=== PATIENT | male | born 1950 | race Caucasian/White ===

== ENCOUNTER 2023-04-21 08:12 | Outpatient (OUT) | payer MEDICARE, SELFPAY ==
--- NOTE | 2023-04-21 09:10 | CA_ITS ---
Patient Name: NIMCO LARA MR#: [id number] : 1950 Exam Date: 04/21/2023 Ordering Doctor: DR ANUJA DENTON M.D. ECHOCARDIOGRAM REPORT PROCEDURE: CA ECHO DOPPLER COMPLETE INDICATIONS: ASHD COMPARISON: None. DESCRIPTION: COMPLETE ECHOCARDIOGRAM Real-time transthoracic echocardiography with 2D, M-mode, spectral and color flow Doppler performed. QUALITY: Technical quality was adequate. LEFT VENTRICLE: Normal chamber size. Moderate left ventricular hypertrophy. LV EF: Global left ventricular systolic function is normal. Visual estimation of left ventricular ejection fraction is 55%. DIASTOLIC: Grade I diastolic dysfunction. ATRIAL SEPTUM: Inadequately seen. LEFT ATRIUM: Normal chamber size. RIGHT ATRIUM: Normal chamber size. RIGHT VENTRICLE: Mild dilatation. Normal right ventricular systolic function. TRICUSPID VALVE: Normal mobility and thickness. No stenosis with trivial regurgitation. Unable to assess right-sided pressures due to lack of measurable tricuspid regurgitation. MITRAL VALVE: Normal mobility and thickness. No evidence of mitral valve stenosis. Mild mitral annular calcification. Trivial mitral regurgitation. AORTIC VALVE: Normal trileaflet appearance. No visible sclerosis. Normal leaflet mobility. No evidence of aortic valve stenosis. No aortic regurgitation. AORTIC ROOT: Normal diameter and appearance. PULMONIC VALVE: Normal thickness and mobility. No stenosis. Trivial regurgitation. PERICARDIUM: Anterior free space; trivial effusion versus fat pad. IVC: Mild dilatation. Measuring 2.2cm. Collapses with inspiration. CONCLUSION: 1. Global left ventricular systolic function is normal; visually estimated ejection fraction is 55 to 60% 2. Moderately increased left ventricular wall thickness 3. The right ventricle is mildly dilated with normal systolic function 4. Grade 1, mild diastolic dysfunction 5. No significant valvular abnormalities 6. Anterior free space; trivial effusion versus fat pad Adult Echocardiography Procedure Report Left Ventricle LVEDD (3.7 - 5.6 cm): 4.32 cm LVESD (2.2 - 4.0 cm): 3.38 cm LVIVS thickness (0.6 - 1.2 cm): 1.46 cm, 1.50 cm LVPW thickness (0.5 - 1.0 cm): 1.54 cm e': 0.06 m/s E - e': 12.91 LVOT Max Gradient: 2.49 mm[Hg] LVOT Area (cm2): 0.79 m/s Peak Velocity (LVOT): 0.79 m/s Mean Velocity (LVOT): 0.51 m/s LVOT Diameter 2.31 cm Left Ventricular Ejection Fraction: 57.33 % Left Atrium LA Volume Index (2D A2C): 36.98 ml/m2 Left Atrium Systolic Dimension: 3.61 cm Mitral Valve MV E to A Ratio: 0.80 Mitral Valve A-Wave Peak Velocity: 1.05 m/s Mitral Valve E-Wave Peak Velocity: 0.84 m/s Right Ventricle RV Internal Diastolic Dimension: 4.29 cm Aorta AO Root Diam: 3.57 cm Ascending Ao Diam: 3.26 cm Aortic Valve AoV Area (Peak Bradford): 2.71 cm2, 2.71 cm2 AoV Area (VTI): 3.30 cm2, 3.30 cm2 Peak Velocity(Antegrade Flow): 1.22 m/s Peak Gradient(Antegrade Flow): 5.93 mm[Hg] Mean Velocity(Antegrade Flow): 0.74 m/s Mean Gradient(Antegrade Flow): 2.63 mm[Hg] Velocity Time Integral: 21.42 cm Tricuspid Valve Peak Velocity (Regurgitant Flow): 1.57 m/s, 1.70 m/s Pulmonic Valve Mean Gradient: 2.09 mm[Hg], 1.80 mm[Hg] Mean Velocity: 0.66 m/s, 0.61 m/s Peak Velocity: 1.03 m/s Peak Gradient: 4.49 mm[Hg], 3.96 mm[Hg] Right Atrium Right Atrium Systolic Pressure: 72.73 ml, 72.73 ml Dictated by: Nicola Diego M.D. on 04/22/2023 at 14:29 Approved by: Nicola Diego M.D. on 04/22/2023 at 14:34
== END 2023-04-21 08:13 | disposition home or self-care (01) ==
LOC: CARD 08:12
PROVIDERS: PCP Internal Medicine Interventional Cardiology; Visit Provider Internal Medicine Interventional Cardiology
DX: I25.10 Atherosclerotic heart disease of native coronary artery without angina pectoris (principal)
CPT/HCPCS: 93306

== ENCOUNTER 2023-06-30 10:07 | Outpatient (OUT) | payer MEDICARE, SELFPAY ==
--- NOTE | 2023-06-30 | XR_ITS ---
The [address] [address] Patient Name: NIMCO LARA MRN: [id number] date: 1950 Sex: M Assigned Patient Location: Current Patient Location: Accession/Order Number: [id number] Exam Date: 06/30/2023 10:08 Report Date: 06/30/2023 10:23 At the request of: ARNOLD PEOPLES Procedure: XR foot RT min 3V PROCEDURE: XR foot RT min 3V COMPARISON: 03/22/2022 HISTORY: RIGHT FOOT PAIN FINDINGS: BONES:No acute fracture or dislocation. No new focal lytic or sclerotic changes. 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 Moderate to severe degenerative changes with joint space narrowing and marginal osteophyte formation. Mild articulation of the first metatarsal-phalangeal joint. Moderate enthesopathic spurring of the calcaneus. SOFT TISSUES:Plantar forefoot soft tissue swelling EFFUSION:None visible. OTHER: Negative. XR/XR foot RT min 3V IMPRESSION: No plain film evidence of osteomyelitis Electronically authenticated by: AVANI HOOK Date: 06/30/2023 10:23
--- OUTSIDE RECORDS SUMMARY | 2023-06-30 10:11 | XMS_ITS | CCD ---
Author Name Unknown Address [address] [facility] [address] [place] [address] Organization [facility] Care Team Providers Care Apprentice Plant Attendant Name Role Phone PHYSICIAN, DEFAULT Unavailable Unavailable PHYSICIAN, DEFAULT Unavailable Unavailable Diego Bartlett Primary Care Provider Jordan Duncan Primary Care Provider Jordan Duncan MD Primary Care Provider JORDAN DUNCAN Primary Care Physician [phone] Jordan Duncan MD Primary Care Provider [phone] JORDAN DUNCAN Primary Care Physician Unavail able Jordan Duncan MD Primary Care Provider ENEDINA HARGROVE Attending Unavailable HEMEENOC ., DR ALATORRE Primary Care Unavailable ENEDINA HARGROVE Admitting Unavailable ENEDINA HARGROVE Admitting Unavailable ENEDINA HARGRVOE Attending Unavailable HEMEENOC ., DR ALATORRE Primary Care Unavailable ENEDINA HARGROVE Admitting Unavailable ENEDINA HARGROVE Attending Unavailable HEMEENOC ., DR ALATORRE Primary Care Unavailable ORA, DR BRODY Ordoñez Consulting Unavailable ENEDINA HARGROVE Consulting Unavailable ENEDINA HARGROVE Admitting Unavailable ENEDINA HARGROVE Attending Unavailable HEMEYER ., DR ALATORRE Primary Care Unavailable ARNOLD PEOPLES Attending Unavailable ARNOLD PEOPLES Admitting Unavailable HEMEYER ., DR ALATORRE Primary Care Unavailable HEMEENOC ., DR ALATORRE Primary Care Unavailable ENEDINA HARGROVE Attending Unavailable ENEDINA HARGROVE Admitting Unavailable ARNOLD PEOPLES Admitting Unavailable ARNOLD PEOPLES Attending Unavailable HEMEYER ., DR ALATORRE Primary Care Unavailable KERI ., DR OBANDO Consulting Unavailable STEVENSON ., DR OBANDO Attending Unavailable STEVENSON ., DR OBANDO Admitting Unavailable HEMEYER ., DR ALATORRE Primary Care Unavailable LINNEA IICHANI Consulting Unavailable FILMATEO OWENS Consulting Unavailable HEMEYER ., DR ALATORRE Primary Care Unavailable HEMEYER ., DR ALATORRE Consulting Unavailable HEMEYER ., DR ALATORRE Attending Unavailable HEMEYER ., DR ALATORRE Admitting Unavailable STEVENSON ., DR OBANDO Consulting Unavailable STEVENSON ., DR OBANDO Attending Unavailable HEMEYER ., DR ALATORRE Primary Care Unavailable STEVENSON ., DR OBANDO Admitting Unavailable DARRIUS BOLTON Consulting Unavailable BEENA, ENEDINA Schultz Attending Unavailable HIGHLSULAIMAN, ENEDINA Schultz Admitting Unavailable HEMEYER ., DR ALATORRE Primary Care Unavailable HIGHLANDER, ENEDINA Schultz Attending Unavailable HIGHLSULAIMAN, ENEDINA Schultz Admitting Unavailable HEMEYER ., DR ALATORRE Primary Care Unavailable ANUJA DENTON Attending Unavailable JUAN LIU Referring Unavailable HEMEYER, JORDAN Brown Primary Care Unavailable HEMEYER, JORDAN Brown Primary Care Unavailable WILLI SANCHEZ Referring Unavailable HEMEYER, JORDAN Brown Attending Unavailable HEMEYER, JORDAN Brown Attending Unavailable STEVENSON, Hudson R Attending Unavailable STEVENSON, Hudson R Attending Unavailable STEVENSON, Hudson R Attending Unavailable STEVENSON, Hudson R Attending Unavailable STEVENSON, Hudson R Attending Unavailable STEVENSON, Hudson R Attending Unavailable STEVENSON, Hudson R Attending Unavailable STEVENSON, Hudson R Attending Unavailable STEVENSON, Hudson R Attending Unavailable STEVENSON, Hudson R Attending Unavailable STEVENSON, Hudson R Attending Unavailable HEMEYER, JORDAN J Attending Unavailable STEVENSON, Hudson R Attending Unavailable STEVENSON, Hudson R Attending Unavailable STEVENSON, Hudson R Attending Unavailable Allergies Allergy Classification Reported Allergen(s) Allergy Type Date of Onset Reaction(s) Facility (4 sources) Clindamycin/Linc omycin Propensity to adverse reactions to drug 8 Diarrhea [place], [place] (2 sources) Clindamycin Drug Allergy 2 [facility] (3 sources) glipiZIDE; 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: [GLIPIZIDE] Drug Allergy 2 Diarrhea [facility] Work Phone: (3 sources) metFORMIN; 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: [METFORMIN] Drug Allergy 2 Diarrhea [facility] Work Phone: (3 sources) Pravastatin; 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: [PRAVASTATIN] Drug Allergy 2 [facility] Work Phone: (3 sources) rosuvastatin; 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: [ROSUVASTATIN] Drug Allergy 2 [employer] Phone: (2 sources) Clindamycin; 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: [CLINDAMYCIN] Drug Allergy [address] [facility] Repository (1 source) glipiZIDE Drug Allergy [address] [facility] (1 source) metFORMIN Drug Allergy [address] [facility] (1 source) ezetimibe; 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: [EZETIMIBE] Drug Allergy 2 [facility] Repository Medications Current Medications Medication Drug Class(es) Dates Sig (Normalized) Sig (Original) aspirin 81 mg oral tablet (20 sources) Platelet Aggregation Inhibitor, Nonsteroidal Anti-inflammatory Drug Start: 01-01-2019 take 1 mg by mouth once daily aspirin 81 mg oral tablet mg tab(s), Oral, Daily, Refills(s) 0 Start Date: 01/01/19 Status: Ordered B Complex Vitamins (VITAMIN B COMPLEX PO) (6 sources) B Complex Vitamins (VITAMIN B COMPLEX PO) Take by mouth daily 0 Active B Complex Vitami ns (VITAMIN B COMPLEX PO) Take by mouth. 0 Active Simbrinza (20 sources) Carbonic Anhydrase Inhibitor, alpha-Adrenergic Agonist Start: 01-01-2019 take 1 drop(s) into the eye(s) twice daily Simbrinza drop(s), Eye-Both, BID, Refill(s) 0 Start Date: 01/01/19 Status: Ordered brinzolamide-latia monidine 1-0.2 % SUSP Apply to eye 3 times daily 0 Active cholecalciferol 0.05 mg oral tablet (6 sources) Vitamin D Cholecalciferol (VITAMIN D3) 50 MCG (2000 UT) TABS Take by mouth daily 0 Active Cholecalciferol (VITAMIN D3) 3000 UNITS TABS Take by mouth daily 0 Active Cholecalciferol (VITAMIN D3) 3000 UNITS TABS Take by mouth. 0 Active cyclobenzaprine hydrochloride 10 mg oral tablet (1 source) Muscle Relaxant Start: 06-20-2023 take 1 tablet by mouth three times daily as needed for muscle spasms cyclobenzaprine 10 mg Tab 10 mg = 1 tab(s), Oral, TID, PRN for spasm, # 30 tab(s), Refills(s) 0 Start Date: 06/20/23 Status: Ordered diclofenac sodium 75 mg delayed release oral tablet (1 source) Nonsteroidal Anti-inflammatory Drug Start: 06-20-2023 diclofenac sodium 75 mg Oral EC Tab Refills(s) 0 Start Date: 06/20/23 Status: Ordered empagliflozin 25 mg oral tablet (20 sources) Sodium-Glucose Cotransporter 2 Inhibitor Start: 08-17-2018 take 1 mg by mouth once daily in the morning Jardiance 25 mg oral tablet mg tab(s), Oral, qAM, Refills(s) 0 Start Date: 01/01/19 Status: Ordered glipiZIDE 10 mg oral tablet (20 sources) Sulfonylurea Start: 01-01-2019 take 10 mg by mouth once daily glipiZIDE 10 mg, Oral, Daily, Refills(s) 0 Start Date: 01/01/19 Status: Ordered latanoprost 0.05 mg/ml ophthalmic solution (20 sources) Prostaglandin Analog Start: 02-25-2020 latanoprost Opth 0.005% Richelle Refill(s) 0 Start Date: 02/25/20 Status: Ordered Start: 07-27-2018 take 1 drop(s) into the eye(s) once daily in the evening latanoprost (XALATAN) 0.005 % ophthalmic solution INSTILL 1 DROP INTO AFFECTED EYE(S) BY OPHTHALMIC ROUTE ONCE DAILY IN THE EVENING 2 07/27/2018 Active latanoprost Opth 0.005% Richelle (3 sources) Start: 02-25-2020 latanoprost Op th 0.005% Richelle Refill(s) 0 Start Date: 02/25/20 Status: Ordered losartan potassium 50 mg oral tablet (20 sources) Angiotensin 2 Receptor Justice Start: 09-29-2021 take 1 tablet by mouth once daily losartan (COZAAR) 50 MG tablet TAKE 1 TABLET BY MOUTH EVERY DAY FOR 90 DAYS 0 09/29/2021 Active Start: 02-25-2020 losartan 100 m g Tab Refills(s) 0 Start Date: 02/25/20 Status: Ordered take 2 tablets by mo uth once daily losartan (COZAAR) 25 MG tablet Take 50 mg by mouth daily 0 Active Metoprolol (7 sources) beta-Adrenergic Justice Start: 06-20-2023 METOPR OLOL TARTRATE 100 MG TAB METOPROLOL TARTRATE 100 MG TAB Start Date: 06/20/23 Status: Ordered take 2 tablets by mo [facility] twice daily in the evening metoprolol (TOPROL-XL) 25 MG XL tablet T tanya 2 tablets by mouth 2 times daily 100mg in the am, 50mg in the pm 0 Active Multiple Vitamin (MULTIVITAMIN ADULT PO) (1 source) Multiple Vitamin (MULTIVITAMIN ADULT PO) Take by mouth 0 Active netarsudil 0.2 mg/ml ophthalmic solution (2 sources) Rho Kinase Inhibitor Start: 07-21-19 take 1 drop(s) into the eye(s) once daily RHOPRESSA 0.02 % SOLN PLACE 1 DROP INTO LEFT EYE EVERYDAY 0 07/21/2021 Active niacin 500 mg oral tablet (2 sources) Nicotinic Acid take 1 tablet by mouth twice daily niacin 500 MG tablet Take 500 mg by mouth 2 times daily 0 Active 24 hr oxybutynin chloride 5 mg extended release oral tablet (20 sources) Cholinergic Muscarinic Antagonist Start: 05-26-20 take 1 tablet by mouth once daily oxybutynin 5 mg ER Tab 5 mg = 1 tab(s), Oral, Daily, # 90 tab(s), Refills(s) 3, Pharmacy: [facility]/pharmacy #[id number], 198, cm, 11/05/22 10:14:00 EDT, Height/Length Dosing, 150, kg, 11/05/22 10:14:00 EDT, Weight Dosing Start Date: 05/26/23 Status: Ordered Start: 09-08-2017 take 1 tablet by [facility] once daily oxybutynin 5 mg ER Tab 5 mg = 1 tab(s), Oral, Daily, # 90 tab(s), Refills(s) 3, Pharmacy: [facility]/pharmacy #[id number], 198, cm, 06/18/22 9:10:00 EST, Height/Length Dosing, 164, kg, 06/18/22 9:10:00 EST, Weight Dosing Start Date: 06/21/22 Status: Ordered pioglitazone 45 mg oral tablet (20 sources) Peroxisome Proliferator Receptor alpha Agonist, Peroxisome Proliferator Receptor gamma Agonist, Thiazolidinedione Start: 02-25-2020 pioglitazone 45 mg Tab Refills(s) 0 Start Date: 02/25/20 Status: Ordered take 1 tablet by mouth once jovana y pioglitazone (ACTOS) 30 MG tablet Take 1 tablet by mouth daily 0 Active pravastatin sodium 40 mg oral tablet (20 sources) HMG-CoA Reductase Inhibitor Start: 02-25-2020 pravastatin 40 mg Ta b Refills(s) 0 Start Date: 02/25/20 Status: Ordered take 2 tablets by mouth once pablo ly pravastatin (PRAVACHOL) 20 MG tablet Take 40 mg by mouth daily. 0 Active tamsulosin hydrochloride 0.4 mg oral capsule (10 sources) alpha-Adrenergic Justice Start: 05-26-2023 take 1 capsule by mouth once daily tamsulosin 0.4 mg Cap 0.4 mg = 1 cap(s), Oral, Daily, # 90 cap(s), Refills(s) 3, Pharmacy: [facility]/pharmacy #[id number], 198, cm, 11/05/22 10:14:00 EDT, Height/Length Dosing, 150, kg, 11/05/22 10:14:00 EDT, Weight Dosing Start Date: 05/26/23 Status: Ordered Start: 06-18-2022 take 1 capsule by [facility] once daily tamsulosin 0.4 mg Cap 0.4 mg = 1 cap(s), Oral, Daily, # 90 cap(s), Refills(s) 3, Pharmacy: [facility]/pharmacy #[id number], 198, cm, 06/18/22 9:10:00 EST, Height/Length Dosing, 164, kg, 06/18/22 9:10:00 EST, Weight Dosing Start Date: 06/18/22 Status: Ordered 1 ml testosterone cypionate 200 mg/ml injection (6 sources) Androgen Start: 07-12-2017 testosterone c ypionate (DEPOTESTOTERONE CYPIONATE) 200 MG/ML injection Inject 1 mL into the muscle. Once a month 4 07/12/2017 Active testosterone cypionate 200 mg/mL IM Richelle (9 sources) Start: 06-20-2023 testosterone c ypionate 200 mg/mL IM Richelle 450 mg, IntraMuscular, q4wk, # 10 mL, Refills(s) 1, Pharmacy: [facility]/pharmacy #[id number], 198, cm, 06/20/23 11:05:00 EST, Height/Length Dosing, 149, kg, 06/20/23 11:05:00 EST, Weight Dosing Start Date: 06/20/23 Status: Ordered Start: 05-09-2023 testosterone c ypionate 200 mg/mL IM Richelle 400 mg, IntraMuscular, q4wk, # 10 mL, Refills(s) 1, Pharmacy: [facility]/pharmacy #[id number], 198, cm, 11/05/22 10:14:00 EDT, Height/Length Dosing, 150, kg, 11/05/22 10:14:00 EDT, Weight Dosing Start Date: 05/09/23 Status: Ordered Start: 02-08-2023 testosterone c ypionate 200 mg/mL IM Richelle 400 mg, IntraMuscular, q4wk, # 10 mL, Refills(s) 2, Pharmacy: [facility]/pharmacy #[id number], 198, cm, 11/05/22 10:14:00 EDT, Height/Length Dosing, 150, kg, 11/05/22 10:14:00 EDT, Weight Dosing Start Date: 02/08/23 Status: Ordered Start: 08-27-2022 testosterone c ypionate 200 mg/mL IM Richelle 400 mg, IntraMuscular, q4wk, # 10 mL, Refills(s) 2, Pharmacy: [facility]/pharmacy #[id number], 198, cm, 06/18/22 9:10:00 EST, Height/Length Dosing, 164, kg, 06/18/22 9:10:00 EST, Weight Dosing Start Date: 08/27/22 Status: Ordered testosterone cypionate 200 mg/mL intramuscular solution (17 sources) Start: 02-01-2022 testosterone c ypionate 200 mg/mL intramuscular solution 400 mg = 2 mL, IntraMuscular, q4wk, 400mg once a month, # 10 mL, Refills(s) 3, Pharmacy: [facility]/pharmacy #[id number], 198, cm, 02/01/22 9:53:00 EDT, Height/Length Dosing, 166, kg, 02/01/22 9:53:00 EDT, Weight Dosing Start Date: 02/01/22 Status: Ordered Start: 11-23-2021 testosterone c ypionate 200 mg/mL intramuscular solution 350 mg, IntraMuscular, q4wk, # 10 mL, Refills(s) 1, Pharmacy: [facility]/pharmacy #[id number], 198, cm, 08/03/21 14:37:00 EST, Height/Length Dosing, 166, kg, 08/03/21 14:37:00 EST, Weight Dosing Start Date: 11/23/21 Status: Ordered Start: 08-03-2021 testosterone c ypionate 200 mg/mL intramuscular solution 350 mg, IntraMuscular, q4wk, # 10 mL, Refills(s) 1, Pharmacy: [facility]/pharmacy #[id number], 198, cm, 08/03/21 14:37:00 EST, Height/Length Dosing, 166, kg, 08/03/21 14:37:00 EST, Weight Dosing Start Date: 08/03/21 Status: Ordered timolol 0.005 mg/mg ophthalmic gel (6 sources) beta-Adrenergic Justice Start: 05-23-2014 apply 1 drop(s) into the eye(s) once daily timolol (TIMOPTIC-XE) 0.5 % ophthalmic gel-forming Place 1 drop into both eyes daily 3 05/23/2014 Active Completed/Discontinued Medications Medication Drug Class(es) Dates Sig (Normalized) Sig (Original) Fish Oils (1 source) End: 01-12-2019 FISH OIL by Does not apply route daily 0 01/12/2019 Discontinued (Therapy completed) Problems Active Problems Problem Classification Problem Date Documented Da te Episodic/Chronic Acquired foot deformities (1 source) Hallux rigidus, right foot; 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: [HALLUX RIGIDUS RIGHT FOOT] Onset: 05-03-2022 Chronic Acquired foot deformities (1 source) Other hammer toe(s) (acquired), left foot; 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: [OTHER HAMMER TOES ACQUIRED LT FOOT] Onset: 05-03-2022 Chronic Acute myocardial infarction (20 sources) Myocardial infarction 02-19-2019 Chronic Cancer of colon (20 sources) History of malignant neoplasm of colon; 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: [Personal history of other malignant neoplasm of large intestine] Onset: 10-12-2022 02-19-2019 Episodic Cancer of rectum and anus (6 sources) Malignant tumor of anus; 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: [Malignant neoplasm of anus, unspecified] Onset: 03-15-2012 08-04-2016 Chronic Chronic ulcer of skin (4 sources) Non-pressure chronic ulcer of other part of right foot with fat layer exposed; 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: [Non-pressure chronic ulcer of left heel and midfoot limited to breakdown of skin] Onset: 01-13-2022 Chronic Coronary atherosclerosis and other heart disease (20 sources) Coronary arteriosclerosis; 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: [Atherosclerotic heart disease of habematolel coronary artery without angina pectoris] Onset: 03-02-2022 02-19-2019 Chronic Coronary atherosclerosis and other heart disease (6 sources) History of placement of stent for coronary artery disease; 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: [Presence of coronary angioplasty implant and graft] Onset: 05-13-2014 05-13-2014 Episodic Diabetes mellitus with complications (12 sources) Diabetic peripheral neuropathy; 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: [Type 2 diabetes mellitus with diabetic polyneuropathy] Onset: 08-04-2016 08-04-2016 Chronic Diabetes mellitus without complication (20 sources) Type 2 diabetes mellitus; 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: [Type 2 diabetes mellitus with other diabetic neurological complication] Onset: 08-04-2016 08-04-2016 Chronic Disorders of lipid metabolism (14 sources) Hyperlipidemia; 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: [Hyperlipidemia, unspecified] Onset: 05-13-2014 05-13-2014 Chronic Essential hypertension (20 sources) Hypertensive disorder; 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: [Essential (primary) hypertension] Onset: 05-13-2014 08-04-2016 Chronic Genitourinary symptoms and ill-defined conditions (20 sources) Increased frequency of urination; 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: [Nocturia] Onset: 02-01-2022 01-01-2019 Episodic Glaucoma (20 sources) Open-angle glaucoma 02-19-2019 Chronic Hyperplasia of prostate (20 sources) Benign prostatic hypertrophy with outflow obstruction; 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: [Benign prostatic hyperplasia with lower urinary tract symptoms] Onset: 02-01-2022 09-08-2020 Chronic Infective arthritis and osteomyelitis (except that caused by tuberculosis or sexually transmitted disease) (7 sources) Acute osteomyelitis of metatarsal; 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: [Other acute osteomyelitis, right ankle and foot] Onset: 08-05-2016 08-05-2016 Chronic 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 (1 source) oil heaterman (current) use of anticoagulants; 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: [SUPERINTENDENT PRESSURE CURRNT USE ANTICOAGULANTS] Onset: 10-12-2022 Episodic 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 (1 source) snf (current) use of aspirin; 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: [HALF-WAY CURRENT USE OF ASPIRIN] Onset: 10-12-2022 Episodic 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 (1 source) oil heaterman (current) use of oral hypoglycemic drugs; 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: [SUPERINTENDENT PRESSURE USE ORAL HYPOGLYCEMIC DX] Onset: 10-12-2022 Episodic 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 (1 source) Other fci (current) drug therapy; 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: [OTH HALF-WAY CURRENT DRUG THERAPY] Onset: 09-20-2022 Episodic Other circulatory disease (1 source) Other specified peripheral vascular diseases; 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: [OTH SPEC PERIPHERAL VASC DISEASES] Onset: 05-03-2022 Chronic Other connective tissue disease (1 source) Presence of artificial knee joint, bilateral; 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: [PRESENCE ARTIFICIAL KNEE JNT BILAT] Onset: 10-12-2022 Chronic Other endocrine disorders (11 sources) Disorder of pituitary gland; 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: [Disorder of pituitary gland, unspecified] Onset: 08-31-2021 Chronic Other endocrine disorders (20 sources) Hypogonadism 01-01-2019 Chronic Other endocrine disorders (20 sources) Male hypogonadism 01-01-2019 Chronic Other endocrine disorders (5 sources) Testicular hypofunction; 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: [Testicular hypofunction] Onset: 12-21-2021 Chronic Other endocrine disorders (1 source) Testicular hypofunction; 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: [TESTICULAR HYPOFUNCTION] Onset: 10-12-2022 Chronic Other gastrointestinal disorders (20 sources) H/O: liver disease 11-05-2019 Episodic Other hematologic conditions (11 sources) Erythrocytosis; 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] Onset: 04-05-2014 04-05-2014 Episodic Other male genital disorders (20 sources) Impotence 01-01-2019 Chronic Other male genital disorders (15 sources) Phimosis; 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: [Phimosis] Onset: 05-17-2022 Episodic Other male genital disorders (5 sources) Phimosis; 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: [PHIMOSIS] Onset: 09-20-2022 Episodic Other nutritional; endocrine; and metabolic disorders (6 sources) Morbid obesity; 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: [Morbid (severe) obesity due to excess calories] Onset: 08-05-2016 08-05-2016 Chronic Other screening for suspected conditions (not mental disorders or infectious disease) (13 sources) Patient encounter status; 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: [Encounter for screening for malignant neoplasm of colon] Onset: 02-12-2014 Resolved: 04-03-2018 04-03-2018 Episodic Residual codes; unclassified (6 sources) Obstructive sleep apnea syndrome; 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: [Obstructive sleep apnea (adult) (pediatric)] Onset: 10-01-2015 08-04-2016 Chronic Residual codes; unclassified (20 sources) Sleep apnea 02-19-2019 Chronic Residual codes; unclassified (1 source) Sleep apnea, unspecified; 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: [SLEEP APNEA UNSPECIFIED] Onset: 10-12-2022 Chronic Residual codes; unclassified (2 sources) Obstructive sleep apnea (adult) (pediatric); 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: [Obstructive sleep apnea (adult) (pediatric)] Onset: 04-08-2023 Chronic Residual codes; unclassified (20 sources) H/O: anticoagulant therapy 01-01-2019 Episodic Residual codes; unclassified (1 source) Family history of malignant neoplasm of digestive organs; 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: [FAM HX MALIG NEOPLASM DIGESTIV ORGN] Onset: 09-20-2022 Episodic Superficial injury; contusion (6 sources) Blister (nonthermal), left foot, initial encounter; 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: [Blister (nonthermal), right foot, sequela] Onset: 05-03-2022 Episodic Unclassified (3 sources) History of cardiac catheterization; 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: [S/P cardiac cath] Onset: 05-13-2014 05-13-2014 Unclassified (3 sources) CONTACT W/AND (SUSP) EXPOS COVID-19; 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: [CONTACT W/AND (SUSP) EXPOS COVID-19] Onset: 01-19-2022 Past or Other Problems Problem Classification Problem Date Documented Date Episodic/Chronic Acquired foot deformities (2 sources) Flat foot [pes planus] (acquired), unspecified foot; 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: [Other acquired deformities of left foot] Onset: 05-03-2022 Episodic Mycoses (5 sources) Tinea unguium; 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: [TINEA UNGUIUM] Onset: 04-15-2022 Episodic Other connective tissue disease (1 source) Pain in left foot; 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: [PAIN IN LEFT FOOT] Onset: 05-25-2022 Episodic Other connective tissue disease (1 source) Plantar fascial fibromatosis; 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: [PLANTAR FASCIAL FIBROMATOSIS] Onset: 04-15-2022 Episodic Other connective tissue disease (4 sources) Pain in right foot; 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: [PAIN IN RIGHT FOOT] Onset: 03-22-2022 Episodic Other hematologic conditions (1 source) Secondary polycythemia; 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] Onset: 04-05-2014 Episodic Other lower respiratory disease (1 source) Other specified respiratory disorders; 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: [OTHER SPEC RESPIRATORY DISORDERS] Onset: 01-19-2022 Episodic Other skin disorders (1 source) Nail dystrophy; 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: [NAIL DYSTROPHY] Onset: 05-25-2022 Episodic Other skin disorders (5 sources) Corns and callosities; 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: [CORNS AND CALLOSITIES] Onset: 05-03-2022 Episodic Residual codes; unclassified (3 sources) History of cardiac catheterization; 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: [Other specified postprocedural states] Onset: 05-13-2014 05-13-2014 Episodic Residual codes; unclassified (1 source) Pain, unspecified; 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: [PAIN UNSPECIFIED] Onset: 01-19-2022 Episodic Skin and subcutaneous tissue infections (6 sources) Cellulitis and abscess of toe; 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: [Cellulitis of right toe] Onset: 08-04-2016 08-05-2016 Episodic Unclassified (3 sources) Patient encounter status; 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: [Screening for colorectal cancer] Onset: 02-12-2014 Resolved: 04-03-2018 04-03-2018 Unclassified (1 source) CONTACT W/AND (SUSP) EXPOS COVID-19; 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: [CONTACT W/AND (SUSP) EXPOS COVID-19] Onset: 01-18-2022 Results Test Name Value Interpretation Reference Range Facil ity Lab Reportson 05-31-2023 Lab Reports [id number] [facility] CBC W/AUTO DIFFon 04-26-2023 ABS NEUTROPHILS 3.94 K/uL Normal 1.50-7.50 [facility] Basophils (Bld) [#/Vol] 0.03 10*3/uL Normal 0.00-0.20 [facility] Basophils/100 WBC (Bld) 0.5 % Normal [facility] Eosinophils (Bld) [#/Vol] 0.30 10*3/uL Normal 0.00-0.50 [facility] Eosinophils/100 WBC (Bld) 5.1 % Normal [facility] Erythrocyte distribution width (RBC) [Ratio] 12.7 % Normal 11.5-15.0 [facility] Hematocrit (Bld) [Volume fraction] 49.6 % Normal 40.0-51.0 [facility] Hemoglobin (Bld) [Mass/Vol] 17.4 g/dL High 13.5-17.0 [facility] Lymphocytes (Bld) [#/Vol] 1.06 10*3/uL Normal 1.00-4.00 [facility] Lymphocytes/100 WBC (Bld) 17.9 % Normal [facility] MCH (RBC) [Entitic mass] 33.7 pg High 25.0-33.0 [facility] MCHC (RBC) [Mass/Vol] 35.1 g/dL Normal 31.0-36.0 [facility] MCV (RBC) [Entitic vol] 95.9 fL Normal 80.0-99.0 [facility] Monocytes (Bld) [#/Vol] 0.57 10*3/uL Normal 0.20-1.00 [facility] Monocytes/100 WBC (Bld) 9.6 % Normal [facility] Neutrophils/100 WBC (Bld) 66.6 % Normal [facility] Platelet mean volume (Bld) [Entitic vol] 12.7 fL Normal 9.3-13.0 [facility] Comment on above: Result Comment: [facility] [address] [place] [address] CLIA No. [id number] CAP Accreditation No. [id number] Gyroscopic Instrument Mechanic: Shaunna Dee M.D. Platelets (Bld) [#/Vol] 125 10*3/uL Low 130-400 [facility] RBC (Bld) [#/Vol] 5.17 10*6/uL Normal 4.50-6.10 [facility] WBC (Bld) [#/Vol] 5.9 10*3/uL Normal 3.5-11.0 [facility] COMPREHENSIVE METABOLIC PANE L WITH GFRon 04-26-2023 Albumin [Mass/Vol] 4.8 g/dL Normal 3.5-5.2 [facility] ALK PHOS 74 U/L Normal 40-125 [facility] ALT [Catalytic activity/Vol] 23 U/L Normal 5-50 [facility] Anion gap [Moles/Vol] 11.0 mmol/L Normal 7.0-16.0 [facility] AST-SGOT 25 U/L Normal 9-50 [facility] Bilirubin.direct [Mass/Vol] 0.7 mg/dL Normal <=1.2 [facility] Calcium [Mass/Vol] 9.4 mg/dL Normal 8.5-10.5 [facility] Chloride [Moles/Vol] 102 mmol/L Normal 95-107 [facility] CO2 [Moles/Vol] 25 mmol/L Normal 19-31 [facility] Creatinine [Mass/Vol] 0.80 mg/dL Normal 0.80-1.40 [facility] GFR/1.73 sq M.predicted among non-blacks MDRD (S/P/Bld) [Vol rate/Area] 95 mL/min/{1.73_m2} Normal >60 [facility] Glucose [Mass/Vol] 148 mg/dL High 70-99 [facility] Potassium [Moles/Vol] 4.4 mmol/L Normal 3.5-5.4 [facility] Protein [Mass/Vol] 7.0 g/dL Normal 6.1-8.3 [facility] Sodium [Moles/Vol] 138 mmol/L Normal 133-146 [facility] Urea nitrogen [Mass/Vol] 16 mg/dL Normal 8-23 [facility] Office Visiton 04-08-2023 Follow-up visit [id number] Juan Miguel Jennings 1950 M Date Provider Department Center 04/08/2023 AbhayANUJA DENTON [facility] Family History Problem Relation Age of Onset Heart disease Mother Heart disease Father Family Status - Relation Status Age at Mother Father Level of Service:82931 PA OFFICE/OUTPATIENT ESTABLISHED MOD MDM 30-39 MIN Normal [facility] Medication Consenton 023 Medication Consent [id number] [facility] Ambulatory Visit Summaryon 1 Ambulatory Visit Summary JUAN MIGUEL JENNINGS :1950 Visit Date:04/04/2023 Ambulatory Visit Instructions Your Diagnosis Hypogonadism Your Care Team Attending Physician - KERI NOLASCO, Hudson Ordoñez Primary Care Physician - DAKOTA NOLASCO, JORDAN Brown This Is Your Medications List aspirin (aspirin 81 mg oral tablet) brimonidine-brinzolam gail ophthalmic (Simbrinza) empagliflozin (Jardiance 25 mg oral tablet) glipiZIDE latanoprost ophthalmic (latanoprost Opth 0.005% Richelle) losartan (losartan 100 mg Tab) oxybutynin (oxybutynin 5 mg ER Tab) pioglitazone (pioglitazone 45 mg Tab) pravastatin (pravastatin 40 mg Tab) tamsulosin (tamsulosin 0.4 mg Cap) testosterone (testosterone cypionate 200 mg/mL IM Richelle) Procedures Performed Circumcision (09/30/2022), foot surgery (05/23/2019), BACK SURGERY, RECTAL CANCER SURGERY, RIGHT VEIN REMOVED FROM LEG, Stent placement. What to do next Scheduled Follow-Up Appointments Tuesday 8:45 AM EST With: Where: [facility] Normal [address] [place] [address] [place] [address]- \.br\ Medications\.br\ What How Much When Instructions\.br\ Unchanged aspirin (aspirin 81 mg oral tablet) By Mouth Every day\.br\ Unchanged brimonidine-brinzola mide ophthalmic (Simbrinza) Both eyes 2 times a day\.br\ Unchanged empagliflozin (Jardiance 25 mg oral tablet) By Mouth Once a day (in the morning)\.br\ Unchanged glipiZIDE 10 Milligram By Mouth Every day\.br\ Unchanged latanoprost ophthalmic (latanoprost Opth 0.005% Richelle)\.br\ Unchanged losartan (losartan 100 mg Tab)\.br\ Unchanged oxybutynin (oxybutynin 5 mg ER Tab) 1 Tablets By Mouth Every day\.br\ Unchanged pioglitazone (pioglitazone 45 mg Tab)\.br\ Unchanged pravastatin (pravastatin 40 mg Tab)\.br\ Unchanged tamsulosin (tamsulosin 0.4 mg Cap) 1 Capsules By Mouth Every day\.br\ Unchanged testosterone (testosterone cypionate 200 mg/ mL IM Richelle) 400 Milligram Intramuscular Every 4 weeks\.br\ Medications and Immunizations Administered\.br\ Given\.br\ Depo-Testosterone 200 mg/mL intramuscular solution, 400 mg, IntraMuscular. 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 Please share your experience with us by completing your survey. We appreciate your feedback and thank you for choosing us for your care.\.br\ \.br\ [facility] Ambulatory Visit Summaryon 1 Ambulatory Visit Summary JANE JUAN MIGUEL Brown :1950 Visit Date:03/07/2023 Ambulatory Visit Instructions Your Diagnosis Hypogonadism Your Care Team Attending Physician - KERI NOLASCO, Hudson Ordoñez Primary Care Physician - DAKOTA NOLASCO, JORDAN Brown This Is Your Medications List aspirin (aspirin 81 mg oral tablet) brimonidine-brinzolam gail ophthalmic (Simbrinza) empagliflozin (Jardiance 25 mg oral tablet) glipiZIDE latanoprost ophthalmic (latanoprost Opth 0.005% Richelle) losartan (losartan 100 mg Tab) oxybutynin (oxybutynin 5 mg ER Tab) pioglitazone (pioglitazone 45 mg Tab) pravastatin (pravastatin 40 mg Tab) tamsulosin (tamsulosin 0.4 mg Cap) testosterone (testosterone cypionate 200 mg/mL IM Richelle) Procedures Performed Circumcision (09/30/2022), foot surgery (05/23/2019), BACK SURGERY, RECTAL CANCER SURGERY, RIGHT VEIN REMOVED FROM LEG, Stent placement. What to do next Scheduled Follow-Up Appointments Tuesday 8:45 AM EDT With: Where: [facility] Invalid Interpretation Code [address] [place] [address] [place] [address]- \.br\ Tuesday 9:45 AM EST \.br\ With: Hudson STEVENSON MD\.br\ Where: [facility] Ambulatory Visit Summaryon 0 02-08-2023 Ambulatory Visit Summary JANE JUAN MIGUEL Brown :1950 Visit Date:02/08/2023 Ambulatory Visit Instructions Your Diagnosis Hypogonadism Your Care Team Attending Physician - JORDAN DUNCAN MD Primary Care Physician - JORDAN DUNCAN MD This Is Your Medications List aspirin (aspirin 81 mg oral tablet) brimonidine-brinzolam gail ophthalmic (Simbrinza) empagliflozin (Jardiance 25 mg oral tablet) glipiZIDE latanoprost ophthalmic (latanoprost Opth 0.005% Richelle) losartan (losartan 100 mg Tab) oxybutynin (oxybutynin 5 mg ER Tab) pioglitazone (pioglitazone 45 mg Tab) pravastatin (pravastatin 40 mg Tab) tamsulosin (tamsulosin 0.4 mg Cap) testosterone (testosterone cypionate 200 mg/mL IM Richelle) Procedures Performed Circumcision (09/30/2022), foot surgery (05/23/2019), BACK SURGERY, RECTAL CANCER SURGERY, RIGHT VEIN REMOVED FROM LEG, Stent placement. What to do next Scheduled Follow-Up Appointments Tuesday 8:45 AM EDT With: Where: [facility] Invalid Interpretation Code [address] [place] [address] [place] [address]- \.br\ Tuesday 8:45 AM EST \.br\ With:\.br\ Where: [facility] Ambulatory Visit Summaryon 0 01-03-2023 Ambulatory Visit Summary JUAN MIGUEL JENNINGS :1950 Visit Date:01/03/2023 Ambulatory Visit Instructions Your Diagnosis Hypogonadism Your Care Team Attending Physician - Hudson STEVENSON MD Primary Care Physician - JORDAN DUNCAN MD This Is Your Medications List aspirin (aspirin 81 mg oral tablet) brimonidine-brinzolam gail ophthalmic (Simbrinza) empagliflozin (Jardiance 25 mg oral tablet) glipiZIDE latanoprost ophthalmic (latanoprost Opth 0.005% Richelle) losartan (losartan 100 mg Tab) oxybutynin (oxybutynin 5 mg ER Tab) pioglitazone (pioglitazone 45 mg Tab) pravastatin (pravastatin 40 mg Tab) tamsulosin (tamsulosin 0.4 mg Cap) testosterone (testosterone cypionate 200 mg/mL IM Richelle) Procedures Performed Circumcision (09/30/2022), foot surgery (05/23/2019), BACK SURGERY, RECTAL CANCER SURGERY, RIGHT VEIN REMOVED FROM LEG, Stent placement. What to do next Scheduled Follow-Up Appointments Tuesday 8:45 AM EDT Where: [facility] Lab Reportson 11-08-2022 Lab Reports [id number] .00CD:127 [facility] Ambulatory Visit Summaryon 0 11-05-2022 Ambulatory Visit Summary JUAN MIGUEL JENNINGS :1950 Visit Date:11/05/2022 Ambulatory Visit Instructions Your Diagnosis Elevated PSA BPH with urinary obstruction Hypogonadism Phimosis Urinary urgency Tests Performed Urnls Dip Stick Auto w/o Microscopy POC 32272 Your Care Team Attending Physician - KERI NOLASCO, Hudson Ordoñez Primary Care Physician - DAKOTA NOLASCO, JORDAN Brown This Is Your Medications List oxybutynin (oxybutynin 5 mg ER Tab) tamsulosin (tamsulosin 0.4 mg Cap) testosterone (testosterone cypionate 200 mg/mL IM Richelle) Contact prescribing physician if questions or concerns aspirin (aspirin 81 mg oral tablet) brimonidine-brinzolam gail ophthalmic (Simbrinza) empagliflozin (Jardiance 25 mg oral tablet) glipiZIDE latanoprost ophthalmic (latanoprost Opth 0.005% Richelle) losartan (losartan 100 mg Tab) pioglitazone (pioglitazone 45 mg Tab) pravastatin (pravastatin 40 mg Tab) Procedures Performed Circumcision (09/30/2022), foot surgery (05/23/2019), BACK SURGERY, RECTAL CANCER SURGERY, RIGHT VEIN REMOVED FROM LEG, Stent placement. Discharge Vitals Heart Rate (Peripheral) 68 Respiratory Rate 16 Blood Pressure 130/78 Height 198 cm Height 78 in Weight 150 kg Weight 330 lb BMI 38.26 What to do next Scheduled Follow-Up Appointments Tuesday 9:15 AM EDT Where: [facility] Normal [facility] Patient Educationon 11-06-19 Patient Education Urology Benign Prostatic Hyperplasia Benign prostatic hyperplasia (BPH) is an enlarged prostate gland that is caused by the normal aging process. The prostate may get bigger as a man gets older. The condition is not caused by cancer. The prostate is a walnut-sized gland that is involved in the production of semen. It is located in front of the rectum and below the bladder. The bladder stores urine. The urethra carries stored urine out of the body. An enlarged prostate can press on the urethra. This can make it harder to pass urine. The buildup of urine in the bladder can cause infection. Back pressure and infection may progress to bladder damage and kidney (renal) failure. What are the causes? This condition is part of the normal aging process. However, not all men develop problems from this condition. If the prostate enlarges away from the urethra, urine flow will not be blocked. If it enlarges toward the urethra and compresses it, there will be problems passing urine. What increases the risk? This condition is more likely to develop in men older than 50 years. What are the signs or symptoms? Symptoms of this condition include: ? Getting up often during the night to urinate. ? Needing to urinate frequently during the day. ? Difficulty starting urine flow. ? Decrease in size and strength of your urine stream. ? Leaking (dribbling) after urinating. ? Inability to pass urine. This needs immediate treatment. ? Inability to completely empty your bladder. ? Pain when you pass urine. This is more common if there is also an infection. ? Urinary tract infection (UTI). How is this diagnosed? This condition is diagnosed based on your medical history, a physical exam, and your symptoms. Tests will also be done, such as: ? A post-void bladder scan. This measures any amount of urine that may remain in your bladder after you finish urinating. ? A digital rectal exam. In a rectal exam, your health care provider checks your prostate by putting a lubricated, gloved finger into your rectum to feel the back of your prostate gland. This exam detects the size of your gland and any abnormal lumps or growths. ? An exam of your urine (urinalysis). ? A prostate specific antigen (PSA) screening. This is a blood test used to screen for prostate cancer. ? An ultrasound. This test uses sound waves to electronically produce a picture of your prostate gland. Your health care provider may refer you to a specialist in kidney and prostate diseases (urologist). How is this treated? Once symptoms begin, your health care provider will monitor your condition (active surveillance or watchful waiting). Treatment for this condition will depend on the severity of your condition. Treatment may include: ? Observation and yearly exams. This may be the only treatment needed if your condition and symptoms are mild. ? Medicines to relieve your symptoms, including: ? Medicines to shrink the prostate. ? Medicines to relax the muscle of the prostate. ? Surgery in severe cases. Surgery may include: ? Prostatectomy. In this procedure, the prostate tissue is removed completely through an open incision or with a laparoscope or robotics. ? Transurethral resection of the prostate (TURP). In this procedure, a tool is inserted through the opening at the tip of the penis (urethra). It is used to cut away tissue of the inner core of the prostate. The pieces are removed through the same opening of the penis. This removes the blockage. ? Transurethral incision (TUIP). In this procedure, small cuts are made in the prostate. This lessens the prostate's pressure on the urethra. ? Transurethral microwave thermotherapy (TUMT). This procedure uses microwaves to create heat. The heat destroys and removes a small amount of prostate tissue. ? Transurethral needle ablation (TUNA). This procedure uses radio frequencies to destroy and remove a small amount of prostate tissue. ? Interstitial laser coagulation (ILC). This procedure uses a laser to destroy and remove a small amount of prostate tissue. ? Transurethral electrovaporization (TUVP). This procedure uses electrodes to destroy and remove a small amount of prostate tissue. ? Prostatic urethral lift. This procedure inserts an implant to push the lobes of the prostate away from the urethra. Follow these instructions at home: ? Take [id number] and prescription medicines only as told by your health care provider. ? Monitor your symptoms for any changes. Contact your health care provider with any changes. ? Avoid drinking large amounts of liquid before going to bed or out in public. ? Avoid or reduce how much caffeine or alcohol you drink. ? Give yourself time when you urinate. ? Keep all follow-up visits. This is important. Contact a health care provider if: ? You have unexplained back pain. ? Your symptoms do not get better with treatment. ? You develop side effects from the medicine (more content not included)... Normal [facility] Screenson 11-05-2022 Screens [id number]:[address] [facility] Urology Office/Clinic Noteon 11-05-2022 Urology Office/Clinic Note Chief Complaint 6m Testosterone & PSA HPI Staff 6m Testosterone/PSA Pt is also S/P Circumcision done 09/30/22. DX: BPH, Hypogonadism, Phimosis, Urgency *Oxybutynin 5mg QD & Tamsulosin 0.4mg QD therapy. As well as pt gets Testosterone 400mg IM Injections q4wks. PSA done 10/20/22- 0.44 Testosterone 321 (250-927) CMP & CBC done 10/28/22 IPSS 4 Stronger stream since procedure. Not as often. No more straining. Denies pain/burning and blood in urine. Believes injections are helping with energy. No urinary concerns at this time. History of Present Illness Tests reviewed: reviewed UA, PSA, testosterone, path. I have reviewed the previous health record information and history for this patient from Dr. Stevenson. I have reviewed and verified the staff HPI to be accurate for this encounter. There have been no associated fever, chills, flank pain, or blood in the urine. Denies any urinary infections since last encounter. Review of Systems PHQ Score Initial Depression Screen Score: 0 ROS - Provider Constitutional: denies weight loss, denies hot flashes. Eyes: denies eye problems. Gastrointestinal: denies nausea, denies vomiting. Cardiovascular: denies chest pain or angina. Integumentary: no dryness Musculoskeletal: denies musculoskeletal symptoms. ENMT: denies otolaryngeal symptoms. Respiratory: no shortness of breath. Heme/Lymph: denies easy bleeding tendency, denies easy bruising tendency. Psychiatric: no confusion, no anxiety. Genitourinary: See HPI. Physical Exam Vitals & Measurements HR: 68(Peripheral) RR: 16 BP: 130/78 HT: 78 in HT: 198 cm WT: 150 kg WT: 330 lb BMI: 38.26 General Appearance: alert, no distress, well nourished, well developed male. Genitourinary: normal scrotum, normal testes, normal urethra, normal epididymis, normal vas deferens/spermatic cord. Flank Pain: none. Bladder: nonpalpable. Assessment/Plan 1. Elevated PSA (R97.20: Elevated prostate specific antigen [PSA]) PSA: 01/11/22 - 0.22 05/05/22 - 0.11 10/20/22 - 0.44 Although PSA remains overall low for pt's age, it did quadruple within 6 mos interval. Will cont to monitor. -6 mos PSA. 2. BPH with urinary obstruction (N40.1: Benign prostatic hyperplasia with lower urinary tract symptoms) UA today negative for blood and infection. IPSS 4. Taking Tamsulosin 0.4 mg QD. No urinary complaints. 3. Hypogonadism (E23.7: Disorder of pituitary gland, unspecified) Testosterone: 01/11/22 - 144 05/05/22 - 323 10/20/22 - 321. 10/28/22 - HGB 17.7. HCT 50.2. Receiving Testosterone 400 mg IM Injections q4wks. Feels improvement in energy with injections. T level on low normal range. Pt satisfied with sx control with this level. Will maintain current dosage. States he has been unable to donate blood due to hx of Hep B though recent blood work has been neg. Follow up 6 mos T level or sooner if needed. Pt understands and agrees with plan. -Cont nurse visit q4wks for T IM 400 mg. 4. Phimosis (N47.1: Phimosis) S/P Circumcision 09/30/22 - Path showed balanitis xerotica obliterans, foreskin. Stronger stream since procedure. Not as often. No more straining. Educated pt on strong link of phimosis and diabetes. PE: healing well. looks good. 5. Urinary urgency (R39.15: Urgency of urination) Taking Oxybutynin 5 mg QD. Follow-up With When Contact Information Hudson STEVENSON MD, URL [facility] [address], [place] [address]- Additional Instructions: 6 mos PSA, T level Patient Education Benign Prostatic Hyperplasia I, Bertha Winter, personally scribed for Dr. Stevenson on 11/05/2022 10:54:14. . Documentation recorded by the scribe, Bertha Winter, accurately reflects the services(s) I performed and decisions made by me. Authenticated by Dr. Stevenson on 11/05/2022 10:55:38. 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 Medications aspirin 81 mg oral tablet, Oral, Daily glipiZIDE, 10 mg, Oral, Daily Jardiance 25 mg oral tablet, Oral, qAM latanoprost Opth 0.005% Richelle losartan 100 mg Tab oxybutynin 5 mg ER Tab, 5 mg= 1 tab(s), Oral, Daily, 3 refills pioglitazone 45 mg Tab pravastatin 40 mg Tab Simbrinza, Eye-Both, BID tamsulosin 0.4 mg Cap, 0.4 mg= 1 cap(s), Oral, Daily, 3 refills testosterone cypionate 200 mg/mL IM Richelle, 400 mg, IntraMuscular, q4wk, 2 refills Allergies No Known Allergies Social (more content not included)... Normal [facility] Comment on above: Result Comment: Electronically Signed By : Hudson STEVENSON MD\.br\Date and Time Signed: 11/05/22 10:55 EDT\.br\Electronically Co-Signed By: Bertha Winter\.br\Date and Time Co-Signed: 11/05/22 10:54 EDT CBC W/AUTO DIFFon 10-29-2022 ABS NEUTROPHILS 4.64 K/uL Normal 1.50-7.50 [facility] Basophils (Bld) [#/Vol] 0.04 10*3/uL Normal 0.00-0.20 [facility] Basophils/100 WBC (Bld) 0.6 % Normal [facility] Eosinophils (Bld) [#/Vol] 0.33 10*3/uL Normal 0.00-0.50 [facility] Eosinophils/100 WBC (Bld) 4.8 % Normal [facility] Erythrocyte distribution width (RBC) [Ratio] 13.6 % Normal 11.5-15.0 [facility] Hematocrit (Bld) [Volume fraction] 50.2 % Normal 40.0-51.0 [facility] Hemoglobin (Bld) [Mass/Vol] 17.7 g/dL High 13.5-17.0 [facility] Lymphocytes (Bld) [#/Vol] 0.97 10*3/uL Low 1.00-4.00 [facility] Lymphocytes/100 WBC (Bld) 14.1 % Normal [facility] MCH (RBC) [Entitic mass] 33.6 pg High 25.0-33.0 [facility] MCHC (RBC) [Mass/Vol] 35.3 g/dL Normal 31.0-36.0 [facility] MCV (RBC) [Entitic vol] 95.3 fL Normal 80.0-99.0 [facility] Monocytes (Bld) [#/Vol] 0.88 10*3/uL Normal 0.20-1.00 [facility] Monocytes/100 WBC (Bld) 12.8 % Normal [facility] Neutrophils/100 WBC (Bld) 67.4 % Normal [facility] Platelet mean volume (Bld) [Entitic vol] 12.7 fL Normal 9.3-13.0 [facility] Comment on above: Result Comment: [facility] [employer] [address] [place] [address] CLIA No. [id number] CAP Accreditation No. [id number] Gyroscopic Instrument Mechanic: Shaunna Dee M.D. Platelets (Bld) [#/Vol] 105 10*3/uL Low 130-400 [facility] RBC (Bld) [#/Vol] 5.27 10*6/uL Normal 4.50-6.10 [facility] WBC (Bld) [#/Vol] 6.9 10*3/uL Normal 3.5-11.0 [facility] COMPREHENSIVE METABOLIC PANE L WITH GFRon 10-29-2022 Albumin [Mass/Vol] 4.5 g/dL Normal 3.5-5.2 [facility] ALK PHOS 95 U/L Normal 40-125 [facility] ALT [Catalytic activity/Vol] 25 U/L Normal 5-50 [facility] Anion gap [Moles/Vol] 9.0 mmol/L Normal 7.0-16.0 [facility] AST-SGOT 26 U/L Normal 9-50 [facility] Bilirubin.direct [Mass/Vol] 0.6 mg/dL Normal <=1.2 [facility] Calcium [Mass/Vol] 9.4 mg/dL Normal 8.5-10.5 [facility] Chloride [Moles/Vol] 107 mmol/L Normal 95-107 [facility] CO2 [Moles/Vol] 24 mmol/L Normal 19-31 [facility] Creatinine [Mass/Vol] 0.74 mg/dL Low 0.80-1.40 [facility] GFR/1.73 sq M.predicted among non-blacks MDRD (S/P/Bld) [Vol rate/Area] 97 mL/min/{1.73_m2} Normal >60 [facility] Glucose [Mass/Vol] 110 mg/dL High 70-99 [facility] Potassium [Moles/Vol] 4.6 mmol/L Normal 3.5-5.4 [facility] Protein [Mass/Vol] 7.1 g/dL Normal 6.1-8.3 [facility] Sodium [Moles/Vol] 140 mmol/L Normal 133-146 [facility] Urea nitrogen [Mass/Vol] 16 mg/dL Normal 8-23 [facility] Lab Reportson 10-21-2022 Lab Reports [id number] .00CD:[address] [facility] Ambulatory Visit Summaryon 0 10-05-2022 Ambulatory Visit Summary JUAN MIGUEL JENNINGS :1950 Visit Date:10/05/2022 Ambulatory Visit Instructions Your Care Team Attending Physician - KERI NOLASCO, Hudson Ordoñez Primary Care Physician - DAKOTA NOLASCO, JORDAN Brown This Is Your Medications List aspirin (aspirin 81 mg oral tablet) brimonidine-brinzolam gail ophthalmic (Simbrinza) empagliflozin (Jardiance 25 mg oral tablet) glipiZIDE latanoprost ophthalmic (latanoprost Opth 0.005% Richelle) losartan (losartan 100 mg Tab) oxybutynin (oxybutynin 5 mg ER Tab) pioglitazone (pioglitazone 45 mg Tab) pravastatin (pravastatin 40 mg Tab) tamsulosin (tamsulosin 0.4 mg Cap) testosterone (testosterone cypionate 200 mg/mL IM Richelle) testosterone (testosterone cypionate 200 mg/mL intramuscular solution) Procedures Performed foot surgery (05/23/2019), BACK SURGERY, RECTAL CANCER SURGERY, RIGHT VEIN REMOVED FROM LEG, Stent placement. What to do next Scheduled Follow-Up Appointments Tuesday 9:45 AM EDT With: KERI NOLASCO, Hudson Ordoñez Where: [facility] Pathology Noteon 10-05-2022 Pathology Note [id number] .00CD:127 [facility] Operative Reporton Operative Report [id number] .00CD:127 [facility] Consultation Noteon 10-01-19 Consultation Note [id number] .00CD:[address] [facility] POINT OF CARE GLUCOSEon 09-05 Glucose [Mass/Vol] 112 mg/dL Critically high 74-[address] [facility] Comment on above: Performed By: #### POCGLUC #### [facility] [address] [address] [address] Patria Sanders Formson 09-28-2022 Forms [id number] .00CD:[address] [facility] Formson 09-27-2022 Forms [id number] .00CD:[address] [facility] Formson 09-21-2022 Forms [id number] .00CD:[address] [facility] ECG 12-Leadon 09-20-2022 ECG 12-Lead [id number] .00CD:[address] [facility] Lab Reportson 09-20-2022 Lab Reports [id number] .00CD:[address] [facility] RAD - MISCon 09-20-2022 RAD - MISC [id number] .00CD:[address] [facility] CBC AUTO DIFFon 09-15-2022 BASO # 0.0 103/ul Normal 0.0-0.1 [facility] Comment on above: Performed By: #### CBC #### [facility] [address] [place] [address] Dr. Patria Sanders Basophils/100 WBC (Bld) 0.5 % Normal 0.2-2.0 [facility] Comment on above: Performed By: #### CBC #### [facility] [address] [place] [address] Dr. Patria Sanders EO # 0.3 103/ul Normal 0.0-0.[address] [facility] Comment on above: Performed By: #### CBC #### [facility] [address] [address] [address] Patria Sanders Eosinophils/100 WBC (Bld) 3.2 % Normal 0.9-7.[address] [facility] Comment on above: Performed By: #### CBC #### [facility] [address] [place] [address] Dr. Patria Sanders Erythrocyte distribution width (RBC) [Ratio] 14.5 % Normal 11.0-15.0 [facility] Comment on above: Performed By: #### CBC #### [facility] [address] [address] [address] Patria Sanders Hematocrit (Bld) [Volume fraction] 49.0 % Normal 42.0-54.0 [facility] Comment on above: Performed By: #### CBC #### [facility] [address] [address] [address] Patria Sanders Hemoglobin (Bld) [Mass/Vol] 16.7 g/dL Normal 14.0-18.0 [facility] Comment on above: Performed By: #### CBC #### [facility] [address] [place] [address] Dr. Patria Sanders IG # 0.03 10e3/ul Normal 0.00-0.03 [facility] Comment on above: Performed By: #### CBC #### [facility] [address] [place] [address] Dr. Patria Sanders IG % 0.4 % Normal 0.0-0.5 [facility] Comment on above: Performed By: #### CBC #### [facility] [address] [place] [address] Dr. Patria Sanders LYMPH # 1.1 103/ul Critically low 1.2-3.[address] [facility] Comment on above: Performed By: #### CBC #### [facility] [address] [place] [address] Dr. Patria Sanders Lymphocytes/100 WBC (Bld) 14.5 % Critically low 20.5-60.0 [facility] Comment on above: Performed By: #### CBC #### [facility] [address] [place] [address] Dr. Patria Sanders MANUAL DIFF REQ NO Normal [facility] Comment on above: Performed By: #### CBC #### [facility] [address] [place] [address] Dr. Patria Sanders MCH (RBC) [Entitic mass] 32.6 pg Normal 25.9-34.0 [facility] Comment on above: Performed By: #### CBC #### [facility] [address] [place] [address] Dr. Patria Sanders MCHC (RBC) [Mass/Vol] 34.1 g/dL Normal 29.9-35.[address] [facility] Comment on above: Performed By: #### CBC #### [facility] [address] [place] [address] Dr. Patria Sanders MCV (RBC) [Entitic vol] 95.5 fL Critically high 80.0-94.0 [facility] Comment on above: Performed By: #### CBC #### [facility] [address] [place] [address] Dr. Patria Sanders MONO # 0.8 103/ul Normal 0.3-0.[address] [facility] Comment on above: Performed By: #### CBC #### [facility] [address] [place] [address] Dr. Patria Sanders Monocytes/100 WBC (Bld) 9.6 % Normal 1.7-12.0 [facility] Comment on above: Performed By: #### CBC #### [facility] [address] [place] [address] Dr. Patria Sanders NEUT # 5.6 103/ul Normal 1.4-6.[address] [facility] Comment on above: Performed By: #### CBC #### [facility] [address] [place] [address] Dr. Patria Sanders Neutrophils/100 WBC (Bld) 71.8 % Normal 43.0-75.[address] [facility] Comment on above: Performed By: #### CBC #### [facility] [address] [address] [address] Patria Sanders Platelet mean volume (Bld) [Entitic vol] 11.6 fL Normal 9.5-13.[address] [facility] Comment on above: Performed By: #### CBC #### [facility] [address] [place] [address] Dr. Patria Sanders PLT 154 103/ul Normal 150-[address] [facility] Comment on above: Performed By: #### CBC #### [facility] [address] [place] [address] Dr. Patria Sanders RBC 5.13 106/ul Normal 4.70-6.10 [facility] Comment on above: Performed By: #### CBC #### [facility] [address] [place] [address] Dr. Patria Sanders WBC 7.8 103/ul Normal 4.0-11.0 [facility] Comment on above: Performed By: #### CBC #### [facility] [address] [place] [address] Dr. Patria Sanders PROF CHEM 8 (BAS METB)on Anion gap [Moles/Vol] 11.4 mmol/L Normal [facility] Comment on above: Performed By: #### BMP #### [facility] [address] [place] [address] Dr. Patria Sanders Calcium [Mass/Vol] 9.1 mg/dL Normal 8.5-10.1 [facility] Comment on above: Performed By: #### BMP #### [facility] [address] [place] [address] Dr. Patria Sanders Chloride [Moles/Vol] 104 mmol/L Normal 98-107 [facility] Comment on above: Performed By: #### BMP #### [facility] [address] [place] [address] Dr. Patria Sanders CO2 [Moles/Vol] 28.7 mmol/L Normal 21.0-32.0 [facility] Comment on above: Performed By: #### BMP #### [facility] [address] [place] [address] Dr. Patria Sanders Creatinine [Mass/Vol] 0.80 mg/dL Normal 0.70-1.[address] [facility] Comment on above: Performed By: #### BMP #### [facility] [address] [place] [address] Dr. Patria Sanders EGFR-AF GEORGIAN >60 Normal >=60 [facility] Comment on above: Performed By: #### BMP #### [facility] [address] [place] [address] Dr. Patria Sanders EGFR-NON AF GEORGIAN >60 Normal >=[address] [facility] Comment on above: Performed By: #### BMP #### [facility] [address] [address] [address] Patria Sanders Glucose [Mass/Vol] 101 mg/dL Normal 74-[address] [facility] Comment on above: Performed By: #### BMP #### [facility] [address] [address] [address] Patria Sanders Potassium [Moles/Vol] 4.1 mmol/L Normal 3.5-5.1 [facility] Comment on above: Performed By: #### BMP #### [facility] [address] [address] [address] Patria Sanders Sodium [Moles/Vol] 140 mmol/L Normal 136-145 [facility] Comment on above: Performed By: #### BMP #### [facility] [address] [place] [address] Dr. Patria Sanders Urea nitrogen [Mass/Vol] 11.0 mg/dL Normal 7.0-18.0 [facility] Comment on above: Performed By: #### BMP #### [facility] [address] [place] [address] Dr. Patria Sanders Urea nitrogen/Creatin ine [Mass ratio] 13.8 mg/mg Normal [facility] Comment on above: Performed By: #### BMP #### [facility] [address] [place] [address] Dr. Patria Sanders PROTIMEon 09-15-2022 INR Coag (PPP) [Relative time] 1.02 {INR} Normal [facility] Comment on above: Performed By: #### PTT, PT #### [facility] [address] [place] [address] Dr. Patria Sanders INR GUIDELINES SEE BELOW Normal [facility] Comment on above: Result Comment: DESIRED INR: 2.0 - 3.0 C ONDITIONS NOT LISTED BELOW 2.5 - 3.5 FOR PROSTHETIC HEART VALVE REPLACEMENT 2.5 - 3.5 RECURRENT THROMBOSIS Performed By: #### P TT, PT #### [facility] [address] [place] [address] Dr. Patria Sanders PT Coag (PPP) [Time] 10.8 s Normal 9.0-11.6 [facility] Comment on above: Performed By: #### PTT, PT #### [facility] [address] [place], [place] [address] Dr. Patria Sanders PTTon 09-15-2022 aPTT Coag (Bld) [Time] 32.0 s Normal 22.3-36.2 [facility] Comment on above: Performed By: #### PTT, PT #### [facility] [address] [place], [place] [address] Dr. Patria Sanders Ambulatory Visit Summaryon 0 09-06-2022 Ambulatory Visit Summary JUAN MIGUEL JENNINGS :1950 Visit Date:09/06/2022 Ambulatory Visit Instructions Your Diagnosis Hypogonadism Your Care Team Attending Physician - KERI NOLASCO, Hudson Ordoñez Primary Care Physician - DAKOTA NOLASCO, JORDAN Brown This Is Your Medications List aspirin (aspirin 81 mg oral tablet) brimonidine-brinzolam gail ophthalmic (Simbrinza) empagliflozin (Jardiance 25 mg oral tablet) glipiZIDE latanoprost ophthalmic (latanoprost Opth 0.005% Richelle) losartan (losartan 100 mg Tab) oxybutynin (oxybutynin 5 mg ER Tab) pioglitazone (pioglitazone 45 mg Tab) pravastatin (pravastatin 40 mg Tab) tamsulosin (tamsulosin 0.4 mg Cap) testosterone (testosterone cypionate 200 mg/mL IM Richelle) testosterone (testosterone cypionate 200 mg/mL intramuscular solution) Procedures Performed foot surgery (05/23/2019), BACK SURGERY, RECTAL CANCER SURGERY, RIGHT VEIN REMOVED FROM LEG, Stent placement. What to do next Scheduled Follow-Up Appointments Tuesday 9:00 AM EDT With: Where: [facility] Invalid Interpretation Code [address] [place] [address] [place] [address]- \.br\ Tuesday 9:45 AM EDT \.br\ With: KERI NOLASCO, Hudson Ordoñez\.br\ Where: [facility] Consent for Procedure/Surger yon 09-06-2022 Consent for Procedure/Surger y [id number]#1 .00CD:127 [facility] Ambulatory Visit Summaryon 0 06-18-2022 Ambulatory Visit Summary JUAN MIGUEL JENNINGS :1950 Visit Date:06/18/2022 Ambulatory Visit Instructions Your Diagnosis BPH with urinary obstruction Hypogonadism Phimosis Urinary urgency Tests Performed Urnls Dip Stick Auto w/o Microscopy POC [address]4635 Your Care Team Attending Physician - KERI NOLASCO, Hudson Ordoñez Primary Care Physician - DAKOTA NOLASCO, JORDAN Brown This Is Your Medications List oxybutynin (oxybutynin 5 mg ER Tab) tamsulosin (tamsulosin 0.4 mg Cap) testosterone (testosterone cypionate 200 mg/mL intramuscular solution) Contact prescribing physician if questions or concerns aspirin (aspirin 81 mg oral tablet) brimonidine-brinzolam gail ophthalmic (Simbrinza) empagliflozin (Jardiance 25 mg oral tablet) glipiZIDE latanoprost ophthalmic (latanoprost Opth 0.005% Richelle) losartan (losartan 100 mg Tab) pioglitazone (pioglitazone 45 mg Tab) pravastatin (pravastatin 40 mg Tab) Procedures Performed foot surgery (05/23/2019), BACK SURGERY, RECTAL CANCER SURGERY, RIGHT VEIN REMOVED FROM LEG, Stent placement. Discharge Vitals Heart Rate (Peripheral) 80 Respiratory Rate 16 Blood Pressure 132/82 Height 198 cm Height 78 in Weight 164 kg Weight 360.8 lb BMI 41.83 What to do next Scheduled Follow-Up Appointments Tuesday 9:00 AM EDT With: Where: [facility] [address] [place] [address]- \.br\ You Need to Schedule the Following Appointments\.br\ Follow Up with KERI NOLASCO, Hudson Ordoñez, URL When: \.br\ Where:\.br\ Formerly named [facility]\.br\ [place] [address]-\.br\ Medications\.br\ What How Much When Instructions\.br\ New tamsulosin (tamsulosin 0.4 mg Cap) 1 Capsules By Mouth Every day Refills: 3 Pickup at [facility]/pharmacy #[id number]\.br\ Unchanged oxybutynin (oxybutynin 5 mg ER Tab) 1 Tablets By Mouth Every day\.br\ Unchanged testosterone (testosterone cypionate 200 mg/ mL intramuscular solution) 2 Milliliter Intramuscular Every 4 weeks 400mg once a month \.br\ Unchanged aspirin (aspirin 81 mg oral tablet) By Mouth Every day Contact prescribing physician if questions or concerns \.br\ Unchanged brimonidine-brinzola mide ophthalmic (Simbrinza) Both eyes 2 times a day Contact prescribing physician if questions or concerns \.br\ Unchanged empagliflozin (Jardiance 25 mg oral tablet) By Mouth Once a day (in the morning) Contact prescribing physician if questions or concerns \.br\ Unchanged glipiZIDE 10 Milligram By Mouth Every day Contact prescribing physician if questions or concerns \.br\ Unchanged latanoprost ophthalmic (latanoprost Opth 0.005% Richelle) Contact prescribing physician if questions or concerns \.br\ Unchanged losartan (losartan 100 mg Tab) Contact prescribing physician if questions or concerns \.br\ Unchanged pioglitazone (pioglitazone 45 mg Tab) Contact prescribing physician if questions or concerns \.br\ Unchanged pravastatin (pravastatin 40 mg Tab) Contact prescribing physician if questions or concerns \.br\ Pharmacy Information\.br\ [facility]/pharmacy #[id number]: [address] [place] [address], [place] [phone]\.br\ Test Results\.br\ Urnls Dip Stick Auto w/o Microscopy POC 52511 (06/18/2022)\.br\ Bilirubin Urine Dipstick - 1+ Small\.br\ Blood Urine Dipstick - Negative\.br\ Glucose Urine Dipstick - Negative\.br\ Ketones Urine Dipstick - Trace - 5 mg/dl\.br\ Leukocytes Urine Dipstick - Negative\.br\ Nitrite Urine Dipstick - Negative\.br\ Protein Urine Dipstick - 2+ (100 mg/dl)\.br\ Specific Viola Urine Dipstick - >=1.030\.br\ Urine Appearance Urine Dipstick - Clear\.br\ Urine Color Urine Dipstick - Yellow\.br\ Urobilinogen Urine Dipstick - Normal 0.2-1 EU/dl\.br\ pH Urine Dipstick - 6\.br\ Allergies\.br\ No Known Allergies\.br\ Problems\.br\ Ongoing - Any problem that you are currently receiving treatment for.\.br\ BPH with urinary obstruction\.br\ Coronary artery disease\.br\ Diabetes\.br\ History of colon cancer\.br\ 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 The prostate is a walnut-sized gland that is involved in the production of semen. It is located in front of the rectum and below the bladder. The bladder stores urine and the urethra is the tube that carries the urine out of the body. The prostate may get bigger as a man gets older.\.br\ An enlarged prostate can press on the urethra. This can make it harder to pass urine. The build-up of urine in the bladder can cause infection. Back pressure and infection may progress to bladder damage and kidney (renal) failure.\.br\ What are the causes?\.br\ This condition is part of a normal aging process. However, not all men develop problems from this condition. If the prostate enlarges away from the urethra, urine flow will not be blocked. If it enlarges toward the urethra and compresses it, there will be problems passing urine.\.br\ What increases the risk?\.br\ This condition is more likely to develop in men over the age of 50 years.\.br\ What are the signs or symptoms?\.br\ Symptoms of this condition include:\.br\ ? \.br\ Getting up often during the night to urinate.\.br\ ? \.br\ Needing to urinate frequently during the day.\.br\ ? \.br\ Difficulty starting urine flow.\.br\ ? \.br\ Decrease in size and strength of your urine stream.\.br\ ? \.br\ Leaking (dribbling) after urinating.\.br\ ? \.br\ Inability to pass urine. This needs immediate treatment.\.br\ ? \.br\ Inability to completely empty your bladder.\.br\ ? \.br\ Pain when you pass urine. This is more common if there is also an infection.\.br\ ? \.br\ Urinary tract infection (UTI).\.br\ How is this diagnosed?\.br\ This condition is diagnosed based on your medical history, a physical exam, and your symptoms. Tests will also be done, such as:\.br\ ? \.br\ A post-void bladder scan. This measures any amount of urine that may remain in your bladder after you finish urinating.\.br\ ? \.br\ A digital rectal exam. In a rectal exam, your health care provider checks your prostate by putting a lubricated, gloved finger into your rectum to feel the back of your prostate gland. This exam detects the size of your gland and any abnormal lumps or growths.\.br\ ? \.br\ An exam of your urine (urinalysis).\.br\ ? \.br\ A prostate specific antigen (PSA) screening. This is a blood test used to screen for prostate cancer.\.br\ ? \.br\ An ultrasound. This test uses sound waves to electronically produce a picture of your prostate gland.\.br\ Your health care provider may refer you to a specialist in kidney and prostate diseases (urologist).\.br\ How is this treated?\.br\ Once symptoms begin, your health care provider will monitor your condition (active surveillance or watchful waiting). Treatment for this condition will depend on the severity of your condition. Treatment may include:\.br\ ? \.br\ Observation and yearly exams. This may be the only treatment needed if your condition and symptoms are mild.\.br\ ? \.br\ Medicines to relieve your symptoms, including:\.br\ ? \.br\ Medicines to shrink the prostate.\.br\ ? \.br\ Medicines to relax the muscle of the prostate.\.br\ ? \.br\ Surgery in severe cases. Surgery may include:\.br\ ? \.br\ Prostatectomy. In this procedure, the prostate tissue is removed completely through an open incision or with a laparoscope or robotics.\.br\ ? \.br\ Transurethral resection of the prostate (TURP). In this procedure, a tool is inserted through the opening at the tip of the penis (urethra). It is used to cut away tissue of the inner core of the prostate. The pieces are removed through the same opening of the penis. This removes the blockage.\.br\ ? \.br\ Transurethral incision (TUIP). In this procedure, small cuts are made in the prostate. This lessens the prostate's pressure on the urethra.\.br\ ? \.br\ Transurethral microwave thermotherapy (TUMT). This procedure uses microwaves to create heat. The heat destroys and removes a small amount of prostate tissue.\.br\ ? \.br\ Transurethral needle ablation (TUNA). This procedure uses radio frequencies to destroy and remove a small amount of prostate tissue.\.br\ ? \.br\ Interstitial laser coagulation (ILC). This procedure uses a laser to destroy and remove a small amount of prostate tissue.\.br\ ? \.br\ Transurethral electrovaporization (TUVP). This proce [facility] Patient Educationon 06-18-19 Patient Education Urology Benign Prostatic Hyperplasia Benign prostatic hyperplasia (BPH) is an enlarged prostate gland that is caused by the normal aging process and not by cancer. The prostate is a walnut-sized gland that is involved in the production of semen. It is located in front of the rectum and below the bladder. The bladder stores urine and the urethra is the tube that carries the urine out of the body. The prostate may get bigger as a man gets older. An enlarged prostate can press on the urethra. This can make it harder to pass urine. The build-up of urine in the bladder can cause infection. Back pressure and infection may progress to bladder damage and kidney (renal) failure. What are the causes? This condition is part of a normal aging process. However, not all men develop problems from this condition. If the prostate enlarges away from the urethra, urine flow will not be blocked. If it enlarges toward the urethra and compresses it, there will be problems passing urine. What increases the risk? This condition is more likely to develop in men over the age of 50 years. What are the signs or symptoms? Symptoms of this condition include: ? Getting up often during the night to urinate. ? Needing to urinate frequently during the day. ? Difficulty starting urine flow. ? Decrease in size and strength of your urine stream. ? Leaking (dribbling) after urinating. ? Inability to pass urine. This needs immediate treatment. ? Inability to completely empty your bladder. ? Pain when you pass urine. This is more common if there is also an infection. ? Urinary tract infection (UTI). How is this diagnosed? This condition is diagnosed based on your medical history, a physical exam, and your symptoms. Tests will also be done, such as: ? A post-void bladder scan. This measures any amount of urine that may remain in your bladder after you finish urinating. ? A digital rectal exam. In a rectal exam, your health care provider checks your prostate by putting a lubricated, gloved finger into your rectum to feel the back of your prostate gland. This exam detects the size of your gland and any abnormal lumps or growths. ? An exam of your urine (urinalysis). ? A prostate specific antigen (PSA) screening. This is a blood test used to screen for prostate cancer. ? An ultrasound. This test uses sound waves to electronically produce a picture of your prostate gland. Your health care provider may refer you to a specialist in kidney and prostate diseases (urologist). How is this treated? Once symptoms begin, your health care provider will monitor your condition (active surveillance or watchful waiting). Treatment for this condition will depend on the severity of your condition. Treatment may include: ? Observation and yearly exams. This may be the only treatment needed if your condition and symptoms are mild. ? Medicines to relieve your symptoms, including: ? Medicines to shrink the prostate. ? Medicines to relax the muscle of the prostate. ? Surgery in severe cases. Surgery may include: ? Prostatectomy. In this procedure, the prostate tissue is removed completely through an open incision or with a laparoscope or robotics. ? Transurethral resection of the prostate (TURP). In this procedure, a tool is inserted through the opening at the tip of the penis (urethra). It is used to cut away tissue of the inner core of the prostate. The pieces are removed through the same opening of the penis. This removes the blockage. ? Transurethral incision (TUIP). In this procedure, small cuts are made in the prostate. This lessens the prostate's pressure on the urethra. ? Transurethral microwave thermotherapy (TUMT). This procedure uses microwaves to create heat. The heat destroys and removes a small amount of prostate tissue. ? Transurethral needle ablation (TUNA). This procedure uses radio frequencies to destroy and remove a small amount of prostate tissue. ? Interstitial laser coagulation (ILC). This procedure uses a laser to destroy and remove a small amount of prostate tissue. ? Transurethral electrovaporization (TUVP). This procedure uses electrodes to destroy and remove a small amount of prostate tissue. ? Prostatic urethral lift. This procedure inserts an implant to push the lobes of the prostate away from the urethra. Follow these instructions at home: ? Take [id number] and prescription medicines only as told by your health care provider. ? Monitor your symptoms for any changes. Contact your health care provider with any changes. ? Avoid drinking large amounts of liquid before going to bed or out in public. ? Avoid or reduce how much caffeine or alcohol you drink. ? Give yourself time when you urinate. ? Keep all follow-up visits as told by your health care provider. This is important. Contact a health care provider if: ? You have unexplained back pain. ? Your symptoms do not get better with treatment. ? You d (more content not included)... Normal [facility] Urology Office/Clinic Noteon 06-18-2022 Urology Office/Clinic Note Chief Complaint nocturia and frequency HPI Staff Pt has started having to get up at night to void recently and he was able to sleep through the night before with his CPAP. He has also noticed that first thing in the morning he will void and then he has to do it again in 15 minutes but after that throughout the day he voids every couple of hours. Previous dx of hypogonadism, BPH with urinary obstruction, phimosis and urgency. Pt takes Oxybutynin ER 5mg qd. Dysuria: no Incomplete bladder emptying: no Hematuria: no Frequency: no Urgency: no Nocturia: 1x Stream: states that it is good Leaking: no Post void dripping: yes Wearing pads/ Depends: no Urge incontinence: no Stress incontinence: no Incontinence without Sensory Awareness: no Abdominal pain: no Flank pain: no Sexual complaints: no History of Present Illness Tests reviewed: reviewed UA. I have reviewed the previous health record information and history for this patient from Dr. Stevenson. I have reviewed and verified the staff HPI to be accurate for this encounter. There have been no associated fever, chills, flank pain, or blood in the urine. Denies any urinary infections since last encounter. Review of Systems PHQ Score Initial Depression Screen Score: 0 ROS - Provider Constitutional: denies weight loss, denies hot flashes. Eyes: denies eye problems. Gastrointestinal: denies nausea, denies vomiting. Cardiovascular: denies chest pain or angina. Integumentary: no dryness Musculoskeletal: denies musculoskeletal symptoms. ENMT: denies otolaryngeal symptoms. Respiratory: no shortness of breath. Heme/Lymph: denies easy bleeding tendency, denies easy bruising tendency. Psychiatric: no confusion, no anxiety. Genitourinary: denies dysuria, denies hematuria, denies discharge, denies urinary frequency, denies urinary hesitancy, denies nocturia, denies incontinence, denies genital sores, denies decreased libido, and denies erectile dysfunction. Physical Exam Vitals & Measurements HR: 80(Peripheral) RR: 16 BP: 132/82 HT: 78 in HT: 198 cm WT: 164 kg WT: 360.8 lb BMI: 41.83 General Appearance: alert, no distress, well nourished, well developed male. Genitourinary: normal scrotum, normal testes, normal urethra, normal epididymis, normal vas deferens/spermatic cord. Flank Pain: none. Bladder: nonpalpable. Assessment/Plan 1. BPH with urinary obstruction (N40.1: Benign prostatic hyperplasia with lower urinary tract symptoms) Current PSA 0.1 drawn 05/05/22. Previously 0.22 done 01/11/22. UA today negative for blood and infection. Experiencing fair stream, shares he recently started getting up during the night to void. Reports his main complaint is urgency and incomplete emptying in a.m.. Patient not currently taking any prostate medications. Will start Flomax 0.4mg daily, advised to take in the morning at first. Discussed the medication side effects, and the patient will monitor closely for these, as well as for symptom improvement. If severe side effects occur, the medication should be stopped and the office notified. Follow up as scheduled, 11/15/22 w/ PSA and testosterone level. All questions/concerns were discussed. Pt. to call the office if heencounters any issues prior. Pt. acknowledges understanding. 2. Hypogonadism (E23.7: Disorder of pituitary gland, unspecified) Current testosterone 323 drawn 05/05/22. Prior level 144 done 01/11/22. Testosterone in good range. Pt to continue with Testosterone 400mg 2mL q4wks. Last injection was 06/14/22. Will continue to monitor levels. 3. Phimosis (N47.1: Phimosis) Pt was c/o torn foreskin with erection at prior visit. Physical exam done 05/17/22 confirms. Discussed possible surgical intervention: dorsal slit. unable to do circumcision due to foreskin anatomy. Discussed relation to diabetes. Pt will continue to monitor. 4. Urinary urgency (R39.15: Urgency of urination) Pt continues taking Oxybutynin 5mg ER QD. Denies any leakage associated with urge. Pt. reports he experiences urgency mainly in the morning. Follow-up With When Contact Information KERI NOLASCO, Hudson Ordoñez, [address] [place] [address]- Additional Instructions: As scheduled w PSA & testosterone Patient Education Benign Prostatic Hyperplasia I, Jeannie Faustin, personally scribed for Dr. Stevenson on 06/18/2022 09:21:58. . Documentation recorded by the scribe, Jeannie Faustin, accurately reflects the services(s) I performed and decisions made by me. Authenticated by Dr. Stevenson on 06/18/2022 09:28:06. Problem List/Past Medical History Ongoing BPH with urinary obstruction Coronary artery disease Diabetes History of colon cancer Hx of fci use of blood thinners Hypertension Hypogonadism Hypogonadism male Male impotence Myocardial infarction Nocturia Open-angle glaucoma Phimosis Sleep apnea Urinary frequen (more content not included)... Normal [facility] Comment on above: Result Comment: Electronically Signed By : Hudson STEVENSON MD\.br\Date and Time Signed: 06/18/22 09:28 EST\.br\Electronically Co-Signed By: Jeannie Faustin\.br\Date and Time Co-Signed: 06/18/22 09:22 EST Ambulatory Visit Summaryon 0 06-14-2022 Ambulatory Visit Summary JUAN MIGUEL JENNINGS :1950 Visit Date:06/14/2022 Ambulatory Visit Instructions Your Diagnosis Hypogonadism Your Care Team Attending Physician - Hudson STEVENSON MD Primary Care Physician - DAKOTA NOLASCO, JORDAN Brown This Is Your Medications List aspirin (aspirin 81 mg oral tablet) brimonidine-brinzolam gail ophthalmic (Simbrinza) empagliflozin (Jardiance 25 mg oral tablet) glipiZIDE latanoprost ophthalmic (latanoprost Opth 0.005% Richelle) losartan (losartan 100 mg Tab) oxybutynin (oxybutynin 5 mg ER Tab) pioglitazone (pioglitazone 45 mg Tab) pravastatin (pravastatin 40 mg Tab) testosterone (testosterone cypionate 200 mg/mL intramuscular solution) Procedures Performed foot surgery (05/23/2019), BACK SURGERY, RECTAL CANCER SURGERY, RIGHT VEIN REMOVED FROM LEG, Stent placement. What to do next Scheduled Follow-Up Appointments Tuesday 8:45 AM EST With: Hudson STEVENSON MD Where: [facility] Invalid Interpretation Code [address] [place] [address] [place] [address]- \.br\ Tuesday 8:45 AM EDT \.br\ With: Hudson STEVNESON MD\.br\ Where: [facility] Covid-19 PCR (CVDTBH)on 01-04 SARS-CoV-2 (COVID-19) RNA NANCY+probe Ql (Unsp spec) Not detected Normal NOT DETECTED [facility] Comment on above: Result Comment: This test is not yet oscar roved or cleared by the [place] FDA. When there are no FDA-approved or cleared tests available, and other criteria are met, FDA can make tests available under an emergency access mechanism called an Emergency Use Authorization (EUA). The EUA for this test is supported by the [place] of Health and Human Service's (HHS's) declaration that circumstances exist to justify the emergency use of in vitro diagnostics for the detection and/or diagnosis of the virus that causes COVID-19. This EUA will remain in effect (meaning this test can be used) for the duration of the COVID-19 declaration justifying emergency of IVDs, unless it is terminated or revoked by FDA (after which the test may no longer be used). When diagnostic testing is negative, the possibility of a false negative should be considered in the context of a patient's recent exposures and the presence of clinical signs and symptoms consistent with SARS-CoV-2. Performed By: #### [facility] #### [facility] [address] [place], [place] [address] Dr. Patria Sanders Hemoglobin A1Con 09-24-2021 EAG 128.37 Normal [facility] Comment on above: Performed By: #### A1C #### [facility] [address] [place], [place] [id number] HbA1c (Bld) [Mass fraction] 6.1 % High 4.0-6.0 [facility] Comment on above: Performed By: #### A1C #### [facility] [address] [place], [place] [id number] Testosteroneon 05-11-2021 TESTOS 314.70 ng/dL Normal 193.00-740.00 [facility] Comment on above: Performed By: #### TEST #### [facility] [address] [place], [place] [id number] XR femur BIon 05-06-2021 XR femur BI [facility] [place] [address] XRay Report Signed Patient: Juan Miguel Jennings MR#: [id number] 25 : 1950 Acct:[id number] Age/Sex: 71 / M ADM Date: 05/06/21 Loc: ICXD Room: Type: [facility] Attending Dr: Maxwell Staley PA-C Ordering Provider: Maxwell Staley PA-C Date of Service: 05/06/21 XR/XR chest 2V*: Z01.818 ([id number]) XR/XR femur BI: Z01.818 ([id number]) XR/XR tibia/fibula BI: . Copies to: Maxwell Staley PA-C CLINICAL DATA: Preoperative clearance and planning for left knee replacement. PA AND LATERAL CHEST: COMPARISON: None There is slight hyperinflation. There are some interstitial changes as well as potential scarring and/or atelectasis. There are no priors to assess chronicity. There is no focal parenchymal consolidation, effusion or pneumothorax. The cardiac, hilar and mediastinal silhouettes are within normal limits. Degenerative changes are present at the spine. XR/XR chest 2V* IMPRESSION: SUSPECTED OBSTRUCTIVE LUNG DISEASE. MILD BILATERAL PARENCHYMAL CHANGES, UNCERTAIN CHRONICITY WITHOUT PRIORS. BILATERAL FEMUR - 1 view COMPARISON: None Standing AP view of the femurs were obtained. The greater trochanter on the left was not included. There is a right knee prosthesis. The hardware appears intact and in appropriate position. There are no acute fracture or dislocation. The hip joint spaces are symmetric. There is no prominent hypertrophy at the hips. There is narrowing of the medial tibiofemoral compartment on the left. There is minor marginal spurring and suspected subtle chondrocalcinosis at the menisci. There is atherosclerotic plaque involving vessels at the medial thighs. IMPRESSION: POSTOPERATIVE CHANGES OF THE RIGHT KNEE. DEGENERATIVE CHANGE AT THE LEFT KNEE. NO ACUTE FINDINGS. BILATERAL TIB-FIB - 1 view COMPARISON: None AP standing view of the tibia and fibula were obtained. Patient has a right knee replacement. There is degenerative change at the left knee, as discussed above. No acute fracture or dislocation is identified. The soft tissues are within normal limits. IMPRESSION: NO ACUTE FINDINGS. Impression dictated by: Rosanne Echeverria M.D.05/06/2021 3:12 PM Dictation Location: [place] [address] Transcribed By: [facility] 05/06/21 1512 Dictated By: Rosanne Echeverria MD 05/06/21 1506 Signed By: 05/06/21 1512 [facility] Progress Noteon 10-12-2017 HIM IP Note OR Teletype Operator [facility] Vital Signs Date Time Vital Sign Value Performing Clinician Facility 06-20-2023 10:33-0500 Blood Pressure Location Hudsonpeter STEVENSON [facility] 06-20-2023 10:33-0500 Diastolic blood pressure 86 mm[Hg] Hudson STEVENSON [facility] 06-20-2023 10:33-0500 Heart rate 70 /min Hudson STEVENSON [facility] 06-20-2023 10:33-0500 Respiratory rate 16 /min Hudson STEVENSON [facility] 06-20-2023 10:33-0500 Systolic blood pressure 139 mm[Hg] Hudson STEVENSON [facility] 11-05-2022 10:12-0400 Blood Pressure Location Hudsonpeter STEVENSON [facility] 11-05-2022 10:12-0400 Diastolic blood pressure 78 mm[Hg] Hudson STEVENSON [facility] 11-05-2022 10:12-0400 Heart rate 68 /min Hudsonpeter STEVENSON [facility] 11-05-2022 10:12-0400 Respiratory rate 16 /min Hudsonpeter STEVENSON [facility] 11-05-2022 10:12-0400 Systolic blood pressure 130 mm[Hg] Hudson STEVENSON [facility] 11-03-2022 14:34-0400 Body temperature 97.5 [degF] Mthz Schedule [facility] 11-03-2022 14:34-0400 Diastolic blood pressure 77 mm[Hg] Mthz Schedule [facility] 11-03-2022 14:34-0400 Heart rate 72 /min [facility] 11-03-2022 14:34-0400 Respiratory rate 18 /min Mthz Schedule [facility] 11-03-2022 14:34-0400 Systolic blood pressure 140 mm[Hg] Mthz Schedule [facility] 06-18-2022 08:55-0500 Blood Pressure Location Hudson STEVENSON [facility] 06-18-2022 08:55-0500 Diastolic blood pressure 82 mm[Hg] Hudsonpeter STEVENSON [facility] 06-18-2022 08:55-0500 Heart rate 80 /min Hudsonpeter STEVENSON [facility] 06-18-2022 08:55-0500 Respiratory rate 16 /min Hudson STEVENSON [facility] 06-18-2022 08:55-0500 Systolic blood pressure 132 mm[Hg] Hudsonpeter STEVENSON [facility] 05-17-2022 09:43-0500 Blood Pressure Location Hudson STEVENSON [facility] 05-17-2022 09:43-0500 Diastolic blood pressure 92 mm[Hg] Hudson STEVENSON [facility] 05-17-2022 09:43-0500 Heart rate 63 /min Hudson STEVENSON [facility] 05-17-2022 09:43-0500 Systolic blood pressure 143 mm[Hg] Hudson STEVENSON [facility] 02-01-2022 09:48-0400 Blood Pressure Location Hudson STEVENSON [facility] 02-01-2022 09:48-0400 Diastolic blood pressure 66 mm[Hg] Hudson STEVENSON [facility] 02-01-2022 09:48-0400 Heart rate 84 /min Hudson STEVENSON [facility] 02-01-2022 09:48-0400 Respiratory rate 16 /min Hudson STEVENSON [facility] 02-01-2022 09:48-0400 Systolic blood pressure 98 mm[Hg] Hudson STEVENSON [facility] 01-28-2022 13:48-0400 Diastolic blood pressure 76 mm[Hg] Mth[facility] Lab Schedule [facility] 01-28-2022 13:48-0400 Heart rate 56 /min [facility] Lab Schedule [facility] 01-28-2022 13:48-0400 Respiratory rate 18 /min [facility] Lab Schedule [facility] 01-28-2022 13:48-0400 Systolic blood pressure 135 mm[Hg] M[facility]z Lab Schedule [facility] 01-28-2022 13:25-0400 Body temperature 97.39 [degF] [facility] Lab Schedule [facility] 10-22-2020 12:25-0400 Body temperature 97.81 [degF] Mthz Schedule [employer] Work Phone: 10-22-2020 12:25-0400 Heart rate 67 /min Mth[facility] Schedule [employer] Work Phone: 07-27-2019 08:03-0500 Body Temperature 96.3 [degF] [facility] Schedule [facility] 07-27-2019 08:03-0500 BP Diastolic 80 mm[Hg] Mthz Schedule [facility] [place] , [place] 07-27-2019 08:03-0500 BP Systolic 129 mm[Hg] Mthz Schedule [facility] [place] , [place] 07-27-2019 08:03-0500 Pulse (Heart Rate) 63 /min Mth[facility] Schedule [facility] [place], [place] 07-27-2019 08:03-0500 Respiratory Rate 20 /min [facility] Schedule [facility] [place] 03-13-2019 08:02-0400 Body Temperature 96.69 [degF] [facility] Schedule [facility] [place] 03-13-2019 08:02-0400 BP Diastolic 83 mm[Hg] Mthz Schedule [facility] [place] , [place] 03-13-2019 08:02-0400 BP Systolic 162 mm[Hg] Mthz Schedule [facility] , [place] 03-13-2019 08:02-0400 Pulse (Heart Rate) 74 /min [facility] [place] 03-13-2019 08:02-0400 Respiratory Rate 20 /min [facility] Schedule [facility] [place] 01-12-2019 08:03-0400 Body Temperature 96.91 [degF] [facility]th[facility] Schedule [facility] [place] 01-12-2019 08:03-0400 BP Diastolic 87 mm[Hg] Mthz Schedule [facility] [place] , [place] 01-12-2019 08:03-0400 BP Systolic 152 mm[Hg] Mth[facility] Schedule [facility] [place] 01-12-2019 08:03-0400 Pulse (Heart Rate) 63 /min [facility] Schedule [facility] [place] 01-12-2019 08:03-0400 Respiratory Rate 20 /[facility] [employer] [place] , [place] Encounters Encounter Date Encounter Type Care Provider Facility Start: 06-20-2023 ambulatory Hudson Nicki ty:[facility] Start: 06-20-2023 End: 06-20-2023 Patient encounter procedure Hudson STEVENSON [facility] Start: 05-17-2023 End: 05-17-2023 ambulatory JORDAN DUNCAN Not Available Start: 05-12-2023 End: 05-13-2023 ambulatory JORDAN DUNCAN [facility] Start: 05-09-2023 End: 05-10-2023 ambulatory Hudson STEVENSON Facility:[facility] [place] Start: 05-09-2023 End: 05-09-2023 Patient encounter procedure Hudson STEVENSON [facility] Start: 04-19-2023 End: 04-19-2023 ambulatory JORDAN DUNCAN Not Available Start: 04-08-2023 End: 04-08-2023 ambulatory [facility] Start: 04-04-2023 End: 04-05-2023 ambulatory Hudson STEVENSON Facility:[facility] [place] Start: 04-04-2023 End: 04-04-2023 Patient encounter procedure Hudson STEVENSON [facility] Start: 03-07-2023 End: 03-08-2023 ambulatory Hudson STEVENSON Facility:[facility] [place] Start: 02-08-2023 End: 02-09-2023 ambulatory JORDAN DUNCAN Facility:[facility] [place] Start: 02-08-2023 End: 02-08-2023 Patient encounter [facility] Start: 01-31-2023 ambulatory Hudson STEVENSON Facili ty:[facility] [place] Start: 01-03-2023 End: 01-04-2023 ambulatory Hudson STEVENSON Facility:[facility] Start: 01-03-2023 End: 01-03-2023 Patient encounter procedure Hudson STEVENSON [facility] Start: 12-03-2022 End: 12-04-2022 ambulatory Hudson STEVENSON Facility:[facility] [place] Start: 12-03-2022 End: 12-03-2022 Patient encounter procedure Hudson STEVENSON [facility] Start: 11-05-2022 End: 11-06-2022 ambulatory Hudson STEVENSON Facility:[facility] [place] Start: 11-05-2022 End: 11-05-2022 Patient encounter procedure Hudson STEVENSON [facility] Start: 11-03-2022 End: 11-04-2022 ambulatory JUAN BOLIVARKADE [facility] Start: 11-03-2022 End: 11-03-2022 Subsequent hospital visit by physician [facility] On[facility] Room 7 Schedule [facility] MED ONC Comment on above: Polycythemia (Primar y Dx) Start: 10-29-2022 ambulatory Hudson STEVENSON Facili ty:[facility] Start: 10-25-2022 End: 10-26-2022 ambulatory ARNOLD PEOPLES Facility:[facility] Start: 10-05-2022 End: 10-06-[address] JORDAN DUNCAN . Facility:[facility] Start: 10-05-2022 End: 10-06-2022 ambulatory Hudson STEVENSON Facility:[facility] [place] Start: 10-05-2022 End: 10-05-2022 Patient encounter procedure Hudson STEVENSON [facility] Start: 09-30-2022 End: 10-01-[address] HUDSON STEVENSON . Facility:[facility] Start: 09-27-2022 End: 09-28-2022 ambulatory ARNOLD PEOPLES Facility:[facility] Start: 09-20-2022 End: 09-21-2022 ambulatory ENEDINA HARGROVE Facility:[facility] Start: 09-20-2022 Encounter for preprocedural cardiovascular examination DR HUDSON STEVENSON . [facility] Start: 09-20-2022 Encounter for preprocedural laboratory examination DR HUDSON STEVENSON . [facility] Start: 09-20-2022 Encounter for preprocedural respiratory examination DR HUDSON STEVENSON . [facility] Start: 09-15-2022 End: 09-16-[address] HUDSON STEVENSON . Facility:[facility] Start: 09-15-2022 End: 09-16-2022 Encounter for preprocedural laboratory examination DR HUDSON STEVENSON . Facility:[facility] Start: 09-06-2022 End: 09-07-2022 ambulatory Hudson STEVENSON Facility:[facility] [place] Start: 09-06-2022 End: 09-06-2022 Patient encounter procedure Hudson STEVENSON [facility] Start: 06-18-2022 End: 06-19-2022 ambulatory Hudson STEVENSON Facility:[facility] [place] Start: 06-18-2022 End: 06-18-2022 Patient encounter procedure Hudson STEVENSON [facility] Start: 06-14-2022 End: 06-15-2022 ambulatory Hudson STEVENSON Facility:[facility] Start: 05-20-2022 End: 05-21-2022 ambulatory ENEDINA Schultz [facility] Facility:[facility] Start: 05-17-2022 End: 05-17-2022 Patient encounter procedure Hudson [facility]EVENSON [facility] Start: 04-21-2022 End: 04-22-2022 ambulatory ENEDINA Schultz [facility] Facility:[facility] Start: 04-21-2022 End: 04-21-2022 Patient encounter procedure [facility] Schaefer [facility] Start: 04-09-2022 End: 04-10-2022 ambulatory ENEDINA Schultz [facility] Facility:[facility] Start: 03-31-2022 End: 03-31-2022 Patient encounter procedure Mandy Schaefer [facility] [place] Start: 03-22-2022 End: 03-23-2022 ambulatory [facility] Facility:[facility] Start: 03-03-2022 End: 03-03-2022 Patient encounter procedure Mandy Schaefer [facility] [place] [employer] Start: 02-01-2022 End: 02-01-2022 Patient encounter procedure Hudson STEVENSON [facility] Start: 01-28-2022 End: 01-28-2022 Subsequent hospital visit by physician [facility] On[facility] Lab Schedule [facility] MED [facility] Comment on above: Polycythemia (Primar y Dx) Start: 01-18-2022 End: 01-18-[address] JORDAN DUNCAN . Facility: Start: 01-06-2022 End: 01-07-2022 ambulatory [facility] Facility:[facility] Start: 12-21-2021 End: 12-21-2021 Patient encounter procedure Hudson STEVENSON [facility] [employer] Start: 11-23-2021 End: 11-23-2021 Patient encounter procedure Hudson STEVENSON [facility] [place] [employer] Start: 10-26-2021 End: 10-26-2021 Patient encounter procedure Hudson STEVENSON [facility] [place] Start: 09-28-2021 End: 09-28-2021 Patient encounter procedure Hudson STEVENSON [facility] [facility] [employer] Start: 08-31-2021 End: 08-31-2021 Patient encounter procedure Hudson STEVENSON [facility] Start: 10-22-2020 End: 10-22-2020 Subsequent hospital visit by physician [facility] Med Onc Room 9 Schedule [facility] Comment on above: Polycythemia (Primar y Dx) Start: 07-27-2019 End: 07-27-2019 Subsequent hospital visit by physician [facility] Med Onc Room 9 Schedule [facility] MED ONC Comment on above: Polycythemia (Primar y Dx) Start: 03-13-2019 End: 03-13-2019 Subsequent hospital visit by physician [facility] Med Onc Room 9 Schedule [facility] MED ONC Comment on above: Polycythemia (Primar y Dx) Start: 01-12-2019 End: 01-12-2019 Subsequent hospital visit by physician [facility] Med Onc Room 9 Schedule [facility] Start: 02-16-2018 End: 02-17-2018 Patient encounter DEFAULT PHYSICIAN Facility:[facility] Procedures Date Procedure Procedure Detail Performing Clinician Start: 09-30-2022 Circumcision Hudson JENSEN Start: 05-23-2019 foot surgery Hudson JENSEN Start: 05-13-2014 History of placement of stent for coronary artery disease S/P JORY - LCX & RCA ([id number]. kabour) [facility] Schedule BACK SURGERY Hudson STEVENSON Placement of stent Hudson OSEGUERA RECTAL CANCER SURGERY Agustin STEVENSON RIGHT VEIN REMOVED F ROM LEG Hudson STEVENSON Plan of Treatment Date Care Activity Detail Author Start: 10-29-2023 GFR test (Diabetes, CKD 3-4, OR last GFR 15-59) GFR test (Diabetes, CKD 3-4, OR last GFR 15-59) [facility] Start: 10-26-2023 End: 10-26-2023 Patient encounter procedure 10/26/2023 Office Visit Oncology Juan Liu MD [address] [place] [address] [facility] Part [facility] Start: 10-20-2022 End: 10-20-2022 Patient encounter procedure 10/20/2022 Office Visit Oncology Juan Liu MD [address] [facility] [place] [address] [facility] Part [facility] Start: 09-24-2022 Hemoglobin A1c measurement A1C test (Diabetic or Prediabetic) [facility] Start: 02-04-2022 Influenza vaccination Flu vaccine (#1) [facility] Start: 11-11-2021 Urine screening for protein Diabetic microalbuminuria test [facility] Start: 10-21-2021 End: 10-21-2021 Patient encounter procedure 10/21/2021 Office Visit Oncology Juan Liu MD [address] [place] [address] [facility] Part [facility] Start: 10-16-2021 COVID-19 Vaccine (4 - Booster for Pfizer series) COVID-19 Vaccine (4 - Booster for Pfizer series) [facility] Start: 10-14-2021 Lipid panel Lipids [facility] Start: 10-24-2019 End: 10-24-2019 Office Visit [facility] Start: 07-31-2019 End: 07-31-2019 Appointment 07/31/2019 Appointment Infusion Therapy [facility] Start: 04-30-2019 End: 04-30-2019 Appointment 04/30/2019 Appointment Infusion Therapy [facility] Start: 02-04-2019 Influenza vaccination Flu vaccine (#1) [place] Start: 11-26-2018 Annual Wellness Visit (AWV) Annual Wellness Visit (AWV) [facility] Start: 08-17-2017 Creatinine measurement Creatinine monitoring [facility] [employer] Work Phone: Start: 08-17-2017 Creatinine monitoring Creatinine monitoring [place], [place] Start: 08-17-2017 Potassium monitoring Potassium monitoring [place], [place] Start: 08-04-2017 A1C test (Diabetic or Prediabetic) A1C test (Diabetic or Prediabetic) [place] Start: 08-04-2017 Hemoglobin A1c measurement A1C test (Diabetic or Prediabetic) [facility] Start: 02-10-2017 Abdominal aortic aneurysm screening AAA screen [facility] Start: 02-10-2017 Pneumococcal 65+ years Vaccine (1 of 2 - PCV13) Pneumococcal 65+ years Vaccine (1 of 2 - PCV13) [place] Start: 01-29-2017 Shingles Vaccine (2 of 3) Shingles Vaccine (2 of 3) [facility] Start: 02-10-2015 Annual Wellness Visit (AWV) Annual Wellness Visit (AWV) [place] Start: 02-10-2002 Colon cancer screen colonoscopy Colon cancer screen colonoscopy [place] Start: 02-10-2002 Screening for malignant neoplasm of colon Colon cancer screen colonoscopy [facility] Work Phone: Start: 02-10-2002 Shingles Vaccine (1 of 2) Shingles Vaccine (1 of 2) [place], [place] Start: 02-10-1997 Screening for malignant neoplasm of colon [facility] Start: 02-10-1971 DTaP/Tdap/Td vaccine (1 - Tdap) DTaP/Tdap/Td vaccine (1 - Tdap) [facility] Start: 02-10-1971 Hepatitis B vaccine (1 of 3 - Risk 3-dose series) Hepatitis B vaccine (1 of 3 - Risk 3-dose series) [place] Start: 02-10-1970 Diabetic microalbuminuria test Diabetic microalbuminuria test [place] Start: 02-10-1970 Diabetic retinal exam Diabetic retinal exam [facility] Start: 02-10-1970 Glaucoma screening Diabetic retinal exam [facility] Start: 02-10-1970 Hepatitis C screening Hepatitis C screen [facility] Start: 02-10-1970 Urine screening for protein Diabetic Alb to Cr ratio (uACR) test [facility] Start: 1964 Depression Screen Depression Screen [facility] Start: 02-10-1963 DTaP/Tdap/Td vaccine (1 - Tdap) DTaP/Tdap/Td vaccine (1 - Tdap) [place] Start: 02-10-1962 [object Object] Diabetic foot exam [place] Start: 02-10-1962 Diabetic foot examination Diabetic foot exam [facility] [employer] Start: 02-10-1962 Diabetic retinal exam Diabetic retinal exam [place], [place] Start: 02-10-1962 Lipid panel [facility] Start: 02-10-1962 Lipid screen Lipid screen [place], [place] Start: 1952 Annual Wellness Visit (AWV) Annual Wellness Visit (AWV) [facility] Start: 1952 Hepatitis C screen Hepatitis C screen [place], [place] Start: 1952 Hepatitis C screening Hepatitis C screen [facility] Work Phone: Immunizations Immunization Date Immunization Notes Care Provider Shania durham 04-16-2022 influenza virus vacc ine, unspecified formulation Hudson STEVENSON [facility] 03-23-2022 SARS-CoV-2 (COVID-19 ) [id number] Hudson KERI [facility] 06-18-2021 SARS-CoV-2 (COVID-19 ) mRNA BNT-162b2 vax Hudson KERI [facility] 05-06-2021 influenza virus vacc ine, unspecified formulation Hudson STEVENSON [facility] 05-06-2021 SARS-CoV-2 (COVID-19 ) Ad26 vaccine, recombinant Hudson STEVENSON [facility] 08-28-2020 SARS-CoV-2 (COVID-19 ) mRNA BNT-162b2 vax Hudson KERI [facility] 08-08-2020 SARS-CoV-2 (COVID-19 ) mRNA BNT-162b2 vax Hudson STEVENSON [facility] Comment on above: Result Comment: 2022: [id number] 08-04-2020 SARS-CoV-2 (COVID-19 ) Ad26 vaccine, recombinant Hudson STEVENSON [facility] 03-22-2020 influenza virus vacc ine, unspecified formulation Hudson STEVENSON [facility] 03-06-2019 pneumococcal conjuga te vaccine, 13 valent Hudson STEVENSON [facility] 03-05-2019 influenza virus vacc ine, unspecified formulation Hudson STEVENSON [facility] 03-05-2019 pneumococcal polysaccharide vaccine, 23 valent Hudson STEVENSON [facility] 03-03-2018 influenza virus vacc ine, unspecified formulation Hudson STEVENSON [facility] 03-03-2018 pneumococcal conjuga te vaccine, 13 valent Hudson STEVENSON [facility] 04-06-2017 influenza virus vacc ine, unspecified formulation uHdson STEVENSON [facility] 12-04-2016 pneumococcal polysaccharide vaccine, 23 valent Hudson STEVENSON [facility] 12-04-2016 zoster vaccine, live Hudson STEVENSON [facility] 03-06-2016 Influenza Vaccine, unspecified formulation Mthz Schedule [facility] 03-06-2016 influenza, unspecifi ed formulation Hudson STEVENSON [facility] 01-23-2016 influenza virus vacc ine, unspecified formulation Hudson STEVENSON [facility] 06-06-2015 pneumococcal polysaccharide vaccine, 23 valent Hudson STEVENSON [facility] 03-23-2014 influenza virus vacc ine, unspecified formulation Hudson STEVENSON [facility] 04-06-2013 influenza virus vacc ine, unspecified formulation Hudson STEVENSON [facility] 04-06-2013 zoster vaccine, live Hudson STEVENSON [facility] Payers Date Payer Category Payer Medicare [id number] 1957 Medicare [id number] 1959 Private Health Insurance [facility] [id number] 1952 Unknown [id number] 2.16.84 0.1.824092.3.579.2.593 1952 Unknown [id number] 2.16.84 0.1.333540.3.579.2.593 1952 Unknown [id number] 2.16.84 0.1.718136.3.579.2.593 1952 Unknown [id number] 2.16.84 0.1.208513.3.579.2.593 1952 Unknown [id number] 2.16.84 0.1.863082.3.579.2.593 1952 Unknown [id number] 2.16.84 0.1.286352.3.579.2.593 1952 Unknown [id number] 2.16.84 0.1.005600.3.579.2.593 1952 Unknown [id number] 2.16.84 0.1.004915.3.579.2.593 1952 Unknown [id number] 2.16.84 0.1.321634.3.579.2.593 1952 Unknown [id number] 2.16.84 0.1.621467.3.579.2.593 1952 Unknown [id number] 2.16.84 0.1.171353.3.579.2.593 1952 Unknown [id number] 2.16.84 0.1.256884.3.579.2.593 1952 Unknown [id number] 2.16.8 40.1.434165.3.579.2.173 1952 Unknown [id number] 2.16.8 40.1.308212.3.579.2.173 1952 Unknown [id number] 2.16.840 .1.813799.3.579.2.1259 1952 Unknown [id number] 2.16.840. 1.725215.3.579.2.1259 1952 Unknown [id number] 2.16.8 40.1.570442.3.579.2.727 1952 Unknown [id number] 2.16.8 40.1.956320.3.579.2.727 1952 Unknown [id number] 2.16.8 40.1.337265.3.579.2.727 1952 Unknown [id number] 2.16.8 40.1.417046.3.579.2.727 1952 Unknown [id number] 2.16.8 40.1.980067.3.579.2.727 1952 Unknown [id number] 2.16.8 40.1.984726.3.579.2.727 1952 Unknown [id number] 2.16.8 40.1.719748.3.579.2.727 1952 Unknown [id number] 2.16.8 40.1.168115.3.579.2.727 1952 Unknown [id number] 2.16.8 40.1.672766.3.579.2.727 1952 Unknown [id number] 2.16.8 40.1.992614.3.579.2.727 1952 Unknown [id number] 2.16.8 40.1.859747.3.579.2.727 1952 Unknown [id number] 2.16.8 40.1.784724.3.579.2.727 1952 Unknown [id number] 2.16.8 40.1.861754.3.579.2.727 1952 Unknown [id number] 2.16.8 40.1.926226.3.579.2.727 1952 Unknown [id number] 2.16.8 40.1.061318.3.579.2.727 Medicare [id number] Unknown Social History Date Type Detail Facility Start: 10-18-2018 End: 11-05-2022 Tobacco smoking status NHIS Former smoker [place], [place] End: 08-31-1999 History of tobacco use Current [place]oker [place] Start: 01-23-2014 End: 10-18-2018 Cigarettes smoked current (pack per day) - Reported [place] Start: 10-18-2018 Alcohol intake No [place], [place] Start: 01-23-2014 Tobacco Comment quit smoking in 1999 [place], [place] Start: 1950 Sex Assigned At Not on file [place] Start: 10-18-2018 End: 10-21-2021 Alcohol intake Current non-drinker of alcohol (finding) [place] Start: 01-23-2014 End: 10-22-2020 Tobacco use and exposure Never used [facility] Start: 01-18-2022 End: 01-28-2022 Exposure to SARS-CoV-2 (event) Not sure [facility] End: 08-31-1999 History of tobacco use Cigarette Smoker [facility] Work Phone: Functional Status Date Assessment Result Facility 06-20-2023 Functional Status N/A [facility] 11-05-2022 Functional Status N/A [facility] 06-18-2022 Functional Status N/A [facility] 05-17-2022 Functional Status N/A [facility] 02-01-2022 Functional Status N/A [facility] Clinical Notes 10-22-2020 to 06-20-2023 Torie Lopez RN - 11/03/2022 2:30 PM EDTTorie Lopez RN - 10/22/2020 11:30 AM EDT Note Date & Type Note Facility 06-20-2023 Hospital Discharge instructions Patient Education 06/20/2023 11:15:38 Hypogonadism, Male Hypogonadism, Male Male hypogonadism is a condition of having a level of testosterone that is lower than normal. Testosterone is a chemical, or hormone, that is made mainly in the testicles. In boys, testosterone is responsible for the development of male characteristics during puberty. These include: Making the penis bigger. Growing and building the muscles. Growing facial hair. Deepening the voice. In adult men, testosterone is responsible for maintaining: An interest in sex and the ability to have sex. Muscle mass. Sperm production. Red blood cell production. Bone strength. Testosterone also gives men energy and a sense of well-being. Testosterone normally decreases as men age and the testicles make less testosterone. Testosterone levels can vary from man to man. Not all men will have signs and symptoms of low testosterone. Weight, alcohol use, medicines, and certain medical conditions can affect a man's testosterone level. What are the causes? This condition is caused by: A natural decrease in testosterone that occurs as a man grows older. This is the main cause of this condition. Use of medicines, such as antidepressants, steroids, and opioids. Diseases and conditions that affect the testicles or the making of testosterone. These include: ?Injury or damage to the testicles from trauma, cancer, cancer treatment, or infection. ?Diabetes. ?Sleep apnea. ?Genetic conditions that men are born with. ?Disease of the pituitary gland. This gland is in the brain. It produces hormones. ?Obesity. ?Metabolic syndrome. This is a group of diseases that affect blood pressure, blood sugar, cholesterol, and belly fat. ?HIV or AIDS. ?Alcohol abuse. ?Kidney failure. ?Other long-term or chronic diseases. What are the signs or symptoms? Common symptoms of this condition include: Loss of interest in sex (low sex drive). Inability to have or maintain an erection (erectile dysfunction). Feeling tired (fatigue). Mood changes, like irritability or depression. Loss of muscle and body hair. Infertility. Large breasts. Weight gain (obesity). How is this diagnosed? Your health care provider can diagnose hypogonadism based on: Your signs and symptoms. A physical exam to check your testosterone levels. This includes blood tests. Testosterone levels can change throughout the day. Levels are highest in the morning. You may need to have repeat blood tests before getting a diagnosis of hypogonadism. Depending on your medical history and test results, your health care provider may also do other tests to find the cause of low testosterone. How is this treated? This condition is treated with testosterone replacement therapy. Testosterone can be given by: Injection or through pellets inserted under the skin. Gels or patches placed on the skin or in the mouth. Testosterone therapy is not for everyone. It has risks and side effects. Your health care provider will consider your medical history, your risk for prostate cancer, your age, and your symptoms before putting you on testosterone replacement therapy. Follow these instructions at home: Take [id number] and prescription medicines only as told by your health care provider. Eat foods that are high in fiber, such as beans, whole grains, and fresh fruits and vegetables. Limit foods that are high in fat and processed sugars, such as fried or sweet foods. If you drink alcohol: ?Limit how much you have to 0 2 drinks a day. ?Know how much alcohol is in your drink. In the [place] one drink equals one 12 oz bottle of beer (355 mL), one 5 oz glass of wine (148 mL), or one 1 oz glass of hard liquor (44 mL). Return to your normal activities as told by your health care provider. Ask your health care provider what activities are safe for you. Keep all follow-up visits. This is important. Contact a health care provider if: You have any of the signs or symptoms of low testosterone. You have any side effects from testosterone therapy. Summary Male hypogonadism is a condition of having a level of testosterone that is lower than normal. The natural drop in testosterone production that occurs with age is the most common cause of this condition. Low testosterone can also be caused by many diseases and conditions that affect the testicles and the making of testosterone. This condition is treated with testosterone replacement therapy. There are risks and side effects of testosterone therapy. Your health care provider will consider your age, medical history, symptoms, and risks for prostate cancer before putting you on testosterone therapy. This information is not intended to replace advice given to you by your health care provider. Make sure you discuss any questions you have with your health care provider. Document Revised: 01/22/2021 Document Reviewed: 01/22/2021 [employer] Patient Education 2022 Android App Review Source. Follow Up Care 02/08/2023 12:23:35 With:KERI NOLASCO, Hudson Ordoñez, URL Address: [facility] [address] , [place] [phone] When: Unknown Comments:6 mos w/ PSA and T level (pt to also get PSA now) [facility] 04-08-2023 Note [facility] Subjective Juan Miguel Jennings is a 73 y.o. year old male patient being seen for 1 year follow up CAD, hypertension, and hyperlipidemia. He denies chest pain and SOB. Still able to cut wood and load it into his truck without problems. Has not had lipid panel drawn in almost a year. Patient Active Problem List Diagnosis Coronary arteriosclerosis History of myocardial infarction Hyperlipidemia Hypertensive disorder Type 2 diabetes mellitus (CMS/HCC) Acquired hammer deformity of great toe Acquired hammer toes of both feet Acute osteomyelitis of metatarsal bone of right foot (CMS/HCC) Adverse reaction to statin medication Anal cancer (CMS/HCC) Amputation of foot (CMS/HCC) Atherosclerosis of coronary artery without angina pectoris BPH with urinary obstruction Cellulitis and abscess of toe of right foot Chronic constipation Chronic kidney disease, stage 2 (mild) Diabetic peripheral neuropathy (CMS/HCC) Dependence on other enabling machines and devices Decreased testosterone level Chronic pain Diabetic renal disease (CMS/HCC) Difficulty walking Elevated PSA Drug-induced myopathy Fatty liver Former smoker History of colon cancer Testicular hypofunction Hx of fci use of blood thinners Internal derangement of left knee Non-pressure chronic ulcer of other part of unspecified foot with unspecified severity (CMS/HCC) Nocturia Morbid obesity (CMS/HCC) Microalbuminuria Old myocardial infarction Phimosis Glaucoma Status post total left knee replacement Obstructive sleep apnea syndrome S/P drug eluting coronary stent placement S/P cardiac cath 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 I initially saw him in February 2018 as a new patient to establish cardiology care. He used to be a patient of Dr Alicia Santillan. He is a 73 yo man with prior history of CAD, s/p IA and stenting procedures in the past. He had cataract surgery in February 2020 with no issues. He has sleep apnea and has a CPAP machine. He had ulcers in his feet that are now healed. ABIs 03/04/2020 showed normal arterial evaluation of the bilateral lower extremities without hemodynamic impairment at rest. He has history of rectal cancer s/p surgery and chemotherapy and radiation. His blood pressure has been controlled. He has no chest pain. He has no dyspnea on exertion. He has no palpitations. He has no leg swelling. He has no claudication. He is reasonably active with no symptoms. His main issue is neuropathy and balance issues. I had him in the past on pravastatin. This was then shifted to rosuvastatin and he did not tolerate either. He does not do well with statins. At visit of February 2021 I started him on ezetimibe and he could not tolerate that either. Review of Systems Constitutional: Positive for malaise/fatigue. Musculoskeletal: Positive for arthritis, back pain and joint pain. Neurological: Positive for loss of balance. Objective Visit Vitals BP 136/85 (BP Location: Left arm, Patient Position: Sitting) Pulse 67 Ht 1.981 m (6' 6 ) Wt (!) 158 kg (348 lb) SpO2 95% BMI 40.22 kg/m??? Smoking Status Every Day BSA 2.95 m??? Physical Exam Constitutional: Appearance: He is well-developed. He is obese. He is not ill-appearing. HENT: Head: Normocephalic and atraumatic. Nose: Nose normal. Eyes: General: No scleral icterus. Pupils: Pupils are equal, round, and reactive to light. Neck: Thyroid: No thyromegaly. Vascular: No JVD. Cardiovascular: Rate and Rhythm: Normal rate and regular rhythm. Pulses: Radial pulses are 2+ on the right side and 2+ on the left side. Heart sounds: Normal heart sounds. No murmur heard. No friction rub. No gallop. Pulmonary: Effort: Pulmonary effort is normal. No respiratory distress. Breath sounds: Normal breath sounds. No wheezing or rales. Chest: Chest wall: No tenderness. Abdominal: General: Bowel sounds are normal. There is no distension. Palpations: Abdomen is soft. Tenderness: There is no abdominal tenderness. Musculoskeletal: General: No swelling. Cervical back: Neck supple. Skin: General: Skin is warm and dry. Neurological: General: No focal deficit present. Mental Status: He is alert and oriented to person, place, and time. Psychiatric: Mood and Affect: Mood normal. Behavior: Behavior is cooperative. Judgment: Judgment normal. Allergies Allergies Allergen Reactions Clindamycin Glipizide Other Metformin Other Pravastatin Other Rosuvastatin (more content not included)... [facility] 11-05-2022 Hospital Discharge instructions Patient Education 11/05/2022 10:46:57 Benign Prostatic Hyperplasia Benign Prostatic Hyperplasia Benign prostatic hyperplasia (BPH) is an enlarged prostate gland that is caused by the normal aging process. The prostate may get bigger as a man gets older. The condition is not caused by cancer. The prostate is a walnut-sized gland that is involved in the production of semen. It is located in front of the rectum and below the bladder. The bladder stores urine. The urethra carries stored urine out of the body. An enlarged prostate can press on the urethra. This can make it harder to pass urine. The buildup of urine in the bladder can cause infection. Back pressure and infection may progress to bladder damage and kidney (renal) failure. What are the causes? This condition is part of the normal aging process. However, not all men develop problems from this condition. If the prostate enlarges away from the urethra, urine flow will not be blocked. If it enlarges toward the urethra and compresses it, there will be problems passing urine. What increases the risk? This condition is more likely to develop in men older than 50 years. What are the signs or symptoms? Symptoms of this condition include: Getting up often during the night to urinate. Needing to urinate frequently during the day. Difficulty starting urine flow. Decrease in size and strength of your urine stream. Leaking (dribbling) after urinating. Inability to pass urine. This needs immediate treatment. Inability to completely empty your bladder. Pain when you pass urine. This is more common if there is also an infection. Urinary tract infection (UTI). How is this diagnosed? This condition is diagnosed based on your medical history, a physical exam, and your symptoms. Tests will also be done, such as: A post-void bladder scan. This measures any amount of urine that may remain in your bladder after you finish urinating. A digital rectal exam. In a rectal exam, your health care provider checks your prostate by putting a lubricated, gloved finger into your rectum to feel the back of your prostate gland. This exam detects the size of your gland and any abnormal lumps or growths. An exam of your urine (urinalysis). A prostate specific antigen (PSA) screening. This is a blood test used to screen for prostate cancer. An ultrasound. This test uses sound waves to electronically produce a picture of your prostate gland. Your health care provider may refer you to a specialist in kidney and prostate diseases (urologist). How is this treated? Once symptoms begin, your health care provider will monitor your condition (active surveillance or watchful waiting). Treatment for this condition will depend on the severity of your condition. Treatment may include: Observation and yearly exams. This may be the only treatment needed if your condition and symptoms are mild. Medicines to relieve your symptoms, including: ?Medicines to shrink the prostate. ?Medicines to relax the muscle of the prostate. Surgery in severe cases. Surgery may include: ?Prostatectomy. In this procedure, the prostate tissue is removed completely through an open incision or with a laparoscope or robotics. ?Transurethral resection of the prostate (TURP). In this procedure, a tool is inserted through the opening at the tip of the penis (urethra). It is used to cut away tissue of the inner core of the prostate. The pieces are removed through the same opening of the penis. This removes the blockage. ?Transurethral incision (TUIP). In this procedure, small cuts are made in the prostate. This lessens the prostate's pressure on the urethra. ?Transurethral microwave thermotherapy (TUMT). This procedure uses microwaves to create heat. The heat destroys and removes a small amount of prostate tissue. ?Transurethral needle ablation (TUNA). This procedure uses radio frequencies to destroy and remove a small amount of prostate tissue. ?Interstitial laser coagulation (ILC). This procedure uses a laser to destroy and remove a small amount of prostate tissue. ?Transurethral electrovaporization (TUVP). This procedure uses electrodes to destroy and remove a small amount of prostate tissue. ?Prostatic urethral lift. This procedure inserts an implant to push the lobes of the prostate away from the urethra. Follow these instructions at home: Take ytdp-dob-umjccuw and prescription medicines only as told by your health care provider. Monitor your symptoms for any changes. Contact your health care provider with any changes. Avoid drinking large amounts of liquid before going to bed or out in public. Avoid or reduce how much caffeine or alcohol you drink. Give yourself time when you urinate. Keep all follow-up visits. This is important. Contact a health care provider if: You have unexplained back pain. Your symptoms do not get better with treatment. You develop side effects from the medicine you are taking. Your urine becomes very dark or has a bad smell. Your lower abdomen becomes distended and you have trouble passing urine. Get help right away if: You have a fever or chills. You suddenly cannot urinate. You feel light-headed or very dizzy, or you faint. There are large amounts of blood or clots in your urine. Your urinary problems become hard to manage. You develop moderate to severe low back or flank pain. The flank is the side of your body between the ribs and the hip. These symptoms may be an emergency. Get help right away. Call 911. Do not wait to see if the symptoms will go away. Do not drive yourself to the hospital. Summary Benign prostatic hyperplasia (BPH) is an enlarged prostate that is caused by the normal aging process. It is not caused by cancer. An enlarged prostate can press on the urethra. This can make it hard to pass urine. This condition is more likely to develop in men older than 50 years. Get help right away if you suddenly cannot urinate. This information is not intended to replace advice given to you by your health care provider. Make sure you discuss any questions you have with your health care provider. Document Revised: 12/09/2021 Document Reviewed: 12/09/2021 [employer] Patient Education 2022 Android App Review Source. Follow Up Care 05/17/2022 10:46:35 With:KERI NOLASCO, Hudson Ordoñez, URL Address: [facility] [address] , [place] [address]- When: Unknown [facility] 11-03-2022 History of Present illness Narrative Patient arrives ambulating for phlebotomy. Alert and oriented.No complaints 1444 # 16 gauge needle inserted in to left antecubital per drawing kit. Brisk blood return. Tolerated well. Drinking water. 1449 500 ml blood obtained and discarded. Pressure dressing applied. Continues to drink. 1450 BP 133/73 pulse 76 1500 BP 138/75 pulse 70 No complaints. Continues to drink water Patient waiting to see for visit documented in this encounter [facility] Phone: 09-15-2022 Note EXAM: XR CHEST 2 V HISTORY: Pre-surgery evaluation COMPARISON: None. TECHNIQUE: PA and lateral views of the chest. FINDINGS: The cardiomediastinal silhouette is normal. No focal consolidation is identified. There is no pneumothorax. No pleural effusion is noted. The osseous structures are intact. IMPRESSION: No acute cardiopulmonary process. Electronically authenticated by: DARRIUS BOLTON Date: 2022-09-15 12:26 [facility] 06-18-2022 Hospital Discharge instructions Patient Education 06/18/2022 09:17:57 Benign Prostatic Hyperplasia Benign Prostatic Hyperplasia Benign prostatic hyperplasia (BPH) is an enlarged prostate gland that is caused by the normal aging process and not by cancer. The prostate is a walnut-sized gland that is involved in the production of semen. It is located in front of the rectum and below the bladder. The bladder stores urine and the urethra is the tube that carries the urine out of the body. The prostate may get bigger as a man gets older. An enlarged prostate can press on the urethra. This can make it harder to pass urine. The build-up of urine in the bladder can cause infection. Back pressure and infection may progress to bladder damage and kidney (renal) failure. What are the causes? This condition is part of a normal aging process. However, not all men develop problems from this condition. If the prostate enlarges away from the urethra, urine flow will not be blocked. If it enlarges toward the urethra and compresses it, there will be problems passing urine. What increases the risk? This condition is more likely to develop in men over the age of 50 years. What are the signs or symptoms? Symptoms of this condition include: Getting up often during the night to urinate. Needing to urinate frequently during the day. Difficulty starting urine flow. Decrease in size and strength of your urine stream. Leaking (dribbling) after urinating. Inability to pass urine. This needs immediate treatment. Inability to completely empty your bladder. Pain when you pass urine. This is more common if there is also an infection. Urinary tract infection (UTI). How is this diagnosed? This condition is diagnosed based on your medical history, a physical exam, and your symptoms. Tests will also be done, such as: A post-void bladder scan. This measures any amount of urine that may remain in your bladder after you finish urinating. A digital rectal exam. In a rectal exam, your health care provider checks your prostate by putting a lubricated, gloved finger into your rectum to feel the back of your prostate gland. This exam detects the size of your gland and any abnormal lumps or growths. An exam of your urine (urinalysis). A prostate specific antigen (PSA) screening. This is a blood test used to screen for prostate cancer. An ultrasound. This test uses sound waves to electronically produce a picture of your prostate gland. Your health care provider may refer you to a specialist in kidney and prostate diseases (urologist). How is this treated? Once symptoms begin, your health care provider will monitor your condition (active surveillance or watchful waiting). Treatment for this condition will depend on the severity of your condition. Treatment may include: Observation and yearly exams. This may be the only treatment needed if your condition and symptoms are mild. Medicines to relieve your symptoms, including: ?Medicines to shrink the prostate. ?Medicines to relax the muscle of the prostate. Surgery in severe cases. Surgery may include: ?Prostatectomy. In this procedure, the prostate tissue is removed completely through an open incision or with a laparoscope or robotics. ?Transurethral resection of the prostate (TURP). In this procedure, a tool is inserted through the opening at the tip of the penis (urethra). It is used to cut away tissue of the inner core of the prostate. The pieces are removed through the same opening of the penis. This removes the blockage. ?Transurethral incision (TUIP). In this procedure, small cuts are made in the prostate. This lessens the prostate's pressure on the urethra. ?Transurethral microwave thermotherapy (TUMT). This procedure uses microwaves to create heat. The heat destroys and removes a small amount of prostate tissue. ?Transurethral needle ablation (TUNA). This procedure uses radio frequencies to destroy and remove a small amount of prostate tissue. ?Interstitial laser coagulation (ILC). This procedure uses a laser to destroy and remove a small amount of prostate tissue. ?Transurethral electrovaporization (TUVP). This procedure uses electrodes to destroy and remove a small amount of prostate tissue. ?Prostatic urethral lift. This procedure inserts an implant to push the lobes of the prostate away from the urethra. Follow these instructions at home: Take lsxj-xfo-glrjvxv and prescription medicines only as told by your health care provider. Monitor your symptoms for any changes. Contact your health care provider with any changes. Avoid drinking large amounts of liquid before going to bed or out in public. Avoid or reduce how much caffeine or alcohol you drink. Give yourself time when you urinate. Keep all follow-up visits as told by your health care provider. This is important. Contact a health care provider if: You have unexplained back pain. Your symptoms do not get better with treatment. You develop side effects from the medicine you are taking. Your urine becomes very dark or has a bad smell. Your lower abdomen becomes distended and you have trouble passing your urine. Get help right away if: You have a fever or chills. You suddenly cannot urinate. You feel lightheaded, or very dizzy, or you faint. There are large amounts of blood or clots in the urine. Your urinary problems become hard to manage. You develop moderate to severe low back or flank pain. The flank is the side of your body between the ribs and the hip. These symptoms may represent a serious problem that is an emergency. Do not wait to see if the symptoms will go away. Get medical help right away. Call your local emergency services (911 in the [place] Do not drive yourself to the hospital. Summary Benign prostatic hyperplasia (BPH) is an enlarged prostate that is caused by the normal aging process and not by cancer. An enlarged prostate can press on the urethra. This can make it hard to pass urine. This condition is part of a normal aging process and is more likely to develop in men over the age of 50 years. Get help right away if you suddenly cannot urinate. This information is not intended to replace advice given to you by your health care provider. Make sure you discuss any questions you have with your health care provider. Document Released: 05/23/2006 Document Revised: 04/17/2019 Document Reviewed: 06/27/2017 [employer] Patient Education 2020 Android App Review Source. Follow Up Care 06/14/2022 09:33:13 With:KERI NOLASCO, Hudson Ordoñez, URL Address: [address] [place], [place] [id number]- When: Unknown [facility] 05-17-2022 Hospital Discharge instructions Patient Education 05/17/2022 08:18:44 Benign Prostatic Hyperplasia Benign Prostatic Hyperplasia Benign prostatic hyperplasia (BPH) is an enlarged prostate gland that is caused by the normal aging process and not by cancer. The prostate is a walnut-sized gland that is involved in the production of semen. It is located in front of the rectum and below the bladder. The bladder stores urine and the urethra is the tube that carries the urine out of the body. The prostate may get bigger as a man gets older. An enlarged prostate can press on the urethra. This can make it harder to pass urine. The build-up of urine in the bladder can cause infection. Back pressure and infection may progress to bladder damage and kidney (renal) failure. What are the causes? This condition is part of a normal aging process. However, not all men develop problems from this condition. If the prostate enlarges away from the urethra, urine flow will not be blocked. If it enlarges toward the urethra and compresses it, there will be problems passing urine. What increases the risk? This condition is more likely to develop in men over the age of 50 years. What are the signs or symptoms? Symptoms of this condition include: Getting up often during the night to urinate. Needing to urinate frequently during the day. Difficulty starting urine flow. Decrease in size and strength of your urine stream. Leaking (dribbling) after urinating. Inability to pass urine. This needs immediate treatment. Inability to completely empty your bladder. Pain when you pass urine. This is more common if there is also an infection. Urinary tract infection (UTI). How is this diagnosed? This condition is diagnosed based on your medical history, a physical exam, and your symptoms. Tests will also be done, such as: A post-void bladder scan. This measures any amount of urine that may remain in your bladder after you finish urinating. A digital rectal exam. In a rectal exam, your health care provider checks your prostate by putting a lubricated, gloved finger into your rectum to feel the back of your prostate gland. This exam detects the size of your gland and any abnormal lumps or growths. An exam of your urine (urinalysis). A prostate specific antigen (PSA) screening. This is a blood test used to screen for prostate cancer. An ultrasound. This test uses sound waves to electronically produce a picture of your prostate gland. Your health care provider may refer you to a specialist in kidney and prostate diseases (urologist). How is this treated? Once symptoms begin, your health care provider will monitor your condition (active surveillance or watchful waiting). Treatment for this condition will depend on the severity of your condition. Treatment may include: Observation and yearly exams. This may be the only treatment needed if your condition and symptoms are mild. Medicines to relieve your symptoms, including: ?Medicines to shrink the prostate. ?Medicines to relax the muscle of the prostate. Surgery in severe cases. Surgery may include: ?Prostatectomy. In this procedure, the prostate tissue is removed completely through an open incision or with a laparoscope or robotics. ?Transurethral resection of the prostate (TURP). In this procedure, a tool is inserted through the opening at the tip of the penis (urethra). It is used to cut away tissue of the inner core of the prostate. The pieces are removed through the same opening of the penis. This removes the blockage. ?Transurethral incision (TUIP). In this procedure, small cuts are made in the prostate. This lessens the prostate's pressure on the urethra. ?Transurethral microwave thermotherapy (TUMT). This procedure uses microwaves to create heat. The heat destroys and removes a small amount of prostate tissue. ?Transurethral needle ablation (TUNA). This procedure uses radio frequencies to destroy and remove a small amount of prostate tissue. ?Interstitial laser coagulation (ILC). This procedure uses a laser to destroy and remove a small amount of prostate tissue. ?Transurethral electrovaporization (TUVP). This procedure uses electrodes to destroy and remove a small amount of prostate tissue. ?Prostatic urethral lift. This procedure inserts an implant to push the lobes of the prostate away from the urethra. Follow these instructions at home: Take egym-zyh-lybusbz and prescription medicines only as told by your health care provider. Monitor your symptoms for any changes. Contact your health care provider with any changes. Avoid drinking large amounts of liquid before going to bed or out in public. Avoid or reduce how much caffeine or alcohol you drink. Give yourself time when you urinate. Keep all follow-up visits as told by your health care provider. This is important. Contact a health care provider if: You have unexplained back pain. Your symptoms do not get better with treatment. You develop side effects from the medicine you are taking. Your urine becomes very dark or has a bad smell. Your lower abdomen becomes distended and you have trouble passing your urine. Get help right away if: You have a fever or chills. You suddenly cannot urinate. You feel lightheaded, or very dizzy, or you faint. There are large amounts of blood or clots in the urine. Your urinary problems become hard to manage. You develop moderate to severe low back or flank pain. The flank is the side of your body between the ribs and the hip. These symptoms may represent a serious problem that is an emergency. Do not wait to see if the symptoms will go away. Get medical help right away. Call your local emergency services (911 in the [place] Do not drive yourself to the hospital. Summary Benign prostatic hyperplasia (BPH) is an enlarged prostate that is caused by the normal aging process and not by cancer. An enlarged prostate can press on the urethra. This can make it hard to pass urine. This condition is part of a normal aging process and is more likely to develop in men over the age of 50 years. Get help right away if you suddenly cannot urinate. This information is not intended to replace advice given to you by your health care provider. Make sure you discuss any questions you have with your health care provider. Document Released: 05/23/2006 Document Revised: 04/17/2019 Document Reviewed: 06/27/2017 [employer] Patient Education 2020 Android App Review Source. 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 Moderate-marked degenerative changes of the first metatarsophalangeal joint. Multifocal moderate degenerative joint disease. No fracture or appreciable bone lesion. SOFT TISSUES:No visible soft tissue swelling. EFFUSION:None visible. OTHER: Negative. IMPRESSION: 1. No appreciable soft tissue wound or radiopaque foreign body. 2. No findings to suggest osteomyelitis. 3. Stable chronic changes. Electronically authenticated by: BRODY PAYAN Date: 2022-03-23 06:26 [facility] 02-01-2022 Hospital Discharge instructions Patient Education 02/01/2022 10:35:19 Benign Prostatic Hyperplasia Benign Prostatic Hyperplasia Benign prostatic hyperplasia (BPH) is an enlarged prostate gland that is caused by the normal aging process and not by cancer. The prostate is a walnut-sized gland that is involved in the production of semen. It is located in front of the rectum and below the bladder. The bladder stores urine and the urethra is the tube that carries the urine out of the body. The prostate may get bigger as a man gets older. An enlarged prostate can press on the urethra. This can make it harder to pass urine. The build-up of urine in the bladder can cause infection. Back pressure and infection may progress to bladder damage and kidney (renal) failure. What are the causes? This condition is part of a normal aging process. However, not all men develop problems from this condition. If the prostate enlarges away from the urethra, urine flow will not be blocked. If it enlarges toward the urethra and compresses it, there will be problems passing urine. What increases the risk? This condition is more likely to develop in men over the age of 50 years. What are the signs or symptoms? Symptoms of this condition include: Getting up often during the night to urinate. Needing to urinate frequently during the day. Difficulty starting urine flow. Decrease in size and strength of your urine stream. Leaking (dribbling) after urinating. Inability to pass urine. This needs immediate treatment. Inability to completely empty your bladder. Pain when you pass urine. This is more common if there is also an infection. Urinary tract infection (UTI). How is this diagnosed? This condition is diagnosed based on your medical history, a physical exam, and your symptoms. Tests will also be done, such as: A post-void bladder scan. This measures any amount of urine that may remain in your bladder after you finish urinating. A digital rectal exam. In a rectal exam, your health care provider checks your prostate by putting a lubricated, gloved finger into your rectum to feel the back of your prostate gland. This exam detects the size of your gland and any abnormal lumps or growths. An exam of your urine (urinalysis). A prostate specific antigen (PSA) screening. This is a blood test used to screen for prostate cancer. An ultrasound. This test uses sound waves to electronically produce a picture of your prostate gland. Your health care provider may refer you to a specialist in kidney and prostate diseases (urologist). How is this treated? Once symptoms begin, your health care provider will monitor your condition (active surveillance or watchful waiting). Treatment for this condition will depend on the severity of your condition. Treatment may include: Observation and yearly exams. This may be the only treatment needed if your condition and symptoms are mild. Medicines to relieve your symptoms, including: ?Medicines to shrink the prostate. ?Medicines to relax the muscle of the prostate. Surgery in severe cases. Surgery may include: ?Prostatectomy. In this procedure, the prostate tissue is removed completely through an open incision or with a laparoscope or robotics. ?Transurethral resection of the prostate (TURP). In this procedure, a tool is inserted through the opening at the tip of the penis (urethra). It is used to cut away tissue of the inner core of the prostate. The pieces are removed through the same opening of the penis. This removes the blockage. ?Transurethral incision (TUIP). In this procedure, small cuts are made in the prostate. This lessens the prostate's pressure on the urethra. ?Transurethral microwave thermotherapy (TUMT). This procedure uses microwaves to create heat. The heat destroys and removes a small amount of prostate tissue. ?Transurethral needle ablation (TUNA). This procedure uses radio frequencies to destroy and remove a small amount of prostate tissue. ?Interstitial laser coagulation (ILC). This procedure uses a laser to destroy and remove a small amount of prostate tissue. ?Transurethral electrovaporization (TUVP). This procedure uses electrodes to destroy and remove a small amount of prostate tissue. ?Prostatic urethral lift. This procedure inserts an implant to push the lobes of the prostate away from the urethra. Follow these instructions at home: Take oobg-tie-knduozb and prescription medicines only as told by your health care provider. Monitor your symptoms for any changes. Contact your health care provider with any changes. Avoid drinking large amounts of liquid before going to bed or out in public. Avoid or reduce how much caffeine or alcohol you drink. Give yourself time when you urinate. Keep all follow-up visits as told by your health care provider. This is important. Contact a health care provider if: You have unexplained back pain. Your symptoms do not get better with treatment. You develop side effects from the medicine you are taking. Your urine becomes very dark or has a bad smell. Your lower abdomen becomes distended and you have trouble passing your urine. Get help right away if: You have a fever or chills. You suddenly cannot urinate. You feel lightheaded, or very dizzy, or you faint. There are large amounts of blood or clots in the urine. Your urinary problems become hard to manage. You develop moderate to severe low back or flank pain. The flank is the side of your body between the ribs and the hip. These symptoms may represent a serious problem that is an emergency. Do not wait to see if the symptoms will go away. Get medical help right away. Call your local emergency services (911 in the [place] Do not drive yourself to the hospital. Summary Benign prostatic hyperplasia (BPH) is an enlarged prostate that is caused by the normal aging process and not by cancer. An enlarged prostate can press on the urethra. This can make it hard to pass urine. This condition is part of a normal aging process and is more likely to develop in men over the age of 50 years. Get help right away if you suddenly cannot urinate. This information is not intended to replace advice given to you by your health care provider. Make sure you discuss any questions you have with your health care provider. Document Released: 05/23/2006 Document Revised: 04/17/2019 Document Reviewed: 06/27/2017 [employer] Patient Education 2019 Android App Review Source. Follow Up Care 08/03/2021 15:20:11 With:KERI NOLASCO, Hudson Ordoñez, URL Address: [address] [place] [id number]- When: Unknown [facility] 10-22-2020 History of Present illness Narrative 1225 Patient arrives ambulating from Dr marie for phlebotomy. No complaints at this time. 1229 16 gauge needle inserted into left antecubital without problems. Good blood return. Patient tolerated well. 1235 500 ml blood obtained. Needle removed and dressing applied. Patient drinking water. 1237 BP 124/64 pulse 71 No complaints. 1245 BP 129/83 pulse 66 Continues to drink water without complaints 1248 BP 138/83 pulse 73 1250 Patient left ambulating without complaints [facility]: Evaluation + Plan note Future Appointments Appointment Date:09/28/2021 09:00:00 AM Scheduled Provider: Location:[facility] Appointment Type:URO Nurse Visit Appointment Date:02/01/2022 09:45:00 AM Scheduled Provider:Hudson STEVENSON MD Location:[facility] Appointment Type:URO Office Visit [facility] Evaluation + Plan note Future Appointments Appointment Date:10/26/2021 09:00:00 AM Scheduled Provider: Location:[facility] Appointment Type:URO Nurse Visit Appointment Date:02/01/2022 09:45:00 AM Scheduled Provider:Hudson STEVENSON MD Location:[facility] Appointment Type:URO Office Visit [facility] [employer] Evaluation + Plan note Future Appointments Appointment Date:11/23/2021 09:00:00 AM Scheduled Provider: Location:[facility] Appointment Type:URO Nurse Visit Appointment Date:02/01/2022 09:45:00 AM Scheduled Provider:Hudson STEVENSON MD Location:[facility] Appointment Type:URO Office Visit [facility] Evaluation + Plan note Future Appointments Appointment Date:12/21/2021 09:00:00 AM Scheduled Provider: [facility] Appointment Type:URO Nurse Visit Appointment Date:02/01/2022 09:45:00 AM Scheduled Provider:[facility] ST[facility]SON [facility] Office Visit [facility] [employer] Evaluation + Plan note Future Appointments Appointment Date:02/01/2022 09:45:00 AM Scheduled Provider:Hudson STEVENSON MD Location:[facility] Appointment Type:URO Office Visit Diagnostic Tests PendingTestosterone Level Total 12/21/21 [facility] Evaluation + Plan note Future Appointments Appointment Date:03/01/2022 09:30:00 AM Scheduled Provider: Location:[facility] Appointment Type:URO Nurse Visit Diagnostic Tests PendingTestosterone Level Total 04/06/22PSA Total 03/06/22 [facility] Evaluation + Plan note Future Appointments Appointment Date:03/31/2022 08:15:00 AM Scheduled Provider: Location:[facility] Appointment Type:URO Nurse Visit [facility] Evaluation + Plan note Future Appointments Appointment Date:04/21/2022 09:15:00 AM Scheduled Provider: Location:[facility] Appointment Type:URO Nurse Visit [facility] Evaluation + Plan note Future Appointments Appointment Date:05/19/2022 08:00:00 AM Scheduled Provider:Mandy Schaefer MD Location:[facility] Appointment Type:URO Office Visit Diagnostic Tests PendingPSA Total 04/16/22Testosterone Level Total 04/16/22 [facility] [employer] Evaluation + Plan note Future Appointments Appointment Date:06/14/2022 09:00:00 AM Scheduled Provider: Location:[facility] Appointment Type:URO Nurse Visit Appointment Date:11/15/2022 08:45:00 AM Scheduled Provider:Hudson STEVENSON MD Location:[facility] Appointment Type:URO Office Visit Diagnostic Tests PendingPSA Total 05/17/22Testosterone Level Total 05/17/22 [facility] Evaluation + Plan note Future Appointments Appointment Date:09/06/2022 09:00:00 AM Scheduled Provider: Location:[facility] Appointment Type:URO Nurse Visit Appointment Date:11/15/2022 08:45:00 AM Scheduled Provider:Hudson STEVENSON MD Location:[facility] Appointment Type:URO Office Visit [facility] Evaluation + Plan note Future Appointments Appointment Date:10/05/2022 09:00:00 AM Scheduled Provider: Location:[facility] Appointment Type:URO Nurse Visit Appointment Date:10/29/2022 08:45:00 AM Scheduled Provider:Hudson STEVENSON MD Location:[facility] Appointment Type:URO Office Visit Appointment Date:11/05/2022 09:45:00 AM Scheduled Provider:Hudson STEVENSON MD Location:[facility] Appointment Type:URO Office Visit [facility] Evaluation + Plan note Future Appointments Appointment Date:11/05/2022 09:45:00 AM Scheduled Provider:Hudson STEVENSON MD Location:[facility] Appointment Type:URO Office Visit [facility] Evaluation + Plan note Future Appointments Appointment Date:12/03/2022 09:15:00 AM Scheduled Provider: Location:[facility] Appointment Type:URO Nurse Visit Diagnostic Tests PendingTestosterone Level Total 11/05/22PSA Total 11/05/22 [facility] Evaluation + Plan note Future Appointments Appointment Date:01/03/2023 08:15:00 AM Scheduled Provider: Location:[facility] Appointment Type:URO Nurse Visit [facility] Evaluation + Plan note Future Appointments Appointment Date:01/31/2023 08:45:00 AM Scheduled Provider: Location:[facility] Appointment Type:URO Nurse Visit [facility] Evaluation + Plan note Future Appointments Appointment Date:03/07/2023 08:45:00 AM Scheduled [facility] Type[facility] Nurse Visit Appointment Date:04/04/2023 08:45:00 AM Scheduled Provider[facility] Type:URO Nurse Visit Appointment Date:05/02/2023 08:45:00 AM Scheduled Provider[facility] Type:URO Nurse Visit Appointment Date:05/27/2023 09:45:00 AM Scheduled Provider:Hudson STEVENSON MD Location:[facility] Appointment Type:URO Office Visit [facility] Evaluation + Plan note Future Appointments Appointment Date:05/02/2023 08:45:00 AM Scheduled Provider: Location:[facility] Appointment Type:URO Nurse Visit Appointment Date:06/20/2023 10:30:00 AM Scheduled Provider:Hudson STEVENSON MD Location:[facility] Appointment Type:URO Office Visit [facility] Evaluation + Plan note Future Appointments Appointment Date:06/20/2023 10:30:00 AM Scheduled Provider:Hudson STEVENSON MD Location:[facility] Appointment Type:URO Office Visit Diagnostic Tests PendingTestosterone Level Total 05/09/23 [facility] Evaluation + Plan note Future Appointments Appointment Date:07/18/2023 09:30:00 AM Scheduled Provider: Location:[facility] Appointment Type:URO Nurse Visit Diagnostic Tests PendingPSA Total 06/20/23Testosterone Level Total 06/20/23 [facility] Evaluation note Diagnosis Polycythemia- Primary Polycythemia vera documented in this encounter [employer] Phone: evaluation note* Diagnosis Polycythemia- Primary Polycythemia vera documented in this encounter [employer] Phone: Hospital course Narrative No data available for this section [facility] Hospital Discharge instructions No data available for this section [facility] progress note No data available for this section [facility] Summary Purpose Family History No Family History Records FoundNo Family History Records FoundNo Family History Records FoundNo Family History Records FoundNo Family History Records Found No data available for this section No Family History Records FoundNo Family History Records Found No data available for this section No Family History Records FoundNo Family History Records FoundNo Family History Records Found No data available for this section Advance Directives Documents on File Type Date Recorded Patient Broadcast Correspondent Expl anation Advance Directives and Livin g Will Advance Directives and Livin g Will 08/31/2013 9:46 AM Power of Child Development Instructor Power of Child Development Instructor 08/31/2013 9:46 AM Latest Code Status on File Code Status Date Activated Date Inactivated Comments Full Code 08/06/2016 9:06 AM 08/09/2016 5:53 PM Full Code 08/04/2016 9:28 PM 08/06/2016 9:06 AM Full Code 05/15/2015 12:42 PM 05/19/2015 6:52 PM Full Code 05/12/2015 11:22 AM 05/15/2015 12:42 PM Full Code 05/13/2014 2:36 PM 05/13/2014 9:20 PM Documents on File Type Date Recorded Patient Broadcast Correspondent Expl anation ACP-Advance Directive ACP-Power of Child Development Instructor ACP-Advance Directive 08/31/2013 9:46 AM ACP-Power of Child Development Instructor 08/31/2013 9:46 AM Documents on File Type Date Recorded Patient Broadcast Correspondent Expl anation ACP-Advance Directive 08/31/2013 9:46 AM ACP-Power of Child Development Instructor 08/31/2013 9:46 AM Latest Code Status on File Code Status Date Activated Date Inactivated Comments Full Code 08/06/2016 9:06 AM 08/09/2016 5:53 PM Code Status History Code Status Date Activated Date Inactivated Comments Full Code 08/04/2016 9:28 PM 08/06/2016 9:06 AM Full Code 05/15/2015 12:42 PM 05/19/2015 6:52 PM Full Code 05/12/2015 11:22 AM 05/15/2015 12:42 PM Full Code 05/13/2014 2:36 PM 05/13/2014 9:20 PM History of Present Illness * Luh Hoffman RN - 03/13/2019 8:24 AM EDT 0800 Pt arrived for scheduled Phlebotomy. 0811 Right arm accessed in antecubital with 16G closed bag system with immediate return of blood. Pt instructed to alert nurse if feeling any dizziness or lightheadedness. Pt states he always tolerates these. 0817 500ml of blood collected. Pt tolerated procedure well. Instructed pt to start drinking water for recovery. Pt denies feeling any dizziness or lightheadedness. Pt talking and visiting with staff. 0819 pt cont to visit with staff, denies feeling any dizziness BP 131/80 P 64 0824 pt cont to deny any dizziness or lightheadedness BP 132/80 P63 0829 Pt cont to deny any problems, resp easy and pt talking with staff. BP 130/84 P 62. 0834 Pt denies any dizziness or lightheadedness. Resp easy. BP 137/82 P80. Pt drank 2 glasses of water and sending pt with bottle of water. Instructed pt to drink plenty of water today and if feelingany lightheaded or dizzy feelings to rest. Pt verbalized understanding and denies any questions. documented in this encounter* Alison Sorenson RN - 07/27/2019 8:00 AM EST 08:09 Patient here for scheduled phlebotomy, # 16 gauge needle to closed system initiated into right antecubital with brisk blood returned. 08:17 Phlebotomy completed 500 ml obtained, needle removed and site covered with dressing and secured with coban, tolerated well . 08:20 135/73-70, drinking water. 08:25 123/76-67 , drinking second cup of water, continues to do well. 08:30 137/89-67 , doing well and ready for discharge, instructed to force fluids today and rest. documented in this encounter* Sidra Bustamante RN - 01/12/2019 8:16 AM EDT 0816 Phlebotomy started using a 16 gauge phlebotomy kit to right anticub. Patient tolerated well. Brisk blood return noted, patient denies dizziness/lightheadedness. 0820 Blood continues to drain. Patient denies dizziness/lightheadedness. Patient drank 120ml water. 0824 Phlebotomy complete with 500ml bag full. Patient denies dizziness/lightheadedness. 0825 BP 143/91 HR 70. Patient denies dizziness/lightheadedness. 0830 BP 157/93 HR 67. Patient denies dizziness/lightheadedness. 0835 BP 142/90 HR 73. Patient denies dizziness/lightheadedness.Patient drank 120ml water. 0840 BP 145/87 HR 66. Patient denies dizziness/lightheadedness. 0845 Patient standing and denies dizziness/lightheadedness. Instructed to rest today and increase fluids. documented in this encounter Assessments Diagnosis Polycythemia- Primary Polycythemia vera Diagnosis Polycythemia- Primary Polycythemia vera Additional Source Comments (unrecognized sect ion and content) No Status Records FoundNo Status Records FoundNo Status Records FoundNo Status Records FoundNo Status Records FoundNo Status Records FoundNo Status Records FoundNo Status Records FoundNo Status Records FoundNo Status Records Found INFORMATION SOURCE (unrecogn ized section and content) DATE CREATED AUTHOR 11/24/2017 [facility] DATE CREATED AUTHOR AUTHOR'S ORGANIZ ATION 03/15/2018 [facility] DATE CREATED AUTHOR AUTHOR'S ORGANIZ ATION 07/01/2021 [facility] DATE CREATED AUTHOR AUTHOR'S ORGANIZ ATION 09/26/2021 [facility] DATE CREATED AUTHOR AUTHOR'S ORGANIZ ATION 11/13/2022 [facility] DATE CREATED AUTHOR AUTHOR'S ORGANIZ ATION 04/09/2023 [facility] DATE CREATED AUTHOR AUTHOR'S ORGANIZ ATION 04/28/2023 [facility] DATE CREATED AUTHOR AUTHOR'S ORGANIZ ATION 05/14/2023 [facility] DATE CREATED AUTHOR AUTHOR'S ORGANIZ ATION 05/19/2023 [facility] EPIC DATE CREATED AUTHOR AUTHOR'S ORGANIZ ATION 06/02/2023 Jonathan Mchugh [facility] Care Team (unrecognized sect ion and content) Personnel Name: JORDAN DUNCAN MD Address: Address: [address] [address] [employer] Relationship Specialty Start Date End Date Jordan Duncan MD PCP - General 07/25/19 FOR RECORDS PERTAINING TO PATIENTS WHO ARE OR HAVE BEEN ENROLLED IN A CHEMICAL DEPENDENCY/SUBSTANCEABUSE PROGRAM, SOME INFORMATION MAY BE OMITTED. This clinical summary was aggregated from multiple sources. Caution should be exercised in using it in the provision of clinical care. This summary normalizes information from multiple sources, and as a consequence, information in this document may materially change the coding, format and clinical context of patient data. In addition, data may be omitted in some cases. CLINICAL DECISIONS SHOULD BE BASED ON THE PRIMARY CLINICAL RECORDS. [employer] provides no warranty or guarantee of the accuracy or completeness of information in this document.
== END 2023-06-30 10:08 | disposition home or self-care (01) ==
LOC: WC 10:07
PROVIDERS: PCP Internal Medicine Interventional Cardiology; Visit Provider Physician Assistant
DX: M79.671 Pain in right foot (principal); E11.621 Type 2 diabetes mellitus with foot ulcer; L97.412 Non-pressure chronic ulcer of right heel and midfoot with fat layer exposed
CPT/HCPCS: 11043; 73630; G0463

== ENCOUNTER 2023-07-15 10:27 | Outpatient (OUT) | payer MEDICARE, SELFPAY ==
--- OUTSIDE RECORDS SUMMARY | 2023-07-15 10:49 | XMS_ITS | CCD ---
Author Name Unknown Address [address] [facility] [address] [place] [address] Organization [facility] Care Team Providers Care Director Of Regional Sales Name Role Phone PHYSICIAN, DEFAULT Unavailable Unavailable PHYSICIAN, DEFAULT Unavailable Unavailable Diego Bartlett Primary Care Provider Jordan Duncan Primary Care Provider [phone] Jordan Duncan MD Primary Care Provider JORDAN DUNCAN Primary Care Physician [phone] Jordan Duncan MD Primary Care Provider JORDAN DUNCAN Primary Care Physician Unavail able Jordan Duncan MD Primary Care Provider ENEDINA HARGROVE Attending Unavailable HEMEENOC ., DR ALATORRE Primary Care Unavailable ENEDINA HARGROVE Admitting Unavailable ENEDINA HARGROVE Admitting Unavailable ENEDINA HARGROVE [...] Primary Care Unavailable HEMEYER ., DR ALATORRE Primary Care Unavailable ENEDINA [...] to adverse reactions to drug 8 Diarrhea [place], [place] (2 sources) Clindamycin Drug Allergy 2 [facility] (3 sources) glipiZIDE; 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: [GLIPIZIDE] Drug Allergy 2 Diarrhea [facility] Work Phone: (3 sources) metFORMIN; 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: [METFORMIN] Drug Allergy 2 Diarrhea [facility] Work Phone: (3 sources) Pravastatin; 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: [PRAVASTATIN] Drug Allergy 2 [facility] Work Phone: (3 sources) rosuvastatin; 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: [ROSUVASTATIN] Drug Allergy 2 [employer] Phone: (2 sources) Clindamycin; 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: [CLINDAMYCIN] Drug Allergy 7 [facility] Repository (1 source) glipiZIDE Drug Allergy 7 [facility] Repository (1 source) metFORMIN Drug Allergy 7 [facility] Rep[facility] (1 source) ezetimibe; 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: [EZETIMIBE] Drug Allergy 2 [facility] Repository Medications Current Medications Medication Drug [...] Status: Ordered take 2 tablets by mo [facility] twice daily in the evening [...] Daily, # 90 tab(s), Refills(s) 3, Pharmacy: [facility]/pharmacy #[id number], 198, cm, 11/05/22 10:14:00 EDT, Height/Length Dosing, 150, kg, 11/05/22 10:14:00 EDT, Weight Dosing Start Date: 05/26/23 Status: Ordered Start: 09-08-2017 take 1 tablet by [facility] once daily oxybutynin 5 mg ER Tab 5 mg = 1 tab(s), Oral, Daily, # 90 tab(s), Refills(s) 3, Pharmacy: [facility]/pharmacy #[id number], 198, cm, 06/18/22 9:10:00 EST, Height/Length [...] Daily, # 90 cap(s), Refills(s) 3, Pharmacy: [facility]/pharmacy #[id number], 198, cm, 11/05/22 10:14:00 EDT, Height/Length Dosing, 150, kg, 11/05/22 10:14:00 EDT, Weight Dosing Start Date: 05/26/23 Status: Ordered Start: 06-18-2022 take 1 capsule by [facility] once daily tamsulosin 0.4 mg Cap 0.4 mg = 1 cap(s), Oral, Daily, # 90 cap(s), Refills(s) 3, Pharmacy: [facility]/pharmacy #[id number], 198, cm, 06/18/22 9:10:00 EST, Height/Length [...] q4wk, # 10 mL, Refills(s) 1, Pharmacy: [facility]/pharmacy #[id number], 198, cm, 06/20/23 11:05:00 EST, Height/Length Dosing, 149, kg, 06/20/23 11:05:00 EST, Weight Dosing Start Date: 06/20/23 Status: Ordered Start: 05-09-2023 testosterone c ypionate 200 mg/mL IM Richelle 400 mg, IntraMuscular, q4wk, # 10 mL, Refills(s) 1, Pharmacy: [facility]/pharmacy #[id number], 198, cm, 11/05/22 10:14:00 EDT, Height/Length Dosing, 150, kg, 11/05/22 10:14:00 EDT, Weight Dosing Start Date: 05/09/23 Status: Ordered Start: 02-08-2023 testosterone c ypionate 200 mg/mL IM Richelle 400 mg, IntraMuscular, q4wk, # 10 mL, Refills(s) 2, Pharmacy: [facility]/pharmacy #[id number], 198, cm, 11/05/22 10:14:00 EDT, Height/Length Dosing, 150, kg, 11/05/22 10:14:00 EDT, Weight Dosing Start Date: 02/08/23 Status: Ordered Start: 08-27-2022 testosterone c ypionate 200 mg/mL IM Richelle 400 mg, IntraMuscular, q4wk, # 10 mL, Refills(s) 2, Pharmacy: [facility]/pharmacy #[id number], 198, cm, 06/18/22 9:10:00 EST, Height/Length Dosing, 164, kg, 06/18/22 9:10:00 EST, Weight Dosing Start Date: 08/27/22 Status: Ordered testosterone cypionate 200 mg/mL intramuscular solution (17 sources) Start: 02-01-2022 testosterone c ypionate 200 mg/mL intramuscular solution 400 mg = 2 mL, IntraMuscular, q4wk, 400mg once a month, # 10 mL, Refills(s) 3, Pharmacy: [facility]/pharmacy #[id number], 198, cm, 02/01/22 9:53:00 EDT, Height/Length Dosing, 166, kg, 02/01/22 9:53:00 EDT, Weight Dosing Start Date: 02/01/22 Status: Ordered Start: 11-23-2021 testosterone c ypionate 200 mg/mL intramuscular solution 350 mg, IntraMuscular, q4wk, # 10 mL, Refills(s) 1, Pharmacy: [facility]/pharmacy #[id number], 198, cm, 08/03/21 14:37:00 EST, Height/Length Dosing, 166, kg, 08/03/21 14:37:00 EST, Weight Dosing Start Date: 11/23/21 Status: Ordered Start: 08-03-2021 testosterone c ypionate 200 mg/mL intramuscular solution 350 mg, IntraMuscular, q4wk, # 10 mL, Refills(s) 1, Pharmacy: [facility]/pharmacy #[id number], 198, cm, 08/03/21 14:37:00 EST, Height/Length [...] Coronary arteriosclerosis; 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: [Atherosclerotic heart disease of [place] coronary artery without angina pectoris] Onset: 03-02-2022 [...] 08-05-2016 08-05-2016 Chronic 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; 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: [IT OPERATIONS SPECIALIST CURRNT USE ANTICOAGULANTS] Onset: 10-12-2022 Episodic 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 (1 source) residential (current) use of aspirin; 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: [SNF CURRENT USE OF ASPIRIN] Onset: 10-12-2022 Episodic 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 [address] [place] [address] CLIA No. [id number] CAP Accreditation No. [id number] Clinical Research Tech: Shaunna Dee M.D. Platelets (Bld) [#/Vol] 125 [...] Laboratories Inc Office Visiton 04-08-2023 Follow-up visit [id number] Juan Miguel Jennings 1950 M Date Provider Department Center 04/08/2023 AbhayANUJA DENTON [facility] Family History Problem Relation Age of Onset Heart disease Mother Heart disease Father Family Status - Relation Status Age at Mother Father Level of Service:43331 UT OFFICE/OUTPATIENT ESTABLISHED MOD MDM 30-39 MIN Normal [facility] Medication Consenton 023 Medication Consent [id number] .[id number] Normal [facility] Ambulatory Visit Summaryon 1 Ambulatory Visit [...] AM EST With: Where: [facility] Normal [address] [place] [address] [place] [address]- \.br\ Medications\.br\ What How Much When Instructions\.br\ [...] PSA\.br\ History of colon cancer\.br\ Hx of oysterman use of blood thinners\.br\ Hyperlipidemia\.br\ Hypertension\.br\ Hypogonadism\.br\ [...] for choosing us for your care.\.br\ \.br\ [facility] Ambulatory Visit Summaryon 1 Ambulatory Visit [...] AM EDT With: Where: [facility] Invalid Interpretation Code [address] [place] [address] [place] [address]- \.br\ Tuesday 9:45 AM EST \.br\ With: Hudson STEVENSON MD\.br\ Where: [facility] Ambulatory Visit Summaryon 0 02-08-2023 Ambulatory Visit [...] AM EDT With: Where: [facility] Invalid Interpretation Code [address] [place] [address] [place] [address]- \.br\ Tuesday 8:45 AM EST \.br\ With:\.br\ Where: [facility] Ambulatory Visit Summaryon 0 01-03-2023 Ambulatory Visit [...] 8:45 AM EDT Where: [facility] Lab Reportson 11-08-2022 Lab Reports [id number] .00CD:127 [facility] Ambulatory Visit Summaryon 0 11-05-2022 Ambulatory Visit Summary JUAN MIGUEL JENNINGS :1950 Visit Date:11/05/2022 Ambulatory Visit Instructions Your Diagnosis Elevated PSA BPH with urinary obstruction Hypogonadism Phimosis Urinary urgency Tests Performed Urnls Dip Stick Auto w/o Microscopy POC 06422 Your Care Team Attending Physician - KERI [...] 9:15 AM EDT Where: [facility] Normal [facility] Patient Educationon 11-06-19 Patient Education Urology [...] Follow these instructions at home: ? Take qhvd-bmr-zwihinj and prescription medicines only as told by [...] the medicine (more content not included)... Normal [facility] Screenson 11-05-2022 Screens [id number]# 1.00CD:127 Normal [facility] Urology Office/Clinic Noteon 11-05-2022 Urology Office/Clinic [...] Urology [address], [place] [address]- Additional Instructions: 6 mos PSA, T level [...] PSA History of colon cancer Hx of oysterman use of blood thinners Hyperlipidemia Hypertension Hypogonadism [...] Allergies Social (more content not included)... Normal [facility] Comment on above: Result Comment: Electronically [...] Inc Comment on above: Result Comment: Pathology [employer]. [address] [place] [address] CLIA No. [id number] CAP Accreditation No. [id number] Clinical Research Tech: Shaunna Dee M.D. Platelets (Bld) [#/Vol] 105 10*3/uL Low 130-400 [facility] [employer] RBC (Bld) [#/Vol] 5.27 10*6/uL Normal [...] Laboratories Inc Lab Reportson 10-21-2022 Lab Reports [id number] .00CD:127 Normal [facility] Ambulatory Visit Summaryon 0 10-05-2022 Ambulatory [...] NOLASCO, Hudson Ordoñez Where: [facility] Pathology Noteon 10-05-2022 Pathology Note [id number] .00CD:127 [facility] Operative Reporton Operative Report [id number] .00CD:127 [facility] Consultation Noteon 10-01-19 Consultation Note [id number] .00CD:127 Normal [facility] POINT OF CARE GLUCOSEon 09-05 Glucose [Mass/Vol] 112 mg/dL Critically high 74-106 [facility] Comment on above: Performed By: #### POCGLUC #### [facility] [address] [address] [address] Patria Sanders Formson 09-28-2022 Forms [id number] .00CD:127 Normal [facility] Formson 09-27-2022 Forms [id number] .00CD:127 Normal [facility] Formson 09-21-2022 Forms [id number] .00CD:127 Normal [facility] ECG 12-Leadon 09-20-2022 ECG 12-Lead [id number] .00CD:127 Normal [facility] Lab Reportson 09-20-2022 Lab Reports [id number] .00CD:127 Normal [facility] RAD - MISCon 09-20-2022 RAD - MISC [id number] .00CD:127 Normal [facility] CBC AUTO DIFFon 09-15-2022 BASO # 0.0 103/ul Normal 0.0-0.1 [facility] Comment on above: Performed By: #### CBC #### [facility] [address] [place] [address] Dr. Patria Sanders Basophils/100 WBC (Bld) 0.5 % Normal 0.2-2.0 [facility] Comment on above: Performed By: #### CBC #### [facility] [address] [place] [address] Dr. Patria Sanders EO # 0.3 103/ul Normal 0.0-0.7 [facility] Comment on above: Performed By: #### CBC #### [facility] [address] [address] [address] Patria Sanders Eosinophils/100 WBC (Bld) 3.2 % Normal 0.9-7.0 [facility] Comment on above: Performed By: #### CBC #### [facility] [address] [place] [address] Dr. Patria Sanders Erythrocyte distribution width (RBC) [Ratio] 14.5 % Normal 11.0-15.0 [facility] Comment on above: Performed By: #### CBC #### [facility] [address] [address] [address] Patria Sanders Hematocrit (Bld) [Volume fraction] 49.0 % Normal 42.0-54.0 [facility] Comment on above: Performed By: #### CBC #### [facility] [address] [address] [address] Patria Sanders Hemoglobin (Bld) [Mass/Vol] 16.7 g/dL Normal 14.0-18.0 [facility] Comment on above: Performed By: #### CBC #### [facility] [address] [place] [address] Dr. Patria Sanders IG # 0.03 10e3/ul Normal 0.00-0.03 [facility] Comment on above: Performed By: #### CBC #### [facility] [address] [place] [address] Dr. Patria Sanders IG % 0.4 % Normal 0.0-0.5 [facility] Comment on above: Performed By: #### CBC #### [facility] [address] [place] [address] Dr. Patria Sanders LYMPH # 1.1 103/ul Critically low 1.2-3.8 [facility] Comment on above: Performed By: #### CBC #### [facility] [address] [place] [address] Dr. Patria Sanders Lymphocytes/100 WBC (Bld) 14.5 % Critically low 20.5-60.0 [facility] Comment on above: Performed By: #### CBC #### [facility] [address] [place] [address] Dr. Patria Sanders MANUAL DIFF REQ NO Normal [facility] Comment on above: Performed By: #### CBC #### [facility] [address] [place] [address] Dr. Patria Sanders MCH (RBC) [Entitic mass] 32.6 pg Normal 25.9-34.0 [facility] Comment on above: Performed By: #### CBC #### [facility] [address] [place] [address] Dr. Patrai Sanders MCHC (RBC) [Mass/Vol] 34.1 g/dL Normal 29.9-35.2 [facility] Comment on above: Performed By: #### CBC #### [facility] [address] [place] [address] Dr. Patria Sanders MCV (RBC) [Entitic vol] 95.5 fL Critically high 80.0-94.0 [facility] Comment on above: Performed By: #### CBC #### [facility] [address] [place] [address] Dr. Patria Sanders MONO # 0.8 103/ul Normal 0.3-0.8 [facility] Comment on above: Performed By: #### CBC #### [facility] [address] [place] [address] Dr. Patria Sanders Monocytes/100 WBC (Bld) 9.6 % Normal 1.7-12.0 [facility] Comment on above: Performed By: #### CBC #### [facility] [address] [place] [address] Dr. Patria Sanders NEUT # 5.6 103/ul Normal 1.4-6.5 [facility] Comment on above: Performed By: #### CBC #### [facility] [address] [place] [address] Dr. Patria Sanders Neutrophils/100 WBC (Bld) 71.8 % Normal 43.0-75.0 [facility] Comment on above: Performed By: #### CBC #### [facility] [address] [address] [address] Patria Sanders Platelet mean volume (Bld) [Entitic vol] 11.6 fL Normal 9.5-13.5 [facility] Comment on above: Performed By: #### CBC #### [facility] [address] [place] [address] Dr. Patria Sanders PLT 154 103/ul Normal 150-450 [facility] Comment on above: Performed By: #### CBC #### [facility] [address] [place] [address] Dr. Patria Sanders RBC 5.13 106/ul Normal 4.70-6.10 [facility] Comment on above: Performed By: #### CBC #### [facility] [address] [place] [address] Dr. Patira Sanders WBC 7.8 103/ul Normal 4.0-11.0 [facility] Comment on above: Performed By: #### CBC #### [facility] [address] [place] [address] Dr. Patria Sanders PROF CHEM 8 (BAS METB)on Anion gap [Moles/Vol] 11.4 mmol/L Normal [facility] Comment on above: Performed By: #### BMP #### [facility] [address] [place] [address] Dr. Patria Sanders Calcium [Mass/Vol] 9.1 mg/dL Normal 8.5-10.1 [facility] Comment on above: Performed By: #### BMP #### [facility] [address] [place] [address] Dr. Patria Sanders Chloride [Moles/Vol] 104 mmol/L Normal 98-107 [facility] Comment on above: Performed By: #### BMP #### [facility] [address] [place] [address] Dr. Patria Sanders CO2 [Moles/Vol] 28.7 mmol/L Normal 21.0-32.0 [facility] Comment on above: Performed By: #### BMP #### [facility] [address] [place] [address] Dr. Patria Sanders Creatinine [Mass/Vol] 0.80 mg/dL Normal 0.70-1.30 [facility] Comment on above: Performed By: #### BMP #### [facility] [address] [place] [address] Dr. Patria Sanders EGFR-AF CYPRIOT >60 Normal >=60 [facility] Comment on above: Performed By: #### BMP #### [facility] [address] [place] [address] Dr. Patria Sanders EGFR-NON AF CYPRIOT >60 Normal >=60 [facility] Comment on above: Performed By: #### BMP #### [facility] [address] [address] [address] Patria Sanders Glucose [Mass/Vol] 101 mg/dL Normal 74-106 [facility] Comment on above: Performed By: #### BMP #### [facility] [address] [address] [address] Patria Sanders Potassium [Moles/Vol] 4.1 mmol/L Normal 3.5-5.1 [facility] Comment on above: Performed By: #### BMP #### [facility] [address] [address] [address] Patria Sanders Sodium [Moles/Vol] 140 mmol/L Normal 136-145 [facility] Comment on above: Performed By: #### BMP #### [facility] [address] [place] [address] Dr. Patria Sanders Urea nitrogen [Mass/Vol] 11.0 mg/dL Normal 7.0-18.0 [facility] Comment on above: Performed By: #### BMP #### [facility] [address] [place] [address] Dr. Patria Sanders Urea nitrogen/Creatin ine [Mass ratio] 13.8 mg/mg Normal [facility] Comment on above: Performed By: #### BMP #### [facility] [address] [place] [address] Dr. Patria Sanders PROTIMEon 09-15-2022 INR Coag (PPP) [Relative time] 1.02 {INR} Normal [facility] Comment on above: Performed By: #### PTT, PT #### [facility] [address] [place] [address] Dr. Patria Sanders INR GUIDELINES SEE BELOW Normal [facility] Comment on above: Result Comment: DESIRED INR: 2.0 - 3.0 C ONDITIONS NOT LISTED BELOW 2.5 - 3.5 FOR PROSTHETIC HEART VALVE REPLACEMENT 2.5 - 3.5 RECURRENT THROMBOSIS Performed By: #### P TT, PT #### [facility] [address] [place] [address] Dr. Ptaria Sanders PT Coag (PPP) [Time] 10.8 s Normal 9.0-11.6 [facility] Comment on above: Performed By: #### PTT, PT #### [facility] [address] [place], [place] [address] Dr. Patria Sanders PTTon 09-15-2022 aPTT Coag (Bld) [Time] 32.0 s Normal 22.3-36.2 [facility] Comment on above: Performed By: #### PTT, PT #### [facility] [address] [place], [place] [address] Dr. Patria Sanders Ambulatory Visit Summaryon 0 [...] AM EDT With: Where: [facility] Invalid Interpretation Code [address] [place] [address] [place] [address]- \.br\ Tuesday 9:45 AM EDT \.br\ With: KERI NOLASCO, Hudson Ordoñez\.br\ Where: [facility] Consent for Procedure/Surger yon 09-06-2022 Consent for Procedure/Surger y [id number] .00CD:127 [facility] Ambulatory Visit Summaryon 0 06-18-2022 Ambulatory Visit Summary JUAN MIGUEL JENNINGS :1950 Visit Date:06/18/2022 Ambulatory Visit Instructions Your Diagnosis BPH with urinary obstruction Hypogonadism Phimosis Urinary urgency Tests Performed Urnls Dip Stick Auto w/o Microscopy POC 72633 Your Care Team Attending Physician - KERI [...] AM EDT With: Where: [facility] [address] [place] [address]- \.br\ You Need to Schedule the Following Appointments\.br\ Follow Up with KERI NOLASCO, Hudson Ordoñez, URL When: \.br\ Where:\.br\ [facility]\.br\ [place] [address]-\.br\ Medications\.br\ What How Much When Instructions\.br\ New tamsulosin (tamsulosin 0.4 mg Cap) 1 Capsules By Mouth Every day Refills: 3 Pickup at [facility]/pharmacy #[id number]\.br\ Unchanged oxybutynin (oxybutynin 5 mg ER [...] if questions or concerns \.br\ Pharmacy Information\.br\ [facility]/pharmacy #[id number]: [address], [place] [phone]\.br\ Test Results\.br\ Urnls Dip Stick Auto w/o Microscopy POC 46981 (06/18/2022)\.br\ Bilirubin Urine Dipstick - 1+ Small\.br\ Blood Urine Dipstick - Negative\.br\ Glucose Urine Dipstick - Negative\.br\ Ketones Urine Dipstick - Trace - 5 mg/dl\.br\ Leukocytes Urine Dipstick - Negative\.br\ Nitrite Urine Dipstick - Negative\.br\ Protein Urine Dipstick - 2+ (100 mg/dl)\.br\ Specific [place] Urine Dipstick - >=1.030\.br\ Urine Appearance Urine Dipstick - Clear\.br\ Urine Color Urine Dipstick - Yellow\.br\ Urobilinogen Urine Dipstick - Normal 0.2-1 EU/dl\.br\ pH Urine Dipstick - 6\.br\ Allergies\.br\ No Known Allergies\.br\ Problems\.br\ Ongoing - Any problem that you are currently receiving treatment for.\.br\ BPH with urinary obstruction\.br\ Coronary artery disease\.br\ Diabetes\.br\ History of colon cancer\.br\ Hx of oysterman use of blood thinners\.br\ Hypertension\.br\ Hypogonadism\.br\ Hypogonadism [...] ? \.br\ Transurethral electrovaporization (TUVP). This proce [facility] Patient Educationon 06-18-19 Patient Education Urology [...] Follow these instructions at home: ? Take aluh-apk-krysdrd and prescription medicines only as told by [...] You d (more content not included)... Normal [facility] Urology Office/Clinic Noteon 06-18-2022 Urology Office/Clinic [...] Information KERI NOLASCO, Hudson Ordoñez, URL [address] [place] [address]- Additional Instructions: As scheduled w PSA & [...] Urinary frequen (more content not included)... Normal [facility] Comment on above: Result Comment: Electronically [...] Hudson STEVENSON MD Where: [facility] Invalid Interpretation Code [address] [place] [address] [place] [address]- \.br\ Tuesday 8:45 AM EDT \.br\ With: Hudson STEVENSON MD\.br\ Where: [facility] Covid-19 PCR (CVDTBH)on 01-04 SARS-CoV-2 (COVID-19) RNA NANCY+probe Ql (Unsp spec) Not detected Normal NOT DETECTED [facility] Comment on above: Result Comment: This test is not yet oscar roved or cleared by the [place] FDA. When there are no FDA-approved or cleared tests available, and other criteria are met, FDA can make tests available under an emergency access mechanism called an Emergency Use Authorization (EUA). The EUA for this test is supported by the [place] of Health and Human Service's (HHS's) declaration [...] consistent with SARS-CoV-2. Performed By: #### [facility] #### [facility] [address] [place], [place] [address] Dr. Patria Sanders Hemoglobin A1Con 09-24-2021 EAG 128.37 Normal [facility] Comment on above: Performed By: #### A1C #### [facility] [address], [place] [id number] HbA1c (Bld) [Mass fraction] 6.1 % High 4.0-6.0 [facility] Comment on above: Performed By: #### A1C #### [facility] [address], [place] [id number] Testosteroneon 05-11-2021 TESTOS 314.70 ng/dL Normal 193.00-740.00 [facility] Comment on above: Performed By: #### TEST #### [facility] [address], [place] [id number] XR femur BIon 05-06-2021 XR femur BI [facility] [place] [address] XRay Report Signed Patient: Juan Miguel Jennings MR#: [id number] 25 : 1950 Acct:[id number] Age/Sex: 71 / M ADM Date: 05/06/21 Loc: ICXD Room: Type: [facility] Attending Dr: Maxwell Staley PA-C Ordering Provider: Maxwell Staley PA-C Date of Service: 05/06/21 XR/XR chest 2V*: Z01.818 ([id number]) XR/XR femur BI: Z01.818 ([id number]) XR/XR tibia/fibula BI: . 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 [facility] Vital Signs Date Time Vital Sign Value Performing Clinician Facility 06-20-2023 10:33-0500 Blood Pressure Location Hudsonpeter STEVENSON [facility] 06-20-2023 10:33-0500 Diastolic blood pressure 86 mm[Hg] Hudson STEVENSON [facility] 06-20-2023 10:33-0500 Heart rate 70 /min Hudson STEVENSON [facility] 06-20-2023 10:33-0500 Respiratory rate 16 /min Hudson STEVENSON [facility] 06-20-2023 10:33-0500 Systolic blood pressure 139 mm[Hg] Hudson STEVENSON [facility] 11-05-2022 10:12-0400 Blood Pressure Location Hudsonpeter STEVENSON [facility] 11-05-2022 10:12-0400 Diastolic blood pressure 78 mm[Hg] Hudson STEVENSON [facility] 11-05-2022 10:12-0400 Heart rate 68 /min Hudsonpeter STEVENSON [facility] 11-05-2022 10:12-0400 Respiratory rate 16 /min Hudsonpeter STEVENSON [facility] 11-05-2022 10:12-0400 Systolic blood pressure 130 mm[Hg] Hudson STEVENSON [facility] 11-03-2022 14:34-0400 Body temperature 97.5 [degF] [facility]th[facility] Schedule [facility] 11-03-2022 14:34-0400 Diastolic blood pressure 77 mm[Hg] [facility] Schedule [facility] 11-03-2022 14:34-0400 Heart rate 72 /min [facility] Schedule [facility] 11-03-2022 14:34-0400 Respiratory rate 18 /min [facility] Schedule [facility] 11-03-2022 14:34-0400 Systolic blood pressure 140 mm[Hg] Mthz Schedule [facility] 06-18-2022 08:55-0500 Blood Pressure Location Hudson STEVENSON [facility] 06-18-2022 08:55-0500 Diastolic blood pressure 82 mm[Hg] Hudsonpeter STEVENSON [facility] 06-18-2022 08:55-0500 Heart rate 80 /min Hudsonpeter STEVENSON [facility] 06-18-2022 08:55-0500 Respiratory rate 16 /min Hudson STEVENSON [facility] 06-18-2022 08:55-0500 Systolic blood pressure 132 mm[Hg] Hudsonpeter STEVENSON [facility] 05-17-2022 09:43-0500 Blood Pressure Location Hudson STEVENSON [facility] 05-17-2022 09:43-0500 Diastolic blood pressure 92 mm[Hg] Hudson STEVENSON [facility] 05-17-2022 09:43-0500 Heart rate 63 /min Hudson STEVENSON [facility] 05-17-2022 09:43-0500 Systolic blood pressure 143 mm[Hg] Hudson STEVENSON [facility] 02-01-2022 09:48-0400 Blood Pressure Location Hudson STEVENSON [facility] 02-01-2022 09:48-0400 Diastolic blood pressure 66 mm[Hg] Hudson STEVENSON [facility] 02-01-2022 09:48-0400 Heart rate 84 /min Hudson STEVENSON [facility] 02-01-2022 09:48-0400 Respiratory rate 16 /min Hudson STEVENSON [facility] 02-01-2022 09:48-0400 Systolic blood pressure 98 mm[Hg] Hudson STEVENSON [facility] 01-28-2022 13:48-0400 Diastolic blood pressure 76 mm[Hg] [facility] Schedule [facility] [employer] 01-28-2022 13:48-0400 Heart rate 56 /min [facility] Schedule [facility] [employer] 01-28-2022 13:48-0400 Respiratory rate 18 /min [facility] Schedule [facility] [employer] 01-28-2022 13:48-0400 Systolic blood pressure 135 mm[Hg] [facility] Schedule [facility] [employer] 01-28-2022 13:25-0400 Body temperature 97.39 [degF] [facility] Schedule [facility] [employer] 10-22-2020 12:25-0400 Body temperature 97.81 [degF] Mthz Schedule [employer] Work Phone: 10-22-2020 12:25-0400 Heart rate 67 /min Mth[facility] Schedule [employer] Work Phone: 07-27-2019 08:03-0500 Body Temperature 96.3 [degF] [facility] Schedule [facility] [employer] [place] 07-27-2019 08:03-0500 BP Diastolic 80 mm[Hg] Mthz Schedule [employer] [place] , [place] 07-27-2019 08:03-0500 BP Systolic 129 mm[Hg] Mth[facility] Schedule [facility] [place] , [place] 07-27-2019 08:03-0500 Pulse (Heart Rate) 63 /min [facility] Schedule [facility] [place] [place] 07-27-2019 08:03-0500 Respiratory Rate 20 /min [facility] Schedule [facility] [place] 03-13-2019 08:02-0400 Body Temperature 96.69 [degF] [facility] Schedule [facility] [place] 03-13-2019 08:02-0400 BP Diastolic 83 mm[Hg] [facility]th[facility] Schedule [facility] [place] , [place] 03-13-2019 08:02-0400 BP Systolic 162 mm[Hg] Mthz Schedule [facility] , [place] 03-13-2019 08:02-0400 Pulse (Heart Rate) 74 /min [facility] [place] 03-13-2019 08:02-0400 Respiratory Rate 20 /min [facility] Schedule [facility] [place] 01-12-2019 08:03-0400 Body Temperature 96.91 [degF] [facility] [place] 01-12-2019 08:03-0400 BP Diastolic 87 mm[Hg] Mth[facility] Schedule [facility] [place] , [place] 01-12-2019 08:03-0400 BP Systolic 152 mm[Hg] [facility] [place] 01-12-2019 08:03-0400 Pulse (Heart Rate) 63 /min [facility] [place] 01-12-2019 08:03-0400 Respiratory Rate 20 /[facility] [employer] [place] , [place] Encounters Encounter Date Encounter Type Care Provider Facility Start: 06-20-2023 ambulatory Hudson Nicki ty:[facility] Start: 06-20-2023 End: 06-20-2023 Patient encounter procedure Hudson STEVENSON [facility] Start: 05-17-2023 End: 05-17-2023 ambulatory JORDAN DUNCAN Not Available Start: 05-12-2023 End: 05-13-[address] [facility] Start: 05-09-2023 End: 05-10-2023 ambulatory Hudson STEVENSON Facility:[facility] Start: 05-09-2023 End: 05-09-2023 Patient encounter procedure Hudson STEVENSON [facility] Start: 04-19-2023 End: 04-19-2023 ambulatory JORDAN DUNCAN Not Available Start: 04-08-2023 End: 04-08-2023 ambulatory [facility] Start: 04-04-2023 End: 04-05-2023 ambulatory Hudson STEVENSON Facility:[facility] Start: 04-04-2023 End: 04-04-2023 Patient encounter procedure Hudson STEVENSON [facility] Start: 03-07-2023 End: 03-08-2023 ambulatory Hudson STEVENSON Facility:[facility] Start: 02-08-2023 End: 02-09-2023 ambulatory JORDAN DUNCAN Facility:[facility] Start: 02-08-2023 End: 02-08-2023 Patient encounter procedure [facility] DUNCAN [facility] Start: 01-31-2023 ambulatory Hudson STEVENSON Facili ty:[facility] Start: 01-03-2023 End: 01-04-2023 ambulatory Hudson STEVENSON Facility:[facility] Start: 01-03-2023 End: 01-03-2023 Patient encounter procedure Hudson STEVENSON [facility] Start: 12-03-2022 End: 12-04-2022 ambulatory Hudson STEVENSON Facility:[facility] Start: 12-03-2022 End: 12-03-2022 Patient encounter procedure Hudson STEVENSON [facility] Start: 11-05-2022 End: 11-06-2022 ambulatory Hudson STEVENSON Facility:[facility] Start: 11-05-2022 End: 11-05-2022 Patient encounter procedure Hudson STEVENSON [facility] Start: 11-03-2022 End: 11-04-2022 ambulatory JUAN BOLIVARKADE [facility] Start: 11-03-2022 End: 11-03-2022 Subsequent hospital visit by physician Linus Med Onc Room 7 Schedule [facility] Comment on above: Polycythemia (Primar y Dx) Start: 10-29-2022 ambulatory Hudson STEVENSON Facili ty:[facility] Start: 10-25-2022 End: 10-26-2022 ambulatory ARNOLD PEOPLES Facility:[facility] Start: 10-05-2022 End: 10-06-[address] JORDAN DUNCAN . Facility:[facility] Start: 10-05-2022 End: 10-06-2022 ambulatory Hudson STEVENSON Facility:[facility] Start: 10-05-2022 End: 10-05-2022 Patient encounter procedure Hudson STEVENSON [facility] Start: 09-30-2022 End: 10-01-[address] HUDSON STEVENSON . Facility:[facility] Start: 09-27-2022 End: 09-28-2022 ambulatory ARNOLD PEOPLES Facility:[facility] Start: 09-20-2022 End: 09-21-2022 ambulatory ENEDINA HARGROVE Facility:[facility] Start: 09-20-2022 Encounter for preprocedural cardiovascular examination DR HUDSON STEVENSON . [facility] Start: 09-20-2022 Encounter for preprocedural laboratory examination DR HUDSON STEVENSON . [facility] Start: 09-20-2022 Encounter for preprocedural respiratory examination DR HUDSON STEVENSON . [facility] Start: 09-15-2022 End: 09-16-[address] HUDSON STEVENSON . Facility:[facility] Start: 09-15-2022 End: 09-16-2022 Encounter for preprocedural laboratory examination DR HUDSON STEVENSON . Facility:[facility] Start: 09-06-2022 End: 09-07-2022 ambulatory Hudson STEVENSON Facility:[facility] Start: 09-06-2022 End: 09-06-2022 Patient encounter procedure Hudson STEVENSON [facility] Start: 06-18-2022 End: 06-19-2022 ambulatory Hudson STEVENSON Facility:[facility] Start: 06-18-2022 End: 06-18-2022 Patient encounter procedure Hudson STEVENSON [facility] Start: 06-14-2022 End: 06-15-2022 ambulatory Hudson STEVENSON Facility:[facility] Start: 05-20-2022 End: 05-21-2022 ambulatory ENEDINA Schultz [facility] Facility:[facility]1 Start: 05-17-2022 End: 05-17-2022 Patient encounter procedure Hudson [facility]EVENSON [facility] Start: 04-21-2022 End: 04-22-2022 ambulatory ENEDINA Schultz [facility] Facility:[facility]1 Start: 04-21-2022 End: 04-21-2022 Patient encounter procedure Mandy Schaefer [facility] Start: 04-09-2022 End: 04-10-2022 ambulatory ENEDINA Schultz [facility] Facility:H1 Start: 03-31-2022 End: 03-31-2022 Patient encounter procedure Mandy Schaefer [facility] Start: 03-22-2022 End: 03-23-2022 ambulatory [facility] Facility:H1 Start: 03-03-2022 End: 03-03-2022 Patient encounter procedure Mandy Schaefer [facility] [employer] Start: 02-01-2022 End: 02-01-2022 Patient encounter procedure Hudson STEVENSON [facility] Start: 01-28-2022 End: 01-28-2022 Subsequent hospital visit by physician Lin[facility] Med Onc Lab Schedule [facility] Comment on above: Polycythemia (Primar y Dx) Start: 01-18-2022 End: 01-18-[address] JORDAN DUNCAN . Facility: Start: 01-06-2022 End: 01-07-2022 ambulatory [facility] Facility:H1 Start: 12-21-2021 End: 12-21-2021 Patient encounter procedure Hudson STEVENSON [facility] [employer] Start: 11-23-2021 End: 11-23-2021 Patient encounter procedure Hudson STEVENSON [facility] [employer] Start: 10-26-2021 End: 10-26-2021 Patient encounter procedure Hudson STEVENSON [facility] Start: 09-28-2021 End: 09-28-2021 Patient encounter procedure Hudson STEVENSON [facility] [employer] Start: 08-31-2021 End: 08-31-2021 Patient encounter procedure Hudson STEVENSON [facility] Start: 10-22-2020 End: 10-22-2020 Subsequent hospital visit by physician [facility] Med Onc Room 9 Schedule [facility] Comment on above: Polycythemia (Primar y Dx) Start: 07-27-2019 End: 07-27-2019 Subsequent hospital visit by physician [facility] Med Onc Room 9 Schedule [facility] Comment on above: Polycythemia (Primar y Dx) Start: 03-13-2019 End: 03-13-2019 Subsequent hospital visit by physician [facility] Med Onc Room 9 Schedule [facility] Comment on above: Polycythemia (Primar y Dx) Start: 01-12-2019 End: 01-12-2019 Subsequent hospital visit by physician [facility] Med Onc Room 9 [facility] Start: 02-16-2018 End: 02-17-2018 Patient encounter DEFAULT PHYSICIAN Facility:[facility] Procedures Date Procedure Procedure Detail Performing Clinician Start: 09-30-2022 Circumcision Hudson JENSEN Start: 05-23-2019 foot surgery Hudson JENSEN Start: 05-13-2014 History of placement of stent for coronary artery disease S/P JORY - LCX & RCA ([id number]. kabour) [facility] Schedule BACK SURGERY Hudson STEVENSON Placement of stent Hudson OSEGUERA RECTAL CANCER SURGERY Agustin STEVENSON RIGHT VEIN REMOVED F ROM LEG Hudson STEVENSON Plan of Treatment Date Care Activity Detail Author Start: 10-29-2023 GFR test (Diabetes, CKD 3-4, OR last GFR 15-59) GFR test (Diabetes, CKD 3-4, OR last GFR 15-59) [facility] Start: 10-26-2023 End: 10-26-2023 Patient encounter procedure 10/26/2023 Office Visit Oncology Juan Liu MD [address] [place] [address] [facility] Start: 10-20-2022 End: 10-20-2022 Patient encounter procedure 10/20/2022 Office Visit Oncology Juan Liu [facility] [address] [facility] [place] [address] [facility] Start: 09-24-2022 Hemoglobin A1c measurement A1C test (Diabetic or Prediabetic) [facility] Start: 02-04-2022 Influenza vaccination Flu vaccine (#1) [facility] Start: 11-11-2021 Urine screening for protein Diabetic microalbuminuria test [facility] Start: 10-21-2021 End: 10-21-2021 Patient encounter procedure 10/21/2021 Office Visit Oncology Juan Liu MD [address] [facility] [place] [address] [facility] Start: 10-16-2021 COVID-19 Vaccine (4 - Booster for Pfizer series) COVID-19 Vaccine (4 - Booster for Pfizer series) [facility] Start: 10-14-2021 Lipid panel Lipids [facility] Start: 10-24-2019 End: 10-24-[address] [facility] Start: 07-31-2019 End: 07-31-2019 Appointment 07/31/2019 Appointment Infusion Therapy [facility] Start: 04-30-2019 End: 04-30-2019 Appointment 04/30/2019 Appointment Infusion Therapy [facility] Start: 02-04-2019 Influenza vaccination Flu vaccine (#1) [place], [place] Start: 11-26-2018 Annual Wellness Visit (AWV) Annual Wellness Visit (AWV) [facility] Start: 08-17-2017 Creatinine measurement Creatinine monitoring [facility] [employer] Work Phone: Start: 08-17-2017 Creatinine monitoring Creatinine monitoring [place], [place] Start: 08-17-2017 Potassium monitoring Potassium monitoring [place], [place] Start: 08-04-2017 A1C test (Diabetic or Prediabetic) A1C test (Diabetic or Prediabetic) [place], [place] Start: 08-04-2017 Hemoglobin A1c measurement A1C test (Diabetic or Prediabetic) [facility] Start: 02-10-2017 Abdominal aortic aneurysm screening AAA screen [facility] Start: 02-10-2017 Pneumococcal 65+ years Vaccine (1 of 2 - PCV13) Pneumococcal 65+ years Vaccine (1 of 2 - PCV13) [place], [place] Start: 01-29-2017 Shingles Vaccine (2 of 3) Shingles Vaccine (2 of 3) [facility] Start: 02-10-2015 Annual Wellness Visit (AWV) Annual Wellness Visit (AWV) [place], [place] Start: 02-10-2002 Colon cancer screen colonoscopy Colon cancer screen colonoscopy [place], [place] Start: 02-10-2002 Screening for malignant neoplasm of colon Colon cancer screen colonoscopy [facility] Work Phone: Start: 02-10-2002 Shingles Vaccine (1 of 2) Shingles Vaccine (1 of 2) [place], [place] Start: 02-10-1997 Screening for malignant neoplasm of colon [facility] Start: 02-10-1971 DTaP/Tdap/Td vaccine (1 - Tdap) DTaP/Tdap/Td vaccine (1 - Tdap) [facility] Start: 02-10-1971 Hepatitis B vaccine (1 of 3 - Risk 3-dose series) Hepatitis B vaccine (1 of 3 - Risk 3-dose series) [place] Start: 02-10-1970 Diabetic microalbuminuria test Diabetic microalbuminuria test [place] Start: 02-10-1970 Diabetic retinal exam Diabetic retinal exam [facility] Start: 02-10-1970 Glaucoma screening Diabetic retinal exam [facility] Start: 02-10-1970 Hepatitis C screening Hepatitis C screen [facility] Start: 02-10-1970 Urine screening for protein Diabetic Alb to Cr ratio (uACR) test [facility] Start: 1964 Depression Screen Depression Screen [facility] Start: 02-10-1963 DTaP/Tdap/Td vaccine (1 - Tdap) DTaP/Tdap/Td vaccine (1 - Tdap) [place] Start: 02-10-1962 [object Object] Diabetic foot exam [place], [place] Start: 02-10-1962 Diabetic foot examination Diabetic foot exam [facility] [employer] Start: 02-10-1962 Diabetic retinal exam Diabetic retinal exam [place], [place] Start: 02-10-1962 Lipid panel [facility] Start: 02-10-1962 Lipid screen Lipid screen [place], [place] Start: 1950 Annual Wellness Visit (AWV) Annual Wellness Visit (AWV) [facility] Start: 1950 Hepatitis C screen Hepatitis C screen [place], [place] Start: 1950 Hepatitis C screening Hepatitis C screen [facility] Work Phone: Immunizations Immunization Date Immunization Notes Care Provider Shania durham 04-16-2022 influenza virus vacc ine, unspecified formulation Hudson STEVENSON [facility] 03-23-2022 SARS-CoV-2 (COVID-19 ) [id number] Hudson KERI [facility] 06-18-2021 SARS-CoV-2 (COVID-19 ) mRNA BNT-162b2 vax Hudson KERI [facility] 05-06-2021 influenza virus vacc ine, unspecified formulation Hudson STEVENSON [facility] 05-06-2021 SARS-CoV-2 (COVID-19 ) Ad26 vaccine, recombinant Hudson STEVENSON [facility] 08-28-2020 SARS-CoV-2 (COVID-19 ) mRNA BNT-162b2 vax Hudson KERI [facility] 08-08-2020 SARS-CoV-2 (COVID-19 ) mRNA BNT-162b2 vax Hudson STEVENSON [facility] Comment on above: Result Comment: 2022: [id number] 08-04-2020 SARS-CoV-2 (COVID-19 ) Ad26 vaccine, recombinant Hudson STEVENSON [facility] 03-22-2020 influenza virus vacc ine, unspecified formulation Hudson STEVENSON [facility] 03-06-2019 pneumococcal conjuga te vaccine, 13 valent Hudson STEVENSON [facility] 03-05-2019 influenza virus vacc ine, unspecified formulation Hudson STEVENSON [facility] 03-05-2019 pneumococcal polysaccharide vaccine, 23 valent Hudson STEVENSON [facility] 03-03-2018 influenza virus vacc ine, unspecified formulation Hudson STEVENSON [facility] 03-03-2018 pneumococcal conjuga te vaccine, 13 valent Hudson STEVENSON [facility] 04-06-2017 influenza virus vacc ine, unspecified formulation Hudson STEVENSON [facility] 12-04-2016 pneumococcal polysaccharide vaccine, 23 valent Hudson STEVENSON [facility] 12-04-2016 zoster vaccine, live Hudson STEVENSON [facility] 03-06-2016 Influenza Vaccine, unspecified formulation Mthz Schedule [facility] 03-06-2016 influenza, unspecifi ed formulation Hudson STEVENSON [facility] 01-23-2016 influenza virus vacc ine, unspecified formulation Hudson STEVENSON [facility] 06-06-2015 pneumococcal polysaccharide vaccine, 23 valent Hudson STEVENSON [facility] 03-23-2014 influenza virus vacc ine, unspecified formulation Hudson STEVENSON [facility] 04-06-2013 influenza virus vacc ine, unspecified formulation Hudson STEVENSON [facility] 04-06-2013 zoster vaccine, live [facility] of [facility] Payers Date Payer Category Payer Medicare xxxxxxxxxxx [id number] 1957 Medicare [id number] 1959 Private Health Insurance [employer] [facility] [id number] 1952 Unknown [id number] 2.16.84 0.1.845019.3.579.2.593 1952 Unknown [id number] 2.16.84 0.1.432579.3.579.2.593 1952 Unknown [id number] 2.16.84 0.1.173091.3.579.2.593 1952 Unknown [id number] 2.16.84 0.1.577533.3.579.2.593 1952 Unknown [id number] 2.16.84 0.1.054474.3.579.2.593 1952 Unknown [id number] 2.16.84 0.1.880196.3.579.2.593 1952 Unknown [id number] 2.16.84 0.1.869333.3.579.2.593 1952 Unknown [id number] 2.16.84 0.1.059960.3.579.2.593 1952 Unknown [id number] 2.16.84 0.1.270287.3.579.2.593 1952 Unknown [id number] 2.16.84 0.1.089590.3.579.2.593 1952 Unknown [id number] 2.16.84 0.1.053353.3.579.2.593 1952 Unknown [id number] 2.16.84 0.1.932399.3.579.2.593 1952 Unknown [id number] 2.16.8 40.1.053356.3.579.2.173 1952 Unknown [id number] 2.16.8 40.1.707468.3.579.2.173 1952 Unknown [id number] 2.16.840 .1.848872.3.579.2.1259 1952 Unknown [id number] 2.16.840. 1.792996.3.579.2.1259 1952 Unknown [id number] 2.16.8 40.1.350113.3.579.2.727 1952 Unknown [id number] 2.16.8 40.1.342861.3.579.2.727 1952 Unknown [id number] 2.16.8 40.1.867051.3.579.2.727 1952 Unknown [id number] 2.16.8 40.1.089808.3.579.2.727 1952 Unknown [id number] 2.16.8 40.1.446109.3.579.2.727 1952 Unknown [id number] 2.16.8 40.1.603318.3.579.2.727 1952 Unknown [id number] 2.16.8 40.1.718783.3.579.2.727 1952 Unknown [id number] 2.16.8 40.1.842585.3.579.2.727 1952 Unknown [id number] 2.16.8 40.1.137431.3.579.2.727 1952 Unknown [id number] 2.16.8 40.1.930488.3.579.2.727 1952 Unknown [id number] 2.16.8 40.1.105968.3.579.2.727 1952 Unknown [id number] 2.16.8 40.1.598450.3.579.2.727 1952 Unknown [id number] 2.16.8 40.1.530417.3.579.2.727 1952 Unknown [id number] 2.16.8 40.1.652355.3.579.2.727 1952 Unknown [id number] 2.16.8 40.1.230433.3.579.2.727 Medicare [id number] Unknown Social History Date Type Detail Facility Start: 10-18-2018 End: 11-05-2022 Tobacco smoking status NHIS Former smoker [place] End: 08-31-1999 History of tobacco use Current smoker [place] Start: 01-23-2014 End: 10-18-2018 Cigarettes smoked current (pack per day) - Reported [place] Start: 10-18-2018 Alcohol intake No [place], [place] Start: 01-23-2014 Tobacco Comment quit smoking in 1999 [place] Start: 1950 Sex Assigned At Not on file [place] Start: 10-18-2018 End: 10-21-2021 Alcohol intake Current non-drinker of alcohol (finding) [place] Start: 01-23-2014 End: 10-22-2020 Tobacco use and exposure Never used [facility] Start: 01-18-2022 End: 01-28-2022 Exposure to SARS-CoV-2 (event) Not sure [facility] End: 08-31-1999 History of tobacco use Cigarette Smoker KITTY QUIR[facility]Z [facility] Work Phone: Functional Status Date Assessment Result Facility 06-20-2023 Functional Status N/A [facility] 11-05-2022 Functional Status N/A [facility] 06-18-2022 Functional Status N/A [facility] 05-17-2022 Functional Status N/A [facility] 02-01-2022 Functional Status N/A [facility] Clinical Notes 10-22-2020 to 06-20-2023 Torie Lopez [...] therapy. Follow these instructions at home: Take uauv-uny-hywnwsv and prescription medicines only as told by [...] provider. Document Revised: 01/22/2021 Document Reviewed: 01/22/2021 [employer] Patient Education 2022 [employer]. Follow Up Care 02/08/2023 12:23:35 With:KERI NOLASCO, Hudson Ordoñez, URL Address: [facility] [address] , [place] [address] [phone] When: Unknown Comments:6 mos w/ PSA and T level (pt to also get PSA now) [facility] 04-08-2023 Note [facility] Subjective Juan Miguel Jennings is a [...] man with prior history of CAD, s/p CA and stenting procedures in the past. He [...] Pravastatin Other Rosuvastatin (more content not included)... [facility] 11-05-2022 Hospital Discharge instructions Patient Education [...] urethra. Follow these instructions at home: Take ofvl-khc-ewogxtg and prescription medicines only as told by [...] provider. Document Revised: 12/09/2021 Document Reviewed: 12/09/2021 [employer] Patient Education 2022 [employer]. Follow Up Care 05/17/2022 10:46:35 With:KERI NOLASCO, Hudson Ordoñez, URL Address: [facility] [address] , [place] [address]- When: Unknown [facility] 11-03-2022 History of Present illness Narrative Patient [...] for visit documented in this encounter [facility] [facility] Work Phone: 09-15-2022 Note EXAM: XR CHEST 2 V HISTORY: Pre-surgery evaluation COMPARISON: None. TECHNIQUE: PA and lateral views of the chest. FINDINGS: The cardiomediastinal silhouette is normal. No focal consolidation is identified. There is no pneumothorax. No pleural effusion is noted. The osseous structures are intact. IMPRESSION: No acute cardiopulmonary process. Electronically authenticated by: DARRIUS BOLTON Date: 2022-09-15 12:26 [facility] 06-18-2022 Hospital Discharge instructions Patient Education 06/18/2022 [...] urethra. Follow these instructions at home: Take bkmz-lgn-qcvradt and prescription medicines only as told by [...] 05/23/2006 Document Revised: 04/17/2019 Document Reviewed: 06/27/2017 [employer] Patient Education 2020 [employer]. Follow Up Care 06/14/2022 09:33:13 With:KERI NOLASCO, Hudson Ordoñez, URL Address: [address] [place], [place] [phone]- When: Unknown [facility] 05-17-2022 Hospital Discharge instructions Patient Education 05/17/2022 [...] urethra. Follow these instructions at home: Take tbib-jpi-sxcjbqw and prescription medicines only as told by [...] 05/23/2006 Document Revised: 04/17/2019 Document Reviewed: 06/27/2017 [employer] Patient Education 2020 [employer]. Follow Up Care 04/21/2022 09:42:50 With:KERI NOLASCO, Hudson Ordoñez, URL Address: [facility] [address] , [place] [address]- When: Unknown [facility] 03-23-2022 Note PROCEDURE: XR FOOT R T [...] authenticated by: BRODY PAYAN Date: 2022-03-23 06:26 [facility] 02-01-2022 Hospital Discharge instructions Patient Education 02/01/2022 [...] urethra. Follow these instructions at home: Take jngg-vkc-txgqtrb and prescription medicines only as told by [...] 05/23/2006 Document Revised: 04/17/2019 Document Reviewed: 06/27/2017 [employer] Patient Education 2019 [employer]. Follow Up Care 08/03/2021 15:20:11 With:KERI NOLASCO, Hudson Ordoñez, URL Address: [address] [place] [address]- When: Unknown [facility] 10-22-2020 History of Present illness Narrative 1225 [...] ambulating without complaints [facility] Evaluation + Plan note Future Appointments Appointment Date:09/28/2021 09:00:00 AM Scheduled Provider: Location:[facility] Appointment Type:URO Nurse Visit Appointment Date:02/01/2022 09:45:00 AM Scheduled Provider:Hudson STEVENSON MD Location:[facility] Appointment Type:URO Office Visit [facility] Evaluation + Plan note Future Appointments Appointment Date:10/26/2021 09:00:00 AM Scheduled Provider: Location:[facility] Appointment Type:URO Nurse Visit Appointment Date:02/01/2022 09:45:00 AM Scheduled Provider:Hudson STEVENSON MD Location:[facility] Appointment Type:URO Office Visit [facility] [employer] Evaluation + Plan note Future Appointments Appointment Date:11/23/2021 09:00:00 AM Scheduled Provider: Location:[facility] Appointment Type:URO Nurse Visit Appointment Date:02/01/2022 09:45:00 AM Scheduled Provider:Hudson STEVENSON MD Location:[facility] Appointment Type:URO Office Visit [facility] Evaluation + Plan note Future Appointments Appointment Date:12/21/2021 09:00:00 AM Scheduled [facility] Type[facility] Nurse Visit Appointment Date:02/01/2022 09:45:00 AM Scheduled Provider:[facility] STEVENSON [facility] Type[facility] Office Visit [facility] [employer] Evaluation + Plan note Future Appointments Appointment Date:02/01/2022 09:45:00 AM Scheduled Provider:Hudson STEVENSON MD Location:[facility] Appointment Type:URO Office Visit Diagnostic Tests PendingTestosterone Level Total 12/21/21 [facility] Evaluation + Plan note Future Appointments Appointment Date:03/01/2022 09:30:00 AM Scheduled Provider: Location:[facility] Appointment Type:URO Nurse Visit Diagnostic Tests PendingTestosterone Level Total 04/06/22PSA Total 03/06/22 [facility] Evaluation + Plan note Future Appointments Appointment Date:03/31/2022 08:15:00 AM Scheduled Provider: Location:[facility] Appointment Type:URO Nurse Visit [facility] Evaluation + Plan note Future Appointments Appointment Date:04/21/2022 09:15:00 AM Scheduled Provider: Location:[facility] Appointment Type:URO Nurse Visit [facility] Evaluation + Plan note Future Appointments Appointment Date:05/19/2022 08:00:00 AM Scheduled Provider:Mandy Schaefer MD Location:[facility] Appointment Type:URO Office Visit Diagnostic Tests PendingPSA Total 04/16/22Testosterone Level Total 04/16/22 [facility] [employer] Evaluation + Plan note Future Appointments Appointment Date:06/14/2022 09:00:00 AM Scheduled Provider: Location:[facility] Appointment Type:URO Nurse Visit Appointment Date:11/15/2022 08:45:00 AM Scheduled Provider:Hudson STEVENSON MD [facility] Type:[facility] Office Visit Diagnostic Tests PendingPSA Total 05/17/22Testosterone Level Total 05/17/22 [facility] Evaluation + Plan note Future Appointments Appointment Date:09/06/2022 09:00:00 AM Scheduled Provider: Location:[facility] Appointment Type:URO Nurse Visit Appointment Date:11/15/2022 08:45:00 AM Scheduled Provider:Hudson STEVENSON MD Location:[facility] Appointment Type:URO Office Visit [facility] Evaluation + Plan note Future Appointments Appointment Date:10/05/2022 09:00:00 AM Scheduled Provider: Location:[facility] Appointment Type:URO Nurse Visit Appointment Date:10/29/2022 08:45:00 AM Scheduled Provider:Hudson STEVENSON MD Location:[facility] Appointment Type:URO Office Visit Appointment Date:11/05/2022 09:45:00 AM Scheduled Provider:Hudson STEVENSON MD Location:[facility] Appointment Type:URO Office Visit [facility] Evaluation + Plan note Future Appointments Appointment Date:11/05/2022 09:45:00 AM Scheduled Provider:Hudson STEVENSON MD Location:[facility] Appointment Type:URO Office Visit [facility] Evaluation + Plan note Future Appointments Appointment Date:12/03/2022 09:15:00 AM Scheduled Provider: Location:[facility] Appointment Type:URO Nurse Visit Diagnostic Tests PendingTestosterone Level Total 11/05/22PSA Total 11/05/22 [facility] Evaluation + Plan note Future Appointments Appointment Date:01/03/2023 08:15:00 AM Scheduled Provider: Location:[facility] Appointment Type:URO Nurse Visit [facility] Evaluation + Plan note Future Appointments Appointment Date:01/31/2023 08:45:00 AM Scheduled Provider: Location:[facility] Appointment Type:URO Nurse Visit [facility] Evaluation + Plan note Future Appointments Appointment Date:03/07/2023 08:45:00 AM Scheduled Provider[facility] Type:[facility] Nurse Visit Appointment Date:04/04/2023 08:45:00 AM Scheduled Provider: [facility] Type:[facility]O Nurse Visit Appointment Date:05/02/2023 08:45:00 AM Scheduled Provider: [facility] Type:[facility]O Nurse Visit Appointment Date:05/27/2023 09:45:00 AM Scheduled Provider:Hudson STEVENSON MD [facility] Type[facility] Office Visit [facility] Evaluation + Plan note Future Appointments Appointment Date:05/02/2023 08:45:00 AM Scheduled Provider: Location:[facility] Appointment Type:URO Nurse Visit Appointment Date:06/20/2023 10:30:00 AM Scheduled Provider:Hudson STEVENSON MD [facility] Type:[facility]O Office Visit [facility] Evaluation + Plan note Future Appointments Appointment Date:06/20/2023 10:30:00 AM Scheduled Provider:Hudson STEVENSON MD Location:[facility] Appointment Type:URO Office Visit Diagnostic Tests PendingTestosterone Level Total 05/09/23 [facility] Evaluation + Plan note Future Appointments Appointment Date:07/18/2023 09:30:00 AM Scheduled Provider: Location:[facility] Appointment Type:URO Nurse Visit Diagnostic Tests PendingPSA Total 06/20/23Testosterone Level Total 06/20/23 [facility] Evaluation note Diagnosis Polycythemia- Primary Polycythemia vera documented in this encounter [employer] Phone: evaluation note* Diagnosis Polycythemia- Primary Polycythemia vera documented in this encounter KITTY QUIROZ [employer] Phone: Hospital course Narrative No data available for this section [facility] Hospital Discharge instructions No data available for this section [facility] progress note No data available for this section [facility] Summary Purpose Family History No Family History [...] Documents on File Type Date Recorded Patient Press Maintainer Expl anation Advance Directives and Livin g Will Advance Directives and Livin g Will 08/31/2013 9:46 AM Power of Critical Care Registered Nurse Power of Critical Care Registered Nurse 08/31/2013 9:46 AM Latest Code Status on File Code Status Date Activated Date Inactivated Comments Full Code 08/06/2016 9:06 AM 08/09/2016 5:53 PM Full Code 08/04/2016 9:28 PM 08/06/2016 9:06 AM Full Code 05/15/2015 12:42 PM 05/19/2015 6:52 PM Full Code 05/12/2015 11:22 AM 05/15/2015 12:42 PM Full Code 05/13/2014 2:36 PM 05/13/2014 9:20 PM Documents on File Type Date Recorded Patient Press Maintainer Expl anation ACP-Advance Directive ACP-Power of Critical Care Registered Nurse ACP-Advance Directive 08/31/2013 9:46 AM ACP-Power of Critical Care Registered Nurse 08/31/2013 9:46 AM Documents on File Type Date Recorded Patient Press Maintainer Expl anation ACP-Advance Directive 08/31/2013 9:46 AM ACP-Power of Critical Care Registered Nurse 08/31/2013 9:46 AM Latest Code Status on [...] section and content) DATE CREATED AUTHOR 11/24/2017 [facility] DATE CREATED AUTHOR AUTHOR'S ORGANIZ ATION 03/15/2018 [facility] DATE CREATED AUTHOR AUTHOR'S ORGANIZ ATION 07/01/2021 [facility] DATE CREATED AUTHOR AUTHOR'S ORGANIZ ATION 09/26/2021 [facility] dical Specialist DATE CREATED AUTHOR AUTHOR'S ORGANIZ ATION 11/13/2022 [facility] DATE CREATED AUTHOR AUTHOR'S ORGANIZ ATION 04/09/2023 [facility] DATE CREATED AUTHOR AUTHOR'S ORGANIZ ATION 04/28/2023 [facility] DATE CREATED AUTHOR AUTHOR'S ORGANIZ ATION 05/14/2023 [facility] DATE CREATED AUTHOR AUTHOR'S ORGANIZ ATION 05/19/2023 [facility] d[facility] Specialists EPIC DATE CREATED AUTHOR AUTHOR'S ORGANIZ ATION 06/02/20[address] Jonathan Mchugh [facility] Care Team (unrecognized sect ion and content) Personnel Name: JORDAN DUNCAN MD Address: Address: [address] [place] [address] Director Of Regional Sales Relationship Specialty Start Date End Date Jordan [...] BE BASED ON THE PRIMARY CLINICAL RECORDS. [employer] provides no warranty or guarantee of the accuracy or completeness of information in this document.
== END 2023-07-15 10:28 | disposition home or self-care (01) ==
LOC: WC 10:27
PROVIDERS: PCP Internal Medicine Interventional Cardiology; Visit Provider Podiatrist Foot & Ankle Surgery
DX: E11.621 Type 2 diabetes mellitus with foot ulcer (principal); L97.412 Non-pressure chronic ulcer of right heel and midfoot with fat layer exposed; L84 Corns and callosities
CPT/HCPCS: 11055

== ENCOUNTER 2023-09-16 11:45 | Outpatient (OUT) | payer MEDICARE, SELFPAY | END 2023-09-16 11:46 | disposition home or self-care (01) | LOC: WC 11:45 | PROVIDERS: PCP Internal Medicine Interventional Cardiology; Visit Provider Podiatrist Foot & Ankle Surgery | DX: E11.621 Type 2 diabetes mellitus with foot ulcer (principal); L97.422 Non-pressure chronic ulcer of left heel and midfoot with fat layer exposed | CPT/HCPCS: 11042; G0463 ==

== ENCOUNTER 2023-09-30 09:16 | Outpatient (OUT) | payer MEDICARE, SELFPAY ==
--- OUTSIDE RECORDS SUMMARY | 2023-09-30 09:28 | XMS_ITS | CCD ---
Author Organization [facility] Care Team Providers Care Store Team Member Name Role Phone PHYSICIAN, DEFAULT Unavailable Unavailable PHYSICIAN, DEFAULT Unavailable Unavailable Diego Bartlett Primary Care Provider [phone] Jordan Duncan Primary Care Provider Jordan Duncan MD Primary Care Provider JORDAN DUNCAN Primary Care Physician [phone] Jordan Duncan MD Primary Care Provider JORDAN DUNCAN Primary Care Physician Unavail able Jordan Duncan MD Primary Care Provider ENEDINA BOSS Attending Unavailable HEMEYER ., DR ALATORRE Primary Care Unavailable ENEDINA BOSS Admitting Unavailable ENEDINA BOSS Admitting Unavailable ENEDINA BOSS Attending Unavailable HEMEYER ., DR ALATORRE Primary Care Unavailable ENEDINA BOSS Admitting Unavailable ENEDINA BOSS Attending Unavailable HEMEYER ., DR ALATORRE Primary Care Unavailable ORA, DR BRODY Ordoñez Consulting Unavailable ENEDINA BOSS Consulting Unavailable ENEDINA BOSS Admitting Unavailable ENEDINA BOSS Attending Unavailable HEMEYER ., DR ALATORRE Primary Care Unavailable ARNOLD PEOPLES Attending Unavailable ARNOLD PEOPLES Admitting Unavailable HEMEYER ., DR ALATORRE Primary Care Unavailable HEMEENOC ., DR ALATORRE Primary Care Unavailable ENEDINA BOSS Attending Unavailable ENEDINA BOSS Admitting Unavailable ARNOLD PEOPLES Admitting Unavailable ARNOLD PEOPLES Attending Unavailable HEMEYER ., DR ALATORRE Primary Care Unavailable KERI ., DR OBANDO Consulting Unavailable STEVENSON ., DR OBANDO Attending Unavailable STEVENSON ., DR OBANDO Admitting Unavailable HEMEYER ., DR ALATORRE Primary Care Unavailable CHANI YARBROUGH II Consulting Unavailable MATEO VILLALOBOS Consulting Unavailable HEMEYER ., DR ALATORRE Primary Care Unavailable HEMEYER ., DR ALATORRE Consulting Unavailable HEMEYER ., DR ALATORRE Attending Unavailable HEMEYER ., DR ALATORRE Admitting Unavailable STEVENSON ., DR OBANDO Consulting Unavailable STEVENSON ., DR OBANDO Attending Unavailable HEMEYER ., DR ALATORRE Primary Care Unavailable STEVENSON ., DR OBANDO Admitting Unavailable DARRIUS BOLTON Consulting Unavailable ENEDINA BOSS Attending Unavailable ENEDINA BOSS Admitting Unavailable HEMEYER ., DR ALATORRE Primary Care Unavailable ENEDINA BOSS Attending Unavailable ENEDINA BOSS Admitting Unavailable HEMEYER ., DR ALATORRE Primary Care Unavailable ANUJA DENTON Attending Unavailable NEWTON LIU Referring Unavailable DAKOTA, JORDAN Brown Primary Care Unavailable HEMEYER, JORDAN Brown Primary Care Unavailable WILLI SANCHEZ Referring Unavailable Hemeyer Jordan NOLASCO Primary Care Provider Mitch Mello MD Unavailable Jr. Anuja Henson DO Unavailable Alexandria DALAL, Brody Xiao Unavailable STEVENSON, Topher R Attending Unavailable STEVENSON, Topher R Attending Unavailable STEVENSON, Topher R Attending Unavailable STEVENSON, Topher R Attending Unavailable STEVENSON, Topher R Attending Unavailable STEVENSON, Topher R Attending Unavailable STEVENSON, Topher R Attending Unavailable STEVENSON, Topher R Attending Unavailable STEVENSON, Topher R Attending Unavailable STEVENSON, Topher R Attending Unavailable STEVENSON, Topher R Attending Unavailable STEVENSON, Topher R Attending Unavailable STEVENSON, Topher R Attending Unavailable HEMEYER, JORDAN Brown Attending Unavailable STEVENSON, Topher R Attending Unavailable STEVENSON, Topher R Attending Unavailable RUSHER, BRODY Xiao Attending Unavailable RUSHER, BRODY Xiao Attending Unavailable HEMEYER, JORDAN Brown Attending Unavailable HEMEYER, JORDAN Brown Attending Unavailable Allergies Allergy Classification Reported Allergen(s) Allergy Type Date of Onset Reaction(s) Facility (4 sources) Clindamycin/Linc omycin Propensity to adverse reactions to drug 8 Diarrhea [place], [place] (2 sources) Clindamycin Drug Allergy 2 [facility] (3 sources) glipiZIDE; 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: [GLIPIZIDE] Drug Allergy 2 Diarrhea [facility] [facility]: (5 sources) metFORMIN; 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: [METFORMIN] Drug Allergy 2 Diarrhea, Unknown [facility] Phone: (5 sources) Pravastatin; 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: [PRAVASTATIN] Drug Allergy 2 Unknown [employer] Phone: (3 sources) rosuvastatin; 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: [ROSUVASTATIN] Drug Allergy 2 [employer] [facility]: (2 sources) Clindamycin; 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: [CLINDAMYCIN] Drug Allergy 7 [facility] (1 source) glipiZIDE Drug Allergy 7 [facility] (1 source) metFORMIN Drug Allergy 7 [facility] (3 sources) ezetimibe; 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: [EZETIMIBE] Drug Allergy 2 Unknown [facility] Rep[facility] (2 sources) Clindamycin Drug Allergy 2 Diarrhea [facility] (2 sources) glipiZIDE Drug Allergy 2 Diarrhea, Unknown [facility] (2 sources) Rosuvastatin calcium Allergy to substance 1 Unknown [facility] Medications Current Medications Medication Drug Class(es) Dates Sig (Normalized) Sig (Original) aspirin 81 mg delayed release oral tablet (20 sources) Platelet Aggregation Inhibitor, Nonsteroidal Anti-inflammatory Drug Start: 04-19-2023 take 1 tablet by mouth in the morning aspirin 81 MG EC tablet Indications: Arteriosclerosis of coronary artery (CMS/HCC) Take 1 tablet (81 mg) by mouth in the morning. 0 04/19/2023 Active Start: 01-01-2019 take 1 mg by mouth once daily aspirin 81 mg oral tablet mg tab(s), Oral, Daily, Refills(s) 0 Start Date: 01/01/19 Status: Ordered B Complex Vitamins (VITAMIN B COMPLEX PO) (8 sources) take 1 tablet by piper th in the morning B Complex Vitamins (VITAMIN B COMPLEX PO) Take 1 tablet by mouth in the morning. 0 Active B Complex Vitami ns (VITAMIN B COMPLEX PO) Take by mouth daily 0 Active B Complex Vitami ns (VITAMIN B COMPLEX PO) Take by mouth. 0 Active Simbrinza (20 sources) Carbonic Anhydrase Inhibitor, alpha-Adrenergic Agonist Start: 01-01-2019 take 1 drop(s) into the eye(s) twice daily Simbrinza drop(s), Eye-Both, BID, Refill(s) 0 Start Date: 01/01/19 Status: Ordered Simbrinza 1-0.2 % suspension every 8 (eight) hours. 0 Active brinzolamide-latia monidine 1-0.2 % SUSP Apply to eye 3 times daily 0 Active cholecalciferol 0.05 mg oral tablet (8 sources) Vitamin D cholecalciferol (Vitamin D-3) 50 MCG (1999 UT) tablet Take by mouth. 0 Active Cholecalciferol (VITAMIN D3) 50 MCG (2000 UT) TABS Take by mouth daily 0 Active Cholecalciferol (VITAMIN D3) 3000 UNITS TABS Take by mouth daily 0 Active Cholecalciferol (VITAMIN D3) 3000 UNITS TABS Take by mouth. 0 Active cyclobenzaprine hydrochloride 10 mg oral tablet (6 sources) Muscle Relaxant Start: 04-19-2023 take 1 tablet by mouth three times daily as needed for muscle spasms cyclobenzaprine 10 mg Tab 10 mg = 1 tab(s), Oral, TID, PRN for spasm, # 30 tab(s), Refills(s) 0 Start Date: 06/20/23 Status: Ordered diclofenac sodium 75 mg delayed release oral tablet (6 sources) Nonsteroidal Anti-inflammatory Drug Start: 05-17-2023 End: 08-15-2023 diclofenac sodium 75 mg Oral EC Tab [...] 07-27-2018 take 1 drop(s) into the eye(s) at bedtime latanoprost (Xalatan) 0.005 % ophthalmic solution INSTILL 1 DROP INTO BOTH EYES AT BEDTIME Ophthalmic for 90 Days 0 07/27/2018 Active Start: 07-27-2018 take 1 drop(s) into the [...] (20 sources) Angiotensin 2 Receptor Justice Start: 04-19-2023 End: 10-16-2023 take 1 tablet by mouth in the morning losartan (Cozaar) 50 MG tablet Indications: Essential hypertension (CMS/HCC) Take 1 tablet (50 mg) by mouth in the morning. 90 tablet 1 04/19/2023 10/16/2023 Active Start: 09-29-2021 take 1 tablet by piper th once daily losartan (COZAAR) 50 MG tablet TAKE 1 TABLET BY MOUTH EVERY DAY FOR 90 DAYS 0 09/29/2021 Active Start: 02-25-2020 losartan 100 m g Tab Refills(s) 0 Start Date: 02/25/20 Status: Ordered take 2 tablets by mo uth once daily losartan (COZAAR) 25 MG tablet Take 50 mg by mouth daily 0 Active Metoprolol (12 sources) beta-Adrenergic Justice Start: 06-20-2023 METOPR OLOL TARTRATE 100 MG TAB METOPROLOL TARTRATE 100 MG TAB Start Date: 06/20/23 Status: Ordered Start: 04-20-2023 End: 10-17-2023 take 1.5 tablets by mouth every twenty-four hours in the morning metoprolol succinate XL (Toprol XL) 100 MG 24 hr tablet Indications: Atherosclerosis of torres martinez coronary artery of torres martinez heart without angina pectoris (CMS/HCC) Take 1.5 tablets (150 mg) by mouth in the morning. Do not crush or chew.. 135 tablet 1 04/20/2023 10/17/2023 Active take 2 tablets by mo uth twice daily in the evening metoprolol (TOPROL-XL) 25 MG XL tablet Take 2 tablets by mouth 2 times daily 100mg in the am, 50mg in the pm 0 Active Multiple Vitamin (MULTIVITAMIN ADULT PO) (1 source) Multiple Vitamin (MULTIVITAMIN ADULT PO) Take by mouth 0 Active Multiple Vitamin (multivitamin) capsule (2 sources) take 1 capsule by mouth in the morning Multiple Vitamin (multivitamin) capsule Take 1 capsule by mouth in the morning. 0 Active netarsudil 0.2 mg/ml ophthalmic solution (4 sources) Rho Kinase Inhibitor Start: 07-21-19 take 1 drop(s) into the eye(s) once daily Rhopressa 0.02 % solution INSTILL 1 DROP INTO LEFT EYE EVERY NIGHT Ophthalmic for 30 0 07/21/2021 Active niacin 500 mg oral tablet (4 sources) Nicotinic Acid Start: 04-19-20 23 End: 04-18-20 24 take 2 tablets by mouth in the evening niacin 500 MG tablet Indications: Mixed hyperlipidemia (CMS/HCC) Take 2 tablets (1,000 mg) by mouth in the evening. 180 tablet 0 04/19/2023 04/18/2024 Active take 1 tablet by mouth twice pablo ly niacin 500 MG tablet Take 500 mg by mouth 2 times daily 0 Active 24 hr oxybutynin chloride 5 mg extended release oral tablet (20 sources) Cholinergic Muscarinic Antagonist Start: 09-08-2017 take 1 tablet by mouth once daily oxybutynin 5 mg ER Tab 5 mg = 1 tab(s), Oral, Daily, # 90 tab(s), Refills(s) 3, Pharmacy: [facility]/pharmacy #[id number], 198, cm, 11/05/22 10:14:00 EDT, Height/Length Dosing, 150, kg, 11/05/22 10:14:00 EDT, Weight Dosing Start Date: 05/26/23 Status: Ordered pioglitazone 30 mg oral tablet (20 sources) Peroxisome Proliferator Receptor alpha Agonist, Peroxisome Proliferator Receptor gamma Agonist, Thiazolidinedione Start: 04-19-2023 End: 10-16-2023 take 1 tablet by mouth in the morning pioglitazone (Actos) 30 MG tablet Indications: Type 2 diabetes mellitus with diabetic polyneuropathy, without long-term current use of insulin (CMS/HCC) Take 1 tablet (30 mg) by mouth in the morning. 90 tablet 1 04/19/2023 10/16/2023 Active Start: 02-25-2020 pioglitazone 4 5 mg Tab Refills(s) 0 Start Date: 02/25/20 Status: [facility] pioglitazone (ACTOS) 30 MG tablet Take 1 [...] Active tamsulosin hydrochloride 0.4 mg oral capsule (15 sources) alpha-Adrenergic Justice Start: 05-26-2023 take 1 capsule by mouth once daily tamsulosin 0.4 mg Cap 0.4 mg = 1 cap(s), Oral, Daily, # 90 cap(s), Refills(s) 3, Pharmacy: [facility]/pharmacy #[id number], 198, patti, 11/05/22 10:14:00 EDT, Height/Length Dosing, 150, kg, 11/05/22 10:14:00 EDT, Weight Dosing Start Date: 05/26/23 Status: Ordered Start: 06-18-2022 take 1 capsule by [facility] once daily tamsulosin 0.4 mg Cap 0.4 mg = 1 cap(s), Oral, Daily, # 90 cap(s), Refills(s) 3, Pharmacy: [facility]/pharmacy #[id number], 198, cm, 06/18/22 9:10:00 EST, Height/Length Dosing, 164, kg, 06/18/22 9:10:00 EST, Weight Dosing Start Date: 06/18/22 Status: Ordered take 1 capsule by [facility] every twenty-four hours at bedtime tamsulosin (Flomax) 0.4 MG 24 hr capsule Take 0.4 mg by mouth at bedtime 0 Active 1 ml testosterone cypionate 200 mg/ml injection (8 sources) Androgen Start: 07-12-2017 testosterone c ypionate (DEPOTESTOTERONE CYPIONATE) 200 MG/ML injection Inject 1 mL into the muscle. Once a month 4 07/12/2017 Active testosterone cypionate 200 mg/mL IM Richelle (12 sources) Start: 06-20-2023 testosterone c ypionate 200 mg/mL IM Richelle 450 mg, IntraMuscular, q4wk, # 10 mL, Refills(s) 1, Pharmacy: [facility]/pharmacy #[id number], 198, cm, 06/20/23 11:05:00 EST, Height/Length Dosing, 149, kg, 06/20/23 11:05:00 EST, Weight Dosing Start Date: 06/20/23 Status: Ordered Start: 05-09-2023 testosterone c ypionate 200 mg/mL IM Richelle 400 mg, IntraMuscular, q4wk, # 10 mL, Refills(s) 1, Pharmacy: [facility]/pharmacy #[id number], 198, cm, 11/05/22 10:14:00 EDT, Height/Length Dosing, 150, kg, 11/05/22 10:14:00 EDT, Weight Dosing Start Date: 05/09/23 Status: Ordered Start: 02-08-2023 testosterone c ypionate 200 mg/mL IM Richelle 400 mg, IntraMuscular, q4wk, # 10 mL, Refills(s) 2, Pharmacy: [facility]/pharmacy #[id number], 198, cm, 11/05/22 10:14:00 EDT, Height/Length Dosing, 150, kg, 11/05/22 10:14:00 EDT, Weight Dosing Start Date: 02/08/23 Status: Ordered Start: 08-27-2022 testosterone c ypionate 200 mg/mL IM Richelle 400 mg, IntraMuscular, q4wk, # 10 mL, Refills(s) 2, Pharmacy: [facility]/pharmacy #[id number], 198, cm, 06/18/22 9:10:00 EST, Height/Length Dosing, 164, kg, 06/18/22 9:10:00 EST, Weight Dosing Start Date: 08/27/22 Status: Ordered testosterone cypionate 200 mg/mL intramuscular solution (17 sources) Start: 02-01-2022 testosterone c ypionate 200 mg/mL intramuscular solution 400 mg = 2 mL, IntraMuscular, q4wk, 400mg once a month, # 10 mL, Refills(s) 3, [id number], 198, cm, 02/01/22 9:53:00 EDT, Height/Length Dosing, 166, kg, 02/01/22 9:53:00 EDT, Weight Dosing Start Date: 02/01/22 Status: Ordered Start: 11-23-2021 testosterone c ypionate 200 mg/mL intramuscular solution 350 mg, IntraMuscular, q4wk, # 10 mL, Refills(s) 1, Pharmacy: [facility]/pharmacy #[id number], 198, cm, 08/03/21 14:37:00 EST, Height/Length Dosing, 166, kg, 08/03/21 14:37:00 EST, Weight Dosing Start Date: 11/23/21 Status: Ordered Start: 08-03-2021 testosterone c ypionate 200 mg/mL intramuscular solution 350 mg, IntraMuscular, q4wk, # 10 mL, Refills(s) 1, [id number], 198, cm, 08/03/21 14:37:00 EST, Height/Length Dosing, 166, kg, 08/03/21 14:37:00 EST, Weight Dosing Start Date: 08/03/21 Status: Ordered timolol 0.005 mg/mg ophthalmic gel (8 sources) beta-Adrenergic Justice Start: 05-23-2014 apply 1 drop(s) into the eye(s) once daily timolol (TIMOPTIC-XE) 0.5 % ophthalmic gel-forming Place 1 drop into both eyes daily 3 05/23/2014 Active take 1 drop(s) into the eye(s) at bedtime timolol (Timoptic) 0.25 % ophthalmic solution Administer 1 drop into both eyes at bedtime 0 Active Completed/Discontinued Medications Medication Drug Class(es) Dates Sig (Normalized) Sig (Original) Fish Oils (1 source) End: 01-12-2019 FISH OIL by Does not apply route daily 0 01/12/2019 Discontinued (Therapy completed) Problems Active Problems Problem Classification Problem Date Documented Da te Episodic/Chronic Acquired foot deformities (5 sources) Hallux rigidus, right foot; 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: [Acquired hallux malleus] Onset: 05-03-2022 01-11-2023 Chronic Acquired foot deformities (1 source) Other [...] anus, unspecified] Onset: 03-15-2012 08-04-2016 Chronic Chronic kidney disease (2 sources) Chronic kidney disease stage 2; 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: [Chronic kidney disease, stage 2 (mild)] Onset: 11-15-2019 01-11-2023 Chronic Coronary atherosclerosis and other heart disease (20 sources) Coronary arteriosclerosis; 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: [Atherosclerotic heart disease of torres martinez coronary artery without angina pectoris] Onset: 04-08-2017 Resolved: 01-13-2023 02-19-2019 Chronic Coronary atherosclerosis and other heart disease (6 sources) History of placement of stent for coronary artery disease; 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: [Presence of coronary angioplasty implant and graft] Onset: 05-13-2014 05-13-2014 Episodic Diabetes mellitus with complications (20 sources) Diabetic peripheral neuropathy; 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: [Type 2 diabetes mellitus with diabetic polyneuropathy] Onset: 08-04-2016 Resolved: 05-17-2023 08-04-2016 Chronic Diabetes mellitus without complication (20 sources) Type 2 diabetes mellitus; 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: [Type 2 diabetes mellitus with other diabetic neurological complication] Onset: 08-04-2016 Resolved: 05-17-2023 08-04-2016 Chronic Disorders of lipid metabolism (19 sources) Hyperlipidemia; 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: [Hyperlipidemia, unspecified] Onset: 05-13-2014 05-13-2014 Chronic Essential hypertension (20 sources) Hypertensive disorder; 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: [Essential (primary) hypertension] Onset: 05-13-2014 08-04-2016 Chronic Genitourinary symptoms and ill-defined conditions (20 sources) Increased frequency of urination; 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: [Nocturia] Onset: 11-15-2019 Resolved: 05-17-2023 01-01-2019 Episodic Glaucoma (20 sources) Open-angle glaucoma; 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: [Unspecified open-angle glaucoma, stage unspecified] Onset: 01-11-2023 Resolved: 01-13-2023 02-19-2019 Chronic Hyperplasia of prostate (20 sources) Benign prostatic hypertrophy with outflow obstruction; 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: [Benign prostatic hyperplasia with lower urinary tract symptoms] Onset: 02-01-2022 09-08-2020 Chronic Mycoses (6 sources) Tinea unguium; 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: [Onychomycosis due to dermatophyte ] Onset: 04-15-2022 Episodic Open wounds of extremities (4 sources) Amputated foot; 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: [Complete traumatic amputation of unspecified foot, level unspecified, initial encounter] Onset: 09-18-2020 01-11-2023 Chronic Osteoarthritis (4 sources) Osteoarthritis of knee; 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: [Osteoarthritis of knee, unspecified] Onset: 02-25-2021 Resolved: 01-13-2023 01-11-2023 Chronic 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 (1 source) 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) use of anticoagulants; 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: [LONGTERM CURRNT USE ANTICOAGULANTS] Onset: 10-12-2022 Episodic 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 (1 source) longterm (current) use of aspirin; 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: [ROAD PACKER OPERATOR CURRENT USE OF ASPIRIN] Onset: 10-12-2022 Episodic 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 (1 source) longterm (current) use of oral hypoglycemic drugs; 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: [ROAD PACKER OPERATOR USE ORAL HYPOGLYCEMIC DX] Onset: 10-12-2022 Episodic 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 (1 source) Other extermination supervisor (current) drug therapy; 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: [OTH ROAD PACKER OPERATOR CURRENT DRUG THERAPY] Onset: 09-20-2022 Episodic Other circulatory disease (1 source) Other specified peripheral vascular diseases; 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: [OTH SPEC PERIPHERAL VASC DISEASES] Onset: 05-03-2022 Chronic Other connective tissue disease (1 source) Presence of artificial knee joint, bilateral; 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: [PRESENCE ARTIFICIAL KNEE JNT BILAT] Onset: 10-12-2022 Chronic Other connective tissue disease (2 sources) Artificial knee joint present; 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: [Presence of artificial knee joint, bilateral] Onset: 05-25-2021 05-17-2023 Chronic Other endocrine disorders (14 sources) Disorder of pituitary gland; 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: [Disorder of pituitary gland, unspecified] Onset: 08-31-2021 Chronic Other endocrine disorders (20 sources) Hypogonadism 01-01-2019 Chronic Other endocrine disorders (20 sources) Male hypogonadism; 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: [Testicular hypofunction] Onset: 01-11-2023 01-01-2019 Chronic Other endocrine disorders (5 sources) Testicular hypofunction; 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: [Testicular hypofunction] Onset: 12-21-2021 Chronic Other endocrine disorders (1 source) Testicular hypofunction; 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: [TESTICULAR HYPOFUNCTION] Onset: 10-12-2022 Chronic Other gastrointestinal disorders (20 sources) H/O: liver disease 11-05-2019 Episodic Other liver diseases (2 sources) Steatosis of liver; 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: [Fatty (change of) liver, not elsewhere classified] Onset: 04-08-2017 01-11-2023 Chronic Other male genital disorders (20 sources) Impotence 01-01-2019 Chronic Other male genital disorders (20 sources) Phimosis; 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: [Phimosis] Onset: 05-17-2022 Resolved: 01-13-2023 Episodic Other male genital disorders (5 sources) Phimosis; 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: [PHIMOSIS] Onset: 09-20-2022 Episodic Other nervous system disorders (2 sources) Difficulty walking; 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: [Difficulty in walking, not elsewhere classified] Onset: 05-26-2021 01-11-2023 Chronic Other nervous system disorders (4 sources) Chronic pain; 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: [Other chronic pain] Onset: 12-25-2020 Resolved: 01-13-2023 01-13-2023 Chronic Other nutritional; endocrine; and metabolic disorders (8 sources) Morbid obesity; 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: [Morbid (severe) obesity due to excess calories] Onset: 08-05-2016 08-05-2016 Chronic Other screening for suspected conditions (not mental disorders or infectious disease) (20 sources) Patient encounter status; 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: [Encounter for screening for malignant neoplasm of colon] Onset: 02-12-2014 Resolved: 04-03-2018 04-03-2018 Episodic Other skin disorders (1 source) Dystrophia unguium; 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: [Nail dystrophy] 07-19-2023 Episodic Other skin disorders (1 source) Acquired keratoderma; 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: [Acquired keratosis [keratoderma] palmaris et plantaris] 07-19-2023 Episodic Residual codes; unclassified (8 sources) Obstructive sleep apnea syndrome; 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: [Obstructive sleep apnea (adult) (pediatric)] Onset: 10-01-2015 08-04-2016 Chronic Residual codes; unclassified (20 sources) Sleep apnea 02-19-2019 Chronic Residual codes; unclassified (1 source) Sleep apnea, unspecified; 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: [SLEEP APNEA UNSPECIFIED] Onset: 10-12-2022 Chronic Residual codes; unclassified (2 sources) Obstructive sleep apnea (adult) (pediatric); 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: [Obstructive sleep apnea (adult) (pediatric)] Onset: 04-08-2023 Chronic Residual codes; unclassified (2 sources) Dependence on enabling machine or device; 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: [Dependence on other enabling machines and devices] Onset: 03-04-2021 01-11-2023 Chronic Residual codes; unclassified (20 sources) H/O: anticoagulant therapy; 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: [Personal history of other drug therapy] Onset: 01-11-2023 01-01-2019 Episodic Residual codes; unclassified (1 source) [...] [Other acquired deformities of left foot] Onset: 05-03-20 Episodic Chronic ulcer of skin (6 sources) Non-pressure chronic ulcer of other part of right foot with fat layer exposed; 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: [Non-pressure chronic ulcer of left heel and midfoot limited to breakdown of skin] Onset: 01-14-20 Resolved : 01-14-2001-13-2023 Chronic E Codes: Adverse effects of medical drugs (2 sources) HMG COA reductase inhibitor adverse reaction; 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: [Adverse effect of antihyperlipidemic and antiarteriosclerotic drugs, initial encounter] Onset: 09-11-19 21 01-11-2023 Episodic Infective arthritis and osteomyelitis (except that caused by tuberculosis or sexually transmitted disease) (9 sources) Acute osteomyelitis of metatarsal; 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: [Other acute osteomyelitis, right ankle and foot] Onset: 08-06-19 Resolved : 01-14-2008-05-2016 Chronic Joint disorders and dislocations; trauma-related (2 sources) Derangement of left knee; 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: [Unspecified internal derangement of left knee] Onset: 01-24-20 Resolved : 01-14-2001-13-2023 Chronic Mood disorders (2 sources) Mood disorders Onset: 05-17-2005-17-2023 Other connective tissue disease (2 sources) History of total knee arthroplasty; 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: [Presence of left artificial knee joint] Onset: 06-03-20 Resolved : 05-17-20 23 05-17-2023 Chronic Other connective tissue disease (1 source) Pain in left foot; 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: [PAIN IN LEFT FOOT] Onset: 05-25-20 Episodic Other connective tissue disease (1 source) Plantar fascial fibromatosis; 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: [PLANTAR FASCIAL FIBROMATOSIS] Onset: 04-15-20 Episodic Other connective tissue disease (4 sources) Pain in right foot; 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: [PAIN IN RIGHT FOOT] Onset: 03-22-20 Episodic Other endocrine disorders (2 sources) Hypotestosteronism; 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: [Endocrine disorder, unspecified] Onset: 04-08-20 17 01-11-2023 Episodic Other gastrointestinal disorders (2 sources) Chronic constipation; 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: [Other constipation] Onset: 01-12-20 23 01-11-2023 Episodic Other hematologic conditions (13 sources) Erythrocytosis; 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] Onset: 04-05-20 14 04-05-2014 Episodic Other hematologic conditions (1 source) Secondary polycythemia; 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] Onset: 04-05-20 14 Episodic Other lower respiratory disease (1 source) Other specified respiratory disorders; 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: [OTHER SPEC RESPIRATORY DISORDERS] Onset: 01-20-20 Episodic Other nervous system disorders (2 sources) Drug-induced myopathy; 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: [Drug-induced myopathy] Onset: 11-01-19 21 01-11-2023 Episodic Other skin disorders (1 source) Nail dystrophy; 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: [NAIL DYSTROPHY] Onset: 05-25-20 Episodic Other skin disorders (5 sources) Corns and callosities; 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: [CORNS AND CALLOSITIES] Onset: 05-03-20 Episodic Other skin disorders (2 sources) Foot callus; 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: [Corns and callosities] Onset: 09-24-19 21 01-11-2023 Episodic Residual codes; unclassified (5 sources) History of cardiac catheterization; 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: [Other specified postprocedural states] Onset: 05-13-20 Resolved : 01-14-2005-13-2014 Episodic Residual codes; unclassified (1 source) Pain, unspecified; 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: [PAIN UNSPECIFIED] Onset: 01-20-20 Episodic Screening and history of mental health and substance abuse codes (2 sources) Ex-smoker; 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: [Personal history of nicotine dependence] Onset: 07-13-19 18 01-11-2023 Episodic Skin and subcutaneous tissue infections (8 sources) Cellulitis and abscess of toe; 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: [Cellulitis of right toe] Onset: 08-05-19 Resolved : 01-14-2008-05-2016 Episodic Unclassified (3 sources) Patient encounter status; 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: [Screening for colorectal cancer] Onset: 02-13-20 14 Resolved : 04-03-20 18 04-03-2018 Unclassified (1 source) CONTACT W/AND (SUSP) EXPOS COVID-19; 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: [CONTACT W/AND (SUSP) EXPOS COVID-19] Onset: 01-19-20 Results Test Name Value Interpretation Reference Range Facil ity Ambulatory Visit Summaryon 0 09-09-2023 Ambulatory Visit Summary JUAN MIGUEL JENNINGS :1950 Visit Date:09/09/2023 Ambulatory Visit Instructions Your Diagnosis Hypogonadism Your Care Team Attending Physician - KERI NOLASCO, Topher Ordoñez Primary Care Physician - DAKOTA NOLASCO, JORDAN Brown This Is Your Medications List Misc Prescription (METOPROLOL TARTRATE 100 MG TAB) aspirin (aspirin 81 mg oral tablet) brimonidine-brinzolami de ophthalmic (Simbrinza) cyclobenzaprine (cyclobenzaprine 10 mg Tab) diclofenac (diclofenac sodium 75 mg Oral EC Tab) empagliflozin (Jardiance 25 mg oral tablet) glipiZIDE latanoprost ophthalmic (latanoprost Opth 0.005% Richelle) losartan (losartan 100 mg Tab) oxybutynin (oxybutynin 5 mg ER Tab) pioglitazone (pioglitazone 45 mg Tab) tamsulosin (tamsulosin 0.4 mg Cap) testosterone (testosterone cypionate 200 mg/mL IM Richelle) Procedures Performed Circumcision (09/30/2022), foot surgery (05/23/2019), BACK SURGERY, RECTAL CANCER SURGERY, RIGHT VEIN REMOVED FROM LEG, Stent placement. What to do next Scheduled Follow-Up Appointments Tuesday. 2023 8:30 AM EDT Where: [facility] Lab Reportson 07-15-2023 Lab Reports [id number]#[id number] [facility] Lab Reports [id number]#1.0 0TIFF [facility] Ambulatory Visit Summaryon 0 06-20-2023 Ambulatory Visit Summary JUAN MIGUEL JENNINGS :1950 Visit Date:06/20/2023 Ambulatory Visit Instructions Your Diagnosis Hypogonadism male Elevated PSA BPH with urinary obstruction Phimosis Urinary urgency Tests Performed Urnls Dip Stick Auto w/o Microscopy POC 81925 Your Care Team Attending Physician - KERI NOLASCO, Topher Ordoñez Primary Care Physician - DAKOTA NOLASCO, JORDAN Brown This Is Your Medications List oxybutynin (oxybutynin 5 mg ER Tab) tamsulosin (tamsulosin 0.4 mg Cap) testosterone (testosterone cypionate 200 mg/mL IM Richelle) Contact prescribing physician if questions or concerns Misc Prescription (METOPROLOL TARTRATE 100 MG TAB) aspirin (aspirin 81 mg oral tablet) brimonidine-brinzolami de ophthalmic (Simbrinza) cyclobenzaprine (cyclobenzaprine 10 mg Tab) diclofenac (diclofenac sodium 75 mg Oral EC Tab) empagliflozin (Jardiance 25 mg oral tablet) glipiZIDE latanoprost ophthalmic (latanoprost Opth 0.005% Richelle) losartan (losartan 100 mg Tab) pioglitazone (pioglitazone 45 mg Tab) Procedures Performed Circumcision (09/30/2022), foot surgery (05/23/2019), BACK SURGERY, RECTAL CANCER SURGERY, RIGHT VEIN REMOVED FROM LEG, Stent placement. Discharge Vitals Heart Rate (Peripheral) 70 Respiratory Rate 16 Blood Pressure 139/86 Height 198 cm Height 78 in Weight 149 kg Weight 327.8 lb BMI 38.01 What to do next Scheduled Follow-Up Appointments Tuesday 9:30 AM EST Where: [facility] Patient Educationon 06-20-19 24 Patient Education Urology Hypogonadism, Male Male hypogonadism is a condition of having a level of testosterone that is lower than normal. Testosterone is a chemical, or hormone, that is made mainly in the testicles. In boys, testosterone is responsible for the development of male characteristics during puberty. These include: ? Making the penis bigger. ? Growing and building the muscles. ? Growing facial hair. ? Deepening the voice. In adult men, testosterone is responsible for maintaining: ? An interest in sex and the ability to have sex. ? Muscle mass. ? Sperm production. ? Red blood cell production. ? Bone strength. Testosterone also gives men energy [...] the causes? This condition is caused by: ? A natural decrease in testosterone that occurs as a man grows older. This is the main cause of this condition. ? Use of medicines, such as antidepressants, steroids, and opioids. ? Diseases and conditions that affect the testicles or the making of testosterone. These include: ? Injury or damage to the testicles from trauma, cancer, cancer treatment, or infection. ? Diabetes. ? Sleep apnea. ? Genetic conditions that men are born with. ? Disease of the pituitary gland. This gland is in the brain. It produces hormones. ? Obesity. ? Metabolic syndrome. This is a group of diseases that affect blood pressure, blood sugar, cholesterol, and belly fat. ? HIV or AIDS. ? Alcohol abuse. ? Kidney failure. ? Other long-term or chronic diseases. What are the signs or symptoms? Common symptoms of this condition include: ? Loss of interest in sex (low sex drive). ? Inability to have or maintain an erection (erectile dysfunction). ? Feeling tired (fatigue). ? Mood changes, like irritability or depression. ? Loss of muscle and body hair. ? Infertility. ? Large breasts. ? Weight gain (obesity). How is this diagnosed? Your health care provider can diagnose hypogonadism based on: ? Your signs and symptoms. ? A physical exam to check your testosterone [...] replacement therapy. Testosterone can be given by: ? Injection or through pellets inserted under the skin. ? Gels or patches placed on the skin or in the mouth. Testosterone therapy is not for everyone. It has risks and side effects. Your health care provider will consider your medical history, your risk for prostate cancer, your age, and your symptoms before putting you on testosterone replacement therapy. Follow these instructions at home: ? Take jzwj-fuo-wwacbxd and prescription medicines only as told by your health care provider. ? Eat foods that are high in fiber, such as beans, whole grains, and fresh fruits and vegetables. Limit foods that are high in fat and processed sugars, such as fried or sweet foods. ? If you drink alcohol: ? Limit how much you have to 0?2 drinks a day. ? Know how much alcohol is in your drink. In the [place] one drink equals one 12 oz bottle of beer (355 mL), one 5 oz glass of wine (148 mL), or one 1? oz glass of hard liquor (44 mL). ? Return to your normal activities as told by your health care provider. Ask your health care provider what activities are safe for you. ? Keep all follow-up visits. This is important. Contact a health care provider if: ? You have any of the signs or symptoms of low testosterone. ? You have any side effects from testosterone therapy. Summary ? Male hypogonadism is a condition of having a level of testosterone that is lower than normal. ? The natural drop in testosterone production that occurs with age is the most common cause of this condition. ? Low testosterone can also be caused by many diseases and conditions that affect the testicles and the making of testosterone. ? This condition is treated with testosterone replacement therapy. ? There are risks and side effects of [...] health care provider. Document Revised: 01/22/2021 Document (more content not included)... Normal [facility] Urology Office/Clinic Noteon 06-20-2023 Urology Office/Clinic Note Chief Complaint elevated PSA and hypogonadism HPI Staff 73 yo male here for 6 month f/u with Testosterone and PSA. Previous Dx: elevated PSA, BPH with obstruction, hypogonadism, phimosis, urgency. No recent PSAs on [facility]. Most recent PSA 10/20/22 - 0.44. S/p circumcision 09/30/22. Taking Tamsulosin 0.4mg qd and Oxybutynin 5mg qd. Receiving Testosterone 400mg IM inj q4wks. Testosterone level 05/23/23 - 278. Dysuria: no Incomplete bladder emptying: no Hematuria: no Frequency: every couple of hours Urgency: no Nocturia: 1x Stream: good steady Leaking: no Post void dripping:no Wearing pads/ Depends: no Urge incontinence: no Stress incontinence: no Incontinence without Sensory Awareness: no Abdominal pain: no Flank pain: no Sexual complaints: no History of Present Illness Tests reviewed: reviewed UA, T level I have reviewed the previous health record information and history for this patient from Dr. Stevenson. I have reviewed and verified the staff HPI to be accurate for this encounter. Review of Systems PHQ Score Initial Depression Screen Score: 0 SCORE ROS - Provider Constitutional: denies weight loss, [...] HPI. Physical Exam Vitals & Measurements HR: 70(Peripheral) RR: 16 BP: 139/86 HT: 78 in HT: 198 cm WT: 149 kg WT: 327.8 lb BMI: 38.01 General Appearance: alert, no distress, well nourished, well developed male. Genitourinary: normal scrotum, normal testes, normal urethra, normal epididymis, normal vas deferens/spermatic cord. Flank Pain: none. Bladder: nonpalpable. Prostate: normal prostate, estimated weight 30 gms, no hard nodule observed. Assessment/Plan 1. Hypogonadism male (E29.1: Testicular hypofunction) Testosterone Levels: 01/11/22 - 144 05/05/22 - 323 10/20/22 - 321 10/28/22 - HGB 17.7. HCT 50.2. 05/23/23 - 278 (ref range 250 - 827) Receiving Testosterone 400mg IM inj q4wks. Discussed T level. Has decreased from prior. Discussed increasing Testosterone dosage to stabilize T levels into normal range. Pt to get Testosterone 450mg inj today. -Increase Testosterone from 400mg to 450mg IM inj q4wks. -T level in 6 mos 2. Elevated PSA (R97.20: Elevated prostate specific antigen [PSA]) PSA: 01/11/22 - 0.22 05/05/22 - 0.11 10/20/22 - 0.44 SHEREEN: 30gms, benign Pt was to get PSA done at time of T level but the lab states they were not given PSA order. Pt to get PSA done now given prior elevation. -PSA now and in 6 mos 3. BPH with urinary obstruction (N40.1: Benign prostatic hyperplasia with lower urinary tract symptoms) Taking Tamsulosin 0.4mg qd. UA today negative for blood and infection. Good stream. States he gets up 1x/night to void, was not getting up at all before. Feels this is related to his sleep apnea. Denies any bothersome urinary habits. 4. 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 5. Urinary urgency (R39.15: Urgency of urination) Taking Oxybutynin 5mg qd. Works well. Denies SEs. Follow-up With When Contact Information Topher STEVENSON MD, URL [facility] [address], [place] [address] [phone] Additional Instructions: 6 mos w/ PSA and T level (pt to also get PSA now) Patient Education Hypogonadism, Male I, Erica Marin, personally scribed for Dr. Stevenson on 06/20/2023 11:26:15. . Documentation recorded by the scribe, Erica Marin, accurately reflects the services(s) I performed and decisions made by me. Authenticated by Dr. Stevenson on 06/20/2023 11:28:12. 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 Medications aspirin 81 mg oral tablet, Oral, Daily cyclobenzaprine 10 mg Tab, 10 mg= 1 tab(s), Oral, TID, PRN diclofenac sodium 75 mg Oral EC Tab glipiZIDE, 10 mg, Oral, Daily Jardiance 25 mg oral tablet, Oral, qAM latanoprost Opth 0.005% Richelle losartan 100 mg Tab METOPROLOL TARTRATE 100 MG TAB, 0 oxybutynin 5 mg ER Tab, 5 mg= 1 tab(s (more content not included)... Normal [facility] Comment on above: Result Comment: Elec tronically Signed By: Topher STEVENSON MD\.br\Date and Time Signed: 06/20/23 11:28 EST\.br\Electronically Co-Signed By: Erica Marin\.br\Date and Time Co-Signed: 06/20/23 11:26 EST Lab Report[facility] 05-31-2023 Lab Reports [id number]#1.0 0TIFF Normal [facility] CBC W/AUTO DIFFon 04-26-2023 ABS NEUTROPHILS [...] Inc Comment on above: Result Comment: Pathology [facility] [address] [place] [address] CLIA No. [id number] CAP Accreditation No. [id number] History Card Clerk: Shaunna Dee M.D. Platelets (Bld) [#/Vol] 125 10*3/uL Low 130-400 [facility] RBC (Bld) [#/Vol] 5.17 10*6/uL Normal 4.50-6.10 [facility] WBC (Bld) [#/Vol] 5.9 10*3/uL Normal 3.5-11.0 [facility] COMPREHENSIVE METABOLIC PANE L WITH [...] [facility] Office Visiton 04-08-2023 Follow-up visit [id number] Juan Miguel Jennings 1950 M Date Provider Department Center 04/08/2023 AllisonISAIASALTAGRACIAANUJA [facility] Family History Problem Relation Age of Onset Heart disease Mother Heart disease Father Family Status - Relation Status Age at Mother Father Level of Service:43014 IA OFFICE/OUTPATIENT ESTABLISHED MOD MDM 30-39 MIN Normal [facility] Medication Consenton 023 Medication Consent [id number]#1.0 0TIFF Normal [facility] Ambulatory Visit Summaryon 1 Ambulatory Visit Summary JUAN MIGUEL JENNINGS :1950 Visit Date:04/04/2023 Ambulatory Visit Instructions Your Diagnosis Hypogonadism Your Care Team Attending Physician - KERI NOLASCO, Topher Ordoñez Primary Care Physician - DAKOTA NOLASCO, JORDAN Brown This Is Your Medications List aspirin (aspirin 81 mg oral tablet) brimonidine-brinzolami de ophthalmic (Simbrinza) empagliflozin (Jardiance 25 mg oral [...] AM EST With: Where: [facility] Normal [address] [facility] [place] [address]- \.br\ Medications\.br \ What How Much When Instructions\.b r\ Unchanged aspirin (aspirin 81 mg oral tablet) By Mouth Every day\.br\ Unchanged brimonidine-latia nzolamide ophthalmic (Simbrinza) Both eyes 2 times a [...] Intramuscular Every 4 weeks\.br\ Medications and Immunizations Administered\.b r\ Given\.br\ Depo-Testostero ne 200 mg/mL intramuscular solution, 400 mg, IntraMuscular. 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 Ambulatory Visit Summaryon 1 Ambulatory Visit Summary JUAN MIGUEL JENNINGS :1950 Visit Date:03/07/2023 Ambulatory Visit Instructions Your Diagnosis Hypogonadism Your Care Team Attending Physician - Topher STEVENSON MD Primary Care Physician - JORDAN DUNCAN MD This Is Your Medications List aspirin (aspirin 81 mg oral tablet) brimonidine-brinzolami de ophthalmic (Simbrinza) empagliflozin (Jardiance 25 mg oral [...] AM EDT With: Where: [facility] Invalid Interpretation Code [address] [place] [address]- \.br\ Tuesday 9:45 AM EST \.br\ With: Topher STEVENSON MD\.br\ Where: [facility] Ambulatory Visit Summaryon 0 02-08-2023 Ambulatory Visit Summary JUAN MIGUEL JENNINGS :1950 Visit Date:02/08/2023 Ambulatory Visit Instructions Your Diagnosis Hypogonadism Your Care Team Attending Physician - JORDAN DUNCAN MD Primary Care Physician - JORDAN DUNCAN MD This Is Your Medications List aspirin (aspirin 81 mg oral tablet) brimonidine-brinzolami de ophthalmic (Simbrinza) empagliflozin (Jardiance 25 mg oral [...] AM EDT With: Where: [facility] Invalid Interpretation Code [address] [place] [address]- \.br\ Tuesday 8:45 AM EST \.br\ With:\.br\ Where: [facility] Ambulatory Visit Summaryon 0 01-03-2023 Ambulatory Visit Summary JUAN MIGUEL JENNINGS :1950 Visit Date:01/03/2023 Ambulatory Visit Instructions Your Diagnosis Hypogonadism Your Care Team Attending Physician - KERI NOLASCO, Topher Ordoñez Primary Care Physician - DAKOTA NOLASCO, JORDAN Brown This Is Your Medications List aspirin (aspirin 81 mg oral tablet) brimonidine-brinzolami de ophthalmic (Simbrinza) empagliflozin (Jardiance 25 mg oral [...] Tuesday 8:45 AM EDT Where: [facility] Normal [facility] Lab Reportson 11-08-2022 Lab Reports [id number]#1.0 0CD:127 [facility] Ambulatory Visit Summaryon 0 11-05-2022 Ambulatory Visit Summary JUAN MIGUEL JENNINGS :1950 Visit Date:11/05/2022 Ambulatory Visit Instructions Your Diagnosis Elevated PSA BPH with urinary obstruction Hypogonadism Phimosis Urinary urgency Tests Performed Urnls Dip Stick Auto w/o Microscopy POC 15969 Your Care Team Attending Physician - KERI NOLASCO, Topher Ordoñez Primary Care Physician - DAKOTA NOLASCO, JORDAN Brown This Is Your Medications List oxybutynin (oxybutynin 5 mg ER Tab) tamsulosin (tamsulosin 0.4 mg Cap) testosterone (testosterone cypionate 200 mg/mL IM Richelle) Contact prescribing physician if questions or concerns aspirin (aspirin 81 mg oral tablet) brimonidine-brinzolami de ophthalmic (Simbrinza) empagliflozin (Jardiance 25 mg oral [...] 9:15 AM EDT Where: [facility] Patient Educationon 11-06-19 23 Patient Education Urology Benign Prostatic Hyperplasia Benign [...] Follow these instructions at home: ? Take pyjb-bxe-yuhxkhk and prescription medicines only as told by [...] the medicine (more content not included)... Normal [facility] Screenson 11-05-2022 Screens [id number]. 00CD:127 Normal [facility] Urology Office/Clinic Noteon 11-05-2022 Urology Office/Clinic [...] mg QD. 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 Normal [facility] Comment on above: Result Comment: Elec tronically Signed By: KERI NOLASCO, Topher Ordoñez\.br\Date and Time Signed: 11/05/22 10:55 EDT\.br\Electronically Co-Signed [...] Inc Comment on above: Result Comment: [facility] [address] [place] [address] CLIA No. [id number] CAP Accreditation No. [id number] History Card Clerk: Shaunna Dee M.D. Platelets (Bld) [#/Vol] 105 10*3/uL Low 130-400 [facility] RBC (Bld) [#/Vol] 5.27 10*6/uL Normal 4.50-6.10 [facility] WBC (Bld) [#/Vol] 6.9 10*3/uL Normal 3.5-11.0 [facility] COMPREHENSIVE METABOLIC PANE L WITH [...] [facility] Lab Reportson 10-21-2022 Lab Reports [id number]#1.0 0CD:127 Normal [facility] Ambulatory Visit Summaryon 0 10-05-2022 Ambulatory Visit Summary JUAN MIGUEL JENNINGS Stephanie :1950 Visit Date:10/05/2022 Ambulatory Visit Instructions Your Care Team Attending Physician - KERI NOLASCO, Topher Ordoñez Primary Care Physician - DAKOTA NOLASCO, JORDAN Brown This Is Your Medications List aspirin (aspirin 81 mg oral tablet) brimonidine-brinzolami de ophthalmic (Simbrinza) empagliflozin (Jardiance 25 mg oral [...] Tuesday 9:45 AM EDT With: KERI NOLASCO, Topher Ordoñez Where: [facility] Pathology Noteon 10-05-2022 Pathology Note [id number] 0CD:127 [facility] Operative Reporton Operative Report [id number] 0CD:127 Normal [facility] Consultation Noteon 10-01-19 23 Consultation Note [id number] 0CD:127 [facility] POINT OF CARE GLUCOSEon 09-05 Glucose [Mass/Vol] 112 mg/dL Critically high 74-106 [facility] Comment on above: Performed By: #### P OCGLUC #### [facility] [address] [place] [address] Dr. Patria Sanders Formson 09-28-2022 Forms [id number]#1.0 0CD:127 Normal [facility] Formson 09-27-2022 Forms [id number]#1.0 0CD:127 [facility] Formson 09-21-2022 Forms [id number]#1.0 0CD:127 Normal [facility] ECG 12-Leadon 09-20-2022 ECG 12-Lead [id number]#1.0 0CD:127 [facility] Lab Reportson 09-20-2022 Lab Reports [id number]#1.0 0CD:127 [facility] RAD - MISCon 09-20-2022 RAD - MISC [id number]#1.0 0CD:127 [facility] CBC AUTO DIFFon 09-15-2022 BASO # 0.0 103/ul Normal 0.0-0.1 [facility] Comment on above: Performed By: #### C BC #### [facility] [address] [place] [address] Dr. Patria Sanders Basophils/100 WBC (Bld) 0.5 % Normal 0.2-2.0 [facility] Comment on above: Performed By: #### C BC #### [facility] [address] [place] [address] Dr. Patria Sanders EO # 0.3 103/ul Normal 0.0-0.7 [facility] Comment on above: Performed By: #### C BC #### [facility] [address] [place] [address] Dr. Patria Sanders Eosinophils/100 WBC (Bld) 3.2 % Normal 0.9-7.0 [facility] Comment on above: Performed By: #### C BC #### [facility] [address] [place] [address] Dr. Patria Sanders Erythrocyte distribution width (RBC) [Ratio] 14.5 % Normal 11.0-15.0 [facility] Comment on above: Performed By: #### C BC #### [facility] [address] [place] [address] Dr. Patria Sanders Hematocrit (Bld) [Volume fraction] 49.0 % Normal 42.0-54.0 [facility] Comment on above: Performed By: #### C BC #### [facility] [address] [place] [address] Dr. Patria Sanders Hemoglobin (Bld) [Mass/Vol] 16.7 g/dL Normal 14.0-18.0 [facility] Comment on above: Performed By: #### C BC #### [facility] [facility] [address] [place] [address] Dr. Patria Sanders IG # 0.03 10e3/ul Normal 0.00-0.03 [facility] Comment on above: Performed By: #### C BC #### [facility] [address] [place] [address] Dr. Patria Sanders IG % 0.4 % Normal 0.0-0.5 [facility] Comment on above: Performed By: #### C BC #### [facility] [address] [place] [address] Dr. Patria Sanders LYMPH # 1.1 103/ul Critically low 1.2-3.8 [facility] Comment on above: Performed By: #### C BC #### [facility] [address] [place] [address] Dr. Patria Sanders Lymphocytes/100 WBC (Bld) 14.5 % Critically low 20.5-60.0 [facility] Comment on above: Performed By: #### C BC #### [facility] [address] [place] [address] Dr. Patria Sanders MANUAL DIFF REQ NO Normal [facility] Comment on above: Performed By: #### C BC #### [facility] [address] [place] [address] Dr. Patria Sanders MCH (RBC) [Entitic mass] 32.6 pg Normal 25.9-34.0 [facility] Comment on above: Performed By: #### C BC #### [facility] [address] [place] [address] Dr. Patria Sanders MCHC (RBC) [Mass/Vol] 34.1 g/dL Normal 29.9-35.2 [facility] Comment on above: Performed By: #### C BC #### [facility] [address] [place] [address] Dr. Patria Sanders MCV (RBC) [Entitic vol] 95.5 fL Critically high 80.0-94.0 [facility] Comment on above: Performed By: #### C BC #### [facility] [address] [place] [address] Dr. Patria Sanders MONO # 0.8 103/ul Normal 0.3-0.8 [facility] Comment on above: Performed By: #### C BC #### [facility] [address] [place] [address] Dr. Patria Sanders Monocytes/100 WBC (Bld) 9.6 % Normal 1.7-12.0 [facility] Comment on above: Performed By: #### C BC #### [facility] [address] [place] [address] Dr. Patria Sanders NEUT # 5.6 103/ul Normal 1.4-6.5 [facility] Comment on above: Performed By: #### C BC #### [facility] [address] [place] [address] Dr. Patria Sanders Neutrophils/100 WBC (Bld) 71.8 % Normal 43.0-75.0 [facility] Comment on above: Performed By: #### C BC #### [facility] [address] [place] [address] Dr. Patria Sanders Platelet mean volume (Bld) [Entitic vol] 11.6 fL Normal 9.5-13.5 [facility] Comment on above: Performed By: #### C BC #### [facility] [address] [place] [address] Dr. Patria Sanders PLT 154 103/ul Normal 150-450 [facility] Comment on above: Performed By: #### C BC #### [facility] [address] [place] [address] Dr. Patria Sanders RBC 5.13 106/ul Normal 4.70-6.10 [facility] Comment on above: Performed By: #### C BC #### [facility] [address] [place] [address] Dr. Patria Sanders WBC 7.8 103/ul Normal 4.0-11.0 [facility] Comment on above: Performed By: #### C BC #### [facility] [address] [place] [address] Dr. Patria Sanders PROF CHEM 8 (BAS METB)on Anion gap [Moles/Vol] 11.4 mmol/L Normal [facility] Comment on above: Performed By: #### B MP #### [facility] [address] [place] [address] Dr. Patria Sanders Calcium [Mass/Vol] 9.1 mg/dL Normal 8.5-10.1 [facility] Comment on above: Performed By: #### B MP #### [facility] [address] [address] [address] Patria Sanders Chloride [Moles/Vol] 104 mmol/L Normal 98-107 [facility] Comment on above: Performed By: #### B MP #### [facility] [address] [address] [address] Patria Sanders CO2 [Moles/Vol] 28.7 mmol/L Normal 21.0-32.[address] [facility] Comment on above: Performed By: #### B MP #### [facility] [address] [address] [address] Patria Sanders Creatinine [Mass/Vol] 0.80 mg/dL Normal 0.70-1.30 [facility] Comment on above: Performed By: #### B MP #### [facility] [address] [place] [address] Dr. Patria Sanders EGFR-AF SIERRA LEONEAN >60 Normal >=[address] [facility] Comment on above: Performed By: #### B MP #### [facility] [address] [address] [address] Patria Sanders EGFR-NON AF SIERRA LEONEAN >60 Normal >=60 [facility] Comment on above: Performed By: #### B MP #### [facility] [address] [place] [address] Dr. Patria Sanders Glucose [Mass/Vol] 101 mg/dL Normal 74-106 [facility] Comment on above: Performed By: #### B MP #### [facility] [address] [address] [address] Patria Sanders Potassium [Moles/Vol] 4.1 mmol/L Normal 3.5-5.1 [facility] Comment on above: Performed By: #### B MP #### [facility] [address] [address] [address] Patria Sanders Sodium [Moles/Vol] 140 mmol/L Normal 136-145 [facility] Comment on above: Performed By: #### B MP #### [facility] [address] [place] [address] Dr. Patria Sanders Urea nitrogen [Mass/Vol] 11.0 mg/dL Normal 7.0-18.0 [facility] Comment on above: Performed By: #### B MP #### [facility] [address] [place] [address] Dr. Patria Sanders Urea nitrogen/Creatini ne [Mass ratio] 13.8 mg/mg Normal [facility] Comment on above: Performed By: #### B MP #### [facility] [address] [place] [address] Dr. Patria Sanders PROTIMEon 09-15-2022 INR Coag (PPP) [Relative time] 1.02 {INR} Normal [facility] Comment on above: Performed By: #### P TT, PT #### [facility] [address] [place] [address] Dr. Patria Sanders INR GUIDELINES SEE BELOW Normal [facility] Comment on above: Result Comment: SANTO RED INR: 2.0 - 3.0 CONDITIONS NOT LISTED BELOW 2.5 - 3.5 FOR PROSTHETIC HEART VALVE REPLACEMENT 2.5 - 3.5 RECURRENT THROMBOSIS Performed By: #### P TT, PT #### [facility] [address] [place] [address] Dr. Patria Sanders PT Coag (PPP) [Time] 10.8 s Normal 9.0-11.6 [facility] Comment on above: Performed By: #### P TT, PT #### [facility] [address] [place] [address] Dr. Patria Sanders PTTon 09-15-2022 aPTT Coag (Bld) [Time] 32.0 s Normal 22.3-36.2 [facility] Comment on above: Performed By: #### P TT, PT #### [facility] [address] [place] [address] Dr. Patria Sanders Covid-19 PCR (CVDTB)on 01-04 SARS-CoV-2 (COVID-19) RNA NANCY+probe Ql (Unsp spec) Not detected Normal NOT DETECTED [facility] Comment on above: Result Comment: This test is not yet approved or cleared by the [place] FDA. When there are no FDA-approved or cleared tests available, and other criteria are met, FDA can make tests available under an emergency access mechanism called an Emergency Use Authorization (EUA). The EUA for this test is supported by the [employer] Coordination Specialist of Health and Human Service's (HHS's) declaration [...] consistent with SARS-CoV-2. Performed By: #### [facility] #### [facility] [address] [place], [place] [address] Dr. Patria Sanders Hemoglobin A1Con 09-24-2021 EAG 128.37 Normal [facility] Comment on above: Performed By: #### A 1C #### [facility] [address], [place] [id number] HbA1c (Bld) [Mass fraction] 6.1 % High 4.0-6.0 [facility] Comment on above: Performed By: #### A 1C #### [facility] [address], [place] [id number] Testosteroneon 05-11-2021 TESTOS 314.70 ng/dL Normal 193.00-740.00 [facility] Comment on above: Performed By: #### T EST #### [facility] [address], [place] [id number] XR femur BIon 05-06-2021 XR femur BI [facility] [place] [address] [place] [address] XRay Report Signed Patient: Juan Miguel Jennings MR#: [id number] 25 : 1950 Acct:[id number] Age/Sex: 71 / M ADM Date: 05/06/21 Loc: ICXD Room: Type: [facility] Attending Dr: Maxwell Staley PA-C Ordering Provider: Maxwell Staley PA-C Date of Service: 05/06/21 XR/XR chest 2V*: Z01.818 ([id number]) XR/XR femur BI: Z01.818 ([id number]) XR/XR tibia/fibula BI: . Copies to: Maxwell [...] Rosanne Echeverria M.D.05/06/2021 3:12 PM Dictation Location: [place] [address] Transcribed By: [facility] 05/06/21 1519 Dictated By: Rosanne Echeverria MD 05/06/21 1506 Signed By: 05/06/[address] 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 Normal [facility] Vital Signs Date Time Vital Sign Value Performing Clinician Facility 07-19-2023 10:37-0500 Body height 198.1 cm Brody Alexandria DPM Work Phone: [facility] 07-19-2023 10:37-0500 Body mass index (BMI) [Ratio] 39.87 kg/m2 Brody Alexandria DPM Work Phone: [facility] 07-19-2023 10:37-0500 Body weight 156.49 kg Brody Alexandria DPM Work Phone: [facility] 06-20-2023 10:33-0500 Blood Pressure Location Topher STEVENSON [facility] 06-20-2023 10:33-0500 Diastolic blood pressure 86 mm[Hg] Topher STEVENSON [facility] 06-20-2023 10:33-0500 Heart rate 70 /min Topherpeter STEVENSON [facility] 06-20-2023 10:33-0500 Respiratory rate 16 /min Topher STEVENSON [facility] 06-20-2023 10:33-0500 Systolic blood pressure 139 mm[Hg] Topher STEVENSON [facility] 11-05-2022 10:12-0400 Blood Pressure Location Topher STEVENSON [facility] 11-05-2022 10:12-0400 Diastolic blood pressure 78 mm[Hg] Topher STEVENSON [facility] 11-05-2022 10:12-0400 Heart rate 68 /min Topherpeter STEVENSON [facility] 11-05-2022 10:12-0400 Respiratory rate 16 /min Topher STEVENSON [facility] 11-05-2022 10:12-0400 Systolic blood pressure 130 mm[Hg] Topher STEVENSON [facility] 11-03-2022 14:34-0400 Body temperature 97.5 [degF] [facility] Schedule [facility] 11-03-2022 14:34-0400 Diastolic blood pressure 77 mm[Hg] [facility] Schedule [facility] 11-03-2022 14:34-0400 Heart rate 72 /min [facility] 11-03-2022 14:34-0400 Respiratory rate 18 /min [facility] Schedule [facility] 11-03-2022 14:34-0400 Systolic blood pressure 140 mm[Hg] [facility] 06-18-2022 08:55-0500 Blood Pressure Location Topher STEVENSON [facility] 06-18-2022 08:55-0500 Diastolic blood pressure 82 mm[Hg] Topher STEVENSON [facility] 06-18-2022 08:55-0500 Heart rate 80 /min Topher STEVENSON [facility] 06-18-2022 08:55-0500 Respiratory rate 16 /min Topher STEVENSON [facility] 06-18-2022 08:55-0500 Systolic blood pressure 132 mm[Hg] Topher STEVENSON [facility] 05-17-2022 09:43-0500 Blood Pressure Location Topher STEVENSON [facility] 05-17-2022 09:43-0500 Diastolic blood pressure 92 mm[Hg] Topher STEVENSON [facility] 05-17-2022 09:43-0500 Heart rate 63 /min Topher STEVENSON [facility] 05-17-2022 09:43-0500 Systolic blood pressure 143 mm[Hg] Topher STEVENSON [facility] 02-01-2022 09:48-0400 Blood Pressure Location Topher STEVENSON [facility] 02-01-2022 09:48-0400 Diastolic blood pressure 66 mm[Hg] Topher STEVENSON [facility] 02-01-2022 09:48-0400 Heart rate 84 /min Topher STEVENSON [facility] 02-01-2022 09:48-0400 Respiratory rate 16 /min Topher STEVENSON [facility] 02-01-2022 09:48-0400 Systolic blood pressure 98 mm[Hg] Topher STEVENSON [facility] 01-28-2022 13:48-0400 Diastolic blood pressure 76 mm[Hg] [facility] Lab Schedule [facility] 01-28-2022 13:48-0400 Heart rate 56 /min [facility] 01-28-2022 13:48-0400 Respiratory rate 18 /min [facility] 01-28-2022 13:48-0400 Systolic blood pressure 135 mm[Hg] [facility] Schedule [facility] 01-28-2022 13:25-0400 Body temperature 97.39 [degF] [facility] Lab Schedule [facility] [employer] 10-22-2020 12:25-0400 Body temperature 97.81 [degF] Mth[facility] Schedule [facility] [employer] Work Phone: 10-22-2020 12:25-0400 Heart rate 67 /min [email or web address] 07-27-2019 08:03-0500 Body Temperature 96.3 [degF] [facility]th[facility] Schedule [employer] 07-27-2019 08:03-0500 BP Diastolic 80 mm[Hg] [facility] [place] 07-27-2019 08:03-0500 BP Systolic 129 mm[Hg] [facility] [place] [facility] [place] 07-27-2019 08:03-0500 Pulse (Heart Rate) 63 /min [facility] [place] [place] 07-27-2019 08:03-0500 Respiratory Rate 20 /min [facility] [employer] [place] 03-13-2019 08:02-0400 Body Temperature 96.69 [degF] [facility] Schedule [employer] [facility] [employer] 03-13-2019 08:02-0400 BP Diastolic 83 mm[Hg] [facility] [place] [facility] [place] 03-13-2019 08:02-0400 BP Systolic 162 mm[Hg] [facility] [place] [facility] [place] 03-13-2019 08:02-0400 Pulse (Heart Rate) 74 /min [facility] [place] [place] 03-13-2019 08:02-0400 Respiratory Rate 20 /min [facility] Schedule [employer] [facility] [employer] 01-12-2019 08:03-0400 Body Temperature 96.91 [degF] [facility] Schedule [employer] [facility] [employer] 01-12-2019 08:03-0400 BP Diastolic 87 mm[Hg] [facility] Schedule [employer] [place] , [place] 01-12-2019 08:03-0400 BP Systolic 152 mm[Hg] [facility] Schedule [employer] [place] , [place] 01-12-2019 08:03-0400 Pulse (Heart Rate) 63 /min [facility] Schedule [facility] [place], [place] 01-12-2019 08:03-0400 Respiratory Rate 20 /min [facility] Schedule [facility] [place] Encounters Encounter Date Encounter Type Care Provider Facility Start: 10-07-2023 ambulatory Topher Nicki ty:[facility] Start: 09-27-2023 End: 09-27-2023 ambulatory BRODY IBRAHIM Not Available Start: 09-09-2023 End: 09-10-2023 ambulatory Topher Smita KERI Facility:[facility] Start: 09-09-2023 End: 09-09-2023 Patient encounter procedure Topher STEVENSON [facility] Start: 08-15-2023 End: 08-16-2023 ambulatory Topher Smita KERI Facility:[facility] Start: 08-15-2023 End: 08-15-2023 Patient encounter procedure Topher STEVENSON [facility] Start: 07-19-2023 Bamboo flowsheet Brody Youngh er DPM Work Phone: [facility] Start: 07-19-2023 Bamboo flowsheet Brody Tyler er DPM Work Phone: [facility] Start: 07-19-2023 End: 07-19-2023 ambulatory BRODY IBRAHIM Not Available Start: 07-19-2023 End: 07-19-2023 Patient encounter procedure Brody Ibrahim DPM Work Phone: [facility] Comment on above: Dermatophytosis of n ail (Primary Dx); Dystrophic nail; Diabetic polyneuropathy associated with type 2 diabetes mellitus (CMS/HCC); Nontraumatic amputation of foot, right (CMS/HCC); Nontraumatic amputation of foot, left (CMS/HCC); Acquired keratoderma Start: 07-18-2023 End: 07-19-2023 ambulatory Topher STEVENSON Facility:[facility] Start: 07-18-2023 End: 07-18-2023 Patient encounter procedure Topher R KERI [facility] Start: 06-20-2023 End: 06-21-2023 ambulatory Topher STEVENSON Facility:[facility] Start: 06-20-2023 End: 06-20-2023 Patient encounter procedure Topher Smita STEVENSON [facility] Start: 05-17-2023 End: 05-17-2023 ambulatory JORDAN DUNCAN Not Available Start: 05-12-2023 End: 05-13-[address] [facility] Start: 05-09-2023 End: 05-10-2023 ambulatory Topher STEVENSON Facility:[employer] Start: 05-09-2023 End: 05-09-2023 Patient encounter procedure Topher R KERI [facility] Start: 04-19-2023 End: 04-19-2023 ambulatory JORDAN DUNCAN Not Available Start: 04-08-2023 End: 04-08-2023 ambulatory [facility] Start: 04-04-2023 End: 04-05-2023 ambulatory Topher STEVENSON Facility:[facility] Start: 04-04-2023 End: 04-04-2023 Patient encounter procedure Topher R KERI [facility] Start: 03-07-2023 End: 03-08-2023 ambulatory Topher STEVENSON Facility:[facility] Start: 02-08-2023 End: 02-09-2023 ambulatory JORDAN DUNCAN Facility:[facility] Start: 02-08-2023 End: 02-08-2023 Patient encounter procedure JORDAN DUNCAN [facility] [employer] Start: 01-31-2023 ambulatory Topher Duff ty:[facility] Start: 01-03-2023 End: 01-04-2023 ambulatory Topher STEVENSON Facility:[facility] Start: 01-03-2023 End: 01-03-2023 Patient encounter procedure Topher STEVENSON [facility] Start: 12-03-2022 End: 12-04-2022 ambulatory Topher STEVENSON Facility:[facility] Start: 12-03-2022 End: 12-03-2022 Patient encounter procedure Topher STEVENSON [facility] Start: 11-05-2022 End: 11-06-2022 ambulatory Topher STEVENSON Facility:[employer] [facility] Start: 11-05-2022 End: 11-05-2022 Patient encounter procedure [facility] Start: 11-03-2022 End: 11-04-2022 ambulatory [facility] Start: 11-03-2022 End: 11-03-2022 Subsequent [facility] Schedule [facility] Comment on above: Polycythemia (Primar y Dx) Start: 10-29-2022 ambulatory Topher Duff ty:[facility] Start: 10-25-2022 End: 10-26-2022 ambulatory ARNOLD PEOPLES Facility:[facility] Start: 10-05-2022 End: 10-06-[address] JORDAN DUNCAN . Facility:[facility] Start: 10-05-2022 End: 10-06-2022 ambulatory Topher STEVENSON Facility:[facility] Start: 10-05-2022 End: 10-05-2022 Patient encounter procedure Topher STEVENSON [facility] Start: 09-30-2022 End: 10-01-[address] TOPHER STEVENSON . Facility:[facility] Start: 09-27-2022 End: 09-28-2022 ambulatory ARNOLD PEOPLES Facility:[facility] Start: 09-20-2022 End: 09-21-2022 ambulatory [facility] Facility:[facility] Start: 09-20-2022 Encounter for preprocedural cardiovascular examination DR TOPHER STEVENSON . [facility] Start: 09-20-2022 Encounter for preprocedural laboratory examination DR TOPHER STEVENSON . [facility] Start: 09-20-2022 Encounter for preprocedural respiratory examination DR TOPHER STEVENSON . [facility] Start: 09-15-2022 End: 09-16-[address] TOPHER STEVENSON . Facility:[facility] Start: 09-15-2022 End: 09-16-2022 Encounter for preprocedural laboratory examination DR TOPHER STEVENSON . Facility:[facility] Start: 09-06-2022 End: 09-06-2022 Patient encounter procedure Topher STEVENSON [facility] Start: 06-18-2022 End: 06-18-2022 Patient encounter procedure Topher STEVENSON [facility] Start: 05-20-2022 End: 05-21-2022 ambulatory [facility] Facility:[facility] Start: 05-17-2022 End: 05-17-2022 Patient encounter procedure Topher STEVENSON [facility] Start: 04-21-2022 End: 04-22-2022 ambulatory [facility] Facility:[facility] Start: 04-21-2022 End: 04-21-2022 Patient encounter procedure Mandy Schaefer [facility] Start: 04-09-2022 End: 04-10-2022 ambulatory [facility] Facility:[facility] Start: 03-31-2022 End: 03-31-2022 Patient encounter procedure Mandy MBinta Silvano [facility] [employer] Start: 03-22-2022 End: 03-23-2022 ambulatory [facility] Facility:[facility] Start: 03-03-2022 End: 03-03-2022 Patient encounter procedure Mandy MBinta Silvano [facility] [employer] Start: 02-01-2022 End: 02-01-2022 Patient encounter procedure Topher STEVENSON [facility] [employer] Start: 01-28-2022 End: 01-28-2022 Subsequent [facility] Comment on above: Polycythemia (Primar y Dx) Start: 01-18-2022 End: 01-18-[address] JORDAN DUNCAN . Facility:[facility] Start: 01-06-2022 End: 01-07-2022 ambulatory [facility] Facility:[facility] Start: 12-21-2021 End: 12-21-2021 Patient encounter procedure [facility] Start[facility] 11-23-2021 End: 11-23-2021 Patient encounter procedure Topher STEVEN[facility] [facility] Start: 10-26-2021 End: 10-26-2021 Patient encounter procedure Topher STEVENSON [facility] Start: 09-28-2021 End: 09-28-2021 Patient encounter procedure Topher STEVENSON [facility] Start: 08-31-2021 End: 08-31-2021 Patient encounter procedure Topher Ordoñez KERI [facility] Start: 10-22-2020 End: 10-22-2020 Subsequent hospital visit by physician [facility] Med Onc Room 9 Schedule [facility] Comment on above: Polycythemia (Primar y Dx) Start: 07-27-2019 End: 07-27-2019 Subsequent hospital visit by physician [facility] Med Onc Room 9 Schedule [facility] Comment on above: Polycythemia (Primar y Dx) Start: 03-13-2019 End: 03-13-2019 Subsequent hospital visit by physician [facility] Med Onc Room 9 Schedule [facility] Comment on above: Polycythemia (Primar y Dx) Start: 01-12-2019 End: 01-12-2019 Subsequent hospital visit by physician [facility] Med Onc Room 9 Schedule [facility] Start: 02-16-2018 End: 02-17-2018 Patient encounter DEFAULT PHYSICIAN Facility:[facility] Procedures Date Procedure Procedure Detail Performing Clinician Start: 09-30-2022 Circumcision Topher JENSEN Start: 12-17-2020 Colonoscopy Brody pelayo DPM Work Phone: Start: 05-23-2019 foot surgery Topher JENSEN Start: 05-13-2014 History of placement of stent for coronary artery disease S/P JORY - LCX & RCA ([id number]. kabour) [facility] Schedule BACK SURGERY Topher STEVENSON Placement of stent Topher OSEGUERA RECTAL CANCER SURGERY Agustin STEVENSON RIGHT VEIN REMOVED F ROM LEG Topher STEVENSON Plan of Treatment Date Care Activity Detail Author Start: 12-17-2030 Screening for malignant neoplasm of colon [facility] Start: 05-17-2024 Medicare Annual Wellness (AWV) Medicare Annual Wellness (AWV) [facility] Start: 11-26-2023 Glaucoma screening Diabetes: Retinopathy Screening [facility] Start: 10-29-2023 GFR test (Diabetes, CKD 3-4, OR last GFR 15-59) GFR test (Diabetes, CKD 3-4, OR last GFR 15-59) [facility] Start: 10-26-2023 End: 10-26-2023 Patient encounter procedure 10/26/2023 Office Visit Oncology Newton Liu MD [address] [place], [place] [id number] [facility] Start: 10-12-2023 End: 10-12-2023 Patient encounter procedure 10/12/2023 9:30 AM EDT Office Visit [facility] [address] [place] [address] Jordan Duncan MD [address] [place] [address] (Fax) [facility] Start: 09-27-2023 End: 09-27-2023 Patient encounter procedure 09/27/2023 11:00 AM EDT Procedure Visit [facility] [address] [place] [id number] Brody Ibrahim DPArin [address] [place] [address] [facility] Start: 07-14-2023 Hemoglobin A1c measurement Diabetes: Hemoglobin A1C GIOVANNI [facility] Start: 10-20-2022 End: 10-20-2022 Patient encounter procedure 10/20/2022 Office Visit Oncology Newton Liu MD [address] [place], [place] [id number] [facility] Start: 09-24-2022 Hemoglobin A1c measurement A1C test (Diabetic or Prediabetic) [facility] Start: 02-04-2022 Influenza vaccination Flu vaccine (#1) [facility] Start: 11-11-2021 Urine screening for protein Diabetic microalbuminuria test [facility] Start: 10-21-2021 End: 10-21-2021 Patient encounter procedure 10/21/2021 Office Visit Oncology Newton Liu MD [address] [place] [address] [facility] Start: 10-16-2021 COVID-19 Vaccine (4 - Booster for Pfizer series) COVID-19 Vaccine (4 - Booster for Pfizer series) [facility] Start: 10-14-2021 Lipid panel Lipids [facility] Start: 10-24-2019 End: 10-24-2019 Office Visit [place] [facility] Start: 07-31-2019 End: 07-31-2019 Appointment 07/31/[address] [facility] Start: 04-30-2019 End: 04-30-2019 Appointment 04/30/2019 Appointment Infusion Therapy [facility] Start: 02-04-2019 Influenza vaccination Flu vaccine (#1) [place], [place] Start: 11-26-2018 Annual Wellness Visit (AWV) Annual Wellness Visit (AWV) [facility] Start: 08-17-2017 Creatinine measurement Creatinine monitoring [facility] [employer] Work Phone: Start: 08-17-2017 Creatinine monitoring Creatinine monitoring [place], [place] Start: 08-17-2017 Potassium monitoring Potassium monitoring [place] Start: 08-04-2017 A1C test (Diabetic or Prediabetic) A1C test (Diabetic or Prediabetic) [place] Start: 08-04-2017 Hemoglobin A1c measurement A1C test (Diabetic or Prediabetic) [facility] Start: 02-10-2017 Abdominal aortic aneurysm screening AAA screen [facility] Start: 02-10-2017 Pneumococcal 65+ years Vaccine (1 of 2 - PCV13) Pneumococcal 65+ years Vaccine (1 of 2 - PCV13) [place] Start: 01-29-2017 Shingles Vaccine (2 of 3) Shingles Vaccine (2 of 3) [facility] Start: 02-10-2015 Annual Wellness Visit (AWV) Annual Wellness Visit (AWV) [place] Start: 02-10-2002 Colon cancer screen colonoscopy Colon cancer screen colonoscopy [place] Start: 02-10-2002 Screening for malignant neoplasm of colon Colon cancer screen colonoscopy [facility] Work Phone: Start: 02-10-2002 Shingles Vaccine (1 of 2) Shingles Vaccine (1 of 2) [place], [place] Start: 02-10-1997 Screening for malignant neoplasm of colon [facility] Start: 02-10-1971 DTaP/Tdap/Td vaccine (1 - Tdap) DTaP/Tdap/Td vaccine (1 - Tdap) [facility] Start: 02-10-1971 Hepatitis B vaccine (1 of 3 - Risk 3-dose series) Hepatitis B vaccine (1 of 3 - Risk 3-dose series) [place] Start: 02-10-1970 Diabetic microalbuminuria test Diabetic microalbuminuria test [place] Start: 02-10-1970 Diabetic retinal exam Diabetic retinal exam [facility] Start: 02-10-1970 Glaucoma screening Diabetic retinal exam [facility] Start: 02-10-1970 Hepatitis C screening Hepatitis C screen [facility] Start: 02-10-1970 Urine screening for protein Diabetic Alb to Cr ratio (uACR) test [facility] Start: 1964 Depression Screen Depression Screen [facility] Start: 02-10-1963 DTaP/Tdap/Td vaccine (1 - Tdap) DTaP/Tdap/Td vaccine (1 - Tdap) [place] Start: 02-10-1962 [object Object] Diabetic foot exam [place] Start: 02-10-1962 Diabetic foot examination Diabetic foot exam [facility] Start: 02-10-1962 Diabetic retinal exam Diabetic retinal exam [place] Start: 02-10-1962 Lipid panel [facility] Start: 02-10-1962 Lipid screen [facility] Start: 1950 Annual Wellness Visit (AWV) Annual Wellness Visit (AWV) [facility] Start: 1950 Hepatitis C screen [facility]atitis C screen [facility] Start: 1950 Hepatitis C screening Hepatitis C screen [facility] Work Phone: Start: 1950 Screening for malignant neoplasm of colon [facility] Immunizations Immunization Date Immunization Notes Care Provider Fa jillianty 02-28-2023 Influenza, Seasonal, Quadrivalent, Adjuvanted Brody Ibrahim DPM Work Phone: [facility] 04-16-2022 influenza virus vacc ine, unspecified formulation Topher STEVENSON [facility] 04-16-2022 Influenza, Seasonal, Quadrivalent, Adjuvanted Brody Ibrahim DPM Work Phone: [facility] 03-23-2022 Moderna Bivalent Simmons ster Vaccination Brody Ibrahim DPM Work Phone: [facility] 03-23-2022 Moderna SARS-CoV-2 50mcg/0.5mL Booster Brody Ibrahim DPM Work Phone: [facility] 03-23-[address] 12 Years And Older Brody Ibrahim DPM Work Phone: [facility] 03-23-2022 SARS-CoV-2 (COVID-19 ) [id number] Topher STEVENSON [facility] 06-18-2021 SARS-CoV-2 (COVID-19 ) mRNA BNT-162b2 vax Topher STEVENSON [facility] 05-06-2021 influenza virus vacc ine, unspecified formulation Topher STEVENOSN [facility] 12-01-2021 Influenza, Seasonal, Quadrivalent, Adjuvanted Brody Ibrahim DPM Work Phone: [facility] 05-06-2021 SARS-CoV-2 (COVID-19 ) Ad26 vaccine, recombinant Topher STEVENSON [facility] 08-28-2020 SARS-CoV-2 (COVID-19 ) mRNA BNT-162b2 vax Topher STEVENSON [facility] 08-28-2020 SARS-CoV-2, Unspecified Garry garrick Ibrahim DPM Work Phone: [facility] 08-27-2020 Pfizer Purple Cap SARS-CoV-2 Vaccination Brody Ibrahim DPM Work Phone: [facility] 08-08-2020 SARS-CoV-2 (COVID-19 ) mRNA BNT-162g4 vax Topher STEVENSON [facility] Comment on above: Result Comment: 2022: [id number] 08-08-2020 SARS-CoV-2, Unspecified Garry garrick Ibrahim DPM Work Phone: [facility] 08-07-2020 Pfizer Purple Cap SARS-CoV-2 Vaccination Brody Ibrahim DPM Work Phone: [facility] 08-04-2020 SARS-CoV-2 (COVID-19 ) Ad26 vaccine, recombinant Topher STEVENSON [facility] 03-22-2020 influenza virus vacc ine, unspecified formulation Topher STEVENSON [facility] 03-22-2020 Influenza, Seasonal, Quadrivalent, Adjuvanted Brody Ibrahim DPM Work Phone: [facility] 03-06-2019 pneumococcal conjuga te vaccine, 13 valent Topher STEVENSON [facility] 03-05-2019 influenza virus vacc ine, unspecified formulation Topher STEVENSON [facility] 03-05-2019 influenza, high dose seasonal, preservative-free Brody Rusher DPM Work Phone: [facility] 03-05-2019 pneumococcal polysaccharide vaccine, 23 valent Topher STEVENSON [facility] 03-04-2019 Influenza, High-dose Seasonal, Quadrivalent, Preservative Free Brody Rusher DPM Work Phone: [facility] 03-04-2019 pneumococcal polysaccharide vaccine, 23 valent Brody Rusher DPM Work Phone: [facility] 03-03-2018 influenza virus vacc ine, unspecified formulation Topher STEVENSON [facility] 03-03-2018 influenza, high dose seasonal, preservative-free Brody Rusher DPM Work Phone: [facility] 03-03-2018 pneumococcal conjuga te vaccine, 13 valent Topher STEVENSON [facility] 03-03-2018 pneumococcal polysaccharide vaccine, 23 valent Brody Rusher DPM Work Phone: [facility] 03-02-2018 pneumococcal conjuga te vaccine, 13 valent Brody Rusher DPM Work Phone: [facility]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 08/04/2016 9:28 PM 08/06/2016 9:06 AM Full Code 05/15/2015 12:42 PM 05/19/2015 6:52 PM Full Code 05/12/2015 11:22 AM 05/15/2015 12:42 PM Full Code 05/13/2014 2:36 PM 05/13/2014 9:20 PM Documents on File Type Date Recorded Patient Associate Media Planner Expl anation ACP-Advance Directive ACP-Power of Class B Truck Driver ACP-Advance Directive 08/31/2013 9:46 AM ACP-Power of Class B Truck Driver 08/31/2013 9:46 AM Documents on File Type Date Recorded Patient Associate Media Planner Expl anation ACP-Advance Directive 08/31/2013 9:46 AM ACP-Power of Class B Truck Driver 08/31/2013 9:46 AM Latest Code Status on [...] Documents on File Type Date Recorded Patient Associate Media Planner Expl anation Advance Directives and Living Will 11/20/2019 2018-05-09 Living Wi ll Advance Directives and Living Will 11/20/2019 2018-05-09 Power Of Class B Truck Driver History of Present Illness * Luh Hoffman, RN - 03/13/2019 8:24 AM EDT 0800 [...] section and content) DATE CREATED AUTHOR 11/24/2017 [facility] DATE CREATED AUTHOR AUTHOR'S ORGANIZ ATION 03/15/2018 [facility] DATE CREATED AUTHOR AUTHOR'S ORGANIZ ATION 07/01/2021 [facility] DATE CREATED AUTHOR AUTHOR'S ORGANIZ ATION 09/26/2021 [facility] dical Specialist DATE CREATED AUTHOR AUTHOR'S ORGANIZ ATION 11/13/2022 [facility] DATE CREATED AUTHOR AUTHOR'S ORGANIZ ATION 04/09/2023 [facility] DATE CREATED AUTHOR AUTHOR'S ORGANIZ ATION 04/28/2023 [facility] DATE CREATED AUTHOR AUTHOR'S ORGANIZ ATION 05/14/2023 [facility] DATE CREATED AUTHOR AUTHOR'S ORGANIZ ATION 09/09/2023 [facility] DATE CREATED AUTHOR AUTHOR'S ORGANIZ ATION 09/28/2023 [facility] dical Specialists EPIC Care Team (unrecognized sect ion and content) Store Team Member Relationship Specialty Start Date End Date Jordan Duncan MD PCP - General 07/25/19 Store Team Member Relationship Specialty Start Date End Date Jordan Duncan MD [address] [place] [address] PCP - General Family Medicine 10/25/22 Mitch Mello MD [address] [place] [address] Referring Physician Cardiology 05/17/23 Jr. Anuja Henson DO [address] [address] Referring Physician Orthopaedic Surgery 05/17/23 Brody Ibrahim DPM [address] [place] [address] Referring Physician Podiatry 05/17/23 Store Team Member Relationship Specialty Start Date End Date Jordan Duncan MD [address] [place] [address] PCP - General Family Medicine 10/25/22 Mitch Mello MD [address] [place], [place] [id number] Referring Physician Cardiology 05/17/23 Jr. Anuja Henson DO [address] [address] Referring Physician Orthopaedic Surgery 05/17/23 Brody Ibrahim DPM [address] [facility] [place] [address] Referring Physician Podiatry 05/17/23 Reason for Visit (unrecogniz ed section and content) Reason Comments Nail care Juan Miguel Jennings is a 73 y.o. male who presents for Nail care and discuss inserts. Pt relates recently saw Dr Boss right foot ulcer, which has improved. Dr. Ruiz 05/17/2023 BS 121 A1C 6.0(04/2023)/ SS14 FOR RECORDS PERTAINING TO PATIENTS WHO ARE [...] BE BASED ON THE PRIMARY CLINICAL RECORDS. [employer] [facility]. provides no warranty or guarantee of the accuracy or completeness of information in this document.
== END 2023-09-30 09:17 | disposition home or self-care (01) ==
LOC: WC 09:17
PROVIDERS: PCP Internal Medicine Interventional Cardiology; Visit Provider Podiatrist Foot & Ankle Surgery
DX: E11.621 Type 2 diabetes mellitus with foot ulcer (principal); L97.422 Non-pressure chronic ulcer of left heel and midfoot with fat layer exposed
CPT/HCPCS: G0463

== ENCOUNTER 2023-11-21 07:35 | Outpatient (OUT) | payer MEDICARE, SELFPAY ==
--- OUTSIDE RECORDS SUMMARY | 2023-11-21 07:39 | XMS_ITS | CCD ---
Author Organization [facility] Care Team Providers Care Ware Carrier Name Role Phone PHYSICIAN, DEFAULT Unavailable Unavailable PHYSICIAN, DEFAULT Unavailable Unavailable Diego Bartlett Primary Care Provider Jordan Duncan Primary Care Provider [phone] Jordan Duncan MD Primary Care Provider [phone] JORDAN DUNCAN Primary Care Physician Jordan Duncan MD Primary Care Provider [phone] JORDAN DUNCAN Primary Care Physician Unavail able Jordan Duncan MD Primary Care Provider ENEDINA BOSS Attending Unavailable HEMEENOC ., DR ALATORRE Primary Care Unavailable ENEDINA BOSS Admitting Unavailable ENEDINA BOSS Admitting Unavailable ENEDINA BOSS Attending Unavailable HEMEYER ., DR ALATORRE Primary Care Unavailable ENEDINA BOSS Admitting Unavailable ENEDINA BOSS Attending Unavailable HEMEYER ., DR ALATORRE Primary Care Unavailable ORA, DR ALBERTO Ordoñez Consulting Unavailable ENEDINA BOSS Consulting Unavailable [...] HEMEYER ., DR ALATORRE Primary Care Unavailable GRAHAM ., DR OBANDO Consulting Unavailable STEVENSON ., DR OBANDO Attending Unavailable STEVENSON ., DR OBANDO Admitting Unavailable HEMEYER ., DR ALATORRE Primary Care Unavailable LINNEA IICHANI Consulting Unavailable MATEO VILLALOBOS Consulting Unavailable HEMEYER [...] Primary Care Unavailable ANUJA DENTON Attending Unavailable Hemeyer , Jordan Brown Primary Care Provider Mitch eMllo MD Unavailable [phone] Jr. Anuja Henson DO Unavailable Alberto Ibrahim DPM Unavailable [phone] ALBERTO IBRAHIM Attending Unavailable ALBERTO IBRAHIM Attending Unavailable HEMEYER, EDANGUS Brown Attending Unavailable HEMEYER, EDANGUS J Attending Unavailable HEMEYER, JORDAN J Attending Unavailable HEMEYER, EDANGUS J Attending Unavailable STEVENSON, Hudson R Attending [...] Unavailable STEVENSON, Hudson R Attending Unavailable HEMEYER, EDANGUS J Attending Unavailable STEVENSON, Hudson R Attending Unavailable AL-BRIAN, ADNAN R Referring Unavailable HEMEYER, EDWARD J Primary Care Unavailable AL-BRIAN, ADNAN R Referring Unavailable HEMEYER, EDWARD J Primary Care Unavailable Allergies Allergy Classification Reported Allergen(s) Allergy Type Date of Onset Reaction(s) Facility (4 sources) Clindamycin/Linc omycin Propensity to adverse reactions to drug 8 [place] (2 sources) Clindamycin Drug Allergy 2 [facility] (3 sources) glipiZIDE; 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: [GLIPIZIDE] Drug Allergy 2 Diarrhea [facility] Phone: (5 sources) metFORMIN; 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: [METFORMIN] Drug Allergy 2 Diarrhea, Unknown [facility] Phone: (5 sources) Pravastatin; 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: [PRAVASTATIN] Drug Allergy 2 Unknown [facility] Phone: (3 sources) rosuvastatin; 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: [ROSUVASTATIN] Drug Allergy 2 [facility] Phone: (2 sources) Clindamycin; 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: [CLINDAMYCIN] Drug Allergy 7 [facility] (1 source) glipiZIDE Drug Allergy 7 [facility] (1 source) metFORMIN Drug Allergy 7 [facility] (3 sources) ezetimibe; 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: [EZETIMIBE] Drug Allergy 2 Unknown [facility] Repository (2 sources) Clindamycin Drug Allergy 2 Diarrhea [facility] (2 sources) glipiZIDE Drug Allergy 2 Diarrhea, Unknown [facility] (2 sources) Rosuvastatin calcium Allergy to substance 1 Unknown [facility] Healthcare Medications Current Medications Medication Drug [...] 0 Active Cholecalciferol (VITAMIN D3) 50 MCG (1999 UT) TABS Take by mouth daily 0 Active Cholecalciferol (VITAMIN D3) 3000 UNITS TABS Take by mouth daily 0 Active Cholecalciferol (VITAMIN D3) 3000 UNITS TABS Take by mouth. 0 Active cyclobenzaprine hydrochloride 10 mg oral tablet (8 sources) Muscle Relaxant Start: 04-19-2023 take 1 tablet by mouth three times daily as needed for muscle spasms cyclobenzaprine 10 mg Tab 10 mg = 1 tab(s), Oral, TID, PRN for spasm, # 30 tab(s), Refills(s) 0 Start Date: 06/20/23 Status: Ordered diclofenac sodium 75 mg delayed release oral tablet (8 sources) Nonsteroidal Anti-inflammatory Drug Start: 05-17-2023 End: [...] mg by mouth daily 0 Active Metoprolol (14 sources) beta-Adrenergic Justice Start: 06-20-2023 METOPR OLOL TARTRATE 100 MG TAB METOPROLOL TARTRATE 100 MG TAB Start Date: 06/20/23 Status: Ordered Start: 04-20-2023 End: 10-17-2023 take 1.5 tablets by mouth every twenty-four hours in the morning metoprolol succinate XL (Toprol XL) 100 MG 24 hr tablet Indications: Atherosclerosis of [place] coronary artery of [place] heart without angina pectoris (CMS/HCC) Take 1.5 [...] 02/25/20 Status: Ordered take [facility] once daily pioglitazone (ACTOS) 30 MG tablet [...] Active tamsulosin hydrochloride 0.4 mg oral capsule (17 sources) alpha-Adrenergic Justice Start: 05-26-2023 take 1 capsule by mouth once daily tamsulosin 0.4 mg Cap 0.4 mg = 1 cap(s), Oral, Daily, # 90 cap(s), Refills(s) 3, Pharmacy: [facility]/pharmacy #[id number], 198, cm, 11/05/22 10:14:00 EDT, Height/Length Dosing, 150, kg, 11/05/22 10:14:00 EDT, Weight Dosing Start Date: 05/26/23 Status: Ordered Start: 06-18-2022 take 1 capsule by [facility] once daily tamsulosin 0.4 mg Cap 0.4 mg = 1 cap(s), Oral, Daily, # 90 cap(s), Refills(s) 3, Pharmacy: [facility]/pharmacy #[id number], 198, cm, 06/18/22 9:10:00 EST, Height/Length Dosing, 164, kg, 06/18/22 9:10:00 EST, Weight Dosing Start Date: 06/18/22 Status: Ordered take 1 capsule by [facility] every twenty-four hours at bedtime tamsulosin (Flomax) 0.4 MG 24 hr capsule Take 0.4 mg by mouth at bedtime 0 Active 1 ml testosterone cypionate 200 mg/ml injection (8 sources) Androgen Start: 07-12-2017 testosterone c ypionate (DEPOTESTOTERONE CYPIONATE) 200 MG/ML injection Inject 1 mL into the muscle. Once a month 4 07/12/2017 Active testosterone cypionate 200 mg/mL IM Richelle (14 sources) Start: 06-20-2023 testosterone c ypionate 200 [...] month, # 10 mL, Refills(s) 3, Pharmacy: [facility]/pharmacy #[id number], 198, cm, 02/01/22 9:53:00 EDT, Height/Length [...] q4wk, # 10 mL, Refills(s) 1, [id number], cm, 08/03/21 14:37:00 EST, Height/Length [...] Coronary arteriosclerosis; 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: [Atherosclerotic heart disease of [place] coronary artery without angina pectoris] Onset: 04-08-2017 [...] 05-17-2023 08-04-2016 Chronic Disorders of lipid metabolism (20 sources) Hyperlipidemia; 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: [Hyperlipidemia, unspecified] Onset: 05-13-2014 [...] 01-13-2023 01-11-2023 Chronic 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 (1 source) 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; 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: [CURB SETTER CURRNT USE ANTICOAGULANTS] Onset: 10-12-2022 Episodic 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 (1 source) assisted (current) use of aspirin; 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: [ALF CURRENT USE OF ASPIRIN] Onset: 10-12-2022 Episodic 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 (1 source) assisted (current) use of oral hypoglycemic drugs; 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: [CURB SETTER USE ORAL HYPOGLYCEMIC DX] Onset: 10-12-2022 Episodic 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 (1 source) Other 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) drug therapy; 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: [OTH ALF CURRENT DRUG THERAPY] Onset: 09-20-2022 Episodic Other [...] Onset: 05-25-2021 05-17-2023 Chronic Other endocrine disorders (15 sources) Disorder of pituitary gland; 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: [Disorder of pituitary gland, unspecified] Onset: 08-31-2021 Chronic Other endocrine disorders (20 sources) Hypogonadism 01-01-2019 Chronic Other endocrine disorders (20 sources) Male hypogonadism; 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: [Testicular hypofunction] Onset: 01-11-2023 01-01-2019 Chronic Other endocrine disorders (6 sources) Testicular hypofunction; 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: [Testicular hypofunction] Onset: [...] breakdown of skin] Onset: 01-14-20 Resolved : 01-14-20 23 01-13-2023 Chronic E Codes: Adverse effects of medical drugs (2 sources) HMG COA reductase inhibitor adverse reaction; 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: [Adverse effect of antihyperlipidemic and antiarteriosclerotic drugs, initial encounter] Onset: 09-11-1901-11-2023 Episodic Infective arthritis and osteomyelitis (except that [...] Interpretation Reference Range Facil ity [facility] 11-09-2023 Lab Reports [id number] #1.00TIFF Normal [facility] CBC W/AUTO DIFFon 10-25-2023 ABS IMMATURE GRAN 0.02 Normal [facility] ABS NEUTROPHILS 4.57 K/uL Normal 1.50-7.50 [facility] Basophils (Bld) [#/Vol] 0.04 10*3/uL Normal 0.00-0.20 [facility] Basophils/100 WBC (Bld) 0.6 % Normal [facility] Eosinophils (Bld) [#/Vol] 0.42 10*3/uL Normal 0.00-0.50 [facility] Eosinophils/100 WBC (Bld) 5.8 % Normal [facility] Erythrocyte distribution width (RBC) [Ratio] 13.1 % Normal 11.5-15.0 [facility] Hematocrit (Bld) [Volume fraction] 51.0 % Normal 40.0-51.0 [facility] Hemoglobin (Bld) [Mass/Vol] 17.5 g/dL High 13.5-17.0 [facility] IMMATURE GRAN 0.3 % Normal [facility] Lymphocytes (Bld) [#/Vol] 1.26 10*3/uL Normal 1.00-4.00 [facility] Lymphocytes/100 WBC (Bld) 17.4 % Normal [facility] MCH (RBC) [Entitic mass] 33.1 pg High 25.0-33.0 [facility] MCHC (RBC) [Mass/Vol] 34.3 g/dL Normal 31.0-36.0 [facility] MCV (RBC) [Entitic vol] 96.6 fL Normal 80.0-99.0 [facility] Monocytes (Bld) [#/Vol] 0.93 10*3/uL Normal 0.20-1.00 [facility] Monocytes/100 WBC (Bld) 12.8 % Normal [facility] Neutrophils/100 WBC (Bld) 63.1 % Normal [facility] Platelet mean volume (Bld) [Entitic vol] 13.0 fL Normal 9.3-13.0 [facility] Comment on above: Result Comment: [facility] [address] [place] [address] CLIA No. [id number] CAP Accreditation No. [id number] Branch Associate: Shaunna Dee M.D. Platelets (Bld) [#/Vol] 141 10*3/uL Normal 130-400 [facility] RBC (Bld) [#/Vol] 5.28 10*6/uL Normal 4.50-6.10 [facility] WBC (Bld) [#/Vol] 7.2 10*3/uL Normal 3.5-11.0 [facility] COMPREHENSIVE METABOLIC PANE L WITH GFRon 10-25-2023 Albumin [Mass/Vol] 4.4 g/dL Normal 3.5-5.2 [facility] ALK PHOS 87 U/L Normal 40-125 [facility] ALT [Catalytic activity/Vol] 30 U/L Normal 5-50 [facility] Anion gap [Moles/Vol] 12.0 mmol/L Normal 7.0-16.0 [facility] AST-SGOT 27 U/L Normal 9-50 [facility] Bilirubin.direct [Mass/Vol] 0.6 mg/dL Normal <=1.2 [facility] Calcium [Mass/Vol] 9.6 mg/dL Normal 8.5-10.5 [facility] Chloride [Moles/Vol] 100 mmol/L Normal 95-107 [facility] CO2 [Moles/Vol] 27 mmol/L Normal 19-31 [facility] Creatinine [Mass/Vol] 0.91 mg/dL Normal 0.80-1.40 [facility] GFR/1.73 sq M.predicted among non-blacks MDRD (S/P/Bld) [Vol rate/Area] 90 mL/min/{1.73_m2} Normal >60 [facility] Glucose [Mass/Vol] 136 mg/dL High 70-99 [facility] Potassium [Moles/Vol] 4.1 mmol/L Normal 3.5-5.4 [facility] Protein [Mass/Vol] 7.2 g/dL Normal 6.1-8.3 [facility] Sodium [Moles/Vol] 139 mmol/L Normal 133-146 [facility] Urea nitrogen [Mass/Vol] 13 mg/dL Normal 8-23 [facility] Ambulatory Visit Summaryon 0 10-07-2023 Ambulatory Visit Summary JUAN MIGUEL JENNINGS :1950 Visit Date:10/07/2023 Ambulatory Visit Instructions Your Diagnosis Hypogonadism male Your Care Team Attending Physician - GRAHAM NOLASCO, Hudson Ordoñez Primary Care Physician - DAKOTA NOLASCO, JORDAN Brown This Is Your Medications List Misc Prescription (METOPROLOL TARTRATE 100 MG TAB) aspirin (aspirin 81 mg oral tablet) brimonidine-brinzola mide ophthalmic (Simbrinza) cyclobenzaprine (cyclobenzaprine 10 mg Tab) [...] Scheduled Follow-Up Appointments Tuesday 9:00 AM EDT Where: [facility] Ambulatory Visit Summaryon 0 09-09-2023 Ambulatory Visit Summary JUAN MIGUEL JENNINGS :1950 Visit Date:09/09/2023 Ambulatory Visit Instructions Your Diagnosis Hypogonadism Your Care Team Attending Physician - GRAHAM NOLASCO, Hudson Ordoñez Primary Care Physician - DAKOTA NOLASCO, JORDAN Brown This Is Your Medications List [facility] Prescription (METOPROLOL TARTRATE 100 MG TAB) aspirin (aspirin 81 mg oral tablet) brimonidine-brinzola mide ophthalmic (Simbrinza) cyclobenzaprine (cyclobenzaprine 10 mg Tab) [...] to do next Scheduled Follow-Up Appointments Tuesday 8:30 AM EDT Where: [facility] 07-15-2023 Lab Reports [id number] #1.00TIFF Normal [facility] 06-28-2023 Lab Reports [id number] #1.00TIFF Normal [facility] Ambulatory Visit Summaryon 0 06-20-2023 Ambulatory Visit Summary JUAN MIGUEL JENNINGS :1950 Visit Date:06/20/2023 Ambulatory Visit Instructions Your Diagnosis Hypogonadism male Elevated PSA BPH with urinary obstruction Phimosis Urinary urgency Tests Performed Urnls Dip Stick Auto w/o Microscopy POC 30074 Your Care Team Attending Physician - GRAHAM NOLASCO, Hudson Ordoñez Primary Care Physician - DAKOTA NOLASCO, JORDAN Brown This Is Your Medications List oxybutynin (oxybutynin 5 mg ER Tab) tamsulosin (tamsulosin 0.4 mg Cap) testosterone (testosterone cypionate 200 mg/mL IM Richelle) Contact prescribing physician if questions or concerns Misc Prescription (METOPROLOL TARTRATE 100 MG TAB) aspirin (aspirin 81 mg oral tablet) brimonidine-brinzola mide ophthalmic (Simbrinza) cyclobenzaprine (cyclobenzaprine 10 mg Tab) [...] 9:30 AM EST Where: [facility] Patient Educationon 06-20-19 24 Patient Education Urology [...] Follow these instructions at home: ? Take mutt-nsf-ghuefyp and prescription medicines only as told by [...] 01/22/2021 Document (more content not included)... Normal [facility] Urology Office/Clinic Noteon 06-20-2023 Urology Office/Clinic Note [...] Denies SEs. 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 Normal [facility] Comment on above: Result Comment: Elec tronically Signed By: Hudson STEVENSON MD\.br\Date and Time Signed: 06/20/23 11:28 EST\.br\Electronically Co-Signed By: Erica Marin\.br\Date and Time Co-Signed: 06/20/23 11:26 EST [facility] 05-31-2023 Lab Reports [id number] #1.00TIFF Normal [facility] CBC W/AUTO DIFFon 04-26-2023 ABS NEUTROPHILS 3.94 [...] Inc Comment on above: Result Comment: [facility] [address] [place] [address] CLIA No. [id number] CAP Accreditation No. [id number] Branch Associate: Shaunna Dee M.D. Platelets (Bld) [#/Vol] 125 [...] [facility] Office Visiton 04-08-2023 Follow-up visit [id number] Juan Miguel Jennings 1950 M Date Provider Department Center 04/08/2023 ANUJA ARMSTRONG [facility] Family History Problem Relation Age of Onset Heart disease Mother Heart disease Father Family Status - Relation Status Age at Mother Father Level of Service:08614 [place] OFFICE/OUTPATIENT ESTABLISHED MOD MDM 30-39 MIN Normal [facility] Medication Consenton 023 Medication Consent [id number] #1.00TIFF Normal [facility] Ambulatory Visit Summaryon 1 Ambulatory Visit Summary JUAN MIGUEL JENNINGS :1950 Visit Date:04/04/2023 Ambulatory Visit Instructions Your Diagnosis Hypogonadism Your Care Team Attending Physician - GRAHAM NOLASCO, Hudson Ordoñez Primary Care Physician - DAKOTA NOLASCO, JORDAN Brown This Is Your Medications List aspirin (aspirin 81 mg oral tablet) brimonidine-brinzola mide ophthalmic (Simbrinza) empagliflozin (Jardiance 25 mg oral [...] AM EST With: Where: [facility] Normal [address] [place] [address]- \.br\ Medications\.br\ What How Much When Instructions\.br \ Unchanged aspirin (aspirin 81 mg oral tablet) By Mouth Every day\.br\ Unchanged brimonidine-brin zolamide ophthalmic (Simbrinza) Both eyes 2 times a [...] Intramuscular Every 4 weeks\.br\ Medications and Immunizations Administered\.br \ Given\.br\ Depo-Testosteron e 200 mg/mL intramuscular solution, 400 mg, IntraMuscular. For: Hypogonadism\.br \ Allergies\.br\ No Known Allergies\.br\ Problems\.br\ Ongoing - Any problem that you are currently receiving treatment for.\.br\ BPH with urinary obstruction\.br\ Coronary artery disease\.br\ Diabetes\.br\ Elevated PSA\.br\ History of colon cancer\.br\ Hx of detention use of blood thinners\.br\ Hyperlipidemia\. 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\.br\ Myocardial infarction\.br\ Nocturia\.br\ [...] for choosing us for your care.\.br\ \.br\ [facility] Ambulatory Visit Summaryon 1 Ambulatory Visit Summary JUAN MIGUEL JENNINGS :1950 Visit Date:03/07/2023 Ambulatory Visit Instructions Your Diagnosis Hypogonadism Your Care Team Attending Physician - GRAHAM NOLASCO, Hudson Ordoñez Primary Care Physician - DAKOTA NOLASCO, JORDAN Brown This Is Your Medications List aspirin (aspirin 81 mg oral tablet) brimonidine-brinzola mide ophthalmic (Simbrinza) empagliflozin (Jardiance 25 mg oral [...] AM EDT With: Where: [facility] Invalid Interpretation Code [address] [place] [address]- \.br\ Tuesday 9:45 AM EST \.br\ With: GRAHAM NOLASCO, Hudson Ordoñez\.br\ Where: [facility] Ambulatory Visit Summaryon 0 02-08-2023 Ambulatory Visit Summary JUAN MIGUEL JENNINGS :1950 Visit Date:02/08/2023 Ambulatory Visit Instructions Your Diagnosis Hypogonadism Your Care Team Attending Physician - DAKOTA NOLASCO, JORDAN Brown Primary Care Physician - DAKOTA NOLASCO, JORDAN Brown This Is Your Medications List aspirin (aspirin 81 mg oral tablet) brimonidine-brinzola mide ophthalmic (Simbrinza) empagliflozin (Jardiance 25 mg oral [...] 8:45 AM EDT With: Where: [facility] Invalid Interpretation Code [address] [place] [address]- \.br\ Tuesday 8:45 AM EST \.br\ With:\.br\ Where: [facility] Ambulatory Visit Summaryon 0 01-03-2023 Ambulatory Visit Summary JUAN MIGUEL JENNINGS :1950 Visit Date:01/03/2023 Ambulatory Visit Instructions Your Diagnosis Hypogonadism Your Care Team Attending Physician - GRAHAM NOLASCO, Hudson Ordoñez Primary Care Physician - DAKOTA NOLASCO, JORDAN Brown This Is Your Medications List aspirin (aspirin 81 mg oral tablet) brimonidine-brinzola mide ophthalmic (Simbrinza) empagliflozin (Jardiance 25 mg oral [...] 8:45 AM EDT Where: [facility] CBC W/AUTO DIFFon 10-29-2022 ABS NEUTROPHILS 4.64 [...] on above: Result Comment: [facility] [address] [place] [address] CLIA No. [id number] CAP Accreditation No. [id number] Branch Associate: Shaunna Dee M.D. Platelets (Bld) [#/Vol] 105 [...] 16 mg/dL Normal 8-23 [facility] POINT OF CARE GLUCOSEon 09-05 Glucose [Mass/Vol] 112 mg/dL Critically high 74-106 [facility] Comment on above: Performed By: #### P OCGLUC #### [facility] [address] [place] [address] Dr. Patria Sanders Formson 09-21-2022 Forms [id number] #1.00CD:127 Normal [facility] CBC AUTO DIFFon 09-15-2022 BASO # 0.0 103/ul Normal 0.0-0.1 [facility] Comment on above: Performed By: #### C BC #### [facility] [address] [place] [address] Dr. Patria Sanders Basophils/100 WBC (Bld) 0.5 % Normal 0.2-2.0 [facility] Comment on above: Performed By: #### C BC #### [facility] [address] [place] [address] Dr. Patria Sanders EO # 0.3 103/ul Normal 0.0-0.7 [facility] Comment on above: Performed By: #### C BC #### [facility] [address] [place] [address] Dr. Patria Sanders Eosinophils/100 WBC (Bld) 3.2 % Normal 0.9-7.0 [facility] Comment on above: Performed By: #### C BC #### [facility] [address] [place] [address] Dr. Patria Sanders Erythrocyte distribution width (RBC) [Ratio] 14.5 % Normal 11.0-15.0 [facility] Comment on above: Performed By: #### C BC #### [facility] [address] [place] [address] Dr. Patria Sanders Hematocrit (Bld) [Volume fraction] 49.0 % Normal 42.0-54.0 [facility] Comment on above: Performed By: #### C BC #### [facility] [address] [place] [address] Dr. Patria Sanders Hemoglobin (Bld) [Mass/Vol] 16.7 g/dL Normal 14.0-18.0 [facility] Comment on above: Performed By: #### C BC #### [facility] [address] [place] [address] Dr. Patria Sanders IG # 0.03 10e3/ul Normal 0.00-0.03 [facility] Comment on above: Performed By: #### C BC #### [facility] [address] [place] [address] Dr. Patria Sanders IG % 0.4 % Normal 0.0-0.5 [facility] Comment on above: Performed By: #### C BC #### [facility] [address] [place] [address] Dr. Patria Sanders LYMPH # 1.1 103/ul Critically low 1.2-3.8 [facility] Comment on above: Performed By: #### C BC #### [facility] [address] [place] [address] Dr. Patria Sanders Lymphocytes/100 WBC (Bld) 14.5 % Critically low 20.5-60.0 [facility] Comment on above: Performed By: #### C BC #### [facility] [address] [place] [address] Dr. Patria Sanders MANUAL DIFF REQ NO Normal [facility] Comment on above: Performed By: #### C BC #### [facility] [address] [place] [address] Dr. Patria Sanders MCH (RBC) [Entitic mass] 32.6 pg Normal 25.9-34.0 [facility] Comment on above: Performed By: #### C BC #### [facility] [address] [place] [address] Dr. Patria Sanders MCHC (RBC) [Mass/Vol] 34.1 g/dL Normal 29.9-35.2 [facility] Comment on above: Performed By: #### C BC #### [facility] [address] [place] [address] Dr. Patria Sanders MCV (RBC) [Entitic vol] 95.5 fL Critically high 80.0-94.0 [facility] Comment on above: Performed By: #### C BC #### [facility] [address] [place] [address] Dr. Patria Sanders MONO # 0.8 103/ul Normal 0.3-0.8 [facility] Comment on above: Performed By: #### C BC #### [facility] [place] [facility] [address] [place] [address] Dr. Patria Sanders Monocytes/100 WBC (Bld) 9.6 % Normal 1.7-12.0 [facility] Comment on above: Performed By: #### C BC #### [facility] [place] [facility] [address] [place] [address] Dr. Patria Sanders NEUT # 5.6 103/ul Normal 1.4-6.5 [facility] [place] Comment on above: Performed By: #### C BC #### [facility] [place] [facility] [address] [place] [address] Dr. Patria Sanders Neutrophils/100 WBC (Bld) 71.8 % Normal 43.0-75.0 [facility] [place] Comment on above: Performed By: #### C BC #### [facility] [place] [facility] [address] [place] [address] Dr. Patria Sanders Platelet mean volume (Bld) [Entitic vol] 11.6 fL Normal 9.5-13.5 [facility] [place] Comment on above: Performed By: #### C BC #### [facility] [place] [facility] [address] [address] [address] Patria Sanders PLT 154 103/ul Normal 150-450 [facility] [place] Comment on above: Performed By: #### C BC #### [facility] [place] [facility] [address] [place] [address] Dr. Patria Sanders RBC 5.13 106/ul Normal 4.70-6.10 [facility] [place] Comment on above: Performed By: #### C BC #### [facility] [place] [facility] [address] [address] [address] Patria Sanders WBC 7.8 103/ul Normal 4.0-11.0 [facility] [place] Comment on above: Performed By: #### C BC #### [facility] [place] [facility] [address] [place] [address] Dr. Patria Sanders PROF CHEM 8 (BAS METB)on Anion gap [Moles/Vol] 11.4 mmol/L Normal [facility] Comment on above: Performed By: #### B MP #### [facility] [place] [facility] [address] [place] [address] Dr. Patria Sanders Calcium [Mass/Vol] 9.1 mg/dL Normal 8.5-10.1 [facility] [place] Comment on above: Performed By: #### B MP #### [facility] [place] [facility] [address] [place] [address] Dr. Patria Sanders Chloride [Moles/Vol] 104 mmol/L Normal 98-107 [facility] Comment on above: Performed By: #### B MP #### [facility] [place] [facility] [address] [place] [address] Dr. Patria Sanders CO2 [Moles/Vol] 28.7 mmol/L Normal 21.0-32.0 [facility] Comment on above: Performed By: #### B MP #### [facility] [address] [place] [address] Dr. Patria Sanders Creatinine [Mass/Vol] 0.80 mg/dL Normal 0.70-1.30 [facility] Comment on above: Performed By: #### B MP #### [facility] [place] [facility] [address] [address] [address] Patria Sanders EGFR-AF TRINIDADIAN >60 Normal >=60 [facility] Comment on above: Performed By: #### B MP #### [facility] [place] [facility] [address] [place] [address] Dr. Patria Sanders EGFR-NON AF TRINIDADIAN >60 Normal >=60 [facility] Comment on above: Performed By: #### B MP #### [facility] [place] [facility] [address] [address] [address] Patria Sanders Glucose [Mass/Vol] 101 mg/dL Normal 74-106 [facility] Comment on above: Performed By: #### B MP #### [facility] [place] [facility] [address] [place] [address] Dr. Patria Sanders Potassium [Moles/Vol] 4.1 mmol/L Normal 3.5-5.1 [facility] Comment on above: Performed By: #### B MP #### [facility] [address] [place] [address] Dr. Patria Sanders Sodium [Moles/Vol] 140 mmol/L Normal 136-145 [facility] Comment on above: Performed By: #### B MP #### [facility] [place] [facility] [address] [place] [address] Dr. Patria Sanders Urea nitrogen [Mass/Vol] 11.0 mg/dL Normal 7.0-18.0 [facility] Comment on above: Performed By: #### B MP #### [facility] [address] [place] [address] Dr. Patria Sanders Urea nitrogen/Creatini ne [Mass ratio] 13.8 mg/mg Normal [facility] Comment on above: Performed By: #### B MP #### [facility] [address] [place] [address] Dr. Patria Sanders PROTIMEon 09-15-2022 INR Coag (PPP) [Relative time] 1.02 {INR} Normal [facility] Comment on above: Performed By: #### P TT, PT #### [facility] [address] [place] [address] Dr. Patria Sanders INR GUIDELINES SEE BELOW Normal [facility] Comment on above: Result Comment: SANTO RED INR: 2.0 - 3.0 CONDITIONS NOT LISTED BELOW 2.5 - 3.5 FOR PROSTHETIC HEART VALVE REPLACEMENT 2.5 - 3.5 RECURRENT THROMBOSIS Performed By: #### P TT, PT #### [facility] [address] [address] [address] Patria Sanders PT Coag (PPP) [Time] 10.8 s Normal 9.0-11.6 [facility] Comment on above: Performed By: #### P TT, PT #### [facility] [place] [facility] [address] [address] [address] Patria Sanders PTTon 09-15-2022 aPTT Coag (Bld) [Time] 32.0 s Normal 22.3-36.2 [facility] Comment on above: Performed By: #### P TT, PT #### [facility] [place] [facility] [address] [address] [address] Patria Sanders Covid-19 PCR (CVDTB)on 01-04 SARS-CoV-2 (COVID-19) RNA NANCY+probe Ql (Unsp spec) Not detected Normal NOT DETECTED The [facility] Comment on above: Result Comment: This test is not yet approved or cleared by the [place] FDA. When there are no FDA-approved or cleared tests available, and other criteria are met, FDA can make tests available under an emergency access mechanism called an Emergency Use Authorization (EUA). The EUA for this test is supported by the Utility Bagger of Health and Human Service's (HHS's) declaration [...] consistent with SARS-CoV-2. Performed By: #### C VDTBH #### [facility] [place] [facility] [address] [place], [place] [address] Dr. Patria Sanders Hemoglobin A1Con 09-24-2021 EAG 128.37 Normal [facility] Comment on above: Performed By: #### A 1C #### [facility] [address], [place] [id number] HbA1c (Bld) [Mass fraction] 6.1 % High 4.0-6.0 [facility] Comment on above: Performed By: #### A 1C #### [facility] [address], [place] [id number] Testosteroneon 05-11-2021 TESTOS 314.70 ng/dL Normal 193.00-740.00 [facility] Comment on above: Performed By: #### T EST #### [facility] [address], [place] [id number] XR femur BIon 05-06-2021 XR femur BI [facility] Main [place] [address] [place] [address] XRay Report Signed Patient: Juan Miguel Jennings MR#: [id number] 25 : 1950 Acct:[id number] Age/Sex: 71 / M ADM Date: 05/06/21 Loc: ICXD Room: Type: [facility] Attending Dr: Maxwell Staley PA-C Ordering Provider: Maxwell Staley PA-C Date of Service: 05/06/21 XR/XR chest 2V*: Z01.818 ([id number]) XR/XR femur BI: Z01.818 ([id number]) XR/XR tibia/fibula BI: . 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 [facility] Vital Signs Date Time Vital Sign Value Performing Clinician Facility 07-19-2023 10:37-0500 Body height 198.1 cm Alberto Ibrahim DPM Work Phone: [facility] 07-19-2023 10:37-0500 Body mass index (BMI) [Ratio] 39.87 kg/m2 Alberto Ibrahim DPM Work Phone: [facility] 07-19-2023 10:37-0500 Body weight 156.49 kg Alberto Ibrahim DPM Work Phone: [facility] 06-20-2023 10:33-0500 Blood Pressure Location Hudson STEVENSON [facility] 06-20-2023 10:33-0500 Diastolic blood pressure 86 mm[Hg] Hudson STEVENSON [facility] 06-20-2023 10:33-0500 Heart rate 70 /min Hudson STEVENSON [facility] 06-20-2023 10:33-0500 Respiratory rate 16 /min Hudson STEVENSON [facility] 06-20-2023 10:33-0500 Systolic blood pressure 139 mm[Hg] Hudson STEVENSON [facility] 11-05-2022 10:12-0400 Blood Pressure Location Hudsonpeter STEVENSON [facility] 11-05-2022 10:12-0400 Diastolic blood pressure 78 mm[Hg] Hudson STEVENSON [facility] 11-05-2022 10:12-0400 Heart rate 68 /min Hudson STEVENSON [facility] 11-05-2022 10:12-0400 Respiratory rate 16 /min Hudsonpeter STEVENSON [facility] 11-05-2022 10:12-0400 Systolic blood pressure 130 mm[Hg] Hudson STEVENSON [facility] 11-03-2022 14:34-0400 Body temperature 97.5 [degF] [facility] 11-03-2022 14:34-0400 Diastolic blood pressure 77 mm[Hg] [facility] 11-03-2022 14:34-0400 Heart rate 72 /min [facility] 11-03-2022 14:34-0400 Respiratory rate 18 /min [facility] Schedule [facility] 11-03-2022 14:34-0400 Systolic blood pressure 140 mm[Hg] [facility] Schedule [facility] 06-18-2022 08:55-0500 Blood Pressure Location Hudson STEVENSON [facility] 06-18-2022 08:55-0500 Diastolic blood pressure 82 mm[Hg] Hudson STEVENSON [facility] 06-18-2022 08:55-0500 Heart rate 80 /min Hudson STEVENSON [facility] 06-18-2022 08:55-0500 Respiratory rate 16 /min Hudson STEVENSON [facility] 06-18-2022 08:55-0500 Systolic blood pressure 132 mm[Hg] Hudson STEVENSON [facility] 05-17-2022 09:43-0500 Blood Pressure Location Hudson STEVENSON [facility] 05-17-2022 09:43-0500 Diastolic blood pressure 92 mm[Hg] Hudson STEVENSON [facility] 05-17-2022 09:43-0500 Heart rate 63 /min Hudson STEVENSON [facility] 05-17-2022 09:43-0500 Systolic blood pressure 143 mm[Hg] Hudson STEVENSON [facility] 02-01-2022 09:48-0400 Blood Pressure Location Hudson STEVENSON [facility] 02-01-2022 09:48-0400 Diastolic blood pressure 66 mm[Hg] Hudson STEVENSON [facility] 02-01-2022 09:48-0400 Heart rate 84 /min Hudson STEVENSON [facility] 02-01-2022 09:48-0400 Respiratory rate 16 /min Hudson STEVENSON [facility] 02-01-2022 09:48-0400 Systolic blood pressure 98 mm[Hg] Hudson STEVEN[facility] 01-28-2022 13:48-0400 Diastolic blood pressure 76 mm[Hg] [facility] Schedule [facility] [employer] 01-28-2022 13:48-0400 Heart rate 56 /min [facility] [employer] 01-28-2022 13:48-0400 Respiratory rate 18 /min [facility] [employer] 01-28-2022 13:48-0400 Systolic blood pressure 135 mm[Hg] [facility] [employer] 01-28-2022 13:25-0400 Body temperature 97.39 [degF] [facility] [employer] 10-22-2020 12:25-0400 Body temperature 97.81 [degF] [facility] Schedule [facility] [employer] Work Phone: 10-22-2020 12:25-0400 Heart rate 67 /min [facility] Schedule [facility] [employer] Work Phone: 07-27-2019 08:03-0500 Body Temperature 96.3 [degF] [facility] [place] [place] 07-27-2019 08:03-0500 BP Diastolic 80 mm[Hg] [facility] [place] [place] , [place] 07-27-2019 08:03-0500 BP Systolic 129 mm[Hg] [facility] [place] [place] [facility] [place] 07-27-2019 08:03-0500 Pulse (Heart Rate) 63 /min [facility] Schedule [place] [place] 07-27-2019 08:03-0500 Respiratory Rate 20 /min [facility] [place] 03-13-2019 08:02-0400 Body Temperature 96.69 [degF] [facility] [place] 03-13-2019 08:02-0400 BP Diastolic 83 mm[Hg] [facility] [place] 03-13-2019 08:02-0400 BP Systolic 162 mm[Hg] [facility] Schedule [facility] , [place] 03-13-2019 08:02-0400 Pulse (Heart Rate) 74 /min [facility] [place] 03-13-2019 08:02-0400 Respiratory Rate 20 /min [facility] [place] [facility] [place] 01-12-2019 08:03-0400 Body Temperature 96.91 [degF] [facility] Schedule [facility] [place] 01-12-2019 08:03-0400 BP Diastolic 87 mm[Hg] [facility] Schedule [facility] , [place] 01-12-2019 08:03-0400 BP Systolic 152 mm[Hg] [facility] Schedule [facility] [place] 01-12-2019 08:03-0400 Pulse (Heart Rate) 63 /min [facility] Schedule [facility], [place] 01-12-2019 08:03-0400 Respiratory Rate 20 /min [facility] Schedule [facility] [place] Encounters Encounter Date Encounter Type Care Provider Facility Start: 12-05-2023 ambulatory Hudson STEVENSON [facility] Start: 11-09-2023 End: 11-09-20[facility] Start: 11-07-2023 End: 11-07-2023 ambulatory Hudson STEVENSON Facility:[facility] Start: 11-07-2023 End: 11-07-2023 Patient encounter procedure Hudson STEVENSON [facility] Start: 10-27-2023 End: 10-27-2023 ambulatory JORDAN DUNCAN Not Available Start: 10-12-2023 End: 10-12-2023 ambulatory JORDAN DUNCAN Not Available Start: 10-07-2023 End: 10-07-2023 ambulatory Hudsonpeter STEVENSON Facility:[facility] Start: 10-07-2023 End: 10-07-2023 Patient encounter procedure Hudson STEVENSON [facility] Start: 09-27-2023 End: 09-27-2023 ambulatory ALBERTO IBRAHIM Not Available Start: 09-09-2023 End: 09-09-2023 ambulatory Hudson STEVENSON Facility:[facility] Start: 09-09-2023 End: 09-09-2023 Patient encounter procedure Hudson STEVENSON [facility] Start: 08-15-2023 End: 08-15-2023 ambulatory Hudson STEVENSON Facility:[facility] Start: 08-15-2023 End: 08-15-2023 Patient encounter procedure Hudson STEVENSON [facility] Start: 07-19-2023 Bamboo flowsheet Alberto Tyler er DPM Work Phone: [facility] Start: 07-19-2023 Bamboo flowsheet Alberto Tyler er DPM Work Phone: [facility] Start: 07-19-2023 End: 07-19-2023 ambulatory ALBERTO IBRAHIM Not Available Start: 07-19-2023 End: 07-19-2023 Patient encounter procedure Alberto Ibrahim DPM Work Phone: [facility] Comment on above: Dermatophytosis of n ail (Primary Dx); Dystrophic nail; Diabetic polyneuropathy associated with type 2 diabetes mellitus (CMS/HCC); Nontraumatic amputation of foot, right (CMS/HCC); Nontraumatic amputation of foot, left (CMS/HCC); Acquired keratoderma Start: 07-18-2023 End: 07-18-2023 ambulatory Hudson R STEVENSON Facility:[facility] Start: 07-18-2023 End: 07-18-2023 Patient encounter procedure Hudson STEVENSON [facility] Start: 06-20-2023 End: 06-20-2023 ambulatory Hudson Smita GRAHAM Facility:[facility] Start: 06-20-2023 End: 06-20-2023 Patient encounter procedure Hudson R STEVENSON [facility] Start: 05-17-2023 End: 05-17-2023 ambulatory JORDAN DUNCAN Not Available Start: 05-12-2023 End: 05-12-2023 ambulatory [facility] Start: 05-09-2023 End: 05-09-2023 ambulatory Hudson Smita STEVENSON Facility:[facility] Start: 05-09-2023 End: 05-09-2023 Patient encounter procedure Hudson Ordoñez STEVENSON [facility] Start: 04-19-2023 End: 04-19-2023 ambulatory JORDAN DUNCAN Not Available Start: 04-08-2023 End: 04-08-2023 ambulatory [facility] Start: 04-04-2023 End: 04-04-2023 ambulatory Hudson R STEVENSON Facility:[facility] Start: 04-04-2023 End: 04-04-2023 Patient encounter procedure Hudson R STEVENSON [facility] Start: 03-07-2023 End: 03-07-2023 ambulatory Hudson STEVENSON Facility:[facility] Start: 02-08-2023 End: 02-08-2023 ambulatory JORDAN DUNCAN Facility:[facility] Start: 02-08-2023 End: 02-08-2023 Patient encounter procedure JORDAN DUNCAN [facility] Start: 01-31-2023 ambulatory Hudson Duff ty: Start: 01-03-2023 End: 01-03-2023 ambulatory Hudson STEVENSON Facility: [facility] Start: 01-03-2023 End: 01-03-2023 Patient encounter procedure [facility] Start: 12-03-2022 End: 12-03-2022 ambulatory Hudson STEVENSON Facility: [facility] Start: 12-03-2022 End: 12-03-2022 Patient encounter procedure Hudson STEVENSON [facility] Start: 11-05-2022 End: 11-05-2022 Patient encounter procedure Hudson STEVENSON [facility] [employer] Start: 11-03-2022 End: 11-03-2022 [facility] Comment on above: Polycythemia (Primar y Dx) Start: 10-25-2022 End: 10-26-2022 ambulatory ARNOLD PEOPLES Facility:[facility] Start: 10-05-2022 End: 10-06-[address] JORDAN DUNCAN . Facility:[facility] Start: 10-05-2022 End: 10-05-2022 Patient encounter procedure Hudson STEVENSON [facility] Start: 09-30-2022 End: 09-30-[address] HUDSON STEVENSON . Facility:[facility] Start: 09-27-2022 End: 09-28-2022 ambulatory ARNOLD PEOPLES Facility:[facility] Start: 09-20-2022 End: 09-21-2022 ambulatory [facility] Facility:[facility] Start: 09-20-2022 Encounter for preprocedural cardiovascular examination DR HUDSON STEVENSON . [facility] Start: 09-20-2022 Encounter for preprocedural laboratory examination DR HUDSON STEVENSON . [facility] Start: 09-20-2022 Encounter for preprocedural respiratory examination DR HUDSON STEVENSON . [facility] Start: 09-15-2022 End: 09-16-[address] HUDSON STEVENSON . Facility:[facility] Start: 09-15-2022 End: 09-16-2022 Encounter for preprocedural laboratory examination DR HUDSON STEVENSON . Facility:[facility] Start: 09-06-2022 End: 09-06-2022 Patient encounter procedure Hudson STEVENSON [facility] Start: 06-18-2022 End: 06-18-2022 Patient encounter procedure Hudson STEVENSON [facility] Start: 05-20-2022 End: 05-21-2022 ambulatory [facility] Facility:[facility] Start: 05-17-2022 End: 05-17-2022 Patient encounter procedure Hudson STEVENSON [facility] Start: 04-21-2022 End: 04-22-2022 ambulatory [facility] Facility:[facility] Start: 04-21-2022 End: 04-21-2022 Patient encounter procedure Mandy Schaefer [facility] Start: 04-09-2022 End: 04-10-2022 ambulatory [facility] Facility:[facility] Start: 03-31-2022 End: 03-31-2022 Patient encounter procedure [facility] [employer] Start: 03-22-2022 End: 03-23-2022 ambulatory [facility] Facility: Start: 03-03-2022 End: 03-03-2022 Patient encounter procedure Mandy Schaefer [facility] [employer] Start: 02-01-2022 End: 02-01-2022 Patient encounter procedure Hudson STEVENSON [facility] [employer] Start: 01-28-2022 End: 01-28-2022 Subsequent hospital visit by physician [facility] Comment on above: Polycythemia (Primar y Dx) Start: 01-18-2022 End: 01-18-[address] JORDAN DUNCAN . Facility: Start: 01-06-2022 End: 01-07-2022 ambulatory [facility] Facility: Start: 12-21-2021 End: 12-21-2021 Patient encounter procedure [facility] [employer] Start: 11-23-2021 End: 11-23-2021 Patient encounter procedure Hudson STEVENSON [facility] Start: 10-26-2021 End: 10-26-2021 Patient encounter procedure Hudson STEVENSON [facility] [employer] Start: 09-28-2021 End: 09-28-2021 Patient encounter procedure Hudson STEVENSON [facility] [employer] Start: 08-31-2021 End: 08-31-2021 Patient encounter procedure [facility] Start: 10-22-2020 End: 10-22-2020 Subsequent hospital visit by physician [facility] Med Onc Room 9 Schedule [facility] Comment on above: Polycythemia (Primar y Dx) Start: 07-27-2019 End: 07-27-2019 Subsequent hospital visit by physician [facility] Med [facility] Comment on above: Polycythemia (Primar y Dx) Start: 03-13-2019 End: 03-13-2019 Subsequent hospital visit by physician [facility] Med Onc Room 9 Schedule [facility] Comment on above: Polycythemia (Primar y Dx) Start: 01-12-2019 End: 01-12-2019 Subsequent hospital visit by physician [facility] Med Onc Room 9 [facility] Start: 02-16-2018 End: 02-17-2018 Patient encounter DEFAULT PHYSICIAN Facility:[facility] Procedures Date Procedure Procedure Detail Performing Clinician Start: 09-30-2022 Circumcision Hudson JENSEN Start: 12-17-2020 Colonoscopy Alberto pelayo DPM Work Phone: Start: 05-23-2019 foot surgery Hudson JENSEN Start: 05-13-2014 History of placement of stent for coronary artery disease S/P JORY - LCX & RCA ([id number]. kabour) [facility] Schedule BACK SURGERY Hudson STEVENSON Placement of stent Hudson OSEGUERA RECTAL CANCER SURGERY Agustin STEVENSON RIGHT VEIN REMOVED F ROM LEG Hudson STEVENSON Plan of Treatment Date Care Activity Detail Author Start: 12-17-2030 Screening for malignant neoplasm of colon [facility] Start: 05-17-2024 Medicare Annual Wellness (AWV) Medicare Annual Wellness (AWV) [facility] Start: 11-26-2023 Glaucoma screening Diabetes: Retinopathy Screening [facility] Start: 10-29-2023 GFR test (Diabetes, CKD 3-4, OR last GFR 15-59) GFR test (Diabetes, CKD 3-4, OR last GFR 15-59) [facility] Start: 10-26-2023 End: 10-26-2023 Patient encounter procedure 10/26/2023 Office Visit Oncology Newton Stevenson MD [address] [place] [address] [facility] Start: 10-12-2023 End: 10-12-2023 Patient encounter procedure 10/12/2023 9:30 AM EDT Office Visit [facility] [address] [place] [address] Jordan Duncan MD [address] [place] [address] (Fax) [facility] Start: 09-27-2023 End: 09-27-2023 Patient encounter procedure 09/27/2023 11:00 AM EDT Procedure Visit [facility] [address] [place] [id number] Alberto Ibrahim DPM [address] [facility] [place] [address] [facility] Start: 07-14-2023 Hemoglobin A1c measurement Diabetes: Hemoglobin A1C [facility] Start: 10-20-2022 End: 10-20-2022 Patient encounter procedure 10/20/2022 Office Visit Oncology Newton Stevenson MD [address] [place], [place] [id number] [facility] Start: 09-24-2022 Hemoglobin A1c measurement A1C test (Diabetic or Prediabetic) [facility] Start: 02-04-2022 Influenza vaccination Flu vaccine (#1) [facility] Start: 11-11-2021 Urine screening for protein Diabetic microalbuminuria test [facility] Start: 10-21-2021 End: 10-21-2021 Patient encounter procedure 10/21/2021 Office Visit Oncology Newton Stevenson MD [address] [place] [address] [facility] Start: 10-16-2021 COVID-19 Vaccine (4 - Booster for Pfizer series) COVID-19 Vaccine (4 - Booster for Pfizer series) [facility] Start: 10-14-2021 Lipid panel Lipids [facility] Start: 10-24-2019 End: 10-24-2019 Office Visit Alexsander [facility] Start: 07-31-2019 End: 07-31-2019 Appointment 07/31/2019 Appointment Infusion Therapy [facility] Start: 04-30-2019 End: 04-30-2019 Appointment 04/30/2019 Appointment Infusion Therapy [facility] Start: 02-04-2019 Influenza vaccination Flu vaccine (#1) [place] Start: 11-26-2018 Annual Wellness Visit (AWV) Annual Wellness Visit (AWV) [facility] Start: 08-17-2017 Creatinine measurement Creatinine monitoring [facility] [employer] Work Phone: Start: 08-17-2017 Creatinine monitoring Creatinine monitoring [place], [place] Start: 08-17-2017 Potassium monitoring Potassium monitoring [place] Start: 08-04-2017 A1C test (Diabetic or Prediabetic) A1C test (Diabetic or Prediabetic) [place] Start: 08-04-2017 Hemoglobin A1c measurement A1C test (Diabetic or Prediabetic) [facility] [employer] [facility] Start: 02-10-2017 Abdominal aortic aneurysm screening AAA screen [facility] Start: 02-10-2017 Pneumococcal 65+ years Vaccine (1 of 2 - PCV13) Pneumococcal 65+ years Vaccine (1 of 2 - PCV13) [place] Start: 01-29-2017 Shingles Vaccine (2 of 3) Shingles Vaccine (2 of 3) [facility] Start: 02-10-2015 Annual Wellness Visit (AWV) Annual Wellness Visit (AWV) [place] Start: 02-10-2002 Colon cancer screen colonoscopy Colon cancer screen colonoscopy [place] Start: 02-10-2002 Screening for malignant neoplasm of colon Colon cancer screen colonoscopy [facility] Work Phone: Start: 02-10-2002 Shingles Vaccine (1 of 2) Shingles Vaccine (1 of 2) [place], [place] Start: 02-10-1997 Screening for malignant neoplasm of colon [facility] Start: 02-10-1971 DTaP/Tdap/Td vaccine (1 - Tdap) DTaP/Tdap/Td vaccine (1 - Tdap) [facility] Start: 02-10-1971 Hepatitis B vaccine (1 of 3 - Risk 3-dose series) Hepatitis B vaccine (1 of 3 - Risk 3-dose series) [place] Start: 02-10-1970 Diabetic microalbuminuria test Diabetic microalbuminuria test [place] Start: 02-10-1970 Diabetic retinal exam Diabetic retinal exam [facility] Start: 02-10-1970 Glaucoma screening Diabetic retinal exam [facility] Start: 02-10-1970 Hepatitis C screening Hepatitis C screen [facility] Start: 02-10-1970 Urine screening for protein Diabetic Alb to Cr ratio (uACR) test [facility] Start: 1964 Depression Screen Depression Screen [facility] Start: 02-10-1963 DTaP/Tdap/Td vaccine (1 - Tdap) DTaP/Tdap/Td vaccine (1 - Tdap) [place] Start: 02-10-1962 [object Object] Diabetic foot exam [place] Start: 02-10-1962 Diabetic foot examination Diabetic foot exam [facility] Start: 02-10-1962 Diabetic retinal exam Diabetic retinal exam [place], [place] Start: 02-10-1962 Lipid panel [facility] Start: 02-10-1962 Lipid screen Lipid screen [place] Start: 1950 Annual Wellness Visit (AWV) Annual Wellness Visit (AWV) [facility] Start: 1950 Hepatitis C screen Hepatitis C screen [place], [place] Start: 1950 Hepatitis C screening Hepatitis C screen [facility] Work Phone: Start: 1950 Screening for malignant neoplasm of colon [facility] Immunizations Immunization Date Immunization Notes Care Provider Shania durham 02-28-2023 Influenza, Seasonal, Quadrivalent, Adjuvanted Alberto Ibrahim DPM Work Phone: [facility] 04-16-2022 influenza virus vacc ine, unspecified formulation Hudson STEVENSON [facility] 04-16-2022 Influenza, Seasonal, Quadrivalent, Adjuvanted Alberto Ibrahim DPM Work Phone: [facility] 03-23-2022 Moderna Bivalent Simmons ster Vaccination Alberto Ibrahim DPM Work Phone: [facility] 03-23-2022 Moderna SARS-CoV-2 50mcg/0.5mL Booster Alberto Ibrahim DPM Work Phone: [facility] 03-23-[address] 12 Years And Older Alberto Ibrahim DPM Work Phone: [facility] 03-23-2022 SARS-CoV-2 (COVID-19 ) [id number] Hudson STEVENSON [facility] 06-18-2021 SARS-CoV-2 (COVID-19 ) mRNA BNT-162b2 vax Hudson STEVENSON [facility] 05-06-2021 influenza virus vacc ine, unspecified formulation Hudson STEVENSON [facility] 05-06-2021 Influenza, Seasonal, Quadrivalent, Adjuvanted Alberto Ibrahim DPM Work Phone: [facility] 05-06-2021 SARS-CoV-2 (COVID-19 ) Ad26 vaccine, recombinant Hudson STEVENSON [facility] 08-28-2020 SARS-CoV-2 (COVID-19 ) mRNA BNT-162q0 vax Hudson STEVENSON [facility] 08-28-2020 SARS-CoV-2, Unspecified Garry Ibrahim DPM Work Phone: [facility] 08-27-2020 Pfizer Purple Cap SARS-CoV-2 Vaccination Alberto Ibrahim DPM Work Phone: [facility] 08-08-2020 SARS-CoV-2 (COVID-19 ) mRNA BNT-162b2 vax Hudson STEVENSON [facility] Comment on above: Result Comment: 2022: [id number] 08-08-2020 SARS-CoV-2, Unspecified Garry Ibrahim DPM Work Phone: [facility] 08-07-2020 Pfizer Purple Cap SARS-CoV-2 Vaccination Alberto Ibrahim DPM Work Phone: [facility] 08-04-2020 SARS-CoV-2 (COVID-19 ) Ad26 vaccine, recombinant Hudson STEVENSON [facility] 03-22-2020 influenza virus vacc ine, unspecified formulation Hudson STEVENSON [facility] 03-22-2020 Influenza, Seasonal, Quadrivalent, Adjuvanted Alberto Ibrahim DPM Work Phone: [facility] 03-06-2019 pneumococcal conjuga te vaccine, 13 valent Hudson STEVENSON [facility] 03-05-2019 influenza virus vacc ine, unspecified formulation Hudson STEVENSON [facility] 03-05-2019 influenza, high dose seasonal, preservative-free Alberto Rusher DPM Work Phone: [facility] 03-05-2019 pneumococcal polysaccharide vaccine, 23 valent Hudson STEVENSON [facility] 03-04-2019 Influenza, High-dose Seasonal, Quadrivalent, Preservative Free Alberto Rusher DPM Work Phone: [facility] 03-04-2019 pneumococcal polysaccharide vaccine, 23 valent Alberto Rusher DPM Work Phone: [facility] 03-03-2018 influenza virus vacc ine, unspecified formulation Hudson STEVENSON [facility] 03-03-2018 influenza, high dose seasonal, preservative-free Alberto Rusher DPM Work Phone: [facility] 03-03-2018 pneumococcal conjuga te vaccine, 13 valent Hudson STEVENSON [facility] 03-03-2018 pneumococcal polysaccharide vaccine, 23 valent Alberto Rusher DPM Work Phone: [facility] 03-02-2018 pneumococcal conjuga te vaccine, 13 valent Alberto Rusher DPM Work Phone: [facility] 04-06-2017 influenza virus vacc ine, unspecified formulation Hudson STEVENSON [facility] 04-06-2017 influenza, injectabl e, quadrivalent, preservative free Alberto Rusher DPM Work Phone: [facility] 12-04-2016 pneumococcal polysaccharide vaccine, 23 valent Hudson STEVENSON [facility] 12-04-2016 zoster vaccine, live Hudson STEVENSON [facility] 03-06-2016 Influenza Vaccine, unspecified formulation Mthz Schedule [facility] 03-06-2016 influenza virus vacc ine, unspecified formulation Alberto Ibrahim DPM Work Phone: [facility] 03-06-2016 Influenza, High-dose Seasonal, Quadrivalent, Preservative Free Alberto Alexandria DPM Work Phone: [facility] 03-06-2016 influenza, unspecifi ed formulation Hudson STEVENSON [facility] 01-23-2016 influenza virus vacc ine, unspecified formulation Hudsonpeter STEVENSON [facility] 01-23-2016 influenza, injectabl e, quadrivalent, preservative free Albertogarrick Ibrahim DPM Work Phone: [facility] 06-06-2015 pneumococcal polysaccharide vaccine, 23 valent Hudson STEVENSON [facility] 03-23-2014 influenza virus vacc ine, unspecified formulation Hudsonpeter STEVENSON [facility] 03-23-2014 influenza, seasonal, injectable Alberto Rusher DPM Work Phone: [facility] 04-06-2013 influenza virus vacc ine, unspecified formulation Hudson STEVENSON [facility] 04-06-2013 influenza, seasonal, injectable Alberto Rusher DPM Work Phone: [facility] 04-06-2013 zoster vaccine, live Hudson STEVENSON [facility] 04-05-2013 zoster vaccine, live Alberto Rusher DPM Work Phone: [facility] 04-21-2009 novel influenza-H1N1 -09, preservative-free, injectable Alberto Rusher DPM Work Phone: [facility] Payers Date Payer Category Payer Unknown 2017 Medicare MEDICARE MEDICAR E PART B [id number] 2017-[place] [address] Medicare [id number] 2017 Medicare xxxxxxxxxxx [id number] 1959 Medicare [id number] [id number]. [id number] 1959 Private Health Insurance [id number] 1.2.840.516474.1.13.239.2. 7.3.756306.315 1952 Unknown [id number] 2.16.840.1.425536.3.579.2. 593 1952 Unknown [id number] 2.16.840.1.104782.3.579.2. 593 1952 Unknown [id number] 2.16.840.1.015645.3.579.2. 593 1952 Unknown [id number] 2.16.840.1.198639.3.579.2. 593 1952 Unknown [id number] 2.16.840.1.982545.3.579.2. 593 1952 Unknown [id number] 2.16.840.1.631125.3.579.2. 593 1952 Unknown [id number] 2.16.840.1.304848.3.579.2. 593 1952 Unknown [id number] 2.16.840.1.466302.3.579.2. 593 1952 Unknown [id number] 2.16.840.1.852356.3.579.2. 593 1952 Unknown [id number] 2.16.840.1.019030.3.579.2. 593 1952 Unknown [id number] 2.16.840.1.165054.3.579.2. 593 1952 Unknown [id number] 2.16.840.1.872742.3.579.2. 593 1952 Unknown [id number] 2.16.840.1.907982.3.579.2. 1259 1952 Unknown [id number] 2.16.840.1.721330.3.579.2. 1259 1952 Unknown [id number] 2.16.840.1.125915.3.579.2. 125 1952 Unknown [id number] 2.16.840.1.158179.3.579.2. 1259 1952 Unknown [id number] 2.16.840.1.205627.3.579.2. 1259 1952 Unknown [id number] 2.16.840.1.601696.3.579.2. 1259 1952 Unknown [id number] 2.16.840.1.502325.3.579.2. 72 1952 Unknown [id number] 2.16.840.1.572006.3.579.2. 72 1952 Unknown [id number] 2.16.840.1.799515.3.579.2. 72 1952 Unknown [id number] 2.16.840.1.613176.3.579.2. 72 1952 Unknown [id number] 2.16.840.1.236625.3.579.2. 72 1952 Unknown [id number] 2.16.840.1.505828.3.579.2. 72 1952 Unknown [id number] 2.16.840.1.648147.3.579.2. 72 1952 Unknown [id number] 2.16.840.1.941597.3.579.2. 727 1952 Unknown [id number] 2.16.840.1.337406.3.579.2. 727 1952 Unknown [id number] 2.16.840.1.028592.3.579.2. 727 1952 Unknown [id number] 2.16.840.1.756505.3.579.2. 727 1952 Unknown [id number] 2.16.840.1.722037.3.579.2. 727 1952 Unknown [id number] 2.16.840.1.409196.3.579.2. 727 1952 Unknown [id number] 2.16.840.1.068590.3.579.2. 727 1952 Unknown [id number] 2.16.840.1.390510.3.579.2. 173 1952 Unknown [id number] 2.16.840.1.898265.3.579.2. 173 Medicare [id number] Social History Date Type Detail Facility Start: 10-18-2018 End: 11-05-2022 Tobacco smoking status NHIS Former smoker [place] End: 06-06-2012 History of tobacco use Current [place] Start: 10-18-2018 End: 05-17-2023 Cigarettes smoked current (pack per day) - Reported [facility] Start: 10-18-2018 End: 05-17-2023 Alcohol intake No [place] Start: 01-23-2014 Tobacco Comment quit smoking in 1999 [place], [place] Start: 1950 Sex Assigned At Not on file M [place], [place] Start: 10-18-2018 End: 10-21-2021 Alcohol intake Current non-drinker of alcohol (finding) [place] Start: 10-22-2020 End: 04-19-2023 Tobacco use and exposure Never used [facility] Start: 01-18-2022 End: 01-28-2022 Exposure to SARS-CoV-2 (event) Not sure [facility] End: 06-06-2012 History of tobacco use Cigarette Smoker [employer] Work Phone: Start: 05-17-2023 End: 07-19-2023 Alcohol [...] 06-20-2023 Functional Status N/A [facility] 11-05-2022 Functional Status N/A [facility] 06-18-2022 Functional Status N/A [facility] 05-17-2022 Functional Status N/A [facility] 02-01-2022 Functional Status N/A [facility] Clinical Notes 10-22-2020 to 07-19-2023 Alberto Ibrahim DPM - 07/19/2023 10:30 AM ESTPatient InstructionsTorie Lopez RN - 11/03/2022 2:30 PM EDTTorie [...] effectively healed following treatment at [facility] wound Center. Currently relates no bleeding or [...] , Rfl: cholecalciferol (Vitamin D-3) 50 MCG (2000 UT) tablet, Take by mouth., Disp: , Rfl: [...] History: Procedure Laterality Date BACK SURGERY 2010 Bio[facility] molina CATARACT EXTRACTION Left 2019 [facility] OTHER SURGICAL HISTORY 03/2017 lesions on bottom of both feet, [place] OTHER SURGICAL HISTORY 4 stents Geraldo Stafford - 1997 OTHER SURGICAL HISTORY rectal cancer; surgery, chemo TX and radiation TX. OTHER SURGICAL HISTORY 09/30/2022 Dorsal Slit, Graham, RADHA TOTAL KNEE ARTHROPLASTY Right 2014 Alexsander Brennan TOTAL KNEE ARTHROPLASTY Left 05/25/[address] HENSON Family History Family History Problem Relation Name Age of Onset Heart disease Mother Diabetes Mother Heart disease Father Diabetes Brother Colon cancer Brother Objective Physical Exam General assessment. Alert and oriented. Pleasant disposition. Presents wearing current Dr. Gruber therapeutic footwear with custom orthoses. Vascular: Pedal pulses 1/4. CFT remains brisk on digits. Unremarkable for [...] with wound right foot; effectively managed at [facility] wound care center. Care plan: conservative and [...] or corrected. Thank you for your understanding. Alberto Ibrahim DPM documented in this encounter [facility] 07-19-2023 Instructions Alberto Ibrahim DPM - 07/19/2023 10:30 AM EST As noted documented in this encounter [facility] 06-20-2023 Hospital Discharge instructions Patient Education 06/20/2023 [...] therapy. Follow these instructions at home: Take yhgj-xoc-hqyccgy and prescription medicines only as told by [...] provider. Document Revised: 01/22/2021 Document Reviewed: 01/22/2021 [employer] Patient Education 2022 Dailyevent. Follow Up Care 02/08/2023 12:23:35 With:GRAHAM NOLASCO, Hudson Ordoñez, URL Address: [facility] [address], [place] [phone] When: Unknown Comments:6 mos w/ PSA and T level (pt to also get PSA now) [facility] 04-08-2023 Note [facility] Subjective Juan Miguel Jennings is a [...] of colon cancer Testicular hypofunction Hx of detention use of blood thinners Internal derangement of [...] man with prior history of CAD, s/p RI and stenting procedures in the past. He [...] Pravastatin Other Rosuvastatin (more content not included)... [facility] 11-05-2022 Hospital Discharge instructions Patient Education [...] urethra. Follow these instructions at home: Take hsqk-fdv-suihwvo and prescription medicines only as told by [...] provider. Document Revised: 12/09/2021 Document Reviewed: 12/09/2021 Elsevier Patient Education 2022 Dailyevent. Follow Up Care 05/17/2022 10:46:35 With:GRAHAM NOLASCO, Hudson Ordoñez, URL Address: [facility] [address] [place] [address]- When: Unknown [facility] 11-03-2022 History of Present illness Narrative Patient [...] see for visit documented in this encounter [facility] Work Phone: 09-15-2022 Note EXAM: XR CHEST 2 V HISTORY: Pre-surgery evaluation COMPARISON: None. TECHNIQUE: PA and lateral views of the chest. FINDINGS: The cardiomediastinal silhouette is normal. No focal consolidation is identified. There is no pneumothorax. No pleural effusion is noted. The osseous structures are intact. IMPRESSION: No acute cardiopulmonary process. Electronically authenticated by: DARRIUS BOLTON Date: 2022-09-15 12:26 [facility] 06-18-2022 Hospital Discharge instructions Patient Education [...] urethra. Follow these instructions at home: Take fihx-xil-iwnekcj and prescription medicines only as told by [...] 05/23/2006 Document Revised: 04/17/2019 Document Reviewed: 06/27/2017 [employer] Patient Education 2020 Dailyevent. Follow Up Care 06/14/2022 09:33:13 With:GRAHAM NOLASCO, Hudson Ordoñez, URL Address: [address] [place], [place] [id number]- When: Unknown [facility] 05-17-2022 Hospital Discharge instructions Patient Education 05/17/2022 [...] urethra. Follow these instructions at home: Take mcmd-rng-wgotbrx and prescription medicines only as told by [...] 05/23/2006 Document Revised: 04/17/2019 Document Reviewed: 06/27/2017 [employer] Patient Education 2020 Dailyevent. Follow Up Care 04/21/2022 09:42:50 With:GRAHAM NOLASCO, Hudson Ordoñez, URL Address: [facility] [address], [place] [address]- When: Unknown [facility] 03-23-2022 Note PROCEDURE: XR FOOT R T [...] 3. Stable chronic changes. Electronically authenticated by: ALBERTO PAYAN Date: 2022-03-23 06:26 [facility] 02-01-2022 Hospital Discharge instructions Patient Education [...] urethra. Follow these instructions at home: Take ukce-yne-lvxvzom and prescription medicines only as told by [...] 05/23/2006 Document Revised: 04/17/2019 Document Reviewed: 06/27/2017 [employer] Patient Education 2020 Dailyevent. Follow Up Care 08/03/2021 15:20:11 With:GRAHAM NOLASCO, Hudson Ordoñez, URL Address: [address] [place] [address]- When: Unknown [facility] 10-22-2020 History of Present illness Narrative 1225 Patient arrives ambulating from [facility] for phlebotomy. No complaints at this time. [...] ambulating without complaints [facility]: Evaluation + Plan note Future Appointments Appointment Date:09/28/2021 09:00:00 AM Scheduled Provider: Location:[facility] Appointment Type:URO Nurse Visit Appointment Date:02/01/2022 09:45:00 AM Scheduled Provider:Hudson STEVENSON MD Location:[facility] Appointment Type:URO Office Visit [facility] Evaluation + Plan note Future Appointments Appointment Date:10/26/2021 09:00:00 AM Scheduled Provider: Location:[facility] [place] Appointment Type:URO Nurse Visit Appointment Date:02/01/2022 09:45:00 AM Scheduled Provider:Hudson STEVENSON MD [facility] Type:URO Office Visit [facility] Evaluation + Plan note Future Appointments Appointment Date:11/23/2021 09:00:00 AM Scheduled Provider: [facility] Appoint[facility] Type:URO Nurse Visit Appointment Date:02/01/2022 09:45:00 AM Scheduled Provider:Hudson STEVENSON MD [facility] Appoint[facility] Type:URO Office Visit [facility] Evaluation + Plan note Future Appointments Appointment Date:12/21/2021 09:00:00 AM Scheduled Provider: Location:[facility] [place] Appointment Type:URO Nurse Visit Appointment Date:02/01/2022 09:45:00 AM Scheduled Provider:Hudson STEVENSON MD [facility] App[facility] Type:URO Office Visit [facility] Evaluation + Plan note Future Appointments Appointment Date:02/01/2022 09:45:00 AM Scheduled Provider:Hudson STEVENSON MD Location:[facility] [place] Appointment Type:URO Office Visit Diagnostic Tests PendingTestosterone Level Total 12/21/21 [facility] Evaluation + Plan note Future Appointments Appointment Date:03/01/2022 09:30:00 AM Scheduled Provider: Location:[facility] Appointment Type:URO Nurse Visit Diagnostic Tests PendingTestosterone Level Total 04/06/22PSA Total 03/06/22 [facility] Evaluation + Plan note Future Appointments Appointment Date:03/31/2022 08:15:00 AM Scheduled Provider[facility] Type[facility] Nurse Visit [facility] Evaluation + Plan note Future Appointments Appointment Date:04/21/2022 09:15:00 AM Scheduled Provider: Location:[facility] Appointment Type:URO Nurse Visit [facility] Evaluation + Plan note Future Appointments Appointment Date:05/19/2022 08:00:00 AM Scheduled Provider:Mandy Schaefer MD Location:[facility] Appointment Type:URO Office Visit Diagnostic Tests PendingPSA Total 04/16/22Testosterone Level Total 04/16/22 [facility] Evaluation + Plan note Future Appointments Appointment Date:06/14/2022 09:00:00 AM Scheduled Provider: Location:[facility] Appointment Type:URO Nurse Visit Appointment Date:11/15/2022 08:45:00 AM Scheduled Provider:Hudson STEVENSON MD Location:[facility] Appointment Type:URO Office Visit Diagnostic Tests PendingPSA Total 05/17/22Testosterone Level Total 05/17/22 [facility] Evaluation + Plan note Future Appointments Appointment Date:09/06/2022 09:00:00 AM Scheduled Provider: Location:[facility] Appointment Type:URO Nurse Visit Appointment Date:11/15/2022 08:45:00 AM Scheduled Provider:Hudson STEVENSON MD [facility] Type:[facility]O Office Visit [facility] Evaluation + Plan note Future Appointments Appointment Date:10/05/2022 09:00:00 AM Scheduled Provider: [facility] Type:URO Nurse Visit Appointment Date:10/29/2022 08:45:00 AM Scheduled Provider:Hudson STEVENSON MD [facility] Appointment Type:URO Office Visit Appointment Date:11/05/2022 09:45:00 AM Scheduled Provider:Hudson STEVENSON MD [facility] Appointment Type:URO Office Visit [facility] [employer] Evaluation + Plan note Future Appointments Appointment Date:11/05/2022 09:45:00 AM Scheduled Provider:Hudson STEVENSON MD Location:[facility] Appointment Type:URO Office Visit [facility] [employer] Evaluation + Plan note Future Appointments Appointment Date:12/03/2022 09:15:00 AM Scheduled Provider: Location:[facility] Appointment Type:URO Nurse Visit Diagnostic Tests PendingTestosterone Level Total 11/05/22PSA Total 11/05/[address] [facility] Evaluation + Plan note Future Appointments Appointment Date:01/03/2023 08:15:00 AM Scheduled Provider: Location:[facility] Appointment Type:URO Nurse Visit [facility] [employer] Evaluation + Plan note Future Appointments Appointment Date:01/31/2023 08:45:00 AM Scheduled Provider: [facility] Type:URO Nurse Visit [facility] Evaluation + Plan note Future Appointments Appointment Date:03/07/2023 08:45:00 AM Scheduled Provider: Location:[facility] Appointment Type:URO Nurse Visit Appointment Date:04/04/2023 08:45:00 AM Scheduled Provider: Location:[facility] Appointment Type:URO Nurse Visit Appointment Date:05/02/2023 08:45:00 AM Scheduled Provider: Location:[facility] Appointment Type:URO Nurse Visit Appointment Date:05/27/2023 09:45:00 AM Scheduled Provider:Hudson STEVENSON MD Location:[facility] Appointment Type:URO Office Visit [facility] Evaluation + Plan note Future Appointments Appointment Date:05/02/2023 08:45:00 AM Scheduled Provider: Location:[facility] Appointment Type:URO Nurse Visit Appointment Date:06/20/2023 10:30:00 AM Scheduled Provider:Hudson STEVENSON MD Location:[facility] Appointment Type:URO Office Visit [facility] Evaluation + Plan note Future Appointments Appointment Date:06/20/2023 10:30:00 AM Scheduled Provider:Hudson STEVENSON MD Location:[facility] Appointment Type:URO Office Visit Diagnostic Tests PendingTestosterone Level Total 05/09/23 [facility] Evaluation + Plan note Future Appointments Appointment Date:07/18/2023 09:30:00 AM Scheduled Provider: Location:[facility] Appointment Type:URO Nurse Visit Diagnostic Tests PendingPSA Total 06/20/23Testosterone Level Total 06/20/23 [facility] Evaluation + Plan note Future Appointments Appointment Date:08/15/2023 10:00:00 AM Scheduled Provider: Location:[facility] Appointment Type:URO Nurse Visit [facility] Evaluation + Plan note Future Appointments Appointment Date:09/09/2023 08:30:00 AM Scheduled Provider: Location:[facility] Appointment Type:URO Nurse Visit [facility] Evaluation + Plan note Future Appointments Appointment Date:10/07/2023 08:30:00 AM Scheduled Provider: Location:[facility] Appointment Type:URO Nurse Visit [facility] Evaluation + Plan note Future Appointments Appointment Date:11/07/2023 09:00:00 AM Scheduled Provider: Location:[facility] Appointment Type:URO Nurse Visit [facility] Evaluation + Plan note Future Appointments Appointment Date:12/05/2023 10:45:00 AM Scheduled Provider:Hudson STEVENSON MD Location:[facility] Appointment Type:URO Office Visit [facility] [employer] Evaluation note Diagnosis Polycythemia- Primary Polycythemia vera documented in this encounter [employer] Phone: evaluation note* Diagnosis Polycythemia- Primary Polycythemia vera documented in this encounter KITTY ZUÑIGAAUGUST [employer] Phone: [email or web address] note* Diagnosis Dermatophytosis of nail- Primary Dystrophic nail Other specified disease of nail Diabetic polyneuropathy associated with type 2 diabetes mellitus (CMS/HCC) Nontraumatic amputation of foot, right (CMS/HCC) Nontraumatic amputation of foot, left (CMS/HCC) Acquired keratoderma [facility] N[facility]ative No data available for this section [facility] [employer] Hospital Discharge instructions No data available for this section [facility] [employer] progress note No data available for this section [facility] [employer] Summary Purpose Family History No Family History [...] FoundDocuments on File Type Date Recorded Patient Interventional Radiology Tech Expl anation Advance Directives and Livin g Will Advance Directives and Livin g Will 08/31/2013 9:46 AM Power of General Utility Maintenance Repairer Power of General Utility Maintenance Repairer 08/31/2013 9:46 AM Latest Code Status on File Code Status Date Activated Date Inactivated Comments Full Code 08/06/2016 9:06 AM 08/09/2016 5:53 PM Full Code 08/04/2016 9:28 PM 08/06/2016 9:06 AM Full Code 05/15/2015 12:42 PM 05/19/2015 6:52 PM Full Code 05/12/2015 11:22 AM 05/15/2015 12:42 PM Full Code 05/13/2014 2:36 PM 05/13/2014 9:20 PM Documents on File Type Date Recorded Patient Interventional Radiology Tech Expl anation ACP-Advance Directive ACP-Power of General Utility Maintenance Repairer ACP-Advance Directive 08/31/2013 9:46 AM ACP-Power of General Utility Maintenance Repairer 08/31/2013 9:46 AM Documents on File Type Date Recorded Patient Interventional Radiology Tech Expl anation ACP-Advance Directive 08/31/2013 9:46 AM ACP-Power of General Utility Maintenance Repairer 08/31/2013 9:46 AM Latest Code Status on [...] Documents on File Type Date Recorded Patient Interventional Radiology Tech Expl anation Advance Directives and Living Will 11/20/2019 2018-05-09 Living Wi ll Advance Directives and Living Will 11/20/2019 2018-05-09 Power Of General Utility Maintenance Repairer History of Present Illness * Luh Hoffman [...] section and content) DATE CREATED AUTHOR 11/24/2017 [facility] DATE CREATED AUTHOR AUTHOR'S ORGANIZ ATION 03/15/2018 [facility] DATE CREATED AUTHOR AUTHOR'S ORGANIZ ATION 07/01/2021 [facility] DATE CREATED AUTHOR AUTHOR'S ORGANIZ ATION 09/26/2021 [facility] Specialist DATE CREATED AUTHOR AUTHOR'S ORGANIZ ATION 11/13/2022 [facility] DATE CREATED AUTHOR AUTHOR'S ORGANIZ ATION 04/09/2023 [facility] DATE CREATED AUTHOR AUTHOR'S ORGANIZ ATION 10/28/2023 [facility] DATE CREATED AUTHOR AUTHOR'S ORGANIZ ATION 10/29/2023 [facility] EPIC DATE CREATED AUTHOR AUTHOR'S ORGANIZ ATION 11/10/2023 [facility] DATE CREATED AUTHOR AUTHOR'S ORGANIZ ATION 11/10/2023 [facility] pital Care Team (unrecognized sect ion and content) Ware Carrier Relationship Specialty Start Date End Date Jordan Duncan MD PCP - General 07/25/19 [employer] Relationship Specialty Start Date End Date Jordan Duncan MD [address] [place] [address] PCP - General Family Medicine 10/25/22 Mitch Mello MD [address] [place] [address] Referring Physician Cardiology 05/17/23 Jr. Anuja Henson DO [address] [facility] [address] [place] [address] Referring Physician Orthopaedic Surgery 05/17/23 Alberto Ibrahim DPM [address] [address] Referring Physician Podiatry 05/17/23 [employer] Relationship Specialty Start Date End Date Jordan Duncan MD [address] [place] [address] PCP - General Family Medicine 10/25/22 Mitch Mello MD [address] [place] [address] Referring Physician Cardiology 05/17/23 Jr. Anuja Henson DO [address] [facility] [address] [place] [address] Referring Physician Orthopaedic Surgery 05/17/23 Alberto Ibrahim DPM [address] [address] Referring Physician Podiatry 05/17/23 Reason for Visit [...] BE BASED ON THE PRIMARY CLINICAL RECORDS. [email or web address] [facility]. provides no warranty or guarantee of the accuracy or completeness of information in this document.
[2023-11-22 05:07] LABS: Testosterone 412 ng/dL (264-916)
== END 2023-11-21 07:36 | disposition home or self-care (01) ==
LOC: LAB 07:37
PROVIDERS: PCP Family Medicine; Visit Provider Urology
DX: E29.1 Testicular hypofunction (principal); R39.15 Urgency of urination
CPT/HCPCS: 36415; 84403

== ENCOUNTER 2024-03-02 09:56 | Outpatient (OUT) | payer MEDICARE, SELFPAY ==
--- OUTSIDE RECORDS SUMMARY | 2024-03-02 10:09 | XMS_ITS | CCD ---
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 Name Role Phone PHYSICIAN, DEFAULT Unavailable Unavailable PHYSICIAN, DEFAULT Unavailable Unavailable Diego Bartlett Primary Care Provider [phone] Jordan Duncan Primary Care Provider Jordan Duncan MD Primary Care Provider [phone] JORDAN DUNCAN Primary Care Physician [phone] Jordan Duncan MD Primary Care Provider JORDAN DUNCAN Primary Care Physician Unavail able Jordan Duncan MD Primary Care Provider [phone] ENEDINA BOSS Attending Unavailable HEMEYER ., DR [...] Primary Care Unavailable STEVENSON ., DR OBANDO Consulting Unavailable [...] ., DR OBANDO Admitting Unavailable DARRIUS BOLTON Unavailable BEENA, PETER Marion Attending Unavailable HIGHLANDER, PETER D Admitting Unavailable HEMEYER ., DR ALATORRE Primary Care Unavailable ENEDINA BOSS Attending Unavailable BEENA PETER Marion Admitting Unavailable HEMEYER ., DR ALATORRE Primary Care Unavailable ANUJA DENTON Attending Unavailable Hemeyer Jordan NOLASCO Primary Care Provider Mitch Mello MD Unavailable Jr. Anuja Henson DO Unavailable Alexandria DALAL, Alberto Xiao Unavailable [phone] WILLI SANCHEZ Referring Unavailable HEMEYER, JORDAN Brown Primary Care Unavailable WILLI SANCHEZ Referring Unavailable HEMEYER, EDANGUS Brown Primary Care Unavailable RUSHER, ALBERTO Xiao Attending Unavailable RUSHER, ALBERTO Xiao Attending Unavailable HEMEYER, JORDAN Brown Attending Unavailable HEMEYER, JORDAN Brown Attending Unavailable RUSHER, ALBERTO Xiao Attending Unavailable RUSHER, ALBERTO Xiao Attending Unavailable HEMEYER, JORDAN Brown Attending [...] Attending Unavailable STEVENSON, Hudson R Attending Unavailable Orzech, Fernanda X Attending Unavailable STEVENSON, Hudson R Attending Unavailable STEVENSON, Hudson R Attending Unavailable STEVENSON, Hudson R Attending Unavailable STEVENSON, Hudson R Attending Unavailable Allergies Allergy Classification Reported Allergen(s) Allergy Type Date of Onset Reaction(s) Facility (4 sources) Clindamycin/Linc omycin Propensity to adverse reactions to drug 8 [place], [place] (2 sources) Clindamycin Drug Allergy 2 [facility] (3 sources) glipiZIDE; 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: [GLIPIZIDE] Drug Allergy 2 Diarrhea [employer] Work Phone: (5 sources) metFORMIN; 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: [METFORMIN] Drug Allergy 2 Diarrhea, Unknown [employer] Work Phone: (5 sources) Pravastatin; 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: [PRAVASTATIN] Drug Allergy 2 Unknown [employer] Work Phone: (3 sources) rosuvastatin; 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: [ROSUVASTATIN] Drug Allergy 2 [employer] Work Phone: (2 sources) Clindamycin; 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: [CLINDAMYCIN] Drug Allergy 7 [facility] (1 source) glipiZIDE Drug Allergy 7 [facility] (1 source) metFORMIN Drug Allergy 7 [facility] (3 sources) ezetimibe; 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: [EZETIMIBE] Drug Allergy 2 Unknown [facility] (2 sources) Clindamycin Drug Allergy 2 Diarrhea [facility] (2 sources) glipiZIDE Drug Allergy 2 Diarrhea, Unknown [facility] (2 sources) Rosuvastatin calcium Allergy to substance 1 Unknown [facility] Medications Current Medications Medication Drug Class(es) [...] Vitamin D cholecalciferol (Vitamin D-3) 50 MCG (2000 UT) tablet Take by mouth. 0 Active Cholecalciferol (VITAMIN D3) 50 MCG (2000 UT) TABS Take by mouth daily 0 Active Cholecalciferol (VITAMIN D3) 3000 UNITS TABS Take by mouth daily 0 Active Cholecalciferol (VITAMIN D3) 3000 UNITS TABS Take by mouth. 0 Active cyclobenzaprine hydrochloride 10 mg oral tablet (12 sources) Muscle Relaxant Start: 04-19-2023 take 1 tablet by mouth three times daily as needed for muscle spasms cyclobenzaprine 10 mg Tab 10 mg = 1 tab(s), Oral, TID, PRN for spasm, # 30 tab(s), Refills(s) 0 Start Date: 06/20/23 Status: Ordered diclofenac sodium 75 mg delayed release oral tablet (12 sources) Nonsteroidal Anti-inflammatory Drug Start: 05-17-2023 End: [...] mg by mouth daily 0 Active Metoprolol (18 sources) beta-Adrenergic Justice Start: 06-20-2023 METOPR OLOL TARTRATE 100 MG TAB METOPROLOL TARTRATE 100 MG TAB Start Date: 06/20/23 Status: Ordered Start: 04-20-2023 End: 10-17-2023 take 1.5 tablets by mouth every twenty-four hours in the morning metoprolol succinate XL (Toprol XL) 100 MG 24 hr tablet Indications: Atherosclerosis of [place] coronary artery of [place] heart without angina pectoris (CMS/HCC) Take 1.5 [...] Daily, # 90 tab(s), Refills(s) 3, Pharmacy: [facility]/pharmacy #[id number], 198, cm, 11/05/22 10:14:00 EDT, [...] 02/25/20 Status: Ordered take 1 tablet by piper once daily pioglitazone (ACTOS) 30 MG tablet Take 1 tablet by mouth daily 0 Active pravastatin sodium 40 mg oral tablet (20 sources) HMG-CoA Reductase Inhibitor Start: 02-25-2020 pravastatin 40 mg Ta b Refills(s) 0 Start Date: 02/25/20 Status: Ordered take 2 tablets by mouth once pablo ly pravastatin (PRAVACHOL) 20 MG tablet Take 40 mg by mouth daily. 0 Active sucralfate 1000 mg oral tablet (4 sources) Aluminum Complex Start: 12-05-2023 sucralfate 1 g Tab Refills(s) 0 Start Date: 12/05/23 Status: Ordered tamsulosin hydrochloride 0.4 mg oral capsule (20 sources) alpha-Adrenergic Justice Start: 01-11-2024 take 1 capsule by mouth twice daily tamsulosin 0.4 mg Cap 0.4 mg = 1 cap(s), Oral, BID, # 180 cap(s), Refills(s) 3, Pharmacy: [facility]/pharmacy #[id number], 198, cm, 12/05/23 10:49:00 EDT, Height/Length Dosing, 150.3, kg, 12/05/23 10:49:00 EDT, Weight Dosing Start Date: 01/11/24 Status: Ordered Start: 05-26-2023 take 1 capsule by mo [facility] once daily tamsulosin 0.4 mg Cap 0.4 mg = 1 cap(s), Oral, Daily, # 90 cap(s), Refills(s) 3, Pharmacy: [facility]/pharmacy #[id number], 198, cm, 11/05/22 10:14:00 EDT, Height/Length Dosing, 150, kg, 11/05/22 10:14:00 EDT, Weight Dosing Start Date: 05/26/23 Status: Ordered Start: 06-18-2022 take 1 capsule by [facility] once daily tamsulosin 0.4 mg Cap 0.4 mg = 1 cap(s), Oral, Daily, # 90 cap(s), Refills(s) 3, Pharmacy: [facility]/pharmacy #[id number], 198, cm, 06/18/22 9:10:00 EST, Height/Length Dosing, 164, kg, 06/18/22 9:10:00 EST, Weight Dosing Start Date: 06/18/22 Status: Ordered take 1 capsule by [facility] every twenty-four hours at bedtime tamsulosin (Flomax) 0.4 MG 24 hr capsule Take 0.4 mg by mouth at bedtime 0 Active 1 ml testosterone cypionate 200 mg/ml injection (8 sources) Androgen Start: 07-12-2017 testosterone c ypionate (DEPOTESTOTERONE CYPIONATE) 200 MG/ML injection Inject 1 mL into the muscle. Once a month 4 07/12/2017 Active testosterone cypionate 200 mg/mL IM Richelle (18 sources) Start: 01-03-2024 testosterone c ypionate 200 mg/mL IM Richelle 400 mg, IntraMuscular, q4wk, # 10 mL, Refills(s) 1, Pharmacy: [facility]/pharmacy #[id number], 198, cm, 12/05/23 10:49:00 EDT, Height/Length Dosing, 150.3, kg, 12/05/23 10:49:00 EDT, Weight Dosing Start Date: 01/03/24 Status: Ordered Start: 06-20-2023 testosterone c ypionate 200 mg/mL IM Richelle 450 mg, IntraMuscular, q4wk, # 10 mL, Refills(s) 1, Pharmacy: [facility]/pharmacy #[id number], 198, cm, 06/20/23 11:05:00 EST, Height/Length Dosing, 149, kg, 06/20/23 11:05:00 EST, Weight Dosing Start Date: 06/20/23 Status: Ordered Start: 05-09-2023 testosterone c ypionate 200 mg/mL IM Richelle 400 mg, IntraMuscular, q4wk, # 10 mL, Refills(s) 1, [id number], cm, 11/05/22 10:14:00 EDT, Height/Length Dosing, 150, kg, 11/05/22 10:14:00 EDT, Weight Dosing Start Date: 05/09/23 Status: Ordered Start: 02-08-2023 testosterone c ypionate 200 mg/mL IM Richelle 400 mg, IntraMuscular, q4wk, # 10 mL, Refills(s) 2, [id number], cm, 11/05/22 10:14:00 EDT, Height/Length Dosing, 150, kg, 11/05/22 10:14:00 EDT, Weight Dosing Start Date: 02/08/23 Status: Ordered Start: 08-27-2022 testosterone c ypionate 200 mg/mL IM Richelle 400 mg, IntraMuscular, q4wk, # 10 mL, Refills(s) 2, [id number], cm, 06/18/22 9:10:00 EST, Height/Length Dosing, 164, kg, 06/18/22 9:10:00 EST, Weight Dosing Start Date: 08/27/22 Status: Ordered testosterone cypionate 200 mg/mL intramuscular solution (17 sources) Start: 02-01-2022 testosterone c ypionate 200 mg/mL intramuscular solution 400 mg = 2 mL, IntraMuscular, q4wk, 400mg once a month, # 10 mL, Refills(s) 3, [id number] 198, cm, 02/01/22 9:53:00 EDT, Height/Length Dosing, 166, kg, 02/01/22 9:53:00 EDT, Weight Dosing Start Date: 02/01/22 Status: Ordered Start: 11-23-2021 testosterone c ypionate 200 mg/mL intramuscular solution 350 mg, IntraMuscular, q4wk, # 10 mL, Refills(s) 1, Pharmacy: [facility]/pharmacy #[id number], 198, cm, 08/03/21 14:37:00 EST, Height/Length Dosing, 166, kg, 08/03/21 14:37:00 EST, Weight Dosing Start Date: 11/23/21 Status: Ordered Start: 08-03-2021 testosterone c ypionate 200 mg/mL intramuscular solution 350 mg, IntraMuscular, q4wk, # 10 mL, Refills(s) 1, Pharmacy: [facility]/pharmacy #[id number], 198, cm, 08/03/21 14:37:00 EST, [...] Coronary arteriosclerosis; 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: [Atherosclerotic heart disease of [place] coronary artery without angina pectoris] Onset: 04-08-2017 [...] 01-13-2023 01-11-2023 Chronic 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 (1 source) roasterman (current) use of anticoagulants; 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: [HYDROELECTRIC COMPONENT MACHINIST CURRNT USE ANTICOAGULANTS] Onset: 10-12-2022 Episodic 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 (1 source) long-term (current) use of aspirin; 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: [HYDROELECTRIC COMPONENT MACHINIST CURRENT USE OF ASPIRIN] Onset: 10-12-2022 Episodic 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 (1 source) long-term (current) use of oral hypoglycemic drugs; 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: [HYDROELECTRIC COMPONENT MACHINIST USE ORAL HYPOGLYCEMIC DX] Onset: 10-12-2022 Episodic 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 (1 source) Other intermediate designer (current) drug therapy; 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: [OTH HYDROELECTRIC COMPONENT MACHINIST CURRENT DRUG THERAPY] Onset: 09-20-2022 Episodic Other [...] Onset: 05-25-2021 05-17-2023 Chronic Other endocrine disorders (18 sources) Disorder of pituitary gland; 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: [Disorder of pituitary gland, unspecified] Onset: 08-31-2021 Chronic Other endocrine disorders (20 sources) Hypogonadism 01-01-2019 Chronic Other endocrine disorders (20 sources) Male hypogonadism; 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: [Testicular hypofunction] Onset: 01-11-2023 01-01-2019 Chronic Other endocrine disorders (7 sources) Testicular hypofunction; 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: [Testicular hypofunction] Onset: [...] of left knee] Onset: 01-24-20 Resolved : 01-14-20 23 01-13-2023 Chronic Mood disorders (2 sources) Mood disorders Onset: 05-17-20 23 05-17-2023 Other connective tissue disease (2 sources) History of total knee arthroplasty; 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: [Presence of left artificial knee joint] Onset: 06-03-20 Resolved : 05-17-2005-17-2023 Chronic Other connective tissue disease (1 source) [...] 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: [Cellulitis of right toe] Onset: 08-05-19 17 Resolved : 01-14-20 23 08-05-2016 Episodic Unclassified (3 sources) Patient encounter status; 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: [Screening for colorectal cancer] Onset: 02-13-20 14 Resolved : 04-03-20 18 04-03-2018 Unclassified (1 source) CONTACT W/AND (SUSP) EXPOS COVID-19; 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: [CONTACT W/AND (SUSP) EXPOS COVID-19] Onset: 01-19-20 Results Test Name Value Interpretation Reference Range Facil ity CBC W/AUTO DIFFon 02-22-2024 ABS IMMATURE GRAN 0.02 Normal [facility] ABS NEUTROPHILS 4.23 K/uL Normal 1.50-7.50 [facility] Basophils (Bld) [#/Vol] 0.05 10*3/uL Normal 0.00-0.20 [facility] Basophils/100 WBC (Bld) 0.7 % Normal [facility] Eosinophils (Bld) [#/Vol] 0.39 10*3/uL Normal 0.00-0.50 [facility] Eosinophils/100 WBC (Bld) 5.8 % Normal [facility] Erythrocyte distribution width (RBC) [Ratio] 13.8 % Normal 11.5-15.0 [facility] Hematocrit (Bld) [Volume fraction] 54.3 % High 40.0-51.0 [facility] Hemoglobin (Bld) [Mass/Vol] 17.8 g/dL High 13.5-17.0 [facility] IMMATURE GRAN 0.3 % Normal [facility] Lymphocytes (Bld) [#/Vol] 1.27 10*3/uL Normal 1.00-4.00 [facility] Lymphocytes/100 WBC (Bld) 18.9 % Normal [facility] MCH (RBC) [Entitic mass] 32.0 pg Normal 25.0-33.0 [facility] MCHC (RBC) [Mass/Vol] 32.8 g/dL Normal 31.0-36.0 [facility] MCV (RBC) [Entitic vol] 97.7 fL Normal 80.0-99.0 [facility] Monocytes (Bld) [#/Vol] 0.77 10*3/uL Normal 0.20-1.00 [facility] Monocytes/100 WBC (Bld) 11.4 % Normal [facility] Neutrophils/100 WBC (Bld) 62.9 % Normal [facility] Platelet mean volume (Bld) [Entitic vol] 12.8 fL Normal 9.3-13.0 [facility] Comment on above: Result Comment: [facility] [address] [place] [address] CLIA No. [id number] CAP Accreditation No. [id number] Lens Matcher: Shaunna Dee M.D. Platelets (Bld) [#/Vol] 128 10*3/uL Low 130-400 [facility] RBC (Bld) [#/Vol] 5.56 10*6/uL Normal 4.50-6.10 [facility] WBC (Bld) [#/Vol] 6.7 10*3/uL Normal 3.5-11.0 [facility] COMPREHENSIVE METABOLIC PANE L WITH GFRon 02-22-2024 Albumin [Mass/Vol] 4.8 g/dL Normal 3.5-5.2 [facility] ALK PHOS 82 U/L Normal 40-125 [facility] ALT [Catalytic activity/Vol] 26 U/L Normal 5-50 [facility] Anion gap [Moles/Vol] 10.0 mmol/L Normal 7.0-16.0 [facility] AST-SGOT 28 U/L Normal 9-50 [facility] Bilirubin.direct [Mass/Vol] 0.6 mg/dL Normal <=1.2 [facility] Calcium [Mass/Vol] 9.5 mg/dL Normal 8.5-10.5 [facility] Chloride [Moles/Vol] 104 mmol/L Normal 95-107 [facility] CO2 [Moles/Vol] 23 mmol/L Normal 19-31 [facility] Creatinine [Mass/Vol] 0.89 mg/dL Normal 0.80-1.40 [facility] GFR/1.73 sq M.predicted among non-blacks MDRD (S/P/Bld) [Vol rate/Area] 91 mL/min/{1.73_m2} Normal >60 [facility] Glucose [Mass/Vol] 138 mg/dL High 70-99 [facility] Potassium [Moles/Vol] 4.5 mmol/L Normal 3.5-5.4 [facility] Protein [Mass/Vol] 7.6 g/dL Normal 6.1-8.3 [facility] Sodium [Moles/Vol] 137 mmol/L Normal 133-146 [facility] Urea nitrogen [Mass/Vol] 18 mg/dL Normal 8-23 [facility] Ambulatory Visit Summaryon 0 01-03-2024 Ambulatory Visit Summary Ambulatory Visit Summary JUAN MIGUEL JENNINGS :1950 Visit Date:01/03/2024 Ambulatory Visit Instructions Your Diagnosis Hypogonadism Your Care Team Attending Physician - KERI NOLASCO, Hudson Ordoñez Primary Care Physician - DAKOTA NOLASCO, JORDAN Brown This Is Your Medications List [facility] Prescription (METOPROLOL TARTRATE 100 MG TAB) aspirin (aspirin 81 mg oral tablet) brimonidine-brinzola mide ophthalmic (Simbrinza) cyclobenzaprine (cyclobenzaprine 10 mg Tab) diclofenac (diclofenac sodium 75 mg Oral EC Tab) empagliflozin (Jardiance 25 mg oral tablet) glipiZIDE latanoprost ophthalmic (latanoprost Opth 0.005% Richelle) losartan (losartan 100 mg Tab) oxybutynin (oxybutynin 5 mg ER Tab) pioglitazone (pioglitazone 45 mg Tab) sucralfate (sucralfate 1 g Tab) tamsulosin (tamsulosin 0.4 mg Cap) testosterone (testosterone cypionate 200 mg/mL IM Richelle) Procedures Performed Circumcision (09/30/2022), foot surgery (05/23/2019), BACK SURGERY, RECTAL CANCER SURGERY, RIGHT VEIN REMOVED FROM LEG, Stent placement. What to do next Scheduled Follow-Up Appointments Tuesday 9:30 AM EDT Where: [facility] [address] [place] [address]- Medications What How Much When Instructions Unchanged aspirin (aspirin 81 mg oral tablet) By Mouth Every day Unchanged brimonidine-brinzola mide ophthalmic (Simbrinza) Both eyes 2 times a day Unchanged cyclobenzaprine (cyclobenzaprine 10 mg Tab) 1 Tablets By Mouth 3 times a day as needed for for spasm Unchanged diclofenac (diclofenac sodium 75 mg Oral EC Tab) Unchanged empagliflozin (Jardiance 25 mg oral tablet) By Mouth Once a day (in the morning) Unchanged glipiZIDE 10 Milligram By Mouth Every day Unchanged latanoprost ophthalmic (latanoprost Opth 0.005% Richelle) Unchanged losartan (losartan 100 mg Tab) Unchanged Misc Prescription (METOPROLOL TARTRATE 100 MG TAB) 0 Unchanged oxybutynin (oxybutynin 5 mg ER Tab) 1 Tablets By Mouth Every day Unchanged pioglitazone (pioglitazone 45 mg Tab) Unchanged sucralfate (sucralfate 1 g Tab) Unchanged tamsulosin (tamsulosin 0.4 mg Cap) 1 Capsules By Mouth Every day Unchanged testosterone (testosterone cypionate 200 mg/ mL IM Richelle) 450 Milligram Intramuscular Every 4 weeks Medications and Immunizations Administered Given Depo-Testosterone 200 mg/mL intramuscular solution, 400 mg, IntraMuscular. For: Hypogonadism Allergies No Known Allergies Problems Ongoing - Any problem that you are currently receiving treatment for. 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 Hx of hepatitis Patient Survey You may receive a survey via text or e-mail asking about your office visit. Please share your experience with us by completing your survey. We appreciate your feedback and thank you for choosing us for your care. Normal [facility] Urology Office/Clinic Noteon 12-05-2023 Urology Office/Clinic Note Urology Office/Clinic Note Chief Complaint hypogonadism and elevated PSA HPI Staff 6 month f/u with PSA and testosterone level. Dx: hypogonadism, elevated PSA, BPH with urinary obstruction, phimosis and urinary urgency PSA 06/21/23 - 0.08 Testosterone level 11/21/23 - 412 Dysuria: no Incomplete bladder emptying: feels he may not be emptying Hematuria: no Frequency: every 2 hours drinks a lot of water Urgency: no Nocturia: 1x Stream: good steady no straining Leaking: no Post void dripping: no Wearing pads/ Depends: no Urge incontinence: no Stress incontinence: no Incontinence without Sensory Awareness: no Abdominal pain: no Flank pain: no Sexual complaints: no History of Present Illness Tests reviewed: reviewed UA, T level, PSA, Hgb I have reviewed the previous health record [...] See HPI. Physical Exam Vitals & Measurements T: 37 ?C(Temporal Artery) HR: 69(Peripheral) RR: 16 BP: 136/86 HT: 78 in HT: 198 cm WT: 150.3 kg WT: 330.66 lb BMI: 38.34 General Appearance: alert, no distress, well nourished, well developed male. Assessment/Plan 1. Hypogonadism (E23.7: Disorder of pituitary gland, unspecified) Testosterone Levels: 01/11/22 - 144 05/05/22 - 323 10/20/22 - 321 10/28/22 - HGB 17.7. HCT 50.2. 05/23/23 - 278 (ref range 250 - 827) 11/21/23 - 412 (ref range 264 - 916) Hgb 10/25/23 - 17.5. Advised pt level is high. States he had blood work done more recently and believes level is lower. Recommended pt to check this level regularly as TRT contributes to elevated level. Increased Testosterone from 400mg to 450mg IM inj q4wks at prior OV. Last injection given 11/07/23 at 450mg. T level has increased from prior and is higher than necessary. Discussed decreasing Testosterone dosage to stabilize T levels. Pt to get Testosterone 400mg inj today. -Decrease Testosterone from 450mg to 400mg IM inj q4wks. -T level in 6 mos -Repeat Hgb in 2 mos 2. Elevated PSA (R97.20: Elevated prostate specific antigen [PSA]) PSA: 01/11/22 - 0.22 05/05/22 - 0.11 10/20/22 - 0.44 06/20/23 - 0.08 SHEREEN 06/20/23: 30gms, benign Hx of rectal cancer, tx'd w/ chemo and radiation in 2006. PSA has decreased from prior. Advised pt level is extremely, likely secondary to radiation. No indication for further intervention. Will continue to monitor. 3. BPH with urinary obstruction (N40.1: Benign prostatic hyperplasia with lower urinary tract symptoms) UA today negative for blood and infection. Taking Tamsulosin 0.4mg qd. Getting up q3-4hrs during the night, wears c-pap. Attributes sx to recovering from recent head cold. Does not always feel he empties. Discussed increasing dosage of Tamsulosin to bid. Possible SEs discussed. Pt wishes to proceed. -Increase Tamsulosin 0.4mg qd to bid. New rx sent. 4. Urinary urgency (R39.15: Urgency of urination) Taking Oxybutynin 5mg qd. Works well. No accidents. Cont wo changes. 5. 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 Follow-up With When Contact Information KERI NOLASCO, Hudson Ordoñez, URL [facility] [address] [place] [address] [phone] Additional Instructions: 6 mos w/ T level and Hgb Patient Education Hypogonadism, Male I, Erica Marin, personally scribed for Dr. Stevenson on 12/05/2023 11:40:12. . Documentation recorded by the scribeErica, accurately reflects the services(s) I performed and decisions made by me. Authenticated by Dr. Stevenson on 12/05/2023 11:41:54. Problem List/Past Medical History Ongoing BPH with urinary obstruction Coronary artery disease Diabetes Elevated PSA History of colon cancer Hx of residential use of blood thinners Hyperlipidemia Hypertension Hypogonadism [...] Tab, 10 mg= 1 tab(s), Oral, TID, (more content not included)... Normal [facility] Comment on above: Result Comment: Elec tronically Signed By: KERI NOLASCO, Hudson Ordoñez\.br\Date and Time Signed: 12/05/23 11:42 EDT\.br\Electronically Co-Signed By: Erica Marin\.br\Date and Time Co-Signed: 12/05/23 11:40 EDT [facility] 11-22-2023 [facility] [id number] #1.00TIFF Normal [facility] 11-09-2023 [facility] [id number] #1.00TIFF Normal [facility] CBC W/AUTO DIFFon 10-25-2023 ABS IMMATURE GRAN [...] on above: Result Comment: [facility] [address] [place] [address] CLIA No. [id number] CAP Accreditation No. [id number] Lens Matcher: Shaunna Dee M.D. Platelets (Bld) [#/Vol] 141 [...] Visit Summaryon 0 10-07-2023 Ambulatory Visit Summary MILAGROSSAURABHJUAN MIGUEL MARTINEZ :1950 Visit Date:10/07/2023 Ambulatory Visit Instructions Your Diagnosis Hypogonadism male Your Care Team Attending Physician - KERI [...] 9:00 AM EDT Where: [facility] Ambulatory Visit Summaryon 0 09-09-2023 Ambulatory Visit [...] 8:30 AM EDT Where: [facility] 07-15-2023 [facility] [id number] [facility]2023 [facility] [id number] #1.00TIFF [facility] Ambulatory Visit Summaryon 0 06-20-2023 Ambulatory Visit Summary JUAN MIGUEL JENNINGS :1950 Visit Date:06/20/2023 Ambulatory Visit Instructions Your Diagnosis Hypogonadism male Elevated PSA BPH with urinary obstruction Phimosis Urinary urgency Tests Performed Urnls Dip Stick Auto w/o Microscopy POC [id number] Your Care Team Attending Physician - KERI [...] 9:30 AM EST Where: [facility] Patient Educationon 06-20-19 24 Patient Education [...] Follow these instructions at home: ? Take [id number] and prescription medicines only as told by [...] 01/22/2021 Document (more content not included)... Normal [facility] Urology Office/Clinic Noteon 06-20-2023 Urology Office/Clinic [...] Denies SEs. Follow-up With When Contact Information KERI NOLASCO, Hudson Ordoñez, URL [facility] [address] [place] [address]- [phone] Additional Instructions: 6 mos w/ PSA and [...] PSA History of colon cancer Hx of residential use of blood thinners Hyperlipidemia Hypertension Hypogonadism [...] 1 tab(s (more content not included)... Normal [facility] Comment on above: Result Comment: Elec tronically Signed By: Hudson STEVENSON MD\.br\Date and Time Signed: 06/20/23 11:28 EST\.br\Electronically Co-Signed By: Erica Marin\.br\Date and Time Co-Signed: 06/20/23 11:26 EST Lab Reportson 05-31-2023 Lab Reports [id number] #1.00TIFF Normal [facility] CBC W/AUTO DIFFon 04-26-2023 ABS NEUTROPHILS [...] on above: Result Comment: [facility] [address] [place] [address] CLIA No. [id number] CAP Accreditation No. [id number] Lens Matcher: Shaunna Dee M.D. Platelets (Bld) [#/Vol] 125 [...] [facility] Office Visiton 04-08-2023 Follow-up visit [id number] Juan Miguel Jennings 1950 M Date Provider Department Center 04/08/2023 AbhayANUJA DENTON [facility] Family History Problem Relation Age of Onset Heart disease Mother Heart disease Father Family Status - Relation Status Age at Mother Father Level of Service:35249 [place] OFFICE/OUTPATIENT ESTABLISHED MOD MDM 30-39 MIN Normal [facility] Medication Consenton 023 Medication Consent [id number] #1.00TIFF Normal [facility] Ambulatory Visit Summaryon 1 Ambulatory Visit [...] AM EST With: Where: [facility] [place] Normal [address] [place] [address] [place] [address]- \.br\ Medications\.br\ What How Much When Instructions\.br [...] PSA\.br\ History of colon cancer\.br\ Hx of intermediate designer use of blood thinners\.br\ Hyperlipidemia\. br\ Hypertension\.br [...] for choosing us for your care.\.br\ \.br\ [facility] Ambulatory Visit Summaryon 1 Ambulatory Visit [...] AM EDT With: Where: [facility] Invalid Interpretation Code [address] [place] [address] [place] [address]- \.br\ Tuesday 9:45 AM EST \.br\ With: KERI NOLASCO, Hudson Ordoñez\.br\ Where: [facility] POINT OF CARE GLUCOSEon 04-2 Glucose [Mass/Vol] 112 mg/dL Critically high 74-106 [facility] Comment on above: Performed By: #### P OCGLUC #### [facility] [address] [place] [address] Dr. Patria Sanders CBC AUTO DIFFon 09-15-2022 BASO # 0.0 103/ul Normal 0.0-0.1 [facility] Comment on above: Performed By: #### C BC #### [facility] [address] [place] [address] Dr. Patria Sanders Basophils/100 WBC (Bld) 0.5 % Normal 0.2-2.0 [facility] Comment on above: Performed By: #### C BC #### [facility] [address] [place] [address] Dr. Patria Sanders EO # 0.3 103/ul Normal 0.0-0.7 [facility] Comment on above: Performed By: #### C BC #### [facility] [address] [place] [address] Dr. Patria Sanders Eosinophils/100 WBC (Bld) 3.2 % Normal 0.9-7.0 [facility] Comment on above: Performed By: #### C BC #### [facility] [address] [place] [address] Dr. Patria Sanders Erythrocyte distribution width (RBC) [Ratio] 14.5 % Normal 11.0-15.0 [facility] Comment on above: Performed By: #### C BC #### [facility] [address] [place] [address] Dr. Patria Sanders Hematocrit (Bld) [Volume fraction] 49.0 % Normal 42.0-54.0 [facility] Comment on above: Performed By: #### C BC #### [facility] [address] [place] [address] Dr. Patria Sanders Hemoglobin (Bld) [Mass/Vol] 16.7 g/dL Normal 14.0-18.0 [facility] Comment on above: Performed By: #### C BC #### [facility] [address] [place] [address] Dr. Patria Sanders IG # 0.03 10e3/ul Normal 0.00-0.03 [facility] Comment on above: Performed By: #### C BC #### [facility] [address] [place] [address] Dr. Patria Sanders IG % 0.4 % Normal 0.0-0.5 [facility] Comment on above: Performed By: #### C BC #### [facility] [address] [place] [address] Dr. Patria Sanders LYMPH # 1.1 103/ul Critically low 1.2-3.8 [facility] Comment on above: Performed By: #### C BC #### [facility] [address] [place] [address] Dr. Patria Sanders Lymphocytes/100 WBC (Bld) 14.5 % Critically low 20.5-60.0 [facility] Comment on above: Performed By: #### C BC #### [facility] [address] [place] [address] Dr. Patria Sanders MANUAL DIFF REQ NO Normal [facility] Comment on above: Performed By: #### C BC #### [facility] [address] [place] [address] Dr. Patria Sanders MCH (RBC) [Entitic mass] 32.6 pg Normal 25.9-34.0 [facility] Comment on above: Performed By: #### C BC #### [facility] [address] [place] [address] Dr. Patria Sanders MCHC (RBC) [Mass/Vol] 34.1 g/dL Normal 29.9-35.2 [facility] Comment on above: Performed By: #### C BC #### [facility] [address] [place] [address] Dr. Patria Sanders MCV (RBC) [Entitic vol] 95.5 fL Critically high 80.0-94.0 [facility] Comment on above: Performed By: #### C BC #### [facility] [address] [place] [address] Dr. Patria Sanders MONO # 0.8 103/ul Normal 0.3-0.8 [facility] Comment on above: Performed By: #### C BC #### [facility] [address] [place] [address] Dr. Patria Sanders Monocytes/100 WBC (Bld) 9.6 % Normal 1.7-12.0 [facility] Comment on above: Performed By: #### C BC #### [facility] [address] [place] [address] Dr. Patria Sanders NEUT # 5.6 103/ul Normal 1.4-6.5 [facility] Comment on above: Performed By: #### C BC #### [facility] [address] [place] [address] Dr. Patria Sanders Neutrophils/100 WBC (Bld) 71.8 % Normal 43.0-75.0 [facility] Comment on above: Performed By: #### C BC #### [facility] [address] [place] [address] Dr. Patria Sanders Platelet mean volume (Bld) [Entitic vol] 11.6 fL Normal 9.5-13.5 [facility] Comment on above: Performed By: #### C BC #### [facility] [address] [place] [address] Dr. Patria Sanders PLT 154 103/ul Normal 150-450 [facility] Comment on above: Performed By: #### C BC #### [facility] [address] [place] [address] Dr. Patria Sanders RBC 5.13 106/ul Normal 4.70-6.10 [facility] Comment on above: Performed By: #### C BC #### [facility] [address] [place] [address] Dr. Patria Sanders WBC 7.8 103/ul Normal 4.0-11.0 [facility] Comment on above: Performed By: #### C BC #### [facility] [address] [place] [address] Dr. Patria Sanders PROF CHEM 8 (BAS METB)on Anion gap [Moles/Vol] 11.4 mmol/L Normal [facility] Comment on above: Performed By: #### B MP #### [facility] [address] [place] [address] Dr. Patria Sanders Calcium [Mass/Vol] 9.1 mg/dL Normal 8.5-10.1 [facility] Comment on above: Performed By: #### B MP #### [facility] [address] [place] [address] Dr. Patria Sanders Chloride [Moles/Vol] 104 mmol/L Normal 98-107 [facility] Comment on above: Performed By: #### B MP #### [facility] [address] [place] [address] Dr. Patria Sanders CO2 [Moles/Vol] 28.7 mmol/L Normal 21.0-32.0 [facility] Comment on above: Performed By: #### B MP #### [facility] [address] [place] [address] Dr. Patria Sanders Creatinine [Mass/Vol] 0.80 mg/dL Normal 0.70-1.30 [facility] Comment on above: Performed By: #### B MP #### [facility] [address] [place] [address] Dr. Patria Sanders EGFR-AF BAHAMIAN >60 Normal >=60 [facility] Comment on above: Performed By: #### B MP #### [facility] [address] [place] [address] Dr. Patria Sanders EGFR-NON AF BAHAMIAN >60 Normal >=60 [facility] Comment on above: Performed By: #### B MP #### [facility] [address] [place] [address] Dr. Patria Sanders Glucose [Mass/Vol] 101 mg/dL Normal 74-106 [facility] Comment on above: Performed By: #### B MP #### [facility] [address] [place] [address] Dr. Patria Sanders Potassium [Moles/Vol] 4.1 mmol/L Normal 3.5-5.1 [facility] Comment on above: Performed By: #### B MP #### [facility] [address] [place] [address] Dr. Patria Sanders Sodium [Moles/Vol] 140 mmol/L Normal 136-145 [facility] Comment on above: Performed By: #### B MP #### [facility] [address] [place] [address] Dr. Patria Sanders Urea nitrogen [Mass/Vol] 11.0 mg/dL Normal 7.0-18.0 [facility] Comment on above: Performed By: #### B MP #### [facility] [address] [place] [address] Dr. Patria Sanders Urea nitrogen/Creatini ne [Mass ratio] 13.8 mg/mg Normal [facility] Comment on above: Performed By: #### B MP #### [facility] [address] [place] [address] Dr. Patria Sanders PROTIMEon 09-15-2022 INR Coag (PPP) [Relative time] 1.02 {INR} Normal [facility] Comment on above: Performed By: #### P TT, PT #### [facility] [address] [place] [address] Dr. Patria Sanders INR GUIDELINES SEE BELOW Normal [facility] Comment on above: Result Comment: SANTO RED INR: 2.0 - 3.0 CONDITIONS NOT LISTED BELOW 2.5 - 3.5 FOR PROSTHETIC HEART VALVE REPLACEMENT 2.5 - 3.5 RECURRENT THROMBOSIS Performed By: #### P TT, PT #### [facility] [address] [place] [address] Dr. Patria Sanders PT Coag (PPP) [Time] 10.8 s Normal 9.0-11.6 [facility] Comment on above: Performed By: #### P TT, PT #### [facility] [address] [place] [address] Dr. Patria Sanders PTTon 09-15-2022 aPTT Coag (Bld) [Time] 32.0 s Normal 22.3-36.2 [facility] Comment on above: Performed By: #### P TT, PT #### [facility] [address] [place] [address] Dr. Patria Sanders [facility] 01-04 SARS-CoV-2 (COVID-19) RNA NANCY+probe Ql (Unsp spec) Not detected Normal NOT DETECTED [facility] Comment on above: Result Comment: This test is not yet approved or cleared by the [place] FDA. When there are no FDA-approved or cleared tests available, and other criteria are met, FDA can make tests available under an emergency access mechanism called an Emergency Use Authorization (EUA). The EUA for this test is supported by the [place] of Health and Human Service's (HHS's) declaration [...] consistent with SARS-CoV-2. Performed By: #### [facility] #### [facility] [address] [address] [address] Patria Sanders Hemoglobin A1Con 09-24-2021 EAG 128.37 Normal [facility] Comment on above: Performed By: #### A 1C #### [facility] [address] [place], [place] [id number] HbA1c (Bld) [Mass fraction] 6.1 % High 4.0-6.0 [facility] Comment on above: Performed By: #### A 1C #### [facility] [address] [place], [place] [id number] Testosteroneon 05-11-2021 TESTOS 314.70 ng/dL Normal 193.00-740.00 [facility] Comment on above: Performed By: #### T EST #### [facility] [address] [place], [place] [id number] XR femur BIon 05-06-2021 XR femur BI [facility] [place] [address] [place] [id number] XRay Report Signed Patient: Juan Miguel Jennings MR#: [id number] 25 : 1950 Acct:[id number] Age/Sex: 71 / M ADM Date: 05/06/21 Loc: ICXD Room: Type: [facility] Attending Dr: Maxwell Staley PA-C Ordering Provider: Maxwell Staley PA-C Date of Service: 05/06/21 XR/XR chest 2V*: Z01.818 ([id number]) XR/XR femur BI: Z01.818 ([id number]) XR/XR tibia/fibula BI: . 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 12-05-2023 10:38-0400 Body temperature 98.6 [degF] Hudsno STEVENSON [facility] 12-05-2023 10:38-0400 Diastolic blood pressure 86 mm[Hg] Hudosn STEVENSON [facility] 12-05-2023 10:38-0400 Heart rate 69 /min Hudson STEVENSON [facility] 12-05-2023 10:38-0400 Respiratory rate 16 /min Hudson STEVENSON [facility] 12-05-2023 10:38-0400 Systolic blood pressure 136 mm[Hg] Hudson STEVENSON [facility] 07-19-2023 10:37-0500 Body height 198.1 cm Alberto Ibrahim DPM Work Phone: [facility] 07-19-2023 10:37-0500 Body mass index (BMI) [Ratio] 39.87 kg/m2 Alberto Ibrahim DPM Work Phone: [facility] 07-19-2023 10:37-0500 Body weight 156.49 kg Alberto Ibrahim DPM Work Phone: [facility] 06-20-2023 10:33-0500 Blood Pressure Location Hudson STEVENSON [facility] 06-20-2023 10:33-0500 Diastolic blood pressure 86 mm[Hg] Hudson STEVENSON [facility] 06-20-2023 10:33-0500 Heart rate 70 /min Hudson STEVENSON [facility] 06-20-2023 10:33-0500 Respiratory rate 16 /min Hudson STEVENSON [facility] 06-20-2023 10:33-0500 Systolic blood pressure 139 mm[Hg] Hudson STEVENSON [facility] 11-05-2022 10:12-0400 Blood Pressure Location Hudsonpeter STEVENSON [facility] 11-05-2022 10:12-0400 Diastolic blood pressure 78 mm[Hg] Hudson STEVENSON [facility] 11-05-2022 10:12-0400 Heart rate 68 /min Hudosnpeter STEVENSON [facility] 11-05-2022 10:12-0400 Respiratory rate 16 /min Hudsonpeter STEVENSON [facility] 11-05-2022 10:12-0400 Systolic blood pressure 130 mm[Hg] Hudson STEVENSON [facility] 11-03-2022 14:34-0400 Body temperature 97.5 [degF] Mth[facility] Schedule [facility] 11-03-2022 14:34-0400 Diastolic blood pressure 77 mm[Hg] [facility] Schedule [facility] 11-03-2022 14:34-0400 Heart rate 72 /min [facility] 11-03-2022 14:34-0400 Respiratory rate 18 /min [facility] Schedule [facility] 11-03-2022 14:34-0400 Systolic blood pressure 140 mm[Hg] [facility] Schedule [facility] 06-18-2022 08:55-0500 Blood Pressure Location Hudson STEVENSON [facility] 06-18-2022 08:55-0500 Diastolic blood pressure 82 mm[Hg] Hudson STEVENSON [facility] 06-18-2022 08:55-0500 Heart rate 80 /min Hudson STEVENSON [facility] 06-18-2022 08:55-0500 Respiratory rate 16 /min Hudson STEVENSON [facility] 06-18-2022 08:55-0500 Systolic blood pressure 132 mm[Hg] Hudson STEVENSON [facility] 05-17-2022 09:43-0500 Blood Pressure Location Hudson STEVENSON [facility] 05-17-2022 09:43-0500 Diastolic blood pressure 92 mm[Hg] Hudson STEVENSON [facility] 05-17-2022 09:43-0500 Heart rate 63 /min Hudson STEVENSON [facility] 05-17-2022 09:43-0500 Systolic blood pressure 143 mm[Hg] Hudson STEVENSON [facility] 02-01-2022 09:48-0400 Blood Pressure Location Hudson STEVENSON [facility] 02-01-2022 09:48-0400 Diastolic blood pressure 66 mm[Hg] Hudson STEVENSON [facility] 02-01-2022 09:48-0400 Heart rate 84 /min Hudson STEVENSON [facility] 02-01-2022 09:48-0400 Respiratory rate 16 /min Hudson STEVENSON [facility] 02-01-2022 09:48-0400 Systolic blood pressure 98 mm[Hg] Hudson STEVENSON [facility] 01-28-2022 13:48-0400 Diastolic blood pressure 76 mm[Hg] [facility] 01-28-2022 13:48-0400 Heart rate 56 /min [facility] 01-28-2022 13:48-0400 Respiratory rate 18 /min [facility] 01-28-2022 13:48-0400 Systolic blood pressure 135 mm[Hg] [facility] [employer] 01-28-2022 13:25-0400 Body temperature 97.39 [degF] [facility] [employer] 10-22-2020 12:25-0400 Body temperature 97.81 [degF] [facility] Schedule [facility] Work Phone: 10-22-2020 12:25-0400 Heart rate 67 /min [facility] Schedule [facility] Work Phone: 07-27-2019 08:03-0500 Body Temperature 96.3 [degF] [facility] Schedule [facility] [place] 07-27-2019 08:03-0500 BP Diastolic 80 mm[Hg] [facility] Schedule [employer] [place] , [place] 07-27-2019 08:03-0500 BP Systolic 129 mm[Hg] [facility] [employer] [facility] [place] , [place] 07-27-2019 08:03-0500 Pulse (Heart Rate) 63 /min [facility] Schedule [employer] [place], [place] 07-27-2019 08:03-0500 Respiratory Rate 20 /min [facility] [place] 03-13-2019 08:02-0400 Body Temperature 96.69 [degF] [facility] Schedule [facility] [place], [place] 03-13-2019 08:02-0400 BP Diastolic 83 mm[Hg] [facility] Schedule [facility] [place] , [place] 03-13-2019 08:02-0400 BP Systolic 162 mm[Hg] [facility] [place] 03-13-2019 08:02-0400 Pulse (Heart Rate) 74 /min [facility], [place] 03-13-2019 08:02-0400 Respiratory Rate 20 /min [facility] [place], [place] 01-12-2019 08:03-0400 Body Temperature 96.91 [degF] [facility] [place] 01-12-2019 08:03-0400 BP Diastolic 87 mm[Hg] [facility] , [place] 01-12-2019 08:03-0400 BP Systolic 152 mm[Hg] [facility] Schedule [facility] [place] , [place] 01-12-2019 08:03-0400 Pulse (Heart Rate) 63 /min [facility] [place] 01-12-2019 08:03-0400 Respiratory Rate 20 /min [facility] Schedule [facility]- [place] , [place] Encounters Encounter Date Encounter Type Care Provider Facility Start: 05-21-2024 ambulatory Hudson Nicki ty:[facility] [place] Start: 04-23-2024 ambulatory Hudson STEVENSON Facili ty:[facility] Start: 03-27-2024 ambulatory Hudson STEVENSON Facili ty:[facility] Start: 02-27-2024 End: 02-27-2024 ambulatory Hudson STEVENSON Facility:[facility] [place] Start: 02-27-2024 End: 02-27-2024 Patient encounter procedure Hudson STEVENSON [facility] [place] Start: 01-31-2024 End: 01-31-2024 ambulatory Fernanda Solomon Facility:[facility] [place] Start: 01-31-2024 End: 01-31-2024 Patient encounter procedure [facility]anda [facility] Start: 01-10-2024 End: 01-10-2024 ambulatory ALBERTO IBRAHIM Not Available Start: 01-03-2024 End: 01-03-2024 ambulatory Hudson STEVENSON Facility:[facility] [place] Start: 12-06-2023 End: 12-06-2023 ambulatory ALBERTO IBRAHIM Not Available Start: 12-05-2023 End: 12-05-2023 ambulatory Hudson STEVENSON Facility:[facility] [place] Start: 12-05-2023 End: 12-05-2023 Patient encounter procedure Hudson STEVENSON [facility] Start: 11-09-2023 End: 11-09-2023 ambulatory [facility] Start: 11-07-2023 End: 11-07-2023 ambulatory Hudson STEVENSON Facility:[facility] [place] Start: 11-07-2023 End: 11-07-2023 Patient encounter procedure Hudson STEVENSON [facility] Start: 10-27-2023 End: 10-27-2023 ambulatory JORDAN DUNCAN Not Available Start: 10-12-2023 End: 10-12-2023 ambulatory JORDAN DUNCAN Not Available Start: 10-07-2023 End: 10-07-2023 ambulatory Hudson STEVENSON Facility:[facility] [place] Start: 10-07-2023 End: 10-07-2023 Patient encounter procedure Hudson STEVENSON [facility] Start: 09-27-2023 End: 09-27-2023 ambulatory ALBERTO IBRAHIM Not Available Start: 09-09-2023 End: 09-09-2023 ambulatory Hudson STEVENSON Facility:[facility] [place] Start: 09-09-2023 End: 09-09-2023 Patient encounter procedure Hudson STEVENSON [facility] Start: 08-15-2023 End: 08-15-2023 ambulatory Hudson STEVENSON Facility:[facility] [place] Start: 08-15-2023 End: 08-15-2023 Patient encounter procedure Hudson STEVENSON [facility] [place] Start: 07-19-2023 [employer] Alberto Tyler er DPM Work Phone: [facility] Start: 07-19-2023 [employer]amboo flowsheet Alberto Tyler er DPM Work Phone: [facility] Start: 07-19-2023 End: 07-19-2023 ambulatory ALBERTO IBRAHIM Not Available Start: 07-19-2023 End: 07-19-2023 Patient encounter procedure Alberto Ibrahim DPM Work Phone: [facility] Comment on above: Dermatophytosis of n ail (Primary Dx); Dystrophic nail; Diabetic polyneuropathy associated with type 2 diabetes mellitus (CMS/HCC); Nontraumatic amputation of foot, 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); Nontraumatic amputation of foot, left ([facility]/HCC); Acquired keratoderma Start: 07-18-2023 End: 07-18-2023 ambulatory Hudson STEVENSON Facility:[facility] [place] Start: 07-18-2023 End: 07-18-2023 Patient encounter procedure Hudson STEVENSON [facility] Start: 06-20-2023 End: 06-20-2023 ambulatory Hudson STEVENSON Facility:[facility] [place] Start: 06-20-2023 End: 06-20-2023 Patient encounter procedure Hudson STEVENSON [facility] [place] Start: 05-17-2023 End: 05-17-2023 ambulatory JORDAN DUNCAN Not Available Start: 05-12-2023 End: 05-12-2023 ambulatory WILLI Smita [facility] Start: 05-09-2023 End: 05-09-2023 ambulatory Hudson STEVENSON Facility:[facility] [place] Start: 05-09-2023 End: 05-09-2023 Patient encounter procedure Hudson STEVENSON [facility] Start: 04-19-2023 End: 04-19-2023 ambulatory JORDAN DUNCAN Not Available Start: 04-08-2023 End: 04-08-2023 ambulatory [place] [facility] Start: 04-04-2023 End: 04-04-2023 ambulatory Hudson STEVENSON Facility:[facility] [place] Start: 04-04-2023 End: 04-04-2023 Patient encounter procedure Hudson STEVENSON [facility] Start: 03-07-2023 End: 03-07-2023 ambulatory Hudson STEVENSON Facility:[facility] [place] Start: 02-08-2023 End: 02-08-2023 Patient encounter procedure JORDAN DUNCAN [facility] Start: 01-03-2023 End: 01-03-2023 Patient encounter procedure Hudson STEVENSON [facility] Start: 12-03-2022 End: 12-03-2022 Patient encounter procedure Hudson STEVENSON [facility] Start: 11-05-2022 End: 11-05-2022 Patient encounter procedure Hudson STEVENSON [facility] Start: 11-03-2022 End: 11-03-2022 Subsequent [facility] [address] [facility] Comment on above: Polycythemia (Primar y Dx) Start: 10-25-2022 End: 10-26-2022 ambulatory ARNOLD PEOPLES Facility:[facility] Start: 10-05-2022 End: 10-06-[address] JORDAN DUNCAN . Facility:[facility] Start: 10-05-2022 End: 10-05-2022 Patient encounter procedure Hudson STEVENSON [facility] Start: 09-30-2022 End: 09-30-[address] HUDSON STEVENSON . Facility:[facility] Start: 09-27-2022 End: 09-28-2022 ambulatory ARNOLD PEOPLES Facility:[facility] Start: 09-20-2022 End: 09-21-2022 ambulatory ENEDINA BOSS Facility:[facility] Start: 09-20-2022 Encounter for preprocedural cardiovascular examination DR HUDSON STEVENSON . [facility] Start: 09-20-2022 Encounter for preprocedural laboratory examination DR HUDSON STEVENSON . [facility] Start: 09-20-2022 Encounter for preprocedural respiratory examination DR HUDSON STEVENSON . [facility] Start: 09-15-2022 End: 09-16-[address] HUDSON STEVENSON . Facility:[facility] Start: 09-15-2022 End: 09-16-2022 Encounter for preprocedural laboratory examination DR HUDSON STEVENSON . Facility:[facility] Start: 09-06-2022 End: 09-06-2022 Patient encounter procedure Hudson STEVENSON [facility] Start: 06-18-2022 End: 06-18-2022 Patient encounter procedure Hudson STEVENSON [facility] [employer] Start: 05-20-2022 End: 05-21-2022 ambulatory [facility] Facility:[facility] Start: 05-17-2022 End: 05-17-2022 Patient encounter procedure Hudson STEVENSON [facility] Start: 04-21-2022 End: 04-22-2022 ambulatory [facility] Facility:[facility] Start: 04-21-2022 End: 04-21-2022 Patient encounter procedure Mandy Schaefer [facility] [employer] Start: 04-09-2022 End: 04-10-2022 ambulatory [facility] Facility:[facility] Start: 03-31-2022 End: 03-31-2022 Patient encounter procedure Mandy Schaefer [facility] [employer] Start: 03-22-2022 End: 03-23-2022 ambulatory [facility] Facility:[facility] Start: 03-03-2022 End: 03-03-2022 Patient encounter procedure Mandy Schaefer [facility] Start: 02-01-2022 End: 02-01-2022 Patient encounter procedure Hudson STEVENSON [facility] Start: 01-28-2022 End: 01-28-2022 Subsequent [facility] Comment on above: Polycythemia (Primar y Dx) Start: 01-18-2022 End: 01-18-[address] JORDAN DUNCAN . Facility:[facility] Start: 01-06-2022 End: 01-07-2022 ambulatory ENEDINA BOSS Facility:[facility] Start: 12-21-2021 End: 12-21-2021 Patient encounter procedure Hudson STEVENSON [facility] Start: 11-23-2021 End: 11-23-2021 Patient encounter procedure Hudson STEVENSON [facility] Start: 10-26-2021 End: 10-26-2021 Patient encounter procedure Hudson STEVENSON [facility] Start: 09-28-2021 End: 09-28-2021 Patient encounter procedure Hudson STEVENSON [facility] Start: 08-31-2021 End: 08-31-2021 Patient encounter procedure Hudson STEVENSON [facility] Start: 10-22-2020 End: 10-22-2020 Subsequent hospital visit by physician [facility] Med Onc Room 9 Schedule [facility] Comment on above: Polycythemia (Primar y Dx) Start: 07-27-2019 End: 07-27-2019 Subsequent hospital visit by physician [facility] Room 9 Schedule [facility] Comment on above: Polycythemia (Primar y Dx) Start: 03-13-2019 End: 03-13-2019 Subsequent hospital visit by physician [facility] Room 9 Schedule [facility] Comment on above: Polycythemia (Primar y Dx) Start: 01-12-2019 End: 01-12-2019 Subsequent hospital visit by physician Katiz Med Onc Room 9 Schedule [facility] Start: 02-16-2018 End: 02-17-2018 Patient encounter DEFAULT PHYSICIAN Facility:[facility] Procedures Date Procedure Procedure Detail Performing Clinician Start: 09-30-2022 Circumcision Hudson JENSEN Start: 12-17-2020 Colonoscopy Alberto Hector DPM Work Phone: Start: 05-23-2019 foot surgery Hudson JENSEN Start: 05-13-2014 History of placement of stent for coronary artery disease S/P JORY - LCX & RCA ([id number]. kabour) [facility] Schedule BACK SURGERY Hudson STEVENSON Placement of stent Hudson OSEUGERA RECTAL CANCER SURGERY Agustin STEVENSON RIGHT VEIN REMOVED F ROM LEG Hudson STEVENSON Plan of Treatment Date Care Activity Detail Author Start: 12-17-2030 Screening for malignant neoplasm of colon [facility] Start: 05-17-2024 Medicare Annual Wellness (AWV) Medicare Annual Wellness (AWV) [facility] Start: 11-26-2023 Glaucoma screening Diabetes: Retinopathy Screening [facility] Start: 10-29-2023 GFR test (Diabetes, CKD 3-4, OR last GFR 15-59) GFR test (Diabetes, CKD 3-4, OR last GFR 15-59) [facility] Start: 10-26-2023 End: 10-26-2023 Patient encounter procedure 10/26/2023 Office Visit Oncology Newton Stevenson MD [address] [place] [address] [facility] Start: 10-12-2023 End: 10-12-2023 Patient encounter procedure 10/12/2023 9:30 AM EDT Office Visit [facility] [address] [place] [address] Jordan Duncan MD [address] [place] [address] (Fax) [facility] Start: 09-27-2023 End: 09-27-2023 Patient encounter procedure 09/27/2023 11:00 AM EDT [facility] [address] [place] [id number] Alberto Ibrahim DPM [address] [place] [address] [facility] Start: 07-14-2023 Hemoglobin A1c measurement Diabetes: Hemoglobin A1C [facility] Start: 10-20-2022 End: 10-20-2022 Patient encounter procedure 10/20/2022 Office Visit Oncology Newton Stevenson MD [address] [place], [place] [id number] [facility] Start: 09-24-2022 Hemoglobin A1c measurement A1C test (Diabetic or Prediabetic) [facility] Start: 02-04-2022 Influenza vaccination Flu vaccine (#1) [facility] Start: 11-11-2021 Urine screening for protein Diabetic microalbuminuria test [facility] Start: 10-21-2021 End: 10-21-2021 Patient encounter procedure 10/21/2021 Office Visit Oncology Newton Stevenson MD [address] [place], [place] [id number] [facility] Start: 10-16-2021 COVID-19 Vaccine (4 - Booster for Pfizer series) COVID-19 Vaccine (4 - Booster for Pfizer series) [facility] Start: 10-14-2021 Lipid panel Lipids [facility] Start: 10-24-2019 End: 10-24-2019 Office Visit [place] [facility] Start: 07-31-2019 End: 07-31-2019 Appointment 07/31/2019 Appointment Infusion Therapy [facility] Start: 04-30-2019 End: 04-30-2019 Appointment 04/30/[address] [facility] Start: 02-04-2019 Influenza vaccination Flu vaccine (#1) [facility] [place] Start: 11-26-2018 Annual Wellness Visit (AWV) Annual Wellness Visit (AWV) [facility] Start: 08-17-2017 Creatinine measurement Creatinine monitoring [facility]House Phone: Start: 08-17-2017 Creatinine monitoring Creatinine monitoring [place] Start: 08-17-2017 Potassium monitoring Potassium monitoring [place], [place] Start: 08-04-2017 A1C test (Diabetic or Prediabetic) A1C test (Diabetic or Prediabetic) [place] Start: 08-04-2017 Hemoglobin A1c measurement A1C test (Diabetic or Prediabetic) [facility] Start: 02-10-2017 Abdominal aortic aneurysm screening AAA screen [facility] Start: 02-10-2017 Pneumococcal 65+ years Vaccine (1 of 2 - PCV13) Pneumococcal 65+ years Vaccine (1 of 2 - PCV13) [place] Start: 01-29-2017 Shingles Vaccine (2 of 3) Shingles Vaccine (2 of 3) [facility] Start: 02-10-2015 Annual Wellness Visit (AWV) Annual Wellness Visit (AWV) [place] Start: 02-10-2002 Colon cancer screen colonoscopy Colon cancer screen colonoscopy [place] Start: 02-10-2002 Screening for malignant neoplasm of colon Colon cancer screen colonoscopy [facility] Phone: Start: 02-10-2002 Shingles Vaccine (1 of 2) Shingles Vaccine (1 of 2) [place], [place] Start: 02-10-1997 Screening for malignant neoplasm of colon [facility] Start: 02-10-1971 DTaP/Tdap/Td vaccine (1 - Tdap) DTaP/Tdap/Td vaccine (1 - Tdap) [facility] Start: 02-10-1971 Hepatitis B vaccine (1 of 3 - Risk 3-dose series) Hepatitis B vaccine (1 of 3 - Risk 3-dose series) [place] Start: 02-10-1970 Diabetic microalbuminuria test Diabetic microalbuminuria test [place] Start: 02-10-1970 Diabetic retinal exam Diabetic retinal exam [facility] Start: 02-10-1970 Glaucoma screening Diabetic retinal exam [facility] Start: 02-10-1970 Hepatitis C screening Hepatitis C screen [facility] Start: 02-10-1970 Urine screening for protein Diabetic Alb to Cr ratio (uACR) test [facility] Start: 1964 Depression Screen Depression Screen [facility] Start: 02-10-1963 DTaP/Tdap/Td vaccine (1 - Tdap) DTaP/Tdap/Td vaccine (1 - Tdap) [place] Start: 02-10-1962 [object Object] Diabetic foot exam [place] Start: 02-10-1962 Diabetic foot examination Diabetic foot exam [facility] Start: 02-10-1962 Diabetic retinal exam Diabetic retinal exam [place] Start: 02-10-1962 Lipid panel [facility] Start: 02-10-1962 Lipid screen Lipid screen [place] Start: 1952 Annual Wellness Visit (AWV) Annual Wellness Visit (AWV) [facility] Start: 1950 Hepatitis C screen Hepatitis C screen [place], [place] Start: 1952 Hepatitis C screening Hepatitis C screen [facility] Work Phone: Start: 1950 Screening for malignant neoplasm of colon [facility] Immunizations Immunization Date Immunization Notes Care Provider Shania durham 02-28-2023 influenza virus vacc ine, unspecified formulation Hudson STEVENSON [facility] 02-28-2023 Influenza, Seasonal, Quadrivalent, Adjuvanted Alberto Ibrahim DPM Work Phone: [facility] 04-16-2022 influenza virus vacc ine, unspecified formulation Hudson STEVENSON [facility] 04-16-2022 Influenza, Seasonal, Quadrivalent, Adjuvanted Alberto Ibrahim DPM Work Phone: [facility] 03-23-2022 Moderna Bivalent Simmons ster Vaccination Alberto Ibrahim DPM Work Phone: [facility] 03-23-2022 Moderna SARS-CoV-2 50mcg/0.5mL Booster Alberto Ibrahim DPM Work Phone: [facility] 03-23-[address] 12 Years And Older Alberto Ibrahim DPM Work Phone: [facility] 03-23-2022 SARS-CoV-2 (COVID-19 ) [id number] Hudson STEVENSON [facility] 06-18-2021 SARS-CoV-2 (COVID-19 ) mRNA BNT-162b2 vax Hudson STEVENSON [facility] 05-06-2021 influenza virus vacc ine, unspecified formulation Hudson STEVENSON [facility] 05-06-2021 Influenza, Seasonal, Quadrivalent, Adjuvanted Alberto Ibrahim DPM Work Phone: [facility] 05-06-2021 SARS-CoV-2 (COVID-19 ) Ad26 vaccine, recombinant Hudson STEVENSON [facility] 08-28-2020 SARS-CoV-2 (COVID-19 ) mRNA BNT-162b2 vax Hudson STEVENSON [facility] 08-28-2020 SARS-CoV-2, Unspecified Garry Ibrahim DPM Work Phone: [facility] 08-27-2020 Pfizer Purple Cap SARS-CoV-2 Vaccination Alberto Ibrahim DPM Work Phone: [facility] 08-08-2020 SARS-CoV-2 (COVID-19 ) mRNA BNT-162b2 vax Hudson STEVENSON [facility] Comment on above: Result Comment: 2022: [id number] 08-08-2020 SARS-CoV-2, Unspecified Garry Ibrahim DPM Work Phone: [facility] 08-07-2020 Pfizer Purple Cap SARS-CoV-2 Vaccination Alberto Ibrahim DPM Work Phone: [facility] 08-04-2020 SARS-CoV-2 (COVID-19 ) Ad26 vaccine, recombinant Hudson STEVENSON [facility] 03-22-2020 influenza virus vacc ine, unspecified formulation Hudson STEVENSON [facility] 03-22-2020 Influenza, Seasonal, Quadrivalent, Adjuvanted Alberto Ibrahim DPM Work Phone: [facility] 03-06-2019 pneumococcal conjuga te vaccine, 13 valent Hudson STEVENSON [facility] 03-05-2019 influenza virus vacc ine, unspecified formulation Hudson STEVENSON [facility] 03-05-2019 influenza, high dose seasonal, preservative-free Alberto Ibrahim DPM Work Phone: [facility] 03-05-2019 pneumococcal polysaccharide vaccine, 23 valent Hudson STEVENSON [facility] 03-04-2019 Influenza, High-dose Seasonal, Quadrivalent, Preservative Free Alberto Ibrahim DPM Work Phone: [facility] 03-04-2019 pneumococcal polysaccharide vaccine, 23 valent Alberto Ibrahim DPM Work Phone: [facility] 03-03-2018 influenza virus vacc ine, unspecified formulation Hudson STEVENSON [facility] 03-03-2018 influenza, high dose seasonal, preservative-free Alberto Ibrahim DPM Work Phone: [facility] 03-03-2018 pneumococcal conjuga te vaccine, 13 valent Hudson STEVENSON [facility] 03-03-2018 pneumococcal polysaccharide vaccine, 23 valent Albertogarrick Ibrahim DPM Work Phone: [facility] 03-02-2018 pneumococcal conjuga te vaccine, 13 valent Alberto Rusher DPM Work Phone: [facility] 04-06-2017 influenza virus vacc ine, unspecified formulation Hudson STEVENSON [facility] 04-06-2017 influenza, injectabl e, quadrivalent, preservative free Alberto Alexandria DPM Work Phone: [facility] 12-04-2016 pneumococcal polysaccharide vaccine, 23 valent Hudson STEVENSON [facility] 12-04-2016 zoster vaccine, live Hudson STEVENSON [facility] 03-06-2016 Influenza Vaccine, unspecified formulation [facility] Schedule [facility] 03-06-2016 influenza virus vacc ine, unspecified formulation Alberto Ibrahim DPM Work Phone: [facility] 03-06-2016 Influenza, High-dose Seasonal, Quadrivalent, Preservative Free Alberto Ibrahim DPM Work Phone: [facility] 03-06-2016 influenza, unspecifi ed formulation Hudson STEVENSON [facility] 01-23-2016 influenza virus vacc ine, unspecified formulation Hudson STEVENSON [facility] 01-23-2016 influenza, injectabl e, quadrivalent, preservative free Alberto Rusher DPM Work Phone: [facility] 06-06-2015 pneumococcal polysaccharide vaccine, 23 valent Hudson STEVENSON [facility] 03-23-2014 influenza virus vacc ine, unspecified formulation Hudson STEVENSON [facility] 03-23-2014 influenza, seasonal, injectable Alberto Alexandria DPM Work Phone: [facility] 04-06-2013 influenza virus vacc ine, unspecified formulation Hudson STEVENSON [facility] 04-06-2013 influenza, seasonal, injectable Alberto Rusher DPM Work Phone: [facility] 04-06-2013 zoster vaccine, live Hudson STEVENSON [facility] 04-05-2013 zoster vaccine, live Alberto Rusher DPM Work Phone: [facility] 04-21-2009 novel influenza-H1N1 -09, preservative-free, injectable Alberto Rusher DPM Work Phone: [facility] Payers Date Payer Category Payer Unknown 2017 Medicare MEDICARE MEDICAR E PART B [id number] 2017-Present [address] [address] [place] [address] Medicare [id number] 2017 Medicare xxxxxxxxxxx [id number] 1959 Medicare [id number] [id number]. [id number] 1959 Private Health Insurance [id number] 1.2.840.359955.1.13.239.2. 7.3.328983.315 1952 Unknown [id number] 2.16.840.1.243992.3.579.2. 593 1952 Unknown [id number] 2.16.840.1.345292.3.579.2. 593 1952 Unknown [id number] 2.16.840.1.454926.3.579.2. 593 1952 Unknown [id number] 2.16.840.1.420511.3.579.2. 593 1952 Unknown [id number] 2.16.840.1.552356.3.579.2. 593 1952 Unknown [id number] 2.16.840.1.015571.3.579.2. 593 1952 Unknown [id number] 2.16.840.1.975504.3.579.2. 593 1952 Unknown [id number] 2.16.840.1.432927.3.579.2. 593 1952 Unknown [id number] 2.16.840.1.532086.3.579.2. 593 1952 Unknown [id number] 2.16.840.1.732065.3.579.2. 593 1952 Unknown [id number] 2.16.840.1.379417.3.579.2. 593 1952 Unknown [id number] 2.16.840.1.495797.3.579.2. 593 1952 Unknown [id number] 2.16.840.1.480230.3.579.2. 173 1952 Unknown [id number] 2.16.840.1.602319.3.579.2. 173 1952 Unknown [id number] 2.16.840.1.864117.3.579.2. 1259 1952 Unknown [id number] 2.16.840.1.718809.3.579.2. 9 1952 Unknown [id number] 2.16.840.1.543492.3.579.2. 1258 1952 Unknown [id number] 2.16.840.1.590855.3.579.2. 1258 1952 Unknown [id number] 2.16.840.1.971157.3.579.2. 1258 1952 Unknown [id number] 2.16.840.1.413410.3.579.2. 1258 1952 Unknown [id number] 2.16.840.1.029015.3.579.2. 1258 1952 Unknown [id number] 2.16.840.1.832485.3.579.2. 1258 1952 Unknown [id number] 2.16.840.1.125554.3.579.2. 1952 Unknown [id number] 2.16.840.1.431681.3.579.2. 1952 Unknown [id number] 2.16.840.1.658582.3.579.2. 1952 Unknown [id number] 2.16.840.1.091419.3.579.2. 1952 Unknown [id number] 2.16.840.1.682985.3.579.2. 1952 Unknown [id number] 2.16.840.1.827773.3.579.2. 1952 Unknown [id number] 2.16.840.1.210497.3.579.2. 1952 Unknown [id number] 2.16.840.1.941373.3.579.2. 1952 Unknown [id number] 2.16.840.1.922562.3.579.2. 727 1952 Unknown [id number] 2.16.840.1.673421.3.579.2. 727 1952 Unknown [id number] 2.16.840.1.680640.3.579.2. 727 1952 Unknown [id number] 2.16.840.1.769963.3.579.2. 727 1952 Unknown [id number] 2.16.840.1.862941.3.579.2. 727 1952 Unknown [id number] 2.16.840.1.189434.3.579.2. 727 1952 Unknown [id number] 2.16.840.1.078620.3.579.2. 727 1952 Unknown [id number] 2.16.840.1.091871.3.579.2. 727 1952 Unknown [id number] 2.16.840.1.326072.3.579.2. 727 Medicare [id number] Social History Date Type Detail Facility Start: 10-18-2018 End: 12-05-2023 Tobacco smoking status NHIS Former smoker [place] End: 06-06-2012 History of tobacco use Current [place] Start: 10-18-2018 End: 05-17-2023 Cigarettes smoked current (pack per day) - Reported [facility] Start: 10-18-2018 End: 05-17-2023 Alcohol intake No [place] Start: 01-23-2014 Tobacco Comment quit smoking in 1999 [place] Start: 1950 Sex Assigned At Not on file [place] Start: 10-18-2018 End: 10-21-2021 Alcohol intake Current non-drinker of alcohol (finding) [place] Start: 10-22-2020 End: 04-19-2023 Tobacco use and exposure Never used [facility] Start: 01-18-2022 End: 01-28-2022 Exposure to SARS-CoV-2 (event) Not sure [employer] End: 06-06-2012 History of tobacco use Cigarette Smoker KITTY QUIROZ [employer] Work Phone: Start: 05-17-2023 End: 07-19-2023 Alcohol [...] Healthcare Functional Status Date Assessment Result Facility 12-05-2023 Functional Status N/A [facility] 06-20-2023 Functional Status N/A [facility] 11-05-2022 Functional Status N/A [facility] 06-18-2022 Functional Status N/A [facility] 05-17-2022 Functional Status N/A [facility] 02-01-2022 Functional Status N/A [facility] Clinical Notes 10-22-2020 to 12-05-2023 Alberto Ibrahim DPM - 07/19/2023 10:30 AM ESTPatient InstructionsTorie Lopez RN - 11/03/2022 2:30 PM EDTJoTorie biswas RN - 10/22/2020 11:30 AM EDT Note Date & Type Note Facility 12-05-2023 Hospital Discharge instructions Patient Education 12/05/2023 11:29:39 Hypogonadism, Male Hypogonadism, Male Male hypogonadism is [...] therapy. Follow these instructions at home: Take [id number]-hlo-hovpqwd and prescription medicines only as told by [...] provider. Document Revised: 01/22/2021 Document Reviewed: 01/22/2021 [employer] Patient Education 2022 [employer]. Follow Up Care 12/05/2023 07:35:26 With:KERI NOLASCO, Hudson Ordoñez, URL Address: [facility] [address] , [place] [address] [phone] When: Unknown [facility] 12-05-2023 Note Patient Education Urology Hypogonadism, Male Male hypogonadism [...] Follow these instructions at home: ? Take wtrz-mcp-folkkzl and prescription medicines only as told by [...] with your health care provider. Document Revised: (more content not included)... [facility] 11-07-2023 Hospital Discharge instructions Follow Up Care 11/07/2023 08:41:09 With:KERI NOLASCO, Hudson Ordoñez, URL Address: [facility] [address] [place] [address] [phone] When: Unknown [facility] 07-19-2023 History of Present illness Narrative Images [...] May 2023; effectively healed following treatment at [facility]. Currently relates no bleeding or [...] History: Procedure Laterality Date BACK SURGERY 2010 Geraldo Raza CATARACT EXTRACTION Left 2019 [facility] OTHER SURGICAL HISTORY 03/2017 lesions on bottom of both feet, [place] OTHER SURGICAL HISTORY 4 stents Geraldo [place] - 1997 OTHER SURGICAL HISTORY rectal cancer; surgery, chemo [place] and radiation [place]. OTHER SURGICAL HISTORY 09/30/2022 Dorsal Slit, RADHA Stevenson TOTAL KNEE ARTHROPLASTY Right 2014 Alexsander Brennan TOTAL KNEE ARTHROPLASTY Left 05/25/[address] HENSON Family History Family History Problem Relation Name Age of Onset Heart disease Mother Diabetes Mother Heart disease Father Diabetes Brother Colon cancer Brother Objective Physical Exam General assessment. Alert and oriented. Pleasant disposition. Presents wearing current DrBinta Gruber therapeutic footwear with custom orthoses. Vascular: [...] with wound right foot; effectively managed at [facility] wound care center. Care plan: conservative and [...] Alberto Ibrahim DPM documented in this encounter [facility] 07-19-2023 Instructions Alberto Ibrahim DPM - 07/19/2023 10:30 AM EST As noted documented in this encounter [facility] 06-20-2023 Hospital Discharge instructions Patient Education 06/20/2023 [...] therapy. Follow these instructions at home: Take yvmo-kbl-zwhcyhc and prescription medicines only as told by [...] provider. Document Revised: 01/22/2021 Document Reviewed: 01/22/2021 [employer] Patient Education 2022 [employer]. Follow Up Care 02/08/2023 12:23:35 With:KERI NOLASCO, Hudson Ordoñez, URL Address: [facility] [address] , [place] [address]- [phone] When: Unknown Comments:6 mos w/ PSA and T level (pt to also get PSA now) [facility] 04-08-2023 Note [place] [facility] Subjective Juan Miguel Jennings is a [...] of colon cancer Testicular hypofunction Hx of residential use of blood thinners Internal derangement of [...] man with prior history of CAD, s/p TN and stenting procedures in the past. He [...] Pravastatin Other Rosuvastatin (more content not included)... [facility] 11-05-2022 Hospital Discharge instructions Patient Education [...] urethra. Follow these instructions at home: Take tepe-akx-dxgnype and prescription medicines only as told by [...] provider. Document Revised: 12/09/2021 Document Reviewed: 12/09/2021 [employer] Patient Education 2022 [employer]. Follow Up Care 05/17/2022 10:46:35 With:KERI NOLASCO, Hudson Ordoñez, URL Address: [facility] [address] , [place] [address]- When: Unknown [facility] 11-03-2022 History of Present illness [...] for visit documented in this encounter [facility] Work Phone: 09-15-2022 Note EXAM: XR CHEST 2 V HISTORY: Pre-surgery evaluation COMPARISON: None. TECHNIQUE: PA and lateral views of the chest. FINDINGS: The cardiomediastinal silhouette is normal. No focal consolidation is identified. There is no pneumothorax. No pleural effusion is noted. The osseous structures are intact. IMPRESSION: No acute cardiopulmonary process. Electronically authenticated by: DARRIUS BOLTON Date: 2022-09-15 12:26 [facility] 06-18-2022 Hospital Discharge instructions Patient Education 06/18/2022 [...] urethra. Follow these instructions at home: Take kexk-lga-jgtsybr and prescription medicines only as told by [...] 05/23/2006 Document Revised: 04/17/2019 Document Reviewed: 06/27/2017 [employer] Patient Education 2019 [employer]. Follow Up Care 06/14/2022 09:33:13 With:KERI NOLASCO, Hudson Ordoñez, URL Address: [address] [place], [place] [id number]- When: Unknown [facility] 05-17-2022 Hospital Discharge instructions Patient [...] urethra. Follow these instructions at home: Take joqc-hnu-mibfitv and prescription medicines only as told by [...] 05/23/2006 Document Revised: 04/17/2019 Document Reviewed: 06/27/2017 [employer] Patient Education [employer]. Follow Up Care 04/21/2022 09:42:50 With:KERI NOLASCO, Hudson Ordoñez, URL Address: [facility] [address] , [place] [address]- When: Unknown [facility] 03-23-2022 Note PROCEDURE: XR FOOT [...] authenticated by: ALBERTO PAYAN Date: 2022-03-23 06:26 [facility] 02-01-2022 Hospital Discharge instructions Patient Education 02/01/2022 [...] urethra. Follow these instructions at home: Take trmd-dzj-vkyduel and prescription medicines only as told by [...] 05/23/2006 Document Revised: 04/17/2019 Document Reviewed: 06/27/2017 [employer] Patient Education 2020 [employer]. Follow Up Care 08/03/2021 15:20:11 With:KERI NOLASCO, Hudson Ordoñez, URL Address: [address] [place] [address]- When: Unknown [facility] 10-22-2020 History of Present illness [...] this encounter [facility]House Phone: Evaluation + Plan note Future Appointments Appointment Date:09/28/2021 09:00:00 AM Scheduled Provider[facility] Type:[facility]O Nurse Visit Appointment Date:02/01/2022 09:45:00 AM Scheduled Provider:Hudson STEVENSON MD [facility] App[facility] Type:URO Office Visit [facility] Evaluation + Plan note Future Appointments Appointment Date:10/26/2021 09:00:00 AM Scheduled Provider: [facility] Appoint[facility] Type:URO Nurse Visit Appointment Date:02/01/2022 09:45:00 AM Scheduled Provider:Hudson STEVENSON MD Location:[facility] Appointment Type:URO Office Visit [facility] Evaluation + Plan note Future Appointments Appointment Date:11/23/2021 09:00:00 AM Scheduled Provider: [facility] Appoint[facility] Type:URO Nurse Visit Appointment Date:02/01/2022 09:45:00 AM Scheduled Provider:Hudson STEVENSON MD [facility] Office Visit [facility] Evaluation + Plan note Future Appointments Appointment Date:12/21/2021 09:00:00 AM Scheduled Provider: [facility] Appoint[facility] Type:URO Nurse Visit Appointment Date:02/01/2022 09:45:00 AM Scheduled Provider:Hudson STEVENSON MD [facility] App[facility] Type:URO Office Visit [facility] Evaluation + Plan note Future Appointments Appointment Date:02/01/2022 09:45:00 AM Scheduled Provider:Hudson STEVENSON MD [facility] Appointment Type:URO Office Visit Diagnostic Tests PendingTestosterone Level Total 12/21/21 [facility] Evaluation + Plan note Future Appointments Appointment Date:03/01/2022 09:30:00 AM Scheduled Provider: Location:[facility] Appointment Type:URO Nurse Visit Diagnostic Tests PendingTestosterone Level Total 04/06/22PSA Total 03/06/22 [facility] Evaluation + Plan note Future Appointments Appointment Date:03/31/2022 08:15:00 AM Scheduled Provider: Location:[facility] Appointment Type:URO Nurse Visit [facility] Evaluation + Plan note Future Appointments Appointment Date:04/21/2022 09:15:00 AM Scheduled Provider: Location:[facility] Appointment Type:URO Nurse Visit [facility] Evaluation + Plan note Future Appointments Appointment Date:05/19/2022 08:00:00 AM Scheduled Provider:Mandy Schaefer MD Location:[facility] Appointment Type:URO Office Visit Diagnostic Tests PendingPSA Total 04/16/22Testosterone Level Total 04/16/22 [facility] Evaluation + Plan note Future Appointments Appointment Date:06/14/2022 09:00:00 AM Scheduled Provider: Location:[facility] Appointment Type:URO Nurse Visit Appointment Date:11/15/2022 08:45:00 AM Scheduled Provider:Hudson STEVENSON MD [facility] Type[facility] Office Visit Diagnostic Tests PendingPSA Total 05/17/22Testosterone Level Total 05/17/22 [facility] Evaluation + Plan note Future Appointments Appointment Date:09/06/2022 09:00:00 AM Scheduled Provider: Location:[facility] Appointment Type:URO Nurse Visit Appointment Date:11/15/2022 08:45:00 AM Scheduled Provider:Hudson STEVENSON MD Location:[facility] Appointment Type:URO Office Visit [facility] Evaluation + Plan note Future Appointments Appointment Date:10/05/2022 09:00:00 AM Scheduled Provider: [facility] App[facility] Type:URO Nurse Visit Appointment Date:10/29/2022 08:45:00 AM Scheduled Provider:Hudson STEVENSON MD [facility] App[facility] Type:URO Office Visit Appointment Date:11/05/2022 09:45:00 AM Scheduled Provider:Hudson STEVENSON MD Location:[facility] Appointment Type:URO Office Visit [facility] Evaluation + Plan note Future Appointments Appointment Date:11/05/2022 09:45:00 AM Scheduled Provider:Hudson STEVENSON MD [facility] Type:[facility]O Office Visit [facility] Evaluation + Plan note Future Appointments Appointment Date:12/03/2022 09:15:00 AM Scheduled Provider: Location:[facility] Appointment Type:URO Nurse Visit Diagnostic Tests PendingTestosterone Level Total 11/05/22PSA Total 11/05/22 [facility] Evaluation + Plan note Future Appointments Appointment Date:01/03/2023 08:15:00 AM Scheduled Provider: Location:[facility] Appointment Type:URO Nurse Visit [facility] Evaluation + Plan note Future Appointments Appointment Date:01/31/2023 08:45:00 AM Scheduled Provider: Location:[facility] Appointment Type:URO Nurse Visit [facility] Evaluation + Plan note Future Appointments Appointment Date:03/07/2023 08:45:00 AM Scheduled Provider: [facility] Type:[facility]O Nurse Visit Appointment Date:04/04/2023 08:45:00 AM Scheduled Provider: Location:[facility] Appointment Type:URO Nurse Visit Appointment Date:05/02/2023 08:45:00 AM Scheduled Provider: Location:[facility] Appointment Type:URO Nurse Visit Appointment Date:05/27/2023 09:45:00 AM Scheduled Provider:Hudson STEVENSON MD Location:[facility] Appointment Type:URO Office Visit [facility] Evaluation + Plan note Future Appointments Appointment Date:05/02/2023 08:45:00 AM Scheduled Provider: Location:[facility] Appointment Type:URO Nurse Visit Appointment Date:06/20/2023 10:30:00 AM Scheduled Provider:Hudson STEVENSON MD Location:[facility] Appointment Type:URO Office Visit [facility] Evaluation + Plan note Future Appointments Appointment Date:06/20/2023 10:30:00 AM Scheduled Provider:Hudson STEVENSON MD Location:[facility] Appointment Type:URO Office Visit Diagnostic Tests PendingTestosterone Level Total 05/09/23 [facility] Evaluation + Plan note Future Appointments Appointment Date:07/18/2023 09:30:00 AM Scheduled Provider: Location:[facility] Appointment Type:URO Nurse Visit Diagnostic Tests PendingPSA Total 06/20/23Testosterone Level Total 06/20/23 [facility] Evaluation + Plan note Future Appointments Appointment Date:08/15/2023 10:00:00 AM Scheduled Provider: Location:[facility] Appointment Type:URO Nurse Visit [facility] Evaluation + Plan note Future Appointments Appointment Date:09/09/2023 08:30:00 AM Scheduled Provider: Location:[facility] Appointment Type:URO Nurse Visit [facility] Evaluation + Plan note Future Appointments Appointment Date:10/07/2023 08:30:00 AM Scheduled Provider: Location:[facility] Appointment Type:URO Nurse Visit [facility] Evaluation + Plan note Future Appointments Appointment Date:11/07/2023 09:00:00 AM Scheduled Provider: Location:[facility] Appointment Type:URO Nurse Visit [facility] Evaluation + Plan note Future Appointments Appointment Date:12/05/2023 10:45:00 AM Scheduled Provider:Hudson STEVENSON MD Location:[facility] Appointment Type:URO Office Visit [facility] Evaluation + Plan note Future Appointments Appointment Date:01/02/2024 09:00:00 AM Scheduled Provider: Location:[facility] Appointment Type:URO Nurse Visit Diagnostic Tests PendingTestosterone Level Total 12/05/23emoglobin 12/05/23 [facility] Evaluation + Plan note Future Appointments Appointment Date:01/02/2024 09:00:00 AM Scheduled Provider: Location:[facility] Appointment Type:URO Nurse Visit [facility] Evaluation + Plan note Future Appointments Appointment Date:02/27/2024 09:00:00 AM Scheduled Provider: Location:[facility] Appointment Type:URO Nurse Visit [facility] Evaluation + Plan note Future Appointments Appointment Date:03/27/2024 09:00:00 AM Scheduled Provider: [facility] Type:[facility]O Nurse Visit Appointment Date:04/23/2024 09:30:00 AM Scheduled Provider: [facility] Type:URO Nurse Visit Appointment Date:05/21/2024 10:45:00 AM Scheduled Provider:Hudson STEVENSON MD Location:[facility] Appointment Type:URO Office Visit [facility] Evaluation note Diagnosis Polycythemia- Primary Polycythemia vera documented in this encounter [employer] Phone: evaluation note* Diagnosis Polycythemia- Primary Polycythemia vera documented in this encounter KITTY QUIROZ [employer] Phone: evaluation note* Diagnosis Dermatophytosis of nail- Primary Dystrophic nail Other specified disease of nail Diabetic polyneuropathy associated with type 2 diabetes mellitus (CMS/HCC) Nontraumatic amputation of foot, right (CMS/HCC) Nontraumatic amputation of foot, left (CMS/HCC) Acquired keratoderma [facility] Narrative No data available for this section [facility] [employer] Hospital Discharge instructions No data available for this section [facility] [employer] App progress note No data available for this section [facility] [employer] Summary Purpose Family History No Family History [...] this section No Family History Records Found Advance Directives No Advanced Directives Records FoundDocuments on File Type Date Recorded Patient Environmental Specialist Expl anation Advance Directives and Livin g Will Advance Directives and Livin g Will 08/31/2013 9:46 AM Power of Electric Shipyard Operator Power of Electric Shipyard Operator 08/31/2013 9:46 AM Latest Code Status on File Code Status Date Activated Date Inactivated Comments Full Code 08/06/2016 9:06 AM 08/09/2016 5:53 PM Full Code 08/04/2016 9:28 PM 08/06/2016 9:06 AM Full Code 05/15/2015 12:42 PM 05/19/2015 6:52 PM Full Code 05/12/2015 11:22 AM 05/15/2015 12:42 PM Full Code 05/13/2014 2:36 PM 05/13/2014 9:20 PM Documents on File Type Date Recorded Patient Environmental Specialist Expl anation ACP-Advance Directive ACP-Power of Electric Shipyard Operator ACP-Advance Directive 08/31/2013 9:46 AM ACP-Power of Electric Shipyard Operator 08/31/2013 9:46 AM Documents on File Type Date Recorded Patient Environmental Specialist Expl anation ACP-Advance Directive 08/31/2013 9:46 AM ACP-Power of Electric Shipyard Operator 08/31/2013 9:46 AM Latest Code Status on [...] Documents on File Type Date Recorded Patient Environmental Specialist Expl anation Advance Directives and Living Will 11/20/2019 2018-05-09 Living Wi ll Advance Directives and Living Will 11/20/2019 2018-05-09 Power Of Electric Shipyard Operator History of Present Illness * Luh Hoffman [...] section and content) DATE CREATED AUTHOR 11/24/2017 [facility] DATE CREATED AUTHOR AUTHOR'S ORGANIZ ATION 03/15/2018 [facility] DATE CREATED AUTHOR AUTHOR'S ORGANIZ ATION 07/01/2021 [facility] DATE CREATED AUTHOR AUTHOR'S ORGANIZ ATION 09/26/2021 [facility] dical Specialist DATE CREATED AUTHOR AUTHOR'S ORGANIZ ATION 11/13/2022 [facility] DATE CREATED AUTHOR AUTHOR'S ORGANIZ ATION 04/09/2023 [facility] DATE CREATED AUTHOR AUTHOR'S ORGANIZ ATION 11/10/2023 [facility] DATE CREATED AUTHOR AUTHOR'S ORGANIZ ATION 01/12/2024 [facility] dical Specialists EPIC DATE CREATED AUTHOR AUTHOR'S ORGANIZ ATION 02/25/2024 [facility] DATE CREATED AUTHOR AUTHOR'S ORGANIZ ATION 03/01/2024 [facility] Care Team (unrecognized sect ion and content) Auto Tune Up Mechanic Relationship Specialty Start Date End Date Jordan Duncan MD PCP - General 07/25/19 [employer] Up Mechanic Relationship Specialty Start Date End Date Jordan Duncan MD [address] [place] [address] PCP - General Family Medicine 10/25/22 Mitch Mello MD [address] [place] [address] Referring Physician Cardiology 05/17/23 Jr. Anuja Henson DO [address] [facility] [address] [place] [address] Referring Physician Orthopaedic Surgery 05/17/23 Alberto Ibrahim DPM [address] [place], [place] [phone] Referring Physician Podiatry 05/17/23 Auto Tune Up Mechanic Relationship Specialty Start Date End Date Jordan Duncan MD [address] [place] [address] PCP - General Family Medicine 10/25/22 Mitch Mello MD [address] [place] [address] Referring Physician Cardiology 05/17/23 Jr. Anuja Henson DO [address] [facility] [address] [place] [address] Referring Physician Orthopaedic Surgery 05/17/23 Alberto Ibrahim DPM [address] [place], [place] [id number] Referring Physician Podiatry 05/17/23 Reason for Visit [...] BE BASED ON THE PRIMARY CLINICAL RECORDS. [facility] [employer] [facility]. provides no warranty or guarantee of the accuracy or completeness of information in this document.
== END 2024-03-02 09:57 | disposition home or self-care (01) ==
LOC: WC 09:56
PROVIDERS: PCP Family Medicine; Visit Provider Podiatrist Foot & Ankle Surgery
DX: L84 Corns and callosities (principal); E11.40 Type 2 diabetes mellitus with diabetic neuropathy, unspecified
CPT/HCPCS: G0463

== ENCOUNTER 2024-04-17 14:51 | Outpatient (OUT) | payer MEDICARE, SELFPAY | END 2024-04-17 14:52 | disposition home or self-care (01) | LOC: WC 14:52 | PROVIDERS: PCP Family Medicine; Visit Provider Physician Assistant | DX: E11.621 Type 2 diabetes mellitus with foot ulcer (principal); L97.411 Non-pressure chronic ulcer of right heel and midfoot limited to breakdown of skin; L84 Corns and callosities; E11.40 Type 2 diabetes mellitus with diabetic neuropathy, unspecified | CPT/HCPCS: 11042 ==

== ENCOUNTER 2024-05-01 09:58 | Outpatient (OUT) | payer MEDICARE, SELFPAY ==
--- OUTSIDE RECORDS SUMMARY | 2024-05-01 10:12 | XMS_ITS | CCD ---
Author Organization [facility] Care Team Providers Care Pastoral Assistant Name Role Phone PHYSICIAN, DEFAULT Unavailable Unavailable PHYSICIAN, DEFAULT Unavailable Unavailable Diego Bartlett Primary Care Provider [phone] Jordan Duncan Primary Care Provider Jordan Duncan MD Primary Care Provider JORDAN DUNCAN Primary Care Physician [phone] Jordan Duncan MD Primary Care Provider [phone] JORDAN DUNCAN Primary Care Physician Unavail able [...] ARNOLD PEOPLES Attending Unavailable HEMEYER ., DR LAATORRE Primary Care Unavailable STEVENSON ., DR OBANDO [...] DR OBANDO Admitting Unavailable DARRIUS BOLTON Unavailable HIGHLANDER, PETER Marion Attending Unavailable HIGHLANDER, PETER D Admitting Unavailable HEMEYER ., DR ALATORRE Primary Care Unavailable BEENA, ENEDINA Schultz Attending Unavailable HIGHLSULAIMAN, PETER D Admitting Unavailable HEMEYER ., DR ALATORRE Primary Care Unavailable ANUJA DENTON Attending Unavailable Hemeyer Jordan NOLASCO Primary Care Provider Mitch Mello MD Unavailable [phone] Jr. Anuja Henson DO Unavailable Brody Ibrahim DPM Unavailable [phone] WILLI SANCHEZ Referring Unavailable HEMEYER, JORDAN Brown Primary Care Unavailable WILLI SANCHEZ Referring Unavailable HEMEYER, JORDAN Brown Primary Care Unavailable Hemeyer Jordan NOLASCO Unavailable Jordan Duncan MD Primary Care Provider [phone] Jordan Duncan MD Unavailable [phone] EVANGELIST, BRODY Xiao Attending Unavailable RUSHER, BRODY Xiao Attending Unavailable HEMEYER, JORDAN Brown Attending Unavailable HEMEYER, JORDAN Brown Attending Unavailable RUSHER, BRODY Xiao Attending Unavailable RUSHER, BRODY Xiao Attending Unavailable HEMEYER, JORDAN Brown Attending Unavailable RUSHER, BRODY A Attending Unavailable HEMEYER, JORDAN Brown Attending Unavailable RUSHER, BRODY A Attending Unavailable RUSHER, BRODY A Attending Unavailable STEVENSON, Topher R Attending Unavailable STEVENSON, Topher R Attending Unavailable STEVENSON, Topher R Attending Unavailable STEVENSON, Topher R Attending Unavailable STEVENSON, Topher R Attending Unavailable STEVENSON, Topher R Attending Unavailable STEVENSON, Topher R Attending Unavailable STEVENSON, Topher R Attending Unavailable Orzech, Fernanda X Attending Unavailable STEVENSON, Topher R Attending Unavailable STEVENSON, Topher R Attending Unavailable STEVENSON, Topher R Attending Unavailable STEVENSON, Topher R Attending Unavailable STEVENSON, Topher R Attending Unavailable STEVENSON, Topher R Attending Unavailable STEVENSON, Topher R Attending Unavailable Allergies Allergy Classification Reported Allergen(s) Allergy Type Date of Onset Reaction(s) Facility (4 sources) Clindamycin/Linc omycin Propensity to adverse reactions to drug 8 Diarrhea [place], [place] (2 sources) Clindamycin Drug Allergy 2 [facility] (3 sources) glipiZIDE; 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: [GLIPIZIDE] Drug Allergy 2 Diarrhea [facility] [employer] Work Phone: (18 sources) metFORMIN; 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: [METFORMIN] Drug Allergy 2 Diarrhea, Unknown [facility] [employer] Work Phone: (18 sources) Pravastatin; 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: [PRAVASTATIN] Drug Allergy 2 Unknown [employer] Work Phone: (3 sources) rosuvastatin; 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: [ROSUVASTATIN] Drug Allergy 2 [employer] [employer] Work Phone: (2 sources) Clindamycin; 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: [CLINDAMYCIN] Drug Allergy 7 [facility] (1 source) glipiZIDE Drug Allergy 7 [facility] (1 source) metFORMIN Drug Allergy 7 [facility] (16 sources) ezetimibe; 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: [EZETIMIBE] Drug Allergy 2 Unknown [facility] (15 sources) Clindamycin Drug Allergy 2 Diarrhea [facility] (15 sources) glipiZIDE Drug Allergy 2 Diarrhea, Unknown [facility] (15 sources) Rosuvastatin calcium Allergy to substance 1 Unknown [facility] Medications Current Medications Medication Drug Class(es) Dates Sig (Normalized) Sig (Original) aspirin 81 mg delayed release oral tablet (20 sources) Platelet Aggregation Inhibitor, Nonsteroidal Anti-inflammatory Drug Start: 04-19-2023 take 1 tablet by mouth in the morning aspirin 81 MG EC tablet Indications: Arteriosclerosis of coronary artery (CMS/HCC) Take 1 tablet (81 mg) by mouth in the morning. 04/19/2023 Active Start: 01-01-2019 take 1 mg by mouth once daily aspirin 81 mg oral tablet mg tab(s), Oral, Daily, Refills(s) 0 Start Date: 01/01/19 Status: Ordered B Complex Vitamins (VITAMIN B COMPLEX PO) (20 sources) take 1 tablet by piper th in the morning B Complex Vitamins (VITAMIN B COMPLEX PO) Take 1 tablet by mouth in the morning. Active take 1 tablet by mouth in the mo rning B Complex Vitamins (VITAMIN B COMPLEX PO) [...] 1-0.2 % suspension every 8 (eight) hours. Active brinzolamide-latia monidine 1-0.2 % SUSP Apply to eye 3 times daily 0 Active cholecalciferol 0.05 mg oral tablet (20 sources) Vitamin D cholecalciferol (Vitamin D-3) 50 MCG (2000 UT) tablet Take by mouth. Active Cholecalciferol (VITAMIN D3) 50 MCG (2000 UT) TABS Take by mouth daily 0 Active Cholecalciferol (VITAMIN D3) 3000 UNITS TABS Take by mouth daily 0 Active Cholecalciferol (VITAMIN D3) 3000 UNITS TABS Take by mouth. 0 Active cyclobenzaprine hydrochloride 10 mg oral tablet (20 sources) Muscle Relaxant Start: 04-19-2023 take 1 tablet by mouth three times daily as needed for muscle spasms cyclobenzaprine (Flexeril) 10 MG tablet Indications: Lumbar paraspinal muscle spasm Take 1 tablet (10 mg) by mouth 3 (three) times a day as needed for muscle spasms. 90 tablet 04/19/2023 Active diclofenac sodium 75 mg delayed release oral tablet (14 sources) Nonsteroidal Anti-inflammatory Drug Start: 05-17-2023 End: 08-15-2023 diclofenac sodium 75 mg Oral EC Tab Refills(s) 0 Start Date: 06/20/23 Status: Ordered empagliflozin 25 mg oral tablet (20 sources) Sodium-Glucose Cotransporter 2 Inhibitor Start: 08-17-2018 take 1 mg by mouth once daily in the morning Jardiance 25 mg oral tablet mg tab(s), Oral, qAM, Refills(s) 0 Start Date: 01/01/19 Status: Ordered famotidine 20 mg oral tablet (13 sources) Histamine-2 Receptor Antagonist Start: 12-13-2023 take 1 tablet by mouth in the morning famotidine (Pepcid) 20 MG tablet Indications: Dyspepsia Take 1 tablet (20 mg) by mouth in the morning and 1 tablet (20 mg) before bedtime. 180 tablet 12/13/2023 Active glipiZIDE 10 mg oral tablet (20 sources) [...] EYES AT BEDTIME Ophthalmic for 90 Days 07/27/2018 Active Start: 07-27-2018 take 1 drop(s) [...] Angiotensin 2 Receptor Justice Start: 04-19-2023 End: 09-23-2024 take 1 tablet by mouth once daily losartan (Cozaar) 50 MG tablet Indications: Essential hypertension (CMS/HCC) Take 1 tablet (50 mg) by mouth Daily 90 tablet 1 03/27/2024 09/23/2024 Active Start: 09-29-2021 take 1 tablet by piper once daily losartan (COZAAR) 50 MG tablet TAKE 1 TABLET BY MOUTH EVERY DAY FOR 90 DAYS 0 09/29/2021 Active Start: 02-25-2020 losartan 100 m g Tab Refills(s) 0 Start Date: 02/25/20 Status: Ordered take 2 tablets by mo [facility] once daily losartan (COZAAR) 25 MG tablet Take 50 mg by mouth daily 0 Active metoprolol tartrate 100 mg oral tablet (20 sources) beta-Adrenergic Justice Start: 10-12-2023 End: 09-23-2024 metoprolol tartrate (Lopressor) 100 MG tablet Indications: Essential hypertension (CMS/HCC) Take 1 tablet (100 mg) by mouth See administration instructions 1 tablet in AM. 0.5 tablet in PM 135 tablet 1 03/27/2024 09/23/2024 Active Start: 06-20-2023 METOPROLOL TAR TRATE 100 MG TAB METOPROLOL TARTRATE 100 MG TAB Start Date: 06/20/23 Status: Ordered Start: 04-20-2023 End: 10-17-2023 take 1.5 tablets by mouth every twenty-four hours in the morning metoprolol succinate XL (Toprol XL) 100 MG 24 hr tablet Indications: Atherosclerosis of [place] coronary artery of [place] heart without angina pectoris (CMS/HCC) Take 1.5 tablets (150 mg) by mouth in the morning. Do not crush or chew.. 135 tablet 1 04/20/2023 10/17/2023 Active take 2 tablets by mo [facility] twice daily in the evening metoprolol (TOPROL-XL) 25 MG XL tablet Take 2 tablets by mouth 2 times daily 100mg in the am, 50mg in the pm 0 Active Multiple Vitamin (MULTIVITAMIN ADULT PO) (1 source) Multiple Vitamin (MULTIVITAMIN ADULT PO) Take by mouth 0 Active Multiple Vitamin (multivitamin) capsule (15 sources) take 1 capsule by mo [facility] in the morning Multiple Vitamin (multivitamin) capsule Take 1 capsule by mouth in the morning. Active take 1 capsule by mouth in the m orning Multiple Vitamin (multivitamin) capsule Take 1 capsule by mouth in the morning. 0 Active niacin 500 mg oral tablet (14 sources) Nicotinic Acid Start: 04-19-2023 End: 04-18-2024 take 2 tablets by mouth in the evening niacin 500 MG tablet Indications: Mixed hyperlipidemia (CMS/HCC) Take 2 tablets (1,000 mg) by mouth in the evening. 180 tablet 04/19/2023 04/18/2024 Active take 1 tablet by mouth twice pablo ly niacin 500 MG tablet Take 500 mg by mouth 2 times daily 0 Active 24 hr oxybutynin chloride 5 mg extended release oral tablet (20 sources) Cholinergic Muscarinic Antagonist Start: 09-08-2017 take 1 tablet by mouth once daily oxybutynin XL (Ditropan-XL) 5 MG 24 hr tablet oxybutynin chloride ER 5 mg tablet,extended release 24 hr TAKE 1 TABLET BY MOUTH EVERY DAY 09/08/2017 Active pioglitazone 30 mg oral tablet (20 sources) Peroxisome Proliferator Receptor alpha Agonist, Peroxisome Proliferator Receptor gamma Agonist, Thiazolidinedione Start: 04-19-2023 End: 09-23-2024 take 1 tablet by mouth in the morning pioglitazone (Actos) 30 MG tablet Indications: Type 2 diabetes mellitus with diabetic polyneuropathy, without long-term current use of insulin (CMS/HCC) Take 1 tablet (30 mg) by mouth in the morning. 90 tablet 1 03/27/2024 09/23/2024 Active Start: 02-25-2020 pioglitazone 4 5 mg Tab Refills(s) 0 Start Date: 02/25/20 Status: Ordered take 1 tablet by piper th once daily pioglitazone (ACTOS) 30 MG tablet [...] 0 Active sucralfate 1000 mg oral tablet (12 sources) Aluminum Complex Start: 12-05-2023 sucralfate 1 g Tab Refills(s) 0 Start Date: 12/05/23 Status: Ordered Start: 10-12-2023 End: 03-27-2024 sucralfate (Carafate) 1 g ta blet Indications: RUQ pain Dissolve 1 tablet in 2 oz water. Take 30 minutes before meals 3 times daily and at bedtime 120 tablet 10/12/2023 03/27/2024 Discontinued (Therapy completed) tamsulosin hydrochloride 0.4 mg oral capsule (20 sources) alpha-Adrenergic Justice Start: 01-11-2024 take 1 capsule by mouth twice daily tamsulosin 0.4 mg Cap 0.4 mg = 1 cap(s), Oral, BID, # 180 cap(s), Refills(s) 3, Pharmacy: [id number], 198, cm, 12/05/23 10:49:00 EDT, Height/Length Dosing, 150.3, kg, 12/05/23 10:49:00 EDT, Weight Dosing Start Date: 01/11/24 Status: Ordered Start: 05-26-2023 take 1 capsule by [facility] once daily tamsulosin 0.4 mg Cap 0.4 mg = 1 cap(s), Oral, Daily, # 90 cap(s), Refills(s) 3, Pharmacy: [facility] [place] #[id number], 198, cm, 11/05/22 10:14:00 EDT, Height/Length Dosing, 150, kg, 11/05/22 10:14:00 EDT, Weight Dosing Start Date: 05/26/23 Status: Ordered Start: 06-18-2022 take 1 capsule by [facility] once daily tamsulosin 0.4 mg Cap 0.4 mg = 1 cap(s), Oral, Daily, # 90 cap(s), Refills(s) 3, Pharmacy: [facility] [place]/[facility]acy #[id number], 198, cm, 06/18/22 9:10:00 EST, Height/Length Dosing, 164, kg, 06/18/22 9:10:00 EST, Weight Dosing Start Date: 06/18/22 Status: Ordered take 1 capsule by [facility] every twenty-four hours in the morning tamsulosin (Flomax) 0.4 MG 24 hr capsule Take 0.4 mg by mouth in the morning and 0.4 mg in the evening. Take after meals. Active 1 ml testosterone cypionate 200 mg/ml injection (20 sources) Androgen Start: 07-12-2017 testosterone c ypionate (DEPOTESTOTERONE CYPIONATE) 200 MG/ML injection Inject 1 mL into the muscle. Once a month 4 07/12/2017 Active testosterone cypionate 200 mg/mL IM Richelle (20 sources) Start: 03-27-2024 testosterone c ypionate 200 mg/mL IM [place] 400 mg, IntraMuscular, q4wk, # 10 mL, Refills(s) 1, Pharmacy: [facility] [place]/[facility][id number], 198, cm, 12/05/23 10:49:00 EDT, Height/Length Dosing, 150.3, kg, 12/05/23 10:49:00 EDT, Weight Dosing Start Date: 03/27/24 Status: Ordered Start: 01-03-2024 testosterone c ypionate 200 mg/mL IM Richelle 400 mg, IntraMuscular, q4wk, # 10 mL, Refills(s) 1, Pharmacy: [facility] [place]/[id number], 198, cm, 12/05/23 10:49:00 EDT, Height/Length Dosing, 150.3, kg, 12/05/23 10:49:00 EDT, Weight Dosing Start Date: 01/03/24 Status: Ordered Start: 06-20-2023 testosterone c ypionate 200 mg/mL IM Richelle 450 mg, IntraMuscular, q4wk, # 10 mL, Refills(s) 1, Pharmacy: [facility] [place]/[facility]acy #[id number], 198, cm, 06/20/23 11:05:00 EST, Height/Length Dosing, 149, kg, 06/20/23 11:05:00 EST, Weight Dosing Start Date: 06/20/23 Status: Ordered Start: 05-09-2023 testosterone c ypionate 200 mg/mL IM Richelle 400 mg, IntraMuscular, q4wk, # 10 mL, Refills(s) 1, Pharmacy: [facility] [place]/[id number], 198, cm, 11/05/22 10:14:00 EDT, Height/Length Dosing, 150, kg, 11/05/22 10:14:00 EDT, Weight Dosing Start Date: 05/09/23 Status: Ordered Start: 02-08-2023 testosterone c ypionate 200 mg/mL IM Richelle 400 mg, IntraMuscular, q4wk, # 10 mL, Refills(s) 2, Pharmacy: [facility] [place]/[facility] #[id number], 198, cm, 11/05/22 10:14:00 EDT, Height/Length Dosing, 150, kg, 11/05/22 10:14:00 EDT, Weight Dosing Start Date: 02/08/23 Status: Ordered Start: 08-27-2022 testosterone c ypionate 200 mg/mL IM Richelle 400 mg, IntraMuscular, q4wk, # 10 mL, Refills(s) 2, Pharmacy: [facility] [place]/[facility]acy #[id number], 198, cm, 06/18/22 9:10:00 EST, Height/Length Dosing, 164, kg, 06/18/22 9:10:00 EST, Weight Dosing Start Date: 08/27/22 Status: Ordered testosterone cypionate 200 mg/mL intramuscular solution (17 sources) Start: 02-01-2022 testosterone c ypionate 200 mg/mL intramuscular solution 400 mg = 2 mL, IntraMuscular, q4wk, 400mg once a month, # 10 mL, Refills(s) 3, Pharmacy: [facility] [place]/pharmacy #[id number], 198, cm, 02/01/22 9:53:00 EDT, Height/Length Dosing, 166, kg, 02/01/22 9:53:00 EDT, Weight Dosing Start Date: 02/01/22 Status: Ordered Start: 11-23-2021 testosterone c ypionate 200 mg/mL intramuscular solution 350 mg, IntraMuscular, q4wk, # 10 mL, Refills(s) 1, Pharmacy: [facility] [place]/[facility] #[id number], 198, cm, 08/03/21 14:37:00 EST, Height/Length Dosing, 166, kg, 08/03/21 14:37:00 EST, Weight Dosing Start Date: 11/23/21 Status: Ordered Start: 08-03-2021 testosterone c ypionate 200 mg/mL intramuscular solution 350 mg, IntraMuscular, q4wk, # 10 mL, Refills(s) 1, Pharmacy: [facility] [place]/[facility] #[id number], 198, cm, 08/03/21 14:37:00 EST, Height/Length Dosing, 166, kg, 08/03/21 14:37:00 EST, Weight Dosing Start Date: 08/03/21 Status: Ordered timolol 0.005 mg/mg ophthalmic gel (20 sources) beta-Adrenergic Justice Start: 05-23-2014 apply 1 drop(s) into the eye(s) once daily timolol (TIMOPTIC-XE) 0.5 % ophthalmic gel-forming Place 1 drop into both eyes daily 3 05/23/2014 Active take 1 drop(s) into the eye(s) at bedtime timolol (Timoptic) 0.25 % ophthalmic solution Administer 1 drop into both eyes at bedtime Active Completed/Discontinued Medications Medication Drug Class(es) Dates Sig (Normalized) Sig (Original) Fish Oils (1 source) End: 01-12-2019 FISH OIL by Does not apply route daily 0 01/12/2019 Discontinued (Therapy completed) netarsudil 0.2 mg/ml ophthalmic solution (10 sources) Rho Kinase Inhibitor Start: 07-21-2021 End: 03-27-2024 take 1 drop(s) into the eye(s) once daily Rhopressa 0.02 % solution INSTILL 1 DROP INTO LEFT EYE EVERY NIGHT Ophthalmic for 30 07/21/2021 03/27/2024 Discontinued (Therapy completed) Problems Active Problems Problem Classification Problem Date Documented Da te Episodic/Chronic Acquired foot deformities (20 sources) Hallux rigidus, right foot; 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: [Acquired hallux malleus] Onset: 05-03-2022 Resolved: 03-28-2024 01-11-2023 Chronic Acquired foot deformities (3 sources) Other hammer toe(s) (acquired), left foot; 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: [Acquired hallux malleus of left great toe] Onset: 05-03-2022 03-28-2024 Chronic Acute myocardial infarction (20 sources) Myocardial infarction 02-19-2019 Chronic Cancer of rectum and anus (6 sources) Malignant tumor of anus; 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: [Malignant neoplasm of anus, unspecified] Onset: 03-15-2012 08-04-2016 Chronic Chronic kidney disease (15 sources) Chronic kidney disease stage 2; 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: [Chronic kidney disease, stage 2 (mild)] Onset: 11-15-2019 Resolved: 10-14-2023 01-11-2023 Chronic Coronary atherosclerosis and other heart disease (20 sources) Coronary arteriosclerosis; 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: [Atherosclerotic heart disease of [place] coronary artery without angina pectoris] Onset: 04-08-2017 [...] other diabetic neurological complication] Onset: 08-04-2016 Resolved: 10-14-2023 08-04-2016 Chronic Disorders of lipid metabolism (20 sources) Hyperlipidemia; 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: [Hyperlipidemia, unspecified] Onset: 05-13-2014 05-13-2014 Chronic Essential hypertension (20 sources) Hypertensive disorder; 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: [Essential (primary) hypertension] Onset: 05-13-2014 08-04-2016 Chronic Glaucoma (20 sources) Open-angle glaucoma; 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: [Unspecified open-angle glaucoma, stage unspecified] Onset: 01-11-2023 Resolved: 01-13-2023 02-19-2019 Chronic Hyperplasia of prostate (20 sources) Benign prostatic hypertrophy with outflow obstruction; 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: [Benign prostatic hyperplasia with lower urinary tract symptoms] Onset: 02-01-2022 09-08-2020 Chronic Mycoses (6 sources) Tinea unguium; 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: [Onychomycosis due to dermatophyte ] Onset: 04-15-2022 Episodic Open wounds of extremities (20 sources) Amputated foot; 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: [Complete traumatic amputation of unspecified foot, level unspecified, initial encounter] Onset: 09-11-2020 01-11-2023 Chronic Osteoarthritis (20 sources) Osteoarthritis of knee; 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: [Osteoarthritis of knee, unspecified] Onset: 02-25-2021 Resolved: 01-13-2023 01-11-2023 Chronic 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 (1 source) assisted (current) use of anticoagulants; 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: [MANAGER HVAC CURRNT USE ANTICOAGULANTS] Onset: 10-12-2022 Episodic 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 (1 source) assisted (current) use of aspirin; 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: [DETENTION CURRENT USE OF ASPIRIN] Onset: 10-12-2022 Episodic 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 (1 source) long term acute care registered nurse (current) use of oral hypoglycemic drugs; 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: [DETENTION USE ORAL HYPOGLYCEMIC DX] Onset: 10-12-2022 Episodic 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 (1 source) Other longwall shearer operator (current) drug therapy; 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: [OTH MANAGER HVAC CURRENT DRUG THERAPY] Onset: 09-20-2022 Episodic Other circulatory disease (1 source) Other specified peripheral vascular diseases; 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: [OTH SPEC PERIPHERAL VASC DISEASES] Onset: 05-03-2022 Chronic Other connective tissue disease (1 source) Presence of artificial knee joint, bilateral; 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: [PRESENCE ARTIFICIAL KNEE JNT BILAT] Onset: 10-12-2022 Chronic Other connective tissue disease (15 sources) Artificial knee joint present; 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: [Presence of artificial knee joint, bilateral] Onset: 05-25-2021 05-17-2023 Chronic Other diseases of veins and lymphatics (2 sources) Disorder of vein of lower extremity; 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: [Venous insufficiency (chronic) (peripheral)] 03-28-2024 Episodic Other endocrine disorders (19 sources) Disorder of pituitary gland; 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: [Disorder of pituitary gland, unspecified] Onset: 08-31-2021 Chronic Other endocrine disorders (20 sources) Hypogonadism 01-01-2019 Chronic Other endocrine disorders (20 sources) Male hypogonadism; 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: [Testicular hypofunction] Onset: 01-11-2023 01-01-2019 Chronic Other endocrine disorders (8 sources) Testicular hypofunction; 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: [Testicular hypofunction] Onset: 12-21-2021 Chronic Other endocrine disorders (1 source) Testicular hypofunction; 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: [TESTICULAR HYPOFUNCTION] Onset: 10-12-2022 Chronic Other gastrointestinal disorders (20 sources) H/O: liver disease 11-05-2019 Episodic Other liver diseases (15 sources) Steatosis of liver; 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: [Fatty (change of) liver, not elsewhere classified] Onset: 04-08-2017 01-11-2023 Chronic Other male genital disorders (20 sources) Impotence 01-01-2019 Chronic Other male genital disorders (5 sources) Phimosis; 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: [PHIMOSIS] Onset: 09-20-2022 Episodic Other nervous system disorders (20 sources) Chronic pain; Translations: [Other chronic pain] Onset: 12-25-2020 Resolved: 01-13-2023 01-13-2023 Chronic Other nutritional; endocrine; and metabolic disorders (20 sources) Morbid obesity; Translations: [Morbid (severe) obesity due to excess calories] Onset: 08-05-2016 08-05-2016 Chronic Other skin disorders (1 source) Dystrophia unguium; Translations: [Nail dystrophy] 07-19-2023 Episodic Other skin disorders (3 sources) Acquired keratoderma; Translations: [Acquired keratosis [keratoderma] palmaris et plantaris] 07-19-2023 Episodic Residual codes; unclassified (20 sources) Obstructive sleep apnea syndrome; Translations: [Obstructive sleep apnea (adult) (pediatric)] Onset: 10-01-2015 08-04-2016 Chronic Residual codes; unclassified (20 sources) Sleep apnea 02-19-2019 Chronic Residual codes; unclassified (1 source) Sleep apnea, unspecified; Translations: [SLEEP APNEA UNSPECIFIED] Onset: 10-12-2022 Chronic Residual codes; unclassified (2 sources) Obstructive sleep apnea (adult) (pediatric); Translations: [Obstructive sleep apnea (adult) (pediatric)] Onset: 04-08-2023 Chronic Residual codes; unclassified (15 sources) Dependence on enabling machine or device; Translations: [Dependence on other enabling machines and devices] Onset: 03-04-2021 01-11-2023 Chronic Residual codes; unclassified (1 source) Family history [...] deformities of left foot] Onset: 05-03-20 Episodic Cancer of colon (20 sources) History of malignant neoplasm of colon; Translations: [Personal history of other malignant neoplasm of large intestine] Onset: 10-13-1902-19-2019 Episodic Chronic ulcer of skin (19 sources) Non-pressure chronic ulcer of other part of right foot with fat layer exposed; Translations: [Non-pressure chronic ulcer of left heel and midfoot limited to breakdown of skin] Onset: 01-14-20 Resolved : 01-14-2001-13-2023 Chronic E Codes: Adverse effects of medical drugs (17 sources) HMG COA reductase inhibitor adverse reaction; Translations: [Adverse effect of antihyperlipidemic and antiarteriosclerotic drugs, initial encounter] Onset: 09-11-1901-11-2023 Episodic Genitourinary symptoms and ill-defined conditions (20 sources) Increased frequency of urination; Translations: [Nocturia] Onset: 11-15-19 Resolved : 10-10-1901-01-2019 Episodic Infective arthritis and osteomyelitis (except that caused by tuberculosis or sexually transmitted disease) (20 sources) Acute osteomyelitis of metatarsal; Translations: [Other acute osteomyelitis, right ankle and foot] Onset: 08-06-19 Resolved : 01-14-2008-05-2016 Chronic Joint disorders and dislocations; trauma-related (15 sources) Derangement of left knee; Translations: [Unspecified internal derangement of left knee] Onset: 01-24-20 Resolved : 01-14-2001-13-2023 Chronic Mood disorders (15 sources) Mood disorders Onset: 05-17-2005-17-2023 Other connective tissue disease (15 sources) History of total knee arthroplasty; Translations: [...] FOOT] Onset: 03-22-20 Episodic Other endocrine disorders (15 sources) Hypotestosteronism; Translations: [Endocrine disorder, unspecified] Onset: 04-08-2001-11-2023 Episodic Other gastrointestinal disorders (15 sources) Chronic constipation; Translations: [Other constipation] Onset: 01-12-2026 01-08-2023 Episodic Other hematologic conditions (20 sources) Erythrocytosis; 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] Onset: 04-05-20 14 04-05-2014 Episodic Other hematologic conditions (1 source) Secondary polycythemia; 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] Onset: 04-05-20 14 Episodic Other lower respiratory disease (1 source) Other specified respiratory disorders; Translations: [OTHER SPEC RESPIRATORY DISORDERS] Onset: 01-20-20 Episodic Other male genital disorders (20 sources) Phimosis; Translations: [Phimosis] Onset: 05-17-20 Resolved : 01-14-20 Episodic Other nervous system disorders (15 sources) Difficulty walking; Translations: [Difficulty in walking, not elsewhere classified] Onset: 05-26-20 Resolved : 10-10-19 24 01-11-2023 Chronic Other nervous system disorders (15 sources) Drug-induced myopathy; Translations: [Drug-induced myopathy] Onset: 11-01-19 21 01-11-2023 Episodic Other screening for suspected conditions (not mental disorders or infectious disease) (20 sources) Patient encounter status; Translations: [Encounter for screening for malignant neoplasm of colon] Onset: 02-13-20 Resolved : 04-03-20 18 04-03-2018 Episodic Other skin disorders (1 source) Nail dystrophy; Translations: [NAIL DYSTROPHY] Onset: 05-25-20 Episodic Other skin disorders (5 sources) Corns and callosities; Translations: [CORNS AND CALLOSITIES] Onset: 05-03-20 Episodic Other skin disorders (17 sources) Foot callus; Translations: [Corns and callosities] Onset: 09-24-19 21 01-11-2023 Episodic Residual codes; unclassified (18 sources) History of cardiac catheterization; Translations: [Other specified postprocedural states] Onset: 05-13-20 Resolved : 01-14-20 23 05-13-2014 Episodic Residual codes; unclassified (20 sources) H/O: anticoagulant therapy; Translations: [Personal history of other drug therapy] Onset: 01-12-20 23 01-01-2019 Episodic Residual codes; unclassified (1 source) Pain, unspecified; Translations: [PAIN UNSPECIFIED] Onset: 01-20-20 Episodic Screening and history of mental health and substance abuse codes (17 sources) Ex-smoker; Translations: [Personal history of nicotine dependence] Onset: 07-13-19 18 01-11-2023 Episodic Skin and subcutaneous tissue infections (20 sources) Cellulitis and abscess of toe; Translations: [Cellulitis of right toe] Onset: 08-05-19 17 Resolved : 01-14-20 23 08-05-2016 Episodic Unclassified (3 sources) Patient encounter status; Translations: [Screening for colorectal cancer] Onset: 02-13-20 14 Resolved : 04-03-20 18 04-03-2018 Unclassified (1 source) CONTACT W/AND (SUSP) EXPOS COVID-19; Translations: [CONTACT W/AND (SUSP) EXPOS COVID-19] Onset: 01-19-20 Results Test Name Value Interpretation Reference Range Facility Ambulatory Visit Summaryon 1 06-23-2023 Ambulatory Visit Summary Ambulatory Visit Summary JUAN MIGUEL JENNINGS :1950 Visit Date:04/23/2024 Ambulatory Visit Instructions Your Diagnosis Hypogonadism Your Care Team Attending Physician - KERI NOLASCO, Topher Ordoñez Primary Care Physician - DAKOTA NOLASCO, JORDAN Brown This Is Your Medications List [facility] Prescription (METOPROLOL TARTRATE 100 MG TAB) aspirin (aspirin 81 mg oral tablet) brimonidine-brinzolam gail ophthalmic (Simbrinza) cyclobenzaprine (cyclobenzaprine 10 mg Tab) [...] next Scheduled Follow-Up Appointments Tuesday 9:00 AM EST With: Where: [facility] [address] [address]- Tuesday 10:45 AM EST With: KERI NOLASCO, Topher Ordoñez Where: [facility] [address] [address]- Medications What How Much When Instructions Unchanged aspirin (aspirin 81 mg oral tablet) By Mouth Every day Unchanged brimonidine-brinzolam gail ophthalmic (Simbrinza) Both eyes 2 times a [...] 0.4 mg Cap) 1 Capsules By Mouth 2 times a day Unchanged testosterone (testosterone cypionate 200 mg/ mL IM Richelle) 400 Milligram Intramuscular Every 4 weeks Medications and Immunizations Administered Given Depo-Testosterone 200 mg/mL intramuscular solution, 400 mg, IntraMuscular. For: Hypogonadism Allergies No Known Allergies Problems Ongoing - Any problem that you are currently receiving treatment for. BPH with urinary obstruction Coronary artery disease Diabetes Elevated PSA History of colon cancer Hx of jail use of blood thinners Hyperlipidemia Hypertension Hypogonadism [...] for choosing us for your care. Normal [facility] Ambulatory Visit Summaryon 1 Ambulatory Visit Summary Ambulatory Visit Summary JUAN MIGUEL JENNINGS :1950 Visit Date:03/27/2024 Ambulatory Visit Instructions Your Diagnosis Hypogonadism male Your Care Team Attending Physician - Topher STEVENSON MD Primary Care Physician - DAKOTA NOLASCO, JORDAN Brown This Is Your Medications List Misc Prescription (METOPROLOL TARTRATE 100 MG TAB) aspirin (aspirin 81 mg oral tablet) brimonidine-brinzolam gail ophthalmic (Simbrinza) cyclobenzaprine (cyclobenzaprine 10 mg Tab) [...] Scheduled Follow-Up Appointments Tuesday 9:30 AM EST With: Where: [facility] [address] [id number]- Tuesday 10:45 AM EST With: Topher STEVENSON MD Where: [facility] [address] [address]- Medications What How Much When Instructions Unchanged aspirin (aspirin 81 mg oral tablet) By Mouth Every day Unchanged brimonidine-brinzolam gail ophthalmic (Simbrinza) Both eyes 2 times a [...] 0.4 mg Cap) 1 Capsules By Mouth 2 times a day Unchanged testosterone (testosterone cypionate 200 mg/ mL IM Richelle) 400 Milligram Intramuscular Every 4 weeks Medications and Immunizations Administered Given Depo-Testosterone 200 mg/mL intramuscular solution, 400 mg, IntraMuscular. For: Hypogonadism male Allergies No Known Allergies Problems Ongoing - Any problem that you are currently receiving treatment for. 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 Normal [facility] CBC W/AUTO DIFFon 02-22-2024 ABS IMMATURE GRAN [...] on above: Result Comment: [facility] [address] [place] [address] CLIA No. [id number] CAP Accreditation No. [id number] Medical Appliance Maker: Shaunna Dee M.D. Platelets (Bld) [#/Vol] 128 10*3/uL Low 130-400 [facility] RBC (Bld) [#/Vol] 5.56 10*6/uL Normal 4.50-6.10 [facility] WBC (Bld) [#/Vol] 6.7 10*3/uL Normal 3.5-11.0 [facility] COMPREHENSIVE METABOLIC PANE L WITH GFRon 02-22-2024 Albumin [Mass/Vol] 4.8 g/dL Normal 3.5-5.2 [facility] ALK PHOS 82 U/L Normal 40-125 [facility] ALT [Catalytic activity/Vol] 26 U/L Normal 5-50 [facility] Anion gap [Moles/Vol] 10.0 mmol/L Normal 7.0-16.0 [facility] AST-SGOT 28 U/L Normal 9-50 [facility] Bilirubin.direct [Mass/Vol] 0.6 mg/dL Normal <=1.2 [facility] Calcium [Mass/Vol] 9.5 mg/dL Normal 8.5-10.5 [facility] Chloride [Moles/Vol] 104 mmol/L Normal 95-107 [facility] CO2 [Moles/Vol] 23 mmol/L Normal 19-31 [facility] Creatinine [Mass/Vol] 0.89 mg/dL Normal 0.80-1.40 [facility] GFR/1.73 sq M.predicted among non-blacks MDRD (S/P/Bld) [Vol rate/Area] 91 mL/min/{1.73_m2} Normal >60 [facility] Glucose [Mass/Vol] 138 mg/dL High 70-99 [facility] Potassium [Moles/Vol] 4.5 mmol/L Normal 3.5-5.4 [facility] Protein [Mass/Vol] 7.6 g/dL Normal 6.1-8.3 [facility] Sodium [Moles/Vol] 137 mmol/L Normal 133-146 [facility] Urea nitrogen [Mass/Vol] 18 mg/dL [...] TAB) aspirin (aspirin 81 mg oral tablet) brimonidine-brinzolam gail ophthalmic (Simbrinza) cyclobenzaprine (cyclobenzaprine 10 mg Tab) [...] 9:30 AM EDT Where: [place] [address]- Medications What How Much When Instructions Unchanged aspirin (aspirin 81 mg oral tablet) By Mouth Every day Unchanged brimonidine-brinzolam gail ophthalmic (Simbrinza) Both eyes 2 times a [...] PSA History of colon cancer Hx of jail use of blood thinners Hyperlipidemia Hypertension Hypogonadism [...] you for choosing us for your care. Armando Castillo [facility]rology Office/Clinic Noteon 12-05-2023 Urology Office/Clinic Note [...] Topher Ordoñez, URL [facility] [address] , [place] [address]- [phone] Additional Instructions: 6 mos w/ T level and Hgb Patient Education Hypogonadism, Male I, Erica Marin, personally scribed for Dr. Stevenson on 12/05/2023 11:40:12. . Documentation recorded by the scribe, Erica Marin, accurately reflects the services(s) I performed and decisions made by me. Authenticated by Dr. Stevenson on 12/05/2023 11:41:54. 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 Normal [facility] Comment on above: Result Comment: Elec tronically Signed By: Topher STEVENSON MD\.br\Date and Time Signed: 12/05/23 11:42 EDT\.br\Electronically Co-Signed By: Erica Marinbr\Date and Time Co-Signed: 12/05/23 11:40 EDT [facility] 11-22-2023 Lab Reports [id number] .00TIFF Normal [facility] 11-09-2023 Lab Reports [id number] .00TIFF Normal [facility] CBC W/AUTO DIFFon 10-25-2023 ABS IMMATURE [...] on above: Result Comment: [facility] [address] [address] CLIA No. [id number] CAP Accreditation No. [id number] Medical Appliance Maker: Shaunna Dee M.D. Platelets (Bld) [#/Vol] 141 10*3/uL Normal 130-400 [facility] RBC (Bld) [#/Vol] 5.28 10*6/uL Normal 4.50-6.10 [facility] WBC (Bld) [#/Vol] 7.2 10*3/uL Normal 3.5-11.0 [facility] COMPREHENSIVE METABOLIC PANE L WITH GFRon 10-25-2023 Albumin [Mass/Vol] 4.4 g/dL Normal 3.5-5.2 [facility] ALK PHOS 87 U/L Normal 40-125 [facility] ALT [Catalytic activity/Vol] 30 U/L Normal 5-50 [facility] Anion gap [Moles/Vol] 12.0 mmol/L Normal 7.0-16.0 [facility] AST-SGOT 27 U/L Normal 9-50 [facility] Bilirubin.direct [Mass/Vol] 0.6 mg/dL Normal <=1.2 [facility] Calcium [Mass/Vol] 9.6 mg/dL Normal 8.5-10.5 [facility] Chloride [Moles/Vol] 100 mmol/L Normal 95-107 [facility] CO2 [Moles/Vol] 27 mmol/L Normal 19-31 [facility] Creatinine [Mass/Vol] 0.91 mg/dL Normal 0.80-1.40 [facility] GFR/1.73 sq M.predicted among non-blacks MDRD (S/P/Bld) [Vol rate/Area] 90 mL/min/{1.73_m2} Normal >60 [facility] Glucose [Mass/Vol] 136 mg/dL High 70-99 [facility] Potassium [Moles/Vol] 4.1 mmol/L Normal 3.5-5.4 [facility] Protein [Mass/Vol] 7.2 g/dL Normal 6.1-8.3 [facility] Sodium [Moles/Vol] 139 mmol/L Normal 133-146 [facility] Urea nitrogen [Mass/Vol] 13 mg/dL [...] TAB) aspirin (aspirin 81 mg oral tablet) brimonidine-brinzolam gail ophthalmic (Simbrinza) cyclobenzaprine (cyclobenzaprine 10 mg Tab) [...] Tuesday 9:00 AM EDT Where: [facility] Ambulatory Visit Summaryon 0 09-09-2023 Ambulatory Visit Summary JUAN MIGUEL JENNINGS :1950 Visit Date:09/09/2023 Ambulatory Visit Instructions Your Diagnosis Hypogonadism Your Care Team Attending Physician - KERI NOLASCO, Topher Ordoñez Primary Care Physician - DAKOTA NOLASCO, JORDAN Brown This Is Your Medications List [facility] Prescription (METOPROLOL TARTRATE 100 MG TAB) aspirin (aspirin 81 mg oral tablet) brimonidine-brinzolam gail ophthalmic (Simbrinza) cyclobenzaprine (cyclobenzaprine 10 mg Tab) [...] Tuesday 8:30 AM EDT Where: [facility] 07-15-2023 Lab Reports [id number] .00TIFF [facility] 06-28-2023 Lab Reports [id number] .00TIFF Normal [facility] Ambulatory Visit Summaryon 0 06-20-2023 Ambulatory Visit Summary JUAN MIGUEL JENNINGS :1950 Visit Date:06/20/2023 Ambulatory Visit Instructions Your Diagnosis Hypogonadism male Elevated PSA BPH with urinary obstruction Phimosis Urinary urgency Tests Performed Urnls Dip Stick Auto w/o Microscopy POC 59[address] Your Care Team Attending Physician - KERI NOLASCO, Topher Ordoñez Primary Care Physician - DAKOTA NOLASCO, JORDAN Brown This Is Your Medications List oxybutynin (oxybutynin 5 mg ER Tab) tamsulosin (tamsulosin 0.4 mg Cap) testosterone (testosterone cypionate 200 mg/mL IM Richelle) Contact prescribing physician if questions or concerns Misc Prescription (METOPROLOL TARTRATE 100 MG TAB) aspirin (aspirin 81 mg oral tablet) brimonidine-brinzolam gail ophthalmic (Simbrinza) cyclobenzaprine (cyclobenzaprine 10 mg Tab) [...] 9:30 AM EST Where: [facility] Patient Educationon 06-20-19 24 Patient Education [...] Follow these instructions at home: ? Take veby-jqg-qyrbkiv and prescription medicines only as told by [...] 01/22/2021 Document (more content not included)... 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 Normal [facility] Comment on above: Result Comment: Elec tronically Signed By: Topher STEVENSON MD\.br\Date and Time Signed: 06/20/23 11:28 EST\.br\Electronically Co-Signed By: Erica Marin\.br\Date and Time Co-Signed: 06/20/23 11:26 EST [facility] 05-31-2023 Lab Reports [id number] .00TIFF Normal [facility] CBC W/AUTO DIFFon 04-26-2023 ABS NEUTROPHILS [...] Inc Comment on above: Result Comment: [facility] [address] [place] [address] CLIA No. [id number] CAP Accreditation No. [id number] Medical Appliance Maker: Shaunna Dee M.D. Platelets (Bld) [#/Vol] 125 10*3/uL Low 130-400 [facility] RBC (Bld) [#/Vol] 5.17 10*6/uL Normal 4.50-6.10 [facility] WBC (Bld) [#/Vol] 5.9 10*3/uL Normal 3.5-11.0 [facility] COMPREHENSIVE METABOLIC PANE L WITH GFRon 04-26-2023 Albumin [Mass/Vol] 4.8 g/dL Normal 3.5-5.2 [facility] ALK PHOS 74 U/L Normal 40-125 [facility] ALT [Catalytic activity/Vol] 23 U/L Normal 5-50 [facility] Anion gap [Moles/Vol] 11.0 mmol/L Normal 7.0-16.0 [facility] AST-SGOT 25 U/L Normal 9-50 [facility] Bilirubin.direct [Mass/Vol] 0.7 mg/dL Normal <=1.2 [facility] Calcium [Mass/Vol] 9.4 mg/dL Normal 8.5-10.5 [facility] Chloride [Moles/Vol] 102 mmol/L Normal 95-107 [facility] CO2 [Moles/Vol] 25 mmol/L Normal 19-31 [facility] Creatinine [Mass/Vol] 0.80 mg/dL Normal 0.80-1.40 [facility] GFR/1.73 sq M.predicted among non-blacks MDRD (S/P/Bld) [Vol rate/Area] 95 mL/min/{1.73_m2} Normal >60 [facility] Glucose [Mass/Vol] 148 mg/dL High 70-99 [facility] Potassium [Moles/Vol] 4.4 mmol/L Normal 3.5-5.4 [facility] Protein [Mass/Vol] 7.0 g/dL Normal 6.1-8.3 [facility] Sodium [Moles/Vol] 138 mmol/L Normal 133-146 [facility] Urea nitrogen [Mass/Vol] 16 mg/dL Normal 8-23 [facility] Office Visiton 04-08-2023 Follow-up visit [id number] Juan Miguel Jennings 1950 M Date Provider Department Center 04/08/2023 ANUJA ARMSTRONG [facility] Family History Problem Relation Age of Onset Heart disease Mother Heart disease Father Family Status - Relation Status Age at Mother Father Level of Service:[address] [place] OFFICE/OUTPATIENT ESTABLISHED MOD MDM 30-39 MIN Normal [facility] POINT OF CARE GLUCOSEon - Glucose [Mass/Vol] 112 mg/dL Critically high 74-106 T he [facility] Comment on above: Performed By: #### P OCGLUC #### [facility] [address] [address] [address] Patria Sanders CBC AUTO DIFFon 09-15-2022 BASO # 0.0 103/ul Normal 0.0-0.1 [facility] Comment on above: Performed By: #### C BC #### [facility] [address] [address] [address] Patria Sanders Basophils/100 WBC (Bld) 0.5 % Normal 0.2-2.0 The [facility] Comment on above: Performed By: #### C BC #### [facility] [address] [address] [address] Patria Sanders EO # 0.3 103/ul Normal 0.0-0.7 [facility] Comment on above: Performed By: #### C BC #### [facility] [address] [place] [address] Dr. Patria Sanders Eosinophils/100 WBC (Bld) 3.2 % Normal 0.9-7.0 [facility] Comment on above: Performed By: #### C BC #### [facility] [address] [place] [address] Dr. Patria Sanders Erythrocyte distribution width (RBC) [Ratio] 14.5 % Normal 11.0-15.0 [facility] Comment on above: Performed By: #### C BC #### [facility] [address] [place] [address] Dr. Patria Sanders Hematocrit (Bld) [Volume fraction] 49.0 % Normal 42.0-54.0 [facility] Comment on above: Performed By: #### C BC #### [facility] [address] [place] [address] Dr. Patria Sanders Hemoglobin (Bld) [Mass/Vol] 16.7 g/dL Normal 14.0-18.0 [facility] Comment on above: Performed By: #### C BC #### [facility] [address] [place] [address] Dr. Patria Sanders IG # 0.03 10e3/ul Normal 0.00-0.03 [facility] Comment on above: Performed By: #### C BC #### [facility] [address] [place] [address] Dr. Patria Sanders IG % 0.4 % Normal 0.0-0.5 [facility] Comment on above: Performed By: #### C BC #### [facility] [address] [place] [address] Dr. Patria Sanders LYMPH # 1.1 103/ul Critically low 1.2-3.8 [facility] Comment on above: Performed By: #### C BC #### [facility] [address] [place] [address] Dr. Patria Sanders Lymphocytes/100 WBC (Bld) 14.5 % Critically low 20.5-60.0 [facility] Comment on above: Performed By: #### C BC #### [facility] [address] [place] [address] Dr. Patria Sanders MANUAL DIFF REQ NO Normal [facility] Comment on above: Performed By: #### C BC #### [facility] [address] [place] [address] Dr. Patria Sanders MCH (RBC) [Entitic mass] 32.6 pg Normal 25.9-34.0 [facility] Comment on above: Performed By: #### C BC #### [facility] [address] [place] [address] Dr. Patria Sanders MCHC (RBC) [Mass/Vol] 34.1 g/dL Normal 29.9-35.2 [facility] Comment on above: Performed By: #### C BC #### [facility] [address] [place] [address] Dr. Patria Sanders MCV (RBC) [Entitic vol] 95.5 fL Critically high 80.0-94.0 [facility] Comment on above: Performed By: #### C BC #### [facility] [address] [place] [address] Dr. Patria Sanders MONO # 0.8 103/ul Normal 0.3-0.8 The [facility] Comment on above: Performed By: #### C BC #### [facility] [address] [place] [address] Dr. Patria Sanders Monocytes/100 WBC (Bld) 9.6 % Normal 1.7-12.0 [facility] Comment on above: Performed By: #### C BC #### [facility] [address] [place] [address] Dr. Patria Sanders NEUT # 5.6 103/ul Normal 1.4-6.5 [facility] Comment on above: Performed By: #### C BC #### [facility] [address] [place] [address] Dr. Patria Sanders Neutrophils/100 WBC (Bld) 71.8 % Normal 43.0-75.0 [facility] Comment on above: Performed By: #### C BC #### [facility] [address] [place] [address] Dr. Patria Sanders Platelet mean volume (Bld) [Entitic vol] 11.6 fL Normal 9.5-13.5 [facility] Comment on above: Performed By: #### C BC #### [facility] [address] [place] [address] Dr. Patria Sanders PLT 154 103/ul Normal 150-450 [facility] Comment on above: Performed By: #### C BC #### [facility] [address] [place] [address] Dr. Patria Sanders RBC 5.13 106/ul Normal 4.70-6.10 [facility] Comment on above: Performed By: #### C BC #### [facility] [address] [place] [address] Dr. Patria Sanders WBC 7.8 103/ul Normal 4.0-11.0 [facility] Comment on above: Performed By: #### C BC #### [facility] [address] [place] [address] Dr. Patria Sanders PROF CHEM 8 (BAS METB)on Anion gap [Moles/Vol] 11.4 mmol/L Normal [facility] Comment on above: Performed By: #### B MP #### [facility] [address] [place] [address] Dr. Patria Sanders Calcium [Mass/Vol] 9.1 mg/dL Normal 8.5-10.1 [facility] Comment on above: Performed By: #### B MP #### [facility] [address] [place] [address] Dr. Patria Sanders Chloride [Moles/Vol] 104 mmol/L Normal 98-107 [facility] Comment on above: Performed By: #### B MP #### [facility] [address] [address] [address] Patria Sanders CO2 [Moles/Vol] 28.7 mmol/L Normal 21.0-32.0 [facility] Comment on above: Performed By: #### B MP #### [facility] [address] [address] [address] Patria Sanders Creatinine [Mass/Vol] 0.80 mg/dL Normal 0.70-1.30 [facility] Comment on above: Performed By: #### B MP #### [facility] [address] [place] [address] Dr. Patria Sanders EGFR-AF SWAZI >60 Normal >=[address] [facility] Comment on above: Performed By: #### B MP #### [facility] [address] [place] [address] Dr. Patria Sanders EGFR-NON AF SWAZI >60 Normal >=60 [facility] Comment on above: Performed By: #### B MP #### [facility] [address] [address] [address] Patria Sanders Glucose [Mass/Vol] 101 mg/dL Normal 74-106 [facility] Comment on above: Performed By: #### B MP #### [facility] [address] [address] [address] Patria Sanders Potassium [Moles/Vol] 4.1 mmol/L Normal 3.5-5.1 [facility] Comment on above: Performed By: #### B MP #### [facility] [address] [address] [address] Patria Sanders Sodium [Moles/Vol] 140 mmol/L Normal 136-145 [facility] Comment on above: Performed By: #### B MP #### [facility] [address] [place] [id number] Dr. Patria Sanders Urea nitrogen [Mass/Vol] 11.0 mg/dL Normal 7.0-18.0 [facility] Comment on above: Performed By: #### B MP #### [facility] [address] [place] [address] Dr. Patria Sanders Urea nitrogen/Creatinine [Mass ratio] 13.8 mg/mg Normal [facility] Comment on above: Performed By: #### B MP #### [facility] [address] [place] [address] Dr. Patria Sanders PROTIMEon 09-15-2022 INR Coag (PPP) [Relative time] 1.02 {INR} Normal [facility] Comment on above: Performed By: #### P TT, PT #### [facility] [address] [place] [address] Dr. Patria Sanders INR GUIDELINES SEE BELOW Normal [facility] Comment on above: Result Comment: SANTO RED INR: 2.0 - 3.0 CONDITIONS NOT LISTED BELOW 2.5 - 3.5 FOR PROSTHETIC HEART VALVE REPLACEMENT 2.5 - 3.5 RECURRENT THROMBOSIS Performed By: #### P TT, PT #### [facility] [address] [place] [address] Dr. Patria Sanders PT Coag (PPP) [Time] 10.8 s Normal 9.0-11.6 [facility] Comment on above: Performed By: #### P TT, PT #### [facility] [address] [place] [address] Dr. Patria Sanders PTTon 09-15-2022 aPTT Coag (Bld) [Time] 32.0 s Normal 22.3-36.2 [facility] Comment on above: Performed By: #### P TT, PT #### [facility] [address] [place] [address] Dr. Patria Sanders Covid-19 PCR (CVDTB)on 01-04 SARS-CoV-2 (COVID-19) RNA NANCY+probe Ql (Unsp spec) Not detected Normal NOT DETECTED [facility] Comment on above: Result Comment: This test is not yet approved or cleared by the [place] FDA. When there are no FDA-approved or cleared tests available, and other criteria are met, FDA can make tests available under an emergency access mechanism called an Emergency Use Authorization (EUA). The EUA for this test is supported by the Electronic Assembler of Health and Human Service's (HHS's) declaration [...] consistent with SARS-CoV-2. Performed By: #### [facility] #### [facility] [address] [place], [place] [address] Dr. Patria Sanders Hemoglobin A1Con 09-24-2021 EAG 128.37 Normal [facility] Comment on above: Performed By: #### A 1C #### [facility] [address] [place], [place] [id number] HbA1c (Bld) [Mass fraction] 6.1 % High 4.0-6.0 [facility] Comment on above: Performed By: #### A 1C #### [facility] [address] [place], [place] [id number] Testosteroneon 05-11-2021 TESTOS 314.70 ng/dL Normal 193.00-740.00 [facility] Comment on above: Performed By: #### T EST #### [facility] [address] [place], [place] [id number] XR femur BIon 05-06-2021 XR femur BI [facility] [place] [address] [place] [address] XRay Report Signed Patient: Juan Miguel Jennings MR#: [id number] 25 : 1950 Acct:[id number] Age/Sex: 71 / M ADM Date: 05/06/21 Loc: ICXD Room: Type: [facility] Attending Dr: Maxwell Staley PA-C Ordering Provider: Maxwell Staley PA-C Date of Service: 05/06/21 XR/XR chest 2V*: Z01.818 ([id number]) XR/XR femur BI: Z01.818 ([id number]) XR/XR tibia/fibula BI: . Copies to: Maxwell [...] Rosanne Echeverria M.D.05/06/2021 3:12 PM Dictation Location: [place] [address] Transcribed By: [facility] 05/06/21 1512 Dictated By: Rosanne Echeverria MD 05/06/21 1506 Signed By: 05/06/21 1512 [facility] Progress Noteon 10-12-2017 HIM IP Note OR Cadastral Engineer [facility] Vital Signs Date Time Vital Sign Value Performing Clinician Facility 04-23-2024 10:41-0500 Body height 198.1 cm Brody Ibrahim DPM Work Phone: [facility] 04-23-2024 10:41-0500 Body mass index (BMI) [Ratio] 40.45 kg/m2 Brody Ibrahim DPM Work Phone: [facility] 04-23-2024 10:41-0500 Body weight 158.76 kg Brody Ibrahim DPM Work Phone: [facility] 03-29-2024 12:49-0400 Body height 198.1 cm Brody Ibrahim DPM Work Phone: [facility] 03-29-2024 12:49-0400 Body mass index (BMI) [Ratio] 40.45 kg/m2 Brody Ibrahim DPM Work Phone: [facility] 03-29-2024 12:49-0400 Body weight 158.76 kg Brody Ibrahim DPM Work Phone: [facility] 03-27-2024 14:00-0400 Body height 198.1 cm Jordan Duncan MD Work Phone: [facility] 03-27-2024 14:00-0400 Body mass index (BMI) [Ratio] 40.45 kg/m2 Jordan Duncan MD Work Phone: [facility] 03-27-2024 14:00-0400 Body weight 158.76 kg Jordan Duncan MD Work Phone: [facility] 03-27-2024 14:00-0400 Diastolic blood pressure 76 mm[Hg] Jordan Duncan MD Work Phone: [facility] 03-27-2024 14:00-0400 Heart rate 71 /min Jordan uDncan MD Work Phone: [facility] 03-27-2024 14:00-0400 SaO2% (BldA) [Mass fraction] 97 % Jordan Duncan MD Work Phone: [facility] 03-27-2024 14:00-0400 Systolic blood pressure 128 mm[Hg] Jordan Duncan MD Work Phone: [facility] 03-13-2024 09:41-0400 Body height 198.1 cm Brody Ibrahim DPM Work Phone: [facility] 03-13-2024 09:41-0400 Body mass index (BMI) [Ratio] 40.45 kg/m2 Brody GUTIÉRREZM Work Phone: [facility] 03-13-2024 09:41-0400 Body weight 158.76 kg Brody GUTIÉRREZM Work Phone: [facility] 12-05-2023 10:38-0400 Blood Pressure Location Topherpeter STEVENSON [facility] [place] 12-05-2023 10:38-0400 Body temperature 98.6 [degF] Topherpeter STEVENSON [facility] [place] 12-05-2023 10:38-0400 Diastolic blood pressure 86 mm[Hg] Topher STEVENSON [facility] [place] 12-05-2023 10:38-0400 Heart rate 69 /min Topher STEVENSON [facility] [place] 12-05-2023 10:38-0400 Respiratory rate 16 /min Topher STEVENSON [facility] [place] 12-05-2023 10:38-0400 Systolic blood pressure 136 mm[Hg] Topher STEVENSON [facility] [place] 07-19-2023 10:37-0500 Body height 198.1 cm Brody GUTIÉRREZM Work Phone: [facility] 07-19-2023 10:37-0500 Body mass index (BMI) [Ratio] 39.87 kg/m2 Brody GUTIÉRREZM Work Phone: [facility] 07-19-2023 10:37-0500 Body weight 156.49 kg Brody Ibrahim DPM Work Phone: [facility] 06-20-2023 10:33-0500 Blood Pressure Location Topher STEVENSON [facility] [place] 06-20-2023 10:33-0500 Diastolic blood pressure 86 mm[Hg] Topher STEVENSON [facility] [place] 06-20-2023 10:33-0500 Heart rate 70 /min Topher STEVENSON [facility] [place] 06-20-2023 10:33-0500 Respiratory rate 16 /min Topher STEVENSON [facility] [place] 06-20-2023 10:33-0500 Systolic blood pressure 139 mm[Hg] Topher STEVENSON [facility] [place] 11-05-2022 10:12-0400 Blood Pressure Location Topher STEVENSON [facility] [place] 11-05-2022 10:12-0400 Diastolic blood pressure 78 mm[Hg] Topher STEVENSON [facility] [place] 11-05-2022 10:12-0400 Heart rate 68 /min Topher STEVENSON [facility] [place] 11-05-2022 10:12-0400 Respiratory rate 16 /min Topher STEVENSON [facility] [place] 11-05-2022 10:12-0400 Systolic blood pressure 130 mm[Hg] Topher STEVENSON [facility] [place] 11-03-2022 14:34-0400 Body temperature 97.5 [degF] [facility] Schedule [facility] 11-03-2022 14:34-0400 Diastolic blood pressure 77 mm[Hg] [facility] Schedule [facility] 11-03-2022 14:34-0400 Heart rate 72 /min [facility] 11-03-2022 14:34-0400 Respiratory rate 18 /min [facility] Schedule [facility] 11-03-2022 14:34-0400 Systolic blood pressure 140 mm[Hg] Mth[facility] Schedule [facility] 06-18-2022 08:55-0500 Blood Pressure Location Topherpeter STEVENSON [facility] [place] 06-18-2022 08:55-0500 Diastolic blood pressure 82 mm[Hg] Topher STEVENSON [facility] [place] 06-18-2022 08:55-0500 Heart rate 80 /min Topher STEVENSON [facility] [place] 06-18-2022 08:55-0500 Respiratory rate 16 /min Topher STEVENSON [facility] [place] 06-18-2022 08:55-0500 Systolic blood pressure 132 mm[Hg] Topher STEVENSON [facility] [place] 05-17-2022 09:43-0500 Blood Pressure Location Topher STEVENSON [facility] [place] 05-17-2022 09:43-0500 Diastolic blood pressure 92 mm[Hg] Topher STEVENSON [facility] [place] 05-17-2022 09:43-0500 Heart rate 63 /min Topher STEVENSON [facility] [place] 05-17-2022 09:43-0500 Systolic blood pressure 143 mm[Hg] Topher STEVENSON [facility] [place] 02-01-2022 09:48-0400 Blood Pressure Location Topher STEVENSON [facility] [place] 02-01-2022 09:48-0400 Diastolic blood pressure 66 mm[Hg] Topher STEVENSON [facility] [place] 02-01-2022 09:48-0400 Heart rate 84 /min Topher STEVENSON [facility] [place] 02-01-2022 09:48-0400 Respiratory rate 16 /min Topher STEVENSON [facility] [place] 02-01-2022 09:48-0400 Systolic blood pressure 98 mm[Hg] Topher STEVENSON [facility] [place] 01-28-2022 13:48-0400 Diastolic blood pressure 76 mm[Hg] [facility] 01-28-2022 13:48-0400 Heart rate 56 /min [facility] Lab Schedule [facility] 01-28-2022 13:48-0400 Respiratory rate 18 /min [facility] Lab Schedule [facility] 01-28-2022 13:48-0400 Systolic blood pressure 135 mm[Hg] [facility] Lab Schedule [facility] 01-28-2022 13:25-0400 Body temperature 97.39 [degF] [facility] Lab Schedule [facility] 10-22-2020 12:25-0400 Body temperature 97.81 [degF] [facility] Schedule [employer] Work Phone: 10-22-2020 12:25-0400 Heart rate 67 /min [facility] Schedule [employer] Work Phone: 07-27-2019 08:03-0500 Body Temperature 96.3 [degF] [facility] [place] 07-27-2019 08:03-0500 BP Diastolic 80 mm[Hg] [facility] Schedule [facility] [place] 07-27-2019 08:03-0500 BP Systolic 129 mm[Hg] [facility] Schedule [facility] [place] 07-27-2019 08:03-0500 Pulse (Heart Rate) 63 /min [facility] Schedule [facility] 07-27-2019 08:03-0500 Respiratory Rate 20 /min [facility] [place] 03-13-2019 08:02-0400 Body Temperature 96.69 [degF] [facility] [place] 03-13-2019 08:02-0400 BP Diastolic 83 mm[Hg] [facility] Schedule [facility] [place] 03-13-2019 08:02-0400 BP Systolic 162 mm[Hg] [facility] Schedule [facility] [place] 03-13-2019 08:02-0400 Pulse (Heart Rate) 74 /min [facility] Schedule [facility] 03-13-2019 08:02-0400 Respiratory Rate 20 /min [facility] Schedule [facility] [place] 01-12-2019 08:03-0400 Body Temperature 96.91 [degF] [facility] Schedule [facility] [place] 01-12-2019 08:03-0400 BP Diastolic 87 mm[Hg] [facility] Schedule [facility] , [place] 01-12-2019 08:03-0400 BP Systolic 152 mm[Hg] [facility]th[facility] Schedule [place], [place] 01-12-2019 08:03-0400 Pulse (Heart Rate) 63 /min [facility] Schedule [facility] 01-12-2019 08:03-0400 Respiratory Rate 20 /min [facility] [place] Encounters Encounter Date Encounter Type Care Provider Facility Start: 05-21-2024 ambulatory Topher Duff ty:DEBBIE Siegel Start: 05-08-2024 ambulatory Topher Duff ty:DEBBIE Siegel Start: 04-23-2024 End: 04-23-2024 Navneeto flowstony Ibrahim DPArin Work Phone: [facility] Start: 04-23-2024 End: 04-23-2024 Bamboo flowsheet Brody Ibrahim DPM Work Phone: [facility] Start: 04-23-2024 End: 04-23-2024 ambulatory BRODY IBRAHIM Not Available Start: 04-23-2024 End: 04-23-2024 Patient encounter procedure Topher Ordoñez KERI [facility] [place] Comment on above: Diabetic polyneuropa thy associated with type 2 diabetes mellitus (CMS/HCC) (Primary Dx); Nontraumatic amputation of foot, left (CMS/HCC); Nontraumatic amputation of foot, right (CMS/HCC) Start: 04-09-2024 End: 04-09-2024 Telephone encounter Brody Ibrahim DPM Work Phone: [facility] Comment on above: Advice Only (orthoti cs) Start: 03-29-2024 End: 03-29-2024 Bamboo flowsheet Brody Ibrahim DPM Work Phone: [facility] Start: 03-29-2024 End: 03-29-2024 Bamboo flowsheet Brody Ibrahim DPM Work Phone: [facility] Start: 03-29-2024 End: 03-29-2024 Postop follow up visit related to original px Brody Ibrahim DPM Work Phone: [facility] Comment on above: Diabetic polyneuropa thy associated with type 2 diabetes mellitus (CMS/HCC) (Primary Dx); Nontraumatic amputation of foot, left (CMS/HCC); Nontraumatic amputation of foot, right (CMS/HCC) Start: 03-29-2024 End: 03-29-2024 ambulatory BRODY IBRAHIM Not Available Start: 03-27-2024 End: 03-27-2024 Bamboo flowsheet Jordan Duncan MD Work Phone: [facility] Start: 03-27-2024 End: 03-27-2024 Bamboo flowsheet Jordan Duncan MD Work Phone: [facility] Start: 03-27-2024 End: 03-27-2024 Office outpatient visit 25 minutes Jordan Duncan MD Work Phone: [facility] Comment on above: Type 2 diabetes amelie itus with diabetic polyneuropathy, without long-term current use of insulin (CMS/HCC) (Primary Dx); Acquired hallux malleus of left foot; Acquired hammer toes of both feet; Foot callus; 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); Partial nontraumatic amputation of foot, left (CMS/HCC); Venous stasis dermatitis of both lower extremities; Type 2 diabetes mellitus with diabetic microalbuminuria, without long-term current use of insulin (CMS/HCC); Microalbuminuria; Essential hypertension (CMS/HCC); Mixed hyperlipidemia ([facility]); Adverse reaction to statin medication; Former smoker; Morbid obesity ([facility]/HCC) Start: 03-27-2024 End: 03-27-2024 ambulatory JORDAN DUNCAN Not Available Start: 03-27-2024 End: 03-27-2024 ambulatory Topher STEVENSON Facility:[facility] Start: 03-27-2024 End: 03-27-2024 Patient encounter procedure Topher STEVENSON [facility] [place] Start: 03-13-2024 End: 03-13-2024 Bamboo flowsheet Brody Ibrahim DPM Work Phone: [facility] Start: 03-13-2024 End: 03-13-2024 Bamboo flowsheet Brody Ibrahim DPM Work Phone: [facility] Start: 03-13-2024 End: 03-13-2024 Patient encounter procedure Brody Ibrahim DPM Work Phone: [facility] Comment on above: Acquired keratoderma (Primary Dx); Diabetic polyneuropathy associated with type 2 diabetes mellitus (CMS/HCC); Nontraumatic amputation of foot, left (CMS/HCC); Nontraumatic amputation of foot, right (CMS/HCC) Start: 03-13-2024 End: 03-13-2024 ambulatory BRODY A RUSHER Not Available Start: 02-27-2024 End: 02-27-2024 ambulatory Topher STEVENSON Facility:[facility] Start: 02-27-2024 End: 02-27-2024 Patient encounter procedure [facility]EN[facility] Start: 01-31-2024 End: 01-31-2024 ambulatory Fernanda X Orzech Facility:[facility] Start: 01-31-2024 End: 01-31-2024 Patient encounter procedure Fernanda X Orzech [facility] Start: 01-10-2024 End: 01-10-2024 ambulatory BRODY A EVANGELIST Not Available Start: 01-03-2024 End: 01-03-2024 ambulatory Topher STEVENSON Facility:[facility] Start: 12-06-2023 End: 12-06-2023 ambulatory BRODY A EVANGELIST Not Available Start: 12-05-2023 End: 12-05-2023 ambulatory Topher STEVENSON Facility:[facility] Start: 12-05-2023 End: 12-05-2023 Patient encounter procedure Topher STEVENSON [facility] Start: 11-09-2023 End: 11-09-2023 ambulatory [facility] Smit[facility] Start: 11-07-2023 End: 11-07-2023 ambulatory Topher STEVENSON Facility:[facility] Start: 11-07-2023 End: 11-07-2023 Patient encounter procedure Topher STEVENSON [facility] Start: 10-27-2023 End: 10-27-2023 ambulatory JORDAN DUNCAN Not Available Start: 10-12-2023 End: 10-12-2023 ambulatory JORDAN DUNCAN Not Available Start: 10-07-2023 End: 10-07-2023 ambulatory Topher R KERI Facility: [facility] Start: 10-07-2023 End: 10-07-2023 Patient encounter procedure [facility] R [facility]ERI [facility] Start: 09-27-2023 End: 09-27-2023 ambulatory BRODY IBRAHIM Not Available Start: 09-09-2023 End: 09-09-2023 ambulatory Topher Smita KERI Facility: [facility] Start: 09-09-2023 End: 09-09-2023 Patient encounter procedure Topher R KERI [facility] Start: 08-15-2023 End: 08-15-2023 ambulatory Topher R KERI Facility: [facility] Start: 08-15-2023 End: 08-15-2023 Patient encounter procedure Topher STEVENSON [facility] Start: 07-19-2023 Bamboo flowsheet Brody Tyler er DPM Work Phone: [facility] Start: 07-19-2023 Bamboo flowsheet Brody Tyler er DPM Work Phone: [facility] Start: 07-19-2023 End: 07-19-2023 ambulatory BRODY IBRAHIM Not Available Start: 07-19-2023 End: 07-19-2023 Patient encounter procedure Brody Ibrahim DPM Work Phone: [facility] Comment on above: Dermatophytosis of n ail (Primary Dx); Dystrophic nail; Diabetic polyneuropathy associated with type 2 diabetes mellitus (CMS/HCC); Nontraumatic amputation of foot, right (CMS/HCC); Nontraumatic amputation of foot, left (CMS/HCC); Acquired keratoderma Start: 07-18-2023 End: 07-18-2023 ambulatory Topher STEVENSON Facility:[facility] Start: 07-18-2023 End: 07-18-2023 Patient encounter procedure Topher STEVENSON [facility] [place] Start: 06-20-2023 End: 06-20-2023 ambulatory Topher STEVENSON Facility:[facility] Start: 06-20-2023 End: 06-20-2023 Patient encounter procedure Topher STEVENSON [facility] [place] Start: 05-17-2023 End: 05-17-2023 ambulatory JORDAN DUNCAN Not Available Start: 05-12-2023 End: 05-12-2023 ambulatory [facility] Start: 05-09-2023 End: 05-09-2023 ambulatory Topher STEVENSON Facility:[facility] Start: 05-09-2023 End: 05-09-2023 Patient encounter procedure Topher STEVENSON [facility] [place] Start: 04-08-2023 End: 04-08-2023 ambulatory [facility] Start: 04-04-2023 End: 04-04-2023 Patient encounter procedure Topher STEVENSON [facility] [place] Start: 02-08-2023 End: 02-08-2023 Patient encounter procedure JORDAN DUNCAN [facility] [place] Start: 01-03-2023 End: 01-03-2023 Patient encounter procedure Topher STEVENSON [facility] [place] Start: 12-03-2022 End: 12-03-2022 Patient encounter procedure Topher STEVENSON [facility] [place] Start: 11-05-2022 End: 11-05-2022 Patient encounter procedure Topher STEVENSON [facility] [place] Start: 11-03-2022 End: 11-03-2022 Subsequent hospital visit by physician [facility] Room 7 Schedule [facility] Comment on above: Polycythemia (Primar y Dx) Start: 10-25-2022 End: 10-26-2022 ambulatory ARNOLD PEOPLES Facility:[facility] Start: 10-05-2022 End: 10-06-[address] JORDAN DUNCAN . Facility:[facility] Start: 10-05-2022 End: 10-05-2022 Patient encounter procedure Topher STEVENSON [facility] [place] Start: 09-30-2022 End: 09-30-[address] TOPHER STEVENSON . Facility:[facility] Start: 09-27-2022 End: 09-28-2022 ambulatory ARNOLD PEOPLES Facility:[facility] Start: 09-20-2022 End: 09-21-2022 ambulatory ENEDINA BOSS Facility:[facility] Start: 09-20-2022 Encounter for preprocedural cardiovascular examination DR TOPHER TSEVENSON . [facility] Start: 09-20-2022 Encounter for preprocedural laboratory examination DR TOPHER STEVENSON . [facility] Start: 09-20-2022 Encounter for preprocedural respiratory examination DR TOPHER STEVENSON . [facility] Start: 09-15-2022 End: 09-16-[address] TOPHER STEVENSON . Facility:[facility] Start: 09-15-2022 End: 09-16-2022 Encounter for preprocedural laboratory examination DR TOPHER STEVENSON . Facility:[facility] Start: 09-06-2022 End: 09-06-2022 Patient encounter procedure Topher STEVENSON [facility] [place] Start: 06-18-2022 End: 06-18-2022 Patient encounter procedure Topher STEVENSON [facility] [place] Start: 05-20-2022 End: 05-21-2022 ambulatory [facility] Facility:[facility] Start: 05-17-2022 End: 05-17-2022 Patient encounter procedure Topher STEVENSON [facility] [place] Start: 04-21-2022 End: 04-22-2022 ambulatory [facility] Facility:[facility] Start: 04-21-2022 End: 04-21-2022 Patient encounter procedure Mandy Schaefer [facility] [place] [facility] Start: 04-09-2022 End: 04-10-2022 [facility] Facility:[facility] Start: 03-31-2022 End: 03-31-2022 Patient encounter procedure Mandy Schaefer [facility] [place] [facility] Start: 03-22-2022 End: 03-23-2022 ambulatory [facility] Facility:[facility] Start: 03-03-2022 End: 03-03-2022 Patient encounter procedure Mandy Schaefer [facility] [place] Start: 02-01-2022 End: 02-01-2022 Patient encounter procedure Topher STEVENSON [facility] Start: 01-28-2022 End: 01-28-2022 Subsequent hospital visit by physician [facility] Comment on above: Polycythemia (Primar y Dx) Start: 01-18-2022 End: 01-18-[address] JORDAN DUNCAN . Facility:[facility] Start: 01-06-2022 End: 01-07-2022 ambulatory ENEDINA Schultz [facility] Facility:[facility] Start: 12-21-2021 End: 12-21-2021 Patient encounter procedure Topher STEVENSON [facility] Start: 11-23-2021 End: 11-23-2021 Patient encounter procedure Topher STEVENSON [facility] Start: 10-26-2021 End: 10-26-2021 Patient encounter procedure Topher STEVENSON [facility] Start: 09-28-2021 End: 09-28-2021 Patient encounter procedure Topher STEVENSON [facility] Start: 08-31-2021 End: 08-31-2021 Patient encounter procedure Topher STEVENSON [facility] Start: 10-22-2020 End: 10-22-2020 Subsequent hospital visit by physician [facility] Comment on above: Polycythemia (Primar y Dx) Start: 07-27-2019 End: 07-27-2019 Subsequent hospital visit by physician [facility] On[facility] Room 9 Schedule [facility] Comment on above: Polycythemia (Primar y Dx) Start: 03-13-2019 End: 03-13-2019 Subsequent hospital visit by physician [facility] Med Onc Room 9 Schedule [facility] Comment on above: Polycythemia (Primar y Dx) Start: 01-12-2019 End: 01-12-2019 Subsequent hospital visit by physician [facility] Med Onc Room 9 Schedule [facility] Start: 02-16-2018 End: 02-17-2018 Patient encounter DEFAULT PHYSICIAN Facility:[facility] Procedures Date Procedure Procedure Detail Performing Clinician Start: 09-30-2022 Circumcision Topher JENSEN Start: 12-17-2020 Colonoscopy Brody pelayo DPM Work Phone: Start: 05-23-2019 foot surgery Topherpeter JENSEN Start: 05-13-2014 History of placement of stent for coronary artery disease S/P JORY - LCX & RCA ([id number]. kabour) [facility] Schedule BACK SURGERY Topher STEVENSON Placement of stent Topher OSEGUERA RECTAL CANCER SURGERY Agustin STEVENSON RIGHT VEIN REMOVED F ROM LEG Topher STEVENSON Plan of Treatment Date Care Activity Detail Author Start: 12-17-2030 Screening for malignant neoplasm of colon [facility] Start: 09-29-2025 Glaucoma screening Diabetes: Retinopathy Screening [facility] Start: 10-04-2024 Urine screening for protein Diabetes: Urine Protein Screening [facility] Start: 09-18-2024 End: 09-18-2024 Patient encounter procedure [facility] CI FM 100 Start: 08-25-2024 End: 03-27-2025 Comprehensive metabolic 2000 panel - Serum or Plasma Comprehensive metabolic panel Lab Routine Type 2 diabetes mellitus with diabetic polyneuropathy, without long-term current use of insulin (CMS/HCC) Essential hypertension (CMS/HCC) Expected: 08/25/2024, Expires: 03/27/2025 [facility] Work Phone: Comment on above: Expected: 08/25/2024, Expires: Start: 08-25-2024 End: 03-27-2025 Hemoglobin A1c/Hemoglobin.total in Blood Hemoglobin A1c Lab Routine Type 2 diabetes mellitus with diabetic polyneuropathy, without long-term current use of insulin ([facility]) Expected: 08/25/2024, Expires: 03/27/2025 [facility] Comment on above: Expected: 08/25/2024, Expires: Start: 08-25-2024 End: 03-27-2025 Lipid 1996 panel - Serum or Plasma Lipid panel Lab Routine Mixed hyperlipidemia ([facility]) Expected: 08/25/2024, Expires: 03/27/2025 [facility] Healthcare Comment on above: Expected: 08/25/2024, Expires: Start: 06-21-2024 Hemoglobin A1c measurement Diabetes: Hemoglobin A1C [facility] Start: 05-17-2024 Medicare Annual Wellness (AWV) Medicare Annual Wellness (AWV) [facility] Healthcare Start: 05-15-2024 End: 05-15-2024 Patient encounter procedure 05/15/2024 10:15 AM EST Office Visit [facility] [address] [place] [address] Brody Ibrahim DPM [address] [facility] [place] [address] [facility] Start: 04-23-2024 End: 04-23-2024 Patient encounter procedure 04/23/2024 11:00 AM EST Office Visit [facility] [address] [place] [address] Brody Ibrahim DPM [address] [place] [address] [facility] Start: 04-09-2024 End: 04-09-2024 Patient encounter procedure 04/09/2024 9:30 AM EST Office Visit [facility] [address] [place] [address] Jordan Duncan MD [address] [place] [address] (Fax) [facility] 100 Start: 03-29-2024 End: 03-29-2024 Patient encounter procedure 03/29/2024 1:00 PM EDT Office Visit [facility] [address] [place] [phone] Brody Ibrahim DPM [address] [place] [address] Arrived [facility] Comment on above: Arrived Start: 03-27-2024 End: 03-27-2024 Patient encounter procedure 03/27/2024 2:00 PM EDT Office Visit [facility] [address] [address] Jordan Duncan MD [address] [place] [address] (Fax) Type 2 diabetes mellitus with diabetic polyneuropathy, without long-term current use of insulin (CMS/HCC); Essential hypertension (CMS/HCC); Microalbuminuria; Diabetic foot (CMS/HCC); Mixed hyperlipidemia (CMS/HCC); Adverse reaction to statin medication; Former smoker; Morbid obesity (CMS/HCC) [facility] 100 Comment on above: Type 2 diabetes mellitus with diabetic p olyneuropathy, without long-term current use of insulin (CMS/HCC); Essential hypertension (CMS/HCC); Microalbuminuria; Diabetic foot (CMS/HCC); Mixed hyperlipidemia (CMS/HCC); Adverse reaction to statin medication; Former smoker; Morbid obesity (CMS/HCC) Start: 03-13-2024 End: 03-13-2024 Patient encounter procedure 03/13/2024 9:45 AM EDT Office Visit [facility] [address] [place] [phone] Brody Ibrahim DPM [address] [place] [address] Arrived [facility] Comment on above: Arrived Start: 02-05-2024 Influenza vaccination Influenza Vaccine (#1) [facility] Start: 01-05-2024 Hemoglobin A1c measurement Diabetes: Hemoglobin A1C [facility] Start: 11-26-2023 Glaucoma screening Diabetes: Retinopathy Screening [facility] Start: 10-29-2023 GFR test (Diabetes, CKD 3-4, OR last GFR 15-59) GFR test (Diabetes, CKD 3-4, OR last GFR 15-59) [facility] Start: 10-26-2023 End: 10-26-2023 Patient encounter procedure 10/26/2023 Office Visit Oncology Newton Stevenson MD [address] [place], [place] [id number] [facility] Start: 10-12-2023 End: 10-12-2023 Patient encounter procedure 10/12/2023 9:30 AM EDT Office Visit [facility] [address] [place] [address] Jordan Duncan MD [address] [place] [address] [facility] Start: 09-27-2023 End: 09-27-2023 Patient encounter procedure 09/27/2023 11:00 AM EDT Procedure Visit [facility] [address] [place] [phone] Brody Ibrahim DPM [address] [facility] [place] [address] [facility] Start: 07-14-2023 Hemoglobin A1c measurement Diabetes: Hemoglobin A1C [facility] Start: 10-20-2022 End: 10-20-2022 Patient encounter procedure 10/20/2022 Office Visit Oncology Newton Stevenson MD [address] [place], [place] [phone] [facility] Start: 09-24-2022 Hemoglobin A1c measurement A1C test (Diabetic or Prediabetic) [facility] Start: 02-04-2022 Influenza vaccination Flu vaccine (#1) [facility] Start: 11-11-2021 Urine screening for protein Diabetic microalbuminuria test [facility] Start: 10-21-2021 End: 10-21-2021 Patient encounter procedure 10/21/2021 Office Visit Oncology Newton Stevenson MD [address] [place] [address] [facility] Start: 10-16-2021 COVID-19 Vaccine (4 - Booster for Pfizer series) COVID-19 Vaccine (4 - Booster for Pfizer series) [facility] Start: 10-14-2021 Lipid panel Lipids [facility] Start: 10-24-2019 End: 10-24-2019 Office Visit [facility] Start: 07-31-2019 End: 07-31-2019 Appointment 07/31/2019 [facility]ointment [facility] Start: 04-30-2019 End: 04-30-2019 Appointment 04/30/2019 Appointment Infusion Therapy [facility] Start: 02-04-2019 Influenza vaccination Flu vaccine (#1) [place], [place] Start: 11-26-2018 Annual Wellness Visit (AWV) Annual Wellness Visit (AWV) [facility] Start: 08-17-2017 Creatinine measurement Creatinine monitoring [facility] Work Phone: Start: 08-17-2017 Creatinine monitoring Creatinine monitoring [place], [place] Start: 08-17-2017 Potassium monitoring Potassium monitoring [place], [place] Start: 08-04-2017 A1C test (Diabetic or Prediabetic) A1C test (Diabetic or Prediabetic) [place] Start: 08-04-2017 Hemoglobin A1c measurement A1C test (Diabetic or Prediabetic) [facility] Start: 02-10-2017 Abdominal aortic aneurysm screening AAA screen [facility] Start: 02-10-2017 Pneumococcal 65+ years Vaccine (1 of 2 - PCV13) Pneumococcal 65+ years Vaccine (1 of 2 - PCV13) [place] Start: 01-29-2017 Shingles Vaccine (2 of 3) Shingles Vaccine (2 of 3) [facility] Start: 02-10-2015 Annual Wellness Visit (AWV) Annual Wellness Visit (AWV) [place] Start: 02-10-2002 Colon cancer screen colonoscopy Colon cancer screen colonoscopy [place], [place] Start: 02-10-2002 Screening for malignant neoplasm of colon Colon cancer screen colonoscopy [facility] Work Phone: Start: 02-10-2002 Shingles Vaccine (1 of 2) Shingles Vaccine (1 of 2) [place], [place] Start: 02-10-1997 Screening for malignant neoplasm of colon [facility] Start: 02-10-1971 DTaP/Tdap/Td vaccine (1 - Tdap) DTaP/Tdap/Td vaccine (1 - Tdap) [facility] Start: 02-10-1971 Hepatitis B vaccine (1 of 3 - Risk 3-dose series) Hepatitis B vaccine (1 of 3 - Risk 3-dose series) [place] Start: 02-10-1970 Diabetic microalbuminuria test Diabetic microalbuminuria test [place] Start: 02-10-1970 Diabetic retinal exam Diabetic retinal exam [facility] Start: 02-10-1970 Glaucoma screening Diabetic retinal exam [facility] Start: 02-10-1970 Hepatitis C screening Hepatitis C screen [facility] Start: 02-10-1970 Urine screening for protein Diabetic Alb to Cr ratio (uACR) test [facility] Start: 1964 Depression Screen Depression Screen [facility] Start: 02-10-1963 DTaP/Tdap/Td vaccine (1 - Tdap) DTaP/Tdap/Td vaccine (1 - Tdap) [place] Start: 02-10-1962 [object Object] Diabetic foot exam [place] Start: 02-10-1962 Diabetic foot examination Diabetic foot exam [facility] Start: 02-10-1962 Diabetic retinal exam Diabetic retinal exam [place] Start: 02-10-1962 Lipid panel [facility] Start: 02-10-1962 Lipid screen [facility] screen [facility] Start: 1950 Annual Wellness Visit (AWV) Annual Wellness Visit (AWV) KITTY QUIROZ [facility] Start: 1950 Hepatitis C screen Hepatitis C screen [place], [place] Start: 1950 Hepatitis C screening Hepatitis C screen [facility] Work Phone: Start: 1950 Screening for malignant neoplasm of colon [facility] Immunizations Immunization Date Immunization Notes Care Provider Fa jillian 03-28-2024 influenza, seasonal, injectable Brody Ibrahim DPM Work Phone: [facility] 03-28-2024 Seasonal trivalent influenza vaccine, adjuvanted, preservative free Brody Ibrahim DPM Work Phone: [facility] 02-28-2023 influenza virus vacc ine, unspecified formulation Topher STEVENSON [facility] 02-28-2023 Influenza, Seasonal, Quadrivalent, Adjuvanted Brody Ibrahim DPM Work Phone: [facility] 04-16-2022 influenza virus vacc ine, unspecified formulation Topher STEVENSON [facility] 04-16-2022 Influenza, Seasonal, Quadrivalent, Adjuvanted Brody Ibrahim DPM Work Phone: [facility] 03-23-2022 Moderna Bivalent Simmons ster Vaccination Brody Ibrahim DPM Work Phone: [facility] 03-23-2022 Moderna SARS-CoV-2 50mcg/0.5mL Booster Brody Ibrahim DPM Work Phone: [facility] 03-23-[address] 12 Years And Older Brody Ibrahim DPM Work Phone: [facility] 03-23-2022 SARS-CoV-2 (COVID-19 ) [id number] Topher STEVENSON [facility] 06-18-2021 SARS-CoV-2 (COVID-19 ) mRNA BNT-162b2 vax Topher STEVENSON [facility] 05-06-2021 influenza virus vacc ine, unspecified formulation Topher STEVENSON [facility] 05-06-2021 Influenza, Seasonal, Quadrivalent, Adjuvanted Brody Ibrahim DPM Work Phone: [facility] 05-06-2021 SARS-CoV-2 (COVID-19 ) Ad26 vaccine, recombinant Topher STEVENSON [facility] 08-28-2020 SARS-CoV-2 (COVID-19 ) mRNA BNT-162b2 vax Topher STEVENSON [facility] 08-28-2020 SARS-CoV-2, Unspecified Garry Ibrahim DPM Work Phone: [facility] 08-27-2020 Pfizer Purple Cap SARS-CoV-2 Vaccination Brody Ibrahim DPM Work Phone: [facility] 08-08-2020 SARS-CoV-2 (COVID-19 ) mRNA BNT-162b2 vax Topher STEVENSON [facility] Comment on above: Result Comment: 2022: [id number] 08-08-2020 SARS-CoV-2, Unspecified Garry Ibrahim DPM Work Phone: [facility] 08-07-2020 Pfizer Purple Cap SARS-CoV-2 Vaccination Brody Ibrahim DPM Work Phone: [facility] 08-04-2020 SARS-CoV-2 (COVID-19 ) Ad26 vaccine, recombinant Topher STEVENSON [facility] 03-22-2020 influenza virus vacc ine, unspecified formulation Topher STEVENSON [facility] 03-22-2020 Influenza, Seasonal, Quadrivalent, Adjuvanted Brody Rusher DPM Work Phone: [facility] 03-06-2019 pneumococcal conjuga te vaccine, 13 valent Topher STEVENSON [facility] 03-05-2019 influenza virus vacc ine, unspecified formulation Topherpeter STEVENSON [facility] 03-05-2019 influenza, high dose seasonal, preservative-free Brody Rusher DPM Work Phone: [facility] 03-05-2019 pneumococcal polysaccharide vaccine, 23 valent Topher STEVENSON [facility] 03-04-2019 Influenza, High-dose Seasonal, Quadrivalent, Preservative Free Brody Rusher DPM Work Phone: [facility] 03-04-2019 pneumococcal polysaccharide vaccine, 23 valent Brody Rusher DPM Work Phone: [facility] 03-03-2018 influenza virus vacc ine, unspecified formulation Topherpeter STEVENSON [facility] 03-03-2018 influenza, high dose seasonal, preservative-free Brody Rusher DPM Work Phone: [facility] 03-03-2018 pneumococcal conjuga te vaccine, 13 valent Topher STEVENSON [facility] 03-03-2018 pneumococcal polysaccharide vaccine, 23 valent Brody Rusher DPM Work Phone: [facility] 03-02-2018 pneumococcal conjuga te vaccine, 13 valent Brody Rusher DPM Work Phone: [facility] 04-06-2017 influenza virus vacc ine, unspecified formulation Topher STEVENSON [facility] 04-06-2017 influenza, injectabl e, quadrivalent, preservative free Brody Ibrahim DPM Work Phone: [facility] 12-04-2016 pneumococcal polysaccharide vaccine, 23 valent Topher STEVENSON [facility] 12-04-2016 zoster vaccine, live Topher STEVENSON [facility] 03-06-2016 Influenza Vaccine, unspecified formulation [facility] 03-06-2016 influenza virus vacc ine, H5N1, A/[place]/ (national stockpile) Brody Ibrahim DPM Work Phone: [facility] 03-06-2016 influenza virus vacc ine, unspecified formulation Brody Ibrahim DPM Work Phone: [facility] 03-06-2016 Influenza, High-dose Seasonal, Quadrivalent, Preservative Free Brody Ibrahim DPM Work Phone: [facility] 03-06-2016 influenza, unspecifi ed formulation Topher STEVENSON [facility] 01-23-2016 influenza virus vacc ine, unspecified formulation Topher STEVENSON [facility] 01-23-2016 influenza, injectabl e, quadrivalent, preservative free Brody Ibrahim DPM Work Phone: [facility] 06-06-2015 pneumococcal polysaccharide vaccine, 23 valent Topher STEVENSON [facility] 03-23-2014 influenza virus vacc ine, unspecified formulation Topher STEVENSON [facility] 03-23-2014 influenza, seasonal, injectable Brody Ibrahim DPM Work Phone: [facility] 04-06-2013 influenza virus vacc ine, unspecified formulation Topher STEVENSON [facility] 04-06-2013 influenza, seasonal, injectable Brody Ibrahim DPM Work Phone: [facility] 04-06-2013 zoster vaccine, live Topher STEVENSON [facility] 04-05-2013 zoster vaccine, live Brody Ibrahim DPM Work Phone: [facility] 04-21-2009 novel influenza-H1N1 -09, preservative-free, injectable Brody Ibrahim DPM Work Phone: [facility] Payers Date Payer Category Payer Private Health Insurance BHARTI lopez [id number] 2022 Unknown 2017 Medicare [id number] 2017 Medicare xxxxxxxxxxx [id number] 1959 Medicare [id number] .[id number] 1959 Private Health Insurance [facility] [id number] [id number] .[id number] 1952 Unknown [id number] 2.16.840.1.684642.3.579.2 .593 1952 Unknown [id number] 2.16.840.1.560925.3.579.2 .593 1952 Unknown [id number] 2.16.840.1.611740.3.579.2 .593 1952 Unknown [id number] 2.16.840.1.057010.3.579.2 .593 1952 Unknown [id number] 2.16.840.1.425946.3.579.2 .593 1952 Unknown [id number] 2.16.840.1.714847.3.579.2 .593 1952 Unknown [id number] 2.16.840.1.834271.3.579.2 .593 1952 Unknown [id number] 2.16.840.1.733108.3.579.2 .593 1952 Unknown [id number] 2.16.840.1.306810.3.579.2 .593 1952 Unknown [id number] 2.16.840.1.019353.3.579.2 .593 1952 Unknown [id number] 2.16.840.1.333074.3.579.2 .593 1952 Unknown [id number] 2.16.840.1.213001.3.579.2 .593 1952 Unknown [id number] 2.16.840.1.519301.3.579.2 .173 1952 Unknown [id number] 2.16.840.1.742302.3.579.2 .173 1952 Unknown [id number] 2.16.840.1.018913.3.579.2 .125 1952 Unknown [id number] 2.16.840.1.259518.3.579.2 .1258 1952 Unknown [id number] 2.16.840.1.764208.3.579.2 .1258 1952 Unknown [id number] 2.16.840.1.674530.3.579.2 .1258 1952 Unknown [id number] 2.16.840.1.748251.3.579.2 .1258 1952 Unknown [id number] 2.16.840.1.763844.3.579.2 .1258 1952 Unknown [id number] 2.16.840.1.586682.3.579.2 .1258 1952 Unknown [id number] 2.16.840.1.901569.3.579.2 .1258 1952 Unknown [id number] 2.16.840.1.149800.3.579.2 .1258 1952 Unknown [id number] 2.16.840.1.948973.3.579.2 .1258 1952 Unknown [id number] 2.16.840.1.396903.3.579.2 .1258 1952 Unknown [id number] 2.16.840.1.914993.3.579.2 .1952 Unknown [id number] 2.16.840.1.469419.3.579.2 .1952 Unknown [id number] 2.16.840.1.505696.3.579.2 .1952 Unknown [id number] 2.16.840.1.858155.3.579.2 .1952 Unknown [id number] 2.16.840.1.450016.3.579.2 .1952 Unknown [id number] 2.16.840.1.177528.3.579.2 .727 1952 Unknown [id number] 2.16.840.1.561781.3.579.2 .727 1952 Unknown [id number] 2.16.840.1.360677.3.579.2 .72 1952 Unknown [id number] 2.16.840.1.895033.3.579.2 .72 1952 Unknown [id number] 2.16.840.1.772017.3.579.2 .72 1952 Unknown [id number] 2.16.840.1.230178.3.579.2 .727 1952 Unknown [id number] 2.16.840.1.281587.3.579.2 .1952 Unknown [id number] 2.16.840.1.788577.3.579.2 .727 1952 Unknown [id number] 2.16.840.1.497612.3.579.2 .72 1952 Unknown [id number] 2.16.840.1.660866.3.579.2 .727 1952 Unknown [id number] 2.16.840.1.783022.3.579.2 .72 Medicare [id number] Social History Date Type Detail Facility Start: 10-18-2018 End: 12-06-2023 Tobacco smoking status NHIS Former sm[place] End: 06-06-2012 History of tobacco use Current sm[place] Start: 10-18-2018 End: 05-17-2023 Cigarettes smoked current (pack per day) - Reported [facility] Start: 10-18-2018 End: 05-17-2023 Alcohol intake No [place] Start: 01-23-2014 Tobacco Comment quit smoking in 1999 [place] Start: 1950 Sex Assigned At Not on file M [place] Start: 10-18-2018 End: 10-21-2021 Alcohol intake Current non-drinker of alcohol (finding) [place] Start: 10-22-2020 End: 12-06-2023 Tobacco use and exposure Never used [employer] Start: 01-18-2022 End: 01-28-2022 Exposure to SARS-CoV-2 (event) Not sure [facility] End: 06-06-2012 History of tobacco use Cigarette Smoker KITTY QUIROZ [facility] Work Phone: Start: 05-17-2023 End: 04-23-2024 Alcohol intake Current drinker of alcohol (finding) [...] 12-05-2023 Functional Status N/A [facility] 06-20-2023 Functional Status N/A [facility] 11-05-2022 Functional Status N/A [facility] 06-18-2022 Functional Status N/A [facility] 05-17-2022 Functional Status N/A [facility] 02-01-2022 Functional Status N/A [facility] Clinical Notes 10-22-2020 to 04-23-2024 Brody Ibrahim DPM - 04/23/2024 11:00 AM ESTPatient InstructionsTelephone Encounter - Chata Polanco - 04/09/2024 3:53 PM ESTTelephone Encounter - Chata Polanco - 04/09/2024 3:53 PM EST Note Date & Type Note Facility 04-23-2024 History of Present illness Narrative Images from the original note were not included. Subjective Patient ID: Juan Miguel Jennings is a 74 y.o. 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 male who presents for Foot Callouses. PCP: Dr. Duncan LV 03/27/24, A1C: 6.4 (10/04), BS: 132 SS: 14. ). HPI Presents for fitting therapeutic footwear and multi-laminate, multi-density custom accommodative orthoses. Relates no specific concerns or complaints. Risk factors: Type II diabetes. Diabetic peripheral neuropathy. Polypharmacy. Aspirin therapy. 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 Toenail deformity. Digital and/or shoe trauma and related complications. Review of Systems Musculoskeletal: Positive for arthralgias, [...] muscle spasms., Disp: 90 tablet, Rfl: 0 famotidine (Pepcid) 20 MG tablet, Take 1 tablet (20 mg) by mouth in the morning and 1 tablet (20 mg) before bedtime., Disp: 180 tablet, Rfl: 0 latanoprost (Xalatan) 0.005 % ophthalmic solution, INSTILL 1 DROP INTO BOTH EYES AT BEDTIME Ophthalmic for 90 Days, Disp: , Rfl: losartan (Cozaar) 50 MG tablet, Take 1 tablet (50 mg) by mouth Daily, Disp: 90 tablet, Rfl: 1 metoprolol tartrate (Lopressor) 100 MG tablet, Take 1 tablet (100 mg) by mouth See administration instructions 1 tablet in AM. 0.5 tablet in PM, Disp: 135 tablet, Rfl: 1 Multiple Vitamin (multivitamin) capsule, Take 1 capsule by mouth in the morning., Disp: , Rfl: oxybutynin XL (Ditropan-XL) 5 MG 24 hr tablet, oxybutynin chloride ER 5 mg tablet,extended release 24 hr TAKE 1 TABLET BY MOUTH EVERY DAY, Disp: , Rfl: pioglitazone (Actos) 30 MG tablet, Take 1 tablet (30 mg) by mouth in the morning., Disp: 90 tablet, Rfl: 1 Simbrinza 1-0.2 % suspension, every 8 (eight) hours., Disp: , Rfl: tamsulosin (Flomax) 0.4 MG 24 hr capsule, Take 0.4 mg by mouth in the morning and 0.4 mg in the evening. Take after meals., Disp: , Rfl: testosterone cypionate (Depo-Testosterone) 200 [...] 2010 Geraldo Raza CATARACT EXTRACTION Left 2019 Dem OTHER SURGICAL HISTORY 03/2017 lesions on bottom of both feet, [facility] [place] OTHER SURGICAL HISTORY 4 stents Geraldo Stafford - 1997 OTHER SURGICAL HISTORY rectal cancer; surgery, chemo [place] and radiation [place]. OTHER SURGICAL HISTORY 09/30/2022 Dorsal Slit, Keri, RADHA TOTAL KNEE ARTHROPLASTY Right 2014 Alexsander Brennan TOTAL KNEE ARTHROPLASTY Left 05/25/[address] HENSON Family History Family History Problem Relation Name Age of Onset Heart disease Mother Diabetes Mother Heart disease Father Diabetes Brother Colon cancer Brother Objective Physical Exam General assessment. Alert and oriented. Pleasant disposition. Presents wearing current [employer] therapeutic footwear with custom orthoses. Vascular: DP 1/4 bilateral. PT 1/4 bilateral. CFT brisk all digits. Gradient temperature: Warm-cool bilateral.. Unremarkable for ankle swelling. Neurologic: Tactile and light touch sensation is compromised and absent over the digital and forefoot areas. Vibratory sensation: Absent at the MTP joints Unable to localize 5.07 monofilament all points plantarly. Orthopedic: Status post partial fifth ray resection bilateral. Multiple digital contractures; non-reducible 2nd digit and MTP joint contracture left foot. Stance assessment: Symmetrical, cavus foot type Dermatologic: Toenail deformity: All remaining digits: Toenail dystrophy and clinical mycosis. Unremarkable for eczema or dermatitis. Web space areas are clean, dry, non-inflamed. Lesion pattern: Raised IPK lesions sub-4th metatarsal condyle bilateral; non-inflamed. The site is non-tender, non-fluctuant, without drainage. Ulceration: Focused exam left foot: Noble stage I appearing wound; located sub 2nd metatarsal condyle; non-inflamed, non-fluctuant, without drainage. Slightly raised keratotic and dried eschar tissue. Assessment/Plan There are no diagnoses linked to this encounter. Chronic, stable onychodystrophy/mycosis multiple digits. Diabetic peripheral neuropathy (Q9). 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 Stable hyperkeratotic lesions bilateral forefoot. Indications for therapeutic footwear and multi-laminate, multi-density custom accommodative orthoses: As noted above: Longstanding diabetic peripheral neuropathy with loss of protective sensation and status post partial 5th ray amputations bilateral. Accommodate forefoot and digital deformities. Offloading of forefoot and digital structures; dispersion of peak plantar pressures; reducing potential for skin breakdown, subsequent neuropathic ulceration and any related complications. Accommodate swelling as needed. Allow patient to maintain current ADLs and physical activity; reducing risk profile. Therapeutic footwear and custom molded accommodative orthoses x 3 pair are noted to be in good quality and therapeutic condition, with no defects noted. Patient is able to effectively place each shoe without difficulty. The shoes appear to fit well in length and width, with sufficient space through the forefoot and toe box areas. These are identical to previous therapeutic footwear. Patient is able to ambulate without difficulty, noting no perceived pressure points, ill-fit or heel slippage. All instructions are reviewed sufficient to his understanding; emphasis on daily inspection for any sign of skin irritation, blister formation, heel slippage etc.; wearing of the shoes inside only until certain that return is not necessary. Further modification of custom orthoses will be necessary; for specific inappropriate placement of offloading pockets. Goals, objectives and rationale reviewed. Appropriate documentation reviewed, signed, witnessed and dated. Procedure: This note was created with the assistance of a speech recognition program. While intending to generate a timely document that accurately reflects the content of the visit, no guarantee can be provided that every grammatical or spelling mistake has been or will be identified or corrected. Thank you for your understanding. Brody Ibrahim DPM documented in this encounter [facility] 04-23-2024 Instructions Brody Ibrahim DPM - 04/23/2024 11:00 AM EST Instructions as noted documented in this encounter [facility] 04-09-2024 Telephone encounter Note Custom orthotics arrived senthil Gruber [facility] 04-09-2024 Miscellaneous Notes Custom orthotics arrived senthil Gruber documented in this encounter [facility] 03-29-2024 History of Present illness Narrative Images from the original note were not included. Subjective Patient ID: Juan Miguel Jennings is a 74 y.o. male who presents for Shoe Measure (Juan Miguel Jennings is a 74 y.o. male who presents for Foot Callouses. PCP: Dr. Dakota YARBROUGH 10/27/23, A1C: 6.3 (10/04), BS: 132 SS: 14). HPI Presents for appropriate measurements and impressions to proceed with new therapeutic footwear and custom fabricated accommodative orthoses; education and counseling relative to appropriate sizing and footwear selection. Offers no specific concerns or complaints. Risk factors: Type II diabetes. Diabetic peripheral neuropathy. Polypharmacy. Aspirin therapy. 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 Toenail deformity. Digital and/or shoe trauma and related complications. Review of Systems Musculoskeletal: Positive for arthralgias, back pain and gait problem. Neurological: Positive for numbness. Medications Current Outpatient Medications: aspirin 81 MG EC tablet, Take 1 tablet (81 mg) by mouth in the morning., Disp: , Rfl: B Complex Vitamins (VITAMIN B COMPLEX PO), Take 1 tablet by mouth in the morning., Disp: , Rfl: cholecalciferol (Vitamin D-3) 50 MCG (1999 UT) tablet, Take by mouth., Disp: , Rfl: cyclobenzaprine (Flexeril) 10 MG tablet, Take 1 tablet (10 mg) by mouth 3 (three) times a day as needed for muscle spasms., Disp: 90 tablet, Rfl: 0 famotidine (Pepcid) 20 MG tablet, Take 1 tablet (20 mg) by mouth in the morning and 1 tablet (20 mg) before bedtime., Disp: 180 tablet, Rfl: 0 latanoprost (Xalatan) 0.005 % ophthalmic solution, INSTILL 1 DROP INTO BOTH EYES AT BEDTIME Ophthalmic for 90 Days, Disp: , Rfl: losartan (Cozaar) 50 MG tablet, Take 1 tablet (50 mg) by mouth Daily, Disp: 90 tablet, Rfl: 1 metoprolol tartrate (Lopressor) 100 MG tablet, Take 1 tablet (100 mg) by mouth See administration instructions 1 tablet in AM. 0.5 tablet in PM, Disp: 135 tablet, Rfl: 1 Multiple Vitamin (multivitamin) capsule, Take 1 capsule by mouth in the morning., Disp: , Rfl: niacin 500 MG tablet, Take 2 tablets (1,000 mg) by mouth in the evening. (Patient taking differently: Take 500 mg by mouth in the evening), Disp: 180 tablet, Rfl: oxybutynin XL (Ditropan-XL) 5 MG 24 hr tablet, oxybutynin chloride ER 5 mg tablet,extended release 24 hr TAKE 1 TABLET BY MOUTH EVERY DAY, Disp: , Rfl: pioglitazone (Actos) 30 MG tablet, Take 1 tablet (30 mg) by mouth in the morning., Disp: 90 tablet, Rfl: 1 Simbrinza 1-0.2 % suspension, every 8 (eight) hours., Disp: , Rfl: tamsulosin (Flomax) 0.4 MG 24 hr capsule, Take 0.4 mg by mouth in the morning and 0.4 mg in the evening. Take after meals., Disp: , Rfl: testosterone cypionate (Depo-Testosterone) 200 [...] Gruber therapeutic footwear with custom orthoses. Vascular: DP 1/4 bilateral. PT 1/4 bilateral. CFT brisk all digits. Gradient temperature: Warm-cool bilateral.. Unremarkable for ankle swelling. Neurologic: Tactile and light touch sensation is compromised and absent over the digital and forefoot areas. Vibratory sensation: Absent at the MTP joints Unable to localize 5.07 monofilament all points plantarly. Orthopedic: Status post partial fifth ray resection bilateral. Multiple digital contractures; non-reducible 2nd digit and MTP joint contracture left foot. Stance assessment: Symmetrical, cavus foot type Dermatologic: Toenail deformity: All remaining digits: Toenail dystrophy and clinical mycosis. Unremarkable for eczema or dermatitis. Web space areas are clean, dry, non-inflamed. Lesion pattern: Raised IPK lesions sub-4th metatarsal condyle bilateral; non-inflamed. The site is non-tender, non-fluctuant, without drainage. Ulceration: Focused exam left foot: Noble stage I appearing wound; located sub 2nd metatarsal condyle; non-inflamed, non-fluctuant, without drainage. Slightly raised keratotic and dried eschar tissue. Assessment/Plan There are no diagnoses linked to this encounter. Chronic, stable onychodystrophy/mycosis multiple digits. Diabetic peripheral neuropathy (Q9). 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 Stable hyperkeratotic lesions bilateral forefoot. Indications for therapeutic footwear and multi-laminate, multi-density custom accommodative orthoses: As noted above: Longstanding diabetic peripheral neuropathy with loss of protective sensation and status post partial 5th ray amputations bilateral. Accommodate forefoot and digital deformities. Offloading of forefoot and digital structures; dispersion of peak plantar pressures; reducing potential for skin breakdown, subsequent neuropathic ulceration and any related complications. Accommodate swelling as needed. Allow patient to maintain current ADLs and physical activity; reducing risk profile. Measurements obtained in the weight-bearing position utilizing [employer] device. Foam impressions obtained simulated weight-bearing. Patient education and counseling relative to appropriate sizing and footwear selection. Patient will proceed with same model as before. Procedure: This note was created with the assistance of a speech recognition program. While intending to generate a timely document that accurately reflects the content of the visit, no guarantee can be provided that every grammatical or spelling mistake has been or will be identified or corrected. Thank you for your understanding. Brody Ibrahim DPM documented in this encounter [facility] 03-29-2024 Instructions Brody Ibrahim DPM - 03/29/2024 1:00 PM EDT As noted documented in this encounter [facility] 03-27-2024 History of Present illness Narrative Images from the original note were not included. Patient ID: Juan Miguel Jennings is a 74 y.o. male who presents for: Hypertension Patient is here for follow-up of elevated blood pressure. He is exercising and is adherent to a low-salt diet. Blood pressure is well controlled at home. Cardiac symptoms: none. Patient denies chest pain, dyspnea, irregular heart beat, lower extremity edema, and palpitations. Cardiovascular risk factors: advanced age (older than 55 for men, 65 for women), diabetes mellitus, dyslipidemia, hypertension, male gender, microalbuminuria, and obesity (BMI >= 30 kg/m2). Use of agents associated with hypertension: steroids. History of target organ damage: none. Hyperlipidemia Pt who presents for follow-up of dyslipidemia. A repeat fasting lipid profile was not done. The patient does not use medications that may worsen dyslipidemias (corticosteroids, progestins, anabolic steroids, diuretics, beta-blockers, amiodarone, cyclosporine, olanzapine). Exercise: daily. Diabetes Mellitus Patient presents for follow up of diabetes. Current symptoms include: paresthesia of the feet and polyuria. Symptoms have stabilized. Patient denies increased appetite, polydipsia, and visual disturbances. Evaluation to date has included: hemoglobin A1C. Home sugars: BGs are running consistent with Hgb A1C. Also this is a [id number] visit for consideration for diabetic shoes. Patient has utilized diabetic shoes previously and notices improvement. Review of Systems Constitutional: Negative for chills and fever. Respiratory: Negative for cough, shortness of breath and wheezing. Cardiovascular: Negative for chest pain and palpitations. Gastrointestinal: Negative for abdominal pain. Genitourinary: Negative for frequency and urgency. Objective The patient is pleasant and in no acute distress The patient does not appear to have a gross neurologic deficit. The patient has good eye contact and clear speech Bilateral lower legs demonstrate a violaceous hue from about the mid calf down that is improved with elevation in blanches. He has some pes planus. He has significant calluses mostly over the forefoot and metatarsal area and a little bit on the heel and great toe. There is trace edema. Currently there are no skin breakdowns, but there is some superficial mild scarring from previous ulcerations. Visit Vitals BP 128/76 Pulse 71 Ht 6' 6 Wt 350 lb SpO2 97% BMI 40.45 kg/m Smoking Status Former BSA 2.96 m Component Ref Range & Units 6 d ago (03/21/24) 5 mo ago (10/05/23) 11 mo ago (04/13/23) 1 yr ago (10/21/22) 1 yr ago (10/21/22) 2 yr ago (03/22/22) 6 yr ago (06/15/17) Hemoglobin A1C <5.7 % of total Hgb 6.4 High 6.3 High CM 6.0 High CM 5.5 CM 5.5 R 5.9 High R, CM 6.5 Allergies Allergen Reactions Clindamycin Diarrhea Other reaction(s): nausea diarrhea Ezetimibe Unknown Other Reaction(s): abdominal pain Glipizide Diarrhea and Unknown Other Reaction(s): diarrhea Metformin Diarrhea and Unknown Other Reaction(s): diarrhea Pravastatin Unknown Other Reaction(s): Other Other reaction(s): abdominal pain Rosuvastatin Unknown Other Reaction(s): abdominal pain Other reaction(s): abdominal pain Current Outpatient Medications on File Prior to Visit Medication Sig Dispense Refill aspirin 81 MG EC tablet Take 1 tablet (81 mg) by mouth in the morning. B Complex Vitamins (VITAMIN B COMPLEX PO) Take 1 tablet by mouth in the morning. cholecalciferol (Vitamin D-3) 50 MCG (2000 UT) tablet Take by mouth. cyclobenzaprine (Flexeril) 10 MG tablet Take 1 tablet (10 mg) by mouth 3 (three) times a day as needed for muscle spasms. 90 tablet 0 famotidine (Pepcid) 20 MG tablet Take 1 tablet (20 mg) by mouth in the morning and 1 tablet (20 mg) before bedtime. 180 tablet 0 latanoprost (Xalatan) 0.005 % ophthalmic solution INSTILL 1 DROP INTO BOTH EYES AT BEDTIME Ophthalmic for 90 Days losartan (Cozaar) 50 MG tablet Take 1 tablet (50 mg) by mouth Daily 90 tablet 1 metoprolol tartrate (Lopressor) 100 MG tablet Take 1 tablet (100 mg) by mouth See administration instructions 1 tablet in AM. 0.5 tablet in PM 135 tablet 1 Multiple Vitamin (multivitamin) capsule Take 1 capsule by mouth in the morning. niacin 500 MG tablet Take 2 tablets (1,000 mg) by mouth in the evening. (Patient taking differently: Take 500 mg by mouth in the evening) 180 tablet oxybutynin XL (Ditropan-XL) 5 MG 24 hr tablet oxybutynin chloride ER 5 mg tablet,extended release 24 hr TAKE 1 TABLET BY MOUTH EVERY DAY pioglitazone (Actos) 30 MG tablet Take 1 tablet (30 mg) by mouth in the morning. 90 tablet 1 Simbrinza 1-0.2 % suspension every 8 (eight) hours. tamsulosin (Flomax) 0.4 MG 24 hr capsule Take 0.4 mg by mouth in the morning and 0.4 mg in the evening. Take after meals. testosterone cypionate (Depo-Testosterone) 200 MG/ML injection Inject 200 mg into the shoulder, thigh, or buttocks every 28 (twenty-eight) days. timolol (Timoptic) 0.25 % ophthalmic solution Administer 1 drop into both eyes at bedtime [DISCONTINUED] Rhopressa 0.02 % solution INSTILL 1 DROP INTO LEFT EYE EVERY NIGHT Ophthalmic for 30 [DISCONTINUED] sucralfate (Carafate) 1 g tablet Dissolve 1 tablet in 2 oz water. Take 30 minutes before meals 3 times daily and at bedtime 120 tablet 0 No current facility-administered medications on file prior to visit. 1. Type 2 diabetes mellitus with diabetic polyneuropathy, without long-term current use of insulin ([facility]) (Primary) Chronic problem, stable, to goal. Patient has multiple podiatric issues. The forms from Podiatry were reviewed. Patient's feet were examined. I concur with the forms from Podiatry. Diabetic shoes are medically indicated. I certify that I had a [id number] encounter with this patient at todays office visit. Due to this medical condition the patient requires DME. I certify that based on my findings The DME ordered is medically necessary for this patient. This has been discussed with the patient and/or their signs and displays sales representative and mutually agreed upon. See the scanned documents - pioglitazone (Actos) 30 MG tablet; Take 1 tablet (30 mg) by mouth in the morning. Dispense: 90 tablet; Refill: 1 - Comprehensive metabolic panel; Future - Hemoglobin A1c; Future - Comprehensive metabolic panel - Hemoglobin A1c 2. Acquired hallux malleus of left foot Comorbid condition currently being managed by Podiatry 3. Acquired hammer toes of both feet Comorbid condition currently being managed by Podiatry 4. Foot callus Comorbid condition currently being managed by Podiatry 5. 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) Comorbid condition currently being managed by Podiatry 6. Partial nontraumatic amputation of foot, left (CMS/HCC) Comorbid condition currently being managed by Podiatry 7. Venous stasis dermatitis of both lower extremities Chronic problem, stable. Does not appear to be progressing significantly. Discussed the importance of keeping the area moisturized. 8. Type 2 diabetes mellitus with diabetic microalbuminuria, without long-term current use of insulin ([facility]) Chronic problem, stable, to goal. 9. Microalbuminuria Chronic problem, defining an aspect the nephropathy, with significant risk, uncertain progression requiring longitudinal monitoring, and moderate decision making. Microalbuminuria describes a moderate increase in the level of urine albumin. Normally, the kidneys filter albumin, so if the kidney leaks small amounts of albumin into the urine then it is a indicator of chronic kidney disease. Microalbuminuria is an independent indicator of increased cardiovascular risk among individuals and therefore can be used for risk stratification for cardiovascular disease. 10. Essential hypertension ([facility]) In prescribing a renewal to their current medication, consideration of the following encompasses moderate decision making; the current prescriptions and supplements, the current allergies and medication intolerances, current medical conditions, and potential drug interactions. Any changes to risks, benefits, and reason for renewing their current medication due to the above were discussed. The patient was given a chance to ask questions today and all questions were answered. The patient is to contact us if any other questions arise or if any problems occur. (Utilizing the original guidelines or the 2020 office/outpatient code guidelines for selecting the level of E/M service, In both sets of guidelines, prescription drug management appears in the moderate medical decision making (MDM) row. Neither the original guidelines nor the new guidelines state that a new prescription or change is needed in order to credit prescription drug management) - losartan (Cozaar) 50 MG tablet; Take 1 tablet (50 mg) by mouth Daily Dispense: 90 tablet; Refill: 1 - metoprolol tartrate (Lopressor) 100 MG tablet; Take 1 tablet (100 mg) by mouth See administration instructions 1 tablet in AM. 0.5 tablet in PM Dispense: 135 tablet; Refill: 1 - Comprehensive metabolic panel; Future - Comprehensive metabolic panel 11. Mixed hyperlipidemia ([facility]) - Lipid panel; Future - Lipid panel 12. Adverse reaction to statin medication Diagnosis for exclusion for HEDIS measures for both diabetes with statin and mixed dyslipidemia with statin. 13. Former smoker Continue nonsmoking 14. Morbid obesity ([facility]) Continue lifestyle changes as able documented in this encounter [facility] 03-13-2024 History of Present illness Narrative Images from the original note were not included. Subjective Patient ID: Juan Miguel Jennings is a 74 y.o. male who presents for FUV (Juan Miguel Jennings is a 73 y.o. male who presents for Foot Callouses. PCP: Dr. Dakota YARBROUGH 10/27/23, A1C: 6.3 (10/04), BS: 132 SS: 14). HPI Presents for care of thick calluses involving both feet. Denies bleeding or drainage. Denies redness or swelling. Relates essentially no discomfort, acknowledging peripheral neuropathy. Reports good compliance with therapeutic footwear and accommodative orthoses; well satisfied. Risk factors: Type II diabetes. Diabetic peripheral neuropathy. Polypharmacy. Aspirin therapy. Status post partial fifth ray amputation bilateral. Toenail deformity. Digital and/or shoe trauma and related complications. Review of Systems Musculoskeletal: Positive for arthralgias, back pain and gait problem. Neurological: Positive for numbness. Medications Current Outpatient Medications: aspirin 81 MG EC tablet, Take 1 tablet (81 mg) by mouth in the morning., Disp: , Rfl: B Complex Vitamins (VITAMIN B COMPLEX PO), Take 1 tablet by mouth in the morning., Disp: , Rfl: cholecalciferol (Vitamin D-3) 50 MCG (1999 UT) tablet, Take by mouth., Disp: , Rfl: cyclobenzaprine (Flexeril) 10 MG tablet, Take 1 tablet (10 mg) by mouth 3 (three) times a day as needed for muscle spasms., Disp: 90 tablet, Rfl: 0 famotidine (Pepcid) 20 MG tablet, Take 1 tablet (20 mg) by mouth in the morning and 1 tablet (20 mg) before bedtime., Disp: 180 tablet, Rfl: 0 latanoprost (Xalatan) 0.005 % ophthalmic solution, INSTILL 1 DROP INTO BOTH EYES AT BEDTIME Ophthalmic for 90 Days, Disp: , Rfl: losartan (Cozaar) 50 MG tablet, Take 1 tablet (50 mg) by mouth Daily, Disp: 90 tablet, Rfl: 1 metoprolol tartrate (Lopressor) 100 MG tablet, Take 1 tablet (100 mg) by mouth See administration instructions 1 tablet in AM. 0.5 tablet in PM, Disp: 135 tablet, Rfl: 1 Multiple Vitamin [...] every 8 (eight) hours., Disp: , Rfl: sucralfate (Carafate) 1 g tablet, Dissolve 1 tablet in 2 oz water. Take 30 minutes before meals 3 times daily and at bedtime, Disp: 120 tablet, Rfl: 0 tamsulosin (Flomax) 0.4 MG 24 hr capsule, [...] Gruber therapeutic footwear with custom orthoses. Vascular: DP 1/4 bilateral. PT 1/4 bilateral. CFT brisk all digits. Gradient temperature: Warm-cool bilateral.. Unremarkable for ankle swelling. Neurologic: Tactile and light touch sensation is compromised and absent over the digital and forefoot areas. Vibratory sensation: Absent at the MTP joints Unable to localize 5.07 monofilament all points plantarly. Orthopedic: Status post partial fifth ray resection bilateral. Multiple digital contractures; non-reducible 2nd digit and MTP joint contracture left foot. Stance assessment: Symmetrical, cavus foot type Dermatologic: Toenail deformity: All remaining digits: Toenail dystrophy and clinical mycosis. Unremarkable for eczema or dermatitis. Web space areas are clean, dry, non-inflamed. Lesion pattern: Raised IPK lesions sub-4th metatarsal condyle bilateral; non-inflamed. The site is non-tender, non-fluctuant, without drainage. Ulceration: Focused exam left foot: Noble stage I appearing wound; located sub 2nd metatarsal condyle; non-inflamed, non-fluctuant, without drainage. Slightly raised keratotic and dried eschar tissue. Assessment/Plan There are no diagnoses linked to this encounter. Chronic, stable onychodystrophy/mycosis multiple digits. Diabetic peripheral neuropathy (Q9). 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 Stable hyperkeratotic lesions bilateral forefoot. Care plan: conservative and palliative care measures are understood and indicated. Diabetic education and assessment relative to the high risk condition. Encourage compliance with therapeutic footwear and accommodative orthoses. Discourage any unshod walking or weight-bearing activity. Pumice stone as needed. Encourage emollient therapy daily. Pre-determination: Therapeutic footwear and custom accommodative orthoses. Procedure: Aseptic technique: #15 scalpel: Sharp debridement of hyperkeratotic lesions; reducing direct and indirect pressure; reducing potential [...] Brody Ibrahim DPM documented in this encounter [facility] 03-13-2024 Instructions Brody Ibrahim DPM - 03/13/2024 9:45 AM EDT As noted documented in this encounter [facility] 12-05-2023 Hospital Discharge instructions Patient Education 12/05/2023 [...] therapy. Follow these instructions at home: Take [id number] and prescription medicines only as told by [...] provider. Document Revised: 01/22/2021 Document Reviewed: 01/22/2021 [employer] Patient Education 2022 [employer]. Follow Up Care 12/05/2023 07:35:26 With:KERI NOLASCO, Topher Ordoñez, URL Address: [facility] [address], [place] [id number]- [phone] When: Unknown [facility] 12-05-2023 Note Patient Education Urology Hypogonadism, Male [...] Follow these instructions at home: ? Take [id number] and prescription medicines only as told by [...] provider. Document Revised: (more content not included)... [facility] [facility] 11-07-2023 Hospital Discharge instructions Follow Up Care 11/07/2023 08:41:09 With:KERI NOLASCO, Topher Ordoñez, URL Address: [facility] [address] , [place] [phone] When: Unknown [facility] 07-19-2023 History of Present illness Narrative Images [...] May 2023; effectively healed following treatment at [facility] wound Center. Currently relates no bleeding [...] feet, highlander OTHER SURGICAL HISTORY 4 stents KaGeraldo barajas - 1997 OTHER SURGICAL HISTORY rectal cancer; [...] and oriented. Pleasant disposition. Presents wearing current Comfort therapeutic footwear with custom orthoses. Vascular: Pedal [...] with wound right foot; effectively managed at [facility] wound care center. Care plan: conservative [...] Brody Ibrahim DPM documented in this encounter [facility] 07-19-2023 Instructions Brody Ibrahim DPM - 07/19/2023 10:30 AM EST As noted documented in this encounter [facility] 06-20-2023 Hospital Discharge instructions Patient Education 06/20/2023 [...] therapy. Follow these instructions at home: Take eziv-lag-kjumwyw and prescription medicines only as told by [...] provider. Document Revised: 01/22/2021 Document Reviewed: 01/22/2021 [employer] Patient Education 2022 [employer]. Follow Up Care 02/08/2023 12:23:35 With:KERI NOLASCO, Topher Ordoñez, URL Address: [facility] [address] , [place] [phone] When: Unknown Comments:6 mos w/ PSA and T level (pt to also get PSA now) [facility] [place] 04-08-2023 Note [place] Cardiology - [facility] Abilio Jennings is a 73 y.o. year old [...] of colon cancer Testicular hypofunction Hx of jail use of blood thinners Internal derangement of [...] man with prior history of CAD, s/p PA and stenting procedures in the past. He [...] not included)... [facility] 11-05-2022 Hospital Discharge instructions Patient Education 11/05/2022 [...] urethra. Follow these instructions at home: Take bpzp-cff-twrkykq and prescription medicines only as told by [...] provider. Document Revised: 12/09/2021 Document Reviewed: 12/09/2021 [employer] Patient Education 2022 [employer]. Follow Up Care 05/17/2022 10:46:35 With:KERI NOLASCO, Topher Ordoñez, URL Address: [facility] [address] , [place] [address]- When: Unknown [facility]22 History of Present illness Narrative Patient [...] see for visit documented in this encounter KITTY QUIROZ [employer] Work Phone: 09-15-2022 Note EXAM: XR CHEST 2 V HISTORY: Pre-surgery evaluation COMPARISON: None. TECHNIQUE: PA and lateral views of the chest. FINDINGS: The cardiomediastinal silhouette is normal. No focal consolidation is identified. There is no pneumothorax. No pleural effusion is noted. The osseous structures are intact. IMPRESSION: No acute cardiopulmonary process. Electronically authenticated by: DARRIUS BOLTON Date: 2022-09-15 12:26 [facility] 06-18-2022 Hospital Discharge instructions Patient Education 06/18/2022 [...] urethra. Follow these instructions at home: Take srny-rgq-abaacaa and prescription medicines only as told by [...] 05/23/2006 Document Revised: 04/17/2019 Document Reviewed: 06/27/2017 Else[employer]ANOSOL Patient Education 2020 [employer] Follow Up Care 06/14/2022 09:33:13 With:KERI NOLASCO, Topher Ordoñez, URL Address: [address] [place], [place] [phone]- When: Unknown [facility] 05-17-2022 Hospital Discharge instructions Patient Education 05/17/2022 [...] urethra. Follow these instructions at home: Take vmka-axj-heljrmr and prescription medicines only as told by [...] 05/23/2006 Document Revised: 04/17/2019 Document Reviewed: 06/27/2017 [employer] Patient Education 2020 [employer]. Follow Up Care 04/21/2022 09:42:50 With:KERI NOLASCO, Topher Ordoñez, URL Address: [facility] [address] , [place] [address]- When: Unknown [facility] [place] 03-23-2022 Note PROCEDURE: XR FOOT R T [...] authenticated by: BRODY PAYAN Date: 2022-03-23 06:26 [facility] 02-01-2022 Hospital Discharge instructions Patient Education 02/01/2022 [...] urethra. Follow these instructions at home: Take brqa-djb-slsthqe and prescription medicines only as told by [...] 05/23/2006 Document Revised: 04/17/2019 Document Reviewed: 06/27/2017 [employer] Patient Education 2020 [employer] Follow Up Care 08/03/2021 15:20:11 With:KERI NOLASCO, Topher Ordoñez, URL Address: [address] [place] [address]- When: Unknown [facility] [place] [facility] Blood 10-22-2020 History of Present illness Narrative 1225 [...] ambulating without complaints documented in this encounter [facility] Work Phone: Evaluation + Plan note Future Appointments Appointment Date:09/28/2021 09:00:00 AM Scheduled Provider: Location:[facility] Appointment Type:URO Nurse Visit Appointment Date:02/01/2022 09:45:00 AM Scheduled Provider:Topher STEVENSON MD Location:[facility] Appointment Type:URO Office Visit [facility] General Blood Evaluation + Plan note Future Appointments Appointment Date:10/26/2021 09:00:00 AM Scheduled Provider: Location:[facility] Appointment Type:URO Nurse Visit Appointment Date:02/01/2022 09:45:00 AM Scheduled Provider:Topher STEVENSON MD Location:[facility] Appointment Type:URO Office Visit [facility] Evaluation + Plan note Future Appointments Appointment Date:11/23/2021 09:00:00 AM Scheduled Provider: Location:[facility] Appointment Type:URO Nurse Visit Appointment Date:02/01/2022 09:45:00 AM Scheduled Provider:Topher STEVENSON MD Location:[facility] Appointment Type:URO Office Visit [facility] Blood Evaluation + Plan note Future Appointments Appointment Date:12/21/2021 09:00:00 AM Scheduled Provider: Location:[facility] Appointment Type:URO Nurse Visit Appointment Date:02/01/2022 09:45:00 AM Scheduled Provider:Topher STEVENSON MD [facility] Type[facility]O Office Visit [facility] [place] Evaluation + Plan note Future Appointments Appointment Date:02/01/2022 09:45:00 AM Scheduled Provider:Topher STEVENSON MD Location:[facility] Appointment Type:URO Office Visit Diagnostic Tests PendingTestosterone Level Total 12/21/21 [facility] [place] Evaluation + Plan note Future Appointments Appointment Date:03/01/2022 09:30:00 AM Scheduled Provider: Location:[facility] Appointment Type:URO Nurse Visit Diagnostic Tests PendingTestosterone Level Total 04/06/22PSA Total 03/06/22 [facility] Evaluation + Plan note Future Appointments Appointment Date:03/31/2022 08:15:00 AM Scheduled Provider: Location:[facility] Appointment Type:URO Nurse Visit [facility] Evaluation + Plan note Future Appointments Appointment Date:04/21/2022 09:15:00 AM Scheduled Provider: Location:[facility] Appointment Type:URO Nurse Visit [facility] Evaluation + Plan note Future Appointments Appointment Date:05/19/2022 08:00:00 AM Scheduled Provider:Mandy Schaefer MD Location:[facility] Appointment Type:URO Office Visit Diagnostic Tests PendingPSA Total 04/16/22Testosterone Level Total 04/16/22 [facility] Evaluation + Plan note Future Appointments Appointment Date:06/14/2022 09:00:00 AM Scheduled Provider: Location:[facility] Appointment Type:URO Nurse Visit Appointment Date:11/15/2022 08:45:00 AM Scheduled Provider:Topher STEVENSON MD [facility] App[facility] Type:URO Office Visit Diagnostic Tests PendingPSA Total 05/17/22Testosterone Level Total 05/17/22 [facility] Evaluation + Plan note Future Appointments Appointment Date:09/06/2022 09:00:00 AM Scheduled Provider: Location:[facility] Appointment Type:URO Nurse Visit Appointment Date:11/15/2022 08:45:00 AM Scheduled Provider:Topher STEVENSON MD Location:[facility] Appointment Type:URO Office Visit [facility] Evaluation + Plan note Future Appointments Appointment Date:10/05/2022 09:00:00 AM Scheduled Provider: Location:[facility] Appointment Type:URO Nurse Visit Appointment Date:10/29/2022 08:45:00 AM Scheduled Provider:Topher STEVENSON MD Location:[facility] Appointment Type:URO Office Visit Appointment Date:11/05/2022 09:45:00 AM Scheduled Provider:Topher STEVENSON MD [facility] Appointment Type:URO Office Visit [facility] Evaluation + Plan note Future Appointments Appointment Date:11/05/2022 09:45:00 AM Scheduled Provider:Topher STEVENSON MD Location:[facility] Appointment Type:URO Office Visit [facility] Evaluation + Plan note Future Appointments Appointment Date:12/03/2022 09:15:00 AM Scheduled Provider: [facility] Appointment Type:URO Nurse Visit Diagnostic Tests PendingTestosterone Level Total 11/05/22PSA Total 11/05/22 [facility] Evaluation + Plan note Future Appointments Appointment Date:01/03/2023 08:15:00 AM Scheduled Provider: Location:[facility] Appointment Type:URO Nurse Visit [facility] Evaluation + Plan note Future Appointments Appointment Date:01/31/2023 08:45:00 AM Scheduled Provider: Location:[facility] Appointment Type:URO Nurse Visit [facility] Evaluation + Plan note Future Appointments Appointment Date:03/07/2023 08:45:00 AM Scheduled Provider: Location:[facility] Appointment Type:URO Nurse Visit Appointment Date:04/04/2023 08:45:00 AM Scheduled Provider: Location:[facility] Appointment Type:URO Nurse Visit Appointment Date:05/02/2023 08:45:00 AM Scheduled Provider: Location:[facility] Appointment Type:URO Nurse Visit Appointment Date:05/27/2023 09:45:00 AM Scheduled Provider:Topher STEVENSON MD [facility] Type:[facility]O Office Visit [facility] Evaluation + Plan note Future Appointments Appointment Date:05/02/2023 08:45:00 AM Scheduled Provider: Location:[facility] Appointment Type:URO Nurse Visit Appointment Date:06/20/2023 10:30:00 AM Scheduled Provider:Topher STEVENSON MD [facility] Type:URO Office Visit [facility] Evaluation + Plan note Future Appointments Appointment Date:06/20/2023 10:30:00 AM Scheduled Provider:Topher STEVENSON MD Location:[facility] Appointment Type:URO Office Visit Diagnostic Tests PendingTestosterone Level Total 05/09/23 [facility] Evaluation + Plan note Future Appointments Appointment Date:07/18/2023 09:30:00 AM Scheduled Provider: Location:[facility] Appointment Type:URO Nurse Visit Diagnostic Tests PendingPSA Total 06/20/23Testosterone Level Total 06/20/23 [facility] Evaluation + Plan note Future Appointments Appointment Date:08/15/2023 10:00:00 AM Scheduled Provider: Location:[facility] Appointment Type:URO Nurse Visit [facility] Evaluation + Plan note Future Appointments Appointment Date:09/09/2023 08:30:00 AM Scheduled Provider: Location:[facility] Appointment Type:URO Nurse Visit [facility] Evaluation + Plan note Future Appointments Appointment Date:10/07/2023 08:30:00 AM Scheduled Provider: Location:[facility] Appointment Type:URO Nurse Visit [facility] Evaluation + Plan note Future Appointments Appointment Date:11/07/2023 09:00:00 AM Scheduled Provider: Location:[facility] Appointment Type:URO Nurse Visit [facility] Evaluation + Plan note Future Appointments Appointment Date:12/05/2023 10:45:00 AM Scheduled Provider:Topher STEVENSON MD Location[facility] Appointment Type:URO Office Visit [facility] Evaluation + Plan note Future Appointments Appointment Date:01/02/2024 09:00:00 AM Scheduled Provider: Location:[facility] Appointment Type:URO Nurse Visit Diagnostic Tests PendingTestosterone Level Total 12/05/23emoglobin 12/05/23 [facility] Evaluation + Plan note Future Appointments Appointment Date:01/02/2024 09:00:00 AM Scheduled Provider: Location:[facility] Appointment Type:URO Nurse Visit [facility] Evaluation + Plan note Future Appointments Appointment Date:02/27/2024 09:00:00 AM Scheduled Provider: Location:[facility] Appointment Type:URO Nurse Visit [facility] Evaluation + Plan note Future Appointments Appointment Date:03/27/2024 09:00:00 AM Scheduled Provider: Location[facility] Appointment Type:URO Nurse Visit Appointment Date:04/23/2024 09:30:00 AM Scheduled Provider: [facility] App[facility] Type:URO Nurse Visit Appointment Date:05/21/2024 10:45:00 AM Scheduled Provider:Topher STEVENSON MD [facility] App[facility] Type:URO Office Visit [facility] Evaluation + Plan note Future Appointments Appointment Date:04/23/2024 09:30:00 AM Scheduled Provider: [facility] Appointment Type:URO Nurse Visit Appointment Date:05/21/2024 10:45:00 AM Scheduled Provider:Topher STEVENSON MD [facility] App[facility] Type:URO Office Visit [facility] Evaluation + Plan note Future Appointments Appointment Date:05/08/2024 09:00:00 AM Scheduled Provider: Location:[facility] Appointment Type:URO Nurse Visit Appointment Date:05/21/2024 10:45:00 AM Scheduled Provider:Topher STEVENSON MD Location:[facility] Appointment Type:URO Office Visit [facility] Evaluation note Diagnosis Polycythemia- Primary Polycythemia vera documented in this encounter [employer] Phone: evaluation note* Diagnosis Polycythemia- Primary Polycythemia vera documented in this encounter KITTY QUIROZ [employer] Phone: evaluation note* Diagnosis Dermatophytosis of nail- Primary Dystrophic nail Other specified disease of nail Diabetic polyneuropathy associated with type 2 diabetes mellitus ([facility]) Nontraumatic amputation of foot, right ([facility]) Nontraumatic amputation of foot, left ([facility]) Acquired keratoderma documented in this encounter [facility] HealthcareEvaluation note* Diagnosis Acquired keratoderma- Primary Diabetic polyneuropathy associated with type 2 diabetes mellitus ([facility]) Nontraumatic amputation of foot, left ([facility]) Nontraumatic amputation of foot, right ([facility]) documented in this encounter [facility] HealthcareEvaluation note* Diagnosis Type 2 diabetes mellitus with diabetic polyneuropathy, without long-term current use of insulin ([facility])- Primary Acquired hallux malleus of left foot Acquired hammer toes of both feet Foot callus Corns and callosities Partial nontraumatic amputation of right foot ([facility]) Partial nontraumatic amputation of foot, left ([facility]) Venous stasis dermatitis of both lower extremities Type 2 diabetes mellitus with diabetic microalbuminuria, without long-term current use of insulin ([facility]) Microalbuminuria Proteinuria Essential hypertension ([facility]) Unspecified essential hypertension Mixed hyperlipidemia ([facility]) Mixed hyperlipidemia Adverse reaction to statin medication Former smoker Personal history of tobacco use, presenting hazards to health Morbid obesity ([facility]) Morbid obesity documented in this encounter [facility] HealthcareEvaluation note* Diagnosis Diabetic polyneuropathy associated with type 2 diabetes mellitus ([facility])- Primary Nontraumatic amputation of foot, left ([facility]) Nontraumatic amputation of foot, right ([facility]) documented in this encounter [facility] HealthcareHospital course Narrative No data available for this section [facility] Hospital Discharge instructions No data available for this section [facility] progress note No data available for this section [facility] Blood Summary Purpose Family History No Family History [...] FoundNo Family History Records Found Advance Directives Documents on File Type Date Recorded Patient Plaster Molder Expl anation Advance Directives and Livin g Will Advance Directives and Livin g Will 08/31/2013 9:46 AM Power of Stubber Power of Stubber 08/31/2013 9:46 AM Latest Code Status on File Code Status Date Activated Date Inactivated Comments Full Code 08/06/2016 9:06 AM 08/09/2016 5:53 PM Full Code 08/04/2016 9:28 PM 08/06/2016 9:06 AM Full Code 05/15/2015 12:42 PM 05/19/2015 6:52 PM Full Code 05/12/2015 11:22 AM 05/15/2015 12:42 PM Full Code 05/13/2014 2:36 PM 05/13/2014 9:20 PM Documents on File Type Date Recorded Patient Plaster Molder Expl anation ACP-Advance Directive ACP-Power of Stubber ACP-Advance Directive 08/31/2013 9:46 AM ACP-Power of Stubber 08/31/2013 9:46 AM Documents on File Type Date Recorded Patient Plaster Molder Expl anation ACP-Advance Directive 08/31/2013 9:46 AM ACP-Power of Stubber 08/31/2013 9:46 AM Latest Code Status on [...] Documents on File Type Date Recorded Patient Plaster Molder Expl anation Advance Directives and Living Will 11/20/2019 2018-05-09 Living Wi ll Advance Directives and Living Will 11/20/2019 2018-05-09 Power Of Stubber History of Present Illness * Luh Hoffman [...] section and content) DATE CREATED AUTHOR 11/24/2017 [facility] DATE CREATED AUTHOR AUTHOR'S ORGANIZ ATION 03/15/2018 [facility] DATE CREATED AUTHOR AUTHOR'S ORGANIZ ATION 07/01/2021 [facility] DATE CREATED AUTHOR AUTHOR'S ORGANIZ ATION 09/26/2021 [facility] dical Specialist DATE CREATED AUTHOR AUTHOR'S ORGANIZ ATION 11/13/2022 [facility] DATE CREATED AUTHOR AUTHOR'S ORGANIZ ATION 04/09/2023 [facility] DATE CREATED AUTHOR AUTHOR'S ORGANIZ ATION 11/10/2023 [facility] DATE CREATED AUTHOR AUTHOR'S ORGANIZ ATION 02/25/2024 [facility] DATE CREATED AUTHOR AUTHOR'S ORGANIZ ATION 04/25/2024 [facility] d[facility] Specialists EPIC DATE CREATED AUTHOR AUTHOR'S ORGANIZ ATION 04/26/2024 [facility] Care Team (unrecognized sect ion and content) Pastoral Assistant Relationship Specialty Start Date End Date Jordan Duncan MD PCP - General 07/25/19 Pastoral Assistant Relationship Specialty Start Date End Date Jordan Duncan MD [address] [place] [address] PCP - General Family Medicine 10/25/22 Mitch Mello MD [address] [place] [address] Referring Physician Cardiology 05/17/23 Jr. Anuja Henson DO [address] [address] Referring Physician Orthopaedic Surgery 05/17/23 Brody Ibrahim DPM [address] [place] [address] Referring Physician Podiatry 05/17/23 Pastoral Assistant Relationship Specialty Start Date End Date Jordan Duncan MD [address] [phone] PCP - General Family Medicine 10/25/22 Mitch Mello MD [address] [place] [address] Referring Physician Cardiology 05/17/23 Jr. Anuja Henson DO [address] [address] Referring Physician Orthopaedic Surgery 05/17/23 Brody Ibrahim DPM [address] [place] [address] Referring Physician Podiatry 05/17/23 Pastoral Assistant Relationship Specialty Start Date End Date Jordan Duncan MD [address] [place] [address] (Fax) PCP - General Family Medicine 10/25/22 Jordan Duncan MD [address] [place] [address] PCP - ACO Reach 08/05/23 Mitch Mello MD [address] [place] [address] Referring Physician Cardiology 05/17/23 Jr. Anuja Henson DO [address] [place] [address] Referring Physician Orthopaedic Surgery 05/17/23 Brody Ibrahim DPM [address] [place] [address] Referring Physician Podiatry 05/17/23 Pastoral Assistant Relationship Specialty Start Date End Date Jordan Duncan MD [address] [place] [address] (Fax) PCP - General Family Medicine 10/25/22 Jordan Duncan MD [address] [place] [address] (Fax) PCP - ACO Reach 08/05/23 Mitch Mello MD [address] [place] [address] Referring Physician Cardiology 05/17/23 Jr. Anuja Henson DO [address] [facility] [address] [place] [address] Referring Physician Orthopaedic Surgery 05/17/23 Brody Ibrahim DPM [address] [place] [address] Referring Physician Podiatry 05/17/23 Pastoral Assistant Relationship Specialty Start Date End Date Jordan Duncan MD [address] [place] [address] (Fax) PCP - General Family Medicine 10/25/22 Jordan Duncan MD [address] [phone] (Fax) PCP - ACO Reach 08/05/23 Mitch Mello MD [address] [place] [address] Referring Physician Cardiology 05/17/23 Jr. Anuja Henson DO [address] [address] Referring Physician Orthopaedic Surgery 05/17/23 Brody Ibrahim DPM [address] [place] [address] Referring Physician Podiatry 05/17/23 Pastoral Assistant Relationship Specialty Start Date End Date Jordan Duncan MD [address] [place] [address] (Fax) PCP - General Family Medicine 10/25/22 Jordan Duncan MD [address] [place] [address] PCP - ACO Reach 08/05/23 Mitch Mello MD [address] [place], [place] [phone] Referring Physician Cardiology 05/17/23 Jr. Anuja Henson DO [address] [address] Referring Physician Orthopaedic Surgery 05/17/23 Brody Ibrahim DPM [address] [place] [address] Referring Physician Podiatry 05/17/23 Pastoral Assistant Relationship Specialty Start Date End Date Jordan Duncan MD [address] [place] [address] (Fax) PCP - General Family Medicine 10/25/22 Jordan Duncan MD [address] [place] [address] (Fax) PCP - ACO Reach 08/05/23 Mitch Mello MD [address] [place] [address] Referring Physician Cardiology 05/17/23 Jr. Anuja Henson DO [address] [address] Referring Physician Orthopaedic Surgery 05/17/23 Brody Ibrahim DPM [address] [facility] [place] [address] Referring Physician Podiatry 05/17/23 Pastoral Assistant Relationship Specialty Start Date End Date Jordan Duncan MD [address] [place] [address] (Fax) PCP - General Family Medicine 10/25/22 Jordan Duncan MD [address] [place] [address] (Fax) PCP - ACO Reach 08/05/23 Mitch Mello MD [address] [place] [address] Referring Physician Cardiology 05/17/23 Jr. Anuja Henson DO [address] [address] Referring Physician Orthopaedic Surgery 05/17/23 Brody Ibrahim DPM [address] [place] [address] Referring Physician Podiatry 05/17/23 Pastoral Assistant Relationship Specialty Start Date End Date Jordan Duncan MD [address] [place] [address] (Fax) PCP - General Family Medicine 10/25/22 Jordan Duncan MD [address] [place] [phone] (Fax) PCP - ACO Reach 08/05/23 Mitch Mello MD [address] [place] [address] Referring Physician Cardiology 05/17/23 Jr. Anuja Henson DO [address] [facility] [address] [place] [address] Referring Physician Orthopaedic Surgery 05/17/23 Brody Ibrahim DPM [address] [place], [place] [phone] Referring Physician Podiatry 05/17/23 Pastoral Assistant Relationship Specialty Start Date End Date Jordan Duncan MD [address] [place] [address] PCP - General Family Medicine 10/25/22 Jordan Duncan MD [address] [place] [address] PCP - ACO Reach 08/05/23 Mitch Mello MD [address] [place] [address] Referring Physician Cardiology 05/17/23 Jr. nAuja Henson DO [address] [facility] [address] [place] [address] Referring Physician Orthopaedic Surgery 05/17/23 Brody Ibrahim DPM [address] [place] [address] Referring Physician Podiatry 05/17/23 Reason for Visit (unrecogniz ed section and content) Reason Comments Nail care Juan Miguel Jennings is a 73 y.o. male who presents for Nail care and discuss inserts. Pt relates recently saw Dr Boss right foot ulcer, which has improved. Dr. Ruiz 05/17/2023 BS 121 A1C 6.0(04/2023)/ SS14 Reason Comments FUV Juan Miguel Jennings is a 73 y.o. male who presents for Foot Callouses. PCP: Dr. Duncan 10/27/23, A1C: 6.3 (10/04), BS: 132 SS: 14 Reason Comments Hypertension Hyperlipidemia Diabetes Reason Comments Shoe Measure Juan Miguel Jennings is a 74 y.o. male who presents for Foot Callouses. PCP: Dr. 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 male who presents for Foot Callouses. PCP: Dr. Duncan 03/27/24, A1C: 6.4 (10/04), BS: 132 SS: 14. FOR RECORDS PERTAINING TO PATIENTS WHO ARE [...] BE BASED ON THE PRIMARY CLINICAL RECORDS. [employer] [facility]. provides no warranty or guarantee of the accuracy or completeness of information in this document.
== END 2024-05-01 09:59 | disposition home or self-care (01) ==
LOC: WC 09:58
PROVIDERS: PCP Family Medicine; Visit Provider Podiatrist Foot & Ankle Surgery
DX: L84 Corns and callosities (principal); E11.40 Type 2 diabetes mellitus with diabetic neuropathy, unspecified
CPT/HCPCS: G0463

== ENCOUNTER 2024-05-08 08:57 | Outpatient (OUT) | payer MEDICARE, SELFPAY ==
--- OUTSIDE RECORDS SUMMARY | 2024-05-08 09:12 | XMS_ITS | CCD ---
Author Organization [facility] Care Team Providers Care Radiation Physicist Name Role Phone PHYSICIAN, DEFAULT Unavailable Unavailable PHYSICIAN, DEFAULT Unavailable Unavailable Diego Bartlett Primary Care Provider Jordan Duncan Primary Care Provider Jordan Duncan MD Primary Care Provider JORDAN DUNCAN Primary Care Physician Jordan Duncan MD Primary Care Provider [phone] JORDAN DUNCAN Primary Care Physician Unavail able [...] Admitting Unavailable DARRIUS BOLTON Consulting Unavailable BEENA, PETER Marion Attending Unavailable HIGHLSULAIMAN, PETER D Admitting Unavailable HEMEYER ., DR ALATORRE Primary Care Unavailable ENEDINA BOSS Attending Unavailable HIGHLSULAIMAN, PETER D Admitting Unavailable HEMEYER ., DR ALATORRE Primary Care Unavailable Hemeyer Jordan NOLASCO Primary Care Provider [phone] Mitch Mello MD Unavailable [phone] Jr. Julio Henson DO Unavailable Alexandria DALAL, Brody Xiao Unavailable WILLI SANCHEZ Referring Unavailable HEMEYER, JORDAN Brown Primary Care Unavailable WILLI SANCHEZ Referring Unavailable HEMEYER, JORDAN Brown Primary Care Unavailable Hemeyer Jordan NOLASCO Unavailable Jordan Duncan MD Primary Care Provider Jordan Duncan MD Unavailable BRODY IBRAHIM Attending Unavailable RUSHER, BRODY Xiao Attending Unavailable HEMEYER, JORDAN Brown Attending Unavailable HEMEYER, JORDAN Brown Attending Unavailable RUSHER, BRODY Xiao Attending Unavailable RUSHER, BRODY Xiao Attending Unavailable HEMEYER, JORDAN Brown Attending Unavailable RUSHER, BRODY Xiao Attending Unavailable HEMEYER, JORDAN Brown Attending Unavailable RUSHER, BRODY A Attending Unavailable RUSHER, BRODY A Attending Unavailable PAUL WEN Attending Unavailable STEVENSON, Topher R Attending Unavailable [...] to adverse reactions to drug 8 Diarrhea [place] sources) Clindamycin Drug Allergy 2 [facility] [employer] (3 sources) glipiZIDE; Translations: [GLIPIZIDE] Drug Allergy 2 Diarrhea [employer] Work Phone: (18 sources) metFORMIN; Translations: [METFORMIN] Drug Allergy 2 Diarrhea, Unknown [employer] Work Phone: (18 sources) Pravastatin; Translations: [PRAVASTATIN] Drug Allergy 2 Unknown [employer] Work Phone: (3 sources) rosuvastatin; Translations: [ROSUVASTATIN] Drug Allergy 2 [employer] Work Phone: (2 sources) Clindamycin; Translations: [CLINDAMYCIN] Drug Allergy 7 [facility] (1 source) glipiZIDE Drug Allergy 7 [facility] (1 source) metFORMIN Drug Allergy 7 [facility] (15 sources) Clindamycin Drug Allergy 2 Diarrhea [facility] (16 sources) ezetimibe; Translations: [EZETIMIBE] Drug Allergy 2 Unknown [facility] (15 sources) glipiZIDE Drug Allergy 2 Diarrhea, Unknown [facility] (15 sources) Rosuvastatin calcium Allergy to substance 1 Unknown [facility] Medications Current Medications Medication Drug Class(es) [...] Status: Ordered take 2 tablets by mo [facility] once daily losartan (COZAAR) 25 MG tablet [...] MG 24 hr tablet Indications: Atherosclerosis of [place] coronary artery of [place] heart without angina pectoris (CMS/HCC) Take 1.5 tablets (150 mg) by mouth in the morning. Do not crush or chew.. 135 tablet 1 04/20/2023 10/17/2023 Active take 2 tablets by mo [facility] twice daily in the evening metoprolol (TOPROL-XL) 25 MG XL tablet Take 2 tablets by mouth 2 times daily 100mg in the am, 50mg in the pm 0 Active Multiple Vitamin (MULTIVITAMIN ADULT PO) (1 source) Multiple Vitamin (MULTIVITAMIN ADULT PO) Take by mouth 0 Active Multiple Vitamin (multivitamin) capsule (15 sources) take 1 capsule by mo [facility] in the morning Multiple Vitamin (multivitamin) capsule [...] BID, # 180 cap(s), Refills(s) 3, Pharmacy: [facility]/pharmacy #[id number], 198, cm, 12/05/23 10:49:00 EDT, Height/Length Dosing, 150.3, kg, 12/05/23 10:49:00 EDT, Weight Dosing Start Date: 01/11/24 Status: Ordered Start: 05-26-2023 take 1 capsule by [facility] once daily tamsulosin 0.4 mg Cap 0.4 mg = 1 cap(s), Oral, Daily, # 90 cap(s), Refills(s) 3, Pharmacy: [facility]/pharmacy #[id number], 198, cm, 11/05/22 10:14:00 EDT, Height/Length Dosing, 150, kg, 11/05/22 10:14:00 EDT, Weight Dosing Start Date: 05/26/23 Status: Ordered Start: 06-18-2022 take 1 capsule by [facility] once daily tamsulosin 0.4 mg Cap 0.4 mg = 1 cap(s), Oral, Daily, # 90 cap(s), Refills(s) 3, Pharmacy: [facility]/pharmacy #[id number], 198, cm, 06/18/22 9:10:00 EST, Height/Length Dosing, 164, kg, 06/18/22 9:10:00 EST, Weight Dosing Start Date: 06/18/22 Status: Ordered take 1 capsule by [facility] every twenty-four hours in the morning tamsulosin [...] q4wk, # 10 mL, Refills(s) 1, Pharmacy: [facility]/pharmacy #[id number], 198, cm, 12/05/23 10:49:00 EDT, Height/Length Dosing, 150.3, kg, 12/05/23 10:49:00 EDT, Weight Dosing Start Date: 03/27/24 Status: Ordered Start: 01-03-2024 testosterone c ypionate 200 mg/mL IM Richelle 400 mg, IntraMuscular, q4wk, # 10 mL, Refills(s) 1, Pharmacy: [facility]/pharmacy #[id number], 198, cm, 12/05/23 10:49:00 EDT, Height/Length Dosing, 150.3, kg, 12/05/23 10:49:00 EDT, Weight Dosing Start Date: 01/03/24 Status: Ordered Start: 06-20-2023 testosterone c ypionate 200 mg/mL IM Richelle 450 mg, IntraMuscular, q4wk, # 10 mL, Refills(s) 1, Pharmacy: [facility]/pharmacy #[id number], 198, cm, 06/20/23 11:05:00 EST, Height/Length Dosing, 149, kg, 06/20/23 11:05:00 EST, Weight Dosing Start Date: 06/20/23 Status: Ordered Start: 05-09-2023 testosterone c ypionate 200 mg/mL IM Richelle 400 mg, IntraMuscular, q4wk, # 10 mL, Refills(s) 1, Pharmacy: [facility]/pharmacy #[id number], 198, cm, 11/05/22 10:14:00 EDT, Height/Length Dosing, 150, kg, 11/05/22 10:14:00 EDT, Weight Dosing Start Date: 05/09/23 Status: Ordered Start: 02-08-2023 testosterone c ypionate 200 mg/mL IM Richelle 400 mg, IntraMuscular, q4wk, # 10 mL, Refills(s) 2, Pharmacy: [facility]/pharmacy #[id number], 198, cm, 11/05/22 10:14:00 EDT, Height/Length Dosing, 150, kg, 11/05/22 10:14:00 EDT, Weight Dosing Start Date: 02/08/23 Status: Ordered Start: 08-27-2022 testosterone c ypionate 200 mg/mL IM Richelle 400 mg, IntraMuscular, q4wk, # 10 mL, Refills(s) 2, Pharmacy: [facility]/pharmacy #[id number], 198, cm, 06/18/22 9:10:00 EST, Height/Length Dosing, 164, kg, 06/18/22 9:10:00 EST, Weight Dosing Start Date: 08/27/22 Status: Ordered testosterone cypionate 200 mg/mL intramuscular solution (17 sources) Start: 02-01-2022 testosterone c ypionate 200 mg/mL intramuscular solution 400 mg = 2 mL, IntraMuscular, q4wk, 400mg once a month, # 10 mL, Refills(s) 3, Pharmacy: [facility]/pharmacy #[id number], 198, cm, 02/01/22 9:53:00 EDT, Height/Length Dosing, 166, kg, 02/01/22 9:53:00 EDT, Weight Dosing Start Date: 02/01/22 Status: Ordered Start: 11-23-2021 testosterone c ypionate 200 mg/mL intramuscular solution 350 mg, IntraMuscular, q4wk, # 10 mL, Refills(s) 1, Pharmacy: [facility]/pharmacy #[id number], 198, cm, 08/03/21 14:37:00 EST, Height/Length Dosing, 166, kg, 08/03/21 14:37:00 EST, Weight Dosing Start Date: 11/23/21 Status: Ordered Start: 08-03-2021 testosterone c ypionate 200 mg/mL intramuscular solution 350 mg, IntraMuscular, q4wk, # 10 mL, Refills(s) 1, Pharmacy: [facility]/pharmacy #[id number], 198, cm, 08/03/21 14:37:00 EST, Height/Length [...] Coronary arteriosclerosis; Translations: [Atherosclerotic heart disease of [place] coronary artery without angina pectoris] Onset: 04-08-2017 Resolved: 01-13-2023 02-19-2019 Chronic Coronary atherosclerosis and other heart disease (4 sources) History of placement of stent for [...] urinary tract symptoms] Onset: 02-01-2022 09-08-2020 Chronic Malaise and fatigue (2 sources) Other fatigue; Translations: [Other fatigue] Onset: 05-02-2024 Episodic Mycoses (6 sources) Tinea unguium; Translations: [Onychomycosis due to dermatophyte ] Onset: 04-15-2022 Episodic Open wounds of extremities (20 sources) Amputated foot; Translations: [Complete traumatic amputation of unspecified foot, level unspecified, initial encounter] Onset: 09-11-2020 01-11-2023 Chronic Osteoarthritis (20 sources) Osteoarthritis of knee; Translations: [Osteoarthritis of knee, unspecified] Onset: 02-25-2021 Resolved: 01-13-2023 01-11-2023 Chronic 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 (1 source) 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; Translations: [MCC CURRNT USE ANTICOAGULANTS] Onset: 10-12-2022 Episodic 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 (1 source) 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; Translations: [STICKER ON CURRENT USE OF ASPIRIN] Onset: 10-12-2022 Episodic 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 (1 source) senior living (current) use of oral hypoglycemic drugs; Translations: [STICKER ON USE ORAL HYPOGLYCEMIC DX] Onset: 05-09-2023 Episodic 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 (1 source) 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; Translations: [OTH STICKER ON CURRENT DRUG THERAPY] Onset: 09-20-2022 Episodic Other [...] UNSPECIFIED] Onset: 10-12-2022 Chronic Residual codes; unclassified (15 sources) Dependence [...] urination; Translations: [Nocturia] Onset: 11-15-19 Resolved : 10-10-19 24 01-01-2019 Episodic Infective arthritis and osteomyelitis (except that caused by tuberculosis or sexually transmitted disease) (20 sources) Acute osteomyelitis of metatarsal; Translations: [Other acute osteomyelitis, right ankle and foot] Onset: 08-06-19 Resolved : 01-14-2008-05-2016 Chronic Joint disorders and dislocations; trauma-related (15 sources) Derangement of left knee; Translations: [Unspecified internal derangement of left knee] Onset: 01-24-20 Resolved : 01-14-20 23 01-13-2023 Chronic Mood disorders (15 sources) Mood disorders [...] constipation; Translations: [Other constipation] Onset: 01-12-20 23 08-08-2023 Episodic Other hematologic conditions (20 sources) Erythrocytosis; [...] not elsewhere classified] Onset: 05-26-20 Resolved : 10-10-1901-11-2023 Chronic Other nervous system disorders (15 sources) Drug-induced myopathy; Translations: [Drug-induced myopathy] Onset: 11-01-1901-11-2023 Episodic Other screening for suspected conditions (not [...] Translations: [Other specified postprocedural states] Onset: 05-13-20 14 Resolved : 01-14-20 23 05-13-2014 Episodic Residual [...] 06-23-2023 Ambulatory Visit Summary Ambulatory Visit Summary KATJUANGABRIELAJUAN MIGUEL J :1950 Visit Date:04/23/2024 Ambulatory Visit Instructions Your Diagnosis Hypogonadism Your Care Team Attending Physician - KERI NOLASCO, Topher Ordoñez Primary Care Physician - DAKOTA NOLASCO, JORDAN Brown This Is Your Medications List [facility] Prescription (METOPROLOL TARTRATE 100 MG TAB) aspirin [...] AM EST With: Where: [facility] [address] [address] Tuesday 10:45 AM EST With: KERI NOLASCO, Topher Ordoñez Where: [facility] [address] [place] [address]- Medications What How Much When Instructions Unchanged [...] PSA History of colon cancer 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 Normal [facility] Ambulatory Visit Summaryon 1 Ambulatory Visit Summary Ambulatory Visit Summary JUAN MIGUEL JENNINGS :1950 Visit Date:03/27/2024 Ambulatory Visit Instructions Your Diagnosis Hypogonadism male Your Care Team Attending Physician - KERI NOLASCO, Topher Ordoñez Primary Care Physician - DAKOTA NOLASCO, JORDAN Brown This Is Your Medications List [facility] Prescription (METOPROLOL TARTRATE 100 MG TAB) aspirin [...] AM EST With: Where: [facility] [address] [address]- Tuesday 10:45 AM EST With: KERI NOLASCO, Topher Ordoñez Where: [facility] [address] [address]- Medications What How Much When Instructions Unchanged [...] History of colon cancer Hx of intermediate use of blood thinners Hyperlipidemia Hypertension Hypogonadism [...] for choosing us for your care. Normal [facility] CBC W/AUTO DIFFon 02-22-2024 ABS IMMATURE [...] on above: Result Comment: [facility] [address] [place] [address] CLIA No. [id number] CAP Accreditation No. [id number] Purification Operator Helper: Shaunna Dee M.D. Platelets (Bld) [#/Vol] 128 [...] JORDAN Brown This Is Your Medications List [facility] Prescription (METOPROLOL TARTRATE 100 MG TAB) aspirin [...] 9:30 AM EDT Where: [facility] [address] [address]- Medications What How Much When Instructions Unchanged [...] History of colon cancer Hx of intermediate use of blood thinners Hyperlipidemia Hypertension Hypogonadism [...] for choosing us for your care. Normal [facility] Urology Office/Clinic Noteon 12-05-2023 Urology Office/Clinic Note [...] 412 (ref range 264 - 916) Hgb 05/21/24 - 17.5. Advised pt level is high. [...] [facility] [address] , [place] [address]- [phone] Additional Instructions: 6 mos w/ T level [...] History of colon cancer Hx of intermediate use of blood thinners Hyperlipidemia Hypertension Hypogonadism [...] Oral, TID, (more content not included)... Normal [facility] Comment on above: Result Comment: Elec tronically Signed By: Topher STEVENSON MD\.br\Date and Time Signed: 12/05/23 11:42 EDT\.br\Electronically Co-Signed By: Erica Marin\.br\Date and Time Co-Signed: 12/05/23 11:40 EDT [facility] 11-22-2023 Lab Reports [id number] .00TIFF Normal [facility] 11-09-2023 [facility] Reports [id number] .00TIFF Normal [facility] CBC W/AUTO DIFFon 10-25-2023 ABS IMMATURE [...] Inc Comment on above: Result Comment: [facility] [address] [place] [address] CLIA No. [id number] CAP Accreditation No. [id number] Purification Operator Helper: Shaunna Dee M.D. Platelets (Bld) [#/Vol] 141 [...] Tuesday 9:00 AM EDT Where: [facility] Ambulatory Visit Summaryon 0 09-09-2023 Ambulatory Visit Summary JUAN MIGUEL JENNINGS :1950 Visit Date:09/09/2023 Ambulatory Visit Instructions Your Diagnosis Hypogonadism Your Care Team Attending Physician - KERI NOLASCO, Topher Ordoñez Primary Care Physician - DAKOTA NOLASCO, JORDAN Brown This Is Your Medications List [facility] Prescription (METOPROLOL TARTRATE 100 MG TAB) aspirin [...] Tuesday 8:30 AM EDT Where: [facility] 07-15-2023 Lab Reports [id number] .00TIFF [facility] 06-28-2023 Lab Reports [id number] .00TIFF [facility] Ambulatory Visit Summaryon 0 06-20-2023 Ambulatory Visit Summary JUAN MIGUEL JENNINGS :1950 Visit Date:06/20/2023 Ambulatory Visit Instructions Your Diagnosis Hypogonadism male Elevated PSA BPH with urinary obstruction Phimosis Urinary urgency Tests Performed Urnls Dip Stick Auto w/o Microscopy POC [id number] Your Care Team Attending Physician - KERI [...] 9:30 AM EST Where: [facility] Patient Educationon 06-20-19 24 Patient Education [...] Follow these instructions at home: ? Take bert-epj-qblaskh and prescription medicines only as told by [...] 01/22/2021 Document (more content not included)... 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 Normal [facility] Comment on above: Result Comment: Elec tronically Signed By: KERI NOLASCO, Topher Ordoñez\.br\Date and Time Signed: 06/20/23 11:28 EST\.br\Electronically Co-Signed By: Erica Marin\.br\Date and Time Co-Signed: 06/20/23 11:26 EST [facility] 05-31-2023 Lab Reports [id number] .00TIFF Normal [facility] CBC W/AUTO DIFFon 04-26-2023 ABS NEUTROPHILS [...] Inc Comment on above: Result Comment: [facility] [address] [address] CLIA No. [id number] CAP Accreditation No. [id number] Purification Operator Helper: Shaunna Dee M.D. Platelets (Bld) [#/Vol] 125 [...] [Mass/Vol] 112 mg/dL Critically high 74-106 [facility] Comment on above: Performed By: #### P OCGLUC #### [facility] [address] [place] [address] Dr. Patria Sanders CBC AUTO DIFFon 09-15-2022 BASO # 0.0 103/ul Normal 0.0-0.1 [facility] Comment on above: Performed By: #### C BC #### [facility] [address] [place] [address] Dr. Patria Sanders Basophils/100 WBC (Bld) 0.5 % Normal 0.2-2.0 [facility] Comment on above: Performed By: #### C BC #### [facility] [address] [place] [address] Dr. Patria Sanders EO # 0.3 103/ul Normal 0.0-0.7 [facility] Comment on above: Performed By: #### C BC #### [facility] [address] [place] [address] Dr. Patria Sanders Eosinophils/100 WBC (Bld) 3.2 % Normal 0.9-7.0 [facility] Comment on above: Performed By: #### C BC #### [facility] [address] [place] [address] Dr. Patria Sanders Erythrocyte distribution width (RBC) [Ratio] 14.5 % Normal 11.0-15.0 [facility] Comment on above: Performed By: #### C BC #### [facility] [address] [place] [address] Dr. Patria Sanders Hematocrit (Bld) [Volume fraction] 49.0 % Normal 42.0-54.0 [facility] Comment on above: Performed By: #### C BC #### [facility] [address] [place] [address] Dr. Patria Sanders Hemoglobin (Bld) [Mass/Vol] 16.7 g/dL Normal 14.0-18.0 [facility] Comment on above: Performed By: #### C BC #### [facility] [address] [place] [address] Dr. Patria Sanders IG # 0.03 10e3/ul Normal 0.00-0.03 [facility] Comment on above: Performed By: #### C BC #### [facility] [address] [place] [address] Dr. Patria Sanders IG % 0.4 % Normal 0.0-0.5 [facility] Comment on above: Performed By: #### C BC #### [facility] [address] [place] [address] Dr. Patria Sanders LYMPH # 1.1 103/ul Critically low 1.2-3.8 [facility] Comment on above: Performed By: #### C BC #### [facility] [address] [place] [address] Dr. Patria Sanders Lymphocytes/100 WBC (Bld) 14.5 % Critically low 20.5-60.0 [facility] Comment on above: Performed By: #### C BC #### [facility] [address] [place] [address] Dr. Patria Sanders MANUAL DIFF REQ NO Normal [facility] Comment on above: Performed By: #### C BC #### [facility] [address] [place] [address] Dr. Patria Sanders MCH (RBC) [Entitic mass] 32.6 pg Normal 25.9-34.0 [facility] Comment on above: Performed By: #### C BC #### [facility] [address] [place] [address] Dr. Patria Sanders MCHC (RBC) [Mass/Vol] 34.1 g/dL Normal 29.9-35.2 [facility] Comment on above: Performed By: #### C BC #### [facility] [address] [place] [address] Dr. Patria Sanders MCV (RBC) [Entitic vol] 95.5 fL Critically high 80.0-94.0 [facility] Comment on above: Performed By: #### C BC #### [facility] [address] [place] [address] Dr. Patria Sanders MONO # 0.8 103/ul Normal 0.3-0.8 [facility] Comment on above: Performed By: #### C BC #### [facility] [address] [place] [address] Dr. Patria Sanders Monocytes/100 WBC (Bld) 9.6 % Normal 1.7-12.0 [facility] Comment on above: Performed By: #### C BC #### [facility] [address] [place] [address] Dr. Patria Sanders NEUT # 5.6 103/ul Normal 1.4-6.5 [facility] Comment on above: Performed By: #### C BC #### [facility] [address] [place] [address] Dr. Patria Sandesr Neutrophils/100 WBC (Bld) 71.8 % Normal 43.0-75.0 [facility] Comment on above: Performed By: #### C BC #### [facility] [address] [place] [address] Dr. Patria Sanders Platelet mean volume (Bld) [Entitic vol] 11.6 fL Normal 9.5-13.5 [facility] Comment on above: Performed By: #### C BC #### [facility] [address] [place] [address] Dr. Patria Sanders PLT 154 103/ul Normal 150-450 [facility] Comment on above: Performed By: #### C BC #### [facility] [address] [address] [address] Patria Sanders RBC 5.13 106/ul Normal 4.70-6.10 [facility] Comment on above: Performed By: #### C BC #### [facility] [address] [place] [address] Dr. Patria Sanders WBC 7.8 103/ul Normal 4.0-11.0 [facility] Comment on above: Performed By: #### C BC #### [facility] [address] [place] [address] Dr. Patria Sanders PROF CHEM 8 (BAS METB)on Anion gap [Moles/Vol] 11.4 mmol/L Normal [facility] Comment on above: Performed By: #### B MP #### [facility] [address] [place] [address] Dr. Patria Sanders Calcium [Mass/Vol] 9.1 mg/dL Normal 8.5-10.1 [facility] Comment on above: Performed By: #### B MP #### [facility] [address] [place] [address] Dr. Patria Sanders Chloride [Moles/Vol] 104 mmol/L Normal 98-107 [facility] Comment on above: Performed By: #### B MP #### [facility] [address] [place] [address] Dr. Patria Sanders CO2 [Moles/Vol] 28.7 mmol/L Normal 21.0-32.0 [facility] Comment on above: Performed By: #### B MP #### [facility] [address] [place] [address] Dr. Patria Sanders Creatinine [Mass/Vol] 0.80 mg/dL Normal 0.70-1.30 [facility] Comment on above: Performed By: #### B MP #### [facility] [address] [place] [address] Dr. Patria Sanders EGFR-AF PANAMANIAN >60 Normal >=60 [facility] Comment on above: Performed By: #### B MP #### [facility] [address] [address] [address] Patria Sanders EGFR-NON AF PANAMANIAN >60 Normal >=60 [facility] Comment on above: Performed By: #### B MP #### [facility] [address] [place] [address] Dr. Patria Sanders Glucose [Mass/Vol] 101 mg/dL Normal 74-106 [facility] Comment on above: Performed By: #### B MP #### [facility] [address] [place] [address] Dr. Patria Sanders Potassium [Moles/Vol] 4.1 mmol/L Normal 3.5-5.1 [facility] Comment on above: Performed By: #### B MP #### [facility] [address] [place] [address] Dr. Patria Sanders Sodium [Moles/Vol] 140 mmol/L Normal 136-145 [facility] Comment on above: Performed By: #### B MP #### [facility] [address] [place] [address] Dr. Patria Sanders Urea nitrogen [Mass/Vol] 11.0 mg/dL Normal 7.0-18.0 [facility] Comment on above: Performed By: #### B MP #### [facility] [address] [place] [address] Dr. Patria Sanders Urea nitrogen/Creatinine [Mass ratio] 13.8 mg/mg Normal [facility] Comment on above: Performed By: #### B MP #### [facility] [facility] [address] [place] [address] Dr. Patria Sanders PROTIMEon 09-15-2022 INR Coag (PPP) [Relative time] 1.02 {INR} Normal [facility] Comment on above: Performed By: #### P TT, PT #### [facility] [address] [place] [address] Dr. Patria Sanders INR GUIDELINES SEE BELOW Normal [facility] Comment on above: Result Comment: SANTO RED INR: 2.0 - 3.0 CONDITIONS NOT LISTED BELOW 2.5 - 3.5 FOR PROSTHETIC HEART VALVE REPLACEMENT 2.5 - 3.5 RECURRENT THROMBOSIS Performed By: #### P TT, PT #### [facility] [address] [place] [address] Dr. Patria Sanders PT Coag (PPP) [Time] 10.8 s Normal 9.0-11.6 [facility] Comment on above: Performed By: #### P TT, PT #### [facility] [address] [place] [address] Dr. Patria Sanders PTTon 09-15-2022 aPTT Coag (Bld) [Time] 32.0 s Normal 22.3-36.2 [facility] Comment on above: Performed By: #### P TT, PT #### [facility] [address] [place] [address] Dr. Patria Sanders Covid-19 PCR ([facility])on 01-04 SARS-CoV-2 (COVID-19) RNA NANCY+probe Ql (Unsp spec) Not detected Normal NOT DETECTED [facility] Comment on above: Result Comment: This [...] consistent with SARS-CoV-2. Performed By: #### C [facility] #### [facility] [address] [place], [place] [address] Dr. Patria Sanders Hemoglobin A1Con 09-24-2021 EAG 128.37 Normal [facility] Comment on above: Performed By: #### A 1C #### [facility] [address], [place] [id number] HbA1c (Bld) [Mass fraction] 6.1 % High 4.0-6.0 [facility] Comment on above: Performed By: #### A 1C #### [facility] [address], [place] [id number] Testosteroneon 05-11-2021 TESTOS 314.70 ng/dL Normal 193.00-740.00 [facility] Comment on above: Performed By: #### T EST #### [facility] [address], [place] [id number] XR femur BIon 05-06-2021 XR femur BI [facility] [place] [address] XRay Report Signed Patient: Juan Miguel Jennings MR#: [id number] 25 : 1950 Acct:[id number] Age/Sex: 71 / M ADM Date: 05/06/21 Loc: ICXD Room: Type: [facility] Attending Dr: Maxwell Staley PA-C Ordering Provider: Maxwell Staley PA-C Date of Service: 05/06/21 XR/XR chest 2V*: Z01.818 ([id number]) XR/XR femur BI: Z01.818 ([id number]) XR/XR tibia/fibula BI: . Copies to: Maxwell [...] Rosanne Echeverria M.D.05/06/2021 3:12 PM Dictation Location: [place] [address] Transcribed By: [facility] 05/06/21 1512 Dictated By: Rosanne Echeverria MD 05/06/21 1506 Signed By: 05/06/21 1512 [facility] Progress Noteon 10-12-2017 HIM IP Note OR [employer] [facility] Vital Signs Date Time Vital Sign Value Performing Clinician Facility 04-23-2024 10:41-0500 Body height 198.1 cm Brody Ibrahim DPM Work Phone: [facility] 04-23-2024 10:41-0500 Body mass index (BMI) [Ratio] 40.45 kg/m2 Brody Ibrahim DPM Work Phone: [facility] 04-23-2024 10:41-0500 Body weight 158.76 kg Brody Ibrahim DPM Work Phone: [facility] 03-29-2024 12:49-0400 Body height 198.1 cm Brody Ibrahim DPM Work Phone: [facility] 03-29-2024 12:49-0400 Body mass index (BMI) [Ratio] 40.45 kg/m2 Brody Ibrahim DPM Work Phone: [facility] 03-29-2024 12:49-0400 Body weight 158.76 kg Brody Ibrahim DPM Work Phone: [facility] 03-27-2024 14:00-0400 Body height 198.1 cm Jordan Duncan MD Work Phone: [facility] 03-27-2024 14:00-0400 Body mass index (BMI) [Ratio] 40.45 kg/m2 Jordan Duncan MD Work Phone: [facility] 03-27-2024 14:00-0400 Body weight 158.76 kg Jordan Duncan MD Work Phone: [facility] 03-27-2024 14:00-0400 Diastolic blood pressure 76 mm[Hg] Jordan Duncan MD Work Phone: [facility] 03-27-2024 14:00-0400 Heart rate 71 /min Jordan Duncan MD Work Phone: [facility] 03-27-2024 14:00-0400 SaO2% (BldA) [Mass fraction] 97 % Jordan Duncan MD Work Phone: [facility] 03-27-2024 14:00-0400 Systolic blood pressure 128 mm[Hg] Jordan Duncan MD Work Phone: [facility] 03-13-2024 09:41-0400 Body height 198.1 cm Brody Ibrahim DPM Work Phone: [facility] 03-13-2024 09:41-0400 Body mass index (BMI) [Ratio] 40.45 kg/m2 Brody Ibrahim DPM Work Phone: [facility] 03-13-2024 09:41-0400 Body weight 158.76 kg Brody Ibrahim DPM Work Phone: [facility] 12-05-2023 10:38-0400 Blood Pressure Location Topherpeter STEVENSON [facility] 12-05-2023 10:38-0400 Body temperature 98.6 [degF] Topher KERI [facility] 12-05-2023 10:38-0400 Diastolic blood pressure 86 mm[Hg] Topher KERI [facility] 12-05-2023 10:38-0400 Heart rate 69 /min Topher STEVENSON [facility] 12-05-2023 10:38-0400 Respiratory rate 16 /min Topher STEVENSON [facility] 12-05-2023 10:38-0400 Systolic blood pressure 136 mm[Hg] Topher STEVENSON [facility] 07-19-2023 10:37-0500 Body height 198.1 cm Brody Ibrahim DPM Work Phone: [facility] 07-19-2023 10:37-0500 Body mass index (BMI) [Ratio] 39.87 kg/m2 Brody Ibrahim DPM Work Phone: [facility] 07-19-2023 10:37-0500 Body weight 156.49 kg Brody Ibrahim DPM Work Phone: [facility] 06-20-2023 10:33-0500 Blood Pressure Location Topher STEVENSON [facility] 06-20-2023 10:33-0500 Diastolic blood pressure 86 mm[Hg] Topher STEVENSON [facility] 06-20-2023 10:33-0500 Heart rate 70 /min Topher STEVENSON [facility] 06-20-2023 10:33-0500 Respiratory rate 16 /min Topher STEVENSON [facility] 06-20-2023 10:33-0500 Systolic blood pressure 139 mm[Hg] Topher STEVENSON [facility] 11-05-2022 10:12-0400 Blood Pressure Location Topherpeter STEVENSON [facility] 11-05-2022 10:12-0400 Diastolic blood pressure 78 mm[Hg] Topher STEVENSON [facility] 11-05-2022 10:12-0400 Heart rate 68 /min Topher STEVENSON [facility] 11-05-2022 10:12-0400 Respiratory rate 16 /min Topher STEVENSON [facility] 11-05-2022 10:12-0400 Systolic blood pressure 130 mm[Hg] Topher STEVENSON [facility] 11-03-2022 14:34-0400 Body temperature 97.5 [degF] [facility] Schedule [facility] 11-03-2022 14:34-0400 Diastolic blood pressure 77 mm[Hg] [facility] 11-03-2022 14:34-0400 Heart rate 72 /min [facility] 11-03-2022 14:34-0400 Respiratory rate 18 /min [facility] Schedule [facility] 11-03-2022 14:34-0400 Systolic blood pressure 140 mm[Hg] [facility] Schedule [facility] 06-18-2022 08:55-0500 Blood Pressure Location Topher STEVENSON [facility] 06-18-2022 08:55-0500 Diastolic blood pressure 82 mm[Hg] Topher STEVENSON [facility] 06-18-2022 08:55-0500 Heart rate 80 /min Topher STEVENSON [facility] 06-18-2022 08:55-0500 Respiratory rate 16 /min Topher STEVENSON [facility] 06-18-2022 08:55-0500 Systolic blood pressure 132 mm[Hg] Topher STEVENSON [facility] 05-17-2022 09:43-0500 Blood Pressure Location Topher STEVENSON [facility] 05-17-2022 09:43-0500 Diastolic blood pressure 92 mm[Hg] Topher STEVENSON [facility] 05-17-2022 09:43-0500 Heart rate 63 /min Topher STEVENSON [facility] 05-17-2022 09:43-0500 Systolic blood pressure 143 mm[Hg] Topher STEVENSON [facility] 02-01-2022 09:48-0400 Blood Pressure Location Topher STEVENSON [facility] 02-01-2022 09:48-0400 Diastolic blood pressure 66 mm[Hg] Topher STEVENSON [facility] 02-01-2022 09:48-0400 Heart rate 84 /min Topher STEVENSON [facility] 02-01-2022 09:48-0400 Respiratory rate 16 /min Topher STEVENSON [facility] 02-01-2022 09:48-0400 Systolic blood pressure 98 mm[Hg] Topher STEVENSON [facility] 01-28-2022 13:48-0400 Diastolic blood pressure 76 mm[Hg] [facility] 01-28-2022 13:48-0400 Heart rate 56 /min [facility] 01-28-2022 13:48-0400 Respiratory rate 18 /min [facility] 01-28-2022 13:48-0400 Systolic blood pressure 135 mm[Hg] [facility] 01-28-2022 13:25-0400 Body temperature 97.39 [degF] [facility] 10-22-2020 12:25-0400 Body temperature 97.81 [degF] [facility] Schedule [facility] [employer] Work Phone: 10-22-2020 12:25-0400 Heart rate 67 /min [facility] Schedule [facility] [employer] Work Phone: 07-27-2019 08:03-0500 Body Temperature 96.3 [degF] [facility] [place] [place] 07-27-2019 08:03-0500 BP Diastolic 80 mm[Hg] [facility] [place] [facility] [place] 07-27-2019 08:03-0500 BP Systolic 129 mm[Hg] [facility] [place] [facility] [place] 07-27-2019 08:03-0500 Pulse (Heart Rate) 63 /min [facility] [place] [place] 07-27-2019 08:03-0500 Respiratory Rate 20 /min [facility] [place] [place] 03-13-2019 08:02-0400 Body Temperature 96.69 [degF] [facility] [place] [place] 03-13-2019 08:02-0400 BP Diastolic 83 mm[Hg] [facility] [place] [facility] [place] 03-13-2019 08:02-0400 BP Systolic 162 mm[Hg] [facility] [place] 03-13-2019 08:02-0400 Pulse (Heart Rate) 74 /min [facility] [place] 03-13-2019 08:02-0400 Respiratory Rate 20 /min [facility] [place] 01-12-2019 08:03-0400 Body Temperature 96.91 [degF] [facility] [place] 01-12-2019 08:03-0400 BP Diastolic 87 mm[Hg] [facility] [place] 01-12-2019 08:03-0400 BP Systolic 152 mm[Hg] [facility] [place] [facility] [place] 01-12-2019 08:03-0400 Pulse (Heart Rate) 63 /min [facility] [place] 01-12-2019 08:03-0400 Respiratory Rate 20 /min [facility] Schedule [facility] [employer] [place] Encounters Encounter Date Encounter Type Care Provider Facility Start: 05-21-2024 ambulatory Topher Duff ty:DEBBIE Siegel Start: 05-08-2024 ambulatory Topher Duff [facility] Start: 05-02-2024 End: 05-02-2024 ambulatory [facility] Start: 04-23-2024 End: 04-23-2024 Bamboo flowstony Ibrahim DPM Work Phone: [facility] Start: 04-23-2024 End: 04-23-2024 Marek Ibrahim DPM Work Phone: [facility] Start: 04-23-2024 End: 04-23-2024 ambulatory BRODY IBRAHIM Not Available Start: 04-23-2024 End: 04-23-2024 Patient encounter procedure Topher STEVENSON [facility] Comment on above: Diabetic polyneuropa thy associated with type 2 diabetes mellitus (CMS/HCC) (Primary Dx); Nontraumatic amputation of foot, left (CMS/HCC); Nontraumatic amputation of foot, right (CMS/HCC) Start: 04-09-2024 End: 04-09-2024 Telephone encounter Brody Ibrahim DPM Work Phone: [facility] Comment on above: Advice Only (orthoti cs) Start: 03-29-2024 End: 03-29-2024 Bamboo flowsheet Brody Ibrahim DPM Work Phone: [facility] Start: 03-29-2024 End: 03-29-2024 Bamboo flowsheet Brody Ibrahim DPM Work Phone: [facility] Start: 03-29-2024 End: 03-29-2024 Postop follow up visit related to original px Brody Ibrahim DPM Work Phone: [facility] Comment on above: Diabetic polyneuropa thy [...] minutes Jordan Duncan MD Work Phone: [facility] Comment on above: Type 2 diabetes amelie itus with diabetic polyneuropathy, without long-term current use of insulin ([facility]/HCC) (Primary Dx); Acquired hallux malleus of left foot; Acquired hammer toes of both feet; Foot callus; 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); Partial nontraumatic amputation of foot, left (CMS/HCC); Venous stasis dermatitis of both lower extremities; Type 2 diabetes mellitus with diabetic microalbuminuria, without long-term current use of insulin ([facility]); Microalbuminuria; Essential hypertension ([facility]); Mixed hyperlipidemia ([facility]); Adverse reaction to statin medication; Former smoker; Morbid obesity ([facility]) Start: 03-27-2024 End: 03-27-2024 ambulatory JORDAN DUNCAN Not Available Start: 03-27-2024 End: 03-27-2024 ambulatory Topher STEVENSON Facility:[facility] Start: 03-27-2024 End: 03-27-2024 Patient encounter procedure Topher STEVENSON [facility] Start: 03-13-2024 End: 03-13-2024 Bamboo flowsheet Brody Ibrahim DPM Work Phone: [facility] Start: 03-13-2024 End: 03-13-2024 Bamboo flowsheet Brody Ibrahim DPM Work Phone: [facility] Start: 03-13-2024 End: 03-13-2024 Patient encounter procedure Brody Ibrahim DPM Work Phone: [facility] Comment on above: Acquired keratoderma (Primary Dx); Diabetic polyneuropathy associated with type 2 diabetes mellitus ([facility]/HCC); Nontraumatic amputation of foot, left (CMS/HCC); Nontraumatic amputation of foot, right ([facility]/HCC) Start: 03-13-2024 End: 03-13-2024 ambulatory BRODY IBRAHIM Not Available Start: 02-27-2024 End: 02-27-2024 ambulatory Topher STEVENSON Facility:[facility] Start: 02-27-2024 End: 02-27-2024 Patient encounter procedure [facility] Start: 01-31-2024 End: 01-31-2024 ambulatory Fernanda X Orzech Facility:[facility] Start: 01-31-2024 End: 01-31-2024 Patient encounter procedure Fernanda X Orzech [facility] Start: 01-10-2024 End: 01-10-2024 ambulatory BRODY IBRAHIM Not Available Start: 01-03-2024 End: 01-03-2024 ambulatory Topher STEVENSON Facility:[facility] [place] Start: 12-06-2023 End: 12-06-2023 ambulatory BRODY IBRAHIM Not Available Start: 12-05-2023 End: 12-05-2023 ambulatory Topher STEVENSON Facility:[facility] Start: 12-05-2023 End: 12-05-2023 Patient encounter procedure Topher STEVENSON [facility] Start: 11-09-2023 End: 11-09-[address] [facility] Start: 11-07-2023 End: 11-07-2023 ambulatory Topher STEVENSON Facility:[facility] Start: 11-07-2023 End: 11-07-2023 Patient encounter procedure Topher STEVENSON [facility] Start: 10-27-2023 End: 10-27-2023 ambulatory JORDAN DUNCAN Not Available Start: 10-12-2023 End: 10-12-2023 ambulatory JORDAN DUNCAN Not Available Start: 10-07-2023 End: 10-07-2023 ambulatory Topher STEVENSON Facility:[facility] Start: 10-07-2023 End: 10-07-2023 Patient encounter procedure Topher Ordoñez STEVENSON [facility] Start: 09-27-2023 End: 09-27-2023 ambulatory BRODY IBRAHIM Not Available Start: 09-09-2023 End: 09-09-2023 ambulatory Topher R STEVENSON Facility:[facility] Start: 09-09-2023 End: 09-09-2023 Patient encounter procedure Topher Ordoñez STEVENSON [facility] Start: 08-15-2023 End: 08-15-2023 ambulatory Topher R STEVENSON Facility:[facility] Start: 08-15-2023 End: 08-15-2023 Patient encounter procedure Topher Ordoñez STEVENSON [facility] Start: 07-19-2023 Bamboo flowsheet Brody Tyler er DPM Work Phone: [facility] Start: 07-19-2023 Bamboo flowsheet Brody Tyler er DPM Work Phone: [facility] Start: 07-19-2023 End: 07-19-2023 ambulatory BRODY IBRAHIM Not Available Start: 07-19-2023 End: 07-19-2023 Patient encounter procedure Brody Ibrahim DPM Work Phone: [facility] Comment on above: Dermatophytosis of n ail (Primary Dx); Dystrophic nail; Diabetic polyneuropathy associated with type 2 diabetes mellitus (CMS/HCC); Nontraumatic amputation of foot, right (CMS/HCC); Nontraumatic amputation of foot, left (CMS/HCC); Acquired keratoderma Start: 07-18-2023 End: 07-18-2023 ambulatory Topher R STEVENSON Facility:[facility] Start: 07-18-2023 End: 07-18-2023 Patient encounter procedure Topher STEVENSON [facility] Start: 06-20-2023 End: 06-20-2023 ambulatory Topher STEVENSON Facility:[facility] Start: 06-20-2023 End: 06-20-2023 Patient encounter procedure Topher STEVENSON [facility] Start: 05-17-2023 End: 05-17-2023 ambulatory JORDAN DUNCAN Not Available Start: 05-12-2023 End: 05-12-[address] [facility] Start: 05-09-2023 End: 05-09-2023 ambulatory Topher STEVENSON Facility:[facility] Start: 05-09-2023 End: 05-09-2023 Patient encounter procedure Topher STEVENSON [facility] Start: 04-04-2023 End: 04-04-2023 Patient encounter procedure Topher Smita STEVENSON [facility] [place] Start: 02-08-2023 End: 02-08-2023 Patient encounter procedure JORDAN DUNCAN [facility] Start: 01-03-2023 End: 01-03-2023 Patient encounter procedure Topher STEVENSON [facility] Start: 12-03-2022 End: 12-03-2022 Patient encounter procedure Topher STEVENSON [facility] Start: 11-05-2022 End: 11-05-2022 Patient encounter procedure Topher STEVENSON [facility] Start: 11-03-2022 End: 11-03-2022 Subsequent hospital visit by physician Lin[facility] On[facility] Room [address] [facility] Comment on above: Polycythemia (Primar y Dx) Start: 10-25-2022 End: 10-26-2022 ambulatory ARNOLD PEOPLES Facility:[facility] Start: 10-05-2022 End: 10-06-[address] JORDAN DUNCAN . Facility:[facility] Start: 10-05-2022 End: 10-05-2022 Patient encounter procedure Topher STEVENSON [facility] Start: 09-30-2022 End: 09-30-[address] TOPHER STEVENSON . Facility:[facility] Start: 09-27-2022 End: 09-28-2022 ambulatory ARNOLD PEOPLES Facility:[facility] Start: 09-20-2022 End: 09-21-2022 ambulatory ENEDINA BOSS Facility:[facility] Start: 09-20-2022 Encounter for preprocedural cardiovascular examination DR TOPHER STEVENSON . [facility] Start: 09-20-2022 Encounter for preprocedural laboratory examination DR TOPHER STEVENSON . [facility] Start: 09-20-2022 Encounter for preprocedural respiratory examination DR TOPHER STEVENSON . [facility] Start: 09-15-2022 End: 09-16-[address] TOPHER STEVENSON . Facility:[facility] Start: 09-15-2022 End: 09-16-2022 Encounter for preprocedural laboratory examination DR TOPHER STEVENSON . Facility:[facility] Start: 09-06-2022 End: 09-06-2022 Patient encounter procedure Topher STEVENSON [facility] Start: 06-18-2022 End: 06-18-2022 Patient encounter procedure Topher STEVENSON [facility] Start: 05-20-2022 End: 05-21-2022 ambulatory [facility] Facility:[facility] Start: 05-17-2022 End: 05-17-2022 Patient encounter procedure Topher STEVENSON [facility] Start: 04-21-2022 End: 04-22-2022 ambulatory [facility] Facility:[facility] Start: 04-21-2022 End: 04-21-2022 Patient encounter procedure Mandy Schaefer [facility] [employer] Start: 04-09-2022 End: 04-10-2022 ambulatory [facility] Facility:[facility] Start: 03-31-2022 End: 03-31-2022 Patient encounter procedure Mandy Schaefer [facility] Start: 03-22-2022 End: 03-23-2022 ambulatory [facility] Facility:[facility] Start: 03-03-2022 End: 03-03-2022 Patient encounter procedure Mandy Schaefer [facility] Start: 02-01-2022 End: 02-01-2022 Patient encounter procedure Topher STEVENSON [facility] Start: 01-28-2022 End: 01-28-2022 Subsequent hospital visit by physician Lin[facility] Onc Lab Schedule [facility] Comment on above: Polycythemia (Primar y Dx) Start: 01-18-2022 End: 01-18-[address] JORDAN DUNCAN . Facility:[facility] Start: 01-06-2022 End: 01-07-2022 ambulatory ENEDINA BOSS Facility:[facility] Start: 12-21-2021 End: 12-21-2021 Patient encounter procedure Topher STEVENSON [facility] Start: 11-23-2021 End: 11-23-2021 Patient encounter procedure Topher STEVENSON [facility] Start: 10-26-2021 End: 10-26-2021 Patient encounter procedure Topher STEVENSON [facility] Start: 09-28-2021 End: 09-28-2021 Patient encounter procedure Topher STEVENSON [facility] Start: 08-31-2021 End: 08-31-2021 Patient encounter procedure Topher STEVENSON [facility] Start: 10-22-2020 End: 10-22-2020 Subsequent hospital visit by physician Linus Med Onc Room 9 Schedule [facility] Comment on above: Polycythemia (Primar y Dx) Start: 07-27-2019 End: 07-27-2019 Subsequent hospital visit by physician Katiz Med Onc Room 9 Schedule [facility] Comment on above: Polycythemia (Primar y Dx) Start: 03-13-2019 End: 03-13-2019 Subsequent hospital visit by physician [facility] On[facility] Room 9 Schedule [facility] Comment on above: Polycythemia (Primar y Dx) Start: 01-12-2019 End: 01-12-2019 Subsequent hospital visit by physician Linus Med Onc Room 9 Schedule [facility] Start: 02-16-2018 End: 02-17-2018 Patient encounter DEFAULT PHYSICIAN Facility:[facility] Procedures Date Procedure Procedure Detail Performing Clinician Start: 09-30-2022 Circumcision Topher JENSEN Start: 12-17-2020 Colonoscopy Brody Hector pelayo DPM Work Phone: Start: 05-23-2019 foot surgery Topher JENSEN Start: 05-13-2014 History of placement of stent for coronary artery disease S/P JORY - LCX & RCA ([id number]. kabour) [facility] Schedule BACK SURGERY Topher STEVENSON Placement of stent Topher OSEGUERA RECTAL CANCER SURGERY Agustin STEVENSON RIGHT VEIN REMOVED F ROM LEG Topher STEVENSON Plan of Treatment Date Care Activity Detail Author Start: 12-17-2030 Screening for malignant neoplasm of colon [facility] Start: 09-29-2025 Glaucoma screening Diabetes: Retinopathy Screening [facility] Start: 10-04-2024 Urine screening for protein Diabetes: Urine Protein Screening [facility] Start: 09-18-2024 End: 09-18-2024 Patient encounter procedure [facility] Start: 08-25-2024 End: 03-27-2025 Comprehensive metabolic 2000 panel - Serum or Plasma Comprehensive metabolic panel Lab Routine Type 2 diabetes mellitus with diabetic polyneuropathy, without long-term current use of insulin ([facility]) Essential hypertension ([facility]/HCC) Expected: 08/25/2024, Expires: 03/27/2025 [facility] Work Phone: Comment on above: Expected: 08/25/2024, Expires: Start: 08-25-2024 End: 03-27-2025 Hemoglobin A1c/Hemoglobin.total in Blood Hemoglobin A1c Lab Routine Type 2 diabetes mellitus with diabetic polyneuropathy, without long-term current use of insulin ([facility]/HCC) Expected: 08/25/2024, Expires: 03/27/2025 [facility] Comment on above: Expected: 08/25/2024, Expires: Start: 08-25-2024 End: 03-27-2025 Lipid 1996 panel - Serum or Plasma Lipid panel Lab Routine Mixed hyperlipidemia ([facility]) Expected: 08/25/2024, Expires: 03/27/2025 [facility] Comment on above: Expected: 08/25/2024, Expires: Start: 06-21-2024 Hemoglobin A1c measurement Diabetes: Hemoglobin A1C [facility] Start: 05-17-2024 Medicare Annual Wellness (AWV) Medicare Annual Wellness (AWV) [facility] Start: 05-15-2024 End: 05-15-2024 Patient encounter procedure 05/15/2024 10:15 AM EST Office Visit [facility] [address] [place] [phone] Brody Ibrahim DPM [address] [place] [address] [facility] Start: 04-23-2024 End: 04-23-2024 Patient encounter procedure 04/23/2024 11:00 AM EST Office Visit [facility] [address] [place] [address] Brody Ibrahim DPM [address] [place] [address] [facility] Start: 04-09-2024 End: 04-09-2024 Patient encounter procedure 04/09/2024 9:30 AM EST Office Visit [facility] [address] [address] [place] [address] Jordan Duncan MD [address] [facility] [place] [address] [facility] Start: 03-29-2024 End: 03-29-2024 Patient encounter procedure 03/29/2024 1:00 PM EDT Office Visit [facility] [address] [place] [phone] Brody Ibrahim DPM [address] [place] [address] Arrived [facility] Comment on above: Arrived Start: 03-27-2024 End: 03-27-2024 Patient encounter procedure 03/27/2024 2:00 PM EDT Office Visit [facility] [address] [address] Jordan Duncan MD [address] [place] [address] Type 2 diabetes mellitus with diabetic polyneuropathy, [...] procedure 03/13/2024 9:45 AM EDT Office Visit [facility] [address] [place] [phone] Brody Ibrahim DPM [address] [place] [address] Arrived [facility] Comment on above: Arrived Start: 02-05-2024 Influenza vaccination Influenza Vaccine (#1) [facility] Start: 01-05-2024 Hemoglobin A1c measurement Diabetes: Hemoglobin A1C [facility] Start: 11-26-2023 Glaucoma screening Diabetes: Retinopathy Screening [facility] Start: 10-29-2023 GFR test (Diabetes, CKD 3-4, OR last GFR 15-59) GFR test (Diabetes, CKD 3-4, OR last GFR 15-59) [facility] Start: 10-26-2023 End: 10-26-2023 Patient encounter procedure 10/26/2023 Office Visit Oncology Newton Stevenson MD [address] [place] [address] [facility] Start: 10-12-2023 End: 10-12-2023 Patient encounter procedure 10/12/2023 9:30 AM EDT Office Visit [facility] [address] [place] [address] Jordan Duncan MD [address] [place] [address] [facility] Start: 09-27-2023 End: 09-27-2023 Patient encounter procedure 09/27/2023 11:00 AM EDT Procedure Visit [facility] [address] [place] [address] Brody Ibrahim, DP [address] [place] [address] [facility] Start: 07-14-2023 Hemoglobin A1c measurement Diabetes: Hemoglobin A1C [facility] Start: 10-20-2022 End: 10-20-2022 Patient encounter procedure 10/20/2022 Office Visit Oncology Newton Stevenson MD [address] [place] [address] [facility] Start: 09-24-2022 Hemoglobin A1c measurement A1C test (Diabetic or Prediabetic) [facility] Start: 02-04-2022 Influenza vaccination Flu vaccine (#1) [facility] Start: 11-11-2021 Urine screening for protein Diabetic microalbuminuria test [facility] Start: 10-21-2021 End: 10-21-2021 Patient encounter procedure 10/21/2021 Office Visit Oncology Newton Stevenson MD [address] [place] [address] [facility] Start: 10-16-2021 COVID-19 Vaccine (4 - Booster for Pfizer series) COVID-19 Vaccine (4 - Booster for Pfizer series) [facility] Start: 10-14-2021 Lipid panel Lipids [facility] Start: 10-24-2019 End: 10-24-2019 Office Visit [place] [facility] Start: 07-31-2019 End: 07-31-2019 Appointment 07/31/[address] [facility] Start: 04-30-2019 End: 04-30-2019 Appointment 04/30/[address] [facility] Start: 02-04-2019 Influenza vaccination Flu vaccine (#1) [place], [place] Start: 11-26-2018 Annual Wellness Visit (AWV) Annual Wellness Visit (AWV) [facility] Start: 08-17-2017 Creatinine measurement Creatinine monitoring [facility] Phone: Start: 08-17-2017 Creatinine monitoring Creatinine monitoring [place], [place] Start: 08-17-2017 Potassium monitoring Potassium monitoring [place], [place] Start: 08-04-2017 A1C test (Diabetic or Prediabetic) A1C test (Diabetic or Prediabetic) [place] Start: 08-04-2017 Hemoglobin A1c measurement A1C test (Diabetic or Prediabetic) [facility] Start: 02-10-2017 Abdominal aortic aneurysm screening AAA screen [facility] Start: 02-10-2017 Pneumococcal 65+ years Vaccine (1 of 2 - PCV13) Pneumococcal 65+ years Vaccine (1 of 2 - PCV13) [place] Start: 01-29-2017 Shingles Vaccine (2 of 3) Shingles Vaccine (2 of 3) [facility] Start: 02-10-2015 Annual Wellness Visit (AWV) Annual Wellness Visit (AWV) [place] Start: 02-10-2002 Colon cancer screen colonoscopy Colon cancer screen colonoscopy [place], [place] Start: 02-10-2002 Screening for malignant neoplasm of colon Colon cancer screen colonoscopy [facility] Work Phone: Start: 02-10-2002 Shingles Vaccine (1 of 2) Shingles Vaccine (1 of 2) [place], [place] Start: 02-10-1997 Screening for malignant neoplasm of colon [facility] Start: 02-10-1971 DTaP/Tdap/Td vaccine (1 - Tdap) DTaP/Tdap/Td vaccine (1 - Tdap) [facility] Start: 02-10-1971 Hepatitis B vaccine (1 of 3 - Risk 3-dose series) Hepatitis B vaccine (1 of 3 - Risk 3-dose series) [place] Start: 02-10-1970 Diabetic microalbuminuria test Diabetic microalbuminuria test [place] Start: 02-10-1970 Diabetic retinal exam Diabetic retinal exam [facility] Start: 02-10-1970 Glaucoma screening Diabetic retinal exam [facility] Start: 02-10-1970 Hepatitis C screening Hepatitis C screen [facility] Start: 02-10-1970 Urine screening for protein Diabetic Alb to Cr ratio (uACR) test [facility] Start: 1964 Depression Screen Depression Screen [facility] Start: 02-10-1963 DTaP/Tdap/Td vaccine (1 - Tdap) DTaP/Tdap/Td vaccine (1 - Tdap) [place] Start: 02-10-1962 [object Object] Diabetic foot exam [place] Start: 02-10-1962 Diabetic foot examination Diabetic foot exam [facility] Start: 02-10-1962 Diabetic retinal exam Diabetic retinal exam [place], [place] Start: 02-10-1962 Lipid panel [facility] Start: 02-10-1962 Lipid screen Lipid screen [place], [place] Start: 1950 Annual Wellness Visit (AWV) Annual Wellness Visit (AWV) [facility] Start: 1950 Hepatitis C screen Hepatitis C screen [place], [place] Start: 1950 Hepatitis C screening Hepatitis C screen [facility] Work Phone: Start: 1950 Screening for malignant neoplasm of colon [facility] Immunizations Immunization Date Immunization Notes Care Provider Shania walsh 03-28-2024 influenza, seasonal, injectable Brody Ibrahim DPM Work Phone: [facility] 03-28-2024 Seasonal trivalent influenza vaccine, adjuvanted, preservative free Brody Ibrahim DPM Work Phone: [facility] 02-28-2023 influenza virus vacc ine, unspecified formulation Topher STEVENSON [facility] 02-28-2023 Influenza, Seasonal, Quadrivalent, Adjuvanted Brody Ibrahim DPM Work Phone: [facility] 04-16-2022 influenza virus vacc ine, unspecified formulation Topher STEVENSON [facility] 04-16-2022 Influenza, Seasonal, Quadrivalent, Adjuvanted Brody Ibrahim DPM Work Phone: [facility] 03-23-2022 Moderna Bivalent Simmons ster Vaccination Brody Ibrahim DPM Work Phone: [facility] 03-23-2022 Moderna SARS-CoV-2 50mcg/0.5mL Booster Brody Ibrahim DPM Work Phone: [facility] 03-23-[address] 12 Years And Older Brody Ibrahim DPM Work Phone: [facility] 03-23-2022 SARS-CoV-2 (COVID-19 ) [id number] Topher STEVENSON [facility] 06-18-2021 SARS-CoV-2 (COVID-19 ) mRNA BNT-162b2 vax Topher STEVENSON [facility] 05-06-2021 influenza virus vacc ine, unspecified formulation Topher STEVENSON [facility] 05-06-2021 Influenza, Seasonal, Quadrivalent, Adjuvanted Brody Ibrahim DPM Work Phone: [facility] 05-06-2021 SARS-CoV-2 (COVID-19 ) Ad26 vaccine, recombinant Topher STEVENSON [facility] 08-28-2020 SARS-CoV-2 (COVID-19 ) mRNA BNT-162b2 vax Topher STEVENSON [facility] 08-28-2020 SARS-CoV-2, Unspecified Garry garrick Ibrahim DPM Work Phone: [facility] 08-27-2020 Pfizer Purple Cap SARS-CoV-2 Vaccination Brody Ibrahim DPM Work Phone: [facility] 08-08-2020 SARS-CoV-2 (COVID-19 ) mRNA BNT-162b2 vax Topher STEVENSON [facility] Comment on above: Result Comment: 2022: [id number] 08-08-2020 SARS-CoV-2, Unspecified Garry garrick Ibrahim DPM Work Phone: [facility] 08-07-2020 Pfizer Purple Cap SARS-CoV-2 Vaccination Brody Ibrahim DPM Work Phone: [facility] 08-04-2020 SARS-CoV-2 (COVID-19 ) Ad26 vaccine, recombinant Topher STEVENSON [facility] 03-22-2020 influenza virus vacc ine, unspecified formulation Tophre STEVENSON [facility] 03-22-2020 Influenza, Seasonal, Quadrivalent, Adjuvanted Brody Ibrahim DPM Work Phone: [facility] 03-06-2019 pneumococcal conjuga te vaccine, 13 valent Topher STEVENSON [facility] 03-05-2019 influenza virus vacc ine, unspecified formulation Topher STEVENSON [facility] 03-05-2019 influenza, high dose seasonal, preservative-free Brody Rusher DPM Work Phone: [facility] 03-05-2019 pneumococcal polysaccharide vaccine, 23 valent Topher STEVENSON [facility] 03-04-2019 Influenza, High-dose Seasonal, Quadrivalent, Preservative Free Brody Rusher DPM Work Phone: [facility] 03-04-2019 pneumococcal polysaccharide vaccine, 23 valent Brody Rusher DPM Work Phone: [facility] 03-03-2018 influenza virus vacc ine, unspecified formulation Topher STEVENSON [facility] 03-03-2018 influenza, high dose seasonal, preservative-free Brody Rusher DPM Work Phone: [facility] 03-03-2018 pneumococcal conjuga te vaccine, 13 valent Topher STEVENSON [facility] 03-03-2018 pneumococcal polysaccharide vaccine, 23 valent Brody Rusher DPM Work Phone: [facility] 03-02-2018 pneumococcal conjuga te vaccine, 13 valent Brody Rusher DPM Work Phone: [facility] 04-06-2017 influenza virus vacc ine, unspecified formulation Topher STEVENSON [facility] 04-06-2017 influenza, injectabl e, quadrivalent, preservative free Brody Rusher DPM Work Phone: [facility] 12-04-2016 pneumococcal polysaccharide vaccine, 23 valent Topher STEVENSON [facility] 12-04-2016 zoster vaccine, live Topher STEVENSON [facility] 03-06-2016 Influenza Vaccine, unspecified formulation Mthz Schedule [facility] 03-06-2016 influenza virus vacc ine, H5N1, A/[place]/ (national stockpile) Brody Ibrahim DPM Work Phone: [facility] 03-06-2016 influenza virus vacc ine, unspecified formulation Brody Ibrahim DPM Work Phone: [facility] 03-06-2016 Influenza, High-dose Seasonal, Quadrivalent, Preservative Free Brody Ibrahim DPM Work Phone: [facility] 03-06-2016 influenza, unspecifi ed formulation Topher STEVENSON [facility] 01-23-2016 influenza virus vacc ine, unspecified formulation Topher STEVENSON [facility] 01-23-2016 influenza, injectabl e, quadrivalent, preservative free Brody Ibrahim DPM Work Phone: [facility] 06-06-2015 pneumococcal polysaccharide vaccine, 23 valent Topher STEVENSON [facility] 03-23-2014 influenza virus vacc ine, unspecified formulation Topher STEVENSON [facility] 03-23-2014 influenza, seasonal, injectable Brody Ibrahim DPM Work Phone: [facility] 04-06-2013 influenza virus vacc ine, unspecified formulation Topher STEVENSON [facility] 04-06-2013 influenza, seasonal, injectable Brody Ibrahim DPM Work Phone: [facility] 04-06-2013 zoster vaccine, live Topher STEVENSON [facility] 04-05-2013 zoster vaccine, live Brody Ibrahim DPM Work Phone: [facility] 04-21-2009 novel influenza-H1N1 -09, preservative-free, injectable Brody Ibrahim DPM Work Phone: [facility] Payers Date Payer Category Payer Private Health Insurance A[employer] In mber [id number] 2022 Unknown 2017 Medicare [id number] 2017 Medicare xxxxxxxxxxx [id number] 1959 Medicare [id number] .[id number] 1959 Private Health Insurance [id number] 1.2.840.991192.1.13.239.2 .7.3.791267.315 1952 Unknown [id number] 2.16.840.1.324500.3.579.2 .593 1952 Unknown [id number] 2.16.840.1.303397.3.579.2 .593 1952 Unknown [id number] 2.16.840.1.118386.3.579.2 .593 1952 Unknown [id number] 2.16.840.1.359197.3.579.2 .593 1952 Unknown [id number] 2.16.840.1.725285.3.579.2 .593 1952 Unknown [id number] 2.16.840.1.705301.3.579.2 .593 1952 Unknown [id number] 2.16.840.1.659400.3.579.2 .593 1952 Unknown [id number] 2.16.840.1.652777.3.579.2 .593 1952 Unknown [id number] 2.16.840.1.181074.3.579.2 .593 1952 Unknown [id number] 2.16.840.1.878604.3.579.2 .593 1952 Unknown [id number] 2.16.840.1.160540.3.579.2 .593 1952 Unknown [id number] 2.16.840.1.502529.3.579.2 .593 1952 Unknown [id number] 2.16.840.1.509895.3.579.2 .173 1952 Unknown [id number] 2.16.840.1.320152.3.579.2 .173 1952 Unknown [id number] 2.16.840.1.155056.3.579.2 .1259 1952 Unknown [id number] 2.16.840.1.192433.3.579.2 .1259 1952 Unknown [id number] 2.16.840.1.444662.3.579.2 .1259 1952 Unknown [id number] 2.16.840.1.816445.3.579.2 .1259 1952 Unknown [id number] 2.16.840.1.102034.3.579.2 .1258 1952 Unknown [id number] 2.16.840.1.893855.3.579.2 .1258 1952 Unknown [id number] 2.16.840.1.088416.3.579.2 .1258 1952 Unknown [id number] 2.16.840.1.975424.3.579.2 .1258 1952 Unknown [id number] 2.16.840.1.842612.3.579.2 .1258 1952 Unknown [id number] 2.16.840.1.368910.3.579.2 .1258 1952 Unknown [id number] 2.16.840.1.966275.3.579.2 .1258 1952 Unknown [id number] 2.16.840.1.938560.3.579.2 .1952 Unknown [id number] 2.16.840.1.770408.3.579.2 .1952 Unknown [id number] 2.16.840.1.619317.3.579.2 .1952 Unknown [id number] 2.16.840.1.760861.3.579.2 .1952 Unknown [id number] 2.16.840.1.448075.3.579.2 1952 Unknown [id number] 2.16.840.1.843853.3.579.2 .1952 Unknown [id number] 2.16.840.1.530031.3.579.2 1952 Unknown [id number] 2.16.840.1.401227.3.579.2 .1952 Unknown [id number] 2.16.840.1.331140.3.579.2 .727 1952 Unknown [id number] 2.16.840.1.786196.3.579.2 .727 1952 Unknown [id number] 2.16.840.1.192432.3.579.2 .727 1952 Unknown [id number] 2.16.840.1.749326.3.579.2 .727 1952 Unknown [id number] 2.16.840.1.074979.3.579.2 .727 1952 Unknown [id number] 2.16.840.1.675060.3.579.2 .727 1952 Unknown [id number] 2.16.840.1.248952.3.579.2 .727 1952 Unknown [id number] 2.16.840.1.785313.3.579.2 .727 Medicare [id number] Social History Date Type Detail Facility Start: 10-18-2018 End: 12-06-2023 Tobacco smoking status NHIS Former smoker [place] End: 06-06-2012 History of tobacco use Current [place] Start: 10-18-2018 End: 05-17-2023 Cigarettes smoked current (pack per day) - Reported [facility] Start: 10-18-2018 End: 05-17-2023 Alcohol intake No [place] Start: 01-23-2014 Tobacco Comment quit smoking in 1999 [place] Start: 1950 Sex Assigned At Not on file [place] Start: 10-18-2018 End: 10-21-2021 Alcohol intake Current non-drinker of alcohol (finding) [place] Start: 10-22-2020 End: 12-06-2023 Tobacco use and exposure Never used [facility] Start: 01-18-2022 End: 01-28-2022 Exposure to SARS-CoV-2 (event) Not sure [facility] End: 01-01-2013 History of tobacco use Cigarette Smoker KITTY QUIROZ [employer] Work Phone: Start: 05-17-2023 End: 04-23-2024 Alcohol [...] 12-05-2023 Functional Status N/A [facility] 06-20-2023 Functional Status N/A [facility] 11-05-2022 Functional Status N/A [facility] 06-18-2022 Functional Status N/A [facility] 05-17-2022 Functional Status N/A [facility] 02-01-2022 Functional Status N/A [facility] Clinical Notes 10-22-2020 to 05-02-2024 Brody Ibrahim DPM - 04/23/2024 11:00 AM ESTPatient InstructionsTelephone Encounter - Chata Halbisen - 04/09/2024 3:53 PM ESTTelephone Encounter - Chata Halbisen - 04/09/2024 3:53 PM EST Note Date & Type Note Facility 05-02-2024 Note Patient here for 1 y ear follow up CAD and hypertension. Lipid panel has not been drawn since last visit. Denies chest pain and SOB. C/o feeling gassy and said PCP gave him Pepcid, which helps. Denies palpitations and lightheadedness, but c/o fatigue. Had Covid-19 in October 2023 and says he had it pretty bad . Review of Systems Constitutional: Positive for malaise/fatigue. Musculoskeletal: Positive for arthritis, back pain and joint pain. Gastrointestinal: Positive for flatus. All other systems reviewed and are negative. [facility] 04-23-2024 History of Present illness Narrative Images from the original note were not included. Subjective Patient ID: Juan Miguel Jennings is a 74 y.o. 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 male who presents for Foot Callouses. PCP: Dr. Dakota YARBROUGH 03/27/24, A1C: 6.4 (10/04), BS: 132 SS: [...] 2010 Geraldo Raza CATARACT EXTRACTION Left 2019 [facility] OTHER SURGICAL HISTORY 03/2017 lesions on bottom of both feet, [facility] OTHER SURGICAL HISTORY 4 stents Geraldo Stafford - 1997 OTHER SURGICAL HISTORY rectal cancer; surgery, chemo [place] and radiation [place]. OTHER SURGICAL HISTORY 09/30/2022 Dorsal Slit, RADHA Stevenson TOTAL KNEE ARTHROPLASTY Right 2014 Alexsander Brennna TOTAL KNEE ARTHROPLASTY Left 05/25/[address] [...] Brody Ibrahim DPM documented in this encounter [facility] 04-23-2024 Instructions Brody Ibrahim DPM - 04/23/2024 11:00 AM EST Instructions as noted documented in this encounter [facility] 04-09-2024 Telephone encounter Note Custom orthotics arrived droana Gruber [facility] 04-09-2024 Miscellaneous Notes Custom orthotics arrived senthil Gruber documented in this encounter [facility] 03-29-2024 History of Present illness Narrative Images [...] Measurements obtained in the weight-bearing position utilizing [facility] device. Foam impressions obtained simulated weight-bearing. Patient [...] Brody Ibrahim DPM documented in this encounter [facility] 03-29-2024 Instructions Brody Ibrahim DPM - 03/29/2024 1:00 PM EDT As noted documented in this encounter [facility] 03-27-2024 History of Present illness Narrative Images [...] with Hgb A1C. Also this is a [id number] visit for consideration for diabetic shoes. Patient [...] polyneuropathy, without long-term current use of insulin ([facility]) (Primary) Chronic problem, stable, to goal. Patient has multiple podiatric issues. The forms from Podiatry were reviewed. Patient's feet were examined. I concur with the forms from Podiatry. Diabetic shoes are medically indicated. I certify that I had a [id number] encounter with this patient at todays office visit. Due to this medical condition the patient requires DME. I certify that based on my findings The DME ordered is medically necessary for this patient. This has been discussed with the patient and/or their junior sales representative and mutually agreed upon. See [...] 6. Partial nontraumatic amputation of foot, left (CMS/[facility]) Comorbid condition currently being managed by Podiatry 7. Venous stasis dermatitis of both lower extremities Chronic problem, stable. Does not appear to be progressing significantly. Discussed the importance of keeping the area moisturized. 8. Type 2 diabetes mellitus with diabetic microalbuminuria, without long-term current use of insulin ([facility]) Chronic problem, stable, to goal. 9. Microalbuminuria [...] stratification for cardiovascular disease. 10. Essential hypertension ([facility]) In prescribing a renewal to their current [...] - Comprehensive metabolic panel 11. Mixed hyperlipidemia ([facility]) - Lipid panel; Future - Lipid panel 12. Adverse reaction to statin medication Diagnosis for exclusion for HEDIS measures for both diabetes with statin and mixed dyslipidemia with statin. 13. Former smoker Continue nonsmoking 14. Morbid obesity ([facility]) Continue lifestyle changes as able documented in this encounter [facility] 03-13-2024 History of Present illness Narrative Images [...] Brody Ibrahim DPM documented in this encounter [facility] 03-13-2024 Instructions Brody Ibrahim DPM - 03/13/2024 9:45 AM EDT As noted documented in this encounter [facility] 12-05-2023 Hospital Discharge instructions Patient Education 12/05/2023 [...] therapy. Follow these instructions at home: Take bvne-jlv-dmxjyps and prescription medicines only as told by [...] provider. Document Revised: 01/22/2021 Document Reviewed: 01/22/2021 iPAYst Patient Education 2022 [employer]ex[employer]. Follow Up Care 12/05/2023 07:35:26 With:KERI NOLASCO, Topher Ordoñez, URL Address: [facility] [address] , [place] [address]- [phone] When: Unknown [facility] 12-05-2023 Note Patient Education Urology Hypogonadism, Male [...] Follow these instructions at home: ? Take rugo-ran-evxutwv and prescription medicines only as told by [...] provider. Document Revised: (more content not included)... [facility] 11-07-2023 Hospital Discharge instructions Follow Up Care 11/07/2023 08:41:09 With:KERI NOLASCO, Topher Ordoñez, URL Address: [facility] [address] [place] [phone] When: Unknown [facility] 07-19-2023 History of Present illness Narrative Images [...] May 2023; effectively healed following treatment at [facility] wound Center. Currently relates no bleeding [...] 03/2017 lesions on bottom of both feet, [facility] OTHER SURGICAL HISTORY 4 stents KaborArnoldPeguero - 1997 OTHER SURGICAL HISTORY rectal cancer; [...] with wound right foot; effectively managed at [facility] wound care center. Care plan: conservative and [...] Brody Ibrahim DPM documented in this encounter [facility] 07-19-2023 Instructions Brody Ibrahim DPM - 07/19/2023 10:30 AM EST As noted documented in this encounter [facility] 06-20-2023 Hospital Discharge instructions Patient Education 06/20/2023 [...] therapy. Follow these instructions at home: Take nagf-yht-ihbgqkr and prescription medicines only as told by [...] provider. Document Revised: 01/22/2021 Document Reviewed: 01/22/2021 iPAYst Patient Education 2022 [employer]. Follow Up Care 02/08/2023 12:23:35 With:KERI NOLASCO, Topher R, URL Address: [facility] [address] [place] [address]- [phone] When: Unknown Comments:6 mos w/ PSA and T level (pt to also get PSA now) [facility] [place] 11-05-2022 Hospital Discharge instructions Patient Education 11/05/2022 [...] urethra. Follow these instructions at home: Take teub-ptr-mgcvhpj and prescription medicines only as told by [...] provider. Document Revised: 12/09/2021 Document Reviewed: 12/09/2021 iPAYst Patient Education 2022 [employer]exus. Follow Up Care 05/17/2022 10:46:35 With:KERI NOLASCO, Topher Ordoñez, URL Address: [facility] [address] , [place] [address]- When: Unknown [facility] 11[facility]03-2022 History of Present illness Narrative Patient [...] visit documented in this encounter KITTY QUIROZ [employer] Work Phone: 09-15-2022 Note EXAM: XR CHEST 2 V HISTORY: Pre-surgery evaluation COMPARISON: None. TECHNIQUE: PA and lateral views of the chest. FINDINGS: The cardiomediastinal silhouette is normal. No focal consolidation is identified. There is no pneumothorax. No pleural effusion is noted. The osseous structures are intact. IMPRESSION: No acute cardiopulmonary process. Electronically authenticated by: DARRIUS BOLTON Date: 2022-09-15 12:26 [facility] 06-18-2022 Hospital Discharge instructions Patient Education 06/18/2022 [...] urethra. Follow these instructions at home: Take dfai-jda-lqsbihn and prescription medicines only as told by [...] 05/23/2006 Document Revised: 04/17/2019 Document Reviewed: 06/27/2017 ElsePlainlegal Patient Education 2020 Elsevier Inc. Follow Up Care 06/14/2022 09:33:13 With:KERI NOLASCO, Topher Ordoñez, URL Address: [address] [place], [place] [phone]- When: Unknown [facility] [place] 05-17-2022 Hospital Discharge instructions Patient Education [...] urethra. Follow these instructions at home: Take kxgq-doe-nelyfrn and prescription medicines only as told by [...] 05/23/2006 Document Revised: 04/17/2019 Document Reviewed: 06/27/2017 iPAYst Patient Education 2020 [employer]exus. Follow Up Care 04/21/2022 09:42:50 With:KERI NOLASCO, Topher Ordoñez, URL Address: [facility] [address] , [place] [address]- When: Unknown [facility] 03-23-2022 Note PROCEDURE: XR FOOT R T [...] authenticated by: BRODY PAYAN Date: 2022-03-23 06:26 [facility] 02-01-2022 Hospital Discharge instructions Patient Education 02/01/2022 [...] urethra. Follow these instructions at home: Take rqzx-wck-zgeetum and prescription medicines only as told by [...] 05/23/2006 Document Revised: 04/17/2019 Document Reviewed: 06/27/2017 iPAYst Patient Education 2020 [employer] Inc. Follow Up Care 08/03/2021 15:20:11 With:KERI NOLASCO, Topher Ordoñez, URL Address: [address] [place] [phone]- When: Unknown [facility] [employer]us 10-22-2020 History of Present illness Narrative 1225 [...] ambulating without complaints documented in this encounter [facility] [employer] Work Phone: Evaluation + Plan note Future Appointments Appointment Date:09/28/2021 09:00:00 AM Scheduled Provider: Location:[facility] Appointment Type:URO Nurse Visit Appointment Date:02/01/2022 09:45:00 AM Scheduled Provider:Topher STEVENSON MD Location:[facility] Appointment Type:URO Office Visit [facility] [employer] Evaluation + Plan note Future Appointments Appointment Date:10/26/2021 09:00:00 AM Scheduled Provider: Location:[facility] Appointment Type:URO Nurse Visit Appointment Date:02/01/2022 09:45:00 AM Scheduled Provider:Topher STEVENSON MD Location:[facility] Appointment Type:URO Office Visit [facility] Evaluation + Plan note Future Appointments Appointment Date:11/23/2021 09:00:00 AM Scheduled Provider: Location:[facility] Appointment Type:URO Nurse Visit Appointment Date:02/01/2022 09:45:00 AM Scheduled Provider:Topher STEVENSON MD Location:[facility] Appointment Type:URO Office Visit [facility] [employer] Evaluation + Plan note Future Appointments Appointment Date:12/21/2021 09:00:00 AM Scheduled Provider: Location:[facility] Appointment Type:URO Nurse Visit Appointment Date:02/01/2022 09:45:00 AM Scheduled Provider:Topher STEVENSON MD [facility] Appointment Type:URO Office Visit [facility] Evaluation + Plan note Future Appointments Appointment Date:02/01/2022 09:45:00 AM Scheduled Provider:Topher STEVENSON MD Location:[facility] Appointment Type:URO Office Visit Diagnostic Tests PendingTestosterone Level Total 12/21/21 [facility] Evaluation + Plan note Future Appointments Appointment Date:03/01/2022 09:30:00 AM Scheduled Provider: Location:[facility] Appointment Type:URO Nurse Visit Diagnostic Tests PendingTestosterone Level Total 04/06/22PSA Total 03/06/22 [facility] Evaluation + Plan note Future Appointments Appointment Date:03/31/2022 08:15:00 AM Scheduled Provider: Location:[facility] Appointment Type:URO Nurse Visit [facility] Evaluation + Plan note Future Appointments Appointment Date:04/21/2022 09:15:00 AM Scheduled Provider: Location:[facility] Appointment Type:URO Nurse Visit [facility] Evaluation + Plan note Future Appointments Appointment Date:05/19/2022 08:00:00 AM Scheduled Provider:Mandy Schaefer MD Location:[facility] Appointment Type:URO Office Visit Diagnostic Tests PendingPSA Total 04/16/22Testosterone Level Total 04/16/22 [facility] Evaluation + Plan note Future Appointments Appointment Date:06/14/2022 09:00:00 AM Scheduled Provider: Location:[facility] Appointment Type:URO Nurse Visit Appointment Date:11/15/2022 08:45:00 AM Scheduled Provider:Topher STEVENSON MD [facility] Type:[facility]O Office Visit Diagnostic Tests PendingPSA Total 05/17/22Testosterone Level Total 05/17/22 [facility] Evaluation + Plan note Future Appointments Appointment Date:09/06/2022 09:00:00 AM Scheduled Provider: Location:[facility] Appointment Type:URO Nurse Visit Appointment Date:11/15/2022 08:45:00 AM Scheduled Provider:Topher STEVENSON MD Location:[facility] Appointment Type:URO Office Visit [facility] Evaluation + Plan note Future Appointments Appointment Date:10/05/2022 09:00:00 AM Scheduled Provider: Location:[facility] Appointment Type:URO Nurse Visit Appointment Date:10/29/2022 08:45:00 AM Scheduled Provider:Topher STEVENSON MD Location:[facility] Appointment Type:URO Office Visit Appointment Date:11/05/2022 09:45:00 AM Scheduled Provider:Topher STEVENSON MD [facility] Type:URO Office Visit [facility] Evaluation + Plan note Future Appointments Appointment Date:11/05/2022 09:45:00 AM Scheduled Provider:Topher STEVENSON MD Location:[facility] Appointment Type:URO Office Visit [facility] Evaluation + Plan note Future Appointments Appointment Date:12/03/2022 09:15:00 AM Scheduled Provider: [facility] App[facility] Type:URO Nurse Visit Diagnostic Tests PendingTestosterone Level Total 11/05/22PSA Total 11/05/22 [facility] Evaluation + Plan note Future Appointments Appointment Date:01/03/2023 08:15:00 AM Scheduled Provider: Location:[facility] [place] Appointment Type:URO Nurse Visit [facility] Evaluation + Plan note Future Appointments Appointment Date:01/31/2023 08:45:00 AM Scheduled Provider: Location:[facility] [place] Appointment Type:URO Nurse Visit [facility] Evaluation + Plan note Future Appointments Appointment Date:03/07/2023 08:45:00 AM Scheduled Provider: Location:[facility] [place] Appointment Type:URO Nurse Visit Appointment Date:04/04/2023 08:45:00 AM Scheduled Provider: Location:[facility] [place] Appointment Type:URO Nurse Visit Appointment Date:05/02/2023 08:45:00 AM Scheduled Provider: Location:[facility] [place] Appointment Type:URO Nurse Visit Appointment Date:05/27/2023 09:45:00 AM Scheduled Provider:Topher STEVENSON MD [facility] Appointment Type:URO Office Visit [facility] Evaluation + Plan note Future Appointments Appointment Date:05/02/2023 08:45:00 AM Scheduled Provider: Location:[facility] [place] Appointment Type:URO Nurse Visit Appointment Date:06/20/2023 10:30:00 AM Scheduled Provider:Topher STEVENSON MD Location[facility] Appointment Type:URO Office Visit [facility] Evaluation + Plan note Future Appointments Appointment Date:06/20/2023 10:30:00 AM Scheduled Provider:Topher STEVENSON MD Location:[facility] [place] Appointment Type:URO Office Visit Diagnostic Tests PendingTestosterone Level Total 05/09/23 [facility] Evaluation + Plan note Future Appointments Appointment Date:07/18/2023 09:30:00 AM Scheduled Provider: Location:[facility] [place] Appointment Type:URO Nurse Visit Diagnostic Tests PendingPSA Total 06/20/23Testosterone Level Total 06/20/23 [facility] Evaluation + Plan note Future Appointments Appointment Date:08/15/2023 10:00:00 AM Scheduled Provider: Location:[facility] Appointment Type:URO Nurse Visit [facility] Evaluation + Plan note Future Appointments Appointment Date:09/09/2023 08:30:00 AM Scheduled Provider: Location:[facility] Appointment Type:URO Nurse Visit [facility] Evaluation + Plan note Future Appointments Appointment Date:10/07/2023 08:30:00 AM Scheduled Provider: Location:[facility] Appointment Type:URO Nurse Visit [facility] Evaluation + Plan note Future Appointments Appointment Date:11/07/2023 09:00:00 AM Scheduled Provider: Location:[facility] Appointment Type:URO Nurse Visit [facility] Evaluation + Plan note Future Appointments Appointment Date:12/05/2023 10:45:00 AM Scheduled Provider:Topher STEVENSON MD Location:[facility] Appointment Type:URO Office Visit [facility] Evaluation + Plan note Future Appointments Appointment Date:01/02/2024 09:00:00 AM Scheduled Provider: Location:[facility] Appointment Type:URO Nurse Visit Diagnostic Tests PendingTestosterone Level Total 12/05/23emoglobin 12/05/23 [facility] Evaluation + Plan note Future Appointments Appointment Date:01/02/2024 09:00:00 AM Scheduled Provider: Location:[facility] Appointment Type:URO Nurse Visit [facility] Evaluation + Plan note Future Appointments Appointment Date:02/27/2024 09:00:00 AM Scheduled Provider: Location:[facility] Appointment Type:URO Nurse Visit [facility] Evaluation + Plan note Future Appointments Appointment Date:03/27/2024 09:00:00 AM Scheduled Provider: [facility] Type:URO Nurse Visit Appointment Date:04/23/2024 09:30:00 AM Scheduled Provider: Location[facility] Appointment Type:URO Nurse Visit Appointment Date:05/21/2024 10:45:00 AM Scheduled Provider:Topher STEVENSON MD Location:[facility] Appointment Type:URO Office Visit [facility] Evaluation + Plan note Future Appointments Appointment Date:04/23/2024 09:30:00 AM Scheduled Provider: Location:[facility] Appointment Type:URO Nurse Visit Appointment Date:05/21/2024 10:45:00 AM Scheduled Provider:Topher STEVENSON MD Location[facility] Appointment Type:URO Office Visit [facility] Evaluation + Plan note Future Appointments Appointment Date:05/08/2024 09:00:00 AM Scheduled Provider: Location:[facility] [place] Appointment Type:URO Nurse Visit Appointment Date:05/21/2024 10:45:00 AM Scheduled Provider:Topher STEVENSON MD [facility] Type:URO Office Visit [facility] Evaluation note Diagnosis Polycythemia- Primary Polycythemia vera documented in this encounter [employer] Phone: evaluation note* Diagnosis Polycythemia- Primary Polycythemia vera documented in this encounter KITTY QUIROZ [employer] Phone: evaluation note* Diagnosis Dermatophytosis of nail- Primary Dystrophic nail Other specified disease of nail Diabetic polyneuropathy associated with type 2 diabetes mellitus ([facility]) Nontraumatic amputation of foot, right ([facility]/H[facility]) Nontraumatic amputation of foot, left ([facility]) Acquired keratoderma documented in this encounter [facility] HealthcareEvaluation note* Diagnosis Acquired keratoderma- Primary Diabetic polyneuropathy associated with type 2 diabetes mellitus ([facility]) Nontraumatic amputation of foot, left ([facility]) Nontraumatic amputation of foot, right ([facility]) documented in this encounter [facility] HealthcareEvaluation note* Diagnosis Type 2 diabetes mellitus with diabetic polyneuropathy, without long-term current use of insulin ([facility])- Primary Acquired hallux malleus of left foot Acquired hammer toes of both feet Foot callus Corns and callosities Partial nontraumatic amputation of right foot ([facility]) Partial nontraumatic amputation of foot, left ([facility]) Venous stasis dermatitis of both lower extremities Type 2 diabetes mellitus with diabetic microalbuminuria, without long-term current use of insulin ([facility]) Microalbuminuria Proteinuria Essential hypertension ([facility]) Unspecified essential hypertension Mixed hyperlipidemia ([facility]) Mixed hyperlipidemia Adverse reaction to statin medication Former smoker Personal history of tobacco use, presenting hazards to health Morbid obesity ([facility]) Morbid obesity documented in this encounter [facility] HealthcareEvaluation note* Diagnosis Diabetic polyneuropathy associated with type 2 diabetes mellitus ([facility])- Primary Nontraumatic amputation of foot, left ([facility]) Nontraumatic amputation of foot, right ([facility]) documented in this encounter [facility] HealthcareHospital course Narrative No data available for this section [facility] Hospital Discharge instructions No data available for this section [facility] progress note No data available for this section [facility] [employer] Summary Purpose Family History No Family History [...] FoundDocuments on File Type Date Recorded Patient Bag Loader Expl anation Advance Directives and Livin g Will Advance Directives and Livin g Will 08/31/2013 9:46 AM Power of Yardage Control Clerk Power of Yardage Control Clerk 08/31/2013 9:46 AM Latest Code Status on File Code Status Date Activated Date Inactivated Comments Full Code 08/06/2016 9:06 AM 08/09/2016 5:53 PM Full Code 08/04/2016 9:28 PM 08/06/2016 9:06 AM Full Code 05/15/2015 12:42 PM 05/19/2015 6:52 PM Full Code 05/12/2015 11:22 AM 05/15/2015 12:42 PM Full Code 05/13/2014 2:36 PM 05/13/2014 9:20 PM Documents on File Type Date Recorded Patient Bag Loader Expl anation ACP-Advance Directive ACP-Power of Yardage Control Clerk ACP-Advance Directive 08/31/2013 9:46 AM ACP-Power of Yardage Control Clerk 08/31/2013 9:46 AM Documents on File Type Date Recorded Patient Bag Loader Expl anation ACP-Advance Directive 08/31/2013 9:46 AM ACP-Power of Yardage Control Clerk 08/31/2013 9:46 AM Latest Code Status on [...] Documents on File Type Date Recorded Patient Bag Loader Expl anation Advance Directives and Living Will 11/20/2019 2018-05-09 Living Wi ll Advance Directives and Living Will 11/20/2019 2018-05-09 Power Of Yardage Control Clerk History of Present Illness * Luh [place] [...] DATE CREATED AUTHOR AUTHOR'S ORGANIZ ATION 03/15/2018 [facility] DATE CREATED AUTHOR AUTHOR'S ORGANIZ ATION 07/01/2021 [facility] DATE CREATED AUTHOR AUTHOR'S ORGANIZ ATION 09/26/2021 [facility] dical Specialist DATE CREATED AUTHOR AUTHOR'S ORGANIZ ATION 11/13/2022 [facility] [facility] DATE CREATED AUTHOR AUTHOR'S ORGANIZ ATION 11/10/2023 [facility] DATE CREATED AUTHOR AUTHOR'S ORGANIZ ATION 02/25/2024 [facility] DATE CREATED AUTHOR AUTHOR'S ORGANIZ ATION 04/25/2024 [facility] dical Specialists EPIC DATE CREATED AUTHOR AUTHOR'S ORGANIZ ATION 05/05/2024 [facility] DATE CREATED AUTHOR AUTHOR'S ORGANIZ ATION 05/07/2024 [facility] (unrecognized sect ion and content) Radiation Physicist Relationship Specialty Start Date End Date Jordan Duncan MD PCP - General 07/25/19 Radiation Physicist Relationship Specialty Start Date End Date Jordan Duncan MD [address] [place] [address] PCP - General Family Medicine 10/25/22 Mitch Mello MD [address] [place] [address] Referring Physician Cardiology 05/17/23 Jr. Julio Henson DO [address] [address] Referring Physician Orthopaedic Surgery 05/17/23 Brody Ibrahim DPM [address] [place] [address] Referring Physician Podiatry 05/17/23 Radiation Physicist Relationship Specialty Start Date End Date Jordan Duncan MD [address] [place] [phone] PCP - General Family Medicine 10/25/22 Mitch Mello MD [address] [place] [address] Referring Physician Cardiology 05/17/23 Jr. Julio Henson DO [address] [address] Referring Physician Orthopaedic Surgery 05/17/23 Brody Ibrahim DPM [address] [place] [address] Referring Physician Podiatry 05/17/23 Radiation Physicist Relationship Specialty Start Date End Date Jordan Duncan MD [address] [place] [address] (Fax) PCP - General Family Medicine 10/25/22 Jordan Duncan MD [address] [phone] (Fax) PCP - ACO Reach 08/05/23 Mitch Mello MD [address] [place] [phone] Referring Physician Cardiology 05/17/23 Jr. Julio Henson DO [address] [place] [id number] Referring Physician Orthopaedic Surgery 05/17/23 Brody Ibrahim DPM [address] [place] [address] [place] [address] Referring Physician Podiatry 05/17/23 Radiation Physicist Relationship Specialty Start Date End Date Jordan Duncan MD [address] [phone] (Fax) PCP - General Family Medicine 10/25/22 Jordan Duncan MD [address] [place] [address] (Fax) PCP - ACO Reach 08/05/23 Mitch Mello MD [address] [phone] Referring Physician Cardiology 05/17/23 Jr. Julio Henson DO [address] [address] Referring Physician Orthopaedic Surgery 05/17/23 Brody Ibrahim DPM [address] [place] [address] Referring Physician Podiatry 05/17/23 Radiation Physicist Relationship Specialty Start Date End Date Jordan Duncan MD [address] [place] [address] (Fax) PCP - General Family Medicine 10/25/22 Jodran Ducnan MD [address] [phone] (Fax) PCP - ACO Reach 08/05/23 Mitch Mello MD [address] [place] [phone] Referring Physician Cardiology 05/17/23 Jr. Julio Henson DO [address] [address] Referring Physician Orthopaedic Surgery 05/17/23 Brody Ibrahim DPM [address] [place] [address] Referring Physician Podiatry 05/17/23 Radiation Physicist Relationship Specialty Start Date End Date Jordan uDncan MD [address] [place] [address] (Fax) PCP - General Family Medicine 10/25/22 Jordan Duncan MD [address] [place] [address] (Fax) PCP - ACO Reach 08/05/23 Mitch Mello MD [address] [place], [place] [phone] Referring Physician Cardiology 05/17/23 Jr. Julio Henson DO [address] [facility] [address] [place] [address] Referring Physician Orthopaedic Surgery 05/17/23 Brody Ibrahim DPM [address] [place] [address] Referring Physician Podiatry 05/17/23 Radiation Physicist Relationship Specialty Start Date End Date Jordan Duncan MD [address] [place] [address] (Fax) PCP - General Family Medicine 10/25/22 Jordan Duncan MD [address] [place] [address] (Fax) PCP - ACO Reach 08/05/23 Mitch Mello MD [address] [place], [place] [phone] Referring Physician Cardiology 05/17/23 Jr. Julio Henson DO [address] [address] Referring Physician Orthopaedic Surgery 05/17/23 Brody Ibrahim DPM [address] [place] [address] Referring Physician Podiatry 05/17/23 Radiation Physicist Relationship Specialty Start Date End Date Jordan Duncan MD [address] [place] [address] (Fax) PCP - General Family Medicine 10/25/22 Jordan Duncan MD [address] [place] [phone] (Fax) PCP - ACO Reach 08/05/23 Mitch Mello MD [address] [place] [address] Referring Physician Cardiology 05/17/23 Jr. Julio Henson DO [address] [address] Referring Physician Orthopaedic Surgery 05/17/23 Brody Ibrahim DPM [address] [place] [address] Referring Physician Podiatry 05/17/23 Radiation Physicist Relationship Specialty Start Date End Date Jordan Duncan MD [address] [place] [address] (Fax) PCP - General Family Medicine 10/25/22 Jordan Duncan MD [address] [address] (Fax) PCP - ACO Reach 08/05/23 Mitch Mello MD [address] [place] [address] Referring Physician Cardiology 05/17/23 Jr. Julio Henson DO [address] [facility] [address] [place] [address] Referring Physician Orthopaedic Surgery 05/17/23 Brody Ibrahim DPM [address] [place], [place] [phone] Referring Physician Podiatry 05/17/23 Radiation Physicist Relationship Specialty Start Date End Date Jordan Duncan MD [address] [place] [address] PCP - General Family Medicine 10/25/22 Jordan Duncan MD [address] [place] [address] PCP - ACO Reach 08/05/23 Mitch Mello MD [address] [place] [address] Referring Physician Cardiology 05/17/23 Jr. Julio Henson DO [address] [facility] [address] [place] [address] Referring Physician Orthopaedic Surgery 05/17/23 Brody Ibrahim DPM [address] 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 [...] BE BASED ON THE PRIMARY CLINICAL RECORDS. [facility]. provides no warranty or guarantee of the accuracy or completeness of information in this document.
[2024-05-08 11:11] LABS: Chol HDL Ratio 4.5; Cholesterol 189 mg/dL (<=200); HDL Cholesterol 42 mg/dL (40-60); LDL Cholesterol Calculated 124.2 mg/dL; Triglycerides 114 mg/dL (<=150); VLDL CHOLESTEROL 22.8 mg/dL
== END 2024-05-08 08:58 | disposition home or self-care (01) ==
LOC: LAB 09:00
PROVIDERS: PCP Family Medicine; Visit Provider Nurse Practitioner Family
DX: I25.10 Atherosclerotic heart disease of native coronary artery without angina pectoris (principal)
CPT/HCPCS: 36415; 80061

== ENCOUNTER 2024-05-08 09:07 | Outpatient (OUT) | payer MEDICARE, SELFPAY ==
--- OUTSIDE RECORDS SUMMARY | 2024-05-08 09:29 | XMS_ITS | CCD ---
Author Organization [facility] Care Team Providers Care Crew Truck Driver Name Role Phone PHYSICIAN, DEFAULT Unavailable Unavailable PHYSICIAN, DEFAULT Unavailable Unavailable Diego Bartlett Primary Care Provider Jordan Duncan Primary Care Provider Jordan Duncan MD Primary Care Provider [phone] JORDAN DUNCAN Primary Care Physician Jordan Duncan MD Primary Care Provider JORDAN DUNCAN Primary Care Physician Unavail able Jordan Duncan MD Primary Care Provider [phone] ENEDINA BOSS Attending Unavailable HEMEYER ., DR [...] Unavailable Hemeyer Jordan NOLASCO Primary Care Provider [phone] Mitch Mello MD Unavailable Jr. Julio Henson DO Unavailable Alexandria DALAL, Brody Xiao Unavailable WILLI SANCHEZ Referring Unavailable HEMEYER, JORDAN Brown Primary Care Unavailable WILLI SANCHEZ Referring Unavailable HEMEYER, JORDAN Brown Primary Care Unavailable Hemeyer Jordan NOLASCO Unavailable [phone] Jordan Duncan MD Primary Care Provider Jordan [...] to adverse reactions to drug 8 Diarrhea [facility] [place] (2 sources) Clindamycin Drug Allergy 2 [facility] (3 sources) glipiZIDE; Translations: [GLIPIZIDE] Drug Allergy 2 Diarrhea [facility] Work Phone: (18 sources) metFORMIN; Translations: [METFORMIN] Drug Allergy 2 Diarrhea, Unknown [facility] Work Phone: (18 sources) Pravastatin; Translations: [PRAVASTATIN] Drug Allergy 2 Unknown [facility] Work Phone: (3 sources) rosuvastatin; Translations: [ROSUVASTATIN] Drug Allergy 2 [facility] Work Phone: (2 sources) Clindamycin; Translations: [CLINDAMYCIN] Drug Allergy 7 [facility] (1 source) glipiZIDE Drug Allergy 7 [facility] (1 source) metFORMIN Drug Allergy 7 [facility] (15 sources) Clindamycin Drug Allergy 2 Diarrhea [facility] (16 sources) ezetimibe; Translations: [EZETIMIBE] Drug Allergy 2 Unknown [facility] (15 sources) glipiZIDE Drug Allergy 2 Diarrhea, Unknown [facility] Healthcare (15 sources) Rosuvastatin calcium Allergy to substance 1 Unknown [facility] Medications Current Medications Medication Drug [...] Status: Ordered take 2 tablets by mo [facility] once daily losartan (COZAAR) 25 MG tablet [...] MG 24 hr tablet Indications: Atherosclerosis of [place] coronary artery of [place] heart without angina pectoris (CMS/HCC) Take 1.5 tablets (150 mg) by mouth in the morning. Do not crush or chew.. 135 tablet 1 04/20/2023 10/17/2023 Active take 2 tablets by mo [facility] twice daily in the evening metoprolol (TOPROL-XL) 25 MG XL tablet Take 2 tablets by mouth 2 times daily 100mg in the am, 50mg in the pm 0 Active Multiple Vitamin (MULTIVITAMIN ADULT PO) (1 source) Multiple Vitamin (MULTIVITAMIN ADULT PO) Take by mouth 0 Active Multiple Vitamin (multivitamin) capsule (15 sources) take 1 capsule by mo [facility] in the morning Multiple Vitamin (multivitamin) capsule [...] BID, # 180 cap(s), Refills(s) 3, Pharmacy: [facility]/pharmacy #[id number], 198, cm, 12/05/23 10:49:00 EDT, Height/Length Dosing, 150.3, kg, 12/05/23 10:49:00 EDT, Weight Dosing Start Date: 01/11/24 Status: Ordered Start: 05-26-2023 take 1 capsule by [facility] once daily tamsulosin 0.4 mg Cap 0.4 mg = 1 cap(s), Oral, Daily, # 90 cap(s), Refills(s) 3, Pharmacy: [facility]/pharmacy #[id number], 198, cm, 11/05/22 10:14:00 EDT, Height/Length Dosing, 150, kg, 11/05/22 10:14:00 EDT, Weight Dosing Start Date: 05/26/23 Status: Ordered Start: 06-18-2022 take 1 capsule by [facility] once daily tamsulosin 0.4 mg Cap 0.4 mg = 1 cap(s), Oral, Daily, # 90 cap(s), Refills(s) 3, Pharmacy: [facility]/pharmacy #[id number], 198, cm, 06/18/22 9:10:00 EST, Height/Length Dosing, 164, kg, 06/18/22 9:10:00 EST, Weight Dosing Start Date: 06/18/22 Status: Ordered take 1 capsule by [facility] every twenty-four hours in the morning tamsulosin [...] q4wk, # 10 mL, Refills(s) 1, Pharmacy: [facility]/pharmacy #[id number], 198, cm, 12/05/23 10:49:00 EDT, Height/Length Dosing, 150.3, kg, 12/05/23 10:49:00 EDT, Weight Dosing Start Date: 03/27/24 Status: Ordered Start: 01-03-2024 testosterone c ypionate 200 mg/mL IM Richelle 400 mg, IntraMuscular, q4wk, # 10 mL, Refills(s) 1, Pharmacy: [facility]/pharmacy #[id number], 198, cm, 12/05/23 10:49:00 EDT, Height/Length Dosing, 150.3, kg, 12/05/23 10:49:00 EDT, Weight Dosing Start Date: 01/03/24 Status: Ordered Start: 06-20-2023 testosterone c ypionate 200 mg/mL IM Richelle 450 mg, IntraMuscular, q4wk, # 10 mL, Refills(s) 1, Pharmacy: [facility]/pharmacy #[id number], 198, cm, 06/20/23 11:05:00 EST, Height/Length Dosing, 149, kg, 06/20/23 11:05:00 EST, Weight Dosing Start Date: 06/20/23 Status: Ordered Start: 05-09-2023 testosterone c ypionate 200 mg/mL IM Richelle 400 mg, IntraMuscular, q4wk, # 10 mL, Refills(s) 1, Pharmacy: [facility]/pharmacy #[id number], 198, cm, 11/05/22 10:14:00 EDT, Height/Length Dosing, 150, kg, 11/05/22 10:14:00 EDT, Weight Dosing Start Date: 05/09/23 Status: Ordered Start: 02-08-2023 testosterone c ypionate 200 mg/mL IM Richelle 400 mg, IntraMuscular, q4wk, # 10 mL, Refills(s) 2, Pharmacy: [facility]/pharmacy #[id number], 198, cm, 11/05/22 10:14:00 EDT, Height/Length Dosing, 150, kg, 11/05/22 10:14:00 EDT, Weight Dosing Start Date: 02/08/23 Status: Ordered Start: 08-27-2022 testosterone c ypionate 200 mg/mL IM Richelle 400 mg, IntraMuscular, q4wk, # 10 mL, Refills(s) 2, Pharmacy: [facility]/pharmacy #[id number], 198, cm, 06/18/22 9:10:00 EST, Height/Length Dosing, 164, kg, 06/18/22 9:10:00 EST, Weight Dosing Start Date: 08/27/22 Status: Ordered testosterone cypionate 200 mg/mL intramuscular solution (17 sources) Start: 02-01-2022 testosterone c ypionate 200 mg/mL intramuscular solution 400 mg = 2 mL, IntraMuscular, q4wk, 400mg once a month, # 10 mL, Refills(s) 3, Pharmacy: [facility]/pharmacy #[id number], 198, cm, 02/01/22 9:53:00 EDT, Height/Length Dosing, 166, kg, 02/01/22 9:53:00 EDT, Weight Dosing Start Date: 02/01/22 Status: Ordered Start: 11-23-2021 testosterone c ypionate 200 mg/mL intramuscular solution 350 mg, IntraMuscular, q4wk, # 10 mL, Refills(s) 1, Pharmacy: [facility]/pharmacy #[id number], 198, cm, 08/03/21 14:37:00 EST, Height/Length Dosing, 166, kg, 08/03/21 14:37:00 EST, Weight Dosing Start Date: 11/23/21 Status: Ordered Start: 08-03-2021 testosterone c ypionate 200 mg/mL intramuscular solution 350 mg, IntraMuscular, q4wk, # 10 mL, Refills(s) 1, Pharmacy: [facility]/pharmacy #[id number], 198, cm, 08/03/21 14:37:00 EST, [...] Coronary arteriosclerosis; Translations: [Atherosclerotic heart disease of [place] coronary artery without angina pectoris] Onset: 04-08-2017 [...] 01-13-2023 01-11-2023 Chronic 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 (1 source) exterminator (current) use of anticoagulants; Translations: [RESIDENTIAL CURRNT USE ANTICOAGULANTS] Onset: 10-12-2022 Episodic 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 (1 source) exterminator (current) use of aspirin; Translations: [MULTICULTURAL SERVICES LIBRARIAN CURRENT USE OF ASPIRIN] Onset: 10-12-2022 Episodic 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 (1 source) alf (current) use of oral hypoglycemic drugs; Translations: [MULTICULTURAL SERVICES LIBRARIAN USE ORAL HYPOGLYCEMIC DX] Onset: 05-09-2023 Episodic 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 (1 source) Other manager terminal (current) drug therapy; Translations: [OTH MULTICULTURAL SERVICES LIBRARIAN CURRENT DRUG THERAPY] Onset: 09-20-2022 Episodic Other [...] JORDAN Brown This Is Your [place]ations [place] [facility] [place]METOPROLOL TARTRATE 100 [...] AM EST With: Where: [facility] [address] [address] Tuesday 10:45 AM EST With: KERI NOLASCO, Topher Ordoñez Where: [facility] [address] [place] [address]- Medications What How Much When Instructions Unchanged [...] PSA History of colon cancer Hx of manager terminal use of blood thinners Hyperlipidemia Hypertension Hypogonadism [...] for choosing us for your care. Normal [facility] Ambulatory Visit Summaryon 1 Ambulatory Visit Summary Ambulatory Visit Summary JUAN MIGUEL JENNINGS :1950 Visit Date:03/27/2024 Ambulatory Visit Instructions Your Diagnosis Hypogonadism male Your Care Team Attending Physician - KERI NOLASCO, Topher Ordoñez Primary Care Physician - DAKOTA NOLASCO, JORDAN Brown This Is Your Medications List [facility] [place] (METOPROLOL TARTRATE 100 [...] AM EST With: Where: [facility] [address] [address]- Tuesday 10:45 AM EST With: KERI NOLASCO, Topher Ordoñez Where: [facility] [address] [address]- Medications What How Much When Instructions Unchanged [...] PSA History of colon cancer Hx of senior care use of blood thinners Hyperlipidemia Hypertension Hypogonadism [...] for choosing us for your care. Normal [facility] CBC W/AUTO DIFFon 02-22-2024 ABS IMMATURE [...] on above: Result Comment: [facility] [address] [place] [address] CLIA No. [id number] CAP Accreditation No. [id number] Loan Processing Supervisor: Shaunna Dee M.D. Platelets (Bld) [#/Vol] 128 [...] JORDAN Brown This Is Your Medications List [facility] [place] (METOPROLOL TARTRATE 100 [...] 9:30 AM EDT Where: [facility] [address] [address]- Medications What How Much When Instructions Unchanged [...] PSA History of colon cancer Hx of senior care use of blood thinners Hyperlipidemia Hypertension Hypogonadism [...] for choosing us for your care. Normal [facility] Urology Office/Clinic Noteon 12-05-2023 Urology Office/Clinic [...] [facility] [address] , [place] [address]- [phone] Additional Instructions: 6 mos w/ T level [...] PSA History of colon cancer Hx of senior care use of blood thinners Hyperlipidemia Hypertension Hypogonadism [...] Oral, TID, (more content not included)... Normal [facility] Comment on above: Result Comment: Elec tronically Signed By: Topher STEVENSON MD\.br\Date and Time Signed: 12/05/23 11:42 EDT\.br\Electronically Co-Signed By: Erica Marin\.br\Date and Time Co-Signed: 12/05/23 11:40 EDT [facility] 11-22-2023 Lab Reports [id number] .00TIFF Normal [facility] 11-09-2023 Lab Reports [id number] .00TIFF Normal [facility] CBC W/AUTO DIFFon 10-25-2023 ABS IMMATURE [...] Inc Comment on above: Result Comment: [facility] [address] [place] [address] CLIA No. [id number] CAP Accreditation No. [id number] Loan Processing Supervisor: Shaunna Dee M.D. Platelets (Bld) [#/Vol] 141 [...] Tuesday 9:00 AM EDT Where: [facility] Ambulatory Visit Summaryon 0 09-09-2023 Ambulatory Visit Summary JUAN MIGUEL EJNNINGS :1950 Visit Date:09/09/2023 Ambulatory Visit Instructions Your Diagnosis Hypogonadism Your Care Team Attending Physician - KERI NOLASCO, Topher Ordoñez Primary Care Physician - DAKOTA NOLASCO, JORDAN Brown This Is Your Medications [place] [facility] [place] (METOPROLOL TARTRATE 100 MG TAB) aspirin (aspirin 81 mg oral tablet) brimonidine-brinzolam agil ophthalmic (Simbrinza) cyclobenzaprine (cyclobenzaprine 10 mg Tab) [...] Tuesday 8:30 AM EDT Where: [facility] 07-15-2023 Lab Reports [id number] .00TIFF [facility] 06-28-2023 Lab Reports [id number] .00TIFF [facility] Ambulatory Visit Summaryon 0 06-20-2023 Ambulatory Visit Summary JUAN MIGUEL JENNINGS :1950 Visit Date:06/20/2023 Ambulatory Visit Instructions Your Diagnosis Hypogonadism male Elevated PSA BPH with urinary obstruction Phimosis Urinary urgency Tests Performed Urnls Dip Stick Auto w/o Microscopy POC 19045 Your Care Team Attending Physician - KERI [...] 9:30 AM EST Where: [facility] Patient Educationon 06-20-19 24 Patient Education Urology [...] Follow these instructions at home: ? Take ihby-fcn-kszikof and prescription medicines only as told by [...] 01/22/2021 Document (more content not included)... Normal [facility] Urology Office/Clinic Noteon 06-20-2023 Urology Office/Clinic [...] [facility] [address], [place] [address]- [phone] Additional Instructions: 6 mos w/ PSA and [...] PSA History of colon cancer Hx of manager terminal use of blood thinners Hyperlipidemia Hypertension Hypogonadism [...] 1 tab(s (more content not included)... Normal [facility] Comment on above: Result Comment: Elec tronically Signed By: KERI NOLASCO, Topher Ordoñez\.br\Date and Time Signed: 06/20/23 11:28 EST\.br\Electronically Co-Signed By: Erica Marin\.br\Date and Time Co-Signed: 06/20/23 11:26 EST [facility] 05-31-2023 Lab Reports [id number] .00TIFF Normal [facility] CBC W/AUTO DIFFon 04-26-2023 ABS NEUTROPHILS [...] Inc Comment on above: Result Comment: [facility] [address] [address] CLIA No. [id number] CAP Accreditation No. [id number] Loan Processing Supervisor: Shaunna Dee M.D. Platelets (Bld) [#/Vol] 125 [...] [Mass/Vol] 112 mg/dL Critically high 74-106 T [facility] Comment on above: Performed By: #### P OCGLUC #### [facility] [address] [place] [address] Dr. Patria Sanders CBC AUTO DIFFon 09-15-2022 BASO # 0.0 103/ul Normal 0.0-0.1 [facility] Comment on above: Performed By: #### C BC #### [facility] [address] [place] [address] Dr. Patria Sanders Basophils/100 WBC (Bld) 0.5 % Normal 0.2-2.0 [facility] Comment on above: Performed By: #### C BC #### [facility] [address] [place] [address] Dr. Patria Sanders EO # 0.3 103/ul Normal 0.0-0.7 [facility] Comment on above: Performed By: #### C BC #### [facility] [address] [place] [address] Dr. Patria Sanders Eosinophils/100 WBC (Bld) 3.2 % Normal 0.9-7.0 [facility] Comment on above: Performed By: #### C BC #### [facility] [address] [place] [address] Dr. Patria Sanders Erythrocyte distribution width (RBC) [Ratio] 14.5 % Normal 11.0-15.0 [facility] Comment on above: Performed By: #### C BC #### [facility] [address] [place] [address] Dr. Patria Sanders Hematocrit (Bld) [Volume fraction] 49.0 % Normal 42.0-54.0 [facility] Comment on above: Performed By: #### C BC #### [facility] [address] [place] [address] Dr. Patria Sanders Hemoglobin (Bld) [Mass/Vol] 16.7 g/dL Normal 14.0-18.0 [facility] Comment on above: Performed By: #### C BC #### [facility] [address] [place] [address] Dr. Patria Sanders IG # 0.03 10e3/ul Normal 0.00-0.03 [facility] Comment on above: Performed By: #### C BC #### [facility] [address] [place] [address] Dr. Patria Sanders IG % 0.4 % Normal 0.0-0.5 [facility] Comment on above: Performed By: #### C BC #### [facility] [address] [place] [address] Dr. Patria Sanders LYMPH # 1.1 103/ul Critically low 1.2-3.8 [facility] Comment on above: Performed By: #### C BC #### [facility] [address] [place] [address] Dr. Patria Sanders Lymphocytes/100 WBC (Bld) 14.5 % Critically low 20.5-60.0 [facility] Comment on above: Performed By: #### C BC #### [facility] [address] [place] [address] Dr. Patria Sanders MANUAL DIFF REQ NO Normal [facility] Comment on above: Performed By: #### C BC #### [facility] [address] [place] [address] Dr. Patria Sanders MCH (RBC) [Entitic mass] 32.6 pg Normal 25.9-34.0 [facility] Comment on above: Performed By: #### C BC #### [facility] [address] [place] [address] Dr. Patria Sanders MCHC (RBC) [Mass/Vol] 34.1 g/dL Normal 29.9-35.2 [facility] Comment on above: Performed By: #### C BC #### [facility] [address] [place] [address] Dr. Patria Sanders MCV (RBC) [Entitic vol] 95.5 fL Critically high 80.0-94.0 [facility] Comment on above: Performed By: #### C BC #### [facility] [address] [place] [address] Dr. Patria Sanders MONO # 0.8 103/ul Normal 0.3-0.8 [facility] Comment on above: Performed By: #### C BC #### [facility] [address] [place] [address] Dr. Patria Sanders Monocytes/100 WBC (Bld) 9.6 % Normal 1.7-12.0 [facility] Comment on above: Performed By: #### C BC #### [facility] [address] [place] [address] Dr. Patria Sanders NEUT # 5.6 103/ul Normal 1.4-6.5 [facility] Comment on above: Performed By: #### C BC #### [facility] [address] [place] [address] Dr. Patria Sanders Neutrophils/100 WBC (Bld) 71.8 % Normal 43.0-75.0 [facility] Comment on above: Performed By: #### C BC #### [facility] [address] [place] [address] Dr. Patria Sanders Platelet mean volume (Bld) [Entitic vol] 11.6 fL Normal 9.5-13.5 [facility] Comment on above: Performed By: #### C BC #### [facility] [address] [place] [address] Dr. Patria Sanders PLT 154 103/ul Normal 150-450 [facility] Comment on above: Performed By: #### C BC #### [facility] [address] [address] [address] Patria Sanders RBC 5.13 106/ul Normal 4.70-6.10 [facility] Comment on above: Performed By: #### C BC #### [facility] [address] [place] [address] Dr. Patria Sanders WBC 7.8 103/ul Normal 4.0-11.0 [facility] Comment on above: Performed By: #### C BC #### [facility] [address] [place] [address] Dr. Patria Sanders PROF CHEM 8 (BAS METB)on Anion gap [Moles/Vol] 11.4 mmol/L Normal [facility] Comment on above: Performed By: #### B MP #### [facility] [address] [place] [address] Dr. Patria Sanders Calcium [Mass/Vol] 9.1 mg/dL Normal 8.5-10.1 [facility] Comment on above: Performed By: #### B MP #### [facility] [address] [place] [address] Dr. Patria Sanders Chloride [Moles/Vol] 104 mmol/L Normal 98-107 [facility] Comment on above: Performed By: #### B MP #### [facility] [address] [place] [address] Dr. Patria Sanders CO2 [Moles/Vol] 28.7 mmol/L Normal 21.0-32.0 [facility] Comment on above: Performed By: #### B MP #### [facility] [address] [place] [address] Dr. Patria Sanders Creatinine [Mass/Vol] 0.80 mg/dL Normal 0.70-1.30 [facility] Comment on above: Performed By: #### B MP #### [facility] [address] [place] [address] Dr. Patria Sanders EGFR-AF MAURITIAN >60 Normal >=60 [facility] Comment on above: Performed By: #### B MP #### [facility] [address] [address] [address] Patria Sanders EGFR-NON AF MAURITIAN >60 Normal >=60 [facility] Comment on above: Performed By: #### B MP #### [facility] [address] [place] [address] Dr. Patria Sanders Glucose [Mass/Vol] 101 mg/dL Normal 74-106 [facility] Comment on above: Performed By: #### B MP #### [facility] [address] [place] [address] Dr. Patria Sanders Potassium [Moles/Vol] 4.1 mmol/L Normal 3.5-5.1 [facility] Comment on above: Performed By: #### B MP #### [facility] [address] [place] [address] Dr. Patria Sanders Sodium [Moles/Vol] 140 mmol/L Normal 136-145 [facility] Comment on above: Performed By: #### B MP #### [facility] [address] [place] [address] Dr. Patria Sanders Urea nitrogen [Mass/Vol] 11.0 mg/dL Normal 7.0-18.0 [facility] Comment on above: Performed By: #### B MP #### [facility] [address] [place] [address] Dr. Patria Sanders Urea nitrogen/Creatinine [Mass ratio] 13.8 mg/mg Normal [facility] Comment on above: Performed By: #### B MP #### [facility] [address] [place] [address] Dr. Patria Sanders PROTIMEon 09-15-2022 INR Coag (PPP) [Relative time] 1.02 {INR} Normal [facility] Comment on above: Performed By: #### P TT, PT #### [facility] [address] [place] [address] Dr. Patria Sanders INR GUIDELINES SEE BELOW Normal [facility] Comment on above: Result Comment: SANTO RED INR: 2.0 - 3.0 CONDITIONS NOT LISTED BELOW 2.5 - 3.5 FOR PROSTHETIC HEART VALVE REPLACEMENT 2.5 - 3.5 RECURRENT THROMBOSIS Performed By: #### P TT, PT #### [facility] [address] [place] [address] Dr. Patria Sanders PT Coag (PPP) [Time] 10.8 s Normal 9.0-11.6 [facility] Comment on above: Performed By: #### P TT, PT #### [facility] [address] [place] [address] Dr. Patria Sanders PTTon 09-15-2022 aPTT Coag (Bld) [Time] 32.0 s Normal 22.3-36.2 [facility] Comment on above: Performed By: #### P TT, PT #### [facility] [address] [place] [address] Dr. Patria Sanders Covid-19 PCR ([facility])on 01-04 SARS-CoV-2 (COVID-19) RNA NANCY+probe Ql (Unsp spec) Not detected Normal NOT DETECTED [facility] Comment on above: Result Comment: This test is not yet approved or cleared by the [place] FDA. When there are no FDA-approved or cleared tests available, and other criteria are met, FDA can make tests available under an emergency access mechanism called an Emergency Use Authorization (EUA). The EUA for this test is supported by the [place] of Health and Human Service's (HHS's) declaration [...] consistent with SARS-CoV-2. Performed By: #### C [facility] #### [facility] [address] [place], [place] [address] Dr. Patria Sanders Hemoglobin A1Con 09-24-2021 EAG 128.37 Normal [facility] Comment on above: Performed By: #### A 1C #### [facility] [address], [place] [id number] HbA1c (Bld) [Mass fraction] 6.1 % High 4.0-6.0 [facility] [facility] Comment on above: Performed By: #### A 1C #### [facility] [address], [place] [id number] Testosteroneon 05-11-2021 TESTOS 314.70 ng/dL Normal 193.00-740.00 [facility] Specialist Comment on above: Performed By: #### T EST #### [facility] [address], [place] [id number] XR femur BIon 05-06-2021 XR femur BI [facility] [place] [address] XRay Report Signed Patient: Juan Miguel Jennings MR#: [id number] [birth year] : 1950 Acct:[id number] Age/Sex: 71 / M ADM Date: 05/06/21 Loc: ICXD Room: Type: [facility] Attending Dr: Maxwell Staley PA-C Ordering Provider: Maxwell Staley PA-C Date of Service: 05/06/21 XR/XR chest 2V*: Z01.818 ([id number]) XR/XR femur BI: Z01.818 ([id number]) XR/XR tibia/fibula BI: . Copies to: Maxwell [...] Rosanne Echeverria M.D.05/06/2021 3:12 PM Dictation Location: [place] [address] Transcribed By: [facility] 05/06/21 1512 Dictated By: Rosanne Echeverria MD 05/06/21 1506 Signed By: 05/06/21 1512 [facility] Progress Noteon 10-12-2017 HIM IP Note OR Hall Cleaner [facility] Vital Signs Date Time Vital Sign Value Performing Clinician Facility 04-23-2024 10:41-0500 Body height 198.1 cm Brody Ibrahim DPM Work Phone: [facility] 04-23-2024 10:41-0500 Body mass index (BMI) [Ratio] 40.45 kg/m2 Brody Ibrahim DPM Work Phone: [facility] 04-23-2024 10:41-0500 Body weight 158.76 kg Brody Ibrahim DPM Work Phone: [facility] 03-29-2024 12:49-0400 Body height 198.1 cm Brody Ibrahim DPM Work Phone: [facility] 03-29-2024 12:49-0400 Body mass index (BMI) [Ratio] 40.45 kg/m2 Brody Ibrahim DPM Work Phone: [facility] 03-29-2024 12:49-0400 Body weight 158.76 kg Brody Ibrahim DPM Work Phone: [facility] 03-27-2024 14:00-0400 Body height 198.1 cm Jordan Duncan MD Work Phone: [facility] 03-27-2024 14:00-0400 Body mass index (BMI) [Ratio] 40.45 kg/m2 Jordan Duncan MD Work Phone: [facility] 03-27-2024 14:00-0400 Body weight 158.76 kg Jordan Duncan MD Work Phone: [facility] 03-27-2024 14:00-0400 Diastolic blood pressure 76 mm[Hg] Jordan Duncan MD Work Phone: [facility] 03-27-2024 14:00-0400 Heart rate 71 /min Jordan Duncan MD Work Phone: [facility] 03-27-2024 14:00-0400 SaO2% (BldA) [Mass fraction] 97 % Jordan Duncan MD Work Phone: [facility] 03-27-2024 14:00-0400 Systolic blood pressure 128 mm[Hg] Jordan Duncan MD Work Phone: [facility] 03-13-2024 09:41-0400 Body height 198.1 cm Brody Ibrahim DPM Work Phone: [facility] 03-13-2024 09:41-0400 Body mass index (BMI) [Ratio] 40.45 kg/m2 Brody Ibrahim DPM Work Phone: [facility] 03-13-2024 09:41-0400 Body weight 158.76 kg Brody Ibrahim DPM Work Phone: [facility] 12-05-2023 10:38-0400 Blood Pressure Location Topherpeter STEVENSON [facility] 12-05-2023 10:38-0400 Body temperature 98.6 [degF] Topher KERI [facility] 12-05-2023 10:38-0400 Diastolic blood pressure 86 mm[Hg] Topher KERI [facility] 12-05-2023 10:38-0400 Heart rate 69 /min Topher STEVENSON [facility] 12-05-2023 10:38-0400 Respiratory rate 16 /min Topher STEVENSON [facility] 12-05-2023 10:38-0400 Systolic blood pressure 136 mm[Hg] Topher STEVENSON [facility] 07-19-2023 10:37-0500 Body height 198.1 cm Brody Ibrahim DPM Work Phone: [facility] 07-19-2023 10:37-0500 Body mass index (BMI) [Ratio] 39.87 kg/m2 Brody Ibrahim DPM Work Phone: [facility] 07-19-2023 10:37-0500 Body weight 156.49 kg Brody Ibrahim DPM Work Phone: [facility] 06-20-2023 10:33-0500 Blood Pressure Location Topher STEVENSON [facility] 06-20-2023 10:33-0500 Diastolic blood pressure 86 mm[Hg] Topher STEVENSON [facility] 06-20-2023 10:33-0500 Heart rate 70 /min Topher STVEENSON [facility] 06-20-2023 10:33-0500 Respiratory rate 16 /min Topher STEVENSON [facility] 06-20-2023 10:33-0500 Systolic blood pressure 139 mm[Hg] Topher STEVENSON [facility] 11-05-2022 10:12-0400 Blood Pressure Location Topherpeter STEVENSON [facility] 11-05-2022 10:12-0400 Diastolic blood pressure 78 mm[Hg] Topher STEVENSON [facility] 11-05-2022 10:12-0400 Heart rate 68 /min Topher STEVENSON [facility] 11-05-2022 10:12-0400 Respiratory rate 16 /min Topher STEVENSON [facility] 11-05-2022 10:12-0400 Systolic blood pressure 130 mm[Hg] Topher STEVENSON [facility] 11-03-2022 14:34-0400 Body temperature 97.5 [degF] Mthz Schedule [facility] 11-03-2022 14:34-0400 Diastolic blood pressure 77 mm[Hg] Mth[facility] Schedule [facility] 11-03-2022 14:34-0400 Heart rate 72 /min [facility]th[facility] Schedule [facility] 11-03-2022 14:34-0400 Respiratory rate 18 /min Mth[facility] Schedule [facility] 11-03-2022 14:34-0400 Systolic blood pressure 140 mm[Hg] Mthz Schedule [facility] 06-18-2022 08:55-0500 Blood Pressure Location Topher STEVENSON [facility] 06-18-2022 08:55-0500 Diastolic blood pressure 82 mm[Hg] Topher STEVENSON [facility] 06-18-2022 08:55-0500 Heart rate 80 /min Topher STEVENSON [facility] 06-18-2022 08:55-0500 Respiratory rate 16 /min Topher STEVENSON [facility] 06-18-2022 08:55-0500 Systolic blood pressure 132 mm[Hg] Topher STEVENSON [facility] 05-17-2022 09:43-0500 Blood Pressure Location Topher STEVENSON [facility] 05-17-2022 09:43-0500 Diastolic blood pressure 92 mm[Hg] Topher STEVENSON [facility] 05-17-2022 09:43-0500 Heart rate 63 /min Topher STEVENSON [facility] 05-17-2022 09:43-0500 Systolic blood pressure 143 mm[Hg] Topher STEVENSON [facility] 02-01-2022 09:48-0400 Blood Pressure Location Topher STEVENSON [facility] 02-01-2022 09:48-0400 Diastolic blood pressure 66 mm[Hg] Topher STEVENSON [facility] 02-01-2022 09:48-0400 Heart rate 84 /min Topher STEVENSON [facility] 02-01-2022 09:48-0400 Respiratory rate 16 /min Topher STEVENSON [facility] 02-01-2022 09:48-0400 Systolic blood pressure 98 mm[Hg] Topher STEVENSON [facility] 01-28-2022 13:48-0400 Diastolic blood pressure 76 mm[Hg] [facility] [employer] 01-28-2022 13:48-0400 Heart rate 56 /min [facility] Lab Schedule [facility] [employer] 01-28-2022 13:48-0400 Respiratory rate 18 /min [facility] [employer] 01-28-2022 13:48-0400 Systolic blood pressure 135 mm[Hg] [facility] 01-28-2022 13:25-0400 Body temperature 97.39 [degF] [facility] [employer] 10-22-2020 12:25-0400 Body temperature 97.81 [degF] Mthz Schedule [facility] Work Phone: 10-22-2020 12:25-0400 Heart rate 67 /min [facility] Schedule [facility] Work Phone: 07-27-2019 08:03-0500 Body Temperature 96.3 [degF] [facility] Schedule [facility] [place] 07-27-2019 08:03-0500 BP Diastolic 80 mm[Hg] [facility] [place] [facility] [place] 07-27-2019 08:03-0500 BP Systolic 129 mm[Hg] [facility] Schedule [facility] [place] [facility] [place] 07-27-2019 08:03-0500 Pulse (Heart Rate) 63 /min [facility] [place] [place] 07-27-2019 08:03-0500 Respiratory Rate 20 /min [facility] [place] [place] 03-13-2019 08:02-0400 Body Temperature 96.69 [degF] [facility] [place] [place] 03-13-2019 08:02-0400 BP Diastolic 83 mm[Hg] Mth[facility] Schedule [facility] , [place] 03-13-2019 08:02-0400 BP Systolic 162 mm[Hg] [facility] Schedule [facility] [place] 03-13-2019 08:02-0400 Pulse (Heart Rate) 74 /min [facility] Schedule [facility] 03-13-2019 08:02-0400 Respiratory Rate 20 /min [facility] [place] 01-12-2019 08:03-0400 Body Temperature 96.91 [degF] [facility] [place] 01-12-2019 08:03-0400 BP Diastolic 87 mm[Hg] Mth[facility] Schedule [facility] [place] 01-12-2019 08:03-0400 BP Systolic 152 mm[Hg] Mthz Schedule [facility] , [place] 01-12-2019 08:03-0400 Pulse (Heart Rate) 63 /min [facility] [place] 01-12-2019 08:03-0400 Respiratory Rate 20 /min [facility] Schedule [facility] [place] Encounters Encounter Date Encounter Type Care Provider Facility Start: 05-21-2024 ambulatory Topher Duff ty:DEBBIE Siegel Start: 05-08-2024 ambulatory Topher Duff ty:[facility] Start: 05-02-2024 End: 05-02-2024 ambulatory [facility] Start: 04-23-2024 End: 04-23-2024 Bamboo flowstony Ibrahim DPM Work Phone: [facility] Start: 04-23-2024 End: 04-23-2024 Marek Ibrahim DPM Work Phone: [facility] Start: 04-23-2024 End: 04-23-2024 ambulatory BRODY IBRAHIM Not Available Start: 04-23-2024 End: 04-23-2024 Patient encounter procedure Topher STEVENSON [facility] Comment on above: Diabetic polyneuropa thy associated with type 2 diabetes mellitus (CMS/HCC) (Primary Dx); Nontraumatic amputation of foot, left (CMS/HCC); Nontraumatic amputation of foot, right (CMS/HCC) Start: 04-09-2024 End: 04-09-2024 Telephone encounter Brody Ibrahim DPM Work Phone: [facility] Comment on above: Advice Only (orthoti cs) Start: 03-29-2024 End: 03-29-2024 Bamboo flowsheet Brody Ibrahim DPM Work Phone: [facility] Start: 03-29-2024 End: 03-29-2024 Bamboo flowsheet Brody Ibrahim DPM Work Phone: [facility] Start: 03-29-2024 End: 03-29-2024 Postop follow up visit related to original px Brody Ibrahim DPM Work Phone: [facility] Comment on above: Diabetic polyneuropa thy [...] polyneuropathy, without long-term current use of insulin ([facility]/HCC) (Primary Dx); Acquired hallux malleus of left foot; Acquired hammer toes of both feet; Foot callus; 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); Partial nontraumatic amputation of foot, left (CMS/HCC); Venous stasis dermatitis of both lower extremities; Type 2 diabetes mellitus with diabetic microalbuminuria, without long-term current use of insulin ([facility]); Microalbuminuria; Essential hypertension ([facility]); Mixed hyperlipidemia ([facility]); Adverse reaction to statin medication; Former smoker; Morbid obesity ([facility]) Start: 03-27-2024 End: 03-27-2024 ambulatory JORDAN DUNCAN Not Available Start: 03-27-2024 End: 03-27-2024 ambulatory Topher STEVENSON Facility:[facility] Start: 03-27-2024 End: 03-27-2024 Patient encounter procedure Topher STEVENSON [facility] Start: 03-13-2024 End: 03-13-2024 Bamboo flowsheet Brody Ibrahim DPM Work Phone: [facility] Start: 03-13-2024 End: 03-13-2024 Bamboo flowsheet Brody Ibrahim DPM Work Phone: [facility] Start: 03-13-2024 End: 03-13-2024 Patient encounter procedure Brody Ibrahim DPM Work Phone: [facility] Comment on above: Acquired keratoderma (Primary Dx); Diabetic polyneuropathy associated with type 2 diabetes mellitus ([facility]/HCC); Nontraumatic amputation of foot, left (CMS/HCC); Nontraumatic amputation of foot, right ([facility]/HCC) Start: 03-13-2024 End: 03-13-2024 ambulatory BRODY IBRAHIM Not Available Start: 02-27-2024 End: 02-27-2024 ambulatory Topher STEVENSON Facility:[facility] Start: 02-27-2024 End: 02-27-2024 Patient encounter procedure [facility]EVENSON [facility] Start: 01-31-2024 End: 01-31-2024 ambulatory Fernanda X Orzech Facility:[facility] [place] Start: 01-31-2024 End: 01-31-2024 Patient encounter procedure Fernanda X Orzech [facility] Start: 01-10-2024 End: 01-10-2024 ambulatory BRODY IBRAHIM Not Available Start: 01-03-2024 End: 01-03-2024 ambulatory Topher STEVENSON Facility:[facility] [place] Start: 12-06-2023 End: 12-06-2023 ambulatory BRODY IBRAHIM Not Available Start: 12-05-2023 End: 12-05-2023 ambulatory Topher STEVENSON Facility:[facility] [place] Start: 12-05-2023 End: 12-05-2023 Patient encounter procedure Topher STEVENSON [facility] Start: 11-09-2023 End: 11-09-2023 ambulatory General acute hospital Start: 11-07-2023 End: 11-07-2023 ambulatory Topher STEVENSON Facility:[facility] [place] Start: 11-07-2023 End: 11-07-2023 Patient encounter procedure Topher STEVENSON [facility] Start: 10-27-2023 End: 10-27-2023 ambulatory JORDAN DUNCAN Not Available Start: 10-12-2023 End: 10-12-2023 ambulatory JORDAN DUNCAN Not Available Start: 10-07-2023 End: 10-07-2023 ambulatory Topher STEVENSON Facility:[facility] Start: 10-07-2023 End: 10-07-2023 Patient encounter procedure Topher Ordoñez STEVENSON [facility] Start: 09-27-2023 End: 09-27-2023 ambulatory BRODY IBRAHIM Not Available Start: 09-09-2023 End: 09-09-2023 ambulatory Topher R STEVENSON Facility:[facility] Start: 09-09-2023 End: 09-09-2023 Patient encounter procedure Topher Ordoñez STEVENSON [facility] Start: 08-15-2023 End: 08-15-2023 ambulatory Topher R STEVENSON Facility:[facility] Start: 08-15-2023 End: 08-15-2023 Patient encounter procedure Topher Ordoñez STEVENSON [facility] Start: 07-19-2023 Bamboo flowsheet Brody Tyler er DPM Work Phone: [facility] Start: 07-19-2023 Bamboo flowsheet Brody Tyler er DPM Work Phone: [facility] Start: 07-19-2023 End: 07-19-2023 ambulatory BRODY IBRAHIM Not Available Start: 07-19-2023 End: 07-19-2023 Patient encounter procedure Brody Ibrahim DPM Work Phone: [facility] Comment on above: Dermatophytosis of n ail (Primary Dx); Dystrophic nail; Diabetic polyneuropathy associated with type 2 diabetes mellitus (CMS/HCC); Nontraumatic amputation of foot, right (CMS/HCC); Nontraumatic amputation of foot, left (CMS/HCC); Acquired keratoderma Start: 07-18-2023 End: 07-18-2023 ambulatory Topher R STEVENSON Facility:[facility] [place] Start: 07-18-2023 End: 07-18-2023 Patient encounter procedure Topher STEVENSON [facility] Start: 06-20-2023 End: 06-20-2023 ambulatory Topher STEVENSON Facility:[facility] Start: 06-20-2023 End: 06-20-2023 Patient encounter procedure Topher STEVENSON [facility] [place] Start: 05-17-2023 End: 05-17-2023 ambulatory JORDAN DUNCAN Not Available Start: 05-12-2023 End: 05-12-2023 ambulatory General acute hospital Start: 05-09-2023 End: 05-09-2023 ambulatory Topher STEVENSON Facility:[facility] Start: 05-09-2023 End: 05-09-2023 Patient encounter procedure Topher STEVENSON [facility] Start: 04-04-2023 End: 04-04-2023 Patient encounter procedure Topher Smita STEVENSON [facility] [place] Start: 02-08-2023 End: 02-08-2023 Patient encounter procedure JORDAN DUNCAN [facility] [place] Start: 01-03-2023 End: 01-03-2023 Patient encounter procedure Topher STEVENSON [facility] Start: 12-03-2022 End: 12-03-2022 Patient encounter procedure Topher STEVENSON [facility] Start: 11-05-2022 End: 11-05-2022 Patient encounter procedure Topher STEVENSON [facility] Start: 11-03-2022 End: 11-03-2022 Subsequent hospital visit by physician [facility] Room 7 Schedule [facility] Comment on above: Polycythemia (Primar y Dx) Start: 10-25-2022 End: 10-26-2022 ambulatory ARNOLD PEOPLES Facility:[facility] Start: 10-05-2022 End: 10-06-[address] JORDAN DUNCAN . Facility:[facility] Start: 10-05-2022 End: 10-05-2022 Patient encounter procedure Topher STEVENSON [facility] Start: 09-30-2022 End: 09-30-[address] TOPHER STEVENSON . Facility:[facility] Start: 09-27-2022 End: 09-28-2022 ambulatory ARNOLD PEOPLES Facility:[facility] Start: 09-20-2022 End: 09-21-2022 ambulatory ENEDINA BOSS Facility:[facility] Start: 09-20-2022 Encounter for preprocedural cardiovascular examination DR TOPHER STEVENSON . [facility] Start: 09-20-2022 Encounter for preprocedural laboratory examination DR TOPHER STEVENSON . [facility] Start: 09-20-2022 Encounter for preprocedural respiratory examination DR TOPHER STEVENSON . [facility] Start: 09-15-2022 End: 09-16-[address] TOPHER STEVENSON . Facility:[facility] Start: 09-15-2022 End: 09-16-2022 Encounter for preprocedural laboratory examination DR TOPHER STEVENSON . Facility:[facility] Start: 09-06-2022 End: 09-06-2022 Patient encounter procedure Topher STEVENSON [facility] Start: 06-18-2022 End: 06-18-2022 Patient encounter procedure Topher STEVENSON [facility] [employer] Start: 05-20-2022 End: 05-21-2022 ambulatory [facility] Facility:[facility] Start: 05-17-2022 End: 05-17-2022 Patient encounter procedure Topher STEVENSON [facility] Start: 04-21-2022 End: 04-22-2022 ambulatory [facility] Facility:[facility] Start: 04-21-2022 End: 04-21-2022 Patient encounter procedure Mandy Schaefer [facility] [employer] Start: 04-09-2022 End: 04-10-2022 ambulatory [facility] Facility:[facility] Start: 03-31-2022 End: 03-31-2022 Patient encounter procedure Mandy Schaefer [facility] [employer] Start: 03-22-2022 End: 03-23-2022 ambulatory [facility] Facility:[facility] Start: 03-03-2022 End: 03-03-2022 Patient encounter procedure Mandy Schaefer [facility] Start: 02-01-2022 End: 02-01-2022 Patient encounter procedure Topher STEVENSON [facility] [employer] Start: 01-28-2022 End: 01-28-2022 Subsequent hospital visit by physician [facility] Lab Schedule [facility] Comment on above: Polycythemia (Primar y Dx) Start: 01-18-2022 End: 01-18-[address] JORDAN DUNCAN . Facility:[facility] Start: 01-06-2022 End: 01-07-2022 ambulatory ENEDINA BOSS Facility:[facility] Start: 12-21-2021 End: 12-21-2021 Patient encounter procedure Topher STEVENSON [facility] Start: 11-23-2021 End: 11-23-2021 Patient encounter procedure Topher STEVENSON [facility] Start: 10-26-2021 End: 10-26-2021 Patient encounter procedure Topher STEVENSON [facility] Start: 09-28-2021 End: 09-28-2021 Patient encounter procedure Topher STEVENSON [facility] Start: 08-31-2021 End: 08-31-2021 Patient encounter procedure Topher STEVENSON [facility] Start: 10-22-2020 End: 10-22-2020 Subsequent hospital visit [...] 02-16-2018 End: 02-17-2018 Patient encounter DEFAULT PHYSICIAN Facility:[facility] Procedures Date Procedure Procedure Detail Performing Clinician Start: 09-30-2022 Circumcision Topher JENSEN Start: 12-17-2020 Colonoscopy Brody Hector pelayo DPM Work Phone: Start: 05-23-2019 foot surgery Topher JENSEN Start: 05-13-2014 History of placement of stent for coronary artery disease S/P JORY - LCX & RCA ([id number]. kabour) Mthz Schedule BACK SURGERY Topher STEVENSON Placement of stent Topher OSEGUER[facility] SURGERY Agustin STEVENSON RIGHT VEIN REMOVED F ROM LEG Topher STEVENSON Plan of Treatment Date Care Activity Detail Author Start: 12-17-2030 Screening for malignant neoplasm of colon [facility] Start: 09-29-2025 Glaucoma screening Diabetes: Retinopathy Screening [facility] Start: 10-04-2024 Urine screening for protein Diabetes: Urine Protein Screening [facility] Start: 09-18-2024 End: 09-18-2024 Patient encounter procedure [facility] Start: 08-25-2024 End: 03-27-2025 Comprehensive metabolic 2000 panel - Serum or Plasma Comprehensive metabolic panel Lab Routine Type 2 diabetes mellitus with diabetic polyneuropathy, without long-term current use of insulin ([facility]) Essential hypertension ([facility]/HCC) Expected: 08/25/2024, Expires: 03/27/2025 [facility] Work Phone: Comment on above: Expected: 08/25/2024, Expires: Start: 08-25-2024 End: 03-27-2025 Hemoglobin A1c/Hemoglobin.total in Blood Hemoglobin A1c Lab Routine Type 2 diabetes mellitus with diabetic polyneuropathy, without long-term current use of insulin ([facility]/HCC) Expected: 08/25/2024, Expires: 03/27/2025 [facility] Comment on above: Expected: 08/25/2024, Expires: Start: 08-25-2024 End: 03-27-2025 Lipid 1996 panel - Serum or Plasma Lipid panel Lab Routine Mixed hyperlipidemia ([facility]) Expected: 08/25/2024, Expires: 03/27/2025 [facility] Comment on above: Expected: 08/25/2024, Expires: Start: 06-21-2024 Hemoglobin A1c measurement Diabetes: Hemoglobin A1C [facility] Start: 05-17-2024 Medicare Annual Wellness (AWV) Medicare Annual Wellness (AWV) [facility] Start: 05-15-2024 End: 05-15-2024 Patient encounter procedure 05/15/2024 10:15 AM EST Office Visit [facility] [address] [place] [phone] Brody Ibrahim DPM [address] [place] [address] [facility] Start: 04-23-2024 End: 04-23-2024 Patient encounter procedure 04/23/2024 11:00 AM EST Office Visit [facility] [address] [place] [address] Brody Ibrahim DPM [address] [place] [address] [facility] Start: 04-09-2024 End: 04-09-2024 Patient encounter procedure 04/09/2024 9:30 AM EST Office Visit [facility] [address] [address] [place] [address] Jordan Duncan MD [address] [facility] [place] [address] [facility] Start: 03-29-2024 End: 03-29-2024 Patient encounter procedure 03/29/2024 1:00 PM EDT Office Visit [facility] [address] [place] [phone] Brody Ibrahim DPM [address] [place] [address] Arrived [facility] Comment on above: Arrived Start: 03-27-2024 End: 03-27-2024 Patient encounter procedure 03/27/2024 2:00 PM EDT Office Visit [facility] [address] [address] Jordan Duncan MD [address] [place] [address] Type 2 diabetes mellitus with diabetic polyneuropathy, [...] procedure 03/13/2024 9:45 AM EDT Office Visit [facility] [address] [place] [phone] Brody Ibrahim DPM [address] [place] [address] Arrived [facility] Comment on above: Arrived Start: 02-05-2024 Influenza vaccination Influenza Vaccine (#1) [facility] Start: 01-05-2024 Hemoglobin A1c measurement Diabetes: Hemoglobin A1C [facility] Start: 11-26-2023 Glaucoma screening Diabetes: Retinopathy Screening [facility] Start: 10-29-2023 GFR test (Diabetes, CKD 3-4, OR last GFR 15-59) GFR test (Diabetes, CKD 3-4, OR last GFR 15-59) [facility] Start: 10-26-2023 End: 10-26-2023 Patient encounter procedure 10/26/2023 Office Visit Oncology Newton Stevenson MD [address] [place] [address] [facility] Start: 10-12-2023 End: 10-12-2023 Patient encounter procedure 10/12/2023 9:30 AM EDT Office Visit [facility] [address] [place] [address] Jordan Duncan MD [address] [place] [address] [facility] Start: 09-27-2023 End: 09-27-2023 Patient encounter procedure 09/27/2023 11:00 AM EDT Procedure Visit [facility] [address] [place] [address] Brody Ibrahim, DP [address] [place] [address] [facility] Start: 07-14-2023 Hemoglobin A1c measurement Diabetes: Hemoglobin A1C [facility] Start: 10-20-2022 End: 10-20-2022 Patient encounter procedure 10/20/2022 Office Visit Oncology Newton Stevenson MD [address] [place] [address] [facility] Start: 09-24-2022 Hemoglobin A1c measurement A1C test (Diabetic or Prediabetic) [facility] Start: 02-04-2022 Influenza vaccination Flu vaccine (#1) [facility] Start: 11-11-2021 Urine screening for protein Diabetic microalbuminuria test [facility] Start: 10-21-2021 End: 10-21-2021 Patient encounter procedure 10/21/2021 Office Visit Oncology Newton Stevenson MD [address] [place] [address] [facility] Start: 10-16-2021 COVID-19 Vaccine (4 - Booster for Pfizer series) COVID-19 Vaccine (4 - Booster for Pfizer series) [facility] Start: 10-14-2021 Lipid panel Lipids [facility] Start: 10-24-2019 End: 10-24-2019 Office Visit [place] [facility] Start: 07-31-2019 End: 07-31-2019 Appointment 07/31/2019 Appointment Infusion Therapy [facility] Start: 04-30-2019 End: 04-30-2019 Appointment 04/30/2019 Appointment Infusion Therapy [facility] Start: 02-04-2019 Influenza vaccination Flu vaccine (#1) [place], [place] Start: 11-26-2018 Annual Wellness Visit (AWV) Annual Wellness Visit (AWV) [facility] Start: 08-17-2017 Creatinine measurement Creatinine monitoring [facility] [email or web address] Phone: Start: 08-17-2017 Creatinine monitoring Creatinine monitoring [place], [place] Start: 08-17-2017 Potassium monitoring Potassium monitoring [place], [place] Start: 08-04-2017 A1C test (Diabetic or Prediabetic) A1C test (Diabetic or Prediabetic) [place] Start: 08-04-2017 Hemoglobin A1c measurement A1C test (Diabetic or Prediabetic) [facility] Start: 02-10-2017 Abdominal aortic aneurysm screening AAA screen [facility] Start: 02-10-2017 Pneumococcal 65+ years Vaccine (1 of 2 - PCV13) Pneumococcal 65+ years Vaccine (1 of 2 - PCV13) [place], [place] Start: 01-29-2017 Shingles Vaccine (2 of 3) Shingles Vaccine (2 of 3) [facility] Start: 02-10-2015 Annual Wellness Visit (AWV) Annual Wellness Visit (AWV) [place] Start: 02-10-2002 Colon cancer screen colonoscopy Colon cancer screen colonoscopy [place], [place] Start: 02-10-2002 Screening for malignant neoplasm of colon Colon cancer screen colonoscopy [facility] [employer] Work Phone: Start: 02-10-2002 Shingles Vaccine (1 of 2) Shingles Vaccine (1 of 2) [place], [place] Start: 02-10-1997 Screening for malignant neoplasm of colon [facility] Start: 02-10-1971 DTaP/Tdap/Td vaccine (1 - Tdap) DTaP/Tdap/Td vaccine (1 - Tdap) [facility] Start: 02-10-1971 Hepatitis B vaccine (1 of 3 - Risk 3-dose series) Hepatitis B vaccine (1 of 3 - Risk 3-dose series) [place], [place] Start: 02-10-1970 Diabetic microalbuminuria test Diabetic microalbuminuria test [place] Start: 02-10-1970 Diabetic retinal exam Diabetic retinal exam [facility] Start: 02-10-1970 Glaucoma screening Diabetic retinal exam [facility] Start: 02-10-1970 Hepatitis C screening Hepatitis C screen [facility] Start: 02-10-1970 Urine screening for protein Diabetic Alb to Cr ratio (uACR) test [facility] Start: 1964 Depression Screen Depression Screen [facility] Start: 02-10-1963 DTaP/Tdap/Td vaccine (1 - Tdap) DTaP/Tdap/Td vaccine (1 - Tdap) [place] Start: 02-10-1962 [object Object] Diabetic foot exam [place] Start: 02-10-1962 Diabetic foot examination Diabetic foot exam [facility] Start: 02-10-1962 Diabetic retinal exam Diabetic retinal exam [place] Start: 02-10-1962 Lipid panel [facility] Start: 02-10-1962 Lipid screen Lipid screen [place], [place] Start: 1950 Annual Wellness Visit (AWV) Annual Wellness Visit (AWV) [facility] Start: 1950 Hepatitis C screen Hepatitis C screen [place], [place] Start: 1950 Hepatitis C screening Hepatitis C screen [facility] Work Phone: Start: 1950 Screening for malignant neoplasm of colon [facility] Immunizations Immunization Date Immunization Notes Care Provider Shania walsh 03-28-2024 influenza, seasonal, injectable Brody Ibrahim DPM Work Phone: [facility] 03-28-2024 Seasonal trivalent influenza vaccine, adjuvanted, preservative free Brody Ibrahim DPM Work Phone: [facility] 02-28-2023 influenza virus vacc ine, unspecified formulation Topher STEVENSON [facility] 02-28-2023 Influenza, Seasonal, Quadrivalent, Adjuvanted Brody Ibrahim DPM Work Phone: [facility] 04-16-2022 influenza virus vacc ine, unspecified formulation Topher STEVENSON [facility] 04-16-2022 Influenza, Seasonal, Quadrivalent, Adjuvanted Brody Ibrahim DPM Work Phone: [facility] 03-23-2022 Moderna Bivalent Simmons ster Vaccination Brody Ibrahim DPM Work Phone: [facility] 03-23-2022 Moderna SARS-CoV-2 50mcg/0.5mL Booster Brody Ibrahim DPM Work Phone: [facility] 03-23-[address] 12 Years And Older Brody Ibrahim DPM Work Phone: [facility] 03-23-2022 SARS-CoV-2 (COVID-19 ) [id number] Topher STEVENSON [facility] 06-18-2021 SARS-CoV-2 (COVID-19 ) mRNA BNT-162b2 vax Topher STEVENSON [facility] 05-06-2021 influenza virus vacc ine, unspecified formulation Topher STEVENSON [facility] 05-06-2021 Influenza, Seasonal, Quadrivalent, Adjuvanted Brody Ibrahim DPM Work Phone: [facility] 05-06-2021 SARS-CoV-2 (COVID-19 ) Ad26 vaccine, recombinant Topher STEVENSON [facility] 08-28-2020 SARS-CoV-2 (COVID-19 ) mRNA BNT-162b2 vax Topher SETVENSON [facility] 08-28-2020 SARS-CoV-2, Unspecified Garry garrick Ibrahim DPM Work Phone: [facility] 08-27-2020 Pfizer Purple Cap SARS-CoV-2 Vaccination Brody Ibrahim DPM Work Phone: [facility] 08-08-2020 SARS-CoV-2 (COVID-19 ) mRNA BNT-162b2 vax Topher STEVENSON [facility] Comment on above: Result Comment: 2022: [id number] 08-08-2020 SARS-CoV-2, Unspecified Garry garrick Ibrahim DPM Work Phone: [facility] 08-07-2020 Pfizer Purple Cap SARS-CoV-2 Vaccination Brody Ibrahim DPM Work Phone: [facility] 08-04-2020 SARS-CoV-2 (COVID-19 ) Ad26 vaccine, recombinant Topher STEVENSON [facility] 03-22-2020 influenza virus vacc ine, unspecified formulation Topher STEVENSON [facility] 03-22-2020 Influenza, Seasonal, Quadrivalent, Adjuvanted Brody Ibrahim DPM Work Phone: [facility] 03-06-2019 pneumococcal conjuga te vaccine, 13 valent Topher STEVENSON [facility] 03-05-2019 influenza virus vacc ine, unspecified formulation Topher STEVENSON [facility] 03-05-2019 influenza, high dose seasonal, preservative-free Brody Rusher DPM Work Phone: [facility] 03-05-2019 pneumococcal polysaccharide vaccine, 23 valent Topher STEVENSON [facility] 03-04-2019 Influenza, High-dose Seasonal, Quadrivalent, Preservative Free Brody Rusher DPM Work Phone: [facility] 03-04-2019 pneumococcal polysaccharide vaccine, 23 valent Brody Rusher DPM Work Phone: [facility] 03-03-2018 influenza virus vacc ine, unspecified formulation Topher STEVENSON [facility] 03-03-2018 influenza, high dose seasonal, preservative-free Brody Rusher DPM Work Phone: [facility] 03-03-2018 pneumococcal conjuga te vaccine, 13 valent Topher STEVENSON [facility] 03-03-2018 pneumococcal polysaccharide vaccine, 23 valent Brody Rusher DPM Work Phone: [facility] 03-02-2018 pneumococcal conjuga te vaccine, 13 valent Brody Rusher DPM Work Phone: [facility] 04-06-2017 influenza virus vacc ine, unspecified formulation Topher STEVENSON [facility] 04-06-2017 influenza, injectabl e, quadrivalent, preservative free Brody Rusher DPM Work Phone: [facility] 12-04-2016 pneumococcal polysaccharide vaccine, 23 valent Topher STEVENSON [facility] 12-04-2016 zoster vaccine, live Topher STEVENSON [facility] 03-06-2016 Influenza Vaccine, unspecified formulation Mthz Schedule [facility] 03-06-2016 influenza virus vacc ine, H5N1, A/[place]/ (national stockpile) Brody Ibrahim DPM Work Phone: [facility] 03-06-2016 influenza virus vacc ine, unspecified formulation Brody Ibrahim DPM Work Phone: [facility] 03-06-2016 Influenza, High-dose Seasonal, Quadrivalent, Preservative Free Brody Ibrahim DPM Work Phone: [facility] 03-06-2016 influenza, unspecifi ed formulation Topher STEVENSON [facility] 01-23-2016 influenza virus vacc ine, unspecified formulation Topher STEVENSON [facility] 01-23-2016 influenza, injectabl e, quadrivalent, preservative free Brody Ibrahim DPM Work Phone: [facility] 06-06-2015 pneumococcal polysaccharide vaccine, 23 valent Topher STEVENSON [facility] 03-23-2014 influenza virus vacc ine, unspecified formulation Topher STEVENSON [facility] 03-23-2014 influenza, seasonal, injectable Brody Ibrahim DPM Work Phone: [facility] 04-06-2013 influenza virus vacc ine, unspecified formulation Topher STEVENSON [facility] 04-06-2013 influenza, seasonal, injectable Brody Ibrahim DPM Work Phone: [facility] 04-06-2013 zoster vaccine, live Topher STEVENSON [facility] 04-05-2013 zoster vaccine, live Brody Ibrahim DPM Work Phone: [facility] 04-21-2009 novel influenza-H1N1 -09, preservative-free, injectable Brody Ibrahim DPM Work Phone: [facility] Payers Date Payer Category Payer Private Health Insurance [employer] [place] m[place] [id number] 2022 Unknown 2017 Medicare [id number] 2017 Medicare xxxxxxxxxxx [id number] 1959 Medicare [id number] [id number] .[id number] 1959 Private Health Insurance [id number] 1.2.840.664309.1.13.239.2 .7.3.295008.315 1952 Unknown [id number] 2.16.840.1.459367.3.579.2 .593 1952 Unknown [id number] 2.16.840.1.797303.3.579.2 .593 1952 Unknown [id number] 2.16.840.1.953139.3.579.2 .593 1952 Unknown [id number] 2.16.840.1.754637.3.579.2 .593 1952 Unknown [id number] 2.16.840.1.654580.3.579.2 .593 1952 Unknown [id number] 2.16.840.1.307536.3.579.2 .593 1952 Unknown [id number] 2.16.840.1.533912.3.579.2 .593 1952 Unknown [id number] 2.16.840.1.539326.3.579.2 .593 1952 Unknown [id number] 2.16.840.1.516398.3.579.2 .593 1952 Unknown [id number] 2.16.840.1.329309.3.579.2 .593 1952 Unknown [id number] 2.16.840.1.836278.3.579.2 .593 1952 Unknown [id number] 2.16.840.1.591277.3.579.2 .593 1952 Unknown [id number] 2.16.840.1.501794.3.579.2 .173 1952 Unknown [id number] 2.16.840.1.327368.3.579.2 .173 1952 Unknown [id number] 2.16.840.1.451873.3.579.2 .1259 1952 Unknown [id number] 2.16.840.1.715000.3.579.2 .1259 1952 Unknown [id number] 2.16.840.1.550396.3.579.2 .1259 1952 Unknown [id number] 2.16.840.1.789114.3.579.2 .1259 1952 Unknown [id number] 2.16.840.1.525946.3.579.2 .1258 1952 Unknown [id number] 2.16.840.1.678053.3.579.2 .1258 1952 Unknown [id number] 2.16.840.1.731669.3.579.2 .1258 1952 Unknown [id number] 2.16.840.1.473142.3.579.2 .1258 1952 Unknown [id number] 2.16.840.1.441995.3.579.2 .1258 1952 Unknown [id number] 2.16.840.1.585707.3.579.2 .1258 1952 Unknown [id number] 2.16.840.1.096900.3.579.2 .1258 1952 Unknown [id number] 2.16.840.1.372422.3.579.2 .1952 Unknown [id number] 2.16.840.1.984852.3.579.2 .1952 Unknown [id number] 2.16.840.1.883588.3.579.2 .1952 Unknown [id number] 2.16.840.1.400832.3.579.2 .1952 Unknown [id number] 2.16.840.1.370054.3.579.2 1952 Unknown [id number] 2.16.840.1.493695.3.579.2 .1952 Unknown [id number] 2.16.840.1.820593.3.579.2 1952 Unknown [id number] 2.16.840.1.895159.3.579.2 .1952 Unknown [id number] 2.16.840.1.695238.3.579.2 .727 1952 Unknown [id number] 2.16.840.1.060882.3.579.2 .727 1952 Unknown [id number] 2.16.840.1.292049.3.579.2 .727 1952 Unknown [id number] 2.16.840.1.228193.3.579.2 .727 1952 Unknown [id number] 2.16.840.1.910321.3.579.2 .727 1952 Unknown [id number] 2.16.840.1.040355.3.579.2 .727 1952 Unknown [id number] 2.16.840.1.437954.3.579.2 .727 1952 Unknown [id number] 2.16.840.1.742549.3.579.2 .727 Medicare [id number] Social History Date Type Detail Facility Start: 10-18-2018 End: 12-06-2023 Tobacco smoking status NHIS Former smoker [place], [place] End: 06-06-2012 History of tobacco use Current smoker [place] Start: 10-18-2018 End: 05-17-2023 Cigarettes smoked current (pack per day) - Reported [facility] Start: 10-18-2018 End: 05-17-2023 Alcohol intake No [place] Start: 01-23-2014 Tobacco Comment quit smoking in 1999 [place], [place] Start: 1950 Sex Assigned At Not on file [place] Start: 10-18-2018 End: 10-21-2021 Alcohol intake Current non-drinker of alcohol (finding) [place] Start: 10-22-2020 End: 12-06-2023 Tobacco use and exposure Never used [facility] Start: 01-18-2022 End: 01-28-2022 Exposure to SARS-CoV-2 (event) Not sure [facility] End: 01-01-2013 History of tobacco use Cigarette Smoker KITTY QUIROZ [email or web address] Work Phone: Start: 05-17-2023 End: 04-23-2024 Alcohol [...] 12-05-2023 Functional Status N/A [facility] 06-20-2023 Functional Status N/A [facility] 11-05-2022 Functional Status N/A [facility] 06-18-2022 Functional Status N/A [facility] 05-17-2022 Functional Status N/A [facility] 02-01-2022 Functional Status N/A [facility] Clinical Notes 10-22-2020 to 05-02-2024 Brody Ibrahim [...] All other systems reviewed and are negative. [facility] 04-23-2024 History of Present illness Narrative Images from the original note were not included. Subjective Patient ID: Juan Miguel Jennings is a 74 y.o. 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 [...] 2010 Geraldo Raza CATARACT EXTRACTION Left 2019 [facility] OTHER SURGICAL HISTORY 03/2017 lesions on bottom of both feet, [facility] OTHER SURGICAL HISTORY 4 stents Geraldo Stafford [...] Brody Ibrahim DPM documented in this encounter [facility] 04-23-2024 Instructions Brody Ibrahim DPM - 04/23/2024 11:00 AM EST Instructions as noted documented in this encounter [facility] 04-09-2024 Telephone encounter Note Custom orthotics arrived droana Gruber [facility] 04-09-2024 Miscellaneous Notes Custom orthotics arrived senthil Gruber documented in this encounter [facility] 03-29-2024 History of Present illness Narrative [...] Measurements obtained in the weight-bearing position utilizing [employer] device. Foam impressions obtained simulated weight-bearing. Patient [...] Brody Ibrahim DPM documented in this encounter [facility] 03-29-2024 Instructions Brody Ibrahim DPM - 03/29/2024 1:00 PM EDT As noted documented in this encounter [facility] 03-27-2024 History of Present illness Narrative [...] with Hgb A1C. Also this is a dmbe-gy-grnq visit for consideration for diabetic shoes. Patient [...] polyneuropathy, without long-term current use of insulin ([facility]) (Primary) Chronic problem, stable, to goal. Patient has multiple podiatric issues. The forms from Podiatry were reviewed. Patient's feet were examined. I concur with the forms from Podiatry. Diabetic shoes are medically indicated. I certify that I had a tjky-nx-busx encounter with this patient at todays office visit. Due to this medical condition the patient requires DME. I certify that based on my findings The DME ordered is medically necessary for this patient. This has been discussed with the patient and/or their disability representative and mutually agreed upon. See the [...] 6. Partial nontraumatic amputation of foot, left ([facility]) Comorbid condition currently being managed by Podiatry 7. Venous stasis dermatitis of both lower extremities Chronic problem, stable. Does not appear to be progressing significantly. Discussed the importance of keeping the area moisturized. 8. Type 2 diabetes mellitus with diabetic microalbuminuria, without long-term current use of insulin ([facility]) Chronic problem, stable, to goal. 9. Microalbuminuria [...] stratification for cardiovascular disease. 10. Essential hypertension ([facility]) In prescribing a renewal to their current [...] - Comprehensive metabolic panel 11. Mixed hyperlipidemia ([facility]) - Lipid panel; Future - Lipid panel 12. Adverse reaction to statin medication Diagnosis for exclusion for HEDIS measures for both diabetes with statin and mixed dyslipidemia with statin. 13. Former smoker Continue nonsmoking 14. Morbid obesity ([facility]) Continue lifestyle changes as able documented in this encounter [facility] 03-13-2024 History of Present illness Narrative [...] Brody Ibrahim DPM documented in this encounter [facility] 03-13-2024 Instructions Brody Ibrahim DPM - 03/13/2024 9:45 AM EDT As noted documented in this encounter [facility] 12-05-2023 Hospital Discharge instructions Patient Education [...] therapy. Follow these instructions at home: Take [id number] and prescription medicines only as told by [...] provider. Document Revised: 01/22/2021 Document Reviewed: 01/22/2021 [employer] Patient Education 2022 [employer]. Follow Up Care 12/05/2023 07:35:26 With:KERI NOLASCO, Topher Ordoñez, URL Address: [facility] [address] [place] [address]- [phone] When: Unknown [facility] 12-05-2023 Note Patient Education Urology Hypogonadism, Male [...] Follow these instructions at home: ? Take [id number] and prescription medicines only as told by [...] provider. Document Revised: (more content not included)... [facility] 11-07-2023 Hospital Discharge instructions Follow Up Care 11/07/2023 08:41:09 With:KERI NOLASCO, Topher Ordoñez, URL Address: [facility] [address] [place] [address]- [phone] When: Unknown [facility] 07-19-2023 History of Present illness Narrative Images [...] May 2023; effectively healed following treatment at [facility] wound Center. Currently relates no bleeding or [...] 03/2017 lesions on bottom of both feet, [facility] OTHER SURGICAL HISTORY 4 stents KaborArnoldPeguero - [...] with wound right foot; effectively managed at [facility] wound care center. Care plan: conservative [...] Brody Ibrahim DPM documented in this encounter [facility] 07-19-2023 Instructions Brody Ibrahim DPM - 07/19/2023 10:30 AM EST As noted documented in this encounter [facility] 06-20-2023 Hospital Discharge instructions Patient Education [...] therapy. Follow these instructions at home: Take pryn-ntx-cscthsn and prescription medicines only as told by [...] provider. Document Revised: 01/22/2021 Document Reviewed: 01/22/2021 [employer] Patient Education 2022 [employer]. Follow Up Care 02/08/2023 12:23:35 With:KERI NOLASCO, Topehr R, URL Address: [facility] [address] [place] [address]- [phone] When: Unknown Comments:6 mos w/ PSA and T level (pt to also get PSA now) [facility] 11-05-2022 Hospital Discharge instructions Patient [...] urethra. Follow these instructions at home: Take jclf-ypf-vvpkbbs and prescription medicines only as told by [...] provider. Document Revised: 12/09/2021 Document Reviewed: 12/09/2021 [employer] Patient Education 2022 [employer]. Follow Up Care 05/17/2022 10:46:35 With:KERI NOLASCO, Topher Ordoñez, URL Address: [facility] [address] , [place] [address]- When: Unknown [facility] History of Present illness [...] visit documented in this encounter KITTY QUIROZ [employer] Work Phone: 09-15-2022 Note EXAM: XR CHEST 2 V HISTORY: Pre-surgery evaluation COMPARISON: None. TECHNIQUE: PA and lateral views of the chest. FINDINGS: The cardiomediastinal silhouette is normal. No focal consolidation is identified. There is no pneumothorax. No pleural effusion is noted. The osseous structures are intact. IMPRESSION: No acute cardiopulmonary process. Electronically authenticated by: DARRIUS BOLTON Date: 2022-09-15 12:26 [facility] 06-18-2022 Hospital Discharge instructions Patient [...] urethra. Follow these instructions at home: Take avge-eka-jmrnpqr and prescription medicines only as told by [...] 05/23/2006 Document Revised: 04/17/2019 Document Reviewed: 06/27/2017 [employer] Patient Education 2020 [employer]. Follow Up Care 06/14/2022 09:33:13 With:KERI NOLASCO, Topher Ordoñez, URL Address: [address] [place], [place] [phone]- When: Unknown [facility] 05-17-2022 Hospital Discharge instructions Patient [...] urethra. Follow these instructions at home: Take wuvo-ueb-cixlnjd and prescription medicines only as told by [...] 05/23/2006 Document Revised: 04/17/2019 Document Reviewed: 06/27/2017 [employer] Patient Education 2020 [employer]. Follow Up Care 04/21/2022 09:42:50 With:KERI NOLASCO, Topher Ordoñez, URL Address: [facility] [address] , [place] [address]- When: Unknown [facility] 03-23-2022 Note PROCEDURE: XR FOOT R T [...] authenticated by: BRODY PAYAN Date: 2022-03-23 06:26 [facility] 02-01-2022 Hospital Discharge instructions Patient [...] urethra. Follow these instructions at home: Take ujvx-cex-ytsimun and prescription medicines only as told by [...] 05/23/2006 Document Revised: 04/17/2019 Document Reviewed: 06/27/2017 [employer] Patient Education 2020 [employer] Follow Up Care 08/03/2021 15:20:11 With:KERI NOLASCO, Topher Ordoñez, URL Address: [address] [place] [phone]- When: Unknown [facility] [employer] 10-22-2020 History of Present illness Narrative 1225 [...] ambulating without complaints documented in this encounter [facility] [employer] Work Phone: Evaluation + Plan note Future Appointments Appointment Date:09/28/2021 09:00:00 AM Scheduled Provider: Location:[facility] Appointment Type:URO Nurse Visit Appointment Date:02/01/2022 09:45:00 AM Scheduled Provider:Topher STEVENSON MD Location:[facility] Appointment Type:URO Office Visit [facility] [employer] Evaluation + Plan note Future Appointments Appointment Date:10/26/2021 09:00:00 AM Scheduled Provider: Location:[facility] Appointment Type:URO Nurse Visit Appointment Date:02/01/2022 09:45:00 AM Scheduled Provider:Topher STEVENSON MD Location:[facility] Appointment Type:URO Office Visit [facility] Evaluation + Plan note Future Appointments Appointment Date:11/23/2021 09:00:00 AM Scheduled Provider: Location:[facility] Appointment Type:URO Nurse Visit Appointment Date:02/01/2022 09:45:00 AM Scheduled Provider:Topher STEVENSON MD Location:[facility] Appointment Type:URO Office Visit [facility] [employer] Evaluation + Plan note Future Appointments Appointment Date:12/21/2021 09:00:00 AM Scheduled Provider: Location:[facility] Appointment Type:URO Nurse Visit Appointment Date:02/01/2022 09:45:00 AM Scheduled Provider:Topher STEVENSON MD [facility] Type:URO Office Visit [facility] Evaluation + Plan note Future Appointments Appointment Date:02/01/2022 09:45:00 AM Scheduled Provider:Topher STEVENSON MD Location:[facility] Appointment Type:URO Office Visit Diagnostic Tests PendingTestosterone Level Total 12/21/21 [facility] Evaluation + Plan note Future Appointments Appointment Date:03/01/2022 09:30:00 AM Scheduled Provider: Location:[facility] Appointment Type:URO Nurse Visit Diagnostic Tests PendingTestosterone Level Total 04/06/22PSA Total 03/06/22 [facility] Evaluation + Plan note Future Appointments Appointment Date:03/31/2022 08:15:00 AM Scheduled Provider: Location:[facility] Appointment Type:URO Nurse Visit [facility] Evaluation + Plan note Future Appointments Appointment Date:04/21/2022 09:15:00 AM Scheduled Provider: Location:[facility] Appointment Type:URO Nurse Visit [facility] Evaluation + Plan note Future Appointments Appointment Date:05/19/2022 08:00:00 AM Scheduled Provider:Mandy Schaefer MD Location:[facility] Appointment Type:URO Office Visit Diagnostic Tests PendingPSA Total 04/16/22Testosterone Level Total 04/16/22 [facility] Evaluation + Plan note Future Appointments Appointment Date:06/14/2022 09:00:00 AM Scheduled Provider: Location:[facility] Appointment Type:URO Nurse Visit Appointment Date:11/15/2022 08:45:00 AM Scheduled Provider:Topher STEVENSON MD [facility] Type:[facility]O Office Visit Diagnostic Tests PendingPSA Total 05/17/22Testosterone Level Total 05/17/22 [facility] Evaluation + Plan note Future Appointments Appointment Date:09/06/2022 09:00:00 AM Scheduled Provider: Location:[facility] Appointment Type:URO Nurse Visit Appointment Date:11/15/2022 08:45:00 AM Scheduled Provider:Topher STEVENSON MD Location:[facility] Appointment Type:URO Office Visit [facility] Evaluation + Plan note Future Appointments Appointment Date:10/05/2022 09:00:00 AM Scheduled Provider: Location:[facility] Appointment Type:URO Nurse Visit Appointment Date:10/29/2022 08:45:00 AM Scheduled Provider:Topher STEVENSON MD Location:[facility] Appointment Type:URO Office Visit Appointment Date:11/05/2022 09:45:00 AM Scheduled Provider:Topher STEVENSON MD [facility] App[facility] Type:URO Office Visit [facility] Evaluation + Plan note Future Appointments Appointment Date:11/05/2022 09:45:00 AM Scheduled Provider:Topher STEVENSON MD Location:[facility] Appointment Type:URO Office Visit [facility] Evaluation + Plan note Future Appointments Appointment Date:12/03/2022 09:15:00 AM Scheduled Provider: [facility] App[facility] Type:URO Nurse Visit Diagnostic Tests PendingTestosterone Level Total 11/05/22PSA Total 11/05/22 [facility] Evaluation + Plan note Future Appointments Appointment Date:01/03/2023 08:15:00 AM Scheduled Provider: Location:[facility] Appointment Type:URO Nurse Visit [facility] Evaluation + Plan note Future Appointments Appointment Date:01/31/2023 08:45:00 AM Scheduled Provider: Location:[facility] Appointment Type:URO Nurse Visit [facility] Evaluation + Plan note Future Appointments Appointment Date:03/07/2023 08:45:00 AM Scheduled Provider: Location:[facility] Appointment Type:URO Nurse Visit Appointment Date:04/04/2023 08:45:00 AM Scheduled Provider: Location:[facility] Appointment Type:URO Nurse Visit Appointment Date:05/02/2023 08:45:00 AM Scheduled Provider: Location:[facility] Appointment Type:URO Nurse Visit Appointment Date:05/27/2023 09:45:00 AM Scheduled Provider:Topher STEVENSON MD [facility] Appointment Type:URO Office Visit [facility] Evaluation + Plan note Future Appointments Appointment Date:05/02/2023 08:45:00 AM Scheduled Provider: Location:[facility] Appointment Type:URO Nurse Visit Appointment Date:06/20/2023 10:30:00 AM Scheduled Provider:Topher STEVENSON MD [facility] Appointment Type:URO Office Visit [facility] Evaluation + Plan note Future Appointments Appointment Date:06/20/2023 10:30:00 AM Scheduled Provider:Topher STEVENSON MD Location:[facility] Appointment Type:URO Office Visit Diagnostic Tests PendingTestosterone Level Total 05/09/23 [facility] Evaluation + Plan note Future Appointments Appointment Date:07/18/2023 09:30:00 AM Scheduled Provider: Location:[facility] Appointment Type:URO Nurse Visit Diagnostic Tests PendingPSA Total 06/20/23Testosterone Level Total 06/20/23 [facility] Evaluation + Plan note Future Appointments Appointment Date:08/15/2023 10:00:00 AM Scheduled Provider: Location:[facility] Appointment Type:URO Nurse Visit [facility] Evaluation + Plan note Future Appointments Appointment Date:09/09/2023 08:30:00 AM Scheduled Provider: Location:[facility] Appointment Type:URO Nurse Visit [facility] Evaluation + Plan note Future Appointments Appointment Date:10/07/2023 08:30:00 AM Scheduled Provider: Location:[facility] Appointment Type:URO Nurse Visit [facility] Evaluation + Plan note Future Appointments Appointment Date:11/07/2023 09:00:00 AM Scheduled Provider: Location:[facility] Appointment Type:URO Nurse Visit [facility] Evaluation + Plan note Future Appointments Appointment Date:12/05/2023 10:45:00 AM Scheduled Provider:Topher STEVENSON MD Location:[facility] Appointment Type:URO Office Visit [facility] Evaluation + Plan note Future Appointments Appointment Date:01/02/2024 09:00:00 AM Scheduled Provider: Location:[facility] Appointment Type:URO Nurse Visit Diagnostic Tests PendingTestosterone Level Total 12/05/23emoglobin 12/05/23 [facility] Evaluation + Plan note Future Appointments Appointment Date:01/02/2024 09:00:00 AM Scheduled Provider: Location:[facility] Appointment Type:URO Nurse Visit [facility] Evaluation + Plan note Future Appointments Appointment Date:02/27/2024 09:00:00 AM Scheduled Provider: Location:[facility] Appointment Type:URO Nurse Visit [facility] Evaluation + Plan note Future Appointments Appointment Date:03/27/2024 09:00:00 AM Scheduled Provider: [facility] Appoint[facility] Type:URO Nurse Visit Appointment Date:04/23/2024 09:30:00 AM Scheduled Provider: [facility] Appointment Type:URO Nurse Visit Appointment Date:05/21/2024 10:45:00 AM Scheduled Provider:Topher STEVENSON MD [facility] Appointment Type:URO Office Visit [facility] Evaluation + Plan note Future Appointments Appointment Date:04/23/2024 09:30:00 AM Scheduled Provider: [facility] Appointment Type:URO Nurse Visit Appointment Date:05/21/2024 10:45:00 AM Scheduled Provider:Topher STEVENSON MD [facility] Appointment Type:URO Office Visit [facility] Evaluation + Plan note Future Appointments Appointment Date:05/08/2024 09:00:00 AM Scheduled Provider: Location:[facility] Appointment Type:URO Nurse Visit Appointment Date:05/21/2024 10:45:00 AM Scheduled Provider:Topher STEVENSON MD [facility] App[facility] Type:URO Office Visit [facility] Evaluation note Diagnosis Polycythemia- Primary Polycythemia vera documented in this encounter [employer] Phone: evaluation note* Diagnosis Polycythemia- Primary Polycythemia vera documented in this encounter KITTY QUIROZ [employer] Phone: evaluation note* Diagnosis Dermatophytosis of nail- Primary Dystrophic nail Other specified disease of nail Diabetic polyneuropathy associated with type 2 diabetes mellitus ([facility]) Nontraumatic amputation of foot, right ([facility]) Nontraumatic amputation of foot, left ([facility]) Acquired keratoderma documented in this encounter [facility] HealthcareEvaluation note* Diagnosis Acquired keratoderma- Primary Diabetic polyneuropathy associated with type 2 diabetes mellitus ([facility]) Nontraumatic amputation of foot, left ([facility]) Nontraumatic amputation of foot, right ([facility]) documented in this encounter [facility] HealthcareEvaluation note* Diagnosis Type 2 diabetes mellitus with diabetic polyneuropathy, without long-term current use of insulin ([facility])- Primary Acquired hallux malleus of left foot Acquired hammer toes of both feet Foot callus Corns and callosities Partial nontraumatic amputation of right foot ([facility]) Partial nontraumatic amputation of foot, left ([facility]) Venous stasis dermatitis of both lower extremities Type 2 diabetes mellitus with diabetic microalbuminuria, without long-term current use of insulin ([facility]) Microalbuminuria Proteinuria Essential hypertension ([facility]) Unspecified essential hypertension Mixed hyperlipidemia ([facility]) Mixed hyperlipidemia Adverse reaction to statin medication Former smoker Personal history of tobacco use, presenting hazards to health Morbid obesity ([facility]) Morbid obesity documented in this encounter [facility] HealthcareEvaluation note* Diagnosis Diabetic polyneuropathy associated with type 2 diabetes mellitus ([facility])- Primary Nontraumatic amputation of foot, left ([facility]) Nontraumatic amputation of foot, right ([facility]) documented in this encounter [facility] HealthcareHospital course Narrative No data available for this section [facility] Hospital Discharge instructions No data available for this section [facility] progress note No data available for this section [facility] [employer] Summary Purpose Family History No Family History [...] FoundDocuments on File Type Date Recorded 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 Advance Directives and Livin g Will Advance Directives and Livin g Will 08/31/2013 9:46 AM Power of Automotive Dismantler Power of Automotive Dismantler 08/31/2013 9:46 AM Latest Code Status on File Code Status Date Activated Date Inactivated Comments Full Code 08/06/2016 9:06 AM 08/09/2016 5:53 PM Full Code 08/04/2016 9:28 PM 08/06/2016 9:06 AM Full Code 05/15/2015 12:42 PM 05/19/2015 6:52 PM Full Code 05/12/2015 11:22 AM 05/15/2015 12:42 PM Full Code 05/13/2014 2:36 PM 05/13/2014 9:20 PM Documents on File Type Date Recorded 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 ACP-Advance Directive ACP-Power of Automotive Dismantler ACP-Advance Directive 08/31/2013 9:46 AM ACP-Power of Automotive Dismantler 08/31/2013 9:46 AM Documents on File Type Date Recorded 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 ACP-Advance Directive 08/31/2013 9:46 AM ACP-Power of Automotive Dismantler 08/31/2013 9:46 AM Latest Code Status on [...] Documents on File Type Date Recorded 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 Advance Directives and Living Will 11/20/2019 2018-05-09 Living Wi ll Advance Directives and Living Will 11/20/2019 2018-05-09 Power Of Automotive Dismantler History of Present Illness * Luh Hoffman [...] section and content) DATE CREATED AUTHOR 11/24/2017 [facility] DATE CREATED AUTHOR AUTHOR'S ORGANIZ ATION 03/15/2018 [facility] DATE CREATED AUTHOR AUTHOR'S ORGANIZ ATION 07/01/2021 [facility] DATE CREATED AUTHOR AUTHOR'S ORGANIZ ATION 09/26/2021 [facility] dical Specialist DATE CREATED AUTHOR AUTHOR'S ORGANIZ ATION 11/13/2022 [facility] DATE CREATED AUTHOR AUTHOR'S ORGANIZ ATION 11/10/2023 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 [...] BE BASED ON THE PRIMARY CLINICAL RECORDS. [employer] [facility]. provides no warranty or guarantee of the accuracy or completeness of information in this document.
[2024-05-09 04:10] LABS: Testosterone 461 ng/dL (264-916)
== END 2024-05-08 09:08 | disposition home or self-care (01) ==
LOC: LAB 09:09
PROVIDERS: PCP Family Medicine; Visit Provider Urology
DX: I25.10 Atherosclerotic heart disease of native coronary artery without angina pectoris (principal); E23.7 Disorder of pituitary gland, unspecified
CPT/HCPCS: 36415; 80061; 84403

== ENCOUNTER 2024-05-17 08:02 | Outpatient (OUT) | payer MEDICARE, SELFPAY ==
--- NOTE | 2024-05-17 | PCN_ITS ---
CARDIAC STRESS TEST Requesting Physician: Dianne Clemons NP Procedure Date: 05/17/2024 PERFORMING PROVIDER: Zachary Christie M.D. INDICATION: CAD, fatigue. STRESS TEST PROTOCOL: Lexiscan myocardial perfusion imaging. Resting heart rate: 56 Max heart rate: 74 Resting blood pressure: 154/96 Max blood pressure: 154/92 CONCLUSION: 1. Resting EKG is abnormal with sinus bradycardia with first degree AV block. 2. There were no definite EKG changes meeting the criteria of ischemia post Lexiscan infusion. 3. Please refer to separately interpreted and reported nuclear myocardial perfusion imaging report. [facility]
--- NOTE | 2024-05-17 08:30 | NM_ITS ---
Patient Name: NIMCO LARA MR#: [id number] : 1950 Exam Date: 05/17/2024 Ordering Doctor: PAUL WEN CNP RADIOLOGY REPORT PROCEDURE: NM FAITH PERF SPECT REST STR COMPARISON: None. INDICATIONS: FATIGUE, CORONARY ARTERY DISEASE TECHNIQUE: Exam Description: Stress/Rest two day protocol gated SPECT Rest Imagin.0 mCi Tc-99m Cardiolite IV on 05/18/2024 Stress Imaging 25.5 mCi Tc-99m Cardiolite IV on 05/17/2024 Exercise Protocol: 0.4 mg Lexiscan given IV Heart Rate (bpm): Rest: 56 Max: 74 PMHR: 50 Blood Pressure: Rest: 154/96 Max: 154/96 Symptoms: Rest and peak stress ECG findings were normal and the exercise portion of the study was normal per attending physician Dr. Christie . For more details please see separate cardiac stress test report. FINDINGS: QUALITY OF STUDY: Good. PERFUSION DEFECT: LOCATION: Mid-anterior. Mid-inferior. Apical anterior. Apical inferior. [place]. SIZE: Large (5 or more segments). SEVERITY: Severe. TYPE: Persistent. WALL MOTION: Moderate hypokinesis: LV SIZE: Enlarged; EDV 180 mL. TID / TCD: None; 1.0 LVEF: Abnormal. Calculated EF 49%. SUMMARY: Myocardial perfusion imaging study has ABNORMAL findings. CONCLUSION: 1. Large fixed defects involving the anterior wall and inferior wall, LAD and RCA distributions 2. No redistribution to suggest reversible ischemia 3. Dilated left ventricle, EDV 180 milliliters 4. Low left ventricular ejection fraction of 49% 5. Normal exercise test Dictated by: Silvaino Hugo MD on 05/18/2024 at 10:01 Approved by: Silviano Hugo MD on 05/18/2024 at 10:05
--- NOTE | 2024-05-17 09:37 | PC.NURSE ---
Nursing Note Cardiac Stress Test Reviewed: Medication, allergies and patient history reviewed. Stress Test: [x ] Patient tolerated stress test well. [ ] Patient unable to tolerate walking on treadmill. Switched to Lexiscan stress test. [ x] No chest pain noted per patient [ ] Chest pain that resolved prior to leaving stress lab. [x ] No dyspnea noted. [ ] Dyspnea that resolved prior to leaving stress lab. [x ] Patient left stress lab asymptomatic and hemodynamically stable. [ ] Patient taken to the Emergency Room due to non-resolving symptoms following stress test. [ ] Patient achieved target heart rate. [ ] Patient unable to achieve target heart rate. [ ] Aminophylline administered as reversal agent to Lexiscan (Regadenoson). [ ] Nitro administered. Nursing Comments:
[2024-05-17] MEDS: REGADENOSON 0.4 MG/5 ML SYRINGE IV (09:41)
== END 2024-05-17 08:03 | disposition home or self-care (01) ==
LOC: CARD 08:03
PROVIDERS: PCP Family Medicine; Visit Provider Nurse Practitioner Family
DX: I25.10 Atherosclerotic heart disease of native coronary artery without angina pectoris (principal); R53.83 Other fatigue
CPT/HCPCS: 78452; 93017; A9500; J2785

== ENCOUNTER 2024-05-22 08:11 | Outpatient (OUT) | payer MEDICARE, SELFPAY ==
--- OUTSIDE RECORDS SUMMARY | 2024-05-22 08:37 | XMS_ITS | CCD ---
Author Organization [facility] Care Team Providers Care Rag Sorter And Cutter Name Role Phone PHYSICIAN, DEFAULT Unavailable Unavailable PHYSICIAN, DEFAULT Unavailable Unavailable Diego Bartlett Primary Care Provider [phone] Jordan Duncan Primary Care Provider Jordan Duncan MD Primary Care Provider [phone] JORDAN DUNCAN Primary Care Physician Jordan Duncan MD Primary Care Provider JORDAN DUNCAN Primary Care Physician Unavail able Jordan Duncan MD Primary Care Provider ENEDINA BOSS Attending Unavailable HEMEYER ., DR ALATORRE Primary Care Unavailable ENEDINA BOSS Admitting Unavailable ENEDINA BOSS Admitting Unavailable ENEDINA BOSS Attending Unavailable HEMEENOC ., DR [...] BEENA, PETER Marion Attending Unavailable HIGHLSULAIMAN, PETER Marion Admitting Unavailable HEMEYER ., DR ALATORRE Primary Care Unavailable ENEDINA BOSS Attending Unavailable HIGHLSULAIMAN PETER Marion Admitting Unavailable HEMEYER ., DR ALATORRE Primary Care Unavailable Hemeyer Jordan NOLASCO Primary Care Provider [phone] Mitch Mello MD Unavailable Jr. Julio Henson DO Unavailable [place] DALAL, Brody Xiao Unavailable [phone] WILLI SANCHEZ Referring Unavailable HEMEYER, JORDAN Brown Primary Care Unavailable WILLI SANCHEZ Referring Unavailable HEMEYER, JORDAN Brown Primary Care Unavailable Jordan Duncan MD Unavailable [phone] Jordan Duncan MD Primary Care Provider Jordan Duncan MD Unavailable PAUL WEN Attending Unavailable Jordan Duncan MD Primary Care Provider Jordan Duncan MD Unavailable GARRY IBRAHIMEN Dameon Attending Unavailable RUSHER, BRODY A Attending Unavailable [...] R Attending Unavailable Orzech, Fernanda X Attending Topher Jewell Attending Topher Jewell Attending Topher Jewell Attending Topher Jewell Attending Unavailable Allergies Allergy Classification Reported Allergen(s) Allergy Type Date of Onset Reaction(s) Facility (4 sources) Clindamycin/Linc omycin Propensity to adverse reactions to drug 8 [email or web address] Clindamycin Drug Allergy 2 [facility] (3 sources) glipiZIDE; Translations: [GLIPIZIDE] Drug Allergy 2 Diarrhea [employer] Work Phone: (20 sources) metFORMIN; Translations: [METFORMIN] Drug Allergy 2 Diarrhea, Unknown [facility] Free Phone: (20 sources) Pravastatin; Translations: [PRAVASTATIN] Drug Allergy 2 Unknown [facility] Free Phone: (3 sources) rosuvastatin; Translations: [ROSUVASTATIN] Drug Allergy 2 [employer] Work Phone: (2 sources) Clindamycin; Translations: [CLINDAMYCIN] Drug Allergy 7 [facility] (1 source) glipiZIDE Drug Allergy 7 [facility] (1 source) metFORMIN Drug Allergy 7 [facility] (18 sources) Clindamycin Drug Allergy 2 Diarrhea [facility] (19 sources) ezetimibe; Translations: [EZETIMIBE] Drug Allergy 2 Unknown [facility] (18 sources) glipiZIDE Drug Allergy 2 Diarrhea, Unknown [facility] (18 sources) Rosuvastatin calcium Allergy to substance 1 Unknown [facility] Medications Current Medications Medication Drug Class(es) Dates [...] Status: Ordered famotidine 20 mg oral tablet (16 sources) Histamine-2 Receptor Antagonist Start: 12-13-2023 take [...] Status: Ordered take 2 tablets by mo [facility] once daily losartan (COZAAR) 25 MG [...] MG 24 hr tablet Indications: Atherosclerosis of [place] coronary artery of [place] heart without angina pectoris (CMS/HCC) Take 1.5 tablets (150 mg) by mouth in the morning. Do not crush or chew.. 135 tablet 1 04/20/2023 10/17/2023 Active take 2 tablets by mo ut twice daily in the evening metoprolol (TOPROL-XL) 25 MG XL tablet Take 2 tablets by mouth 2 times daily 100mg in the am, 50mg in the pm 0 Active Multiple Vitamin (MULTIVITAMIN ADULT PO) (1 source) Multiple Vitamin (MULTIVITAMIN ADULT PO) Take by mouth 0 Active Multiple Vitamin (multivitamin) capsule (18 sources) take 1 capsule by mo uth in the morning Multiple Vitamin (multivitamin) capsule [...] BID, # 180 cap(s), Refills(s) 3, Pharmacy: [facility]/pharmacy #[id number], 198, cm, 12/05/23 10:49:00 EDT, Height/Length Dosing, 150.3, kg, 12/05/23 10:49:00 EDT, Weight Dosing Start Date: 01/11/24 Status: Ordered Start: 05-26-2023 take 1 capsule by [facility] once daily tamsulosin 0.4 mg Cap 0.4 mg = 1 cap(s), Oral, Daily, # 90 cap(s), Refills(s) 3, Pharmacy: [facility]/pharmacy #[id number], 198, cm, 11/05/22 10:14:00 EDT, Height/Length Dosing, 150, kg, 11/05/22 10:14:00 EDT, Weight Dosing Start Date: 05/26/23 Status: Ordered Start: 06-18-2022 take 1 capsule by [facility] once daily tamsulosin 0.4 mg Cap 0.4 mg = 1 cap(s), Oral, Daily, # 90 cap(s), Refills(s) 3, Pharmacy: [facility]/pharmacy #[id number], 198, cm, 06/18/22 9:10:00 EST, Height/Length Dosing, 164, kg, 06/18/22 9:10:00 EST, Weight Dosing Start Date: 06/18/22 Status: Ordered take 1 capsule by [facility] every twenty-four hours in the morning tamsulosin [...] 10 mL, Refills(s) 1, Pharmacy: [facility]/pharmacy #[id number], 198, cm, 12/05/23 10:49:00 EDT, Height/Length Dosing, 150.3, kg, 12/05/23 10:49:00 EDT, Weight Dosing Start Date: 03/27/24 Status: Ordered Start: 01-03-2024 testosterone c ypionate 200 mg/mL IM Richelle 400 mg, IntraMuscular, q4wk, # 10 mL, Refills(s) 1, Pharmacy: [facility]/pharmacy #[id number], 198, cm, 12/05/23 10:49:00 EDT, Height/Length Dosing, 150.3, kg, 12/05/23 10:49:00 EDT, Weight Dosing Start Date: 01/03/24 Status: Ordered Start: 06-20-2023 testosterone c ypionate 200 mg/mL IM Richelle 450 mg, IntraMuscular, q4wk, # 10 mL, Refills(s) 1, Pharmacy: [facility]/pharmacy #[id number], 198, cm, 06/20/23 11:05:00 EST, Height/Length Dosing, 149, kg, 06/20/23 11:05:00 EST, Weight Dosing Start Date: 06/20/23 Status: Ordered Start: 05-09-2023 testosterone c ypionate 200 mg/mL IM Richelle 400 mg, IntraMuscular, q4wk, # 10 mL, Refills(s) 1, Pharmacy: [facility]/pharmacy #[id number], 198, cm, 11/05/22 10:14:00 EDT, Height/Length Dosing, 150, kg, 11/05/22 10:14:00 EDT, Weight Dosing Start Date: 05/09/23 Status: Ordered Start: 02-08-2023 testosterone c ypionate 200 mg/mL IM Richelle 400 mg, IntraMuscular, q4wk, # 10 mL, Refills(s) 2, Pharmacy: [facility]/pharmacy #[id number], 198, cm, 11/05/22 10:14:00 EDT, Height/Length Dosing, 150, kg, 11/05/22 10:14:00 EDT, Weight Dosing Start Date: 02/08/23 Status: Ordered Start: 08-27-2022 testosterone c ypionate 200 mg/mL IM Richelle 400 mg, IntraMuscular, q4wk, # 10 mL, Refills(s) 2, Pharmacy: [facility]/pharmacy #[id number], 198, cm, 06/18/22 9:10:00 EST, Height/Length Dosing, 164, kg, 06/18/22 9:10:00 EST, Weight Dosing Start Date: 08/27/22 Status: Ordered testosterone cypionate 200 mg/mL intramuscular solution (17 sources) Start: 02-01-2022 testosterone c ypionate 200 mg/mL intramuscular solution 400 mg = 2 mL, IntraMuscular, q4wk, 400mg once a month, # 10 mL, Refills(s) 3, Pharmacy: [facility]/pharmacy #[id number], 198, cm, 02/01/22 9:53:00 EDT, Height/Length Dosing, 166, kg, 02/01/22 9:53:00 EDT, Weight Dosing Start Date: 02/01/22 Status: Ordered Start: 11-23-2021 testosterone c ypionate 200 mg/mL intramuscular solution 350 mg, IntraMuscular, q4wk, # 10 mL, Refills(s) 1, Pharmacy: [facility]/pharmacy #[id number], 198, cm, 08/03/21 14:37:00 EST, Height/Length Dosing, 166, kg, 08/03/21 14:37:00 EST, Weight Dosing Start Date: 11/23/21 Status: Ordered Start: 08-03-2021 testosterone c ypionate 200 mg/mL intramuscular solution 350 mg, IntraMuscular, q4wk, # 10 mL, Refills(s) 1, Pharmacy: [facility]/pharmacy #[id number], 198, cm, 08/03/21 14:37:00 EST, Height/Length [...] Onset: 03-15-2012 08-04-2016 Chronic Chronic kidney disease (18 sources) Chronic kidney disease stage 2; Translations: [Chronic kidney disease, stage 2 (mild)] Onset: 11-15-2019 Resolved: 10-14-2023 01-11-2023 Chronic Coronary atherosclerosis and other heart disease (20 sources) Coronary arteriosclerosis; Translations: [Atherosclerotic heart disease of [place] coronary artery without angina pectoris] Onset: 04-08-2017 [...] 01-13-2023 01-11-2023 Chronic 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 (1 source) shelter (current) use of anticoagulants; Translations: [DETENTION CURRNT USE ANTICOAGULANTS] Onset: 10-12-2022 Episodic 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 (1 source) 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; Translations: [DETENTION CURRENT USE OF ASPIRIN] Onset: 10-12-2022 Episodic 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 (1 source) shelter (current) use of oral hypoglycemic drugs; Translations: [DETENTION USE ORAL HYPOGLYCEMIC DX] Onset: 10-12-2022 Episodic 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 (1 source) Other penitentiary (current) drug therapy; Translations: [OTH OUTFITTER CABIN CURRENT DRUG THERAPY] Onset: 09-20-2022 Episodic Other circulatory disease (1 source) Other specified peripheral vascular diseases; Translations: [OTH SPEC PERIPHERAL VASC DISEASES] Onset: 05-03-2022 Chronic Other connective tissue disease (1 source) Presence of artificial knee joint, bilateral; Translations: [PRESENCE ARTIFICIAL KNEE JNT BILAT] Onset: 10-12-2022 Chronic Other connective tissue disease (18 sources) Artificial knee joint present; Translations: [Presence [...] liver disease 11-05-2019 Episodic Other liver diseases (18 sources) Steatosis of liver; Translations: [Fatty (change [...] UNSPECIFIED] Onset: 10-12-2022 Chronic Residual codes; unclassified (18 sources) Dependence on enabling machine or device; [...] Onset: 10-13-1902-19-2019 Episodic Chronic ulcer of skin (20 sources) Non-pressure chronic ulcer of other part of right foot with fat layer exposed; Translations: [Non-pressure chronic ulcer of left heel and midfoot limited to breakdown of skin] Onset: 01-14-20 Resolved : 01-14-2001-13-2023 Chronic E Codes: Adverse effects of medical drugs (20 sources) HMG COA reductase inhibitor adverse reaction; [...] 01-14-2008-05-2016 Chronic Joint disorders and dislocations; trauma-related (18 sources) Derangement of left knee; Translations: [Unspecified internal derangement of left knee] Onset: 01-24-20 Resolved : 01-14-20 23 01-13-2023 Chronic Mood disorders (18 sources) Mood disorders Onset: 05-17-20 23 05-17-2023 Other connective tissue disease (18 sources) History of total knee arthroplasty; Translations: [...] FOOT] Onset: 03-22-20 Episodic Other endocrine disorders (18 sources) Hypotestosteronism; Translations: [Endocrine disorder, unspecified] Onset: 04-08-20 17 01-11-2023 Episodic Other gastrointestinal disorders (18 sources) Chronic constipation; Translations: [Other constipation] Onset: 01-12-20 23 01-11-2023 Episodic Other hematologic conditions (20 sources) Erythrocytosis; [...] : 01-14-20 Episodic Other nervous system disorders (18 sources) Difficulty walking; Translations: [Difficulty in walking, not elsewhere classified] Onset: 05-26-20 Resolved : 10-10-19 24 01-11-2023 Chronic Other nervous system disorders (18 sources) Drug-induced myopathy; Translations: [Drug-induced myopathy] Onset: [...] CALLOSITIES] Onset: 05-03-20 Episodic Other skin disorders (20 sources) Foot callus; Translations: [Corns and callosities] Onset: 09-24-19 21 01-11-2023 Episodic Residual codes; unclassified (20 sources) History of cardiac catheterization; Translations: [Other specified postprocedural states] Onset: 05-13-20 Resolved : 01-14-20 23 05-13-2014 Episodic Residual codes; unclassified (20 sources) H/O: anticoagulant therapy; Translations: [Personal history of other drug therapy] Onset: 01-12-20 23 01-01-2019 Episodic Residual codes; unclassified (1 source) Pain, unspecified; Translations: [PAIN UNSPECIFIED] Onset: 01-20-20 Episodic Screening and history of mental health and substance abuse codes (20 sources) Ex-smoker; Translations: [Personal history of nicotine [...] Test Name Value Interpretation Reference Range Facility ALL LIPID PROFILE (FASTING)o n 05-08-[address] [facility] Comment on above: 3.3 - 4.4 LOW RISK 4.4 - 7.1 AVERAGE RISK 7.1 - 11.0 MODERATE RISK >11.0 HIGH RISK Cholesterol [Mass/Vol] 189 mg/dL NINF - 200 mg/dL [facility] Cholesterol in HDL [Mass/Vol] 42 mg/dL 40 - 60 mg/dL [facility] Comment on above: > or =60 mg/dl - LOW CARDIOVASCULAR RISK <40 mg/dl - HIGH CARDIOVASCULAR RISK LDL CHOLESTEROL CALCULATED 124.2 mg/dL [facility] Comment on above: <100 mg/dl OPTIMAL 100-129 mg/dl NEAR OR ABOVE OPTIMAL 130-159 mg/dl BORDERLINE HIGH 160-189 mg/dl HIGH >190 mg/dl VERY HIGH Magnesium [Mass/Vol] 22.8 mg/dL [facility] Triglyceride [Mass/Vol] 114 mg/dL NINF - 150 mg/dL [facility] Healthcar e Ambulatory Visit Summaryon 1 06-23-2023 Ambulatory Visit Summary Ambulatory Visit Summary JUAN MIGUEL JENNINGS :1950 Visit Date:04/23/2024 Ambulatory Visit Instructions Your Diagnosis Hypogonadism Your Care Team Attending Physician - KERI NOLASCO, Topher Ordoñez Primary Care Physician - DAKOTA NOLASCO, EDWARD J This Is Your Medications List Misc Prescription [...] AM EST With: Where: [facility] [address] [address]- Tuesday 10:45 AM EST With: KERI NOLASCO, Topher Ordoñez Where: [facility] [address] [address]- Medications What How Much When Instructions Unchanged [...] PSA History of colon cancer Hx of penitentiary use of blood thinners Hyperlipidemia Hypertension Hypogonadism [...] you for choosing us for your care. [facility] Ambulatory Visit Summaryon 1 Ambulatory Visit Summary Ambulatory Visit Summary JUAN MIGUEL JENNINGS :1950 Visit Date:03/27/2024 Ambulatory Visit Instructions Your Diagnosis Hypogonadism male Your Care Team Attending Physician - KERI NOLASCO, Topher Ordoñez Primary Care Physician - DAKOTA NOLASCO, JORDAN Brown This Is Your Medications List [facility] Prescription (METOPROLOL TARTRATE 100 MG TAB) aspirin [...] AM EST With: Where: [facility] [address] [address]- Tuesday 10:45 AM EST With: KERI NOLASCO, Topher Ordoñez Where: [facility] [address] [address]- Medications What How Much When Instructions Unchanged [...] PSA History of colon cancer Hx of penitentiary use of blood thinners Hyperlipidemia Hypertension Hypogonadism [...] for choosing us for your care. Normal [facility] CBC W/AUTO DIFFon 02-22-2024 ABS IMMATURE GRAN [...] on above: Result Comment: [facility] [address] [place], [place] [address]IA No. [id number] CAP Accreditation No. [id number] Inspector Plating: Shaunna Dee M.D. 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 Normal [facility] Urology Office/Clinic Noteon 12-05-2023 Urology Office/Clinic [...] [facility] [address], [place] [phone] Additional Instructions: 6 mos w/ T level [...] PSA History of colon cancer Hx of penitentiary use of blood thinners Hyperlipidemia Hypertension Hypogonadism [...] Oral, TID, (more content not included)... Normal [facility] Comment on above: Result Comment: Elec tronically Signed By: Topher STEVENSON MD.br\Date and Time Signed: 12/05/23 11:42 EDT\.br\Electronically Co-Signed By: Erica Marin.br\Date and Time Co-Signed: 12/05/23 11:40 EDT [facility] 11-22-2023 Lab Reports [id number] .00TIFF Normal [facility] 11-09-2023 Lab Reports [id number] .00TIFF Normal [facility] CBC W/AUTO DIFFon 10-25-2023 ABS IMMATURE GRAN [...] on above: Result Comment: [facility] [address] [place] [address] CLIA No. [id number] CAP Accreditation No. [id number] Inspector Plating: Shaunna Dee M.D. Platelets (Bld) [#/Vol] 141 [...] NOLASCO, Topher Ordoñez Primary Care Physician - JORDAN DUNCAN MD This Is Your Medications List [facility] Prescription (METOPROLOL TARTRATE 100 MG TAB) aspirin [...] 9:00 AM EDT Where: [facility] Ambulatory Visit Summaryon 0 09-09-2023 Ambulatory Visit Summary JUAN MIGUEL JENNINGS :1950 Visit Date:09/09/2023 Ambulatory Visit Instructions Your Diagnosis Hypogonadism Your Care Team Attending Physician - KERI NOLASCO, Topher Ordoñez Primary Care Physician - JORDAN DUNCAN MD This Is Your Medications List Misc Prescription [...] 8:30 AM EDT Where: [facility] 07-15-2023 Lab Reports [id number] .00TIFF [facility] 06-28-2023 Lab Reports [id number] .00TIFF [facility] Ambulatory Visit Summaryon 0 06-20-2023 Ambulatory Visit Summary JUAN MIGUEL JENNINGS :1950 Visit Date:06/20/2023 Ambulatory Visit Instructions Your Diagnosis Hypogonadism male Elevated PSA BPH with urinary obstruction Phimosis Urinary urgency Tests Performed Urnls Dip Stick Auto w/o Microscopy POC [id number] Your Care Team Attending Physician - KERI NOLASCO, Topher Ordoñez Primary Care Physician - JORDAN DUNCAN MD This Is Your Medications List oxybutynin (oxybutynin [...] 9:30 AM EST Where: [facility] Patient Educationon 06-20-19 Patient Education Urology Hypogonadism, Male Male hypogonadism [...] Follow these instructions at home: ? Take [id number] and prescription medicines only as told by [...] 01/22/2021 Document (more content not included)... 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 Normal [facility] Comment on above: Result Comment: Elec tronically Signed By: Topher STEVENSON MD\.br\Date and Time Signed: 06/20/23 11:28 EST\.br\Electronically Co-Signed By: Erica Marin\yoon\Date and Time Co-Signed: 06/20/23 11:26 EST [facility] 05-31-2023 Lab Reports [id number] .00TIFF Normal [facility] CBC W/AUTO DIFFon 04-26-2023 ABS NEUTROPHILS 3.94 [...] above: Result Comment: [facility] [address] [address] CLIA No. [id number] CAP Accreditation No. [id number] Inspector Plating: Shaunna Dee M.D. Platelets (Bld) [#/Vol] 125 [...] [Mass/Vol] 112 mg/dL Critically high 74-106 [facility] Comment on above: Performed By: #### P OCGLUC #### [facility] [address] [address] [address] Patria Sanders CBC AUTO DIFFon 09-15-2022 BASO # 0.0 103/ul Normal 0.0-0.1 [facility] Comment on above: Performed By: #### C BC #### [facility] [address] [address] [address] Patria Sanders Basophils/100 WBC (Bld) 0.5 % Normal 0.2-2.0 [facility] Comment on above: Performed By: #### C BC #### [facility] [address] [place] [address] Dr. Patria Sanders EO # 0.3 103/ul Normal 0.0-0.7 [facility] Comment on above: Performed By: #### C BC #### [facility] [address] [address] [address] Patria Sanders Eosinophils/100 WBC (Bld) 3.2 % Normal 0.9-7.0 [facility] Comment on above: Performed By: #### C BC #### [facility] [address] [place] [address] Dr. Patria Sanders Erythrocyte distribution width (RBC) [Ratio] 14.5 % Normal 11.0-15.0 [facility] Comment on above: Performed By: #### C BC #### [facility] [address] [place] [address] Dr. Patria Sanders Hematocrit (Bld) [Volume fraction] 49.0 % Normal 42.0-54.0 [facility] Comment on above: Performed By: #### C BC #### [facility] [address] [place] [address] Dr. Patria Sanders Hemoglobin (Bld) [Mass/Vol] 16.7 g/dL Normal 14.0-18.0 [facility] Comment on above: Performed By: #### C BC #### [facility] [address] [place] [address] Dr. Patria Sanders IG # 0.03 10e3/ul Normal 0.00-0.03 [facility] Comment on above: Performed By: #### C BC #### [facility] [address] [place] [address] Dr. Patria Sanders IG % 0.4 % Normal 0.0-0.5 [facility] Comment on above: Performed By: #### C BC #### [facility] [address] [place] [address] Dr. Patria Sanders LYMPH # 1.1 103/ul Critically low 1.2-3.8 [facility] Comment on above: Performed By: #### C BC #### [facility] [address] [place] [address] Dr. Patria Sanders Lymphocytes/100 WBC (Bld) 14.5 % Critically low 20.5-60.0 [facility] Comment on above: Performed By: #### C BC #### [facility] [address] [place] [address] Dr. Patria Sanders MANUAL DIFF REQ NO Normal [facility] Comment on above: Performed By: #### C BC #### [facility] [address] [place] [address] Dr. Patria Sanders MCH (RBC) [Entitic mass] 32.6 pg Normal 25.9-34.0 [facility] Comment on above: Performed By: #### C BC #### [facility] [address] [place] [address] Dr. Patria Sanders MCHC (RBC) [Mass/Vol] 34.1 g/dL Normal 29.9-35.2 [facility] Comment on above: Performed By: #### C BC #### [facility] [address] [place] [address] Dr. Patria Sanders MCV (RBC) [Entitic vol] 95.5 fL Critically high 80.0-94.0 [facility] Comment on above: Performed By: #### C BC #### [facility] [address] [place] [address] Dr. Patria Sanders MONO # 0.8 103/ul Normal 0.3-0.8 [facility] Comment on above: Performed By: #### C BC #### [facility] [address] [place] [address] Dr. Patria Sanders Monocytes/100 WBC (Bld) 9.6 % Normal 1.7-12.0 [facility] Comment on above: Performed By: #### C BC #### [facility] [address] [place] [address] Dr. Patria Sanders NEUT # 5.6 103/ul Normal 1.4-6.5 [facility] Comment on above: Performed By: #### C BC #### [facility] [address] [place] [address] Dr. Patria Sanders Neutrophils/100 WBC (Bld) 71.8 % Normal 43.0-75.0 [facility] Comment on above: Performed By: #### C BC #### [facility] [address] [place] [address] Dr. Patria Sanders Platelet mean volume (Bld) [Entitic vol] 11.6 fL Normal 9.5-13.5 [facility] Comment on above: Performed By: #### C BC #### [facility] [address] [place] [address] Dr. Patria Sanders PLT 154 103/ul Normal 150-450 [facility] Comment on above: Performed By: #### C BC #### [facility] [facility] [address] [place] [address] Dr. Patria Sanders RBC 5.13 106/ul Normal 4.70-6.10 [facility] Comment on above: Performed By: #### C BC #### [facility] [address] [place] [address] Dr. Patria Sanders WBC 7.8 103/ul Normal 4.0-11.0 [facility] Comment on above: Performed By: #### C BC #### [facility] [address] [place] [address] Dr. Patria Sanders PROF CHEM 8 (BAS METB)on Anion gap [Moles/Vol] 11.4 mmol/L Normal [facility] Comment on above: Performed By: #### B MP #### [facility] [address] [place] [address] Dr. Patria Sanders Calcium [Mass/Vol] 9.1 mg/dL Normal 8.5-10.1 [facility] Comment on above: Performed By: #### B MP #### [facility] [address] [place] [address] Dr. Patria Sanders Chloride [Moles/Vol] 104 mmol/L Normal 98-107 [facility] Comment on above: Performed By: #### B MP #### [facility] [address] [place] [address] Dr. Patria Sanders CO2 [Moles/Vol] 28.7 mmol/L Normal 21.0-32.0 [facility] Comment on above: Performed By: #### B MP #### [facility] [address] [place] [address] Dr. Patria Sanders Creatinine [Mass/Vol] 0.80 mg/dL Normal 0.70-1.30 [facility] Comment on above: Performed By: #### B MP #### [facility] [address] [place] [address] Dr. Patria Sanders EGFR-AF SWISS >60 Normal >=60 [facility] Comment on above: Performed By: #### B MP #### [facility] [address] [address] [address] Patria Sanders EGFR-NON AF SWISS >60 Normal >=60 [facility] Comment on above: Performed By: #### B MP #### [facility] [address] [place] [address] Dr. Patria Sanders Glucose [Mass/Vol] 101 mg/dL Normal 74-106 [facility] Comment on above: Performed By: #### B MP #### [facility] [address] [place] [address] Dr. Patria Sanders Potassium [Moles/Vol] 4.1 mmol/L Normal 3.5-5.1 [facility] Comment on above: Performed By: #### B MP #### [facility] [address] [place] [address] Dr. Patria Sanders Sodium [Moles/Vol] 140 mmol/L Normal 136-145 [facility] Comment on above: Performed By: #### B MP #### [facility] [address] [place] [address] Dr. Patria Sanders Urea nitrogen [Mass/Vol] 11.0 mg/dL Normal 7.0-18.0 [facility] Comment on above: Performed By: #### B MP #### [facility] [address] [place] [address] Dr. Patria Sanders Urea nitrogen/Creatinine [Mass ratio] 13.8 mg/mg Normal [facility] Comment on above: Performed By: #### B MP #### [facility] [address] [place] [address] Dr. Patria Sanders PROTIMEon 09-15-2022 INR Coag (PPP) [Relative time] 1.02 {INR} Normal [facility] Comment on above: Performed By: #### P TT, PT #### [facility] [address] [place] [address] Dr. Patria Sanders INR GUIDELINES SEE BELOW Normal [facility] Comment on above: Result Comment: SANTO RED INR: 2.0 - 3.0 CONDITIONS NOT LISTED BELOW 2.5 - 3.5 FOR PROSTHETIC HEART VALVE REPLACEMENT 2.5 - 3.5 RECURRENT THROMBOSIS Performed By: #### P TT, PT #### [facility] [address] [place] [address] Dr. Patria Sanders PT Coag (PPP) [Time] 10.8 s Normal 9.0-11.6 [facility] Comment on above: Performed By: #### P TT, PT #### [facility] [address] [place] [address] Dr. Patria Sanders PTTon 09-15-2022 aPTT Coag (Bld) [Time] 32.0 s Normal 22.3-36.2 [facility] Comment on above: Performed By: #### P TT, PT #### [facility] [address] [place], [place] [address] Dr. Patria Sanders Covid-19 PCR ([facility])on 01-04 SARS-CoV-2 (COVID-19) RNA NANCY+probe Ql (Unsp spec) Not detected Normal NOT DETECTED [facility] Comment on above: Result Comment: This test is not yet approved or cleared by the [place] FDA. When there are no FDA-approved or cleared tests available, and other criteria are met, FDA can make tests available under an emergency access mechanism called an Emergency Use Authorization (EUA). The EUA for this test is supported by the Associate Product Manager of Health and Human Service's (HHS's) declaration [...] consistent with SARS-CoV-2. Performed By: #### C VDTB #### [facility] [address] [place], [place] [address] Dr. Patria Sanders Hemoglobin A1Con 09-24-2021 EAG 128.37 Normal [facility] Comment on above: Performed By: #### A 1C #### [facility] [address] [place], [place] [id number] HbA1c (Bld) [Mass fraction] 6.1 % High 4.0-6.0 [facility] Comment on above: Performed By: #### A 1C #### [facility] [address] [place], [place] [id number] Testosteroneon 05-11-2021 TESTOS 314.70 ng/dL Normal 193.00-740.00 [facility] [employer] Comment on above: Performed By: #### T EST #### [facility] [address] [place], [place] [id number] XR femur BIon 05-06-2021 XR femur BI [facility] [place] [address] [place] [address] XRay Report Signed Patient: Juan Miguel Jennings MR#: [id number] 25 : 1950 Acct:[id number] Age/Sex: 71 / M ADM Date: 05/06/21 Loc: ICXD [facility]: Maxwell Staley PA-C Ordering Provider: Maxwell Staley PA-C Date of Service: 05/06/21 XR/XR chest 2V*: Z01.818 ([id number]) XR/XR femur BI: Z01.818 ([id number]) XR/XR tibia/fibula BI: . Copies to: Maxwell [...] Rosanne Echeverria M.D.05/06/2021 3:12 PM Dictation Location: [place] [address] Transcribed By: [facility] 05/06/21 1512 Dictated By: Rosanne Echeverria MD 05/06/21 1506 Signed By: 05/06/21 1512 [facility] Progress Noteon 10-12-2017 HIM IP Note OR [employer] [facility] Vital Signs Date Time Vital Sign Value Performing Clinician Facility 05-15-2024 10:21-0500 Body height 198.1 cm Brody Rus DPM Work Phone: [facility] 05-15-2024 10:21-0500 Body mass index (BMI) [Ratio] 40.45 kg/m2 Brody Rusher DPM Work Phone: [facility] 05-15-2024 10:21-0500 Body weight 158.76 kg Brody Rusher DPM Work Phone: [facility] 04-23-2024 10:41-0500 Body height 198.1 cm Brody Rusher DPM Work Phone: [facility] 04-23-2024 10:41-0500 Body mass index (BMI) [Ratio] 40.45 kg/m2 Brody Rusher DPM Work Phone: [facility] 04-23-2024 10:41-0500 Body weight 158.76 kg Brody Rusher DPM Work Phone: [facility] 03-29-2024 12:49-0400 Body height 198.1 cm Brody Rusher DPM Work Phone: [facility] 03-29-2024 12:49-0400 Body mass index (BMI) [Ratio] 40.45 kg/m2 Brody Rusher DPM Work Phone: [facility] 03-29-2024 12:49-0400 Body weight 158.76 kg Brody Rusher DPM Work Phone: [facility] 03-27-2024 14:00-0400 Body height 198.1 cm Jordan Duncan MD Work Phone: [facility] 03-27-2024 14:00-0400 Body mass index (BMI) [Ratio] 40.45 kg/m2 Jordan Duncan MD Work Phone: [facility] 03-27-2024 14:00-0400 Body weight 158.76 kg Jordan Duncan MD Work Phone: [facility] 03-27-2024 14:00-0400 Diastolic blood pressure 76 mm[Hg] Jordan Duncan MD Work Phone: [facility] 03-27-2024 14:00-0400 Heart rate 71 /min Jordan Duncan MD Work Phone: [facility] 03-27-2024 14:00-0400 SaO2% (BldA) [Mass fraction] 97 % Jordan Duncan MD Work Phone: [facility] 03-27-2024 14:00-0400 Systolic blood pressure 128 mm[Hg] Jordan Duncan MD Work Phone: [facility] 03-13-2024 09:41-0400 Body height 198.1 cm Brody Ibrahim DPM Work Phone: [facility] 03-13-2024 09:41-0400 Body mass index (BMI) [Ratio] 40.45 kg/m2 Brody Ibrahim DPM Work Phone: [facility] 03-13-2024 09:41-0400 Body weight 158.76 kg Brody Ibrahim DPM Work Phone: [facility] 12-05-2023 10:38-0400 Blood Pressure Location Topher STEVENSON [facility] 12-05-2023 10:38-0400 Body temperature 98.6 [degF] Topher STEVENSON [facility] 12-05-2023 10:38-0400 Diastolic blood pressure 86 mm[Hg] Topher STEVENSON [facility] 12-05-2023 10:38-0400 Heart rate 69 /min Topher STEVENSON [facility] 12-05-2023 10:38-0400 Respiratory rate 16 /min Topher STEVENSON [facility] 12-05-2023 10:38-0400 Systolic blood pressure 136 mm[Hg] Topher STEVENSON [facility] 07-19-2023 10:37-0500 Body height 198.1 cm Brody Ibrahim DPM Work Phone: [facility] 07-19-2023 10:37-0500 Body mass index (BMI) [Ratio] 39.87 kg/m2 Brody Ibrahim DPM Work Phone: [facility] 07-19-2023 10:37-0500 Body weight 156.49 kg Brody Alexandria DPM Work Phone: [facility] 06-20-2023 10:33-0500 Blood Pressure Location Topher STEVENSON [facility] 06-20-2023 10:33-0500 Diastolic blood pressure 86 mm[Hg] Topher STEVENSON [facility] 06-20-2023 10:33-0500 Heart rate 70 /min Topher STEVENSON [facility] 06-20-2023 10:33-0500 Respiratory rate 16 /min Topher STEVENSON [facility] 06-20-2023 10:33-0500 Systolic blood pressure 139 mm[Hg] Topher STEVENSON [facility] 11-05-2022 10:12-0400 Blood Pressure Location Topher STEVENSON [facility] 11-05-2022 10:12-0400 Diastolic blood pressure 78 mm[Hg] Topher STEVENSON [facility] 11-05-2022 10:12-0400 Heart rate 68 /min Topherpeter STEVENSON [facility] 11-05-2022 10:12-0400 Respiratory rate 16 /min Topher STEVENSON [facility] 11-05-2022 10:12-0400 Systolic blood pressure 130 mm[Hg] Topher STEVENSON [facility] 11-03-2022 14:34-0400 Body temperature 97.5 [degF] Mth[facility] Schedule [facility] 11-03-2022 14:34-0400 Diastolic blood pressure 77 mm[Hg] [facility] Schedule [facility] 11-03-2022 14:34-0400 Heart rate 72 /min [facility] 11-03-2022 14:34-0400 Respiratory rate 18 /min [facility] Schedule [facility] 11-03-2022 14:34-0400 Systolic blood pressure 140 mm[Hg] [facility] 06-18-2022 08:55-0500 Blood Pressure Location Topher STEVENSON [facility] 06-18-2022 08:55-0500 Diastolic blood pressure 82 mm[Hg] Topher STEVENSON [facility] 06-18-2022 08:55-0500 Heart rate 80 /min Topher STEVENSON [facility] 06-18-2022 08:55-0500 Respiratory rate 16 /min Topher STEVENSON [facility] 06-18-2022 08:55-0500 Systolic blood pressure 132 mm[Hg] Topher STEVENSON [facility] 05-17-2022 09:43-0500 Blood Pressure Location Topher STEVENSON [facility] 05-17-2022 09:43-0500 Diastolic blood pressure 92 mm[Hg] Topher STEVENSON [facility] 05-17-2022 09:43-0500 Heart rate 63 /min Topher STEVENSON [facility] 05-17-2022 09:43-0500 Systolic blood pressure 143 mm[Hg] Topher STEVENSON [facility] 02-01-2022 09:48-0400 Blood Pressure Location Topher STEVENSON [facility] 02-01-2022 09:48-0400 Diastolic blood pressure 66 mm[Hg] Topher STEVENSON [facility] 02-01-2022 09:48-0400 Heart rate 84 /min Topher STEVENSON [facility] 02-01-2022 09:48-0400 Respiratory rate 16 /min Topher STEVENSON [facility] 02-01-2022 09:48-0400 Systolic blood pressure 98 mm[Hg] Topher STEVENSON [facility] 01-28-2022 13:48-0400 Diastolic blood pressure 76 mm[Hg] [facility] 01-28-2022 13:48-0400 Heart rate 56 /min [facility] 01-28-2022 13:48-0400 Respiratory rate 18 /min [facility] Schedule [facility] 01-28-2022 13:48-0400 Systolic blood pressure 135 mm[Hg] [facility] Schedule [facility] 01-28-2022 13:25-0400 Body temperature 97.39 [degF] [facility] Schedule [facility] 10-22-2020 12:25-0400 Body temperature 97.81 [degF] Mth[facility] Schedule [facility] Work Phone: 10-22-2020 12:25-0400 Heart rate 67 /min [facility] 07-27-2019 08:03-0500 Body Temperature 96.3 [degF] [facility] [place] 07-27-2019 08:03-0500 BP Diastolic 80 mm[Hg] [facility] [place] [facility] [place] 07-27-2019 08:03-0500 BP Systolic 129 mm[Hg] [facility] Schedule [facility] [place] [facility] [place] 07-27-2019 08:03-0500 Pulse (Heart Rate) 63 /min [facility] Schedule [facility] [place] [place] 07-27-2019 08:03-0500 Respiratory Rate 20 /min [facility] Schedule [facility] [place] [place] 03-13-2019 08:02-0400 Body Temperature 96.69 [degF] [facility] Schedule [facility] [place] [place] 03-13-2019 08:02-0400 BP Diastolic 83 mm[Hg] [facility] Schedule [facility] [place] [facility] [place] 03-13-2019 08:02-0400 BP Systolic 162 mm[Hg] [facility] Schedule [facility] [place] [facility] [place] 03-13-2019 08:02-0400 Pulse (Heart Rate) 74 /min [facility] Schedule [facility] [place], [place] 03-13-2019 08:02-0400 Respiratory Rate 20 /min [facility] Schedule [facility] [place] 01-12-2019 08:03-0400 Body Temperature 96.91 [degF] [facility] [place] [place] 01-12-2019 08:03-0400 BP Diastolic 87 mm[Hg] [facility] [place] [facility] [place] 01-12-2019 08:03-0400 BP Systolic 152 mm[Hg] [facility] [place] [facility] [place] 01-12-2019 08:03-0400 Pulse (Heart Rate) 63 /min [facility] [place] [place] 01-12-2019 08:03-0400 Respiratory Rate 20 /min [facility] [place] [place] Encounters Encounter Date Encounter Type Care Provider Facility Start: 05-21-2024 ambulatory Topher Duff ty:DEBBIE Siegel Start: 05-15-2024 End: 05-15-2024 ambulatory BRODY IBRAHIM Not Available Start: 05-15-2024 End: 05-15-2024 Postop follow up visit related to original px Brody Ibrahim DPM Work Phone: [facility] Comment on above: Diabetic polyneuropa thy associated with type 2 diabetes mellitus (CMS/HCC) (Primary Dx); Nontraumatic amputation of foot, left (CMS/HCC); Nontraumatic amputation of foot, right (CMS/HCC) Start: 05-08-2024 End: 05-08-2024 Clinisync Result Encounter Generic External Data Provider [facility] External Department Unsolicited Start: 05-08-2024 End: 05-08-2024 Clinisync Result Encounter Generic External Data Provider [facility] External Department Unsolicited Start: 05-08-2024 ambulatory Topher Duff ty:DEBBIE Siegel Start: 05-02-2024 End: 05-02-2024 ambulatory [facility] Start: 04-23-2024 End: 04-23-2024 Bamboo flowsheet Brody Ibrahim DPM Work Phone: [facility] Start: 04-23-2024 End: 04-23-2024 Bamboo flowsheet Brody Ibrahim DPM Work Phone: [facility] Start: 04-23-2024 End: 04-23-2024 ambulatory BRODY IBRAHIM Not Available Start: 04-23-2024 End: 04-23-2024 Patient encounter procedure Topher STEVENSON [facility] Comment on above: Diabetic polyneuropa thy associated with type 2 diabetes mellitus (CMS/HCC) (Primary Dx); Nontraumatic amputation of foot, left (CMS/HCC); Nontraumatic amputation of foot, right (CMS/HCC) Start: 04-09-2024 End: 04-09-2024 Telephone encounter Brody Ibrahim DPM Work Phone: [facility] Comment on above: Advice Only (orthoti cs) Start: 03-29-2024 End: 03-29-2024 Bamboo flowsheet Brody Ibrahim DPM Work Phone: [facility] Start: 03-29-2024 End: 03-29-2024 Bamboo flowsheet Brody Ibrahim DPM Work Phone: [facility] Start: 03-29-2024 End: 03-29-2024 Postop follow up visit related to original px Brody Ibrahim DPM Work Phone: [facility] Comment on above: Diabetic polyneuropa thy associated with type 2 diabetes mellitus (CMS/HCC) (Primary Dx); Nontraumatic amputation of foot, left (CMS/HCC); Nontraumatic amputation of foot, right (CMS/HCC) Start: 03-29-2024 End: 03-29-2024 ambulatory BRODY IBRAHIM Not Available Start: 03-27-2024 End: 03-27-2024 Bamboo flowsheet Jordan Duncan MD Work Phone: [facility] Start: 03-27-2024 End: 03-27-2024 [...] microalbuminuria, without long-term current use of insulin ([facility]/HCC); Microalbuminuria; Essential hypertension ([facility]); Mixed hyperlipidemia ([facility]); Adverse reaction to statin medication; Former smoker; Morbid obesity ([facility]) Start: 03-27-2024 End: 03-27-2024 ambulatory JORDAN DUNCAN Not Available Start: 03-27-2024 End: 03-27-2024 ambulatory Topher STEVENSON Facility:[facility] Start: 03-27-2024 End: 03-27-2024 Patient encounter procedure Topher STEVENSON [facility] Start: 03-13-2024 End: 03-13-2024 Bamboo flowsheet Brody Ibrahim DPM Work Phone: [facility] Start: 03-13-2024 End: 03-13-2024 Bamboo flowsheet Brody Ibrahim DPM Work Phone: [facility] Start: 03-13-2024 End: 03-13-2024 Patient encounter procedure Brody Ibrahim DPM Work Phone: [facility] Comment on above: Acquired keratoderma (Primary Dx); Diabetic polyneuropathy associated with type 2 diabetes mellitus (CMS/HCC); Nontraumatic amputation of foot, left (CMS/HCC); Nontraumatic amputation of foot, right (CMS/HCC) Start: 03-13-2024 End: 03-13-2024 ambulatory BRODY IBRAHIM Not Available Start: 02-27-2024 End: 02-27-2024 ambulatory Topher STEVENSON Facility:[facility] Start: 02-27-2024 End: 02-27-2024 Patient encounter procedure Topher STEVENSON [facility] Start: 01-31-2024 End: 01-31-2024 ambulatory Fernanda X Orzech Facility:[facility] Start: 01-31-2024 End: 01-31-2024 Patient encounter procedure Fernanda X Orzech [facility] Start: 01-10-2024 End: 01-10-2024 ambulatory BRODY IBRAHIM Not Available Start: 01-03-2024 End: 01-03-2024 ambulatory Topher STEVENSON Facility:[facility] Start: 12-06-2023 End: 12-06-2023 ambulatory BRODY IBRAHIM Not Available Start: 12-05-2023 End: 12-05-2023 ambulatory Topher STEVENSON Facility:[facility] Start: 12-05-2023 End: 12-05-2023 Patient encounter procedure Topher STEVENSON [facility] Start: 11-09-2023 End: 11-09-2023 ambulatory WILLI [facility] Start: 11-07-2023 End: 11-07-2023 ambulatory Topher STEVENSON Facility:[facility] Start: 11-07-2023 End: 11-07-2023 Patient encounter procedure Topher STEVENSON [facility] Start: 10-27-2023 End: 10-27-2023 ambulatory JORDAN DUNCAN Not Available Start: 10-12-2023 End: 10-12-2023 ambulatory JORDAN DUNCAN Not Available Start: 10-07-2023 End: 10-07-2023 ambulatory Topherpeter STEVENSON Facility:[facility] Start: 10-07-2023 End: 10-07-2023 Patient encounter procedure Topher R KERI [facility] Start: 09-27-2023 End: 09-27-2023 ambulatory BRODY IBRAHIM Not Available Start: 09-09-2023 End: 09-09-2023 ambulatory Topher R STEVENSON Facility:[facility] Start: 09-09-2023 End: 09-09-2023 Patient encounter procedure Topher R KERI [facility] Start: 08-15-2023 End: 08-15-2023 ambulatory Topherpeter STEVENSON Facility:[facility] Start: 08-15-2023 End: 08-15-2023 Patient encounter procedure Topher STEVENSON [facility] Start: 07-19-2023 Bamboo flowsheet Brody Tyler er DPM Work Phone: [facility] Start: 07-19-2023 Bamboo flowsheet Brody Tyler er DPM Work Phone: [facility] Start: 07-19-2023 End: 07-19-2023 ambulatory BRODY IBRAHIM Not Available Start: 07-19-2023 End: 07-19-2023 Patient encounter procedure Brody Ibrahim DPM Work Phone: [facility] Comment on above: Dermatophytosis of n ail (Primary Dx); Dystrophic nail; Diabetic polyneuropathy associated with type 2 diabetes mellitus (CMS/HCC); Nontraumatic amputation of foot, right (CMS/HCC); Nontraumatic amputation of foot, left (CMS/HCC); Acquired keratoderma Start: 07-18-2023 End: 07-18-2023 ambulatory Topher STEVENSON Facility:[facility] Start: 07-18-2023 End: 07-18-2023 Patient encounter procedure Topher STEVENSON [facility] Start: 06-20-2023 End: 06-20-2023 ambulatory Topher STEVENSON Facility:[facility] Start: 06-20-2023 End: 06-20-2023 Patient encounter procedure Topher STEVENSON [facility] [employer] Start: 05-12-2023 End: 05-12-2023 ambulatory WILLI SANCHEZ [facility] Start: 05-09-2023 End: 05-09-2023 Patient encounter procedure Topher STEVENSON [facility] [employer] Start: 04-04-2023 End: 04-04-2023 Patient encounter procedure Topher STEVENSON [facility] [employer] Start: 02-08-2023 End: 02-08-2023 Patient encounter procedure JORDAN DUNCAN [facility] [employer] Start: 01-03-2023 End: 01-03-2023 Patient encounter procedure Topher STEVENSON [facility] [employer] Start: 12-03-2022 End: 12-03-2022 Patient encounter procedure Topher STEVENSON [facility] Start: 11-05-2022 End: 11-05-2022 Patient encounter procedure Topher STEVENSON [facility] Start: 11-03-2022 End: 11-03-2022 [facility] Comment on above: Polycythemia (Primar y Dx) Start: 10-25-2022 End: 10-26-2022 ambulatory ARNOLD PEOPLES Facility:[facility] Start: 10-05-2022 End: 10-06-[address] JORDAN DUNCAN . Facility:[facility] Start: 10-05-2022 End: 10-05-2022 Patient encounter procedure Topher STEVENSON [facility] Start: 09-30-2022 End: 09-30-[address] TOPHER STEVENSON . Facility:[facility] Start: 09-27-2022 End: 09-28-2022 ambulatory ARNOLD PEOPLES Facility:[facility] Start: 09-20-2022 End: 09-21-2022 ambulatory ENEDINA BOSS Facility:[facility] Start: 09-20-2022 Encounter for preprocedural cardiovascular examination DR TOPHER STEVENSON . [facility] Start: 09-20-2022 Encounter for preprocedural laboratory examination DR TOPHER STEVENSON . [facility] Start: 09-20-2022 Encounter for preprocedural respiratory examination DR TOPHER STEVENSON . [facility] Start: 09-15-2022 End: 09-16-[address] TOPHER STEVENSON . Facility:[facility]1 Start: 09-15-2022 End: 09-16-2022 Encounter for preprocedural laboratory examination DR TOPHER STEVENSON . Facility:[facility] Start: 09-06-2022 End: 09-06-2022 Patient encounter procedure Topher STEVENSON [facility] Start: 06-18-2022 End: 06-18-2022 Patient encounter procedure Topher STEVENSON [facility] [employer] Start: 05-20-2022 End: 05-21-2022 ambulatory [facility] Facility:[facility]1 Start: 05-17-2022 End: 05-17-2022 Patient encounter procedure Topher STEVENSON [facility] [employer] Start: 04-21-2022 End: 04-22-2022 ambulatory [facility] Facility:[facility]1 Start: 04-21-2022 End: 04-21-2022 Patient encounter procedure Mandy Schaefer [facility] [employer] Start: 04-09-2022 End: 04-10-2022 ambulatory [facility] Facility:[facility]1 Start: 03-31-2022 End: 03-31-2022 Patient encounter procedure Mandy Schaefer [facility] [employer] Start: 03-22-2022 End: 03-23-2022 ambulatory [facility] Facility:[facility]1 Start: 03-03-2022 End: 03-03-2022 Patient encounter procedure Mandy Schaefer [facility] [employer] Start: 02-01-2022 End: 02-01-2022 Patient encounter procedure Topher STEVENSON [facility] [employer] Start: 01-28-2022 End: 01-28-2022 Subsequent hospital visit by physician [facility] Schedule [facility] Comment on above: Polycythemia (Primar y Dx) Start: 01-18-2022 End: 01-18-[address] JORDAN DUNCAN . Facility:[facility]1 Start: 01-06-2022 End: 01-07-2022 ambulatory [facility] Facility:[facility]1 Start: 12-21-2021 End: 12-21-2021 Patient encounter procedure Topher STEVENSON [facility] Start: 11-23-2021 End: 11-23-2021 Patient encounter procedure Topher STEVENSON [facility] Start: 10-26-2021 End: 10-26-2021 Patient encounter procedure Topher STEVENSON [facility] Start: 09-28-2021 End: 09-28-2021 Patient encounter procedure Topher STEVENSON [facility] Start: 08-31-2021 End: 08-31-2021 Patient encounter procedure Topher STEVENSON [facility] Start: 10-22-2020 End: 10-22-2020 Subsequent hospital visit by physician [facility] Room 9 Schedule [facility] Comment on above: Polycythemia (Primar y Dx) Start: 07-27-2019 End: 07-27-2019 Subsequent [facility] Comment on above: Polycythemia (Primar y Dx) Start: 03-13-2019 End: 03-13-2019 Subsequent hospital visit by physician [facility] Room 9 Schedule [facility] Comment on above: Polycythemia (Primar y Dx) Start: 01-12-2019 End: 01-12-2019 Subsequent hospital visit by physician [facility] Room 9 Schedule [facility] Start: 02-16-2018 End: 02-17-2018 Patient encounter DEFAULT PHYSICIAN Facility:[facility] Procedures Date Procedure Procedure Detail Performing Clinician Start: 05-08-2024 ALL LIPID PROFILE (FASTING) Generic External Data Provider Start: 09-30-2022 Circumcision Topher JENSEN Start: 12-17-2020 Colonoscopy Brody pelayo DPM Work Phone: Start: 05-23-2019 foot surgery Topher JENSEN Start: 05-13-2014 History of placement of stent for coronary artery disease S/P JORY - LCX & RCA ([id number]. kabour) [facility] Schedule BACK SURGERY Topher STEVENSON Placement of stent Topher OSEGUERA [facility] SURGERY Agustindee STEVENSON RIGHT VEIN REMOVED F ROM LEG Topher STEVENSON Plan of Treatment Date Care Activity Detail Author Start: 12-17-2030 Screening for malignant neoplasm of colon [facility] Start: 09-29-2025 Glaucoma screening Diabetes: Retinopathy Screening [facility] Start: 10-04-2024 Urine screening for protein Diabetes: Urine Protein Screening [facility] Start: 09-18-2024 End: 09-18-2024 Patient encounter procedure [facility] CI FM 100 Start: 08-25-2024 End: 03-27-2025 Comprehensive metabolic 2000 panel - Serum or Plasma Comprehensive metabolic panel Lab Routine Type 2 diabetes mellitus with diabetic polyneuropathy, without long-term current use of insulin ([facility]) Essential hypertension ([facility]/HCC) Expected: 08/25/2024, Expires: 03/27/2025 [facility] Work Phone: Comment on above: Expected: 08/25/2024, Expires: Start: 08-25-2024 End: 03-27-2025 Hemoglobin A1c/Hemoglobin.total in Blood Hemoglobin A1c Lab Routine Type 2 diabetes mellitus with diabetic polyneuropathy, without long-term current use of insulin ([facility]/HCC) Expected: 08/25/2024, Expires: 03/27/2025 [facility] Comment on above: Expected: 08/25/2024, Expires: Start: 08-25-2024 End: 03-27-2025 Lipid 1996 panel - Serum or Plasma Lipid panel Lab Routine Mixed hyperlipidemia ([facility]/H[facility]) Expected: 08/25/2024, Expires: 03/27/2025 [facility] Comment on above: Expected: 08/25/2024, Expires: Start: 06-21-2024 Hemoglobin A1c measurement Diabetes: Hemoglobin A1C [facility] Start: 05-17-2024 Medicare Annual Wellness (AWV) Medicare Annual Wellness (AWV) [facility] Start: 05-15-2024 End: 05-15-2024 Patient encounter procedure 05/15/2024 10:15 AM EST Office Visit [facility] [address] [place] [phone] Brody Ibrahim DPM [address] [place] [address] [facility] Start: 04-23-2024 End: 04-23-2024 Patient encounter procedure 04/23/2024 11:00 AM EST Office Visit [facility] [address] [place] [address] Brody Ibrahim DPM [address] [place] [address] [facility] Start: 04-09-2024 End: 04-09-2024 Patient encounter procedure 04/09/2024 9:30 AM EST Office Visit [facility] [address] [address] [place] [address] Jordan Duncan MD [address] [place] [address] [facility] Start: 03-29-2024 End: 03-29-2024 Patient encounter procedure 03/29/2024 1:00 PM EDT Office Visit [facility] [address] [place] [phone] Brody Ibrahim DPM [address] [place], [place] [address] Arrived [facility] Comment on above: Arrived Start: 03-27-2024 End: 03-27-2024 Patient encounter procedure 03/27/2024 2:00 PM EDT Office Visit [facility] [address] [address] Jordan Duncan MD [address] [place] [address] Type 2 diabetes mellitus with diabetic polyneuropathy, [...] procedure 03/13/2024 9:45 AM EDT Office Visit [facility] [address] [place] [phone] Brody Ibrahim DPM [address] [place], [place] [phone] Arrived [facility] Comment on above: Arrived Start: 02-05-2024 Influenza vaccination Influenza Vaccine (#1) [facility] Start: 01-05-2024 Hemoglobin A1c measurement Diabetes: Hemoglobin A1C [facility] Start: 11-26-2023 Glaucoma screening Diabetes: Retinopathy Screening [facility] Start: 10-29-2023 GFR test (Diabetes, CKD 3-4, OR last GFR 15-59) GFR test (Diabetes, CKD 3-4, OR last GFR 15-59) [facility] Start: 10-26-2023 End: 10-26-2023 Patient encounter procedure 10/26/2023 Office Visit Oncology Newton Stevenson MD [address] [place] [address] [facility] Start: 10-12-2023 End: 10-12-2023 Patient encounter procedure 10/12/2023 9:30 AM EDT Office Visit [facility] [address] [place] [address] Jordan Duncan MD [address] [place] [address] [facility] Start: 09-27-2023 End: 09-27-2023 Patient encounter procedure 09/27/2023 11:00 AM EDT Procedure Visit [facility] [address] [place] [phone] Brody Ibrahim, DP [address] [place] [address] [facility] Start: 07-14-2023 Hemoglobin A1c measurement Diabetes: Hemoglobin A1C [facility] Start: 10-20-2022 End: 10-20-2022 Patient encounter procedure 10/20/2022 Office Visit Oncology Newton Stevenson MD [address] [place], [place] [id number] [facility] Start: 09-24-2022 Hemoglobin A1c measurement A1C test (Diabetic or Prediabetic) [facility] Start: 02-04-2022 Influenza vaccination Flu vaccine (#1) [facility] Start: 11-11-2021 Urine screening for protein [facility] Start: 10-21-2021 End: 10-21-2021 Patient encounter procedure 10/21/2021 Office Visit Oncology Newton Stevenson MD [address] [place] [address] [facility] Start: 10-16-2021 COVID-19 Vaccine (4 - Booster for Pfizer series) COVID-19 Vaccine (4 - Booster for Pfizer series) [facility] Start: 10-14-2021 Lipid panel Lipids [facility] Start: 10-24-2019 End: 10-24-2019 Office Visit [facility] Start: 07-31-2019 End: 07-31-2019 Appointment 07/31/2019 Appointment Infusion Therapy [facility] Start: 04-30-2019 End: 04-30-2019 Appointment 04/30/2019 Appointment Infusion Therapy [facility] Start: 02-04-2019 Influenza vaccination Flu vaccine (#1) [place] Start: 11-26-2018 Annual Wellness Visit (AWV) Annual Wellness Visit (AWV) [facility] Start: 08-17-2017 Creatinine measurement Creatinine monitoring [facility] [employer] Work Phone: Start: 08-17-2017 Creatinine monitoring Creatinine monitoring [place], [place] Start: 08-17-2017 Potassium monitoring Potassium monitoring [place], [place] Start: 08-04-2017 A1C test (Diabetic or Prediabetic) A1C test (Diabetic or Prediabetic) [place] Start: 08-04-2017 Hemoglobin A1c measurement A1C test (Diabetic or Prediabetic) [facility] Start: 02-10-2017 Abdominal aortic aneurysm screening AAA screen [facility] Start: 02-10-2017 Pneumococcal 65+ years Vaccine (1 of 2 - PCV13) Pneumococcal 65+ years Vaccine (1 of 2 - PCV13) [place] Start: 01-29-2017 Shingles Vaccine (2 of 3) Shingles Vaccine (2 of 3) [facility] Start: 02-10-2015 Annual Wellness Visit (AWV) Annual Wellness Visit (AWV) [place] Start: 02-10-2002 Colon cancer screen colonoscopy Colon cancer screen colonoscopy [place] Start: 02-10-2002 Screening for malignant neoplasm of colon Colon cancer screen colonoscopy [facility] Work Phone: Start: 02-10-2002 Shingles Vaccine (1 of 2) Shingles Vaccine (1 of 2) [place], [place] Start: 02-10-1997 Screening for malignant neoplasm of colon [facility] Start: 02-10-1971 DTaP/Tdap/Td vaccine (1 - Tdap) DTaP/Tdap/Td vaccine (1 - Tdap) [facility] Start: 02-10-1971 Hepatitis B vaccine (1 of 3 - Risk 3-dose series) Hepatitis B vaccine (1 of 3 - Risk 3-dose series) [place] Start: 02-10-1970 Diabetic microalbuminuria test Diabetic microalbuminuria test [place] Start: 02-10-1970 Diabetic retinal exam Diabetic retinal exam [facility] Start: 02-10-1970 Glaucoma screening Diabetic retinal exam [facility] Start: 02-10-1970 Hepatitis C screening Hepatitis C screen [facility] Start: 02-10-1970 Urine screening for protein Diabetic Alb to Cr ratio (uACR) test [facility] Start: 1964 Depression Screen Depression Screen [facility] Start: 02-10-1963 DTaP/Tdap/Td vaccine (1 - Tdap) DTaP/Tdap/Td vaccine (1 - Tdap) [place] Start: 02-10-1962 [object Object] Diabetic foot exam [place] Start: 02-10-1962 Diabetic foot examination Diabetic foot exam [facility] Start: 02-10-1962 Diabetic retinal exam Diabetic retinal exam [place] Start: 02-10-1962 Lipid panel [facility] Start: 02-10-1962 Lipid screen Lipid screen [place], [place] Start: 1952 Annual Wellness Visit (AWV) Annual Wellness Visit (AWV) [facility] Start: 1950 Hepatitis C screen Hepatitis C screen [place], [place] Start: 1952 Hepatitis C screening Hepatitis C screen [facility] Work Phone: Start: 1950 Screening for malignant neoplasm of colon [facility] Immunizations Immunization Date Immunization Notes Care Provider Shania durham 03-28-2024 influenza, seasonal, injectable Brody Ibrahim DPM Work Phone: [facility] 03-28-2024 Seasonal trivalent influenza vaccine, adjuvanted, preservative free Brody Ibrahim DPM Work Phone: [facility] 02-28-2023 influenza virus vacc ine, unspecified formulation Topher STEVENSON [facility] 02-28-2023 Influenza, Seasonal, Quadrivalent, Adjuvanted Brody Ibrahim DPM Work Phone: [facility] 04-16-2022 influenza virus vacc ine, unspecified formulation Topher STEVENSON [facility] 04-16-2022 Influenza, Seasonal, Quadrivalent, Adjuvanted Brody Ibrahim DPM Work Phone: [facility] 03-23-2022 Moderna Bivalent Simmons ster Vaccination Brody Ibrahim DPM Work Phone: [facility] 03-23-2022 Moderna SARS-CoV-2 50mcg/0.5mL Booster Brody Ibrahim DPM Work Phone: [facility] 03-23-[address] 12 Years And Older Brody Ibrahim DPM Work Phone: [facility] 03-23-2022 SARS-CoV-2 (COVID-19 ) [id number] Topher STEVENSON [facility] 06-18-2021 SARS-CoV-2 (COVID-19 ) mRNA BNT-162b2 vax Topher STEVENSON [facility] 05-06-2021 influenza virus vacc ine, unspecified formulation Topher STEVENSON [facility] 05-06-2021 Influenza, Seasonal, Quadrivalent, Adjuvanted Brody Ibrahim DPM Work Phone: [facility] 05-06-2021 SARS-CoV-2 (COVID-19 ) Ad26 vaccine, recombinant Topher STEVENSON [facility] 08-28-2020 SARS-CoV-2 (COVID-19 ) mRNA BNT-162b2 vax Topher STEVENSON [facility] 08-28-2020 SARS-CoV-2, Unspecified Garry garrick Ibrahim DPM Work Phone: [facility] 08-27-2020 Pfizer Purple Cap SARS-CoV-2 Vaccination Brody Ibrahim DPM Work Phone: [facility] 08-08-2020 SARS-CoV-2 (COVID-19 ) mRNA BNT-162f6 vax Topher STEVENSON [facility] Comment on above: Result Comment: 2022: [id number] 08-08-2020 SARS-CoV-2, Unspecified Garry Ibrahim DPM Work Phone: [facility] 08-07-2020 Pfizer Purple Cap SARS-CoV-2 Vaccination Brody Ibrahim DPM Work Phone: [facility] 08-04-2020 SARS-CoV-2 (COVID-19 ) Ad26 vaccine, recombinant Topher STEVENSON [facility] 03-22-2020 influenza virus vacc ine, unspecified formulation Topher STEVENSON [facility] 03-22-2020 Influenza, Seasonal, Quadrivalent, Adjuvanted Brody Rusher DPM Work Phone: [facility] 03-06-2019 pneumococcal conjuga te vaccine, 13 valent Topher STEVENSON [facility] 03-05-2019 influenza virus vacc ine, unspecified formulation Topher STEVENSON [facility] 03-05-2019 influenza, high dose seasonal, preservative-free Brody Rusher DPM Work Phone: [facility] 03-05-2019 pneumococcal polysaccharide vaccine, 23 valent Topher STEVENSON [facility] 03-04-2019 Influenza, High-dose Seasonal, Quadrivalent, Preservative Free Brody Rusher DPM Work Phone: [facility] 03-04-2019 pneumococcal polysaccharide vaccine, 23 valent Brody Rusher DPM Work Phone: [facility] 03-03-2018 influenza virus vacc ine, unspecified formulation Topher STEVENSON [facility] 03-03-2018 influenza, high dose seasonal, preservative-free Brody Rusher DPM Work Phone: [facility] 03-03-2018 pneumococcal conjuga te vaccine, 13 valent Topher STEVENSON [facility] 03-03-2018 pneumococcal polysaccharide vaccine, 23 valent Brody Rusher DPM Work Phone: [facility] 03-02-2018 pneumococcal conjuga te vaccine, 13 valent Brody Rusher DPM Work Phone: [facility] 04-06-2017 influenza virus vacc ine, unspecified formulation Topher STEVENSON [facility] 04-06-2017 influenza, injectabl e, quadrivalent, preservative free Brody Rusher DPM Work Phone: [facility] 12-04-2016 pneumococcal polysaccharide vaccine, 23 valent Topher STEVENSON [facility] 12-04-2016 zoster vaccine, live Topherpeter STEVENSON [facility] 03-06-2016 Influenza Vaccine, unspecified formulation [facility]th[facility] Schedule [facility] 03-06-2016 influenza virus vacc ine, H5N1, A/[place]/ (national stockpile) Brody Ibrahim DPM Work Phone: [facility] 03-06-2016 influenza virus vacc ine, unspecified formulation Brody Ibrahim DPM Work Phone: [facility] 03-06-2016 Influenza, High-dose Seasonal, Quadrivalent, Preservative Free Brody Ibrahim DPM Work Phone: [facility] 03-06-2016 influenza, unspecifi ed formulation Topher STEVENSON [facility] 01-23-2016 influenza virus vacc ine, unspecified formulation Topher STEVENSON [facility] 01-23-2016 influenza, injectabl e, quadrivalent, preservative free Brody Ibrahim DPM Work Phone: [facility] 06-06-2015 pneumococcal polysaccharide vaccine, 23 valent Topher STEVENSON [facility] 03-23-2014 influenza virus vacc ine, unspecified formulation Topher STEVENSON [facility] 03-23-2014 influenza, seasonal, injectable Brdoy Ibrahim DPM Work Phone: [facility] 04-06-2013 influenza virus vacc ine, unspecified formulation Topher STEVENSON [facility] 04-06-2013 influenza, seasonal, injectable Brody Ibrahim DPM Work Phone: [facility] 04-06-2013 zoster vaccine, live Topher STEVENSNO [facility] 04-05-2013 zoster vaccine, live Brody Ibrahim DPM Work Phone: [facility] 04-21-2009 novel influenza-H1N1 -09, preservative-free, injectable Brody Ibrahim DPM Work Phone: [facility] Healthcare Payers Date Payer Category Payer Private Health Insurance [place] [place] [id number] 2022 Unknown 2017 Medicare [id number] 2017 Medicare xxxxxxxxxxx [id number] 1959 Medicare [id number] [id number] .[id number] 1959 Private Health Insurance [id number] 1.2.840.506205.1.13.239.2 .7.3.580383.315 1952 Unknown [id number] 2.16.840.1.745252.3.579.2 .593 1952 Unknown [id number] 2.16.840.1.144593.3.579.2 .593 1952 Unknown [id number] 2.16.840.1.772059.3.579.2 .593 1952 Unknown [id number] 2.16.840.1.308140.3.579.2 .593 1952 Unknown [id number] 2.16.840.1.732422.3.579.2 .593 1952 Unknown [id number] 2.16.840.1.149152.3.579.2 .593 1952 Unknown [id number] 2.16.840.1.836662.3.579.2 .593 1952 Unknown [id number] 2.16.840.1.983728.3.579.2 .593 1952 Unknown [id number] 2.16.840.1.539745.3.579.2 .593 1952 Unknown [id number] 2.16.840.1.204785.3.579.2 .593 1952 Unknown [id number] 2.16.840.1.394513.3.579.2 .593 1952 Unknown [id number] 2.16.840.1.991294.3.579.2 .593 1952 Unknown [id number] 2.16.840.1.947183.3.579.2 .173 1952 Unknown [id number] 2.16.840.1.853368.3.579.2 .173 1952 Unknown [id number] 2.16.840.1.579759.3.579.2 .1259 1952 Unknown [id number] 2.16.840.1.860450.3.579.2 .1259 1952 Unknown [id number] 2.16.840.1.491098.3.579.2 .1259 2 Unknown [id number] 2.16.840.1.380903.3.579.2 .1258 1952 Unknown [id number] 2.16.840.1.135067.3.579.2 .1258 1952 Unknown [id number] 2.16.840.1.569003.3.579.2 .1258 1952 Unknown [id number] 2.16.840.1.773487.3.579.2 .1258 1952 Unknown [id number] 2.16.840.1.334144.3.579.2 .1258 1952 Unknown [id number] 2.16.840.1.454076.3.579.2 .1258 1952 Unknown [id number] 2.840.1.764672.3.579.2 .1258 1952 Unknown [id number] 2.16.840.1.176204.3.579.2 .1258 1952 Unknown [id number] 2.16.840.1.112240.3.579.2 .1952 Unknown [id number] 2.16840.1.396982.3.579.2 .1952 Unknown [id number] 2.16.840.1.631159.3.579.2 .1952 Unknown [id number] 2.16.840.1.375365.3.579.2 .1952 Unknown [id number] 2.16.840.1.845696.3.579.2 .1952 Unknown [id number] 2.16.840.1.097214.3.579.2 .1952 Unknown [id number] 2.16.840.1.552614.3.579.2 1952 Unknown [id number] 2.16.840.1.938452.3.579.2 .727 1952 Unknown [id number] 2.16.840.1.869315.3.579.2 .727 1952 Unknown [id number] 2.16.840.1.698506.3.579.2 .727 1952 Unknown [id number] 2.16.840.1.274939.3.579.2 .727 1952 Unknown [id number] 2.16.840.1.400959.3.579.2 .727 1952 Unknown [id number] 2.16.840.1.033667.3.579.2 .727 1952 Unknown [id number] 2.16.840.1.664483.3.579.2 .727 1952 Unknown [id number] 2.16.840.1.815254.3.579.2 .727 Medicare [id number] Social History Date Type Detail Facility Start: 10-18-2018 End: 12-06-2023 Tobacco smoking status NHIS Former [place] End: 06-06-2012 History of tobacco use Current [place] Start: 10-18-2018 End: 05-17-2023 Cigarettes smoked current (pack per day) - Reported [facility] Start: 10-18-2018 End: 05-17-2023 Alcohol intake No [place] Start: 01-23-2014 Tobacco Comment quit smoking in 1999 [place] Start: 1950 Sex Assigned At Not on file [place] Start: 10-18-2018 End: 10-21-2021 Alcohol intake Current non-drinker of alcohol (finding) [place] Start: 10-22-2020 End: 12-06-2023 Tobacco use and exposure Never used [facility] Start: 01-18-2022 End: 01-28-2022 Exposure to SARS-CoV-2 (event) Not sure [facility] End: 06-06-2012 History of tobacco use Cigarette Smoker [facility]IT[facility] [place] Work Phone: Start: 05-17-2023 End: 05-15-2024 Alcohol intake Current drinker of alcohol (finding) [...] 12-05-2023 Functional Status N/A [facility] 06-20-2023 Functional Status N/A [facility] 11-05-2022 Functional Status N/A [facility] 06-18-2022 Functional Status N/A [facility] 05-17-2022 Functional Status N/A [facility] 02-01-2022 Functional Status N/A [facility] Clinical Notes 10-22-2020 to 05-15-2024 Brody Ibrahim DPM - 05/15/2024 10:15 AM ESTPatient InstructionsStnica Ibrahim DPM - 04/23/2024 11:00 AM ESTPatient InstructionsTelephone Encounter - Chata Polanco - 04/09/2024 3:53 PM EST Note Date & Type Note Facility 05-15-2024 History of Present illness Narrative Images from the original note were not included. Subjective Patient ID: Juan Miguel Jennings is a 74 y.o. male who presents for Diabetic shoe check (Juan Miguel Jennings is a 74 y.o. male who presents diabetic shoe check. PCP: Dr. Dakota YARBROUGH 03/27/24, A1C: 6.4 (10/04), BS: 132 SS: 14.). HPI Three-week initial assessment of recently fitted therapeutic footwear and accommodative orthoses. Patient is well satisfied; offers no specific concerns or complaints. Risk factors: [...] 2010 Geraldo Raza CATARACT EXTRACTION Left 2019 [facility] OTHER SURGICAL HISTORY 03/2017 lesions on bottom of both feet, [facility] OTHER SURGICAL HISTORY 4 stents Geraldo Stafford [...] areas are clean, dry, non-inflamed. 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 The sites are non-inflamed, non-tender, non-fluctuant. Ulceration: No clinical signs of ulceration or open wound. Assessment/Plan There are no diagnoses linked to [...] ADLs and physical activity; reducing risk profile. Modification of accommodative orthoses; further pocketing and offloading the sub 4th metatarsal areas. Diabetic education relative to the high-risk condition. Procedure: This note was created with the assistance of a speech recognition program. While intending to generate a timely document that accurately reflects the content of the visit, no guarantee can be provided that every grammatical or spelling mistake has been or will be identified or corrected. Thank you for your understanding. Brody Ibrahim DPM documented in this encounter [facility] 05-15-2024 Instructions Brody Ibrahim DPM - 05/15/2024 10:15 AM EST As noted documented in this encounter [facility] 05-02-2024 Note Patient here for 1 y [...] All other systems reviewed and are negative. [facility] 04-23-2024 History of Present illness Narrative Images from the original note were not included. Subjective Patient ID: Juan Miguel Jennings is a 74 y.o. 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 male who presents for Foot Callouses. PCP: Dr. Dakota YARBROUGH 03/27/24, A1C: 6.4 (5), BS: 132 SS: 14. ). HPI Presents [...] 2010 BioGeraldo molina CATARACT EXTRACTION Left 2019 [facility] OTHER SURGICAL HISTORY 03/2017 lesions on bottom of both feet, [facility] OTHER SURGICAL HISTORY 4 stents Geraldo Stafford [...] DPM documented in this encounter [facility] 04-23-2024 Instructions Brody Ibrahim DPM - 04/23/2024 11:00 AM EST Instructions as noted documented in this encounter [facility] 04-09-2024 Telephone encounter Note Custom orthotics arrived senthil Gruber [facility] 04-09-2024 Miscellaneous Notes Custom orthotics arrived senthil Gruber documented in this encounter [facility] 03-29-2024 History of Present illness Narrative [...] History: Procedure Laterality Date BACK SURGERY 2010 BioniGeraldo CATARACT EXTRACTION Left 2019 [facility] OTHER SURGICAL HISTORY 03/2017 lesions on bottom of both feet, [facility] OTHER SURGICAL HISTORY 4 stents KaborArnoldPeguero - [...] Measurements obtained in the weight-bearing position utilizing Unsubscribe.comnock device. Foam impressions obtained simulated weight-bearing. Patient [...] DPM documented in this encounter [facility] 03-29-2024 Instructions Brody Ibrahim DPM - 03/29/2024 1:00 PM EDT As noted documented in this encounter [facility] 03-27-2024 History of Present illness Narrative [...] with Hgb A1C. Also this is a htbo-xy-ujdr visit for consideration for diabetic shoes. Patient [...] polyneuropathy, without long-term current use of insulin ([facility]) (Primary) Chronic problem, stable, to goal. Patient has multiple podiatric issues. The forms from Podiatry were reviewed. Patient's feet were examined. I concur with the forms from Podiatry. Diabetic shoes are medically indicated. I certify that I had a mhdo-yw-rftp encounter with this patient at todays office visit. Due to this medical condition the patient requires DME. I certify that based on my findings The DME ordered is medically necessary for this patient. This has been discussed with the patient and/or their construction sales representative and mutually agreed upon. See [...] microalbuminuria, without long-term current use of insulin ([facility]) Chronic problem, stable, to goal. 9. [...] stratification for cardiovascular disease. 10. Essential hypertension ([facility]) In prescribing a renewal to their [...] - Comprehensive metabolic panel 11. Mixed hyperlipidemia ([facility]) - Lipid panel; Future - Lipid panel 12. Adverse reaction to statin medication Diagnosis for exclusion for HEDIS measures for both diabetes with statin and mixed dyslipidemia with statin. 13. Former smoker Continue nonsmoking 14. Morbid obesity ([facility]) Continue lifestyle changes as able documented in this encounter [facility] 03-13-2024 History of Present illness Narrative [...] History: Procedure Laterality Date BACK SURGERY 2010 BioniGeraldo CATARACT EXTRACTION Left 2019 [facility] OTHER SURGICAL [...] DPM documented in this encounter [facility] 03-13-2024 Instructions Brody Ibrahim DPM - 03/13/2024 9:45 AM EDT As noted documented in this encounter [facility] 12-05-2023 Hospital Discharge instructions Patient Education [...] therapy. Follow these instructions at home: Take ukvv-cqk-fzrdnti and prescription medicines only as told by [...] provider. Document Revised: 01/22/2021 Document Reviewed: 01/22/2021 [employer] Patient Education 2022 [employer]. Follow Up Care 12/05/2023 07:35:26 With:KERI NOLASCO, Topher Ordoñez, URL Address: [facility] [address] , [place] [address] [phone] When: Unknown [facility] 12-05-2023 Note Patient Education Urology Hypogonadism, Male [...] Follow these instructions at home: ? Take fnce-qis-mpogdxs and prescription medicines only as told by [...] provider. Document Revised: (more content not included)... [facility] 11-07-2023 Hospital Discharge instructions Follow Up Care 11/07/2023 08:41:09 With:KERI NOLASCO, Topher Ordoñez, URL Address: [facility] [address] , [place] [address] [phone] When: Unknown [facility] 07-19-2023 History of Present illness Narrative Images [...] May 2023; effectively healed following treatment at [facility] wound Center. Currently relates no bleeding [...] feet, [facility] OTHER SURGICAL HISTORY 4 stents RebeccaGeraldo barajas - 1997 OTHER SURGICAL HISTORY rectal [...] right foot; effectively managed at [facility] wound care center. Care plan: [...] DPM documented in this encounter [facility] 07-19-2023 Instructions Brody Ibrahim DPM - 07/19/2023 10:30 AM EST As noted documented in this encounter [facility] 06-20-2023 Hospital Discharge instructions Patient Education [...] therapy. Follow these instructions at home: Take kaad-uji-hidnmsu and prescription medicines only as told by [...] provider. Document Revised: 01/22/2021 Document Reviewed: 01/22/2021 [employer] Patient Education 2022 [employer]. Follow Up Care 02/08/2023 12:23:35 With:KERI NOLASCO, Topher Ordoñez, URL Address: [facility] [address] , [place] [address] [phone] When: Unknown Comments:6 mos w/ PSA and T level (pt to also get PSA now) [facility] [place] 11-05-2022 Hospital Discharge instructions Patient [...] urethra. Follow these instructions at home: Take slww-pui-hvjnrsk and prescription medicines only as told by [...] provider. Document Revised: 12/09/2021 Document Reviewed: 12/09/2021 [employer] Patient Education 2022 [employer]. Follow Up Care 05/17/2022 10:46:35 With:KERI NOLASCO, Topher Ordoñez, URL Address: [facility] [address] [place] [address]- When: Unknown [facility] 11-03-2022 History of Present illness Narrative [...] to drink water Patient waiting to see Dr for visit documented in this encounter KITTY BESOS Work Phone: 09-15-2022 Note EXAM: XR CHEST 2 V HISTORY: Pre-surgery evaluation COMPARISON: None. TECHNIQUE: PA and lateral views of the chest. FINDINGS: The cardiomediastinal silhouette is normal. No focal consolidation is identified. There is no pneumothorax. No pleural effusion is noted. The osseous structures are intact. IMPRESSION: No acute cardiopulmonary process. Electronically authenticated by: DARRIUS BOLTON Date: 2022-09-15 12:26 [facility] 06-18-2022 Hospital Discharge instructions Patient [...] urethra. Follow these instructions at home: Take zroo-kmy-budiwix and prescription medicines only as told by [...] 05/23/2006 Document Revised: 04/17/2019 Document Reviewed: 06/27/2017 [employer] Patient Education 2020 [employer]. Follow Up Care 06/14/2022 09:33:13 With:KERI NOLASCO, Topher Ordoñez, URL Address: [address] [place], [place] [id number]- When: Unknown [facility] [place] 05-17-2022 Hospital Discharge instructions Patient [...] urethra. Follow these instructions at home: Take xrbu-bud-rqqqzlu and prescription medicines only as told by [...] 05/23/2006 Document Revised: 04/17/2019 Document Reviewed: 06/27/2017 [employer] Patient Education 2020 [employer]. Follow Up Care 04/21/2022 09:42:50 With:KERI NOLASCO, Topher Ordoñez, URL Address: [facility] [address] , [place] [address]- When: Unknown [facility] 03-23-2022 Note PROCEDURE: XR FOOT R [...] authenticated by: BRODY PAYAN Date: 2022-03-23 06:26 [facility] 02-01-2022 Hospital Discharge instructions Patient [...] urethra. Follow these instructions at home: Take iahs-jvo-ykrssry and prescription medicines only as told by [...] 05/23/2006 Document Revised: 04/17/2019 Document Reviewed: 06/27/2017 [employer] Patient Education 2020 [employer]. Follow Up Care 08/03/2021 15:20:11 With:KERI NOLASCO, Topher Ordoñez, URL Address: [address] [place] [phone]- When: Unknown [facility] 10-22-2020 History of Present illness Narrative 1225 Patient arrives ambulating from cynthia for phlebotomy. No complaints at this time. [...] ambulating without complaints documented in this encounter [facility] Work Phone: Evaluation + Plan note Future Appointments Appointment Date:09/28/2021 09:00:00 AM Scheduled Provider: Location:[facility] Appointment Type:URO Nurse Visit Appointment Date:02/01/2022 09:45:00 AM Scheduled Provider:Topher STEVENSON MD Location:[facility] Appointment Type:URO Office Visit [facility] Evaluation + Plan note Future Appointments Appointment Date:10/26/2021 09:00:00 AM Scheduled Provider: [facility] Appointment Type:URO Nurse Visit Appointment Date:02/01/2022 09:45:00 AM Scheduled Provider:Topher STEVENSON MD [facility] Appointment Type:URO Office Visit [facility] Evaluation + Plan note Future Appointments Appointment Date:11/23/2021 09:00:00 AM Scheduled Provider: Location:[facility] Appointment Type:URO Nurse Visit Appointment Date:02/01/2022 09:45:00 AM Scheduled Provider:Topher STEVENSON MD [facility] Appointment Type:URO Office Visit [facility] Evaluation + Plan note Future Appointments Appointment Date:12/21/2021 09:00:00 AM Scheduled Provider: Location:[facility] Appointment Type:URO Nurse Visit Appointment Date:02/01/2022 09:45:00 AM Scheduled Provider:Topher STEVENSON MD [facility] Appoint[facility] Type:URO Office Visit [facility] Evaluation + Plan note Future Appointments Appointment Date:02/01/2022 09:45:00 AM Scheduled Provider:Topher STEVENSON MD [facility] Appointment Type:URO Office Visit Diagnostic Tests PendingTestosterone Level Total 12/21/21 [facility] Evaluation + Plan note Future Appointments Appointment Date:03/01/2022 09:30:00 AM Scheduled Provider: Location:[facility] Appointment Type:URO Nurse Visit Diagnostic Tests PendingTestosterone Level Total 04/06/22PSA Total 03/06/22 [facility] Evaluation + Plan note Future Appointments Appointment Date:03/31/2022 08:15:00 AM Scheduled Provider: Location:[facility] Appointment Type:URO Nurse Visit [facility] Evaluation + Plan note Future Appointments Appointment Date:04/21/2022 09:15:00 AM Scheduled Provider: Location:[facility] Appointment Type:URO Nurse Visit [facility] Evaluation + Plan note Future Appointments Appointment Date:05/19/2022 08:00:00 AM Scheduled Provider:Mandy Schaefer MD Location:[facility] Appointment Type:URO Office Visit Diagnostic Tests PendingPSA Total 04/16/22Testosterone Level Total 04/16/22 [facility] Evaluation + Plan note Future Appointments Appointment Date:06/14/2022 09:00:00 AM Scheduled Provider: Location:[facility] Appointment Type:URO Nurse Visit Appointment Date:11/15/2022 08:45:00 AM Scheduled Provider:Topher STEVENSON MD Location:[facility] Appointment Type:URO Office Visit Diagnostic Tests PendingPSA Total 05/17/22Testosterone Level Total 05/17/22 [facility] Evaluation + Plan note Future Appointments Appointment Date:09/06/2022 09:00:00 AM Scheduled Provider: Location:[facility] Appointment Type:URO Nurse Visit Appointment Date:11/15/2022 08:45:00 AM Scheduled Provider:Topher STEVENSON MD Location:[facility] Appointment Type:URO Office Visit [facility] Evaluation + Plan note Future Appointments Appointment Date:10/05/2022 09:00:00 AM Scheduled Provider: Location:[facility] Appointment Type:URO Nurse Visit Appointment Date:10/29/2022 08:45:00 AM Scheduled Provider:Topher STEVENSON MD Location:[facility] Appointment Type:URO Office Visit Appointment Date:11/05/2022 09:45:00 AM Scheduled Provider:Topher STEVENSON MD [facility] Appointment Type:URO Office Visit [facility] Evaluation + Plan note Future Appointments Appointment Date:11/05/2022 09:45:00 AM Scheduled Provider:Topher STEVENSON MD [facility] Appointment Type:URO Office Visit [facility] Evaluation + Plan note Future Appointments Appointment Date:12/03/2022 09:15:00 AM Scheduled Provider: [facility] Appointment Type:URO Nurse Visit Diagnostic Tests PendingTestosterone Level Total 11/05/22PSA Total 11/05/22 [facility] Evaluation + Plan note Future Appointments Appointment Date:01/03/2023 08:15:00 AM Scheduled Provider: Location:[facility] Appointment Type:URO Nurse Visit [facility] Evaluation + Plan note Future Appointments Appointment Date:01/31/2023 08:45:00 AM Scheduled Provider: Location:[facility] Appointment Type:URO Nurse Visit [facility] Evaluation + Plan note Future Appointments Appointment Date:03/07/2023 08:45:00 AM Scheduled Provider: [facility] Appointment Type:URO Nurse Visit Appointment Date:04/04/2023 08:45:00 AM Scheduled Provider: [facility] Appointment Type:URO Nurse Visit Appointment Date:05/02/2023 08:45:00 AM Scheduled Provider: Location:[facility] [place] Appointment Type:URO Nurse Visit Appointment Date:05/27/2023 09:45:00 AM Scheduled Provider:Topher STEVENSON MD [facility] Appointment Type:URO Office Visit [facility] Evaluation + Plan note Future Appointments Appointment Date:05/02/2023 08:45:00 AM Scheduled Provider: Location:[facility] Appointment Type:URO Nurse Visit Appointment Date:06/20/2023 10:30:00 AM Scheduled Provider:Topher STEVENSON MD [facility] Appointment Type:URO Office Visit [facility] Evaluation + Plan note Future Appointments Appointment Date:06/20/2023 10:30:00 AM Scheduled Provider:Topher STEVENSON MD [facility] Appointment Type:URO Office Visit Diagnostic Tests PendingTestosterone Level Total 05/09/23 [facility] Evaluation + Plan note Future Appointments Appointment Date:07/18/2023 09:30:00 AM Scheduled Provider: [facility] Appointment Type:URO Nurse Visit Diagnostic Tests PendingPSA Total 06/20/23Testosterone Level Total 06/20/23 [facility] Evaluation + Plan note Future Appointments Appointment Date:08/15/2023 10:00:00 AM Scheduled Provider: Location:[facility] Appointment Type:URO Nurse Visit [facility] Evaluation + Plan note Future Appointments Appointment Date:09/09/2023 08:30:00 AM Scheduled Provider: Location:[facility] Appointment Type:URO Nurse Visit [facility] Evaluation + Plan note Future Appointments Appointment Date:10/07/2023 08:30:00 AM Scheduled Provider: Location:[facility] Appointment Type:URO Nurse Visit [facility] Evaluation + Plan note Future Appointments Appointment Date:11/07/2023 09:00:00 AM Scheduled Provider: Location:[facility] Appointment Type:URO Nurse Visit [facility] Evaluation + Plan note Future Appointments Appointment Date:12/05/2023 10:45:00 AM Scheduled Provider:Topher STEVENSON MD Location:[facility] Appointment Type:URO Office Visit [facility] Evaluation + Plan note Future Appointments Appointment Date:01/02/2024 09:00:00 AM Scheduled Provider: Location:[facility] Appointment Type:URO Nurse Visit Diagnostic Tests PendingTestosterone Level Total 12/05/23emoglobin 12/05/23 [facility] Evaluation + Plan note Future Appointments Appointment Date:01/02/2024 09:00:00 AM Scheduled Provider: Location:[facility] Appointment Type:URO Nurse Visit [facility] Evaluation + Plan note Future Appointments Appointment Date:02/27/2024 09:00:00 AM Scheduled Provider: Location:[facility] Appointment Type:URO Nurse Visit [facility] [employer] Evaluation + Plan note Future Appointments Appointment Date:03/27/2024 09:00:00 AM Scheduled Provider: Location:[facility] Appointment Type:URO Nurse Visit Appointment Date:04/23/2024 09:30:00 AM Scheduled Provider: Location:[facility] Appointment Type:URO Nurse Visit Appointment Date:05/21/2024 10:45:00 AM Scheduled Provider:Topher STEVENSON MD Location:[facility] Appointment Type:URO Office Visit [facility] [employer] Evaluation + Plan note Future Appointments Appointment Date:04/23/2024 09:30:00 AM Scheduled Provider: Location:[facility] Appointment Type:URO Nurse Visit Appointment Date:05/21/2024 10:45:00 AM Scheduled Provider:Topher STEVENSON MD Location:[facility] Appointment Type:URO Office Visit [facility] [employer] Evaluation + Plan note Future Appointments Appointment Date:05/08/2024 09:00:00 AM Scheduled Provider: Location:[facility] Appointment Type:URO Nurse Visit Appointment Date:05/21/2024 10:45:00 AM Scheduled Provider:Topher STEVENSON MD Location:[facility] Appointment Type:URO Office Visit [facility] Evaluation note Diagnosis Polycythemia- Primary Polycythemia vera documented in this encounter [employer] Phone: [email or web address] note* Diagnosis Polycythemia- Primary Polycythemia vera documented in this encounter KITTY QUIROZ [employer] Phone: evaluation note* Diagnosis Dermatophytosis of nail- Primary Dystrophic nail Other specified disease of nail Diabetic polyneuropathy associated with type 2 diabetes mellitus (CMS/HCC) Nontraumatic amputation of foot, right ([facility]/HCC) Nontraumatic amputation of foot, left (CMS/[facility]) Acquired keratoderma documented in this encounter [facility] HealthcareEvaluation note* Diagnosis Acquired keratoderma- Primary Diabetic polyneuropathy associated with type 2 diabetes mellitus ([facility]) Nontraumatic amputation of foot, left ([facility]) Nontraumatic amputation of foot, right ([facility]) documented in this encounter [facility] HealthcareEvaluation note* Diagnosis Type 2 diabetes mellitus with diabetic polyneuropathy, without long-term current use of insulin ([facility])- Primary Acquired hallux malleus of left foot Acquired hammer toes of both feet Foot callus Corns and callosities Partial nontraumatic amputation of right foot ([facility]) Partial nontraumatic amputation of foot, left ([facility]) Venous stasis dermatitis of both lower extremities Type 2 diabetes mellitus with diabetic microalbuminuria, without long-term current use of insulin ([facility]) Microalbuminuria Proteinuria Essential hypertension ([facility]) Unspecified essential hypertension Mixed hyperlipidemia ([facility]) Mixed hyperlipidemia Adverse reaction to statin medication Former smoker Personal history of tobacco use, presenting hazards to health Morbid obesity ([facility]) Morbid obesity documented in this encounter [facility] HealthcareEvaluation note* Diagnosis Diabetic polyneuropathy associated with type 2 diabetes mellitus ([facility])- Primary Nontraumatic amputation of foot, left ([facility]) Nontraumatic amputation of foot, right ([facility]) documented in this encounter [place] [facility] HealthcareEvaluation note* Diagnosis Diabetic polyneuropathy associated with type 2 diabetes mellitus ([facility])- Primary Nontraumatic amputation of foot, left ([facility]) Nontraumatic amputation of foot, right ([facility]) [facility] N[facility] No data available for this section [facility] Hospital Discharge instructions No data available for this section [facility] progress note No data available for this section [facility] Summary Purpose Family History No Family [...] FoundDocuments on File Type Date Recorded 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 Advance Directives and Livin g Will Advance Directives and Livin g Will 08/31/2013 9:46 AM Power of Inset Cutter Power of Inset Cutter 08/31/2013 9:46 AM Latest Code Status on File Code Status Date Activated Date Inactivated Comments Full Code 08/06/2016 9:06 AM 08/09/2016 5:53 PM Full Code 08/04/2016 9:28 PM 08/06/2016 9:06 AM Full Code 05/15/2015 12:42 PM 05/19/2015 6:52 PM Full Code 05/12/2015 11:22 AM 05/15/2015 12:42 PM Full Code 05/13/2014 2:36 PM 05/13/2014 9:20 PM Documents on File Type Date Recorded 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.] content) DATE CREATED AUTHOR 11/24/2017 [facility] DATE CREATED AUTHOR AUTHOR'S ORGANIZ ATION 03/15/2018 [facility] DATE CREATED AUTHOR AUTHOR'S ORGANIZ ATION 07/01/2021 [facility] DATE CREATED AUTHOR AUTHOR'S ORGANIZ ATION 09/26/2021 [facility] dical Specialist DATE CREATED AUTHOR AUTHOR'S ORGANIZ ATION 11/13/2022 [facility] DATE CREATED AUTHOR AUTHOR'S ORGANIZ ATION 11/10/2023 [facility] DATE CREATED AUTHOR AUTHOR'S ORGANIZ ATION 02/25/2024 [facility] DATE CREATED AUTHOR AUTHOR'S ORGANIZ ATION 05/05/2024 [facility] DATE CREATED AUTHOR AUTHOR'S ORGANIZ ATION 05/18/2024 [facility] dical Specialists EPIC DATE CREATED AUTHOR AUTHOR'S ORGANIZ ATION 05/20/2024 [facility] Care Team (unrecognized sect ion and content) Rag Sorter And Cutter Relationship Specialty Start Date End Date Jordan Duncan MD PCP - General 07/25/19 Rag Sorter And Cutter Relationship Specialty Start Date End Date Jordan Duncan MD [address] [place] [address] PCP - General Family Medicine 10/25/22 Mitch Mello MD [address] [place] [address] Referring Physician Cardiology 05/17/23 Jr. Julio Henson DO [address] [address] Referring Physician Orthopaedic Surgery 05/17/23 Brody Ibrahim DPM [address] [place] [address] Referring Physician Podiatry 05/17/23 Rag Sorter And Cutter Relationship Specialty Start Date End Date Jordan Duncan MD [address] [place] [address] PCP - General Family Medicine 10/25/22 Mitch Mello MD [address] [place] [address] Referring Physician Cardiology 05/17/23 Jr. Julio Henson DO [address] [facility] [address] [place] [address] Referring Physician Orthopaedic Surgery 05/17/23 Brody Ibrahim DPM [address] [place], [place] [phone] Referring Physician Podiatry 05/17/23 Rag Sorter And Cutter Relationship Specialty Start Date End Date Jordan Duncan MD [address] [place] [address] (Fax) PCP - General Family Medicine 10/25/22 Jordan Duncan MD [address] [place] [address] (Fax) PCP - ACO Reach 08/05/23 Mitch Mello MD [address] [place] [address] Referring Physician Cardiology 05/17/23 Jr. Julio Henson DO [address] [place] [address] Referring Physician Orthopaedic Surgery 05/17/23 Brody Ibrahim DPM [address] [facility] [place], [place] [phone] Referring Physician Podiatry 05/17/23 Rag Sorter And Cutter Relationship Specialty Start Date End Date Jordan Duncan MD [address] [place] [address] (Fax) PCP - General Family Medicine 10/25/22 Jordan Duncan MD [address] [place] [address] (Fax) PCP - ACO Reach 08/05/23 Mitch Mello MD [address] [place], [place] [phone] Referring Physician Cardiology 05/17/23 Jr. Julio Henson DO [address] [facility] [address] [place] [address] Referring Physician Orthopaedic Surgery 05/17/23 Brody Ibrahim DPM [address] [place] [address] Referring Physician Podiatry 05/17/23 Rag Sorter And Cutter Relationship Specialty Start Date End Date Jordan Duncan MD [address] [place] [address] (Fax) PCP - General Family Medicine 10/25/22 Jordan Duncan MD [address] [place] [address] (Fax) PCP - ACO Reach 08/05/23 Mitch Mello MD [address] [place] [address] Referring Physician Cardiology 05/17/23 Jr. Julio Henson, [address] [facility] [address] [place] [address] Referring Physician Orthopaedic Surgery 05/17/23 Brody Ibrahim DPM [address] [place] [address] Referring Physician Podiatry 05/17/23 Rag Sorter And Cutter Relationship Specialty Start Date End Date Jordan Duncan MD [address] [place] [address] (Fax) PCP - General Family Medicine 10/25/22 Jordan Duncan MD [address] [place] [address] (Fax) PCP - ACO Reach 08/05/23 Mitch Mello MD [address] [place] [address] Referring Physician Cardiology 05/17/23 Jr. Julio Henson DO [address] [facility] [address] [place] [address] Referring Physician Orthopaedic Surgery 05/17/23 Brody Ibrahim DPM [facility] [place] [address] Referring Physician Podiatry 05/17/23 Rag Sorter And Cutter Relationship Specialty Start Date End Date Jordan Duncan MD [address] [phone] (Fax) PCP - General Family Medicine 10/25/22 Jordan Duncan MD [address] [place] [address] (Fax) PCP - ACO Reach 08/05/23 Mitch Mello MD [address] [place] [address] Referring Physician Cardiology 05/17/23 Jr. Julio Henson DO [address] [facility] [address] [place] [address] Referring Physician Orthopaedic Surgery 05/17/23 Brody Ibrahim DPM [address] [place] [address] Referring Physician Podiatry 05/17/23 Rag Sorter And Cutter Relationship Specialty Start Date End Date Jordan Duncan MD [address] [place] [address] (Fax) PCP - General Family Medicine 10/25/22 Jordan Duncan MD [address] [place] [address] (Fax) PCP - ACO Reach 08/05/23 Mitch Mello MD [address] [place] [address] Referring Physician Cardiology 05/17/23 Jr. Julio Henson DO [address] [facility] [address] [place] [address] Referring Physician Orthopaedic Surgery 05/17/23 Brody Ibrahim DPM [address] [place] [address] Referring Physician Podiatry 05/17/23 Rag Sorter And Cutter Relationship Specialty Start Date End Date Jordan Duncan MD [address] [place] [address] (Fax) PCP - General Family Medicine 10/25/22 Jordan Duncan MD [address] [place] [address] (Fax) PCP - ACO Reach 08/05/23 Mitch Mello MD [address] [place] [address] Referring Physician Cardiology 05/17/23 Jr. Julio Henson DO [address] [facility] [address] [place] [address] Referring Physician Orthopaedic Surgery 05/17/23 Brody Ibrahim DPM [address] [place], [place] [phone] Referring Physician Podiatry 05/17/23 Rag Sorter And Cutter Relationship Specialty Start Date End Date Jordan Duncan MD [address] [place] [address] (Fax) PCP - General Family Medicine 10/25/22 Jordan Duncan MD [address] [place] [address] PCP - ACO Reach 08/05/23 Mitch Mello MD [address] [place] [address] Referring Physician Cardiology 05/17/23 Jr. Julio Henson, [address] [facility] [address] [place] [address] Referring Physician Orthopaedic Surgery 05/17/23 Brody Ibrahim DPM [address] [place] [address] Referring Physician Podiatry 05/17/23 Rag Sorter And Cutter Relationship Specialty Start Date End Date Jordan Duncan MD 112 [facility] [address] [place] [address] PCP - General Family Medicine 10/25/22 Jordan Duncan MD 112 [facility] [address] [place] [address] PCP - ACO Reach 08/05/23 Mitch Mello MD [address] [phone] Referring Physician Cardiology 05/17/23 Jr. Julio Henson DO [address] [address] Referring Physician Orthopaedic Surgery 05/17/23 Brody Ibrahim DPM [address] [place] [address] Referring Physician Podiatry 05/17/23 Reason for Visit [...] for Foot Callouses. PCP: Dr. 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 male who presents for Foot Callouses. PCP: Dr. Duncan 03/27/24, A1C: 6.4 (5/), BS: 132 SS: 14. Reason Comments Diabetic shoe check Juan Miguel Jennings is a 74 y.o. male who presents diabetic shoe check. PCP: Dr. Duncan 03/27/24, A1C: 6.4 (5/), BS: 132 SS: 14. FOR RECORDS PERTAINING [...] BE BASED ON THE PRIMARY CLINICAL RECORDS. [facility] [employer] provides no warranty or guarantee of the accuracy or completeness of information in this document.
--- NOTE | 2024-05-22 08:50 | CA_ITS ---
Patient Name: NIMCO LARA MR#: [id number] : 1950 Exam Date: 05/22/2024 Ordering Doctor: PAUL WEN CNP ECHOCARDIOGRAM REPORT PROCEDURE: CA ECHO DOPPLER COMPLETE INDICATIONS: Coronary artery disease COMPARISON: None. DESCRIPTION: COMPLETE ECHOCARDIOGRAM Real-time transthoracic echocardiography with 2D, M-mode, spectral and color flow Doppler performed. QUALITY: Technical quality was good. LEFT VENTRICLE: Normal chamber size. Moderate concentric left ventricular hypertrophy. LV EF: Global left ventricular systolic function is normal; visually estimated ejection fraction is 55 to 60%. Abnormal septal motion may be related to underlying bundle branch block. DIASTOLIC: Normal diastolic function. ATRIAL SEPTUM: Inadequately seen LEFT ATRIUM: Normal chamber size. RIGHT ATRIUM: Normal chamber size. RIGHT VENTRICLE: Normal chamber size. Normal right ventricular systolic function. TRICUSPID VALVE: Normal mobility and thickness. No stenosis with trivial regurgitation. No evidence of pulmonary hypertension. RVSP 29mmHg MITRAL VALVE: Normal mobility and thickness. No evidence of mitral valve stenosis. Mild mitral annular calcification. Trivial mitral regurgitation. AORTIC VALVE: Normal trileaflet appearance. No visible sclerosis. Normal leaflet mobility. No evidence of aortic valve stenosis. No aortic regurgitation. AORTIC ROOT: Normal diameter and appearance. PULMONIC VALVE: Normal thickness and mobility. No stenosis. Trivial regurgitation. PERICARDIUM: Anterior free space; trivial effusion versus fat pad IVC: Collapses with inspirations. Normal size. CONCLUSION: 1. Global left ventricular systolic function is normal; visually estimated ejection fraction is 55 to 60% 2. Normal right ventricular size and systolic function 3. Moderate left ventricular hypertrophy 4. Normal diastolic function 5. The left atrium is normal in size 6. No significant valvular abnormalities 7. Anterior free space; trivial effusion versus fat pad Adult Echocardiography Procedure Report Left Ventricle LVEDD (3.7 - 5.6 cm): 4.50 cm LVESD (2.2 - 4.0 cm): 3.00 cm LVIVS thickness (0.6 - 1.2 cm): 1.23 cm LVPW thickness (0.5 - 1.0 cm): 1.34 cm e': 0.08 m/s E - e': 10.58 LVOT Max Gradient: 3.04 mm[Hg] LVOT Area (cm2): 0.87 m/s Peak Velocity (LVOT): 0.87 m/s Mean Velocity (LVOT): 0.57 m/s LVOT Diameter 2.21 cm Left Ventricular Ejection Fraction: 53.89 % Left Atrium LA Volume Index (2D A2C): 31.42 ml/m2 Left Atrium Systolic Dimension: 4.04 cm Mitral Valve MV E to A Ratio: 0.86 Mitral Valve A-Wave Peak Velocity: 0.92 m/s Mitral Valve E-Wave Peak Velocity: 0.80 m/s Right Ventricle RV Internal Diastolic Dimension: 3.80 cm Aorta AO Root Diam: 3.53 cm Ascending Ao Diam: 3.47 cm Aortic Valve AoV Area (Peak Bradford): 3.31 cm2, 3.31 cm2 AoV Area (VTI): 2.84 cm2, 2.84 cm2 Peak Velocity(Antegrade Flow): 1.01 m/s Peak Gradient(Antegrade Flow): 4.12 mm[Hg] Mean Velocity(Antegrade Flow): 0.73 m/s Mean Gradient(Antegrade Flow): 2.45 mm[Hg] Velocity Time Integral: 25.68 cm Tricuspid Valve Peak Velocity (Regurgitant Flow): 2.36 m/s, 2.53 m/s, 2.13 m/s Pulmonic Valve Peak Velocity: 0.87 m/s Peak Gradient: 3.16 mm[Hg], 2.91 mm[Hg] Right Atrium Right Atrium Systolic Pressure: 92.86 ml, 92.86 ml Dictated by: Nicola Diego M.D. on 05/22/2024 at 17:02 Approved by: Nicola Diego M.D. on 05/22/2024 at 17:06
== END 2024-05-22 08:12 | disposition home or self-care (01) ==
PROVIDERS: PCP Family Medicine; Visit Provider Nurse Practitioner Family
DX: I25.10 Atherosclerotic heart disease of native coronary artery without angina pectoris (principal); R53.83 Other fatigue
CPT/HCPCS: 93306

== ENCOUNTER 2024-05-22 08:14 | Outpatient (OUT) | payer MEDICARE, SELFPAY ==
[2024-05-22 08:48] LABS: Basophils Percent Auto 0.4 % (0.2-2.0); Eosinophils Absolute Auto 0.3 10^3/uL (0.0-0.7); Eosinophils Percent Auto 4.2 % (0.9-7.0); Hemoglobin 17.9 g/dL (14.0-18.0); Immature Granulocytes Abs Auto 0.01 10^3/uL (0.00-0.03); Immature Granulocytes Pct Auto 0.1 % (0.0-0.5); Lymphocytes Absolute Auto 1.1 10^3/uL (1.2-3.8); Mean Corpuscular HGB Conc 33.8 g/dL (29.9-35.2); Mean Corpuscular Hemoglobin 32.9 pg (25.9-34.0); Mean Corpuscular Volume 97.4 fL (80.0-94.0); Mean Platelet Volume 12.5 fL (9.5-13.5); Monocytes Absolute Auto 0.9 10^3/uL (0.3-0.8); Monocytes Percent Auto 12.2 % (1.7-12.0); Neutrophils Absolute Auto 4.8 10^3/uL (1.4-6.5); Neutrophils Percent Auto 68.1 % (43.0-75.0); Platelet Count 144 10^3/uL (150-450); Red Blood Count 5.44 10^6/uL (4.70-6.10); Red Cell Distribution Width 13.8 % (11.0-15.0); White Blood Count 7.1 10^3/uL (4.0-11.0)
[2024-05-23 11:08] LABS: Testosterone 91 ng/dL (264-916)
== END 2024-05-22 08:15 | disposition home or self-care (01) ==
LOC: LAB 08:16
PROVIDERS: PCP Family Medicine; Visit Provider Urology
DX: E23.7 Disorder of pituitary gland, unspecified (principal)
CPT/HCPCS: 36415; 84403; 85025

== ENCOUNTER 2024-05-28 09:51 | Outpatient (OUT) | payer MEDICARE, SELFPAY | END 2024-05-28 09:52 | disposition home or self-care (01) | LOC: WC 09:51 | PROVIDERS: PCP Family Medicine; Visit Provider Physician Assistant | DX: L84 Corns and callosities (principal); E11.40 Type 2 diabetes mellitus with diabetic neuropathy, unspecified | CPT/HCPCS: 11056 ==

== ENCOUNTER 2024-07-10 14:33 | Outpatient (OUT) | payer MEDICARE, SELFPAY ==
--- OUTSIDE RECORDS SUMMARY | 2024-07-10 14:40 | XMS_ITS | CCD ---
Author Organization [facility] Care Team Providers Care Quality Control Chemist Name Role Phone PHYSICIAN, DEFAULT Unavailable Unavailable PHYSICIAN, DEFAULT Unavailable Unavailable Diego Bartlett Primary Care Provider Jordan Duncan Primary Care Provider [phone] Jordan Duncan MD Primary Care Provider JORDAN DUNCAN Primary Care Physician [phone] Jordan Duncan MD Primary Care Provider JORDAN DUNCAN Primary Care Physician Unavail able Jordan Duncan MD Primary Care Provider ENEDINA HARGROVE Attending Unavailable HEMEYER ., DR [...] Unavailable KERI ., DR OBANDO Consulting Unavailable SAAVEDRA ., DR OBANDO Attending Unavailable SAAVEDRA ., DR OBANDO Admitting Unavailable HEMEYER ., DR ALATORRE Primary Care Unavailable LINNEACHANI Stewart II Consulting Unavailable MATEO VILLALOBOS Consulting Unavailable HEMEYER ., DR ALATORRE Primary Care Unavailable HEMEYER ., DR ALATORRE Consulting Unavailable HEMEYER ., DR ALATORRE Attending Unavailable HEMEYER ., DR ALATORRE Admitting Unavailable SAAVEDRA ., DR OBANDO Consulting Unavailable SAAVEDRA ., DR OBANDO Attending Unavailable HEMEYER ., DR ALATORRE Primary Care Unavailable SAAVEDRA ., DR OBANDO Admitting Unavailable DARRIUS BOLTON Consulting Unavailable ENEDINA HARGROVE Attending Unavailable HIGHLENEDINA HILARIO Admitting Unavailable HEMEYER ., DR ALATORRE Primary Care Unavailable ENEDINA HARGROVE Attending Unavailable BEENA PETER Marion Admitting Unavailable HEMEYER ., DR ALATORRE Primary Care Unavailable Jordan Duncan MD Primary Care Provider Funmilayo NOLASCO, Mitch Armendariz Unavailable Jr. Julio Henson DO Unavailable Alexandria DALAL, Brody Xiao Unavailable Jordan Duncan MD Unavailable Jordan Duncan MD Primary Care Provider Jordan Duncan MD Unavailable Jordan Duncan MD Primary Care Provider Jordan Duncan MD Unavailable ALEXANDRIA, BRODY Xiao Attending Unavailable RUSHER, BRODY A Attending Unavailable HEMEYER, JORDAN Brown Attending Unavailable HEMEYER, JORDAN Brown Attending Unavailable RUSHER, BRODY Xiao Attending Unavailable RUSHER, BRODY A Attending Unavailable RUSHER, BRODY A Attending Unavailable HEMEYER, JORDAN Brown Attending Unavailable RUSHER, BRODY A Attending Unavailable RUSHER, BRODY A Attending Unavailable RUSHER, BRODY A Attending Unavailable Orzech, Fernanda X Attending Unavailable SAAVEDRA, Topher R Attending Unavailable SAAVEDRA, Topher R Attending Unavailable SAAVEDRA, Topher R Attending Unavailable SAAVEDRA, Topher R Attending Unavailable SAAVEDRA, Topher R Attending Unavailable SAAVEDRA, Topher R Attending Unavailable SAAVEDRA, Topher R Attending Unavailable SAAVEDRA, Topher R Attending Unavailable SAAVEDRA, Topher R Attending Unavailable SAAVEDRA, Topher R Attending Unavailable SAAVEDRA, Topher R Attending Unavailable SAAVEDRA, Topher R Attending Unavailable SAAVEDRA, Topher R Attending Unavailable SAAVEDRA, Topher R Attending Unavailable PAUL WEN Attending Unavailable Hemeyer MD, Edward J Primary Care Provider WILLI SANCHEZ Referring Unavailable JORDAN DUNCAN Primary Care Unavailable JORDAN DUNCAN Primary Care Unavailable WILLI SANCHEZ Referring Unavailable JORDAN DUNCAN Primary Care Unavailable WILLI SANCHEZ Referring Unavailable Allergies Allergy Classification Reported Allergen(s) Allergy Type Date of Onset Reaction(s) Facility (4 sources) Clindamycin/Linc omycin Propensity to adverse reactions to drug 8 Diarrhea [place] ([place] sources) Clindamycin Drug Allergy 2 [employer] (4 sources) glipiZIDE; Translations: [GLIPIZIDE] Drug Allergy 2 Diarrhea [employer] Work Phone: (20 sources) metFORMIN; Translations: [METFORMIN] Drug Allergy 2 Diarrhea, Unknown [employer] Work Phone: (20 sources) Pravastatin; Translations: [PRAVASTATIN] Drug Allergy 2 Unknown [employer] Work Phone: (4 sources) rosuvastatin; Translations: [ROSUVASTATIN] Drug Allergy 2 [employer] Phone: (2 sources) Clindamycin; Translations: [CLINDAMYCIN] Drug Allergy 7 [facility] (1 source) glipiZIDE Drug Allergy 7 [facility] (1 source) metFORMIN Drug Allergy 7 [facility] (20 sources) Clindamycin Drug Allergy 2 Diarrhea [facility] (20 sources) ezetimibe; Translations: [EZETIMIBE] Drug Allergy 2 Unknown [facility] (20 sources) glipiZIDE Drug Allergy 2 Diarrhea, Unknown [facility] (20 sources) Rosuvastatin calcium Allergy to substance 1 [...] SUSP Apply to eye 3 times daily Active Simbrinza 1-0.2 % suspension every 8 (eight) hours. Active cholecalciferol 0.05 mg oral tablet (20 sources) Vitamin D Cholecalciferol (VITAMIN D3) 50 MCG (2000 UT) TABS Take by mouth daily Active cholecalciferol (Vitamin D-3) 50 MCG (2000 UT) tablet Take by mouth. Active Cholecalciferol (VITAMIN D3) 3000 UNITS TABS Take by mouth daily 0 Active Cholecalciferol (VITAMIN D3) 3000 UNITS TABS Take by mouth. 0 Active cyclobenzaprine hydrochloride 10 mg oral tablet (20 sources) Muscle Relaxant Start: 04-19-2023 cyclobenzaprine (FLEXERIL) 10 MG tablet Take 1 tablet by mouth 06/20/2023 Active diclofenac sodium 75 mg delayed release oral tablet (16 sources) Nonsteroidal Anti-inflammatory Drug Start: 05-17-2023 End: 08-15-2023 diclofenac (VOLTAREN) 75 MG EC tablet Refills(s) 0 06/20/2023 Active empagliflozin 25 mg oral tablet (20 sources) Sodium-Glucose Cotransporter 2 Inhibitor Start: 08-17-2018 take 1 mg by mouth once daily in the morning Jardiance 25 mg oral tablet mg tab(s), Oral, qAM, Refills(s) 0 Start Date: 01/01/19 Status: Ordered famotidine 20 mg oral tablet (20 sources) Histamine-2 Receptor Antagonist Start: 12-13-2023 End: 09-16-2024 take 1 tablet by mouth in the morning famotidine (Pepcid) 20 MG tablet Indications: Dyspepsia Take 1 tablet (20 mg) by mouth in the morning and 1 tablet (20 mg) before bedtime. 180 tablet 06/18/2024 09/16/2024 Active glipiZIDE 10 mg oral tablet (20 [...] DAILY IN THE EVENING 2 07/27/2018 Active Start: 07-27-2018 take 1 drop(s) into the eye(s) at bedtime latanoprost (Xalatan) 0.005 % ophthalmic solution INSTILL 1 DROP INTO BOTH EYES AT BEDTIME Ophthalmic for 90 Days 07/27/2018 Active latanoprost Opth 0.005% [facility] (3 sources) Start: 02-25-2020 latanoprost Op th 0.005% [facility] Refill(s) 0 Start Date: 02/25/20 Status: Ordered losartan potassium 50 mg oral tablet (20 sources) Angiotensin 2 Receptor Justice Start: 09-29-2021 End: 09-23-2024 take 1 tablet by mouth once daily losartan (Cozaar) 50 MG tablet Indications: Essential hypertension (CMS/HCC) Take 1 tablet (50 mg) by mouth Daily 90 tablet 1 03/27/2024 09/23/2024 Active Start: 02-25-2020 losartan 100 m g Tab Refills(s) 0 Start Date: 02/25/20 Status: Ordered take 2 tablets by [facility] once daily losartan (COZAAR) 25 MG tablet [...] MG 24 hr tablet Indications: Atherosclerosis of [place] coronary artery of [place] heart without angina pectoris (CMS/HCC) Take 1.5 tablets (150 mg) by mouth in the morning. Do not crush or chew.. 135 tablet 1 04/20/2023 10/17/2023 Active take 1 tablet by [facility] once daily metoprolol succinate (TOPROL XL) 50 MG extended release tablet Take 1 tablet by mouth nightly 100mg in the am, 50mg in the pm Active take 2 tablets by [facility] twice daily in the evening metoprolol (TOPROL-XL) 25 MG XL tablet Take 2 tablets by mouth 2 times daily 100mg in the am, 50mg in the pm 0 Active Multiple Vitamin (MULTIVITAM IN ADULT PO) (2 sources) Multiple Vitamin (MULTIVITAMIN ADULT PO) Take by mouth Active Multiple Vitamin (MULTIVITAMIN ADULT PO) Take by mouth 0 Active Multiple Vitamin (multivitamin) capsule (20 sources) take 1 capsule by mouth in the morning Multiple Vitamin (multivitamin) capsule Take 1 capsule by mouth in the morning. Active take 1 capsule by mouth in the m orning Multiple Vitamin (multivitamin) capsule Take 1 capsule by mouth in the morning. 0 Active netarsudil 0.2 mg/ml ophthalmic solution (11 sources) Rho Kinase Inhibitor Start: 07-21-2021 End: 03-27-2024 take 1 drop(s) into the eye(s) once daily RHOPRESSA 0.02 % SOLN PLACE 1 DROP INTO LEFT EYE EVERYDAY 07/21/2021 Active niacin 500 mg oral tablet (15 sources) Nicotinic Acid Start: 04-19-2023 End: 04-18-2024 take 2 tablets by mouth in the evening niacin 500 MG tablet Indications: Mixed hyperlipidemia (CMS/HCC) Take 2 tablets (1,000 mg) by mouth in the evening. 180 tablet 04/19/2023 04/18/2024 Active take 1 tablet by mouth once jovana y niacin 500 MG tablet Take 1 tablet by mouth daily Active take 1 tablet by mouth twice pablo ly niacin 500 MG tablet Take 500 mg by mouth 2 times daily 0 Active 24 hr oxybutynin chloride 5 mg extended release oral tablet (20 sources) Cholinergic Muscarinic Antagonist Start: 09-08-2017 take 1 tablet by mouth once daily oxybutynin (DITROPAN-XL) 5 MG extended release tablet Take 1 tablet by mouth daily 6 09/08/2017 Active pioglitazone 30 mg oral tablet [...] Refills(s) 0 Start Date: 02/25/20 Status: Ordered pravastatin sodium 40 mg oral tablet (20 sources) HMG-CoA Reductase Inhibitor Start: 02-25-2020 pravastatin 40 mg Ta b Refills(s) 0 Start Date: 02/25/20 Status: Ordered take 2 tablets by mouth once pablo ly pravastatin (PRAVACHOL) 20 MG tablet Take 40 mg by mouth daily. 0 Active sucralfate 1000 mg oral tablet (14 sources) Aluminum Complex Start: 12-05-2023 sucralfate 1 g Tab Refills(s) 0 Start Date: 12/05/23 Status: Ordered Start: 10-12-2023 End: 07-05-2024 sucralfate (Carafate) 1 g ta blet Indications: [...] BID, # 180 cap(s), Refills(s) 3, Pharmacy: [facility]/pharmacy #[id number], 198, cm, 12/05/23 10:49:00 EDT, Height/Length Dosing, 150.3, kg, 12/05/23 10:49:00 EDT, Weight Dosing Start Date: 01/11/24 Status: Ordered Start: 06-18-2022 take 1 capsule by [facility] once daily tamsulosin 0.4 mg Cap 0.4 mg = 1 cap(s), Oral, Daily, # 90 cap(s), Refills(s) 3, Pharmacy: [facility]/pharmacy #[id number], 198, cm, 11/05/22 10:14:00 EDT, Height/Length Dosing, 150, kg, 11/05/22 10:14:00 EDT, Weight Dosing Start Date: 05/26/23 Status: Ordered take 1 capsule by [facility] every twenty-four hours in the morning tamsulosin [...] q4wk, # 10 mL, Refills(s) 1, Pharmacy: [facility]/pharmacy #[id number], 198, cm, 12/05/23 10:49:00 EDT, Height/Length Dosing, 150.3, kg, 12/05/23 10:49:00 EDT, Weight Dosing Start Date: 03/27/24 Status: Ordered Start: 01-03-2024 testosterone c ypionate 200 mg/mL IM Richelle 400 mg, IntraMuscular, q4wk, # 10 mL, Refills(s) 1, Pharmacy: [facility]/pharmacy #[id number], 198, cm, 12/05/23 10:49:00 EDT, Height/Length Dosing, 150.3, kg, 12/05/23 10:49:00 EDT, Weight Dosing Start Date: 01/03/24 Status: Ordered Start: 06-20-2023 testosterone c ypionate 200 mg/mL IM Richelle 450 mg, IntraMuscular, q4wk, # 10 mL, Refills(s) 1, Pharmacy: [facility]/pharmacy #[id number], 198, cm, 06/20/23 11:05:00 EST, Height/Length Dosing, 149, kg, 06/20/23 11:05:00 EST, Weight Dosing Start Date: 06/20/23 Status: Ordered Start: 05-09-2023 testosterone c ypionate 200 mg/mL IM Richelle 400 mg, IntraMuscular, q4wk, # 10 mL, Refills(s) 1, Pharmacy: [facility]/pharmacy #[id number], 198, cm, 11/05/22 10:14:00 EDT, Height/Length Dosing, 150, kg, 11/05/22 10:14:00 EDT, Weight Dosing Start Date: 05/09/23 Status: Ordered Start: 02-08-2023 testosterone c ypionate 200 mg/mL IM Richelle 400 mg, IntraMuscular, q4wk, # 10 mL, Refills(s) 2, Pharmacy: [facility]/pharmacy #[id number], 198, cm, 11/05/22 10:14:00 EDT, Height/Length Dosing, 150, kg, 11/05/22 10:14:00 EDT, Weight Dosing Start Date: 02/08/23 Status: Ordered Start: 08-27-2022 testosterone c ypionate 200 mg/mL IM Richelle 400 mg, IntraMuscular, q4wk, # 10 mL, Refills(s) 2, Pharmacy: [facility]/pharmacy #[id number], 198, cm, 06/18/22 9:10:00 EST, Height/Length Dosing, 164, kg, 06/18/22 9:10:00 EST, Weight Dosing Start Date: 08/27/22 Status: Ordered testosterone cypionate 200 mg/mL intramuscular solution (17 sources) Start: 02-01-2022 testosterone c ypionate 200 mg/mL intramuscular solution 400 mg = 2 mL, IntraMuscular, q4wk, 400mg once a month, # 10 mL, Refills(s) 3, Pharmacy: [facility]/pharmacy #[id number], 198, cm, 02/01/22 9:53:00 EDT, Height/Length Dosing, 166, kg, 02/01/22 9:53:00 EDT, Weight Dosing Start Date: 02/01/22 Status: Ordered Start: 11-23-2021 testosterone c ypionate 200 mg/mL intramuscular solution 350 mg, IntraMuscular, q4wk, # 10 mL, Refills(s) 1, Pharmacy: [facility]/pharmacy #[id number], 198, cm, 08/03/21 14:37:00 EST, Height/Length Dosing, 166, kg, 08/03/21 14:37:00 EST, Weight Dosing Start Date: 11/23/21 Status: Ordered Start: 08-03-2021 testosterone c ypionate 200 mg/mL intramuscular solution 350 mg, IntraMuscular, q4wk, # 10 mL, Refills(s) 1, Pharmacy: [facility]/pharmacy #[id number], 198, cm, 08/03/21 14:37:00 EST, [...] Classification Problem Date Documented Da te Episodic/Chronic Abdominal pain (1 source) Indigestion; Translations: [Epigastric pain] 06-18-2024 Episodic Acquired foot deformities (20 sources) Hallux rigidus, right foot; Translations: [Acquired hallux malleus] Onset: 05-03-2022 Resolved: 03-28-2024 01-11-2023 Chronic Acquired foot deformities (3 sources) Other hammer toe(s) (acquired), left foot; Translations: [Acquired hallux malleus of left great toe] Onset: 05-03-2022 03-28-2024 Chronic Acute myocardial infarction (20 sources) Myocardial infarction 02-19-2019 Chronic Cancer of rectum and anus (7 sources) Malignant tumor of anus; Translations: [Malignant neoplasm of anus, unspecified] Onset: 03-15-2012 08-04-2016 Chronic Chronic kidney disease (20 sources) Chronic kidney disease stage 2; Translations: [Chronic kidney disease, stage 2 (mild)] Onset: 11-15-2019 Resolved: 10-14-2023 01-11-2023 Chronic Coronary atherosclerosis and other heart disease (20 sources) Coronary arteriosclerosis; Translations: [Atherosclerotic heart disease of [place] coronary artery without angina pectoris] Onset: 04-08-2017 [...] osteomyelitis, right ankle and foot] Onset: 08-05-2016 Resolved: 01-13-2023 08-05-2016 Chronic Malaise and fatigue (2 sources) Other [...] 01-13-2023 01-11-2023 Chronic 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 (1 source) care home (current) use of anticoagulants; Translations: [LONGTERM CURRNT USE ANTICOAGULANTS] Onset: 10-12-2022 Episodic 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 (1 source) 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; Translations: [BOOMBOAT OPERATOR CURRENT USE OF ASPIRIN] Onset: 10-12-2022 Episodic 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 (1 source) care home (current) use of oral hypoglycemic drugs; Translations: [LONGTERM USE ORAL HYPOGLYCEMIC DX] Onset: 10-12-2022 Episodic 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 (1 source) 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; Translations: [OTH BOOMBOAT OPERATOR CURRENT DRUG THERAPY] Onset: 09-20-2022 Episodic Other circulatory disease (1 source) Other specified peripheral vascular diseases; Translations: [OTH SPEC PERIPHERAL VASC DISEASES] Onset: 05-03-2022 Chronic Other connective tissue disease (1 source) Presence of artificial knee joint, bilateral; Translations: [PRESENCE ARTIFICIAL KNEE JNT BILAT] Onset: 10-12-2022 Chronic Other connective tissue disease (20 sources) Artificial knee joint present; Translations: [Presence of artificial knee joint, bilateral] Onset: 05-25-2021 05-17-2023 Chronic Other diseases of bladder and urethra (1 source) Detrusor overactivity; Translations: [Overactive bladder] Onset: 05-21-2024 Chronic Other diseases of bladder and urethra (1 source) Overactive bladder 05-21-2024 Chronic Other diseases of veins and lymphatics (2 sources) Disorder of vein of lower extremity; Translations: [Venous insufficiency (chronic) (peripheral)] 03-28-2024 Episodic Other endocrine disorders (20 sources) Disorder of pituitary gland; Translations: [Disorder [...] liver disease 11-05-2019 Episodic Other hematologic conditions (20 sources) Erythrocytosis; 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] Onset: 04-05-2014 04-05-2014 Episodic Other liver diseases (20 sources) Steatosis of liver; Translations: [Fatty (change [...] UNSPECIFIED] Onset: 10-12-2022 Chronic Residual codes; unclassified (20 sources) Dependence on enabling machine or device; [...] other malignant neoplasm of large intestine] Onset: 10-13-19 23 02-19-2019 Episodic Chronic ulcer of skin (20 sources) [...] 11-15-19 Resolved : 10-10-19 24 01-01-2019 Episodic Joint disorders and dislocations; trauma-related (20 sources) Derangement of left knee; Translations: [Unspecified internal derangement of left knee] Onset: 01-24-20 Resolved : 01-14-20 23 01-13-2023 Chronic Mood disorders (20 sources) Mood disorders Onset: 05-17-2005-17-2023 Other connective tissue disease (20 sources) History of total knee arthroplasty; Translations: [...] FOOT] Onset: 03-22-20 Episodic Other endocrine disorders (20 sources) Hypotestosteronism; Translations: [Endocrine disorder, unspecified] Onset: 04-08-20 17 01-11-2023 Episodic Other gastrointestinal disorders (20 sources) Chronic constipation; Translations: [Other constipation] Onset: 01-12-20 23 01-11-2023 Episodic Other hematologic conditions (1 source) Secondary polycythemia; 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] Onset: 04-05-20 Episodic Other lower respiratory disease (1 source) Other specified respiratory disorders; Translations: [OTHER SPEC RESPIRATORY DISORDERS] Onset: 01-20-20 Episodic Other male genital disorders (20 sources) Phimosis; Translations: [Phimosis] Onset: 05-17-20 Resolved : 01-14-20 Episodic Other nervous system disorders (20 sources) Difficulty walking; Translations: [Difficulty in walking, not elsewhere classified] Onset: 05-26-20 Resolved : 10-10-1901-11-2023 Chronic Other nervous system disorders (20 sources) Drug-induced myopathy; Translations: [Drug-induced myopathy] Onset: [...] [CONTACT W/AND (SUSP) EXPOS COVID-19] Onset: 01-19-20 22 Results Test Name Value Interpretation Reference Range Facility CBC W/AUTO DIFFon 06-21-2024 ABS IMMATURE GRAN 0.04 K/uL Normal 0.00-0.06 [facility] Comment on above: Result Comment: UNLE SS OTHERWISE INDICATED, ALL TESTING PERFORMED AT: [employer] [facility] [employer] [address] [place] [id number] PORTAL ARCHITECT: JONI NI M.D. CLIA NUMBER [id number] CAP ACCREDITATION AUID [id number] ABS NEUTROPHILS 5.59 K/uL Normal 1.9-8.0 [facility] Basophils (Bld) [#/Vol] 0.05 10*3/uL Normal 0.0-0.2 [facility] Basophils/100 WBC (Bld) 0.6 % Normal 0-2 [facility] Eosinophils (Bld) [#/Vol] 0.37 10*3/uL Normal 0.0-0.80 [facility] Eosinophils/100 WBC (Bld) 4.3 % Normal 0-5 [facility] Erythrocyte distribution width (RBC) [Ratio] 13.0 % Normal 11.2-14.8 [facility] Hematocrit (Bld) [Volume fraction] 49.9 % Normal 39-52 [facility] Hemoglobin (Bld) [Mass/Vol] 17.1 g/dL Normal 13.0-18.0 [facility] IMMATURE GRAN 0.5 % Normal 0-2 [facility] Lymphocytes (Bld) [#/Vol] 1.72 10*3/uL Normal 0.9-5.2 [facility] Lymphocytes/100 WBC (Bld) 20.0 % Normal 20-45 [facility] MCH (RBC) [Entitic mass] 32.4 pg High 26.0-32.0 [facility] MCHC (RBC) [Mass/Vol] 34.3 g/dL Normal 32.0-35.0 [facility] MCV (RBC) [Entitic vol] 95 fL Normal 75-100 [facility] Monocytes (Bld) [#/Vol] 0.85 10*3/uL Normal 0.1-1.0 [facility] Monocytes/100 WBC (Bld) 9.9 % Normal 0-13 [facility] Neutrophils/100 WBC (Bld) 64.7 % Normal 45-75 [facility] PLATELET 124 THOUS/CMM Low 140-440 [facility] RBC 5.27 MILL/CMM Normal 4.40-6.10 [facility] WBC 8.6 THDS/CMM Normal 3.6-11.0 [facility] 36on 06-08-2024 36 Regarding stress vicenta t result from 05/17/2024: AUGUSTO Garcia MA Please let him know I reviewed his stress with Dr. Huddleston. There's some evidence of scaring but no noted ischemia. Would like to try to optimize his medications to see if this will help his symptoms. Would like to start Imdur 30mg daily and Amlodipine 5mg daily which will also help with better BP control. Dr. Huddleston also really wants his cholesterol levels better controlled as they have been uncontrolled for the past couple of years. Very important his cholesterol levels are better controlled given his hx of diabetes. We will have our cardiology pharmacist [facility] reach out to him who can further help. Please schedule him for follow-up with Dr. Huddleston in 6-8 weeks. Thank you Spoke with patient and informed him of above message from Dianne. He agrees to start isosorbide and amlodipine. Sent to [facility] per his request. He will see Dr. Huddleston in clinic on 07/16/2024 in [place]. Do you need me to send something to [facility] or did you already? Normal [facility] Documentationon 06-08-2024 Documentation [id number] Juan Miguel Jennings 1950 M Date Provider Department Center 06/08/2024 [id number] SHERWOOD HVC[facility]ICOAG [facility] Family History Problem Relation Age of Onset Heart disease Mother Heart disease Father Family Status - Relation Status Age at Mother Father Reason for Visit and Comments: PharmD Cardiology Consult [Other] Normal [facility] Orders Onlyon 06-02-2024 Orders Only [id number] Juan Miguel Jennings 1950 M Date Provider Department Center 06/02/2024 PAUL JAIMES C[facility] Family History Problem Relation Age of Onset Heart disease Mother Heart disease Father Family Status - Relation Status Age at Mother Father Normal [facility] Reminderson 06-01-2024 Reminders Reminders From: Bertha Winter To: DEBBIE Saavedra; Sent: 05/21/2024 12:20:20 EST Show up: 05/28/2024 12:20:00 EST Subject: Blood donation update Due Date/Time: 05/28/2024 12:20:00 EST Reminder Message Please Remember to:_TRT was paused today until pt is able to donate blood. he is to get permission through his oncologist/help him facilitate blood donation. please call to see if this has been done if he hasn't called. 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 ( ) Call Pharmacy ( ) Call Lab ( ) Other: Special Instructions:_ Comments:_ Results in chart for review [facility] ALL CBC WITH AUTO DIFFon BASOPHILS ABSOLUTE AUTO 0 [facility] Basophils/100 WBC (Bld) 0.4 % 0.2 - 2.0 % [facility] Eosinophils/100 WBC (Bld) 4.2 % 0.9 - 7.0 % [facility] Erythrocyte distribution width (RBC) [Ratio] 13.8 % 11.0 - 15.0 % [facility] Hematocrit (Bld) [Volume fraction] 53 % 42.0 - 54.0 % [facility] Hemoglobin (Bld) [Mass/Vol] 17.9 g/dL 14.0 - 18.0 g/dL [facility] IMMATURE GRANULOCYTES ABS AUTO 0.01 [facility] Immature granulocytes/100 WBC (Bld) 0.1 % 0.0 - 0.5 % [facility] Interpretation and review of laboratory results Abnormal [facility] LYMPHOCYTES ABSOLUTE AUTO 1.1 Low [facility] Lymphocytes/100 WBC (Bld) 15 % Low 20.5 - 60.0 % [facility] MCH (RBC) [Entitic mass] 32.9 pg 25.9 - 34.0 pg [facility] MCHC (RBC) [Mass/Vol] 33.8 g/dL 29.9 - 35.2 g/dL [facility] MCV (RBC) [Entitic vol] 97.4 fL High 80.0 - 94.0 fL [facility] MONOCYTES ABSOLUTE AUTO 0.9 High [facility] Monocytes/100 WBC (Bld) 12.2 % High 1.7 - 12.0 % [facility] NEUTROPHILS ABSOLUTE AUTO 4.8 [facility] Neutrophils/100 WBC (Bld) 68.1 % 43.0 - 75.0 % [facility] Platelet mean volume (Bld) [Entitic vol] 12.5 fL 9.5 - 13.5 fL [facility] TBH EO # 0.3 [facility] TBH PLT 144 Low [facility] RBC 5.44 [facility] WBC 7.1 [facility] Ambulatory Visit Summaryon 1 07-22-2023 Ambulatory Visit Summary Ambulatory Visit Summary JUAN MIGUEL JENNINGS :1950 Visit Date:05/21/2024 Ambulatory Visit Instructions Your Diagnosis Hypogonadism Elevated PSA BPH with urinary obstruction OAB (overactive bladder) Your Care Team Attending Physician - KERI [...] REMOVED FROM LEG, Stent placement. Discharge Vitals Temperature (Temporal Artery) 37 ???C Heart Rate (Peripheral) 58 Respiratory Rate 16 Blood Pressure 133/79 Height 198 cm Height 78 in Weight 160 kg Weight 352.739 lb BMI 40.81 What to do next You Need to Schedule the Following Appointments Follow Up with KERI NOLASCO, RACIEL Rg When: Where: [facility] [address], [place] [address]- Medications What How Much When Instructions Unchanged [...] Richelle) 400 Milligram Intramuscular Every 4 weeks Allergies No Known Allergies Problems Ongoing - Any problem that you are currently receiving treatment for. BPH with urinary obstruction Coronary artery disease Diabetes Elevated PSA History of colon cancer Hx of half-way use of blood thinners Hyperlipidemia Hypertension Hypogonadism Hypogonadism male Male impotence Myocardial infarction Nocturia OAB (overactive bladder) Open-angle glaucoma Sleep apnea Urinary frequency Urinary urgency Historical - Any problem that you are no longer receiving treatment for. Hx of hepatitis Phimosis Patient Survey You may receive a survey via text or e-mail asking about your office visit. Please share your experience with us by completing your survey. We appreciate your feedback and thank you for choosing us for your care. Education Materials Overactive Bladder, Adult Overactive bladder is a condition in which a person has a sudden and frequent need to urinate. A person might also leak urine if he or she cannot get to the bathroom fast enough (urinary incontinence). Sometimes, symptoms can interfere with work or social activities. What are the causes? Overactive bladder is associated with poor nerve signals between your bladder and your brain. Your bladder may get the signal to empty before it is full. You may also have very sensitive muscles that make your bladder squeeze too soon. This condition may also be caused by other factors, such as: ??? Medical conditions: ? Urinary tract infection. ? Infection of nearby tissues. ? Prostate enlargement. ? Bladder stones, inflammation, or tumors. ? Diabetes. ? Muscle or nerve weakness, especially from these conditions: ? A spinal cord injury. ? Stroke. ? Multiple sclerosis. ? Parkinson's disease. ??? Other causes: ? Surgery on the uterus or urethra. ? Drinking too much caffeine or alcohol. ? Certain medicines, especially those that eliminate extra fluid in the body (diuretics). ? Constipation. What increases the risk? You may be at greater risk for overactive bladder if you: ??? Are an older adult. ??? Smoke. ??? Are going through menopause. ??? Have prostate problems. ??? Have a neurological disease, such as stroke, dementia, Parkinson's disease, or multiple sclerosis (MS). ??? Ea (more content not included)... [facility] Urology Office/Clinic Noteon 05-21-2024 Urology Office/Clinic Note Urology Office/Clinic Note Chief Complaint hypogonadism HPI Staff 74yr old male pt here for 6mo f/u with testosterone level and injection. Previous Dx: hypogonadism, elevated PSA, BPH with urinary obstruction, urinary urgency, phimosis *Testosterone decreased from 450mg to 400mg q4wks, & tamsulosin increased from 0.4mg qd to bid at last OV; oxybutynin 5mg qd Testosterone level: 10/20/22 - 321 05/23/23 - 11/21/23 - 05/08/24 - Dysuria: denies Incomplete bladder emptying: states he feels he empties well most days Hematuria: denies Frequency: every couple of hours Urgency: denies Nocturia: 1x Stream: steady flow no straining Leaking: denies Post void dripping: denies Wearing pads/ Depends: denies Urge incontinence: denies Stress incontinence: denies Incontinence without Sensory Awareness: denies Abdominal pain: denies Flank pain: denies Sexual complaints: denies History of Present Illness Tests reviewed: UA, T level, HGB I have reviewed the previous health record information and history for this patient from Dr. Saavedra. I have reviewed and verified the staff [...] Physical Exam Vitals & Measurements T: 37 ???C(Temporal Artery) HR: 58(Peripheral) RR: 16 BP: 133/79 HT: 78 in HT: 198 cm WT: 160 kg WT: 352.739 lb BMI: 40.81 General Appearance: alert, no distress, well nourished, well developed male. Assessment/Plan 1. Hypogonadism (E23.7: Disorder of pituitary gland, unspecified) Testosterone: 01/11/22 - 144 05/05/22 - 323 10/20/22 - 321 10/28/22 - HGB 17.7, HCT 50.2 05/23/23 - 278 (ref range 250 - 827) 10/25/23 - HGB 17.5 11/21/23 - 412 (ref range 264 - 916) 03/27/24 - HGB 17.1 (13.2-17.1) 04/23/24 - last inj 05/08/24 - 461 *one day late Decreased Testosterone IM to 400 mg at prior OV due to high hgb, maintained frequency of q4wks. T level increased even after TRT was decreased. Will decrease T leve to 350 mg, maintain frequency of q4wk. Has not been able to donate blood, [facility] will not let him. Pt will talk to his oncologist in [place] to see if there is another way he can donate blood. Shares he got CBC drawn on 05/08 at [facility], no results on [facility], called lab and they did not have results. Only lipids and T level drawn. Likely did not draw HGB/CBC. Follow up pending HGB/CBC below or sooner if needed. Pt understands and agrees with plan. -Decrease Testosterone IM to 350 mg, maintain q4wk. Pause TRT until we have current HGB level and until he donates blood. -Donate blood. Pt will call onc to facilitate blood donation/get permission for [facility]. 2. Elevated PSA (R97.20: Elevated prostate specific antigen [PSA]) PSA: 01/11/22 - 0.22 05/05/22 - 0.11 10/20/22 - 0.44 06/20/23 - 0.08 SHEREEN 06/20/23: 30gms, benign Hx of rectal cancer, tx'd w/ chemo and radiation in 2006. 3. BPH with urinary obstruction (N40.1: Benign prostatic hyperplasia with lower urinary tract symptoms) UA neg. Increased Flomax 0.4 mg to bid at prior OV. 4. OAB (overactive bladder) (N32.81: Overactive bladder) Taking Oxybutynin 5mg qd. Follow-up With When Contact Information KERI NOLASCO, Topher Ordoñez, URL [facility] [address], [place] [address]- Additional Instructions: f/u pending HGB/CBC and blood donation Patient Education Overactive Bladder, Adult I, Bertha Winter, personally scribed for Dr. Saavedra on 05/21/2024 12:16:53. . Documentation recorded by the scribe, Bertha Winter, accurately reflects the services(s) I performed and decisions made by me. Authenticated by Dr. Saavedra on 05/21/2024 12:18:25. 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 Medications aspirin 81 mg oral tablet, Oral, Daily cyclobenzaprine 10 mg Tab, 10 mg= 1 tab(s), (more content not included)... [facility] Comment on above: Result Comment: Elec tronically Signed By: Topher SAAVEDRA MD\.br\Date and Time Signed: 05/21/24 12:18 EST\.br\Electronically Co-Signed By: Bertha Winter\.br\Date and Time Co-Signed: 05/21/24 12:17 EST ALL LIPID PROFILE (FASTING)o n 05-08-2024 [facility]OL [facility] Comment on above: 3.3 - 4.4 LOW RISK 4.4 - 7.1 AVERAGE RISK 7.1 - 11.0 MODERATE RISK >11.0 HIGH RISK Cholesterol [Mass/Vol] 189 mg/dL NINF - 200 mg/dL [facility] Cholesterol in HDL [Mass/Vol] 42 mg/dL 40 - 60 mg/dL [facility] Comment on above: > or =60 mg/dl - LOW CARDIOVASCULAR RISK <40 mg/dl - HIGH CARDIOVASCULAR RISK LDL CHOLESTEROL CALCULATED 124.2 mg/dL [facility] Comment on above: <100 mg/dl OPTIMAL 100-129 mg/dl NEAR OR ABOVE OPTIMAL 130-159 mg/dl BORDERLINE HIGH 160-189 mg/dl HIGH >190 mg/dl VERY HIGH Magnesium [Mass/Vol] 22.8 mg/dL [facility] Triglyceride [Mass/Vol] 114 mg/dL NINF - 150 mg/dL [facility] Office Visiton 05-02-2024 Follow-up visit [id number] Juan Miguel Jennings 1950 M Date Provider Department Center 05/02/2024 [facility] JAIMES [facility] [place] [facility] Family History Problem Relation Age of Onset Heart disease Mother Heart disease Father Family Status - Relation Status Age at Mother Father Level of Service:65789 OK OFFICE/OUTPATIENT ESTABLISHED MOD MDM 30 MIN Reason for Visit and Comments: Coronary Artery Disease [187] Hypertension [285303] Normal [facility] Ambulatory Visit Summaryon 1 06-23-2023 Ambulatory Visit [...] AM EST With: Where: [facility] [address] [facility] [address] [place], [place] [id number]- Tuesday 10:45 AM EST With: KERI NOLASCO, Topher Ordoñez Where: [facility] [address] [facility] [place] [address]- Medications What How Much When Instructions Unchanged [...] PSA History of colon cancer 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 Normal [facility] CBC W/AUTO DIFFon 02-22-2024 ABS [...] on above: Result Comment: [facility] [address] [place] [address] CLIA No. [id number] CAP Accreditation No. [id number] Director Digital Catalogue: Shaunna Dee M.D. Platelets (Bld) [#/Vol] 128 [...] JORDAN Brown This Is Your Medications List [facility] Prescription (METOPROLOL TARTRATE 100 MG TAB) aspirin [...] 9:30 AM EDT Where: [facility] of [address] [address]- Medications What How Much When Instructions Unchanged [...] PSA History of colon cancer Hx of half-way use of blood thinners Hyperlipidemia Hypertension Hypogonadism [...] choosing us for your care. Armando Castillo [facility] Urology Office/Clinic Noteon 12-05-2023 Urology Office/Clinic [...] and history for this patient from Dr. Saavedra. I have reviewed and verified the staff [...] [facility] [address], [place] [phone] Additional Instructions: 6 mos w/ T level and Hgb Patient Education Hypogonadism, Male I, Erica Marin, personally scribed for Dr. Saavedra on 12/05/2023 11:40:12. . Documentation recorded by the scribe, Erica Marin, accurately reflects the services(s) I performed and decisions made by me. Authenticated by Dr. Saavedra on 12/05/2023 11:41:54. 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 Normal [facility] Comment on above: Result Comment: Elec tronically Signed By: Topher SAAVEDRA MD\.br\Date and Time Signed: 12/05/23 11:42 EDT\.br\Electronically Co-Signed By: Erica Mairn\.br\Date and Time Co-Signed: 12/05/23 11:40 EDT [facility] 11-22-2023 Lab Reports [id number] .00TIFF Normal [facility] 11-09-2023 Lab Reports [id number] .00TIFF Normal [facility] CBC W/AUTO DIFFon 10-25-2023 ABS [...] Inc Comment on above: Result Comment: [facility] [address] [place] [address] CLIA No. [id number] CAP Accreditation No. [id number] Director Digital Catalogue: Shaunna Dee M.D. Platelets (Bld) [#/Vol] 141 [...] 9:00 AM EDT Where: [facility] Ambulatory Visit Summaryon 0 09-09-2023 Ambulatory Visit [...] Tuesday 8:30 AM EDT Where: [facility] 07-15-2023 Lab Reports [id number] [facility]-28-2023 Lab Reports [id number] .00TIFF [facility] Ambulatory Visit Summaryon 0 1-15-2024 Ambulatory Visit Summary JUAN MIGUEL JENNINGS :1950 Visit Date:06/20/2023 Ambulatory Visit Instructions Your Diagnosis Hypogonadism male Elevated PSA BPH with urinary obstruction Phimosis Urinary urgency Tests Performed Urnls Dip Stick Auto w/o Microscopy POC [id number] Your Care Team Attending Physician - KERI [...] 9:30 AM EST Where: [facility] Patient Educationon 06-20-19 24 Patient Education Urology [...] Follow these instructions at home: ? Take [id number]-[id number] and prescription medicines only as told by [...] 01/22/2021 Document (more content not included)... Normal [facility] Urology Office/Clinic Noteon 06-20-2023 Urology [...] and history for this patient from Dr. Saavedra. I have reviewed and verified the staff [...] [facility] [address], [place] [address] [phone] Additional Instructions: 6 mos w/ PSA and T level (pt to also get PSA now) Patient Education Hypogonadism, Male I, Erica Marin, personally scribed for Dr. Saavedra on 06/20/2023 11:26:15. . Documentation recorded by the scribeErica, accurately reflects the services(s) I performed and decisions made by me. Authenticated by Dr. Saavedra on 06/20/2023 11:28:12. Problem List/Past Medical History Ongoing BPH with urinary obstruction Coronary artery disease Diabetes Elevated PSA History of colon cancer Hx of half-way use of blood thinners Hyperlipidemia Hypertension Hypogonadism [...] 1 tab(s (more content not included)... Normal [facility] Comment on above: Result Comment: Elec tronically Signed By: Topher SAAVEDRA MD\.br\Date and Time Signed: 06/20/23 11:28 EST\.br\Electronically Co-Signed By: Erica Marin\.br\Date and Time Co-Signed: 06/20/23 11:26 EST POINT OF CARE GLUCOSEon 09-05 Glucose [Mass/Vol] 112 mg/dL Critically high 74-106 [facility] Comment on above: Performed By: #### P OCGLUC #### [facility] [address] [place] [address] Dr. Partia Sanders CBC AUTO DIFFon 09-15-2022 BASO # 0.0 103/ul Normal 0.0-0.1 [facility] Comment on above: Performed By: #### C BC #### [facility] [address] [address] [address] Patria Sanders Basophils/100 WBC (Bld) 0.5 % Normal 0.2-2.0 [facility] Comment on above: Performed By: #### C BC #### [facility] [address] [address] [address] Patria Sanders EO # 0.3 103/ul Normal 0.0-0.7 [facility] Comment on above: Performed By: #### C BC #### [facility] [address] [address] [address] Patria Sanders Eosinophils/100 WBC (Bld) 3.2 % Normal 0.9-7.0 [facility] Comment on above: Performed By: #### C BC #### [facility] [address] [place] [address] Dr. Patria Sanders Erythrocyte distribution width (RBC) [Ratio] 14.5 % Normal 11.0-15.0 [facility] Comment on above: Performed By: #### C BC #### [facility] [address] [place] [address] Dr. Patria Sanders Hematocrit (Bld) [Volume fraction] 49.0 % Normal 42.0-54.0 [facility] Comment on above: Performed By: #### C BC #### [facility] [address] [place] [address] Dr. Patria Sanders Hemoglobin (Bld) [Mass/Vol] 16.7 g/dL Normal 14.0-18.0 [facility] Comment on above: Performed By: #### C BC #### [facility] [address] [place] [address] Dr. Patria Sanders IG # 0.03 10e3/ul Normal 0.00-0.03 [facility] Comment on above: Performed By: #### C BC #### [facility] [address] [place] [address] Dr. Patria Sanders IG % 0.4 % Normal 0.0-0.5 [facility] Comment on above: Performed By: #### C BC #### [facility] [address] [place] [address] Dr. Patria Sanders LYMPH # 1.1 103/ul Critically low 1.2-3.8 [facility] Comment on above: Performed By: #### C BC #### [facility] [address] [place] [address] Dr. Patria Sanders Lymphocytes/100 WBC (Bld) 14.5 % Critically low 20.5-60.0 [facility] Comment on above: Performed By: #### C BC #### [facility] [address] [place] [address] Dr. Patria Sanders MANUAL DIFF REQ NO Normal [facility] Comment on above: Performed By: #### C BC #### [facility] [address] [place] [address] Dr. Patria Sanders MCH (RBC) [Entitic mass] 32.6 pg Normal 25.9-34.0 [facility] Comment on above: Performed By: #### C BC #### [facility] [address] [place] [address] Dr. Patria Sanders MCHC (RBC) [Mass/Vol] 34.1 g/dL Normal 29.9-35.2 [facility] Comment on above: Performed By: #### C BC #### [facility] [address] [place] [address] Dr. Patria Sanders MCV (RBC) [Entitic vol] 95.5 fL Critically high 80.0-94.0 [facility] Comment on above: Performed By: #### C BC #### [facility] [address] [place] [address] Dr. Patria Sanders MONO # 0.8 103/ul Normal 0.3-0.8 [facility] Comment on above: Performed By: #### C BC #### [facility] [address] [place] [address] Dr. Patria Sanders Monocytes/100 WBC (Bld) 9.6 % Normal 1.7-12.0 [facility] Comment on above: Performed By: #### C BC #### [facility] [address] [place] [address] Dr. Patria Sanders NEUT # 5.6 103/ul Normal 1.4-6.5 [facility] Comment on above: Performed By: #### C BC #### [facility] [address] [place] [address] Dr. Patria Sanders Neutrophils/100 WBC (Bld) 71.8 % Normal 43.0-75.0 [facility] Comment on above: Performed By: #### C BC #### [facility] [address] [place] [address] Dr. Patria Sanders Platelet mean volume (Bld) [Entitic vol] 11.6 fL Normal 9.5-13.5 [facility] Comment on above: Performed By: #### C BC #### [facility] [address] [address] [address] Patria Sanders PLT 154 103/ul Normal 150-450 [facility] Comment on above: Performed By: #### C BC #### [facility] [address] [place] [address] Dr. Patria Sanders RBC 5.13 106/ul Normal 4.70-6.10 [facility] Comment on above: Performed By: #### C BC #### [facility] [address] [place] [address] Dr. Patria Sanders WBC 7.8 103/ul Normal 4.0-11.0 [facility] Comment on above: Performed By: #### C BC #### [facility] [address] [place] [address] Dr. Patria Sanders PROF CHEM 8 (BAS METB)on Anion gap [Moles/Vol] 11.4 mmol/L Normal [facility] Comment on above: Performed By: #### B MP #### [facility] [address] [place] [address] Dr. Patria Sanders Calcium [Mass/Vol] 9.1 mg/dL Normal 8.5-10.1 [facility] Comment on above: Performed By: #### B MP #### [facility] [address] [place] [address] Dr. Patria Sanders Chloride [Moles/Vol] 104 mmol/L Normal 98-107 [facility] Comment on above: Performed By: #### B MP #### [facility] [address] [place] [address] Dr. Patria Sanders CO2 [Moles/Vol] 28.7 mmol/L Normal 21.0-32.0 [facility] Comment on above: Performed By: #### B MP #### [facility] [address] [place] [address] Dr. Patria Sanders Creatinine [Mass/Vol] 0.80 mg/dL Normal 0.70-1.30 [facility] Comment on above: Performed By: #### B MP #### [facility] [address] [address] [address] Patria Sanders EGFR-AF TANZANIAN >60 Normal >=60 [facility] Comment on above: Performed By: #### B MP #### [facility] [address] [place] [address] Dr. Patria Sanders EGFR-NON AF TANZANIAN >60 Normal >=60 [facility] Comment on above: Performed By: #### B MP #### [facility] [address] [address] [address] Patria Sanders Glucose [Mass/Vol] 101 mg/dL Normal 74-106 [facility] Comment on above: Performed By: #### B MP #### [facility] [address] [place] [address] Dr. Patria Sanders Potassium [Moles/Vol] 4.1 mmol/L Normal 3.5-5.1 [facility] Comment on above: Performed By: #### B MP #### [facility] [address] [place] [address] Dr. Patria Sanders Sodium [Moles/Vol] 140 mmol/L Normal 136-145 [facility] Comment on above: Performed By: #### B MP #### [facility] [address] [place] [address] Dr. Patria Sanders Urea nitrogen [Mass/Vol] 11.0 mg/dL Normal 7.0-18.0 [facility] Comment on above: Performed By: #### B MP #### [facility] [address] [address] [address] Patria Sanders Urea nitrogen/Creatinine [Mass ratio] 13.8 mg/mg Normal [facility] Comment on above: Performed By: #### B MP #### [facility] [address] [place] [address] Dr. Patria Sanders PROTIMEon 09-15-2022 INR Coag (PPP) [Relative time] 1.02 {INR} Normal [facility] Comment on above: Performed By: #### P TT, PT #### [facility] [address] [place] [address] Dr. Patria Sanders INR GUIDELINES SEE BELOW Normal [facility] Comment on above: Result Comment: SANTO RED INR: 2.0 - 3.0 CONDITIONS NOT LISTED BELOW 2.5 - 3.5 FOR PROSTHETIC HEART VALVE REPLACEMENT 2.5 - 3.5 RECURRENT THROMBOSIS Performed By: #### P TT, PT #### [facility] [address] [place] [address] Dr. Patria Sanders PT Coag (PPP) [Time] 10.8 s Normal 9.0-11.6 [facility] Comment on above: Performed By: #### P TT, PT #### [facility] [address] [place] [address] Dr. Patria Sanders PTTon 09-15-2022 aPTT Coag (Bld) [Time] 32.0 s Normal 22.3-36.2 [facility] Comment on above: Performed By: #### P TT, PT #### [facility] [address] [place] [address] Dr. Patria Sanders Covid-19 PCR ([facility])on 01-04 SARS-CoV-2 (COVID-19) RNA NANCY+probe Ql (Unsp spec) Not detected Normal NOT DETECTED [facility] Comment on above: Result Comment: This test is not yet approved or cleared by the [place] FDA. When there are no FDA-approved or cleared tests available, and other criteria are met, FDA can make tests available under an emergency access mechanism called an Emergency Use Authorization (EUA). The EUA for this test is supported by the Egg Breaking [employer] Operator of Health and Human Service's (HHS's) declaration [...] SARS-CoV-2. Performed By: #### C VDTB #### [facility] [address] [place], [place] [address] Dr. Patria Sanders Hemoglobin A1Con 09-24-2021 EAG 128.37 Normal [facility] [place] [facility] Comment on above: Performed By: #### A 1C #### [facility] [address] [place], [place] [id number] HbA1c (Bld) [Mass fraction] 6.1 % High 4.0-6.0 [facility] Control Board Operator Comment on above: Performed By: #### A 1C #### [facility] [address] [place], [place] [id number] Testosteroneon 05-11-2021 TESTOS 314.70 ng/dL Normal 193.00-740.00 [facility] Control Board Operator Comment on above: Performed By: #### T EST #### [facility] [address] [place], [place] [id number] XR femur BIon 05-06-2021 XR femur BI [facility] Main [place] [address] [place] [address] XRay Report Signed Patient: Juan Miguel Jennings MR#: [id number] 25 : 1950 Acct:[id number] Age/Sex: 71 / M ADM Date: 05/06/21 Loc: ICXD Room: Type: [facility] Attending Dr: Maxwell Staley PA-C Ordering Provider: Maxwell Staley PA-C Date of Service: 05/06/21 XR/XR chest 2V*: Z01.818 ([id number]) XR/XR femur BI: Z01.818 ([id number]) XR/XR tibia/fibula BI: . Copies to: Maxwell [...] Rosanne Echeverria M.D.05/06/2021 3:12 PM Dictation Location: [place] [address] Transcribed By: [facility] 05/06/21 1512 Dictated By: Rosanne Echeverria MD 05/06/21 1506 Signed By: 05/06/21 1512 [facility] Progress Noteon 10-12-2017 HIM IP Note OR [employer] Tele[employer] Operator [facility] Vital Signs Date Time Vital Sign Value Performing Clinician Facility 07-05-2024 13:45-0500 Diastolic blood pressure 72 mm[Hg] [facility] [employer] 07-05-2024 13:45-0500 Heart rate 77 /min [facility] 07-05-2024 13:45-0500 Systolic blood pressure 135 mm[Hg] [facility] [employer] 07-05-2024 13:16-0500 Body temperature 97.5 [degF] Mthz Schedule [facility] [employer] 07-05-2024 13:16-0500 Respiratory rate 18 /min Mthz Schedule [facility] 05-21-2024 10:44-0500 Blood Pressure Location Topher KERI [facility] 05-21-2024 10:44-0500 Body temperature 98.6 [degF] Topher SAAVEDRA [facility] 05-21-2024 10:44-0500 Diastolic blood pressure 79 mm[Hg] Topher SAAVEDRA [facility] 05-21-2024 10:44-0500 Heart rate 58 /min Topher SAAVEDRA [facility] 05-21-2024 10:44-0500 Respiratory rate 16 /min Topher SAAVEDRA [facility] 05-21-2024 10:44-0500 Systolic blood pressure 133 mm[Hg] Topher SAAVEDRA [facility] 05-15-2024 10:21-0500 Body height 198.1 cm Brody Ibrahim DPM Work Phone: [facility] 05-15-2024 10:21-0500 Body mass index (BMI) [Ratio] 40.45 kg/m2 Brody Rusher DPM Work Phone: [facility] 05-15-2024 10:21-0500 Body weight 158.76 kg Brody Rusher DPM Work Phone: [facility] 04-23-2024 10:41-0500 Body height 198.1 cm Brody Hectorher DPM Work Phone: [facility] 04-23-2024 10:41-0500 Body mass index (BMI) [Ratio] 40.45 kg/m2 Brody Rusher DPM Work Phone: [facility] 04-23-2024 10:41-0500 Body weight 158.76 kg Brody Rusher DPM Work Phone: [facility] 03-29-2024 12:49-0400 Body height 198.1 cm Brody Ibrahim DPM Work Phone: [facility] 03-29-2024 12:49-0400 Body mass index (BMI) [Ratio] 40.45 kg/m2 Brody Ibrahim DPM Work Phone: [facility] 03-29-2024 12:49-0400 Body weight 158.76 kg Brody Ibrahim DPM Work Phone: [facility] 03-27-2024 14:00-0400 Body height 198.1 cm Jordan Duncan MD Work Phone: [facility] 03-27-2024 14:00-0400 Body mass index (BMI) [Ratio] 40.45 kg/m2 Jordan Duncan MD Work Phone: [facility] 03-27-2024 14:00-0400 Body weight 158.76 kg Jordan Duncan MD Work Phone: [facility] 03-27-2024 14:00-0400 Diastolic blood pressure 76 mm[Hg] Jordan Duncan MD Work Phone: [facility] 03-27-2024 14:00-0400 Heart rate 71 /min Jordan Duncan MD Work Phone: [facility] 03-27-2024 14:00-0400 SaO2% (BldA) [Mass fraction] 97 % Jordan Duncan MD Work Phone: [facility] 03-27-2024 14:00-0400 Systolic blood pressure 128 mm[Hg] Jordan Duncan MD Work Phone: [facility] 03-13-2024 09:41-0400 Body height 198.1 cm Brody Ibrahim DPM Work Phone: [facility] 03-13-2024 09:41-0400 Body mass index (BMI) [Ratio] 40.45 kg/m2 Brody Ibrahim DPM Work Phone: [facility] 03-13-2024 09:41-0400 Body weight 158.76 kg Brody Ibrahim DPM Work Phone: [facility] 12-05-2023 10:38-0400 Blood Pressure Location Topher KERI [facility] 12-05-2023 10:38-0400 Body temperature 98.6 [degF] Topher SAAVEDRA [facility] 12-05-2023 10:38-0400 Diastolic blood pressure 86 mm[Hg] Topher SAAVEDRA [facility] 12-05-2023 10:38-0400 Heart rate 69 /min Topher SAAVEDRA [facility] 12-05-2023 10:38-0400 Respiratory rate 16 /min Topher SAAVEDRA [facility] 12-05-2023 10:38-0400 Systolic blood pressure 136 mm[Hg] Topher SAAVEDRA [facility] 07-19-2023 10:37-0500 Body height 198.1 cm Brody Ibrahim DPM Work Phone: [facility] 07-19-2023 10:37-0500 Body mass index (BMI) [Ratio] 39.87 kg/m2 Brody Ibrahim DPM Work Phone: [facility] 07-19-2023 10:37-0500 Body weight 156.49 kg Brody Ibrahim DPM Work Phone: [facility] 06-20-2023 10:33-0500 Blood Pressure Location Topher SAAVEDRA [facility] 06-20-2023 10:33-0500 Diastolic blood pressure 86 mm[Hg] Topher SAAVEDRA [facility] 06-20-2023 10:33-0500 Heart rate 70 /min Topherpeter SAAVEDRA [facility] 06-20-2023 10:33-0500 Respiratory rate 16 /min Topher SAAVEDRA [facility] 06-20-2023 10:33-0500 Systolic blood pressure 139 mm[Hg] Topher SAAVEDRA [facility] 11-05-2022 10:12-0400 Blood Pressure Location Topherpeter SAAVEDRA [facility] 11-05-2022 10:12-0400 Diastolic blood pressure 78 mm[Hg] Topher SAAVEDRA [facility] 11-05-2022 10:12-0400 Heart rate 68 /min Topher SAAVEDRA [facility] 11-05-2022 10:12-0400 Respiratory rate 16 /min Topher SAAVEDRA [facility] 11-05-2022 10:12-0400 Systolic blood pressure 130 mm[Hg] Topher SAAVEDRA [facility] 11-03-2022 14:34-0400 Body temperature 97.5 [degF] Mthz Schedule [facility] 11-03-2022 14:34-0400 Diastolic blood pressure 77 mm[Hg] Mthz Schedule [facility] 11-03-2022 14:34-0400 Heart rate 72 /min Mthz Schedule [facility] 11-03-2022 14:34-0400 Respiratory rate 18 /min Mthz Schedule [facility] 11-03-2022 14:34-0400 Systolic blood pressure 140 mm[Hg] Mthz Schedule [facility] 06-18-2022 08:55-0500 Blood Pressure Location Topher SAAVEDRA [facility] 06-18-2022 08:55-0500 Diastolic blood pressure 82 mm[Hg] Topher SAAVEDRA [facility] 06-18-2022 08:55-0500 Heart rate 80 /min Topher SAAVEDRA [facility] 06-18-2022 08:55-0500 Respiratory rate 16 /min Topher SAAVEDRA [facility] 06-18-2022 08:55-0500 Systolic blood pressure 132 mm[Hg] Topher SAAVEDRA [facility] 05-17-2022 09:43-0500 Blood Pressure Location Topher SAAVEDRA [facility] 05-17-2022 09:43-0500 Diastolic blood pressure 92 mm[Hg] Topher SAAVEDRA [facility] 05-17-2022 09:43-0500 Heart rate 63 /min Topher SAAVEDRA [facility] 05-17-2022 09:43-0500 Systolic blood pressure 143 mm[Hg] Topher SAAVEDRA [facility] 02-01-2022 09:48-0400 Blood Pressure Location Topher SAAVEDRA [facility] 02-01-2022 09:48-0400 Diastolic blood pressure 66 mm[Hg] Topher SAAVEDRA [facility] 02-01-2022 09:48-0400 Heart rate 84 /min Topher SAAVEDRA [facility] 02-01-2022 09:48-0400 Respiratory rate 16 /min Topher SAAVEDRA [facility] 02-01-2022 09:48-0400 Systolic blood pressure 98 mm[Hg] Topher SAAVEDRA [facility] 01-28-2022 13:48-0400 Diastolic blood pressure 76 mm[Hg] [facility] [employer] 01-28-2022 13:48-0400 Heart rate 56 /min Mthz Lab Schedule [facility] [employer] 01-28-2022 13:48-0400 Respiratory rate 18 /min Mthz Lab Schedule [facility] [employer] 01-28-2022 13:48-0400 Systolic blood pressure 135 mm[Hg] [facility] [employer] 01-28-2022 13:25-0400 Body temperature 97.39 [degF] Mthz Lab Schedule [facility] [employer] 10-22-2020 12:25-0400 Body temperature 97.81 [degF] Mthz Schedule [employer] Work Phone: 10-22-2020 12:25-0400 Heart rate 67 /min [facility] Schedule [employer] Work Phone: 07-27-2019 08:03-0500 Body Temperature 96.3 [degF] Mthz Schedule [facility] [place] 07-27-2019 08:03-0500 BP Diastolic 80 mm[Hg] Mthz Schedule [facility] [place] , [place] 07-27-2019 08:03-0500 BP Systolic 129 mm[Hg] Mthz Schedule [facility] [place] 07-27-2019 08:03-0500 Pulse (Heart Rate) 63 /min [facility] [employer] [place] 07-27-2019 08:03-0500 Respiratory Rate 20 /min [facility] [place] 03-13-2019 08:02-0400 Body Temperature 96.69 [degF] [facility] [place] 03-13-2019 08:02-0400 BP Diastolic 83 mm[Hg] [facility] [place] [facility] [place] 03-13-2019 08:02-0400 BP Systolic 162 mm[Hg] [facility] Schedule [facility] [place] , [place] 03-13-2019 08:02-0400 Pulse (Heart Rate) 74 /min [facility] Schedule [facility]- [place], [place] 03-13-2019 08:02-0400 Respiratory Rate 20 /min [facility] [place] 01-12-2019 08:03-0400 Body Temperature 96.91 [degF] [facility] [place] 01-12-2019 08:03-0400 BP Diastolic 87 mm[Hg] [facility] Schedule [facility] [place] , [place] 01-12-2019 08:03-0400 BP Systolic 152 mm[Hg] [facility] Schedule [facility]- [place] , [place] 01-12-2019 08:03-0400 Pulse (Heart Rate) 63 /min [facility] Schedule [facility]- [place], [place] 01-12-2019 08:03-0400 Respiratory Rate 20 /min [facility] [place] [facility] [place] Encounters Encounter Date Encounter Type Care Provider Facility Start: 07-05-2024 End: 07-05-2024 ambulatory [facility] Start: 07-05-2024 End: 07-05-2024 Subsequent hospital visit by physician [facility] Med Onc Fast Track Chair 1 Schedule [facility] Comment on above: Polycythemia (Primar y Dx) Start: 06-18-2024 End: 06-18-2024 Telephone encounter Jordan Duncan MD Work Phone: [facility] Start: 05-22-2024 End: 05-22-2024 Clinisync Result Encounter Generic External Data Provider [facility] External Department Unsolicited Start: 05-22-2024 End: 05-22-2024 Clinisync Result Encounter Generic External Data Provider [facility] External Department Unsolicited Start: 05-21-2024 End: 05-21-2024 ambulatory Topher SAAVEDRA Facility[facility] Start: 05-21-2024 End: 05-21-2024 Patient encounter procedure Topher R KERI [facility] Start: 05-15-2024 End: 05-15-2024 ambulatory BRODY IBRAHIM Not Available Start: 05-15-2024 End: 05-15-2024 Postop follow up visit related to original px Brody Ibrahim DPM Work Phone: [facility] Comment on above: Diabetic polyneuropa thy associated with type 2 diabetes mellitus (CMS/HCC) (Primary Dx); Nontraumatic amputation of foot, left (CMS/HCC); Nontraumatic amputation of foot, right (CMS/HCC) Start: 05-08-2024 End: 05-08-2024 Clinisync Result Encounter Generic External Data Provider [facility] External Department Unsolicited Start: 05-08-2024 End: 05-08-2024 Clinisync Result Encounter Generic External Data Provider [facility] External Department Unsolicited Start: 05-08-2024 ambulatory Topher SAAVEDRA Facili ty:[facility] Start: 05-02-2024 End: 05-02-2024 ambulatory [facility] Start: 04-23-2024 End: 04-23-2024 Bamboo flowsheet Brody Ibrahim DPM Work Phone: [facility] Start: 04-23-2024 End: 04-23-2024 Bamboo flowstony Ibrahim DPM Work Phone: [facility] Start: 04-23-2024 End: 04-23-2024 ambulatory BRODY IBRAHIM Not Available Start: 04-23-2024 End: 04-23-2024 Patient encounter procedure Topher SAAVEDRA [facility] Comment on above: Diabetic polyneuropa thy associated with type 2 diabetes mellitus (CMS/HCC) (Primary Dx); Nontraumatic amputation of foot, left (CMS/HCC); Nontraumatic amputation of foot, right (CMS/HCC) Start: 04-09-2024 End: 04-09-2024 Telephone encounter Brody Ibrahim DPM Work Phone: [facility] Comment on above: Advice Only (orthoti cs) Start: 03-29-2024 End: 03-29-2024 Bamboo flowsheet Brody Ibrahim DPM Work Phone: [facility] Start: 03-29-2024 End: 03-29-2024 Bamboo flowsheet Brody Ibrahim DPM Work Phone: [facility] Start: 03-29-2024 End: 03-29-2024 Postop follow up visit related to original px Brody Ibrahim DPM Work Phone: [facility] Comment on above: Diabetic polyneuropa [...] microalbuminuria, without long-term current use of insulin ([facility]/HCC); Microalbuminuria; Essential hypertension ([facility]/HCC); Mixed hyperlipidemia ([facility]/HCC); Adverse reaction to statin medication; Former smoker; Morbid obesity ([facility]) Start: 03-27-2024 End: 03-27-2024 ambulatory JORDAN DUNCAN Not Available Start: 03-27-2024 End: 03-27-2024 ambulatory Topher SAAVEDRA Facility:[facility] Start: 03-27-2024 End: 03-27-2024 Patient encounter procedure Topher SAAVEDRA [facility] Start: 03-13-2024 End: 03-13-2024 Bamboo flowsheet Brody Ibrahim DPM Work Phone: [facility] Start: 03-13-2024 End: 03-13-2024 Bamboo flowsheet Brody Ibrahim DPM Work Phone: [facility] Start: 03-13-2024 End: 03-13-2024 Patient encounter procedure Brody Ibrahim DPM Work Phone: [facility] Comment on above: Acquired keratoderma (Primary Dx); Diabetic polyneuropathy associated with type 2 diabetes mellitus ([facility]/HCC); Nontraumatic amputation of foot, left ([facility]/HCC); Nontraumatic amputation of foot, right ([facility]/HCC) Start: 03-13-2024 End: 03-13-2024 ambulatory BRODY IBRAHIM Not Available Start: 03-01-2024 End: 03-01-2024 ambulatory JORDAN DUNCAN [facility] Start: 02-27-2024 End: 02-27-2024 ambulatory Topher SAAVEDRA Facility:[facility] Start: 02-27-2024 End: 02-27-2024 Patient encounter procedure [facility]VEDRA [facility] Start: 01-31-2024 End: 01-31-2024 ambulatory Fernanad Solomon Facility:[facility] Start: 01-31-2024 End: 01-31-2024 Patient encounter procedure Fernanda Solomon [facility] Start: 01-10-2024 End: 01-10-2024 ambulatory BRODY IBRAHIM Not Available Start: 01-03-2024 End: 01-03-2024 ambulatory Topher SAAVEDRA Facility:[facility] Start: 12-06-2023 End: 12-06-2023 ambulatory BRODY IBRAHIM Not Available Start: 12-05-2023 End: 12-05-2023 ambulatory Topher SAAVEDRA Facility: [place] Start: 12-05-2023 End: 12-05-2023 Patient encounter procedure Topher SAAVEDRA [facility] [employer] Start: 11-09-2023 End: 11-09-2023 ambulatory JORDAN DUNCAN [facility] Start: 11-07-2023 End: 11-07-2023 ambulatory Topher SAAVEDRA Facility:[facility] Start: 11-07-2023 End: 11-07-2023 Patient encounter procedure Topher SAAVEDRA [facility] Start: 10-27-2023 End: 10-27-2023 ambulatory JORDAN DUNCAN Not Available Start: 10-12-2023 End: 10-12-2023 ambulatory JORDAN DUNCAN Not Available Start: 10-07-2023 End: 10-07-2023 ambulatory Topher SAAVEDRA Facility:[facility] Start: 10-07-2023 End: 10-07-2023 Patient encounter procedure Topher SAAVEDRA [facility] Start: 09-27-2023 End: 09-27-2023 ambulatory BRODY IBRAHIM Not Available Start: 09-09-2023 End: 09-09-2023 ambulatory Topher SAAVEDRA [facility] Start: 09-09-2023 End: 09-09-2023 Patient encounter procedure Topher SAAVEDRA [facility] Start: 08-15-2023 End: 08-15-2023 ambulatory Topher SAAVEDRA Facility:[email or web address] Start: 08-15-2023 End: 08-15-2023 Patient encounter procedure Topher SAAVEDRA [facility] Start: 07-19-2023 Bamboo flowsheet Brody Tyler er DPM Work Phone: [facility] Start: 07-19-2023 Bamboo flowsheet Brody Tyler er DPM Work Phone: [facility] Start: 07-19-2023 End: 07-19-2023 ambulatory BRODY IBRAHIM Not Available Start: 07-19-2023 End: 07-19-2023 Patient encounter procedure Brody Ibrahim DPM Work Phone: [facility] Comment on above: Dermatophytosis of n ail (Primary Dx); Dystrophic nail; Diabetic polyneuropathy associated with type 2 diabetes mellitus (CMS/HCC); Nontraumatic amputation of foot, right (CMS/HCC); Nontraumatic amputation of foot, left (CMS/HCC); Acquired keratoderma Start: 07-18-2023 End: 07-18-2023 ambulatory Topher SAAVEDRA Facility[facility] Start: 07-18-2023 End: 07-18-2023 Patient encounter procedure Topher SAAVEDRA [facility] Start: 06-20-2023 End: 06-20-2023 ambulatory Topher SAAVEDRA Facility:[facility] Start: 06-20-2023 End: 06-20-2023 Patient encounter procedure Topher SAAVEDRA [facility] Start: 05-09-2023 End: 05-09-2023 Patient encounter procedure [facility]VEDRA [facility] Start: 04-04-2023 End: 04-04-2023 Patient encounter procedure Topher SAAVEDRA [facility] Start: 02-08-2023 End: 02-08-2023 Patient encounter procedure [facility]AN DUNCAN [facility] Start: 01-03-2023 End: 01-03-2023 Patient encounter procedure Topher SAAVEDRA [facility] Start: 12-03-2022 End: 12-03-2022 Patient encounter procedure Topher [facility]AAVEDRA [facility] [employer] Start: 11-05-2022 End: 11-05-2022 Patient encounter procedure Topher SAAVEDRA [facility] [employer] Start: 11-03-2022 End: 11-03-2022 Subsequent hospital visit by physician [facility] Room 7 Schedule [facility] Comment on above: Polycythemia (Primar y Dx) Start: 10-25-2022 End: 10-26-2022 ambulatory ARNOLD PEOPLES Facility:[facility] Start: 10-05-2022 End: 10-06-[address] JORDAN DUNCAN . Facility:[facility] Start: 10-05-2022 End: 10-05-2022 Patient encounter procedure Topher SAAVEDRA [facility] Start: 09-30-2022 End: 09-30-[address] TOPHER SAAVEDRA . Facility:[facility] Start: 09-27-2022 End: 09-28-2022 ambulatory ARNOLD PEOPLES Facility:[facility] Start: 09-20-2022 End: 09-21-2022 ambulatory ENEDINA HARGROVE Facility:[facility] Start: 09-20-2022 Encounter for preprocedural cardiovascular examination DR TOPHER SAAVEDRA . [facility] Start: 09-20-2022 Encounter for preprocedural laboratory examination DR TOPHER SAAVEDRA . [facility] Start: 09-20-2022 Encounter for preprocedural respiratory examination DR TOPHER SAAVEDRA . [facility] Start: 09-15-2022 End: 09-16-[address] TOPHER SAAVEDRA . Facility:[facility] Start: 09-15-2022 End: 09-16-2022 Encounter for preprocedural laboratory examination DR TOPHER SAAVEDRA . Facility:[facility] Start: 09-06-2022 End: 09-06-2022 Patient encounter procedure Topher SAAVEDRA [facility] Start: 06-18-2022 End: 06-18-2022 Patient encounter procedure Topher SAAVEDRA [facility] Start: 05-20-2022 End: 05-21-2022 ambulatory ENEDINA Schultz [facility] Facility:[facility] Start: 05-17-2022 End: 05-17-2022 Patient encounter procedure Topher SAAVEDRA [facility] Start: 04-21-2022 End: 04-22-2022 ambulatory [facility] Facility:[facility] Start: 04-21-2022 End: 04-21-2022 Patient encounter procedure Madny MBinta Silvano [facility] [employer] Start: 04-09-2022 End: 04-10-2022 ambulatory [facility] Facility:[facility] Start: 03-31-2022 End: 03-31-2022 Patient encounter procedure Mandy MBinta Chavarriajose [facility] [employer] Start: 03-22-2022 End: 03-23-2022 ambulatory [facility] Facility:[facility] Start: 03-03-2022 End: 03-03-2022 Patient encounter procedure Mandy MBinta Chavarriajose [facility] [employer] Start: 02-01-2022 End: 02-01-2022 Patient encounter procedure Topher SAAVEDRA [facility] [employer] Start: 01-28-2022 End: 01-28-2022 Subsequent hospital visit by physician [facility] [facility] Comment on above: Polycythemia (Primar y Dx) Start: 01-18-2022 End: 01-18-[address] JORDAN DUNCAN . Facility:H1 Start: 01-06-2022 End: 01-07-2022 ambulatory [facility] Facility:H1 Start: 12-21-2021 End: 12-21-2021 Patient encounter procedure Topher SAAVEDRA [facility] Start: 11-23-2021 End: 11-23-2021 Patient encounter procedure Topher SAAVEDRA [facility] Start: 10-26-2021 End: 10-26-2021 Patient encounter procedure Topher SAAVEDRA [facility] Start: 09-28-2021 End: 09-28-2021 Patient encounter procedure Topher SAAVEDRA [facility] Start: 08-31-2021 End: 08-31-2021 Patient encounter procedure Topher SAAVEDRA [facility] Start: 10-22-2020 End: 10-22-2020 Subsequent hospital visit by physician [facility] Med Onc Room 9 Schedule [facility] Comment on above: Polycythemia (Primar y Dx) Start: 07-27-2019 End: 07-27-2019 Subsequent hospital visit by physician [facility] Med Onc Room 9 Schedule [facility] Comment on above: Polycythemia (Primar y Dx) Start: 03-13-2019 End: 03-13-2019 Subsequent hospital visit by physician [facility] Med Onc Room 9 Schedule [facility] Comment on above: Polycythemia (Primar y Dx) Start: 01-12-2019 End: 01-12-2019 Subsequent hospital visit by physician [facility] Med Onc Room 9 Schedule [facility] Start: 02-16-2018 End: 02-17-2018 Patient encounter DEFAULT PHYSICIAN Facility:[facility] Procedures Date Procedure Procedure Detail Performing Clinician Start: 05-22-2024 ALL CBC WITH AUTO DIFF Generic External Data Provider Start: 05-08-2024 ALL LIPID PROFILE (FASTING) Generic External Data Provider Start: 09-30-2022 Circumcision Topher JENSEN Start: 12-17-2020 Colonoscopy Brody pelayo DPM Work Phone: Start: 05-23-2019 foot surgery Topher JENSEN Start: 05-13-2014 History of placement of stent for coronary artery disease S/P JORY - LCX & RCA ([id number]. kabour) [facility] Schedule BACK SURGERY Topher SAAVEDRA Placement of stent Topher Maria LANDENWEN RECTAL CANCER SURGERY Agustin SAAVEDRA RIGHT VEIN REMOVED F ROM LEG Topher SAAVEDRA Plan of Treatment Date Care Activity Detail Author Start: 12-17-2030 Screening for malignant neoplasm of colon [facility] Start: 09-29-2025 Glaucoma screening Diabetes: Retinopathy Screening [facility] Start: 02-21-2025 GFR test (Diabetes, CKD 3-4, OR last GFR 15-59) GFR test (Diabetes, CKD 3-4, OR last GFR 15-59) [facility] Start: 10-26-2024 End: 10-26-2024 Patient encounter procedure 10/26/2024 1:00 PM EDT Appointment [facility] [address] [place], [place] [id number] phlebotomy [facility] Comment on above: phlebotomy Start: 10-17-2024 End: 10-17-2024 Patient encounter procedure 10/17/2024 1:00 PM EDT Office Visit [facility] Part of [place] [id number] Newton Stevenson MD [address] [place] [address] F/U polycythemia, anal cancer [facility] Part of [facility] Comment on above: F/U polycythemia, anal cancer Start: 10-04-2024 Urine screening for protein Diabetes: Urine Protein Screening [facility] Start: 09-18-2024 End: 09-18-2024 Patient encounter procedure [facility] 100 Start: 08-25-2024 End: 03-27-2025 Comprehensive metabolic 2000 panel - Serum or Plasma Comprehensive metabolic panel Lab Routine Type 2 diabetes mellitus with diabetic polyneuropathy, without long-term current use of insulin (CMS/HCC) Essential hypertension (CMS/HCC) Expected: 08/25/2024, Expires: 03/27/2025 [facility] Work Phone: Comment on above: Expected: 08/25/2024, Expires: Start: 08-25-2024 End: 03-27-2025 Hemoglobin A1c/Hemoglobin.total in Blood Hemoglobin A1c Lab Routine Type 2 diabetes mellitus with diabetic polyneuropathy, without long-term current use of insulin ([facility]) Expected: 08/25/2024, Expires: 03/27/2025 [facility] Comment on above: Expected: 08/25/2024, Expires: Start: 08-25-2024 End: 03-27-2025 Lipid 1996 panel - Serum or Plasma Lipid panel Lab Routine Mixed hyperlipidemia ([facility]) Expected: 08/25/2024, Expires: 03/27/2025 [facility] Comment on above: Expected: 08/25/2024, Expires: Start: 06-21-2024 Hemoglobin A1c measurement Diabetes: Hemoglobin A1C [facility] Start: 05-17-2024 Medicare Annual Wellness (AWV) Medicare Annual Wellness (V) [facility] Start: 05-15-2024 End: 05-15-2024 Patient encounter procedure 05/15/2024 10:15 AM EST Office Visit [facility] [address] [place] [place] [address] Brody Ibrahim DPM [address] [facility] [place] [address] [facility] Start: 04-23-2024 End: 04-23-2024 Patient encounter procedure 04/23/2024 11:00 AM EST Office Visit [facility] [address] [place] [address] Brody Ibrahim DPM [address] [place] [address] [facility] Start: 04-09-2024 End: 04-09-2024 Patient encounter procedure 04/09/2024 9:30 AM EST Office Visit [facility] [address] [address] Jordan Duncan MD [address] [place] [address] (Fax) [facility] Start: 03-29-2024 End: 03-29-2024 Patient encounter procedure 03/29/2024 1:00 PM EDT Office Visit [facility] [address] [place] [phone] Brody Ibrahim DPM [address] [place], [place] [phone] Arrived [facility] Comment on above: Arrived Start: 03-27-2024 End: 03-27-2024 Patient encounter procedure 03/27/2024 2:00 PM EDT Office Visit [facility] [address] [address] Jordan Duncan MD [address] [place] [address] (Fax) Type 2 diabetes mellitus with diabetic [...] procedure 03/13/2024 9:45 AM EDT Office Visit [facility] [address] [place] [phone] rBody Ibrahim DPM [address] [place], [place] [phone] Arrived [facility] Comment on above: Arrived Start: 02-05-2024 COVID-19 Vaccine ( season) COVID-19 Vaccine () [facility] Start: 02-05-2024 Influenza vaccination Influenza Vaccine (#1) [facility] Start: 01-05-2024 Hemoglobin A1c measurement Diabetes: Hemoglobin A1C [facility] Start: 11-26-2023 Glaucoma screening Diabetes: Retinopathy Screening [facility] Start: 10-29-2023 GFR test (Diabetes, CKD 3-4, OR last GFR 15-59) GFR test (Diabetes, CKD 3-4, OR last GFR 15-59) [facility] Start: 10-26-2023 End: 10-26-2023 Patient encounter procedure 10/26/2023 Office Visit Oncology Chemo-Newton Villalba MD [address] [place] [address] [facility] Part of [facility] Start: 10-12-2023 End: 10-12-2023 Patient encounter procedure 10/12/2023 9:30 AM EDT Office Visit [facility] [address] [place] [address] Jordan Duncan MD [address] [place] [address] (Fax) [facility] Start: 09-27-2023 End: 09-27-2023 Patient encounter procedure 09/27/2023 11:00 AM EDT Procedure Visit [facility] [address] [place] [address] Brody Ibrahim DPM [address] [place], [place] [phone] [facility] Start: 07-14-2023 Hemoglobin A1c measurement Diabetes: Hemoglobin A1C [facility] Start: 05-02-2023 Annual Wellness Visit (Medicare) Annual Wellness Visit (Medicare) [facility] Start: 10-20-2022 End: 10-20-2022 Patient encounter procedure 10/20/2022 Office Visit Oncology Newton Stevenson MD [address] [place], [place] [phone] [facility] Start: 09-24-2022 Hemoglobin A1c measurement A1C test (Diabetic or Prediabetic) [facility] [employer] Start: 02-04-2022 Influenza vaccination Flu vaccine (#1) [facility] [employer] Start: 11-11-2021 Urine screening for protein [facility] [employer] Start: 10-21-2021 End: 10-21-2021 Patient encounter procedure 10/21/2021 Office Visit Oncology Newton Stevenson MD [address] [place] [address] [facility] Start: 10-16-2021 COVID-19 Vaccine (4 - Booster for Pfizer series) COVID-19 Vaccine (4 - Booster for Pfizer series) [facility] [employer] Start: 10-14-2021 Lipid panel Lipids [facility] [employer] Start: 10-24-2019 End: 10-24-2019 Office Visit [facility] Start: 07-31-2019 End: 07-31-2019 Appointment 07/31/2019 Appointment Infusion Therapy [facility] Start: 04-30-2019 End: 04-30-2019 Appointment 04/30/2019 Appointment Infusion Therapy [facility] Start: 02-04-2019 Influenza vaccination Flu vaccine (#1) [employer] Start: 11-26-2018 Annual Wellness Visit (AWV) Annual Wellness Visit (AWV) [employer] Start: 08-17-2017 Creatinine measurement Creatinine monitoring [employer] Work Phone: Start: 08-17-2017 Creatinine monitoring Creatinine monitoring [employer] Start: 08-17-2017 Potassium monitoring Potassium monitoring [place] Start: 08-04-2017 A1C test (Diabetic or Prediabetic) A1C test (Diabetic or Prediabetic) [place], [place] Start: 08-04-2017 Hemoglobin A1c measurement A1C test (Diabetic or Prediabetic) [facility] Start: 02-10-2017 Abdominal aortic aneurysm screening AAA screen [facility] Start: 02-10-2017 Pneumococcal 65+ years Vaccine (1 of 2 - PCV13) Pneumococcal 65+ years Vaccine (1 of 2 - PCV13) [place] Start: 01-29-2017 Shingles Vaccine (2 of 3) Shingles Vaccine (2 of 3) [facility] Start: 02-10-2015 Annual Wellness Visit (AWV) Annual Wellness Visit (AWV) [place], [place] Start: 2012 Respiratory Syncytial Virus (RSV) or age 60 yrs+ (1 - Risk 60-74 years 1-dose series) Respiratory Syncytial Virus (RSV) or age 60 yrs+ (1 - Risk 60-74 years 1-dose series) [facility] Start: 02-10-2002 Colon cancer screen colonoscopy Colon cancer screen colonoscopy [place], [place] Start: 02-10-2002 Screening for malignant neoplasm of colon Colon cancer screen colonoscopy [facility] Work Phone: Start: 02-10-2002 Shingles Vaccine (1 of 2) Shingles Vaccine (1 of 2) [place], [place] Start: 02-10-1997 Screening for malignant neoplasm of colon [facility] Start: 02-10-1971 DTaP/Tdap/Td vaccine (1 - Tdap) DTaP/Tdap/Td vaccine (1 - Tdap) [facility] Start: 02-10-1971 Hepatitis B vaccine (1 of 3 - Risk 3-dose series) Hepatitis B vaccine (1 of 3 - Risk 3-dose series) [place] Start: 02-10-1970 Diabetic microalbuminuria test Diabetic microalbuminuria test [place] Start: 02-10-1970 Diabetic retinal exam Diabetic retinal exam [facility] Start: 02-10-1970 Glaucoma screening Diabetic retinal exam [facility] Start: 02-10-1970 Hepatitis C screening Hepatitis C screen [facility] Start: 02-10-1970 Urine screening for protein Diabetic Alb to Cr ratio (uACR) test [facility] [employer] Start: 1964 Depression Screen Depression Screen [facility] [employer] Start: 02-10-1963 DTaP/Tdap/Td vaccine (1 - Tdap) DTaP/Tdap/Td vaccine (1 - Tdap) [place] Start: 02-10-1962 [object Object] Diabetic foot exam [place] Start: 02-10-1962 Diabetic foot examination Diabetic foot exam [facility] [employer] Start: 02-10-1962 Diabetic retinal exam Diabetic retinal exam [place] Start: 02-10-1962 Lipid panel [facility] Start: 02-10-1962 Lipid screen Lipid screen [place], [place] Start: 1952 Annual Wellness Visit (AWV) Annual Wellness Visit (AWV) [facility] Start: 1952 Hepatitis C screen Hepatitis C screen [place], [place] Start: 1952 Hepatitis C screening Hepatitis C screen [facility] [employer] Work Phone: Start: 1950 Screening for malignant neoplasm of colon [facility] End: 07-05-2024 Phlebotomy therapeutic Phlebotomy therapeutic Procedures Routine One Time for 1 Occurrences starting 07/05/2024 until 07/05/2024 [facility] [employer] Work Phone: Comment on above: One Time for 1 Occurrences starting 06/08 until 07/05/2024 Immunizations Immunization Date Immunization Notes Care Provider Shania durham 03-28-2024 influenza, seasonal, injectable Brody Ibrahim DPM Work Phone: [facility] 03-28-2024 Seasonal trivalent influenza vaccine, adjuvanted, preservative free Brody Ibrahim DPM Work Phone: [facility] 02-28-2023 influenza virus vacc ine, unspecified formulation Topher SAAVEDRA [facility] 02-28-2023 Influenza, Seasonal, Quadrivalent, Adjuvanted Brody Rusher DPM Work Phone: [facility] 04-16-2022 influenza virus vacc ine, unspecified formulation Topher SAAVEDRA [facility] 04-16-2022 Influenza, Seasonal, Quadrivalent, Adjuvanted Brody Ibrahim DPM Work Phone: [facility] 03-23-2022 Moderna Bivalent Simmons ster Vaccination Brody Ibrahim DPM Work Phone: [facility] 03-23-2022 Moderna SARS-CoV-2 50mcg/0.5mL Booster Brody Ibrahim DPM Work Phone: [facility] 03-23-[address] 12 Years And Older Brody Ibrahim DPM Work Phone: [facility] 03-23-2022 SARS-CoV-2 (COVID-19 ) [id number] Topher SAAVEDRA [facility] 06-18-2021 SARS-CoV-2 (COVID-19 ) mRNA BNT-162b2 vax Topher SAAVEDRA [facility] 05-06-2021 influenza virus vacc ine, unspecified formulation Topher SAAVEDRA [facility] 05-06-2021 Influenza, Seasonal, Quadrivalent, Adjuvanted Brody Ibrahim DPM Work Phone: [facility] 05-06-2021 SARS-CoV-2 (COVID-19 ) Ad26 vaccine, recombinant Topher SAAVEDRA [facility] 08-28-2020 SARS-CoV-2 (COVID-19 ) mRNA BNT-162b2 vax Topher SAAVEDRA [facility] 08-28-2020 SARS-CoV-2, Unspecified Garry Ibrahim DPM Work Phone: [facility] 08-27-2020 Pfizer Purple Cap SARS-CoV-2 Vaccination Brody Ibrahim DPM Work Phone: [facility] 08-08-2020 SARS-CoV-2 (COVID-19 ) mRNA BNT-162b2 vax Topher SAAVEDRA [facility] Comment on above: Result Comment: 2022: [id number] 08-08-2020 SARS-CoV-2, Unspecified Garry garrick Ibrahim DPM Work Phone: [facility] 08-07-2020 Pfizer Purple Cap SARS-CoV-2 Vaccination Brody Ibrahim DPM Work Phone: [facility] 08-04-2020 SARS-CoV-2 (COVID-19 ) Ad26 vaccine, recombinant Topher ASAVEDRA [facility] 03-22-2020 influenza virus vacc ine, unspecified formulation Topher SAAVEDRA [facility] 03-22-2020 Influenza, Seasonal, Quadrivalent, Adjuvanted Brody Ibrahim DPM Work Phone: [facility] 03-06-2019 pneumococcal conjuga te vaccine, 13 valent Topher SAAVEDRA [facility] 03-05-2019 influenza virus vacc ine, unspecified formulation Topher SAAVEDRA [facility] 03-05-2019 influenza, high dose seasonal, preservative-free Brody Ibrahim DPM Work Phone: [facility] 03-05-2019 pneumococcal polysaccharide vaccine, 23 valent Topher SAAVEDRA [facility] 03-04-2019 Influenza, High-dose Seasonal, Quadrivalent, Preservative Free Brody Ibrahim DPM Work Phone: [facility] 03-04-2019 pneumococcal polysaccharide vaccine, 23 valent Brody Ibrahim DPM Work Phone: [facility] 03-03-2018 influenza virus vacc ine, unspecified formulation Topher SAAVEDRA [facility] 03-03-2018 influenza, high dose seasonal, preservative-free Brody Ibrahim DPM Work Phone: [facility] 03-03-2018 pneumococcal conjuga te vaccine, 13 valent Topher SAAVEDRA [facility] 03-03-2018 pneumococcal polysaccharide vaccine, 23 valent Brody Ibrahim DPM Work Phone: [facility] 03-02-2018 pneumococcal conjuga te vaccine, 13 valent Brody Ibrahim DPM Work Phone: [facility] 04-06-2017 influenza virus vacc ine, unspecified formulation Topher SAAVEDRA [facility] 04-06-2017 influenza, injectabl e, quadrivalent, preservative free Brody Ibrahim DPM Work Phone: [facility] 12-04-2016 pneumococcal polysaccharide vaccine, 23 valent Topher SAAVEDRA [facility] 12-04-2016 zoster vaccine, live Topher SAAVEDRA [facility] 03-06-2016 Influenza Vaccine, unspecified formulation Mthz Schedule [facility] 03-06-2016 influenza virus vacc ine, H5N1, A/[place]/ (national stockpile) Brody Ibrahim DPM Work Phone: [facility] 03-06-2016 influenza virus vacc ine, unspecified formulation Brody Ibrahim DPM Work Phone: [facility] 03-06-2016 Influenza, High-dose Seasonal, Quadrivalent, Preservative Free Brody Alexandria DPM Work Phone: [facility] 03-06-2016 influenza, unspecifi ed formulation Topher SAAVEDRA [facility] 01-23-2016 influenza virus vacc ine, unspecified formulation Topherpeter SAAVEDRA [facility] 01-23-2016 influenza, injectabl e, quadrivalent, preservative free Brody Alexandria DPM Work Phone: [facility] 06-06-2015 pneumococcal polysaccharide vaccine, 23 valent Topherpeter SAAVEDRA [facility] 03-23-2014 influenza virus vacc ine, unspecified formulation Topherpeter SAAVEDRA [facility] 03-23-2014 influenza, seasonal, injectable Brody Rusher DPM Work Phone: [facility] 04-06-2013 influenza virus vacc ine, unspecified formulation Topher SAAVEDRA [facility] 04-06-2013 influenza, seasonal, injectable Brody Hectorher DPM Work Phone: [facility] 04-06-2013 zoster vaccine, live Topher SAAVEDRA [facility] 04-05-2013 zoster vaccine, live Brody Rusher DPM Work Phone: [facility] 04-21-2009 novel influenza-H1N1 -09, preservative-free, injectable Brody Rusher DPM Work Phone: [facility] Payers Date Payer Category Payer Private Health Insurance [employer] mber [id number] 2022 Unknown 2017 Medicare [id number] 2017 Medicare xxxxxxxxxxx [id number] 1959 Medicare [id number] .[id number] 1959 Private Health Insurance [facility] [id number] .7.3.081980.315 1952 Unknown [id number] 2.16.840.1.786162.3.579.2 .593 1952 Unknown [id number] 2.16.840.1.859909.3.579.2 .593 1952 Unknown [id number] 2.16.840.1.363242.3.579.2 .59 1952 Unknown [id number] 2.16.840.1.985263.3.579.2 .593 1952 Unknown [id number] 2.16.840.1.549204.3.579.2 .593 1952 Unknown [id number] 2.16.840.1.150971.3.579.2 .593 1952 Unknown [id number] 2.16.840.1.804825.3.579.2 .593 1952 Unknown [id number] 2.16.840.1.484021.3.579.2 .593 1952 Unknown [id number] 2.16.840.1.965153.3.579.2 .593 1952 Unknown [id number] 2.16.840.1.201598.3.579.2 .593 1952 Unknown [id number] 2.16.840.1.749654.3.579.2 .593 1952 Unknown [id number] 2.16.840.1.455562.3.579.2 .593 1952 Unknown [id number] 2.16.840.1.493063.3.579.2 .125 1952 Unknown [id number] 2.840.1.866272.3.579.2 .125 1952 Unknown [id number] 2.16.840.1.229523.3.579.2 .125 1952 Unknown [id number] 2.16.840.1.195250.3.579.2 .125 1952 Unknown [id number] 2.16.840.1.194187.3.579.2 .1259 1952 Unknown [id number] 2.16840.1.274197.3.579.2 .125 1952 Unknown [id number] 2.16.840.1.623182.3.579.2 .125 1952 Unknown [id number] 2.16.840.1.412808.3.579.2 .125 1952 Unknown [id number] 2.16.840.1.235380.3.579.2 .125 1952 Unknown [id number] 2.16.840.1.976964.3.579.2 .125 1952 Unknown [id number] 2.16.840.1.032289.3.579.2 .1259 1952 Unknown [id number] 2.16.840.1.532918.3.579.2 .1952 Unknown [id number] 2.16.840.1.532718.3.579.2 .1952 Unknown [id number] 2.16.840.1.437500.3.579.2 .1952 Unknown [id number] 2.16.840.1.405042.3.579.2 1952 Unknown [id number] 2.16.840.1.898331.3.579.2 1952 Unknown [id number] 2.16.840.1.821639.3.579.2 1952 Unknown [id number] 2.16.840.1.867372.3.579.2 1952 Unknown [id number] 2.16.840.1.107318.3.579.2 1952 Unknown [id number] 2.16.840.1.214966.3.579.2 1952 Unknown [id number] 2.16.840.1.456931.3.579.2 1952 Unknown [id number] 2.16.840.1.165483.3.579.2 1952 Unknown [id number] 2.16.840.1.501534.3.579.2 1952 Unknown [id number] 2.16.840.1.229390.3.579.2 1952 Unknown [id number] 2.16.840.1.493687.3.579.2 1952 Unknown [id number] 2.16.840.1.307388.3.579.2 .727 1952 Unknown [id number] 2.16.840.1.402085.3.579.2 .173 1952 Unknown [id number] 2.16.840.1.688517.3.579.2 .173 1952 Unknown [id number] 2.16.840.1.567925.3.579.2 .173 Medicare [id number] Social History Date Type Detail Facility Start: 10-18-2018 End: 11-02-2023 Tobacco smoking status NHIS Former sm[place] Start: 08-31-1979 End: 06-06-2012 History of tobacco use Current smoker [place] Start: 10-18-2018 End: 11-02-2023 Cigarettes smoked current (pack per day) - Reported [facility] Start: 10-18-2018 End: 11-02-2023 Alcohol intake No [place] Start: 01-23-2014 End: 11-02-2023 Tobacco Comment quit smoking in 1999 [facility] Start: 1950 Sex Assigned At Not on file [place] Start: 10-18-2018 End: 11-02-2023 Alcohol intake Current non-drinker of alcohol (finding) [place] Start: 10-22-2020 End: 11-02-2023 Tobacco use and exposure Never used [facility] Start: 01-18-2022 End: 01-28-2022 Exposure to SARS-CoV-2 (event) Not sure [facility] Start: 08-31-1979 End: 06-06-2012 History of tobacco use Cigarette Smoker KITTY QUIROZ [facility] Work Phone: Start: 05-17-2023 End: 05-15-2024 Alcohol [...] Gender identity Identifies as male gender (finding) [facility] Functional Status Date Assessment Result Facility 05-21-2024 Functional Status N/A [facility] 12-05-2023 Functional Status N/A [facility] 06-20-2023 Functional Status N/A [facility] 11-05-2022 Functional Status N/A [facility] 06-18-2022 Functional Status N/A [facility] 05-17-2022 Functional Status N/A [facility] 02-01-2022 Functional Status N/A [facility] [facility] Clinical Notes 10-22-2020 to 07-05-2024 Luh Hoffman RN - 07/05/2024 1:00 PM ESTTelephone Encounter - Jordan Duncan MD - 06/18/2024 7:50 AM ESTTelephone Encounter - Jordan Duncan MD - 06/18/2024 7:50 AM ESTPatient Instructions Note Date & Type Note Facility 07-05-2024 History of Present illness Narrative Pt arrived for scheduled phlebotomy. 1322 Right arm accessed with 16G closed bag system. Immediate blood flow noted. Reminded patient to alert nurse if having any lightheadedness or dizziness. Pt verbalized understanding. Encouraged pt to drink water throughout procedure. 1328 500 ml of blood collected. Pt tolerated procedure well. Continues to drink water. Denies any dizziness at this time. Reminded pt to continue to drink water and rehydrate for the rest of the day. If having any dizziness to rest until feeling better. 1348 Pt discharged ambulatory at this time. Resp easy. Denies any dizziness. documented in this encounter [facility] 06-18-2024 Telephone encounter Note Prescription sent [facility] 06-18-2024 Miscellaneous Notes Prescription sent Bret left a message requesting a refill on his Famotidine to [facility] in [place]. documented in this encounter [facility] 06-18-2024 Telephone encounter Note Bret left a message requesting a refill on his Famotidine to [facility] in [place]. [facility] 06-08-2024 Note Application for [employer] filled out for patient. Requires patient signature. Will notify Cardiology production support specialist to coordinate signature by patient. Application uploaded to media. Patient will come to Cardiology clinic to sign. Iron Sherwood PharmD Cardiology Outpatient Clinical Pharmacist 06/14/24 [facility] 06-08-2024 Note Contacted patient to discuss lipids management. Reviewed mechanism of action, side effects, and administration of Repatha with patient; pt agreeable to start. Will send RX to assess costs. Of note, pt may qualify for patient assistance [employer]. Will fill out paperwork and send to Cardiology to assist in obtaining signature and income documents. Iron Sherwood PharmD Cardiology Outpatient Clinical Pharmacist 06/11/24 [facility] 06-08-2024 [facility] Provider: Dr. Huddleston Department: Cardiology Juan Miguel Jennings is a 74 y.o. male with PMH of CAD s/p SD and stents, HTN, HLD, MO w/ CPAP, rectal CA s/p chemo and radiation, T2DM. Current Lipid Lowering Therapy Repatha 140mg subcutanouesly every 2 weeks? - verify filling history Losartan 50mg daily Metoprolol tartrate 100mg BID Previous Lipid Lowering Therapy Pravastatin Rosuvastatin Ezetimibe Other Relevant Cardiology Medications Amlodipine 5mg daily ASA 81mg daily Isosorbide mononitrate ER 30mg daily Losartan 50mg daily Metoprolol tartrate 100mg BID Statin intolerant?: yes Pertinent labs: Lipid panel: FLP: 04/13/2023 Chol 161, HDL 33, trig 148, LDL 103 LDL goal < 55 mg/dL Patient indicated for lipids management; did not tolerate pravastatin, rosuvastatin, and ezetimibe. Previous Rx sent for Repatha; no recent fill history. Will verify with patient. Patient will need updated lipid panel. Follow-up: To be scheduled Iron Sherwood PharmD Cardiology Outpatient Clinical Pharmacist 06/11/24 [facility] 05-21-2024 Hospital Discharge instructions Patient Education 05/21/2024 12:15:54 Overactive Bladder, Adult Overactive Bladder, Adult Overactive bladder is a condition in which a person has a sudden and frequent need to urinate. A person might also leak urine if he or she cannot get to the bathroom fast enough (urinary incontinence). Sometimes, symptoms can interfere with work or social activities. What are the causes? Overactive bladder is associated with poor nerve signals between your bladder and your brain. Your bladder may get the signal to empty before it is full. You may also have very sensitive muscles that make your bladder squeeze too soon. This condition may also be caused by other factors, such as: Medical conditions: ?Urinary tract infection. ?Infection of nearby tissues. ?Prostate enlargement. ?Bladder stones, inflammation, or tumors. ?Diabetes. ?Muscle or nerve weakness, especially from these conditions: ?A spinal cord injury. ?Stroke. ?Multiple sclerosis. ?Parkinson's disease. Other causes: ?Surgery on the uterus or urethra. ?Drinking too much caffeine or alcohol. ?Certain medicines, especially those that eliminate extra fluid in the body (diuretics). ?Constipation. What increases the risk? You may be at greater risk for overactive bladder if you: Are an older adult. Smoke. Are going through menopause. Have prostate problems. Have a neurological disease, such as stroke, dementia, Parkinson's disease, or multiple sclerosis (MS). Eat or drink alcohol, spicy food, caffeine, and other things that irritate the bladder. Are overweight or obese. What are the signs or symptoms? Symptoms of this condition include a sudden, strong urge to urinate. Other symptoms include: Leaking urine. Urinating 8 or more times a day. Waking up to urinate 2 or more times overnight. How is this diagnosed? This condition may be diagnosed based on: Your symptoms and medical history. A physical exam. Blood or urine tests to check for possible causes, such as infection. You may also need to see a health care provider who specializes in urinary tract problems. This is called a urologist. How is this treated? Treatment for overactive bladder depends on the cause of your condition and whether it is mild or severe. Treatment may include: Bladder training, such as: ?Learning to control the urge to urinate by following a schedule to urinate at regular intervals. ?Doing Kegel exercises to strengthen the pelvic floor muscles that support your bladder. Special devices, such as: ?Biofeedback. This uses sensors to help you become aware of your body's signals. ?Electrical stimulation. This uses electrodes placed inside the body (implanted) or outside the body. These electrodes send gentle pulses of electricity to strengthen the nerves or muscles that control the bladder. ?Women may use a plastic device, called a pessary, that fits into the vagina and supports the bladder. Medicines, such as: ?Antibiotics to treat bladder infection. ?Antispasmodics to stop the bladder from releasing urine at the wrong time. ?Tricyclic antidepressants to relax bladder muscles. ?Injections of botulinum toxin type A directly into the bladder tissue to relax bladder muscles. Surgery, such as: ?A device may be implanted to help manage the nerve signals that control urination. ?An electrode may be implanted to stimulate electrical signals in the bladder. ?A procedure may be done to change the shape of the bladder. This is done only in very severe cases. Follow these instructions at home: Eating and drinking Make diet or lifestyle changes recommended by your health care provider. These may include: ?Drinking fluids throughout the day and not only with meals. ?Cutting down on caffeine or alcohol. ?Eating a healthy and balanced diet to prevent constipation. This may include: ?Choosing foods that are high in fiber, such as beans, whole grains, and fresh fruits and vegetables. ?Limiting foods that are high in fat and processed sugars, such as fried and sweet foods. Lifestyle Lose weight if needed. Do not use any products that contain nicotine or tobacco. These include cigarettes, chewing tobacco, and vaping devices, such as e-cigarettes. If you need help quitting, ask your health care provider. General instructions Take abwl-tha-frzxupw and prescription medicines only as told by your health care provider. If you were prescribed an antibiotic medicine, take it as told by your health care provider. Do not stop taking the antibiotic even if you start to feel better. Use any implants or pessary as told by your health care provider. If needed, wear pads to absorb urine leakage. Keep a log to track how much and when you drink, and when you need to urinate. This will help your health care provider monitor your condition. Keep all follow-up visits. This is important. Contact a health care provider if: You have a fever or chills. Your symptoms do not get better with treatment. Your pain and discomfort get worse. You have more frequent urges to urinate. Get help right away if: You are not able to control your bladder. Summary Overactive bladder refers to a condition in which a person has a sudden and frequent need to urinate. Several conditions may lead to an overactive bladder. Treatment for overactive bladder depends on the cause and severity of your condition. Making lifestyle changes, doing Kegel exercises, keeping a log, and taking medicines can help with this condition. This information is not intended to replace advice given to you by your health care provider. Make sure you discuss any questions you have with your health care provider. Document Revised: 02/09/2021 Document Reviewed: 02/09/2021 Yellow Pages Patient Education 2023 TURN8. Follow Up Care 02/27/2024 09:12:26 With:KERI NOLASCO, Topher Ordoñez, URL Address: [facility] [address], [place] [address]- When: Unknown [facility] 05-21-2024 Evaluation + Plan note Diagnostic Tests PendingTestosterone Level Total 05/21/24CBC w/ Auto Diff 05/21/24 [facility] 05-21-2024 Note Patient Education Obstetrics and Gynecology Overactive Bladder, Adult Overactive bladder is a condition in which a person has a sudden and frequent need to urinate. A person might also leak urine if he or she cannot get to the bathroom fast enough (urinary incontinence). Sometimes, symptoms can interfere with work or social activities. What are the causes? Overactive bladder is associated with poor nerve signals between your bladder and your brain. Your bladder may get the signal to empty before it is full. You may also have very sensitive muscles that make your bladder squeeze too soon. This condition may also be caused by other factors, such as: ??? Medical conditions: ? Urinary tract infection. ? Infection of nearby tissues. ? Prostate enlargement. ? Bladder stones, inflammation, or tumors. ? Diabetes. ? Muscle or nerve weakness, especially from these conditions: ? A spinal cord injury. ? Stroke. ? Multiple sclerosis. ? Parkinson's disease. ??? Other causes: ? Surgery on the uterus or urethra. ? Drinking too much caffeine or alcohol. ? Certain medicines, especially those that eliminate extra fluid in the body (diuretics). ? Constipation. What increases the risk? You may be at greater risk for overactive bladder if you: ??? Are an older adult. ??? Smoke. ??? Are going through menopause. ??? Have prostate problems. ??? Have a neurological disease, such as stroke, dementia, Parkinson's disease, or multiple sclerosis (MS). ??? Eat or drink alcohol, spicy food, caffeine, and other things that irritate the bladder. ??? Are overweight or obese. What are the signs or symptoms? Symptoms of this condition include a sudden, strong urge to urinate. Other symptoms include: ??? Leaking urine. ??? Urinating 8 or more times a day. ??? Waking up to urinate 2 or more times overnight. How is this diagnosed? This condition may be diagnosed based on: ??? Your symptoms and medical history. ??? A physical exam. ??? Blood or urine tests to check for possible causes, such as infection. You may also need to see a health care provider who specializes in urinary tract problems. This is called a urologist. How is this treated? Treatment for overactive bladder depends on the cause of your condition and whether it is mild or severe. Treatment may include: ??? Bladder training, such as: ? Learning to control the urge to urinate by following a schedule to urinate at regular intervals. ? Doing Kegel exercises to strengthen the pelvic floor muscles that support your bladder. ??? Special devices, such as: ? Biofeedback. This uses sensors to help you become aware of your body's signals. ? Electrical stimulation. This uses electrodes placed inside the body (implanted) or outside the body. These electrodes send gentle pulses of electricity to strengthen the nerves or muscles that control the bladder. ? Women may use a plastic device, called a pessary, that fits into the vagina and supports the bladder. ??? Medicines, such as: ? Antibiotics to treat bladder infection. ? Antispasmodics to stop the bladder from releasing urine at the wrong time. ? Tricyclic antidepressants to relax bladder muscles. ? Injections of botulinum toxin type A directly into the bladder tissue to relax bladder muscles. ??? Surgery, such as: ? A device may be implanted to help manage the nerve signals that control urination. ? An electrode may be implanted to stimulate electrical signals in the bladder. ? A procedure may be done to change the shape of the bladder. This is done only in very severe cases. Follow these instructions at home: Eating and drinking ??? Make diet or lifestyle changes recommended by your health care provider. These may include: ? Drinking fluids throughout the day and not only with meals. ? Cutting down on caffeine or alcohol. ? Eating a healthy and balanced diet to prevent constipation. This may include: ? Choosing foods that are high in fiber, such as beans, whole grains, and fresh fruits and vegetables. ? Limiting foods that are high in fat and processed sugars, such as fried and sweet foods. Lifestyle ??? Lose weight if needed. ??? Do not use any products that contain nicotine or tobacco. These include cigarettes, chewing tobacco, and vaping devices, such as e-cigarettes. If you need help quitting, ask your health care provider. General instructions ??? Take xbpf-clm-zyfrcfp and prescription medicines only as told by your health care provider. ??? If you were prescribed an antibiotic medicine, take it as told by your health care provider. Do not stop taking the antibiotic even if you start to feel better. ??? Use any implants or pessary as told by your health care provider. ??? If needed, wear pads to absorb urine leakage. ??? Keep a log to track how much and when you drink, and whe (more content not included)... [facility] 05-15-2024 History of Present illness Narrative Images from the original note were not included. Subjective Patient ID: Juan Miguel Jennings is a 74 y.o. male who presents for Diabetic shoe check (Juan Miguel Jennings is a 74 y.o. male who presents diabetic shoe check. PCP: Dr. Dakota YARBROUGH 03/27/24, A1C: 6.4 (5), BS: 132 SS: 14.). HPI Three-week initial [...] 2010 Geraldo Raza CATARACT EXTRACTION Left 2019 [facility] OTHER SURGICAL HISTORY 03/2017 lesions on bottom of both feet, [facility] OTHER SURGICAL HISTORY 4 stents Geraldo Stafford - 1997 OTHER SURGICAL HISTORY rectal cancer; surgery, chemo [place] and radiation [place]. OTHER SURGICAL HISTORY 09/30/2022 Dorsal Slit, RADHA Saavedra TOTAL KNEE ARTHROPLASTY Right 2014 Alexsander Brennan [...] Brody Ibrahim DPM documented in this encounter [facility] 05-15-2024 Instructions Brody Ibrahim DPM - 05/15/2024 10:15 AM EST As noted documented in this encounter [facility] 05-02-2024 Note Patient here for 1 [...] All other systems reviewed and are negative. [facility] 05-02-2024 Note Cardiovascular Medic [facility] SUBJECTIVE Chief Complaint Patient presents with Coronary Artery Disease Hypertension Juan Miguel Jennings is a 74 y.o. male here for follow-up. HPI PMHx: CAD s/p SD and stenting, HTN, HLD, MO and wears CPAP, rectal CA s/p chemo and radiation, DM II Patient here for 1 year follow up CAD and hypertension. Lipid panel has not been drawn since last visit. Denies chest pain and SOB. C/o feeling gassy and said PCP gave him Pepcid, which helps. Denies palpitations and lightheadedness, but c/o fatigue. Had Covid-19 in October 2023 and says he had it pretty bad . He c/o worsened fatigued since last seen. Lack of energy. He gets some dizziness at times. Denies c/o orthopnea, PND, LE edema, palpitations, syncope. Patient Active Problem List Diagnosis Coronary arteriosclerosis [...] of colon cancer Testicular hypofunction Hx of half-way use of blood thinners Internal derangement of [...] Polycythemia Urinary urgency Urinary frequency Testosterone deficiency Foot callus Osteoarthritis of knee Presence of both artificial knee joints Type 2 diabetes mellitus with neurologic complication (CMS/HCC) Past Medical History: Diagnosis Date Coronary artery disease Diabetes mellitus (CMS/HCC) Hyperlipidemia Hypertension Sleep apnea Family History Problem Relation Name Age of Onset Heart disease Mother Heart disease Father Social History Tobacco Use Smoking status: Every Day Types: Cigarettes Substance Use Topics Alcohol use: Yes Comment: occasional Drug use: Never Allergies Allergen Reactions Clindamycin Glipizide Other Metformin Other Pravastatin Other Rosuvastatin Other Zetia [Ezetimibe] Other Review of Systems Constitutional: Positive for malaise/fatigue. Negative for chills, decreased appetite, fever and weight gain. Cardiovascular: Negative for chest pain, dyspnea on exertion, irregular heartbeat, leg swelling, near-syncope, orthopnea, palpitations, paroxysmal nocturnal dyspnea and syncope. Hematologic/Lymphatic: Negative for bleeding problem. Does not bruise/bleed easily. OBJECTIVE Visit Vitals BP 142/90 (BP Location: Left arm, Patient Position: Sitting) Pulse 74 Ht 1.981 m (6' 6 ) Wt (!) 159 kg (350 lb) SpO2 95% BMI 40.45 kg/m??? Smoking Status Every Day BSA 2.96 m??? Medications: Current Outpatient Medications: aspirin 81 mg EC tablet, Take 1 tablet every day by oral route., Disp: , Rfl: cholecalciferol (Vitamin D-3) 25 MCG (1000 UT) capsule, Take 3 capsules every day by oral route., Disp: , Rfl: diclofenac (Voltaren) 75 mg EC tablet, if needed., Disp: , Rfl: famotidine (Pepcid) 20 mg tablet, Take 20 mg by mouth twice a day., Disp: , Rfl: losartan (Cozaar) 50 mg tablet, Take 50 mg by mouth in the morning., Disp: , Rfl: metoprolol tartrate (Lopressor) 100 mg tablet, Take 100 mg in am and 50 mg in pm every day, Disp: 135 tablet, Rfl: 3 niacin 500 mg tablet, Take 1 tablet by mouth once daily as directed., Disp: , Rfl: oxybutynin XL (Ditropan-XL) 5 mg 24 hr tablet, Take 1 tablet by mouth in the morning., Disp: , Rfl: pioglitazone (Actos) 30 mg tablet, Take 30 mg by mouth in the morning., Disp: , Rfl: tamsulosin (Flomax) 0.4 mg 24 hr capsule, Take 0.4 mg by mouth twice a day., Disp: , Rfl: testosterone cypionate (Depo-Testosterone) 200 mg/mL injection, INJECT 400MG INTRAMUSCULARLY EVERY 4 WEEKS, Disp: , Rfl: evolocumab (Repatha SureClick) 140 mg/mL pen injector, Inject 1 Pen under the skin every 14 (fourteen) days. (Patient not taking: Reported on 05/02/2024), Disp: 6 mL, Rfl: 3 gabapentin (Neurontin) 300 mg capsule, Take 300 mg by mouth twice a day., Disp: , Rfl: Physical Exa (more content not included)... [facility] 04-23-2024 History of Present illness Narrative Images from the original note were not included. Subjective Patient ID: Juan Miguel Jennings is a 74 y.o. 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 male who presents for Foot Callouses. PCP: Dr. Dakota YARBROUGH 03/27/24, A1C: 6.4 (5/), BS: 132 SS: 14. ). HPI Presents [...] Brody Ibrahim DPM documented in this encounter [facility] 04-23-2024 Instructions Brody Ibrahim DPM - 04/23/2024 11:00 AM EST Instructions as noted documented in this encounter [facility] 04-09-2024 Telephone encounter Note Custom orthotics arrived droana Gruber [facility] 04-09-2024 Miscellaneous Notes Custom orthotics arrived drom Dr Gruber documented in this encounter [facility] 03-29-2024 History of Present illness Narrative [...] OTHER SURGICAL HISTORY 09/30/2022 Dorsal Slit, RADHA Saavedra TOTAL KNEE ARTHROPLASTY Right 2014 Alexsander Brennan TOTAL KNEE ARTHROPLASTY Left 05/25/[address] STEPANIC Family History Family History Problem Relation Name [...] Measurements obtained in the weight-bearing position utilizing WISHI device. Foam impressions obtained simulated weight-bearing. Patient [...] Brody Ibrahim DPM documented in this encounter [facility] 03-29-2024 Instructions Brody Ibrahim DPM - 03/29/2024 1:00 PM EDT As noted documented in this encounter [facility] 03-27-2024 History of Present illness Narrative [...] with Hgb A1C. Also this is a fuip-sw-upti visit for consideration for diabetic shoes. Patient [...] polyneuropathy, without long-term current use of insulin ([facility]) (Primary) Chronic problem, stable, to goal. Patient has multiple podiatric issues. The forms from Podiatry were reviewed. Patient's feet were examined. I concur with the forms from Podiatry. Diabetic shoes are medically indicated. I certify that I had a [id number] encounter with this patient at todays office visit. Due to this medical condition the patient requires DME. I certify that based on my findings The DME ordered is medically necessary for this patient. This has been discussed with the patient and/or their surgical device sales representative and mutually agreed upon. See [...] microalbuminuria, without long-term current use of insulin ([facility]) Chronic problem, stable, to goal. 9. [...] stratification for cardiovascular disease. 10. Essential hypertension ([facility]) In prescribing a renewal to their [...] - Comprehensive metabolic panel 11. Mixed hyperlipidemia (CMS/HCC) - Lipid panel; Future - Lipid panel 12. Adverse reaction to statin medication Diagnosis for exclusion for HEDIS measures for both diabetes with statin and mixed dyslipidemia with statin. 13. Former smoker Continue nonsmoking 14. Morbid obesity (CMS/HCC) Continue lifestyle changes as able documented in this encounter [facility] 03-13-2024 History of Present illness Narrative [...] Procedure Laterality Date BACK SURGERY 2010 Bioni, Chow CATARACT EXTRACTION Left 2019 [facility] OTHER SURGICAL HISTORY 03/2017 lesions on bottom of both feet, [place] OTHER SURGICAL HISTORY 4 stents Kabor, Chow - 1997 OTHER SURGICAL HISTORY rectal cancer; surgery, chemo [place] and radiation [place]. OTHER SURGICAL HISTORY 09/30/2022 Dorsal Slit, RADHA Saavedra TOTAL KNEE ARTHROPLASTY Right 2014 Alexsander Brennan [...] Brody Ibrahim DPM documented in this encounter [facility] 03-13-2024 Instructions Brody Ibrahim DPM - 03/13/2024 9:45 AM EDT As noted documented in this encounter [facility] 12-05-2023 Hospital Discharge instructions Patient Education [...] therapy. Follow these instructions at home: Take acfr-bpp-rqxsooq and prescription medicines only as told by [...] provider. Document Revised: 01/22/2021 Document Reviewed: 01/22/2021 Yellow Pages Patient Education 2022 TURN8. Follow Up Care 12/05/2023 07:35:26 With:KERI NOLASCO, Topher Ordoñez, URL Address: [facility] [address] [place] [address] [phone] When: Unknown [facility] 12-05-2023 Note Patient Education Urology [...] Follow these instructions at home: ? Take jani-ayl-fikxvgq and prescription medicines only as told by [...] provider. Document Revised: (more content not included)... [facility] 11-07-2023 Hospital Discharge instructions Follow Up Care 11/07/2023 08:41:09 With:KERI NOLASCO, Topher Ordoñez, URL Address: [facility] [address] , [place] [address]- [phone] When: Unknown [facility] 07-19-2023 History of Present illness Narrative Images from the original note were not included. Subjective Patient ID: Juan Miguel Jennings is a 73 y.o. male who presents for Nail care (Juan Miguel Jennings is a 73 y.o. male who presents for Nail care and discuss inserts. Pt relates recently saw Dr Hargrove right foot ulcer, which has improved. Dr. [...] May 2023; effectively healed following treatment at [facility] wound Center. Currently relates no bleeding [...] radiation [place]. OTHER SURGICAL HISTORY 09/30/2022 Dorsal Natasha, Saavedra, [facility] TOTAL KNEE ARTHROPLASTY Right 2014 Alexsander [...] with wound right foot; effectively managed at [facility] wound care center. Care plan: conservative and [...] Brody Ibrahim DPM documented in this encounter [facility] 07-19-2023 Instructions Brody Ibrahim DPM - 07/19/2023 10:30 AM EST As noted documented in this encounter [facility] 06-20-2023 Hospital Discharge instructions Patient Education [...] therapy. Follow these instructions at home: Take jcwq-kmw-eyzrfho and prescription medicines only as told by [...] provider. Document Revised: 01/22/2021 Document Reviewed: 01/22/2021 Yellow Pages Patient Education 2022 TURN8. Follow Up Care 02/08/2023 12:23:35 With:KERI NOLASCO, Topher Ordoñez, URL Address: [facility] [address] , [place] [address] [phone] When: Unknown Comments:6 mos w/ PSA and T level (pt to also get PSA now) [facility] 11-05-2022 Hospital Discharge instructions Patient [...] urethra. Follow these instructions at home: Take gdtc-nfx-avfrhsz and prescription medicines only as told by [...] provider. Document Revised: 12/09/2021 Document Reviewed: 12/09/2021 Yellow Pages Patient Education 2022 TURN8. Follow Up Care 05/17/2022 10:46:35 With:KERI NOLASCO, Topher Ordoñez, URL Address: [facility] [address] , [place] [address]- When: Unknown [facility] 11-03-2022 History of Present illness Narrative [...] for visit documented in this encounter [facility] Work Phone: 09-15-2022 Note EXAM: XR CHEST 2 V HISTORY: Pre-surgery evaluation COMPARISON: None. TECHNIQUE: PA and lateral views of the chest. FINDINGS: The cardiomediastinal silhouette is normal. No focal consolidation is identified. There is no pneumothorax. No pleural effusion is noted. The osseous structures are intact. IMPRESSION: No acute cardiopulmonary process. Electronically authenticated by: DARRIUS BOLTON Date: 2022-09-15 12:26 [facility] 06-18-2022 Hospital Discharge instructions Patient Education 06/18/2022 [...] urethra. Follow these instructions at home: Take ewrr-cab-cohaxnq and prescription medicines only as told by [...] 05/23/2006 Document Revised: 04/17/2019 Document Reviewed: 06/27/2017 Yellow Pages Patient Education 2020 TURN8. Follow Up Care 06/14/2022 09:33:13 With:KERI NOLASCO, Topher Ordoñez, URL Address: [address] [place], [place] [id number]- When: Unknown [facility] 05-17-2022 Hospital Discharge instructions Patient Education [...] urethra. Follow these instructions at home: Take wjwd-dqb-aqegtul and prescription medicines only as told by [...] 05/23/2006 Document Revised: 04/17/2019 Document Reviewed: 06/27/2017 Yellow Pages Patient Education 2020 TURN8. Follow Up Care 04/21/2022 09:42:50 With:KERI NOLASCO, Topher Ordoñez, URL Address: [facility] [address], [place] [address]- When: Unknown [facility] 03-23-2022 Note PROCEDURE: XR FOOT R [...] authenticated by: BRODY PAYAN Date: 2022-03-23 06:26 [facility] 02-01-2022 Hospital Discharge instructions Patient Education 02/01/2022 [...] urethra. Follow these instructions at home: Take jfsh-som-xgwjdol and prescription medicines only as told by [...] 05/23/2006 Document Revised: 04/17/2019 Document Reviewed: 06/27/2017 Yellow Pages Patient Education 2020 TURN8. Follow Up Care 08/03/2021 15:20:11 With:KERI NOLASCO, Topher Ordoñez, URL Address: [address] [place] [address]- When: Unknown [facility] 10-22-2020 History of Present illness Narrative [...] ambulating without complaints documented in this encounter [employer] Work Phone: Evaluation + Plan note Future Appointments Appointment Date:09/28/2021 09:00:00 AM Scheduled Provider: Location:[facility] Appointment Type:URO Nurse Visit Appointment Date:02/01/2022 09:45:00 AM Scheduled Provider:Topher SAAVEDRA MD Location:[facility] Appointment Type:URO Office Visit [facility] Evaluation + Plan note Future Appointments Appointment Date:10/26/2021 09:00:00 AM Scheduled Provider: Location:[facility] Appointment Type:URO Nurse Visit Appointment Date:02/01/2022 09:45:00 AM Scheduled Provider:Topher SAAVEDRA MD Location:[facility] Appointment Type:URO Office Visit [facility] Evaluation + Plan note Future Appointments Appointment Date:11/23/2021 09:00:00 AM Scheduled Provider: Location:[facility] Appointment Type:URO Nurse Visit Appointment Date:02/01/2022 09:45:00 AM Scheduled Provider:Topher SAAVEDRA MD Location:[facility] Appointment Type:URO Office Visit [facility] [employer] Evaluation + Plan note Future Appointments Appointment Date:12/21/2021 09:00:00 AM Scheduled Provider: Location:[facility] Appointment Type:URO Nurse Visit Appointment Date:02/01/2022 09:45:00 AM Scheduled Provider:Topher SAAVEDRA MD Location:[facility] Appointment Type:URO Office Visit [facility] [employer] Evaluation + Plan note Future Appointments Appointment Date:02/01/2022 09:45:00 AM Scheduled Provider:Topher SAAVEDRA MD [facility] Appointment Type:URO Office Visit Diagnostic Tests PendingTestosterone Level Total 12/21/21 [facility] Evaluation + Plan note Future Appointments Appointment Date:03/01/2022 09:30:00 AM Scheduled Provider: Location:[facility] Appointment Type:URO Nurse Visit Diagnostic Tests PendingTestosterone Level Total 04/06/22PSA Total 03/06/22 [facility] Evaluation + Plan note Future Appointments Appointment Date:03/31/2022 08:15:00 AM Scheduled Provider: Location:[facility] Appointment Type:URO Nurse Visit [facility] Evaluation + Plan note Future Appointments Appointment Date:04/21/2022 09:15:00 AM Scheduled Provider: Location:[facility] Appointment Type:URO Nurse Visit [facility] Evaluation + Plan note Future Appointments Appointment Date:05/19/2022 08:00:00 AM Scheduled Provider:Mandy Schaefer MD Location:[facility] Appointment Type:URO Office Visit Diagnostic Tests PendingPSA Total 04/16/22Testosterone Level Total 04/16/22 [facility] Evaluation + Plan note Future Appointments Appointment Date:06/14/2022 09:00:00 AM Scheduled Provider: Location:[facility] Appointment Type:URO Nurse Visit Appointment Date:11/15/2022 08:45:00 AM Scheduled Provider:Topher SAAVEDRA MD Location:[facility] Appointment Type:URO Office Visit Diagnostic Tests PendingPSA Total 05/17/22Testosterone Level Total 05/17/22 [facility] Evaluation + Plan note Future Appointments Appointment Date:09/06/2022 09:00:00 AM Scheduled Provider: Location:[facility] Appointment Type:URO Nurse Visit Appointment Date:11/15/2022 08:45:00 AM Scheduled Provider:Topher SAAVEDRA MD Location:[facility] Appointment Type:URO Office Visit [facility] Evaluation + Plan note Future Appointments Appointment Date:10/05/2022 09:00:00 AM Scheduled Provider: [facility] Appoint[facility] Type:URO Nurse Visit Appointment Date:10/29/2022 08:45:00 AM Scheduled Provider:Topher SAAVEDRA MD Location:[facility] Appointment Type:URO Office Visit Appointment Date:11/05/2022 09:45:00 AM Scheduled Provider:Topher SAAVEDRA MD Location:[facility] Appointment Type:URO Office Visit [facility] Evaluation + Plan note Future Appointments Appointment Date:11/05/2022 09:45:00 AM Scheduled Provider:Topher SAAVEDRA MD Location:[facility] Appointment Type:URO Office Visit [facility] Evaluation + Plan note Future Appointments Appointment Date:12/03/2022 09:15:00 AM Scheduled Provider: Location:[facility] Appointment Type:URO Nurse Visit Diagnostic Tests PendingTestosterone Level Total 11/05/22PSA Total 11/05/22 [facility] [employer] Evaluation + Plan note Future Appointments Appointment Date:01/03/2023 08:15:00 AM Scheduled Provider: Location:[facility] Appointment Type:URO Nurse Visit [facility] Evaluation + Plan note Future Appointments Appointment Date:01/31/2023 08:45:00 AM Scheduled Provider: Location:[facility] Appointment Type:URO Nurse Visit [facility] Evaluation + Plan note Future Appointments Appointment Date:03/07/2023 08:45:00 AM Scheduled Provider: Location:[facility] Appointment Type:URO Nurse Visit Appointment Date:04/04/2023 08:45:00 AM Scheduled Provider: Location:[facility] Appointment Type:URO Nurse Visit Appointment Date:05/02/2023 08:45:00 AM Scheduled Provider: Location:[facility] Appointment Type:URO Nurse Visit Appointment Date:05/27/2023 09:45:00 AM Scheduled Provider:Topher SAAVEDRA MD Location:[facility] Appointment Type:URO Office Visit [facility] Evaluation + Plan note Future Appointments Appointment Date:05/02/2023 08:45:00 AM Scheduled Provider: Location:[facility] Appointment Type:URO Nurse Visit Appointment Date:06/20/2023 10:30:00 AM Scheduled Provider:Topher SAAVEDRA MD Location:[facility] Appointment Type:URO Office Visit [facility] Evaluation + Plan note Future Appointments Appointment Date:06/20/2023 10:30:00 AM Scheduled Provider:Topher SAAVEDRA MD Location:[facility] Appointment Type:URO Office Visit Diagnostic Tests PendingTestosterone Level Total 05/09/23 [facility] Evaluation + Plan note Future Appointments Appointment Date:07/18/2023 09:30:00 AM Scheduled Provider: Location:[facility] Appointment Type:URO Nurse Visit Diagnostic Tests PendingPSA Total 06/20/23Testosterone Level Total 06/20/23 [facility] Evaluation + Plan note Future Appointments Appointment Date:08/15/2023 10:00:00 AM Scheduled Provider: Location:[facility] Appointment Type:URO Nurse Visit [facility] Evaluation + Plan note Future Appointments Appointment Date:09/09/2023 08:30:00 AM Scheduled Provider: Location:[facility] Appointment Type:URO Nurse Visit [facility] Evaluation + Plan note Future Appointments Appointment Date:10/07/2023 08:30:00 AM Scheduled Provider: Location:[facility] Appointment Type:URO Nurse Visit [facility] Evaluation + Plan note Future Appointments Appointment Date:11/07/2023 09:00:00 AM Scheduled Provider: Location:[facility] Appointment Type:URO Nurse Visit [facility] Evaluation + Plan note Future Appointments Appointment Date:12/05/2023 10:45:00 AM Scheduled Provider:Topher SAAVEDRA MD Location:[facility] Appointment Type:URO Office Visit [facility] Evaluation + Plan note Future Appointments Appointment Date:01/02/2024 09:00:00 AM Scheduled Provider: Location:[facility] Appointment Type:URO Nurse Visit Diagnostic Tests PendingTestosterone Level Total 12/05/23emoglobin 12/05/23 [facility] Evaluation + Plan note Future Appointments Appointment Date:01/02/2024 09:00:00 AM Scheduled Provider: Location:[facility] Appointment Type:URO Nurse Visit [facility] Evaluation + Plan note Future Appointments Appointment Date:02/27/2024 09:00:00 AM Scheduled Provider: Location:[facility] Appointment Type:URO Nurse Visit [facility] Evaluation + Plan note Future Appointments Appointment Date:03/27/2024 09:00:00 AM Scheduled Provider: Location:[facility] Appointment Type:URO Nurse Visit Appointment Date:04/23/2024 09:30:00 AM Scheduled Provider: [facility] Appointment Type:URO Nurse Visit Appointment Date:05/21/2024 10:45:00 AM Scheduled Provider:Topher SAAVEDRA MD Location:[facility] Appointment Type:URO Office Visit [facility] Evaluation + Plan note Future Appointments Appointment Date:04/23/2024 09:30:00 AM Scheduled Provider: Location:[facility] Appointment Type:URO Nurse Visit Appointment Date:05/21/2024 10:45:00 AM Scheduled Provider:Topher SAAVEDRA MD [facility] Appointment Type:URO Office Visit [facility] Evaluation + Plan note Future Appointments Appointment Date:05/08/2024 09:00:00 AM Scheduled Provider: Location:[facility] Appointment Type:URO Nurse Visit Appointment Date:05/21/2024 10:45:00 AM Scheduled Provider:Topher SAAVEDRA MD Location:[facility] Appointment Type:URO Office Visit [facility] [employer] Evaluation note Diagnosis Polycythemia- Primary Polycythemia vera documented in this encounter [employer] Phone: evalenzpnl note* Diagnosis Polycythemia- Primary Polycythemia vera documented in this encounter [employer] [place] Phone: evaluation note* Diagnosis Dermatophytosis of nail- Primary Dystrophic nail Other specified disease of nail Diabetic polyneuropathy associated with type 2 diabetes mellitus ([facility]) Nontraumatic amputation of foot, right ([facility]) Nontraumatic amputation of foot, left ([facility]) Acquired keratoderma documented in this encounter [facility] HealthcareEvaluation note* Diagnosis Acquired keratoderma- Primary Diabetic polyneuropathy associated with type 2 diabetes mellitus ([facility]) Nontraumatic amputation of foot, left ([facility]) Nontraumatic amputation of foot, right ([facility]) documented in this encounter [facility] HealthcareEvaluation note* Diagnosis Type 2 diabetes mellitus with diabetic polyneuropathy, without long-term current use of insulin ([facility])- Primary Acquired hallux malleus of left foot Acquired hammer toes of both feet Foot callus Corns and callosities Partial nontraumatic amputation of right foot ([facility]) Partial nontraumatic amputation of foot, left ([facility]) Venous stasis dermatitis of both lower extremities Type 2 diabetes mellitus with diabetic microalbuminuria, without long-term current use of insulin ([facility]) Microalbuminuria Proteinuria Essential hypertension ([facility]) Unspecified essential hypertension Mixed hyperlipidemia ([facility]) Mixed hyperlipidemia Adverse reaction to statin medication Former smoker Personal history of tobacco use, presenting hazards to health Morbid obesity ([facility]) Morbid obesity documented in this encounter [facility] HealthcareEvaluation note* Diagnosis Diabetic polyneuropathy associated with type 2 diabetes mellitus (CMS/HCC)- Primary Nontraumatic amputation of foot, left (CMS/HCC) Nontraumatic amputation of foot, right (CMS/HCC) documented in this encounter [facility] HealthcareEvaluation note* Diagnosis Diabetic polyneuropathy associated with type 2 diabetes mellitus (CMS/HCC)- Primary Nontraumatic amputation of foot, left (CMS/HCC) Nontraumatic amputation of foot, right (CMS/HCC) documented in this encounter [facility] HealthcareEvaluation note* Diagnosis Dyspepsia Dyspepsia and other specified disorders of function of stomach documented in this encounter [facility] HealthcareEvaluation note* Diagnosis Polycythemia- Primary Polycythemia vera documented in this encounter [facility] course Narrative No data available for this section [facility] Hospital Discharge instructions No data available for this section [facility] progress note No data available for this section [facility] Summary Purpose Family History No Family [...] FoundDocuments on File Type Date Recorded 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 Advance Directives and Livin g Will Advance Directives and Livin g Will 08/31/2013 9:46 AM Power of Steam Fitter Supervisor Maintenance Power of Steam Fitter Supervisor Maintenance 08/31/2013 9:46 AM Latest Code Status on File Code Status Date Activated Date Inactivated Comments Full Code 08/06/2016 9:06 AM 08/09/2016 5:53 PM Full Code 08/04/2016 9:28 PM 08/06/2016 9:06 AM Full Code 05/15/2015 12:42 PM 05/19/2015 6:52 PM Full Code 05/12/2015 11:22 AM 05/15/2015 12:42 PM Full Code 05/13/2014 2:36 PM 05/13/2014 9:20 PM Documents on File Type Date Recorded 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 ACP-Advance Directive ACP-Power of Steam Fitter Supervisor Maintenance ACP-Advance Directive 08/31/2013 9:46 AM ACP-Power of Steam Fitter Supervisor Maintenance 08/31/2013 9:46 AM Documents on File Type Date Recorded 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 ACP-Advance Directive 08/31/2013 9:46 AM ACP-Power of Steam Fitter Supervisor Maintenance 08/31/2013 9:46 AM Latest Code Status on [...] Documents on File Type Date Recorded 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 Advance Directives and Living Will 11/20/2019 2018-05-09 Living Wi ll Advance Directives and Living Will 11/20/2019 2018-05-09 Power Of Steam Fitter Supervisor Maintenance Documents on File Type Date Recorded 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 ACP-Power of Steam Fitter Supervisor Maintenance 08/31/2013 9:46 AM ACP-Advance Directive 08/31/2013 9:46 AM Date Activated Date Inactivated Comments 08/06/2016 9:06 AM 08/09/2016 5:53 PM Date Activated Date Inactivated Comments 08/04/2016 9:28 PM 08/06/2016 9:06 AM Date Activated Date Inactivated Comments 05/15/2015 12:42 PM 05/19/2015 6:52 PM Date Activated Date Inactivated Comments 05/12/2015 11:22 AM 05/15/2015 12:42 PM Date Activated Date Inactivated Comments 05/13/2014 2:36 PM 05/13/2014 9:20 PM History [...] section and content) DATE CREATED AUTHOR 11/24/2017 [facility] DATE CREATED AUTHOR AUTHOR'S ORGANIZ ATION 03/15/2018 [facility] DATE CREATED AUTHOR AUTHOR'S ORGANIZ ATION 07/01/2021 [facility] DATE CREATED AUTHOR AUTHOR'S ORGANIZ ATION 09/26/2021 [facility] dical Specialist DATE CREATED AUTHOR AUTHOR'S ORGANIZ ATION 11/13/2022 [facility] DATE CREATED AUTHOR AUTHOR'S ORGANIZ ATION 05/18/2024 [facility] dical Specialists [facility] DATE CREATED AUTHOR AUTHOR'S ORGANIZ ATION 06/03/2024 [facility] DATE CREATED AUTHOR AUTHOR'S ORGANIZ ATION 06/16/2024 [facility] DATE CREATED AUTHOR AUTHOR'S ORGANIZ ATION 06/24/2024 [facility] DATE CREATED AUTHOR AUTHOR'S ORGANIZ ATION 07/07/2024 [facility] Care Team (unrecognized sect ion and content) Quality Control Chemist Relationship Specialty Start Date End Date Jordan Duncan MD PCP - General 07/25/19 Quality Control Chemist Relationship Specialty Start Date End Date Jordan Duncan MD [address] [place] [address] PCP - General Family Medicine 10/25/22 Mitch Mello MD [address] [phone] Referring Physician Cardiology 05/17/23 Jr. Julio Henson DO [address] [address] Referring Physician Orthopaedic Surgery 05/17/23 Brody Ibrahim DPM [address] [place] [address] Referring Physician Podiatry 05/17/23 Quality Control Chemist Relationship Specialty Start Date End Date Jordan Duncan MD [address] [phone] PCP - General Family Medicine 10/25/22 Mitch Mello MD [address] [place] [address] Referring Physician Cardiology 05/17/23 Jr. Julio Henson DO [address] [address] Referring Physician Orthopaedic Surgery 05/17/23 Brody Ibrahim DPM [address] [place] [address] Referring Physician Podiatry 05/17/23 Quality Control Chemist Relationship Specialty Start Date End Date Jordan Duncan MD [address] [place] [address] (Fax) PCP - General Family Medicine 10/25/22 Jordan Duncan MD [address] [place] [address] (Fax) PCP - ACO Reach 08/05/23 Mitch Mello MD [address] [place] [address] Referring Physician Cardiology 05/17/23 Jr. Julio Henson DO [address] [place] [address] Referring Physician Orthopaedic Surgery 05/17/23 Brody Ibrahim DPM [address] [place] [address] Referring Physician Podiatry 05/17/23 Quality Control Chemist Relationship Specialty Start Date End Date Jordan Duncan MD [address] [phone] (Fax) PCP - General Family Medicine 10/25/22 Jordan Duncan MD [address] [place] [address] (Fax) PCP - ACO Reach 08/05/23 Mitch Mello MD [address] [place] [address] Referring Physician Cardiology 05/17/23 Jr. Julio Henson DO [address] [place] [facility] [address] [place] [address] Referring Physician Orthopaedic Surgery 05/17/23 Brody Ibrahim DPM [address] [place] [address] Referring Physician Podiatry 05/17/23 Quality Control Chemist Relationship Specialty Start Date End Date Jordan Duncan MD [address] [place] [address] (Fax) PCP - General Family Medicine 10/25/22 Jordan Duncan MD [address] [phone] (Fax) PCP - ACO Reach 08/05/23 Mitch Mello MD [address] [place] [id number] Referring Physician Cardiology 05/17/23 Jr. Julio Henson, [address] [address] Referring Physician Orthopaedic Surgery 05/17/23 Brody Ibrahim DPM [address] [place] [address] Referring Physician Podiatry 05/17/23 Quality Control Chemist Relationship Specialty Start Date End Date Jordan Duncan MD [address] [place] [address] (Fax) PCP - General Family Medicine 10/25/22 Jordan Duncan MD [address] [place] [address] PCP - ACO Reach 08/05/23 Mitch Mello MD [address] [place] [address] Referring Physician Cardiology 05/17/23 Jr. Julio Henson DO [address] [facility] [address] [place] [address] Referring Physician Orthopaedic Surgery 05/17/23 Brody Ibrahim DPM [address] [address] Referring Physician Podiatry 05/17/23 Quality Control Chemist Relationship Specialty Start Date End Date Jordan Duncan MD [address] [place] [address] (Fax) PCP - General Family Medicine 10/25/22 Jordan Duncan MD [address] [place] [address] (Fax) PCP - ACO Reach 08/05/23 Mitch Mello MD [address] [place] [address] Referring Physician Cardiology 05/17/23 Jr. Julio Henson DO [address] [address] Referring Physician Orthopaedic Surgery 05/17/23 Brody Ibrahim DPM [address] [facility] [place] [address] Referring Physician Podiatry 05/17/23 Quality Control Chemist Relationship Specialty Start Date End Date Jordan Duncan MD [address] [place] [address] (Fax) PCP - General Family Medicine 10/25/22 Jordan Duncan MD [address] [place] [address] (Fax) PCP - ACO Reach 08/05/23 Mitch Mello MD [address] [place] [address] Referring Physician Cardiology 05/17/23 Jr. Julio Henson DO [address] [address] Referring Physician Orthopaedic Surgery 05/17/23 Brody Ibrahim DPM [address] [place] [address] Referring Physician Podiatry 05/17/23 Quality Control Chemist Relationship Specialty Start Date End Date Jordan Duncan MD [address] [place] [address] (Fax) PCP - General Family Medicine 10/25/22 Jordan Duncan MD [address] [place] [phone] (Fax) PCP - ACO Reach 08/05/23 Mitch Mello MD [address] [place] [address] Referring Physician Cardiology 05/17/23 Jr. Julio Henson DO [address] [facility] [address] [place] [address] Referring Physician Orthopaedic Surgery 05/17/23 Brody Ibrahim DPM [address] [place] [address] Referring Physician Podiatry 05/17/23 Quality Control Chemist Relationship Specialty Start Date End Date Jordan Duncan MD [address] [place] [address] (Fax) PCP - General Family Medicine 10/25/22 Jordan Duncan MD [address] [place] [address] (Fax) PCP - ACO Reach 08/05/23 Mitch Mello MD [address] [place] [address] Referring Physician Cardiology 05/17/23 Jr. Julio Henson DO [address] [facility] 150 [place] [address] Referring Physician Orthopaedic Surgery 05/17/23 Brody Ibrahim DPM [address] [place] [address] Referring Physician Podiatry 05/17/23 Quality Control Chemist Relationship Specialty Start Date End Date Jordan Duncan MD [address] [place] [address] (Fax) PCP - General Family Medicine 10/25/22 Jordan Duncan MD [address] [place] [address] PCP - ACO Reach 08/05/23 Mitch Mello MD [address] [place] [address] Referring Physician Cardiology 05/17/23 Jr. Julio Henson DO [address] [place] [address] Referring Physician Orthopaedic Surgery 05/17/23 Brody Ibrahim DPM [address] [place] [address] Referring Physician Podiatry 05/17/23 Quality Control Chemist Relationship Specialty Start Date End Date Jordan Duncan MD [address] [place] [address] PCP - General Family Medicine 10/25/22 Jordan Duncan MD [address] [place] [address] PCP - ACO Reach 08/05/23 Mitch Mello MD [address] [place] [phone] Referring Physician Cardiology 05/17/23 Jr. Julio Henson DO [address] [facility] [address] [place] [address] Referring Physician Orthopaedic Surgery 05/17/23 Brody Ibrahim DPM [address] [place] [address] Referring Physician Podiatry 05/17/23 Quality Control Chemist Relationship Specialty Start Date End Date Jordan Duncan MD [address] [facility] 100 [place] [address] PCP - General Family Medicine 10/25/22 Jordan Duncan MD 112 [facility] 100 [place] [address] PCP - ACO Reach 08/05/23 Mitch Mello MD [address] [place] [address] Referring Physician Cardiology 05/17/23 Jr. Julio Henson DO [address] [facility] 150 [place] [address] Referring Physician Orthopaedic Surgery 05/17/23 Brody Ibrahim DPM [address] [place] [address] Referring Physician Podiatry 05/17/23 Quality Control Chemist Relationship Specialty Start Date End Date Jordan Duncan MD PCP - General 07/25/19 Reason for Visit (unrecogniz ed section and content) Reason Comments Nail care Juan Miguel Jennings is a 73 y.o. male who presents for Nail care and discuss inserts. Pt relates recently saw Dr Hargrove right foot ulcer, which has improved. Dr. 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 PCP: Dr. Dakota YARBROUGH 03/27/24, A1C: 6.4 (5), BS: 132 SS: 14. Reason Comments Diabetic shoe check Juan Miguel Jennings is a 74 y.o. male who presents diabetic shoe check. PCP: Dr. Duncan 03/27/24, A1C: 6.4 (10/04), [...] BE BASED ON THE PRIMARY CLINICAL RECORDS. [employer] [facility]. provides no warranty or guarantee of the accuracy or completeness of information in this document.
== END 2024-07-10 14:34 | disposition home or self-care (01) ==
LOC: WC 14:33
PROVIDERS: PCP Family Medicine; Visit Provider Physician Assistant
DX: L84 Corns and callosities (principal); E11.40 Type 2 diabetes mellitus with diabetic neuropathy, unspecified; E11.621 Type 2 diabetes mellitus with foot ulcer; L97.412 Non-pressure chronic ulcer of right heel and midfoot with fat layer exposed
CPT/HCPCS: 11043

== ENCOUNTER 2024-07-25 09:18 | Outpatient (OUT) | payer MEDICARE, SELFPAY ==
--- OUTSIDE RECORDS SUMMARY | 2024-07-25 09:37 | XMS_ITS | CCD ---
Author Organization [facility] Care Team Providers Care Recreational Facilities Motel Manager Name Role Phone PHYSICIAN, DEFAULT Unavailable Unavailable PHYSICIAN, DEFAULT Unavailable Unavailable Diego Bartlett Primary Care Provider Jordan Duncan Primary Care Provider Jordan Duncan MD Primary Care Provider [phone] JORDAN DUNCAN Primary Care Physician Jordan Duncan [...] ., DR ALATORRE Primary Care Unavailable ENEDINA HAGRROVE Attending Unavailable ENEDINA HARGROVE Admitting Unavailable ARNOLD PEOPLES Admitting Unavailable ARNOLD PEOPLES Attending Unavailable HEMEYER ., DR ALATORRE Primary Care Unavailable SAAVEDRA ., DR OBANDO Consulting Unavailable [...] OBANDO Admitting Unavailable DARRIUS BOLTON Consulting Unavailable HIGHLANDER, PETER D Attending Unavailable HIGHLANDER, PETER D Admitting Unavailable HEMEYER ., DR ALATORRE Primary Care Unavailable ENEDINA HARGROVE Attending Unavailable HIGHLSULAIMAN, PETER D Admitting Unavailable HEMEYER ., DR ALATORRE Primary Care Unavailable Dakota NOLASCO, Jordan Brown Primary Care Provider Funmilayo NOLASCO, Mitch Armendariz Unavailable Jr. Anuja Henson DO Unavailable Alexandria DALAL, Brody Xiao Unavailable Jordan Duncan MD Unavailable Jordan Duncan MD Primary Care Provider Jordan Duncan MD Unavailable Jordan Duncan MD Primary Care Provider [phone] Dakota NOLASCO, Jordan Brown Unavailable [phone] ALEXANDRIA, BRODY Xiao Attending Unavailable RUSHER, BRODY [...] Attending Unavailable SAAVEDRA, Topher R Attending Unavailable Hemeyer Jordan NOLASCO Primary Care Provider WILLI SANCHEZ Referring Unavailable JORDAN DUNCAN Primary Care Unavailable JORDAN DUNCAN Primary Care Unavailable WILLI SANCHEZ Referring Unavailable JORDAN DUNCAN Primary Care Unavailable WILLI SANCHEZ Referring Unavailable ANUJA HUDDLESTON Attending Unavailable PAUL CLEMONS Attending Unavailable Allergies Allergy Classification Reported Allergen(s) Allergy Type Date of Onset Reaction(s) Facility (4 sources) Clindamycin/Linc omycin Propensity to adverse reactions to drug 8 Diarrhea [employer] ([place] sources) Clindamycin Drug Allergy 2 [employer] (4 sources) glipiZIDE; Translations: [GLIPIZIDE] Drug Allergy 2 Diarrhea [employer] Phone: (20 sources) metFORMIN; Translations: [METFORMIN] Drug Allergy 2 Diarrhea, Unknown [employer] Phone: (20 sources) Pravastatin; Translations: [PRAVASTATIN] Drug Allergy 2 Unknown [employer] Phone: (4 sources) rosuvastatin; Translations: [ROSUVASTATIN] Drug Allergy 2 [employer] Phone: (2 sources) Clindamycin; Translations: [CLINDAMYCIN] Drug Allergy 7 [facility] Repository (1 source) glipiZIDE Drug Allergy 7 [facility] Rep[facility] (1 source) metFORMIN Drug Allergy 7 [facility] Rep[facility] (20 sources) Clindamycin Drug Allergy 2 Diarrhea [facility] (20 sources) ezetimibe; Translations: [EZETIMIBE] Drug Allergy 2 Unknown [facility] Healthcare (20 sources) glipiZIDE Drug Allergy 2 Diarrhea, Unknown [facility] Healthcare (20 sources) Rosuvastatin calcium Allergy to substance 1 Unknown [facility] Medications Current Medications Medication Drug Class(es) [...] Status: Ordered take 2 tablets by mo [facility] once daily losartan (COZAAR) 25 MG tablet [...] MG 24 hr tablet Indications: Atherosclerosis of 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 Do not crush or chew.. 135 tablet 1 04/20/2023 10/17/2023 Active [facility] metoprolol succinate (TOPROL XL) 50 MG extended release tablet Take 1 tablet by mouth nightly 100mg in the am, 50mg in the pm Active take 2 tablets by mo [facility] twice daily in the evening metoprolol (TOPROL-XL) [...] BID, # 180 cap(s), Refills(s) 3, Pharmacy: [facility]/pharmacy #[id number], 198, cm, 12/05/23 10:49:00 EDT, Height/Length Dosing, 150.3, kg, 12/05/23 10:49:00 EDT, Weight Dosing Start Date: 01/11/24 Status: Ordered Start: 06-18-2022 take 1 capsule by [facility] once daily tamsulosin 0.4 mg Cap 0.4 mg = 1 cap(s), Oral, Daily, # 90 cap(s), Refills(s) 3, Pharmacy: [facility]/pharmacy #[id number], 198, cm, 11/05/22 10:14:00 EDT, Height/Length Dosing, 150, kg, 11/05/22 10:14:00 EDT, Weight Dosing Start Date: 05/26/23 Status: Ordered take 1 capsule by [facility] every twenty-four hours in the morning [...] q4wk, # 10 mL, Refills(s) 1, [id number], cm, 12/05/23 10:49:00 EDT, Height/Length Dosing, 150.3, kg, 12/05/23 10:49:00 EDT, Weight Dosing Start Date: 03/27/24 Status: Ordered Start: 01-03-2024 testosterone c ypionate 200 mg/mL IM Richelle 400 mg, IntraMuscular, q4wk, # 10 mL, Refills(s) 1, Pharmacy: [facility]/pharmacy #[id number], 198, cm, 12/05/23 10:49:00 EDT, Height/Length Dosing, 150.3, kg, 12/05/23 10:49:00 EDT, Weight Dosing Start Date: 01/03/24 Status: Ordered Start: 06-20-2023 testosterone c ypionate 200 mg/mL IM Richelle 450 mg, IntraMuscular, q4wk, # 10 mL, Refills(s) 1, Pharmacy: [facility]/pharmacy #[id number], 198, cm, 06/20/23 11:05:00 EST, Height/Length Dosing, 149, kg, 06/20/23 11:05:00 EST, Weight Dosing Start Date: 06/20/23 Status: Ordered Start: 05-09-2023 testosterone c ypionate 200 mg/mL IM Richelle 400 mg, IntraMuscular, q4wk, # 10 mL, Refills(s) 1, Pharmacy: [facility]/pharmacy #[id number], 198, cm, 11/05/22 10:14:00 EDT, Height/Length Dosing, 150, kg, 11/05/22 10:14:00 EDT, Weight Dosing Start Date: 05/09/23 Status: Ordered Start: 02-08-2023 testosterone c ypionate 200 mg/mL IM Richelle 400 mg, IntraMuscular, q4wk, # 10 mL, Refills(s) 2, Pharmacy: [facility]/pharmacy #[id number], 198, cm, 11/05/22 10:14:00 EDT, Height/Length Dosing, 150, kg, 11/05/22 10:14:00 EDT, Weight Dosing Start Date: 02/08/23 Status: Ordered Start: 08-27-2022 testosterone c ypionate 200 mg/mL IM Richelle 400 mg, IntraMuscular, q4wk, # 10 mL, Refills(s) 2, Pharmacy: [facility]/pharmacy #[id number], 198, cm, 06/18/22 9:10:00 EST, Height/Length Dosing, 164, kg, 06/18/22 9:10:00 EST, Weight Dosing Start Date: 08/27/22 Status: Ordered testosterone cypionate 200 mg/mL intramuscular solution (17 sources) Start: 02-01-2022 testosterone c ypionate 200 mg/mL intramuscular solution 400 mg = 2 mL, IntraMuscular, q4wk, 400mg once a month, # 10 mL, Refills(s) 3, Pharmacy: [facility]/pharmacy #[id number], 198, cm, 02/01/22 9:53:00 EDT, Height/Length Dosing, 166, kg, 02/01/22 9:53:00 EDT, Weight Dosing Start Date: 02/01/22 Status: Ordered Start: 11-23-2021 testosterone c ypionate 200 mg/mL intramuscular solution 350 mg, IntraMuscular, q4wk, # 10 mL, Refills(s) 1, Pharmacy: [facility]/pharmacy #[id number], 198, cm, 08/03/21 14:37:00 EST, Height/Length Dosing, 166, kg, 08/03/21 14:37:00 EST, Weight Dosing Start Date: 11/23/21 Status: Ordered Start: 08-03-2021 testosterone c ypionate 200 mg/mL intramuscular solution 350 mg, IntraMuscular, q4wk, # 10 mL, Refills(s) 1, Pharmacy: [facility]/pharmacy #[id number], 198, cm, 08/03/21 14:37:00 EST, Height/Length [...] Coronary arteriosclerosis; Translations: [Atherosclerotic heart disease of morongo coronary artery without angina pectoris] Onset: 04-08-2017 [...] 01-13-2023 01-11-2023 Chronic 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 (1 source) 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; Translations: [NURSING HOME CURRNT USE ANTICOAGULANTS] Onset: 10-12-2022 Episodic 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 (1 source) [employer]termaker continuous churn (current) use of aspirin; Translations: [NURSING HOME CURRENT USE OF ASPIRIN] Onset: 10-12-2022 Episodic 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 (1 source) [employer]termaker continuous churn (current) use of oral hypoglycemic drugs; Translations: [NURSING HOME USE ORAL HYPOGLYCEMIC DX] Onset: 10-12-2022 Episodic 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 (1 source) Other [employer] (current) drug therapy; Translations: [OTH NURSING HOME CURRENT DRUG THERAPY] Onset: 09-20-2022 Episodic Other [...] Onset: 03-04-2021 01-11-2023 Chronic Residual codes; unclassified (2 sources) Obstructive sleep apnea (adult) (pediatric); Translations: [Obstructive sleep apnea (adult) (pediatric)] Onset: 07-16-2024 Chronic Residual codes; unclassified (1 source) Family history of malignant neoplasm of digestive organs; Translations: [FAM HX MALIG NEOPLASM DIGESTIV ORGN] Onset: 09-20-2022 Episodic Residual codes; unclassified (2 sources) Other specified health status; Translations: [Other specified health status] Onset: 07-16-2024 Episodic Superficial injury; contusion (6 sources) Blister [...] Mood disorders (20 sources) Mood disorders Onset: 05-17-20 23 05-17-2023 Other connective tissue disease (20 sources) History [...] 24 01-11-2023 Chronic Other nervous system disorders (20 sources) [...] Test Name Value Interpretation Reference Range Facility Office Visiton 07-16-2024 Follow-up visit [id number] Juan Miguel Jennings 1950 M Date Provider Department Center 07/16/[address] [place] [facility] Family History Problem Relation Age of Onset Heart disease Mother Heart disease Father Family Status - Relation Status Age at Mother Father Level of Service:26468 MO OFFICE/OUTPATIENT ESTABLISHED MOD MDM 30 MIN Normal [facility] 36on 07-09-2024 36 What is his blood pressure running? We can have him try holding amlodipine to see if this will help. We can see how he's feeling at his follow-up appt next week. Normal [facility] CBC W/AUTO DIFFon 06-21-2024 ABS IMMATURE GRAN 0.04 K/uL Normal 0.00-0.06 [facility] Comment on above: Result Comment: UNLE SS OTHERWISE INDICATED, ALL TESTING PERFORMED AT: ?, [facility] [address] [place] [id number] POWER MACHINE OPERATOR: JONI NI M.D. CLIA NUMBER [id number] CAP ACCREDITATION AUID [id number] ABS NEUTROPHILS 5.59 K/uL Normal 1.9-8.0 Pathology [...] We will have our cardiology pharmacist Iron Bess reach out to him who can further help. Please schedule him for follow-up with Dr. Huddleston in 6-8 weeks. Thank you Spoke with patient and informed him of above message from Dianne. He agrees to start isosorbide and amlodipine. Sent to [facility] per his request. He will see Dr. Huddleston in clinic on 07/16/2024 in [place]. Do you need me to send something to Iron Bess or did you already? Normal [facility] Documentationon 06-08-2024 Documentation [id number] Juan Miguel Jennings 1950 M Date Provider Department Center 06/08/2024 [id number] OROZCO [facility] Family History Problem Relation Age of Onset Heart disease Mother Heart disease Father Family Status - Relation Status Age at Mother Father Reason for Visit and Comments: PharmD Cardiology Consult [Other] [facility] Orders Onlyon 06-02-2024 Orders Only [id number] Juan Miguel Jennings 1950 M Date Provider Department Center 06/02/2024 PAUL JAIMES [facility] Family History Problem Relation Age of Onset Heart disease Mother Heart disease Father Family Status - Relation Status Age at Mother Father Normal [facility] Reminderson 06-01-2024 Reminders Reminders From: Bertha Winter [...] ) Other: PROVIDER RELATED REMINDER:_ ( ) Home Attendant ( ) Call Pharmacy ( ) Call Lab ( ) Other: Special Instructions:_ Comments:_ Results in chart for review Normal [facility] ALL CBC WITH AUTO DIFFon BASOPHILS ABSOLUTE AUTO 0 [facility] Basophils/100 WBC (Bld) 0.4 % 0.2 - 2.0 % [facility] Eosinophils/100 WBC (Bld) 4.2 % 0.9 - 7.0 % [facility] Erythrocyte distribution width (RBC) [Ratio] 13.8 % 11.0 - 15.0 % [facility] Hematocrit (Bld) [Volume fraction] 53 % 42.0 - 54.0 % [facility] Hemoglobin (Bld) [Mass/Vol] 17.9 g/dL 14.0 - 18.0 g/dL [facility] IMMATURE GRANULOCYTES ABS AUTO 0.01 [facility] Immature granulocytes/100 WBC (Bld) 0.1 % 0.0 - 0.5 % [facility] Interpretation and review of laboratory results Abnormal [facility] LYMPHOCYTES ABSOLUTE AUTO 1.1 Low [facility] Lymphocytes/100 WBC (Bld) 15 % Low 20.5 - 60.0 % [facility] MCH (RBC) [Entitic mass] 32.9 pg 25.9 - 34.0 pg [facility] MCHC (RBC) [Mass/Vol] 33.8 g/dL 29.9 - 35.2 g/dL [facility] MCV (RBC) [Entitic vol] 97.4 fL High 80.0 - 94.0 fL [facility] MONOCYTES ABSOLUTE AUTO 0.9 High [facility] Monocytes/100 WBC (Bld) 12.2 % High 1.7 - 12.0 % [facility] NEUTROPHILS ABSOLUTE AUTO 4.8 [facility] Neutrophils/100 WBC (Bld) 68.1 % 43.0 - 75.0 % [facility] Platelet mean volume (Bld) [Entitic vol] 12.5 fL 9.5 - 13.5 fL [facility] TBH EO # 0.3 [facility] PLT 144 Low [facility] RBC 5.44 [facility] WBC 7.1 [facility] Ambulatory Visit Summaryon 1 07-22-2023 Ambulatory Visit Summary Ambulatory Visit Summary JUAN MIGUEL JENNINGS :1950 Visit Date:05/21/2024 Ambulatory Visit Instructions Your Diagnosis Hypogonadism Elevated PSA BPH with urinary obstruction OAB (overactive bladder) Your Care Team Attending Physician - KERI NOLASCO, Topher Ordoñez Primary Care Physician - DAKOTA NOLASCO, JORDAN Brown This Is Your Medications List [facility] Prescription (METOPROLOL TARTRATE 100 MG TAB) aspirin [...] Following Appointments Follow Up with KERI NOLASCO, Topher Ordoñez, URL When: Where: [facility] [address] , [place] [address]- Medications What How Much When Instructions Unchanged [...] PSA History of colon cancer Hx of alf use of blood thinners Hyperlipidemia Hypertension Hypogonadism [...] ??? Ea (more content not included)... Normal [facility] Urology Office/Clinic Noteon 05-21-2024 Urology Office/Clinic Note [...] Testosterone level: 10/20/22 - 321 05/23/23 - 278 11/21/23 - 412 05/08/24 - 461 Dysuria: denies Incomplete bladder emptying: states he [...] Has not been able to donate blood, [facility] will not let him. Pt will talk to his oncologist in [place] to see if there is another way he can donate blood. Shares he got CBC drawn on 05/08 at [facility], no results on [facility], called lab and they did not have [...] onc to facilitate blood donation/get permission for [facility]. 2. Elevated PSA (R97.20: Elevated prostate specific [...] 5mg qd. Follow-up With When Contact Information Topher SAAVEDRA MD, URL [facility] [address], [place] [address]- Additional Instructions: f/u pending HGB/CBC and blood [...] PSA History of colon cancer Hx of alf use of blood thinners Hyperlipidemia Hypertension Hypogonadism [...] 1 tab(s), (more content not included)... Normal [facility] Comment on above: Result Comment: Elec tronically Signed By: Topher SAAVEDRA MD\.br\Date and Time Signed: 05/21/24 12:18 EST\.br\Electronically Co-Signed By: Bertha Winter\.br\Date and Time Co-Signed: 05/21/24 12:17 EST ALL LIPID PROFILE (FASTING)o n 05-08-2024 CHOL HDL RATIO 4.5 [facility] Comment on above: 3.3 - 4.4 LOW RISK 4.4 - 7.1 AVERAGE RISK 7.1 - 11.0 MODERATE RISK >11.0 HIGH RISK Cholesterol [Mass/Vol] 189 mg/dL NINF - 200 mg/dL [facility] Cholesterol in HDL [Mass/Vol] 42 mg/dL 40 - 60 mg/dL [facility] Comment on above: > or =60 mg/dl - LOW CARDIOVASCULAR RISK <40 mg/dl - HIGH CARDIOVASCULAR RISK LDL CHOLESTEROL CALCULATED 124.2 mg/dL [facility] Comment on above: <100 mg/dl OPTIMAL 100-129 mg/dl NEAR OR ABOVE OPTIMAL 130-159 mg/dl BORDERLINE HIGH 160-189 mg/dl HIGH >190 mg/dl VERY HIGH Magnesium [Mass/Vol] 22.8 mg/dL [facility] Triglyceride [Mass/Vol] 114 mg/dL NINF - 150 mg/dL [facility] Office Visiton 05-02-2024 Follow-up visit [id number] Juan Miguel Jennings 1950 M Date Provider Department Center 05/02/2024 PAUL JAIMES [facility] [place] [facility] Family History Problem Relation Age of Onset Heart disease Mother Heart disease Father Family Status - Relation Status Age at Mother Father Level of Service:90276 MO OFFICE/OUTPATIENT ESTABLISHED MOD MDM 30 MIN Reason for Visit and Comments: Coronary Artery Disease [187] Hypertension [495518] Normal [facility] Ambulatory Visit Summaryon 1 06-23-2023 Ambulatory Visit [...] AM EST With: Where: [facility] [address] [place] [address]- Tuesday 10:45 AM EST With: Topher SAAVEDRA MD Where: [facility] [address] [place] [address]- Medications What How Much When Instructions Unchanged [...] PSA History of colon cancer Hx of alf use of blood thinners Hyperlipidemia Hypertension Hypogonadism [...] you for choosing us for your care. [facility] Ambulatory Visit Summaryon 1 Ambulatory Visit Summary Ambulatory Visit Summary JUAN MIGUEL JENNINGS :1950 Visit Date:03/27/2024 Ambulatory Visit Instructions Your Diagnosis Hypogonadism male Your Care Team Attending Physician - KERI NOLASCO, Topher Ordñoez Primary Care Physician - DAKOTA NOLASCO, JORDAN Brown This Is Your Medications List [facility] Prescription (METOPROLOL TARTRATE 100 MG TAB) aspirin [...] AM EST With: Where: [facility] [address] [place] [address]- Tuesday 10:45 AM EST With: KERI NOLASCO, Topher Ordoñez Where: [facility] [address] [place] [id number]- Medications What How Much When Instructions Unchanged [...] PSA History of colon cancer Hx of alf use of blood thinners Hyperlipidemia Hypertension Hypogonadism [...] for choosing us for your care. Normal [facility] CBC W/AUTO DIFFon 02-22-2024 ABS IMMATURE GRAN [...] on above: Result Comment: [facility] [address] [place] [address] CLIA No. [id number] CAP Accreditation No. [id number] Patient Portal Concierge: Shaunna Dee M.D. Platelets (Bld) [#/Vol] 128 [...] 9:30 AM EDT Where: [facility] [address] [place] [address]- Medications What How Much When Instructions Unchanged [...] PSA History of colon cancer Hx of alf use of blood thinners Hyperlipidemia Hypertension Hypogonadism [...] for choosing us for your care. Normal [facility] Urology Office/Clinic Noteon 12-05-2023 Urology Office/Clinic Note [...] [facility] [address], [place] [address]- [phone] Additional Instructions: 6 mos w/ T level [...] PSA History of colon cancer Hx of watcher [employer] use of blood thinners Hyperlipidemia Hypertension Hypogonadism [...] Oral, TID, (more content not included)... Normal [facility] Comment on above: Result Comment: Elec tronically Signed By: Topher SAAVEDRA MD\.br\Date and Time Signed: 12/05/23 11:42 EDT\.br\Electronically Co-Signed By: Erica Marin\Bintabr\Date and Time Co-Signed: 12/05/23 11:40 EDT [facility] 11-22-2023 Lab Reports [id number] .00TIFF Normal [facility] 11-09-2023 Lab Reports [id number] .00TIFF Normal [facility] CBC W/AUTO DIFFon 10-25-2023 ABS IMMATURE GRAN [...] above: Result Comment: [facility] [address] [place] [address] CLIA No. [id number] CAP Accreditation No. [id number] Patient Portal Concierge: Shaunna Dee M.D. Platelets (Bld) [#/Vol] 141 [...] 9:00 AM EDT Where: [facility] Ambulatory Visit Summaryon 0 09-09-2023 Ambulatory [...] Tuesday 8:30 AM EDT Where: [facility] 07-15-2023 Lab Reports [id number] .00TIFF [facility] 06-28-2023 Lab Reports [id number] .00TIFF [facility] Ambulatory Visit Summaryon 0 06-20-2023 Ambulatory Visit Summary JUAN MIGUEL JENNINGS :1950 Visit Date:06/20/2023 Ambulatory Visit Instructions Your Diagnosis Hypogonadism male Elevated PSA BPH with urinary obstruction Phimosis Urinary urgency Tests Performed Urnls Dip Stick Auto w/o Microscopy POC 21710 Your Care Team Attending Physician - KERI [...] 9:30 AM EST [facility] Patient Educationon 06-20-19 Patient Education Urology Hypogonadism, [...] Follow these instructions at home: ? Take [id number] and prescription medicines only as told by [...] 01/22/2021 Document (more content not included)... Normal [facility] Urology Office/Clinic Noteon 06-20-2023 Urology Office/Clinic Note [...] SEs. Follow-up With When Contact Information Topher SAAVEDRA MD, URL [facility] [address], [place] [address]- [phone] Additional Instructions: 6 mos w/ PSA and [...] PSA History of colon cancer Hx of watcher [employer] goods use of blood thinners Hyperlipidemia Hypertension Hypogonadism [...] (more content not included)... Normal [facility] Comment on above: Result Comment: Elec tronically Signed By: Topher SAAVEDRA MD\.br\Date and Time Signed: 06/20/23 11:28 EST\.br\Electronically Co-Signed By: Erica Marin\.br\Date and Time Co-Signed: 06/20/23 11:26 EST POINT OF CARE GLUCOSEon 04- Glucose [Mass/Vol] 112 mg/dL Critically high 74-106 T [facility] Comment on above: Performed By: #### P OCGLUC #### [facility] [address] [place] [address] Dr. Patria Sanders CBC AUTO DIFFon 09-15-2022 BASO # 0.0 103/ul Normal 0.0-0.1 [facility] Comment on above: Performed By: #### C BC #### [facility] [address] [place] [address] Dr. Patria Sanders Basophils/100 WBC (Bld) 0.5 % Normal 0.2-2.0 [facility] Comment on above: Performed By: #### C BC #### [facility] [address] [place] [address] Dr. Patria Sanders EO # 0.3 103/ul Normal 0.0-0.7 [facility] Comment on above: Performed By: #### C BC #### [facility] [address] [place] [address] Dr. Patria Sanders Eosinophils/100 WBC (Bld) 3.2 % Normal 0.9-7.0 [facility] Comment on above: Performed By: #### C BC #### [facility] [address] [place] [address] Dr. Patria Sanders Erythrocyte distribution width (RBC) [Ratio] 14.5 % Normal 11.0-15.0 [facility] Comment on above: Performed By: #### C BC #### [facility] [address] [place] [address] Dr. Patria Sanders Hematocrit (Bld) [Volume fraction] 49.0 % Normal 42.0-54.0 [facility] Comment on above: Performed By: #### C BC #### [facility] [address] [place] [address] Dr. Patria Sanders Hemoglobin (Bld) [Mass/Vol] 16.7 g/dL Normal 14.0-18.0 [facility] Comment on above: Performed By: #### C BC #### [facility] [address] [place] [address] Dr. Patria Sanders IG # 0.03 10e3/ul Normal 0.00-0.03 [facility] Comment on above: Performed By: #### C BC #### [facility] [facility] [address] [place] [address] Dr. Patria Sanders IG % 0.4 % Normal 0.0-0.5 [facility] Comment on above: Performed By: #### C BC #### [facility] [address] [place] [address] Dr. Patria Sanders LYMPH # 1.1 103/ul Critically low 1.2-3.8 [facility] Comment on above: Performed By: #### C BC #### [facility] [address] [place] [address] Dr. Patria Sanders Lymphocytes/100 WBC (Bld) 14.5 % Critically low 20.5-60.0 [facility] Comment on above: Performed By: #### C BC #### [facility] [address] [place] [address] Dr. Patria Sanders MANUAL DIFF REQ NO Normal [facility] Comment on above: Performed By: #### C BC #### [facility] [address] [place] [address] Dr. Patria Sanders MCH (RBC) [Entitic mass] 32.6 pg Normal 25.9-34.0 [facility] Comment on above: Performed By: #### C BC #### [facility] [address] [place] [address] Dr. Patria Sanders MCHC (RBC) [Mass/Vol] 34.1 g/dL Normal 29.9-35.2 [facility] Comment on above: Performed By: #### C BC #### [facility] [address] [place] [address] Dr. Patria Sanders MCV (RBC) [Entitic vol] 95.5 fL Critically high 80.0-94.0 [facility] Comment on above: Performed By: #### C BC #### [facility] [address] [place] [address] Dr. Patria Sanders MONO # 0.8 103/ul Normal 0.3-0.8 [facility] Comment on above: Performed By: #### C BC #### [facility] [address] [place] [address] Dr. Patria Sanders Monocytes/100 WBC (Bld) 9.6 % Normal 1.7-12.0 [facility] Comment on above: Performed By: #### C BC #### [facility] [address] [place] [address] Dr. Patria Sanders NEUT # 5.6 103/ul Normal 1.4-6.5 [facility] Comment on above: Performed By: #### C BC #### [facility] [address] [place] [address] Dr. Patria Sanders Neutrophils/100 WBC (Bld) 71.8 % Normal 43.0-75.0 [facility] Comment on above: Performed By: #### C BC #### [facility] [address] [place] [address] Dr. Patria Sanders Platelet mean volume (Bld) [Entitic vol] 11.6 fL Normal 9.5-13.5 [facility] Comment on above: Performed By: #### C BC #### [facility] [address] [place] [address] Dr. Patria Sanders PLT 154 103/ul Normal 150-450 [facility] Comment on above: Performed By: #### C BC #### [facility] [address] [place] [address] Dr. Patria Sanders RBC 5.13 106/ul Normal 4.70-6.10 [facility] Comment on above: Performed By: #### C BC #### [facility] [address] [place] [address] Dr. Patria Sanders WBC 7.8 103/ul Normal 4.0-11.0 [facility] Comment on above: Performed By: #### C BC #### [facility] [address] [place] [address] Dr. Patria Sanders PROF CHEM 8 (BAS METB)on Anion gap [Moles/Vol] 11.4 mmol/L Normal [facility] Comment on above: Performed By: #### B MP #### [facility] [address] [address] [address] Patria Sanders Calcium [Mass/Vol] 9.1 mg/dL Normal 8.5-10.1 [facility] [place] [facility] Comment on above: Performed By: #### B MP #### [facility] [address] [address] [address] Patria Sanders Chloride [Moles/Vol] 104 mmol/L Normal 98-107 [facility] Comment on above: Performed By: #### B MP #### [facility] [address] [address] [address] Patria Sanders CO2 [Moles/Vol] 28.7 mmol/L Normal 21.0-32.0 [facility] Comment on above: Performed By: #### B MP #### [facility] [address] [place] [address] Dr. Patria Sanders Creatinine [Mass/Vol] 0.80 mg/dL Normal 0.70-1.30 [facility] Comment on above: Performed By: #### B MP #### [facility] [address] [address] [address] Patria Sanders EGFR-AF STATELESS >60 Normal >=60 [facility] Comment on above: Performed By: #### B MP #### [facility] [address] [place] [address] Dr. Patria Sanders EGFR-NON AF STATELESS >60 Normal >=60 [facility] Comment on above: Performed By: #### B MP #### [facility] [address] [address] [address] Patria Sanders Glucose [Mass/Vol] 101 mg/dL Normal 74-106 [facility] [place] [facility] Comment on above: Performed By: #### B MP #### [facility] [address] [address] [address] Patria Sanders Potassium [Moles/Vol] 4.1 mmol/L Normal 3.5-5.1 [facility] Comment on above: Performed By: #### B MP #### [facility] [address] [address] [address] Patria Sanders Sodium [Moles/Vol] 140 mmol/L Normal 136-145 [facility] [place] [facility] Comment on above: Performed By: #### B MP #### [facility] [address] [place] [address] Dr. Patria Sanders Urea nitrogen [Mass/Vol] 11.0 mg/dL Normal 7.0-18.0 [facility] Comment on above: Performed By: #### B MP #### [facility] [address] [place] [address] Dr. Patria Sanders Urea nitrogen/Creatinine [Mass ratio] 13.8 mg/mg Normal [facility] Comment on above: Performed By: #### B MP #### [facility] [address] [place] [address] Dr. Patria Sanders PROTIMEon 09-15-2022 INR Coag (PPP) [Relative time] 1.02 {INR} Normal [facility] Comment on above: Performed By: #### P TT, PT #### [facility] [address] [place] [address] Dr. Patria Sanders INR GUIDELINES SEE BELOW Normal [facility] Comment on above: Result Comment: SANTO RED INR: 2.0 - 3.0 CONDITIONS NOT LISTED BELOW 2.5 - 3.5 FOR PROSTHETIC HEART VALVE REPLACEMENT 2.5 - 3.5 RECURRENT THROMBOSIS Performed By: #### P TT, PT #### [facility] [address] [place] [address] Dr. Patria Sanders PT Coag (PPP) [Time] 10.8 s Normal 9.0-11.6 [facility] Comment on above: Performed By: #### P TT, PT #### [facility] [address] [place] [address] Dr. Patria Sanders PTTon 09-15-2022 aPTT Coag (Bld) [Time] 32.0 s Normal 22.3-36.2 [facility] Comment on above: Performed By: #### P TT, PT #### [facility] [address] [place] [address] Dr. Patria Sanders Covid-19 PCR ([facility])on 01-04 SARS-CoV-2 (COVID-19) RNA NANCY+probe Ql (Unsp spec) Not detected Normal NOT DETECTED [facility] Comment on above: Result Comment: This test is not yet approved or cleared by the [place] FDA. When there are no FDA-approved or cleared tests available, and other criteria are met, FDA can make tests available under an emergency access mechanism called an Emergency Use Authorization (EUA). The EUA for this test is supported by the [place] of Health and Human Service's (HHS's) declaration [...] SARS-CoV-2. Performed By: #### C VDTB #### [facility] [address], [place] [address] Dr. Patria Sanders Hemoglobin A1Con 09-24-2021 EAG 128.37 Normal [facility] Comment on above: Performed By: #### A 1C #### [facility] [address], [place] [id number] HbA1c (Bld) [Mass fraction] 6.1 % High 4.0-6.0 [facility] Comment on above: Performed By: #### A 1C #### [facility] [address], [place] [id number] Testosteroneon 05-11-2021 TESTOS 314.70 ng/dL Normal 193.00-740.00 [facility] Comment on above: Performed By: #### T EST #### [facility] [address], [place] [id number] XR femur BIon 05-06-2021 XR femur BI [facility] Main [address] [address] XRay Report Signed Patient: Juan Miguel Jennings MR#: [id number] 25 : 1950 Acct:[id number] Age/Sex: 71 / M ADM Date: 05/06/21 Loc: ICXD Room: Type: [facility] Attending Dr: Maxwell Staley PA-C Ordering Provider: Maxwell Staley PA-C Date of Service: 05/06/21 XR/XR chest 2V*: Z01.818 ([id number]) XR/XR femur BI: Z01.818 ([id number]) XR/XR tibia/fibula BI: . Copies to: Maxwell [...] Rosanne Echeverria M.D.05/06/2021 3:12 PM Dictation Location: [place] [address] Transcribed By: [facility] 05/06/21 1512 Dictated By: Rosanne Echeverria MD 05/06/21 1506 Signed By: 05/06/21 1512 [facility] Progress Noteon 10-12-2017 HIM IP Note OR Supervisor Counsel[facility] Vital Signs Date Time Vital Sign Value Performing Clinician Facility 07-05-2024 13:45-0500 Diastolic blood pressure 72 mm[Hg] Mth[facility] Schedule [facility] 07-05-2024 13:45-0500 Heart rate 77 /min Mthz Schedule [facility] 07-05-2024 13:45-0500 Systolic blood pressure 135 mm[Hg] Mthz Schedule [facility] 07-05-2024 13:16-0500 Body temperature 97.5 [degF] Mthz Schedule [facility] 07-05-2024 13:16-0500 Respiratory rate 18 /min Mthz Schedule [facility] 05-21-2024 10:44-0500 Blood Pressure Location Topher SAAVEDRA [facility] 05-21-2024 10:44-0500 Body temperature 98.6 [degF] Topher SAAVEDRA [facility] 05-21-2024 10:44-0500 Diastolic blood pressure 79 mm[Hg] Topher SAAVEDRA [facility] 05-21-2024 10:44-0500 Heart rate 58 /min Topher SAAVED[facility] 05-21-2024 10:44-0500 Respiratory rate 16 /min Topher SAAVED[facility] 05-21-2024 10:44-0500 Systolic blood pressure 133 mm[Hg] Topher SAA[facility] 05-15-2024 10:21-0500 Body height 198.1 cm Brody Ibrahim DPM Work Phone: [facility] 05-15-2024 10:21-0500 Body mass index (BMI) [Ratio] 40.45 kg/m2 Brody Ibrahim DPM Work Phone: [facility] 05-15-2024 10:21-0500 Body weight 158.76 kg Brody Ibrahim DPM Work Phone: [facility] 04-23-2024 10:41-0500 Body height 198.1 cm Brody Ibrahim DPM Work Phone: [facility] 04-23-2024 10:41-0500 Body mass index (BMI) [Ratio] 40.45 kg/m2 Brody Ibrahim DPM Work Phone: [facility] 04-23-2024 10:41-0500 Body weight 158.76 kg Brody Ibrahim DPM Work Phone: [facility] 03-29-2024 12:49-0400 Body height 198.1 cm Brody Ibrahim DPM Work Phone: [facility] 03-29-2024 12:49-0400 Body mass index (BMI) [Ratio] 40.45 kg/m2 Brody Ibrahim DPM Work Phone: [facility] 03-29-2024 12:49-0400 Body weight 158.76 kg Brody Ibrahim DPM Work Phone: [facility] 03-27-2024 14:00-0400 Body height 198.1 cm Jordan Duncan MD Work Phone: [facility] 03-27-2024 14:00-0400 Body mass index (BMI) [Ratio] 40.45 kg/m2 Jordan Duncan MD Work Phone: [facility] 03-27-2024 14:00-0400 Body weight 158.76 kg Jordan Duncan MD Work Phone: [facility] 03-27-2024 14:00-0400 Diastolic blood pressure 76 mm[Hg] Jordan Duncan MD Work Phone: [facility] 03-27-2024 14:00-0400 Heart rate 71 /min Jordan Duncan MD Work Phone: [facility] 03-27-2024 14:00-0400 SaO2% (BldA) [Mass fraction] 97 % Jordan Duncan MD Work Phone: [facility] 03-27-2024 14:00-0400 Systolic blood pressure 128 mm[Hg] Jordan Duncan MD Work Phone: [facility] 03-13-2024 09:41-0400 Body height 198.1 cm Brody Ibrahim DPM Work Phone: [facility] 03-13-2024 09:41-0400 Body mass index (BMI) [Ratio] 40.45 kg/m2 Brody Ibrahim DPM Work Phone: [facility] 03-13-2024 09:41-0400 Body weight 158.76 kg Brody Ibrahim DPM Work Phone: [facility] 12-05-2023 10:38-0400 Blood Pressure Location [facility] 12-05-2023 10:38-0400 Body temperature 98.6 [degF] Topherpeter SAAVED[facility] 12-05-2023 10:38-0400 Diastolic blood pressure 86 mm[Hg] Topher SAAVED[facility] 12-05-2023 10:38-0400 Heart rate 69 /min Topher SAAVED[facility] 12-05-2023 10:38-0400 Respiratory rate 16 /min Topher S[facility] 12-05-2023 10:38-0400 Systolic blood pressure 136 mm[Hg] Topher SAA[facility] 07-19-2023 10:37-0500 Body height 198.1 cm Brody Ibrahim DPM Work Phone: [facility] 07-19-2023 10:37-0500 Body mass index (BMI) [Ratio] 39.87 kg/m2 Brody Ibrahim DPM Work Phone: [facility] 07-19-2023 10:37-0500 Body weight 156.49 kg Brody Ibrahim DPM Work Phone: [facility] 06-20-2023 10:33-0500 Blood Pressure Location Topher [facility] 06-20-2023 10:33-0500 Diastolic blood pressure 86 mm[Hg] Topher SAAVED[facility] 06-20-2023 10:33-0500 Heart rate 70 /min Topher SAA[facility]ED[facility] 06-20-2023 10:33-0500 Respiratory rate 16 /min Topher S[facility] 06-20-2023 10:33-0500 Systolic blood pressure 139 mm[Hg] Topher S[facility] 11-05-2022 10:12-0400 Blood Pressure Location Topher S[facility] 11-05-2022 10:12-0400 Diastolic blood pressure 78 mm[Hg] Topher SAAVED[facility] 11-05-2022 10:12-0400 Heart rate 68 /min Topher SAAVED[facility] 11-05-2022 10:12-0400 Respiratory rate 16 /min Topher SAAVED[facility] 11-05-2022 10:12-0400 Systolic blood pressure 130 mm[Hg] Topher SAAVEDRA [facility] 11-03-2022 14:34-0400 Body temperature 97.5 [degF] Mthz Schedule [facility] 11-03-2022 14:34-0400 Diastolic blood pressure 77 mm[Hg] Mthz Schedule [facility] 11-03-2022 14:34-0400 Heart rate 72 /min Mthz Schedule [facility] 11-03-2022 14:34-0400 Respiratory rate 18 /min Mthz Schedule [facility] 11-03-2022 14:34-0400 Systolic blood pressure 140 mm[Hg] Mthz Schedule [facility] 06-18-2022 08:55-0500 Blood Pressure Location Topher SAAVED[facility] 06-18-2022 08:55-0500 Diastolic blood pressure 82 mm[Hg] Topher SAAVED[facility] 06-18-2022 08:55-0500 Heart rate 80 /min Top[facility] S[facility] 06-18-2022 08:55-0500 Respiratory rate 16 /min Top[facility] S[facility] 06-18-2022 08:55-0500 Systolic blood pressure 132 mm[Hg] Topher S[facility] 05-17-2022 09:43-0500 Blood Pressure Location Topher S[facility] 05-17-2022 09:43-0500 Diastolic blood pressure 92 mm[Hg] Topher SAA[facility] 05-17-2022 09:43-0500 Heart rate 63 /min Top[facility] S[facility] 05-17-2022 09:43-0500 Systolic blood pressure 143 mm[Hg] Topher S[facility] 02-01-2022 09:48-0400 Blood Pressure Location Topher S[facility] 02-01-2022 09:48-0400 Diastolic blood pressure 66 mm[Hg] Topher SAA[facility] 02-01-2022 09:48-0400 Heart rate 84 /min Topher SAAVED[facility] 02-01-2022 09:48-0400 Respiratory rate 16 /min Topher SAA[facility] 02-01-2022 09:48-0400 Systolic blood pressure 98 mm[Hg] Topher SAAVED[facility] 01-28-2022 13:48-0400 Diastolic blood pressure 76 mm[Hg] Mthz Lab Schedule [facility] 01-28-2022 13:48-0400 Heart rate 56 /min [facility] Lab Schedule [facility] 01-28-2022 13:48-0400 Respiratory rate 18 /min [facility] Schedule [facility] 01-28-2022 13:48-0400 Systolic blood pressure 135 mm[Hg] M[facility] Lab Schedule [facility] 01-28-2022 13:25-0400 Body temperature 97.39 [degF] Mthz Lab Schedule KITTY QUIROZ [facility] [employer] 10-22-2020 12:25-0400 Body temperature 97.81 [degF] Mthz Schedule [facility] [employer] Work Phone: 10-22-2020 12:25-0400 Heart rate 67 /min Mthz Schedule [facility] [employer] Work Phone: 07-27-2019 08:03-0500 Body Temperature 96.3 [degF] Mthz Schedule [employer] 07-27-2019 08:03-0500 BP Diastolic 80 mm[Hg] [facility] [place] 07-27-2019 08:03-0500 BP Systolic 129 mm[Hg] [facility] [place] [facility] [place] 07-27-2019 08:03-0500 Pulse (Heart Rate) 63 /min [facility] [place] 07-27-2019 08:03-0500 Respiratory Rate 20 /min [facility] [employer] 03-13-2019 08:02-0400 Body Temperature 96.69 [degF] [facility] [employer] 03-13-2019 08:02-0400 BP Diastolic 83 mm[Hg] [facility] [place] [facility] [place] 03-13-2019 08:02-0400 BP Systolic 162 mm[Hg] Mthz Schedule [facility] [employer] [place] , [place] 03-13-2019 08:02-0400 Pulse (Heart Rate) 74 /min [facility] Schedule [facility] [employer] [place] 03-13-2019 08:02-0400 Respiratory Rate 20 /min [facility] Schedule [employer] 01-12-2019 08:03-0400 Body Temperature 96.91 [degF] Mthz Schedule [employer] 01-12-2019 08:03-0400 BP Diastolic 87 mm[Hg] Mthz Schedule [place] , [place] 01-12-2019 08:03-0400 BP Systolic 152 mm[Hg] [facility] [place] [facility] [place] 01-12-2019 08:03-0400 Pulse (Heart Rate) 63 /min [facility] [place] [place] 01-12-2019 08:03-0400 Respiratory Rate 20 /min [facility] Schedule [facility], LATHA Encounters Encounter Date Encounter Type Care Provider Facility Start: 07-16-2024 End: 07-16-2024 ambulatory [facility] Start: 07-05-2024 End: 07-05-2024 ambulatory WILLI BOLIVARBRIAN [facility] Start: 07-05-2024 End: 07-05-2024 Subsequent hospital visit by physician [facility] Fast Track Chair 1 Schedule [facility] Comment on above: Polycythemia (Primar y Dx) Start: 06-18-2024 End: 06-18-2024 Telephone encounter Jordan Duncan MD Work Phone: [facility] Start: 05-22-2024 End: 05-22-2024 Clinisync Result Encounter Generic External Data Provider [facility] External Department Unsolicited Start: 05-22-2024 End: 05-22-2024 Clinisync Result Encounter Generic External Data Provider [facility] External Department Unsolicited Start: 05-21-2024 End: 05-21-2024 ambulatory Topher SAAVEDRA Facility:[facility] Start: 05-21-2024 End: 05-21-2024 Patient encounter procedure Topher SAAVEDRA [facility] Start: 05-15-2024 End: 05-15-2024 ambulatory BRODY IBRAHIM Not Available Start: 05-15-2024 End: 05-15-2024 Postop follow up visit related to original px Brody Ibrahim DPM Work Phone: [facility] Comment on above: Diabetic polyneuropa thy [...] Unsolicited Start: 05-08-2024 ambulatory Topher SAAVEDRA Facili ty:[facility] Start: 05-02-2024 End: 05-02-2024 ambulatory PAUL [facility] Start: 04-23-2024 End: 04-23-2024 Bamboo flowsheet Brody Ibrahim DPM Work Phone: [facility] Start: 04-23-2024 End: 04-23-2024 Bamboo flowsheet Brody Ibrahim DPM Work Phone: [facility] Start: 04-23-2024 End: 04-23-2024 ambulatory BRODY IBRAHIM Not Available Start: 04-23-2024 End: 04-23-2024 Patient encounter procedure Topher SAAVEDRA [facility] Comment on above: Diabetic polyneuropa thy associated with type 2 diabetes mellitus (CMS/HCC) (Primary Dx); Nontraumatic amputation of foot, left (CMS/HCC); Nontraumatic amputation of foot, right (CMS/HCC) Start: 04-09-2024 End: 04-09-2024 Telephone encounter Brody Ibrahim DPM Work Phone: [facility] Comment on above: Advice Only (orthoti cs) Start: 03-29-2024 End: 03-29-2024 Bamboo flowsheet Brody Ibrahim DPM Work Phone: [facility] Start: 03-29-2024 End: 03-29-2024 Bamboo flowsheet Brody Ibrahim DPM Work Phone: [facility] Start: 03-29-2024 End: 03-29-2024 Postop follow up visit related to original px Brody Ibrahim DPM Work Phone: [facility] Comment on above: Diabetic polyneuropa [...] (CMS/HCC); Microalbuminuria; Essential hypertension (CMS/HCC); Mixed hyperlipidemia (CMS/HCC); Adverse reaction to statin medication; Former smoker; Morbid obesity (CMS/HCC) Start: 03-27-2024 End: 03-27-2024 ambulatory JORDAN DUNCAN Not Available Start: 03-27-2024 End: 03-27-2024 ambulatory Topher SAAVEDRA Facility:[facility] Start: 03-27-2024 End: 03-27-2024 Patient encounter procedure Topher SAAVEDRA [facility] Start: 03-13-2024 End: 03-13-2024 Bamboo flowsheet Brody Ibrahim DP Work Phone: [facility] Start: 03-13-2024 End: 03-13-2024 Bamboo flowsheet Brody Ibrahim DPM Work Phone: [facility] Start: 03-13-2024 End: 03-13-2024 Patient encounter procedure Brody Ibrahim DPM Work Phone: [facility] Comment on above: Acquired keratoderma (Primary Dx); Diabetic polyneuropathy associated with type 2 diabetes mellitus (CMS/HCC); Nontraumatic amputation of foot, left (CMS/HCC); Nontraumatic amputation of foot, right (CMS/HCC) Start: 03-13-2024 End: 03-13-2024 ambulatory BRODY IBRAHIM Not Available Start: 03-01-2024 End: 03-01-2024 ambulatory JORDAN DUNCAN [facility] Start: 02-27-2024 End: 02-27-2024 ambulatory Topher SAAVEDRA Facility:[facility] [place] Start: 02-27-2024 End: 02-27-2024 Patient encounter procedure Topher SAAVEDRA [facility] Start: 01-31-2024 End: 01-31-2024 ambulatory Fernanda Pennch Facility:[facility] [place] Start: 01-31-2024 End: 01-31-2024 Patient encounter procedure Fernanda X Orzech [facility] Start: 01-10-2024 End: 01-10-2024 ambulatory BRODY IBRAHIM Not Available Start: 01-03-2024 End: 01-03-2024 ambulatory Topher SAAVEDRA Facility:[facility] [place] Start: 12-06-2023 End: 12-06-2023 ambulatory BRODY IBRAHIM Not Available Start: 12-05-2023 End: 12-05-2023 ambulatory Topher SAAVEDRA Facility:[facility] [place] Start: 12-05-2023 End: 12-05-2023 Patient encounter procedure Topher rOdoñez SAAVEDRA [facility] Start: 11-09-2023 End: 11-09-2023 ambulatory JORDAN DUNCAN [facility] Start: 11-07-2023 End: 11-07-2023 ambulatory Topher R KERI Facility:[facility] [place] Start: 11-07-2023 End: 11-07-2023 Patient encounter procedure Topher Ordoñez SAAVEDRA [facility] Start: 10-27-2023 End: 10-27-2023 ambulatory JORDAN DUNCAN Not Available Start: 10-12-2023 End: 10-12-2023 ambulatory JORDAN Brown MAICOLENOC Not Available Start: 10-07-2023 End: 10-07-2023 ambulatory Topher Smita KERI Facility:[facility] [place] Start: 10-07-2023 End: 10-07-2023 Patient encounter procedure Topher SAAVEDRA [facility] Start: 09-27-2023 End: 09-27-2023 ambulatory BRODY IBRAHIM Not Available Start: 09-09-2023 End: 09-09-2023 ambulatory Topher R KERI Facility:[facility] [place] Start: 09-09-2023 End: 09-09-2023 Patient encounter procedure Topher R KERI [facility] Start: 08-15-2023 End: 08-15-2023 ambulatory Topher R SAAVEDRA Facility:[facility] [place] Start: 08-15-2023 End: 08-15-2023 Patient encounter procedure Topherpeter SAAVEDRA [facility] Start: 07-19-2023 Bamboo flowsheet Brody Tyler er DPM Work Phone: [facility] Start: 07-19-2023 Bamboo flowsheet Brody Tyler er DPM Work Phone: [facility] Start: 07-19-2023 End: 07-19-2023 ambulatory BRODY IBRAHIM Not Available Start: 07-19-2023 End: 07-19-2023 Patient encounter procedure Brody Ibrahim DPM Work Phone: [facility] Comment on above: Dermatophytosis of n ail (Primary Dx); Dystrophic nail; Diabetic polyneuropathy associated with type 2 diabetes mellitus (CMS/HCC); Nontraumatic amputation of foot, right (CMS/HCC); Nontraumatic amputation of foot, left (CMS/HCC); Acquired keratoderma Start: 07-18-2023 End: 07-18-2023 ambulatory Topher SAAVEDRA Facility:[facility] Start: 07-18-2023 End: 07-18-2023 Patient encounter procedure Topher SAAVEDRA [facility] Start: 06-20-2023 End: 06-20-2023 ambulatory Topher SAAVEDRA Facility:[facility] Start: 06-20-2023 End: 06-20-2023 Patient encounter procedure Topher SAAVEDRA [facility] Start: 05-09-2023 End: 05-09-2023 Patient encounter procedure Topher SAAVEDRA [facility] Start: 04-04-2023 End: 04-04-2023 Patient encounter procedure Topher SAAVEDRA [facility] Start: 02-08-2023 End: 02-08-2023 Patient encounter procedure JORDAN DUNCAN [facility] Start: 01-03-2023 End: 01-03-2023 Patient encounter procedure Topher SAAVEDRA [facility] Start: 12-03-2022 End: 12-03-2022 Patient encounter procedure Topher SAAVEDRA [facility] Start: 11-05-2022 End: 11-05-2022 Patient encounter procedure Topher SAAVEDRA [facility] [email or web address] Start: 11-03-2022 End: 11-03-2022 Subsequent [facility] Schedule [facility] Comment on above: Polycythemia (Primar y Dx) Start: 10-25-2022 End: 10-26-2022 ambulatory ARNOLD PEOPLES Facility:[facility] Start: 10-05-2022 End: 10-06-[address] JORDAN DUNCAN . Facility:[facility] Start: 10-05-2022 End: 10-05-2022 Patient encounter procedure Topher SAAVEDRA [facility] Start: 09-30-2022 End: 09-30-[address] TOPHER SAAVEDRA . Facility:[facility] Start: 09-27-2022 End: 09-28-2022 ambulatory ARNOLD PEOPLES Facility:[facility] Start: 09-20-2022 End: 09-21-2022 ambulatory ENEDINA HARGROVE Facility:[facility] Start: 09-20-2022 Encounter for preprocedural cardiovascular examination DR TOPHER SAAVEDRA . [facility] Start: 09-20-2022 Encounter for preprocedural laboratory examination DR TOPHER SAAVEDRA . [facility] Start: 09-20-2022 Encounter for preprocedural respiratory examination DR TOPHER SAAVEDRA . [facility] Start: 09-15-2022 End: 09-16-[address] TOPHER SAAVEDRA . Facility:[facility] Start: 09-15-2022 End: 09-16-2022 Encounter for preprocedural laboratory examination DR TOPHER SAAVEDRA . Facility:[facility] Start: 09-06-2022 End: 09-06-2022 Patient encounter procedure Topher SAAVEDRA [facility] Start: 06-18-2022 End: 06-18-2022 Patient encounter procedure Topher SAAVEDRA [facility] Start: 05-20-2022 End: 05-21-2022 ambulatory ENEDINA Schultz [facility] Facility:[facility]1 Start: 05-17-2022 End: 05-17-2022 Patient encounter procedure Topher SAAVEDRA [facility] Start: 04-21-2022 End: 04-22-2022 ambulatory [facility] Facility:[facility] Start: 04-21-2022 End: 04-21-2022 Patient encounter procedure Mandy Schaefer [facility] Start: 04-09-2022 End: 04-10-2022 ambulatory [facility] Facility:[facility] Start: 03-31-2022 End: 03-31-2022 Patient encounter procedure Mandy Schaefer [facility] Start: 03-22-2022 End: 03-23-2022 ambulatory [facility] Facility:[facility] Start: 03-03-2022 End: 03-03-2022 Patient encounter procedure Mandy Schaefer [facility] Start: 02-01-2022 End: 02-01-2022 Patient encounter procedure Topher SAAVEDRA [facility] Start: 01-28-2022 End: 01-28-2022 Subsequent hospital visit by physician [facility] Comment on above: Polycythemia (Primar y Dx) Start: 01-18-2022 End: 01-18-[address] JORDAN DUNCAN . Facility:[facility] Start: 01-06-2022 End: 01-07-2022 ambulatory ENEDINA HARGROVE Facility:[facility] Start: 12-21-2021 End: 12-21-2021 Patient encounter procedure Topher SAAVEDRA [facility] Start: 11-23-2021 End: 11-23-2021 Patient encounter procedure Topher SAAVEDRA [facility] Start: 10-26-2021 End: 10-26-2021 Patient encounter procedure Topher SAAVEDRA [facility] Start: 09-28-2021 End: 09-28-2021 Patient encounter procedure Topher SAAVEDRA [facility] Start: 08-31-2021 End: 08-31-2021 Patient encounter procedure Topher SAAVEDRA [facility] Start: 10-22-2020 End: 10-22-2020 Subsequent hospital visit by physician [facility] Med Onc Room 9 Schedule [facility] Comment on above: Polycythemia (Primar y Dx) Start: 07-27-2019 End: 07-27-2019 Subsequent hospital visit by physician [facility] Med Onc Room 9 Schedule [facility] Comment on above: Polycythemia (Primar y Dx) Start: 03-13-2019 End: 03-13-2019 Subsequent hospital visit by physician [facility] Med Onc Room 9 Schedule [facility] Comment on above: Polycythemia (Primar y Dx) Start: 01-12-2019 End: 01-12-2019 Subsequent hospital visit by physician [facility] Med Onc Room 9 Schedule [facility] Start: 02-16-2018 End: 02-17-2018 Patient encounter DEFAULT PHYSICIAN Facility:[facility] Procedures Date Procedure Procedure Detail Performing [...] disease S/P JORY - LCX & RCA ([id number] kabour) [facility] Schedule BACK SURGERY Topher SAAVEDRA Placement of stent Topher [facility]SE[facility]ER[facility] RECTAL CANCER SURGERY Agustin SAAVEDRA RIGHT VEIN REMOVED F ROM LEG Topher SAAVEDRA Plan of Treatment Date Care Activity Detail Author Start: 12-17-2030 Screening for malignant neoplasm of colon [facility] Start: 09-29-2025 Glaucoma screening Diabetes: Retinopathy Screening [facility] Start: 02-21-2025 GFR test (Diabetes, CKD 3-4, OR last GFR 15-59) GFR test (Diabetes, CKD 3-4, OR last GFR 15-59) [facility] Start: 10-26-2024 End: 10-26-2024 Patient encounter procedure 10/26/2024 1:00 PM EDT Appointment [facility] [address] [place] [id number] phlebotomy [facility] Comment on above: phlebotomy Start: 10-17-2024 End: 10-17-2024 Patient encounter procedure 10/17/2024 1:00 PM EDT Office Visit [facility] [address] [place] [address] Newton Stevenson MD [address] [place] [address] F/U polycythemia, anal cancer [facility] Comment on above: F/U polycythemia, anal cancer Start: 10-04-2024 Urine screening for protein Diabetes: Urine Protein Screening [facility] Start: 09-18-2024 End: 09-18-2024 Patient encounter procedure [facility] Start: 08-25-2024 End: 03-27-2025 Comprehensive metabolic 2000 panel - Serum or Plasma Comprehensive metabolic panel Lab Routine Type 2 diabetes mellitus with diabetic polyneuropathy, without long-term current use of insulin ([facility]) Essential hypertension ([facility]) Expected: 08/25/2024, Expires: 03/27/2025 [facility] Work Phone: Comment on above: Expected: 08/25/2024, Expires: Start: 08-25-2024 End: 03-27-2025 Hemoglobin A1c/Hemoglobin.total in Blood Hemoglobin A1c Lab Routine Type 2 diabetes mellitus with diabetic polyneuropathy, without long-term current use of insulin ([facility]/HCC) Expected: 08/25/2024, Expires: 03/27/2025 [facility] Comment on above: Expected: 08/25/2024, Expires: Start: 08-25-2024 End: 03-27-2025 Lipid 1996 panel - Serum or Plasma Lipid panel Lab Routine Mixed hyperlipidemia ([facility]/HCC) Expected: 08/25/2024, Expires: 03/27/2025 [facility] Comment on above: Expected: 08/25/2024, Expires: Start: 06-21-2024 Hemoglobin A1c measurement Diabetes: Hemoglobin A1C [facility] Start: 05-17-2024 Medicare Annual Wellness (AWV) Medicare Annual Wellness (AWV) [facility] Start: 05-15-2024 End: 05-15-2024 Patient encounter procedure 05/15/2024 10:15 AM EST Office Visit [facility] [address] [place] [phone] Brody Ibrahim, KATLIN [address] [place] [address] [facility] Start: 04-23-2024 End: 04-23-2024 Patient encounter procedure 04/23/2024 11:00 AM EST Office Visit [facility] [address] [place] [phone] Brody Ibrahim DPM [address] [place] [address] [facility] Start: 04-09-2024 End: 04-09-2024 Patient encounter procedure 04/09/2024 9:30 AM EST Office Visit [facility] [address] [address] Jordan Duncan MD [address] [place] [address] [facility] Start: 03-29-2024 End: 03-29-2024 Patient encounter procedure 03/29/2024 1:00 PM EDT Office Visit [facility] [address] [place] [phone] Brody Ibrahim DPM [address] [place] [address] Arrived [facility] Comment on above: Arrived Start: 03-27-2024 End: 03-27-2024 Patient encounter procedure 03/27/2024 2:00 PM EDT Office Visit [facility] [address] [place] [address] Jordan Duncan MD [address] [place] [address] (Fax) Type 2 diabetes mellitus with diabetic [...] procedure 03/13/2024 9:45 AM EDT Office Visit [facility] [address] [place] [phone] Brody Ibrahim DPM [address] [place] [address] Arrived [facility] Comment on above: Arrived Start: 02-05-2024 COVID-19 Vaccine ( season) COVID-19 Vaccine ( season) [facility] Start: 02-05-2024 Influenza vaccination Influenza Vaccine (#1) [facility] Start: 01-05-2024 Hemoglobin A1c measurement Diabetes: Hemoglobin A1C [facility] Start: 11-26-2023 Glaucoma screening Diabetes: Retinopathy Screening [facility] Start: 10-29-2023 GFR test (Diabetes, CKD 3-4, OR last GFR 15-59) GFR test (Diabetes, CKD 3-4, OR last GFR 15-59) [facility] Start: 10-26-2023 End: 10-26-2023 Patient encounter procedure 10/26/2023 Office Visit Oncology Newton Stevenson MD [address] [place] [address] [facility] Start: 10-12-2023 End: 10-12-2023 Patient encounter procedure 10/12/2023 9:30 AM EDT Office Visit [facility] [address] [place] [address] Jordan Duncan MD [address] [place] [address] (Fax) [facility] Start: 09-27-2023 End: 09-27-2023 Patient encounter procedure 09/27/2023 11:00 AM EDT Procedure Visit [facility] [address] [place] [phone] Brody Ibrahim DPArin [address] [place] [address] [facility] Start: 07-14-2023 Hemoglobin A1c measurement Diabetes: Hemoglobin A1C [facility] Start: 05-02-2023 Annual Wellness Visit (Medicare) Annual Wellness Visit (Medicare) [facility] Start: 10-20-2022 End: 10-20-2022 Patient encounter procedure 10/20/2022 Office Visit Oncology Newton Stevenson MD [address] [place] [address] [facility] Start: 09-24-2022 Hemoglobin A1c measurement A1C test (Diabetic or Prediabetic) [facility] Start: 02-04-2022 Influenza vaccination Flu vaccine (#1) [facility] Start: 11-11-2021 Urine screening for protein [facility] Start: 10-21-2021 End: 10-21-2021 Patient encounter procedure 10/21/2021 Office Visit Oncology Newton Stevenson MD [address] [place] [address] [facility] Start: 10-16-2021 COVID-19 Vaccine (4 - Booster for Pfizer series) COVID-19 Vaccine (4 - Booster for Pfizer series) [facility] Start: 10-14-2021 Lipid panel Lipids [facility] Start: 10-24-2019 End: 10-24-2019 Office Visit [facility] Start: 07-31-2019 End: 07-31-2019 Appointment 07/31/2019 Appointment Infusion Therapy [facility] Start: 04-30-2019 End: 04-30-2019 Appointment 04/30/2019 Appointment Infusion Therapy [facility] Start: 02-04-2019 Influenza vaccination Flu vaccine (#1) [place], [place] Start: 11-26-2018 Annual Wellness Visit (AWV) Annual Wellness Visit (AWV) [facility] Start: 08-17-2017 Creatinine measurement Creatinine monitoring [facility] [employer] Work Phone: Start: 08-17-2017 Creatinine monitoring Creatinine monitoring [place], [place] Start: 08-17-2017 Potassium monitoring Potassium monitoring [place], [place] Start: 08-04-2017 A1C test (Diabetic or Prediabetic) A1C test (Diabetic or Prediabetic) [place] Start: 08-04-2017 Hemoglobin A1c measurement A1C test (Diabetic or Prediabetic) [facility] Start: 02-10-2017 Abdominal aortic aneurysm screening AAA screen [facility] Start: 02-10-2017 Pneumococcal 65+ years Vaccine (1 of 2 - PCV13) Pneumococcal 65+ years Vaccine (1 of 2 - PCV13) [place], [place] Start: 01-29-2017 Shingles Vaccine (2 of 3) Shingles Vaccine (2 of 3) [facility] Start: 02-10-2015 Annual Wellness Visit (AWV) Annual Wellness Visit (AWV) [place] Start: 2012 Respiratory Syncytial Virus (RSV) or age 60 yrs+ (1 - Risk 60-74 years 1-dose series) Respiratory Syncytial Virus (RSV) or age 60 yrs+ (1 - Risk 60-74 years 1-dose series) [facility] Start: 02-10-2002 Colon cancer screen colonoscopy Colon cancer screen colonoscopy [place], [place] Start: 02-10-2002 Screening for malignant neoplasm of colon Colon cancer screen colonoscopy [facility] Work Phone: Start: 02-10-2002 Shingles Vaccine (1 of 2) Shingles Vaccine (1 of 2) [place], [place] Start: 02-10-1997 Screening for malignant neoplasm of colon [facility] Start: 02-10-1971 DTaP/Tdap/Td vaccine (1 - Tdap) DTaP/Tdap/Td vaccine (1 - Tdap) [facility] Start: 02-10-1971 Hepatitis B vaccine (1 of 3 - Risk 3-dose series) Hepatitis B vaccine (1 of 3 - Risk 3-dose series) [place] Start: 02-10-1970 Diabetic microalbuminuria test Diabetic microalbuminuria test [place] Start: 02-10-1970 Diabetic retinal exam Diabetic retinal exam [facility] Start: 02-10-1970 Glaucoma screening Diabetic retinal exam [facility] Start: 02-10-1970 Hepatitis C screening Hepatitis C screen [facility] Start: 02-10-1970 Urine screening for protein Diabetic Alb to Cr ratio (uACR) test [facility] Start: 1964 Depression Screen Depression Screen [facility] Start: 02-10-1963 DTaP/Tdap/Td vaccine (1 - Tdap) DTaP/Tdap/Td vaccine (1 - Tdap) [place], [place] Start: 02-10-1962 [object Object] Diabetic foot exam [place] Start: 02-10-1962 Diabetic foot examination Diabetic foot exam [facility] Start: 02-10-1962 Diabetic retinal exam Diabetic retinal exam [place], [place] Start: 02-10-1962 Lipid panel [facility] Start: 02-10-1962 Lipid screen Lipid screen [place], [place] Start: 1952 Annual Wellness Visit (AWV) Annual Wellness Visit (AWV) [facility] Start: 1952 Hepatitis C screen Hepatitis C screen [facility] [place] Start: 1952 Hepatitis C screening Hepatitis C screen [facility] Work Phone: Start: 1952 Screening for malignant neoplasm of colon [facility] End: 07-05-2024 Phlebotomy therapeutic Phlebotomy therapeutic Procedures Routine One Time for 1 Occurrences starting 07/05/2024 until 07/05/2024 [employer] Work Phone: Comment on above: One Time for 1 Occurrences starting 06/08 until 07/05/2024 Immunizations Immunization Date Immunization Notes Care Provider [facility] 03-28-2024 influenza, seasonal, injectable Brody Ibrahim DPM Work Phone: [facility] 03-28-2024 Seasonal trivalent influenza vaccine, adjuvanted, preservative free Brody Ibrahim DPM Work Phone: [facility] 02-28-2023 influenza virus vacc ine, unspecified formulation Topher SAAVEDRA [facility] 02-28-2023 Influenza, Seasonal, Quadrivalent, Adjuvanted Brody Ibrahim DPM Work Phone: [facility] 04-16-2022 influenza virus vacc ine, unspecified formulation Topher SAAVEDRA [facility] 04-16-2022 Influenza, Seasonal, Quadrivalent, Adjuvanted Brody Ibrahim DPM Work Phone: [facility] 03-23-2022 Moderna Bivalent Simmons ster Vaccination Brody Ibrahim DPM Work Phone: [facility] 03-23-2022 Moderna SARS-CoV-2 50mcg/0.5mL Booster Brody Ibrahim DPM Work Phone: [facility] 03-23-[address] 12 Years And Older Brody Ibrahim DPM Work Phone: [facility] 03-23-2022 SARS-CoV-2 (COVID-19 ) [id number] Topher SAAVEDRA [facility] 06-18-2021 SARS-CoV-2 (COVID-19 ) mRNA BNT-162b2 vax Topher SAAVEDRA [facility] 05-06-2021 influenza virus vacc ine, unspecified formulation Topher SAAVEDRA [facility] 05-06-2021 Influenza, Seasonal, Quadrivalent, Adjuvanted Brody Ibraihm DPM Work Phone: [facility] 05-06-2021 SARS-CoV-2 (COVID-19 ) Ad26 vaccine, recombinant Topher SAAVEDRA [facility] 08-28-2020 SARS-CoV-2 (COVID-19 ) mRNA BNT-162b2 vax Topher SAAVEDRA [facility] 08-28-2020 SARS-CoV-2, Unspecified Garry Ibrahim DPM Work Phone: [facility] 08-27-2020 Pfizer Purple Cap SARS-CoV-2 Vaccination Brody Ibrahim DPM Work Phone: [facility] 08-08-2020 SARS-CoV-2 (COVID-19 ) mRNA BNT-162b2 vax Topher SAAVEDRA [facility] Comment on above: Result Comment: 2022: [id number] 08-08-2020 SARS-CoV-2, Unspecified Garry Ibrahim DPM Work Phone: [facility] 08-07-2020 Pfizer Purple Cap SARS-CoV-2 Vaccination Brody Ibrahim DPM Work Phone: [facility] 08-04-2020 SARS-CoV-2 (COVID-19 ) Ad26 vaccine, recombinant Topher SAAVEDRA [facility] 03-22-2020 influenza virus vacc ine, unspecified formulation Topher SAAVEDRA [facility] 03-22-2020 Influenza, Seasonal, Quadrivalent, Adjuvanted Brody Rusher DPM Work Phone: [facility] 03-06-2019 pneumococcal conjuga te vaccine, 13 valent Topher SAAVEDRA [facility] 03-05-2019 influenza virus vacc ine, unspecified formulation Topher SAAVEDRA [facility] 03-05-2019 influenza, high dose seasonal, preservative-free Brody Rusher DPM Work Phone: [facility] 03-05-2019 pneumococcal polysaccharide vaccine, 23 valent Topher SAAVEDRA [facility] 03-04-2019 Influenza, High-dose Seasonal, Quadrivalent, Preservative Free Brody Rusher DPM Work Phone: [facility] 03-04-2019 pneumococcal polysaccharide vaccine, 23 valent Brody Rusher DPM Work Phone: [facility] 03-03-2018 influenza virus vacc ine, unspecified formulation Topher SAAVEDRA [facility] of [facility] 03-03-2018 influenza, high dose seasonal, preservative-free Brody Rusher DPM Work Phone: [facility] 03-03-2018 pneumococcal conjuga te vaccine, 13 valent Topher SAAVEDRA [facility] 03-03-2018 pneumococcal polysaccharide vaccine, 23 valent Brody Rusher DPM Work Phone: [facility] 03-02-2018 pneumococcal conjuga te vaccine, 13 valent Brody Ibrahim DPM Work Phone: [facility] 04-06-2017 influenza virus vacc ine, unspecified formulation Topher SAAVEDRA [facility] 04-06-2017 influenza, injectabl e, quadrivalent, preservative free Brody Ibrahim DPM Work Phone: [facility] 12-04-2016 pneumococcal polysaccharide vaccine, 23 valent Topher SAAVEDRA [facility] 12-04-2016 zoster vaccine, live Topher SAAVEDRA [facility] 03-06-2016 Influenza Vaccine, unspecified formulation Mthz Schedule [facility] 03-06-2016 influenza virus vacc ine, H5N1, A/[place]/ (national stockpile) Brody Ibrahim DPM Work Phone: [facility] 03-06-2016 influenza virus vacc ine, unspecified formulation Brody Ibrahim DPM Work Phone: [facility] 03-06-2016 Influenza, High-dose Seasonal, Quadrivalent, Preservative Free Brody Ibrahim DPM Work Phone: [facility] 03-06-2016 influenza, unspecifi ed formulation Topher SAAVEDRA [facility] 01-23-2016 influenza virus vacc ine, unspecified formulation Topher SAAVEDRA [facility] 01-23-2016 influenza, injectabl e, quadrivalent, preservative free Brody Ibrahim DPM Work Phone: [facility] 06-06-2015 pneumococcal polysaccharide vaccine, 23 valent Topher SAAVEDRA [facility] 03-23-2014 influenza virus vacc ine, unspecified formulation Topher SAAVEDRA [facility] 03-23-2014 influenza, seasonal, injectable Brody Ibrahim DPM Work Phone: [facility] 04-06-2013 influenza virus vacc ine, unspecified formulation Topher SAAVEDRA [facility] 04-06-2013 influenza, seasonal, injectable Brody Alexandria DPM Work Phone: [facility] 04-06-2013 zoster vaccine, live Topher SAAVEDRA [facility] 04-05-2013 zoster vaccine, live Brody Rusher DPM Work Phone: [facility] 04-21-2009 novel influenza-H1N1 -09, preservative-free, injectable Brody Hectorher DPM Work Phone: [facility] Payers Date Payer Category Payer Private Health Insurance [id number] mber [id number] 2022 Unknown 2017 Medicare [id number] 2017 Medicare xxxxxxxxxxx [id number] 1959 Medicare [id number] [id number] .[id number] 1959 Private Health Insurance [id number] 1.2.840.099361.1.13.239.2 .7.3.193432.315 1952 Unknown [id number] 2.16.840.1.412847.3.579.2 .593 1952 Unknown [id number] 2.16.840.1.857618.3.579.2 .593 1952 Unknown [id number] 2.16.840.1.983249.3.579.2 .593 1952 Unknown [id number] 2.16.840.1.838795.3.579.2 .593 1952 Unknown [id number] 2.16.840.1.984974.3.579.2 .593 1952 Unknown [id number] 2.16.840.1.210585.3.579.2 .593 1952 Unknown [id number] 2.16.840.1.554636.3.579.2 .593 1952 Unknown [id number] 2.16.840.1.824626.3.579.2 .593 1952 Unknown [id number] 2.16.840.1.017340.3.579.2 .593 1952 Unknown [id number] 2.16.840.1.744356.3.579.2 .593 1952 Unknown [id number] 2.16.840.1.367765.3.579.2 .593 1952 Unknown [id number] 2.16.840.1.202731.3.579.2 .593 1952 Unknown [id number] 2.16.840.1.453259.3.579.2 .1259 1952 Unknown [id number] 2.16.840.1.212495.3.579.2 .1259 1952 Unknown [id number] 2.16.840.1.830824.3.579.2 .1258 1952 Unknown [id number] 2.16.840.1.556379.3.579.2 .1258 1952 Unknown [id number] 2.16.840.1.088666.3.579.2 .1258 1952 Unknown [id number] 2.16.840.1.856735.3.579.2 .1258 1952 Unknown [id number] 2.16.840.1.232743.3.579.2 .1258 1952 Unknown [id number] 2.16.840.1.874726.3.579.2 .1258 1952 Unknown [id number] 2.16840.1.521676.3.579.2 .1258 1952 Unknown [id number] 2.16.840.1.985475.3.579.2 .1258 1952 Unknown [id number] 2.16.840.1.216233.3.579.2 .1258 1952 Unknown [id number] 2.16.840.1.451085.3.579.2 .1952 Unknown [id number] 2.16840.1.559021.3.579.2 .1952 Unknown [id number] 2.16.840.1.700637.3.579.2 .1952 Unknown [id number] 2.16.840.1.361404.3.579.2 .1952 Unknown [id number] 2.16.840.1.706120.3.579.2 .1952 Unknown [id number] 2.16.840.1.455229.3.579.2 .1952 Unknown [id number] 2.16.840.1.171185.3.579.2 .727 1952 Unknown [id number] 2.16.840.1.483400.3.579.2 .727 1952 Unknown [id number] 2.16.840.1.741666.3.579.2 .727 1952 Unknown [id number] 2.16.840.1.349072.3.579.2 .727 1952 Unknown [id number] 2.16.840.1.656086.3.579.2 .727 1952 Unknown [id number] 2.16.840.1.358683.3.579.2 .727 1952 Unknown [id number] 2.16.840.1.974528.3.579.2 .727 1952 Unknown [id number] 2.16.840.1.835583.3.579.2 .727 1952 Unknown [id number] 2.16.840.1.660556.3.579.2 .727 1952 Unknown [id number] 2.16.840.1.463053.3.579.2 .173 1952 Unknown [id number] 2.16.840.1.278886.3.579.2 .173 1952 Unknown [id number] 2.16.840.1.462219.3.579.2 .173 Medicare [id number] Social History Date Type Detail Facility Start: 10-18-2018 End: 11-02-2023 Tobacco smoking status NHIS Former smoker [place] Start: 08-31-1979 End: 06-06-2012 History of tobacco use Current smoker [place] Start: 10-18-2018 End: 11-02-2023 Cigarettes smoked current (pack per day) - Reported [facility] Start: 10-18-2018 End: 11-02-2023 Alcohol intake No [place] Start: 01-23-2014 End: 11-02-2023 [facility] 1950 [facility] Start: 10-18-2018 End: 11-02-2023 Alcohol intake Current non-drinker of alcohol (finding) [facility] Start: 10-22-2020 End: 11-02-2023 Tobacco use and exposure Never used [facility] [employer] Start: 01-18-2022 End: 01-28-2022 Exposure to SARS-CoV-2 (event) Not sure [facility] [employer] Start: 08-31-1979 End: 06-06-2012 History of tobacco use Cigarette Smoker [facility] [employer] Work Phone: Start: 05-17-2023 End: 05-15-2024 Alcohol [...] Healthcare Functional Status Date Assessment Result Facility 05-21-2024 Functional Status N/A [facility] 12-05-2023 Functional Status N/A [facility] 06-20-2023 Functional Status N/A [facility] 11-05-2022 Functional Status N/A [facility] 06-18-2022 Functional Status N/A [facility] 05-17-2022 Functional Status N/A [facility] 02-01-2022 Functional Status N/A [facility] Clinical Notes 10-22-2020 to 07-16-2024 Luh Hoffman RN - 07/05/2024 1:00 PM ESTTelephone Encounter - Jordan Duncan MD - 06/18/2024 7:50 AM ESTTelephone Encounter - Jordan Duncan MD - 06/18/2024 7:50 AM ESTPatient Instructions Note Date & Type Note Facility 07-16-2024 Note [place] [facility] Subjective Juan Miguel Jennings is a 74 y.o. year old male patient being seen for 3 mo follow up CAD. Stress test, echo, and lipid panel were all done in May 2024. He was started on isosorbide and amlodipine last month by Dianne Clemons CNP. Patient called the office last week c/o myalgias, fatigue, and dizziness after starting those medications. He was advised by Dianne to hold amlodipine to see if that helped symptoms. Patient says he was still dizzy with just taking isosorbide so he stopped both medications. Says the dizziness usually goes away by noon or so. Says the myalgias resolved once he stopped those 2 medications also. Patient Active Problem List Diagnosis Coronary arteriosclerosis [...] of colon cancer Testicular hypofunction Hx of alf use of blood thinners Internal derangement of [...] 2 diabetes mellitus with neurologic complication (CMS/HCC) OAB (overactive bladder) Family History Problem Relation Name Age of [...] of Dr Alicia Santillan. He is a 74 yo man with prior history of CAD, s/p MT and stenting procedures in the past. He had cataract surgery in February 2020 with no issues. He has sleep apnea and has a CPAP machine. He had ulcers in his feet that are now healed. ABIs 03/04/2020 showed normal arterial evaluation of the bilateral lower extremities without hemodynamic impairment at rest. He has history of rectal cancer s/p surgery and chemotherapy and radiation. he was evaluated in our office on 05/02/2024 by AUGUSTO Clemons due to worsening fatigue symptoms and an echocardiogram and a stress test were ordered which were nonrevealing. He was started on isosorbide mononitrate and amlodipine and he eventually stopped due to not feeling well with those medications. He is intolerant to statins and ezetimibe. I had him in the past on pravastatin. This was then shifted to rosuvastatin and he did not tolerate either. At visit of February 2021 I started him on ezetimibe and he could not tolerate that either. Today he reports that he has been doing reasonably well. His blood pressure has been controlled. He has no chest pain. He has no dyspnea on exertion. He has no palpitations. He has no leg swelling. He has no claudication. His main issue is neuropathy and balance issues. Review of Systems Constitutional: Positive for malaise/fatigue. Musculoskeletal: Positive for arthritis, back pain and joint pain. Neurological: Positive for dizziness, headaches and loss of balance. Objective Visit Vitals BP 130/78 (BP Location: Left arm, Patient Position: Sitting) Pulse 75 Ht 1.981 m (6' 6 ) Wt (!) 157 kg (347 lb) SpO2 94% BMI 40.10 kg/m??? Smoking Status Every Day BSA 2.94 m??? Physical Exam Constitutional: Appearance: He is [...] right side and 2+ on the left s (more content not included)... [facility] 07-05-2024 History of Present illness Narrative Pt [...] Denies any dizziness. documented in this encounter [facility] 06-18-2024 Telephone encounter Note Prescription sent [facility] 06-18-2024 Miscellaneous Notes Prescription sent Bret left a message requesting a refill on his Famotidine to [facility] in [place]. documented in this encounter [facility] 06-18-2024 Telephone encounter Note Bret left a message requesting a refill on his Famotidine to [facility] in [place]. [facility] 06-08-2024 Note Application for [email or web address] filled out for patient. Requires patient signature. Will notify Cardiology support manager to coordinate signature by patient. Application uploaded to media. Patient will come to Cardiology clinic to sign. Iron Bess PharmD Cardiology Outpatient Clinical Pharmacist 06/14/24 [facility] 06-08-2024 Note Contacted patient to discuss lipids management. Reviewed mechanism of action, side effects, and administration of Repatha with patient; pt agreeable to start. Will send RX to assess costs. Of note, pt may qualify for patient assistance foundation. Will fill out paperwork and send to Cardiology to assist in obtaining signature and income documents. Iron Bess PharmD Cardiology Outpatient Clinical Pharmacist 06/11/24 [facility] 06-08-2024 Note [facility]ids Provider: Dr. Huddleston Department: Cardiology Juan Miguel Jennings is a 74 y.o. male with PMH of CAD s/p MT and stents, HTN, HLD, [place] w/ CPAP, [...] lipid panel. Follow-up: To be scheduled Iron Bess PharmD Cardiology Outpatient Clinical Pharmacist 06/11/24 [facility] 05-21-2024 Hospital Discharge instructions Patient Education 05/21/2024 [...] your health care provider. General instructions Take nxsa-yni-ygtvcfb and prescription medicines only as told by [...] provider. Document Revised: 02/09/2021 Document Reviewed: 02/09/2021 [employer] Patient Education 2023 [employer]. Follow Up Care 02/27/2024 09:12:26 With:KERI NOLASCO, Topher Ordoñez, URL Address: [facility] [address] , [place] [address]- When: Unknown [facility] 05-21-2024 Evaluation + Plan note Diagnostic Tests PendingTestosterone Level Total 05/21/24CBC w/ Auto Diff 05/21/24 [facility] 05-21-2024 Note Patient Education Obstetrics and [...] health care provider. General instructions ??? Take eisp-nmz-wwvlnhg and prescription medicines only as told by [...] drink, and whe (more content not included)... [facility] 05-15-2024 History of Present illness Narrative Images from the original note were not included. Subjective Patient ID: Juan Miguel Jennings is a 74 y.o. male who presents for Diabetic shoe check (Juan Miguel Jennings is a 74 y.o. male who presents diabetic shoe check. PCP: Dr. Dakota YARBROUGH 03/27/24, A1C: 6.4 (5/), BS: 132 SS: 14.). HPI Three-week initial [...] Brody Ibrahim DPM documented in this encounter [facility] 05-15-2024 Instructions Brody Ibrahim DPM - 05/15/2024 10:15 AM EST As noted documented in this encounter [facility] 05-02-2024 Note Cardiovascular Medic [facility] SUBJECTIVE Chief Complaint Patient presents with Coronary Artery Disease Hypertension Juan Miguel Jennings is a 74 y.o. male here for follow-up. HPI PMHx: CAD s/p MT and stenting, HTN, HLD, MO and wears [...] osteomyelitis of metatarsal bone of right foot ([facility]/HCC) Adverse reaction to statin medication Anal cancer ([facility]/HCC) Amputation of foot ([facility]/HCC) Atherosclerosis of coronary artery without angina pectoris BPH with urinary obstruction Cellulitis and abscess of toe of right foot Chronic constipation Chronic kidney disease, stage 2 (mild) Diabetic peripheral neuropathy ([facility]/HCC) Dependence on other enabling machines and devices Decreased testosterone level Chronic pain Diabetic renal disease ([facility]/HCC) Difficulty walking Elevated PSA Drug-induced myopathy Fatty liver Former smoker History of colon cancer Testicular hypofunction Hx of alf use of blood thinners Internal derangement of left knee Non-pressure chronic ulcer of other part of unspecified foot with unspecified severity ([facility]/HCC) Nocturia Morbid obesity ([facility]) Microalbuminuria Old myocardial infarction Phimosis Glaucoma Status post total left knee replacement Obstructive sleep apnea syndrome S/P drug eluting coronary stent placement S/P cardiac cath Polyneuropathy due to type 2 diabetes mellitus ([facility]/HCC) Polycythemia Urinary urgency Urinary frequency Testosterone deficiency Foot callus Osteoarthritis of knee Presence of both artificial knee joints Type 2 diabetes mellitus with neurologic complication ([facility]) Past Medical History: Diagnosis Date Coronary artery disease Diabetes mellitus ([facility]/HCC) Hyperlipidemia Hypertension Sleep apnea Family History Problem [...] Rfl: Physical Exa (more content not included)... [facility] 05-02-2024 Note Patient here for 1 y [...] All other systems reviewed and are negative. [facility] 04-23-2024 History of Present illness Narrative Images from the original note were not included. Subjective Patient ID: Juan Miguel Jennings is a 74 y.o. 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 (Juan Miguel Jennings is a 74 [...] Brody Ibrahim DPM documented in this encounter [facility] 04-23-2024 Instructions Brody Ibrahim DPM - 04/23/2024 11:00 AM EST Instructions as noted documented in this encounter [facility] 04-09-2024 Telephone encounter Note Custom orthotics arrived senthil Gruber [facility] 04-09-2024 Miscellaneous Notes Custom orthotics arrived senthil Gruber documented in this encounter [facility] 03-29-2024 History of Present illness Narrative Images from the original note were not included. Subjective Patient ID: Jaun Miguel Jennings is a 74 y.o. male who presents for Shoe Measure (Juan Miguel Jennings is a 74 y.o. male who presents for Foot Callouses. PCP: Dr. Duncan 10/27/23, A1C: 6.3 (5/), BS: 132 SS: 14). HPI Presents for [...] 2010 Geraldo Raza CATARACT EXTRACTION Left 2019 [facility] OTHER SURGICAL HISTORY 03/2017 lesions on [...] Measurements obtained in the weight-bearing position utilizing Gre[place]izerck device. Foam impressions obtained simulated weight-bearing. Patient [...] Brody Ibrahim DPM documented in this encounter [facility] 03-29-2024 Instructions Brody Ibrahim DPM - 03/29/2024 1:00 PM EDT As noted documented in this encounter [facility] 03-27-2024 History of Present illness Narrative Images [...] with Hgb A1C. Also this is a fnrg-wt-vyvg visit for consideration for diabetic shoes. Patient [...] polyneuropathy, without long-term current use of insulin ([facility]) (Primary) Chronic problem, stable, to goal. Patient has multiple podiatric issues. The forms from Podiatry were reviewed. Patient's feet were examined. I concur with the forms from Podiatry. Diabetic shoes are medically indicated. I certify that I had a cktr-ux-brcu encounter with this patient at todays office visit. Due to this medical condition the patient requires DME. I certify that based on my findings The DME ordered is medically necessary for this patient. This has been discussed with the patient and/or their client service representative and mutually agreed upon. See the [...] 5. Partial nontraumatic amputation of right foot ([facility]) Comorbid condition currently being managed by Podiatry 6. Partial nontraumatic amputation of foot, left ([facility]) Comorbid condition currently being managed by Podiatry 7. Venous stasis dermatitis of both lower extremities Chronic problem, stable. Does not appear to be progressing significantly. Discussed the importance of keeping the area moisturized. 8. Type 2 diabetes mellitus with diabetic microalbuminuria, without long-term current use of insulin ([facility]) Chronic problem, stable, to goal. 9. Microalbuminuria [...] stratification for cardiovascular disease. 10. Essential hypertension ([facility]) In prescribing a renewal to their current [...] if any problems occur. (Utilizing the original 1994/1996 guidelines or the 2020 office/outpatient code guidelines [...] - Comprehensive metabolic panel 11. Mixed hyperlipidemia ([facility]) - Lipid panel; Future - Lipid panel 12. Adverse reaction to statin medication Diagnosis for exclusion for HEDIS measures for both diabetes with statin and mixed dyslipidemia with statin. 13. Former smoker Continue nonsmoking 14. Morbid obesity (CMS/HCC) Continue lifestyle changes as able documented in this encounter [facility] 03-13-2024 History of Present illness Narrative Images [...] [place]. OTHER SURGICAL HISTORY 09/30/2022 Dorsal Slit, Saavedra, TBH TOTAL KNEE ARTHROPLASTY Right 2014 [...] Brody Ibrahim DPM documented in this encounter [facility] 03-13-2024 Instructions Brody Ibrahim DPM - 03/13/2024 9:45 AM EDT As noted documented in this encounter [facility] 12-05-2023 Hospital Discharge instructions Patient Education 12/05/2023 [...] therapy. Follow these instructions at home: Take hsyp-ckn-ayzssdi and prescription medicines only as told by [...] provider. Document Revised: 01/22/2021 Document Reviewed: 01/22/2021 [employer] Patient Education 2022 [employer]. Follow Up Care 12/05/2023 07:35:26 With:KERI NOLASCO, Topher Ordoñez, URL Address: [facility] [address] , [place] [address]- [phone] When: Unknown [facility] [place] 12-05-2023 Note Patient Education Urology Hypogonadism, Male [...] Follow these instructions at home: ? Take ehzn-uzt-bgakxvv and prescription medicines only as told by [...] provider. Document Revised: (more content not included)... [facility] 11-07-2023 Hospital Discharge instructions Follow Up Care 11/07/2023 08:41:09 With:KERI NOLASCO, Topher Ordoñez, URL Address: [facility] [address] , [place] [address]- [phone] When: Unknown [facility] 07-19-2023 History of Present illness Narrative [...] treatment at [facility] wound Center. Currently relates no bleeding or [...] [place]. OTHER SURGICAL HISTORY 09/30/2022 Dorsal Slit, Saavedra, TB TOTAL KNEE ARTHROPLASTY Right 2014 [facility] w[facility] TOTAL KNEE ARTHROPLASTY Left 05/25/[address] [...] with wound right foot; effectively managed at [facility] wound care center. Care plan: conservative and [...] Brody Ibrahim DPM documented in this encounter [facility] 07-19-2023 Instructions Brody Ibrahim DPM - 07/19/2023 10:30 AM EST As noted documented in this encounter [facility] 06-20-2023 Hospital Discharge instructions Patient Education [...] therapy. Follow these instructions at home: Take mcsq-bae-tshsoiq and prescription medicines only as told by [...] provider. Document Revised: 01/22/2021 Document Reviewed: 01/22/2021 [employer] Patient Education 2022 [employer]. Follow Up Care 02/08/2023 12:23:35 With:KERI NOLASCO, Topher Ordoñez, URL Address: [facility] [address] [place] [address]- [phone] When: Unknown Comments:6 mos w/ PSA and T level (pt to also get PSA now) [facility] 11-05-2022 Hospital Discharge instructions Patient [...] urethra. Follow these instructions at home: Take gyxn-euv-uzbcjsz and prescription medicines only as told by [...] provider. Document Revised: 12/09/2021 Document Reviewed: 12/09/2021 [employer] Patient Education 2022 [employer]. Follow Up Care 05/17/2022 10:46:35 With:KERI NOLASCO, Topher Ordoñez, URL Address: [facility] [address] , [place] [address]- When: Unknown [facility] 11-03-2022 History of Present illness Narrative [...] for visit documented in this encounter [id number] Work Phone: 09-15-2022 Note EXAM: XR CHEST 2 V HISTORY: Pre-surgery evaluation COMPARISON: None. TECHNIQUE: PA and lateral views of the chest. FINDINGS: The cardiomediastinal silhouette is normal. No focal consolidation is identified. There is no pneumothorax. No pleural effusion is noted. The osseous structures are intact. IMPRESSION: No acute cardiopulmonary process. Electronically authenticated by: DARRIUS BOLTON Date: 2022-09-15 12:26 [facility] 06-18-2022 Hospital Discharge instructions Patient Education [...] urethra. Follow these instructions at home: Take myjh-jea-hxmvnow and prescription medicines only as told by [...] 05/23/2006 Document Revised: 04/17/2019 Document Reviewed: 06/27/2017 [employer] Patient Education 2019 [employer]. Follow Up Care 06/14/2022 09:33:13 With:KERI NOLASCO, RACIEL Rg Address: [address] [place] [address] [place] [address]- When: Unknown [facility] [place] 05-17-2022 Hospital Discharge instructions Patient Education 05/17/2022 [...] urethra. Follow these instructions at home: Take bnnj-urf-ulgyhmg and prescription medicines only as told by [...] 05/23/2006 Document Revised: 04/17/2019 Document Reviewed: 06/27/2017 [employer] Patient Education 2020 [employer] Follow Up Care 04/21/2022 09:42:50 With:KERI NOLASCO, Topher Ordoñez, URL Address: [facility] [address] [place] [address]- When: Unknown [facility] 03-23-2022 Note PROCEDURE: XR FOOT R [...] authenticated by: BRODY PAYAN Date: 2022-03-23 06:26 [facility] 02-01-2022 Hospital Discharge instructions Patient Education [...] urethra. Follow these instructions at home: Take pekv-aur-hpsmzqf and prescription medicines only as told by [...] 05/23/2006 Document Revised: 04/17/2019 Document Reviewed: 06/27/2017 [employer] Patient Education 2020 [employer]. Follow Up Care 08/03/2021 15:20:11 With:Topher SAAVEDRA MD, URL Address: [address] [place], [place] [id number]- When: Unknown [facility] 10-22-2020 History of Present illness Narrative [...] ambulating without complaints documented in this encounter [employer] Work Phone: Evaluation + Plan note Future Appointments Appointment Date:09/28/2021 09:00:00 AM Scheduled Provider: Location:[facility] Appointment Type:URO Nurse Visit Appointment Date:02/01/2022 09:45:00 AM Scheduled Provider:Topher SAAVEDRA MD [facility] Appointment Type:URO Office Visit [facility] Evaluation + Plan note Future Appointments Appointment Date:10/26/2021 09:00:00 AM Scheduled Provider: [facility] Appointment Type:URO Nurse Visit Appointment Date:02/01/2022 09:45:00 AM Scheduled Provider:Topher SAAVEDRA MD [facility] Appointment Type:URO Office Visit [facility] Evaluation + Plan note Future Appointments Appointment Date:11/23/2021 09:00:00 AM Scheduled Provider: [facility] Appointment Type:URO Nurse Visit Appointment Date:02/01/2022 09:45:00 AM Scheduled Provider:Topher SAAVEDRA MD [facility] Appointment Type:URO Office Visit [facility] Evaluation + Plan note Future Appointments Appointment Date:12/21/2021 09:00:00 AM Scheduled Provider: Location:[facility] Appointment Type:URO Nurse Visit Appointment Date:02/01/2022 09:45:00 AM Scheduled Provider:Topher SAAVEDRA MD Location:[facility] Appointment Type:URO Office Visit [facility] Evaluation + Plan note Future Appointments Appointment Date:02/01/2022 09:45:00 AM Scheduled Provider:Topher SAAVEDRA MD Location:[facility] Appointment Type:URO Office Visit Diagnostic Tests PendingTestosterone Level Total 12/21/21 [facility] [email or web address] Evaluation + Plan note Future Appointments Appointment Date:03/01/2022 09:30:00 AM Scheduled Provider: Location:[facility] Appointment Type:URO Nurse Visit Diagnostic Tests PendingTestosterone Level Total 04/06/22PSA Total 03/06/22 [facility] [email or web address] Evaluation + Plan note Future Appointments Appointment Date:03/31/2022 08:15:00 AM Scheduled Provider: Location:[facility] Appointment Type:URO Nurse Visit [facility] Evaluation + Plan note Future Appointments Appointment Date:04/21/2022 09:15:00 AM Scheduled Provider: Location:[facility] Appointment Type:URO Nurse Visit [facility] Evaluation + Plan note Future Appointments Appointment Date:05/19/2022 08:00:00 AM Scheduled Provider:Mandy Schaefer MD Location:[facility] Appointment Type:URO Office Visit Diagnostic Tests PendingPSA Total 04/16/22Testosterone Level Total 04/16/22 [facility] Evaluation + Plan note Future Appointments Appointment Date:06/14/2022 09:00:00 AM Scheduled Provider: Location:[facility] Appointment Type:URO Nurse Visit Appointment Date:11/15/2022 08:45:00 AM Scheduled Provider:Topher SAAVEDRA MD [facility] Appointment Type:URO Office Visit Diagnostic Tests PendingPSA Total 05/17/22Testosterone Level Total 05/17/22 [facility] Evaluation + Plan note Future Appointments Appointment Date:09/06/2022 09:00:00 AM Scheduled Provider: Location:[facility] Appointment Type:URO Nurse Visit Appointment Date:11/15/2022 08:45:00 AM Scheduled Provider:Topher SAAVEDRA MD [facility] Appointment Type:URO Office Visit [facility] Evaluation + Plan note Future Appointments Appointment Date:10/05/2022 09:00:00 AM Scheduled Provider: [facility] Appointment Type:URO Nurse Visit Appointment Date:10/29/2022 08:45:00 AM Scheduled Provider:Topher SAAVEDRA MD [facility] Appointment Type:URO Office Visit Appointment Date:11/05/2022 09:45:00 AM Scheduled Provider:Topher SAAVEDRA MD [facility] Appointment Type:URO Office Visit [facility] Evaluation + Plan note Future Appointments Appointment Date:11/05/2022 09:45:00 AM Scheduled Provider:Topher SAAVEDRA MD [facility] Appointment Type:URO Office Visit [facility] Evaluation + Plan note Future Appointments Appointment Date:12/03/2022 09:15:00 AM Scheduled Provider: [facility] Appointment Type:URO Nurse Visit Diagnostic Tests PendingTestosterone Level Total 11/05/22PSA Total 11/05/22 [facility] Evaluation + Plan note Future Appointments Appointment Date:01/03/2023 08:15:00 AM Scheduled Provider: [facility] Appoint[facility] Type:URO Nurse Visit [facility] Evaluation + Plan note Future Appointments Appointment Date:01/31/2023 08:45:00 AM Scheduled Provider: [facility] Appointment Type:URO Nurse Visit [facility] Evaluation + Plan note Future Appointments Appointment Date:03/07/2023 08:45:00 AM Scheduled Provider: [facility] Appointment Type:URO Nurse Visit Appointment Date:04/04/2023 08:45:00 AM Scheduled Provider: Location:[facility] Appointment Type:URO Nurse Visit Appointment Date:05/02/2023 08:45:00 AM Scheduled Provider: Location:[facility] Appointment Type:URO Nurse Visit Appointment Date:05/27/2023 09:45:00 AM Scheduled Provider:Topher SAAVEDRA MD [facility] Appointment Type:URO Office Visit [facility] Evaluation + Plan note Future Appointments Appointment Date:05/02/2023 08:45:00 AM Scheduled Provider: Location:[facility] Appointment Type:URO Nurse Visit Appointment Date:06/20/2023 10:30:00 AM Scheduled Provider:Topher SAAVEDRA MD Location[facility] Appointment Type:URO Office Visit [facility] Evaluation + Plan note Future Appointments Appointment Date:06/20/2023 10:30:00 AM Scheduled Provider:Topher SAAVEDRA MD Location[facility] Appointment Type:URO Office Visit Diagnostic Tests PendingTestosterone Level Total 05/09/23 [facility] Evaluation + Plan note Future Appointments Appointment Date:07/18/2023 09:30:00 AM Scheduled Provider: Location:[facility] Appointment Type:URO Nurse Visit Diagnostic Tests PendingPSA Total 06/20/23Testosterone Level Total 06/20/23 [facility] Evaluation + Plan note Future Appointments Appointment Date:08/15/2023 10:00:00 AM Scheduled Provider: Location:[facility] [place] Appointment Type:URO Nurse Visit [facility] Evaluation + Plan note Future Appointments Appointment Date:09/09/2023 08:30:00 AM Scheduled Provider: Location:[facility] Appointment Type:URO Nurse Visit [facility] Evaluation + Plan note Future Appointments Appointment Date:10/07/2023 08:30:00 AM Scheduled Provider: Location:[facility] Appointment Type:URO Nurse Visit [facility] Evaluation + Plan note Future Appointments Appointment Date:11/07/2023 09:00:00 AM Scheduled Provider: Location:[facility] [place] Appointment Type:URO Nurse Visit [facility] Evaluation + Plan note Future Appointments Appointment Date:12/05/2023 10:45:00 AM Scheduled Provider:Topher SAAVEDRA MD Location:[facility] Appointment Type:URO Office Visit [facility] Evaluation + Plan note Future Appointments Appointment Date:01/02/2024 09:00:00 AM Scheduled Provider: Location:[facility] Appointment Type:URO Nurse Visit Diagnostic Tests PendingTestosterone Level Total 12/05/23emoglobin 12/05/23 [facility] Evaluation + Plan note Future Appointments Appointment Date:01/02/2024 09:00:00 AM Scheduled Provider: Location:[facility] Appointment Type:URO Nurse Visit [facility] Evaluation + Plan note Future Appointments Appointment Date:02/27/2024 09:00:00 AM Scheduled Provider: Location:[facility] Appointment Type:URO Nurse Visit [facility] Evaluation + Plan note Future Appointments Appointment Date:03/27/2024 09:00:00 AM Scheduled Provider: Location:[facility] Appointment Type:URO Nurse Visit Appointment Date:04/23/2024 09:30:00 AM Scheduled Provider: Location:[facility] Appointment Type:URO Nurse Visit Appointment Date:05/21/2024 10:45:00 AM Scheduled Provider:Topher SAAVEDRA MD Location[facility] Appointment Type:URO Office Visit [facility] Evaluation + Plan note Future Appointments Appointment Date:04/23/2024 09:30:00 AM Scheduled Provider: Location:[facility] Appointment Type:URO Nurse Visit Appointment Date:05/21/2024 10:45:00 AM Scheduled Provider:Topher SAAVEDRA MD Location:[facility] Appointment Type:URO Office Visit [facility] Evaluation + Plan note Future Appointments Appointment Date:05/08/2024 09:00:00 AM Scheduled Provider: Location:[facility] Appointment Type:URO Nurse Visit Appointment Date:05/21/2024 10:45:00 AM Scheduled Provider:Topher SAAVEDRA MD [facility] Appointment Type:URO Office Visit [facility] Evaluation note Diagnosis Polycythemia- Primary Polycythemia vera documented in this encounter [employer] Phone: evaluation note* Diagnosis Polycythemia- Primary Polycythemia vera documented in this encounter [facility] [employer] Phone: evaluation note* Diagnosis Dermatophytosis of nail- Primary Dystrophic nail Other specified disease of nail Diabetic polyneuropathy associated with type 2 diabetes mellitus (CMS/HCC) Nontraumatic amputation of foot, right (CMS/HCC) Nontraumatic amputation of foot, left (CMS/HCC) Acquired keratoderma [facility] Diagnosis Acquired keratoderma- Primary Diabetic polyneuropathy associated with type 2 diabetes mellitus (CMS/HCC) Nontraumatic amputation of foot, left (CMS/HCC) Nontraumatic amputation of foot, right (CMS/HCC) [facility]* Diagnosis Type 2 diabetes mellitus with diabetic polyneuropathy, without long-term current use of insulin ([facility]/HCC)- Primary Acquired hallux malleus of left foot Acquired hammer toes of both feet Foot callus Corns and callosities Partial nontraumatic amputation of right foot ([facility]/HCC) Partial nontraumatic amputation of foot, left ([facility]/HCC) Venous stasis dermatitis of both lower extremities Type 2 diabetes mellitus with diabetic microalbuminuria, without long-term current use of insulin ([facility]) Microalbuminuria Proteinuria Essential hypertension ([facility]/HCC) Unspecified essential hypertension Mixed hyperlipidemia ([facility]/HCC) Mixed hyperlipidemia Adverse reaction to statin medication Former smoker Personal history of tobacco use, presenting hazards to health Morbid obesity ([facility]) Morbid obesity [facility] Diagnosis Diabetic polyneuropathy associated with type 2 diabetes mellitus (CMS/HCC)- Primary Nontraumatic amputation of foot, left (CMS/HCC) Nontraumatic amputation of foot, right ([facility]/HCC) [facility] Diagnosis Diabetic polyneuropathy associated with type 2 diabetes mellitus (CMS/HCC)- Primary Nontraumatic amputation of foot, left (CMS/HCC) Nontraumatic amputation of foot, right ([facility]/HCC) [facility]* Diagnosis Dyspepsia Dyspepsia and other specified disorders of function of stomach documented [facility]* Diagnosis Polycythemia- Primary Polycythemia vera [facility] N[facility] No data available for this section [facility] Hospital Discharge instructions No data available for this section [facility] progress note No data available for this section [facility] Summary Purpose Family History No Family [...] FoundDocuments on File Type Date Recorded Patient Head Char Filter Tank Tender Expl anation Advance Directives and Livin g Will Advance Directives and Livin g Will 08/31/2013 9:46 AM Power of Clinical Research Administrator Power of Clinical Research Administrator 08/31/2013 9:46 AM Latest Code Status on File Code Status Date Activated Date Inactivated Comments Full Code 08/06/2016 9:06 AM 08/09/2016 5:53 PM Full Code 08/04/2016 9:28 PM 08/06/2016 9:06 AM Full Code 05/15/2015 12:42 PM 05/19/2015 6:52 PM Full Code 05/12/2015 11:22 AM 05/15/2015 12:42 PM Full Code 05/13/2014 2:36 PM 05/13/2014 9:20 PM Documents on File Type Date Recorded Patient Head Char Filter Tank Tender Expl anation ACP-Advance Directive ACP-Power of Clinical Research Administrator ACP-Advance Directive 08/31/2013 9:46 AM ACP-Power of Clinical Research Administrator 08/31/2013 9:46 AM Documents on File Type Date Recorded Patient Head Char Filter Tank Tender Expl anation ACP-Advance Directive 08/31/2013 9:46 AM ACP-Power of Clinical Research Administrator 08/31/2013 9:46 AM Latest Code Status on [...] Documents on File Type Date Recorded Patient Head Char Filter Tank Tender Expl anation Advance Directives and Living Will 11/20/2019 2018-05-09 Living Wi ll Advance Directives and Living Will 11/20/2019 2018-05-09 Power Of Clinical Research Administrator Documents on File Type Date Recorded Patient Head Char Filter Tank Tender Expl anation ACP-Power of Clinical Research Administrator 08/31/2013 9:46 AM ACP-Advance Directive 08/31/2013 9:46 [...] PM History of Present Illness * Luh Hoffman, [...] section and content) DATE CREATED AUTHOR 11/24/2017 [facility] DATE CREATED AUTHOR AUTHOR'S ORGANIZ ATION 03/15/2018 [facility] DATE CREATED AUTHOR AUTHOR'S ORGANIZ ATION 07/01/2021 [facility] DATE CREATED AUTHOR AUTHOR'S ORGANIZ ATION 09/26/2021 [facility] Specialist DATE CREATED AUTHOR AUTHOR'S ORGANIZ ATION 11/13/2022 [facility] DATE CREATED AUTHOR AUTHOR'S ORGANIZ ATION 05/18/2024 [facility]ists EPIC DATE CREATED AUTHOR AUTHOR'S ORGANIZ ATION 06/03/2024 [facility] DATE CREATED AUTHOR AUTHOR'S ORGANIZ ATION 06/24/2024 [facility] DATE CREATED AUTHOR AUTHOR'S ORGANIZ ATION 07/07/2024 [facility] DATE CREATED AUTHOR AUTHOR'S ORGANIZ ATION 07/17/[address] [facility] Care Team (unrecognized sect ion and content) [employer] Relationship Specialty Start Date End Date Jordan Duncan MD PCP - General 07/25/19 [employer] Relationship Specialty Start Date End Date Jordan Duncan MD [address] [place] [address] PCP - General Family Medicine 10/25/22 Mitch Mello MD [address] [place] [address] Referring Physician Cardiology 05/17/23 Jr. Anuja Henson DO [address] [place] [address] Referring Physician Orthopaedic Surgery 05/17/23 Brody Ibrahim DPM [address] [place] [address] Referring Physician Podiatry 05/17/23 [employer] Relationship Specialty Start Date End Date Jordan Duncan MD [address] [phone] PCP - General Family Medicine 10/25/22 Mitch Mello MD [address] [phone] Referring Physician Cardiology 05/17/23 Jr. Anuja Henson DO [address] [place] [phone] Referring Physician Orthopaedic Surgery 05/17/23 Brody Ibrahim DPM [address] [place] [address] Referring Physician Podiatry 05/17/23 [employer] Relationship Specialty Start Date End Date Jordan Duncan MD [address] [place] [address] PCP - General Family Medicine 10/25/22 Jordan Duncan MD [address] [place] [address] PCP - ACO Reach 08/05/23 iMtch Mello MD [address] [phone] Referring Physician Cardiology 05/17/23 Jr. Anuja Henson DO [address] [address] Referring Physician Orthopaedic Surgery 05/17/23 Brody Ibrahim DPM [address] [place] [address] Referring Physician Podiatry 05/17/23 [employer] Relationship Specialty Start Date End Date Jordan Duncan MD [address] [place] [address] (Fax) PCP - General Family Medicine 10/25/22 Jordan Duncan MD [address] [place] [address] (Fax) PCP - ACO Reach 08/05/23 Mitch Mello MD [address] [place] [phone] Referring Physician Cardiology 05/17/23 Jr. Anuja Henson DO [address] [address] Referring Physician Orthopaedic Surgery 05/17/23 Brody Ibrahim DPM [address] [place] [address] Referring Physician Podiatry 05/17/23 [employer] Relationship Specialty Start Date End Date Jordan Duncan MD [address] [place] [address] (Fax) PCP - General Family Medicine 10/25/22 Jordan Duncan MD [address] [place] [address] (Fax) PCP - ACO Reach 08/05/23 Mitch Mello MD [address] [place], [place] [phone] Referring Physician Cardiology 05/17/23 Jr. Anuja Henson, DO [address] [facility] [address] [place] [address] Referring Physician Orthopaedic Surgery 05/17/23 Brody Ibrahim DPM [address] [place] [address] Referring Physician Podiatry 05/17/23 [employer] Relationship Specialty Start Date End Date Jordan Duncan MD [address] [place] [address] (Fax) PCP - General Family Medicine 10/25/22 Jordan Duncan MD [address] [place] [address] (Fax) PCP - ACO Reach 08/05/23 Mitch Mello MD [address] [place], [place] [phone] Referring Physician Cardiology 05/17/23 Jr. Anuja Henson, [address] [facility] [address] [place] [address] Referring Physician Orthopaedic Surgery 05/17/23 Brody Ibrahim DPM [address] [place] [address] Referring Physician Podiatry 05/17/23 [employer] Relationship Specialty Start Date End Date Jordan Duncan MD [address] [place] [address] (Fax) PCP - General Family Medicine 10/25/22 Jordan Duncan MD [address] [place] [address] (Fax) PCP - ACO Reach 08/05/23 Mitch Mello MD [address] [place] [address] Referring Physician Cardiology 05/17/23 Jr. Anuja Henson DO [address] [address] Referring Physician Orthopaedic Surgery 05/17/23 Brody Ibrahim DPM [address] [place] [address] Referring Physician Podiatry 05/17/23 [employer] Relationship Specialty Start Date End Date Jordan Duncan MD [address] [facility] [address] [place] [address] (Fax) PCP - General Family Medicine 10/25/22 Jordan Duncan MD [address] [facility] [address] [place] [address] (Fax) PCP - ACO Reach 08/05/23 Mitch Mello MD [address] [place] [address] Referring Physician Cardiology 05/17/23 Jr. Anuja Henson DO [address] [facility] [address] [place] [address] Referring Physician Orthopaedic Surgery 05/17/23 Brody Ibrahim DPM [address] [place] [address] Referring Physician Podiatry 05/17/23 [employer] Relationship Specialty Start Date End Date Jordan Duncan MD [address] [place] [address] (Fax) PCP - General Family Medicine 10/25/22 Jordan Duncan MD [address] [place] [address] (Fax) PCP - ACO Reach 08/05/23 Mitch Mello MD [address] [phone] Referring Physician Cardiology 05/17/23 Jr. Anuja Henson DO [address] [facility] [address] [place] [address] Referring Physician Orthopaedic Surgery 05/17/23 Brody Ibrahim DPM [address] [place] [address] Referring Physician Podiatry 05/17/23 [employer] Relationship Specialty Start Date End Date Jordan Duncan MD [address] [place] [address] (Fax) PCP - General Family Medicine 10/25/22 Jordan Duncan MD [address] [place] [address] (Fax) PCP - ACO Reach 08/05/23 Mitch Mello MD [address] [place], [place] [phone] Referring Physician Cardiology 05/17/23 Jr. Anuja Henson DO [address] [place] [address] Referring Physician Orthopaedic Surgery 05/17/23 Brody Ibrahim DPM [address] [place], [place] [phone] Referring Physician Podiatry 05/17/23 [employer] Relationship Specialty Start Date End Date Jordan Duncan MD [address] [place] [address] (Fax) PCP - General Family Medicine 10/25/22 Jordan Duncan MD [address] [facility] [address] [place] [address] (Fax) PCP - ACO Reach 08/05/23 Mitch Mello MD [address] [place] [address] Referring Physician Cardiology 05/17/23 Jr. Anuja Henson DO [address] [facility] [address] [place] [id number] Referring Physician Orthopaedic Surgery 05/17/23 Brody Ibrahim DPM [address] [place] [address] Referring Physician Podiatry 05/17/23 [employer] Relationship Specialty Start Date End Date Jordan Duncan MD [address] [place] [address] (Fax) PCP - General Family Medicine 10/25/22 Jordan Duncan MD [address] [facility] [address] [place] [address] (Fax) PCP - ACO Reach 08/05/23 Mitch Mello MD [address] [place] [address] Referring Physician Cardiology 05/17/23 Jr. Anuja Henson DO [address] [facility] [address] [place] [address] Referring Physician Orthopaedic Surgery 05/17/23 Brody Ibrahim DPM [address] [facility] [place] [address] Referring Physician Podiatry 05/17/23 [employer] Relationship Specialty Start Date End Date Jordan Duncan MD [address] [facility] [address] [place] [address] (Fax) PCP - General Family Medicine 10/25/22 Jordan Duncan MD [address] [facility] [address] [place] [address] (Fax) PCP - ACO Reach 08/05/23 Mitch Mello MD [address] [place] [address] Referring Physician Cardiology 05/17/23 Jr. 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 PCP: Dr. Dakota YARBROUGH 03/27/24, A1C: 6.4 (10/04), BS: 132 SS: 14. Reason Comments Diabetic [...] BE BASED ON THE PRIMARY CLINICAL RECORDS. [facility] [facility] provides no warranty or guarantee of the accuracy or completeness of information in this document.
== END 2024-07-25 09:19 | disposition home or self-care (01) ==
LOC: WC 09:18
PROVIDERS: PCP Family Medicine; Visit Provider Physician Assistant
DX: E11.40 Type 2 diabetes mellitus with diabetic neuropathy, unspecified (principal); L84 Corns and callosities; E11.621 Type 2 diabetes mellitus with foot ulcer; L97.412 Non-pressure chronic ulcer of right heel and midfoot with fat layer exposed; L97.422 Non-pressure chronic ulcer of left heel and midfoot with fat layer exposed
CPT/HCPCS: 11055

== ENCOUNTER 2024-08-07 15:55 | Outpatient (OUT) | payer MEDICARE, SELFPAY | END 2024-08-07 15:56 | disposition home or self-care (01) | LOC: WC 15:55 | PROVIDERS: PCP Family Medicine; Visit Provider Physician Assistant | DX: E11.621 Type 2 diabetes mellitus with foot ulcer (principal); L97.412 Non-pressure chronic ulcer of right heel and midfoot with fat layer exposed | CPT/HCPCS: 11042 ==

== ENCOUNTER 2024-08-29 08:46 | Outpatient (OUT) | payer MEDICARE, SELFPAY ==
--- OUTSIDE RECORDS SUMMARY | 2024-08-29 09:09 | XMS_ITS | CCD ---
Author Organization [facility] Care Team Providers Care Gun Repair Clerk Name Role Phone PHYSICIAN, DEFAULT Unavailable Unavailable PHYSICIAN, DEFAULT Unavailable Unavailable Diego Bartlett Primary Care Provider Jordan Duncan Primary Care Provider Jordan Duncan MD Primary Care Provider JORDAN DUNCAN Primary Care Physician Jordan Duncan MD Primary Care Provider [phone] JORDAN DUNCAN Primary Care Physician Unavail able Jordan Duncan MD Primary Care Provider [phone] ENEDINA HARGROVE Attending Unavailable HEMEYER ., DR ALATORRE Primary Care Unavailable ENEDINA HARGROVE Admitting Unavailable ENEDINA HARGROVE Admitting Unavailable ENEDINA HARGROVE Attending Unavailable HEMEENOC ., DR ALATORRE Primary Care Unavailable ENEDINA HARGROVE Admitting Unavailable ENEDINA HARGROVE Attending Unavailable HEMEYER ., DR ALATORRE Primary Care Unavailable ORA, DR BRODY Ordoñez Consulting Unavailable ENEDINA HARGROVE Consulting Unavailable EENDINA HARGROVE Admitting Unavailable ENEDINA HARGROVE Attending Unavailable [...] BOLTON Consulting Unavailable ENEDINA HARGROVE Attending Unavailable HIGHLSULAIMAN PETER Marion Admitting Unavailable HEMEYER ., DR ALATORRE Primary Care Unavailable ENEDINA HARGROVE Attending Unavailable EENDINA HARGROVE Admitting Unavailable HEMEYER ., DR ALATORRE Primary Care Unavailable Jordan Duncan MD Primary Care Provider [phone] Funmilayo NOLASCO, Mitch Armendariz Unavailable Jr. Anuja Henson DO Unavailable Brody Ibrahim DPM Unavailable Jordan Duncan MD Unavailable [phone] Jordan Duncan MD Primary Care Provider [phone] Jordan Duncan MD Unavailable Jordan Duncan MD Primary Care Provider [phone] Jordan Duncan MD Unavailable Fernanda Solomon Attending Unavailable SAAVEDRA, Topher R Attending Unavailable [...] Attending Unavailable SAAVEDRA, Topher R Attending Unavailable Jordan Duncan MD Primary Care Provider WILLI SANCHEZ Referring Unavailable HEMEYER, JORDAN Brown Primary Care Unavailable HEMEYER, JORDAN Brown Primary Care Unavailable WILLI SANCHEZ Referring Unavailable HEMEYER, JORDAN Brown Primary Care Unavailable WILLI SANCHEZ Referring Unavailable ANUJA HUDDLESTON Attending Unavailable PAUL CLEMONS Attending Unavailable HEMEYER, JORDAN Brown Attending Unavailable RUSBRODY PELAYO Attending Unavailable HEMEYER, JORDAN Brown Attending Unavailable HEMEENOC, JORDAN Brown Attending Unavailable RUS, BRODY Xiao Attending Unavailable RUS, BRODY Xiao Attending Unavailable RUS, BRODY Xiao Attending Unavailable HEMEENOC, JORDAN Brown Attending Unavailable RUS, BRODY Xiao Attending Unavailable RUS, BRODY Xiao Attending Unavailable BRODY IBRAHIM Attending Unavailable Anuja Huddleston MD Unavailable Topher Saavedra MD Unavailable Feli ALEXANDER Kitty Unavailable Allergies Allergy Classification Reported Allergen(s) Allergy Type Date of Onset Reaction(s) Facility (4 sources) Clindamycin/Linc omycin Propensity to adverse reactions to drug 8 [place] Clindamycin Drug Allergy 2 [facility] [employer] (4 sources) glipiZIDE; Translations: [GLIPIZIDE] Drug Allergy 2 Diarrhea [facility] [employer] Work Phone: (20 sources) metFORMIN; Translations: [METFORMIN] Drug Allergy 2 Diarrhea, Unknown [facility] [employer] Work Phone: (20 sources) Pravastatin; Translations: [PRAVASTATIN] Drug Allergy 2 Unknown [facility] [employer] Work Phone: (4 sources) rosuvastatin; Translations: [ROSUVASTATIN] Drug Allergy 2 [facility] [employer] Work Phone: (2 sources) Clindamycin; Translations: [CLINDAMYCIN] Drug Allergy [address] [facility] (1 source) glipiZIDE Drug Allergy [address] [facility] (1 source) metFORMIN Drug Allergy [address] [facility] (20 sources) Clindamycin Drug Allergy 2 Diarrhea [facility] (20 sources) ezetimibe; Translations: [EZETIMIBE] Drug Allergy 2 Unknown [facility] (20 sources) glipiZIDE Drug Allergy 2 Diarrhea, Unknown [facility] (20 sources) Rosuvastatin calcium Allergy to substance 1 Unknown [facility] Medications Current Medications Medication Drug Class(es) Dates Sig (Normalized) Sig (Original) amLODIPine 5 mg oral tablet (3 sources) Dihydropyridine Calcium Channel Justice Start: 06-08-2024 End: 06-08-2025 take 1 tablet by mouth once daily amLODIPine (Norvasc) 5 MG tablet Take 5 mg by mouth Daily 06/08/2024 06/08/2025 Active aspirin 81 mg delayed release oral tablet [...] Refills(s) 0 Start Date: 01/01/19 Status: Ordered Simbrinza (20 sources) Carbonic Anhydrase Inhibitor, alpha-Adrenergic Agonist Start: 01-01-2019 take 1 drop(s) into the eye(s) twice daily Simbrinza drop(s), Eye-Both, BID, Refill(s) 0 Start Date: 01/01/19 Status: Ordered Simbrinza 1-0.2 % suspension every 8 (eight) hours. Active brinzolamide-latia monidine 1-0.2 % SUSP Apply to eye 3 times daily Active cholecalciferol 0.05 mg oral tablet (20 sources) Vitamin D cholecalciferol (Vitamin D-3) 50 MCG (2000 UT) tablet Take by mouth. Active Cholecalciferol (VITAMIN D3) 50 MCG (2000 UT) TABS Take by mouth daily Active Cholecalciferol (VITAMIN D3) 3000 UNITS TABS [...] Refills(s) 0 Start Date: 01/01/19 Status: Ordered 24 hr isosorbide mononitrate 30 mg extended release oral tablet (3 sources) Nitrate Vasodilator Start: 06-08-2024 End: 06-08-2025 take 1 tablet by mouth once daily, then take 1 tablet by mouth every twenty-four hours isosorbide mononitrate ER (Imdur) 30 MG 24 hr tablet Take 30 mg by mouth Daily 06/08/2024 06/08/2025 Active latanoprost 0.05 mg/ml ophthalmic solution (20 sources) [...] MG 24 hr tablet Indications: Atherosclerosis of [place] coronary artery of [place] heart without angina pectoris (CMS/HCC) Take 1.5 tablets (150 mg) by mouth in the morning. Do not crush or chew.. 135 tablet 1 04/20/2023 10/17/2023 Active take 1 tablet by piper th once daily metoprolol succinate (TOPROL XL) 50 MG extended release tablet Take 1 tablet by mouth nightly 100mg in the am, 50mg in the pm Active take 2 tablets by mo [facility] twice daily in the evening metoprolol (TOPROL-XL) [...] polyneuropathy, without long-term current use of insulin ([facility]) Take 1 tablet (30 mg) by mouth [...] BID, # 180 cap(s), Refills(s) 3, Pharmacy: [facility]/pharmacy #[id number], 198, patti, 12/05/23 10:49:00 EDT, Height/Length Dosing, 150.3, kg, 12/05/23 10:49:00 EDT, Weight Dosing Start Date: 01/11/24 Status: Ordered Start: 06-18-2022 take 1 capsule by [facility] once daily tamsulosin 0.4 mg Cap 0.4 mg = 1 cap(s), Oral, Daily, # 90 cap(s), Refills(s) 3, Pharmacy: [facility]/pharmacy #[id number], 198, cm, 11/05/22 10:14:00 EDT, Height/Length Dosing, 150, kg, 11/05/22 10:14:00 EDT, Weight Dosing Start Date: 05/26/23 Status: Ordered take 1 capsule by [facility] every twenty-four hours in the morning [...] q4wk, # 10 mL, Refills(s) 1, Pharmacy: [facility]/pharmacy #[id number], 198, cm, 12/05/23 10:49:00 EDT, Height/Length Dosing, 150.3, kg, 12/05/23 10:49:00 EDT, Weight Dosing Start Date: 03/27/24 Status: Ordered Start: 01-03-2024 testosterone c ypionate 200 mg/mL IM Richelle 400 mg, IntraMuscular, q4wk, # 10 mL, Refills(s) 1, Pharmacy: [facility]/pharmacy #[id number], 198, cm, 12/05/23 10:49:00 EDT, Height/Length Dosing, 150.3, kg, 12/05/23 10:49:00 EDT, Weight Dosing Start Date: 01/03/24 Status: Ordered Start: 06-20-2023 testosterone c ypionate 200 mg/mL IM Richelle 450 mg, IntraMuscular, q4wk, # 10 mL, Refills(s) 1, Pharmacy: [facility]/pharmacy #[id number], 198, cm, 06/20/23 11:05:00 EST, Height/Length Dosing, 149, kg, 06/20/23 11:05:00 EST, Weight Dosing Start Date: 06/20/23 Status: Ordered Start: 05-09-2023 testosterone c ypionate 200 mg/mL IM Richelle 400 mg, IntraMuscular, q4wk, # 10 mL, Refills(s) 1, Pharmacy: [facility]/pharmacy #[id number], 198, cm, 11/05/22 10:14:00 EDT, Height/Length Dosing, 150, kg, 11/05/22 10:14:00 EDT, Weight Dosing Start Date: 05/09/23 Status: Ordered Start: 02-08-2023 testosterone c ypionate 200 mg/mL IM Richelle 400 mg, IntraMuscular, q4wk, # 10 mL, Refills(s) 2, Pharmacy: [facility]/pharmacy #[id number], 198, cm, 11/05/22 10:14:00 EDT, Height/Length Dosing, 150, kg, 11/05/22 10:14:00 EDT, Weight Dosing Start Date: 02/08/23 Status: Ordered Start: 08-27-2022 testosterone c ypionate 200 mg/mL IM Richelle 400 mg, IntraMuscular, q4wk, # 10 mL, Refills(s) 2, Pharmacy: [facility]/pharmacy #[id number], 198, cm, 06/18/22 9:10:00 EST, Height/Length Dosing, 164, kg, 06/18/22 9:10:00 EST, Weight Dosing Start Date: 08/27/22 Status: Ordered testosterone cypionate 200 mg/mL intramuscular solution (17 sources) Start: 02-01-2022 testosterone c ypionate 200 mg/mL intramuscular solution 400 mg = 2 mL, IntraMuscular, q4wk, 400mg once a month, # 10 mL, Refills(s) 3, [id number], cm, 02/01/22 9:53:00 EDT, Height/Length Dosing, 166, kg, 02/01/22 9:53:00 EDT, Weight Dosing Start Date: 02/01/22 Status: Ordered Start: 11-23-2021 testosterone c ypionate 200 mg/mL intramuscular solution 350 mg, IntraMuscular, q4wk, # 10 mL, Refills(s) 1, Pharmacy: [facility]/pharmacy #[id number], 198, cm, 08/03/21 14:37:00 EST, Height/Length Dosing, 166, kg, 08/03/21 14:37:00 EST, Weight Dosing Start Date: 11/23/21 Status: Ordered Start: 08-03-2021 testosterone c ypionate 200 mg/mL intramuscular solution 350 mg, IntraMuscular, q4wk, # 10 mL, Refills(s) 1, Pharmacy: [facility]/pharmacy #[id number], 198, cm, 08/03/21 14:37:00 EST, Height/Length Dosing, 166, kg, 08/03/21 14:37:00 EST, Weight Dosing Start Date: 08/03/21 Status: Ordered 12 hr timolol 5 mg/ml ophthalmic solution (20 sources) beta-Adrenergic Justice Start: 05-31-2024 take 1 drop(s) into the eye(s) in the morning timolol (Timoptic) 0.5 % ophthalmic solution Administer 1 drop into both eyes in the morning and 1 drop before bedtime. 05/31/2024 Active Start: 05-23-2014 apply 1 drop(s) into the eye(s) once daily timolol (TIMOPTIC-XE) 0.5 % ophthalmic gel-forming Place 1 drop into both eyes daily 3 05/23/2014 Active End: 07-25-2024 take 1 drop(s) into the eye(s) at bedtime timolol (Timoptic) 0.25 % ophthalmic solution Administer 1 drop into both eyes at bedtime 07/25/2024 Discontinued (Therapy completed) Completed/Discontinued Medications Medication Drug Class(es) Dates Sig (Normalized) Sig (Original) B Complex Vitamins (VITAMIN B COMPLEX PO) (20 sources) End: 07-25-2024 take 1 tablet by mouth in the morning B Complex Vitamins (VITAMIN B COMPLEX PO) Take 1 tablet by mouth in the morning. 07/25/2024 Discontinued (Therapy completed) take 1 tablet by mouth in the [...] COMPLEX PO) Take by mouth. 0 Active Fish Oils (1 source) End: 01-12-2019 FISH OIL by Does not apply r oute daily 0 01/12/2019 Discontinued (Therapy completed) Problems Active Problems Problem Classification Problem Date Documented Date Episodic/Chronic Abdominal pain (1 source) Indigestion; Translations: [Epigastric pain] 06-18-2024 Episodic Acquired foot deformities (20 sources) Hallux rigidus, right foot; Translations: [Acquired hallux malleus] Onset: 05-03-20 Resolved : 03-28-2001-11-2023 Chronic Acquired foot deformities (3 sources) Other hammer toe(s) (acquired), left foot; Translations: [Acquired hallux malleus of left great toe] Onset: 05-03-2003-28-2024 Chronic Acute myocardial infarction (20 sources) Myocardial infarction 02-19-2019 Chronic Cancer of rectum and anus (7 sources) Malignant tumor of anus; Translations: [Malignant neoplasm of anus, unspecified] Onset: 03-15-2008-04-2016 Chronic Chronic kidney disease (20 sources) Chronic kidney disease stage 2; Translations: [Chronic kidney disease, stage 2 (mild)] Onset: 11-15-19 Resolved : 10-14-1901-11-2023 Chronic Chronic ulcer of skin (20 sources) Non-pressure chronic ulcer of other part of right foot with fat layer exposed; Translations: [Non-pressure chronic ulcer of left heel and midfoot limited to breakdown of skin] Onset: 01-14-20 Resolved : 01-14-2001-13-2023 Chronic Coronary atherosclerosis and other heart disease (20 sources) Coronary arteriosclerosis; Translations: [Atherosclerotic heart disease of [place] coronary artery without angina pectoris] Onset: 04-08-20 Resolved : 01-14-2002-19-2019 Chronic Coronary atherosclerosis and other heart disease (6 sources) History of placement of stent for coronary artery disease; Translations: [Presence of coronary angioplasty implant and graft] Onset: 05-13-20 14 05-13-2014 Episodic Diabetes mellitus with complications (20 sources) Diabetic peripheral neuropathy; Translations: [Type 2 diabetes mellitus with diabetic polyneuropathy] Onset: 08-05-19 Resolved : 05-17-2008-04-2016 Chronic Diabetes mellitus without complication (20 sources) Type 2 diabetes mellitus; Translations: [Type 2 diabetes mellitus with other diabetic neurological complication] Onset: 08-05-19 Resolved : 10-14-1908-04-2016 Chronic Disorders of lipid metabolism (20 sources) Hyperlipidemia; Translations: [Hyperlipidemia, unspecified] Onset: 05-13-20 14 05-13-2014 Chronic E Codes: Adverse effects of medical drugs (20 sources) HMG COA reductase inhibitor adverse reaction; Translations: [Adverse effect of antihyperlipidemic and antiarteriosclerotic drugs, initial encounter] Onset: 09-11-19 21 01-11-2023 Episodic Essential hypertension (20 sources) Hypertensive disorder; Translations: [Essential (primary) hypertension] Onset: 05-13-20 14 08-04-2016 Chronic Glaucoma (20 sources) Open-angle glaucoma; Translations: [Unspecified open-angle glaucoma, stage unspecified] Onset: 01-12-20 Resolved : 01-14-20 23 02-19-2019 Chronic Hyperplasia of prostate (20 sources) Benign prostatic hypertrophy with outflow obstruction; Translations: [Benign prostatic hyperplasia with lower urinary tract symptoms] Onset: 02-02-20 22 09-08-2020 Chronic Malaise and fatigue (2 sources) Other fatigue; Translations: [Other fatigue] Onset: 05-02-20 Episodic Mycoses (6 sources) Tinea unguium; Translations: [Onychomycosis due to dermatophyte ] Onset: 04-15-20 Episodic Open wounds of extremities (20 sources) Amputated foot; Translations: [Complete traumatic amputation of unspecified foot, level unspecified, initial encounter] Onset: 09-12-19 21 01-11-2023 Chronic Osteoarthritis (20 sources) Osteoarthritis of knee; Translations: [Osteoarthritis of knee, unspecified] Onset: 02-26-20 Resolved : 01-14-20 23 01-11-2023 Chronic 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 (1 source) terminal gauger (current) use of anticoagulants; Translations: [CORRECTION CURRNT USE ANTICOAGULANTS] Onset: 10-13-19 Episodic 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 (1 source) [facility] (current) use of aspirin; Translations: [BIRTH ATTENDANT CURRENT USE OF ASPIRIN] Onset: 10-13-19 Episodic 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 (1 source) terminal gauger (current) use of oral hypoglycemic drugs; Translations: [CORRECTION USE ORAL HYPOGLYCEMIC DX] Onset: 10-13-19 Episodic 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 (1 source) Other long term care administrator (current) drug therapy; Translations: [OTH CORRECTION CURRENT DRUG THERAPY] Onset: 09-21-19 Episodic Other circulatory disease (1 source) Other specified peripheral vascular diseases; Translations: [OTH SPEC PERIPHERAL VASC DISEASES] Onset: 05-03-20 Chronic Other connective tissue disease (1 source) Presence of artificial knee joint, bilateral; Translations: [PRESENCE ARTIFICIAL KNEE JNT BILAT] Onset: 10-13-19 Chronic Other connective tissue disease (20 sources) Artificial knee joint present; Translations: [Presence of artificial knee joint, bilateral] Onset: 05-25-20 21 05-17-2023 Chronic Other diseases of bladder and urethra (1 source) Detrusor overactivity; Translations: [Overactive bladder] Onset: 05-21-20 Chronic Other diseases of bladder and urethra (4 sources) Overactive bladder; Translations: [Overactive bladder] Onset: 07-16-1905-21-2024 Chronic Other diseases of veins and lymphatics (2 sources) Disorder of vein of lower extremity; Translations: [Venous insufficiency (chronic) (peripheral)] 03-28-2024 Episodic Other endocrine disorders (20 sources) Disorder of pituitary gland; Translations: [Disorder of pituitary gland, unspecified] Onset: 09-01-19 Chronic Other endocrine disorders (20 sources) Hypogonadism 01-01-2019 Chronic Other endocrine disorders (20 sources) Male hypogonadism; Translations: [Testicular hypofunction] Onset: 01-12-20 23 01-01-2019 Chronic Other endocrine disorders (8 sources) Testicular hypofunction; Translations: [Testicular hypofunction] Onset: 12-22-19 Chronic Other endocrine disorders (1 source) Testicular hypofunction; Translations: [TESTICULAR HYPOFUNCTION] Onset: 10-13-19 Chronic Other gastrointestinal disorders (20 sources) H/O: liver disease 11-05-2019 Episodic Other liver diseases (20 sources) Steatosis of liver; Translations: [Fatty (change of) liver, not elsewhere classified] Onset: 04-08-20 17 01-11-2023 Chronic Other male genital disorders (20 sources) Impotence 01-01-2019 Chronic Other male genital disorders (5 sources) Phimosis; Translations: [PHIMOSIS] Onset: 09-21-19 Episodic Other nervous system disorders (20 sources) Chronic pain; Translations: [Other chronic pain] Onset: 12-26-19 Resolved : 01-14-20 23 01-13-2023 Chronic Other nutritional; endocrine; and metabolic disorders (20 sources) Morbid obesity; Translations: [Morbid (severe) obesity due to excess calories] Onset: 08-06-19 17 08-05-2016 Chronic Other nutritional; endocrine; and metabolic disorders (2 sources) Obesity caused by energy imbalance; Translations: [Morbid (severe) obesity due to excess calories] 07-23-2024 Chronic Other nutritional; endocrine; and metabolic disorders (2 sources) Body mass index 30+ - obesity; Translations: [Body mass index (BMI) 39.0-39.9, adult] 07-25-2024 Chronic Other screening for suspected conditions (not [...] Translations: [Obstructive sleep apnea (adult) (pediatric)] Onset: 10-01-19 16 08-04-2016 Chronic Residual codes; unclassified (20 sources) Sleep apnea 02-19-2019 Chronic Residual codes; unclassified (1 source) Sleep apnea, unspecified; Translations: [SLEEP APNEA UNSPECIFIED] Onset: 10-13-19 Chronic Residual codes; unclassified (20 sources) Dependence on enabling machine or device; Translations: [Dependence on other enabling machines and devices] Onset: 03-04-20 21 01-11-2023 Chronic Residual codes; unclassified (2 sources) Obstructive sleep apnea (adult) (pediatric); Translations: [Obstructive sleep apnea (adult) (pediatric)] Onset: 07-16-19 Chronic Residual codes; unclassified (1 source) Family history of malignant neoplasm of digestive organs; Translations: [FAM HX MALIG NEOPLASM DIGESTIV ORGN] Onset: 09-21-19 Episodic Residual codes; unclassified (2 sources) Other specified health status; Translations: [Other specified health status] Onset: 07-16-19 Episodic Residual codes; unclassified (2 sources) Active advance directive (copy within chart) ; Translations: [Other specified health status] 07-23-2024 Episodic Superficial injury; contusion (6 sources) Blister (nonthermal), left foot, initial encounter; Translations: [Blister (nonthermal), right foot, sequela] Onset: 05-03-20 22 Episodic Unclassified (3 sources) History of cardiac catheterization; Translations: [S/P cardiac cath] Onset: 05-13-20 14 05-13-2014 Unclassified (3 sources) CONTACT W/AND (SUSP) EXPOS COVID-19; Translations: [CONTACT W/AND (SUSP) EXPOS COVID-19] Onset: 01-20-20 Past or Other Problems Problem Classification Problem Date Documented Da te Episodic/Chronic Acquired foot deformities (2 sources) Flat foot [pes planus] (acquired), unspecified foot; Translations: [Other acquired deformities of left foot] Onset: 05-03-2022 Episodic Cancer of colon (20 sources) History of malignant neoplasm of colon; Translations: [Personal history of other malignant neoplasm of large intestine] Onset: 10-12-2022 02-19-2019 Episodic Genitourinary symptoms and ill-defined conditions (20 sources) Increased frequency of urination; Translations: [Nocturia] Onset: 11-15-2019 Resolved: 10-10-2023 01-01-2019 Episodic Infective arthritis and osteomyelitis (except that caused by tuberculosis or sexually transmitted disease) (20 sources) Acute osteomyelitis of metatarsal; Translations: [Other acute osteomyelitis, right ankle and foot] Onset: 08-05-2016 Resolved: 01-13-2023 08-05-2016 Chronic Joint disorders and dislocations; trauma-related (20 sources) Derangement of left knee; Translations: [Unspecified internal derangement of left knee] Onset: 01-23-2021 Resolved: 01-13-2023 01-13-2023 Chronic Mood disorders (20 sources) Mood disorders Onset: 05-17-2023 Resolved: 07-25-2024 05-17-2023 Other connective tissue disease (20 sources) History of total knee arthroplasty; Translations: [Presence of left artificial knee joint] Onset: 06-03-2021 Resolved: 05-17-2023 05-17-2023 Chronic Other connective tissue disease (1 source) Pain in left foot; Translations: [PAIN IN LEFT FOOT] Onset: 05-25-2022 Episodic Other connective tissue disease (1 source) Plantar fascial fibromatosis; Translations: [PLANTAR FASCIAL FIBROMATOSIS] Onset: 04-15-2022 Episodic Other connective tissue disease (4 sources) Pain in right foot; Translations: [PAIN IN RIGHT FOOT] Onset: 03-22-2022 Episodic Other endocrine disorders (20 sources) Hypotestosteronism; Translations: [Endocrine disorder, unspecified] Onset: 04-08-2017 01-11-2023 Episodic Other gastrointestinal disorders (20 sources) Chronic constipation; Translations: [Other constipation] Onset: 01-11-2023 01-11-2023 Episodic Other hematologic conditions (20 sources) Erythrocytosis; 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] Onset: 04-05-2014 04-05-2014 Episodic Other hematologic conditions (1 source) Secondary polycythemia; 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] Onset: 04-05-2014 Episodic Other lower respiratory disease (1 source) Other specified respiratory disorders; Translations: [OTHER SPEC RESPIRATORY DISORDERS] Onset: 01-19-2022 Episodic Other male genital disorders (20 sources) Phimosis; Translations: [Phimosis] Onset: 05-17-2022 Resolved: 01-13-2023 Episodic Other nervous system disorders (20 sources) Difficulty walking; Translations: [Difficulty in walking, not elsewhere classified] Onset: 05-26-2021 Resolved: 10-10-2023 01-11-2023 Chronic Other nervous system disorders (20 sources) Drug-induced myopathy; Translations: [Drug-induced myopathy] Onset: 10-31-2020 01-11-2023 Episodic Other skin disorders (1 source) Nail dystrophy; Translations: [NAIL DYSTROPHY] Onset: 05-25-2022 Episodic Other skin disorders (5 sources) Corns and callosities; Translations: [CORNS AND CALLOSITIES] Onset: 05-03-2022 Episodic Other skin disorders (20 sources) Foot callus; Translations: [Corns and callosities] Onset: 09-23-2020 01-11-2023 Episodic Residual codes; unclassified (20 sources) History of cardiac catheterization; Translations: [Other specified postprocedural states] Onset: 05-13-2014 Resolved: 01-13-2023 05-13-2014 Episodic Residual codes; unclassified (20 sources) H/O: anticoagulant therapy; Translations: [Personal history of other drug therapy] Onset: 01-11-2023 01-01-2019 Episodic Residual codes; unclassified (1 source) Pain, unspecified; Translations: [PAIN UNSPECIFIED] Onset: 01-19-2022 Episodic Screening and history of mental health and substance abuse codes (20 sources) Ex-smoker; Translations: [Personal history of nicotine dependence] Onset: 07-13-2017 01-11-2023 Episodic Skin and subcutaneous tissue infections (20 sources) Cellulitis and abscess of toe; Translations: [Cellulitis of right toe] Onset: 08-04-2016 Resolved: 01-13-2023 08-05-2016 Episodic Unclassified (3 sources) Patient encounter status; Translations: [Screening for colorectal cancer] Onset: 02-12-2014 Resolved: 04-03-2018 04-03-2018 Unclassified (1 source) CONTACT W/AND (SUSP) EXPOS COVID-19; Translations: [CONTACT W/AND (SUSP) EXPOS COVID-19] Onset: 01-18-2022 Results Test Name Value Interpretation Reference Range Facility Office Visiton 07-16-2024 Follow-up visit [id number] Juan Miguel Jennings 1950 M Date Provider Department Center 07/16/2024 ANUJA ARMSTRONG [facility] Family History Problem Relation Age of Onset Heart disease Mother Heart disease Father Family Status - Relation Status Age at Mother Father Level of Service:23783 [place] OFFICE/OUTPATIENT ESTABLISHED MOD MDM 30 MIN Normal [facility] 36on 07-09-2024 36 What is his blood pressure running? We can have him try holding amlodipine to see if this will help. We can see how he's feeling at his follow-up appt next week. Normal [facility] CBC W/AUTO DIFFon 06-21-2024 ABS IMMATURE GRAN 0.04 K/uL Normal 0.00-0.06 [facility] Comment on above: Result Comment: UNLE SS OTHERWISE INDICATED, ALL TESTING PERFORMED AT: [facility] [employer] [address] [place] [id number] PROCUREMENT REPRESENTATIVE: JONI NI M.D. CLIA NUMBER [id number] CAP ACCREDITATION AUID [id number] ABS NEUTROPHILS 5.59 K/uL Normal 1.9-8.0 Pathology [...] and informed him of above message from [facility]. He agrees to start isosorbide and amlodipine. Sent to [facility] per his request. He will see Dr. Huddleston in clinic on 07/16/2024 in [place]. Do you need me to send something to [place] or did you already? Normal [facility] Documentationon 06-08-2024 Documentation [id number] Juan Miguel Jennings 1950 M Date Provider Department Center 06/08/2024 09721-MUYPIRON DU HVCANTICOAG NE HeartVAS Family History Problem Relation Age of Onset Heart disease Mother Heart disease Father Family Status - Relation Status Age at Mother Father Reason for Visit and Comments: PharmD Cardiology Consult [Other] [facility] Orders Onlyon 06-02-2024 Orders Only [id number] Juan Miguel Jennings 1950 M Date Provider Department Center 06/02/2024 PAUL JAIMES [facility] Family History Problem Relation Age of Onset Heart disease Mother Heart disease Father Family Status - Relation Status Age at Mother Father [facility] Reminderson 06-01-2024 Reminders Reminders From: Bertha Winter [...] ) Other: PROVIDER RELATED REMINDER:_ ( ) [facility] ( ) Call Pharmacy ( ) Call Lab ( ) Other: Special Instructions:_ Comments:_ Results in chart for review Normal [facility] ALL CBC WITH AUTO DIFFon BASOPHILS ABSOLUTE AUTO 0 [facility] Basophils/100 WBC (Bld) 0.4 % 0.2 - 2.0 % [facility] Eosinophils/100 WBC (Bld) 4.2 % 0.9 - 7.0 % [facility] Erythrocyte distribution width (RBC) [Ratio] 13.8 % 11.0 - 15.0 % [facility] Hematocrit (Bld) [Volume fraction] 53 % 42.0 - 54.0 % [facility] Hemoglobin (Bld) [Mass/Vol] 17.9 g/dL 14.0 - 18.0 g/dL [facility] IMMATURE GRANULOCYTES ABS AUTO 0.01 [facility] Immature granulocytes/100 WBC (Bld) 0.1 % 0.0 - 0.5 % [facility] Interpretation and review of laboratory results Abnormal [facility] LYMPHOCYTES ABSOLUTE AUTO 1.1 Low [facility] Lymphocytes/100 WBC (Bld) 15 % Low 20.5 - 60.0 % [facility] MCH (RBC) [Entitic mass] 32.9 pg 25.9 - 34.0 pg [facility] MCHC (RBC) [Mass/Vol] 33.8 g/dL 29.9 - 35.2 g/dL [facility] MCV (RBC) [Entitic vol] 97.4 fL High 80.0 - 94.0 fL [facility] MONOCYTES ABSOLUTE AUTO 0.9 High [facility] Monocytes/100 WBC (Bld) 12.2 % High 1.7 - 12.0 % [facility] NEUTROPHILS ABSOLUTE AUTO 4.8 [facility] Neutrophils/100 WBC (Bld) 68.1 % 43.0 - 75.0 % [facility] Platelet mean volume (Bld) [Entitic vol] 12.5 fL 9.5 - 13.5 fL [facility] TBH EO # 0.3 [facility] [...] JORDAN Brown This Is Your Medications List [facility] Prescription (METOPROLOL TARTRATE 100 MG TAB) aspirin [...] Follow Up with KERI NOLASCO, Topher Ordoñez, RACIEL When: Where: [facility] [address] [place] [address]- Medications What How Much When Instructions Unchanged [...] PSA History of colon cancer Hx of nursing home use of blood thinners Hyperlipidemia Hypertension Hypogonadism [...] ??? Ea (more content not included)... Normal [facility] Urology Office/Clinic Noteon 05-21-2024 Urology Office/Clinic [...] Has not been able to donate blood, [place] will not let him. Pt will talk to his oncologist in [place] to see if there is another way he can donate blood. Shares he got CBC drawn on 05/08 at [facility], no results on [facility], called lab and they did not [...] onc to facilitate blood donation/get permission for [place]. 2. 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 Normal [facility] Comment on above: Result Comment: Elec tronically Signed By: Topher SAAVEDRA MD\.br\Date and Time Signed: 05/21/24 12:18 EST\.br\Electronically Co-Signed By: Bertha Winter.br\Date and Time Co-Signed: 05/21/24 12:17 EST ALL LIPID PROFILE (FASTING)o n 05-08-2024 CHOL HDL RATIO 4.5 [facility] Comment on above: 3.3 - 4.4 LOW RISK 4.4 - 7.1 AVERAGE RISK 7.1 - 11.0 MODERATE RISK >11.0 HIGH RISK Cholesterol [Mass/Vol] 189 mg/dL NINF - 200 mg/dL [facility] Cholesterol in HDL [Mass/Vol] 42 mg/dL 40 - 60 mg/dL [facility] Comment on above: > or =60 mg/dl - LOW CARDIOVASCULAR RISK <40 mg/dl - HIGH CARDIOVASCULAR RISK LDL CHOLESTEROL CALCULATED 124.2 mg/dL [facility] Comment on above: <100 mg/dl OPTIMAL 100-129 mg/dl NEAR OR ABOVE OPTIMAL 130-159 mg/dl BORDERLINE HIGH 160-189 mg/dl HIGH >190 mg/dl VERY HIGH Magnesium [Mass/Vol] 22.8 mg/dL [facility] Triglyceride [Mass/Vol] 114 mg/dL NINF - 150 mg/dL [facility] Office Visiton 05-02-2024 Follow-up visit [id number] Juan Miguel Jennings 1950 M Date Provider Department Center 05/02/2024 PAUL JAIMES [facility] Family History Problem Relation Age of Onset Heart disease Mother Heart disease Father Family Status - Relation Status Age at Mother Father Level of Service:89920 [place] OFFICE/OUTPATIENT ESTABLISHED MOD MDM 30 MIN Reason for Visit and Comments: Coronary Artery Disease [187] Hypertension [809745] Normal [facility] Ambulatory Visit Summaryon 1 06-23-2023 Ambulatory Visit [...] AM EST With: Where: [facility] [address] [place] [address]- Tuesday 10:45 AM EST With: KERI NOLASCO, Topher Ordoñez Where: [facility] [address] [place] [address]- Medications What How Much When Instructions Unchanged [...] PSA History of colon cancer 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 [facility] Ambulatory Visit Summaryon 1 Ambulatory Visit Summary Ambulatory Visit Summary JUAN MIGUEL JENNINGS :1950 Visit Date:03/27/2024 Ambulatory Visit Instructions Your Diagnosis Hypogonadism male Your Care Team Attending Physician - KERI NOLASCO, Topher Ordoñez Primary Care Physician - DAKOTA NOLASCO, JORDAN Brown This Is Your Medications List [facility] Prescription (METOPROLOL TARTRATE 100 MG TAB) aspirin [...] AM EST With: Where: [facility] of [address] [address]- Tuesday 10:45 AM EST With: KERI NOLASCO, Topher Ordoñez Where: [facility] of [address] [address]- Medications What How Much When Instructions Unchanged [...] PSA History of colon cancer 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 Normal [facility] CBC W/AUTO DIFFon 02-22-2024 ABS IMMATURE [...] above: Result Comment: [facility] [address] [place] [address] CLIA No. [id number] CAP Accreditation No. [id number] Life Insurance Underwriter: Shaunna Dee M.D. Platelets (Bld) [#/Vol] 128 10*3/uL Low 130-400 [facility] RBC (Bld) [#/Vol] 5.56 10*6/uL Normal 4.50-6.10 [facility] WBC (Bld) [#/Vol] 6.7 10*3/uL Normal 3.5-11.0 [facility] COMPREHENSIVE METABOLIC PANE L WITH GFRon 02-22-2024 Albumin [Mass/Vol] 4.8 g/dL Normal 3.5-5.2 [facility] ALK PHOS 82 U/L Normal 40-125 [facility] ALT [Catalytic activity/Vol] 26 U/L Normal 5-50 [facility] Anion gap [Moles/Vol] 10.0 mmol/L Normal 7.0-16.0 [facility] AST-SGOT 28 U/L Normal 9-50 [facility] Bilirubin.direct [Mass/Vol] 0.6 mg/dL Normal <=1.2 [facility] Calcium [Mass/Vol] 9.5 mg/dL Normal 8.5-10.5 [facility] Chloride [Moles/Vol] 104 mmol/L Normal 95-107 [facility] CO2 [Moles/Vol] 23 mmol/L Normal 19-31 [facility] Creatinine [Mass/Vol] 0.89 mg/dL Normal 0.80-1.40 [facility] GFR/1.73 sq M.predicted among non-blacks MDRD (S/P/Bld) [Vol rate/Area] 91 mL/min/{1.73_m2} Normal >60 [facility] Glucose [Mass/Vol] 138 mg/dL High 70-99 [facility] Potassium [Moles/Vol] 4.5 mmol/L Normal 3.5-5.4 [facility] Protein [Mass/Vol] 7.6 g/dL Normal 6.1-8.3 [facility] Sodium [Moles/Vol] 137 mmol/L Normal 133-146 [facility] Urea nitrogen [Mass/Vol] 18 mg/dL [...] 9:30 AM EDT Where: [facility] [address] [address]- Medications What How Much When Instructions Unchanged [...] PSA History of colon cancer Hx of nursing home use of blood thinners Hyperlipidemia Hypertension Hypogonadism [...] for choosing us for your care. Normal [facility] Urology Office/Clinic Noteon 12-05-2023 Urology Office/Clinic [...] [facility] [address], [place] [phone] Additional Instructions: 6 mos w/ T level [...] PSA History of colon cancer Hx of nursing home use of blood thinners Hyperlipidemia Hypertension Hypogonadism [...] Oral, TID, (more content not included)... Normal [facility] Comment on above: Result Comment: Elec tronically Signed By: Topher SAAVEDRA MD\.br\Date and Time Signed: 12/05/23 11:42 EDT\.br\Electronically Co-Signed By: Erica Marin\.br\Date and Time Co-Signed: 12/05/23 11:40 EDT [facility] 11-22-2023 Lab Reports [id number] .[id number] Normal [facility] 11-09-2023 [facility] [id number] .00TIFF Normal [facility] CBC W/AUTO DIFFon 10-25-2023 ABS IMMATURE [...] Inc Comment on above: Result Comment: [facility] [address] CLIA No. [id number] CAP Accreditation No. [id number] Life Insurance Underwriter: Shaunna Dee M.D. Platelets (Bld) [#/Vol] 141 10*3/uL Normal 130-400 [facility] RBC (Bld) [#/Vol] 5.28 10*6/uL Normal 4.50-6.10 [facility] WBC (Bld) [#/Vol] 7.2 10*3/uL Normal 3.5-11.0 [facility] COMPREHENSIVE METABOLIC PANE L WITH [...] Topher Ordoñez Primary Care Physician - DAKOTA NOALSCO, JORDAN Brown This Is Your Medications List [...] 8:30 AM EDT Where: [facility] 07-15-2023 Lab Reports [id number] .00TIFF [facility] 06-28-2023 Lab Reports [id number] .00TIFF [facility] Ambulatory Visit Summaryon 0 06-20-2023 Ambulatory Visit Summary JUAN MIGUEL JENNINGS :1950 Visit Date:06/20/2023 Ambulatory Visit Instructions Your Diagnosis Hypogonadism male Elevated PSA BPH with urinary obstruction Phimosis Urinary urgency Tests Performed Urnls Dip Stick Auto w/o Microscopy POC 65701 Your Care Team Attending Physician - KERI [...] 9:30 AM EST Where: [facility] Normal [facility] Patient Educationon 06-20-19 Patient Education Urology Hypogonadism, [...] Follow these instructions at home: ? Take ofve-pyw-dielprh and prescription medicines only as told by [...] Document (more content not included)... 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 Normal [facility] Comment on above: Result Comment: Elec tronically Signed By: Topher SAAVEDRA MD\.br\Date and Time Signed: 06/20/23 11:28 EST\.br\Electronically Co-Signed By: Erica Marin\.br\Date and Time Co-Signed: 06/20/23 11:26 EST POINT OF CARE GLUCOSEon 04-2 7-2023 Glucose [Mass/Vol] 112 mg/dL Critically high 74-[address] [facility] Comment on above: Performed By: #### P OCGLUC #### [facility] [address] [address] [address] Patria Sanders CBC AUTO DIFFon 09-15-2022 BASO # 0.0 103/ul Normal 0.0-0.1 [facility] Comment on above: Performed By: #### C BC #### [facility] [address] [place] [address] Dr. Patria Sanders Basophils/100 WBC (Bld) 0.5 % Normal 0.2-2.0 [facility] Comment on above: Performed By: #### C BC #### [facility] [address] [place] [address] Dr. Patria Sanders EO # 0.3 103/ul Normal 0.0-0.7 [facility] Comment on above: Performed By: #### C BC #### [facility] [address] [place] [address] Dr. Patria Sanders Eosinophils/100 WBC (Bld) 3.2 % Normal 0.9-7.0 [facility] Comment on above: Performed By: #### C BC #### [facility] [address] [place] [address] Dr. Patria Sanders Erythrocyte distribution width (RBC) [Ratio] 14.5 % Normal 11.0-15.0 [facility] Comment on above: Performed By: #### C BC #### [facility] [address] [place] [address] Dr. Patria Sanders Hematocrit (Bld) [Volume fraction] 49.0 % Normal 42.0-54.0 [facility] Comment on above: Performed By: #### C BC #### [facility] [address] [place] [address] Dr. Patria Sanders Hemoglobin (Bld) [Mass/Vol] 16.7 g/dL Normal 14.0-18.0 [facility] Comment on above: Performed By: #### C BC #### [facility] [address] [place] [address] Dr. Patria Sanders IG # 0.03 10e3/ul Normal 0.00-0.03 [facility] Comment on above: Performed By: #### C BC #### [facility] [address] [place] [address] Dr. Patria Sanders IG % 0.4 % Normal 0.0-0.5 [facility] Comment on above: Performed By: #### C BC #### [facility] [address] [place] [address] Dr. Patria Sanders LYMPH # 1.1 103/ul Critically low 1.2-3.8 [facility] Comment on above: Performed By: #### C BC #### [facility] [address] [place] [address] Dr. Patria Sanders Lymphocytes/100 WBC (Bld) 14.5 % Critically low 20.5-60.0 [facility] Comment on above: Performed By: #### C BC #### [facility] [address] [place] [address] Dr. Patria Sanders MANUAL DIFF REQ NO Normal [facility] Comment on above: Performed By: #### C BC #### [facility] [address] [place] [address] Dr. Patria Sanders MCH (RBC) [Entitic mass] 32.6 pg Normal 25.9-34.0 [facility] Comment on above: Performed By: #### C BC #### [facility] [address] [place] [address] Dr. Patria Sanders MCHC (RBC) [Mass/Vol] 34.1 g/dL Normal 29.9-35.2 [facility] Comment on above: Performed By: #### C BC #### [facility] [address] [place] [address] Dr. Patria Sanders MCV (RBC) [Entitic vol] 95.5 fL Critically high 80.0-94.0 [facility] Comment on above: Performed By: #### C BC #### [facility] [address] [place] [address] Dr. Patria Sanders MONO # 0.8 103/ul Normal 0.3-0.8 [facility] Comment on above: Performed By: #### C BC #### [facility] [address] [place] [address] Dr. Patria Sanders Monocytes/100 WBC (Bld) 9.6 % Normal 1.7-12.0 [facility] Comment on above: Performed By: #### C BC #### [facility] [address] [place] [address] Dr. Patria Sanders NEUT # 5.6 103/ul Normal 1.4-6.5 [facility] Comment on above: Performed By: #### C BC #### [facility] [address] [place] [address] Dr. Patria Sanders Neutrophils/100 WBC (Bld) 71.8 % Normal 43.0-75.0 [facility] Comment on above: Performed By: #### C BC #### [facility] [address] [place] [address] Dr. Patria Sanders Platelet mean volume (Bld) [Entitic vol] 11.6 fL Normal 9.5-13.[address] [facility] Comment on above: Performed By: #### C BC #### [facility] [address] [place] [address] Dr. Patria Sanders PLT 154 103/ul Normal 150-[address] [facility] Comment on above: Performed By: #### C BC #### [facility] [address] [place] [address] Dr. Patria Sanders RBC 5.13 106/ul Normal 4.70-6.[address] [facility] Comment on above: Performed By: #### C BC #### [facility] [address] [place] [address] Dr. Patria Sanders WBC 7.8 103/ul Normal 4.0-11.[address] [facility] Comment on above: Performed By: #### C BC #### [facility] [address] [place] [address] Dr. Patria Sanders PROF CHEM 8 (BAS METB)on Anion gap [Moles/Vol] 11.4 mmol/L Normal [facility] Comment on above: Performed By: #### B MP #### [facility] [address] [address] [address] Patria Sanders Calcium [Mass/Vol] 9.1 mg/dL Normal 8.5-10.1 [facility] Comment on above: Performed By: #### B MP #### [facility] [address] [address] [address] Patria Sanders Chloride [Moles/Vol] 104 mmol/L Normal 98-[address] [facility] Comment on above: Performed By: #### B MP #### [facility] [address] [place] [address] Dr. Patria Sanders CO2 [Moles/Vol] 28.7 mmol/L Normal 21.0-32.0 [facility] Comment on above: Performed By: #### B MP #### [facility] [address] [address] [address] Patria Sanders Creatinine [Mass/Vol] 0.80 mg/dL Normal 0.70-1.[address] [facility] Comment on above: Performed By: #### B MP #### [facility] [address] [place] [address] Dr. Patria Sanders EGFR-AF SALVADOREAN >60 Normal >=60 [facility] Comment on above: Performed By: #### B MP #### [facility] [address] [address] [address] Patria Sanders EGFR-NON AF SALVADOREAN >60 Normal >=[address] [facility] Comment on above: Performed By: #### B MP #### [facility] [address] [address] [address] Patria Sanders Glucose [Mass/Vol] 101 mg/dL Normal 74-106 [facility] Comment on above: Performed By: #### B MP #### [facility] [address] [place] [address] Dr. Patria Sanders Potassium [Moles/Vol] 4.1 mmol/L Normal 3.5-5.[address] [facility] Comment on above: Performed By: #### B MP #### [facility] [address] [place] [address] Dr. Patria Sanders Sodium [Moles/Vol] 140 mmol/L Normal 136-145 [facility] Comment on above: Performed By: #### B MP #### [facility] [address] [place] [address] Dr. Patria Sanders Urea nitrogen [Mass/Vol] 11.0 mg/dL Normal 7.0-18.0 [facility] Comment on above: Performed By: #### B MP #### [facility] [address] [place] [address] Dr. Patria Sanders Urea nitrogen/Creatinine [Mass ratio] 13.8 mg/mg Normal [facility] Comment on above: Performed By: #### B MP #### [facility] [address] [place] [address] Dr. Patria Sanders PROTIMEon 09-15-2022 INR Coag (PPP) [Relative time] 1.02 {INR} Normal [facility] Comment on above: Performed By: #### P TT, PT #### [facility] [address] [place] [address] Dr. Patria Sanders INR GUIDELINES SEE BELOW Normal [facility] Comment on above: Result Comment: SANTO RED INR: 2.0 - 3.0 CONDITIONS NOT LISTED BELOW 2.5 - 3.5 FOR PROSTHETIC HEART VALVE REPLACEMENT 2.5 - 3.5 RECURRENT THROMBOSIS Performed By: #### P TT, PT #### [facility] [address] [place] [address] Dr. Patria Sanders PT Coag (PPP) [Time] 10.8 s Normal 9.0-11.[address] [facility] Comment on above: Performed By: #### P TT, PT #### [facility] [address] [place] [address] Dr. Patria Sanders PTTon 09-15-2022 aPTT Coag (Bld) [Time] 32.0 s Normal 22.3-36.[address] [facility] Comment on above: Performed By: #### P TT, PT #### [facility] [address] [place] [address] [address] [address] Patria Sanders Covid-19 PCR (CVDTB)on 01-04 SARS-CoV-2 (COVID-19) RNA NANCY+probe Ql (Unsp spec) Not detected Normal NOT DETECTED [facility] Comment on above: Result Comment: This test is not yet approved or cleared by the [place] FDA. When there are no FDA-approved or cleared tests available, and other criteria are met, FDA can make tests available under an emergency access mechanism called an Emergency Use Authorization (EUA). The EUA for this test is supported by the [place] of Health and Human Service's (HHS's) declaration [...] SARS-CoV-2. Performed By: #### C VDTBH #### [facility] [address] [place] [address] Dr. Patria Sanders Hemoglobin A1Con 09-24-2021 EAG 128.37 Normal [facility] Comment on above: Performed By: #### A 1C #### [facility] [address], [place] [id number] HbA1c (Bld) [Mass fraction] 6.1 % High 4.0-6.0 [facility] Comment on above: Performed By: #### A 1C #### [facility] [address], [place] [id number] Testosteroneon 05-11-2021 TESTOS 314.70 ng/dL Normal 193.00-740.00 [facility] Comment on above: Performed By: #### T EST #### [facility] [address], [place] [id number] XR femur BIon 05-06-2021 XR femur BI [facility] [place] [address] [place] [address] XRay Report Signed Patient: Juan Miguel Jennings MR#: [id number] 25 : 1950 Acct:[id number] Age/Sex: 71 / M ADM Date: 05/06/21 Loc: ICXD Room: Type: [facility] Attending Dr: Maxwell Staley PA-C Ordering Provider: Maxwell Staley PA-C Date of Service: 05/06/21 XR/XR chest 2V*: [id number] ([id number]) XR/XR femur BI: [id number] ([id number]) XR/XR tibia/fibula BI: . 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 [facility] Vital Signs Date Time Vital Sign Value Performing Clinician Facility 07-25-2024 10:01-0500 Body height 198.1 cm Jordan Duncan MD Work Phone: [facility] 07-25-2024 10:01-0500 Body mass index (BMI) [Ratio] 39.64 kg/m2 Jordan Duncan MD Work Phone: [facility] 07-25-2024 10:01-0500 Body weight 155.58 kg Jordan Duncan MD Work Phone: [facility] 07-25-2024 10:01-0500 Diastolic blood pressure 74 mm[Hg] Jordan Duncan MD Work Phone: [facility] 07-25-2024 10:01-0500 Heart rate 58 /min Jordan Duncan MD Work Phone: [facility] 07-25-2024 10:01-0500 SaO2% (BldA) [Mass fraction] 98 % Jordan Duncan MD Work Phone: [facility] 07-25-2024 10:01-0500 Systolic blood pressure 120 mm[Hg] Jordan Duncan MD Work Phone: [facility] 07-05-2024 13:45-0500 Diastolic blood pressure 72 mm[Hg] [facility] 07-05-2024 13:45-0500 Heart rate 77 /min [facility] 07-05-2024 13:45-0500 Systolic blood pressure 135 mm[Hg] [facility] 07-05-2024 13:16-0500 Body temperature 97.5 [degF] Mthz Schedule [facility] 07-05-2024 13:16-0500 Respiratory rate 18 /min Mthz Schedule [facility] 05-21-2024 10:44-0500 Blood Pressure Location Tophre SAAVEDRA [facility] 05-21-2024 10:44-0500 Body temperature 98.6 [degF] Topher SAAVEDRA [facility] 05-21-2024 10:44-0500 Diastolic blood pressure 79 mm[Hg] Topher SAAVEDRA [facility] 05-21-2024 10:44-0500 Heart rate 58 /min Topher SAAVEDRA [facility] 05-21-2024 10:44-0500 Respiratory rate 16 /min Topher SAAVEDRA [facility] 05-21-2024 10:44-0500 Systolic blood pressure 133 mm[Hg] Topher KERI [facility] 05-15-2024 10:21-0500 Body height 198.1 cm Brody Ibrahim DPM Work Phone: [facility] 05-15-2024 10:21-0500 Body mass index (BMI) [Ratio] 40.45 kg/m2 Brody Ibrahim DPM Work Phone: [facility] 05-15-2024 10:21-0500 Body weight 158.76 kg Brody Ibrahim DPM Work Phone: [facility] 04-23-2024 10:41-0500 Body height 198.1 cm Brody Ibrahim DPM Work Phone: [facility] 04-23-2024 10:41-0500 Body mass index (BMI) [Ratio] 40.45 kg/m2 Brody Ibrahim DPM Work Phone: [facility] 04-23-2024 10:41-0500 Body weight 158.76 kg Brody Ibrahim DPM Work Phone: [facility] 03-29-2024 12:49-0400 Body height 198.1 cm Brody Ibrahim DPM Work Phone: [facility] 03-29-2024 12:49-0400 Body mass index (BMI) [Ratio] 40.45 kg/m2 Brody Ibrahim DPM Work Phone: [facility] 03-29-2024 12:49-0400 Body weight 158.76 kg Brody Ibrahim DPM Work Phone: [facility] 03-27-2024 14:00-0400 Body height 198.1 cm Jordan Duncan MD Work Phone: [facility] 03-27-2024 14:00-0400 Body mass index (BMI) [Ratio] 40.45 kg/m2 Jordan Duncan MD Work Phone: [facility] 03-27-2024 14:00-0400 Body weight 158.76 kg Jordan Duncan MD Work Phone: [facility] 03-27-2024 14:00-0400 Diastolic blood pressure 76 mm[Hg] Jordan Duncan MD Work Phone: [facility] 03-27-2024 14:00-0400 Heart rate 71 /min Jordan Duncan MD Work Phone: [facility] 03-27-2024 14:00-0400 SaO2% (BldA) [Mass fraction] 97 % Jordan Duncan MD Work Phone: [facility] 03-27-2024 14:00-0400 Systolic blood pressure 128 mm[Hg] Jordan Duncan MD Work Phone: [facility] 03-13-2024 09:41-0400 Body height 198.1 cm Brody Ibrahim DPM Work Phone: [facility] 03-13-2024 09:41-0400 Body mass index (BMI) [Ratio] 40.45 kg/m2 Brody Ibrahim DPM Work Phone: [facility] 03-13-2024 09:41-0400 Body weight 158.76 kg Brody Ibrahim DPM Work Phone: [facility] 12-05-2023 10:38-0400 Blood Pressure Location Topher SAAVEDRA [facility] 12-05-2023 10:38-0400 Body temperature 98.6 [degF] Topher SAAVEDRA [facility] 12-05-2023 10:38-0400 Diastolic blood pressure 86 mm[Hg] Topher SAAVEDRA [facility] 12-05-2023 10:38-0400 Heart rate 69 /min Topher SAAVEDRA [facility] 12-05-2023 10:38-0400 Respiratory rate 16 /min Topher SAAVEDRA [facility] 12-05-2023 10:38-0400 Systolic blood pressure 136 mm[Hg] Topher SAAVEDRA [facility] 07-19-2023 10:37-0500 Body height 198.1 cm Brody Ibrahim DPM Work Phone: [facility] 07-19-2023 10:37-0500 Body mass index (BMI) [Ratio] 39.87 kg/m2 Brody Ibrahim DPM Work Phone: [facility] 07-19-2023 10:37-0500 Body weight 156.49 kg Brody Ibrahim DPM Work Phone: [facility] 06-20-2023 10:33-0500 Blood Pressure Location Topher SAAVEDRA [facility] 06-20-2023 10:33-0500 Diastolic blood pressure 86 mm[Hg] Topher SAAVEDRA [facility] 06-20-2023 10:33-0500 Heart rate 70 /min Topher SAAVEDRA [facility] 06-20-2023 10:33-0500 Respiratory rate 16 /min Topherpeter SAAVEDRA [facility] 06-20-2023 10:33-0500 Systolic blood pressure 139 mm[Hg] Topher SAAVEDRA [facility] 11-05-2022 10:12-0400 Blood Pressure Location Topherpeter SAAVEDRA [facility] 11-05-2022 10:12-0400 Diastolic blood pressure 78 mm[Hg] Topherpeter SAAVEDRA [facility] 11-05-2022 10:12-0400 Heart rate 68 /min Topherpeter SAAVEDRA [facility] 11-05-2022 10:12-0400 Respiratory rate 16 /min Topherpeter SAAVEDRA [facility] 11-05-2022 10:12-0400 Systolic blood pressure 130 mm[Hg] Topher SAAVEDRA [facility] 11-03-2022 14:34-0400 Body temperature 97.5 [degF] Mthz Schedule [facility] 11-03-2022 14:34-0400 Diastolic blood pressure 77 mm[Hg] Mthz Schedule [facility] 05-31-2023 14:34-0400 Heart rate 72 /min Mthz Schedule [facility] 11-03-2022 14:34-0400 Respiratory rate 18 /min Mthz Schedule [facility] 11-03-2022 14:34-0400 Systolic blood pressure 140 mm[Hg] Mthz Schedule [facility] 06-18-2022 08:55-0500 Blood Pressure Location Topherpeter SAAVEDRA [facility] 06-18-2022 08:55-0500 Diastolic blood pressure 82 mm[Hg] Topher SAAVEDRA [facility] 06-18-2022 08:55-0500 Heart rate 80 /min Topher SAAVEDRA [facility] 06-18-2022 08:55-0500 Respiratory rate 16 /min Topher SAAVEDRA [facility] 06-18-2022 08:55-0500 Systolic blood pressure 132 mm[Hg] Topher SAAVEDRA [facility] 05-17-2022 09:43-0500 Blood Pressure Location Topher SAAVEDRA [facility] 05-17-2022 09:43-0500 Diastolic blood pressure 92 mm[Hg] Topher SAAVEDRA [facility] 05-17-2022 09:43-0500 Heart rate 63 /min Topher SAAVEDRA [facility] 05-17-2022 09:43-0500 Systolic blood pressure 143 mm[Hg] Topher SAAVEDRA [facility] 02-01-2022 09:48-0400 Blood Pressure Location Topherpeter SAAVEDRA [facility] 02-01-2022 09:48-0400 Diastolic blood pressure 66 mm[Hg] Topher SAAVEDRA [facility] 02-01-2022 09:48-0400 Heart rate 84 /min Topher SAAVEDRA [facility] 02-01-2022 09:48-0400 Respiratory rate 16 /min Topher SAAVEDRA [facility] 02-01-2022 09:48-0400 Systolic blood pressure 98 mm[Hg] Topher SAAVEDRA [facility] 01-28-2022 13:48-0400 Diastolic blood pressure 76 mm[Hg] Mthz Lab Schedule [facility] 01-28-2022 13:48-0400 Heart rate 56 /min Mthz Lab Schedule [facility] 01-28-2022 13:48-0400 Respiratory rate 18 /min Mthz Lab Schedule [facility] 01-28-2022 13:48-0400 Systolic blood pressure 135 mm[Hg] Mthz Lab Schedule [facility] 01-28-2022 13:25-0400 Body temperature 97.39 [degF] Mthz Lab Schedule [facility] 10-22-2020 12:25-0400 Body temperature 97.81 [degF] Mthz Schedule [employer] Work Phone: 10-22-2020 12:25-0400 Heart rate 67 /min Mthz Schedule [facility] Work Phone: 07-27-2019 08:03-0500 Body Temperature 96.3 [degF] Mthz Schedule [facility] [place] 07-27-2019 08:03-0500 BP Diastolic 80 mm[Hg] Mthz Schedule [facility] [place] , [place] 07-27-2019 08:03-0500 BP Systolic 129 mm[Hg] Mthz Schedule [facility] [place] , [place] 07-27-2019 08:03-0500 Pulse (Heart Rate) 63 /min Mthz Schedule [facility] [place] 07-27-2019 08:03-0500 Respiratory Rate 20 /min Mthz Schedule [facility] [place] 03-13-2019 08:02-0400 Body Temperature 96.69 [degF] Mthz Schedule [facility] [place] 03-13-2019 08:02-0400 BP Diastolic 83 mm[Hg] Mthz Schedule [facility] [place] 03-13-2019 08:02-0400 BP Systolic 162 mm[Hg] Mthz Schedule [facility] [place] 03-13-2019 08:02-0400 Pulse (Heart Rate) 74 /min Mthz Schedule [facility] [place] 03-13-2019 08:02-0400 Respiratory Rate 20 /min Mthz Schedule [facility] [place] 01-12-2019 08:03-0400 Body Temperature 96.91 [degF] [facility] [place] 01-12-2019 08:03-0400 BP Diastolic 87 mm[Hg] Mthz Schedule [facility] [place] 01-12-2019 08:03-0400 BP Systolic 152 mm[Hg] Mthz Schedule [facility] [place] 01-12-2019 08:03-0400 Pulse (Heart Rate) 63 /min [facility] [place] 01-12-2019 08:03-0400 Respiratory Rate 20 /min [facility] Schedule [facility] [place] Encounters Encounter Date Encounter Type Care Provider Facility Start: 07-25-2024 End: 07-25-2024 [employer] flowsheet Jordan Duncan MD Work Phone: [facility] Start: 07-25-2024 End: 07-25-2024 Bamboo flowsheet Jordan Duncan MD Work Phone: [facility] Start: 07-25-2024 End: 07-25-2024 Patient encounter procedure Jordan Duncan MD Work Phone: [facility] Comment on above: Encounter for Medica re annual wellness exam (Primary Dx); Advance directive in chart; Encounter for screening for other disorder; Screening for alcohol problem; Morbid (severe) obesity due to excess calories ([facility]); BMI 39.0-39.9,adult; Type 2 diabetes mellitus with diabetic polyneuropathy, without long-term current use of insulin ([facility]); Type 2 diabetes mellitus with diabetic microalbuminuria, without long-term current use of insulin ([facility]); Type 2 diabetes mellitus with foot ulcer (CODE) ([facility]); Non-pressure chronic ulcer of other part of unspecified foot with unspecified severity ([facility]); Partial nontraumatic amputation of right foot ([facility]); Partial nontraumatic amputation of foot, left ([facility]); Atherosclerosis of [place] coronary artery of [place] heart without angina pectoris ([facility]); History of myocardial infarction ([facility]); Mixed hyperlipidemia ([facility]); Adverse reaction to statin medication; Primary open angle glaucoma of both eyes, unspecified glaucoma stage ([facility]) Start: 07-25-2024 End: 07-25-2024 ambulatory JORDAN DUNCAN Not Available Start: 07-16-2024 End: 07-16-2024 ambulatory [facility] Start: 07-05-2024 End: 07-05-2024 ambulatory WILLI SANCHEZ [facility] Start: 07-05-2024 End: 07-05-2024 Subsequent hospital visit by physician [facility] Fast Track Chair 1 Schedule [facility] Comment on above: Polycythemia (Primar y Dx) Start: 06-18-2024 End: 06-18-2024 Telephone encounter Jordan Duncan MD Work Phone: [facility] Start: 05-22-2024 End: 05-22-2024 Clinisync Result Encounter Generic External Data Provider [facility] External [facility] Unsolicited Start: 05-22-2024 End: 05-22-2024 Clinisync Result Encounter Generic External Data Provider [facility] External Department Unsolicited Start: 05-21-2024 End: 05-21-2024 ambulatory Topher SAAVEDRA Facility:[facility] Start: 05-21-2024 End: 05-21-2024 Patient encounter procedure Topher SAAVEDRA [facility] Start: 05-15-2024 End: 05-15-2024 ambulatory BRODY IBRAHIM Not Available Start: 05-15-2024 End: 05-15-2024 Postop follow up visit related to original px Brody Ibrahim DPM Work Phone: [facility] Comment on above: Diabetic polyneuropa [...] Unsolicited Start: 05-08-2024 ambulatory Topher SAAVEDRA Fac[facility] ty:[place] Start: 05-02-2024 End: 05-02-2024 ambulatory [facility] Start: 04-23-2024 End: 04-23-2024 Bambotamika flowstony Ibrahim DPM Work Phone: [facility] Start: 04-23-2024 End: 04-23-2024 Marek flowsheet Brody Ibrahim DPM Work Phone: [facility] Start: 04-23-2024 End: 04-23-2024 ambulatory Topher SAAVEDRA Facility:[facility] Start: 04-23-2024 End: 04-23-2024 Patient encounter procedure Topher SAAVEDRA [facility] Comment on above: Diabetic polyneuropa thy associated with type 2 diabetes mellitus (CMS/HCC) (Primary Dx); Nontraumatic amputation of foot, left (CMS/HCC); Nontraumatic amputation of foot, right (CMS/HCC) Start: 04-09-2024 End: 04-09-2024 Telephone encounter Brody Ibrahim DPM Work Phone: [facility] Comment on above: Advice Only (orthoti cs) Start: 03-29-2024 End: 03-29-2024 Bamboo flowsheet Brody Ibrahim DPM Work Phone: [facility] Start: 03-29-2024 End: 03-29-2024 Bamboo flowsheet Broyd Ibrahim DPM Work Phone: [facility] Start: 03-29-2024 End: 03-29-2024 Postop follow up visit related to original px Brody Ibrahim DPM Work Phone: [facility] Comment on above: Diabetic polyneuropa thy associated with type 2 diabetes mellitus ([facility]/HCC) (Primary Dx); Nontraumatic amputation of foot, left [...] (CMS/HCC); Partial nontraumatic amputation of foot, left ([facility]/H[facility]); Venous stasis dermatitis of both lower extremities; Type 2 diabetes mellitus with diabetic microalbuminuria, without long-term current use of insulin ([facility]); Microalbuminuria; Essential hypertension ([facility]/H[facility]); Mixed hyperlipidemia ([facility]); Adverse reaction to statin medication; Former smoker; Morbid obesity ([facility]) Start: 03-27-2024 End: 03-27-2024 ambulatory JORDAN DUNCAN Not Available Start: 03-27-2024 End: 03-27-2024 ambulatory Topher SAAVEDRA Facility:[facility] Start: 03-27-2024 End: 03-27-2024 Patient encounter procedure Topher SAAVEDRA [facility] Start: 03-13-2024 End: 03-13-2024 Bam[employer] Groupheet Brody Ibrahim DPM Work Phone: [facility] Start: 03-13-2024 End: 03-13-2024 Thermogenicsheet Brody Ibrahim DPM Work Phone: [facility] Start: 03-13-2024 End: 03-13-2024 Patient encounter procedure Brody Ibrahim DPM Work Phone: [facility] Comment on above: Acquired keratoderma (Primary Dx); Diabetic polyneuropathy associated with type 2 diabetes mellitus ([facility]/HCC); Nontraumatic amputation of foot, left ([facility]/HCC); Nontraumatic amputation of foot, right ([facility]) Start: 03-13-2024 End: 03-13-2024 ambulatory BRODY IBRAHIM Not Available Start: 03-01-2024 End: 03-01-2024 ambulatory JORDAN DUNCAN [facility] Start: 02-27-2024 End: 02-27-2024 ambulatory Tohper SAAVEDRA Facility:[facility] Start: 02-27-2024 End: 02-27-2024 Patient encounter procedure Topher SAAVEDRA [facility] Start: 01-31-2024 End: 01-31-2024 ambulatory Fernanda X Neha Facility:[facility] Start: 01-31-2024 End: 01-31-2024 Patient encounter procedure Fernanda Solomon [facility] Start: 01-10-2024 End: 01-10-2024 ambulatory BRODY IBRAHIM Not Available Start: 01-03-2024 End: 01-03-2024 ambulatory Topher SAAVEDRA Facility:[facility] Start: 12-06-2023 End: 12-06-2023 ambulatory BRODY IBRAHIM Not Available Start: 12-05-2023 End: 12-05-2023 ambulatory Topher SAAVEDRA Facility:[facility] [place] Start: 12-05-2023 End: 12-05-2023 Patient encounter procedure Topher SAAVEDRA [facility] Start: 11-09-2023 End: 11-09-2023 ambulatory JORDAN DUNCAN [facility] Start: 11-07-2023 End: 11-07-2023 ambulatory Topher SAAVEDRA Facility:[facility] Start: 11-07-2023 End: 11-07-2023 Patient encounter procedure Topher SAAVEDRA [facility] Start: 10-27-2023 End: 10-27-2023 ambulatory JORDAN DUNCAN Not Available Start: 10-12-2023 End: 10-12-2023 ambulatory JORDAN DUNCAN Not Available Start: 10-07-2023 End: 10-07-2023 ambulatory Topher SAAVEDRA Facility:[facility] Start: 10-07-2023 End: 10-07-2023 Patient encounter procedure Topher SAAVEDRA [facility] Start: 09-27-2023 End: 09-27-2023 ambulatory BRODY IBRAHIM Not Available Start: 09-09-2023 End: 09-09-2023 ambulatory Topher Smita KERI Facility:[facility] Start: 09-09-2023 End: 09-09-2023 Patient encounter procedure Topher Smita KERI [facility] Start: 08-15-2023 End: 08-15-2023 ambulatory [facility] Start: 08-15-2023 End: 08-15-2023 Patient encounter procedure Topher Smita KERI [facility] Start: 07-19-2023 Bamboo flowsheet Brody Tyler er DPM Work Phone: [facility] Start: 07-19-2023 Bamboo flowsheet Brody Tyler er DPM Work Phone: [facility] Start: 07-19-2023 End: 07-19-2023 Patient encounter procedure Brody Ibrahim DPM Work Phone: [facility] Comment on above: Dermatophytosis of n ail (Primary Dx); Dystrophic nail; Diabetic polyneuropathy associated with type 2 diabetes mellitus ([facility]/HCC); Nontraumatic amputation of foot, right ([facility]/HCC); Nontraumatic amputation of foot, left (CMS/HCC); Acquired keratoderma Start: 07-18-2023 End: 07-18-2023 ambulatory Topher Smita KERI Facility:[facility] Start: 07-18-2023 End: 07-18-2023 Patient encounter procedure Topher R KERI [facility] Start: 06-20-2023 End: 06-20-2023 ambulatory Topher Smita KERI Facility:[facility] Start: 06-20-2023 End: 06-20-2023 Patient encounter procedure Topher R SAAVEDRA [facility] Start: 05-09-2023 End: 05-09-2023 Patient encounter procedure Topher SAAVEDRA [facility] Start: 04-04-2023 End: 04-04-2023 Patient encounter procedure Topher R KERI [facility] [employer] Start: 02-08-2023 End: 02-08-2023 Patient encounter procedure JORDAN DUNCAN [facility] [employer] Start: 01-03-2023 End: 01-03-2023 Patient encounter procedure Topher R SAAVEDRA [facility] [employer] Start: 12-03-2022 End: 12-03-2022 Patient encounter procedure Topher SAAVEDRA [facility] [employer] Start: 11-05-2022 End: 11-05-2022 Patient encounter procedure Topher SAAVEDRA [facility] [employer] Start: 11-03-2022 End: 11-03-2022 Subsequent hospital visit by physician [facility] Room [facility] Comment on above: Polycythemia (Primar y Dx) Start: 10-25-2022 End: 10-26-2022 ambulatory ARNOLD PEOPLES Facility:[facility] Start: 10-05-2022 End: 10-06-[address] JORDAN DUNCAN . Facility:[facility] Start: 10-05-2022 End: 10-05-2022 Patient encounter procedure Topher SAAVEDRA [facility] Start: 09-30-2022 End: 09-30-[address] TOPHER SAAVEDRA . Facility:[facility] Start: 09-27-2022 End: 09-28-2022 ambulatory ARNOLD PEOPLES Facility:[facility] Start: 09-20-2022 End: 09-21-2022 ambulatory ENEDINA Schultz [facility] Facility:[facility] Start: 09-20-2022 Encounter for preprocedural cardiovascular examination DR TOPHER SAAVEDRA . [facility] Start: 09-20-2022 Encounter for preprocedural laboratory examination DR TOPHER SAAVEDRA . [facility] Start: 09-20-2022 Encounter for preprocedural respiratory examination DR TOPHER SAAVEDRA . [facility] Start: 09-15-2022 End: 09-16-[address] TOPHER SAAVEDRA . Facility:[facility] Start: 09-15-2022 End: 09-16-2022 Encounter for preprocedural laboratory examination DR TOPHER SAAVEDRA . Facility:[facility] Start: 09-06-2022 End: 09-06-2022 Patient encounter procedure Topher SAAVEDRA [facility] Start: 06-18-2022 End: 06-18-2022 Patient encounter procedure Topher SAAVEDRA [facility] Start: 05-20-2022 End: 05-21-2022 ambulatory ENEDINA Schultz [facility] Facility:[facility] Start: 05-17-2022 End: 05-17-2022 Patient encounter procedure Topher SAAVEDRA [facility] Start: 04-21-2022 End: 04-22-2022 ambulatory ENEDINA Schultz [facility] Facility:[facility] Start: 04-21-2022 End: 04-21-2022 Patient encounter procedure Mandy Husain Lujose [facility] [employer] Start: 04-09-2022 End: 04-10-2022 ambulatory [facility] Facility:[facility] Start: 03-31-2022 End: 03-31-2022 Patient encounter procedure Mandy ArinBinta Chavarriajose [facility] [employer] Start: 03-22-2022 End: 03-23-2022 ambulatory [facility] Facility:[facility] Start: 03-03-2022 End: 03-03-2022 Patient encounter procedure Mandy MBinta Chavarriajose [facility] [employer] Start: 02-01-2022 End: 02-01-2022 Patient encounter procedure [facility]EDRA [facility] Start: 01-28-2022 End: 01-28-2022 Subsequent hospital visit by physician Demetria Med Onc Lab Schedule [facility] Comment on above: Polycythemia (Primar y Dx) Start: 01-18-2022 End: 01-18-[address] JORDAN DUNCAN . Facility:[facility] Start: 01-06-2022 End: 01-07-2022 ambulatory [facility] Facility:[facility] Start: 12-21-2021 End: 12-21-2021 Patient encounter procedure Tpoher SAAVEDRA [facility] Start: 11-23-2021 End: 11-23-2021 Patient encounter procedure Topher SAAVEDRA [facility] [facility] [employer] Start: 10-26-2021 End: 10-26-2021 Patient encounter procedure Topher SAAVEDRA [facility] Start: 09-28-2021 End: 09-28-2021 Patient encounter procedure Topher SAAVEDRA [facility] Start: 08-31-2021 End: 08-31-2021 Patient encounter procedure Topher SAAVEDRA [facility] Start: 10-22-2020 End: 10-22-2020 Subsequent hospital visit by physician [facility] Room [address] [facility] Comment on above: Polycythemia (Primar y Dx) Start: 07-27-2019 End: 07-27-2019 Subsequent hospital visit by physician [facility] Med Onc Room [address] [facility] Comment on above: Polycythemia (Primar y Dx) Start: 03-13-2019 End: 03-13-2019 Subsequent hospital visit by physician [facility] Med Onc Room [address] [facility] Comment on above: Polycythemia (Primar y Dx) Start: 01-12-2019 End: 01-12-2019 Subsequent hospital visit by physician [facility] Med Onc Room [address] [facility] Start: 02-16-2018 End: 02-17-2018 Patient encounter DEFAULT PHYSICIAN Facility:[facility] Procedures Date Procedure Procedure Detail Performing [...] disease S/P JORY - LCX & RCA ([id number]. kabour) [facility] Schedule BACK SURGERY Topher SAAVEDRA Placement of stent Topher Maria LANDENWEN RECTAL CANCER SURGERY Agustin SAAVEDRA RIGHT VEIN REMOVED F ROM LEG Topher SAAVEDRA Plan of Treatment Date Care Activity Detail Author Start: 12-17-2030 Screening for malignant neoplasm of colon [facility] Start: 09-29-2025 Glaucoma screening Diabetes: Retinopathy Screening [facility] Start: 07-25-2025 Medicare Annual Wellness (AWV) Medicare Annual Wellness (AWV) [facility] Start: 02-21-2025 GFR test (Diabetes, CKD 3-4, OR last GFR 15-59) GFR test (Diabetes, CKD 3-4, OR last GFR 15-59) [facility] Start: 10-26-2024 End: 10-26-2024 Patient encounter procedure 10/26/2024 1:[address] [facility] [address] [place], [place] [id number] phlebotomy [facility] Comment on above: phlebotomy Start: 10-17-2024 End: 10-17-2024 Patient encounter procedure 10/17/2024 1:00 PM EDT Office Visit [facility] Part of [place] [id number] Newton Stevenson MD [address] [place] [address] F/U polycythemia, anal cancer [facility] Comment on above: F/U polycythemia, anal cancer Start: 10-04-2024 Urine screening for protein Diabetes: Urine Protein Screening [facility] Start: 09-18-2024 End: 09-18-2024 Patient encounter procedure [facility] Start: 08-25-2024 End: 03-27-2025 Comprehensive metabolic 2000 panel - Serum or Plasma Comprehensive metabolic panel Lab Routine Type 2 diabetes mellitus with diabetic polyneuropathy, without long-term current use of insulin (CMS/HCC) Essential hypertension (CMS/HCC) Expected: 08/25/2024, Expires: 03/27/2025 [facility] Work Phone: Comment on above: Expected: 08/25/2024, Expires: Start: 08-25-2024 End: 03-27-2025 Hemoglobin A1c/Hemoglobin.total in Blood Hemoglobin A1c Lab Routine Type 2 diabetes mellitus with diabetic polyneuropathy, without long-term current use of insulin ([facility]) Expected: 08/25/2024, Expires: 03/27/2025 [facility] Comment on above: Expected: 08/25/2024, Expires: Start: 08-25-2024 End: 03-27-2025 Lipid 1996 panel - Serum or Plasma Lipid panel Lab Routine Mixed hyperlipidemia ([facility]) Expected: 08/25/2024, Expires: 03/27/2025 [facility] Comment on above: Expected: 08/25/2024, Expires: Start: 07-25-2024 End: 07-25-2024 Patient encounter procedure 07/25/2024 11:00 AM EST Office Visit [facility] [address] [facility] [address] [place] [address] Jordan Duncan MD [address] [facility] [address] [place] [address] Encounter for Medicare annual wellness exam; Advance directive in chart; Encounter for screening for other disorder; Screening for alcohol problem; Morbid (severe) obesity due to excess calories ([facility]); Body mass index (BMI) 40.0-44.9, adult ([facility]) [facility] Comment on above: Encounter for Medicare annual wellness e xam; Advance directive in chart; Encounter for screening for other disorder; Screening for alcohol problem; Morbid (severe) obesity due to excess calories ([facility]); Body mass index (BMI) 40.0-44.9, adult ([facility]) Start: 06-21-2024 Hemoglobin A1c measurement Diabetes: Hemoglobin A1C [facility] Start: 05-17-2024 Medicare Annual Wellness (AWV) Medicare Annual Wellness (AWV) [facility] Start: 05-15-2024 End: 05-15-2024 Patient encounter procedure 05/15/2024 10:15 AM EST Office Visit [facility] [address] [place] [address] Brody Ibrahim DPM [address] [place] [address] [facility] Start: 04-23-2024 End: 04-23-2024 Patient encounter procedure 04/23/2024 11:00 AM EST Office Visit [facility] [address] [place] [address] Brody Ibrahim DPM [address] [place] [address] [facility] Start: 04-09-2024 End: 04-09-2024 Patient encounter procedure 04/09/2024 9:30 AM EST Office Visit [facility] [address] [place] [address] Jordan Duncan MD [address] [place] [address] [facility] Start: 03-29-2024 End: 03-29-2024 Patient encounter procedure 03/29/2024 1:00 PM EDT Office Visit [facility] [address] [place] [address] Brody Ibrahim DP [address] [place] [address] Arrived [facility] Comment on above: Arrived Start: 03-27-2024 End: 03-27-2024 Patient encounter procedure 03/27/2024 2:00 PM EDT Office Visit [facility] [address] [place] [address] Jordan Duncan MD [address] [place] [address] Type 2 diabetes mellitus with diabetic polyneuropathy, without long-term current use of insulin (CMS/HCC); Essential hypertension (CMS/HCC); Microalbuminuria; Diabetic foot (CMS/HCC); Mixed hyperlipidemia (CMS/HCC); Adverse reaction to statin medication; Former smoker; Morbid obesity ([facility]/HCC) [facility] 100 Comment on above: Type 2 diabetes mellitus with diabetic p olyneuropathy, without long-term current use of insulin (CMS/HCC); Essential hypertension (CMS/HCC); Microalbuminuria; Diabetic foot (CMS/HCC); Mixed hyperlipidemia (CMS/HCC); Adverse reaction to statin medication; Former smoker; Morbid obesity ([facility]/HCC) Start: 03-13-2024 End: 03-13-2024 Patient encounter procedure 03/13/2024 9:45 AM EDT Office Visit [facility] [address] [place] [phone] Brody Ibrahim DPM [address] [place] [address] Arrived [facility] Comment on above: Arrived Start: 02-05-2024 COVID-19 Vaccine ( season) COVID-19 Vaccine ( season) [facility] Start: 02-05-2024 Influenza vaccination Influenza Vaccine (#1) [facility] Start: 01-05-2024 Hemoglobin A1c measurement Diabetes: Hemoglobin A1C [facility] Start: 11-26-2023 Glaucoma screening Diabetes: Retinopathy Screening [facility] Start: 10-29-2023 GFR test (Diabetes, CKD 3-4, OR last GFR 15-59) GFR test (Diabetes, CKD 3-4, OR last GFR 15-59) [facility] Start: 10-26-2023 End: 10-26-2023 Patient encounter procedure 10/26/2023 Office Visit Oncology Newton Stevenson MD [address] [place] [address] [facility] Start: 10-12-2023 End: 10-12-2023 Patient encounter procedure 10/12/2023 9:30 AM EDT Office Visit [facility] [address] [facility] [address] Jordan Duncan MD [address] [place] [address] (Fax) [facility] Start: 09-27-2023 End: 09-27-2023 Patient encounter procedure 09/27/2023 11:00 AM EDT Procedure Visit [facility] [address] [place] [phone] Brody Ibrahim DPM [address] [place], [place] [phone] [facility] Start: 07-14-2023 Hemoglobin A1c measurement Diabetes: Hemoglobin A1C [facility] Start: 05-02-2023 Annual Wellness Visit (Medicare) Annual Wellness Visit (Medicare) [facility] Start: 10-20-2022 End: 10-20-2022 Patient encounter procedure 10/20/2022 Office Visit Oncology Newton Stevenson MD [address] [place], [place] [phone] [facility] Start: 09-24-2022 Hemoglobin A1c measurement A1C test (Diabetic or Prediabetic) [facility] Start: 02-04-2022 Influenza vaccination Flu vaccine (#1) [facility] Start: 11-11-2021 Urine screening for protein [facility] Start: 10-21-2021 End: 10-21-2021 Patient encounter procedure 10/21/2021 Office Visit Oncology Newton Stevenson MD [address] [place], [place] [id number] [facility] Start: 10-16-2021 COVID-19 Vaccine (4 - Booster for Pfizer series) COVID-19 Vaccine (4 - Booster for Pfizer series) [facility] [employer] [facility] Start: 10-14-2021 Lipid panel [facility] Start: 10-24-2019 End: 10-24-2019 Office Visit [facility] Start: 07-31-2019 End: 07-31-2019 Appointment 07/31/[address] [facility] Start: 04-30-2019 End: 04-30-2019 Appointment 04/30/[address] [facility] Start: 02-04-2019 Influenza vaccination Flu vaccine (#1) [place] Start: 11-26-2018 Annual Wellness Visit (AWV) Annual Wellness Visit (AWV) [facility] [employer] Start: 08-17-2017 Creatinine measurement Creatinine monitoring [facility] [employer] Phone: Start: 08-17-2017 Creatinine monitoring Creatinine monitoring [place], [place] Start: 08-17-2017 Potassium monitoring Potassium monitoring [place], [place] Start: 08-04-2017 A1C test (Diabetic or Prediabetic) A1C test (Diabetic or Prediabetic) [place] Start: 08-04-2017 Hemoglobin A1c measurement A1C test (Diabetic or Prediabetic) [facility] Start: 02-10-2017 Abdominal aortic aneurysm screening AAA screen [facility] [employer] Start: 02-10-2017 Pneumococcal 65+ years Vaccine (1 of 2 - PCV13) Pneumococcal 65+ years Vaccine (1 of 2 - PCV13) [place] Start: 01-29-2017 Shingles Vaccine (2 of 3) Shingles Vaccine (2 of 3) [facility] [employer] Start: 02-10-2015 Annual Wellness Visit (AWV) Annual Wellness Visit (AWV) [place] Start: 2012 Respiratory Syncytial Virus (RSV) or age 60 yrs+ (1 - Risk 60-74 years 1-dose series) Respiratory Syncytial Virus (RSV) or age 60 yrs+ (1 - Risk 60-74 years 1-dose series) [facility] Start: 02-10-2002 Colon cancer screen colonoscopy Colon cancer screen colonoscopy [place], [place] Start: 02-10-2002 Screening for malignant neoplasm of colon Colon cancer screen colonoscopy [facility] [employer] Phone: Start: 02-10-2002 Shingles Vaccine (1 of 2) Shingles Vaccine (1 of 2) [place], [place] Start: 02-10-1997 Screening for malignant neoplasm of colon [facility] Start: 02-10-1971 DTaP/Tdap/Td vaccine (1 - Tdap) DTaP/Tdap/Td vaccine (1 - Tdap) [facility] Start: 02-10-1971 Hepatitis B vaccine (1 of 3 - Risk 3-dose series) Hepatitis B vaccine (1 of 3 - Risk 3-dose series) [place] Start: 02-10-1970 Diabetic microalbuminuria test Diabetic microalbuminuria test [place] Start: 02-10-1970 Diabetic retinal exam Diabetic retinal exam [facility] Start: 02-10-1970 Glaucoma screening Diabetic retinal exam [facility] Start: 02-10-1970 Hepatitis C screening Hepatitis C screen [facility] Start: 02-10-1970 Urine screening for protein Diabetic Alb to Cr ratio (uACR) test [facility] Start: 1964 Depression Screen Depression Screen [facility] Start: 02-10-1963 DTaP/Tdap/Td vaccine (1 - Tdap) DTaP/Tdap/Td vaccine (1 - Tdap) [place] Start: 02-10-1962 [object Object] Diabetic foot exam [place] Start: 02-10-1962 Diabetic foot examination Diabetic foot exam [facility] Start: 02-10-1962 Diabetic retinal exam Diabetic retinal exam [place] Start: 02-10-1962 Lipid panel [facility] Start: 02-10-1962 Lipid screen Lipid screen [place], [place] Start: 1952 Annual Wellness Visit (AWV) Annual Wellness Visit (AWV) [facility] Start: 1950 Hepatitis C screen Hepatitis C screen [place], [place] Start: 1952 Hepatitis C screening Hepatitis C screen [facility] [employer] Phone: Start: 1950 Screening for malignant neoplasm of colon [facility] End: 07-05-2024 Phlebotomy therapeutic Phlebotomy therapeutic Procedures Routine One Time for 1 Occurrences starting 07/05/2024 until 07/05/2024 Kitty Quiroz [facility] Work Phone: Comment on above: One Time for 1 Occurrences starting 06/08 until 07/05/2024 Immunizations Immunization Date Immunization Notes Care Provider Shania walsh 03-28-2024 influenza, seasonal, injectable Brody Ibrahim DPM Work Phone: [facility] 03-28-2024 Seasonal trivalent influenza vaccine, adjuvanted, preservative free Brody Ibrahim DPM Work Phone: [facility] 02-28-2023 influenza virus vacc ine, unspecified formulation Topher SAAVEDRA [facility] 02-28-2023 Influenza, Seasonal, Quadrivalent, Adjuvanted Brody Ibrahim DPM Work Phone: [facility] 04-16-2022 influenza virus vacc ine, unspecified formulation oTpher SAAVEDRA [facility] 04-16-2022 Influenza, Seasonal, Quadrivalent, Adjuvanted Brody Ibrahim DPM Work Phone: [facility] 03-23-2022 Moderna Bivalent Simmons ster Vaccination Brody Ibrahim DPM Work Phone: [facility] 03-23-2022 Moderna SARS-CoV-2 50mcg/0.5mL Booster Brody Ibrahim DPM Work Phone: [facility] 03-23-[address] 12 Years And Older Brody Ibrahim DPM Work Phone: [facility] 03-23-2022 SARS-CoV-2 (COVID-19 ) [id number] Topher SAAVEDRA [facility] 06-18-2021 SARS-CoV-2 (COVID-19 ) mRNA BNT-162b2 vax Topher SAAVEDRA [facility] 05-06-2021 influenza virus vacc ine, unspecified formulation Topher SAAVEDRA [facility] 05-06-2021 Influenza, Seasonal, Quadrivalent, Adjuvanted Brody Ibrahim DPM Work Phone: [facility] 05-06-2021 SARS-CoV-2 (COVID-19 ) Ad26 vaccine, recombinant Topher SAAVEDRA [facility] 08-28-2020 SARS-CoV-2 (COVID-19 ) mRNA BNT-162j7 vax Topher SAAVEDRA [facility] 08-28-2020 SARS-CoV-2, Unspecified Garry Ibrahim DPM Work Phone: [facility] 08-27-2020 Pfizer Purple Cap SARS-CoV-2 Vaccination Brody Ibrahim DPM Work Phone: [facility] 08-08-2020 SARS-CoV-2 (COVID-19 ) mRNA BNT-162b2 vax Topher SAAVEDRA [facility] Comment on above: Result Comment: 2022: [id number] 08-08-2020 SARS-CoV-2, Unspecified Garry Ibrahim DPM Work Phone: [facility] 08-07-2020 Pfizer Purple Cap SARS-CoV-2 Vaccination Brody Ibrahim DPM Work Phone: [facility] 08-04-2020 SARS-CoV-2 (COVID-19 ) Ad26 vaccine, recombinant Topher SAAVEDRA [facility] 03-22-2020 influenza virus vacc ine, unspecified formulation Topher SAAVEDRA [facility] 03-22-2020 Influenza, Seasonal, Quadrivalent, Adjuvanted Brody Rusher DPM Work Phone: [facility] 03-06-2019 pneumococcal conjuga te vaccine, 13 valent Topher SAAVEDRA [facility] 03-05-2019 influenza virus vacc ine, unspecified formulation Topher SAAVEDRA [facility] 03-05-2019 influenza, high dose seasonal, preservative-free Brody Rusher DPM Work Phone: [facility] 03-05-2019 pneumococcal polysaccharide vaccine, 23 valent Topher SAAVEDRA [facility] 03-04-2019 Influenza, High-dose Seasonal, Quadrivalent, Preservative Free Brody Rusher DPM Work Phone: [facility] 03-04-2019 pneumococcal polysaccharide vaccine, 23 valent Brody Rusher DPM Work Phone: [facility] 03-03-2018 influenza virus vacc ine, unspecified formulation Topher SAAVEDRA [facility] 03-03-2018 influenza, high dose seasonal, preservative-free Brody Rusher DPM Work Phone: [facility] 03-03-2018 pneumococcal conjuga te vaccine, 13 valent Topher SAAVEDRA [facility] 03-03-2018 pneumococcal polysaccharide vaccine, 23 valent Brody Rusher DPM Work Phone: [facility] 03-02-2018 pneumococcal conjuga te vaccine, 13 valent Brody Rusher DPM Work Phone: [facility] 04-06-2017 influenza virus vacc ine, unspecified formulation Topher SAAVEDRA [facility] 04-06-2017 influenza, injectabl e, quadrivalent, preservative free Brody Ibrahim DPM Work Phone: [facility] 12-04-2016 pneumococcal polysaccharide vaccine, 23 valent Topher SAAVEDRA [facility] 12-04-2016 zoster vaccine, live Topher SAAVEDRA [facility] 03-06-2016 Influenza Vaccine, unspecified formulation Mthz Schedule [facility] 03-06-2016 influenza virus vacc ine, H5N1, A/[place] (national stockpile) Brody Ibrahim DPM Work Phone: [facility] 03-06-2016 influenza virus vacc ine, unspecified formulation Brody Ibrahim DPM Work Phone: [facility] 03-06-2016 Influenza, High-dose Seasonal, Quadrivalent, Preservative Free Brody Ibrahim DPM Work Phone: [facility] 03-06-2016 influenza, unspecifi ed formulation Topher SAAVEDRA [facility] 01-23-2016 influenza virus vacc ine, unspecified formulation Topher SAAVEDRA [facility] 01-23-2016 influenza, injectabl e, quadrivalent, preservative free Brody Ibrahim DPM Work Phone: [facility] 06-06-2015 pneumococcal polysaccharide vaccine, 23 valent Topher SAAVEDRA [facility] 03-23-2014 influenza virus vacc ine, unspecified formulation Topher SAAVEDRA [facility] 03-23-2014 influenza, seasonal, injectable Brody Ibrahim DPM Work Phone: [facility] 04-06-2013 influenza virus vacc ine, unspecified formulation Topher SAAVEDRA [facility] 04-06-2013 influenza, seasonal, injectable Brody Ibrahim DPM Work Phone: [facility] 04-06-2013 zoster vaccine, live Topher SAAVEDRA [facility] 04-05-2013 zoster vaccine, live Brody Ibrahim DPM Work Phone: [facility] 04-21-2009 novel influenza-H1N1 -09, preservative-free, injectable Brody Ibrahim DPM Work Phone: [facility] Payers Date Payer Category Payer Private Health Insurance A[employer] Ri mber [id number] 2022 Unknown 2017 Medicare [id number] 2017 Medicare xxxxxxxxxxx [id number] 1959 Medicare [id number] .[id number] 1959 Private Health Insurance [facility] [id number] .[id number] 1952 Unknown [id number] 2.16.840.1.907242.3.579.2 .593 1952 Unknown [id number] 2.16.840.1.476199.3.579.2 .593 1952 Unknown [id number] 2.16.840.1.589765.3.579.2 .593 1952 Unknown [id number] 2.16.840.1.784318.3.579.2 .593 1952 Unknown [id number] 2.16.840.1.655792.3.579.2 .593 1952 Unknown [id number] 2.16.840.1.431480.3.579.2 .593 1952 Unknown [id number] 2.16.840.1.223427.3.579.2 .593 1952 Unknown [id number] 2.16.840.1.267742.3.579.2 .593 1952 Unknown [id number] 2.16.840.1.461440.3.579.2 .593 1952 Unknown [id number] 2.16.840.1.461521.3.579.2 .593 1952 Unknown [id number] 2.16.840.1.819109.3.579.2 .593 1952 Unknown [id number] 2.16.840.1.569299.3.579.2 .593 1952 Unknown [id number] 2.16.840.1.714987.3.579.2 .727 1952 Unknown [id number] 2.16.840.1.720068.3.579.2 .727 1952 Unknown [id number] 2.16.840.1.405791.3.579.2 .727 1952 Unknown [id number] 2.16.840.1.953826.3.579.2 .727 1952 Unknown [id number] 2.16.840.1.744103.3.579.2 .1952 Unknown [id number] 2.16.840.1.731498.3.579.2 .1952 Unknown [id number] 2.16.840.1.119709.3.579.2 .1952 Unknown [id number] 2.16.840.1.938035.3.579.2 .1952 Unknown [id number] 2.16.840.1.931748.3.579.2 .1952 Unknown [id number] 2.16.840.1.163081.3.579.2 .1952 Unknown [id number] 2.16.840.1.842308.3.579.2 .1952 Unknown [id number] 2.16.840.1.829935.3.579.2 .1952 Unknown [id number] 2.16.840.1.037574.3.579.2 .1952 Unknown [id number] 2.16.840.1.316987.3.579.2 .1952 Unknown [id number] 2.16.840.1.209083.3.579.2 .1952 Unknown [id number] 2.16.840.1.288854.3.579.2 .173 1952 Unknown [id number] 2.16.840.1.425474.3.579.2 .1952 Unknown [id number] 2.16.840.1.098866.3.579.2 .173 1952 Unknown [id number] 2.16.840.1.991843.3.579.2 .1259 1952 Unknown [id number] 2.16.840.1.679089.3.579.2 .1258 1952 Unknown [id number] 2.16.840.1.966833.3.579.2 .9 1952 Unknown [id number] 2.16.840.1.413760.3.579.2 .1258 1952 Unknown [id number] 2.16.840.1.281903.3.579.2 .1258 1952 Unknown [id number] 2.16.840.1.437481.3.579.2 .1258 1952 Unknown [id number] 2.16.840.1.943713.3.579.2 .1258 1952 Unknown [id number] 2.16.840.1.999559.3.579.2 .1258 1952 Unknown [id number] 2.16.840.1.145079.3.579.2 .1258 1952 Unknown [id number] 2.16.840.1.100270.3.579.2 .1258 1952 Unknown [id number] 2.16.840.1.764227.3.579.2 .9 Medicare [id number] Social History Date Type Detail Facility Start: 10-18-2018 End: 12-06-2023 Tobacco smoking status NHIS Former [place] Start: 08-31-1979 End: 06-06-2012 History of tobacco use Current [place] Start: 10-18-2018 End: 07-25-2024 Cigarettes smoked current (pack per day) - Reported [facility] Start: 10-18-2018 End: 07-25-2024 Alcohol intake No [place] Start: 01-23-2014 End: 11-02-2023 [facility] 1950 Sex Assigned At Not on file M [place], [place] Start: 10-18-2018 End: 11-02-2023 Alcohol intake Current non-drinker of alcohol (finding) [place] Start: 10-22-2020 End: 12-06-2023 Tobacco use and exposure Never used [facility] [employer] Start: 01-18-2022 End: 01-28-2022 Exposure to SARS-CoV-2 (event) [facility] Start: 08-31-1979 End: 06-06-2012 History of tobacco use Cigarette Smoker KITTY QUIROZ [facility] [employer] Work Phone: Start: 05-17-2023 End: 07-25-2024 Alcohol intake Current drinker of alcohol (finding) [...] 05-21-2024 Functional Status N/A [facility] 12-05-2023 Functional Status N/A [facility] 06-20-2023 Functional Status N/A [facility] 11-05-2022 Functional Status N/A [facility] 06-18-2022 Functional Status N/A [facility] 05-17-2022 Functional Status N/A [facility] 02-01-2022 Functional Status N/A [facility] Clinical Notes 10-22-2020 to 07-25-2024 Jordan Duncan MD - 07/25/2024 11:00 AM Luh Lugo RN - 07/05/2024 1:00 PM ESTTelephone Encounter - Jordan Duncan MD - 06/18/2024 7:50 AM ESTPatient InstructionsPatient Instructions Note Date & Type Note Facility 07-25-2024 History of Present illness Narrative Images from the original note were not included. Subjective : Chief Complaint: Juan Miguel Jennings is an 74 y.o. male here for an annual wellness visit. I have reviewed and reconciled the history and medication list with the patient today. Current Outpatient Medications Medication Sig Dispense Refill aspirin 81 MG EC tablet Take 1 tablet (81 mg) by mouth in the morning. cholecalciferol (Vitamin D-3) 50 MCG (1999 UT) tablet Take by mouth. cyclobenzaprine (Flexeril) [...] 1 capsule by mouth in the morning. oxybutynin XL (Ditropan-XL) 5 MG 24 hr [...] mg in the evening. Take after meals. timolol (Timoptic) 0.5 % ophthalmic solution Administer 1 drop into both eyes in the morning and 1 drop before bedtime. amLODIPine (Norvasc) 5 MG tablet Take 5 mg by mouth Daily (Patient not taking: Reported on 07/25/2024) isosorbide mononitrate ER (Imdur) 30 MG 24 hr tablet Take 30 mg by mouth Daily (Patient not taking: Reported on 07/25/2024) testosterone cypionate (Depo-Testosterone) 200 MG/ML injection Inject 200 mg into the shoulder, thigh, or buttocks every 28 (twenty-eight) days. (Patient not taking: Reported on 07/25/2024) No current facility-administered medications for this visit. Review of Systems unremarkable except as mentioned List of current healthcare providers: Patient Care Team: Jordan Duncan MD as PCP - General (Family Medicine) Jordan Duncan MD as PCP - [facility] Cy Binta Henson DO as Referring Physician (Orthopaedic Surgery) Broyd Ibrahim DPM as Referring Physician (Podiatry) Anuja Huddleston MD as Referring Physician (Family Medicine) Topher Saavedra MD as Referring Physician (Urology) Kitty Edmond OD as Referring Physician (Optometry) Medicare Annual Visit Health Risk Assessment Form Do you need help eating, bathing, using the toilet, dressing, or getting around your home?: No Can you prepare your own meals?: Yes Can you do your own housework without help?: Yes Can you shop for groceries or clothes without help?: Yes Do you exercise for about 20 minutes 3 or more days a week?: Yes How confident are you that you can control and manage most of your health problems?: Very confident Can you mange your money, credit cards and accounts, pay bills and taxes?: Yes Vision Screening: Yes, patient sees regular senior 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 Physical Exam The patient is pleasant and in no acute distress The patient has good eye contact and clear speech Assessment/Plan : The following health maintenance schedule was reviewed with the patient and provided in printed form in the after visit summary: Health Maintenance Topic Date Due Diabetes: Urine Protein Screening 11/11/2021 Medicare Annual Wellness (AWV) 05/17/2024 Diabetes: Hemoglobin A1C 06/21/2024 Diabetes: Retinopathy Screening 09/29/2025 Colorectal Cancer Screening 12/17/2030 Influenza Vaccine Completed Pneumococcal Vaccine: 65+ Years Completed 1. Encounter for Medicare annual wellness exam (Primary) The patient is here for their Annual Medicare Wellness visit. Demographics were updated. Self-assessment was completed and reviewed. Past medical, family, and social history were updated. The medication list updated and reviewed by the doctor. A list of other current medical providers is established and updated. Time was spent discussing health maintenance issues, ordering testing as appropriate, and a schedule was reviewed regarding recommended screening. We discussed safety issues and fall risk. Depression screening was completed and addressed as appropriate. Fall screening was completed and addressed. Cognitive function was assessed by direct observation, cognitive screening as indicated, and assessment of ability to perform ADL's. The BMI and discussed. Major risk factors for chronic disease including family history were discussed. An after visit summary is made available to the patient 2. Advance directive in chart No changes to advanced directives 3. Encounter for screening for other disorder Clinically insignificant depression screening 4. Screening for alcohol problem Negative alcohol screen 5. Morbid (severe) obesity due to excess calories ([facility]) Patient has lost some weight but with his comorbid conditions he still meets the criteria for morbid obesity. 6. BMI 39.0-39.9,adult Defines the morbid obesity 7. Type 2 diabetes mellitus with diabetic polyneuropathy, without long-term current use of insulin ([facility]) Chronic problem, stable, monitored longitudinally. 8. Type 2 diabetes mellitus with diabetic microalbuminuria, without long-term current use of insulin ([facility]) Chronic problem, stable, monitored longitudinally. 9. Type 2 diabetes mellitus with foot ulcer (CODE) ([facility]) Chronic problem, stable, monitored longitudinally. Primarily managed by Podiatry 10. Non-pressure chronic ulcer of other part of unspecified foot with unspecified severity (CMS/HCC) Chronic problem, stable, monitored longitudinally.Primarily managed by Podiatry 11. 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 Partial nontraumatic amputation of foot, left (CMS/HCC) Chronic problem, stable, monitored longitudinally.Primarily managed by Podiatry 13. Atherosclerosis of [place] coronary artery of [place] heart without angina pectoris (CMS/HCC) Chronic problem, stable, monitored longitudinally. Comanaged with Cardiology 14. History of myocardial infarction (CMS/HCC) Chronic problem, stable, monitored longitudinally.Comanaged with Cardiology 15. Mixed hyperlipidemia (CMS/HCC) Chronic problem, stable, monitored longitudinally.Comanaged with Cardiology 16. Adverse reaction to statin medication Diagnosis for exclusion from the HEDIS measures for statin use. 17. Primary open angle glaucoma of both eyes, unspecified glaucoma stage (CMS/HCC) Managed by Ophthalmology Electronically signed by Jordan Duncan MD on July 25, 2024 documented in this encounter [facility] 07-16-2024 Note [place] [facility] Subjective Juan Miguel Jennings is a [...] of colon cancer Testicular hypofunction Hx of nursing home use of blood thinners Internal derangement of [...] man with prior history of CAD, s/p AZ and stenting procedures in the past. He [...] the left s (more content not included)... [facility] 07-05-2024 History of Present illness Narrative Pt [...] Denies any dizziness. documented in this encounter [facility] 06-18-2024 Telephone encounter Note Prescription sent [facility] 06-18-2024 Miscellaneous Notes Prescription sent Bret left a message requesting a refill on his Famotidine to [facility] in [place]. documented in this encounter [facility] 06-18-2024 Telephone encounter Note Bret left a message requesting a refill on his Famotidine to [facility] in [place]. [facility] 06-08-2024 Note Application for Signal Patterns filled out for patient. Requires patient signature. Will notify Cardiology technical support engineer to coordinate signature by patient. Application uploaded to media. Patient will come to Cardiology clinic to sign. Iron Bess PharmD Cardiology Outpatient Clinical Pharmacist 06/14/24 [facility] 06-08-2024 Note Contacted patient to discuss lipids management. Reviewed mechanism of action, side effects, and administration of Repatha with patient; pt agreeable to start. Will send RX to assess costs. Of note, pt may qualify for patient assistance [employer]. Will fill out paperwork and send to Cardiology to assist in obtaining signature and income documents. Iron Bess PharmD Cardiology Outpatient Clinical Pharmacist 06/11/24 [facility] 06-08-2024 [facility] - [facility]ids Provider: Dr. Huddleston Department: Cardiology Juan Miguel Jennings is a 74 y.o. male with PMH of CAD s/p AZ and stents, HTN, HLD, MO w/ CPAP, [...] Bess PharmD Cardiology Outpatient Clinical Pharmacist 06/11/24 [facility] 05-21-2024 Hospital Discharge instructions Patient Education 05/21/2024 [...] your health care provider. General instructions Take aqnm-mpd-xukjgcq and prescription medicines only as told by [...] provider. Document Revised: 02/09/2021 Document Reviewed: 02/09/2021 [employer] Patient Education 2023 [employer]. Follow Up Care 02/27/2024 09:12:26 With:KERI NOLASCO, Topher Ordoñez, URL Address: [facility] [address] , [place] [address]- When: Unknown [facility] 05-21-2024 Evaluation + Plan note Diagnostic Tests PendingTestosterone Level Total 05/21/24CBC w/ Auto Diff 05/21/24 [facility] 05-21-2024 Note Patient Education Obstetrics and [...] health care provider. General instructions ??? Take lgzv-grh-acvhuam and prescription medicines only as told by [...] drink, and whe (more content not included)... [facility] 05-15-2024 History of Present illness Narrative [...] 2010 Geraldo Raza CATARACT EXTRACTION Left 2019 [facility] OTHER SURGICAL HISTORY 03/2017 lesions on bottom of both feet, [facility] OTHER SURGICAL HISTORY 4 stents RebeccaGeraldo barajas [...] Brody Ibrahim DPM documented in this encounter [facility] 05-15-2024 Instructions Brody Ibrahim DPM - 05/15/2024 10:15 AM EST As noted documented in this encounter [facility] 05-02-2024 Note [facility] SUBJECTIVE Chief Complaint Patient presents with Coronary Artery Disease Hypertension Juan Miguel Jennings is a 74 y.o. male here for follow-up. HPI PMHx: CAD s/p AZ and stenting, HTN, HLD, MO and wears [...] of colon cancer Testicular hypofunction Hx of nursing home use of blood thinners Internal derangement of [...] Rfl: Physical Exa (more content not included)... [facility] 05-02-2024 Note Patient here for 1 y [...] All other systems reviewed and are negative. [facility] 04-23-2024 History of Present illness Narrative Images from the original note were not included. Subjective Patient ID: Juan Miguel Jennings is a 74 y.o. 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 [...] Brody Ibrahim DPM documented in this encounter [facility] 04-23-2024 Instructions Brody Ibrahim DPM - 04/23/2024 11:00 AM EST Instructions as noted documented in this encounter [facility] 04-09-2024 Telephone encounter Note Custom orthotics arrived senthil Gruber [facility] 04-09-2024 Miscellaneous Notes Custom orthotics arrived senthil Gruber documented in this encounter [facility] 03-29-2024 History of Present illness Narrative [...] 2010 Geraldo Raza CATARACT EXTRACTION Left 2019 [facility] OTHER SURGICAL HISTORY 03/2017 lesions on bottom of both feet, [facility] OTHER SURGICAL HISTORY 4 stents [...] Measurements obtained in the weight-bearing position utilizing RuffWire device. Foam impressions obtained simulated weight-bearing. Patient [...] Brody Ibrahim DPM documented in this encounter [facility] 03-29-2024 Instructions Brody Ibrahim DPM - 03/29/2024 1:00 PM EDT As noted documented in this encounter [facility] 03-27-2024 History of Present illness Narrative [...] with Hgb A1C. Also this is a bcgg-ar-izve visit for consideration for diabetic shoes. Patient [...] polyneuropathy, without long-term current use of insulin ([facility]) (Primary) Chronic problem, stable, to goal. Patient has multiple podiatric issues. The forms from Podiatry were reviewed. Patient's feet were examined. I concur with the forms from Podiatry. Diabetic shoes are medically indicated. I certify that I had a gbtg-io-mvnk encounter with this patient at todays office visit. Due to this medical condition the patient requires DME. I certify that based on my findings The DME ordered is medically necessary for this patient. This has been discussed with the patient and/or their automotive leasing sales representative and mutually agreed upon. See [...] 5. Partial nontraumatic amputation of right foot ([facility]) Comorbid condition currently being managed by Podiatry 6. Partial nontraumatic amputation of foot, left ([facility]) Comorbid condition currently being managed by Podiatry 7. Venous stasis dermatitis of both lower extremities Chronic problem, stable. Does not appear to be progressing significantly. Discussed the importance of keeping the area moisturized. 8. Type 2 diabetes mellitus with diabetic microalbuminuria, without long-term current use of insulin ([facility]) Chronic problem, stable, to goal. [...] stratification for cardiovascular disease. 10. Essential hypertension ([facility]) In prescribing a renewal to [...] changes as able documented in this encounter [facility] 03-13-2024 History of Present illness Narrative Images from the original note were not included. Subjective Patient ID: Juan Miguel Jennings is a 74 y.o. male who presents for FUV (uJan Miguel Jennings is a 73 y.o. male [...] Saavedra, TBH TOTAL KNEE ARTHROPLASTY Right 2014 AnuAlexsander witt [...] Brody Ibrahim DPM documented in this encounter [facility] 03-13-2024 Instructions Brody Ibrahim DPM - 03/13/2024 9:45 AM EDT As noted documented in this encounter [facility] 12-05-2023 Hospital Discharge instructions Patient Education [...] therapy. Follow these instructions at home: Take ulhl-htg-ffcdynt and prescription medicines only as told by [...] provider. Document Revised: 01/22/2021 Document Reviewed: 01/22/2021 [employer] Patient Education 2022 [employer]. Follow Up Care 12/05/2023 07:35:26 With:KERI NOLASCO, Topher Ordoñez, URL Address: [facility] [address] [place] [address]- [phone] When: Unknown [facility] 12-05-2023 Note Patient Education Urology Hypogonadism, [...] Follow these instructions at home: ? Take xtuy-oti-lvdiqha and prescription medicines only as told by [...] provider. Document Revised: (more content not included)... [facility] 11-07-2023 Hospital Discharge instructions Follow Up Care 11/07/2023 08:41:09 With:KERI NOLASCO, Topher Ordoñez, URL Address: [facility] [address] , [place] [address] [phone] When: Unknown [facility] 07-19-2023 History of Present illness Narrative [...] 2023; effectively healed following treatment at [facility] wound Center. Currently relates no bleeding [...] with wound right foot; effectively managed at [facility] wound care center. Care plan: conservative and [...] Brody Ibrahim DPM documented in this encounter [facility] 07-19-2023 Instructions Brody Ibrahim DPM - 07/19/2023 10:30 AM EST As noted documented in this encounter [facility] 06-20-2023 Hospital Discharge instructions Patient Education [...] therapy. Follow these instructions at home: Take xjar-ldh-zpevkyr and prescription medicines only as told by [...] provider. Document Revised: 01/22/2021 Document Reviewed: 01/22/2021 [employer] Patient Education 2022 [employer]. Follow Up Care 02/08/2023 12:23:35 With:KERI NOLASCO, Topher Ordoñez, URL Address: [facility] [address], [place] [phone] When: Unknown Comments:6 mos w/ PSA and T level (pt to also get PSA now) [facility] 11-05-2022 Hospital Discharge instructions Patient Education [...] urethra. Follow these instructions at home: Take jhhy-mcl-bpcoptc and prescription medicines only as told by [...] provider. Document Revised: 12/09/2021 Document Reviewed: 12/09/2021 [employer] Patient Education 2022 [employer]. Follow Up Care 05/17/2022 10:46:35 With:KERI NOLASCO, Topher Ordoñez, URL Address: [facility] [address], [place] [address]- When: Unknown [facility] 11-03-2022 History of Present illness Narrative [...] see for visit documented in this encounter [facility] Work Phone: 09-15-2022 Note EXAM: XR CHEST 2 V HISTORY: Pre-surgery evaluation COMPARISON: None. TECHNIQUE: PA and lateral views of the chest. FINDINGS: The cardiomediastinal silhouette is normal. No focal consolidation is identified. There is no pneumothorax. No pleural effusion is noted. The osseous structures are intact. IMPRESSION: No acute cardiopulmonary process. Electronically authenticated by: DARRIUS BOLTON Date: 2022-09-15 12:[address] [facility] 06-18-2022 Hospital Discharge instructions Patient Education [...] urethra. Follow these instructions at home: Take mklt-vpr-chcoquw and prescription medicines only as told by [...] 05/23/2006 Document Revised: 04/17/2019 Document Reviewed: 06/27/2017 [employer] Patient Education 2020 [employer]. Follow Up Care 06/14/2022 09:33:13 With:KERI NOLASCO, Topher Ordoñez, URL Address: [address] [place], [place] [id number]- When: Unknown [facility] 05-17-2022 Hospital Discharge instructions Patient Education [...] urethra. Follow these instructions at home: Take rhlv-ppn-ctcaqaw and prescription medicines only as told by [...] 05/23/2006 Document Revised: 04/17/2019 Document Reviewed: 06/27/2017 [employer] Patient Education 2020 [employer]. Follow Up Care 04/21/2022 09:42:50 With:KERI NOLASCO, Topher Ordoñez, URL Address: [facility] [address] , [place] [address]- When: Unknown [facility] 03-23-2022 Note PROCEDURE: XR FOOT R [...] authenticated by: BRODY PAYAN Date: 2022-03-23 06:26 [facility] 02-01-2022 Hospital Discharge instructions Patient [...] urethra. Follow these instructions at home: Take rzxy-bli-gfxmtqo and prescription medicines only as told by [...] 05/23/2006 Document Revised: 04/17/2019 Document Reviewed: 06/27/2017 [employer] Patient Education 2020 [employer]. Follow Up Care 08/03/2021 15:20:11 With:KERI NOLASCO, Topher Ordoñez, URL Address: [address] [place] [address]- When: Unknown [facility] 10-22-2020 History of Present illness Narrative 1225 Patient arrives ambulating from [facility] for phlebotomy. No complaints at [...] ambulating without complaints [facility] + Plan note Future Appointments Appointment Date:09/28/2021 09:00:00 AM Scheduled Provider: Location:[facility] Appointment Type:URO Nurse Visit Appointment Date:02/01/2022 09:45:00 AM Scheduled Provider:Topher SAAVEDRA MD [facility] Office Visit [facility] Evaluation + Plan note Future Appointments Appointment Date:10/26/2021 09:00:00 AM Scheduled Provider: Location:[facility] Appointment Type:URO Nurse Visit Appointment Date:02/01/2022 09:45:00 AM Scheduled Provider:Topher SAAVEDRA MD Location:[facility] Appointment Type:URO Office Visit [facility] Evaluation + Plan note Future Appointments Appointment Date:11/23/2021 09:00:00 AM Scheduled Provider: Location:[facility] Appointment Type:URO Nurse Visit Appointment Date:02/01/2022 09:45:00 AM Scheduled Provider:Topher SAAVEDRA MD Location:[facility] Appointment Type:URO Office Visit [facility] Evaluation + Plan note Future Appointments Appointment Date:12/21/2021 09:00:00 AM Scheduled Provider: Location:[facility] Appointment Type:URO Nurse Visit Appointment Date:02/01/2022 09:45:00 AM Scheduled Provider:Topher SAAVEDRA MD Location:[facility] Appointment Type:URO Office Visit [facility] Evaluation + Plan note Future Appointments Appointment Date:02/01/2022 09:45:00 AM Scheduled Provider:Topher SAAVEDRA MD Location:[facility] Appointment Type:URO Office Visit Diagnostic Tests PendingTestosterone Level Total 12/21/21 [facility] Evaluation + Plan note Future Appointments Appointment Date:03/01/2022 09:30:00 AM Scheduled Provider: Location:[facility] Appointment Type:URO Nurse Visit Diagnostic Tests PendingTestosterone Level Total 04/06/22PSA Total 03/06/22 [facility] Evaluation + Plan note Future Appointments Appointment Date:03/31/2022 08:15:00 AM Scheduled Provider: Location:[facility] Appointment Type:URO Nurse Visit [facility] Evaluation + Plan note Future Appointments Appointment Date:04/21/2022 09:15:00 AM Scheduled Provider: Location:[facility] Appointment Type:URO Nurse Visit [facility] Evaluation + Plan note Future Appointments Appointment Date:05/19/2022 08:00:00 AM Scheduled Provider:Silvano NOLASCO, Mandy Husain Location:[facility] Appointment Type:URO Office Visit Diagnostic Tests PendingPSA Total 04/16/22Testosterone Level Total 04/16/22 [facility] Evaluation + Plan note Future Appointments Appointment Date:06/14/2022 09:00:00 AM Scheduled Provider: Location:[facility] Appointment Type:URO Nurse Visit Appointment Date:11/15/2022 08:45:00 AM Scheduled Provider:Topher SAAVEDRA MD Location:[facility] Appointment Type:URO Office Visit Diagnostic Tests PendingPSA Total 05/17/22Testosterone Level Total 05/17/22 [facility] Evaluation + Plan note Future Appointments Appointment Date:09/06/2022 09:00:00 AM Scheduled Provider: Location:[facility] Appointment Type:URO Nurse Visit Appointment Date:11/15/2022 08:45:00 AM Scheduled Provider:Topher SAAVEDRA MD Location:[facility] Appointment Type:URO Office Visit [facility] Evaluation + Plan note Future Appointments Appointment Date:10/05/2022 09:00:00 AM Scheduled Provider: [facility] Appoint[facility] Type:URO Nurse Visit Appointment Date:10/29/2022 08:45:00 AM Scheduled Provider:Topher SAAVEDRA MD [facility] Appointment Type:URO Office Visit Appointment Date:11/05/2022 09:45:00 AM Scheduled Provider:Topher SAAVEDRA MD [facility] Type:URO Office Visit [facility] Evaluation + Plan note Future Appointments Appointment Date:11/05/2022 09:45:00 AM Scheduled Provider:Topher SAAVEDRA MD [facility] Appointment Type:URO Office Visit [facility] Evaluation + Plan note Future Appointments Appointment Date:12/03/2022 09:15:00 AM Scheduled Provider: Location:[facility] Appointment Type:URO Nurse Visit Diagnostic Tests PendingTestosterone Level Total 11/05/22PSA Total 11/05/22 [facility] Evaluation + Plan note Future Appointments Appointment Date:01/03/2023 08:15:00 AM Scheduled Provider: Location:[facility] Appointment Type:URO Nurse Visit [facility] Evaluation + Plan note Future Appointments Appointment Date:01/31/2023 08:45:00 AM Scheduled Provider: Location:[facility] Appointment Type:URO Nurse Visit [facility] Evaluation + Plan note Future Appointments Appointment Date:03/07/2023 08:45:00 AM Scheduled Provider: Location:[facility] Appointment Type:URO Nurse Visit Appointment Date:04/04/2023 08:45:00 AM Scheduled Provider: [facility] Appointment Type:URO Nurse Visit Appointment Date:05/02/2023 08:45:00 AM Scheduled Provider: [facility] Appointment Type:URO Nurse Visit Appointment Date:05/27/2023 09:45:00 AM Scheduled Provider:Topher SAAVEDRA MD [facility] Appointment Type:URO Office Visit [facility] Evaluation + Plan note Future Appointments Appointment Date:05/02/2023 08:45:00 AM Scheduled Provider: Location:[facility] Appointment Type:URO Nurse Visit Appointment Date:06/20/2023 10:30:00 AM Scheduled Provider:Topher SAAVEDRA MD Location:[facility] Appointment Type:URO Office Visit [facility] Evaluation + Plan note Future Appointments Appointment Date:06/20/2023 10:30:00 AM Scheduled Provider:Topher SAAVEDRA MD Location:[facility] Appointment Type:URO Office Visit Diagnostic Tests PendingTestosterone Level Total 05/09/23 [facility] Evaluation + Plan note Future Appointments Appointment Date:07/18/2023 09:30:00 AM Scheduled Provider: Location:[facility] Appointment Type:URO Nurse Visit Diagnostic Tests PendingPSA Total 06/20/23Testosterone Level Total 06/20/23 [facility] Evaluation + Plan note Future Appointments Appointment Date:08/15/2023 10:00:00 AM Scheduled Provider: Location:[facility] Appointment Type:URO Nurse Visit [facility] Evaluation + Plan note Future Appointments Appointment Date:09/09/2023 08:30:00 AM Scheduled Provider: Location:[facility] Appointment Type:URO Nurse Visit [facility] Evaluation + Plan note Future Appointments Appointment Date:10/07/2023 08:30:00 AM Scheduled Provider: Location:[facility] Appointment Type:URO Nurse Visit [facility] Evaluation + Plan note Future Appointments Appointment Date:11/07/2023 09:00:00 AM Scheduled Provider: Location:[facility] Appointment Type:URO Nurse Visit [facility] Evaluation + Plan note Future Appointments Appointment Date:12/05/2023 10:45:00 AM Scheduled Provider:Topher SAAVEDRA MD Location:[facility] Appointment Type:URO Office Visit [facility] Evaluation + Plan note Future Appointments Appointment Date:01/02/2024 09:00:00 AM Scheduled Provider: Location:[facility] Appointment Type:URO Nurse Visit Diagnostic Tests PendingTestosterone Level Total 12/05/23emoglobin 12/05/23 [facility] Evaluation + Plan note Future Appointments Appointment Date:01/02/2024 09:00:00 AM Scheduled Provider: Location:[facility] Appointment Type:URO Nurse Visit [facility] Evaluation + Plan note Future Appointments Appointment Date:02/27/2024 09:00:00 AM Scheduled Provider: Location:[facility] Appointment Type:URO Nurse Visit [facility] Evaluation + Plan note Future Appointments Appointment Date:03/27/2024 09:00:00 AM Scheduled Provider: Location:[facility] Appointment Type:URO Nurse Visit Appointment Date:04/23/2024 09:30:00 AM Scheduled Provider: Location:[facility] Appointment Type:URO Nurse Visit Appointment Date:05/21/2024 10:45:00 AM Scheduled Provider:Topher SAAVEDRA MD Location:[facility] Appointment Type:URO Office Visit [facility] Evaluation + Plan note Future Appointments Appointment Date:04/23/2024 09:30:00 AM Scheduled Provider: Location:[facility] Appointment Type:URO Nurse Visit Appointment Date:05/21/2024 10:45:00 AM Scheduled Provider:Topher SAAVEDRA MD Location:[facility] Appointment Type:URO Office Visit [facility] Evaluation + Plan note Future Appointments Appointment Date:05/08/2024 09:00:00 AM Scheduled Provider: Location:[facility] Appointment Type:URO Nurse Visit Appointment Date:05/21/2024 10:45:00 AM Scheduled Provider:Topher SAAVEDRA MD Location:[facility] Appointment Type:URO Office Visit [facility] Evaluation note Diagnosis Polycythemia- Primary Polycythemia vera documented in this encounter [employer] Phone: [email or web address] note* Diagnosis Polycythemia- Primary Polycythemia vera documented in this encounter [facility] [employer] Phone: [email or web address] note* Diagnosis Dermatophytosis of nail- Primary Dystrophic nail Other specified disease of nail Diabetic polyneuropathy associated with type 2 diabetes mellitus ([facility]/HCC) Nontraumatic amputation of foot, right ([facility]/HCC) Nontraumatic amputation of foot, left ([facility]/HCC) Acquired keratoderma documented [facility]* Diagnosis Acquired keratoderma- Primary Diabetic polyneuropathy associated with type 2 diabetes mellitus (CMS/HCC) Nontraumatic amputation of foot, left ([facility]/HCC) Nontraumatic amputation of foot, right ([facility]/HCC) [facility]* Diagnosis Type 2 diabetes mellitus with diabetic polyneuropathy, without long-term current use of insulin ([facility])- Primary Acquired hallux malleus of left foot Acquired hammer toes of both feet Foot callus Corns and callosities Partial nontraumatic amputation of right foot ([facility]/HCC) Partial nontraumatic amputation of foot, left ([facility]) Venous stasis dermatitis of both lower extremities Type 2 diabetes mellitus with diabetic microalbuminuria, without long-term current use of insulin ([facility]) Microalbuminuria Proteinuria Essential hypertension ([facility]/HCC) Unspecified essential hypertension Mixed hyperlipidemia ([facility]) Mixed hyperlipidemia Adverse reaction to statin medication Former smoker Personal history of tobacco use, presenting hazards to health Morbid obesity ([facility]) Morbid obesity documented [facility]* Diagnosis Diabetic polyneuropathy associated with type 2 diabetes mellitus (CMS/HCC)- Primary Nontraumatic amputation of foot, left (CMS/HCC) Nontraumatic amputation of foot, right ([facility]/HCC) documented [facility] encounter [facility]* Diagnosis Diabetic polyneuropathy associated with type 2 diabetes mellitus ([facility]/HCC)- Primary Nontraumatic amputation of foot, left ([facility]/HCC) Nontraumatic amputation of foot, right ([facility]) documented [facility]* Diagnosis Dyspepsia Dyspepsia and other specified disorders of function of stomach documented in [facility]* Diagnosis Polycythemia- Primary Polycythemia vera [facility] Diagnosis Encounter for Medicare annual wellness exam- Primary Advance directive in chart Encounter for screening for other disorder Screening for alcohol problem Screening for alcoholism Morbid (severe) obesity due to excess calories ([facility]) BMI 39.0-39.9,adult Type 2 diabetes mellitus with diabetic polyneuropathy, without long-term current use of insulin ([facility]) Type 2 diabetes mellitus with diabetic microalbuminuria, without long-term current use of insulin ([facility]) Type 2 diabetes mellitus with foot ulcer (CODE) ([facility]) Non-pressure chronic ulcer of other part of unspecified foot with unspecified severity ([facility]) Partial nontraumatic amputation of right foot ([facility]) Partial nontraumatic amputation of foot, left ([facility]) Atherosclerosis of [place] coronary artery of [place] heart without angina pectoris ([facility]) History of myocardial infarction ([facility]) Mixed hyperlipidemia ([facility]) Mixed hyperlipidemia Adverse reaction to statin medication Primary open angle glaucoma of both eyes, unspecified glaucoma stage ([facility]) [facility] Narrative No data available for this section [facility] Hospital Discharge instructions No data available for this section [facility] progress note No data available for this section [facility] Summary Purpose Family History No Family [...] Documents on File Type Date Recorded [facility] Expl anation Advance Directives and Livin g Will Advance Directives and Livin g Will 08/31/2013 9:46 AM Power of Water Technician Power of Water Technician 08/31/2013 9:46 AM Latest Code Status on File Code Status Date Activated Date Inactivated Comments Full Code 08/06/2016 9:06 AM 08/09/2016 5:53 PM Full Code 08/04/2016 9:28 PM 08/06/2016 9:06 AM Full Code 05/15/2015 12:42 PM 05/19/2015 6:52 PM Full Code 05/12/2015 11:22 AM 05/15/2015 12:42 PM Full Code 05/13/2014 2:36 PM 05/13/2014 9:20 PM Documents on File Type Date Recorded [facility]ists Expl anation ACP-Advance Directive ACP-Power of Water Technician ACP-Advance Directive 08/31/2013 9:46 AM ACP-Power of Water Technician 08/31/2013 9:46 AM Documents on File Type Date Recorded [facility]ists Expl anation ACP-Advance Directive 08/31/2013 9:46 AM ACP-Power of Water Technician 08/31/2013 9:46 AM Latest Code Status on [...] Documents on File Type Date Recorded [facility] Specialists Expl anation Advance Directives and Living Will 11/20/2019 2018-05-09 Living Wi ll Advance Directives and Living Will 11/20/2019 2018-05-09 Power Of Water Technician Documents on File Type Date Recorded [facility] Specialists Expl anation ACP-Power of Water Technician 08/31/2013 9:46 AM ACP-Advance Directive 08/31/2013 9:46 [...] section and content) DATE CREATED AUTHOR 11/24/2017 [facility] DATE CREATED AUTHOR AUTHOR'S ORGANIZ ATION 03/15/2018 [facility] DATE CREATED AUTHOR AUTHOR'S ORGANIZ ATION 07/01/2021 [facility] DATE CREATED AUTHOR AUTHOR'S ORGANIZ ATION 09/26/2021 [facility] Specialist DATE CREATED AUTHOR AUTHOR'S ORGANIZ ATION 11/13/2022 [facility] DATE CREATED AUTHOR AUTHOR'S ORGANIZ ATION 06/03/2024 Jonathan Mchugh [facility] DATE CREATED AUTHOR AUTHOR'S ORGANIZ ATION 06/24/2024 [facility] DATE CREATED AUTHOR AUTHOR'S ORGANIZ ATION 07/07/2024 [facility] DATE CREATED AUTHOR AUTHOR'S ORGANIZ ATION 07/17/2024 [facility] DATE CREATED AUTHOR AUTHOR'S ORGANIZ ATION 07/27/2024 [facility] dical Specialists EPIC Care Team (unrecognized sect ion and content) 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 Anuja Henson DO [address] [place] [address] Referring Physician Orthopaedic Surgery 05/17/23 Brody Ibrahim DPM [address] [place], [place] [phone] Referring Physician Podiatry 05/17/23 Gun Repair Clerk Relationship Specialty Start Date End Date Jordan Duncan MD [address] [place] [address] (Fax) PCP - General Family Medicine 10/25/22 Mitch Mello MD [address] [place] [address] Referring Physician Cardiology 05/17/23 Jr. 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 Anuja Henson, DO [address] [address] Referring Physician Orthopaedic Surgery 05/17/23 Brody Ibrahim DPM [address] [place] [address] Referring Physician Podiatry 05/17/23 Gun Repair Clerk Relationship Specialty Start Date End Date Jordan Duncan MD [address] [place] [address] (Fax) PCP - General Family Medicine 10/25/22 Jordan Duncan MD [address] [place] [address] (Fax) PCP - ACO Reach 08/05/23 Mitch Mello MD [address] [place], [place] [phone] Referring Physician Cardiology 05/17/23 Jr. Anuja Henson DO [address] [address] Referring Physician Orthopaedic Surgery 05/17/23 Brody Ibrahim DPM [address] [place] [address] Referring Physician Podiatry 05/17/23 Gun Repair Clerk Relationship Specialty Start Date End Date Jordan Duncan MD [address] [place] [address] (Fax) PCP - General Family Medicine 10/25/22 Jordan Duncan MD [address] [place] [address] (Fax) PCP - ACO Reach 08/05/23 Mitch Mello MD [address] [place], [place] [phone] Referring Physician Cardiology 05/17/23 Jr. Anuja Henson DO [address] [facility] [address] [place] [address] Referring Physician Orthopaedic Surgery 05/17/23 Brody Ibrahim DPM [address] [place] [address] Referring Physician Podiatry 05/17/23 Gun Repair Clerk Relationship Specialty Start Date End Date Jordan Duncan MD [address] [place] [phone] (Fax) PCP - General Family Medicine 10/25/22 Jordan Duncan MD [address] [phone] (Fax) PCP - ACO Reach 08/05/23 Mitch Mello MD [address] [place] [phone] Referring Physician Cardiology 05/17/23 Jr. Anuja Henson DO [address] [address] Referring Physician Orthopaedic Surgery 05/17/23 Brody Ibrahim DPM [address] [place] [address] Referring Physician Podiatry 05/17/23 Gun Repair Clerk Relationship Specialty Start Date End Date Jordan Duncan MD [address] [place] [address] (Fax) PCP - General Family Medicine 10/25/22 Jordan Duncan MD [address] [place] [address] PCP - ACO Reach 08/05/23 Mitch Mello MD [address] [place] [address] Referring Physician Cardiology 05/17/23 Jr. Anuja Henson DO [address] [facility] [address] [place] [address] Referring Physician Orthopaedic Surgery 05/17/23 Brody Ibrahim DPM [address] [place] [address] Referring Physician Podiatry 05/17/23 Gun Repair Clerk Relationship Specialty Start Date End Date Jordan Duncan MD [address] [place] [address] PCP - General Family Medicine 10/25/22 Jordan Duncan MD [address] [place] [phone] PCP - ACO Reach 08/05/23 Mitch Mello MD [address] [place] [phone] Referring Physician Cardiology 05/17/23 Jr. Anuja Henson DO [address] [facility] [address] [place] [address] Referring Physician Orthopaedic Surgery 05/17/23 Brody Ibrahim DPM [address] [place], [place] [phone] Referring Physician Podiatry 05/17/23 Gun Repair Clerk Relationship Specialty Start Date End Date Jordan Duncan MD [address] [place] [address] (Fax) PCP - General Family Medicine 10/25/22 Jordan Duncan MD [address] [place] [address] (Fax) PCP - ACO Reach 08/05/23 Mitch Mello MD [address] [place] [address] Referring Physician Cardiology 05/17/23 Jr. Anuja Henson DO [address] [facility] [address] [place] [address] Referring Physician Orthopaedic Surgery 05/17/23 Brody Ibrahim DPM [facility] [place] [address] Referring Physician Podiatry 05/17/23 Gun Repair Clerk Relationship Specialty Start Date End Date Jordan Duncan MD [address] [place] [address] (Fax) PCP - General Family Medicine 10/25/22 Jordan Duncan MD [address] [place] [address] (Fax) PCP - ACO Reach 08/05/23 Mitch Mello MD [address] [place] [address] Referring Physician Cardiology 05/17/23 Jr. Anuja Henson DO [address] [place] [address] [place] [address] Referring Physician Orthopaedic Surgery 05/17/23 Brody Ibrahim DPM [address] [place] [address] Referring Physician Podiatry 05/17/23 Gun Repair Clerk Relationship Specialty Start Date End Date Jordan Duncan MD [address] [place] [address] (Fax) PCP - General Family Medicine 10/25/22 Jordan Duncan MD [address] [place] [address] (Fax) PCP - ACO Reach 08/05/23 Mitch Mello MD [address] [place] [address] Referring Physician Cardiology 05/17/23 Jr. Anuja Henson DO [address] [facility] [address] [place] [address] Referring Physician Orthopaedic Surgery 05/17/23 Brody Ibrahim DPM [address] [place] [address] Referring Physician Podiatry 05/17/23 Gun Repair Clerk Relationship Specialty Start Date End Date Jordan Duncan MD [address] [place] [address] (Fax) PCP - General Family Medicine 10/25/22 Jordan Duncan MD [address] [place] [address] (Fax) PCP - ACO Reach 08/05/23 Mitch Mello MD [address] [place] [address] Referring Physician Cardiology 05/17/23 Jr. 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 PCP: Dr. Dakota YARBROUGH 03/27/24, A1C: 6.4 (5/1), BS: 132 SS: 14. Reason Comments Diabetic shoe check Juan Miguel Jennings is a 74 y.o. male who presents diabetic shoe check. PCP: Dr. Dakota YARBROUGH 03/27/24, A1C: 6.4 (5), BS: 132 SS: 14. Reason Comments Annual Exam FOR RECORDS PERTAINING TO PATIENTS WHO ARE [...] BE BASED ON THE PRIMARY CLINICAL RECORDS. [employer] provides no warranty or guarantee of the accuracy or completeness of information in this document.
== END 2024-08-29 08:47 | disposition home or self-care (01) ==
LOC: WC 08:46
PROVIDERS: PCP Family Medicine; Visit Provider Physician Assistant
DX: L84 Corns and callosities (principal); E11.40 Type 2 diabetes mellitus with diabetic neuropathy, unspecified
CPT/HCPCS: 11056

== ENCOUNTER 2024-09-19 07:36 | Outpatient (RCR) | payer MEDICARE, SELFPAY ==
[2024-09-19 09:55] VITALS: BP 163/86; PULSE 56; TEMP 36.3; O2SAT 96
[2024-09-19] MEDS: INCLISIRAN SODIUM 284 MG/1.5 ML SYRINGE SQ (10:02)
== END 2024-09-19 13:48 | disposition home or self-care (01) ==
LOC: INF 07:36
PROVIDERS: PCP Family Medicine; Visit Provider Internal Medicine Interventional Cardiology
DX: E78.5 Hyperlipidemia, unspecified (principal); I25.10 Atherosclerotic heart disease of native coronary artery without angina pectoris; E11.621 Type 2 diabetes mellitus with foot ulcer; L97.422 Non-pressure chronic ulcer of left heel and midfoot with fat layer exposed; L84 Corns and callosities; E11.40 Type 2 diabetes mellitus with diabetic neuropathy, unspecified
CPT/HCPCS: 11043; 11056; 96372; J1306

== ENCOUNTER 2024-09-19 09:19 | Outpatient (OUT) | payer MEDICARE, SELFPAY ==
--- OUTSIDE RECORDS SUMMARY | 2024-09-19 09:37 | XMS_ITS | CCD ---
Author Organization [facility] Care Team Providers Care Aws Developer Name Role Phone PHYSICIAN, DEFAULT Unavailable Unavailable PHYSICIAN, DEFAULT Unavailable Unavailable Diego Bartlett Primary Care Provider [phone] Jordan Duncan Primary Care Provider Jordan Duncan MD Primary Care Provider [phone] JORDAN DUNCAN Primary Care Physician Jordan Duncan [...] HARGROVE Attending Unavailable ENEDINA HARGROVE Admitting Unavailable HEMEYER ., DR ALATORRE Primary Care Unavailable Jordan Duncan MD Primary Care Provider [phone] Funmilayo NOLASCO, Mitch Armendariz Unavailable Jr. Anuja Henson DO Unavailable Brody Ibrahim DPM Unavailable [phone] Jordan Duncan MD Unavailable Jordan Duncan MD Primary Care Provider Jordan Duncan MD Unavailable Jordan Duncan MD Primary Care Provider [phone] Jordan Duncan MD Unavailable [phone] Fernanda Solomon Attending Unavailable SAAVEDRA, Topher R [...] Unavailable Jordan Duncan MD Primary Care Provider [phone] WILLI SANCHEZ Referring Unavailable HEMEYER, JORDAN Brown Primary Care Unavailable HEMEYER, JORDAN Brown Primary Care Unavailable WILLI SANCHEZ Referring Unavailable HEMEYER, JORDAN Brown Primary Care Unavailable WILLI SANCHEZ Referring Unavailable ANUJA HUDDLESTON Attending Unavailable PAUL CLEMONS Attending Unavailable HEMEYER, JORDAN Brown Attending Unavailable RUSBRODY PELAYO Attending Unavailable HEMEENOC, JORDAN Brown Attending Unavailable HEMEENOC, JORDAN Brown Attending Unavailable RUS, BRODY Xiao Attending Unavailable RUS, BRODY Xiao Attending Unavailable RUS, BRODY Xiao Attending Unavailable HEMEENOC, JORDAN Brown Attending Unavailable RUS, BRODY Xiao Attending Unavailable RUS, BRODY Xiao Attending Unavailable ALEXANDRIA, BRODY Xiao Attending Unavailable Anuja Huddleston MD Unavailable [phone] Topher Saavedra MD Unavailable Feli ALEXANDERSekouel Unavailable Anuja Huddleston MD Unavailable [phone] Allergies Allergy Classification Reported Allergen(s) Allergy Type Date of Onset Reaction(s) Facility (4 sources) Clindamycin/Linc omycin Propensity to adverse reactions to drug 8 [place], [place] (3 sources) Clind[facility] glip[facility]; Translations: [GLIPIZIDE] Drug Allergy 2 Diarrhea [facility] (20 sources) metFORMIN; Translations: [METFORMIN] Drug Allergy 2 Diarrhea, Unknown [facility] (20 sources) Pravastatin; Translations: [PRAVASTATIN] Drug Allergy 2 Unknown [facility] [employer] Work Phone: (4 sources) rosuvastatin; Translations: [ROSUVASTATIN] Drug Allergy 2 [facility] [employer] Work Phone: (2 sources) Clindamycin; Translations: [CLINDAMYCIN] Drug Allergy [address] [facility] (1 source) glipiZIDE Drug Allergy [address] [facility] (1 source) metFORMIN Drug Allergy [address] [facility] (20 sources) Clindamycin Drug Allergy 2 Diarrhea [facility] (20 sources) ezetimibe; Translations: [EZETIMIBE] Drug Allergy 2 Unknown [facility] (20 sources) glipiZIDE Drug Allergy 2 Diarrhea, Unknown [facility] (20 sources) Rosuvastatin calcium Allergy to substance 1 Unknown [facility] Medications Current Medications Medication Drug Class(es) Dates Sig (Normalized) Sig (Original) amLODIPine 5 mg oral tablet (5 sources) Dihydropyridine Calcium Channel Justice Start: 06-08-2024 [...] MCG (1999 UT) tablet Take by mouth. Active Cholecalciferol [...] (20 mg) before bedtime. 180 tablet 06/18/2024 Active glipiZIDE 10 mg oral tablet (20 sources) Sulfonylurea Start: 01-01-2019 take 10 mg by mouth once daily glipiZIDE 10 mg, Oral, Daily, Refills(s) 0 Start Date: 01/01/19 Status: Ordered 24 hr isosorbide mononitrate 30 mg extended release oral tablet (5 sources) Nitrate Vasodilator Start: 06-08-2024 End: 06-08-2025 [...] MG 24 hr tablet Indications: Atherosclerosis of [place] coronary artery of [place] heart without angina pectoris (CMS/HCC) Take 1.5 tablets (150 mg) by mouth in the morning. Do not crush or chew.. 135 tablet 1 04/20/2023 10/17/2023 Active take 1 tablet by piper th once daily metoprolol succinate (TOPROL XL) 50 MG extended release tablet Take 1 tablet by mouth nightly 100mg in the am, 50mg in the pm Active take 2 tablets by mo uth [...] polyneuropathy, without long-term current use of insulin (CMS/[facility]) Take 1 tablet (30 mg) by mouth [...] BID, # 180 cap(s), Refills(s) 3, Pharmacy: [facility]/pharmacy #[id number], 198, cm, 12/05/23 10:49:00 EDT, Height/Length Dosing, 150.3, kg, 12/05/23 10:49:00 EDT, Weight Dosing Start Date: 01/11/24 Status: Ordered Start: 06-18-2022 take [address] [facility] once daily tamsulosin 0.4 mg Cap 0.4 mg = 1 cap(s), Oral, Daily, # 90 cap(s), Refills(s) 3, Pharmacy: [facility]/pharmacy #[id number], 198, cm, 11/05/22 10:14:00 EDT, Height/Length Dosing, 150, kg, 11/05/22 10:14:00 EDT, Weight Dosing Start Date: 05/26/23 Status: Ordered take 1 capsule by [facility] every twenty-four hours in the morning [...] q4wk, # 10 mL, Refills(s) 1, [id number], cm, 12/05/23 10:49:00 EDT, Height/Length Dosing, 150.3, kg, 12/05/23 10:49:00 EDT, Weight Dosing Start Date: 03/27/24 Status: Ordered Start: 01-03-2024 testosterone c ypionate 200 mg/mL IM Richelle 400 mg, IntraMuscular, q4wk, # 10 mL, Refills(s) 1, Pharmacy: [facility]/pharmacy #[id number], 198, cm, 12/05/23 10:49:00 EDT, Height/Length Dosing, 150.3, kg, 12/05/23 10:49:00 EDT, Weight Dosing Start Date: 01/03/24 Status: Ordered Start: 06-20-2023 testosterone c ypionate 200 mg/mL IM Richelle 450 mg, IntraMuscular, q4wk, # 10 mL, Refills(s) 1, Pharmacy: [facility]/pharmacy #[id number], 198, cm, 06/20/23 11:05:00 EST, Height/Length Dosing, 149, kg, 06/20/23 11:05:00 EST, Weight Dosing Start Date: 06/20/23 Status: Ordered Start: 05-09-2023 testosterone c ypionate 200 mg/mL IM Richelle 400 mg, IntraMuscular, q4wk, # 10 mL, Refills(s) 1, Pharmacy: [facility]/pharmacy #[id number], 198, cm, 11/05/22 10:14:00 EDT, Height/Length Dosing, 150, kg, 11/05/22 10:14:00 EDT, Weight Dosing Start Date: 05/09/23 Status: Ordered Start: 02-08-2023 testosterone c ypionate 200 mg/mL IM Richelle 400 mg, IntraMuscular, q4wk, # 10 mL, Refills(s) 2, Pharmacy: [facility]/pharmacy #[id number], 198, cm, 11/05/22 10:14:00 EDT, Height/Length Dosing, 150, kg, 11/05/22 10:14:00 EDT, Weight Dosing Start Date: 02/08/23 Status: Ordered Start: 08-27-2022 testosterone c ypionate 200 mg/mL IM Richelle 400 mg, IntraMuscular, q4wk, # 10 mL, Refills(s) 2, [id number], cm, 06/18/22 9:10:00 EST, Height/Length Dosing, 164, kg, 06/18/22 9:10:00 EST, Weight Dosing Start Date: 08/27/22 Status: Ordered testosterone cypionate 200 mg/mL intramuscular solution (17 sources) Start: 02-01-2022 testosterone c ypionate 200 mg/mL intramuscular solution 400 mg = 2 mL, IntraMuscular, q4wk, 400mg once a month, # 10 mL, Refills(s) 3, Pharmacy: [facility]/pharmacy #[id number], 198, cm, 02/01/22 9:53:00 EDT, Height/Length Dosing, 166, kg, 02/01/22 9:53:00 EDT, Weight Dosing Start Date: 02/01/22 Status: Ordered Start: 11-23-2021 testosterone c ypionate 200 mg/mL intramuscular solution 350 mg, IntraMuscular, q4wk, # 10 mL, Refills(s) 1, Pharmacy: [facility]/pharmacy #[id number], 198, cm, 08/03/21 14:37:00 EST, Height/Length Dosing, 166, kg, 08/03/21 14:37:00 EST, Weight Dosing Start Date: 11/23/21 Status: Ordered Start: 08-03-2021 testosterone c ypionate 200 mg/mL intramuscular solution 350 mg, IntraMuscular, q4wk, # 10 mL, Refills(s) 1, Pharmacy: [facility]/pharmacy #[id number], 198, cm, 08/03/21 14:37:00 [...] Date Documented Da te Episodic/Chronic Abdominal pain (2 sources) Indigestion; Translations: [Epigastric pain] 06-18-2024 Episodic Acquired [...] Coronary arteriosclerosis; Translations: [Atherosclerotic heart disease of [place] coronary artery without angina pectoris] Onset: 04-08-2017 [...] 01-13-2023 01-11-2023 Chronic 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 (1 source) long-term (current) use of anticoagulants; Translations: [RESIDENTIAL CURRNT USE ANTICOAGULANTS] Onset: 10-12-2022 Episodic 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 (1 source) long-term (current) use of aspirin; Translations: [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] Onset: 10-12-2022 Episodic 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 (1 source) 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 of oral hypoglycemic drugs; Translations: [RESIDENTIAL USE ORAL HYPOGLYCEMIC DX] Onset: 10-12-2022 Episodic 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 (1 source) Other termite treater helper (current) drug therapy; Translations: [OTH RESIDENTIAL CURRENT DRUG THERAPY] Onset: 09-20-2022 Episodic Other [...] Chronic Other diseases of bladder and urethra (6 sources) Overactive bladder; Translations: [Overactive bladder] Onset: 07-16-2024 05-21-2024 Chronic Other diseases of veins and [...] excess calories] Onset: 08-05-2016 08-05-2016 Chronic Other nutritional; endocrine; and metabolic disorders (2 sources) Obesity caused by energy imbalance; Translations: [Morbid (severe) obesity due to excess calories] 07-23-2024 Chronic Other nutritional; endocrine; and metabolic disorders (2 sources) Body mass index 30+ - obesity; Translations: [Body mass index (BMI) 39.0-39.9, adult] 07-25-2024 Chronic Other skin disorders (1 source) Dystrophia [...] [Other specified health status] Onset: 07-16-2024 Episodic Residual codes; unclassified (2 sources) Active [...] 01-14-2008-05-2016 Chronic Joint disorders and dislocations; trauma-related (20 sources) Derangement of left knee; Translations: [Unspecified internal derangement of left knee] Onset: 01-24-20 Resolved : 01-14-2001-13-2023 Chronic Mood disorders (20 sources) Mood disorders Onset: 05-17-20 Resolved : 07-25-1905-17-2023 Other connective tissue disease (20 sources) History [...] Test Name Value Interpretation Reference Range Facility [facility] 09-13-2024 Albumin [Mass/Vol] 4.3 g/dL Normal 3.6-5.1 [facility] Comment on above: Performed By: #### 4 70, 6021 #### [facility] [address], [address] [place] [address] Medical Technologist Microbiology: Toan Lara MD #### [id number] #### [facility] [address] [place] [phone] Medical Technologist Microbiology: Parvin Gray Albumin/Globulin [Mass ratio] 1.5 {ratio} Normal 1.0-2.5 [facility] Comment on above: Performed By: #### 4 12, 5310 #### [facility] [address], [address] [place] [phone] Medical Technologist Microbiology: Toan Lara MD #### [id number] #### [facility] [address] Medical Technologist Microbiology: Parvin Gray ALP [Catalytic activity/Vol] 64 U/L Normal 35-144 [facility] Comment on above: Performed By: #### 4 , 7599 #### [facility] [address], [address] [place] [address] Medical Technologist Microbiology: Toan Lara MD #### [id number] #### [facility] [address] [place], [place] [id number] Medical Technologist Microbiology: Parvin Gray ALT [Catalytic activity/Vol] 32 U/L Normal 9-46 [facility] Comment on above: Performed By: #### 4 , 7599 #### [facility] [address], [address] [place] [address] Medical Technologist Microbiology: Toan Lara MD #### [id number] #### [facility]-[address] Medical Technologist Microbiology: Parvin Gray AST [Catalytic activity/Vol] 23 U/L Normal 10-35 [facility] Comment on above: Performed By: #### 4 , 7599 #### [facility] [address], [address] [place] [address] Medical Technologist Microbiology: Toan Lara MD #### [id number] #### [facility]-[address] Medical Technologist Microbiology: Parvin Gray Bilirubin [Mass/Vol] 0.7 mg/dL Normal 0.2-1.2 [facility] Comment on above: Performed By: #### 4 , 7599 #### [facility] [address], [address] [place] [address] Medical Technologist Microbiology: Toan Lara MD #### [id number] #### [facility] [address] [place], [place] [id number] Medical Technologist Microbiology: Parvin Gray BUN/CREATININE RATIO SEE NOTE: Normal 6-22 [facility] Comment on above: Result Comment: Not Reported: BUN and Creatinine are within reference range. Performed By: #### 4 , 7599 #### [facility] of [address], [address] [place] [address] Medical Technologist Microbiology: Toan Lara MD #### [id number] #### [facility] [address] [place] [address] Medical Technologist Microbiology: Parvin Ordoñez Flati Calcium [Mass/Vol] 9.3 mg/dL Normal 8.6-10.3 [facility] Comment on above: Performed By: #### 4 , 7599 #### [facility] [address], [address] [place] [address] Medical Technologist Microbiology: Toan Lara MD #### [id number] #### [facility] [address] Medical Technologist Microbiology: Parvin Ordoñez Flati Chloride [Moles/Vol] 105 mmol/L Normal 98-110 [facility] Comment on above: Performed By: #### 4 , 7599 #### [facility] [address], [address] [place] [address] Medical Technologist Microbiology: Toan Lara MD #### [id number] #### [facility] [address] Medical Technologist Microbiology: Parvin Ordoñez Flati CO2 [Moles/Vol] 26 mmol/L Normal 20-32 [facility] Comment on above: Performed By: #### 4 , 7599 #### [facility] [address], [address] [place] [address] Medical Technologist Microbiology: Toan Lara MD #### [id number] #### [facility] [address] [place] [address] Medical Technologist Microbiology: Parvin Ordoñez Flati Creatinine [Mass/Vol] 0.84 mg/dL Normal 0.70-1.28 [facility] Comment on above: Performed By: #### 4 , 7599 #### [facility] [address], [address] [place] [address] Medical Technologist Microbiology: Toan Lara MD #### [id number] #### [facility] [address] [place] [phone] Medical Technologist Microbiology: Parvin Gray GFR/1.73 sq M.predicted among non-blacks MDRD (S/P/Bld) [Vol rate/Area] 93 mL/min/{1.73_m2} Normal > OR = 60 [facility] Comment on above: Performed By: #### 4 , 0 #### [facility] [address], [address] [place] [address] Medical Technologist Microbiology: Toan Lara MD #### [id number] #### [facility] [address] [place] [phone] Medical Technologist Microbiology: Parvin Gray Globulin (S) [Mass/Vol] 2.8 g/dL Normal 1.9-3.7 [facility] Comment on above: Performed By: #### 4 , 7599 #### [facility] [address], [address] [place] [address] Medical Technologist Microbiology: Toan Lara MD #### [id number] #### [facility] [address] [place] [phone] Medical Technologist Microbiology: Parvin Gray Glucose [Mass/Vol] 129 mg/dL High 65-99 [facility] Comment on above: Result Comment: Fasting reference interval For someone without known diabetes, a glucose value >125 mg/dL indicates that they may have diabetes and this should be confirmed with a follow-up test. Performed By: #### 4 , 7599 #### [facility] [address], [address] [place] [address] Medical Technologist Microbiology: Toan Lara MD #### [id number] #### [facility] [address] [place] [phone] Medical Technologist Microbiology: Parvin Gray Potassium [Moles/Vol] 4.7 mmol/L Normal 3.5-5.3 [facility] Comment on above: Performed By: #### 4 , 7599 #### [facility] [address], [address] [place] [address] Medical Technologist Microbiology: Toan Lara MD #### [id number] #### [facility] [address] [place] [address] Medical Technologist Microbiology: Parvin Gray Protein [Mass/Vol] 7.1 g/dL Normal 6.1-8.1 [facility] Comment on above: Performed By: #### 4 96, 7600 #### [facility] [address], [address] [place] [address] Medical Technologist Microbiology: Toan Lara MD #### [id number] #### [facility] [address] Medical Technologist Microbiology: Parvin Gray Sodium [Moles/Vol] 140 mmol/L Normal 135-146 [facility] Comment on above: Performed By: #### 4 96, 7600 #### [facility] [address], [address] [place] [address] Medical Technologist Microbiology: Toan Lara MD #### [id number] #### [facility]-[address] Medical Technologist Microbiology: Parvin Gray Urea nitrogen [Mass/Vol] 23 mg/dL Normal 7-25 [facility] Comment on above: Performed By: #### 4 96, 7600 #### [facility] [address], [address] [place] [address] Medical Technologist Microbiology: Toan Lara MD #### [id number] #### [facility] [address] [place], [place] [id number] Medical Technologist Microbiology: Parvin Gray HEMOGLOBIN A1con 09-13-2024 HEMOGLOBIN A1c 6.3 % of total Hgb High <5.7 [facility] Comment on above: Result Comment: For someone without known diabetes, a hemoglobin A1c value between 5.7% and 6.4% is consistent with prediabetes and should be confirmed with a follow-up test. For someone with known diabetes, a value <7% indicates that their diabetes is well controlled. A1c targets should be individualized based on duration of diabetes, age, comorbid conditions, and other considerations. This assay result is consistent with an increased risk of diabetes. Currently, no consensus exists regarding use of hemoglobin A1c for diagnosis of diabetes for children. Performed By: #### 4 , 7600 #### [facility] [address], [address] [place] [address] Medical Technologist Microbiology: Toan Lara MD #### [id number] #### [facility] [address] [place] [phone] Medical Technologist Microbiology: Parvin Gray LIPID PANEL, [facility] 09-04 Cholesterol [Mass/Vol] 242 mg/dL High <200 [facility] Comment on above: Order Comment: FASTI NG:YES FASTING: YES Performed By: #### 4 96, 0 #### [facility] [address], [address] [place] [address] Medical Technologist Microbiology: Toan Lara MD #### [id number] #### [facility] [address] [place], [place] [phone] Medical Technologist Microbiology: Parvin Gray Cholesterol in HDL [Mass/Vol] 40 mg/dL Normal > OR = 40 [facility] Comment on above: Order Comment: FASTI NG:YES FASTING: YES Performed By: #### 4 96, 0 #### [facility] [address], [address] [place] [address] Medical Technologist Microbiology: Toan Lara MD #### [id number] #### [facility] [address] [place], [place] [phone] Medical Technologist Microbiology: Parvin Felixi Cholesterol in LDL [Mass/Vol] 142 mg/dL High [facility] Comment on above: Order Comment: FASTI NG:YES FASTING: YES Result Comment: Refe rence range: <100 Desirable range <100 mg/dL for primary prevention; <70 mg/dL for patients with CHD or diabetic patients with > or = 2 CHD risk factors. LDL-C is now calculated using the Marko calculation, which is a validated novel method providing better accuracy than the Friedewald equation in the estimation of LDL-C. Deion TORIBIO et al. MAHENDRA. 2013;310(19): 2907-7020 (http://education.VirnetX.McAfee/faq/MLN412) Performed By: #### 4 96, 7600 #### [facility] [address], [address] [place] [address] Medical Technologist Microbiology: Toan Lara MD #### [id number] #### [facility] [address] [place] [address] Medical Technologist Microbiology: Parvin Gray Cholesterol.total/C holesterol in HDL [Mass ratio] 6.1 {ratio} High <5.0 [facility] Comment on above: Order Comment: FASTI NG:YES FASTING: YES Performed By: #### 4 , 0 #### [facility] [address], [address] [place] [address] Medical Technologist Microbiology: Toan Lara MD #### [id number] #### [facility] [address] Medical Technologist Microbiology: Parvin Gray NON HDL CHOLESTEROL 202 mg/dL (calc) High <130 [facility] Comment on above: Order Comment: FASTI NG:YES FASTING: YES Result Comment: For patients with diabetes plus 1 major ASCVD risk factor, treating to a non-HDL-C goal of <100 mg/dL (LDL-C of <70 mg/dL) is considered a therapeutic option. Performed By: #### 4 , 0 #### [facility] [address], [address] [place] [address] Medical Technologist Microbiology: Toan Lara MD #### [id number] #### [facility] Medical Technologist Microbiology: Parvin Gray Triglyceride [Mass/Vol] 389 mg/dL High <150 [facility] Comment on above: Order Comment: FASTI NG:YES FASTING: YES Result Comment: If a non-fasting specimen was collected, consider repeat triglyceride testing on a fasting specimen if clinically indicated. Aaliyah et al. J. of Clin. Lipidol. 2015;9:129-169. Performed By: #### 4 66, 7389 #### [facility] [address], [address] [place] [address] Medical Technologist Microbiology: Toan Lara MD #### [id number] #### [facility] [address] [place] [address] Medical Technologist Microbiology: Parvin Gray Office Visiton 07-16-2024 Follow-up visit [id number] Juan Miguel Jennings 1950 M Date Provider Department Center 07/16/2024 ANUJA ARMSTRONG [facility] Family History Problem Relation Age of Onset Heart disease Mother Heart disease Father Family Status - Relation Status Age at Mother Father Level of Service:55925 [place] OFFICE/OUTPATIENT ESTABLISHED MOD MDM 30 MIN Normal [facility] 36on 07-09-2024 36 What is his blood pressure running? We can have him try holding amlodipine to see if this will help. We can see how he's feeling at his follow-up appt next week. Normal [facility] CBC W/AUTO DIFFon 06-21-2024 ABS IMMATURE GRAN 0.04 K/uL Normal 0.00-0.06 [facility] Comment on above: Result Comment: UNLE SS OTHERWISE INDICATED, ALL TESTING PERFORMED AT: [facility] [address] [place] [id number] AIRCRAFT ARMAMENT MECHANIC: JONI NI M.D. CLIA NUMBER [id number] CAP ACCREDITATION AUID [id number] ABS NEUTROPHILS 5.59 K/uL Normal 1.9-8.0 Pathology [...] Regarding stress vicenta t result from 05/17/2024: Paul Clemons, AUGUSTO Da Silva MA Please let him know I reviewed [...] and informed him of above message from [facility]. He agrees to start isosorbide and amlodipine. Sent to [facility] per his request. He will see Dr. Huddleston in clinic on 07/16/2024 in [place]. Do you need me to send something to [facility] or did you already? Normal [facility] Documentationon 06-08-2024 Documentation [id number] Juan Miguel Jennings 1950 M Date Provider Department Center 06/08/2024 23031[facility] Family History Problem Relation Age of Onset Heart disease Mother Heart disease Father Family Status - Relation Status Age at Mother Father Reason for Visit and Comments: PharmD Cardiology Consult [Other] Normal [facility] Orders Onlyon 06-02-2024 Orders Only [id number] Juan Miguel Jennings 1950 M Date Provider Department Center 06/02/2024 PAUL JAIMES [facility] Family History Problem Relation Age of Onset Heart disease Mother Heart disease Father Family Status - Relation Status Age at Mother Father Normal [facility] Reminderson 06-01-2024 Reminders Reminders From: Bertha [...] ) Other: PROVIDER RELATED REMINDER:_ ( ) Special Delivery Worker ( ) Call Pharmacy ( ) Call Lab ( ) Other: Special Instructions:_ Comments:_ Results in chart for review Normal [facility] ALL CBC WITH AUTO DIFFon BASOPHILS ABSOLUTE AUTO 0 [facility] Basophils/100 WBC (Bld) 0.4 % 0.2 - 2.0 % [facility] Eosinophils/100 WBC (Bld) 4.2 % 0.9 - 7.0 % [facility] Eryth[facility] distribution width (RBC) [Ratio] 13.8 % 11.0 - 15.0 % [facility] Hematocrit (Bld) [Volume fraction] 53 % 42.0 - 54.0 % [facility] Healthcar e Hemoglobin (Bld) [Mass/Vol] 17.9 g/dL 14.0 - 18.0 g/dL [facility] IMMATURE GRANULOCYTES ABS AUTO 0.01 [facility] Immature granulocytes/100 WBC (Bld) 0.1 % 0.0 - 0.5 % [facility] Interpretation and review of laboratory results [facility] LYMPHOCYTES ABSOLUTE AUTO 1.1 Low [facility] Lymphocytes/100 WBC (Bld) 15 % Low 20.5 - 60.0 % [facility] MCH (RBC) [Entitic mass] 32.9 pg 25.9 - 34.0 pg [facility] MCHC (RBC) [Mass/Vol] 33.8 g/dL 29.9 - 35.2 g/dL [facility] MCV (RBC) [Entitic vol] 97.4 fL High 80.0 - 94.0 fL [facility] MONOCYTES ABSOLUTE AUTO 0.9 High [facility] Monocytes/100 WBC (Bld) 12.2 % High 1.7 - 12.0 % [facility] NEUTROPHILS ABSOLUTE AUTO 4.8 [facility] Neutrophils/100 WBC (Bld) 68.1 % 43.0 - 75.0 % [facility] Platelet mean volume (Bld) [Entitic vol] 12.5 fL 9.5 - 13.5 fL [facility] TBH EO # 0.3 [facility] Healthcar [facility] TBH PLT 144 Low [facility] Health[facility] TBH RBC 5.44 [facility] WBC 7.1 [facility] Health[facility] e Ambulatory Visit Summary07-22-2023 Ambulatory Visit Summary Ambulatory Visit Summary JUAN MIGUEL JENNINGS :1950 Visit Date:05/21/2024 Ambulatory Visit Instructions Your Diagnosis Hypogonadism Elevated PSA BPH with urinary obstruction OAB (overactive bladder) Your Care Team Attending Physician - KERI ONLASCO, Topher Ordoñez Primary Care Physician - DAKOTA [...] Where: [facility] [address], [place] [address]- Medications What How Much When Instructions Unchanged [...] PSA History of colon cancer 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 Ea (more content not included)... Normal [facility] Urology Office/Clinic Noteon 12-16-2024 Urology Office/Clinic Note Urology Office/Clinic Note Chief [...] Has not been able to donate blood, [place] will not let him. Pt will talk to his oncologist in [place] to see if there is another way he can donate blood. Shares he got CBC drawn on 05/08 at [facility], no results on [facility], called lab and they did not [...] onc to facilitate blood donation/get permission for [place]. 2. 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 Normal [facility] Comment on above: Result Comment: Elec [...] [Mass/Vol] 189 mg/dL NINF - 200 mg/dL [facility] Cholesterol in HDL [Mass/Vol] 42 mg/dL 40 - 60 mg/dL [facility] Comment on above: > or =60 mg/dl - LOW CARDIOVASCULAR RISK <40 mg/dl - HIGH CARDIOVASCULAR RISK LDL CHOLESTEROL CALCULATED 124.2 mg/dL [facility] Comment on above: <100 mg/dl OPTIMAL 100-129 mg/dl NEAR OR ABOVE OPTIMAL 130-159 mg/dl BORDERLINE HIGH 160-189 mg/dl HIGH >190 mg/dl VERY HIGH Magnesium [Mass/Vol] 22.8 mg/dL [facility] Healthcare Triglyceride [Mass/Vol] 114 mg/dL NINF - 150 mg/dL [facility] Healthcar e Office Visiton 05-02-2024 Follow-up visit [id number] Juan Miguel Jennings 1950 M Date Provider Department Center 05/02/2024 [facility]IMES [facility] Family History Problem Relation Age of Onset Heart disease Mother Heart disease Father Family Status - Relation Status Age at Mother Father Level of Service:38606 [place] OFFICE/OUTPATIENT ESTABLISHED MOD MDM 30 MIN Reason for Visit and Comments: Coronary Artery Disease [187] Hypertension [076308] Normal [facility] Ambulatory Visit Summaryon 1 06-23-2023 Ambulatory Visit [...] EST With: Where: [facility] [address] [address]- Tuesday 10:45 AM EST With: Topher SAAVEDRA MD Where: [facility] [address] [address]- Medications What How Much When Instructions Unchanged [...] PSA History of colon cancer Hx of usp use of blood thinners Hyperlipidemia Hypertension Hypogonadism [...] for choosing us for your care. Normal [facility] Ambulatory Visit Summaryon 1 Ambulatory Visit [...] EST With: Where: [facility] [address] [id number]- Tuesday 10:45 AM EST With: Topher SAAVEDRA MD Where: [facility] [address] [place], [place] [id number]- Medications What How Much When Instructions Unchanged [...] PSA History of colon cancer Hx of usp use of blood thinners Hyperlipidemia Hypertension Hypogonadism [...] for choosing us for your care. Normal [facility] CBC W/AUTO DIFFon 02-22-2024 ABS IMMATURE [...] on above: Result Comment: [facility] [address] [place] [address] CLIA No. [id number] CAP Accreditation No. [id number] Senior Android Software Engineer: Shaunna Dee M.D. Platelets (Bld) [#/Vol] 128 [...] 01-03-2024 Ambulatory Visit Summary Ambulatory Visit Summary MILAGROSSAURABHJUANGABRIELAJUAN MIGUEL J :1950 Visit Date:01/03/2024 Ambulatory Visit Instructions Your [...] 9:30 AM EDT Where: [facility] [address] [place] [id number]- Medications What How Much When Instructions Unchanged [...] PSA History of colon cancer Hx of usp use of blood thinners Hyperlipidemia Hypertension Hypogonadism [...] choosing us for your care. Armando Castillo [facility] Urology Office/Clinic Noteon 12-05-2023 Urology Office/Clinic [...] URL [facility] [address], [place] [phone] Additional Instructions: 6 mos w/ T level [...] PSA History of colon cancer Hx of usp use of blood thinners Hyperlipidemia Hypertension Hypogonadism [...] Oral, TID, (more content not included)... Normal [facility] Comment on above: Result Comment: Elec tronically Signed By: Topher SAAVEDRA MD\.br\Date and Time Signed: 12/05/23 11:42 EDT\.br\Electronically Co-Signed By: Erica Marin\.br\Date and Time Co-Signed: 12/05/23 11:40 EDT [facility] 11-22-2023 Lab Reports [id number] .00TIFF Normal [facility] 11-09-2023 Lab Reports [id number] .00TIFF Normal [facility] CBC W/AUTO DIFFon 10-25-2023 ABS IMMATURE [...] above: Result Comment: [facility] [address] [place] [address] CLIA No. [id number] CAP Accreditation No. [id number] Senior Android Software Engineer: Shaunna Dee M.D. Platelets (Bld) [#/Vol] 141 [...] Protein [Mass/Vol] 7.2 g/dL Normal 6.1-8.3 [facility] Sodium [Moles/Vol] 139 mmol/L Normal 133-146 [facility] Urea nitrogen [Mass/Vol] 13 mg/dL Normal 8-23 [facility] Ambulatory Visit Summaryon 0 10-07-2023 Ambulatory Visit Summary GABRIELA JENNINGSDAQUAN Brown :1950 Visit Date:10/07/2023 Ambulatory Visit Instructions Your [...] 9:00 AM EDT Where: [facility] Ambulatory Visit Summaryon 0 09-09-2023 Ambulatory Visit Summary JANEGABRIELAJUAN MIGUEL J :1950 Visit Date:09/09/2023 Ambulatory Visit Instructions Your Diagnosis Hypogonadism Your Care Team Attending Physician - KERI NOLASCO, Topher Ordoñez Primary Care Physician - DAKOTA NOLASCO, JORDAN Brown This Is Your Medications List [facility] Prescription (METOPROLOL TARTRATE 100 MG TAB) aspirin [...] 8:30 AM EDT Where: [facility] Lab Report[facility] 07-15-2023 Lab Reports [id number] .00TIFF [facility] Report[facility] 06-28-2023 Lab Reports [id number] .00TIFF [facility] Ambulatory Visit Summaryon 0 06-20-2023 Ambulatory Visit Summary JUAN MIGUEL JENNINGS :1950 Visit Date:06/20/2023 Ambulatory Visit Instructions Your Diagnosis Hypogonadism male Elevated PSA BPH with urinary obstruction Phimosis Urinary urgency Tests Performed Urnls Dip Stick Auto w/o Microscopy POC [id number] Your Care Team Attending Physician - KERI [...] 9:30 AM EST Where: [facility] Patient Educationon 06-20-19 24 [...] Follow these instructions at home: ? Take uceu-pgh-[id number] and prescription medicines only as told by [...] 01/22/2021 Document (more content not included)... Normal [facility] Urology Office/Clinic Noteon 06-20-2023 Urology Office/Clinic [...] [facility] [address], [place] [phone] Additional Instructions: 6 mos w/ PSA and [...] PSA History of colon cancer Hx of usp use of blood thinners Hyperlipidemia Hypertension Hypogonadism [...] 1 tab(s (more content not included)... Normal [facility] Comment on above: Result Comment: Elec tronically Signed By: Topher SAAVEDRA MD\.br\Date and Time Signed: 06/20/23 11:28 EST\.br\Electronically Co-Signed By: Erica Marin\.br\Date and Time Co-Signed: 06/20/23 11:26 EST POINT OF CARE GLUCOSEon 09-05 Glucose [Mass/Vol] 112 mg/dL Critically high 74-106 T [facility] Comment on above: Performed By: #### P OCGLUC #### [facility] [address] [address] [address] Patria Sanders CBC AUTO DIFFon 09-15-2022 BASO # 0.0 103/ul Normal 0.0-0.1 [facility] Comment on above: Performed By: #### C BC #### [facility] [address] [address] [address] Patria Sanders Basophils/100 WBC (Bld) 0.5 % Normal 0.2-2.0 [facility] Comment on above: Performed By: #### C BC #### [facility] [address] [place] [address] Dr. Patria Sanders EO # 0.3 103/ul Normal 0.0-0.7 [facility] Comment on above: Performed By: #### C BC #### [facility] [address] [place] [address] Dr. Patria Sanders Eosinophils/100 WBC (Bld) 3.2 % Normal 0.9-7.0 [facility] Comment on above: Performed By: #### C BC #### [facility] [address] [place] [address] Dr. Patria Sanders Erythrocyte distribution width (RBC) [Ratio] 14.5 % Normal 11.0-15.0 [facility] Comment on above: Performed By: #### C BC #### [facility] [address] [place] [address] Dr. Partia Sanders Hematocrit (Bld) [Volume fraction] 49.0 % Normal 42.0-54.0 [facility] Comment on above: Performed By: #### C BC #### [facility] [address] [place] [address] Dr. Patria Sanders Hemoglobin (Bld) [Mass/Vol] 16.7 g/dL Normal 14.0-18.0 [facility] Comment on above: Performed By: #### C BC #### [facility] [address] [place] [address] Dr. Patria Sanders IG # 0.03 10e3/ul Normal 0.00-0.03 [facility] Comment on above: Performed By: #### C BC #### [facility] [address] [place] [address] Dr. Patria Sanders IG % 0.4 % Normal 0.0-0.[address] [facility] Comment on above: Performed By: #### C BC #### [facility] [address] [place] [address] Dr. Patria Sanders LYMPH # 1.1 103/ul Critically low 1.2-3.8 [facility] Comment on above: Performed By: #### C BC #### [facility] [address] [address] [address] Patria Sanders Lymphocytes/100 WBC (Bld) 14.5 % Critically low 20.5-60.0 [facility] Comment on above: Performed By: #### C BC #### [facility] [address] [address] [address] Patria Sanders MANUAL DIFF REQ NO Normal [facility] Comment on above: Performed By: #### C BC #### [facility] [address] [place] [address] Dr. Patria Sanders MCH (RBC) [Entitic mass] 32.6 pg Normal 25.9-34.[address] [facility] Comment on above: Performed By: #### C BC #### [facility] [address] [place] [address] Dr. Patria Sanders MCHC (RBC) [Mass/Vol] 34.1 g/dL Normal 29.9-35.[address] [facility] Comment on above: Performed By: #### C BC #### [facility] [address] [place] [address] Dr. Patria Sanders MCV (RBC) [Entitic vol] 95.5 fL Critically high 80.0-94.0 [facility] Comment on above: Performed By: #### C BC #### [facility] [address] [place] [address] Dr. Patria Sanders MONO # 0.8 103/ul Normal 0.3-0.[address] [facility] Comment on above: Performed By: #### C BC #### [facility] [address] [place] [address] Dr. Patria Sanders Monocytes/100 WBC (Bld) 9.6 % Normal 1.7-12.[address] [facility] Comment on above: Performed By: #### C BC #### [facility] [address] [place] [address] Dr. Patria Sanders NEUT # 5.6 103/ul Normal 1.4-6.[address] [facility] Comment on above: Performed By: #### C BC #### [facility] [address] [place] [address] Dr. Patria Sanders Neutrophils/100 WBC (Bld) 71.8 % Normal 43.0-75.0 [facility] Comment on above: Performed By: #### C BC #### [facility] [address] [place] [address] Dr. Patria Sanders Platelet mean volume (Bld) [Entitic vol] 11.6 fL Normal 9.5-13.[address] [facility] Comment on above: Performed By: #### C BC #### [facility] [address] [place] [address] Dr. Patria Sanders PLT 154 103/ul Normal 150-450 [facility] Comment on above: Performed By: #### C BC #### [facility] [address] [place] [address] Dr. Patria Sanders RBC 5.13 106/ul Normal 4.70-6.10 [facility] Comment on above: Performed By: #### C BC #### [facility] [address] [place] [address] Dr. Patria Sanders WBC 7.8 103/ul Normal 4.0-11.0 [facility] Comment on above: Performed By: #### C BC #### [facility] [address] [place] [address] Dr. Patria Sanders PROF CHEM 8 (BAS METB)on Anion gap [Moles/Vol] 11.4 mmol/L Normal [facility] Comment on above: Performed By: #### B MP #### [facility] [address] [place] [address] Dr. Patria Sanders Calcium [Mass/Vol] 9.1 mg/dL Normal 8.5-10.1 [facility] Comment on above: Performed By: #### B MP #### [facility] [address] [place] [address] Dr. Patria Sanders Chloride [Moles/Vol] 104 mmol/L Normal 98-[address] [facility] Comment on above: Performed By: #### B MP #### [facility] [address] [place] [address] Dr. Patria Sanders CO2 [Moles/Vol] 28.7 mmol/L Normal 21.0-32.0 [facility] Comment on above: Performed By: #### B MP #### [facility] [address] [address] [address] Patria Sanders Creatinine [Mass/Vol] 0.80 mg/dL Normal 0.70-1.[address] [facility] Comment on above: Performed By: #### B MP #### [facility] [address] [address] [address] Patria Sanders EGFR-AF INDIAN >60 Normal >=60 [facility] Comment on above: Performed By: #### B MP #### [facility] [address] [address] [address] Patria Sanders EGFR-NON AF INDIAN >60 Normal >=[address] [facility] Comment on above: Performed By: #### B MP #### [facility] [address] [address] [address] Patria Sanders Glucose [Mass/Vol] 101 mg/dL Normal 74-106 [facility] Comment on above: Performed By: #### B MP #### [facility] [address] [address] [address] Patria Sanders Potassium [Moles/Vol] 4.1 mmol/L Normal 3.5-5.[address] [facility] Comment on above: Performed By: #### B MP #### [facility] [address] [address] [address] Patria Sanders Sodium [Moles/Vol] 140 mmol/L Normal 136-145 [facility] Comment on above: Performed By: #### B MP #### [facility] [address] [address] [address] Patria Sanders Urea nitrogen [Mass/Vol] 11.0 mg/dL Normal 7.0-18.[address] [facility] Comment on above: Performed By: #### B MP #### [facility] [address] [address] [address] Patria Sanders Urea nitrogen/Creatinine [Mass ratio] 13.8 mg/mg Normal [facility] Comment on above: Performed By: #### B MP #### [facility] [address] [place] [address] Dr. Patria Sanders PROTIMEon 09-15-2022 INR Coag (PPP) [Relative time] 1.02 {INR} Normal [facility] Comment on above: Performed By: #### P TT, PT #### [facility] [address] [place] [address] Dr. Patria Sanders INR GUIDELINES SEE BELOW Normal [facility] Comment on above: Result Comment: [place] RED INR: 2.0 - 3.0 CONDITIONS NOT LISTED BELOW 2.5 - 3.5 FOR PROSTHETIC HEART VALVE REPLACEMENT 2.5 - 3.5 RECURRENT THROMBOSIS Performed By: #### P TT, PT #### [facility] [address] [place] [address] Dr. Patria Sanders PT Coag (PPP) [Time] 10.8 s Normal 9.0-11.[address] [facility] Comment on above: Performed By: #### P TT, PT #### [facility] [address] [place] [address] Dr. Patria Sanders PTTon 09-15-2022 aPTT Coag (Bld) [Time] 32.0 s Normal 22.3-36.2 [facility] Comment on above: Performed By: #### P TT, PT #### [facility] [address] [place] [address] Dr. Patria Sanders [facility]04 SARS-CoV-2 (COVID-19) RNA NANCY+probe Ql (Unsp spec) Not detected Normal NOT DETECTED [facility] Comment on above: Result Comment: This test is not yet approved or cleared by the [place] FDA. When there are no FDA-approved or cleared tests available, and other criteria are met, FDA can make tests available under an emergency access mechanism called an Emergency Use Authorization (EUA). The EUA for this test is supported by the [place] of Health and Human Service's (HHS's) declaration [...] consistent with SARS-CoV-2. Performed By: #### [facility] #### [facility] [address] [place], [place] [address] Dr. Patria Sanders Hemoglobin A1Con 09-24-2021 EAG 128.37 Normal [facility] Comment on above: Performed By: #### A 1C #### [facility] [address], [place] [id number] HbA1c (Bld) [Mass fraction] 6.1 % High 4.0-6.0 [facility] Comment on above: Performed By: #### A 1C #### [facility] [address], [place] [id number] Testosteroneon 05-11-2021 TESTOS 314.70 ng/dL Normal 193.00-740.00 [facility] Comment on above: Performed By: #### T EST #### [facility] [address], [place] [id number] XR femur BIon 05-06-2021 XR femur BI [facility] Main [address] [address] XRay Report Signed Patient: Juan Miguel Jennings MR#: [id number] 27 : 1950 Acct:[id number] Age/Sex: 71 / M ADM Date: 05/06/21 Loc: ICXD Room: Type: [facility] Attending Dr: Maxwell Staley PA-C Ordering Provider: Maxwell Staley PA-C Date of Service: 05/06/21 XR/XR chest 2V*: Z01.818 ([id number]) XR/XR femur BI: Z01.818 ([id number]) XR/XR tibia/fibula BI: . Copies to: Maxwell [...] Rosanne Echeverria M.D.05/06/2021 3:12 PM Dictation Location: [place] [address] Transcribed By: [facility] 05/06/21 1512 Dictated By: Rosanne Echeverria MD 05/06/21 1506 Signed By: 05/06/21 1512 [facility] Progress Noteon 10-12-2017 HIM IP Note OR Vascular Manager [facility] Vital Signs Date Time Vital Sign Value Performing Clinician Facility 07-25-2024 10:010500 Body height 198.1 cm Jordan Duncan MD Work Phone: [facility] 07-25-2024 10:01-0500 Body mass index (BMI) [Ratio] 39.64 kg/m2 Jordan Duncan MD Work Phone: [facility] 07-25-2024 10:01-0500 Body weight 155.58 kg Jordan Duncan MD Work Phone: [facility] 07-25-2024 10:01-0500 Diastolic blood pressure 74 mm[Hg] Jordan Duncan MD Work Phone: [facility] 07-25-2024 10:01-0500 Heart rate 58 /min Jordan Duncan MD Work Phone: [facility] 07-25-2024 10:01-0500 SaO2% (BldA) [Mass fraction] 98 % Jordan Duncan MD Work Phone: [facility] 07-25-2024 10:01-0500 Systolic blood pressure 120 mm[Hg] Jordan Duncan MD Work Phone: [facility] 07-05-2024 13:45-0500 Diastolic blood pressure 72 mm[Hg] Mthz Schedule [facility] [employer] [facility] 07-05-2024 13:45-0500 Heart rate 77 /min Mthz Schedule [facility] [employer] [facility] Access 07-05-2024 13:45-0500 Systolic blood pressure 135 mm[Hg] [facility] 07-05-2024 13:16-0500 Body temperature 97.5 [degF] Mthz Schedule [facility] 07-05-2024 13:16-0500 Respiratory rate 18 /min Mthz Schedule [facility] 05-21-2024 10:44-0500 Blood Pressure Location Topher SAAVEDRA [facility] 05-21-2024 10:44-0500 Body temperature 98.6 [degF] Topher SAAVEDRA [facility] 05-21-2024 10:44-0500 Diastolic blood pressure 79 mm[Hg] Topher SAAVEDRA [facility] 05-21-2024 10:44-0500 Heart rate 58 /min Topher SAAVEDRA [facility] 05-21-2024 10:44-0500 Respiratory rate 16 /min Topher SAAVEDRA [facility] 05-21-2024 10:44-0500 Systolic blood pressure 133 mm[Hg] Topher SAAVEDRA [facility] 05-15-2024 10:21-0500 Body height 198.1 cm Brody Ibrahim DPM Work Phone: [facility] 05-15-2024 10:21-0500 Body mass index (BMI) [Ratio] 40.45 kg/m2 Brody Rusher DPM Work Phone: [facility] 05-15-2024 10:21-0500 Body weight 158.76 kg Brody Rusher DPM Work Phone: [facility] 04-23-2024 10:41-0500 Body height 198.1 cm Brody Rusher DPM Work Phone: [facility] 04-23-2024 10:41-0500 Body mass index (BMI) [Ratio] 40.45 kg/m2 Brody Rusher DPM Work Phone: [facility] 04-23-2024 10:41-0500 Body weight 158.76 kg Brody Rusher DPM Work Phone: [facility] 03-29-2024 12:49-0400 Body height 198.1 cm Brody Rusher DPM Work Phone: [facility] 03-29-2024 12:49-0400 Body mass index (BMI) [Ratio] 40.45 kg/m2 Brody Rusher DPM Work Phone: [facility] 03-29-2024 12:49-0400 Body weight 158.76 kg Brody Rusher DPM Work Phone: [facility] 03-27-2024 14:00-0400 Body height 198.1 cm Jordan Duncan MD Work Phone: [facility] 03-27-2024 14:00-0400 Body mass index (BMI) [Ratio] 40.45 kg/m2 Jordan Duncan MD Work Phone: [facility] 03-27-2024 14:00-0400 Body weight 158.76 kg Jordan Duncan MD Work Phone: [facility] 03-27-2024 14:00-0400 Diastolic blood pressure 76 mm[Hg] Jordan Duncan MD Work Phone: [facility] 03-27-2024 14:00-0400 Heart rate 71 /min Jordan Duncan MD Work Phone: [facility] 03-27-2024 14:00-0400 SaO2% (BldA) [Mass fraction] 97 % Jordan Duncan MD Work Phone: [facility] 03-27-2024 14:00-0400 Systolic blood pressure 128 mm[Hg] Jordan Duncan MD Work Phone: [facility] 03-13-2024 09:41-0400 Body height 198.1 cm Brody Ibrahim DPM [facility] [place] 03-13-2024 09:41-0400 Body mass index (BMI) [Ratio] 40.45 kg/m2 Brody Ibrahim DPM Work Phone: [facility] [place] 03-13-2024 09:41-0400 Body weight 158.76 kg Brody Ibrahim DPM Work Phone: [facility] [place] 12-05-2023 10:38-0400 Blood Pressure Location Topher SAAVEDRA [facility] 12-05-2023 10:38-0400 Body temperature 98.6 [degF] Topher SAAVED[facility] 12-05-2023 10:38-0400 Diastolic blood pressure 86 mm[Hg] Topher SAAVEDRA [facility] 12-05-2023 10:38-0400 Heart rate 69 /min Topher SAAVEDRA [facility] 12-05-2023 10:38-0400 Respiratory rate 16 /min Topher SAAVEDRA [facility] 12-05-2023 10:38-0400 Systolic blood pressure 136 mm[Hg] Topher SAAVEDRA [facility] 07-19-2023 10:37-0500 Body height 198.1 cm Brody Ibrahim DPM Work Phone: [facility] [place] 07-19-2023 10:37-0500 Body mass index (BMI) [Ratio] 39.87 kg/m2 Brody Ibrahim DPM Work Phone: [facility] [place] 07-19-2023 10:37-0500 Body weight 156.49 kg Brody Ibrahim DPM Work Phone: [facility] [place] 06-20-2023 10:33-0500 Blood Pressure Location Topher SAAVEDRA [facility] 06-20-2023 10:33-0500 Diastolic blood pressure 86 mm[Hg] Topher SAAVEDRA [facility] 06-20-2023 10:33-0500 Heart rate 70 /min Topher SAAVEDRA [facility] 06-20-2023 10:33-0500 Respiratory rate 16 /min Topher SAAVEDRA [facility] 06-20-2023 10:33-0500 Systolic blood pressure 139 mm[Hg] Topher SAAVEDRA [facility] 11-05-2022 10:12-0400 Blood Pressure Location Topher SAAVEDRA [facility] 11-05-2022 10:12-0400 Diastolic blood pressure 78 mm[Hg] Topher SAAVEDRA [facility] 11-05-2022 10:12-0400 Heart rate 68 /min Topher SAAVEDRA [facility] 11-05-2022 10:12-0400 Respiratory rate 16 /min Topher SAAVEDRA [facility] 11-05-2022 10:12-0400 Systolic blood pressure 130 mm[Hg] Topher SAAVEDRA [facility] 11-03-2022 14:34-0400 Body temperature 97.5 [degF] Mthz Schedule [facility] 11-03-2022 14:34-0400 Diastolic blood pressure 77 mm[Hg] [facility] 11-03-2022 14:34-0400 Heart rate 72 /min [facility] Schedule [facility] 11-03-2022 14:34-0400 Respiratory rate 18 /min Mth[facility] Schedule [facility] 11-03-2022 14:34-0400 Systolic blood pressure 140 mm[Hg] Mthz Schedule [facility] 06-18-2022 08:55-0500 Blood Pressure Location Topher SAAVEDRA [facility] 06-18-2022 08:55-0500 Diastolic blood pressure 82 mm[Hg] Topher SAAVEDRA [facility] 06-18-2022 08:55-0500 Heart rate 80 /min Topher SAAVEDRA [facility] 06-18-2022 08:55-0500 Respiratory rate 16 /min Topher SAAVEDRA [facility] 06-18-2022 08:55-0500 Systolic blood pressure 132 mm[Hg] Topher SAAVEDRA [facility] 05-17-2022 09:43-0500 Blood Pressure Location Topher SAAVEDRA [facility] 05-17-2022 09:43-0500 Diastolic blood pressure 92 mm[Hg] Topher SAAVEDRA [facility] 05-17-2022 09:43-0500 Heart rate 63 /min Topher SAAVEDRA [facility] 05-17-2022 09:43-0500 Systolic blood pressure 143 mm[Hg] Topher SAAVEDRA [facility] 02-01-2022 09:48-0400 Blood Pressure Location Topher SAAVEDRA [facility] 02-01-2022 09:48-0400 Diastolic blood pressure 66 mm[Hg] Topher SAAVEDRA [facility] 02-01-2022 09:48-0400 Heart rate 84 /min Topher SAAVEDRA [facility] 02-01-2022 09:48-0400 Respiratory rate 16 /min Topher SAAVEDRA [facility] 02-01-2022 09:48-0400 Systolic blood pressure 98 mm[Hg] Topher SAAVEDRA [facility] 01-28-2022 13:48-0400 Diastolic blood pressure 76 mm[Hg] Mthz Lab Schedule [facility] 01-28-2022 13:48-0400 Heart rate 56 /min [facility] Lab Schedule [facility] 01-28-2022 13:48-0400 Respiratory rate 18 /min [facility] Lab Schedule [facility] 01-28-2022 13:48-0400 Systolic blood pressure 135 mm[Hg] [facility]th[facility] Lab Schedule [facility] 01-28-2022 13:25-0400 Body temperature 97.39 [degF] [facility] Lab Schedule [facility] 10-22-2020 12:25-0400 Body temperature 97.81 [degF] Mthz Schedule [facility] Work Phone: 10-22-2020 12:25-0400 Heart rate 67 /min [facility] Schedule [facility] Work Phone: 07-27-2019 08:03-0500 Body Temperature 96.3 [degF] [facility] Schedule [facility] [place] 07-27-2019 08:03-0500 BP Diastolic 80 mm[Hg] [facility] Schedule [facility] [place] , [place] 07-27-2019 08:03-0500 BP Systolic 129 mm[Hg] [facility] Schedule [facility] [place] , [place] 07-27-2019 08:03-0500 Pulse (Heart Rate) 63 /min [facility] Schedule [facility] [place], [place] 07-27-2019 08:03-0500 Respiratory Rate 20 /min [facility] [place] 03-13-2019 08:02-0400 Body Temperature 96.69 [degF] [facility] Schedule [facility] [place] 03-13-2019 08:02-0400 BP Diastolic 83 mm[Hg] [facility] Schedule [facility] [place] 03-13-2019 08:02-0400 BP Systolic 162 mm[Hg] [facility] Schedule [facility] [place] 03-13-2019 08:02-0400 Pulse (Heart Rate) 74 /min [facility] Schedule [facility] [place], [place] 03-13-2019 08:02-0400 Respiratory Rate 20 /min [facility] Schedule [facility] [place] 01-12-2019 08:03-0400 Body Temperature 96.91 [degF] [facility] Schedule [facility] [place] 01-12-2019 08:03-0400 BP Diastolic 87 mm[Hg] [facility] [place] [facility] [place] 01-12-2019 08:03-0400 BP Systolic 152 mm[Hg] [facility] [place] [facility] [place] 01-12-2019 08:03-0400 Pulse (Heart Rate) 63 /min [facility] [place] 01-12-2019 08:03-0400 Respiratory Rate 20 /min [facility] [place] Encounters Encounter Date Encounter Type Care Provider Facility Start: 09-18-2024 End: 09-18-2024 Bamboo flowsheet Jordan Duncan MD Work Phone: [facility] Start: 09-18-2024 End: 09-18-2024 Bamboo flowsheet Jordan Duncan MD Work Phone: [facility] Start: 09-13-2024 End: 09-13-2024 Refill Jordan Duncan MD Work Phone: [facility] Comment on above: Dyspepsia Start: 07-25-2024 End: 07-25-2024 Bamboo flowstony Duncan MD Work Phone: [facility] [...] Morbid (severe) obesity due to excess calories (CMS/HCC); BMI 39.0-39.9,adult; Type 2 diabetes mellitus with diabetic polyneuropathy, without long-term current use of insulin ([facility]); Type 2 diabetes mellitus with diabetic microalbuminuria, without long-term current use of insulin ([facility]); Type 2 diabetes mellitus with foot ulcer (CODE) ([facility]); Non-pressure chronic ulcer of other part of unspecified foot with unspecified severity ([facility]); Partial nontraumatic amputation of right foot ([facility]); Partial nontraumatic amputation of foot, left ([facility]); Atherosclerosis of [place] coronary artery of [place] heart without angina pectoris ([facility]); History of myocardial infarction ([facility]); Mixed hyperlipidemia ([facility]); Adverse reaction to statin medication; Primary open angle glaucoma of both eyes, unspecified glaucoma stage ([facility]) Start: 07-25-2024 End: 07-25-2024 ambulatory JORDAN DUNCAN Not Available Start: 07-16-2024 End: 07-16-2024 ambulatory [facility] Start: 07-05-2024 End: 07-05-2024 [facility] Start: 07-05-2024 End: 07-05-2024 Subsequent hospital [...] 05-21-2024 End: 05-21-2024 ambulatory Topher SAAVEDRA Facility:[facility] Start: 05-21-2024 End: 05-21-2024 Patient encounter procedure Topher SAAVEDRA [facility] Start: 05-15-2024 End: 05-15-2024 ambulatory BRODY IBRAHIM Not Available Start: 05-15-2024 End: 05-15-2024 Postop follow up visit related to original px Brody Ibrahim DPM Work Phone: [facility] Comment on above: Diabetic [...] Unsolicited Start: 05-08-2024 ambulatory Topher SAAVEDRA Facili ty: [place] Start: 05-02-2024 End: 05-02-2024 ambulatory [facility] Start: 04-23-2024 End: 04-23-2024 Bamboo flowsheet Brody Ibrahim DPM Work Phone: [facility] Start: 04-23-2024 End: 04-23-2024 Bamboo flowsheet Brody Ibrahim DPM Work Phone: [facility] Start: 04-23-2024 End: 04-23-2024 ambulatory Topher SAAVEDRA Facility:[facility] Start: 04-23-2024 End: 04-23-2024 Patient encounter procedure Topher SAAVEDRA [facility] Comment on above: Diabetic polyneuropa thy associated with type 2 diabetes mellitus (CMS/HCC) (Primary Dx); Nontraumatic amputation of foot, left (CMS/HCC); Nontraumatic amputation of foot, right (CMS/HCC) Start: 04-09-2024 End: 04-09-2024 Telephone encounter Brody Ibrahim DPM Work Phone: [facility] Comment on above: Advice Only (orthoti cs) Start: 03-29-2024 End: 03-29-2024 Bamboo flowsheet Brody Ibrahim DPM Work Phone: [facility] Start: 03-29-2024 End: 03-29-2024 Bamboo flowsheet Brody Ibrahim DPM Work Phone: [facility] Start: 03-29-2024 End: 03-29-2024 Postop follow up visit related to original px Brody Ibrahim DPM Work Phone: [facility] Comment on above: Diabetic [...] use of insulin (CMS/HCC); Microalbuminuria; Essential hypertension ([facility]HCC); Mixed hyperlipidemia ([facility]/HCC); Adverse reaction to statin medication; Former smoker; Morbid obesity ([facility]/HCC) Start: 03-27-2024 End: 03-27-2024 ambulatory JORDAN DUNCAN Not Available Start: 03-27-2024 End: 03-27-2024 ambulatory Topher SAAVEDRA Facility:[facility] Start: 03-27-2024 End: 03-27-2024 Patient encounter procedure Topher SAAVEDRA [facility] Start: 03-13-2024 End: 03-13-2024 BamSpineFormheet Brody Ibrahim DPM Work Phone: [facility] Start: 03-13-2024 End: 03-13-2024 Avimotoheet Brody Ibrahim DPM Work Phone: [facility] Start: 03-13-2024 End: 03-13-2024 Patient encounter procedure Brody Ibrahim DPM Work Phone: [facility] Comment on above: Acquired keratoderma (Primary Dx); Diabetic polyneuropathy associated with type 2 diabetes mellitus ([facility]/HCC); Nontraumatic amputation of foot, left ([facility]/HCC); Nontraumatic amputation of foot, right ([facility]) Start: 03-13-2024 End: 03-13-2024 ambulatory BRODY IBRAHIM Not Available Start: 03-01-2024 End: 03-01-2024 ambulatory JORDAN DUNCAN [facility] Start: 02-27-2024 End: 02-27-2024 ambulatory Topher SAAVEDRA Facility:[facility] Start: 02-27-2024 End: 02-27-2024 Patient encounter procedure Topher SAAVEDRA [facility] Start: 01-31-2024 End: 01-31-2024 ambulatory Fernanda Solomon Facility:[facility] Start: 01-31-2024 End: 01-31-2024 Patient encounter procedure [facility] Start: 01-10-2024 End: 01-10-2024 ambulatory BRODY A RUSHER Not Available Start: 01-03-2024 End: 01-03-2024 ambulatory Topher SAAVEDRA Facility:[facility] [place] Start: 12-06-2023 End: 12-06-2023 ambulatory BRODY IBRAHIM Not Available Start: 12-05-2023 End: 12-05-2023 ambulatory Topher SAAVEDRA Facility:[facility] [place] Start: 12-05-2023 End: 12-05-2023 Patient encounter procedure [facility] Start: 11-09-2023 End: 11-09-2023 ambulatory EDANGUS J MAICOLYER [facility] Start: 11-07-2023 End: 11-07-2023 ambulatory Topher SAAVEDRA Facility:[facility] [place] Start: 11-07-2023 End: 11-07-2023 Patient encounter procedure [facility] Start: 10-27-2023 End: 10-27-2023 ambulatory EDNAGUS J MAICOLYER Not Available Start: 10-12-2023 End: 10-12-2023 ambulatory EDWARD J HEMEYER Not Available Start: 10-07-2023 End: 10-07-2023 ambulatory Topher SAAVEDRA Facility:[facility] [place] Start: 10-07-2023 End: 10-07-2023 Patient encounter procedure [facility] Start: 09-27-2023 End: 09-27-2023 ambulatory BRODY BROOKSHER Not Available Start: 09-09-2023 End: 09-09-2023 ambulatory Topher Smita KERI Facility:[facility] [place] Start: 09-09-2023 End: 09-09-2023 Patient encounter procedure Topher R KERI [facility] Start: 08-15-2023 End: 08-15-2023 ambulatory Topher Smita KERI Facility:[facility] Start: 08-15-2023 End: 08-15-2023 Patient encounter procedure Topher R KERI [facility] Start: 07-19-2023 Bamboo flowsheet Brody dykes DPM Work Phone: [facility] Start: 07-19-2023 Bamboo flowsheet Brody Tyler DPM Work Phone: [facility] Start: 07-19-2023 End: 07-19-2023 Patient encounter procedure Brody Ibrahim DPM Work Phone: [facility] Comment on above: Dermatophytosis of n ail (Primary Dx); Dystrophic nail; Diabetic polyneuropathy associated with type 2 diabetes mellitus ([facility]/HCC); Nontraumatic amputation of foot, right ([facility]CC); Nontraumatic amputation of foot, left ([facility]); Acquired keratoderma Start: 07-18-2023 End: 07-18-2023 ambulatory Topher R KERI Facility:[facility] [place] Start: 07-18-2023 End: 07-18-2023 Patient encounter procedure Topher Smita KERI [facility] Start: 06-20-2023 End: 06-20-2023 ambulatory Topher Smita KERI Facility:[facility] Start: 06-20-2023 End: 06-20-2023 Patient encounter procedure Topher SAAVEDRA [facility] Start: 05-09-2023 End: 05-09-2023 Patient encounter procedure Topher SAAVEDRA [facility] Start: 04-04-2023 End: 04-04-2023 Patient encounter procedure Topher SAAVEDRA [facility] [place] Start: 02-08-2023 End: 02-08-2023 Patient encounter procedure JORDAN DUNCAN [facility] [place] Start: 01-03-2023 End: 01-03-2023 Patient encounter procedure Topher SAAVEDRA Yappn [facility] Start: 12-03-2022 End: 12-03-2022 Patient encounter procedure Topher SAAVEDRA [facility] [place] Start: 11-05-2022 End: 11-05-2022 Patient encounter procedure Topher SAAVEDRA [facility] [place] [facility] Start: 11-03-2022 End: 11-03-2022 Subsequent hospital visit by physician Dem[facility] Room 7 Schedule [facility] Comment on above: Polycythemia (Primar y Dx) Start: 10-25-2022 End: 10-26-2022 ambulatory ARNOLD PEOPLES Facility:[facility] Start: 10-05-2022 End: 10-06-[address] JORDAN DUNCAN . Facility:[facility] Start: 10-05-2022 End: 10-05-2022 Patient encounter procedure [facility] Start: 09-30-2022 End: 09-30-[address] TOPHER SAAVEDRA . Facility:[facility] Start: 09-27-2022 End: 09-28-2022 ambulatory ARNOLD PEOPLES Facility:[facility] Start: 09-20-2022 End: 09-21-2022 ambulatory [facility] Facility:[facility] Start: 09-20-2022 Encounter for preprocedural cardiovascular examination DR TOPHER SAAVEDRA . [facility] Start: 09-20-2022 Encounter for preprocedural laboratory examination DR TOPHER SAAVEDRA . [facility] Start: 09-20-2022 Encounter for preprocedural respiratory examination DR TOPHER SAAVEDRA . [facility] Start: 09-15-2022 End: 09-16-[address] TOPHER SAAVEDRA . Facility:[facility] Start: 09-15-2022 End: 09-16-2022 Encounter for preprocedural laboratory examination DR TOPHER SAAVEDRA . Facility:[facility] Start: 09-06-2022 End: 09-06-2022 Patient encounter procedure Topher SAAVEDRA [facility] Start: 06-18-2022 End: 06-18-2022 Patient encounter procedure Topher SAAVEDRA [facility] Start: 05-20-2022 End: 05-21-2022 ambulatory [facility] Facility:[facility] Start: 05-17-2022 End: 05-17-2022 Patient encounter procedure Topher SAAVEDRA [facility] Start: 04-21-2022 End: 04-22-2022 ambulatory [facility] Facility:[facility] Start: 04-21-2022 End: 04-21-2022 Patient encounter procedure Mandy Schaefer [facility] Start: 04-09-2022 End: 04-10-2022 ambulatory [facility] Facility:[facility] Start: 03-31-2022 End: 03-31-2022 Patient encounter procedure Mandy Schaefer [facility] Start: 03-22-2022 End: 03-23-2022 ambulatory [facility] Facility:[facility] Start: 03-03-2022 End: 03-03-2022 Patient encounter procedure Mandy Schaefer [facility] Start: 02-01-2022 End: 02-01-2022 Patient encounter procedure Topher SAAVEDRA [facility] Start: 01-28-2022 End: 01-28-2022 [facility] Comment on above: Polycythemia (Primar y Dx) Start: 01-18-2022 End: 01-18-[address] JORDAN DUNCAN . Facility:[facility] Start: 01-06-2022 End: 01-07-2022 ambulatory [facility] Facility:[facility] Start: 12-21-2021 End: 12-21-2021 Patient encounter procedure Topher SAAVEDRA [facility] Start: 11-23-2021 End: 11-23-2021 Patient encounter procedure Topher SAAVEDRA [facility] Start: 10-26-2021 End: 10-26-2021 Patient encounter procedure Topher SAAVEDRA [facility] [place] Start: 09-28-2021 End: 09-28-2021 Patient encounter procedure Topher SAAVEDRA [facility] Start: 08-31-2021 End: 08-31-2021 Patient encounter procedure Topher SAAVEDRA [facility] Start: 10-22-2020 End: 10-22-2020 Subsequent hospital visit by physician [facility] Med Onc Room 9 Schedule [facility] Comment on above: Polycythemia (Primar y Dx) Start: 07-27-2019 End: 07-27-2019 Subsequent hospital visit by physician [facility] Med Onc Room 9 Schedule [facility] Comment on above: Polycythemia (Primar y Dx) Start: 03-13-2019 End: 03-13-2019 Subsequent hospital visit by physician [facility] Med Onc Room 9 Schedule [facility] Comment on above: Polycythemia (Primar y Dx) Start: 01-12-2019 End: 01-12-2019 Subsequent hospital visit by physician [facility] Med Onc Room 9 Schedule [facility] Start: 02-16-2018 End: 02-17-2018 Patient encounter DEFAULT PHYSICIAN Facility:[facility] Procedures Date Procedure Procedure Detail Performing Clinician [...] disease S/P JORY - LCX & RCA ([id number] [id number]) [facility] Schedule BACK SURGERY Topher SAAVEDRA Placement of stent [facility] Agustin SAAVEDRA RIGHT VEIN REMOVED F ROM LEG Topher SAAVEDRA Plan of Treatment Date Care Activity Detail Author Start: 12-17-2030 Screening for malignant neoplasm of colon [facility] Start: 09-29-2025 Glaucoma screening Diabetes: Retinopathy Screening [facility] Start: 07-25-2025 Medicare Annual Wellness (AWV) Medicare Annual Wellness (AWV) [facility] Start: 02-21-2025 GFR test (Diabetes, CKD 3-4, OR last GFR 15-59) GFR test (Diabetes, CKD 3-4, OR last GFR 15-59) [facility] Start: 12-12-2024 Hemoglobin A1c measurement Diabetes: Hemoglobin A1C [facility] Start: 10-26-2024 End: 10-26-2024 Patient encounter procedure 10/26/2024 1:00 PM EDT Appointment [facility] [address] [place] [address] phlebotomy [facility] Comment on above: phlebotomy Start: 10-17-2024 End: 10-17-2024 Patient encounter procedure 10/17/2024 1:00 PM EDT Office Visit [facility] [place] [id number] Newton Stevenson MD [address] [place] [address] F/U polycythemia, anal cancer [facility] Comment on above: F/U polycythemia, anal cancer Start: 10-04-2024 Urine screening for protein Diabetes: Urine Protein Screening [facility] Start: 09-18-2024 End: 09-18-2024 Patient encounter procedure [facility] Comment on above: Essential hypertension (CMS/HCC); Microalbuminuria; Mixed hyperlipidemia (CMS/HCC); Type 2 diabetes mellitus with diabetic microalbuminuria, without long-term current use of insulin (CMS/HCC); Type 2 diabetes mellitus with diabetic polyneuropathy, without long-term current use of insulin (CMS/HCC) Start: 08-25-2024 End: 03-27-2025 Comprehensive metabolic 2000 panel - Serum or Plasma Comprehensive metabolic panel Lab Routine Type 2 diabetes mellitus with diabetic polyneuropathy, without long-term current use of insulin ([facility]) Essential hypertension ([facility]/HCC) Expected: 08/25/2024, Expires: 03/27/2025 [facility] Work Phone: Comment on above: Expected: 08/25/2024, Expires: Start: 08-25-2024 End: 03-27-2025 Hemoglobin A1c/Hemoglobin.total in Blood Hemoglobin A1c Lab Routine Type 2 diabetes mellitus with diabetic polyneuropathy, without long-term current use of insulin ([facility]CC) Expected: 08/25/2024, Expires: 03/27/2025 [facility] Comment on above: Expected: 08/25/2024, Expires: Start: 08-25-2024 End: 03-27-2025 Lipid 1996 panel - Serum or Plasma Lipid panel Lab Routine Mixed hyperlipidemia ([facility] [facility] Expected: 08/25/2024, Expires: 03/27/2025 [facility] Comment on above: Expected: 08/25/2024, Expires: Start: 07-25-2024 End: 07-25-2024 Patient encounter procedure 07/25/2024 11:00 AM EST Office Visit [facility] [address] [facility] [address] [place] [address] Jordan Duncan MD 112 [facility] [address] [place] [address] Encounter for Medicare annual wellness exam; Advance directive in chart; Encounter for screening for other disorder; Screening for alcohol problem; Morbid (severe) obesity due to excess calories ([facility]/HCC); Body mass index (BMI) 40.0-44.9, adult ([facility]) [facility] Comment on above: Encounter for Medicare annual wellness e xam; Advance directive in chart; Encounter for screening for other disorder; Screening for alcohol problem; Morbid (severe) obesity due to excess calories (CMS/HCC); Body mass index (BMI) 40.0-44.9, adult ([facility]) Start: 06-21-2024 Hemoglobin A1c measurement Diabetes: Hemoglobin A1C [facility] Start: 05-17-2024 Medicare Annual Wellness (AWV) Medicare Annual Wellness (AWV) [facility] Start: 05-15-2024 End: 05-15-2024 Patient encounter procedure 05/15/2024 10:15 AM EST Office Visit [facility] [address] [place] [id number] Brody Ibrahim DPM [address] [place] [address] [facility] Start: 04-23-2024 End: 04-23-2024 Patient encounter procedure 04/23/2024 11:00 AM EST Office Visit [facility] [address] [place] [phone] Brody Ibrahim DPM [address] [place] [address] [facility] Start: 04-09-2024 End: 04-09-2024 Patient encounter procedure 04/09/2024 9:30 AM EST Office Visit [facility] [address] [address] Jordan Duncan MD [address] [place] [address] [facility] 100 Start: 03-29-2024 End: 03-29-2024 Patient encounter procedure 03/29/2024 1:00 PM EDT Office Visit [facility] [address] [place] [phone] Brody Ibrahim, KATLIN [address] [place] [address] Arrived [facility] Comment on above: Arrived Start: 03-27-2024 End: 03-27-2024 Patient encounter procedure 03/27/2024 2:00 PM EDT Office Visit [facility] 100 [address] [place] [address] Jordan Duncan MD [address] [place] [address] (Fax) Type 2 diabetes mellitus with diabetic [...] procedure 03/13/2024 9:45 AM EDT Office Visit [facility] [address] [place] [phone] Brody Ibrahim DPM [address] [place], [place] [id number] Arrived [facility] Comment on above: Arrived Start: 02-05-2024 COVID-19 Vaccine ( season) COVID-19 Vaccine ( season) [facility] Start: 02-05-2024 Influenza vaccination Influenza Vaccine (#1) [facility] Start: 01-05-2024 Hemoglobin A1c measurement Diabetes: Hemoglobin A1C [facility] Start: 11-26-2023 Glaucoma screening Diabetes: Retinopathy Screening [facility] Start: 10-29-2023 GFR test (Diabetes, CKD 3-4, OR last GFR 15-59) GFR test (Diabetes, CKD 3-4, OR last GFR 15-59) [facility] Start: 10-26-2023 End: 10-26-2023 Patient encounter procedure 10/26/2023 Office Visit Oncology Newton Stevenson MD [address] [place] [address] [facility] Start: 10-12-2023 End: 10-12-2023 Patient encounter procedure 10/12/2023 9:30 AM EDT Office Visit [facility] [address] [place] [address] Jordan Duncan MD [address] [place] [address] (Fax) [facility] Start: 09-27-2023 End: 09-27-2023 Patient encounter procedure 09/27/2023 11:00 AM EDT Procedure Visit [facility] [address] [place] [phone] Brody Ibrahim DPAna [address] [place] [address] [facility] Start: 07-14-2023 Hemoglobin A1c measurement Diabetes: Hemoglobin A1C [facility] Start: 05-02-2023 Annual Wellness Visit (Medicare) Annual Wellness Visit (Medicare) [facility] Start: 10-20-2022 End: 10-20-2022 Patient encounter procedure 10/20/2022 Office Visit Oncology Newton Stevenson MD [address] [place] [address] [facility] Start: 09-24-2022 Hemoglobin A1c measurement A1C test (Diabetic or Prediabetic) [facility] Start: 02-04-2022 Influenza vaccination Flu vaccine (#1) [facility] Start: 11-11-2021 Urine screening for protein [facility] Start: 10-21-2021 End: 10-21-2021 Patient encounter procedure 10/21/2021 Office Visit Oncology Newton Stevenson MD [address] [place] [address] [facility] Start: 10-16-2021 COVID-19 Vaccine (4 - Booster for Pfizer series) COVID-19 Vaccine (4 - Booster for Pfizer series) [facility] Start: 10-14-2021 Lipid panel Lipids [facility] Start: 10-24-2019 End: 10-24-2019 Office Visit [facility] Start: 07-31-2019 End: 07-31-2019 Appointment 07/31/2019 Appointment Infusion Therapy [facility] Start: 04-30-2019 End: 04-30-2019 Appointment 04/30/2019 Appointment Infusion Therapy [facility] Start: 02-04-2019 Influenza vaccination Flu vaccine (#1) [place], [place] Start: 11-26-2018 Annual Wellness Visit (AWV) Annual Wellness Visit (AWV) [facility] Start: 08-17-2017 Creatinine measurement Creatinine monitoring [facility] Work Phone: Start: 08-17-2017 Creatinine monitoring Creatinine monitoring [place], [place] Start: 08-17-2017 Potassium monitoring Potassium monitoring [place] Start: 08-04-2017 A1C test (Diabetic or Prediabetic) A1C test (Diabetic or Prediabetic) [place] Start: 08-04-2017 Hemoglobin A1c measurement A1C test (Diabetic or Prediabetic) [facility] Start: 02-10-2017 Abdominal aortic aneurysm screening AAA screen [facility] Start: 02-10-2017 Pneumococcal 65+ years Vaccine (1 of 2 - PCV13) Pneumococcal 65+ years Vaccine (1 of 2 - PCV13) [place] Start: 01-29-2017 Shingles Vaccine (2 of 3) Shingles Vaccine (2 of 3) [facility] Start: 02-10-2015 Annual Wellness Visit (AWV) Annual Wellness Visit (AWV) [place] Start: 2012 Respiratory Syncytial Virus (RSV) or age 60 yrs+ (1 - Risk 60-74 years 1-dose series) Respiratory Syncytial Virus (RSV) or age 60 yrs+ (1 - Risk 60-74 years 1-dose series) [facility] Start: 02-10-2002 Colon cancer screen colonoscopy Colon cancer screen colonoscopy [place], [place] Start: 02-10-2002 Screening for malignant neoplasm of colon Colon cancer screen colonoscopy [facility] Work Phone: Start: 02-10-2002 Shingles Vaccine (1 of 2) Shingles Vaccine (1 of 2) [place], [place] Start: 02-10-1997 Screening for malignant neoplasm of colon [facility] Start: 02-10-1971 DTaP/Tdap/Td vaccine (1 - Tdap) DTaP/Tdap/Td vaccine (1 - Tdap) [facility] Start: 02-10-1971 Hepatitis B vaccine (1 of 3 - Risk 3-dose series) Hepatitis B vaccine (1 of 3 - Risk 3-dose series) [place] Start: 02-10-1970 Diabetic microalbuminuria test Diabetic microalbuminuria test [place] Start: 02-10-1970 Diabetic retinal exam Diabetic retinal exam [facility] Start: 02-10-1970 Glaucoma screening Diabetic retinal exam [facility] Start: 02-10-1970 Hepatitis C screening Hepatitis C screen [facility] Start: 02-10-1970 Urine screening for protein Diabetic Alb to Cr ratio (uACR) test [facility] Start: 1964 Depression Screen Depression Screen [facility] Start: 02-10-1963 DTaP/Tdap/Td vaccine (1 - Tdap) DTaP/Tdap/Td vaccine (1 - Tdap) [place] Start: 02-10-1962 [object Object] Diabetic foot exam [place] Start: 02-10-1962 Diabetic foot examination Diabetic foot exam [facility] Start: 02-10-1962 Diabetic retinal exam Diabetic retinal exam [place] Start: 02-10-1962 Lipid panel [facility] Start: 02-10-1962 Lipid screen Lipid screen [place] Start: 1952 Annual Wellness Visit (AWV) Annual Wellness Visit (AWV) [facility] Start: 1950 Hepatitis C screen Hepatitis C screen [place], [place] Start: 1952 Hepatitis C screening Hepatitis C screen [facility] Work Phone: Start: 1950 Screening for malignant neoplasm of colon [facility] End: 07-05-2024 Phlebotomy therapeutic Phlebotomy therapeutic Procedures Routine One Time for 1 Occurrences starting 07/05/2024 until 07/05/2024 Kitty Hym[facility] Work Phone: Comment on above: One Time for 1 Occurrences starting 06/08 until 07/05/2024 Immunizations Immunization Date Immunization Notes Care Provider [facility] 03-28-2024 influenza, seasonal, injectable Brody Ibrahim DPM Work Phone: [facility] 03-28-2024 Seasonal trivalent influenza vaccine, adjuvanted, preservative free Brody Ibrahim DPM Work Phone: [facility] 02-28-2023 influenza virus vacc ine, unspecified formulation Topher SAAVEDRA [facility] 02-28-2023 Influenza, Seasonal, Quadrivalent, Adjuvanted Brody Ibrahim DPM Work Phone: [facility] 04-16-2022 influenza virus vacc ine, unspecified formulation Topher SAAVEDRA [facility] 04-16-2022 Influenza, Seasonal, Quadrivalent, Adjuvanted Brody Ibrahim DPM Work Phone: [facility] 03-23-2022 Moderna Bivalent Simmons ster Vaccination Brody Ibrahim DPM Work Phone: [facility] 03-23-2022 Moderna SARS-CoV-2 50mcg/0.5mL Booster Brody Ibrahim DPM Work Phone: [facility] 03-23-[address] 12 Years And Older Brody Ibrahim DPM Work Phone: [facility] 03-23-2022 SARS-CoV-2 (COVID-19 ) [id number] Topher SAAVEDRA [facility] 06-18-2021 SARS-CoV-2 (COVID-19 ) mRNA BNT-162b2 vax Topher SAAVEDRA [facility] 05-06-2021 influenza virus vacc ine, unspecified formulation Topherpeter SAAVEDRA [facility] 05-06-2021 Influenza, Seasonal, Quadrivalent, Adjuvanted Brody Ibrahim DPM Work Phone: [facility] 05-06-2021 SARS-CoV-2 (COVID-19 ) Ad26 vaccine, recombinant Topher SAAVEDRA [facility] 08-28-2020 SARS-CoV-2 (COVID-19 ) mRNA BNT-162b2 vax Topher SAAVEDRA [facility] 08-28-2020 SARS-CoV-2, Unspecified Garry Ibrahim DPM Work Phone: [facility] 08-27-2020 Pfizer Purple Cap SARS-CoV-2 Vaccination Brody Ibrahim DPM Work Phone: [facility] 08-08-2020 SARS-CoV-2 (COVID-19 ) mRNA BNT-162b2 vax Topher SAAVEDRA [facility] Comment on above: Result Comment: 2022: [id number] 08-08-2020 SARS-CoV-2, Unspecified Garry Ibrahim DPM Work Phone: [facility] 08-07-2020 Pfizer Purple Cap SARS-CoV-2 Vaccination Brody Ibrahim DPM Work Phone: [facility] 08-04-2020 SARS-CoV-2 (COVID-19 ) Ad26 vaccine, recombinant Topher SAAVEDRA [facility] 03-22-2020 influenza virus vacc ine, unspecified formulation Topher SAAVEDRA [facility] 03-22-2020 Influenza, Seasonal, Quadrivalent, Adjuvanted Brody Rusher DPM Work Phone: [facility] 03-06-2019 pneumococcal conjuga te vaccine, 13 valent Topehr SAAVEDRA [facility] 03-05-2019 influenza virus vacc ine, unspecified formulation Topher SAAVEDRA [facility] 03-05-2019 influenza, high dose seasonal, preservative-free Brody Rusher DPM Work Phone: [facility] 03-05-2019 pneumococcal polysaccharide vaccine, 23 valent Topher SAAVEDRA [facility] 03-04-2019 Influenza, High-dose Seasonal, Quadrivalent, Preservative Free Brody Rusher DPM Work Phone: [facility] 03-04-2019 pneumococcal polysaccharide vaccine, 23 valent Brody Rusher DPM Work Phone: [facility] 03-03-2018 influenza virus vacc ine, unspecified formulation Topher SAAVEDRA [facility] 03-03-2018 influenza, high dose seasonal, preservative-free Brody Rusher DPM Work Phone: [facility] 03-03-2018 pneumococcal conjuga te vaccine, 13 valent Topher SAAVEDRA [facility] 03-03-2018 pneumococcal polysaccharide vaccine, 23 valent Brody Rusher DPM Work Phone: [facility] 03-02-2018 pneumococcal conjuga te vaccine, 13 valent Brody Ibrahim DPM Work Phone: [facility] 04-06-2017 influenza virus vacc ine, unspecified formulation Topher SAAVEDRA [facility] 04-06-2017 influenza, injectabl e, quadrivalent, preservative free Brody Ibrahim DPM Work Phone: [facility] 12-04-2016 pneumococcal polysaccharide vaccine, 23 valent Topher SAAVEDRA [facility] 12-04-2016 zoster vaccine, live Topher SAAVEDRA [facility] 03-06-2016 Influenza Vaccine, unspecified formulation Mthz Schedule [facility] 03-06-2016 influenza virus vacc ine, H5N1, A/[place] (national stockpile) Brody Ibrahim DPM Work Phone: [facility] 03-06-2016 influenza virus vacc ine, unspecified formulation Brody Ibrahim DPM Work Phone: [facility] 03-06-2016 Influenza, High-dose Seasonal, Quadrivalent, Preservative Free Brody Ibrahim DPM Work Phone: [facility] 03-06-2016 influenza, unspecifi ed formulation Topher SAAVEDRA [facility] 01-23-2016 influenza virus vacc ine, unspecified formulation Topher SAAVEDRA [facility] 01-23-2016 influenza, injectabl e, quadrivalent, preservative free Brody Ibrahim DPM Work Phone: [facility] 06-06-2015 pneumococcal polysaccharide vaccine, 23 valent Topher SAAVEDRA [facility] 03-23-2014 influenza virus vacc ine, unspecified formulation Topher SAAVEDRA [facility] 03-23-2014 influenza, seasonal, injectable Brody Ibrahim DPM Work Phone: [facility] 04-06-2013 influenza virus vacc ine, unspecified formulation Topher SAAVEDRA [facility] 04-06-2013 influenza, seasonal, injectable Brodygarrick Ibrahim DPM Work Phone: [facility] 04-06-2013 zoster vaccine, live Topher SAAVEDRA [facility] 04-05-2013 zoster vaccine, live Brodygarrick Ibrahim DPM Work Phone: [facility] 04-21-2009 novel influenza-H1N1 -09, preservative-free, injectable Brody Alexandria DPM Work Phone: [facility] Payers Date Payer Category Payer Private Health [place] [id number] 2022 Unknown 2017 Medicare [id number] 2017 Medicare xxxxxxxxxxx [id number] .[id number] 1959 Medicare [id number] [id number] .7.3.878044.315 1959 Private Health Insurance [id number] 1.2.840.053197.1.13.239.2 .7.3.863988.315 1952 Unknown [id number] 2.16.840.1.808460.3.579.2 .593 1952 Unknown [id number] 2.16.840.1.431389.3.579.2 .593 1952 Unknown [id number] 2.16.840.1.793837.3.579.2 .593 1952 Unknown [id number] 2.16.840.1.232675.3.579.2 .593 1952 Unknown [id number] 2.16.840.1.083777.3.579.2 .593 1952 Unknown [id number] 2.16.840.1.529178.3.579.2 .593 1952 Unknown [id number] 2.16.840.1.586804.3.579.2 .593 1952 Unknown [id number] 2.16.840.1.640308.3.579.2 .593 1952 Unknown [id number] 2.16.840.1.481975.3.579.2 .593 1952 Unknown [id number] 2.16.840.1.866453.3.579.2 .593 1952 Unknown [id number] 2.16.840.1.541625.3.579.2 .593 1952 Unknown [id number] 2.16.840.1.323737.3.579.2 .593 1952 Unknown [id number] 2.16.840.1.175901.3.579.2 .727 1952 Unknown [id number] 2.16.840.1.941366.3.579.2 .727 1952 Unknown [id number] 2.16.840.1.029404.3.579.2 .72 1952 Unknown [id number] 2.16.840.1.920266.3.579.2 .1952 Unknown [id number] 2.16.840.1.677059.3.579.2 .1952 Unknown [id number] 2.16.840.1.527885.3.579.2 .1952 Unknown [id number] 2.16.840.1.082452.3.579.2 .1952 Unknown [id number] 2.16.840.1.364859.3.579.2 .1952 Unknown [id number] 2.840.1.062228.3.579.2 1952 Unknown [id number] 2.16.840.1.885187.3.579.2 .1952 Unknown [id number] 2.16.840.1.301109.3.579.2 .1952 Unknown [id number] 2.16.840.1.161058.3.579.2 .1952 Unknown [id number] 2.16840.1.878223.3.579.2 .1952 Unknown [id number] 2.16.840.1.262982.3.579.2 .72 1952 Unknown [id number] 2.16.840.1.350134.3.579.2 .1952 Unknown [id number] 2.16.840.1.838116.3.579.2 .173 1952 Unknown [id number] 2.16.840.1.195602.3.579.2 .173 1952 Unknown [id number] 2.16.840.1.534527.3.579.2 .173 1952 Unknown [id number] 2.16.840.1.416015.3.579.2 .9 1952 Unknown [id number] 2.16.840.1.336883.3.579.2 .1258 1952 Unknown [id number] 2.16.840.1.513370.3.579.2 .1258 1952 Unknown [id number] 2.16.840.1.233835.3.579.2 .1258 1952 Unknown [id number] 2.16.840.1.475059.3.579.2 .1258 1952 Unknown [id number] 2.16.840.1.125935.3.579.2 .1258 1952 Unknown [id number] 2.16.840.1.451123.3.579.2 .1258 1952 Unknown [id number] 2.16.840.1.415189.3.579.2 .1258 1952 Unknown [id number] 2.16.840.1.759731.3.579.2 .1258 1952 Unknown [id number] 2.16.840.1.350008.3.579.2 .1258 1952 Unknown [id number] 2.16.840.1.926722.3.579.2 .9 Medicare [id number] Social History Date Type Detail Facility Start: 10-18-2018 End: 12-06-2023 Tobacco smoking status NHIS Former smoker [place] Start: 08-31-1979 End: 06-06-2012 History of tobacco use Current smoker [place] Start: 10-18-2018 End: 07-25-2024 Cigarettes smoked current (pack per day) - Reported [facility] Start: 10-18-2018 End: 07-25-2024 Alcohol intake No [place] Start: 01-23-2014 End: 11-02-2023 [facility] Start: 1950 Sex Assigned At Not on file [facility] Start: 10-18-2018 End: 11-02-2023 Alcohol intake Current non-drinker of alcohol (finding) [facility] Start: 10-22-2020 End: 12-06-2023 Tobacco use and exposure Never used [facility] Start: 01-18-2022 End: 01-28-2022 Exposure to SARS-CoV-2 (event) Not sure [facility] Start: 08-31-1979 End: 06-06-2012 History of tobacco use Cigarette Smoker KITTY RICHIE [facility] [employer] Work Phone: Start: 05-17-2023 End: 07-25-2024 Alcohol [...] 05-21-2024 Functional Status N/A [facility] 12-05-2023 Functional Status N/A [facility] 06-20-2023 Functional Status N/A [facility] 11-05-2022 Functional Status N/A [facility] 06-18-2022 Functional Status N/A [facility] 05-17-2022 Functional Status N/A [facility] 02-01-2022 Functional Status N/A [facility] Clinical Notes 10-22-2020 to 07-25-2024 Jordan [...] Medicine) Jordan Duncan [facility] as Referring Physician (Orthopaedic Surgery) Brody Ibrahim DPM as Referring Physician (Podiatry) Anuja [...] Yes Vision Screening: Yes, patient sees 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 security director/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 Hearing Screening: Yes, concerned about hearing loss Cognitive Screening Self Assessment: No concerns rasied by family members, friends, or caretakers Three Word Registration: Zakiya Decker, Finger Clock Drawing: Normal Clock - 2 Three Word Recall: 2/3 words correct - 2 Total Score (0-5 Points): 4 Advance Care Planning Do you have a living will?: Yes Do you have a medical power of district attorney?: Yes Who is your medical power of district attorney?: Mary Yancey- Daughter Objective : BP 120/74 [...] Morbid (severe) obesity due to excess calories (CMS/HCC) Patient has lost some weight but with his comorbid conditions he still meets the criteria for morbid obesity. 6. BMI 39.0-39.9,adult Defines the morbid obesity 7. Type 2 diabetes mellitus with diabetic polyneuropathy, without long-term current use of insulin (CMS/HCC) Chronic problem, stable, monitored longitudinally. 8. Type 2 diabetes mellitus with diabetic microalbuminuria, without long-term current use of insulin (CMS/HCC) Chronic problem, stable, monitored longitudinally. 9. Type 2 diabetes mellitus with foot ulcer (CODE) ([facility]/HCC) Chronic problem, stable, monitored longitudinally. Primarily managed by Podiatry 10. Non-pressure chronic ulcer of other part of unspecified foot with unspecified severity (CMS/HCC) Chronic problem, stable, monitored longitudinally.Primarily managed by Podiatry 11. 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 Partial nontraumatic amputation of foot, left ([facility]/HCC) Chronic problem, stable, monitored longitudinally.Primarily managed by Podiatry 13. Atherosclerosis of [place] coronary artery of [place] heart without angina pectoris (CMS/HCC) Chronic problem, stable, monitored longitudinally. Comanaged with Cardiology 14. History of myocardial infarction ([facility]) Chronic problem, stable, monitored longitudinally.Comanaged with Cardiology 15. Mixed hyperlipidemia ([facility]) Chronic problem, stable, monitored longitudinally.Comanaged with Cardiology 16. Adverse reaction to statin medication Diagnosis for exclusion from the HEDIS measures for statin use. 17. 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 [facility] 07-05-2024 History of Present illness Narrative Pt [...] Denies any dizziness. documented in this encounter [facility] 06-18-2024 Telephone encounter Note Prescription sent [facility] 06-18-2024 Miscellaneous Notes Prescription sent Bret left a message requesting a refill on his Famotidine to [facility] in [place] documented in this encounter [facility] 06-18-2024 Telephone encounter Note Bret left a message requesting a refill on his Famotidine to [facility] in [place]. [facility] 06-08-2024 Note Application for [employer] filled out for patient. Requires patient signature. Will notify Cardiology customer support consultant to coordinate signature by patient. Application uploaded to media. Patient will come to Cardiology clinic to sign. Iron Sherwood PharmD Cardiology Outpatient Clinical Pharmacist 06/14/24 [facility] 06-08-2024 Note Contacted patient to discuss lipids management. Reviewed mechanism of action, side effects, and administration of Repatha with patient; pt agreeable to start. Will send RX to assess costs. Of note, pt may qualify for patient assistance [employer]. Will fill out paperwork and send to Cardiology to assist in obtaining signature and income documents. Iron Sherwood PharmD Cardiology Outpatient Clinical Pharmacist 06/11/24 [facility] 06-08-2024 Note [facility] ns[facility] - [...] Sherwood PharmD Cardiology Outpatient Clinical Pharmacist 06/11/24 [facility] 05-21-2024 Hospital Discharge instructions Patient Education 05/21/2024 [...] your health care provider. General instructions Take unsn-pul-mlfjxhe and prescription medicines only as told by [...] provider. Document Revised: 02/09/2021 Document Reviewed: 02/09/2021 [place] Patient Education 2023 [employer]. Follow Up Care 02/27/2024 09:12:26 With:KERI NOLASCO, Topher Ordoñez, URL Address: [facility] [address], [place] [address]- When: Unknown [facility] 05-21-2024 Evaluation + Plan note Diagnostic Tests PendingTestosterone Level Total 05/21/24CBC w/ Auto Diff 05/21/[address] [facility] 05-21-2024 Note Patient Education Obstetrics and Gynecology [...] health care provider. General instructions ??? Take pajp-znv-ybjkkfc and prescription medicines only as told by [...] drink, and whe (more content not included)... [facility] 05-15-2024 History of Present illness Narrative [...] 2010 BioGeraldo molina CATARACT EXTRACTION Left 2019 [facility] OTHER SURGICAL HISTORY 03/2017 lesions on bottom of both feet, [facility] OTHER SURGICAL HISTORY 4 stents Geraldo Stafford [...] Brody Ibrahim DPM documented in this encounter [facility] 05-15-2024 Instructions Brody Ibrahim DPM - 05/15/2024 10:15 AM EST As noted documented in this encounter [facility] 05-02-2024 Note Cardiovascular Medic [facility] SUBJECTIVE Chief Complaint Patient presents with Coronary [...] of colon cancer Testicular hypofunction 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 [facility] 05-02-2024 Note Patient here for 1 [...] All other systems reviewed and are negative. [facility] 04-23-2024 History of Present illness Narrative Images from the original note were not included. Subjective Patient ID: Juan Miguel Jennings is a 74 y.o. 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 [...] History: Procedure Laterality Date BACK SURGERY 2010 Juan Manuel Razao CATARACT EXTRACTION Left 2019 [facility] OTHER SURGICAL HISTORY 03/2017 lesions on bottom of both feet, [facility] OTHER SURGICAL HISTORY 4 stents KaJuan Manuel barajaso - 1997 OTHER SURGICAL HISTORY rectal cancer; [...] Brody Ibrahim DPM documented in this encounter [facility] 04-23-2024 Instructions Brody Ibrahim DPM - 04/23/2024 11:00 AM EST Instructions as noted documented in this encounter [facility] 04-09-2024 Telephone encounter Note Custom orthotics arrived droana Gruber [facility] 04-09-2024 Miscellaneous Notes Custom orthotics arrived drom Dr Gruber documented in this encounter [facility] 03-29-2024 History of Present illness Narrative Images [...] Procedure Laterality Date BACK SURGERY 2010 Bioni, Geraldo CATARACT EXTRACTION Left 2019 [facility] OTHER SURGICAL [...] Measurements obtained in the weight-bearing position utilizing [employer] device. Foam impressions obtained simulated weight-bearing. Patient [...] Brody Ibrahim DPM documented in this encounter [facility] 03-29-2024 Instructions Brody Ibrahim DPM - 03/29/2024 1:00 PM EDT As noted documented in this encounter [facility] 03-27-2024 History of Present illness Narrative Images [...] with Hgb A1C. Also this is a dutd-ad-haiv visit for consideration for diabetic shoes. Patient [...] polyneuropathy, without long-term current use of insulin ([facility]) (Primary) Chronic problem, stable, to goal. Patient has multiple podiatric issues. The forms from Podiatry were reviewed. Patient's feet were examined. I concur with the forms from Podiatry. Diabetic shoes are medically indicated. I certify that I had a icbz-ab-bqcq encounter with this patient at todays office visit. Due to this medical condition the patient requires DME. I certify that based on my findings The DME ordered is medically necessary for this patient. This has been discussed with the patient and/or their pharmaceutical specialty representative and mutually agreed upon. See the [...] 5. Partial nontraumatic amputation of right foot ([facility]) Comorbid condition currently being managed by Podiatry 6. Partial nontraumatic amputation of foot, left ([facility]) Comorbid condition currently being managed by Podiatry 7. Venous stasis dermatitis of both lower extremities Chronic problem, stable. Does not appear to be progressing significantly. Discussed the importance of keeping the area moisturized. 8. Type 2 diabetes mellitus with diabetic microalbuminuria, without long-term current use of insulin ([facility]) Chronic problem, stable, to goal. 9. [...] stratification for cardiovascular disease. 10. Essential hypertension ([facility]) In prescribing a renewal to their [...] changes as able documented in this encounter [facility] 03-13-2024 History of Present illness Narrative Images [...] [place] OTHER SURGICAL HISTORY 4 stents Kabor, Peguero - 1997 OTHER SURGICAL HISTORY rectal [...] Brody Ibrahim DPM documented in this encounter [facility] 03-13-2024 Instructions Brody Ibrahim DPM - 03/13/2024 9:45 AM EDT As noted documented in this encounter [facility] 12-05-2023 Hospital Discharge instructions Patient Education 12/05/2023 [...] therapy. Follow these instructions at home: Take iqwo-ptx-hsnaahe and prescription medicines only as told by [...] provider. Document Revised: 01/22/2021 Document Reviewed: 01/22/2021 [place] Patient Education 2022 [employer]. Follow Up Care 12/05/2023 07:35:26 With:KERI NOLASCO, Topher Ordoñez, URL Address: [facility] [address] [place] [phone] When: Unknown [facility] [place] 12-05-2023 Note Patient Education Urology Hypogonadism, [...] Follow these instructions at home: ? Take yzth-ssz-zrqwkdx and prescription medicines only as told by [...] provider. Document Revised: (more content not included)... [facility] 11-07-2023 Hospital Discharge instructions Follow Up Care 11/07/2023 08:41:09 With:KERI NOLASCO, Topher Ordoñez, URL Address: [facility] [address] , [place] [phone] When: Unknown [facility] 07-19-2023 History of Present illness Narrative Images from the original note were not included. Subjective Patient ID: Juan Miguel Jennings is a 73 y.o. male who presents for Nail care (Juan Miguel Jennings is a 73 y.o. male who presents for Nail care and discuss inserts. Pt relates recently saw Dr Hagrrove right foot ulcer, which has improved. Dr. [...] May 2023; effectively healed following treatment at [facility] wound Center. Currently relates no bleeding [...] OTHER SURGICAL HISTORY 09/30/2022 Dorsal Natasha, Saavedra, RADHA TOTAL KNEE ARTHROPLASTY Right 2014 Alexsander [...] with wound right foot; effectively managed at [facility] wound care center. Care plan: [...] Brody Ibrahim DPM documented in this encounter [facility] 07-19-2023 Instructions Brody Ibrahim DPM - 07/19/2023 10:30 AM EST As noted documented in this encounter [facility] 06-20-2023 Hospital Discharge instructions Patient Education 06/20/2023 [...] therapy. Follow these instructions at home: Take vfar-wtn-yvieefv and prescription medicines only as told by [...] provider. Document Revised: 01/22/2021 Document Reviewed: 01/22/2021 [place] Patient Education 2022 [employer]. Follow Up Care 02/08/2023 12:23:35 With:KERI NOLASCO, Topher Ordoñez, URL Address: [facility] [address] , [place] [phone] When: Unknown Comments:6 mos w/ PSA and T level (pt to also get PSA now) [facility] 11-05-2022 Hospital Discharge instructions Patient Education [...] urethra. Follow these instructions at home: Take muzd-xae-cntecek and prescription medicines only as told by [...] provider. Document Revised: 12/09/2021 Document Reviewed: 12/09/2021 [place] Patient Education 2022 [employer]. Follow Up Care 05/17/2022 10:46:35 With:KERI NOLASCO, Topher Ordoñez, URL Address: [facility] [address] , [place] [address]- When: Unknown [facility] 11-03-2022 History of Present illness Narrative [...] see for visit documented in this encounter [facility] Work Phone: 09-15-2022 Note EXAM: XR CHEST 2 V HISTORY: Pre-surgery evaluation COMPARISON: None. TECHNIQUE: PA and lateral views of the chest. FINDINGS: The cardiomediastinal silhouette is normal. No focal consolidation is identified. There is no pneumothorax. No pleural effusion is noted. The osseous structures are intact. IMPRESSION: No acute cardiopulmonary process. Electronically authenticated by: DARRIUS BOLTON Date: 2022-09-15 12:26 [facility] 06-18-2022 Hospital Discharge instructions Patient Education [...] urethra. Follow these instructions at home: Take fkqt-tdo-vjvkdcs and prescription medicines only as told by [...] 05/23/2006 Document Revised: 04/17/2019 Document Reviewed: 06/27/2017 [place] Patient Education 2020 [employer]. Follow Up Care 06/14/2022 09:33:13 With:KERI NOLASCO, Topher Ordoñez, URL Address: [address] [place], [place] [phone]- When: Unknown [facility] 05-17-2022 Hospital Discharge instructions Patient Education [...] urethra. Follow these instructions at home: Take jkoe-gvp-csnkxjz and prescription medicines only as told by [...] 05/23/2006 Document Revised: 04/17/2019 Document Reviewed: 06/27/2017 [place] Patient Education 2019 [employer]. Follow Up Care 04/21/2022 09:42:50 With:KERI NOLASCO, Topher Ordoñez, URL Address: [facility] [address], [place] [address]- When: Unknown [facility] 03-23-2022 Note PROCEDURE: XR FOOT R [...] authenticated by: BRODY PAYAN Date: 2022-03-23 06:26 [facility] 02-01-2022 Hospital Discharge instructions Patient Education [...] urethra. Follow these instructions at home: Take cnvq-uig-gmlwbnx and prescription medicines only as told by [...] 05/23/2006 Document Revised: 04/17/2019 Document Reviewed: 06/27/2017 [place] Patient Education 2020 [employer]. Follow Up Care 08/03/2021 15:20:11 With:KERI NOLASCO, Topher Ordoñez, URL Address: [address] [place] [address]- When: Unknown [facility] 10-22-2020 History of Present illness Narrative [...] ambulating without complaints documented in this encounter [facility] Phone: Evaluation + Plan note Future Appointments Appointment Date:09/28/2021 09:00:00 AM Scheduled Provider: Location:[facility] Appointment Type:URO Nurse Visit Appointment Date:02/01/2022 09:45:00 AM Scheduled Provider:Topher SAAVEDRA MD Location:[facility] Appointment Type:URO Office Visit [facility] Evaluation + Plan note Future Appointments Appointment Date:10/26/2021 09:00:00 AM Scheduled Provider: Location:[facility] Appointment Type:URO Nurse Visit Appointment Date:02/01/2022 09:45:00 AM Scheduled Provider:Topher SAAVEDRA MD Location:[facility] Appointment Type:URO Office Visit [facility] Evaluation + Plan note Future Appointments Appointment Date:11/23/2021 09:00:00 AM Scheduled Provider: Location:[facility] Appointment Type:URO Nurse Visit Appointment Date:02/01/2022 09:45:00 AM Scheduled Provider:Topher SAAVEDRA MD Location:[facility] Appointment Type:URO Office Visit [facility] Evaluation + Plan note Future Appointments Appointment Date:12/21/2021 09:00:00 AM Scheduled Provider: Location:[facility] Appointment Type:URO Nurse Visit Appointment Date:02/01/2022 09:45:00 AM Scheduled Provider:Topher SAAVEDRA MD Location:[facility] Appointment Type:URO Office Visit [facility] Evaluation + Plan note Future Appointments Appointment Date:02/01/2022 09:45:00 AM Scheduled Provider:Topher SAAVEDRA MD Location:[facility] Appointment Type:URO Office Visit Diagnostic Tests PendingTestosterone Level Total 12/21/21 [facility] Evaluation + Plan note Future Appointments Appointment Date:03/01/2022 09:30:00 AM Scheduled Provider: Location:[facility] Appointment Type:URO Nurse Visit Diagnostic Tests PendingTestosterone Level Total 04/06/22PSA Total 03/06/22 [facility] Evaluation + Plan note Future Appointments Appointment Date:03/31/2022 08:15:00 AM Scheduled Provider: Location:[facility] Appointment Type:URO Nurse Visit [facility] Evaluation + Plan note Future Appointments Appointment Date:04/21/2022 09:15:00 AM Scheduled Provider: Location:[facility] Appointment Type:URO Nurse Visit [facility] Evaluation + Plan note Future Appointments Appointment Date:05/19/2022 08:00:00 AM Scheduled Provider:Mandy Schaefer MD Location:[facility] Appointment Type:URO Office Visit Diagnostic Tests PendingPSA Total 04/16/22Testosterone Level Total 04/16/[address] [facility] Evaluation + Plan note Future Appointments Appointment Date:06/14/2022 09:00:00 AM Scheduled Provider: Location:[facility] Appointment Type:URO Nurse Visit Appointment Date:11/15/2022 08:45:00 AM Scheduled Provider:Topher SAAVEDRA MD Location:[facility] Appointment Type:URO Office Visit Diagnostic Tests PendingPSA Total 05/17/22Testosterone Level Total 05/17/[address] [facility] Evaluation + Plan note Future Appointments Appointment Date:09/06/2022 09:00:00 AM Scheduled Provider: Location[facility] Appointment Type:URO Nurse Visit Appointment Date:11/15/2022 08:45:00 AM Scheduled Provider:Topher SAAVEDRA MD Location:[facility] Appointment Type:URO Office Visit [facility] Evaluation + Plan note Future Appointments Appointment Date:10/05/2022 09:00:00 AM Scheduled Provider: [facility] Appointment Type:URO Nurse Visit Appointment Date:10/29/2022 08:45:00 AM Scheduled Provider:Topher SAAVEDRA MD Location:[facility] Appointment Type:URO Office Visit Appointment Date:11/05/2022 09:45:00 AM Scheduled Provider:Topher SAAVEDRA MD Location:[facility] Appointment Type:URO Office Visit [facility] Evaluation + Plan note Future Appointments Appointment Date:11/05/2022 09:45:00 AM Scheduled Provider:Topher SAAVEDRA MD Location:[facility] Appointment Type:URO Office Visit [facility] Evaluation + Plan note Future Appointments Appointment Date:12/03/2022 09:15:00 AM Scheduled Provider: Location:[facility] Appointment Type:URO Nurse Visit Diagnostic Tests PendingTestosterone Level Total 11/05/22PSA Total 11/05/[address] [facility] Evaluation + Plan note Future Appointments Appointment Date:01/03/2023 08:15:00 AM Scheduled Provider: Location:[facility] Appointment Type:URO Nurse Visit [facility] Evaluation + Plan note Future Appointments Appointment Date:01/31/2023 08:45:00 AM Scheduled Provider: Location:[facility] Appointment Type:URO Nurse Visit [facility] Evaluation + Plan note Future Appointments Appointment Date:03/07/2023 08:45:00 AM Scheduled Provider: Location:[facility] [place] Appointment Type:URO Nurse Visit Appointment Date:04/04/2023 08:45:00 AM Scheduled Provider: Location:[facility] [place] Appointment Type:URO Nurse Visit Appointment Date:05/02/2023 08:45:00 AM Scheduled Provider: Location:[facility] [place] Appointment Type:URO Nurse Visit Appointment Date:05/27/2023 09:45:00 AM Scheduled Provider:Topher SAAVEDRA MD Location:[facility] [place] Appointment Type:URO Office Visit [facility] Evaluation + Plan note Future Appointments Appointment Date:05/02/2023 08:45:00 AM Scheduled Provider: Location:[facility] Appointment Type:URO Nurse Visit Appointment Date:06/20/2023 10:30:00 AM Scheduled Provider:Topher SAAVEDRA MD Location:[facility] Appointment Type:URO Office Visit [facility] Evaluation + Plan note Future Appointments Appointment Date:06/20/2023 10:30:00 AM Scheduled Provider:Topher SAAVEDRA MD Location:[facility] Appointment Type:URO Office Visit Diagnostic Tests PendingTestosterone Level Total 05/09/[address] [facility] Evaluation + Plan note Future Appointments Appointment Date:07/18/2023 09:30:00 AM Scheduled Provider: Location:[facility] Appointment Type:URO Nurse Visit Diagnostic Tests PendingPSA Total 06/20/23Testosterone Level Total 06/20/[address] [facility] Evaluation + Plan note Future Appointments Appointment Date:08/15/2023 10:00:00 AM Scheduled Provider: Location:[facility] Appointment Type:URO Nurse Visit [facility] Evaluation + Plan note Future Appointments Appointment Date:09/09/2023 08:30:00 AM Scheduled Provider: Location:[facility] Appointment Type:URO Nurse Visit [facility] Evaluation + Plan note Future Appointments Appointment Date:10/07/2023 08:30:00 AM Scheduled Provider: Location:[facility] Appointment Type:URO Nurse Visit [facility] Evaluation + Plan note Future Appointments Appointment Date:11/07/2023 09:00:00 AM Scheduled Provider: Location:[facility] Appointment Type:URO Nurse Visit [facility] Evaluation + Plan note Future Appointments Appointment Date:12/05/2023 10:45:00 AM Scheduled Provider:Topher SAAVEDRA MD Location:[facility] Appointment Type:URO Office Visit [facility] Evaluation + Plan note Future Appointments Appointment Date:01/02/2024 09:00:00 AM Scheduled Provider: Location:[facility] Appointment Type:URO Nurse Visit Diagnostic Tests PendingTestosterone Level Total 12/05/23emoglobin 12/05/23 [facility] Evaluation + Plan note Future Appointments Appointment Date:01/02/2024 09:00:00 AM Scheduled Provider: Location:[facility] Appointment Type:URO Nurse Visit [facility] Evaluation + Plan note Future Appointments Appointment Date:02/27/2024 09:00:00 AM Scheduled Provider: Location:[facility] Appointment Type:URO Nurse Visit [facility] Evaluation + Plan note Future Appointments Appointment Date:03/27/2024 09:00:00 AM Scheduled Provider: Location:[facility] Appointment Type:URO Nurse Visit Appointment Date:04/23/2024 09:30:00 AM Scheduled Provider: [facility] Appointment Type:URO Nurse Visit Appointment Date:05/21/2024 10:45:00 AM Scheduled Provider:Topher SAAVEDRA MD [facility] Appointment Type:URO Office Visit [facility] Evaluation + Plan note Future Appointments Appointment Date:04/23/2024 09:30:00 AM Scheduled Provider: [facility] Appointment Type:URO Nurse Visit Appointment Date:05/21/2024 10:45:00 AM Scheduled Provider:Topher SAAVEDRA MD [facility] Appointment Type:URO Office Visit [facility] Evaluation + Plan note Future Appointments Appointment Date:05/08/2024 09:00:00 AM Scheduled Provider: Location:[facility] Appointment Type:URO Nurse Visit Appointment Date:05/21/2024 10:45:00 AM Scheduled Provider:Topher SAAVEDRA MD Location:[facility] Appointment Type:URO Office Visit [facility] Evaluation note Diagnosis Polycythemia- Primary Polycythemia vera documented in this encounter [facility] Phone: evalleoqrz note* Diagnosis Polycythemia- Primary Polycythemia vera documented in this encounter [facility] Phone: evaluation note* Diagnosis Dermatophytosis of nail- Primary Dystrophic nail Other specified disease of nail Diabetic polyneuropathy associated with type 2 diabetes mellitus ([facility]) Nontraumatic amputation of foot, right ([facility]) Nontraumatic amputation of foot, left ([facility]) Acquired keratoderma documented in this encounter [facility] HealthcareEvaluation note* Diagnosis Acquired keratoderma- Primary Diabetic polyneuropathy associated with type 2 diabetes mellitus ([facility]) Nontraumatic amputation of foot, left ([facility]) Nontraumatic amputation of foot, right ([facility]) documented in this encounter [facility] HealthcareEvaluation note* Diagnosis Type 2 diabetes mellitus with diabetic polyneuropathy, without long-term current use of insulin ([facility])- Primary Acquired hallux malleus of left foot Acquired hammer toes of both feet Foot callus Corns and callosities Partial nontraumatic amputation of right foot ([facility]) Partial nontraumatic amputation of foot, left ([facility]) Venous stasis dermatitis of both lower extremities Type 2 diabetes mellitus with diabetic microalbuminuria, without long-term current use of insulin ([facility]) Microalbuminuria Proteinuria Essential hypertension ([facility]) Unspecified essential hypertension Mixed hyperlipidemia ([facility]) Mixed hyperlipidemia Adverse reaction to statin medication Former smoker Personal history of tobacco use, presenting hazards to health Morbid obesity ([facility]) Morbid obesity documented in this encounter [facility] HealthcareEvaluation note* Diagnosis Diabetic polyneuropathy associated with type 2 diabetes mellitus (CMS/HCC)- Primary Nontraumatic amputation of foot, left (CMS/HCC) Nontraumatic amputation of foot, right (CMS/HCC) documented in this encounter [facility] HealthcareEvaluation note* Diagnosis Diabetic polyneuropathy associated with type 2 diabetes mellitus (CMS/HCC)- Primary Nontraumatic amputation of foot, left (CMS/HCC) Nontraumatic amputation of foot, right (CMS/HCC) documented in this encounter [facility] HealthcareEvaluation note* Diagnosis Dyspepsia Dyspepsia and other specified disorders of function of stomach documented in this encounter [facility] HealthcareEvaluation note* Diagnosis Polycythemia- Primary Polycythemia vera [facility] Diagnosis Encounter for Medicare annual wellness exam- Primary Advance directive in chart Encounter for screening for other disorder Screening for alcohol problem Screening for alcoholism Morbid (severe) obesity due to excess calories (CMS/HCC) BMI 39.0-39.9,adult Type 2 diabetes mellitus with diabetic polyneuropathy, without long-term current use of insulin ([facility]) Type 2 diabetes mellitus with diabetic microalbuminuria, without long-term current use of insulin ([facility]/HCC) Type 2 diabetes mellitus with foot ulcer (CODE) ([facility]) Non-pressure chronic ulcer of other part of unspecified foot with unspecified severity (CMS/HCC) 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, left (CMS/HCC) Atherosclerosis of [place] coronary artery of [place] heart without angina pectoris (CMS/HCC) History of myocardial infarction (CMS/HCC) Mixed hyperlipidemia (CMS/HCC) Mixed hyperlipidemia Adverse reaction to statin medication Primary open angle glaucoma of both eyes, unspecified glaucoma stage (CMS/HCC) documented in this encounter [facility] HealthcareEvaluation note* Diagnosis Dyspepsia Dyspepsia and other specified disorders of function of stomach Essential hypertension (CMS/HCC) Unspecified essential hypertension Microalbuminuria Proteinuria Mixed hyperlipidemia (CMS/HCC) Mixed hyperlipidemia Type 2 diabetes mellitus with diabetic microalbuminuria, without long-term current use of insulin (CMS/HCC) Type 2 diabetes mellitus with diabetic polyneuropathy, without long-term current use of insulin (CMS/HCC) documented in this encounter [facility] HealthcareHospital course Narrative No data available for this section [facility] Hospital Discharge instructions No data available for this section [facility] progress note No data available for this section [facility] Summary Purpose Family History No Family [...] Documents on File Type Date Recorded Patient Assistant Guest Services Manager Expl anation Advance Directives and Livin g Will Advance Directives and Livin g Will 08/31/2013 9:46 AM Power of Protective Signal Installer Helper Power of Protective Signal Installer Helper 08/31/2013 9:46 AM Latest Code Status on File Code Status Date Activated Date Inactivated Comments Full Code 08/06/2016 9:06 AM 08/09/2016 5:53 PM Full Code 08/04/2016 9:28 PM 08/06/2016 9:06 AM Full Code 05/15/2015 12:42 PM 05/19/2015 6:52 PM Full Code 05/12/2015 11:22 AM 05/15/2015 12:42 PM Full Code 05/13/2014 2:36 PM 05/13/2014 9:20 PM Documents on File Type Date Recorded Patient Assistant Guest Services Manager Expl anation ACP-Advance Directive ACP-Power of Protective Signal Installer Helper ACP-Advance Directive 08/31/2013 9:46 AM ACP-Power of Protective Signal Installer Helper 08/31/2013 9:46 AM Documents on File Type Date Recorded Patient Assistant Guest Services Manager Expl anation ACP-Advance Directive 08/31/2013 9:46 AM ACP-Power of Protective Signal Installer Helper 08/31/2013 9:46 AM Latest Code Status on [...] Documents on File Type Date Recorded Patient Assistant Guest Services Manager Expl anation Advance Directives and Living Will 11/20/2019 2018-05-09 Living Wi ll Advance Directives and Living Will 11/20/2019 2018-05-09 Power Of Protective Signal Installer Helper Documents on File Type Date Recorded Patient Assistant Guest Services Manager Expl anation ACP-Power of Protective Signal Installer Helper 08/31/2013 9:46 AM ACP-Advance Directive 08/31/2013 9:46 [...] section and content) DATE CREATED AUTHOR 11/24/2017 [facility] DATE CREATED AUTHOR AUTHOR'S ORGANIZ ATION 03/15/2018 [facility] DATE CREATED AUTHOR AUTHOR'S ORGANIZ ATION 07/01/2021 [facility] DATE CREATED AUTHOR AUTHOR'S ORGANIZ ATION 09/26/2021 [facility] DATE CREATED AUTHOR AUTHOR'S ORGANIZ ATION 11/13/2022 [facility] DATE CREATED AUTHOR AUTHOR'S ORGANIZ ATION 06/03/2024 [facility] DATE CREATED AUTHOR AUTHOR'S ORGANIZ ATION 06/24/2024 [facility] DATE CREATED AUTHOR AUTHOR'S ORGANIZ ATION 07/07/2024 [facility] DATE CREATED AUTHOR AUTHOR'S ORGANIZ ATION 07/17/2024 [facility] DATE CREATED AUTHOR AUTHOR'S ORGANIZ ATION 07/27/2024 [facility] EPIC DATE CREATED AUTHOR AUTHOR'S ORGANIZ ATION 09/14/2024 [facility] (unrecognized sect ion and content) Aws Developer Relationship Specialty Start Date End Date Jordan Duncan MD PCP - General 07/25/19 Aws Developer Relationship Specialty Start Date End Date Jordan Duncan MD [address] [place] [address] PCP - General Family Medicine 10/25/22 Mitch Mello MD [address] [place] [address] Referring Physician Cardiology 05/17/23 Jr. Anuja Henson DO 112 [facility] 150 [place] [address] Referring Physician Orthopaedic Surgery 05/17/23 Brody Ibrahim DPM [address] [place] [address] Referring Physician Podiatry 05/17/23 Aws Developer Relationship Specialty Start Date End Date Jordan Duncan MD [address] [place] [address] (Fax) PCP - General Family Medicine 10/25/22 Mitch Mello MD [address] [place] [address] Referring Physician Cardiology 05/17/23 Jr. Anuja Henson DO [address] [address] Referring Physician Orthopaedic Surgery 05/17/23 Brody Ibrahim DPM [address] [place] [address] Referring Physician Podiatry 05/17/23 Aws Developer Relationship Specialty Start Date End Date Jordan Duncan MD [address] [place] [address] (Fax) PCP - General Family Medicine 10/25/22 Jordan Duncan MD [address] [place] [address] (Fax) PCP - ACO Reach 08/05/23 Mitch Mello MD [address] [place], [place] [phone] Referring Physician Cardiology 05/17/23 Jr. Anuja Henson DO [address] [address] Referring Physician Orthopaedic Surgery 05/17/23 Brody Ibrahim DPM [address] [facility] [place] [address] Referring Physician Podiatry 05/17/23 Aws Developer Relationship Specialty Start Date End Date Jordan Duncan MD [address] [place] [address] PCP - General Family Medicine 10/25/22 Jordan Duncan MD [address] [place] [address] PCP - ACO Reach 08/05/23 Mitch Mello MD [address] [place] [address] Referring Physician Cardiology 05/17/23 Jr. Anuja Henson DO [address] [address] Referring Physician Orthopaedic Surgery 05/17/23 Brody Ibrahim DPM [address] [facility] [place] [address] Referring Physician Podiatry 05/17/23 Aws Developer Relationship Specialty Start Date End Date Jordan Duncan MD [address] [place] [address] (Fax) PCP - General Family Medicine 10/25/22 Jordan Duncan MD [address] [place] [address] (Fax) PCP - ACO Reach 08/05/23 Mitch Mello MD [address] [place] [address] Referring Physician Cardiology 05/17/23 Jr. Anuja Henson DO [address] [address] Referring Physician Orthopaedic Surgery 05/17/23 Brody Ibrahim DPM [facility] [place] [address] Referring Physician Podiatry 05/17/23 Aws Developer Relationship Specialty Start Date End Date Jordan Duncan MD [address] [place] [address] (Fax) PCP - General Family Medicine 10/25/22 Jordan Duncan MD [address] [place] [address] (Fax) PCP - ACO Reach 08/05/23 Mitch Mello MD [address] [place] [address] Referring Physician Cardiology 05/17/23 Jr. Anuja Henson DO [address] [address] Referring Physician Orthopaedic Surgery 05/17/23 Brody Ibrahim DPM [address] [place] [address] Referring Physician Podiatry 05/17/23 Aws Developer Relationship Specialty Start Date End Date Jordan Duncan MD [address] [place] [address] (Fax) PCP - General Family Medicine 10/25/22 Jordan Duncan MD [address] [place] [address] (Fax) PCP - ACO Reach 08/05/23 Mitch Mello MD [address] [place] [address] Referring Physician Cardiology 05/17/23 Jr. Anuja Henson DO [address] [address] Referring Physician Orthopaedic Surgery 05/17/23 Brody Ibrahim DPM [address] [place] [address] Referring Physician Podiatry 05/17/23 Aws Developer Relationship Specialty Start Date End Date Jordan Duncan MD [address] [place] [address] (Fax) PCP - General Family Medicine 10/25/22 Jordan Duncan MD [address] [facility] 100 [place] [address] (Fax) PCP - ACO Reach 08/05/23 Mitch Mello MD [address] [place] [address] Referring Physician Cardiology 05/17/23 Jr. Anuja Henson DO [address] [place] [address] Referring Physician Orthopaedic Surgery 05/17/23 Brody Ibrahim DPM [address] [place] [address] Referring Physician Podiatry 05/17/23 Aws Developer Relationship Specialty Start Date End Date Jordan Duncan MD [address] [place] [address] (Fax) PCP - General Family Medicine 10/25/22 Jordan Duncan MD [address] [place] [address] (Fax) PCP - ACO Reach 08/05/23 Mitch Mello MD [address] [place] [address] Referring Physician Cardiology 05/17/23 Jr. Anuja Henson DO [address] [place] [address] [place] [address] Referring Physician Orthopaedic Surgery 05/17/23 Brody Ibrahim DPM [address] [facility] [place] [address] Referring Physician Podiatry 05/17/23 Aws Developer Relationship Specialty Start Date End Date Jordan Duncan MD [address] [place] [address] (Fax) PCP - General Family Medicine 10/25/22 Jordan Duncan MD [address] [facility] 100 [place] [address] (Fax) PCP - ACO Reach 08/05/23 Mitch Mello MD [address] [place] [phone] Referring Physician Cardiology 05/17/23 Jr. Anuja Henson DO 112 [facility] 150 [place] [address] Referring Physician Orthopaedic Surgery 05/17/23 Brody Ibrahim DPM [address] [place] [address] Referring Physician Podiatry 05/17/23 Aws Developer Relationship Specialty Start Date End Date Jordan Duncan MD [address] [address] (Fax) PCP - General Family Medicine 10/25/22 Jordan Duncan MD 112 [facility] 100 [place] [address] (Fax) PCP - ACO Reach 08/05/23 Mitch Mello MD [address] [place] [address] Referring Physician Cardiology 05/17/23 Jr. Anuja Henson DO 112 [facility] 150 [place] [address] Referring Physician Orthopaedic Surgery 05/17/23 Brody Ibrahim DPM [address] [place] [address] Referring Physician Podiatry 05/17/23 Aws Developer Relationship Specialty Start Date End Date Jordan Duncan MD [address] [place] [address] (Fax) PCP - General Family Medicine 10/25/22 Jordan Duncan MD [address] [place] [address] (Fax) PCP - ACO Reach 08/05/23 Mitch Mello MD [address] [place] [address] Referring Physician Cardiology 05/17/23 Jr. Anuja Henson DO [address] [place] [address] Referring Physician Orthopaedic Surgery 05/17/23 Brody Ibrahim DPM [address] [place] [address] Referring Physician Podiatry 05/17/23 Aws Developer Relationship Specialty Start Date End Date Jordan Duncan MD [address] [place] [address] (Fax) PCP - General Family Medicine 10/25/22 Jordan Duncan MD [address] [place] [address] (Fax) PCP - ACO Reach 08/05/23 Mitch Mello MD [address] [place] [address] Referring Physician Cardiology 05/17/23 Jr. Anuja Henson DO [address] [place] [address] Referring Physician Orthopaedic Surgery 05/17/23 Brody Ibrahim DPM [address] [facility] [place] [address] Referring Physician Podiatry 05/17/23 Aws Developer Relationship Specialty Start Date End Date Jordan Duncan MD PCP - General 07/25/19 Aws Developer Relationship Specialty Start Date End Date Jordan Duncan MD [address] [place] [address] PCP - General Family Medicine 10/25/22 Jordan Duncan MD [address] [place] [address] PCP - ACO Reach 08/05/23 Mitch Mello MD [address] [place] [address] Referring Physician Cardiology 05/17/23 Jr. Anuja Henson DO [address] [facility] [address] [place] [address] Referring Physician Orthopaedic Surgery 05/17/23 Brody Ibrahim DPM [address] [place] [address] Referring Physician Podiatry 05/17/23 Aws Developer Relationship Specialty Start Date End Date Jordan Duncan MD [address] [place] [address] (Fax) PCP - General Family Medicine 10/25/22 Jordan Duncan MD [address] [place] [address] (Fax) PCP - ACO Reach 08/05/23 Jr. Anuja Henson DO [address] [place] [address] Referring Physician Orthopaedic Surgery 05/17/23 Brody Ibrahim DPM [address] [facility] [place] [address] Referring Physician Podiatry 05/17/23 Anuja Huddleston MD [address] [place] [address] Referring Physician Family Medicine 07/25/24 Topher Saavedra MD [address] [place] [phone] Referring Physician Urology 07/25/24 Kitty Edmond OD [address] [facility] [place] [address] Referring Physician Optometry 07/25/24 Aws Developer Relationship Specialty Start Date End Date Jordan Duncan MD [address] [place] [address] (Fax) PCP - General Family Medicine 10/25/22 Jordan Duncan MD [address] [place] [address] (Fax) PCP - ACO Reach 08/05/23 Jr. Anuja Henson DO [address] [place] [address] Referring Physician Orthopaedic Surgery 05/17/23 Brody Ibrahim DPM [address] [facility] [address] Referring Physician Podiatry 05/17/23 [place] [address] [place] [phone] Referring Physician Family Medicine 07/25/24 Topher Saavedra MD [address] [place] [address] Referring Physician Urology 07/25/24 Kitty Edmond OD [facility] [place] [address] Referring Physician Optometry 07/25/24 Aws Developer Relationship Specialty Start Date End Date Jordan Duncan MD [address] [place] [address] (Fax) PCP - General Family Medicine 10/25/22 Jordan Duncan MD [address] [place] [address] (Fax) PCP - ACO Reach 08/05/23 Jr. 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 PCP: Dr. Dakota YARBROUGH 03/27/24, A1C: 6.4 (10/04), BS: 132 SS: 14. Reason Comments Diabetic shoe check Juan Miguel Jennings is a 74 y.o. male who presents diabetic shoe check. PCP: Dr. Dakota YARBROUGH 03/27/24, A1C: 6.4 (10/04), BS: 132 SS: 14. Reason Comments Annual Exam Reason Comments Med Refill FOR RECORDS PERTAINING TO PATIENTS WHO ARE [...] BE BASED ON THE PRIMARY CLINICAL RECORDS. [employer] [facility]. provides no warranty or guarantee of the accuracy or completeness of information in this document.
== END 2024-09-19 09:20 | disposition home or self-care (01) ==
LOC: WC 09:19
PROVIDERS: PCP Family Medicine; Visit Provider Physician Assistant
DX: E11.621 Type 2 diabetes mellitus with foot ulcer (principal); L97.422 Non-pressure chronic ulcer of left heel and midfoot with fat layer exposed; L84 Corns and callosities; E11.40 Type 2 diabetes mellitus with diabetic neuropathy, unspecified
CPT/HCPCS: 11043; 11056

== ENCOUNTER 2024-10-03 09:33 | Outpatient (OUT) | payer MEDICARE, SELFPAY | END 2024-10-03 09:34 | disposition home or self-care (01) | LOC: WC 09:33 | PROVIDERS: PCP Family Medicine; Visit Provider Physician Assistant | DX: L84 Corns and callosities (principal); E11.40 Type 2 diabetes mellitus with diabetic neuropathy, unspecified | CPT/HCPCS: 11056 ==

== ENCOUNTER 2024-10-31 09:32 | Outpatient (OUT) | payer MEDICARE, SELFPAY ==
--- OUTSIDE RECORDS SUMMARY | 2010-08-31 06:30 | XMS_ITS | Encounter Summary ---
Author Organization [facility] Address [address] [place] [address] Care Team Providers Care Second Floor Operator Name Role Phone Unavailable Primary Care Provider Unavailabl e Encounter Details Date Type Department Care Team (Late Contact Info) Description 08/31/2010 6:30 AM EDT Hospital Encounter [facility] Department [address] [address] Altaf Velázquez MD [address] [place] [address] Social History Tobacco Use Types Packs/Day [...] Info) Description 02/22/2025 1:00 PM EDT Appointment [facility] MED [facility]C [address] [place] [address] phlebotomy documented as of this encounter Visit Diagnoses Not on filedocumented in this encounter
--- OUTSIDE RECORDS SUMMARY | 2013-08-17 02:10 | XMS_ITS | Encounter Summary ---
Author Organization [facility] Address [address] [place] [address] Care Team Providers Care Hospice Clinical Supervisor Name Role Phone Diego Bartlett MD Primary Care Provider Unavaildon e Encounter Details Date Type Department Care Team (Late st Contact Info) Description 08/17/2013 2:10 AM EDT Hospital Encounter MTH PRE ADMIT [address] [phone] Peewee Westfall, DPM [address] [place] [address] Social History Tobacco Use Types Packs/Day Years [...] Info) Description 02/22/2025 1:00 PM EDT Appointment [facility] [address] [place] [address] [phone] phlebotomy documented as of this encounter Procedures [...] [facility] Ventricular Rate 57 BPM [facility] RAD[facility]OLOGY Atrial Rate 57 BPM [facility] P-R Interval 174 ms [facility] QRS Duration 86 ms [facility] Q-T Interval 406 ms [facility] RADI[facility] QTc Calculation (Bazett) 395 ms [facility] RADI[facility] P Downs 64 degrees [facility] R Downs 26 degrees [facility] T Downs 46 degrees [facility] 08/17/2013 8:50 AM EDT Narrative [facility] - 08/17/2013 6:59 PM EDT Sinus bradycardiaOtherwise normal ECGWhen compared with ECG of 05-OCT-2010 08:57,No significant change was found Procedure Note 08/17/2013 Sinus bradycardiaOtherwise normal ECGWhen compared with ECG of [id number],No significant change was found Peewee Westfall DPM ECG ORDERABLES Final Result [facility] * XR Chest Standard TWO VW (08/17/2013 8:50 AM EDT) Anatomical Region Laterality Modality Chest Radiographic Lynn ging 08/17/2013 8:50 AM EDT Narrative 08/17/2013 4:48 PM EDT FINAL Procedure: TRT Aug 17 2013 8:50AM [id number] CHEST PA AND LATERAL Reason for Exam: [...] Fish MD IMPRESSION: SEE ABOVE. Transcribed by: [facility] on Aug 17 2013 4:48P Read by: CHAPIN BAUTISTA M.D. [id number] on Aug 17 2013 11:15A Electronically Signed by: DR. CHAPIN BAUTISTA M.D. on: Aug 17 2013 4:48P Procedure Note Chapin Bautista MD - 08/17/2013 FINAL Procedure: TRT Aug 17 2013 8:50AM [id number] CHEST PA AND LATERAL Reason for Exam: [...] Fish MD IMPRESSION: SEE ABOVE. Transcribed by: [facility] on Aug 17 2013 4:48P Read by: CHAPIN BAUTISTA M.D. [id number] on Aug 17 2013 11:15A Electronically Signed by: DR. CHAPIN BAUTISTA M.D. on: Aug 17 2013 4:48P us Peewee Westfall DPM IMG DIAGNOSTIC IMAGING ORDERA BLES Edited Result - Final * (ABNORMAL) Urinalysis with microscopic (08/17/2013 8:28 AM EDT) Color, UA YELLOW YEL 08/17/2013 10:10 AM EDT [facility] Turbidity UA CLEAR CLEAR 08/17/2013 10:10 AM EDT [facility] Glucose, Ur NEGATIVE NEG 08/17/2013 10:10 AM EDT [facility] Bilirubin Urine NEGATIVE NEG 08/17/201 4 10:10 AM EDT [facility] Ketones, Urine NEGATIVE NEG 08/17/2013 10:10 AM EDT [facility] Specific [place], UA >1.030(H) 1.010 - 1.020 08/17/2013 10:10 AM EDT [facility] Urine Hgb NEGATIVE NEG 08/17/2013 10:10 AM EDT [facility] pH, UA 6.0 5.0 - 9.0 08/17/2013 10:10 AM EDT [facility] Protein, UA NEGATIVE NEG 08/17/2013 10:10 AM EDT [facility] Urobilinogen, Urine Normal NORM 08/17/2013 10:10 AM EDT [facility] Nitrite, Urine NEGATIVE NEG 08/17/2013 10:10 AM EDT [facility] Leukocyte Esterase, Urine NEGATIVE NEG 08/17/2013 10:10 AM EDT [facility] Urinalysis Comments NOT REPORTED [facility] - 08/17/2013 10:10 AM EDT [facility] WBC, UA 0 TO 2 0 - 5 /HPF 08/17/2013 10:10 AM EDT [facility] RBC, UA None 0 - 2 /HPF 08/17/2013 10:10 AM EDT [facility] Casts UA NOT REPORTED 0 - 2 /LPF [facility] Crystals, UA NOT REPORTED NONE /HPF [facility] Epithelial Cells, UA 0 TO 2 0 - 25 /HPF 08/17/2013 10:10 AM EDT [facility] Comment: Performed at [address] [place], [place] [phone] Renal Epithelial, UA NOT REPORTED 0 /HPF [facility] Bacteria, UA NOT REPORTED NONE [facility] Mucus, UA NOT REPORTED NONE [facility] Trichomonas NOT REPORTED NONE [facility] Amorphous, UA NOT REPORTED NONE [facility] Other Observations UA NOT REPORTED NREQ [facility] Yeast, UA NOT REPORTED NONE [facility] URINE SPECIMEN / Unknown 08/17/2013 8:28 AM EDT 08/17/2013 8:29 AM EDT Peewee Westfall DPArin URINE ORDERABLES Final Result [facility] [address] [place] [id number] [phone] [facility] * (ABNORMAL) Basic Metabolic Panel (08/17/2013 8:28 AM EDT) Glucose 135(H) 70 - 99 mg/dL 08/17/2013 9:30 AM EDT [facility] BUN 16 8 - 23 mg/dL 08/17/2013 9:30 AM EDT [facility] Creatinine 0.73 0.70 - 1.20 mg/dL 08/17/2013 9:30 AM EDT [facility] BUN/Creatinine Ratio 22(H) 9 - 20 08/17/2013 9:30 AM EDT [facility] Calcium 9.7 8.6 - 10.0 mg/dL 08/17/2013 9:30 AM EDT [facility] Sodium 138 136 - 145 mmol/L 08/17/2013 9:30 AM EDT [facility] Potassium 4.5 3.5 - 5.1 mmol/L 08/17/2013 9:30 AM EDT [facility] Chloride 104 98 - 107 mmol/L 08/17/2013 9:30 AM EDT [facility] CO2 26 20 - 31 mmol/L 08/17/2013 9:30 AM EDT [facility] Anion Gap NOT REPORTED mmol/L [facility] GFR Non- >60 >60 mL/min 08/17/2013 9:30 AM EDT [facility] GFR >60 >60 mL/min 08/17/2013 9:30 AM EDT [facility] GFR Comment 08/17/2013 9:30 AM EDT [facility] Comment: Average GFR for 60-69 years old: 85 mL/min/1.73sq m Chronic Kidney Disease: <60 mL/min/1.73sq m Kidney failure: <15 mL/min/1.73sq m GFR Staging 08/17/2013 9:30 AM EDT [facility] Comment: Stage 1: Some kidney damage normal GFR Stage 2: Mild kidney damage GFR 60-89 Stage 3: Moderate kidney damage GFR 30-59 Stage 4: Severe kidney damage GFR 15-29 Stage 5: Severe kidney damage GFR <15 ESRD - chronic treatment by dialysis or transplant Performed at [address] [place] [address] BLOOD SPECIMEN / Unknown 08/17/2013 8:28 AM EDT 08/17/2013 8:29 AM EDT Peewee Westfall DPArin CHEMISTRY ORDERABLES Final Re sult [place] [id number] [phone] [facility] * (ABNORMAL) CBC (08/17/2013 8:28 AM EDT) WBC 8.5 3.5 - 11.0 k/uL 08/17/2013 9:13 AM EDT [facility] RBC 5.32 4.5 - 5.9 m/uL 08/17/2013 9:13 AM EDT [facility] Hemoglobin 16.6 13.5 - 17.0 g/dL 08/17/2013 9:13 AM EDT [facility] Hematocrit 49.3 41 - 53 % 08/17/2013 9:13 AM EDT [facility] MCV 92.6 80 - 100 fL 08/17/2013 9:13 AM EDT [facility] MCH 31.2 26 - 34 pg 08/17/2013 9:13 AM EDT [facility] MCHC 33.7 31 - 37 g/dL 08/17/2013 9:13 AM EDT [facility] RDW 14.5(H) 10.0 - 14.0 % 08/17/2013 9:13 AM EDT [facility] Platelets 184 140 - 450 k/uL 08/17/2013 9:13 AM EDT [facility] Comment: Performed at [address] [place] [address] MPV NOT REPORTED 6.0 - 12.0 fL [facility] BLOOD SPECIMEN / Unknown 08/17/2013 8:28 AM EDT 08/17/2013 8:29 AM EDT us Peewee Westfall DPM HEMATOLOGY ORDERABLES Final R esult [facility] [address] [place] [phone], [facility] [phone] [facility] documented in this encounter Visit Diagnoses Not on filedocumented in this encounter Care Teams Hospice Clinical Supervisor Relationship Specialty Start Date End Date Diego Bartlett MD PCP - General 05/10/11 07/24/19 documented as of this encounter
--- OUTSIDE RECORDS SUMMARY | 2015-04-11 02:26 | XMS_ITS | Encounter Summary ---
Author Organization [facility] Address [address] [place] [address] Care Team Providers Care Blocker And Polisher Name Role Phone Diego Bartlett MD Primary Care Provider Yanet garcia Encounter Details Date Type Department Care Team (Late st Contact Info) Description 04/11/2015 1:26 AM EST Hospital Encounter MTH PRE ADMIT [address] [place], [place] [phone] Tiburcio Brennan MD [address] [place] [address] Social History Tobacco Use Types [...] Info) Description 02/22/2025 1:00 PM EDT Appointment [facility] [address] [place], [place] [phone] phlebotomy documented as of this encounter Procedures [...] 12 lead (04/11/2015 9:32 AM EST) Pathologist [facility] Ventricular Rate 77 BPM [facility] Atrial Rate 77 BPM [facility] P-R Interval 174 ms [facility] QRS Duration 80 ms [facility] Q-T Interval 360 ms [facility] QTc Calculation (Bazett) 407 ms [facility] P [place] 51 degrees [facility] R [place] 17 degrees [facility] T [place] 51 degrees [facility] 04/11/2015 9:32 AM EST Narrative [facility] - 04/11/2015 3:49 PM EST Normal sinus rhythmPossible Inferior infarct , age undeterminedAbnormal ECGWhen compared with ECG of 24-OCT-2013 18:45,No significant change was found Procedure Note Result, Unknown Provider - 04/11/2015 Normal sinus rhythmPossible Inferior infarct , age undeterminedAbnormalECGWhen compared with ECG of 24-OCT-2013 18:45,No significant change wasfound us Tiburcio Brennan MD ECG ORDERABLES Final Result [facility] * XR Chest Standard TWO VW (04/11/2015 8:57 AM EST) Anatomical Region Laterality Modality Chest Computed Radiogr aphy Thoracic structure (body structure) 04/11/2015 8:59 AM EST Impressions 04/11/2015 9:02 AM EST IMPRESSION: Stable chest Final report electronically signed by Cathleen Scnheider on 04/11/2015 9:02 AM Narrative 04/11/2015 9:02 [...] Screening Culture Only (04/11/2015 8:50 AM EST) Pathologist [facility] Specimen Description .SUDHAKAR 04/11/2015 8:47 AM EST [facility] Special Requests NOT REPORTED 04/11/2015 8:47 AM EST [facility] Culture NEGATIVE FOR: METHICILLIN RESISTANT STAPHYLOCOCCUS AUREUS 04/14/2015 10:55 AM EST [facility] Culture Performed at [address] [place] [address] 04/14/2015 10:55 AM EST [facility] Culture 04/14/2015 10:55 AM EST [facility] Status FINAL 04/14/2015 04/14/20 15 10:55 AM EST [facility] ANTERIOR NARES SWAB / Unknown 04/11/2015 8:50 AM EST 04/11/2015 8:55 AM EST Tiburcio Brennan MD MICROBIOLOGY - GENERAL ORDERA BLES Final Result [facility] [address] [phone] [facility] * (ABNORMAL) Basic Metabolic Panel (04/11/2015 8:43 AM EST) Glucose 157(H) 70 - 99 mg/dL 04/11/2015 10:03 AM EST [facility] BUN 11 8 - 23 mg/dL 04/11/2015 10:03 AM EST [facility] Creatinine 0.74 0.70 - 1.20 mg/dL 04/11/2015 10:03 AM EST [facility] BUN/Creatinine Ratio 15 9 - 20 04/11/2015 10:03 AM EST [facility] Calcium 9.6 8.6 - 10.4 mg/dL 04/11/2015 10:03 AM EST [facility] Sodium 138 135 - 144 mmol/L 04/11/2015 10:03 AM EST [facility] Potassium 4.3 3.7 - 5.3 mmol/L 04/11/2015 10:03 AM EST [facility] Chloride 100 98 - 107 mmol/L 04/11/2015 10:03 AM EST [facility] CO2 25 20 - 31 mmol/L 04/11/2015 10:03 AM EST [facility] Anion Gap 13 9 - 17 mmol/L 04/11/2015 10:03 AM EST [facility] GFR Non- >60 >60 mL/min 04/11/2015 10:03 AM EST [facility] GFR >60 >60 mL/min 04/11/2015 10:03 AM EST [facility] GFR Comment 04/11/2015 10:03 AM EST [facility] Comment: Average GFR for 60-69 years old: 85 mL/min/1.73sq m Chronic Kidney Disease: <60 mL/min/1.73sq m Kidney failure: <15 mL/min/1.73sq m GFR Staging 04/11/2015 10:03 AM EST [facility] Comment: Stage 1: Some kidney damage normal GFR Stage 2: Mild kidney damage GFR 60-89 Stage 3: Moderate kidney damage GFR 30-59 Stage 4: Severe kidney damage GFR 15-29 Stage 5: Severe kidney damage GFR <15 ESRD - chronic treatment by dialysis or transplant Performed at [address] [place] [address] ([phone] BLOOD SPECIMEN / Unknown 04/11/2015 8:43 AM EST 04/11/2015 8:44 AM EST us Tiburcio Brennan MD CHEMISTRY ORDERABLES Final Re sult [facility] [address] [place] [address], [facility] [phone] [facility] * (ABNORMAL) CBC auto differential (04/11/2015 8:43 AM EST) WBC 8.2 3.5 - 11.0 k/uL 04/11/2015 9:29 AM EST PN LAB RBC 5.25 4.5 - 5.9 m/uL 04/11/2015 9:29 AM EST PN LAB Hemoglobin 16.4 13.5 - 17.0 g/dL 04/11/2015 9:29 AM EST PN LAB Hematocrit 50.9 41 - 53 % 04/11/2015 9:29 AM EST PN LAB MCV 97.0 80 - 100 fL 04/11/2015 9:29 AM EST [facility] MCH 31.3 26 - 34 pg 04/11/2015 9:29 AM EST [facility] MCHC 32.3 31 - 37 g/dL 04/11/2015 9:29 AM EST PN LAB RDW 15.6(H) 12.1 - 15.2 % 04/11/2015 9:29 AM EST PN LAB Platelets 172 140 - 450 k/uL 04/11/2015 9:29 AM EST PN LAB MPV NOT REPORTED 6.0 - 12.0 fL [facility] Differential Type NOT REPORTED [facility] Seg Neutrophils 74(H) 36 - 66 % 5 9:29 AM EST [facility] Lymphocytes 13(L) 24 - 44 % 04/11/2015 9:29 AM EST [facility] Monocytes % 10 0 - 12 % 04/11/2015 9:29 AM EST [facility] Eosinophils % 3 0 - 8 % 04/11/2015 9:29 AM EST [facility] Basophils % 0 0 - 2 % 04/11/2015 9:29 AM EST [facility] Neutrophils Absolute 6.10 1.8 - 7.7 k/uL 04/11/2015 9:29 AM EST [facility] Lymphocytes Absolute 1.00 1.0 - 4.8 k/uL 04/11/2015 9:29 AM EST [facility] Monocytes Absolute 0.80 0.0 - 1.0 k/uL 04/11/2015 9:29 AM EST PN LAB Eosinophils Absolute 0.30 0.0 - 0.4 k/uL 04/11/2015 9:29 AM EST [facility] Basophils Absolute 0.00 0.0 - 0.2 k/uL 04/11/2015 9:29 AM EST [facility] Comment: Performed at [address] [place] [address] ([phone] WBC Morphology NOT REPORTED [facility] RBC Morphology NOT REPORTED [facility] Platelet Estimate NOT REPORTED [facility] BLOOD SPECIMEN / Unknown 04/11/2015 8:43 AM EST 04/11/2015 8:44 AM EST us Tiburcio Brennan MD HEMATOLOGY ORDERABLES Final R esult [facility] [address] [place], [place] [address], [facility] [phone] [facility] documented in this encounter Visit Diagnoses Not on filedocumented in this encounter Care Teams Blocker And Polisher Relationship Specialty Start Date End Date Diego Bartlett MD PCP - General 05/10/11 07/24/19 documented as of this encounter
--- OUTSIDE RECORDS SUMMARY | 2015-05-08 02:32 | XMS_ITS | Encounter Summary ---
Author Organization [facility] Address [address] [place] [address] Care Team Providers Care Manager Service Desk Name Role Phone Diego Bartlett MD Primary Care Provider Yanet garcia Encounter Details Date Type Department Care Team (Late Contact Info) Description 05/08/2015 1:32 AM EST Hospital Encounter [facility]MIT [address] [place] [phone] Tiburcio Brennan MD [address] [place] [address] Social History Tobacco Use Types [...] 1:00 PM EDT Appointment [facility] [address] [place] [address] phlebotomy documented as of this encounter Procedures Procedure Name Priority Date/Time Associated Diagnosis Comments TYPE AND SCREEN Routine 05/08/2015 12:42 PM EST documented in this encounter Results * Type and screen (05/08/2015 12:42 PM EST) Expiration Date 05/15/2015 5 4:00 PM EST [facility] Arm Band Number [id number] 5 4:00 PM EST [facility] ABO/Rh A POSITIVE 05/08/2015 4:00 PM EST [facility] Antibody Screen NEGATIVE 5 4:00 PM EST [facility] Comment: Performed at [address] [place] [address] ([phone] 05/08/2015 12:4 2 PM EST 05/08/2015 12:43 PM EST us Tiburcio Brennan MD BLOOD BANK TEST ORDERABLES Fi nal Result [facility] [address] [place], [place] [address] [phone] [facility] documented in this encounter Visit Diagnoses Not on filedocumented in this encounter Care Teams Manager Service Desk Relationship Specialty Start Date End Date Diego Bartlett MD PCP - General 05/10/11 07/24/19 documented as of this encounter
--- OUTSIDE RECORDS SUMMARY | 2015-09-17 13:44 | XMS_ITS | Encounter Summary ---
Author Organization [facility] Address [address] [place] [address] Care Team Providers Care Chef De Froid Name Role Phone Diego Bartlett MD Primary Care Provider Unavailabl e Encounter Details Date Type Department Care Team (Late Contact Info) Description 09/17/2015 1:44 PM EDT Hospital Encounter [facility] [address] [place] [phone] Newton Stein MD [address] [place] [address] Social History Tobacco Use Types Packs/Day Years [...] PM EDT Appointment [facility] [address] [place] [phone] phlebotomy documented as of this encounter Procedures Procedure Name Priority Date/Time Associated Diagnosis Comments BLOOD GAS, ARTERIAL Sunquest Label Print 09/17/2015 3:10 PM EDT documented in this encounter Results * (ABNORMAL) Blood Gas, Arterial (09/17/2015 3:10 PM EDT) pH, Arterial 7.403 7.35 - 7.45 09/17/2015 3:36 PM EDT [facility] pCO2, Arterial 41.8 35 - 45 mmHg 09/17/2015 3:36 PM EDT [facility] pO2, Arterial 78.5(L) 80 - 100 mmHg 09/17/2015 3:36 PM EDT [facility] HCO3, Arterial 25.5 22 - 26 mmol/L 09/17/2015 3:36 PM EDT [facility] Positive Base Excess, Art 0.6 0.0 - 2.0 mmol/L 09/17/2015 3:36 PM EDT [facility] Negative Base Excess, Art NOT REPORTED 0.0 - 2.0 mmol/L [facility] O2 Sat, Arterial 96.1 95 - 98 % 09/17/2015 3:36 PM EDT [facility] Total Hb NOT REPORTED 12.0 - 16.0 g/dl [facility] Oxyhemoglobin NOT REPORTED 95.0 - 98.0 % [facility] Carboxyhemoglobin 0.3 0.0 - 5.0 % 09/17/2015 3:36 PM EDT [facility] Methemoglobin 0.6 0.0 - 1.9 % 09/17/2015 3:36 PM EDT [facility] Pt Temp 37 09/17/2015 3:36 PM EDT [facility] pH, Art, Temp Adj NOT REPORTED 7.350 - 7.450 [facility] pCO2, Art, Temp Adj NOT REPORTED [facility] pO2, Art, Temp Adj NOT REPORTED 80.0 - 100.0 mmHg [facility] O2 Device/Flow/% ROOM AIR 09/17/19 16 3:36 PM EDT [facility] Respiratory Rate NOT REPORTED [facility] Brennan Test PASS 09/17/2015 3:36 PM EDT [facility] Sample Site Left Radial Artery 09/17/2015 3:36 PM EDT [facility] Comment: Performed at [address] [place] [address] ([phone] Pt. Position NOT REPORTED [facility] Mode NOT REPORTED [facility] Sed Rate NOT REPORTED [facility] Total Rate NOT REPORTED [facility] VT NOT REPORTED [facility] FIO2 NOT REPORTED [facility] Peep/Cpap NOT REPORTED [facility] PSV NOT REPORTED [facility] Text for Respiratory NOT REPORTED [facility] NOTIFICATION NOT REPORTED [facility] Notification Time NOT REPORTED [facility] Blood gases 09/17/2015 3:10 PM EDT 09/17/2015 3:18 PM EDT Newton Stein MD CHP ABG ORDER Final Resu lt [facility] [address] [place] [id number] [phone] [facility] documented in this encounter Visit Diagnoses Not on filedocumented in this encounter Care Teams Chef De Froid Relationship Specialty Start Date End Date Diego Bartlett MD PCP - General 05/10/11 07/24/19 documented as of this encounter
--- OUTSIDE RECORDS SUMMARY | 2024-10-17 13:00 | XMS_ITS | Encounter Summary ---
Author Organization [facility] Address [address] [place] [address] Care Team Providers Care Dishwashing Machine Operator Name Role Phone Jordan Wong MD Primary Care Provider Reason for Visit * Reason Comments Follow-up Anal cancer/Polycyth emia Encounter Details Date Type Department Care Team (Late st Contact Info) Description 10/17/2024 1:00 PM EDT Office Visit [facility] Part of [address] [address] Newton Stein MD [address] [place] [address] Anal cancer (HCC) (Primary Dx); Polycythemia Social History Tobacco Use Types Packs/Day Years [...] on file Sexual Orientation Not on file documented as of this encounter Last Filed Vital Signs Vital Sign Reading Time Taken Comments Blood Pressure 128/64 10/17/2024 1:29 PM EDT Pulse 72 10/17/2024 1:29 PM EDT Temperature 36.4 C (97.5 F) 10/17/2024 1:29 PM EDT Respiratory Rate 18 10/17/2024 1:29 PM EDT Oxygen Saturation - - Inhaled Oxygen Concentration - - Weight 159.2 kg (351 lb) 10/17/2024 1:29 PM EDT Height - - Body Mass Index 40.56 11/09/2023 1:22 PM EDT documented in this encounter Patient Instructions * Patient Instructions* Newton Stein MD - 10/17/2024 1:52 PM EDT Need cbc and phlebotomy is>50 rv in one year documented in this encounter Progress Notes * Newton Stein MD - 10/17/2024 1:46 PM EDT Reason for the visit: Chief Complaint Patient presents with Follow-up Anal cancer/Polycythemia Pertinent Clinical Problems/ Treatments: Polycythemia, likely secondary. Was smoking cigars, quit 04/2014, sleep apnea on CPAP, he was also taking testosterone injections CAD Morbid obesity. Hx of anal cancer in 2006 treated with chemo radiation, in remission. Summary of the case/HPI : Patient has had Hgb since 02/16/12 between 16.4 to 17.9 and Hct between 51.3 to 53.8. On 03/12/14 showed Hgb/Hct of 17.3/53.8. Tested for JAK2 mutation on 03/22 and this was negative. Hepatitis panel was negative except for Hep A was reactive, patient has history on viral hepatitis in the late .PCP referred for evaluation of erythrocytosis. Symptomatically, he has mild fatigue, no unintentional weight loss, no fever no chills No history of stroke or blood clots He is known to have coronary disease with 4 stents placed many years ago His hemoglobin continues ago was around 15 He quit tobacco many years ago but he smokes cigars occasionally He was found to have sleep apnea and he is on maternity CPAP Patient has also history of an early cancer many years ago treated with radiation and chemotherapy and the latest scope was negative Interim history: He is here today for follow-up visit, he is doing well without any issues. We have been doing phlebotomy once or twice a year. He is feeling well and his hemoglobin is rising. He stopped taking the testosterone injection and since then his hemoglobin has improved significantly. He is feeling about the same of the injection so he is not planning to go back to them. He is fairly active without any limitation. He continues to use the CPAP. Past Medical History has a past medical history of Anal carcinoma (HCC), CAD (coronary artery disease), Diabetes mellitus (HCC), Glaucoma, Hypercholesterolemia, Hypertension, Myocardial infarction (HCC), Osteoarthritis, and Septicemia (HCC). Surgical History has a past surgical history that includes cyst removal (over 30 years ago); other surgical history (2006); Umbilical hernia repair (06/2008); Anus surgery (09/2008); Cardiac surgery (cardiac stents x4); Knee arthroscopy (Right); back surgery (in 2012); Hammer toe surgery (Left); Colonoscopy (2008); Colonoscopy (2012); Total knee arthroplasty (Right, 05/12/2015); Foot surgery (Right, 08/06/2016);and pr i&d below fascia foot 1 bursal space (Right, 09/03/2016). Home Medications has a current medication list which includes the following prescription(s): gabapentin, repatha sureclick, metoprolol, famotidine, cyclobenzaprine, diclofenac, tamsulosin, multiple vitamin, losartan,rhopressa, niacin, latanoprost, oxybutynin, testosterone cypionate, brinzolamide-brimonidine, timolol, pioglitazone, aspirin, vitamin d3, and metoprolol succinate. Allergies: Clindamycin hcl, Glipizide, Metformin, Pravastatin, and Rosuvastatin Review of Systems : Constitutional: No fever or chills. No night sweats, no weight loss , weight is stable HEENT: negative for sore mouth, sore throat, hoarseness and voice change Respiratory: negative for cough , sputum, dyspnea, wheezing, hemoptysis, chest pain Cardiovascular: negative for chest pain, dyspnea (although he was dyspneic when he walked a distance in the office) , palpitations, orthopnea, PND Gastrointestinal: negative for nausea, vomiting, diarrhea, constipation, abdominal pain, Dysphagia,hematemesis and hematochezia Genitourinary: negative for frequency, dysuria, nocturia, urinary incontinence, and hematuria Integument: negative for rash, skin lesions, bruises. Hematologic/Lymphatic: negative for easy bruising, bleeding, lymphadenopathy, petechiae and swelling/edema Endocrine: negative for heat or cold intolerance, tremor, weight changes, change in bowel habits and hair loss Musculoskeletal: Pain in the left knee as discussed Neurological : negative for headaches, dizziness, seizures, weakness, numbness Physical Examination : BP 128/64 (BP Site: Left Upper Arm, Patient Position: Sitting, BP Cuff Size: Medium Adult) Pulse 72 Temp 97.5 ??F (36.4 ??C) (Temporal) Resp 18 Wt (!) 159.2 kg (351 lb) BMI 40.56 kg/m?? Performance Status:Estimated performance status is ECOG 1 General appearance - well appearing, no in pain or distress Mental status - alert and cooperative Neck - supple, no significant adenopathy ,trach is central Lymphatics - no palpable lymphadenopathy, no hepatosplenomegaly Chest - clear to auscultation, no wheezes, rales or rhonchi, symmetric air entry Heart - normal rate, regular rhythm, normal S1, S2, no murmurs, rubs, clicks or gallops Abdomen - soft, nontender, nondistended, no masses or organomegaly Neurological - alert, oriented, normal speech, no focal findings or movement disorder noted Musculoskeletal - no joint tenderness, deformity or swelling Extremities - peripheral pulses normal, no pedal edema, no clubbing or cyanosis Skin - normal coloration and turgor, no rashes, no suspicious skin lesions noted Lab Results Component Value Date WBC 6.0 10/10/2024 HGB 14.0 10/10/2024 HCT 42.1 10/10/2024 MCV 101 (H) 10/10/2024 PLT 149 10/10/2024 CBC on 10/23/2019 showed white count of 7, hemoglobin 16.2 and platelets are 124 Assessment: Polycythemia , we do believe it is secondary process rather than primary. The patient was a smoker and has sleep apnea. He was also taking testosterone injections CBC shows normalization of the hemoglobin. CAD with history of stents, no history of recent blood clots in History of anal cancer in 2006, treated with radiation and chemo and no evidence of recurrence History of viral hepatitis. The patient states that he cleared the viral hepatitis we are Thrombocytopenia, likely related to chronic liver disease. Stable Plan: There is continues to do very well. We will continue to watch hemoglobin and do phlebotomy as needed. Continue using the CPAP Platelets are stable We will continue to talk to him about smoking cessation. We will see him annually Newton Stevenson MD Pet Handler/Medical Oncologist [facility] hematology oncology physicians This note is created with the assistance of a speech recognition program. While intending to generate a document that actually reflects the content of the visit, the document can still have some errors including those of syntax and sound a like substitutions which may escape proof reading. It such instances, actual meaning can be extrapolated by contextual diversion. documented in this encounter Plan of Treatment Upcoming Encounters Date Type Department Care Team (Late st Contact Info) Description 02/22/2025 1:00 PM EDT Appointment [facility] [address] [place], [place] [id number] phlebotomy Scheduled Orders Name Type Priority Associated Diagnoses Orde r Schedule CBC with Auto Differential Lab Routine Anal cancer (HCC) Polycythemia 6 Occurrences starting 10/17/2024 until 10/18/2025 documented as of this encounter Visit Diagnoses Diagnosis Anal cancer (HCC)- Primary Malignant neoplasm of anus, unspecified site Polycythemia Polycythemia vera documented in this encounter Care Teams Dishwashing Machine Operator Relationship Specialty Start Date End Date Jordan Wong MD PCP - General 07/25/19 documented as of this encounter
--- OUTSIDE RECORDS SUMMARY | 2024-10-31 09:36 | XMS_ITS ---
Author Organization [facility] 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 kabour) 05/13 S/P cardiac cath-05/13/14-Dr. 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 Current Treatment and Therapy Plans No current plan information found. Other Current Plans Therapeutic Phlebotomy* Plan Start Date:10/18/2024 Plan Provider:Newton Stein MD Linked Problems Polycythemia Treatment Medications No medications scheduled. Past Treatment and Therapy Plans Resolved Problems Problem Noted Date Diagnosed Date Resolved Date Screening for colorectal cancer 02/12/2014 04/03/2018
--- OUTSIDE RECORDS SUMMARY | 2024-10-31 09:36 | XMS_ITS | Referral Summary ---
Author Organization [facility] Address [address] [place] [address] Care Team Providers Care Rn X Ray Name Role Phone Jordan Wong MD Primary Care Provider [phone] Encounters Date Type Department Care Team Description 09/07/2024 Orders Only [facility] [address] [place] [address] Mable Da Silva MA Mixed hyperlipidemia; Coronary artery disease, unspecified vessel or lesion type, unspecified whether angina present, unspecified whether t[place] or transplanted heart from Last 3 Months Allergies Active Allergy Reactions Criticality Noted Date Comments Clindamycin 03/02/2022 Glipizide Other 03/23/2022 Metformin Other 03/23/2022 Pravastatin Other 03/23/2022 Rosuvastatin Other 03/23/2022 Ezetimibe Other 03/23/2022 Medications Medication Sig Dispensed Refills Start Date End Date Status aspirin 81 mg EC tablet Take 1 tablet every day by oral route. Active cholecalciferol (Vitamin D-3) 25 MCG (1000 UT) capsule Take 3 capsules every day by oral route. Active niacin 500 mg tablet Take 1 tablet by mouth once daily as directed. Active oxybutynin XL (Ditropan-XL) 5 mg 24 hr tablet Take 1 tablet by mouth in the morning. Active testosterone cypionate (Depo-Testosterone) 200 mg/mL injection INJECT 400MG INTRAMUSCULARLY EVERY 4 WEEKS Active losartan (Cozaar) 50 mg tablet Take 50 mg by mouth in the morning. Active pioglitazone (Actos) 30 mg tablet Take 30 mg by mouth in the morning. Active gabapentin (Neurontin) 300 mg capsule Take 300 mg by mouth twice a day. Active evolocumab (Repatha SureClick) 140 mg/mL pen injectorIndications :Hyperlipidemia, unspecified hyperlipidemia type Inject 1 Pen under the skin every 14 (fourteen) days. 6 mL 3 05/25/2023 Active Additional Information Patient not taking.Reported on 05/02/2024 metoprolol tartrate (Lopressor) 100 mg tabletIndications:P alpitations Take 100 mg in am and 50 mg in pm every day 135 tablet 3 05/26/2023 Active famotidine (Pepcid) 20 mg tablet Take 20 mg by mouth twice a day. 12/13/2023 Active diclofenac (Voltaren) 75 mg EC tablet if needed. 06/20/2023 Active tamsulosin (Flomax) 0.4 mg 24 hr capsule Take 0.4 mg by mouth twice a day. 01/11/2024 Active amLODIPine (Norvasc) 5 mg tabletIndications:B enign hypertensive heart disease without congestive heart failure Take 1 tablet (5 mg) by mouth once daily as directed. 90 tablet 3 06/08/2024 06/08/19 26 Active Additional Information Patient not taking.Reported on 07/16/2024 isosorbide mononitrate ER (Imdur) 30 mg 24 hr tabletIndications:B enign hypertensive heart disease without congestive heart failure Take 1 tablet (30 mg) by mouth once daily as directed. Do not crush or chew. 90 tablet 3 06/08/2024 06/08/19 26 Active Additional Information Patient not taking.Reported on 07/16/2024 Active Problems Problem Noted Date Diagnosed Date OAB (overactive bladder) 07/16/2024 Phimosis 04/08/2023 04/08/2023 Acquired hammer deformity of great toe 04/08/2023 Acquired hammer toes of both feet 01/11/2023 04/08/2023 BPH with urinary obstruction 01/11/202308/2022 Chronic constipation 01/11/2023 04/08/2023 Elevated PSA 01/11/2023 04/08/2023 History of colon cancer 01/11/2023 04/08/20 23 Hx of retirement use of blood thinners 01/11/2023 04/08/2023 Non-pressure chronic ulcer o f other part of unspecified foot with unspecified severity 01/11/2023 04/08/2023 Nocturia 01/11/2023 04/08/2023 Urinary urgency 01/11/2023 04/08/2023 Urinary frequency 01/11/2023 04/08/2023 Polyneuropathy due to type 2 diabetes mellitus 0 08/17/2021 04/08/2023 Status post total left knee replacement 06/03/2004/08/2023 Difficulty walking 05/26/2021 04/08/2023 Presence of both artificial knee joints 05/25/20 Decreased testosterone level 05/11/202108/2022 Dependence on other enabling machines and device s 03/04/2021 04/08/2023 Osteoarthritis of knee 02/25/2021 Internal derangement of left knee 01/23/2021 04/08/2023 Chronic pain 12/25/2020 04/08/2023 Drug-induced myopathy 10/31/2020 04/08/2023 Foot callus 09/23/2020 Amputation of foot 09/18/2020 04/08/2023 Adverse reaction to statin medication 09/10/2020 04/08/2023 Chronic kidney disease, stage 2 (mild) 0 04/08/2023 Microalbuminuria 11/15/2019 04/08/2023 Coronary arteriosclerosis 02/17/2018 Assessment & Plan (03/23/2022 12:46 PM EDT): No concerning symptoms today Continue GDMT- ASA, toprol, pt is intolerant of Statin and zetia in the past- will need to consider PCSK9 inhibitors. Pt has tried taking crestor, pravastatin, zetia- and was intolerant to statins and zetia in the past. History of myocardial infarction 02/17/2018 Assessment & Plan (03/23/2022 11:49 AM EDT): stable Hyperlipidemia 02/17/2018 Assessment & Plan (03/23/2022 11:48 AM EDT): LDL remains not at goal- need to consider PCSK9 inhibitors. Hypertensive disorder 02/17/2018 Assessment & Plan (03/23/2022 11:49 AM EDT): I believe there is a white coat syndrome component to b/p today in office, at home typically 130/80 or less per his b/p log Continue toprol and losartan Renal function normal Type 2 diabetes mellitus 02/17/2018 Assessment & Plan (03/23/2022 11:49 AM EDT): A1C currently 5.9 and well controlled- f/u with PCP Old myocardial infarction 02/09/20182022 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 3 Former smoker 07/13/2017 04/08/2023 Atherosclerosis of coronary artery without angin a pectoris 04/08/2017 04/08/2023 Fatty liver 04/08/2017 04/08/2023 Testicular hypofunction 04/08/2017 04/08/20 23 Glaucoma 04/08/2017 04/08/2023 Testosterone deficiency 04/08/2017 04/08/20 23 Acute osteomyelitis of metatarsal bone of right foot 08/05/2016 04/08/2023 Morbid obesity 08/05/2016 04/08/2023 Cellulitis and abscess of toe of right foot 06/201604/08/2023 Diabetic peripheral neuropathy 08/04/2016 1 06/08/2022 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 08/04/2016 Obstructive sleep apnea syndrome 10/01/2015 04/08/2023 S/P drug eluting coronary stent placement 201304/08/2023 S/P cardiac cath 05/13/2014 04/08/2023 Overview (04/08/2023): Patent stents Polycythemia 04/05/2014 04/08/2023 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 04/08/2023 Immunizations Name Administration Dates Next Due Influenza, High Dose Seasona l, Preservative Free 03/05/2019,03/03/2018 Influenza, Seasonal, Quadriv alent, Adjuvanted 05/06/2021,03/22/2020 Influenza, Unspecified 03/06/2016 Influenza, injectable, quadr ivalent, preservative free 04/06/2017,01/23/2016 Influenza, seasonal, injectable 03/23/2014,04/06 Novel [id number], preservative-free 04/21 Pneumococcal Conjugate PCV 13 03/03/2018 Pneumococcal Polysaccharide PPV23 03/05/2019,06/2016 Unspecified Sars-Cov-2 Vaccination 06/18/2021,,08/08/2020 Zoster, live 12/04/2016,04/06/2013 Social History Tobacco Use Types Packs/Day Years Used Date Smoking Tobacco: Every Day Cigarettes Tobacco Cessation:Ready to Q uit: Not Asked; Counseling Given: Not Answered Alcohol Use Standard Drinks/Week Comments Yes 0 (1 standard drink = 0.6 oz pur e alcohol) occasional [place] Safety & Environment Answer Date Rec orded Fear of Current or Ex-Partner Not on file Emotionally Abused Not on file 07/28/2023 Physically Abused Not on file 07/28/2023 Sexually Abused Not on file 07/28/2023 Physically or Sexually Abused Not on file Sex and Gender Information Value Date Recorded Sex Assigned at Not on file Gender Identity Not on file Sexual Orientation Not on file Last Filed Vital Signs Vital Sign Reading Time Taken Comments Blood Pressure 130/78 07/16/2024 9:15 AM EST Pulse 75 07/16/2024 9:15 AM EST Temperature - - Respiratory Rate - - Oxygen Saturation 94% 07/16/2024 9:15 AM EST Inhaled Oxygen Concentration - - Weight 157 kg (347 lb) 07/16/2024 9:15 AM EST Height 198.1 cm (6' 6 ) 07/16/2024 9:15 AM EST Body Mass Index 40.1 07/16/2024 9:15 AM EST Plan of Treatment Not on file Care Teams Rn X Ray Relationship Specialty Start Date End Date Jordan Wong MD [address] [place] [address] PCP - General 03/23/22
--- OUTSIDE RECORDS SUMMARY | 2024-10-31 09:36 | XMS_ITS | Encounter Summary ---
Author Organization [facility] Address [address] [place] [address] Care Team Providers Care Decommissioning Well Site Manager Name Role Phone Jordan Wong MD Primary Care Provider Mitch Mello MD Unavailable [phone] Jr. Julio Henson DO Unavailable Alberto Ibrahim DPM Unavailable [phone] Jordan Wong MD Unavailable Julio Huddleston MD Unavailable [phone] Hudson Stevenson MD Unavailable Kitty Edmond OD Unavailable Encounter Details Date Type Department Care Team (Late st Contact Info) Description 05/25/2023 Orders Only [facility] [address] [place] [address] Jordan Wong MD [address] [facility] [address] [place] [address] Social History Tobacco Use Types Packs/Day Years Used Date Smoking Tobacco: Former Cigarettes Q uit: 2013 Smokeless Tobacco: Never Comments:Last smoked : > 10 years Alcohol Use Standard Drinks/Week Comments Yes 2 (1 standard drink = 0.6 oz pure alcohol) 1-2 drinks 2-4 x a month in the past year, Caffeine intake: 1-2 cups per day coffee AUDIT-C Answer Date Recorded Q1: How often do you have a drink containing alc ohol? 2-4 times a month 04/12/2023 Q2: How many drinks containi ng alcohol do you have on a typical day when you are drinking? 1 or 2 04/12/2023 Q3: How often do you have si x or more drinks on one occasion? Never 04/12/2023 PHQ-2 Answer Date Recorded Patient Health Questionnaire-2 Score 0 01/11/2023 Education Answer Date Recorded What is the highest level of school you have completed or the highest degree you have received? High school graduate 01/19/2023 Sex and Gender Information Value Date Recorded Sex Assigned at Not on file Legal Sex Male 8:05 PM EDT Gender Identity Male 08/18/2022 8:05 PM EDT Sexual Orientation Not on file documented as of this encounter Plan of Treatment Not on file documented as of this encounter Visit Diagnoses Not on filedocumented in this encounter Additional Health Concerns Assessment Noted Time PHQ-9 Depression Total Score: 0 05/17/20 9:00 AM EST documented as of this encounter Care Teams Decommissioning Well Site Manager Relationship Specialty Start Date End Date Jordan Wong MD [address] [facility] [address] [place] [address] PCP - General Family Medicine 10/25/22 Jordan Wong MD [address] [facility] [address] [place] [address] PCP - ACO Reach 08/05/23 Mitch Mello MD [address] [place] [id number] Referring Physician Cardiology 05/17/23 07/24/24 Jr. Julio Henson DO [address] [facility] [address] [place] [address] Referring Physician Orthopaedic Surgery 05/17/23 Alberto Ibrahim DPM [address] [place] [address] Referring Physician Podiatry 05/17/23 Julio Huddleston MD [address] [place] [address] Referring Physician Family Medicine 07/25/24 Hudson Stevenson MD [address] [place] [address] Referring Physician Urology 07/25/24 Kitty Edmond OD [address] [place] [address] Referring Physician Optometry 07/25/24 documented as of this encounter
--- OUTSIDE RECORDS SUMMARY | 2024-10-31 09:36 | XMS_ITS | Encounter Summary ---
Author Organization [facility] Address [address] [place] [address] Care Team Providers Care Supervisor Lending Activities Name Role Phone Celi Wong MD Primary Care Provider [phone] Mitch Mello MD Unavailable Jr. Julio Henson DO Unavailable [phone] Alberto Ibrahim DPM Unavailable Celi Wong MD Unavailable [phone] Julio Huddleston MD Unavailable Hudson Stevenson MD Unavailable Kitty Edmond OD Unavailable Encounter Details Date Type Department Care Team (Late st Contact Info) Description 05/18/2024 Clinisync Result Encounter [facility] External Department Unsolicited Provider, Generic External Data Social History Tobacco Use Types Packs/Day Years [...] on file documented as of this encounter Procedures Procedure Name Priority Date/Time Associated Diagnosis Comments NM FAITH PERF SPECT REST STR 05/18/2024 10:06 AM EST documented in this encounter Results * NM FAITH PERF SPECT REST STR (05/18/2024 10:06 AM EST) Anatomical Region Laterality Modality Other 05/18/2024 10:0 6 AM EST Narrative 05/18/2024 10:07 [place] [address] Nuclear Medicine Report Signed Patient: JUAN MIGUEL JENNINGS MR#: [id number] : 1950 Acct:[id number] Age/Sex: 74 / M ADM Date: 05/17/24 Loc: CARD Attending Dr: PAUL WEN APRN Ordering Physician: PAUL WEN APRN Date of Service: 05/17/24 Procedure(s): NM faith perf SPECT rest str Accession Number(s): [id number] cc: CELI WONG ; PAUL WEN APRN Patient Name: JUAN MIGUEL JENNINGS MR#: [id number] : 1950 Exam Date: 05/17/2024 Ordering Doctor: PAUL WEN RETAIL STORE CLERK RADIOLOGY REPORT PROCEDURE: NM FAITH PERF SPECT REST STR COMPARISON: None. INDICATIONS: FATIGUE, CORONARY ARTERY DISEASE TECHNIQUE: Exam Description: Stress/Rest two day protocol gated SPECT Rest Imagin.0 mCi Tc-99m Cardiolite IV on 05/18/2024 Stress Imaging 25.5 mCi Tc-99m Cardiolite IV on 05/17/2024 Exercise Protocol: 0.4 mg Lexiscan given IV Heart Rate (bpm): Rest: 56 Max: 74 PMHR: 50 Blood Pressure: Rest: 154/96 Max: 154/96 Symptoms: Rest and peak stress ECG findings were normal and the exercise portion of the study was normal per attending physician Dr. Christie . For more details please see separate cardiac stress test report. FINDINGS: QUALITY OF STUDY: Good. PERFUSION DEFECT: LOCATION: Mid-anterior. Mid-inferior. Apical anterior. Apical inferior. [place]. SIZE: Large (5 or more segments). SEVERITY: Severe. TYPE: Persistent. WALL MOTION: Moderate hypokinesis: LV SIZE: Enlarged; EDV 180 mL. TID / TCD: None; 1.0 LVEF: Abnormal. Calculated EF 49%. SUMMARY: Myocardial perfusion imaging study has ABNORMAL findings. CONCLUSION: 1. Large fixed defects involving the anterior wall and inferior wall, LAD and RCA distributions 2. No redistribution to suggest reversible ischemia 3. Dilated left ventricle, EDV 180 milliliters 4. Low left ventricular ejection fraction of 49% 5. Normal exercise test Dictated by: Silviano Hugo MD on 05/18/2024 at 10:01 Approved by: Silviano Hugo MD on 05/18/2024 at 10:05 Dictated By: Silviano Hugo M.D. Signed By: 05/18/24 1007 DD/ 1006 TD/TT: Cattle Inspector: Procedure Note Radiology, Radiologist, - 05/18/2024 [place] [address] Nuclear Medicine Report Signed Patient: JUAN MIGUEL JENNINGS JMR#: [id number] : 1950cct:[id number] Age/Sex: 74 / MADM Date: 05/17/24 Loc: CARD Attending Dr: PAUL WEN APRN Ordering Physician: PAUL WEN APRN Date of Service: 05/17/24 Procedure(s): NM faith perf SPECT rest str Accession Number(s): [id number] cc: CELI WONG ; PAUL WEN APRN Patient Name: JUAN MIGUEL JENNINGS MR#: [id number] : 1950 Exam Date: 05/17/2024 Ordering Doctor: PAUL WEN RETAIL STORE CLERK RADIOLOGY REPORT PROCEDURE: NM FAITH PERF SPECT REST STR COMPARISON: None. INDICATIONS: FATIGUE, CORONARY ARTERY DISEASE TECHNIQUE: Exam Description: Stress/Rest two day protocol gated SPECT Rest Imagin.0 mCi Tc-99m Cardiolite IV on 05/18/2024 Stress Imaging 25.5 mCi Tc-99m Cardiolite IV on 05/17/2024 Exercise Protocol: 0.4 mg Lexiscan given IV Heart Rate (bpm): Rest: 56 Max: 74 PMHR: 50 Blood Pressure: Rest: 154/96 Max: 154/96 Symptoms: Rest and peak stress ECG findings were normal and the exercise portion ofthe study was normal per attending physician Dr. Christie . For more details please see separate cardiac stress test report. FINDINGS: QUALITY OF STUDY: Good. PERFUSION DEFECT: LOCATION: Mid-anterior. Mid-inferior. Apical anterior. Apical inferior. [place]. SIZE: Large (5 or more segments). SEVERITY: Severe. TYPE: Persistent. WALL MOTION: Moderate hypokinesis: LV SIZE: Enlarged; EDV 180 mL. TID / TCD: None; 1.0 LVEF: Abnormal. Calculated EF 49%. SUMMARY: Myocardial perfusion imaging study has ABNORMAL findings. CONCLUSION: 1. Large fixed defects involving the anterior wall and inferior wall, LADand RCA distributions 2. No redistribution to suggest reversible ischemia 3. Dilated left ventricle, EDV 180 milliliters 4. Low left ventricular ejection fraction of 49% 5. Normal exercise test Dictated by: Silviano Hugo MD on 05/18/2024 at 10:01 Approved by: Silviano Hugo MD on 05/18/2024 at 10:05 Dictated By: Silviano Hugo M.D. Signed By:05/18/24 1007 DD/ 1006 TD/TT: Cattle Inspector: us Generic External Data Provider [facility] Final Result documented in this encounter Visit Diagnoses Not on filedocumented in this encounter Additional Health Concerns Assessment Noted Time PHQ-9 Depression Total Score: 0 05/17/20 23 9:00 AM EST documented as of this encounter Care Teams Supervisor Lending Activities Relationship Specialty Start Date End Date Celi Wong MD [address] [address] PCP - General Family Medicine 10/25/22 Celi Wong MD [address] [place], [place] [id number] PCP - ACO Reach 08/05/23 Mitch Mello MD [address] [place] [address] Referring Physician Cardiology 05/17/23 07/24/24 Jr. Julio Henson DO [address] [place], [place] [id number] Referring Physician Orthopaedic Surgery 05/17/23 Alberto Ibrahim DPM [address] [place], [place] [id number] Referring Physician Podiatry 05/17/23 Julio Huddleston MD [address] [place] [address] Referring Physician Family Medicine 07/25/24 Hudson Stevenson MD [address] [place], [place] [id number] Referring Physician Urology 07/25/24 Kitty Edmond OD [address] [place] [address] Referring Physician Optometry 07/25/24 documented as of this encounter
--- OUTSIDE RECORDS SUMMARY | 2024-10-31 09:36 | XMS_ITS | Encounter Summary ---
Author Organization [facility] Address [address] [place] [address] Care Team Providers Care Glass Checker Name Role Phone Jordan Wong MD Primary Care Provider [phone] Mitch Mello MD Unavailable Jr. Julio Henson DO Unavailable Alberto Ibrahim DPM Unavailable [phone] Jordan Wong MD Unavailable Julio Huddleston MD Unavailable Hudson Stevenson MD Unavailable Kitty Edmond OD Unavailable Encounter Details Date Type Department Care Team (Late st Contact Info) Description 10/28/2023 Abstract [facility] [address] [place] [address] Jordan Wong MD [address] [facility] [address] [place] [address] Social History Tobacco Use Types [...] documented as of this encounter Care Teams Glass Checker Relationship Specialty Start Date End Date Jordan Wong MD [address] [facility] [address] [place] [address] PCP - General Family Medicine 10/25/22 Jordan Wong MD [address] [facility] [address] [place] [address] PCP - ACO Reach 08/05/23 Mitch Mello MD [address] [place] [address] Referring Physician Cardiology 05/17/23 07/24/24 Jr. Julio Henson DO [address] [facility] [address] [place] [address] Referring Physician Orthopaedic Surgery 05/17/23 Alberto Ibrahim DPM [address] [place] [address] Referring Physician Podiatry 05/17/23 Julio Huddleston MD [address] [place] [address] Referring Physician Family Medicine 07/25/24 Hudson Stevenson MD [address] [place] [address] Referring Physician Urology 07/25/24 Kitty Edmond OD [address] [facility] [place] [address] Referring Physician Optometry 07/25/24 documented as of this encounter
--- OUTSIDE RECORDS SUMMARY | 2024-10-31 09:36 | XMS_ITS | Encounter Summary ---
Author Organization [facility] Address [address] [place] [address] Care Team Providers Care Co Founder Name Role Phone Jordan Wong MD Primary Care Provider [phone] Mitch Mello MD Unavailable [phone] Jr. Julio Henson DO Unavailable Alberto Ibrahim DPM Unavailable Jordan Wong MD Unavailable [phone] Julio Huddleston MD Unavailable Hudson Stevenson MD Unavailable Kitty Edmond OD Unavailable Encounter Details Date Type Department Care Team (Late st Contact Info) Description 10/25/2023 Orders Only [facility] [address] [place] [address] Newton Stevenson MD [address] [place], [place] [id number] Social History Tobacco Use Types Packs/Day Years [...] Procedure Name Priority Date/Time Associated Diagnosis Comments CBC WITH AUTO DIFFERENTIAL Routine 10/25/2023 4:05 PM EDT COMPREHENSIVE METABOLIC PANEL Routine 10/25/2023 4:05 PM EDT documented in this encounter Results * Comprehensive metabolic panel (10/25/2023 4:05 PM EDT) Blood Venous blood specimen / Unknown Newton Stevenson MD LAB BLOOD ORDERABLES Leonora l Result * CBC auto differential (10/25/2023 4:05 PM EDT) Blood Venous blood specimen / Unknown Newton Stevenson MD LAB BLOOD ORDERABLES Leonora l Result documented in this encounter Visit Diagnoses Not on filedocumented in this encounter Additional Health Concerns Assessment Noted Time PHQ-9 Depression Total Score: 0 05/17/20 23 9:00 AM EST documented as of this encounter Care Teams Co Founder Relationship Specialty Start Date End Date Jordan Wong MD [address] [address] PCP - General Family Medicine 10/25/22 Jordan Wong MD [address] [place] [address] PCP - ACO Reach 08/05/23 Mitch Mello MD [address] [place] [address] Referring Physician Cardiology 05/17/23 07/24/24 Jr. Julio Henson DO [address] [place] [address] Referring Physician Orthopaedic Surgery 05/17/23 Alberto Ibrahim DPM [address] [place], [place] [phone] Referring Physician Podiatry 05/17/23 Julio Huddleston MD [address] [place] [address] Referring Physician Family Medicine 07/25/24 Hudson Stevenson MD [address] [place] [address] Referring Physician Urology 07/25/24 Kitty Edmond OD [address] [facility] [place] [address] Referring Physician Optometry 07/25/24 documented as of this encounter
--- OUTSIDE RECORDS SUMMARY | 2024-10-31 09:36 | XMS_ITS | Clinical Summary ---
Author Organization [facility] Address [address] [place] [address] Care Team Providers Care Caustic Purification Operator Name Role Phone Jordan Wong MD Primary Care Provider [phone] Jr. Julio Henson DO Unavailable Alberto Ibrahim DPM Unavailable Jordan Wong MD Unavailable Julio Huddleston MD Unavailable Hudson Stevenson MD Unavailable Kitty Edmond OD Unavailable Allergies Active Allergy Reactions Criticality Noted Date Comments Clindamycin Diarrhea 08/31/2021 Other reaction(s): nausea diarrhea Ezetimibe Unknown 08/31/2021 Other Reaction(s): abdominal pain Glipizide Diarrhea,Unknown 08/31/2021 Other Reaction(s): diarrhea Metformin Diarrhea,Unknown 08/31/2021 Other Reaction(s): diarrhea Pravastatin Unknown 08/31/2021 Other Reaction(s): Other Other reaction(s): abdominal pain Rosuvastatin Unknown 09/10/2020 Other Reaction(s): abdominal pain Other reaction(s): abdominal pain Medications cholecalciferol (Vitamin D-3) 50 MCG (1999) tablet Take by mouth Active Simbrinza 1-0.2 % suspension every 8 (eight) hours Active oxybutynin XL (Ditropan-XL) 5 MG 24 hr tablet 09/09/19 18 Active latanoprost (Xalatan) 0.005 % ophthalmic solution 07/27/19 19 Active tamsulosin (Flomax) 0.4 MG 24 hr capsule Take 0.4 mg by mouth in the morning and 0.4 mg in the evening. Take after meals. Active aspirin 81 MG EC tabletIndication s:Arterioscleros is of coronary artery (CMS/HCC) Take 1 tablet (81 mg) by mouth in the morning. 04/19/20 23 Active Multiple Vitamin (multivitamin) capsule Take 1 capsule by mouth Daily Active amLODIPine (Norvasc) 5 MG tablet Take 5 mg by mouth Daily 06/08/19 25 026 Active isosorbide mononitrate ER (Imdur) 30 MG 24 hr tablet Take 30 mg by mouth Daily 06/08/19 25 026 Active timolol (Timoptic) 0.5 % ophthalmic solution Administer 1 drop into both eyes in the morning and 1 drop before bedtime. 05/31/20 24 Active pioglitazone (Actos) 30 MG tabletIndication s:Type 2 diabetes mellitus with diabetic polyneuropathy, without long-term current use of insulin (CMS/HCC) Take 1 tablet (30 mg) by mouth in the morning. 90 tablet 1 09/19/19 25 025 Active losartan (Cozaar) 50 MG tabletIndication s:Essential hypertension (CMS/HCC) Take 1 tablet (50 mg) by mouth Daily 90 tablet 1 09/19/19 25 025 Active metoprolol tartrate (Lopressor) 100 MG tabletIndication s:Essential hypertension (CMS/HCC) Take 1 tablet (100 mg) by mouth See administration instructions 1 tablet in AM. 0.5 tablet in PM 135 tablet 09/19/19 25 025 Active cyclobenzaprine (Flexeril) 10 MG tabletIndication s:Lumbar paraspinal muscle spasm Take 1 tablet (10 mg) by mouth 3 (three) times a day as needed for muscle spasms 90 tablet 10/19/19 25 025 Active famotidine (Pepcid) 20 MG tabletIndication s:Dyspepsia Take 1 tablet (20 mg) by mouth in the morning and 1 tablet (20 mg) before bedtime. 180 tablet 10/19/19 25 025 Active gabapentin (Neurontin) 100 MG capsuleIndicatio ns:Type 2 diabetes mellitus with diabetic polyneuropathy, without long-term current use of insulin (CMS/HCC) Titrate from 1 to 2 capsules three times daily as needed for pain 540 capsule 1 10/19/19 25 Active cyclobenzaprine (Flexeril) 10 MG tabletIndication s:Lumbar paraspinal muscle spasm Take 1 tablet (10 mg) by mouth 3 (three) times a day as needed for muscle spasms. 90 tablet 04/19/20 23 025 Discontin ued(Reord er) famotidine (Pepcid) 20 MG tabletIndication s:Dyspepsia Take 1 tablet (20 mg) by mouth in the morning and 1 tablet (20 mg) before bedtime. 180 tablet 06/18/19 25 025 Discontin ued(Reord er) gabapentin (Neurontin) 100 MG capsuleIndicatio ns:Type 2 diabetes mellitus with diabetic polyneuropathy, without long-term current use of insulin (CMS/HCC) Titrate from 1 to 4 capsules three times daily as needed for pain 100 capsule 09/19/19 25 025 Discontin ued(Reord er) Active Problems Problem Noted Date Diagnosed Date OAB (overactive bladder) 07/16/2024 Acquired hammer toes of both feet 01/11/2023 BPH with urinary obstruction 01/11/2023 Chronic constipation 01/11/2023 Elevated PSA 01/11/2023 Open-angle glaucoma 01/11/2023 History of colon cancer 01/11/2023 Hx of correction use of blood thinners 01/11/2023 Hypogonadism male 01/11/2023 Type 2 diabetes mellitus wit h diabetic microalbuminuria, without long-term current use of insulin 01/11/2023 Presence of both artificial knee joints 05/25/20 21 Decreased testosterone level 05/11/2021 Dependence on other enabling machines and device s 03/04/2021 Osteoarthritis of knee 02/25/2021 Chronic pain 12/25/2020 Drug-induced myopathy 10/31/2020 Mixed hyperlipidemia 10/31/2020 Foot callus 09/23/2020 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, left Adverse reaction to statin medication 09/10/2020 Microalbuminuria 11/15/2019 History of myocardial infarction 02/17/2018 Overview (01/11/2023): Last Assessment & Plan: stable Type 2 diabetes mellitus wit h diabetic polyneuropathy, without long-term current use of insulin 10/05/2017 Former smoker 07/13/2017 Atherosclerosis of coronary artery without angin a pectoris 04/08/2017 Fatty liver 04/08/2017 Testosterone deficiency 04/08/2017 Morbid obesity 08/05/2016 Obstructive sleep apnea syndrome 10/01/2015 Essential hypertension 05/13/2014 Overview (01/11/2023): Last Assessment & Plan: I believe there is a white coat syndrome component to b/p today in office, at home typically 130/80 or less per his b/p log Continue toprol and losartan Renal function normal S/P drug eluting coronary stent placement 2013 Polycythemia 04/05/2014 Resolved Problems Problem Noted Date Diagnosed Date Resolved Date Acquired hammer deformity of great toe 01/11/2023 03/28/2024 Glaucoma of both eyes 01/11/20232022 Nocturia 01/11/2023 10/10/2023 Phimosis 01/11/2023 01/13/2023 Pressure injury of right foot, stage 1 01/11/2023 01/13/2023 Type 2 diabetes mellitus with foot ulcer 01/11/2023 05/17/2023 Type 2 diabetes mellitus wit h stage 2 chronic kidney disease, without long-term current use of insulin 01/11/2023 10/14/2023 Urinary frequency 01/11/2023 05/17/2023 Urinary urgency 01/11/2023 05/17/2023 Polyneuropathy due to type 2 diabetes mellitus 08/17/2021 01/13/2023 Status post total left knee replacement 06/03/2021 05/17/2023 Difficulty walking 05/26/2021 Unilateral primary osteoarthritis, left knee 01/13/2023 Internal derangement of left knee 01/23/2021 01/13/2023 Other chronic pain 12/25/2020 Chronic kidney disease, stage 2 (mild) 11/15/2019 10/14/2023 Old myocardial infarction 02/09/2018 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05/17 Acute osteomyelitis of metat arsal bone of right foot (HCC) 08/05/2016 01/13/2023 Cellulitis and abscess of toe of right foot 08/04/2016 01/13/2023 Diabetic peripheral neuropathy 08/04/2016 01/13/2023 S/P cardiac cath 05/13/2014 01/13/2023 Overview (01/11/2023): Patent stents Encounters Date Type Department Care Team Description 10/18/2024 Telephone [facility] [address] [facility] [address] [place] [address] Jordan Wong MD 09/18/2024 9:30 AM EDT Office Visit [facility] [address] [facility] [address] [place] [address] Jordan Wong MD Essential hypertension (CMS/HCC) (Primary Dx); Microalbuminuria; Type 2 diabetes mellitus with diabetic microalbuminuria, without long-term current use of insulin (CMS/HCC); Type 2 diabetes mellitus with diabetic polyneuropathy, without long-term current use of insulin (CMS/HCC); Mixed hyperlipidemia ([facility]); Adverse reaction to statin medication 09/18/2024 Bamboo flowsheet [facility] [address] [facility] [address] [place] [address] Jordan Wong MD 09/18/2024 Travel 09/13/2024 Refill [facility] [address] [facility] [address] [place] [address] Jordan Wong MD Dyspepsia 09/11/2024 Telephone [facility] [address] [facility] [address] [place] [address] Pamella Sam MA Lab Orders from Last 3 Months Immunizations Immunization Administration Dates Next Due Influenza, [id number] 03/06/2016 Influenza, High Dose Seasona l, Preservative Free 03/05/2019,03/03/2018 Influenza, High-dose Seasona l, Quadrivalent, Preservative Free 03/04/2019,03/06/2016 Influenza, Seasonal, Quadriv alent, Adjuvanted 02/28/2023,04/16/2022,05/06/2021,03/22 Influenza, Unspecified 02/28/2023,2021,05/06/2021,03/22,03/05/2019,03/03/2018,04/06/2017 ,03/06/2016,03/06/2016,01/23/2016,03/06,04/06/2013 Influenza, injectable, quadr ivalent, preservative free 04/06/2017,01/23/2016 Influenza, seasonal, injectable 03/28/2024,03/23,04/06/2013 Influenza, trivalent, adjuvanted 03/28/2024 Moderna Bivalent Booster Vaccination 03/23/2022 Moderna SARS-CoV-2 50mcg/0.5mL Booster Novel [id number], preservative-free 04/21/2009 Pfizer Bivalent Booster 12 Y ears And Older 03/23/2022 Pfizer Purple Cap SARS-CoV-2 Vaccination 08/28/2020,08/27/2020,08/08/2020,08/07 Pneumococcal Conjugate PCV 13 03/06/2019, 018,03/02/2018 Pneumococcal Polysaccharide PPSV23 03/05/2019,,03/03/2018 SARS-COV-2 (COVID-19) vaccin e, mRNA, spike protein, LNP, bivalent, preservative free, 30 mcg/0.3 mL dose, palomo-sucrose formulation 03/23/2022 SARS-CoV-2, Unspecified 08/28/2020,08/08/2020 Zoster, live 12/04/2016,04/06/2013,04/05/2013 Family History Medical History Relation Name Comments Colon cancer Brother Diabetes Brother Heart disease Father Diabetes Mother Heart disease Mother Relation Name Status Comments Brother 1 brother Daughter Alive 2 daughters Father Mother Son Alive 1 son Social History Tobacco Use Types Packs/Day Years Used Date Smoking Tobacco: Former Cigarettes Q uit: 2013 Smokeless Tobacco: Never Tobacco Cessation:Counseling Given: Yes Comments:Last smoked : > 10 years Alcohol [...] Date Recorded Patient Health Questionnaire-2 Score 0 09/18/2024 Education Answer Date Recorded What is the highest level of school you have completed or the highest degree you have received? High school graduate 01/19/2023 Sex and Gender Information Value Date Recorded Sex Assigned at Not on file Legal Sex Male 8:05 PM EDT Gender Identity Male 08/18/2022 8:05 PM EDT Sexual Orientation Not on file Last Filed Vital Signs Vital Sign Reading Time Taken Comments Blood Pressure 124/70 09/18/2024 9:24 AM EDT Pulse 63 09/18/2024 9:24 AM EDT Temperature - - Respiratory Rate - - Oxygen Saturation 98% 09/18/2024 9:24 AM EDT Inhaled Oxygen Concentration - - Weight 157 kg (347 lb) 09/18/2024 9:24 AM EDT Height 198.1 cm (6' 6 ) 09/18/2024 9:24 AM EDT Body Mass Index 40.1 09/18/2024 9:24 AM EDT Plan of Treatment Health Maintenance Due Date Last Done Comments CT Colonography 1952 FIT-DNA 1952 FIT 1952 FOBT 1950 Sigmoidoscopy 1950 Diabetes: Hemoglobin A1C 12/12/2024 025, 03/21/2024, 10/05/2023, Additional history exists Medicare Annual Wellness (AWV) 07/25/2025 0 07/25/2024, 07/25/2024, 05/17/2023, Additional history exists Diabetes: Urine Protein Screening 09/18/2025 09/18/2024, 11/11/2020, 12/21/2017 Diabetes: Retinopathy Screening 09/29/2025 09/30/2023, 11/25/2021, 11/12/2020, Additional history exists Colonoscopy 12/17/2030 12/17/2020 Colorectal Cancer Screening 12/17/2030 Pneumococcal Vaccine: 65+ Years Completed 03/06/2019, 03/05/2019, 03/04/2019, Additional history exists Influenza Vaccine Completed 03/28/2024, , 02/28/2023, Additional history exists Procedures Procedure Name Priority Date/Time Associated Diagnosis Comments POCT MICROALBUMIN Routine 09/18/2024 9:3 4 AM EDT Essential hypertension ([facility]) Microalbuminuria Type 2 diabetes mellitus with diabetic microalbuminuria, without long-term current use of insulin ([facility]) Type 2 diabetes mellitus with diabetic polyneuropathy, without long-term current use of insulin ([facility]) COMPREHENSIVE METABOLIC PANEL Routine 09/12/2024 8:26 AM EDT HEMOGLOBIN A1C Routine 09/12/2024 8:26 AM EDT Type 2 diabetes mellitus with diabetic polyneuropathy, without long-term current use of insulin ([facility]) LIPID PANEL Routine 09/12/2024 8:26 AM EDT Mixed hyperlipidemia ([facility]) DIABETIC RETINOPATHY SCREENING - OU - BOTH EYES Routine 09/30/2023 9:57 AM EDT COLONOSCOPY Routine 12/17/2020 12:00 PM EDT from Last 3 Months or Most Recently Relevant to Health Maintenance Results * (ABNORMAL) POCT microalbumin manually resulted (09/18/2024 9:34 AM EDT) MICROALBUMIN, URINE 150 ALB/CREAT RATIO 300 URINE CREAT 50 Urine 09/18/2024 9:34 AM EDT Jordan Wong MD POINT OF CARE TEST ENTER/LISA T ORDERABLES Final Result * (ABNORMAL) Hemoglobin A1c (09/12/2024 8:26 AM EDT) Hemoglobin A1C 6.3(H) <5.7 % of total Hgb [facility] Comment: For someone without known diabetes, a [...] A1c for diagnosis of diabetes for children. Blood Venous blood specimen / Unknown 09/12/2024 8:26 AM EDT 09/12/2024 3:00 PM EDT Narrative [facility] - 09/13/2024 3:02 AM EDT FASTING:YES FASTING: YES Resulting Agency Comment Performing Organization Information Site ID: QPT Name: [facility] Address: [address] [place] [address], [address] [place] [phone] Director: Toan Lara MD Jordan Wong MD LAB BLOOD ORDERABLES Final R esult [facility] * (ABNORMAL) Lipid panel (09/12/2024 8:26 AM EDT) CHOLESTEROL, TOTAL 242(H) <200 mg/dL [facility] HDL CHOLESTEROL 40 > OR = 40 mg/dL [facility] TRIGLYCERIDES 389(H) <150 mg/dL [facility] Comment: If a non-fasting specimen was collected, consider repeat triglyceride testing on a fasting specimen if clinically indicated. Aaliyah et al. J. of Clin. Lipidol. 2015;9:129-169. LDL-CHOLESTEROL 142(H) mg/dL (calc) [facility] Comment: Reference range: <100 Desirable range <100 mg/dL for primary prevention; <70 mg/dL for patients with CHD or diabetic patients with > or = 2 CHD risk factors. LDL-C is now calculated using the Marko calculation, which is a validated novel method providing better accuracy than the Friedewald equation in the estimation of LDL-C. Deion TORIBIO et al. MAHENDRA. 2013;310(19): 7924-9207 (http://education.[employer].smartfundit.com/faq/QQX501) CHOL/HDLC RATIO 6.1(H) <5.0 (calc) [facility] NON HDL CHOLESTEROL 202(H) <130 mg/dL (calc) [facility] Comment: For patients with diabetes plus 1 major ASCVD risk factor, treating to a non-HDL-C goal of <100 mg/dL (LDL-C of <70 mg/dL) is considered a therapeutic option. Blood Venous blood specimen / Unknown 09/12/2024 8:26 AM EDT 09/12/2024 3:00 PM EDT Narrative [facility] - 09/13/2024 3:02 AM EDT FASTING:YES FASTING: YES Resulting Agency Comment Performing Organization Information Site ID: QPT Name: [facility] Address: [address] [place] [address], [address] [place] [phone] Director: Toan Lara MD Jordan Wong MD LAB BLOOD ORDERABLES Final R esult [facility] * (ABNORMAL) Comprehensive metabolic panel (09/12/2024 8:26 AM EDT) [facility] Glucose 129(H) 65 - 99 mg/dL [facility] Comment: Fasting reference interval For someone without known diabetes, a glucose value >125 mg/dL indicates that they may have diabetes and this should be confirmed with a follow-up test. BUN 23 7 - 25 mg/dL [facility] Creatinine 0.84 0.70 - 1.28 mg/dL [facility] EGFR 93 > OR = 60 mL/min/1. 73m2 [facility] BUN/CREATININE RATIO SEE NOTE: 6 - 22 (calc) [facility] Comment: Not Reported: BUN and Creatinine are within reference range. Sodium 140 135 - 146 mmol/L [facility] Potassium, Bld 4.7 3.5 - 5.3 mmol/L [facility] Chloride 105 98 - 110 mmol/L [facility] Carbon Dioxide 26 20 - 32 mmol/L [facility] Calcium 9.3 8.6 - 10.3 mg/dL [facility] PROTEIN, TOTAL 7.1 6.1 - 8.1 g/dL [facility] ALBUMIN 4.3 3.6 - 5.1 g/dL [facility] GLOBULIN 2.8 1.9 - 3.7 g/dL (calc) [facility] ALBUMIN/GLOBULIN RATIO 1.5 1.0 - 2.5 (calc) [facility] BILIRUBIN, TOTAL 0.7 0.2 - 1.2 mg/dL [facility] ALKALINE PHOSPHATASE 64 35 - 144 U/L [facility] AST 23 10 - 35 U/L [facility] ALT 32 9 - 46 U/L [facility] 09/12/2024 8:26 AM EDT 09/12/2024 3:00 PM EDT Narrative [facility] - 09/13/2024 3:02 AM EDT FASTING:YES FASTING: YES Resulting Agency Comment Performing Organization Information Site ID: QTW Name: [facility] Address: [address] [place] [phone] Director: Parvin Gray Jordan Wong MD LAB BLOOD ORDERABLES Final R esult [facility] * Diabetic Retinopathy Screening - OU - Both Eyes (09/30/2023 9:57 AM EDT) Anatomical Region Laterality Modality Head Other Kitty Edmond OD OPHTH PHOTOGRAPHY Final Result * Colonoscopy (12/17/2020 12:00 PM EDT) Anatomical Region Laterality Modality Endoscopy 12/17/2020 12:0 0 PM EDT Narrative 12/17/2020 12:00 PM EDT PERFORMED AT [facility] LOCATION:[id number] Procedure Note CONVERSION, GENERIC - 10/20/2022 PERFORMED AT [facility] LOCATION:[id number] Jordan Wong MD ENDOSCOPY PROCEDURE ORDERABL ES Final Result from Last 3 Months or Most Recently Relevant to Health Maintenance Insurance MEDICARE [facility] Advance Directives Documents on File Type Date Recorded 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 Julio Henson DO [address] [place] [address] Referring Physician Orthopaedic Surgery 05/17/23 Alberto Ibrahim DPM [address] [place] [address] Referring Physician Podiatry 05/17/23 Julio Huddleston MD [address] [place] [address] Referring Physician Family Medicine 07/25/24 Hudson Stevenson MD [address] [place] [address] Referring Physician Urology 07/25/24 Kitty Edmond OD [address] [facility] [place] [address] Referring Physician Optometry 07/25/24
--- OUTSIDE RECORDS SUMMARY | 2024-10-31 09:36 | XMS_ITS | Encounter Summary ---
Author Organization [facility] Address [address] [facility] [place] [address] Care Team Providers Care Tablet Coater Name Role Phone Jordan Wong MD Primary Care Provider Mitch Mello MD Unavailable Jr. Julio Henson DO Unavailable Alberto Ibrahim DPM Unavailable Jordan Wong MD Unavailable Julio Huddleston MD Unavailable [phone] Hudson Stevenson MD Unavailable [phone] Kitty Edmond OD Unavailable Encounter Details Date Type Department Care Team (Late st Contact Info) Description 03/07/2023 Abstract [facility] [address] [place] [address] Alberto Ibrahim DPM [address] [place], [place] [id number] Social History Tobacco Use Types Packs/Day Years Used Date Smoking Tobacco: Former Cigarettes Q uit: 2013 Smokeless Tobacco: Never Alcohol Use Standard Drinks/Week Comments Not Currently 0 (1 standard drink = 0.6 oz pure alcohol) 1-2 drinks 2-4 x a month in the past year, Caffeine intake: 1-2 cups per day coffee PHQ-2 Answer Date Recorded Patient Health Questionnaire-2 [...] on filedocumented in this encounter Care Teams Tablet Coater Relationship Specialty Start Date End Date Jordan Wong MD [address] [facility] [address] [place] [address] PCP - General Family Medicine 10/25/22 Jordan Wong MD [address] [facility] 100 [place] [address] PCP - ACO Reach 08/05/23 Mitch Mello MD [address] [place] [address] Referring Physician Cardiology 05/17/23 07/24/24 Jr. Julio Henson DO [address] [facility] [address] [place] [address] Referring Physician Orthopaedic Surgery 05/17/23 Alberto Ibrahim DPM [address] [place] [address] Referring Physician Podiatry 05/17/23 Julio Huddleston MD [address] [place] [address] Referring Physician Family Medicine 07/25/24 Hudson Stevenson MD [address] [place] [address] Referring Physician Urology 07/25/24 Kitty Edmond OD [address] [place] [address] Referring Physician Optometry 07/25/24 documented as of this encounter
--- OUTSIDE RECORDS SUMMARY | 2024-10-31 09:36 | XMS_ITS | Encounter Summary ---
Author Organization [facility] Address [address] [facility] [place] [address] Care Team Providers Care Caustic Pump Operator Name Role Phone Jordan Wong MD Primary Care Provider Mitch Mello MD Unavailable Jr. Julio Henson DO Unavailable Alberto Ibrahim DPM Unavailable [phone] Jordan Wong MD Unavailable [phone] Julio Huddleston MD Unavailable [phone] Hudson Stevenson MD Unavailable [phone] Kitty Edmond OD Unavailable Encounter Details Date Type Department Care Team (Late st Contact Info) Description 01/19/2023 Abstract [facility] [address] [place] [address] Alberto Ibrahim DPM [address] [place], [place] [id number] Social History Tobacco Use Types Packs/Day Years Used Date Smoking Tobacco: Former Cigarettes Q uit: 2013 Smokeless Tobacco: Never Tobacco Cessation:Counseling Given: Not Answered Alcohol Use Standard Drinks/Week Comments Not Currently [...] on filedocumented in this encounter Care Teams Caustic Pump Operator Relationship Specialty Start Date End Date Jordan Wong MD [address] [facility] 100 [place] [address] PCP - General Family Medicine 10/25/22 Jordan Wong MD [address] [facility] 100 [place] [address] PCP - ACO Reach 08/05/23 Mitch Mello MD [address] [place] [address] Referring Physician Cardiology 05/17/23 07/24/24 Jr. Julio Henson DO [address] [facility] 150 [place] [address] Referring Physician Orthopaedic Surgery 05/17/23 Alberto Ibrahim DPM [address] [place], [place] [address] [address] Referring Physician Podiatry 05/17/23 Julio Huddleston MD [address] [place] [address] Referring Physician Family Medicine 07/25/24 Hudson Stevenson MD [address] [place] [id number] Referring Physician Urology 07/25/24 Kitty Edmond OD [address] [place] [address] Referring Physician Optometry 07/25/24 documented as of this encounter
--- OUTSIDE RECORDS SUMMARY | 2024-10-31 09:36 | XMS_ITS | Encounter Summary ---
Author Organization [facility] Address [address] [facility] [place] [address] Care Team Providers Care Cloth Napping Supervisor Name Role Phone Celi Wong MD Primary Care Provider Mitch Mello MD Unavailable Jr. Julio Henson DO Unavailable [phone] Alberto Ibrahim DPM Unavailable Celi Wong MD Unavailable [phone] Julio Huddleston MD Unavailable [phone] Hudson Stevenson MD Unavailable [phone] Kitty Edmond OD Unavailable Encounter Details Date Type Department Care Team (Late st Contact Info) Description 05/22/2024 Clinisync Result Encounter [facility] External Department Unsolicited [...] Procedure Name Priority Date/Time Associated Diagnosis Comments CA ECHO DOPPLER COMPLETE 05/22/2024 5:06 PM EST ALL TESTOSTERONE Routine 05/22/2024 8:39 AM EST documented in this encounter Results * CA ECHO DOPPLER COMPLETE (05/22/2024 5:06 PM EST) Anatomical Region Laterality Modality Other 05/22/2024 5:06 PM EST Narrative 05/22/2024 5:07 [place] [address] Cardiology Report Signed Patient: JUAN MIGUEL JENNINGS MR#: [id number] : 1950 Acct:[id number] Age/Sex: 74 / M ADM Date: 05/22/24 Loc: CARD Attending Dr: PAUL EWN APRN Ordering Physician: PAUL WEN APRN Date of Service: 05/22/24 Procedure(s): CA echo doppler complete Accession Number(s): [id number] cc: CELI WONG ; PAUL WEN APRN Patient Name: JUAN MIGUEL JENNINGS MR#: [id number] : 1950 Exam Date: 05/22/2024 Ordering Doctor: PAUL WEN CNP ECHOCARDIOGRAM REPORT PROCEDURE: CA ECHO DOPPLER COMPLETE INDICATIONS: Coronary artery disease COMPARISON: None. DESCRIPTION: COMPLETE ECHOCARDIOGRAM Real-time transthoracic echocardiography with 2D, M-mode, spectral and color flow Doppler performed. QUALITY: Technical quality was good. LEFT VENTRICLE: Normal chamber size. Moderate concentric left ventricular hypertrophy. LV EF: Global left ventricular systolic function is normal; visually estimated ejection fraction is 55 to 60%. Abnormal septal motion may be related to underlying bundle branch block. DIASTOLIC: Normal diastolic function. ATRIAL SEPTUM: Inadequately seen LEFT ATRIUM: Normal chamber size. RIGHT ATRIUM: Normal chamber size. RIGHT VENTRICLE: Normal chamber size. Normal right ventricular systolic function. TRICUSPID VALVE: Normal mobility and thickness. No stenosis with trivial regurgitation. No evidence of pulmonary hypertension. RVSP 29mmHg MITRAL VALVE: Normal mobility and thickness. No evidence of mitral valve stenosis. Mild mitral annular calcification. Trivial mitral regurgitation. AORTIC VALVE: Normal trileaflet appearance. No visible sclerosis. Normal leaflet mobility. No evidence of aortic valve stenosis. No aortic regurgitation. AORTIC ROOT: Normal diameter and appearance. PULMONIC VALVE: Normal thickness and mobility. No stenosis. Trivial regurgitation. PERICARDIUM: Anterior free space; trivial effusion versus fat pad IVC: Collapses with inspirations. Normal size. CONCLUSION: 1. Global left ventricular systolic function is normal; visually estimated ejection fraction is 55 to 60% 2. Normal right ventricular size and systolic function 3. Moderate left ventricular hypertrophy 4. Normal diastolic function 5. The left atrium is normal in size 6. No significant valvular abnormalities 7. Anterior free space; trivial effusion versus fat pad Adult Echocardiography Procedure Report Left Ventricle LVEDD (3.7 - 5.6 cm): 4.50 cm LVESD (2.2 - 4.0 cm): 3.00 cm LVIVS thickness (0.6 - 1.2 cm): 1.23 cm LVPW thickness (0.5 - 1.0 cm): 1.34 cm e': 0.08 m/s E - e': 10.58 LVOT Max Gradient: 3.04 mm[Hg] LVOT Area (cm2): 0.87 m/s Peak Velocity (LVOT): 0.87 m/s Mean Velocity (LVOT): 0.57 m/s LVOT Diameter 2.21 cm Left Ventricular Ejection Fraction: 53.89 % Left Atrium LA Volume Index (2D A2C): 31.42 ml/m2 Left Atrium Systolic Dimension: 4.04 cm Mitral Valve MV E to A Ratio: 0.86 Mitral Valve A-Wave Peak Velocity: 0.92 m/s Mitral Valve E-Wave Peak Velocity: 0.80 m/s Right Ventricle RV Internal Diastolic Dimension: 3.80 cm Aorta AO Root Diam: 3.53 cm Ascending Ao Diam: 3.47 cm Aortic Valve AoV Area (Peak Bradford): 3.31 cm2, 3.31 cm2 AoV Area (VTI): 2.84 cm2, 2.84 cm2 Peak Velocity(Antegrade Flow): 1.01 m/s Peak Gradient(Antegrade Flow): 4.12 mm[Hg] Mean Velocity(Antegrade Flow): 0.73 m/s Mean Gradient(Antegrade Flow): 2.45 mm[Hg] Velocity Time Integral: 25.68 cm Tricuspid Valve Peak Velocity (Regurgitant Flow): 2.36 m/s, 2.53 m/s, 2.13 m/s Pulmonic Valve Peak Velocity: 0.87 m/s Peak Gradient: 3.16 mm[Hg], 2.91 mm[Hg] Right Atrium Right Atrium Systolic Pressure: 92.86 ml, 92.86 ml Dictated by: Nicola Diego M.D. on 05/22/2024 at 17:02 Approved by: Nicola Diego M.D. on 05/22/2024 at 17:06 Dictated By: Nicola Diego M.D. Signed By: 05/22/241706 DD/ 05 TD/TT: Sales Representative Public Utilities: Procedure Note Radiology, Radiologist, MD - 05/22/2024 [place] [address] Cardiology Report Signed Patient: JUAN MIGUEL JENNINGS JMR#: [id number] : 1950cct:[id number] Age/Sex: 74 / MADM Date: 05/22/24 Loc: CARD Attending Dr: PAUL WEN APRN Ordering Physician: PAUL WEN APRN Date of Service: 05/22/24 Procedure(s): CA echo doppler complete Accession Number(s): [id number] cc: CELI WONG ; PAUL WEN APRN Patient Name: JUAN MIGUEL JENNINGS MR#: [id number] : 1950 Exam Date: 05/22/2024 Ordering Doctor: PAUL WEN [facility] ECHOCARD[facility]GRAM REPORT PROCEDURE: CA ECHO DOPPLER COMPLETE INDICATIONS: Coronary artery disease COMPARISON: None. DESCRIPTION: COMPLETE ECHOCARDIOGRAM Real-time transthoracic echocardiography with 2D, M-mode, spectral and color flow Dopplerperformed. QUALITY: Technical quality was good. LEFT VENTRICLE: Normal chamber size. Moderate concentric leftventricular hypertrophy. LV EF: Global left ventricular systolic function is normal; visually estimated ejection fraction is 55 to 60%. Abnormal septal motion may be related to underlying bundle branch block. DIASTOLIC: Normal diastolic function. ATRIAL SEPTUM: Inadequately seen LEFT ATRIUM: Normal chamber size. RIGHT ATRIUM: Normal chamber size. RIGHT VENTRICLE: Normal chamber size. Normal right ventricularsystolic function. TRICUSPID VALVE: Normal mobility and thickness. No stenosis withtrivial regurgitation. No evidence of pulmonary hypertension. RVSP 29mmHg MITRAL VALVE: Normal mobility and thickness. No evidence of mitralvalve stenosis. Mild mitral annular calcification. Trivial mitralregurgitation. AORTIC VALVE: Normal trileaflet appearance. No visible sclerosis.Normal leaflet mobility. No evidence of aortic valve stenosis. No aortic regurgitation. AORTIC ROOT: Normal diameter and appearance. PULMONIC VALVE: Normal thickness and mobility. No stenosis. Trivial regurgitation. PERICARDIUM: Anterior free space; trivial effusion versus fat pad IVC: Collapses with inspirations. Normal size. CONCLUSION: 1. Global left ventricular systolic function is normal; visually estimated ejection fraction is 55 to 60% 2. Normal right ventricular size and systolic function 3. Moderate left ventricular hypertrophy 4. Normal diastolic function 5. The left atrium is normal in size 6. No significant valvular abnormalities 7. Anterior free space; trivial effusion versus fat pad Adult Echocardiography Procedure Report Left Ventricle LVEDD (3.7 - 5.6 cm): 4.50 cm LVESD (2.2 - 4.0 cm): 3.00 cm LVIVS thickness (0.6 - 1.2 cm): 1.23 cm LVPW thickness (0.5 - 1.0 cm): 1.34 cm e': 0.08 m/s E - e': 10.58 LVOT Max Gradient: 3.04 mm[Hg] LVOT Area (cm2): 0.87 m/s Peak Velocity (LVOT): 0.87 m/s Mean Velocity (LVOT): 0.57 m/s LVOT Diameter 2.21 cm Left Ventricular Ejection Fraction: 53.89 % Left Atrium LA Volume Index (2D A2C): 31.42 ml/m2 Left Atrium Systolic Dimension: 4.04 cm Mitral Valve MV E to A Ratio: 0.86 Mitral Valve A-Wave Peak Velocity: 0.92 m/s Mitral Valve E-Wave Peak Velocity: 0.80 m/s Right Ventricle RV Internal Diastolic Dimension: 3.80 cm Aorta AO Root Diam: 3.53 cm Ascending Ao Diam: 3.47 cm Aortic Valve AoV Area (Peak Bradford): 3.31 cm2, 3.31 cm2 AoV Area (VTI): 2.84 cm2, 2.84 cm2 Peak Velocity(Antegrade Flow): 1.01 m/s Peak Gradient(Antegrade Flow): 4.12 mm[Hg] Mean Velocity(Antegrade Flow): 0.73 m/s Mean Gradient(Antegrade Flow): 2.45 mm[Hg] Velocity Time Integral: 25.68 cm Tricuspid Valve Peak Velocity (Regurgitant Flow): 2.36 m/s, 2.53 m/s, 2.13 m/s Pulmonic Valve Peak Velocity: 0.87 m/s Peak Gradient: 3.16 mm[Hg], 2.91 mm[Hg] Right Atrium Right Atrium Systolic Pressure: 92.86 ml, 92.86 ml Dictated by: Nicola Diego M.D. on 05/22/2024 at 17:02 Approved by: Nicola Diego M.D. on 05/22/2024 at 17:06 Dictated By: Nicola Diego M.D. Signed By:05/22/241706 DD/ 05 TD/TT: Sales Representative Public Utilities: [facility] External Data Provider [facility] Final Result * (ABNORMAL) ALL TESTOSTERONE (05/22/2024 8:39 AM EST) [facility] TESTOSTERONE 91(A) 264 - 916 ng/dL [facility] Comment: Adult male reference interval is based on a population of healthy nonobese males (BMI <30) between 19 and 39 years old. bubba Fleming.al. JCEM 2017,102;7465-5021. PMID: [id number]. Performed at: [address] [id number] Food Operations Manager: Zeke Almaguer PhD, Phone: [phone] 05/22/2024 8:39 AM EST 05/22/2024 8:40 AM EST Narrative [facility] - 05/23/2024 11:08 AM EST us Generic External Data Provider [facility] F inal Result Performing Organization Address City/State/[facility] Co de Phone Number [facility] documented in this encounter Visit Diagnoses Not on filedocumented in this encounter Additional Health Concerns Assessment Noted Time PHQ-9 Depression Total Score: 0 05/17/20 9:00 AM EST documented as of this encounter Care Teams Cloth Napping Supervisor Relationship Specialty Start Date End Date Celi Wong MD [address] [facility] 100 [place] [address] PCP - General Family Medicine 10/25/22 Celi Wong MD [address] [place] [address] PCP - ACO Reach 08/05/23 Mitch Mello MD [address] [place] [address] Referring Physician Cardiology 05/17/23 07/24/24 Jr. Julio Henson DO [address] [place] [address] Referring Physician Orthopaedic Surgery 05/17/23 Alberto Ibrahim DPM [address] [place], [place] [address] Referring Physician Podiatry 05/17/23 Julio Huddleston MD [address] [place] [address] Referring Physician Family Medicine 07/25/24 Hudson Stevenson MD [address] [id number] Referring Physician Urology 07/25/24 Kitty Edmond OD [address] [place] [address] Referring Physician Optometry 07/25/24 documented as of this encounter
--- OUTSIDE RECORDS SUMMARY | 2024-10-31 09:36 | XMS_ITS | Encounter Summary ---
Author Organization [facility] Address [address] [facility] [place] [address] Care Team Providers Care First Coat Operator Name Role Phone Jordan Wong MD Primary Care Provider Mitch Mello MD Unavailable Jr. Julio Henson DO Unavailable Alberto Ibrahim DPM Unavailable [phone] Jordan Wong MD Unavailable [phone] Julio Huddleston MD Unavailable [phone] Hudson Stevenson MD Unavailable Kitty Edmond OD Unavailable Encounter Details Date Type Department Care Team (Late st Contact Info) Description 05/21/2024 Abstract [facility] [address] [place] [address] Alberto Ibrahim, DPM [address] [place], [place] [id number] Social History Tobacco Use Types Packs/Day Years [...] documented as of this encounter Care Teams First Coat Operator Relationship Specialty Start Date End Date Jordan Wong MD 112 [facility] 100 [place] [address] PCP - General Family Medicine 10/25/22 Jordan Wong MD 112 [facility] 100 [place] [address] PCP - ACO Reach 08/05/23 Mitch Mello MD [address] [place] [address] Referring Physician Cardiology 05/17/23 07/24/24 Jr. Julio Henson DO 112 [facility] 150 [place] [address] Referring Physician Orthopaedic Surgery 05/17/23 Alberto Ibrahim DPM [address] [place] [address] Referring Physician Podiatry 05/17/23 Julio Huddleston MD [address] [place] [address] Referring Physician Family Medicine 07/25/24 Hudson Stevenson MD [address] [place] [address] Referring Physician Urology 07/25/24 Kitty Edmond OD [address] [facility] [place] [address] Referring Physician Optometry 07/25/24 documented as of this encounter
--- OUTSIDE RECORDS SUMMARY | 2024-10-31 09:36 | XMS_ITS | Encounter Summary ---
Author Organization [facility] Address [address] [facility] [place] [address] Care Team Providers Care Bottom Wheeler Name Role Phone Jordan Wong MD Primary Care Provider Jr. Julio Henson DO Unavailable [phone] Alberto Ibrahim DPM Unavailable Jordan Wong MD Unavailable Julio Huddleston MD Unavailable Hudson Stevenson MD Unavailable [phone] Kitty Edmond OD Unavailable Encounter Details Date Type Department Care Team (Late st Contact Info) Description 10/18/2024 Telephone [facility] [address] [place] [address] Jordan Wong MD [address] [place], [place] [id number] Social History Tobacco Use Types Packs/Day Years [...] on file documented as of this encounter Miscellaneous Notes * Telephone Encounter - Jordan Wong MD - 10/18/2024 12:45 PM EDT Reviewed in prescription sent. * Telephone Encounter - Laisha Castaneda - 10/18/2024 10:38 AM EDT Bret called needing a couple refills and to report how many gabapentin he is taking. He states he takes 1 am 2 afternoo and 2 pm, so 5 a day. He is requesting refills for gabapentin (Neurontin) 100 MG capsule 90 day supply, famotidine (Pepcid) 20 MG tablet And cyclobenzaprine (Flexeril) 10 MG . He states he only uses the Flexeril as needed and has not had it refilled in awhile and his RX is . He is asking for these to go to [facility] in [place]. documented in this encounter Plan of Treatment Not on file documented as of this encounter Visit Diagnoses Diagnosis Lumbar paraspinal muscle spasm Other symptoms referable to back Dyspepsia Dyspepsia and other specified disorders of function of stomach Type 2 diabetes mellitus with diabetic polyneuropathy, without long-term current use of insulin ([facility]) documented in this encounter Additional Health Concerns Assessment Noted Time PHQ-9 Depression Total Score: 2 07/25/19 25 9:00 AM EST documented as of this encounter Care Teams Bottom Wheeler Relationship Specialty Start Date End Date Jordan Wong MD [address] [place] [address] PCP - General Family Medicine 10/25/22 Jordan Wong MD [address] [place] [address] PCP - ACO Reach 08/05/23 Jr. Julio Henson DO [address] [place] [address] Referring Physician Orthopaedic Surgery 05/17/23 Alberto Ibrahim DPM 1900 [place] [address] Referring Physician Podiatry 05/17/23 Julio Huddleston MD [address] [place] [address] Referring Physician Family Medicine 07/25/24 Hudson Stevenson MD [address] [place] [address] Referring Physician Urology 07/25/24 Kitty Edmond OD [facility] [place] [address] Referring Physician Optometry 07/25/24 documented as of this encounter
--- OUTSIDE RECORDS SUMMARY | 2024-10-31 09:36 | XMS_ITS | Encounter Summary ---
Author Organization [facility] Address [address] [place] [address] Care Team Providers Care Loader Engineer Name Role Phone Jordan Wong MD Primary Care Provider [phone] Mitch Mello MD Unavailable [phone] Jr. Julio Henson DO Unavailable Alberto Ibrahim DPM Unavailable Jordan Wong MD Unavailable Julio Huddleston MD Unavailable [phone] Hudson Stevenson MD Unavailable [phone] Kitty Edmond OD Unavailable Encounter Details Date Type Department Care Team (Late st Contact Info) Description 05/03/2023 Orders Only [facility] [address] [place] [address] Newton Stevenson MD [address] [place], [place] [address] Social History Tobacco Use Types Packs/Day Years [...] Name Priority Date/Time Associated Diagnosis Comments CBC (INCLUDES DIFF/PLT) Routine 04/26/20 9:58 AM EST COMPREHENSIVE METABOLIC PANEL Routine 04/26/2023 9:58 AM EST documented in this encounter Results * Comprehensive metabolic panel (04/26/2023 9:58 AM EST) Blood Venous blood specimen / Unknown Newton Stevenson MD LAB BLOOD ORDERABLES Leonora l Result * CBC and differential (04/26/2023 9:58 AM EST) Blood Venous blood specimen / Unknown Newton Stevenson MD LAB BLOOD ORDERABLES Leonora l Result documented in this encounter Visit Diagnoses Not on filedocumented in this encounter Care Teams Loader Engineer Relationship Specialty Start Date End Date Jordan Wong MD [address] [address] PCP - General Family Medicine 10/25/22 Jordan Wong MD [address] [address] PCP - ACO Reach 08/05/23 Mitch Mello MD [address] [place], [place] [phone] Referring Physician Cardiology 05/17/23 07/24/24 Jr. Julio Henson DO [address] [facility] 150 [place] [address] Referring Physician Orthopaedic Surgery 05/17/23 Alberto Ibrahim DPM [address] [facility] [place] [address] Referring Physician Podiatry 05/17/23 Julio Huddleston MD [address] [place] [address] Referring Physician Family Medicine 07/25/24 Hudson Stevenson MD [address] [place], [place] [address] Referring Physician Urology 07/25/[address] [facility] [place] [address] Referring Physician Optometry 07/25/24 documented as of this encounter
--- OUTSIDE RECORDS SUMMARY | 2024-10-31 09:36 | XMS_ITS | Encounter Summary ---
Author Organization [facility] Address [address] [place] [address] Care Team Providers Care Embalmer Assistant Name Role Phone Jordan Wong MD Primary Care Provider Mitch Mello MD Unavailable Jr. Julio Henson DO Unavailable [phone] Alberto Ibrahim DPM Unavailable Jordan Wong MD Unavailable Julio Huddleston MD Unavailable [phone] Hudson Stevenson MD Unavailable [phone] Kitty Edmond OD Unavailable Encounter Details Date Type Department Care Team (Late st Contact Info) Description 04/14/2023 Orders Only [facility] [address] [place] [address] Julio Huddleston MD [address] [place] [address] Social History Tobacco Use Types Packs/Day Years [...] Procedure Name Priority Date/Time Associated Diagnosis Comments LIPID PANEL Routine 04/13/2023 9:44 AM EST documented in this encounter Results * Lipid panel (04/13/2023 9:44 AM EST) Blood Venous blood specimen / Unknown Julio Huddleston MD LAB BLOOD ORDERABLES Final R esult documented in this encounter Visit Diagnoses Not on filedocumented in this encounter Care Teams Embalmer Assistant Relationship Specialty Start Date End Date Jordan Wong MD 112 [facility] 100 [place] [address] PCP - General Family Medicine 10/25/22 Jordan Wong MD 112 [facility] 100 [place] [address] PCP - ACO Reach 08/05/23 Mitch Mello MD 1100 [place] [address] Referring Physician Cardiology 05/17/23 07/24/24 Jr. Julio Henson DO [address] [address] Referring Physician Orthopaedic Surgery 05/17/23 Alberto Ibrahim DPM 1900 [facility] [place] [address] Referring Physician Podiatry 05/17/23 Julio Huddleston MD [address] [place] [address] Referring Physician Family Medicine 07/25/24 Hudson Stevenson MD [address] [place] [address] Referring Physician Urology 07/25/24 Kitty Edmond OD 2[address] [facility] [place] [address] Referring Physician Optometry 07/25/24 documented as of this encounter
--- OUTSIDE RECORDS SUMMARY | 2024-10-31 09:36 | XMS_ITS | Clinical Summary ---
Author Organization [facility] Address [address] [place] [address] Care Team Providers Care Senior Software Qa Engineer Name Role Phone Jordan Wong MD Primary Care Provider [phone] Allergies Active Allergy Reactions Criticality Noted Date [...] or chew. 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 with unspecified severity 01/11/2023 04/08/2023 Nocturia 01/11/2023 04/08/2023 Urinary urgency 01/11/2023 04/08/2023 Urinary frequency 01/11/2023 04/08/2023 Polyneuropathy due to type 2 diabetes mellitus 0 08/17/2021 04/08/2023 Status post total left knee replacement 06/03/20 21 04/08/2023 Difficulty walking 05/26/2021 04/08/2023 Presence of both [...] myocardial infarction 02/09/20182022 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 Former smoker 07/13/2017 04/08/2023 Atherosclerosis of coronary [...] Polycythemia 04/05/2014 04/08/2023 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 04/08/2023 Encounters Date Type Department Care Team Description 09/07/2024 Orders Only [facility] at [address] [address] Rekha, JENNY Akins Mixed hyperlipidemia; Coronary artery disease, unspecified vessel or lesion type, unspecified whether angina present, unspecified whether [place] or transplanted heart from Last 3 Months Immunizations Name Administration Dates Next Due Influenza, High Dose Seasona l, Preservative Free 03/05/2019,03/03/2018 Influenza, Seasonal, Quadriv alent, Adjuvanted 05/06/2021,03/22/2020 Influenza, Unspecified 03/06/2016 Influenza, injectable, quadr ivalent, preservative free 04/06/2017,01/23/2016 Influenza, seasonal, injectable 03/23/2014,04/06 Novel [id number], preservative-free 04/21 Pneumococcal Conjugate PCV 13 03/03/2018 Pneumococcal Polysaccharide PPV23 03/05/2019,06/2016 Unspecified Sars-Cov-2 Vaccination 06/18/2021,,08/08/2020 Zoster, live 12/04/2016,04/06/2013 Family History Medical History Relation Name Comments Heart disease Father Heart disease Mother Relation Name Status Comments Father Mother Social History Tobacco Use Types Packs/Day Years [...] 07/16/2024 9:15 AM EST Plan of Treatment Health Maintenance Due Date Last Done Comments CT Colonography 1950 FIT-DNA 1950 FIT 1950 FOBT 1950 Medicare Annual Wellness (AWV) 1950 Sigmoidoscopy 1950 Diabetes: Retinopathy Screening 02/10/1962 Depression Screening 1964 Adult Tetanus 02/10/1974 Zoster Vaccines (1 of 2) 02/10/2002 12/04/2016, 06/2012 Fall Risk Screening 02/10/2017 COVID-19 Vaccine ( season) 2024 03/23/2022, 03/23/2022, 03/23/2022, Additional history exists Diabetes: Hemoglobin A1C 06/21/2024 03/21/2024, 11/0 01/2023 Colonoscopy 12/17/2030 12/17/2020 Colorectal Cancer Screening 12/17/2030 Pneumococcal Vaccine: 65+ Years Completed 03/06/2019, 03/05/2019, 03/03/2018, Additional history exists Influenza Vaccine Completed 03/28/2024, , 04/16/2022, Additional history exists HIB Vaccines Aged Out No longer eligi ble based on patient's age to complete this topic HPV Vaccines Aged Out No longer eligi ble based on patient's age to complete this topic IPV Vaccines Aged Out No longer eligi ble based on patient's age to complete this topic Meningococcal B Vaccine Aged Out No l onger eligible based on patient's age to complete this topic Meningococcal Vaccine Aged Out No carmen lexi eligible based on patient's age to complete this topic Rotavirus Vaccines Aged Out No longer eligible based on patient's age to complete this topic Care Teams Senior Software Qa Engineer Relationship Specialty Start Date End Date Jordan Wong MD [address] [facility] [place] [address] PCP - General 03/23/22
--- OUTSIDE RECORDS SUMMARY | 2024-10-31 09:36 | XMS_ITS | Encounter Summary ---
Author Organization [facility] Address [address] [place] [address] Care Team Providers Care 411 Directory Assistance Operator Name Role Phone Jordan Wong MD Primary Care Provider [phone] Mitch Mello MD Unavailable Jr. Julio Henson DO Unavailable Alberto Ibrahim DPM Unavailable Jordan Wong MD Unavailable Julio Huddleston MD Unavailable Hudson Stevenson MD Unavailable Kitty Edmond OD Unavailable Encounter Details Date Type Department Care Team (Late st Contact Info) Description 09/30/2023 Orders Only [facility] [address] [place] [address] Kitty Edmond, OD [address] [place] [address] Social History Tobacco Use Types Packs/Day Years [...] Procedure Name Priority Date/Time Associated Diagnosis Comments DIABETIC RETINOPATHY SCREENING - OU - BOTH EYES Routine 09/30/2023 9:57 AM EDT documented in this encounter Results * Diabetic Retinopathy Screening - OU - Both Eyes (09/30/2023 9:57 AM EDT) Anatomical Region Laterality Modality Head Other Kitty Edmond OD OPHTH PHOTOGRAPHY Final Result documented in this encounter Visit Diagnoses Not on filedocumented in this encounter Additional Health Concerns Assessment Noted Time PHQ-9 Depression Total Score: 0 05/17/20 9:00 AM EST documented as of this encounter Care Teams 411 Directory Assistance Operator Relationship Specialty Start Date End Date Jordan Wong MD [address] [address] PCP - General Family Medicine 10/25/22 Jordan Wong MD [address] [address] PCP - ACO Reach 08/05/23 Mitch Mello MD [address] [place], [place] [address] Referring Physician Cardiology 05/17/23 07/24/24 Jr. Julio Henson DO [address] [place] [address] Referring Physician Orthopaedic Surgery 05/17/23 Alberto Ibrahim DPM [address] [place] [address] Referring Physician Podiatry 05/17/23 Julio Huddleston MD [address] [place] [address] Referring Physician Family Medicine 07/25/24 Hudson Stevenson MD [address] [place] [address] Referring Physician Urology 07/25/24 Kitty Edmond OD [address] [facility] [place] [address] Referring Physician Optometry 07/25/24 documented as of this encounter
--- OUTSIDE RECORDS SUMMARY | 2024-10-31 09:36 | XMS_ITS | Clinical Summary ---
Author Organization [facility] Address [address] [place] [address] Care Team Providers Care Campground Manager Name Role Phone Jordan Wong MD Primary Care Provider Allergies Active Allergy Reactions Criticality Noted Date Comments Clindamycin Hcl 08/31/2021 Other reaction(s): nausea diarrhea Glipizide Diarrhea 08/31/2021 Metformin Diarrhea 08/31/2021 Pravastatin 08/31/2021 Other reaction(s): abdominal pain Rosuvastatin 08/31/2021 Other reaction(s): abdominal pain Medications metoprolol succinate (TOPROL XL) 50 MG extended release tablet Take 1 tablet by mouth nightly 100mg in the am, 50mg in the pm Active BABY ASPIRIN PO Take 81 mg by mouth daily. Active Cholecalciferol (VITAMIN D3) 50 MCG (1999 UT) TABS Take by mouth daily Active pioglitazone (ACTOS) 30 MG tablet Take 1 tablet by mouth daily Active timolol (TIMOPTIC-XE) 0.5 % ophthalmic gel-forming Place 1 drop into both eyes daily 3 4 Active brinzolamide-br imonidine 1-0.2 % SUSP Apply to eye 3 times daily Active oxybutynin (DITROPAN-XL) 5 MG extended release tablet Take 1 tablet by mouth daily 6 8 Active testosterone cypionate (DEPOTESTOTERON E CYPIONATE) 200 MG/ML injection Inject 1 mL into the muscle. Once a month 4 8 Active latanoprost (XALATAN) 0.005 % ophthalmic solution INSTILL 1 DROP INTO AFFECTED EYE(S) BY OPHTHALMIC ROUTE ONCE DAILY IN THE EVENING 2 9 Active losartan (COZAAR) 50 MG tablet TAKE 1 TABLET BY MOUTH EVERY DAY FOR 90 DAYS 2 Active RHOPRESSA 0.02 % SOLN PLACE 1 DROP INTO LEFT EYE EVERYDAY 2 Active niacin 500 MG tablet Take 1 tablet by mouth daily Active Multiple Vitamin (MULTIVITAMIN ADULT PO) Take by mouth Active tamsulosin (FLOMAX) 0.4 MG capsule Take 1 capsule by mouth daily 3 Active famotidine (PEPCID) 20 MG tablet Take 1 tablet by mouth 2 times daily Active cyclobenzaprine (FLEXERIL) 10 MG tablet Take 1 tablet by mouth 4 Active diclofenac (VOLTAREN) 75 MG EC tablet Refills(s) 0 4 Active metoprolol (LOPRESSOR) 100 MG tablet Take 1 tablet by mouth every morning Active gabapentin (NEURONTIN) 100 MG capsule Take 1 capsule by mouth 4 times daily. 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 kabour) 05/13 S/P cardiac cath-05/13/14-Dr. 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 Resolved Problems Problem Noted Date Diagnosed Date Resolved Date Screening for colorectal cancer 02/12/2014 04/03/2018 Encounters Date Type Department Care Team Description 10/17/2024 1:00 PM EDT Office Visit [facility] Part of [address] [address] Newton Stein MD Anal cancer (HCC) (Primary Dx); Polycythemia 08/10/2024 Orders Only [facility] Part of [address] [address] Willi Sanchez MD from Last 3 Months Immunizations Immunization Administration Dates Next Due Influenza Vaccine, unspecified formulation 03/06 Family History Medical History Relation Name Comments Heart Disease Brother Heart Disease Mother Relation Name Status Comments Brother Alive Father Mother Alive Social History Tobacco Use Types Packs/Day Years Used Date Smoking Tobacco: Former Cigarettes 1 20 0 08/31/1979 - 08/31/1999 Smokeless Tobacco: Never Tobacco Cessation:Counseling Given: Not Answered Comments:quit smoking in 1999 Alcohol Use Standard Drinks/Week Comments No 0 [...] 18 10/17/2024 1:29 PM EDT Oxygen Saturation 94% 09/03/2016 12:55 PM EDT Inhaled Oxygen Concentration - - Weight 159.2 kg (351 lb) 10/17/2024 1:29 PM EDT Height 198.1 cm (6' 6 ) 11/09/2023 1:22 PM EDT Body Mass Index 40.56 11/09/2023 1:22 PM EDT Plan of Treatment Upcoming Encounters Date Type Department Care Team (Late st Contact Info) Description 02/22/2025 1:00 PM EDT [facility]ment [facility] [address] [place] [address] phlebotomy Health Maintenance Due Date Last Done Comments Diabetic foot exam 02/10/1962 Lipids 02/10/1962 Depression Screen 1964 Diabetic Alb to Cr ratio (uACR) test 02/10/1970 Diabetic retinal exam 02/10/1970 Hepatitis C screen 02/10/1970 DTaP/Tdap/Td vaccine (1 - Tdap) 02/10/1971 Colonoscopy 02/10/1997 Colorectal Cancer Screen 02/10/1997 FIT/FOBT: Average risk 02/10/1997 Fecal-DNA (Cologuard): Average risk 02/10/1997 Sigmoidoscopy/CT colonography 02/10/1997 Respiratory Syncytial Virus (RSV) or age 60 yrs+ (1 - Risk 60-74 years 1-dose series) 2012 Shingles vaccine (2 of 3) 01/29/20172016, 04/06/2013, 04/05/2013 A1C test (Diabetic or Prediabetic) 08/04/2017 08/04/2016 Annual Wellness Visit (Medicare) 05/02/2023 COVID-19 Vaccine ( season) 2024 03/23/2022, 06/18/2021, 08/28/2020, Additional history exists GFR test (Diabetes, CKD 3-4, OR last GFR 15-59) 02/21/2025 02/22/2024, 10/25/2023, 04/26/2023, Additional history exists Prostate Specific Antigen (PSA) Screening or Monitoring Discontinued 10/13/2018 Pneumococcal 50+ years Vaccine Completed 03/06/2019, 03/05/2019, 03/04/2019, Additional history exists AAA screen Completed 07/28/2020, 04/06, 02/29/2012 Flu vaccine Completed 03/28/2024, 02/05, 04/16/2022, Additional history exists Hepatitis A vaccine Aged Out No longe r eligible based on patient's age to complete this topic Hepatitis B vaccine Aged Out No longe r eligible based on patient's age to complete this topic Hib vaccine Aged Out No longer eligi ble based on patient's age to complete this topic Meningococcal (ACWY) vaccine Aged Out No longer eligible based on patient's age to complete this topic Meningococcal B vaccine Aged Out No l onger eligible based on patient's age to complete this topic Polio vaccine Aged Out No longer elig ible based on patient's age to complete this topic Procedures Procedure Name Priority Date/Time Associated Diagnosis Comments PSA 3RD GENERATION Routine 10/13/2018 9: 50 AM EDT COMPREHENSIVE METABOLIC PANEL Routine 08/17/2016 11:00 AM EDT HEMOGLOBIN A1C Routine 08/04/2016 7:05 PM EST US ABDOMEN LIMITED Routine 04/15/2014 8: 53 AM EST from Last 3 Months or Most Recently Relevant to Health Maintenance Results * PSA 3rd Generation (10/13/2018 9:50 AM EDT) Pathologist [facility] PSA, Ultrasensitive 0.11 0.00 - 4.00 ng/mL -[facility] Comment: Performed at [facility] [address] [place] [address] Pathology [employer] [address] [place] [address] CLIA No. [id number] CAP Accreditation No. [id number] Glycerine Plant Operator: Clint Tamez M.D. 10/13/2018 9:50 AM EDT 10/13/2018 11:25 AM EDT Narrative -[facility] - 10/14/2018 2:14 AM EDT Ordering Provider: WILLI SANCHEZ Willi Sanchez MD CHEMISTRY ORDERABLES Final Result -[facility] * (ABNORMAL) Hemoglobin A1c (08/04/2016 7:05 PM EST) Pathologist [facility] Hemoglobin A1C 6.1(H) 4.8 - 5.9 % 08/04/2016 11:12 PM EST [facility] Estimated Avg Glucose 128 mg/dL 08/04/2016 11:12 PM EST [facility] Comment: The ADA and AACC recommend providing the estimated average glucose result to permit better patient understanding of their HBA1c result. Performed at [address] [place] [address] ([phone] BLOOD SPECIMEN / Unknown 08/04/2016 7:05 PM EST 08/04/2016 10:33 PM EST us Elton Dawson MD CHEMISTRY ORDERABLES Final Resu lt [facility] [address] [phone] [facility] * US ABDOMINAL LIMITED (04/15/2014 8:53 AM EST) Anatomical Region Laterality Modality Abdomen Other 04/15/2014 8:53 AM EST Narrative 04/15/2014 9:13 AM EST FINAL Procedure: [facility] Apr 15 2014 8:53AM [id number] US ABD LIMITED Reason for Exam: ^polycythemia, LIVER/ SPLEEN US FULL RESULT: ULTRASOUND ABDOMEN TECHNIQUE: High resolution sonographic evaluation of the abdomen performed. INDICATION: Polycythemia FINDINGS: The liver is normal in size and contour. The liver is increased in echogenicity typical of fatty infiltration. Gallbladder is normal in size and contour. No gallbladder wall thickening, pericholecystic fluid or cholelithiasis. No intra-or extrahepatic biliary ductal dilation. Common bile duct is normal in size at 4 mm. Pancreas is mostly obscured by bowel gas. Normal renal cortical thickness and echogenicity in both kidneys. Neither kidney is well visualized but there is no hydronephrosis or mass lesion seen. The spleen is normal in size and contour and is similar in size to prior CT 02/29/2012. IMPRESSION: 1. Fatty infiltration of the liver 2. Spleen is within normal limits of size 3. Limited evaluation of the kidneys reveals no hydronephrosis Report Transcribed by: [facility] on Apr 15 2014 9:13A Read by: CHAPIN BAUTISTA M.D. [id number] on Apr 15 2014 9:13A Electronically Signed by: DR. CHAPIN BAUTISTA M.D. on: Apr 15 2014 9:13A Procedure Note Chapin Bautista MD - 04/15/2014 FINAL Procedure: [facility] Apr 15 2014 8:53AM [id number] US ABD LIMITED Reason for Exam: ^polycythemia, LIVER/ SPLEEN US FULL RESULT: ULTRASOUND ABDOMEN TECHNIQUE: High resolution sonographic evaluation of the abdomen performed. INDICATION: Polycythemia FINDINGS: The liver is normal in size and contour. The liver is increased in echogenicity typical of fatty infiltration. Gallbladder is normal in size and contour. No gallbladder wall thickening, pericholecystic fluid or cholelithiasis. No intra-or extrahepatic biliary ductal dilation. Common bile duct is normal in size at 4 mm. Pancreas is mostly obscured by bowel gas. Normal renal cortical thickness and echogenicity in both kidneys. Neither kidney is well visualized but there is no hydronephrosis or mass lesion seen. The spleen is normal in size and contour and is similar in size to prior CT 02/29/2012. IMPRESSION: 1. Fatty infiltration of the liver 2. Spleen is within normal limits of size 3. Limited evaluation of the kidneys reveals no hydronephrosis Report Transcribed by: [facility] on Apr 15 2014 9:13A Read by: CHAPIN BAUTISTA M.D. [id number] on Apr 15 2014 9:13A Electronically Signed by: DR. CHAPIN BAUTISTA M.D. on: Apr 15 2014 9:13A Gilda Conner MD [facility] ORDERABLES Final Res ult from Last 3 Months or Most Recently Relevant to Health Maintenance Insurance MEDICARE [employer] MEDICARE SUPP Advance Directives Documents on File Type Date Recorded Patient Academic Department Chair Expl anation ACP-Power of Epidemiology Investigator 08/31/2013 9:46 AM ACP-Advance Directive 08/31/2013 9:46 AM * Full Code (Latest Code Status on File) Date Activated Date Inactivated Comments 08/06/2016 9:06 AM 08/09/2016 5:53 PM * Full Code Date Activated Date Inactivated Comments 08/04/2016 9:28 PM 08/06/2016 9:06 AM * Full Code Date Activated Date Inactivated Comments 05/15/2015 12:42 PM 05/19/2015 6:52 PM * Full Code Date Activated Date Inactivated Comments 05/12/2015 11:22 AM 05/15/2015 12:42 PM * Full Code Date Activated Date Inactivated Comments 05/13/2014 2:36 PM 05/13/2014 9:20 PM Care Teams Campground Manager Relationship Specialty Start Date End Date Jordan Wong MD PCP - General 07/25/19
--- OUTSIDE RECORDS SUMMARY | 2024-10-31 09:36 | XMS_ITS | Encounter Summary ---
Author Organization [facility] Address [address] [place] [address] Care Team Providers Care Prick Stitcher Name Role Phone Jordan Wong MD Primary Care Provider Mitch Mello MD Unavailable Jr. Julio Henson DO Unavailable [phone] Alberto Ibrahim DPM Unavailable [phone] Jordan Wong MD Unavailable Julio Huddleston MD Unavailable Hudson Stevenson MD Unavailable Kitty Edmond OD Unavailable Encounter Details Date Type Department Care Team (Late st Contact Info) Description 04/20/2023 Orders Only [facility] [address] [place] [address] Jordan Wong MD 112 [facility] [address] [place] [address] Social History Tobacco Use Types [...] on filedocumented in this encounter Care Teams Prick Stitcher Relationship Specialty Start Date End Date Jordan Wong MD 112 [facility] [address] [place] [address] PCP - General Family Medicine 10/25/22 Jordan Wong MD 112 [facility] [address] [place] [address] PCP - ACO Reach 08/05/23 Mitch Mello MD [address] [place] [address] Referring Physician Cardiology 05/17/23 07/24/24 Jr. Julio Henson DO [address] [place] [address] Referring Physician Orthopaedic Surgery 05/17/23 Alberto Ibrahim DPM [address] [place] [address] Referring Physician Podiatry 05/17/23 Julio Huddleston MD [address] [place] [address] Referring Physician Family Medicine 07/25/24 Hudson Stevenson MD [address] [place] [address] Referring Physician Urology 07/25/24 Kitty Edmond OD [address] [place] [address] Referring Physician Optometry 07/25/24 documented as of this encounter
== END 2024-10-31 09:33 | disposition home or self-care (01) ==
LOC: WC 09:32
PROVIDERS: PCP Family Medicine; Visit Provider Physician Assistant
DX: L84 Corns and callosities (principal); E11.40 Type 2 diabetes mellitus with diabetic neuropathy, unspecified; L89.892 Pressure ulcer of other site, stage 2
CPT/HCPCS: 11056

== ENCOUNTER 2024-11-15 14:05 | Outpatient (OUT) | payer MEDICARE, SELFPAY ==
--- OUTSIDE RECORDS SUMMARY | 2010-08-31 06:30 | XMS_ITS | Encounter Summary ---
Author Organization [facility] Address [address] [place] [address] Care Team Providers Care Chief Gauger Name Role Phone Unavailable Primary Care Provider Unavailabl e Encounter Details Date Type Department Care Team (Late Contact Info) Description 08/31/2010 6:30 AM EDT Hospital Encounter [facility] Department [address] [place] [address] Altaf Velázquez MD [address] [place] [address] Social History Tobacco Use Types Packs/Day [...] Info) Description 02/22/2025 1:00 PM EDT Appointment [facility] [address] [place] [address] phlebotomy documented as of this encounter Visit Diagnoses Not on filedocumented in this encounter
--- OUTSIDE RECORDS SUMMARY | 2013-08-17 02:10 | XMS_ITS | Encounter Summary ---
Author Organization [facility] Address [address] [place] [address] Care Team Providers Care Public Information Coordinator Name Role Phone Diego Bartlett MD Primary Care Provider Unavaildon e Encounter Details Date Type Department Care Team (Late st Contact Info) Description 08/17/2013 2:10 AM EDT Hospital Encounter MTH PRE ADMIT [address] [phone] Peewee Westfall, DPM [address] [place] [address] Social History Tobacco Use Types Packs/Day Years [...] Info) Description 02/22/2025 1:00 PM EDT Appointment [facility] [address] [place] [address] [phone] phlebotomy documented as of this encounter Procedures [...] 12 lead (08/17/2013 8:50 AM EDT) Pathologist [facility] Ventricular Rate 57 BPM [facility] Atrial Rate 57 BPM [facility] P-R Interval 174 ms [facility] QRS Duration 86 ms [facility] Q-T Interval 406 ms [facility] QTc Calculation (Bazett) 395 ms [facility] P [place]den 64 degrees [facility] R Oden 26 degrees [facility] T Oden 46 degrees [facility] 08/17/2013 8:50 AM EDT Narrative [facility] - 08/17/2013 6:59 PM EDT Sinus bradycardiaOtherwise normal ECGWhen compared with ECG of 05-OCT-2010 08:57,No significant change was found Procedure Note 08/17/2013 Sinus bradycardiaOtherwise normal ECGWhen compared with ECG of [id number],No significant change was found Peewee Westfall DPM ECG ORDERABLES Final Result [facility] * XR Chest Standard TWO VW (08/17/2013 8:50 AM EDT) Anatomical Region Laterality Modality Chest Radiographic Lynn ging 08/17/2013 8:50 AM EDT Narrative 08/17/2013 4:48 PM EDT FINAL Procedure: TRT Aug 17 2013 8:50AM [id number] CHEST PA AND LATERAL Reason for Exam: [...] Fish MD IMPRESSION: SEE ABOVE. Transcribed by: [facility] on Aug 17 2013 4:48P Read by: CHAPIN BAUTISTA M.D. [id number] on Aug 17 2013 11:15A Electronically Signed by: DR. CHAPIN BAUTISTA M.D. on: Aug 17 2013 4:48P Procedure Note Chapin Bautista MD - 08/17/2013 FINAL Procedure: TRT Aug 17 2013 8:50AM [id number] CHEST PA AND LATERAL Reason for Exam: [...] Fish MD IMPRESSION: SEE ABOVE. Transcribed by: [facility] on Aug 17 2013 4:48P Read by: CHAPIN BAUTISTA M.D. [id number] on Aug 17 2013 11:15A Electronically Signed by: DR. CHAPIN BAUTISTA M.D. on: Aug 17 2013 4:48P us Peewee Westfall DPM IMG DIAGNOSTIC IMAGING ORDERA BLES Edited Result - Final * (ABNORMAL) Urinalysis with microscopic (08/17/2013 8:28 AM EDT) Color, UA YELLOW YEL 08/17/2013 10:10 AM EDT [facility] Turbidity UA CLEAR CLEAR 08/17/2013 10:10 AM EDT [facility] Glucose, Ur NEGATIVE NEG 08/17/2013 10:10 AM EDT [facility] Bilirubin Urine NEGATIVE NEG 08/17/201 4 10:10 AM EDT [facility] Ketones, Urine NEGATIVE NEG 08/17/2013 10:10 AM EDT [facility] Specific Arion, UA >1.030(H) 1.010 - 1.020 08/17/2013 10:10 AM EDT [facility] Urine Hgb NEGATIVE NEG 08/17/2013 10:10 AM EDT [facility] pH, UA 6.0 5.0 - 9.0 08/17/2013 10:10 AM EDT [facility] Protein, UA NEGATIVE NEG 08/17/2013 10:10 AM EDT [facility] Urobilinogen, Urine Normal NORM 08/17/2013 10:10 AM EDT [facility] Nitrite, Urine NEGATIVE NEG 08/17/2013 10:10 AM EDT [facility] Leukocyte Esterase, Urine NEGATIVE NEG 08/17/2013 10:10 AM EDT [facility] Urinalysis Comments NOT REPORTED [facility] - 08/17/2013 10:10 AM EDT [facility] WBC, UA 0 TO 2 0 - 5 /HPF 08/17/2013 10:10 AM EDT [facility] RBC, UA None 0 - 2 /HPF 08/17/2013 10:10 AM EDT [facility] Casts UA NOT REPORTED 0 - 2 /LPF [facility] Crystals, UA NOT REPORTED NONE /HPF [facility] Epithelial Cells, UA 0 TO 2 0 - 25 /HPF 08/17/2013 10:10 AM EDT [facility] Comment: Performed at [address] [place], [place] [id number] Renal Epithelial, UA NOT REPORTED 0 /HPF [facility] Bacteria, UA NOT REPORTED NONE [facility] Mucus, UA NOT REPORTED NONE [facility] Trichomonas NOT REPORTED NONE [facility] Amorphous, UA NOT REPORTED NONE [facility] Other Observations UA NOT REPORTED NREQ [facility] Yeast, UA NOT REPORTED NONE [facility] URINE SPECIMEN / Unknown 08/17/2013 8:28 AM EDT 08/17/2013 8:29 AM EDT Peewee Westfall DPArin URINE ORDERABLES Final Result [facility] [address] [place] [id number] [phone] [facility] * (ABNORMAL) Basic Metabolic Panel (08/17/2013 8:28 AM EDT) Glucose 135(H) 70 - 99 mg/dL 08/17/2013 9:30 AM EDT [facility] BUN 16 8 - 23 mg/dL 08/17/2013 9:30 AM EDT [facility] Creatinine 0.73 0.70 - 1.20 mg/dL 08/17/2013 9:30 AM EDT [facility] BUN/Creatinine Ratio 22(H) 9 - 20 08/17/2013 9:30 AM EDT [facility] Calcium 9.7 8.6 - 10.0 mg/dL 08/17/2013 9:30 AM EDT [facility] Sodium 138 136 - 145 mmol/L 08/17/2013 9:30 AM EDT [facility] Potassium 4.5 3.5 - 5.1 mmol/L 08/17/2013 9:30 AM EDT [facility] Chloride 104 98 - 107 mmol/L 08/17/2013 9:30 AM EDT [facility] CO2 26 20 - 31 mmol/L 08/17/2013 9:30 AM EDT [facility] Anion Gap NOT REPORTED mmol/L [facility] GFR Non- >60 >60 mL/min 08/17/2013 9:30 AM EDT [facility] GFR >60 >60 mL/min 08/17/2013 9:30 AM EDT [facility] GFR Comment 08/17/2013 9:30 AM EDT [facility] Comment: Average GFR for 60-69 years old: 85 mL/min/1.73sq m Chronic Kidney Disease: <60 mL/min/1.73sq m Kidney failure: <15 mL/min/1.73sq m GFR Staging 08/17/2013 9:30 AM EDT [facility] Comment: Stage 1: Some kidney damage normal GFR Stage 2: Mild kidney damage GFR 60-89 Stage 3: Moderate kidney damage GFR 30-59 Stage 4: Severe kidney damage GFR 15-29 Stage 5: Severe kidney damage GFR <15 ESRD - chronic treatment by dialysis or transplant Performed at [address] [place] [address] BLOOD SPECIMEN / Unknown 08/17/2013 8:28 AM EDT 08/17/2013 8:29 AM EDT Peewee Westfall DPArin CHEMISTRY ORDERABLES Final Re sult [place] [id number] [phone] [facility] * (ABNORMAL) CBC (08/17/2013 8:28 AM EDT) WBC 8.5 3.5 - 11.0 k/uL 08/17/2013 9:13 AM EDT [facility] RBC 5.32 4.5 - 5.9 m/uL 08/17/2013 9:13 AM EDT [facility] Hemoglobin 16.6 13.5 - 17.0 g/dL 08/17/2013 9:13 AM EDT [facility] Hematocrit 49.3 41 - 53 % 08/17/2013 9:13 AM EDT [facility] MCV 92.6 80 - 100 fL 08/17/2013 9:13 AM EDT [facility] MCH 31.2 26 - 34 pg 08/17/2013 9:13 AM EDT [facility] MCHC 33.7 31 - 37 g/dL 08/17/2013 9:13 AM EDT [facility] RDW 14.5(H) 10.0 - 14.0 % 08/17/2013 9:13 AM EDT [facility] Platelets 184 140 - 450 k/uL 08/17/2013 9:13 AM EDT [facility] Comment: Performed at [address] [place] [address] MPV NOT REPORTED 6.0 - 12.0 fL [facility] BLOOD SPECIMEN / Unknown 08/17/2013 8:28 AM EDT 08/17/2013 8:29 AM EDT us Peewee Westfall DPM HEMATOLOGY ORDERABLES Final R esult [facility] [address] [place] [id number], [facility] [phone] [facility] documented in this encounter Visit Diagnoses Not on filedocumented in this encounter Care Teams Public Information Coordinator Relationship Specialty Start Date End Date Diego Bartlett MD PCP - General 05/10/11 07/24/19 documented as of this encounter
--- OUTSIDE RECORDS SUMMARY | 2015-04-11 02:26 | XMS_ITS | Encounter Summary ---
Author Organization [facility] Address [address] [address] Care Team Providers Care Hostel Parent Name Role Phone Diego Bartlett MD Primary Care Provider Yanet garcia Encounter Details Date Type Department Care Team (Late st Contact Info) Description 04/11/2015 1:26 AM EST Hospital Encounter MTH PRE ADMIT [address] [place], [place] [phone] Tiburcio Brennan MD [address] [place] [address] Social History Tobacco Use Types [...] Info) Description 02/22/2025 1:00 PM EDT Appointment [facility] [address] [place], [place] [phone] phlebotomy documented as of this encounter Procedures [...] 12 lead (04/11/2015 9:32 AM EST) Pathologist [facility] Ventricular Rate 77 BPM [facility] Atrial Rate 77 BPM [facility] P-R Interval 174 ms [facility] QRS Duration 80 ms [facility] Q-T Interval 360 ms [facility] QTc Calculation (Bazett) 407 ms [facility]IOLOGY P [place] 51 degrees [facility] R [place] 17 degrees [facility] T [place] 51 degrees [facility] 04/11/2015 9:32 AM EST Narrative [facility]IOLOG[facility] - 04/11/2015 3:49 PM EST Normal sinus rhythmPossible Inferior infarct , age undeterminedAbnormal ECGWhen compared with ECG of 24-OCT-2013 18:45,No significant change was found Procedure Note Result, Unknown Provider - 04/11/2015 Normal sinus rhythmPossible Inferior infarct , age undeterminedAbnormalECGWhen compared with ECG of 24-OCT-2013 18:45,No significant change wasfound us Tiburcio Brennan MD ECG ORDERABLES Final Result [facility] * XR Chest Standard [...] Culture Only (04/11/2015 8:50 AM EST) Pathologist [facility] Specimen Description .SUDHAKAR 04/11/2015 8:47 AM EST [facility] Special Requests NOT REPORTED 04/11/2015 8:47 AM EST [facility] Culture NEGATIVE FOR: METHICILLIN RESISTANT STAPHYLOCOCCUS AUREUS 04/14/2015 10:55 AM EST [facility] Culture Performed at [address] [place] [address] 04/14/2015 10:55 AM EST [facility] Culture 04/14/2015 10:55 AM EST [facility] Status FINAL 04/14/2015 04/14/20 15 10:55 AM EST [facility] ANTERIOR NARES SWAB / Unknown 04/11/2015 8:50 AM EST 04/11/2015 8:55 AM EST Tiburcio Brennan MD MICROBIOLOGY - GENERAL ORDERA BLES Final Result [facility] [address] [phone] [facility] * (ABNORMAL) Basic Metabolic Panel (04/11/2015 8:43 AM EST) Glucose 157(H) 70 - 99 mg/dL 04/11/2015 10:03 AM EST [facility] BUN 11 8 - 23 mg/dL 04/11/2015 10:03 AM EST [facility] Creatinine 0.74 0.70 - 1.20 mg/dL 04/11/2015 10:03 AM EST [facility] BUN/Creatinine Ratio 15 9 - 20 04/11/2015 10:03 AM EST [facility] Calcium 9.6 8.6 - 10.4 mg/dL 04/11/2015 10:03 AM EST [facility] Sodium 138 135 - 144 mmol/L 04/11/2015 10:03 AM EST [facility] Potassium 4.3 3.7 - 5.3 mmol/L 04/11/2015 10:03 AM EST [facility] Chloride 100 98 - 107 mmol/L 04/11/2015 10:03 AM EST [facility] CO2 25 20 - 31 mmol/L 04/11/2015 10:03 AM EST [facility] Anion Gap 13 9 - 17 mmol/L 04/11/2015 10:03 AM EST [facility] GFR Non- >60 >60 mL/min 04/11/2015 10:03 AM EST [facility] GFR >60 >60 mL/min 04/11/2015 10:03 AM EST [facility] GFR Comment 04/11/2015 10:03 AM EST [facility] Comment: Average GFR [...] treatment by dialysis or transplant Performed at [address] [place] [address] ([phone] BLOOD SPECIMEN / Unknown 04/11/2015 8:43 AM EST 04/11/2015 8:44 AM EST us Tiburcio Brennan MD CHEMISTRY ORDERABLES Final Re sult [facility] [address] [place] [address], [facility] [phone] [facility] * (ABNORMAL) CBC auto differential [...] REPORTED 6.0 - 12.0 fL [facility] Differential Type NOT REPORTED [facility] Seg Neutrophils 74(H) 36 - 66 [...] AM EST [facility] Comment: Performed at [address] [place] [address] ([phone] WBC Morphology NOT REPORTED [facility] RBC Morphology NOT REPORTED [facility] Platelet Estimate NOT REPORTED [facility] BLOOD SPECIMEN / Unknown 04/11/2015 8:43 AM EST 04/11/2015 8:44 AM EST us Tiburcio Brennan MD HEMATOLOGY ORDERABLES Final R esult [facility] [address] [place], [place] [id number], [facility] [phone] [facility] documented in this encounter Visit Diagnoses Not on filedocumented in this encounter Care Teams Hostel Parent Relationship Specialty Start Date End Date Diego Bartlett MD PCP - General 05/10/11 07/24/19 documented as of this encounter
--- OUTSIDE RECORDS SUMMARY | 2015-05-08 02:32 | XMS_ITS | Encounter Summary ---
Author Organization Scott Hymangrey [facility] Address [address] [employer] [place] [address] Care Team Providers Care Therapeutic Recreation Assistant Name Role Phone Diego Bartlett MD Primary Care Provider Yanet garcia Encounter Details Date Type Department Care Team (Late Contact Info) Description 05/08/2015 1:32 AM EST Hospital Encounter MTH PRE ADMIT [address] [place] [address] Tiburcio Brennan MD [address] [place] [address] Social History Tobacco Use Types [...] 1:00 PM EDT Appointment [facility] [address] [place] [address] phlebotomy documented as of this encounter Procedures Procedure Name Priority Date/Time Associated Diagnosis Comments TYPE AND SCREEN Routine 05/08/2015 12:42 PM EST documented in this encounter Results * Type and screen (05/08/2015 12:42 PM EST) Expiration Date 05/15/2015 5 4:00 PM EST [facility] Arm Band Number [id number] 5 4:00 PM EST [facility] ABO/Rh A POSITIVE 05/08/2015 4:00 PM EST [facility] Antibody Screen NEGATIVE 5 4:00 PM EST [facility] Comment: Performed at [address] [place] [address] ([phone] 05/08/2015 12:4 2 PM EST 05/08/2015 12:43 PM EST us Tiburcio Brennan MD BLOOD BANK TEST ORDERABLES Fi nal Result [facility] [address] [place], [place] [id number] [phone] [facility] documented in this encounter Visit Diagnoses Not on filedocumented in this encounter Care Teams Therapeutic Recreation Assistant Relationship Specialty Start Date End Date Diego Bartlett MD PCP - General 05/10/11 07/24/19 documented as of this encounter
--- OUTSIDE RECORDS SUMMARY | 2015-09-17 13:44 | XMS_ITS | Encounter Summary ---
Author Organization [facility] Address [address] [place] [address] Care Team Providers Care Center Specialists Name Role Phone Diego Bartlett MD Primary Care Provider Unavailabl e Encounter Details Date Type Department Care Team (Late Contact Info) Description 09/17/2015 1:44 PM EDT Hospital Encounter [facility] PFT [address] [place] [phone] Newton Stein MD [address] [place] [address] Social History Tobacco Use Types Packs/Day Years [...] 1:00 PM EDT Appointment [facility] [address] [place] [phone] phlebotomy documented as of this encounter Procedures Procedure Name Priority Date/Time Associated Diagnosis Comments BLOOD GAS, ARTERIAL Sunquest Label Print 09/17/2015 3:10 PM EDT documented in this encounter Results * (ABNORMAL) Blood Gas, Arterial (09/17/2015 3:10 PM EDT) pH, Arterial 7.403 7.35 - 7.45 09/17/2015 3:36 PM EDT [facility] pCO2, Arterial 41.8 35 - 45 mmHg 09/17/2015 3:36 PM EDT [facility] pO2, Arterial 78.5(L) 80 - 100 mmHg 09/17/2015 3:36 PM EDT [facility] HCO3, Arterial 25.5 22 - 26 mmol/L 09/17/2015 3:36 PM EDT [facility] Positive Base Excess, Art 0.6 0.0 - 2.0 mmol/L 09/17/2015 3:36 PM EDT [facility] Negative Base Excess, Art NOT REPORTED 0.0 - 2.0 mmol/L [facility] O2 Sat, Arterial 96.1 95 - 98 % 09/17/2015 3:36 PM EDT [facility] Total Hb NOT REPORTED 12.0 - 16.0 g/dl [facility] Oxyhemoglobin NOT REPORTED 95.0 - 98.0 % [facility] Carboxyhemoglobin 0.3 0.0 - 5.0 % 09/17/2015 3:36 PM EDT [facility] Methemoglobin 0.6 0.0 - 1.9 % 09/17/2015 3:36 PM EDT [facility] Pt Temp 37 09/17/2015 3:36 PM EDT [facility] pH, Art, Temp Adj NOT REPORTED 7.350 - 7.450 [facility] pCO2, Art, Temp Adj NOT REPORTED [facility] pO2, Art, Temp Adj NOT REPORTED 80.0 - 100.0 mmHg [facility] O2 Device/Flow/% ROOM AIR 09/17/19 16 3:36 PM EDT [facility] Respiratory Rate NOT REPORTED [facility] Brennan Test PASS 09/17/2015 3:36 PM EDT [facility] Sample Site Left Radial Artery 09/17/2015 3:36 PM EDT [facility] Comment: Performed at [address] [place] [address] ([phone] Pt. Position NOT REPORTED [facility] Mode NOT REPORTED [facility] Sed Rate NOT REPORTED [facility] Total Rate NOT REPORTED [facility] VT NOT REPORTED [facility] FIO2 NOT REPORTED [facility] Peep/Cpap NOT REPORTED [facility] PSV NOT REPORTED [facility] Text for Respiratory NOT REPORTED [facility] NOTIFICATION NOT REPORTED [facility] Notification Time NOT REPORTED [facility] Blood gases 09/17/2015 3:10 PM EDT 09/17/2015 3:18 PM EDT Newton Stein MD CHP ABG ORDER Final Resu lt [facility] [address] [place] [id number] [phone] [facility] documented in this encounter Visit Diagnoses Not on filedocumented in this encounter Care Teams Center Specialists Relationship Specialty Start Date End Date Diego Bartlett MD PCP - General 05/10/11 07/24/19 documented as of this encounter
--- OUTSIDE RECORDS SUMMARY | 2024-11-15 14:09 | XMS_ITS ---
Author Organization [facility] Address [address] [place] [address] Care Team Providers Care Pot Pusher Name Role Phone Jordan Wong MD Primary [...] 10/01/2015 S/P JORY - LCX & RCA ([id number]-Fa. kabour) 05/13 S/P cardiac cath-05/13/14-Dr. landrum 05/13/2014 [...]
--- OUTSIDE RECORDS SUMMARY | 2024-11-15 14:09 | XMS_ITS | Encounter Summary ---
Author Organization [facility] Address [address] [place] [address] Care Team Providers Care Scientific Glass Blower Name Role Phone Jordan Wong MD Primary Care Provider [phone] Mitch Mello MD Unavailable Jr. Julio Henson DO Unavailable Alberto Ibrahim DPM Unavailable Jordan Wong MD Unavailable Julio Huddleston MD Unavailable [phone] Hudson Stevenson MD Unavailable Kitty Edmond OD Unavailable Encounter Details Date Type Department Care Team (Late st Contact Info) Description 04/14/2023 Orders Only [facility] [address] [place] [address] Julio Huddleston MD [address] [place] [address] Social History Tobacco Use Types [...] on filedocumented in this encounter Care Teams Scientific Glass Blower Relationship Specialty Start Date End Date Jordan Wong MD 112 [facility] 100 [place] [address] PCP - General Family Medicine 10/25/22 Jordan Wong MD 112 [facility] 100 [place] [address] PCP - ACO Reach 08/05/23 Mitch Mello MD [address] [place] [address] Referring Physician Cardiology 05/17/23 07/24/24 Jr. Julio Henson DO [address] [address] Referring Physician Orthopaedic Surgery 05/17/23 Alberto Ibrahim DPM 1900 [facility] [place] [address] Referring Physician Podiatry 05/17/23 Julio Huddleston MD [address] [place] [address] Referring Physician Family Medicine 07/25/24 Hudson Stevenson MD [address] [place] [address] Referring Physician Urology 07/25/24 Kitty Edmond OD [address] [facility] [place] [address] Referring Physician Optometry 07/25/24 documented as of this encounter
--- OUTSIDE RECORDS SUMMARY | 2024-11-15 14:09 | XMS_ITS | Encounter Summary ---
Author Organization [facility] Address [address] [facility] [place] [address] Care Team Providers Care Ux Developer Name Role Phone Celi Wong MD Primary Care Provider iMtch Mello MD Unavailable [phone] Jr. Julio Henson DO Unavailable [phone] Alberto Ibrahim DPM Unavailable Celi Wong MD Unavailable [phone] Julio Huddleston MD Unavailable Hudson Stevenson MD [...] AM EST Narrative 05/18/2024 10:07 [place] [address] Nuclear Medicine Report Signed Patient: JUAN MIGUEL JENNINGS MR#: [id number] : 1950 Acct:[id number] Age/Sex: 74 / M ADM Date: 05/17/24 Loc: CARD Attending Dr: PAUL WEN APRN Ordering Physician: PAUL WEN APRN Date of Service: 05/17/24 Procedure(s): NM faith perf SPECT rest str Accession Number(s): [id number] cc: CELI WONG ; PAUL WEN APRN Patient Name: JUAN MIGUEL JENNINGS MR#: [id number] : 1950 Exam Date: 05/17/2024 Ordering Doctor: PAUL WEN SCREEN PRINTING INSPECTOR RADIOLOGY REPORT PROCEDURE: NM FAITH PERF SPECT [...] LOCATION: Mid-anterior. Mid-inferior. Apical anterior. Apical inferior. [place]. SIZE: Large (5 or more segments). SEVERITY: [...] Signed By: 05/18/24 1007 DD/ 1006 TD/TT: Chair Springer: Procedure Note Radiology, Radiologist, - 05/18/2024 [place] [address] Nuclear Medicine Report Signed Patient: JUAN MIGUEL JENNINGS JMR#: [id number] : 1950cct:[id number] Age/Sex: 74 / MADM Date: 05/17/24 Loc: CARD Attending Dr: PAUL WEN APRN Ordering Physician: PAUL WEN APRN Date of Service: 05/17/24 Procedure(s): NM faith perf SPECT rest str Accession Number(s): [id number] cc: CELI WONG ; PAUL WEN APRN Patient Name: JUAN MIGUEL JENNINGS MR#: [id number] : 1950 Exam Date: 05/17/2024 Ordering Doctor: PAUL WEN SCREEN PRINTING INSPECTOR RADIOLOGY REPORT PROCEDURE: NM FAITH PERF SPECT [...] LOCATION: Mid-anterior. Mid-inferior. Apical anterior. Apical inferior. [place]. SIZE: Large (5 or more segments). SEVERITY: [...] M.D. Signed By:05/18/24 1007 DD/ 1006 TD/TT: Chair Springer: us Generic External Data Provider [facility] Final Result documented in this encounter Visit Diagnoses Not on filedocumented in this encounter Additional Health Concerns Assessment Noted Time PHQ-9 Depression Total Score: 0 05/17/20 23 9:00 AM EST documented as of this encounter Care Teams Ux Developer Relationship Specialty Start Date End Date Celi Wong MD [address] [address] PCP - General Family Medicine 10/25/22 Celi Wong MD [address] [place], [place] [address] PCP - ACO Reach 08/05/23 Mitch Mello MD [address] [place] [address] Referring Physician Cardiology 05/17/23 07/24/24 Jr. Julio Henson DO [address] [place], [place] [address] Referring Physician Orthopaedic Surgery 05/17/23 Alberto Ibrahim DPM [address] [place], [place] [address] Referring Physician Podiatry 05/17/23 Julio Huddleston MD [address] [place] [address] Referring Physician Family Medicine 07/25/24 Hudson Stevenson MD [address] [place], [place] [address] Referring Physician Urology 07/25/24 Kitty Edmond OD [address] [facility] [place] [address] Referring Physician Optometry 07/25/24 documented as of this encounter
--- OUTSIDE RECORDS SUMMARY | 2024-11-15 14:09 | XMS_ITS | Encounter Summary ---
Author Organization [facility] Address [address] [facility] [place] [address] Care Team Providers Care Optometric Assistant Name Role Phone Jordan Wong MD Primary Care Provider Mitch Mello MD Unavailable Jr. Julio Henson DO Unavailable [phone] Alberto Ibrahim DPM Unavailable Jordan Wong MD Unavailable Julio Huddleston MD Unavailable [phone] Hudson Stevenson MD Unavailable [phone] Kitty Edmond OD Unavailable Encounter Details Date Type Department Care Team (Late st Contact Info) Description 05/21/2024 Abstract [facility] [address] [place] [address] Alberto Ibrahim, DPM [address] [place], [place] [id number] Social History Tobacco Use Types Packs/Day Years [...] documented as of this encounter Care Teams Optometric Assistant Relationship Specialty Start Date End Date Jordan Wong MD 112 [facility] 100 [place] [address] PCP - General Family Medicine 10/25/22 Jordan Wong MD 112 [facility] 100 [place] [address] PCP - ACO Reach 08/05/23 Mitch Mello MD 1100 [place] [address] Referring Physician Cardiology 05/17/23 07/24/24 Jr. Julio Henson DO 112 [facility] 150 [place] [address] Referring Physician Orthopaedic Surgery 05/17/23 Alberto Ibrahim DPM [address] [place] [address] Referring Physician Podiatry 05/17/23 Julio Huddleston MD [address] [place] [address] Referring Physician Family Medicine 07/25/24 Hudson Stevenson MD 290 [place] [address] Referring Physician Urology 07/25/24 Kitty Edmond OD [address] [facility] [place] [address] Referring Physician Optometry 07/25/24 documented as of this encounter
--- OUTSIDE RECORDS SUMMARY | 2024-11-15 14:09 | XMS_ITS | Encounter Summary ---
Author Organization [facility] Address [address] [facility] [place] [address] Care Team Providers Care Floor Polisher Name Role Phone Celi Wong MD Primary Care Provider [phone] Mitch Mello MD Unavailable Jr. Julio Henson DO Unavailable [phone] Alberto Ibrahim DPM Unavailable [phone] Celi Wong MD Unavailable [phone] Julio Huddleston MD Unavailable Hudson Stevenson MD [...] PM EST Narrative 05/22/2024 5:07 [place] [address] Cardiology Report Signed Patient: JUAN MIGUEL JENNINGS MR#: [id number] : 1950 Acct:[id number] Age/Sex: 74 / M ADM Date: 05/22/24 Loc: CARD Attending Dr: PAUL WEN APRN Ordering Physician: PAUL WEN APRN Date of Service: 05/22/24 Procedure(s): CA echo doppler complete Accession Number(s): [id number] cc: CELI WONG ; PAUL WEN APRN Patient Name: JUAN MIGUEL JENNINGS MR#: [id number] : 1950 Exam Date: 05/22/2024 Ordering Doctor: [...] M.D. Signed By: 05/22/241706 DD/ 05 TD/TT: Film Numberer: Procedure Note Radiology, Radiologist, MD - 05/22/2024 [place] [address] Cardiology Report Signed Patient: JUAN MIGUEL JENNINGS JMR#: [id number] : 1950cct:[id number] Age/Sex: 74 / MADM Date: 05/22/24 Loc: CARD Attending Dr: PAUL WEN APRN Ordering Physician: PAUL WEN APRN Date of Service: 05/22/24 Procedure(s): CA echo doppler complete Accession Number(s): [id number] cc: CELI WONG ; PAUL WEN APRN Patient Name: JUAN MIGUEL JENNINGS MR#: [id number] : 1950 Exam Date: 05/22/2024 Ordering Doctor: PAUL WEN [facility] ECHOCARDIOGRAM REPORT PROCEDURE: CA ECHO DOPPLER [...] Diego M.D. Signed By:05/22/241706 DD/ 05 TD/TT: Film Numberer: [facility] External Data Provider [facility] Final Result * (ABNORMAL) ALL TESTOSTERONE (05/22/2024 8:39 AM EST) [facility] TESTOSTERONE 91(A) 264 - 916 ng/dL [facility] Comment: Adult male reference interval is based on a population of healthy nonobese males (BMI <30) between 19 and 39 years old. bubba Fleming.al. JCEM 2017,102;4330-0616. PMID: [id number]. Performed at: [address] [id number] [place] Resistance: Zeke Almaguer PhD, Phone: [phone] 05/22/2024 8:39 AM EST 05/22/2024 8:40 AM EST Narrative [facility] - 05/23/2024 11:08 AM EST us Generic External Data Provider [facility] F inal Result Performing Organization Address City/State/[facility] Co de Phone Number [facility] documented in this encounter Visit Diagnoses Not on filedocumented in this encounter Additional Health Concerns Assessment Noted Time PHQ-9 Depression Total Score: 0 05/17/20 9:00 AM EST documented as of this encounter Care Teams Floor Polisher Relationship Specialty Start Date End Date Celi Wong MD 112 [facility] 100 [place] [address] PCP - General Family Medicine 10/25/22 Celi Wong MD [address] [place] [address] PCP - ACO Reach 08/05/23 Mitch Mello MD 1100 [place] [address] Referring Physician Cardiology 05/17/23 07/24/24 Jr. Julio Henson DO [address] [place] [address] Referring Physician Orthopaedic Surgery 05/17/23 Alberto Ibrahim DPM [address] [place], [place] [address] Referring Physician Podiatry 05/17/23 Julio Huddleston MD [address] [place] [address] Referring Physician Family Medicine 07/25/24 Hudson Stevenson MD [address] [place] [id number] Referring Physician Urology 07/25/24 Kitty Edmond OD 2[address] [place] [address] Referring Physician Optometry 07/25/24 documented as of this encounter
--- OUTSIDE RECORDS SUMMARY | 2024-11-15 14:09 | XMS_ITS | Encounter Summary ---
Author Organization [facility] Address [address] [place] [address] Care Team Providers Care Defensive Driving Instructor Name Role Phone Jordan Wong MD Primary Care Provider [phone] Mitch Mello MD Unavailable [phone] Jr. Julio Henson DO Unavailable [phone] Alberto Ibrahim DPM Unavailable Jordan Wong MD Unavailable Julio Huddleston MD Unavailable Hudson Stevenson MD Unavailable Kitty Edmond OD Unavailable Encounter Details Date Type Department Care Team (Late st Contact Info) Description 05/03/2023 Orders Only [facility] [address] [place] [address] Newton Stevenson MD [address] [place], [place] [address] Social History Tobacco Use Types Packs/Day Years [...] on filedocumented in this encounter Care Teams Defensive Driving Instructor Relationship Specialty Start Date End Date Jordan Wong MD [address] [address] PCP - General Family Medicine 10/25/22 Jordan Wong MD [address] [address] PCP - ACO Reach 08/05/23 Mitch Mello MD 1100 [place], [place] [address] Referring Physician Cardiology 05/17/23 07/24/24 Jr. Julio Henson DO [address] [facility] 150 [place] [address] Referring Physician Orthopaedic Surgery 05/17/23 Alberto Ibrahim DPM [address] [facility] [place] [place] [address] Referring Physician Podiatry 05/17/23 Julio Huddleston MD 1355 [place] [address] Referring Physician Family Medicine 07/25/24 Hudson Stevenson MD 290 [place], [place] [address] Referring Physician Urology 07/25/24 Kitty Edmond OD [address] [facility] [place] [address] Referring Physician Optometry 07/25/24 documented as of this encounter
--- OUTSIDE RECORDS SUMMARY | 2024-11-15 14:09 | XMS_ITS | Clinical Summary ---
Author Organization [facility] Address [address] [facility] [place] [address] Care Team Providers Care Personal Financial Counselor Name Role Phone Jordan Wong MD Primary Care Provider [phone] Jr. Julio Henson DO Unavailable Alberto Ibrahim DPM Unavailable Jordan Wong MD Unavailable [phone] Julio Huddleston MD Unavailable Hudson Stevenson MD [...] EC tabletIndication s:Arterioscleros is of coronary artery Take 1 tablet (81 mg) by mouth [...] polyneuropathy, without long-term current use of insulin ([facility]) Take 1 tablet (30 mg) by mouth in the morning. 90 tablet 1 09/19/19 25 025 Active losartan (Cozaar) 50 MG tabletIndication s:Essential hypertension Take 1 tablet (50 mg) by mouth Daily 90 tablet 1 09/19/19 25 025 Active metoprolol tartrate (Lopressor) 100 MG tabletIndication s:Essential hypertension Take 1 tablet (100 mg) by mouth [...] polyneuropathy, without long-term current use of insulin (HCC) Titrate from 1 to 2 capsules three [...] polyneuropathy, without long-term current use of insulin ([facility]) Titrate from 1 to 4 capsules three times daily as needed for pain 100 capsule 09/19/19 25 025 Discontin ued(Reord er) Active Problems Problem Noted Date Diagnosed Date OAB (overactive bladder) 07/16/2024 Acquired hammer toes of both feet 01/11/2023 BPH with urinary obstruction 01/11/2023 Chronic constipation 01/11/2023 Elevated PSA 01/11/2023 Open-angle glaucoma 01/11/2023 History of colon cancer 01/11/2023 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 01/11/2023 Hypogonadism male [...] knee replacement 06/03/2021 05/17/2023 Difficulty walking 05/26/2021 4 Unilateral primary osteoarthritis, left knee 1 01/13/2023 Internal derangement of left knee 01/23/2021 01/13/2023 Other chronic pain 12/25/2020 3 Chronic kidney disease, stage 2 (mild) 11/15/2019 10/14/2023 Old myocardial infarction 02/09/2018 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05/17 Acute osteomyelitis of metat arsal bone of right foot 08/05/2016 01/13/2023 Cellulitis and abscess of toe of right foot 08/04/2016 01/13/2023 Diabetic peripheral neuropathy 08/04/2016 01/13/2023 S/P cardiac cath 05/13/2014 01/13/2023 Overview (01/11/2023): Patent stents Encounters Date Type Department Care Team Description 10/18/2024 Telephone [facility] [address] [place] [address] [place] [address] Jordan Wong MD 09/18/2024 9:30 AM EDT Office Visit [facility] [address] [place] [address] [place] [address] Jordan Wong MD Essential hypertension (Primary Dx); Microalbuminuria; Type 2 diabetes mellitus with diabetic microalbuminuria, without long-term current use of insulin (HCC); Type 2 diabetes mellitus with diabetic polyneuropathy, without long-term current use of insulin (HCC); Mixed hyperlipidemia ; Adverse reaction to statin medication 09/18/2024 Bamboo flowsheet [facility] [address] [place] [address] [place] [address] Jordan Wong MD 09/18/2024 Travel 09/13/2024 Refill [facility] [address] [facility] [address] [place] [address] Jordan Wong MD Dyspepsia 09/11/2024 Telephone [facility] [address] [facility] 100 [place] [address] Pamella Sam, JENNY Lab Orders from Last 3 Months Immunizations Immunization Administration Dates Next Due Influenza, [id number] 03/06/2016 Influenza, High Dose Seasona l, Preservative Free 03/05/2019,03/03/2018 Influenza, High-dose Seasona l, Quadrivalent, Preservative Free 03/04/2019,03/06/2016 Influenza, Seasonal, Quadriv alent, Adjuvanted 02/28/2023,04/16/2022,05/06/2021,03/22 Influenza, Unspecified 02/28/2023,2021,05/06/2021,03/22,03/05/2019,03/03/2018,04/06/2017 ,03/06/2016,03/06/2016,01/23/2016,03/06,04/06/2013 Influenza, injectable, quadr ivalent, preservative free 04/06/2017,01/23/2016 Influenza, seasonal, injectable 03/28/2024,03/23,04/06/2013 Influenza, trivalent, adjuvanted 03/28/2024 Moderna Bivalent Booster Vaccination 03/23/2022 Moderna SARS-CoV-2 50mcg/0.5mL Booster Novel [id number], preservative-free 04/21/2009 Pfizer Bivalent Booster 12 Y [...] 09/18/2024 9:3 4 AM EDT Essential hypertension Microalbuminuria Type 2 diabetes mellitus with diabetic microalbuminuria, without long-term current use of insulin (HCC) Type 2 diabetes mellitus with diabetic polyneuropathy, without long-term current use of insulin (HCC) COMPREHENSIVE METABOLIC PANEL Routine 09/12/2024 8:26 AM EDT HEMOGLOBIN A1C Routine 09/12/2024 8:26 AM EDT Type 2 diabetes mellitus with diabetic polyneuropathy, without long-term current use of insulin (HCC) LIPID PANEL Routine 09/12/2024 8:26 AM EDT Mixed hyperlipidemia DIABETIC RETINOPATHY SCREENING - OU - BOTH [...] Performing Organization Information Site ID: QPT Name: [employer] [facility] Address: [address] [place] [address], [address] [place] [phone] Director: Toan Lara MD Jordan Wong MD LAB BLOOD ORDERABLES Final R esult [facility] * (ABNORMAL) Lipid panel (09/12/2024 8:26 AM EDT) CHOLESTEROL, TOTAL 242(H) <200 mg/dL [facility] HDL CHOLESTEROL 40 > OR = 40 mg/dL [facility] TRIGLYCERIDES 389(H) <150 mg/dL [facility] Comment: If a non-fasting specimen was collected, consider repeat triglyceride testing on a fasting specimen if clinically indicated. Fischer et al. J. of Clin. Lipidol. 2015;9:129-169. [...] equation in the estimation of LDL-C. Deion SS et al. MAHENDRA. 2013;310(19): 3674-1684 (http://education.Magma [employer].Ethical Electric/faq/JUD359) CHOL/HDLC RATIO 6.1(H) <5.0 (calc) [facility] NON [...] Performing Organization Information Site ID: QPT Name: [employer] [facility] Address: [address] [place] [address], [address] [place] [phone] Director: Toan Lara MD Jordan Wong MD LAB BLOOD ORDERABLES Final R esult [facility] * (ABNORMAL) Comprehensive metabolic panel (09/12/2024 8:26 AM EDT) Glucose 129(H) 65 - 99 mg/dL [facility] [...] Performing Organization Information Site ID: QTW Name: [facility] Address: [address] [place] [phone] Director: Parvin Gray Jordan Wong MD LAB BLOOD ORDERABLES Final R esult Performing Organization Address City/State/[facility] Co de Phone Number [facility] * Diabetic Retinopathy Screening - OU - Both Eyes (09/30/2023 9:57 AM EDT) Anatomical Region Laterality Modality Head Other Kitty Edmond OD OPHTH PHOTOGRAPHY Final Result * Colonoscopy (12/17/2020 12:00 PM EDT) Anatomical Region Laterality Modality Endoscopy 12/17/2020 12:0 0 PM EDT Narrative 12/17/2020 12:00 PM EDT PERFORMED AT [facility] LOCATION:[id number] Procedure Note CONVERSION, GENERIC - 10/20/2022 PERFORMED AT [facility] LOCATION:[id number] Jordan Wong MD ENDOSCOPY PROCEDURE ORDERABL ES Final Result from Last 3 Months or Most Recently Relevant to Health Maintenance Insurance MEDICARE AARP Advance Directives Documents on File Type Date Recorded Patient Investment Analyst Expl anation Advance Directives and Living Will 11/20/2019 2018-05-09 Living Wi ll Advance Directives and Living Will 11/20/2019 2018-05-09 Power Of Beauty Operator Care Teams Personal Financial Counselor Relationship Specialty Start Date End Date Jordan Wong MD [address] [place] [address] (Fax) PCP - General Family Medicine 10/25/22 Jordan Wong MD [address] [place] [address] (Fax) PCP - ACO Reach 08/05/23 Jr. Julio Henson DO [address] [place] [address] Referring Physician Orthopaedic Surgery 05/17/23 Alberto Ibrahim DPM [address] [place] [address] Referring Physician Podiatry 05/17/23 Julio Huddleston MD 135[address] [place] [address] Referring Physician Family Medicine 07/25/24 Hudson Stevenson MD [address] [place] [address] Referring Physician Urology 07/25/24 Kitty Edmond OD [address] [place] [address] Referring Physician Optometry 07/25/24
--- OUTSIDE RECORDS SUMMARY | 2024-11-15 14:09 | XMS_ITS | Encounter Summary ---
Author Organization [facility] Address [address] [place] [address] Care Team Providers Care Boilermaker'S Assistant Name Role Phone Jordan Wong MD Primary Care Provider Mitch Mello MD Unavailable Jr. Julio Henson DO Unavailable Alberto Ibrahim DPM Unavailable Jordan Wong MD Unavailable [phone] Julio Huddleston MD Unavailable Hudson Stevenson MD Unavailable [phone] Kitty Edmond OD Unavailable Encounter Details Date Type Department Care Team (Late st Contact Info) Description 09/30/2023 Orders Only [facility] [address] [place] [address] Kitty Edmond, OD [address] [place] [address] Social History Tobacco Use Types Packs/Day Years [...] documented as of this encounter Care Teams Boilermaker'S Assistant Relationship Specialty Start Date End Date Jordan Wong MD [address] [address] PCP - General Family Medicine 10/25/22 Jordan Wong MD [address] [address] PCP - ACO Reach 08/05/23 Mitch Mello MD [address] [place], [place] [phone] Referring Physician Cardiology 05/17/23 07/24/24 Jr. Julio Henson DO [address] [place] [address] Referring Physician Orthopaedic Surgery 05/17/23 Alberto Ibrahim DPM [address] [place] [address] Referring Physician Podiatry 05/17/23 Julio Huddleston MD 1355 [place] [address] Referring Physician Family Medicine 07/25/24 Hudson Stevenson MD [address] [place] [address] Referring Physician Urology 07/25/24 Kitty Edmond OD 2331 [facility] [place] [address] Referring Physician Optometry 07/25/24 documented as of this encounter
--- OUTSIDE RECORDS SUMMARY | 2024-11-15 14:09 | XMS_ITS | Clinical Summary ---
Author Organization Scott Flanagan [facility] Address [address] [place] [address] Care Team Providers Care Motion Picture Cameraman Name Role Phone Jordan Wong MD Primary [...] 10/01/2015 S/P JORY - LCX & RCA ([id number]-We. kabour) 05/13 S/P cardiac cath-05/13/14-Dr. 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 Resolved Problems Problem Noted Date Diagnosed Date Resolved Date Screening for colorectal cancer 02/12/2014 04/03/2018 Encounters Date Type Department Care Team Description 10/17/2024 1:00 PM EDT Office Visit [facility] Part of [address] [address] Newton Stein MD Anal cancer (HCC) (Primary Dx); Polycythemia from Last 3 Months Immunizations Immunization Administration [...] Info) Description 02/22/2025 1:00 PM EDT Appointment [facility] [address] [place] [phone] phlebotomy Health Maintenance Due Date Last Done [...] PSA 3rd Generation (10/13/2018 9:50 AM EDT) PSA, Ultrasensitive 0.11 0.00 - 4.00 ng/mL [facility] Comment: Performed at [facility] [address] [place] [address] [facility] [address] [place] [address] CLIA No. [id number] CAP Accreditation No. [id number] Shop Technician: Clint Tamez M.D. 10/13/2018 9:50 AM EDT 10/13/2018 11:25 AM EDT Narrative -[facility] - 10/14/2018 2:14 AM EDT Ordering Provider: WILLI SANCHEZ us Willi Sanchez MD CHEMISTRY ORDERABLES Final Result [facility] * (ABNORMAL) Hemoglobin A1c (08/04/2016 7:05 PM EST) Pathologist [facility] Hemoglobin A1C 6.1(H) 4.8 - 5.9 % 08/04/2016 11:12 PM EST [facility] Estimated Avg Glucose 128 mg/dL 08/04/2016 11:12 PM EST [facility] Comment: The ADA and AACC recommend providing the estimated average glucose result to permit better patient understanding of their HBA1c result. Performed at [address] [place] [address] ([phone] BLOOD SPECIMEN / Unknown 08/04/2016 7:05 PM EST 08/04/2016 10:33 PM EST us Elton Dawson MD CHEMISTRY ORDERABLES Final Resu lt [facility] [address] [phone] [facility] * US ABDOMINAL LIMITED (04/15/2014 8:53 AM EST) Anatomical Region Laterality Modality Abdomen Other 04/15/2014 8:53 AM EST Narrative 04/15/2014 9:13 AM EST FINAL Procedure: [facility] Apr 15 2014 8:53AM [id number] US ABD LIMITED Reason for Exam: ^polycythemia, [...] kidneys reveals no hydronephrosis Report Transcribed by: [facility] on Apr 15 2014 9:13A Read by: CHAPIN BAUTISTA M.D. [id number] on Apr 15 2014 9:13A Electronically Signed by: DR. CHAPIN BAUTISTA M.D. on: Apr 15 2014 9:13A Procedure Note Chapin Bautista MD - 04/15/2014 FINAL Procedure: [facility] Apr 15 2014 8:53AM [id number] US ABD LIMITED Reason for Exam: ^polycythemia, [...] kidneys reveals no hydronephrosis Report Transcribed by: [facility] on Apr 15 2014 9:13A Read by: CHAPIN BAUTISTA M.D. [id number] on Apr 15 2014 9:13A Electronically Signed by: DR. CHAPIN BAUTISTA M.D. on: Apr 15 2014 9:13A Gilda Conner MD [facility] ORDERABLES Final Res ult from Last 3 Months or Most Recently Relevant to Health Maintenance Insurance MEDICARE AARP HE[employer] CARE MEDICARE SUPP Advance Directives Documents on File Type Date Recorded Patient Semiconductor Processor Expl anation ACP-Power of Dye Can Operator 08/31/2013 9:46 AM ACP-Advance Directive 08/31/2013 9:46 [...] 2:36 PM 05/13/2014 9:20 PM Care Teams Motion Picture Cameraman Relationship Specialty Start Date End Date Jordan Wong MD PCP - General 07/25/19
--- OUTSIDE RECORDS SUMMARY | 2024-11-15 14:09 | XMS_ITS | Encounter Summary ---
Author Organization [facility] Address [address] [place] [address] Care Team Providers Care Weed Cooking Operator Name Role Phone Jordan Wong MD Primary Care Provider Mitch Mello MD Unavailable Jr. Julio Henson DO Unavailable Alberto Ibrahim DPM Unavailable Jordan Wong MD Unavailable Julio Huddleston MD Unavailable Hudson Stevenson MD Unavailable Kitty Edmond OD Unavailable Encounter Details Date Type Department Care Team (Late st Contact Info) Description 04/20/2023 Orders Only [facility] [address] [place] [address] Jordan Wong MD 112 [facility] 100 [place] [address] Social History Tobacco Use Types [...] on filedocumented in this encounter Care Teams Weed Cooking Operator Relationship Specialty Start Date End Date Jordan Wong MD 112 [facility] [address] [place] [address] PCP - General Family Medicine 10/25/22 Jordan Wong MD 112 [facility] [address] [place] [address] PCP - ACO Reach 08/05/23 Mitch Mlelo MD 1100 [place] [address] Referring Physician Cardiology 05/17/23 07/24/24 Jr. Julio Henson DO [address] [place] [address] Referring Physician Orthopaedic Surgery 05/17/23 Alberto Ibrahim DPM [address] [place] [address] Referring Physician Podiatry 05/17/23 Julio Huddleston MD [address] [place] [address] Referring Physician Family Medicine 07/25/24 Hudson Stevenson MD 290 [place] [address] Referring Physician Urology 07/25/24 Kitty Edmond OD [address] [place] [address] Referring Physician Optometry 07/25/24 documented as of this encounter
--- OUTSIDE RECORDS SUMMARY | 2024-11-15 14:09 | XMS_ITS | Encounter Summary ---
Author Organization [facility] Address [address] [place] [address] Care Team Providers Care Scalp Treatment Specialist Name Role Phone Jordan Wong MD Primary Care Provider Mitch Mello MD Unavailable [phone] Jr. Julio Henson DO Unavailable [phone] Alberto Ibrahim DPM Unavailable [phone] Jordan Wong MD Unavailable [phone] Julio Huddleston MD Unavailable [phone] Hudson Stevenson MD Unavailable Kitty Edmond OD Unavailable Encounter Details Date Type Department Care Team (Late st Contact Info) Description 10/25/2023 Orders Only [facility] [address] [place] [address] Newton Stevenson MD [address] [place], [place] [address] Social History Tobacco Use Types Packs/Day Years [...] documented as of this encounter Care Teams Scalp Treatment Specialist Relationship Specialty Start Date End Date Jordan Wong MD [address] [address] PCP - General Family Medicine 10/25/22 Jordan Wong MD [address] [place] [address] PCP - ACO Reach 08/05/23 Mitch Mello MD 1100 [place] [address] Referring Physician Cardiology 05/17/23 07/24/24 Jr. Julio Henson DO [address] [place] [address] Referring Physician Orthopaedic Surgery 05/17/23 Alberto Ibrahim DPM 1900 [place], [place] [address] Referring Physician Podiatry 05/17/23 Julio Huddleston MD 1355 [place] [address] Referring Physician Family Medicine 07/25/24 Hudson Stevenson MD [address] [place] [address] Referring Physician Urology 07/25/24 Kitty Edmond OD 2331 [facility] [place] [address] Referring Physician Optometry 07/25/24 documented as of this encounter
--- OUTSIDE RECORDS SUMMARY | 2024-11-15 14:09 | XMS_ITS | Encounter Summary ---
Author Organization [facility] Address [address] [facility] [place] [address] Care Team Providers Care Logistic Specialist Name Role Phone Jordan Wong MD Primary Care Provider Mitch Mello MD Unavailable [phone] Jr. Julio Henson DO Unavailable [phone] Alberto Ibrahim DPM Unavailable Jordan Wong MD Unavailable [phone] Julio Huddleston MD Unavailable Hudson Stevenson MD Unavailable Kitty Edmond OD Unavailable Encounter Details Date Type Department Care Team (Late st Contact Info) Description 01/19/2023 Abstract [facility] 1900 [place] [address] Alberto Ibrahim DPM 1900 [place], [place] [address] Social History Tobacco Use Types Packs/Day Years [...] on filedocumented in this encounter Care Teams Logistic Specialist Relationship Specialty Start Date End Date Jordan Wong MD 112 [facility] 100 [place] [address] PCP - General Family Medicine 10/25/22 Jordan Wong MD 112 [facility] 100 [place] [address] PCP - ACO Reach 08/05/23 Mitch Mello MD 1100 [place] [address] Referring Physician Cardiology 05/17/23 07/24/24 Jr. Julio Henson DO 112 [facility] 150 [place] [address] Referring Physician Orthopaedic Surgery 05/17/23 Alberto Ibrahim DPM [address] [place], [place] [address] [place] [address] Referring Physician Podiatry 05/17/23 Julio Huddleston MD 1355 [place] [address] Referring Physician Family Medicine 07/25/24 Hudson Stevenson MD [address] [place] [id number] Referring Physician Urology 07/25/24 Kitty Edmond OD 2331 [place] [address] Referring Physician Optometry 07/25/24 documented as of this encounter
--- OUTSIDE RECORDS SUMMARY | 2024-11-15 14:09 | XMS_ITS | Encounter Summary ---
Author Organization [facility] Address [address] [place] [address] Care Team Providers Care Cart Attendant Name Role Phone Jordan Wong MD Primary Care Provider Mitch Mello MD Unavailable [phone] Jr. Julio Henson DO Unavailable [phone] Alberto Ibrahim DPM Unavailable Jordan Wong MD Unavailable [phone] Julio Huddleston MD Unavailable [phone] Hudson Stevenson MD Unavailable [phone] Kitty Edmond OD Unavailable Encounter Details Date Type Department Care Team (Late st Contact Info) Description 10/28/2023 Abstract [facility] [address] [place] [address] Jordan Wong MD 112 [facility] 100 [place] [address] Social History Tobacco Use Types [...] documented as of this encounter Care Teams Cart Attendant Relationship Specialty Start Date End Date Jordan Wong MD 112 [facility] 100 [place] [address] PCP - General Family Medicine 10/25/22 Jordan Wong MD 112 [facility] 100 [place] [address] PCP - ACO Reach 08/05/23 Mitch Mello MD [address] [place] [address] Referring Physician Cardiology 05/17/23 07/24/24 Jr. Julio Henson DO 112 [facility] 150 [place] [address] Referring Physician Orthopaedic Surgery 05/17/23 Alberto Ibrahim DPM [address] [place] [address] Referring Physician Podiatry 05/17/23 Julio Huddleston MD [address] [place] [address] Referring Physician Family Medicine 07/25/24 Hudson Stevenson MD 290 [place] [address] Referring Physician Urology 07/25/24 Kitty Edmond OD [address] [facility] [place] [address] Referring Physician Optometry 07/25/24 documented as of this encounter
--- OUTSIDE RECORDS SUMMARY | 2024-11-15 14:09 | XMS_ITS | Encounter Summary ---
Author Organization [facility] Address [address] [facility] [place] [address] Care Team Providers Care Disabilities Caregiver Name Role Phone Jordan Wong MD Primary Care Provider Mitch Mello MD Unavailable Jr. Julio Henson DO Unavailable Alberto Ibrahim DPM Unavailable Jordan Wong MD Unavailable Julio Huddleston MD Unavailable [phone] Hudson Stevenson MD Unavailable Kitty Edmond OD Unavailable Encounter Details Date Type Department Care Team (Late st Contact Info) Description 03/07/2023 Abstract [facility] [address] [place] [address] Alberto Ibrahim DPM [address] [place], [place] [id number] Social History Tobacco Use Types Packs/Day Years [...] on filedocumented in this encounter Care Teams Disabilities Caregiver Relationship Specialty Start Date End Date Jordan Wong MD 112 [facility] 100 [place] [address] PCP - General Family Medicine 10/25/22 Jordan Wong MD 112 [facility] 100 [place] [address] PCP - ACO Reach 08/05/23 Mitch Mello MD [address] [place] [address] Referring Physician Cardiology 05/17/23 07/24/24 Jr. Julio Henson DO 112 [facility] 150 [place] [address] Referring Physician Orthopaedic Surgery 05/17/23 Alberto Ibrahim DPM [address] [place] [address] Referring Physician Podiatry 05/17/23 Julio Huddleston MD [address] [place] [address] Referring Physician Family Medicine 07/25/24 Hudson Stevenson MD 290 [place] [address] Referring Physician Urology 07/25/24 Kitty Edmond OD 2[address] [place] [address] Referring Physician Optometry 07/25/24 documented as of this encounter
--- OUTSIDE RECORDS SUMMARY | 2024-11-15 14:09 | XMS_ITS | Clinical Summary ---
Author Organization [facility] Address [address] [place] [address] Care Team Providers Care Copper Roller Handler Printing Name Role Phone Jordan Wong MD Primary Care Provider [phone] Allergies Active Allergy Reactions Criticality Noted Date Comments Clindamycin 03/02/2022 Glipizide Other 03/23/2022 Metformin Other 03/23/2022 Pravastatin Other 03/23/2022 Rosuvastatin Other 03/23/2022 Ezetimibe Other 03/23/2022 Medications aspirin 81 mg EC tablet Take 1 [...] mouth in the morning. Active testosterone cypionate (Depo-Testosteron e) 200 mg/mL injection INJECT 400MG INTRAMUSCULARLY EVERY 4 WEEKS Active losartan (Cozaar) 50 mg tablet Take 50 mg by mouth in the morning. Active pioglitazone (Actos) 30 mg tablet Take 30 mg by mouth in the morning. Active gabapentin (Neurontin) 300 mg capsule Take 300 mg by mouth twice a day. Active evolocumab (Repatha SureClick) 140 mg/mL pen injectorIndicatio ns:Hyperlipidemia , unspecified hyperlipidemia type Inject 1 Pen under the skin every 14 (fourteen) days. 6 mL 3 05/25/20 23 Active Additional Information Patient not taking.Reported on 05/02/2024 metoprolol tartrate (Lopressor) 100 mg tabletIndications :Palpitations Take 100 mg in am and 50 mg in pm every day 135 tablet 3 05/26/20 23 Active famotidine (Pepcid) 20 mg tablet Take 20 mg by mouth twice a day. 12/13/19 24 Active diclofenac (Voltaren) 75 mg EC tablet if needed. 06/20/19 24 Active tamsulosin (Flomax) 0.4 mg 24 hr capsule Take 0.4 mg by mouth twice a day. 01/11/20 24 Active amLODIPine (Norvasc) 5 mg tabletIndications :Benign hypertensive heart disease without congestive heart failure Take 1 tablet (5 mg) by mouth once daily as directed. 90 tablet 3 06/08/19 25 026 Active Additional Information Patient not taking.Reported on 07/16/2024 isosorbide mononitrate ER (Imdur) 30 mg 24 hr tabletIndications :Benign hypertensive heart disease without congestive heart failure Take 1 tablet (30 mg) by mouth once daily as directed. Do not crush or chew. 90 tablet 3 06/08/19 25 026 Active Additional Information Patient not taking.Reported on 07/16/2024 Active Problems Problem Noted Date Diagnosed Date OAB (overactive bladder) 07/16/2024 Phimosis 04/08/2023 04/08/2023 Acquired hammer deformity of great toe 04/08/2023 Acquired hammer toes of both feet 01/11/2023 04/08/2023 BPH with urinary obstruction 01/11/202308/2022 Chronic constipation 01/11/2023 04/08/2023 Elevated PSA 01/11/2023 04/08/2023 History of colon cancer 01/11/2023 04/08/20 23 Hx of assisted use of blood thinners 01/11/2023 04/08/2023 Non-pressure [...] Department Care Team Description 09/07/2024 Orders Only [facility] [place] [address] [place] [address] Rekha, JENNY Akins Mixed hyperlipidemia; Coronary artery disease, unspecified vessel or lesion type, unspecified whether angina present, unspecified whether [place] or transplanted heart from Last 3 Months Immunizations Immunization Administration Dates Next Due Influenza, High Dose Seasona l, Preservative Free 03/05/2019,03/03/2018 Influenza, Seasonal, Quadriv alent, Adjuvanted 05/06/2021,03/22/2020 Influenza, Unspecified 03/06/2016 Influenza, injectable, quadr ivalent, preservative free 04/06/2017,01/23/2016 Influenza, seasonal, injectable 03/23/2014,04/06 Novel [id number], preservative-free 04/21 Pneumococcal Conjugate PCV 13 03/03/2018 [...] at Not on file Legal Sex Male 12:08 AM EDT Gender Identity Not on file Sexual Orientation [...] history exists Diabetes: Hemoglobin A1C 06/21/2024 03/21/2024, 01/2023 Colonoscopy 12/17/2030 12/17/2020 Colorectal Cancer Screening 12/17/2030 Pneumococcal Vaccine: 50+ Years Completed 03/06/2019, 03/05/2019, 03/03/2018, Additional history [...] on patient's age to complete this topic Insurance MEDICARE [facility] Care Teams Copper Roller Handler Printing Relationship Specialty Start Date End Date Jordan Wong MD [address] [place] [address] PCP - General 03/23/22
--- OUTSIDE RECORDS SUMMARY | 2024-11-15 14:09 | XMS_ITS | Encounter Summary ---
Author Organization [facility] Address [address] [place] [address] Care Team Providers Care Advice Line Rn Name Role Phone Jordan Wong MD Primary Care Provider [phone] Mitch Mello MD Unavailable [phone] Jr. Julio Henson DO Unavailable Alberto Ibrahim DPM Unavailable Jordan Wong MD Unavailable Julio Huddleston MD Unavailable [phone] Hudson Stevenson MD Unavailable [phone] Kitty Edmond OD Unavailable Encounter Details Date Type Department Care Team (Late st Contact Info) Description 05/25/2023 Orders Only [facility] [address] [place] [address] Jordan Wong MD 112 [facility] 100 [place] [address] Social History Tobacco Use Types [...] documented as of this encounter Care Teams Advice Line Rn Relationship Specialty Start Date End Date Jordan Wong MD 112 [facility] 100 [place] [address] PCP - General Family Medicine 10/25/22 Jordan Wong MD 112 [facility] 100 [place] [address] PCP - ACO Reach 08/05/23 Mitch Mello MD [address] [place] [address] Referring Physician Cardiology 05/17/23 07/24/24 Jr. Julio Henson DO 112 [facility] 150 [place] [address] Referring Physician Orthopaedic Surgery 05/17/23 Alberto Ibrahim DPM [address] [place] [address] Referring Physician Podiatry 05/17/23 Julio Huddleston MD [address] [place] [address] Referring Physician Family Medicine 07/25/24 Hudson Stevenson MD [address] [place] [address] Referring Physician Urology 07/25/24 Kitty Edmond OD 2[address] [facility] [place] [address] Referring Physician Optometry 07/25/24 documented as of this encounter
== END 2024-11-15 14:06 | disposition home or self-care (01) ==
LOC: WC 14:05
PROVIDERS: PCP Family Medicine; Visit Provider Physician Assistant
DX: L89.892 Pressure ulcer of other site, stage 2 (principal)
CPT/HCPCS: G0463

== ENCOUNTER 2024-11-28 14:42 | Outpatient (OUT) | payer MEDICARE, SELFPAY ==
--- OUTSIDE RECORDS SUMMARY | 2010-08-31 06:30 | XMS_ITS | Encounter Summary ---
Author Organization [facility] Address [address] [place] [address] Care Team Providers Care Psychology Department Chair Name Role Phone Unavailable Primary Care Provider Unavailabl e Encounter Details Date Type Department Care Team (Late Contact Info) Description 08/31/2010 6:30 AM EDT Hospital Encounter [facility] Department [address] [place] [address] Altaf Velázquez MD [address] [place] [address] Social History Tobacco Use Types Packs/Day [...] Info) Description 02/22/2025 1:00 PM EDT Appointment [facility] MED ONC [address] [place] [address] phlebotomy documented as of this encounter Visit Diagnoses Not on filedocumented in this encounter
--- OUTSIDE RECORDS SUMMARY | 2013-08-17 02:10 | XMS_ITS | Encounter Summary ---
Author Organization [facility] Address [address] [place] [address] Care Team Providers Care Care Transition Manager Name Role Phone Diego Bartlett MD Primary Care Provider [phone] Encounter Details Date Type Department Care Team (Late st Contact Info) Description 08/17/2013 2:10 AM EDT Hospital Encounter MTH PRE ADMIT [address] [phone] Peewee Westfall, DPM [address] [place] [address] Social History Tobacco Use Types Packs/Day Years [...] 1:00 PM EDT Appointment [facility] [address] [place] [address] [phone] phlebotomy documented as of this encounter Procedures [...] 12 lead (08/17/2013 8:50 AM EDT) Pathologist [facility] Ventricular Rate 57 BPM [facility] Atrial Rate 57 BPM [facility] P-R Interval 174 ms [facility] QRS Duration 86 ms [facility] Q-T Interval 406 ms [facility] QTc Calculation (Bazett) 395 ms [facility] P [place] 64 degrees [facility] R [place] 26 degrees [facility] T [place] 46 degrees [facility] 08/17/2013 8:50 AM EDT Narrative [facility] - 08/17/2013 6:59 PM EDT Sinus bradycardiaOtherwise normal ECGWhen compared with ECG of 05-OCT-2010 08:57,No significant change was found Procedure Note 08/17/2013 Sinus bradycardiaOtherwise normal ECGWhen compared with ECG of [id number],No significant change was found Peewee Westfall DPM ECG ORDERABLES Final Result [facility] * XR Chest Standard TWO VW (08/17/2013 8:50 AM EDT) Anatomical Region Laterality Modality Chest Radiographic Lynn ging 08/17/2013 8:50 AM EDT Narrative 08/17/2013 4:48 PM EDT FINAL Procedure: TRT Aug 17 2013 8:50AM [id number] CHEST PA AND LATERAL Reason for Exam: [...] by Chapin Bautista M.D. 08/17/2013 04:48 P /atiya A A CC: Danni Fish MD IMPRESSION: SEE ABOVE. Transcribed by: [facility] on Aug 17 2013 4:48P Read by: CHAPIN BAUTISTA M.D. [id number] on Aug 17 2013 11:15A Electronically Signed by: DR. CHAPIN BAUTISTA M.D. on: Aug 17 2013 4:48P Procedure Note Chapin Bautista MD - 08/17/2013 FINAL Procedure: TRT Aug 17 2013 8:50AM [id number] CHEST PA AND LATERAL Reason for Exam: [...] Fish MD IMPRESSION: SEE ABOVE. Transcribed by: [facility] on Aug 17 2013 4:48P Read by: CHAPIN BAUTISTA M.D. [id number] on Aug 17 2013 11:15A Electronically Signed by: DR. CHAPIN BAUTISTA M.D. on: Aug 17 2013 4:48P us Peewee Westfall DPM IMG DIAGNOSTIC IMAGING ORDERA BLES Edited Result - Final * (ABNORMAL) Urinalysis with microscopic (08/17/2013 8:28 AM EDT) Color, UA YELLOW YEL 08/17/2013 10:10 AM EDT [facility] Turbidity UA CLEAR CLEAR 08/17/2013 10:10 AM EDT [facility] Glucose, Ur NEGATIVE NEG 08/17/2013 10:10 AM EDT [facility] Bilirubin Urine NEGATIVE NEG 08/17/201 4 10:10 AM EDT [facility] Ketones, Urine NEGATIVE NEG 08/17/2013 10:10 AM EDT [facility] Specific [place], UA >1.030(H) 1.010 - 1.020 08/17/2013 10:10 AM EDT [facility] Urine Hgb NEGATIVE NEG 08/17/2013 10:10 AM EDT [facility] pH, UA 6.0 5.0 - 9.0 08/17/2013 10:10 AM EDT [facility] Protein, UA NEGATIVE NEG 08/17/2013 10:10 AM EDT [facility] Urobilinogen, Urine Normal NORM 08/17/2013 10:10 AM EDT [facility] Nitrite, Urine NEGATIVE NEG 08/17/2013 10:10 AM EDT [facility] Leukocyte Esterase, Urine NEGATIVE NEG 08/17/2013 10:10 AM EDT [facility] Urinalysis Comments NOT REPORTED [facility] - 08/17/2013 10:10 AM EDT [facility] WBC, UA 0 TO 2 0 - 5 /HPF 08/17/2013 10:10 AM EDT [facility] RBC, UA None 0 - 2 /HPF 08/17/2013 10:10 AM EDT [facility] Casts UA NOT REPORTED 0 - 2 /LPF [facility] Crystals, UA NOT REPORTED NONE /HPF [facility] Epithelial Cells, UA 0 TO 2 0 - 25 /HPF 08/17/2013 10:10 AM EDT [facility] Comment: Performed at [address] [place], [place] [id number] Renal Epithelial, UA NOT REPORTED 0 /HPF [facility] Bacteria, UA NOT REPORTED NONE [facility] Mucus, UA NOT REPORTED NONE [facility] Trichomonas NOT REPORTED NONE [facility] Amorphous, UA NOT REPORTED NONE [facility] Other Observations UA NOT REPORTED NREQ [facility] Yeast, UA NOT REPORTED NONE [facility] URINE SPECIMEN / Unknown 08/17/2013 8:28 AM EDT 08/17/2013 8:29 AM EDT Peewee Westfall DPArin URINE ORDERABLES Final Result Performing Organization Address City/State/[facility] Co de Phone Number [address] [address], [facility] [phone] [facility] * (ABNORMAL) Basic Metabolic Panel (08/17/2013 8:28 AM EDT) Glucose 135(H) 70 - 99 mg/dL 08/17/2013 9:30 AM EDT [facility] BUN 16 8 - 23 mg/dL 08/17/2013 9:30 AM EDT [facility] Creatinine 0.73 0.70 - 1.20 mg/dL 08/17/2013 9:30 AM EDT [facility] BUN/Creatinine Ratio 22(H) 9 - 20 08/17/2013 9:30 AM EDT [facility] Calcium 9.7 8.6 - 10.0 mg/dL 08/17/2013 9:30 AM EDT [facility] Sodium 138 136 - 145 mmol/L 08/17/2013 9:30 AM EDT [facility] Potassium 4.5 3.5 - 5.1 mmol/L 08/17/2013 9:30 AM EDT [facility] Chloride 104 98 - 107 mmol/L 08/17/2013 9:30 AM EDT [facility] CO2 26 20 - 31 mmol/L 08/17/2013 9:30 AM EDT [facility] Anion Gap NOT REPORTED mmol/L [facility] GFR Non- >60 >60 mL/min 08/17/2013 9:30 AM EDT [facility] GFR >60 >60 mL/min 08/17/2013 9:30 AM EDT [facility] GFR Comment 08/17/2013 9:30 AM EDT [facility] Comment: Average GFR for 60-69 years old: 85 mL/min/1.73sq m Chronic Kidney Disease: <60 mL/min/1.73sq m Kidney failure: <15 mL/min/1.73sq m GFR Staging 08/17/2013 9:30 AM EDT [facility] Comment: Stage 1: Some kidney damage normal GFR Stage 2: Mild kidney damage GFR 60-89 Stage 3: Moderate kidney damage GFR 30-59 Stage 4: Severe kidney damage GFR 15-29 Stage 5: Severe kidney damage GFR <15 ESRD - chronic treatment by dialysis or transplant Performed at [address] [place] [address] BLOOD SPECIMEN / Unknown 08/17/2013 8:28 AM EDT 08/17/2013 8:29 AM EDT Peewee Westfall DPArin CHEMISTRY ORDERABLES Final Re sult [address] [id number], [facility] [phone] [facility] * (ABNORMAL) CBC (08/17/2013 8:28 AM EDT) WBC 8.5 3.5 - 11.0 k/uL 08/17/2013 9:13 AM EDT [facility] RBC 5.32 4.5 - 5.9 m/uL 08/17/2013 9:13 AM EDT [facility] Hemoglobin 16.6 13.5 - 17.0 g/dL 08/17/2013 9:13 AM EDT [facility] Hematocrit 49.3 41 - 53 % 08/17/2013 9:13 AM EDT [facility] MCV 92.6 80 - 100 fL 08/17/2013 9:13 AM EDT [facility] MCH 31.2 26 - 34 pg 08/17/2013 9:13 AM EDT [facility] MCHC 33.7 31 - 37 g/dL 08/17/2013 9:13 AM EDT [facility] RDW 14.5(H) 10.0 - 14.0 % 08/17/2013 9:13 AM EDT [facility] Platelets 184 140 - 450 k/uL 08/17/2013 9:13 AM EDT [facility] Comment: Performed at [address] [place] [address] MPV NOT REPORTED 6.0 - 12.0 fL [facility] BLOOD SPECIMEN / Unknown 08/17/2013 8:28 AM EDT 08/17/2013 8:29 AM EDT us Peewee Westfall DPM HEMATOLOGY ORDERABLES Final R esult [facility] [address] [place] [id number] [phone] [facility] documented in this encounter Visit Diagnoses Not on filedocumented in this encounter Care Teams Care Transition Manager Relationship Specialty Start Date End Date Diego Bartlett MD PCP - General 05/10/11 07/24/19 documented as of this encounter
--- OUTSIDE RECORDS SUMMARY | 2015-04-11 02:26 | XMS_ITS | Encounter Summary ---
Author Organization [facility] Address [address] [place] [address] Care Team Providers Care Paper Grader Name Role Phone Diego Bartlett MD Primary Care Provider [phone] Encounter Details Date Type Department Care Team (Late st Contact Info) Description 04/11/2015 1:26 AM EST Hospital Encounter M[facility] PRE ADMIT [address] [phone] Tiburcio Brennan MD [address] [place] [address] Social History Tobacco Use Types [...] Info) Description 02/22/2025 1:[address] [facility] [address] [place], [place] [id number] phlebotomy documented as of this encounter Procedures [...] 12 lead (04/11/2015 9:32 AM EST) Pathologist [facility] Ventricular Rate 77 BPM [facility] Atrial Rate 77 BPM [facility] P-R Interval 174 ms [facility] QRS Duration 80 ms [facility] Q-T Interval 360 ms [facility] QTc Calculation (Bazett) 407 ms [facility] RADIOLOGY P [place] 51 degrees [facility] RADI[facility] R [place] 17 degrees [facility] T [place] 51 degrees [facility]Y 04/11/2015 9:32 AM EST Narrative [facility] RADIOLOGY - 04/11/2015 3:49 PM EST Normal sinus rhythmPossible Inferior infarct , age undeterminedAbnormal ECGWhen compared with ECG of 24-OCT-2013 18:45,No significant change was found Procedure Note Result, Unknown Provider - 04/11/2015 Normal sinus rhythmPossible Inferior infarct , age undeterminedAbnormalECGWhen compared with ECG of 24-OCT-2013 18:45,No significant change wasfound us Tiburcio Brennan MD ECG ORDERABLES Final Result [facility] RADIOLOG[facility] * XR Chest Standard [...] Specimen Description .SUDHAKAR 04/11/2015 8:47 AM EST [facility] Special Requests NOT REPORTED 04/11/2015 8:47 AM EST [facility] Culture NEGATIVE FOR: METHICILLIN RESISTANT STAPHYLOCOCCUS AUREUS 04/14/2015 10:55 AM EST [facility] Culture Performed at [address] [place] [address] 04/14/2015 10:55 AM EST [facility] Culture 04/14/2015 10:55 AM EST [facility] Status FINAL 04/14/2015 04/14/20 15 10:55 AM EST [facility] ANTERIOR NARES SWAB / Unknown 04/11/2015 8:50 AM EST 04/11/2015 8:55 AM EST Tiburcio Brennan MD MICROBIOLOGY - GENERAL ORDERA BLES Final Result [facility] [address] [place], [place] [address] [phone] [facility] * (ABNORMAL) Basic Metabolic Panel (04/11/2015 8:43 AM EST) Glucose 157(H) 70 - 99 mg/dL 04/11/2015 10:03 AM EST [facility] BUN 11 8 - 23 mg/dL 04/11/2015 10:03 AM EST [facility] Creatinine 0.74 0.70 - 1.20 mg/dL 04/11/2015 10:03 AM EST [facility] BUN/Creatinine Ratio 15 9 - 20 04/11/2015 10:03 AM EST [facility] Calcium 9.6 8.6 - 10.4 mg/dL 04/11/2015 10:03 AM EST [facility] Sodium 138 135 - 144 mmol/L 04/11/2015 10:03 AM EST [facility] Potassium 4.3 3.7 - 5.3 mmol/L 04/11/2015 10:03 AM EST [facility] Chloride 100 98 - 107 mmol/L 04/11/2015 10:03 AM EST [facility] CO2 25 20 - 31 mmol/L 04/11/2015 10:03 AM EST [facility] Anion Gap 13 9 - 17 mmol/L 04/11/2015 10:03 AM EST [facility] GFR Non- >60 >60 mL/min 04/11/2015 10:03 AM EST [facility] GFR >60 >60 mL/min 04/11/2015 10:03 AM EST [facility] GFR Comment 04/11/2015 10:03 AM EST [facility] Comment: Average GFR for 60-69 years [...] treatment by dialysis or transplant Performed at [address] [place] [address] ([phone] BLOOD SPECIMEN / Unknown 04/11/2015 8:43 AM EST 04/11/2015 8:44 AM EST us Tiburcio Brennan MD CHEMISTRY ORDERABLES Final Re sult [address] [address] [phone] [facility] * (ABNORMAL) CBC auto differential (04/11/2015 [...] - 100 fL 04/11/2015 9:29 AM EST [facility] MCH 31.3 26 - 34 pg 04/11/2015 9:29 AM EST [facility] MCHC 32.3 31 - 37 g/dL 04/11/2015 9:29 AM EST [facility] RDW 15.6(H) 12.1 - 15.2 % 04/11/2015 9:29 AM EST [facility] Platelets 172 140 - 450 k/uL 04/11/2015 9:29 AM EST [facility] MPV NOT REPORTED 6.0 - 12.0 fL [facility] Differential Type NOT REPORTED [facility] Seg Neutrophils 74(H) 36 - [...] AM EST [facility] Comment: Performed at [address] [place] [address] ([phone] WBC Morphology NOT REPORTED [facility] RBC Morphology NOT REPORTED [facility] Platelet Estimate NOT REPORTED [facility] BLOOD SPECIMEN / Unknown 04/11/2015 8:43 AM EST 04/11/2015 8:44 AM EST us Tiburcio Brennan MD HEMATOLOGY ORDERABLES Final R esult [facility] [address] [place] [id number] [phone] [facility] documented in this encounter Visit Diagnoses Not on filedocumented in this encounter Care Teams Paper Grader Relationship Specialty Start Date End Date Diego Bartlett MD PCP - General 05/10/11 07/24/19 documented as of this encounter
--- OUTSIDE RECORDS SUMMARY | 2015-05-08 02:32 | XMS_ITS | Encounter Summary ---
Author Organization Scott Flanagan [facility]up[facility] Address [address] [place] [address] Care Team Providers Care Medical Oncology Physician Name Role Phone Diego Bartlett MD Primary Care Provider [phone] Encounter Details Date Type Department Care Team (Late st Contact Info) Description 05/08/2015 1:32 AM EST Hospital Encounter MTH PRE ADMIT [address] [place] [address] Tiburcio Brennan MD [address] [place] [address] Social History Tobacco Use Types [...] 1:00 PM EDT Appointment [facility] [address] [place] [address] phlebotomy documented as of this encounter Procedures Procedure Name Priority Date/Time Associated Diagnosis Comments TYPE AND SCREEN Routine 05/08/2015 12:42 PM EST documented in this encounter Results * Type and screen (05/08/2015 12:42 PM EST) Expiration Date 05/15/2015 5 4:00 PM EST [facility] Arm Band Number [id number] 5 4:00 PM EST [facility] ABO/Rh A POSITIVE 05/08/2015 4:00 PM EST [facility] Antibody Screen NEGATIVE 5 4:00 PM EST [facility] Comment: Performed at [address] [place] [address] ([phone] 05/08/2015 12:4 2 PM EST 05/08/2015 12:43 PM EST Tiburcio Brennan MD BLOOD BANK TEST ORDERABLES Fi nal Result [place] [id number] [phone] [facility] documented in this encounter Visit Diagnoses Not on filedocumented in this encounter Care Teams Medical Oncology Physician Relationship Specialty Start Date End Date Diego Bartlett MD PCP - General 05/10/11 07/24/19 documented as of this encounter
--- OUTSIDE RECORDS SUMMARY | 2024-11-28 14:45 | XMS_ITS | Encounter Summary ---
Author Organization [facility] Address [address] [place] [address] Care Team Providers Care Photocopying Equipment Mechanic Name Role Phone Celi Wong MD Primary Care Provider [phone] Mitch Mello MD Unavailable [phone] Jr. Julio Henson DO Unavailable [phone] Alberto Ibrahim DPM Unavailable Celi Wong MD Unavailable [phone] Julio Huddleston MD Unavailable [phone] Hudson Stevenson MD Unavailable Kitty Edmond OD [...] PM EST Narrative 05/22/2024 5:07 [place] [address] Cardiology Report Signed Patient: JUAN MIGUEL JENNINGS MR#: [id number] : 1950 Acct:[id number] Age/Sex: 74 / M ADM Date: 05/22/24 Loc: CARD Attending Dr: PAUL WEN APRN Ordering Physician: PAUL WEN APRN Date of Service: 05/22/24 Procedure(s): CA echo doppler complete Accession Number(s): [id number] cc: CELI WONG ; PAUL WEN APRN Patient Name: JUAN MIGUEL JENNINGS MR#: [id number] : 1950 Exam Date: 05/22/2024 Ordering Doctor: [...] M.D. Signed By: 05/22/241706 DD/ 05 TD/TT: Belt Cutter: Procedure Note Radiology, Radiologist, MD - 05/22/2024 [place] [address] Cardiology Report Signed Patient: JUAN MIGUEL JENNINGS JMR#: [id number] : 1950cct:[id number] Age/Sex: 74 / MADM Date: 05/22/24 Loc: CARD Attending Dr: PAUL WEN APRN Ordering Physician: PAUL WEN APRN Date of Service: 05/22/24 Procedure(s): CA echo doppler complete Accession Number(s): [id number] cc: CELI WONG ; PAUL WEN APRN Patient Name: JUAN MIGUEL JENNINGS MR#: [id number] : 1950 Exam Date: 05/22/2024 Ordering Doctor: PAUL WEN [facility] ECHOCARDIOGRAM REPORT PROCEDURE: CA ECHO DOPPLER COMPLETE [...] Diego M.D. Signed By:05/22/241706 DD/ 05 TD/TT: Belt Cutter: [facility] External Data Provider [facility] Final Result * (ABNORMAL) ALL TESTOSTERONE (05/22/2024 8:39 AM EST) [facility] TESTOSTERONE 91(A) 264 - 916 ng/dL [facility] Comment: Adult male reference interval is based on a population of healthy nonobese males (BMI <30) between 19 and 39 years old. bubba Fleming.al. JCEM 2017,102;0262-6839. PMID: [id number]. Performed at: [address] [id number] Manager Enrollment: Zeke Almaguer PhD, Phone: [phone] 05/22/2024 8:39 AM EST 05/22/2024 8:40 AM EST Narrative CLIN[facility] - 05/23/2024 11:08 AM EST us Generic External Data Provider [facility] F inal Result JONN [facility] documented in this encounter Visit Diagnoses Not on filedocumented in this encounter Additional Health Concerns Assessment Noted Time PHQ-9 Depression Total Score: 0 05/17/20 9:00 AM EST documented as of this encounter Care Teams Photocopying Equipment Mechanic Relationship Specialty Start Date End Date Celi Wong MD 112 [facility] 100 [place] [address] PCP - General Family Medicine 10/25/22 Celi Wong MD 112 [facility] 100 [place] [address] PCP - ACO Reach 08/05/23 Mitch Mello MD [address] [place] [id number] Referring Physician Cardiology 05/17/23 07/24/24 Jr. Julio Henson DO [address] [place] [address] [address] [place] [address] Referring Physician Orthopaedic Surgery 05/17/23 Alberto Ibrahim DPM [address] [place], [place] [address] Referring Physician Podiatry 05/17/23 Julio Huddleston MD [address] [place] [address] Referring Physician Family Medicine 07/25/24 Hudson Stevenson MD [address] [place] [id number] Referring Physician Urology 07/25/24 Kitty Edmond OD [address] [place] [address] Referring Physician Optometry 07/25/24 documented as of this encounter
--- OUTSIDE RECORDS SUMMARY | 2024-11-28 14:45 | XMS_ITS | Encounter Summary ---
Author Organization [facility] Address [address] [place] [address] Care Team Providers Care Delivery Director Name Role Phone Jordan Wong MD Primary Care Provider Mitch Mello MD Unavailable Jr. Julio Henson DO Unavailable Alberto Ibrahim DPM Unavailable Jordan Wong MD Unavailable [phone] Julio Huddleston MD Unavailable Hudson Stevenson MD Unavailable [phone] Kitty Edmond OD Unavailable Encounter Details Date Type Department Care Team (Late st Contact Info) Description 09/30/2023 Orders Only [facility] [address] [place] [address] Kitty Edmond, OD [address] [place] [address] Social History Tobacco Use Types Packs/Day Years [...] Anatomical Region Laterality Modality Head Other Kitty Feli OD OPHTH PHOTOGRAPHY Final Result documented in this encounter Visit Diagnoses Not on filedocumented in this encounter Additional Health Concerns Assessment Noted Time PHQ-9 Depression Total Score: 0 05/17/20 23 9:00 AM EST documented as of this encounter Care Teams Delivery Director Relationship Specialty Start Date End Date Jordan Wong MD [address] [address] (Fax) PCP - General Family Medicine 10/25/22 Jordan Wong MD [address] [address] PCP - ACO Reach 08/05/23 Mitch Mello MD [address] [place] [phone] Referring Physician Cardiology 05/17/23 07/24/24 Jr. Julio Henson DO [address] [facility] 150 [place] [address] Referring Physician Orthopaedic Surgery 05/17/23 Alberto Ibrahim DPM [address] [place] [address] Referring Physician Podiatry 05/17/23 Julio Huddleston MD [address] [place] [address] Referring Physician Family Medicine 07/25/24 Hudson Stevenson MD [address] [place] [address] Referring Physician Urology 07/25/24 Kitty Edmond OD [address] [facility] [place] [address] Referring Physician Optometry 07/25/24 documented as of this encounter
--- OUTSIDE RECORDS SUMMARY | 2024-11-28 14:45 | XMS_ITS ---
Author Organization [facility] Address [address] [place] [address] Care Team Providers Care High School Football Coach Name Role Phone Jordan Wong MD Primary [...] 10/01/2015 S/P JORY - LCX & RCA ([id number]-It. kabour) 05/13 S/P cardiac cath-05/13/14-Dr. landrum 05/13/2014 [...]
--- OUTSIDE RECORDS SUMMARY | 2024-11-28 14:45 | XMS_ITS | Encounter Summary ---
Author Organization [facility] Address [address] [place] [address] Care Team Providers Care Supervisor Electric Name Role Phone Jordan Wong MD Primary Care Provider [phone] Mitch Mello MD Unavailable Jr. Julio Henson DO Unavailable Alberto Ibrahim DPM Unavailable Jordan Wong MD Unavailable [phone] Julio Huddleston MD Unavailable Hudson Stevenson MD Unavailable Kitty Edmond OD Unavailable Encounter Details Date Type Department Care Team (Late st Contact Info) Description 04/20/2023 Orders Only [facility] [address] [place] [address] Jordan Wong MD 112 [facility] [address] [place] [address] Social History Tobacco Use Types [...] on filedocumented in this encounter Care Teams Supervisor Electric Relationship Specialty Start Date End Date Jordan Wong MD 112 [facility] 100 [place] [address] PCP - General Family Medicine 10/25/22 Jordan Wong MD 112 [facility] 100 [place] [address] PCP - ACO Reach 08/05/23 Mitch Mello MD [address] [place], [place] [phone] Referring Physician Cardiology 05/17/23 07/24/24 Jr. Julio Henson DO 112 [facility] 150 [place] [address] Referring Physician Orthopaedic Surgery 05/17/23 Alberto Ibrahim DPM [address] [place], [place] [phone] Referring Physician Podiatry 05/17/23 Julio Huddleston MD [address] [place] [address] Referring Physician Family Medicine 07/25/24 Hudson Stevenson MD [address] [place] [address] Referring Physician Urology 07/25/24 Kitty Edmond OD Count includes the [facility] [place] [address] Referring Physician Optometry 07/25/24 documented as of this encounter
--- OUTSIDE RECORDS SUMMARY | 2024-11-28 14:45 | XMS_ITS | Clinical Summary ---
Author Organization [facility] Address [address] [place] [address] Care Team Providers Care Collar Worker Name Role Phone Jordan Wong MD Primary Care Provider [phone] Allergies Active Allergy Reactions Criticality Noted Date [...] colon cancer 01/11/2023 04/08/20 23 Hx of jail use of blood thinners 01/11/2023 04/08/2023 Non-pressure [...] Department Care Team Description 09/07/2024 Orders Only [facility] [place] [address] [place] [address] Rekha, JENNY Akins Mixed hyperlipidemia; Coronary artery disease, unspecified vessel or lesion type, unspecified whether angina present, unspecified whether [place] or transplanted heart from Last 3 Months Immunizations Immunization Administration Dates Next Due Influenza, High Dose Seasona l, Preservative Free 03/05/2019,03/03/2018 Influenza, Seasonal, Quadriv alent, Adjuvanted 05/06/2021,03/22/2020 Influenza, Unspecified 03/06/2016 Influenza, injectable, quadr ivalent, preservative free 04/06/2017,01/23/2016 Influenza, seasonal, injectable 03/23/2014,04/06 Novel [id number], preservative-free 04/21 Pneumococcal Conjugate PCV 13 03/03/2018 [...] age to complete this topic Insurance MEDICARE [facility] Care Teams Collar Worker Relationship Specialty Start Date End Date Jordan Wong MD [address] [place] [address] PCP - General 03/23/22
--- OUTSIDE RECORDS SUMMARY | 2024-11-28 14:45 | XMS_ITS | Clinical Summary ---
Author Organization [facility] Address [address] [place] [address] Care Team Providers Care Career Services Manager Name Role Phone Jordan Wong MD Primary Care Provider Jr. Julio Henson DO Unavailable [phone] Alberto Ibrahim DPM Unavailable [phone] Jordan Wong MD Unavailable [phone] Julio Huddleston MD Unavailable Hudson Stevenson MD Unavailable [phone] Kitty Edmond OD Unavailable Allergies Active Allergy [...] 30 mg by mouth Daily 06/08/19 25 Active timolol (Timoptic) 0.5 % ophthalmic solution Administer 1 drop into both eyes in the morning and 1 drop before bedtime. 05/31/20 24 Active pioglitazone (Actos) 30 MG tabletIndication s:Type 2 diabetes mellitus with diabetic polyneuropathy, without long-term current use of insulin (HCC) Take 1 tablet (30 mg) by mouth [...] for muscle spasms 90 tablet 10/19/19 25 Active famotidine (Pepcid) 20 MG tabletIndication s:Dyspepsia [...] pain 540 capsule 1 10/19/19 25 Active Active Problems Problem Noted Date Diagnosed Date OAB (overactive bladder) 07/16/2024 Acquired hammer toes of both feet 01/11/2023 BPH with urinary obstruction 01/11/2023 Chronic constipation 01/11/2023 Elevated PSA 01/11/2023 Open-angle glaucoma 01/11/2023 History of colon cancer 01/11/2023 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 01/11/2023 Hypogonadism male [...] 05/26/2021 4 Unilateral primary osteoarthritis, left knee 01/13/2023 Internal [...] FM [address] [place] [address] Jordan Wong MD 09/18/2024 9:30 AM EDT Office Visit [facility] [address] [facility] 100 [place] [address] Jordan Wong MD Essential hypertension (Primary Dx); Microalbuminuria; Type 2 diabetes mellitus with diabetic microalbuminuria, without long-term current use of insulin (HCC); Type 2 diabetes mellitus with diabetic polyneuropathy, without long-term current use of insulin (HCC); Mixed hyperlipidemia ; Adverse reaction to statin medication 09/18/2024 Bamboo flowsheet [facility] [address] [facility] 100 [place] [address] Jordan Wong MD 09/18/2024 Travel 09/13/2024 Refill [facility] [address] [facility] 100 [place] [address] Jordan Wong MD Dyspepsia 09/11/2024 Telephone [facility] [address] [facility] 100 [place] [address] Pamella Sam, JENNY Lab Orders from Last 3 Months Immunizations Immunization Administration Dates Next Due Influenza, [id number] 03/06/2016 Influenza, High Dose Seasona l, Preservative Free 03/05/2019,03/03/2018 Influenza, High-dose Seasona l, Quadrivalent, Preservative Free 03/04/2019,03/06/2016 Influenza, Seasonal, Quadriv alent, Adjuvanted 02/28/2023,04/16/2022,05/06/2021,03/22 Influenza, Unspecified 02/28/2023,2021,05/06/2021,03/22,03/05/2019,03/03/2018,04/06/2017 ,03/06/2016,03/06/2016,01/23/2016,03/06,04/06/2013 Influenza, injectable, quadr ivalent, preservative free 04/06/2017,01/23/2016 Influenza, seasonal, injectable 03/28/2024,03/23,04/06/2013 Influenza, trivalent, adjuvanted 03/28/2024 Moderna Bivalent Booster Vaccination 03/23/2022 Moderna SARS-CoV-2 50mcg/0.5mL Booster Novel [id number], preservative-free 04/21/2009 Pfizer Bivalent Booster 12 Y [...] Date Smoking Tobacco: Former Cigarettes Q uit: 2012 Smokeless Tobacco: Never Tobacco Cessation:Counseling Given: Yes [...] CREAT 50 Urine 09/18/2024 9:34 AM EDT Jodran Wong MD POINT OF CARE TEST ENTER/LISA [...] Performing Organization Information Site ID: QPT Name: [facility] Address: Danna Garcia , [address] [place] [id number] Director: Toan Lara MD us Jordan Wong MD LAB BLOOD ORDERABLES Final [...] et al. J. of Clin. Lipidol. 2015;9:129-169. LDL CHOLESTEROL 142(H) mg/dL (calc) [facility] Comment: Reference range: <100 Desirable range <100 mg/dL for primary prevention; <70 mg/dL for patients with CHD or diabetic patients with > or = 2 CHD risk factors. LDL-C is now calculated using the Deion-Morrissey calculation, which is a validated novel method providing better accuracy than the Friedewald equation in the estimation of LDL-C. Deion SS et al. MAHENDRA. 2013;310(19): 2820-3911 (http://education.Spock.[employer]/faq/ZVR836) CHOL/HDLC RATIO 6.1(H) <5.0 (calc) [facility] NON [...] Performing Organization Information Site ID: QPT Name: [facility] Address: [address], [address] [place] [address] Director: Toan Lara MD Jordan Wong MD [...] Performing Organization Information Site ID: QTW Name: [facility] Address: [address] [place] [phone] Director: Parvin Gray Jordan Wong MD LAB BLOOD ORDERABLES Final R esult [facility] * Diabetic Retinopathy Screening - OU - Both Eyes (09/30/2023 9:57 AM EDT) Anatomical Region Laterality Modality Head Other Kitty Edmond OD OPHTH PHOTOGRAPHY Final Result * Colonoscopy (12/17/2020 12:00 PM EDT) Anatomical Region Laterality Modality Endoscopy 12/17/2020 12:0 0 PM EDT Narrative 12/17/2020 12:00 PM EDT PERFORMED AT [facility] LOCATION:[id number] Procedure Note CONVERSION, GENERIC - 10/20/2022 PERFORMED AT [facility] LOCATION:[id number] Jordan Wong MD ENDOSCOPY PROCEDURE ORDERABL ES Final Result from Last 3 Months or Most Recently Relevant to Health Maintenance Insurance MEDICARE [facility] Advance Directives Documents on File Type Date Recorded Patient Managed Services Sales Consultant Expl anation Advance Directives and Living Will 11/20/2019 2018-05-09 Living Wi ll Advance Directives and Living Will 11/20/2019 2018-05-09 Power Of Exchange Consultant Care Teams Career Services Manager Relationship Specialty Start Date End Date Jordan Wong MD [address] [place] [address] PCP - General Family Medicine 10/25/22 Jordan Wong MD [address] [place] [address] PCP - ACO Reach 08/05/23 Jr. Julio Henson DO [address] [place] [address] Referring Physician Orthopaedic Surgery 05/17/23 Alberto Ibrahim DPM [address] [facility] [place] [address] Referring Physician Podiatry 05/17/23 Julio Huddleston MD 1355 [place] [address] Referring Physician Family Medicine 07/25/24 Hudson Stevenson MD [address] [place] [address] Referring Physician Urology 07/25/24 Kitty Edmond OD [address] [facility] [place] [address] Referring Physician Optometry 07/25/24
--- OUTSIDE RECORDS SUMMARY | 2024-11-28 14:45 | XMS_ITS | Encounter Summary ---
Author Organization [facility] Address [address] [place] [address] Care Team Providers Care Flat Grinder Operator Name Role Phone Jordan Wong MD Primary Care Provider Mitch Mello MD Unavailable Jr. Julio Henson DO Unavailable [phone] Alberto Ibrahim DPM Unavailable [phone] Jordan Wong MD Unavailable Julio Huddleston MD Unavailable Hudson Stevenson MD Unavailable [phone] Kitty Edmond OD Unavailable Encounter Details Date Type Department Care Team (Late st Contact Info) Description 05/03/2023 Orders Only [facility] [address] [place] [address] Newton Stevenson MD [address] [place], [place] [id number] Social History Tobacco Use Types Packs/Day Years [...] on filedocumented in this encounter Care Teams Flat Grinder Operator Relationship Specialty Start Date End Date Jordan Wong MD [address] [address] PCP - General Family Medicine 10/25/22 Jordan Wong MD [address] [address] PCP - ACO Reach 08/05/23 Mitch Mello MD [address] [place], [place] [address] Referring Physician Cardiology 05/17/23 07/24/24 Jr. Julio Henson DO [address] [facility] 150 [place] [address] Referring Physician Orthopaedic Surgery 05/17/23 Alberto Ibrahim DPM [address] [place], [place] [address] Referring Physician Podiatry 05/17/23 Julio Huddleston MD [address] [place] [address] Referring Physician Family Medicine 07/25/24 Hudson Stevenson MD 290 [place] [address] Referring Physician Urology 07/25/24 Kitty Edmond OD [address] [facility] [place] [place] [address] Referring Physician Optometry 07/25/24 documented as of this encounter
--- OUTSIDE RECORDS SUMMARY | 2024-11-28 14:45 | XMS_ITS | Encounter Summary ---
Author Organization [facility] Address [address] [place] [address] Care Team Providers Care Shipping & Receiving Lead Name Role Phone Celi Wong MD Primary Care Provider [phone] Mitch Mello MD Unavailable [phone] Jr. Julio Henson DO Unavailable [phone] Alberto Ibrahim DPM Unavailable [phone] Celi Wong MD Unavailable [phone] Julio Huddleston MD Unavailable [phone] Hudson Stevenson MD Unavailable Kitty Edmond OD [...] AM EST Narrative 05/18/2024 10:07 [place] [address] Nuclear Medicine Report Signed Patient: JUAN MIGUEL JENNINGS MR#: [id number] : 1950 Acct:[id number] Age/Sex: 74 / M ADM Date: 05/17/24 Loc: CARD Attending Dr: PAUL WEN APRN Ordering Physician: PAUL WEN APRN Date of Service: 05/17/24 Procedure(s): NM faith perf SPECT rest str Accession Number(s): [id number] cc: CELI WONG ; PAUL WEN APRN Patient Name: JUAN MIGUEL JENNINGS MR#: [id number] : 1950 Exam Date: 05/17/2024 Ordering Doctor: PAUL WEN CNP RADIOLOGY REPORT PROCEDURE: NM FAITH PERF SPECT [...] LOCATION: Mid-anterior. Mid-inferior. Apical anterior. Apical inferior. [place]. SIZE: Large (5 or more segments). SEVERITY: [...] Signed By: 05/18/24 1007 DD/ 1006 TD/TT: Dry Kiln Loader: Procedure Note Radiology, Radiologist, - 05/18/2024 [place] [address] Nuclear Medicine Report Signed Patient: JUAN MIGUEL JENNINGS R#: [id number] : 1950cct:[id number] Age/Sex: 74 / MADM Date: 05/17/24 Loc: CARD Attending Dr: PAUL WEN APRN Ordering Physician: PAUL WEN APRN Date of Service: 05/17/24 Procedure(s): NM faith perf SPECT rest str Accession Number(s): [id number] cc: CELI WONG ; PAUL WEN APRN Patient Name: JUAN MIGUEL JENNINGS MR#: [id number] : 1950 Exam Date: 05/17/2024 Ordering Doctor: PAUL WEN MANAGEMENT ARCHITECT RADIOLOGY REPORT PROCEDURE: NM FAITH PERF SPECT [...] LOCATION: Mid-anterior. Mid-inferior. Apical anterior. Apical inferior. [place]. SIZE: Large (5 or more segments). SEVERITY: [...] M.D. Signed By:05/18/24 1007 DD/ 1006 TD/TT: Dry Kiln Loader: us Generic External Data Provider [facility] Final Result documented in this encounter Visit Diagnoses Not on filedocumented in this encounter Additional Health Concerns Assessment Noted Time PHQ-9 Depression Total Score: 0 05/17/20 23 9:00 AM EST documented as of this encounter Care Teams Shipping & Receiving Lead Relationship Specialty Start Date End Date Celi Wong MD 112 [place] [address] PCP - General Family Medicine 10/25/22 Celi Wong MD [address] [place], [place] [address] PCP - ACO Reach 08/05/23 Mitch Mello MD 1100 [place] [address] Referring Physician Cardiology 05/17/23 07/24/24 Jr. Julio Henson DO [address] [place], [place] [address] Referring Physician Orthopaedic Surgery 05/17/23 Alberto Ibrahim DPM 1900 [place], [place] [address] Referring Physician Podiatry 05/17/23 Julio Huddleston MD 1355 [place] [address] Referring Physician Family Medicine 07/25/24 Hudson Stevenson MD 290 [place] [address] Referring Physician Urology 07/25/24 Kitty Edmond OD [address] [facility] [place] [place] [address] Referring Physician Optometry 07/25/24 documented as of this encounter
--- OUTSIDE RECORDS SUMMARY | 2024-11-28 14:45 | XMS_ITS | Encounter Summary ---
Author Organization [facility] Address [address] [place] [address] Care Team Providers Care Crop Production Advisor Name Role Phone Jordan Wong MD Primary Care Provider [phone] Mitch Mello MD Unavailable [phone] Jr. Julio Henson DO Unavailable [phone] Alberto Ibrahim DPM Unavailable [phone] Jordan Wong MD Unavailable [phone] Julio Huddleston MD Unavailable [phone] Hudson Stevenson MD Unavailable Kityt Edmond OD Unavailable Encounter Details Date Type Department Care Team (Late st Contact Info) Description 03/07/2023 Abstract [facility] [address] [place] [address] Alberto Ibrahim, DPM 1900 [place], [place] [address] Social History Tobacco Use Types Packs/Day Years [...] on filedocumented in this encounter Care Teams Crop Production Advisor Relationship Specialty Start Date End Date Jordan Wong MD 112 [facility] 100 [place] [address] (Fax) PCP - General Family Medicine 10/25/22 Jordan Wong MD 112 [facility] 100 [place] [address] PCP - ACO Reach 08/05/23 Mitch Mello MD 1100 [place] [address] Referring Physician Cardiology 05/17/23 07/24/24 Jr. Julio Henson DO 112 [facility] 150 [place] [address] Referring Physician Orthopaedic Surgery 05/17/23 Alberto Ibrahim DPM 1900 [place] [address] Referring Physician Podiatry 05/17/23 Julio Huddleston MD 1355 [place] [address] Referring Physician Family Medicine 07/25/24 Hudson Stevenson MD 290 [place] [address] Referring Physician Urology 07/25/24 Kitty Edmond OD 2331 [place] [address] Referring Physician Optometry 07/25/24 documented as of this encounter
--- OUTSIDE RECORDS SUMMARY | 2024-11-28 14:45 | XMS_ITS | Encounter Summary ---
Author Organization [facility] Address [address] [place] [address] Care Team Providers Care Impregnator Helper Name Role Phone Jordan Wong MD Primary Care Provider Mitch Mello MD Unavailable [phone] Jr. Julio Henson DO Unavailable [phone] Alberto Ibrahim DPM Unavailable Jordan Wong MD Unavailable [phone] Julio Huddleston MD Unavailable [phone] Hudson Stevenson MD Unavailable Kitty Edmond OD Unavailable Encounter Details Date Type Department Care Team (Late st Contact Info) Description 05/25/2023 Orders Only [facility] [address] [place] [address] Jordan Wong MD 112 [facility] [address] [place] [address] Social History Tobacco Use Types [...] documented as of this encounter Care Teams Impregnator Helper Relationship Specialty Start Date End Date Jordan Wong MD 112 [facility] 100 [place] [address] PCP - General Family Medicine 10/25/22 Jordan Wong MD 112 [facility] 100 [place] [address] PCP - ACO Reach 08/05/23 Mitch Mello MD 1100 [place] [address] Referring Physician Cardiology 05/17/23 07/24/24 Jr. Julio Henson DO 112 [facility] 150 [place] [address] Referring Physician Orthopaedic Surgery 05/17/23 Alberto Ibrahim DPM [address] [place] [address] Referring Physician Podiatry 05/17/23 Julio Huddleston MD 135[address] [place] [address] Referring Physician Family Medicine 07/25/24 Hudson Stevenson MD 290 [place] [address] Referring Physician Urology 07/25/[address] [facility] [address] Referring Physician Optometry 07/25/24 documented as of this encounter
--- OUTSIDE RECORDS SUMMARY | 2024-11-28 14:45 | XMS_ITS | Encounter Summary ---
Author Organization [facility] Address [address] [place] [address] Care Team Providers Care Pastry Supervisor Name Role Phone Jordan Wong MD Primary Care Provider [phone] Mitch Mello MD Unavailable Jr. Julio Henson DO Unavailable Alberto Ibrahim DPM Unavailable [phone] Jordan Wong MD Unavailable [phone] Julio Huddleston MD Unavailable [phone] Hudson Stevenson MD Unavailable Kitty Edmond OD Unavailable Encounter Details Date Type Department Care Team (Late st Contact Info) Description 10/28/2023 Abstract [facility] [address] [place] [address] Jordan Wong MD [address] [facility] [address] [place] [address] Social History Tobacco Use Types [...] documented as of this encounter Care Teams Pastry Supervisor Relationship Specialty Start Date End Date Jordan Wong MD 112 [facility] 100 [place] [address] PCP - General Family Medicine 10/25/22 Jordan Wong MD 112 [facility] 100 [place] [address] PCP - ACO Reach 08/05/23 Mitch Mello MD 1100 [place] [address] Referring Physician Cardiology 05/17/23 07/24/24 Jr. Julio Henson DO 112 [facility] 150 [place] [address] Referring Physician Orthopaedic Surgery 05/17/23 Alberto Ibrahim DPM [address] [place] [address] Referring Physician Podiatry 05/17/23 Julio Huddleston MD 1355 [place] [address] Referring Physician Family Medicine 07/25/24 Hudson Stevenson MD 290 [place] [address] Referring Physician Urology 07/25/24 Kitty Edmond OD [address] [facility] [place] [address] Referring Physician Optometry 07/25/24 documented as of this encounter
--- OUTSIDE RECORDS SUMMARY | 2024-11-28 14:45 | XMS_ITS | Encounter Summary ---
Author Organization [facility] Address [address] [place] [address] Care Team Providers Care Car Jockey Name Role Phone Jordan Wong MD Primary Care Provider Mitch Mello MD Unavailable [phone] Jr. Julio Henson DO Unavailable Alberto Ibrahim DPM Unavailable [phone] Jordan Wong MD Unavailable [phone] Julio Huddleston MD Unavailable Hudson Stevenson MD Unavailable [phone] Kitty Edmond OD Unavailable Encounter Details Date Type Department Care Team (Late st Contact Info) Description 01/19/2023 Abstract [facility] 1900 [place] [address] Alberto Ibrahim, DPM 1900 [place], [place] [address] Social History Tobacco Use Types Packs/Day Years [...] on filedocumented in this encounter Care Teams Car Jockey Relationship Specialty Start Date End Date Jordan Wong MD 112 [facility] 100 [place] [address] PCP - General Family Medicine 10/25/22 Jordan Wong MD [address] [address] PCP - ACO Reach 08/05/23 Mitch Mello MD 1100 [place] [address] Referring Physician Cardiology 05/17/23 07/24/24 Jr. Julio Henson DO 112 [facility] 150 [place] [address] Referring Physician Orthopaedic Surgery 05/17/23 Alberto Ibrahim DPM [facility] [place] [address] Referring Physician Podiatry 05/17/23 Julio Huddleston MD 1355 [place] [address] Referring Physician Family Medicine 07/25/24 Hudson Stevenson MD 290 [place], [place] [address] Referring Physician Urology 07/25/24 Kitty Edmond OD 2331 [place] [address] Referring Physician Optometry 07/25/24 documented as of this encounter
--- OUTSIDE RECORDS SUMMARY | 2024-11-28 14:45 | XMS_ITS | Clinical Summary ---
Author Organization [facility] Address [address] [place] [address] Care Team Providers Care Cigar Making Machine Supervisor Name Role Phone Jordan Wong MD [...] 10/01/2015 S/P JORY - LCX & RCA ([id number]-Oq. kabour) 05/13 S/P cardiac cath-05/13/14-Dr. 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 Resolved Problems Problem Noted Date Diagnosed Date Resolved Date Screening for colorectal cancer 02/12/2014 04/03/2018 Encounters Date Type Department Care Team Description 10/17/2024 1:00 PM EDT Office Visit [facility] Part of [address] [address] Newton Stein MD Anal cancer [...] Info) Description 02/22/2025 1:00 PM EDT Appointment [facility] [address] [place] [address] [phone] phlebotomy Health Maintenance Due Date Last Done [...] 4.00 ng/mL [facility] Comment: Performed at [facility] [address] [place] [address] [facility] [address] [place] [address] CLIA No. [id number] CAP Accreditation No. [id number] Professional Advisor: Clint Tamez M.D. 10/13/2018 9:50 AM EDT 10/13/2018 11:25 AM EDT Narrative -[facility] - 10/14/2018 2:14 AM EDT Ordering Provider: WILLI SANCHEZ us Willi Sanchez MD CHEMISTRY ORDERABLES Final Result -[facility] * (ABNORMAL) Hemoglobin A1c (08/04/2016 7:05 PM EST) Pathologist [facility] Hemoglobin A1C 6.1(H) 4.8 - 5.9 % 08/04/2016 11:12 PM EST [facility] Estimated Avg Glucose 128 mg/dL 08/04/2016 11:12 PM EST [facility] Comment: The ADA and AACC recommend providing the estimated average glucose result to permit better patient understanding of their HBA1c result. Performed at [address] [place] [address] ([phone] BLOOD SPECIMEN / Unknown 08/04/2016 7:05 PM EST 08/04/2016 10:33 PM EST us Elton Dawson MD CHEMISTRY ORDERABLES Final Resu lt [facility] [address] [phone] [facility] * US ABDOMINAL LIMITED (04/15/2014 8:53 AM EST) Anatomical Region Laterality Modality Abdomen Other 04/15/2014 8:53 AM EST Narrative 04/15/2014 9:13 AM EST FINAL Procedure: [facility] Apr 15 2014 8:53AM [id number] US ABD LIMITED Reason for Exam: ^polycythemia, [...] kidneys reveals no hydronephrosis Report Transcribed by: [facility] on Apr 15 2014 9:13A Read by: CHAPIN BAUTISTA M.D. [id number] on Apr 15 2014 9:13A Electronically Signed by: DR. CHAPIN BAUTISTA M.D. on: Apr 15 2014 9:13A Procedure Note Chapin Bautista MD - 04/15/2014 FINAL Procedure: [facility] Apr 15 2014 8:53AM [id number] US ABD LIMITED Reason for Exam: ^polycythemia, [...] kidneys reveals no hydronephrosis Report Transcribed by: [facility] on Apr 15 2014 9:13A Read by: CHAPIN BAUTISTA M.D. [id number] on Apr 15 2014 9:13A Electronically Signed by: DR. CHAPIN BAUTISTA M.D. on: Apr 15 2014 9:13A Gilda Conner MD [facility] ORDERABLES Final Res ult from Last 3 Months or Most Recently Relevant to Health Maintenance [place] [address] [employer] MEDICARE SUPP Advance Directives Documents on File Type Date Recorded Patient Cashier Associate Expl anation ACP-Power of 6Th Grade Teacher 08/31/2013 9:46 AM ACP-Advance Directive 08/31/2013 9:46 [...] 2:36 PM 05/13/2014 9:20 PM Care Teams Cigar Making Machine Supervisor Relationship Specialty Start Date End Date Jordan Wong MD PCP - General 07/25/19
--- OUTSIDE RECORDS SUMMARY | 2024-11-28 14:45 | XMS_ITS | Encounter Summary ---
Author Organization [facility] Address [address] [place] [address] Care Team Providers Care Packing Machine Feeder Name Role Phone Jordan Wong MD Primary Care Provider Mitch Mello MD Unavailable [phone] Jr. Julio Henson DO Unavailable Alberto Ibrahim DPM Unavailable [phone] Jordan Wong MD Unavailable [phone] Julio Huddleston MD Unavailable [phone] Hudson Stevenson MD Unavailable [phone] Kitty Edmond OD Unavailable Encounter Details Date Type Department Care Team (Late st Contact Info) Description 05/21/2024 Abstract [facility] [address] [place] [address] Alberto Ibrahim, DPM 1900 [place], [place] [id number] Social History Tobacco Use Types Packs/Day Years [...] documented as of this encounter Care Teams Packing Machine Feeder Relationship Specialty Start Date End Date Jordan Wong MD 112 [facility] 100 [place] [address] PCP - General Family Medicine 10/25/22 Jordan Wong MD 112 [facility] 100 [place] [address] PCP - ACO Reach 08/05/23 Mitch Mello MD 1100 [place] [address] Referring Physician Cardiology 05/17/23 07/24/24 Jr. Julio Henson DO 112 [facility] 150 [place] [address] Referring Physician Orthopaedic Surgery 05/17/23 Alberto Ibrahim DPM [address] [place] [address] Referring Physician Podiatry 05/17/23 Julio Huddleston MD 1355 [place] [address] Referring Physician Family Medicine 07/25/24 Hudson Stevenson MD 290 [place] [address] Referring Physician Urology 07/25/24 Kitty Edmond OD [address] [place] [address] Referring Physician Optometry 07/25/24 documented as of this encounter
--- OUTSIDE RECORDS SUMMARY | 2024-11-28 14:45 | XMS_ITS | Encounter Summary ---
Author Organization [facility] Address [address] [place] [address] Care Team Providers Care Store Clerk Checker Name Role Phone Jordan Wong MD Primary Care Provider Mitch Mello MD Unavailable [phone] Jr. Julio Henson DO Unavailable [phone] Alberto Ibrahim DPM Unavailable Jordan Wong MD Unavailable Julio Huddleston MD Unavailable [phone] Hudson Stevenson MD Unavailable Kitty Edmond OD Unavailable Encounter Details Date Type Department Care Team (Late st Contact Info) Description 04/14/2023 Orders Only [facility] [address] [place] [id number] Julio Huddleston MD [address] [place] [address] Social History Tobacco Use Types [...] on filedocumented in this encounter Care Teams Store Clerk Checker Relationship Specialty Start Date End Date Jordan Wong MD 112 [facility] 100 [place] [address] PCP - General Family Medicine 10/25/22 Jordan Wong MD 112 [facility] 100 [place] [address] PCP - ACO Reach 08/05/23 Mitch Mello MD [address] [place] [address] Referring Physician Cardiology 05/17/23 07/24/24 Jr. Julio Henson DO [address] [address] Referring Physician Orthopaedic Surgery 05/17/23 Alberto Ibrahim DPM [address] [facility] [address] Referring Physician Podiatry 05/17/23 Julio Huddleston MD [address] [place] [address] Referring Physician Family Medicine 07/25/24 Hudson Stevenson MD [address] [place] [address] Referring Physician Urology 07/25/24 Kitty Edmond OD [address] [facility] [place] [address] Referring Physician Optometry 07/25/24 documented as of this encounter
--- OUTSIDE RECORDS SUMMARY | 2024-11-28 14:45 | XMS_ITS | Encounter Summary ---
Author Organization [facility] Address [address] [place] [address] Care Team Providers Care Machinery Dismantler Name Role Phone Jordan Wong MD Primary Care Provider [phone] Mitch Mello MD Unavailable [phone] Jr. Julio Henson DO Unavailable Alberto Ibrahim DPM Unavailable Jordan Wong MD Unavailable [phone] Julio Huddleston MD Unavailable [phone] Hudson Stevenson MD Unavailable [phone] Kitty Edmond OD Unavailable Encounter Details Date Type Department Care Team (Late st Contact Info) Description 10/25/2023 Orders Only [facility] [address] [place] [address] Newton Stevenson MD [address] [place], [place] [id number] Social History Tobacco Use Types Packs/Day Years [...] documented as of this encounter Care Teams Machinery Dismantler Relationship Specialty Start Date End Date Jordan Wong MD [address] [address] PCP - General Family Medicine 10/25/22 Jordan Wong MD [address] [address] PCP - ACO Reach 08/05/23 Mitch Mello MD [address] [place] [address] Referring Physician Cardiology 05/17/23 07/24/24 Jr. Julio Henson DO 112 [facility] [address] [place] [address] Referring Physician Orthopaedic Surgery 05/17/23 Alberto Ibrahim DPM [address] [place], [place] [id number] Referring Physician Podiatry 05/17/23 Julio Huddleston MD [address] [place] [address] Referring Physician Family Medicine 07/25/24 Hudson Stevenson MD [address] [place] [address] Referring Physician Urology 07/25/24 Kitty Edmond OD 2331 [place] [address] Referring Physician Optometry 07/25/24 documented as of this encounter
== END 2024-11-28 14:43 | disposition home or self-care (01) ==
LOC: WC 14:43
PROVIDERS: PCP Family Medicine; Visit Provider Podiatrist Foot & Ankle Surgery
DX: E11.621 Type 2 diabetes mellitus with foot ulcer (principal); L97.522 Non-pressure chronic ulcer of other part of left foot with fat layer exposed; L97.512 Non-pressure chronic ulcer of other part of right foot with fat layer exposed
CPT/HCPCS: 11043

== ENCOUNTER 2024-12-21 07:32 | Outpatient (RCR) | payer MEDICARE, SELFPAY ==
[2024-12-21 10:13] VITALS: BP 161/83; PULSE 86; TEMP 36; O2SAT 97
[2024-12-21] MEDS: INCLISIRAN SODIUM 284 MG/1.5 ML SYRINGE SQ (10:18)
== END 2025-01-03 23:59 | disposition home or self-care (01) ==
LOC: INF 07:32
PROVIDERS: PCP Family Medicine; Visit Provider Internal Medicine Interventional Cardiology
DX: E78.5 Hyperlipidemia, unspecified (principal); I25.10 Atherosclerotic heart disease of native coronary artery without angina pectoris
CPT/HCPCS: 96372; J1306

== ENCOUNTER 2024-12-26 07:52 | Outpatient (OUT) | payer MEDICARE, SELFPAY ==
--- OUTSIDE RECORDS SUMMARY | 2010-08-31 06:30 | XMS_ITS | Encounter Summary ---
Author Organization [facility] Address [address], [address] [place] [address] Care Team Providers Care Production Line Technician Name Role Phone Unavailable Primary Care Provider Unavailabl e Encounter Details Date Type Department Care Team (Late Contact Info) Description 08/31/2010 6:30 AM EDT Hospital Encounter [facility] Department [address] [place] [address] Altaf Velázquez MD [address] [place] [address] Social History Tobacco Use Types Packs/Day Years Used Date Smoking Tobacco: Former Cigarettes 1 20 0 08/31/1979 - 08/31/1999 Smokeless Tobacco: Never Comments:quit smoking in 200 0 Alcohol Use Standard Drinks/Week Comments No 0 (1 standard drink = 0.6 oz pur e alcohol) Sex and Gender Information Value Date Recorded Sex Assigned at Not on file Legal Sex Male 9:00 PM EST Gender Identity Not on file Sexual Orientation Not on file COVID-19 Exposure Response Date Recorded In the last 10 days, have yo u been in contact with someone who was confirmed or suspected to have Coronavirus/COVID-19? No / Unsure 01/28/2022 1:27 PM EDT documented as of this encounter Plan of Treatment Upcoming Encounters Date Type Department Care Team (Late st Contact Info) Description 02/22/2025 1:00 PM EDT Appointment [facility] [address] [place] [address] phlebotomy documented as of this encounter Visit Diagnoses Not on filedocumented in this encounter
--- OUTSIDE RECORDS SUMMARY | 2013-08-17 02:10 | XMS_ITS | Encounter Summary ---
Author Organization [facility] Address [address], [address] [place] [address] Care Team Providers Care Web Production Assistant Name Role Phone Diego Bartlett MD Primary Care Provider [phone] Encounter Details Date Type Department Care Team (Late st Contact Info) Description 08/17/2013 2:10 AM EDT Hospital Encounter MTH PRE ADMIT [address] [phone] Peewee Westfall, DPM [address] [place] [address] Social History Tobacco Use Types Packs/Day Years [...] 1:00 PM EDT Appointment [facility] [address] [place] [id number] phlebotomy documented as of this encounter [...] EDT) Pathologist [facility] Ventricular Rate 57 BPM [facility] Atrial Rate 57 BPM [facility] P-R Interval 174 ms [facility] QRS Duration 86 ms [facility] Q-T Interval 406 ms [facility] QTc Calculation (Bazett) 395 ms [facility] P [place] 64 degrees [facility] R [place] 26 degrees [facility] T [place] 46 degrees [facility] 08/17/2013 8:50 AM EDT Narrative [facility] - 08/17/2013 6:59 PM EDT Sinus bradycardiaOtherwise normal ECGWhen compared with ECG of 05-OCT-2010 08:57,No significant change was found Procedure Note 08/17/2013 Sinus bradycardiaOtherwise normal ECGWhen compared with ECG of [id number],No significant change was found us Peewee Westfall DPM ECG ORDERABLES Final Result [facility] * XR Chest Standard TWO VW (08/17/2013 8:50 AM EDT) Anatomical Region Laterality Modality Chest Radiographic Lynn ging 08/17/2013 8:50 AM EDT Narrative 08/17/2013 4:48 PM EDT FINAL Procedure: TRT Aug 17 2013 8:50AM [id number] CHEST PA AND LATERAL Reason for Exam: [...] Fish MD IMPRESSION: SEE ABOVE. Transcribed by: [facility] on Aug 17 2013 4:48P Read by: CHAPIN BAUTISTA M.D. [id number] on Aug 17 2013 11:15A Electronically Signed by: DR. CHAPIN BAUTISTA M.D. on: Aug 17 2013 4:48P Procedure Note Chapin Bautista MD - 08/17/2013 FINAL Procedure: TRT Aug 17 2013 8:50AM [id number] CHEST PA AND LATERAL Reason for Exam: [...] Fish MD IMPRESSION: SEE ABOVE. Transcribed by: [facility] on Aug 17 2013 4:48P Read by: CHAPIN BAUTISTA M.D. [id number] on Aug 17 2013 11:15A Electronically Signed by: DR. CHAPIN BAUTISTA M.D. on: Aug 17 2013 4:48P us Peewee Westfall DPM IMG DIAGNOSTIC IMAGING ORDERA BLES Edited Result - Final * (ABNORMAL) Urinalysis with microscopic (08/17/2013 8:28 AM EDT) Color, UA YELLOW YEL 08/17/2013 10:10 AM EDT [facility] Turbidity UA CLEAR CLEAR 08/17/2013 10:10 AM EDT [facility] Glucose, Ur NEGATIVE NEG 08/17/2013 10:10 AM EDT [facility] Bilirubin Urine NEGATIVE NEG 08/17/201 4 10:10 AM EDT [facility] Ketones, Urine NEGATIVE NEG 08/17/2013 10:10 AM EDT [facility] Specific Ashley, UA >1.030(H) 1.010 - 1.020 08/17/2013 10:10 AM EDT [facility] Urine Hgb NEGATIVE NEG 08/17/2013 10:10 AM EDT [facility] pH, UA 6.0 5.0 - 9.0 08/17/2013 10:10 AM EDT [facility] Protein, UA NEGATIVE NEG 08/17/2013 10:10 AM EDT [facility] Urobilinogen, Urine Normal NORM 08/17/2013 10:10 AM EDT [facility] Nitrite, Urine NEGATIVE NEG 08/17/2013 10:10 AM EDT [facility] Leukocyte Esterase, Urine NEGATIVE NEG 08/17/2013 10:10 AM EDT [facility] Urinalysis Comments NOT REPORTED [facility] - 08/17/2013 10:10 AM EDT [facility] WBC, UA 0 TO 2 0 - 5 /HPF 08/17/2013 10:10 AM EDT [facility] RBC, UA None 0 - 2 /HPF 08/17/2013 10:10 AM EDT [facility] Casts UA NOT REPORTED 0 - 2 /LPF [facility] Crystals, UA NOT REPORTED NONE /HPF [facility] Epithelial Cells, UA 0 TO 2 0 - 25 /HPF 08/17/2013 10:10 AM EDT [facility] Comment: Performed at [address] [place], [place] [id number] Renal Epithelial, UA NOT REPORTED 0 /HPF [facility] Bacteria, UA NOT REPORTED NONE [facility] Mucus, UA NOT REPORTED NONE [facility] Trichomonas NOT REPORTED NONE [facility] Amorphous, UA NOT REPORTED NONE [facility] Other Observations UA NOT REPORTED NREQ [facility] Yeast, UA NOT REPORTED NONE [facility] URINE SPECIMEN / Unknown 08/17/2013 8:28 AM EDT 08/17/2013 8:29 AM EDT Peewee Westfall DPArin URINE ORDERABLES Final Result [facility] [address] [place] [id number], [facility] [phone] [facility] * (ABNORMAL) Basic Metabolic Panel (08/17/2013 8:28 AM EDT) Glucose 135(H) 70 - 99 mg/dL 08/17/2013 9:30 AM EDT [facility] BUN 16 8 - 23 mg/dL 08/17/2013 9:30 AM EDT [facility] Creatinine 0.73 0.70 - 1.20 mg/dL 08/17/2013 9:30 AM EDT [facility] BUN/Creatinine Ratio 22(H) 9 - 20 08/17/2013 9:30 AM EDT [facility] Calcium 9.7 8.6 - 10.0 mg/dL 08/17/2013 9:30 AM EDT [facility] Sodium 138 136 - 145 mmol/L 08/17/2013 9:30 AM EDT [facility] Potassium 4.5 3.5 - 5.1 mmol/L 08/17/2013 9:30 AM EDT [facility] Chloride 104 98 - 107 mmol/L 08/17/2013 9:30 AM EDT [facility] CO2 26 20 - 31 mmol/L 08/17/2013 9:30 AM EDT [facility] Anion Gap NOT REPORTED mmol/L [facility] GFR Non- >60 >60 mL/min 08/17/2013 9:30 AM EDT [facility] GFR >60 >60 mL/min 08/17/2013 9:30 AM EDT [facility] GFR Comment 08/17/2013 9:30 AM EDT [facility] Comment: Average GFR for 60-69 years old: 85 mL/min/1.73sq m Chronic Kidney Disease: <60 mL/min/1.73sq m Kidney failure: <15 mL/min/1.73sq m GFR Staging 08/17/2013 9:30 AM EDT [facility] Comment: Stage 1: Some kidney damage normal GFR Stage 2: Mild kidney damage GFR 60-89 Stage 3: Moderate kidney damage GFR 30-59 Stage 4: Severe kidney damage GFR 15-29 Stage 5: Severe kidney damage GFR <15 ESRD - chronic treatment by dialysis or transplant Performed at [address] [place] [address] BLOOD SPECIMEN / Unknown 08/17/2013 8:28 AM EDT 08/17/2013 8:29 AM EDT Peewee Westfall DPArin CHEMISTRY ORDERABLES Final Re sult [place] [id number], [facility] [phone] [facility] * (ABNORMAL) CBC (08/17/2013 8:28 AM EDT) WBC 8.5 3.5 - 11.0 k/uL 08/17/2013 9:13 AM EDT [facility] RBC 5.32 4.5 - 5.9 m/uL 08/17/2013 9:13 AM EDT [facility] Hemoglobin 16.6 13.5 - 17.0 g/dL 08/17/2013 9:13 AM EDT [facility] Hematocrit 49.3 41 - 53 % 08/17/2013 9:13 AM EDT [facility] MCV 92.6 80 - 100 fL 08/17/2013 9:13 AM EDT [facility] MCH 31.2 26 - 34 pg 08/17/2013 9:13 AM EDT [facility] MCHC 33.7 31 - 37 g/dL 08/17/2013 9:13 AM EDT [facility] RDW 14.5(H) 10.0 - 14.0 % 08/17/2013 9:13 AM EDT [facility] Platelets 184 140 - 450 k/uL 08/17/2013 9:13 AM EDT [facility] Comment: Performed at [address] [place] [address] MPV NOT REPORTED 6.0 - 12.0 fL [facility] BLOOD SPECIMEN / Unknown 08/17/2013 8:28 AM EDT 08/17/2013 8:29 AM EDT us Peewee Westfall DPM HEMATOLOGY ORDERABLES Final R esult [facility] [address] [place] [id number] [phone] [facility] documented in this encounter Visit Diagnoses Not on filedocumented in this encounter Care Teams Web Production Assistant Relationship Specialty Start Date End Date Diego Bartlett MD PCP - General 05/10/11 07/24/19 documented as of this encounter
--- OUTSIDE RECORDS SUMMARY | 2015-04-11 02:26 | XMS_ITS | Encounter Summary ---
Author Organization [facility] Address [address], [address] [place] [address] Care Team Providers Care Asic Design Engineer Name Role Phone Diego Bartlett MD Primary Care Provider [phone] Encounter Details Date Type Department Care Team (Late st Contact Info) Description 04/11/2015 1:26 AM EST Hospital Encounter MTH PRE ADMIT [address] [phone] Tiburcio Brennan MD [address] [place] [address] Social History Tobacco Use Types [...] 1:00 PM EDT Appointment [facility] [address] [place], [place] [phone] phlebotomy documented as of this encounter Procedures [...] 12 lead (04/11/2015 9:32 AM EST) Pathologist [facility] Ventricular Rate 77 BPM [facility] Atrial Rate 77 BPM [facility] P-R Interval 174 ms [facility] QRS Duration 80 ms [facility] Q-T Interval 360 ms [facility] QTc Calculation (Bazett) 407 ms [facility] P [place] 51 degrees [facility] R [place] 17 degrees [facility] T [place] 51 degrees [facility] 04/11/2015 9:32 AM EST Narrative [facility] - 04/11/2015 3:49 PM EST Normal sinus rhythmPossible Inferior infarct , age undeterminedAbnormal ECGWhen compared with ECG of 24-OCT-2013 18:45,No significant change was found Procedure Note Result, Unknown Provider - 04/11/2015 Normal sinus rhythmPossible Inferior infarct , age undeterminedAbnormalECGWhen compared with ECG of 24-OCT-2013 18:45,No significant change wasfound us Tiburcio Brennan MD ECG ORDERABLES Final Result [facility] * XR Chest [...] Specimen Description .SUDHAKAR 04/11/2015 8:47 AM EST [facility] Special Requests NOT REPORTED 04/11/2015 8:47 AM EST [facility] Culture NEGATIVE FOR: METHICILLIN RESISTANT STAPHYLOCOCCUS AUREUS 04/14/2015 10:55 AM EST [facility] Culture Performed at [address] [place] [address] 04/14/2015 10:55 AM EST [facility] Culture 04/14/2015 10:55 AM EST [facility] Status FINAL 04/14/2015 04/14/20 15 10:55 AM EST [facility] ANTERIOR NARES SWAB / Unknown 04/11/2015 8:50 AM EST 04/11/2015 8:55 AM EST Tiubrcio Brennan MD MICROBIOLOGY - GENERAL ORDERA BLES Final Result [facility] [address] [place] [address], [facility] [phone] [facility] * (ABNORMAL) Basic Metabolic Panel (04/11/2015 8:43 AM EST) Glucose 157(H) 70 - 99 mg/dL 04/11/2015 10:03 AM EST [facility] BUN 11 8 - 23 mg/dL 04/11/2015 10:03 AM EST [facility] Creatinine 0.74 0.70 - 1.20 mg/dL 04/11/2015 10:03 AM EST [facility] BUN/Creatinine Ratio 15 9 - 20 04/11/2015 10:03 AM EST [facility] Calcium 9.6 8.6 - 10.4 mg/dL 04/11/2015 10:03 AM EST [facility] Sodium 138 135 - 144 mmol/L 04/11/2015 10:03 AM EST [facility] Potassium 4.3 3.7 - 5.3 mmol/L 04/11/2015 10:03 AM EST [facility] Chloride 100 98 - 107 mmol/L 04/11/2015 10:03 AM EST [facility] CO2 25 20 - 31 mmol/L 04/11/2015 10:03 AM EST [facility] Anion Gap 13 9 - 17 mmol/L 04/11/2015 10:03 AM EST [facility] GFR Non- >60 >60 mL/min 04/11/2015 10:03 AM EST [facility] GFR >60 >60 mL/min 04/11/2015 10:03 AM EST [facility] GFR Comment 04/11/2015 10:03 AM EST [facility] Comment: Average GFR for 60-69 [...] treatment by dialysis or transplant Performed at [address] [place] [address] [phone] BLOOD SPECIMEN / Unknown 04/11/2015 8:43 AM EST 04/11/2015 8:44 AM EST us Tiburcio Brennan MD CHEMISTRY ORDERABLES Final Re sult [address] [address] [phone] [facility] * (ABNORMAL) CBC auto differential (04/11/2015 [...] MPV NOT REPORTED 6.0 - 12.0 fL [facility] Differential Type NOT REPORTED [facility] Seg Neutrophils 74(H) 36 [...] AM EST PN LAB Comment: Performed at [address] [place] [address] ([phone] WBC Morphology NOT REPORTED [facility] RBC Morphology NOT REPORTED [facility] Platelet Estimate NOT REPORTED [facility] BLOOD SPECIMEN / Unknown 04/11/2015 8:43 AM EST 04/11/2015 8:44 AM EST us Tiburcio Brennan MD HEMATOLOGY ORDERABLES Final R esult [address] [address] [phone] [facility] documented in this encounter Visit Diagnoses Not on filedocumented in this encounter Care Teams Asic Design Engineer Relationship Specialty Start Date End Date Diego Bartlett MD PCP - General 12/5/11 2/18/20 documented as of this encounter
--- OUTSIDE RECORDS SUMMARY | 2015-05-08 02:32 | XMS_ITS | Encounter Summary ---
Author Organization Scott [facility] Address [address] [facility], [address] [place] [address] Care Team Providers Care Electronics Department Manager Name Role Phone Diego Bartlett MD Primary Care Provider [phone] Encounter Details Date Type Department Care Team (Late st Contact Info) Description 05/08/2015 1:32 AM EST Hospital Encounter MTH PRE ADMIT [address] [place] [address] Tiburcio Brennan MD [address] [place] [address] Social History Tobacco Use Types [...] 1:00 PM EDT Appointment [facility] [address] [place] [address] phlebotomy documented as of this encounter Procedures Procedure Name Priority Date/Time Associated Diagnosis Comments TYPE AND SCREEN Routine 05/08/2015 12:42 PM EST documented in this encounter Results * Type and screen (05/08/2015 12:42 PM EST) Expiration Date 05/15/2015 5 4:00 PM EST [facility] Arm Band Number [id number] 5 4:00 PM EST [facility] ABO/Rh A POSITIVE 05/08/2015 4:00 PM EST [facility] Antibody Screen NEGATIVE 5 4:00 PM EST [facility] Comment: Performed at [address] [place] [address] ([phone] 05/08/2015 12:4 2 PM EST 05/08/2015 12:43 PM EST Tiburcio Brennan MD BLOOD BANK TEST ORDERABLES Fi nal Result [place] [id number] [phone] [facility] documented in this encounter Visit Diagnoses Not on filedocumented in this encounter Care Teams Electronics Department Manager Relationship Specialty Start Date End Date Diego Bartlett MD PCP - General 05/10/11 07/24/19 documented as of this encounter
--- OUTSIDE RECORDS SUMMARY | 2015-09-17 13:44 | XMS_ITS | Encounter Summary ---
Author Organization [facility] Address [address], [address] [place] [address] Care Team Providers Care Elocution Teacher Name Role Phone Diego Bartlett MD Primary Care Provider [phone] Encounter Details Date Type Department Care Team (Late Contact Info) Description 09/17/2015 1:44 PM EDT Hospital Encounter [facility] PFT [address] [place] [phone] Newton Stein MD [address] [place] [address] Social History Tobacco Use Types Packs/Day Years [...] 1:00 PM EDT Appointment [facility] [address] [place] [phone] phlebotomy documented as of this encounter Procedures Procedure Name Priority Date/Time Associated Diagnosis Comments BLOOD GAS, ARTERIAL Sunquest Label Print 09/17/2015 3:10 PM EDT documented in this encounter Results * (ABNORMAL) Blood Gas, Arterial (09/17/2015 3:10 PM EDT) pH, Arterial 7.403 7.35 - 7.45 09/17/2015 3:36 PM EDT [facility] pCO2, Arterial 41.8 35 - 45 mmHg 09/17/2015 3:36 PM EDT [facility] pO2, Arterial 78.5(L) 80 - 100 mmHg 09/17/2015 3:36 PM EDT [facility] HCO3, Arterial 25.5 22 - 26 mmol/L 09/17/2015 3:36 PM EDT [facility] Positive Base Excess, Art 0.6 0.0 - 2.0 mmol/L 09/17/2015 3:36 PM EDT [facility] Negative Base Excess, Art NOT REPORTED 0.0 - 2.0 mmol/L [facility] O2 Sat, Arterial 96.1 95 - 98 % 09/17/2015 3:36 PM EDT [facility] Total Hb NOT REPORTED 12.0 - 16.0 g/dl [facility] Oxyhemoglobin NOT REPORTED 95.0 - 98.0 % [facility] Carboxyhemoglobin 0.3 0.0 - 5.0 % 09/17/2015 3:36 PM EDT [facility] Methemoglobin 0.6 0.0 - 1.9 % 09/17/2015 3:36 PM EDT [facility] Pt Temp 37 09/17/2015 3:36 PM EDT [facility] pH, Art, Temp Adj NOT REPORTED 7.350 - 7.450 [facility] pCO2, Art, Temp Adj NOT REPORTED [facility] pO2, Art, Temp Adj NOT REPORTED 80.0 - 100.0 mmHg [facility] O2 Device/Flow/% ROOM AIR 09/17/19 16 3:36 PM EDT [facility] Respiratory Rate NOT REPORTED [facility] Brennan Test PASS 09/17/2015 3:36 PM EDT [facility] Sample Site Left Radial Artery 09/17/2015 3:36 PM EDT [facility] Comment: Performed at [address] [place] [address] ([phone] Pt. Position NOT REPORTED [facility] Mode NOT REPORTED [facility] Set Rate NOT REPORTED [facility] Total Rate NOT REPORTED [facility] VT NOT REPORTED [facility] FIO2 NOT REPORTED [facility] Peep/Cpap NOT REPORTED [facility] PSV NOT REPORTED [facility] Text for Respiratory NOT REPORTED [facility] NOTIFICATION NOT REPORTED [facility] Notification Time NOT REPORTED [facility] Blood gases 09/17/2015 3:10 PM EDT 09/17/2015 3:18 PM EDT Newton Stein MD CHP ABG ORDER Final Resu lt Performing Organization Address City/State/[facility] Co de Phone Number [facility] [address] [place] [id number] [phone] [facility] documented in this encounter Visit Diagnoses Not on filedocumented in this encounter Care Teams Elocution Teacher Relationship Specialty Start Date End Date Diego Bartlett MD PCP - General 05/10/11 07/24/19 documented as of this encounter
--- OUTSIDE RECORDS SUMMARY | 2024-12-21 11:20 | XMS_ITS | Encounter Summary ---
Author Organization [facility] Address [address] [place] [address] Care Team Providers Care Land Leasing Examiner Name Role Phone Jordan Wong MD Primary Care Provider [phone] Reason for Referral * (Routine) - Pending Review Specialty Diagnoses / Procedures Referred By Latanya clark Referred To Contact Diagnoses Pre-op evaluation Procedures ECG 12 lead unit performed Surya Gleason CNP [address] [place] [address] Phone: tel: fax: Referral ID Status Reason Start Date Expiration Date V isits Requested Visits Authorized [id number] Pending Review 12/21/2024 12/21/2025 1 1 Encounter Details Date Type Department Care Team (Late st Contact Info) Description 12/21/2024 11:20 AM EDT Office Visit [facility] [address] [place] [address] Surya Gleason CNP [address] [place] [address] Pre-op evaluation (Primary Dx); Coronary artery disease involving [place] coronary artery of [place] heart without angina pectoris; History of myocardial [...] significant medical history of CAD status post SD with stenting procedures in the past (2006, [...] chest pain Coronary artery disease with prior SD, stenting 2006 (?) Last cath was 05/13/2014 [...] 6 months No follow-ups on file. [facility] Cardiovascular Medicine [1] Past Medical History: Diagnosis [...] Pre-op evaluation- Primary Coronary artery disease involving [place] coronary artery of [place] heart without angina pectoris History of myocardial infarction Primary hypertension Unspecified essential hypertension Mixed hyperlipidemia Statin intolerance documented in this encounter Care Teams Land Leasing Examiner Relationship Specialty Start Date End Date Jordan Wong MD [address] [place] [address] PCP - General 03/23/22 documented as of this encounter
--- OUTSIDE RECORDS SUMMARY | 2024-12-26 07:57 | XMS_ITS | Clinical Summary ---
Author Organization [facility] Address [address] [facility], [address] [place] [address] Care Team Providers Care Renovator Machine Operator Name Role Phone Jordan Wong [...] 10/01/2015 S/P JORY - LCX & RCA ([id number]. kabour) 05/13 S/P cardiac cath-05/13/14-Dr. 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 Resolved Problems Problem Noted Date Diagnosed Date Resolved Date Screening for colorectal cancer 02/12/2014 04/03/2018 Encounters Date Type Department Care Team Description 10/17/2024 1:00 PM EDT Office Visit [facility] Part of [address] [address] Newton Stein MD Anal cancer [...] Info) Description 02/22/2025 1:00 PM EDT Appointment [facility] [address] [place] [id number] phlebotomy Health Maintenance Due Date Last [...] 2024 03/23/2022, 06/18/2021, 08/28/2020, Additional history exists Flu vaccine (#1) 01/04/2025 03/28/2024, , 04/16/2022, Additional history exists GFR test (Diabetes, CKD 3-4, OR last GFR 15-59) 02/21/2025 02/22/2024, 10/25/2023, 04/26/2023, Additional history exists Prostate Specific Antigen (PSA) Screening or Monitoring Discontinued 10/13/2018 Pneumococcal 50+ years Vaccine Completed 03/06/2019, 03/05/2019, 03/04/2019, Additional history exists AAA screen Completed 07/28/2020, 04/06, 02/29/2012 Hepatitis A vaccine Aged Out No longe [...] 4.00 ng/mL [facility] Comment: Performed at [facility] [address] [place] [address] [facility] [address] [place] [address] CLIA No. [id number] Accreditation No. [id number] Mail Rider: Clint Tamez M.D. 10/13/2018 9:50 AM EDT 10/13/2018 11:25 AM EDT Narrative -[facility] - 10/14/2018 2:14 AM EDT Ordering Provider: WILLI SANCHEZ us Willi Sanchez MD CHEMISTRY ORDERABLES Final Result -[facility] * (ABNORMAL) Hemoglobin A1c (08/04/2016 7:05 PM EST) Hemoglobin A1C 6.1(H) 4.8 - 5.9 % 08/04/2016 11:12 PM EST [facility] Estimated Avg Glucose 128 mg/dL 08/04/2016 11:12 PM EST [facility] Comment: The ADA and AACC recommend providing the estimated average glucose result to permit better patient understanding of their HBA1c result. Performed at [address] [place] [address] ([phone] BLOOD SPECIMEN / Unknown 08/04/2016 7:05 PM EST 08/04/2016 10:33 PM EST us Elton Dawson MD CHEMISTRY ORDERABLES Final Resu lt [facility] [address] [phone] [facility] * US ABDOMINAL LIMITED (04/15/2014 8:53 AM EST) Anatomical Region Laterality Modality Abdomen Other 04/15/2014 8:53 AM EST Narrative 04/15/2014 9:13 AM EST FINAL Procedure: [facility] Apr 15 2014 8:53AM [id number] US ABD LIMITED Reason for Exam: ^polycythemia, [...] kidneys reveals no hydronephrosis Report Transcribed by: [facility] on Apr 15 2014 9:13A Read by: CHAPIN BAUTISTA M.D. [id number] on Apr 15 2014 9:13A Electronically Signed by: DR. CHAPIN BAUTISTA M.D. on: Apr 15 2014 9:13A Procedure Note Chapin Bautista MD - 04/15/2014 FINAL Procedure: [facility] Apr 15 2014 8:53AM [id number] US ABD LIMITED Reason for Exam: ^polycythemia, [...] kidneys reveals no hydronephrosis Report Transcribed by: [facility] on Apr 15 2014 9:13A Read by: CHAPIN BAUTISTA M.D. [id number] on Apr 15 2014 9:13A Electronically Signed by: DR. CHAPIN BAUTISTA M.D. on: Apr 15 2014 9:13A Gilda Conner MD [facility] ORDERABLES Final Res ult from Last 3 Months or Most Recently Relevant to Health Maintenance Insurance [employer] MEDICARE SUPP Advance Directives Documents on File Type Date Recorded Patient Operations Coordinator Expl anation ACP-Power of Auto Appraiser 08/31/2013 9:46 AM ACP-Advance Directive 08/31/2013 9:46 [...] 2:36 PM 05/13/2014 9:20 PM Care Teams Renovator Machine Operator Relationship Specialty Start Date End Date Jordan Wong MD PCP - General 07/25/19
--- OUTSIDE RECORDS SUMMARY | 2024-12-26 07:57 | XMS_ITS | Encounter Summary ---
Author Organization [facility] Address [address] [place] [address] Care Team Providers Care Scuba Dive Training Instructor Name Role Phone Jordan Wong MD Primary Care Provider Mitch Mello MD Unavailable [phone] Jr. Julio Henson DO Unavailable Alberto Ibrahim DPM Unavailable Jordan Wong MD Unavailable [phone] Julio Huddleston MD Unavailable Hudson Stevenson MD Unavailable [phone] Kitty Edmond OD Unavailable Korin Kraft RN Unavailable Encounter Details Date Type Department Care Team (Late st Contact Info) Description 04/20/2023 Orders Only [facility] [address] [place] [address] Jordan Wong MD 112 [facility] [address] [place] [address] Social History Tobacco Use Types Packs/Day Years [...] on filedocumented in this encounter Care Teams Scuba Dive Training Instructor Relationship Specialty Start Date End Date Jordan Wong MD 112 [facility] 100 [place] [address] PCP - General Family Medicine 10/25/22 Jordan Wong MD 112 [facility] 100 [place] [address] PCP - ACO Reach 08/05/23 Mitch Mello MD [address] [place] [address] Referring Physician Cardiology 05/17/23 07/24/24 Jr. Julio Henson DO 112 [facility] 150 [place] [address] Referring Physician Orthopaedic Surgery 05/17/23 Alberto Ibrahim DPM [address] [place] [address] Referring Physician Podiatry 05/17/23 Julio Huddleston MD [address] [place] [address] Referring Physician Family Medicine 07/25/24 Hudson Stevenson MD [address] [place] [address] Referring Physician Urology 07/25/24 [place] [address] [place] [address] Referring Physician Optometry 07/25/24 Korin Kraft, ARUN [address] [address] Registered Nurse Family Medicine 12/24/24 documented as of this encounter
--- OUTSIDE RECORDS SUMMARY | 2024-12-26 07:57 | XMS_ITS | Encounter Summary ---
Author Organization [facility] Address [address] [place] [address] Care Team Providers Care Supervisor Brine Name Role Phone Jordan Wong MD Primary Care Provider Mitch Mello MD Unavailable Jr. Julio Henson DO Unavailable Alberto Ibrahim DPM Unavailable Jordan Wong MD Unavailable [phone] Julio Huddleston MD Unavailable [phone] [place] MD Unavailable Kitty Edmond OD Unavailable Korin Kraft RN Unavailable [phone] Encounter Details Date Type Department Care Team (Late st Contact Info) Description 03/07/2023 Abstract [facility] [address] [place] [address] Alberto Ibrahim DPM [address] [place], [place] [id number] Social History Tobacco Use Types Packs/Day Years [...] filedocumented in this encounter Care Teams Supervisor Brine Relationship Specialty Start Date End Date Jordan Wong MD 112 [facility] 100 [place] [address] PCP - General Family Medicine 10/25/22 Jordan Wong MD [address] [address] PCP - ACO Reach 08/05/23 Mitch Mello MD 1100 [place] [address] Referring Physician Cardiology 05/17/23 07/24/24 Jr. Julio Henson DO 112 [facility] 150 [place] [address] Referring Physician Orthopaedic Surgery 05/17/23 Alberto Ibrahim DPM [address] [place] [address] Referring Physician Podiatry 05/17/23 Julio Huddleston MD [address] [place] [phone] Referring Physician Family Medicine 07/25/24 [place] Stevenson MD [address] [place] [phone] Referring Physician Urology 07/25/24 Kitty Edmond OD [address] [place] [address] Referring Physician Optometry 07/25/24 Korin Kraft, ARUN [address] [place] [address] Registered Nurse Family Medicine 12/24/24 documented as of this encounter
--- OUTSIDE RECORDS SUMMARY | 2024-12-26 07:57 | XMS_ITS ---
Author Organization [facility] Address [address] [facility], [address] [place] [address] Care Team Providers Care Project Administrator Name Role Phone Jordan Wong MD Primary [...] 10/01/2015 S/P JORY - LCX & RCA ([id number]-Ot. kabour) 05/13 S/P cardiac cath-05/13/14-Dr. landrum 05/13/2014 [...]
--- OUTSIDE RECORDS SUMMARY | 2024-12-26 07:57 | XMS_ITS | Encounter Summary ---
Author Organization [facility] Address [address] [place] [address] Care Team Providers Care Pc Network Technician Name Role Phone Jordan Wong MD Primary Care Provider Mitch Mello MD Unavailable [phone] Jr. Julio Henson DO Unavailable [phone] Alberto Ibrahim DPM Unavailable Jordan Wong MD Unavailable [phone] Julio Huddleston MD Unavailable [place] MD Unavailable [phone] Kitty Edmond OD Unavailable Korin Kraft RN Unavailable [phone] Encounter Details Date Type Department Care Team (Late st Contact Info) Description 05/03/2023 Orders Only [facility] [address] [place] [address] [place] MD [address] [place], [place] [id number] Social History Tobacco Use Types Packs/Day Years [...] on filedocumented in this encounter Care Teams Pc Network Technician Relationship Specialty Start Date End Date Jordan Wong MD [address] [address] (Fax) PCP - General Family Medicine 10/25/22 Jordan Wong MD [address] [address] PCP - ACO Reach 08/05/23 Mitch Mello MD 1100 [place] [address] Referring Physician Cardiology 05/17/23 07/24/24 Jr. Julio Henson DO 112 [facility] 150 [place], [place] [phone] Referring Physician Orthopaedic Surgery 05/17/23 Alberto Ibrahim DPM [address] [place], [place] [phone] Referring Physician Podiatry 05/17/23 Julio Huddleston MD [address] [place] [address] Referring Physician Family Medicine 07/25/24 [place] Stevenson MD 290 [place], [place] [phone] Referring Physician Urology 07/25/24 Kitty Edmond OD [address] [facility] [place] [address] Referring Physician Optometry 07/25/24 Korin Kraft, ARUN [address] [place] [address] Registered Nurse Family Medicine 12/24/24 documented as of this encounter
--- OUTSIDE RECORDS SUMMARY | 2024-12-26 07:57 | XMS_ITS | Encounter Summary ---
Author Organization [facility] Address [address] [place] [address] Care Team Providers Care Stock Repairer Name Role Phone Jordan Wong MD Primary Care Provider [phone] Mitch Mello MD Unavailable [phone] Jr. Julio Henson DO Unavailable Alberto Ibrahim DPM Unavailable [phone] Jordan Wong MD Unavailable Julio Huddleston MD Unavailable [place] MD Unavailable Kitty Edmond OD Unavailable Korin Kraft RN Unavailable [phone] Encounter Details Date Type Department Care Team (Late st Contact Info) Description 04/14/2023 Orders Only [facility] [address] [place] [address] Julio Huddleston MD [address] [place] [address] Social History Tobacco Use Types [...] on filedocumented in this encounter Care Teams Stock Repairer Relationship Specialty Start Date End Date Jordan Wong MD [address] [address] PCP - General Family Medicine 10/25/22 Jordan Wong MD [address] [address] PCP - ACO Reach 08/05/23 Mitch Mello MD 1100 [place] [address] Referring Physician Cardiology 05/17/23 07/24/24 Jr. Julio Henson DO [address] [address] Referring Physician Orthopaedic Surgery 05/17/23 Alberto Ibrahim DPM [address] [place] [address] Referring Physician Podiatry 05/17/23 Julio Huddleston MD [address] [place] [phone] Referring Physician Family Medicine 07/25/24 [place] Stevenson MD [address] [place] [phone] Referring Physician Urology 07/25/24 Kitty Edmond OD [address] [place] [address] Referring Physician Optometry 07/25/24 Korin Kraft, RN [address] [place] [address] Registered Nurse Family Medicine 12/24/24 documented as of this encounter
--- OUTSIDE RECORDS SUMMARY | 2024-12-26 07:57 | XMS_ITS | Encounter Summary ---
Author Organization [facility] Address [address] [place] [address] Care Team Providers Care Tetryl Nitrator Operator Name Role Phone Jordan Wong MD Primary Care Provider Mitch Mello MD Unavailable Jr. Julio Henson DO Unavailable [phone] Alberto Ibrahim DPM Unavailable Jordan Wong MD Unavailable [phone] Julio Huddleston MD Unavailable [place] Stevenson MD Unavailable Kitty Edmond OD Unavailable Korin Kraft RN Unavailable Encounter Details Date Type Department Care Team (Late st Contact Info) Description 01/19/2023 Abstract [facility] [address] [place] [address] Alberto Ibrahim DPM [address] [place], [place] [id number] Social History Tobacco Use Types Packs/Day Years [...] on filedocumented in this encounter Care Teams Tetryl Nitrator Operator Relationship Specialty Start Date End Date Jordan Wong MD 112 [facility] 100 [place] [address] PCP - General Family Medicine 10/25/22 Jordan Wong MD [address] [address] PCP - ACO Reach 08/05/23 Mitch Mello MD [address] [place] [address] Referring Physician Cardiology 05/17/23 07/24/24 Jr. Julio Henson DO [address] [place] [address] Referring Physician Orthopaedic Surgery 05/17/23 Alberto Ibrahim DPM [address] [place] [address] Referring Physician Podiatry 05/17/23 Julio Huddleston MD [address] [place] [address] Referring Physician Family Medicine 07/25/24 [place] Stevenson MD [address] [place] [phone] Referring Physician Urology 07/25/24 Kitty Edmond OD [address] [place] [address] Referring Physician Optometry 07/25/24 Korin Kraft, RN [address] [place] [address] Registered Nurse Family Medicine 12/24/24 documented as of this encounter
--- OUTSIDE RECORDS SUMMARY | 2024-12-26 07:57 | XMS_ITS | Encounter Summary ---
Author Organization [facility] Address [address] [place] [address] Care Team Providers Care Elevator Inspector Name Role Phone Jordan Wong MD Primary Care Provider Mitch Mello MD Unavailable [phone] Jr. Julio Henson DO Unavailable Alberto Ibrahim DPM Unavailable Jordan Wong MD Unavailable [phone] Julio Huddleston MD Unavailable [place] Stevenson MD Unavailable Kitty Edmond OD Unavailable Korin Kraft RN Unavailable Encounter Details Date Type Department Care Team (Late st Contact Info) Description 05/25/2023 Orders Only [facility] [address] [facility] [place] [address] Jordan Wong MD 112 [facility] [address] [place] [address] Social History Tobacco Use Types Packs/Day Years [...] documented as of this encounter Care Teams Elevator Inspector Relationship Specialty Start Date End Date Jordan Wong MD 112 [facility] 100 [place] [address] PCP - General Family Medicine 10/25/22 Jordan Wong MD [address] [address] PCP - ACO Reach 08/05/23 Mitch Mello MD [address] [place] [address] Referring Physician Cardiology 05/17/23 07/24/24 Jr. Julio Henson DO [address] [address] Referring Physician Orthopaedic Surgery 05/17/23 Alberto Ibrahim DPM [facility] [place], [place] [phone] Referring Physician Podiatry 05/17/23 Julio Huddleston MD [address] [place] [phone] Referring Physician Family Medicine 07/25/24 [place] Stevenson MD [address] [place] [phone] Referring Physician Urology 07/25/24 Kitty Edmond OD [address] [facility] [place] [address] Referring Physician Optometry 07/25/24 Korin Kraft, RN [address] [place] [address] Registered Nurse Family Medicine 12/24/24 documented as of this encounter
--- OUTSIDE RECORDS SUMMARY | 2024-12-26 07:58 | XMS_ITS | CCD ---
Author Organization [facility] Care Team Providers Care Contact Lens Molder Name Role Phone PHYSICIAN, DEFAULT Unavailable Unavailable PHYSICIAN, DEFAULT Unavailable Unavailable Diego Bartlett Primary Care Provider Jordan Duncan Primary Care Provider Jordan Duncan MD Primary Care Provider JORDAN DUNCAN Primary Care Physician Jordan Duncan MD Primary Care Provider [phone] JORDAN DUNCAN Primary Care Physician Unavail able [...] OBANDO Admitting Unavailable DARRIUS BOLTON Consulting Unavailable BEENA PETER Marion Attending Unavailable HIGHLSULAIMAN, PETER D Admitting Unavailable HEMEYER ., DR ALATORRE Primary Care Unavailable ENEDINA HARGROVE Attending Unavailable BEENA PETER Marion Admitting Unavailable HEMEYER ., DR ALATORRE Primary Care Unavailable Jordan Duncan MD Primary Care Provider [phone] Funmilayo NOLASCO, Mitch Armendariz Unavailable [phone] Jr. Anuja Henson DO Unavailable Alexandria DALAL, Brody Xiao Unavailable Jordan Duncan MD Unavailable [phone] Jordan Duncan MD Primary Care Provider Jordan Duncan MD Unavailable Jordan Duncan MD Primary Care Provider Jordan Duncan MD Unavailable [phone] Fernanda Solomon Attending Unavailable SAAVEDRA, Topher [...] Primary Care Unavailable WILLI SANCHEZ Referring Unavailable HEMEENOC, JORDAN Brown Primary Care Unavailable WILLI SANCHEZ Referring Unavailable ANUJA HUDDLESTON Attending Unavailable PAUL CLEMONS Attending Unavailable Anuja Huddleston MD Unavailable Keri NOLASCO Topher Smita Unavailable Kitty Edmond OD Unavailable Anuja Huddleston MD Unavailable ALEXANDRIA, BRODY A Attending Unavailable HEMEYER, JORDAN Brown Attending Unavailable HEMEYER, JORDAN Brown Attending Unavailable RUSHER, BRODY A Attending Unavailable RUSHER, BRODY A Attending Unavailable RUSHER, BRODY A Attending Unavailable HEMEYERJORDAN Attending Unavailable RUSHER, BRODY A Attending Unavailable RUSHER, BRODY A Attending Unavailable RUSHER, BRODY A Attending Unavailable HEMEYER, JORDAN Brown Attending Unavailable HEMEYER, JORDAN Brown Attending Unavailable Allergies Allergy Classification Reported Allergen(s) Allergy Type Date of Onset Reaction(s) Facility (4 sources) Clindamycin/Linc omycin Propensity to adverse reactions to drug [place] (3 sources) Clindamycin [facility] (4 sources) glipiZIDE; Translations: [GLIPIZIDE] Drug Allergy 2 Diarrhea [facility] (20 sources) metFORMIN; Translations: [METFORMIN] Drug Allergy 2 Diarrhea, Unknown [facility]: (20 sources) Pravastatin; Translations: [PRAVASTATIN] Drug Allergy 2 Unknown [facility]: (4 sources) rosuvastatin; Translations: [ROSUVASTATIN] Drug Allergy 2 [facility]: (2 sources) Clindamycin; Translations: [CLINDAMYCIN] Drug Allergy 7 [facility] (1 source) glipiZIDE Drug Allergy 7 [facility] (1 source) metFORMIN Drug Allergy 7 [facility] (20 sources) Clindamycin Drug Allergy 2 Diarrhea [facility] (20 sources) ezetimibe; Translations: [EZETIMIBE] Drug Allergy 2 Unknown [facility] (20 sources) glipiZIDE Drug Allergy 2 Diarrhea, Unknown [facility] (20 sources) Rosuvastatin calcium Allergy to substance 1 Unknown [facility] Medications Current Medications Medication Drug Class(es) Dates Sig (Normalized) Sig (Original) amLODIPine 5 mg oral tablet (9 sources) Dihydropyridine Calcium Channel Justice Start: 06-08-2024 [...] EC tablet Indications: Arteriosclerosis of coronary artery Take 1 tablet (81 [...] % suspension every 8 (eight) hours Active brinzolamide-latia monidine 1-0.2 % SUSP Apply to eye 3 times daily Active cholecalciferol 0.05 mg oral tablet (20 sources) Vitamin D cholecalciferol (Vitamin D-3) 50 MCG (1999 UT) tablet Take by mouth Active Cholecalciferol (VITAMIN D3) 50 MCG (2000 UT) TABS Take by mouth daily Active Cholecalciferol (VITAMIN D3) 3000 UNITS TABS Take by mouth daily 0 Active Cholecalciferol (VITAMIN D3) 3000 UNITS TABS Take by mouth. 0 Active cyclobenzaprine hydrochloride 10 mg oral tablet (20 sources) Muscle Relaxant Start: 04-19-2023 End: 03-03-2025 take 1 tablet by mouth three times daily as needed for muscle spasms cyclobenzaprine (Flexeril) 10 MG tablet Indications: Lumbar paraspinal muscle spasm Take 1 tablet (10 mg) by mouth 3 (three) times a day as needed for muscle spasms 270 tablet 12/03/2024 03/03/2025 Active diclofenac sodium 75 mg delayed release [...] sources) Histamine-2 Receptor Antagonist Start: 12-13-2023 End: 01-16-2025 take 1 tablet by mouth in the morning famotidine (Pepcid) 20 MG tablet Indications: Dyspepsia Take 1 tablet (20 mg) by mouth in the morning and 1 tablet (20 mg) before bedtime. 180 tablet 10/18/2024 01/16/2025 Active gabapentin 100 mg oral capsule (5 sources) Anti-epileptic Agent Start: 10-18-2024 gabapentin (Neurontin) 100 MG capsule Indications: Type 2 diabetes mellitus with diabetic polyneuropathy, without long-term current use of insulin ([facility]) Titrate from 1 to 2 capsules three times daily as needed for pain 540 capsule 1 10/18/2024 Active Start: 09-18-2024 End: 10-18-2024 gabapentin (Neurontin) 100 M G capsule Indications: Type 2 diabetes mellitus with diabetic polyneuropathy, without long-term current use of insulin ([facility]/HCC) Titrate from 1 to 4 capsules three times daily as needed for pain 100 capsule 09/18/2024 10/18/2024 Discontinued (Reorder) glipiZIDE 10 mg oral tablet (20 sources) Sulfonylurea Start: 01-01-2019 take 10 mg by mouth once daily glipiZIDE 10 mg, Oral, Daily, Refills(s) 0 Start Date: 01/01/19 Status: Ordered 24 hr isosorbide mononitrate 30 mg extended release oral tablet (9 sources) Nitrate Vasodilator Start: 06-08-2024 End: 06-08-2025 take 1 tablet by mouth once daily, then take 1 tablet by mouth every twenty-four hours isosorbide mononitrate ER (Imdur) 30 MG 24 hr tablet Take 30 mg by mouth Daily 06/08/2024 06/08/2025 Active latanoprost 0.05 mg/ml ophthalmic solution (20 sources) Prostaglandin Analog Start: 02-25-[address] Opth 0.005% Richelle Refill(s) 0 Start Date: 02/25/20 Status: Ordered Start: 07-27-2018 latanoprost (X alatan) 0.005 % ophthalmic solution 07/27/2018 Active Start: 07-27-2018 take 1 drop(s) [...] Angiotensin 2 Receptor Justice Start: 09-29-2021 End: 03-17-2025 take 1 tablet by mouth once daily losartan (Cozaar) 50 MG tablet Indications: Essential hypertension Take 1 tablet (50 mg) by mouth Daily 90 tablet 1 09/18/2024 03/17/2025 Active Start: 02-25-2020 losartan 100 m g Tab Refills(s) 0 Start Date: 02/25/20 Status: Ordered take 2 tablets by mo uth once daily losartan (COZAAR) 25 MG tablet Take 50 mg by mouth daily 0 Active metoprolol tartrate 100 mg oral tablet (20 sources) beta-Adrenergic Justice Start: 10-12-2023 End: 03-17-2025 metoprolol tartrate (Lopressor) 100 MG tablet Indications: Essential hypertension Take 1 tablet (100 mg) by mouth See administration instructions 1 tablet in AM. 0.5 tablet in PM 135 tablet 09/18/2024 03/17/2025 Active Start: 06-20-2023 METOPROLOL TAR TRATE 100 MG TAB METOPROLOL TARTRATE 100 MG TAB Start Date: 06/20/23 Status: Ordered Start: 04-20-2023 End: 10-17-2023 take 1.5 tablets by mouth every twenty-four hours in the morning metoprolol succinate XL (Toprol XL) 100 MG 24 hr tablet Indications: Atherosclerosis of [place] coronary artery of [place] heart without angina pectoris (CMS/HCC) Take 1.5 [...] (20 sources) take 1 capsule by mouth once daily Multiple Vitamin (multivitamin) capsule Take 1 capsule by mouth Daily Active take 1 capsule by mouth in [...] (20 sources) Cholinergic Muscarinic Antagonist Start: 09-08-2017 oxybutynin XL (Ditropan-XL) 5 MG 24 hr tablet 09/08/2017 Active Start: 09-08-2017 take 1 tablet by piper th once daily oxybutynin XL (Ditropan-XL) 5 MG 24 hr tablet oxybutynin chloride ER 5 mg tablet,extended release 24 hr TAKE 1 TABLET BY MOUTH EVERY DAY 09/08/2017 Active pioglitazone 30 mg oral tablet (20 sources) Peroxisome Proliferator Receptor alpha Agonist, Peroxisome Proliferator Receptor gamma Agonist, Thiazolidinedione Start: 04-19-2023 End: 03-17-2025 take 1 tablet by mouth in the morning pioglitazone (Actos) 30 MG tablet Indications: Type 2 diabetes mellitus with diabetic polyneuropathy, without long-term current use of insulin (HCC) Take 1 tablet (30 mg) by mouth in the morning. 90 tablet 1 09/18/2024 03/17/2025 Active Start: 02-25-2020 pioglitazone 4 5 mg [...] BID, # 180 cap(s), Refills(s) 3, Pharmacy: [facility]/pharmacy #[id number], 198, cm, 12/05/23 10:49:00 EDT, Height/Length Dosing, 150.3, kg, 12/05/23 10:49:00 EDT, Weight Dosing Start Date: 01/11/24 Status: Ordered Start: 06-18-2022 take 1 capsule by [facility] once daily tamsulosin 0.4 mg Cap 0.4 mg = 1 cap(s), Oral, Daily, # 90 cap(s), Refills(s) 3, Pharmacy: [facility]/pharmacy #[id number], 198, cm, 11/05/22 10:14:00 EDT, Height/Length Dosing, 150, kg, 11/05/22 10:14:00 EDT, Weight Dosing Start Date: 05/26/23 Status: Ordered take 1 capsule by [facility] every twenty-four hours in the morning tamsulosin (Flomax) 0.4 MG 24 hr capsule Take 0.4 mg by mouth in the morning and 0.4 mg in the evening. Take after meals. Active 1 ml testosterone cypionate 200 mg/ml injection (20 sources) Androgen Start: 07-12-2017 End: 09-18-2024 testosterone cypionate (DEPOTESTOTERONE CYPIONATE) 200 MG/ML injection Inject 1 mL into the muscle. Once a month 4 07/12/2017 Active testosterone cypionate 200 mg/mL IM Richelle (20 sources) Start: 03-27-2024 testosterone c ypionate 200 mg/mL IM Richelle 400 mg, IntraMuscular, q4wk, # 10 mL, Refills(s) 1, Pharmacy: [facility]/pharmacy #[id number], 198, cm, 12/05/23 10:49:00 EDT, Height/Length Dosing, 150.3, kg, 12/05/23 10:49:00 EDT, Weight Dosing Start Date: 03/27/24 Status: Ordered Start: 01-03-2024 testosterone c ypionate 200 mg/mL IM Richelle 400 mg, IntraMuscular, q4wk, # 10 mL, Refills(s) 1, Pharmacy: [facility]/pharmacy #[id number], 198, cm, 12/05/23 10:49:00 EDT, Height/Length Dosing, 150.3, kg, 12/05/23 10:49:00 EDT, Weight Dosing Start Date: 01/03/24 Status: Ordered Start: 06-20-2023 testosterone c ypionate 200 mg/mL IM Richelle 450 mg, IntraMuscular, q4wk, # 10 mL, Refills(s) 1, Pharmacy: [facility]/pharmacy #[id number], 198, cm, 06/20/23 11:05:00 EST, Height/Length Dosing, 149, kg, 06/20/23 11:05:00 EST, Weight Dosing Start Date: 06/20/23 Status: Ordered Start: 05-09-2023 testosterone c ypionate 200 mg/mL IM Richelle 400 mg, IntraMuscular, q4wk, # 10 mL, Refills(s) 1, Pharmacy: [facility]/pharmacy #[id number], 198, cm, 11/05/22 10:14:00 EDT, Height/Length Dosing, 150, kg, 11/05/22 10:14:00 EDT, Weight Dosing Start Date: 05/09/23 Status: Ordered Start: 02-08-2023 testosterone c ypionate 200 mg/mL IM Richelle 400 mg, IntraMuscular, q4wk, # 10 mL, Refills(s) 2, Pharmacy: [facility]/pharmacy #[id number], 198, cm, 11/05/22 10:14:00 EDT, Height/Length Dosing, 150, kg, 11/05/22 10:14:00 EDT, Weight Dosing Start Date: 02/08/23 Status: Ordered Start: 08-27-2022 testosterone c ypionate 200 mg/mL IM Richelle 400 mg, IntraMuscular, q4wk, # 10 mL, Refills(s) 2, Pharmacy: [facility]/pharmacy #[id number], 198, cm, 06/18/22 9:10:00 EST, Height/Length Dosing, 164, kg, 06/18/22 9:10:00 EST, Weight Dosing Start Date: 08/27/22 Status: Ordered testosterone cypionate 200 mg/mL intramuscular solution (17 sources) Start: 02-01-2022 testosterone c ypionate 200 mg/mL intramuscular solution 400 mg = 2 mL, IntraMuscular, q4wk, 400mg once a month, # 10 mL, Refills(s) 3, Pharmacy: [facility]/pharmacy #[id number], 198, cm, 02/01/22 9:53:00 EDT, Height/Length Dosing, 166, kg, 02/01/22 9:53:00 EDT, Weight Dosing Start Date: 02/01/22 Status: Ordered Start: 11-23-2021 testosterone c ypionate 200 mg/mL intramuscular solution 350 mg, IntraMuscular, q4wk, # 10 mL, Refills(s) 1, Pharmacy: [facility]/pharmacy #[id number], 198, cm, 08/03/21 14:37:00 EST, Height/Length Dosing, 166, kg, 08/03/21 14:37:00 EST, Weight Dosing Start Date: 11/23/21 Status: Ordered Start: 08-03-2021 testosterone c ypionate 200 mg/mL intramuscular solution 350 mg, IntraMuscular, q4wk, # 10 mL, Refills(s) 1, Pharmacy: [facility]/pharmacy #[id number], 198, cm, 08/03/21 14:37:00 EST, Height/Length [...] Date Documented Da te Episodic/Chronic Abdominal pain (3 sources) Indigestion; Translations: [Epigastric pain] 06-18-2024 Episodic [...] Coronary arteriosclerosis; Translations: [Atherosclerotic heart disease of [place] coronary artery without angina pectoris] Onset: 04-08-2017 [...] 01-13-2023 01-11-2023 Chronic 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 (1 source) 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 (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) use of anticoagulants; Translations: [USP CURRNT USE ANTICOAGULANTS] Onset: 10-12-2022 Episodic 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 (1 source) 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 (current) use of aspirin; Translations: [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 ASPIRIN] Onset: 10-12-2022 Episodic 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 (1 source) senior care (current) use of oral hypoglycemic drugs; Translations: [PRODUCT MANAGER [employer] USE ORAL HYPOGLYCEMIC DX] Onset: 10-12-2022 Episodic 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 (1 source) Other half-way (current) drug therapy; Translations: [OTH USP CURRENT DRUG THERAPY] Onset: 09-20-2022 Episodic Other [...] Chronic Other diseases of bladder and urethra (10 sources) Overactive bladder; Translations: [Overactive bladder] Onset: [...] Translations: [Other specified health status] 07-23-2024 Episodic Spondylosis; intervertebral disc disorders; other back problems (2 sources) Spasm of muscle of lower back; Translations: [Muscle spasm of back] 10-18-2024 Episodic Superficial injury; contusion (6 sources) Blister [...] initial encounter] Onset: 09-11-19 21 01-11-2023 Episodic Genitourinary symptoms and ill-defined conditions (20 sources) Increased frequency of urination; Translations: [Nocturia] Onset: 11-15-19 Resolved : 10-10-19 24 01-01-2019 Episodic Infective arthritis and osteomyelitis (except that caused by tuberculosis or sexually transmitted disease) (20 sources) Acute osteomyelitis of metatarsal; Translations: [Other acute osteomyelitis, right ankle and foot] Onset: 08-06-19 Resolved : 01-14-20 23 08-05-2016 Chronic Joint disorders and dislocations; trauma-related (20 sources) Derangement of left knee; Translations: [Unspecified internal derangement of left knee] Onset: 01-24-20 Resolved : 01-14-20 23 01-13-2023 Chronic Mood disorders (20 sources) Mood disorders Onset: 05-17-20 Resolved : 07-25-19 25 05-17-2023 Other connective tissue disease (20 sources) [...] right toe] Onset: 08-05-19 17 Resolved : 01-14-2008-05-2016 Episodic Unclassified (3 sources) Patient encounter status; Translations: [Screening for colorectal cancer] Onset: 02-13-20 14 Resolved : 04-03-20 18 04-03-2018 Unclassified (1 source) CONTACT W/AND (SUSP) EXPOS COVID-19; Translations: [CONTACT W/AND (SUSP) EXPOS COVID-19] Onset: 01-19-20 22 Results Test Name Value Interpretation Reference Range Facility CBC W/AUTO DIFFon 10-11-2024 ABS IMMATURE GRAN 0.03 K/uL Normal 0.00-0.06 [facility] Comment on above: Result Comment: UNLE SS OTHERWISE INDICATED, ALL TESTING PERFORMED AT: [facility] [employer] [address] [place] [id number] ROD PULLER AND COILER: JONI NI M.D. CLIA NUMBER [id number] CAP ACCREDITATION AUID [id number] ABS NEUTROPHILS 3.59 K/uL Normal 1.9-8.0 [facility] Basophils (Bld) [#/Vol] 0.04 10*3/uL Normal 0.0-0.2 [facility] Basophils/100 WBC (Bld) 0.7 % Normal 0-2 [facility] Eosinophils (Bld) [#/Vol] 0.37 10*3/uL Normal 0.0-0.80 [facility] Eosinophils/100 WBC (Bld) 6.2 % High 0-5 [facility] Erythrocyte distribution width (RBC) [Ratio] 13.0 % Normal 11.2-14.8 [facility] Hematocrit (Bld) [Volume fraction] 42.1 % Normal 39-52 [facility] Hemoglobin (Bld) [Mass/Vol] 14.0 g/dL Normal 13.0-18.0 [facility] IMMATURE GRAN 0.5 % Normal 0-2 [facility] Lymphocytes (Bld) [#/Vol] 1.21 10*3/uL Normal 0.9-5.2 [facility] Lymphocytes/100 WBC (Bld) 20.1 % Normal 20-45 [facility] MCH (RBC) [Entitic mass] 33.7 pg High 26.0-32.0 [facility] MCHC (RBC) [Mass/Vol] 33.3 g/dL Normal 32.0-35.0 [facility] MCV (RBC) [Entitic vol] 101 fL High 75-100 [facility] Monocytes (Bld) [#/Vol] 0.77 10*3/uL Normal 0.1-1.0 [facility] Monocytes/100 WBC (Bld) 12.8 % Normal 0-13 [facility] Neutrophils/100 WBC (Bld) 59.7 % Normal 45-75 [facility] PLATELET 149 THOUS/CMM Normal 140-440 [facility] RBC 4.16 MILL/CMM Low 4.40-6.10 [facility] WBC 6.0 THDS/CMM Normal 3.6-11.0 [facility] Laboratory - Chemistry and C hemistry - challengeon 09-18-2024 Albumin DL <= 20 mg/L (U) [Mass/Vol] 150 mg/dL [facility] are Albumin/Creatinine DL <= 1.0 mg/L (U) [Ratio] 300 [facility] Creatinine (U) [Mass/Vol] 50 mg/dL [facility] No Panel Informationon 09-18 Interpretation and review of laboratory results Abnormal [facility] COMPREHENSIVE METABOLIC PANE Efren 09-13-2024 Albumin [Mass/Vol] 4.3 g/dL Normal 3.6-5.1 [facility] Comment on above: Performed By: #### 4 , 1390 #### [facility] [place] [address] Derrick Worker: Toan Lara MD #### [id number] #### [facility] [address] Derrick Worker: Parvin Gray Albumin/Globulin [Mass ratio] 1.5 {ratio} Normal 1.0-2.5 [facility] Comment on above: Performed By: #### 4 96, 1230 #### [facility] [address] [address] Derrick Worker: Toan Lara MD #### [id number] #### [facility]-[address] [address] Derrick Worker: Parvin Gray ALP [Catalytic activity/Vol] 64 U/L Normal 35-144 [facility] Comment on above: Performed By: #### 4 96, 9920 #### [facility] [address] [place] [address] Derrick Worker: Toan Lara MD #### [id number] #### [facility] [address] [place], [place] [id number] Derrick Worker: Parvin Gray ALT [Catalytic activity/Vol] 32 U/L Normal 9-46 [facility] Comment on above: Performed By: #### 4 96, 0 #### [facility] [address], [address] [place] [address] Derrick Worker: Toan Lara MD #### [id number] #### [facility] [address] [place], [place] [id number] Derrick Worker: Parvin Gray AST [Catalytic activity/Vol] 23 U/L Normal 10-35 [facility] Comment on above: Performed By: #### 4 96, 0 #### [facility] [address], [address] [place] [address] Derrick Worker: Toan Lara MD #### [id number] #### [facility] [address] [place], [place] [id number] Derrick Worker: Parvin Gray Bilirubin [Mass/Vol] 0.7 mg/dL Normal 0.2-1.2 [facility] Comment on above: Performed By: #### 4 96, 0 #### [facility] [address], [address] [place] [address] Derrick Worker: Toan Lara MD #### [id number] #### [facility] [address] [place], [place] [id number] Derrick Worker: Parvin Gray BUN/CREATININE RATIO SEE NOTE: Normal 6-22 [facility] Comment on above: Result Comment: Not Reported: BUN and Creatinine are within reference range. Performed By: #### 4 96, 7600 #### [facility] [address], [address] [place] [address] Derrick Worker: Toan Lara MD #### [id number] #### [facility] [address] [place] [address] Derrick Worker: Parvin Ordoñez Flati Calcium [Mass/Vol] 9.3 mg/dL Normal 8.6-10.3 [facility] Comment on above: Performed By: #### 4 , 0 #### [facility] [address], [address] [place] [address] Derrick Worker: Toan Lara MD #### [id number] #### [facility] [address] [place] [address] Derrick Worker: Parvin Ordoñez Flati Chloride [Moles/Vol] 105 mmol/L Normal 98-110 [facility] Comment on above: Performed By: #### 4 , 7599 #### [facility] [address], [address] [place] [address] Derrick Worker: Toan Lara MD #### [id number] #### [facility] [address] [place] [address] Derrick Worker: Parvin Ordoñez Flati CO2 [Moles/Vol] 26 mmol/L Normal 20-32 [facility] Comment on above: Performed By: #### 4 , 7599 #### [facility] [place] [address] Derrick Worker: Toan Lara MD #### [id number] #### [facility] [address] Derrick Worker: Parvin Ordoñez Flati Creatinine [Mass/Vol] 0.84 mg/dL Normal 0.70-1.28 [facility] Comment on above: Performed By: #### 4 , 7599 #### [facility] [address], [address] [place] [address] Derrick Worker: Toan Lara MD #### [id number] #### [facility] [address] [place] [address] Derrick Worker: Parvin Felixi GFR/1.73 sq M.predicted among non-blacks MDRD (S/P/Bld) [Vol rate/Area] 93 mL/min/{1.73_m2} Normal > OR = 60 [facility] Comment on above: Performed By: #### 4 , 7599 #### [facility] [address], [address] [place] [address] Derrick Worker: Toan Lara MD #### [id number] #### [facility] [address] Derrick Worker: Parvin Gray Globulin (S) [Mass/Vol] 2.8 g/dL Normal 1.9-3.7 [facility] Comment on above: Performed By: #### 4 , 7599 #### [facility] [address], [address] [place] [address] Derrick Worker: Toan Lara MD #### [id number] #### [facility] [address] Derrick Worker: Parvin Gray Glucose [Mass/Vol] 129 mg/dL High 65-99 [facility] Comment on above: Result Comment: Fasting reference interval For someone without known diabetes, a glucose value >125 mg/dL indicates that they may have diabetes and this should be confirmed with a follow-up test. Performed By: #### 4 , 7599 #### [facility] [address], [address] [place] [address] Derrick Worker: Toan Lara MD #### [id number] #### [facility] [address] Derrick Worker: Parvin Gray Potassium [Moles/Vol] 4.7 mmol/L Normal 3.5-5.3 [facility] Comment on above: Performed By: #### 4 , 7599 #### [facility] [place] [address] Derrick Worker: Toan Lara MD #### [id number] #### [facility] [address] Derrick Worker: Parvin Gray Protein [Mass/Vol] 7.1 g/dL Normal 6.1-8.1 [facility] Comment on above: Performed By: #### 4 96, 7600 #### [facility] [address], [address] [place] [address] Derrick Worker: Toan Lara MD #### [id number] #### [facility] [address] [place], [place] [id number] Derrick Worker: Parvin Gray Sodium [Moles/Vol] 140 mmol/L Normal 135-146 [facility] Comment on above: Performed By: #### 4 96, 7600 #### [facility] [address], [address] [place] [address] Derrick Worker: Toan Lara MD #### [id number] #### [facility]-[address] Derrick Worker: Parvin Gray Urea nitrogen [Mass/Vol] 23 mg/dL Normal 7-25 [facility] Comment on above: Performed By: #### 4 96, 7600 #### [facility] [address], [address] [place] [address] Derrick Worker: Toan Lara MD #### [id number] #### [facility] Derrick Worker: Parvin Gray HEMOGLOBIN A1con 09-13-2024 HEMOGLOBIN A1c [...] diabetes for children. Performed By: #### 4 96, 7600 #### [facility] [address], [address] [place] [address] Derrick Worker: Toan Lara MD #### [id number] #### [facility] [address] [place] [id number] Derrick Worker: Parvin Gray LIPID PANEL, [facility] 04- 0 Cholesterol [Mass/Vol] 242 mg/dL High <200 [facility] Comment on above: Order Comment: FASTI NG:YES FASTING: YES Performed By: #### 4 96, 7600 #### [facility] [address], [address] [place] [address] Derrick Worker: Toan Lara MD #### [id number] #### [facility] [address] [place] [phone] Derrick Worker: Parvin Gray Cholesterol in HDL [Mass/Vol] 40 mg/dL Normal > OR = 40 [facility] Comment on above: Order Comment: FASTI NG:YES FASTING: YES Performed By: #### 4 96, 7600 #### [facility] [address], [address] [place] [address] Derrick Worker: Toan Lara MD #### [id number] #### [facility] [address] [place] [phone] Derrick Worker: Parvin Gray Cholesterol in LDL [Mass/Vol] 142 mg/dL High [...] LDL-C. Deion TORIBIO et al. MAHENDRA. 2013;310(19): 7939-2853 (http://education.[employer]/faq/YHI859) Performed By: #### 4 96, 7600 #### [facility] [address], [address] [place] [address] Derrick Worker: Toan Lara MD #### [id number] #### [facility] [address] [place] [address] Derrick Worker: Parvin Gray Cholesterol.total/C holesterol in HDL [Mass ratio] 6.1 {ratio} High <5.0 [facility] Comment on above: Order Comment: FASTI NG:YES FASTING: YES Performed By: #### 4 , 0 #### [facility] [address], [address] [place] [address] Derrick Worker: Toan Lara MD #### [id number] #### [facility] [address] [place] [address] Derrick Worker: Parvin Gray NON HDL CHOLESTEROL 202 mg/dL (calc) High <130 [facility] Comment on above: Order Comment: FASTI NG:YES FASTING: YES Result Comment: For patients with diabetes plus 1 major ASCVD risk factor, treating to a non-HDL-C goal of <100 mg/dL (LDL-C of <70 mg/dL) is considered a therapeutic option. Performed By: #### 4 7599 #### [facility] [address], [address] [place] [address] Derrick Worker: Toan Lara MD #### [id number] #### [place] [address] Derrick Worker: Parvin Gray Triglyceride [Mass/Vol] 389 mg/dL High <150 [facility] Comment on above: Order Comment: FASTI NG:YES FASTING: YES Result Comment: If a non-fasting specimen was collected, consider repeat triglyceride testing on a fasting specimen if clinically indicated. Aaliyah et al. J. of Clin. Lipidol. 2015;9:129-169. Performed By: #### 4 , 0 #### [facility] [address], [address] [place] [address] Derrick Worker: Toan Lara MD #### [id number] #### [facility] [address] [place] [phone] Derrick Worker: Parvin Gray Office Visiton 07-16-2024 Follow-up visit [id number] Juan Miguel Jennings 1950 M Date Provider Department Center 07/16/2024 ANUJA ARMSTRONG [facility] Family History Problem Relation Age of Onset Heart disease Mother Heart disease Father Family Status - Relation Status Age at Mother Father Level of Service:19901 NC OFFICE/OUTPATIENT ESTABLISHED MOD MDM 30 MIN Normal [facility] 36on 07-09-2024 36 What is his blood pressure running? We can have him try holding amlodipine to see if this will help. We can see how he's feeling at his follow-up appt next week. Normal [facility] CBC W/AUTO DIFFon 06-21-2024 ABS IMMATURE GRAN 0.04 K/uL Normal 0.00-0.06 [facility] Comment on above: Result Comment: UNLE SS OTHERWISE INDICATED, ALL TESTING PERFORMED AT: [employer] [address] [place] [address] ROD PULLER AND COILER: JONI NI M.D. CLIA NUMBER [id number] CAP ACCREDITATION AUID [id number] ABS NEUTROPHILS 5.59 K/uL Normal 1.9-8.0 Pathology [...] to start isosorbide and amlodipine. Sent to [facility] per his request. He will see Dr. Huddleston in clinic on 07/16/2024 in [place]. Do you need me to send something to [facility] or did you already? Normal [facility] Documentationon 06-08-2024 Documentation [id number] Juan Miguel Jennings 1950 M Date Provider Department Center 06/08/2024 91070-RAZAIRON OROZCO HVCANTICOAG [facility] Family History Problem Relation Age of Onset Heart disease Mother Heart disease Father Family Status - Relation Status Age at Mother Father Reason for Visit and Comments: PharmD Cardiology Consult [Other] Normal [facility] Orders Onlyon 06-02-2024 Orders Only [id number] Juan Miguel Jennings 1950 M Date Provider Department Center 06/02/2024 PAUL JAIMES CARD [place] [facility] Family History Problem Relation Age of Onset Heart disease Mother Heart disease Father Family Status - Relation Status Age at Mother Father Normal [facility] Reminderson 06-01-2024 Reminders Reminders From: Bertha Winter [...] ) Other: PROVIDER RELATED REMINDER:_ ( ) Wool Grader ( ) Call Pharmacy ( ) Call Lab ( ) Other: Special Instructions:_ Comments:_ Results in chart for review Normal [facility] ALL CBC WITH AUTO DIFFon BASOPHILS ABSOLUTE AUTO 0 [facility] Basophils/100 WBC (Bld) 0.4 % 0.2 - 2.0 % [facility] Eosinophils/100 WBC (Bld) 4.2 % 0.9 - 7.0 % [facility] Erythrocyte distribution width (RBC) [Ratio] 13.8 % 11.0 - 15.0 % [facility] Hematocrit (Bld) [Volume fraction] 53 % 42.0 - 54.0 % [facility] Hemoglobin (Bld) [Mass/Vol] 17.9 g/dL 14.0 - 18.0 g/dL [facility] IMMATURE GRANULOCYTES ABS AUTO 0.01 [facility] Immature granulocytes/100 WBC (Bld) 0.1 % 0.0 - 0.5 % [facility] Interpretation and review of laboratory results Abnormal [facility] LYMPHOCYTES ABSOLUTE AUTO 1.1 Low [facility] Lymphocytes/100 WBC (Bld) 15 % Low 20.5 - 60.0 % [facility] MCH (RBC) [Entitic mass] 32.9 pg 25.9 - 34.0 pg [facility] MCHC (RBC) [Mass/Vol] 33.8 g/dL 29.9 - 35.2 g/dL [facility] MCV (RBC) [Entitic vol] 97.4 fL High 80.0 - 94.0 fL [facility] MONOCYTES ABSOLUTE AUTO 0.9 High [facility] Monocytes/100 WBC (Bld) 12.2 % High 1.7 - 12.0 % [facility] NEUTROPHILS ABSOLUTE AUTO 4.8 [facility] Neutrophils/100 WBC (Bld) 68.1 % 43.0 - 75.0 % [facility] Platelet mean volume (Bld) [Entitic vol] 12.5 fL 9.5 - 13.5 fL [facility] TBH EO # 0.3 [facility] TBH PLT 144 Low [facility] TB[facility] RBC 5.44 [facility] WBC 7.1 [facility] Ambulatory Visit Summaryon 1 07-22-2023 [...] Rg When: Where: [facility] [address] [place] [address]- Medications What How Much When Instructions Unchanged [...] PSA History of colon cancer 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 Ea (more content not included)... Normal [facility] Urology Office/Clinic Noteon 05-21-2024 Urology Office/Clinic Note [...] Has not been able to donate blood, [facility] will not let him. Pt will talk to his oncologist in [place] to see if there is another way he can donate blood. Shares he got CBC drawn on 05/08 at [facility], no results on [facility], called lab and they did not [...] onc to facilitate blood donation/get permission for [facility]. 2. Elevated PSA (R97.20: Elevated prostate specific [...] With When Contact Information KERI NOLASCO, Topher Odroñez, URL [facility] [address], [place] [address]- Additional Instructions: f/u pending HGB/CBC and blood [...] 1 tab(s), (more content not included)... Normal [facility] Comment on above: Result Comment: Elec tronically Signed By: Topher SAAVEDRA MD\.br\Date and Time Signed: 05/21/24 12:18 EST\.br\Electronically Co-Signed By: Bertha Winter\.br\Date and Time Co-Signed: 05/21/24 12:17 EST ALL LIPID PROFILE (FASTING)o n 05-08-2024 [facility] Comment on above: 3.3 - 4.4 LOW RISK 4.4 - 7.1 AVERAGE RISK 7.1 - 11.0 MODERATE RISK >11.0 HIGH RISK Cholesterol [Mass/Vol] 189 mg/dL NINF - 200 mg/dL [facility] Cholesterol in HDL [Mass/Vol] 42 mg/dL 40 - 60 mg/dL [facility] Comment on above: > or =60 mg/dl - LOW CARDIOVASCULAR RISK <40 mg/dl - HIGH CARDIOVASCULAR RISK LDL CHOLESTEROL CALCULATED 124.2 mg/dL [facility] Comment on above: <100 mg/dl OPTIMAL 100-129 mg/dl NEAR OR ABOVE OPTIMAL 130-159 mg/dl BORDERLINE HIGH 160-189 mg/dl HIGH >190 mg/dl VERY HIGH Magnesium [Mass/Vol] 22.8 mg/dL [facility] Triglyceride [Mass/Vol] 114 mg/dL NINF - 150 mg/dL [facility] Office Visiton 05-02-2024 Follow-up visit [id number] Gabriela Jenningsnis 1950 M Date Provider Department Center 05/02/2024 PAUL JAIMES [facility] Family History Problem Relation Age of Onset Heart disease Mother Heart disease Father Family Status - Relation Status Age at Mother Father Level of Service:16091 NC OFFICE/OUTPATIENT ESTABLISHED MOD MDM 30 MIN Reason for Visit and Comments: Coronary Artery Disease [187] Hypertension [443344] Normal [facility] Ambulatory Visit Summaryon 1 06-23-2023 [...] AM EST With: Where: [facility] [address] [place] [address]- Tuesday 10:45 AM EST With: KERI NOLASCO, Topher Ordoñez Where: [facility] of [address] [place] [address]- Medications What How Much When Instructions Unchanged [...] for choosing us for your care. Normal [facility] Ambulatory Visit Summaryon 1 Ambulatory Visit Summary Ambulatory Visit Summary JUAN MIGUEL JENNINGS :1950 Visit Date:03/27/2024 Ambulatory Visit Instructions Your Diagnosis Hypogonadism male Your Care Team Attending Physician - Topher SAAVEDRA MD Primary Care Physician - DAKOTA NOLASCO, [...] AM EST With: Where: [facility] [address] [address]- Tuesday 10:45 AM EST With: Topher SAAVEDRA MD Where: [facility] [address] [address]- Medications What How Much When Instructions Unchanged [...] for choosing us for your care. Normal [facility] CBC W/AUTO DIFFon 02-22-2024 ABS IMMATURE [...] Inc Comment on above: Result Comment: Pathology [facility] [address] [place] [address] CLIA No. [id number] CAP Accreditation No. [id number] Middle School Coach: Shaunna Dee M.D. 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 Normal [facility] Comment on above: Result Comment: Elec tronically Signed By: KERI NOLASCO, Topher Ordoñez\.br\Date and Time Signed: 12/05/23 11:42 EDT\.br\Electronically Co-Signed By: Erica Marin\.br\Date and Time Co-Signed: 12/05/23 11:40 EDT [facility] 11-22-2023 Lab Reports [id number] .00TIFF Normal [facility] 11-09-2023 Lab Reports [id number] .00TIFF Normal [facility] CBC W/AUTO DIFFon 10-25-2023 ABS [...] on above: Result Comment: [facility] [address] [place] [address] CLIA No. [id number] CAP Accreditation No. [id number] Middle School Coach: Shaunna Dee M.D. Platelets (Bld) [#/Vol] 141 [...] Medical Center [facility] 07-15-2023 Lab Reports [id number] [facility] 06-28-2023 Lab Reports [id number] .00TIFF [facility] Ambulatory Visit Summaryon 0 06-20-2023 Ambulatory Visit Summary JUAN MIGUEL JENNINGS :1950 Visit Date:06/20/2023 Ambulatory Visit Instructions Your Diagnosis Hypogonadism male Elevated PSA BPH with urinary obstruction Phimosis Urinary urgency Tests Performed Urnls Dip Stick Auto w/o Microscopy POC 18877 Your Care Team Attending Physician - KERI [...] [facility] Patient Educationon 06-20-19 24 Patient [...] Follow these instructions at home: ? Take [id number] and prescription medicines only as told by [...] [facility] [address], [place] [phone] Additional Instructions: 6 mos w/ PSA and T level (pt to also get PSA now) Patient Education Hypogonadism, Male I, Erica Marin, personally scribed for Dr. Saavedra on 06/20/2023 11:26:15. . Documentation recorded by the tomasibErica garcia, accurately reflects the services(s) I performed and decisions made by me. Authenticated by Dr. Saavedra on 06/20/2023 11:28:12. 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 Normal [facility] Comment on above: Result Comment: Elec tronically Signed By: Topher SAAVEDRA MD\.br\Date and Time Signed: 06/20/23 11:28 EST\.br\Electronically Co-Signed By: Erica Marin\.br\Date and Time Co-Signed: 06/20/23 11:26 EST POINT OF CARE GLUCOSEon 09-05 Glucose [Mass/Vol] 112 mg/dL Critically high 74-106 T [facility] Comment on above: Performed By: #### P OCGLUC #### [facility] [address] [place] [address] Dr. Patria Sanders CBC AUTO DIFFon 09-15-2022 BASO # 0.0 103/ul Normal 0.0-0.1 [facility] Comment on above: Performed By: #### C BC #### [facility] [address] [place] [address] [address] Patria Sanders Basophils/100 WBC (Bld) 0.5 % Normal 0.2-2.0 [facility] Comment on above: Performed By: #### C BC #### [facility] [address] [place] [address] Dr. Patria Sanders EO # 0.3 103/ul Normal 0.0-0.7 [facility] Comment on above: Performed By: #### C BC #### [facility] [address] [place] [address] Dr. Patria Sanders Eosinophils/100 WBC (Bld) 3.2 % Normal 0.9-7.0 [facility] Comment on above: Performed By: #### C BC #### [facility] [address] [place] [address] Dr. Patria Sanders Erythrocyte distribution width (RBC) [Ratio] 14.5 % Normal 11.0-15.0 [facility] Comment on above: Performed By: #### C BC #### [facility] [address] [place] [address] Dr. Patria Sanders Hematocrit (Bld) [Volume fraction] 49.0 % Normal 42.0-54.0 [facility] Comment on above: Performed By: #### C BC #### [facility] [address] [place] [address] Dr. Patria Sanders Hemoglobin (Bld) [Mass/Vol] 16.7 g/dL Normal 14.0-18.0 [facility] Comment on above: Performed By: #### C BC #### [facility] [address] [place] [address] Dr. Patria Sanders IG # 0.03 10e3/ul Normal 0.00-0.03 [facility] Comment on above: Performed By: #### C BC #### [facility] [address] [place] [address] Dr. Patria Sanders IG % 0.4 % Normal 0.0-0.5 [facility] Comment on above: Performed By: #### C BC #### [facility] [address] [place] [address] Dr. Patria Sanders LYMPH # 1.1 103/ul Critically low 1.2-3.8 [facility] Comment on above: Performed By: #### C BC #### [facility] [address] [place] [address] Dr. Patria Sanders Lymphocytes/100 WBC (Bld) 14.5 % Critically low 20.5-60.0 [facility] Comment on above: Performed By: #### C BC #### [facility] [address] [place] [address] Dr. Patria Sanders MANUAL DIFF REQ NO Normal [facility] Comment on above: Performed By: #### C BC #### [facility] [address] [place] [address] Dr. Patria Sanders MCH (RBC) [Entitic mass] 32.6 pg Normal 25.9-34.0 [facility] Comment on above: Performed By: #### C BC #### [facility] [address] [place] [address] Dr. Patria Sanders MCHC (RBC) [Mass/Vol] 34.1 g/dL Normal 29.9-35.2 [facility] Comment on above: Performed By: #### C BC #### [facility] [address] [place] [address] Dr. Patria Sanders MCV (RBC) [Entitic vol] 95.5 fL Critically high 80.0-94.0 [facility] Comment on above: Performed By: #### C BC #### [facility] [address] [place] [address] Dr. Patria Sanders MONO # 0.8 103/ul Normal 0.3-0.8 [facility] Comment on above: Performed By: #### C BC #### [facility] [address] [place] [address] Dr. Patria Sanders Monocytes/100 WBC (Bld) 9.6 % Normal 1.7-12.0 [facility] Comment on above: Performed By: #### C BC #### [facility] [address] [place] [address] Dr. Patria Sanders NEUT # 5.6 103/ul Normal 1.4-6.5 [facility] Comment on above: Performed By: #### C BC #### [facility] [address] [place] [address] Dr. Patria Sanders Neutrophils/100 WBC (Bld) 71.8 % Normal 43.0-75.0 [facility] Comment on above: Performed By: #### C BC #### [facility] [address] [place] [address] Dr. Patria Sanders Platelet mean volume (Bld) [Entitic vol] 11.6 fL Normal 9.5-13.5 [facility] Comment on above: Performed By: #### C BC #### [facility] [address] [place] [address] Dr. Patria Sanders PLT 154 103/ul Normal 150-450 [facility] Comment on above: Performed By: #### C BC #### [facility] [address] [place] [address] Dr. Patria Sanders RBC 5.13 106/ul Normal 4.70-6.10 [facility] Comment on above: Performed By: #### C BC #### [facility] [address] [place] [address] Dr. Patria Sanders WBC 7.8 103/ul Normal 4.0-11.0 [facility] Comment on above: Performed By: #### C BC #### [facility] [address] [place] [address] Dr. Patria Sanders PROF CHEM 8 (BAS METB)on Anion gap [Moles/Vol] 11.4 mmol/L Normal [facility] Comment on above: Performed By: #### B MP #### [facility] [address] [place] [address] Dr. Patria Sanders Calcium [Mass/Vol] 9.1 mg/dL Normal 8.5-10.1 [facility] Comment on above: Performed By: #### B MP #### [facility] [address] [place] [address] Dr. Patria Sanders Chloride [Moles/Vol] 104 mmol/L Normal 98-107 [facility] Comment on above: Performed By: #### B MP #### [facility] [address] [place] [address] Dr. Patria Sanders CO2 [Moles/Vol] 28.7 mmol/L Normal 21.0-32.0 [facility] Comment on above: Performed By: #### B MP #### [facility] [address] [place] [address] Dr. Patria Sanders Creatinine [Mass/Vol] 0.80 mg/dL Normal 0.70-1.30 [facility] Comment on above: Performed By: #### B MP #### [facility] [address] [place] [address] [address] Patria Sanders EGFR-AF TUVALUAN >60 Normal >=[address] [facility] Comment on above: Performed By: #### B MP #### [facility] [address] [address] [address] Patria Sanders EGFR-NON AF TUVALUAN >60 Normal >=60 [facility] Comment on above: Performed By: #### B MP #### [facility] [address] [address] [address] Patria Sanders Glucose [Mass/Vol] 101 mg/dL Normal 74-106 [facility] Comment on above: Performed By: #### B MP #### [facility] [address] [place] [address] Dr. Patria Sanders Potassium [Moles/Vol] 4.1 mmol/L Normal 3.5-5.1 [facility] Comment on above: Performed By: #### B MP #### [facility] [address] [place] [address] Dr. Patria Sanders Sodium [Moles/Vol] 140 mmol/L Normal 136-145 [facility] Comment on above: Performed By: #### B MP #### [facility] [address] [place] [address] Dr. Patria Sanders Urea nitrogen [Mass/Vol] 11.0 mg/dL Normal 7.0-18.0 [facility] Comment on above: Performed By: #### B MP #### [facility] [address] [place] [address] Dr. Patria Sanders Urea nitrogen/Creatinine [Mass ratio] 13.8 mg/mg Normal [facility] Comment on above: Performed By: #### B MP #### [facility] [address] [place] [address] Dr. Patria Sanders PROTIMEon 09-15-2022 INR Coag (PPP) [Relative time] 1.02 {INR} Normal [facility] Comment on above: Performed By: #### P TT, PT #### [facility] [address] [place] [address] Dr. Patria Sanders INR GUIDELINES SEE BELOW Normal [facility] Comment on above: Result Comment: SANTO RED INR: 2.0 - 3.0 CONDITIONS NOT LISTED BELOW 2.5 - 3.5 FOR PROSTHETIC HEART VALVE REPLACEMENT 2.5 - 3.5 RECURRENT THROMBOSIS Performed By: #### P TT, PT #### [facility] [address] [place] [address] Dr. Patria Sanders PT Coag (PPP) [Time] 10.8 s Normal 9.0-11.6 [facility] Comment on above: Performed By: #### P TT, PT #### [facility] [address] [place] [address] Dr. Patria Sanders PTTon 09-15-2022 aPTT Coag (Bld) [Time] 32.0 s Normal 22.3-36.2 [facility] Comment on above: Performed By: #### P TT, PT #### [facility] [address] [place] [address] Dr. Patria Sanders Covid-19 PCR ([facility])on 01-04 SARS-CoV-2 (COVID-19) RNA NANCY+probe Ql (Unsp spec) Not detected Normal NOT DETECTED [facility] Comment on above: Result Comment: This test is not yet approved or cleared by the [place] FDA. When there are no FDA-approved or cleared tests available, and other criteria are met, FDA can make tests available under an emergency access mechanism called an Emergency Use Authorization (EUA). The EUA for this test is supported by the [place] of Health and Human Service's (HHS's) declaration [...] consistent with SARS-CoV-2. Performed By: #### [facility] #### [facility] [address] [place], [place] [address] Dr. Patria Sanders Hemoglobin A1Con 09-24-2021 EAG 128.37 Normal [facility] Comment on above: Performed By: #### A 1C #### [facility] [address] [place], [place] [id number] HbA1c (Bld) [Mass fraction] 6.1 % High 4.0-6.0 [facility] Comment on above: Performed By: #### A 1C #### [facility] [address] [place], [place] [id number] Testosteroneon 05-11-2021 TESTOS 314.70 ng/dL Normal [phone] [facility] Comment on above: Performed By: #### T EST #### [facility] [address] [place], [place] [id number] XR femur BIon 05-06-2021 XR femur BI [facility] [place] [address] XRay Report Signed Patient: Juan Miguel Jennings MR#: [id number] 25 : 1950 Acct:[id number] Age/Sex: 71 / M ADM Date: 05/06/21 Loc: ICXD Room: Type: [facility] Attending Dr: Maxwell Staley PA-C Ordering Provider: Maxwell Staley PA-C Date of Service: 05/06/21 XR/XR chest 2V*: Z01.818 ([id number]) XR/XR femur BI: Z01.818 ([id number]) XR/XR tibia/fibula BI: . Copies to: Maxwell [...] Rosanne Echeverria M.D.05/06/2021 3:12 PM Dictation Location: [place] [address] Transcribed By: [facility] 05/06/21 1512 Dictated By: Rosanne Echeverria MD 05/06/21 1506 Signed By: 05/06/21 1512 [facility] Progress Noteon 10-12-2017 HIM IP Note OR Data Integration Analyst [facility] Vital Signs Date Time Vital Sign Value Performing Clinician Facility 09-18-2024 09:24-0400 Body height 198.1 cm Jordan Duncan MD Work Phone: [facility] 09-18-2024 09:24-0400 Body mass index (BMI) [Ratio] 40.1 kg/m2 Jordan Duncan MD Work Phone: [facility] 09-18-2024 09:24-0400 Body weight 157.4 kg Jordan Duncan MD Work Phone: [facility] 09-18-2024 09:24-0400 Diastolic blood pressure 70 mm[Hg] Jordan Duncan MD Work Phone: [facility] 09-18-2024 09:24-0400 Heart rate 63 /min Jordan Duncan MD Work Phone: [facility] 09-18-2024 09:24-0400 SaO2% (BldA) [Mass fraction] 98 % Jordan Duncan MD Work Phone: [facility] 09-18-2024 09:24-0400 Systolic blood pressure 124 mm[Hg] Jordan Duncan MD Work Phone: [facility] 07-25-2024 10:01-0500 Body height 198.1 cm Jordan Duncan MD Work Phone: [facility] 07-25-2024 10:01-0500 Body mass index (BMI) [Ratio] 39.64 kg/m2 Jordan Duncan MD Work Phone: [facility] 07-25-2024 10:01-0500 Body weight 155.58 kg Jordan Duncan MD Work Phone: [facility] 07-25-2024 10:01-0500 Diastolic blood pressure 74 mm[Hg] Jordan Duncan MD Work Phone: [facility] 07-25-2024 10:01-0500 Heart rate 58 /min Jordan Duncan MD Work Phone: [facility] 07-25-2024 10:01-0500 SaO2% (BldA) [Mass fraction] 98 % Jordan Duncan MD Work Phone: [facility] 07-25-2024 10:01-0500 Systolic blood pressure 120 mm[Hg] Jordan Duncan MD Work Phone: [facility] 07-05-2024 13:45-0500 Diastolic blood pressure 72 mm[Hg] [facility] Schedule [facility] 07-05-2024 13:45-0500 Heart rate 77 /min [facility] Schedule [facility] 07-05-2024 13:45-0500 Systolic blood pressure 135 mm[Hg] [facility] 07-05-2024 13:16-0500 Body temperature 97.5 [degF] Mth[facility] Schedule [facility] 07-05-2024 13:16-0500 Respiratory rate 18 /min M[facility] Schedule [facility] 05-21-2024 10:44-0500 Blood Pressure Location Topher SAAVEDRA [facility] 05-21-2024 10:44-0500 Body temperature 98.6 [degF] Topher SAAVEDRA [facility] 05-21-2024 10:44-0500 Diastolic blood pressure 79 mm[Hg] Topher SAAVEDRA [facility] 05-21-2024 10:44-0500 Heart rate 58 /min Topher SAAVEDRA [facility] 05-21-2024 10:44-0500 Respiratory rate 16 /min Topher SAAVEDRA [facility] 05-21-2024 10:44-0500 Systolic blood pressure 133 mm[Hg] Topher SAAVEDRA [facility] 05-15-2024 10:21-0500 Body height 198.1 cm Brody GUTIÉRREZM Work Phone: [facility] 05-15-2024 10:21-0500 Body mass index (BMI) [Ratio] 40.45 kg/m2 Brody GUTIÉRREZM Work Phone: [facility] 05-15-2024 10:21-0500 Body weight 158.76 kg Brody GUTIÉRREZM Work Phone: [facility] 04-23-2024 10:41-0500 Body height 198.1 cm Brody Rusher DPM Work Phone: [facility] 04-23-2024 10:41-0500 Body mass index (BMI) [Ratio] 40.45 kg/m2 Brody Ibrahim DPM Work Phone: [facility] 04-23-2024 10:41-0500 Body weight 158.76 kg Brody Ibrahim DPM Work Phone: [facility] 03-29-2024 12:49-0400 Body height 198.1 cm Brody Ibrahim DPM Work Phone: [facility] 03-29-2024 12:49-0400 Body mass index (BMI) [Ratio] 40.45 kg/m2 Brody Ibrahim DPM Work Phone: [facility] 03-29-2024 12:49-0400 Body weight 158.76 kg Brody Ibrahim DPM Work Phone: [facility] 03-27-2024 14:00-0400 Body height 198.1 cm Jordan Duncan MD Work Phone: [facility] 03-27-2024 14:00-0400 Body mass index (BMI) [Ratio] 40.45 kg/m2 Jordan Duncan MD Work Phone: [facility] 03-27-2024 14:00-0400 Body weight 158.76 kg Jordan Duncan MD Work Phone: [facility] 03-27-2024 14:00-0400 Diastolic blood pressure 76 mm[Hg] Jordan Duncan MD Work Phone: [facility] 03-27-2024 14:00-0400 Heart rate 71 /min Jordan Duncan MD Work Phone: [facility] 03-27-2024 14:00-0400 SaO2% (BldA) [Mass fraction] 97 % Jordan Duncan MD Work Phone: [facility] 03-27-2024 14:00-0400 Systolic blood pressure 128 mm[Hg] Jordan Duncan MD Work Phone: [facility] 03-13-2024 09:41-0400 Body height 198.1 cm Brody Ibrahim DPM Work Phone: [facility] 03-13-2024 09:41-0400 Body mass index (BMI) [Ratio] 40.45 kg/m2 Brody Ibrahim DPM Work Phone: [facility] 03-13-2024 09:41-0400 Body weight 158.76 kg Brody Ibrahim DPM Work Phone: [facility] 12-05-2023 10:38-0400 Blood Pressure Location Topherpeter SAAVEDRA [facility] 12-05-2023 10:38-0400 Body temperature 98.6 [degF] Topher SAAVEDRA [facility] 12-05-2023 10:38-0400 Diastolic blood pressure 86 mm[Hg] Topherpeter SAAVEDRA [facility] 12-05-2023 10:38-0400 Heart rate 69 /min Topher SAAVEDRA [facility] 12-05-2023 10:38-0400 Respiratory rate 16 /min Topher SAAVEDRA [facility] 12-05-2023 10:38-0400 Systolic blood pressure 136 mm[Hg] Topher SAAVEDRA [facility] 07-19-2023 10:37-0500 Body height 198.1 cm Brody Ibrahim DPM Work Phone: [facility] 07-19-2023 10:37-0500 Body mass index (BMI) [Ratio] 39.87 kg/m2 Brody Ibrahim DPM Work Phone: [facility] 02-13-2024 10:37-0500 Body weight 156.49 kg Brody Ibrahim DPArin Work Phone: [facility] 06-20-2023 10:33-0500 Blood Pressure Location Topher SAAVEDRA [facility] 06-20-2023 10:33-0500 Diastolic blood pressure 86 mm[Hg] Topher SAAVEDRA [facility] 06-20-2023 10:33-0500 Heart rate 70 /min Topher SAAVEDRA [facility] 06-20-2023 10:33-0500 Respiratory rate 16 /min Topher SAAVEDRA [facility] 06-20-2023 10:33-0500 Systolic blood pressure 139 mm[Hg] Topher SAAVEDRA [facility] 11-05-2022 10:12-0400 Blood Pressure Location Topher SAAVEDRA [facility] 11-05-2022 10:12-0400 Diastolic blood pressure 78 mm[Hg] Topher SAAVEDRA [facility] 11-05-2022 10:12-0400 Heart rate 68 /min Topher SAAVEDRA [facility] 11-05-2022 10:12-0400 Respiratory rate 16 /min Topher SAAVEDRA [facility] 11-05-2022 10:12-0400 Systolic blood pressure 130 mm[Hg] Topher SAAVEDRA [facility] 11-03-2022 14:34-0400 Body temperature 97.5 [degF] Mthz Schedule [facility] 11-03-2022 14:34-0400 Diastolic blood pressure 77 mm[Hg] Mthz Schedule [facility] 11-03-2022 14:34-0400 Heart rate 72 /min M[facility] Schedule [facility] 11-03-2022 14:34-0400 Respiratory rate 18 /min [facility] Schedule [facility] 11-03-2022 14:34-0400 Systolic blood pressure 140 mm[Hg] Mthz Schedule [facility] 06-18-2022 08:55-0500 Blood Pressure Location Topher SAAVEDRA [facility] 06-18-2022 08:55-0500 Diastolic blood pressure 82 mm[Hg] Topher SAAVEDRA [facility] 06-18-2022 08:55-0500 Heart rate 80 /min Topher SAAVEDRA [facility] 06-18-2022 08:55-0500 Respiratory rate 16 /min Topher SAAVEDRA [facility] 06-18-2022 08:55-0500 Systolic blood pressure 132 mm[Hg] Topher SAAVEDRA [facility] 05-17-2022 09:43-0500 Blood Pressure Location Topher SAAVEDRA [facility] 05-17-2022 09:43-0500 Diastolic blood pressure 92 mm[Hg] Topher SAAVEDRA [facility] 05-17-2022 09:43-0500 Heart rate 63 /min Topher SAAVEDRA [facility] 05-17-2022 09:43-0500 Systolic blood pressure 143 mm[Hg] Topher SAAVEDRA [facility] 02-01-2022 09:48-0400 Blood Pressure Location Topher SAAVEDRA [facility] 02-01-2022 09:48-0400 Diastolic blood pressure 66 mm[Hg] Topher SAAVEDRA [facility] 02-01-2022 09:48-0400 Heart rate 84 /min Topher SAAVEDRA [facility] 02-01-2022 09:48-0400 Respiratory rate 16 /min Topher SAAVEDRA [facility] 02-01-2022 09:48-0400 Systolic blood pressure 98 mm[Hg] Topher SAAVEDRA [facility] 01-28-2022 13:48-0400 Diastolic blood pressure 76 mm[Hg] [facility] Schedule [facility] [employer] 01-28-2022 13:48-0400 Heart rate 56 /min [facility] 01-28-2022 13:48-0400 Respiratory rate 18 /min [facility] Schedule [facility] 01-28-2022 13:48-0400 Systolic blood pressure 135 mm[Hg] [facility] Schedule [facility] 01-28-2022 13:25-0400 Body temperature 97.39 [degF] [facility] Schedule [facility] [employer] 10-22-2020 12:25-0400 Body temperature 97.81 [degF] Mthz Schedule [facility] Work Phone: 10-22-2020 12:25-0400 Heart rate 67 /min [facility] Schedule [facility] Work Phone: 07-27-2019 08:03-0500 Body Temperature 96.3 [degF] [facility] 07-27-2019 08:03-0500 BP Diastolic 80 mm[Hg] [facility] [place] [facility] [place] 07-27-2019 08:03-0500 BP Systolic 129 mm[Hg] [facility] [place] [facility] [place] 07-27-2019 08:03-0500 Pulse (Heart Rate) 63 /min [facility]th[facility] Schedule [facility] [place] 07-27-2019 08:03-0500 Respiratory Rate 20 /min [facility] [place] 03-13-2019 08:02-0400 Body Temperature 96.69 [degF] [facility] Schedule [facility] [place] 03-13-2019 08:02-0400 BP Diastolic 83 mm[Hg] Mth[facility] Schedule [facility] [place] 03-13-2019 08:02-0400 BP Systolic 162 mm[Hg] Mthz Schedule [facility] [place] 03-13-2019 08:02-0400 Pulse (Heart Rate) 74 /min [facility] Schedule [facility] [place] 03-13-2019 08:02-0400 Respiratory Rate 20 /min [facility] [place] 01-12-2019 08:03-0400 Body Temperature 96.91 [degF] [facility] [place] 01-12-2019 08:03-0400 BP Diastolic 87 mm[Hg] Mthz Schedule [facility] [place] 01-12-2019 08:03-0400 BP Systolic 152 mm[Hg] Mthz Schedule [facility] [place] 01-12-2019 08:03-0400 Pulse (Heart Rate) 63 /min [facility] Schedule [facility] [place] 01-12-2019 08:03-0400 Respiratory Rate 20 /min [facility] Schedule [facility] [place] Encounters Encounter Date Encounter Type Care Provider Facility Start: 12-03-2024 End: 12-03-2024 Telephone encounter Jordan Duncan MD Work Phone: [facility] Start: 10-18-2024 End: 10-18-2024 Telephone encounter Jordan Duncan MD Work Phone: [facility] Start: 09-18-2024 End: 09-18-2024 Bamboo flowsheet Jordan Duncan MD Work Phone: [facility] Start: 09-18-2024 End: 09-18-2024 Bamboo flowsheet Jordan Duncan MD Work Phone: [facility] Start: 09-18-2024 End: 09-18-2024 Office outpatient visit 25 minutes Jordan Duncan MD Work Phone: [facility] Comment on above: Essential hypertensi on (CMS/HCC) (Primary Dx); Microalbuminuria; Type 2 diabetes mellitus with diabetic microalbuminuria, without long-term current use of insulin (CMS/HCC); Type 2 diabetes mellitus with diabetic polyneuropathy, without long-term current use of insulin (CMS/HCC); Mixed hyperlipidemia (CMS/HCC); Adverse reaction to statin medication Start: 09-18-2024 End: 09-18-2024 ambulatory JORDAN DUNCAN Not Available Start: 09-13-2024 End: 09-13-2024 Refill Jordan Duncan [...] microalbuminuria, without long-term current use of insulin ([facility]); Type 2 diabetes mellitus with foot ulcer (CODE) ([facility]); Non-pressure chronic ulcer of other part of unspecified foot with unspecified severity ([facility]); Partial nontraumatic amputation of right foot ([facility] Partial nontraumatic amputation of foot, left ([facility]); Atherosclerosis of [place] coronary artery of [place] heart without angina pectoris ([facility]); History of myocardial infarction ([facility]); Mixed hyperlipidemia ([facility]); Adverse reaction to statin medication; Primary open angle glaucoma of both eyes, unspecified glaucoma stage ([facility]) Start: 07-25-2024 End: 07-25-2024 ambulatory JORDAN DUNCAN Not Available Start: 07-16-2024 End: 07-16-2024 ambulatory [facility] Start: 07-05-2024 End: 07-05-2024 ambulatory WILLI BOLIVARBRIAN [facility] Start: 07-05-2024 End: 07-05-2024 [facility] Comment on above: Polycythemia (Primar y Dx) Start: 06-18-2024 End: 06-18-2024 Telephone encounter Jordan Duncan MD Work Phone: [facility] Start: 05-22-2024 End: 05-22-2024 Clinisync Result Encounter Generic External Data Provider [facility] Unsolicited Start: 05-22-2024 End: 05-22-2024 Clinisync Result Encounter Generic External Data Provider [facility] External Department Unsolicited Start: 05-21-2024 End: 05-21-2024 ambulatory Topher SAAVEDRA Facility:[facility] Start: 05-21-2024 End: 05-21-2024 Patient encounter procedure Topher SAAVEDRA [facility] Start: 05-15-2024 End: 05-15-2024 ambulatory BRODY IBRAHIM Not Available Start: 05-15-2024 End: 05-15-2024 Postop follow up visit related to original px Brody Ibrahim DPM Work Phone: [facility] Comment on above: Diabetic polyneuropa [...] Department Unsolicited Start: 05-08-2024 ambulatory Topher SAAVEDRA [facility] ty:[facility] Start: 05-02-2024 End: 05-02-2024 ambulatory [facility] Start: 04-23-2024 End: 04-23-2024 Bamboo flowsheet Brody Ibrahim DPM Work Phone: [facility] Start: 04-23-2024 End: 04-23-2024 Bamboo flowsheet Brody Ibrahim DPM Work Phone: [facility] Start: 04-23-2024 End: 04-23-2024 ambulatory Topher SAAVEDRA Facility:[facility] Start: 04-23-2024 End: 04-23-2024 Patient encounter procedure Topher SAAVEDRA [facility] Comment on above: Diabetic polyneuropa thy associated with type 2 diabetes mellitus (CMS/HCC) (Primary Dx); Nontraumatic amputation of foot, left (CMS/HCC); Nontraumatic amputation of foot, right (CMS/HCC) Start: 04-09-2024 End: 04-09-2024 Telephone encounter Brody Ibrahim DPM Work Phone: [facility] Comment on above: Advice Only (orthoti cs) Start: 03-29-2024 End: 03-29-2024 Bamboo flowsheet Brody Ibrahim DPM Work Phone: [facility] Start: 03-29-2024 End: 03-29-2024 Bamboo flowsheet Brody Ibrahim DPM Work Phone: [facility] Start: 03-29-2024 End: 03-29-2024 Postop follow up visit related to original px Brody Ibrahim DPM Work Phone: [facility] Comment on above: Diabetic polyneuropa [...] Available Start: 03-27-2024 End: 03-27-2024 ambulatory Topher Smita KERI Facility:[facility] Start: 03-27-2024 End: 03-27-2024 Patient encounter procedure Topher R KERI [facility] Start: 03-13-2024 End: 03-13-2024 Bamboo flowsheet Brody Ibrahim DPM Work Phone: [facility] Start: 03-13-2024 End: 03-13-2024 Bamboo flowsheet Brody Ibrahim DPM Work Phone: [facility] Start: 03-13-2024 End: 03-13-2024 Patient encounter procedure Brody Ibrahim DPM Work Phone: [facility] Comment on above: Acquired keratoderma (Primary Dx); Diabetic polyneuropathy associated with type 2 diabetes mellitus (CMS/HCC); Nontraumatic amputation of foot, left (CMS/HCC); Nontraumatic amputation of foot, right (CMS/HCC) Start: 03-13-2024 End: 03-13-2024 ambulatory BRODY IBRAHIM Not Available Start: 03-01-2024 End: 03-01-2024 ambulatory JORDAN DUNCAN [facility] Start: 02-27-2024 End: 02-27-2024 ambulatory Topher Smita KERI Facility:[facility] Start: 02-27-2024 End: 02-27-2024 Patient encounter procedure Topher R KERI [facility] Start: 01-31-2024 End: 01-31-2024 ambulatory Fernanda X Orzech Facility:[facility] Start: 01-31-2024 End: 01-31-2024 Patient encounter procedure Fernanda X Orzech [facility] Start: 01-10-2024 End: 01-10-2024 ambulatory BRODY IBRAHIM Not Available Start: 01-03-2024 End: 01-03-2024 ambulatory Topher SAAVEDRA Facility:[facility] Start: 12-06-2023 End: 12-06-2023 ambulatory BRODY IBRAHIM Not Available Start: 12-05-2023 End: 12-05-2023 ambulatory Topher SAAVEDRA Facility:[facility] Start: 12-05-2023 End: 12-05-2023 Patient encounter procedure [facility] Start: 11-09-2023 End: 11-09-2023 ambulatory JORDAN DUNCAN [facility] Start: 11-07-2023 End: 11-07-2023 ambulatory Topher SAAVEDRA Facility:[facility] Start: 11-07-2023 End: 11-07-2023 Patient encounter procedure [facility]AAVED[facility] Start: 10-27-2023 End: 10-27-2023 ambulatory JORDAN DUNCAN Not Available Start: 10-12-2023 End: 10-12-2023 ambulatory JORDAN DUNCAN Not Available Start: 10-07-2023 End: 10-07-2023 ambulatory Topher SAAVEDRA Facility:[facility] Start: 10-07-2023 End: 10-07-2023 Patient encounter [facility] Start: 09-27-2023 End: 09-27-2023 ambulatory BRODY IBRAHIM Not Available Start: 09-09-2023 End: 09-09-2023 ambulatory Topher SAAVEDRA Facility:[facility] Start: 09-09-2023 End: 09-09-2023 Patient encounter procedure Tohper SAAVEDRA [facility] Start: 08-15-2023 End: 08-15-2023 ambulatory Topher SAAVEDRA Facility:[facility] Start: 08-15-2023 End: 08-15-2023 Patient encounter procedure Topher SAAVEDRA [facility] Start: 07-19-2023 Bamboo flowsheet Brody Tyler er DPM Work Phone: [facility] Start: 07-19-2023 [employer] flowsheet Brody Tyler er DPM Work Phone: [facility] Start: 07-19-2023 End: 07-19-2023 Patient encounter procedure Brody Ibrahim DPM Work Phone: [facility] Comment on above: Dermatophytosis of n ail (Primary Dx); Dystrophic nail; Diabetic polyneuropathy associated with type 2 diabetes mellitus (CMS/HCC); Nontraumatic amputation of foot, right (CMS/HCC); Nontraumatic amputation of foot, left (CMS/HCC); Acquired keratoderma Start: 07-18-2023 End: 07-18-2023 ambulatory Topher SAAVEDRA Facility:[facility] Start: 07-18-2023 End: 07-18-2023 Patient encounter procedure Topher SAAVEDRA [facility] Start: 06-20-2023 End: 06-20-2023 ambulatory Topher SAAVEDRA Facility:[facility] Start: 06-20-2023 End: 06-20-2023 Patient encounter procedure Topher SAAVEDRA [facility] Start: 05-09-2023 End: 05-09-2023 Patient encounter procedure Topher SAAVEDRA [facility] Start: 04-04-2023 End: 04-04-2023 Patient encounter procedure Topher SAAVEDRA [facility] Start: 02-08-2023 End: 02-08-2023 Patient encounter procedure JORDAN DUNCAN [facility] Start: 01-03-2023 End: 01-03-2023 Patient encounter procedure Topher SAAVEDRA [facility] Start: 12-03-2022 End: 12-03-2022 Patient encounter procedure Topher SAAVEDRA [facility] Start: 11-05-2022 End: 11-05-2022 Patient encounter procedure Topher SAAVEDRA [facility] Start: 11-03-2022 End: 11-03-2022 [facility] Schedule [facility] Comment on above: Polycythemia (Primar y Dx) Start: 10-25-2022 End: 10-26-2022 ambulatory ARNOLD RICHELLE Facility:[facility] Start: 10-05-2022 End: 10-06-[address] JORDAN DUNCAN . Facility:[facility] Start: 10-05-2022 End: 10-05-2022 Patient encounter procedure Topher SAAVEDRA [facility] Start: 09-30-2022 End: 09-30-[address] TOPHER SAAVEDRA . Facility:[facility] Start: 09-27-2022 End: 09-28-2022 ambulatory ARNOLD PEOPLES Facility:[facility] Start: 09-20-2022 End: 09-21-2022 ambulatory ENEDINA Schultz [facility] Facility:[facility] Start: 09-20-2022 Encounter for preprocedural cardiovascular examination DR TOPHER SAAVEDRA . [facility] Start: 09-20-2022 Encounter for preprocedural laboratory examination DR TOPHER SAAVEDRA . [facility] Start: 09-20-2022 Encounter for preprocedural respiratory examination DR TOPHER SAAVEDRA . [facility] Start: 09-15-2022 End: 09-16-[address] TOPHER SAAVEDRA . Facility:[facility] Start: 09-15-2022 End: 09-16-2022 Encounter for preprocedural laboratory examination DR TOPHER SAAVEDRA . Facility:[facility] Start: 09-06-2022 End: 09-06-2022 Patient encounter procedure Topher SAAVEDRA [facility] Start: 06-18-2022 End: 06-18-2022 Patient encounter procedure Topher SAAVEDRA [facility] Start: 05-20-2022 End: 05-21-2022 ambulatory ENEDINA [facility] Facility:[facility] Start: 05-17-2022 End: 05-17-2022 Patient encounter procedure Topher SAAVEDRA [facility] Start: 04-21-2022 End: 04-22-2022 ambulatory ENEDINA Schultz [facility] Facility:[facility] Start: 04-21-2022 End: 04-21-2022 Patient encounter procedure Mandy Schaefer [facility] Start: 04-09-2022 End: 04-10-2022 ambulatory [facility] Facility:H1 Start: 03-31-2022 End: 03-31-2022 Patient encounter procedure Mandy Schaefer [facility] [employer] Start: 03-22-2022 End: 03-23-2022 ambulatory [facility] Facility: Start: 03-03-2022 End: 03-03-2022 Patient encounter procedure Mandy Schaefer [facility] [place] Start: 02-01-2022 End: 02-01-2022 Patient encounter procedure Topher SAAVEDRA [facility] [employer] Start: 01-28-2022 End: 01-28-2022 Subsequent hospital visit by physician [facility] Comment on above: Polycythemia (Primar y Dx) Start: 01-18-2022 End: 01-18-[address] JORDAN DUNCAN . Facility: Start: 01-06-2022 End: 01-07-2022 ambulatory [facility] Facility: Start: 12-21-2021 End: 12-21-2021 Patient encounter procedure Topher SAAVEDRA [facility] [employer] Start: 11-23-2021 End: 11-23-2021 Patient encounter procedure Topher SAAVEDRA [facility] [place] Start: 10-26-2021 End: 10-26-2021 Patient encounter procedure Topher SAAVEDRA [facility] [place] Start: 09-28-2021 End: 09-28-2021 Patient encounter procedure Topher SAAVEDRA [facility] [place] Start: 08-31-2021 End: 08-31-2021 Patient encounter procedure Top[facility] SAAVEDRA [facility] Start: 10-22-2020 End: 10-22-2020 Subsequent hospital visit by physician [facility] Med Onc Room 9 Schedule [facility] Comment on above: Polycythemia (Primar y Dx) Start: 07-27-2019 End: 07-27-2019 Subsequent hospital visit by physician [facility] Med Onc Room 9 Schedule [facility] Comment on above: Polycythemia (Primar y Dx) Start: 03-13-2019 End: 03-13-2019 Subsequent hospital visit by physician [facility] Med Onc Room 9 Schedule [facility] Comment on above: Polycythemia (Primar y Dx) Start: 01-12-2019 End: 01-12-2019 Subsequent hospital visit by physician [facility] Med Onc Room 9 Schedule [facility] Start: 02-16-2018 End: 02-17-2018 Patient encounter DEFAULT PHYSICIAN Facility:[facility] Procedures Date Procedure Procedure Detail Performing Clinician Start: 09-18-2024 Creatinine other source Jordan Duncan MD Work Phone: Start: 05-22-2024 ALL CBC WITH AUTO DIFF Generic External Data Provider Start: 05-08-2024 ALL LIPID PROFILE (FASTING) Generic External Data Provider Start: 09-30-2022 Circumcision Topher JENSEN Start: 12-17-2020 Colonoscopy Brody pelayo DPM Work Phone: Start: 05-23-2019 foot surgery Topher ARIANA JENSEN Start: 05-13-2014 History of placement of stent for coronary artery disease S/P JORY - LCX & RCA ([id number]. kabour) [facility] Schedule BACK SURGERY Topher SAAVEDRA Placement of stent Topher [facility]SE[facility] RECTAL CANCER SURGERY Agustin SAAVEDRA RIGHT VEIN REMOVED F ROM LEG Topher SAAVEDRA Plan of Treatment Date Care Activity Detail Author Start: 12-17-2030 Screening for malignant neoplasm of colon [facility] Start: 09-29-2025 Glaucoma screening Diabetes: Retinopathy Screening [facility] Start: 09-18-2025 Urine screening for protein Diabetes: Urine Protein Screening [facility] Start: 07-25-2025 Medicare Annual Wellness (AWV) Medicare Annual Wellness (AWV) [facility] Start: 02-21-2025 GFR test (Diabetes, CKD 3-4, OR last GFR 15-59) GFR test (Diabetes, CKD 3-4, OR last GFR 15-59) [facility] Start: 12-12-2024 Hemoglobin A1c measurement Diabetes: Hemoglobin A1C [facility] Start: 10-26-2024 End: 10-26-2024 Patient encounter procedure 10/26/2024 1:00 PM EDT Appointment [facility] [address] [place], [place] [id number] phlebotomy [facility] Comment on above: phlebotomy Start: 10-17-2024 End: 10-17-2024 Patient encounter procedure 10/17/2024 1:00 PM EDT Office Visit [facility] Part of [place] [id number] Newton Stevenson MD [address] [place] [address] F/U polycythemia, anal cancer [facility] Part of [facility] Comment on above: F/U polycythemia, anal cancer Start: 10-04-2024 Urine screening for protein Diabetes: Urine Protein Screening [facility] Start: 09-18-2024 End: 09-18-2024 Patient encounter procedure [facility] FM 100 Comment on above: Essential [...] polyneuropathy, without long-term current use of insulin ([facility]/HCC) Essential hypertension (CMS/HCC) Expected: 08/25/2024, Expires: 03/27/2025 [facility] Work Phone: Comment on above: Expected: 08/25/2024, Expires: Start: 08-25-2024 End: 03-27-2025 Hemoglobin A1c/Hemoglobin.total in Blood Hemoglobin A1c Lab Routine Type 2 diabetes mellitus with diabetic polyneuropathy, without long-term current use of insulin (CMS/HCC) Expected: 08/25/2024, Expires: 03/27/2025 [facility] Comment on above: Expected: 08/25/2024, Expires: Start: 08-25-2024 End: 03-27-2025 Lipid 1996 panel - Serum or Plasma Lipid panel Lab Routine Mixed hyperlipidemia ([facility]/HCC) Expected: 08/25/2024, Expires: 03/27/2025 [facility] Comment on above: Expected: 08/25/2024, Expires: Start: 07-25-2024 End: 07-25-2024 Patient encounter procedure 07/25/2024 11:00 AM EST Office Visit [facility] [address] [facility] [address] [place] [address] Jordan Duncan MD [address] [facility] [address] [place] [address] (Fax) Encounter for Medicare annual wellness exam; Advance directive in chart; Encounter for screening for other disorder; Screening for alcohol problem; Morbid (severe) obesity due to excess calories (CMS/HCC); Body mass index (BMI) 40.0-44.9, adult ([facility]) [facility] Comment on above: Encounter for Medicare annual wellness e xam; Advance directive in chart; Encounter for screening for other disorder; Screening for alcohol problem; Morbid (severe) obesity due to excess calories (CMS/HCC); Body mass index (BMI) 40.0-44.9, adult ([facility]) Start: 06-21-2024 Hemoglobin A1c measurement Diabetes: Hemoglobin A1C [facility] Start: 05-17-2024 Medicare Annual Wellness (AWV) Medicare Annual Wellness (AWV) [facility] Start: 05-15-2024 End: 05-15-2024 Patient encounter procedure 05/15/2024 10:15 AM EST Office Visit [facility] [address] [place] [phone] Brody Ibrhaim DPM [address] [place] [address] [facility] Start: 04-23-2024 End: 04-23-2024 Patient encounter procedure 04/23/2024 11:00 AM EST Office Visit [facility] [address] [place] [phone] Brody Ibrahim DPM [address] [place] [address] [facility] Start: 04-09-2024 End: 04-09-2024 Patient encounter procedure 04/09/2024 9:30 AM EST Office Visit [facility] [address] [phone] Jordan Duncan MD [address] [place] [address] [facility] Start: 03-29-2024 End: 03-29-2024 Patient encounter procedure 03/29/2024 1:00 PM EDT Office Visit [facility] [address] [place] [phone] Brody Ibrahim, KATLIN [address] [place] [address] Arrived [facility] Comment on above: Arrived Start: 03-27-2024 End: 03-27-2024 Patient encounter procedure 03/27/2024 2:00 PM EDT Office Visit [facility] 100 [address] [place] [address] Jordan Duncan MD [address] [place] [address] (Fax) Type 2 diabetes mellitus with diabetic [...] procedure 03/13/2024 9:45 AM EDT Office Visit [facility] [address] [place] [phone] Brody Ibrahim DPM [address] [place], [place] [phone] Arrived [facility] Comment on above: Arrived Start: 02-05-2024 COVID-19 Vaccine ( season) COVID-19 Vaccine ( season) [facility] Start: 02-05-2024 Influenza vaccination Influenza Vaccine (#1) [facility] Start: 01-05-2024 Hemoglobin A1c measurement Diabetes: Hemoglobin A1C [facility] Start: 11-26-2023 Glaucoma screening Diabetes: Retinopathy Screening [facility] Start: 10-29-2023 GFR test (Diabetes, CKD 3-4, OR last GFR 15-59) GFR test (Diabetes, CKD 3-4, OR last GFR 15-59) [facility] Start: 10-26-2023 End: 10-26-2023 Patient encounter procedure 10/26/2023 Office Visit Oncology Newton Stevenson MD [address] [place] [address] [facility] Start: 10-12-2023 End: 10-12-2023 Patient encounter procedure 10/12/2023 9:30 AM EDT Office Visit [facility] [address] [place] [address] Jordan Duncan MD [address] [place] [address] [facility] Start: 09-27-2023 End: 09-27-2023 Patient encounter procedure 09/27/2023 11:00 AM EDT Procedure Visit [facility] [address] [facility] [place] [phone] Brody Ibrahim DPM [address] [place] [address] [facility] Start: 07-14-2023 Hemoglobin A1c measurement Diabetes: Hemoglobin A1C [facility] Start: 05-02-2023 Annual Wellness Visit (Medicare) Annual Wellness Visit (Medicare) [facility] Start: 10-20-2022 End: 10-20-2022 Patient encounter procedure 10/20/2022 Office Visit Oncology Newton Stevenson MD [address] [place] [address] [facility] Part of [facility] Start: 09-24-2022 Hemoglobin A1c measurement A1C test (Diabetic or Prediabetic) [facility] Start: 02-04-2022 Influenza vaccination Flu vaccine (#1) [facility] Start: 11-11-2021 Urine screening for protein [facility] Start: 10-21-2021 End: 10-21-2021 Patient encounter procedure 10/21/2021 Office Visit Oncology Newton Stevenson MD [address] [place] [address] [facility] Start: 10-16-2021 COVID-19 Vaccine (4 - Booster for Pfizer series) COVID-19 Vaccine (4 - Booster for Pfizer series) [facility] Start: 10-14-2021 Lipid panel Lipids [facility] Start: 10-24-2019 End: 10-24-2019 Office Visit Alex[facility] Start: 07-31-2019 End: 07-31-2019 Appointment 07/31/2019 Appointment Infusion Therapy [facility] Start: 04-30-2019 End: 04-30-2019 Appointment 04/30/2019 Appointment Infusion Therapy [facility] Start: 02-04-2019 Influenza vaccination Flu vaccine (#1) [place], [place] Start: 11-26-2018 Annual Wellness Visit (AWV) Annual Wellness Visit (AWV) [facility] Start: 08-17-2017 Creatinine measurement Creatinine monitoring [facility] 24/7 Card Work Phone: Start: 08-17-2017 Creatinine monitoring Creatinine monitoring [place], [place] Start: 08-17-2017 Potassium monitoring Potassium monitoring [place], [place] Start: 08-04-2017 A1C test (Diabetic or Prediabetic) A1C test (Diabetic or Prediabetic) [place] Start: 08-04-2017 Hemoglobin A1c measurement A1C test (Diabetic or Prediabetic) [facility] Start: 02-10-2017 Abdominal aortic aneurysm screening AAA screen [facility] Start: 02-10-2017 Pneumococcal 65+ years Vaccine (1 of 2 - PCV13) Pneumococcal 65+ years Vaccine (1 of 2 - PCV13) [place] Start: 01-29-2017 Shingles Vaccine (2 of 3) Shingles Vaccine (2 of 3) [facility] Start: 02-10-2015 Annual Wellness Visit (AWV) Annual Wellness Visit (AWV) [place] Start: 2012 Respiratory Syncytial Virus (RSV) or age 60 yrs+ (1 - Risk 60-74 years 1-dose series) Respiratory Syncytial Virus (RSV) or age 60 yrs+ (1 - Risk 60-74 years 1-dose series) [facility] Start: 02-10-2002 Colon cancer screen colonoscopy Colon cancer screen colonoscopy [place], [place] Start: 02-10-2002 Screening for malignant neoplasm of colon Colon cancer screen colonoscopy [facility] Work Phone: Start: 02-10-2002 Shingles Vaccine (1 of 2) Shingles Vaccine (1 of 2) [place], [place] Start: 02-10-1997 Screening for malignant neoplasm of colon [facility] Start: 02-10-1971 DTaP/Tdap/Td vaccine (1 - Tdap) DTaP/Tdap/Td vaccine (1 - Tdap) [facility] Start: 02-10-1971 Hepatitis B vaccine (1 of 3 - Risk 3-dose series) Hepatitis B vaccine (1 of 3 - Risk 3-dose series) [place] Start: 02-10-1970 Diabetic microalbuminuria test Diabetic microalbuminuria test [place] Start: 02-10-1970 Diabetic retinal exam Diabetic retinal exam [facility] Start: 02-10-1970 Glaucoma screening Diabetic retinal exam [facility] Start: 02-10-1970 Hepatitis C screening Hepatitis C screen [facility] Start: 02-10-1970 Urine screening for protein Diabetic Alb to Cr ratio (uACR) test [facility] Start: 1964 Depression Screen Depression Screen [facility] Start: 02-10-1963 DTaP/Tdap/Td vaccine (1 - Tdap) DTaP/Tdap/Td vaccine (1 - Tdap) [place] Start: 02-10-1962 [object Object] Diabetic foot exam [place] Start: 02-10-1962 Diabetic foot examination Diabetic foot exam [facility] Start: 02-10-1962 Diabetic retinal exam Diabetic retinal exam [place], [place] Start: 02-10-1962 Lipid panel [facility] Start: 02-10-1962 Lipid screen Lipid screen [place] Start: 1952 Annual Wellness Visit (AWV) Annual Wellness Visit (AWV) [facility] Start: 1952 Hepatitis C screen Hepatitis C screen [place], [place] Start: 1952 Hepatitis C screening Hepatitis C screen [facility] Work Phone: Start: 1950 Screening for malignant neoplasm of colon [facility] End: 07-05-2024 Phlebotomy therapeutic Phlebotomy therapeutic Procedures Routine One Time for 1 Occurrences starting 07/05/2024 until 07/05/2024 Kitty Masha [facility] Work Phone: Comment on above: One Time for 1 Occurrences starting 06/08 until 07/05/2024 Immunizations Immunization Date Immunization Notes Care Provider [facility] 03-28-2024 influenza, seasonal, injectable Brody Ibrahim DPM Work Phone: [facility] 03-28-2024 Seasonal trivalent influenza vaccine, adjuvanted, preservative free Brody Ibrahim DPM Work Phone: [facility] 02-28-2023 influenza virus vacc ine, unspecified formulation Topher SAAVEDRA [facility] 02-28-2023 Influenza, Seasonal, Quadrivalent, Adjuvanted Brody Ibrahim DPM Work Phone: [facility] 04-16-2022 influenza virus vacc ine, unspecified formulation Topher SAAVEDRA [facility] 04-16-2022 Influenza, Seasonal, Quadrivalent, Adjuvanted Brody Ibrahim DPM Work Phone: [facility] 03-23-2022 Moderna Bivalent Simmons ster Vaccination Brody Ibrahim DPM Work Phone: [facility] 03-23-2022 Moderna SARS-CoV-2 50mcg/0.5mL Booster Brody Ibrahim DPM Work Phone: [facility] 03-23-[address] 12 Years And Older Brody Ibrahim DPM Work Phone: [facility] 03-23-2022 SARS-CoV-2 (COVID-19 ) [id number] Topher SAAVEDRA [facility] 06-18-2021 SARS-CoV-2 (COVID-19 ) mRNA BNT-162b2 vax Topher SAAVEDRA [facility] 05-06-2021 influenza virus vacc ine, unspecified formulation Topherpeter SAAVEDRA [facility] 05-06-2021 Influenza, Seasonal, Quadrivalent, Adjuvanted Brody Ibrahim DPM Work Phone: [facility] 05-06-2021 SARS-CoV-2 (COVID-19 ) Ad26 vaccine, recombinant Topher SAAVEDRA [facility] 08-28-2020 SARS-CoV-2 (COVID-19 ) mRNA BNT-162b2 vax Topher SAAVEDRA [facility] 08-28-2020 SARS-CoV-2, Unspecified Garry Ibrahim DPM Work Phone: [facility] 08-27-2020 Pfizer Purple Cap SARS-CoV-2 Vaccination Brody Ibrahim DPM Work Phone: [facility] 08-08-2020 SARS-CoV-2 (COVID-19 ) mRNA BNT-162b2 vax Topher SAAVEDRA [facility] Comment on above: Result Comment: 2022: [id number] 08-08-2020 SARS-CoV-2, Unspecified Garry Ibrahim DPM Work Phone: [facility] 08-07-2020 Pfizer Purple Cap SARS-CoV-2 Vaccination Brody Ibrahim DPM Work Phone: [facility] 08-04-2020 SARS-CoV-2 (COVID-19 ) Ad26 vaccine, recombinant Topher SAAVEDRA [facility] 03-22-2020 influenza virus vacc ine, unspecified formulation Topher SAAVEDRA [facility] 03-22-2020 Influenza, Seasonal, Quadrivalent, Adjuvanted Brody Rusher DPM Work Phone: [facility] 03-06-2019 pneumococcal conjuga te vaccine, 13 valent Topherpeter SAAVEDRA [facility] 03-05-2019 influenza virus vacc ine, unspecified formulation Topher SAAVEDRA [facility] 03-05-2019 influenza, high dose seasonal, preservative-free Brody Rusher DPM Work Phone: [facility] 03-05-2019 pneumococcal polysaccharide vaccine, 23 valent Topherpeter SAAVEDRA [facility] 03-04-2019 Influenza, High-dose Seasonal, Quadrivalent, Preservative Free Brody Rusher DPM Work Phone: [facility] 03-04-2019 pneumococcal polysaccharide vaccine, 23 valent Brody Rusher DPM Work Phone: [facility] 03-03-2018 influenza virus vacc ine, unspecified formulation Topher SAAVEDRA [facility] 03-03-2018 influenza, high dose seasonal, preservative-free Brody Rusher DPM Work Phone: [facility] 03-03-2018 pneumococcal conjuga te vaccine, 13 valent Topher SAAVEDRA [facility] 03-03-2018 pneumococcal polysaccharide vaccine, 23 valent Brody Rusher DPM Work Phone: [facility] 03-02-2018 pneumococcal conjuga te vaccine, 13 valent Brody Ibrahim DPM Work Phone: [facility] 04-06-2017 influenza virus vacc ine, unspecified formulation Topher SAAVEDRA [facility] 04-06-2017 influenza, injectabl e, quadrivalent, preservative free Brody Ibrahim DPM Work Phone: [facility] 12-04-2016 pneumococcal polysaccharide vaccine, 23 valent Topher SAAVEDRA [facility] 12-04-2016 zoster vaccine, live Topher SAAVEDRA [facility] 03-06-2016 Influenza Vaccine, unspecified formulation Mthz Schedule [facility] 03-06-2016 influenza virus vacc ine, H5N1, A/[place] (national stockpile) Brody Ibrahim DPM Work Phone: [facility] 03-06-2016 influenza virus vacc ine, unspecified formulation Brody Ibrahim DPM Work Phone: [facility] 03-06-2016 Influenza, High-dose Seasonal, Quadrivalent, Preservative Free Brody Ibrahim DPM Work Phone: [facility] 03-06-2016 influenza, unspecifi ed formulation Topher SAAVEDRA [facility] 01-23-2016 influenza virus vacc ine, unspecified formulation Topher SAAVEDRA [facility] 01-23-2016 influenza, injectabl e, quadrivalent, preservative free Brody Ibrahim DPM Work Phone: [facility] 06-06-2015 pneumococcal polysaccharide vaccine, 23 valent Topher SAAVEDRA [facility] 03-23-2014 influenza virus vacc ine, unspecified formulation Topher SAAVEDRA [facility] 03-23-2014 influenza, seasonal, injectable Brody Ibrahim DPM Work Phone: [facility] 04-06-2013 influenza virus vacc ine, unspecified formulation Topher SAAVEDRA [facility] 04-06-2013 influenza, seasonal, injectable Brody Ibrahim DPM Work Phone: [facility] 04-06-2013 zoster vaccine, live Topher SAAVEDRA [facility] 04-05-2013 zoster vaccine, live Brody Ibrahim DPM Work Phone: [facility] 04-21-2009 novel influenza-H1N1 -09, preservative-free, injectable Brodygarrick Ibrahim DPM Work Phone: [facility] Payers Date Payer Category Payer Private Health Insurance [facility] [id number] 2022 Unknown 2017 Medicare [id number] 2017 Medicare xxxxxxxxxxx [id number] 1959 Medicare [id number] .[id number] 1959 Private Health Insurance [id number] 1.2.840.617438.1.13.239.2 .7.3.244848.315 1952 Unknown [id number] 2.16.840.1.516939.3.579.2 .593 1952 Unknown [id number] 2.16.840.1.365449.3.579.2 .593 1952 Unknown [id number] 2.16.840.1.917435.3.579.2 .593 1952 Unknown [id number] 2.16.840.1.845449.3.579.2 .593 1952 Unknown [id number] 2.16.840.1.036430.3.579.2 .593 1952 Unknown [id number] 2.16.840.1.017912.3.579.2 .593 1952 Unknown [id number] 2.16.840.1.626899.3.579.2 .593 1952 Unknown [id number] 2.16.840.1.654902.3.579.2 .593 1952 Unknown [id number] 2.16.840.1.983720.3.579.2 .593 1952 Unknown [id number] 2.16.840.1.573835.3.579.2 .593 1952 Unknown [id number] 2.16.840.1.568400.3.579.2 .593 1952 Unknown [id number] 2.16.840.1.982207.3.579.2 .593 1952 Unknown [id number] 2.16.840.1.382068.3.579.2 .727 1952 Unknown [id number] 2.16.840.1.261502.3.579.2 .727 1952 Unknown [id number] 2.16.840.1.701505.3.579.2 .72 1952 Unknown [id number] 2.16.840.1.047163.3.579.2 .1952 Unknown [id number] 2.16.840.1.639414.3.579.2 .1952 Unknown [id number] 2.16.840.1.840261.3.579.2 .1952 Unknown [id number] 2.16.840.1.654349.3.579.2 .1952 Unknown [id number] 2.16.840.1.573681.3.579.2 1952 Unknown [id number] 2.16840.1.699619.3.579.2 1952 Unknown [id number] 2.16.840.1.170107.3.579.2 .1952 Unknown [id number] 2.16.840.1.963431.3.579.2 1952 Unknown [id number] 2.16.840.1.073491.3.579.2 1952 Unknown [id number] 2.16.840.1.148863.3.579.2 .1952 Unknown [id number] 2.16.840.1.616759.3.579.2 .1952 Unknown [id number] 2.16.840.1.577445.3.579.2 .1952 Unknown [id number] 2.16.840.1.801894.3.579.2 .173 1952 Unknown [id number] 2.16.840.1.310556.3.579.2 .173 1952 Unknown [id number] 2.16.840.1.525216.3.579.2 .173 1952 Unknown [id number] 2.16.840.1.044160.3.579.2 .1258 1952 Unknown [id number] 2.16.840.1.638266.3.579.2 .1258 1952 Unknown [id number] 2.16.840.1.741300.3.579.2 .1258 1952 Unknown [id number] 2.16.840.1.200338.3.579.2 .1258 1952 Unknown [id number] 2.16.840.1.405532.3.579.2 .1258 1952 Unknown [id number] 2.16.840.1.330320.3.579.2 .1258 1952 Unknown [id number] 2.16.840.1.680161.3.579.2 .1258 1952 Unknown [id number] 2.16.840.1.031115.3.579.2 .1258 1952 Unknown [id number] 2.16.840.1.776734.3.579.2 .1258 1952 Unknown [id number] 2.16.840.1.565127.3.579.2 .1258 1952 Unknown [id number] 2.16.840.1.705864.3.579.2 .1258 1952 Unknown [id number] 2.16.840.1.795487.3.579.2 .1259 Medicare [id number] Social History Date Type Detail Facility Start: 10-18-2018 End: 12-06-2023 Tobacco smoking status NHIS Former smoker [place] Start: 08-31-1979 End: 06-06-2012 History of tobacco use Current smoker [place] Start: 10-18-2018 End: 09-18-2024 Cigarettes smoked current (pack per day) - Reported [facility] Start: 10-18-2018 End: 09-18-2024 [facility] Start: 01-23-2014 End: 11-02-2023 Tobacco Comment quit smoking in 1999 [facility] Start: 1950 Sex Assigned At Not on file [facility] Start: 10-18-2018 End: 11-02-2023 Alcohol intake Current non-drinker of alcohol (finding) [facility] LATHA Start: 10-22-2020 End: 12-06-2023 Tobacco use and exposure [facility] Start: 01-18-2022 End: 01-28-2022 Exposure to SARS-CoV-2 (event) Not sure [facility] 24/7 Card Start: 08-31-1979 End: 06-06-2012 History of tobacco use Cigarette Smoker [facility] [employer] Work Phone: Start: 05-17-2023 End: 09-18-2024 Alcohol intake Current drinker of alcohol (finding) [...] Comment Last smoked : > 10 years [facility] Start: 01-19-2023 Alcohol Comment 1-2 drinks 2-4 x a month in the past year, Caffeine intake: 1-2 cups per day coffee [facility] Start: 08-18-2022 Gender identity Identifies as male gender (finding) [facility] Functional Status Date Assessment Result Facility 09-18-2024 Patient Health Quest ionnaire 2 item (PHQ-2) [Reported] [facility] 05-21-2024 Functional Status N/A [facility] 12-05-2023 Functional Status N/A [facility] 06-20-2023 Functional Status N/A [facility] 11-05-2022 Functional Status N/A [facility] 06-18-2022 Functional Status N/A [facility] 05-17-2022 Functional Status N/A [facility] 02-01-2022 Functional Status N/A [facility] Clinical Notes 10-22-2020 to 12-03-2024 Telephone Encounter - Laisha Castaneda - 12/03/2024 8:18 AM EDTTelephone Encounter - Laisha Castaneda - 12/03/2024 8:18 AM EDTTelephone Encounter - Jordan Duncan MD - 10/18/2024 12:45 PM EDT Note Date & Type Note Facility 12-03-2024 Telephone encounter Note Bret called requesting a refill on his cyclobenzaprine (Flexeril) [facility] [place] [facility] 12-03-2024 Miscellaneous Notes Bret called requesting a refill on his cyclobenzaprine (Flexeril) [facility] MG [facility] [place] documented in this encounter [facility] 10-18-2024 Telephone encounter Note Reviewed in prescription sent. [facility] 10-18-2024 Miscellaneous Notes Reviewed in prescription sent. Bret called needing a couple refills and [...] is asking for these to go to [facility] in [place]. documented in this encounter [facility] 10-18-2024 Telephone encounter Note Bret called needing a couple refills and [...] is asking for these to go to [facility] in [place]. [facility] 09-18-2024 History of Present illness Narrative Images from [...] diabetes mellitus, dyslipidemia, hypertension, male gender, microalbuminuria, obesity (BMI >= 30 kg/m2), and smoking/ tobacco exposure. Use of agents associated with hypertension: steroids. History of target organ damage: prior coronary revascularization. Hyperlipidemia Pt who presents for follow-up of dyslipidemia. A repeat fasting lipid profile was done. The patient does not use medications that may worsen dyslipidemias (corticosteroids, progestins, anabolic steroids, diuretics, beta-blockers, amiodarone, cyclosporine, olanzapine). Exercise: daily. Diabetes Mellitus Patient presents for follow up of diabetes. Current symptoms include: paresthesia of the feet. Symptoms have stabilized. Patient denies increased appetite and visual disturbances. Evaluation to date has included: fasting lipid panel and hemoglobin A1C. Home sugars: BGs consistently in an acceptable range. Review of Systems Constitutional: Negative for activity change and fatigue. Respiratory: Negative for cough, shortness of breath and wheezing. Cardiovascular: Negative for chest pain, palpitations and leg swelling. Neurological: Negative for light-headedness and headaches. Objective The patient is pleasant and in no acute distress. The neck is supple and trachea is midline. No masses are appreciated. The heart is regular rate and rhythm without S3, S4. No murmur. The patient has normal respiratory pattern. The breath sounds are symmetrical without evidence of rhonchi or rales. No wheezing. The skin is warm and dry. The lower extremities have trace edema. The patient has good eye contact and speech is clear. Appropriate affect. Visit Vitals BP 124/70 Pulse 63 Ht 6' 6 Wt 347 lb SpO2 98% BMI 40.10 kg/m Smoking Status Former BSA 2.94 m Allergies Allergen Reactions Clindamycin Diarrhea Other reaction(s): [...] 50 MCG (1999 UT) tablet Take by mouth cyclobenzaprine (Flexeril) 10 MG tablet Take 1 tablet (10 mg) by mouth 3 (three) times a day as needed for muscle spasms. 90 tablet 0 famotidine (Pepcid) 20 MG tablet Take 1 tablet (20 mg) by mouth in the morning and 1 tablet (20 mg) before bedtime. 180 tablet 0 latanoprost (Xalatan) 0.005 % ophthalmic solution Multiple Vitamin (multivitamin) capsule Take 1 capsule by mouth Daily oxybutynin XL (Ditropan-XL) 5 MG 24 hr tablet Simbrinza 1-0.2 % suspension every 8 (eight) hours tamsulosin (Flomax) 0.4 MG 24 hr capsule Take 0.4 mg by mouth in the morning and 0.4 mg in the evening. Take after meals. timolol (Timoptic) 0.5 % ophthalmic solution Administer 1 drop into both eyes in the morning and 1 drop before bedtime. [DISCONTINUED] losartan (Cozaar) 50 MG tablet Take 1 tablet (50 mg) by mouth Daily 90 tablet 1 [DISCONTINUED] metoprolol tartrate (Lopressor) 100 MG tablet Take 1 tablet (100 mg) by mouth See administration instructions 1 tablet in AM. 0.5 tablet in PM 135 tablet 1 [DISCONTINUED] pioglitazone (Actos) 30 MG tablet Take 1 tablet (30 mg) by mouth in the morning. 90 tablet 1 amLODIPine (Norvasc) 5 MG tablet Take 5 mg by mouth Daily (Patient not taking: Reported on 09/18/2024) isosorbide mononitrate ER (Imdur) 30 MG 24 hr tablet Take 30 mg by mouth Daily (Patient not taking: Reported on 09/18/2024) [DISCONTINUED] testosterone cypionate (Depo-Testosterone) 200 MG/ML injection Inject 200 mg into the shoulder, thigh, or buttocks every 28 (twenty-eight) days. (Patient not taking: Reported on 07/25/2024) No current facility-administered medications on file prior to visit. 1. Essential hypertension (CMS/HCC) (Primary) Chronic problem, stable, to goal. In prescribing a renewal to their current [...] order to credit prescription drug management) - POCT microalbumin manually resulted - losartan (Cozaar) 50 MG tablet; Take 1 tablet (50 mg) by mouth Daily Dispense: 90 tablet; Refill: 1 - metoprolol tartrate (Lopressor) 100 MG tablet; Take 1 tablet (100 mg) by mouth See administration instructions 1 tablet in AM. 0.5 tablet in PM Dispense: 135 tablet; Refill: 0 2. Microalbuminuria Office Visit on 09/18/2024 Component Date Value Ref Range Status MICROALBUMIN, URINE 09/18/2024 150 Final ALB/CREAT RATIO 09/18/2024 300 Final URINE CREAT 09/18/2024 50 Final - POCT microalbumin manually resulted Chronic problem that has worsened some. He is at the borderline for microalbuminuria. Chronic problem, defining an aspect the nephropathy, [...] used for risk stratification for cardiovascular disease. 3. Type 2 diabetes mellitus with diabetic microalbuminuria, without long-term current use of insulin (CMS/HCC) As above - POCT microalbumin manually resulted 4. Type 2 diabetes mellitus with diabetic polyneuropathy, without long-term current use of insulin (CMS/HCC) Chronic problem, stable, he does think the burning is a little bit worse than it has been previously. After discussion about the importance of good blood pressure and sugar control, having a walking program of some sort, we did discuss pain management type relief with gabapentin. I did explain to him how to titrate into the gabapentin in the major side effects. Dragon prescription new - POCT microalbumin manually resulted - gabapentin (Neurontin) 100 MG capsule; Titrate from 1 to 4 capsules three times daily as needed for pain Dispense: 100 capsule; Refill: 0 - pioglitazone (Actos) 30 MG tablet; Take 1 tablet (30 mg) by mouth in the morning. Dispense: 90 tablet; Refill: 1 5. Mixed hyperlipidemia (CMS/HCC) Chronic problem that is currently untreated. He understands he would be better served by treatment. They talked about some of the other injectables he is working with another physician on that. 6. Adverse reaction to statin medication Exclusionary measure for HEDIS. 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 Hearing Screening: Yes, concerned about hearing loss Cognitive Screening Self Assessment: No concerns rasied by family members, friends, or caretakers Three Word Registration: Zakiya Decker, Finger Clock Drawing: Normal Clock - 2 Three Word Recall: 2/3 words correct - 2 Total Score (0-5 Points): 4 Advance Care Planning Do you have a living will?: Yes Do you have a medical power of commonwealth attorney?: Yes Who is your medical power of commonwealth attorney?: Mary Yancey- Daughter Objective : BP [...] Morbid (severe) obesity due to excess calories ([facility]) Patient has lost some weight but with his comorbid conditions he still meets the criteria for morbid obesity. 6. BMI 39.0-39.9,adult Defines the morbid obesity 7. Type 2 diabetes mellitus with diabetic polyneuropathy, without long-term current use of insulin ([facility]) Chronic problem, stable, monitored longitudinally. 8. Type 2 diabetes mellitus with diabetic microalbuminuria, without long-term current use of insulin ([facility]) Chronic problem, stable, monitored longitudinally. 9. Type 2 diabetes mellitus with foot ulcer (CODE) ([facility]) Chronic problem, stable, monitored longitudinally. Primarily managed [...] longitudinally.Primarily managed by Podiatry 13. 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 [facility] 07-05-2024 History of Present illness [...] any dizziness. documented in this encounter [facility] 06-18-2024 Telephone encounter Note Prescription sent [facility] 06-18-2024 Miscellaneous Notes Prescription sent Bret left a message requesting a refill on his Famotidine to [facility] in [place]. documented in this encounter [facility] 06-18-2024 Telephone encounter Note Bret left a message requesting a refill on his Famotidine to [facility] in [place]. [facility] 06-08-2024 Note Application for R2G filled out for patient. Requires patient signature. Will notify Cardiology accounting support specialist to coordinate signature by patient. Application uploaded to media. Patient will come to Cardiology clinic to sign. Iron Bess PharmD Cardiology Outpatient Clinical Pharmacist 06/14/24 [facility] 06-08-2024 Note Contacted patient to discuss lipids management. Reviewed mechanism of action, side effects, and administration of Repatha with patient; pt agreeable to start. Will send RX to assess costs. Of note, pt may qualify for patient assistance [employer]. Will fill out paperwork and send to Cardiology to assist in obtaining signature and income documents. Iron Bess PharmD Cardiology Outpatient Clinical Pharmacist 06/11/24 [facility] 06-08-2024 Note [facility] - Lipids Provider: Dr. Huddleston Department: Cardiology Juan Miguel Jennings is a 74 y.o. male with PMH of CAD s/p TN and stents, HTN, HLD, MO w/ CPAP, [...] Bess PharmD Cardiology Outpatient Clinical Pharmacist 06/11/24 [facility] 05-21-2024 Hospital Discharge instructions Patient [...] your health care provider. General instructions Take anxy-zxn-pyvhrmo and prescription medicines only as told by [...] provider. Document Revised: 02/09/2021 Document Reviewed: 02/09/2021 [employer] Patient Education 2023 [employer]ocis. Follow Up Care 02/27/2024 09:12:26 With:KERI NOLASCO, Topher Ordoñez, URL Address: [facility] [address] , [place] [address]- When: Unknown [facility] 05-21-2024 Evaluation + Plan note Diagnostic Tests PendingTestosterone Level Total 05/21/24CBC w/ Auto Diff 05/21/24 [facility] 05-21-2024 Note Patient Education Obstetrics [...] health care provider. General instructions ??? Take zocd-aor-ryqgofs and prescription medicines only as told by [...] drink, and whe (more content not included)... [facility] 05-15-2024 History of Present illness Narrative [...] 2010 Geraldo Raza CATARACT EXTRACTION Left 2019 [facility] OTHER SURGICAL HISTORY 03/2017 lesions on bottom of both feet, [facility] OTHER SURGICAL HISTORY 4 stents Geraldo Stafford [...] Brody Ibrahim DPM documented in this encounter [facility] 05-15-2024 Instructions Brody Ibrahim DPM - 05/15/2024 10:15 AM EST As noted documented in this encounter [facility] 05-02-2024 Note Cardiovascular Medic [facility] SUBJECTIVE Chief Complaint Patient presents with Coronary Artery Disease Hypertension Juan Miguel Jennings is a 74 y.o. male here for follow-up. HPI PMHx: CAD s/p TN and stenting, HTN, HLD, MO and wears [...] Rfl: Physical Exa (more content not included)... [facility] 05-02-2024 Note Patient here for [...] All other systems reviewed and are negative. [facility] 04-23-2024 History of Present illness Narrative Images from the original note were not included. Subjective Patient ID: Juan Miguel Jennings is a 74 y.o. 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 (Juan Miguel Jennings is a [...] Brody Ibrahim DPM documented in this encounter [facility] 04-23-2024 Instructions Brody Ibrahim DPM - 04/23/2024 11:00 AM EST Instructions as noted documented in this encounter [facility] 04-09-2024 Telephone encounter Note Custom orthotics arrived senthil Gruber [facility] 04-09-2024 Miscellaneous Notes Custom orthotics arrived senthil Gruber documented in this encounter [facility] 03-29-2024 History of Present illness Narrative Images from the original note were not included. Subjective Patient ID: Juan Migeul Jennings is a 74 y.o. male who [...] History: Procedure Laterality Date BACK SURGERY 2010 Ry, [place] [facility] OTHER SURGICAL HISTORY 03/2017 lesions on bottom of both feet, [facility] OTHER SURGICAL HISTORY 4 stents Geraldo Stafford [...] Measurements obtained in the weight-bearing position utilizing [employer] device. Foam impressions obtained simulated weight-bearing. Patient [...] Brody Ibrahim DPM documented in this encounter [facility] 03-29-2024 Instructions Brody Ibrahim DPM - 03/29/2024 1:00 PM EDT As noted documented in this encounter [facility] 03-27-2024 History of Present illness Narrative [...] with Hgb A1C. Also this is a xjog-bz-yxuh visit for consideration for diabetic shoes. Patient [...] polyneuropathy, without long-term current use of insulin ([facility]) (Primary) Chronic problem, stable, to goal. Patient has multiple podiatric issues. The forms from Podiatry were reviewed. Patient's feet were examined. I concur with the forms from Podiatry. Diabetic shoes are medically indicated. I certify that I had a [id number]-iz-[id number] encounter with this patient at todays office visit. Due to this medical condition the patient requires DME. I certify that based on my findings The DME ordered is medically necessary for this patient. This has been discussed with the patient and/or their customer operations representative and mutually agreed upon. See the [...] 6. Partial nontraumatic amputation of foot, left ([facility]) Comorbid condition currently being managed by Podiatry 7. Venous stasis dermatitis of both lower extremities Chronic problem, stable. Does not appear to be progressing significantly. Discussed the importance of keeping the area moisturized. 8. Type 2 diabetes mellitus with diabetic microalbuminuria, without long-term current use of insulin ([facility]) Chronic problem, stable, to goal. 9. Microalbuminuria [...] stratification for cardiovascular disease. 10. Essential hypertension ([facility]) In prescribing a renewal to their current [...] changes as able documented in this encounter [facility] 03-13-2024 History of Present illness Narrative [...] Saavedra, TB TOTAL KNEE ARTHROPLASTY Right 2014 Alexsander Brennan [...] Brody Ibrahim DPM documented in this encounter [facility] 03-13-2024 Instructions Brody Ibrahim DPM - 03/13/2024 9:45 AM EDT As noted documented in this encounter [facility] 12-05-2023 Hospital Discharge instructions Patient Education [...] therapy. Follow these instructions at home: Take deup-atl-zkpwcpe and prescription medicines only as told by [...] provider. Document Revised: 01/22/2021 Document Reviewed: 01/22/2021 [employer] Patient Education 2022 Neocis. Follow Up Care 12/05/2023 07:35:26 With:KERI NOLASCO, Topher Ordoñez, URL Address: [facility] [address] [place] [address] [phone] When: Unknown [facility] 12-05-2023 Note Patient Education Urology Hypogonadism, [...] Follow these instructions at home: ? Take esuz-gax-togjwmd and prescription medicines only as told by [...] provider. Document Revised: (more content not included)... [facility] 11-07-2023 Hospital Discharge instructions Follow Up Care 11/07/2023 08:41:09 With:KERI NOLASCO, Topher Ordoñez, URL Address: [facility] [address] , [place] [address]- [phone] When: Unknown [facility] 07-19-2023 History of Present illness [...] 2023; effectively healed following treatment at [facility] wound Center. Currently relates no bleeding or [...] with wound right foot; effectively managed at [facility] wound care center. Care plan: conservative [...] or corrected. Thank you for your understanding. Bordy Ibrahim DPM documented in this encounter [facility] 07-19-2023 Instructions Brody Ibrahim DPM - 07/19/2023 10:30 AM EST As noted documented in this encounter [facility] 06-20-2023 Hospital Discharge instructions Patient [...] therapy. Follow these instructions at home: Take xcrj-pqc-clsyoii and prescription medicines only as told by [...] provider. Document Revised: 01/22/2021 Document Reviewed: 01/22/2021 [employer] Patient Education 2022 [employer]is. Follow Up Care 02/08/2023 12:23:35 With:KERI NOLASCO, Topher Ordoñez, URL Address: [facility] [address] , [place] [address] [phone] When: Unknown Comments:6 mos w/ PSA and T level (pt to also get PSA now) [facility] [place] 11-05-2022 Hospital Discharge instructions Patient Education [...] urethra. Follow these instructions at home: Take voqj-uml-folxfvs and prescription medicines only as told by [...] provider. Document Revised: 12/09/2021 Document Reviewed: 12/09/2021 [employer] Patient Education 2022 [employer] Follow Up Care 05/17/2022 10:46:35 With:KERI NOLASCO, Topher Ordoñez, URL Address: [facility] [address], [place] [address]- When: Unknown [facility] 11-03-2022 History of Present illness Narrative [...] see for visit documented in this encounter [facility] Work Phone: 09-15-2022 Note EXAM: XR CHEST 2 V HISTORY: Pre-surgery evaluation COMPARISON: None. TECHNIQUE: PA and lateral views of the chest. FINDINGS: The cardiomediastinal silhouette is normal. No focal consolidation is identified. There is no pneumothorax. No pleural effusion is noted. The osseous structures are intact. IMPRESSION: No acute cardiopulmonary process. Electronically authenticated by: DARRIUS BOLTON Date: 2022-09-15 12:26 [facility] 06-18-2022 Hospital Discharge instructions Patient [...] urethra. Follow these instructions at home: Take wlyd-rsk-zagfqcj and prescription medicines only as told by [...] 05/23/2006 Document Revised: 04/17/2019 Document Reviewed: 06/27/2017 [employer] Patient Education 2020 Neocis. Follow Up Care 06/14/2022 09:33:13 With:KERI NOLASCO, Topher Ordoñez, URL Address: [address] [place] [phone]- When: Unknown [facility] 05-17-2022 Hospital Discharge instructions Patient Education [...] urethra. Follow these instructions at home: Take idjq-ljf-sjdumhn and prescription medicines only as told by [...] 05/23/2006 Document Revised: 04/17/2019 Document Reviewed: 06/27/2017 [employer] Patient Education 2020 [employer]is. Follow Up Care 04/21/2022 09:42:50 With:KERI NOLASCO, Topher Ordoñez, URL Address: [facility] [address] , [place] [address]- When: Unknown [facility] 03-23-2022 Note PROCEDURE: XR FOOT R [...] authenticated by: BRODY PAYAN Date: 2022-03-23 06:26 [facility] 02-01-2022 Hospital Discharge instructions Patient [...] urethra. Follow these instructions at home: Take hwjp-vqw-jaggtgy and prescription medicines only as told by [...] 05/23/2006 Document Revised: 04/17/2019 Document Reviewed: 06/27/2017 [employer] Patient Education 2020 [employer]is. Follow Up Care 08/03/2021 15:20:11 With:Topher SAAVEDRA MD, URL Address: [address] [place] [address]- When: Unknown [facility] 10-22-2020 History of Present illness Narrative 1225 Patient arrives ambulating from [facility] for phlebotomy. No complaints at this time. [...] ambulating without complaints documented in this encounter [employer] Phone: Evaluation + Plan note Future Appointments Appointment Date:09/28/2021 09:00:00 AM Scheduled Provider: Location:[facility] Appointment Type:URO Nurse Visit Appointment Date:02/01/2022 09:45:00 AM Scheduled Provider:Topher SAAVEDRA MD Location:[facility] Appointment Type:URO Office Visit [facility] Evaluation + Plan note Future Appointments Appointment Date:10/26/2021 09:00:00 AM Scheduled Provider: Location:[facility] Appointment Type:URO Nurse Visit Appointment Date:02/01/2022 09:45:00 AM Scheduled Provider:Topher SAAVEDRA [facility]O Office Visit [facility] Evaluation + Plan note Future Appointments Appointment Date:11/23/2021 09:00:00 AM Scheduled Provider: Location:[facility] Appointment Type:URO Nurse Visit Appointment Date:02/01/2022 09:45:00 AM Scheduled Provider:Topher SAAVEDRA MD Location:[facility] Appointment Type:URO Office Visit [facility] Evaluation + Plan note Future Appointments Appointment Date:12/21/2021 09:00:00 AM Scheduled Provider: [facility] Type:[facility]O Nurse Visit Appointment Date:02/01/2022 09:45:00 AM Scheduled Provider:Topher SAAVEDRA MD [facility] Type:[facility]O Office Visit [facility] Evaluation + Plan note Future Appointments Appointment Date:02/01/2022 09:45:00 AM Scheduled Provider:Topher SAAVEDRA MD [facility] Appointment Type:URO Office Visit Diagnostic Tests PendingTestosterone Level Total 12/21/21 [facility] Evaluation + Plan note Future Appointments Appointment Date:03/01/2022 09:30:00 AM Scheduled Provider: [facility] Appointment Type:URO Nurse Visit Diagnostic Tests PendingTestosterone Level Total 04/06/22PSA Total 03/06/22 [facility] Evaluation + Plan note Future Appointments Appointment Date:03/31/2022 08:15:00 AM Scheduled Provider: Location:[facility] Appointment Type:URO Nurse Visit [facility] Evaluation + Plan note Future Appointments Appointment Date:04/21/2022 09:15:00 AM Scheduled Provider: Location:[facility] Appointment Type:URO Nurse Visit [facility] Evaluation + Plan note Future Appointments Appointment Date:05/19/2022 08:00:00 AM Scheduled Provider:Mandy Schaefer MD Location:[facility] Appointment Type:URO Office Visit Diagnostic Tests PendingPSA Total 04/16/22Testosterone Level Total 04/16/22 [facility] Evaluation + Plan note Future Appointments Appointment Date:06/14/2022 09:00:00 AM Scheduled Provider: Location:[facility] Appointment Type:URO Nurse Visit Appointment Date:11/15/2022 08:45:00 AM Scheduled Provider:Topher SAAVEDRA MD Location:[facility] Appointment Type:URO Office Visit Diagnostic Tests PendingPSA Total 05/17/22Testosterone Level Total 05/17/22 [facility] Evaluation + Plan note Future Appointments Appointment Date:09/06/2022 09:00:00 AM Scheduled Provider: Location:[facility] Appointment Type:URO Nurse Visit Appointment Date:11/15/2022 08:45:00 AM Scheduled Provider:Topher SAAVEDRA MD Location:[facility] Appointment Type:URO Office Visit [facility] Evaluation + Plan note Future Appointments Appointment Date:10/05/2022 09:00:00 AM Scheduled Provider: Location:[facility] Appointment Type:URO Nurse Visit Appointment Date:10/29/2022 08:45:00 AM Scheduled Provider:Topher SAAVEDRA MD [facility] Type:[facility]O Office Visit Appointment Date:11/05/2022 09:45:00 AM Scheduled Provider:Topher SAAVEDRA MD [facility] Appointment Type:URO Office Visit [facility] Evaluation + Plan note Future Appointments Appointment Date:11/05/2022 09:45:00 AM Scheduled Provider:Topher SAAVEDRA MD [facility] Appointment Type:URO Office Visit [facility] Evaluation + Plan note Future Appointments Appointment Date:12/03/2022 09:15:00 AM Scheduled Provider: Location:[facility] Appointment Type:URO Nurse Visit Diagnostic Tests PendingTestosterone Level Total 11/05/22PSA Total 11/05/22 [facility] Evaluation + Plan note Future Appointments Appointment Date:01/03/2023 08:15:00 AM Scheduled Provider: Location:[facility] Appointment Type:URO Nurse Visit [facility] Evaluation + Plan note Future Appointments Appointment Date:01/31/2023 08:45:00 AM Scheduled Provider: [facility] Appointment Type:URO Nurse Visit [facility] Evaluation + Plan note Future Appointments Appointment Date:03/07/2023 08:45:00 AM Scheduled Provider: Location:[facility] Appointment Type:URO Nurse Visit Appointment Date:04/04/2023 08:45:00 AM Scheduled Provider: Location:[facility] Appointment Type:URO Nurse Visit Appointment Date:05/02/2023 08:45:00 AM Scheduled Provider: Location:[facility] Appointment Type:URO Nurse Visit Appointment Date:05/27/2023 09:45:00 AM Scheduled Provider:Topher SAAVEDRA MD Location:[facility] Appointment Type:URO Office Visit [facility] Evaluation + Plan note Future Appointments Appointment Date:05/02/2023 08:45:00 AM Scheduled Provider: Location:[facility] Appointment Type:URO Nurse Visit Appointment Date:06/20/2023 10:30:00 AM Scheduled Provider:Topher SAAVEDRA MD Location:[facility] Appointment Type:URO Office Visit [facility] Evaluation + Plan note Future Appointments Appointment Date:06/20/2023 10:30:00 AM Scheduled Provider:Topher SAAVEDRA MD Location:[facility] Appointment Type:URO Office Visit Diagnostic Tests PendingTestosterone Level Total 05/09/23 [facility] [employer] Evaluation + Plan note Future Appointments Appointment Date:07/18/2023 09:30:00 AM Scheduled Provider: Location:[facility] Appointment Type:URO Nurse Visit Diagnostic Tests PendingPSA Total 06/20/23Testosterone Level Total 06/20/23 [facility] [employer] Evaluation + Plan note Future Appointments Appointment Date:08/15/2023 10:00:00 AM Scheduled Provider: Location:[facility] Appointment Type:URO Nurse Visit [facility] [employer] Evaluation + Plan note Future Appointments Appointment Date:09/09/2023 08:30:00 AM Scheduled Provider: Location:[facility] Appointment Type:URO Nurse Visit [facility] [employer] Evaluation + Plan note Future Appointments Appointment Date:10/07/2023 08:30:00 AM Scheduled Provider: Location:[facility] Appointment Type:URO Nurse Visit [facility] Evaluation + Plan note Future Appointments Appointment Date:11/07/2023 09:00:00 AM Scheduled Provider: Location:[facility] Appointment Type:URO Nurse Visit [facility] Evaluation + Plan note Future Appointments Appointment Date:12/05/2023 10:45:00 AM Scheduled Provider:Topher SAAVEDRA MD Location:[facility] Appointment Type:URO Office Visit [facility] Evaluation + Plan note Future Appointments Appointment Date:01/02/2024 09:00:00 AM Scheduled Provider: Location:[facility] Appointment Type:URO Nurse Visit Diagnostic Tests PendingTestosterone Level Total 12/05/23emoglobin 12/05/23 [facility] Evaluation + Plan note Future Appointments Appointment Date:01/02/2024 09:00:00 AM Scheduled Provider: Location:[facility] Appointment Type:URO Nurse Visit [facility] Evaluation + Plan note Future Appointments Appointment Date:02/27/2024 09:00:00 AM Scheduled Provider: Location:[facility] Appointment Type:URO Nurse Visit [facility] Evaluation + Plan note Future Appointments Appointment Date:03/27/2024 09:00:00 AM Scheduled Provider: Location:[facility] Appointment Type:URO Nurse Visit Appointment Date:04/23/2024 09:30:00 AM Scheduled Provider: Location:[facility] Appointment Type:URO Nurse Visit Appointment Date:05/21/2024 10:45:00 AM Scheduled Provider:Topher SAAVEDRA MD Location:[facility] Appointment Type:URO Office Visit [facility] Evaluation + Plan note Future Appointments Appointment Date:04/23/2024 09:30:00 AM Scheduled Provider: Location:[facility] Appointment Type:URO Nurse Visit Appointment Date:05/21/2024 10:45:00 AM Scheduled Provider:Topher SAAVEDRA MD Location:[facility] Appointment Type:URO Office Visit [facility] Evaluation + Plan note Future Appointments Appointment Date:05/08/2024 09:00:00 AM Scheduled Provider: Location:[facility] Appointment Type:URO Nurse Visit Appointment Date:05/21/2024 10:45:00 AM Scheduled Provider:Topher SAAVEDRA MD Location:[facility] Appointment Type:URO Office Visit [facility] [employer] Evaluation note Diagnosis Polycythemia- Primary Polycythemia vera documented in this encounter [employer] Phone: evaluation note* Diagnosis Polycythemia- Primary Polycythemia vera documented in this encounter [facility] [employer] Phone: evaluation note* Diagnosis Dermatophytosis of nail- Primary Dystrophic nail Other specified disease of nail Diabetic polyneuropathy associated with type 2 diabetes mellitus (CMS/HCC) Nontraumatic amputation of foot, right (CMS/HCC) Nontraumatic amputation of foot, left ([facility]/HCC) Acquired keratoderma [facility] Diagnosis Acquired keratoderma- Primary Diabetic polyneuropathy associated with type 2 diabetes mellitus (CMS/HCC) Nontraumatic amputation of foot, left (CMS/HCC) Nontraumatic amputation of foot, right ([facility]/HCC) [facility]* Diagnosis Type 2 diabetes mellitus with diabetic polyneuropathy, without long-term current use of insulin ([facility]/HCC)- Primary Acquired hallux malleus of left foot Acquired hammer toes of both feet Foot callus Corns and callosities 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, left ([facility]/HCC) Venous stasis dermatitis of both lower extremities Type 2 diabetes mellitus with diabetic microalbuminuria, without long-term current use of insulin ([facility]/HCC) Microalbuminuria Proteinuria Essential hypertension ([facility]/HCC) Unspecified essential hypertension Mixed hyperlipidemia ([facility]/HCC) Mixed hyperlipidemia Adverse reaction to statin medication Former smoker Personal history of tobacco use, presenting hazards to health Morbid obesity ([facility]) Morbid obesity [facility]* Diagnosis Diabetic polyneuropathy associated with type 2 diabetes mellitus (CMS/HCC)- Primary Nontraumatic amputation of foot, left (CMS/HCC) Nontraumatic amputation of foot, right (CMS/HCC) [facility] Diagnosis Diabetic polyneuropathy associated with type 2 diabetes mellitus (CMS/HCC)- Primary Nontraumatic amputation of foot, left ([facility]/HCC) Nontraumatic amputation of foot, right ([facility]) documented in this encounter [facility]* Diagnosis Dyspepsia Dyspepsia and other specified disorders of function of stomach documented in this encounter [facility]* Diagnosis Polycythemia- Primary Polycythemia vera documented in this encounter [facility] Diagnosis Encounter for Medicare annual wellness exam- Primary Advance directive in chart Encounter for screening for other disorder Screening for alcohol problem Screening for alcoholism Morbid (severe) obesity due to excess calories ([facility]) BMI 39.0-39.9,adult Type 2 diabetes mellitus with diabetic polyneuropathy, without long-term current use of insulin ([facility]) Type 2 diabetes mellitus with diabetic microalbuminuria, without long-term current use of insulin ([facility]) Type 2 diabetes mellitus with foot ulcer (CODE) ([facility]) Non-pressure chronic ulcer of other part of unspecified foot with unspecified severity ([facility]) Partial nontraumatic amputation of right foot ([facility]) Partial nontraumatic amputation of foot, left ([facility]) Atherosclerosis of [place] coronary artery of [place] heart without angina pectoris ([facility]) History of myocardial infarction ([facility]) Mixed hyperlipidemia ([facility]) Mixed hyperlipidemia Adverse reaction to statin medication Primary open angle glaucoma of both eyes, unspecified glaucoma stage ([facility]) documented in this encounter [facility]* Diagnosis Dyspepsia Dyspepsia and other specified disorders of function of stomach Essential hypertension ([facility]) Unspecified essential hypertension Microalbuminuria Proteinuria Mixed hyperlipidemia ([facility]) Mixed hyperlipidemia Type 2 diabetes mellitus with diabetic microalbuminuria, without long-term current use of insulin ([facility]) Type 2 diabetes mellitus with diabetic polyneuropathy, without long-term current use of insulin ([facility]) documented in this encounter [facility]* Diagnosis Essential hypertension ([facility])- Primary Unspecified essential hypertension Microalbuminuria Proteinuria Type 2 diabetes mellitus with diabetic microalbuminuria, without long-term current use of insulin ([facility]) Type 2 diabetes mellitus with diabetic polyneuropathy, without long-term current use of insulin ([facility]) Mixed hyperlipidemia ([facility]) Mixed hyperlipidemia Adverse reaction to statin medication documented [facility] encounter [facility]* Diagnosis Lumbar paraspinal muscle spasm Other symptoms referable to back Dyspepsia Dyspepsia and other specified disorders of function of stomach Type 2 diabetes mellitus with diabetic polyneuropathy, without long-term current use of insulin ([facility]) [facility] Diagnosis Lumbar paraspinal muscle spasm Other symptoms referable to back [facility] Narrative No data available for this section [facility] Hospital Discharge instructions No data available for this section [facility] progress note No data available for this section [facility] Summary Purpose Family History No Family [...] Documents on File Type Date Recorded Patient [facility] Psychiatrist Expl anation Advance Directives and Livin g Will Advance Directives and Livin g Will 08/31/2013 9:46 AM Power of Chisel Grinder Power of Chisel Grinder 08/31/2013 9:46 AM Latest Code Status on File Code Status Date Activated Date Inactivated Comments Full Code 08/06/2016 9:06 AM 08/09/2016 5:53 PM Full Code 08/04/2016 9:28 PM 08/06/2016 9:06 AM Full Code 05/15/2015 12:42 PM 05/19/2015 6:52 PM Full Code 05/12/2015 11:22 AM 05/15/2015 12:42 PM Full Code 05/13/2014 2:36 PM 05/13/2014 9:20 PM Documents on File Type Date Recorded Patient Loc[facility] Psychiatrist Expl anation ACP-Advance Directive ACP-Power of Chisel Grinder ACP-Advance Directive 08/31/2013 9:46 AM ACP-Power of Chisel Grinder 08/31/2013 9:46 AM Documents on File Type Date Recorded Patient [facility] Psychiatrist Expl anation ACP-Advance Directive 08/31/2013 9:46 AM ACP-Power of Chisel Grinder 08/31/2013 9:46 AM Latest Code Status on [...] Documents on File Type Date Recorded Patient [facility] Psychiatrist Expl anation Advance Directives and Living Will 11/20/2019 2018-05-09 Living Wi ll Advance Directives and Living Will 11/20/2019 2018-05-09 Power Of Chisel Grinder Documents on File Type Date Recorded Patient [facility] Psychiatrist Expl anation ACP-Power of Chisel Grinder 08/31/2013 9:46 AM ACP-Advance Directive 08/31/2013 9:46 [...] section and content) DATE CREATED AUTHOR 11/24/2017 [facility] DATE CREATED AUTHOR AUTHOR'S ORGANIZ ATION 03/15/2018 [facility] DATE CREATED AUTHOR AUTHOR'S ORGANIZ ATION 07/01/2021 [facility] DATE CREATED AUTHOR AUTHOR'S ORGANIZ ATION 09/26/2021 [facility] dical Specialist DATE CREATED AUTHOR AUTHOR'S ORGANIZ ATION 11/13/2022 [facility] DATE CREATED AUTHOR AUTHOR'S ORGANIZ ATION 06/03/2024 [facility] DATE CREATED AUTHOR AUTHOR'S ORGANIZ ATION 07/07/2024 [facility] DATE CREATED AUTHOR AUTHOR'S ORGANIZ ATION 07/17/2024 [facility] DATE CREATED AUTHOR AUTHOR'S ORGANIZ ATION 09/14/2024 [facility] DATE CREATED AUTHOR AUTHOR'S ORGANIZ ATION 09/19/2024 [facility] dical Specialists EPIC DATE CREATED AUTHOR AUTHOR'S ORGANIZ ATION 10/13/2024 Pathology Gabriel welch [facility] Care Team (unrecognized sect ion and content) Contact Lens Molder Relationship Specialty Start Date End Date Jordan Duncan MD PCP - General 07/25/19 Contact Lens Molder Relationship Specialty Start Date End Date Jordan Duncan MD [address] [place] [address] PCP - General Family Medicine 10/25/22 Mitch Mello MD [address] [place] [address] Referring Physician Cardiology 05/17/23 Jr. Anuja Henson DO [address] [address] Referring Physician Orthopaedic Surgery 05/17/23 Brody Ibrahim DPM [address] [place] [address] Referring Physician Podiatry 05/17/23 Contact Lens Molder Relationship Specialty Start Date End Date Jordan Duncan MD [address] [place] [address] PCP - General Family Medicine 10/25/22 Mitch Mello MD [address] [place] [address] Referring Physician Cardiology 05/17/23 Jr. Anuja Henson DO [address] [place] [address] Referring Physician Orthopaedic Surgery 05/17/23 Brody Ibrahim DPM [address] [place] [address] Referring Physician Podiatry 05/17/23 Contact Lens Molder Relationship Specialty Start Date End Date Jordan Duncan MD [address] [place] [address] (Fax) PCP - General Family Medicine 10/25/22 Jordan Duncan MD [address] [place] [address] (Fax) PCP - ACO Reach 08/05/23 Mitch Mello MD [address] [place] [address] Referring Physician Cardiology 05/17/23 Jr. Anuja Henson DO [address] [address] Referring Physician Orthopaedic Surgery 05/17/23 Brody Ibrahim DPM [facility] [place] [address] Referring Physician Podiatry 05/17/23 Contact Lens Molder Relationship Specialty Start Date End Date Jordan Duncan MD [address] [place] [address] (Fax) PCP - General Family Medicine 10/25/22 Jordan Duncan MD [address] [place] [address] (Fax) PCP - ACO Reach 08/05/23 Mitch Mello MD [address] [place] [address] Referring Physician Cardiology 05/17/23 Jr. Anuja Henson DO [address] [address] Referring Physician Orthopaedic Surgery 05/17/23 Brody Ibrahim DPM [address] [facility] [place] [address] Referring Physician Podiatry 05/17/23 Contact Lens Molder Relationship Specialty Start Date End Date Jordan Duncan MD [address] [place] [phone] (Fax) PCP - General Family Medicine 10/25/22 Jordan Duncan MD [address] [place] [phone] (Fax) PCP - ACO Reach 08/05/23 Mitch Mello MD [address] [place] [address] Referring Physician Cardiology 05/17/23 Jr. Anuja Henson DO [address] [place] [address] Referring Physician Orthopaedic Surgery 05/17/23 Brody Ibrahim DPM [address] [place] [address] Referring Physician Podiatry 05/17/23 Contact Lens Molder Relationship Specialty Start Date End Date Joradn Duncan MD [address] [place] [address] (Fax) PCP - General Family Medicine 10/25/22 Jordan Duncan MD [address] [place] [address] (Fax) PCP - ACO Reach 08/05/23 Mitch Mello MD [address] [place] [address] Referring Physician Cardiology 05/17/23 Jr. Anuja Henson, [address] [facility] [address] [place] [address] Referring Physician Orthopaedic Surgery 05/17/23 Brody Ibrahim DPM [address] [place] [address] Referring Physician Podiatry 05/17/23 Contact Lens Molder Relationship Specialty Start Date End Date Jordan Duncan MD [address] [place] [address] (Fax) PCP - General Family Medicine 10/25/22 Jordan Duncan MD [address] [place] [address] (Fax) PCP - ACO Reach 08/05/23 Mitch Mello MD [address] [place] [address] Referring Physician Cardiology 05/17/23 Jr. Anuja Henson, [address] [address] Referring Physician Orthopaedic Surgery 05/17/23 Brody Ibrahim DPM [address] [place] [address] Referring Physician Podiatry 05/17/23 Contact Lens Molder Relationship Specialty Start Date End Date Jordan Duncan MD [address] [place] [address] (Fax) PCP - General Family Medicine 10/25/22 Jordan Duncan MD [address] [place] [address] (Fax) PCP - ACO Reach 08/05/23 Mitch Mello MD [address] [place] [address] Referring Physician Cardiology 05/17/23 Jr. Anuja Henson DO [address] [facility] [address] [place] [address] Referring Physician Orthopaedic Surgery 05/17/23 Brody Ibrahim DPM [address] [place] [address] Referring Physician Podiatry 05/17/23 Contact Lens Molder Relationship Specialty Start Date End Date Jordan Duncan MD [address] [place] [address] (Fax) PCP - General Family Medicine 10/25/22 Jordan Duncan MD [address] [place] [address] (Fax) PCP - ACO Reach 08/05/23 Mitch Mello MD [address] [place] [address] Referring Physician Cardiology 05/17/23 Jr. Anuja Henson DO [address] [place] [address] Referring Physician Orthopaedic Surgery 05/17/23 Brody Ibrahim DPM [address] [place] [address] Referring Physician Podiatry 05/17/23 Contact Lens Molder Relationship Specialty Start Date End Date Jordan Duncan MD [address] [place] [address] (Fax) PCP - General Family Medicine 10/25/22 Jordan Duncan MD [address] [place] [address] (Fax) PCP - ACO Reach 08/05/23 Mitch Mello MD [address] [place] [address] Referring Physician Cardiology 05/17/23 Jr. Anuja Henson DO [address] [facility] 150 [place] [address] Referring Physician Orthopaedic Surgery 05/17/23 Brody Ibrahim DPM [address] [address] Referring Physician Podiatry 05/17/23 Contact Lens Molder Relationship Specialty Start Date End Date Jordan Duncan MD [address] [place] [address] (Fax) PCP - General Family Medicine 10/25/22 Jordan Duncan MD [address] [place] [address] (Fax) PCP - ACO Reach 08/05/23 Mitch Mello MD [address] [place] [address] Referring Physician Cardiology 05/17/23 Jr. Anuja Henson DO [address] [place] [address] Referring Physician Orthopaedic Surgery 05/17/23 Brody Ibrahim DPM [address] [place] [address] Referring Physician Podiatry 05/17/23 Contact Lens Molder Relationship Specialty Start Date End Date Jordan Duncan MD [address] [place] [address] (Fax) PCP - General Family Medicine 10/25/22 Jordan Duncan MD [address] [place] [address] (Fax) PCP - ACO Reach 08/05/23 Mitch Mello MD [address] [place] [address] Referring Physician Cardiology 05/17/23 Jr. Anuja Henson, [address] [place] [address] Referring Physician Orthopaedic Surgery 05/17/23 Brody Ibrahim DPM [address] [place] [address] Referring Physician Podiatry 05/17/23 Contact Lens Molder Relationship Specialty Start Date End Date Jordan Duncan MD [address] [place] [address] (Fax) PCP - General Family Medicine 10/25/22 Jordan Duncan MD [address] [facility] 100 [place] [address] (Fax) PCP - ACO Reach 08/05/23 Mitch Mello MD [address] [place] [address] Referring Physician Cardiology 05/17/23 Jr. Anuja Henson DO [address] [facility] 150 [place] [address] Referring Physician Orthopaedic Surgery 05/17/23 Brody Ibrahim DPM [address] [place] [address] Referring Physician Podiatry 05/17/23 Contact Lens Molder Relationship Specialty Start Date End Date Jordan Duncan MD (Fax) PCP - General 07/25/19 Contact Lens Molder Relationship Specialty Start Date End Date Jordan Duncan MD 112 [facility] 100 [place] [address] (Fax) PCP - General Family Medicine 10/25/22 Jordan Duncan MD [address] [facility] 100 [place] [address] (Fax) PCP - ACO Reach 08/05/23 Mitch Mello MD [address] [place] [address] Referring Physician Cardiology 05/17/23 Jr. Anuja Henson DO [address] [place] [address] Referring Physician Orthopaedic Surgery 05/17/23 Brody Ibrahim DPM [address] [place] [address] Referring Physician Podiatry 05/17/23 Contact Lens Molder Relationship Specialty Start Date End Date Jordan Duncan MD [address] [place] [address] PCP - General Family Medicine 10/25/22 Jordan Duncan MD [address] [place] [address] PCP - ACO Reach 08/05/23 Jr. Anuja Henson DO [address] [facility] 150 [place] [address] Referring Physician Orthopaedic Surgery 05/17/23 Brody Ibrahim DPM [address] [place] [address] Referring Physician Podiatry 05/17/23 Anuja Huddleston MD [address] [place] [phone] Referring Physician Family Medicine 07/25/24 Topher Saavedra MD [address] [place] [phone] Referring Physician Urology 07/25/24 Kitty Edmond OD [address] [place] [address] [place] [address] Referring Physician Optometry 07/25/24 Contact Lens Molder Relationship Specialty Start Date End Date Jordan Duncan MD [address] [place] [address] (Fax) PCP - General Family Medicine 10/25/22 Jordan Duncan MD [address] [place] [address] (Fax) PCP - ACO Reach 08/05/23 Jr. Anuja Henson DO [address] [place] [address] Referring Physician Orthopaedic Surgery 05/17/23 Brody Ibrahim DPM 1900 [facility] [place] [address] Referring Physician Podiatry 05/17/23 Anuja Huddleston MD [address] [place] [phone] Referring Physician Family Medicine 07/25/24 Topher Saavedra MD [address] [place] [address] Referring Physician Urology 07/25/24 Kitty Edmond OD [address] [facility] [place] [address] Referring Physician Optometry 07/25/24 Contact Lens Molder Relationship Specialty Start Date End Date Jordan Duncan MD [address] [place] [address] (Fax) PCP - General Family Medicine 10/25/22 Jordan Duncan MD [address] [place] [address] (Fax) PCP - ACO Reach 08/05/23 Jr. Anuja Henson DO [address] [place] [address] Referring Physician Orthopaedic Surgery 05/17/23 Brody Ibrahim DPM [address] [facility] [place] [address] Referring Physician Podiatry 05/17/23 Anuja Huddleston MD [address] [place] [phone] Referring Physician Family Medicine 07/25/24 Topher Saavedra MD [address] [place] [address] Referring Physician Urology 07/25/24 Kitty Edmond OD [address] [place] [address] Referring Physician Optometry 07/25/24 Contact Lens Molder Relationship Specialty Start Date End Date Jordan Duncan MD [address] [place] [address] (Fax) PCP - General Family Medicine 10/25/22 Jordan Duncan MD [address] [place] [address] (Fax) PCP - ACO Reach 08/05/23 Jr. Anuja Henson DO [address] [place] [address] Referring Physician Orthopaedic Surgery 05/17/23 Brody Ibrahim DPM [address] [place] [address] Referring Physician Podiatry 05/17/23 [place] [address] [place] [phone] Referring Physician Family Medicine 07/25/24 Topher Saavedra MD [address] [place] [address] Referring Physician Urology 07/25/24 Kitty Edmond OD [address] [place] [address] Referring Physician Optometry 07/25/24 Contact Lens Molder Relationship Specialty Start Date End Date Jordan Duncan MD [address] [place] [address] PCP - General Family Medicine 10/25/22 Jordan Duncan MD [address] [place] [address] PCP - ACO Reach 08/05/23 Jr. Anuja Henson DO [address] [place] [address] Referring Physician Orthopaedic Surgery 05/17/23 Brody Ibrahim DPM [address] [place] [address] Referring Physician Podiatry 05/17/23 Anuja Huddleston MD [address] [place] [phone] (Fax) Referring Physician Family Medicine 07/25/24 Topher Saavedra MD [address] [phone] Referring Physician Urology 07/25/24 Kitty Edmond OD [address] [place] [address] [place] [address] Referring Physician Optometry 07/25/24 Contact Lens Molder Relationship Specialty Start Date End Date Jordan Duncan MD [address] [place] [address] (Fax) PCP - General Family Medicine 10/25/22 Jordan Duncan MD [address] [place] [address] (Fax) PCP - ACO Reach 08/05/23 Jr. Anuja Henson DO [address] [place] [address] Referring Physician Orthopaedic Surgery 05/17/23 Brody Ibrahim DPM 1900 [facility] [place] [address] Referring Physician Podiatry 05/17/23 Anuja Huddleston MD [address] [place] [phone] (Fax) Referring Physician Family Medicine 07/25/24 Topher Saavedra MD [address] [phone] Referring Physician Urology 07/25/24 Kitty Edmond OD [facility] [place] [address] Referring Physician Optometry 07/25/24 Reason for Visit [...] PCP: Dr. Dakota YARBROUGH 10/27/23, A1C: 6.3 (5/), BS: 132 SS: 14 Reason Comments Hypertension Hyperlipidemia Diabetes Reason Comments Shoe Measure Juan Miguel Jennings is a 74 y.o. male who presents for Foot Callouses. PCP: Dr. 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 male who presents for Foot Callouses. PCP: Dr. Dakota YARBROUGH 03/27/24, A1C: 6.4 (5/), BS: 132 SS: 14. Reason Comments Diabetic shoe check Juan Miguel Jennings is a 74 y.o. male who presents diabetic shoe check. PCP: Dr. Duncan 03/27/24, A1C: 6.4 (5/), BS: 132 SS: 14. Reason Comments Annual [...] BE BASED ON THE PRIMARY CLINICAL RECORDS. [facility] [employer] provides no warranty or guarantee of the accuracy or completeness of information in this document.
--- OUTSIDE RECORDS SUMMARY | 2024-12-26 07:58 | XMS_ITS | Clinical Summary ---
Author Organization [facility] Address [address] [place] [address] Care Team Providers Care Patient Financial Specialist Name Role Phone Jordan Wong MD Primary Care Provider [phone] Allergies Active Allergy Reactions Criticality Noted Date [...] mouth twice a day. Active evolocumab (Repatha SureCompaick) 140 mg/mL pen injectorIndicatio ns:Hyperlipidemia , unspecified hyperlipidemia type Inject 1 Pen under the skin every 14 (fourteen) days. 6 mL 3 05/25/20 23 Active metoprolol tartrate (Lopressor) 100 mg tabletIndications :Palpitations Take 100 mg in am and 50 mg in pm every day 135 tablet 3 05/26/20 23 Active famotidine (Pepcid) 20 mg tablet Take 20 mg by mouth twice a day. 12/13/19 24 Active diclofenac (Voltaren) 75 mg EC tablet if needed. 06/20/19 Active tamsulosin (Flomax) 0.4 mg 24 hr capsule Take 0.4 mg by mouth twice a day. 01/11/20 24 Active isosorbide mononitrate ER (Imdur) 30 mg 24 hr tabletIndications :Benign hypertensive heart disease without congestive heart failure Take 1 tablet (30 mg) by mouth once daily as directed. Do not crush or chew. 90 tablet 3 06/08/19 25 2025 Active amLODIPine (Norvasc) 5 mg tabletIndications :Benign hypertensive heart disease without congestive heart failure Take 1 tablet (5 mg) by mouth once daily as directed. 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 with unspecified severity 01/11/2023 04/08/2023 Nocturia 01/11/2023 04/08/2023 Urinary urgency 01/11/2023 04/08/2023 Urinary frequency 01/11/2023 04/08/2023 Polyneuropathy due to type 2 diabetes mellitus 0 08/17/2021 04/08/2023 Status post total left knee replacement 06/03/2004/08/2023 Difficulty walking 05/26/2021 04/08/2023 Presence of both artificial knee joints 12/20/20 21 Decreased testosterone level 05/11/202108/2022 Dependence on other [...] controlled- f/u with PCP Old myocardial infarction 02/09/2018 11/03/ 2023 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 Former smoker 07/13/2017 [...] Encounters Date Type Department Care Team Description 12/21/2024 11:20 AM EDT Office Visit [address] [phone] Surya Gleason CNP Pre-op evaluation (Primary Dx); Coronary artery disease involving [place] coronary artery of [place] heart without angina pectoris; History of myocardial infarction; Primary hypertension; Mixed hyperlipidemia; Statin intolerance from Last 3 Months Immunizations Immunization Administration Dates Next Due Influenza, High Dose Seasona l, Preservative Free 03/05/2019,03/03/2018 Influenza, Seasonal, Quadriv alent, Adjuvanted 05/06/2021,03/22/2020 Influenza, Unspecified 03/06/2016 Influenza, injectable, quadr ivalent, preservative free 04/06/2017,01/23/2016 Influenza, seasonal, injectable 03/23/2014,04/06 Novel [id number], preservative-free 04/21 Pneumococcal Conjugate PCV 13 03/03/2018 [...] Heterosexual or Straight 02/2025 1:25 PM EDT Last Filed Vital Signs Vital Sign Reading [...] Mass Index 40.56 12/21/2024 10:35 AM EDT Plan of Treatment Health Maintenance Due Date Last Done Comments CT Colonography 1950 FIT-DNA 1950 FIT 1950 FOBT 1950 Medicare Annual Wellness (AWV) 1950 Sigmoidoscopy 1950 Diabetes: Retinopathy Screening 02/10/1962 Depression Screening 1964 Adult Tetanus 02/10/1974 Zoster Vaccines (1 of 2) 02/10/2002 12/04/2016, 11/0 06/2012 Fall Risk Screening 02/10/2017 COVID-19 Vaccine ( season) 2024 03/23/2022, 03/23/2022, 03/23/2022, Additional history exists Diabetes: Hemoglobin A1C 12/12/2024 025, 03/21/2024, 04/13/2023 Influenza Vaccine (#1) 2025 4, 02/28/2023, 04/16/2022, Additional history exists Colonoscopy 12/17/2030 12/17/2020 Colorectal Cancer Screening 12/17/2030 Pneumococcal Vaccine: 50+ Years Completed 03/06/2019, 03/05/2019, 03/03/2018, Additional history exists HIB Vaccines Aged Out [...] Routine 12/21/2024 10:36 AM EDT Pre-op evaluation from Last 3 Months Results * ECG 12 lead unit performed (12/21/2024 10:36 AM EDT) Surya Gleason CNP ECG ORDERABLES Final Result from Last 3 Months Insurance MEDICARE A[employer] Care Teams Patient Financial Specialist Relationship Specialty Start Date End Date Jordan Wong MD [address] [place] [address] PCP - General 03/23/22
--- OUTSIDE RECORDS SUMMARY | 2024-12-26 07:58 | XMS_ITS | Encounter Summary ---
Author Organization [facility] Address [address] [place] [address] Care Team Providers Care Shellfish Farming Supervisor Name Role Phone Jordan Wong MD Primary Care Provider Jr. Julio Henson DO Unavailable [phone] Alberto Ibrahim DPM Unavailable Jordan Wong MD Unavailable Julio Huddleston MD Unavailable [phone] Hudson Stevenson MD Unavailable Kitty Edmond OD Unavailable Korin Kraft RN Unavailable Reason for Visit * Reason Onset Date Comments Care Coordination 12/24/2024 Encounter Details Date Type Department Care Team (Late st Contact Info) Description 12/24/2024 Telephone [facility] [address] [place] [phone] Jordan Wong MD [address] [facility] [address] [place] [address] Care Coordination Social History Tobacco Use Types Packs/Day Years [...] encounter Miscellaneous Notes * Telephone Encounter - Laisha Castaneda - 12/24/2024 4:06 PM EDT Patient notified * Telephone Encounter - Jordan Wong MD - 12/24/2024 11:16 AM EDT Let him know I sent this to [facility]. We have not prescribed since 2022. * Telephone Encounter - Pamella Sam MA - 12/24/2024 11:00 AM EDT EH I cannot see this in his med list. He told Miesha he takes it every day and she found it in his list? From what I could see it has not been rx since 2022. * Telephone Encounter - Laisha Castaneda - 12/24/2024 10:45 AM EDT Bret called requesting a refill on the diclofenac (Voltaren) 75 MG EC tablet He states he has beenout for about 10 days and is miserable. Please send to [facility] in [place]. documented in this encounter Plan of Treatment Not on file documented as of this encounter Visit Diagnoses Diagnosis Chronic pain syndrome- Primary documented in this encounter Additional Health Concerns Assessment Noted Time PHQ-9 Depression Total Score: 2 07/25/19 25 9:00 AM EST documented as of this encounter Care Teams Shellfish Farming Supervisor Relationship Specialty Start Date End Date Jordan Wong MD [address] [place] [address] PCP - General Family Medicine 10/25/22 Jordan Wong MD [address] [place] [address] PCP - ACO Reach 08/05/23 Jr. Jluio Henson DO [address] [place] [address] Referring Physician Orthopaedic Surgery 05/17/23 Alberto Ibrahim DPM [address] [place] [address] Referring Physician Podiatry 05/17/23 Julio Huddleston MD [address] [place] [phone] Referring Physician Family Medicine 07/25/24 Hudson Stevenson MD [address] [place] [address] Referring Physician Urology 07/25/24 Kitty Edmond OD [address] [facility] [place] [address] Referring Physician Optometry 07/25/24 Korin Kraft, ARUN [address] [place] [address] Registered Nurse Family Medicine 12/24/24 documented as of this encounter
--- OUTSIDE RECORDS SUMMARY | 2024-12-26 07:58 | XMS_ITS | Encounter Summary ---
Author Organization [facility] Address [address] [place] [address] Care Team Providers Care Digital Account Coordinator Name Role Phone Jordan Wong MD Primary Care Provider Mitch Mello MD Unavailable [phone] Jr. Julio Henson DO Unavailable [phone] Alberto Ibrahim DPM Unavailable [phone] Jordan Wong MD Unavailable [phone] Julio Huddleston MD Unavailable Hudson Stevenson MD Unavailable [phone] Kitty Edmond OD Unavailable Korin Kraft RN [...] Name Priority Date/Time Associated Diagnosis Comments NM ZAINAB PERF SPECT REST STR 05/18/2024 10:06 AM EST documented in this encounter Results * NM ZAINAB PERF SPECT REST STR (05/18/2024 10:06 AM EST) Anatomical Region Laterality Modality Other 05/18/2024 10:0 6 AM EST Narrative 05/18/2024 10:07 [place] [address] Nuclear Medicine Report Signed Patient: JUAN MIGUEL JENNINGS MR#: [id number] : 1950 Acct:[id number] Age/Sex: 74 / M ADM Date: 05/17/24 Loc: CARD Attending Dr: PAUL WEN APRN Ordering Physician: PAUL WEN APRN Date of Service: 05/17/24 Procedure(s): NM zainab perf SPECT rest str Accession Number(s): [id number] cc: JORDAN WONG ; PAUL WEN APRN Patient Name: JUAN MIGUEL JENNINGS MR#: [id number] : 1950 Exam Date: 05/17/2024 Ordering Doctor: PAUL WEN CNP RADIOLOGY REPORT PROCEDURE: NM ZAINAB PERF SPECT REST STR COMPARISON: None. INDICATIONS: [...] LOCATION: Mid-anterior. Mid-inferior. Apical anterior. Apical inferior. [place]. SIZE: Large (5 or more segments). SEVERITY: [...] Signed By: 05/18/24 1007 DD/ 1006 TD/TT: Forger Helper: Procedure Note Radiology, Radiologist, - 05/18/2024 [place] [address] Nuclear Medicine Report Signed Patient: JUAN MIGUEL JENNINGS JMR#: [id number] : 1950cct:[id number] Age/Sex: 74 / MADM Date: 05/17/24 Loc: CARD Attending Dr: PAUL WEN APRN Ordering Physician: PAUL WEN APRN Date of Service: 05/17/24 Procedure(s): NM zainab perf SPECT rest str Accession Number(s): [id number] cc: JORDAN WONG ; PAUL WEN APRN Patient Name: JUAN MIGUEL JENNINGS MR#: [id number] : 1950 Exam Date: 05/17/2024 Ordering Doctor: PAUL WEN [facility] RADIOLOGY REPORT PROCEDURE: NM ZAINAB PERF SPECT REST STR COMPARISON: None. INDICATIONS: [...] LOCATION: Mid-anterior. Mid-inferior. Apical anterior. Apical inferior. [place]. SIZE: Large (5 or more segments). SEVERITY: [...] M.D. Signed By:05/18/24 1007 DD/ 1006 TD/TT: Forger Helper: us Generic External Data Provider [facility] Final Result documented in this encounter Visit Diagnoses Not on filedocumented in this encounter Additional Health Concerns Assessment Noted Time PHQ-9 Depression Total Score: 0 05/17/20 23 9:00 AM EST documented as of this encounter Care Teams Digital Account Coordinator Relationship Specialty Start Date End Date Jordan Wong MD [address] [place] [address] PCP - General Family Medicine 10/25/22 Jordan Wong MD [address] [place] [address] PCP - ACO Reach 08/05/23 Mitch Mello MD [address] [place] [address] Referring Physician Cardiology 05/17/23 07/24/24 Jr. Julio Henson DO [address] [place] [address] Referring Physician Orthopaedic Surgery 05/17/23 Alberto Ibrahim DPM [address] [place] [address] Referring Physician Podiatry 05/17/23 Julio Huddleston MD [address] [place] [address] Referring Physician Family Medicine 07/25/24 Hudson Stevenson MD [address] [place], [place] [phone] Referring Physician Urology 07/25/24 Kitty Edmond OD [address] [place] [address] Referring Physician Optometry 07/25/24 Korin Kraft, ARUN [address] [place] [address] Registered Nurse Family Medicine 12/24/24 documented as of this encounter
--- OUTSIDE RECORDS SUMMARY | 2024-12-26 07:58 | XMS_ITS | Encounter Summary ---
Author Organization [facility] Address [address] [place] [address] Care Team Providers Care Milking Machine Operator Name Role Phone Jordan Wong MD Primary Care Provider [phone] Mitch Mello MD Unavailable [phone] Jr. Julio Henson DO Unavailable [phone] Alberto Ibrahim DPM Unavailable [phone] Jordan Wong MD Unavailable [phone] Julio Huddleston MD Unavailable Hudson Stevenson MD [...] PM EST Narrative 05/22/2024 5:07 [place] [address] Cardiology Report Signed Patient: JUAN MIGUEL JNENINGS MR#: [id number] : 1950 Acct:[id number] Age/Sex: 74 / M ADM Date: 05/22/24 Loc: CARD Attending Dr: PAUL WEN APRN Ordering Physician: PAUL WEN APRN Date of Service: 05/22/24 Procedure(s): CA echo doppler complete Accession Number(s): [id number] cc: JORDAN WONG MELINDA APRN Patient Name: JUAN MIGUEL JENNINGS MR#: [id number] : 1950 Exam Date: 05/22/2024 Ordering Doctor: [...] M.D. Signed By: 05/22/241706 DD/ 05 TD/TT: Shipping/Receiving Clerk: Procedure Note Radiology, Radiologist, MD - 05/22/2024 [place] [address] Cardiology Report Signed Patient: JUAN MIGUEL JENNINGS R#: [id number] : 1950cct:[id number] Age/Sex: 74 / MADM Date: 05/22/24 Loc: CARD Attending Dr: PAUL WEN APRN Ordering Physician: PAUL WEN APRN Date of Service: 05/22/24 Procedure(s): CA echo doppler complete Accession Number(s): [id number] cc: JORDAN WONG ; PAUL WEN APRN Patient Name: JUAN MIGUEL JENNINGS MR#: [id number] : 1950 Exam Date: 05/22/2024 Ordering Doctor: PAUL WEN [employer] ECHOCARDIOGRAM REPORT PROCEDURE: CA ECHO DOPPLER COMPLETE [...] Diego M.D. Signed By:05/22/241706 DD/ 05 TD/TT: Shipping/Receiving Clerk: [facility] External Data Provider [facility] IMAGING Final Result * (ABNORMAL) ALL TESTOSTERONE (05/22/2024 8:39 AM EST) [facility] TESTOSTERONE 91(A) 264 - 916 ng/dL [facility] Comment: Adult male reference interval is based on a population of healthy nonobese males (BMI <30) between 19 and 39 years old. Lonnie et.al. JCEM 2017,102;9702-5998. PMID: [id number]. Performed at: [address], [place], [place] [id number] Multimedia Production Assistant: Zeke Almaguer PhD, Phone: [phone] 05/22/2024 8:39 AM EST 05/22/2024 8:40 AM EST Narrative CLINISYNC - 05/23/2024 11:08 AM EST us Generic External Data Provider [facility]IN[facility] F inal Result JONN [facility] documented in this encounter Visit Diagnoses Not on filedocumented in this encounter Additional Health Concerns Assessment Noted Time PHQ-9 Depression Total Score: 0 05/17/20 9:00 AM EST documented as of this encounter Care Teams Milking Machine Operator Relationship Specialty Start Date End Date Jordan Wong MD 112 [facility] 100 [place] [address] PCP - General Family Medicine 10/25/22 Jordan Wong MD 112 [facility] 100 [place] [address] PCP - ACO Reach 08/05/23 Mitch Mello MD [address] [place] [address] Referring Physician Cardiology 05/17/23 07/24/24 Jr. Julio Henson DO 112 [facility] 150 [place] [address] Referring Physician Orthopaedic Surgery 05/17/23 Alberto Ibrahim DPM [address] [place], [place] [address] Referring Physician Podiatry 05/17/23 Julio Huddleston MD [address] [place] [phone] Referring Physician Family Medicine 07/25/24 Hudson Stevenson MD [address] [place] [address] Referring Physician Urology 07/25/24 Kitty Edmond OD [address] [place] [address] Referring Physician Optometry 07/25/24 Korin Kraft, ARUN [address] [place] [address] Registered Nurse Family Medicine 12/24/24 documented as of this encounter
--- OUTSIDE RECORDS SUMMARY | 2024-12-26 07:58 | XMS_ITS ---
Author Organization [facility] Address [address] [facility] [place] [address] Care Team Providers Care Drill Press Tender Name Role Phone Jordan Wong MD Primary Care Provider Jr. Julio Henson DO Unavailable [phone] Alberto Ibrahim DPM Unavailable [phone] Jordan Wong MD Unavailable [phone] Julio Huddleston MD Unavailable [phone] Hudson Stevenson MD Unavailable [phone] Kitty Edmond OD Unavailable Korin Kraft RN Unavailable [phone] Chronic Care Management (CCM) Status:Identified (Enrolling) Start date:12/24/2024 Enrollment reason:Identified by Health Plan Overview Please assess for Care Management needs. Case Team Name Relationship Phone Korin Kraft RN(Responsible Staff) Luiz cisneros Nurse [phone] Continued Care and Services Coordination
--- OUTSIDE RECORDS SUMMARY | 2024-12-26 07:58 | XMS_ITS | Clinical Summary ---
Author Organization [facility] Address [address] [place] [address] Care Team Providers Care Ski Patrol Name Role Phone Jordan Wong MD Primary Care Provider [phone] Jr. Julio Henson DO Unavailable Alberto Ibrahim DPM Unavailable Jordan Wong MD Unavailable [phone] Julio Huddleston MD Unavailable [phone] Hudson Stevenson MD Unavailable Kitty Edmond OD Unavailable Korin Kraft RN Unavailable [phone] Allergies Active Allergy Reactions Criticality Noted Date [...] polyneuropathy, without long-term current use of insulin ([facility]) Take 1 tablet (30 mg) [...] PM 135 tablet 09/19/19 25 025 Active famotidine (Pepcid) 20 MG [...] as needed for muscle spasms 270 tablet 12/04/19 25 025 Active diclofenac (Voltaren) 75 MG EC tabletIndication s:Chronic pain syndrome Take 1 tablet (75 mg) by mouth 2 (two) times a day as needed (pain) Do not crush, chew, or split. 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 01/11/2023 Hypogonadism male 01/11/2023 Type 2 diabetes mellitus wit h diabetic microalbuminuria, without long-term current use of insulin 01/11/2023 Presence of both artificial knee joints 05/25/20 Decreased testosterone level 05/11/2021 Dependence on other [...] Encounters Date Type Department Care Team Description 12/24/2024 Telephone [facility] [address] [facility] 100 [place] [address] Jordan Wong MD Care Coordination 12/03/2024 Telephone [facility] [address] [facility] 100 [place] [address] Jordan Wong MD 10/18/2024 Telephone [facility] [address] [facility] 100 [place] [address] Jordan Wong MD from Last 3 Months Immunizations Immunization Administration Dates Next Due Influenza, [id number] 03/06/2016 Influenza, High Dose Seasona l, Preservative Free 03/05/2019,03/03/2018 Influenza, High-dose Seasona l, Quadrivalent, Preservative Free 03/04/2019,03/06/2016 Influenza, Seasonal, Quadriv alent, Adjuvanted 02/28/2023,04/16/2022,05/06/2021,03/22 Influenza, Unspecified 02/28/2023,2021,05/06/2021,03/22,03/05/2019,03/03/2018,04/06/2017 ,03/06/2016,03/06/2016,01/23/2016,03/06,04/06/2013 Influenza, injectable, quadr ivalent, preservative free 04/06/2017,01/23/2016 Influenza, seasonal, injectable 03/28/2024,03/23,04/06/2013 Influenza, trivalent, adjuvanted 03/28/2024 Moderna Bivalent Booster Vaccination 03/23/2022 Moderna SARS-CoV-2 50mcg/0.5mL Booster Novel [id number], preservative-free 04/21/2009 Pfizer Bivalent Booster 12 Y [...] 12/12/2024 025, 03/21/2024, 10/05/2023, Additional history exists Influenza Vaccine (#1) 2025 , 03/28/2024, 02/28/2023, Additional history exists Medicare Annual Wellness (AWV) 07/25/2025 0 07/25/2024, 07/25/2024, 05/17/2023, Additional history exists Diabetes: Urine Protein Screening 09/18/2025 09/18/2024, 11/11/2020, 12/21/2017 Diabetes: Retinopathy Screening 09/29/2025 09/30/2023, 11/25/2021, 11/12/2020, Additional history exists Colonoscopy 12/17/2030 12/17/2020 Colorectal Cancer Screening 12/17/2030 Pneumococcal Vaccine: 65+ Years Completed 03/06/2019, 03/05/2019, 03/04/2019, Additional history exists Procedures Procedure Name Priority Date/Time Associated Diagnosis Comments POCT MICROALBUMIN Routine 09/18/2024 9:3 4 AM EDT Essential hypertension Microalbuminuria Type 2 diabetes mellitus with diabetic microalbuminuria, without long-term current use of insulin (HCC) Type 2 diabetes mellitus with diabetic polyneuropathy, without long-term current use of insulin (HCC) HEMOGLOBIN A1C Routine 09/12/2024 8:26 AM EDT Type 2 diabetes mellitus with diabetic polyneuropathy, without long-term current use of insulin (HCC) DIABETIC RETINOPATHY SCREENING - OU - BOTH EYES Routine 09/30/2023 9:57 AM EDT COLONOSCOPY Routine 12/17/2020 12:00 PM EDT from Last 3 Months or Most Recently Relevant to Health Maintenance Results * (ABNORMAL) POCT microalbumin manually resulted (09/18/2024 9:34 AM EDT) MICROALBUMIN, URINE 150 ALB/CREAT RATIO 300 URINE CREAT 50 Urine 09/18/2024 9:34 AM EDT us Jordan Wong MD POINT OF CARE TEST [...] Performing Organization Information Site ID: [email or web address] Name: [email or web address] Address: [address] [place] [address], [address] [place] [phone] Director: Toan Lara MD Jordan Wong MD LAB BLOOD ORDERABLES Final R esult [facility] * Diabetic Retinopathy Screening - OU - Both Eyes (09/30/2023 9:57 AM EDT) Anatomical Region Laterality Modality Head Other Kitty Edmond OD OPHTH PHOTOGRAPHY Final Result * Colonoscopy (12/17/2020 12:00 PM EDT) Anatomical Region Laterality Modality Endoscopy 12/17/2020 12:0 0 PM EDT Narrative 12/17/2020 12:00 PM EDT PERFORMED AT [facility] LOCATION:[id number] Procedure Note CONVERSION, GENERIC - 10/20/2022 PERFORMED AT [facility] LOCATION:[id number] Jordan Wong MD ENDOSCOPY PROCEDURE ORDERABL ES Final Result from Last 3 Months or Most Recently Relevant to Health Maintenance Insurance [facility]ICARE 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 Julio Henson DO [address] [place] [address] Referring Physician Orthopaedic Surgery 05/17/23 Alberto Ibrahim DPM [address] [place] [address] Referring Physician Podiatry 05/17/23 Julio Huddleston MD [address] [place] [address] Referring Physician Family Medicine 07/25/24 Hudson Stevenson MD [address] [place], [place] [address] Referring Physician Urology 07/25/24 Kitty Edmond OD [address] [place] [address] Referring Physician Optometry 07/25/24 Korin Kraft, ARUN [address] [place] [address] Registered Nurse Family Medicine 12/24/24
--- OUTSIDE RECORDS SUMMARY | 2024-12-26 07:58 | XMS_ITS | Encounter Summary ---
Author Organization [facility] Address [address] [place] [address] Care Team Providers Care Ensemble Member Name Role Phone Jordan Wong MD Primary Care Provider Mitch Mello MD Unavailable Jr. Julio Henson DO Unavailable Alberto Ibrahim DPM Unavailable [phone] Jordan Wong MD Unavailable [phone] Julio Huddleston MD Unavailable [phone] Hudson Stevenson MD Unavailable [phone] Kitty Edmond OD Unavailable Korin Kraft RN Unavailable Encounter Details Date Type Department Care Team (Late st Contact Info) Description 10/25/2023 Orders Only [facility] [address] [place] [address] Newton Stevenson MD [address] [place], [place] [id number] Social History Tobacco Use Types Packs/Day Years [...] documented as of this encounter Care Teams Ensemble Member Relationship Specialty Start Date End Date Jordan Wong MD [address] [place] [address] PCP - General Family Medicine 10/25/22 Jordan Wong MD [address] [place] [address] PCP - ACO Reach 08/05/23 Mitch Mello MD [address] [place] [address] Referring Physician Cardiology 05/17/23 07/24/24 Jr. Julio Henson DO [address] [place] [address] Referring Physician Orthopaedic Surgery 05/17/23 Alberto Ibrahim DPM [address] [place] [address] Referring Physician Podiatry 05/17/23 Julio Huddleston MD [address] [place] [address] Referring Physician Family Medicine 07/25/24 Hudson Stevenson MD [address] [place] [address] Referring Physician Urology 07/25/24 Kitty Edmond OD [facility] [place] [address] Referring Physician Optometry 07/25/24 Korin Kraft, ARUN [address] [place] [address] Registered Nurse Family Medicine 12/24/24 documented as of this encounter
--- OUTSIDE RECORDS SUMMARY | 2024-12-26 07:58 | XMS_ITS | Encounter Summary ---
Author Organization [facility] Address [address] [place] [address] Care Team Providers Care Director Of [employer]ance [employer] Name Role Phone Jordan Wong MD Primary Care Provider [phone] Mitch Mello MD Unavailable [phone] Jr. Julio Henson DO Unavailable Alberto Ibrahim DPM Unavailable [phone] Jordan Wong MD Unavailable [phone] Julio Huddleston MD Unavailable Hudson Stevenson MD Unavailable [phone] Kitty Edmond OD Unavailable Korin Kraft RN Unavailable [phone] Encounter Details Date Type Department Care Team (Late st Contact Info) Description 10/28/2023 Abstract [facility] [address] [place] [address] Jordan Wong MD [address] [address] Social History Tobacco Use Types Packs/Day Years [...] documented as of this encounter Care Teams Director Of [employer] Relationship Specialty Start Date End Date Jordan Wong MD 112 [facility] 100 [place] [address] PCP - General Family Medicine 10/25/22 Jordan Wong MD 112 [facility] 100 [place] [address] PCP - ACO Reach 08/05/23 Mitch Mello MD [address] [place] [address] Referring Physician Cardiology 05/17/23 07/24/24 Jr. Julio Henson DO 112 [facility] 150 [place] [address] Referring Physician Orthopaedic Surgery 05/17/23 Alberto Ibrahim DPM [address] [place], [place] [address] Referring Physician Podiatry 05/17/23 Julio Huddleston MD [address] [place] [address] Referring Physician Family Medicine 07/25/24 Hudson Stevenson MD [address] [phone] Referring Physician Urology 07/25/24 Kitty Edmond OD [address] [facility] [place] [address] Referring Physician Optometry 07/25/24 Korin Kraft, RN [address] [place] [address] Registered Nurse Family Medicine 12/24/24 documented as of this encounter
--- OUTSIDE RECORDS SUMMARY | 2024-12-26 07:58 | XMS_ITS | Encounter Summary ---
Author Organization [facility] Address [address] [place] [address] Care Team Providers Care Command Post Superintendent Name Role Phone Jordan Wong MD Primary Care Provider Mitch Mello MD Unavailable Jr. Julio Henson DO Unavailable [phone] Alberto Ibrahim DPM Unavailable Jordan Wong MD Unavailable Julio Huddleston MD Unavailable [phone] Hudson Stevenson MD Unavailable Kitty Edmond OD Unavailable Korin Kraft RN Unavailable Encounter Details Date Type Department Care Team (Late st Contact Info) Description 09/30/2023 Orders Only [facility] [address] [place] [address] Kitty Edmond, OD [address] [place] [address] Social History Tobacco Use Types Packs/Day Years [...] documented as of this encounter Care Teams Command Post Superintendent Relationship Specialty Start Date End Date Jordan Wong MD [address] [address] PCP - General Family Medicine 10/25/22 Jordan Wong MD [address] [address] PCP - ACO Reach 08/05/23 Mitch Mello MD [address] [place] [address] Referring Physician Cardiology 05/17/23 07/24/24 Jr. Julio Henson DO [address] [facility] 150 [place] [address] Referring Physician Orthopaedic Surgery 05/17/23 Alberto Ibrahim DPM [address] [place] [address] Referring Physician Podiatry 05/17/23 Julio Huddleston MD [address] [place] [address] Referring Physician Family Medicine 07/25/24 Hudson Stevenson MD [address] [place] [address] Referring Physician Urology 07/25/24 Kitty Edmond OD [address] [place] [address] Referring Physician Optometry 07/25/24 Korin Kraft, ARUN [address] [place] [address] Registered Nurse Family Medicine 12/24/24 documented as of this encounter
--- OUTSIDE RECORDS SUMMARY | 2024-12-26 07:58 | XMS_ITS | Encounter Summary ---
Author Organization [facility] Address [address] [place] [address] Care Team Providers Care Driver License Agent Name Role Phone Jordan Wong MD Primary Care Provider Mitch Mello MD Unavailable [phone] Jr. Julio Henson DO Unavailable [phone] Alberto Ibrahim DPM Unavailable Jordan Wong MD Unavailable [phone] Julio Huddleston MD Unavailable Hudson Stevenson MD Unavailable Kitty Edmond OD Unavailable Korin Kraft RN Unavailable Encounter Details Date Type Department Care Team (Late st Contact Info) Description 05/21/2024 Abstract [facility] [address] [place] [address] Alberto Ibrahim DPM [address] [place], [place] [address] Social History Tobacco Use Types Packs/Day Years [...] documented as of this encounter Care Teams Driver License Agent Relationship Specialty Start Date End Date Jordan Wong MD 112 [facility] 100 [place] [address] PCP - General Family Medicine 10/25/22 Jordan Wong MD 112 [facility] 100 [place] [address] PCP - ACO Reach 08/05/23 Mitch Mello MD [address] [place] [address] Referring Physician Cardiology 05/17/23 07/24/24 Jr. Julio Henson DO 112 [facility] 150 [place] [address] Referring Physician Orthopaedic Surgery 05/17/23 Alberto Ibrahim DPM [address] [place], [place] [address] Referring Physician Podiatry 05/17/23 Julio Huddleston MD [address] [place] [address] Referring Physician Family Medicine 07/25/24 Hudson Stevenson MD [address] [place] [phone] Referring Physician Urology 07/25/24 Kitty Edmond OD [address] [facility] [place] [address] Referring Physician Optometry 07/25/24 Korin Kraft, RN [address] [address] Registered Nurse Family Medicine 12/24/24 documented as of this encounter
[2024-12-26 09:50] LABS: Alanine Aminotransferase 44 U/L (16-63); Albumin Globulin Ratio 1.0; Albumin Level 3.5 g/dL (3.4-5.0); Alkaline Phosphatase 77 U/L (46-116); Aspartate Amino Transferase 23 U/L (15-37); Cholesterol 172 mg/dL (<=200); Globulin 3.6 g/dL; HDL Cholesterol 40 mg/dL (40-60); Total Protein 7.1 g/dL (6.4-8.2); Triglycerides 279 mg/dL (<=150); VLDL CHOLESTEROL 55.8 mg/dL
== END 2024-12-26 07:53 | disposition home or self-care (01) ==
LOC: LAB 07:54
PROVIDERS: PCP Family Medicine; Visit Provider Internal Medicine Interventional Cardiology
DX: I25.10 Atherosclerotic heart disease of native coronary artery without angina pectoris (principal); E78.2 Mixed hyperlipidemia
CPT/HCPCS: 36415; 80061; 80076

== ENCOUNTER 2024-12-28 12:09 | Outpatient (OUT) | payer MEDICARE, SELFPAY ==
--- OUTSIDE RECORDS SUMMARY | 2010-08-31 06:30 | XMS_ITS | Encounter Summary ---
Author Organization [facility] Address [address] [facility], [address] [place] [address] Care Team Providers Care Stage Driver Name Role Phone Unavailable Primary Care Provider Unavailabl e Encounter Details Date Type Department Care Team (Late Contact Info) Description 08/31/2010 6:30 AM EDT Hospital Encounter [facility] Department [address] [place] [address] Altaf Velázquez MD [address] [place] [address] Social History Tobacco Use Types Packs/Day [...] Info) Description 02/22/2025 1:00 PM EDT Appointment [facility]C [address] [place] [address] phlebotomy documented as of this encounter Visit Diagnoses Not on filedocumented in this encounter
--- OUTSIDE RECORDS SUMMARY | 2013-08-17 02:10 | XMS_ITS | Encounter Summary ---
Author Organization [facility] Address [address], [address] [place] [address] Care Team Providers Care Skin Lap Bonder Name Role Phone Diego Bartlett MD Primary Care Provider [phone] Encounter Details Date Type Department Care Team (Late st Contact Info) Description 08/17/2013 2:10 AM EDT Hospital Encounter MTH PRE ADMIT [phone] Peewee Westfall, DPM [address] [place] [address] Social History Tobacco Use Types Packs/Day Years [...] 1:00 PM EDT Appointment [facility] [address] [place] [id number] phlebotomy documented as of this encounter [...] 12 lead (08/17/2013 8:50 AM EDT) Pathologist [facility] Ventricular Rate 57 BPM [facility] Atrial Rate 57 BPM [facility] P-R Interval 174 ms [facility] QRS Duration 86 ms [facility] Q-T Interval 406 ms [facility] QTc Calculation (Bazett) 395 ms [facility] P [place] 64 degrees [facility] R [place] 26 degrees [facility] T [place] 46 degrees [facility] 08/17/2013 8:50 AM EDT Narrative [facility] - 08/17/2013 6:59 PM EDT Sinus bradycardiaOtherwise normal ECGWhen compared with ECG of 05-OCT-2010 08:57,No significant change was found Procedure Note 08/17/2013 Sinus bradycardiaOtherwise normal ECGWhen compared with ECG of [id number],No significant change was found us Peewee Westfall DPM ECG ORDERABLES Final Result [facility] * XR Chest Standard TWO VW (08/17/2013 8:50 AM EDT) Anatomical Region Laterality Modality Chest Radiographic Lynn ging 08/17/2013 8:50 AM EDT Narrative 08/17/2013 4:48 PM EDT FINAL Procedure: TRT Aug 17 2013 8:50AM [id number] CHEST PA AND LATERAL Reason for Exam: [...] Fish MD IMPRESSION: SEE ABOVE. Transcribed by: [facility] on Aug 17 2013 4:48P Read by: CHAPIN BAUTISTA M.D. [id number] on Aug 17 2013 11:15A Electronically Signed by: DR. CHAPIN BAUTISTA M.D. on: Aug 17 2013 4:48P Procedure Note Chapin Bautista MD - 08/17/2013 FINAL Procedure: TRT Aug 17 2013 8:50AM [id number] CHEST PA AND LATERAL Reason for Exam: [...] Fish MD IMPRESSION: SEE ABOVE. Transcribed by: [facility] on Aug 17 2013 4:48P Read by: CHAPIN BAUTISTA M.D. [id number] on Aug 17 2013 11:15A Electronically Signed by: DR. CHAPIN BAUTISTA M.D. on: Aug 17 2013 4:48P us Peewee Westfall DPM IMG DIAGNOSTIC IMAGING ORDERA BLES Edited Result - Final * (ABNORMAL) Urinalysis with microscopic (08/17/2013 8:28 AM EDT) Color, UA YELLOW YEL 08/17/2013 10:10 AM EDT [facility] Turbidity UA CLEAR CLEAR 08/17/2013 10:10 AM EDT [facility] Glucose, Ur NEGATIVE NEG 08/17/2013 10:10 AM EDT [facility] Bilirubin Urine NEGATIVE NEG 08/17/201 4 10:10 AM EDT [facility] Ketones, Urine NEGATIVE NEG 08/17/2013 10:10 AM EDT [facility] Specific [place], UA >1.030(H) 1.010 - 1.020 08/17/2013 10:10 AM EDT [facility] Urine Hgb NEGATIVE NEG 08/17/2013 10:10 AM EDT [facility] pH, UA 6.0 5.0 - 9.0 08/17/2013 10:10 AM EDT [facility] Protein, UA NEGATIVE NEG 08/17/2013 10:10 AM EDT [facility] Urobilinogen, Urine Normal NORM 08/17/2013 10:10 AM EDT [facility] Nitrite, Urine NEGATIVE NEG 08/17/2013 10:10 AM EDT [facility] Leukocyte Esterase, Urine NEGATIVE NEG 08/17/2013 10:10 AM EDT [facility] Urinalysis Comments NOT REPORTED [facility] - 08/17/2013 10:10 AM EDT [facility] WBC, UA 0 TO 2 0 - 5 /HPF 08/17/2013 10:10 AM EDT [facility] RBC, UA None 0 - 2 /HPF 08/17/2013 10:10 AM EDT [facility] Casts UA NOT REPORTED 0 - 2 /LPF [facility] Crystals, UA NOT REPORTED NONE /HPF [facility] Epithelial Cells, UA 0 TO 2 0 - 25 /HPF 08/17/2013 10:10 AM EDT [facility] Comment: Performed at [address] [place], [place] [id number] Renal Epithelial, UA NOT REPORTED 0 /HPF [facility] Bacteria, UA NOT REPORTED NONE [facility] Mucus, UA NOT REPORTED NONE [facility] Trichomonas NOT REPORTED NONE [facility] Amorphous, UA NOT REPORTED NONE [facility] Other Observations UA NOT REPORTED NREQ [facility] Yeast, UA NOT REPORTED NONE [facility] URINE SPECIMEN / Unknown 08/17/2013 8:28 AM EDT 08/17/2013 8:29 AM EDT Peewee Westfall DPArin URINE ORDERABLES Final Result [facility] [address] [place] [id number], [facility] [phone] [facility] * (ABNORMAL) Basic Metabolic Panel (08/17/2013 8:28 AM EDT) Glucose 135(H) 70 - 99 mg/dL 08/17/2013 9:30 AM EDT [facility] BUN 16 8 - 23 mg/dL 08/17/2013 9:30 AM EDT [facility] Creatinine 0.73 0.70 - 1.20 mg/dL 08/17/2013 9:30 AM EDT [facility] BUN/Creatinine Ratio 22(H) 9 - 20 08/17/2013 9:30 AM EDT [facility] Calcium 9.7 8.6 - 10.0 mg/dL 08/17/2013 9:30 AM EDT [facility] Sodium 138 136 - 145 mmol/L 08/17/2013 9:30 AM EDT [facility] Potassium 4.5 3.5 - 5.1 mmol/L 08/17/2013 9:30 AM EDT [facility] Chloride 104 98 - 107 mmol/L 08/17/2013 9:30 AM EDT [facility] CO2 26 20 - 31 mmol/L 08/17/2013 9:30 AM EDT [facility] Anion Gap NOT REPORTED mmol/L [facility] GFR Non- >60 >60 mL/min 08/17/2013 9:30 AM EDT [facility] GFR >60 >60 mL/min 08/17/2013 9:30 AM EDT [facility] GFR Comment 08/17/2013 9:30 AM EDT [facility] Comment: Average GFR for 60-69 years old: 85 mL/min/1.73sq m Chronic Kidney Disease: <60 mL/min/1.73sq m Kidney failure: <15 mL/min/1.73sq m GFR Staging 08/17/2013 9:30 AM EDT [facility] Comment: Stage 1: Some kidney damage normal GFR Stage 2: Mild kidney damage GFR 60-89 Stage 3: Moderate kidney damage GFR 30-59 Stage 4: Severe kidney damage GFR 15-29 Stage 5: Severe kidney damage GFR <15 ESRD - chronic treatment by dialysis or transplant Performed at [address] [place] [address] BLOOD SPECIMEN / Unknown 08/17/2013 8:28 AM EDT 08/17/2013 8:29 AM EDT Peewee Westfall DPArin CHEMISTRY ORDERABLES Final Re sult [id number], [facility] [phone] [facility] * (ABNORMAL) CBC (08/17/2013 8:28 AM EDT) WBC 8.5 3.5 - 11.0 k/uL 08/17/2013 9:13 AM EDT [facility] RBC 5.32 4.5 - 5.9 m/uL 08/17/2013 9:13 AM EDT [facility] Hemoglobin 16.6 13.5 - 17.0 g/dL 08/17/2013 9:13 AM EDT [facility] Hematocrit 49.3 41 - 53 % 08/17/2013 9:13 AM EDT [facility] MCV 92.6 80 - 100 fL 08/17/2013 9:13 AM EDT [facility] MCH 31.2 26 - 34 pg 08/17/2013 9:13 AM EDT [facility] MCHC 33.7 31 - 37 g/dL 08/17/2013 9:13 AM EDT [facility] RDW 14.5(H) 10.0 - 14.0 % 08/17/2013 9:13 AM EDT [facility] Platelets 184 140 - 450 k/uL 08/17/2013 9:13 AM EDT [facility] Comment: Performed at [address] [place] [address] MPV NOT REPORTED 6.0 - 12.0 fL [facility] BLOOD SPECIMEN / Unknown 08/17/2013 8:28 AM EDT 08/17/2013 8:29 AM EDT us Peewee Westfall DPM HEMATOLOGY ORDERABLES Final R esult [facility] [address] [place] [address] [phone] [facility] documented in this encounter Visit Diagnoses Not on filedocumented in this encounter Care Teams Skin Lap Bonder Relationship Specialty Start Date End Date Diego Bartlett MD PCP - General 05/10/11 07/24/19 documented as of this encounter
--- OUTSIDE RECORDS SUMMARY | 2015-04-11 02:26 | XMS_ITS | Encounter Summary ---
Author Organization [facility] Address [address], [address] [place] [address] Care Team Providers Care Vice President Of Consulting Services Name Role Phone Diego Bartlett MD Primary Care Provider [phone] Encounter Details Date Type Department Care Team (Late st Contact Info) Description 04/11/2015 1:26 AM EST Hospital Encounter MTH PRE ADMIT [address] [phone] Tiburcio Brennan MD [address] [place] [address] Social History Tobacco Use Types [...] 1:00 PM EDT Appointment [facility] [address] [place], [place] [phone] phlebotomy documented as of this encounter Procedures [...] Pathologist [facility] Ventricular Rate 77 BPM [facility] Atrial Rate 77 BPM [facility] P-R Interval 174 ms [facility] QRS Duration 80 ms [facility] Q-T Interval 360 ms [facility] QTc Calculation (Bazett) 407 ms [facility] P [place] 51 degrees [facility] R [place] 17 degrees [facility] T [place] 51 degrees [facility] 04/11/2015 9:32 AM EST Narrative [facility] - 04/11/2015 3:49 PM EST Normal sinus rhythmPossible Inferior infarct , age undeterminedAbnormal ECGWhen compared with ECG of 24-OCT-2013 18:45,No significant change was found Procedure Note Result, Unknown Provider - 04/11/2015 Normal sinus rhythmPossible Inferior infarct , age undeterminedAbnormalECGWhen compared with ECG of 24-OCT-2013 18:45,No significant change wasfound us Tiburcio Brennan MD ECG ORDERABLES Final Result [facility] * XR Chest Standard [...] Specimen Description .SUDHAKAR 04/11/2015 8:47 AM EST [facility] Special Requests NOT REPORTED 04/11/2015 8:47 AM EST [facility] Culture NEGATIVE FOR: METHICILLIN RESISTANT STAPHYLOCOCCUS AUREUS 04/14/2015 10:55 AM EST [facility] Culture Performed at [address] [place] [address] 04/14/2015 10:55 AM EST [facility] Culture 04/14/2015 10:55 AM EST [facility] Status FINAL 04/14/2015 04/14/20 15 10:55 AM EST [facility] ANTERIOR NARES SWAB / Unknown 04/11/2015 8:50 AM EST 04/11/2015 8:55 AM EST Tiburcio Brennan MD MICROBIOLOGY - GENERAL ORDERA BLES Final Result [facility] [address] [place] [address], [facility] [phone] [facility] * (ABNORMAL) Basic Metabolic Panel (04/11/2015 8:43 AM EST) Glucose 157(H) 70 - 99 mg/dL 04/11/2015 10:03 AM EST [facility] BUN 11 8 - 23 mg/dL 04/11/2015 10:03 AM EST [facility] Creatinine 0.74 0.70 - 1.20 mg/dL 04/11/2015 10:03 AM EST [facility] BUN/Creatinine Ratio 15 9 - 20 04/11/2015 10:03 AM EST [facility] Calcium 9.6 8.6 - 10.4 mg/dL 04/11/2015 10:03 AM EST [facility] Sodium 138 135 - 144 mmol/L 04/11/2015 10:03 AM EST [facility] Potassium 4.3 3.7 - 5.3 mmol/L 04/11/2015 10:03 AM EST [facility] Chloride 100 98 - 107 mmol/L 04/11/2015 10:03 AM EST [facility] CO2 25 20 - 31 mmol/L 04/11/2015 10:03 AM EST [facility] Anion Gap 13 9 - 17 mmol/L 04/11/2015 10:03 AM EST [facility] GFR Non- >60 >60 mL/min 04/11/2015 10:03 AM EST [facility] GFR >60 >60 mL/min 04/11/2015 10:03 AM EST [facility] GFR Comment 04/11/2015 10:03 AM EST [facility] Comment: Average GFR for 60-69 years [...] treatment by dialysis or transplant Performed at [address] [place] [address] ([phone] BLOOD SPECIMEN / Unknown 04/11/2015 8:43 AM EST 04/11/2015 8:44 AM EST us Tiburcio Brennan MD CHEMISTRY ORDERABLES Final Re sult [address] [address] [phone] [facility] * (ABNORMAL) CBC auto differential (04/11/2015 [...] MPV NOT REPORTED 6.0 - 12.0 fL [facility] Differential Type NOT REPORTED [facility] Seg Neutrophils 74(H) 36 - 66 [...] AM EST PN LAB Comment: Performed at [address] [place] [address] ([phone] WBC Morphology NOT REPORTED [facility] RBC Morphology NOT REPORTED [facility] Platelet Estimate NOT REPORTED [facility] BLOOD SPECIMEN / Unknown 04/11/2015 8:43 AM EST 04/11/2015 8:44 AM EST us Tiburcio Brennan MD HEMATOLOGY ORDERABLES Final R esult [address] [address] [phone] [facility] documented in this encounter Visit Diagnoses Not on filedocumented in this encounter Care Teams Vice President Of Consulting Services Relationship Specialty Start Date End Date Diego Bartlett MD PCP - General 12/5/11 2/18/20 documented as of this encounter
--- OUTSIDE RECORDS SUMMARY | 2015-05-08 02:32 | XMS_ITS | Encounter Summary ---
Author Organization [facility] Address [address] [facility], [address] [place] [address] Care Team Providers Care Rotary Shear Worker Helper Name Role Phone Diego Bartlett MD Primary Care Provider [phone] Encounter Details Date Type Department Care Team (Late st Contact Info) Description 05/08/2015 1:32 AM EST Hospital Encounter MTH PRE ADMIT [address] [place] [address] Tiburcio Brennan MD [address] [place] [address] Social History Tobacco Use Types [...] 1:00 PM EDT Appointment [facility] [address] [place] [address] phlebotomy documented as of this encounter Procedures Procedure Name Priority Date/Time Associated Diagnosis Comments TYPE AND SCREEN Routine 05/08/2015 12:42 PM EST documented in this encounter Results * Type and screen (05/08/2015 12:42 PM EST) Expiration Date 05/15/2015 5 4:00 PM EST [facility] Arm Band Number [id number] 5 4:00 PM EST [facility] ABO/Rh A POSITIVE 05/08/2015 4:00 PM EST [facility] Antibody Screen NEGATIVE 5 4:00 PM EST [facility] Comment: Performed at [address] [place] [address] ([phone] 05/08/2015 12:4 2 PM EST 05/08/2015 12:43 PM EST Tiburcio Brennan MD BLOOD BANK TEST ORDERABLES Fi nal Result [place] [id number] [phone] [facility] documented in this encounter Visit Diagnoses Not on filedocumented in this encounter Care Teams Rotary Shear Worker Helper Relationship Specialty Start Date End Date Diego Bartlett MD PCP - General 05/10/11 07/24/19 documented as of this encounter
--- OUTSIDE RECORDS SUMMARY | 2024-12-21 11:20 | XMS_ITS | Encounter Summary ---
Author Organization [facility] Address [address] [place] [address] Care Team Providers Care Air Crew Officer Name Role Phone Jordan Wong MD Primary Care Provider [phone] Reason for Referral * (Routine) - Pending Review Specialty Diagnoses / Procedures Referred By Latanya clark Referred To Contact Diagnoses Pre-op evaluation Procedures ECG 12 lead unit performed Surya Gleason CNP [address] [place] [address] Phone: tel: fax: Referral ID Status Reason Start Date Expiration Date V isits Requested Visits Authorized [id number] Pending Review 12/21/2024 12/21/2025 1 1 Encounter Details Date Type Department Care Team (Late st Contact Info) Description 12/21/2024 11:20 AM EDT Office Visit [facility] [address] [place] [address] Surya Gleason CNP [address] [place] [address] Pre-op evaluation (Primary Dx); Coronary artery disease involving [place] coronary artery of [place] heart without angina pectoris; History of myocardial infarction; Primary hypertension; Mixed hyperlipidemia; Statin intolerance Social History Tobacco Use Types Packs/Day Years Used Date Smoking Tobacco: Former Cigarettes Smokeless Tobacco: Never Tobacco Cessation:Counseling Given: Not [...] Information Value Date Recorded Sex Assigned at Male 12/12/2024 1:25 PM EDT Legal Sex Male 12:08 AM EDT Gender Identity Male 12/12/2024 1:25 PM EDT Sexual Orientation Heterosexual or Straight 02/2025 1:25 PM EDT documented as of this encounter Last Filed Vital Signs Vital Sign Reading Time Taken Comments Blood Pressure 130/80 12/21/2024 10:35 AM EDT Pulse 63 12/21/2024 10:35 AM EDT Temperature - - Respiratory Rate - - Oxygen Saturation 94% 12/21/2024 10:35 AM EDT Inhaled Oxygen Concentration - - Weight 159 kg (351 lb) 12/21/2024 10:35 AM EDT Height 198.1 cm (6' 6 ) 12/21/2024 10:35 AM EDT Body Mass Index 40.56 12/21/2024 10:35 AM EDT documented in this encounter Progress Notes * Surya Gleason CNP - 12/21/2024 11:20 AM EDT Images from the original note were not included. SUBJECTIVE Reason for Visit: Juan Miguel Jennings is a 74 y.o. year old male patient being seen for surgical clearance. HPI: Juan Miguel Jennings is a 74 y.o. year old male with significant medical history of CAD status post ME with stenting procedures in the past (2006, most recent heart cath 2014 nonobstructive CAD patent stents), hypertension, MO, hyperlipidemia, rectal CA status post chemo and radiation, DM II. 12/21/2024 office visit: Patient is seen and evaluated in the office today for surgical clearance, right fifth toe amputation. He reports doing well overall. He denies chest pain, shortness of breath, palpitations, lower extremity edema. He stopped his previously prescribed amlodipine as his blood pressures dropped to low 100s and he was symptomatic. He notes exercising daily, and maintains his garden at home. Patient is at a moderate risk for major cardiovascular events, no further cardiac workup needed. Recommend continuing aspirin, hold 5-7 days prior if needed. 07/16/2024 office visit (Dr. Huddleston): Juan Miguel Jennings is a 74 y.o. [...] once he stopped those 2 medications also. Medical History[1] Surgical History[2] Problem List[3] family history includes Heart disease in his father and mother. Social History[4] OBJECTIVE Visit Vitals Smoking Status Every Day Physical Exam Constitutional: General Appearance: well-developed, appears stated age. Level of Distress: no acute distress. Neck: Jugular Veins: normal jugular venous pressure. Lungs: Auscultation: no rales or rhonchi and normal breath sounds. Cardiovascular: Rate And Rhythm: regular Heart Sounds: normal S1 and s2; Systolic Murmur: not heard. Diastolic Murmur: not heard. Extremities: no edema Peripheral Pulses: Pulses: full and equal in all extremities except if noted. Abdomen: Inspection and Palpation: non distended or tender and soft. Musculoskeletal: Inspection: no joint tenderness or swelling. Neurologic: Gait: normal gait. Psychiatric: Mental Status: alert and normal affect. Skin: Inspection and Palpation: warm and dry. Allergies: Allergies[5] Outpatient Medications: Current Outpatient Medications Medication Instructions amLODIPine (NORVASC) 5 mg, oral, Once Daily aspirin 81 mg EC tablet Take 1 tablet every day by oral route. cholecalciferol (Vitamin D-3) 25 MCG (1000 UT) capsule Take 3 capsules every day by oral route. diclofenac (Voltaren) 75 mg EC tablet As needed evolocumab (Repatha SureClick) 140 mg/mL pen injector 1 Pen, subcutaneous, Every 14 days famotidine (PEPCID) 20 mg, oral, 2 times daily gabapentin (NEURONTIN) 300 mg, oral, 2 times daily isosorbide mononitrate ER (IMDUR) 30 mg, oral, Once Daily, Do not crush or chew. losartan (COZAAR) 50 mg, oral, Daily metoprolol tartrate (Lopressor) 100 mg tablet Take 100 mg in am and 50 mg in pm every day niacin 500 mg tablet 1 tablet, oral, Once Daily oxybutynin XL (Ditropan-XL) 5 mg 24 hr tablet 1 tablet, oral, Daily pioglitazone (ACTOS) 30 mg, oral, Daily tamsulosin (FLOMAX) 0.4 mg, oral, 2 times daily testosterone cypionate (Depo-Testosterone) 200 mg/mL injection INJECT 400MG INTRAMUSCULARLY EVERY 4WEEKS Recent Labs: No visits with results within 6 Month(s) from this visit. Latest known visit with results is: No results found for any previous visit. I have personally reviewed and anaylzed the following laboratory results above. These findings havebeen analyzed in the context of the patient's clinical presentation. Cardiovascular Diagnostic Studies: Coronary angiogram 05/13/2014 Conclusion: 1. Nonobstructive CAD 2. Patent left circumflex and RCA stents 3. Overall preserved LV function Recent Labs Lipid profile 05/08/2024: Triglycerides 114, cholesterol 189, HDL 42, LDL 124. Blood testing 02/22/2024: Cr 0.89, BUN 18, eGFR 91, Na 137, K 4.5, AST 28, ALT 26 Hgb 17.8, WBC 6.7, plt 128 Blood testing 09/15/2022: Hemoglobin 16.7, platelets 154, BUN 11, creatinine 0.8, EGFR more than 60. Blood testing 07/28/2020: Hemoglobin 17.3, platelets 135, potassium 4.1, BUN 19, creatinine 0.75, LFTs normal. Blood testing 06/18/2019: Hemoglobin 7.4 platelets 146 BMP 05/10/2019: K 4.9, Cr 0.99, BUN 23. blood testing 02/27/2018: normal renal function Imaging and other tests Echocardiogram 05/22/2024: CONCLUSION: 1. Global left ventricular systolic function is normal; visually estimated ejection fraction is 55 to 60% 2. Normal right ventricular size and systolic function 3. Moderate left ventricular hypertrophy 4. Normal diastolic function 5. The left atrium is normal in size 6. No significant valvular abnormalities 7. Anterior free space; trivial effusion versus fat pad Stress test 05/17/2024: CONCLUSION: 1. Large fixed defects involving the anterior wall and inferior wall, LAD and RCA distributions 2. No redistribution to suggest reversible ischemia 3. Dilated left ventricle, EDV 180 milliliters 4. Low left ventricular ejection fraction of 49% 5. Normal exercise test ECG 04/08/2023: Normal sinus rhythm. ECG 09/15/2022: Sinus rhythm. Prior testing: ECG 12/04/2018: sinus bradycardia with borderline 1st degree AV block ECG 12/01/2017: normal Cath 05/13/2014 (done due to positive stress test): non obstructive CAD, patent RCA and Cx stents, overall preserved LV function. ABIs 02/18/2017: R 1.28; L 1.22 12 Lead ECG: No results found for this or any previous visit (from the past 4464 hours). I have personally reviewed and analyzed all available cardiac diagnostic tests and imaging reports.Findings have been analyzed in the context of the patient's clinical status. Assessment and Plan #Preop cardiac risk stratification Amputation of right fifth toe with general vs MAC per Dr. Rolando Boss Excellent exercise tolerance stays active, no chest pain, no dyspnea on exertion METs > 4 Patient is at a moderate risk for major cardiovascular events, no further cardiac workup needed Recommend continuing aspirin, hold 5-7 days prior if needed #CAD Denies chest pain Coronary artery disease with prior ME, stenting 2006 (?) Last cath was 05/13/2014 showed nonobstructive CAD, patent LCx and RCA stents, overall preserved LV function Most recent TTE 05/22/2024: EF 55 to 60%, moderate LVH, normal diastolic function, no significant valvular abnormalities GDMT: - On amlodipine 5 mg daily ---> stopped due BP dropping to 100s systolic and was symptomatic - Continue isosorbide mononitrate 30 mg daily - Continue losartan 50 mg daily - Continue metoprolol tartrate 100 mg twice daily - Continue aspirin 81 mg daily - Continue Leqvio (initiated prior visit in July 2024) #Hypertension Blood pressure today is 130/80 States his blood pressures are 120s to 130s systolic at home Stable - Continue losartan 50 mg daily #Hyperlipidemia Has documented statin intolerance and ezetimibe. 05/08/2024 lipid panel: LDL 124, HDL 42, triglycerides 114, total cholesterol 189 - Continue Leqvio (initiated prior visit in July 2024) - Repeat lipid panel #MO #DM Plan Overview: Lipid panel Twelve-lead ECG Patient is at a moderate risk for major cardiovascular events, no further cardiac workup needed Routine follow-up in 6 months No follow-ups on file. [facility] [1] Past Medical History: Diagnosis Date Coronary artery disease Diabetes mellitus (CMS/HCC) Hyperlipidemia Hypertension Sleep apnea [2] Past Surgical History: Procedure Laterality Date BACK SURGERY CARDIAC CATHETERIZATION CORONARY STENT PLACEMENT FOOT SURGERY TOTAL KNEE ARTHROPLASTY [3] Patient Active Problem List Diagnosis Coronary arteriosclerosis [...] of colon cancer Testicular hypofunction Hx of assisted use of blood thinners Internal derangement of [...] with neurologic complication (CMS/HCC) OAB (overactive bladder) [4] Social History Tobacco Use Smoking status: Every Day Types: Cigarettes Substance Use Topics Alcohol use: Yes Comment: occasional Drug use: Never [5] Allergies Allergen Reactions Clindamycin Glipizide Other Metformin Other Pravastatin Other Rosuvastatin Other Zetia [Ezetimibe] Other * Maria G Marlow MA - 12/21/2024 11:20 AM EDT Patient is here for surgery clearance. Patient is having right 5th hammer toe removed. Patient states he feels pretty good, patient is able to every day chores. Patient denies cardiac symptoms at this time documented in this encounter Plan of Treatment Not on file documented as of this encounter Procedures Procedure Name Priority Date/Time Associated Diagnosis Comments ECG 12 LEAD UNIT PERFORMED Routine 12/21/2024 10:36 AM EDT Pre-op evaluation documented in this encounter Results * ECG 12 lead unit performed (12/21/2024 10:36 AM EDT) Surya Gleason CNP ECG ORDERABLES Final Result documented in this encounter Visit Diagnoses Diagnosis Pre-op evaluation- Primary Coronary artery disease involving chip[place]cree coronary artery of chip[place]cree heart without angina pectoris History of myocardial infarction Primary hypertension Unspecified essential hypertension Mixed hyperlipidemia Statin intolerance documented in this encounter Care Teams Air Crew Officer Relationship Specialty Start Date End Date Jordan Wong MD [address] [place] [address] PCP - General 03/23/22 documented as of this encounter
--- OUTSIDE RECORDS SUMMARY | 2024-12-28 12:12 | XMS_ITS | Encounter Summary ---
Author Organization [facility] Address [address] [place] [address] Care Team Providers Care Polygraph Technician Name Role Phone Jordan Wong MD Primary Care Provider Mitch Mello MD Unavailable [phone] Jr. Julio Henson DO Unavailable [phone] Alberto Ibrahim DPM Unavailable [phone] Jordan Wong MD Unavailable [phone] Julio Huddletson MD Unavailable Hudson Stevenson MD Unavailable [phone] Kitty Edmond OD Unavailable Korin Kraft RN Unavailable [phone] Encounter Details Date Type Department Care Team [...] AM EST Narrative 05/18/2024 10:07 [place] [address] Nuclear Medicine Report Signed Patient: JUAN MIGUEL JENNINGS MR#: [id number] : 1950 Acct:[id number] Age/Sex: 74 / M ADM Date: 05/17/24 Loc: CARD Attending Dr: PAUL WEN APRN Ordering Physician: PAUL WEN APRN Date of Service: 05/17/24 Procedure(s): NM zainab perf SPECT rest str Accession Number(s): [id number] cc: JORDAN WONG ; PAUL WEN APRN Patient Name: JUAN MIGUEL JENNINGS MR#: [id number] : 1950 Exam Date: 05/17/2024 Ordering Doctor: [...] LOCATION: Mid-anterior. Mid-inferior. Apical anterior. Apical inferior. [place]ington. SIZE: Large (5 or more segments). SEVERITY: [...] Signed By: 05/18/24 1007 DD/ 1006 TD/TT: Bin Packer: Procedure Note Radiology, Radiologist, - 05/18/2024 [place] [address] Nuclear Medicine Report Signed Patient: JUAN MIGUEL JENNINGS JMR#: [id number] : 1950cct:[id number] Age/Sex: 74 / MADM Date: 05/17/24 Loc: CARD Attending Dr: PAUL WEN APRN Ordering Physician: PAUL WEN APRN Date of Service: 05/17/24 Procedure(s): NM zainab perf SPECT rest str Accession Number(s): [id number] cc: JORDAN WONG ; PAUL WEN APRN Patient Name: JUAN MIGUEL JENNINGS MR#: [id number] : 1950 Exam Date: 05/17/2024 Ordering Doctor: PAUL WEN [facility] RADIOLOGY REPORT PROCEDURE: NM ZAINAB PERF SPECT [...] LOCATION: Mid-anterior. Mid-inferior. Apical anterior. Apical inferior. [place]ington. SIZE: Large (5 or more segments). SEVERITY: [...] M.D. Signed By:05/18/24 1007 DD/ 1006 TD/TT: Bin Packer: us Generic External Data Provider [facility] IMAGING Final Result documented in this encounter Visit Diagnoses Not on filedocumented in this encounter Additional Health Concerns Assessment Noted Time PHQ-9 Depression Total Score: 0 05/17/20 23 9:00 AM EST documented as of this encounter Care Teams Polygraph Technician Relationship Specialty Start Date End Date Jordan Wong MD [address] [place] [address] PCP - General Family Medicine 10/25/22 Jordan Wong MD [address] [place] [address] PCP - ACO Reach 08/05/23 Mitch Mello MD [address] [place] [address] Referring Physician Cardiology 05/17/23 07/24/24 Jr. Julio Henson DO [address] [place] [address] Referring Physician Orthopaedic Surgery 05/17/23 Alberto Ibrahim DPM [address] [place] [address] Referring Physician Podiatry 05/17/23 Julio Huddleston MD [address] [place] [address] Referring Physician Family Medicine 07/25/24 Hudson Stevenson MD [address] [place], [place] [address] Referring Physician Urology 07/25/24 Kitty Edmond OD [address] [place] [address] Referring Physician Optometry 07/25/24 Korin Kraft, ARUN [address] [place] [address] Registered Nurse Family Medicine 12/24/24 documented as of this encounter
--- OUTSIDE RECORDS SUMMARY | 2024-12-28 12:12 | XMS_ITS | Encounter Summary ---
Author Organization [facility] Address [address] [place] [address] Care Team Providers Care Correspondence Analyst Name Role Phone Jordan Wong MD Primary Care Provider Mitch Mello MD Unavailable Jr. Julio Henson DO Unavailable Alberto Ibrahim DPM Unavailable Jordan Wong MD Unavailable [phone] Julio Huddleston MD Unavailable [phone] Hudson Stevenson MD Unavailable Kitty Edmond OD Unavailable Korin Kraft RN Unavailable Encounter Details Date Type Department Care Team (Late st Contact Info) Description 04/14/2023 Orders Only [facility] [address] [place] [address] Julio Huddleston MD [address] [place] [address] Social History Tobacco Use Types [...] on filedocumented in this encounter Care Teams Correspondence Analyst Relationship Specialty Start Date End Date Jordan Wong MD [address] [address] PCP - General Family Medicine 10/25/22 Jordan Wong MD [address] [address] PCP - ACO Reach 08/05/23 Mitch Mello MD [address] [place] [address] Referring Physician Cardiology 05/17/23 07/24/24 Jr. Julio Henson DO [address] [address] Referring Physician Orthopaedic Surgery 05/17/23 Alberto Ibrahim DPM [address] [place] [address] Referring Physician Podiatry 05/17/23 Julio Huddleston MD [address] [place] [phone] Referring Physician Family Medicine 07/25/24 Hudson Stevenson MD [address] [place] [address] Referring Physician Urology 07/25/24 Kitty Edmond OD [address] [place] [address] Referring Physician Optometry 07/25/24 Korin Kraft, RN [address] [place] [address] Registered Nurse Family Medicine 12/24/24 documented as of this encounter
--- OUTSIDE RECORDS SUMMARY | 2024-12-28 12:12 | XMS_ITS | Encounter Summary ---
Author Organization [facility] Address [address] [place] [address] Care Team Providers Care Bulb Brander Name Role Phone Jordan Wong MD Primary Care Provider [phone] Jr. Julio Henson DO Unavailable [phone] Alberto Ibrahim DPM Unavailable Jordan Wong MD Unavailable Julio Huddleston MD Unavailable [phone] Hudson Stevenson MD Unavailable [phone] Kitty Edmond OD Unavailable Korin Kraft RN Unavailable Reason for Visit * Reason Onset Date Comments Care Coordination 12/24/2024 Encounter Details Date Type Department Care Team (Late st Contact Info) Description 12/24/2024 Telephone [facility] [address] [place] [address] Jordan Wong MD 112 [facility] [address] [place] [address] Care Coordination Social History Tobacco Use Types [...] Let him know I sent this to [facility]. We have not prescribed since 2022. * [...] days and is miserable. Please send to [facility] in [place]. documented in this encounter Plan of Treatment Not on file documented as of this encounter Visit Diagnoses Diagnosis Chronic pain syndrome- Primary documented in this encounter Additional Health Concerns Assessment Noted Time PHQ-9 Depression Total Score: 2 07/25/19 25 9:00 AM EST documented as of this encounter Care Teams Bulb Brander Relationship Specialty Start Date End Date Jordan Wong MD [address] [place] [address] PCP - General Family Medicine 10/25/22 Jordan Wong MD [address] [place] [address] PCP - ACO Reach 08/05/23 Jr. Julio Henson DO [address] [place] [address] Referring Physician Orthopaedic Surgery 05/17/23 Alberto Ibrahim DPM [address] [place] [address] Referring Physician Podiatry 05/17/23 Julio Huddleston MD [address] [place] [address] Referring Physician Family Medicine 07/25/24 Hudson Stevenson MD 290 [place] [address] Referring Physician Urology 07/25/24 Kitty Edmond OD [address] [facility] [place] [address] Referring Physician Optometry 07/25/24 Korin Kraft, ARUN [address] [place] [address] Registered Nurse Family Medicine 12/24/24 documented as of this encounter
--- OUTSIDE RECORDS SUMMARY | 2024-12-28 12:12 | XMS_ITS | Encounter Summary ---
Author Organization [facility] Address [address] [place] [address] Care Team Providers Care Plant Utilities Engineer Name Role Phone Jordan Wong MD Primary Care Provider Mitch Mello MD Unavailable [phone] Jr. Julio Henson DO Unavailable [phone] Alberto Ibrahim DPM Unavailable [phone] Jordan Wong MD Unavailable [phone] Julio Huddleston MD Unavailable [phone] Hudson Stevenson MD Unavailable Kitty Edmond OD [...] PM EST Narrative 05/22/2024 5:07 [place] [address] Cardiology Report Signed Patient: JUAN MIGUEL JENNINGS MR#: [id number] : 1950 Acct:[id number] Age/Sex: 74 / M ADM Date: 05/22/24 Loc: CARD Attending Dr: PAUL WEN APRN Ordering Physician: PAUL WEN APRN Date of Service: 05/22/24 Procedure(s): CA echo doppler complete Accession Number(s): [id number] cc: JORDAN WONG MELINDA APRN Patient Name: JUAN MIGUEL JENNINGS MR#: [id number] : 1950 Exam Date: 05/22/2024 Ordering Doctor: [...] M.D. Signed By: 05/22/241706 DD/ 05 TD/TT: Shell Trim Tool Setter: Procedure Note Radiology, Radiologist, MD - 05/22/2024 [place] [address] Cardiology Report Signed Patient: JUAN MIGUEL JENNINGS R#: [id number] : 1950cct:[id number] Age/Sex: 74 / MADM Date: 05/22/24 Loc: CARD Attending Dr: PAUL WEN APRN Ordering Physician: PAUL WEN APRN Date of Service: 05/22/24 Procedure(s): CA echo doppler complete Accession Number(s): [id number] cc: JORDAN WONG ; PAUL WEN APRN Patient Name: JUAN MIGUEL JENNINGS MR#: [id number] : 1950 Exam Date: 05/22/2024 Ordering Doctor: PAUL WEN [facility] ECHOCARDIOGRAM REPORT PROCEDURE: CA ECHO DOPPLER [...] Diego M.D. Signed By:05/22/241706 DD/ 05 TD/TT: Shell Trim Tool Setter: [facility] External Data Provider [facility]AG[facility] Final Result * (ABNORMAL) ALL TESTOSTERONE (05/22/2024 8:39 AM EST) [facility] TESTOSTERONE 91(A) 264 - 916 ng/dL [facility] Comment: Adult male reference interval is based on a population of healthy nonobese males (BMI <30) between 19 and 39 years old. Lonnie et.al. JCEM 2017,102;7749-7761. PMID: [id number]. Performed at: [address], [place], [place] [id number] Accountant Tax: Zeke Almaguer PhD, Phone: [phone] 05/22/2024 8:39 AM EST 05/22/2024 8:40 AM EST Narrative CLIN[facility] - 05/23/2024 11:08 AM EST us Generic External Data Provider [facility] F inal Result JONN [facility] documented in this encounter Visit Diagnoses Not on filedocumented in this encounter Additional Health Concerns Assessment Noted Time PHQ-9 Depression Total Score: 0 05/17/20 9:00 AM EST documented as of this encounter Care Teams Plant Utilities Engineer Relationship Specialty Start Date End Date Jordan Wong MD 112 [facility] 100 [place] [address] PCP - General Family Medicine 10/25/22 Jordan Wong MD 112 [facility] 100 [place] [address] PCP - ACO Reach 08/05/23 Mitch Mello MD [address] [place] [address] Referring Physician Cardiology 05/17/23 07/24/24 Jr. Julio Henson DO 112 [facility] 150 [place] [address] Referring Physician Orthopaedic Surgery 05/17/23 Alberto Ibrahim DPM [address] [place], [place] [address] Referring Physician Podiatry 05/17/23 Julio Huddleston MD [address] [place] [address] Referring Physician Family Medicine 07/25/24 Hudson Stevenson MD 290 [place] [address] Referring Physician Urology 07/25/24 Kitty Edmond OD [address] [place] [address] Referring Physician Optometry 07/25/24 Korin Kraft, ARUN [address] [place] [address] Registered Nurse Family Medicine 12/24/24 documented as of this encounter
--- OUTSIDE RECORDS SUMMARY | 2024-12-28 12:12 | XMS_ITS | Encounter Summary ---
Author Organization [facility] Address [address] [place] [address] Care Team Providers Care Boots And Shoes Supervisor Name Role Phone Jordan Wong MD Primary Care Provider Mitch Mello MD Unavailable Jr. Julio Henson DO Unavailable [phone] Alberto Ibrahim DPM Unavailable Jordan Wong MD Unavailable Julio Huddleston MD Unavailable Hudson Stevenson MD Unavailable Kitty Edmond OD Unavailable Korin Kraft RN Unavailable Encounter Details Date Type Department Care Team (Late st Contact Info) Description 10/28/2023 Abstract [facility] [address] [place] [address] Jordan Wong MD [address] [address] Social History Tobacco Use Types Packs/Day Years [...] documented as of this encounter Care Teams Boots And Shoes Supervisor Relationship Specialty Start Date End Date Jordan Wong MD 112 [facility] 100 [place] [address] PCP - General Family Medicine 10/25/22 Jordan Wong MD 112 [facility] 100 [place] [address] PCP - ACO Reach 08/05/23 Mitch Mello MD [address] [place] [address] Referring Physician Cardiology 05/17/23 07/24/24 Jr. Julio Henson DO 112 [facility] 150 [place] [address] Referring Physician Orthopaedic Surgery 05/17/23 Alberto Ibrahim DPM [address] [place], [place] [address] Referring Physician Podiatry 05/17/23 Julio Huddleston MD [address] [place] [address] Referring Physician Family Medicine 07/25/24 Hudson Stevenson MD [address] [place] [phone] Referring Physician Urology 07/25/24 Kitty Edmond OD 2331 [facility] [address] Referring Physician Optometry 07/25/24 Korin Kraft, RN [address] [place] [address] Registered Nurse Family Medicine 12/24/24 documented as of this encounter
--- OUTSIDE RECORDS SUMMARY | 2024-12-28 12:12 | XMS_ITS | Encounter Summary ---
Author Organization [facility] Address [address] [place] [address] Care Team Providers Care Project Director Name Role Phone Jordan Wong MD Primary Care Provider Mitch Mello MD Unavailable [phone] Jr. Julio Henson DO Unavailable Alberto Ibrahim DPM Unavailable [phone] Jordan Wong MD Unavailable Julio Huddleston MD Unavailable [phone] Hudson Stevenson MD Unavailable Kitty Edmond OD Unavailable Korin Kraft RN Unavailable Encounter Details Date Type Department Care Team (Late st Contact Info) Description 05/25/2023 Orders Only [facility] [address] [facility] [place] [address] Jordan Wong MD [address] [facility] [address] [place] [address] Social History Tobacco Use Types Packs/Day Years [...] documented as of this encounter Care Teams Project Director Relationship Specialty Start Date End Date Jordan Wong MD 112 [facility] 100 [place] [address] PCP - General Family Medicine 10/25/22 Jordan Wong MD [address] [address] PCP - ACO Reach 08/05/23 Mitch Mello MD [address] [place] [address] Referring Physician Cardiology 05/17/23 07/24/24 Jr. Julio Henson DO [address] [address] Referring Physician Orthopaedic Surgery 05/17/23 Alberto Ibrahim DPM [facility]0 [place], [place] [address] Referring Physician Podiatry 05/17/23 Julio Huddleston MD [address] [place] [address] Referring Physician Family Medicine 07/25/24 Hudson Stevenson MD [address] [place] [phone] Referring Physician Urology 07/25/24 Kitty Edmond OD [address] [facility] [place] [address] Referring Physician Optometry 07/25/24 Korin Kraft, RN [address] [place] [address] Registered Nurse Family Medicine 12/24/24 documented as of this encounter
--- OUTSIDE RECORDS SUMMARY | 2024-12-28 12:12 | XMS_ITS | Encounter Summary ---
Author Organization [facility] Address [address] [place] [address] Care Team Providers Care Inspector Pawnshop Detail Name Role Phone Jordan Wong MD Primary Care Provider Mitch Mello MD Unavailable [phone] Jr. Julio Henson DO Unavailable [phone] Alberto Ibrahim DPM Unavailable Jordan Wong MD Unavailable [phone] Julio Huddleston MD Unavailable Hudson Stevenson MD Unavailable Kitty Edmond OD Unavailable Korin Kraft RN Unavailable [phone] Encounter Details Date Type Department Care Team (Late st Contact Info) Description 09/30/2023 Orders Only [facility] [address] [place] [address] Kitty Edmond, OD [address] [place] [address] Social History Tobacco Use Types Packs/Day Years [...] documented as of this encounter Care Teams Inspector Pawnshop Detail Relationship Specialty Start Date End Date Jordan Wong MD [address] [address] PCP - General Family Medicine 10/25/22 Jordan Wong MD [address] [address] PCP - ACO Reach 08/05/23 Mitch Mello MD 1100 [place] [address] Referring Physician Cardiology 05/17/23 07/24/24 Jr. Julio Henson DO [address] [facility] 150 [place] [address] Referring Physician Orthopaedic Surgery 05/17/23 Alberto Ibrahim DPM [address] [place] [address] Referring Physician Podiatry 05/17/23 Julio Huddleston MD [address] [place] [address] Referring Physician Family Medicine 07/25/24 Hudson Stevenson MD [address] [place] [address] Referring Physician Urology 07/25/24 Kitty Edmond OD [address] [place] [address] Referring Physician Optometry 07/25/24 Korin Kraft, ARUN [address] [place] [address] Registered Nurse Family Medicine 12/24/24 documented as of this encounter
--- OUTSIDE RECORDS SUMMARY | 2024-12-28 12:12 | XMS_ITS | Encounter Summary ---
Author Organization [facility] Address [address] [place] [address] Care Team Providers Care Boat Patcher Plastic Name Role Phone Jordan Wong MD Primary Care Provider Mitch Mello MD Unavailable [phone] Jr. Julio Henson DO Unavailable Alberto Ibrahim DPM Unavailable [phone] Jordan Wong MD Unavailable [phone] Julio Huddleston MD Unavailable Hudson Stevenson MD Unavailable Kitty Edmond OD Unavailable Korin Kraft RN Unavailable [phone] Encounter Details Date Type Department Care Team (Late st Contact Info) Description 05/03/2023 Orders Only [facility] [address] [place] [address] Newton Stevenson MD [address] [place], [place] [address] Social History Tobacco Use Types Packs/Day Years [...] on filedocumented in this encounter Care Teams Boat Patcher Plastic Relationship Specialty Start Date End Date Jordan Wong MD [address] [address] (Fax) PCP - General Family Medicine 10/25/22 Jordan Wong MD [address] [address] PCP - ACO Reach 08/05/23 Mitch Mello MD 1100 [place] [address] Referring Physician Cardiology 05/17/23 07/24/24 Jr. Julio Henson DO 112 [facility] 150 [place], [place] [address] Referring Physician Orthopaedic Surgery 05/17/23 Alberto Ibrahim DPM 1900 [place], [place] [phone] Referring Physician Podiatry 05/17/23 Julio Huddleston MD 1355 [place] [address] Referring Physician Family Medicine 07/25/24 Hudson Stevenson MD 290 [place], [place] [phone] Referring Physician Urology 07/25/24 Kitty Edmond OD 2331 [facility] [place] [address] Referring Physician Optometry 07/25/24 Korin Kraft, ARUN [address] [place] [address] Registered Nurse Family Medicine 12/24/24 documented as of this encounter
--- OUTSIDE RECORDS SUMMARY | 2024-12-28 12:12 | XMS_ITS | Encounter Summary ---
Author Organization [facility] Address [address] [place] [address] Care Team Providers Care Canvas Goods Fabricator Name Role Phone Jordan Wong MD Primary Care Provider [phone] Mitch Mello MD Unavailable [phone] Jr. Julio Henson DO Unavailable Alberto Ibrahim DPM Unavailable Jordan Wong MD Unavailable Julio Huddleston MD Unavailable [phone] Hudson Stevenson MD Unavailable Kitty Edmond OD Unavailable Korin Kraft RN Unavailable Encounter Details Date Type Department Care Team (Late st Contact Info) Description 04/20/2023 Orders Only [facility] [address] [place] [address] Jordan Wong MD 112 [facility] [address] [place] [address] Social History Tobacco Use Types Packs/Day Years [...] on filedocumented in this encounter Care Teams Canvas Goods Fabricator Relationship Specialty Start Date End Date Jordan Wong MD 112 [facility] 100 [place] [address] PCP - General Family Medicine 10/25/22 Jordan Wong MD 112 [facility] 100 [place] [address] PCP - ACO Reach 08/05/23 Mitch Mello MD 1100 [place] [address] Referring Physician Cardiology 05/17/23 07/24/24 Jr. Julio Henson DO 112 [facility] 150 [place] [address] Referring Physician Orthopaedic Surgery 05/17/23 Alberto Ibrahim DPM [address] [place] [address] Referring Physician Podiatry 05/17/23 Julio Huddleston MD [address] [place] [address] Referring Physician Family Medicine 07/25/24 Hudson Stevenson MD 290 [place] [address] Referring Physician Urology 07/25/24 [place] [address] [place] [address] Referring Physician Optometry 07/25/24 Korin Kraft, ARUN [address] [address] Registered Nurse Family Medicine 12/24/24 documented as of this encounter
--- OUTSIDE RECORDS SUMMARY | 2024-12-28 12:12 | XMS_ITS | Clinical Summary ---
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; History of myocardial infarction; Primary hypertension; Mixed hyperlipidemia; Statin intolerance from Last 3 Months Immunizations Immunization Administration Dates Next Due Influenza, High Dose Seasona l, Preservative Free 03/05/2019,03/03/2018 Influenza, Seasonal, Quadriv alent, Adjuvanted 05/06/2021,03/22/2020 Influenza, Unspecified 03/06/2016 Influenza, injectable, quadr ivalent, preservative free 04/06/2017,01/23/2016 Influenza, seasonal, injectable 03/23/2014,04/06 Novel [id number], preservative-free 04/21 Pneumococcal Conjugate PCV 13 03/03/2018 [...] 3 Months Insurance MEDICARE AARP Care Teams Maintenance Supervisor Mechanical Relationship Specialty Start Date End Date Jordan Wong MD [address] [place] [address] PCP - General 03/23/22
--- OUTSIDE RECORDS SUMMARY | 2024-12-28 12:12 | XMS_ITS | Clinical Summary ---
Author Organization [facility] Address [address] [place] [address] Care Team Providers Care Ceiling Installer Name Role Phone Jordan Wong MD Primary Care Provider [phone] Jr. 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 01/11/2023 Hypogonadism male [...] Encounters Date Type Department Care Team Description 12/26/2024 Clinisync Result Encounter [facility] External Department Unsolicited Provider, Generic External Data 12/24/2024 Telephone [facility] [address] [facility] 100 [place] [address] Jordan Wong MD Care Coordination 12/03/2024 Telephone [facility] [address] [facility] 100 [place] [address] Jordan Wong MD 10/18/2024 Telephone [facility] [address] [address] Jordan Wong MD from Last 3 Months Immunizations Immunization Administration Dates Next Due Influenza, [id number] 03/06/2016 Influenza, High Dose Seasona l, Preservative Free 03/05/2019,03/03/2018 Influenza, High-dose Seasona l, Quadrivalent, Preservative Free 03/04/2019,03/06/2016 Influenza, Seasonal, Quadriv alent, Adjuvanted 02/28/2023,04/16/2022,05/06/2021,03/22 Influenza, Unspecified 02/28/2023,2021,05/06/2021,03/22,03/05/2019,03/03/2018,04/06/2017 ,03/06/2016,03/06/2016,01/23/2016,03/06,04/06/2013 Influenza, injectable, quadr ivalent, preservative free 04/06/2017,01/23/2016 Influenza, seasonal, injectable 03/28/2024,03/23,04/06/2013 Influenza, trivalent, adjuvanted 03/28/2024 Moderna Bivalent Booster Vaccination 03/23/2022 Moderna SARS-CoV-2 50mcg/0.5mL Booster Novel [id number], preservative-free 04/21/2009 Pfizer Bivalent Booster 12 Y [...] Procedure Name Priority Date/Time Associated Diagnosis Comments ALL LIPID PROFILE (FASTING) Routine 12/26/2024 8:13 AM EDT HP LIVER PANEL Routine 12/26/2024 8:13 AM EDT POCT MICROALBUMIN Routine 09/18/2024 9:3 4 AM [...] Recently Relevant to Health Maintenance Results * [facility] LIVER PANEL (12/26/2024 8:13 AM EDT) BILIRUBIN TOTAL 0.5 0.2 - 1.0 mg/dL [facility] BILIRUBIN DIRECT 0.1 0.0 - 0.2 mg/dL [facility] ASPARTATE AMINO TRANSFERASE 23 15 - 37 U/L [facility] ALANINE AMINOTRANSFERASE 44 16 - 63 U/L [facility] ALKALINE PHOSPHATASE 77 46 - 116 U/L [facility] TOTAL PROTEIN 7.1 6.4 - 8.2 g/dL [facility] ALBUMIN LEVEL 3.5 3.4 - 5.0 g/dL [facility] GLOBULIN 3.6 g/dL [facility] ALBUMIN GLOBULIN RATIO 1.0 [facility] 12/26/2024 8:13 AM EDT 12/26/2024 8:14 AM EDT Narrative CLINISYNC - 12/26/2024 9:54 AM EDT us Generic External Data Provider JONN boswell Result JONN [facility] * (ABNORMAL) ALL LIPID PROFILE (FASTING) (12/26/2024 8:13 AM EDT) TRIGLYCERIDES 279(H) <=150 mg/dL [facility] CHOLESTEROL 172 <=200 mg/dL [facility] HDL CHOLESTEROL 40 40 - 60 mg/dL [facility] Comment: > or =60 mg/dl - LOW CARDIOVASCULAR RISK <40 mg/dl - HIGH CARDIOVASCULAR RISK LDL CHOLESTEROL CALCULATED 77.0 mg/dL [facility] Comment: <100 mg/dl OPTIMAL 100-129 mg/dl NEAR OR ABOVE OPTIMAL 130-159 mg/dl BORDERLINE HIGH 160-189 mg/dl HIGH >190 mg/dl VERY HIGH VLDL CHOLESTEROL 55.8 mg/dL [facility] CHOL HDL RATIO 4.3 [facility] Comment: 3.3 - 4.4 LOW RISK 4.4 - 7.1 AVERAGE RISK 7.1 - 11.0 MODERATE RISK >11.0 HIGH RISK 12/26/2024 8:13 AM EDT 12/26/2024 8:14 AM EDT Narrative CLINISYNC - 12/26/2024 9:54 AM EDT Generic External Data Provider CLINISYNC F inal Result [facility] * (ABNORMAL) POCT microalbumin manually resulted (09/18/2024 [...] Performing Organization Information Site ID: QPT Name: [facility] Address: [address] [place] [address], [address] [place] [phone] Director: Toan Lara MD Jordan Wong MD LAB BLOOD ORDERABLES Final R esult [facility] * Diabetic Retinopathy Screening - OU - Both Eyes (09/30/2023 9:57 AM EDT) Anatomical Region Laterality Modality Head Other Kitty Edmond OD OPHTH PHOTOGRAPHY Final Result * Colonoscopy (12/17/2020 12:00 PM EDT) Anatomical Region Laterality Modality Endoscopy 12/17/2020 12:0 0 PM EDT Narrative 12/17/2020 12:00 PM EDT PERFORMED AT [facility] LOCATION:[id number] Procedure Note CONVERSION, GENERIC - 10/20/2022 PERFORMED AT [facility] LOCATION:[id number] Jordan Wong MD ENDOSCOPY PROCEDURE ORDERABL ES Final Result from Last 3 Months or Most Recently Relevant to Health Maintenance Insurance MEDICARE [facility] Advance Directives Documents on File Type Date Recorded Patient Sales Enablement Analyst Expl anation Advance Directives and Living Will 11/20/2019 2018-05-09 Living Wi ll Advance Directives and Living Will 11/20/2019 2018-05-09 Power Of Bridge Saw Operator Care Teams Ceiling Installer Relationship Specialty Start Date End Date Jordan Wong MD [address] [place] [address] PCP - General Family Medicine 10/25/22 Jordan Wong MD [address] [place] [address] PCP - ACO Reach 08/05/23 Jr. Julio Henson DO [address] [place] [address] Referring Physician Orthopaedic Surgery 05/17/23 Alberto Ibrahim DPM [facility] [place] [address] Referring Physician Podiatry 05/17/23 Julio Huddleston MD [address] [place] [address] Referring Physician Family Medicine 07/25/24 Hudson Stevenson MD [address] [place] [address] Referring Physician Urology 07/25/24 Kitty Edmond OD [address] [place] [address] Referring Physician Optometry 07/25/24 Korin Kraft, ARUN [address] [facility] 230 [place] [address] Registered Nurse Family Medicine 12/24/24
--- OUTSIDE RECORDS SUMMARY | 2024-12-28 12:12 | XMS_ITS | Encounter Summary ---
Author Organization [facility] Address [address] [place] [address] Care Team Providers Care Computer Aided Drafter Name Role Phone Jordan Wong MD Primary Care Provider Mitch Mello MD Unavailable Jr. Julio Henson DO Unavailable Alberto Ibrahim DPM Unavailable Jordan Wong MD Unavailable [phone] Julio Huddleston MD Unavailable Hudson Stevenson MD Unavailable Kitty Edmond OD Unavailable Korin Kraft RN Unavailable Encounter Details Date Type Department Care Team (Late st Contact Info) Description 03/07/2023 Abstract [facility] [address] [place] [address] Alberto Ibrahim DPM [address] [place] [id number] Social History Tobacco Use Types Packs/Day Years [...] on filedocumented in this encounter Care Teams Computer Aided Drafter Relationship Specialty Start Date End Date Jordan Wong MD 112 [facility] 100 [place] [address] PCP - General Family Medicine 10/25/22 Jordan Wong MD [address] [address] PCP - ACO Reach 08/05/23 Mitch Mello MD [address] [place] [address] Referring Physician Cardiology 05/17/23 07/24/24 Jr. Julio Henson DO 112 [facility] 150 [place] [address] Referring Physician Orthopaedic Surgery 05/17/23 Alberto Ibrahim DPM [address] [place] [address] Referring Physician Podiatry 05/17/23 Julio Huddleston MD [address] [place] [address] Referring Physician Family Medicine 07/25/24 Hudson Stevenson MD [address] [place] [id number] Referring Physician Urology 07/25/24 Kitty Edmond OD [address] [place] [address] Referring Physician Optometry 07/25/24 Korin Kraft, ARUN [address] [place] [address] Registered Nurse Family Medicine 12/24/24 documented as of this encounter
--- OUTSIDE RECORDS SUMMARY | 2024-12-28 12:12 | XMS_ITS ---
Author Organization [facility] Address [address] [facility], [address] [place] [address] Care Team Providers Care Inserter Operator Name Role Phone Jordan Wong MD [...] 10/01/2015 S/P JORY - LCX & RCA ([id number]-Mp. kabour) 05/13 S/P cardiac cath-05/13/14-Dr. landrum 05/13/2014 [...]
--- OUTSIDE RECORDS SUMMARY | 2024-12-28 12:12 | XMS_ITS | Clinical Summary ---
Author Organization [facility] Address [address] [facility], [address] [place] [address] Care Team Providers Care Lawn Caretaker Name Role Phone Jordan Wong MD Primary Care Provider [phone] Allergies Active Allergy Reactions Criticality Noted Date [...] 10/01/2015 S/P JORY - LCX & RCA ([id number]-Do. kabour) 05/13 S/P cardiac cath-05/13/14-Dr. 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 Resolved Problems Problem Noted Date Diagnosed Date Resolved Date Screening for colorectal cancer 02/12/2014 04/03/2018 Encounters Date Type Department Care Team Description 10/17/2024 1:00 PM EDT Office Visit [facility] Part of [address] [address] Newton Stein MD Anal cancer [...] Info) Description 02/22/2025 1:00 PM EDT Appointment [facility] [address] [place] [address] phlebotomy Health Maintenance Due Date Last [...] 4.00 ng/mL [facility] Comment: Performed at [facility] [address] [place] [address] [facility] [address] [place] [address] CLIA No. [id number] CAP Accreditation No. [id number] Automotive Collision Repair Instructor: Clint Tamez M.D. 10/13/2018 9:50 AM EDT [...] understanding of their HBA1c result. Performed at [address] [place] [address] ([phone] BLOOD SPECIMEN / Unknown 08/04/2016 7:05 PM EST 08/04/2016 10:33 PM EST us Elton Dawson MD CHEMISTRY ORDERABLES Final Resu lt [facility] [address] [phone] [facility] * US ABDOMINAL LIMITED (04/15/2014 8:53 AM EST) Anatomical Region Laterality Modality Abdomen Other 04/15/2014 8:53 AM EST Narrative 04/15/2014 9:13 AM EST FINAL Procedure: [facility] Apr 15 2014 8:53AM [id number] US ABD LIMITED Reason for Exam: ^polycythemia, [...] kidneys reveals no hydronephrosis Report Transcribed by: [facility] on Apr 15 2014 9:13A Read by: CHAPIN BAUTISTA M.D. [id number] on Apr 15 2014 9:13A Electronically Signed by: DR. CHAPIN BAUTISTA M.D. on: Apr 15 2014 9:13A Procedure Note Chapin Bautista MD - 04/15/2014 FINAL Procedure: [facility] Apr 15 2014 8:53AM [id number] US ABD LIMITED Reason for Exam: ^polycythemia, [...] kidneys reveals no hydronephrosis Report Transcribed by: [facility] on Apr 15 2014 9:13A Read by: CHAPIN BAUTISTA M.D. [id number] on Apr 15 2014 9:13A Electronically Signed by: DR. CHAPIN BAUTISTA M.D. on: Apr 15 2014 9:13A Gilda Conner MD [facility] ORDERABLES Final Res ult from Last 3 Months or Most Recently Relevant to Health Maintenance Insurance [employer] MEDICARE SUPP Advance Directives Documents on File Type Date Recorded Patient Diamond Merchant Expl anation ACP-Power of Real Estate Portfolio Manager 08/31/2013 9:46 AM ACP-Advance Directive 08/31/2013 9:46 [...] 2:36 PM 05/13/2014 9:20 PM Care Teams Lawn Caretaker Relationship Specialty Start Date End Date Jordan Wong MD PCP - General 07/25/19
--- OUTSIDE RECORDS SUMMARY | 2024-12-28 12:12 | XMS_ITS | Encounter Summary ---
Author Organization [facility] Address [address] [place] [address] Care Team Providers Care Buckle Attaching Machine Operator Name Role Phone Jordan Wong MD Primary Care Provider Mitch Mello MD Unavailable Jr. Julio Henson DO Unavailable Alberto Ibrahim DPM Unavailable Jordan Wong MD Unavailable [phone] Julio Huddleston MD Unavailable [phone] Hudson Stevenson MD Unavailable [phone] Kitty Edmond OD Unavailable Korin Kraft RN Unavailable [phone] Encounter Details Date Type Department Care Team (Late st Contact Info) Description 05/21/2024 Abstract [facility] [address] [place] [address] Alberto Ibrahim DPM [address] [place], [place] [id number] Social History Tobacco Use Types Packs/Day Years [...] documented as of this encounter Care Teams Buckle Attaching Machine Operator Relationship Specialty Start Date End Date Jordan Wong MD 112 [facility] 100 [place] [address] PCP - General Family Medicine 10/25/22 Jordan Wong MD 112 [facility] 100 [place] [address] PCP - ACO Reach 08/05/23 Mitch Mello MD [address] [place] [address] Referring Physician Cardiology 05/17/23 07/24/24 Jr. Julio Henson DO [address] [facility] 150 [place] [address] Referring Physician Orthopaedic Surgery 05/17/23 Alberto Ibrahim DPM [address] [place], [place] [address] Referring Physician Podiatry 05/17/23 Julio Huddleston MD [address] [place] [address] Referring Physician Family Medicine 07/25/24 Hudson Stevenson MD [address] [phone] Referring Physician Urology 07/25/24 Kitty Edmond OD [address] [facility] [place] [place] [address] Referring Physician Optometry 07/25/24 Korin Kraft, RN [address] [address] Registered Nurse Family Medicine 12/24/24 documented as of this encounter
--- OUTSIDE RECORDS SUMMARY | 2024-12-28 12:12 | XMS_ITS | Encounter Summary ---
Author Organization [facility] Address [address] [facility] [place] [address] Care Team Providers Care Electronic Scale Tester Name Role Phone Jordan Wong MD Primary Care Provider [phone] Jr. Julio Henson DO Unavailable [phone] Alberto Ibrahim DPM Unavailable [phone] Jordan Wong MD Unavailable [phone] Julio Huddleston MD Unavailable [phone] Hudson Stevenson MD Unavailable [phone] Kitty Edmond OD Unavailable Korin Kraft RN Unavailable [phone] Encounter Details Date Type Department Care Team (Late st Contact Info) Description 12/26/2024 Clinisync Result Encounter [facility] External [...] Procedure Name Priority Date/Time Associated Diagnosis Comments [facility] LIVER PANEL Routine 12/26/2024 8:13 AM EDT ALL LIPID PROFILE (FASTING) Routine 12/26/2024 8:13 AM EDT documented in this encounter Results * (ABNORMAL) ALL LIPID PROFILE (FASTING) (12/26/2024 8:13 AM EDT) TRIGLYCERIDES 279(H) <=150 mg/dL [facility] CHOLESTEROL 172 <=200 mg/dL TB HDL CHOLESTEROL 40 40 - 60 mg/dL TB Comment: > or =60 mg/dl - LOW CARDIOVASCULAR RISK <40 mg/dl - HIGH CARDIOVASCULAR RISK LDL CHOLESTEROL CALCULATED 77.0 mg/dL TB Comment: <100 mg/dl OPTIMAL 100-129 mg/dl NEAR OR ABOVE OPTIMAL 130-159 mg/dl BORDERLINE HIGH 160-189 mg/dl HIGH >190 mg/dl VERY HIGH VLDL CHOLESTEROL 55.8 mg/dL TB CHOL HDL RATIO 4.3 TB Comment: 3.3 - 4.4 LOW RISK 4.4 - 7.1 AVERAGE RISK 7.1 - 11.0 MODERATE RISK >11.0 HIGH RISK 12/26/2024 8:13 AM EDT 12/26/2024 8:14 AM EDT Narrative CLINISYNC - 12/26/2024 9:54 AM EDT us Generic External Data Provider [facility] LIVER PANEL (12/26/2024 8:13 AM EDT) [...] AM EDT us Generic External Data Provider [facility] F inal [facility] documented in this encounter Visit Diagnoses Not on filedocumented in this encounter Additional Health Concerns Assessment Noted Time PHQ-9 Depression Total Score: 2 07/25/19 25 9:00 AM EST documented as of this encounter Care Teams Electronic Scale Tester Relationship Specialty Start Date End Date Jordan Wong MD [address] [place] [address] PCP - General Family Medicine 10/25/22 Jordan Wong MD [address] [place] [address] (Fax) PCP - ACO Reach 08/05/23 Jr. Julio Henson DO [address] [place] [address] Referring Physician Orthopaedic Surgery 05/17/23 Alberto Ibrahim DPM [address] [place] [address] Referring Physician Podiatry 05/17/23 Julio Huddleston MD [address] [place] [address] Referring Physician Family Medicine 07/25/24 Hudson Stevenson MD 290 [place] [address] Referring Physician Urology 07/25/24 Kitty Edmond OD [address] [place] [address] Referring Physician Optometry 07/25/24 Korin Kraft, ARUN [address] [address] Registered Nurse Family Medicine 12/24/24 documented as of this encounter
--- OUTSIDE RECORDS SUMMARY | 2024-12-28 12:12 | XMS_ITS | Encounter Summary ---
Author Organization [facility] Address [address] [place] [address] Care Team Providers Care Hoop Bender Tank Name Role Phone Jordan Wong MD Primary Care Provider Mitch Mello MD Unavailable Jr. Julio Henson DO Unavailable [phone] Alberto Ibrahim DPM Unavailable [phone] Jordan Wong MD Unavailable [phone] Julio Huddleston MD Unavailable Hudson Stevenson MD Unavailable Kitty Edmond OD Unavailable Korin Kraft RN Unavailable [phone] Encounter Details Date Type Department Care Team (Late st Contact Info) Description 10/25/2023 Orders Only [facility] [address] [place] [address] Newton Stevenson MD [address] [place], [place] [id number] Social History Tobacco Use Types Packs/Day Years [...] documented as of this encounter Care Teams Hoop Bender Tank Relationship Specialty Start Date End Date Jrodan Wong MD [address] [place] [address] PCP - General Family Medicine 10/25/22 Jordan Wong MD [address] [place] [address] PCP - ACO Reach 08/05/23 Mitch Mello MD [address] [place] [address] Referring Physician Cardiology 05/17/23 07/24/24 Jr. Julio Henson DO [address] [place] [address] Referring Physician Orthopaedic Surgery 05/17/23 Alberto Ibrahim DPM [address] [place] [place] [address] Referring Physician Podiatry 05/17/23 Julio Huddleston MD [address] [place] [phone] Referring Physician Family Medicine 07/25/24 Hudson Stevenson MD [address] [place] [address] Referring Physician Urology 07/25/24 Kitty Edmond OD [facility] [place] [address] Referring Physician Optometry 07/25/24 Korin Kraft, ARUN [address] [place] [address] Registered Nurse Family Medicine 12/24/24 documented as of this encounter
--- OUTSIDE RECORDS SUMMARY | 2024-12-28 12:12 | XMS_ITS | Encounter Summary ---
Author Organization [facility] Address [address] [place] [address] Care Team Providers Care Ceramic Tile Installation Helper Name Role Phone Jordan Wong MD Primary Care Provider Mitch Mello MD Unavailable Jr. Julio Henson DO Unavailable [phone] Alberto Ibrahim DPM Unavailable Jordan Wong MD Unavailable [phone] Julio Huddleston MD Unavailable [phone] Hudson Stevenson MD Unavailable Kitty Edmond OD Unavailable Korin Kraft RN Unavailable Encounter Details Date Type Department Care Team (Late st Contact Info) Description 01/19/2023 Abstract [facility] [address] [place] [address] Alberto Ibrahim DPM [address] [place], [place] [id number] Social History Tobacco Use Types Packs/Day Years [...] on filedocumented in this encounter Care Teams Ceramic Tile Installation Helper Relationship Specialty Start Date End Date Jordan Wong MD 112 [facility] 100 [place] [address] PCP - General Family Medicine 10/25/22 Jordan Wong MD [address] [address] PCP - ACO Reach 08/05/23 Mitch Mello MD [address] [place] [address] Referring Physician Cardiology 05/17/23 07/24/24 Jr. Julio Henson DO [address] [place] [address] Referring Physician Orthopaedic Surgery 05/17/23 Alberto Ibrahim DPM [address] [place] [address] Referring Physician Podiatry 05/17/23 Julio Huddleston MD [address] [place] [address] Referring Physician Family Medicine 07/25/24 Hudson Stevenson MD [address] [place] [id number] Referring Physician Urology 07/25/24 Kitty Edmond OD [address] [place] [address] Referring Physician Optometry 07/25/24 Korin Kraft, RN [address] [place] [address] Registered Nurse Family Medicine 12/24/24 documented as of this encounter
--- OUTSIDE RECORDS SUMMARY | 2024-12-28 12:12 | XMS_ITS ---
Author Organization [facility] Address [address] [facility] [place] [address] Care Team Providers Care Support Service Tech Name Role Phone Jordan Wong MD Primary Care Provider [phone] Jr. Julio Henson DO Unavailable [phone] Alberto Ibrahim DPM Unavailable [phone] Jordan Wong MD Unavailable [phone] Julio Huddleston MD Unavailable [phone] Hudson Stevenson MD Unavailable [phone] Kitty Edmond OD Unavailable Korin Kraft RN Unavailable [phone] Chronic Care Management (CCM) Status:Identified (Enrolling) Start date:12/24/2024 Enrollment reason:Identified by Health Plan Overview Please assess for Care Management needs. Case Team Name Relationship Phone Korin Kraft RN(Responsible Staff) Luiz cisneros Nurse [phone] Continued Care and Services Coordination
--- NOTE | 2024-12-28 12:16 | XR_ITS ---
[address] [address] Patient Name: NIMCO LARA MRN: [id number] date: 1950 Sex: M Assigned Patient Location: [facility] Current Patient Location: [facility] Accession/Order Number: [id number] Exam Date: 12/28/2024 15:02 Report Date: 12/28/2024 15:03 At the request of: ENEDINA HARGROVE DPM Procedure: XR chest 2V Plain film chest 2 view HISTORY: Presurgical assessment COMPARISON: 09/15/2022 FINDINGS: SUPPORT DEVICES: None POSTSURGICAL CHANGES: None HEART: Within normal limits PULMONARY MARÍA: Within normal limits MEDIASTINUM: Unremarkable LUNGS AND PLEURA: No acute lung process, pleural effusion or pneumothorax identified. BONY STRUCTURES: Intact ADDITIONAL FINDINGS None XR/XR chest 2V IMPRESSION: No acute process. Impression dictated by: Tomer Palacios M.D. 12/28/2024 3:03 PM Dictation Location: [place] Electronically authenticated by: [id number] Date: 12/28/2024 15:03
[2024-12-28 13:24] LABS: Anion Gap 12.4; Blood Urea Nitrogen 20.0 mg/dL (7.0-18.0); Calcium 9.5 mg/dL (8.5-10.1); Carbon Dioxide 27.4 mmol/L (21.0-32.0); Chloride 103 mmol/L (98-107); Estimated GFR (African America >60 (>=60 mL/min/1.73m^2); Estimated GFR (Non-African Ame >60 (>=60 mL/min/1.73m^2); Glucose 113 mg/dL (74-106); Potassium 4.8 mmol/L (3.5-5.1); Sodium 138 mmol/L (136-145)
[2024-12-28 13:26] LABS: Hematocrit 40.2 % (42.0-54.0); Hemoglobin 13.8 g/dL (14.0-18.0); Immature Granulocytes Abs Auto 0.03 10^3/uL (0.00-0.03); Immature Granulocytes Pct Auto 0.4 % (0.0-0.5); Lymphocytes Absolute Auto 1.4 10^3/uL (1.2-3.8); Mean Corpuscular HGB Conc 34.3 g/dL (29.9-35.2); Mean Corpuscular Hemoglobin 33.0 pg (25.9-34.0); Mean Corpuscular Volume 96.2 fL (80.0-94.0); Platelet Count 141 10^3/uL (150-450); Red Blood Count 4.18 10^6/uL (4.70-6.10); White Blood Count 7.1 10^3/uL (4.0-11.0)
[2024-12-28 13:34] LABS: INR 1.01; Partial Thromboplastin Time 30.4 sec (22.3-36.2); Prothrombin Time 10.7 sec (9.0-11.6)
== END 2024-12-28 12:10 | disposition home or self-care (01) ==
LOC: PST 12:10
PROVIDERS: PCP Family Medicine; Visit Provider Podiatrist Foot & Ankle Surgery
DX: Z01.810 Encounter for preprocedural cardiovascular examination (principal); Z01.812 Encounter for preprocedural laboratory examination; M20.41 Other hammer toe(s) (acquired), right foot; L97.519 Non-pressure chronic ulcer of other part of right foot with unspecified severity
CPT/HCPCS: 71046; 80048; 85025; 85610; 85730

== ENCOUNTER 2025-01-01 09:40 | Day surgery (SDC) | payer MEDICARE, SELFPAY ==
[2024-12-28 13:31] VITALS: BP 123/81; PULSE 53; TEMP 36.2; O2SAT 95; BMI 40.7
[2025-01-01 10:00] VITALS: BP 124/74; PULSE 68; TEMP 36.1; O2SAT 95; BMI 40.2
--- OUTSIDE RECORDS SUMMARY | 2025-01-01 10:04 | XMS_ITS | CCD ---
Author Organization [facility] Care Team Providers Care Spray Gun Striper Name Role Phone PHYSICIAN, DEFAULT Unavailable Unavailable PHYSICIAN, DEFAULT Unavailable Unavailable Diego Bartlett Primary Care Provider [phone] Jordan Duncan Primary Care Provider Jordan Duncan [...] DO Unavailable Alexandria DALAL, Brody Xiao Unavailable [phone] Jordan Duncan MD Unavailable [phone] Jordan Duncan MD Primary Care Provider [phone] Jordan Duncan MD Unavailable Jordan Duncan MD Primary Care Provider [phone] Jordan Duncan MD Unavailable [phone] Fernanda Solomon Attending Unavailable SAAVEDRA, Topher [...] Attending Unavailable Anuja Huddleston MD Unavailable Keri NOLASCO, Topher Ordoñez Unavailable Kitty Edmond OD Unavailable Anuja Huddleston MD Unavailable ALEXANDRIA, BRODY A Attending Unavailable HEMEJORDAN STUBBS Attending Unavailable HEMEJORDAN STUBBS Attending Unavailable RUSHER, BRODY A Attending Unavailable RUSHER, BRODY A Attending Unavailable RUSHER, BRODY A Attending Unavailable HEMEYERJORDAN Attending Unavailable RUSHER, BRODY A Attending Unavailable RUSHER, BRODY A Attending Unavailable RUSHER, BRODY A Attending Unavailable HEMEENOC, JORDAN Brown Attending Unavailable HEMEENOC, JORDAN Brown Attending Unavailable Abena DIAS, Korin Unavailable [phone] Allergies Allergy Classification Reported Allergen(s) Allergy Type Date of Onset Reaction(s) Facility (4 sources) Clindamycin/Linc omycin Propensity to adverse reactions to drug 8 Diarrhea [place], [place] (3 sources) Clindamycin [facility] 2 [facility] (4 sources) glipiZIDE; Translations: [GLIPIZIDE] Drug Allergy 2 Di[facility] [employer] Work Phone: (20 sources) metFORMIN; Translations: [METFORMIN] Drug Allergy 2 Diarrhea, Unknown [facility] Work Phone: (20 sources) Pravastatin; Translations: [PRAVASTATIN] Drug Allergy 2 Unknown [facility] [employer] Work Phone: (4 sources) rosuvastatin; Translations: [ROSUVASTATIN] Drug Allergy 2 [facility] [employer] Work Phone: (2 sources) Clindamycin; Translations: [CLINDAMYCIN] Drug Allergy 7 [facility] (1 source) glipiZIDE Drug Allergy 7 [facility] (1 source) metFORMIN Drug Allergy 7 [facility] (20 sources) Clindamycin Drug Allergy 2 Diarrhea [facility] (20 sources) ezetimibe; Translations: [EZETIMIBE] Drug Allergy 2 Unknown [facility] (20 sources) glipiZIDE Drug Allergy 2 Diarrhea, Unknown [facility] (20 sources) Rosuvastatin calcium Allergy to substance 1 Unknown [facility] Medications Current Medications Medication Drug Class(es) Dates Sig (Normalized) Sig (Original) amLODIPine 5 mg oral tablet (12 sources) Dihydropyridine Calcium [employer] Start: 06-08-2024 [...] 50 MCG (2000 UT) tablet Take by mouth Active Cholecalciferol [...] sodium 75 mg delayed release oral tablet (19 sources) Nonsteroidal Anti-inflammatory Drug Start: 12-24-2024 End: 12-24-2025 take 1 tablet by mouth twice daily as needed for pain diclofenac (Voltaren) 75 MG EC tablet Indications: Chronic pain syndrome Take 1 tablet (75 mg) by mouth 2 (two) times a day as needed (pain) Do not crush, chew, or split. 180 tablet 3 12/24/2024 12/24/2025 Active Start: 05-17-2023 End: 08-15-2023 diclofenac (VOLTAREN) 75 [...] 01/16/2025 Active gabapentin 100 mg oral capsule (8 sources) Anti-epileptic Agent Start: 09-18-2024 End: 10-18-2024 gabapentin (Neurontin) 100 MG capsule Indications: Type 2 diabetes mellitus with diabetic polyneuropathy, without long-term current use of insulin (HCC) Titrate from 1 to 2 capsules three times daily as needed for pain 540 capsule 1 10/18/2024 Active glipiZIDE 10 mg oral tablet (20 sources) Sulfonylurea Start: 01-01-2019 take 10 mg by mouth once daily glipiZIDE 10 mg, Oral, Daily, Refills(s) 0 Start Date: 01/01/19 Status: Ordered 24 hr isosorbide mononitrate 30 mg extended release oral tablet (12 sources) Nitrate Vasodilator Start: 06-08-2024 End: 06-08-2025 [...] Status: Ordered take 2 tablets by mo ut once daily losartan (COZAAR) 25 MG tablet [...] MG 24 hr tablet Indications: 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 (CMS/HCC) Take 1.5 [...] BID, # 180 cap(s), Refills(s) 3, Pharmacy: [facility]/pharmacy #[id number], 198, cm, 12/05/23 10:49:00 EDT, Height/Length Dosing, 150.3, kg, 12/05/23 10:49:00 EDT, Weight Dosing Start Date: 01/11/24 Status: Ordered Start: 06-18-2022 take 1 capsule by [facility] once daily tamsulosin 0.4 mg Cap 0.4 mg = 1 cap(s), Oral, Daily, # 90 cap(s), Refills(s) 3, Pharmacy: [facility]/pharmacy #[id number], 198, cm, 11/05/22 10:14:00 EDT, Height/Length [...] q4wk, # 10 mL, Refills(s) 1, Pharmacy: [facility]/pharmacy #[id number], 198, cm, 12/05/23 10:49:00 EDT, Height/Length Dosing, 150.3, kg, 12/05/23 10:49:00 EDT, Weight Dosing Start Date: 03/27/24 Status: Ordered Start: 01-03-2024 testosterone c ypionate 200 mg/mL IM Richelle 400 mg, IntraMuscular, q4wk, # 10 mL, Refills(s) 1, Pharmacy: [facility]/pharmacy #[id number], 198, cm, 12/05/23 10:49:00 EDT, Height/Length Dosing, 150.3, kg, 12/05/23 10:49:00 EDT, Weight Dosing Start Date: 01/03/24 Status: Ordered Start: 06-20-2023 testosterone c ypionate 200 mg/mL IM Richelle 450 mg, IntraMuscular, q4wk, # 10 mL, Refills(s) 1, [id number] 198, cm, 06/20/23 11:05:00 EST, Height/Length Dosing, 149, kg, 06/20/23 11:05:00 EST, Weight Dosing Start Date: 06/20/23 Status: Ordered Start: 05-09-2023 testosterone c ypionate 200 mg/mL IM Richelle 400 mg, IntraMuscular, q4wk, # 10 mL, Refills(s) 1, [id number] 198, cm, 11/05/22 10:14:00 EDT, Height/Length Dosing, 150, kg, 11/05/22 10:14:00 EDT, Weight Dosing Start Date: 05/09/23 Status: Ordered Start: 02-08-2023 testosterone c ypionate 200 mg/mL IM Richelle 400 mg, IntraMuscular, q4wk, # 10 mL, Refills(s) 2, Pharmacy: [facility]/pharmacy #[id number], 198, cm, 11/05/22 10:14:00 EDT, Height/Length Dosing, 150, kg, 11/05/22 10:14:00 EDT, Weight Dosing Start Date: 02/08/23 Status: Ordered Start: 08-27-2022 testosterone c ypionate 200 mg/mL IM Richelle 400 mg, IntraMuscular, q4wk, # 10 mL, Refills(s) 2, Pharmacy: [facility]/pharmacy #[id number], 198, cm, 06/18/22 9:10:00 EST, Height/Length Dosing, 164, kg, 06/18/22 9:10:00 EST, Weight Dosing Start Date: 08/27/22 Status: Ordered testosterone cypionate 200 mg/mL intramuscular solution (17 sources) Start: 02-01-2022 testosterone c ypionate 200 mg/mL intramuscular solution 400 mg = 2 mL, IntraMuscular, q4wk, 400mg once a month, # 10 mL, Refills(s) 3, Pharmacy: [facility]/pharmacy #[id number], 198, cm, 02/01/22 9:53:00 EDT, Height/Length Dosing, 166, kg, 02/01/22 9:53:00 EDT, Weight Dosing Start Date: 02/01/22 Status: Ordered Start: 11-23-2021 testosterone c ypionate 200 mg/mL intramuscular solution 350 mg, IntraMuscular, q4wk, # 10 mL, Refills(s) 1, Pharmacy: [facility]/pharmacy #[id number], 198, cm, 08/03/21 14:37:00 EST, Height/Length Dosing, 166, kg, 08/03/21 14:37:00 EST, Weight Dosing Start Date: 11/23/21 Status: Ordered Start: 08-03-2021 testosterone c ypionate 200 mg/mL intramuscular solution 350 mg, IntraMuscular, q4wk, # 10 mL, Refills(s) 1, Pharmacy: [facility]/pharmacy #[id number], 198, cm, 08/03/21 14:37:00 EST, Height/Length [...] Coronary arteriosclerosis; Translations: [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] Onset: 04-08-2017 [...] 01-13-2023 01-11-2023 Chronic 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 (1 source) residential (current) use of anticoagulants; Translations: [SKILLED NURSING CURRNT USE ANTICOAGULANTS] Onset: 10-12-2022 Episodic 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 (1 source) residential (current) use of aspirin; Translations: [SKILLED NURSING CURRENT USE OF ASPIRIN] Onset: 10-12-2022 Episodic 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 (1 source) 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) use of oral hypoglycemic drugs; Translations: [SKILLED NURSING USE ORAL HYPOGLYCEMIC DX] Onset: 10-12-2022 Episodic 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 (1 source) Other jail (current) drug therapy; Translations: [OTH SKILLED NURSING CURRENT DRUG THERAPY] Onset: 09-20-2022 Episodic Other [...] Chronic Other diseases of bladder and urethra (13 sources) Overactive bladder; Translations: [Overactive bladder] Onset: [...] right toe] Onset: 08-05-19 17 Resolved : 08-10-08-05-2016 Episodic Unclassified (3 sources) Patient encounter status; Translations: [Screening for colorectal cancer] Onset: 02-13-20 14 Resolved : 04-03-20 18 04-03-2018 Unclassified (1 source) CONTACT W/AND (SUSP) EXPOS COVID-19; Translations: [CONTACT W/AND (SUSP) EXPOS COVID-19] Onset: 01-19-20 Results Test Name Value Interpretation Reference Range Facility ALL CBC WITH AUTO DIFFon BASOPHILS ABSOLUTE AUTO 0 [facility] Basophils/100 WBC (Bld) 0.6 % 0.2 - 2.0 % [facility] Eosinophils/100 WBC (Bld) 5.5 % 0.9 - 7.0 % [facility] Erythrocyte distribution width (RBC) [Ratio] 13.2 % 11.0 - 15.0 % [facility] Hematocrit (Bld) [Volume fraction] 40.2 % Low 42.0 - 54.0 % [facility] Hemoglobin (Bld) [Mass/Vol] 13.8 g/dL Low 14.0 - 18.0 g/dL [facility] IMMATURE GRANULOCYTES ABS AUTO 0.03 [facility] Immature granulocytes/100 WBC (Bld) 0.4 % 0.0 - 0.5 % [facility] Interpretation and review of laboratory results Abnormal [facility] LYMPHOCYTES ABSOLUTE AUTO 1.4 [facility] Lymphocytes/100 WBC (Bld) 19.7 % Low 20.5 - 60.0 % [facility] MCH (RBC) [Entitic mass] 33 pg 25.9 - 34.0 pg [facility] MCHC (RBC) [Mass/Vol] 34.3 g/dL 29.9 - 35.2 g/dL [facility] MCV (RBC) [Entitic vol] 96.2 fL High 80.0 - 94.0 fL [facility] MONOCYTES ABSOLUTE AUTO 0.8 [facility] Monocytes/100 WBC (Bld) 11.2 % 1.7 - 12.0 % [facility] NEUTROPHILS ABSOLUTE AUTO 4.4 [facility] Neutrophils/100 WBC (Bld) 62.6 % 43.0 - 75.0 % [facility] Platelet mean volume (Bld) [Entitic vol] 11.9 fL 9.5 - 13.5 fL [facility] TBH EO # 0.4 [facility] TB[facility] PLT 141 Low [facility] RBC 4.18 Low [facility] WBC 7.1 [facility] XR CHEST 2Von 12-28-2024 [place] [id number] XRay Report Signed Patient: JUAN MIGUEL JENNINGS MR#: [id number] : 1950 Acct:[id number] Age/Sex: 74 / M ADM Date: 12/28/24 Loc: [facility] Attending Dr: Enedina Hargrove D.P.M. Ordering Physician: Enedina Hargrove D.P.M. Date of Service: 12/28/24 Procedure(s): XR chest 2V Accession Number(s): [id number] cc: JORDAN DUNCAN ; Enedina Hargrove D.P.M. [place] [address] Patient Name: JUAN MIGUEL JENNINGS MRN: [facility]:[id number] date: 1950 Sex: M Assigned Patient Location: [facility] Current Patient Location: [facility] Accession/Order Number: [id number] Exam Date: 12/28/2024 15:02 Report Date: 12/28/2024 15:03 At the request of: ENEDINA HARGROVE DPAna Procedure: XR chest 2V Plain film chest 2 view HISTORY: Presurgical assessment COMPARISON: 09/15/2022 FINDINGS: SUPPORT DEVICES: None POSTSURGICAL CHANGES: None HEART: Within normal limits PULMONARY MARÍA: Within normal limits MEDIASTINUM: Unremarkable LUNGS AND PLEURA: No acute lung process, pleural effusion or pneumothorax identified. BONY STRUCTURES: Intact ADDITIONAL FINDINGS None XR/XR chest 2V IMPRESSION: No acute process. Impression dictated by: Tomer Palacios M.D. 12/28/2024 3:03 PM Dictation Location: [place] [address] Electronically authenticated by: [id number] Y Date: 12/28/2024 15:03 Dictated By: Tomer Palacios D.O. Signed By: 12/28/24 1506 DD/ 150 TD/TT: Rate Clerk: [facility] Radiology, Radiologist, - 12/28/[address] [address] XRay Report Signed Patient: JUAN MIGUEL JENNINGS MR#: [id number] : 1950 Acct:[id number] Age/Sex: 74 / M ADM Date: 12/28/24 Loc: [facility] Attending Dr: Enedina Hargrove D.P.M. Ordering Physician: Enedina Hargrove D.P.M. Date of Service: 12/28/24 Procedure(s): XR chest 2V Accession Number(s): [id number] cc: JORDAN DUNCAN ; Enedina Hargrove D.P.M. The [place] [id number] Patient Name: JUAN MIGUEL JENNINGS MRN: [facility]:[id number] date: 1950 Sex: M Assigned Patient Location: [facility] Current Patient Location: [facility] Accession/Order Number: [id number] Exam Date: 12/28/2024 15:02 Report Date: 12/28/2024 15:03 At the request of: ENEDINA HARGROVE DPAna Procedure: XR chest 2V Plain film chest 2 view HISTORY: Presurgical assessment COMPARISON: 09/15/2022 FINDINGS: SUPPORT DEVICES: None POSTSURGICAL CHANGES: None HEART: Within normal limits PULMONARY MARÍA: Within normal limits MEDIASTINUM: Unremarkable LUNGS AND PLEURA: No acute lung process, pleural effusion or pneumothorax identified. BONY STRUCTURES: Intact ADDITIONAL FINDINGS None XR/XR chest 2V IMPRESSION: No acute process. Impression dictated by: Tomer Palacios M.D. 12/28/2024 3:03 PM Dictation Location: [place] [address] Electronically authenticated by: [id number] Y Date: 12/28/2024 15:03 Dictated By: Tomer Palacios D.O. Signed By: 12/28/24 1506 DD/ 150 TD/TT: Rate Clerk: [facility] Radiology Study observation (narrative) [facility] XR CHEST 2VOrdered By: [facility]2024 [facility]: ALL LIPID PROFILE (FASTING)o n 12-26-2024 [facility]OL [facility] RATIO 4.3 [facility] Comment on above: 3.3 - 4.4 LOW RISK 4.4 - 7.1 AVERAGE RISK 7.1 - 11.0 MODERATE RISK >11.0 HIGH RISK Cholesterol [Mass/Vol] 172 mg/dL NINF - 200 mg/dL [facility] Cholesterol in HDL [Mass/Vol] 40 mg/dL 40 - 60 mg/dL [facility] Comment on above: > or =60 mg/dl - LOW CARDIOVASCULAR RISK <40 mg/dl - HIGH CARDIOVASCULAR RISK Interpretation and review of laboratory results Abnormal [facility] re Magnesium [Mass/Vol] 77 mg/dL [facility] Comment on above: <100 mg/dl OPTIMAL 100-129 mg/dl NEAR OR ABOVE OPTIMAL 130-159 mg/dl BORDERLINE HIGH 160-189 mg/dl HIGH >190 mg/dl VERY HIGH Magnesium [Mass/Vol] 55.8 mg/dL [facility] Triglyceride [Mass/Vol] 279 mg/dL High NINF - 150 [facility] Albumin [Mass/Vol] 3.5 g/dL 3.4 - 5.0 g/dL [facility] ALBUMIN GLOBULIN RATIO 1 [facility] ALP [Catalytic activity/Vol] 77 U/L 46 - 116 U/L [facility] ALT [Catalytic activity/Vol] 44 U/L 16 - 63 U/L [facility] AST [Catalytic activity/Vol] 23 U/L 15 - 37 U/L [facility] Bilirubin [Mass/Vol] 0.5 mg/dL 0.2 - 1.0 mg/dL [facility] Bilirubin.indirect [Mass/Vol] 0.1 mg/dL 0.0 - 0.2 mg/dL [facility] Globulin (S) [Mass/Vol] 3.6 g/dL [facility] Protein [Mass/Vol] 7.1 g/dL 6.4 - 8.2 g/dL [facility] No Panel Informationon 12-26 [facility] W/AUTO DIFFon 10-11-2024 ABS IMMATURE GRAN 0.03 K/uL Normal 0.00-0.06 [facility] Comment on above: Result Comment: UNLE SS OTHERWISE INDICATED, ALL TESTING PERFORMED AT: [employer] [address] [place] [address] SENIOR FINANCIAL ANALYST: JONI NI M.D. CLIA NUMBER [id number] CAP ACCREDITATION AUID [id number] ABS NEUTROPHILS 3.59 K/uL Normal 1.9-8.0 Pathology [...] <= 20 mg/L (U) [Mass/Vol] 150 mg/dL [facility] Albumin/Creatinine DL <= 1.0 mg/L (U) [Ratio] 300 [facility] Creatinine (U) [Mass/Vol] 50 mg/dL [facility] No Panel Informationon 09-18 Interpretation and review of laboratory results Abnormal [facility] COMPREHENSIVE METABOLIC PANE Efren 09-13-2024 Albumin [Mass/Vol] 4.3 g/dL Normal 3.6-5.1 [facility] Comment on above: Performed By: #### 4 96, 0 #### [facility] [address], [address] [place] [address] Hand Salter: Toan Lara MD #### [id number] #### [facility]-[address] Hand Salter: Parvin Gray Albumin/Globulin [Mass ratio] 1.5 {ratio} Normal 1.0-2.5 [facility] Comment on above: Performed By: #### 4 , 0 #### [facility] [place] [address] Hand Salter: Toan Lara MD #### [id number] #### [place] [address] Hand Salter: Parvin Gray ALP [Catalytic activity/Vol] 64 U/L Normal 35-144 [facility] Comment on above: Performed By: #### 4 96, 0 #### [facility] [address], [address] [place] [address] Hand Salter: Toan Lara MD #### [id number] #### [facility] [address] [place], [place] [phone] Hand Salter: Parvin Gray ALT [Catalytic activity/Vol] 32 U/L Normal 9-46 [facility] Comment on above: Performed By: #### 4 96, 0 #### [facility] of [address], [address] [place] [address] Hand Salter: Toan Lara MD #### [id number] #### [facility] [address] [place] [address] Hand Salter: Parvin Gray AST [Catalytic activity/Vol] 23 U/L Normal 10-35 [facility] Comment on above: Performed By: #### 4 , 0 #### [facility] [address], [address] [place] [address] Hand Salter: Toan Lara MD #### [id number] #### [facility]-[place] [address] Hand Salter: Parvin Gray Bilirubin [Mass/Vol] 0.7 mg/dL Normal 0.2-1.2 [facility] Comment on above: Performed By: #### 4 , 7599 #### [facility] [address], [address] [place] [address] Hand Salter: Toan Lara MD #### [id number] #### [facility]-[place] [address] Hand Salter: Parvin Gray BUN/CREATININE RATIO SEE NOTE: Normal 6-22 [facility] Comment on above: Result Comment: Not Reported: BUN and Creatinine are within reference range. Performed By: #### 4 , 7599 #### [facility] [address], [address] [place] [address] Hand Salter: Toan Lara MD #### [id number] #### [facility] [address] [place] [address] Hand Salter: Parvin Gray Calcium [Mass/Vol] 9.3 mg/dL Normal 8.6-10.3 [facility] Comment on above: Performed By: #### 4 , 0 #### [facility] [address], [address] [place] [address] Hand Salter: Toan Lara MD #### [id number] #### [facility] [address] [place] [phone] Hand Salter: Parvin Ordoñez Flati Chloride [Moles/Vol] 105 mmol/L Normal 98-110 [facility] Comment on above: Performed By: #### 4 , 0 #### [facility] [address], [address] [place] [address] Hand Salter: Toan Lara MD #### [id number] #### [facility] [address] [place], [place] [phone] Hand Salter: Parvin Ordoñez Flati CO2 [Moles/Vol] 26 mmol/L Normal 20-32 [facility] Comment on above: Performed By: #### 4 , 7599 #### [facility] [address], [address] [place] [address] Hand Salter: Toan Lara MD #### [id number] #### [facility] [phone] Hand Salter: Parvin Felixi Creatinine [Mass/Vol] 0.84 mg/dL Normal 0.70-1.28 [facility] Comment on above: Performed By: #### 4 , 7599 #### [facility] [address], [address] [place] [address] Hand Salter: Toan Lara MD #### [id number] #### [facility] [address] [place] [phone] Hand Salter: Parvin Felixi GFR/1.73 sq M.predicted among non-blacks MDRD (S/P/Bld) [Vol rate/Area] 93 mL/min/{1.73_m2} Normal > OR = 60 [facility] Comment on above: Performed By: #### 4 , 7599 #### [facility] [address], [address] [place] [address] Hand Salter: Toan Lara MD #### [id number] #### [facility] [address] [place] [phone] Hand Salter: Parvin Felixi Globulin (S) [Mass/Vol] 2.8 g/dL Normal 1.9-3.7 [facility] Comment on above: Performed By: #### 4 , 7599 #### [facility] [address], [address] [place] [address] Hand Salter: Toan Lara MD #### [id number] #### [facility] [address] [place], [place] [address] Hand Salter: Parvin Ordoñez Flati Glucose [Mass/Vol] 129 mg/dL High 65-99 [facility] Comment on above: Result Comment: Fasting reference interval For someone without known diabetes, a glucose value >125 mg/dL indicates that they may have diabetes and this should be confirmed with a follow-up test. Performed By: #### 4 , 7599 #### [facility] [address], [address] [place] [address] Hand Salter: Toan Lara MD #### [id number] #### [facility] [address] [place], [place] [phone] Hand Salter: Parvin Ordoñez Flati Potassium [Moles/Vol] 4.7 mmol/L Normal 3.5-5.3 [facility] Comment on above: Performed By: #### 4 , 7599 #### [facility] [address], [address] [place] [address] Hand Salter: Toan Lara MD #### [id number] #### [facility] [address] [place], [place] [phone] Hand Salter: Parvin Ordoñez Flati Protein [Mass/Vol] 7.1 g/dL Normal 6.1-8.1 [facility] Comment on above: Performed By: #### 4 , 0 #### [facility] [address], [address] [place] [address] Hand Salter: Toan Lara MD #### [id number] #### [facility] [address] [place], [place] [phone] Hand Salter: Parvin Gray Sodium [Moles/Vol] 140 mmol/L Normal 135-146 [facility] Comment on above: Performed By: #### 4 , 0 #### [facility] [address], [address] [place] [address] Hand Salter: Toan Lara MD #### [id number] #### [facility] [address] [place], [place] [phone] Hand Salter: Parvin Gray Urea nitrogen [Mass/Vol] 23 mg/dL Normal 7-25 [facility] Comment on above: Performed By: #### 4 , 0 #### [facility] [address], [address] [place] [address] Hand Salter: Toan Lara MD #### [id number] #### [facility] [address] [place] [address] Hand Salter: Parvin Gray HEMOGLOBIN A1con 09-13-2024 HEMOGLOBIN A1c [...] for children. Performed By: #### 4 , 0 #### [facility] [address], [address] [place] [address] Hand Salter: Toan Lara MD #### [id number] #### [facility] [address] [place] [phone] Hand Salter: Parvin Gray LIPID PANEL, STANDARDon - Cholesterol [Mass/Vol] 242 mg/dL High <200 [facility] Comment on above: Order Comment: FASTI NG:YES FASTING: YES Performed By: #### 4 , 0 #### [facility] [address] [place] [address], [address] [place] [address] Hand Salter: Toan Lara MD #### [id number] #### [facility] [address] [place] [phone] Hand Salter: Parvin Felixi Cholesterol in HDL [Mass/Vol] 40 mg/dL Normal > OR = 40 [facility] Comment on above: Order Comment: FASTI NG:YES FASTING: YES Performed By: #### 4 , 7599 #### [facility] [address], [address] [place] [address] Hand Salter: Toan Lara MD #### [id number] #### [facility] [address] [place] [phone] Hand Salter: Parvin Felixi Cholesterol in LDL [Mass/Vol] 142 [...] LDL-C. Deion TORIBIO et al. MAHENDRA. 2013;310(19): 0113-0325 (http://education.[employer].Capitaine Train/faq/VEY827) Performed By: #### 4 , 7599 #### [facility] [address] [facility], [address] [place] [address] Hand Salter: Toan Lara MD #### [id number] #### [facility] [address] [place] [phone] Hand Salter: Parvin Gray Cholesterol.total/C holesterol in HDL [Mass ratio] 6.1 {ratio} High <5.0 [facility] Comment on above: Order Comment: FASTI NG:YES FASTING: YES Performed By: #### 4 , 0 #### [facility] [address], [address] [place] [id number] Hand Salter: Toan Lara MD #### [id number] #### [facility] [address] [place] [phone] Hand Salter: Parvin Gray NON HDL CHOLESTEROL 202 mg/dL (calc) High <130 [facility] Comment on above: Order Comment: FASTI NG:YES FASTING: YES Result Comment: For patients with diabetes plus 1 major ASCVD risk factor, treating to a non-HDL-C goal of <100 mg/dL (LDL-C of <70 mg/dL) is considered a therapeutic option. Performed By: #### 4 , 0 #### [facility] [address], [address] [place] [address] Hand Salter: Toan Lara MD #### [id number] #### [facility] [address] [place] [phone] Hand Salter: Parvin Gray Triglyceride [Mass/Vol] 389 mg/dL High <150 [facility] Comment on above: Order Comment: FASTI NG:YES FASTING: YES Result Comment: If a non-fasting specimen was collected, consider repeat triglyceride testing on a fasting specimen if clinically indicated. Aaliyah et al. J. of Clin. Lipidol. 2015;9:129-169. Performed By: #### 4 , 7599 #### [facility] [address], [address] [place] [address] Hand Salter: Toan Lara MD #### [id number] #### [facility] [address] [place] [phone] Hand Salter: Parvin Gray Office Visiton 07-16-2024 Follow-up visit [id number] Juan Miguel Jennings 1950 M Date Provider Department Center 07/16/2024 ANUJA ARMSTRONG [facility] Family History Problem Relation Age of Onset Heart disease Mother Heart disease Father Family Status - Relation Status Age at Mother Father Level of Service:91943 [place] OFFICE/OUTPATIENT ESTABLISHED MOD MDM 30 MIN Normal [facility] 36on 07-09-2024 36 What is his blood pressure running? We can have him try holding amlodipine to see if this will help. We can see how he's feeling at his follow-up appt next week. Normal [facility] CBC W/AUTO DIFFon 06-21-2024 ABS IMMATURE GRAN 0.04 K/uL Normal 0.00-0.06 [facility] Comment on above: Result Comment: UNLE SS OTHERWISE INDICATED, ALL TESTING PERFORMED AT: [employer] [address] [place] [id number] SENIOR FINANCIAL ANALYST: JONI NI M.D. CLIA NUMBER [id number] CAP ACCREDITATION AUID [id number] ABS NEUTROPHILS 5.59 K/uL Normal 1.9-8.0 Pathology [...] and informed him of above message from [facility]. He agrees to start isosorbide and amlodipine. Sent to [facility] per his request. He will see Dr. Huddleston in clinic on 07/16/2024 in [place]. Do you need me to send something to [facility] or did you already? Normal [facility] Documentationon 06-08-2024 Documentation [id number] Juan Miguel Jennings 1950 M Date Provider Department Center 06/08/2024 15196-WMYEIRON DU HVCANTICOAG ND HeartVAS Family History Problem Relation Age of Onset Heart disease Mother Heart disease Father Family Status - Relation Status Age at Mother Father Reason for Visit and Comments: PharmD Cardiology Consult [Other] Normal [facility] Orders Onlyon 06-02-2024 Orders Only [id number] Juan Miguel Jennings 1950 M Date Provider Department Center 06/02/2024 Tessa-PAUL CLE[facility]S [facility] Family History Problem Relation Age of Onset Heart disease Mother Heart disease Father Family Status - Relation Status Age at Mother Father Normal [facility] Reminderson 06-01-2024 Reminders Reminders From: Bertha [...] ) Other: PROVIDER RELATED REMINDER:_ ( ) 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 ( ) Call Pharmacy ( ) Call Lab ( ) Other: Special Instructions:_ Comments:_ Results in chart for review Normal [facility] ALL CBC WITH AUTO DIFFon BASOPHILS ABSOLUTE [...] (Bld) 0.1 % 0.0 - 0.5 % [facility] Interpretation and review of laboratory results Abnormal [facility] LYMPHOCYTES ABSOLUTE AUTO 1.1 Low [facility] Lymphocytes/100 WBC (Bld) 15 % Low 20.5 - 60.0 % [facility] MCH (RBC) [Entitic mass] 32.9 pg 25.9 - 34.0 pg [facility] MCHC (RBC) [Mass/Vol] 33.8 g/dL 29.9 - 35.2 g/dL [facility] MCV (RBC) [Entitic vol] 97.4 fL High 80.0 - 94.0 fL [facility] MONOCYTES ABSOLUTE AUTO 0.9 High [facility] Monocytes/100 WBC (Bld) 12.2 % High 1.7 - 12.0 % [facility] NEUTROPHILS ABSOLUTE AUTO 4.8 [facility] Neutrophils/100 WBC (Bld) 68.1 % 43.0 - 75.0 % [facility] Platelet mean volume (Bld) [Entitic vol] 12.5 fL 9.5 - 13.5 fL [facility] TBH EO # 0.3 [facility] PLT 144 Low [facility] RBC 5.44 [facility] WBC 7.1 [facility] Ambulatory Visit Summaryon 1 07-22-2023 Ambulatory Visit Summary Ambulatory Visit Summary MILAGROSSAURABHJUAN JUAN MIGUEL J :1950 Visit Date:05/21/2024 Ambulatory Visit Instructions Your Diagnosis Hypogonadism Elevated PSA BPH with urinary obstruction OAB (overactive bladder) Your Care Team Attending Physician - KERI NOLASCO, Topher Ordoñez Primary Care Physician - DAKOTA NOLASCO, JORDAN Brown This Is Your Medications List [facility] Prescription (METOPROLOL TARTRATE 100 MG TAB) aspirin [...] [facility] [address], [place] [address]- Medications What How Much When Instructions Unchanged [...] PSA 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 Ea (more content not included)... Normal [facility] Urology Office/Clinic Noteon 05-21-2024 Urology Office/Clinic Note [...] Has not been able to donate blood, [facility] will not let him. Pt will talk to his oncologist in [place] to see if there is another way he can donate blood. Shares he got CBC drawn on 05/08 at [facility], no results on [facility], called lab and they did not [...] onc to facilitate blood donation/get permission for [place]. 2. Elevated PSA (R97.20: Elevated prostate specific [...] [facility] [address], [place] [address]- Additional Instructions: f/u pending HGB/CBC and blood [...] 1 tab(s), (more content not included)... Normal [facility] Comment on above: Result Comment: Elec tronically [...] [Mass/Vol] 189 mg/dL NINF - 200 mg/dL [facility] Cholesterol in HDL [Mass/Vol] 42 mg/dL 40 - 60 mg/dL [facility] Comment on above: > or =60 mg/dl - LOW CARDIOVASCULAR RISK <40 mg/dl - HIGH CARDIOVASCULAR RISK LDL CHOLESTEROL CALCULATED 124.2 mg/dL [facility] Comment on above: <100 mg/dl OPTIMAL 100-129 mg/dl NEAR OR ABOVE OPTIMAL 130-159 mg/dl BORDERLINE HIGH 160-189 mg/dl HIGH >190 mg/dl VERY HIGH Magnesium [Mass/Vol] 22.8 mg/dL [facility] Triglyceride [Mass/Vol] 114 mg/dL NINF - 150 mg/dL [facility] Office Visiton 05-02-2024 Follow-up visit [id number] Juan Miguel Jennings 1950 M Date Provider Department Center 05/02/2024 PAUL JAIMES C[facility] Family History Problem Relation Age of Onset Heart disease Mother Heart disease Father Family Status - Relation Status Age at Mother Father Level of Service:84897 [place] OFFICE/OUTPATIENT ESTABLISHED MOD MDM 30 MIN Reason for Visit and Comments: Coronary Artery Disease [187] Hypertension [992464] Normal [facility] Ambulatory Visit Summaryon 1 06-23-2023 Ambulatory Visit Summary Ambulatory Visit Summary JUAN MIGUEL JENNINGS :1950 Visit Date:04/23/2024 Ambulatory Visit Instructions Your Diagnosis Hypogonadism Your Care Team Attending Physician - KERI NOLASCO, Topher Ordoñez Primary Care Physician - DAKOTA NOLASCO, JORDAN Brown This Is Your Medications List [facility] Prescription (METOPROLOL TARTRATE 100 MG TAB) aspirin [...] AM EST With: Where: [facility] of [address] [id number]- Tuesday 10:45 AM EST With: Topher SAAVEDRA MD Where: [facility] of [address] [id number]- Medications What How Much When Instructions Unchanged [...] PSA 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 [facility] Ambulatory Visit Summaryon 1 Ambulatory Visit [...] AM EST With: Where: [facility] [address] [address]- Tuesday 10:45 AM EST With: Topher SAAVEDRA MD Where: [facility] [address] [address]- Medications What How Much When Instructions Unchanged [...] us for your care. Normal [facility] CBC W/AUTO DIFFon 02-22-2024 ABS IMMATURE GRAN [...] on above: Result Comment: [facility] [address] [place] [address] CLIA No. [id number] CAP Accreditation No. [id number] Photogrammetric Stereo Compiler: Shaunna Dee M.D. Platelets (Bld) [#/Vol] 128 [...] JORDAN Brown This Is [facility]ations [facility] Prescription (METOPROLOL TARTRATE 100 MG TAB) aspirin [...] [facility] [address] [place] [address]- Medications What How Much When Instructions Unchanged [...] us for your care. Normal [facility] Urology Office/Clinic Noteon 12-05-2023 Urology Office/Clinic Note [...] URL [facility] [address] [place] [phone] Additional Instructions: 6 mos w/ T level and Hgb Patient Education Hypogonadism, Male I, Erica Marin, personally scribed for Dr. Saavedra on 12/05/2023 11:40:12. . Documentation recorded by the scribErica garcia, accurately reflects the services(s) I performed [...] (more content not included)... Normal [facility] Comment on above: Result Comment: Elec tronically Signed By: KERI NOLASCO, Topher Ordoñez\.br\Date and Time Signed: 12/05/23 11:42 EDT\.br\Electronically Co-Signed By: Erica Marin\.br\Date and Time Co-Signed: 12/05/23 11:40 EDT [facility] 11-22-2023 Lab Reports [id number] .00TIFF Normal [facility] 11-09-2023 Lab Reports [id number] .00TIFF Normal [facility] CBC W/AUTO DIFFon 10-25-2023 ABS IMMATURE GRAN [...] Inc Comment on above: Result Comment: [facility] [address] [place] [address] CLIA No. [id number] CAP Accreditation No. [id number] Photogrammetric Stereo Compiler: Shaunna Dee M.D. Platelets (Bld) [#/Vol] 141 [...] 9:00 AM EDT Where: [facility] Ambulatory Visit Summaryon 0 09-09-2023 [...] 8:30 AM EDT Where: [facility] Lab Report[facility] 07-15-2023 Lab Reports [id number] [facility] 06-28-2023 Lab Reports [id number] [facility] Ambulatory Visit Summaryon 0 06-20-2023 Ambulatory Visit Summary JUAN MIGUEL JENNINGS Stephanie :1950 Visit Date:06/20/2023 Ambulatory Visit Instructions Your Diagnosis Hypogonadism male Elevated PSA BPH with urinary obstruction Phimosis Urinary urgency Tests Performed Urnls Dip Stick Auto w/o Microscopy POC 29602 Your Care Team Attending Physician - KERI [...] 9:30 AM EST Where: [facility] Patient Educationon 06-20-19 Patient Education [...] Follow these instructions at home: ? Take kzsu-opi-yhgyyhc and prescription medicines only as told by [...] (more content not included)... 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 Normal [facility] Comment on above: Result Comment: Elec tronically Signed By: Topher SAAVEDRA MD\.br\Date and Time Signed: 06/20/23 11:28 EST\.br\Electronically Co-Signed By: Erica Marin\.br\Date and Time Co-Signed: 06/20/23 11:26 EST POINT OF CARE GLUCOSEon 09-05 Glucose [Mass/Vol] 112 mg/dL Critically high 74-106 T [facility] Comment on above: Performed By: #### P OCGLUC #### [facility] [address] [place] [address] Dr. Patria Sanders CBC AUTO DIFFon 09-15-2022 BASO # 0.0 103/ul Normal 0.0-0.1 [facility] Comment on above: Performed By: #### C BC #### [facility] [address] [place] [address] Dr. Patria Sanders Basophils/100 WBC (Bld) 0.5 % Normal 0.2-2.0 [facility] Comment on above: Performed By: #### C BC #### [facility] [address] [place] [address] Dr. Patria Sanders EO # 0.3 103/ul Normal 0.0-0.7 [facility] Comment on above: Performed By: #### C BC #### [facility] [address] [address] [address] Patria Sanders Eosinophils/100 WBC (Bld) 3.2 % Normal 0.9-7.0 [facility] Comment on above: Performed By: #### C BC #### [facility] [address] [place] [address] Dr. Patria Sanders Erythrocyte distribution width (RBC) [Ratio] 14.5 % Normal 11.0-15.0 [facility] Comment on above: Performed By: #### C BC #### [facility] [address] [place] [address] Dr. Patria Sanders Hematocrit (Bld) [Volume fraction] 49.0 % Normal 42.0-54.0 [facility] Comment on above: Performed By: #### C BC #### [facility] [address] [place] [address] Dr. Patria Sanders Hemoglobin (Bld) [Mass/Vol] 16.7 g/dL Normal 14.0-18.0 [facility] Comment on above: Performed By: #### C BC #### [facility] [address] [place] [address] Dr. Patria Sanders IG # 0.03 10e3/ul Normal 0.00-0.03 [facility] Comment on above: Performed By: #### C BC #### [facility] [address] [place] [address] Dr. Patria Sanders IG % 0.4 % Normal 0.0-0.5 [facility] Comment on above: Performed By: #### C BC #### [facility] [address] [place] [address] Dr. Patria Sanders LYMPH # 1.1 103/ul Critically low 1.2-3.8 [facility] Comment on above: Performed By: #### C BC #### [facility] [address] [place] [address] Dr. Patria Sanders Lymphocytes/100 WBC (Bld) 14.5 % Critically low 20.5-60.0 [facility] Comment on above: Performed By: #### C BC #### [facility] [address] [place] [address] Dr. Patria Sanders MANUAL DIFF REQ NO Normal [facility] Comment on above: Performed By: #### C BC #### [facility] [address] [place] [address] Dr. Patria Sanders MCH (RBC) [Entitic mass] 32.6 pg Normal 25.9-34.0 [facility] Comment on above: Performed By: #### C BC #### [facility] [address] [address] [address] Patria Sanders MCHC (RBC) [Mass/Vol] 34.1 g/dL Normal 29.9-35.2 [facility] Comment on above: Performed By: #### C BC #### [facility] [address] [address] [address] Patria Sanders MCV (RBC) [Entitic vol] 95.5 fL Critically high 80.0-94.0 [facility] Comment on above: Performed By: #### C BC #### [facility] [address] [address] [address] Patria Sanders MONO # 0.8 103/ul Normal 0.3-0.8 [facility] Comment on above: Performed By: #### C BC #### [facility] [address] [place] [address] Dr. Patria Sanders Monocytes/100 WBC (Bld) 9.6 % Normal 1.7-12.0 [facility] Comment on above: Performed By: #### C BC #### [facility] [address] [place] [address] Dr. Patria Sanders NEUT # 5.6 103/ul Normal 1.4-6.5 [facility] Comment on above: Performed By: #### C BC #### [facility] [address] [place] [address] Dr. Patria Sanders Neutrophils/100 WBC (Bld) 71.8 % Normal 43.0-75.0 [facility] Comment on above: Performed By: #### C BC #### [facility] [address] [place] [address] Dr. aPtria Sanders Platelet mean volume (Bld) [Entitic vol] 11.6 fL Normal 9.5-13.5 [facility] Comment on above: Performed By: #### C BC #### [facility] [address] [place] [address] Dr. Patria Sanders PLT 154 103/ul Normal 150-450 [facility] Comment on above: Performed By: #### C BC #### [facility] [address] [place] [address] Dr. Patria Sanders RBC 5.13 106/ul Normal 4.70-6.10 [facility] Comment on above: Performed By: #### C BC #### [facility] [address] [place] [address] Dr. Patria Sanders WBC 7.8 103/ul Normal 4.0-11.0 [facility] Comment on above: Performed By: #### C BC #### [facility] [address] [place] [address] Dr. Patria Sanders PROF CHEM 8 (BAS METB)on Anion gap [Moles/Vol] 11.4 mmol/L Normal [facility] Comment on above: Performed By: #### B MP #### [facility] [address] [place] [address] Dr. Patria Sanders Calcium [Mass/Vol] 9.1 mg/dL Normal 8.5-10.1 [facility] Comment on above: Performed By: #### B MP #### [facility] [address] [place] [address] Dr. Patria Sanders Chloride [Moles/Vol] 104 mmol/L Normal 98-107 [facility] Comment on above: Performed By: #### B MP #### [facility] [address] [place] [address] Dr. Patria Sanders CO2 [Moles/Vol] 28.7 mmol/L Normal 21.0-32.0 [facility] Comment on above: Performed By: #### B MP #### [facility] [address] [place] [address] Dr. Patria Sanders Creatinine [Mass/Vol] 0.80 mg/dL Normal 0.70-1.30 [facility] Comment on above: Performed By: #### B MP #### [facility] [address] [place] [address] Dr. Patria Sanders EGFR-AF VINCENTIAN >60 Normal >=60 [facility] Comment on above: Performed By: #### B MP #### [facility] [address] [address] [address] Patria Sanders EGFR-NON AF VINCENTIAN >60 Normal >=60 [facility] Comment on above: Performed By: #### B MP #### [facility] [address] [address] [address] Patria Sanders Glucose [Mass/Vol] 101 mg/dL Normal 74-106 [facility] Comment on above: Performed By: #### B MP #### [facility] [address] [address] [address] Patria Sanders Potassium [Moles/Vol] 4.1 mmol/L Normal 3.5-5.1 [facility] Comment on above: Performed By: #### B MP #### [facility] [address] [address] [address] Patria Sanders Sodium [Moles/Vol] 140 mmol/L Normal 136-145 [facility] Comment on above: Performed By: #### B MP #### [facility] [address] [address] [address] Patria Sanders Urea nitrogen [Mass/Vol] 11.0 mg/dL Normal 7.0-18.0 [facility] Comment on above: Performed By: #### B MP #### [facility] [address] [address] [address] Patria Sanders Urea nitrogen/Creatinine [Mass ratio] 13.8 mg/mg Normal [facility] Comment on above: Performed By: #### B MP #### [facility] [address] [address] [address] Patria Sanders PROTIMEon 09-15-2022 INR Coag (PPP) [Relative time] 1.02 {INR} Normal [facility] Comment on above: Performed By: #### P TT, PT #### [facility] [address] [address] [address] Patria Sanders INR GUIDELINES SEE BELOW Normal [facility] Comment on above: Result Comment: SANTO RED INR: 2.0 - 3.0 CONDITIONS NOT LISTED BELOW 2.5 - 3.5 FOR PROSTHETIC HEART VALVE REPLACEMENT 2.5 - 3.5 RECURRENT THROMBOSIS Performed By: #### P TT, PT #### [facility] [address] [place] [address] [address] [address] Patria Sanders PT Coag (PPP) [Time] 10.8 s Normal 9.0-11.6 [facility] Comment on above: Performed By: #### P TT, PT #### [facility] [address] [address] [address] Patria Sanders PTTon 09-15-2022 aPTT Coag (Bld) [Time] 32.0 s Normal 22.3-36.2 [facility] Comment on above: Performed By: #### P TT, PT #### [facility] [address] [place] [address] Dr. Patria Sanders Covid-19 PCR ([facility])on 01-04 SARS-CoV-2 (COVID-19) RNA NANCY+probe Ql (Unsp spec) Not detected Normal NOT DETECTED [facility] Comment on above: Result Comment: This test is not yet approved or cleared by the [place] FDA. When there are no FDA-approved or cleared tests available, and other criteria are met, FDA can make tests available under an emergency access mechanism called an Emergency Use Authorization (EUA). The EUA for this test is supported by the Pictures Editor of Health and Human Service's (HHS's) declaration [...] SARS-CoV-2. Performed By: #### C VDTBH #### [facility] [address] [place] [address] [address] [address] Patria Sanders Hemoglobin A1Con 09-24-2021 EAG 128.37 Normal [facility] Comment on above: Performed By: #### A 1C #### [facility] [address] [place], [place] [id number] HbA1c (Bld) [Mass fraction] 6.1 % High 4.0-6.0 [facility] [employer] Comment on above: Performed By: #### A 1C #### [facility] [address], [place] [id number] Testosteroneon 05-11-2021 TESTOS 314.70 ng/dL Normal 193.00-740.00 [facility] [employer] Comment on above: Performed By: #### T EST #### [facility] [address], [place] [id number] XR femur BIon 05-06-[address] [facility] [place] [address] [place] [address] XRay Report Signed Patient: Juan Miguel Jennings MR#: [id number] 25 : 1950 Acct:[id number] Age/Sex: 71 / M ADM Date: 05/06/21 Loc: X Room: Type: [facility] Attending Dr: Maxwell Staley PA-C Ordering Provider: Maxwell Staley PA-C Date of Service: 05/06/21 XR/XR chest 2V*: Z01.818 ([id number]) XR/XR femur BI: Z01.818 ([id number]) XR/XR tibia/fibula BI: . Copies to: Maxwell [...] Rosanne Echeverria M.D.05/06/2021 3:12 PM Dictation Location: [place] [address] Transcribed By: [facility] 05/06/21 1512 Dictated By: Rosanne Echeverria MD 05/06/21 1506 Signed By: 05/06/21 1512 [facility] Progress Noteon 10-12-2017 HIM IP Note OR Emissions Inspector [facility] Vital Signs Date Time Vital Sign Value Performing Clinician Facility 09-18-2024 09:24-0400 Body height 198.1 cm Jordan Duncan MD Work Phone: [facility] 09-18-2024 09:24-0400 Body mass index (BMI) [Ratio] 40.1 kg/m2 Jordan Duncan MD Work Phone: [facility] 09-18-2024 09:24-0400 Body weight 157.4 kg Jordan Duncan MD Work Phone: [facility] 09-18-2024 09:24-0400 Diastolic blood pressure 70 mm[Hg] Jordan Duncan MD Work Phone: [facility] 09-18-2024 09:24-0400 Heart rate 63 /min Jordan Duncan MD Work Phone: [facility] 09-18-2024 09:24-0400 SaO2% (BldA) [Mass fraction] 98 % Jordan Duncan MD Work Phone: [facility] 09-18-2024 09:24-0400 Systolic blood pressure 124 mm[Hg] Jordan Duncan MD Work Phone: [facility] 07-25-2024 10:01-0500 Body height 198.1 cm Jordan Duncan MD Work Phone: [facility] 07-25-2024 10:01-0500 Body mass index (BMI) [Ratio] 39.64 kg/m2 Jordan Duncan MD Work Phone: [facility] 07-25-2024 10:01-0500 Body weight 155.58 kg Jordan Duncan MD Work Phone: [facility] 07-25-2024 10:01-0500 Diastolic blood pressure 74 mm[Hg] Jordan Duncan MD Work Phone: [facility] 07-25-2024 10:01-0500 Heart rate 58 /min Jordan Duncan MD Work Phone: [facility] 07-25-2024 10:01-0500 SaO2% (BldA) [Mass fraction] 98 % Jordan Duncan MD Work Phone: [facility] 07-25-2024 10:01-0500 Systolic blood pressure 120 mm[Hg] Jordan Duncan MD Work Phone: [facility] 07-05-2024 13:45-0500 Diastolic blood pressure 72 mm[Hg] [facility] [employer] 07-05-2024 13:45-0500 Heart rate 77 /min [facility] 07-05-2024 13:45-0500 Systolic blood pressure 135 mm[Hg] [facility] [employer] 07-05-2024 13:16-0500 Body temperature 97.5 [degF] [facility] 07-05-2024 13:16-0500 Respiratory rate 18 /min [facility] Schedule [facility] 05-21-2024 10:44-0500 Blood Pressure Location Topher SAAVEDRA [facility] 05-21-2024 10:44-0500 Body temperature 98.6 [degF] Topher SAAVEDRA [facility] 05-21-2024 10:44-0500 Diastolic blood pressure 79 mm[Hg] Topher SAAVEDRA [facility] 05-21-2024 10:44-0500 Heart rate 58 /min Topher SAAVEDRA [facility] 05-21-2024 10:44-0500 Respiratory rate 16 /min Topher SAAVEDRA [facility] 05-21-2024 10:44-0500 Systolic blood pressure 133 mm[Hg] Topher SAAVEDRA [facility] 05-15-2024 10:21-0500 Body height 198.1 cm Brody Ibrahim DPM Work Phone: [facility] 05-15-2024 10:21-0500 Body mass index (BMI) [Ratio] 40.45 kg/m2 Brodygarrick Ibrahim DPM Work Phone: [facility] 05-15-2024 10:21-0500 Body weight 158.76 kg Brody Ibrahim DPM Work Phone: [facility] 04-23-2024 10:41-0500 Body height 198.1 cm Brodygarrick Ibrahim DPM Work Phone: [facility] 04-23-2024 10:41-0500 Body mass index (BMI) [Ratio] 40.45 kg/m2 Brody Hectorher DPM Work Phone: [facility] 04-23-2024 10:41-0500 Body weight 158.76 kg Brody Alexandria DPM Work Phone: [facility] 03-29-2024 12:49-0400 Body height 198.1 cm Brody Ibrahim DPM Work Phone: [facility] 03-29-2024 12:49-0400 Body mass index (BMI) [Ratio] 40.45 kg/m2 Brody Ibrahim DPM Work Phone: [facility] 03-29-2024 12:49-0400 Body weight 158.76 kg Brody Ibrahim DPM Work Phone: [facility] 03-27-2024 14:00-0400 Body height 198.1 cm Jordan Duncan MD Work Phone: [facility] 03-27-2024 14:00-0400 Body mass index (BMI) [Ratio] 40.45 kg/m2 Jordan Duncan MD Work Phone: [facility] 03-27-2024 14:00-0400 Body weight 158.76 kg Jordan Duncan MD Work Phone: [facility] 03-27-2024 14:00-0400 Diastolic blood pressure 76 mm[Hg] Jordan Duncan MD Work Phone: [facility] 03-27-2024 14:00-0400 Heart rate 71 /min Jordan Duncan MD Work Phone: [facility] 03-27-2024 14:00-0400 SaO2% (BldA) [Mass fraction] 97 % Jordan Duncan MD Work Phone: [facility] 03-27-2024 14:00-0400 Systolic blood pressure 128 mm[Hg] Jordan Duncan MD Work Phone: [facility] 03-13-2024 09:41-0400 Body height 198.1 cm Brody Ibrahim DPM Work Phone: [facility] 03-13-2024 09:41-0400 Body mass index (BMI) [Ratio] 40.45 kg/m2 Brody Ibrahim DPM Work Phone: [facility] 03-13-2024 09:41-0400 Body weight 158.76 kg Brody Ibrahim DPM Work Phone: [facility] 12-05-2023 10:38-0400 Blood Pressure Location Topher SAAVEDRA [facility] 12-05-2023 10:38-0400 Body temperature 98.6 [degF] Topher KERI [facility] 12-05-2023 10:38-0400 Diastolic blood pressure 86 [...] 198.1 cm Brody Ibrahim DPM Work Phone: [facility] 07-19-2023 10:37-0500 Body mass index (BMI) [Ratio] 39.87 kg/m2 Brody Ibrahim DPM Work Phone: [facility] 07-19-2023 10:37-0500 Body weight 156.49 kg Brody Ibrahim DPM Work Phone: [facility] 06-20-2023 10:33-0500 Blood Pressure Location Topher [...] [facility] 11-05-2022 10:12-0400 Blood Pressure Location Topherpeter SAAVEDRA [facility] 11-05-2022 10:12-0400 Diastolic blood pressure 78 mm[Hg] Topher SAAVEDRA [facility] 11-05-2022 10:12-0400 Heart rate 68 /min Topherpeter SAAVEDRA [facility] 11-05-2022 10:12-0400 Respiratory rate 16 /min Topher SAAVEDRA [facility] 11-05-2022 10:12-0400 Systolic blood pressure 130 mm[Hg] Topher SAAVEDRA [facility] 11-03-2022 14:34-0400 Body temperature 97.5 [degF] [facility] Schedule [facility] 11-03-2022 14:34-0400 Diastolic blood pressure 77 mm[Hg] [facility] Schedule [facility] 11-03-2022 14:34-0400 Heart rate 72 /min [facility] Schedule [facility] 11-03-2022 14:34-0400 Respiratory rate 18 /min [facility] Schedule [facility] 11-03-2022 14:34-0400 Systolic blood pressure 140 mm[Hg] [facility] 06-18-2022 08:55-0500 Blood Pressure Location Topher SAAVEDRA [...] pressure 98 mm[Hg] Topher SAAVEDRA [facility] 01-28-2022 13:48-0400 Diastolic blood pressure 76 mm[Hg] [facility] 01-28-2022 13:48-0400 Heart rate 56 /min [facility] Schedule [facility] 01-28-2022 13:48-0400 Respiratory rate 18 /min [facility] Schedule [facility] 01-28-2022 13:48-0400 Systolic blood pressure 135 mm[Hg] [facility] 01-28-2022 13:25-0400 Body temperature 97.39 [degF] [facility] Schedule [facility] 10-22-2020 12:25-0400 Body temperature 97.81 [degF] [facility] Schedule [facility] Work Phone: 10-22-2020 12:25-0400 Heart rate 67 /min [facility] Schedule [facility] Work Phone: 07-27-2019 08:03-0500 Body Temperature 96.3 [degF] [facility] [place] 07-27-2019 08:03-0500 BP Diastolic 80 mm[Hg] [facility] [place] , [place] 07-27-2019 08:03-0500 BP Systolic 129 mm[Hg] [facility] [place] 07-27-2019 08:03-0500 Pulse (Heart Rate) 63 /min [facility] [place] 07-27-2019 08:03-0500 Respiratory Rate 20 /min [facility] [place], [place] 03-13-2019 08:02-0400 Body Temperature 96.69 [degF] [facility] [place] [place] 03-13-2019 08:02-0400 BP Diastolic 83 mm[Hg] [facility] [place] , [place] 03-13-2019 08:02-0400 BP Systolic 162 mm[Hg] [facility] Schedule [facility] [place] 03-13-2019 08:02-0400 Pulse (Heart Rate) 74 /min [facility] Schedule [facility] [place] 03-13-2019 08:02-0400 Respiratory Rate 20 /min [facility] [place] 01-12-2019 08:03-0400 Body Temperature 96.91 [degF] [facility] [place] [place] 01-12-2019 08:03-0400 BP Diastolic 87 mm[Hg] [facility] [place] 01-12-2019 08:03-0400 BP Systolic 152 mm[Hg] [facility] [place] [facility] [place] 01-12-2019 08:03-0400 Pulse (Heart Rate) 63 /min [facility] Schedule [facility] [place] 01-12-2019 08:03-0400 Respiratory Rate 20 /min [facility] Schedule [facility] [place] [place] Encounters Encounter Date Encounter Type Care Provider Facility Start: 12-28-2024 End: 12-28-2024 Clinisync Result Encounter Generic External Data Provider [facility] External [facility] Unsolicited Start: 12-28-2024 End: 12-28-2024 Clinisync Result Encounter Generic External Data Provider [facility] External [facility] Unsolicited Start: 12-26-2024 End: 12-26-2024 Clinisync Result Encounter Generic External Data Provider [facility] External Department Unsolicited Start: 12-26-2024 End: 12-26-2024 Clinisync Result Encounter Generic External Data Provider [facility] External Department Unsolicited Start: 12-03-2024 End: 12-03-2024 Telephone encounter Jordan [...] above: Dyspepsia Start: 07-25-2024 End: 07-25-2024 Bamboo flowsheet Jordan Duncan MD Work Phone: [facility] Start: 07-25-2024 End: 07-25-2024 Bamboo flowstony Duncan [...] polyneuropathy, without long-term current use of insulin ([facility]); Type 2 diabetes mellitus with diabetic microalbuminuria, without long-term current use of insulin ([facility]); Type 2 diabetes mellitus with foot ulcer (CODE) ([facility]); Non-pressure chronic ulcer of other part of unspecified foot with unspecified severity ([facility]); Partial nontraumatic amputation of right foot ([facility]); Partial nontraumatic amputation of foot, left ([facility]); 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 ([facility]); History of myocardial infarction ([facility]); Mixed hyperlipidemia ([facility]); Adverse reaction to statin medication; Primary open angle glaucoma of both eyes, unspecified glaucoma stage ([facility]) Start: 07-25-2024 End: 07-25-2024 ambulatory JORDAN DUNCAN Not Available Start: 07-16-2024 End: 07-16-2024 ambulatory [facility] Start: 07-05-2024 End: 07-05-2024 ambulatory WILLI SANCHEZ [facility] Start: 07-05-2024 End: 07-05-2024 Subsequent hospital visit by physician [facility] Fast Track Chair 1 [facility] Comment on [...] 05-21-2024 End: 05-21-2024 ambulatory Topher SAAVEDRA Facility:[facility] Start: 05-21-2024 End: 05-21-2024 Patient encounter procedure Topher SAAVEDRA [facility] Start: 05-15-2024 End: 05-15-2024 ambulatory BRODY IBRAHIM Not Available Start: 05-15-2024 End: 05-15-2024 Postop follow up visit related to original px Brody Ibrahim DPM Work Phone: [facility] Comment on above: Diabetic polyneuropa [...] Start: 05-08-2024 ambulatory Topher SAAVEDRA [facility] ty[facility] Start: 05-02-2024 End: 05-02-2024 ambulatory [facility] Start: 04-23-2024 End: 04-23-2024 Bamboo flowsheet Brody Ibrahim DPM Work Phone: [facility] Start: 04-23-2024 End: 04-23-2024 Bamboo flowsheet Brody Ibrahim DPM Work Phone: [facility] Start: 04-23-2024 End: 04-23-2024 ambulatory Topher SAAVEDRA Facility:[facility] Start: 04-23-2024 End: 04-23-2024 Patient encounter procedure Topher SAAVEDRA [facility] Comment on above: Diabetic polyneuropa thy associated with type 2 diabetes mellitus (CMS/HCC) (Primary Dx); Nontraumatic amputation of foot, left (CMS/HCC); Nontraumatic amputation of foot, right (CMS/HCC) Start: 04-09-2024 End: 04-09-2024 Telephone encounter Brody Ibrahim DPM Work Phone: [facility] Comment on above: Advice Only (orthoti cs) Start: 03-29-2024 End: 03-29-2024 Bamboo flowsheet Brody Ibrahim DPM Work Phone: [facility] Start: 03-29-2024 End: 03-29-2024 Bamboo flowsheet Brody Ibrahim DPM Work Phone: [facility] Start: 03-29-2024 End: 03-29-2024 Postop follow up visit related to original px Brody Ibrahim DPM Work Phone: [facility] Comment on above: Diabetic polyneuropa [...] 03-27-2024 End: 03-27-2024 ambulatory Topher SAAVEDRA Facility:[facility] Start: 03-27-2024 End: 03-27-2024 Patient encounter procedure Topher SAAVEDRA [facility] Start: 03-13-2024 End: 03-13-2024 BamTyraTech flowsheet Brody Ibrahim DPM Work Phone: [facility] Start: 03-13-2024 End: 03-13-2024 BamHylioSofto flowsheet Brody Ibrahim DPM Work Phone: [facility] Start: 03-13-2024 End: 03-13-2024 Patient encounter procedure Brody Ibrahim DPM Work Phone: [facility] Comment on above: Acquired keratoderma (Primary Dx); Diabetic polyneuropathy associated with type 2 diabetes mellitus (CMS/HCC); Nontraumatic amputation of foot, left (CMS/HCC); Nontraumatic amputation of foot, right (CMS/HCC) Start: 03-13-2024 End: 03-13-2024 ambulatory BRODY IBRAHIM Not Available Start: 03-01-2024 End: 03-01-2024 ambulatory JORDAN DUNCAN [facility] Start: 02-27-2024 End: 02-27-2024 ambulatory Topher SAAVEDRA Facility:[facility] Start: 02-27-2024 End: 02-27-2024 Patient encounter procedure Topher SAAVEDRA [facility] Start: 01-31-2024 End: 01-31-2024 ambulatory Fernanda X Orzech Facility:[facility] Start: 01-31-2024 End: 01-31-2024 Patient encounter procedure Fernanda X Orzech [facility] Start: 01-10-2024 End: 01-10-2024 ambulatory BRODY IBRAHIM Not Available Start: 01-03-2024 End: 01-03-2024 ambulatory Topher SAAVEDRA Facility:[facility] Start: 12-06-2023 End: 12-06-2023 ambulatory BRODY IBRAHIM Not Available Start: 12-05-2023 End: 12-05-2023 ambulatory Topher SAAVEDRA Facility:[facility] Start: 12-05-2023 End: 12-05-2023 Patient encounter procedure Topher SAAVEDRA [facility] Start: 11-09-2023 End: 11-09-2023 ambulatory JORDAN DUNCAN [facility] Start: 11-07-2023 End: 11-07-2023 ambulatory Topher SAAVEDRA Facility:[facility] Start: 11-07-2023 End: 11-07-2023 Patient encounter procedure Top[facility] SAAVEDRA [facility] Start: 10-27-2023 End: 10-27-2023 ambulatory JORDAN DUNCAN Not Available Start: 10-12-2023 End: 10-12-2023 ambulatory JORDAN DUNCAN Not Available Start: 10-07-2023 End: 10-07-2023 ambulatory Topher SAAVEDRA Facility:[facility] Start: 10-07-2023 End: 10-07-2023 Patient encounter procedure Topher SAAVEDRA [facility] Start: 09-27-2023 End: 09-27-2023 ambulatory BRODY IBRAHIM Not Available Start: 09-09-2023 End: 09-09-2023 ambulatory Topher SAAVEDRA Facility:[facility] Start: 09-09-2023 End: 09-09-2023 Patient encounter procedure Topher SAAVEDRA [facility] Start: 08-15-2023 End: 08-15-2023 ambulatory Topher SAAVEDRA Facility: [facility] Start: 08-15-2023 End: 08-15-2023 Patient encounter procedure Topher SAAVEDRA [facility] Start: 07-19-2023 Bamboo flowsheet Brody Tyler er DPM Work Phone: [facility] Start: 07-19-2023 Bamboo flowsheet Brody Tyler er DPM Work Phone: [facility] Start: 07-19-2023 End: 07-19-2023 Patient encounter procedure Brody Ibrahim DPM Work Phone: [facility] Comment on above: Dermatophytosis of n ail (Primary Dx); Dystrophic nail; Diabetic polyneuropathy associated with type 2 diabetes mellitus (CMS/HCC); Nontraumatic amputation of foot, right (CMS/HCC); Nontraumatic amputation of foot, left (CMS/HCC); Acquired keratoderma Start: 07-18-2023 End: 07-18-2023 ambulatory Topher SAAVEDRA Facility:[facility] Start: 07-18-2023 End: 07-18-2023 Patient encounter procedure Topher SAAVEDRA [facility] Start: 06-20-2023 End: 06-20-2023 ambulatory Topher SAAVEDRA Facility:[facility] Start: 06-20-2023 End: 06-20-2023 Patient encounter procedure Topher SAAVEDRA [facility] Start: 05-09-2023 End: 05-09-2023 Patient encounter procedure Topher SAAVEDRA [facility] Start: 04-04-2023 End: 04-04-2023 Patient encounter procedure Topher SAAVEDRA [facility] Start: 02-08-2023 End: 02-08-2023 Patient encounter procedure JORDAN DUNCAN [facility] Start: 01-03-2023 End: 01-03-2023 Patient encounter procedure Topher SAAVEDRA [facility] Start: 12-03-2022 End: 12-03-2022 Patient encounter procedure Topher SAAVEDRA [facility] Start: 11-05-2022 End: 11-05-2022 Patient encounter procedure Topher SAAVEDRA [facility] Start: 11-03-2022 End: 11-03-2022 Subsequent hospital visit by physician [facility] 7 Schedule [facility] Comment on above: Polycythemia (Primar y Dx) Start: 10-25-2022 End: 10-26-2022 ambulatory ARNOLD PEOPLES Facility:[facility] Start: 10-05-2022 End: 10-06-[address] JORDAN DUNCAN . Facility:[facility] Start: 10-05-2022 End: 10-05-2022 Patient encounter procedure Topher SAAVEDRA [facility] Start: 09-30-2022 End: 09-30-[address] TOPHER SAAVEDRA . Facility:[facility] Start: 09-27-2022 End: 09-28-2022 ambulatory ARNOLD PEOPLES Facility:[facility] Start: 09-20-2022 End: 09-21-2022 ambulatory [facility] [place] [facility] Facility:[facility] Start: 09-20-2022 Encounter for preprocedural cardiovascular examination DR TOPHER SAAVEDRA . [facility] Start: 09-20-2022 Encounter for preprocedural laboratory examination DR TOPHER SAAVEDRA . [facility] Start: 09-20-2022 Encounter for preprocedural respiratory examination DR TOPHER SAAVEDRA . [facility] Start: 09-15-2022 End: 09-16-[address] TOPHER SAAVEDRA . Facility:[facility] Start: 09-15-2022 End: 09-16-2022 Encounter for preprocedural laboratory examination DR TOPHER SAAVEDRA . Facility:[facility] Start: 09-06-2022 End: 09-06-2022 Patient encounter procedure Topher SAAVEDRA [facility] Start: 06-18-2022 End: 06-18-2022 Patient encounter procedure Topher SAAVEDRA [facility] Start: 05-20-2022 End: 05-21-2022 ambulatory [facility] Facility:[facility] Start: 05-17-2022 End: 05-17-2022 Patient encounter procedure Topher SAAVEDRA [facility] Start: 04-21-2022 End: 04-22-2022 ambulatory [facility] Facility:[facility] Start: 04-21-2022 End: 04-21-2022 Patient encounter procedure Mandy Schaefer [facility] Start: 04-09-2022 End: 04-10-2022 ambulatory [facility] Facility:[facility] Start: 03-31-2022 End: 03-31-2022 Patient encounter procedure Mandy Schaefer [facility] Start: 03-22-2022 End: 03-23-2022 ambulatory [facility] Facility:[facility] Start: 03-03-2022 End: 03-03-2022 Patient encounter procedure Mandy Schaefer [facility] Start: 02-01-2022 End: 02-01-2022 Patient encounter procedure Topher SAAVEDRA [facility] Start: 01-28-2022 End: 01-28-2022 Subsequent hospital visit by physician [facility] Med Onc Lab Schedule [facility] Comment on above: Polycythemia (Primar y Dx) Start: 01-18-2022 End: 01-18-[address] JORDAN DUNCAN . Facility:[facility] Start: 01-06-2022 End: 01-07-2022 ambulatory [facility] Facility:[facility] Start: 12-21-2021 End: 12-21-2021 Patient encounter procedure Topher SAAVEDRA [facility] Start: 11-23-2021 End: 11-23-2021 Patient encounter procedure Topher SAAVEDRA [facility] [place] Start: 10-26-2021 End: 10-26-2021 Patient encounter procedure Topher SAAVEDRA [facility] Start: 09-28-2021 End: 09-28-2021 Patient encounter procedure Topher SAAVEDRA [facility] Start: 08-31-2021 End: 08-31-2021 Patient encounter procedure Topher Ordoñez KERI [facility] Start: 10-22-2020 End: 10-22-2020 Subsequent hospital visit by physician [facility] Med Onc Room 9 Schedule [facility] Comment on above: Polycythemia (Primar y Dx) Start: 07-27-2019 End: 07-27-2019 Subsequent hospital visit by physician [facility] Comment on above: Polycythemia (Primar y Dx) Start: 03-13-2019 End: 03-13-2019 Subsequent hospital visit by physician [facility] Med [facility]c Room 9 [facility] Comment on above: Polycythemia (Primar y Dx) Start: 01-12-2019 End: 01-12-2019 Subsequent [facility] Start: 02-16-2018 End: 02-17-2018 Patient encounter DEFAULT PHYSICIAN Facility:[facility] Procedures Date Procedure Procedure Detail Performing Clinician Start: 12-28-2024 XR CHEST 2V Generic Ex ternal Data Provider Start: 12-28-2024 ALL CBC WITH AUTO DIFF Generic External Data Provider Start: 12-26-2024 ALL LIPID PROFILE (FASTING) Generic External Data Provider Start: 12-26-2024 [facility] LIVER PANEL Generi c External Data Provider Start: 09-18-2024 Creatinine other source Jordan Duncan [...] disease S/P JORY - LCX & RCA ([id number]. kabour) [facility] Schedule BACK SURGERY Topher SAAVEDRA Placement of stent Topher Maria [facility] RECT[facility] CANCER SURGERY Agustin SAAVEDRA RIGHT VEIN REMOVED F ROM LEG Topher SAAVEDRA Plan of Treatment Date Care Activity Detail Author Start: 12-17-2030 Screening for malignant neoplasm of colon [facility] Start: 09-29-2025 Glaucoma screening Diabetes: Retinopathy Screening [facility] Start: 09-18-2025 Urine screening for protein Diabetes: Urine Protein Screening [facility] Start: 07-25-2025 Medicare Annual Wellness (AWV) Medicare Annual Wellness (AWV) [facility] Start: 02-21-2025 GFR test (Diabetes, CKD 3-4, OR last GFR 15-59) GFR test (Diabetes, CKD 3-4, OR last GFR 15-59) [facility] Start: 02-04-2025 Influenza vaccination Influenza Vaccine (#1) [facility] Start: 12-12-2024 Hemoglobin A1c measurement Diabetes: Hemoglobin A1C [facility] Start: 10-26-2024 End: 10-26-2024 Patient encounter procedure 10/26/2024 1:00 PM EDT Appointment [facility] [address] [phone] phlebotomy [facility] Comment on above: phlebotomy Start: 10-17-2024 End: 10-17-2024 Patient encounter procedure 10/17/2024 1:00 PM EDT Office Visit [facility] [address] [id number] Newton Stevenson MD [address] [place] [address] F/U polycythemia, anal cancer [facility] Comment on above: F/U polycythemia, anal cancer Start: 10-04-2024 Urine screening for protein Diabetes: Urine Protein Screening [facility] Start: 09-18-2024 End: 09-18-2024 Patient encounter procedure [facility] Comment on above: Essential hypertension ([facility]); Microalbuminuria; Mixed hyperlipidemia ([facility]/HCC); Type 2 diabetes mellitus with diabetic microalbuminuria, without long-term current use of insulin (CMS/HCC); Type 2 diabetes mellitus with diabetic polyneuropathy, without long-term current use of insulin ([facility]/HCC) Start: 08-25-2024 End: 03-27-2025 Comprehensive metabolic 2000 panel - Serum or Plasma Comprehensive metabolic panel Lab Routine Type 2 diabetes mellitus with diabetic polyneuropathy, without long-term current use of insulin ([facility]) Essential hypertension ([facility]/HCC) Expected: 08/25/2024, Expires: 03/27/2025 [facility] Work Phone: Comment on above: Expected: 08/25/2024, Expires: Start: 08-25-2024 End: 03-27-2025 Hemoglobin A1c/Hemoglobin.total in Blood Hemoglobin A1c Lab Routine Type 2 diabetes mellitus with diabetic polyneuropathy, without long-term current use of insulin ([facility]) Expected: 08/25/2024, Expires: 03/27/2025 [facility] Comment on above: Expected: 08/25/2024, Expires: Start: 08-25-2024 End: 03-27-2025 Lipid 1996 panel - Serum or Plasma Lipid panel Lab Routine Mixed hyperlipidemia ([facility]/HCC) Expected: 08/25/2024, Expires: 03/27/2025 [facility] Comment on above: Expected: 08/25/2024, Expires: Start: 07-25-2024 End: 07-25-2024 Patient encounter procedure 07/25/2024 11:00 AM EST Office Visit [facility] [address] [facility] [address] [place] [address] Jordan Duncan MD 112 [facility] [address] [place] [address] (Fax) Encounter for Medicare annual wellness exam; Advance directive in chart; Encounter for screening for other disorder; Screening for alcohol problem; Morbid (severe) obesity due to excess calories ([facility]); Body mass index (BMI) 40.0-44.9, adult ([facility]) [facility] Comment on above: Encounter for Medicare annual wellness e xam; Advance directive in chart; Encounter for screening for other disorder; Screening for alcohol problem; Morbid (severe) obesity due to excess calories (CMS/HCC); Body mass index (BMI) 40.0-44.9, adult ([facility]) Start: 06-21-2024 Hemoglobin A1c measurement Diabetes: Hemoglobin A1C [facility] Start: 05-17-2024 Medicare Annual Wellness (AWV) Medicare Annual Wellness (AWV) [facility] Start: 05-15-2024 End: 05-15-2024 Patient encounter procedure 05/15/2024 10:15 AM EST Office Visit [facility] [address] [place] [address] Brody Ibrahim DPM [address] [place] [address] [facility] Start: 04-23-2024 End: 04-23-2024 Patient encounter procedure 04/23/2024 11:00 AM EST Office Visit [facility] [address] [place] [address] Brody Ibrahim DPM [address] [place] [address] [facility] Start: 04-09-2024 End: 04-09-2024 Patient encounter procedure 04/09/2024 9:30 AM EST Office Visit [facility] [address] [address] Jordan Duncan MD [address] [facility] [place] [address] [facility] Start: 03-29-2024 End: 03-29-2024 Patient encounter procedure 03/29/2024 1:00 PM EDT Office Visit [facility] [address] [facility] [place] [phone] Brody Ibrahim DPM [address] [place], [place] [phone] Arrived [facility] Comment on above: Arrived Start: 03-27-2024 End: 03-27-2024 Patient encounter procedure 03/27/2024 2:00 PM EDT Office Visit [facility] [address] [address] Jordan Duncan MD [address] [place] [address] Type 2 diabetes mellitus with diabetic polyneuropathy, [...] 03/13/2024 9:45 AM EDT Office Visit [facility] [address] [facility] [place] [phone] Brody Ibrahim DPM [address] [place], [place] [phone] Arrived [facility] Comment on above: Arrived Start: 02-05-2024 COVID-19 Vaccine () COVID-19 Vaccine () [facility] Start: 02-05-2024 Influenza vaccination Influenza Vaccine (#1) [facility] Start: 01-05-2024 Hemoglobin A1c measurement Diabetes: Hemoglobin A1C [facility] Start: 11-26-2023 Glaucoma screening Diabetes: Retinopathy Screening [facility] Start: 10-29-2023 GFR test (Diabetes, CKD 3-4, OR last GFR 15-59) GFR test (Diabetes, CKD 3-4, OR last GFR 15-59) [facility] Start: 10-26-2023 End: 10-26-2023 Patient encounter procedure 10/26/2023 Office Visit Oncology Newton Stevenson MD [address] [place] [address] [facility] Start: 10-12-2023 End: 10-12-2023 Patient encounter procedure 10/12/2023 9:30 AM EDT Office Visit [facility] [address] [place] [address] Jordan Duncan MD [address] [place] [address] [facility] Start: 09-27-2023 End: 09-27-2023 Patient encounter procedure 09/27/2023 11:00 AM EDT Procedure Visit [facility] [address] [place] [phone] Brody Ibrahim DPM [address] [facility] [place] [address] [facility] Start: 07-14-2023 Hemoglobin A1c measurement Diabetes: Hemoglobin A1C [facility] Start: 05-02-2023 Annual Wellness Visit (Medicare) Annual Wellness Visit (Medicare) [facility] Start: 10-20-2022 End: 10-20-2022 Patient encounter procedure 10/20/2022 Office Visit Oncology Newton Stevenson MD [address] [place] [address] [facility] Part [facility] Start: 09-24-2022 Hemoglobin A1c measurement A1C test (Diabetic or Prediabetic) [facility] Start: 02-04-2022 Influenza vaccination Flu vaccine (#1) [facility] Start: 11-11-2021 Urine screening for protein [facility] Start: 10-21-2021 End: 10-21-2021 Patient encounter procedure 10/21/2021 Office Visit Oncology Newton Stevenson MD [address] [place] [address] [facility] Part [facility] Start: 10-16-2021 COVID-19 Vaccine (4 - Booster for Pfizer series) COVID-19 Vaccine (4 - Booster for Pfizer series) [facility] Start: 10-14-2021 Lipid panel Lipids [facility] Start: 10-24-2019 End: 10-24-2019 Office Visit [facility] Start: 07-31-2019 End: 07-31-2019 Appointment 07/31/2019 [facility]ointment [facility] Start: 04-30-2019 End: 04-30-2019 Appointment 04/30/2019 Appointment Infusion Therapy [facility] Start: 02-04-2019 Influenza vaccination Flu vaccine (#1) [place], [place] Start: 11-26-2018 Annual Wellness Visit (AWV) Annual Wellness Visit (AWV) [facility] Start: 08-17-2017 Creatinine measurement Creatinine monitoring [facility] Work Phone: Start: 08-17-2017 Creatinine monitoring Creatinine monitoring [place], [place] Start: 08-17-2017 Potassium monitoring Potassium monitoring [place], [place] Start: 08-04-2017 A1C test (Diabetic or Prediabetic) A1C test (Diabetic or Prediabetic) [place] Start: 08-04-2017 Hemoglobin A1c measurement A1C test (Diabetic or Prediabetic) [facility] Start: 02-10-2017 Abdominal aortic aneurysm screening AAA screen [facility] Start: 02-10-2017 Pneumococcal 65+ years Vaccine (1 of 2 - PCV13) Pneumococcal 65+ years Vaccine (1 of 2 - PCV13) [place] Start: 01-29-2017 Shingles Vaccine (2 of 3) Shingles Vaccine (2 of 3) [facility] Start: 02-10-2015 Annual Wellness Visit (AWV) Annual Wellness Visit (AWV) [place] Start: 2012 Respiratory Syncytial Virus (RSV) or age 60 yrs+ (1 - Risk 60-74 years 1-dose series) Respiratory Syncytial Virus (RSV) or age 60 yrs+ (1 - Risk 60-74 years 1-dose series) [facility] Start: 02-10-2002 Colon cancer screen colonoscopy Colon cancer screen colonoscopy [place], [place] Start: 02-10-2002 Screening for malignant neoplasm of colon Colon cancer screen colonoscopy [facility] Work Phone: Start: 02-10-2002 Shingles Vaccine (1 of 2) Shingles Vaccine (1 of 2) [place], [place] Start: 02-10-1997 Screening for malignant neoplasm of colon [facility] Start: 02-10-1971 DTaP/Tdap/Td vaccine (1 - Tdap) DTaP/Tdap/Td vaccine (1 - Tdap) [facility] Start: 02-10-1971 Hepatitis B vaccine (1 of 3 - Risk 3-dose series) Hepatitis B vaccine (1 of 3 - Risk 3-dose series) [place] Start: 02-10-1970 Diabetic microalbuminuria test Diabetic microalbuminuria test [place] Start: 02-10-1970 Diabetic retinal exam Diabetic retinal exam [facility] Start: 02-10-1970 Glaucoma screening Diabetic retinal exam [facility] Start: 02-10-1970 Hepatitis C screening Hepatitis C screen [facility] Start: 02-10-1970 Urine screening for protein Diabetic Alb to Cr ratio (uACR) test [facility] Start: 1964 Depression Screen Depression Screen [facility] Start: 02-10-1963 DTaP/Tdap/Td vaccine (1 - Tdap) DTaP/Tdap/Td vaccine (1 - Tdap) [place] Start: 02-10-1962 [object Object] Diabetic foot exam [place] Start: 02-10-1962 Diabetic foot examination Diabetic foot exam [facility] Start: 02-10-1962 Diabetic retinal exam Diabetic retinal exam [facility] Start: 02-10-1962 Lipid panel [facility] Start: 02-10-1962 Lipid screen Lipid screen [facility] Start: 1952 Annual Wellness Visit (AWV) Annual Wellness Visit (AWV) [facility] Start: 1950 Hepatitis C screen Hepatitis C screen [place], [place] Start: 1952 Hepatitis C screening Hepatitis C screen [facility] Work Phone: Start: 1950 Screening for malignant neoplasm of colon [facility] End: 07-05-2024 Phlebotomy therapeutic Phlebotomy therapeutic Procedures Routine One Time for 1 Occurrences starting 07/05/2024 until 07/05/2024 [facility] Work Phone: Comment on above: One Time for 1 Occurrences starting 06/08 until 07/05/2024 Immunizations Immunization Date Immunization Notes Care Provider [facility] 03-28-2024 influenza, seasonal, injectable Brody Ibrahim DPM Work Phone: [facility] 03-28-2024 Seasonal trivalent influenza vaccine, adjuvanted, preservative free Brody Ibrahim DPM Work Phone: [facility] 03-28-2024 influenza virus vacc ine, unspecified formulation Generic Provider [facility] 02-28-2023 influenza virus vacc ine, unspecified formulation Topher SAAVED[facility] 02-28-2023 Influenza, Seasonal, Quadrivalent, Adjuvanted Brody Ibrahim DPM Work Phone: [facility] 04-16-2022 influenza virus vacc ine, unspecified formulation Topher SAAVEDRA [facility] 04-16-2022 Influenza, Seasonal, Quadrivalent, Adjuvanted Brodygarrick Ibrahim DPM Work Phone: [facility] 03-23-2022 Moderna Bivalent Simmons ster Vaccination Brody Ibrahim DPM Work Phone: [facility] 03-23-2022 Moderna SARS-CoV-2 50mcg/0.5mL Booster Brody Ibrahim DPM Work Phone: [facility] 03-23-[address] 12 Years And Older Brody Ibrahim DPM Work Phone: [facility] 03-23-2022 SARS-CoV-2 (COVID-19 ) [id number] Topher SAAVEDRA [facility] 06-18-2021 SARS-CoV-2 (COVID-19 ) mRNA BNT-162b2 vax Topher SAAVEDRA [facility] 05-06-2021 influenza virus vacc ine, unspecified formulation Topher SAAVEDRA [facility] 05-06-2021 Influenza, Seasonal, Quadrivalent, Adjuvanted Brody Ibrahim DPM Work Phone: [facility] 05-06-2021 SARS-CoV-2 (COVID-19 ) Ad26 vaccine, recombinant Topher SAAVEDRA [facility] 08-28-2020 SARS-CoV-2 (COVID-19 ) mRNA BNT-162b2 vax Topher SAAVEDRA [facility] 08-28-2020 SARS-CoV-2, Unspecified Garry Ibrahim DPM Work Phone: [facility] 08-27-2020 Pfizer Purple Cap SARS-CoV-2 Vaccination Brody Ibrahim DPM Work Phone: [facility] 08-08-2020 SARS-CoV-2 (COVID-19 ) mRNA BNT-162b2 vax Topher SAAVEDRA [facility] Comment on above: Result Comment: 2022: [id number] 08-08-2020 SARS-CoV-2, Unspecified Garry Ibrahmi DPM Work Phone: [facility] 08-07-2020 Pfizer Purple Cap SARS-CoV-2 Vaccination Brody Ibrahim DPM Work Phone: [facility] 08-04-2020 SARS-CoV-2 (COVID-19 ) Ad26 vaccine, recombinant Topherpeter SAAVEDRA [facility] 03-22-2020 influenza virus vacc ine, unspecified formulation Topher SAAVEDRA [facility] 03-22-2020 Influenza, Seasonal, Quadrivalent, Adjuvanted Brody Ibrahim DPM Work Phone: [facility] 03-06-2019 pneumococcal conjuga te vaccine, 13 valent Topher SAAVEDRA [facility] 03-05-2019 influenza virus vacc ine, unspecified formulation Topher SAAVEDRA [facility] 03-05-2019 influenza, high dose seasonal, preservative-free Brody GUTIÉRREZM Work Phone: [facility] 03-05-2019 pneumococcal polysaccharide vaccine, 23 valent Topher SAAVEDRA [facility] 03-04-2019 Influenza, High-dose Seasonal, Quadrivalent, Preservative Free Brody Ibrahim DPM Work Phone: [facility] 03-04-2019 pneumococcal polysaccharide vaccine, 23 valent Brody Ibrahim DPM Work Phone: [facility] 03-03-2018 influenza virus vacc ine, unspecified formulation Topher SAAVEDRA [facility] 03-03-2018 influenza, high dose seasonal, preservative-free Brody Ibrahim DPM Work Phone: [facility] 03-03-2018 pneumococcal conjuga te vaccine, 13 valent Topher SAAVEDRA [facility] 03-03-2018 pneumococcal polysaccharide vaccine, 23 valent Brody Ibrahim DPM Work Phone: [facility] 03-02-2018 pneumococcal conjuga te vaccine, 13 valent Brody Ibrahim DPM Work Phone: [facility] 04-06-2017 influenza virus vacc ine, unspecified formulation Topher SAAVEDRA [facility] 04-06-2017 influenza, injectabl e, quadrivalent, preservative free Brody Ibrahim DPM Work Phone: [facility] 12-04-2016 pneumococcal polysaccharide vaccine, 23 valent Topher SAAVEDRA [facility] 12-04-2016 zoster vaccine, live Topher SAAVEDRA [facility] 03-06-2016 Influenza Vaccine, unspecified formulation [facility] 03-06-2016 influenza virus vacc ine, H5N1, A/[place]/ (national stockpile) Brody Ibrahim DPM Work Phone: [facility] 03-06-2016 influenza virus vacc ine, unspecified formulation Brody Ibrahim DPM Work Phone: [facility] 03-06-2016 Influenza, High-dose Seasonal, Quadrivalent, Preservative Free Brody Ibrahim DPM Work Phone: [facility] 03-06-2016 influenza, unspecifi ed formulation Topher SAAVEDRA [facility] 01-23-2016 influenza virus vacc ine, unspecified formulation Topher SAAVEDRA [facility] 01-23-2016 influenza, injectabl e, quadrivalent, preservative free Brody Rusher DPM Work Phone: [facility] 06-06-2015 pneumococcal polysaccharide vaccine, 23 valent Topher SAAVEDRA [facility] 03-23-2014 influenza virus vacc ine, unspecified formulation Topher SAAVEDRA [facility] 03-23-2014 influenza, seasonal, injectable Brody Rusher DPM Work Phone: [facility] 04-06-2013 influenza virus vacc ine, unspecified formulation Topher SAAVEDRA [facility] 04-06-2013 influenza, seasonal, injectable Brody Rusher DPM Work Phone: [facility] 04-06-2013 zoster vaccine, live Topher SAAVEDRA [facility] 04-05-2013 zoster vaccine, live Brody Rusher DPM Work Phone: [facility] 04-21-2009 novel influenza-H1N1 -09, preservative-free, injectable Brody Rusher DPM Work Phone: [facility] Payers Date Payer Category Payer Private Health Insurance AARPat Davila mber [id number] 2022 Unknown 2017 Medicare [id number] 2017 Medicare xxxxxxxxxxx [id number] 1959 Medicare [id number] .[id number] 1959 Private Health Insurance [id number] [id number] .7.3.149919.315 1952 Unknown [id number] 2.16.840.1.705048.3.579.2 .593 1952 Unknown [id number] 2.16.840.1.002145.3.579.2 .593 1952 Unknown [id number] 2.16.840.1.875304.3.579.2 .593 1952 Unknown [id number] 2.16.840.1.690612.3.579.2 .593 1952 Unknown [id number] 2.16.840.1.257498.3.579.2 .593 1952 Unknown [id number] 2.16.840.1.517159.3.579.2 .593 1952 Unknown [id number] 2.16.840.1.418569.3.579.2 .593 1952 Unknown [id number] 2.16.840.1.608866.3.579.2 .593 1952 Unknown [id number] 2.16.840.1.705694.3.579.2 .593 1952 Unknown [id number] 2.16.840.1.473593.3.579.2 .593 1952 Unknown [id number] 2.16.840.1.723761.3.579.2 .593 1952 Unknown [id number] 2.16.840.1.139133.3.579.2 .593 1952 Unknown [id number] 2.16.840.1.939874.3.579.2 .72 1952 Unknown [id number] 2.16.840.1.839742.3.579.2 .72 1952 Unknown [id number] 2.16.840.1.926232.3.579.2 .72 1952 Unknown [id number] 2.16.840.1.974533.3.579.2 .72 1952 Unknown [id number] 2.16.840.1.093378.3.579.2 .72 1952 Unknown [id number] 2.16.840.1.578894.3.579.2 .72 1952 Unknown [id number] 2.16.840.1.511706.3.579.2 .72 1952 Unknown [id number] 2.16.840.1.388456.3.579.2 .72 1952 Unknown [id number] 2.16.840.1.169371.3.579.2 .72 1952 Unknown [id number] 2.16.840.1.166363.3.579.2 .72 1952 Unknown [id number] 2.16.840.1.040252.3.579.2 .72 1952 Unknown [id number] 2.16.840.1.601110.3.579.2 .72 1952 Unknown [id number] 2.16.840.1.749217.3.579.2 72 1952 Unknown [id number] 2.16.840.1.805715.3.579.2 .727 1952 Unknown [id number] 2.16.840.1.187979.3.579.2 .727 1952 Unknown [id number] 2.16.840.1.694785.3.579.2 .173 1952 Unknown [id number] 2.16.840.1.037853.3.579.2 .173 1952 Unknown [id number] 2.16.840.1.050463.3.579.2 .173 1952 Unknown [id number] 2.16.840.1.606025.3.579.2 .1258 1952 Unknown [id number] 2.16.840.1.240863.3.579.2 .1258 1952 Unknown [id number] 2.16.840.1.375202.3.579.2 .1258 1952 Unknown [id number] 2.16.840.1.084102.3.579.2 .1258 1952 Unknown [id number] 2.16.840.1.786627.3.579.2 .1258 1952 Unknown [id number] 2.16.840.1.454387.3.579.2 .1258 1952 Unknown [id number] 2.16.840.1.917272.3.579.2 .125 1952 Unknown [id number] 2.16.840.1.473827.3.579.2 .1258 1952 Unknown [id number] 2.16.840.1.879526.3.579.2 .1258 1952 Unknown [id number] 2.16.840.1.562633.3.579.2 .125 1952 Unknown [id number] 2.16.840.1.388645.3.579.2 .1259 1952 Unknown [id number] 2.16.840.1.668226.3.579.2 .1259 Medicare [id number] Social History Date Type Detail Facility Start: 10-18-2018 End: 12-06-2023 Tobacco smoking status NHIS Former smoker [place] Start: 08-31-1979 End: 06-06-2012 History of tobacco use Current smoker [place] Start: 10-18-2018 End: 09-18-2024 Cigarettes smoked current (pack per day) - Reported [facility] Start: 10-18-2018 End: 09-18-2024 Alcohol intake No [place] Start: 01-23-2014 End: 11-02-2023 Tobacco Comment quit smoking in 1999 [facility] Start: 1950 Sex Assigned At Not on file [place] Start: 10-18-2018 End: 11-02-2023 Alcohol intake Current non-drinker of alcohol (finding) [place] Start: 10-22-2020 End: 12-06-2023 Tobacco use and exposure Never used [facility] Start: 01-18-2022 End: 01-28-2022 Exposure to SARS-CoV-2 (event) Not sure [facility] Start: 08-31-1979 End: 06-06-2012 History of tobacco use Cigarette Smoker [facility] Work Phone: Start: 05-17-2023 End: 09-18-2024 Alcohol [...] Gender identity Identifies as male gender (finding) [facility] Functional Status Date Assessment Result Facility 09-18-2024 Patient Health Quest ionnaire 2 item (PHQ-2) [Reported] [facility] 05-21-2024 Functional Status N/A [facility] Clinical Notes 10-22-2020 to 12-03-2024 Telephone Encounter - Laisha Castaneda - 12/03/2024 8:18 AM EDTTelephone Encounter - Laisha Castaneda - 12/03/2024 8:18 AM EDTTelephone Encounter - Jordan Duncan MD - 10/18/2024 12:45 PM EDT Note Date & Type Note Facility 12-03-2024 Telephone encounter Note Bret called requesting a refill on his cyclobenzaprine (Flexeril) [facility] [place] [facility] 12-03-2024 Miscellaneous Notes Bret called requesting a refill on his cyclobenzaprine (Flexeril) [facility] [place] documented in this encounter [facility] 10-18-2024 Telephone encounter Note Reviewed in prescription sent. [facility] 10-18-2024 Miscellaneous Notes Reviewed in prescription sent. [...] is asking for these to go to [facility] in [place]. documented in this encounter [facility] 10-18-2024 Telephone encounter Note Bret called needing [...] is asking for these to go to [facility] in [place]. [facility] 09-18-2024 History of Present illness Narrative Images [...] 50 MCG (2000 UT) tablet Take by mouth cyclobenzaprine (Flexeril) [...] microalbuminuria, without long-term current use of insulin ([facility]) As above - POCT microalbumin manually resulted 4. Type 2 diabetes mellitus with diabetic polyneuropathy, without long-term current use of insulin (CMS/[facility]) Chronic problem, stable, he does think the [...] measure for HEDIS. documented in this encounter [facility] 07-25-2024 History of Present illness Narrative Images from the original note were not included. Subjective : Chief Complaint: Juan iMguel Jennings is an 74 y.o. 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 6. BMI 39.0-39.9,adult Defines the morbid obesity 7. Type 2 diabetes mellitus with diabetic polyneuropathy, without long-term current use of insulin ([facility]/HCC) Chronic problem, stable, monitored longitudinally. 8. Type 2 diabetes mellitus with diabetic microalbuminuria, without long-term current use of insulin ([facility]/HCC) Chronic problem, stable, monitored longitudinally. 9. Type 2 diabetes mellitus with foot ulcer (CODE) ([facility]) Chronic problem, stable, monitored longitudinally. Primarily managed by Podiatry 10. Non-pressure chronic ulcer of other part of unspecified foot with unspecified severity ([facility]/HCC) Chronic problem, stable, monitored longitudinally.Primarily managed by Podiatry 11. 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 Partial nontraumatic amputation of foot, left ([facility]/HCC) Chronic problem, stable, monitored longitudinally.Primarily managed by Podiatry 13. 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 (CMS/HCC) Chronic problem, stable, monitored longitudinally. Comanaged with Cardiology 14. History of myocardial infarction ([facility]/HCC) Chronic problem, stable, monitored longitudinally.Comanaged with Cardiology 15. Mixed hyperlipidemia ([facility]/HCC) Chronic problem, stable, monitored longitudinally.Comanaged with Cardiology 16. Adverse reaction to statin medication Diagnosis for exclusion from the HEDIS measures for statin use. 17. Primary open angle glaucoma of both eyes, unspecified glaucoma stage ([facility]) Managed by Ophthalmology Electronically signed by Jordan Duncan MD on July 25, 2024 documented in this encounter [facility] 07-16-2024 Note [place] Cardiology - [facility] Subjective Juan Miguel Jennings is a [...] man with prior history of CAD, s/p IL and stenting procedures in the past. He [...] the left s (more content not included)... [facility] 07-05-2024 History of Present illness Narrative [...] Denies any dizziness. documented in this encounter [facility] 06-18-2024 Telephone encounter Note Prescription sent [facility] 06-18-2024 Miscellaneous Notes Prescription sent Bret left a message requesting a refill on his Famotidine to [facility] in [place]. documented in this encounter [facility] 06-18-2024 Telephone encounter Note Bret left a message requesting a refill on his Famotidine to [facility] in [place]. [facility] 06-08-2024 Note Application for [facility] Safety [facility] filled out for patient. Requires patient signature. Will notify Cardiology lab support tech to coordinate signature by patient. Application uploaded to media. Patient will come to Cardiology clinic to sign. Iron Bess PharmD Cardiology Outpatient Clinical Pharmacist 06/14/24 [facility] 06-08-2024 Note Contacted patient to discuss lipids management. Reviewed mechanism of action, side effects, and administration of Repatha with patient; pt agreeable to start. Will send RX to assess costs. Of note, pt may qualify for patient assistance [employer]. Will fill out paperwork and send to Cardiology to assist in obtaining signature and income documents. Iron Bess PharmD Cardiology Outpatient Clinical Pharmacist 06/11/24 [facility] 06-08-2024 Note PharmD Cardiology Co nsult - Lipids Provider: Dr. Huddleston Department: Cardiology Juan Miguel Jennings is a 74 y.o. male with PMH of CAD s/p IL and stents, HTN, HLD, MO w/ CPAP, [...] Bess PharmD Cardiology Outpatient Clinical Pharmacist 06/11/24 [facility] 05-21-2024 Hospital Discharge instructions Patient Education [...] your health care provider. General instructions Take xfqg-eck-loojghw and prescription medicines only as told by [...] provider. Document Revised: 02/09/2021 Document Reviewed: 02/09/2021 [email or web address] Patient Education 2023 Analiza. Follow Up Care 02/27/2024 09:12:26 With:KERI NOLASCO, Topher Ordoñez, URL Address: [facility] [address] , [place] [address]- When: Unknown [facility] 05-21-2024 Evaluation + Plan note Diagnostic Tests PendingTestosterone Level Total 05/21/24CBC w/ Auto Diff 05/21/24 [facility] 05-21-2024 Note Patient Education Obstetrics and [...] health care provider. General instructions ??? Take gbed-ccm-qqaxlfw and prescription medicines only as told by [...] drink, and whe (more content not included)... [facility] 05-15-2024 History of Present illness Narrative Images [...] Brody Ibrahim DPM documented in this encounter [facility] 05-15-2024 Instructions Brody Ibrahim DPM - 05/15/2024 10:15 AM EST As noted documented in this encounter [facility] 05-02-2024 Note Cardiovascular Medic [facility] SUBJECTIVE Chief Complaint Patient presents with Coronary Artery Disease Hypertension Juan Miguel Jennings is a 74 y.o. male here for follow-up. HPI PMHx: CAD s/p IL and stenting, HTN, HLD, MO and wears [...] Rfl: Physical Exa (more content not included)... [facility] 05-02-2024 Note Patient here for 1 [...] All other systems reviewed and are negative. [facility] 04-23-2024 History of Present illness Narrative Images from the original note were not included. Subjective Patient ID: Juan Miguel Jennings is a 74 y.o. 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 OTHER SURGICAL HISTORY 09/30/2022 Dorsal Natasha, RADHA Saavedra TOTAL KNEE ARTHROPLASTY Right 2014 [...] Measurements obtained in the weight-bearing position utilizing Brannock device. Foam impressions obtained simulated weight-bearing. Patient [...] Brody Ibrahim DPM documented in this encounter [facility] 03-29-2024 Instructions Brody Ibrahim DPM - 03/29/2024 1:00 PM EDT As noted documented in this encounter [facility] 03-27-2024 History of Present illness Narrative [...] with Hgb A1C. Also this is a srwe-ck-gvvz visit for consideration for diabetic shoes. Patient [...] polyneuropathy, without long-term current use of insulin ([facility]/HCC) (Primary) Chronic problem, stable, to goal. Patient has multiple podiatric issues. The forms from Podiatry were reviewed. Patient's feet were examined. I concur with the forms from Podiatry. Diabetic shoes are medically indicated. I certify that I had a tvzv-ha-zpzs encounter with this patient at todays office visit. Due to this medical condition the patient requires DME. I certify that based on my findings The DME ordered is medically necessary for this patient. This has been discussed with the patient and/or their sales representative business courses and mutually agreed upon. See the scanned [...] use of insulin (CMS/HCC) Chronic problem, stable, to goal. 9. Microalbuminuria [...] stratification for cardiovascular disease. 10. Essential hypertension ([facility]) In prescribing a renewal to [...] changes as able documented in this encounter [facility] 03-13-2024 History of Present illness Narrative Images from the original note were not included. Subjective Patient ID: Juan Miguel Jennings is a 74 y.o. male who presents for FUV (Juan Miguel Jennings is a 73 y.o. male who presents for Foot Callouses. PCP: Dr. Duncan LV 10/27/23, A1C: 6.3 (10/04), BS: 132 SS: [...] History: Procedure Laterality Date BACK SURGERY 2010 Arnold Razaedo CATARACT EXTRACTION Left 2019 [facility] OTHER SURGICAL [...] Brody Ibrahim DPM documented in this encounter [facility] 03-13-2024 Instructions Brody Ibrahim DPM - 03/13/2024 9:45 AM EDT As noted documented in this encounter [facility] 12-05-2023 Hospital Discharge instructions Patient Education [...] therapy. Follow these instructions at home: Take vlif-rqm-hcmgmpd and prescription medicines only as told by [...] provider. Document Revised: 01/22/2021 Document Reviewed: 01/22/2021 [email or web address] Patient Education 2022 Analiza. Follow Up Care 12/05/2023 07:35:26 With:KERI NOLASCO, Topher Ordoñez, URL Address: [facility] [address] [place] [address]- [phone] When: Unknown [facility] [place] 12-05-2023 Note Patient Education Urology Hypogonadism, Male [...] Follow these instructions at home: ? Take bpsf-add-zceliyi and prescription medicines only as told by [...] Revised: (more content not included)... [facility] 11-07-2023 Hospital Discharge instructions Follow Up Care 11/07/2023 08:41:09 With:KERI NOLASCO, Topher Ordoñez, URL Address: [facility] [address], [place] [address] [phone] When: Unknown [facility] 07-19-2023 History of Present illness Narrative Images [...] May 2023; effectively healed following treatment at [facility]. Currently relates no bleeding or [...] OTHER SURGICAL HISTORY 09/30/2022 Dorsal Slit, Saavedra, [facility] TOTAL KNEE ARTHROPLASTY Right 2014 Alexsander Brennan TOTAL KNEE ARTHROPLASTY Left 05/25/[address] HENSON Family History Family History Problem Relation Name Age of Onset Heart disease Mother Diabetes Mother Heart disease Father Diabetes Brother Colon cancer Brother Objective Physical Exam General assessment. Alert and oriented. Pleasant disposition. Presents wearing current Dr. Gruber therapeutic footwear with custom orthoses. Vascular: Pedal pulses /4. CFT remains brisk on digits. Unremarkable for [...] with wound right foot; effectively managed at [facility] wound care center. Care plan: [...] Brody Ibrahim DPM documented in this encounter [facility] 07-19-2023 Instructions Brody Ibrahim DPM - 07/19/2023 10:30 AM EST As noted documented in this encounter [facility] 06-20-2023 Hospital Discharge instructions Patient Education [...] therapy. Follow these instructions at home: Take wuyx-fue-nzihcol and prescription medicines only as told by [...] provider. Document Revised: 01/22/2021 Document Reviewed: 01/22/2021 [email or web address] Patient Education 2022 Analiza. Follow Up Care 02/08/2023 12:23:35 With:KERI NOLASCO, Topher Ordoñez, URL Address: [facility] [address] , [place] [address]- [phone] When: Unknown Comments:6 mos w/ PSA and T level (pt to also get PSA now) [facility] [place] 11-05-2022 Hospital Discharge instructions Patient Education 11/05/2022 [...] urethra. Follow these instructions at home: Take cujb-pmg-letswtk and prescription medicines only as told by [...] provider. Document Revised: 12/09/2021 Document Reviewed: 12/09/2021 [email or web address] Patient Education 2022 Analiza. Follow Up Care 05/17/2022 10:46:35 With:KERI NOLASCO, Topher Ordoñez, URL Address: [facility] [address] , [place] [address]- When: Unknown [facility] [address] [...] see for visit documented in this encounter [facility] Work Phone: 09-15-2022 Note EXAM: XR CHEST 2 V HISTORY: Pre-surgery evaluation COMPARISON: None. TECHNIQUE: PA and lateral views of the chest. FINDINGS: The cardiomediastinal silhouette is normal. No focal consolidation is identified. There is no pneumothorax. No pleural effusion is noted. The osseous structures are intact. IMPRESSION: No acute cardiopulmonary process. Electronically authenticated by: DARRIUS BOLTON Date: 2022-09-15 12:26 [facility] 06-18-2022 Hospital Discharge instructions Patient Education [...] urethra. Follow these instructions at home: Take pajk-hsg-etwzzzu and prescription medicines only as told by [...] 05/23/2006 Document Revised: 04/17/2019 Document Reviewed: 06/27/2017 [email or web address] Patient Education 2019 Analiza. Follow Up Care 06/14/2022 09:33:13 With:KERI NOLASCO, Topher Ordoñez, URL Address: [address] [place], [place] [id number]- When: Unknown [facility] [address] [...] urethra. Follow these instructions at home: Take plkl-gre-oxvcrfl and prescription medicines only as told by [...] 05/23/2006 Document Revised: 04/17/2019 Document Reviewed: 06/27/2017 [email or web address] Patient Education 2020 Analiza. Follow Up Care 04/21/2022 09:42:50 With:KERI NOLASCO, Topher Ordoñez, URL Address: [facility] [address] , [place] [address]- When: Unknown [facility] [address] [...] by: BRODY PAYAN Date: 2022-03-23 06:26 [facility] 02-01-2022 Hospital Discharge instructions Patient Education [...] urethra. Follow these instructions at home: Take yhmf-abd-cakxutd and prescription medicines only as told by [...] 05/23/2006 Document Revised: 04/17/2019 Document Reviewed: 06/27/2017 [email or web address] Patient Education 2020 Analiza. Follow Up Care 08/03/2021 15:20:11 With:KERI NOLASCO, Topher Ordoñez, URL Address: [address] [place] [address]- When: [facility] History of Present illness Narrative 1225 Patient arrives ambulating from Dr mraie for phlebotomy. No complaints at this time. [...] ambulating without complaints documented in this encounter [employer] Phone: Evaluation + Plan note Future Appointments Appointment Date:09/28/2021 09:00:00 AM Scheduled Provider: Location:[facility] [place] Appointment Type:URO Nurse Visit Appointment Date:02/01/2022 09:45:00 AM Scheduled Provider:Topher SAAVEDRA MD Location:[facility] [place] Appointment Type:URO Office Visit [facility] Evaluation + Plan note Future Appointments Appointment Date:10/26/2021 09:00:00 AM Scheduled Provider: Location:[facility] [place] Appointment Type:URO Nurse Visit Appointment Date:02/01/2022 09:45:00 AM Scheduled Provider:Topher SAAVEDRA MD Location:[facility] [place] Appointment Type:URO Office Visit [facility] Evaluation + Plan note Future Appointments Appointment Date:11/23/2021 09:00:00 AM Scheduled Provider: Location:[facility] [place] Appointment Type:URO Nurse Visit Appointment Date:02/01/2022 09:45:00 AM Scheduled Provider:Topher SAAVEDRA MD [facility] Type:URO Office Visit [facility] Evaluation + Plan note Future Appointments Appointment Date:12/21/2021 09:00:00 AM Scheduled Provider: Location:[facility] [place] Appointment Type:URO Nurse Visit Appointment Date:02/01/2022 09:45:00 AM Scheduled Provider:Topher SAAVEDRA MD [facility] Appointment Type:URO Office Visit [facility] Evaluation + Plan note Future Appointments Appointment Date:02/01/2022 09:45:00 AM Scheduled Provider:Topher SAAVEDRA MD Location:[facility] [place] Appointment Type:URO Office Visit Diagnostic Tests PendingTestosterone Level Total 12/21/21 [facility] Evaluation + Plan note Future Appointments Appointment Date:03/01/2022 09:30:00 AM Scheduled Provider: Location:[facility] [place] Appointment Type:URO Nurse Visit Diagnostic Tests PendingTestosterone Level Total 04/06/22PSA Total 03/06/22 [facility] Evaluation + Plan note Future Appointments Appointment Date:03/31/2022 08:15:00 AM Scheduled Provider: Location:[facility] Appointment Type:URO Nurse Visit [facility] Evaluation + Plan note Future Appointments Appointment Date:04/21/2022 09:15:00 AM Scheduled Provider: Location:[facility] Appointment Type:URO Nurse Visit [facility] Evaluation + Plan note Future Appointments Appointment Date:05/19/2022 08:00:00 AM Scheduled Provider:Silvano NOLASCO, Mandy Husain Location:[facility] Appointment Type:URO Office Visit Diagnostic Tests PendingPSA Total 04/16/22Testosterone Level Total 04/16/22 [facility] Evaluation + Plan note Future Appointments Appointment Date:06/14/2022 09:00:00 AM Scheduled Provider: Location:[facility] Appointment Type:URO Nurse Visit Appointment Date:11/15/2022 08:45:00 AM Scheduled Provider:Topher SAAVEDRA MD Location:[facility] Appointment Type:URO Office Visit Diagnostic Tests PendingPSA Total 05/17/22Testosterone Level Total 05/17/22 [facility] Evaluation + Plan note Future Appointments Appointment Date:09/06/2022 09:00:00 AM Scheduled Provider: Location:[facility] Appointment Type:URO Nurse Visit Appointment Date:11/15/2022 08:45:00 AM Scheduled Provider:Topher SAAVEDRA MD Location:[facility] Appointment Type:URO Office Visit [facility] Evaluation + Plan note Future Appointments Appointment Date:10/05/2022 09:00:00 AM Scheduled Provider: Location:[facility] [place] Appointment Type:URO Nurse Visit Appointment Date:10/29/2022 08:45:00 AM Scheduled Provider:Topher SAAVEDRA MD Location:[facility] [place] Appointment Type:URO Office Visit Appointment Date:11/05/2022 09:45:00 AM Scheduled Provider:Topher SAAVEDRA MD Location:[facility] [place] Appointment Type:URO Office Visit [facility] Evaluation + Plan note Future Appointments Appointment Date:11/05/2022 09:45:00 AM Scheduled Provider:Topher SAAVEDRA MD Location:[facility] [place] Appointment Type:URO Office Visit [facility] Evaluation + Plan note Future Appointments Appointment Date:12/03/2022 09:15:00 AM Scheduled Provider: [facility] Appointment Type:URO Nurse Visit Diagnostic Tests PendingTestosterone Level Total 11/05/22PSA Total 11/05/22 [facility] Evaluation + Plan note Future Appointments Appointment Date:01/03/2023 08:15:00 AM Scheduled Provider: Location:[facility] [place] Appointment Type:URO Nurse Visit [facility] Evaluation + Plan note Future Appointments Appointment Date:01/31/2023 08:45:00 AM Scheduled Provider: Location:[facility] [place] Appointment Type:URO Nurse Visit [facility] Evaluation + Plan note Future Appointments Appointment Date:03/07/2023 08:45:00 AM Scheduled Provider: Location:[facility] [place] Appointment Type:URO Nurse Visit Appointment Date:04/04/2023 08:45:00 AM Scheduled Provider: Location:[facility] [place] Appointment Type:URO Nurse Visit Appointment Date:05/02/2023 08:45:00 AM Scheduled Provider: Location:[facility] [place] Appointment Type:URO Nurse Visit Appointment Date:05/27/2023 09:45:00 AM Scheduled Provider:Topher SAAVEDRA MD Location:[facility] Appointment Type:URO Office Visit [facility] Evaluation + Plan note Future Appointments Appointment Date:05/02/2023 08:45:00 AM Scheduled Provider: Location:[facility] Appointment Type:URO Nurse Visit Appointment Date:06/20/2023 10:30:00 AM Scheduled Provider:Topher SAAVEDRA MD Location:[facility] Appointment Type:URO Office Visit [facility] Evaluation + Plan note Future Appointments Appointment Date:06/20/2023 10:30:00 AM Scheduled Provider:Topher SAAVEDRA MD Location:[facility] Appointment Type:URO Office Visit Diagnostic Tests PendingTestosterone Level Total 05/09/23 [facility] Evaluation + Plan note Future Appointments Appointment Date:07/18/2023 09:30:00 AM Scheduled Provider: Location:[facility] Appointment Type:URO Nurse Visit Diagnostic Tests PendingPSA Total 06/20/23Testosterone Level Total 06/20/23 [facility] [employer] Evaluation + Plan note Future Appointments Appointment Date:08/15/2023 10:00:00 AM Scheduled Provider: Location:[facility] Appointment Type:URO Nurse Visit [facility] Evaluation + Plan note Future Appointments Appointment Date:09/09/2023 08:30:00 AM Scheduled Provider: Location:[facility] Appointment Type:URO Nurse Visit [facility] Evaluation + Plan note Future Appointments Appointment Date:10/07/2023 08:30:00 AM Scheduled Provider: Location:[facility] Appointment Type:URO Nurse Visit [facility] Evaluation + Plan note Future Appointments Appointment Date:11/07/2023 09:00:00 AM Scheduled Provider: Location:[facility] Appointment Type:URO Nurse Visit [facility] Evaluation + Plan note Future Appointments Appointment Date:12/05/2023 10:45:00 AM Scheduled Provider:Topher SAAVEDRA MD Location:[facility] Appointment Type:URO Office Visit [facility] Evaluation + Plan note Future Appointments Appointment Date:01/02/2024 09:00:00 AM Scheduled Provider: Location:[facility] Appointment Type:URO Nurse Visit Diagnostic Tests PendingTestosterone Level Total 12/05/23emoglobin 12/05/23 [facility] Evaluation + Plan note Future Appointments Appointment Date:01/02/2024 09:00:00 AM Scheduled Provider: Location:[facility] Appointment Type:URO Nurse Visit [facility] Evaluation + Plan note Future Appointments Appointment Date:02/27/2024 09:00:00 AM Scheduled Provider: Location:[facility] Appointment Type:URO Nurse Visit [facility] Evaluation + Plan note Future Appointments Appointment Date:03/27/2024 09:00:00 AM Scheduled Provider: Location:[facility] [place] Appointment Type:URO Nurse Visit Appointment Date:04/23/2024 09:30:00 AM Scheduled Provider: Location:[facility] Appointment Type:URO Nurse Visit Appointment Date:05/21/2024 10:45:00 AM Scheduled Provider:Topher SAAVEDRA MD [facility] Appointment Type:URO Office Visit [facility] Evaluation + Plan note Future Appointments Appointment Date:04/23/2024 09:30:00 AM Scheduled Provider: Location:[facility] [place] Appointment Type:URO Nurse Visit Appointment Date:05/21/2024 10:45:00 AM Scheduled Provider:Topher SAAVEDRA MD Location:[facility] Appointment Type:URO Office Visit [facility] [employer] Evaluation + Plan note Future Appointments Appointment Date:05/08/2024 09:00:00 AM Scheduled Provider: Location:[facility] Appointment Type:URO Nurse Visit Appointment Date:05/21/2024 10:45:00 AM Scheduled Provider:Topher SAAVEDRA MD Location:[facility] Appointment Type:URO Office Visit [facility] [place] [employer] Evaluation note Diagnosis Polycythemia- Primary Polycythemia vera documented in this encounter [employer] Phone: evaluation note* Diagnosis Polycythemia- Primary Polycythemia vera documented in this encounter [facility] [employer] Phone: evaluation note* Diagnosis Dermatophytosis of nail- Primary Dystrophic nail Other specified disease of nail Diabetic polyneuropathy associated with type 2 diabetes mellitus ([facility] [facility] Nontraumatic amputation of foot, right ([facility]) Nontraumatic amputation of foot, left ([facility]) Acquired keratoderma documented in this encounter [facility]* Diagnosis Acquired keratoderma- Primary Diabetic polyneuropathy associated with type 2 diabetes mellitus ([facility]) Nontraumatic amputation of foot, left ([facility]) Nontraumatic amputation of foot, right ([facility]) documented in this encounter [facility]* Diagnosis Type 2 diabetes mellitus with diabetic polyneuropathy, without long-term current use of insulin ([facility])- Primary Acquired hallux malleus of left foot Acquired hammer toes of both feet Foot callus Corns and callosities Partial nontraumatic amputation of right foot ([facility]) Partial nontraumatic amputation of foot, left ([facility]) Venous stasis dermatitis of both lower extremities Type 2 diabetes mellitus with diabetic microalbuminuria, without long-term current use of insulin ([facility]) Microalbuminuria Proteinuria Essential hypertension (CMS/HCC) Unspecified essential hypertension Mixed hyperlipidemia (CMS/HCC) Mixed hyperlipidemia Adverse reaction to statin medication Former smoker Personal history of tobacco use, presenting hazards to health Morbid obesity ([facility]) Morbid obesity documented in this encounter [facility]* Diagnosis Diabetic polyneuropathy associated with type 2 diabetes mellitus (CMS/HCC)- Primary Nontraumatic amputation of foot, left (CMS/HCC) Nontraumatic amputation of foot, right ([facility]) documented in this encounter [facility]* Diagnosis Diabetic polyneuropathy associated with type 2 diabetes mellitus ([facility])- Primary Nontraumatic amputation of foot, left (CMS/HCC) Nontraumatic amputation of foot, right ([facility]) documented in this encounter [facility]* Diagnosis Dyspepsia Dyspepsia and other specified disorders of function of stomach documented in this encounter [facility]* Diagnosis Polycythemia- Primary Polycythemia vera [facility] Diagnosis Encounter for Medicare annual wellness exam- Primary Advance directive in chart Encounter for screening for other disorder Screening for alcohol problem Screening for alcoholism Morbid (severe) obesity due to excess calories ([facility]) BMI 39.0-39.9,adult Type 2 diabetes mellitus with diabetic polyneuropathy, without long-term current use of insulin ([facility]) Type 2 diabetes mellitus with diabetic microalbuminuria, without long-term current use of insulin ([facility]) Type 2 diabetes mellitus with foot ulcer (CODE) ([facility]) Non-pressure chronic ulcer of other part of unspecified foot with unspecified severity ([facility]) Partial nontraumatic amputation of right foot ([facility]) Partial nontraumatic amputation of foot, left ([facility]) 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 ([facility]) History of myocardial infarction (CMS/HCC) Mixed hyperlipidemia ([facility]) Mixed hyperlipidemia Adverse reaction to statin medication Primary open angle glaucoma of both eyes, unspecified glaucoma stage ([facility]) documented in this encounter [facility]* Diagnosis Dyspepsia Dyspepsia and other specified disorders of function of stomach Essential hypertension (CMS/HCC) Unspecified essential hypertension Microalbuminuria Proteinuria Mixed hyperlipidemia ([facility]) Mixed hyperlipidemia Type 2 diabetes mellitus with diabetic microalbuminuria, without long-term current use of insulin ([facility]) Type 2 diabetes mellitus with diabetic polyneuropathy, without long-term current use of insulin ([facility]) documented in this encounter [facility]* Diagnosis Essential hypertension ([facility])- Primary Unspecified essential hypertension Microalbuminuria Proteinuria Type 2 diabetes mellitus with diabetic microalbuminuria, without long-term current use of insulin ([facility]) Type 2 diabetes mellitus with diabetic polyneuropathy, without long-term current use of insulin ([facility]) Mixed hyperlipidemia ([facility]) Mixed hyperlipidemia Adverse reaction to statin medication documented in this encounter [facility]* Diagnosis Lumbar paraspinal muscle spasm Other symptoms referable to back Dyspepsia Dyspepsia and other specified disorders of function of stomach Type 2 diabetes mellitus with diabetic polyneuropathy, without long-term current use of insulin ([facility]) documented in this encounter [facility]* Diagnosis Lumbar paraspinal muscle spasm Other symptoms referable to back documented in this encounter [facility] Narrative No data available for this section [facility] Hospital Discharge instructions No data available for this section [facility] progress note No data available for this section [facility] DoNanza Summary Purpose Family History No Family History [...] Documents on File Type Date Recorded Patient Aquatics Director Expl anation Advance Directives and Livin g Will Advance Directives and Livin g Will 08/31/2013 9:46 AM Power of Nuclear Power Reactor Operator Power of Nuclear Power Reactor Operator 08/31/2013 9:46 AM Latest Code Status on File Code Status Date Activated Date Inactivated Comments Full Code 08/06/2016 9:06 AM 08/09/2016 5:53 PM Full Code 08/04/2016 9:28 PM 08/06/2016 9:06 AM Full Code 05/15/2015 12:42 PM 05/19/2015 6:52 PM Full Code 05/12/2015 11:22 AM 05/15/2015 12:42 PM Full Code 05/13/2014 2:36 PM 05/13/2014 9:20 PM Documents on File Type Date Recorded Patient Aquatics Director Expl anation ACP-Advance Directive ACP-Power of Nuclear Power Reactor Operator ACP-Advance Directive 08/31/2013 9:46 AM ACP-Power of Nuclear Power Reactor Operator 08/31/2013 9:46 AM Documents on File Type Date Recorded Patient Aquatics Director Expl anation ACP-Advance Directive 08/31/2013 9:46 AM ACP-Power of Nuclear Power Reactor Operator 08/31/2013 9:46 AM Latest Code Status [...] Documents on File Type Date Recorded Patient Aquatics Director Expl anation Advance Directives and Living Will 11/20/2019 2018-05-09 Living Wi ll Advance Directives and Living Will 11/20/2019 2018-05-09 Power Of Nuclear Power Reactor Operator Documents on File Type Date Recorded Patient Aquatics Director Expl anation ACP-Power of Nuclear Power Reactor Operator 08/31/2013 9:46 AM ACP-Advance Directive 08/31/2013 [...] section and content) DATE CREATED AUTHOR 11/24/2017 [facility] DATE CREATED AUTHOR AUTHOR'S ORGANIZ ATION 03/15/2018 [facility] DATE CREATED AUTHOR AUTHOR'S ORGANIZ ATION 07/01/2021 [facility] DATE CREATED AUTHOR AUTHOR'S ORGANIZ ATION 09/26/2021 [facility] dical Specialist DATE CREATED AUTHOR AUTHOR'S ORGANIZ ATION 11/13/2022 [facility] DATE CREATED AUTHOR AUTHOR'S ORGANIZ ATION 06/03/2024 [facility] DATE CREATED AUTHOR AUTHOR'S ORGANIZ ATION 07/07/2024 [facility] DATE CREATED AUTHOR AUTHOR'S ORGANIZ ATION 07/17/2024 [facility] DATE CREATED AUTHOR AUTHOR'S ORGANIZ ATION 09/14/2024 [facility] DATE CREATED AUTHOR AUTHOR'S ORGANIZ ATION 09/19/2024 [facility] dical Specialists EPIC DATE CREATED AUTHOR AUTHOR'S ORGANIZ ATION 10/13/2024 Pathology Gabriel welch [facility] Care Team (unrecognized sect ion and content) Spray Gun Striper Relationship Specialty Start Date End Date Jordan Duncan MD PCP - General 07/25/19 Spray Gun Striper Relationship Specialty Start Date End Date Jordan Duncan MD [address] [place], [place] [phone] PCP - General Family Medicine 10/25/22 Mitch Mello MD [address] [place] [address] Referring Physician Cardiology 05/17/23 Jr. Anuja Henson DO [address] [address] Referring Physician Orthopaedic Surgery 05/17/23 Brody Ibrahim DPM [address] [place] [address] Referring Physician Podiatry 05/17/23 Spray Gun Striper Relationship Specialty Start Date End Date Jordan Duncan MD [address] [place], [place] [phone] PCP - General Family Medicine 10/25/22 Mitch Mello MD [address] [place] [address] Referring Physician Cardiology 05/17/23 Jr. Anuja Henson DO [address] [place] [facility] [address] [place] [address] Referring Physician Orthopaedic Surgery 05/17/23 Brody Ibrahim DPM [address] [facility] [place] [address] Referring Physician Podiatry 05/17/23 Spray Gun Striper Relationship Specialty Start Date End Date Jordan Duncan MD [address] [place] [address] (Fax) PCP - General Family Medicine 10/25/22 Jordan Duncan MD [address] [place] [phone] (Fax) PCP - ACO Reach 08/05/23 Mitch Mello MD [address] [place] [address] Referring Physician Cardiology 05/17/23 Jr. Anuja Henson DO [address] [address] Referring Physician Orthopaedic Surgery 05/17/23 Brody Ibrahim DPM [address] [place] [address] Referring Physician Podiatry 05/17/23 Spray Gun Striper Relationship Specialty Start Date End Date Jordan Duncan MD [address] [place] [address] (Fax) PCP - General Family Medicine 10/25/22 Jordan Duncan MD [address] [place] [address] PCP - ACO Reach 08/05/23 Mitch Mello MD [address] [place] [address] Referring Physician Cardiology 05/17/23 Jr. Anuja Henson DO [address] [place] [address] [address] Referring Physician Orthopaedic Surgery 05/17/23 Brody Ibrahim DPM [address] [place] [address] Referring Physician Podiatry 05/17/23 Spray Gun Striper Relationship Specialty Start Date End Date Jordan Duncan MD [address] [place] [address] PCP - General Family Medicine 10/25/22 Jordan Duncan MD [address] [place] [address] PCP - ACO Reach 08/05/23 Mitch Mello MD [address] [place] [phone] Referring Physician Cardiology 05/17/23 Jr. Anuja Henson DO [address] [place] [address] [address] Referring Physician Orthopaedic Surgery 05/17/23 Brody Ibrahim DPM [address] [place] [address] Referring Physician Podiatry 05/17/23 Spray Gun Striper Relationship Specialty Start Date End Date Jordan Duncan MD [address] [place] [address] (Fax) PCP - General Family Medicine 10/25/22 Jordan Duncan MD [address] [place] [address] PCP - ACO Reach 08/05/23 Mitch Mello MD [address] [place] [phone] Referring Physician Cardiology 05/17/23 Jr. Anuja Henson DO [address] [place] [address] Referring Physician Orthopaedic Surgery 05/17/23 Brody Ibrahim DPM [address] [place] [address] Referring Physician Podiatry 05/17/23 Spray Gun Striper Relationship Specialty Start Date End Date Jordan Duncan MD [address] [place] [address] PCP - General Family Medicine 10/25/22 Jordan Duncan MD [address] [place] [address] (Fax) PCP - ACO Reach 08/05/23 Mitch Mello MD [address] [place] [address] Referring Physician Cardiology 05/17/23 Jr. Anuja Henson DO [address] [facility] [address] [place] [address] Referring Physician Orthopaedic Surgery 05/17/23 Brody Ibrahim DPM [address] [place] [address] Referring Physician Podiatry 05/17/23 Spray Gun Striper Relationship Specialty Start Date End Date Jordan Duncan MD [address] [place] [phone] (Fax) PCP - General Family Medicine 10/25/22 Jordan Duncan MD [address] [place] [address] (Fax) PCP - ACO Reach 08/05/23 Mitch Mello MD [address] [place] [address] Referring Physician Cardiology 05/17/23 Jr. Anuja Henson DO [address] [facility] [address] [place] [address] Referring Physician Orthopaedic Surgery 05/17/23 Brody Ibrahim DPM [address] [place] [address] Referring Physician Podiatry 05/17/23 Spray Gun Striper Relationship Specialty Start Date End Date Jordan Duncan MD [address] [place] [address] (Fax) PCP - General Family Medicine 10/25/22 Jordan Duncan MD [address] [place] [address] PCP - ACO Reach 08/05/23 Mitch Mello MD [address] [place] [address] Referring Physician Cardiology 05/17/23 Jr. Anuja Henson DO [address] [place] [facility] [address] [place] [address] Referring Physician Orthopaedic Surgery 05/17/23 Brody Ibrahim DPM [address] [place] [address] [place], [place] [phone] Referring Physician Podiatry 05/17/23 Spray Gun Striper Relationship Specialty Start Date End Date Jordan Duncan MD [address] [place] [address] (Fax) PCP - General Family Medicine 10/25/22 Jordan Duncan MD [address] [place] [address] PCP - ACO Reach 08/05/23 Mitch Mello MD [address] [place] [phone] Referring Physician Cardiology 05/17/23 Jr. Anuja Henson DO [address] [place] [address] [address] Referring Physician Orthopaedic Surgery 05/17/23 Brody Ibrahim DPM [address] [place], [place] [phone] Referring Physician Podiatry 05/17/23 Spray Gun Striper Relationship Specialty Start Date End Date Jordan Duncan MD [address] [place] [address] (Fax) PCP - General Family Medicine 10/25/22 Jordan Duncan MD [address] [place] [address] (Fax) PCP - ACO Reach 08/05/23 Mitch Mello MD [address] [place] [address] Referring Physician Cardiology 05/17/23 Jr. Anuja Henson DO [address] [place] [address] Referring Physician Orthopaedic Surgery 05/17/23 Brody Ibrahim DPM [address] [place] [address] Referring Physician Podiatry 05/17/23 Spray Gun Striper Relationship Specialty Start Date End Date Jordan Duncan MD [address] [place] [address] (Fax) PCP - General Family Medicine 10/25/22 Jordan Duncan MD [address] [place] [address] PCP - ACO Reach 08/05/23 Mitch Mello MD [address] [place] [address] Referring Physician Cardiology 05/17/23 Jr. Anuja Henson DO [address] [place] [address] Referring Physician Orthopaedic Surgery 05/17/23 Brody Ibrahim DPM [address] [facility] [place] [address] Referring Physician Podiatry 05/17/23 Spray Gun Striper Relationship Specialty Start Date End Date Jordan Duncan MD [address] [place] [address] (Fax) PCP - General Family Medicine 10/25/22 Jordan Duncan MD [address] [place] [address] (Fax) PCP - ACO Reach 08/05/23 Mitch Mello MD [address] [place] [address] Referring Physician Cardiology 05/17/23 Jr. Anuja Henson DO [address] [facility] [address] [place] [address] Referring Physician Orthopaedic Surgery 05/17/23 Brody Ibrahim DPM [address] [facility] [place] [address] Referring Physician Podiatry 05/17/23 Spray Gun Striper Relationship Specialty Start Date End Date Jordan Duncan MD (Fax) PCP - General 07/25/19 Spray Gun Striper Relationship Specialty Start Date End Date Jordan Duncan MD [address] [place] [address] (Fax) PCP - General Family Medicine 10/25/22 Jordan Duncan MD [address] [place] [address] (Fax) PCP - ACO Reach 08/05/23 Mitch Mello MD [address] [place] [address] Referring Physician Cardiology 05/17/23 Jr. Anuja Henson DO [address] [place] [address] Referring Physician Orthopaedic Surgery 05/17/23 Brody Ibrahim DPM [address] [place] [address] Referring Physician Podiatry 05/17/23 Spray Gun Striper Relationship Specialty Start Date End Date Jordan Duncan MD [address] [place] [address] (Fax) PCP - General Family Medicine 10/25/22 Jordan Duncan MD [address] [place] [address] (Fax) PCP - ACO Reach 08/05/23 Jr. Anuja Henson DO [address] [place] [address] Referring Physician Orthopaedic Surgery 05/17/23 Brody Ibrahim DPM [address] [place] [address] Referring Physician Podiatry 05/17/23 Anuja Huddleston MD [address] [place] [address] Referring Physician Family Medicine 07/25/24 Topher Saavedra MD [address] [place] [address] Referring Physician Urology 07/25/24 Kitty Edmond OD [address] [place] [address] [place] [address] Referring Physician Optometry 07/25/24 Spray Gun Striper Relationship Specialty Start Date End Date Jordan Duncan MD [address] [place] [address] PCP - General Family Medicine 10/25/22 Jordan Duncan MD [address] [place] [address] PCP - ACO Reach 08/05/23 Jr. Anuja Henson DO [address] [place] [address] Referring Physician Orthopaedic Surgery 05/17/23 Brody Ibrahim DPM [address] [facility] [place] [address] Referring Physician Podiatry 05/17/23 Anuja Huddleston MD [address] [place] [phone] Referring Physician Family Medicine 07/25/24 Topher Saavedra MD [address] [place] [phone] Referring Physician Urology 07/25/24 Kitty Edmond OD [address] [place] [address] Referring Physician Optometry 07/25/24 Spray Gun Striper Relationship Specialty Start Date End Date Jordan Duncan MD [address] [place] [address] PCP - General Family Medicine 10/25/22 Jordan Duncan MD [address] [place] [address] PCP - ACO Reach 08/05/23 Jr. Anuja Henson DO [address] [place] [address] [place] [address] Referring Physician Orthopaedic Surgery 05/17/23 Brody Ibrahim DPM [address] [place] [address] Referring Physician Podiatry 05/17/23 Anuja Huddleston MD [address] [place] [address] Referring Physician Family Medicine 07/25/24 Topher Saavedra MD [address] [place] [address] Referring Physician Urology 07/25/24 Kitty Edmond OD [address] [place] [address] Referring Physician Optometry 07/25/24 Spray Gun Striper Relationship Specialty Start Date End Date Jordan Duncan MD [address] [place] [address] (Fax) PCP - General Family Medicine 10/25/22 Jordan Duncan MD [address] [place] [address] (Fax) PCP - ACO Reach 08/05/23 Jr. Anuja Henson DO [address] [place] [address] [place] [address] Referring Physician Orthopaedic Surgery 05/17/23 Brody Ibrahim DPM [address] [place] [address] [place] [address] Referring Physician Podiatry 05/17/23 [place] [address] [place] [phone] (Fax) Referring Physician Family Medicine 07/25/24 Topher Saavedra MD [address] [place] [phone] Referring Physician Urology 07/25/24 Kitty Edmond OD [address] [place] [address] [place] [address] Referring Physician Optometry 07/25/24 Spray Gun Striper Relationship Specialty Start Date End Date Jordan Duncan MD [address] [place] [address] (Fax) PCP - General Family Medicine 10/25/22 Jordan Duncan MD [address] [place] [address] (Fax) PCP - ACO Reach 08/05/23 Jr. Anuja Henson DO [address] [place] [address] Referring Physician Orthopaedic Surgery 05/17/23 Brody Ibrahim DPM [address] [place] [address] Referring Physician Podiatry 05/17/23 Anuja Huddleston MD [address] [place] [address] Referring Physician Family Medicine 07/25/24 Topher Saavedra MD [address] [place] [address] Referring Physician Urology 07/25/24 Kitty Edmond OD [address] [facility] [place] [address] Referring Physician Optometry 07/25/24 Spray Gun Striper Relationship Specialty Start Date End Date Jordan Duncan MD [address] [place] [address] (Fax) PCP - General Family Medicine 10/25/22 Jordan Duncan MD [address] [place] [address] PCP - ACO Reach 08/05/23 Jr. Anuja Henson DO [address] [place] [address] Referring Physician Orthopaedic Surgery 05/17/23 Brody Ibrahim DPM [address] [place] [address] Referring Physician Podiatry 05/17/23 Anuja Huddleston MD [address] [place] [phone] Referring Physician Family Medicine 07/25/24 Topher Saavedra MD [address] [place] [address] Referring Physician Urology 07/25/24 Kitty Edmond OD [facility] [place] [address] Referring Physician Optometry 07/25/24 Spray Gun Striper Relationship Specialty Start Date End Date Jordan Duncan MD [address] [place] [address] PCP - General Family Medicine 10/25/22 Jordan Duncan MD [address] [facility] [address] [place] [address] PCP - ACO Reach 08/05/23 Jr. Anuja Henson DO [address] [place] [address] Referring Physician Orthopaedic Surgery 05/17/23 Brody Ibrahim DPM [address] [place] [address] Referring Physician Podiatry 05/17/23 Anuja Huddleston MD [address] [place] [phone] (Fax) Referring Physician Family Medicine 07/25/24 Topher Saavedra MD [address] [place] [phone] Referring Physician Urology 07/25/24 Kitty Edmond [address] 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 Anuja Henson DO [address] [facility] [address] [place] [address] Referring Physician Orthopaedic Surgery 05/17/23 Brody Ibrahim DPM [address] [place] [address] Referring Physician Podiatry 05/17/23 Anuja Huddleston MD [address] [place] [phone] (Fax) Referring Physician Family Medicine 07/25/24 Topher Saavedra MD [address] [place] [phone] Referring Physician Urology 07/25/24 Kitty Edmond OD [address] [facility] [place] [address] Referring Physician Optometry 07/25/24 Korin Kraft, RN [address] [place] [address] Registered Nurse Family Medicine 12/24/24 Reason for Visit (unrecogniz ed section and [...] Advice Only 04/09/2024 orthotics 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 [facility]. provides no warranty or guarantee of the accuracy or completeness of information in this document.
--- NOTE | 2025-01-01 11:29 | P.ORON_ITS ---
Brief Operative Note Date of procedure: 01/01/25 Pre-op diagnosis general: right 4th toe ulcer diabetic foot ulcer & 5th hammer toe Post-op diagnosis: same as pre-op Procedure: Procedure performed: Right delayed primary closure of fourth toe ulcer and fifth toe amputation Indication for procedure: Mr. Henry is a 74-year-old male with type 2 diabetes and recurrent ulceration between on the lateral aspect of 4th toe as well as fifth toe contracture and subsequent rubbing and irritation on the lateral aspect of the fourth toe. Due to the recurrent nature of the ulcer and its association with toe deformity patient wished to undergo surgical intervention at his most recent appointment in the wound center. He has a history of multiple foot ulcerations and years ago underwent partial fifth ray amputation. The fifth toe developed soft tissue contracture and is the source of irritation and rubbing on the fourth toe. I went over the potential risks and benefits of surgical intervention discussing both fifth toe amputation as well as correction of the fifth toe deformity. After reviewing the recovery associated with each of the procedures patient wished to undergo fifth toe amputation. Intraoperative findings: Full thickness ulceration lateral aspect of the fourth toe. No bone or tendon exposure. No purulence. Fifth toe is severely contracted and nonreducible. No signs of deep space infection and bone quality was within normal limits. Procedure in detail: Patient was identified preoperatively by myself which time correct side site were marked and consent was obtained. Patient was brought back to the operating theater placed on table in supine position with an ankle tourniquet. Preoperative antibiotics were started. IV sedation was administered and the right foot was prepped and draped in usual sterile fashion. Formal timeout was performed. Local anesthesia consisting of 10 cc of 1% lidocaine plain and 10 cc of 0.5% Marcaine plain were administered as a standard fifth ray block. The foot was exsanguinated and tourniquet was inflated. A fishmouth incision was placed on the base of the 5th toe. Full-thickness incision was taken down to bone to the level of the base of the fifth proximal phalanx and all soft tissue attachments were released allowing disarticulation of the digit. The amputated digit was passed back table and sent for specimen. Tendinous structures were cut proximally. Surgical site was irrigated with no rmal saline and inspected for any nonviable tissue which was removed. There was no signs of infection and the tourniquet was deflated with a prompt hyperemic response. Hemostasis was controlled on the field with temporary pressure. The ulceration on the lateral aspect of the fourth toe was excised and a 3-1 ellipse. All nonviable tissue including fat and fascia were then sharply excised. The wound base was curetted until healthy bleeding tissue was present. Surgical site was irrigated with copious saline. 500 mg of vancomycin powder was placed into the surgical sites prior to closure. The incisions were then closed without tension using skin suture. A dry sterile dressing consisting of Xeroform 4 x 4's Kerlix and an Rashard wrap followed by surgical shoe were applied. Patient tolerated the procedure and anesthesia well transferred to the recovery room with vital signs stable. Postoperative plan: Discharge home under family's care Weightbearing as tolerated in surgical shoe Emphasis on rest and elevation Prescriptions were sent to his pharmacy using my office EMR Follow-up in the wound center within 1 week Implants: none Anesthesia: MAC and local Surgeon: Rolando Boss Estimated blood loss (mL): 10 Pathology: other (Fifth toe amputation) Condition: stable Disposition: PACU
[2025-01-01] MEDS: BUPIVACAINE HCL 0.5% PF 50 MG/10 ML VIAL INJ (11:54)
[2025-01-01] MEDS: LIDOCAINE HCL 1% 100 MG/10 ML MDV INJ (11:54)
[2025-01-01] MEDS: VANCOMYCIN HCL 500 MG VIAL TOPICAL (12:13)
[2025-01-01 12:23] VITALS: BP 117/59; PULSE 65; TEMP 36.1; O2SAT 94
[2025-01-01 12:38] VITALS: BP 120/62; PULSE 64; O2SAT 95
--- NOTE | 2025-01-01 12:44 | XR_ITS ---
The [address] [address] Patient Name: NIMCO LARA MRN: [id number] date: 1950 Sex: M Assigned Patient Location: [facility] Current Patient Location: Accession/Order Number: [id number] Exam Date: 01/01/2025 15:03 Report Date: 01/01/2025 15:04 At the request of: ENEDINA HARGROVE DPM Procedure: XR foot RT min 3V RIGHT FOOT - 3 views CLINICAL HISTORY: Postop right foot amputation fifth digit COMPARISON: Right foot 06/30/2023 FINDINGS: Interval amputation of the remaining distal aspect of the fifth digit since the prior study. Base of the fifth metatarsal still present with heterotopic ossification. Soft tissue swelling is present. Plantar spurring with scattered degenerative changes. No acute bony process or plain film evidence of osteomyelitis. XR/XR foot RT min 3V IMPRESSION: DISTAL AMPUTATION OF THE FIFTH DIGIT WITH SOFT TISSUE SWELLING. NO DEFINITIVE EVIDENCE OF OSTEOMYELITIS. Impression dictated by: John Pike Jr., D.O. 01/01/2025 3:04 PM Dictation Location: [place] [address] Electronically authenticated by: [id number] Y Date: 01/01/2025 15:04
[2025-01-01 12:53] VITALS: BP 97/68; PULSE 62; O2SAT 98
== END 2025-01-01 12:53 | disposition home or self-care (01) ==
LOC: SURGOUT 09:41
PROVIDERS: PCP Family Medicine; Visit Provider Podiatrist Foot & Ankle Surgery
PROC: (CPT 28039; principal; 2025-01-01 11:00)
DX: M20.41 Other hammer toe(s) (acquired), right foot (principal); E11.621 Type 2 diabetes mellitus with foot ulcer; E11.42 Type 2 diabetes mellitus with diabetic polyneuropathy; G47.33 Obstructive sleep apnea (adult) (pediatric); Z79.84 Long term (current) use of oral hypoglycemic drugs; Z96.659 Presence of unspecified artificial knee joint; Z87.891 Personal history of nicotine dependence; E78.5 Hyperlipidemia, unspecified; I10 Essential (primary) hypertension; I25.10 Atherosclerotic heart disease of native coronary artery without angina pectoris; I25.2 Old myocardial infarction; Z95.5 Presence of coronary angioplasty implant and graft; L97.519 Non-pressure chronic ulcer of other part of right foot with unspecified severity
CPT/HCPCS: 28039; 28820; 36415; 73630; 82948; 88305; 88311; J0131; J0665; J0690; J1100; J2250; J2704; J3010; J3373

== ENCOUNTER 2025-01-04 09:16 | Outpatient (OUT) | payer MEDICARE, SELFPAY ==
--- OUTSIDE RECORDS SUMMARY | 2010-08-31 06:30 | XMS_ITS | Encounter Summary ---
Author Organization [facility] Address [address] [facility], [address] [place] [address] Care Team Providers Care Marketing Operations Manager Name Role Phone Unavailable Primary Care Provider Unavailabl e Encounter Details Date Type Department Care Team (Late Contact Info) Description 08/31/2010 6:30 AM EDT Hospital Encounter [facility] Department [address] [place] [address] Altaf Velázquez MD [address] [place] [address] Social History Tobacco Use Types Packs/Day [...] Info) Description 02/22/2025 1:00 PM EDT Appointment [facility] [address] [place] [address] phlebotomy documented as of this encounter Visit Diagnoses Not on filedocumented in this encounter
--- OUTSIDE RECORDS SUMMARY | 2013-08-17 02:10 | XMS_ITS | Encounter Summary ---
Author Organization [facility] Address [address], [address] [place] [address] Care Team Providers Care Gravel Truck Driver Name Role Phone Diego Bartlett MD Primary Care Provider [phone] Encounter Details Date Type Department Care Team (Late st Contact Info) Description 08/17/2013 2:10 AM EDT Hospital Encounter MTH PRE ADMIT [address] [phone] Peewee Westfall, DPM [address] [place] [address] Social History Tobacco Use Types Packs/Day Years [...] 1:00 PM EDT Appointment [facility] [address] [place] [address] phlebotomy documented as of this encounter [...] [facility] Ventricular Rate 57 BPM [facility] Atrial Rate 57 BPM [facility] P-R Interval 174 ms [facility] H RADIOLOGY QRS Duration 86 ms [facility] Q-T Interval 406 ms [facility] QTc Calculation (Bazett) 395 ms [facility] P [place] 64 degrees [facility] R [place] 26 degrees [facility] T [place] 46 degrees [facility] 08/17/2013 8:50 AM EDT Narrative [facility] - 08/17/2013 6:59 PM EDT Sinus bradycardiaOtherwise normal ECGWhen compared with ECG of 05-OCT-2010 08:57,No significant change was found Procedure Note 08/17/2013 Sinus bradycardiaOtherwise normal ECGWhen compared with ECG of [id number],No significant change was found us Peewee Westfall DPM ECG ORDERABLES Final Result [facility] * XR Chest Standard TWO VW (08/17/2013 8:50 AM EDT) Anatomical Region Laterality Modality Chest Radiographic Lynn ging 08/17/2013 8:50 AM EDT Narrative 08/17/2013 4:48 PM EDT FINAL Procedure: TRT Aug 17 2013 8:50AM [id number] CHEST PA AND LATERAL Reason for Exam: [...] Fish MD IMPRESSION: SEE ABOVE. Transcribed by: [facility] on Aug 17 2013 4:48P Read by: CHAPIN BAUTISTA M.D. [id number] on Aug 17 2013 11:15A Electronically Signed by: DR. CHAPIN BAUTISTA M.D. on: Aug 17 2013 4:48P Procedure Note Chapin Bautista MD - 08/17/2013 FINAL Procedure: TRT Aug 17 2013 8:50AM [id number] CHEST PA AND LATERAL Reason for Exam: [...] Fish MD IMPRESSION: SEE ABOVE. Transcribed by: [facility] on Aug 17 2013 4:48P Read by: CHAPIN BAUTISTA M.D. [id number] on Aug 17 2013 11:15A Electronically Signed by: DR. CHAPIN BAUTISTA M.D. on: Aug 17 2013 4:48P us Peewee Westfall DPM IMG DIAGNOSTIC IMAGING ORDERA BLES Edited Result - Final * (ABNORMAL) Urinalysis with microscopic (08/17/2013 8:28 AM EDT) Color, UA YELLOW YEL 08/17/2013 10:10 AM EDT [facility] Turbidity UA CLEAR CLEAR 08/17/2013 10:10 AM EDT [facility] Glucose, Ur NEGATIVE NEG 08/17/2013 10:10 AM EDT [facility] Bilirubin Urine NEGATIVE NEG 08/17/201 4 10:10 AM EDT [facility] Ketones, Urine NEGATIVE NEG 08/17/2013 10:10 AM EDT [facility] Specific [place], UA >1.030(H) 1.010 - 1.020 08/17/2013 10:10 AM EDT [facility] Urine Hgb NEGATIVE NEG 08/17/2013 10:10 AM EDT [facility] pH, UA 6.0 5.0 - 9.0 08/17/2013 10:10 AM EDT [facility] Protein, UA NEGATIVE NEG 08/17/2013 10:10 AM EDT [facility] Urobilinogen, Urine Normal NORM 08/17/2013 10:10 AM EDT [facility] Nitrite, Urine NEGATIVE NEG 08/17/2013 10:10 AM EDT [facility] Leukocyte Esterase, Urine NEGATIVE NEG 08/17/2013 10:10 AM EDT [facility] Urinalysis Comments NOT REPORTED [facility] - 08/17/2013 10:10 AM EDT [facility] WBC, UA 0 TO 2 0 - 5 /HPF 08/17/2013 10:10 AM EDT [facility] RBC, UA None 0 - 2 /HPF 08/17/2013 10:10 AM EDT [facility] Casts UA NOT REPORTED 0 - 2 /LPF [facility] Crystals, UA NOT REPORTED NONE /HPF [facility] Epithelial Cells, UA 0 TO 2 0 - 25 /HPF 08/17/2013 10:10 AM EDT [facility] Comment: Performed at [address] [place], [place] [id number] Renal Epithelial, UA NOT REPORTED 0 /HPF [facility] Bacteria, UA NOT REPORTED NONE [facility] Mucus, UA NOT REPORTED NONE [facility] Trichomonas NOT REPORTED NONE [facility] Amorphous, UA NOT REPORTED NONE [facility] Other Observations UA NOT REPORTED NREQ [facility] Yeast, UA NOT REPORTED NONE [facility] URINE SPECIMEN / Unknown 08/17/2013 8:28 AM EDT 08/17/2013 8:29 AM EDT Peewee Westfall DPArin URINE ORDERABLES Final Result [facility] [address] [place] [id number], [facility] [phone] [facility] * (ABNORMAL) Basic Metabolic Panel (08/17/2013 8:28 AM EDT) Glucose 135(H) 70 - 99 mg/dL 08/17/2013 9:30 AM EDT [facility] BUN 16 8 - 23 mg/dL 08/17/2013 9:30 AM EDT [facility] Creatinine 0.73 0.70 - 1.20 mg/dL 08/17/2013 9:30 AM EDT [facility] BUN/Creatinine Ratio 22(H) 9 - 20 08/17/2013 9:30 AM EDT [facility] Calcium 9.7 8.6 - 10.0 mg/dL 08/17/2013 9:30 AM EDT [facility] Sodium 138 136 - 145 mmol/L 08/17/2013 9:30 AM EDT [facility] Potassium 4.5 3.5 - 5.1 mmol/L 08/17/2013 9:30 AM EDT [facility] Chloride 104 98 - 107 mmol/L 08/17/2013 9:30 AM EDT [facility] CO2 26 20 - 31 mmol/L 08/17/2013 9:30 AM EDT [facility] Anion Gap NOT REPORTED mmol/L [facility] GFR Non- >60 >60 mL/min 08/17/2013 9:30 AM EDT [facility] GFR >60 >60 mL/min 08/17/2013 9:30 AM EDT [facility] GFR Comment 08/17/2013 9:30 AM EDT [facility] Comment: Average GFR for 60-69 years old: 85 mL/min/1.73sq m Chronic Kidney Disease: <60 mL/min/1.73sq m Kidney failure: <15 mL/min/1.73sq m GFR Staging 08/17/2013 9:30 AM EDT [facility] Comment: Stage 1: Some kidney damage normal GFR Stage 2: Mild kidney damage GFR 60-89 Stage 3: Moderate kidney damage GFR 30-59 Stage 4: Severe kidney damage GFR 15-29 Stage 5: Severe kidney damage GFR <15 ESRD - chronic treatment by dialysis or transplant Performed at [address] [place] [address] BLOOD SPECIMEN / Unknown 08/17/2013 8:28 AM EDT 08/17/2013 8:29 AM EDT Peewee Westfall DPArin CHEMISTRY ORDERABLES Final Re sult [place] [id number], [facility] [phone] [facility] * (ABNORMAL) CBC (08/17/2013 8:28 AM EDT) WBC 8.5 3.5 - 11.0 k/uL 08/17/2013 9:13 AM EDT [facility] RBC 5.32 4.5 - 5.9 m/uL 08/17/2013 9:13 AM EDT [facility] Hemoglobin 16.6 13.5 - 17.0 g/dL 08/17/2013 9:13 AM EDT [facility] Hematocrit 49.3 41 - 53 % 08/17/2013 9:13 AM EDT [facility] MCV 92.6 80 - 100 fL 08/17/2013 9:13 AM EDT [facility] MCH 31.2 26 - 34 pg 08/17/2013 9:13 AM EDT [facility] MCHC 33.7 31 - 37 g/dL 08/17/2013 9:13 AM EDT [facility] RDW 14.5(H) 10.0 - 14.0 % 08/17/2013 9:13 AM EDT [facility] Platelets 184 140 - 450 k/uL 08/17/2013 9:13 AM EDT [facility] Comment: Performed at [address] [place] [address] MPV NOT REPORTED 6.0 - 12.0 fL [facility] BLOOD SPECIMEN / Unknown 08/17/2013 8:28 AM EDT 08/17/2013 8:29 AM EDT us Peewee Westfall DPM HEMATOLOGY ORDERABLES Final R esult [facility] [address] [place] [address] [phone] [facility] documented in this encounter Visit Diagnoses Not on filedocumented in this encounter Care Teams Gravel Truck Driver Relationship Specialty Start Date End Date Diego Bartlett MD PCP - General 05/10/11 07/24/19 documented as of this encounter
--- OUTSIDE RECORDS SUMMARY | 2015-04-11 02:26 | XMS_ITS | Encounter Summary ---
Author Organization [facility] Address [address], [address] [place] [address] Care Team Providers Care Software Quality Engineer Name Role Phone Diego Bartlett MD Primary Care Provider [phone] Encounter Details Date Type Department Care Team (Late st Contact Info) Description 04/11/2015 1:26 AM EST Hospital Encounter MTH PRE ADMIT [address] [phone] Tiburcio Brennan MD [address] [place] [address] Social History Tobacco Use Types [...] 1:00 PM EDT Appointment [facility] [address] [place], [place] [phone] phlebotomy documented as of this encounter Procedures [...] 12 lead (04/11/2015 9:32 AM EST) Pathologist [facility] Ventricular Rate 77 BPM [facility] RADIOLOGY Atrial Rate 77 BPM [facility] RADIOLOGY P-R Interval 174 ms [facility] RAD[facility]OLOGY QRS Duration 80 ms [facility] Q-T Interval 360 ms [facility] QTc Calculation (Bazett) 407 ms [facility] RADIOLOGY P Jupiter 51 degrees [facility] R Jupiter 17 degrees [facility] T Jupiter 51 degrees [facility] 04/11/2015 9:32 AM EST Narrative [facility] - 04/11/2015 3:49 PM EST Normal sinus rhythmPossible Inferior infarct , age undeterminedAbnormal ECGWhen compared with ECG of 24-OCT-2013 18:45,No significant change was found Procedure Note Result, Unknown Provider - 04/11/2015 Normal sinus rhythmPossible Inferior infarct , age undeterminedAbnormalECGWhen compared with ECG of 24-OCT-2013 18:45,No significant change wasfound us Tiburcio Brennan MD ECG ORDERABLES Final Result [facility] * XR Chest Standard TWO [...] Specimen Description .SUDHAKAR 04/11/2015 8:47 AM EST [facility] Special Requests NOT REPORTED 04/11/2015 8:47 AM EST [facility] Culture NEGATIVE FOR: METHICILLIN RESISTANT STAPHYLOCOCCUS AUREUS 04/14/2015 10:55 AM EST [facility] Culture Performed at [address] [place] [address] 04/14/2015 10:55 AM EST [facility] Culture 04/14/2015 10:55 AM EST [facility] Status FINAL 04/14/2015 04/14/20 15 10:55 AM EST [facility] ANTERIOR NARES SWAB / Unknown 04/11/2015 8:50 AM EST 04/11/2015 8:55 AM EST Tiburcio Brennan MD MICROBIOLOGY - GENERAL ORDERA BLES Final Result [facility] [address] [place] [address], [facility] [phone] [facility] * (ABNORMAL) Basic Metabolic Panel (04/11/2015 8:43 AM EST) Glucose 157(H) 70 - 99 mg/dL 04/11/2015 10:03 AM EST [facility] BUN 11 8 - 23 mg/dL 04/11/2015 10:03 AM EST [facility] Creatinine 0.74 0.70 - 1.20 mg/dL 04/11/2015 10:03 AM EST [facility] BUN/Creatinine Ratio 15 9 - 20 04/11/2015 10:03 AM EST [facility] Calcium 9.6 8.6 - 10.4 mg/dL 04/11/2015 10:03 AM EST [facility] Sodium 138 135 - 144 mmol/L 04/11/2015 10:03 AM EST [facility] Potassium 4.3 3.7 - 5.3 mmol/L 04/11/2015 10:03 AM EST [facility] Chloride 100 98 - 107 mmol/L 04/11/2015 10:03 AM EST [facility] CO2 25 20 - 31 mmol/L 04/11/2015 10:03 AM EST [facility] Anion Gap 13 9 - 17 mmol/L 04/11/2015 10:03 AM EST [facility] GFR Non- >60 >60 mL/min 04/11/2015 10:03 AM EST [facility] GFR >60 >60 mL/min 04/11/2015 10:03 AM EST [facility] GFR Comment 04/11/2015 10:03 AM EST [facility] Comment: Average GFR for 60-69 years [...] treatment by dialysis or transplant Performed at [address] [place] [place] [address] ([phone] BLOOD SPECIMEN / Unknown 04/11/2015 8:43 AM EST 04/11/2015 8:44 AM EST us Tiburcio Brennan MD CHEMISTRY ORDERABLES Final Re sult [address] [address] [phone] [facility] * (ABNORMAL) CBC auto differential (04/11/2015 [...] MPV NOT REPORTED 6.0 - 12.0 fL [facility] Differential Type NOT REPORTED [facility] Seg Neutrophils 74(H) 36 - [...] AM EST [facility] LAB Comment: Performed at [address] [place] [place] [address] ([phone] WBC Morphology NOT REPORTED [facility] RBC Morphology NOT REPORTED [facility] Platelet Estimate NOT REPORTED [facility] BLOOD SPECIMEN / Unknown 04/11/2015 8:43 AM EST 04/11/2015 8:44 AM EST us Tiburcio Brennan MD HEMATOLOGY ORDERABLES Final R esult [address] [address] [phone] [facility] documented in this encounter Visit Diagnoses Not on filedocumented in this encounter Care Teams Software Quality Engineer Relationship Specialty Start Date End Date Diego Bartlett MD PCP - General 12/5/11 2/18/20 documented as of this encounter
--- OUTSIDE RECORDS SUMMARY | 2015-05-08 02:32 | XMS_ITS | Encounter Summary ---
Author Organization [facility] Address [address] [facility], [address] [place] [address] Care Team Providers Care Agriculture Professor Name Role Phone Diego Bartlett MD Primary Care Provider [phone] Encounter Details Date Type Department Care Team (Late st Contact Info) Description 05/08/2015 1:32 AM EST Hospital Encounter MTH PRE ADMIT [address] [place] [address] Tiburcio Brennan MD [address] [place] [address] Social History Tobacco Use Types [...] 1:00 PM EDT Appointment [facility] [address] [place] [address] phlebotomy documented as of this encounter Procedures Procedure Name Priority Date/Time Associated Diagnosis Comments TYPE AND SCREEN Routine 05/08/2015 12:42 PM EST documented in this encounter Results * Type and screen (05/08/2015 12:42 PM EST) Expiration Date 05/15/2015 5 4:00 PM EST [facility] Arm Band Number [id number] 5 4:00 PM EST [facility] ABO/Rh A POSITIVE 05/08/2015 4:00 PM EST [facility] Antibody Screen NEGATIVE 5 4:00 PM EST [facility] Comment: Performed at [address] [place] [address] ([phone] 05/08/2015 12:4 2 PM EST 05/08/2015 12:43 PM EST Tiburcio Brennan MD BLOOD BANK TEST ORDERABLES Fi nal Result [place] [id number] [phone] [facility] documented in this encounter Visit Diagnoses Not on filedocumented in this encounter Care Teams Agriculture Professor Relationship Specialty Start Date End Date Diego Bartlett MD PCP - General 05/10/11 07/24/19 documented as of this encounter
--- OUTSIDE RECORDS SUMMARY | 2015-09-17 13:44 | XMS_ITS | Encounter Summary ---
Author Organization [facility] Address [address], [address] [place] [address] Care Team Providers Care Inspection And Testing Supervisor Name Role Phone Diego Bartlett MD Primary Care Provider [phone] Encounter Details Date Type Department Care Team (Late Contact Info) Description 09/17/2015 1:44 PM EDT Hospital Encounter [facility] PFT [address] [place] [phone] Newton Stein MD [address] [place] [address] Social History Tobacco Use Types Packs/Day Years [...] 1:00 PM EDT Appointment [facility] [address] [place] [address] phlebotomy documented as of this encounter Procedures Procedure Name Priority Date/Time Associated Diagnosis Comments BLOOD GAS, ARTERIAL Sunquest Label Print 09/17/2015 3:10 PM EDT documented in this encounter Results * (ABNORMAL) Blood Gas, Arterial (09/17/2015 3:10 PM EDT) pH, Arterial 7.403 7.35 - 7.45 09/17/2015 3:36 PM EDT [facility] pCO2, Arterial 41.8 35 - 45 mmHg 09/17/2015 3:36 PM EDT [facility] pO2, Arterial 78.5(L) 80 - 100 mmHg 09/17/2015 3:36 PM EDT [facility] HCO3, Arterial 25.5 22 - 26 mmol/L 09/17/2015 3:36 PM EDT [facility] Positive Base Excess, Art 0.6 0.0 - 2.0 mmol/L 09/17/2015 3:36 PM EDT [facility] Negative Base Excess, Art NOT REPORTED 0.0 - 2.0 mmol/L [facility] O2 Sat, Arterial 96.1 95 - 98 % 09/17/2015 3:36 PM EDT [facility] Total Hb NOT REPORTED 12.0 - 16.0 g/dl [facility] Oxyhemoglobin NOT REPORTED 95.0 - 98.0 % [facility] Carboxyhemoglobin 0.3 0.0 - 5.0 % 09/17/2015 3:36 PM EDT [facility] Methemoglobin 0.6 0.0 - 1.9 % 09/17/2015 3:36 PM EDT [facility] Pt Temp 37 09/17/2015 3:36 PM EDT [facility] pH, Art, Temp Adj NOT REPORTED 7.350 - 7.450 [facility] pCO2, Art, Temp Adj NOT REPORTED [facility] pO2, Art, Temp Adj NOT REPORTED 80.0 - 100.0 mmHg [facility] O2 Device/Flow/% ROOM AIR 09/17/19 16 3:36 PM EDT [facility] Respiratory Rate NOT REPORTED [facility] Brennan Test PASS 09/17/2015 3:36 PM EDT [facility] Sample Site Left Radial Artery 09/17/2015 3:36 PM EDT [facility] Comment: Performed at [address] [place] [address] ([phone] Pt. Position NOT REPORTED [facility] Mode NOT REPORTED [facility] Set Rate NOT REPORTED [facility] Total Rate NOT REPORTED [facility] VT NOT REPORTED [facility] FIO2 NOT REPORTED [facility] Peep/Cpap NOT REPORTED [facility] PSV NOT REPORTED [facility] Text for Respiratory NOT REPORTED [facility] NOTIFICATION NOT REPORTED [facility] Notification Time NOT REPORTED [facility] Blood gases 09/17/2015 3:10 PM EDT 09/17/2015 3:18 PM EDT Newton Stein MD CHP ABG ORDER Final Resu lt Performing Organization Address City/State/[facility] Co de Phone Number [facility] [address] [place] [id number] [phone] PN [facility] documented in this encounter Visit Diagnoses Not on filedocumented in this encounter Care Teams Inspection And Testing Supervisor Relationship Specialty Start Date End Date Diego Bartlett MD PCP - General 05/10/11 07/24/19 documented as of this encounter
--- OUTSIDE RECORDS SUMMARY | 2025-01-04 09:18 | XMS_ITS | Encounter Summary ---
Author Organization [facility] Address [address] [place] [address] Care Team Providers Care Chicken Hanger Name Role Phone Jordan Wong MD Primary Care Provider [phone] Mitch Mello MD Unavailable Jr. Julio Henson DO Unavailable Alberto Ibrahim DPM Unavailable [phone] Jordan Wong MD Unavailable [phone] Julio Huddleston MD Unavailable Hudson Stevenson MD Unavailable [phone] Kitty Edmond OD Unavailable Korin Kraft RN Unavailable Encounter Details Date Type Department Care Team (Late st Contact Info) Description 01/19/2023 Abstract [facility] [address] [place] [address] Alberto Ibrahim DPArin [address] [place] [employer], [place] [id number] Social History Tobacco Use Types Packs/Day Years [...] on filedocumented in this encounter Care Teams Chicken Hanger Relationship Specialty Start Date End Date Jordan Wong MD 112 [facility] [address] [place] [address] PCP - General Family Medicine 10/25/22 Jodran Wong MD [address] [address] PCP - ACO Reach 08/05/23 Mitch Mello MD [address] [place] [address] Referring Physician Cardiology 05/17/23 07/24/24 Jr. Julio Henson DO [address] [place] [address] [address] [place] [address] Referring Physician Orthopaedic Surgery 05/17/23 Alberto Ibrahim DPM [address] [place] [address] Referring Physician Podiatry 05/17/23 Julio Huddleston MD [address] [place] [phone] Referring Physician Family Medicine 07/25/24 Hudson Stevenson MD [address] [place] [phone] Referring Physician Urology 07/25/24 Kitty Edmond OD [address] [place] [address] Referring Physician Optometry 07/25/24 Korin Kraft, ARUN [address] [facility] [address] [place] [address] Registered Nurse Family Medicine 12/24/24 12/31/24 documented as of this encounter
--- OUTSIDE RECORDS SUMMARY | 2025-01-04 09:18 | XMS_ITS | Encounter Summary ---
Author Organization [facility] Address [address] [facility] [place] [address] Care Team Providers Care Apartment Maintenance Name Role Phone Jordna Wong MD Primary Care Provider [phone] Jr. Julio Henson DO Unavailable [phone] Alberto Ibrahim DPM Unavailable [phone] Jordan Wong MD Unavailable [phone] Julio Huddleston MD Unavailable [phone] Hudson Stevenson MD Unavailable [phone] Kitty Edmond OD Unavailable Korin Kraft RN [...] Procedure Name Priority Date/Time Associated Diagnosis Comments [facility] LIVER PANEL Routine 12/26/2024 8:13 AM EDT [...] External Data Provider [facility] F [facility] LIVER PANEL (12/26/2024 8:13 AM EDT) BILIRUBIN [...] External Data Provider [facility] F [facility]al [facility] documented in this encounter Visit Diagnoses Not on filedocumented in this encounter Additional Health Concerns Assessment Noted Time PHQ-9 Depression Total Score: 2 07/25/19 25 9:00 AM EST documented as of this encounter Care Teams Apartment Maintenance Relationship Specialty Start Date End Date Jordan Wong MD [address] [place] [address] PCP - General Family Medicine 10/25/22 Jordan Wong MD [address] [place] [address] (Fax) PCP - ACO Reach 08/05/23 Jr. Julio Henson DO [address] [place] [address] Referring Physician Orthopaedic Surgery 05/17/23 Alberto Ibrahim DPM [address] [place] [address] Referring Physician Podiatry 05/17/23 Julio Huddleston MD [address] [place] [address] Referring Physician Family Medicine 07/25/24 Hudson Stevenson MD [address] [place] [address] Referring Physician Urology 07/25/24 Kitty Edmond OD [address] [place] [address] Referring Physician Optometry 07/25/24 Korin Kraft, ARUN [address] [address] Registered Nurse Family Medicine 12/24/24 12/31/24 documented as of this encounter
--- OUTSIDE RECORDS SUMMARY | 2025-01-04 09:19 | XMS_ITS | Encounter Summary ---
Author Organization [facility] Address [address] [place] [address] Care Team Providers Care Hot Kettle Tender Name Role Phone Jordan Wong MD Primary Care Provider [phone] Mitch Mello MD Unavailable Jr. Julio Henson DO Unavailable Alberto Ibrahim DPM Unavailable [phone] Jordan Wong MD Unavailable [phone] Julio Huddleston MD Unavailable Hudson Stevenson MD Unavailable [phone] Kitty Edmond OD Unavailable Korin Kraft RN Unavailable [phone] Encounter Details Date Type Department Care Team (Late st Contact Info) Description 04/20/2023 Orders Only [facility] [address] [place] [address] Jordan Wong MD 112 [facility] [address] [place] [address] Social History Tobacco Use Types Packs/Day Years [...] on filedocumented in this encounter Care Teams Hot Kettle Tender Relationship Specialty Start Date End Date Jordan Wong MD 112 [facility] 100 [place] [address] PCP - General Family Medicine 10/25/22 Jordan Wong MD 112 [facility] 100 [place] [address] PCP - ACO Reach 08/05/23 Mitch Mello MD [address] [place] [phone] Referring Physician Cardiology 05/17/23 07/24/24 Jr. Julio Henson DO 112 [facility] [address] [place] [address] Referring Physician Orthopaedic Surgery 05/17/23 Alberto Ibrahim DPM [address] [place] [address] Referring Physician Podiatry 05/17/23 Julio Huddleston MD [address] [place] [phone] Referring Physician Family Medicine 07/25/24 Hudson Stevenson MD [address] [place] [address] Referring Physician Urology 07/25/24 [place] [address] [place] [id number] Referring Physician Optometry 07/25/24 Korin Kraft, ARUN [address] [address] Registered Nurse Family Medicine 12/24/24 12/31/24 documented as of this encounter
--- OUTSIDE RECORDS SUMMARY | 2025-01-04 09:19 | XMS_ITS | Clinical Summary ---
Author Organization [facility] Address [address] [place] [address] Care Team Providers Care Underlay Stitcher Name Role Phone Jordan Duncan MD Primary Care Provider Jr. Julio Henson DO Unavailable Alberto Ibrahim DPM Unavailable Jordan Duncan MD Unavailable [phone] Julio Huddleston MD Unavailable Hudson Stevenson MD [...] 5 mg by mouth Daily 06/08/19 25 Active isosorbide mononitrate ER (Imdur) 30 MG 24 hr tablet Take 30 mg by mouth Daily 06/08/19 25 Active timolol (Timoptic) 0.5 % ophthalmic solution Administer 1 drop into both eyes in the morning and 1 drop before bedtime. 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 01/11/2023 Hypogonadism male [...] Encounters Date Type Department Care Team Description 01/01/2025 Clinisync Result Encounter NOMS External Department Unsolicited Provider, Generic External Data 12/31/2024 Patient Outreach [facility] [place] [address] Korin Kraft RN 12/28/2024 Clinisync Result Encounter NOMS External Department Unsolicited Provider, Generic External Data 12/28/2024 Clinisync Result Encounter NOMS External Department Unsolicited Provider, Generic External Data 12/26/2024 Clinisync Result Encounter NOMS External Department Unsolicited Provider, Generic External Data 12/24/2024 Telephone [facility] [address] [address] Jordan Duncan MD Care Coordination 12/03/2024 [address]phone [facility] [address] [address] Jordan Duncan MD 10/18/2024 Telephone [facility] [address] [address] Jordan Duncan MD from Last 3 Months Immunizations Immunization Administration Dates Next Due Influenza, [id number] 03/06/2016 Influenza, High Dose Seasona l, Preservative Free 03/05/2019,03/03/2018 Influenza, High-dose Seasona l, Quadrivalent, Preservative Free 03/04/2019,03/06/2016 Influenza, Seasonal, Quadriv alent, Adjuvanted 02/28/2023,04/16/2022,05/06/2021,03/22 Influenza, Unspecified 02/28/2023,2021,05/06/2021,03/22,03/05/2019,03/03/2018,04/06/2017 ,03/06/2016,03/06/2016,01/23/2016,03/06,04/06/2013 Influenza, injectable, quadr ivalent, preservative free 04/06/2017,01/23/2016 Influenza, seasonal, injectable 03/28/2024,03/23,04/06/2013 Influenza, trivalent, adjuvanted 03/28/2024 Moderna Bivalent Booster Vaccination 03/23/2022 Moderna SARS-CoV-2 50mcg/0.5mL Booster Novel [id number], preservative-free 04/21/2009 Pfizer Bivalent Booster 12 Y [...] Procedure Name Priority Date/Time Associated Diagnosis Comments XR FOOT RT MIN 3V 01/01/2025 3:0 4 PM EDT XR CHEST 2V 12/28/2024 3:03 PM EDT [facility] APTT Routine 12/28/2024 1:09 PM EDT [facility] PROTHROMBIN TIME INR W/O COUM Routine 12/28/2024 1:09 PM EDT ALL BASIC METABOLIC PANEL Routine 12/28/2024 1:09 PM EDT ALL CBC WITH AUTO DIFF Routine 12/28/2024 1:09 PM EDT ALL LIPID PROFILE (FASTING) Routine 12/26/2024 8:13 AM EDT HMHP LIVER PANEL Routine 12/26/2024 8:13 AM EDT [...] Recently Relevant to Health Maintenance Results * XR FOOT RT MIN 3V (01/01/2025 3:04 PM EDT) Anatomical Region Laterality Modality Other 01/01/2025 3:04 PM EDT Narrative 01/01/2025 3:06 PM EDT The [address] [address] XRay Report Signed Patient: JUAN MIGUEL JENNINGS MR#: [id number] : 1950 Acct:[id number] Age/Sex: 74 / M ADM Date: 01/01/25 Loc: SURGOUT Attending Dr: Enedina Boss D.P.M. Ordering Physician: Enedina Boss D.P.M. Date of Service: 01/01/25 Procedure(s): XR foot RT min 3V Accession Number(s): [id number] cc: JORDAN DUNCAN ; Enedina Boss D.P.M. The [address] [address] Patient Name: JUAN MIGUEL JENNINGS MRN: [id number] date: 1950 Sex: M Assigned Patient Location: [facility] Current Patient Location: Accession/Order Number: [id number] Exam Date: 01/01/2025 15:03 Report Date: 01/01/2025 15:04 At the request of: ENEDINA BOSS DPArin Procedure: XR foot RT min 3V RIGHT FOOT - 3 views CLINICAL HISTORY: Postop right foot amputation fifth digit COMPARISON: Right foot 06/30/2023 FINDINGS: Interval amputation of the remaining distal aspect of the fifth digit since the prior study. Base of the fifth metatarsal still present with heterotopic ossification. Soft tissue swelling is present. Plantar spurring with scattered degenerative changes. No acute bony process or plain film evidence of osteomyelitis. XR/XR foot RT min 3V IMPRESSION: DISTAL AMPUTATION OF THE FIFTH DIGIT WITH SOFT TISSUE SWELLING. NO DEFINITIVE EVIDENCE OF OSTEOMYELITIS. Impression dictated by: John Pike Jr., D.O. 01/01/2025 3:04 PM Dictation Location: [place] [address] Electronically authenticated by: [id number] Y Date: 01/01/2025 15:04 Dictated By: John Pike M.D. Signed By: 01/01/25 1506 DD/ 1504 TD/TT: Immigration Consultant: Procedure Note Radiology, Radiologist, MD - 01/01/[address] [address] XRay Report Signed Patient: JUAN MIGUEL JENNINGS JMR#: [id number] : 1950cct:[id number] Age/Sex: 74 / MADM Date: 01/01/25 Loc: SURGOUT Attending Dr: Enedina Boss D.P.M. Ordering Physician: Enedina Boss D.P.M. Date of Service: 01/01/25 Procedure(s): XR foot RT min 3V Accession Number(s): [id number] cc: JORDAN DUNCAN ; Enedina Boss D.P.M. The [place] [id number] Patient Name: JUAN MIGUEL JENNINGS MRN: [id number]:[id number] date: 1950 Sex: M Assigned Patient Location: [facility] Current Patient Location: Accession/Order Number: [id number] Exam Date: 01/01/2025 15:03 Report Date: 01/01/2025 15:04 At the request of: ENEDINA BOSS DPArin Procedure: XR foot RT min 3V RIGHT FOOT - 3 views CLINICAL HISTORY: Postop right foot amputation fifth digit COMPARISON: Right foot 06/30/2023 FINDINGS: Interval amputation of the remaining distal aspect of the fifth digitsince the prior study. Base of the fifth metatarsal still present withheterotopic ossification. Soft tissue swelling is present. Plantar spurring with scattered degenerative changes. No acute bony process or plain filmevidence of osteomyelitis. XR/XR foot RT min 3V IMPRESSION: DISTAL AMPUTATION OF THE FIFTH DIGIT WITH SOFT TISSUE SWELLING. NODEFINITIVE EVIDENCE OF OSTEOMYELITIS. Impression dictated by: John Pike Jr., D.O. 01/01/2025 3:04 PM Dictation Location: [place] [address] Electronically authenticated by: [id number] Y Date: 5:04 Dictated By: John Pike M.D. Signed By:01/01/25 1506 DD/ 1504 TD/TT: Immigration Consultant: us Generic External Data Provider [facility] Final Result * XR CHEST 2V (12/28/2024 3:03 PM EDT) Anatomical Region Laterality Modality Other 12/28/2024 3:03 PM EDT Narrative 12/28/2024 3:06 PM EDT [address] [address] XRay Report Signed Patient: JUAN MIGUEL JENNINGS MR#: [id number] : 1950 Acct:[id number] Age/Sex: 74 / M ADM Date: 12/28/24 Loc: PST Attending Dr: Enedina Boss D.P.M. Ordering Physician: Enedina Boss D.P.M. Date of Service: 12/28/24 Procedure(s): XR chest 2V Accession Number(s): [id number] cc: JORDAN DUNCAN ; Enedina Boss D.P.M. The [place] [id number] Patient Name: JUAN MIGUEL JENNINGS MRN: [facility]:[id number] date: 1950 Sex: M Assigned Patient Location: [facility] Current Patient Location: [facility] Accession/Order Number: [id number] Exam Date: 12/28/2024 15:02 Report Date: 12/28/2024 15:03 At the request of: ENEDINA BOSS DPArin Procedure: XR chest 2V Plain film chest [...] Palacios M.D. 12/28/2024 3:03 PM Dictation Location: [place] [address] Electronically authenticated by: [id number] Y Date: 12/28/2024 15:03 Dictated By: Tomer Palacios D.O. Signed By: 12/28/24 1506 DD/ 150 TD/TT: Immigration Consultant: Procedure Note Radiology, Radiologist, - 12/28/2024 The [place] [id number] XRay Report Signed Patient: JUAN MIGUEL JENNINGS JMR#: [id number] : 1950cct:[id number] Age/Sex: 74 / MADM Date: 12/28/24 Loc: PST Attending Dr: Enedina Boss D.P.M. Ordering Physician: Enedina Boss D.P.M. Date of Service: 12/28/24 Procedure(s): XR chest 2V Accession Number(s): [id number] cc: JORDAN DUNCAN ; Enedina Boss D.P.M. The [place] [id number] Patient Name: JUAN MIGUEL JENNINGS MRN: [id number] date: 1950 Sex: M Assigned Patient Location: [facility] Current Patient Location: [facility] Accession/Order Number: [id number] Exam Date: 12/28/2024 15:02 Report Date: 12/28/2024 15:03 At the request of: ENEDINA BOSS DPArin Procedure: XR chest 2V Plain film chest [...] Palacios M.D. 12/28/2024 3:03 PM Dictation Location: [place] [address] Electronically authenticated by: [id number] Y Date: 5:03 Dictated By: Tomer Palacios D.O. Signed By:12/28/24 1506 DD/ 02 TD/TT: Immigration Consultant: Generic External Data Provider [facility] Final Result * [facility] PROTHROMBIN TIME INR W/O COUM (12/28/2024 1:09 PM EDT) [facility] PROTHROMBIN TIME 10.7 9.0 - 11.6 sec [facility] TB INR 1.01 TB Comment: DESIRED INR: 2.0-3.0 CONDITIONS NOT LISTED BELOW 2.5-3.5 FOR PROSTHETIC HEART VALVE REPLACEMENT 2.5-3.5 RECURRENT THROMBOSIS 12/28/2024 1:09 PM EDT 12/28/2024 1:11 PM EDT Narrative [facility] - 12/28/2024 2:11 PM EDT Generic External Data Provider [facility] F inal Result [facility] * CCF APTT (12/28/2024 1:09 PM EDT) [facility] PARTIAL THROMBOPLASTIN TIME 30.4 22.3 - 36.2 sec [facility] 12/28/2024 1:09 PM EDT 12/28/2024 1:11 PM EDT Narrative [facility] - 12/28/2024 2:11 PM EDT Generic External Data Provider [facility] F inal Result Performing Organization Address City/[facility]/ZIP Co de Phone Number [facility] * (ABNORMAL) ALL CBC WITH AUTO DIFF (12/28/2024 1:09 PM EDT) [facility] TB WBC 7.1 4.0 - 11.0 10 3/uL [facility] TB RBC 4.18(L) 4.70 - 6.10 10 6/uL [facility] TB HGB 13.8(L) 14.0 - 18.0 g/dL TB TBH HCT 40.2(L) 42.0 - 54.0 % [facility] TBH MCV 96.2(H) 80.0 - 94.0 fL [facility] TBH MCH 33.0 25.9 - 34.0 pg TBH TBH MCHC 34.3 29.9 - 35.2 g/dL [facility] TBH RDW 13.2 11.0 - 15.0 % [facility] TBH PLT 141(L) 150 - 450 10 3/uL [facility] TBH MPV 11.9 9.5 - 13.5 fL [facility] NEUTROPHILS PERCENT AUTO 62.6 43.0 - 75.0 % [facility] LYMPHOCYTES PERCENT AUTO 19.7(L) 20.5 - 60.0 % [facility] MONOCYTES PERCENT AUTO 11.2 1.7 - 12.0 % [facility] TBH EO % 5.5 0.9 - 7.0 % [facility] BASOPHILS PERCENT AUTO 0.6 0.2 - 2.0 % [facility] IMMATURE GRANULOCYTES PCT AUTO 0.4 0.0 - 0.5 % [facility] NEUTROPHILS ABSOLUTE AUTO 4.4 1.4 - 6.5 10 3/uL [facility] LYMPHOCYTES ABSOLUTE AUTO 1.4 1.2 - 3.8 10 3/uL [facility] MONOCYTES ABSOLUTE AUTO 0.8 0.3 - 0.8 10 3/uL [facility] TBH EO # 0.4 0.0 - 0.7 10 3/uL [facility] BASOPHILS ABSOLUTE AUTO 0.0 0.0 - 0.1 10 3/uL [facility] IMMATURE GRANULOCYTES ABS AUTO 0.03 0.00 - 0.03 10 3/uL [facility] 12/28/2024 1:09 PM EDT 12/28/2024 1:11 PM EDT Narrative [facility] - 12/28/2024 1:46 PM EDT Generic External Data Provider [facility] F inal Result [facility] * (ABNORMAL) ALL BASIC METABOLIC PANEL (12/28/2024 1:09 PM EDT) SODIUM 138 136 - 145 mmol/L [facility] POTASSIUM 4.8 3.5 - 5.1 mmol/L [facility] CHLORIDE 103 98 - 107 mmol/L [facility] CARBON DIOXIDE 27.4 21.0 - 32.0 mmol/L [facility] ANION GAP 12.4 [facility] GLUCOSE 113(H) 74 - 106 mg/dL [facility] BLOOD UREA NITROGEN 20.0(H) 7.0 - 18.0 mg/dL [facility] CREATININE 0.81 0.70 - 1.30 mg/dL [facility] TBH EGFR-AF GUAMANIAN >60 >=60 mL/min/1.7 3m 2 TBH TBH EGFR-NON AF GUAMANIAN >60 >=60 mL/min/1.7 3m 2 [facility] BUN CREATININE RATIO 24.7 TBH CALCIUM 9.5 8.5 - 10.1 mg/dL [facility] 12/28/2024 1:09 PM EDT 12/28/2024 1:11 PM EDT Narrative [facility] - 12/28/2024 1:46 PM EDT Generic External Data Provider [facility] F inal Result Performing Organization Address [facility] Co de Phone Number [facility] * HMHP LIVER PANEL (12/26/2024 8:13 AM EDT) BILIRUBIN [...] External Data Provider [facility] F inal Result [facility] * (ABNORMAL) ALL LIPID PROFILE (FASTING) (12/26/2024 8:13 AM EDT) TRIGLYCERIDES 279(H) <=150 mg/dL [facility] CHOLESTEROL 172 <=200 mg/dL [facility] HDL CHOLESTEROL 40 40 - 60 mg/dL [facility] Comment: > or =60 mg/dl - LOW CARDIOVASCULAR RISK <40 mg/dl - HIGH CARDIOVASCULAR RISK LDL CHOLESTEROL CALCULATED 77.0 mg/dL [facility] Comment: <100 mg/dl OPTIMAL 100-129 mg/dl NEAR OR ABOVE OPTIMAL 130-159 mg/dl BORDERLINE HIGH 160-189 mg/dl HIGH >190 mg/dl VERY HIGH VLDL CHOLESTEROL 55.8 mg/dL [facility] CHOL HDL RATIO 4.3 [facility] Comment: 3.3 - 4.4 LOW RISK 4.4 - 7.1 AVERAGE RISK 7.1 - 11.0 MODERATE RISK >11.0 HIGH RISK 12/26/2024 8:13 AM EDT 12/26/2024 8:14 AM EDT Narrative [facility] - 12/26/2024 9:54 AM EDT Generic External Data Provider [facility] F inal Result [facility] * (ABNORMAL) POCT microalbumin manually resulted (09/18/2024 9:34 AM EDT) MICROALBUMIN, URINE 150 ALB/CREAT RATIO 300 URINE CREAT 50 Urine 09/18/2024 9:34 AM EDT Jordan Duncan MD POINT OF CARE TEST ENTER/LISA T [...] Performing Organization Information Site ID: QPT Name: [facility] Address: [address] [place] [address] Director: Toan Lara MD Jordan Duncan MD LAB BLOOD ORDERABLES Final R esult [facility] * Diabetic Retinopathy Screening - OU - Both Eyes (09/30/2023 9:57 AM EDT) Anatomical Region Laterality Modality Head Other Kitty Edmond OD OPHTH PHOTOGRAPHY Final Result * Colonoscopy (12/17/2020 12:00 PM EDT) Anatomical Region Laterality Modality Endoscopy 12/17/2020 12:0 0 PM EDT Narrative 12/17/2020 12:00 PM EDT PERFORMED AT [facility] LOCATION:[id number] Procedure Note CONVERSION, GENERIC - 10/20/2022 PERFORMED AT [facility] LOCATION:[id number] Jordan Duncan MD ENDOSCOPY PROCEDURE ORDERABL ES Final Result from Last 3 Months or Most Recently Relevant to Health Maintenance Insurance [facility] Advance Directives Documents on File Type Date Recorded 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 Julio Henson DO [address] [place] [address] Referring Physician Orthopaedic Surgery 05/17/23 Alberto Ibrahim DPM [address] [facility] [place] [address] Referring Physician Podiatry 05/17/23 Julio Huddleston MD [address] [place] [phone] Referring Physician Family Medicine 07/25/24 Hudson Stevenson MD [address] [place] [address] Referring Physician Urology 07/25/24 Kitty Edmond OD [address] [facility] [place] [address] Referring Physician Optometry 07/25/24
--- OUTSIDE RECORDS SUMMARY | 2025-01-04 09:19 | XMS_ITS | Encounter Summary ---
Author Organization [facility] Address [address] [facility] [place] [address] Care Team Providers Care Power Tong Operator Name Role Phone Celi Duncan MD Primary Care Provider [phone] Jr. Julio Henson DO Unavailable [phone] Alberto Ibrahim DPM Unavailable [phone] Celi Duncan MD Unavailable [phone] Julio Huddleston MD Unavailable [phone] Hudson Stevenson MD Unavailable [phone] Kitty Edmond OD Unavailable Korin Kraft RN Unavailable Encounter Details Date Type Department Care Team (Late st Contact Info) Description 12/28/2024 Clinisync Result Encounter [facility] External Department [...] Name Priority Date/Time Associated Diagnosis Comments XR CHEST 2V 12/28/2024 3:03 PM EDT documented in this encounter Results * XR CHEST 2V (12/28/2024 3:03 PM EDT) Anatomical Region Laterality Modality Other 12/28/2024 3:03 PM EDT Narrative 12/28/2024 3:06 [place] [address] XRay Report Signed Patient: JUAN MIGUEL JENNINGS MR#: [id number] : 1950 Acct:[id number] Age/Sex: 74 / M ADM Date: 12/28/24 Loc: [facility] Attending Dr: Rolando Boss D.P.M. Ordering Physician: Rolando Boss D.P.M. Date of Service: 12/28/24 Procedure(s): XR chest 2V Accession Number(s): [id number] cc: CELI DUNCAN ; Rolando Boss D.P.M. The [place] [address] Patient Name: JUAN MIGUEL JENNINGS MRN: [id number] date: 1950 Sex: M Assigned Patient Location: [facility] Accession/Order Number: [id number] Exam Date: 12/28/2024 15:02 Report Date: 12/28/2024 15:03 At the request of: ROLANDO BOSS DPArin Procedure: XR chest 2V Plain [...] Palacios M.D. 12/28/2024 3:03 PM Dictation Location: [place] [address] Electronically authenticated by: [id number] Y Date: 12/28/2024 15:03 Dictated By: Tomer Palacios D.O. Signed By: 12/28/24 1506 DD/ 1503 TD/TT: Supervisor Hairspring Fabrication: Procedure Note Radiology, Radiologist, - 12/28/2024 [place] [address] XRay Report Signed Patient: JUAN MIGUEL JENNINGS R#: [id number] : 1950cct:[id number] Age/Sex: 74 / MADM Date: 12/28/24 Loc: [facility] Attending Dr: Rolando Boss D.P.M. Ordering Physician: Rolando Boss D.P.M. Date of Service: 12/28/24 Procedure(s): XR chest 2V Accession Number(s): [id number] cc: CELI DUNCAN ; Rolando Boss D.P.M. The [place] [id number] Patient Name: JUAN MIGUEL JENNINGS MRN: [id number]:[id number] date: 1950 Sex: M Assigned Patient Location: [facility] Current Patient Location: [facility] Accession/Order Number: [id number] Exam Date: 12/28/2024 15:02 Report Date: 12/28/2024 15:03 At the request of: ROLANDO BOSS DPM Procedure: XR chest 2V Plain film chest [...] Palacios M.D. 12/28/2024 3:03 PM Dictation Location: [place] [address] Electronically authenticated by: [id number] Y Date: :03 Dictated By: Tomer Palacios D.O. Signed By:12/28/24 1506 DD/ 1503 TD/TT: Supervisor [employer]spring Fabrication: us Generic External Data Provider [facility] Final Result documented in this encounter Visit Diagnoses Not on filedocumented in this encounter Additional Health Concerns Assessment Noted Time PHQ-9 Depression Total Score: 2 07/25/19 25 9:00 AM EST documented as of this encounter Care Teams Power Tong Operator Relationship Specialty Start Date End Date Celi Duncan MD [address] [place] [address] PCP - General Family Medicine 10/25/22 Celi Duncan MD [address] [place] [address] PCP - ACO Reach 08/05/23 Jr. Julio Henson DO [address] [place] [address] Referring Physician Orthopaedic Surgery 05/17/23 Alberto Ibrahim DPM [address] [place] [address] Referring Physician Podiatry 05/17/23 Julio Huddleston MD [address] [place] [phone] Referring Physician Family Medicine 07/25/24 Hudson Stevenson MD [address] [place] [address] Referring Physician Urology 07/25/24 Kitty Edmond OD [address] [place] [address] Referring Physician Optometry 07/25/24 Korin Kraft, ARUN [address] [address] Registered Nurse Family Medicine 12/24/24 12/31/24 documented as of this encounter
--- OUTSIDE RECORDS SUMMARY | 2025-01-04 09:19 | XMS_ITS | Encounter Summary ---
Author Organization [facility] Address [address] [place] [address] Care Team Providers Care Division Director Name Role Phone Jordan Wong MD Primary Care Provider Mitch Mello MD Unavailable [phone] Jr. Julio Henson DO Unavailable [phone] Alberto Ibrahim DPM Unavailable [phone] Jordan Wong MD Unavailable [phone] Julio Huddleston MD Unavailable [phone] Hudson Stevenson MD Unavailable Kitty Edmond OD [...] PM EST Narrative 05/22/2024 5:07 [place] [address] Cardiology Report Signed Patient: JUAN MIGUEL JENNINGS MR#: [id number] : 1950 Acct:[id number] Age/Sex: 74 / M ADM Date: 05/22/24 Loc: CARD Attending Dr: PAUL WEN APRN Ordering Physician: PAUL WEN APRN Date of Service: 05/22/24 Procedure(s): CA echo doppler complete Accession Number(s): [id number] cc: JORDAN WONG MELINDA APRN Patient Name: JUAN MIGUEL JENNINGS MR#: [id number] : 1950 Exam Date: 05/22/2024 Ordering Doctor: [...] M.D. Signed By: 05/22/241706 DD/ 05 TD/TT: Plasma Table Operator: Procedure Note Radiology, Radiologist, MD - 05/22/2024 [place] [address] Cardiology Report Signed Patient: JUAN MIGUEL JENNINGS R#: [id number] : 1950cct:[id number] Age/Sex: 74 / MADM Date: 05/22/24 Loc: CARD Attending Dr: PAUL WEN APRN Ordering Physician: PAUL WEN APRN Date of Service: 05/22/24 Procedure(s): CA echo doppler complete Accession Number(s): [id number] cc: JORDAN WONG ; PAUL WEN APRN Patient Name: JUAN MIGUEL JENNINGS MR#: [id number] : 1950 Exam Date: 05/22/2024 Ordering Doctor: PAUL WEN [facility] ECHOCARDIOGRAM REPORT PROCEDURE: CA ECHO DOPPLER COMPLETE [...] Diego M.D. Signed By:05/22/241706 DD/ 05 TD/TT: Plasma Table Operator: [facility] External Data Provider [facility] Final Result * (ABNORMAL) ALL TESTOSTERONE (05/22/2024 8:39 AM EST) [facility] TESTOSTERONE 91(A) 264 - 916 ng/dL [facility] Comment: Adult male reference interval is based on a population of healthy nonobese males (BMI <30) between 19 and 39 years old. Lonnie et.al. JCEM 2017,102;8360-4380. PMID: [id number]. Performed at: [address], [place], [place] [id number] Tourism Radio Presenter: Zeke Almaguer PhD, Phone: [phone] 05/22/2024 8:39 AM EST 05/22/2024 8:40 AM EST Narrative [facility] - 05/23/2024 11:08 AM EST us Generic External Data Provider [facility] F inal Result JONN [facility] documented in this encounter Visit Diagnoses Not on filedocumented in this encounter Additional Health Concerns Assessment Noted Time PHQ-9 Depression Total Score: 0 05/17/20 9:00 AM EST documented as of this encounter Care Teams Division Director Relationship Specialty Start Date End Date Jordan Wong MD [address] [facility] [address] [place] [address] PCP - General Family Medicine 10/25/22 Jordan Wong MD [address] [facility] [address] [place] [address] PCP - ACO Reach 08/05/23 Mitch Mello MD [address] [place] [address] Referring Physician Cardiology 05/17/23 07/24/24 Jr. Julio Henson DO [address] [facility] [address] [place] [address] Referring Physician Orthopaedic Surgery 05/17/23 Alberto Ibrahim DPM [address] [place], [place] [phone] Referring Physician Podiatry 05/17/23 Julio Huddleston MD [address] [place] [phone] Referring Physician Family Medicine 07/25/24 Hudson Stevenson MD [address] [place] [address] Referring Physician Urology 07/25/24 Kitty Edmond OD [address] [place] [address] Referring Physician Optometry 07/25/24 Korin Kraft, ARUN [address] [place] [address] Registered Nurse Family Medicine 12/24/24 12/31/24 documented as of this encounter
--- OUTSIDE RECORDS SUMMARY | 2025-01-04 09:19 | XMS_ITS | Encounter Summary ---
Author Organization [facility] Address [address] [place] [address] Care Team Providers Care Passenger Rate Clerk Name Role Phone Jordan Wong MD Primary Care Provider Jr. Julio Henson DO Unavailable Alberto Ibrahim DPM Unavailable Jordan Wong MD Unavailable Julio Huddleston MD Unavailable Hudson Stevenson MD Unavailable Kitty Edmond OD Unavailable Korin Kraft RN Unavailable [phone] Reason for Visit * Reason Onset Date Comments Care Coordination 12/24/2024 Encounter Details Date Type Department Care Team (Late st Contact Info) Description 12/24/2024 Telephone [facility] [place] [address] Family Medicine 112 [facility] 100 [place] [address] Jordan Wong MD 112 [facility] 100 [place] [address] Care Coordination Social History Tobacco Use Types [...] encounter Miscellaneous Notes * Telephone Encounter - Liasha Castaneda - 12/24/2024 4:06 PM EDT Patient notified * Telephone Encounter - Jordan Wong MD - 12/24/2024 11:16 AM EDT Let him know I sent this to [facility]. We have not prescribed since 2022. [...] days and is miserable. Please send to [facility] in [place]. documented in this encounter Plan of Treatment Not on file documented as of this encounter Visit Diagnoses Diagnosis Chronic pain syndrome- Primary documented in this encounter Additional Health Concerns Assessment Noted Time PHQ-9 Depression Total Score: 2 07/25/19 25 9:00 AM EST documented as of this encounter Care Teams Passenger Rate Clerk Relationship Specialty Start Date End Date Jordan Wong MD [address] [place] [address] PCP - General Family Medicine 10/25/22 Jordan Wong MD [address] [place] [address] PCP - ACO Reach 08/05/23 Jr. Julio Henson DO [address] [place] [address] Referring Physician Orthopaedic Surgery 05/17/23 Alberto Ibrahim DPM [address] [facility] [place] [address] Referring Physician Podiatry 05/17/23 Julio Huddleston MD [address] [place] [phone] Referring Physician Family Medicine 07/25/24 Hudson Stevenson MD 290 [place] [address] Referring Physician Urology 07/25/24 Kitty Edmond OD [address] [facility] [place] [address] Referring Physician Optometry 07/25/24 Korin Kraft, ARUN [address] [place] [address] Registered Nurse Family Medicine 12/24/24 12/31/24 documented as of this encounter
--- OUTSIDE RECORDS SUMMARY | 2025-01-04 09:19 | XMS_ITS | Encounter Summary ---
Author Organization [facility] Address [address] [place] [address] Care Team Providers Care Field Applications Specialist Name Role Phone Jordan Wong MD Primary Care Provider Mitch Mello MD Unavailable Jr. Julio Henson DO Unavailable [phone] Alberto Ibrahim DPM Unavailable [phone] Jordan Wong MD Unavailable [phone] Julio Huddleston MD Unavailable [phone] Hudson Stevenson MD Unavailable Kitty Edmond OD Unavailable Korin Kraft RN Unavailable Encounter Details Date Type Department Care Team (Late st Contact Info) Description 10/28/2023 Abstract [facility] [place] [address] Family Medicine [address] [facility] [place] [address] Jordan Wong MD 112 [facility] 100 [place] [address] Social History Tobacco Use Types Packs/Day Years [...] documented as of this encounter Care Teams Field Applications Specialist Relationship Specialty Start Date End Date Jordan Wong MD 112 [facility] 100 [place] [address] PCP - General Family Medicine 10/25/22 Jordan Wong MD [address] [address] PCP - ACO Reach 08/05/23 Mitch Mello MD [address] [place] [address] Referring Physician Cardiology 05/17/23 07/24/24 Jr. Julio Henson DO [address] [address] Referring Physician Orthopaedic Surgery 05/17/23 Alberto Ibrahim DPM [facility] [place] [address] Referring Physician Podiatry 05/17/23 Julio Huddleston MD [address] [place] [address] Referring Physician Family Medicine 07/25/24 Hudson Stevenson MD [address] [place] [phone] Referring Physician Urology 07/25/24 Kitty Edmond OD [address] [facility] [place] [address] Referring Physician Optometry 07/25/24 Korin Kraft, RN [address] [facility] 230 [place] [address] Registered Nurse Family Medicine 12/24/24 12/31/24 documented as of this encounter
--- OUTSIDE RECORDS SUMMARY | 2025-01-04 09:19 | XMS_ITS | Clinical Summary ---
Author Organization [facility] Address [address] [facility], [address] [place] [address] Care Team Providers Care Field Case Manager Name Role Phone Jordan Wong MD Primary Care Provider [phone] Allergies Active Allergy Reactions Criticality Noted Date [...] 10/01/2015 S/P JORY - LCX & RCA ([id number]. kabour) 05/13 S/P cardiac cath-05/13/14-Dr. 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 Resolved Problems Problem Noted Date Diagnosed Date Resolved Date Screening for colorectal cancer 02/12/2014 04/03/2018 Encounters Date Type Department Care Team Description 10/17/2024 1:00 PM EDT Office Visit [facility] Part of [address] [address] Newton Stein MD Anal cancer [...] Info) Description 02/22/2025 1:00 PM EDT Appointment [facility] [address] [place] [address] phlebotomy Health Maintenance Due Date Last [...] 4.00 ng/mL [facility] Comment: Performed at [facility] [address] [place] [address] [facility] [address] [place] [address] CLIA No. [id number] CAP Accreditation No. [id number] Machine Maintenance: Clint Tamez M.D. 10/13/2018 9:50 AM EDT [...] of their HBA1c result. Performed at [address] [place] [address] ([phone] BLOOD SPECIMEN / Unknown 08/04/2016 7:05 PM EST 08/04/2016 10:33 PM EST us Elton Dawson MD CHEMISTRY ORDERABLES Final Resu lt [facility] [address] [phone] [facility] * US ABDOMINAL LIMITED (04/15/2014 8:53 AM EST) Anatomical Region Laterality Modality Abdomen Other 04/15/2014 8:53 AM EST Narrative 04/15/2014 9:13 AM EST FINAL Procedure: [facility] Apr 15 2014 8:53AM [id number] US ABD LIMITED Reason for Exam: ^polycythemia, [...] kidneys reveals no hydronephrosis Report Transcribed by: [facility] on Apr 15 2014 9:13A Read by: CHAPIN BAUTISTA M.D. [id number] on Apr 15 2014 9:13A Electronically Signed by: DR. CHAPIN BAUTISTA M.D. on: Apr 15 2014 9:13A Procedure Note Chapin Bautista MD - 04/15/2014 FINAL Procedure: [facility] Apr 15 2014 8:53AM [id number] US ABD LIMITED Reason for Exam: ^polycythemia, [...] kidneys reveals no hydronephrosis Report Transcribed by: [facility] on Apr 15 2014 9:13A Read by: CHAPIN BAUTISTA M.D. [id number] on Apr 15 2014 9:13A Electronically Signed by: DR. CHAPIN BAUTISTA M.D. on: Apr 15 2014 9:13A Gilda Conner MD [facility] ORDERABLES Final Res ult from Last 3 Months or Most Recently Relevant to Health Maintenance Insurance [employer] MEDICARE SUPP Advance Directives Documents on File Type Date Recorded Patient Resource Conservationist Expl anation ACP-Power of [employer] Cooper 08/31/2013 9:46 AM ACP-Advance Directive 08/31/2013 9:46 [...] 2:36 PM 05/13/2014 9:20 PM Care Teams Field Case Manager Relationship Specialty Start Date End Date Jordan Wong MD PCP - General 07/25/19
--- OUTSIDE RECORDS SUMMARY | 2025-01-04 09:19 | XMS_ITS | Encounter Summary ---
Author Organization [facility] Address [address] [facility] [place] [address] Care Team Providers Care Aquaculture Director Name Role Phone Celi Duncan MD Primary Care Provider [phone] Jr. Julio Henson DO Unavailable [phone] Alberto Ibrahim DPM Unavailable [phone] Celi Duncan MD Unavailable [phone] Julio Huddleston MD Unavailable [phone] Hudson Stevenson MD Unavailable [phone] Kitty Edmond OD Unavailable Encounter Details Date Type Department Care Team (Late st Contact Info) Description 01/01/2025 Clinisync Result Encounter [facility] External [...] MIN 3V 01/01/2025 3:0 4 PM EDT documented in this encounter Results * XR FOOT RT MIN 3V (01/01/2025 3:04 PM EDT) Anatomical Region Laterality Modality Other 01/01/2025 3:04 PM EDT Narrative 01/01/2025 3:06 [place] [address] XRay Report Signed Patient: JUAN MIGUEL JENNINGS MR#: [id number] : 1950 Acct:[id number] Age/Sex: 74 / M ADM Date: 01/01/25 Loc: SURGOUT Attending Dr: Rolando Boss D.P.M. Ordering Physician: Rolando Boss D.P.M. Date of Service: 01/01/25 Procedure(s): XR foot RT min 3V Accession Number(s): [id number] cc: CELI DUNCAN ; Rolando Boss D.P.M. [place] [address] Patient Name: JUAN MIGUEL JENNINGS MRN: [id number] date: 1950 Sex: M Assigned Patient Location: [facility] Current Patient Location: Accession/Order Number: [id number] Exam Date: 01/01/2025 15:03 Report Date: 01/01/2025 15:04 At the request of: ROLANDO BOSS DPArin Procedure: XR foot RT min [...] Jr., D.O. 01/01/2025 3:04 PM Dictation Location: [place] [address] Electronically authenticated by: [id number] Y Date: 01/01/2025 15:04 Dictated By: John Pike M.D. Signed By: 01/01/25 1506 DD/ 1504 TD/TT: Data Compiler: Procedure Note Radiology, Radiologist, MD - 01/01/2025 [place] [address] XRay Report Signed Patient: JUAN MIGUEL JENNINGS R#: [id number] : 1950cct:[id number] Age/Sex: 74 / MADM Date: 01/01/25 Loc: SURGOUT Attending Dr: Rolando Boss D.P.M. Ordering Physician: Rolando Boss D.P.M. Date of Service: 01/01/25 Procedure(s): XR foot RT min 3V Accession Number(s): [id number] cc: CELI DUNCAN ; Rolando Boss D.P.M. The [place] [address] Patient Name: JUAN MIGUEL JENNINGS MRN: [id number] date: 1950 Sex: M Assigned Patient Location: [facility] Current Patient Location: Accession/Order Number: [id number] Exam Date: 01/01/2025 15:03 Report Date: 01/01/2025 15:04 At the request of: ROLANDO BOSS DPM Procedure: XR foot RT min 3V RIGHT [...] Jr., D.O. 01/01/2025 3:04 PM Dictation Location: [place] [address] Electronically authenticated by: [id number] Y Date: 5:04 Dictated By: Jonh Pike M.D. Signed By:01/01/25 1506 DD/ 1504 TD/TT: Data Compiler: us Generic External Data Provider [facility] Final Result documented in this encounter Visit Diagnoses Not on filedocumented in this encounter Additional Health Concerns Assessment Noted Time PHQ-9 Depression Total Score: 2 07/25/19 25 9:00 AM EST documented as of this encounter Care Teams Aquaculture Director Relationship Specialty Start Date End Date Celi Duncan MD 112 [facility] 100 [place] [address] PCP - General Family Medicine 10/25/22 Celi Duncan MD 112 [facility] [address] [place] [address] (Fax) PCP - ACO Reach 08/05/23 Jr. Julio Henson DO [address] [place] [address] Referring Physician Orthopaedic Surgery 05/17/23 Alberto Ibrahim DPM 1900 [place] [address] Referring Physician Podiatry 05/17/23 Julio Huddleston MD 135[address] [place] [address] Referring Physician Family Medicine 07/25/24 Hudson Stevenson MD 290 [place] [address] Referring Physician Urology 07/25/24 Kitty Edmond OD [address] [place] [address] Referring Physician Optometry 07/25/24 documented as of this encounter
--- OUTSIDE RECORDS SUMMARY | 2025-01-04 09:19 | XMS_ITS | Encounter Summary ---
Author Organization [facility] Address [address] [place] [address] Care Team Providers Care Salesperson Men'S [employer] Boys' Clothing Name Role Phone Jordan Wong MD Primary Care Provider [phone] Jr. Julio Henson DO Unavailable [phone] Alberto Ibrahim DPM Unavailable [phone] Jordan Wong MD Unavailable [phone] Julio Huddleston MD Unavailable [phone] Hudson Stevenson MD Unavailable Kitty Edmond OD Unavailable Korin Kraft RN Unavailable [phone] Encounter Details Date Type Department Care Team (Late st Contact Info) Description 12/31/2024 Patient Outreach [facility] [address] [place] [phone] Korin Kraft, RN [address] [place] [address] Social History Tobacco Use Types Packs/Day Years [...] on file documented as of this encounter Progress Notes * Korin Kraft RN - 12/31/2024 9:41 AM EDT Received CCM Identified for pt, identified by Health Plan Chart reviewed. Called pt, LM, requested call back <December 31, 2024, 11:55 - Korin Kraft RN> CCM identified. Pt LM for CM, returned call to pt, Spoke to pt regarding CCM services, declined services. States he has multiple nurses close to him and a daughter is [place], feels he is able to take care of his health care needs. Discussed if he feels he needs assistance he can call PCP office. documented in this encounter Plan of Treatment Not on file documented as of this encounter Visit Diagnoses Diagnosis Chronic pain syndrome- Primary Essential hypertension Unspecified essential hypertension Hx of custodial use of blood thinners Encounter for long-term (current) use of anticoagulants documented in this encounter Additional Health Concerns Assessment Noted Time PHQ-9 Depression Total Score: 2 07/25/19 25 9:00 AM EST documented as of this encounter Care Teams Salesperson [employer] Relationship Specialty Start Date End Date Jordan Wong MD [address] [address] (Fax) PCP - General Family Medicine 10/25/22 Jordan Wong MD [address] [address] PCP - ACO Reach 08/05/23 Jr. Julio Henson DO [address] [facility] 150 [place] [address] Referring Physician Orthopaedic Surgery 05/17/23 Alberto Ibrahim DPM [address] [place] [address] Referring Physician Podiatry 05/17/23 Julio Huddleston MD [address] [place] [address] Referring Physician Family Medicine 07/25/24 Hudson Stevenson MD 290 [place], [place] [phone] Referring Physician Urology 07/25/24 Kitty Edmond OD [address] [place] [address] Referring Physician Optometry 07/25/24 Korin Kraft, ARUN [address] [place] [address] Registered Nurse Family Medicine 12/24/24 12/31/24 documented as of this encounter
--- OUTSIDE RECORDS SUMMARY | 2025-01-04 09:19 | XMS_ITS | Encounter Summary ---
Author Organization [facility] Address [address] [place] [address] Care Team Providers Care Shirt Sorter Name Role Phone Jordan Wong MD Primary Care Provider [phone] Mitch Mello MD Unavailable Jr. Julio Henson DO Unavailable Alberto Ibrahim DPM Unavailable Jordan Wong MD Unavailable Julio Huddleston MD Unavailable Hudson Stevenson MD Unavailable [phone] Kitty Edmond OD Unavailable Korin Kraft RN Unavailable Encounter Details Date Type Department Care Team (Late st Contact Info) Description 05/03/2023 Orders Only [facility] [place] [address] Family Medicine [address] [facility] [place] [address] Newton Stevenson MD [address] [place], [place] [address] Social History Tobacco Use Types Packs/Day Years [...] on filedocumented in this encounter Care Teams Shirt Sorter Relationship Specialty Start Date End Date Jordan Wong MD [address] [address] (Fax) PCP - General Family Medicine 10/25/22 Jordan Wong MD [address] [address] PCP - ACO Reach 08/05/23 Mitch Mello MD 1100 [place], [place] [phone] Referring Physician Cardiology 05/17/23 07/24/24 Jr. Julio Henson DO 112 [facility] 150 [place] [address] Referring Physician Orthopaedic Surgery 05/17/23 Alberto Ibrahim DPM 1900 [place], [place] [phone] Referring Physician Podiatry 05/17/23 Julio Huddleston MD 1355 [place] [address] Referring Physician Family Medicine 07/25/24 Hudson Stevenson MD [address] [place] [phone] Referring Physician Urology 07/25/24 Kitty Edmond OD 2331 [facility] [place] [address] Referring Physician Optometry 07/25/24 Korin Kraft, ARUN [address] [place] [address] Registered Nurse Family Medicine 12/24/24 12/31/24 documented as of this encounter
--- OUTSIDE RECORDS SUMMARY | 2025-01-04 09:19 | XMS_ITS | Encounter Summary ---
Author Organization [facility] Address [address] [place] [address] Care Team Providers Care Hand Spinner Name Role Phone Jordan Wong MD Primary Care Provider [phone] Mitch Mello MD Unavailable Jr. Julio Henson DO Unavailable Alberto Ibrahim DPM Unavailable Jordan Wong MD Unavailable Julio Huddleston MD Unavailable Hudson Stevenson MD Unavailable Kitty Edmond OD Unavailable Korin Kraft RN Unavailable Encounter Details Date Type Department Care Team (Late st Contact Info) Description 04/14/2023 Orders Only [facility] [place] 521 Family Medicine [address] [place] [address] Julio Huddleston MD [address] [place] [address] Social History Tobacco Use Types Packs/Day Years [...] on filedocumented in this encounter Care Teams Hand Spinner Relationship Specialty Start Date End Date Jordan Wong MD [address] [address] PCP - General Family Medicine 10/25/22 Jordan Wong MD [address] [address] PCP - ACO Reach 08/05/23 Mitch Mello MD [address] [place] [phone] Referring Physician Cardiology 05/17/23 07/24/24 Jr. Julio Henson DO [address] [address] Referring Physician Orthopaedic Surgery 05/17/23 Alberto Ibrahim DPM [address] [place] [address] Referring Physician Podiatry 05/17/23 Julio Huddleston MD 1355 [place] [address] Referring Physician Family Medicine 07/25/24 Hudson Stevenson MD [address] [place] [id number] Referring Physician Urology 07/25/24 Kitty Edmond OD 2331 [facility] [place] [address] Referring Physician Optometry 07/25/24 Korin Kraft, ARUN [address] [place] [address] Registered Nurse Family Medicine 12/24/24 12/31/24 documented as of this encounter
--- OUTSIDE RECORDS SUMMARY | 2025-01-04 09:19 | XMS_ITS ---
Author Organization [facility] Address [address] [facility] [place] [address] Care Team Providers Care Steaming Machine Operator Name Role Phone Jordan Wong MD Primary Care Provider [phone] Jr. Julio Henson DO Unavailable [phone] Alberto Ibrahim DPM Unavailable [phone] Jordan Wong MD Unavailable [phone] Julio Huddleston MD Unavailable [phone] Hudson Stevenson MD Unavailable [phone] Kitty dEmond OD Unavailable Chronic Care Management (CCM) Status:Declined (Declined) Start date:12/24/2024 Enrollment reason:Identified by Health Plan End date:12/31/2024 Decline reason:Patient declined Overview Please assess for Care Management needs. <December 31, 2024, 12:00 - Korin Kraft RN> CCM identified. Spoke to pt regarding CCM services, declined services. Has multiple nurses close to him and a daughter is [place] Continued Care and Services Coordination
--- OUTSIDE RECORDS SUMMARY | 2025-01-04 09:19 | XMS_ITS | Encounter Summary ---
Author Organization [facility] Address [address] [place] [address] Care Team Providers Care System Archive Analyst Name Role Phone Celi Wong MD Primary Care Provider [phone] Mitch Mello MD Unavailable [phone] Jr. Julio Henson DO Unavailable [phone] Alberto Ibrahim DPM Unavailable [phone] Celi Wong MD Unavailable [phone] Julio Huddleston MD Unavailable [phone] Hudson Stevenson MD Unavailable Kitty Edmond OD Unavailable Korin Kraft RN Unavailable [phone] Encounter Details Date Type Department Care Team [...] AM EST Narrative 05/18/2024 10:07 [place] [address] Nuclear Medicine Report Signed Patient: JUAN MIGUEL JENNINGS MR#: [id number] : 1950 Acct:[id number] Age/Sex: 74 / M ADM Date: 05/17/24 Loc: CARD Attending Dr: PAUL WEN APRN Ordering Physician: PAUL WEN APRN Date of Service: 05/17/24 Procedure(s): NM zainab perf SPECT rest str Accession Number(s): [id number] cc: CELI WONG ; PAUL WEN APRN Patient Name: JUAN MIGUEL JENNINGS MR#: [id number] : 1950 Exam Date: 05/17/2024 Ordering Doctor: [...] LOCATION: Mid-anterior. Mid-inferior. Apical anterior. Apical inferior. [place]. SIZE: Large (5 or more segments). SEVERITY: [...] Signed By: 05/18/24 1007 DD/ 1006 TD/TT: Bilingual Spanish Inbound Sales: Procedure Note Radiology, Radiologist, - 05/18/2024 [place] [address] Nuclear Medicine Report Signed Patient: JUAN MIGUEL JENNINGS JMR#: [id number] : 1950cct:[id number] Age/Sex: 74 / MADM Date: 05/17/24 Loc: CARD Attending Dr: PAUL WEN APRN Ordering Physician: PAUL WEN APRN Date of Service: 05/17/24 Procedure(s): NM zainab perf SPECT rest str Accession Number(s): [id number] cc: CELI WONG ; PAUL WEN APRN Patient Name: JUAN MIGUEL JENNINGS MR#: [id number] : 1950 Exam Date: 05/17/2024 Ordering Doctor: PAUL WEN [facility] RADIOLOGY REPORT PROCEDURE: NM ZAINAB PERF [...] LOCATION: Mid-anterior. Mid-inferior. Apical anterior. Apical inferior. [place]. SIZE: Large (5 or more segments). SEVERITY: [...] M.D. Signed By:05/18/24 1007 DD/ 1006 TD/TT: Bilingual Spanish Inbound Sales: us Generic External Data Provider [facility] Final Result documented in this encounter Visit Diagnoses Not on filedocumented in this encounter Additional Health Concerns Assessment Noted Time PHQ-9 Depression Total Score: 0 05/17/20 23 9:00 AM EST documented as of this encounter Care Teams System Archive Analyst Relationship Specialty Start Date End Date Celi Wong MD [address] [place] [address] PCP - General Family Medicine 10/25/22 Celi Wong MD [address] [place] [address] PCP - ACO Reach 08/05/23 Mitch Mello MD 1100 [place] [address] Referring Physician Cardiology 05/17/23 07/24/24 Jr. Julio Henson DO [address] [place] [address] Referring Physician Orthopaedic Surgery 05/17/23 Alberto Ibrahim DPM 1900 [facility] [place] [address] Referring Physician Podiatry 05/17/23 Julio Huddleston MD 1355 [place] [address] Referring Physician Family Medicine 07/25/24 Hudson Stevenson MD [address] [place], [place] [address] Referring Physician Urology 07/25/24 Kitty Edmond OD [address] [place] [address] Referring Physician Optometry 07/25/24 Korin Kraft, ARUN [address] [place] [address] Registered Nurse Family Medicine 12/24/24 12/31/24 documented as of this encounter
--- OUTSIDE RECORDS SUMMARY | 2025-01-04 09:19 | XMS_ITS | Encounter Summary ---
Author Organization [facility] Address [address] [place] [address] Care Team Providers Care Investigation Clerk Name Role Phone Jordan Wong MD Primary Care Provider Mitch Mello MD Unavailable [phone] Jr. Julio Henson DO Unavailable Alberto Ibrahim DPM Unavailable Jordan Wong MD Unavailable [phone] Julio Huddleston MD Unavailable [phone] Hudson Stevenson MD Unavailable Kitty Edmond OD Unavailable Korin Kraft RN Unavailable Encounter Details Date Type Department Care Team (Late st Contact Info) Description 03/07/2023 Abstract GIOVANNI Robbins Podiatry 1900 [place] [address] Alberto Ibrahim DPArin 1900 [place], [place] [id number] Social History Tobacco Use Types Packs/Day Years [...] on filedocumented in this encounter Care Teams Investigation Clerk Relationship Specialty Start Date End Date Jordan Wong MD 112 [facility] 100 [place] [address] PCP - General Family Medicine 10/25/22 Jordan Wong MD [address] [address] PCP - ACO Reach 08/05/23 Mitch Mello MD 1100 [place] [address] Referring Physician Cardiology 05/17/23 07/24/24 Jr. Julio Henson DO [address] [address] Referring Physician Orthopaedic Surgery 05/17/23 Alberto Ibrahim DPM [facility] [place] [address] Referring Physician Podiatry 05/17/23 Julio Huddleston MD [address] [place] [address] Referring Physician Family Medicine 07/25/24 Hudson Stevenson MD [address] [place] [id number] Referring Physician Urology 07/25/24 Kitty Edmond OD 2331 [place] [address] Referring Physician Optometry 07/25/24 Korin Kraft, RN [address] William [address] [place] [address] Registered Nurse Family Medicine 12/24/24 12/31/24 documented as of this encounter
--- OUTSIDE RECORDS SUMMARY | 2025-01-04 09:19 | XMS_ITS | Encounter Summary ---
Author Organization [facility] Address [address] [place] [address] Care Team Providers Care [id number] Armor Crewman Name Role Phone Jordan Wong MD Primary Care Provider Mitch Mello MD Unavailable Jr. Julio Henson DO Unavailable Alberto Ibrahim DPM Unavailable [phone] Jordan Wong MD Unavailable Julio Huddleston MD Unavailable Hudson Stevenson MD Unavailable Kitty Edmond OD Unavailable Korin Kraft RN Unavailable [phone] Encounter Details Date Type Department Care Team (Late st Contact Info) Description 05/25/2023 Orders Only [facility] [place] 521 Family Medicine [address] [place] [address] Jordan Wong MD 112 [facility] [address] [place] [address] Social History Tobacco Use Types Packs/Day Years [...] documented as of this encounter Care Teams [id number] Armor Crewman Relationship Specialty Start Date End Date Jordan Wong MD 112 [facility] 100 [place] [address] PCP - General Family Medicine 10/25/22 Jordan Wong MD [address] [address] PCP - ACO Reach 08/05/23 Mitch Mello MD [address] [place], [place] [phone] Referring Physician Cardiology 05/17/23 07/24/24 Jr. Julio Henson DO [address] [address] Referring Physician Orthopaedic Surgery 05/17/23 Alberto Ibrahim DPM [address] [place], [place] [address] [address] Referring Physician Podiatry 05/17/23 Julio Huddleston MD [address] [place] [address] Referring Physician Family Medicine 07/25/24 Hudson Stevenson MD [address] [place] [phone] Referring Physician Urology 07/25/24 Kitty Edmond OD 2331 [facility] [place] [address] Referring Physician Optometry 07/25/24 Korin Kraft, RN [address] William [address] [place] [address] Registered Nurse Family Medicine 12/24/24 12/31/24 documented as of this encounter
--- OUTSIDE RECORDS SUMMARY | 2025-01-04 09:19 | XMS_ITS | Encounter Summary ---
Author Organization [facility] Address [address] [place] [address] Care Team Providers Care Spring Fitter Helper Name Role Phone Jordan Wong MD Primary Care Provider Mitch Mello MD Unavailable Jr. Julio Henson DO Unavailable Alberto Ibrahim DPM Unavailable [phone] Jordan Wong MD Unavailable Julio Huddleston MD Unavailable [phone] Hudson Stevenson MD Unavailable Kitty Edmond OD Unavailable Korin Kraft RN Unavailable Encounter Details Date Type Department Care Team (Late st Contact Info) Description 09/30/2023 Orders Only [facility] [place] 521 Family Medicine [address] [facility] [place] [address] Kitty Edmond, OD 2331 [place] [address] Social History Tobacco Use Types Packs/Day Years [...] documented as of this encounter Care Teams Spring Fitter Helper Relationship Specialty Start Date End Date Jordan Wong MD [address] [address] PCP - General Family Medicine 10/25/22 Jordan Wong MD [address] [address] PCP - ACO Reach 08/05/23 Mitch Mello MD 1100 [place] [address] Referring Physician Cardiology 05/17/23 07/24/24 Jr. Julio Henson DO [address] [facility] 150 [place] [address] Referring Physician Orthopaedic Surgery 05/17/23 Alberto Ibrahim DPM [address] [place] [address] Referring Physician Podiatry 05/17/23 Julio Huddleston MD [address] [place] [address] Referring Physician Family Medicine 07/25/24 Hudson Stevenson MD 290 [place] [address] Referring Physician Urology 07/25/24 Kitty Edmond OD [address] [place] [address] Referring Physician Optometry 07/25/24 Korin Kraft, RN [address] [facility] 230 [place] [address] Registered Nurse Family Medicine 12/24/24 12/31/24 documented as of this encounter
--- OUTSIDE RECORDS SUMMARY | 2025-01-04 09:19 | XMS_ITS | Encounter Summary ---
Author Organization [facility] Address [address] [facility] [place] [address] Care Team Providers Care Tenon Machine Operator Name Role Phone Jordan Wong MD Primary Care Provider [phone] Jr. Julio Henson DO Unavailable [phone] Alberto Ibrahim DPM Unavailable [phone] Jordan Wong MD Unavailable [phone] Julio Huddleston MD Unavailable [phone] Hudson Stevenson MD Unavailable [phone] Kitty Edmond OD Unavailable Korin Kraft RN [...] Procedure Name Priority Date/Time Associated Diagnosis Comments SRMCOH PROTHROMBIN TIME INR W/O COUM Routine 12/28/2024 1:09 PM EDT [facility] APTT Routine 12/28/2024 1:09 PM EDT ALL CBC WITH AUTO DIFF Routine 12/28/2024 1:09 PM EDT ALL BASIC METABOLIC PANEL Routine 12/28/2024 1:09 PM EDT documented in this encounter Results * CCF APTT (12/28/2024 1:09 PM EDT) PARTIAL THROMBOPLASTIN TIME 30.4 22.3 - 36.2 sec TBH 12/28/2024 1:09 PM EDT 12/28/2024 1:11 PM EDT Narrative CLIN[facility]NC - 12/28/2024 2:11 PM EDT Generic External Data Provider CLINDILMA F inal Result [facility] * SRMCOH PROTHROMBIN TIME INR W/O COUM (12/28/2024 1:09 PM EDT) PROTHROMBIN TIME 10.7 9.0 - 11.6 sec TBH TBH INR 1.01 TBH Comment: DESIRED INR: 2.0-3.0 CONDITIONS NOT LISTED BELOW 2.5-3.5 FOR PROSTHETIC HEART VALVE REPLACEMENT 2.5-3.5 RECURRENT THROMBOSIS 12/28/2024 1:09 PM EDT 12/28/2024 1:11 PM EDT Narrative CLIN[facility]NC - 12/28/2024 2:11 PM EDT Generic External Data Provider CLINISYNC F inal Result Performing Organization Address [facility] de Phone Number CLINISYNC TB * (ABNORMAL) ALL BASIC METABOLIC PANEL (12/28/2024 [...] 0.70 - 1.30 mg/dL TBH TBH EGFR-AF CITIZEN [place] >60 >=60 mL/min/1.7 3m 2 TBH TBH EGFR-NON AF CITIZEN [place] >60 >=60 mL/min/1.7 3m 2 TBH BUN CREATININE RATIO 24.7 TBH CALCIUM 9.5 8.5 - 10.1 mg/dL TBH 12/28/2024 1:09 PM EDT 12/28/2024 1:11 PM EDT Narrative CLINISYNC - 12/28/2024 1:46 PM EDT Generic External Data Provider CLINISYNC F inal Result Performing Organization Address [facility] Co de Phone Number [facility] TB * (ABNORMAL) ALL CBC WITH AUTO DIFF (12/28/2024 1:09 PM EDT) TBH WBC 7.1 4.0 - 11.0 10 3/uL TBH TBH RBC 4.18(L) 4.70 - 6.10 10 6/uL TBH TBH HGB 13.8(L) 14.0 - 18.0 g/dL TBH TBH HCT 40.2(L) 42.0 - 54.0 % [...] Narrative CLINISYNC - 12/28/2024 1:46 PM EDT us Generic External Data Provider CLIN[facility]NC F inal Result [facility] documented in this encounter Visit Diagnoses Not on filedocumented in this encounter Additional Health Concerns Assessment Noted Time PHQ-9 Depression Total Score: 2 07/25/19 25 9:00 AM EST documented as of this encounter Care Teams Tenon Machine Operator Relationship Specialty Start Date End Date Jordan Wong MD [address] [place] [address] PCP - General Family Medicine 10/25/22 Jordan Wong MD [address] [place] [address] PCP - ACO Reach 08/05/23 Jr. Julio Henson DO [address] 150 [place] [address] Referring Physician Orthopaedic Surgery 05/17/23 Alberto Ibrahim DPM 1900 [facility] [place], [place] [phone] Referring Physician Podiatry 05/17/23 Julio Huddleston MD [address] [place] [address] Referring Physician Family Medicine 07/25/24 Hudson Stevenson MD 290 [place], [place] [phone] Referring Physician Urology 07/25/24 Kitty Edmond OD [address] [place] [address] Referring Physician Optometry 07/25/24 Korin Kraft, ARUN [address] [place] [address] Registered Nurse Family Medicine 12/24/24 12/31/24 documented as of this encounter
--- OUTSIDE RECORDS SUMMARY | 2025-01-04 09:19 | XMS_ITS | Encounter Summary ---
Author Organization [facility] Address [address] [place] [address] Care Team Providers Care Burner Hand Name Role Phone Jordan Wong MD Primary Care Provider [phone] Mitch Mello MD Unavailable Jr. Julio Henson DO Unavailable Alberto Ibrahim DPM Unavailable [phone] Jordan Wong MD Unavailable [phone] Julio Huddleston MD Unavailable Hudson Stevenson MD Unavailable Kitty Edmond OD Unavailable Korin Kraft RN Unavailable Encounter Details Date Type Department Care Team (Late st Contact Info) Description 10/25/2023 Orders Only [facility] [place] 521 Family Medicine [address] [facility] [place] [address] Newton Stevenson MD [address] [place] [address] Social History Tobacco Use Types Packs/Day Years [...] documented as of this encounter Care Teams Burner Hand Relationship Specialty Start Date End Date Jordan Wong MD [address] [place] [address] PCP - General Family Medicine 10/25/22 Jordan Wong MD [address] [place] [address] PCP - ACO Reach 08/05/23 Mitch Mello MD 1100 [place] [address] Referring Physician Cardiology 05/17/23 07/24/24 Jr. Julio Henson DO [address] 150 [place] [address] Referring Physician Orthopaedic Surgery 05/17/23 Alberto Ibrahim DPM 1900 [place] [address] Referring Physician Podiatry 05/17/23 Julio Huddleston MD 1355 [place] [address] Referring Physician Family Medicine 07/25/24 Hudson Stevenson MD 290 [place], [place] [phone] Referring Physician Urology 07/25/24 Kitty Edmond OD [address]331 [place] [address] Referring Physician Optometry 07/25/24 Korin Kraft, ARUN [address] [facility] 230 [place] [address] Registered Nurse Family Medicine 12/24/24 12/31/24 documented as of this encounter
--- OUTSIDE RECORDS SUMMARY | 2025-01-04 09:19 | XMS_ITS ---
Author Organization [facility] Address [address] [facility], [address] [place] [address] Care Team Providers Care Catering Server Name Role Phone Jordan Wong MD Primary [...] 10/01/2015 S/P JORY - LCX & RCA ([id number]-Vz. kabour) 05/13 S/P cardiac cath-05/13/14-Dr. landrum 05/13/2014 [...]
--- OUTSIDE RECORDS SUMMARY | 2025-01-04 09:19 | XMS_ITS | Encounter Summary ---
Author Organization [facility] Address [address] [place] [address] Care Team Providers Care Alligator Hunter Name Role Phone Jordan Wong MD Primary Care Provider Mitch Mello MD Unavailable Jr. Julio Henson DO Unavailable Alberto Ibrahim DPM Unavailable [phone] Jordan Wong MD Unavailable [phone] Julio Huddleston MD Unavailable [phone] Hudson Stevenson MD Unavailable Kitty Edmond OD Unavailable Korin Kraft RN Unavailable Encounter Details Date Type Department Care Team (Late st Contact Info) Description 05/21/2024 Abstract GIOVANNI Robbins Podiatry 1900 [place] [address] Alberto Ibrahim DPArin 1900 [place], [place] [id number] Social History Tobacco Use Types Packs/Day Years [...] documented as of this encounter Care Teams Alligator Hunter Relationship Specialty Start Date End Date Jordan Wong MD 112 [facility] 100 [place] [address] PCP - General Family Medicine 10/25/22 Jordan Wong MD 112 [facility] 100 [place] [address] PCP - ACO Reach 08/05/23 Mitch Mello MD [address] [place] [address] Referring Physician Cardiology 05/17/23 07/24/24 Jr. Julio Henson DO 112 [facility] 150 [place] [address] Referring Physician Orthopaedic Surgery 05/17/23 Alberto Ibrahim DPM 1900 [place], [place] [address] Referring Physician Podiatry 05/17/23 Julio Huddleston MD [address] [place] [phone] Referring Physician Family Medicine 07/25/24 Hudson Stevenson MD [address] [place] [phone] Referring Physician Urology 07/25/24 Kitty Edmond OD 2331 [place] [address] Referring Physician Optometry 07/25/24 Korin Kraft, RN [address] [place] [address] Registered Nurse Family Medicine 12/24/24 12/31/24 documented as of this encounter
== END 2025-01-04 09:17 | disposition home or self-care (01) ==
LOC: WC 09:16
PROVIDERS: PCP Family Medicine; Visit Provider Podiatrist Foot & Ankle Surgery
DX: E11.621 Type 2 diabetes mellitus with foot ulcer (principal); L97.512 Non-pressure chronic ulcer of other part of right foot with fat layer exposed
CPT/HCPCS: G0463

== ENCOUNTER 2025-01-11 08:43 | Outpatient (OUT) | payer MEDICARE, SELFPAY | END 2025-01-11 08:44 | disposition home or self-care (01) | LOC: WC 08:43 | PROVIDERS: PCP Family Medicine; Visit Provider Podiatrist Foot & Ankle Surgery | DX: E11.621 Type 2 diabetes mellitus with foot ulcer (principal); L97.512 Non-pressure chronic ulcer of other part of right foot with fat layer exposed | CPT/HCPCS: G0463 ==

== ENCOUNTER 2025-01-14 07:17 | Outpatient (OUT) | payer MEDICARE, SELFPAY ==
--- OUTSIDE RECORDS SUMMARY | 2010-08-31 06:30 | XMS_ITS | Encounter Summary ---
Author Organization [facility] Address [address] [facility], [address] [place] [address] Care Team Providers Care Can Capper Name Role Phone Unavailable Primary Care Provider Unavailabl e Encounter Details Date Type Department Care Team (Late Contact Info) Description 08/31/2010 6:30 AM EDT Hospital Encounter [facility] Department [address] [place] [address] Altaf Velázquez MD [address] [place] [address] Social History Tobacco Use Types Packs/Day [...] Info) Description 02/22/2025 1:00 PM EDT Appointment [facility] [address] [place] [address] phlebotomy documented as of this encounter Visit Diagnoses Not on filedocumented in this encounter
--- OUTSIDE RECORDS SUMMARY | 2013-08-17 02:10 | XMS_ITS | Encounter Summary ---
Author Organization [facility] Address [address], [address] [place] [address] Care Team Providers Care Cuff Cutter Name Role Phone Diego Bartlett MD Primary Care Provider [phone] Encounter Details Date Type Department Care Team (Late st Contact Info) Description 08/17/2013 2:10 AM EDT Hospital Encounter MTH PRE ADMIT [address] [phone] Peewee Westfall, DPM [address] [place] [address] Social History Tobacco Use Types Packs/Day Years [...] 1:00 PM EDT Appointment [facility] [address] [place] [phone] phlebotomy documented as of this encounter [...] 12 lead (08/17/2013 8:50 AM EDT) Pathologist [facility] Ventricular Rate 57 BPM [facility] Atrial Rate 57 BPM [facility] P-R Interval 174 ms [facility] RADIOLOGY QRS Duration 86 ms [facility] Q-T Interval 406 ms [facility] RADIOLOGY QTc Calculation (Bazett) 395 ms [facility] P [place] 64 degrees [facility] R [place] 26 degrees [facility] T [place] 46 degrees [facility] 08/17/2013 8:50 AM EDT Narrative [facility] - 08/17/2013 6:59 PM EDT Sinus bradycardiaOtherwise normal ECGWhen compared with ECG of 05-OCT-2010 08:57,No significant change was found Procedure Note 08/17/2013 Sinus bradycardiaOtherwise normal ECGWhen compared with ECG of [id number],No significant change was found us Peewee Westfall DPM ECG ORDERABLES Final Result [facility] * XR Chest Standard TWO VW (08/17/2013 8:50 AM EDT) Anatomical Region Laterality Modality Chest Radiographic Lynn ging 08/17/2013 8:50 AM EDT Narrative 08/17/2013 4:48 PM EDT FINAL Procedure: TRT Aug 17 2013 8:50AM [id number] CHEST PA AND LATERAL Reason for Exam: [...] Fish MD IMPRESSION: SEE ABOVE. Transcribed by: [facility] on Aug 17 2013 4:48P Read by: CHAPIN BAUTISTA M.D. [id number] on Aug 17 2013 11:15A Electronically Signed by: DR. CHAPIN BAUTISTA M.D. on: Aug 17 2013 4:48P Procedure Note Chapin Bautista MD - 08/17/2013 FINAL Procedure: TRT Aug 17 2013 8:50AM [id number] CHEST PA AND LATERAL Reason for Exam: [...] Fish MD IMPRESSION: SEE ABOVE. Transcribed by: [facility] on Aug 17 2013 4:48P Read by: CHAPIN BAUTISTA M.D. [id number] on Aug 17 2013 11:15A Electronically Signed by: DR. CHAPIN BAUTISTA M.D. on: Aug 17 2013 4:48P us Peewee Westfall DPM IMG DIAGNOSTIC IMAGING ORDERA BLES Edited Result - Final * (ABNORMAL) Urinalysis with microscopic (08/17/2013 8:28 AM EDT) Color, UA YELLOW YEL 08/17/2013 10:10 AM EDT [facility] Turbidity UA CLEAR CLEAR 08/17/2013 10:10 AM EDT [facility] Glucose, Ur NEGATIVE NEG 08/17/2013 10:10 AM EDT [facility] Bilirubin Urine NEGATIVE NEG 08/17/201 4 10:10 AM EDT [facility] Ketones, Urine NEGATIVE NEG 08/17/2013 10:10 AM EDT [facility] Specific [place], UA >1.030(H) 1.010 - 1.020 08/17/2013 10:10 AM EDT [facility] Urine Hgb NEGATIVE NEG 08/17/2013 10:10 AM EDT [facility] pH, UA 6.0 5.0 - 9.0 08/17/2013 10:10 AM EDT [facility] Protein, UA NEGATIVE NEG 08/17/2013 10:10 AM EDT [facility] Urobilinogen, Urine Normal NORM 08/17/2013 10:10 AM EDT [facility] Nitrite, Urine NEGATIVE NEG 08/17/2013 10:10 AM EDT [facility] Leukocyte Esterase, Urine NEGATIVE NEG 08/17/2013 10:10 AM EDT [facility] Urinalysis Comments NOT REPORTED [facility] - 08/17/2013 10:10 AM EDT [facility] WBC, UA 0 TO 2 0 - 5 /HPF 08/17/2013 10:10 AM EDT [facility] RBC, UA None 0 - 2 /HPF 08/17/2013 10:10 AM EDT [facility] Casts UA NOT REPORTED 0 - 2 /LPF [facility] Crystals, UA NOT REPORTED NONE /HPF [facility] Epithelial Cells, UA 0 TO 2 0 - 25 /HPF 08/17/2013 10:10 AM EDT [facility] Comment: Performed at [address] [place], [place] [id number] Renal Epithelial, UA NOT REPORTED 0 /HPF [facility] Bacteria, UA NOT REPORTED NONE [facility] Mucus, UA NOT REPORTED NONE [facility] Trichomonas NOT REPORTED NONE [facility] Amorphous, UA NOT REPORTED NONE [facility] Other Observations UA NOT REPORTED NREQ [facility] Yeast, UA NOT REPORTED NONE [facility] URINE SPECIMEN / Unknown 08/17/2013 8:28 AM EDT 08/17/2013 8:29 AM EDT Peewee Westfall DPArin URINE ORDERABLES Final Result [facility] [address] [place] [phone], [facility] [phone] [facility] * (ABNORMAL) Basic Metabolic Panel (08/17/2013 8:28 AM EDT) Glucose 135(H) 70 - 99 mg/dL 08/17/2013 9:30 AM EDT [facility] BUN 16 8 - 23 mg/dL 08/17/2013 9:30 AM EDT [facility] Creatinine 0.73 0.70 - 1.20 mg/dL 08/17/2013 9:30 AM EDT [facility] BUN/Creatinine Ratio 22(H) 9 - 20 08/17/2013 9:30 AM EDT [facility] Calcium 9.7 8.6 - 10.0 mg/dL 08/17/2013 9:30 AM EDT [facility] Sodium 138 136 - 145 mmol/L 08/17/2013 9:30 AM EDT [facility] Potassium 4.5 3.5 - 5.1 mmol/L 08/17/2013 9:30 AM EDT [facility] Chloride 104 98 - 107 mmol/L 08/17/2013 9:30 AM EDT [facility] CO2 26 20 - 31 mmol/L 08/17/2013 9:30 AM EDT [facility] Anion Gap NOT REPORTED mmol/L [facility] GFR Non- >60 >60 mL/min 08/17/2013 9:30 AM EDT [facility] GFR >60 >60 mL/min 08/17/2013 9:30 AM EDT [facility] GFR Comment 08/17/2013 9:30 AM EDT [facility] Comment: Average GFR for 60-69 years old: 85 mL/min/1.73sq m Chronic Kidney Disease: <60 mL/min/1.73sq m Kidney failure: <15 mL/min/1.73sq m GFR Staging 08/17/2013 9:30 AM EDT [facility] Comment: Stage 1: Some kidney damage normal GFR Stage 2: Mild kidney damage GFR 60-89 Stage 3: Moderate kidney damage GFR 30-59 Stage 4: Severe kidney damage GFR 15-29 Stage 5: Severe kidney damage GFR <15 ESRD - chronic treatment by dialysis or transplant Performed at [address] [place] [address] BLOOD SPECIMEN / Unknown 08/17/2013 8:28 AM EDT 08/17/2013 8:29 AM EDT Peewee Westfall DPArin CHEMISTRY ORDERABLES Final Re sult [place] [id number], [facility] [phone] [facility] * (ABNORMAL) CBC (08/17/2013 8:28 AM EDT) WBC 8.5 3.5 - 11.0 k/uL 08/17/2013 9:13 AM EDT [facility] RBC 5.32 4.5 - 5.9 m/uL 08/17/2013 9:13 AM EDT [facility] Hemoglobin 16.6 13.5 - 17.0 g/dL 08/17/2013 9:13 AM EDT [facility] Hematocrit 49.3 41 - 53 % 08/17/2013 9:13 AM EDT [facility] MCV 92.6 80 - 100 fL 08/17/2013 9:13 AM EDT [facility] MCH 31.2 26 - 34 pg 08/17/2013 9:13 AM EDT [facility] MCHC 33.7 31 - 37 g/dL 08/17/2013 9:13 AM EDT [facility] RDW 14.5(H) 10.0 - 14.0 % 08/17/2013 9:13 AM EDT [facility] Platelets 184 140 - 450 k/uL 08/17/2013 9:13 AM EDT [facility] Comment: Performed at [address] [place] [address] MPV NOT REPORTED 6.0 - 12.[address] [facility] BLOOD SPECIMEN / Unknown 08/17/2013 8:28 AM EDT 08/17/2013 8:29 AM EDT us Peewee Westfall DPM HEMATOLOGY ORDERABLES Final R esult [facility] [address] [place] [id number] [phone] [facility] documented in this encounter Visit Diagnoses Not on filedocumented in this encounter Care Teams Cuff Cutter Relationship Specialty Start Date End Date Diego Bartlett MD PCP - General 05/10/11 07/24/19 documented as of this encounter
--- OUTSIDE RECORDS SUMMARY | 2015-04-11 02:26 | XMS_ITS | Encounter Summary ---
Author Organization [facility] Address [address], [address] [place] [address] Care Team Providers Care Office Communication Professor Name Role Phone Diego Bartlett MD Primary Care Provider Encounter Details Date Type Department Care Team (Late st Contact Info) Description 04/11/2015 1:26 AM EST Hospital Encounter MTH PRE ADMIT [address] [phone] Tiburcio Brennan MD [address] [place] [address] Social History Tobacco Use Types [...] 1:00 PM EDT Appointment [facility] [address] [place], [place] [phone] phlebotomy documented as of this encounter Procedures [...] 12 lead (04/11/2015 9:32 AM EST) Pathologist [facility] Ventricular Rate 77 BPM [facility] Atrial Rate 77 BPM [facility] P-R Interval 174 ms [facility] QRS Duration 80 ms [facility] Q-T Interval 360 ms [facility] QTc Calculation (Bazett) 407 ms [facility] P [place] 51 degrees [facility] R [place] 17 degrees [facility] T [place] 51 degrees [facility] 04/11/2015 9:32 AM EST Narrative [facility] - 04/11/2015 3:49 PM EST Normal sinus rhythmPossible Inferior infarct , age undeterminedAbnormal ECGWhen compared with ECG of 24-OCT-2013 18:45,No significant change was found Procedure Note Result, Unknown Provider - 04/11/2015 Normal sinus rhythmPossible Inferior infarct , age undeterminedAbnormalECGWhen compared with ECG of 24-OCT-2013 18:45,No significant change wasfound us Tiburcio Brennan MD ECG ORDERABLES Final Result [facility] * XR Chest Standard TWO VW [...] Specimen Description .SUDHAKAR 04/11/2015 8:47 AM EST [facility] Special Requests NOT REPORTED 04/11/2015 8:47 AM EST [facility] Culture NEGATIVE FOR: METHICILLIN RESISTANT STAPHYLOCOCCUS AUREUS 04/14/2015 10:55 AM EST [facility] Culture Performed at [address] [place] [address] 04/14/2015 10:55 AM EST [facility] Culture 04/14/2015 10:55 AM EST [facility] Status FINAL 04/14/2015 04/14/20 15 10:55 AM EST [facility] ANTERIOR NARES SWAB / Unknown 04/11/2015 8:50 AM EST 04/11/2015 8:55 AM EST Tiburcio Brennan MD MICROBIOLOGY - GENERAL ORDERA BLES Final Result [facility] [address] [place] [address], [facility] [phone] [facility] * (ABNORMAL) Basic Metabolic Panel (04/11/2015 8:43 AM EST) Glucose 157(H) 70 - 99 mg/dL 04/11/2015 10:03 AM EST [facility] BUN 11 8 - 23 mg/dL 04/11/2015 10:03 AM EST [facility] Creatinine 0.74 0.70 - 1.20 mg/dL 04/11/2015 10:03 AM EST [facility] BUN/Creatinine Ratio 15 9 - 20 04/11/2015 10:03 AM EST [facility] Calcium 9.6 8.6 - 10.4 mg/dL 04/11/2015 10:03 AM EST [facility] Sodium 138 135 - 144 mmol/L 04/11/2015 10:03 AM EST [facility] Potassium 4.3 3.7 - 5.3 mmol/L 04/11/2015 10:03 AM EST [facility] Chloride 100 98 - 107 mmol/L 04/11/2015 10:03 AM EST [facility] CO2 25 20 - 31 mmol/L 04/11/2015 10:03 AM EST [facility] Anion Gap 13 9 - 17 mmol/L 04/11/2015 10:03 AM EST [facility] GFR Non- >60 >60 mL/min 04/11/2015 10:03 AM EST [facility] GFR >60 >60 mL/min 04/11/2015 10:03 AM EST [facility] GFR Comment 04/11/2015 10:03 AM EST [facility] Comment: Average GFR for [...] treatment by dialysis or transplant Performed at [address] [place] [address] [phone] BLOOD SPECIMEN / Unknown 04/11/2015 8:43 AM EST 04/11/2015 8:44 AM EST us Tiburcio Brennan MD CHEMISTRY ORDERABLES Final Re sult [address] [address] [phone] [facility] * (ABNORMAL) CBC auto differential [...] REPORTED 6.0 - 12.0 fL [facility] Differential Type NOT REPORTED [facility] Seg Neutrophils 74(H) 36 - 66 [...] AM EST PN LAB Comment: Performed at [address] [place] [address] ([phone] WBC Morphology NOT REPORTED [facility] RBC Morphology NOT REPORTED [facility] Platelet Estimate NOT REPORTED [facility] BLOOD SPECIMEN / Unknown 04/11/2015 8:43 AM EST 04/11/2015 8:44 AM EST us Tiburcio Brennan MD HEMATOLOGY ORDERABLES Final R esult [address] [address] [phone] [facility] documented in this encounter Visit Diagnoses Not on filedocumented in this encounter Care Teams Office Communication Professor Relationship Specialty Start Date End Date Diego Bartlett MD PCP - General 12/5/11 2/18/20 documented as of this encounter
--- OUTSIDE RECORDS SUMMARY | 2015-05-08 02:32 | XMS_ITS | Encounter Summary ---
Author Organization [facility] Address [address] [facility], [address] [place] [address] Care Team Providers Care Grocery Team Member Name Role Phone Diego Bartlett MD Primary Care Provider [phone] Encounter Details Date Type Department Care Team (Late st Contact Info) Description 05/08/2015 1:32 AM EST Hospital Encounter MTH PRE ADMIT [address] [place] [address] Tiburcio Brennan MD [address] [place] [address] Social History Tobacco Use Types [...] 1:00 PM EDT Appointment [facility] [address] [place] [address] phlebotomy documented as of this encounter Procedures Procedure Name Priority Date/Time Associated Diagnosis Comments TYPE AND SCREEN Routine 05/08/2015 12:42 PM EST documented in this encounter Results * Type and screen (05/08/2015 12:42 PM EST) Expiration Date 05/15/2015 5 4:00 PM EST [facility] Arm Band Number [id number] 5 4:00 PM EST [facility] ABO/Rh A POSITIVE 05/08/2015 4:00 PM EST [facility] Antibody Screen NEGATIVE 5 4:00 PM EST [facility] Comment: Performed at [address] [place] [address] ([phone] 05/08/2015 12:4 2 PM EST 05/08/2015 12:43 PM EST Tiburcio Brennan MD BLOOD BANK TEST ORDERABLES Fi nal Result [place] [id number] [phone] [facility] documented in this encounter Visit Diagnoses Not on filedocumented in this encounter Care Teams Grocery Team Member Relationship Specialty Start Date End Date Diego Bartlett MD PCP - General 05/10/11 07/24/19 documented as of this encounter
--- OUTSIDE RECORDS SUMMARY | 2015-09-17 13:44 | XMS_ITS | Encounter Summary ---
Author Organization [facility] Address [address], [address] [place] [address] Care Team Providers Care Clinical Pharmacologist Name Role Phone Diego Bartlett MD Primary Care Provider [phone] Encounter Details Date Type Department Care Team (Late Contact Info) Description 09/17/2015 1:44 PM EDT Hospital Encounter [facility] PFT [address] [place] [phone] Newton Stein MD [address] [place] [address] Social History Tobacco Use Types Packs/Day Years [...] 1:00 PM EDT Appointment [facility] [address] [place] [address] phlebotomy documented as of this encounter Procedures Procedure Name Priority Date/Time Associated Diagnosis Comments BLOOD GAS, ARTERIAL Sunquest Label Print 09/17/2015 3:10 PM EDT documented in this encounter Results * (ABNORMAL) Blood Gas, Arterial (09/17/2015 3:10 PM EDT) pH, Arterial 7.403 7.35 - 7.45 09/17/2015 3:36 PM EDT [facility] pCO2, Arterial 41.8 35 - 45 mmHg 09/17/2015 3:36 PM EDT [facility] pO2, Arterial 78.5(L) 80 - 100 mmHg 09/17/2015 3:36 PM EDT [facility] HCO3, Arterial 25.5 22 - 26 mmol/L 09/17/2015 3:36 PM EDT [facility] Positive Base Excess, Art 0.6 0.0 - 2.0 mmol/L 09/17/2015 3:36 PM EDT [facility] Negative Base Excess, Art NOT REPORTED 0.0 - 2.0 mmol/L [facility] O2 Sat, Arterial 96.1 95 - 98 % 09/17/2015 3:36 PM EDT [facility] Total Hb NOT REPORTED 12.0 - 16.0 g/dl [facility] Oxyhemoglobin NOT REPORTED 95.0 - 98.0 % [facility] Carboxyhemoglobin 0.3 0.0 - 5.0 % 09/17/2015 3:36 PM EDT [facility] Methemoglobin 0.6 0.0 - 1.9 % 09/17/2015 3:36 PM EDT [facility] Pt Temp 37 09/17/2015 3:36 PM EDT [facility] pH, Art, Temp Adj NOT REPORTED 7.350 - 7.450 [facility] pCO2, Art, Temp Adj NOT REPORTED [facility] pO2, Art, Temp Adj NOT REPORTED 80.0 - 100.0 mmHg [facility] O2 Device/Flow/% ROOM AIR 09/17/19 16 3:36 PM EDT [facility] Respiratory Rate NOT REPORTED [facility] Brennan Test PASS 09/17/2015 3:36 PM EDT [facility] Sample Site Left Radial Artery 09/17/2015 3:36 PM EDT [facility] Comment: Performed at [address] [place] [address] ([phone] Pt. Position NOT REPORTED [facility] Mode NOT REPORTED [facility] Set Rate NOT REPORTED [facility] Total Rate NOT REPORTED [facility] VT NOT REPORTED [facility] FIO2 NOT REPORTED [facility] Peep/Cpap NOT REPORTED [facility] PSV NOT REPORTED [facility] Text for Respiratory NOT REPORTED [facility] NOTIFICATION NOT REPORTED [facility] Notification Time NOT REPORTED [facility] Blood gases 09/17/2015 3:10 PM EDT 09/17/2015 3:18 PM EDT Newton Stein MD CHP ABG ORDER Final Resu lt Performing Organization Address City/State/[facility] Co de Phone Number [facility] [address] [place] [id number] [phone] [facility] documented in this encounter Visit Diagnoses Not on filedocumented in this encounter Care Teams Clinical Pharmacologist Relationship Specialty Start Date End Date Diego Bartlett MD PCP - General 05/10/11 07/24/19 documented as of this encounter
--- OUTSIDE RECORDS SUMMARY | 2025-01-14 07:20 | XMS_ITS | Encounter Summary ---
Author Organization [facility] Address [address] [place] [address] Care Team Providers Care Flap Lining Binder Name Role Phone Celi [place] MD Primary Care Provider [phone] Jr. Julio Henson DO Unavailable [phone] Alberto Ibrahim DPM Unavailable [phone] Celi Duncan MD Unavailable [phone] Julio Huddleston MD Unavailable [phone] Hudson Stevenson MD Unavailable [phone] Kitty Edmond OD Unavailable Encounter Details Date [...] PM EDT Narrative 01/01/2025 3:06 [place] [address] XRay Report Signed Patient: JUAN MIGUEL JENNINGS MR#: [id number] : 1950 Acct:[id number] Age/Sex: 74 / M ADM Date: 01/01/25 Loc: SURGOUT Attending Dr: Rolando Boss D.P.M. Ordering Physician: Rolando Boss D.P.M. Date of Service: 01/01/25 Procedure(s): XR foot RT min 3V Accession Number(s): [id number] cc: CELI DUCNAN ; Rolando Boss D.P.M. The [place] [address] Patient Name: JUAN MIGUEL JENNINGS MRN: [id number] date: 1950 Sex: M Assigned Patient Location: [facility] Current Patient Location: Accession/Order Number: [id number] Exam Date: 01/01/2025 15:03 Report Date: 01/01/2025 [...] Jr., D.O. 01/01/2025 3:04 PM Dictation Location: [place] [address] Electronically authenticated by: [id number] Y Date: 01/01/2025 15:04 Dictated By: John Pike M.D. Signed By: 01/01/25 1506 DD/ 1504 TD/TT: Risk Consulting Treasury Director: Procedure Note Radiology, Radiologist, MD - 01/01/2025 [place] [address] XRay Report Signed Patient: JUAN MIGUEL JENNINGS R#: [id number] : 1950cct:[id number] Age/Sex: 74 / MADM Date: 01/01/25 Loc: SURGOUT Attending Dr: Rolando Boss D.P.M. Ordering Physician: Rolando Boss D.P.M. Date of Service: 01/01/25 Procedure(s): XR foot RT min 3V Accession Number(s): [id number] cc: CELI [place] ; Rolando Boss D.P.M. The [place] [address] Patient Name: JUAN MIGUEL JENNINGS MRN: [id number] date: 1950 Sex: M Assigned Patient Location: [facility] Current Patient Location: Accession/Order Number: [id number] Exam Date: 01/01/2025 15:03 Report Date: 01/01/2025 [...] Jr., D.O. 01/01/2025 3:04 PM Dictation Location: [place] [address] Electronically authenticated by: [id number] Y Date: 5:04 Dictated By: John Pike M.D. Signed By:01/01/25 1506 DD/ 1504 TD/TT: Risk Consulting Treasury Director: us Generic External Data Provider [facility] Final Result documented in this encounter Visit Diagnoses Not on filedocumented in this encounter Additional Health Concerns Assessment Noted Time PHQ-9 Depression Total Score: 2 07/25/19 25 9:00 AM EST documented as of this encounter Care Teams Flap Lining Binder Relationship Specialty Start Date End Date Celi [place] MD 112 [facility] 100 [place] [address] PCP - General Family Medicine 10/25/22 Celi Duncan MD 112 [facility] [address] [place] [address] (Fax) PCP - ACO Reach 08/05/23 Jr. Julio Henson DO [address] 150 [place] [address] Referring Physician Orthopaedic Surgery 05/17/23 Alberto Ibrahim DPM 1900 [place] [address] Referring Physician Podiatry 05/17/23 Julio Huddleston MD 1355 [place] [address] Referring Physician Family Medicine 07/25/24 Hudson Stevenson MD 290 [place] [address] Referring Physician Urology 07/25/24 Kitty Edmond OD [address] [place] [address] Referring Physician Optometry 07/25/24 documented as of this encounter
--- OUTSIDE RECORDS SUMMARY | 2025-01-14 07:20 | XMS_ITS | Encounter Summary ---
Author Organization [facility] Address [address] [place] [address] Care Team Providers Care Tube Molder Fiberglass Name Role Phone Jordan Wong MD Primary Care Provider Mitch Mello MD Unavailable Jr. Julio Henson DO Unavailable Alberto Ibrahim DPM Unavailable [phone] Jordan Wong MD Unavailable Julio Huddleston MD Unavailable [phone] Hudson Stevenson MD Unavailable Kitty Edmond OD Unavailable Korin Kraft RN Unavailable Encounter Details Date Type Department Care Team (Late st Contact Info) Description 05/25/2023 Orders Only [facility] [place] 521 Family Medicine [address] [place] [address] Jordan Wong MD 112 [facility] [address] [place] [address] Social History Tobacco Use Types Packs/Day Years [...] documented as of this encounter Care Teams Tube Molder Fiberglass Relationship Specialty Start Date End Date Jordan Wong MD 112 [facility] 100 [place] [address] PCP - General Family Medicine 10/25/22 Jordan Wong MD [address] [address] PCP - ACO Reach 08/05/23 Mitch Mello MD [address] [place], [place] [address] Referring Physician Cardiology 05/17/23 07/24/24 Jr. Julio Henson DO [address] [address] Referring Physician Orthopaedic Surgery 05/17/23 Alberto Ibrahim DPM [address] [place], [place] [address] [place] [address] Referring Physician Podiatry 05/17/23 Julio Huddleston MD [address] [place] [address] Referring Physician Family Medicine 07/25/24 Hudson Stevenson MD [address] [place] [phone] Referring Physician Urology 07/25/24 Kitty Edmond OD 2331 [facility] [place] [address] Referring Physician Optometry 07/25/24 Korin Kraft, RN [address] [place] [address] Registered Nurse Family Medicine 12/24/24 12/31/24 documented as of this encounter
--- OUTSIDE RECORDS SUMMARY | 2025-01-14 07:20 | XMS_ITS | Encounter Summary ---
Author Organization [facility] Address [address] [place] [address] Care Team Providers Care Stove Mechanic Name Role Phone Jordan Wong MD Primary Care Provider Mitch Mello MD Unavailable Jr. Julio Henson DO Unavailable Alberto Ibrahim DPM Unavailable Jordan Wong MD Unavailable [phone] Julio Huddleston MD Unavailable Hudson Stevenson MD Unavailable [phone] Kitty Edmond OD Unavailable Korin Kraft RN Unavailable Encounter Details Date Type Department Care Team (Late st Contact Info) Description 01/19/2023 Abstract GIOVANNI Robbins Podiatry 1900 [place] [address] Alberto Ibrahim DPArin 1900 [place], [place] [phone] Social History Tobacco Use Types Packs/Day Years [...] on filedocumented in this encounter Care Teams Stove Mechanic Relationship Specialty Start Date End Date Jordan Wong MD 112 [facility] 100 [place] [address] PCP - General Family Medicine 10/25/22 Jordan Wong MD [address] [address] PCP - ACO Reach 08/05/23 Mitch Mello MD 1100 [place] [address] Referring Physician Cardiology 05/17/23 07/24/24 Jr. Julio Henson DO [address] [place] [address] 150 [place] [address] Referring Physician Orthopaedic Surgery 05/17/23 Alberto Ibrahim DPM [address] [place] [address] Referring Physician Podiatry 05/17/23 Julio Huddleston MD [address] [place] [phone] Referring Physician Family Medicine 07/25/24 Hudson Stevenson MD [address] [place] [id number] Referring Physician Urology 07/25/24 Kitty Edmond OD 2331 [place] [address] Referring Physician Optometry 07/25/24 Korin Kraft, ARUN [address] [facility] 230 [place] [address] Registered Nurse Family Medicine 12/24/24 12/31/24 documented as of this encounter
--- OUTSIDE RECORDS SUMMARY | 2025-01-14 07:20 | XMS_ITS | Encounter Summary ---
Author Organization [facility] Address [address] [place] [address] Care Team Providers Care Network Firewall Engineer Name Role Phone Jordan Wong MD Primary Care Provider Mitch Mello MD Unavailable [phone] Jr. Julio Henson DO Unavailable Alberto Ibrahim DPM Unavailable Jordan Wong MD Unavailable Julio Huddleston MD Unavailable Hudson Stevenson MD Unavailable Kitty Edmond OD Unavailable Korin Kraft RN Unavailable [phone] Encounter Details Date Type Department Care Team (Late st Contact Info) Description 05/03/2023 Orders Only [facility] [place] 521 Family Medicine [address] [place] [address] Newton Stevenson MD [address] [place] [address] Social History Tobacco Use Types Packs/Day Years [...] Blood Venous blood specimen / Unknown Newton Stevenosn MD LAB BLOOD ORDERABLES Leonora l Result * CBC and differential (04/26/2023 9:58 AM EST) Blood Venous blood specimen / Unknown Newton Stevenson MD LAB BLOOD ORDERABLES Leonora l Result documented in this encounter Visit Diagnoses Not on filedocumented in this encounter Care Teams Network Firewall Engineer Relationship Specialty Start Date End Date Jordan Wong MD [address] [address] (Fax) PCP - General Family Medicine 10/25/22 Jordan Wong MD [address] [address] PCP - ACO Reach 08/05/23 Mitch Mello MD 1100 [place], [place] [phone] Referring Physician Cardiology 05/17/23 07/24/24 Jr. Julio Henson DO 112 [facility] 150 [place] [address] Referring Physician Orthopaedic Surgery 05/17/23 Alberto Ibrahim DPM 1900 [place], [place] [phone] Referring Physician Podiatry 05/17/23 Julio Huddleston MD 1355 [place] [address] Referring Physician Family Medicine 07/25/24 Hudson Stevenson MD [address] [place] [phone] Referring Physician Urology 07/25/24 Kitty Edmond OD 2331 [facility] [address] Referring Physician Optometry 07/25/24 Korin Kraft, ARUN [address] [place] [address] Registered Nurse Family Medicine 12/24/24 12/31/24 documented as of this encounter
--- OUTSIDE RECORDS SUMMARY | 2025-01-14 07:20 | XMS_ITS | Encounter Summary ---
Author Organization [facility] Address [address] [place] [address] Care Team Providers Care Story Editor Name Role Phone Jordan Wong MD Primary Care Provider Mitch Mello MD Unavailable Jr. Julio Henson DO Unavailable Alberto Ibrahim DPM Unavailable Jordan Wong MD Unavailable [phone] Julio Huddleston MD Unavailable [phone] Hudson Stevenson MD Unavailable [phone] Kitty Edmond OD Unavailable Korin Kraft RN Unavailable Encounter Details Date Type Department Care Team (Late st Contact Info) Description 04/14/2023 Orders Only [facility] [place] [facility] [address] [place] [address] Julio Huddleston MD [address] [place] [address] Social History Tobacco Use Types Packs/Day Years [...] on filedocumented in this encounter Care Teams Story Editor Relationship Specialty Start Date End Date Jordan Wong MD [address] [address] PCP - General Family Medicine 10/25/22 Jordan Wong MD [address] [address] PCP - ACO Reach 08/05/23 Mitch Mello MD [address] [place] [phone] Referring Physician Cardiology 05/17/23 07/24/24 Jr. Julio Henson DO [address] [address] Referring Physician Orthopaedic Surgery 05/17/23 Alberto Ibrahim DPM [address] [place] [address] Referring Physician Podiatry 05/17/23 Julio Huddleston MD [address] [place] [address] Referring Physician Family Medicine 07/25/24 Hudson Stevenson MD [address] [place] [phone] Referring Physician Urology 07/25/24 Kitty Edmond OD [address] [place] [address] Referring Physician Optometry 07/25/24 Korin Kraft, ARUN [address] [place] [address] Registered Nurse Family Medicine 12/24/24 12/31/24 documented as of this encounter
--- OUTSIDE RECORDS SUMMARY | 2025-01-14 07:20 | XMS_ITS | Encounter Summary ---
Author Organization [facility] Address [address] [place] [address] Care Team Providers Care Knuckler Name Role Phone Jordan Wong MD Primary Care Provider Mitch Mello MD Unavailable Jr. Julio Henson DO Unavailable Alberto Ibrahim DPM Unavailable Jordan Wong MD Unavailable [phone] Julio Huddleston MD Unavailable Hudson Stevenson MD Unavailable Kitty Edmond OD Unavailable Korin Kraft RN Unavailable [phone] Encounter Details Date Type Department Care Team (Late st Contact Info) Description 04/20/2023 Orders Only [facility] [place] 521 Family Medicine [address] [place] [address] Jordan Wong MD 112 [facility] [address] [place] [address] Social History Tobacco Use Types Packs/Day Years [...] on filedocumented in this encounter Care Teams Knuckler Relationship Specialty Start Date End Date Jordan Wong MD 112 [facility] 100 [place] [address] PCP - General Family Medicine 10/25/22 Jordan Wong MD 112 [facility] 100 [place] [address] PCP - ACO Reach 08/05/23 Mitch Mello MD [address] [place] [address] [phone] Referring Physician Cardiology 05/17/23 07/24/24 Jr. Julio Henson DO 112 [facility] [address] [place] [address] Referring Physician Orthopaedic Surgery 05/17/23 Alberto Ibrahim DPM [address] [place] [address] Referring Physician Podiatry 05/17/23 Julio Huddleston MD [address] [place] [address] Referring Physician Family Medicine 07/25/24 Hudson Stevenson MD [address] [place] [address] Referring Physician Urology 07/25/24 [place] [address] [place] [address] Referring Physician Optometry 07/25/24 Korin Kraft, ARUN [address] [address] Registered Nurse Family Medicine 12/24/24 12/31/24 documented as of this encounter
--- OUTSIDE RECORDS SUMMARY | 2025-01-14 07:21 | XMS_ITS | Encounter Summary ---
Author Organization [facility] Address [address] [place] [address] Care Team Providers Care Video Tape Editor Name Role Phone Jordan Wong MD Primary Care Provider [phone] Jr. Julio Henson DO Unavailable [phone] Alberto Ibrahim DPM Unavailable Jordan Wong MD Unavailable [phone] Julio Huddleston MD Unavailable Hudson Stevenson MD Unavailable Kitty Edmond OD Unavailable Korin Kraft RN Unavailable Encounter Details Date Type Department Care Team (Late st Contact Info) Description 12/31/2024 Patient Outreach [facility] [address] [place] [phone] Korin Kraft, RN [address] [place] [address] Social History Tobacco Use Types [...] Essential hypertension Unspecified essential hypertension Hx of director long term care use of blood thinners Encounter for long-term (current) use of anticoagulants documented in this encounter Additional Health Concerns Assessment Noted Time PHQ-9 Depression Total Score: 2 07/25/19 25 9:00 AM EST documented as of this encounter Care Teams Video Tape Editor Relationship Specialty Start Date End Date Jordan Wong MD [address] [address] (Fax) PCP - General Family Medicine 10/25/22 Jordan Wong MD [address] [address] PCP - ACO Reach 08/05/23 Jr. Julio Henson DO [address] [facility] 150 [place] [address] Referring Physician Orthopaedic Surgery 05/17/23 Alberto Ibrahim DPM [address] [place] [address] Referring Physician Podiatry 05/17/23 Julio Huddleston MD [address] [place] [address] Referring Physician Family Medicine 07/25/24 Hudson Stevenson MD 290 [place], [place] [phone] Referring Physician Urology 07/25/24 Kitty Edmond OD [address] [address] Referring Physician Optometry 07/25/24 Korin Kraft, ARUN [address] [place] [address] Registered Nurse Family Medicine 12/24/24 12/31/24 documented as of this encounter
--- OUTSIDE RECORDS SUMMARY | 2025-01-14 07:21 | XMS_ITS | Clinical Summary ---
Author Organization [facility] Address [address] [place] [address] Care Team Providers Care Conduit Installer Name Role Phone Jordan Wong MD Primary Care Provider [phone] Allergies Active Allergy Reactions Criticality Noted Date [...] colon cancer 01/11/2023 04/08/20 23 Hx of senior living use of blood thinners 01/11/2023 04/08/2023 Non-pressure [...] Encounters Date Type Department Care Team Description 01/08/2025 Telephone [place] [address] [place] [address] Maria G Marlow MA 12/21/2024 11:20 AM EDT Office Visit [facility] [address] [place] [address] Surya Gleason, MARY Pre-op evaluation (Primary Dx); 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; History of myocardial infarction; Primary hypertension; Mixed hyperlipidemia; Statin intolerance from Last 3 Months Immunizations Immunization Administration Dates Next Due Influenza, High Dose Seasona l, Preservative Free 03/05/2019,03/03/2018 Influenza, Seasonal, Quadriv alent, Adjuvanted 05/06/2021,03/22/2020 Influenza, Unspecified 03/06/2016 Influenza, injectable, quadr ivalent, preservative free 04/06/2017,01/23/2016 Influenza, seasonal, injectable 03/23/2014,04/06 Novel [id number], preservative-free 04/21 Pneumococcal Conjugate PCV 13 03/03/2018 [...] 025, 03/21/2024, 04/13/2023 Influenza Vaccine (#1) 2025 , 02/28/2023, 04/16/2022, Additional history exists Colonoscopy 12/17/2030 [...] performed (12/21/2024 10:36 AM EDT) 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
--- OUTSIDE RECORDS SUMMARY | 2025-01-14 07:21 | XMS_ITS | Clinical Summary ---
Author Organization [facility] Address [address] [place] [address] Care Team Providers Care C Programmer Name Role Phone Jordan Duncan MD Primary Care Provider Jr. Julio Henson DO Unavailable Alberto Ibrahim DPM Unavailable Jordan Duncan MD Unavailable [phone] Julio Huddleston MD Unavailable Hudson Stevenson MD Unavailable [phone] Kitty Edmond OD Unavailable Allergies Active Allergy [...] polyneuropathy, without long-term current use of insulin ([facility]) Take 1 tablet (30 mg) by [...] History of colon cancer 01/11/2023 Hx of long term care pharmacist use of blood thinners 01/11/2023 Hypogonadism male [...] Generic External Data 12/31/2024 Patient Outreach [facility] [place] [address] Korin Kraft RN 12/28/2024 Clinisync Result Encounter [facility] External Department Unsolicited Provider, Generic External Data 12/28/2024 Clinisync Result Encounter [facility] External Department Unsolicited Provider, Generic External Data 12/26/2024 Clinisync Result Encounter [facility] External Department Unsolicited Provider, Generic External Data 12/24/2024 Telephone [facility] [address] [address] Jordan Duncan MD Care Coordination 12/03/2024 Telephone [facility] [address] [address] Jordan Duncan MD 10/18/2024 Telephone [facility] [address] [address] Jordan Duncan MD from Last 3 Months Immunizations Immunization Administration Dates Next Due Influenza, [id number] 03/06/2016 Influenza, High Dose Seasona l, Preservative Free 03/05/2019,03/03/2018 Influenza, High-dose Seasona l, Quadrivalent, Preservative Free 03/04/2019,03/06/2016 Influenza, Seasonal, Quadriv alent, Adjuvanted 02/28/2023,04/16/2022,05/06/2021,03/22 Influenza, Unspecified 02/28/2023,2021,05/06/2021,03/22,03/05/2019,03/03/2018,04/06/2017 ,03/06/2016,03/06/2016,01/23/2016,03/06,04/06/2013 Influenza, injectable, quadr ivalent, preservative free 04/06/2017,01/23/2016 Influenza, seasonal, injectable 03/28/2024,03/23,04/06/2013 Influenza, trivalent, adjuvanted 03/28/2024 Moderna Bivalent Booster Vaccination 03/23/2022 Moderna SARS-CoV-2 50mcg/0.5mL Booster Novel [id number], preservative-free 04/21/2009 Pfizer Bivalent Booster 12 Y [...] EDT Narrative 01/01/2025 3:06 PM EDT The [address] [address] XRay Report Signed Patient: JUAN MIGUEL JENNINGS MR#: [id number] : 1950 Acct:[id number] Age/Sex: 74 / M ADM Date: 01/01/25 Loc: SURGOUT Attending Dr: Enedina Boss D.P.M. Ordering Physician: Enedina Boss D.P.M. Date of Service: 01/01/25 Procedure(s): XR foot RT min 3V Accession Number(s): [id number] cc: JORDAN DUNCAN ; Enedina Boss D.P.M. The [address] [address] Patient Name: JUAN MIGUEL JENNINGS MRN: [id number] date: 1950 Sex: M Assigned Patient Location: [facility] Current Patient Location: Accession/Order Number: [id number] Exam Date: 01/01/2025 15:03 Report Date: 01/01/2025 [...] Jr., D.O. 01/01/2025 3:04 PM Dictation Location: [place] [address] Electronically authenticated by: [id number] Y Date: 01/01/2025 15:04 Dictated By: John Pike M.D. Signed By: 01/01/25 1506 DD/ 1504 TD/TT: Mannequin Mold Maker: Procedure Note Radiology, Radiologist, MD - 01/01/[address] [address] XRay Report Signed Patient: JUAN MIGUEL JENNINGS JMR#: [id number] : 1950cct:[id number] Age/Sex: 74 / MADM Date: 01/01/25 Loc: SURGOUT Attending Dr: Enedina Boss D.P.M. Ordering Physician: Enedina Boss D.P.M. Date of Service: 01/01/25 Procedure(s): XR foot RT min 3V Accession Number(s): [id number] cc: JORDAN DUNCAN ; Enedina Boss D.P.M. The [place] [id number] Patient Name: JUAN MIGUEL JENNINGS MRN: [id number] date: 1950 Sex: M Assigned Patient Location: [facility] Current Patient Location: Accession/Order Number: [id number] Exam Date: 01/01/2025 15:03 Report Date: 01/01/2025 [...] Jr., D.O. 01/01/2025 3:04 PM Dictation Location: [place] [address] Electronically authenticated by: [id number] Y Date: 5:04 Dictated By: John Pike M.D. Signed By:01/01/25 1506 DD/ 1504 TD/TT: Mannequin Mold Maker: us Generic External Data Provider [facility] Final Result * XR CHEST 2V (12/28/2024 3:03 PM EDT) Anatomical Region Laterality Modality Other 12/28/2024 3:03 PM EDT Narrative 12/28/2024 3:06 PM EDT [address] [address] XRay Report Signed Patient: JUAN MIGUEL JENNINGS MR#: [id number] : 1950 Acct:[id number] Age/Sex: 74 / M ADM Date: 12/28/24 Loc: PST Attending Dr: Enedina Boss D.P.M. Ordering Physician: Enedina Boss D.P.M. Date of Service: 12/28/24 Procedure(s): XR chest 2V Accession Number(s): [id number] cc: JORDAN DUNCAN ; Enedina Boss D.P.M. The [place] [id number] Patient Name: JUAN MIGUEL JENNINGS MRN: [facility]:[id number] date: 1950 Sex: M Assigned Patient Location: [facility] Current Patient Location: [facility] Accession/Order Number: [id number] Exam Date: 12/28/2024 15:02 Report Date: 12/28/2024 [...] Palacios M.D. 12/28/2024 3:03 PM Dictation Location: [place] [address] Electronically authenticated by: [id number] Y Date: 12/28/2024 15:03 Dictated By: Tomer Palacios D.O. Signed By: 12/28/24 1506 DD/ 150 TD/TT: Mannequin Mold Maker: Procedure Note Radiology, Radiologist, - 12/28/2024 The [place] [id number] XRay Report Signed Patient: JUAN MIGUEL JENNINGS JMR#: [id number] : 1950cct:[id number] Age/Sex: 74 / MADM Date: 12/28/24 Loc: PST Attending Dr: Enedina Boss D.P.M. Ordering Physician: Enedina Boss D.P.M. Date of Service: 12/28/24 Procedure(s): XR chest 2V Accession Number(s): [id number] cc: JORDAN DUNCAN ; Enedina Boss D.P.M. The [place] [id number] Patient Name: JUAN MIGUEL JENNINGS MRN: [id number] date: 1950 Sex: M Assigned Patient Location: [facility] Current Patient Location: [facility] Accession/Order Number: [id number] Exam Date: 12/28/2024 15:02 Report Date: 12/28/2024 [...] Palacios M.D. 12/28/2024 3:03 PM Dictation Location: [place] [address] Electronically authenticated by: [id number] Y Date: 5:03 Dictated By: Tomer Palacios D.O. Signed By:12/28/24 1506 DD/ 02 TD/TT: Mannequin Mold Maker: Generic External Data Provider [facility] Final Result * [facility] PROTHROMBIN TIME INR W/O COUM (12/28/2024 1:09 PM EDT) [facility] PROTHROMBIN TIME 10.7 9.0 - 11.6 sec [facility] TB INR 1.01 TB Comment: DESIRED INR: 2.0-3.0 CONDITIONS NOT LISTED BELOW 2.5-3.5 FOR PROSTHETIC HEART VALVE REPLACEMENT 2.5-3.5 RECURRENT THROMBOSIS 12/28/2024 1:09 PM EDT 12/28/2024 1:11 PM EDT Narrative [facility] - 12/28/2024 2:11 PM EDT Generic External Data Provider [facility] F inal Result [facility] * [facility] APTT (12/28/2024 1:09 PM EDT) [facility] PARTIAL THROMBOPLASTIN TIME 30.4 22.3 - 36.2 sec [facility] 12/28/2024 1:09 PM EDT 12/28/2024 1:11 PM EDT Narrative [facility] - 12/28/2024 2:11 PM EDT Generic External Data Provider [facility] F inal Result Performing Organization Address City/[facility]/ZIP Co de Phone Number [facility] * (ABNORMAL) ALL CBC WITH AUTO DIFF (12/28/2024 1:09 PM EDT) [facility] TB WBC 7.1 4.0 - 11.0 10 [...] External Data Provider [facility] F inal Result [facility] * (ABNORMAL) ALL BASIC METABOLIC PANEL (12/28/2024 [...] 0.70 - 1.30 mg/dL [facility] TBH EGFR-AF MEXICAN >60 >=60 mL/min/1.7 3m 2 TBH TBH EGFR-NON AF MEXICAN >60 >=60 mL/min/1.7 3m 2 [facility] BUN CREATININE RATIO 24.7 [facility] CALCIUM 9.5 8.5 - 10.1 mg/dL [facility] 12/28/2024 1:09 PM EDT 12/28/2024 1:11 PM EDT Narrative [facility] - 12/28/2024 1:46 PM EDT Generic External Data Provider [facility] F inal Result Performing Organization Address City/[facility] Co de Phone Number JONN [facility] * HMHP LIVER PANEL (12/26/2024 8:13 [...] External Data Provider [facility] F inal Result [facility] * (ABNORMAL) ALL LIPID PROFILE (FASTING) (12/26/2024 8:13 AM EDT) TRIGLYCERIDES 279(H) <=150 mg/dL [facility] CHOLESTEROL 172 <=200 mg/dL [facility] HDL CHOLESTEROL 40 40 - 60 mg/dL [facility] Comment: > or =60 mg/dl - LOW CARDIOVASCULAR RISK <40 mg/dl - HIGH CARDIOVASCULAR RISK LDL CHOLESTEROL CALCULATED 77.0 mg/dL [facility] Comment: <100 mg/dl OPTIMAL 100-129 mg/dl NEAR OR ABOVE OPTIMAL 130-159 mg/dl BORDERLINE HIGH 160-189 mg/dl HIGH >190 mg/dl VERY HIGH VLDL CHOLESTEROL 55.8 mg/dL [facility] CHOL HDL RATIO 4.3 [facility] Comment: 3.3 - 4.4 LOW RISK 4.4 - 7.1 AVERAGE RISK 7.1 - 11.0 MODERATE RISK >11.0 HIGH RISK 12/26/2024 8:13 AM EDT 12/26/2024 8:14 AM EDT Narrative [facility] - 12/26/2024 9:54 AM EDT Generic External Data Provider [facility] F inal Result [facility] * (ABNORMAL) POCT microalbumin manually resulted [...] Information Site ID: [id number] Name: [facility] Address: [address] [place] [address] Director: Toan Lara MD Jordan Duncan MD LAB BLOOD ORDERABLES Final R esult [facility] * Diabetic Retinopathy Screening - OU - Both Eyes (09/30/2023 9:57 AM EDT) Anatomical Region Laterality Modality Head Other Kitty Edmond OD OPHTH PHOTOGRAPHY Final Result * Colonoscopy (12/17/2020 12:00 PM EDT) Anatomical Region Laterality Modality Endoscopy 12/17/2020 12:0 0 PM EDT Narrative 12/17/2020 12:00 PM EDT PERFORMED AT [facility] LOCATION:[id number] Procedure Note CONVERSION, GENERIC - 10/20/2022 PERFORMED AT [facility] LOCATION:[id number] Jordan Duncan MD ENDOSCOPY PROCEDURE ORDERABL ES Final Result from Last 3 Months or Most Recently Relevant to Health Maintenance Insurance MEDICARE [facility] Advance Directives Documents on File Type Date Recorded Patient Pharmacist Manager Expl anation Advance Directives and Living Will 11/20/2019 2018-05-09 Living Wi ll Advance Directives and Living Will 11/20/2019 2018-05-09 Power Of Instrument Setter Care Teams C Programmer Relationship Specialty Start Date End Date Jordan Duncan MD [address] [place] [address] PCP - General Family Medicine 10/25/22 Jordan Duncan MD [address] [place] [address] PCP - ACO Reach 08/05/23 Jr. Julio Henson DO [address] [place] [address] Referring Physician Orthopaedic Surgery 05/17/23 Alberto Ibrahim DPM [address] [facility] [place] [address] Referring Physician Podiatry 05/17/23 Julio Huddleston MD [address] [place] [address] Referring Physician Family Medicine 07/25/24 Hudson Stevenson MD [address] [place] [address] Referring Physician Urology 07/25/24 Kitty Edmond OD [address] [facility] [place] [address] Referring Physician Optometry 07/25/24
--- OUTSIDE RECORDS SUMMARY | 2025-01-14 07:21 | XMS_ITS ---
Author Organization [facility] Address [address] [facility], [address] [place] [address] Care Team Providers Care Gear Nicker Name Role Phone Jordan Wong MD Primary [...] 10/01/2015 S/P JORY - LCX & RCA ([id number]-Fj. kabour) 05/13 S/P cardiac cath-05/13/14-Dr. landrum 05/13/2014 [...]
--- OUTSIDE RECORDS SUMMARY | 2025-01-14 07:21 | XMS_ITS | Encounter Summary ---
Author Organization [facility] Address [address] [place] [address] Care Team Providers Care District Sales Leader Name Role Phone Jordan Wong MD Primary Care Provider [phone] Mitch Mello MD Unavailable Jr. Julio Henson DO Unavailable Alberto Ibrahim DPM Unavailable [phone] Jordan Wong MD Unavailable [phone] Julio Huddleston MD Unavailable [phone] Hudson Stevenson MD Unavailable Kitty Edmond OD Unavailable Korin Kraft RN Unavailable [phone] Encounter Details Date Type Department Care Team (Late st Contact Info) Description 10/25/2023 Orders Only [facility] Family Medicine [address] [place] [address] Newton Stevenson MD [address] [place] [address] Social History Tobacco Use Types Packs/Day Years [...] documented as of this encounter Care Teams District Sales Leader Relationship Specialty Start Date End Date Jordan Wong MD [address] [place] [address] PCP - General Family Medicine 10/25/22 Jordan Wong MD [address] [place] [address] PCP - ACO Reach 08/05/23 Mitch Mello MD [address] [place] [address] Referring Physician Cardiology 05/17/23 07/24/24 Jr. Julio Henson DO [address] [place] [address] Referring Physician Orthopaedic Surgery 05/17/23 Alberto Ibrahim DPM [address] [facility] [place] [address] Referring Physician Podiatry 05/17/23 Julio Huddleston MD [address] [place] [address] Referring Physician Family Medicine 07/25/24 Hudson Stevenson MD [address] [place], [place] [address] Referring Physician Urology 07/25/24 Kitty Edmond OD [address] [facility] [place] [address] Referring Physician Optometry 07/25/24 Korin Kraft, ARUN [address] [facility] [address] [place] [address] Registered Nurse Family Medicine 12/24/24 12/31/24 documented as of this encounter
--- OUTSIDE RECORDS SUMMARY | 2025-01-14 07:21 | XMS_ITS | Clinical Summary ---
Author Organization [facility] Address [address], [address] [place] [address] Care Team Providers Care Key Holder Name Role Phone Jordan Wong MD Primary Care Provider [phone] Allergies Active Allergy Reactions Criticality Noted Date [...] 10/01/2015 S/P JORY - LCX & RCA ([id number]-Uo. kabour) 05/13 S/P cardiac cath-05/13/14-Dr. 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 Resolved Problems Problem Noted Date Diagnosed Date Resolved Date Screening for colorectal cancer 02/12/2014 04/03/2018 Encounters Date Type Department Care Team Description 10/17/2024 1:00 PM EDT Office Visit [facility] Part of [address] [address] Newton Stein MD Anal cancer [...] Info) Description 02/22/2025 1:00 PM EDT Appointment [facility] [address] [place] [phone] phlebotomy Health Maintenance Due Date Last [...] 4.00 ng/mL [facility] Comment: Performed at [facility] [address] [place] [address] [facility] [address] [place] [address] CLIA No. [id number] CAP Accreditation No. [id number] Scalehouse Attendant: Clint Tamez M.D. 10/13/2018 9:50 AM EDT [...] understanding of their HBA1c result. Performed at [address] [place] [address] ([phone] BLOOD SPECIMEN / Unknown 08/04/2016 7:05 PM EST 08/04/2016 10:33 PM EST us Elton Dawson MD CHEMISTRY ORDERABLES Final Resu lt [facility] [address] [phone] [facility] * US ABDOMINAL LIMITED (04/15/2014 8:53 AM EST) Anatomical Region Laterality Modality Abdomen Other 04/15/2014 8:53 AM EST Narrative 04/15/2014 9:13 AM EST FINAL Procedure: [facility] Apr 15 2014 8:53AM [id number] US ABD LIMITED Reason for Exam: ^polycythemia, [...] kidneys reveals no hydronephrosis Report Transcribed by: [facility] on Apr 15 2014 9:13A Read by: CHAPIN BAUTISTA M.D. [id number] on Apr 15 2014 9:13A Electronically Signed by: DR. CHAPIN BAUTISTA M.D. on: Apr 15 2014 9:13A Procedure Note Chapin Bautista MD - 04/15/2014 FINAL Procedure: [facility] Apr 15 2014 8:53AM [id number] US ABD LIMITED Reason for Exam: ^polycythemia, [...] kidneys reveals no hydronephrosis Report Transcribed by: [facility] on Apr 15 2014 9:13A Read by: CHAPIN BAUTISTA M.D. [id number] on Apr 15 2014 9:13A Electronically Signed by: DR. CHAPIN BAUTISTA M.D. on: Apr 15 2014 9:13A Gilda Conner MD [facility] ORDERABLES Final Res ult from Last 3 Months or Most Recently Relevant to Health Maintenance Insurance [employer] MEDICARE SUPP Advance Directives Documents on File Type Date Recorded Patient Automobile Designer Expl anation [employer] Applications Teacher 08/31/2013 9:46 AM ACP-Advance Directive 08/31/2013 [...] 2:36 PM 05/13/2014 9:20 PM Care Teams Key Holder Relationship Specialty Start Date End Date Jordan Wong MD PCP - General 07/25/19
--- OUTSIDE RECORDS SUMMARY | 2025-01-14 07:21 | XMS_ITS | Encounter Summary ---
Author Organization [facility] Address [address] [place] [address] Care Team Providers Care Gas Engine Mechanic Name Role Phone Jordan Wong MD Primary Care Provider [phone] Mitch Mello MD Unavailable [phone] Jr. Julio Henson DO Unavailable [phone] Alberto Ibrahim DPM Unavailable Jordan Wong MD Unavailable [phone] Julio Huddleston MD Unavailable [phone] Hudson Stevenson MD Unavailable [phone] Kitty Edmond OD Unavailable Korin Kraft RN Unavailable Encounter Details Date Type Department Care Team (Late st Contact Info) Description 09/30/2023 Orders Only [facility] Family Medicine [address] [facility] [place] [address] Kitty Edmond, OD [address] [place] [address] Social History Tobacco Use Types Packs/Day Years [...] documented as of this encounter Care Teams Gas Engine Mechanic Relationship Specialty Start Date End Date Jordan Wong MD [address] [address] PCP - General Family Medicine 10/25/22 Jordan Wong MD [address] [address] PCP - ACO Reach 08/05/23 Mitch Mello MD [address] [place] [address] Referring Physician Cardiology 05/17/23 07/24/24 Jr. Julio Henson DO [address] [facility] 150 [place] [address] Referring Physician Orthopaedic Surgery 05/17/23 Alberto Ibrahim DPM [address] [place] [address] Referring Physician Podiatry 05/17/23 Julio Huddleston MD [address] [place] [address] Referring Physician Family Medicine 07/25/24 Hudson Stevenson MD 290 [place] [address] Referring Physician Urology 07/25/24 Kitty Edmond OD [address] [place] [address] Referring Physician Optometry 07/25/24 Korin Kraft, RN [address] [facility] 230 [place] [address] Registered Nurse Family Medicine 12/24/24 12/31/24 documented as of this encounter
--- OUTSIDE RECORDS SUMMARY | 2025-01-14 07:21 | XMS_ITS | Encounter Summary ---
Author Organization [facility] Address [address] [place] [address] Care Team Providers Care Janitor Helper Name Role Phone Jordan Wong MD Primary Care Provider Mitch Mello MD Unavailable Jr. Julio Henson DO Unavailable [phone] Alberto Ibrahim DPM Unavailable Jordan Wong MD Unavailable [phone] Julio Huddleston MD Unavailable Hudson Stevenson MD Unavailable [phone] Kitty Edmond OD Unavailable Korin Kraft RN Unavailable [phone] Encounter Details Date Type Department Care Team (Late st Contact Info) Description 03/07/2023 Abstract [facility] Pod[facility] [address] [place] [address] Alberto Ibrahim DPArin [address] [place], [place] [id number] Social History Tobacco Use Types Packs/Day Years [...] on filedocumented in this encounter Care Teams Janitor Helper Relationship Specialty Start Date End Date Jordan Wong MD 112 [facility] 100 [place] [address] PCP - General Family Medicine 10/25/22 Jordan Wong MD [address] [address] PCP - ACO Reach 08/05/23 Mitch Mello MD [address] [place] [address] Referring Physician Cardiology 05/17/23 07/24/24 Jr. Julio Henson DO [address] [address] Referring Physician Orthopaedic Surgery 05/17/23 Alberto Ibrahim DPM [facility][note 3] [place] [address] Referring Physician Podiatry 05/17/23 Julio Huddleston MD [address] [place] [address] Referring Physician Family Medicine 07/25/24 Hudson Stevenson MD [address] [place] [phone] Referring Physician Urology 07/25/24 Kitty Edmond OD [address] [place] [address] Referring Physician Optometry 07/25/24 Korin Kraft, RN [address] [place] [address] Registered Nurse Family Medicine 12/24/24 12/31/24 documented as of this encounter
--- OUTSIDE RECORDS SUMMARY | 2025-01-14 07:21 | XMS_ITS ---
Author Organization [facility] Address [address] [facility] [place] [address] Care Team Providers Care Spiral Weaver Name Role Phone Jordan Wong MD Primary Care Provider [phone] Jr. Julio Henson DO Unavailable [phone] Alberto Ibrahim DPM Unavailable [phone] Jordan Wong MD Unavailable [phone] Julio Huddleston MD Unavailable [phone] Hudson Stevenson MD Unavailable [phone] Kitty Edmond OD Unavailable Chronic Care Management (CCM) Status:Declined [...]
--- OUTSIDE RECORDS SUMMARY | 2025-01-14 07:21 | XMS_ITS | Encounter Summary ---
Author Organization [facility] Address [address] [place] [address] Care Team Providers Care Geriatric Physician Name Role Phone Jordan Wong MD Primary Care Provider Mitch Mello MD Unavailable Jr. Julio Henson DO Unavailable Alberto Ibrahim DPM Unavailable Jordan Wong MD Unavailable [phone] Julio Huddleston MD Unavailable [phone] Hudson Stevenson MD Unavailable Kitty Edmond OD Unavailable Korin Kraft RN Unavailable [phone] Encounter Details Date Type Department Care Team (Late st Contact Info) Description 10/28/2023 Abstract [facility] 521 Family Medicine [address] [facility] [place] [address] Jordan Wong MD 112 [facility] 100 [place] [address] Social History Tobacco Use Types Packs/Day Years [...] documented as of this encounter Care Teams Geriatric Physician Relationship Specialty Start Date End Date Jordan Wong MD 112 [facility] 100 [place] [address] PCP - General Family Medicine 10/25/22 Jordan Wong MD [address] [address] PCP - ACO Reach 08/05/23 Mitch Mello MD [address] [place] [address] Referring Physician Cardiology 05/17/23 07/24/24 Jr. Julio Henson DO [address] [address] Referring Physician Orthopaedic Surgery 05/17/23 Alberto Ibrahim DPM [facility]0 [place] [address] Referring Physician Podiatry 05/17/23 Julio Huddleston MD [address] [place] [address] Referring Physician Family Medicine 07/25/24 Hudson Stevenson MD [address] [place] [phone] Referring Physician Urology 07/25/24 Kitty Edmond OD [address] [facility] [place] [address] Referring Physician Optometry 07/25/24 Korin Kraft, RN [address] [facility] 230 [place] [address] Registered Nurse Family Medicine 12/24/24 12/31/24 documented as of this encounter
--- OUTSIDE RECORDS SUMMARY | 2025-01-14 07:21 | XMS_ITS | Encounter Summary ---
Author Organization [facility] Address [address] [place] [address] Care Team Providers Care Alcohol Rubber Name Role Phone Jordan Wong MD Primary Care Provider [phone] Encounter Details Date Type Department Care Team (Late st Contact Info) Description 01/08/2025 Telephone [facility] [address] [place] [phone] Mari aG Marlow MA Social History Tobacco Use Types Packs/Day Years Used Date Smoking Tobacco: Former Cigarettes Smokeless Tobacco: Never Alcohol Use Standard Drinks/Week Comments Yes 0 [...] PM EDT documented as of this encounter Miscellaneous Notes * Telephone Encounter - Maria G Marlow MA - 01/08/2025 10:26 AM EDT Images from the original note were not included. MD Maria G Peralta MA Blood testing ok, continue leqvio. Advised patient of Dr. Huddleston's findings. Patient verbalized understanding and agreed with plan of care. documented in this encounter Plan of Treatment Not on file documented as of this encounter Visit Diagnoses Not on filedocumented in this encounter Care Teams Alcohol Rubber Relationship Specialty Start Date End Date Jordan Wong MD [address] [place] [address] PCP - General 03/23/22 documented as of this encounter
--- OUTSIDE RECORDS SUMMARY | 2025-01-14 07:21 | XMS_ITS | Encounter Summary ---
Author Organization [facility] Address [address] [place] [address] Care Team Providers Care Commercial Account Manager Name Role Phone Jordan Wong MD Primary Care Provider [phone] Mitch Mello MD Unavailable [phone] Jr. Julio Henson DO Unavailable [phone] Alberto Ibrahim DPM Unavailable [phone] Jordan Wong MD Unavailable [phone] Julio Huddleston MD Unavailable Hudson Stevenson MD Unavailable [phone] Ktity Edmond OD Unavailable Korin Kraft RN Unavailable [...] PM EST Narrative 05/22/2024 5:07 [place] [address] Cardiology Report Signed Patient: JUAN MIGUEL JENNINGS MR#: [id number] : 1950 Acct:[id number] Age/Sex: 74 / M ADM Date: 05/22/24 Loc: CARD Attending Dr: PAUL WEN APRN Ordering Physician: PAUL WEN APRN Date of Service: 05/22/24 Procedure(s): CA echo doppler complete Accession Number(s): [id number] cc: JORDAN WONG MELINDA APRN Patient Name: JUAN MIGUEL JENNINGS MR#: [id number] : 1950 Exam Date: 05/22/2024 Ordering Doctor: [...] M.D. Signed By: 05/22/241706 DD/ 05 TD/TT: Wire Transfer Clerk: Procedure Note Radiology, Radiologist, MD - 05/22/2024 [place] [address] Cardiology Report Signed Patient: JUAN MIGUEL JENNINGS R#: [id number] : 1950cct:[id number] Age/Sex: 74 / MADM Date: 05/22/24 Loc: CARD Attending Dr: PAUL WEN APRN Ordering Physician: PAUL WEN APRN Date of Service: 05/22/24 Procedure(s): CA echo doppler complete Accession Number(s): [id number] cc: JORDAN WONG ; PAUL WEN APRN Patient Name: JUAN MIGUEL JENNINGS MR#: [id number] : 1950 Exam Date: 05/22/2024 Ordering Doctor: PAUL WEN [facility] ECHOCARDIOGRAM REPORT PROCEDURE: CA ECHO DOPPLER [...] Diego M.D. Signed By:05/22/241706 DD/ 05 TD/TT: Wire Transfer Clerk: [facility] External Data Provider [facility] Final Result * (ABNORMAL) ALL TESTOSTERONE (05/22/2024 8:39 AM EST) [facility] TESTOSTERONE 91(A) 264 - 916 ng/dL [facility] Comment: Adult male reference interval is based on a population of healthy nonobese males (BMI <30) between 19 and 39 years old. Lonnie et.al. JCEM 2017,102;8666-0515. PMID: [id number]. Performed at: [address], [place], [place] [id number] Supply Clerk: Zeke Almaguer PhD, Phone: [phone] 05/22/2024 8:39 AM EST 05/22/2024 8:40 AM EST Narrative [facility] - 05/23/2024 11:08 AM EST us Generic External Data Provider [facility] F inal Result JONN [facility] documented in this encounter Visit Diagnoses Not on filedocumented in this encounter Additional Health Concerns Assessment Noted Time PHQ-9 Depression Total Score: 0 05/17/20 9:00 AM EST documented as of this encounter Care Teams Commercial Account Manager Relationship Specialty Start Date End Date Jordan Wong MD 112 [facility] 100 [place] [address] PCP - General Family Medicine 10/25/22 Jordan Wong MD 112 [facility] 100 [place] [address] PCP - ACO Reach 08/05/23 Mitch Mello MD [address] [place] [address] Referring Physician Cardiology 05/17/23 07/24/24 Jr. Julio Henson DO 112 [facility] 150 [place] [address] Referring Physician Orthopaedic Surgery 05/17/23 Alberto Ibrahim DPM [address] [place], [place] [address] Referring Physician Podiatry 05/17/23 Julio Huddleston MD [address] [place] [phone] Referring Physician Family Medicine 07/25/24 Hudson Stevenson MD 290 [place] [address] Referring Physician Urology 07/25/24 Kitty Edmond OD [address] [place] [address] Referring Physician Optometry 07/25/24 Korin Kraft, ARUN [address] [place] [address] Registered Nurse Family Medicine 12/24/24 12/31/24 documented as of this encounter
--- OUTSIDE RECORDS SUMMARY | 2025-01-14 07:22 | XMS_ITS | Encounter Summary ---
Author Organization [facility] Address [address] [place] [place] [address] Care Team Providers Care Dragger Name Role Phone Celi Wong MD Primary Care Provider Mitch Mello MD Unavailable [phone] Jr. Julio Henson DO Unavailable [phone] Alberto Ibrahim DPM Unavailable [phone] Celi Wong MD Unavailable [phone] Julio Huddleston MD Unavailable [phone] Hudson Stevenson MD Unavailable Kitty Edmond OD [...] AM EST Narrative 05/18/2024 10:07 [place] [address] Nuclear Medicine Report Signed Patient: JUAN MIGUEL JENNINGS MR#: [id number] : 1950 Acct:[id number] Age/Sex: 74 / M ADM Date: 05/17/24 Loc: CARD Attending Dr: PAUL WEN APRN Ordering Physician: PAUL WEN APRN Date of Service: 05/17/24 Procedure(s): NM zainab perf SPECT rest str Accession Number(s): [id number] cc: CELI WONG ; PAUL WEN APRN Patient Name: JUAN MIGUEL JENNINGS MR#: [id number] : 1950 Exam Date: 05/17/2024 Ordering Doctor: [...] LOCATION: Mid-anterior. Mid-inferior. Apical anterior. Apical inferior. [place]. SIZE: Large (5 or more segments). SEVERITY: [...] Signed By: 05/18/24 1007 DD/ 1006 TD/TT: Dye Padder Operator: Procedure Note Radiology, Radiologist, - 05/18/2024 [place] [address] Nuclear Medicine Report Signed Patient: JUAN MIGUEL JENNINGS JMR#: [id number] : 1950cct:[id number] Age/Sex: 74 / MADM Date: 05/17/24 Loc: CARD Attending Dr: PAUL WEN APRN Ordering Physician: PAUL WEN APRN Date of Service: 05/17/24 Procedure(s): NM zainab perf SPECT rest str Accession Number(s): [id number] cc: CELI WONG ; PAUL WEN APRN Patient Name: JUAN MIGUEL JENNINGS MR#: [id number] : 1950 Exam Date: 05/17/2024 Ordering Doctor: PAUL WEN [facility] RADIOLOGY REPORT PROCEDURE: NM ZAINAB PERF [...] LOCATION: Mid-anterior. Mid-inferior. Apical anterior. Apical inferior. [place]. SIZE: Large (5 or more segments). SEVERITY: [...] M.D. Signed By:05/18/24 1007 DD/ 1006 TD/TT: Dye Padder Operator: us Generic External Data Provider [facility] Final Result documented in this encounter Visit Diagnoses Not on filedocumented in this encounter Additional Health Concerns Assessment Noted Time PHQ-9 Depression Total Score: 0 05/17/20 23 9:00 AM EST documented as of this encounter Care Teams Dragger Relationship Specialty Start Date End Date Celi Wong MD [address] [place] [address] PCP - General Family Medicine 10/25/22 Celi Wong MD [address] [place] [address] PCP - ACO Reach 08/05/23 Mitch Mello MD [address] [place] [address] Referring Physician Cardiology 05/17/23 07/24/24 Jr. Julio Henson DO [address] [place] [address] Referring Physician Orthopaedic Surgery 05/17/23 Alberto Ibrahim DPM 1900 [facility] [address] Referring Physician Podiatry 05/17/23 Julio Huddleston MD [address] [place] [address] Referring Physician Family Medicine 07/25/24 Hudson Stevenson MD [address] [place], [place] [address] Referring Physician Urology 07/25/24 Kitty Edmond OD [address] [place] [address] Referring Physician Optometry 07/25/24 Korin Kraft, ARUN [address] [place] [address] Registered Nurse Family Medicine 12/24/24 12/31/24 documented as of this encounter
--- OUTSIDE RECORDS SUMMARY | 2025-01-14 07:22 | XMS_ITS | Encounter Summary ---
Author Organization [facility] Address [address] [place] [address] Care Team Providers Care Director Of Donor Relations Name Role Phone Jordan Wong MD Primary Care Provider [phone] Mitch Mello MD Unavailable [phone] Jr. Julio Henson DO Unavailable Alberto Ibrahim DPM Unavailable Jordan Wong MD Unavailable [phone] Julio Huddleston MD Unavailable Hudson Setvenson MD Unavailable Kitty Edmond OD Unavailable Korin Kraft RN Unavailable Encounter Details Date Type Department Care Team (Late st Contact Info) Description 05/21/2024 Abstract [facility] Podiat[facility] [address] [place] [address] Alberto Ibrahim DPArin 1900 [place], [place] [address] Social History Tobacco Use Types Packs/Day Years [...] of this encounter Care Teams Director Of Donor Relations Relationship Specialty Start Date End Date Jordan Wong MD 112 [facility] 100 [place] [address] PCP - General Family Medicine 10/25/22 Jordan Wong MD 112 [facility] 100 [place] [address] PCP - ACO Reach 08/05/23 Mitch Mello MD [address] [place] [address] Referring Physician Cardiology 05/17/23 07/24/24 Jr. Julio Henson DO 112 [facility] 150 [place] [address] Referring Physician Orthopaedic Surgery 05/17/23 Alberto Ibrahim DPM [address] [place] [place], [place] [address] Referring Physician Podiatry 05/17/23 Julio Huddleston MD [address] [place] [phone] Referring Physician Family Medicine 07/25/24 Hudson Stevenson MD [address] [place] [place] [phone] Referring Physician Urology 07/25/24 Kitty Edmond OD 2[address] [facility] [place] [address] Referring Physician Optometry 07/25/24 Korin Kraft, RN [address] [place] [address] Registered Nurse Family Medicine 12/24/24 12/31/24 documented as of this encounter
--- OUTSIDE RECORDS SUMMARY | 2025-01-14 07:23 | XMS_ITS | CCD ---
Author Organization [facility] Care Team Providers Care Stores Assistant Name Role Phone PHYSICIAN, DEFAULT Unavailable Unavailable PHYSICIAN, DEFAULT Unavailable Unavailable Diego Bartlett Primary Care Provider Jordan Duncan Primary Care Provider Jordan Duncan MD Primary Care Provider JORDAN DUNCAN Primary Care Physician [phone] Jordan Duncan MD Primary Care Provider [phone] JORDAN DUNCAN Primary Care Physician Unavail able Jordan Duncan MD Primary Care Provider ENEDINA HARGROVE Attending Unavailable HEMEYER ., DR ALATORRE Primary Care Unavailable ENEDINA HARGROVE Admitting Unavailable ENEDINA HARGROVE Admitting Unavailable ENEDINA HARGROVE Attending Unavailable HEMEYER ., DR ALATORRE Primary Care Unavailable ENEDINA HARGROVE Admitting Unavailable ENEDINA HARGROVE Attending Unavailable HEMEYER ., DR ALATORRE Primary Care Unavailable OAR, DR BRODY Ordoñez Consulting Unavailable ENEDINA HARGROVE [...] BOLTON Consulting Unavailable ENEDINA HARGROVE Attending Unavailable ENEDINA HARGROVE Admitting Unavailable HEMEYER ., DR ALATORRE Primary Care Unavailable ENEDINA HARGROVE Attending Unavailable ENEDINA HARGROVE Admitting Unavailable HEMEYER ., DR ALATORRE Primary Care Unavailable Dakota NOLASCO, Jordan Brown Primary Care Provider Funmilayo NOLASCO, Mitch Armendariz Unavailable [phone] Jr. Anuja Henson DO Unavailable Alexandria DALAL, Brody Xiao Unavailable Jordan Duncan MD Unavailable Jordan Duncan MD Primary Care Provider Jordan Duncan MD Unavailable Jordan Duncan MD Primary Care Provider Jordan Duncan MD Unavailable Fernanda Solomon Attending [...] Unavailable HEMEYER, JORDAN Brown Primary Care Unavailable HEMEENOC, JORDAN Brown Primary Care Unavailable WILLI SANCHEZ Referring Unavailable HEMEYER, JORDAN Brown Primary Care Unavailable WILLI SANCHEZ Referring Unavailable Anuja Huddleston MD Unavailable [phone] Marjorie Saavedra MDrick R Unavailable Kitty Edmond OD Unavailable Anuja Huddleston [...] Attending Unavailable HEMEYER, JORDAN Brown Attending Unavailable Abena DIAS, Korin Unavailable Enedina Hargrove DPM Attending Provider Enedina Hargrove Attending Unavailable Enedina Hargrove Admitting Unavailable PAUL CLEMONS Attending Unavailable ANUJA HUDDLESTON Attending Unavailable RACHEL ALEJO Attending Unavailable Allergies Allergy Classification Reported Allergen(s) Allergy Type Date of Onset Reaction(s) Facility (4 sources) Clindamycin/Linc omycin Propensity to adverse reactions to drug 8 Diarrhea [place] ([place] sources) Clindamycin Drug Allergy 2 [facility] [employer] (4 sources) glipiZIDE; Translations: [GLIPIZIDE] Drug Allergy 2 [facility] (20 sources) metFORMIN; Translations: [METFORMIN] Drug Allergy 2 Diarrhea, Unknown [facility] [employer] Work Phone: (20 sources) Pravastatin; Translations: [PRAVASTATIN] Drug Allergy 2 Unknown [employer] Work Phone: (4 sources) rosuvastatin; Translations: [ROSUVASTATIN] Drug Allergy 2 [facility] [employer] Work Phone: (2 sources) Clindamycin; Translations: [CLINDAMYCIN] Drug Allergy 7 [facility] Repository (1 source) glipiZIDE Drug Allergy 7 [facility] (1 source) metFORMIN Drug Allergy 7 [facility] (20 sources) Clindamycin Drug Allergy 2 Diarrhea [facility] (20 sources) ezetimibe; Translations: [EZETIMIBE] Drug Allergy 2 Unknown [facility] (20 sources) glipiZIDE Drug Allergy 2 Diarrhea, Unknown [facility] (20 sources) Rosuvastatin calcium Allergy to substance 1 Unknown [facility] Medications Current Medications Medication Drug Class(es) Dates Sig (Normalized) Sig (Original) amLODIPine 5 mg oral tablet (13 sources) Dihydropyridine Calcium [employer] Start: 06-08-2024 [...] sodium 75 mg delayed release oral tablet (20 sources) Nonsteroidal Anti-inflammatory Drug Start: 12-24-2024 End: [...] 01/16/2025 Active gabapentin 100 mg oral capsule (9 sources) Anti-epileptic Agent Start: 09-18-2024 End: 10-18-2024 [...] mononitrate 30 mg extended release oral tablet (13 sources) Nitrate Vasodilator Start: 06-08-2024 End: 06-08-2025 [...] 02/25/20 Status: Ordered take 2 tablets by [facility] once daily losartan (COZAAR) 25 MG tablet [...] MG 24 hr tablet Indications: Atherosclerosis of [place] coronary artery of [place] heart without angina pectoris (CMS/HCC) Take 1.5 tablets (150 mg) by mouth in the morning. Do not crush or chew.. 135 tablet 1 04/20/2023 10/17/2023 Active take 1 tablet by [facility] once daily metoprolol succinate (TOPROL XL) 50 MG extended release tablet Take 1 tablet by mouth nightly 100mg in the am, 50mg in the pm Active take 2 tablets by [facility] twice daily in the evening [...] BID, # 180 cap(s), Refills(s) 3, Pharmacy: [facility]/pharmacy #[id number], 198, cm, 12/05/23 10:49:00 EDT, Height/Length Dosing, 150.3, kg, 12/05/23 10:49:00 EDT, Weight Dosing Start Date: 01/11/24 Status: Ordered Start: 06-18-2022 take 1 capsule by [facility] once daily tamsulosin 0.4 mg Cap 0.4 mg = 1 cap(s), Oral, Daily, # 90 cap(s), Refills(s) 3, Pharmacy: [facility]/pharmacy #[id number], 198, cm, 11/05/22 10:14:00 EDT, Height/Length Dosing, 150, kg, 11/05/22 10:14:00 EDT, Weight Dosing Start Date: 05/26/23 Status: Ordered take 1 capsule by [facility] every twenty-four hours in the [...] # 10 mL, Refills(s) 1, Pharmacy: [facility]/pharmacy #[id number], 198, cm, 12/05/23 10:49:00 EDT, Height/Length Dosing, 150.3, kg, 12/05/23 10:49:00 EDT, Weight Dosing Start Date: 03/27/24 Status: Ordered Start: 01-03-2024 testosterone c ypionate 200 mg/mL IM Richelle 400 mg, IntraMuscular, q4wk, # 10 mL, Refills(s) 1, Pharmacy: [facility]/pharmacy #[id number], 198, cm, 12/05/23 10:49:00 EDT, Height/Length Dosing, 150.3, kg, 12/05/23 10:49:00 EDT, Weight Dosing Start Date: 01/03/24 Status: Ordered Start: 06-20-2023 testosterone c ypionate 200 mg/mL IM Richelle 450 mg, IntraMuscular, q4wk, # 10 mL, Refills(s) 1, Pharmacy: [facility]/pharmacy #[id number], 198, cm, 06/20/23 11:05:00 EST, Height/Length Dosing, 149, kg, 06/20/23 11:05:00 EST, Weight Dosing Start Date: 06/20/23 Status: Ordered Start: 05-09-2023 testosterone c ypionate 200 mg/mL IM Richelle 400 mg, IntraMuscular, q4wk, # 10 mL, Refills(s) 1, Pharmacy: [facility]/pharmacy #[id number], 198, cm, 11/05/22 10:14:00 EDT, Height/Length Dosing, 150, kg, 11/05/22 10:14:00 EDT, Weight Dosing Start Date: 05/09/23 Status: Ordered Start: 02-08-2023 testosterone c ypionate 200 mg/mL IM Richelle 400 mg, IntraMuscular, q4wk, # 10 mL, Refills(s) 2, Pharmacy: [facility]/pharmacy #[id number], 198, cm, 11/05/22 10:14:00 EDT, Height/Length Dosing, 150, kg, 11/05/22 10:14:00 EDT, Weight Dosing Start Date: 02/08/23 Status: Ordered Start: 08-27-2022 testosterone c ypionate 200 mg/mL IM Richelle 400 mg, IntraMuscular, q4wk, # 10 mL, Refills(s) 2, Pharmacy: [facility]/pharmacy #[id number], 198, cm, 06/18/22 9:10:00 EST, Height/Length Dosing, 164, kg, 06/18/22 9:10:00 EST, Weight Dosing Start Date: 08/27/22 Status: Ordered testosterone cypionate 200 mg/mL intramuscular solution (17 sources) Start: 02-01-2022 testosterone c ypionate 200 mg/mL intramuscular solution 400 mg = 2 mL, IntraMuscular, q4wk, 400mg once a month, # 10 mL, Refills(s) 3, Pharmacy: [facility]/pharmacy #[id number], 198, cm, 02/01/22 9:53:00 EDT, Height/Length Dosing, 166, kg, 02/01/22 9:53:00 EDT, Weight Dosing Start Date: 02/01/22 Status: Ordered Start: 11-23-2021 testosterone c ypionate 200 mg/mL intramuscular solution 350 mg, IntraMuscular, q4wk, # 10 mL, Refills(s) 1, Pharmacy: [facility]/pharmacy #[id number], 198, cm, 08/03/21 14:37:00 EST, Height/Length Dosing, 166, kg, 08/03/21 14:37:00 EST, Weight Dosing Start Date: 11/23/21 Status: Ordered Start: 08-03-2021 testosterone c ypionate 200 mg/mL intramuscular solution 350 mg, IntraMuscular, q4wk, # 10 mL, Refills(s) 1, Pharmacy: [facility]/pharmacy #[id number], 198, cm, 08/03/21 [...] Coronary arteriosclerosis; Translations: [Atherosclerotic heart disease of [place] coronary artery without angina pectoris] Onset: 04-08-2017 Resolved: 01-13-2023 02-19-2019 Chronic Diabetes mellitus with complications (20 sources) Diabetic [...] 01-11-2023 Chronic 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 (1 source) 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; 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] Onset: 10-12-2022 Episodic 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 (1 source) retirement (current) use of aspirin; Translations: [DRAPERY OPERATOR CURRENT USE OF ASPIRIN] Onset: 10-12-2022 Episodic 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 (1 source) retirement (current) use of oral hypoglycemic drugs; Translations: [DRAPERY OPERATOR USE ORAL HYPOGLYCEMIC DX] Onset: 10-12-2022 Episodic 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 (1 source) Other ad terminal makeup operator (current) drug therapy; Translations: [OTH SNF CURRENT [...] Chronic Other diseases of bladder and urethra (14 sources) Overactive bladder; Translations: [Overactive bladder] Onset: [...] 09-20-2022 Episodic Residual codes; unclassified (2 sources) Active [...] 01-14-20 Resolved : 01-14-20 23 01-13-2023 Chronic Coronary atherosclerosis and other heart disease (6 sources) History of placement of stent for coronary artery disease; Translations: [Presence of coronary angioplasty implant and graft] Onset: 05-13-20 14 05-13-2014 Episodic E Codes: Adverse effects of medical drugs (20 sources) HMG COA reductase inhibitor adverse reaction; Translations: [Adverse effect of antihyperlipidemic and antiarteriosclerotic drugs, initial encounter] Onset: 09-11-19 01-11-2023 Episodic Genitourinary symptoms and ill-defined conditions [...] 01-24-20 Resolved : 01-14-20 23 01-13-2023 Chronic Malaise and fatigue (2 sources) Other fatigue; Translations: [Other fatigue] Onset: 05-02-20 Episodic Mood disorders (20 sources) Mood disorders Onset: [...] unspecified; Translations: [PAIN UNSPECIFIED] Onset: 01-20-20 Episodic Residual codes; unclassified (2 sources) Other specified health status; Translations: [Other specified health status] Onset: 07-16-19 Episodic Screening and history of mental health [...] Test Name Value Interpretation Reference Range Facility 36 01-08-2025 36 MD Maria G Peralta MA Blood testing ok, continue leqvio. Advised patient of Dr. Huddleston's findings. Patient verbalized understanding and agreed with plan of care. [facility] Efren 01-01-2025 L Specimen: [id number] Received: 01/02/25 Status: PATRICIA Zhu Num: [id number] Spec Type: Surgical Subm Dr: Enedina Hargrove DPM, MS Tissues: A DIGIT AMPUTATION (RIGHT FIFTH TOE) Procedures: HE/3, Gross/Micro L4, Decalcification Age/ Patient Sex Location Account Attending Physician Juan Miguel Jennings 74/M LABELL [id number] Enedina Hargrove DPM, MS SPEC NUM: [id number] RECD: 01/02/25 STATUS: PATRICIA ZHU NUM: [id number] JUANA: 01/01/25 [facility] [address]: Enedina Hargrove DPM, MS ENTERED: 01/02/25 [facility] DR: Christal,Lab SPEC TYPE: Surgical DEPT: RADHA MILNER ENTERED BY: [id number] RECV BY: [id number] ORDERED: HE/3, Gross/Micro L4, Decalcification ORDERED: HE/3, Gross/Micro L4, Decalcification Pathological Diagnosis Right foot, fifth toe, amputation: - Fifth toe with degenerative changes. - No evidence of acute myelitis identified. Clinical Information Diabetic foot ulcer-right fourth medial toe webspace, hammertoe right fifth toe Gross Description Received in formalin labeled with the patients name, date of , and right fifth toe is a digit disarticulated at the right fifth metatarsal joint, 5.2 cm in length by up to 2 cm in diameter. The dorsal distal aspect of the specimen displays a sheet of hollingsworth-chacon, keratinized nail, 0.9 x 0.6 x 0.1 cm. The proximal 2 cm of the specimen is received without overlying soft tissue or skin, while the remainder of the specimen is covered by chacon-hollingsworth, wrinkled skin. A longitudinal section of the digit is submitted in A1?A2 after decalcification with tangential cross-sections of the proximal skin margin submitted in A3. (3, , [id number] A)JClaudette Microscopic Description Microscopic examination is performed. Specimen: [id number] Received: 01/02/25 Status: PATRICIA Zhu Num: [id number] Spec Type: Surgical Subm Dr: Enedina Hargrove,KATLIN, MS Tissues: A DIGIT AMPUTATION (RIGHT FIFTH TOE) Procedures: HE/3, Gross/Micro L4, Decalcification Patient: MilagrossaurabhGabriela mansfieldnis [id number] (Continued) Specimen: [id number] Received: 01/02/25 (Continued) Signed (signature on file) Christiano Lombardi MD 01/07/25 0938 Specimen: [id number] Received: 01/02/25 Status: PATRICIA Zhu Num: [id number] Spec Type: Surgical Subm Dr: Enedina Hargrove,DPM, MS Tissues: A DIGIT AMPUTATION (RIGHT FIFTH TOE) Procedures: HE/3, Gross/Micro L4, Decalcification Patient: Juan Miguel Jennings [id number] (Continued) Specimen: [id number] Received: 01/02/25 (Continued) CPT Codes 03229, 02352 Specimen: [id number] Received: 01/02/25 Status: PATRICIA Zhu Num: [id number] Spec Type: Surgical Subm Dr: Enedina Hargrove,KATLIN, MS Tissues: A DIGIT AMPUTATION (RIGHT FIFTH TOE) Procedures: HE/3, Gross/Micro L4, Decalcification Patient: Juan Miguel Jennings [id number] (Continued) Signed (signature on file) Christiano Lombardi MD 01/07/25 0938 [facility] XR FOOT RT MIN 3Von 01-02-20 [place] [address] XRay Report Signed Patient: JUAN MIGUEL JENNINGS MR#: [id number] : 1950 Acct:[id number] Age/Sex: 74 / M ADM Date: 01/01/25 Loc: SURGOUT Attending Dr: Enedina Hargrove D.P.M. Ordering Physician: Enedina Hargrove D.P.M. Date of Service: 01/01/25 Procedure(s): XR foot RT min 3V Accession Number(s): [id number] cc: JORDAN DUNCAN ; Enedina Hargrove D.P.M. [place] [id number] Patient Name: JUAN MIGUEL JENNINGS MRN: [facility]:[id number] date: 1950 Sex: M Assigned Patient Location: SURGOUT Current Patient Location: Accession/Order Number: [id number] Exam Date: 01/01/2025 15:03 Report Date: 01/01/2025 15:04 At the request of: ENEDINA HARGROVE DPM Procedure: XR foot RT min 3V [...] OSTEOMYELITIS. Impression dictated by: John Pike Jr., D.OBinta 01/01/2025 3:04 PM Dictation Location: [place] [address] Electronically authenticated by: [id number] Y Date: 01/01/2025 15:04 Dictated By: John Pike M.D. Signed By: 01/01/25 1506 DD/ 1504 TD/TT: Records Section Supervisor: [facility] Radiology, Radiologist, MD - 01/01/2025 [place] [address] XRay Report Signed Patient: JUAN MIGUEL JENNINGS MR#: [id number] : 1950 Acct:[id number] Age/Sex: 74 / M ADM Date: 01/01/25 Loc: SURGOUT Attending Dr: Enedina Hargrove D.P.M. Ordering Physician: Enedina Hargrove D.P.M. Date of Service: 01/01/25 Procedure(s): XR foot RT min 3V Accession Number(s): [id number] cc: JORDAN DUNCAN ; Enedina Hargrove D.P.M. The [place] [id number] Patient Name: JUAN MIGUEL JENNINGS MRN: [id number] date: 1950 Sex: M Assigned Patient Location: [facility] Current Patient Location: Accession/Order Number: [id number] Exam Date: 01/01/2025 15:03 Report Date: 01/01/2025 15:04 At the request of: ENEDINA HARGROVE DPArin Procedure: XR foot RT min 3V [...] Jr., D.O. 01/01/2025 3:04 PM Dictation Location: [place] [address] Electronically authenticated by: [id number] Y Date: 01/01/2025 15:04 Dictated By: John Pike M.D. Signed By: 01/01/25 1506 DD/ 1504 TD/TT: Records Section Supervisor: [facility] Radiology Study observation (narrative) [facility] XR FOOT RT MIN 3VOrdered By: Radiologist Radiology on 01-01-2025 [facility] e Work Phone: ALL CBC WITH AUTO DIFFon BASOPHILS ABSOLUTE AUTO 0 [facility] Basophils/100 WBC (Bld) 0.6 % 0.2 - 2.0 % [facility] Eosinophils/100 WBC (Bld) 5.5 % 0.9 - 7.0 % [facility] Erythrocyte distribution width (RBC) [Ratio] 13.2 % 11.0 - 15.0 % [facility] Hematocrit (Bld) [Volume fraction] 40.2 % Low 42.0 - 54.0 % [facility] Hemoglobin (Bld) [Mass/Vol] 13.8 g/dL Low 14.0 - 18.0 g/dL [facility] IMMATURE GRANULOCYTES ABS AUTO 0.03 [facility] Immature granulocytes/100 WBC (Bld) 0.4 % 0.0 - 0.5 % [facility] Interpretation and review of laboratory results Abnormal [facility] LYMPHOCYTES ABSOLUTE AUTO 1.4 [facility] Lymphocytes/100 WBC (Bld) 19.7 % Low 20.5 - 60.0 % [facility] MCH (RBC) [Entitic mass] 33 pg 25.9 - 34.0 pg [facility] MCHC (RBC) [Mass/Vol] 34.3 g/dL 29.9 - 35.2 g/dL [facility] MCV (RBC) [Entitic vol] 96.2 fL High 80.0 - 94.0 fL [facility] MONOCYTES ABSOLUTE AUTO 0.8 [facility] Monocytes/100 WBC (Bld) 11.2 % 1.7 - 12.0 % [facility] NEUTROPHILS ABSOLUTE AUTO 4.4 [facility] Neutrophils/100 WBC (Bld) 62.6 % 43.0 - 75.0 % [facility] Platelet mean volume (Bld) [Entitic vol] 11.9 fL 9.5 - 13.5 fL [facility] EO # 0.4 [facility] PLT 141 Low [facility] RBC 4.18 Low [facility] WBC 7.1 [facility] XR CHEST 2Von 12-28-2024 [place] [address] XRay Report Signed Patient: JUAN MIGUEL JENNINGS MR#: [id number] : 1950 Acct:[id number] Age/Sex: 74 / M ADM Date: 12/28/24 Loc: PST Attending Dr: Enedina Hargrove D.P.M. Ordering Physician: Enedina Hargrove D.P.M. Date of Service: 12/28/24 Procedure(s): XR chest 2V Accession Number(s): [id number] cc: JORDAN DUNCAN ; Enedina Hargrove D.P.M. [address] [address] Patient Name: JUAN MIGUEL JENNINGS MRN: [facility]:[id number] date: 1950 Sex: M Assigned Patient Location: [facility] Current Patient Location: SURGRUST Accession/Order Number: [id number] Exam Date: 12/28/2024 15:02 Report Date: 12/28/2024 15:03 At the request of: ENEDINA HARGROVE DPM Procedure: XR chest 2V Plain film [...] Palacios M.D. 12/28/2024 3:03 PM Dictation Location: [place] [address] Electronically authenticated by: [id number] Y Date: 12/28/2024 15:03 Dictated By: Tomer Palacios D.O. Signed By: 12/28/24 1506 DD/ 1503 TD/TT: Records Section Supervisor: [facility] Radiology, Radiologist, MD - 12/28/2024 The [place] [id number] XRay Report Signed Patient: JUAN MIGUEL JENNINGS MR#: [id number] : 1950 Acct:[id number] Age/Sex: 74 / M ADM Date: 12/28/24 Loc: [facility] Attending Dr: Enedina Hargrove D.P.M. Ordering Physician: Enedina Hargrove D.P.M. Date of Service: 12/28/24 Procedure(s): XR chest 2V Accession Number(s): [id number] cc: JORDAN DUNCAN ; Enedina Hargrove D.P.M. The [address] [address] Patient Name: JUAN MIGUEL JENNINGS MRN: [facility]:[id number] date: 1950 Sex: M Assigned Patient Location: [facility] Current Patient Location: SURGOUT Accession/Order Number: [id number] Exam Date: 12/28/2024 15:02 Report Date: 12/28/2024 15:03 At the request of: ENEDINA HARGROVE DPM Procedure: XR chest 2V Plain film [...] Palacios M.D. 12/28/2024 3:03 PM Dictation Location: [place] [address] Electronically authenticated by: [id number] Y Date: 12/28/2024 15:03 Dictated By: Tomer Palacios D.O. Signed By: 12/28/24 1506 DD/ 150 TD/TT: Records Section Supervisor: [facility] Radiology Study observation (narrative) [facility] XR CHEST 2VOrdered By: [facility] on [facility]-28-2024 [facility] Work Phone: ALL LIPID PROFILE (FASTING)o n 12-26-2024 CHOL HDL RATIO 4.3 [facility] Comment on above: 3.3 - 4.4 LOW RISK 4.4 - 7.1 AVERAGE RISK 7.1 - 11.0 MODERATE RISK >11.0 HIGH RISK Cholesterol [Mass/Vol] 172 mg/dL NINF - 200 mg/dL [facility] Cholesterol in HDL [Mass/Vol] 40 mg/dL 40 - 60 mg/dL [facility] Comment on above: > or =60 mg/dl - LOW CARDIOVASCULAR RISK <40 mg/dl - HIGH CARDIOVASCULAR RISK Interpretation and review of laboratory results Abnormal [facility] Magnesium [Mass/Vol] 77 mg/dL [facility] Comment on above: <100 mg/dl OPTIMAL 100-129 mg/dl NEAR OR ABOVE OPTIMAL 130-159 mg/dl BORDERLINE HIGH 160-189 mg/dl HIGH >190 mg/dl VERY HIGH Magnesium [Mass/Vol] 55.8 mg/dL [facility] Triglyceride [Mass/Vol] 279 mg/dL High NINF - 150 mg/dL [facility] HMHP LIVER PANELon 5 Albumin [Mass/Vol] 3.5 g/dL 3.4 - 5.0 g/dL [facility] ALBUMIN GLOBULIN RATIO 1 [facility] ALP [Catalytic activity/Vol] 77 U/L 46 - 116 U/L [facility] ALT [Catalytic activity/Vol] 44 U/L 16 - 63 U/L [facility] AST [Catalytic activity/Vol] 23 U/L 15 - 37 U/L [facility] Bilirubin [Mass/Vol] 0.5 mg/dL 0.2 - 1 .0 mg/dL [facility] Bilirubin.indirect [Mass/Vol] 0.1 mg/dL 0.0 - 0.2 mg/dL [facility] Globulin (S) [Mass/Vol] 3.6 g/dL [facility] Protein [Mass/Vol] 7.1 g/dL 6.4 - 8.2 g/dL [facility] No Panel Informationon 12-26 [facility]-21-2024 Follow-up visit [id number] Juan Miguel Jennings 1950 Date Provider Department Center 12/21/2024 [id number], ADAM CARD [facility] Family History Problem Relation Age of Onset Heart disease Mother Heart disease Father Family Status - Relation Status Age at Mother Father Level of Service:[address] [place] OFFICE/OUTPATIENT ESTABLISHED MOD MDM 30 MIN Normal [facility] CBC W/AUTO DIFFon 10-11-2024 ABS IMMATURE GRAN 0.03 K/uL Normal 0.00-0.06 [facility] Comment on above: Result Comment: UNLE SS OTHERWISE INDICATED, ALL TESTING PERFORMED AT: [employer] [address] [place] [address] FLARE BREAKER: JONI NI M.D. CLIA NUMBER [id number] CAP ACCREDITATION AUID [id number] ABS NEUTROPHILS 3.59 K/uL Normal 1.9-8.0 Pathology [...] <= 20 mg/L (U) [Mass/Vol] 150 mg/dL [facility] are Albumin/Creatinine DL <= 1.0 mg/L (U) [Ratio] 300 [facility] Creatinine (U) [Mass/Vol] 50 mg/dL [facility] No Panel Informationon 09-18 Interpretation and review of laboratory results [facility]HENS[facility] METABOL[facility] PANE Efren 09-13-2024 Albumin [Mass/Vol] 4.3 g/dL Normal 3.6-5.1 [facility] Comment on above: Performed By: #### 4 , 7599 #### [facility] of [address], [address] [place] [address] Agricultural Education Teacher: Toan Lara MD #### [id number] #### [facility]-[address] Agricultural Education Teacher: Parvin Gray Albumin/Globulin [Mass ratio] 1.5 {ratio} Normal 1.0-2.5 [facility] Comment on above: Performed By: #### 4 , 7599 #### [facility] of [address], [address] [place] [address] Agricultural Education Teacher: Toan Lara MD #### [id number] #### [facility]-[address] Agricultural Education Teacher: Parvin Gray ALP [Catalytic activity/Vol] 64 U/L Normal 35-144 [facility] Comment on above: Performed By: #### 4 , 7599 #### [facility] of [address], [address] [place] [address] Agricultural Education Teacher: Toan Lara MD #### [id number] #### [facility]-[address] Agricultural Education Teacher: Parvin Gray ALT [Catalytic activity/Vol] 32 U/L Normal 9-46 [facility] Comment on above: Performed By: #### 4 , 7599 #### [facility] of [address], [address] [place] [address] Agricultural Education Teacher: Toan Lara MD #### [id number] #### [facility]-[address] Agricultural Education Teacher: Parvin Gray AST [Catalytic activity/Vol] 23 U/L Normal 10-35 [facility] Comment on above: Performed By: #### 4 , 0 #### [facility] of [address], [address] [place] [address] Agricultural Education Teacher: Toan Lara MD #### [id number] #### [facility] [address] [place] [address] Agricultural Education Teacher: Parvin Gray Bilirubin [Mass/Vol] 0.7 mg/dL Normal 0.2-1.2 [facility] Comment on above: Performed By: #### 4 , 0 #### [facility] [address], [address] [place] [address] Agricultural Education Teacher: Toan Lara MD #### [id number] #### [facility] [address] [place] [address] Agricultural Education Teacher: Parvin Gray BUN/CREATININE RATIO SEE NOTE: Normal 6-22 [facility] Comment on above: Result Comment: Not Reported: BUN and Creatinine are within reference range. Performed By: #### 4 , 7599 #### [facility] [address], [address] [place] [address] Agricultural Education Teacher: Toan Lara MD #### [id number] #### [facility] [address] [place] [address] Agricultural Education Teacher: Parvin Gray Calcium [Mass/Vol] 9.3 mg/dL Normal 8.6-10.3 [facility] Comment on above: Performed By: #### 4 , 7599 #### [facility] [address], [address] [place] [address] Agricultural Education Teacher: Toan Lara MD #### [id number] #### [facility] [address] [place] [address] Agricultural Education Teacher: Parvin Gray Chloride [Moles/Vol] 105 mmol/L Normal 98-110 [facility] Comment on above: Performed By: #### 4 , 7599 #### [facility] [address], [address] [place] [address] Agricultural Education Teacher: Toan Lara MD #### [id number] #### [facility] [address] [place] [address] Agricultural Education Teacher: Parvin Gray CO2 [Moles/Vol] 26 mmol/L Normal 20-32 [facility] Comment on above: Performed By: #### 4 , 0 #### [facility] [place] [address] Agricultural Education Teacher: Toan Lara MD #### [id number] #### [facility] [address] Agricultural Education Teacher: Parvin Gray Creatinine [Mass/Vol] 0.84 mg/dL Normal 0.70-1.28 [facility] Comment on above: Performed By: #### 4 , 7599 #### [facility] [place] [address] Agricultural Education Teacher: Toan Lara MD #### [id number] #### [facility] [address] Agricultural Education Teacher: Parvin Gray GFR/1.73 sq M.predicted among non-blacks MDRD (S/P/Bld) [Vol rate/Area] 93 mL/min/{1.73_m2} Normal > OR = 60 [facility] Comment on above: Performed By: #### 4 , 7599 #### [facility] [place] [address] Agricultural Education Teacher: Toan Lara MD #### [id number] #### [facility] [address] Agricultural Education Teacher: Parvin Gray Globulin (S) [Mass/Vol] 2.8 g/dL Normal 1.9-3.7 [facility] Comment on above: Performed By: #### 4 , 0 #### [facility] [place] [address] Agricultural Education Teacher: Toan Lara MD #### [id number] #### [facility] [address] Agricultural Education Teacher: Parvin R Flati Glucose [Mass/Vol] 129 mg/dL High 65-99 [facility] Comment on above: Result Comment: Fasting reference interval For someone without known diabetes, a glucose value >125 mg/dL indicates that they may have diabetes and this should be confirmed with a follow-up test. Performed By: #### 4 , 0 #### [facility] [address], [address] [place] [address] Agricultural Education Teacher: Toan Lara MD #### [id number] #### [facility] [address] [place], [place] [id number] Agricultural Education Teacher: Parvin Ordoñez Flati Potassium [Moles/Vol] 4.7 mmol/L Normal 3.5-5.3 [facility] Comment on above: Performed By: #### 4 , 7599 #### [facility] [place] [address] Agricultural Education Teacher: Toan Lara MD #### [id number] #### [facility] [address] [place], [place] [phone] Agricultural Education Teacher: Parvin Ordoñez Flati Protein [Mass/Vol] 7.1 g/dL Normal 6.1-8.1 [facility] Comment on above: Performed By: #### 4 , 7599 #### [facility] [place] [address] Agricultural Education Teacher: Toan Lara MD #### [id number] #### [facility] [address] [place] [address] Agricultural Education Teacher: Parvin Ordoñez Flati Sodium [Moles/Vol] 140 mmol/L Normal 135-146 [facility] Comment on above: Performed By: #### 4 , 7599 #### [facility] [place] [address] Agricultural Education Teacher: Toan Lara MD #### [id number] #### [facility] [phone] Agricultural Education Teacher: Parvin Smita Flati Urea nitrogen [Mass/Vol] 23 mg/dL Normal 7-25 [facility] Comment on above: Performed By: #### 4 96, 7600 #### [facility] [address], [address] [place], [place] [id number] Agricultural Education Teacher: Toan Lara MD #### [id number] #### [facility] [address] [place] [phone] Agricultural Education Teacher: Parvin Gray HEMOGLOBIN A1con 09-13-2024 HEMOGLOBIN A1c [...] #### 4 96, 7600 #### [facility] [address], [address] [place], [place] [phone] Agricultural Education Teacher: Toan Lara MD #### [id number] #### [facility] [address] [place] [phone] Agricultural Education Teacher: Parvin Gray LIPID PANEL, STANDARDon 09-04 Cholesterol [Mass/Vol] 242 mg/dL High <200 [facility] Comment on above: Order Comment: FASTI NG:YES FASTING: YES Performed By: #### 4 96, 7600 #### [facility] [address], [address] [place] [address] Agricultural Education Teacher: Toan Lara MD #### [id number] #### [facility] [address] [place] [phone] Agricultural Education Teacher: Parvin Gray Cholesterol in HDL [Mass/Vol] 40 mg/dL Normal > OR = 40 [facility] Comment on above: Order Comment: FASTI NG:YES FASTING: YES Performed By: #### 4 96, 0 #### [facility] [address], [address] [place], [place] [address] Agricultural Education Teacher: Toan Lara MD #### [id number] #### [facility] [address] [place] [phone] Agricultural Education Teacher: Parvin Gray Cholesterol in LDL [Mass/Vol] 142 [...] LDL-C. Deion TORIBIO et al. MAHENDRA. 2013;310(19): 3019-2534 (http://education.Interventional Spine/faq/SJS093) Performed By: #### 4 , 7599 #### [facility] [address], [address] [place] [address] Agricultural Education Teacher: Toan Lara MD #### [id number] #### [facility] [address] [place] [phone] Agricultural Education Teacher: Parvin Gray Cholesterol.total/Ch olesterol in HDL [Mass ratio] 6.1 {ratio} High <5.0 [facility] Comment on above: Order Comment: FASTI NG:YES FASTING: YES Performed By: #### 4 , 7599 #### [facility] [place] [id number] [facility], [address] [place], [place] [id number] Agricultural Education Teacher: Toan Lara MD #### [id number] #### [facility] [address] [place] [phone] Agricultural Education Teacher: Parvin Gray NON HDL CHOLESTEROL 202 mg/dL (calc) High <130 [facility] Comment on above: Order Comment: FASTI NG:YES FASTING: YES Result Comment: For patients with diabetes plus 1 major ASCVD risk factor, treating to a non-HDL-C goal of <100 mg/dL (LDL-C of <70 mg/dL) is considered a therapeutic option. Performed By: #### 4 96, 7600 #### [facility] [address] [facility], [address] [place] [address] Agricultural Education Teacher: Toan Lara MD #### [id number] #### [facility] [address] [place] [phone] Agricultural Education Teacher: Parvin Gray Triglyceride [Mass/Vol] 389 mg/dL High <150 [facility] Comment on above: Order Comment: FASTI NG:YES FASTING: YES Result Comment: If a non-fasting specimen was collected, consider repeat triglyceride testing on a fasting specimen if clinically indicated. Aaliyah et al. J. of Clin. Lipidol. 2015;9:129-169. Performed By: #### 4 96, 7600 #### [facility] [address], [address] [place] [address] Agricultural Education Teacher: Toan Lara MD #### [id number] #### [facility] [address] [place] [phone] Agricultural Education Teacher: Parvin Gray Office Visiton 07-16-2024 Follow-up visit [id number] DickGabrielaJuan Miguel 1950 M Date Provider Department Center 07/16/2024 ANUJA ARMSTRONG [place] [facility] Family History Problem Relation Age of Onset Heart disease Mother Heart disease Father Family Status - Relation Status Age at Mother Father Level of Service:95196 [place] OFFICE/OUTPATIENT ESTABLISHED MOD MDM 30 MIN Normal [facility] 36on 07-09-2024 36 What is his blood pressure running? We can have him try holding amlodipine to see if this will help. We can see how he's feeling at his follow-up appt next week. Normal [facility] CBC W/AUTO DIFFon 06-21-2024 ABS IMMATURE GRAN 0.04 K/uL Normal 0.00-0.06 [facility] Comment on above: Result Comment: UNLE SS OTHERWISE INDICATED, ALL TESTING PERFORMED AT: [employer] [facility] [address] [place] [address] FLARE BREAKER: JONI NI M.D. CLIA NUMBER [id number] CAP ACCREDITATION AUID [id number] ABS NEUTROPHILS 5.59 K/uL Normal 1.9-8.0 [facility] 36on 06-08-2024 36 Regarding stress test result from 05/17/2024: Paul Clemons, AUGUSTO Da [...] to start isosorbide and amlodipine. Sent to [facility] per his request. He will see Dr. Huddleston in clinic on 07/16/2024 in [place]. Do you need me to send something to [facility] or did you already? Normal [facility] Documentationon 06-08-2024 Documentation [id number] Juan Miguel Jennings 1950 M Date Provider Department Center 06/08/2024 76740-CEUXIRON OROZCO HVCANTICOAG [place] [facility] Family History Problem Relation Age of Onset Heart disease Mother Heart disease Father Family Status - Relation Status Age at Mother Father Reason for Visit and Comments: PharmD Cardiology Consult [Other] [facility] Orders Onlyon 06-02-2024 Orders Only [id number] Juan Miguel Jennings 1950 M Date Provider Department Center 06/02/2024 Tessa-PAUL CLEMONS [facility] Family History Problem Relation Age of Onset Heart disease Mother Heart disease Father Family Status - Relation Status Age at Mother Father Normal [facility] Reminderson 06-01-2024 Reminders Reminders - From: Bertha Winter To: EU - Recalls Saavedra; Sent: 05/21/2024 12:20:20 EST Show up: [...] ) Other: PROVIDER RELATED REMINDER:_ ( ) 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 ( ) Call Pharmacy ( ) Call Lab ( ) Other: Special Instructions:_ Comments:_ Results in chart for review Normal [facility] ALL CBC WITH AUTO DIFFon BASOPHILS ABSOLUTE [...] (Bld) 0.1 % 0.0 - 0.5 % [facility] Interpretation and review of laboratory results Abnormal [facility] LYMPHOCYTES ABSOLUTE AUTO 1.1 Low [facility] Lymphocytes/100 WBC (Bld) 15 % Low 20.5 - 60.0 % [facility] MCH (RBC) [Entitic mass] 32.9 pg [...] (Bld) 68.1 % 43.0 - 75.0 % [facility] Platelet mean volume (Bld) [Entitic vol] 12.5 fL 9.5 - 13.5 fL [facility] are [facility] EO # 0.3 [facility] [...] JORDAN Brown [facility]ations [facility] (METOPROLOL TARTRATE 100 MG TAB) aspirin [...] [facility] [address] , [place] [address]- Medications What How Much When Instructions Unchanged [...] ??? Ea (more content not included)... Normal [facility] Urology Office/Clinic Noteon 05-21-2024 Urology [...] Has not been able to donate blood, [place] will not let him. Pt will talk to his oncologist in [place] to see if there is another way he can donate blood. Shares he got CBC drawn on 05/08 at [facility], no results on [facility], called lab and they did not [...] onc to facilitate blood donation/get permission for [place]. 2. Elevated PSA (R97.20: Elevated prostate specific [...] [facility] [address], [place] [address]- Additional Instructions: f/u pending HGB/CBC and blood [...] 1 tab(s), (more content not included)... Normal [facility] Comment on above: Result Comment: Elec tronically Signed By: KERI NOLASCO, Topher R\.br\Date and Time Signed: 05/21/24 12:18 EST\.br\Electronically Co-Signed By: Bertha Winter\.br\Date and Time Co-Signed: 05/21/24 12:17 EST ALL LIPID PROFILE (FASTING)o n 05-08-2024 CHOL HDL [facility]ATIO 4.5 [facility] Comment on above: 3.3 - 4.4 LOW RISK 4.4 - 7.1 AVERAGE RISK 7.1 - 11.0 MODERATE RISK >11.0 HIGH RISK Cholesterol [Mass/Vol] 189 mg/dL NINF - 200 mg/dL [facility] Cholesterol in HDL [Mass/Vol] 42 mg/dL 40 - 60 mg/dL [facility] Comment on above: > or =60 mg/dl - LOW CARDIOVASCULAR RISK <40 mg/dl - HIGH CARDIOVASCULAR RISK LDL CHOLESTEROL CALCULATED 124.2 mg/dL [facility] Comment on above: <100 mg/dl OPTIMAL 100-129 mg/dl NEAR OR ABOVE OPTIMAL 130-159 mg/dl BORDERLINE HIGH 160-189 mg/dl HIGH >190 mg/dl VERY HIGH Magnesium [Mass/Vol] 22.8 mg/dL [facility] Triglyceride [Mass/Vol] 114 mg/dL NINF - 150 mg/dL [facility] Office Visiton 05-02-2024 Follow-up visit [id number] Juan Miguel Jennings 1950 M Date Provider Department Center 05/02/2024 PAUL JAIMES [facility] Family History Problem Relation Age of Onset Heart disease Mother Heart disease Father Family Status - Relation Status Age at Mother Father Level of Service:79118 [place] OFFICE/OUTPATIENT ESTABLISHED MOD MDM 30 MIN Reason for Visit and Comments: Coronary Artery Disease [187] Hypertension [311346] Normal [facility] Ambulatory Visit Summaryon 1 06-23-2023 Ambulatory [...] AM EST With: Where: [facility] [address] [address]- Tuesday 10:45 AM EST With: KERI NOLASCO, Topher Ordoñez Where: [facility] [address] [address]- Medications What How Much When Instructions Unchanged [...] you for choosing us for your care. [facility] Ambulatory Visit Summaryon 1 Ambulatory Visit Summary Ambulatory Visit Summary JUAN MIGUEL JENNINGS :1950 Visit Date:03/27/2024 Ambulatory Visit Instructions Your Diagnosis Hypogonadism male Your Care Team Attending Physician - KERI NOLASCO, Topher Ordoñez Primary Care Physician - DAKOTA NOLASCO, JORDAN Brown This Is Your Medications List [facility] Prescription (METOPROLOL TARTRATE 100 MG TAB) aspirin [...] AM EST With: Where: [facility] [address] [address]- Tuesday 10:45 AM EST With: KERI NOLASCO, Topher Ordoñez Where: [facility] [address] [address]- Medications What How Much When Instructions Unchanged [...] choosing us for your care. Normal [facility] CBC W/AUTO DIFFon 02-22-2024 ABS IMMATURE GRAN [...] on above: Result Comment: [facility] [address] [place] [address] CLIA No. [id number] CAP Accreditation No. [id number] [employer]: Shaunna Dee M.D. 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 Normal [facility] Comment on above: Result Comment: Elec tronically Signed By: KERI NOLASCO, Topher Ordoñez\.br\Date and Time Signed: 12/05/23 11:42 EDT\.br\Electronically Co-Signed By: Erica Marin\Date and Time Co-Signed: 12/05/23 11:40 EDT [facility] 11-22-2023 Lab Reports [id number] #1.00TIFF Normal [facility] 11-09-2023 [facility] [id number] #1.00TIFF Normal [facility] CBC W/AUTO DIFFon 10-25-2023 ABS [...] Inc Comment on above: Result Comment: [facility] [address] [place] [address] CLIA No. [id number] CAP Accreditation No. [id number] [employer]: Shaunna Dee M.D. Platelets (Bld) [#/Vol] 141 [...] Inc Chloride [Moles/Vol] 100 mmol/L Normal 95-107 [facility] CO2 [Moles/Vol] 27 mmol/L Normal [...] 9:00 AM EDT Where: [facility] Ambulatory Visit Summaryon 0 09-09-2023 [...] 8:30 AM EDT Where: [facility] 07-15-2023 Lab Reports [id number] #1.00TIFF [facility] 06-28-2023 [facility] [id number] #1.00TIFF [facility] Ambulatory Visit Summaryon 0 06-20-2023 Ambulatory Visit Summary MILAGROSSAURABHJUANGABRIELAJUAN MIGUEL J :1950 Visit Date:06/20/2023 Ambulatory Visit Instructions Your Diagnosis Hypogonadism male Elevated PSA BPH with urinary obstruction Phimosis Urinary urgency Tests Performed Urnls Dip Stick Auto w/o Microscopy POC [id number] Your Care Team Attending Physician - KERI [...] 9:30 AM EST Where: [facility] Patient Educationon 06-20-19 Patient Education [...] Follow these instructions at home: ? Take [id number] and prescription medicines only as told by [...] Document (more content not included)... 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 Normal [facility] Comment on above: Result Comment: Elec tronically Signed By: Topher SAAVEDRA MD\.br\Date and Time Signed: 06/20/23 11:28 EST\.br\Electronically Co-Signed By: Erica Marin\.br\Date and Time Co-Signed: 06/20/23 11:26 EST POINT OF CARE GLUCOSEon 09-05 Glucose [Mass/Vol] 112 mg/dL Critically high 74-106 [facility] Comment on above: Performed By: #### P OCGLUC #### [facility] [address] [place] [address] Dr. Patria Sanders CBC AUTO DIFFon 09-15-2022 BASO # 0.0 103/ul Normal 0.0-0.1 [facility] Comment on above: Performed By: #### C BC #### [facility] [address] [place] [address] Dr. Patria Sanders Basophils/100 WBC (Bld) 0.5 % Normal 0.2-2.0 [facility] Comment on above: Performed By: #### C BC #### [facility] [address] [place] [address] Dr. Patria Sanders EO # 0.3 103/ul Normal 0.0-0.7 [facility] Comment on above: Performed By: #### C BC #### [facility] [address] [place] [address] Dr. Patria Sanders Eosinophils/100 WBC (Bld) 3.2 % Normal 0.9-7.0 [facility] Comment on above: Performed By: #### C BC #### [facility] [address] [place] [address] Dr. Patria Sanders Erythrocyte distribution width (RBC) [Ratio] 14.5 % Normal 11.0-15.0 [facility] Comment on above: Performed By: #### C BC #### [facility] [address] [place] [address] Dr. Patria Sanders Hematocrit (Bld) [Volume fraction] 49.0 % Normal 42.0-54.0 [facility] Comment on above: Performed By: #### C BC #### [facility] [address] [place] [address] Dr. Patria Sanders Hemoglobin (Bld) [Mass/Vol] 16.7 g/dL Normal 14.0-18.0 [facility] Comment on above: Performed By: #### C BC #### [facility] [address] [place] [address] Dr. Patria Sanders IG # 0.03 10e3/ul Normal 0.00-0.03 [facility] Comment on above: Performed By: #### C BC #### [facility] [address] [place] [address] Dr. Patria Sanders IG % 0.4 % Normal 0.0-0.5 [facility] Comment on above: Performed By: #### C BC #### [facility] [address] [place] [address] Dr. Patria Sanders LYMPH # 1.1 103/ul Critically low 1.2-3.8 [facility] Comment on above: Performed By: #### C BC #### [facility] [address] [place] [address] Dr. Patria Sanders Lymphocytes/100 WBC (Bld) 14.5 % Critically low 20.5-60.0 [facility] Comment on above: Performed By: #### C BC #### [facility] [address] [place] [address] Dr. Patria Sanders MANUAL DIFF REQ NO Normal [facility] Comment on above: Performed By: #### C BC #### [facility] [address] [place] [address] Dr. Patria Sanders MCH (RBC) [Entitic mass] 32.6 pg Normal 25.9-34.0 [facility] Comment on above: Performed By: #### C BC #### [facility] [address] [place] [address] Dr. Patria Sanders MCHC (RBC) [Mass/Vol] 34.1 g/dL Normal 29.9-35.2 [facility] Comment on above: Performed By: #### C BC #### [facility] [address] [place] [address] Dr. Patria Sanders MCV (RBC) [Entitic vol] 95.5 fL Critically high 80.0-94.0 [facility] Comment on above: Performed By: #### C BC #### [facility] [address] [place] [address] [address] Patria Sanders MONO # 0.8 103/ul Normal 0.3-0.8 [facility] Comment on above: Performed By: #### C BC #### [facility] [address] [place] [address] [address] Patria Sanders Monocytes/100 WBC (Bld) 9.6 % Normal 1.7-12.0 [facility] Comment on above: Performed By: #### C BC #### [facility] [address] [place] [address] Dr. Patria Sanders NEUT # 5.6 103/ul Normal 1.4-6.5 [facility] Comment on above: Performed By: #### C BC #### [facility] [address] [place] [address] Dr. Patria Sanders Neutrophils/100 WBC (Bld) 71.8 % Normal 43.0-75.0 [facility] Comment on above: Performed By: #### C BC #### [facility] [address] [place] [address] Dr. Patria Sanders Platelet mean volume (Bld) [Entitic vol] 11.6 fL Normal 9.5-13.5 [facility] Comment on above: Performed By: #### C BC #### [facility] [address] [place] [address] Dr. Patria Sanders PLT 154 103/ul Normal 150-450 [facility] Comment on above: Performed By: #### C BC #### [facility] [address] [place] [address] Dr. Patria Sanders RBC 5.13 106/ul Normal 4.70-6.10 [facility] Comment on above: Performed By: #### C BC #### [facility] [address] [place] [address] Dr. Patria Sanders WBC 7.8 103/ul Normal 4.0-11.0 [facility] [facility] Comment on above: Performed By: #### C BC #### [facility] [address] [address] [address] Patria Sanders PROF CHEM 8 (BAS METB)on Anion gap [Moles/Vol] 11.4 mmol/L Normal [facility] Comment on above: Performed By: #### B MP #### [facility] [address] [place] [address] Dr. Patria Sanders Calcium [Mass/Vol] 9.1 mg/dL Normal 8.5-10.1 [facility] Comment on above: Performed By: #### B MP #### [facility] [address] [address] [address] Patria Sanders Chloride [Moles/Vol] 104 mmol/L Normal 98-107 [facility] Comment on above: Performed By: #### B MP #### [facility] [address] [place] [address] Dr. Patria Sanders CO2 [Moles/Vol] 28.7 mmol/L Normal 21.0-32.0 [facility] Comment on above: Performed By: #### B MP #### [facility] [address] [place] [address] Dr. Patria Sanders Creatinine [Mass/Vol] 0.80 mg/dL Normal 0.70-1.30 [facility] Comment on above: Performed By: #### B MP #### [facility] [address] [place] [address] Dr. Patria Sanders EGFR-AF SURINAMESE >60 Normal >=60 [facility] Comment on above: Performed By: #### B MP #### [facility] [address] [place] [address] Dr. Patria Sanders EGFR-NON AF SURINAMESE >60 Normal >=60 [facility] Comment on above: Performed By: #### B MP #### [facility] [address] [place] [address] Dr. Patria Sanders Glucose [Mass/Vol] 101 mg/dL Normal 74-106 [facility] Comment on above: Performed By: #### B MP #### [facility] [address] [place] [address] Dr. Patria Sanders Potassium [Moles/Vol] 4.1 mmol/L Normal 3.5-5.1 [facility] Comment on above: Performed By: #### B MP #### [facility] [address] [place] [address] Dr. Patria Sanders Sodium [Moles/Vol] 140 mmol/L Normal 136-145 [facility] Comment on above: Performed By: #### B MP #### [facility] [address] [place] [address] Dr. Patria Sanders Urea nitrogen [Mass/Vol] 11.0 mg/dL Normal 7.0-18.0 [facility] Comment on above: Performed By: #### B MP #### [facility] [address] [place] [address] Dr. Patria Sanders Urea nitrogen/Creatinine [Mass ratio] 13.8 mg/mg Normal [facility] Comment on above: Performed By: #### B MP #### [facility] [address] [place] [address] Dr. Patria Sanders PROTIMEon 09-15-2022 INR Coag (PPP) [Relative time] 1.02 {INR} Normal [facility] Comment on above: Performed By: #### P TT, PT #### [facility] [address] [place] [address] Dr. Patria Sanders INR GUIDELINES SEE BELOW Normal [facility] Comment on above: Result Comment: SANTO RED INR: 2.0 - 3.0 CONDITIONS NOT LISTED BELOW 2.5 - 3.5 FOR PROSTHETIC HEART VALVE REPLACEMENT 2.5 - 3.5 RECURRENT THROMBOSIS Performed By: #### P TT, PT #### [facility] [address] [place] [address] Dr. Patria Sanders PT Coag (PPP) [Time] 10.8 s Normal 9.0-11.6 [facility] Comment on above: Performed By: #### P TT, PT #### [facility] [address] [place] [address] Dr. Patria Sanders PTTon 09-15-2022 aPTT Coag (Bld) [Time] 32.0 s Normal 22.3-36.2 [facility] Comment on above: Performed By: #### P TT, PT #### [facility] [address] [place] [address] [address] Patria Sanders Covid-19 PCR ([facility])on 01-04 SARS-CoV-2 (COVID-19) RNA NANCY+probe Ql (Unsp spec) Not detected Normal NOT DETECTED [facility] Comment on above: Result Comment: This test is not yet approved or cleared by the [place] FDA. When there are no FDA-approved or cleared tests available, and other criteria are met, FDA can make tests available under an emergency access mechanism called an Emergency Use Authorization (EUA). The EUA for this test is supported by the [employer] Faculty of Health and Human Service's (HHS's) declaration [...] consistent with SARS-CoV-2. Performed By: #### [facility] #### [facility] [address] [place] [address] Patria Sanders Hemoglobin A1Con 09-24-2021 EAG 128.37 Normal [facility] Comment on above: Performed By: #### A 1C #### [facility] [address], [place] [id number] HbA1c (Bld) [Mass fraction] 6.1 % High 4.0-6.0 [facility] Comment on above: Performed By: #### A 1C #### [facility] [address], [place] [id number] Testosteroneon 05-11-2021 TESTOS 314.70 ng/dL Normal 193.00-740.00 [facility] Comment on above: Performed By: #### T EST #### [facility] [address] [place], [place] [id number] Progress Noteon 10-12-2017 HIM IP Note OR Vice President Underwriting Normal [facility] Vital Signs Date Time Vital Sign Value Performing Clinician Facility 09-18-2024 09:24-0400 Body height 198.1 cm Jordan Duncan MD Work Phone: [facility] 09-18-2024 09:24-0400 Body mass index (BMI) [Ratio] 40.1 kg/m2 Jordan Duncan MD Work Phone: [facility] 09-18-2024 09:24-0400 Body weight 157.4 kg Jordan Duncan MD Work Phone: [facility] 09-18-2024 09:24-0400 Diastolic blood pressure 70 mm[Hg] Jordan Duncan MD Work Phone: [facility] 09-18-2024 09:24-0400 Heart rate 63 /min Jordan Duncan MD Work Phone: [facility] 09-18-2024 09:24-0400 SaO2% (BldA) [Mass fraction] 98 % Jordan Duncan MD Work Phone: [facility] 09-18-2024 09:24-0400 Systolic blood pressure 124 mm[Hg] Jordan Duncan MD Work Phone: [facility] 07-25-2024 10:01-0500 Body height 198.1 cm Jordan Duncan MD Work Phone: [facility] 07-25-2024 10:01-0500 Body mass index (BMI) [Ratio] 39.64 kg/m2 Jordan Duncan MD Work Phone: [facility] 07-25-2024 10:01-0500 Body weight 155.58 kg Jordan Duncan MD Work Phone: [facility] 07-25-2024 10:01-0500 Diastolic blood pressure 74 mm[Hg] Jordan Duncan MD Work Phone: [facility] 07-25-2024 10:01-0500 Heart rate 58 /min Jordan Duncan MD Work Phone: [facility] 07-25-2024 10:01-0500 SaO2% (BldA) [Mass fraction] 98 % Jordan Duncan MD Work Phone: [facility] 07-25-2024 10:01-0500 Systolic blood pressure 120 mm[Hg] Jordan Duncan MD Work Phone: [facility] 07-05-2024 13:45-0500 Diastolic blood pressure 72 mm[Hg] Mthz Schedule [facility] 07-05-2024 13:45-0500 Heart rate 77 /min Mthz Schedule [facility] 07-05-2024 13:45-0500 Systolic blood pressure 135 mm[Hg] Mthz Schedule [facility] 07-05-2024 13:16-0500 Body temperature 97.5 [degF] [facility] [employer] 07-05-2024 13:16-0500 Respiratory rate 18 /min [facility] 05-21-2024 10:44-0500 Blood Pressure Location Topher SAAVEDRA [facility] 05-21-2024 10:44-0500 Body temperature 98.6 [degF] Topher SAAVEDRA [facility] 05-21-2024 10:44-0500 Diastolic blood pressure 79 mm[Hg] Topher SAAVEDRA [facility] 05-21-2024 10:44-0500 Heart rate 58 /min Topher SAAVEDRA [facility] 05-21-2024 10:44-0500 Respiratory rate 16 /min Topher SAAVEDRA [facility] 05-21-2024 10:44-0500 Systolic blood pressure 133 mm[Hg] Topher SAAVEDRA [facility] 05-15-2024 10:21-0500 Body height 198.1 cm Brodygarrick Ibrahim DPM Work Phone: [facility] 05-15-2024 10:21-0500 Body mass index (BMI) [Ratio] 40.45 kg/m2 Brodygarrick Ibrahim DPM Work Phone: [facility] 05-15-2024 10:21-0500 Body weight 158.76 kg Brody Rusher DPM Work Phone: [facility] 04-23-2024 10:41-0500 Body height 198.1 cm Brody Rusher DPM Work Phone: [facility] 04-23-2024 10:41-0500 Body mass index (BMI) [Ratio] 40.45 kg/m2 Brody Rusher DPM Work Phone: [facility] 04-23-2024 10:41-0500 Body weight 158.76 kg Brody Rusher DPM Work Phone: [facility] 03-29-2024 12:49-0400 Body height 198.1 cm Brody Rusher DPM Work Phone: [facility] 03-29-2024 12:49-0400 Body mass index (BMI) [Ratio] 40.45 kg/m2 Brody Rusher DPM Work Phone: [facility] 03-29-2024 12:49-0400 Body weight 158.76 kg Brody Rusher DPM Work Phone: [facility] 03-27-2024 14:00-0400 Body height 198.1 cm Jordan Duncan MD Work Phone: [facility] 03-27-2024 14:00-0400 Body mass index (BMI) [Ratio] 40.45 kg/m2 Jordan Duncan MD Work Phone: [facility] 03-27-2024 14:00-0400 Body weight 158.76 kg Jordan Duncan MD Work Phone: [facility] 03-27-2024 14:00-0400 Diastolic blood pressure 76 mm[Hg] Jordan Duncan MD Work Phone: [facility] 03-27-2024 14:00-0400 Heart rate 71 /min Joradn Duncan MD Work Phone: [facility] 03-27-2024 14:00-0400 SaO2% (BldA) [Mass fraction] 97 % Jordan Duncan MD Work Phone: [facility] 03-27-2024 14:00-0400 Systolic blood pressure 128 mm[Hg] Jordan Duncan MD Work Phone: [facility] 03-13-2024 09:41-0400 Body height 198.1 cm Brody Ibrahim DPM Work Phone: [facility] 03-13-2024 09:41-0400 Body mass index (BMI) [Ratio] 40.45 kg/m2 Brody Ibrahim DPM Work Phone: [facility] 03-13-2024 09:41-0400 Body weight 158.76 kg Brody Ibrahim DPM Work Phone: [facility] 12-05-2023 10:38-0400 Blood Pressure Location Topher SAAVEDRA [facility] 12-05-2023 10:38-0400 Body temperature 98.6 [degF] Topher SAAVEDRA [facility] 12-05-2023 10:38-0400 Diastolic blood pressure 86 mm[Hg] Topher SAAVEDRA [facility] 12-05-2023 10:38-0400 Heart rate 69 /min Topher SAAVEDRA [facility] 12-05-2023 10:38-0400 Respiratory rate 16 /min Topher SAAVEDRA [facility] 12-05-2023 10:38-0400 Systolic blood pressure 136 mm[Hg] Topher SAAVEDRA [facility] 07-19-2023 10:37-0500 Body height 198.1 cm Brody Young DPM Work Phone: [facility] 07-19-2023 10:37-0500 Body mass index (BMI) [Ratio] 39.87 kg/m2 Brody Young DPM Work Phone: [facility] 07-19-2023 10:37-0500 Body weight 156.49 kg Brody Alexandria DPM Work Phone: [facility] 06-20-2023 10:33-0500 Blood Pressure Location Topher SAAVEDRA [facility] 06-20-2023 10:33-0500 Diastolic blood pressure 86 mm[Hg] Topher SAAVEDRA [facility] 06-20-2023 10:33-0500 Heart rate 70 /min Topher SAAVEDRA [facility] 06-20-2023 10:33-0500 Respiratory rate 16 /min Topher SAAVEDRA [facility] 06-20-2023 10:33-0500 Systolic blood pressure 139 mm[Hg] Topher SAAVEDRA [facility] 11-05-2022 10:12-0400 Blood Pressure Location Topher SAAVEDRA [facility] 11-05-2022 10:12-0400 Diastolic blood pressure 78 mm[Hg] Topher SAAVEDRA [facility] 11-05-2022 10:12-0400 Heart rate 68 /min Topherpeter SAAVEDRA [facility] 11-05-2022 10:12-0400 Respiratory rate 16 /min Topher SAAVEDRA [facility] 11-05-2022 10:12-0400 Systolic blood pressure 130 mm[Hg] Topherpeter SAAVEDRA [facility] 11-03-2022 14:34-0400 Body temperature 97.5 [degF] Mthz Schedule [facility] 11-03-2022 14:34-0400 Diastolic blood pressure 77 mm[Hg] Mthz Schedule [facility] 11-03-2022 14:34-0400 Heart rate 72 /min [facility] 11-03-2022 14:34-0400 Respiratory rate 18 /min [facility] Schedule [facility] 11-03-2022 14:34-0400 Systolic blood pressure 140 mm[Hg] Mthz Schedule [facility] 06-18-2022 08:55-0500 Blood Pressure Location Topher SAAVEDRA [facility] 06-18-2022 08:55-0500 Diastolic blood pressure 82 mm[Hg] Topher SAAVEDRA [facility] 06-18-2022 08:55-0500 Heart rate 80 /min Topher SAAVEDRA [facility] 06-18-2022 08:55-0500 Respiratory rate 16 /min Topher SAAVEDRA [facility] 06-18-2022 08:55-0500 Systolic blood pressure 132 mm[Hg] Topher SAAVEDRA [facility] 05-17-2022 09:43-0500 Blood Pressure Location Topher SAAVEDRA [facility] 05-17-2022 09:43-0500 Diastolic blood pressure 92 mm[Hg] Topher SAAVEDRA [facility] 05-17-2022 09:43-0500 Heart rate 63 /min Topher SAAVEDRA [facility] 05-17-2022 09:43-0500 Systolic blood pressure 143 mm[Hg] Topher SAAVEDRA [facility] 02-01-2022 09:48-0400 Blood Pressure Location Topherpeter SAAVEDRA [facility] 02-01-2022 09:48-0400 Diastolic blood pressure 66 mm[Hg] Topher SAAVEDRA [facility] 02-01-2022 09:48-0400 Heart rate 84 /min Topher SAAVEDRA [facility] 02-01-2022 09:48-0400 Respiratory rate 16 /min Topher SAAVEDRA [facility] 02-01-2022 09:48-0400 Systolic blood pressure 98 mm[Hg] Topher SAAVEDRA [facility] 01-28-2022 13:48-0400 Diastolic blood pressure 76 mm[Hg] [facility] 01-28-2022 13:48-0400 Heart rate 56 /min [facility] Schedule [facility] 01-28-2022 13:48-0400 Respiratory rate 18 /min [facility] Schedule [facility] 01-28-2022 13:48-0400 Systolic blood pressure 135 mm[Hg] [facility] Schedule KITTY QUIROZ [facility] [employer] 01-28-2022 13:25-0400 Body temperature 97.39 [degF] [facility] Schedule KITTY QUIROZ [employer] 10-22-2020 12:25-0400 Body temperature 97.81 [degF] [facility] Work Phone: 10-22-2020 12:25-0400 Heart rate 67 /min [facility] Work Phone: 07-27-2019 08:03-0500 Body Temperature 96.3 [degF] Mthz Schedule [employer], [place] 07-27-2019 08:03-0500 BP Diastolic 80 mm[Hg] Mthz Schedule [place] , [place] 07-27-2019 08:03-0500 BP Systolic 129 mm[Hg] [facility] [place] , [place] 07-27-2019 08:03-0500 Pulse (Heart Rate) 63 /min [facility] [place] 07-27-2019 08:03-0500 Respiratory Rate 20 /min [facility] [employer] 03-13-2019 08:02-0400 Body Temperature 96.69 [degF] [facility] [place] [facility] [place] 03-13-2019 08:02-0400 BP Diastolic 83 mm[Hg] [facility] [place] 03-13-2019 08:02-0400 BP Systolic 162 mm[Hg] [facility] [place] [facility] [place] 03-13-2019 08:02-0400 Pulse (Heart Rate) 74 /min [facility] [employer] [place] 03-13-2019 08:02-0400 Respiratory Rate 20 /min [facility] [employer] 01-12-2019 08:03-0400 Body Temperature 96.91 [degF] Mthz Schedule [employer], [place] 01-12-2019 08:03-0400 BP Diastolic 87 mm[Hg] [facility] [place] [facility] [place] 01-12-2019 08:03-0400 BP Systolic 152 mm[Hg] [facility] [place] , [place] 01-12-2019 08:03-0400 Pulse (Heart Rate) 63 /min [facility] [place], [place] 01-12-2019 08:03-0400 Respiratory Rate 20 /min [facility] [place] Encounters Encounter Date Encounter Type Care Provider Facility Start: 01-01-2025 End: 01-01-2025 Clinisync Result Encounter Generic External Data Provider [facility] External Department Unsolicited Start: 01-01-2025 End: 01-01-2025 Clinisync Result Encounter Generic External Data Provider [facility] External Department Unsolicited Start: 01-01-2025 End: 01-01-2025 ambulatory Enedina Sch[facility] Work Phone: Start: 01-01-2025 End: 01-01-2025 [facility]ed [facility] Start: 12-28-2024 End: 12-28-2024 Clinisync Result Encounter Generic External Data Provider [facility] External Department Unsolicited Start: 12-28-2024 End: 12-28-2024 Clinisync Result Encounter Generic External Data Provider [facility] External Department Unsolicited Start: 12-26-2024 End: 12-26-2024 Clinisync Result Encounter Generic External Data Provider [facility] External Department Unsolicited Start: 12-26-2024 End: 12-26-2024 Clinisync Result Encounter Generic External Data Provider [facility] External Department Unsolicited Start: 12-21-2024 End: 12-21-2024 ambulatory RACHEL [facility] Start: 12-21-2024 End: 12-21-2024 Encounter for other preprocedural examination RACHEL [facility] Start: 12-03-2024 End: 12-03-2024 Telephone encounter Jordan [...] microalbuminuria, without long-term current use of insulin ([facility]); Type 2 diabetes mellitus with foot ulcer (CODE) ([facility]); Non-pressure chronic ulcer of other part of unspecified foot with unspecified severity ([facility]/HCC); 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); Partial nontraumatic amputation of foot, left ([facility]/HCC); Atherosclerosis of [place] coronary artery of [place] heart without angina pectoris ([facility]/HCC); History of myocardial infarction ([facility]); Mixed hyperlipidemia ([facility]); Adverse reaction to statin medication; Primary open angle glaucoma of both eyes, unspecified glaucoma stage ([facility]) Start: 07-25-2024 End: 07-25-2024 ambulatory JORDAN DUNCAN Not Available Start: 07-16-2024 End: 07-16-2024 ambulatory [facility] Start: 07-05-2024 End: 07-05-2024 ambulatory WILLI BOLIVARBRIAN [facility] Start: 07-05-2024 End: 07-05-2024 Subsequent hospital visit by physician [facility] 1 [facility] Comment on above: Polycythemia (Primar y Dx) Start: 06-18-2024 End: 06-18-2024 Telephone encounter Jordan Duncan MD Work Phone: [facility] Start: 05-22-2024 End: 05-22-2024 Clinisync Result Encounter Generic External Data Provider [facility] External Department Unsolicited Start: 05-22-2024 End: 05-22-2024 Clinisync Result Encounter Generic External Data Provider [facility] External Department Unsolicited Start: 05-21-2024 End: 05-21-2024 ambulatory Topher SAAVEDRA Facility:[facility] Start: 05-21-2024 End: 05-21-2024 Patient encounter procedure Topher SAAVEDRA [facility] Start: 05-15-2024 End: 05-15-2024 ambulatory BRODY IBRAHIM Not Available Start: 05-15-2024 End: 05-15-2024 Postop follow up visit related to original px Brody Ibrahim DPM Work Phone: [facility] Comment on above: Diabetic polyneuropa [...] Start: 05-08-2024 ambulatory Topher SAAVEDRA Facili ty:[facility] Start: 05-02-2024 End: 05-02-2024 ambulatory [facility] Start: 04-23-2024 End: 04-23-2024 Bamboo flowsheet Brody Ibraihm DPM Work Phone: [facility] Start: 04-23-2024 End: 04-23-2024 Bamboo flowsheet Brody Ibrahim DPM Work Phone: [facility] Start: 04-23-2024 End: 04-23-2024 ambulatory Topher SAAVEDRA Facility:[facility] Start: 04-23-2024 End: 04-23-2024 Patient encounter procedure Topher SAAVEDRA [facility] Comment on above: Diabetic polyneuropa thy associated with type 2 diabetes mellitus (CMS/HCC) (Primary Dx); Nontraumatic amputation of foot, left (CMS/HCC); Nontraumatic amputation of foot, right (CMS/HCC) Start: 04-09-2024 End: 04-09-2024 Telephone encounter Brody Ibrhaim DPM Work Phone: [facility] Comment on above: Advice Only (orthoti cs) Start: 03-29-2024 End: 03-29-2024 Bamboo flowsheet Brody Ibrahim DPM Work Phone: [facility] Start: 03-29-2024 End: 03-29-2024 Bamboo flowsheet Brody Ibrahim DPM Work Phone: [facility] Start: 03-29-2024 End: 03-29-2024 Postop follow up visit related to original px Brody Ibrahim DPM Work Phone: [facility] Comment on above: Diabetic polyneuropa [...] Start: 03-27-2024 End: 03-27-2024 ambulatory Topher SAAVEDRA Facility:[facility] Start: 03-27-2024 End: 03-27-2024 Patient encounter procedure Topher SAAVEDRA [facility] Start: 03-13-2024 End: 03-13-2024 Bamboo flowsheet Brody Ibrahim DPM Work Phone: [facility] Start: 03-13-2024 End: 03-13-2024 Bamboo flowsheet Brody Ibrahim DPM Work Phone: [facility] Start: 03-13-2024 End: 03-13-2024 Patient encounter procedure Brody Ibrahim DPM Work Phone: [facility] Comment on above: Acquired keratoderma (Primary Dx); Diabetic polyneuropathy associated with type 2 diabetes mellitus (CMS/HCC); Nontraumatic amputation of foot, left (CMS/HCC); Nontraumatic amputation of foot, right (CMS/HCC) Start: 03-13-2024 End: 03-13-2024 ambulatory BRODY IBRAHIM Not Available Start: 03-01-2024 End: 03-01-2024 ambulatory JORDAN DUNCAN [facility] Start: 02-27-2024 End: 02-27-2024 ambulatory Topher SAAVEDRA Facility:[facility] Start: 02-27-2024 End: 02-27-2024 Patient encounter procedure Topher SAAVEDRA [facility] Start: 01-31-2024 End: 01-31-2024 ambulatory Fernanda Solomon Facility:[facility] Start: 01-31-2024 End: 01-31-2024 Patient encounter procedure [facility] Start: 01-10-2024 End: 01-10-2024 ambulatory BRODY IBRAHIM Not Available Start: 01-03-2024 End: 01-03-2024 ambulatory Topher SAAVEDRA Facility:[facility] Start: 12-06-2023 End: 12-06-2023 ambulatory BRODY IBRAHIM Not Available Start: 12-05-2023 End: 12-05-2023 ambulatory Topher SAAVEDRA Facility:[facility] [place] Start: 12-05-2023 End: 12-05-2023 Patient encounter procedure Topher SAAVEDRA [facility] Start: 11-09-2023 End: 11-09-2023 ambulatory JORDAN DUNCAN [facility] Start: 11-07-2023 End: 11-07-2023 ambulatory Topher SAAVEDRA Facility:[facility] [place] Start: 11-07-2023 End: 11-07-2023 Patient encounter procedure [facility] SAAVEDRA [facility] Start: 10-27-2023 End: 10-27-2023 ambulatory JORDAN DUNCAN Not Available Start: 10-12-2023 End: 10-12-2023 ambulatory JORDAN DUNCAN Not Available Start: 10-07-2023 End: 10-07-2023 ambulatory Topher SAAVEDRA Facility:[facility] [place] Start: 10-07-2023 End: 10-07-2023 Patient encounter procedure Topher SAAVEDRA [facility] Start: 09-27-2023 End: 09-27-2023 ambulatory BRODY IBRAHIM Not Available Start: 09-09-2023 End: 09-09-2023 ambulatory Topher SAAVEDRA Facility:[facility] [place] Start: 09-09-2023 End: 09-09-2023 Patient encounter procedure Topher SAAVEDRA [facility] Start: 08-15-2023 End: 08-15-2023 ambulatory Topher SAAVEDRA Facility:[facility] Start: 08-15-2023 End: 08-15-2023 Patient encounter procedure Topher SAAVEDRA [facility] Start: 07-19-2023 Bamboo flowsheet Brody Tyler er DPM Work Phone: [facility] Start: 07-19-2023 Bamboo flowsheet Brody Tyler er DPM Work Phone: [facility] Start: 07-19-2023 End: 07-19-2023 Patient encounter procedure Brody Ibrahim DPM Work Phone: [facility] Comment on above: Dermatophytosis of n ail (Primary Dx); Dystrophic nail; Diabetic polyneuropathy associated with type 2 diabetes mellitus (CMS/HCC); Nontraumatic amputation of foot, right (CMS/HCC); Nontraumatic amputation of foot, left (CMS/HCC); Acquired keratoderma Start: 07-18-2023 End: 07-18-2023 ambulatory Topher SAAVEDRA Facility:[facility] [place] Start: 07-18-2023 End: 07-18-2023 Patient encounter procedure [facility] SAAVEDRA [facility] Start: 06-20-2023 End: 06-20-2023 ambulatory [facility]VEDRA [facility] [place] Start: 06-20-2023 End: 06-20-2023 Patient encounter procedure Topher SAAVEDRA [facility] Start: 05-09-2023 End: 05-09-2023 Patient encounter procedure Topher SAAVEDRA [facility] Start: 04-04-2023 End: 04-04-2023 Patient encounter procedure Topher SAAVEDRA [facility] [place] Start: 02-08-2023 End: 02-08-2023 Patient encounter procedure JORDAN DUNCAN [facility] [employer] Start: 01-03-2023 End: 01-03-2023 Patient encounter procedure Topher SAAVEDRA [facility] Start: 12-03-2022 End: 12-03-2022 Patient encounter procedure Topher SAAVEDRA [facility] Start: 11-05-2022 End: 11-05-2022 Patient encounter procedure Topher SAAVEDRA [facility] Start: 11-03-2022 End: 11-03-2022 [facility] Comment on above: Polycythemia (Primar y Dx) Start: 10-25-2022 End: 10-26-2022 ambulatory ARNOLD PEOPLES Facility:[facility] Start: 10-05-2022 End: 10-06-[address] JORDAN DUNCAN . Facility:[facility] Start: 10-05-2022 End: 10-05-2022 Patient encounter procedure [facility] SAAVEDRA [facility] Start: 09-30-2022 End: 09-30-[address] TOPHER SAAVEDRA . Facility:[facility] Start: 09-27-2022 End: 09-28-2022 ambulatory ARNOLD PEOPLES Facility:[facility] Start: 09-20-2022 End: 09-21-2022 ambulatory [facility] Facility:[facility] Start: 09-20-2022 Encounter for preprocedural cardiovascular examination DR TOPHER SAAVEDRA . [facility] Start: 09-20-2022 Encounter for preprocedural laboratory examination DR TOPHER SAAVEDRA . [facility] Start: 09-20-2022 Encounter for preprocedural respiratory examination DR TOPHER SAAVEDRA . [facility] Start: 09-15-2022 End: 09-16-[address] TOPHER SAAVEDRA . Facility:[facility] Start: 09-15-2022 End: 09-16-2022 Encounter for preprocedural laboratory examination DR TOPHER SAAVEDRA . Facility:[facility] Start: 09-06-2022 End: 09-06-2022 Patient encounter procedure Topher SAAVEDRA [facility] Start: 06-18-2022 End: 06-18-2022 Patient encounter procedure Topher SAAVEDRA [facility] Start: 05-20-2022 End: 05-21-2022 ambulatory [facility] Facility:[facility] Start: 05-17-2022 End: 05-17-2022 Patient encounter procedure Topher SAAVEDRA [facility] Start: 04-21-2022 End: 04-22-2022 ambulatory [facility] Facility:[facility] Start: 04-21-2022 End: 04-21-2022 Patient encounter procedure Mandy Schaefer [facility] Start: 04-09-2022 End: 04-10-2022 ambulatory [facility] Facility:[facility] Start: 03-31-2022 End: 03-31-2022 Patient encounter procedure Mandy Schaefer [facility] Start: 03-22-2022 End: 03-23-2022 ambulatory [facility] Facility:[facility] Start: 03-03-2022 End: 03-03-2022 Patient encounter procedure Mandy Schaefer [facility] Start: 02-01-2022 End: 02-01-2022 Patient encounter procedure Topher SAAVEDRA [facility] Start: 01-28-2022 End: 01-28-2022 [facility] Comment on above: Polycythemia (Primar y Dx) Start: 01-18-2022 End: 01-18-[address] JORDAN DUNCAN . Facility: Start: 01-06-2022 End: 01-07-2022 ambulatory [facility] Facility:[facility] Start: 12-21-2021 End: 12-21-2021 Patient encounter procedure Topher SAAVEDRA [facility] Start: 11-23-2021 End: 11-23-2021 Patient encounter procedure [facility]VEDRA [facility] Start: 10-26-2021 End: 10-26-2021 Patient encounter procedure [facility]VEDRA [facility] Start: 09-28-2021 End: 09-28-2021 Patient encounter procedure Topher SAAVEDRA [facility] Start: 08-31-2021 End: 08-31-2021 Patient encounter procedure Topher SAAVEDRA [facility] Start: 10-22-2020 End: 10-22-2020 Subsequent hospital visit by physician [facility] Med Onc Room 9 Schedule [facility] Comment on above: Polycythemia (Primar y Dx) Start: 07-27-2019 End: 07-27-2019 Subsequent hospital visit by physician [facility] Med Onc Room 9 Schedule [facility] Comment on above: Polycythemia (Primar y Dx) Start: 03-13-2019 End: 03-13-2019 Subsequent hospital visit by physician [facility] Med Onc Room 9 Schedule [facility] Comment on above: Polycythemia (Primar y Dx) Start: 01-12-2019 End: 01-12-2019 Subsequent hospital visit by physician [facility] Med Onc Room 9 Schedule [facility] Start: 02-16-2018 End: 02-17-2018 Patient encounter DEFAULT PHYSICIAN Facility:[facility] Procedures Date Procedure Procedure Detail Performing Clinician Start: 01-01-2025 XR FOOT RT MIN 3V Gener ic External Data Provider Start: 12-28-2024 XR CHEST 2V Generic Ex ternal Data Provider Start: 12-28-2024 ALL CBC WITH AUTO DIFF Generic External Data Provider Start: 12-26-2024 ALL LIPID PROFILE (FASTING) Generic External Data Provider Start: 12-26-2024 [facility] LIVER PANEL Generi c External Data [...] disease S/P JORY - LCX & RCA ([id number]) [facility] Schedule BACK SURGERY Topher SAAVEDRA Placement of stent [facility] Agustin SAAVEDRA RIGHT VEIN REMOVED F ROM LEG Topher SAAVEDRA Plan of Treatment Date Care Activity Detail Author Start: 12-17-2030 Screening for malignant neoplasm of colon [facility] Start: 09-29-2025 Glaucoma screening Diabetes: Retinopathy Screening [facility] Start: 09-18-2025 Urine screening for protein Diabetes: Urine Protein Screening [facility] Start: 07-25-2025 Medicare Annual Wellness (AWV) Medicare Annual Wellness (AWV) [facility] Start: 02-21-2025 GFR test (Diabetes, CKD 3-4, OR last GFR 15-59) GFR test (Diabetes, CKD 3-4, OR last GFR 15-59) [facility] Start: 02-04-2025 Influenza vaccination Influenza Vaccine (#1) [facility] Start: 12-12-2024 Hemoglobin A1c measurement Diabetes: Hemoglobin A1C [facility] Start: 10-26-2024 End: 10-26-2024 Patient encounter procedure 10/26/2024 1:00 PM EDT Appointment [facility] [address] [phone] phlebotomy [facility] Comment on above: phlebotomy Start: 10-17-2024 End: 10-17-2024 Patient encounter procedure 10/17/2024 1:00 PM EDT Office Visit [facility] [address] [id number] Newton Stevenson MD [address] [place] [address] F/U polycythemia, anal cancer [facility] Comment on above: F/U polycythemia, anal cancer Start: 10-04-2024 Urine screening for protein Diabetes: Urine Protein Screening [facility] Start: 09-18-2024 End: 09-18-2024 Patient encounter procedure [facility] Comment on above: Essential hypertension ([facility]); Microalbuminuria; Mixed hyperlipidemia ([facility]); Type 2 diabetes mellitus with diabetic microalbuminuria, without long-term current use of insulin ([facility]); Type 2 diabetes mellitus with diabetic polyneuropathy, without long-term current use of insulin ([facility]) Start: 08-25-2024 End: 03-27-2025 Comprehensive metabolic 2000 panel - Serum or Plasma Comprehensive metabolic panel Lab Routine Type 2 diabetes mellitus with diabetic polyneuropathy, without long-term current use of insulin ([facility]) Essential hypertension ([facility]) Expected: 08/25/2024, Expires: 03/27/2025 [facility] Work Phone: Comment on above: Expected: 08/25/2024, Expires: Start: 08-25-2024 End: 03-27-2025 Hemoglobin A1c/Hemoglobin.total in Blood Hemoglobin A1c Lab Routine Type 2 diabetes mellitus with diabetic polyneuropathy, without long-term current use of insulin ([facility]) Expected: 08/25/2024, Expires: 03/27/2025 [facility] Comment on above: Expected: 08/25/2024, Expires: Start: 08-25-2024 End: 03-27-2025 Lipid 1996 panel - Serum or Plasma Lipid panel Lab Routine Mixed hyperlipidemia ([facility]/H[facility]) Expected: 08/25/2024, Expires: 03/27/2025 [facility] Comment on above: Expected: 08/25/2024, Expires: Start: 07-25-2024 End: 07-25-2024 Patient encounter procedure 07/25/2024 11:00 AM EST Office Visit [facility] [address] [facility] [address] [place] [address] Jordan Duncan MD [address] [facility] [address] [place] [address] Encounter for Medicare annual wellness exam; Advance directive in chart; Encounter for screening for other disorder; Screening for alcohol problem; Morbid (severe) obesity due to excess calories ([facility]); Body mass index (BMI) 40.0-44.9, adult ([facility]) [facility] Comment on above: Encounter for Medicare annual wellness e xam; Advance directive in chart; Encounter for screening for other disorder; Screening for alcohol problem; Morbid (severe) obesity due to excess calories ([facility]); Body mass index (BMI) 40.0-44.9, adult ([facility]) Start: 06-21-2024 Hemoglobin A1c measurement Diabetes: Hemoglobin A1C [facility] Start: 05-17-2024 Medicare Annual Wellness (AWV) Medicare Annual Wellness (AWV) [facility] Start: 05-15-2024 End: 05-15-2024 Patient encounter procedure 05/15/2024 10:15 AM EST Office Visit [facility] [address] [place] [address] Brody Ibrahim Arin [address] [facility] [place] [address] [facility] Start: 04-23-2024 End: 04-23-2024 Patient encounter procedure 04/23/2024 11:00 AM EST Office Visit [facility] [address] [place] [address] Brody Ibrahim DPM [address] [facility] [place] [address] [facility] Start: 04-09-2024 End: 04-09-2024 Patient encounter procedure 04/09/2024 9:30 AM EST Office Visit [facility] [address] [address] [place] [address] Jordan Duncan MD [address] [facility] [place] [address] (Fax) [facility] Start: 03-29-2024 End: 03-29-2024 Patient encounter procedure 03/29/2024 1:00 PM EDT Office Visit [facility] [address] [facility] [facility] [place] [phone] Brody Ibrahim DPM [address] [place], [place] [phone] Arrived [facility] Comment on above: Arrived Start: 03-27-2024 End: 03-27-2024 Patient encounter procedure 03/27/2024 2:00 PM EDT Office Visit [facility] [address] [address] Jordan Duncan MD [address] [place] [address] Type 2 diabetes mellitus with diabetic polyneuropathy, [...] procedure 03/13/2024 9:45 AM EDT Office Visit [facility] [address] [facility] [place] [id number] Brody Ibrahim DPM [address] [place], [place] [phone] Arrived [facility] Comment on above: Arrived Start: 02-05-2024 COVID-19 Vaccine () COVID-19 Vaccine () [facility] Start: 02-05-2024 Influenza vaccination Influenza Vaccine (#1) [facility] Start: 01-05-2024 Hemoglobin A1c measurement Diabetes: Hemoglobin A1C [facility] Start: 11-26-2023 Glaucoma screening Diabetes: Retinopathy Screening [facility] Start: 10-29-2023 GFR test (Diabetes, CKD 3-4, OR last GFR 15-59) GFR test (Diabetes, CKD 3-4, OR last GFR 15-59) [facility] Start: 10-26-2023 End: 10-26-2023 Patient encounter procedure 10/26/2023 Office Visit Oncology Newton Stevenson MD [address] [place] [address] [facility] Start: 10-12-2023 End: 10-12-2023 Patient encounter procedure 10/12/2023 9:30 AM EDT Office Visit [facility] [address] [place] [address] Jordan Duncan MD [address] [place] [address] [facility] Start: 09-27-2023 End: 09-27-2023 Patient encounter procedure 09/27/2023 11:00 AM EDT Procedure Visit [facility] [address] [facility] [place] [phone] Brody Ibrahim DPM [address] [facility] [place] [address] [facility] Start: 07-14-2023 Hemoglobin A1c measurement Diabetes: Hemoglobin A1C [facility] Start: 05-02-2023 Annual Wellness Visit (Medicare) Annual Wellness Visit (Medicare) [facility] Start: 10-20-2022 End: 10-20-2022 Patient encounter procedure 10/20/2022 Office Visit Oncology Newton Stevenson MD [address] [place] [address] [facility] Start: 09-24-2022 Hemoglobin A1c measurement A1C test (Diabetic or Prediabetic) [facility] [employer] Start: 02-04-2022 Influenza vaccination Flu vaccine (#1) [facility] Start: 11-11-2021 Urine screening for protein [facility] Start: 10-21-2021 End: 10-21-2021 Patient encounter procedure 10/21/2021 Office Visit Oncology Newton Stevenson MD [address] [place] [address] [facility] Start: 10-16-2021 COVID-19 Vaccine (4 - Booster for Pfizer series) COVID-19 Vaccine (4 - Booster for Pfizer series) [facility] Start: 10-14-2021 Lipid panel Lipids [facility] Start: 10-24-2019 End: 10-24-2019 Office Visit [facility] Start: 07-31-2019 End: 07-31-2019 Appointment 07/31/2019 [facility] Start: 04-30-2019 End: 04-30-2019 Appointment 04/30/2019 Appointment Infusion Therapy [facility] Start: 02-04-2019 Influenza vaccination Flu vaccine (#1) [place], [place] Start: 11-26-2018 Annual Wellness Visit (AWV) Annual Wellness Visit (AWV) [facility] Start: 08-17-2017 Creatinine measurement Creatinine monitoring [facility] [employer] Work Phone: Start: 08-17-2017 Creatinine monitoring Creatinine monitoring [place], [place] Start: 08-17-2017 Potassium monitoring Potassium monitoring [place], [place] Start: 08-04-2017 A1C test (Diabetic or Prediabetic) A1C test (Diabetic or Prediabetic) [place] Start: 08-04-2017 Hemoglobin A1c measurement A1C test (Diabetic or Prediabetic) [facility] Start: 02-10-2017 Abdominal aortic aneurysm screening AAA screen [facility] Start: 02-10-2017 Pneumococcal 65+ years Vaccine (1 of 2 - PCV13) Pneumococcal 65+ years Vaccine (1 of 2 - PCV13) [place] Start: 01-29-2017 Shingles Vaccine (2 of 3) Shingles Vaccine (2 of 3) [facility] Start: 02-10-2015 Annual Wellness Visit (AWV) Annual Wellness Visit (AWV) [place], [place] Start: 2012 Respiratory Syncytial Virus (RSV) or age 60 yrs+ (1 - Risk 60-74 years 1-dose series) Respiratory Syncytial Virus (RSV) or age 60 yrs+ (1 - Risk 60-74 years 1-dose series) [facility] Start: 02-10-2002 Colon cancer screen colonoscopy Colon cancer screen colonoscopy [place], [place] Start: 02-10-2002 Screening for malignant neoplasm of colon Colon cancer screen colonoscopy [facility] Work Phone: Start: 02-10-2002 Shingles Vaccine (1 of 2) Shingles Vaccine (1 of 2) [place], [place] Start: 02-10-1997 Screening for malignant neoplasm of colon [facility] Start: 02-10-1971 DTaP/Tdap/Td vaccine (1 - Tdap) DTaP/Tdap/Td vaccine (1 - Tdap) [facility] Start: 02-10-1971 Hepatitis B vaccine (1 of 3 - Risk 3-dose series) Hepatitis B vaccine (1 of 3 - Risk 3-dose series) [place] Start: 02-10-1970 Diabetic microalbuminuria test Diabetic microalbuminuria test [place] Start: 02-10-1970 Diabetic retinal exam Diabetic retinal exam [facility] Start: 02-10-1970 Glaucoma screening Diabetic retinal exam [facility] Start: 02-10-1970 Hepatitis C screening Hepatitis C screen [facility] Start: 02-10-1970 Urine screening for protein Diabetic Alb to Cr ratio (uACR) test [facility] Start: 1964 Depression Screen Depression Screen [facility] Start: 02-10-1963 DTaP/Tdap/Td vaccine (1 - Tdap) DTaP/Tdap/Td vaccine (1 - Tdap) [place] Start: 02-10-1962 [object Object] Diabetic foot exam [place] Start: 02-10-1962 Diabetic foot examination [facility] Start: 02-10-1962 Diabetic retinal exam Diabetic retinal exam [facility] Start: 02-10-1962 [facility]id [facility] Start: 02-10-1962 Lipid screen Lipid screen [facility] Start: 1952 Annual Wellness Visit (AWV) Annual Wellness Visit (AWV) [facility] Start: 1952 Hepatitis C screen Hepatitis C screen [place], [place] Start: 1952 Hepatitis C screening Hepatitis C screen [facility] [employer] Phone: Start: 1952 Screening for malignant neoplasm of colon [facility] End: 07-05-2024 Phlebotomy therapeutic Phlebotomy therapeutic Procedures Routine One Time for 1 Occurrences starting 07/05/2024 until 07/05/2024 [facility] Work Phone: Comment on above: One Time for 1 Occurrences starting 06/08 until 07/05/2024 Immunizations Immunization Date Immunization Notes Care Provider [facility] 03-28-2024 influenza, seasonal, injectable Brody Ibrahim DPM Work Phone: [facility] 03-28-2024 Seasonal trivalent influenza vaccine, adjuvanted, preservative free Brody Ibrahim DPM Work Phone: [facility] 03-28-2024 influenza virus vacc ine, unspecified formulation Generic Provider [facility] 02-28-2023 influenza virus vacc ine, unspecified formulation Topher SAAVEDRA [facility] 02-28-2023 Influenza, Seasonal, Quadrivalent, Adjuvanted Brody Ibrahim DPM Work Phone: [facility] 04-16-2022 influenza virus vacc ine, unspecified formulation Topher SAAVEDRA [facility] 04-16-2022 Influenza, Seasonal, Quadrivalent, Adjuvanted Brody Ibrahim DPM Work Phone: [facility] 03-23-2022 Moderna Bivalent Simmons ster Vaccination Brody Ibrahim DPM Work Phone: [facility] 03-23-2022 Moderna SARS-CoV-2 50mcg/0.5mL Booster Brody Ibrahim DPM Work Phone: [facility] 03-23-[address] 12 Years And Older Brody Ibrahim DPM Work Phone: [facility] 03-23-2022 SARS-CoV-2 (COVID-19 ) [id number] Topher SAAVEDRA [facility] 06-18-2021 SARS-CoV-2 (COVID-19 ) mRNA BNT-162b2 vax Topher SAAVEDRA [facility] 05-06-2021 influenza virus vacc ine, unspecified formulation Topher SAAVEDRA [facility] 05-06-2021 Influenza, Seasonal, Quadrivalent, Adjuvanted Brody Ibrahim DPM Work Phone: [facility] 05-06-2021 SARS-CoV-2 (COVID-19 ) Ad26 vaccine, recombinant Topher SAAVEDRA [facility] 08-28-2020 SARS-CoV-2 (COVID-19 ) mRNA BNT-162b2 vax Topher SAAVEDRA [facility] 08-28-2020 SARS-CoV-2, Unspecified Garry Ibrahim DPM Work Phone: [facility] 08-27-2020 Pfizer Purple Cap SARS-CoV-2 Vaccination Brody Ibrahim DPM Work Phone: [facility] 08-08-2020 SARS-CoV-2 (COVID-19 ) mRNA BNT-162b2 vax Topher SAAVEDRA [facility] Comment on above: Result Comment: 2022: [id number] 08-08-2020 SARS-CoV-2, Unspecified Garry Ibrahim DPM Work Phone: [facility] 08-07-2020 Pfizer Purple Cap SARS-CoV-2 Vaccination Brody Ibrahim DPM Work Phone: [facility] 08-04-2020 SARS-CoV-2 (COVID-19 ) Ad26 vaccine, recombinant Topher SAAVEDRA [facility] 03-22-2020 influenza virus vacc ine, unspecified formulation Topher SAAVEDRA [facility] [facility] 03-22-2020 Influenza, Seasonal, Quadrivalent, Adjuvanted Brody Ibrahim DPM Work Phone: [facility] 03-06-2019 pneumococcal conjuga te vaccine, 13 valent Topher SAAVEDRA [facility] 03-05-2019 influenza virus vacc ine, unspecified formulation Topher SAAVEDRA [facility] 03-05-2019 influenza, high dose seasonal, preservative-free Brody Ibrahim DPM Work Phone: [facility] 03-05-2019 pneumococcal polysaccharide vaccine, 23 valent Topher SAAVEDRA [facility] 03-04-2019 Influenza, High-dose Seasonal, Quadrivalent, Preservative Free Brody Ibrahim DPM Work Phone: [facility] 03-04-2019 pneumococcal polysaccharide vaccine, 23 valent Brody Ibrahim DPM Work Phone: [facility] 03-03-2018 influenza virus vacc ine, unspecified formulation Topher SAAVEDRA [facility] 03-03-2018 influenza, high dose seasonal, preservative-free Brody Ibrahim DPM Work Phone: [facility] 03-03-2018 pneumococcal conjuga te vaccine, 13 valent Topher SAAVEDRA [facility] 03-03-2018 pneumococcal polysaccharide vaccine, 23 valent Brody Ibrahim DPM Work Phone: [facility] 03-02-2018 pneumococcal conjuga te vaccine, 13 valent Brody Ibrahim DPM Work Phone: [facility] 04-06-2017 influenza virus vacc ine, unspecified formulation Topher SAAVEDRA [facility] 04-06-2017 influenza, injectabl e, quadrivalent, preservative free Brody Ibrahim DPM Work Phone: [facility] 12-04-2016 pneumococcal polysaccharide vaccine, 23 valent Topher SAAVEDRA [facility] 12-04-2016 zoster vaccine, live Topher SAAVEDRA [facility] 03-06-2016 Influenza Vaccine, unspecified formulation Mthz Schedule [facility] 03-06-2016 influenza virus vacc ine, H5N1, A/[place]/12008/2003 (national stockpile) Brody Ibrahim DPM Work Phone: [facility] 03-06-2016 influenza virus vacc ine, unspecified formulation Brody Ibrahim DPM Work Phone: [facility] 03-06-2016 Influenza, High-dose Seasonal, Quadrivalent, Preservative Free Brody Ibrahim DPM Work Phone: [facility] 03-06-2016 influenza, unspecifi ed formulation Topher SAAVEDRA [facility] 01-23-2016 influenza virus vacc ine, unspecified formulation Topher SAAVEDRA [facility] 01-23-2016 influenza, injectabl e, quadrivalent, preservative free Brody Rusher DPM Work Phone: [facility] 06-06-2015 pneumococcal polysaccharide vaccine, 23 valent Topher SAAVEDRA [facility] 03-23-2014 influenza virus vacc ine, unspecified formulation Topher SAAVEDRA [facility] 03-23-2014 influenza, seasonal, injectable Brody Rusher DPM Work Phone: [facility] 04-06-2013 influenza virus vacc ine, unspecified formulation Topher SAAVEDRA [facility] 04-06-2013 influenza, seasonal, injectable Brody Rusher DPM Work Phone: [facility] 04-06-2013 zoster vaccine, live Topher SAAVEDRA [facility] 04-05-2013 zoster vaccine, live Brody Rusher DPM Work Phone: [facility] 04-21-2009 novel influenza-H1N1 -09, preservative-free, injectable Brody Rusher DPM Work Phone: [facility] Healthcare Payers Date Payer Category Payer Self-pay 2022 Private Health Insurance AARP mber [id number] 2022 Unknown 2017 Medicare [id number] 2017 Medicare xxxxxxxxxxx [id number] 1959 Medicare [id number] [id number] .[id number] 1959 Private Health Insurance [id number] 1.2.840.726402.1.13.239.2 .7.3.457216.315 1952 Unknown [id number] 2.16.840.1.579357.3.579.2 .593 1952 Unknown [id number] 2.16.840.1.912554.3.579.2 .593 1952 Unknown [id number] 2.16.840.1.974536.3.579.2 .593 1952 Unknown [id number] 2.16.840.1.773857.3.579.2 .593 1952 Unknown [id number] 2.16.840.1.564387.3.579.2 .593 1952 Unknown [id number] 2.16.840.1.449548.3.579.2 .593 1952 Unknown [id number] 2.16.840.1.719809.3.579.2 .593 1952 Unknown [id number] 2.16.840.1.847557.3.579.2 .593 1952 Unknown [id number] 2.16.840.1.805132.3.579.2 .593 1952 Unknown [id number] 2.16.840.1.940796.3.579.2 .593 1952 Unknown [id number] 2.16.840.1.782255.3.579.2 .593 1952 Unknown [id number] 2.16.840.1.038798.3.579.2 .593 1952 Unknown [id number] 2.16.840.1.242175.3.579.2 .72 1952 Unknown [id number] 2.16.840.1.623460.3.579.2 .72 1952 Unknown [id number] 2.16.840.1.711531.3.579.2 .72 1952 Unknown [id number] 2.16.840.1.363481.3.579.2 .72 1952 Unknown [id number] 2.16.840.1.483652.3.579.2 .72 1952 Unknown [id number] 2.16.840.1.042178.3.579.2 .72 1952 Unknown [id number] 2.16.840.1.799580.3.579.2 .72 1952 Unknown [id number] 2.16.840.1.223136.3.579.2 .72 1952 Unknown [id number] 2.16.840.1.651386.3.579.2 .72 1952 Unknown [id number] 2.16.840.1.717849.3.579.2 .72 1952 Unknown [id number] 2.16.840.1.136394.3.579.2 .72 1952 Unknown [id number] 2.16.840.1.448954.3.579.2 .72 1952 Unknown [id number] 2.16.840.1.112054.3.579.2 .727 1952 Unknown [id number] 2.16.840.1.529204.3.579.2 .727 1952 Unknown [id number] 2.16.840.1.978037.3.579.2 .727 1952 Unknown [id number] 2.16.840.1.556271.3.579.2 .173 1952 Unknown [id number] 2.16.840.1.010458.3.579.2 .173 1952 Unknown [id number] 2.16.840.1.467973.3.579.2 .173 1952 Unknown [id number] 2.16.840.1.479178.3.579.2 .1259 1952 Unknown [id number] 2.16840.1.110643.3.579.2 .1258 1952 Unknown [id number] 2.16.840.1.502824.3.579.2 .125 1952 Unknown [id number] 2.16.840.1.755323.3.579.2 .1258 1952 Unknown [id number] 2.16.840.1.543513.3.579.2 .1259 1952 Unknown [id number] 2.16.840.1.119862.3.579.2 .125 1952 Unknown [id number] 2.16.840.1.593194.3.579.2 .125 1952 Unknown [id number] 2.16.840.1.940545.3.579.2 .125 1952 Unknown [id number] 2.16.840.1.340846.3.579.2 .125 1952 Unknown [id number] 2.16.840.1.804226.3.579.2 .125 1952 Unknown [id number] 2.16.840.1.344201.3.579.2 .1259 1952 Unknown [id number] 2.16.840.1.166878.3.579.2 .1259 Medicare [id number] Unknown [id number] 2.16.840.1.951186.3.579.2 .531 Social History Date Type Detail Facility Start: 10-18-2018 End: 12-06-2023 Tobacco smoking status NHIS Former smoker [place] Start: 08-31-1979 End: 06-06-2012 History of tobacco use Current smoker [place] Start: 10-18-2018 End: 09-18-2024 Cigarettes smoked current (pack per day) - Reported [facility] Start: 10-18-2018 End: 09-18-2024 Alcohol intake No [place] Start: 01-23-2014 End: 11-02-2023 Tobacco Comment quit smoking in 1999 [facility] Start: 1950 Sex Assigned At Not on file [place] Start: 10-18-2018 End: 11-02-2023 Alcohol intake Current non-drinker of alcohol (finding) [place] Start: 10-22-2020 End: 12-06-2023 Tobacco use and exposure Never used [facility] Start: 01-18-2022 End: 01-28-2022 Exposure to SARS-CoV-2 (event) Not sure [facility] Start: 08-31-1979 End: 06-06-2012 History of tobacco use Cigarette Smoker KITTY QUIROZ [facility] Work Phone: Start: 05-17-2023 End: 01-01-2025 Alcohol intake Current drinker of alcohol (finding) [...] Comment Last smoked : > 10 years [facility] Start: 01-19-2023 Alcohol Comment 1-2 drinks 2-4 x a month in the past year, Caffeine intake: 1-2 cups per day coffee [facility] Start: 08-18-2022 Gender identity Identifies as male gender (finding) [facility] Tobacco smoking stat us MNIS Unknown if ever smoked [facility] Work Phone: Sex Male (finding) [facility] Start: 1950 Sex Assigned At Male F [facility] Functional Status Date Assessment Result Facility 09-18-2024 Patient Health Quest ionnaire 2 item (PHQ-2) [Reported] [facility] 05-21-2024 Functional Status N/A [facility] 12-05-2023 Functional Status N/A [facility] 06-20-2023 Functional Status N/A [facility] 11-05-2022 Functional Status N/A [facility] 06-18-2022 Functional Status N/A [facility] 05-17-2022 Functional Status N/A [facility] 02-01-2022 Functional Status N/A [facility] Clinical Notes 10-22-2020 to 12-21-2024 Telephone Encounter - Laisha Castaneda - 12/03/2024 8:18 AM EDTTelephone Encounter - Laisha Castaneda - 12/03/2024 8:18 AM EDTTelephone Encounter - Jordan Duncan MD - 10/18/2024 12:45 PM EDT Note Date & Type Note Facility 12-21-2024 Note Patient is here for surgery clearance. Patient is having right 5th hammer toe removed. Patient states he feels pretty good, patient is able to every day chores. Patient denies cardiac symptoms at this time [facility] 12-21-2024 Note SUBJECTIVE Reason for Visit: Juan Miguel Jennings is a 74 y.o. year old male patient being seen for surgical clearance. HPI: Juan Miguel Jennings is a 74 y.o. year old male with significant medical history of CAD status post IN with stenting procedures in the past (2006, [...] injection INJECT 400MG INTRAMUSCULARLY EVERY 4 WEEKS Recent Labs: No visits with results within 6 Month(s) from this visit. Latest known visit with results is: No results found for any previous visit. I have personally reviewed and anaylzed the following laboratory results above. These findings have been analyzed in the context of [...] left ventricular systolic function is normal; visually estimate (more content not included)... [facility] 12-03-2024 Telephone encounter Note Bret called requesting a refill on his cyclobenzaprine (Flexeril) [address] [facility] [place] [facility] 12-03-2024 Miscellaneous Notes Bret called requesting a refill on his cyclobenzaprine (Flexeril) [facility] to [facility] [place] documented in this encounter [facility] 10-18-2024 Telephone encounter Note Reviewed in prescription sent. [facility] 10-18-2024 Miscellaneous Notes Reviewed in prescription sent. [...] is asking for these to go to [facility] in [place]. documented in this encounter [facility] 10-18-2024 Telephone encounter Note Bret called needing [...] is asking for these to go to [facility] in [place]. [facility] 09-18-2024 History of Present illness Narrative Images [...] measure for HEDIS. 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 Hearing Screening: Yes, concerned about hearing loss Cognitive Screening Self Assessment: No concerns rasied by family members, friends, or caretakers Three Word Registration: Jeronimo, Zakiya, Finger Clock Drawing: Normal Clock - 2 Three Word Recall: 2/3 words correct - 2 Total Score (0-5 Points): 4 Advance Care Planning Do you have a living will?: Yes Do you have a medical power of doll eye setter?: Yes Who is your medical power of doll eye setter?: Mary Yancey- Daughter Objective : BP 120/74 [...] Morbid (severe) obesity due to excess calories ([facility]) Patient has lost some weight but with his comorbid conditions he still meets the criteria for morbid obesity. 6. BMI 39.0-39.9,adult Defines the morbid obesity 7. Type 2 diabetes mellitus with diabetic polyneuropathy, without long-term current use of insulin ([facility]) Chronic problem, stable, monitored longitudinally. 8. Type 2 diabetes mellitus with diabetic microalbuminuria, without long-term current use of insulin ([facility]) Chronic problem, stable, monitored longitudinally. 9. Type 2 diabetes mellitus with foot ulcer (CODE) ([facility]) Chronic problem, stable, monitored longitudinally. Primarily managed by Podiatry 10. Non-pressure chronic ulcer of other part of unspecified foot with unspecified severity ([facility]) Chronic problem, stable, monitored longitudinally.Primarily managed by Podiatry 11. 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 Partial nontraumatic amputation of foot, left (CMS/HCC) Chronic problem, stable, monitored longitudinally.Primarily managed by Podiatry 13. 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 He [...] the left s (more content not included)... [facility] 07-05-2024 History of Present illness Narrative [...] any dizziness. documented in this encounter [facility] 06-18-2024 Telephone encounter Note Prescription sent [facility] 06-18-2024 Miscellaneous Notes Prescription sent Bret left a message requesting a refill on his Famotidine to [facility] in [place]. documented in this encounter [facility] 06-18-2024 Telephone encounter Note Bret left a message requesting a refill on his Famotidine to [facility] in [place]. [facility] 06-08-2024 Note Contacted patient to discuss lipids management. Reviewed mechanism of action, side effects, and administration of Repatha with patient; pt agreeable to start. Will send RX to assess costs. Of note, pt may qualify for patient assistance [facility]. Will fill out paperwork and send to Cardiology to assist in obtaining signature and income documents. Iron Bess PharmD Cardiology Outpatient Clinical Pharmacist 06/11/24 [facility] 06-08-2024 Note Application for [employer] filled out for patient. Requires patient signature. Will notify Cardiology desktop support engineer to coordinate signature by patient. Application uploaded to media. Patient will come to Cardiology clinic to sign. Iron Bess PharmD Cardiology Outpatient Clinical Pharmacist 06/14/24 [facility] 06-08-2024 Note [facility] - Lipids Provider: Dr. Huddleston Department: Cardiology Juan Miguel Jennings is a 74 y.o. male with PMH of CAD s/p IN and stents, HTN, HLD, MO w/ CPAP, [...] Bess PharmD Cardiology Outpatient Clinical Pharmacist 06/11/24 [facility] 05-21-2024 Hospital Discharge instructions Patient Education [...] your health care provider. General instructions Take gmac-lxm-krpvcim and prescription medicines only as told by [...] provider. Document Revised: 02/09/2021 Document Reviewed: 02/09/2021 Rethink Patient Education 2023 docTrackr. Follow Up Care 02/27/2024 09:12:26 With:KERI NOLASCO, Topher Ordoñez, URL Address: [facility] [address] , [place] [address]- When: Unknown [facility] 05-21-2024 Evaluation + Plan note Diagnostic Tests PendingTestosterone Level Total 05/21/24CBC w/ Auto Diff 05/21/24 [facility] 05-21-2024 Note Patient Education Obstetrics and [...] health care provider. General instructions ??? Take rqlh-xgf-tspxmen and prescription medicines only as told by [...] drink, and whe (more content not included)... [facility] 05-15-2024 History of Present illness Narrative Images [...] Ibrahim DPM documented in this encounter [facility] 05-15-2024 Instructions Brody Ibrahim DPM - 05/15/2024 10:15 AM EST As noted documented in this encounter [facility] 05-02-2024 Note Cardiovascular Medic [facility] SUBJECTIVE Chief Complaint Patient presents with Coronary Artery Disease Hypertension Juan Miguel Jennings is a 74 y.o. male here for follow-up. 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 [facility] 05-02-2024 Note Patient here for 1 [...] All other systems reviewed and are negative. [facility] 04-23-2024 History of Present illness Narrative Images from the original note were not included. Subjective Patient ID: Juan Miguel Jennings is a 74 y.o. male who presents for Shoe endoscopy support specialist (Juan Miguel Jennings is a 74 y.o. [...] 03/2017 [facility] OTHER SURGICAL HISTORY 4 stents Geraldo Stafford - 1997 OTHER SURGICAL HISTORY rectal cancer; surgery, chemo [place] and radiation [place]. OTHER SURGICAL HISTORY 09/30/2022 Marissa Kaur, RADHA Saavedra TOTAL KNEE ARTHROPLASTY Right 2014 [...] Ibrahim DPM documented in this encounter [facility] 04-23-2024 Instructions Brody Ibrahim DPM - 04/23/2024 11:00 AM EST Instructions as noted documented in this encounter [facility] 04-09-2024 Telephone encounter Note Custom orthotics arrived senthil Gruber [facility] 04-09-2024 Miscellaneous Notes Custom orthotics arrived senthil Gruber documented in this encounter [facility] 03-29-2024 History of Present illness Narrative Images [...] 03/2017 lesions on bottom of both feet, [facility] OTHER SURGICAL HISTORY 4 stents Geraldo Stafford - 1997 OTHER SURGICAL HISTORY rectal cancer; surgery, chemo [place] and radiation [place]. OTHER SURGICAL HISTORY 09/30/2022 Dorsal Slit, Keri, [facility] TOTAL KNEE ARTHROPLASTY Right 2014 Alexsander [...] Measurements obtained in the weight-bearing position utilizing [employer] Digital[employer] device. Foam impressions obtained simulated weight-bearing. Patient [...] Ibrahim DPM documented in this encounter [facility] 03-29-2024 Instructions Brody Ibrahim DPM - 03/29/2024 1:00 PM EDT As noted documented in this encounter [facility] 03-27-2024 History of Present illness Narrative Images [...] with Hgb A1C. Also this is a amis-qc-rupb visit for consideration for diabetic shoes. Patient [...] polyneuropathy, without long-term current use of insulin ([facility]) (Primary) Chronic problem, stable, to goal. Patient has multiple podiatric issues. The forms from Podiatry were reviewed. Patient's feet were examined. I concur with the forms from Podiatry. Diabetic shoes are medically indicated. I certify that I had a ukhy-nn-nfht encounter with this patient at todays office visit. Due to this medical condition the patient requires DME. I certify that based on my findings The DME ordered is medically necessary for this patient. This has been discussed with the patient and/or their tax compliance representative and mutually agreed upon. See the [...] 5. Partial nontraumatic amputation of right foot ([facility]) Comorbid condition currently being managed by Podiatry 6. Partial nontraumatic amputation of foot, left ([facility]) Comorbid condition currently being managed by Podiatry 7. Venous stasis dermatitis of both lower extremities Chronic problem, stable. Does not appear to be progressing significantly. Discussed the importance of keeping the area moisturized. 8. Type 2 diabetes mellitus with diabetic microalbuminuria, without long-term current use of insulin ([facility]) Chronic problem, stable, to goal. [...] stratification for cardiovascular disease. 10. Essential hypertension ([facility]) In prescribing a renewal to [...] as able documented in this encounter [facility] 03-13-2024 History of Present illness Narrative Images [...] Ibrahim DPM documented in this encounter [facility] 03-13-2024 Instructions Brody Ibrahim DPM - 03/13/2024 9:45 AM EDT As noted documented in this encounter [facility] 12-05-2023 Hospital Discharge instructions Patient Education 12/05/2023 [...] therapy. Follow these instructions at home: Take smrg-ttb-fplptya and prescription medicines only as told by [...] provider. Document Revised: 01/22/2021 Document Reviewed: 01/22/2021 Rethink Patient Education 2022 docTrackr. Follow Up Care 12/05/2023 07:35:26 With:KERI NOLASCO, Topher Ordoñez, URL Address: [facility] [address] , [place] [phone] When: Unknown [facility] 12-05-2023 Note Patient Education Urology Hypogonadism, Male [...] Follow these instructions at home: ? Take jpkr-fcy-fxzdjau and prescription medicines only as told by [...] Document Revised: (more content not included)... [facility] 11-07-2023 Hospital Discharge instructions Follow Up Care 11/07/2023 08:41:09 With:KERI NOLASCO, Topher Ordoñez, URL Address: [facility] [address] [place] [address]- [phone] When: Unknown [facility] 07-19-2023 History of Present illness Narrative [...] May 2023; effectively healed following treatment at [facility] wound Center. Currently relates no bleeding or [...] 2010 Geraldo Raza CATARACT EXTRACTION Left 2019 [facility] OTHER SURGICAL HISTORY 03/2017 lesions on bottom of both feet, [facility] OTHER SURGICAL HISTORY 4 stents Geraldo [...] with wound right foot; effectively managed at [facility] wound care center. Care plan: [...] Ibrahim DPM documented in this encounter [facility] 07-19-2023 Instructions Brody Ibrahim DPM - 07/19/2023 10:30 AM EST As noted documented in this encounter [facility] 06-20-2023 Hospital Discharge instructions Patient Education 06/20/2023 [...] therapy. Follow these instructions at home: Take ytfm-vha-kfkdwfh and prescription medicines only as told by [...] provider. Document Revised: 01/22/2021 Document Reviewed: 01/22/2021 Rethink Patient Education 2022 docTrackr. Follow Up Care 02/08/2023 12:23:35 With:KERI NOLASCO, Topher Ordoñez, URL Address: [facility] [address] , [place] [address]- [phone] When: Unknown Comments:6 mos w/ PSA and T level (pt to also get PSA now) [facility] 11-05-2022 Hospital Discharge instructions Patient [...] urethra. Follow these instructions at home: Take galf-sqy-duwslqu and prescription medicines only as told by [...] provider. Document Revised: 12/09/2021 Document Reviewed: 12/09/2021 Rethink Patient Education 2022 docTrackr. Follow Up Care 05/17/2022 10:46:35 With:KERI NOLASCO, Topher R, URL Address: [facility] [address] [place] [address]- When: Unknown [facility] 11-03-2022 History of Present illness Narrative Patient [...] for visit documented in this encounter [facility] Work Phone: 09-15-2022 Note EXAM: XR CHEST 2 V HISTORY: Pre-surgery evaluation COMPARISON: None. TECHNIQUE: PA and lateral views of the chest. FINDINGS: The cardiomediastinal silhouette is normal. No focal consolidation is identified. There is no pneumothorax. No pleural effusion is noted. The osseous structures are intact. IMPRESSION: No acute cardiopulmonary process. Electronically authenticated by: DARRIUS BOLTON Date: 2022-09-15 12:26 [facility] 06-18-2022 Hospital Discharge instructions Patient Education 06/18/2022 [...] urethra. Follow these instructions at home: Take gxlk-[id number]-[id number] and prescription medicines only as told by [...] 05/23/2006 Document Revised: 04/17/2019 Document Reviewed: 06/27/2017 [employer] Patient Education 2020 docTrackr. Follow Up Care 06/14/2022 09:33:13 With:KERI NOLASCO, Topher Ordoñez, URL Address: [address] [place], [place] [id number]- When: Unknown [facility] 05-17-2022 Hospital Discharge instructions Patient Education 05/17/2022 [...] urethra. Follow these instructions at home: Take hpfi-oxf-blqnxjh and prescription medicines only as told by [...] 05/23/2006 Document Revised: 04/17/2019 Document Reviewed: 06/27/2017 [employer] Patient Education 2019 docTrackr. Follow Up Care 04/21/2022 09:42:50 With:KERI NOLASCO, Topher Ordoñez, URL Address: [facility] [address], [place] [address]- When: Unknown [facility] 03-23-2022 Note PROCEDURE: XR FOOT R T [...] authenticated by: BRODY PAYAN Date: 2022-03-23 06:26 [facility] 02-01-2022 Hospital Discharge instructions Patient Education 02/01/2022 [...] urethra. Follow these instructions at home: Take digx-uir-wswgnuo and prescription medicines only as told by [...] 05/23/2006 Document Revised: 04/17/2019 Document Reviewed: 06/27/2017 [employer] Patient Education 2020 docTrackr. Follow Up Care 08/03/2021 15:20:11 With:KERI NOLASCO, Topher Ordoñez, URL Address: [address] [place] [address]- When: Unknown [facility] 10-22-2020 History of Present illness Narrative 1225 [...] [facility] + Plan note Future Appointments Appointment Date:09/28/2021 09:00:00 AM Scheduled Provider: Location:[facility] Appointment Type:URO Nurse Visit Appointment Date:02/01/2022 09:45:00 AM Scheduled Provider:Topher SAAVEDRA MD Location:[facility] Appointment Type:URO Office Visit [facility] Evaluation + Plan note Future Appointments Appointment Date:10/26/2021 09:00:00 AM Scheduled Provider: Location:[facility] Appointment Type:URO Nurse Visit Appointment Date:02/01/2022 09:45:00 AM Scheduled Provider:Topher SAAVEDRA MD Location:[facility] Appointment Type:URO Office Visit [facility] Evaluation + Plan note Future Appointments Appointment Date:11/23/2021 09:00:00 AM Scheduled Provider: Location:[facility] Appointment Type:URO Nurse Visit Appointment Date:02/01/2022 09:45:00 AM Scheduled Provider:Topher SAAVEDRA MD Location:[facility] Appointment Type:URO Office Visit [facility] Evaluation + Plan note Future Appointments Appointment Date:12/21/2021 09:00:00 AM Scheduled Provider: Location:[facility] Appointment Type:URO Nurse Visit Appointment Date:02/01/2022 09:45:00 AM Scheduled Provider:Topher SAAVEDRA MD Location:[facility] Appointment Type:URO Office Visit [facility] Evaluation + Plan note Future Appointments Appointment Date:02/01/2022 09:45:00 AM Scheduled Provider:Topher SAAVEDRA MD Location:[facility] Appointment Type:URO Office Visit Diagnostic Tests PendingTestosterone Level Total 12/21/21 [facility] Evaluation + Plan note Future Appointments Appointment Date:03/01/2022 09:30:00 AM Scheduled Provider: Location:[facility] Appointment Type:URO Nurse Visit Diagnostic Tests PendingTestosterone Level Total 04/06/22PSA Total 03/06/22 [facility] Evaluation + Plan note Future Appointments Appointment Date:03/31/2022 08:15:00 AM Scheduled Provider: Location:[facility] Appointment Type:URO Nurse Visit [facility] Evaluation + Plan note Future Appointments Appointment Date:04/21/2022 09:15:00 AM Scheduled Provider: Location:[facility] Appointment Type:URO Nurse Visit [facility] Evaluation + Plan note Future Appointments Appointment Date:05/19/2022 08:00:00 AM Scheduled Provider:Mandy Schaefer MD Location:[facility] Appointment Type:URO Office Visit Diagnostic Tests PendingPSA Total 04/16/22Testosterone Level Total 04/16/22 [facility] Evaluation + Plan note Future Appointments Appointment Date:06/14/2022 09:00:00 AM Scheduled Provider: Location:[facility] Appointment Type:URO Nurse Visit Appointment Date:11/15/2022 08:45:00 AM Scheduled Provider:Topher SAAVEDRA MD [facility] Type:URO Office Visit Diagnostic Tests PendingPSA Total 05/17/22Testosterone Level Total 05/17/22 [facility] Evaluation + Plan note Future Appointments Appointment Date:09/06/2022 09:00:00 AM Scheduled Provider: Location:[facility] Appointment Type:URO Nurse Visit Appointment Date:11/15/2022 08:45:00 AM Scheduled Provider:Topher SAAVEDRA MD [facility] Appointment Type:URO Office Visit [facility] Evaluation + Plan note Future Appointments Appointment Date:10/05/2022 09:00:00 AM Scheduled Provider: [facility] App[facility] Type:URO Nurse Visit Appointment Date:10/29/2022 08:45:00 AM Scheduled Provider:Topher SAAVEDRA MD [facility] Appoint[facility] Type:URO Office Visit Appointment Date:11/05/2022 09:45:00 AM Scheduled Provider:Topher SAAVEDRA MD [facility] App[facility] Type:URO Office Visit [facility] Evaluation + Plan note Future Appointments Appointment Date:11/05/2022 09:45:00 AM Scheduled Provider:Topher SAAVEDRA MD [facility] Appointment Type:URO Office Visit [facility] Evaluation + Plan note Future Appointments Appointment Date:12/03/2022 09:15:00 AM Scheduled Provider: Location:[facility] Appointment Type:URO Nurse Visit Diagnostic Tests PendingTestosterone Level Total 11/05/22PSA Total 11/05/22 [facility] Evaluation + Plan note Future Appointments Appointment Date:01/03/2023 08:15:00 AM Scheduled Provider: [facility] Appointment Type:URO Nurse Visit [facility] Evaluation + Plan note Future Appointments Appointment Date:01/31/2023 08:45:00 AM Scheduled Provider: Location:[facility] [place] Appointment Type:URO Nurse Visit [facility] Evaluation + Plan note Future Appointments Appointment Date:03/07/2023 08:45:00 AM Scheduled Provider: Location:[facility] [place] Appointment Type:URO Nurse Visit Appointment Date:04/04/2023 08:45:00 AM Scheduled Provider: Location:[facility] [place] Appointment Type:URO Nurse Visit Appointment Date:05/02/2023 08:45:00 AM Scheduled Provider: Location:[facility] [place] Appointment Type:URO Nurse Visit Appointment Date:05/27/2023 09:45:00 AM Scheduled Provider:Topher SAAVEDRA MD Location:[facility] [place] Appointment Type:URO Office Visit [facility] Evaluation + Plan note Future Appointments Appointment Date:05/02/2023 08:45:00 AM Scheduled Provider: Location:[facility] [place] Appointment Type:URO Nurse Visit Appointment Date:06/20/2023 10:30:00 AM Scheduled Provider:Topher SAAVEDRA MD Location:[facility] [place] Appointment Type:URO Office Visit [facility] Evaluation + Plan note Future Appointments Appointment Date:06/20/2023 10:30:00 AM Scheduled Provider:Topher SAAVEDRA MD Location:[facility] Appointment Type:URO Office Visit Diagnostic Tests PendingTestosterone Level Total 05/09/23 [facility] Evaluation + Plan note Future Appointments Appointment Date:07/18/2023 09:30:00 AM Scheduled Provider: Location:[facility] Appointment Type:URO Nurse Visit Diagnostic Tests PendingPSA Total 06/20/23Testosterone Level Total 06/20/23 [facility] Evaluation + Plan note Future Appointments Appointment Date:08/15/2023 10:00:00 AM Scheduled Provider: Location:[facility] Appointment Type:URO Nurse Visit [facility] Evaluation + Plan note Future Appointments Appointment Date:09/09/2023 08:30:00 AM Scheduled Provider: Location:[facility] Appointment Type:URO Nurse Visit [facility] Evaluation + Plan note Future Appointments Appointment Date:10/07/2023 08:30:00 AM Scheduled Provider: Location:[facility] Appointment Type:URO Nurse Visit [facility] Evaluation + Plan note Future Appointments Appointment Date:11/07/2023 09:00:00 AM Scheduled Provider: Location:[facility] Appointment Type:URO Nurse Visit [facility] Evaluation + Plan note Future Appointments Appointment Date:12/05/2023 10:45:00 AM Scheduled Provider:Tophre SAAVEDRA MD Location:[facility] Appointment Type:URO Office Visit [facility] Evaluation + Plan note Future Appointments Appointment Date:01/02/2024 09:00:00 AM Scheduled Provider: Location:[facility] Appointment Type:URO Nurse Visit Diagnostic Tests PendingTestosterone Level Total 12/05/23emoglobin 12/05/23 [facility] Evaluation + Plan note Future Appointments Appointment Date:01/02/2024 09:00:00 AM Scheduled Provider: [facility] Appointment Type:URO Nurse Visit [facility] Evaluation + Plan note Future Appointments Appointment Date:02/27/2024 09:00:00 AM Scheduled Provider: Location:[facility] Appointment Type:URO Nurse Visit [facility] Evaluation + Plan note Future Appointments Appointment Date:03/27/2024 09:00:00 AM Scheduled Provider: Location:[facility] [place] Appointment Type:URO Nurse Visit Appointment Date:04/23/2024 09:30:00 AM Scheduled Provider: Location:[facility] [place] Appointment Type:URO Nurse Visit Appointment Date:05/21/2024 10:45:00 AM Scheduled Provider:Topher SAAVEDRA MD [facility] Type:URO Office Visit [facility] Evaluation + Plan note Future Appointments Appointment Date:04/23/2024 09:30:00 AM Scheduled Provider: Location:[facility] [place] Appointment Type:URO Nurse Visit Appointment Date:05/21/2024 10:45:00 AM Scheduled Provider:Topher SAAVEDRA MD Location:[facility] [place] Appointment Type:URO Office Visit [facility] Evaluation + Plan note Future Appointments Appointment Date:05/08/2024 09:00:00 AM Scheduled Provider: Location:[facility] [place] Appointment Type:URO Nurse Visit Appointment Date:05/21/2024 10:45:00 AM Scheduled Provider:Topher SAAVEDRA MD Location:[facility] [place] Appointment Type:URO Office Visit [facility] Evaluation note Diagnosis Polycythemia- Primary Polycythemia vera documented in this encounter [employer] Phone: evaluation note* Diagnosis Polycythemia- Primary Polycythemia vera documented in this encounter [employer] Phone: evaluation note* Diagnosis Dermatophytosis of nail- Primary Dystrophic nail Other specified disease of nail Diabetic polyneuropathy associated with type 2 diabetes mellitus ([facility]/HCC) Nontraumatic amputation of foot, right ([facility]/HCC) Nontraumatic amputation of foot, left ([facility]/HCC) Acquired keratoderma documented in this encounter [facility] Healthcare[facility]* Diagnosis Acquired keratoderma- Primary Diabetic polyneuropathy associated with type 2 diabetes mellitus ([facility]/HCC) Nontraumatic amputation of foot, left ([facility]/HCC) Nontraumatic amputation of foot, right ([facility]/HCC) documented in this encounter [facility] HealthcareEvaluation note* Diagnosis Type 2 diabetes mellitus with diabetic polyneuropathy, without long-term current use of insulin ([facility])- Primary Acquired hallux malleus of left foot Acquired hammer toes of both feet Foot callus Corns and callosities Partial nontraumatic amputation of right foot ([facility]/HCC) Partial nontraumatic amputation of foot, left ([facility]/HCC) Venous stasis dermatitis of both lower extremities Type 2 diabetes mellitus with diabetic microalbuminuria, without long-term current use of insulin ([facility]) Microalbuminuria Proteinuria Essential hypertension ([facility]) Unspecified essential hypertension Mixed hyperlipidemia ([facility]) Mixed hyperlipidemia Adverse reaction to statin medication Former smoker Personal history of tobacco use, presenting hazards to health Morbid obesity ([facility]) Morbid obesity documented in this encounter [facility] HealthcareEvaluation note* Diagnosis Diabetic polyneuropathy associated with type 2 diabetes mellitus (CMS/HCC)- Primary Nontraumatic amputation of foot, left (CMS/HCC) Nontraumatic amputation of foot, right ([facility]/HCC) documented in this encounter [facility] HealthcareEvaluation note* Diagnosis Diabetic polyneuropathy associated with type 2 diabetes mellitus (CMS/HCC)- Primary Nontraumatic amputation of foot, left ([facility]/HCC) Nontraumatic amputation of foot, right ([facility]/HCC) documented in this encounter [facility]* Diagnosis Dyspepsia Dyspepsia and other specified disorders of function of stomach documented in this encounter [facility] Healthcare[facility] note* Diagnosis Polycythemia- Primary Polycythemia vera documented in this encounter [facility] Diagnosis Encounter for Medicare annual wellness exam- Primary Advance directive in chart Encounter for screening for other disorder Screening for alcohol problem Screening for alcoholism Morbid (severe) obesity due to excess calories ([facility]) BMI 39.0-39.9,adult Type 2 diabetes mellitus with diabetic polyneuropathy, without long-term current use of insulin ([facility]) Type 2 diabetes mellitus with diabetic microalbuminuria, without long-term current use of insulin ([facility]) Type 2 diabetes mellitus with foot ulcer (CODE) ([facility]) Non-pressure chronic ulcer of other part of unspecified foot with unspecified severity ([facility]) Partial nontraumatic amputation of right foot ([facility] Partial nontraumatic amputation of foot, left ([facility]) Atherosclerosis of [place] coronary artery of [place] heart without angina pectoris ([facility]) History of myocardial infarction ([facility]) Mixed hyperlipidemia ([facility]) Mixed hyperlipidemia Adverse reaction to statin medication Primary open angle glaucoma of both eyes, unspecified glaucoma stage ([facility]) documented in this encounter [facility]* Diagnosis Dyspepsia Dyspepsia and other specified disorders of function of stomach Essential hypertension ([facility]) Unspecified essential hypertension Microalbuminuria Proteinuria Mixed hyperlipidemia ([facility]) Mixed hyperlipidemia Type 2 diabetes mellitus with diabetic microalbuminuria, without long-term current use of insulin ([facility]) Type 2 diabetes mellitus with diabetic polyneuropathy, without long-term current use of insulin ([facility]) documented in this encounter [facility]* Diagnosis Essential hypertension ([facility])- Primary Unspecified essential hypertension Microalbuminuria Proteinuria Type 2 diabetes mellitus with diabetic microalbuminuria, without long-term current use of insulin ([facility]) Type 2 diabetes mellitus with diabetic polyneuropathy, without long-term current use of insulin ([facility]) Mixed hyperlipidemia ([facility]) Mixed hyperlipidemia Adverse reaction to statin medication documented in this encounter [facility]* Diagnosis Lumbar paraspinal muscle spasm Other symptoms referable to back Dyspepsia Dyspepsia and other specified disorders of function of stomach Type 2 diabetes mellitus with diabetic polyneuropathy, without long-term current use of insulin ([facility]) documented in this encounter [facility]* Diagnosis Lumbar paraspinal muscle spasm Other symptoms referable to back documented in this encounter [facility] HealthcareEvaluation noteNo assessment information [facility] [employer] Work Phone: Hospital course Narrative No data available for this section [facility] Hospital Discharge instructions No data available for this section [facility] progress note No data available for this section [facility] reason for referral (narrative)No reason for referral [facility] Work Phone: Summary Purpose Family History No Family History [...] FoundDocuments on File Type Date Recorded Patient Reviewer Sales Expl anation Advance Directives and Livin g Will Advance Directives and Livin g Will 08/31/2013 9:46 AM Power of Institutional Nutrition Consultant Power of Institutional Nutrition Consultant 08/31/2013 9:46 AM Latest Code Status on File Code Status Date Activated Date Inactivated Comments Full Code 08/06/2016 9:06 AM 08/09/2016 5:53 PM Full Code 08/04/2016 9:28 PM 08/06/2016 9:06 AM Full Code 05/15/2015 12:42 PM 05/19/2015 6:52 PM Full Code 05/12/2015 11:22 AM 05/15/2015 12:42 PM Full Code 05/13/2014 2:36 PM 05/13/2014 9:20 PM Documents on File Type Date Recorded Patient Reviewer Sales Expl anation ACP-Advance Directive ACP-Power of Institutional Nutrition Consultant ACP-Advance Directive 08/31/2013 9:46 AM ACP-Power of Institutional Nutrition Consultant 08/31/2013 9:46 AM Documents on File Type Date Recorded Patient Reviewer Sales Expl anation ACP-Advance Directive 08/31/2013 9:46 AM ACP-Power of Institutional Nutrition Consultant 08/31/2013 9:46 AM Latest Code Status on [...] Documents on File Type Date Recorded Patient Reviewer Sales Expl anation Advance Directives and Living Will 11/20/2019 2018-05-09 Living Wi ll Advance Directives and Living Will 11/20/2019 2018-05-09 Power Of Institutional Nutrition Consultant Documents on File Type Date Recorded Patient Reviewer Sales Expl anation ACP-Power of Institutional Nutrition Consultant 08/31/2013 9:46 AM ACP-Advance Directive 08/31/2013 9:46 AM Date Activated Date Inactivated Comments 08/06/2016 9:06 AM 08/09/2016 5:53 PM Date Activated Date Inactivated Comments 08/04/2016 9:28 PM 08/06/2016 9:06 AM Date Activated Date Inactivated Comments 05/15/2015 12:42 PM 05/19/2015 6:52 PM Date Activated Date Inactivated Comments 05/12/2015 11:22 AM 05/15/2015 12:42 PM Date Activated Date Inactivated Comments 05/13/2014 2:36 PM 05/13/2014 9:20 PM Advance Directive Response Recorded Date/ Time Advance Directives No May 09, 2021 9:24am History of Present Illness * Luh Hoffman [...] denies any questions. documented in this encounter* Ailson Sorenson RN - 07/27/2019 8:00 AM EST [...] section and content) DATE CREATED AUTHOR 11/24/2017 [facility] DATE CREATED AUTHOR AUTHOR'S ORGANIZ ATION 03/15/2018 [facility] DATE CREATED AUTHOR AUTHOR'S ORGANIZ ATION 09/26/2021 [facility] Specialist DATE CREATED AUTHOR AUTHOR'S ORGANIZ ATION 11/13/2022 [facility] DATE CREATED AUTHOR AUTHOR'S ORGANIZ ATION 06/03/2024 [facility] DATE CREATED AUTHOR AUTHOR'S ORGANIZ ATION 07/07/2024 [facility] DATE CREATED AUTHOR AUTHOR'S ORGANIZ ATION 09/14/2024 [facility] DATE CREATED AUTHOR AUTHOR'S ORGANIZ ATION 09/19/2024 [facility]ists EPIC DATE CREATED AUTHOR AUTHOR'S ORGANIZ ATION 10/13/2024 [facility] DATE CREATED AUTHOR AUTHOR'S ORGANIZ ATION 01/08/2025 [facility] DATE CREATED AUTHOR AUTHOR'S ORGANIZ ATION 01/11/2025 [facility] Care Team (unrecognized sect ion and content) Stores Assistant Relationship Specialty Start Date End Date Jordan Duncan MD PCP - General 07/25/19 Stores Assistant Relationship Specialty Start Date End Date Jordan Duncan MD [address] [place] [address] PCP - General Family Medicine 10/25/22 Mitch Mello MD [address] [place] [address] Referring Physician Cardiology 05/17/23 Jr. Anuja Henson DO [address] [address] Referring Physician Orthopaedic Surgery 05/17/23 Brody Ibrahim DPM [address] [facility] [place] [address] Referring Physician Podiatry 05/17/23 Stores Assistant Relationship Specialty Start Date End Date Jordan Duncan MD [address] [phone] PCP - General Family Medicine 10/25/22 Mitch Mello MD [address] [place] [address] Referring Physician Cardiology 05/17/23 Jr. Anuja Henson DO [address] [facility] 150 [place] [address] Referring Physician Orthopaedic Surgery 05/17/23 Brody Ibrahim DPM [address] [place] [address] Referring Physician Podiatry 05/17/23 Stores Assistant Relationship Specialty Start Date End Date Jordan Duncan MD [address] [place] [address] (Fax) PCP - General Family Medicine 10/25/22 Jordan Duncan MD [address] [place] [address] (Fax) PCP - ACO Reach 08/05/23 Mitch Mello MD [address] [place] [phone] Referring Physician Cardiology 05/17/23 Jr. Anuja Henson DO [address] [place] [address] Referring Physician Orthopaedic Surgery 05/17/23 Brody Ibrahim DPM [address] [place] [address] [place] [address] Referring Physician Podiatry 05/17/23 Stores Assistant Relationship Specialty Start Date End Date Jordan Duncan MD [address] [place] [address] (Fax) PCP - General Family Medicine 10/25/22 Jordan Duncan MD [address] [place] [address] (Fax) PCP - ACO Reach 08/05/23 Mitch Mello MD [address] [place] [phone] Referring Physician Cardiology 05/17/23 Jr. Anuja Henosn DO [address] [address] Referring Physician Orthopaedic Surgery 05/17/23 Brody Ibrahim DPM [address] [place] [address] Referring Physician Podiatry 05/17/23 Stores Assistant Relationship Specialty Start Date End Date Jordan Duncan MD [address] [place] [address] (Fax) PCP - General Family Medicine 10/25/22 Jordan Duncan MD [address] [place] [address] (Fax) PCP - ACO Reach 08/05/23 Mitch Mello MD [address] [place] [address] Referring Physician Cardiology 05/17/23 Jr. Anuja Henson DO [address] [address] Referring Physician Orthopaedic Surgery 05/17/23 Brody Ibrahim DPM [address] [place] [address] Referring Physician Podiatry 05/17/23 Stores Assistant Relationship Specialty Start Date End Date Jordan Duncan MD [address] [place] [address] (Fax) PCP - General Family Medicine 10/25/22 Jordan Duncan MD [address] [place] [address] (Fax) PCP - ACO Reach 08/05/23 Mitch Mello MD [address] [place], [place] [phone] Referring Physician Cardiology 05/17/23 Jr. Anuja Henson, DO [address] [facility] 150 [place] [address] Referring Physician Orthopaedic Surgery 05/17/23 Brody Ibrahim DPM [address] [place] [address] Referring Physician Podiatry 05/17/23 Stores Assistant Relationship Specialty Start Date End Date Jordan Duncan MD [address] [place] [address] (Fax) PCP - General Family Medicine 10/25/22 Jordan Duncan MD [address] [place] [address] (Fax) PCP - ACO Reach 08/05/23 Mitch Mello MD [address] [place], [place] [phone] Referring Physician Cardiology 05/17/23 Jr. Anuja Henson, [address] [facility] [address] [place] [address] Referring Physician Orthopaedic Surgery 05/17/23 Brody Ibrahim DPM [address] [place] [address] Referring Physician Podiatry 05/17/23 Stores Assistant Relationship Specialty Start Date End Date Jordan Duncan MD [address] [place] [address] (Fax) PCP - General Family Medicine 10/25/22 Jordan Duncan MD [address] [place] [address] (Fax) PCP - ACO Reach 08/05/23 Mitch Mello MD [address] [place] [address] Referring Physician Cardiology 05/17/23 Jr. Anuja Henson DO [address] [address] Referring Physician Orthopaedic Surgery 05/17/23 Brody Ibrahim DPM [address] [place] [address] Referring Physician Podiatry 05/17/23 Stores Assistant Relationship Specialty Start Date End Date Jordan Duncan MD [address] [place] [phone] (Fax) PCP - General Family Medicine 10/25/22 Jordan Duncan MD [address] [facility] 100 [place] [address] (Fax) PCP - ACO Reach 08/05/23 Mitch Mello MD [address] [place] [address] Referring Physician Cardiology 05/17/23 Jr. Anuja Henson DO [address] [facility] 150 [place] [address] Referring Physician Orthopaedic Surgery 05/17/23 Brody Ibrahim DPM [address] [place] [address] Referring Physician Podiatry 05/17/23 Stores Assistant Relationship Specialty Start Date End Date Jordan Duncan MD [address] [place] [address] (Fax) PCP - General Family Medicine 10/25/22 Jordan Duncan MD [address] [place] [address] (Fax) PCP - ACO Reach 08/05/23 Mitch Mello MD [address] [place] [address] Referring Physician Cardiology 05/17/23 Jr. Anuaj Henson DO [address] [facility] [address] [place] [address] Referring Physician Orthopaedic Surgery 05/17/23 Brody Ibrahim DPM [address] [place] [address] Referring Physician Podiatry 05/17/23 Stores Assistant Relationship Specialty Start Date End Date Jordan Duncan MD [address] [facility] 100 [place] [address] (Fax) PCP - General Family Medicine 10/25/22 Jordan Duncan MD [address] [place] [address] PCP - ACO Reach 08/05/23 Mitch Mello MD [address] [place] [address] Referring Physician Cardiology 05/17/23 Jr. Anuja Henson DO [address] [facility] [address] [place] [address] Referring Physician Orthopaedic Surgery 05/17/23 Brody Ibrahim DPM [address] [place] [address] Referring Physician Podiatry 05/17/23 Stores Assistant Relationship Specialty Start Date End Date Jordan Duncan MD [address] [place] [address] PCP - General Family Medicine 10/25/22 Jordan Duncan MD [address] [place] [address] PCP - ACO Reach 08/05/23 Mitch Mello MD [address] [place] [address] Referring Physician Cardiology 05/17/23 Jr. Anuja Henson DO [address] [facility] [address] [place] [address] Referring Physician Orthopaedic Surgery 05/17/23 Brody Ibrahim DPM [address] [place] [address] Referring Physician Podiatry 05/17/23 Stores Assistant Relationship Specialty Start Date End Date Jordan Duncan MD [address] [place] [address] (Fax) PCP - General Family Medicine 10/25/22 Jordan Duncan MD [address] [place] [address] (Fax) PCP - ACO Reach 08/05/23 Mitch Mello MD [address] [place] [address] Referring Physician Cardiology 05/17/23 Jr. Anuja Henson DO [address] [facility] [address] [place] [address] Referring Physician Orthopaedic Surgery 05/17/23 Brody Ibrahim DPM [facility] [place] [address] Referring Physician Podiatry 05/17/23 Stores Assistant Relationship Specialty Start Date End Date Jordan Duncan MD (Fax) PCP - General 07/25/19 Stores Assistant Relationship Specialty Start Date End Date Jordan Duncan MD [address] [place] [address] (Fax) PCP - General Family Medicine 10/25/22 Jordan Duncan MD [address] [place] [address] (Fax) PCP - ACO Reach 08/05/23 Mitch Mello MD [address] [place] [address] Referring Physician Cardiology 05/17/23 Jr. Anuja Henson DO [address] [facility] [address] [place] [address] Referring Physician Orthopaedic Surgery 05/17/23 Brody Ibrahim DPM [address] [place] [address] Referring Physician Podiatry 05/17/23 Stores Assistant Relationship Specialty Start Date End Date Jordan Duncan MD [address] [place] [address] PCP - General Family Medicine 10/25/22 Jordan Duncan MD [address] [place] [address] PCP - ACO Reach 08/05/23 Jr. Anuja Henson, [address] [facility] 150 [place] [address] Referring Physician Orthopaedic Surgery 05/17/23 Brody Ibrahim DPM [address] [place] [address] Referring Physician Podiatry 05/17/23 Anuja Huddleston MD [address] [place] [phone] Referring Physician Family Medicine 07/25/24 Topher Saavedra MD [address] [place] [address] Referring Physician Urology 07/25/24 Kitty Edmond, CATHERINE [address] [facility] [place] [address] Referring Physician Optometry 07/25/24 Stores Assistant Relationship Specialty Start Date End Date Jordan Duncan MD [address] [place] [address] PCP - General Family Medicine 10/25/22 Jordan Duncan MD [address] [place] [address] PCP - ACO Reach 08/05/23 Jr. Anuja Henson DO [address] [facility] [address] [place] [address] Referring Physician Orthopaedic Surgery 05/17/23 Brody Ibrahim DPM [address] [facility] [place] [address] Referring Physician Podiatry 05/17/23 Anuja Huddleston MD [address] [place] [phone] Referring Physician Family Medicine 07/25/24 Topher Saavedra MD [address] [place] [address] Referring Physician Urology 07/25/24 Kitty Edmond, CATHERINE [address] [facility] [place] [address] Referring Physician Optometry 07/25/24 Stores Assistant Relationship Specialty Start Date End Date Jordan Duncan MD [address] [place] [address] (Fax) PCP - General Family Medicine 10/25/22 Jordan Duncan MD [address] [place] [address] (Fax) PCP - ACO Reach 08/05/23 Jr. Anuja Henson DO [address] [place] [address] [place] [address] Referring Physician Orthopaedic Surgery 05/17/23 Brody Ibrahim DPM [address] [facility] [place] [address] Referring Physician Podiatry 05/17/23 Anuja Huddleston MD [address] [place] [phone] (Fax) Referring Physician Family Medicine 07/25/24 Topher Saavedra MD [address] [place] [address] Referring Physician Urology 07/25/24 Kitty Edmond OD [address] [facility] [place] [address] Referring Physician Optometry 07/25/24 Stores Assistant Relationship Specialty Start Date End Date Jordan Duncan MD [address] [place] [address] (Fax) PCP - General Family Medicine 10/25/22 Jordan Duncan MD [address] [place] [address] (Fax) PCP - ACO Reach 08/05/23 Jr. Anuja Henson DO [address] [place] [address] [place] [address] Referring Physician Orthopaedic Surgery 05/17/23 Brody Ibrahim DPM [address] [place] [address] Referring Physician Podiatry 05/17/23 Anuja Huddleston MD [address] [place] [phone] Referring Physician Family Medicine 07/25/24 Topher Saavedra MD [address] [place] [address] Referring Physician Urology 07/25/24 Kitty Edmond OD [address] [facility] [place] [address] Referring Physician Optometry 07/25/24 Stores Assistant Relationship Specialty Start Date End Date Jordan Duncan MD [address] [place] [address] (Fax) PCP - General Family Medicine 10/25/22 Jordan Duncan MD [address] [place] [address] (Fax) PCP - ACO Reach 08/05/23 Jr. Anuja Henson DO [address] [place] [address] [place] [address] Referring Physician Orthopaedic Surgery 05/17/23 Brody Ibrahim DPM [address] [place] [address] Referring Physician Podiatry 05/17/23 Anuja Huddleston MD [address] [place] [phone] Referring Physician Family Medicine 07/25/24 Topher Saavedra MD [address] [place] [address] Referring Physician Urology 07/25/24 Kitty Edmond OD [address] [place] [address] [place] [address] Referring Physician Optometry 07/25/24 Stores Assistant Relationship Specialty Start Date End Date Jordan Duncan MD [address] [facility] 100 [place] [address] PCP - General Family Medicine 10/25/22 Jordan Duncan MD [address] [facility] 100 [place] [address] PCP - ACO Reach 08/05/23 Jr. Anuja Henson DO [address] [place] [address] [place] [address] Referring Physician Orthopaedic Surgery 05/17/23 Brody Ibrahim DPM [address] [place] [address] Referring Physician Podiatry 05/17/23 Anuja Huddleston MD [address] [place] [phone] (Fax) Referring Physician Family Medicine 07/25/24 Topher Saavedra MD [address] [place] [address] Referring Physician Urology 07/25/24 Kitty Edmond OD [address] [place] [address] Referring Physician Optometry 07/25/24 Stores Assistant Relationship Specialty Start Date End Date Jordan Duncan MD [address] [place] [address] (Fax) PCP - General Family Medicine 10/25/22 Jordan Duncan MD [address] [place] [address] (Fax) PCP - ACO Reach 08/05/23 Jr. Anuja Henson DO [address] [place] [address] [place] [address] Referring Physician Orthopaedic Surgery 05/17/23 Brody Ibrahim DPM [address] [place] [address] Referring Physician Podiatry 05/17/23 Anuja Huddleston MD [address] [place] [phone] (Fax) Referring Physician Family Medicine 07/25/24 Topher Saavedra MD [address] [place] [address] Referring Physician Urology 07/25/24 Kitty Edmond, CATEHRINE [address] [facility] [place] [address] Referring Physician Optometry 07/25/24 Korin Kraft, RN [address] [facility] [address] [place] [address] Registered Nurse Family Medicine 12/24/24 Stores Assistant Relationship Specialty Start Date End Date Jordan Duncan MD [address] [place] [address] PCP - General Family Medicine 10/25/22 Jordan Duncan MD [address] [place] [address] PCP - ACO Reach 08/05/23 Jr. Anuja Henson DO [address] [facility] 150 [place] [address] Referring Physician Orthopaedic Surgery 05/17/23 Brody Ibrahim DPM [address] [facility] [place] [address] Referring Physician Podiatry 05/17/23 Anuja Huddleston MD [address] [place] [phone] Referring Physician Family Medicine 07/25/24 Topher Saavedra MD [address] [place] [address] Referring Physician Urology 07/25/24 Kitty Edmond OD [address] [facility] [place] [address] Referring Physician Optometry 07/25/24 Korin Kraft, ARUN [address] [place] [address] Registered Nurse Family Medicine 12/24/24 Stores Assistant Relationship Specialty Start Date End Date Jordan Duncan MD [address] [place] [address] PCP - General Family Medicine 10/25/22 Jordan Duncan MD [address] [place] [address] PCP - ACO Reach 08/05/23 Jr. Anuja Henson DO [address] [place] [address] Referring Physician Orthopaedic Surgery 05/17/23 Brody Ibrahim DPM [address] [facility] [place] [address] Referring Physician Podiatry 05/17/23 Anuja Huddleston MD [address] [place] [phone] Referring Physician Family Medicine 07/25/24 Topher Saavedra MD [address] [place], [place] [phone] Referring Physician Urology 07/25/24 Kitty Edmond OD [address] [facility] [place] [address] Referring Physician Optometry 07/25/24 Team Status: Inactive Member Role Status Dates Enedina Hargrove DPM MS Attending Provider Active Start: January 01, 2025 End: January 01, 2025 Reason for Visit (unrecogniz ed section and [...] Advice Only 04/09/2024 orthotics 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 male who presents for Foot Callouses. PCP: Dr. Dakota YARBROUGH 03/27/24, A1C: 6.4 (10/04), BS: 132 SS: 14. Reason Comments Diabetic shoe check Juan Miguel Jennings is a 74 y.o. male who presents diabetic shoe check. PCP: Dr. Dakota YARBROUGH 03/27/24, A1C: 6.4 (10/04), BS: 132 SS: 14. Reason Comments Annual Exam Reason Comments Med Refill Goals (unrecognized section and content) Goals may be documented in a n alternate section FOR RECORDS PERTAINING TO PATIENTS WHO ARE [...] BE BASED ON THE PRIMARY CLINICAL RECORDS. [facility] [employer] [facility]. provides no warranty or guarantee of the accuracy or completeness of information in this document.
[2025-01-14 07:51] LABS: Hematocrit 39.4 % (42.0-54.0); Hemoglobin 13.4 g/dL (14.0-18.0); Immature Granulocytes Abs Auto 0.03 10^3/uL (0.00-0.03); Immature Granulocytes Pct Auto 0.4 % (0.0-0.5); Lymphocytes Absolute Auto 1.3 10^3/uL (1.2-3.8); Mean Corpuscular HGB Conc 34.0 g/dL (29.9-35.2); Mean Corpuscular Hemoglobin 32.4 pg (25.9-34.0); Mean Corpuscular Volume 95.4 fL (80.0-94.0); Platelet Count 116 10^3/uL (150-450); Red Blood Count 4.13 10^6/uL (4.70-6.10); White Blood Count 7.3 10^3/uL (4.0-11.0)
== END 2025-01-14 07:18 | disposition home or self-care (01) ==
LOC: LAB 07:18
PROVIDERS: PCP Family Medicine; Visit Provider Urology
DX: E23.7 Disorder of pituitary gland, unspecified (principal)
CPT/HCPCS: 36415; 84403; 85025

== ENCOUNTER 2025-01-23 08:47 | Outpatient (OUT) | payer MEDICARE, SELFPAY ==
--- OUTSIDE RECORDS SUMMARY | 2025-01-23 08:55 | XMS_ITS | CCD ---
Author Organization [facility] Care Team Providers Care Shank Tapper Name Role Phone PHYSICIAN, DEFAULT Unavailable Unavailable PHYSICIAN, DEFAULT Unavailable Unavailable Diego Bartlett Primary Care Provider Jordan Duncan Primary Care Provider Jordan Duncan MD Primary Care Provider JORDAN DUNCAN Primary Care Physician [phone] Jordan Duncan MD Primary Care Provider JORDAN [...] DR OBANDO Admitting Unavailable DARRIUS BOLTON Unavailable ENEDINA HARGROVE Attending Unavailable HIGHLSULAIMAN, PETER Marino Admitting Unavailable HEMEYER ., DR ALATORRE Primary Care Unavailable ENEDINA HARGROVE Attending Unavailable BEENA PETER Marion Admitting Unavailable HEMEYER ., DR ALATORRE Primary Care Unavailable Jordan Duncan MD Primary Care Provider [phone] Mitch Mello MD Unavailable Jr. Anuja Henson DO Unavailable Brody Ibrahim DPM Unavailable Jordan Duncan MD Unavailable Jordan Duncan MD Primary Care Provider Joradn Duncan MD Unavailable [phone] Jordan Duncan MD Primary Care Provider Jordan Duncan MD Unavailable Jordan Duncan MD Primary Care Provider WILLI SANCHEZ Referring Unavailable HEMEENOC, JORDAN Brown Primary Care Unavailable HEMEJORDAN STUBBS Primary Care Unavailable WILLI SANCHEZ Referring Unavailable HEMEENOC, JORDAN Brown Primary Care Unavailable WILLI SANCHEZ Referring Unavailable Anuja Huddleston MD Unavailable Topher Saavedra MD Unavailable [phone] Kitty Edmond OD Unavailable Anuja Huddleston MD Unavailable [phone] BRODY IBRAHIM Attending Unavailable HEMEJORDAN STUBBS Attending Unavailable JORDAN DUNCAN Attending Unavailable EVANGELIST, BRODY Xiao Attending Unavailable EVANGELIST, BRODY Xiao Attending Unavailable BRODY IBRAHIM Attending Unavailable HEMEYERJORDAN Attending Unavailable RUS, BRODY Xiao Attending Unavailable RUS, BRODY Xiao Attending Unavailable BRODY IBRAHIM Attending Unavailable JORDAN DUNCAN Attending Unavailable JORDAN DUNCAN Attending Unavailable Abena DIAS, Korin Unavailable Enedina Hargrove DPM Attending Provider [phone] Enedina Hargrove Attending Unavailable Enedina Hargrove Admitting Unavailable PAUL CLEMONS Attending Unavailable ANUJA HUDDLESTON Attending Unavailable RACHEL ALEJO Attending Unavailable Fernanda Solomon Attending Unavailable SAAVEDRATopher Attending Unavailable SAAVEDRATopher Attending Unavailable SAAVEDRA, Topher R Attending Unavailable SAAVEDRA, Topher R Attending Unavailable SAAVEDRA, Topher R Attending Unavailable SAAVEDRA, Topher R Attending Unavailable Allergies Allergy Classification Reported Allergen(s) Allergy Type Date of Onset Reaction(s) Facility (4 sources) Clindamycin/Linc omycin Propensity to adverse reactions to drug 8 Diarrhea [place], [place] (3 sources) Clindamycin [facility] [employer] (4 sources) glipiZIDE; Translations: [GLIPIZIDE] Drug Allergy 2 Diarrhea [facility]: (20 sources) metFORMIN; Translations: [METFORMIN] Drug Allergy 2 Diarrhea, Unknown [facility]: (20 sources) Pravastatin; Translations: [PRAVASTATIN] Drug Allergy 2 Unknown [facility]: (4 sources) rosuvastatin; Translations: [ROSUVASTATIN] Drug Allergy 2 [facility]: (2 sources) Clindamycin; Translations: [CLINDAMYCIN] Drug Allergy 7 [facility] Rep[facility] (1 source) glipiZIDE Drug Allergy 7 [facility] (1 source) metFORMIN Drug Allergy 7 [facility] (20 sources) Clindamycin Drug Allergy 2 Diarrhea [facility] (20 sources) ezetimibe; Translations: [EZETIMIBE] Drug Allergy 2 Unknown [facility] (20 sources) glipiZIDE Drug Allergy 2 Diarrhea, Unknown [facility] (20 sources) Rosuvastatin calcium Allergy to substance 1 Unknown [facility] Medications Current Medications Medication Drug Class(es) Dates Sig (Normalized) Sig (Original) amLODIPine 5 mg oral tablet (15 sources) Dihydropyridine Calcium Channel Justice Start: 06-08-2024 [...] (20 sources) Muscle Relaxant Start: 04-19-2023 End: 09-28-2025 take 1 tablet by mouth three times [...] 01/16/2025 Active gabapentin 100 mg oral capsule (11 sources) Anti-epileptic Agent Start: 09-18-2024 End: 10-18-2024 [...] mononitrate 30 mg extended release oral tablet (15 sources) Nitrate Vasodilator Start: 06-08-2024 End: 06-08-2025 [...] 02/25/20 Status: Ordered take 2 tablets by [facility] once daily losartan (COZAAR) 25 [...] MG 24 hr tablet Indications: Atherosclerosis of [place] coronary artery of [place] heart without angina pectoris (CMS/HCC) Take 1.5 [...] BID, # 180 cap(s), Refills(s) 3, Pharmacy: [facility]/pharmacy #[id number], 198, cm, 12/05/23 10:49:00 EDT, Height/Length Dosing, 150.3, kg, 12/05/23 10:49:00 EDT, Weight Dosing Start Date: 01/11/24 Status: Ordered Start: 06-18-2022 take 1 capsule by [facility] once daily tamsulosin 0.4 mg Cap 0.4 mg = 1 cap(s), Oral, Daily, # 90 cap(s), Refills(s) 3, Pharmacy: [facility]/pharmacy #[id number], 198, cm, 11/05/22 10:14:00 EDT, Height/Length Dosing, 150, kg, 11/05/22 10:14:00 EDT, Weight Dosing Start Date: 05/26/23 Status: Ordered take 1 capsule by [facility] every twenty-four hours in the [...] q4wk, # 10 mL, Refills(s) 1, Pharmacy: [facility]/pharmacy #[id number], 198, cm, 12/05/23 10:49:00 EDT, Height/Length Dosing, 150.3, kg, 12/05/23 10:49:00 EDT, Weight Dosing Start Date: 03/27/24 Status: Ordered Start: 01-03-2024 testosterone c ypionate 200 mg/mL IM Richelle 400 mg, IntraMuscular, q4wk, # 10 mL, Refills(s) 1, Pharmacy: [facility]/pharmacy #[id number], 198, cm, 12/05/23 10:49:00 EDT, Height/Length Dosing, 150.3, kg, 12/05/23 10:49:00 EDT, Weight Dosing Start Date: 01/03/24 Status: Ordered Start: 06-20-2023 testosterone c ypionate 200 mg/mL IM Richelle 450 mg, IntraMuscular, q4wk, # 10 mL, Refills(s) 1, Pharmacy: [facility]/pharmacy #[id number], 198, cm, 06/20/23 11:05:00 EST, Height/Length Dosing, 149, kg, 06/20/23 11:05:00 EST, Weight Dosing Start Date: 06/20/23 Status: Ordered Start: 05-09-2023 testosterone c ypionate 200 mg/mL IM Richelle 400 mg, IntraMuscular, q4wk, # 10 mL, Refills(s) 1, Pharmacy: [facility]/pharmacy #[id number], 198, cm, 11/05/22 10:14:00 EDT, Height/Length Dosing, 150, kg, 11/05/22 10:14:00 EDT, Weight Dosing Start Date: 05/09/23 Status: Ordered Start: 02-08-2023 testosterone c ypionate 200 mg/mL IM Richelle 400 mg, IntraMuscular, q4wk, # 10 mL, Refills(s) 2, Pharmacy: [facility]/pharmacy #[id number], 198, cm, 11/05/22 10:14:00 EDT, Height/Length Dosing, 150, kg, 11/05/22 10:14:00 EDT, Weight Dosing Start Date: 02/08/23 Status: Ordered Start: 08-27-2022 testosterone c ypionate 200 mg/mL IM Richelle 400 mg, IntraMuscular, q4wk, # 10 mL, Refills(s) 2, Pharmacy: [facility]/pharmacy #[id number], 198, cm, 06/18/22 9:10:00 EST, Height/Length Dosing, 164, kg, 06/18/22 9:10:00 EST, Weight Dosing Start Date: 08/27/22 Status: Ordered testosterone cypionate 200 mg/mL intramuscular solution (17 sources) Start: 02-01-2022 testosterone c ypionate 200 mg/mL intramuscular solution 400 mg = 2 mL, IntraMuscular, q4wk, 400mg once a month, # 10 mL, Refills(s) 3, Pharmacy: [facility]/pharmacy #[id number], 198, cm, 02/01/22 9:53:00 EDT, Height/Length Dosing, 166, kg, 02/01/22 9:53:00 EDT, Weight Dosing Start Date: 02/01/22 Status: Ordered Start: 11-23-2021 testosterone c ypionate 200 mg/mL intramuscular solution 350 mg, IntraMuscular, q4wk, # 10 mL, Refills(s) 1, Pharmacy: [facility]/pharmacy #[id number], 198, cm, 08/03/21 14:37:00 EST, Height/Length Dosing, 166, kg, 08/03/21 14:37:00 EST, Weight Dosing Start Date: 11/23/21 Status: Ordered Start: 08-03-2021 testosterone c ypionate 200 mg/mL intramuscular solution 350 mg, IntraMuscular, q4wk, # 10 mL, Refills(s) 1, Pharmacy: [facility]/pharmacy #[id number], 198, cm, 08/03/21 14:37:00 EST, [...] Date Documented Da te Episodic/Chronic Abdominal pain (4 sources) Indigestion; Translations: [Epigastric pain] 06-18-2024 Episodic [...] Coronary arteriosclerosis; Translations: [Atherosclerotic heart disease of [place] coronary artery without angina pectoris] Onset: 04-08-2017 [...] source) long-term (current) use of anticoagulants; Translations: [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 BUILDER 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 USE ANTICOAGULANTS] Onset: 10-12-2022 Episodic 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 (1 source) 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; Translations: [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 BUILDER CURRENT USE OF ASPIRIN] Onset: 10-12-2022 Episodic 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 (1 source) long-term (current) use of oral hypoglycemic drugs; Translations: [LONGTERM USE ORAL HYPOGLYCEMIC DX] Onset: 10-12-2022 Episodic 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 (1 source) 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 therapy; Translations: [OTH 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 BUILDER CURRENT DRUG THERAPY] Onset: 09-20-2022 Episodic Other [...] Chronic Other diseases of bladder and urethra (16 sources) Overactive bladder; Translations: [Overactive bladder] Onset: [...] knee] Onset: 01-24-20 Resolved : 01-14-2001-13-2023 Chronic Malaise and fatigue (2 sources) Other [...] Foot callus; Translations: [Corns and callosities] Onset: 09-24-1901-11-2023 Episodic Residual codes; unclassified (20 sources) History of cardiac catheterization; Translations: [Other specified postprocedural states] Onset: 05-13-20 Resolved : 01-14-2005-13-2014 Episodic Residual codes; unclassified (20 sources) H/O: anticoagulant therapy; Translations: [Personal history of other drug therapy] Onset: 01-12-2001-01-2019 Episodic Residual codes; unclassified (1 source) Pain, [...] 2.0 % [facility] Eosinophils/100 WBC (Bld) 6.7 % 0.9 - 7.0 % [facility] Erythrocyte distribution width (RBC) [Ratio] 13.2 % 11.0 - 15.0 % [facility] Hematocrit (Bld) [Volume fraction] 39.4 % Low 42.0 - 54.0 % [facility] Hemoglobin (Bld) [Mass/Vol] 13.4 g/dL Low 14.0 - 18.0 g/dL [facility] IMMATURE GRANULOCYTES ABS AUTO 0.03 [facility] Immature granulocytes/100 WBC (Bld) 0.4 % 0.0 - 0.5 % [facility] Interpretation and review of laboratory results Abnormal [facility] LYMPHOCYTES ABSOLUTE AUTO 1.3 [facility] Lymphocytes/100 WBC (Bld) 17.1 % Low 20.5 - 60.0 % [facility] MCH (RBC) [Entitic mass] 32.4 pg 25.9 - 34.0 pg [facility] MCHC (RBC) [Mass/Vol] 34 g/dL 29.9 - 35.2 g/dL [facility] MCV (RBC) [Entitic vol] 95.4 fL High 80.0 - 94.0 fL [facility] MONOCYTES ABSOLUTE AUTO 1 High [facility] Monocytes/100 WBC (Bld) 13.4 % High 1.7 - 12.0 % [facility] NEUTROPHILS ABSOLUTE AUTO 4.5 [facility] Neutrophils/100 WBC (Bld) 62 % 43.0 - 75.0 % [facility] Platelet mean volume (Bld) [Entitic vol] 12.4 fL 9.5 - 13.5 fL [facility] EO # 0.5 [facility] PLT 116 Low [facility] RBC 4.13 Low [facility] WBC 7.3 [facility] 36on 01-08-2025 36 MD Maria G Peralta MA Blood testing ok, continue leqvio. Advised patient of Dr. Huddleston's findings. Patient verbalized understanding and agreed with plan of care. [facility] Efren 01-01-2025 L Specimen: [id number] Received: 01/02/25 Status: PATRICIA Gavinkathy Num: [id number] Spec Type: Surgical Subm Dr: Enedina Hargrove DPM, MS Tissues: A DIGIT AMPUTATION (RIGHT FIFTH TOE) Procedures: HE/3, Gross/Micro L4, Decalcification Age/ Patient Sex Location Account Attending Physician Juan Miguel Jennings 74/M LABELL [id number] Enedina Hargrove DPM, MS SPEC NUM: [id number] RECD: 01/02/25 STATUS: PATRICIA GAVINKathy NUM: [id number] JUANA: 01/01/25 [facility] DR: Enedina Hargrove,DPM, MS ENTERED: 01/02/[address]: Christal,Lab SPEC TYPE: Surgical DEPT: RADHA MILNER ENTERED BY: [id number] RECV BY: [id number] ORDERED: HE/3, Gross/Micro L4, Decalcification ORDERED: HE/3, [...] skin margin submitted in A3. (3, , [id number] A) Microscopic Description Microscopic examination is performed. Specimen: [id number] Received: 01/02/25 Status: PATRICIA Whiteside Num: [id number] Spec Type: Surgical Subm Dr: Enedina Hargrove DPM, MS Tissues: A DIGIT AMPUTATION (RIGHT FIFTH TOE) Procedures: JUVENAL/Aidan, Gross/Micro L4, Decalcification Patient: Juan Miguel Jennings [id number] (Continued) Specimen: [id number] Received: 01/02/25 (Continued) Signed (signature on file) Christiano Lombardi MD 01/07/25 0938 Specimen: [id number] Received: 01/02/25 Status: PATRICIA Whiteside Num: [id number] Spec Type: Surgical Subm Dr: Enedina Hargrove DPM, MS Tissues: A DIGIT AMPUTATION (RIGHT FIFTH TOE) Procedures: 3, Gross/Micro L4, Decalcification Patient: Juan Miguel Jennings [id number] (Continued) Specimen: [id number] Received: 01/02/25 (Continued) CPT Codes 61106, 21157 Specimen: [id number] Received: 01/02/25 Status: PATRICIA Whiteside Num: [id number] Spec Type: Surgical Subm Dr: Enedina Hargrove,KATLIN, MS Tissues: A DIGIT AMPUTATION (RIGHT FIFTH TOE) Procedures: HE/3, Gross/Micro L4, Decalcification Patient: Juan Miguel Jennings [id number] (Continued) Signed (signature on file) Christiano Lombardi MD 01/07/25 0938 Normal [facility] XR FOOT RT MIN 3Von 01-02-20 [place] [address] XRay Report Signed Patient: JUAN MIGUEL JENNINGS MR#: [id number] : 1950 Acct:[id number] Age/Sex: 74 / M ADM Date: 01/01/25 [facility] Dr: Enedina Hargrove D.P.M. Ordering Physician: Enedina Hargrove D.P.M. Date of Service: 01/01/25 Procedure(s): XR foot RT min 3V Accession Number(s): [id number] cc: JORDAN DUNCAN ; Enedina Hargrove D.P.M. [place] [id number] Patient Name: JUAN MIGUEL JENNINGS MRN: [id number] date: 1950 Sex: M Assigned Patient Location: [facility] Current Patient Location: Accession/Order Number: [id number] Exam Date: 01/01/2025 15:03 Report Date: 01/01/2025 [...] Jr., D.O. 01/01/2025 3:04 PM Dictation Location: [place] [address] Electronically authenticated by: [id number] Y Date: 01/01/2025 15:04 Dictated By: John Pike M.D. Signed By: 01/01/25 1506 DD/ 1504 TD/TT: Ornamental Metalwork Designer: [facility] Radiology, Radiologist, MD - 01/01/2025 [place] [address] XRay Report Signed Patient: JUAN MIGUEL JENNINGS MR#: [id number] : 1950 Acct:[id number] Age/Sex: 74 / M ADM Date: 01/01/25 Loc: SURGOUT Attending Dr: Enedina Hargrove D.P.M. Ordering Physician: Enedina Hargrove D.P.M. Date of Service: 01/01/25 Procedure(s): XR foot RT min 3V Accession Number(s): [id number] cc: JORDAN DUNCAN ; Enedina Hargrove D.P.M. The [place] [address] Patient Name: JUAN MIGUEL JENNINGS MRN: [facility]:[id number] date: 1950 Sex: M Assigned Patient Location: [facility] Current Patient Location: Accession/Order Number: [id number] Exam Date: 01/01/2025 15:03 Report Date: 01/01/2025 [...] Jr., D.O. 01/01/2025 3:04 PM Dictation Location: [place] [address] Electronically authenticated by: [id number] Y Date: 01/01/2025 15:04 Dictated By: John Pike M.D. Signed By: 01/01/25 1506 DD/ 1504 TD/TT: Ornamental Metalwork Designer: [facility] Radiology Study observation (narrative) [facility] XR FOOT RT MIN 3VOrdered By: Radiologist Radiology on 01-01-2025 [facility] Work Phone: ALL CBC WITH AUTO DIFFon BASOPHILS ABSOLUTE AUTO 0 [facility] Basophils/100 WBC (Bld) 0.6 % 0.2 - 2.0 % [facility] Eosinophils/100 WBC (Bld) 5.5 % 0.9 - 7.0 % [facility] Erythrocyte distribution width (RBC) [Ratio] 13.2 % 11.0 - 15.0 % [facility] Hematocrit (Bld) [Volume fraction] 40.2 % Low 42.0 - 54.0 % [facility] e Hemoglobin (Bld) [Mass/Vol] 13.8 g/dL Low 14.0 - 18.0 g/dL [facility] IMMATURE GRANULOCYTES ABS AUTO 0.03 [facility] Immature granulocytes/100 WBC (Bld) 0.4 % 0.0 - 0.5 % [facility] Interpretation and review of laboratory results Abnormal [facility] LYMPHOCYTES ABSOLUTE AUTO 1.4 [facility] Lymphocytes/100 WBC (Bld) 19.7 % Low 20.5 - 60.0 % [facility] MCH (RBC) [Entitic mass] 33 pg 25.9 - 34.0 pg [facility] MCHC (RBC) [Mass/Vol] 34.3 g/dL 29.9 - 35.2 g/dL [facility] MCV (RBC) [Entitic vol] 96.2 fL High 80.0 - 94.0 fL [facility] MONOCYTES ABSOLUTE AUTO 0.8 [facility] Monocytes/100 WBC (Bld) 11.2 % 1.7 - 12.0 % [facility] NEUTROPHILS ABSOLUTE AUTO 4.4 [facility] [...] [facility] CHEST 2Von 12-28-2024 [place] [address] XRay Report Signed Patient: JUAN MIGUEL JENNINGS MR#: [id number] : 1950 Acct:[id number] Age/Sex: 74 / M ADM Date: 12/28/24 Loc: PST Attending Dr: Enedina Hargrove D.P.M. Ordering Physician: Enedina Hargrove D.P.M. Date of Service: 12/28/24 Procedure(s): XR chest 2V Accession Number(s): [id number] cc: JORDAN DUNCAN ; Enedina Hargrove D.P.M. The [place] [id number] Patient Name: JAUN MIGUEL JENNINGS MRN: [id number] date: 1950 Sex: M Assigned Patient Location: [facility] Current Patient Location: [facility] Accession/Order Number: [id number] Exam Date: 12/28/2024 15:02 Report Date: 12/28/2024 15:03 At the request of: ENEDINA HARGROVE DPArin Procedure: XR chest 2V Plain film [...] Palacios M.D. 12/28/2024 3:03 PM Dictation Location: [place] [address] Electronically authenticated by: [id number] Y Date: 12/28/2024 15:03 Dictated By: Tomer Palacios D.O. Signed By: 12/28/24 1506 DD/ 150 TD/TT: Ornamental Metalwork Designer: [facility] Radiology, Radiologist, MD - 12/28/2024 [place] [address] XRay Report Signed Patient: JUAN MIGUEL JENNINGS MR#: [id number] : 1950 Acct:[id number] Age/Sex: 74 / M ADM Date: 12/28/24 Loc: [facility] Attending Dr: Enedina Hargrove D.P.M. Ordering Physician: Enedina Hargrove D.P.M. Date of Service: 12/28/24 Procedure(s): XR chest 2V Accession Number(s): [id number] cc: JORDAN DUNCAN ; Enedina Hargrove D.P.M. The [place] [address] Patient Name: JUAN MIGUEL JENNINGS MRN: [facility]:[id number] date: 1950 Sex: M Assigned Patient Location: [facility] Current Patient Location: [facility] Accession/Order Number: [id number] Exam Date: 12/28/2024 15:02 Report Date: 12/28/2024 15:03 At the request of: ENEDINA HARGROVE DPArin Procedure: XR chest 2V Plain film [...] Palacios M.D. 12/28/2024 3:03 PM Dictation Location: [place] [address] Electronically authenticated by: [id number] Y Date: 12/28/2024 15:03 Dictated By: Tomer Palacios D.O. Signed By: 12/28/24 1506 DD/ 1503 TD/TT: Ornamental Metalwork Designer: [facility] Radiology Study observation (narrative) [facility] XR CHEST 2VOrdered By: Radio logist Radiology on 12-28-2024 [facility] Work Phone: ALL LIPID PROFILE (FASTING)o n 12-26-2024 CHOL HDL RATIO 4.3 [facility] Comment on above: 3.3 - 4.4 LOW RISK 4.4 - 7.1 AVERAGE RISK 7.1 - 11.0 MODERATE RISK >11.0 HIGH RISK Cholesterol [Mass/Vol] 172 mg/dL NINF - 200 mg/dL [facility] Cholesterol in HDL [Mass/Vol] 40 mg/dL 40 - 60 mg/dL [facility] Comment on above: > or =60 mg/dl - LOW CARDIOVASCULAR RISK <40 mg/dl - HIGH CARDIOVASCULAR RISK Interpretation and review of laboratory results Abnormal [facility] Magnesium [Mass/Vol] 77 mg/dL [facility] Comment on above: <100 mg/dl OPTIMAL 100-129 mg/dl NEAR OR ABOVE OPTIMAL 130-159 mg/dl BORDERLINE HIGH 160-189 mg/dl HIGH >190 mg/dl VERY HIGH Magnesium [Mass/Vol] 55.8 mg/dL [facility] Triglyceride [Mass/Vol] 279 mg/dL High NINF - 150 mg/dL [facility] Albumin [Mass/Vol] 3.5 g/dL 3.4 - 5.0 g/dL [facility] ALBUMIN GLOBULIN RATIO 1 [facility] ALP [Catalytic activity/Vol] 77 U/L 46 - 116 U/L [facility] ALT [Catalytic activity/Vol] 44 U/L 16 - 63 U/L [facility] AST [Catalytic activity/Vol] 23 U/L 15 - 37 U/L [facility] Bilirubin [Mass/Vol] 0.5 mg/dL 0.2 - 1 .0 mg/dL [facility] Bilirubin.indirect [Mass/Vol] 0.1 mg/dL 0.0 - 0.2 mg/dL [facility] Globulin (S) [Mass/Vol] 3.6 g/dL [facility] Protein [Mass/Vol] 7.1 g/dL 6.4 - 8.2 g/dL [facility] No Panel Informationon 12-26 [facility] Office Visiton 12-21-2024 Follow-up visit [id number] Juan Miguel Jennings 1950 M Date Provider Department Center 12/21/2024 [id number], AD[facility] Family History Problem Relation Age of Onset Heart disease Mother Heart disease Father Family Status - Relation Status Age at Mother Father Level of Service:67144 CT OFFICE/OUTPATIENT ESTABLISHED MOD MDM 30 MIN Normal [facility] CBC W/AUTO DIFFon 10-11-2024 ABS IMMATURE GRAN 0.03 K/uL Normal 0.00-0.06 [facility] Comment on above: Result Comment: UNLE SS OTHERWISE INDICATED, ALL TESTING PERFORMED AT: [facility] [address] [place] [address] VOCAL PERFORMER: JONI NI M.D. CLIA NUMBER [id number] CAP ACCREDITATION AUID [id number] ABS NEUTROPHILS 3.59 K/uL Normal 1.9-8.0 Pathology [...] <= 20 mg/L (U) [Mass/Vol] 150 mg/dL [facility] are Albumin/Creatinine DL <= 1.0 mg/L (U) [Ratio] 300 [facility] Creatinine (U) [Mass/Vol] 50 mg/dL [facility] No Panel Informationon 09-18 Interpretation and review of laboratory results Abnormal [facility] COMPREHENSIVE METABOLIC PANE Efren 09-13-2024 Albumin [Mass/Vol] 4.3 g/dL Normal 3.6-5.1 [facility] Comment on above: Performed By: #### 4 74, 9452 #### [facility] [address] [place] [address], [address] [place] [id number] [employer]: Toan Lara MD #### [id number] #### [facility] [address] [employer]: Parvin Gray Albumin/Globulin [Mass ratio] 1.5 {ratio} Normal 1.0-2.5 [facility] Comment on above: Performed By: #### 4 96, 7599 #### [facility] of [address], [address] [place] [address] [employer]: Tona Lara MD #### [id number] #### [facility] [address] [place], [place] [id number] [employer]: Parvin Gray ALP [Catalytic activity/Vol] 64 U/L Normal 35-144 [facility] Comment on above: Performed By: #### 4 , 7599 #### [facility] of [address], [address] [place] [address] [employer]: Toan Lara MD #### [id number] #### [facility] [address] [place], [place] [address] [employer]: Parvin Gray ALT [Catalytic activity/Vol] 32 U/L Normal 9-46 [facility] Comment on above: Performed By: #### 4 , 7599 #### [facility] of [address], [address] [place] [address] [employer]: Toan Lara MD #### [id number] #### [facility]-[address] [employer]: Parvin Gray AST [Catalytic activity/Vol] 23 U/L Normal 10-35 [facility] Comment on above: Performed By: #### 4 , 7599 #### [facility] of [address], [address] [place] [address] [employer]: Toan Lara MD #### [id number] #### [facility] [address] [place], [place] [address] [employer]: Parvin Gray Bilirubin [Mass/Vol] 0.7 mg/dL Normal 0.2-1.2 [facility] Comment on above: Performed By: #### 4 , 7599 #### [facility] of [address], [address] [place] [address] [employer]: Toan Lara MD #### [id number] #### [facility] [address] [place] [address] [employer]: Parvin Felixi BUN/CREATININE RATIO SEE NOTE: Normal 6-22 [facility] Comment on above: Result Comment: Not Reported: BUN and Creatinine are within reference range. Performed By: #### 4 , 0 #### [facility] [address], [address] [place] [address] Mounter Clarinets: Toan Lara MD #### [id number] #### [facility] [address] [place] [address] Mounter Clarinets: Parvin Ordoñez Flati Calcium [Mass/Vol] 9.3 mg/dL Normal 8.6-10.3 [facility] Comment on above: Performed By: #### 4 , 0 #### [facility] [address], [address] [place] [address] Mounter Clarin[employer]: Toan Lara MD #### [id number] #### [facility] [address] [place] [address] Mounter Clarinets: Parvin R Flati Chloride [Moles/Vol] 105 mmol/L Normal 98-110 [facility] t [facility] Comment on above: Performed By: #### 4 , 0 #### [facility] [address], [address] [place] [address] Mounter Clarin[employer]: Toan Lara MD #### [id number] #### [facility] [address] [place] [address] M[employer]: Parvin Smita Flati CO2 [Moles/Vol] 26 mmol/L Normal 20-32 [facility] Comment on above: Performed By: #### 4 , 0 #### [facility] [address], [address] [place] [address] [employer] Cl[employer]: Toan Lara MD #### [id number] #### [facility] [address] [place] [address] Mounter Clarinets: Parvin Ordoñez Flati Creatinine [Mass/Vol] 0.84 mg/dL Normal 0.70-1.28 [facility] Comment on above: Performed By: #### 4 , 7599 #### [facility] [place] [address] M[employer]: Toan Lara MD #### [id number] #### [facility] Mounter Clarinets: Parvin Gray GFR/1.73 sq M.predicted among non-blacks MDRD (S/P/Bld) [Vol rate/Area] 93 mL/min/{1.73_m2} Normal > OR = 60 [facility] Comment on above: Performed By: #### 4 , 7599 #### [facility] [place] [address] M[employer]: Toan Lara MD #### [id number] #### [facility] [address] Mounter Clarinets: Parvin Gray Globulin (S) [Mass/Vol] 2.8 g/dL Normal 1.9-3.7 [facility] Comment on above: Performed By: #### 4 , 7599 #### [facility] [place] [address] [employer]: Toan Lara MD #### [id number] #### [place] [address] Mounter Clarinets: Parvin Gray Glucose [Mass/Vol] 129 mg/dL High 65-99 [facility] Comment on above: Result Comment: Fasting reference interval For someone without known diabetes, a glucose value >125 mg/dL indicates that they may have diabetes and this should be confirmed with a follow-up test. Performed By: #### 4 , 7599 #### [facility] [place] [address] [employer]: Toan Lara MD #### [id number] #### [facility] [address] [place] [address] Mounter Clarinets: Parvin Ordoñez Flati Potassium [Moles/Vol] 4.7 mmol/L Normal 3.5-5.3 [facility] Comment on above: Performed By: #### 4 , 0 #### [facility] [address], [address] [place] [address] Mounter Clarinets: Toan Lara MD #### [id number] #### [facility] [address] [place] [address] Mounter Clarinets: Parvin Felixi Protein [Mass/Vol] 7.1 g/dL Normal 6.1-8.1 [facility] Comment on above: Performed By: #### 4 , 7599 #### [facility] [place] [address] [employer]: Toan Lara MD #### [id number] #### [facility] [address] [place] [address] Mounter Clarinets: Parvin Ordoñez Flati Sodium [Moles/Vol] 140 mmol/L Normal 135-146 [facility] Comment on above: Performed By: #### 4 , 7599 #### [facility] [place] [address] Mounter Cl[employer]: Toan Lara MD #### [id number] #### [facility] [address] [place] [address] Mounter Clarinets: Parvin Felixi Urea nitrogen [Mass/Vol] 23 mg/dL Normal 7-25 [facility] Comment on above: Performed By: #### 4 , 7599 #### [facility] [address], [address] [place] [address] Mounter Clarinets: Toan Lara MD #### [id number] #### [facility] [address] [place] [address] Mounter Clarinets: Parvin Gray HEMOGLOBIN A1con 09-13-2024 HEMOGLOBIN A1c [...] #### 4 96, 7600 #### [facility] [address], [address] [place] [address] Mounter Clarinets: Toan Lara MD #### [id number] #### [facility] [address] [place], [place] [id number] Mounter Clarinets: Parvin Grya LIPID PANEL, [facility] 09-04 0 Cholesterol [Mass/Vol] 242 mg/dL High <200 [facility] Comment on above: Order Comment: FASTI NG:YES FASTING: YES Performed By: #### 4 96, 0 #### [facility] [address], [address] [place] [address] Mounter Clarinets: Toan Lara MD #### [id number] #### [facility] [address] [place], [place] [id number] Mounter Clarinets: Parvin Gray Cholesterol in HDL [Mass/Vol] 40 mg/dL Normal > OR = 40 [facility] Comment on above: Order Comment: FASTI NG:YES FASTING: YES Performed By: #### 4 96, 0 #### [facility] [address], [address] [place] [address] Mounter Clarinets: Toan Lara MD #### [id number] #### [facility] [address] [place], [place] [id number] Mounter Clarinets: Parvin Gray Cholesterol in LDL [Mass/Vol] 142 [...] LDL-C. Deion TORIBIO et al. MAHENDRA. 2013;310(19): 9413-8884 (http://education.Feedtrace.Labotec/faq/UHW522) Performed By: #### 4 96, 0 #### [facility] [address], [address] [place] [address] Mounter Clarinets: Toan Lara MD #### [id number] #### [facility] [address] [place] [address] Mounter Clarinets: Parvin Gray Cholesterol.total/Ch olesterol in HDL [Mass ratio] 6.1 {ratio} High <5.0 [facility] Comment on above: Order Comment: FASTI NG:YES FASTING: YES Performed By: #### 4 , 0 #### [facility] [address], [address] [place] [address] Mounter Clarinets: Toan Lara MD #### [id number] #### [facility] [address] [place] [address] Mounter Clarinets: Parvin Gray NON HDL CHOLESTEROL 202 mg/dL (calc) High <130 [facility] Comment on above: Order Comment: FASTI NG:YES FASTING: YES Result Comment: For patients with diabetes plus 1 major ASCVD risk factor, treating to a non-HDL-C goal of <100 mg/dL (LDL-C of <70 mg/dL) is considered a therapeutic option. Performed By: #### 4 , 0 #### [facility] [address], [address] [place] [address] Mounter Clarinets: Toan Lara MD #### [id number] #### [facility] [address] [place], [place] [phone] Mounter Clarinets: Parvin Gray Triglyceride [Mass/Vol] 389 mg/dL High <150 [facility] Comment on above: Order Comment: FASTI NG:YES FASTING: YES Result Comment: If a non-fasting specimen was collected, consider repeat triglyceride testing on a fasting specimen if clinically indicated. Aaliyah et al. J. of Clin. Lipidol. 2015;9:129-169. Performed By: #### 4 96, 7600 #### [facility] [address] [facility], [address] [place] [address] Mounter Clarinets: Toan Lara MD #### [id number] #### [facility] [address] [place] [address] Mounter Clarinets: Parvin Gray Office Visiton 07-16-2024 Follow-up visit [id number] AnaliRicardo mansfieldnis 1950 M Date Provider Department Center 07/16/2024 ANUJA ARMSTRONG [place] Family History Problem Relation Age of Onset Heart disease Mother Heart disease Father Family Status - Relation Status Age at Mother Father Level of Service:02661 CT OFFICE/OUTPATIENT ESTABLISHED MOD MDM 30 MIN Normal [facility] 36on 07-09-2024 36 What is his blood pressure running? We can have him try holding amlodipine to see if this will help. We can see how he's feeling at his follow-up appt next week. Normal [facility] CBC W/AUTO DIFFon 06-21-2024 ABS IMMATURE GRAN 0.04 K/uL Normal 0.00-0.06 [facility] Comment on above: Result Comment: UNLE SS OTHERWISE INDICATED, ALL TESTING PERFORMED AT: [facility] [address] [place] [id number] VOCAL PERFORMER: JONI NI M.D. CLIA NUMBER [id number] CAP ACCREDITATION AUID [id number] ABS NEUTROPHILS 5.59 K/uL Normal 1.9-8.0 Pathology [...] 36 Regarding stress test result from 05/17/2024: AUGUSTO Garcia MA Please [...] to start isosorbide and amlodipine. Sent to [facility] per his request. He will see Dr. Huddleston in clinic on 07/16/2024 in [place]. Do you need me to send something to [facility] or did you already? Normal [facility] Documentationon 06-08-2024 Documentation [id number] Juan Miguel Jennings 1950 M Date Provider Department Center 06/08/2024 [id number]-WZLNIRON OROZCO HVCANTICOAG [facility] Family History Problem Relation Age of Onset Heart disease Mother Heart disease Father Family Status - Relation Status Age at Mother Father Reason for Visit and Comments: PharmD Cardiology Consult [Other] Normal [facility] Orders Onlyon 06-02-2024 Orders Only [id number] Juan Miguel Jennings 1950 M Date Provider Department Center 06/02/2024 PAUL JAIMES [facility] Family History Problem Relation Age of Onset Heart disease Mother Heart disease Father Family Status - Relation Status Age at Mother Father [facility] Reminderson 06-01-2024 Reminders Reminders - From: Bertha Winter To: DEBBIE Saavedra; Sent: [...] ) Other: PROVIDER RELATED REMINDER:_ ( ) Marketing Automation Manager ( ) Call Pharmacy ( ) Call Lab ( ) Other: Special Instructions:_ Comments:_ Results in chart for review Normal [facility] ALL CBC WITH AUTO DIFFon BASOPHILS [...] 12.5 fL 9.5 - 13.5 fL [facility] EO # 0.3 [facility] [...] bladder) Your Care Team Attending Physician - Topher SAAVEDRA MD Primary Care Physician - DAKOTA NOLASCO, JORDAN Brown This Is Your Medications List [facility] Prescription (METOPROLOL TARTRATE 100 MG TAB) aspirin [...] URL When: Where: [facility] [address] [place] [address]- Medications What How Much When Instructions Unchanged [...] PSA History of colon cancer Hx of longterm use of blood thinners Hyperlipidemia Hypertension Hypogonadism [...] Ea (more content not included)... Normal [facility] Office/Clinic Noteon 05-21-2024 Urology Office/Clinic Note [...] Has not been able to donate blood, [employer] will not let him. Pt will talk to his oncologist in [place] to see if there is another way he can donate blood. Shares he got CBC drawn on 05/08 at [facility], no results on [facility], called lab and they did not [...] onc to facilitate blood donation/get permission for [employer]. 2. Elevated PSA (R97.20: Elevated prostate specific [...] Urology [address], [place] [address]- Additional Instructions: f/u pending HGB/CBC and blood [...] PSA History of colon cancer Hx of longterm use of blood thinners Hyperlipidemia Hypertension Hypogonadism [...] 1 tab(s), (more content not included)... [facility] [...] [Mass/Vol] 189 mg/dL NINF - 200 mg/dL [facility] Cholesterol in HDL [Mass/Vol] 42 mg/dL 40 - 60 mg/dL [facility] Comment on above: > or =60 mg/dl - LOW CARDIOVASCULAR RISK <40 mg/dl - HIGH CARDIOVASCULAR RISK LDL CHOLESTEROL CALCULATED 124.2 mg/dL [facility] Comment on above: <100 mg/dl OPTIMAL 100-129 mg/dl NEAR OR ABOVE OPTIMAL 130-159 mg/dl BORDERLINE HIGH 160-189 mg/dl HIGH >190 mg/dl VERY HIGH Magnesium [Mass/Vol] 22.8 mg/dL [facility] Triglyceride [Mass/Vol] 114 mg/dL NINF - 150 mg/dL [facility] e Office Visiton 05-02-2024 Follow-up visit [id number] Juan Miguel Jennings 1950 M Date Provider Department Center 05/02/2024 PAUL JAIMES [facility] [place] [facility] Family History Problem Relation Age of Onset Heart disease Mother Heart disease Father Family Status - Relation Status Age at Mother Father Level of Service:71356 CT OFFICE/OUTPATIENT ESTABLISHED MOD MDM 30 MIN Reason for Visit and Comments: Coronary Artery Disease [187] Hypertension [001648] Normal [facility] Ambulatory Visit Summaryon 1 06-23-2023 [...] AM EST With: Where: [facility] [address] [place] [address]- Tuesday 10:45 AM EST With: KERI NOLASCO, Topher Ordoñez Where: [facility] [address] [place] [address]- Medications What How Much When Instructions Unchanged [...] PSA History of colon cancer Hx of longterm use of blood thinners Hyperlipidemia Hypertension Hypogonadism [...] AM EST With: Where: [facility] of [address] [place], [place] [id number]- Tuesday 10:45 AM EST With: Topher SAAVEDRA MD Where: [facility] [address] [facility] [place] [address]- Medications What How Much When Instructions Unchanged [...] PSA History of 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 [address] [place] [address] CLIA No. [id number] CAP Accreditation No. [id number] [employer] Maker: Shaunna Dee M.D. Platelets (Bld) [#/Vol] [...] Sodium [Moles/Vol] 137 mmol/L Normal 133-146 [facility] Urea nitrogen [Mass/Vol] 18 mg/dL Normal 8-23 [facility] CBC W/AUTO DIFFon 10-25-2023 ABS IMMATURE GRAN [...] Inc Comment on above: Result Comment: [facility] [facility] [address] [place] [address] CLIA No. [id number] CAP Accreditation No. [id number] [employer] Maker: Shaunna Dee M.D. Platelets (Bld) [#/Vol] [...] 13 mg/dL Normal 8-23 [facility] POINT OF CARE GLUCOSEon 09-05 Glucose [Mass/Vol] 112 mg/dL Critically high 74-[address] [facility] Comment on above: Performed By: #### P OCGLUC #### [facility] [address] [address] [address] Patria Sanders CBC AUTO DIFFon 09-15-2022 BASO # 0.0 103/ul Normal 0.0-0.1 [facility] Comment on above: Performed By: #### C BC #### [facility] [address] [place] [address] [address] Patria Sanders Basophils/100 WBC (Bld) 0.5 % Normal 0.2-2.0 [facility] Comment on above: Performed By: #### C BC #### [facility] [address] [place] [address] Dr. Patria Sanders EO # 0.3 103/ul Normal 0.0-0.7 [facility] Comment on above: Performed By: #### C BC #### [facility] [address] [place] [address] Dr. Patria Sanders Eosinophils/100 WBC (Bld) 3.2 % Normal 0.9-7.0 [facility] Comment on above: Performed By: #### C BC #### [facility] [address] [place] [address] Dr. Patria Sanders Erythrocyte distribution width (RBC) [Ratio] 14.5 % Normal 11.0-15.0 [facility] Comment on above: Performed By: #### C BC #### [facility] [address] [place] [address] Dr. Patria Sanders Hematocrit (Bld) [Volume fraction] 49.0 % Normal 42.0-54.0 [facility] Comment on above: Performed By: #### C BC #### [facility] [address] [place] [address] Dr. Patria Sanders Hemoglobin (Bld) [Mass/Vol] 16.7 g/dL Normal 14.0-18.0 [facility] Comment on above: Performed By: #### C BC #### [facility] [address] [place] [address] Dr. Patria Sanders IG # 0.03 10e3/ul Normal 0.00-0.03 [facility] Comment on above: Performed By: #### C BC #### [facility] [address] [place] [address] Dr. Patria Sanders IG % 0.4 % Normal 0.0-0.5 [facility] Comment on above: Performed By: #### C BC #### [facility] [address] [place] [address] Dr. Patria Sanders LYMPH # 1.1 103/ul Critically low 1.2-3.8 [facility] Comment on above: Performed By: #### C BC #### [facility] [address] [place] [address] Dr. Patria Sanders Lymphocytes/100 WBC (Bld) 14.5 % Critically low 20.5-60.0 [facility] Comment on above: Performed By: #### C BC #### [facility] [address] [place] [address] Dr. Patria Sanders MANUAL DIFF REQ NO Normal [facility] Comment on above: Performed By: #### C BC #### [facility] [address] [place] [address] Dr. Patria Sanders MCH (RBC) [Entitic mass] 32.6 pg Normal 25.9-34.0 [facility] Comment on above: Performed By: #### C BC #### [facility] [address] [place] [address] Dr. Patria Sanders MCHC (RBC) [Mass/Vol] 34.1 g/dL Normal 29.9-35.2 [facility] Comment on above: Performed By: #### C BC #### [facility] [address] [place] [address] Dr. Patria Sanders MCV (RBC) [Entitic vol] 95.5 fL Critically high 80.0-94.0 [facility] Comment on above: Performed By: #### C BC #### [facility] [address] [place] [address] Dr. Patria Sanders MONO # 0.8 103/ul Normal 0.3-0.8 [facility] Comment on above: Performed By: #### C BC #### [facility] [address] [place] [address] Dr. Patria Sanders Monocytes/100 WBC (Bld) 9.6 % Normal 1.7-12.0 [facility] Comment on above: Performed By: #### C BC #### [facility] [address] [place] [address] Dr. Patria Sanders NEUT # 5.6 103/ul Normal 1.4-6.5 [facility] Comment on above: Performed By: #### C BC #### [facility] [address] [place] [address] Dr. Patria Sanders Neutrophils/100 WBC (Bld) 71.8 % Normal 43.0-75.0 [facility] Comment on above: Performed By: #### C BC #### [facility] [address] [place] [address] Dr. Patria Sanders Platelet mean volume (Bld) [Entitic vol] 11.6 fL Normal 9.5-13.5 [facility] Comment on above: Performed By: #### C BC #### [facility] [address] [place] [address] Dr. Patria Sanders PLT 154 103/ul Normal 150-450 [facility] Comment on above: Performed By: #### C BC #### [facility] [address] [place] [address] Dr. Patria Sanders RBC 5.13 106/ul Normal 4.70-6.10 [facility] Comment on above: Performed By: #### C BC #### [facility] [address] [place] [address] Dr. Patria Sanders WBC 7.8 103/ul Normal 4.0-11.0 [facility] Comment on above: Performed By: #### C BC #### [facility] [address] [place] [address] Dr. Patria Sanders PROF CHEM 8 (BAS METB)on Anion gap [Moles/Vol] 11.4 mmol/L Normal [facility] Comment on above: Performed By: #### B MP #### [facility] [address] [place] [address] Dr. Patria Sanders Calcium [Mass/Vol] 9.1 mg/dL Normal 8.5-10.1 [facility] Comment on above: Performed By: #### B MP #### [facility] [address] [place] [address] Dr. Patria Sanders Chloride [Moles/Vol] 104 mmol/L Normal 98-107 [facility] Comment on above: Performed By: #### B MP #### [facility] [address] [place] [address] Dr. Patria Sanders CO2 [Moles/Vol] 28.7 mmol/L Normal 21.0-32.0 [facility] Comment on above: Performed By: #### B MP #### [facility] [address] [address] [address] Patria Sanders Creatinine [Mass/Vol] 0.80 mg/dL Normal 0.70-1.30 [facility] Comment on above: Performed By: #### B MP #### [facility] [address] [address] [address] Patria Sanders EGFR-AF HUNGARIAN >60 Normal >=60 [facility] Comment on above: Performed By: #### B MP #### [facility] [address] [address] [address] Patria Sanders EGFR-NON AF HUNGARIAN >60 Normal >=60 [facility] Comment on above: Performed By: #### B MP #### [facility] [address] [place] [address] Dr. Patria Sanders Glucose [Mass/Vol] 101 mg/dL Normal 74-106 [facility] Comment on above: Performed By: #### B MP #### [facility] [address] [place] [address] Dr. Patria Sanders Potassium [Moles/Vol] 4.1 mmol/L Normal 3.5-5.1 [facility] Comment on above: Performed By: #### B MP #### [facility] [address] [place] [address] Dr. Patria Sanders Sodium [Moles/Vol] 140 mmol/L Normal 136-145 [facility] Comment on above: Performed By: #### B MP #### [facility] [address] [place] [address] Dr. Patria Sanders Urea nitrogen [Mass/Vol] 11.0 mg/dL Normal 7.0-18.0 [facility] Comment on above: Performed By: #### B MP #### [facility] [address] [address] [address] Patria Sanders Urea nitrogen/Creatinine [Mass ratio] 13.8 mg/mg Normal [facility] Comment on above: Performed By: #### B MP #### [facility] [address] [place] [address] Dr. Patria Sanders PROTIMEon 09-15-2022 INR Coag (PPP) [Relative time] 1.02 {INR} Normal [facility] Comment on above: Performed By: #### P TT, PT #### [facility] [address] [place] [address] Dr. Patria Sanders INR GUIDELINES SEE BELOW Normal [facility] Comment on above: Result Comment: SANTO RED INR: 2.0 - 3.0 CONDITIONS NOT LISTED BELOW 2.5 - 3.5 FOR PROSTHETIC HEART VALVE REPLACEMENT 2.5 - 3.5 RECURRENT THROMBOSIS Performed By: #### P TT, PT #### [facility] [address] [place] [address] Dr. Patria Sanders PT Coag (PPP) [Time] 10.8 s Normal 9.0-11.6 [facility] Comment on above: Performed By: #### P TT, PT #### [facility] [address] [place] [address] Dr. Patria Sanders PTTon 09-15-2022 aPTT Coag (Bld) [Time] 32.0 s Normal 22.3-36.2 [facility] Comment on above: Performed By: #### P TT, PT #### [facility] [address] [place] [address] Dr. Patria Sanders [facility]04 SARS-CoV-2 (COVID-19) RNA NANCY+probe Ql (Unsp spec) Not detected Normal NOT DETECTED [facility] Comment on above: Result Comment: This test is not yet approved or cleared by the [place] FDA. When there are no FDA-approved or cleared tests available, and other criteria are met, FDA can make tests available under an emergency access mechanism called an Emergency Use Authorization (EUA). The EUA for this test is supported by the [place] of Health and Human Service's (HHS's) declaration [...] consistent with SARS-CoV-2. Performed By: #### C [facility] #### [facility] [address] [place], [place] [address] Dr. Patria Sanders Hemoglobin A1Con 09-24-2021 EAG 128.37 Normal [facility] Special[facility] Comment on above: Performed By: #### A 1C #### [facility] [address] [place], [place] [id number] HbA1c (Bld) [Mass fraction] 6.1 % High 4.0-6.0 [facility] Comment on above: Performed By: #### A 1C #### [facility] [address] [place], [place] [id number] Testosteroneon 05-11-2021 TESTOS 314.70 ng/dL Normal 193.00-740.00 [facility] Specialist Comment on above: Performed By: #### T EST #### [facility] [address], [place] [id number] Progress Noteon 10-12-2017 HIM IP Note OR 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 Vital Signs Date Time Vital Sign Value Performing Clinician Facility 09-18-2024 09:24040 Body height 198.1 cm Jordan Duncan MD Work Phone: [facility] 09-18-2024 09:240400 Body mass index (BMI) [Ratio] 40.1 kg/m2 Jordan Duncan MD Work Phone: [facility] 09-18-2024 09:24040 Body weight 157.4 kg Jordan Duncan MD Work Phone: [facility] 09-18-2024 09:24040 Diastolic blood pressure 70 mm[Hg] Jordan Duncan MD Work Phone: [facility] 09-18-2024 09:24-0400 Heart rate 63 /min Jordan Duncan MD Work Phone: [facility] 09-18-2024 09:24-0400 SaO2% (BldA) [Mass fraction] 98 % Jordan Duncan MD Work Phone: [facility] 09-18-2024 09:24-0400 Systolic blood pressure 124 mm[Hg] Jordan Duncan MD Work Phone: [facility] 07-25-2024 10:01-0500 Body height 198.1 cm Jordan Duncan MD Work Phone: [facility] 07-25-2024 10:01-0500 Body mass index (BMI) [Ratio] 39.64 kg/m2 Jordan Duncan MD Work Phone: [facility] 07-25-2024 10:01-0500 Body weight 155.58 kg Jordan Duncan MD Work Phone: [facility] 07-25-2024 10:01-0500 Diastolic blood pressure 74 mm[Hg] Jordan Duncan MD Work Phone: [facility] 07-25-2024 10:01-0500 Heart rate 58 /min Jordan Duncan MD Work Phone: [facility] 07-25-2024 10:01-0500 SaO2% (BldA) [Mass fraction] 98 % Jordan Duncan MD Work Phone: [facility] 07-25-2024 10:01-0500 Systolic blood pressure 120 mm[Hg] Jordan Duncan MD Work Phone: [facility] 07-05-2024 13:45-0500 Diastolic blood pressure 72 mm[Hg] [facility] 07-05-2024 13:45-0500 Heart rate 77 /min [facility] 07-05-2024 13:45-0500 Systolic blood pressure 135 mm[Hg] [facility] 07-05-2024 13:16-0500 Body temperature 97.5 [degF] Mthz Schedule [facility] 07-05-2024 13:16-0500 Respiratory rate 18 /min Mthz Schedule [facility] 05-21-2024 10:44-0500 Blood Pressure Location Topher SAAVEDRA [facility] 05-21-2024 10:44-0500 Body temperature 98.6 [degF] Topher KERI [facility] 05-21-2024 10:44-0500 Diastolic blood pressure 79 mm[Hg] Topher SAAVEDRA [facility] 05-21-2024 10:44-0500 Heart rate 58 /min Topher SAAVEDRA [facility] 05-21-2024 10:44-0500 Respiratory rate 16 /min Topher KERI [facility] 05-21-2024 10:44-0500 Systolic blood pressure 133 mm[Hg] Topherpeter SAAVEDRA [facility] 05-15-2024 10:21-0500 Body height 198.1 cm Brody GUTIÉRREZM Work Phone: [facility] 05-15-2024 10:21-0500 Body mass index (BMI) [Ratio] 40.45 kg/m2 Brody Ibrahim DPM Work Phone: [facility] 05-15-2024 10:21-0500 Body weight 158.76 kg Brody Ibrahim DPM Work Phone: [facility] 04-23-2024 10:41-0500 Body height 198.1 cm Brody Ibrahim DPM Work Phone: [facility] 04-23-2024 10:41-0500 Body mass index (BMI) [Ratio] 40.45 kg/m2 Bordy Ibrahim DPM Work Phone: [facility] 04-23-2024 10:41-0500 Body weight 158.76 kg Brody Ibrahim DPM Work Phone: [facility] 03-29-2024 12:49-0400 Body height 198.1 cm Brody Ibrahim DPM Work Phone: [facility] 03-29-2024 12:49-0400 Body mass index (BMI) [Ratio] 40.45 kg/m2 Brody Ibrahim DPM Work Phone: [facility] 03-29-2024 12:49-0400 Body weight 158.76 kg Brody Ibrahim DPM Work Phone: [facility] 03-27-2024 14:00-0400 Body height 198.1 cm Jordan Duncan MD Work Phone: [facility] 03-27-2024 14:00-0400 Body mass index (BMI) [Ratio] 40.45 kg/m2 Jordan Duncan MD Work Phone: [facility] 03-27-2024 14:00-0400 Body weight 158.76 kg Jordan Duncan MD Work Phone: [facility] 03-27-2024 14:00-0400 Diastolic blood pressure 76 mm[Hg] Jordan Duncan MD Work Phone: [facility] 03-27-2024 14:00-0400 Heart rate 71 /min Jordan Duncan MD Work Phone: [facility] 03-27-2024 14:00-0400 SaO2% (BldA) [Mass fraction] 97 % Jordan Duncan MD Work Phone: [facility] 03-27-2024 14:00-0400 Systolic blood pressure 128 mm[Hg] Jordan Duncan MD Work Phone: [facility] 03-13-2024 09:41-0400 Body height 198.1 cm Brody Ibrahim DPM Work Phone: [facility] 03-13-2024 09:41-0400 Body mass index (BMI) [Ratio] 40.45 kg/m2 Brody Ibrahim DPM Work Phone: [facility] 03-13-2024 09:41-0400 Body weight 158.76 kg Brody Ibrahim DPM Work Phone: [facility] 12-05-2023 10:38-0400 Blood Pressure Location Topherpeter SAAVEDRA [facility] 12-05-2023 10:38-0400 Body temperature 98.6 [degF] Topher KERI [facility] 12-05-2023 10:38-0400 Diastolic blood pressure 86 mm[Hg] Topher KERI [facility] 12-05-2023 10:38-0400 Heart rate 69 /min Topher SAAVEDRA [facility] 12-05-2023 10:38-0400 Respiratory rate 16 /min Topher SAAVEDRA [facility] 12-05-2023 10:38-0400 Systolic blood pressure 136 mm[Hg] Topher SAAVEDRA [facility] 07-19-2023 10:37-0500 Body height 198.1 cm Brody Ibrahim DPM Work Phone: [facility] 07-19-2023 10:37-0500 Body mass index (BMI) [Ratio] 39.87 kg/m2 Brody Ibrahim DPM Work Phone: [facility] 07-19-2023 10:37-0500 Body weight 156.49 kg Brody Ibrahim DPM Work Phone: [facility] 06-20-2023 10:33-0500 Blood Pressure Location Topher SAAVEDRA [facility] 06-20-2023 10:33-0500 Diastolic blood pressure 86 mm[Hg] Topher SAAVEDRA [facility] 06-20-2023 10:33-0500 Heart rate 70 /min Topher SAAVEDRA [facility] 06-20-2023 10:33-0500 Respiratory rate 16 /min Topher SAAVEDRA [facility] 06-20-2023 10:33-0500 Systolic blood pressure 139 mm[Hg] Topher SAAVEDRA [facility] 11-05-2022 10:12-0400 Blood Pressure Location Topher SAAVEDRA [facility] 11-05-2022 10:12-0400 Diastolic blood pressure 78 mm[Hg] Topher SAAVEDRA [facility] 11-05-2022 10:12-0400 Heart rate 68 /min Topher SAAVEDRA [facility] 11-05-2022 10:12-0400 Respiratory rate 16 /min Topher SAAVEDRA [facility] 11-05-2022 10:12-0400 Systolic blood pressure 130 mm[Hg] Topher SAAVEDRA [facility] 11-03-2022 14:34-0400 Body temperature 97.5 [degF] Mthz Schedule [facility] 11-03-2022 14:34-0400 Diastolic blood pressure 77 mm[Hg] Mthz Schedule [facility] 11-03-2022 14:34-0400 Heart rate 72 /min Mthz Schedule [facility] 11-03-2022 14:34-0400 Respiratory rate 18 /min Mthz Schedule [facility] 11-03-2022 14:34-0400 Systolic blood pressure 140 mm[Hg] Mthz Schedule [facility] 06-18-2022 08:55-0500 Blood Pressure Location Topher SAAVEDRA [facility] 06-18-2022 08:55-0500 Diastolic blood pressure 82 mm[Hg] Topher SAAVEDRA [facility] 06-18-2022 08:55-0500 Heart rate 80 /min Topher SAAVEDRA [facility] 06-18-2022 08:55-0500 Respiratory rate 16 /min Topher SAAVEDRA [facility] 06-18-2022 08:55-0500 Systolic blood pressure 132 mm[Hg] Topher SAAVEDRA [facility] 05-17-2022 09:43-0500 Blood Pressure Location Topher SAAVEDRA [facility] 05-17-2022 09:43-0500 Diastolic blood pressure 92 mm[Hg] Topher SAAVEDRA [facility] 05-17-2022 09:43-0500 Heart rate 63 /min Topher SAAVEDRA [facility] 05-17-2022 09:43-0500 Systolic blood pressure 143 mm[Hg] Topher SAAVEDRA [facility] 02-01-2022 09:48-0400 Blood Pressure Location Topherpeter SAAVEDRA [facility] 02-01-2022 09:48-0400 Diastolic blood pressure 66 mm[Hg] Topher SAAVEDRA [facility] 02-01-2022 09:48-0400 Heart rate 84 /min Topher SAAVEDRA [facility] 02-01-2022 09:48-0400 Respiratory rate 16 /min Topher SAAVEDRA [facility] 02-01-2022 09:48-0400 Systolic blood pressure 98 mm[Hg] Topher SAAVEDRA [facility] 01-28-2022 13:48-0400 Diastolic blood pressure 76 mm[Hg] [facility] [employer] 01-28-2022 13:48-0400 Heart rate 56 /min Mthz Lab Schedule [facility] [employer] 01-28-2022 13:48-0400 Respiratory rate 18 /min Mth[facility] Lab Schedule [facility] [employer] 01-28-2022 13:48-0400 Systolic blood pressure 135 mm[Hg] Mthz Lab Schedule [facility] [employer] 01-28-2022 13:25-0400 Body temperature 97.39 [degF] Mthz Lab Schedule [facility] [employer] 10-22-2020 12:25-0400 Body temperature 97.81 [degF] Mthz Schedule [employer] Work Phone: 10-22-2020 12:25-0400 Heart rate 67 /min Mthz Schedule [employer] Work Phone: 07-27-2019 08:03-0500 Body Temperature 96.3 [degF] Mthz Schedule [employer] [place] 07-27-2019 08:03-0500 BP Diastolic 80 mm[Hg] Mthz Schedule [employer]- [place] , [place] 07-27-2019 08:03-0500 BP Systolic 129 mm[Hg] Mthz [facility] [place] 07-27-2019 08:03-0500 Pulse (Heart Rate) 63 /min Mthz Schedule [facility] [place] 07-27-2019 08:03-0500 Respiratory Rate 20 /min Mthz Schedule [facility] [place] 03-13-2019 08:02-0400 Body Temperature 96.69 [degF] Mthz Schedule [facility] [place] 03-13-2019 08:02-0400 BP Diastolic 83 mm[Hg] Mthz Schedule [facility] [place] 03-13-2019 08:02-0400 BP Systolic 162 mm[Hg] Mthz Schedule [facility] [place] 03-13-2019 08:02-0400 Pulse (Heart Rate) 74 /min Mthz Schedule [facility], [place] 03-13-2019 08:02-0400 Respiratory Rate 20 /min [facility] [place] 01-12-2019 08:03-0400 Body Temperature 96.91 [degF] [facility] [place] [facility] [place] 01-12-2019 08:03-0400 BP Diastolic 87 mm[Hg] Mthz Schedule [facility] [place] 01-12-2019 08:03-0400 BP Systolic 152 mm[Hg] Mthz Schedule [facility] , [place] 01-12-2019 08:03-0400 Pulse (Heart Rate) 63 /min [facility], [place] 01-12-2019 08:03-0400 Respiratory Rate 20 /min [facility] Schedule [facility] [place] Encounters Encounter Date Encounter Type Care Provider Facility Start: 02-08-2025 ambulatory Topher Duff ty:[facility] Start: 01-15-2025 End: 01-15-2025 Refill Jordan Duncan MD Work Phone: [facility] Comment on above: Dyspepsia Start: 01-14-2025 End: 01-14-2025 Clinisync Result Encounter Generic External Data Provider [facility] External Department Unsolicited Start: 01-14-2025 End: 01-14-2025 Clinisync Result Encounter Generic External Data Provider [facility] External Department Unsolicited Start: 01-01-2025 End: 01-01-2025 Clinisync Result Encounter Generic External Data Provider [facility] External Department Unsolicited Start: 01-01-2025 End: 01-01-2025 Clinisync Result Encounter Generic External Data Provider [facility] External Department Unsolicited Start: 01-01-2025 End: 01-01-2025 ambulatory Enedina Hargrove [facility] Work Phone: Start: 01-01-2025 End: 01-01-2025 Departed Referred Enedina Hargrove DPM [facility] Start: 12-28-2024 End: 12-28-2024 Clinisync Result [...] Department Unsolicited Start: 12-21-2024 End: 12-21-[address] [facility] Start: 12-21-2024 End: 12-21-2024 Encounter for other preprocedural examination RACHEL [facility] Start: 12-03-2024 End: 12-03-2024 Telephone encounter [...] microalbuminuria, without long-term current use of insulin ([facility]/HCC); Type 2 diabetes mellitus with diabetic polyneuropathy, without long-term current use of insulin ([facility]/HCC); Mixed hyperlipidemia ([facility]); Adverse reaction to statin medication Start: 09-18-2024 [...] Morbid (severe) obesity due to excess calories ([facility]); BMI 39.0-39.9,adult; Type 2 diabetes mellitus with diabetic polyneuropathy, without long-term current use of insulin ([facility]/HCC); Type 2 diabetes mellitus with diabetic microalbuminuria, without long-term current use of insulin ([facility]/HCC); Type 2 diabetes mellitus with foot ulcer (CODE) ([facility]); Non-pressure chronic ulcer of other part of unspecified foot with unspecified severity ([facility]); Partial nontraumatic amputation of right foot ([facility]/HCC); Partial nontraumatic amputation of foot, left ([facility]); Atherosclerosis of [place] coronary artery of [place] heart without angina pectoris (CMS/HCC); History of myocardial infarction (CMS/HCC); Mixed hyperlipidemia (CMS/HCC); Adverse reaction to statin medication; Primary open angle glaucoma of both eyes, unspecified glaucoma stage (CMS/HCC) Start: 07-25-2024 End: 07-25-2024 ambulatory JORDAN DUNCAN Not Available Start: 07-16-2024 End: 07-16-2024 ambulatory [facility] Start: 07-05-2024 End: 07-05-2024 ambulatory WILLI MONTESALILI [facility] Start: 07-05-2024 End: 07-05-2024 Subsequent hospital visit by physician [facility] Fast Track Chair 1 [facility] Comment on above: [...] encounter procedure Topher SAAVEDRA [facility] Start: 05-15-2024 End: 05-15-2024 ambulatory BRODY [...] Start: 05-08-2024 ambulatory Topher SAAVEDRA Facili ty:[facility] [place] Start: 05-02-2024 End: 05-02-2024 ambulatory [facility] Start: 04-23-2024 End: 04-23-2024 Bamboo flowsheet Brody Ibrahim DPM Work Phone: [facility] Start: 04-23-2024 End: 04-23-2024 Bamboo flowsheet Brody Ibrahim DPM Work Phone: [facility] Start: 04-23-2024 End: 04-23-2024 ambulatory BRODY IBRAHIM Not Available Start: 04-23-2024 End: 04-23-2024 Patient encounter procedure Topher SAAVEDRA [facility] Comment on above: Diabetic polyneuropa thy associated with type 2 diabetes mellitus (CMS/HCC) (Primary Dx); Nontraumatic amputation of foot, left (CMS/HCC); Nontraumatic amputation of foot, right (CMS/HCC) Start: 04-09-2024 End: 04-09-2024 Telephone encounter Brody Ibrahim DPM Work Phone: [facility] Comment on above: Advice Only (orthoti cs) Start: 03-29-2024 End: 03-29-2024 Bamboo flowstony Ibrahim DPM Work Phone: [facility] Start: 03-29-2024 End: 03-29-2024 Bamboo flowsheet Brody Ibraihm DPM Work Phone: [facility] Start: 03-29-2024 End: 03-29-2024 Postop follow up visit related to original px Brody Ibrahim DPM Work Phone: [facility] Comment on above: Diabetic polyneuropa thy [...] encounter procedure Topher SAAVEDRA [facility] Start: 03-13-2024 End: 03-13-2024 Bamboo flowsheet Brody Ibrahim DPM Work Phone: [facility] Start: 03-13-2024 End: 03-13-2024 Bamboo flowsheet Brody Ibrahim DPM Work Phone: [facility] Start: 03-13-2024 End: 03-13-2024 Patient encounter procedure Brody Ibrahim DPM Work Phone: [facility] Comment on above: Acquired keratoderma (Primary Dx); Diabetic polyneuropathy associated with type 2 diabetes mellitus (CMS/HCC); Nontraumatic amputation of foot, left (CMS/HCC); Nontraumatic amputation of foot, right (CMS/HCC) Start: 03-13-2024 End: 03-13-2024 ambulatory BRODY IBRAHIM Not Available Start: 03-01-2024 End: 03-01-2024 ambulatory JORDAN DUNCAN [facility] Start: 02-27-2024 End: 02-27-2024 ambulatory Topher SAAVEDRA Facility:[facility] Start: 02-27-2024 End: 02-27-2024 Patient encounter procedure Topher SAAVEDRA [facility] Start: 01-31-2024 End: 01-31-2024 ambulatory Fernanda X Orzech Facility:[facility] Start: 01-31-2024 End: 01-31-2024 Patient encounter procedure Fernanda X Orzech [facility] Start: 01-10-2024 End: 01-10-2024 ambulatory BRODY IBRAHIM Not Available Start: 12-06-2023 End: 12-06-2023 ambulatory BRODY IBRAHIM Not Available Start: 12-05-2023 End: 12-05-2023 Patient encounter procedure Topher SAAVEDRA [facility] Start: 11-09-2023 End: 11-09-2023 ambulatory JORDAN DUNCAN [facility] Start: 11-07-2023 End: 11-07-2023 Patient encounter procedure Topher Smita SAAVEDRA [facility] Start: 10-27-2023 End: 10-27-2023 ambulatory JORDAN DUNCAN Not Available Start: 10-12-2023 End: 10-12-2023 ambulatory JORDAN Stephanie MAICOLENOC Not Available Start: 10-07-2023 End: 10-07-2023 Patient encounter procedure Topher SAAVEDRA [facility] Start: 09-27-2023 End: 09-27-2023 ambulatory BRODY IBRAHIM Not Available Start: 09-09-2023 End: 09-09-2023 Patient encounter procedure Topher Smita SAAVEDRA [facility] Start: 08-15-2023 End: 08-15-2023 Patient encounter procedure Topher Smita SAAVEDRA [facility] Start: 07-19-2023 Bamboo flowsheet Brody Tyler er DPM Work Phone: [facility] Start: 07-19-2023 Bamboo flowsheet Brody Tyler er DPM Work Phone: [facility] Start: 07-19-2023 End: 07-19-2023 Patient encounter procedure Brody Ibrahim DPM Work Phone: [facility] Comment on above: Dermatophytosis of n ail (Primary Dx); Dystrophic nail; Diabetic polyneuropathy associated with type 2 diabetes mellitus (CMS/HCC); Nontraumatic amputation of foot, right (CMS/HCC); Nontraumatic amputation of foot, left (CMS/HCC); Acquired keratoderma Start: 07-18-2023 End: 07-18-2023 Patient encounter procedure Topher SAAVEDRA [facility] [employer] Start: 06-20-2023 End: 06-20-2023 Patient encounter procedure Topher SAAVEDRA [facility] [employer] Start: 05-09-2023 End: 05-09-2023 Patient encounter procedure Topher SAAVEDRA [employer] [facility] [place] Start: 04-04-2023 End: 04-04-2023 Patient encounter procedure Topher SAAVEDRA [facility] [employer] Start: 02-08-2023 End: 02-08-2023 Patient encounter procedure JORDAN DUNCAN [facility] [employer] Start: 01-03-2023 End: 01-03-2023 Patient encounter procedure Topher SAAVEDRA [facility] [employer] Start: 12-03-2022 End: 12-03-2022 Patient encounter procedure Topher SAAVEDRA [facility] [employer] Start: 11-05-2022 End: 11-05-2022 Patient encounter procedure Topher SAAVEDRA [facility] [employer] Start: 11-03-2022 End: 11-03-2022 Subsequent hospital visit by physician [facility] Room [facility] Comment on above: Polycythemia (Primar y Dx) Start: 10-25-2022 End: 10-26-2022 ambulatory ARNOLD RICHELLE Facility:[facility] Start: 10-05-2022 End: 10-06-[address] JORDAN DUNCAN . Facility:[facility] Start: 10-05-2022 End: 10-05-2022 Patient encounter procedure Topher SAAVEDRA [facility] Start: 09-30-2022 End: 09-30-[address] TOPHER SAAVEDRA . Facility:[facility] Start: 09-27-2022 End: 09-28-2022 ambulatory ARNOLD PEOPLES Facility:[facility] Start: 09-20-2022 End: 09-21-2022 ambulatory ENEDINA HARGROVE Facility:[facility] Start: 09-20-2022 Encounter for preprocedural cardiovascular examination DR TOPHER SAAVEDRA . [facility] Start: 09-20-2022 Encounter for preprocedural laboratory examination DR TOPHER SAAVEDRA . [facility] Start: 09-20-2022 Encounter for preprocedural respiratory examination DR TOPHER SAAVEDRA . [facility] Start: 09-15-2022 End: 09-16-[address] TOPHER SAAVEDRA . Facility:[facility] Start: 09-15-2022 End: 09-16-2022 Encounter for preprocedural laboratory examination DR TOPHER SAAVEDRA . Facility:[facility] Start: 09-06-2022 End: 09-06-2022 Patient encounter procedure Topher SAAVEDRA [facility] Start: 06-18-2022 End: 06-18-2022 Patient encounter procedure Topher SAAVEDRA [facility] Start: 05-20-2022 End: 05-21-2022 ambulatory [facility] Facility:[facility] Start: 05-17-2022 End: 05-17-2022 Patient encounter procedure Topher SAAVEDRA [facility] Start: 04-21-2022 End: 04-22-2022 ambulatory [facility] Facility:[facility] Start: 04-21-2022 End: 04-21-2022 Patient encounter procedure Mandy Schaefer [facility] Start: 04-09-2022 End: 04-10-2022 ambulatory [facility] Facility:[facility] Start: 03-31-2022 End: 03-31-2022 Patient encounter procedure Mandy Schaefer [facility] Start: 03-22-2022 End: 03-23-2022 ambulatory [facility] Facility:[facility] Start: 03-03-2022 End: 03-03-2022 Patient encounter procedure Mandy Schaefer [facility] Start: 02-01-2022 End: 02-01-2022 Patient encounter procedure Topher SAAVEDRA [facility] Start: 01-28-2022 End: 01-28-2022 Subsequent hospital visit by physician [facility] MED ONC Comment on above: Polycythemia (Primar y Dx) Start: 01-18-2022 End: 01-18-[address] JORDAN DUNCAN . Facility:[facility] Start: 01-06-2022 End: 01-07-2022 ambulatory [facility] Facility:[facility] Start: 12-21-2021 End: 12-21-2021 Patient encounter procedure Topher SAAVEDRA [facility] Start: 11-23-2021 End: 11-23-2021 Patient encounter procedure Topher SAAVEDRA [facility] Start: 10-26-2021 End: 10-26-2021 Patient encounter procedure Topher SAAVEDRA [facility] Start: 09-28-2021 End: 09-28-2021 Patient encounter procedure Topher SAAVEDRA [facility] Start: 08-31-2021 End: 08-31-2021 Patient encounter procedure Topher SAAVEDRA [facility] Start: 10-22-2020 End: 10-22-2020 [facility] Comment on above: Polycythemia (Primar y Dx) Start: 07-27-2019 End: 07-27-2019 Subsequent hospital visit by physician [facility] Med [facility] Room 9 Schedule [facility] Comment on above: Polycythemia (Primar y Dx) Start: 03-13-2019 End: 03-13-2019 Subsequent hospital visit by physician [facility] Room 9 Schedule [facility] Comment on above: Polycythemia (Primar y Dx) Start: 01-12-2019 End: 01-12-2019 Subsequent hospital visit by physician [facility] Room 9 Schedule [facility] Start: 02-16-2018 End: 02-17-2018 Patient encounter DEFAULT PHYSICIAN Facility:[facility] Procedures Date Procedure Procedure Detail Performing Clinician Start: 01-14-2025 ALL CBC WITH AUTO DIFF Generic External Data Provider Start: 01-01-2025 XR FOOT RT MIN 3V Gener ic External Data Provider Start: 12-28-2024 XR CHEST 2V Generic Ex ternal Data Provider Start: 12-28-2024 ALL CBC WITH AUTO DIFF Generic External Data Provider Start: 12-26-2024 ALL LIPID PROFILE (FASTING) Generic External Data Provider Start: 12-26-2024 [facility] LIVER PANEL Generi c External Data Provider Start: 09-18-2024 Creatinine other source Jordan Duncan MD Work Phone: Start: 05-22-2024 ALL CBC WITH AUTO DIFF Generic External Data Provider Start: 05-08-2024 ALL LIPID PROFILE (FASTING) Generic External Data Provider Start: 09-30-2022 Circumcision Topherpeter JENSEN Start: 12-17-2020 Colonoscopy Brody Hector pelayo DPM Work Phone: Start: 05-23-2019 foot surgery Topherpeter JENSEN Start: 05-13-2014 History of placement of stent for coronary artery disease S/P JORY - LCX & RCA ([id number]. kabour) Mthz Schedule BACK SURGERY Topherpeter SAAVEDRA Placement of stent Topher [facility]SEGUERA RE[facility] SURGERY Agustin SAAVEDRA RIGHT VEIN REMOVED F ROM LEG Topher SAAVEDRA Plan of Treatment Date Care Activity Detail Author Start: 12-17-2030 Screening for malignant neoplasm of colon [facility] Start: 09-29-2025 Glaucoma screening Diabetes: Retinopathy Screening [facility] Start: 09-18-2025 Urine screening for protein Diabetes: Urine Protein Screening [facility] Start: 07-25-2025 Medicare Annual Wellness (AWV) Medicare Annual Wellness (AWV) [facility] Start: 02-21-2025 GFR test (Diabetes, CKD 3-4, OR last GFR 15-59) GFR test (Diabetes, CKD 3-4, OR last GFR 15-59) [facility] Start: 02-04-2025 Influenza vaccination Influenza Vaccine (#1) [facility] Start: 12-12-2024 Hemoglobin A1c measurement Diabetes: Hemoglobin A1C [facility] Start: 10-26-2024 End: 10-26-2024 Patient encounter procedure 10/26/2024 1:00 PM EDT Appointment [facility] [address], [place] [id number] phlebotomy [facility] Comment on above: phlebotomy Start: 10-17-2024 End: 10-17-2024 Patient encounter procedure 10/17/2024 1:00 PM EDT Office Visit [facility] [address] [place] [address] Newton Stevenson MD [address] [place] [address] F/U polycythemia, anal cancer [facility] Comment on above: F/U polycythemia, anal cancer Start: 10-04-2024 Urine screening for protein Diabetes: Urine Protein Screening [facility] Start: 09-18-2024 End: 09-18-2024 Patient encounter procedure [facility] CI FM 100 Comment on above: Essential [...] Essential hypertension (CMS/HCC) Expected: 08/25/2024, Expires: 03/27/2025 [facility] Work Phone: Comment on above: Expected: 08/25/2024, Expires: Start: 08-25-2024 End: 03-27-2025 Hemoglobin A1c/Hemoglobin.total in Blood Hemoglobin A1c Lab Routine Type 2 diabetes mellitus with diabetic polyneuropathy, without long-term current use of insulin (CMS/HCC) Expected: 08/25/2024, Expires: 03/27/2025 [facility] Comment on above: Expected: 08/25/2024, Expires: Start: 08-25-2024 End: 03-27-2025 Lipid 1996 panel - Serum or Plasma Lipid panel Lab Routine Mixed hyperlipidemia ([facility]) Expected: 08/25/2024, Expires: 03/27/2025 [facility] Comment on above: Expected: 08/25/2024, Expires: Start: 07-25-2024 End: 07-25-2024 Patient encounter procedure 07/25/2024 11:00 AM EST Office Visit [facility] 100 [address] [facility] [address] [place] [address] Jordan Duncan MD [address] [facility] [address] [place] [address] Encounter for Medicare annual wellness exam; Advance directive in chart; Encounter for screening for other disorder; Screening for alcohol problem; Morbid (severe) obesity due to excess calories ([facility]); Body mass index (BMI) 40.0-44.9, adult ([facility]) [facility] 100 Comment on above: Encounter for Medicare annual wellness e xam; Advance directive in chart; Encounter for screening for other disorder; Screening for alcohol problem; Morbid (severe) obesity due to excess calories ([facility]); Body mass index (BMI) 40.0-44.9, adult ([facility]) Start: 06-21-2024 Hemoglobin A1c measurement Diabetes: Hemoglobin A1C [facility] Start: 05-17-2024 Medicare Annual Wellness (AWV) Medicare Annual Wellness (AWV) [facility] Start: 05-15-2024 End: 05-15-2024 Patient encounter procedure 05/15/2024 10:15 AM EST Office Visit [facility] [address] [place] [phone] Brody Ibrahim DPM [address] [place] [address] [facility] Start: 04-23-2024 End: 04-23-2024 Patient encounter procedure 04/23/2024 11:00 AM EST Office Visit [facility] [address] [place] [address] Brody Ibrahim DPM [address] [place] [address] [facility] Start: 04-09-2024 End: 04-09-2024 Patient encounter procedure 04/09/2024 9:30 AM EST Office Visit [facility] [address] [address] Jordan Duncan MD [address], [place] [phone] (Fax) [facility] 100 Start: 03-29-2024 End: 03-29-2024 Patient encounter procedure 03/29/2024 1:00 PM EDT Office Visit [facility] [address] [place] [address] Brody Ibrahim DPM [address] [place] [address] Arrived [facility] Comment on above: Arrived Start: 03-27-2024 End: 03-27-2024 Patient encounter procedure 03/27/2024 2:00 PM EDT Office Visit [facility] [address] [phone] Jordan Duncan MD [address] [place] [address] (Fax) Type 2 diabetes mellitus with diabetic polyneuropathy, without long-term current use of insulin ([facility]); Essential hypertension ([facility]); Microalbuminuria; Diabetic foot ([facility]); Mixed hyperlipidemia ([facility]); Adverse reaction to statin medication; Former smoker; Morbid obesity ([facility]) [facility] 100 Comment on above: Type 2 diabetes mellitus with diabetic p olyneuropathy, without long-term current use of insulin ([facility]); Essential hypertension ([facility]); Microalbuminuria; Diabetic foot ([facility]); Mixed hyperlipidemia ([facility]); Adverse reaction to statin medication; Former smoker; Morbid obesity ([facility]) Start: 03-13-2024 End: 03-13-2024 Patient encounter procedure 03/13/2024 9:45 AM EDT Office Visit [facility] [address] [place] [phone] Brody Ibrahim DPM [address] [place], [place] [phone] Arrived [facility] Comment on above: Arrived Start: 02-05-2024 COVID-19 Vaccine () COVID-19 Vaccine () [facility] Start: 02-05-2024 Influenza vaccination Influenza Vaccine (#1) [facility] Start: 01-05-2024 Hemoglobin A1c measurement Diabetes: Hemoglobin A1C [facility] Start: 11-26-2023 Glaucoma screening Diabetes: Retinopathy Screening [facility] Start: 10-29-2023 GFR test (Diabetes, CKD 3-4, OR last GFR 15-59) GFR test (Diabetes, CKD 3-4, OR last GFR 15-59) [facility] Start: 10-26-2023 End: 10-26-2023 Patient encounter procedure 10/26/2023 Office Visit Oncology Newton Stevenson MD [address] [place] [address] [facility] Start: 10-12-2023 End: 10-12-2023 Patient encounter procedure 10/12/2023 9:30 AM EDT Office Visit [facility] [address] [place] [address] Jordan Duncan MD [address] [place] [address] (Fax) [facility] Start: 09-27-2023 End: 09-27-2023 Patient encounter procedure 09/27/2023 11:00 AM EDT Procedure Visit [facility] [address] [facility] [place] [phone] Brody Ibrahim DPM [address] [place] [address] [facility] Start: 07-14-2023 Hemoglobin A1c measurement Diabetes: Hemoglobin A1C [facility] Start: 05-02-2023 Annual Wellness Visit (Medicare) Annual Wellness Visit (Medicare) [facility] Start: 10-20-2022 End: 10-20-2022 Patient encounter procedure 10/20/2022 Office Visit Oncology Newton Stevenson MD [address] [address] [facility] Start: 09-24-2022 Hemoglobin A1c measurement A1C test (Diabetic or Prediabetic) [facility] Start: 02-04-2022 Influenza vaccination Flu vaccine (#1) [facility] Start: 11-11-2021 Urine screening for protein [facility] Start: 10-21-2021 End: 10-21-2021 Patient encounter procedure 10/21/2021 Office Visit Oncology Newton Stevenson MD [address] [place] [address] [facility] Start: 10-16-2021 COVID-19 Vaccine (4 - Booster for Pfizer series) COVID-19 Vaccine (4 - Booster for Pfizer series) [facility] Start: 10-14-2021 Lipid panel Lipids [facility] Start: 10-24-2019 End: 10-24-2019 Office Visit [facility] Start: 07-31-2019 End: 07-31-2019 Appointment 07/31/2019 Appointment Infusion Therapy [facility] Start: 04-30-2019 End: 04-30-2019 Appointment 04/30/2019 Appointment Infusion Therapy [facility] Start: 02-04-2019 Influenza vaccination Flu vaccine (#1) [place], [place] Start: 11-26-2018 Annual Wellness Visit (AWV) Annual Wellness Visit (AWV) [facility] Start: 08-17-2017 Creatinine measurement Creatinine monitoring [facility] [employer] Phone: Start: 08-17-2017 Creatinine monitoring Creatinine monitoring [place], [place] Start: 08-17-2017 Potassium monitoring Potassium monitoring [place], [place] Start: 08-04-2017 A1C test (Diabetic or Prediabetic) A1C test (Diabetic or Prediabetic) [place] Start: 08-04-2017 Hemoglobin A1c measurement A1C test (Diabetic or Prediabetic) [facility] Start: 02-10-2017 Abdominal aortic aneurysm screening AAA screen [facility] Start: 02-10-2017 Pneumococcal 65+ years Vaccine (1 of 2 - PCV13) Pneumococcal 65+ years Vaccine (1 of 2 - PCV13) [place] Start: 01-29-2017 Shingles Vaccine (2 of 3) Shingles Vaccine (2 of 3) [facility] Start: 02-10-2015 Annual Wellness Visit (AWV) Annual Wellness Visit (AWV) [place] Start: 2012 Respiratory Syncytial Virus (RSV) or age 60 yrs+ (1 - Risk 60-74 years 1-dose series) Respiratory Syncytial Virus (RSV) or age 60 yrs+ (1 - Risk 60-74 years 1-dose series) [facility] Start: 02-10-2002 Colon cancer screen colonoscopy Colon cancer screen colonoscopy [place], [place] Start: 02-10-2002 Screening for malignant neoplasm of colon Colon cancer screen colonoscopy [facility] [employer] Phone: Start: 02-10-2002 Shingles Vaccine (1 of 2) Shingles Vaccine (1 of 2) [place] Start: 02-10-1997 Screening for malignant neoplasm of colon [facility] Start: 02-10-1971 DTaP/Tdap/Td vaccine (1 - Tdap) DTaP/Tdap/Td vaccine (1 - Tdap) [facility] Start: 02-10-1971 Hepatitis B vaccine (1 of 3 - Risk 3-dose series) Hepatitis B vaccine (1 of 3 - Risk 3-dose series) [place] Start: 02-10-1970 Diabetic microalbuminuria test Diabetic microalbuminuria test [place] Start: 02-10-1970 Diabetic retinal exam Diabetic retinal exam [facility] Start: 02-10-1970 Glaucoma screening Diabetic retinal exam [facility] Start: 02-10-1970 Hepatitis C screening Hepatitis C screen [facility] Start: 02-10-1970 Urine screening for protein Diabetic Alb to Cr ratio (uACR) test [facility] Start: 1964 Depression Screen Depression Screen [facility] Start: 02-10-1963 DTaP/Tdap/Td vaccine (1 - Tdap) DTaP/Tdap/Td vaccine (1 - Tdap) [place] Start: 02-10-1962 [object Object] Diabetic foot exam [place] Start: 02-10-1962 Diabetic foot examination Diabetic foot exam [facility] Start: 02-10-1962 Diabetic retinal exam Diabetic retinal exam [place], [place] Start: 02-10-1962 Lipid panel [facility] Start: 02-10-1962 Lipid screen Lipid screen [place], [place] Start: 1952 Annual Wellness Visit (AWV) Annual Wellness Visit (AWV) [facility] Start: 1952 Hepatitis C screen Hepatitis C screen [place], [place] Start: 1952 Hepatitis C screening Hepatitis C screen [facility] Work Phone: Start: 1950 Screening for malignant neoplasm of colon [facility] End: 07-05-2024 Phlebotomy therapeutic Phlebotomy therapeutic Procedures Routine One Time for 1 Occurrences starting 07/05/2024 until 07/05/2024 [facility] Work Phone: Comment on above: One Time for 1 Occurrences starting 06/08 until 07/05/2024 Immunizations Immunization Date Immunization Notes Care Provider Shania durham 03-28-2024 influenza, seasonal, injectable Brody GUTIÉRREZ Work Phone: [facility] 03-28-2024 Seasonal trivalent influenza vaccine, adjuvanted, preservative free Brody Ibrahim DPM Work Phone: [facility] 03-28-2024 influenza virus vacc ine, unspecified formulation Generic Provider [facility] 02-28-2023 influenza virus vacc ine, unspecified formulation Topher SAAVEDRA [facility] 02-28-2023 Influenza, Seasonal, Quadrivalent, Adjuvanted Brody Ibrahim DPM Work Phone: [facility] 04-16-2022 influenza virus vacc ine, unspecified formulation Topher SAAVEDRA [facility] 04-16-2022 Influenza, Seasonal, Quadrivalent, Adjuvanted Brody Ibrahim DPM Work Phone: [facility] 03-23-2022 Moderna Bivalent Simmons ster Vaccination Brody Ibrahim DPM Work Phone: [facility] 03-23-2022 Moderna SARS-CoV-2 50mcg/0.5mL Booster Brody Ibrahim DPM Work Phone: [facility] 03-23-[address] 12 Years And Older Brody Ibrahim DPM Work Phone: [facility] 03-23-2022 SARS-CoV-2 (COVID-19 ) [id number] Topher SAAVEDRA [facility] 06-18-2021 SARS-CoV-2 (COVID-19 ) mRNA BNT-162b2 vax Topher SAAVEDRA [facility] 05-06-2021 influenza virus vacc ine, unspecified formulation Topher SAAVEDRA [facility] 05-06-2021 Influenza, Seasonal, Quadrivalent, Adjuvanted Brody Ibrahim DPM Work Phone: [facility] 05-06-2021 SARS-CoV-2 (COVID-19 ) Ad26 vaccine, recombinant Topher SAAVEDRA [facility] 08-28-2020 SARS-CoV-2 (COVID-19 ) mRNA BNT-162b2 vax Topher SAAVEDRA [facility] 08-28-2020 SARS-CoV-2, Unspecified Garry Ibrahim DPM Work Phone: [facility] 08-27-2020 Pfizer Purple Cap SARS-CoV-2 Vaccination Brody Ibrahim DPM Work Phone: [facility] 08-08-2020 SARS-CoV-2 (COVID-19 ) mRNA BNT-162b2 vax Topher SAAVEDRA [facility] Comment on above: Result Comment: 2022: [id number] 08-08-2020 SARS-CoV-2, Unspecified Garry Ibrahim DPM Work Phone: [facility] 08-07-2020 Pfizer Purple Cap SARS-CoV-2 Vaccination Brody Ibrahim DPM Work Phone: [facility] 08-04-2020 SARS-CoV-2 (COVID-19 ) Ad26 vaccine, recombinant Topher SAAVEDRA [facility] 03-22-2020 influenza virus vacc ine, unspecified formulation Topher SAAVEDRA [facility] 03-22-2020 Influenza, Seasonal, Quadrivalent, Adjuvanted Brody Ibrahim DPM Work Phone: [facility] 03-06-2019 pneumococcal conjuga te vaccine, 13 valent Topher SAAVEDRA [facility] 03-05-2019 influenza virus vacc ine, unspecified formulation Topher SAAVEDRA [facility] 03-05-2019 influenza, high dose seasonal, preservative-free Brody Rusher DPM Work Phone: [facility] 03-05-2019 pneumococcal polysaccharide vaccine, 23 valent Topher SAAVEDRA [facility] 03-04-2019 Influenza, High-dose Seasonal, Quadrivalent, Preservative Free Brody Rusher DPM Work Phone: [facility] 03-04-2019 pneumococcal polysaccharide vaccine, 23 valent Brody Rusher DPM Work Phone: [facility] 03-03-2018 influenza virus vacc ine, unspecified formulation Topher SAAVEDRA [facility] 03-03-2018 influenza, high dose seasonal, preservative-free Brody Rusher DPM Work Phone: [facility] 03-03-2018 pneumococcal conjuga te vaccine, 13 valent Topher SAAVEDRA [facility] 03-03-2018 pneumococcal polysaccharide vaccine, 23 valent Brody Rusher DPM Work Phone: [facility] 03-02-2018 pneumococcal conjuga te vaccine, 13 valent Brody Rusher DPM Work Phone: [facility] 04-06-2017 influenza virus vacc ine, unspecified formulation Topher SAAVEDRA [facility] 04-06-2017 influenza, injectabl e, quadrivalent, preservative free Brody Rusher DPM Work Phone: [facility] 12-04-2016 pneumococcal polysaccharide vaccine, 23 valent Topher SAAVEDRA [facility] 12-04-2016 zoster vaccine, live Topher SAAVEDRA [facility] 03-06-2016 Influenza Vaccine, unspecified formulation Mthz Schedule [facility] 03-06-2016 influenza virus vacc ine, H5N1, A/[place]/ (national stockpile) Brody Ibrahim DPM Work Phone: [facility] 03-06-2016 influenza virus vacc ine, unspecified formulation Brody Ibrahim DPM Work Phone: [facility] 03-06-2016 Influenza, High-dose Seasonal, Quadrivalent, Preservative Free Brody Ibrahim DPM Work Phone: [facility] 03-06-2016 influenza, unspecifi ed formulation Topher SAAVEDRA [facility] 01-23-2016 influenza virus vacc ine, unspecified formulation Topher SAAVEDRA [facility] 01-23-2016 influenza, injectabl e, quadrivalent, preservative free Brody Ibrahim DPM Work Phone: [facility] 06-06-2015 pneumococcal polysaccharide vaccine, 23 valent Topher SAAVEDRA [facility] 03-23-2014 influenza virus vacc ine, unspecified formulation Topher SAAVEDRA [facility] 03-23-2014 influenza, seasonal, injectable Brody Ibrahim DPM Work Phone: [facility] 04-06-2013 influenza virus vacc ine, unspecified formulation Topher SAAVEDRA [facility] 04-06-2013 influenza, seasonal, injectable Brody Ibrahim DPM Work Phone: [facility] 04-06-2013 zoster vaccine, live Topher SAAVEDRA [facility] 04-05-2013 zoster vaccine, live Brody Ibrahim DPM Work Phone: [facility] 04-21-2009 novel influenza-H1N1 -09, preservative-free, injectable Brody Ibrahim DPM Work Phone: [facility] Payers Date Payer Category Payer Self-pay 2022 Private Health Insurance [employer] [place] [employer] [id number] 2022 Unknown 2017 Medicare [id number] 2017 Medicare xxxxxxxxxxx [id number] 1959 Medicare [id number] 1959 Private Health Insurance [facility] [id number] .[id number] 1952 Unknown [id number] 2.16.840.1.347647.3.579.2 .593 1952 Unknown [id number] 2.16.840.1.655319.3.579.2 .593 1952 Unknown [id number] 2.16.840.1.582733.3.579.2 .593 1952 Unknown [id number] 2.16.840.1.066631.3.579.2 .593 1952 Unknown [id number] 2.16.840.1.195961.3.579.2 .593 1952 Unknown [id number] 2.16.840.1.804526.3.579.2 .593 1952 Unknown [id number] 2.16.840.1.516176.3.579.2 .593 1952 Unknown [id number] 2.16.840.1.556542.3.579.2 .593 1952 Unknown [id number] 2.16.840.1.843203.3.579.2 .593 1952 Unknown [id number] 2.16.840.1.799152.3.579.2 .593 1952 Unknown [id number] 2.16.840.1.630580.3.579.2 .593 1952 Unknown [id number] 2.16.840.1.940099.3.579.2 .593 1952 Unknown [id number] 2.16.840.1.013474.3.579.2 .173 1952 Unknown [id number] 2.16.840.1.486861.3.579.2 .173 1952 Unknown [id number] 2.16.840.1.240114.3.579.2 .173 1952 Unknown [id number] 2.16.840.1.147811.3.579.2 .1259 1952 Unknown [id number] 2.16.840.1.919274.3.579.2 .1259 1952 Unknown [id number] 2.16.840.1.973846.3.579.2 .1259 1952 Unknown [id number] 2.16.840.1.824240.3.579.2 .1259 1952 Unknown [id number] 2.16.840.1.607267.3.579.2 .1258 1952 Unknown [id number] 2.16.840.1.212891.3.579.2 .1258 1952 Unknown [id number] 2.16.840.1.193032.3.579.2 .1258 1952 Unknown [id number] 2.16.840.1.669263.3.579.2 .1258 1952 Unknown [id number] 2.16.840.1.019247.3.579.2 .1258 1952 Unknown [id number] 1950 Unknown [id number] .1258 1950 Unknown [id number] [id number] .1258 1950 Unknown [id number] [id number] .1950 Unknown [id number] 2.16.840.1.804284.3.579.2 .1950 Unknown [id number] [id number] .1950 Unknown [id number] 2.16.840.1.605259.3.579.2 .72 1950 Unknown [id number] 2.16.840.1.382117.3.579.2 .1950 Unknown [id number] 2.16.840.1.827282.3.579.2 .72 1950 Unknown [id number] [id number] .727 Medicare [id number] Unknown [id number] .531 Social History Date Type Detail Facility Start: 10-18-2018 End: 12-06-2023 Tobacco smoking status NHIS Former smoker [place] Start: 08-31-1979 End: 06-06-2012 History of tobacco use Current smoker [place] Start: 10-18-2018 End: 09-18-2024 Cigarettes smoked current (pack per day) - Reported [facility] Start: 10-18-2018 End: 09-18-2024 Alcohol intake No [place] Start: 01-23-2014 End: 11-02-2023 Tobacco Comment quit smoking in 1999 [facility] Start: 1950 Sex Assigned At Not on file [place] [employer], [place] Start: 10-18-2018 End: 11-02-2023 Alcohol intake Current non-drinker of alcohol (finding) [place] Start: 10-22-2020 End: 12-06-2023 Tobacco use and exposure Never used [facility] [employer] Start: 01-18-2022 End: 01-28-2022 Exposure to SARS-CoV-2 (event) Not sure [facility] Start: 08-31-1979 End: 06-06-2012 History of tobacco use Cigarette Smoker [facility] Work Phone: Start: 05-17-2023 End: 01-01-2025 [...] Gender identity Identifies as male gender (finding) [facility] Tobacco smoking stat us NHIS Unknown if ever smoked [facility] Work Phone: Sex Male (finding) [facility] Start: 1950 Sex Assigned At Male F [facility] Functional Status Date Assessment Result Facility 09-18-2024 Patient Health Quest ionnaire 2 item (PHQ-2) [Reported] [facility] 05-21-2024 Functional Status N/A [facility] 12-05-2023 Functional Status N/A [facility] 06-20-2023 Functional Status N/A [facility] 11-05-2022 Functional Status N/A [facility] 06-18-2022 Functional Status N/A [facility] 05-17-2022 Functional Status N/A [facility] 02-01-2022 Functional Status N/A [facility] Clinical Notes 10-22-2020 to 12-21-2024 Telephone Encounter - Laisha Castaneda - 12/03/2024 8:18 AM EDTTelephone Encounter - Laisha Castaneda - 12/03/2024 8:18 AM EDTTelephone Encounter - Jordan uDncan MD - 10/18/2024 12:45 PM EDT Note Date & Type Note Facility 12-21-2024 Note Patient is here for surgery clearance. Patient is having right 5th hammer toe removed. Patient states he feels pretty good, patient is able to every day chores. Patient denies cardiac symptoms at this time [facility] 12-21-2024 Note SUBJECTIVE Reason for Visit: Juan Miguel Jennings is a 74 y.o. year old male patient being seen for surgical clearance. HPI: Juan Miguel Jennings is a 74 y.o. year old male with significant medical history of CAD status post OK with stenting procedures in the past (2006, [...] normal; visually estimate (more content not included)... [facility] 12-03-2024 Telephone encounter Note Bret called requesting a refill on his cyclobenzaprine (Flexeril) [facility] [place] [facility] 12-03-2024 Miscellaneous Notes Bret called requesting a refill on his cyclobenzaprine (Flexeril) [facility] [place] documented in this encounter [facility] 10-18-2024 Telephone encounter Note Reviewed in prescription sent. [facility] 10-18-2024 Miscellaneous Notes Reviewed in prescription [...] is asking for these to go to [facility] in [place]. documented in this encounter [facility] 10-18-2024 Telephone encounter Note Bret called [...] is asking for these to go to [facility] in [place]. [facility] 09-18-2024 History of Present illness Narrative [...] measure for HEDIS. documented in this encounter [facility] 07-25-2024 History of Present illness Narrative [...] Medicine) [facility] as Referring Physician (Orthopaedic Surgery) [...] Yes Vision Screening: Yes, patient sees regular plate sensitizer/freight clerk Hearing Screening: Yes, concerned about hearing loss Cognitive Screening Self Assessment: No concerns rasied by family members, friends, or caretakers Three Word Registration: Zakiya Decker, Finger Clock Drawing: Normal Clock - 2 Three Word Recall: 2/3 words correct - 2 Total Score (0-5 Points): 4 Advance Care Planning Do you have a living will?: Yes Do you have a medical power of mergers and acquisitions attorney?: Yes Who is your medical power of mergers and acquisitions attorney?: Mary Yancey- Daughter Objective : BP [...] Morbid (severe) obesity due to excess calories ([facility]) Patient has lost some weight but with his comorbid conditions he still meets the criteria for morbid obesity. 6. BMI 39.0-39.9,adult Defines the morbid obesity 7. Type 2 diabetes mellitus with diabetic polyneuropathy, without long-term current use of insulin ([facility]) Chronic problem, stable, monitored longitudinally. 8. Type 2 diabetes mellitus with diabetic microalbuminuria, without long-term current use of insulin ([facility]) Chronic problem, stable, monitored longitudinally. 9. Type 2 diabetes mellitus with foot ulcer (CODE) ([facility]) Chronic problem, stable, monitored longitudinally. Primarily managed by Podiatry 10. 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 Partial nontraumatic amputation of right foot ([facility]) Chronic problem, stable, monitored longitudinally.Primarily managed by Podiatry 12. Partial nontraumatic amputation of foot, left ([facility]) Chronic problem, stable, monitored longitudinally.Primarily managed by Podiatry 13. Atherosclerosis of [place] tribe coronary artery of [place] heart without angina pectoris (CMS/HCC) Chronic problem, stable, monitored longitudinally. Comanaged with Cardiology 14. History of myocardial infarction (CMS/HCC) Chronic problem, stable, monitored longitudinally.Comanaged with Cardiology 15. Mixed hyperlipidemia (CMS/HCC) Chronic problem, stable, monitored longitudinally.Comanaged with Cardiology 16. Adverse reaction to statin medication Diagnosis for exclusion [facility] the [facility] measures for statin use. 17. Primary open angle glaucoma of both eyes, unspecified glaucoma stage (CMS/HCC) Managed by Ophthalmology Electronically signed by Jordan Duncan MD on July 25, 2024 documented in this encounter [facility] 07-16-2024 Note [place] [facility] - [facility] Subjective Juan Miguel Jennings is [...] of colon cancer Testicular hypofunction Hx of longterm use of blood thinners Internal derangement of [...] man with prior history of CAD, s/p OK and stenting procedures in the past. He [...] the left s (more content not included)... [facility] 07-05-2024 History of Present illness [...] any dizziness. documented in this encounter [facility] 06-18-2024 Telephone encounter Note Prescription sent [facility] 06-18-2024 Miscellaneous Notes Prescription sent Bret left a message requesting a refill on his Famotidine to [facility] in [place]. documented in this encounter [facility] 06-18-2024 Telephone encounter Note Bret left a message requesting a refill on his Famotidine to [facility] in [place]. [facility] 06-08-2024 Note Contacted patient to discuss lipids management. Reviewed mechanism of action, side effects, and administration of Repatha with patient; pt agreeable to start. Will send RX to assess costs. Of note, pt may qualify for patient assistance [employer]. Will fill out paperwork and send to Cardiology to assist in obtaining signature and income documents. Iron Bess PharmD Cardiology Outpatient Clinical Pharmacist 06/11/24 [facility] 06-08-2024 Note Application for [facility] [employer] filled out for patient. Requires patient signature. Will notify Cardiology support service tech to coordinate signature by patient. Application uploaded to media. Patient will come to Cardiology clinic to sign. Iron Bess PharmD Cardiology Outpatient Clinical Pharmacist 06/14/24 [facility] 06-08-2024 Note [facility]ids Provider: Dr. Huddleston Department: Cardiology Juan Miguel Jennings is a 74 y.o. male with PMH of CAD s/p OK and stents, HTN, HLD, MO w/ CPAP, [...] Bess PharmD Cardiology Outpatient Clinical Pharmacist 06/11/24 [facility] 05-21-2024 Hospital Discharge instructions Patient [...] your health care provider. General instructions Take ipev-epw-uerypwj and prescription medicines only as told by [...] provider. Document Revised: 02/09/2021 Document Reviewed: 02/09/2021 [employer] Patient Education 2023 Sarta. Follow Up Care 02/27/2024 09:12:26 With:KERI NOLASCO, Topher Ordoñez, URL Address: [facility] [address] , [place] [address]- When: Unknown [facility] 05-21-2024 Evaluation + Plan note Diagnostic Tests PendingTestosterone Level Total 05/21/24CBC w/ Auto Diff 05/21/24 [facility] 05-21-2024 Note Patient Education Obstetrics and Gynecology [...] health care provider. General instructions ??? Take hbfj-xps-snzdnwv and prescription medicines only as told by [...] drink, and whe (more content not included)... [facility] 05-15-2024 History of Present illness Narrative [...] Brody Ibrahim DPM documented in this encounter [facility] 05-15-2024 Instructions Brody Ibrahim DPM - 05/15/2024 10:15 AM EST As noted documented in this encounter [facility] 05-02-2024 Note Cardiovascular Medic [facility] SUBJECTIVE Chief Complaint Patient presents with Coronary Artery Disease Hypertension Juan Miguel Jennings is a 74 y.o. male here for follow-up. HPI PMHx: CAD s/p OK and stenting, HTN, HLD, MO and wears [...] of colon cancer Testicular hypofunction Hx of longterm use of blood thinners Internal derangement of [...] Type 2 diabetes mellitus with neurologic complication ([facility]/HCC) Past Medical History: Diagnosis Date Coronary artery disease Diabetes mellitus ([facility]/HCC) Hyperlipidemia Hypertension Sleep apnea Family History [...] Rfl: Physical Exa (more content not included)... [facility] 05-02-2024 Note Patient here for [...] All other systems reviewed and are negative. [facility] 04-23-2024 History of Present illness Narrative Images from the original note were not included. Subjective Patient ID: Juan Miguel Jennings is a 74 y.o. 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 male who presents for Foot Callouses. PCP: Dr. Duncan 03/27/24, A1C: 6.4 (5), BS: 132 SS: [...] Brody Ibrahim DPM documented in this encounter [facility] 04-23-2024 Instructions Brody Ibrahim DPM - 04/23/2024 11:00 AM EST Instructions as noted documented in this encounter [facility] 04-09-2024 Telephone encounter Note Custom orthotics arrived senthil Gruber [facility] 04-09-2024 Miscellaneous Notes Custom orthotics arrived senthil Gruber documented in this encounter [facility] 03-29-2024 History of Present illness Narrative [...] 03/2017 [facility] OTHER SURGICAL HIST[facility] 4 stents Geraldo Stafford [...] Measurements obtained in the weight-bearing position utilizing Tillsternock device. Foam impressions obtained simulated weight-bearing. Patient [...] Brody Ibrahim DPM documented in this encounter [facility] 03-29-2024 Instructions Brody Ibrahim DPM - 03/29/2024 1:00 PM EDT As noted documented in this encounter [facility] 03-27-2024 History of Present illness Narrative [...] with Hgb A1C. Also this is a yvsl-oq-ujco visit for consideration for diabetic shoes. Patient [...] polyneuropathy, without long-term current use of insulin ([facility]) (Primary) Chronic problem, stable, to goal. Patient has multiple podiatric issues. The forms from Podiatry were reviewed. Patient's feet were examined. I concur with the forms from Podiatry. Diabetic shoes are medically indicated. I certify that I had a qoiy-qr-weyd encounter with this patient at todays office visit. Due to this medical condition the patient requires DME. I certify that based on my findings The DME ordered is medically necessary for this patient. This has been discussed with the patient and/or their product representative and mutually agreed upon. See the [...] 5. Partial nontraumatic amputation of right foot ([facility]) Comorbid condition currently being managed by Podiatry 6. Partial nontraumatic amputation of foot, left ([facility]) Comorbid condition currently being managed by Podiatry 7. Venous stasis dermatitis of both lower extremities Chronic problem, stable. Does not appear to be progressing significantly. Discussed the importance of keeping the area moisturized. 8. Type 2 diabetes mellitus with diabetic microalbuminuria, without long-term current use of insulin ([facility]) Chronic problem, stable, to [...] stratification for cardiovascular disease. 10. Essential hypertension ([facility]) In prescribing a renewal [...] changes as able documented in this encounter [facility] 03-13-2024 History of Present illness Narrative [...] Brody Ibrahim DPM documented in this encounter [facility] 03-13-2024 Instructions Brody Ibrahim DPM - 03/13/2024 9:45 AM EDT As noted documented in this encounter [facility] 12-05-2023 Hospital Discharge instructions Patient Education [...] therapy. Follow these instructions at home: Take wdaw-umk-mejuzgd and prescription medicines only as told by [...] provider. Document Revised: 01/22/2021 Document Reviewed: 01/22/2021 [employer] Patient Education 2022 Sarta. Follow Up Care 12/05/2023 07:35:26 With:Topher SAAVEDRA MD, URL Address: [facility] [address] [place] [address] [phone] When: Unknown [facility] 11-07-2023 Hospital Discharge instructions Follow Up Care 11/07/2023 08:41:09 With:Topher SAAVEDRA MD, URL Address: [facility] [address] [place] [address]- [phone] When: Unknown [facility] 07-19-2023 History of Present illness Narrative Images [...] May 2023; effectively healed following treatment at [facility] wound Center. Currently relates no bleeding [...] 2010 [facility] 03/2017 lesions on bottom of both feet, [facility] OTHER SURGICAL HISTORY 4 stents RebeccaGeraldo [...] with wound right foot; effectively managed at [facility] wound care center. Care plan: conservative and [...] Brody Ibrahim DPM documented in this encounter [facility] 07-19-2023 Instructions Brody Ibrahim DPM - 07/19/2023 10:30 AM EST As noted documented in this encounter [facility] 06-20-2023 Hospital Discharge instructions Patient Education [...] therapy. Follow these instructions at home: Take xdju-pgo-bvvfqcj and prescription medicines only as told by [...] provider. Document Revised: 01/22/2021 Document Reviewed: 01/22/2021 [employer] Patient Education 2022 Sarta. Follow Up Care 02/08/2023 12:23:35 With:KERI NOLASCO, Topher Ordoñez, CORNELIAL Address: [facility] [address] [place] [address]- [phone] When: Unknown Comments:6 mos w/ PSA and T level (pt to also get PSA now) [facility] [place] 11-05-2022 Hospital Discharge instructions Patient Education [...] urethra. Follow these instructions at home: Take oytn-vgu-pljrfvj and prescription medicines only as told by [...] provider. Document Revised: 12/09/2021 Document Reviewed: 12/09/2021 [employer] Patient Education 2022 [employer] Follow Up Care 05/17/2022 10:46:35 With:KERI NOLASCO, Topher Ordoñez, URL Address: [facility] [address] , [place] [address]- When: Unknown [facility] [place] 11-03-2022 History of Present illness Narrative Patient [...] Dr for visit documented in this encounter [employer] Work Phone: 09-15-2022 Note EXAM: XR CHEST 2 V HISTORY: Pre-surgery evaluation COMPARISON: None. TECHNIQUE: PA and lateral views of the chest. FINDINGS: The cardiomediastinal silhouette is normal. No focal consolidation is identified. There is no pneumothorax. No pleural effusion is noted. The osseous structures are intact. IMPRESSION: No acute cardiopulmonary process. Electronically authenticated by: DARRIUS BOLTON Date: 2022-09-15 12:26 [facility] 06-18-2022 Hospital Discharge instructions Patient Education [...] urethra. Follow these instructions at home: Take qobc-ige-sxmjgcf and prescription medicines only as told by [...] 05/23/2006 Document Revised: 04/17/2019 Document Reviewed: 06/27/2017 [employer] Patient Education 2020 Sarta. Follow Up Care 06/14/2022 09:33:13 With:KERI NOLASCO, Topher Ordoñez, URL Address: [address] [place] [address] [place] [address]- When: Unknown [facility] 05-17-2022 Hospital Discharge instructions Patient [...] urethra. Follow these instructions at home: Take dpru-dcx-osscevl and prescription medicines only as told by [...] 05/23/2006 Document Revised: 04/17/2019 Document Reviewed: 06/27/2017 [employer] Patient Education 2020 Sarta. Follow Up Care 04/21/2022 09:42:50 With:KERI NOLASCO, RACIEL Rg Address: [facility] [address] , [place] [address]- When: Unknown [facility] 03-23-2022 Note PROCEDURE: XR FOOT [...] authenticated by: BRODY PAYAN Date: 2022-03-23 06:26 [facility] 02-01-2022 Hospital Discharge instructions Patient Education [...] urethra. Follow these instructions at home: Take zodv-trp-tpuowgd and prescription medicines only as told by [...] 05/23/2006 Document Revised: 04/17/2019 Document Reviewed: 06/27/2017 [employer] Patient Education 2020 [employer] Follow Up Care 08/03/2021 15:20:11 With:KERI NOLASCO, Tpoher Ordoñez, URL Address: [address] [place] [address] [place] [address]- When: Unknown [facility] 10-22-2020 History of Present illness [...] complaints documented in this encounter [facility] [employer] Work Phone: Evaluation + Plan note Future Appointments Appointment Date:09/28/2021 09:00:00 AM Scheduled Provider: Location:[facility] Appointment Type:URO Nurse Visit Appointment Date:02/01/2022 09:45:00 AM Scheduled Provider:Topher SAAVEDRA MD Location:[facility] Appointment Type:URO Office Visit [facility] Evaluation + Plan note Future Appointments Appointment Date:10/26/2021 09:00:00 AM Scheduled Provider: Location:[facility] Appointment Type:URO Nurse Visit Appointment Date:02/01/2022 09:45:00 AM Scheduled Provider:Topher SAAVEDRA MD Location[facility] Appointment Type:URO Office Visit [facility] Evaluation + Plan note Future Appointments Appointment Date:11/23/2021 09:00:00 AM Scheduled Provider: Location:[facility] Appointment Type:URO Nurse Visit Appointment Date:02/01/2022 09:45:00 AM Scheduled Provider:Topher SAAVEDRA MD Location:[facility] Appointment Type:URO Office Visit [facility] Evaluation + Plan note Future Appointments Appointment Date:12/21/2021 09:00:00 AM Scheduled Provider: Location:[facility] Appointment Type:URO Nurse Visit Appointment Date:02/01/2022 09:45:00 AM Scheduled Provider:Topher SAAVEDRA MD Location:[facility] Appointment Type:URO Office Visit [facility] Evaluation + Plan note Future Appointments Appointment Date:02/01/2022 09:45:00 AM Scheduled Provider:Topher SAAVEDRA MD Location:[facility] Appointment Type:URO Office Visit Diagnostic Tests PendingTestosterone Level Total 12/21/21 [facility] Evaluation + Plan note Future Appointments Appointment Date:03/01/2022 09:30:00 AM Scheduled Provider: Location:[facility] Appointment Type:URO Nurse Visit Diagnostic Tests PendingTestosterone Level Total 04/06/22PSA Total 03/06/22 [facility] Evaluation + Plan note Future Appointments Appointment Date:03/31/2022 08:15:00 AM Scheduled Provider: Location:[facility] Appointment Type:URO Nurse Visit [facility] Evaluation + Plan note Future Appointments Appointment Date:04/21/2022 09:15:00 AM Scheduled Provider: Location:[facility] Appointment Type:URO Nurse Visit [facility] Evaluation + Plan note Future Appointments Appointment Date:05/19/2022 08:00:00 AM Scheduled Provider:Mandy Schaefer MD Location:[facility] Appointment Type:URO Office Visit Diagnostic Tests PendingPSA Total 04/16/22Testosterone Level Total 04/16/22 [facility] Evaluation + Plan note Future Appointments Appointment Date:06/14/2022 09:00:00 AM Scheduled Provider: Location:[facility] Appointment Type:URO Nurse Visit Appointment Date:11/15/2022 08:45:00 AM Scheduled Provider:Topher SAAVEDRA MD Location:[facility] Appointment Type:URO Office Visit Diagnostic Tests PendingPSA Total 05/17/22Testosterone Level Total 05/17/22 [facility] Evaluation + Plan note Future Appointments Appointment Date:09/06/2022 09:00:00 AM Scheduled Provider: [facility] Type:[facility]O Nurse Visit Appointment Date:11/15/2022 08:45:00 AM Scheduled Provider:Topher SAAVEDRA MD [facility] App[facility] Type:URO Office Visit [facility] Evaluation + Plan note Future Appointments Appointment Date:10/05/2022 09:00:00 AM Scheduled Provider: Location:[facility] [place] Appointment Type:URO Nurse Visit Appointment Date:10/29/2022 08:45:00 AM Scheduled Provider:Topher SAAVEDRA MD Location:[facility] Appointment Type:URO Office Visit Appointment Date:11/05/2022 09:45:00 AM Scheduled Provider:Topher SAAVEDRA MD [facility] Appointment Type:URO Office Visit [facility] Evaluation + Plan note Future Appointments Appointment Date:11/05/2022 09:45:00 AM Scheduled Provider:Topher SAAVEDRA MD Location:[facility] Appointment Type:URO Office Visit [facility] Evaluation + Plan note Future Appointments Appointment Date:12/03/2022 09:15:00 AM Scheduled Provider: Location:[facility] Appointment Type:URO Nurse Visit Diagnostic Tests PendingTestosterone Level Total 11/05/22PSA Total 11/05/22 [facility] Evaluation + Plan note Future Appointments Appointment Date:01/03/2023 08:15:00 AM Scheduled Provider: Location:[facility] Appointment Type:URO Nurse Visit [facility] Evaluation + Plan note Future Appointments Appointment Date:01/31/2023 08:45:00 AM Scheduled Provider: Location:[facility] Appointment Type:URO Nurse Visit [facility] Evaluation + Plan note Future Appointments Appointment Date:03/07/2023 08:45:00 AM Scheduled Provider: Location:[facility] Appointment Type:URO Nurse Visit Appointment Date:04/04/2023 08:45:00 AM Scheduled Provider: Location:[facility] Appointment Type:URO Nurse Visit Appointment Date:05/02/2023 08:45:00 AM Scheduled Provider: Location:[facility] Appointment Type:URO Nurse Visit Appointment Date:05/27/2023 09:45:00 AM Scheduled Provider:Topher SAAVEDRA MD Location:[facility] Appointment Type:URO Office Visit [facility] Evaluation + Plan note Future Appointments Appointment Date:05/02/2023 08:45:00 AM Scheduled Provider: Location:[facility] Appointment Type:URO Nurse Visit Appointment Date:06/20/2023 10:30:00 AM Scheduled Provider:Topher SAAVEDRA MD Location:[facility] Appointment Type:URO Office Visit [facility] Evaluation + Plan note Future Appointments Appointment Date:06/20/2023 10:30:00 AM Scheduled Provider:Topher SAAVEDRA MD Location:[facility] Appointment Type:URO Office Visit Diagnostic Tests PendingTestosterone Level Total 05/09/23 [facility] Evaluation + Plan note Future Appointments Appointment Date:07/18/2023 09:30:00 AM Scheduled Provider: Location:[facility] Appointment Type:URO Nurse Visit Diagnostic Tests PendingPSA Total 06/20/23Testosterone Level Total 06/20/23 [facility] Evaluation + Plan note Future Appointments Appointment Date:08/15/2023 10:00:00 AM Scheduled Provider: Location:[facility] Appointment Type:URO Nurse Visit [facility] Evaluation + Plan note Future Appointments Appointment Date:09/09/2023 08:30:00 AM Scheduled Provider: Location:[facility] Appointment Type:URO Nurse Visit [facility] Evaluation + Plan note Future Appointments Appointment Date:10/07/2023 08:30:00 AM Scheduled Provider: Location:[facility] Appointment Type:URO Nurse Visit [facility] Evaluation + Plan note Future Appointments Appointment Date:11/07/2023 09:00:00 AM Scheduled Provider: Location:[facility] Appointment Type:URO Nurse Visit [facility] Evaluation + Plan note Future Appointments Appointment Date:12/05/2023 10:45:00 AM Scheduled Provider:Topher SAAVEDRA MD Location:[facility] Appointment Type:URO Office Visit [facility] Evaluation + Plan note Future Appointments Appointment Date:01/02/2024 09:00:00 AM Scheduled Provider: Location:[facility] Appointment Type:URO Nurse Visit Diagnostic Tests PendingTestosterone Level Total 12/05/23emoglobin 12/05/23 [facility] Evaluation + Plan note Future Appointments Appointment Date:01/02/2024 09:00:00 AM Scheduled Provider: Location:[facility] Appointment Type:URO Nurse Visit [facility] Evaluation + Plan note Future Appointments Appointment Date:02/27/2024 09:00:00 AM Scheduled Provider: Location:[facility] Appointment Type:URO Nurse Visit [facility] Evaluation + Plan note Future Appointments Appointment Date:03/27/2024 09:00:00 AM Scheduled Provider: Location:[facility] Appointment Type:URO Nurse Visit Appointment Date:04/23/2024 09:30:00 AM Scheduled Provider: Location:[facility] Appointment Type:URO Nurse Visit Appointment Date:05/21/2024 10:45:00 AM Scheduled Provider:Topher SAAVEDRA MD Location:[facility] Appointment Type:URO Office Visit [facility] Evaluation + Plan note Future Appointments Appointment Date:04/23/2024 09:30:00 AM Scheduled Provider: Location:[facility] Appointment Type:URO Nurse Visit Appointment Date:05/21/2024 10:45:00 AM Scheduled Provider:Topher SAAVEDRA MD Location:[facility] Appointment Type:URO Office Visit [facility] Evaluation + Plan note Future Appointments Appointment Date:05/08/2024 09:00:00 AM Scheduled Provider: Location:[facility] Appointment Type:URO Nurse Visit Appointment Date:05/21/2024 10:45:00 AM Scheduled Provider:Topher SAAVEDRA MD Location:[facility] Appointment Type:URO Office Visit [facility] Evaluation note Diagnosis Polycythemia- Primary Polycythemia vera documented in this encounter [employer] Work Phone: evaluation note* Diagnosis Polycythemia- Primary Polycythemia vera documented in this encounter [facility] [employer] Phone: evaluation note* Diagnosis Dermatophytosis of nail- Primary Dystrophic nail Other specified disease of nail Diabetic polyneuropathy associated with type 2 diabetes mellitus ([facility]/HCC) Nontraumatic amputation of foot, right ([facility]/HCC) Nontraumatic amputation of foot, left ([facility]) Acquired keratoderma documented in this encounter [facility] HealthcareEvaluation note* Diagnosis Acquired keratoderma- Primary Diabetic polyneuropathy associated with type 2 diabetes mellitus ([facility]/HCC) Nontraumatic amputation of foot, left ([facility]/HCC) Nontraumatic amputation of foot, right ([facility]) documented in this encounter [facility] HealthcareEvaluation note* Diagnosis Type 2 diabetes mellitus with diabetic polyneuropathy, without long-term current use of insulin ([facility])- Primary Acquired hallux malleus of left foot Acquired hammer toes of both feet Foot callus Corns and callosities Partial nontraumatic amputation of right foot ([facility]) Partial nontraumatic amputation of foot, left ([facility]) Venous stasis dermatitis of both lower extremities Type 2 diabetes mellitus with diabetic microalbuminuria, without long-term current use of insulin ([facility]) Microalbuminuria Proteinuria Essential hypertension ([facility]) Unspecified essential hypertension Mixed hyperlipidemia ([facility]) Mixed hyperlipidemia Adverse reaction to statin medication Former smoker Personal history of tobacco use, presenting hazards to health Morbid obesity ([facility]) Morbid obesity documented in this encounter [facility] HealthcareEvaluation note* Diagnosis Diabetic polyneuropathy associated with type 2 diabetes mellitus ([facility]/HCC)- Primary Nontraumatic amputation of foot, left ([facility]/HCC) Nontraumatic amputation of foot, right ([facility]) documented in this encounter [facility] HealthcareEvaluation note* Diagnosis Diabetic polyneuropathy associated with type 2 diabetes mellitus ([facility]/HCC)- Primary Nontraumatic amputation of foot, left ([facility]/HCC) Nontraumatic amputation of foot, right ([facility]) documented in this encounter [facility] HealthcareEvaluation note* Diagnosis Dyspepsia Dyspepsia and other specified disorders of function of stomach documented in this encounter [facility] HealthcareEvaluation note* Diagnosis Polycythemia- Primary Polycythemia vera documented in this encounter [facility] HealthEvaluation note* Diagnosis Encounter for Medicare annual wellness exam- Primary Advance directive in chart Encounter for screening for other disorder Screening for alcohol problem Screening for alcoholism Morbid (severe) obesity due to excess calories ([facility]) BMI 39.0-39.9,adult Type 2 diabetes mellitus with diabetic polyneuropathy, without long-term current use of insulin ([facility]) Type 2 diabetes mellitus with diabetic microalbuminuria, without long-term current use of insulin ([facility]) Type 2 diabetes mellitus with foot ulcer (CODE) ([facility]) Non-pressure chronic ulcer of other part of unspecified foot with unspecified severity ([facility]) Partial nontraumatic amputation of right foot ([facility]) Partial nontraumatic amputation of foot, left ([facility]) Atherosclerosis of [place] coronary artery of [place] heart without angina pectoris ([facility]) History of myocardial infarction ([facility]) Mixed hyperlipidemia ([facility]) Mixed hyperlipidemia Adverse reaction to statin medication Primary open angle glaucoma of both eyes, unspecified glaucoma stage ([facility]) documented in this encounter [facility] HealthcareEvaluation note* Diagnosis Dyspepsia Dyspepsia and other specified disorders of function of stomach Essential hypertension ([facility]) Unspecified essential hypertension Microalbuminuria Proteinuria Mixed hyperlipidemia ([facility]) Mixed hyperlipidemia Type 2 diabetes mellitus with diabetic microalbuminuria, without long-term current use of insulin ([facility]) Type 2 diabetes mellitus with diabetic polyneuropathy, without long-term current use of insulin ([facility]) documented in this encounter [facility] HealthcareEvaluation note* Diagnosis Essential hypertension ([facility])- Primary Unspecified essential hypertension Microalbuminuria Proteinuria Type 2 diabetes mellitus with diabetic microalbuminuria, without long-term current use of insulin ([facility]) Type 2 diabetes mellitus with diabetic polyneuropathy, without long-term current use of insulin ([facility]) Mixed hyperlipidemia ([facility]) Mixed hyperlipidemia Adverse reaction to statin medication documented in this encounter [facility] HealthcareEvaluation note* Diagnosis Lumbar paraspinal muscle spasm Other symptoms referable to back Dyspepsia Dyspepsia and other specified disorders of function of stomach Type 2 diabetes mellitus with diabetic polyneuropathy, without long-term current use of insulin ([facility]) documented in this encounter [facility] HealthcareEvaluation note* Diagnosis Lumbar paraspinal muscle spasm Other symptoms referable to back documented in this encounter [facility] HealthcareEvaluation noteNo assessment information [facility] [employer] Work Phone: Evaluation note* Diagnosis Dyspepsia Dyspepsia and other specified disorders of function of stomach documented in this encounter [facility] Narrative No data available for this section [facility] Hospital Discharge instructions No data available for this section [facility] progress note No data available for this section [facility] reason for referral (narrative)No reason for referral information [facility] [employer] Work Phone: Summary Purpose Family History No [...] Documents on File Type Date Recorded 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 Advance Directives and Livin g Will Advance Directives and Livin g Will 08/31/2013 9:46 AM Power of Telephone Information Supervisor Power of Telephone Information Supervisor 08/31/2013 9:46 AM Latest Code Status on File Code Status Date Activated Date Inactivated Comments Full Code 08/06/2016 9:06 AM 08/09/2016 5:53 PM Full Code 08/04/2016 9:28 PM 08/06/2016 9:06 AM Full Code 05/15/2015 12:42 PM 05/19/2015 6:52 PM Full Code 05/12/2015 11:22 AM 05/15/2015 12:42 PM Full Code 05/13/2014 2:36 PM 05/13/2014 9:20 PM Documents on File Type Date Recorded 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 ACP-Advance Directive ACP-Power of Telephone Information Supervisor ACP-Advance Directive 08/31/2013 9:46 AM ACP-Power of Telephone Information Supervisor 08/31/2013 9:46 AM Documents on File Type Date Recorded 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 ACP-Advance Directive 08/31/2013 9:46 AM ACP-Power of Telephone Information Supervisor 08/31/2013 9:46 AM Latest Code Status on [...] Documents on File Type Date Recorded 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 Advance Directives and Living Will 11/20/2019 2018-05-09 Living Wi ll Advance Directives and Living Will 11/20/2019 2018-05-09 Power Of Telephone Information Supervisor Documents on File Type Date Recorded 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 ACP-Power of Telephone Information Supervisor 08/31/2013 9:46 AM ACP-Advance Directive 08/31/2013 9:46 [...] content) DATE CREATED AUTHOR 11/24/2017 [facility] DATE CREATED AUTHOR AUTHOR'S ORGANIZ ATION 03/15/2018 [facility] DATE CREATED AUTHOR AUTHOR'S ORGANIZ ATION 09/26/2021 [facility] dical Specialist DATE CREATED AUTHOR AUTHOR'S ORGANIZ ATION 11/13/2022 [facility] DATE CREATED AUTHOR AUTHOR'S ORGANIZ ATION 07/07/2024 [facility] DATE CREATED AUTHOR AUTHOR'S ORGANIZ ATION 09/14/2024 [facility] DATE CREATED AUTHOR AUTHOR'S ORGANIZ ATION 09/19/2024 [facility] dical Specialists EPIC DATE CREATED AUTHOR AUTHOR'S ORGANIZ ATION 10/13/2024 [facility] DATE CREATED AUTHOR AUTHOR'S ORGANIZ ATION 01/08/2025 [facility] DATE CREATED AUTHOR AUTHOR'S ORGANIZ ATION 01/11/2025 [facility] DATE CREATED AUTHOR AUTHOR'S ORGANIZ ATION 01/14/2025 Jonathan Mchugh [facility] Care Team (unrecognized sect ion and content) Shank Tapper Relationship Specialty Start Date End Date Jordan Duncan MD PCP - General 07/25/19 Shank Tapper Relationship Specialty Start Date End Date Jordan Duncan MD [address] [place] [address] PCP - General Family Medicine 10/25/22 Mitch Mello MD [address] [place] [address] Referring Physician Cardiology 05/17/23 Jr. Anuja Henson, 112 [facility] [address] [place] [address] Referring Physician Orthopaedic Surgery 05/17/23 Brody Ibrahim DPM [address] [place], [place] [phone] Referring Physician Podiatry 05/17/23 Shank Tapper Relationship Specialty Start Date End Date Jordan Duncan MD [address] [place] [address] PCP - General Family Medicine 10/25/22 Mitch Mello MD [address] [place] [address] Referring Physician Cardiology 05/17/23 Jr. Anuja Henson, [address] [address] Referring Physician Orthopaedic Surgery 05/17/23 Brody Ibrahim DPM [address] [place] [address] Referring Physician Podiatry 05/17/23 Shank Tapper Relationship Specialty Start Date End Date Jordan Duncan MD [address] [place] [address] (Fax) PCP - General Family Medicine 10/25/22 Jordan Duncan MD [address] [place] [address] (Fax) PCP - ACO Reach 08/05/23 Mitch Mello MD [address] [place] [address] Referring Physician Cardiology 05/17/23 Jr. Anuja Hneson DO [address] [facility] [address] [place] [address] Referring Physician Orthopaedic Surgery 05/17/23 Brody Ibrahim DPM [facility]0 [place] [address] Referring Physician Podiatry 05/17/23 Shank Tapper Relationship Specialty Start Date End Date Jordan Duncan MD [address] [place] [address] (Fax) PCP - General Family Medicine 10/25/22 Jordan Duncan MD [address] [place] [address] (Fax) PCP - ACO Reach 08/05/23 Mitch Mello MD [address] [place] [address] Referring Physician Cardiology 05/17/23 Jr. Anuja Henson DO [address] [facility] [address] [place] [address] Referring Physician Orthopaedic Surgery 05/17/23 Brody Ibrahim DPM [address] [place] [address] Referring Physician Podiatry 05/17/23 Shank Tapper Relationship Specialty Start Date End Date Jordan Duncan MD [address] [place] [phone] (Fax) PCP - General Family Medicine 10/25/22 Jordan Duncan MD [address] [place] [phone] (Fax) PCP - ACO Reach 08/05/23 Mitch Mello MD [address] [place], [place] [phone] Referring Physician Cardiology 05/17/23 Jr. Anuja Henson DO [address] [address] Referring Physician Orthopaedic Surgery 05/17/23 Brody Ibrahim DPM [address] [address] Referring Physician Podiatry 05/17/23 Shank Tapper Relationship Specialty Start Date End Date Jordan Duncan MD [address] [place] [address] (Fax) PCP - General Family Medicine 10/25/22 Jordan Duncan MD [address] [place] [address] PCP - ACO Reach 08/05/23 Mitch Mello MD [address] [place] [address] Referring Physician Cardiology 05/17/23 Jr. Anuja Henson DO [address] [address] Referring Physician Orthopaedic Surgery 05/17/23 Brody Ibrahim DPM [address] [place] [address] Referring Physician Podiatry 05/17/23 Shank Tapper Relationship Specialty Start Date End Date Jordan Duncan MD [address] [place] [address] PCP - General Family Medicine 10/25/22 Jordan Duncan MD [address] [place] [address] PCP - ACO Reach 08/05/23 Mitch Mello MD [address] [place] [phone] Referring Physician Cardiology 05/17/23 Jr. Anuja Henson DO [address] [address] Referring Physician Orthopaedic Surgery 05/17/23 Brody Ibrahim DPM [address] [address] Referring Physician Podiatry 05/17/23 Shank Tapper Relationship Specialty Start Date End Date Jordan Duncan MD [address] [place] [address] (Fax) PCP - General Family Medicine 10/25/22 Jordan Duncan MD [address] [place] [address] (Fax) PCP - ACO Reach 08/05/23 Mitch Mello MD [address] [place] [address] Referring Physician Cardiology 05/17/23 Jr. Anuja Henson DO [address] [facility] [address] [place] [address] Referring Physician Orthopaedic Surgery 05/17/23 Brody Ibrahim DPM [address] [place] [address] Referring Physician Podiatry 05/17/23 Shank Tapper Relationship Specialty Start Date End Date Jordan Duncan MD [address] [place] [address] (Fax) PCP - General Family Medicine 10/25/22 Jordan Duncan MD [address] [place] [address] (Fax) PCP - ACO Reach 08/05/23 Mitch Mello MD [address] [place] [address] Referring Physician Cardiology 05/17/23 Jr. Anuja Henson DO [address] [facility] [address] [place] [address] Referring Physician Orthopaedic Surgery 05/17/23 Brody Ibrahim DPM [address] [facility] [place] [address] Referring Physician Podiatry 05/17/23 Shank Tapper Relationship Specialty Start Date End Date Jordan Duncan MD [address] [place], [place] [phone] (Fax) PCP - General Family Medicine 10/25/22 Jordan Duncan MD [address] [facility] 100 [place] [address] (Fax) PCP - ACO Reach 08/05/23 Mitch Mello MD [address] [place] [address] Referring Physician Cardiology 05/17/23 Jr. Anuja Henson DO [address] [facility] [address] [place] [address] Referring Physician Orthopaedic Surgery 05/17/23 Brody Ibrahim DPM [address] [place] [address] Referring Physician Podiatry 05/17/23 Shank Tapper Relationship Specialty Start Date End Date Jordan Duncan MD [address] [place] [address] (Fax) PCP - General Family Medicine 10/25/22 Jordan Duncan MD [address] [place] [address] (Fax) PCP - ACO Reach 08/05/23 Mitch Mello MD [address] [place] [address] Referring Physician Cardiology 05/17/23 Jr. Anuja Henson, [address] [place] [address] [place] [address] Referring Physician Orthopaedic Surgery 05/17/23 Brody Ibrahim DPM [address] [place] [address] Referring Physician Podiatry 05/17/23 Shank Tapper Relationship Specialty Start Date End Date Jordan Duncan MD [address] [place] [address] (Fax) PCP - General Family Medicine 10/25/22 Jordan Duncan MD [address] [place] [address] PCP - ACO Reach 08/05/23 Mitch Mello MD [address] [place] [address] Referring Physician Cardiology 05/17/23 Jr. Anuja Henson, [address] [place] [address] [place] [address] Referring Physician Orthopaedic Surgery 05/17/23 Brody Ibrahim DPM [address] [place] [address] Referring Physician Podiatry 05/17/23 Shank Tapper Relationship Specialty Start Date End Date Jordan Duncan MD [address] [place] [address] (Fax) PCP - General Family Medicine 10/25/22 Jordan Duncan MD [address] [place] [address] (Fax) PCP - ACO Reach 08/05/23 Mitch Mello MD [address] [place] [address] Referring Physician Cardiology 05/17/23 Jr. Anuja Henson DO [address] [place] [address] Referring Physician Orthopaedic Surgery 05/17/23 Brody Ibrahim DPM [facility] [place] [address] Referring Physician Podiatry 05/17/23 Shank Tapper Relationship Specialty Start Date End Date Jordan Duncan MD (Fax) PCP - General 07/25/19 Shank Tapper Relationship Specialty Start Date End Date Jordan Duncan MD [address] [place] [address] (Fax) PCP - General Family Medicine 10/25/22 Jordan Duncan MD [address] [place] [address] (Fax) PCP - ACO Reach 08/05/23 Mitch Mello MD [address] [place] [address] Referring Physician Cardiology 05/17/23 Jr. Anuja Henson DO [address] [place] [address] Referring Physician Orthopaedic Surgery 05/17/23 Brody Ibrahim DPM [address] [place] [address] Referring Physician Podiatry 05/17/23 Shank Tapper Relationship Specialty Start Date End Date Jordan Duncan MD [address] [place] [address] PCP - General Family Medicine 10/25/22 Jordan Duncan MD [address] [place] [address] PCP - ACO Reach 08/05/23 Jr. Anuja Henson DO [address] [facility] 150 [place] [address] Referring Physician Orthopaedic Surgery 05/17/23 Brody Ibrahim DPM [address] [place] [address] Referring Physician Podiatry 05/17/23 Anuja Huddleston MD [address] [place] [phone] Referring Physician Family Medicine 07/25/24 Topher Saavedra MD [address] [place] [address] Referring Physician Urology 07/25/24 Kitty Edmond OD [address] [place] [address] Referring Physician Optometry 07/25/24 Shank Tapper Relationship Specialty Start Date End Date Jordan Duncan MD [address] [place] [address] (Fax) PCP - General Family Medicine 10/25/22 Jordan Duncan MD [address] [place] [address] (Fax) PCP - ACO Reach 08/05/23 Jr. Anuja Henson DO [address] [place] [address] Referring Physician Orthopaedic Surgery 05/17/23 Brody Ibrahim DPM [address] [place] [address] Referring Physician Podiatry 05/17/23 [place] [address] [place] [phone] (Fax) Referring Physician Family Medicine 07/25/24 Topher Saavedra MD [address] [place] [address] Referring Physician Urology 07/25/24 Kitty Edmond OD [address] [place] [address] Referring Physician Optometry 07/25/24 Shank Tapper Relationship Specialty Start Date End Date Jordan Duncan MD [address] [place] [address] (Fax) PCP - General Family Medicine 10/25/22 Jordan Duncan MD [address] [place] [address] (Fax) PCP - ACO Reach 08/05/23 Jr. Anuja Henson DO [address] [place] [address] Referring Physician Orthopaedic Surgery 05/17/23 Brody Ibrahim DPM 1900 [facility] [place] [phone] Referring Physician Podiatry 05/17/23 [place] [address] [place] [phone] (Fax) Referring Physician Family Medicine 07/25/24 Topher Saavedra MD [address] [place] [phone] Referring Physician Urology 07/25/24 Kitty Edmond OD [address] [place] [address] Referring Physician Optometry 07/25/24 Shank Tapper Relationship Specialty Start Date End Date Jordan Duncan MD [address] [place] [address] (Fax) PCP - General Family Medicine 10/25/22 Jordan Duncan MD [address] [place] [address] (Fax) PCP - ACO Reach 08/05/23 Jr. Anuja Henson DO [address] [place] [address] Referring Physician Orthopaedic Surgery 05/17/23 Brody Ibrahim DPM [address] [place] [address] Referring Physician Podiatry 05/17/23 Anuja Huddleston MD [address] [place] [phone] Referring Physician Family Medicine 07/25/24 Topher Saavedra MD [address] [place] [address] Referring Physician Urology 07/25/24 Kitty Edmond OD [address] [place] [address] Referring Physician Optometry 07/25/24 Shank Tapper Relationship Specialty Start Date End Date Jordan Duncan MD [address] [place] [address] PCP - General Family Medicine 10/25/22 Jordan Duncan MD [address] [place] [address] PCP - ACO Reach 08/05/23 Jr. Anuja Henson DO [address] [place] [address] Referring Physician Orthopaedic Surgery 05/17/23 Brody Ibrahim DPM [address] [place] [address] Referring Physician Podiatry 05/17/23 Anuja Huddleston MD [address] [place] [address] (Fax) Referring Physician Family Medicine 07/25/24 Topher Saavedra MD [address] [place] [address] Referring Physician Urology 07/25/24 Kitty Edmond OD [address] [facility] [place] [address] Referring Physician Optometry 07/25/24 Shank Tapper Relationship Specialty Start Date End Date Jordan Duncan MD [address] [place] [address] (Fax) PCP - General Family Medicine 10/25/22 Jordan Duncan MD [address] [place] [address] (Fax) PCP - ACO Reach 08/05/23 Jr. Anuja Henson DO [address] [place] [address] Referring Physician Orthopaedic Surgery 05/17/23 Brody Ibrahim DPM [address] [place] [address] Referring Physician Podiatry 05/17/23 Anuja Huddleston MD [address] [place] [phone] (Fax) Referring Physician Family Medicine 07/25/24 Topher Saavedra MD [address] [place] [address] Referring Physician Urology 07/25/24 Kitty Edmond, CATHERINE [address] [facility] [place] [address] Referring Physician Optometry 07/25/24 Shank Tapper Relationship Specialty Start Date End Date Jordan Duncan MD [address] [place] [address] PCP - General Family Medicine 10/25/22 Jordan Duncan MD [address] [place] [address] PCP - ACO Reach 08/05/23 Jr. Anuja Henson DO [address] [place] [address] Referring Physician Orthopaedic Surgery 05/17/23 Brody Ibrahim DPM 1900 [facility] [place] [address] Referring Physician Podiatry 05/17/23 Anuja Huddleston MD [address] [place] [phone] Referring Physician Family Medicine 07/25/24 Topher Saavedra MD [address] [place] [address] Referring Physician Urology 07/25/24 Kitty Edmond, CATHERINE [address] [facility] [place] [address] Referring Physician Optometry 07/25/24 Korin Kraft RN [address] [place] [address] Registered Nurse Family Medicine 12/24/24 Shank Tapper Relationship Specialty Start Date End Date Jordan Duncan MD [address] [place] [address] PCP - General Family Medicine 10/25/22 Jordan Duncan MD [address] [place] [address] PCP - ACO Reach 08/05/23 Jr. Anuja Henson DO [address] [place] [address] Referring Physician Orthopaedic Surgery 05/17/23 Brody Ibrahim DPM 1900 [facility] [place] [address] Referring Physician Podiatry 05/17/23 Anuja Huddleston MD [address] [place] [phone] Referring Physician Family Medicine 07/25/24 Topher Saavedra MD [address] [place] [address] Referring Physician Urology 07/25/24 Kitty Edmond OD [address] [place] [address] Referring Physician Optometry 07/25/24 Korin Kraft RN [address] [place] [address] Registered Nurse Family Medicine 12/24/24 Shank Tapper Relationship Specialty Start Date End Date Jordan Duncan MD [address] [place] [address] PCP - General Family Medicine 10/25/22 Jordan Duncan MD [address] [place] [address] PCP - ACO Reach 08/05/23 Jr. 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 [employer] provides no warranty or guarantee of the accuracy or completeness of information in this document.
== END 2025-01-23 08:48 | disposition home or self-care (01) ==
LOC: WC 08:48
PROVIDERS: PCP Family Medicine; Visit Provider Podiatrist Foot & Ankle Surgery
DX: E11.621 Type 2 diabetes mellitus with foot ulcer (principal); L97.522 Non-pressure chronic ulcer of other part of left foot with fat layer exposed
CPT/HCPCS: G0463

== ENCOUNTER 2025-02-12 08:46 | Outpatient (OUT) | payer MEDICARE, SELFPAY ==
--- OUTSIDE RECORDS SUMMARY | 2010-08-31 06:30 | XMS_ITS | Encounter Summary ---
Author Organization [facility] Address [address] [facility], [address] [place] [address] Care Team Providers Care Moisture Tester Name Role Phone Unavailable Primary Care Provider Unavailabl e Encounter Details Date Type Department Care Team (Late Contact Info) Description 08/31/2010 6:30 AM EDT Hospital Encounter [facility] Department [address] [place] [address] Altaf Velázquez MD [address] [place] [address] Social History Tobacco Use Types Packs/Day [...] Info) Description 02/22/2025 1:00 PM EDT Appointment [facility] [address] [place] [address] phlebotomy documented as of this encounter Visit Diagnoses Not on filedocumented in this encounter
--- OUTSIDE RECORDS SUMMARY | 2013-08-17 02:10 | XMS_ITS | Encounter Summary ---
Author Organization [facility] Address [address] [facility], [address] [place] [address] Care Team Providers Care Substitute Teacher Name Role Phone Diego Bartlett MD Primary Care Provider [phone] Encounter Details Date Type Department Care Team (Late st Contact Info) Description 08/17/2013 2:10 AM EDT Hospital Encounter [facility] [phone] Peewee Westfall, DPM [address] [place] [address] Social History Tobacco Use Types Packs/Day Years [...] PM EDT documented as of this encounter Last Filed Vital Signs Vital Sign Reading Time Taken Comments Blood Pressure 119/71 08/17/2013 8:02 AM EDT Pulse 56 08/17/2013 8:02 AM EDT Temperature - - Respiratory Rate - - Oxygen Saturation 95% 08/17/2013 8:02 AM EDT Inhaled Oxygen Concentration - - Weight - - Height - - Body Mass Index - - documented in this encounter Plan of Treatment Upcoming Encounters Date Type Department Care Team (Late st Contact Info) Description 02/22/2025 1:00 PM EDT Appointment [facility] [address] [place] [address] phlebotomy documented as of this encounter Procedures Procedure Name Priority Date/Time Associated Diagnosis Comments EKG 12-LEAD Routine 08/17/2013 8:50 AM EDT XR CHEST (2 VW) Routine 08/17/2013 8:50 AM EDT URINALYSIS WITH MICROSCOPIC [employer] Label Print 08/17/2013 8:28 AM EDT CBC Routine 08/17/2013 8:28 AM EDT BASIC METABOLIC PANEL Routine 08/17/2013 8:28 AM EDT documented in this encounter Results * EKG 12 lead (08/17/2013 8:50 AM EDT) Pathologist [facility] Ventricular Rate 57 BPM [facility] Atrial Rate 57 BPM [facility] P-R Interval 174 ms [facility] QRS Duration 86 ms [facility] Q-T Interval 406 ms [facility] QTc Calculation (Bazett) 395 ms [facility] P [place] 64 degrees [facility] R [place] 26 degrees [facility] T [place] 46 degrees [facility] 08/17/2013 8:50 AM EDT Narrative [facility] - 08/17/2013 6:59 PM EDT Sinus bradycardiaOtherwise normal ECGWhen compared with ECG of 05-OCT-2010 08:57,No significant change was found Procedure Note 08/17/2013 Sinus bradycardiaOtherwise normal ECGWhen compared with ECG of [id number],No significant change was found us Peewee Westfall DPM ECG ORDERABLES Final Result [facility] * XR Chest Standard TWO VW (08/17/2013 8:50 AM EDT) Anatomical Region Laterality Modality Chest Radiographic Lynn ging 08/17/2013 8:50 AM EDT Narrative 08/17/2013 4:48 PM EDT FINAL Procedure: TRT Aug 17 2013 8:50AM [id number] CHEST PA AND LATERAL Reason for Exam: ^preop htn cad FULL RESULT: REPORT: CHEST, PA AND LATERAL: INDICATION: Hypertension, coronary artery disease. FINDINGS: Compared to 03/26/2009. Stable chronic changes in both lungs. Previous granulomatous disease. Mildly tortuous thoracic aorta. Very mild left ventricular hypertrophy, similar to previous. Hypertrophic degenerative changes of the spine. IMPRESSION: STABLE CHEST. In order to promptly notify physicians concerning their patients, this unconfirmed document is being released. It is not considered final until reviewed and signed. Electronically Signed by Chapin Bautista M.D. 08/17/2013 04:48 P LH/atiya A A CC: Danni Fish MD IMPRESSION: SEE ABOVE. Transcribed by: [facility] on Aug 17 2013 4:48P Read by: CHAPIN BAUTISTA M.D. [id number] on Aug 17 2013 11:15A Electronically Signed by: DR. CHAPIN BAUTISTA M.D. on: Aug 17 2013 4:48P Procedure Note Chapin Bautista MD - 08/17/2013 FINAL Procedure: TRT Aug 17 2013 8:50AM [id number] CHEST PA AND LATERAL Reason for Exam: ^preop htn cad FULL RESULT: REPORT: CHEST, PA AND LATERAL: INDICATION: Hypertension, coronary artery disease. FINDINGS: Compared to 03/26/2009. Stable chronic changes in both lungs. Previous granulomatous disease. Mildly tortuous thoracic aorta. Very mild left ventricular hypertrophy, similar to previous. Hypertrophic degenerative changes of the spine. IMPRESSION: STABLE CHEST. In order to promptly notify physicians concerning their patients, this unconfirmed document is being released. It is not considered finaluntil reviewed and signed. Electronically Signed by Chapin Bautista M.D. 08/17/2013 04:48 P LH/kcw A A CC: Danni Fish MD IMPRESSION: SEE ABOVE. Transcribed by: [facility] on Aug 17 2013 4:48P Read by: CHAPIN BAUTISTA M.D. [id number] on Aug 17 2013 11:15A Electronically Signed by: DR. CHAPIN BAUTISTA M.D. on: Aug 17 2013 4:48P us Peewee Westfall DPM IMG DIAGNOSTIC IMAGING ORDERA BLES Edited Result - Final * (ABNORMAL) Urinalysis with microscopic (08/17/2013 8:28 AM EDT) Color, UA YELLOW YEL 08/17/2013 10:10 AM EDT [facility] Turbidity UA CLEAR CLEAR 08/17/2013 10:10 AM EDT [facility] Glucose, Ur NEGATIVE NEG 08/17/2013 10:10 AM EDT [facility] Bilirubin Urine NEGATIVE NEG 08/17/201 4 10:10 AM EDT [facility] Ketones, Urine NEGATIVE NEG 08/17/2013 10:10 AM EDT [facility] Specific [place], UA >1.030(H) 1.010 - 1.020 08/17/2013 10:10 AM EDT [facility] Urine Hgb NEGATIVE NEG 08/17/2013 10:10 AM EDT [facility] pH, UA 6.0 5.0 - 9.0 08/17/2013 10:10 AM EDT [facility] Protein, UA NEGATIVE NEG 08/17/2013 10:10 AM EDT [facility] Urobilinogen, Urine Normal NORM 08/17/2013 10:10 AM EDT [facility] Nitrite, Urine NEGATIVE NEG 08/17/2013 10:10 AM EDT [facility] Leukocyte Esterase, Urine NEGATIVE NEG 08/17/2013 10:10 AM EDT [facility] Urinalysis Comments NOT REPORTED [facility] - 08/17/2013 10:10 AM EDT [facility] WBC, UA 0 TO 2 0 - 5 /HPF 08/17/2013 10:10 AM EDT [facility] RBC, UA None 0 - 2 /HPF 08/17/2013 10:10 AM EDT [facility] Casts UA NOT REPORTED 0 - 2 /LPF [facility] Crystals, UA NOT REPORTED NONE /HPF [facility] Epithelial Cells, UA 0 TO 2 0 - 25 /HPF 08/17/2013 10:10 AM EDT [facility] Comment: Performed at [address] [place], [place] [id number] Renal Epithelial, UA NOT REPORTED 0 /HPF [facility] Bacteria, UA NOT REPORTED NONE [facility] Mucus, UA NOT REPORTED NONE [facility] Trichomonas NOT REPORTED NONE [facility] Amorphous, UA NOT REPORTED NONE [facility] Other Observations UA NOT REPORTED NREQ [facility] Yeast, UA NOT REPORTED NONE [facility] URINE SPECIMEN / Unknown 08/17/2013 8:28 AM EDT 08/17/2013 8:29 AM EDT Peewee Westfall DPArin URINE ORDERABLES Final Result [facility] [address] [place] [id number], [facility] [phone] [facility] * (ABNORMAL) Basic Metabolic Panel (08/17/2013 8:28 AM EDT) Glucose 135(H) 70 - 99 mg/dL 08/17/2013 9:30 AM EDT [facility] BUN 16 8 - 23 mg/dL 08/17/2013 9:30 AM EDT [facility] Creatinine 0.73 0.70 - 1.20 mg/dL 08/17/2013 9:30 AM EDT [facility] BUN/Creatinine Ratio 22(H) 9 - 20 08/17/2013 9:30 AM EDT [facility] Calcium 9.7 8.6 - 10.0 mg/dL 08/17/2013 9:30 AM EDT [facility] Sodium 138 136 - 145 mmol/L 08/17/2013 9:30 AM EDT [facility] Potassium 4.5 3.5 - 5.1 mmol/L 08/17/2013 9:30 AM EDT [facility] Chloride 104 98 - 107 mmol/L 08/17/2013 9:30 AM EDT [facility] CO2 26 20 - 31 mmol/L 08/17/2013 9:30 AM EDT [facility] Anion Gap NOT REPORTED mmol/L [facility] GFR Non- >60 >60 mL/min 08/17/2013 9:30 AM EDT [facility] GFR >60 >60 mL/min 08/17/2013 9:30 AM EDT [facility] GFR Comment 08/17/2013 9:30 AM EDT [facility] Comment: Average GFR for 60-69 years old: 85 mL/min/1.73sq m Chronic Kidney Disease: <60 mL/min/1.73sq m Kidney failure: <15 mL/min/1.73sq m GFR Staging 08/17/2013 9:30 AM EDT [facility] Comment: Stage 1: Some kidney damage normal GFR Stage 2: Mild kidney damage GFR 60-89 Stage 3: Moderate kidney damage GFR 30-59 Stage 4: Severe kidney damage GFR 15-29 Stage 5: Severe kidney damage GFR <15 ESRD - chronic treatment by dialysis or transplant Performed at [address] [place] [address] BLOOD SPECIMEN / Unknown 08/17/2013 8:28 AM EDT 08/17/2013 8:29 AM EDT Peewee Westfall DPArin CHEMISTRY ORDERABLES Final Re sult [place] [id number], [facility] [phone] [facility] * (ABNORMAL) CBC (08/17/2013 8:28 AM EDT) WBC 8.5 3.5 - 11.0 k/uL 08/17/2013 9:13 AM EDT [facility] RBC 5.32 4.5 - 5.9 m/uL 08/17/2013 9:13 AM EDT [facility] Hemoglobin 16.6 13.5 - 17.0 g/dL 08/17/2013 9:13 AM EDT [facility] Hematocrit 49.3 41 - 53 % 08/17/2013 9:13 AM EDT [facility] MCV 92.6 80 - 100 fL 08/17/2013 9:13 AM EDT [facility] MCH 31.2 26 - 34 pg 08/17/2013 9:13 AM EDT [facility] MCHC 33.7 31 - 37 g/dL 08/17/2013 9:13 AM EDT [facility] RDW 14.5(H) 10.0 - 14.0 % 08/17/2013 9:13 AM EDT [facility] Platelets 184 140 - 450 k/uL 08/17/2013 9:13 AM EDT [facility] Comment: Performed at [address] [place] [address] MPV NOT REPORTED 6.0 - 12.0 fL [facility] BLOOD SPECIMEN / Unknown 08/17/2013 8:28 AM EDT 08/17/2013 8:29 AM EDT us Peewee Westfall DPM HEMATOLOGY ORDERABLES Final R esult [facility] [address] [place] [id number] [phone] [facility] documented in this encounter Visit Diagnoses Not on filedocumented in this encounter Care Teams Substitute Teacher Relationship Specialty Start Date End Date Diego Bartlett MD PCP - General 05/10/11 07/24/19 documented as of this encounter
--- OUTSIDE RECORDS SUMMARY | 2015-04-11 02:26 | XMS_ITS | Encounter Summary ---
Author Organization [facility] Address [address], [address] [place] [address] Care Team Providers Care Sex Worker Or Escort Name Role Phone Diego Bartlett MD Primary Care Provider [phone] Encounter Details Date Type Department Care Team (Late st Contact Info) Description 04/11/2015 1:26 AM EST Hospital Encounter MTH PRE ADMIT [address] [phone] Tiburcio Brennan MD [address] [place] [address] Social History Tobacco Use Types Packs/Day Years [...] Sign Reading Time Taken Comments Blood Pressure 126/85 04/11/2015 7:49 AM EST Pulse 85 04/11/2015 7:49 AM EST Temperature 35.4 C (95.8 F) 04/11/2015 7:49 AM EST Respiratory Rate - - Oxygen Saturation 94% 04/11/2015 7:49 AM EST Inhaled Oxygen Concentration - - Weight 166.4 kg (366 lb 14 oz) 04/11/2015 7:49 A M EST Height 198.1 cm (6' 6 ) 04/11/2015 7:49 AM EST Body Mass Index 42.4 04/11/2015 7:49 AM EST documented in this encounter Plan of Treatment Upcoming Encounters Date Type Department Care Team (Late st Contact Info) Description 02/22/2025 1:00 PM EDT Appointment [facility] [address] [place], [place] [phone] phlebotomy documented as of this encounter Procedures Procedure Name Priority Date/Time Associated Diagnosis Comments EKG 12-LEAD Routine 04/11/2015 9:32 AM EST XR CHEST (2 VW) Routine 04/11/2015 8:57 AM EST CULTURE, MRSA, SCREENING [employer] Label Print 04/11/2015 8:50 AM EST CBC WITH AUTO DIFFERENTIAL Routine 04/11/2015 8:43 AM EST BASIC METABOLIC PANEL Routine 04/11/2015 8:43 AM EST documented in this encounter Results * EKG 12 lead (04/11/2015 9:32 AM EST) Pathologist [facility] Ventricular Rate 77 BPM [facility] RADIOLOGY Atrial Rate 77 BPM [facility] RADIOLOGY P-R Interval 174 ms [facility] RADIOLOGY QRS Duration 80 ms [facility] RADIOLOGY Q-T Interval 360 ms [facility] RADIOLOG[facility] QTc Calculation (Bazett) 407 ms [facility] RADIOLOGY P Benedict 51 degrees [facility] R Benedict 17 degrees [facility] T Benedict 51 degrees [facility] 04/11/2015 9:32 AM EST Narrative [facility] - 04/11/2015 3:49 PM EST Normal sinus rhythmPossible Inferior infarct , age undeterminedAbnormal ECGWhen compared with ECG of 24-OCT-2013 18:45,No significant change was found Procedure Note Result, Unknown Provider - 04/11/2015 Normal sinus rhythmPossible Inferior infarct , age undeterminedAbnormalECGWhen compared with ECG of 24-OCT-2013 18:45,No significant change wasfound us Tiburcio Brennan MD ECG ORDERABLES Final Result [facility] * XR Chest Standard TWO VW (04/11/2015 8:57 AM EST) Anatomical Region Laterality Modality Chest Computed Radiogr aphy Thoracic structure (body structure) 04/11/2015 8:59 AM EST Impressions 04/11/2015 9:02 AM EST IMPRESSION: Stable chest Final report electronically signed by Cathleen Schneider on 04/11/2015 9:02 AM Narrative 04/11/2015 9:02 AM EST REPORT: Chest PA and lateral INDICATION: Preoperative evaluation, diabetes mellitus, coronary artery disease FINDINGS: Compared to 08/17/2013. The lungs are well expanded and clear bilaterally. No focal consolidation, pleural effusion or pneumothorax seen. Stable left ventricular hypertrophy. No free intraperitoneal air. Hypertrophic degenerative changes thoracic spine. Procedure Note Cathleen Schneider MD - 04/11/2015 REPORT: Chest PA and lateral INDICATION: Preoperative evaluation, diabetes mellitus, coronary arterydisease FINDINGS: Compared to 08/17/2013. The lungs are well expanded and clearbilaterally. No focal consolidation, pleural effusion or pneumothoraxseen. Stable left ventricular hypertrophy. No free intraperitoneal air.Hypertrophic degenerative changes thoracic spine. IMPRESSION: Stable chest Final report electronically signed by Cathleen Schneider on 04/11/2015 9:02 AM us Tiburcio Brennan MD IMG DIAGNOSTIC IMAGING ORDERA BLES Final Result * MRSA Screening Culture Only (04/11/2015 8:50 AM EST) Specimen Description .SUDHAKAR 04/11/2015 8:47 AM EST [facility] Special Requests NOT REPORTED 04/11/2015 8:47 AM EST [facility] Culture NEGATIVE FOR: METHICILLIN RESISTANT STAPHYLOCOCCUS AUREUS 04/14/2015 10:55 AM EST [facility] Culture Performed at [address] [place] [address] 04/14/2015 10:55 AM EST [facility] Culture 04/14/2015 10:55 AM EST [facility] Status FINAL 04/14/2015 04/14/20 15 10:55 AM EST [facility] ANTERIOR NARES SWAB / Unknown 04/11/2015 8:50 AM EST 04/11/2015 8:55 AM EST Tiburcio Brennan MD MICROBIOLOGY - GENERAL ORDERA BLES Final Result [facility] [address] [place] [address], [facility] [phone] [facility] * (ABNORMAL) Basic Metabolic Panel (04/11/2015 8:43 AM EST) Glucose 157(H) 70 - 99 mg/dL 04/11/2015 10:03 AM EST [facility] BUN 11 8 - 23 mg/dL 04/11/2015 10:03 AM EST [facility] Creatinine 0.74 0.70 - 1.20 mg/dL 04/11/2015 10:03 AM EST [facility] BUN/Creatinine Ratio 15 9 - 20 04/11/2015 10:03 AM EST [facility] Calcium 9.6 8.6 - 10.4 mg/dL 04/11/2015 10:03 AM EST [facility] Sodium 138 135 - 144 mmol/L 04/11/2015 10:03 AM EST [facility] Potassium 4.3 3.7 - 5.3 mmol/L 04/11/2015 10:03 AM EST [facility] Chloride 100 98 - 107 mmol/L 04/11/2015 10:03 AM EST [facility] CO2 25 20 - 31 mmol/L 04/11/2015 10:03 AM EST [facility] Anion Gap 13 9 - 17 mmol/L 04/11/2015 10:03 AM EST [facility] GFR Non- >60 >60 mL/min 04/11/2015 10:03 AM EST [facility] GFR >60 >60 mL/min 04/11/2015 10:03 AM EST [facility] GFR Comment 04/11/2015 10:03 AM EST [facility] Comment: Average GFR for 60-69 years old: 85 mL/min/1.73sq m Chronic Kidney Disease: <60 mL/min/1.73sq m Kidney failure: <15 mL/min/1.73sq m GFR Staging 04/11/2015 10:03 AM EST [facility] Comment: Stage 1: Some kidney damage normal GFR Stage 2: Mild kidney damage GFR 60-89 Stage 3: Moderate kidney damage GFR 30-59 Stage 4: Severe kidney damage GFR 15-29 Stage 5: Severe kidney damage GFR <15 ESRD - chronic treatment by dialysis or transplant Performed at [address] [place] [address] ([phone] BLOOD SPECIMEN / Unknown 04/11/2015 8:43 AM EST 04/11/2015 8:44 AM EST us Tiburcio Brennan MD CHEMISTRY ORDERABLES Final Re sult [address] [address] [phone] [facility] * (ABNORMAL) CBC auto differential (04/11/2015 8:43 AM EST) WBC 8.2 3.5 - 11.0 k/uL 04/11/2015 9:29 AM EST [facility] RBC 5.25 4.5 - 5.9 m/uL 04/11/2015 9:29 AM EST [facility] Hemoglobin 16.4 13.5 - 17.0 g/dL 04/11/2015 9:29 AM EST [facility] Hematocrit 50.9 41 - 53 % 04/11/2015 9:29 AM EST [facility] MCV 97.0 80 - 100 fL 04/11/2015 9:29 AM EST [facility] MCH 31.3 26 - 34 pg 04/11/2015 9:29 AM EST [facility] MCHC 32.3 31 - 37 g/dL 04/11/2015 9:29 AM EST [facility] RDW 15.6(H) 12.1 - 15.2 % 04/11/2015 9:29 AM EST [facility] Platelets 172 140 - 450 k/uL 04/11/2015 9:29 AM EST [facility] MPV NOT REPORTED 6.0 - 12.0 fL [facility] Differential Type NOT REPORTED [facility] Seg Neutrophils 74(H) 36 - 66 % 5 9:29 AM EST [facility] Lymphocytes 13(L) 24 - 44 % 04/11/2015 9:29 AM EST [facility] Monocytes % 10 0 - 12 % 04/11/2015 9:29 AM EST [facility] Eosinophils % 3 0 - 8 % 04/11/2015 9:29 AM EST [facility] Basophils % 0 0 - 2 % 04/11/2015 9:29 AM EST [facility] Neutrophils Absolute 6.10 1.8 - 7.7 k/uL 04/11/2015 9:29 AM EST [facility] Lymphocytes Absolute 1.00 1.0 - 4.8 k/uL 04/11/2015 9:29 AM EST [facility] Monocytes Absolute 0.80 0.0 - 1.0 k/uL 04/11/2015 9:29 AM EST [facility] Eosinophils Absolute 0.30 0.0 - 0.4 k/uL 04/11/2015 9:29 AM EST [facility] Basophils Absolute 0.00 0.0 - 0.2 k/uL 04/11/2015 9:29 AM EST [facility] Comment: Performed at [address] [place] [address] ([phone] WBC Morphology NOT REPORTED [facility] RBC Morphology NOT REPORTED [facility] Platelet Estimate NOT REPORTED [facility] BLOOD SPECIMEN / Unknown 04/11/2015 8:43 AM EST 04/11/2015 8:44 AM EST us Tiburcio Brennan MD HEMATOLOGY ORDERABLES Final R esult [address] [address] [phone] [facility] documented in this encounter Visit Diagnoses Not on filedocumented in this encounter Care Teams Sex Worker Or Escort Relationship Specialty Start Date End Date Diego Bartlett MD PCP - General 12/5/11 2/18/20 documented as of this encounter
--- OUTSIDE RECORDS SUMMARY | 2015-05-08 02:32 | XMS_ITS | Encounter Summary ---
Author Organization Scott [facility] Address [address] [facility], [address] [place] [address] Care Team Providers Care Engraver Hand Hard Metals Name Role Phone Diego Bartlett MD Primary Care Provider [phone] Encounter Details Date Type Department Care Team (Late st Contact Info) Description 05/08/2015 1:32 AM EST Hospital Encounter MTH PRE ADMIT [address] [place] [address] Tiburcio Brennan MD [address] [place] [address] Social History Tobacco Use Types [...] 1:00 PM EDT Appointment [facility] [address] [place] [address] phlebotomy documented as of this encounter Procedures Procedure Name Priority Date/Time Associated Diagnosis Comments TYPE AND SCREEN Routine 05/08/2015 12:42 PM EST documented in this encounter Results * Type and screen (05/08/2015 12:42 PM EST) Expiration Date 05/15/2015 5 4:00 PM EST [facility] Arm Band Number [id number] 5 4:00 PM EST [facility] ABO/Rh A POSITIVE 05/08/2015 4:00 PM EST [facility] Antibody Screen NEGATIVE 5 4:00 PM EST [facility] Comment: Performed at [address] [place] [address] ([phone] 05/08/2015 12:4 2 PM EST 05/08/2015 12:43 PM EST Tiburcio Brennan MD BLOOD BANK TEST ORDERABLES Fi nal Result [place] [id number] [phone] [facility] documented in this encounter Visit Diagnoses Not on filedocumented in this encounter Care Teams Engraver Hand Hard Metals Relationship Specialty Start Date End Date Diego Bartlett MD PCP - General 05/10/11 07/24/19 documented as of this encounter
--- OUTSIDE RECORDS SUMMARY | 2015-09-17 13:44 | XMS_ITS | Encounter Summary ---
Author Organization [facility] Address [address], [address] [place] [address] Care Team Providers Care Pageant Director Name Role Phone Diego Bartlett MD Primary Care Provider [phone] Encounter Details Date Type Department Care Team (Late Contact Info) Description 09/17/2015 1:44 PM EDT Hospital Encounter [facility] PFT [address] [place] [phone] Newton Stein MD [address] [place] [address] Social History Tobacco Use Types Packs/Day Years [...] 1:00 PM EDT Appointment [facility] [address] [place] [phone] phlebotomy documented as of this encounter Procedures Procedure Name Priority Date/Time Associated Diagnosis Comments BLOOD GAS, ARTERIAL Sunquest Label Print 09/17/2015 3:10 PM EDT documented in this encounter Results * (ABNORMAL) Blood Gas, Arterial (09/17/2015 3:10 PM EDT) pH, Arterial 7.403 7.35 - 7.45 09/17/2015 3:36 PM EDT [facility] pCO2, Arterial 41.8 35 - 45 mmHg 09/17/2015 3:36 PM EDT [facility] pO2, Arterial 78.5(L) 80 - 100 mmHg 09/17/2015 3:36 PM EDT [facility] HCO3, Arterial 25.5 22 - 26 mmol/L 09/17/2015 3:36 PM EDT [facility] Positive Base Excess, Art 0.6 0.0 - 2.0 mmol/L 09/17/2015 3:36 PM EDT [facility] Negative Base Excess, Art NOT REPORTED 0.0 - 2.0 mmol/L [facility] O2 Sat, Arterial 96.1 95 - 98 % 09/17/2015 3:36 PM EDT [facility] Total Hb NOT REPORTED 12.0 - 16.0 g/dl [facility] Oxyhemoglobin NOT REPORTED 95.0 - 98.0 % [facility] Carboxyhemoglobin 0.3 0.0 - 5.0 % 09/17/2015 3:36 PM EDT [facility] Methemoglobin 0.6 0.0 - 1.9 % 09/17/2015 3:36 PM EDT [facility] Pt Temp 37 09/17/2015 3:36 PM EDT [facility] pH, Art, Temp Adj NOT REPORTED 7.350 - 7.450 [facility] pCO2, Art, Temp Adj NOT REPORTED [facility] pO2, Art, Temp Adj NOT REPORTED 80.0 - 100.0 mmHg [facility] O2 Device/Flow/% ROOM AIR 09/17/19 16 3:36 PM EDT [facility] Respiratory Rate NOT REPORTED [facility] Brennan Test PASS 09/17/2015 3:36 PM EDT [facility] Sample Site Left Radial Artery 09/17/2015 3:36 PM EDT [facility] Comment: Performed at [address] [place] [address] ([phone] Pt. Position NOT REPORTED [facility] Mode NOT REPORTED [facility] Set Rate NOT REPORTED [facility] Total Rate NOT REPORTED [facility] VT NOT REPORTED [facility] FIO2 NOT REPORTED [facility] Peep/Cpap NOT REPORTED [facility] PSV NOT REPORTED [facility] Text for Respiratory NOT REPORTED [facility] NOTIFICATION NOT REPORTED [facility] Notification Time NOT REPORTED [facility] Blood gases 09/17/2015 3:10 PM EDT 09/17/2015 3:18 PM EDT Newton Stein MD CHP ABG ORDER Final Resu lt Performing Organization Address City/State/[facility] Co de Phone Number [facility] [address] [place] [id number] [phone] [facility] documented in this encounter Visit Diagnoses Not on filedocumented in this encounter Care Teams Pageant Director Relationship Specialty Start Date End Date Diego Bartlett MD PCP - General 05/10/11 07/24/19 documented as of this encounter
--- OUTSIDE RECORDS SUMMARY | 2025-02-12 08:49 | XMS_ITS | Encounter Summary ---
Author Organization [facility] Address [address] [place] [address] Care Team Providers Care Implementation Analyst Name Role Phone Jordan Wong MD Primary Care Provider [phone] Mitch Mello MD Unavailable Jr. Julio Henson DO Unavailable Alberto Ibrahim DPM Unavailable Jordan Wong MD Unavailable [phone] Julio Huddleston MD Unavailable Hudson Stevenson MD Unavailable Kitty Edmond OD Unavailable Korin Kraft RN Unavailable Encounter Details Date Type Department Care Team (Late st Contact Info) Description 05/03/2023 Orders Only [facility] [place] 521 Family Medicine [address] [place] [address] Newton Stevenson MD [address] [place], [place] [phone] Social History Tobacco Use Types Packs/Day Years [...] Care Team (Late st Contact Info) Description 03/19/2025 9:00 AM EDT Office Visit [facility] [place] [facility] 112 [facility] 100 [place] [address] Jordan Wong MD 112 [facility] 100 [place] [address] documented as of this encounter Procedures Procedure [...] on filedocumented in this encounter Care Teams Implementation Analyst Relationship Specialty Start Date End Date Jordan Wong MD [address] [place] [address] (Fax) PCP - General Family Medicine 10/25/22 Jordan Wong MD [address] [place] [address] (Fax) PCP - ACO Reach 08/05/23 Mitch Mello MD [address] [place] [address] Referring Physician Cardiology 05/17/23 07/24/24 Jr. Julio Henson DO [address] [place] [address] Referring Physician Orthopaedic Surgery 05/17/23 Alberto Ibrahim DPM 1900 [facility] [place] [address] Referring Physician Podiatry 05/17/23 Julio Huddleston MD [address] [place] [address] Referring Physician Family Medicine 07/25/24 [place] Stevenson MD [address] [place] [address] Referring Physician Urology 07/25/24 Kitty Edmond OD [address] [place] [address] Referring Physician Optometry 07/25/24 Korin Kraft, ARUN [address] [place] [address] Registered Nurse Family Medicine 12/24/24 12/31/24 documented as of this encounter
--- OUTSIDE RECORDS SUMMARY | 2025-02-12 08:49 | XMS_ITS ---
Author Organization [facility] Address [address] [facility], [address] [place] [address] Care Team Providers Care Plastic Boat Patcher Name Role Phone Jordan Wong MD Primary [...] 10/01/2015 S/P JORY - LCX & RCA ([id number]-Sw. kabour) 05/13 S/P cardiac cath-05/13/14-Dr. landrum 05/13/2014 [...]
--- OUTSIDE RECORDS SUMMARY | 2025-02-12 08:49 | XMS_ITS | Encounter Summary ---
Author Organization [facility] Address [address] [place] [address] Care Team Providers Care Senior Caregiver Name Role Phone Jordan Wong MD Primary Care Provider Jr. Julio Henson DO Unavailable Alberto Ibrahim DPM Unavailable Jordan Wong MD Unavailable Julio Huddleston MD Unavailable [phone] Hudson Stevenson MD Unavailable Kitty Edmond OD Unavailable Reason for Visit * Reason Onset Date Comments Care Coordination 01/30/2025 Encounter Details Date Type Department Care Team (Late st Contact Info) Description 01/30/2025 Telephone [facility] [place] [address] [facility] 100 [place] [address] Jordan Wong MD 112 [facility] 100 [place] [address] Care Coordination Social History Tobacco Use Types [...] * Telephone Encounter - Laisha Castaneda - 01/31/2025 1:24 PM EDT Scheduled 03/28/25 * Telephone Encounter - Pamella Sam MA - 01/30/2025 1:13 PM EDT Erx sent. He needs a mid Oct OV with A1C * Telephone Encounter - Laisha Castaneda - 01/30/2025 12:47 PM EDT Bret called, he is out of refills on his metoprolol tartrate (Lopressor) 100 MG to [facility] in [place]. documented in this encounter Plan of Treatment Upcoming Encounters Date Type Department Care Team (Late st Contact Info) Description 03/19/2025 9:00 AM EDT Office Visit [facility] [place] [facility] [address] [facility] 100 [place] [address] Jordan Wong MD 112 [facility] 100 [place] [address] Scheduled Orders Name Type Priority Associated Diagnoses Orde r Schedule Hemoglobin A1c Lab Routine Type 2 diabetes mellitus with diabetic polyneuropathy, without long-term current use of insulin (HCC) Type 2 diabetes mellitus with diabetic microalbuminuria, without long-term current use of insulin (HCC) Expected: 01/30/2025 (Approximate), Expires: 01/30/2026 documented as of this encounter Visit Diagnoses Diagnosis Essential hypertension Unspecified essential hypertension Type 2 diabetes mellitus with diabetic polyneuropathy, without long-term current use of insulin (HCC) Type 2 diabetes mellitus with diabetic microalbuminuria, without long-term current use of insulin (HCC) documented in this encounter Additional Health Concerns Assessment Noted Time PHQ-9 Depression Total Score: 2 07/25/19 25 9:00 AM EST documented as of this encounter Care Teams Senior Caregiver Relationship Specialty Start Date End Date Jordan Wong MD [address] [place] [address] PCP - General Family Medicine 10/25/22 Jordan Wong MD [address] [facility] 100 [place] [address] PCP - ACO Reach 08/05/23 Jr. Julio Henson DO [address] [facility] 150 [place] [address] Referring Physician Orthopaedic Surgery 05/17/23 Alberto Ibrahim DPM [address] [place] [address] Referring Physician Podiatry 05/17/23 Julio Huddleston MD [address] [place] [address] Referring Physician Family Medicine 07/25/24 [place] Stevenson MD [address] [place] [address] [phone] Referring Physician Urology 07/25/24 Kitty Edmond OD 2331 [place] [address] Referring Physician Optometry 07/25/24 documented as of this encounter
--- OUTSIDE RECORDS SUMMARY | 2025-02-12 08:49 | XMS_ITS | Encounter Summary ---
Author Organization [facility] Address [address] [place] [address] Care Team Providers Care Elevator Repairer Helper Name Role Phone Jordan Wong MD Primary Care Provider Mitch Mello MD Unavailable Jr. Julio Henson DO Unavailable [phone] Alberto Ibrahim DPM Unavailable [phone] Jordan Wong MD Unavailable Julio Huddleston MD Unavailable Hudson Stevenson MD Unavailable [phone] Kitty Edmond OD Unavailable Korin Kraft RN Unavailable Encounter Details Date Type Department Care Team (Late st Contact Info) Description 05/25/2023 Orders Only [facility] [place] 521 Family Medicine [address] [facility] [place] [address] Jordan Wong MD 112 [facility] 100 [place] [address] Social History Tobacco Use Types Packs/Day Years [...] 03/19/2025 9:00 AM EDT Office Visit [facility] [place] [address] Family Medicine [address] [address] Jordan Wong MD [address] [address] (Fax) documented as of this encounter Visit Diagnoses Not on filedocumented in this encounter Additional Health Concerns Assessment Noted Time PHQ-9 Depression Total Score: 0 05/17/20 9:00 AM EST documented as of this encounter Care Teams Elevator Repairer Helper Relationship Specialty Start Date End Date Jordan Wong MD [address] [address] (Fax) PCP - General Family Medicine 10/25/22 Jordan Wong MD [address] [address] (Fax) PCP - ACO Reach 08/05/23 Mitch Mello MD [address] [place] [address] Referring Physician Cardiology 05/17/23 07/24/24 Jr. Julio Henson DO [address] [facility] 150 [place] [address] Referring Physician Orthopaedic Surgery 05/17/23 Alberto Ibrahim DPM [address] [place] [address] Referring Physician Podiatry 05/17/23 Julio Huddleston MD [address] [place] [address] Referring Physician Family Medicine 07/25/24 [place] Stevenson MD [address] [place] [address] Referring Physician Urology 07/25/24 Kitty Edmond OD 2331 [facility] [place] [address] Referring Physician Optometry 07/25/24 Korin Kraft, ARUN [address] [facility] 230 [place] [address] Registered Nurse Family Medicine 12/24/24 12/31/24 documented as of this encounter
--- OUTSIDE RECORDS SUMMARY | 2025-02-12 08:49 | XMS_ITS | Encounter Summary ---
Author Organization [facility] Address [address] [place] [address] Care Team Providers Care Evaluation Assistant Name Role Phone Jordan Wong MD Primary Care Provider Mitch Mello MD Unavailable Jr. Julio Henson DO Unavailable [phone] Alberto Ibrahim DPM Unavailable Jordan Wong MD Unavailable Julio Huddleston MD Unavailable [place] Stevenson MD Unavailable Kitty Edmond OD Unavailable Korin Kraft RN Unavailable Encounter Details Date Type Department Care Team (Late st Contact Info) Description 10/25/2023 Orders Only [facility] [place] 521 Family Medicine [address] [facility] [place] [address] Newton Stevenson MD [address] [place], [place] [phone] Social History Tobacco Use Types Packs/Day Years [...] 9:00 AM EDT Office Visit [facility] [place] [facility] Family Medicine 112 [facility] 100 [place] [address] Jordan Wong MD 112 [facility] 100 [place] [address] documented as of this encounter Procedures Procedure [...] documented as of this encounter Care Teams Evaluation Assistant Relationship Specialty Start Date End Date Jordan Wong MD [address] [facility] [address] [place] [address] PCP - General Family Medicine 10/25/22 Jordan Wong MD 112 [facility] 100 [place] [address] PCP - ACO Reach 08/05/23 Mitch Mello MD 1100 [place], [place] [phone] Referring Physician Cardiology 05/17/23 07/24/24 Jr. Julio Henson DO [address] [facility] 150 [place] [address] Referring Physician Orthopaedic Surgery 05/17/23 Alberto Ibrahim DPM 1900 [place] [address] Referring Physician Podiatry 05/17/23 Julio Huddleston MD 1355 [place] [address] Referring Physician Family Medicine 07/25/24 [place] Stevenson MD 290 [place], [place] [phone] Referring Physician Urology 07/25/24 Kitty Edmond OD 2331 [facility] [place] [address] Referring Physician Optometry 07/25/24 Korin Kraft, RN [address] [facility] 230 [place] [phone] Registered Nurse Family Medicine 12/24/24 12/31/24 documented as of this encounter
--- OUTSIDE RECORDS SUMMARY | 2025-02-12 08:49 | XMS_ITS | Encounter Summary ---
Author Organization [facility] Address [address] [place] [address] Care Team Providers Care Warehouse Laborer Name Role Phone Jordan Wong MD Primary Care Provider Mitch Mello MD Unavailable [phone] Jr. Julio Henson DO Unavailable [phone] Alberto Ibrahim DPM Unavailable [phone] Jordan Wong MD Unavailable [phone] Julio Huddleston MD Unavailable [phone] [place] Stevenson MD Unavailable Kitty Edmond OD [...] 9:00 AM EDT Office Visit [facility] [place] 100 Family Medicine 112 [facility] 100 [place] [address] Jordan Wong MD 112 [facility] 100 [place] [address] documented as of this encounter Procedures Procedure Name Priority Date/Time Associated Diagnosis Comments CA ECHO DOPPLER COMPLETE 05/22/2024 5:06 PM EST ALL TESTOSTERONE Routine 05/22/2024 8:39 AM EST documented in this encounter Results * CA ECHO DOPPLER COMPLETE (05/22/2024 5:06 PM EST) Anatomical Region Laterality Modality Other 05/22/2024 5:06 PM EST Narrative 05/22/2024 5:07 PM EST The [address] [address] Cardiology Report Signed Patient: JUAN MIGUEL JENNINGS MR#: [id number] : 1950 Acct:[id number] Age/Sex: 74 / M ADM Date: 05/22/24 Loc: CARD Attending Dr: PAUL WEN APRN Ordering Physician: PAUL WEN APRN Date of Service: 05/22/24 Procedure(s): CA echo doppler complete Accession Number(s): [id number] cc: JORDAN WONG ; PAUL WEN APRN Patient Name: JUAN MIGUEL JENNINGS MR#: [id number] : 1950 Exam Date: 05/22/2024 Ordering Doctor: [...] Pressure: 92.86 ml, 92.86 ml Dictated by: Niocla Diego M.D. on 05/22/2024 at 17:02 Approved by: Nicola Diego M.D. on 05/22/2024 at 17:06 Dictated By: Nicola Diego M.D. Signed By: 05/22/241706 DD/ 05 TD/TT: Chief Sales Officer: Procedure Note Radiology, Radiologist, MD - 05/22/2024 The [place] [id number] Cardiology Report Signed Patient: JUAN MIGUEL JENNINGS JMR#: [id number] : 2Acct:[id number] Age/Sex: 74 / MADM Date: 05/22/24 Loc: CARD Attending Dr: PAUL WEN APRN Ordering Physician: PAUL WEN APRN Date of Service: 05/22/24 Procedure(s): CA echo doppler complete Accession Number(s): [id number] cc: MAICOLENOCDALEANGUS ; PAUL WEN APRN Patient Name: JUAN MIGUEL JENNINGS MR#: [id number] : 1950 Exam Date: 05/22/2024 Ordering Doctor: PAUL WEN [facility] ECHOCARDIOGRAM REPORT PROCEDURE: CA ECHO DOPPLER [...] Diego M.D. Signed By:05/22/241706 DD/ 05 TD/TT: Chief Sales Officer: us Generic External Data Provider [facility] Final Result * (ABNORMAL) ALL TESTOSTERONE (05/22/2024 8:39 AM EST) TESTOSTERONE 91(A) 264 - 916 ng/dL [facility] Comment: Adult male reference interval is based on a population of healthy nonobese males (BMI <30) between 19 and 39 years old. bubba Fleming.al. JCEM 2017,102;5752-6376. PMID: [id number]. Performed at: - Lab[address] [id number] Professional Model: Zeke Almaguer PhD, Phone: [phone] 05/22/2024 8:39 AM EST 05/22/2024 8:40 AM EST Narrative [facility] - 05/23/2024 11:08 AM EST us Generic External Data Provider [facility] F inal Result [facility] documented in this encounter Visit Diagnoses Not on filedocumented in this encounter Additional Health Concerns Assessment Noted Time PHQ-9 Depression Total Score: 0 05/17/20 9:00 AM EST documented as of this encounter Care Teams Warehouse Laborer Relationship Specialty Start Date End Date Jordan Wong MD 112 [facility] 100 [place] [address] PCP - General Family Medicine 10/25/22 Jordan Wong MD 112 [facility] 100 [place] [address] PCP - ACO Reach 08/05/23 Mitch Mello MD 1100 [place] [phone] Referring Physician Cardiology 05/17/23 07/24/24 Jr. Julio Henson DO 112 [facility] 150 [place] [address] Referring Physician Orthopaedic Surgery 05/17/23 Alberto Ibrahim DPM [address] [place] [address] Referring Physician Podiatry 05/17/23 Julio Huddleston MD [address] [place] [address] Referring Physician Family Medicine 07/25/24 [place] Stevenson MD 290 [place] [address] Referring Physician Urology 07/25/24 Kitty Edmond OD [address] [place] [place] [address] Referring Physician Optometry 07/25/24 Korin Kraft, ARUN [address] [place] [address] Registered Nurse Family Medicine 12/24/24 12/31/24 documented as of this encounter
--- OUTSIDE RECORDS SUMMARY | 2025-02-12 08:49 | XMS_ITS | Encounter Summary ---
Author Organization [facility] Address [address] [place] [address] Care Team Providers Care Therapeutic Mentor Name Role Phone Jordan Wong MD Primary Care Provider Mitch Mello MD Unavailable [phone] Jr. Julio Henson DO Unavailable Alberto Ibrahim DPM Unavailable Jordan Wong MD Unavailable [phone] Julio Huddleston MD Unavailable [place] Stevenson MD Unavailable Kitty Edmond OD Unavailable Korin Kraft RN Unavailable Encounter Details Date Type Department Care Team (Late st Contact Info) Description 04/14/2023 Orders Only [facility] [place] [facility] Family Medicine [address] [place] [phone] Julio Huddleston MD [address] [place] [phone] Social History Tobacco Use Types Packs/Day Years [...] 03/19/2025 9:00 AM EDT Office Visit [facility] [place] [facility] Family Medicine [address] [place] [address] Jordan Wong MD [address] [address] (Fax) documented as of this encounter Procedures Procedure Name Priority Date/Time Associated Diagnosis Comments LIPID PANEL Routine 04/13/2023 9:44 AM EST documented in this encounter Results * Lipid panel (04/13/2023 9:44 AM EST) Blood Venous blood specimen / Unknown Julio Huddleston MD LAB BLOOD ORDERABLES Final R esult documented in this encounter Visit Diagnoses Not on filedocumented in this encounter Care Teams Therapeutic Mentor Relationship Specialty Start Date End Date Jordan Wong MD [address] [address] (Fax) PCP - General Family Medicine 10/25/22 Jordan Wong MD [address] [address] (Fax) PCP - ACO Reach 08/05/23 Mitch Mello MD [address] [place] [address] Referring Physician Cardiology 05/17/23 07/24/24 Jr. Julio Henson DO 112 [facility] 150 [place] [address] Referring Physician Orthopaedic Surgery 05/17/23 Alberto Ibrahim DPM [address] [facility] [place], [place] [id number] Referring Physician Podiatry 05/17/23 Julio Huddleston MD [address] [place] [address] Referring Physician Family Medicine 07/25/24 [place] Stevenson MD [address] [place], [place] [id number] Referring Physician Urology 07/25/24 Kitty Edmond OD [address] [facility] [place] [address] Referring Physician Optometry 07/25/24 Korin Kraft, ARUN [address] [facility] [address] [place] [address] Registered Nurse Family Medicine 12/24/24 12/31/24 documented as of this encounter
--- OUTSIDE RECORDS SUMMARY | 2025-02-12 08:49 | XMS_ITS | Clinical Summary ---
Author Organization [facility] Address [address] [place] [address] Care Team Providers Care Cook Specialty Name Role Phone Jordan Wong MD Primary Care Provider [phone] Allergies Active Allergy Reactions Criticality Noted Date [...] 90 tablet 3 06/08/19 25 026 Active Active Problems Problem Noted Date Diagnosed Date OAB (overactive bladder) 07/16/2024 Phimosis 04/08/2023 04/08/2023 Acquired hammer deformity of great toe 04/08/2023 Acquired hammer toes of both feet 01/11/2023 04/08/2023 BPH with urinary obstruction 01/11/202308/2022 Chronic constipation 01/11/2023 04/08/2023 Elevated PSA 01/11/2023 04/08/2023 History of colon cancer 01/11/2023 04/08/20 23 Hx of fdc use of blood thinners 01/11/2023 04/08/2023 Non-pressure [...] Type Department Care Team Description 01/08/2025 Telephone [facility] [address] [place] [address] Maria G Marlow MA 12/21/2024 11:20 AM EDT Office Visit [facility] [address] [place] [address] Surya Gleason, SHOP MANAGER Pre-op evaluation (Primary Dx); Coronary artery disease involving confederated 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; History of myocardial infarction; Primary hypertension; Mixed hyperlipidemia; Statin intolerance from Last 3 Months Immunizations Immunization Administration Dates Next Due Influenza, High Dose Seasona l, Preservative Free 03/05/2019,03/03/2018 Influenza, Seasonal, Quadriv alent, Adjuvanted 05/06/2021,03/22/2020 Influenza, Unspecified 03/06/2016 Influenza, injectable, quadr ivalent, preservative free 04/06/2017,01/23/2016 Influenza, seasonal, injectable 03/23/2014,04/06 Novel [id number], preservative-free 04/21 Pneumococcal Conjugate PCV 13 03/03/2018 [...] Zoster Vaccines (1 of 2) 02/10/2002 12/04/2016, 110 06/2012 Fall Risk Screening 02/10/2017 Diabetes: Hemoglobin A1C 12/12/2024 025, 03/21/2024, 04/13/2023 COVID-19 Vaccine ( season) 2025 03/23/2022, 03/23/2022, 03/23/2022, Additional history exists Influenza Vaccine (#1) 2025 , 02/28/2023, 04/16/2022, [...] 3 Months Insurance MEDICARE AARP Care Teams Cook Specialty Relationship Specialty Start Date End Date Jordan Wong MD [address] [place] [address] PCP - General 03/23/22
--- OUTSIDE RECORDS SUMMARY | 2025-02-12 08:49 | XMS_ITS | Clinical Summary ---
Author Organization [facility] Address [address] [facility], [address] [place] [address] Care Team Providers Care Urology Physician Assistant Name Role Phone Jordan Wong MD [...] 10/01/2015 S/P JORY - LCX & RCA ([id number]-El. kabour) 05/13 S/P cardiac cath-05/13/14-Dr. 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 Resolved Problems Problem Noted Date Diagnosed Date Resolved Date Screening for colorectal cancer 02/12/2014 04/03/2018 Immunizations Immunization Administration Dates Next Due Influenza [...] EDT Appointment [facility] [address] [place] [phone] phlebotomy Health Maintenance Due Date Last [...] 4.00 ng/mL [facility] Comment: Performed at [facility] [address] [place] [address] [facility] [address] [place] [address] CLIA No. [id number] CAP Accreditation No. [id number] Shop Firer/Fireman: Clint Tamez M.D. 10/13/2018 9:50 AM EDT 10/13/2018 11:25 AM EDT Narrative [facility] - 10/14/2018 2:14 AM EDT Ordering Provider: WILLI SANCHEZ us Willi Sanchez MD CHEMISTRY ORDERABLES Final Result Performing Organization Address [facility] Co de Phone Number [facility] * (ABNORMAL) Hemoglobin A1c (08/04/2016 7:05 PM EST) Pathologist [facility] Hemoglobin A1C 6.1(H) 4.8 - 5.9 % 08/04/2016 11:12 PM EST [facility] Estimated Avg Glucose 128 mg/dL 08/04/2016 11:12 PM EST [facility] Comment: The ADA and AACC recommend providing the estimated average glucose result to permit better patient understanding of their HBA1c result. Performed at [address] [place] [address] ([phone] BLOOD SPECIMEN / Unknown 08/04/2016 7:05 PM EST 08/04/2016 10:33 PM EST us Elton Dawson MD CHEMISTRY ORDERABLES Final Resu lt Performing Organization Address [facility]/ZIP Co de Phone Number [address] [address], [facility] [phone] [facility] * US ABDOMINAL LIMITED (04/15/2014 8:53 AM EST) Anatomical Region Laterality Modality Abdomen Other 04/15/2014 8:53 AM EST Narrative 04/15/2014 9:13 AM EST FINAL Procedure: [facility] Apr 15 2014 8:53AM [id number] US ABD LIMITED Reason for Exam: ^polycythemia, [...] kidneys reveals no hydronephrosis Report Transcribed by: [facility] on Apr 15 2014 9:13A Read by: CHAPIN BAUTISTA M.D. [id number] on Apr 15 2014 9:13A Electronically Signed by: DR. CHAPIN BAUTISTA M.D. on: Apr 15 2014 9:13A Procedure Note Chapin Bautista MD - 04/15/2014 FINAL Procedure: [facility] Apr 15 2014 8:53AM [id number] US ABD LIMITED Reason for Exam: ^polycythemia, [...] kidneys reveals no hydronephrosis Report Transcribed by: [facility] on Apr 15 2014 9:13A Read by: CHAPIN BAUTISTA M.D. [id number] on Apr 15 2014 9:13A Electronically Signed by: DR. CHAPIN BAUTISTA M.D. on: Apr 15 2014 9:13A us Gilda Conner MD [facility] US ORDERABLES Final Res ult from Last 3 Months or Most Recently Relevant to Health Maintenance Insurance MEDICARE [employer] MEDICARE SUPP Advance Directives Documents on File Type Date Recorded Patient Fiscal Clerk Expl anation ACP-Power of Company Accountant 08/31/2013 9:46 AM ACP-Advance Directive 08/31/2013 9:46 [...] 2:36 PM 05/13/2014 9:20 PM Care Teams Urology Physician Assistant Relationship Specialty Start Date End Date Jordan Wong MD PCP - General 07/25/19
--- OUTSIDE RECORDS SUMMARY | 2025-02-12 08:49 | XMS_ITS | Encounter Summary ---
Author Organization [facility] Address [address] [place] [address] Care Team Providers Care Rink Rat Name Role Phone Jordan Wong MD Primary Care Provider Mitch Mello MD Unavailable Jr. Julio Henson DO Unavailable Alberto Ibrahim DPM Unavailable Jordan Wong MD Unavailable Julio Huddleston MD Unavailable Hudson Stevenson MD Unavailable Kitty Edmond OD Unavailable Korin Kraft RN Unavailable [phone] Encounter Details Date Type Department Care Team (Late st Contact Info) Description 04/20/2023 Orders Only [facility] [place] 521 Family Medicine [address] [place] [address] Jordan Wong MD 112 [facility] 100 [place] [address] Social History Tobacco Use Types Packs/Day Years [...] 03/19/2025 9:00 AM EDT Office Visit [facility] [place] [address] Family Medicine 112 [facility] 100 [place] [address] Jordan Wong MD 112 [facility] 100 [place] [address] documented as of this encounter Visit Diagnoses Not on filedocumented in this encounter Care Teams Rink Rat Relationship Specialty Start Date End Date Jordan Wong MD 112 [facility] 100 [place] [address] PCP - General Family Medicine 10/25/22 Jordan Wong MD 112 [facility] 100 [place] [address] PCP - ACO Reach 08/05/23 Mitch Mello MD [address] [place] [address] Referring Physician Cardiology 05/17/23 07/24/24 Jr. Julio Henson DO [address] [facility] 150 [place] [address] Referring Physician Orthopaedic Surgery 05/17/23 Alberto Ibrahim DPM [address] [place] [address] Referring Physician Podiatry 05/17/23 Julio Huddleston MD [address] [place] [phone] Referring Physician Family Medicine 07/25/24 [place] Stevenson MD [address] [place] [id number] Referring Physician Urology 07/25/24 Kitty Edmond OD [address] [place] [address] Referring Physician Optometry 07/25/24 Korin Kraft, ARUN [address] [place] [address] [place] [address] Registered Nurse Family Medicine 12/24/24 12/31/24 documented as of this encounter
--- OUTSIDE RECORDS SUMMARY | 2025-02-12 08:49 | XMS_ITS | Encounter Summary ---
Author Organization [facility] Address [address] [place] [address] Care Team Providers Care Cigarette Maker Name Role Phone Jordan Wong MD Primary Care Provider [phone] Mitch Mello MD Unavailable Jr. Julio Henson DO Unavailable Alberto Ibrahim DPM Unavailable Jordan Wong MD Unavailable Julio Huddleston MD Unavailable [phone] [place] Stevenson MD Unavailable [phone] Kitty Edmond OD Unavailable Korin Kraft RN Unavailable [phone] Encounter Details Date Type Department Care Team (Late st Contact Info) Description 10/28/2023 Abstract [facility] [place] 521 Family Medicine [address] [facility] [place] [address] Jordan Wong MD 112 [facility] 100 [place] [address] Social History Tobacco Use Types Packs/Day Years [...] 03/19/2025 9:00 AM EDT Office Visit [facility] [place] [address] Family Medicine [address] [address] Jordan Wong MD [address] [address] (Fax) documented as of this encounter Visit Diagnoses Not on filedocumented in this encounter Additional Health Concerns Assessment Noted Time PHQ-9 Depression Total Score: 0 05/17/20 9:00 AM EST documented as of this encounter Care Teams Cigarette Maker Relationship Specialty Start Date End Date Jordan Wong MD [address] [address] (Fax) PCP - General Family Medicine 10/25/22 Jordan Wong MD [address] [address] (Fax) PCP - ACO Reach 08/05/23 Mitch Mello MD 1100 [place] [address] Referring Physician Cardiology 05/17/23 07/24/24 Jr. Julio Henson DO [address] [facility] 150 [place] [address] Referring Physician Orthopaedic Surgery 05/17/23 Alberto Ibrahim DPM [address] [place] [address] Referring Physician Podiatry 05/17/23 Julio Huddleston MD [address] [place] [address] Referring Physician Family Medicine 07/25/24 [place] Stevenson MD [address] [place] [address] Referring Physician Urology 07/25/24 Kitty Edmond OD [address] [facility] [place] [address] Referring Physician Optometry 07/25/24 Korin Kraft, ARUN [address] [facility] 230 [place] [address] Registered Nurse Family Medicine 12/24/24 12/31/24 documented as of this encounter
--- OUTSIDE RECORDS SUMMARY | 2025-02-12 08:49 | XMS_ITS | Clinical Summary ---
Author Organization [facility] Address [address] [facility] [place] [address] Care Team Providers Care Medical Accounting Clerk Name Role Phone Jordan Duncan MD Primary Care Provider [phone] Jr. Julio Henson DO Unavailable Alberto Ibrahim DPM Unavailable [phone] Jordan Duncan MD Unavailable Julio Huddleston MD Unavailable Hudson [...] without long-term current use of insulin ([facility]) Take 1 tablet (30 mg) by mouth in the morning. 90 tablet 1 09/19/19 25 025 Active losartan (Cozaar) 50 MG tabletIndication s:Essential hypertension Take 1 tablet (50 mg) by mouth Daily 90 tablet 1 09/19/19 25 025 Active famotidine (Pepcid) 20 MG tabletIndication s:Dyspepsia Take 1 tablet (20 mg) by mouth in the morning and 1 tablet (20 mg) before bedtime. 180 tablet 10/19/19 25 Active gabapentin (Neurontin) 100 MG capsuleIndicatio ns:Type 2 diabetes mellitus with diabetic polyneuropathy, without long-term current use of insulin ([facility]) Titrate from 1 to 2 capsules three [...] 180 tablet 3 12/25/19 25 026 Active metoprolol tartrate (Lopressor) 100 MG tabletIndication s:Essential hypertension Take 1 tablet (100 mg) by mouth See administration instructions 1 tablet in AM. 0.5 tablet in PM 135 tablet 01/31/20 25 026 Active metoprolol tartrate (Lopressor) 100 MG tabletIndication s:Essential hypertension Take 1 tablet (100 mg) by mouth See administration instructions 1 tablet in AM. 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 Hypogonadism [...] Encounters Date Type Department Care Team Description 01/30/[address] [address] [address] Jordan Duncan MD Care Coordination 01/15/2025 Refill [facility] [address] [address] Jordan Duncan MD Dyspepsia 01/14/2025 Clinisync Result Encounter NOMS External Department Unsolicited Provider, Generic External Data 01/01/2025 Clinisync Result Encounter NOMS External Department Unsolicited Provider, Generic External Data 12/31/2024 Patient Outreach [facility] [address] [place] [address] Korin Kraft RN 12/28/2024 Clinisync Result Encounter NOMS External Department Unsolicited Provider, Generic External Data 12/28/2024 Clinisync Result Encounter NOMS External Department Unsolicited Provider, Generic External Data 12/26/2024 Clinisync Result Encounter NOMS External Department Unsolicited Provider, Generic External Data 12/24/2024 Telephone [facility] [address] [address] Jordan Duncan MD Care Coordination 12/03/2024 Telephone [facility] [address] [address] Jordan Duncan MD from Last 3 Months Immunizations Immunization Administration Dates Next Due Influenza, [id number] 03/06/2016 Influenza, High Dose Seasona l, Preservative Free 03/05/2019,03/03/2018 Influenza, High-dose Seasona l, Quadrivalent, Preservative Free 03/04/2019,03/06/2016 Influenza, Seasonal, Quadriv alent, Adjuvanted 02/28/2023,04/16/2022,05/06/2021,03/22 Influenza, Unspecified 02/28/2023,2021,05/06/2021,03/22,03/05/2019,03/03/2018,04/06/2017 ,03/06/2016,03/06/2016,01/23/2016,03/06,04/06/2013 Influenza, injectable, quadr ivalent, preservative free 04/06/2017,01/23/2016 Influenza, seasonal, injectable 03/28/2024,03/23,04/06/2013 Influenza, trivalent, adjuvanted 03/28/2024 Moderna Bivalent Booster Vaccination 03/23/2022 Moderna SARS-CoV-2 50mcg/0.5mL Booster Novel [id number], preservative-free 04/21/2009 Pfizer Bivalent Booster 12 Y [...] 09/18/2024 9:24 AM EDT Plan of Treatment Upcoming Encounters Date Type Department Care Team (Late st Contact Info) Description 03/19/2025 9:00 AM EDT Office Visit [facility] 100 Family Medicine 112 [facility] 100 [place] [address] Jordan Duncan MD 112 [facility] 100 [place] [address] Health Maintenance Due Date Last Done Comments [...] Name Priority Date/Time Associated Diagnosis Comments ALL TESTOSTERONE Routine 01/14/2025 7:28 AM EDT ALL CBC WITH AUTO DIFF Routine 01/14/2025 7:28 AM EDT XR FOOT RT MIN 3V 01/01/2025 3:0 [...] Relevant to Health Maintenance Results * (ABNORMAL) ALL TESTOSTERONE (01/14/2025 7:28 AM EDT) [facility] TESTOSTERONE 67(A) 264 - 916 ng/dL [facility] Comment: Adult male reference interval is based on a population of healthy nonobese males (BMI <30) between 19 and 39 years old. Lonnie, et.al. JCEM 2017,102;2418-5038. PMID: [id number]. Performed at: [facility] [address] [id number] Beater Engineer: Zeke Almaguer PhD, Phone: [phone] 01/14/2025 7:28 AM EDT 01/14/2025 7:30 AM EDT Narrative CLINISYNC - 01/15/2025 4:07 AM EDT us Generic External Data Provider CLINISYMARICHUY F inamey Result [facility] * (ABNORMAL) ALL CBC WITH AUTO DIFF (01/14/2025 7:28 AM EDT) Only the most recent of2 resultswithin the time period is included. [facility] WBC 7.3 4.0 - 11.0 10 3/uL TBH TBH RBC 4.13(L) 4.70 - 6.10 10 6/uL TBH TBH HGB 13.4(L) 14.0 - 18.0 g/dL TBH TBH HCT 39.4(L) 42.0 - 54.0 % TBH TBH MCV 95.4(H) 80.0 - 94.0 fL TBH TBH MCH 32.4 25.9 - 34.0 pg TBH TBH MCHC 34.0 29.9 - 35.2 g/dL TBH TBH RDW 13.2 11.0 - 15.0 % TBH TBH PLT 116(L) 150 - 450 10 3/uL TBH TBH MPV 12.4 9.5 - 13.5 fL TBH NEUTROPHILS PERCENT AUTO 62.0 43.0 - 75.0 % TBH LYMPHOCYTES PERCENT AUTO 17.1(L) 20.5 - 60.0 % TBH MONOCYTES PERCENT AUTO 13.4(H) 1.7 - 12.0 % TBH TBH EO % 6.7 0.9 - 7.0 % TBH BASOPHILS PERCENT AUTO 0.4 0.2 - 2.0 % TBH IMMATURE GRANULOCYTES PCT AUTO 0.4 0.0 - 0.5 % TBH NEUTROPHILS ABSOLUTE AUTO 4.5 1.4 - 6.5 10 3/uL TBH LYMPHOCYTES ABSOLUTE AUTO 1.3 1.2 - 3.8 10 3/uL TBH MONOCYTES ABSOLUTE AUTO 1.0(H) 0.3 - 0.8 10 3/uL TBH TBH EO # 0.5 0.0 - 0.7 10 3/uL TBH BASOPHILS ABSOLUTE AUTO 0.0 0.0 - 0.1 10 3/uL TBH IMMATURE GRANULOCYTES ABS AUTO 0.03 0.00 - 0.03 10 3/uL TBH 01/14/2025 7:28 AM EDT 01/14/2025 7:30 AM EDT Narrative CLINISYNC - 01/14/2025 7:54 AM EDT us Generic External Data Provider CLINISYNC F inal Result CLINISYNC TB * XR FOOT RT MIN 3V (01/01/2025 3:04 PM EDT) Anatomical Region Laterality Modality Other 01/01/2025 3:04 PM EDT Narrative 01/01/2025 3:06 PM EDT [address] [address] XRay Report Signed Patient: JUAN MIGUEL JENNINGS MR#: [id number] : 1950 Acct:[id number] Age/Sex: 74 / M ADM Date: 01/01/25 Loc: SURGOUT Attending Dr: Enedina Boss D.P.M. Ordering Physician: Enedina Boss D.P.M. Date of Service: 01/01/25 Procedure(s): XR foot RT min 3V Accession Number(s): [id number] cc: JORDAN DUNCAN ; Enedina Boss D.P.M. [place] [address] Patient Name: JUAN MIGUEL JENNINGS MRN: [id number] date: 1950 Sex: M Assigned Patient Location: [facility] Current Patient Location: Accession/Order Number: [id number] Exam Date: 01/01/2025 15:03 Report Date: 01/01/2025 [...] Jr., D.O. 01/01/2025 3:04 PM Dictation Location: [place] [address] Electronically authenticated by: [id number] Y Date: 01/01/2025 15:04 Dictated By: John Pike M.D. Signed By: 01/01/25 1506 DD/ 1504 TD/TT: Wine Maker: Procedure Note Radiology, Radiologist, MD - 01/01/2025 [place] [address] XRay Report Signed Patient: JUAN MIGUEL JENNINGS R#: [id number] : 1950cct:[id number] Age/Sex: 74 / MADM Date: 01/01/25 Loc: SURGOUT Attending Dr: Enedina Boss D.P.M. Ordering Physician: Enedina Boss D.P.M. Date of Service: 01/01/25 Procedure(s): XR foot RT min 3V Accession Number(s): [id number] cc: JORDAN DUNCAN ; Enedina Boss D.P.M. The [place] [address] Patient Name: JUAN MIGUEL JENNINGS MRN: [id number] date: 1950 Sex: M Assigned Patient Location: [facility] Current Patient Location: Accession/Order Number: [id number] Exam Date: 01/01/2025 15:03 Report Date: 01/01/2025 [...] Jr., D.O. 01/01/2025 3:04 PM Dictation Location: [place] [address] Electronically authenticated by: [id number] Y Date: 5:04 Dictated By: John Pike M.D. Signed By:01/01/25 1506 DD/ 1504 TD/TT: Wine Maker: Generic External Data Provider CLINISYNC IMAGING Final Result * XR CHEST 2V (12/28/2024 3:03 PM EDT) Anatomical Region Laterality Modality Other 12/28/2024 3:03 PM EDT Narrative 12/28/2024 3:06 [place] [address] XRay Report Signed Patient: JUAN MIGUEL JENNINGS MR#: [id number] : 1950 Acct:[id number] Age/Sex: 74 / M ADM Date: 12/28/24 Loc: [facility] Attending Dr: Enedina Boss D.P.M. Ordering Physician: Enedina Boss D.P.M. Date of Service: 12/28/24 Procedure(s): XR chest 2V Accession Number(s): [id number] cc: JORDAN DUNCAN ; Enedina Boss D.P.M. [place] [id number] Patient Name: JUAN MIGUEL JENNINGS MRN: [id number] date: 1950 Sex: M Assigned Patient Location: [facility] Current Patient Location: [facility] Accession/Order Number: [id number] Exam Date: 12/28/2024 15:02 Report Date: 12/28/2024 [...] Palacios M.D. 12/28/2024 3:03 PM Dictation Location: [facility] Electronically authenticated by: [id number] Y Date: 12/28/2024 15:03 Dictated By: Tomer Palacios D.O. Signed By: 12/28/24 1506 DD/ 1503 TD/TT: Wine Maker: Procedure Note Radiology, Radiologist, MD - 12/28/2024 [place] [address] XRay Report Signed Patient: JUAN MIGUEL JENNINGS JMR#: [id number] : 1950cct:[id number] Age/Sex: 74 / MADM Date: 12/28/24 Loc: [facility] Attending Dr: Enedina Boss D.P.M. Ordering Physician: Enedina Boss D.P.M. Date of Service: 12/28/24 Procedure(s): XR chest 2V Accession Number(s): [id number] cc: JORDAN DUNCAN ; Enedina Boss D.P.M. The [place] [id number] Patient Name: JUAN MIGUEL JENNINGS MRN: [id number] date: 1950 Sex: M Assigned Patient Location: [facility] Current Patient Location: [facility] Accession/Order Number: [id number] Exam Date: 12/28/2024 15:02 Report Date: 12/28/2024 [...] Palacios M.D. 12/28/2024 3:03 PM Dictation Location: [facility] Electronically authenticated by: [id number] Y Date: :03 Dictated By: Tomer Palacios D.O. Signed By:12/28/24 1506 DD/ 1503 TD/TT: Wine Maker: Generic External Data Provider CLINISYNC IMAGING Final Result * [facility] PROTHROMBIN TIME INR W/O COUM (12/28/2024 1:09 PM EDT) PROTHROMBIN TIME 10.7 9.0 - 11.6 sec TB TB INR 1.01 TBH Comment: DESIRED INR: 2.0-3.0 CONDITIONS NOT LISTED BELOW 2.5-3.5 FOR PROSTHETIC HEART VALVE REPLACEMENT 2.5-3.5 RECURRENT THROMBOSIS 12/28/2024 1:09 PM EDT 12/28/2024 1:11 PM EDT Narrative CLINISYNC - 12/28/2024 2:11 PM EDT Generic External Data Provider CLINISYNC F inal Result Performing Organization Address [facility]/ZIP Co de Phone Number CLINISYNC [facility] * CCF APTT (12/28/2024 1:09 PM EDT) PARTIAL THROMBOPLASTIN TIME 30.4 22.3 - 36.2 sec TB 12/28/2024 1:09 PM EDT 12/28/2024 1:11 PM EDT Narrative CLINISYNC - 12/28/2024 2:11 PM EDT Generic External Data Provider CLINISYNC F inal Result Performing Organization Address [facility]/ZIP Co de Phone Number CL[facility]NC [facility] * (ABNORMAL) ALL BASIC METABOLIC PANEL (12/28/2024 [...] 0.70 - 1.30 mg/dL TBH TBH EGFR-AF [place] >60 >=60 mL/min/1.7 3m 2 TBH TBH EGFR-NON AF [place] >60 >=60 mL/min/1.7 3m 2 TBH BUN CREATININE RATIO 24.7 TBH CALCIUM 9.5 8.5 - 10.1 mg/dL TBH 12/28/2024 1:09 PM EDT 12/28/2024 1:11 PM EDT Narrative CLINISYNC - 12/28/2024 1:46 PM EDT Generic External Data Provider CLINISYNC F inal Result Performing Organization Address [facility] de Phone Number [facility] * HMHP LIVER PANEL (12/26/2024 8:13 AM EDT) BILIRUBIN TOTAL 0.5 0.2 - 1.0 mg/dL TB BILIRUBIN DIRECT 0.1 0.0 - 0.2 mg/dL [...] CLINISYNC F inal Result Performing Organization Address [facility] de Phone [facility] * (ABNORMAL) ALL LIPID PROFILE (FASTING) [...] mg/dl VERY HIGH VLDL CHOLESTEROL 55.8 mg/dL [facility] CHOL HDL RATIO 4.3 TB Comment: 3.3 - 4.4 LOW RISK 4.4 - 7.1 AVERAGE RISK 7.1 - 11.0 MODERATE RISK >11.0 HIGH RISK 12/26/2024 8:13 AM EDT 12/26/2024 8:14 AM EDT Narrative CLINISYNC - 12/26/2024 9:54 AM EDT Generic External Data Provider JONN boswell Result [facility] * (ABNORMAL) POCT microalbumin manually resulted (09/18/2024 [...] Performing Organization Information Site ID: [id number] Name: [facility] Address: [address] [place] [address], [address] [place] [phone] Director: Toan Lara MD Jordan Duncan MD LAB BLOOD ORDERABLES Final R esult [facility] * Diabetic Retinopathy Screening - OU - Both Eyes (09/30/2023 9:57 AM EDT) Anatomical Region Laterality Modality Head Other Kitty Edmond OD OPHTH PHOTOGRAPHY Final Result * Colonoscopy (12/17/2020 12:00 PM EDT) Anatomical Region Laterality Modality Endoscopy 12/17/2020 12:0 0 PM EDT Narrative 12/17/2020 12:00 PM EDT PERFORMED AT [facility] LOCATION:[id number] Procedure Note CONVERSION, GENERIC - 10/20/2022 PERFORMED AT [facility] LOCATION:[id number] Jordan Duncan MD ENDOSCOPY PROCEDURE ORDERABL ES Final Result from Last 3 Months or Most Recently Relevant to Health Maintenance Insurance MEDICARE Member Subscriber Plan / Payer (Ef fective 2017-Present) Name:Juan Miguel Jennings Member ID:[id number] Relation to Subscriber:Self Name:Juan Miguel Jennings Subscriber ID:[id number] Payer ID:STATE Group ID:Not on file Type:Medicare Address: [address] [place] [phone] AARP Advance Directives Documents on File Type Date Recorded Patient Oven Tender Bagels Expl anation Advance Directives and Living Will 11/20/2019 2018-05-09 Living Wi ll Advance Directives and Living Will 11/20/2019 2018-05-09 Power Of Nipple Maker Care Teams Medical Accounting Clerk Relationship Specialty Start Date End Date Jordan Duncan MD [address] [place] [address] PCP - General Family Medicine 10/25/22 Jordan Duncan MD [address] [place] [address] PCP - ACO Reach 08/05/23 Jr. Julio Henson DO [address] [place] [address] Referring Physician Orthopaedic Surgery 05/17/23 Alberto Ibrahim DPM [address] [place] [address] Referring Physician Podiatry 05/17/23 Julio Huddleston MD [address] [place] [phone] Referring Physician Family Medicine 07/25/24 Hudson Stevenson MD [address] [place] [phone] Referring Physician Urology 07/25/24 Kitty Edmond OD [facility] [place] [address] Referring Physician Optometry 07/25/24
--- OUTSIDE RECORDS SUMMARY | 2025-02-12 08:49 | XMS_ITS | Encounter Summary ---
Author Organization [facility] Address [address] [facility] [place] [address] Care Team Providers Care Assembler Dielectric Heater Name Role Phone Celi Wong MD Primary Care Provider [phone] Mitch Mello MD Unavailable Jr. Julio Henson DO Unavailable [phone] Alberto Ibrahim DPM Unavailable [phone] Celi Wong MD Unavailable [phone] Julio Huddleston MD Unavailable Hudson Stevenson MD [...] Visit [facility] 100 Family Medicine 112 [facility] 100 [place] [address] Celi Wong MD 112 [facility] 100 [place] [address] documented as of this encounter Procedures Procedure Name Priority Date/Time Associated Diagnosis Comments NM FAITH PERF SPECT REST STR 05/18/2024 10:06 AM EST documented in this encounter Results * NM FAITH PERF SPECT REST STR (05/18/2024 10:06 AM EST) Anatomical Region Laterality Modality Other 05/18/2024 10:0 6 AM EST Narrative 05/18/2024 10:07 AM EST The [address] [address] Nuclear Medicine Report Signed Patient: JUAN MIGUEL JENNINGS MR#: [id number] : 1950 Acct:[id number] Age/Sex: 74 / M ADM Date: 05/17/24 Loc: CARD Attending Dr: PAUL WEN APRN Ordering Physician: PAUL WEN APRN Date of Service: 05/17/24 Procedure(s): NM faith perf SPECT rest str Accession Number(s): [id number] cc: CELI WONG ; PAUL WEN APRN Patient Name: JUAN MIGUEL JENNINGS MR#: [id number] : 1950 Exam Date: 05/17/2024 Ordering Doctor: PAUL WEN [facility] RADIOLOGY REPORT PROCEDURE: NM FAITH PERF SPECT [...] LOCATION: Mid-anterior. Mid-inferior. Apical anterior. Apical inferior. [place]. SIZE: Large (5 or more segments). SEVERITY: [...] Signed By: 05/18/24 1007 DD/ 1006 TD/TT: Beet Flumer: Procedure Note Radiology, RadiologistMD - 05/18/2024 [place] [address] Nuclear Medicine Report Signed Patient: JUAN MIGUEL JENNINGS JMR#: [id number] : 2Acct:[id number] Age/Sex: 74 / MADM Date: 05/17/24 Loc: CARD Attending Dr: PAUL WEN APRN Ordering Physician: PAUL WEN APRN Date of Service: 05/17/24 Procedure(s): NM faith perf SPECT rest str Accession Number(s): [id number] cc: CELI WONG ; PAUL WEN APRN Patient Name: JUAN MIGUEL JENNINGS MR#: [id number] : 1950 Exam Date: 05/17/2024 Ordering Doctor: PAUL WEN BUFFING WHEEL FORMER MACHINE RADIOLOGY REPORT PROCEDURE: NM FAITH PERF SPECT [...] LOCATION: Mid-anterior. Mid-inferior. Apical anterior. Apical inferior. [place]. SIZE: Large (5 or more segments). SEVERITY: [...] M.D. Signed By:05/18/24 1007 DD/ 1006 TD/TT: Beet Flumer: us Generic External Data Provider CLIN[facility]NC IMAGING Final Result documented in this encounter Visit Diagnoses Not on filedocumented in this encounter Additional Health Concerns Assessment Noted Time PHQ-9 Depression Total Score: 0 05/17/20 9:00 AM EST documented as of this encounter Care Teams Assembler Dielectric Heater Relationship Specialty Start Date End Date Celi Wong MD [address] [place] [address] PCP - General Family Medicine 10/25/22 Celi Wong MD [address] [place] [address] PCP - ACO Reach 08/05/23 Mitch Mello MD [address] [place] [address] Referring Physician Cardiology 05/17/23 07/24/24 Jr. Julio Henson DO [address] [place] [address] Referring Physician Orthopaedic Surgery 05/17/23 Alberto bIrahim DPM [address] [place] [address] Referring Physician Podiatry 05/17/23 Julio Huddleston MD [address] [place] [address] Referring Physician Family Medicine 07/25/24 Hudson Stevenson MD [address] [place] [phone] Referring Physician Urology 07/25/24 [place] [address] [place] [address] Referring Physician Optometry 07/25/24 Korin Kraft, ARUN [address] [address] Registered Nurse Family Medicine 12/24/24 12/31/24 documented as of this encounter
--- OUTSIDE RECORDS SUMMARY | 2025-02-12 08:49 | XMS_ITS | Encounter Summary ---
Author Organization [facility] Address [address] [facility] [place] [address] Care Team Providers Care Batt Machine Operator Name Role Phone Jordan Wong MD Primary Care Provider Mitch Mello MD Unavailable [phone] Jr. Julio Henson DO Unavailable Alberto Ibrahim DPM Unavailable Jordan Wong MD Unavailable [phone] Julio Huddleston MD Unavailable Hudson Stevenson MD Unavailable Kitty Edmond OD Unavailable Korin Kraft RN Unavailable [phone] Encounter Details Date Type Department Care Team (Late st Contact Info) Description 03/07/2023 Abstract [facility] [address] [place] [address] Alberto Ibrahim DPArin [address] [place], [place] [phone] Social History Tobacco Use Types Packs/Day Years [...] Visit [facility] 100 Family Medicine [address] [place] [address] Jordan Wong MD [address] [place] [address] (Fax) documented as of this encounter Visit Diagnoses Not on filedocumented in this encounter Care Teams Batt Machine Operator Relationship Specialty Start Date End Date Jordan Wong MD [address] [place] [address] (Fax) PCP - General Family Medicine 10/25/22 Jordan Wong MD [address] [place] [address] PCP - ACO Reach 08/05/23 Mitch Mello MD [address] [place] [phone] Referring Physician Cardiology 05/17/23 07/24/24 Jr. Julio Henson DO [address] [place] [address] Referring Physician Orthopaedic Surgery 05/17/23 Alberto Ibrahim DPM [address] [place] [address] Referring Physician Podiatry 05/17/23 Julio Huddleston MD [address] [place] [address] Referring Physician Family Medicine 07/25/24 Hudson Stevenson MD [address] [place] [address] Referring Physician Urology 07/25/24 [place] [address] [place] [address] Referring Physician Optometry 07/25/24 Korin Kraft, ARUN [address] [address] Registered Nurse Family Medicine 12/24/24 12/31/24 documented as of this encounter
--- OUTSIDE RECORDS SUMMARY | 2025-02-12 08:49 | XMS_ITS | Encounter Summary ---
Author Organization [facility] Address [address] [place] [address] Care Team Providers Care Forestry Foreman Name Role Phone Jordan Wong MD Primary Care Provider Mitch Mello MD Unavailable Jr. Julio Henson DO Unavailable Alberto Ibrahim DPM Unavailable Jordan Wong MD Unavailable Julio Huddleston MD Unavailable [place] Stevenson MD Unavailable [phone] Kitty Edmond OD Unavailable Korin Kraft RN Unavailable Encounter Details Date Type Department Care Team (Late st Contact Info) Description 09/30/2023 Orders Only [facility] [place] 521 Family Medicine 521 [facility] [place] [place] [address] Kitty Edmond, OD [address] [facility] [place] [address] Social History Tobacco Use Types Packs/Day Years [...] Visit [facility] [place] 100 Family Medicine [address] [address] Jordan Wong MD [address] [address] documented as of this encounter Procedures Procedure [...] documented as of this encounter Care Teams Forestry Foreman Relationship Specialty Start Date End Date Jordan Wong MD 112 [address] [place] [address] PCP - General Family Medicine 10/25/22 Jordan Wong MD 112 [facility] [address] [place] [address] PCP - ACO Reach 08/05/23 Mitch Mello MD [address] [place] [address] Referring Physician Cardiology 05/17/23 07/24/24 Jr. Julio Henson DO [address] [place] [address] Referring Physician Orthopaedic Surgery 05/17/23 Alberto Ibrahim DPM 1900 [facility] [place] [address] Referring Physician Podiatry 05/17/23 Julio Huddleston MD [address] [place] [phone] Referring Physician Family Medicine 07/25/24 Hudson Stevenson MD [address] [place] [address] Referring Physician Urology 07/25/24 Kitty Edmond OD [facility] [place] [address] Referring Physician Optometry 07/25/24 Korin Kraft, ARUN [address] [place] [address] Registered Nurse Family Medicine 12/24/24 12/31/24 documented as of this encounter
--- OUTSIDE RECORDS SUMMARY | 2025-02-12 08:49 | XMS_ITS | Encounter Summary ---
Author Organization [facility] Address [address] [place] [address] Care Team Providers Care Inside Account Executive Name Role Phone Jordan Wong MD Primary Care Provider [phone] Mitch Mello MD Unavailable Jr. Julio Henson DO Unavailable Alberto Ibrahim DPM Unavailable [phone] Jordan Wong MD Unavailable [phone] Julio Huddleston MD Unavailable [phone] Hudson Stevenson MD Unavailable Kitty Edmond OD Unavailable Korin Kraft RN Unavailable [phone] Encounter Details Date Type Department Care Team (Late st Contact Info) Description 01/19/2023 Abstract [facility] [address] [place] [address] Alberto Ibrahim DPArin [address] [place], [place] [id number] Social History Tobacco Use Types Packs/Day Years [...] [facility] 112 [facility] 100 [place] [address] Jordan Wong MD [address] [facility] 100 [place] [address] documented as of this encounter Visit Diagnoses Not on filedocumented in this encounter Care Teams Inside Account Executive Relationship Specialty Start Date End Date Jordan Wong MD 112 [facility] 100 [place] [address] (Fax) PCP - General Family Medicine 10/25/22 Jordan Wong MD 112 [facility] 100 [place] [address] PCP - ACO Reach 08/05/23 Mitch Mello MD [address] [place] [address] Referring Physician Cardiology 05/17/23 07/24/24 Jr. Julio Henson DO [address] [place] [address] Referring Physician Orthopaedic Surgery 05/17/23 Alberto Ibrahim DPM [address] [place] [address] Referring Physician Podiatry 05/17/23 Julio Huddleston MD [address] [place] [id number] Referring Physician Family Medicine 07/25/24 Hudson Stevenson MD [address] [place] [address] Referring Physician Urology 07/25/24 Kitty Edmond OD [address] [facility] [place] [address] Referring Physician Optometry 07/25/24 Korin Kraft, ARUN [address] [place] [address] Registered Nurse Family Medicine 12/24/24 12/31/24 documented as of this encounter
--- OUTSIDE RECORDS SUMMARY | 2025-02-12 08:50 | XMS_ITS | Encounter Summary ---
Author Organization [facility] Address [address] [facility] [place] [address] Care Team Providers Care [employer] Name Role Phone Jordan Wong MD Primary Care Provider [phone] Mitch Mello MD Unavailable Jr. Julio Henson DO Unavailable Alberto Ibrahim DPM Unavailable Jordan Wong MD Unavailable [phone] Julio Huddleston MD Unavailable Hudson Stevenson MD Unavailable Kitty Edmond OD Unavailable Korin Kraft RN Unavailable [phone] Encounter Details Date Type Department Care Team (Late st Contact Info) Description 05/21/2024 Abstract [facility] [address] [place] [address] Alberto Ibrahim DPM [address] [place], [place] [id number] Social History Tobacco Use Types Packs/Day Years [...] Visit [facility] [address] [address] Jordan Wong MD [address] [address] (Fax) documented as of this encounter Visit Diagnoses Not on filedocumented in this encounter Additional Health Concerns Assessment Noted Time PHQ-9 Depression Total Score: 0 05/17/20 9:00 AM EST documented as of this encounter Care Teams [employer] Relationship Specialty Start Date End Date Jordan Wong MD [address] [phone] (Fax) PCP - General Family Medicine 10/25/22 Jordan Wong MD [address] [address] (Fax) PCP - ACO Reach 08/05/23 Mitch Mello MD [address] [place] [address] Referring Physician Cardiology 05/17/23 07/24/24 Jr. Julio Henson DO 112 [facility] 150 [place] [address] Referring Physician Orthopaedic Surgery 05/17/23 Alberto Ibrahim DPM [address] [facility] [place] [address] Referring Physician Podiatry 05/17/23 Julio Huddleston MD [address] [place] [address] Referring Physician Family Medicine 07/25/24 Hudson Stevenson MD [address] [place] [address] Referring Physician Urology 07/25/24 Kitty Edmond OD [address] [facility] [place] [address] Referring Physician Optometry 07/25/24 Korin Kraft, ARUN [address] [facility] [address] [place] [address] Registered Nurse Family Medicine 12/24/24 12/31/24 documented as of this encounter
--- OUTSIDE RECORDS SUMMARY | 2025-02-12 08:53 | XMS_ITS | CCD ---
Author Organization [facility] Care Team Providers Care Acidity Tester Name Role Phone PHYSICIAN, DEFAULT Unavailable Unavailable PHYSICIAN, DEFAULT Unavailable Unavailable Diego Bartlett Primary Care Provider Jordan Duncan Primary Care Provider Jordan Duncan MD Primary Care Provider JORDAN DUNCAN Primary Care Physician [phone] Jordan Duncan MD Primary Care Provider [phone] JORDAN DUNCAN Primary Care Physician Unavail able [...] DARRIUS BOLTON Unavailable ENEDINA HARGROVE Attending Unavailable HIGHLENEDINA HILARIO Admitting Unavailable HEMEYER ., DR ALATORRE Primary Care Unavailable ENEDINA HARGROVE Attending Unavailable BEENA PETER Marion Admitting Unavailable HEMEYER ., DR ALATORRE Primary Care Unavailable Jordan Duncan MD Primary Care Provider Mitch Mello MD Unavailable Jr. Anuja Henosn DO Unavailable Brody Ibrahim DPM Unavailable [phone] Jordan Duncan MD Unavailable Jordan Duncan MD Primary Care Provider Jordan Duncan MD Unavailable Jordan Duncan MD Primary Care Provider Jordan Duncan MD Unavailable [phone] Jordan Duncan MD Primary Care Provider WILLI SANCHEZ Referring Unavailable HEMEENOC, JORDAN Brown Primary Care Unavailable HEMEJORDAN STUBBS Primary Care Unavailable WILLI SANCHEZ Referring Unavailable HEMEENOC, JORDAN Brown Primary Care Unavailable WILLI SANCHEZ Referring Unavailable Anuja Huddleston MD Unavailable Topher Saavedra MD Unavailable Kitty Edmond OD Unavailable Anuja Huddleston MD Unavailable [phone] BRODY IBRAHIM Attending Unavailable JORDAN DUNCAN Attending Unavailable JORDAN DUNCAN Attending Unavailable RUSHER, BRODY Xiao Attending Unavailable RUSHER, BRODY Xiao Attending Unavailable RUS, BRODY Xiao Attending Unavailable HEMEYERJORDAN Attending Unavailable RUSHER, BRODY A Attending Unavailable RUSHER, BRODY Xiao Attending Unavailable RUS, BRODY A Attending Unavailable JORDAN DUNCAN Attending Unavailable JORDAN DUNCAN Attending Unavailable Abena DIAS, Korin Unavailable [phone] Enedina Hargrove DPM Attending Provider Enedina Hargrove Attending Unavailable Enedina Hargrove Admitting Unavailable PAUL CLEMONS Attending Unavailable ANUJA HUDDLESTON Attending Unavailable RACHEL ALEJO Attending Unavailable SAAVEDRATopher Attending Unavailable SAAVEDRATpoher Attending Unavailable SAAVEDRATopher R Attending Unavailable SAAVEDRA, Topher R Attending Unavailable SAAVEDRA, Topher R Attending Unavailable SAAVEDRA, Topher R Attending Unavailable SAAVEDRA, Topher R Attending Unavailable Allergies Allergy Classification Reported Allergen(s) Allergy Type Date of Onset Reaction(s) Facility (4 sources) Clindamycin/Linc omycin Propensity to adverse reactions to drug 8 Diarrhea [place], [place] (3 sources) Clindamycin [facility] glipiZIDE; Translations: [GLIPIZIDE] Drug Allergy 2 Diarrhea [facility] Work [facility]: (20 sources) metFORMIN; Translations: [METFORMIN] Drug Allergy 2 Diarrhea, Unknown [facility] Work [facility]: (20 sources) Pravastatin; Translations: [PRAVASTATIN] Drug Allergy 2 Unknown [facility] [employer] Work Phone: (4 sources) rosuvastatin; Translations: [ROSUVASTATIN] Drug Allergy 2 [facility] Work [facility]: (2 sources) Clindamycin; Translations: [CLINDAMYCIN] Drug Allergy 7 [facility] (1 source) glipiZIDE Drug Allergy 7 [facility] (1 source) metFORMIN Drug Allergy 7 [facility] (20 sources) Clindamycin Drug Allergy 2 Diarrhea [facility] (20 sources) ezetimibe; Translations: [EZETIMIBE] Drug Allergy 2 Unknown [facility] (20 sources) glipiZIDE Drug Allergy 2 Diarrhea, Unknown [facility] (20 sources) Rosuvastatin calcium Allergy to substance 1 Unknown [facility] Medications Current Medications Medication Drug Class(es) [...] Refills(s) 0 Start Date: 01/01/19 Status: Ordered Repeat number: 1 Simbrinza (20 sources) Carbonic Anhydrase Inhibitor, alpha-Adrenergic Agonist Start: 01-01-2019 take 1 drop(s) into the eye(s) twice daily Simbrinza drop(s), Eye-Both, BID, Refill(s) 0 Start Date: 01/01/19 Status: Ordered Repeat number: 1 Start: 01-01-2019 take 1 drop(s) into the [...] Refills(s) 0 Start Date: 06/20/23 Status: Ordered Quantity: 30.0 Unit: tab(s) Repeat number: 1 diclofenac sodium 75 mg delayed release oral tablet (20 sources) Nonsteroidal Anti-inflammatory Drug Start: 05-17-2023 End: 12-24-2025 take 1 tablet by mouth twice daily as needed for pain diclofenac (Voltaren) 75 MG EC tablet Indications: Chronic pain syndrome Take 1 tablet (75 mg) by mouth 2 (two) times a day as needed (pain) Do not crush, chew, or split. 180 tablet 3 12/24/2024 12/24/2025 Active empagliflozin 25 mg oral tablet (20 sources) Sodium-Glucose Cotransporter 2 Inhibitor Start: 08-17-2018 take 1 mg by mouth once daily in the morning Jardiance 25 mg oral tablet mg tab(s), Oral, qAM, Refills(s) 0 Start Date: 01/01/19 Status: Ordered Repeat number: 1 famotidine 20 mg oral tablet (20 sources) [...] Refills(s) 0 Start Date: 01/01/19 Status: Ordered Repeat number: 1 24 hr isosorbide mononitrate 30 mg extended release oral tablet (15 sources) Nitrate Vasodilator Start: 06-08-2024 End: 06-08-2025 take 1 tablet by mouth once daily, then take 1 tablet by mouth every twenty-four hours isosorbide mononitrate ER (Imdur) 30 MG 24 hr tablet Take 30 mg by mouth Daily 06/08/2024 06/08/2025 Active latanoprost Opth 0.005% Richelle (3 sources) Start: 02-25-2020 latanoprost Opth 0.005% Richelle Refill(s) [...] Refills(s) 0 Start Date: 02/25/20 Status: Ordered Repeat number: 1 take 2 tablets by mo ut once [...] MG TAB Start Date: 06/20/23 Status: Ordered Repeat number: 1 Start: 06-20-2023 METOPROLOL TAR TRATE 100 MG TAB METOPROLOL TARTRATE 100 MG TAB Start Date: 06/20/23 Status: Ordered Start: 04-20-2023 End: 10-17-2023 take 1.5 tablets by mouth every twenty-four hours in the morning metoprolol succinate XL (Toprol XL) 100 MG 24 hr tablet Indications: Atherosclerosis of [place] coronary artery of [place] heart without angina pectoris (CMS/HCC) Take 1.5 [...] daily 0 Active 24 hr oxybutynin chloride 10 mg extended release oral tablet (20 sources) Cholinergic Muscarinic Antagonist Start: 02-08-2025 take 1 tablet by mouth once daily oxybutynin 10 mg ER Tab 10 mg = 1 tab(s), Oral, Daily, # 90 tab(s), Refills(s) 3, Pharmacy: [facility]/pharmacy #[id number], 198, cm, 02/08/25 8:10:00 EDT, Height/Length Dosing, 161.5, kg, 02/08/25 8:10:00 EDT, Weight Dosing Start Date: 02/08/25 Status: Ordered Quantity: 90.0 Unit: tab(s) Repeat number: 4 Indications: Overactive bladder; Start: 09-08-2017 oxybutynin XL (Ditropan-XL) 5 MG [...] Refills(s) 0 Start Date: 02/25/20 Status: Ordered Repeat number: 1 pravastatin sodium 40 mg oral tablet (20 sources) HMG-CoA Reductase Inhibitor Start: 02-25-2020 pravastatin 40 mg Ta b Refills(s) 0 Start Date: 02/25/20 Status: Ordered take 2 tablets by mouth once pablo ly pravastatin (PRAVACHOL) 20 MG tablet Take 40 mg by mouth daily. 0 Active sucralfate 1000 mg oral tablet (15 sources) Aluminum Complex Start: 12-05-2023 sucralfate 1 g Tab Refills(s) 0 Start Date: 12/05/23 Status: Ordered Repeat number: 1 Start: 10-12-2023 End: 07-05-2024 sucralfate (Carafate) 1 g ta blet Indications: RUQ pain Dissolve 1 tablet in 2 oz water. Take 30 minutes before meals 3 times daily and at bedtime 120 tablet 10/12/2023 03/27/2024 Discontinued (Therapy completed) tamsulosin hydrochloride 0.4 mg oral capsule (20 sources) alpha-Adrenergic Justice Start: 07-16-2024 take 1 capsule by mouth twice daily tamsulosin 0.4 mg Cap 0.4 mg = 1 cap(s), Oral, BID, # 180 cap(s), Refills(s) 3, Pharmacy: [facility]/pharmacy #[id number], patti Read, 05/21/24 10:59:00 EST, Height/Length Dosing, 160, kg, 05/21/24 10:59:00 EST, Weight Dosing Start Date: 07/16/24 Status: Ordered Quantity: 180.0 Unit: cap(s) Repeat number: 4 Start: 01-11-2024 take 1 capsule by [facility] twice daily tamsulosin 0.4 mg Cap 0.4 mg = 1 cap(s), Oral, BID, # 180 cap(s), Refills(s) 3, Pharmacy: [facility]/pharmacy #[id number], patti Read, 12/05/23 10:49:00 EDT, Height/Length Dosing, 150.3, kg, 12/05/23 10:49:00 EDT, Weight Dosing Start Date: 01/11/24 Status: Ordered Start: 06-18-2022 take 1 capsule by [facility] once daily tamsulosin 0.4 mg Cap 0.4 mg = 1 cap(s), Oral, Daily, # 90 cap(s), Refills(s) 3, Pharmacy: [facility]/pharmacy #[id number], patti Read, 11/05/22 10:14:00 EDT, Height/Length Dosing, 150, kg, 11/05/22 10:14:00 EDT, Weight Dosing Start Date: 05/26/23 Status: Ordered take 1 capsule by [facility] every twenty-four hours in [...] # 10 mL, Refills(s) 1, Pharmacy: [facility]/pharmacy #[id number], 198, cm, 12/05/23 10:49:00 EDT, Height/Length Dosing, 150.3, kg, 12/05/23 10:49:00 EDT, Weight Dosing Start Date: 03/27/24 Status: Ordered Start: 01-03-2024 testosterone c ypionate 200 mg/mL IM Richelle 400 mg, IntraMuscular, q4wk, # 10 mL, Refills(s) 1, Pharmacy: [facility]/pharmacy #[id number], 198, cm, 12/05/23 10:49:00 EDT, Height/Length Dosing, 150.3, kg, 12/05/23 10:49:00 EDT, Weight Dosing Start Date: 01/03/24 Status: Ordered Start: 06-20-2023 testosterone c ypionate 200 mg/mL IM Richelle 450 mg, IntraMuscular, q4wk, # 10 mL, Refills(s) 1, Pharmacy: [facility]/pharmacy #[id number], 198, cm, 06/20/23 11:05:00 EST, Height/Length Dosing, 149, kg, 06/20/23 11:05:00 EST, Weight Dosing Start Date: 06/20/23 Status: Ordered Start: 05-09-2023 testosterone c ypionate 200 mg/mL IM Richelle 400 mg, IntraMuscular, q4wk, # 10 mL, Refills(s) 1, Pharmacy: [facility]/pharmacy #[id number], 198, cm, 11/05/22 10:14:00 EDT, Height/Length Dosing, 150, kg, 11/05/22 10:14:00 EDT, Weight Dosing Start Date: 05/09/23 Status: Ordered Start: 02-08-2023 testosterone c ypionate 200 mg/mL IM Richelle 400 mg, IntraMuscular, q4wk, # 10 mL, Refills(s) 2, Pharmacy: [facility]/pharmacy #[id number], 198, cm, 11/05/22 10:14:00 EDT, Height/Length Dosing, 150, kg, 11/05/22 10:14:00 EDT, Weight Dosing Start Date: 02/08/23 Status: Ordered Start: 08-27-2022 testosterone c ypionate 200 mg/mL IM Richelle 400 mg, IntraMuscular, q4wk, # 10 mL, Refills(s) 2, Pharmacy: [facility]/pharmacy #[id number], 198, cm, 06/18/22 9:10:00 EST, Height/Length Dosing, 164, kg, 06/18/22 9:10:00 EST, Weight Dosing Start Date: 08/27/22 Status: Ordered testosterone cypionate 200 mg/mL intramuscular solution (17 sources) Start: 02-01-2022 testosterone c ypionate 200 mg/mL intramuscular solution 400 mg = 2 mL, IntraMuscular, q4wk, 400mg once a month, # 10 mL, Refills(s) 3, Pharmacy: [facility]/pharmacy #[id number], 198, cm, 02/01/22 9:53:00 EDT, Height/Length Dosing, 166, kg, 02/01/22 9:53:00 EDT, Weight Dosing Start Date: 02/01/22 Status: Ordered Start: 11-23-2021 testosterone c ypionate 200 mg/mL intramuscular solution 350 mg, IntraMuscular, q4wk, # 10 mL, Refills(s) 1, Pharmacy: [facility]/pharmacy #[id number], 198, cm, 08/03/21 14:37:00 EST, Height/Length Dosing, 166, kg, 08/03/21 14:37:00 EST, Weight Dosing Start Date: 11/23/21 Status: Ordered Start: 08-03-2021 testosterone c ypionate 200 mg/mL intramuscular solution 350 mg, IntraMuscular, q4wk, # 10 mL, Refills(s) 1, Pharmacy: [facility]/pharmacy #[id number], 198, cm, 08/03/21 14:37:00 EST, [...] route daily 0 01/12/2019 Discontinued (Therapy completed) latanoprost 0.05 mg/ml ophthalmic solution (20 sources) Prostaglandin Analog Start: 02-25-[address] Opth 0.005% Richelle Refill(s) 0 Start Date: 02/25/20 Status: Ordered Repeat number: 1 Start: 07-27-2018 latanoprost (X alatan) 0.005 % [...] DAILY IN THE EVENING 2 07/27/2018 Active Problems Active Problems Problem Classification Problem Date [...] 02-19-2019 Episodic Cancer of rectum and anus (7 sources) Malignant tumor of anus; Translations: [Malignant neoplasm of anus, unspecified] Onset: 03-15-2012 08-04-2016 Chronic Chronic kidney disease (20 sources) Chronic kidney disease stage 2; Translations: [Chronic kidney disease, stage 2 (mild)] Onset: 11-15-2019 Resolved: 10-14-2023 01-11-2023 Chronic Coronary atherosclerosis and other heart disease (20 sources) Coronary arteriosclerosis; Translations: [Atherosclerotic heart disease of [place] coronary artery without angina pectoris] Onset: 04-08-2017 [...] [Nocturia] Onset: 11-15-2019 Resolved: 10-10-2023 01-01-2019 Episodic Glaucoma (20 sources) Open-angle glaucoma; [...] 01-13-2023 01-11-2023 Chronic 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 (1 source) [facility] (current) use of anticoagulants; Translations: [HALFWAY CURRNT USE ANTICOAGULANTS] Onset: 10-12-2022 Episodic 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 (1 source) [facility] (current) use of aspirin; Translations: [HALFWAY CURRENT USE OF ASPIRIN] Onset: 10-12-2022 Episodic 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 (1 source) 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; Translations: [HALFWAY USE ORAL HYPOGLYCEMIC DX] Onset: 10-12-2022 Episodic 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 (1 source) Other correction (current) drug therapy; Translations: [OTH INTERNAL AUDITOR CURRENT DRUG THERAPY] Onset: 09-20-2022 Episodic Other [...] Chronic Other diseases of bladder and urethra (2 sources) Detrusor overactivity; Translations: [Overactive bladder] Onset: 05-21-2024 Chronic Other diseases of bladder and urethra (17 sources) Overactive bladder; Translations: [Overactive bladder] Onset: [...] (pediatric)] Onset: 07-16-2024 Chronic Residual codes; unclassified (20 sources) H/O: [...] Onset: 05-03-20 Episodic Chronic ulcer of skin (20 sources) [...] Onset: 01-20-20 Episodic Other nervous system disorders (20 sources) [...] Translations: [Other specified health status] Onset: 07-16-19 25 Episodic Screening and history of mental health [...] Test Name Value Interpretation Reference Range Facility Urology Office/Clinic Noteon 02-08-2025 Urology Office/Clinic Note Urology Office/Clinic Note Chief Complaint pt here for follow up with labs HPI Staff Pt is a 74 year old male here for a follow up with labs Previous Dx: hypogonadism, elevated PSA, BPH with urinary obstruction, urinary urgency, phimosis Testosterone level: 10/20/22 - 321 05/23/23 - 278 11/21/23 - 412 05/08/24 - 461 01/15/25 - PSA: 01/11/22 - 0.22 05/05/22 - 0.11 10/20/22 - 0.44 06/20/23 - 0.08 On 05/21/24 pt was to pause TRT until current HGB is drawn, pt was to donate blood Pt denies pain/burning denies visible blood denies flank pain Pt complains of frequency *oxybutin, flomax needs refills sent [facility] IPSS: 8 History of Present Illness Tests reviewed: reviewed UA, T levels, CBC I have reviewed the previous health record [...] HPI. Physical Exam Vitals & Measurements T: 36.8 ???C(Tympanic) HR: 64(Peripheral) RR: 16 BP: 130/88 HT: 78 in HT: 198 cm WT: 356.046 lb WT: 161.5 kg BMI: 41.19 General Appearance: alert, no distress, well nourished, [...] inj 05/08/24 - 461 *one day late 05/22/24 - 91 (ref range 264-916) 01/15/25 - 67 (Ref range 264 - 916) CBC 05/22/24 - Hgb 17.9, Hct 53 (pt had not donated blood - was advised to donate at least 2 units after PRW reviewed labs, but pt was declined from donating blood to the [place] and had to get an order from oncology). 01/14/25 - Hgb 13.4, Hct 39.4 Stopped Testosterone IM 400 mg q4wk at prior OV due to high hgb. T level decreased, as expected. Hgb improved since being off TRT despite pt never donating blood. Shares he can have units of blood taken in [place]. Does have to get a phlebotomy order from onc. Discussed restarting TRT if pt can give blood. However pt does not feel any different wo TRT. -Consider restarting TRT if energy/libido is low/bothersome 2. OAB (overactive bladder) (N32.81: Overactive bladder) Taking Oxybutynin ER 5mg qd. Reports having to void shortly after already doing so. Occasionally getting up at night to void, not bothersome. Wears c-pap. Discussed increasing dosage of Oxybutynin. Risks/benefits discussed. Pt wishes to try. -Increase Oxybutynin ER 10 mg qd. New rx sent to [facility]. Call if emptying becomes difficult. -F/u in 6 mos 3. BPH with urinary obstruction (N40.1: Benign prostatic hyperplasia with lower urinary tract symptoms) PSA: 01/11/22 - 0.22 05/05/22 - 0.11 10/20/22 - 0.44 06/20/23 - 0.08 SHEREEN 06/20/23: 30gms, benign Hx of rectal cancer, tx'd w/ chemo and radiation in 2006. UA neg. IPSS 8. Taking Flomax 0.4 mg bid. No bother with stream. -Cont Flomax bid Follow-up With When Contact Information KERI NOLASCO, Topher Ordoñez, URL [address] [place] [address] [place] [address] Additional Instructions: 6 mos Patient Education Benign Prostatic Hyperplasia I, Erica Marin, personally scribed for Dr. Saavedra on 02/08/2025 08:52:38. . Documentation recorded by the scribe, Erica Marin, accurately reflects the services(s) I performed and decisions made by me. Authenticated by Dr. Saavedra on 02/08/2025 08:55:10. 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 Normal [facility] Comment on above: Result Comment: Elec tronically Signed By: Topher SAAVEDRA MD\.br\Date and Time Signed: 02/08/25 08:55 EDT\.br\Electronically Co-Signed By: Erica Marin\.br\Date and Time Co-Signed: 02/08/25 08:53 EDT ALL CBC WITH AUTO DIFFon BASOPHILS ABSOLUTE AUTO 0 [facility] Basophils/100 WBC (Bld) 0.4 % 0.2 - 2.0 % [facility] Eosinophils/100 WBC (Bld) 6.7 % 0.9 - 7.0 % [facility] Erythrocyte distribution width (RBC) [Ratio] 13.2 % 11.0 - 15.0 % [facility] Hematocrit (Bld) [Volume fraction] 39.4 % Low 42.0 - 54.0 % [facility] Hemoglobin (Bld) [Mass/Vol] 13.4 g/dL Low 14.0 - 18.0 g/dL [facility] IMMATURE GRANULOCYTES ABS AUTO 0.03 [facility] Immature granulocytes/100 WBC (Bld) 0.4 % 0.0 - 0.5 % [facility] Interpretation and review of laboratory results Abnormal [facility] LYMPHOCYTES ABSOLUTE AUTO 1.3 [facility] Lymphocytes/100 WBC (Bld) 17.1 % Low 20.5 - 60.0 % [facility] MCH (RBC) [Entitic mass] 32.4 pg 25.9 - 34.0 pg [facility] MCHC (RBC) [Mass/Vol] 34 g/dL 29.9 - 35.2 g/dL [facility] MCV (RBC) [Entitic vol] 95.4 fL High 80.0 - 94.0 fL [facility] MONOCYTES ABSOLUTE AUTO 1 High [facility] Monocytes/100 WBC (Bld) 13.4 % High 1.7 - 12.0 % [facility] NEUTROPHILS ABSOLUTE AUTO 4.5 [facility] Neutrophils/100 WBC (Bld) 62 % 43.0 - 75.0 % [facility] Platelet mean volume (Bld) [Entitic vol] 12.4 fL 9.5 - 13.5 fL [facility] EO # 0.5 [facility] PLT 116 Low [facility] RBC 4.13 Low [facility] WBC 7.3 [facility] 36on 01-08-2025 36 MD Maria G Peralta MA Blood testing ok, continue leqvio. Advised patient of Dr. Huddleston's findings. Patient verbalized understanding and agreed with plan of care. [facility] Efren 01-01-2025 L Specimen: [id number] Received: 01/02/25 Status: PATRICIA Zhu Num: [id number] Spec Type: Surgical Subm Dr: Enedina Hargrove DPM, MS Tissues: A DIGIT AMPUTATION (RIGHT FIFTH TOE) Procedures: HE/3, Gross/Micro L4, Decalcification Age/ Patient Sex Location Account Attending Physician Juan Miguel Jennings 74/M LABELL [id number] Enedina Hargrove DPM, MS SPEC NUM: [id number] RECD: 01/02/25 STATUS: PATRICIA ZHU NUM: [id number] JUANA: 01/01/25-[address] [facility] [address]: Enedina Hargrove DPM, MS ENTERED: 01/02/[address] [facility] [address]: Christal,Manuel SPEC TYPE: Surgical DEPT: RADHA MILNER ENTERED BY: [id number] RECV BY: [id number] ORDERED: HE/3, Gross/Micro L4, Decalcification ORDERED: HE/3, [...] skin margin submitted in A3. (3, , [id number] A) Microscopic Description Microscopic examination is performed. Specimen: [id number] Received: 01/02/25 Status: PATRICIA Zhu Num: [id number] Spec Type: Surgical Subm Dr: Enedina Hargrove,KATLIN, MS Tissues: A DIGIT AMPUTATION (RIGHT FIFTH TOE) Procedures: HE/3, Gross/Micro L4, Decalcification Patient: Juan Miguel Jennings [id number] (Continued) Specimen: [id number] Received: 01/02/25 (Continued) Signed (signature on file) Christiano Lombardi MD 01/07/25 0938 Specimen: [id number] Received: 01/02/25 Status: PATRICIA Shannontamera Num: [id number] Spec Type: Surgical Subm Dr: Enedina Hargrove,KATLIN, MS Tissues: A DIGIT AMPUTATION (RIGHT FIFTH TOE) Procedures: HE/3, Gross/Micro L4, Decalcification Patient: Juan Miguel Jennings [id number] (Continued) Specimen: [id number] Received: 01/02/25 (Continued) CPT Codes 07302, 79248 Specimen: [id number] Received: 01/02/25 Status: PATRICIA Zhu Num: [id number] Spec Type: Surgical Subm Dr: Enedina Hargrove,KATLIN, MS Tissues: A DIGIT AMPUTATION (RIGHT FIFTH TOE) Procedures: HE/3, Gross/Micro L4, Decalcification Patient: Juan Miguel Jennings [id number] (Continued) Signed (signature on file) Christiano Lombardi MD 01/07/25 0938 Normal [facility] XR FOOT RT MIN 3Von 01-02-[address] [address] XRay Report Signed Patient: JUAN MIGUEL JENNINGS MR#: [id number] : 1950 Acct:[id number] Age/Sex: 74 / M ADM Date: 01/01/25 Loc: SURGOUT Attending Dr: Enedina Hargrove D.P.M. Ordering Physician: Enedina Hargrove D.P.M. Date of Service: 01/01/25 Procedure(s): XR foot RT min 3V Accession Number(s): [id number] cc: JORDAN DUNCAN ; Enedina Hargrove D.P.M. [place] [address] Patient Name: JUAN MIGUEL JENNINGS MRN: [facility]:[id number] date: 1950 Sex: M Assigned Patient Location: [facility] Current Patient Location: Accession/Order Number: [id number] Exam Date: 01/01/2025 15:03 Report Date: 01/01/2025 [...] Jr., D.O. 01/01/2025 3:04 PM Dictation Location: [place] [address] Electronically authenticated by: [id number] Y Date: 01/01/2025 15:04 Dictated By: John Pike M.D. Signed By: 01/01/25 1506 DD/ 1504 TD/TT: Photo Optics Technician: [facility] Radiology, Radiologist, - 01/01/2025 [place] [address] XRay Report Signed Patient: JUAN MIGUEL JENNINGS MR#: [id number] : 1950 Acct:[id number] Age/Sex: 74 / M ADM Date: 01/01/25 Loc: SURGOUT Attending Dr: Enedina Hargrove D.P.M. Ordering Physician: Enedina Hargrove D.P.M. Date of Service: 01/01/25 Procedure(s): XR foot RT min 3V Accession Number(s): [id number] cc: JORDAN DUNCAN ; Enedina Hargrove D.P.M. [address] [address] Patient Name: JUAN MIGUEL JENNINGS MRN: H:[id number] date: 1950 Sex: M Assigned Patient Location: [facility] Current Patient Location: Accession/Order Number: [id number] Exam Date: 01/01/2025 15:03 Report Date: 01/01/2025 15:04 At the request of: ENEDINA HARGROVE DPAna Procedure: XR foot RT min 3V RIGHT [...] Jr., D.O. 01/01/2025 3:04 PM Dictation Location: [place] [address] Electronically authenticated by: [id number] Y Date: 01/01/2025 15:04 Dictated By: John Pike M.D. Signed By: 01/01/25 1506 DD/ 1504 TD/TT: Photo Optics Technician: [facility] Radiology Study observation (narrative) [facility] XR FOOT RT MIN 3VOrdered By: Radiologist Radiology on 01-01-2025 [facility] Work Phone: ALL CBC WITH AUTO DIFFon BASOPHILS ABSOLUTE AUTO 0 [facility] Basophils/100 WBC (Bld) 0.6 % 0.2 - 2.0 % [facility] Eosinophils/100 WBC (Bld) 5.5 % 0.9 - 7.0 % [facility] Erythrocyte distribution width (RBC) [Ratio] 13.2 % 11.0 - 15.0 % [facility] Hematocrit (Bld) [Volume fraction] 40.2 % Low 42.0 - 54.0 % [facility] Hemoglobin (Bld) [Mass/Vol] 13.8 g/dL Low 14.0 - 18.0 g/dL [facility] IMMATURE GRANULOCYTES ABS AUTO 0.03 [facility] Immature granulocytes/100 WBC (Bld) 0.4 % 0.0 - 0.5 % [facility] Interpretation and review of laboratory results Abnormal [facility] LYMPHOCYTES ABSOLUTE AUTO 1.4 [facility] Lymphocytes/100 WBC (Bld) 19.7 % Low 20.5 - 60.0 % [facility] MCH (RBC) [Entitic mass] 33 pg [...] [facility] CHEST 2Von 12-28-[address] [address] XRay Report Signed Patient: JUAN MIGUEL JENNINGS MR#: [id number] : 1950 Acct:[id number] Age/Sex: 74 / M ADM Date: 12/28/24 Loc: [facility] Attending Dr: Enedina Hargrove D.P.M. Ordering Physician: Enedina Hargrove D.P.M. Date of Service: 12/28/24 Procedure(s): XR chest 2V Accession Number(s): [id number] cc: JORDAN DUNCAN ; Enedina Hargrove D.P.M. The [place] [address] Patient Name: JUAN MIGUEL JENNINGS MRN: [facility]:[id number] date: 1950 Sex: M Assigned Patient Location: [facility] Current Patient Location: [facility] Accession/Order Number: [id number] Exam Date: 12/28/2024 15:02 Report Date: 12/28/2024 [...] IMPRESSION: No acute process. Impression dictated by: Tomre Palacios M.D. 12/28/2024 3:03 PM Dictation Location: [place] [address] Electronically authenticated by: [id number] Y Date: 12/28/2024 15:03 Dictated By: Tomer Palacios D.O. Signed By: 12/28/24 1506 DD/ 1503 TD/TT: Photo Optics Technician: [facility] Radiology, Radiologist, MD - 12/28/2024 [place] [address] XRay Report Signed Patient: JUAN MIGUEL JENNINGS MR#: [id number] : 1950 Acct:[id number] Age/Sex: 74 / M ADM Date: 12/28/24 Loc: PST Attending Dr: Enedina Hargrove D.P.M. Ordering Physician: Enedina Hargrove D.P.M. Date of Service: 12/28/24 Procedure(s): XR chest 2V Accession Number(s): [id number] cc: JORDAN DUNCAN ; Enedina Hargrove D.P.M. [place] [address] Patient Name: JUAN MIGUEL JENNINGS MRN: [facility]:[id number] date: 1950 Sex: M Assigned Patient Location: [facility] Current Patient Location: SURGOUT Accession/Order Number: [id number] Exam Date: 12/28/2024 15:02 Report Date: 12/28/2024 [...] Palacios M.D. 12/28/2024 3:03 PM Dictation Location: [place] [address] Electronically authenticated by: [id number] Y Date: 12/28/2024 15:03 Dictated By: Tomer Palacios D.O. Signed By: 12/28/24 1506 DD/ 1503 TD/TT: Photo Optics Technician: [facility] [employer] Radiology Study observation (narrative) [facility] XR CHEST 2VOrdered By: [employer] Radiology on 12-28-2024 [facility] [employer] Work Phone: ALL LIPID PROFILE (FASTING)o n 12-26-2024 [facility] Comment on above: 3.3 - 4.4 LOW RISK 4.4 - 7.1 AVERAGE RISK 7.1 - 11.0 MODERATE RISK >11.0 HIGH RISK Cholesterol [Mass/Vol] 172 mg/dL NINF - 200 mg/dL [facility] Cholesterol in HDL [Mass/Vol] 40 mg/dL 40 - 60 mg/dL [facility] Comment on above: > or =60 mg/dl - LOW CARDIOVASCULAR RISK <40 mg/dl - HIGH CARDIOVASCULAR RISK Interpretation and review of laboratory results Abnormal [facility] Magnesium [Mass/Vol] 77 mg/dL [facility] Comment on above: <100 mg/dl OPTIMAL 100-129 mg/dl NEAR OR ABOVE OPTIMAL 130-159 mg/dl BORDERLINE HIGH 160-189 mg/dl HIGH >190 mg/dl VERY HIGH Magnesium [Mass/Vol] 55.8 mg/dL [facility] Triglyceride [Mass/Vol] 279 mg/dL High NINF - 150 mg/dL [facility] HMHP LIVER PANELon 5 Albumin [Mass/Vol] 3.5 g/dL 3.4 - 5.0 g/dL [facility] ALBUMIN GLOBULIN RATIO 1 [facility] ALP [Catalytic activity/Vol] 77 U/L 46 - 116 U/L [facility] ALT [Catalytic activity/Vol] 44 U/L 16 - 63 U/L [facility] AST [Catalytic activity/Vol] 23 U/L 15 - 37 U/L [facility] Bilirubin [Mass/Vol] 0.5 mg/dL 0.2 - 1 .0 mg/dL [facility] Bilirubin.indirect [Mass/Vol] 0.1 mg/dL 0.0 - 0.2 mg/dL [facility] Globulin (S) [Mass/Vol] 3.6 g/dL [facility] Protein [Mass/Vol] 7.1 g/dL 6.4 - 8.2 g/dL [facility] No Panel Informationon 12-26 [facility]-21-2024 Follow-up visit [id number] Juan Miguel Jennings 1950 M Date Provider Department Center 12/21/2024 40662-KFDZEORACHEL ALEJO Family History Problem Relation Age of Onset Heart disease Mother Heart disease Father Family Status - Relation Status Age at Mother Father Level of Service:24768 OR OFFICE/OUTPATIENT ESTABLISHED MOD MDM 30 MIN Normal [facility] CBC W/AUTO DIFFon 10-11-2024 ABS IMMATURE GRAN 0.03 K/uL Normal 0.00-0.06 [facility] Comment on above: Result Comment: UNLE SS OTHERWISE INDICATED, ALL TESTING PERFORMED AT: [facility] [address] [place] [address] MANAGER INTERNSHIP: JONI NI M.D. CLIA NUMBER [id number] CAP ACCREDITATION AUID [id number] ABS NEUTROPHILS 3.59 K/uL Normal 1.9-8.0 Pathology [...] <= 20 mg/L (U) [Mass/Vol] 150 mg/dL [facility] are Albumin/Creatinine DL <= 1.0 mg/L (U) [Ratio] 300 [facility] Creatinine (U) [Mass/Vol] 50 mg/dL [facility] No Panel Informationon 09-18 Interpretation and review of laboratory results Abnormal [facility] COMPREHENSIVE METABOLIC PANE Efren 09-13-2024 Albumin [Mass/Vol] 4.3 g/dL Normal 3.6-5.1 [facility] Comment on above: Performed By: #### 4 96, 0 #### [facility] [address], [address] [place] [address] [employer] Whipper: Toan Lara MD #### [id number] #### [facility]-[address] [place] [employer] Whipper: Parvin Gray Albumin/Globulin [Mass ratio] 1.5 {ratio} Normal 1.0-2.5 [facility] Comment on above: Performed By: #### 4 96, 0 #### [facility] [address], [address] [place] [address] [employer]ipper: Toan Lara MD #### [id number] #### [facility]-[place] [phone] [employer] Whipper: Parvin Gray ALP [Catalytic activity/Vol] 64 U/L Normal 35-144 [facility] Comment on above: Performed By: #### 4 96, 0 #### [facility] [address], [address] [place] [address] [employer] Whipper: Toan Lara MD #### [id number] #### [facility]-[address] [phone] [place] [employer]ipper: Parvin Gray ALT [Catalytic activity/Vol] 32 U/L Normal 9-46 [facility] Comment on above: Performed By: #### 4 96, 7600 #### [facility] [address], [address] [place] [address] [place] [employer] Whipper: Toan Lara MD #### [id number] #### [facility] [address] [place] [address] [employer] Whipper: Parvin Gray AST [Catalytic activity/Vol] 23 U/L Normal 10-35 [facility] Comment on above: Performed By: #### 4 , 7599 #### [facility] [address], [address] [place] [address] [employer] Whipper: Toan Lara MD #### [id number] #### [facility]-[place] [address] [employer]ipper: Parvin Gray Bilirubin [Mass/Vol] 0.7 mg/dL Normal 0.2-1.2 [facility] Comment on above: Performed By: #### 4 , 7599 #### [facility] [address], [address] [place] [address] [employer] Whipper: Toan Lara MD #### [id number] #### [facility]-[place] [address] [employer]ipper: Parvin Gray BUN/CREATININE RATIO SEE NOTE: Normal 6-22 [facility] Comment on above: Result Comment: Not Reported: BUN and Creatinine are within reference range. Performed By: #### 4 , 7599 #### [facility] [address], [address] [place] [address] [employer]ipper: Toan Lara MD #### [id number] #### [facility] [address] [place], [place] [id number] [employer] Whipper: Parvin Gray Calcium [Mass/Vol] 9.3 mg/dL Normal 8.6-10.3 [facility] Comment on above: Performed By: #### 4 , 7599 #### [facility] [address], [address] [place] [address] [employer] Whipper: Toan Lara MD #### [id number] #### [facility] [address] [place] [address] [employer] Whipper: Parvin Ordoñez Flati Chloride [Moles/Vol] 105 mmol/L Normal 98-110 [facility] Comment on above: Performed By: #### 4 96, 7600 #### [facility] [address], [address] [place] [address] [employer] Whipper: Toan Lara MD #### [id number] #### [facility] [address] [place], [place] [phone] [employer] Whipper: Parvin Ordoñez Flati CO2 [Moles/Vol] 26 mmol/L Normal 20-32 [facility] Comment on above: Performed By: #### 4 96, 0 #### [facility] [address], [address] [place] [address] [employer] Whipper: Toan Lara MD #### [id number] #### [facility]-[address] [place] [employer] Whipper: Parvin Felixi Creatinine [Mass/Vol] 0.84 mg/dL Normal 0.70-1.28 [facility] Comment on above: Performed By: #### 4 96, 0 #### [facility] [address], [address] [place] [address] [employer] Whipper: Toan Lara MD #### [id number] #### [facility] [address] [place], [place] [phone] [employer] Neck Whipper: Parvin Felixi GFR/1.73 sq M.predicted among non-blacks MDRD (S/P/Bld) [Vol rate/Area] 93 mL/min/{1.73_m2} Normal > OR = 60 [facility] Comment on above: Performed By: #### 4 96, 7600 #### [facility] [address], [address] [place], [place] [id number] [employer] Whipper: Toan Lara MD #### [id number] #### [facility] [address] [place] [address] [employer] Whipper: Parvin Gray Globulin (S) [Mass/Vol] 2.8 g/dL Normal 1.9-3.7 [facility] Comment on above: Performed By: #### 4 , 7599 #### [facility] [address], [address] [place] [address] [employer] Whipper: Toan Lara MD #### [id number] #### [facility] [address] [place], [place] [phone] [employer] Whipper: Parvin Gray Glucose [Mass/Vol] 129 mg/dL High 65-99 [facility] Comment on above: Result Comment: Fasting reference interval For someone without known diabetes, a glucose value >125 mg/dL indicates that they may have diabetes and this should be confirmed with a follow-up test. Performed By: #### 4 7599 #### [facility] [address], [address] [place] [address] [employer] Whipper: Toan Lara MD #### [id number] #### [facility] [address] [place], [place] [phone] [employer] Whipper: Parvin Gray Potassium [Moles/Vol] 4.7 mmol/L Normal 3.5-5.3 [facility] Comment on above: Performed By: #### 4 7599 #### [facility] [address], [address] [place] [address] [employer] Whipper: Toan Lara MD #### [id number] #### [facility] [address] [place] [phone] [employer] Whipper: Parvin Felixi Protein [Mass/Vol] 7.1 g/dL Normal 6.1-8.1 [facility] Comment on above: Performed By: #### 4 , 7599 #### [facility] [address], [address] [place] [address] [employer] Whipper: Toan Lara MD #### [id number] #### [facility] [place] [address] [employer] Whipper: Parvin Gray Sodium [Moles/Vol] 140 mmol/L Normal 135-146 [facility] Comment on above: Performed By: #### 4 96, 7600 #### [facility] [address], [address] [place] [address] [employer] Whipper: Toan Lara MD #### [id number] #### [facility] [address] [place] [phone] [employer] Whipper: Parvin Gray Urea nitrogen [Mass/Vol] 23 mg/dL Normal 7-25 [facility] Comment on above: Performed By: #### 4 96, 0 #### [facility] [address], [address] [place] [address] [employer]ipper: Toan Lara MD #### 27626 #### [facility] [address] [place] [phone] [employer] Whipper: Parvin Gray HEMOGLOBIN A1con 09-13-2024 HEMOGLOBIN A1c [...] #### 4 , 0 #### [facility] [address], [address] [place] [address] [employer] Whipper: Toan Lara MD #### [id number] #### [facility] [address] [place] [phone] [employer]ipper: Parvin Gray LIPID PANEL, STANDARDon 09-04 Cholesterol [Mass/Vol] 242 mg/dL High <200 [facility] Comment on above: Order Comment: FASTI NG:YES FASTING: YES Performed By: #### 4 , 7599 #### [facility] [address] [place] [address], [address] [place], [place] [phone] [employer]ipper: Toan Lara MD #### [id number] #### [facility] [address] [place] [phone] [employer]ipper: Parvin Felixi Cholesterol in HDL [Mass/Vol] 40 mg/dL Normal > OR = 40 [facility] Comment on above: Order Comment: FASTI NG:YES FASTING: YES Performed By: #### 4 , 7599 #### [facility] [address], [address] [place], [place] [address] [employer] Whipper: Toan Lara MD #### [id number] #### [facility] [address] [place] [phone] [employer] Whipper: Parvin Felixi Cholesterol in LDL [Mass/Vol] 142 mg/dL High [facility] Comment on above: Order Comment: FASTI NG:YES FASTING: YES Result Comment: Refe rence range: <100 Desirable range <100 mg/dL for primary prevention; <70 mg/dL for patients with CHD or diabetic patients with > or = 2 CHD risk factors. LDL-C is now calculated using the Deion-Ghanshyam calculation, which is a validated novel method providing better accuracy than the Friedewald equation in the estimation of LDL-C. Deion TORIBIO et al. MAHENDRA. 2013;310(19): 1851-9281 (http://education.Dmailer.Antenova/faq/CDP345) Performed By: #### 4 , 7599 #### [facility] [address], [address] [place] [address] [employer] Whipper: Toan Lara MD #### [id number] #### [facility] [address] [place] [phone] [employer] Whipper: Parvin Gray Cholesterol.total/Ch olesterol in HDL [Mass ratio] 6.1 {ratio} High <5.0 [facility] Comment on above: Order Comment: FASTI NG:YES FASTING: YES Performed By: #### 4 , 0 #### [facility] [address], [address] [place] [address] [employer] Whipper: Toan Lara MD #### [id number] #### [facility] [address] [place] [phone] [employer] Whipper: Parvin Gray NON HDL CHOLESTEROL 202 mg/dL (calc) High <130 [facility] Comment on above: Order Comment: FASTI NG:YES FASTING: YES Result Comment: For patients with diabetes plus 1 major ASCVD risk factor, treating to a non-HDL-C goal of <100 mg/dL (LDL-C of <70 mg/dL) is considered a therapeutic option. Performed By: #### 4 , 0 #### [facility] [address], [address] [place] [address] [employer] Whipper: Toan Lara MD #### [id number] #### [facility] [address] [place] [phone] [employer] Whipper: Parvin Gray Triglyceride [Mass/Vol] 389 mg/dL High <150 [facility] Comment on above: Order Comment: FASTI NG:YES FASTING: YES Result Comment: If a non-fasting specimen was collected, consider repeat triglyceride testing on a fasting specimen if clinically indicated. Aaliyah et al. J. of Clin. Lipidol. 2015;9:129-169. Performed By: #### 4 , 0 #### [facility] [address], [address] [place] [address] [employer] Whipper: Toan Lara MD #### [id number] #### [facility] [address] [place] [phone] [employer] Whipper: Parvin Gray Office Visiton 07-16-2024 Follow-up visit [id number] Juan Miguel Jennings 1950 Date Provider Department [place] 07/16/2024 ANUJA ARMSTRONG [facility] Family History Problem Relation Age of Onset Heart disease Mother Heart disease Father Family Status - Relation Status Age at Mother Father Level of Service:08076 OR OFFICE/OUTPATIENT ESTABLISHED MOD MDM 30 MIN Normal [...] GRAN 0.04 K/uL Normal 0.00-0.06 [facility] [facility] Comment on above: Result Comment: UNLE SS OTHERWISE INDICATED, ALL TESTING PERFORMED AT: [facility] [address] [place] [address] MANAGER INTERNSHIP: JONI NI M.D. CLIA NUMBER [id number] CAP ACCREDITATION AUID [id number] ABS NEUTROPHILS 5.59 K/uL Normal 1.9-8.0 Pathology [...] Please schedule him for follow-up with Dr. uHddleston in 6-8 weeks. Thank you Spoke with patient and informed him of above message from [facility]. He agrees to start isosorbide and amlodipine. Sent to [facility] per his request. He will see Dr. Huddleston in clinic on 07/16/2024 in [place]. Do you need me to send something to [facility] or did you already? Normal [facility] Documentationon 06-08-2024 Documentation [id number] Juan Miguel Jennings 1950 M Date Provider Department Center 06/08/2024 25401-EHCMIRON DU HVCANTICOAG [place] HeartVAS Family History Problem Relation Age of Onset Heart disease Mother Heart disease Father Family Status - Relation Status Age at Mother Father Reason for Visit and Comments: PharmD Cardiology Consult [Other] Normal [facility] Orders Onlyon 06-02-2024 Orders Only [id number] Juan Miguel Jennings 1950 M Date Provider Department Center 06/02/2024 Tessa-PAUL CLEMONS [facility] Family History Problem Relation Age of Onset Heart disease Mother Heart disease Father Family Status - Relation Status Age at Mother Father Normal [facility] Reminderson 06-01-2024 Reminders Reminders - From: Bertha Winter To: DEBBIE Mauricio Saavedra; Sent: 05/21/2024 12:20:20 EST Show up: [...] ) Other: PROVIDER RELATED REMINDER:_ ( ) Clerk Supervisor ( ) Call Pharmacy ( ) Call Lab ( ) Other: Special Instructions:_ Comments:_ Results in chart for review Normal [facility] ALL CBC WITH AUTO DIFFon [...] 15 % Low 20.5 - 60.0 % [facility] MCH (RBC) [Entitic mass] 32.9 pg 25.9 - 34.0 pg [facility] MCHC (RBC) [Mass/Vol] 33.8 g/dL 29.9 - 35.2 g/dL [facility] MCV (RBC) [Entitic vol] 97.4 fL High 80.0 - 94.0 fL [facility] MONOCYTES ABSOLUTE AUTO 0.9 High [facility] Monocytes/100 WBC (Bld) 12.2 % High 1.7 - 12.0 % [facility] NEUTROPHILS ABSOLUTE AUTO 4.8 [facility] Neutrophils/100 WBC (Bld) 68.1 % 43.0 - 75.0 % [facility] Platelet mean volume (Bld) [Entitic vol] 12.5 fL 9.5 - 13.5 fL [facility] Healthc are [facility] EO # 0.3 [facility] PLT 144 Low [facility] RBC 5.44 [facility] WBC 7.1 [facility] Ambulatory Visit Summaryon 1 07-22-2023 Ambulatory Visit Summary Ambulatory Visit Summary MILAGROSJUAN MIGUEL ALMANZA Stephanie :1950 Visit Date:05/21/2024 Ambulatory Visit Instructions Your Diagnosis Hypogonadism Elevated PSA BPH with urinary obstruction OAB (overactive bladder) Your Care Team Attending Physician - KERI NOLASCO, Topher Ordoñez Primary Care Physician - DAKOTA NOLASCO, JORDAN Brown This Is Your Medications List [facility] Prescription (METOPROLOL TARTRATE [...] Urology [address], [place] [address]- Medications What How Much When Instructions Unchanged [...] PSA History of colon cancer Hx of correction use of blood thinners Hyperlipidemia Hypertension Hypogonadism [...] ??? Ea (more content not included)... Normal [facility] Urology Office/Clinic Noteon 05-21-2024 Urology Office/Clinic [...] Has not been able to donate blood, [place] will not let him. Pt will talk to his oncologist in [place] to see if there is another way he can donate blood. Shares he got CBC drawn on 05/[address] [facility], no results on [facility], called lab and they did not [...] onc to facilitate blood donation/get permission for [place]. 2. Elevated PSA (R97.20: Elevated prostate specific [...] Urology [address], [place] [address]- Additional Instructions: f/u pending HGB/CBC and blood [...] PSA History of colon cancer Hx of correction use of blood thinners Hyperlipidemia Hypertension Hypogonadism [...] 1 tab(s), (more content not included)... Normal [facility] Comment on above: Result Comment: Elec tronically Signed By: Topher SAAVEDRA MD\.br\Date and Time Signed: 05/21/24 12:18 EST\.br\Electronically Co-Signed By: Bertha Winter\.br\Date and Time Co-Signed: 05/21/24 12:17 EST ALL LIPID PROFILE (FASTING)o n 05-08-2024 CHOL HDL RATIO 4.5 [facility] Comment on above: 3.3 - 4.4 LOW RISK 4.4 - 7.1 AVERAGE RISK 7.1 - 11.0 MODERATE RISK >11.0 HIGH RISK Cholesterol [Mass/Vol] 189 mg/dL NINF - 200 mg/dL [facility] Cholesterol in HDL [Mass/Vol] 42 mg/dL 40 - 60 mg/dL [facility] Comment on above: > or =60 mg/dl - LOW CARDIOVASCULAR RISK <40 mg/dl - HIGH CARDIOVASCULAR RISK LDL CHOLESTEROL CALCULATED 124.2 mg/dL [facility] Comment on above: <100 mg/dl OPTIMAL 100-129 mg/dl NEAR OR ABOVE OPTIMAL 130-159 mg/dl BORDERLINE HIGH 160-189 mg/dl HIGH >190 mg/dl VERY HIGH Magnesium [Mass/Vol] 22.8 mg/dL [facility] Triglyceride [Mass/Vol] 114 mg/dL NINF - 150 mg/dL [facility] e Office Visiton 05-02-2024 Follow-up visit [id number] Juan Miguel Jennings 1950 M Date Provider Department Center 05/02/2024 [facility] Family History Problem Relation Age of Onset Heart disease Mother Heart disease Father Family Status - Relation Status Age at Mother Father Level of Service:98488 OR OFFICE/OUTPATIENT ESTABLISHED MOD MDM 30 MIN Reason for Visit and Comments: Coronary Artery Disease [187] Hypertension [900471] Normal [facility] Ambulatory Visit Summaryon 1 06-23-2023 Ambulatory Visit Summary Ambulatory Visit Summary JUAN MIGUEL JENNINGS :1950 Visit Date:04/23/2024 Ambulatory Visit Instructions Your Diagnosis Hypogonadism Your Care Team Attending Physician - KERI NOLASCO, Topher Ordoñez Primary Care Physician - DAKOTA NOLASCO, JORDAN Brown This Is Your Medications List [facility] Prescription (METOPROLOL TARTRATE [...] AM EST With: Where: [facility] [address] [address]- Tuesday 10:45 AM EST With: KERI NOLASCO, Topher Ordoñez Where: [facility] [address] [address]- Medications What How Much When Instructions Unchanged [...] PSA History of colon cancer Hx of correction use of blood thinners Hyperlipidemia Hypertension Hypogonadism [...] you for choosing us for your care. 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 Normal [facility] [facility] W/AUTO DIFFon 02-22-2024 ABS [...] on above: Result Comment: [facility] [address] [address] CLIA No. [id number] CAP Accreditation No. [id number] Commercial Loan Underwriter: Shaunna Dee M.D. Platelets (Bld) [#/Vol] 128 10*3/uL Low 130-400 [facility] RBC (Bld) [#/Vol] 5.56 10*6/uL Normal 4.50-6.10 [facility] WBC (Bld) [#/Vol] 6.7 10*3/uL [...] Inc Comment on above: Result Comment: [facility] [address] [place] [address] CLIA No. [id number] CAP Accreditation No. [id number] Commercial Loan Underwriter: Shaunna Dee M.D. Platelets (Bld) [#/Vol] [...] [Mass/Vol] 112 mg/dL Critically high 74-106 [facility] Comment on above: Performed By: #### P OCGLUC #### [facility] [address] [place] [address] Dr. Patria Sanders CBC AUTO DIFFon 09-15-2022 BASO # 0.0 103/ul Normal 0.0-0.1 [facility] Comment on above: Performed By: #### C BC #### [facility] [address] [place] [address] Dr. Patria Sanders Basophils/100 WBC (Bld) 0.5 % Normal 0.2-2.0 [facility] Comment on above: Performed By: #### C BC #### [facility] [address] [place] [address] Dr. Patria Sanders EO # 0.3 103/ul Normal 0.0-0.7 [facility] Comment on above: Performed By: #### C BC #### [facility] [address] [place] [address] Dr. Patria Sanders Eosinophils/100 WBC (Bld) 3.2 % Normal 0.9-7.0 [facility] Comment on above: Performed By: #### C BC #### [facility] [address] [place] [address] Dr. Patria Sanders Erythrocyte distribution width (RBC) [Ratio] 14.5 % Normal 11.0-15.0 [facility] Comment on above: Performed By: #### C BC #### [facility] [address] [place] [address] Dr. Patria Sanders Hematocrit (Bld) [Volume fraction] 49.0 % Normal 42.0-54.0 [facility] Comment on above: Performed By: #### C BC #### [facility] [address] [address] [address] Patria Sanders Hemoglobin (Bld) [Mass/Vol] 16.7 g/dL Normal 14.0-18.0 [facility] Comment on above: Performed By: #### C BC #### [facility] [address] [address] [address] Patria Sanders IG # 0.03 10e3/ul Normal 0.00-0.03 [facility] Comment on above: Performed By: #### C BC #### [facility] [address] [place] [address] Dr. Patria Sanders IG % 0.4 % Normal 0.0-0.5 [facility] Comment on above: Performed By: #### C BC #### [facility] [address] [place] [address] Dr. Patria Sanders LYMPH # 1.1 103/ul Critically low 1.2-3.8 [facility] Comment on above: Performed By: #### C BC #### [facility] [address] [place] [address] Dr. Patria Sanders Lymphocytes/100 WBC (Bld) 14.5 % Critically low 20.5-60.0 [facility] Comment on above: Performed By: #### C BC #### [facility] [address] [place] [address] Dr. Patria Sanders MANUAL DIFF REQ NO Normal [facility] Comment on above: Performed By: #### C BC #### [facility] [address] [place] [address] Dr. Patria Sanders MCH (RBC) [Entitic mass] 32.6 pg Normal 25.9-34.0 [facility] Comment on above: Performed By: #### C BC #### [facility] [address] [place] [address] Dr. Patria Sanders MCHC (RBC) [Mass/Vol] 34.1 g/dL Normal 29.9-35.2 [facility] Comment on above: Performed By: #### C BC #### [facility] [address] [address] [address] Patria Sanders MCV (RBC) [Entitic vol] 95.5 fL Critically high 80.0-94.0 [facility] Comment on above: Performed By: #### C BC #### [facility] [address] [address] [address] Patria Sanders MONO # 0.8 103/ul Normal 0.3-0.8 [facility] Comment on above: Performed By: #### C BC #### [facility] [address] [address] [address] Patria Sanders Monocytes/100 WBC (Bld) 9.6 % Normal 1.7-12.0 [facility] Comment on above: Performed By: #### C BC #### [facility] [address] [place] [address] Dr. Patria Sanders NEUT # 5.6 103/ul Normal 1.4-6.5 [facility] Comment on above: Performed By: #### C BC #### [facility] [address] [place] [address] Dr. Patria Sanders Neutrophils/100 WBC (Bld) 71.8 % Normal 43.0-75.0 [facility] Comment on above: Performed By: #### C BC #### [facility] [address] [place] [address] Dr. Patria Sanders Platelet mean volume (Bld) [Entitic vol] 11.6 fL Normal 9.5-13.5 [facility] Comment on above: Performed By: #### C BC #### [facility] [address] [place] [address] Dr. Patria Sanders PLT 154 103/ul Normal 150-450 [facility] Comment on above: Performed By: #### C BC #### [facility] [address] [place] [address] Dr. Patria Sanders RBC 5.13 106/ul Normal 4.70-6.10 [facility] Comment on above: Performed By: #### C BC #### [facility] [address] [place] [address] Dr. Patria Sanders WBC 7.8 103/ul Normal 4.0-11.0 [facility] Comment on above: Performed By: #### C BC #### [facility] [address] [place] [address] Dr. Patria Sanders PROF CHEM 8 (BAS METB)on Anion gap [Moles/Vol] 11.4 mmol/L Normal [facility] Comment on above: Performed By: #### B MP #### [facility] [address] [place] [address] Dr. Patria Sanders Calcium [Mass/Vol] 9.1 mg/dL Normal 8.5-10.1 [facility] Comment on above: Performed By: #### B MP #### [facility] [address] [place] [address] Dr. Patria Sanders Chloride [Moles/Vol] 104 mmol/L Normal 98-107 [facility] Comment on above: Performed By: #### B MP #### [facility] [address] [place] [address] Dr. Patria Sanders CO2 [Moles/Vol] 28.7 mmol/L Normal 21.0-32.0 [facility] Comment on above: Performed By: #### B MP #### [facility] [address] [place] [address] Dr. Patria Sanders Creatinine [Mass/Vol] 0.80 mg/dL Normal 0.70-1.30 [facility] Comment on above: Performed By: #### B MP #### [facility] [address] [place] [address] Dr. Patria Sanders EGFR-AF CYPRIOT >60 Normal >=60 [facility] Comment on above: Performed By: #### B MP #### [facility] [address] [place] [address] Dr. Patria Sanders EGFR-NON AF CYPRIOT >60 Normal >=60 [facility] Comment on above: Performed By: #### B MP #### [facility] [address] [place] [address] Dr. Patria Sanders Glucose [Mass/Vol] 101 mg/dL Normal 74-106 [facility] Comment on above: Performed By: #### B MP #### [facility] [address] [address] [address] Patria Sanders Potassium [Moles/Vol] 4.1 mmol/L Normal 3.5-5.1 [facility] Comment on above: Performed By: #### B MP #### [facility] [address] [address] [address] Patria Sanders Sodium [Moles/Vol] 140 mmol/L Normal 136-145 [facility] Comment on above: Performed By: #### B MP #### [facility] [address] [place] [address] Dr. Patria Sanders Urea nitrogen [Mass/Vol] 11.0 mg/dL Normal 7.0-18.0 [facility] Comment on above: Performed By: #### B MP #### [facility] [address] [address] [address] Patria Sanders Urea nitrogen/Creatinine [Mass ratio] 13.8 mg/mg Normal [facility] Comment on above: Performed By: #### B MP #### [facility] [address] [place] [address] Dr. Patria Sanders PROTIMEon 09-15-2022 INR Coag (PPP) [Relative time] 1.02 {INR} Normal [facility] Comment on above: Performed By: #### P TT, PT #### [facility] [address] [place] [address] Dr. Patria Sanders INR GUIDELINES SEE BELOW Normal [facility] Comment on above: Result Comment: SANTO RED INR: 2.0 - 3.0 CONDITIONS NOT LISTED BELOW 2.5 - 3.5 FOR PROSTHETIC HEART VALVE REPLACEMENT 2.5 - 3.5 RECURRENT THROMBOSIS Performed By: #### P TT, PT #### [facility] [address] [place] [address] Dr. Patria Sanders PT Coag (PPP) [Time] 10.8 s Normal 9.0-11.6 [facility] Comment on above: Performed By: #### P TT, PT #### [facility] [address] [place], [place] [address] Dr. Patria Sanders PTTon 09-15-2022 aPTT Coag (Bld) [Time] 32.0 s Normal 22.3-36.2 [facility] Comment on above: Performed By: #### P TT, PT #### [facility] [address] [place], [place] [address] Dr. Patria Sanders Covid-19 PCR (CVDTB)on 01-04 SARS-CoV-2 (COVID-19) RNA NANCY+probe Ql (Unsp spec) Not detected Normal NOT DETECTED [facility] Comment on above: Result Comment: This test is not yet approved or cleared by the [place] FDA. When there are no FDA-approved or cleared tests available, and other criteria are met, FDA can make tests available under an emergency access mechanism called an Emergency Use Authorization (EUA). The EUA for this test is supported by the Irene of Health and Human Service's (HHS's) declaration [...] SARS-CoV-2. Performed By: #### C VDTBH #### [facility] [address] [place], [place] [address] Dr. Patria Sanders Hemoglobin A1Con 09-24-2021 EAG 128.37 Normal [facility] Comment on above: Performed By: #### A 1C #### [facility] [address], [place] [id number] HbA1c (Bld) [Mass fraction] 6.1 % High 4.0-6.0 [facility] Comment on above: Performed By: #### A 1C #### [facility] [address] [place], [place] [id number] Testosteroneon 05-11-2021 TESTOS 314.70 ng/dL Normal 193.00-740.00 [facility] Comment on above: Performed By: #### T EST #### [facility] [address] [place], [place] [id number] Progress Noteon 10-12-2017 HIM IP Note OR Asset Protection Representative Normal [facility] Vital Signs Date Time Vital Sign Value Performing Clinician Facility 09-18-2024 09:24-0400 Body height 198.1 cm Jordan Duncan MD Work Phone: [facility] 09-18-2024 09:24-0400 Body mass index (BMI) [Ratio] 40.1 kg/m2 Jordan Duncan MD Work Phone: [facility] 09-18-2024 09:24-0400 Body weight 157.4 kg Jordan Duncan MD Work Phone: [facility] 09-18-2024 09:24-0400 Diastolic blood pressure 70 mm[Hg] Jordan Duncan MD Work Phone: [facility] 09-18-2024 09:24-0400 Heart rate 63 /min Jordan Duncan MD Work Phone: [facility] 09-18-2024 09:24-0400 SaO2% (BldA) [Mass fraction] 98 % Jordan Duncan MD Work Phone: [facility] 09-18-2024 09:24-0400 Systolic blood pressure 124 mm[Hg] Jordan Dnucan MD Work Phone: [facility] 07-25-2024 10:01-0500 Body height 198.1 cm Jordan Duncan MD Work Phone: [facility] 07-25-2024 10:01-0500 Body mass index (BMI) [Ratio] 39.64 kg/m2 Jordan Duncan MD Work Phone: [facility] 07-25-2024 10:01-0500 Body weight 155.58 kg Jordan Duncan MD Work Phone: [facility] 07-25-2024 10:01-0500 Diastolic blood pressure 74 mm[Hg] Jordan Duncan MD Work Phone: [facility] 07-25-2024 10:01-0500 Heart rate 58 /min Jordan Duncan MD Work Phone: [facility] 07-25-2024 10:01-0500 SaO2% (BldA) [Mass fraction] 98 % Jordan Dnucan MD Work Phone: [facility] 07-25-2024 10:01-0500 Systolic blood pressure 120 mm[Hg] Jordan Duncan MD Work Phone: [facility] 07-05-2024 13:45-0500 Diastolic blood pressure 72 mm[Hg] Mth[facility] Schedule [facility] 07-05-2024 13:45-0500 Heart rate 77 /min [facility] [facility] 07-05-2024 13:45-0500 Systolic blood pressure 135 mm[Hg] Mth[facility] Schedule [facility] 07-05-2024 13:16-0500 Body temperature 97.5 [degF] Mth[facility] Schedule [facility] 07-05-2024 13:16-0500 Respiratory rate 18 /min [facility] Schedule [facility] [facility] 05-21-2024 10:44-0500 Blood Pressure Location Topherpeter SAAVEDRA [facility] 05-21-2024 10:44-0500 Body temperature 98.6 [degF] Topher SAAVEDRA [facility] 05-21-2024 10:44-0500 Diastolic blood pressure 79 mm[Hg] Topher SAAVEDRA [facility] 05-21-2024 10:44-0500 Heart rate 58 /min Topher SAAVEDRA [facility] 05-21-2024 10:44-0500 Respiratory rate 16 /min Topher SAAVEDRA [facility] 05-21-2024 10:44-0500 Systolic blood pressure 133 mm[Hg] Topher SAAVEDRA [facility] 05-15-2024 10:21-0500 Body height 198.1 cm Brody Alexandria DPM Work Phone: [facility] 05-15-2024 10:21-0500 Body mass index (BMI) [Ratio] 40.45 kg/m2 Brody Rusher DPM Work Phone: [facility] 05-15-2024 10:21-0500 Body weight 158.76 kg Brody Rusher DPM Work Phone: [facility] 04-23-2024 10:41-0500 Body height 198.1 cm Brody Rusher DPM Work Phone: [facility] 04-23-2024 10:41-0500 Body mass index (BMI) [Ratio] 40.45 kg/m2 Brody Rusher DPM Work Phone: [facility] 04-23-2024 10:41-0500 Body weight 158.76 kg Brody Rusher DPM Work Phone: [facility] 03-29-2024 12:49-0400 Body height 198.1 cm Brody Rusher DPM Work Phone: [facility] 03-29-2024 12:49-0400 Body mass index (BMI) [Ratio] 40.45 kg/m2 Brody Rusher DPM Work Phone: [facility] 03-29-2024 12:49-0400 Body weight 158.76 kg Brody Rusher DPM Work Phone: [facility] 03-27-2024 14:00-0400 Body height 198.1 cm Jordan Duncan MD Work Phone: [facility] 03-27-2024 14:00-0400 Body mass index (BMI) [Ratio] 40.45 kg/m2 Jordan Duncan MD Work Phone: [facility] 03-27-2024 14:00-0400 Body weight 158.76 kg Jordan Duncan MD Work Phone: [facility] 03-27-2024 14:00-0400 Diastolic blood pressure 76 mm[Hg] Jordan Duncan MD Work Phone: [facility] 03-27-2024 14:00-0400 Heart rate 71 /min Jordan Duncan MD Work Phone: [facility] 03-27-2024 14:00-0400 SaO2% (BldA) [Mass fraction] 97 % Jordan Duncan MD Work Phone: [facility] 03-27-2024 14:00-0400 Systolic blood pressure 128 mm[Hg] Jordan Duncan MD Work Phone: [facility] 03-13-2024 09:41-0400 Body height 198.1 cm Brody Ibrahim DPM Work Phone: [facility] 03-13-2024 09:41-0400 Body mass index (BMI) [Ratio] 40.45 kg/m2 Brody Ibrahim DPM Work Phone: [facility] 03-13-2024 09:41-0400 Body weight 158.76 kg Brody Ibrahim DPM Work Phone: [facility] 12-05-2023 10:38-0400 Blood Pressure Location Topher SAA[facility] 12-05-2023 10:38-0400 Body temperature 98.6 [degF] Topher SAAVED[facility] 12-05-2023 10:38-0400 Diastolic blood pressure 86 mm[Hg] Topher SAAVEDRA [facility] 12-05-2023 10:38-0400 Heart rate 69 /min Topher SAA[facility]ED[facility] 12-05-2023 10:38-0400 Respiratory rate 16 /min Topher SAAVED[facility] 12-05-2023 10:38-0400 Systolic blood pressure 136 mm[Hg] Topher SAAVEDRA [facility] 07-19-2023 10:37-0500 Body height 198.1 cm Brody Alexandria DPM Work Phone: [facility] 07-19-2023 10:37-0500 Body mass index (BMI) [Ratio] 39.87 kg/m2 Brody Ibrahim DPM Work Phone: [facility] 07-19-2023 10:37-0500 Body weight 156.49 kg Brody Alexandria DPM Work Phone: [facility] 06-20-2023 10:33-0500 Blood Pressure Location Topher [facility]ED[facility] 06-20-2023 10:33-0500 Diastolic blood pressure 86 mm[Hg] Topher SAAVEDRA [facility] 06-20-2023 10:33-0500 Heart rate 70 /min Topher S[facility]ED[facility] 06-20-2023 10:33-0500 Respiratory rate 16 /min Topher SAAVED[facility] 06-20-2023 10:33-0500 Systolic blood pressure 139 mm[Hg] Topher SAAVEDRA [facility] 11-05-2022 10:12-0400 Blood Pressure Location Topher S[facility]ED[facility] 11-05-2022 10:12-0400 Diastolic blood pressure 78 mm[Hg] Topher SAAVEDRA [facility] 11-05-2022 10:12-0400 Heart rate 68 /min Topher SAAVEDRA [facility] 11-05-2022 10:12-0400 Respiratory rate 16 /min Topher SAAVEDRA [facility] 11-05-2022 10:12-0400 Systolic blood pressure 130 mm[Hg] Topher SAAVEDRA [facility] 11-03-2022 14:34-0400 Body temperature 97.5 [degF] Mthz Schedule [facility] 11-03-2022 14:34-0400 Diastolic blood pressure 77 mm[Hg] Mthz Schedule [facility] 11-03-2022 14:34-0400 Heart rate 72 /min [facility] Schedule [facility] 11-03-2022 14:34-0400 Respiratory rate 18 /min Mth[facility] Schedule [facility] 11-03-2022 14:34-0400 Systolic blood pressure 140 mm[Hg] Mthz Schedule [facility] 06-18-2022 08:55-0500 Blood Pressure Location Topher SAAVEDRA [facility] 06-18-2022 08:55-0500 Diastolic blood pressure 82 mm[Hg] Topher SAAVEDRA [facility] 06-18-2022 08:55-0500 Heart rate 80 /min Topher SAAVED[facility] 06-18-2022 08:55-0500 Respiratory rate 16 /min Topher SAAVED[facility] 06-18-2022 08:55-0500 Systolic blood pressure 132 mm[Hg] Topher SAAVEDRA [facility] 05-17-2022 09:43-0500 Blood Pressure Location Topher SAAVED[facility] 05-17-2022 09:43-0500 Diastolic blood pressure 92 mm[Hg] Topher SAAVEDRA [facility] 05-17-2022 09:43-0500 Heart rate 63 /min Topher SAA[facility]ED[facility] 05-17-2022 09:43-0500 Systolic blood pressure 143 mm[Hg] Topher SAAVED[facility] 02-01-2022 09:48-0400 Blood Pressure Location Topher SAAVEDRA [facility] 02-01-2022 09:48-0400 Diastolic blood pressure 66 mm[Hg] Topher SAAVEDRA [facility] 02-01-2022 09:48-0400 Heart rate 84 /min Topher SAAVED[facility] 02-01-2022 09:48-0400 Respiratory rate 16 /min Topher SAAVEDRA [facility] 02-01-2022 09:48-0400 Systolic blood pressure 98 mm[Hg] Topher SAAVEDRA [facility] 01-28-2022 13:48-0400 Diastolic blood pressure 76 mm[Hg] [facility] Schedule KITTY VELIZY [facility] 01-28-2022 13:48-0400 Heart rate 56 /min [facility] 01-28-2022 13:48-0400 Respiratory rate 18 /min [facility] Schedule KITTY QUIROZ [facility] 01-28-2022 13:48-0400 Systolic blood pressure 135 mm[Hg] [facility] Schedule KITTY QUIROZ [facility] 01-28-2022 13:25-0400 Body temperature 97.39 [degF] [facility] Schedule KITTY QUIROZ [facility] 10-22-2020 12:25-0400 Body temperature 97.81 [degF] [facility]: 10-22-2020 12:25-0400 Heart rate 67 /min [facility] Schedule [facility] Work Phone: 07-27-2019 08:03-0500 Body Temperature 96.3 [degF] [facility] Schedule [place] 07-27-2019 08:03-0500 BP Diastolic 80 mm[Hg] [facility] [place] 07-27-2019 08:03-0500 BP Systolic 129 mm[Hg] [facility] [place] 07-27-2019 08:03-0500 Pulse (Heart Rate) 63 /min [facility] [place] [place] 07-27-2019 08:03-0500 Respiratory Rate 20 /min [facility] Schedule [employer] 03-13-2019 08:02-0400 Body Temperature 96.69 [degF] [facility]th[facility] Schedule [place] [employer] 03-13-2019 08:02-0400 BP Diastolic 83 mm[Hg] [facility] [place] 03-13-2019 08:02-0400 BP Systolic 162 mm[Hg] [facility] [place] [facility] [place] 03-13-2019 08:02-0400 Pulse (Heart Rate) 74 /min [facility] [place] [place] 03-13-2019 08:02-0400 Respiratory Rate 20 /min [facility] Schedule [place] [employer] 01-12-2019 08:03-0400 Body Temperature 96.91 [degF] [facility] [place] [place] 01-12-2019 08:03-0400 BP Diastolic 87 mm[Hg] [facility]th[facility] Schedule [facility] [place] [facility] [place] 01-12-2019 08:03-0400 BP Systolic 152 mm[Hg] Mth Schedule [facility] [place] [facility] [place] 01-12-2019 08:03-0400 Pulse (Heart Rate) 63 /min [facility] [place] [place] 01-12-2019 08:03-0400 Respiratory Rate 20 /min [facility] Schedule [facility] [place] Encounters Encounter Date Encounter Type Care Provider Facility Start: 08-09-2025 ambulatory Topher SAAVEDRA Facili ty:[facility] Start: 02-08-2025 End: 02-08-2025 ambulatory Topher SAAVEDRA Facility:[facility] Start: 02-08-2025 End: 02-08-2025 Patient encounter procedure Topher SAAVEDRA [facility] Start: 01-15-2025 End: 01-15-2025 Adolph Duncan MD Work Phone: [facility] [address] [facility] Comment on above: Dyspepsia Start: 01-14-2025 [...] Start: 01-01-2025 End: 01-01-2025 ambulatory Enedina Hargrove [facility] Work Phone: Start: 01-01-2025 End: 01-01-2025 Departed Referred Enedina Hargrove [facility] Start: 12-28-2024 End: 12-28-2024 Clinisync Result [...] Department Unsolicited Start: 12-21-2024 End: 12-21-2024 ambulatory [facility] Start: 12-21-2024 End: 12-21-2024 Encounter for other preprocedural examination [facility] Start: 12-03-2024 End: 12-03-2024 Telephone encounter Jordan Ducnan MD Work Phone: [facility] 100 [...] insulin (CMS/HCC); Type 2 diabetes mellitus with foot ulcer (CODE) (CMS/HCC); Non-pressure chronic ulcer of other part of unspecified foot with unspecified severity (CMS/HCC); 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); Partial nontraumatic amputation of foot, left (CMS/HCC); Atherosclerosis of [place] coronary artery of [place] heart without angina pectoris (CMS/HCC); History of myocardial infarction (CMS/HCC); Mixed hyperlipidemia (CMS/HCC); Adverse reaction to statin medication; Primary open angle glaucoma of both eyes, unspecified glaucoma stage (CMS/HCC) Start: 07-25-2024 End: 07-25-2024 ambulatory JORDAN DUNCAN Not Available Start: 07-16-2024 End: 07-16-2024 ambulatory [facility] Start: 07-05-2024 End: 07-05-2024 ambulatory WILLI SANCHEZ [facility] Start: 07-05-2024 End: 07-05-2024 Subsequent hospital [...] Start: 05-21-2024 End: 05-21-2024 ambulatory Topher SAAVEDRA Facility:[facility] Start: 05-21-2024 End: 05-21-2024 Patient encounter procedure Topher SAAVEDRA [facility] Start: 05-15-2024 End: 05-15-2024 ambulatory [...] ty:[facility]E Siegel Start: 05-02-2024 End: 05-02-2024 ambulatory [facility] Start: 04-23-2024 End: 04-23-2024 Bamboo flowsheet Brody Ibrahim DPM Work Phone: [facility] Start: 04-23-2024 End: 04-23-2024 Bamboo flowsheet Brody Ibrahim DPM Work Phone: [facility] Start: 04-23-2024 End: 04-23-2024 ambulatory BRODY IBRAHIM Not Available Start: 04-23-2024 End: 04-23-2024 Patient encounter procedure Topher Ordoñez SAAVEDRA [facility] Comment on above: Diabetic polyneuropa thy associated with type 2 diabetes mellitus (CMS/HCC) (Primary Dx); Nontraumatic amputation of foot, left (CMS/HCC); Nontraumatic amputation of foot, right (CMS/HCC) Start: 04-09-2024 End: 04-09-2024 Telephone encounter Brody Ibrahim DPM Work Phone: [facility] Comment on above: Advice Only (orthoti cs) Start: 03-29-2024 End: 03-29-2024 Bamboo flowsheet Brody Ibrahim DPM Work Phone: [facility] Start: 03-29-2024 End: 03-29-2024 Bamboo flowsheet Brody Ibrahim DPM Work Phone: [facility] Start: 03-29-2024 End: 03-29-2024 Postop follow up visit related to original px Brody Ibrahim DPM Work Phone: [facility] Comment on above: Diabetic polyneuropa [...] Start: 03-27-2024 End: 03-27-2024 ambulatory Topher SAAVEDRA Facility:[facility] Start: 03-27-2024 End: 03-27-2024 Patient encounter procedure Topher SAAVEDRA [facility] Start: 03-13-2024 End: 03-13-2024 Bamboo flowsheet Brody Ibrahim DPM Work Phone: [facility] Start: 03-13-2024 End: 03-13-2024 Bamboo flowsheet Brody Ibrahim DPM Work Phone: [facility] Start: 03-13-2024 End: 03-13-2024 Patient encounter procedure Brody Ibrahim DPM Work Phone: [facility] Comment on above: Acquired keratoderma (Primary Dx); Diabetic polyneuropathy associated with type 2 diabetes mellitus (CMS/HCC); Nontraumatic amputation of foot, left (CMS/HCC); Nontraumatic amputation of foot, right (CMS/HCC) Start: 03-13-2024 End: 03-13-2024 ambulatory BRODY A RUSHER Not Available Start: 03-01-2024 End: 03-01-2024 ambulatory [facility] Start: 02-27-2024 End: 02-27-2024 ambulatory Topher SAAVEDRA Facility:[facility] Start: 02-27-2024 End: 02-27-2024 Patient encounter procedure Topher SAAVEDRA [facility] Start: 01-31-2024 End: 01-31-2024 Patient encounter procedure Fernanda Solomon [facility] Start: 01-10-2024 End: 01-10-2024 ambulatory BRODY IBRAHIM Not Available Start: 12-06-2023 End: 12-06-2023 ambulatory BRODY A ALEXANDRIA Not Available Start: 12-05-2023 End: 12-05-2023 Patient encounter procedure Topher SAAVEDRA [facility] Start: 11-09-2023 End: 11-09-2023 ambulatory [facility] Start: 11-07-2023 End: 11-07-2023 Patient encounter procedure Topher SAAVEDRA [facility] Start: 10-27-2023 End: 10-27-2023 ambulatory JORDAN DUNCAN Not Available Start: 10-12-2023 End: 10-12-2023 ambulatory JORDAN DUNCAN Not Available Start: 10-07-2023 End: 10-07-2023 Patient encounter procedure Topher SAAVEDRA [facility] Start: 09-27-2023 End: 09-27-2023 ambulatory BRODY IBRAHIM Not Available Start: 09-09-2023 End: 09-09-2023 Patient encounter procedure Topher SAAVEDRA [facility] Start: 08-15-2023 End: 08-15-2023 Patient encounter procedure Topher SAAVEDRA [facility] Start: 07-19-2023 Bamboo flowsheet Brody Tyler er DPM Work Phone: [facility] Start: 07-19-2023 Bamboo flowsheet Brody Tyler er DPM Work Phone: [facility] Start: 07-19-2023 End: 07-19-2023 Patient [...] encounter procedure Topher SAAVEDRA [facility] Start: 06-20-2023 End: 06-20-2023 Patient encounter procedure Topher SAAVEDRA [facility] Start: 05-09-2023 End: 05-09-2023 Patient encounter procedure Topher SAAVEDRA [facility] Start: 04-04-2023 End: 04-04-2023 Patient encounter procedure Topher SAAVEDRA [facility] Start: 02-08-2023 End: 02-08-2023 Patient encounter procedure JORDAN DUNCAN [facility] Start: 01-03-2023 End: 01-03-2023 Patient encounter procedure Topher SAAVEDRA [facility] Start: 12-03-2022 End: 12-03-2022 Patient encounter procedure Topher SAAVEDRA [facility] Start: 11-05-2022 End: 11-05-2022 Patient encounter procedure Topher SAAVEDRA [facility] Start: 11-03-2022 End: 11-03-2022 [facility] Comment on above: Polycythemia (Primar y Dx) Start: 10-25-2022 End: 10-26-2022 ambulatory ARNOLD PEOPLES Facility:[facility] Start: 10-05-2022 End: 10-06-[address] JORDAN DUNCAN . Facility:[facility] Start: 10-05-2022 End: 10-05-2022 Patient encounter procedure Topher SAAVEDRA [facility] Start: 09-30-2022 End: 09-30-[address] TOPHER SAAVEDRA . Facility:[facility] Start: 09-27-2022 End: 09-28-2022 ambulatory ARNOLD PEOPLES Facility:[facility] Start: 09-20-2022 End: 09-21-2022 ambulatory ENEDINA Schultz [facility] Facility:[facility]1 Start: 09-20-2022 Encounter for preprocedural cardiovascular examination DR TOPHER SAAVEDRA . [facility] Start: 09-20-2022 Encounter for preprocedural laboratory examination DR TOPHER SAAVEDRA . [facility] Start: 09-20-2022 Encounter for preprocedural respiratory examination DR TOPHER SAAVEDRA . [facility] Start: 09-15-2022 End: 09-16-[address] TOPHER SAAVEDRA . Facility:[facility]1 Start: 09-15-2022 End: 09-16-2022 Encounter for preprocedural laboratory examination DR TOPHER SAAVEDRA . Facility:[facility]1 Start: 09-06-2022 End: 09-06-2022 Patient encounter procedure Topher SAAVEDRA [facility] Start: 06-18-2022 End: 06-18-2022 Patient encounter procedure Topher SAAVEDRA [facility] Start: 05-20-2022 End: 05-21-2022 ambulatory ENEDINA Schultz [facility] Facility:[facility]1 Start: 05-17-2022 End: 05-17-2022 Patient encounter procedure Topher SAAVEDRA [facility] Start: 04-21-2022 End: 04-22-2022 ambulatory ENEDINA Schultz [facility] Facility:[facility] Start: 04-21-2022 End: 04-21-2022 Patient encounter procedure Mandy Schaefer [facility] Start: 04-09-2022 End: 04-10-2022 ambulatory [facility] Facility:[facility]1 Start: 03-31-2022 End: 03-31-2022 Patient encounter procedure Mandy Chavarriajose [facility] Start: 03-22-2022 End: 03-23-2022 ambulatory [facility] Facility:[facility]1 Start: 03-03-2022 End: 03-03-2022 Patient encounter procedure [facility]efer [facility] Start: 02-01-2022 End: 02-01-2022 Patient encounter procedure Topher SAAVEDRA [facility] [place] [employer] Start: 01-28-2022 End: 01-28-2022 [facility] Comment on above: Polycythemia (Primar y Dx) Start: 01-18-2022 End: 01-18-[address] JORDAN DUNCAN . Facility:[facility] Start: 01-06-2022 End: 01-07-2022 ambulatory [facility] Facility:[facility]1 Start: 12-21-2021 End: 12-21-2021 Patient encounter procedure Topher SAAVEDRA [facility] Start: 11-23-2021 End: 11-23-2021 Patient encounter procedure Topher SAAVEDRA [facility] Start: 10-26-2021 End: 10-26-2021 Patient encounter procedure Topher SAAVEDRA [facility] [place] Start: 09-28-2021 End: 09-28-2021 Patient encounter procedure Topher SAAVEDRA [facility] Start: 08-31-2021 End: 08-31-2021 Patient encounter procedure Topher SAAVEDRA [facility] Start: 10-22-2020 End: 10-22-2020 Subsequent hospital visit by physician [facility] Med Onc Room 9 Schedule [facility] Comment on above: Polycythemia (Primar y Dx) Start: 07-27-2019 End: 07-27-2019 Subsequent hospital visit by physician [facility] Med Onc Room 9 [facility] Comment on above: Polycythemia (Primar y Dx) Start: 03-13-2019 End: 03-13-2019 Subsequent hospital visit by physician [facility] Med Onc Room 9 Schedule [facility] Comment on above: Polycythemia (Primar y Dx) Start: 01-12-2019 End: 01-12-2019 Subsequent hospital visit by physician [facility] Med Onc Room 9 Schedule [facility] Start: 02-16-2018 End: 02-17-2018 Patient encounter DEFAULT PHYSICIAN Facility:[email or web address] Procedures Date Procedure Procedure Detail Performing Clinician [...] External Data Provider Start: 12-26-2024 [facility] LIVER PANEL Generi c External Data Provider Start: 09-18-2024 Creatinine other source Jordan Duncan MD Work Phone: Start: 05-22-2024 ALL CBC WITH AUTO DIFF Generic External Data Provider Start: 05-08-2024 ALL LIPID PROFILE (FASTING) Generic External Data Provider Start: 09-30-2022 Circumcision Topher JENSEN Start: 12-17-2020 Colonoscopy Brody Hector her DPM Work Phone: Start: 05-23-2019 foot surgery Topher JENSEN Start: 05-13-2014 History of placement of stent for coronary artery disease S/P JORY - LCX & RCA ([id number]. kabour) [facility] Schedule BACK SURGERY Topher SAAVEDRA Placement of stent Topher [facility] SURGERY Agustin SAAVEDRA RIGHT VEIN REMOVED F ROM LEG Topher SAAVEDRA Plan of Treatment Date Care Activity Detail Author Start: 12-17-2030 Screening for malignant neoplasm of colon [facility] Start: 09-29-2025 Glaucoma screening Diabetes: Retinopathy Screening [facility] Start: 09-18-2025 Urine screening for protein Diabetes: Urine Protein Screening [facility] Start: 07-25-2025 Medicare Annual Wellness (AWV) Medicare Annual Wellness (AWV) [facility] Start: 02-21-2025 GFR test (Diabetes, CKD 3-4, OR last GFR 15-59) GFR test (Diabetes, CKD 3-4, OR last GFR 15-59) [facility] Start: 02-04-2025 Influenza vaccination Influenza Vaccine (#1) [facility] Start: 12-12-2024 Hemoglobin A1c measurement Diabetes: Hemoglobin A1C [facility] Start: 10-26-2024 End: 10-26-2024 Patient encounter procedure 10/26/2024 1:00 PM EDT Appointment [facility] [address] [place], [place] [id number] phlebotomy [facility] Comment on above: phlebotomy Start: 10-17-2024 End: 10-17-2024 Patient encounter procedure 10/17/2024 1:00 PM EDT Office Visit [facility] Part of [address] [address] Newtno Stevenson MD [address] [place] [address] F/U polycythemia, anal cancer [facility] Part of [facility] Comment on above: F/U polycythemia, anal cancer Start: 10-04-2024 Urine screening for protein Diabetes: Urine Protein Screening [facility] Start: 09-18-2024 End: 09-18-2024 Patient encounter procedure [facility] Comment on above: Essential hypertension ([facility]); Microalbuminuria; Mixed hyperlipidemia ([facility]); Type 2 diabetes mellitus with diabetic microalbuminuria, without long-term current use of insulin ([facility]/HCC); Type 2 diabetes mellitus with diabetic polyneuropathy, without long-term current use of insulin ([facility]/HCC) Start: 08-25-2024 End: 03-27-2025 Comprehensive metabolic 2000 panel - Serum or Plasma Comprehensive metabolic panel Lab Routine Type 2 diabetes mellitus with diabetic polyneuropathy, without long-term current use of insulin ([facility]) Essential hypertension ([facility]/HCC) Expected: 08/25/2024, Expires: 03/27/2025 [facility] Work Phone: Comment on above: Expected: 08/25/2024, Expires: Start: 08-25-2024 End: 03-27-2025 Hemoglobin A1c/Hemoglobin.total in Blood Hemoglobin A1c Lab Routine Type 2 diabetes mellitus with diabetic polyneuropathy, without long-term current use of insulin ([facility]) Expected: 08/25/2024, Expires: 03/27/2025 [facility] Comment on above: Expected: 08/25/2024, Expires: Start: 08-25-2024 End: 03-27-2025 Lipid 1996 panel - Serum or Plasma Lipid panel Lab Routine Mixed hyperlipidemia ([facility]/HCC) Expected: 08/25/2024, Expires: 03/27/2025 [facility] Comment on above: Expected: 08/25/2024, Expires: Start: 07-25-2024 End: 07-25-2024 Patient encounter procedure 07/25/2024 11:00 AM EST Office Visit [facility] [address] [place] [address] Jordan Duncan MD [address] [place] [address] (Fax) Encounter for Medicare annual wellness exam; Advance directive in chart; Encounter for screening for other disorder; Screening for alcohol problem; Morbid (severe) obesity due to excess calories ([facility]); Body mass index (BMI) 40.0-44.9, adult ([facility]) [facility] Comment on above: Encounter for Medicare annual wellness e xam; Advance directive in chart; Encounter for screening for other disorder; Screening for alcohol problem; Morbid (severe) obesity due to excess calories ([facility]); Body mass index (BMI) 40.0-44.9, adult ([facility]) Start: 06-21-2024 Hemoglobin A1c measurement Diabetes: Hemoglobin A1C [facility] Start: 05-17-2024 Medicare Annual Wellness (AWV) Medicare Annual Wellness (AWV) [facility] Start: 05-15-2024 End: 05-15-2024 Patient encounter procedure 05/15/2024 10:15 AM EST Office Visit [facility] [address] [place] [address] Brody Ibrahim DPM [address] [place] [address] [facility] Start: 04-23-2024 End: 04-23-2024 Patient encounter procedure 04/23/2024 11:00 AM EST [facility] [address] [facility] [place] [address] Brody Ibrahim DPM [address] [facility] [place] [address] [facility] Start: 04-09-2024 End: 04-09-2024 Patient encounter procedure 04/09/2024 9:30 AM EST Office Visit [facility] [address] [facility] [address] [place] [address] Jordan Duncan MD [address] [facility] [place] [address] (Fax) [facility] Start: 03-29-2024 End: 03-29-2024 Patient encounter procedure 03/29/2024 1:00 PM EDT Office Visit [facility] [address] [place] [phone] Brody Ibrahim, KATLIN [address] [place], [place] [phone] Arrived [facility] Comment on above: Arrived Start: 03-27-2024 End: 03-27-2024 Patient encounter procedure 03/27/2024 2:00 PM EDT Office Visit [facility] [address] [address] Jordan Duncan MD [address] [place] [address] Type 2 diabetes mellitus with diabetic polyneuropathy, [...] procedure 03/13/2024 9:45 AM EDT Office Visit [facility] [address] [place] [phone] Brody Ibrahim DPM [address] [place] [address] Arrived [facility] Comment on above: Arrived Start: 02-05-2024 COVID-19 Vaccine (7 - 2023-24 season) COVID-19 Vaccine ( season) [facility] Start: 02-05-2024 Influenza vaccination Influenza Vaccine (#1) [facility] Start: 01-05-2024 Hemoglobin A1c measurement Diabetes: Hemoglobin A1C [facility] Start: 11-26-2023 Glaucoma screening Diabetes: Retinopathy Screening [facility] Start: 10-29-2023 GFR test (Diabetes, CKD 3-4, OR last GFR 15-59) GFR test (Diabetes, CKD 3-4, OR last GFR 15-59) [facility] Start: 10-26-2023 End: 10-26-2023 Patient encounter procedure 10/26/2023 Office Visit Oncology Newton Stevenson MD [address] [place] [address] [facility] Part of [facility] Start: 10-12-2023 End: 10-12-2023 Patient encounter procedure 10/12/2023 9:30 AM EDT Office Visit [facility] [address] [place] [address] Jordan Duncan MD [address] [place] [address] [facility] Start: 09-27-2023 End: 09-27-2023 Patient encounter procedure 09/27/2023 11:00 AM EDT Procedure Visit [facility] [address] [place] [phone] Brody Ibrahim DPM [address] [place] [address] [facility] Start: 07-14-2023 Hemoglobin A1c measurement Diabetes: Hemoglobin A1C [facility] Start: 05-02-2023 Annual Wellness Visit (Medicare) Annual Wellness Visit (Medicare) [facility] Start: 10-20-2022 End: 10-20-2022 Patient encounter procedure 10/20/2022 Office Visit Oncology Newton Stevenson MD [address] [place] [address] [facility] Part [facility] Start: 09-24-2022 Hemoglobin A1c measurement A1C test (Diabetic or Prediabetic) [email or web address] Start: 02-04-2022 Influenza vaccination Flu vaccine (#1) [facility] Start: 11-11-2021 Urine screening for protein [facility] Start: 10-21-2021 End: 10-21-2021 Patient encounter procedure 10/21/2021 Office Visit Oncology Newton Stevenson MD [address] [facility] [place] [address] [facility] Part [facility] Start: 10-16-2021 COVID-19 Vaccine (4 - Booster for Pfizer series) COVID-19 Vaccine (4 - Booster for Pfizer series) [facility] Start: 10-14-2021 Lipid panel Lipids [facility] Start: 10-24-2019 End: 10-24-2019 Office Visit [facility] Start: 07-31-2019 End: 07-31-2019 Appointment 07/31/2019 Appointment Infusion Therapy [facility] Start: 04-30-2019 End: 04-30-2019 Appointment 04/30/2019 Appointment Infusion Therapy [facility] Start: 02-04-2019 Influenza vaccination Flu vaccine (#1) [facility] [place] [place] Start: 11-26-2018 Annual Wellness Visit (AWV) Annual Wellness Visit (AWV) [email or web address] Start: 08-17-2017 Creatinine measurement Creatinine monitoring [facility] Work Phone: Start: 08-17-2017 Creatinine monitoring Creatinine monitoring [place], [place] Start: 08-17-2017 Potassium monitoring Potassium monitoring [place], [place] Start: 08-04-2017 A1C test (Diabetic or Prediabetic) A1C test (Diabetic or Prediabetic) [facility] [place] [place] Start: 08-04-2017 Hemoglobin A1c measurement A1C test (Diabetic or Prediabetic) [facility] Start: 02-10-2017 Abdominal aortic aneurysm screening AAA screen [facility] Start: 02-10-2017 Pneumococcal 65+ years Vaccine (1 of 2 - PCV13) Pneumococcal 65+ years Vaccine (1 of 2 - PCV13) [place] Start: 01-29-2017 Shingles Vaccine (2 of 3) Shingles Vaccine (2 of 3) [facility] Start: 02-10-2015 Annual Wellness Visit (AWV) Annual Wellness Visit (AWV) [place] Start: 2012 Respiratory Syncytial Virus (RSV) or age 60 yrs+ (1 - Risk 60-74 years 1-dose series) Respiratory Syncytial Virus (RSV) or age 60 yrs+ (1 - Risk 60-74 years 1-dose series) [facility] Start: 02-10-2002 Colon cancer screen colonoscopy Colon cancer screen colonoscopy [place], [place] Start: 02-10-2002 Screening for malignant neoplasm of colon Colon cancer screen colonoscopy [facility] Work Phone: Start: 02-10-2002 Shingles Vaccine (1 of 2) Shingles Vaccine (1 of 2) [place], [place] Start: 02-10-1997 Screening for malignant neoplasm of colon [facility] Start: 02-10-1971 DTaP/Tdap/Td vaccine (1 - Tdap) DTaP/Tdap/Td vaccine (1 - Tdap) [facility] Start: 02-10-1971 Hepatitis B vaccine (1 of 3 - Risk 3-dose series) Hepatitis B vaccine (1 of 3 - Risk 3-dose series) [place] Start: 02-10-1970 Diabetic microalbuminuria test Diabetic microalbuminuria test [place] Start: 02-10-1970 Diabetic retinal exam Diabetic retinal exam [facility] Start: 02-10-1970 Glaucoma screening Diabetic retinal exam [facility] Start: 02-10-1970 Hepatitis C screening Hepatitis C screen [facility] Start: 02-10-1970 Urine screening for protein Diabetic Alb to Cr ratio (uACR) test [facility] Start: 1964 Depression Screen Depression Screen [facility] Start: 02-10-1963 DTaP/Tdap/Td vaccine (1 - Tdap) DTaP/Tdap/Td vaccine (1 - Tdap) [place] Start: 02-10-1962 [object Object] Diabetic foot exam [place] Start: 02-10-1962 Diabetic foot examination Diabetic foot exam [facility] Start: 02-10-1962 Diabetic retinal exam Diabetic retinal exam [place], [place] Start: 02-10-1962 Lipid panel [facility] Start: 02-10-1962 Lipid screen Lipid screen [place], [place] Start: 1952 Annual Wellness Visit (AWV) Annual Wellness Visit (AWV) [facility] Start: 1952 Hepatitis C screen Hepatitis C screen [place] Start: 1950 Hepatitis C screening Hepatitis C screen [facility] Work Phone: Start: 1950 Screening for malignant neoplasm of colon [facility] End: 07-05-2024 Phlebotomy therapeutic Phlebotomy therapeutic Procedures Routine One Time for 1 Occurrences starting 07/05/2024 until 07/05/2024 [facility] Work Phone: Comment on above: One Time for 1 Occurrences starting 06/08 until 07/05/2024 Immunizations Immunization Date Immunization Notes Care Provider Shania durham 01-31-2025 RSV vaccine preF3, recombinant Topher SAAVEDRA [facility] 01-31-2025 tetanus toxoid, redu edin diphtheria toxoid, and acellular pertussis vaccine, adsorbed Topher SAAVEDRA [facility] 01-31-2025 zoster vaccine recombinant Gigwalk [facility] 03-28-2024 influenza, seasonal, injectable Brody Ibrahim DPM Work Phone: [facility] 03-28-2024 Seasonal trivalent influenza vaccine, adjuvanted, preservative free Brody Ibrahim DPM Work Phone: [facility] 03-28-2024 influenza virus vacc ine, unspecified formulation Generic Provider [facility] 02-28-2023 influenza virus vacc ine, unspecified formulation Topher SAAVEDRA [facility] 02-28-2023 Influenza, Seasonal, Quadrivalent, Adjuvanted Brody Ibrahim DPM Work Phone: [facility] 04-16-2022 influenza virus vacc ine, unspecified formulation Topher SAAVEDRA [facility] 04-16-2022 Influenza, Seasonal, Quadrivalent, Adjuvanted Brody Ibrahim DPM Work Phone: [facility] 03-23-2022 Moderna Bivalent Simmons ster Vaccination Brody Ibrahim DPM Work Phone: [facility] 03-23-2022 Moderna SARS-CoV-2 50mcg/0.5mL Booster Brody Ibrahim DPM Work Phone: [facility] 03-23-[address] 12 Years And Older Brody Ibrahim DPM Work Phone: [facility] 03-23-2022 SARS-CoV-2 (COVID-19 ) [id number] Topher SAAVEDRA [facility] 06-18-2021 SARS-CoV-2 (COVID-19 ) mRNA BNT-162b2 vax Topher SAAVEDRA [facility] 05-06-2021 influenza virus vacc ine, unspecified formulation Topher SAAVEDRA [facility] 05-06-2021 Influenza, Seasonal, Quadrivalent, Adjuvanted Brody Ibrahim DPM Work Phone: [facility] 05-06-2021 SARS-CoV-2 (COVID-19 ) Ad26 vaccine, recombinant Topher SAAVEDRA [facility] 08-28-2020 SARS-CoV-2 (COVID-19 ) mRNA BNT-162k1 vax Topher SAAVEDRA [facility] 08-28-2020 SARS-CoV-2, Unspecified Garry Ibrahim DPM Work Phone: [facility] 08-27-2020 Pfizer Purple Cap SARS-CoV-2 Vaccination Brody Ibrahim DPM Work Phone: [facility] 08-08-2020 SARS-CoV-2 (COVID-19 ) mRNA BNT-162s4 vax Topher SAAVEDRA [facility] Comment on above: Result Comment: 2022: [id number] 08-08-2020 SARS-CoV-2, Unspecified Garry Ibrahim DPM Work Phone: [facility] 08-07-2020 Pfizer Purple Cap SARS-CoV-2 Vaccination Brody Ibrahim DPM Work Phone: [facility] 08-04-2020 SARS-CoV-2 (COVID-19 ) Ad26 vaccine, recombinant Topher SAAVEDRA [facility] 03-22-2020 influenza virus vacc ine, unspecified formulation Topher SAAVEDRA [facility] 03-22-2020 Influenza, Seasonal, Quadrivalent, Adjuvanted Brody Ibrahim DPM Work Phone: [facility] 03-06-2019 pneumococcal conjuga te vaccine, 13 valent Topher SAAVEDRA [facility] 03-05-2019 influenza virus vacc ine, unspecified formulation Topher SAAVEDRA [facility] 03-05-2019 influenza, high dose seasonal, preservative-free Brody Rusher DPM Work Phone: [facility] 03-05-2019 pneumococcal polysaccharide vaccine, 23 valent Topher SAAVEDRA [facility] 03-04-2019 Influenza, High-dose Seasonal, Quadrivalent, Preservative Free Brody Rusher DPM Work Phone: [facility] 03-04-2019 pneumococcal polysaccharide vaccine, 23 valent Brody Rusher DPM Work Phone: [facility] 03-03-2018 influenza virus vacc ine, unspecified formulation Topher SAAVEDRA [facility] 03-03-2018 influenza, high dose seasonal, preservative-free Brody Rusher DPM Work Phone: [facility] 03-03-2018 pneumococcal conjuga te vaccine, 13 valent Topher SAAVEDRA [facility] 03-03-2018 pneumococcal polysaccharide vaccine, 23 valent Brody Rusher DPM Work Phone: [facility] 03-02-2018 pneumococcal conjuga te vaccine, 13 valent Brody Rusher DPM Work Phone: [facility] 04-06-2017 influenza virus vacc ine, unspecified formulation Topher SAAVEDRA [facility] 04-06-2017 influenza, injectabl e, quadrivalent, preservative free Brody Rusher DPM Work Phone: [facility] 12-04-2016 pneumococcal polysaccharide vaccine, 23 valent Topher SAAVEDRA [facility] 12-04-2016 zoster vaccine, live Topher SAAVEDRA [facility] 03-06-2016 Influenza Vaccine, unspecified formulation Mthz Schedule [facility] 03-06-2016 influenza virus vacc ine, H5N1, A/[place]/120/2003 (national stockpile) Brody Ibrahim DPM Work Phone: [facility] 03-06-2016 influenza virus vacc ine, unspecified formulation Brody Ibrahim DPM Work Phone: [facility] 03-06-2016 Influenza, High-dose Seasonal, Quadrivalent, Preservative Free Brody Ibrahim DPM Work Phone: [facility] 03-06-2016 influenza, unspecifi ed formulation Topher SAAVEDRA [facility] 01-23-2016 influenza virus vacc ine, unspecified formulation Topher SAAVEDRA [facility] 01-23-2016 influenza, injectabl e, quadrivalent, preservative free Brody Ibrahim DPM Work Phone: [facility] 06-06-2015 pneumococcal polysaccharide vaccine, 23 valent Topher SAAVEDRA [facility] 03-23-2014 influenza virus vacc ine, unspecified formulation Topher SAAVEDRA [facility] 03-23-2014 influenza, seasonal, injectable Brody Ibrahim DPM Work Phone: [facility] 04-06-2013 influenza virus vacc ine, unspecified formulation Topher SAAVEDRA [facility] 04-06-2013 influenza, seasonal, injectable Brody Ibrahim DPM Work Phone: [facility] 04-06-2013 zoster vaccine, live Topher SAAVEDRA [facility] 04-05-2013 zoster vaccine, live Brody Ibrahim DPM Work Phone: [facility] 04-21-2009 novel influenza-H1N1 -09, preservative-free, injectable Brody Alexandria DAALL Work Phone: [facility] Healthcare Payers Date Payer Category Payer Self-pay 2022 Private Health Insurance [id number] 2022 Unknown 2017 Medicare [id number] 2017 Medicare xxxxxxxxxxx [id number] 1959 Medicare [id number] 1959 Private Health Insurance [id number] 1952 Unknown [id number] 2.16.84 0.1.527763.3.579.2.593 1952 Unknown [id number] 2.16.84 0.1.877970.3.579.2.593 1952 Unknown [id number] 2.16.84 0.1.281897.3.579.2.593 1952 Unknown [id number] 2.16.84 0.1.560473.3.579.2.593 1952 Unknown [id number] 2.16.84 0.1.543572.3.579.2.593 1952 Unknown [id number] 2.16.84 0.1.180205.3.579.2.593 1952 Unknown [id number] 2.16.84 0.1.437755.3.579.2.593 1952 Unknown [id number] 2.16.84 0.1.419184.3.579.2.593 1952 Unknown [id number] 2.16.84 0.1.548578.3.579.2.593 1952 Unknown [id number] 2.16.84 0.1.033513.3.579.2.593 1952 Unknown [id number] 2.16.84 0.1.663219.3.579.2.593 1952 Unknown [id number] 2.16.84 0.1.590699.3.579.2.593 1952 Unknown [id number] 2.16.8 40.1.173855.3.579.2.173 1952 Unknown [id number] 2.16.8 40.1.432623.3.579.2.173 1952 Unknown [id number] 2.16.8 40.1.785082.3.579.2.173 1952 Unknown [id number] 2.16.84 0.1.845790.3.579.2.1259 1952 Unknown [id number] 2.16.84 0.1.232099.3.579.2.1259 1952 Unknown [id number] 2.16.84 0.1.022312.3.579.2.1259 1952 Unknown [id number] 2.16.84 0.1.075294.3.579.2.1259 1952 Unknown [id number] 2.16.84 0.1.731718.3.579.2.1259 1952 Unknown [id number] 2.16.84 0.1.034805.3.579.2.1259 1952 Unknown [id number] 2.16.84 0.1.639297.3.579.2.1259 1952 Unknown [id number] 2.16.84 0.1.036129.3.579.2.1259 1952 Unknown [id number] 2.16.84 0.1.613149.3.579.2.1259 1952 Unknown [id number] 2.16.84 0.1.654645.3.579.2.1259 1952 Unknown [id number] 2.16.84 0.1.164805.3.579.2.1259 1952 Unknown [id number] 2.16.84 0.1.184898.3.579.2.1259 1952 Unknown [id number] 2.16.8 40.1.999315.3.579.2.727 1952 Unknown [id number] 2.16.8 40.1.830318.3.579.2.727 1952 Unknown [id number] 2.16.8 40.1.284357.3.579.2.727 1952 Unknown [id number] 2.16.8 40.1.397112.3.579.2.727 1952 Unknown [id number] 2.16.8 40.1.102361.3.579.2.727 1952 Unknown [id number] 2.16.8 40.1.016004.3.579.2.727 1952 Unknown [id number] 2.16.8 40.1.363327.3.579.2.727 Medicare [id number] Unknown [id number] 2.16.8 40.1.792670.3.579.2.531 Social History Date Type Detail Facility Start: 10-18-2018 End: 02-08-2025 Tobacco smoking status NHIS Former smoker [place] Start: 08-31-1979 End: 06-06-2012 History of tobacco use Current smoker [place] Start: 10-18-2018 End: 09-18-2024 Cigarettes smoked current (pack per day) - Reported [facility] Start: 10-18-2018 End: 09-18-2024 [facility] intake [facility] Start: 01-23-2014 End: 11-02-2023 Tobacco Comment [facility] 1999 [facility] Start: 1950 Sex Assigned At [facility] Start: 10-18-2018 End: 11-02-2023 Alcohol intake Current non-drinker of alcohol (finding) [facility] Start: 10-22-2020 End: 12-06-2023 Tobacco use and exposure Never used [facility] Start: 01-18-2022 End: 01-28-2022 Exposure to SARS-CoV-2 (event) Not sure [facility] Start: 08-31-1979 End: 06-06-2012 History of tobacco use Cigarette Smoker [facility] Work Phone: Start: 05-17-2023 End: 01-01-2025 Alcohol intake Current drinker of alcohol (finding) [facility] How often to you hav e a drink containing alcohol? 2-4 times a month [facility] How many standard dr inks containing alcohol do you have on a [...] Identifies as male gender (finding) [facility] Tobacco smoking stat us NHIS Unknown if ever smoked [facility] Work Phone: Start: 12-06-2018 Sex Male (finding) [facility] Start: 1950 Sex Assigned At Male F [facility] Tobacco smoking status Never [facility] Sexual Orientation [facility] Functional Status Date Assessment Result Facility 09-18-2024 Patient Health Quest ionnaire 2 item (PHQ-2) [Reported] [facility] 05-21-2024 Functional Status N/A [facility] 12-05-2023 Functional Status N/A [facility] 06-20-2023 Functional Status N/A [facility] 11-05-2022 Functional Status N/A [facility] 06-18-2022 Functional Status N/A [facility] 05-17-2022 Functional Status N/A [facility] 02-01-2022 Functional Status N/A [facility] Clinical Notes 10-22-2020 to 02-08-2025 Telephone Encounter - Laisha Castaneda - 12/03/2024 8:18 AM EDTTelephone Encounter - Laisha Castaneda - 12/03/2024 8:18 AM EDTTelephone Encounter - Jordan Duncan MD - 10/18/2024 12:45 PM EDT Note Date & Type Note Facility 02-08-2025 Hospital Discharge instructions Patient Education 02/08/2025 08:40:53 Benign Prostatic Hyperplasia Benign Prostatic Hyperplasia Benign [...] urethra. Follow these instructions at home: Take qyri-qwf-udppvqd and prescription medicines only as told by [...] provider. Document Revised: 12/09/2021 Document Reviewed: 12/09/2021 [place] DEPT. Patient Education 2023 Dentalink. Follow Up Care 01/14/2025 08:10:35 With:KERI NOLASCO, Topher Ordoñez, URL Address: [address] [place] [address] [place] [address] When: Unknown Comments:6 mos [facility] Christal 02-08-2025 Note Patient Education Urology Benign Prostatic Hyperplasia Benign [...] or symptoms? Symptoms of this condition include: ??? Getting up often during the night to urinate. ??? Needing to urinate frequently during the day. ??? Difficulty starting urine flow. ??? Decrease in size and strength of your urine stream. ??? Leaking (dribbling) after urinating. ??? Inability to pass urine. This needs immediate treatment. ??? Inability to completely empty your bladder. ??? Pain when you pass urine. This is more common if there is also an infection. ??? Urinary tract infection (UTI). How is this diagnosed? This condition is diagnosed based on your medical history, a physical exam, and your symptoms. Tests will also be done, such as: ??? A post-void bladder scan. This measures any amount of urine that may remain in your bladder after you finish urinating. ??? A digital rectal exam. In a rectal exam, your health care provider checks your prostate by putting a lubricated, gloved finger into your rectum to feel the back of your prostate gland. This exam detects the size of your gland and any abnormal lumps or growths. ??? An exam of your urine (urinalysis). ??? A prostate specific antigen (PSA) screening. This is a blood test used to screen for prostate cancer. ??? An ultrasound. This test uses sound waves [...] severity of your condition. Treatment may include: ??? Observation and yearly exams. This may be the only treatment needed if your condition and symptoms are mild. ??? Medicines to relieve your symptoms, including: ? Medicines to shrink the prostate. ? Medicines to relax the muscle of the prostate. ??? Surgery in severe cases. Surgery may include: [...] the urethra. Follow these instructions at home: ??? Take zozz-yws-lwedcrj and prescription medicines only as told by your health care provider. ??? Monitor your symptoms for any changes. Contact your health care provider with any changes. ??? Avoid drinking large amounts of liquid before going to bed or out in public. ??? Avoid or reduce how much caffeine or alcohol you drink. ??? Give yourself time when you urinate. ??? Keep all follow-up visits. This is important. Contact a health care provider if: ??? You have unexplained back pain. ??? Your symptoms do not get (more content not included)... [facility] 12-21-2024 Note Patient is here for surgery [...] significant medical history of CAD status post MD with stenting procedures in the past (2006, [...] on his cyclobenzaprine (Flexeril) 10 MG to [facility] in [place] [facility] 12-03-2024 Miscellaneous Notes Bret called requesting a refill on his cyclobenzaprine (Flexeril) 10 MG to [facility] in [place] documented in this encounter [facility] 10-18-2024 Telephone encounter Note Reviewed in prescription sent. [facility] 10-18-2024 Miscellaneous Notes Reviewed in prescription sent. [...] asking for these to go to [facility] in [place]. documented in this encounter [facility] 10-18-2024 Telephone encounter Note Bret called needing [...] asking for these to go to [facility] in [place]. [facility] 09-18-2024 History of Present illness Narrative Images [...] file prior to visit. 1. Essential hypertension ([facility]) (Primary) Chronic problem, stable, to goal. In [...] measure for HEDIS. 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 Primarily managed [...] longitudinally.Primarily managed by Podiatry 13. 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 He [...] Denies any dizziness. documented in this encounter [facility] 06-18-2024 Telephone encounter Note Prescription sent [facility] 06-18-2024 Miscellaneous Notes Prescription sent Bret left a message requesting a refill on his Famotidine to [facility] in [place]. documented in this encounter [facility] 06-18-2024 Telephone encounter Note Bret left a message requesting a refill on his Famotidine to [facility] in [place]. [facility] 06-08-2024 Note Contacted patient to discuss lipids management. Reviewed mechanism of action, side effects, and administration of Repatha with patient; pt agreeable to start. Will send RX to assess costs. Of note, pt may qualify for patient assistance [employer]. Will fill out paperwork and send to Cardiology to assist in obtaining signature and income documents. Iron Bess PharmD Cardiology Outpatient Clinical Pharmacist 06/11/24 [facility] 06-08-2024 Note Application for [employer]a [employer] filled out for patient. Requires patient signature. Will notify Cardiology instructional support technician to coordinate signature by patient. Application uploaded to media. Patient will come to Cardiology clinic to sign. Iron Bess PharmD Cardiology Outpatient Clinical Pharmacist 06/14/24 [facility] 06-08-2024 Note [facility] ns[facility] - Lipids Provider: Dr. Huddleston Department: Cardiology Juan Miguel Jennings is a 74 y.o. male with PMH of CAD s/p MD and stents, HTN, HLD, [place] w/ CPAP, [...] your health care provider. General instructions Take dqbg-pbh-zgptmsz and prescription medicines only as told by [...] provider. Document Revised: 02/09/2021 Document Reviewed: 02/09/2021 [place] DEPT. Patient Education 2023 Dentalink. Follow Up Care 02/27/2024 09:12:26 With:KERI NOLASCO, Topher Ordñoez, URL Address: [facility] [address], [place] [address]- When: Unknown [facility] 05-21-2024 Evaluation + Plan note Diagnostic Tests PendingTestosterone Level Total 05/21/24CBC w/ Auto Diff 05/21/24 [facility] 05-21-2024 Note Patient Education Obstetrics and Gynecology [...] health care provider. General instructions ??? Take pebi-yub-cttvfyl and prescription medicines only as told by [...] drink, and whe (more content not included)... [facility] 05-15-2024 History of Present illness [...] Brody Ibrahim DPM documented in this encounter [facility] 05-15-2024 Instructions Brody Ibrahim DPM - 05/15/2024 10:15 AM EST As noted documented in this encounter [facility] 05-02-2024 Note Cardiovascular Medic [facility] SUBJECTIVE Chief Complaint Patient presents with Coronary Artery Disease Hypertension Juan Miguel Jennings is a 74 y.o. male here for follow-up. 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 male who presents for Shoe uptwist spinner (Juan Miguel Jennings is a 74 y.o. male who presents for Foot Callouses. PCP: Dr. Dakota YARBORUGH 03/27/24, A1C: 6.4 (10/04), BS: 132 SS: [...] 03/2017 [facility] OTHER [facility]GICAL H[facility] 4 stents Geraldo Stafford - 1997 OTHER SURGICAL HISTORY rectal cancer; surgery, chemo TX and radiation TX. OTHER SURGICAL HISTORY 09/30/2022 Dorsal Slit, Keri, Amelia TOTAL KNEE ARTHROPLASTY Right 2014 Alexsander Brennan [...] Brody Ibrahim DPM documented in this encounter [facility] 04-23-2024 Instructions Brody Ibrahim DPM - 04/23/2024 11:00 AM EST Instructions as noted documented in this encounter [facility] 04-09-2024 Telephone encounter Note Custom orthotics arrived droana Gruber [facility] 04-09-2024 Miscellaneous Notes Custom orthotics arrived droana Gruber documented in this encounter [facility] 03-29-2024 History of Present illness Narrative Images [...] Measurements obtained in the weight-bearing position utilizing [employer] device. Foam impressions obtained simulated weight-bearing. Patient [...] Brody Ibrahim DPM documented in this encounter [facility] 03-29-2024 Instructions Brody Ibrahim DPM - 03/29/2024 1:00 PM EDT As noted documented in this encounter [facility] 03-27-2024 History of Present illness Narrative Images [...] with Hgb A1C. Also this is a ueec-mz-odim visit for consideration for diabetic shoes. Patient [...] without long-term current use of insulin (CMS/HCC) (Primary) Chronic problem, stable, to goal. Patient has multiple podiatric issues. The forms from Podiatry were reviewed. Patient's feet were examined. I concur with the forms from Podiatry. Diabetic shoes are medically indicated. I certify that I had a adst-dw-sfkl encounter with this patient at todays office visit. Due to this medical condition the patient requires DME. I certify that based on my findings The DME ordered is medically necessary for this patient. This has been discussed with the patient and/or their medical representative and mutually agreed upon. See the [...] stratification for cardiovascular disease. 10. Essential hypertension ([facility]) In prescribing a renewal to their current [...] - Comprehensive metabolic panel 11. Mixed hyperlipidemia ([facility]) - Lipid panel; Future - Lipid panel 12. Adverse reaction to statin medication Diagnosis for exclusion for HEDIS measures for both diabetes with statin and mixed dyslipidemia with statin. 13. Former smoker Continue nonsmoking 14. Morbid obesity ([facility]) Continue lifestyle changes as able documented in this encounter [facility] 03-13-2024 History of Present illness Narrative Images [...] History: Procedure Laterality Date BACK SURGERY 2010 Biotracy, Peguero CATARACT EXTRACTION Left 2019 Dem OTHER SURGICAL HISTORY 03/2017 lesions on bottom of both feet, [facility] OTHER SURGICAL HISTORY 4 stents Geraldo Stafford - 1997 OTHER SURGICAL HISTORY rectal cancer; surgery, chemo TX and radiation TX. OTHER SURGICAL HISTORY 09/30/2022 Dorsal Slit, Keri, [facility] TOTAL KNEE ARTHROPLASTY Right 2014 Alexsander Brennan TOTAL KNEE ARTHROPLASTY Left 05/25/[address] HENSON Family History Family History Problem Relation Name Age of Onset Heart disease Mother Diabetes Mother Heart disease Father Diabetes Brother Colon cancer Brother Objective Physical Exam General assessment. Alert and oriented. Pleasant disposition. Presents wearing current Dr. Comfort therapeutic footwear with custom orthoses. Vascular: [...] Brody Ibrahim DPM documented in this encounter [facility] 03-13-2024 Instructions Brody Ibrahim DPM - 03/13/2024 9:45 AM EDT As noted documented in this encounter [facility] 12-05-2023 Hospital Discharge instructions Patient Education 12/05/2023 [...] therapy. Follow these instructions at home: Take uchq-tpq-hfseswk and prescription medicines only as told by [...] provider. Document Revised: 01/22/2021 Document Reviewed: 01/22/2021 [employer] Patient Education 2022 Dentalink. Follow Up Care 12/05/2023 07:35:26 With:Topher SAAVEDRA MD, URL Address: [facility] [address] [place] [address] [phone] When: Unknown [facility] 11-07-2023 Hospital Discharge instructions Follow Up Care 11/07/2023 08:41:09 With:Topher SAAVEDRA MD, URL Address: [facility] [address] [place] [address] [phone] When: Unknown [facility] 07-19-2023 History of Present illness Narrative [...] May 2023; effectively healed following treatment at [facility] wound Center. Currently relates no bleeding [...] feet, high[place] OTHER SURGICAL HISTORY 4 stents RiveraGeraldo - 1997 OTHER SURGICAL HISTORY rectal cancer; surgery, chemo TX and radiation TX. OTHER SURGICAL HISTORY 09/30/2022 Dorsal Slit, Keri, Amelia TOTAL KNEE ARTHROPLASTY Right 2014 Alexsander Brennan [...] with wound right foot; effectively managed at [facility] wound care center. Care plan: conservative [...] Brody Ibrahim DPM documented in this encounter [facility] 07-19-2023 Instructions Brody Ibrahim DPM - 07/19/2023 [...] therapy. Follow these instructions at home: Take wbig-rlk-ugcgmoa and prescription medicines only as told by [...] provider. Document Revised: 01/22/2021 Document Reviewed: 01/22/2021 [place] DEPT. Patient Education 2022 Dentalink. Follow Up Care 02/08/2023 12:23:35 With:KERI NOLASCO, Topher Ordoñez, URL Address: [facility] [address] , [place] [address] [phone] When: Unknown Comments:6 mos w/ PSA and T level (pt to also get PSA now) [facility] [place] 11-05-2022 Hospital Discharge instructions Patient Education [...] urethra. Follow these instructions at home: Take ubxd-vzx-zomhues and prescription medicines only as told by [...] provider. Document Revised: 12/09/2021 Document Reviewed: 12/09/2021 [place] DEPT. Patient Education 2022 Dentalink. Follow Up Care 05/17/2022 10:46:35 With:KERI NOLASCO, Topher Ordoñez, URL Address: [facility] [address], [place] [address]- When: Unknown [facility] 11-03-2022 History of Present illness [...] for visit documented in this encounter [facility] Work Phone: 04-12-2023 Note EXAM: XR CHEST 2 V HISTORY: Pre-surgery evaluation COMPARISON: None. TECHNIQUE: PA and lateral views of the chest. FINDINGS: The cardiomediastinal silhouette is normal. No focal consolidation is identified. There is no pneumothorax. No pleural effusion is noted. The osseous structures are intact. IMPRESSION: No acute cardiopulmonary process. Electronically authenticated by: DARRIUS BOLTON Date: 2022-09-15 12:26 [facility] 06-18-2022 Hospital Discharge instructions Patient Education 06/18/2022 [...] urethra. Follow these instructions at home: Take nmhp-irt-xiziyaz and prescription medicines only as told by [...] 05/23/2006 Document Revised: 04/17/2019 Document Reviewed: 06/27/2017 Elsevier Patient Education 2019 [place] DEPT. Inc. Follow Up Care 06/14/2022 09:33:13 With:KERI NOLASCO, Topher Ordoñez, URL Address: [address] [place] [address] [place] [address]- When: Unknown [facility] 05-17-2022 Hospital Discharge instructions Patient [...] urethra. Follow these instructions at home: Take hwbf-oov-nccmkfr and prescription medicines only as told by [...] 05/23/2006 Document Revised: 04/17/2019 Document Reviewed: 06/27/2017 [place] DEPT. Patient Education 2020 Dentalink. Follow Up Care 04/21/2022 09:42:50 With:KERI NOLASCO, Topher Ordoñez, URL Address: [facility] [address] , [place] [address]- When: Unknown [facility] 03-23-2022 Note PROCEDURE: XR FOOT [...] authenticated by: BRODY PAYAN Date: 2022-03-23 06:26 [facility] 02-01-2022 Hospital Discharge instructions Patient Education 02/01/2022 [...] urethra. Follow these instructions at home: Take orpp-bjq-szsiiel and prescription medicines only as told by [...] 05/23/2006 Document Revised: 04/17/2019 Document Reviewed: 06/27/2017 [place] DEPT. Patient Education 2019 Dentalink. Follow Up Care 08/03/2021 15:20:11 With:KERI NOLASCO, Topher Ordoñez, URL Address: [address] [place] [address]- When: Unknown [facility] 10-22-2020 History of Present illness [...] ambulating without complaints [facility]: Evaluation + Plan note Future Appointments Appointment Date:09/28/2021 09:00:00 AM Scheduled Provider: Location:[facility] [place] Appointment Type:URO Nurse Visit Appointment Date:02/01/2022 09:45:00 AM Scheduled Provider:Top[facility] S[facility]EDRA MD [facility] Type:[facility]O Office Visit [facility] Evaluation + Plan note Future Appointments Appointment Date:10/26/2021 09:00:00 AM Scheduled Provider: Location:[facility] [place] Appointment Type:URO Nurse Visit Appointment Date:02/01/2022 09:45:00 AM Scheduled Provider:Topher SAAVEDRA MD [facility] Appointment Type:URO Office Visit [facility] Evaluation + Plan note Future Appointments Appointment Date:11/23/2021 09:00:00 AM Scheduled Provider: Location:[facility] [place] Appointment Type:URO Nurse Visit Appointment Date:02/01/2022 09:45:00 AM Scheduled Provider:Topher SAAVEDRA MD [facility] Appointment Type:URO Office Visit [facility] Evaluation + Plan note Future Appointments Appointment Date:12/21/2021 09:00:00 AM Scheduled Provider: Location:[facility] [place] Appointment Type:URO Nurse Visit Appointment Date:02/01/2022 09:45:00 AM Scheduled Provider:Topher SAAVEDRA MD [facility] Appointment Type:URO Office Visit [facility] Evaluation + Plan note Future Appointments Appointment Date:02/01/2022 09:45:00 AM Scheduled Provider:Topher SAAVEDRA MD Location:[facility] Appointment Type:URO Office Visit Diagnostic Tests PendingTestosterone Level Total 12/21/21 [facility] Evaluation + Plan note Future Appointments Appointment Date:03/01/2022 09:30:00 AM Scheduled Provider: Location:[facility] Appointment Type:URO Nurse Visit Diagnostic Tests PendingTestosterone Level Total 04/06/22PSA Total 03/06/22 [facility] Evaluation + Plan note Future Appointments Appointment Date:03/31/2022 08:15:00 AM Scheduled Provider: Location:[facility] Appointment Type:URO Nurse Visit [facility] Evaluation + Plan note Future Appointments Appointment Date:04/21/2022 09:15:00 AM Scheduled Provider: Location:[facility] Appointment Type:URO Nurse Visit [facility] Evaluation + Plan note Future Appointments Appointment Date:05/19/2022 08:00:00 AM Scheduled Provider:Mandy Schaefer MD Location:[facility] Appointment Type:URO Office Visit Diagnostic Tests PendingPSA Total 04/16/22Testosterone Level Total 04/16/22 [facility] Evaluation + Plan note Future Appointments Appointment Date:06/14/2022 09:00:00 AM Scheduled Provider: Location:[facility] Appointment Type:URO Nurse Visit Appointment Date:11/15/2022 08:45:00 AM Scheduled Provider:Topher SAAVEDRA MD Location:[facility] Appointment Type:URO Office Visit Diagnostic Tests PendingPSA Total 05/17/22Testosterone Level Total 05/17/22 [facility] Evaluation + Plan note Future Appointments Appointment Date:09/06/2022 09:00:00 AM Scheduled Provider: Location:[facility] Appointment Type:URO Nurse Visit Appointment Date:11/15/2022 08:45:00 AM Scheduled Provider:Topher S[facility]EDRA MD [facility] Type[facility]O Office Visit [facility] Evaluation + Plan note Future Appointments Appointment Date:10/05/2022 09:00:00 AM Scheduled Provider: [facility] App[facility] Type:URO Nurse Visit Appointment Date:10/29/2022 08:45:00 AM Scheduled Provider:Topher SAAVEDRA MD [facility] Appoint[facility] Type:URO Office Visit Appointment Date:11/05/2022 09:45:00 AM Scheduled Provider:Topher SAAVEDRA MD [facility] App[facility] Type:URO Office Visit [facility] Evaluation + Plan note Future Appointments Appointment Date:11/05/2022 09:45:00 AM Scheduled Provider:Topher SAAVEDRA MD Location:[facility] Appointment Type:URO Office Visit [facility] Evaluation + Plan note Future Appointments Appointment Date:12/03/2022 09:15:00 AM Scheduled Provider: Location:[facility] Appointment Type:URO Nurse Visit Diagnostic Tests PendingTestosterone Level Total 11/05/22PSA Total 11/05/22 [facility] Evaluation + Plan note Future Appointments Appointment Date:01/03/2023 08:15:00 AM Scheduled Provider: Location:[facility] Appointment Type:URO Nurse Visit [facility] Evaluation + Plan note Future Appointments Appointment Date:01/31/2023 08:45:00 AM Scheduled Provider: Location:[facility] Appointment Type:URO [facility] Future Appointments Appointment Date:03/07/2023 08:45:00 AM Scheduled Provider: Location:[facility] Appointment Type:URO Nurse Visit Appointment Date:04/04/2023 08:45:00 AM Scheduled Provider: Location:[facility] Appointment Type:URO Nurse Visit Appointment Date:05/02/2023 08:45:00 AM Scheduled Provider: Location:[facility] Appointment Type:URO Nurse Visit Appointment Date:05/27/2023 09:45:00 AM Scheduled Provider:Topher SAAVEDRA MD Location:[facility] Appointment Type:URO Office Visit [facility] Evaluation + Plan note Future Appointments Appointment Date:05/02/2023 08:45:00 AM Scheduled Provider: Location:[facility] Appointment Type:URO Nurse Visit Appointment Date:06/20/2023 10:30:00 AM Scheduled Provider:Topher SAAVEDRA MD [facility] App[facility] Type:URO Office Visit [facility] Evaluation + Plan note Future Appointments Appointment Date:06/20/2023 10:30:00 AM Scheduled Provider:Topher SAAVEDRA MD [facility] Appoint[facility] Type:URO Office Visit Diagnostic Tests PendingTestosterone Level Total 05/09/23 [facility] Evaluation + Plan note Future Appointments Appointment Date:07/18/2023 09:30:00 AM Scheduled Provider: Location:[facility] Appointment Type:URO Nurse Visit Diagnostic Tests PendingPSA Total 06/20/23Testosterone Level Total 06/20/23 [facility] Evaluation + Plan note Future Appointments Appointment Date:08/15/2023 10:00:00 AM Scheduled Provider: Location:[facility] Appointment Type:URO Nurse Visit [facility] Evaluation + Plan note Future Appointments Appointment Date:09/09/2023 08:30:00 AM Scheduled Provider: Location:[facility] Appointment Type:URO Nurse Visit [facility] Evaluation + Plan note Future Appointments Appointment Date:10/07/2023 08:30:00 AM Scheduled Provider: Location:[facility] Appointment Type:URO Nurse Visit [facility] Evaluation + Plan note Future Appointments Appointment Date:11/07/2023 09:00:00 AM Scheduled Provider: Location:[facility] Appointment Type:URO Nurse Visit [facility] Evaluation + Plan note Future Appointments Appointment Date:12/05/2023 10:45:00 AM Scheduled Provider:Topher SAAVEDRA MD Location:[facility] Appointment Type:URO Office Visit [facility] Evaluation + Plan note Future Appointments Appointment Date:01/02/2024 09:00:00 AM Scheduled Provider: Location:[facility] Appointment Type:URO Nurse Visit Diagnostic Tests PendingTestosterone Level Total 24Hemoglobin 12/05/23 [facility] Evaluation + Plan note Future Appointments Appointment Date:01/02/2024 09:00:00 AM Scheduled Provider: Location:[facility] Appointment Type:URO Nurse Visit [facility] Evaluation + Plan note Future Appointments Appointment Date:02/27/2024 09:00:00 AM Scheduled Provider: Location:[facility] Appointment Type:URO Nurse Visit [facility] Evaluation + Plan note Future Appointments Appointment Date:03/27/2024 09:00:00 AM Scheduled Provider: Location:[facility] Appointment Type:URO Nurse Visit Appointment Date:04/23/2024 09:30:00 AM Scheduled Provider: Location:[facility] Appointment Type:URO Nurse Visit Appointment Date:05/21/2024 10:45:00 AM Scheduled Provider:Topher SAAVEDRA MD [facility] App[facility] Type:URO Office Visit [facility] Evaluation + Plan note Future Appointments Appointment Date:04/23/2024 09:30:00 AM Scheduled Provider: Location:[facility] Appointment Type:URO Nurse Visit Appointment Date:05/21/2024 10:45:00 AM Scheduled Provider:Topher SAAVEDRA MD [facility] Appointment Type:URO Office Visit [facility] Evaluation + Plan note Future Appointments Appointment Date:05/08/2024 09:00:00 AM Scheduled Provider: [facility] Appointment Type:URO Nurse Visit Appointment Date:05/21/2024 10:45:00 AM Scheduled Provider:Topher SAAVEDRA MD Location:[facility] Appointment Type:URO Office Visit [facility] Evaluation + Plan note Future Appointments Appointment Date:08/09/2025 09:30:00 AM Scheduled Provider:Topher SAAVEDRA MD [facility] App[facility] Type:URO Office Visit [facility] Evaluation note Diagnosis Polycythemia- Primary Polycythemia vera documented in this encounter [employer] Phone: evaluation note* Diagnosis Polycythemia- Primary Polycythemia vera documented in this encounter KITTY QUIRO[facility] [employer] Phone: evaluation note* Diagnosis Dermatophytosis of nail- Primary Dystrophic nail Other specified disease of nail Diabetic polyneuropathy associated with type 2 diabetes mellitus (CMS/HCC) Nontraumatic amputation of foot, right (CMS/HCC) Nontraumatic amputation of foot, left (CMS/HCC) Acquired keratoderma documented in this encounter [facility] Healthcare[facility]* Diagnosis Acquired keratoderma- Primary Diabetic polyneuropathy associated with type 2 diabetes mellitus ([facility]) Nontraumatic amputation of foot, left ([facility]) Nontraumatic amputation of foot, right ([facility]) documented in this encounter [facility] Healthcare[facility] note* Diagnosis Type 2 diabetes mellitus with diabetic polyneuropathy, without long-term current use of insulin ([facility])- Primary Acquired hallux malleus of left foot Acquired hammer toes of both feet Foot callus Corns and callosities Partial nontraumatic amputation of right foot ([facility]) Partial nontraumatic amputation of foot, left ([facility]) Venous stasis dermatitis of both lower extremities Type 2 diabetes mellitus with diabetic microalbuminuria, without long-term current use of insulin ([facility]) Microalbuminuria Proteinuria Essential hypertension ([facility]) Unspecified essential hypertension Mixed hyperlipidemia ([facility]) Mixed hyperlipidemia Adverse reaction to statin medication Former smoker Personal history of tobacco use, presenting hazards to health Morbid obesity ([facility]) Morbid obesity documented in this encounter [facility]* Diagnosis Diabetic polyneuropathy associated with type 2 diabetes mellitus ([facility])- Primary Nontraumatic amputation of foot, left ([facility]) Nontraumatic amputation of foot, right ([facility]) documented in this encounter [facility]* Diagnosis Diabetic polyneuropathy associated with type 2 diabetes mellitus ([facility])- Primary Nontraumatic amputation of foot, left ([facility]) Nontraumatic amputation of foot, right ([facility]) documented in this encounter [facility]* Diagnosis Dyspepsia Dyspepsia and other specified disorders of function of stomach documented in this encounter [facility]* Diagnosis Polycythemia- Primary Polycythemia vera [facility] Encounter for Medicare annual wellness exam- Primary Advance directive in chart Encounter for screening for other disorder Screening for alcohol problem Screening for alcoholism Morbid (severe) obesity due to excess calories ([facility]) BMI 39.0-39.9,adult Type 2 diabetes mellitus with diabetic polyneuropathy, without long-term current use of insulin ([facility]) Type 2 diabetes mellitus with diabetic microalbuminuria, without long-term current use of insulin ([facility]) Type 2 diabetes mellitus with foot ulcer (CODE) ([facility]) Non-pressure chronic ulcer of other part of unspecified foot with unspecified severity ([facility]) Partial nontraumatic amputation of right foot ([facility]) Partial nontraumatic amputation of foot, left ([facility]) Atherosclerosis of [place] coronary artery of [place] heart without angina pectoris ([facility]) History of myocardial infarction ([facility]) Mixed hyperlipidemia ([facility]) Mixed hyperlipidemia Adverse reaction to statin medication Primary open angle glaucoma of both eyes, unspecified glaucoma stage ([facility]) documented in this encounter [facility]* Diagnosis Dyspepsia Dyspepsia and other specified disorders of function of stomach Essential hypertension ([facility]) Unspecified essential hypertension Microalbuminuria Proteinuria Mixed hyperlipidemia ([facility]) Mixed hyperlipidemia Type 2 diabetes mellitus with diabetic microalbuminuria, without long-term current use of insulin ([facility]) Type 2 diabetes mellitus with diabetic polyneuropathy, without long-term current use of insulin ([facility]) documented in this encounter [facility] Healthcare[facility] note* Diagnosis Essential hypertension ([facility])- Primary Unspecified essential hypertension Microalbuminuria Proteinuria Type 2 diabetes mellitus with diabetic microalbuminuria, without long-term current use of insulin ([facility]) Type 2 diabetes mellitus with diabetic polyneuropathy, without long-term current use of insulin ([facility]) Mixed hyperlipidemia ([facility]) Mixed hyperlipidemia Adverse reaction to statin medication documented in this encounter [facility]* Diagnosis Lumbar paraspinal muscle spasm Other symptoms referable to back Dyspepsia Dyspepsia and other specified disorders of function of stomach Type 2 diabetes mellitus with diabetic polyneuropathy, without long-term current use of insulin ([facility]) documented in this encounter [facility] Healthcare[facility] note* Diagnosis Lumbar paraspinal muscle spasm Other symptoms referable to back documented in this encounter [facility] HealthcareEvaluation noteNo assessment information availableClermont [facility] Work Phone: Evaluation note* Diagnosis Dyspepsia Dyspepsia and other specified disorders of function of stomach [facility] Narrative No data available for this section [facility] Hospital Discharge instructions No data available for this section [facility] progress note No data available for this section [facility] reason for referral (narrative)No reason for referral information availableClermont [facility] Work Phone: Summary Purpose Family History [...] FoundDocuments on File Type Date Recorded Patient Shipper Expl anation Advance Directives and Livin g Will Advance Directives and Livin g Will 08/31/2013 9:46 AM Power of Airplane Coverer Power of Airplane Coverer 08/31/2013 9:46 AM Latest Code Status on File Code Status Date Activated Date Inactivated Comments Full Code 08/06/2016 9:06 AM 08/09/2016 5:53 PM Full Code 08/04/2016 9:28 PM 08/06/2016 9:06 AM Full Code 05/15/2015 12:42 PM 05/19/2015 6:52 PM Full Code 05/12/2015 11:22 AM 05/15/2015 12:42 PM Full Code 05/13/2014 2:36 PM 05/13/2014 9:20 PM Documents on File Type Date Recorded Patient Shipper Expl anation ACP-Advance Directive ACP-Power of Airplane Coverer ACP-Advance Directive 08/31/2013 9:46 AM ACP-Power of Airplane Coverer 08/31/2013 9:46 AM Documents on File Type Date Recorded Patient Shipper Expl anation ACP-Advance Directive 08/31/2013 9:46 AM ACP-Power of Airplane Coverer 08/31/2013 9:46 AM Latest Code Status on [...] Documents on File Type Date Recorded Patient Shipper Expl anation Advance Directives and Living Will 11/20/2019 2018-05-09 Living Wi ll Advance Directives and Living Will 11/20/2019 2018-05-09 Power Of Airplane Coverer Documents on File Type Date Recorded Patient Shipper Expl anation ACP-Power of Airplane Coverer 08/31/2013 9:46 AM ACP-Advance Directive 08/31/2013 9:46 [...] 9:24am History of Present Illness * Luh Hoffman, ARUN - 03/13/2019 8:24 AM EDT 0800 Pt [...] today and rest. documented in this encounter* Sidar Bustamante RN - 01/12/2019 8:16 AM EDT [...] section and content) DATE CREATED AUTHOR 11/24/2017 [facility] DATE CREATED AUTHOR AUTHOR'S ORGANIZ ATION 03/15/2018 [facility] DATE CREATED AUTHOR AUTHOR'S ORGANIZ ATION 09/26/2021 [facility] DATE CREATED AUTHOR AUTHOR'S ORGANIZ ATION 11/13/2022 [facility] DATE CREATED AUTHOR AUTHOR'S ORGANIZ ATION 07/07/2024 [facility] DATE CREATED AUTHOR AUTHOR'S ORGANIZ ATION 09/14/2024 [facility] DATE CREATED AUTHOR AUTHOR'S ORGANIZ ATION 09/19/2024 [facility] EPIC DATE CREATED AUTHOR AUTHOR'S ORGANIZ ATION 10/13/2024 [facility] DATE CREATED AUTHOR AUTHOR'S ORGANIZ ATION 01/08/2025 [facility] DATE CREATED AUTHOR AUTHOR'S ORGANIZ ATION 01/11/2025 [facility] DATE CREATED AUTHOR AUTHOR'S ORGANIZ ATION 02/10/2025 [facility] Care Team (unrecognized sect ion and content) Acidity Tester Relationship Specialty Start Date End Date Jordan Duncan MD PCP - General 07/25/19 Acidity Tester Relationship Specialty Start Date End Date Jordan Duncan MD [address] [place] [address] PCP - General Family Medicine 10/25/22 Mitch Mello MD [address] [place] [address] Referring Physician Cardiology 05/17/23 Jr. Anuja Henson, [address] [address] Referring Physician Orthopaedic Surgery 05/17/23 Brody Ibrahim DPM [address] [place] [address] Referring Physician Podiatry 05/17/23 Acidity Tester Relationship Specialty Start Date End Date Jordan Duncan MD [address] [place] [address] (Fax) PCP - General Family Medicine 10/25/22 Mitch Mello MD [address] [place] [address] Referring Physician Cardiology 05/17/23 Jr. Anuja Henson, DO [address] [address] Referring Physician Orthopaedic Surgery 05/17/23 Brody Ibrahim DPM [address] [place] [address] Referring Physician Podiatry 05/17/23 Acidity Tester Relationship Specialty Start Date End Date Jordan Duncan MD [address] [place] [address] (Fax) PCP - General Family Medicine 10/25/22 Jordan Duncan MD [address] [place] [address] PCP - ACO Reach 08/05/23 Mitch Mello MD [address] [place] [address] Referring Physician Cardiology 05/17/23 Jr. Anuja Henson DO [address] [address] Referring Physician Orthopaedic Surgery 05/17/23 Brody Ibrahim DPM [address] [place] [address] Referring Physician Podiatry 05/17/23 Acidity Tester Relationship Specialty Start Date End Date Jordan Duncan MD [address] [place] [address] PCP - General Family Medicine 10/25/22 Jordan Duncan MD [address] [place] [address] PCP - ACO Reach 08/05/23 Mitch Mello MD [address] [place] [phone] Referring Physician Cardiology 05/17/23 Jr. Anuja Henson DO [address] [address] Referring Physician Orthopaedic Surgery 05/17/23 Brody Ibrahim DPM [address] [place] [address] Referring Physician Podiatry 05/17/23 Acidity Tester Relationship Specialty Start Date End Date Jordan Duncan MD [address] [place] [address] (Fax) PCP - General Family Medicine 10/25/22 Jordan Duncan MD [address] [place] [phone] (Fax) PCP - ACO Reach 08/05/23 Mitch Mello MD [address] [place] [phone] Referring Physician Cardiology 05/17/23 Jr. Anuja Henson DO [address] [place] [address] Referring Physician Orthopaedic Surgery 05/17/23 Brody Ibrahim DPM [address] [place] [address] [place] [address] Referring Physician Podiatry 05/17/23 Acidity Tester Relationship Specialty Start Date End Date Jordan Duncan MD [address] [place] [phone] (Fax) PCP - General Family Medicine 10/25/22 Jordan Duncan MD [address] [place] [address] (Fax) PCP - ACO Reach 08/05/23 Mitch Mello MD [address] [place] [phone] Referring Physician Cardiology 05/17/23 Jr. Anuja Henson DO 112 [facility] [address] [place] [address] Referring Physician Orthopaedic Surgery 05/17/23 Brody Ibrahim DPM [address] [place] [address] Referring Physician Podiatry 05/17/23 Acidity Tester Relationship Specialty Start Date End Date Jordan Duncan MD [address] [place] [address] (Fax) PCP - General Family Medicine 10/25/22 Jordan Duncan MD [address] [place] [address] (Fax) PCP - ACO Reach 08/05/23 Mitch Mello MD [address] [place] [address] Referring Physician Cardiology 05/17/23 Jr. Anuja Henson DO [address] [address] Referring Physician Orthopaedic Surgery 05/17/23 Brody Ibrahim DPM [address] [place] [address] Referring Physician Podiatry 05/17/23 Acidity Tester Relationship Specialty Start Date End Date Jordan Duncan MD [address] [address] (Fax) PCP - General Family Medicine 10/25/22 Jordan Duncan MD [address] [place] [address] (Fax) PCP - ACO Reach 08/05/23 Mitch Mello MD [address] [place] [address] Referring Physician Cardiology 05/17/23 Jr. Anuja Henson DO [address] [place] [address] Referring Physician Orthopaedic Surgery 05/17/23 Brody Ibrahim DPM [address] [place], [place] [phone] Referring Physician Podiatry 05/17/23 Acidity Tester Relationship Specialty Start Date End Date Jordan Duncan MD [address] [place] [address] (Fax) PCP - General Family Medicine 10/25/22 Jordan Duncan MD [address] [place] [address] (Fax) PCP - ACO Reach 08/05/23 Mitch Mello MD [address] [place] [address] Referring Physician Cardiology 05/17/23 Jr. Anuja Henson DO [address] [place] [address] Referring Physician Orthopaedic Surgery 05/17/23 Brody Ibrahim DPM [address] [place] [address] Referring Physician Podiatry 05/17/23 Acidity Tester Relationship Specialty Start Date End Date Jordan Duncan MD [address] [place] [address] (Fax) PCP - General Family Medicine 10/25/22 Jordan Duncan MD [address] [facility] 100 [place] [address] (Fax) PCP - ACO Reach 08/05/23 Mitch Mello MD [address] [place] [address] Referring Physician Cardiology 05/17/23 Jr. Anuja Henson DO [address] [facility] [address] [place] [address] Referring Physician Orthopaedic Surgery 05/17/23 Brody Ibrahim DPM [address] [place] [address] Referring Physician Podiatry 05/17/23 Acidity Tester Relationship Specialty Start Date End Date Jordan Duncan MD [address] [facility] 100 [place] [address] (Fax) PCP - General Family Medicine 10/25/22 Jordan Duncan MD [address] [facility] 100 [place] [address] (Fax) PCP - ACO Reach 08/05/23 Mitch Mello MD [address] [place] [address] Referring Physician Cardiology 05/17/23 Jr. Anuja Henson, [address] [place] [address] Referring Physician Orthopaedic Surgery 05/17/23 Brody Ibrahim DPM [address] [place] [address] Referring Physician Podiatry 05/17/23 Acidity Tester Relationship Specialty Start Date End Date Jordan Duncan MD [address] [place] [address] (Fax) PCP - General Family Medicine 10/25/22 Jordan Duncan MD [address] [place] [address] (Fax) PCP - ACO Reach 08/05/23 Mitch Mello MD [address] [place] [address] Referring Physician Cardiology 05/17/23 Jr. Anuja Henson DO [address] [place] [address] Referring Physician Orthopaedic Surgery 05/17/23 Brody Ibrahim DPM [address] [place] [address] Referring Physician Podiatry 05/17/23 Acidity Tester Relationship Specialty Start Date End Date Jordan Duncan MD [address] [place] [address] (Fax) PCP - General Family Medicine 10/25/22 Jordan Duncan MD [address] [place] [address] PCP - ACO Reach 08/05/23 Mitch Mello MD [address] [place] [address] Referring Physician Cardiology 05/17/23 Jr. Anuja Henson, [address] [place] [address] Referring Physician Orthopaedic Surgery 05/17/23 Brody Ibrahim DPM [address] [place] [address] Referring Physician Podiatry 05/17/23 Acidity Tester Relationship Specialty Start Date End Date Jordan Duncan MD (Fax) PCP - General 07/25/19 Acidity Tester Relationship Specialty Start Date End Date Jordan Duncan MD [address] [place] [address] (Fax) PCP - General Family Medicine 10/25/22 Jordan Duncan MD [address] [place] [address] (Fax) PCP - ACO Reach 08/05/23 Mitch Mello MD [address] [place] [address] Referring Physician Cardiology 05/17/23 Jr. Anuja Henson, [address] [facility] [address] [place] [address] Referring Physician Orthopaedic Surgery 05/17/23 Brody Ibrahim DPM [address] [place] [address] Referring Physician Podiatry 05/17/23 Acidity Tester Relationship Specialty Start Date End Date Jordan Duncan MD [address] [place] [address] PCP - General Family Medicine 10/25/22 Jordan Duncan MD [address] [place] [address] PCP - ACO Reach 08/05/23 Jr. Anuja Henson DO [address] [place] [address] Referring Physician Orthopaedic Surgery 05/17/23 Brody Ibrahim DPM [address] [place] [address] Referring Physician Podiatry 05/17/23 Anuja Huddleston MD [address] [place] [phone] Referring Physician Family Medicine 07/25/24 Topher Saavedra MD [address] [place] [address] Referring Physician Urology 07/25/24 Kitty Edmond OD [address] [facility] [place] [address] Referring Physician Optometry 07/25/24 Acidity Tester Relationship Specialty Start Date End Date Jordan Duncan MD [address] [place] [address] (Fax) PCP - General Family Medicine 10/25/22 Jordan Duncan MD [address] [place] [address] (Fax) PCP - ACO Reach 08/05/23 Jr. Anuja Henson DO [address] [place] [address] Referring Physician Orthopaedic Surgery 05/17/23 Brody Ibrahim DPM [address] [facility] [place] [address] Referring Physician Podiatry 05/17/23 Anuja Huddleston MD [address] [place] [phone] Referring Physician Family Medicine 07/25/24 Topher Saavedra MD [address] [place], [place] [phone] Referring Physician Urology 07/25/24 Kitty Edmond OD [facility] [place] [address] Referring Physician Optometry 07/25/24 Acidity Tester Relationship Specialty Start Date End Date Jordan Duncan MD [address] [facility] 100 [place] [address] (Fax) PCP - General Family Medicine 10/25/22 Jordan Duncan MD [address] [facility] 100 [place] [address] (Fax) PCP - ACO Reach 08/05/23 Jr. Anuja Henson DO [address] [place] [address] Referring Physician Orthopaedic Surgery 05/17/23 Brody Ibrahim DPM [address] [place] [address] Referring Physician Podiatry 05/17/23 Anuja Huddleston MD [address] [place] [address] Referring Physician Family Medicine 07/25/24 Topher Saavedra MD [address] [place] [address] Referring Physician Urology 07/25/24 Kitty Edmond OD [address] [facility] [place] [address] Referring Physician Optometry 07/25/24 Acidity Tester Relationship Specialty Start Date End Date Jordan Duncan MD [address] [place] [address] PCP - General Family Medicine 10/25/22 Jordan Duncan MD [address] [place] [address] PCP - ACO Reach 08/05/23 Jr. Anuja Henson DO [address] [place] [address] Referring Physician Orthopaedic Surgery 05/17/23 Brody Ibrahim DPM [address] [place] [address] Referring Physician Podiatry 05/17/23 Anuja Huddleston MD [address] [place] [phone] Referring Physician Family Medicine 07/25/24 Topher Saavedra MD [address] [place] [address] Referring Physician Urology 07/25/24 Kitty Edmond OD [address] [facility] [place] [address] Referring Physician Optometry 07/25/24 Acidity Tester Relationship Specialty Start Date End Date Jordan Duncan MD [address] [place] [address] PCP - General Family Medicine 10/25/22 Jordan Duncan MD [address] [place] [address] PCP - ACO Reach 08/05/23 Jr. Anuja Henson DO [address] [place] [address] Referring Physician Orthopaedic Surgery 05/17/23 Brody Ibrahim DPM [address] [place] [address] Referring Physician Podiatry 05/17/23 Anuja Huddleston MD [address] [place] [phone] (Fax) Referring Physician Family Medicine 07/25/24 Topher Saavedra MD [address] [place] [address] Referring Physician Urology 07/25/24 Kitty Edmond, CATHERINE [address] [facility] [place] [address] Referring Physician Optometry 07/25/24 Acidity Tester Relationship Specialty Start Date End Date Jordan Duncan MD [address] [place] [address] PCP - General Family Medicine 10/25/22 Jordan Duncan MD [address] [place] [address] PCP - ACO Reach 08/05/23 Jr. Anuja Henson DO [address] [place] [address] Referring Physician Orthopaedic Surgery 05/17/23 Brody Ibrahim DPM [address] [place] [address] Referring Physician Podiatry 05/17/23 Anuja Huddleston MD [address] [place] [phone] Referring Physician Family Medicine 07/25/24 Topher Saavedra MD [address] [place] [address] Referring Physician Urology 07/25/24 Kitty Edmond, CATHERINE [address] [place] [address] Referring Physician Optometry 07/25/24 Acidity Tester Relationship Specialty Start Date End Date Jordan Duncan MD [address] [place] [address] PCP - General Family Medicine 10/25/22 Jordan Duncan MD [address] [place] [address] (Fax) PCP - ACO Reach 08/05/23 Jr. Anuja Henson DO [address] [place] [address] Referring Physician Orthopaedic Surgery 05/17/23 Brody Ibrahim DPM [address] [place] [address] Referring Physician Podiatry 05/17/23 Anuja Huddleston MD [address] [place] [phone] Referring Physician Family Medicine 07/25/24 Topher Saavedra MD [address] [place] [address] Referring Physician Urology 07/25/24 Kitty Edmond OD [address] [facility] [place] [address] Referring Physician Optometry 07/25/24 Korin Kraft, ARUN [address] [facility] [address] [place] [address] Registered Nurse Family Medicine 12/24/24 Acidity Tester Relationship Specialty Start Date End Date Jordan Duncan MD [address] [place] [address] (Fax) PCP - General Family Medicine 10/25/22 Jordan Duncan MD [address] [place] [address] (Fax) PCP - ACO Reach 08/05/23 Jr. Anuja Henson DO [address] [place] [address] Referring Physician Orthopaedic Surgery 05/17/23 Brody Ibrahim DPM [address] [facility] [place] [address] Referring Physician Podiatry 05/17/23 Anuja Huddleston MD [address] [place] [phone] Referring Physician Family Medicine 07/25/24 Topher Saavedra MD [address] [place], [place] [phone] Referring Physician Urology 07/25/24 Kitty Edmond OD [facility] [place] [address] Referring Physician Optometry 07/25/24 Korin Kraft, ARUN [address] [facility] [address] [place] [address] Registered Nurse Family Medicine 12/24/24 Acidity Tester Relationship Specialty Start Date End Date Jordan Duncan MD [address] [place] [address] (Fax) PCP - General Family Medicine 10/25/22 Jordan Duncan MD [address] [place] [address] PCP - ACO Reach 08/05/23 Jr. Anuja Henson DO [address] [place] [address] Referring Physician Orthopaedic Surgery 05/17/23 Brody Ibrahim DPM [address] [place] [address] Referring Physician Podiatry 05/17/23 Anuja Huddleston MD [address] [place] [address] Referring Physician Family Medicine 07/25/24 Topher Saavedra MD [address] [place] [address] Referring Physician Urology 07/25/24 Kitty Edmond OD [address] [place] [address] Referring Physician Optometry 07/25/24 Team Status: Inactive [...] Callouses. PCP: Dr. Duncan 10/27/23, A1C: 6.3 (5), BS: 132 SS: 14 Reason Comments Hypertension Hyperlipidemia Diabetes Reason Comments Shoe Measure Juan Miguel Jennings is a 74 y.o. male who presents for Foot Callouses. PCP: Dr. 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 male who presents for Foot Callouses. PCP: Dr. Duncan 03/27/24, A1C: 6.4 (5/), BS: 132 SS: 14. Reason Comments Diabetic shoe check Juan Miguel Jennings is a 74 y.o. male who presents diabetic shoe check. PCP: Dr. Duncan 03/27/24, A1C: 6.4 (5), [...] BE BASED ON THE PRIMARY CLINICAL RECORDS. [employer] provides no warranty or guarantee of the accuracy or completeness of information in this document.
== END 2025-02-12 08:47 | disposition home or self-care (01) ==
LOC: WC 08:46
PROVIDERS: PCP Family Medicine; Visit Provider Physician Assistant
DX: L84 Corns and callosities (principal); E11.40 Type 2 diabetes mellitus with diabetic neuropathy, unspecified; E11.621 Type 2 diabetes mellitus with foot ulcer; L97.522 Non-pressure chronic ulcer of other part of left foot with fat layer exposed
CPT/HCPCS: 11056

== ENCOUNTER 2025-02-26 08:54 | Outpatient (OUT) | payer MEDICARE, SELFPAY ==
--- OUTSIDE RECORDS SUMMARY | 2025-02-26 09:04 | XMS_ITS | CCD ---
Author Organization [facility] Care Team Providers Care Curriculum Assistant Principal Name Role Phone PHYSICIAN, DEFAULT Unavailable Unavailable PHYSICIAN, DEFAULT Unavailable Unavailable Diego Bartlett Primary Care Provider Jordan Duncan Primary Care Provider Jordan Duncan MD Primary Care Provider [phone] JORDAN DUNCAN Primary Care Physician Jordan Duncan MD Primary Care Provider [phone] JORDAN DUNCAN Primary Care Physician Unavail able Jordan Duncan MD Primary Care Provider ENEDINA HARGROVE Attending Unavailable HEMEYER ., DR ALTAORRE Primary Care Unavailable ENEDINA HARGROVE Admitting Unavailable [...] Primary Care Provider Mitch Mello MD Unavailable [phone] Jr. Anuja Henson DO Unavailable Brody Ibrahim DPM Unavailable [phone] Jordan Duncan MD Unavailable Jordan Duncan MD Primary Care Provider Jordan Duncan MD Unavailable Jordan Duncan MD Primary Care Provider [phone] Jordan Duncan MD Unavailable [phone] Jordan Duncan MD Primary Care Provider WILLI SANCHEZ Referring Unavailable JORDAN DUNCAN Primary Care Unavailable HEMEJORDAN STUBBS Primary Care Unavailable WILLI SANCHZE Referring Unavailable HEMEYER, JORDAN Brown Primary Care Unavailable WILLI SANCHEZ Referring Unavailable Anuja Huddleston MD Unavailable Topher Saavedra MD Unavailable [phone] Kitty Edmond OD Unavailable Anuja Huddleston MD Unavailable BRODY IBRAHIM Attending Unavailable JORDAN DUNCAN Attending Unavailable JORDAN DUNCAN Attending Unavailable BRODY IBRAHIM Attending Unavailable BRODY IBRAHIM Attending Unavailable BRODY IBRAHIM Attending Unavailable HEMEYER, JORDAN Brown Attending Unavailable BRODY IBRAHIM Attending Unavailable BRODY IBRAHIM Attending Unavailable ALEXANDRIA, BRODY Xiao Attending Unavailable JORDAN DUNCAN Attending Unavailable JORDAN DUNCAN Attending Unavailable Abena DIAS, Korin Unavailable Enedina Hargrove DPM Attending Provider Enedina Hargrove Attending Unavailable Enedina Hargrove Admitting Unavailable PAUL CLEMONS Attending Unavailable ANUJA HUDDLESTON Attending Unavailable RACHEL ALEJO Attending Unavailable SAAVEDRA, Topher Ordoñez Attending Unavailable SAAVEDRA, Topher R Attending Unavailable SAAVEDRA, Topher R Attending Unavailable SAAVEDRA, Topher R Attending Unavailable SAAVEDRA, Topher R Attending Unavailable SAAVEDRA, Topher R Attending Unavailable SAAVEDRA, Topher R Attending Unavailable Allergies Allergy Classification Reported Allergen(s) Allergy Type Date of Onset Reaction(s) Facility (4 sources) Clindamycin/Linc omycin Propensity to adverse reactions to drug 8 [place] (3 sources) Clindamycin [facility] 2 [facility] ([facility] sources) glipiZIDE; Translations: [GLIPIZIDE] Drug Allergy 2 Diarrhea [facility] Work Phone: (20 sources) metFORMIN; Translations: [METFORMIN] Drug Allergy 2 Diarrhea, Unknown [facility] Work Phone: (20 sources) Pravastatin; Translations: [PRAVASTATIN] Drug Allergy 2 Unknown [facility] Work Phone: (4 sources) rosuvastatin; Translations: [ROSUVASTATIN] Drug Allergy 2 [facility] Work Phone: (2 sources) Clindamycin; Translations: [CLINDAMYCIN] Drug Allergy 7 [facility] (1 source) glipiZIDE Drug Allergy 7 [facility] (1 source) metFORMIN Drug Allergy 7 [facility] (20 sources) Clindamycin Drug Allergy 2 Diarrhea [facility] (20 sources) ezetimibe; Translations: [EZETIMIBE] Drug Allergy 2 Unknown [facility] (20 sources) glipiZIDE Drug Allergy 2 Diarrhea, Unknown [facility] (20 sources) Rosuvastatin calcium Allergy to substance 1 Unknown [facility] Healthcare Medications Current Medications Medication Drug [...] mouth Active Cholecalciferol (VITAMIN D3) 50 MCG (1999 [...] number: 1 take 2 tablets by mo uth once [...] MG 24 hr tablet Indications: 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 (CMS/HCC) Take 1.5 [...] # 90 tab(s), Refills(s) 3, Pharmacy: [facility]/pharmacy #[id number], 198, cm, 02/08/25 8:10:00 EDT, Height/Length [...] # 180 cap(s), Refills(s) 3, Pharmacy: [facility]/pharmacy #[id number], patti Read, 05/21/24 10:59:00 EST, Height/Length Dosing, 160, kg, 05/21/24 10:59:00 EST, Weight Dosing Start Date: 07/16/24 Status: Ordered Quantity: 180.0 Unit: cap(s) Repeat number: 4 Start: 01-11-2024 take 1 capsule by [facility] twice daily tamsulosin 0.4 mg Cap 0.4 mg = 1 cap(s), Oral, BID, # 180 cap(s), Refills(s) 3, Pharmacy: [facility]/pharmacy #[id number], patti Read, 12/05/23 10:49:00 EDT, Height/Length Dosing, 150.3, kg, 12/05/23 10:49:00 EDT, Weight Dosing Start Date: 01/11/24 Status: Ordered Start: 06-18-2022 take 1 capsule by [facility] once daily tamsulosin 0.4 mg Cap 0.4 mg = 1 cap(s), Oral, Daily, # 90 cap(s), Refills(s) 3, Pharmacy: [facility]/pharmacy #[id number], 198patti, 11/05/22 10:14:00 EDT, Height/Length Dosing, 150, kg, 11/05/22 10:14:00 EDT, Weight Dosing Start Date: 05/26/23 Status: Ordered take 1 capsule by [facility] every twenty-four hours in the morning [...] # 10 mL, Refills(s) 1, Pharmacy: [facility]/pharmacy #[id number], 198, cm, 12/05/23 10:49:00 EDT, Height/Length Dosing, 150.3, kg, 12/05/23 10:49:00 EDT, Weight Dosing Start Date: 03/27/24 Status: Ordered Start: 01-03-2024 testosterone c ypionate 200 mg/mL IM Richelle 400 mg, IntraMuscular, q4wk, # 10 mL, Refills(s) 1, Pharmacy: [facility]/pharmacy #[id number], 198, cm, 12/05/23 10:49:00 EDT, Height/Length Dosing, 150.3, kg, 12/05/23 10:49:00 EDT, Weight Dosing Start Date: 01/03/24 Status: Ordered Start: 06-20-2023 testosterone c ypionate 200 mg/mL IM Richelle 450 mg, IntraMuscular, q4wk, # 10 mL, Refills(s) 1, Pharmacy: [facility]/pharmacy #[id number], 198, cm, 06/20/23 11:05:00 EST, Height/Length Dosing, 149, kg, 06/20/23 11:05:00 EST, Weight Dosing Start Date: 06/20/23 Status: Ordered Start: 05-09-2023 testosterone c ypionate 200 mg/mL IM Richelle 400 mg, IntraMuscular, q4wk, # 10 mL, Refills(s) 1, Pharmacy: [facility]/pharmacy #[id number], 198, cm, 11/05/22 10:14:00 EDT, Height/Length Dosing, 150, kg, 11/05/22 10:14:00 EDT, Weight Dosing Start Date: 05/09/23 Status: Ordered Start: 02-08-2023 testosterone c ypionate 200 mg/mL IM Richelle 400 mg, IntraMuscular, q4wk, # 10 mL, Refills(s) 2, Pharmacy: [facility]/pharmacy #[id number], 198, cm, 11/05/22 10:14:00 EDT, Height/Length Dosing, 150, kg, 11/05/22 10:14:00 EDT, Weight Dosing Start Date: 02/08/23 Status: Ordered Start: 08-27-2022 testosterone c ypionate 200 mg/mL IM Richelle 400 mg, IntraMuscular, q4wk, # 10 mL, Refills(s) 2, Pharmacy: [facility]/pharmacy #[id number], 198, cm, 06/18/22 9:10:00 EST, Height/Length Dosing, 164, kg, 06/18/22 9:10:00 EST, Weight Dosing Start Date: 08/27/22 Status: Ordered testosterone cypionate 200 mg/mL intramuscular solution (17 sources) Start: 02-01-2022 testosterone c ypionate 200 mg/mL intramuscular solution 400 mg = 2 mL, IntraMuscular, q4wk, 400mg once a month, # 10 mL, Refills(s) 3, Pharmacy: [facility]/pharmacy #[id number], 198, cm, 02/01/22 9:53:00 EDT, Height/Length Dosing, 166, kg, 02/01/22 9:53:00 EDT, Weight Dosing Start Date: 02/01/22 Status: Ordered Start: 11-23-2021 testosterone c ypionate 200 mg/mL intramuscular solution 350 mg, IntraMuscular, q4wk, # 10 mL, Refills(s) 1, Pharmacy: [facility]/pharmacy #[id number], 198, cm, 08/03/21 14:37:00 EST, Height/Length Dosing, 166, kg, 08/03/21 14:37:00 EST, Weight Dosing Start Date: 11/23/21 Status: Ordered Start: 08-03-2021 testosterone c ypionate 200 mg/mL intramuscular solution 350 mg, IntraMuscular, q4wk, # 10 mL, Refills(s) 1, Pharmacy: [facility]/pharmacy #[id number], 198, cm, 08/03/21 14:37:00 EST, [...] Coronary arteriosclerosis; Translations: [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] Onset: 04-08-2017 [...] 01-13-2023 01-11-2023 Chronic 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 (1 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; 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: [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 ANTICOAGULANTS] Onset: 10-12-2022 Episodic 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 (1 source) custodial (current) use of aspirin; Translations: [ALF CURRENT USE OF ASPIRIN] Onset: 10-12-2022 Episodic 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 (1 source) custodial (current) use of oral hypoglycemic drugs; Translations: [ALF USE ORAL HYPOGLYCEMIC DX] Onset: 10-12-2022 Episodic 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 (1 source) Other mcfp (current) drug therapy; Translations: [OTH ALF CURRENT [...] of right toe] Onset: 08-05-19 Resolved : 01-14-20 23 08-05-2016 Episodic Unclassified (3 sources) Patient encounter status; Translations: [Screening for colorectal cancer] Onset: 02-13-20 14 Resolved : 04-03-20 18 04-03-2018 Unclassified (1 source) CONTACT W/AND (SUSP) EXPOS COVID-19; Translations: [CONTACT W/AND (SUSP) EXPOS COVID-19] Onset: 01-19-20 Results Test Name Value Interpretation Reference Range Facility CBC W/AUTO DIFFon 02-14-2025 ABS IMMATURE GRAN 0.08 K/uL High 0.00-0.06 [facility] Comment on above: Result Comment: UNLE SS OTHERWISE INDICATED, ALL TESTING PERFORMED AT: [facility] [address] [place] [address] ASBESTOS SIDING INSTALLER: JONI NI M.D. CLIA NUMBER [id number] CAP ACCREDITATION AUID [id number] ABS NEUTROPHILS 3.85 K/uL Normal 1.9-8.0 [facility] Basophils (Bld) [#/Vol] 0.05 10*3/uL Normal 0.0-0.2 [facility] Basophils/100 WBC (Bld) 0.7 % Normal 0-2 [facility] Eosinophils (Bld) [#/Vol] 0.47 10*3/uL Normal 0.0-0.80 [facility] Eosinophils/100 WBC (Bld) 7.0 % High 0-5 [facility] Erythrocyte distribution width (RBC) [Ratio] 13.5 % Normal 11.2-14.8 [facility] Hematocrit (Bld) [Volume fraction] 40.4 % Normal 39-52 [facility] Hemoglobin (Bld) [Mass/Vol] 13.5 g/dL Normal 13.0-18.0 [facility] IMMATURE GRAN 1.2 % Normal 0-2 [facility] Lymphocytes (Bld) [#/Vol] 1.41 10*3/uL Normal 0.9-5.2 [facility] Lymphocytes/100 WBC (Bld) 21.0 % Normal 20-45 [facility] MCH (RBC) [Entitic mass] 32.8 pg High 26.0-32.0 [facility] MCHC (RBC) [Mass/Vol] 33.4 g/dL Normal 31.0-36.0 [facility] MCV (RBC) [Entitic vol] 98 fL Normal 75-100 [facility] Monocytes (Bld) [#/Vol] 0.85 10*3/uL Normal 0.1-1.0 [facility] Monocytes/100 WBC (Bld) 12.7 % Normal 0-13 [facility] Neutrophils/100 WBC (Bld) 57.4 % Normal 45-75 [facility] PLATELET 134 THOUS/CMM Low 140-440 [facility] RBC 4.11 MILL/CMM Low 4.40-6.10 [facility] WBC 6.7 THDS/CMM Normal 3.6-11.0 [facility] Urology Office/Clinic Noteon 02-08-2025 Urology Office/Clinic Note [...] of frequency *oxybutin, flomax needs refills sent [facility] IPSS: 8 History of Present Illness Tests [...] was declined from donating blood to the [facility] and had to get an order from oncology). 01/14/25 - Hgb 13.4, Hct 39.4 Stopped Testosterone IM 400 mg q4wk at prior OV due to high hgb. T level decreased, as expected. Hgb improved since being off TRT despite pt never donating blood. Shares he can have units of blood taken in [place]. Does have to get a phlebotomy order [...] 10 mg qd. New rx sent to [facility] [place]. Call if emptying becomes difficult. -F/u in [...] Flomax bid Follow-up With When Contact Information Topher SAAVEDRA MD, URL [address] [place] [address] [place] [address] Additional Instructions: 6 mos Patient Education Benign [...] History of colon cancer Hx of terminal carman use of blood thinners Hyperlipidemia Hypertension Hypogonadism [...] Tab glipiZI (more content not included)... Normal [facility] Comment on above: Result Comment: [...] 39.4 % Low 42.0 - 54.0 % [facility] Hemoglobin (Bld) [Mass/Vol] 13.4 g/dL Low 14.0 - 18.0 g/dL [facility] IMMATURE GRANULOCYTES ABS AUTO 0.03 [facility] Immature granulocytes/100 WBC (Bld) 0.4 % 0.0 - 0.5 % [facility] Interpretation and review of laboratory results Abnormal [facility] LYMPHOCYTES ABSOLUTE AUTO 1.3 [facility] Lymphocytes/100 WBC (Bld) 17.1 % Low 20.5 - 60.0 % [facility] MCH (RBC) [Entitic mass] 32.4 pg 25.9 - 34.0 pg [facility] MCHC (RBC) [Mass/Vol] 34 g/dL 29.9 - 35.2 g/dL [facility] MCV (RBC) [Entitic vol] 95.4 fL High 80.0 - 94.0 fL [facility] MONOCYTES ABSOLUTE AUTO 1 High [facility] Monocytes/100 WBC (Bld) 13.4 % High 1.7 - 12.0 % [facility] NEUTROPHILS ABSOLUTE AUTO 4.5 [facility] Neutrophils/100 WBC (Bld) 62 % 43.0 - 75.0 % [facility] Platelet mean volume (Bld) [Entitic vol] 12.4 fL 9.5 - 13.5 fL [facility] EO # 0.5 [facility] TB PLT 116 Low [facility] TB RBC 4.13 Low [facility] TB[facility] WBC 7.3 [facility] 36on 01-08-2025 36 MD Maria G Peralta MA Blood testing ok, continue leqvio. Advised patient of Dr. Huddleston's findings. Patient verbalized understanding and agreed with plan of care. [facility] 01-01-2025 L Specimen: [id number] Received: 01/02/25 Status: PATRICIA Zhu Num: [id number] Spec Type: Surgical Subm Dr: Enedina Hargrove DPM, MS Tissues: A DIGIT AMPUTATION (RIGHT FIFTH TOE) Procedures: HE/3, Gross/Micro L4, Decalcification Age/ Patient Sex Location Account Attending Physician Juan Miguel Jennings 74/M LABELL [id number] Enedina Hargrove DPM, MS SPEC NUM: [id number] RECD: 01/02/25 STATUS: PATRICIA ZHU NUM: [id number] JUANA: 01/01/25-[address]: Enedina Hargrove DPM, MS ENTERED: 01/02/[address]: Christal,Lab SPEC TYPE: Surgical DEPT: RADHA MILNER ENTERED BY: [id number] RECV BY: [id number] ORDERED: HE/3, Gross/Micro L4, Decalcification ORDERED: HE/3, [...] skin margin submitted in A3. (3, , [id number] A) Microscopic Description Microscopic examination is performed. Specimen: [id number] Received: 01/02/25 Status: PATRICIA Zhu Num: [id number] Spec Type: Surgical Subm Dr: Enedina Hargrove,KATLIN, MS Tissues: A DIGIT AMPUTATION (RIGHT FIFTH TOE) Procedures: JUVENALAidan, Gross/Micro L4, Decalcification Patient: Juan Miguel Jennings [id number] ([facility]ly [facility]) Specimen: [id number] Received: 01/02/25 (Continued) Signed (signature on file) Christiano Lombardi MD 01/07/25 0938 Specimen: [id number] Received: 01/02/25 Status: PATRICIA Zhu Num: [id number] Spec Type: Surgical Subm Dr: Enedina Hargrove,DPM, MS Tissues: A DIGIT AMPUTATION (RIGHT FIFTH TOE) Procedures: HE/Aidan, Gross/Micro L4, Decalcification Patient: Juan Miguel Jennings [id number] (Continued) Specimen: [id number] Received: 01/02/25 (Continued) CPT Codes 40042, 27305 Specimen: [id number] Received: 01/02/25 Status: PATRICIA Zhu Num: [id number] Spec Type: Surgical Subm Dr: Enedina Hargrove,DPArin, MS Tissues: A DIGIT AMPUTATION (RIGHT FIFTH TOE) Procedures: HE/3, Gross/Micro L4, Decalcification Patient: Juan Miguel Jennings [id number] (Continued) Signed (signature on file) Christiano Lombardi MD 01/07/25 0938 Normal [facility] XR FOOT RT MIN 3Von 01-02-[address] [address] XRay Report Signed Patient: JUAN MIGUEL JENNINGS MR#: [id number] : 1950 Acct:[id number] Age/Sex: 74 / M ADM Date: 01/01/25 Loc: SURGOUT Attending Dr: Enedina Hargrove D.P.M. Ordering Physician: Enedina Hargrove D.P.M. Date of Service: 01/01/25 Procedure(s): XR foot RT min 3V Accession Number(s): [id number] cc: JORDAN DUNCAN ; Enedina Hargrove D.P.M. [address] [address] Patient Name: JUAN MIGUEL JENNINGS MRN: [id number] date: 1950 Sex: M Assigned Patient Location: [facility] [place] Current Patient Location: Accession/Order Number: [id number] Exam Date: 01/01/2025 15:03 Report Date: 01/01/2025 [...] Jr., D.O. 01/01/2025 3:04 PM Dictation Location: [place] [address] Electronically authenticated by: [id number] Y Date: 01/01/2025 15:04 Dictated By: John Pike M.D. Signed By: 01/01/25 1506 DD/ 1504 TD/TT: Drafter Electromechanical: [facility] Radiology, Radiologist, MD - 01/01/2025 The [place] [id number] XRay Report Signed Patient: JUAN MIGUEL JENNINGS MR#: [id number] : 1950 Acct:[id number] Age/Sex: 74 / M ADM Date: 01/01/25 Loc: SURGOUT Attending Dr: Enedina Hargrove D.P.M. Ordering Physician: Enedina Hargrove D.P.M. Date of Service: 01/01/25 Procedure(s): XR foot RT min 3V Accession Number(s): [id number] cc: JORDAN DUNCAN ; Enedina Hargrove D.P.M. The [address] [address] Patient Name: JUAN MIGUEL JENNINGS MRN: [facility]:[id number] date: 1950 Sex: M Assigned Patient Location: [facility] [place] Current Patient Location: Accession/Order Number: [id number] Exam Date: 01/01/2025 15:03 Report Date: 01/01/2025 [...] Jr., D.O. 01/01/2025 3:04 PM Dictation Location: [place] [address] Electronically authenticated by: [id number] Y Date: 01/01/2025 15:04 Dictated By: John Pike M.D. Signed By: 01/01/25 1506 DD/ 1504 TD/TT: Drafter Electromechanical: [facility] Radiology Study observation (narrative) [facility] XR FOOT RT MIN 3VOrdered By: Radiologist Radiology on 01-01-2025 [facility] Work Phone: ALL CBC WITH AUTO DIFFon BASOPHILS ABSOLUTE AUTO 0 [facility] Basophils/100 WBC (Bld) 0.6 % 0.2 - 2.0 % [facility] Eosinophils/100 WBC (Bld) 5.5 % 0.9 - 7.0 % [facility] Erythrocyte distribution width (RBC) [Ratio] 13.2 % 11.0 - 15.0 % [facility] Hematocrit (Bld) [Volume fraction] 40.2 % Low 42.0 - 54.0 % [facility] Hemoglobin (Bld) [Mass/Vol] 13.8 g/dL Low 14.0 - 18.0 g/dL [facility] IMMATURE GRANULOCYTES ABS AUTO 0.03 [facility] Immature granulocytes/100 WBC (Bld) 0.4 % 0.0 - 0.5 % [facility] Interpretation and review of laboratory results Abnormal [facility] LYMPHOCYTES ABSOLUTE AUTO 1.4 [facility] Lymphocytes/100 WBC (Bld) 19.7 % Low 20.5 - 60.0 % [facility] MCH (RBC) [Entitic mass] 33 pg 25.9 - 34.0 pg [facility] MCHC (RBC) [Mass/Vol] 34.3 g/dL 29.9 - 35.2 g/dL [facility] MCV (RBC) [Entitic vol] 96.2 fL High 80.0 - 94.0 fL [facility] MONOCYTES ABSOLUTE AUTO 0.8 [facility] Monocytes/100 WBC (Bld) 11.2 % 1.7 - 12.0 % [facility] NEUTROPHILS ABSOLUTE AUTO 4.4 [facility] Neutrophils/100 WBC (Bld) 62.6 % 43.0 - 75.0 % [facility] Platelet mean volume (Bld) [Entitic vol] 11.9 fL 9.5 - 13.5 fL [facility] EO # 0.4 [facility] TBH PLT 141 Low [facility] RBC 4.18 Low [facility] WBC 7.1 [facility] XR CHEST 2Von 12-28-[address] [address] XRay Report Signed Patient: JUAN MIGUEL JENNINGS MR#: [id number] : 1950 Acct:[id number] Age/Sex: 74 / M ADM Date: 12/28/24 Loc: [facility] Attending Dr: Enedina Hargrove D.P.M. Ordering Physician: Enedina Hargrove D.P.M. Date of Service: 12/28/24 Procedure(s): XR chest 2V Accession Number(s): [id number] cc: JORDAN DUNCAN ; Enedina Hargrove D.P.M. The [place] [id number] Patient Name: JUAN MIGUEL JENNINGS MRN: [facility]:[id number] date: 1950 Sex: M Assigned Patient Location: [facility] Current Patient Location: [facility] [place] Accession/Order Number: [id number] Exam Date: 12/28/2024 15:02 Report Date: 12/28/2024 [...] Palacios M.D. 12/28/2024 3:03 PM Dictation Location: [place] [address] Electronically authenticated by: [id number] Y Date: 12/28/2024 15:03 Dictated By: Tomer Palacios D.O. Signed By: 12/28/24 1506 DD/ 150 TD/TT: Drafter Electromechanical: [facility] Radiology, Radiologist, MD - 12/28/[address] [address] XRay Report Signed Patient: JUAN MIGUEL JENNINGS MR#: [id number] : 1950 Acct:[id number] Age/Sex: 74 / M ADM Date: 12/28/24 Loc: PST Attending Dr: Enedina Hargrove D.P.M. Ordering Physician: Enedina Hargrove D.P.M. Date of Service: 12/28/24 Procedure(s): XR chest 2V Accession Number(s): [id number] cc: JORDAN DUNCAN ; Enedina Hargrove D.P.M. [place] [address] Patient Name: JUAN MIGUEL JENNINGS MRN: [id number] date: 1950 Sex: M Assigned Patient Location: [facility] Current Patient Location: [facility] [place] Accession/Order Number: [id number] Exam Date: 12/28/2024 15:02 Report Date: 12/28/2024 [...] Palacios M.D. 12/28/2024 3:03 PM Dictation Location: [place] [address] Electronically authenticated by: [id number] Y Date: 12/28/2024 15:03 Dictated By: Tomer Palacios D.O. Signed By: 12/28/24 1506 DD/ 150 TD/TT: Drafter Electromechanical: GIOVANNI [facility] Radiology Study observation (narrative) [facility] XR CHEST 2VOrdered By: [facility] Radiology on 12-28-2024 [facility] [employer] Work Phone: ALL LIPID PROFILE (FASTING)o n 12-26-2024 CHOL HDL RATIO 4.3 [facility] Comment on above: 3.3 - 4.4 LOW RISK 4.4 - 7.1 AVERAGE RISK 7.1 - 11.0 MODERATE RISK >11.0 HIGH RISK Cholesterol [Mass/Vol] 172 mg/dL NINF - 200 mg/dL [facility] Cholesterol in HDL [Mass/Vol] 40 mg/dL 40 - 60 mg/dL [facility] Comment on above: > or =60 mg/dl - LOW CARDIOVASCULAR RISK <40 mg/dl - HIGH CARDIOVASCULAR RISK Interpretation and review of laboratory results Abnormal [facility] Magnesium [Mass/Vol] 77 mg/dL [facility] Comment on above: <100 mg/dl OPTIMAL 100-129 mg/dl NEAR OR ABOVE OPTIMAL 130-159 mg/dl BORDERLINE HIGH 160-189 mg/dl HIGH >190 mg/dl VERY HIGH Magnesium [Mass/Vol] 55.8 mg/dL [facility] Triglyceride [Mass/Vol] 279 mg/dL High NINF - 150 mg/dL [facility] 5 Albumin [Mass/Vol] 3.5 g/dL 3.4 - 5.0 g/dL [facility] ALBUMIN GLOBULIN RATIO 1 [facility] ALP [Catalytic activity/Vol] 77 U/L 46 - 116 U/L [facility] ALT [Catalytic activity/Vol] 44 U/L 16 - 63 U/L [facility] AST [Catalytic activity/Vol] 23 U/L 15 - 37 U/L [facility] Bilirubin [Mass/Vol] 0.5 mg/dL 0.2 - 1 .0 mg/dL [facility] Bilirubin.indirect [Mass/Vol] 0.1 mg/dL 0.0 - 0.2 mg/dL [facility] Globulin (S) [Mass/Vol] 3.6 g/dL [facility] Protein [Mass/Vol] 7.1 g/dL 6.4 - 8.2 g/dL [facility] No Panel Informationon 12-26 [facility] Office Visiton 12-21-2024 Follow-up visit [id number] Juan Miguel Jennings 1950 M Date Provider Department Center 12/21/2024 [id number], ADAM [facility] Family History Problem Relation Age of Onset Heart disease Mother Heart disease Father Family Status - Relation Status Age at Mother Father Level of Service:56275 [place] OFFICE/OUTPATIENT ESTABLISHED MOD MDM 30 MIN Normal [facility] CBC W/AUTO DIFFon 10-11-2024 ABS IMMATURE GRAN 0.03 K/uL Normal 0.00-0.06 [facility] Comment on above: Result Comment: UNLE SS OTHERWISE INDICATED, ALL TESTING PERFORMED AT: [facility] [address] [place] [address] ASBESTOS SIDING INSTALLER: JONI NI M.D. CLIA NUMBER [id number] CAP ACCREDITATION AUID [id number] ABS NEUTROPHILS 3.59 K/uL Normal 1.9-8.0 Pathology [...] <= 20 mg/L (U) [Mass/Vol] 150 mg/dL [facility] are Albumin/Creatinine DL <= 1.0 mg/L (U) [Ratio] 300 [facility] Creatinine (U) [Mass/Vol] 50 mg/dL [facility] No Panel Informationon 09-18 Interpretation and review of laboratory results Abnormal [facility] COMPREHENSIVE METABOLIC PANE Efren 09-13-2024 Albumin [Mass/Vol] 4.3 g/dL Normal 3.6-5.1 [facility] Comment on above: Performed By: #### 4 , 7599 #### [facility] [address], [address] [place] [address] Export Freight Specialist: Toan Lara MD #### [id number] #### [facility] [address] [place], [place] [phone] [employer] Fre[employer] Specialist: Parvin Gray Albumin/Globulin [Mass ratio] 1.5 {ratio} Normal 1.0-2.5 [facility] Comment on above: Performed By: #### 4 , 7599 #### [facility] [address], [address] [place] [address] [employer] Fre[employer] Specialist: Toan Lara MD #### [id number] #### [facility] [address] [place] [phone] [employer] Specialist: Parvin Gray ALP [Catalytic activity/Vol] 64 U/L Normal 35-144 [facility] Comment on above: Performed By: #### 4 96, 0 #### [facility] [address], [address] [place] [address] [employer] Fre[employer] Specialist: Toan Lara MD #### [id number] #### [facility] [address] [place], [place] [phone] [employer] Specialist: Parvin Gray ALT [Catalytic activity/Vol] 32 U/L Normal 9-46 [facility] Comment on above: Performed By: #### 4 , 0 #### [facility] [address], [address] [place] [address] [employer] Specialist: Toan Lara MD #### [id number] #### [facility] [address] [place], [place] [phone] Export Fre[employer] Specialist: Parvin Gray AST [Catalytic activity/Vol] 23 U/L Normal 10-35 [facility] Comment on above: Performed By: #### 4 , 7599 #### [facility] [address], [address] [place] [address] Export Fre[employer] Specialist: Toan Lara MD #### [id number] #### [facility] [address] Export Fre[employer] Specialist: Parvin Gray Bilirubin [Mass/Vol] 0.7 mg/dL Normal 0.2-1.2 [facility] Comment on above: Performed By: #### 4 , 7599 #### [facility] [place] [address] Export Fre[employer] Specialist: Toan Lara MD #### [id number] #### [facility] [address] [place], [place] [phone] Export Fre[employer] Specialist: Parvin Gray BUN/CREATININE RATIO SEE NOTE: Normal 6-22 [facility] Comment on above: Result Comment: Not Reported: BUN and Creatinine are within reference range. Performed By: #### 4 , 7599 #### [facility] [address], [address] [place] [address] Export Fre[employer] Specialist: Toan Lara MD #### [id number] #### [facility] [address] [place] [phone] [employer] Specialist: Parvin Gray Calcium [Mass/Vol] 9.3 mg/dL Normal 8.6-10.3 [facility] Comment on above: Performed By: #### 4 , 7599 #### [facility] of [address], [address] [place] [address] [employer] Specialist: Toan Lara MD #### [id number] #### [facility] [address] [place] [address] Export [employer] Specialist: Parvin Ordoñez Flati Chloride [Moles/Vol] 105 mmol/L Normal 98-110 [facility] Comment on above: Performed By: #### 4 , 7599 #### [facility] [address], [address] [place] [address] Export Fre[employer] Specialist: Toan Lara MD #### [id number] #### [facility] [address] Export Fre[employer] Specialist: Parvin Felixi CO2 [Moles/Vol] 26 mmol/L Normal 20-32 [facility] Comment on above: Performed By: #### 4 , 7599 #### [facility] [address], [address] [place] [address] Export Fre[employer] Specialist: Toan Lara MD #### [id number] #### [facility] [address] Export Fre[employer] Specialist: Parvin Gray Creatinine [Mass/Vol] 0.84 mg/dL Normal 0.70-1.28 [facility] Comment on above: Performed By: #### 4 , 7599 #### [facility] of [address], [address] [place] [address] [employer] Fre[employer] Specialist: Toan Lara MD #### [id number] #### [facility] [address] [place], [place] [phone] [employer] Fre[employer] Specialist: Parvin Gray GFR/1.73 sq M.predicted among non-blacks MDRD (S/P/Bld) [Vol rate/Area] 93 mL/min/{1.73_m2} Normal > OR = 60 [facility] Comment on above: Performed By: #### 4 96, 7599 #### [facility] [address], [address] [place] [address] Export Fre[employer] Specialist: Toan Lara MD #### [id number] #### [facility] [address] [place] [address] [employer] Specialist: Parvin Felixi Globulin (S) [Mass/Vol] 2.8 g/dL Normal 1.9-3.7 [facility] Comment on above: Performed By: #### 4 , 7599 #### [facility] [address], [address] [place] [address] Export Fre[employer] Specialist: Toan Lara MD #### [id number] #### [facility] [address] Export Fre[employer] Specialist: Parvin Felixi Glucose [Mass/Vol] 129 mg/dL High 65-99 [facility] Comment on above: Result Comment: Fasting reference interval For someone without known diabetes, a glucose value >125 mg/dL indicates that they may have diabetes and this should be confirmed with a follow-up test. Performed By: #### , 7599 #### [facility] [address], [address] [place] [address] [employer] Specialist: Toan Lara MD #### [id number] #### [facility] [address] Export [employer] Specialist: Parvin Felixi Potassium [Moles/Vol] 4.7 mmol/L Normal 3.5-5.3 [facility] Comment on above: Performed By: #### 4 , 7599 #### [facility] [address], [address] [place] [address] Export Fre[employer] Specialist: Toan Lara MD #### [id number] #### [facility] Export Fre[employer] Specialist: Parvin Ordoñez Flati Protein [Mass/Vol] 7.1 g/dL Normal 6.1-8.1 [facility] Comment on above: Performed By: #### 4 , 7599 #### [facility] [address], [address] [place] [address] Export Fre[employer] Specialist: Toan Lara MD #### [id number] #### [facility] [address] [place] [phone] [employer] Specialist: Parvin Gray Sodium [Moles/Vol] 140 mmol/L Normal 135-146 [facility] Comment on above: Performed By: #### 4 , 0 #### [facility] [address], [address] [place] [address] Export Fre[employer] Specialist: Toan Lara MD #### [id number] #### [facility] [address] [place], [place] [phone] [employer] Fre[employer] Specialist: Parvin Gray Urea nitrogen [Mass/Vol] 23 mg/dL Normal 7-25 [facility] Comment on above: Performed By: #### 4 , 7599 #### [facility] [address], [address] [place] [address] Export Fre[employer] Specialist: Toan Lara MD #### [id number] #### [facility] [address] [place], [place] [phone] [employer] Fre[employer] Specialist: Parvin Gray HEMOGLOBIN A1con 09-13-2024 HEMOGLOBIN A1c [...] #### 4 , 0 #### [facility] [address], [address] [place], [place] [phone] [employer] Fre[employer] Specialist: Toan Lara MD #### [id number] #### [facility] [place] [address] [employer] Specialist: Parvin Gray LIPID PANEL, [facility] [place] 09-04 Cholesterol [Mass/Vol] 242 mg/dL High <200 [facility] Comment on above: Order Comment: FASTI NG:YES FASTING: YES Performed By: #### 4 96, 7600 #### [facility] [address], [address] [place] [address] Export Fre[employer] Specialist: Toan Lara MD #### [id number] #### [facility] [address] [place] [phone] [employer] Specialist: Parvin Gray Cholesterol in HDL [Mass/Vol] 40 mg/dL Normal > OR = 40 [facility] Comment on above: Order Comment: FASTI NG:YES FASTING: YES Performed By: #### 4 96, 7600 #### [facility] [address], [address] [place] [address] Export Fre[employer] Specialist: Toan Lara MD #### [id number] #### [facility] [address] [place] [phone] [employer] Specialist: Parvin Gray Cholesterol in LDL [Mass/Vol] 142 [...] LDL-C. Deion TORIBIO et al. MAHENDRA. 2013;310(19): 7207-8735 (http://[email or web address]-nterview.[email or web address]/faq/[email or web address]) Performed By: #### 4 96, 7600 #### [facility] [address] [address], [address] [place] [address] [employer] Fre[employer] Specialist: Toan Lara MD #### [id number] #### [facility] [address] [place] [phone] [employer] Specialist: Parvin Gray Cholesterol.total/Ch olesterol in HDL [Mass ratio] 6.1 {ratio} High <5.0 [facility] Comment on above: Order Comment: FASTI NG:YES FASTING: YES Performed By: #### 4 96, 0 #### [facility] [address], [address] [place] [address] Export Fre[employer] Specialist: Toan Lara MD #### [id number] #### [facility] [address] [place] [phone] [employer] Specialist: Parvin Gray NON HDL CHOLESTEROL 202 mg/dL (calc) High <130 [facility] Comment on above: Order Comment: FASTI NG:YES FASTING: YES Result Comment: For patients with diabetes plus 1 major ASCVD risk factor, treating to a non-HDL-C goal of <100 mg/dL (LDL-C of <70 mg/dL) is considered a therapeutic option. Performed By: #### 4 , 7599 #### [facility] [address], [address] [place] [address] Export Fre[employer] Specialist: Toan Lara MD #### [id number] #### [facility] [address] [place] [phone] [employer] Specialist: Parvin Gray Triglyceride [Mass/Vol] 389 mg/dL High <150 [facility] Comment on above: Order Comment: FASTI NG:YES FASTING: YES Result Comment: If a non-fasting specimen was collected, consider repeat triglyceride testing on a fasting specimen if clinically indicated. Aaliyah et al. J. of Clin. Lipidol. 2015;9:129-169. Performed By: #### 4 , 0 #### [facility] [address], [address] [place] [address] Export Fre[employer] Specialist: Toan Lara MD #### [id number] #### [facility] [address] [place] [phone] [employer] Specialist: Parvin Gray Office Visiton 07-16-2024 Follow-up visit [id number] Juan Miguel Jennings 1950 M Date Provider Department Center 07/16/2024 ANUJA ARMSTRONG [facility] Family History Problem Relation Age of Onset Heart disease Mother Heart disease Father Family Status - Relation Status Age at Mother Father Level of Service:21176 [place] OFFICE/OUTPATIENT ESTABLISHED MOD MDM 30 MIN Normal [facility] 36on 07-09-2024 36 What is his blood pressure running? We can have him try holding amlodipine to see if this will help. We can see how he's feeling at his follow-up appt next week. Normal [facility] CBC W/AUTO DIFFon 06-21-2024 ABS IMMATURE GRAN 0.04 K/uL Normal 0.00-0.06 [facility] Comment on above: Result Comment: UNLE SS OTHERWISE INDICATED, ALL TESTING PERFORMED AT: [facility] [address] [place] [address] ASBESTOS SIDING INSTALLER: JONI NI M.D. CLIA NUMBER [id number] CAP ACCREDITATION AUID [id number] ABS NEUTROPHILS 5.59 K/uL Normal 1.9-8.0 Pathology [...] and informed him of above message from [facility]. He agrees to start isosorbide and amlodipine. Sent to [facility] per his request. He will see Dr. Huddleston in clinic on 07/16/2024 in [place]. Do you need me to send something to [facility] or did you already? Normal [facility] Documentationon 06-08-2024 Documentation [id number] Juan Miguel Jennings 1950 M Date Provider Department Center 06/08/2024 02181-EUURIRON DU HVCANTICOAG ME HeartVAS Family History Problem Relation Age of Onset Heart disease Mother Heart disease Father Family Status - Relation Status Age at Mother Father Reason for Visit and Comments: PharmD Cardiology Consult [Other] Normal [facility] Orders Onlyon 06-02-2024 Orders Only [id number] Juan Miguel Jennings 1950 M Date Provider Department Center 06/02/2024 Tessa-PAUL CLEMONS [facility] Family History Problem Relation Age of Onset Heart disease Mother Heart disease Father Family Status - Relation Status Age at Mother Father Normal [facility] Reminderson 06-01-2024 Reminders Reminders - From: [...] ) Other: PROVIDER RELATED REMINDER:_ ( ) Motor 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 ( ) Call Pharmacy ( ) Call Lab ( ) Other: Special Instructions:_ Comments:_ Results in chart for review Normal [facility] ALL CBC WITH AUTO DIFFon BASOPHILS ABSOLUTE AUTO 0 [facility] Basophils/100 WBC (Bld) 0.4 % 0.2 - 2.0 % [facility] Eosinophils/100 WBC (Bld) 4.2 % 0.9 - 7.0 % [facility] Erythrocyte distribution width (RBC) [Ratio] 13.8 % 11.0 - 15.0 % [facility]emat[facility] (Bld) [Volume fraction] 53 % 42.0 - 54.0 % [facility] Hemoglobin (Bld) [Mass/Vol] 17.9 g/dL 14.0 - 18.0 g/dL [facility] IMMATURE GRANULOCYTES ABS AUTO 0.01 [facility] Immature granulocytes/100 WBC (Bld) 0.1 % 0.0 - 0.5 % [facility] Interpretation and review of laboratory results Abnormal [facility] LYMPHOCYTES ABSOLUTE AUTO 1.1 Low [facility] Lymphocytes/100 WBC (Bld) 15 % Low 20.5 - 60.0 % [facility] MCH (RBC) [Entitic mass] 32.9 pg 25.9 - 34.0 pg [facility] MCHC (RBC) [Mass/Vol] 33.8 g/dL 29.9 - 35.2 g/dL [facility] MCV (RBC) [Entitic vol] 97.4 fL High 80.0 - 94.0 fL [facility] MONOCYTES ABSOLUTE AUTO 0.9 High [facility] Monocytes/100 WBC (Bld) 12.2 % High 1.7 - 12.0 % [facility] NEUTROPHILS ABSOLUTE AUTO 4.8 [facility] Neutrophils/100 WBC (Bld) 68.1 % 43.0 - 75.0 % [facility] Platelet mean volume (Bld) [Entitic vol] 12.5 fL 9.5 - 13.5 fL [facility] are [facility]H EO # 0.3 [facility] PLT 144 Low [facility] TBH RBC 5.44 [facility] WBC 7.1 [facility] Ambulatory Visit Summaryon 1 [...] Urology [address] , [place] [address]- Medications What How Much When Instructions Unchanged [...] PSA History of colon cancer Hx of mcfp use of blood thinners Hyperlipidemia Hypertension Hypogonadism [...] ??? Ea (more content not included)... Normal [facility] Urology Office/Clinic Noteon 05-21-2024 Urology [...] HGB 17.1 (13.2-17.1) 04/23/24 - last inj 12/03/24 - 461 *one day late Decreased Testosterone IM to 400 mg at prior OV due to high hgb, maintained frequency of q4wks. T level increased even after TRT was decreased. Will decrease T leve to 350 mg, maintain frequency of q4wk. Has not been able to donate blood, [place] will not let him. Pt will talk to his oncologist in [place] to see if there is another way he can donate blood. Shares he got CBC drawn on 05/08 at [facility], no results on [facility], called lab and they did not have [...] onc to facilitate blood donation/get permission for [place]. 2. Elevated PSA (R97.20: Elevated prostate specific [...] [facility] [address], [place] [address]- Additional Instructions: f/u pending HGB/CBC and blood [...] History of colon cancer Hx of terminal carman use of blood thinners Hyperlipidemia Hypertension Hypogonadism [...] 1 tab(s), (more content not included)... Normal [facility] Comment on above: Result Comment: Elec tronically Signed By: KERI NOLASCO, Topher Ordoñez\.br\Date and Time Signed: 05/21/24 12:18 EST\.br\Electronically Co-Signed By: Bertha Winter\.br\Date and Time Co-Signed: 05/21/24 12:17 EST ALL LIPID PROFILE (FASTING)o n 05-08-2024 CHOL HDL RATIO 4.5 [facility] Comment on above: 3.3 - 4.4 LOW RISK 4.4 - 7.1 AVERAGE RISK 7.1 - 11.0 MODERATE RISK >11.0 HIGH RISK Cholesterol [Mass/Vol] 189 mg/dL NINF - 200 mg/dL [facility] Cholesterol in HDL [Mass/Vol] 42 mg/dL 40 - 60 mg/dL [facility] Comment on above: > or =60 mg/dl - LOW CARDIOVASCULAR RISK <40 mg/dl - HIGH CARDIOVASCULAR RISK LDL CHOLESTEROL CALCULATED 124.2 mg/dL [facility] Comment on above: <100 mg/dl OPTIMAL 100-129 mg/dl NEAR OR ABOVE OPTIMAL 130-159 mg/dl BORDERLINE HIGH 160-189 mg/dl HIGH >190 mg/dl VERY HIGH Magnesium [Mass/Vol] 22.8 mg/dL [facility] Triglyceride [Mass/Vol] 114 mg/dL NINF - 150 mg/dL [facility] Office Visiton 05-02-2024 Follow-up visit [id number] Juan Miguel Jennings 1950 M Date Provider Department Center 05/02/2024 PAUL JAIMES [facility] Family History Problem Relation Age of Onset Heart disease Mother Heart disease Father Family Status - Relation Status Age at Mother Father Level of Service:17521 [place] OFFICE/OUTPATIENT ESTABLISHED MOD MDM 30 MIN Reason for Visit and Comments: Coronary Artery Disease [187] Hypertension [833433] Normal [facility] Ambulatory Visit Summaryon 1 06-23-2023 Ambulatory Visit Summary Ambulatory Visit Summary JUAN MIGUEL JENNINGS :1950 Visit Date:04/23/2024 Ambulatory Visit Instructions Your Diagnosis Hypogonadism Your Care Team Attending Physician - KERI NOLASCO, Topher Ordoñez Primary Care Physician - DAKOTA NOLASCO, JORDAN Brown This Is Your Medications List [facility] [place] (METOPROLOL TARTRATE 100 MG TAB) aspirin [...] AM EST With: Where: [facility] [address] [facility] [place] [address]- Tuesday 10:45 AM EST With: Topher SAAVEDRA MD Where: [facility] [address] [facility] [place] [address]- Medications What How Much When Instructions Unchanged [...] History of colon cancer Hx of terminal carman use of blood thinners Hyperlipidemia Hypertension Hypogonadism [...] for choosing us for your care. Armando [facility] Ambulatory Visit Summaryon 1 Ambulatory [...] EST With: Where: [facility] [address] [address]- Tuesday 10:45 AM EST With: EKRI NOLASCO, Topher Ordoñez Where: [facility] [address] [address]- Medications What How Much When Instructions Unchanged [...] Unchanged losartan (losartan 100 mg Tab) Unchanged Mis Prescription (METOPROLOL TARTRATE 100 MG TAB) 0 [...] PSA History of colon cancer Hx of mcfp use of blood thinners Hyperlipidemia Hypertension Hypogonadism [...] choosing us for your care. Normal [facility] CBC W/AUTO DIFFon 02-22-2024 ABS [...] on above: Result Comment: [facility] [address] [place] [address] CLIA No. [id number] CAP Accreditation No. [id number] [employer] Boat Captain: Shaunna Dee M.D. Platelets (Bld) [#/Vol] 128 [...] 18 mg/dL Normal 8-23 [facility] POINT OF CARE GLUCOSEon 09-05 Glucose [Mass/Vol] 112 mg/dL Critically high 74-106 [facility] Comment on above: Performed By: #### P OCGLUC #### [facility] [address] [place] [address] Dr. Patria Sanders CBC AUTO DIFFon 09-15-2022 BASO # 0.0 103/ul Normal 0.0-0.1 [facility] Comment on above: Performed By: #### C BC #### [facility] [address] [place] [address] Dr. Patria Sanders Basophils/100 WBC (Bld) 0.5 % Normal 0.2-2.0 [facility] Comment on above: Performed By: #### C BC #### [facility] [address] [place] [address] Dr. Patria Sanders EO # 0.3 103/ul Normal 0.0-0.7 [facility] Comment on above: Performed By: #### C BC #### [facility] [address] [place] [address] Dr. Patria Sanders Eosinophils/100 WBC (Bld) 3.2 % Normal 0.9-7.0 [facility] Comment on above: Performed By: #### C BC #### [facility] [address] [place] [address] Dr. Patria Sanders Erythrocyte distribution width (RBC) [Ratio] 14.5 % Normal 11.0-15.0 [facility] Comment on above: Performed By: #### C BC #### [facility] [address] [place] [address] Dr. Patria Sanders Hematocrit (Bld) [Volume fraction] 49.0 % Normal 42.0-54.0 [facility] Comment on above: Performed By: #### C BC #### [facility] [address] [place] [address] Dr. Patria Sanders Hemoglobin (Bld) [Mass/Vol] 16.7 g/dL Normal 14.0-18.0 [facility] Comment on above: Performed By: #### C BC #### [facility] [address] [place] [address] Dr. Patria Sanders IG # 0.03 10e3/ul Normal 0.00-0.03 [facility] Comment on above: Performed By: #### C BC #### [facility] [address] [place] [address] Dr. Patria Sanders IG % 0.4 % Normal 0.0-0.5 [facility] Comment on above: Performed By: #### C BC #### [facility] [address] [place] [address] Dr. Patria Sanders LYMPH # 1.1 103/ul Critically low 1.2-3.8 [facility] Comment on above: Performed By: #### C BC #### [facility] [address] [place] [address] Dr. Patria Sanders Lymphocytes/100 WBC (Bld) 14.5 % Critically low 20.5-60.0 [facility] Comment on above: Performed By: #### C BC #### [facility] [address] [place] [address] Dr. Patria Sanders MANUAL DIFF REQ NO Normal [facility] Comment on above: Performed By: #### C BC #### [facility] [address] [place] [address] Dr. Patria Sanders MCH (RBC) [Entitic mass] 32.6 pg Normal 25.9-34.0 [facility] Comment on above: Performed By: #### C BC #### [facility] [address] [place] [address] Dr. Patria Sanders MCHC (RBC) [Mass/Vol] 34.1 g/dL Normal 29.9-35.2 [facility] Comment on above: Performed By: #### C BC #### [facility] [address] [place] [address] Dr. Patria Sanders MCV (RBC) [Entitic vol] 95.5 fL Critically high 80.0-94.0 [facility] Comment on above: Performed By: #### C BC #### [facility] [address] [place] [address] Dr. Patria Sanders MONO # 0.8 103/ul Normal 0.3-0.8 [facility] Comment on above: Performed By: #### C BC #### [facility] [address] [place] [address] Dr. Patria Sanders Monocytes/100 WBC (Bld) 9.6 % Normal 1.7-12.0 [facility] Comment on above: Performed By: #### C BC #### [facility] [address] [place] [address] Dr. Patria Sanders NEUT # 5.6 103/ul Normal 1.4-6.5 [facility] Comment on above: Performed By: #### C BC #### [facility] [address] [place] [address] Dr. Patria Sanders Neutrophils/100 WBC (Bld) 71.8 % Normal 43.0-75.0 [facility] Comment on above: Performed By: #### C BC #### [facility] [address] [place] [address] Dr. Patria Sanders Platelet mean volume (Bld) [Entitic vol] 11.6 fL Normal 9.5-13.5 [facility] Comment on above: Performed By: #### C BC #### [facility] [address] [place] [address] Dr. Patria Sanders PLT 154 103/ul Normal 150-450 [facility] Comment on above: Performed By: #### C BC #### [facility] [address] [place] [address] Dr. Patria Sanders RBC 5.13 106/ul Normal 4.70-6.10 [facility] Comment on above: Performed By: #### C BC #### [facility] [address] [place] [address] Dr. Patria Sanders WBC 7.8 103/ul Normal 4.0-11.0 [facility] Comment on above: Performed By: #### C BC #### [facility] [address] [place] [address] Dr. Patria Sanders PROF CHEM 8 (BAS METB)on Anion gap [Moles/Vol] 11.4 mmol/L Normal [facility] Comment on above: Performed By: #### B MP #### [facility] [address] [place] [address] Dr. Patria Sanders Calcium [Mass/Vol] 9.1 mg/dL Normal 8.5-10.1 [facility] Comment on above: Performed By: #### B MP #### [facility] [address] [place] [address] Dr. Patria Sanders Chloride [Moles/Vol] 104 mmol/L Normal 98-107 [facility] Comment on above: Performed By: #### B MP #### [facility] [address] [place] [address] Dr. Patria Sanders CO2 [Moles/Vol] 28.7 mmol/L Normal 21.0-32.0 [facility] Comment on above: Performed By: #### B MP #### [facility] [address] [place] [address] Dr. Patria Sanders Creatinine [Mass/Vol] 0.80 mg/dL Normal 0.70-1.30 [facility] Comment on above: Performed By: #### B MP #### [facility] [address] [place] [address] Dr. Patria Sanders EGFR-AF SINGAPOREAN >60 Normal >=60 [facility] Comment on above: Performed By: #### B MP #### [facility] [address] [address] [address] Patria Sanders EGFR-NON AF SINGAPOREAN >60 Normal >=60 [facility] Comment on above: Performed By: #### B MP #### [facility] [address] [address] [address] Patria Sanders Glucose [Mass/Vol] 101 mg/dL Normal 74-106 [facility] Comment on above: Performed By: #### B MP #### [facility] [address] [address] [address] Patria Sanders Potassium [Moles/Vol] 4.1 mmol/L Normal 3.5-5.1 [facility] Comment on above: Performed By: #### B MP #### [facility] [address] [address] [address] Patria Sanders Sodium [Moles/Vol] 140 mmol/L Normal 136-145 [facility] Comment on above: Performed By: #### B MP #### [facility] [address] [address] [address] Patria Sanders Urea nitrogen [Mass/Vol] 11.0 mg/dL Normal 7.0-18.0 [facility] Comment on above: Performed By: #### B MP #### [facility] [address] [address] [address] Patria Sanders Urea nitrogen/Creatinine [Mass ratio] 13.8 mg/mg Normal [facility] Comment on above: Performed By: #### B MP #### [facility] [address] [address] [address] Patria Sanders PROTIMEon 09-15-2022 INR Coag (PPP) [Relative time] 1.02 {INR} Normal [facility] Comment on above: Performed By: #### P TT, PT #### [facility] [address] [address] [address] Patria Sanders INR GUIDELINES SEE BELOW Normal [facility] Comment on above: Result Comment: SANTO RED INR: 2.0 - 3.0 CONDITIONS NOT LISTED BELOW 2.5 - 3.5 FOR PROSTHETIC HEART VALVE REPLACEMENT 2.5 - 3.5 RECURRENT THROMBOSIS Performed By: #### P TT, PT #### [facility] [address] [place] [address] Dr. Patria Sanders PT Coag (PPP) [Time] 10.8 s Normal 9.0-11.6 [facility] Comment on above: Performed By: #### P TT, PT #### [facility] [address] [place] [address] Dr. Patria Sanders PTTon 09-15-2022 aPTT Coag (Bld) [Time] 32.0 s Normal 22.3-36.2 [facility] Comment on above: Performed By: #### P TT, PT #### [facility] [address] [place] [address] Dr. Patria Sanders Covid-19 PCR (CVDTB)on 01-04 SARS-CoV-2 (COVID-19) RNA NANCY+probe Ql (Unsp spec) Not detected Normal NOT DETECTED [facility] Comment on above: Result Comment: This test is not yet approved or cleared by the [place] FDA. When there are no FDA-approved or cleared tests available, and other criteria are met, FDA can make tests available under an emergency access mechanism called an Emergency Use Authorization (EUA). The EUA for this test is supported by the [place] of Health and Human Service's (HHS's) declaration [...] SARS-CoV-2. Performed By: #### C VDTBH #### [facility] [address] [place] [address] Dr. Patria Sanders Hemoglobin A1Con 09-24-2021 EAG 128.37 Normal [facility] [employer] Comment on above: Performed By: #### A 1C #### [facility] [address] [place], [place] [id number] HbA1c (Bld) [Mass fraction] 6.1 % High 4.0-6.0 [facility] [employer] [facility] Comment on above: Performed By: #### A 1C #### [facility] [address] [place], [place] [id number] Testosteroneon 05-11-2021 TESTOS 314.70 ng/dL Normal 193.00-740.00 [facility] [employer] [facility] Comment on above: Performed By: #### T EST #### [facility] [address] [place], [place] [id number] Progress Noteon 10-12-2017 HIM IP Note OR [employer] Super[employer] Normal [facility] Vital Signs Date Time Vital Sign Value Performing Clinician Facility 09-18-2024 09:24-0400 Body height 198.1 cm Jordan Duncan MD Work Phone: [facility] 09-18-2024 09:24-0400 Body mass index (BMI) [Ratio] 40.1 kg/m2 Jordan Duncan MD Work Phone: [facility] 09-18-2024 09:24-0400 Body weight 157.4 kg Jordan Duncan MD Work Phone: [facility] 09-18-2024 09:24-0400 Diastolic blood pressure 70 mm[Hg] Jordan Duncan MD Work Phone: [facility] 09-18-2024 09:24-0400 Heart rate 63 /min Jordan Duncan MD Work Phone: [facility] 09-18-2024 09:24-0400 SaO2% (BldA) [Mass fraction] 98 % Jordan Duncan MD Work Phone: [facility] 09-18-2024 09:24-0400 Systolic blood pressure 124 mm[Hg] Jordan Duncan MD Work Phone: [facility] 07-25-2024 10:01-0500 Body height 198.1 cm Jordan Duncan MD Work Phone: [facility] 07-25-2024 10:01-0500 Body mass index (BMI) [Ratio] 39.64 kg/m2 Jordan Duncan MD Work Phone: [facility] 07-25-2024 10:01-0500 Body weight 155.58 kg Jordan Duncan MD Work Phone: [facility] 07-25-2024 10:01-0500 Diastolic blood pressure 74 mm[Hg] Jordan Duncan MD Work Phone: [facility] 07-25-2024 10:01-0500 Heart rate 58 /min Jordan Duncan MD Work Phone: [facility] 07-25-2024 10:01-0500 SaO2% (BldA) [Mass fraction] 98 % Jordan Duncan MD Work Phone: [facility] 07-25-2024 10:01-0500 Systolic blood pressure 120 mm[Hg] Jordan Duncan MD Work Phone: [facility] 07-05-2024 13:45-0500 Diastolic blood pressure 72 mm[Hg] Mthz Schedule [facility] 07-05-2024 13:45-0500 Heart rate 77 /min [facility] Schedule [facility] 07-05-2024 13:45-0500 Systolic blood pressure 135 mm[Hg] M[facility] Schedule [facility] 07-05-2024 13:16-0500 Body temperature 97.5 [degF] Mthz Schedule [facility] 07-05-2024 13:16-0500 Respiratory rate 18 /min M[facility] Schedule [facility] 05-21-2024 10:44-0500 Blood Pressure Location Topher SAAVEDRA [facility] 05-21-2024 10:44-0500 Body temperature 98.6 [degF] Topher SAAVEDRA [facility] 05-21-2024 10:44-0500 Diastolic blood pressure 79 mm[Hg] Topher SAAVEDRA [facility] 05-21-2024 10:44-0500 Heart rate 58 /min Topher SAAVEDRA [facility] 05-21-2024 10:44-0500 Respiratory rate 16 /min Topher SAAVEDRA [facility] 05-21-2024 10:44-0500 Systolic blood pressure 133 mm[Hg] Topher SAAVEDRA [facility] 05-15-2024 10:21-0500 Body height 198.1 cm Brody Ibrahim DPM Work Phone: [facility] 05-15-2024 10:21-0500 Body mass index (BMI) [Ratio] 40.45 kg/m2 Brodygarrick Ibrahim DPM Work Phone: [facility] 05-15-2024 10:21-0500 Body weight 158.76 kg Brody Ibrahim DPM Work Phone: [facility] 04-23-2024 10:41-0500 Body height 198.1 cm Brody Ibrahim DPM Work Phone: [facility] 04-23-2024 10:41-0500 Body mass index (BMI) [Ratio] 40.45 kg/m2 Brody Ibrahim DPM Work Phone: [facility] 04-23-2024 10:41-0500 Body weight 158.76 kg Brody Ibrahim DPM Work Phone: [facility] 03-29-2024 12:49-0400 Body height 198.1 cm Brody Ibrahim DPM Work Phone: [facility] 03-29-2024 12:49-0400 Body mass index (BMI) [Ratio] 40.45 kg/m2 Brody Ibrahim DPM Work Phone: [facility] 03-29-2024 12:49-0400 Body weight 158.76 kg Brody Ibrahim DPM Work Phone: [facility] 03-27-2024 14:00-0400 Body height 198.1 cm Jordan Duncan MD Work Phone: [facility] 03-27-2024 14:00-0400 Body mass index (BMI) [Ratio] 40.45 kg/m2 Jordan Duncan MD Work Phone: [facility] 03-27-2024 14:00-0400 Body weight 158.76 kg Jordan Duncan MD Work Phone: [facility] 03-27-2024 14:00-0400 Diastolic blood pressure 76 mm[Hg] Jordan Duncan MD Work Phone: [facility] 03-27-2024 14:00-0400 Heart rate 71 /min Jordan Duncan MD Work Phone: [facility] 03-27-2024 14:00-0400 SaO2% (BldA) [Mass fraction] 97 % Jordan Duncan MD Work Phone: [facility] 03-27-2024 14:00-0400 Systolic blood pressure 128 mm[Hg] Jordan Duncan MD Work Phone: [facility] 03-13-2024 09:41-0400 Body height 198.1 cm Brody Ibrahim DPM Work Phone: [facility] 03-13-2024 09:41-0400 Body mass index (BMI) [Ratio] 40.45 kg/m2 Brody Ibrahim DPM Work Phone: [facility] 03-13-2024 09:41-0400 Body weight 158.76 kg Brody Ibrahim DPM Work Phone: [facility] 12-05-2023 10:38-0400 Blood Pressure Location Topher KERI [facility] 12-05-2023 10:38-0400 Body temperature 98.6 [degF] Topher SAAVEDRA [facility] 12-05-2023 10:38-0400 Diastolic blood pressure 86 mm[Hg] Topher SAAVEDRA [facility] 12-05-2023 10:38-0400 Heart rate 69 /min Topher SAAVEDRA [facility] 12-05-2023 10:38-0400 Respiratory rate 16 /min Topher SAAVEDRA [facility] 12-05-2023 10:38-0400 Systolic blood pressure 136 mm[Hg] Topher SAAVEDRA [facility] 07-19-2023 10:37-0500 Body height 198.1 cm Brody Alexandria DPM Work Phone: [facility] 07-19-2023 10:37-0500 Body mass index (BMI) [Ratio] 39.87 kg/m2 Brody Ibrahim DPM Work Phone: [facility] 07-19-2023 10:37-0500 Body weight 156.49 kg Brody Ibrahim DPM Work Phone: [facility] 06-20-2023 10:33-0500 Blood Pressure Location Topher SAAVEDRA [facility] 06-20-2023 10:33-0500 Diastolic blood pressure 86 mm[Hg] Topher SAAVEDRA [facility] 06-20-2023 10:33-0500 Heart rate 70 /min Topher SAAVEDRA [facility] 06-20-2023 10:33-0500 Respiratory rate 16 /min Topher SAAVEDRA [facility] 06-20-2023 10:33-0500 Systolic blood pressure 139 mm[Hg] Topher SAAVEDRA [facility] 11-05-2022 10:12-0400 Blood Pressure Location Topherpeter SAAVEDRA [facility] 11-05-2022 10:12-0400 Diastolic blood pressure 78 mm[Hg] Topher SAAVEDRA [facility] 11-05-2022 10:12-0400 Heart rate 68 /min Topherpeter SAAVEDRA [facility] 11-05-2022 10:12-0400 Respiratory rate 16 /min Topher SAAVEDRA [facility] 11-05-2022 10:12-0400 Systolic blood pressure 130 mm[Hg] Topher SAAVEDRA [facility] 11-03-2022 14:34-0400 Body temperature 97.5 [degF] Mthz Schedule [facility] 11-03-2022 14:34-0400 Diastolic blood pressure 77 mm[Hg] Mth[facility] Schedule [facility] 11-03-2022 14:34-0400 Heart rate 72 /min [facility] Schedule [facility] 11-03-2022 14:34-0400 Respiratory rate 18 /min M[facility] Schedule [facility] 11-03-2022 14:34-0400 Systolic blood pressure 140 mm[Hg] Mthz Schedule [facility] 06-18-2022 08:55-0500 Blood Pressure Location Topher SAAVEDRA [facility] 06-18-2022 08:55-0500 Diastolic blood pressure 82 mm[Hg] Topher SAAVEDRA [facility] 06-18-2022 08:55-0500 Heart rate 80 /min Topher SAAVEDRA [facility] 06-18-2022 08:55-0500 Respiratory rate 16 /min Topher SAAVEDRA [facility] 06-18-2022 08:55-0500 Systolic blood pressure 132 mm[Hg] Topher SAAVEDRA [facility] 05-17-2022 09:43-0500 Blood Pressure Location Topher SAAVEDRA [facility] 05-17-2022 09:43-0500 Diastolic blood pressure 92 mm[Hg] Topher SAAVEDRA [facility] 05-17-2022 09:43-0500 Heart rate 63 /min Topher SAAVEDRA [facility] 05-17-2022 09:43-0500 Systolic blood pressure 143 mm[Hg] Topher SAAVEDRA [facility] 02-01-2022 09:48-0400 Blood Pressure Location Topher SAAVEDRA [facility] 02-01-2022 09:48-0400 Diastolic blood pressure 66 mm[Hg] Topher SAAVEDRA [facility] 02-01-2022 09:48-0400 Heart rate 84 /min Topher SAAVEDRA [facility] 02-01-2022 09:48-0400 Respiratory rate 16 /min Topher SAAVEDRA [facility] 02-01-2022 09:48-0400 Systolic blood pressure 98 mm[Hg] Topher SAAVEDRA [facility] 01-28-2022 13:48-0400 Diastolic blood pressure 76 mm[Hg] [facility] 01-28-2022 13:48-0400 Heart rate 56 /min [facility] 01-28-2022 13:48-0400 Respiratory rate 18 /min [facility] Schedule [facility] 01-28-2022 13:48-0400 Systolic blood pressure 135 mm[Hg] [facility] Schedule [facility] 01-28-2022 13:25-0400 Body temperature 97.39 [degF] [facility] Schedule [facility] 10-22-2020 12:25-0400 Body temperature 97.81 [degF] [facility] Schedule [employer] Work Phone: 10-22-2020 12:25-0400 Heart rate 67 /min [facility] Schedule [facility] [employer] Work Phone: 07-27-2019 08:03-0500 Body Temperature 96.3 [degF] [facility] [place] 07-27-2019 08:03-0500 BP Diastolic 80 mm[Hg[facility] [place] [facility] [place] 07-27-2019 08:03-0500 BP Systolic 129 mm[Hg] [facility] [place] [facility] [place] 07-27-2019 08:03-0500 Pulse (Heart Rate) 63 /min [facility] Schedule [facility] [place] 07-27-2019 08:03-0500 Respiratory Rate 20 /min [facility] Schedule [facility] [place] 03-13-2019 08:02-0400 Body Temperature 96.69 [degF] [facility] [place] 03-13-2019 08:02-0400 BP Diastolic 83 mm[Hg] [facility] Schedule [facility] [place] [facility] [place] 03-13-2019 08:02-0400 BP Systolic 162 mm[Hg] [facility] Schedule [facility] [place] [facility] [place] 03-13-2019 08:02-0400 Pulse (Heart Rate) 74 /min [facility] Schedule [facility] [place] [place] 03-13-2019 08:02-0400 Respiratory Rate 20 /min [facility] Schedule [facility] [place] 01-12-2019 08:03-0400 Body Temperature 96.91 [degF] [facility] [place] 01-12-2019 08:03-0400 BP Diastolic 87 mm[Hg] [facility] Schedule [facility] [place] [facility] [place] 01-12-2019 08:03-0400 BP Systolic 152 mm[Hg] [facility] Schedule [facility] [place] [facility] [place] 01-12-2019 08:03-0400 Pulse (Heart Rate) 63 /min [facility] Schedule [facility] [place], [place] 01-12-2019 08:03-0400 Respiratory Rate 20 /min [facility] Schedule [facility] [place] Encounters Encounter Date Encounter Type Care Provider Facility Start: 08-09-2025 amb[facility] Start: 02-08-2025 End: 02-08-2025 ambulatory Topher SAAVEDRA Facility:[facility] Start: 02-08-2025 End: 02-08-2025 Patient encounter procedure Topher SAAVEDRA [facility] Start: 01-15-2025 End: 01-15-2025 Adolph Duncan MD Work Phone: [facility] Comment on above: Dyspepsia Start: [...] Start: 01-01-2025 End: 01-01-2025 ambulatory Enedina Hargrove [facility] Work Phone: Start: 01-01-2025 End: 01-01-2025 Departed Referred Enedina Hargrove DPM [facility] Start: 12-28-2024 End: 12-28-2024 Clinisync Result [...] Unsolicited Start: 12-21-2024 End: 12-21-2024 ambulatory RACHEL [facility] Start: 12-21-2024 End: 12-21-2024 Encounter for other preprocedural examination [facility] Start: 12-03-2024 End: 12-03-2024 Telephone encounter [...] long-term current use of insulin ([facility]/HCC); Mixed hyperlipidemia (CMS/[facility]); Adverse reaction to statin medication Start: 09-18-2024 [...] obesity due to excess calories ([facility]); BMI 39.0-39.9,adult; Type 2 diabetes mellitus with diabetic polyneuropathy, without long-term current use of insulin ([facility]/HCC); Type 2 diabetes mellitus with diabetic microalbuminuria, without long-term current use of insulin ([facility]); Type 2 diabetes mellitus with foot ulcer (CODE) ([facility]); Non-pressure chronic ulcer of other part of unspecified foot with unspecified severity ([facility]/HCC); 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); Partial nontraumatic amputation of foot, left ([facility]/HCC); 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 (CMS/[facility]); History of myocardial infarction ([facility]); Mixed hyperlipidemia ([facility]); Adverse reaction to statin medication; Primary open angle glaucoma of both eyes, unspecified glaucoma stage (CMS/HCC) Start: 07-25-2024 End: 07-25-2024 ambulatory JORDAN DUNCAN Not Available Start: 07-16-2024 End: 07-16-2024 ambulatory [facility] Start: 07-05-2024 End: 07-05-2024 ambulatory WILLI Harrison [facility] Start: 07-05-2024 End: 07-05-2024 Subsequent hospital visit by physician [facility] 1 Schedule [facility] Comment on above: Polycythemia (Primar y Dx) Start: 06-18-2024 End: 06-18-2024 Telephone encounter Jordan Duncan MD Work Phone: [facility] Start: 05-22-2024 End: 05-22-2024 Clinisync Result Encounter Generic External Data Provider [facility] External Department Unsolicited Start: 05-22-2024 End: 05-22-2024 Clinisync Result Encounter Generic External Data Provider [facility] External [facility] Unsolicited Start: 05-21-2024 End: 05-21-2024 ambulatory Topher SAAVEDRA Facility:[facility] Start: 05-21-2024 End: 05-21-2024 Patient encounter procedure Topher SAAVEDRA [facility] Start: 05-15-2024 End: 05-15-2024 ambulatory BRODY [...] ty:DEBBIE Siegel Start: 05-02-2024 End: 05-02-2024 ambulatory [facility] Start: 04-23-2024 End: 04-23-2024 Bamboo flowsheet Brody Ibrahim DPM Work Phone: [facility] Start: 04-23-2024 End: 04-23-2024 Bamboo flowsheet Brody Ibrahim DPM Work Phone: [facility] Start: 04-23-2024 End: 04-23-2024 ambulatory BRODY IBRAHIM Not Available Start: 04-23-2024 End: 04-23-2024 Patient encounter procedure [facility] Comment on above: Diabetic polyneuropa thy associated with type 2 diabetes mellitus (CMS/HCC) (Primary Dx); Nontraumatic amputation of foot, left (CMS/HCC); Nontraumatic amputation of foot, right (CMS/HCC) Start: 04-09-2024 End: 04-09-2024 Telephone encounter Brody Ibrahim DPM Work Phone: [facility] Comment on above: Advice Only (orthoti cs) Start: 03-29-2024 End: 03-29-2024 Bamboo flowsheet Brody Ibrahim DPM Work Phone: [facility] Start: 03-29-2024 End: 03-29-2024 Bamboo flowsheet Brody Ibrahim DPM Work Phone: [facility] Start: 03-29-2024 End: 03-29-2024 Postop follow up visit related to original px Brody Ibrahim DPM Work Phone: [facility] Comment on above: Diabetic polyneuropa [...] Start: 03-27-2024 End: 03-27-2024 ambulatory Topher SAAVEDRA Facility:[facility] Start: 03-27-2024 End: 03-27-2024 Patient encounter procedure Topher SAAVEDRA [facility] Start: 03-13-2024 End: 03-13-2024 Bamboo francisco j Ibrahim DPM Work Phone: [facility] Start: 03-13-2024 End: 03-13-2024 Marek marx Brody Ibrahim DPM Work Phone: [facility] Start: 03-13-2024 End: 03-13-2024 Patient encounter procedure Brody Ibrahim DPM Work Phone: [facility] Comment on above: Acquired keratoderma (Primary Dx); Diabetic polyneuropathy associated with type 2 diabetes mellitus (CMS/HCC); Nontraumatic amputation of foot, left (CMS/HCC); Nontraumatic amputation of foot, right ([facility]/HCC) Start: 03-13-2024 End: 03-13-2024 ambulatory BRODY IBRAHIM Not Available Start: 03-01-2024 End: 03-01-2024 ambulatory [facility] Start: 02-27-2024 End: 02-27-2024 ambulatory Topher SAAVEDRA Facility:[facility] Start: 02-27-2024 End: 02-27-2024 Patient encounter procedure Topher SAAVEDRA [facility] Start: 01-31-2024 End: 01-31-2024 Patient encounter procedure Fernanda Solomon [facility] Start: 01-10-2024 End: 01-10-2024 ambulatory BRODY IBRAHIM Not Available Start: 12-06-2023 End: 12-06-2023 ambulatory BRODY IBRAHIM Not Available Start: 12-05-2023 End: 12-05-2023 Patient encounter procedure Topher SAAVEDRA [facility] Start: 11-09-2023 End: 11-09-2023 ambulatory [facility] Start: 11-07-2023 End: 11-07-2023 Patient encounter procedure Topher SAAVEDRA [facility] Start: 10-27-2023 End: 10-27-2023 ambulatory JORDAN DUNCAN Not Available Start: 10-12-2023 End: 10-12-2023 ambulatory JORDAN Brown MAICOLENOC Not Available Start: 10-07-2023 End: 10-07-2023 Patient encounter procedure Topher SAAVEDRA [facility] Start: 09-27-2023 End: 09-27-2023 ambulatory BRODY IBRAHIM Not Available Start: 09-09-2023 End: 09-09-2023 Patient encounter procedure Topher SAAVEDRA [facility] Start: 08-15-2023 End: 08-15-2023 Patient encounter procedure Topher SAAVEDRA [facility] Start: 07-19-2023 Bamboo Dropifiheet Brody Tyler er DPM Work Phone: [facility] Start: 07-19-2023 Bamboo flowsheet Brody dykes DPM Work Phone: [facility] Start: 07-19-2023 End: 07-19-2023 Patient encounter procedure Brody Ibrahim DPM Work Phone: [facility] Comment on above: Dermatophytosis of n ail (Primary Dx); Dystrophic nail; Diabetic polyneuropathy associated with type 2 diabetes mellitus (CMS/HCC); Nontraumatic amputation of foot, right (CMS/HCC); Nontraumatic amputation of foot, left (CMS/HCC); Acquired keratoderma Start: 07-18-2023 End: 07-18-2023 Patient encounter procedure [facility] Start: 06-20-2023 End: 06-20-2023 Patient encounter procedure Topher R KERI [facility] [place] Start: 05-09-2023 End: 05-09-2023 Patient encounter procedure [facility]EDRA [facility] Start: 04-04-2023 End: 04-04-2023 Patient encounter procedure Topher SAAVEDRA [facility] Start: 02-08-2023 End: 02-08-2023 Patient encounter procedure [facility]ORDAN [facility]UNCAN [facility] Start: 01-03-2023 End: 01-03-2023 Patient encounter procedure Topher Smita SAAVEDRA [facility] [place] Start: 12-03-2022 End: 12-03-2022 Patient encounter procedure Topher SAAVEDRA [facility] [place] Start: 11-05-2022 End: 11-05-2022 Patient encounter procedure Topher SAAVEDRA [facility] [employer] Start: 11-03-2022 End: 11-03-2022 Subsequent hospital visit by physician [facility] Med Onc Room 7 Schedule [facility] MED ONC Comment on above: Polycythemia (Primar y Dx) Start: 10-25-2022 End: 10-26-2022 ambulatory ARNOLD PEOPLES Facility:H1 Start: 10-05-2022 End: 10-06-[address] JORDAN DUNCAN . Facility:H1 Start: 10-05-2022 End: 10-05-2022 Patient encounter procedure Topher SAAVEDRA [facility] Start: 09-30-2022 End: 09-30-[address] TOPHER SAAVEDRA . Facility:H1 Start: 09-27-2022 End: 09-28-2022 ambulatory ARNOLD PEOPLES Facility:H1 Start: 09-20-2022 End: 09-21-2022 ambulatory ENEDINA HARGROVE Facility:H1 Start: 09-20-2022 Encounter for preprocedural cardiovascular examination DR TOPHER SAAVEDRA . [facility] Start: 09-20-2022 Encounter for preprocedural laboratory examination DR TOPHER SAAVEDRA . [facility] Start: 09-20-2022 Encounter for preprocedural respiratory examination DR TOPHER SAAVEDRA . [facility] Start: 09-15-2022 End: 09-16-[address] TOPHER SAAVEDRA . Facility:H1 Start: 09-15-2022 End: 09-16-2022 Encounter for preprocedural laboratory examination DR TOPHER SAAVEDRA . Facility:H1 Start: 09-06-2022 End: 09-06-2022 Patient encounter procedure Topher SAAVEDRA [facility] Start: 06-18-2022 End: 06-18-2022 Patient encounter procedure Topher SAAVEDRA [facility] Start: 05-20-2022 End: 05-21-2022 ambulatory ENEDINA HARGROVE Facility:H1 Start: 05-17-2022 End: 05-17-2022 Patient encounter procedure Topher SAAVEDRA [facility] Start: 04-21-2022 End: 04-22-2022 ambulatory [facility] Facility:H1 Start: 04-21-2022 End: 04-21-2022 Patient encounter procedure Mandy Schaefer [facility] [employer] Start: 04-09-2022 End: 04-10-2022 ambulatory [facility] Facility:[facility]1 Start: 03-31-2022 End: 03-31-2022 Patient encounter procedure Mandy Schaefer [facility] [employer] Start: 03-22-2022 End: 03-23-2022 [facility] Facility:H1 Start: 03-03-2022 End: 03-03-2022 Patient encounter procedure Mandy Schaefer [facility] Start: 02-01-2022 End: 02-01-2022 Patient encounter procedure Topher SAAVEDRA [facility] Start: 01-28-2022 End: 01-28-2022 [facility] MED ONC Comment on above: Polycythemia (Primar y Dx) Start: 01-18-2022 End: 01-18-[address] JORDAN DUNCAN . Facility:[facility]1 Start: 01-06-2022 End: 01-07-2022 ambulatory [facility] Facility:[facility]1 Start: 12-21-2021 End: 12-21-2021 Patient encounter procedure Topher SAAVEDRA [facility] Start: 11-23-2021 End: 11-23-2021 Patient encounter procedure Topher SAAVEDRA [facility] Start: 10-26-2021 End: 10-26-2021 Patient encounter procedure Topher SAAVEDRA [facility] Start: 09-28-2021 End: 09-28-2021 Patient encounter procedure Topher R SAAVEDRA [facility] Start: 08-31-2021 End: 08-31-2021 Patient encounter procedure Topher R KERI [facility] Start: 10-22-2020 End: 10-22-2020 Subsequent hospital visit by physician [facility] Med [facility]c Room 9 [facility] Comment on above: Polycythemia (Primar y Dx) Start: 07-27-2019 End: 07-27-2019 Subsequent hospital visit by physician [facility] Med Onc Room 9 [facility] Comment on above: Polycythemia (Primar y Dx) Start: 03-13-2019 End: 03-13-2019 Subsequent hospital visit by physician [facility] Med Onc Room 9 [facility] Comment on above: Polycythemia (Primar y Dx) Start: 01-12-2019 End: 01-12-2019 Subsequent hospital visit by physician [facility] Med [facility]c Room 9 [facility] Start: 02-16-2018 End: 02-17-2018 Patient encounter DEFAULT PHYSICIAN Facility:[facility] Procedures Date Procedure Procedure [...] (FASTING) Generic External Data Provider Start: 12-26-2024 [facility] LIVER PANEL Generi c External Data Provider Start: 09-18-2024 Creatinine other source Jordan Duncan MD Work Phone: Start: 05-22-2024 ALL CBC WITH AUTO DIFF Generic External Data Provider Start: 05-08-2024 ALL LIPID PROFILE (FASTING) Generic External Data Provider Start: 09-30-2022 Circumcision Topher JENSEN Start: 12-17-2020 Colonoscopy Brody Young her DPM Work Phone: Start: 05-23-2019 foot surgery Topher JENSEN Start: 05-13-2014 History of placement of stent for coronary artery disease S/P JORY - LCX & RCA ([id number]. kabour) [facility] Schedule BACK SURGERY Topher SAAVEDRA Placement of stent Topher W ANA ROSA RECTAL CANCER SURGERY Agustin k KERI RIGHT VEIN REMOVED F ROM LEG Topher SAAVEDRA Plan of Treatment Date Care Activity Detail Author Start: 12-17-2030 Screening for malignant neoplasm of colon [facility] Start: 09-29-2025 Glaucoma screening Diabetes: Retinopathy Screening [facility] Start: 09-18-2025 Urine screening for protein Diabetes: Urine Protein Screening [facility] Start: 07-25-2025 Medicare Annual Wellness (AWV) Medicare Annual Wellness (AWV) [facility] Start: 02-21-2025 GFR test (Diabetes, CKD 3-4, OR last GFR 15-59) GFR test (Diabetes, CKD 3-4, OR last GFR 15-59) [facility] Start: 02-04-2025 Influenza vaccination Influenza Vaccine (#1) [facility] Start: 12-12-2024 Hemoglobin A1c measurement Diabetes: Hemoglobin A1C [facility] Start: 10-26-2024 End: 10-26-2024 Patient encounter procedure 10/26/2024 1:00 PM EDT [facility]ment [facility] [address] [place], [place] [id number] ph[facility]botomy [facility] Comment on above: phlebotomy Start: 10-17-2024 End: 10-17-2024 Patient encounter procedure 10/17/2024 1:00 PM EDT Office Visit [facility] Part of [address] [address] Newton Stevenson MD [address] [place] [address] F/U polycythemia, anal cancer [facility] Part of [facility] Comment on above: F/U polycythemia, anal cancer Start: 10-04-2024 Urine screening for protein Diabetes: Urine Protein Screening [facility] Start: 09-18-2024 End: 09-18-2024 Patient encounter procedure [facility] FM 100 Comment on above: Essential hypertension [...] Essential hypertension (CMS/HCC) Expected: 08/25/2024, Expires: 03/27/2025 [facility] Work Phone: Comment on above: Expected: 08/25/2024, Expires: Start: 08-25-2024 End: 03-27-2025 Hemoglobin A1c/Hemoglobin.total in Blood Hemoglobin A1c Lab Routine Type 2 diabetes mellitus with diabetic polyneuropathy, without long-term current use of insulin (CMS/HCC) Expected: 08/25/2024, Expires: 03/27/2025 [facility] Comment on above: Expected: 08/25/2024, Expires: Start: 08-25-2024 End: 03-27-2025 Lipid 1996 panel - Serum or Plasma Lipid panel Lab Routine Mixed hyperlipidemia (CMS/HCC) Expected: 08/25/2024, Expires: 03/27/2025 [facility] Comment on above: Expected: 08/25/2024, Expires: Start: 07-25-2024 End: 07-25-2024 Patient encounter procedure 07/25/2024 11:00 AM EST Office Visit [facility] [address] [place] [phone] Jordan Duncan MD [address] [facility] [address] [place] [address] Encounter for Medicare annual wellness exam; Advance directive in chart; Encounter for screening for other disorder; Screening for alcohol problem; Morbid (severe) obesity due to excess calories ([facility]); Body mass index (BMI) 40.0-44.9, adult ([facility]) [facility] Comment on above: Encounter for Medicare annual wellness e xam; Advance directive in chart; Encounter for screening for other disorder; Screening for alcohol problem; Morbid (severe) obesity due to excess calories ([facility]); Body mass index (BMI) 40.0-44.9, adult ([facility]) Start: 06-21-2024 Hemoglobin A1c measurement Diabetes: Hemoglobin A1C [facility] Start: 05-17-2024 Medicare Annual Wellness (AWV) Medicare Annual Wellness (AWV) [facility] Start: 05-15-2024 End: 05-15-2024 Patient encounter procedure 05/15/2024 10:15 AM EST Office Visit [facility] [address] [place] [address] Brody Ibrahim DPM [address] [place] [address] [facility] Start: 04-23-2024 End: 04-23-2024 Patient encounter procedure 04/23/2024 11:00 AM EST Office Visit [facility] [address] [place] [address] Brody Ibrahim DPM [address] [place] [address] [facility] Start: 04-09-2024 End: 04-09-2024 Patient encounter procedure 04/09/2024 9:30 AM EST Office Visit [facility] [address] [address] Jordan Duncan MD [address] [place] [address] (Fax) [facility] Start: 03-29-2024 End: 03-29-2024 Patient encounter procedure 03/29/2024 1:00 PM EDT Office Visit [facility] [address] [facility] [place] [phone] Brody Ibrahim DPM [address] [place] [address] Arrived [facility] Comment on above: Arrived Start: 03-27-2024 End: 03-27-2024 Patient encounter procedure 03/27/2024 2:00 PM EDT Office Visit [facility] [address] [address] Jordan Duncan MD [address] [place] [address] (Fax) Type 2 diabetes mellitus with diabetic [...] procedure 03/13/2024 9:45 AM EDT Office Visit [facility] [address] [place] [phone] Brody Ibrahim DPM [address] [place], [place] [phone] Arrived [facility] Comment on above: Arrived Start: 02-05-2024 COVID-19 Vaccine () COVID-19 Vaccine () [facility] Start: 02-05-2024 Influenza vaccination Influenza Vaccine (#1) [facility] Start: 01-05-2024 Hemoglobin A1c measurement Diabetes: Hemoglobin A1C [facility] Start: 11-26-2023 Glaucoma screening Diabetes: Retinopathy Screening [facility] Start: 10-29-2023 GFR test (Diabetes, CKD 3-4, OR last GFR 15-59) GFR test (Diabetes, CKD 3-4, OR last GFR 15-59) [facility] Start: 10-26-2023 End: 10-26-2023 Patient encounter procedure 10/26/2023 Office Visit Oncology ChemoNewton Villalba MD [address] [place] [address] [facility] Part of [facility] Start: 10-12-2023 End: 10-12-2023 Patient encounter procedure 10/12/2023 9:30 AM EDT Office Visit [facility] [address] [place] [address] Jordan Duncan MD [address] [place] [address] [facility] Start: 09-27-2023 End: 09-27-2023 Patient encounter procedure 09/27/2023 11:00 AM EDT Procedure Visit [facility] [address] [place] [phone] Brody Ibrahim DPM [address] [place] [address] [facility] Start: 07-14-2023 Hemoglobin A1c measurement Diabetes: Hemoglobin A1C [facility] Start: 05-02-2023 Annual Wellness Visit (Medicare) Annual Wellness Visit (Medicare) [facility] Start: 10-20-2022 End: 10-20-2022 Patient encounter procedure 10/20/2022 Office Visit Oncology Newton Stevenson MD [address] [place] [address] [facility] Part of [facility] Start: 09-24-2022 Hemoglobin A1c measurement A1C test (Diabetic or Prediabetic) [facility] Start: 02-04-2022 Influenza vaccination Flu vaccine (#1) [facility] Start: 11-11-2021 Urine screening for protein [facility] Start: 10-21-2021 End: 10-21-2021 Patient encounter procedure 10/21/2021 Office Visit Oncology Newton Stevenson MD [address] [facility] [place] [address] [facility] Part of [facility] Start: 10-16-2021 COVID-19 Vaccine (4 - Booster for Pfizer series) COVID-19 Vaccine (4 - Booster for Pfizer series) [facility] Start: 10-14-2021 Lipid panel Lipids [facility] Start: 10-24-2019 End: 10-24-2019 Office Visit [facility] Start: 07-31-2019 End: 07-31-2019 Appointment 07/31/2019 [facility]ment [facility] Start: 04-30-2019 End: 04-30-2019 Appointment 04/30/2019 Appointment [facility] Start: 02-04-2019 Influenza vaccination Flu vaccine (#1) [facility] [place] Start: 11-26-2018 Annual Wellness Visit (AWV) Annual Wellness Visit (AWV) [facility] Start: 08-17-2017 Creatinine measurement [facility] Work Phone: Start: 08-17-2017 Creatinine monitoring Creatinine monitoring [place], [place] Start: 08-17-2017 Potassium monitoring Potassium monitoring [place], [place] Start: 08-04-2017 A1C test (Diabetic or Prediabetic) A1C test (Diabetic or Prediabetic) [place] Start: 08-04-2017 Hemoglobin A1c measurement A1C test (Diabetic or Prediabetic) [facility] Start: 02-10-2017 Abdominal aortic aneurysm screening AAA screen [facility] Start: 02-10-2017 Pneumococcal 65+ years Vaccine (1 of 2 - PCV13) Pneumococcal 65+ years Vaccine (1 of 2 - PCV13) [place], [place] Start: 01-29-2017 Shingles Vaccine (2 of 3) Shingles Vaccine (2 of 3) [facility] Start: 02-10-2015 Annual Wellness Visit (AWV) Annual Wellness Visit (AWV) [place], [place] Start: 2012 Respiratory Syncytial Virus (RSV) or age 60 yrs+ (1 - Risk 60-74 years 1-dose series) Respiratory Syncytial Virus (RSV) or age 60 yrs+ (1 - Risk 60-74 years 1-dose series) [facility] Start: 02-10-2002 Colon cancer screen colonoscopy Colon cancer screen colonoscopy [place], [place] Start: 02-10-2002 Screening for malignant neoplasm of colon Colon cancer screen colonoscopy [facility] Work Phone: Start: 02-10-2002 Shingles Vaccine (1 of 2) Shingles Vaccine (1 of 2) [place], [place] Start: 02-10-1997 Screening for malignant neoplasm of colon [facility] Start: 02-10-1971 DTaP/Tdap/Td vaccine (1 - Tdap) DTaP/Tdap/Td vaccine (1 - Tdap) [facility] Start: 02-10-1971 Hepatitis B vaccine (1 of 3 - Risk 3-dose series) Hepatitis B vaccine (1 of 3 - Risk 3-dose series) [place] Start: 02-10-1970 Diabetic microalbuminuria test Diabetic microalbuminuria test [place] Start: 02-10-1970 Diabetic retinal exam Diabetic retinal exam [facility] Start: 02-10-1970 Glaucoma screening Diabetic retinal exam [facility] [employer] Start: 02-10-1970 Hepatitis C screening Hepatitis C screen [facility] [employer] Start: 02-10-1970 Urine screening for protein Diabetic Alb to Cr ratio (uACR) test [facility] [employer] Start: 1964 Depression Screen Depression Screen [facility] [employer] Start: 02-10-1963 DTaP/Tdap/Td vaccine (1 - Tdap) DTaP/Tdap/Td vaccine (1 - Tdap) [place] Start: 02-10-1962 [object Object] Diabetic foot exam [place] Start: 02-10-1962 Diabetic foot examination Diabetic foot exam [facility] [employer] [facility] Start: 02-10-1962 Diabetic retinal exam Diabetic retinal exam [place] Start: 02-10-1962 Lipid panel [facility] Start: 02-10-1962 Lipid screen Lipid screen [place], [place] Start: 1952 Annual Wellness Visit (AWV) Annual Wellness Visit (AWV) [facility] Start: 1952 Hepatitis C screen Hepatitis C screen [place], [place] Start: 1952 Hepatitis C screening Hepatitis C screen [facility] [employer] Phone: Start: 1952 Screening for malignant neoplasm of colon [facility] End: 07-05-2024 Phlebotomy therapeutic Phlebotomy therapeutic Procedures Routine One Time for 1 Occurrences starting 07/05/2024 until 07/05/2024 [facility] Work Phone: Comment on above: One Time for 1 Occurrences starting 06/08 until 07/05/2024 Immunizations Immunization Date Immunization Notes Care Provider Shania durham 01-31-2025 RSV vaccine preF3, recombinant Topher SAAVEDRA [facility] 01-31-2025 tetanus toxoid, redu edin diphtheria toxoid, and acellular pertussis vaccine, adsorbed Topher SAAVEDRA [facility] 01-31-2025 zoster vaccine recombinant Topher SAAVEDRA [facility] 03-28-2024 influenza, seasonal, injectable Brody Ibrahim DPM Work Phone: [facility] 03-28-2024 Seasonal trivalent influenza vaccine, adjuvanted, preservative free Brody Ibrahim DPM Work Phone: [facility] 03-28-2024 influenza virus vacc ine, unspecified formulation Generic Provider [facility] 02-28-2023 influenza virus vacc ine, unspecified formulation Topher SAAVEDRA [facility] 02-28-2023 Influenza, Seasonal, Quadrivalent, Adjuvanted Brody Ibrahim DPM Work Phone: [facility] 04-16-2022 influenza virus vacc ine, unspecified formulation Topher SAAVEDRA [facility] 04-16-2022 Influenza, Seasonal, Quadrivalent, Adjuvanted Brody Ibrahim DPM Work Phone: [facility] 03-23-2022 Moderna Bivalent Simmons ster Vaccination Brody Ibrahim DPM Work Phone: [facility] 03-23-2022 Moderna SARS-CoV-2 50mcg/0.5mL Booster Brody Ibrahim DPM Work Phone: [facility] 03-23-[address] 12 Years And Older Brody Ibrahim DPM Work Phone: [facility] 03-23-2022 SARS-CoV-2 (COVID-19 ) [id number] Topher SAAVEDRA [facility] 06-18-2021 SARS-CoV-2 (COVID-19 ) mRNA BNT-162b2 vax Topher SAAVEDRA [facility] 05-06-2021 influenza virus vacc ine, unspecified formulation Topher SAAVEDRA [facility] 05-06-2021 Influenza, Seasonal, Quadrivalent, Adjuvanted Brody Ibrahim DPM Work Phone: [facility] 05-06-2021 SARS-CoV-2 (COVID-19 ) Ad26 vaccine, recombinant Topher SAAVEDRA [facility] 08-28-2020 SARS-CoV-2 (COVID-19 ) mRNA BNT-162b2 vax Topher SAAVEDRA [facility] 08-28-2020 SARS-CoV-2, Unspecified Garry Ibrahim DPM Work Phone: [facility] 08-27-2020 Pfizer Purple Cap SARS-CoV-2 Vaccination Brody Ibrahim DPM Work Phone: [facility] 08-08-2020 SARS-CoV-2 (COVID-19 ) mRNA BNT-162b2 vax Topher SAAVEDRA [facility] Comment on above: Result Comment: 2022: [id number] 08-08-2020 SARS-CoV-2, Unspecified Garry Ibrahim DPM Work Phone: [facility] 08-07-2020 Pfizer Purple Cap SARS-CoV-2 Vaccination Brody Ibrahim DPM Work Phone: [facility] 08-04-2020 SARS-CoV-2 (COVID-19 ) Ad26 vaccine, recombinant Topher SAAVEDRA [facility] 03-22-2020 influenza virus vacc ine, unspecified formulation Topher SAAVEDRA [facility] 03-22-2020 Influenza, Seasonal, Quadrivalent, Adjuvanted Brody Rusher DPM Work Phone: [facility] 03-06-2019 pneumococcal conjuga te vaccine, 13 valent Topher SAAVEDRA [facility] 03-05-2019 influenza virus vacc ine, unspecified formulation Topher SAAVEDRA [facility] 03-05-2019 influenza, high dose seasonal, preservative-free Brody Rusher DPM Work Phone: [facility] 03-05-2019 pneumococcal polysaccharide vaccine, 23 valent Topher SAAVEDRA [facility] 03-04-2019 Influenza, High-dose Seasonal, Quadrivalent, Preservative Free Brody Rusher DPM Work Phone: [facility] 03-04-2019 pneumococcal polysaccharide vaccine, 23 valent Brody Rusher DPM Work Phone: [facility] 03-03-2018 influenza virus vacc ine, unspecified formulation Topher SAAVEDRA [facility] 03-03-2018 influenza, high dose seasonal, preservative-free Brody Rusher DPM Work Phone: [facility] 03-03-2018 pneumococcal conjuga te vaccine, 13 valent Topher SAAVEDRA [facility] 03-03-2018 pneumococcal polysaccharide vaccine, 23 valent Brody Rusher DPM Work Phone: [facility] 03-02-2018 pneumococcal conjuga te vaccine, 13 valent Brody Rusher DPM Work Phone: [facility] 04-06-2017 influenza virus vacc ine, unspecified formulation Topher SAAVEDRA [facility] 04-06-2017 influenza, injectabl e, quadrivalent, preservative free Brody Rusher DPM Work Phone: [facility] 12-04-2016 pneumococcal polysaccharide vaccine, 23 valent Topher SAAVEDRA [facility] 12-04-2016 zoster vaccine, live Topher SAAVEDRA [facility] 03-06-2016 Influenza Vaccine, unspecified formulation Mthz Schedule [facility] 03-06-2016 influenza virus vacc ine, H5N1, A/[place] (national stockpile) Brody Ibrahim DPM Work Phone: [facility] 03-06-2016 influenza virus vacc ine, unspecified formulation Brody Ibrahim DPM Work Phone: [facility] 03-06-2016 Influenza, High-dose Seasonal, Quadrivalent, Preservative Free Brody Ibrahim DPM Work Phone: [facility] 03-06-2016 influenza, unspecifi ed formulation Topher SAAVEDRA [facility] 01-23-2016 influenza virus vacc ine, unspecified formulation Topher SAAVEDRA [facility] 01-23-2016 influenza, injectabl e, quadrivalent, preservative free Brody Ibrahim DPM Work Phone: [facility] 06-06-2015 pneumococcal polysaccharide vaccine, 23 valent Topher SAAVEDRA [facility] 03-23-2014 influenza virus vacc ine, unspecified formulation Topher SAAVEDRA [facility] 03-23-2014 influenza, seasonal, injectable Brody Ibrahim DPM Work Phone: [facility] 04-06-2013 influenza virus vacc ine, unspecified formulation Topher SAAVEDRA [facility] 04-06-2013 influenza, seasonal, injectable Brody Ibrahim DPM Work Phone: [facility] 04-06-2013 zoster vaccine, live Topher SAAVEDRA [facility] 04-05-2013 zoster vaccine, live Brody Ibrahim DPM Work Phone: [facility] 04-21-2009 novel influenza-H1N1 -09, preservative-free, injectable Brody Ibrahim DPM Work Phone: [facility] Payers Date Payer Category Payer Self-pay 2022 Private Health Insurance [id number] 2022 Unknown 2017 Medicare [id number] 2017 Medicare xxxxxxxxxxx [id number] 1959 Medicare [id number] 1959 Private Health Insurance [id number] 1952 Unknown [id number] 2.16.84 0.1.299747.3.579.2.593 1952 Unknown [id number] 2.16.84 0.1.954000.3.579.2.593 1952 Unknown [id number] 2.16.84 0.1.126017.3.579.2.593 1952 Unknown [id number] 2.16.84 0.1.512222.3.579.2.593 1952 Unknown [id number] 2.16.84 0.1.580270.3.579.2.593 1952 Unknown [id number] 2.16.84 0.1.750118.3.579.2.593 1952 Unknown [id number] 2.16.84 0.1.839331.3.579.2.593 1952 Unknown [id number] 2.16.84 0.1.165658.3.579.2.593 1952 Unknown [id number] 2.16.84 0.1.021643.3.579.2.593 1952 Unknown [id number] 2.16.84 0.1.423828.3.579.2.593 1952 Unknown [id number] 2.16.84 0.1.481894.3.579.2.593 1952 Unknown [id number] 2.16.84 0.1.287843.3.579.2.593 1952 Unknown [id number] 2.16.8 40.1.174734.3.579.2.173 1952 Unknown [id number] 2.16.8 40.1.411887.3.579.2.173 1952 Unknown [id number] 2.16.8 40.1.219598.3.579.2.173 1952 Unknown [id number] 2.16.84 0.1.342394.3.579.2.1259 1952 Unknown [id number] 2.16.84 0.1.863764.3.579.2.1259 1952 Unknown [id number] 2.16.84 0.1.487295.3.579.2.1259 1952 Unknown [id number] 2.16.84 0.1.194309.3.579.2.1259 1952 Unknown [id number] 2.16.84 0.1.351758.3.579.2.1259 1952 Unknown [id number] 2.16.84 0.1.634209.3.579.2.1258 1952 Unknown [id number] 2.16.84 0.1.569847.3.579.2.1258 1952 Unknown [id number] 2.16.84 0.1.608510.3.579.2.1258 1952 Unknown [id number] 2.16.84 0.1.437690.3.579.2.1258 1952 Unknown [id number] 2.16.84 0.1.143243.3.579.2.1258 1952 Unknown [id number] 2.16.84 0.1.785635.3.579.2.1258 1952 Unknown [id number] 2.16.84 0.1.318426.3.579.2.1258 1952 Unknown [id number] 2.16.8 40.1.396893.3.579.2.727 1952 Unknown [id number] 2.16.8 40.1.840387.3.579.2.727 1952 Unknown [id number] 2.16.8 40.1.993127.3.579.2.727 1952 Unknown [id number] 2.16.8 40.1.855012.3.579.2.727 1952 Unknown [id number] 2.16.8 40.1.130673.3.579.2.727 1952 Unknown [id number] 2.16.8 40.1.006657.3.579.2.727 1952 Unknown [id number] 2.16.8 40.1.832669.3.579.2.727 Medicare [id number] Unknown [id number] 2.16.8 40.1.653255.3.579.2.531 Social History Date Type Detail Facility Start: 10-18-2018 End: 02-08-2025 Tobacco [facility] Start: 08-[facility]-1979 End: 06-06-2012 History of tobacco use [facility] Start: 10-18-2018 End: 09-18-2024 Cigarettes smoked current (pack per day) - Reported [facility] Start: 10-18-2018 End: 09-18-2024 Alcohol intake [facility] Start: 01-23-2014 End: 11-02-2023 Tobacco [facility] Start: 1950 Sex Assigned At Not on file M [place], [place] Start: 10-18-2018 End: 11-02-2023 Alcohol intake Current non-drinker of alcohol (finding) [place], [place] Start: 10-22-2020 End: 12-06-2023 Tobacco use and exposure Never used [facility] Start: 01-18-2022 End: 01-28-2022 Exposure to SARS-CoV-2 (event) Not sure [facility] Start: 08-31-1979 End: 06-06-2012 History of tobacco use Cigarette Smoker KITTY QUIROZ [facility] Work Phone: Start: 05-17-2023 End: 01-01-2025 [...] gender (finding) [facility] Tobacco smoking stat [facility] Unknown if ever smoked [facility] Work Phone: Start: 12-06-2018 Sex Male (finding) [facility] Start: 1950 Sex Assigned At Male F [facility] Tobacco smoking status Never [facility] Sexual Orientation [facility] Functional Status Date Assessment Result Facility 09-18-2024 Patient Health Quest ionnaire 2 item (PHQ-2) [Reported] [facility] 05-21-2024 Functional Status N/A [facility] 12-05-2023 Functional Status N/A [facility] 06-20-2023 Functional Status N/A [facility] 11-05-2022 Functional Status N/A [facility] 06-18-2022 Functional Status N/A [facility] 05-17-2022 Functional Status N/A [facility] 02-01-2022 Functional Status N/A [facility] Clinical Notes 10-22-2020 to 02-08-2025 Telephone Encounter [...] urethra. Follow these instructions at home: Take bmqd-kbc-rtolgis and prescription medicines only as told by [...] provider. Document Revised: 12/09/2021 Document Reviewed: 12/09/2021 [email or web address] Patient Education 2023 Graze. Follow Up Care 01/14/2025 08:10:35 With:KERI NOLASCO, Topher Ordoñez, URL Address: [address] [place] [phone] When: Unknown Comments:6 mos [facility] 02-08-2025 Note Patient Education Urology Benign Prostatic [...] Follow these instructions at home: ??? Take wtaw-ovt-jfidqkd and prescription medicines only as told by [...] do not get (more content not included)... [facility] 12-21-2024 Note Patient is here for surgery clearance. Patient is having right 5th hammer toe removed. Patient states he feels pretty good, patient is able to every day chores. Patient denies cardiac symptoms at this time [facility] 12-21-2024 Note SUBJECTIVE Reason for Visit: Juan Miguel Jennings is a 74 y.o. year old male patient being seen for surgical clearance. HPI: Juan Miguel Jennings is a 74 y.o. year old male with significant medical history of CAD status post MS with stenting procedures in the past (2006, [...] normal; visually estimate (more content not included)... [facility] 12-03-2024 Telephone encounter Note Bret called requesting a refill on his cyclobenzaprine (Flexeril) 10 MG to [facility] in [place] [facility] 12-03-2024 Miscellaneous Notes Bret called requesting a refill on his cyclobenzaprine (Flexeril) [facility] MG to [facility] in [place] documented in this encounter [facility] 10-18-2024 Telephone encounter Note Reviewed in prescription sent. [facility] 10-18-2024 Miscellaneous Notes Reviewed in prescription [...] for these to go to [facility] in [place]. documented in this encounter [facility] 10-18-2024 Telephone encounter Note Bret called [...] for these to go to [facility] in [place]. T [facility] 09-18-2024 History of Present illness Narrative [...] long-term current use of insulin ([facility]) As above - POCT microalbumin manually resulted 4. Type 2 diabetes mellitus with diabetic polyneuropathy, without long-term current use of insulin ([facility]) Chronic problem, stable, he does [...] 90 tablet; Refill: 1 5. Mixed hyperlipidemia (CMS/[facility]) Chronic problem that is currently untreated. He understands he would be better served by treatment. They talked about some of the other injectables he is working with another physician on that. 6. Adverse reaction to statin medication Exclusionary measure for HEDIS. 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 manager/television host Hearing Screening: Yes, concerned about hearing loss Cognitive Screening Self Assessment: No concerns rasied by family members, friends, or caretakers Three Word Registration: Zakiya Decker, Finger Clock Drawing: Normal Clock - 2 Three Word Recall: 2/3 words correct - 2 Total Score (0-5 Points): 4 Advance Care Planning Do you have a living will?: Yes Do you have a medical power of insurance defense attorney?: Yes Who is your medical power of insurance defense attorney?: Mary Yancey- Daughter Objective : BP [...] obesity due to excess calories ([facility]) Patient has lost some weight but with his comorbid conditions he still meets the criteria for morbid obesity. 6. BMI 39.0-39.9,adult Defines the morbid obesity 7. Type 2 diabetes mellitus with diabetic polyneuropathy, without long-term current use of insulin ([facility]) Chronic problem, stable, monitored longitudinally. 8. Type 2 diabetes mellitus with diabetic microalbuminuria, without long-term current use of insulin ([facility]) Chronic problem, stable, monitored longitudinally. 9. Type 2 diabetes mellitus with foot ulcer (CODE) ([facility]) Chronic problem, stable, monitored longitudinally. [...] longitudinally.Primarily managed by Podiatry 13. 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 ([facility]/HCC) Chronic problem, stable, monitored longitudinally. Comanaged with Cardiology 14. History of myocardial infarction (CMS/[facility]) Chronic problem, stable, monitored longitudinally.Comanaged with Cardiology 15. Mixed hyperlipidemia (CMS/HCC) Chronic problem, stable, monitored longitudinally.Comanaged with Cardiology 16. Adverse reaction to statin medication Diagnosis for exclusion from the HEDIS measures for statin use. 17. Primary open angle glaucoma of both eyes, unspecified glaucoma stage (CMS/HCC) Managed by Ophthalmology Electronically signed by Jordan Duncan MD on July 25, 2024 documented in this encounter [facility] 07-16-2024 Note [place] Cardiology - [facility] Subjective Juan Miguel Jennings is [...] colon cancer Testicular hypofunction Hx of terminal carman use of blood thinners Internal derangement of [...] man with prior history of CAD, s/p MS and stenting procedures in the past. He [...] s (more content not included)... [facility] 07-05-2024 History of Present illness Narrative [...] Denies any dizziness. documented in this encounter [facility] 06-18-2024 Telephone encounter Note Prescription sent [facility] 06-18-2024 Miscellaneous Notes Prescription sent Bret left a message requesting a refill on his Famotidine to [facility] in [place]. documented in this encounter [facility] 06-18-2024 Telephone encounter Note Bret left a message requesting a refill on his Famotidine to [facility] in [place]. [facility] 06-08-2024 Note Contacted patient to discuss lipids management. Reviewed mechanism of action, side effects, and administration of Repatha with patient; pt agreeable to start. Will send RX to assess costs. Of note, pt may qualify for patient assistance [employer]. Will fill out paperwork and send to Cardiology to assist in obtaining signature and income documents. Iron Bess PharmD Cardiology Outpatient Clinical Pharmacist 06/11/24 [facility] 06-08-2024 Note Application for [employer] filled out for patient. Requires patient signature. Will notify Cardiology manufacturing support engineer to coordinate signature by patient. Application uploaded to media. Patient will come to Cardiology clinic to sign. Iron Bess PharmD Cardiology Outpatient Clinical Pharmacist 06/14/24 [facility] 06-08-2024 Note [facility] - Lipids Provider: Dr. Huddleston Department: Cardiology Juan Miguel Jennings is a 74 y.o. male with PMH of CAD s/p MS and stents, HTN, HLD, MO w/ CPAP, [...] Cardiology Outpatient Clinical Pharmacist 06/11/24 [facility] 05-21-2024 Hospital Discharge instructions Patient Education [...] your health care provider. General instructions Take oxjr-lti-comkqsy and prescription medicines only as told by [...] provider. Document Revised: 02/09/2021 Document Reviewed: 02/09/2021 [email or web address] Patient Education 2023 Graze. Follow Up Care 02/27/2024 09:12:26 With:KERI NOLASCO, Topher Ordoñez, URL Address: [facility] [address] , [place] [address]- When: Unknown [facility] 05-21-2024 Evaluation + Plan note Diagnostic Tests PendingTestosterone Level Total 05/21/24CBC w/ Auto Diff 05/21/24 [facility] 05-21-2024 Note Patient Education Obstetrics [...] health care provider. General instructions ??? Take cbbs-faf-rdapkct and prescription medicines only as told by [...] drink, and whe (more content not included)... [facility] 05-15-2024 History of Present illness Narrative Images from the original note were not included. Subjective Patient ID: Juan Miguel Jennings is a 74 y.o. male who presents for Diabetic shoe check (Juan Miguel Jennings is a 74 y.o. male who presents diabetic shoe check. PCP: Dr. Dakota YARBROUGH 03/27/24, A1C: 6.4 (5/1), BS: 132 SS: 14.). HPI Three-week initial [...] and oriented. Pleasant disposition. Presents wearing current DrBitna Gruber therapeutic footwear with custom orthoses. Vascular: [...] corrected. Thank you for your understanding. Brody Irbahim DPM documented in this encounter [facility] 05-15-2024 Instructions Brody Ibrahim DPM - 05/15/2024 10:15 AM EST As noted documented in this encounter [facility] 05-02-2024 Note Cardiovascular Medic [facility] SUBJECTIVE Chief Complaint Patient presents with Coronary Artery Disease Hypertension Juan Miguel Jennings is a 74 y.o. male here for follow-up. HPI PMHx: CAD s/p MS and stenting, HTN, HLD, MO and wears [...] medication Anal cancer (CMS/HCC) Amputation of foot ([facility]/HCC) Atherosclerosis of coronary artery without angina [...] foot with unspecified severity ([facility]/HCC) Nocturia Morbid obesity ([facility]) Microalbuminuria Old myocardial infarction Phimosis Glaucoma Status post total left knee replacement Obstructive sleep apnea syndrome S/P drug eluting coronary stent placement S/P cardiac cath Polyneuropathy due to type 2 diabetes mellitus ([facility]/HCC) Polycythemia Urinary urgency Urinary frequency Testosterone deficiency Foot callus Osteoarthritis of knee Presence of both artificial knee joints Type 2 diabetes mellitus with neurologic complication ([facility]/HCC) Past Medical History: Diagnosis Date Coronary artery disease Diabetes mellitus ([facility]/HCC) Hyperlipidemia Hypertension Sleep apnea Family History [...] Exa (more content not included)... [facility] 05-02-2024 Note Patient here for 1 [...] systems reviewed and are negative. [facility] 04-23-2024 History of Present illness Narrative Images from the original note were not included. Subjective Patient ID: Juan Miguel Jennings is a 74 y.o. 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 [...] Brody Ibrahim DPM documented in this encounter [facility] 04-23-2024 Instructions Brody Ibrahim DPM - 04/23/2024 11:00 AM EST Instructions as noted documented in this encounter [facility] 04-09-2024 Telephone encounter Note Custom orthotics arrived senthil Gruber [facility] 04-09-2024 Miscellaneous Notes Custom orthotics arrived senthil Gruber documented in this encounter [facility] 03-29-2024 History of Present illness Narrative [...] 03/2017 lesions on bottom of both feet, [facility] OTHER SURGICAL HISTORY 4 stents KaGeraldo barajas [...] Measurements obtained in the weight-bearing position utilizing [employer] device. Foam impressions obtained simulated weight-bearing. Patient [...] Brody Ibrahim DPM documented in this encounter [facility] 03-29-2024 Instructions Brody Ibrahim DPM - 03/29/2024 1:00 PM EDT As noted documented in this encounter [facility] 03-27-2024 History of Present illness Narrative [...] with Hgb A1C. Also this is a cuxm-zd-ksjr visit for consideration for diabetic shoes. Patient [...] polyneuropathy, without long-term current use of insulin ([facility]) (Primary) Chronic problem, stable, to goal. Patient has multiple podiatric issues. The forms from Podiatry were reviewed. Patient's feet were examined. I concur with the forms from Podiatry. Diabetic shoes are medically indicated. I certify that I had a fhsx-rj-evst encounter with this patient at todays office visit. Due to this medical condition the patient requires DME. I certify that based on my findings The DME ordered is medically necessary for this patient. This has been discussed with the patient and/or their insurance account representative and mutually agreed upon. See the [...] 6. Partial nontraumatic amputation of foot, left ([facility]) Comorbid condition currently being managed by Podiatry 7. Venous stasis dermatitis of both lower extremities Chronic problem, stable. Does not appear to be progressing significantly. Discussed the importance of keeping the area moisturized. 8. Type 2 diabetes mellitus with diabetic microalbuminuria, without long-term current use of insulin ([facility]) Chronic problem, stable, to goal. [...] cardiovascular disease. 10. Essential hypertension ([facility]) In prescribing a renewal to [...] - Comprehensive metabolic panel 11. Mixed hyperlipidemia ([facility]) - Lipid panel; Future - Lipid panel 12. Adverse reaction to statin medication Diagnosis for exclusion for HEDIS measures for both diabetes with statin and mixed dyslipidemia with statin. 13. Former smoker Continue nonsmoking 14. Morbid obesity (CMS/HCC) Continue lifestyle changes as able documented in this encounter [facility] 03-13-2024 History of Present illness Narrative [...] Brody Ibrahim DPM documented in this encounter [facility] 03-13-2024 Instructions Brody Ibrahim DPM - 03/13/2024 9:45 AM EDT As noted documented in this encounter [facility] 12-05-2023 Hospital Discharge instructions Patient Education [...] therapy. Follow these instructions at home: Take xuus-itf-dhhpmao and prescription medicines only as told by [...] provider. Document Revised: 01/22/2021 Document Reviewed: 01/22/2021 [email or web address] Patient Education 2022 [employer]ze. Follow Up Care 12/05/2023 07:35:26 With:Topher SAAVEDRA MD, URL Address: [facility] [address] [place] [address]- [phone] When: Unknown [facility] 11-07-2023 Hospital Discharge instructions Follow Up Care 11/07/2023 08:41:09 With:Topher SAAVEDRA MD, URL Address: [facility] [address] [place] [address]- [phone] When: Unknown [facility] 07-19-2023 History of Present illness Narrative Images [...] May 2023; effectively healed following treatment at [facility]. Currently relates no bleeding or drainage Review [...] 03/2017 lesions on bottom of both feet, [facility] OTHER SURGICAL HISTORY 4 stents KaGeraldo barajas [...] right foot; effectively managed at [facility] wound care center. Care plan: conservative and [...] Brody Ibrahim DPM documented in this encounter [facility] 07-19-2023 Instructions Brody Ibrahim DPM - 07/19/2023 10:30 AM EST As noted documented in this encounter [facility] 06-20-2023 Hospital Discharge instructions Patient Education [...] therapy. Follow these instructions at home: Take fbon-ykp-xiyqmoo and prescription medicines only as told by [...] provider. Document Revised: 01/22/2021 Document Reviewed: 01/22/2021 [email or web address] Patient Education 2022 Graze. Follow Up Care 02/08/2023 12:23:35 With:KERI NOLASCO, Topher Ordoñez, URL Address: [facility] [address], [place] [phone] When: Unknown Comments:6 mos w/ PSA and T level (pt to also get PSA now) [facility] [place] 11-05-2022 Hospital Discharge instructions [...] urethra. Follow these instructions at home: Take xale-lou-odjipen and prescription medicines only as told by [...] provider. Document Revised: 12/09/2021 Document Reviewed: 12/09/2021 [email or web address] Patient Education 2022 Graze. Follow Up Care 05/17/2022 10:46:35 With:KERI NOLASCO, Topher Ordoñez, URL Address: [facility] [address] , [place] [address]- When: Unknown [facility] 11-03-2022 History of Present illness Narrative [...] visit documented in this encounter KITTY QUIROZ [employer] Work Phone: 09-15-2022 Note EXAM: XR CHEST [...] urethra. Follow these instructions at home: Take goyy-afg-mrstykk and prescription medicines only as told by [...] 05/23/2006 Document Revised: 04/17/2019 Document Reviewed: 06/27/2017 [email or web address] Patient Education 2019 [employer]ze. Follow Up Care 06/14/2022 09:33:13 With:KERI NOLASCO, Topher Ordoñez, RACIEL Address: [address] [place] [address] [place] [phone]- When: Unknown [facility] [place] 05-17-2022 Hospital Discharge instructions Patient Education [...] urethra. Follow these instructions at home: Take uqcq-skp-qpumanu and prescription medicines only as told by [...] 05/23/2006 Document Revised: 04/17/2019 Document Reviewed: 06/27/2017 [email or web address] Patient Education 2020 [email or web address] Follow Up Care 04/21/2022 09:42:50 With:KERI NOLASCO, Topher Ordoñez, CORNELIAL Address: [facility] [address] , [place] [address]- When: Unknown [facility] 03-23-2022 Note PROCEDURE: XR FOOT R [...] urethra. Follow these instructions at home: Take arqn-sgh-yowklxv and prescription medicines only as told by [...] 05/23/2006 Document Revised: 04/17/2019 Document Reviewed: 06/27/2017 [email or web address] Patient Education 2020 [employer]ze. Follow Up Care 08/03/2021 15:20:11 With:KERI NOLASCO, Topher Ordoñez, URL Address: [address] [place] [address]- When: Unknown [facility] 10-22-2020 History of Present illness Narrative [...] ambulating without complaints [facility] Work Phone: Evaluation + Plan note Future Appointments Appointment Date:09/28/2021 09:00:00 AM Scheduled Provider: Location:[facility] Appointment Type:URO Nurse Visit Appointment Date:02/01/2022 09:45:00 AM Scheduled Provider:Topher SAAVEDRA MD Location[place] Appointment Type:URO Office Visit [facility] Evaluation + Plan note Future Appointments Appointment Date:10/26/2021 09:00:00 AM Scheduled Provider: Location:[facility] Appointment Type:URO Nurse Visit Appointment Date:02/01/2022 09:45:00 AM Scheduled Provider:Topher SAAVEDRA MD Location:[facility] Appointment Type:URO Office Visit [facility] Evaluation + Plan note Future Appointments Appointment Date:11/23/2021 09:00:00 AM Scheduled Provider: Location:[facility] Appointment Type:URO Nurse Visit Appointment Date:02/01/2022 09:45:00 AM Scheduled Provider:Topher SAAVEDRA MD Location:[facility] Appointment Type:URO Office Visit [facility] Evaluation + Plan note Future Appointments Appointment Date:12/21/2021 09:00:00 AM Scheduled Provider: Location:[facility] Appointment Type:URO Nurse Visit Appointment Date:02/01/2022 09:45:00 AM Scheduled Provider:Topher SAAVEDRA MD Location:[facility] Appointment Type:URO Office Visit [facility] Evaluation + Plan note Future Appointments Appointment Date:02/01/2022 09:45:00 AM Scheduled Provider:Topher SAAVEDRA MD Location:[facility] Appointment Type:URO Office Visit Diagnostic Tests PendingTestosterone Level Total 12/21/21 [facility] Evaluation + Plan note Future Appointments Appointment Date:03/01/2022 09:30:00 AM Scheduled Provider: Location:[facility] Appointment Type:URO Nurse Visit Diagnostic Tests PendingTestosterone Level Total 04/06/22PSA Total 03/06/22 [facility] Evaluation + Plan note Future Appointments Appointment Date:03/31/2022 08:15:00 AM Scheduled Provider: Location:[facility] Appointment Type:URO Nurse Visit [facility] Evaluation + Plan note Future Appointments Appointment Date:04/21/2022 09:15:00 AM Scheduled Provider: Location:[facility] Appointment Type:URO Nurse Visit [facility] Evaluation + Plan note Future Appointments Appointment Date:05/19/2022 08:00:00 AM Scheduled Provider:Mandy Schaefer MD Location:[facility] Appointment Type:URO Office Visit Diagnostic Tests PendingPSA Total 04/16/22Testosterone Level Total 04/16/22 [facility] Evaluation + Plan note Future Appointments Appointment Date:06/14/2022 09:00:00 AM Scheduled Provider: Location:[facility] Appointment Type:URO Nurse Visit Appointment Date:11/15/2022 08:45:00 AM Scheduled Provider:Topher SAAVEDRA MD Location:[facility] Appointment Type:URO Office Visit Diagnostic Tests PendingPSA Total 05/17/22Testosterone Level Total 05/17/22 [facility] Evaluation + Plan note Future Appointments Appointment Date:09/06/2022 09:00:00 AM Scheduled Provider: Location:[facility] Appointment Type:URO Nurse Visit Appointment Date:11/15/2022 08:45:00 AM Scheduled Provider:Topher SAAVEDRA MD Location:[facility] Appointment Type:URO Office Visit [facility] Evaluation + Plan note Future Appointments Appointment Date:10/05/2022 09:00:00 AM Scheduled Provider: Location:[facility] Appointment Type:URO Nurse Visit Appointment Date:10/29/2022 08:45:00 AM Scheduled Provider:Topher SAAVEDRA MD Location:[facility] Appointment Type:URO Office Visit Appointment Date:11/05/2022 09:45:00 AM Scheduled Provider:Topher SAAVEDRA MD Location:[facility] Appointment Type:URO Office Visit [facility] Evaluation + Plan note Future Appointments Appointment Date:11/05/2022 09:45:00 AM Scheduled Provider:Topher SAAVEDRA MD Location:[facility] Appointment Type:URO Office Visit [facility] Evaluation + Plan note Future Appointments Appointment Date:12/03/2022 09:15:00 AM Scheduled Provider: Location:[facility] Appointment Type:URO Nurse Visit Diagnostic Tests PendingTestosterone Level Total 11/05/22PSA Total 11/05/22 [facility] Evaluation + Plan note Future Appointments Appointment Date:01/03/2023 08:15:00 AM Scheduled Provider: Location:[facility] Appointment Type:URO Nurse Visit [facility] Evaluation + Plan note Future Appointments Appointment Date:01/31/2023 08:45:00 AM Scheduled Provider: Location:[facility] Appointment Type:URO Nurse Visit [facility] Evaluation + Plan note Future Appointments Appointment Date:03/07/2023 08:45:00 AM Scheduled Provider: Location:[facility] Appointment Type:URO Nurse Visit Appointment Date:04/04/2023 08:45:00 AM Scheduled Provider: Location:[facility] Appointment Type:URO Nurse Visit Appointment Date:05/02/2023 08:45:00 AM Scheduled Provider: Location:[facility] Appointment Type:URO Nurse Visit Appointment Date:05/27/2023 09:45:00 AM Scheduled Provider:Topher SAAVEDRA MD Location:[facility] Appointment Type:URO Office Visit [facility] Evaluation + Plan note Future Appointments Appointment Date:05/02/2023 08:45:00 AM Scheduled Provider: Location:[facility] Appointment Type:URO Nurse Visit Appointment Date:06/20/2023 10:30:00 AM Scheduled Provider:Topher SAAVEDRA MD Location:[facility] Appointment Type:URO Office Visit [facility] Evaluation + Plan note Future Appointments Appointment Date:06/20/2023 10:30:00 AM Scheduled Provider:Topher SAAVEDRA MD Location:[facility] Appointment Type:URO Office Visit Diagnostic Tests PendingTestosterone Level Total 05/09/23 [facility] Evaluation + Plan note Future Appointments Appointment Date:07/18/2023 09:30:00 AM Scheduled Provider: Location:[facility] Appointment Type:URO Nurse Visit Diagnostic Tests PendingPSA Total 06/20/23Testosterone Level Total 06/20/23 [facility] Evaluation + Plan note Future Appointments Appointment Date:08/15/2023 10:00:00 AM Scheduled Provider: Location:[facility] Appointment Type:URO Nurse Visit [facility] Evaluation + Plan note Future Appointments Appointment Date:09/09/2023 08:30:00 AM Scheduled Provider: Location:[facility] Appointment Type:URO Nurse Visit [facility] Evaluation + Plan note Future Appointments Appointment Date:10/07/2023 08:30:00 AM Scheduled Provider: Location:[facility] Appointment Type:URO Nurse Visit [facility] Evaluation + Plan note Future Appointments Appointment Date:11/07/2023 09:00:00 AM Scheduled Provider: Location:[facility] Appointment Type:URO Nurse Visit [facility] Evaluation + Plan note Future Appointments Appointment Date:12/05/2023 10:45:00 AM Scheduled Provider:Topher SAAVEDRA MD Location: Appointment Type:URO Office Visit [facility] Evaluation + Plan note Future Appointments Appointment Date:01/02/2024 09:00:00 AM Scheduled Provider: Location:[facility] Appointment Type:URO Nurse Visit Diagnostic Tests PendingTestosterone Level Total 12/05/23emoglobin 12/05/23 [facility] Evaluation + Plan note Future Appointments Appointment Date:01/02/2024 09:00:00 AM Scheduled Provider: Location:[facility] Appointment Type:URO Nurse Visit [facility] Evaluation + Plan note Future Appointments Appointment Date:02/27/2024 09:00:00 AM Scheduled Provider: Location:[facility] Appointment Type:URO Nurse Visit [facility] [employer] Evaluation + Plan note Future Appointments Appointment Date:03/27/2024 09:00:00 AM Scheduled Provider: Location:[facility] Appointment Type:URO Nurse Visit Appointment Date:04/23/2024 09:30:00 AM Scheduled Provider: Location:[facility] Appointment Type:URO Nurse Visit Appointment Date:05/21/2024 10:45:00 AM Scheduled Provider:Topher SAAVEDRA MD Location:[facility] Appointment Type:URO Office Visit [facility] [employer] Evaluation + Plan note Future Appointments Appointment Date:04/23/2024 09:30:00 AM Scheduled Provider: Location:[facility] Appointment Type:URO Nurse Visit Appointment Date:05/21/2024 10:45:00 AM Scheduled Provider:Topher SAAVEDRA MD Location:[facility] Appointment Type:URO Office Visit [facility] [employer] Evaluation + Plan note Future Appointments Appointment Date:05/08/2024 09:00:00 AM Scheduled Provider: Location:[facility] Appointment Type:URO Nurse Visit Appointment Date:05/21/2024 10:45:00 AM Scheduled Provider:Topher SAAVEDRA MD Location:[facility] Appointment Type:URO Office Visit [facility] [employer] Evaluation + Plan note Future Appointments Appointment Date:08/09/2025 09:30:00 AM Scheduled Provider:Topher SAAVDERA MD Location:[facility] Appointment Type:URO Office Visit [facility] [employer] Evaluation note Diagnosis Polycythemia- Primary Polycythemia vera documented in this encounter [facility] [employer] Phone: evaluation note* Diagnosis Polycythemia- Primary Polycythemia vera documented in this encounter [facility] Phone: evaluation note* Diagnosis Dermatophytosis of nail- Primary Dystrophic nail Other specified disease of nail Diabetic polyneuropathy associated with type 2 diabetes mellitus (CMS/HCC) Nontraumatic amputation of foot, right ([facility]/HCC) Nontraumatic amputation of foot, left ([facility]/HCC) Acquired keratoderma documented in this encounter [facility] HealthcareEvaluation note* Diagnosis Acquired keratoderma- Primary Diabetic polyneuropathy associated with type 2 diabetes mellitus (CMS/HCC) Nontraumatic amputation of foot, left ([facility]/HCC) Nontraumatic amputation of foot, right ([facility]/HCC) documented in this encounter [facility] HealthcareEvaluation note* Diagnosis Type 2 diabetes mellitus with diabetic polyneuropathy, without long-term current use of insulin ([facility]/HCC)- Primary Acquired hallux malleus of left foot Acquired hammer toes of both feet Foot callus Corns and callosities Partial nontraumatic amputation of right foot ([facility]/HCC) Partial nontraumatic amputation of foot, left ([facility]/HCC) Venous stasis dermatitis of both lower extremities Type 2 diabetes mellitus with diabetic microalbuminuria, without long-term current use of insulin ([facility]) Microalbuminuria Proteinuria Essential hypertension ([facility]/HCC) Unspecified essential hypertension Mixed hyperlipidemia ([facility]/HCC) Mixed hyperlipidemia Adverse reaction to statin medication Former smoker Personal history of tobacco use, presenting hazards to health Morbid obesity ([facility]) Morbid obesity documented in this encounter [facility] HealthcareEvaluation note* Diagnosis Diabetic polyneuropathy associated with type 2 diabetes mellitus (CMS/HCC)- Primary Nontraumatic amputation of foot, left (CMS/HCC) Nontraumatic amputation of foot, right ([facility]/HCC) documented in this encounter [facility] HealthcareEvaluation note* Diagnosis Diabetic polyneuropathy associated with type 2 diabetes mellitus (CMS/HCC)- Primary Nontraumatic amputation of foot, left (CMS/HCC) Nontraumatic amputation of foot, right ([facility]/HCC) documented in this encounter [facility] HealthcareEvaluation note* Diagnosis Dyspepsia Dyspepsia and other specified disorders of function of stomach documented in this encounter [facility] HealthcareEvaluation note* Diagnosis Polycythemia- Primary Polycythemia vera documented in this encounter [facility] Health[facility]* Diagnosis Encounter for Medicare annual wellness exam- Primary Advance directive in chart Encounter for screening for other disorder Screening for alcohol problem Screening for alcoholism Morbid (severe) obesity due to excess calories ([facility]) BMI 39.0-39.9,adult Type 2 diabetes mellitus with diabetic polyneuropathy, without long-term current use of insulin ([facility]) Type 2 diabetes mellitus with diabetic microalbuminuria, without long-term current use of insulin ([facility]) Type 2 diabetes mellitus with foot ulcer (CODE) ([facility]) Non-pressure chronic ulcer of other part of unspecified foot with unspecified severity ([facility]) Partial nontraumatic amputation of right foot ([facility]) Partial nontraumatic amputation of foot, left ([facility]) 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 ([facility]) History of myocardial infarction ([facility]) Mixed hyperlipidemia ([facility]) Mixed hyperlipidemia Adverse reaction to statin medication Primary open angle glaucoma of both eyes, unspecified glaucoma stage ([facility]) documented in this encounter [facility] HealthcareEvaluation note* Diagnosis Dyspepsia Dyspepsia and other specified disorders of function of stomach Essential hypertension ([facility]) Unspecified essential hypertension Microalbuminuria Proteinuria Mixed hyperlipidemia ([facility]) Mixed hyperlipidemia Type 2 diabetes mellitus with diabetic microalbuminuria, without long-term current use of insulin ([facility]) Type 2 diabetes mellitus with diabetic polyneuropathy, without long-term current use of insulin ([facility]) documented in this encounter [facility] HealthcareEvaluation note* Diagnosis Essential hypertension ([facility])- Primary Unspecified essential hypertension Microalbuminuria Proteinuria Type 2 diabetes mellitus with diabetic microalbuminuria, without long-term current use of insulin ([facility]) Type 2 diabetes mellitus with diabetic polyneuropathy, without long-term current use of insulin ([facility]) Mixed hyperlipidemia ([facility]) Mixed hyperlipidemia Adverse reaction to statin medication documented in this encounter [facility] HealthcareEvaluation note* Diagnosis Lumbar paraspinal muscle spasm Other symptoms referable to back Dyspepsia Dyspepsia and other specified disorders of function of stomach Type 2 diabetes mellitus with diabetic polyneuropathy, without long-term current use of insulin ([facility]) documented in this encounter [facility] HealthcareEvaluation note* Diagnosis Lumbar paraspinal muscle spasm Other symptoms referable to back documented [facility] noteNo assessment information [facility] [employer] Work Phone: Evaluation note* Diagnosis Dyspepsia Dyspepsia and other specified disorders of function of stomach [facility] Narrative No data available for this section [facility] Hospital Discharge instructions No data available for this section [facility] progress note No data available for this section [facility] reason for referral (narrative)No reason for referral information availableTr[facility] [employer] Work Phone: Summary Purpose Family History No [...] FoundDocuments on File Type Date Recorded Patient Scow Captain Expl anation Advance Directives and Livin g Will Advance Directives and Livin g Will 08/31/2013 9:46 AM Power of Manager Inventory Management Power of Manager Inventory Management 08/31/2013 9:46 AM Latest Code Status on File Code Status Date Activated Date Inactivated Comments Full Code 08/06/2016 9:06 AM 08/09/2016 5:53 PM Full Code 08/04/2016 9:28 PM 08/06/2016 9:06 AM Full Code 05/15/2015 12:42 PM 05/19/2015 6:52 PM Full Code 05/12/2015 11:22 AM 05/15/2015 12:42 PM Full Code 05/13/2014 2:36 PM 05/13/2014 9:20 PM Documents on File Type Date Recorded Patient Scow Captain Expl anation ACP-Advance Directive ACP-Power of Manager Inventory Management ACP-Advance Directive 08/31/2013 9:46 AM ACP-Power of Manager Inventory Management 08/31/2013 9:46 AM Documents on File Type Date Recorded Patient Scow Captain Expl anation ACP-Advance Directive 08/31/2013 9:46 AM ACP-Power of Manager Inventory Management 08/31/2013 9:46 AM Latest Code Status on [...] Documents on File Type Date Recorded Patient Scow Captain Expl anation Advance Directives and Living Will 11/20/2019 2018-05-09 Living Wi ll Advance Directives and Living Will 11/20/2019 2018-05-09 Power Of Manager Inventory Management Documents on File Type Date Recorded Patient Scow Captain Expl anation ACP-Power of Manager Inventory Management 08/31/2013 9:46 AM ACP-Advance Directive 08/31/2013 9:46 [...] section and content) DATE CREATED AUTHOR 11/24/2017 [facility] DATE CREATED AUTHOR AUTHOR'S ORGANIZ ATION 03/15/[address] [facility] DATE CREATED AUTHOR AUTHOR'S ORGANIZ ATION 09/26/2021 [facility] dical Specialist DATE CREATED AUTHOR AUTHOR'S ORGANIZ ATION 11/13/2022 [facility] DATE CREATED AUTHOR AUTHOR'S ORGANIZ ATION 07/07/2024 [facility] DATE CREATED AUTHOR AUTHOR'S ORGANIZ ATION 09/14/2024 [facility] DATE CREATED AUTHOR AUTHOR'S ORGANIZ ATION 09/19/2024 [facility] dical Specialists EPIC DATE CREATED AUTHOR AUTHOR'S ORGANIZ ATION 01/08/2025 [facility] DATE CREATED AUTHOR AUTHOR'S ORGANIZ ATION 01/11/2025 [facility] DATE CREATED AUTHOR AUTHOR'S ORGANIZ ATION 02/10/2025 [facility] DATE CREATED AUTHOR AUTHOR'S ORGANIZ ATION 02/16/2025 Pathology Gabriel welch [facility] Care Team (unrecognized sect ion and content) Curriculum Assistant Principal Relationship Specialty Start Date End Date Jordan Duncan MD PCP - General 07/25/19 Curriculum Assistant Principal Relationship Specialty Start Date End Date Jordan Duncan MD [address] [place] [address] PCP - General Family Medicine 10/25/22 Mitch Mello MD [address] [place] [address] Referring Physician Cardiology 05/17/23 Jr. Anuja Henson DO [address] [address] Referring Physician Orthopaedic Surgery 05/17/23 Brody Ibrahim DPM [address] [place] [address] Referring Physician Podiatry 05/17/23 Curriculum Assistant Principal Relationship Specialty Start Date End Date Jordan Duncan MD [address] [phone] PCP - General Family Medicine 10/25/22 Mitch Mello MD [address] [place] [address] Referring Physician Cardiology 05/17/23 Jr. Anuja Henson DO [address] [address] Referring Physician Orthopaedic Surgery 05/17/23 Brody Ibrahim DPM [address] [place] [address] Referring Physician Podiatry 05/17/23 Curriculum Assistant Principal Relationship Specialty Start Date End Date Jordan Duncan MD [address] [place] [address] (Fax) PCP - General Family Medicine 10/25/22 Jordan Duncan MD [address] [place] [address] PCP - ACO Reach 08/05/23 Mitch Mello MD [address] [place] [address] Referring Physician Cardiology 05/17/23 Jr. Anuja Henson DO [address] [place] [id number] Referring Physician Orthopaedic Surgery 05/17/23 Brody Ibrahim DPM [address] [place] [address] Referring Physician Podiatry 05/17/23 Curriculum Assistant Principal Relationship Specialty Start Date End Date Jordan Duncan MD [address] [place] [address] (Fax) PCP - General Family Medicine 10/25/22 Jordan Duncan MD [address] [place] [address] (Fax) PCP - ACO Reach 08/05/23 Mitch Mello MD [address] [place] [address] Referring Physician Cardiology 05/17/23 Jr. Anuja Henson DO [address] [facility] [address] [place] [address] Referring Physician Orthopaedic Surgery 05/17/23 Brody Ibrahim DPM [address] [place] [address] Referring Physician Podiatry 05/17/23 Curriculum Assistant Principal Relationship Specialty Start Date End Date Jordan Duncan MD [address] [place] [address] (Fax) PCP - General Family Medicine 10/25/22 Jordan Duncan MD [address] [phone] (Fax) PCP - ACO Reach 08/05/23 Mitch Mello MD [address] [place] [phone] Referring Physician Cardiology 05/17/23 Jr. Anuja Henson DO [address] [address] Referring Physician Orthopaedic Surgery 05/17/23 Brody Ibrahim DPM [address] [place] [address] Referring Physician Podiatry 05/17/23 Curriculum Assistant Principal Relationship Specialty Start Date End Date Jordan Duncan MD [address] [place] [address] (Fax) PCP - General Family Medicine 10/25/22 Jordan Duncan MD [address] [place] [address] PCP - ACO Reach 08/05/23 Mitch Mello MD [address] [place], [place] [phone] Referring Physician Cardiology 05/17/23 Jr. Anuja Henson DO [address] [address] Referring Physician Orthopaedic Surgery 05/17/23 Brody Ibrahim DPM [address] [place] [address] Referring Physician Podiatry 05/17/23 Curriculum Assistant Principal Relationship Specialty Start Date End Date Jordan Duncan MD [address] [place] [address] (Fax) PCP - General Family Medicine 10/25/22 Jordan Duncan MD [address] [place] [address] (Fax) PCP - ACO Reach 08/05/23 Mitch Mello MD [address] [place] [address] Referring Physician Cardiology 05/17/23 Jr. Anuja Henson DO [address] [address] Referring Physician Orthopaedic Surgery 05/17/23 Brody Ibrahim DPM [address] [facility] [place] [address] Referring Physician Podiatry 05/17/23 Curriculum Assistant Principal Relationship Specialty Start Date End Date Jordan Duncan MD [address] [place] [address] (Fax) PCP - General Family Medicine 10/25/22 Jordan Duncan MD [address] [place] [address] (Fax) PCP - ACO Reach 08/05/23 Mitch Mello MD [address] [place] [address] Referring Physician Cardiology 05/17/23 Jr. Anuja Henson DO [address] [address] Referring Physician Orthopaedic Surgery 05/17/23 Brody Ibrahim DPM [address] [place] [address] Referring Physician Podiatry 05/17/23 Curriculum Assistant Principal Relationship Specialty Start Date End Date Jordan Duncan MD [address] [place] [address] (Fax) PCP - General Family Medicine 10/25/22 Jordan Duncan MD [address] [place] [phone] (Fax) PCP - ACO Reach 08/05/23 Mitch Mello MD [address] [place] [address] Referring Physician Cardiology 05/17/23 Jr. Anuja Henson DO [address] [place] [address] Referring Physician Orthopaedic Surgery 05/17/23 Brody Ibrahim DPM [address] [place] [address] Referring Physician Podiatry 05/17/23 Curriculum Assistant Principal Relationship Specialty Start Date End Date Jordan Duncan MD [address] [place] [phone] (Fax) PCP - General Family Medicine 10/25/22 Jordan Duncan MD [address] [place] [address] (Fax) PCP - ACO Reach 08/05/23 Mitch Mello MD [address] [place] [address] Referring Physician Cardiology 05/17/23 Jr. Anuja Henson DO [address] [facility] [address] [place] [address] Referring Physician Orthopaedic Surgery 05/17/23 Brody Ibrahim DPM [address] [place] [address] Referring Physician Podiatry 05/17/23 Curriculum Assistant Principal Relationship Specialty Start Date End Date Jordan Duncan MD [address] [place] [address] (Fax) PCP - General Family Medicine 10/25/22 Jordan Duncan MD [address] [place] [address] PCP - ACO Reach 08/05/23 Mitch Mello MD [address] [place], [place] [phone] Referring Physician Cardiology 05/17/23 Jr. Anuja Henson DO [address] [place] [address] Referring Physician Orthopaedic Surgery 05/17/23 Brody Ibrahim DPM [address] [place], [place] [phone] Referring Physician Podiatry 05/17/23 Curriculum Assistant Principal Relationship Specialty Start Date End Date Jordan Duncan MD [address] [place] [address] PCP - General Family Medicine 10/25/22 Jordan Duncan MD [address] [place] [address] PCP - ACO Reach 08/05/23 Mitch Mello MD [address] [place] [address] Referring Physician Cardiology 05/17/23 Jr. Anuja Henson DO [address] [facility] [address] [place] [address] Referring Physician Orthopaedic Surgery 05/17/23 Brody Ibrahim DPM [address] [place] [address] Referring Physician Podiatry 05/17/23 Curriculum Assistant Principal Relationship Specialty Start Date End Date Jordan Duncan MD [address] [place] [address] (Fax) PCP - General Family Medicine 10/25/22 Jordan Duncan MD [address] [place] [address] (Fax) PCP - ACO Reach 08/05/23 Mitch Mello MD [address] [place] [address] Referring Physician Cardiology 05/17/23 Jr. Anuja Henson DO [address] [place] [address] Referring Physician Orthopaedic Surgery 05/17/23 Brody Ibrahim DPM [address] [place] [address] Referring Physician Podiatry 05/17/23 Curriculum Assistant Principal Relationship Specialty Start Date End Date Jordan Duncan MD (Fax) PCP - General 07/25/19 Curriculum Assistant Principal Relationship Specialty Start Date End Date Jordan Duncan MD [address] [place] [address] (Fax) PCP - General Family Medicine 10/25/22 Jordan Duncan MD [address] [place] [address] (Fax) PCP - ACO Reach 08/05/23 Mitch Mello MD [address] [place] [address] Referring Physician Cardiology 05/17/23 Jr. Anuja Henson DO [address] [facility] [address] [place] [address] Referring Physician Orthopaedic Surgery 05/17/23 Brody Ibrahim DPM [address] [place] [address] Referring Physician Podiatry 05/17/23 Curriculum Assistant Principal Relationship Specialty Start Date End Date Jordan Duncan MD [address] [facility] 100 [place] [address] PCP - General Family Medicine 10/25/22 Jordan Duncan MD [address] [facility] [address] [place] [address] PCP - ACO Reach 08/05/23 Jr. Anuja Henson DO 112 [facility] 150 [place] [address] Referring Physician Orthopaedic Surgery 05/17/23 Brody Ibrahim DPM [address] [place] [address] Referring Physician Podiatry 05/17/23 Anuja Huddleston MD [address] [place] [phone] Referring Physician Family Medicine 07/25/24 Topher Saavedra MD [address] [place] [address] Referring Physician Urology 07/25/24 Kitty Edmond OD [address] [place] [address] Referring Physician Optometry 07/25/24 Curriculum Assistant Principal Relationship Specialty Start Date End Date Jordan Duncan MD [address] [place] [address] PCP - General Family Medicine 10/25/22 Jordan Duncan MD [address] [place] [address] PCP - ACO Reach 08/05/23 Jr. Anuja Henson DO [address] [place] [address] Referring Physician Orthopaedic Surgery 05/17/23 Brody Ibrahim DPM [address] [place] [address] Referring Physician Podiatry 05/17/23 Anuja Huddleston MD [address] [place] [address] Referring Physician Family Medicine 07/25/24 Topher Saavedra MD [address] [place] [address] Referring Physician Urology 07/25/24 Kitty Edmond OD [address] [place] [address] Referring Physician Optometry 07/25/24 Curriculum Assistant Principal Relationship Specialty Start Date End Date Jordan Duncan MD [address] [place] [address] (Fax) PCP - General Family Medicine 10/25/22 Jordan Duncan MD [address] [place] [address] (Fax) PCP - ACO Reach 08/05/23 Jr. Anuja Henson DO [address] [place] [address] Referring Physician Orthopaedic Surgery 05/17/23 Brody Ibrahim DPM [address] [place] [address] [place] [address] Referring Physician Podiatry 05/17/23 Anuja Huddleston MD [address] [place] [phone] (Fax) Referring Physician Family Medicine 07/25/24 Topher Saavedra MD [address] [place] [address] Referring Physician Urology 07/25/24 Kitty Edmond OD [address] [place] [address] [place] [address] Referring Physician Optometry 07/25/24 Curriculum Assistant Principal Relationship Specialty Start Date End Date Jordan Duncan MD [address] [place] [address] (Fax) PCP - General Family Medicine 10/25/22 Jordan Duncan MD [address] [place] [address] (Fax) PCP - ACO Reach 08/05/23 Jr. Anuja Henson DO [address] [place] [address] Referring Physician Orthopaedic Surgery 05/17/23 Brody Ibrahim DPM [address] [facility] [place] [address] Referring Physician Podiatry 05/17/23 Anuja Huddleston MD [address] [place] [address] Referring Physician Family Medicine 07/25/24 Topher Saavedra MD [address] [place] [phone] Referring Physician Urology 07/25/24 Kitty Edmond OD [address] [place] [address] Referring Physician Optometry 07/25/24 Curriculum Assistant Principal Relationship Specialty Start Date End Date Jordan Duncan MD [address] [place] [address] (Fax) PCP - General Family Medicine 10/25/22 Jordan Duncan MD [address] [place] [address] (Fax) PCP - ACO Reach 08/05/23 Jr. Anuja Henson DO [address] [place] [address] [place] [address] Referring Physician Orthopaedic Surgery 05/17/23 Brody Ibrahim DPM [address] [place] [address] Referring Physician Podiatry 05/17/23 Anuja Huddleston MD [address] [place] [phone] (Fax) Referring Physician Family Medicine 07/25/24 Topher Saavedra MD [address] [place] [address] Referring Physician Urology 07/25/24 Kitty Edmond OD [address] [facility] [place] [address] Referring Physician Optometry 07/25/24 Curriculum Assistant Principal Relationship Specialty Start Date End Date Jordan Duncan MD [address] [place] [address] PCP - General Family Medicine 10/25/22 Jordan Duncan MD [address] [place] [address] PCP - ACO Reach 08/05/23 Jr. Anuja Henson DO [address] [place] [address] Referring Physician Orthopaedic Surgery 05/17/23 Brody Ibrahim DPM [address] [place] [address] Referring Physician Podiatry 05/17/23 Anuja Huddleston MD [address] [place] [phone] (Fax) Referring Physician Family Medicine 07/25/24 Topher Saavedra MD [address] [place] [address] Referring Physician Urology 07/25/24 Kitty Edmond OD [address] [place] [address] Referring Physician Optometry 07/25/24 Curriculum Assistant Principal Relationship Specialty Start Date End Date Jordan Duncan MD [address] [place] [address] (Fax) PCP - General Family Medicine 10/25/22 Jordan Duncan MD [address] [place] [address] (Fax) PCP - ACO Reach 08/05/23 Jr. Anuja Henson DO [address] [place] [address] Referring Physician Orthopaedic Surgery 05/17/23 Brody Ibrahim DPM [address] [facility] [place] [address] Referring Physician Podiatry 05/17/23 Anuja Huddleston MD [address] [place] [phone] (Fax) Referring Physician Family Medicine 07/25/24 Topher Saavedra MD [address] [place] [address] Referring Physician Urology 07/25/24 Kitty Edmond, CATHERINE [address] [place] [address] Referring Physician Optometry 07/25/24 Korin Kraft RN [address] [place] [address] Registered Nurse Family Medicine 12/24/24 Curriculum Assistant Principal Relationship Specialty Start Date End Date Jordan Duncan MD [address] [place] [address] PCP - General Family Medicine 10/25/22 Jordan Duncan MD [address] [place] [address] PCP - ACO Reach 08/05/23 Jr. Anuja Henson DO [address] [place] [address] Referring Physician Orthopaedic Surgery 05/17/23 Brody Ibrahim DPM [address] [facility] [place] [address] Referring Physician Podiatry 05/17/23 Anuja Huddleston MD [address] [place] [address] Referring Physician Family Medicine 07/25/24 Topher Saavedra MD [address] [place] [address] Referring Physician Urology 07/25/24 Kitty Edmond OD [address] [place] [address] Referring Physician Optometry 07/25/24 Korin Kraft RN [address] [place] [address] Registered Nurse Family Medicine 12/24/24 Curriculum Assistant Principal Relationship Specialty Start Date End Date Jordan Duncan MD [address] [place] [address] PCP - General Family Medicine 10/25/22 Jordan Duncan MD [address] [place] [address] PCP - ACO Reach 08/05/23 Jr. Anuja Henson DO [address] [facility] [address] [place] [address] Referring Physician Orthopaedic Surgery 05/17/23 Brody Ibrahim DPM [address] [facility] [place] [address] Referring Physician Podiatry 05/17/23 Anuja Huddleston MD [address] [place] [address] Referring Physician Family Medicine 07/25/24 Topher Saavedra MD [address] [place], [place] [phone] Referring Physician Urology 07/25/24 Kitty Edmond OD [address] [facility] [place] [address] Referring Physician Optometry 07/25/24 Team Status: Inactive [...] Advice Only 04/09/2024 orthotics 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 PCP: Dr. uDncan 03/27/24, A1C: 6.4 (5), BS: 132 SS: [...] BE BASED ON THE PRIMARY CLINICAL RECORDS. [employer] provides no warranty or guarantee of the accuracy or completeness of information in this document.
== END 2025-02-26 08:55 | disposition home or self-care (01) ==
LOC: WC 08:56
PROVIDERS: PCP Family Medicine; Visit Provider Physician Assistant
DX: L84 Corns and callosities (principal); E11.40 Type 2 diabetes mellitus with diabetic neuropathy, unspecified; E11.621 Type 2 diabetes mellitus with foot ulcer; L97.522 Non-pressure chronic ulcer of other part of left foot with fat layer exposed
CPT/HCPCS: 11055

== ENCOUNTER 2025-03-13 09:36 | Outpatient (OUT) | payer MEDICARE, SELFPAY ==
--- OUTSIDE RECORDS SUMMARY | 2025-03-13 09:49 | XMS_ITS | CCD ---
Author Organization [facility] Care Team Providers Care Bridge Worker Apprentice Name Role Phone PHYSICIAN, DEFAULT Unavailable Unavailable PHYSICIAN, DEFAULT Unavailable Unavailable Diego Bartlett Primary Care Provider [phone] Jordan Duncan Primary Care Provider Jordan Duncan [...] Primary Care Provider Jordan Duncan MD Unavailable [phone] Jordan Duncan MD Primary Care Provider [phone] WILLI SANCHEZ Referring Unavailable JORDAN DUNCAN Primary [...] DUNCAN Attending Unavailable Abena DIAS, Korin Unavailable [phone] Enedina Hargrove DPM Attending Provider [phone] Enedina Hargrove Attending Unavailable Enedina Hargrove Admitting [...] Propensity to adverse reactions to drug 8 [place], [place] (3 sources) Clindamycin Drug Allergy 2 [facility] (4 sources) glipiZIDE; Translations: [GLIPIZIDE] Drug Allergy 2 Diarrhea [facility] Work Phone: (20 sources) metFORMIN; Translations: [METFORMIN] Drug Allergy 2 Diarrhea, Unknown [facility] Work Phone: (20 sources) Pravastatin; Translations: [PRAVASTATIN] Drug Allergy 2 Unknown [facility] Work Phone: (4 sources) rosuvastatin; Translations: [ROSUVASTATIN] Drug Allergy 2 [facility] Work Phone: (2 sources) Clindamycin; Translations: [CLINDAMYCIN] Drug Allergy 7 [facility] Repository (1 source) glipiZIDE Drug Allergy 7 [facility] (1 source) metFORMIN Drug Allergy 7 [facility] (20 sources) Clindamycin Drug Allergy 2 Diarrhea [facility] (20 sources) ezetimibe; Translations: [EZETIMIBE] Drug Allergy 2 Unknown [facility] (20 sources) glipiZIDE Drug Allergy 2 Diarrhea, Unknown [facility] (20 sources) Rosuvastatin calcium Allergy to substance 1 Unknown [facility] Healthcare Medications Current Medications Medication Drug [...] MG 24 hr tablet Indications: Atherosclerosis of [place] coronary artery of [place] heart without angina pectoris (CMS/HCC) Take 1.5 [...] tab(s), Refills(s) 3, Pharmacy: [facility]/pharmacy #[id number], 198, cm, 02/08/25 8:10:00 EDT, [...] cap(s), Refills(s) 3, Pharmacy: [facility]/pharmacy #[id number], aptti Read, 05/21/24 10:59:00 EST, Height/Length Dosing, 160, kg, 05/21/24 10:59:00 EST, Weight Dosing Start Date: 07/16/24 Status: Ordered Quantity: 180.0 Unit: cap(s) Repeat number: 4 Start: 01-11-2024 take 1 capsule by [facility] twice daily tamsulosin 0.4 mg Cap 0.4 mg = 1 cap(s), Oral, BID, # 180 cap(s), Refills(s) 3, Pharmacy: [facility]/pharmacy #[id number], patti Read, 12/05/23 10:49:00 EDT, Height/Length Dosing, 150.3, kg, 12/05/23 10:49:00 EDT, Weight Dosing Start Date: 01/11/24 Status: Ordered Start: 06-18-2022 take 1 capsule by [facility] once daily tamsulosin 0.4 mg Cap 0.4 mg = 1 cap(s), Oral, Daily, # 90 cap(s), Refills(s) 3, Pharmacy: [facility]/pharmacy #[id number], 198patti, 11/05/22 10:14:00 EDT, Height/Length Dosing, 150, kg, 11/05/22 10:14:00 EDT, Weight Dosing Start Date: 05/26/23 Status: Ordered take 1 capsule by [facility] every twenty-four hours in the morning tamsulosin [...] mL, Refills(s) 1, Pharmacy: [facility]/pharmacy #[id number], 198, cm, 12/05/23 10:49:00 EDT, Height/Length Dosing, 150.3, kg, 12/05/23 10:49:00 EDT, Weight Dosing Start Date: 03/27/24 Status: Ordered Start: 01-03-2024 testosterone c ypionate 200 mg/mL IM Richelle 400 mg, IntraMuscular, q4wk, # 10 mL, Refills(s) 1, Pharmacy: [facility]/pharmacy #[id number], 198, cm, 12/05/23 10:49:00 EDT, Height/Length Dosing, 150.3, kg, 12/05/23 10:49:00 EDT, Weight Dosing Start Date: 01/03/24 Status: Ordered Start: 06-20-2023 testosterone c ypionate 200 mg/mL IM Richelle 450 mg, IntraMuscular, q4wk, # 10 mL, Refills(s) 1, Pharmacy: [facility]/pharmacy #[id number], 198, cm, 06/20/23 11:05:00 EST, Height/Length Dosing, 149, kg, 06/20/23 11:05:00 EST, Weight Dosing Start Date: 06/20/23 Status: Ordered Start: 05-09-2023 testosterone c ypionate 200 mg/mL IM Richelle 400 mg, IntraMuscular, q4wk, # 10 mL, Refills(s) 1, Pharmacy: [facility]/pharmacy #[id number], 198, cm, 11/05/22 10:14:00 EDT, Height/Length Dosing, 150, kg, 11/05/22 10:14:00 EDT, Weight Dosing Start Date: 05/09/23 Status: Ordered Start: 02-08-2023 testosterone c ypionate 200 mg/mL IM Richelle 400 mg, IntraMuscular, q4wk, # 10 mL, Refills(s) 2, Pharmacy: [facility]/pharmacy #[id number], 198, cm, 11/05/22 10:14:00 EDT, Height/Length Dosing, 150, kg, 11/05/22 10:14:00 EDT, Weight Dosing Start Date: 02/08/23 Status: Ordered Start: 08-27-2022 testosterone c ypionate 200 mg/mL IM Richelle 400 mg, IntraMuscular, q4wk, # 10 mL, Refills(s) 2, Pharmacy: [facility]/pharmacy #[id number], 198, cm, 06/18/22 9:10:00 EST, Height/Length Dosing, 164, kg, 06/18/22 9:10:00 EST, Weight Dosing Start Date: 08/27/22 Status: Ordered testosterone cypionate 200 mg/mL intramuscular solution (17 sources) Start: 02-01-2022 testosterone c ypionate 200 mg/mL intramuscular solution 400 mg = 2 mL, IntraMuscular, q4wk, 400mg once a month, # 10 mL, Refills(s) 3, Pharmacy: [facility]/pharmacy #[id number], 198, cm, 02/01/22 9:53:00 EDT, Height/Length Dosing, 166, kg, 02/01/22 9:53:00 EDT, Weight Dosing Start Date: 02/01/22 Status: Ordered Start: 11-23-2021 testosterone c ypionate 200 mg/mL intramuscular solution 350 mg, IntraMuscular, q4wk, # 10 mL, Refills(s) 1, Pharmacy: [facility]/pharmacy #[id number], 198, cm, 08/03/21 14:37:00 EST, Height/Length Dosing, 166, kg, 08/03/21 14:37:00 EST, Weight Dosing Start Date: 11/23/21 Status: Ordered Start: 08-03-2021 testosterone c ypionate 200 mg/mL intramuscular solution 350 mg, IntraMuscular, q4wk, # 10 mL, Refills(s) 1, Pharmacy: [facility]/pharmacy #[id number], 198, cm, 08/03/21 14:37:00 EST, [...] Coronary arteriosclerosis; Translations: [Atherosclerotic heart disease of [place] coronary artery without angina pectoris] Onset: 04-08-2017 [...] 01-11-2023 Chronic 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 (1 source) buttermaker (current) use of anticoagulants; Translations: [BANANA LOADER CURRNT USE ANTICOAGULANTS] Onset: 10-12-2022 Episodic 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 (1 source) buttermaker (current) use of aspirin; Translations: [BANANA LOADER CURRENT USE OF ASPIRIN] Onset: 10-12-2022 Episodic 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 (1 source) buttermaker (current) use of oral hypoglycemic drugs; Translations: [LONGTERM USE ORAL HYPOGLYCEMIC DX] Onset: 10-12-2022 Episodic 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 (1 source) Other detention (current) drug therapy; Translations: [OTH BANANA LOADER CURRENT DRUG THERAPY] Onset: 09-20-2022 Episodic Other [...] ABS IMMATURE GRAN 0.08 K/uL High 0.00-0.06 [facility] Comment on above: Result Comment: UNLE SS OTHERWISE INDICATED, ALL TESTING PERFORMED AT: [employer] [address] [place] [address] TIRE FIXER: JONI NI M.D. CLIA NUMBER [id number] CAP ACCREDITATION AUID [id number] ABS NEUTROPHILS 3.85 K/uL Normal 1.9-8.0 Pathology [...] of frequency *oxybutin, flomax needs refills sent [facility] IPSS: 8 History of Present Illness Tests [...] was declined from donating blood to the [place] and had to get an order from oncology). 01/14/25 - Hgb 13.4, Hct 39.4 Stopped Testosterone IM 400 mg q4wk at prior OV due to high hgb. T level decreased, as expected. Hgb improved since being off TRT despite pt never donating blood. Shares he can have units of blood taken in [place]. Does have to get a phlebotomy order [...] mg qd. New rx sent to [facility] [place]. Call if emptying becomes difficult. -F/u in [...] When Contact Information Topher SAAVEDRA MD, URL [address] [place] [address] [place] [address] Additional Instructions: 6 mos Patient Education Benign [...] PSA History of colon cancer Hx of terminologist use of blood thinners Hyperlipidemia Hypertension Hypogonadism [...] Tab glipiZI (more content not included)... Normal [facility] Comment on above: Result Comment: Elec tronically [...] 13.4 g/dL Low 14.0 - 18.0 g/dL [facility] IMMATURE GRANULOCYTES ABS AUTO 0.[address] [facility] Immature granulocytes/100 WBC (Bld) 0.4 % 0.0 - 0.5 % [facility] Interpretation and review of laboratory results Abnormal [facility] LYMPHOCYTES ABSOLUTE AUTO 1.[address] [facility] Lymphocytes/100 WBC (Bld) 17.1 % Low 20.5 - 60.0 % [facility] MCH (RBC) [Entitic mass] 32.4 pg 25.9 - 34.[address] [facility] MCHC (RBC) [Mass/Vol] 34 g/dL 29.9 - 35.2 g/dL [facility] MCV (RBC) [Entitic vol] 95.4 fL High 80.0 - 94.[address] [facility] MONOCYTES ABSOLUTE AUTO [address] [facility] Monocytes/100 WBC (Bld) 13.4 % High 1.7 - 12.0 % [facility] NEUTROPHILS ABSOLUTE AUTO 4.[address] [facility] Neutrophils/100 WBC (Bld) 62 % 43.0 - 75.0 % [facility] Platelet mean volume (Bld) [Entitic vol] 12.4 fL 9.5 - 13.5 fL [facility] EO # 0.5 [facility] TB PLT 116 Low [facility] TB RBC 4.13 Low [facility] TB[facility] WBC 7.3 [facility] 36on 01-08-2025 36 MD Maria G Peralta MA Blood testing ok, continue leqvio. Advised patient of Dr. Huddleston's findings. Patient verbalized understanding and agreed with plan of care. [facility] 01-01-2025 L Specimen: [id number] Received: 01/02/25 Status: PATRICIA Zhu Num: [id number] Spec Type: Surgical Subm Dr: Enedina Hargrove DPM, MS Tissues: A DIGIT AMPUTATION (RIGHT FIFTH TOE) Procedures: HE/3, Gross/Micro L4, Decalcification Age/ Patient Sex Location Account Attending Physician Juan Miguel Jennings 74/M LABELL [id number] Enedina Hargrove DPM, MS SPEC NUM: [id number] RECD: 01/02/25 STATUS: PATRICIA ZHU NUM: [id number] JUANA: 01/01/25-[address]: Enedina Hargrove DPM, MS ENTERED: 01/02/[address]: Christal,Lab SPEC TYPE: Surgical DEPT: RADHA MILNER ENTERED BY: [id number] RECV BY: [id number] ORDERED: HE/3, Gross/Micro L4, Decalcification ORDERED: HE/3, [...] skin margin submitted in A3. (3, , [id number] A) Microscopic Description Microscopic examination is performed. Specimen: [id number] Received: 01/02/25 Status: PATRICIA Zhu Num: [id number] Spec Type: Surgical Subm Dr: Enedina Hargrove,KATLIN, MS Tissues: A DIGIT AMPUTATION (RIGHT FIFTH TOE) Procedures: JUVENALAidan, Gross/Micro L4, Decalcification Patient: Juan Miguel Jennings [id number] ([facility]) Specimen: [id number] Received: 01/02/25 (Continued) Signed (signature on file) Christiano Lombardi MD 01/07/25 0938 Specimen: [id number] Received: 01/02/25 Status: PATRICIA Zhu Num: [id number] Spec Type: Surgical Subm Dr: Enedina Hargrove,DPM, MS Tissues: A DIGIT AMPUTATION (RIGHT FIFTH TOE) Procedures: HE/Aidan, Gross/Micro L4, Decalcification Patient: Juan Miguel Jennings [id number] (Continued) Specimen: [id number] Received: 01/02/25 (Continued) CPT Codes 81791, 19745 Specimen: [id number] Received: 01/02/25 Status: PATRICIA Zhu Num: [id number] Spec Type: Surgical Subm Dr: Enedina Hargrove,DPArin, MS Tissues: A DIGIT AMPUTATION (RIGHT FIFTH TOE) Procedures: HE/3, Gross/Micro L4, Decalcification Patient: Juan Miguel Jennings [id number] (Continued) Signed (signature on file) Christiano Lombardi MD 01/07/[address] [facility] XR FOOT RT MIN 3Von 01-02-[address] [address] XRay Report Signed Patient: JUAN MIGUEL JENNINGS MR#: [id number] : 1950 Acct:[id number] Age/Sex: 74 / M ADM Date: 01/01/25 Loc: SURGOUT Attending Dr: Enedina Hargrove D.P.M. Ordering Physician: Enedina Hargrove D.P.M. Date of Service: 01/01/25 Procedure(s): XR foot RT min 3V Accession Number(s): [id number] cc: JORDAN DUNCAN ; Enedina Hargrove D.P.M. [address] [address] Patient Name: JUAN MIGUEL JENNINGS MRN: [id number] date: 1950 Sex: M Assigned Patient Location: [facility] Current Patient Location: Accession/Order Number: [id number] Exam Date: 01/01/2025 15:03 Report Date: 01/01/2025 [...] Jr., D.O. 01/01/2025 3:04 PM Dictation Location: [place] [address] Electronically authenticated by: [id number] Y Date: 01/01/2025 15:04 Dictated By: John Pike M.D. Signed By: 01/01/25 1506 DD/ 1504 TD/TT: Enterprise Systems Administrator: [facility] Radiology, Radiologist, MD - 01/01/2025 The [place] [id number] XRay Report Signed Patient: JUAN MIGUEL JENNINGS MR#: [id number] : 1950 Acct:[id number] Age/Sex: 74 / M ADM Date: 01/01/25 Loc: SURGOUT Attending Dr: Enedina Hargrove D.P.M. Ordering Physician: Enedina Hargrove D.P.M. Date of Service: 01/01/25 Procedure(s): XR foot RT min 3V Accession Number(s): [id number] cc: JORDAN DUNCAN ; Enedina Hargrove D.P.M. The [address] [address] Patient Name: JUAN MIGUEL JENNINGS MRN: [facility]:[id number] date: 1950 Sex: M Assigned Patient Location: [facility] Current Patient Location: Accession/Order Number: [id number] Exam Date: 01/01/2025 15:03 Report Date: 01/01/2025 [...] Jr., D.O. 01/01/2025 3:04 PM Dictation Location: [place] [address] Electronically authenticated by: [id number] Y Date: 01/01/2025 15:04 Dictated By: John Pike M.D. Signed By: 01/01/25 1506 DD/ 1504 TD/TT: Enterprise Systems Administrator: [facility] Radiology Study observation (narrative) [facility] XR FOOT RT MIN 3VOrdered By: Radiologist Radiology on 01-01-2025 [facility] Work Phone: ALL CBC WITH AUTO DIFFon BASOPHILS ABSOLUTE AUTO [address] [facility] Basophils/100 WBC (Bld) 0.6 % 0.2 - 2.0 % [facility] Eosinophils/100 WBC (Bld) 5.5 % 0.9 - 7.0 % [facility] Erythrocyte distribution width (RBC) [Ratio] 13.2 % 11.0 - 15.0 % [facility] Hematocrit (Bld) [Volume fraction] 40.2 % Low 42.0 - 54.0 % [facility] Hemoglobin (Bld) [Mass/Vol] 13.8 g/dL Low 14.0 - 18.0 g/dL [facility] IMMATURE GRANULOCYTES ABS AUTO 0.[address] [facility] Immature granulocytes/100 WBC (Bld) 0.4 % 0.0 - 0.5 % [facility] Interpretation and review of laboratory results Abnormal [facility] LYMPHOCYTES ABSOLUTE AUTO 1.[address] [facility] Lymphocytes/100 WBC (Bld) 19.7 % Low 20.5 - 60.0 % [facility] MCH (RBC) [Entitic mass] 33 pg 25.9 - 34.[address] [facility] MCHC (RBC) [Mass/Vol] 34.3 g/dL 29.9 - 35.2 g/dL [facility] MCV (RBC) [Entitic vol] 96.2 fL High 80.0 - 94.[address] [facility] MONOCYTES ABSOLUTE AUTO 0.[address] [facility] Monocytes/100 WBC (Bld) 11.2 % 1.7 - 12.0 % [facility] NEUTROPHILS ABSOLUTE AUTO 4.[address] [facility] Neutrophils/100 WBC (Bld) 62.6 % 43.0 - 75.0 % [facility] Platelet mean volume (Bld) [Entitic vol] 11.9 fL 9.5 - 13.5 fL [facility] EO # 0.4 [facility] PLT 141 Low [facility] RBC 4.18 Low [facility] WBC 7.1 [facility] CHEST 2Von 12-28-[address] [address] XRay Report Signed Patient: JUAN MIGUEL JENNINGS MR#: [id number] : 1950 Acct:[id number] Age/Sex: 74 / M ADM Date: 12/28/24 Loc: [facility] Attending Dr: Enedina Hargrove D.P.M. Ordering Physician: Enedina Hargrove D.P.M. Date of Service: 12/28/24 Procedure(s): XR chest 2V Accession Number(s): [id number] cc: JORDAN DUNCAN ; Enedina Hargrove D.P.M. The [place] [id number] Patient Name: JUAN MIGUEL JENNINGS MRN: [facility]:[id number] date: 1950 Sex: M Assigned Patient Location: [facility] Current Patient Location: [facility] Accession/Order Number: [id number] Exam Date: 12/28/2024 15:02 Report Date: 12/28/2024 [...] Palacios M.D. 12/28/2024 3:03 PM Dictation Location: [place] [address] Electronically authenticated by: [id number] Y Date: 12/28/2024 15:03 Dictated By: Tomer Palacios D.O. Signed By: 12/28/24 1506 DD/ 150 TD/TT: Enterprise Systems Administrator: [facility] Radiology, Radiologist, MD - 12/28/[address] [address] XRay Report Signed Patient: JUAN MIGUEL JENNINGS MR#: [id number] : 1950 Acct:[id number] Age/Sex: 74 / M ADM Date: 12/28/24 Loc: PST Attending Dr: Enedina Hargrove D.P.M. Ordering Physician: Enedina Hargrove D.P.M. Date of Service: 12/28/24 Procedure(s): XR chest 2V Accession Number(s): [id number] cc: JORDAN DUNCAN ; Enedina Hargrove D.P.M. [place] [address] Patient Name: JUAN MIGUEL JENNINGS MRN: [id number] date: 1950 Sex: M Assigned Patient Location: [facility] Current Patient Location: [facility] Accession/Order Number: [id number] Exam Date: 12/28/2024 15:02 Report Date: 12/28/2024 [...] Palacios M.D. 12/28/2024 3:03 PM Dictation Location: [place] [address] Electronically authenticated by: [id number] Y Date: 12/28/2024 15:03 Dictated By: Tomer Palacios D.O. Signed By: 12/28/24 1506 DD/ 150 TD/TT: Enterprise Systems Administrator: GIOVANNI [facility] Radiology Study observation (narrative) [facility] XR CHEST 2VOrdered By: [facility] on 12-28-2024 [facility] [employer] Work Phone: ALL LIPID PROFILE (FASTING)o n 12-26-2024 CHOL HDL RATIO 4.3 [facility] Comment on above: 3.3 - 4.4 LOW RISK 4.4 - 7.1 AVERAGE RISK 7.1 - 11.0 MODERATE RISK >11.0 HIGH RISK Cholesterol [Mass/Vol] 172 mg/dL NINF - 200 mg/dL [facility] Cholesterol in HDL [Mass/Vol] 40 mg/dL 40 - 60 mg/dL [facility] Comment on above: > or =60 mg/dl - LOW CARDIOVASCULAR RISK <40 mg/dl - HIGH CARDIOVASCULAR RISK Interpretation and review of laboratory results Abnormal [facility] Magnesium [Mass/Vol] 77 mg/dL [facility] Comment on above: <100 mg/dl OPTIMAL 100-129 mg/dl NEAR OR ABOVE OPTIMAL 130-159 mg/dl BORDERLINE HIGH 160-189 mg/dl HIGH >190 mg/dl VERY HIGH Magnesium [Mass/Vol] 55.8 mg/dL [facility] Triglyceride [Mass/Vol] 279 mg/dL High NINF - 150 mg/dL [facility] 5 Albumin [Mass/Vol] 3.5 g/dL 3.4 - 5.0 g/dL [facility] ALBUMIN GLOBULIN RATIO [address] [facility] ALP [Catalytic activity/Vol] 77 U/L 46 - 116 U/L [facility] ALT [Catalytic activity/Vol] 44 U/L 16 - 63 U/L [facility] AST [Catalytic activity/Vol] 23 U/L 15 - 37 U/L [facility] Bilirubin [Mass/Vol] 0.5 mg/dL 0.2 - 1 .0 mg/dL [facility] Bilirubin.indirect [Mass/Vol] 0.1 mg/dL 0.0 - 0.2 mg/dL [facility] Globulin (S) [Mass/Vol] 3.6 g/dL [facility] Protein [Mass/Vol] 7.1 g/dL 6.4 - 8.2 g/dL [facility] No Panel Informationon 12-26 [facility]iton 12-21-2024 Follow-up visit [id number] Juan Miguel Jennings 1950 M Date Provider Department Center 12/21/2024 [id number], ADAM [facility] Family History Problem Relation Age of Onset Heart disease Mother Heart disease Father Family Status - Relation Status Age at Mother Father Level of Service:40894 [place] OFFICE/OUTPATIENT ESTABLISHED MOD MDM 30 MIN Normal [facility] CBC W/AUTO DIFFon 10-11-2024 ABS IMMATURE GRAN 0.03 K/uL Normal 0.00-0.06 [facility] Comment on above: Result Comment: UNLE SS OTHERWISE INDICATED, ALL TESTING PERFORMED AT: [employer] [address] [place] [address] TIRE FIXER: JONI NI M.D. CLIA NUMBER [id number] CAP ACCREDITATION AUID [id number] ABS NEUTROPHILS 3.59 K/uL Normal 1.9-8.0 Pathology [...] <= 20 mg/L (U) [Mass/Vol] 150 mg/dL [facility] are Albumin/Creatinine DL <= 1.0 mg/L (U) [Ratio] [address] [facility] Creatinine (U) [Mass/Vol] 50 mg/dL [facility] No Panel Informationon 09-18 Interpretation and review of laboratory results Abnormal [facility] COMPREHENSIVE METABOLIC PANE Efren 09-13-2024 Albumin [Mass/Vol] 4.3 g/dL Normal 3.6-5.1 [facility] Comment on above: Performed By: #### 4 , 7599 #### [facility] [address], [address] [place] [address] Adjunct Writing Instructor: Toan Lara MD #### [id number] #### [facility] [address] [place], [place] [id number] Adjunct Writing Instructor: Parvin Gray Albumin/Globulin [Mass ratio] 1.5 {ratio} Normal 1.0-2.5 [facility] Comment on above: Performed By: #### 4 , 7599 #### [facility] [address], [address] [place] [address] Adjunct Writing Instructor: Toan Lara MD #### [id number] #### [facility] [address] [place] [phone] Adjunct Writing Instructor: Parvin Gray ALP [Catalytic activity/Vol] 64 U/L Normal 35-144 [facility] Comment on above: Performed By: #### 4 96, 0 #### [facility] [address], [address] [place] [address] Adjunct Writing Instructor: Toan Lara MD #### [address] #### [facility] [address] [place], [place] [phone] Adjunct Writing Instructor: Parvin Gray ALT [Catalytic activity/Vol] 32 U/L Normal 9-46 [facility] Comment on above: Performed By: #### 4 , 0 #### [facility] [address], [address] [place] [address] Adjunct Writing Instructor: Toan Lara MD #### [address] #### [facility] [address] [place], [place] [phone] Adjunct Writing Instructor: Parvin Gray AST [Catalytic activity/Vol] 23 U/L Normal 10-35 [facility] Comment on above: Performed By: #### 4 , 7599 #### [facility] [address], [address] [place] [address] Adjunct Writing Instructor: Toan Lara MD #### [id number] #### [facility] [address] Adjunct Writing Instructor: Parvin Gray Bilirubin [Mass/Vol] 0.7 mg/dL Normal 0.2-1.2 [facility] Comment on above: Performed By: #### 4 , 7599 #### [facility] [place] [address] Adjunct Writing Instructor: Toan Lara MD #### [id number] #### [facility] [address] [place], [place] [phone] Adjunct Writing Instructor: Parvin Gray BUN/CREATININE RATIO SEE NOTE: Normal 6-22 [facility] Comment on above: Result Comment: Not Reported: BUN and Creatinine are within reference range. Performed By: #### 4 , 7599 #### [facility] [address], [address] [place] [address] Adjunct Writing Instructor: Toan Lara MD #### [id number] #### [facility] [address] [place] [phone] Adjunct Writing Instructor: Parvin Gray Calcium [Mass/Vol] 9.3 mg/dL Normal 8.6-10.3 [facility] Comment on above: Performed By: #### 4 , 7599 #### [facility] of [address], [address] [place] [address] Adjunct Writing Instructor: Toan Lara MD #### [id number] #### [facility] [address] [place] [address] Adjunct Writing Instructor: Parvin Ordoñez Flati Chloride [Moles/Vol] 105 mmol/L Normal 98-110 [facility] Comment on above: Performed By: #### 4 , 7599 #### [facility] [address], [address] [place] [address] Adjunct Writing Instructor: Toan Lara MD #### [id number] #### [facility] [address] Adjunct Writing Instructor: Parvin Felixi CO2 [Moles/Vol] 26 mmol/L Normal 20-32 [facility] Comment on above: Performed By: #### 4 , 7599 #### [facility] [address], [address] [place] [address] Adjunct Writing Instructor: Toan Lara MD #### [address] #### [facility] [address] Adjunct Writing Instructor: Parvin Gray Creatinine [Mass/Vol] 0.84 mg/dL Normal 0.70-1.28 [facility] Comment on above: Performed By: #### 4 , 7599 #### [facility] [address], [address] [place] [address] Adjunct Writing Instructor: Toan Lara MD #### [id number] #### [facility] [address] [place], [place] [id number] Adjunct Writing Instructor: Parvin Gray GFR/1.73 sq M.predicted among non-blacks MDRD (S/P/Bld) [Vol rate/Area] 93 mL/min/{1.73_m2} Normal > OR = 60 [facility] Comment on above: Performed By: #### 4 96, 7599 #### [facility] [address], [address] [place] [address] Adjunct Writing Instructor: Toan Lara MD #### [id number] #### [facility] [address] [place] [address] Adjunct Writing Instructor: Parvin Felixi Globulin (S) [Mass/Vol] 2.8 g/dL Normal 1.9-3.7 [facility] Comment on above: Performed By: #### 4 , 7599 #### [facility] [address], [address] [place] [address] Adjunct Writing Instructor: Toan Lara MD #### [id number] #### [facility] [address] Adjunct Writing Instructor: Parvin Felixi Glucose [Mass/Vol] 129 mg/dL High 65-99 [facility] Comment on above: Result Comment: Fasting reference interval For someone without known diabetes, a glucose value >125 mg/dL indicates that they may have diabetes and this should be confirmed with a follow-up test. Performed By: #### , 7599 #### [facility] [address], [address] [place] [address] Adjunct Writing Instructor: Toan Lara MD #### [id number] #### [facility] [address] Adjunct Writing Instructor: Parvin Felixi Potassium [Moles/Vol] 4.7 mmol/L Normal 3.5-5.3 [facility] Comment on above: Performed By: #### 4 , 7599 #### [facility] [address], [address] [place] [address] Adjunct Writing Instructor: Toan Lara MD #### [id number] #### [facility] Adjunct Writing Instructor: Parvin Ordoñez Flati Protein [Mass/Vol] 7.1 g/dL Normal 6.1-8.1 [facility] Comment on above: Performed By: #### 4 , 7599 #### [facility] [address], [address] [place] [address] Adjunct Writing Instructor: Toan Lara MD #### [id number] #### [facility] [address] [place] [phone] Adjunct Writing Instructor: Parvin Gray Sodium [Moles/Vol] 140 mmol/L Normal 135-146 [facility] Comment on above: Performed By: #### 4 , 0 #### [facility] [address], [address] [place] [address] Adjunct Writing Instructor: Toan Lara MD #### [id number] #### [facility] [address] [place], [place] [id number] Adjunct Writing Instructor: Parvin Gray Urea nitrogen [Mass/Vol] 23 mg/dL Normal 7-25 [facility] Comment on above: Performed By: #### 4 , 7599 #### [facility] [address], [address] [place] [address] Adjunct Writing Instructor: Toan Lara MD #### [id number] #### [facility] [address] [place], [place] [id number] Adjunct Writing Instructor: Parvin Gray HEMOGLOBIN A1con 09-13-2024 HEMOGLOBIN A1c [...] #### 4 , 0 #### [facility] [address], [address] [place], [place] [id number] Adjunct Writing Instructor: Toan Lara MD #### [id number] #### [facility] [place] [address] Adjunct Writing Instructor: Parvin Gray LIPID PANEL, [facility] 09-04 Cholesterol [Mass/Vol] 242 mg/dL High <200 [facility] Comment on above: Order Comment: FASTI NG:YES FASTING: YES Performed By: #### 4 96, 7600 #### [facility] [address], [address] [place] [address] Adjunct Writing Instructor: Toan Lara MD #### [id number] #### [facility] [address] [place] [phone] Adjunct Writing Instructor: Parvin Gray Cholesterol in HDL [Mass/Vol] 40 mg/dL Normal > OR = 40 [facility] Comment on above: Order Comment: FASTI NG:YES FASTING: YES Performed By: #### 4 96, 7600 #### [facility] [address], [address] [place] [address] Adjunct Writing Instructor: Toan Lara MD #### [id number] #### [facility] [address] [place] [phone] Adjunct Writing Instructor: Parvin Gray Cholesterol in LDL [Mass/Vol] 142 [...] LDL-C. Deion TORIBIO et al. MAHENDRA. 2013;310(19): 9252-3688 (http://education.Appature.[employer]/faq/PFN553) Performed By: #### 4 96, 7600 #### [facility] [address] [place] [address], [address] [place] [address] Adjunct Writing Instructor: Toan Lara MD #### [id number] #### [facility] [address] [place] [phone] Adjunct Writing Instructor: Parvin Gray Cholesterol.total/Ch olesterol in HDL [Mass ratio] 6.1 {ratio} High <5.0 [facility] Comment on above: Order Comment: FASTI NG:YES FASTING: YES Performed By: #### 4 96, 0 #### [facility] [address], [address] [place] [address] Adjunct Writing Instructor: Toan Lara MD #### [id number] #### [facility] [address] [place] [phone] Adjunct Writing Instructor: Parvin Gray NON HDL CHOLESTEROL 202 mg/dL (calc) High <130 [facility] Comment on above: Order Comment: FASTI NG:YES FASTING: YES Result Comment: For patients with diabetes plus 1 major ASCVD risk factor, treating to a non-HDL-C goal of <100 mg/dL (LDL-C of <70 mg/dL) is considered a therapeutic option. Performed By: #### 4 , 7599 #### [facility] [address], [address] [place] [address] Adjunct Writing Instructor: Toan Lara MD #### [id number] #### [facility] [address] [place] [phone] Adjunct Writing Instructor: Parvin Gray Triglyceride [Mass/Vol] 389 mg/dL High <150 [facility] Comment on above: Order Comment: FASTI NG:YES FASTING: YES Result Comment: If a non-fasting specimen was collected, consider repeat triglyceride testing on a fasting specimen if clinically indicated. Aaliyah et al. J. of Clin. Lipidol. 2015;9:129-169. Performed By: #### 4 , 0 #### [facility] [address], [address] [place] [address] Adjunct Writing Instructor: Toan Lara MD #### [id number] #### [facility] [address] [place] [phone] Adjunct Writing Instructor: Parvin Gray Office Visiton 07-16-2024 Follow-up visit [id number] Juan Miguel Jennings 1950 M Date Provider Department Center 07/16/2024 ANUJA ARMSTRONG [facility] Family History Problem Relation Age of Onset Heart disease Mother Heart disease Father Family Status - Relation Status Age at Mother Father Level of Service:58881 [place] OFFICE/OUTPATIENT ESTABLISHED MOD MDM 30 MIN Normal [facility] 36on 07-09-2024 36 What is his blood pressure running? We can have him try holding amlodipine to see if this will help. We can see how he's feeling at his follow-up appt next week. Normal [facility] CBC W/AUTO DIFFon 06-21-2024 ABS IMMATURE GRAN 0.04 K/uL Normal 0.00-0.06 [facility] Comment on above: Result Comment: UNLE SS OTHERWISE INDICATED, ALL TESTING PERFORMED AT: [facility] [address] [place] [address] TIRE FIXER: JONI NI M.D. CLIA NUMBER [id number] CAP ACCREDITATION AUID [id number] ABS NEUTROPHILS 5.59 K/uL Normal 1.9-8.0 Pathology [...] and informed him of above message from [facility]. He agrees to start isosorbide and amlodipine. Sent to [facility] per his request. He will see Dr. Huddleston in clinic on 07/16/2024 in [place]. Do you need me to send something to [facility] or did you already? Normal [facility] Documentationon 06-08-2024 Documentation [id number] Juan Miguel Jennings 1950 M Date Provider Department Center 06/08/2024 [id number]-XLNIIRON DU HVCANTICOAG DC HeartVAS Family History Problem Relation Age of Onset Heart disease Mother Heart disease Father Family Status - Relation Status Age at Mother Father Reason for Visit and Comments: PharmD Cardiology Consult [Other] Normal [facility] Orders Onlyon 06-02-2024 Orders Only [id number] Juan Miguel Jennings 1950 M Date Provider Department Center 06/02/2024 Tessa-PAUL CLEMONS [facility] Family History Problem Relation Age of Onset Heart disease Mother Heart disease Father Family Status - Relation Status Age at Mother Father Normal [facility] Reminderson 06-01-2024 Reminders Reminders - From: [...] ) Other: PROVIDER RELATED REMINDER:_ ( ) 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 ( ) Call Pharmacy ( ) Call Lab ( ) Other: Special Instructions:_ Comments:_ Results in chart for review Normal [facility] ALL CBC WITH AUTO DIFFon BASOPHILS ABSOLUTE AUTO 0 [facility] Basophils/100 WBC (Bld) 0.4 % 0.2 - 2.0 % [facility] Eosinophils/100 WBC (Bld) 4.2 % 0.9 - 7.0 % [facility] Erythrocyte distribution width (RBC) [Ratio] 13.8 % 11.0 - 15.0 % [facility] Hematocrit (Bld) [Volume fraction] 53 % 42.0 - 54.0 % [facility] Hemoglobin (Bld) [Mass/Vol] 17.9 g/dL 14.0 - 18.0 g/dL [facility] IMMATURE GRANULOCYTES ABS AUTO 0.[address] [facility] Immature granulocytes/100 WBC (Bld) 0.1 % 0.0 - 0.5 % [facility] Interpretation and review of laboratory results Abnormal [facility] LYMPHOCYTES ABSOLUTE AUTO 1.[address] [facility] Lymphocytes/100 WBC (Bld) 15 % Low 20.5 - 60.0 % [facility] MCH (RBC) [Entitic mass] 32.9 pg 25.9 - 34.[address] [facility] MCHC (RBC) [Mass/Vol] 33.8 g/dL 29.9 - 35.2 g/dL [facility] MCV (RBC) [Entitic vol] 97.4 fL High 80.0 - 94.[address] [facility] MONOCYTES ABSOLUTE AUTO 0.[address] [facility] Monocytes/100 WBC (Bld) 12.2 % High 1.7 - 12.0 % [facility] NEUTROPHILS ABSOLUTE AUTO 4.[address] [facility] Neutrophils/100 WBC (Bld) 68.1 % 43.0 - 75.0 % [facility] Platelet mean volume (Bld) [Entitic vol] 12.5 fL 9.5 - 13.5 fL [facility] are [facility] EO # 0.3 [facility] PLT 144 Low [facility] RBC 5.44 [facility] WBC 7.1 [facility] Ambulatory Visit Summaryon 1 [...] [facility] [address] , [place] [address]- Medications What How Much When Instructions Unchanged [...] PSA History of colon cancer Hx of detention use of blood thinners Hyperlipidemia Hypertension Hypogonadism [...] (more content not included)... Normal [facility] Urology Office/Clinic Noteon 05-21-2024 Urology Office/Clinic Note [...] Has not been able to donate blood, [place] will not let him. Pt will talk to his oncologist in [place] to see if there is another way he can donate blood. Shares he got CBC drawn on 05/08 at [facility], no results on [facility], called lab and they did not [...] onc to facilitate blood donation/get permission for [place]. 2. Elevated PSA (R97.20: Elevated prostate specific [...] [facility] [address], [place] [address]- Additional Instructions: f/u pending HGB/CBC and blood [...] PSA History of colon cancer Hx of detention use of blood thinners Hyperlipidemia Hypertension Hypogonadism [...] (more content not included)... Normal [facility] Comment on above: Result Comment: Elec tronically [...] [Mass/Vol] 189 mg/dL NINF - 200 mg/dL [facility] Cholesterol in HDL [Mass/Vol] 42 mg/dL 40 - 60 mg/dL [facility] Comment on above: > or =60 mg/dl - LOW CARDIOVASCULAR RISK <40 mg/dl - HIGH CARDIOVASCULAR RISK LDL CHOLESTEROL CALCULATED 124.2 mg/dL [facility] Comment on above: <100 mg/dl OPTIMAL 100-129 mg/dl NEAR OR ABOVE OPTIMAL 130-159 mg/dl BORDERLINE HIGH 160-189 mg/dl HIGH >190 mg/dl VERY HIGH Magnesium [Mass/Vol] 22.8 mg/dL [facility] Triglyceride [Mass/Vol] 114 mg/dL NINF - 150 mg/dL [facility] Office Visiton 05-02-2024 Follow-up visit [id number] Juan Miguel Jennings 1950 M Date Provider Department Center 05/02/2024 PAUL JAIMES [facility] Family History Problem Relation Age of Onset Heart disease Mother Heart disease Father Family Status - Relation Status Age at Mother Father Level of Service:98971 [place] OFFICE/OUTPATIENT ESTABLISHED MOD MDM 30 MIN Reason for Visit and Comments: Coronary Artery Disease [187] Hypertension [374707] Normal [facility] Ambulatory Visit Summaryon 1 06-23-2023 Ambulatory Visit Summary Ambulatory Visit Summary JUAN MIGUEL JENNINGS :1950 Visit Date:04/23/2024 Ambulatory Visit Instructions Your Diagnosis Hypogonadism Your Care Team Attending Physician - KERI NOLASCO, Topher Ordoeñz Primary Care Physician - DAKOTA NOLASCO, JORDAN Brown This Is Your Medications List [facility] Prescription (METOPROLOL TARTRATE 100 [...] AM EST With: Where: [facility] [address] [facility] [address]- Tuesday 10:45 AM EST With: Topher SAAVEDRA MD Where: [facility] [address] [facility] [place] [address]- Medications What How Much When Instructions Unchanged [...] PSA History of colon cancer Hx of detention use of blood thinners Hyperlipidemia Hypertension Hypogonadism [...] for choosing us for your care. Armando [facility] Ambulatory Visit Summaryon 1 Ambulatory Visit Summary [...] AM EST With: Where: [facility] [address] [address]- Tuesday 10:45 AM EST With: KERI NOLASCO, Topher Ordoñez Where: [facility] [address] [address]- Medications What How Much When Instructions Unchanged [...] PSA History of colon cancer Hx of terminologist use of blood thinners Hyperlipidemia Hypertension Hypogonadism [...] us for your care. Normal [facility] CBC W/AUTO DIFFon 02-22-2024 ABS IMMATURE GRAN [...] above: Result Comment: [facility] [address] [place] [address] CLIA No. [id number] CAP Accreditation No. [id number] Printing Mechanist: Shaunna Dee M.D. Platelets (Bld) [#/Vol] 128 [...] Glucose [Mass/Vol] 112 mg/dL Critically high 74-106 [facility] Comment on above: Performed By: #### P OCGLUC #### [facility] [address] [place] [address] Dr. Patria Sanders CBC AUTO DIFFon 09-15-2022 BASO # 0.0 103/ul Normal 0.0-0.[address] [facility] Comment on above: Performed By: #### C BC #### [facility] [address] [place] [address] Dr. Patria Sanders Basophils/100 WBC (Bld) 0.5 % Normal 0.2-2.[address] [facility] Comment on above: Performed By: #### C BC #### [facility] [address] [place] [address] Dr. Patria Sanders EO # 0.3 103/ul Normal 0.0-0.[address] [facility] Comment on above: Performed By: #### C BC #### [facility] [address] [place] [address] Dr. Patria Sanders Eosinophils/100 WBC (Bld) 3.2 % Normal 0.9-7.[address] [facility] Comment on above: Performed By: #### C BC #### [facility] [address] [place] [address] Dr. Patria Sanders Erythrocyte distribution width (RBC) [Ratio] 14.5 % Normal 11.0-15.[address] [facility] Comment on above: Performed By: #### C BC #### [facility] [address] [place] [address] Dr. Patria Sanders Hematocrit (Bld) [Volume fraction] 49.0 % Normal 42.0-54.[address] [facility] Comment on above: Performed By: #### C BC #### [facility] [address] [place] [address] Dr. Patria Sanders Hemoglobin (Bld) [Mass/Vol] 16.7 g/dL Normal 14.0-18.[address] [facility] Comment on above: Performed By: #### C BC #### [facility] [address] [place] [address] Dr. Patria Sanders IG # 0.03 10e3/ul Normal 0.00-0.[address] [facility] Comment on above: Performed By: #### C BC #### [facility] [address] [place] [address] Dr. Patria Sanders IG % 0.4 % Normal 0.0-0.[address] [facility] Comment on above: Performed By: #### C BC #### [facility] [address] [place] [address] Dr. Patria Sanders LYMPH # 1.1 103/ul Critically low 1.2-3.8 [facility] Comment on above: Performed By: #### C BC #### [facility] [address] [place] [address] Dr. Patria Sanders Lymphocytes/100 WBC (Bld) 14.5 % Critically low 20.5-60.0 [facility] Comment on above: Performed By: #### C BC #### [facility] [address] [place] [address] Dr. Patria Sanders MANUAL DIFF REQ NO Normal [facility] Comment on above: Performed By: #### C BC #### [facility] [address] [place] [address] Dr. Patria Sanders MCH (RBC) [Entitic mass] 32.6 pg Normal 25.9-34.[address] [facility] Comment on above: Performed By: #### C BC #### [facility] [address] [place] [address] Dr. Patria Sanders MCHC (RBC) [Mass/Vol] 34.1 g/dL Normal 29.9-35.2 [facility] Comment on above: Performed By: #### C BC #### [facility] [address] [place] [address] Dr. Patria Sanders MCV (RBC) [Entitic vol] 95.5 fL Critically high 80.0-94.[address] [facility] Comment on above: Performed By: #### C BC #### [facility] [address] [place] [address] Dr. Patria Sanders MONO # 0.8 103/ul Normal 0.3-0.[address] [facility] Comment on above: Performed By: #### C BC #### [facility] [address] [place] [address] Dr. Patria Sanders Monocytes/100 WBC (Bld) 9.6 % Normal 1.7-12.[address] [facility] Comment on above: Performed By: #### C BC #### [facility] [address] [place] [address] Dr. Patria Sanders NEUT # 5.6 103/ul Normal 1.4-6.[address] [facility] Comment on above: Performed By: #### C BC #### [facility] [address] [place] [address] Dr. Patria Sanders Neutrophils/100 WBC (Bld) 71.8 % Normal 43.0-75.0 [facility] Comment on above: Performed By: #### C BC #### [facility] [address] [place] [address] Dr. Patria Sanders Platelet mean volume (Bld) [Entitic vol] 11.6 fL Normal 9.5-13.5 [facility] Comment on above: Performed By: #### C BC #### [facility] [address] [place] [address] Dr. Patria Sanders PLT 154 103/ul Normal 150-[address] [facility] Comment on above: Performed By: #### C BC #### [facility] [address] [place] [address] Dr. Patria Sanders RBC 5.13 106/ul Normal 4.70-6.[address] [facility] Comment on above: Performed By: #### C BC #### [facility] [address] [place] [address] Dr. Patria Sanders WBC 7.8 103/ul Normal 4.0-11.[address] [facility] Comment on above: Performed By: #### C BC #### [facility] [address] [place] [address] Dr. Patria Sanders PROF CHEM 8 (BAS METB)on Anion gap [Moles/Vol] 11.4 mmol/L Normal [facility] Comment on above: Performed By: #### B MP #### [facility] [address] [place] [address] Dr. Patria Sanders Calcium [Mass/Vol] 9.1 mg/dL Normal 8.5-10.1 [facility] Comment on above: Performed By: #### B MP #### [facility] [address] [place] [address] Dr. Patria Sanders Chloride [Moles/Vol] 104 mmol/L Normal 98-[address] [facility] Comment on above: Performed By: #### B MP #### [facility] [address] [place] [address] Dr. Patria Sanders CO2 [Moles/Vol] 28.7 mmol/L Normal 21.0-32.0 [facility] Comment on above: Performed By: #### B MP #### [facility] [address] [place] [address] Dr. Patria Sanders Creatinine [Mass/Vol] 0.80 mg/dL Normal 0.70-1.[address] [facility] Comment on above: Performed By: #### B MP #### [facility] [address] [place] [address] Dr. Patria Sanders EGFR-AF SOUTH KOREAN >60 Normal >=60 [facility] Comment on above: Performed By: #### B MP #### [facility] [address] [address] [address] Patrai Sanders EGFR-NON AF SOUTH KOREAN >60 Normal >=[address] [facility] Comment on above: Performed By: #### B MP #### [facility] [address] [address] [address] Patria Sanders Glucose [Mass/Vol] 101 mg/dL Normal 74-106 [facility] Comment on above: Performed By: #### B MP #### [facility] [address] [address] [address] Patria Sanders Potassium [Moles/Vol] 4.1 mmol/L Normal 3.5-5.[address] [facility] Comment on above: Performed By: #### B MP #### [facility] [address] [address] [address] Patria Sanders Sodium [Moles/Vol] 140 mmol/L Normal 136-145 [facility] Comment on above: Performed By: #### B MP #### [facility] [address] [address] [address] Patria Sanders Urea nitrogen [Mass/Vol] 11.0 mg/dL Normal 7.0-18.[address] [facility] Comment on above: Performed By: #### B MP #### [facility] [address] [address] [address] Patria Sanders Urea nitrogen/Creatinine [Mass ratio] 13.8 mg/mg Normal [facility] Comment on above: Performed By: #### B MP #### [facility] [address] [address] [address] Patria Sanders PROTIMEon 09-15-2022 INR Coag (PPP) [Relative time] 1.02 {INR} Normal [facility] Comment on above: Performed By: #### P TT, PT #### [facility] [address] [address] [address] Patria Sanders INR GUIDELINES SEE BELOW Normal [facility] Comment on above: Result Comment: SANTO RED INR: 2.0 - 3.0 CONDITIONS NOT LISTED BELOW 2.5 - 3.5 FOR PROSTHETIC HEART VALVE REPLACEMENT 2.5 - 3.5 RECURRENT THROMBOSIS Performed By: #### P TT, PT #### [facility] [address] [place] [address] Dr. Patria Sanders PT Coag (PPP) [Time] 10.8 s Normal 9.0-11.6 [facility] Comment on above: Performed By: #### P TT, PT #### [facility] [address] [place] [address] Dr. Patria Sanders PTTon 09-15-2022 aPTT Coag (Bld) [Time] 32.0 s Normal 22.3-36.2 [facility] Comment on above: Performed By: #### P TT, PT #### [facility] [address] [place] [address] Dr. Patria Sanders Covid-19 PCR (CVDTB)on 01-04 SARS-CoV-2 (COVID-19) RNA NANCY+probe Ql (Unsp spec) Not detected Normal NOT DETECTED [facility] Comment on above: Result Comment: This test is not yet approved or cleared by the [place] FDA. When there are no FDA-approved or cleared tests available, and other criteria are met, FDA can make tests available under an emergency access mechanism called an Emergency Use Authorization (EUA). The EUA for this test is supported by the [place] of [employer] and Human Service's (HHS's) declaration [...] SARS-CoV-2. Performed By: #### C VDTBH #### [facility] [address] [place] [address] Dr. Patria Sanders Hemoglobin A1Con 09-24-2021 EAG 128.37 Normal [facility] Marketing Sales Manager Comment on above: Performed By: #### A 1C #### [facility] [address], [place] [id number] HbA1c (Bld) [Mass fraction] 6.1 % High 4.0-6.0 [facility] Marketing Sales Manager Comment on above: Performed By: #### A 1C #### [facility] [address], [place] [id number] Testosteroneon 05-11-2021 TESTOS 314.70 ng/dL Normal 193.00-740.00 [facility] Marketing Sales Manager Comment on above: Performed By: #### T EST #### [facility] [address], [place] [id number] Progress Noteon 10-12-2017 HIM IP Note 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 09-18-2024 09:24-0400 Body mass index (BMI) [Ratio] 40.1 kg/m2 Jordan Duncan MD Work Phone: [facility] 09-18-2024 09:24-0400 Body weight 157.4 kg Jordan Duncan MD Work Phone: [facility] 09-18-2024 09:24-0400 Diastolic blood pressure 70 mm[Hg] Jordan Duncan MD Work Phone: [facility] 09-18-2024 09:24-0400 Heart rate 63 /min Jordan Duncan MD Work Phone: [facility] 09-18-2024 09:24-0400 SaO2% (BldA) [Mass fraction] 98 % Jordan Duncan MD Work Phone: [facility] 09-18-2024 09:24-0400 Systolic blood pressure 124 mm[Hg] Jordan Duncan MD Work Phone: [facility] 07-25-2024 10:01-0500 Body height 198.1 cm Jordan Duncan MD Work Phone: [facility] 07-25-2024 10:01-0500 Body mass index (BMI) [Ratio] 39.64 kg/m2 Jordan Duncan MD Work Phone: [facility] 07-25-2024 10:01-0500 Body weight 155.58 kg Jordan Duncan MD Work Phone: [facility] 07-25-2024 10:01-0500 Diastolic blood pressure 74 mm[Hg] Jordan Duncan MD Work Phone: [facility] 07-25-2024 10:01-0500 Heart rate 58 /min Jordan Duncan MD Work Phone: [facility] 07-25-2024 10:01-0500 SaO2% (BldA) [Mass fraction] 98 % Jordan Duncan MD Work Phone: [facility] 07-25-2024 10:01-0500 Systolic blood pressure 120 mm[Hg] Jordan Duncan MD Work Phone: [facility] 07-05-2024 13:45-0500 Diastolic blood pressure 72 mm[Hg] Mthz Schedule [facility] [email or web address] 07-05-2024 13:45-0500 Heart rate 77 /min Mthz Schedule [facility] [email or web address] 07-05-2024 13:45-0500 Systolic blood pressure 135 mm[Hg] Mthz Schedule [facility] 07-05-2024 13:16-0500 Body temperature 97.5 [degF] Mthz Schedule [facility] 07-05-2024 13:16-0500 Respiratory rate 18 /min Mthz Schedule [facility] 05-21-2024 10:44-0500 Blood Pressure Location Topher SAAVEDRA [facility] 05-21-2024 10:44-0500 Body temperature 98.6 [degF] Topher SAAVEDRA [facility] 05-21-2024 10:44-0500 Diastolic blood pressure 79 mm[Hg] Topher SAAVEDRA [facility] 05-21-2024 10:44-0500 Heart rate 58 /min Topher SAAVEDRA [facility] 05-21-2024 10:44-0500 Respiratory rate 16 /min Topher SAAVEDRA [facility] 05-21-2024 10:44-0500 Systolic blood pressure 133 mm[Hg] Topher SAAVEDRA [facility] 05-15-2024 10:21-0500 Body height 198.1 cm Brody Ibrahim DPM Work Phone: [facility] 05-15-2024 10:21-0500 Body mass index (BMI) [Ratio] 40.45 kg/m2 Brodygarrick Ibrahim DPM Work Phone: [facility] 05-15-2024 10:21-0500 Body weight 158.76 kg Brody Ibrahim DPM Work Phone: [facility] 04-23-2024 10:41-0500 Body height 198.1 cm Brody Ibrahim DPM Work Phone: [facility] 04-23-2024 10:41-0500 Body mass index (BMI) [Ratio] 40.45 kg/m2 Brody Irbahim DPM Work Phone: [facility] 04-23-2024 10:41-0500 Body weight 158.76 kg Brody Ibrahim DPM Work Phone: [facility] 03-29-2024 12:49-0400 Body height 198.1 cm Brody Ibrahim DPM Work Phone: [facility] 03-29-2024 12:49-0400 Body mass index (BMI) [Ratio] 40.45 kg/m2 Brody Ibrahim DPM Work Phone: [facility] 03-29-2024 12:49-0400 Body weight 158.76 kg Brody Ibrahim DPM Work Phone: [facility] 03-27-2024 14:00-0400 Body height 198.1 cm Jordan Duncan MD Work Phone: [facility] 03-27-2024 14:00-0400 Body mass index (BMI) [Ratio] 40.45 kg/m2 Jordan Duncan MD Work Phone: [facility] 03-27-2024 14:00-0400 Body weight 158.76 kg Jordan Duncan MD Work Phone: [facility] 03-27-2024 14:00-0400 Diastolic blood pressure 76 mm[Hg] Jordan Duncan MD Work Phone: [facility] 03-27-2024 14:00-0400 Heart rate 71 /min Jordan Duncan MD Work Phone: [facility] 03-27-2024 14:00-0400 SaO2% (BldA) [Mass fraction] 97 % Jordan Duncan MD Work Phone: [facility] 03-27-2024 14:00-0400 Systolic blood pressure 128 mm[Hg] Jordan Duncan MD Work Phone: [facility] 03-13-2024 09:41-0400 Body height 198.1 cm Brody Ibrahim DPM Work Phone: [facility] 03-13-2024 09:41-0400 Body mass index (BMI) [Ratio] 40.45 kg/m2 Brody Ibrahim DPM Work Phone: [facility] 03-13-2024 09:41-0400 Body weight 158.76 kg Brody Ibrahim DPM Work Phone: [facility] 12-05-2023 10:38-0400 Blood Pressure Location Topher KERI [facility] 12-05-2023 10:38-0400 Body temperature 98.6 [degF] Topher SAAVEDRA [facility] 12-05-2023 10:38-0400 Diastolic blood pressure 86 mm[Hg] Topher SAAVEDRA [facility] 12-05-2023 10:38-0400 Heart rate 69 /min Topher SAAVEDRA [facility] 12-05-2023 10:38-0400 Respiratory rate 16 /min Topher SAAVEDRA [facility] 12-05-2023 10:38-0400 Systolic blood pressure 136 mm[Hg] Topher SAAVEDRA [facility] 07-19-2023 10:37-0500 Body height 198.1 cm Brody Alexandria DPM Work Phone: [facility] 07-19-2023 10:37-0500 Body mass index (BMI) [Ratio] 39.87 kg/m2 Brody Ibrahim DPM Work Phone: [facility] 07-19-2023 10:37-0500 Body weight 156.49 kg Brody Ibrahim DPM Work Phone: [facility] 06-20-2023 10:33-0500 Blood Pressure Location Topher SAAVEDRA [facility] 06-20-2023 10:33-0500 Diastolic blood pressure 86 mm[Hg] Topher SAAVEDRA [facility] 06-20-2023 10:33-0500 Heart rate 70 /min Topher SAAVEDRA [facility] 06-20-2023 10:33-0500 Respiratory rate 16 /min Topher SAAVEDRA [facility] 06-20-2023 10:33-0500 Systolic blood pressure 139 mm[Hg] Topher SAAVEDRA [facility] 11-05-2022 10:12-0400 Blood Pressure Location Topherpeter SAAVEDRA [facility] 11-05-2022 10:12-0400 Diastolic blood pressure 78 mm[Hg] Topher SAAVEDRA [facility] 11-05-2022 10:12-0400 Heart rate 68 /min Topherpeter SAAVEDRA [facility] 11-05-2022 10:12-0400 Respiratory rate 16 /min Topher SAAVEDRA [facility] 11-05-2022 10:12-0400 Systolic blood pressure 130 mm[Hg] Topher SAAVEDRA [facility] 11-03-2022 14:34-0400 Body temperature 97.5 [degF] Mthz Schedule [facility] 11-03-2022 14:34-0400 Diastolic blood pressure 77 mm[Hg] Mthz Schedule [facility] 11-03-2022 14:34-0400 Heart rate 72 /min Mthz Schedule [facility] 11-03-2022 14:34-0400 Respiratory rate 18 /min Mthz Schedule [facility] 11-03-2022 14:34-0400 Systolic blood pressure 140 mm[Hg] Mthz Schedule [facility] 06-18-2022 08:55-0500 Blood Pressure Location Topher SAAVEDRA [facility] 06-18-2022 08:55-0500 Diastolic blood pressure 82 mm[Hg] Topher SAAVEDRA [facility] 06-18-2022 08:55-0500 Heart rate 80 /min Topher SAAVEDRA [facility] 06-18-2022 08:55-0500 Respiratory rate 16 /min Topher SAAVEDRA [facility] 06-18-2022 08:55-0500 Systolic blood pressure 132 mm[Hg] Topher SAAVEDRA [facility] 05-17-2022 09:43-0500 Blood Pressure Location Topher SAAVEDRA [facility] 05-17-2022 09:43-0500 Diastolic blood pressure 92 mm[Hg] Topher SAAVEDRA [facility] 05-17-2022 09:43-0500 Heart rate 63 /min Topher SAAVEDRA [facility] 05-17-2022 09:43-0500 Systolic blood pressure 143 mm[Hg] Topher SAAVEDRA [facility] 02-01-2022 09:48-0400 Blood Pressure Location Topher SAAVEDRA [facility] 02-01-2022 09:48-0400 Diastolic blood pressure 66 mm[Hg] Topher SAAVEDRA [facility] 02-01-2022 09:48-0400 Heart rate 84 /min Topher SAAVEDRA [facility] 02-01-2022 09:48-0400 Respiratory rate 16 /min Topher SAAVEDRA [facility] 02-01-2022 09:48-0400 Systolic blood pressure 98 mm[Hg] Topher SAAVEDRA [facility] 01-28-2022 13:48-0400 Diastolic blood pressure 76 mm[Hg] [facility] Schedule [facility] [employer] 01-28-2022 13:48-0400 Heart rate 56 /min M[facility] Lab Schedule [facility] 01-28-2022 13:48-0400 Respiratory rate 18 /min [facility] Schedule [facility] [employer] 01-28-2022 13:48-0400 Systolic blood pressure 135 mm[Hg] [facility] Schedule [facility] [employer] 01-28-2022 13:25-0400 Body temperature 97.39 [degF] [facility] Schedule [facility] [employer] 10-22-2020 12:25-0400 Body temperature 97.81 [degF] Mthz Schedule [employer] Work Phone: 10-22-2020 12:25-0400 Heart rate 67 /min [facility] Schedule [employer] Work Phone: 07-27-2019 08:03-0500 Body Temperature 96.3 [degF] [facility] Schedule [facility] [place] 07-27-2019 08:03-0500 BP Diastolic 80 mm[Hg] [facility] [employer] [place] [facility] [place] 07-27-2019 08:03-0500 BP Systolic 129 mm[Hg] Mthz Schedule [employer] [place] , [place] 07-27-2019 08:03-0500 Pulse (Heart Rate) 63 /min [facility] Schedule [employer] [place], [place] 07-27-2019 08:03-0500 Respiratory Rate 20 /min [facility] [place] 03-13-2019 08:02-0400 Body Temperature 96.69 [degF] [facility] Schedule [facility] [place] 03-13-2019 08:02-0400 BP Diastolic 83 mm[Hg] Mth[facility] Schedule [facility] [place] [facility] [place] 03-13-2019 08:02-0400 BP Systolic 162 mm[Hg] [facility] [place] [facility] [place] 03-13-2019 08:02-0400 Pulse (Heart Rate) 74 /min [facility] Schedule [facility] [place] [place] 03-13-2019 08:02-0400 Respiratory Rate 20 /min [facility] [place] 01-12-2019 08:03-0400 Body Temperature 96.91 [degF] [facility] [place] 01-12-2019 08:03-0400 BP Diastolic 87 mm[Hg] [facility] [place] , [place] 01-12-2019 08:03-0400 BP Systolic 152 mm[Hg] [facility] [place] [facility] [place] 01-12-2019 08:03-0400 Pulse (Heart Rate) 63 /min [facility] Schedule [facility] [place], [place] 01-12-2019 08:03-0400 Respiratory Rate 20 /min [facility] [place] Encounters Encounter Date Encounter Type Care Provider Facility Start: 08-09-2025 [facility] Start: 02-08-2025 End: 02-08-2025 ambulatory Topher SAAVEDRA Facility:[facility] Start: 02-08-2025 End: 02-08-2025 Patient encounter procedure Topher SAAVEDRA [facility] Start: 01-15-2025 End: 01-15-2025 Adolph Duncan [...] Start: 01-01-2025 End: 01-01-2025 ambulatory Enedina Hargrove [facility] Work Phone: Start: 01-01-2025 End: 01-01-2025 Departed Referred Enedina Hargrove DPM [facility] Start: 12-28-2024 End: 12-28-2024 Clinisync Result [...] Unsolicited Start: 12-21-2024 End: 12-21-2024 ambulatory [facility] Start: 12-21-2024 End: 12-21-2024 Encounter for other preprocedural examination [facility] Start: 12-03-2024 End: 12-03-2024 Telephone encounter Jordan Duncan MD Work Phone: [facility] Start: 10-18-2024 End: 10-18-2024 Telephone encounter Jordan Duncan MD Work Phone: [facility] Start: 09-18-2024 End: 09-18-2024 Bamboo flowsheet Jordna Duncan MD Work Phone: [facility] [...] polyneuropathy, without long-term current use of insulin ([facility]/HCC); Mixed hyperlipidemia (CMS/[facility]); Adverse reaction to statin medication Start: [...] Morbid (severe) obesity due to excess calories ([facility]); BMI 39.0-39.9,adult; Type 2 diabetes mellitus with diabetic polyneuropathy, without long-term current use of insulin ([facility]/HCC); Type 2 diabetes mellitus with diabetic microalbuminuria, without long-term current use of insulin ([facility]); Type 2 diabetes mellitus with foot ulcer (CODE) ([facility]); Non-pressure chronic ulcer of other part of unspecified foot with unspecified severity ([facility]/HCC); 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); Partial nontraumatic amputation of foot, left ([facility]/HCC); Atherosclerosis of [place] coronary artery of [place] heart without angina pectoris (CMS/[facility]); History of myocardial infarction ([facility]); Mixed hyperlipidemia ([facility]); Adverse reaction to statin medication; Primary open angle glaucoma of both eyes, unspecified glaucoma stage (CMS/HCC) Start: 07-25-2024 End: 07-25-2024 ambulatory JORDAN DUNCAN Not Available Start: 07-16-2024 End: 07-16-2024 ambulatory [facility] Start: 07-05-2024 End: 07-05-2024 ambulatory WILLI [facility] Start: 07-05-2024 End: 07-05-2024 Subsequent hospital visit by physician Linus [facility] Fast Track Chair 1 Schedule [facility] Comment on above: Polycythemia (Primar y Dx) Start: 06-18-2024 End: 06-18-2024 Telephone encounter Jordan Duncan MD Work Phone: [facility] Start: 05-22-2024 End: 05-22-2024 Clinisync Result Encounter Generic External Data Provider [facility] External Department Unsolicited Start: 05-22-2024 End: 05-22-2024 Clinisync Result Encounter Generic External Data Provider [facility] External Department Unsolicited Start: 05-21-2024 End: 05-21-2024 ambulatory Topher SAAVEDRA Facility:[facility] Start: 05-21-2024 End: 05-21-2024 Patient encounter procedure Topher SAAVEDRA [facility] Start: 05-15-2024 End: 05-15-2024 ambulatory BRODY [...] ty:DEBBIE Siegel Start: 05-02-2024 End: 05-02-[address] [facility] Start: 04-23-2024 End: 04-23-2024 Bamboo flowsheet Brody Ibrahim DPM Work Phone: [facility] Start: 04-23-2024 End: 04-23-2024 Bamboo flowsheet Brody Ibrahim DPM Work Phone: [facility] Start: 04-23-2024 End: 04-23-2024 ambulatory BRODY IBRAHIM Not Available Start: 04-23-2024 End: 04-23-2024 Patient encounter procedure [facility] Comment on above: Diabetic polyneuropa thy associated with type 2 diabetes mellitus (CMS/HCC) (Primary Dx); Nontraumatic amputation of foot, left (CMS/HCC); Nontraumatic amputation of foot, right (CMS/HCC) Start: 04-09-2024 End: 04-09-2024 Telephone encounter Brody Ibrahim DPM Work Phone: [facility] Comment on above: Advice Only (orthoti cs) Start: 03-29-2024 End: 03-29-2024 Bamboo flowsheet Brody Ibrahim DPM Work Phone: [facility] Start: 03-29-2024 End: 03-29-2024 Bamboo flowsheet Brody Ibrahim DPM Work Phone: [facility] Start: 03-29-2024 End: 03-29-2024 Postop follow up visit related to original px Brody Ibrahim DPM Work Phone: [facility] Comment on above: Diabetic polyneuropa [...] Start: 03-27-2024 End: 03-27-2024 ambulatory Topher SAAVEDRA Facility:[facility] Start: 03-27-2024 End: 03-27-2024 Patient encounter procedure Topher SAAVEDRA [facility] Start: 03-13-2024 End: 03-13-2024 Bamboo francisco j Ibrahim DPM Work Phone: [facility] Start: 03-13-2024 End: 03-13-2024 Marek marx Brody Ibrahim DPM Work Phone: [facility] Start: 03-13-2024 End: 03-13-2024 Patient encounter procedure Brody Ibrahim DPM Work Phone: [facility] Comment on above: Acquired keratoderma (Primary Dx); Diabetic polyneuropathy associated with type 2 diabetes mellitus (CMS/HCC); Nontraumatic amputation of foot, left (CMS/HCC); Nontraumatic amputation of foot, right ([facility]/HCC) Start: 03-13-2024 End: 03-13-2024 ambulatory BRODY IBRAHIM Not Available Start: 03-01-2024 End: 03-01-2024 ambulatory [facility] Start: 02-27-2024 End: 02-27-2024 ambulatory Topher SAAVEDRA Facility:[facility] Start: 02-27-2024 End: 02-27-2024 Patient encounter procedure Topher SAAVEDRA [facility] Start: 01-31-2024 End: 01-31-2024 Patient encounter procedure Fernanda Solomon [facility] Start: 01-10-2024 End: 01-10-2024 ambulatory BRODY IBRAHIM Not Available Start: 12-06-2023 End: 12-06-2023 ambulatory BRODY IBRAHIM Not Available Start: 12-05-2023 End: 12-05-2023 Patient encounter procedure Topher SAAVEDRA [facility] Start: 11-09-2023 End: 11-09-2023 ambulatory [facility] Start: 11-07-2023 End: 11-07-2023 Patient encounter procedure Topher SAAVEDRA [facility] Start: 10-27-2023 End: 10-27-2023 ambulatory JORDAN DUNCAN Not Available Start: 10-12-2023 End: 10-12-2023 ambulatory JORDAN Brown MAICOLENOC Not Available Start: 10-07-2023 End: 10-07-2023 Patient encounter procedure Topher SAAVEDRA [facility] Start: 09-27-2023 End: 09-27-2023 ambulatory BRODY IBRAHIM Not Available Start: 09-09-2023 End: 09-09-2023 Patient encounter procedure Topher SAAVEDRA [facility] Start: 08-15-2023 End: 08-15-2023 Patient encounter procedure Topher SAAVEDRA [facility] Start: 07-19-2023 Bamboo Youku[employer] Brody Tyler er DPM Work Phone: [facility] Start: 07-19-2023 Bamboo flowsheet Brody dykes DPM Work Phone: [facility] Start: 07-19-2023 End: 07-19-2023 Patient encounter procedure Brody Ibrahim DPM Work Phone: [facility] Comment on above: Dermatophytosis of n ail (Primary Dx); Dystrophic nail; Diabetic polyneuropathy associated with type 2 diabetes mellitus (CMS/HCC); Nontraumatic amputation of foot, right (CMS/HCC); Nontraumatic amputation of foot, left (CMS/HCC); Acquired keratoderma Start: 07-18-2023 End: 07-18-2023 Patient encounter procedure [facility] Start: 06-20-2023 End: 06-20-2023 Patient encounter procedure Topher R KERI [facility] Start: 05-09-2023 End: 05-09-2023 Patient encounter procedure [facility]EDRA [facility] Start: 04-04-2023 End: 04-04-2023 Patient encounter procedure Topher SAAVEDRA [facility] Start: 02-08-2023 End: 02-08-2023 Patient encounter procedure [facility]UNCAN [facility] Start: 01-03-2023 End: 01-03-2023 Patient encounter procedure Topher Smita SAAVEDRA [facility] Start: 12-03-2022 End: 12-03-2022 Patient encounter procedure Topher SAAVEDRA [facility] Start: 11-05-2022 End: 11-05-2022 Patient encounter procedure Topher SAAVEDRA [facility] [employer] Start: 11-03-2022 End: 11-03-2022 Subsequent hospital visit by physician Linus [facility] Room 7 Schedule [facility] Comment on above: Polycythemia (Primar y Dx) Start: 10-25-2022 End: 10-26-2022 ambulatory ARNOLD PEOPLES Facility:[facility] Start: 10-05-2022 End: 10-06-[address] JORDAN DUNCAN . Facility:[facility] Start: 10-05-2022 End: 10-05-2022 Patient encounter procedure Topher SAAVEDRA [facility] Start: 09-30-2022 End: 09-30-[address] TOPHER SAAVEDRA . Facility:[facility] Start: 09-27-2022 End: 09-28-2022 ambulatory ARNOLD PEOPLES Facility:[facility] Start: 09-20-2022 End: 09-21-2022 ambulatory ENEDINA HARGROVE Facility:[facility] Start: 09-20-2022 Encounter for preprocedural cardiovascular examination DR TOPHER SAAVEDRA . [facility] Start: 09-20-2022 Encounter for preprocedural laboratory examination DR TOPHER SAAVEDRA . [facility] Start: 09-20-2022 Encounter for preprocedural respiratory examination DR TOPHER SAAVEDRA . [facility] Start: 09-15-2022 End: 09-16-[address] TOPHER SAAVEDRA . Facility:[facility] Start: 09-15-2022 End: 09-16-2022 Encounter for preprocedural laboratory examination DR TOPHER SAAVEDRA . Facility:[facility] Start: 09-06-2022 End: 09-06-2022 Patient encounter procedure Topher SAAVEDRA [facility] Start: 06-18-2022 End: 06-18-2022 Patient encounter procedure Topher SAAVEDRA [facility] Start: 05-20-2022 End: 05-21-2022 ambulatory ENEDINA HARGROVE Facility:H1 Start: 05-17-2022 End: 05-17-2022 Patient encounter procedure Topher SAAVEDRA [facility] Start: 04-21-2022 End: 04-22-2022 ambulatory [facility] Facility:H1 Start: 04-21-2022 End: 04-21-2022 Patient encounter procedure Mandy Schaefer [facility] [employer] Start: 04-09-2022 End: 04-10-2022 ambulatory [facility] Facility:H1 Start: 03-31-2022 End: 03-31-2022 Patient encounter procedure Mandy Schaefer [facility] Start: 03-22-2022 End: 03-23-2022 [facility] Facility:H1 Start: 03-03-2022 End: 03-03-2022 Patient encounter procedure Mandy Schaefer [facility] Start: 02-01-2022 End: 02-01-2022 Patient encounter procedure Topher SAAVEDRA [facility] Start: 01-28-2022 End: 01-28-2022 [facility] Comment on above: Polycythemia (Primar y Dx) Start: 01-18-2022 End: 01-18-[address] JORDAN DUNCAN . Facility:H1 Start: 01-06-2022 End: 01-07-2022 ambulatory [facility] Facility:H1 Start: 12-21-2021 End: 12-21-2021 Patient encounter procedure Topher SAAVEDRA [facility] Start: 11-23-2021 End: 11-23-2021 Patient encounter procedure Topher SAAVEDRA [facility] Start: 10-26-2021 End: 10-26-2021 Patient encounter procedure Topher SAAVEDRA [facility] Start: 09-28-2021 End: 09-28-2021 Patient encounter procedure Topher R SAAVEDRA [facility] Start: 08-31-2021 End: 08-31-2021 Patient encounter procedure Topher R KERI [facility] Start: 10-22-2020 End: 10-22-2020 Subsequent hospital visit by physician [facility] Med [facility]c Room 9 [facility] Comment on above: Polycythemia (Primar y Dx) Start: 07-27-2019 End: 07-27-2019 Subsequent hospital visit by physician [facility] Med Onc Room 9 [facility] Comment on above: Polycythemia (Primar y Dx) Start: 03-13-2019 End: 03-13-2019 Subsequent hospital visit by physician [facility] Med Onc Room 9 [facility] Comment on above: Polycythemia (Primar y Dx) Start: 01-12-2019 End: 01-12-2019 Subsequent hospital visit by physician [facility] Med [facility] Room 9 [facility] Start: 02-16-2018 End: 02-17-2018 Patient encounter DEFAULT PHYSICIAN Facility:[facility] Procedures Date Procedure Procedure Detail Performing [...] (FASTING) Generic External Data Provider Start: 12-26-2024 [facility] LIVER PANEL Generi c External Data [...] disease S/P JORY - LCX & RCA ([id number]. kabour) [facility] Schedule BACK SURGERY Topher SAAVEDRA Placement of stent Topher W ANA ROSA RECTAL CANCER SURGERY Agustin k KERI RIGHT VEIN REMOVED F ROM LEG Topher SAAVEDRA Plan of Treatment Date Care Activity Detail Author Start: 12-17-2030 Screening for malignant neoplasm of colon [facility] Start: 09-29-2025 Glaucoma screening Diabetes: Retinopathy Screening [facility] Start: 09-18-2025 Urine screening for protein Diabetes: Urine Protein Screening [facility] Start: 07-25-2025 Medicare Annual Wellness (AWV) Medicare Annual Wellness (AWV) [facility] Start: 02-21-2025 GFR test (Diabetes, CKD 3-4, OR last GFR 15-59) GFR test (Diabetes, CKD 3-4, OR last GFR 15-59) [facility] Start: 02-04-2025 Influenza vaccination Influenza Vaccine (#1) [facility] Start: 12-12-2024 Hemoglobin A1c measurement Diabetes: Hemoglobin A1C [facility] Start: 10-26-2024 End: 10-26-2024 Patient encounter procedure 10/26/2024 1:00 PM EDT [facility] [address] [place], [place] [id number] [facility]botomy [facility] Comment on above: phlebotomy Start: 10-17-2024 End: 10-17-2024 Patient encounter procedure 10/17/2024 1:00 PM EDT Office Visit [facility] Part of [address] [address] Newton Stevenson MD [address] [place] [address] F/U polycythemia, anal cancer [facility] Part of [facility] Comment on above: F/U polycythemia, anal cancer Start: 10-04-2024 Urine screening for protein Diabetes: Urine Protein Screening [facility] Start: 09-18-2024 End: 09-18-2024 Patient encounter procedure [facility] FM 100 Comment on above: Essential hypertension [...] Essential hypertension (CMS/HCC) Expected: 08/25/2024, Expires: 03/27/[address] [facility] Work Phone: Comment on above: Expected: 08/25/2024, Expires: Start: 08-25-2024 End: 03-27-2025 Hemoglobin A1c/Hemoglobin.total in Blood Hemoglobin A1c Lab Routine Type 2 diabetes mellitus with diabetic polyneuropathy, without long-term current use of insulin (CMS/HCC) Expected: 08/25/2024, Expires: 03/27/[address] [facility] Comment on above: Expected: 08/25/2024, Expires: Start: 08-25-2024 End: 03-27-2025 Lipid 1996 panel - Serum or Plasma Lipid panel Lab Routine Mixed hyperlipidemia (CMS/HCC) Expected: 08/25/2024, Expires: 03/27/[address] [facility] Comment on above: Expected: 08/25/2024, Expires: Start: 07-25-2024 End: 07-25-2024 Patient encounter procedure 07/25/2024 11:00 AM EST Office Visit [facility] [address] [place] [address] Jordan Duncan MD [address] [facility] [address] [place] [address] Encounter for Medicare annual wellness exam; Advance directive in chart; Encounter for screening for other disorder; Screening for alcohol problem; Morbid (severe) obesity due to excess calories ([facility]); Body mass index (BMI) 40.0-44.9, adult ([facility]) [facility] Comment on above: Encounter for Medicare annual wellness e xam; Advance directive in chart; Encounter for screening for other disorder; Screening for alcohol problem; Morbid (severe) obesity due to excess calories ([facility]); Body mass index (BMI) 40.0-44.9, adult ([facility]) Start: 06-21-2024 Hemoglobin A1c measurement Diabetes: Hemoglobin A1C [facility] Start: 05-17-2024 Medicare Annual Wellness (AWV) Medicare Annual Wellness (AWV) [facility] Start: 05-15-2024 End: 05-15-2024 Patient encounter procedure 05/15/2024 10:15 AM EST Office Visit [facility] [address] [place] [address] Brody Ibrahim DPM [address] [place] [address] [facility] Start: 04-23-2024 End: 04-23-2024 Patient encounter procedure 04/23/2024 11:00 AM EST Office Visit [facility] [address] [place] [address] Brody Ibrahim DPM [address] [place] [address] [facility] Start: 04-09-2024 End: 04-09-2024 Patient encounter procedure 04/09/2024 9:30 AM EST Office Visit [facility] [address] [address] Jordan Duncan MD [address] [place] [address] (Fax) [facility] Start: 03-29-2024 End: 03-29-2024 Patient encounter procedure 03/29/2024 1:00 PM EDT Office Visit [facility] [address] [facility] [place] [phone] Brody Ibrahim DPM [address] [place] [address] Arrived [facility] Comment on above: Arrived Start: 03-27-2024 End: 03-27-2024 Patient encounter procedure 03/27/2024 2:00 PM EDT Office Visit [facility] [address] [address] Jordan Duncan MD [address] [place] [address] (Fax) Type 2 diabetes mellitus with diabetic [...] procedure 03/13/2024 9:45 AM EDT Office Visit [facility] [address] [place] [phone] Brody Ibrahim DPM [address] [place], [place] [phone] Arrived [facility] Comment on above: Arrived Start: 02-05-2024 COVID-19 Vaccine () COVID-19 Vaccine () [facility] Start: 02-05-2024 Influenza vaccination Influenza Vaccine (#1) [facility] Start: 01-05-2024 Hemoglobin A1c measurement Diabetes: Hemoglobin A1C [facility] Start: 11-26-2023 Glaucoma screening Diabetes: Retinopathy Screening [facility] Start: 10-29-2023 GFR test (Diabetes, CKD 3-4, OR last GFR 15-59) GFR test (Diabetes, CKD 3-4, OR last GFR 15-59) [facility] Start: 10-26-2023 End: 10-26-2023 Patient encounter procedure 10/26/2023 Office Visit Oncology ChemoNewton Villalba MD [address] [place] [address] [facility] Part of [facility] Start: 10-12-2023 End: 10-12-2023 Patient encounter procedure 10/12/2023 9:30 AM EDT Office Visit [facility] [address] [place] [address] Jordan Duncan MD [address] [place] [address] [facility] Start: 09-27-2023 End: 09-27-2023 Patient encounter procedure 09/27/2023 11:00 AM EDT Procedure Visit [facility] [address] [place] [phone] Brody Ibrahim DPM [address] [place] [address] [facility] Start: 07-14-2023 Hemoglobin A1c measurement Diabetes: Hemoglobin A1C [facility] Start: 05-02-2023 Annual Wellness Visit (Medicare) Annual Wellness Visit (Medicare) [facility] Start: 10-20-2022 End: 10-20-2022 Patient encounter procedure 10/20/2022 Office Visit Oncology Newton Stevenson MD [address] [place] [address] [facility] Part of [facility] Start: 09-24-2022 Hemoglobin A1c measurement A1C test (Diabetic or Prediabetic) [facility] Start: 02-04-2022 Influenza vaccination Flu vaccine (#1) [facility] Start: 11-11-2021 Urine screening for protein [facility] Start: 10-21-2021 End: 10-21-2021 Patient encounter procedure 10/21/2021 Office Visit Oncology Newton Stevenson MD [address] [facility] [address] [place] [address] [facility] Part of [facility] Start: 10-16-2021 COVID-19 Vaccine (4 - Booster for Pfizer series) COVID-19 Vaccine (4 - Booster for Pfizer series) [facility] Start: 10-14-2021 Lipid panel Lipids [facility] Start: 10-24-2019 End: 10-24-2019 Office Visit [facility] Start: 07-31-2019 End: 07-31-2019 Appointment 07/31/2019 Appointment [facility] Start: 04-30-2019 End: 04-30-2019 Appointment 04/30/2019 Appointment [facility] Start: 02-04-2019 Influenza vaccination Flu vaccine (#1) [facility] [place] Start: 11-26-2018 Annual Wellness Visit (AWV) Annual Wellness Visit (AWV) [facility] Start: 08-17-2017 Creatinine measurement [facility]inine [facility] Work Phone: Start: 08-17-2017 Creatinine monitoring Creatinine monitoring [place], [place] Start: 08-17-2017 Potassium monitoring Potassium monitoring [place], [place] Start: 08-04-2017 A1C test (Diabetic or Prediabetic) A1C test (Diabetic or Prediabetic) [place], [place] Start: 08-04-2017 Hemoglobin A1c measurement A1C test (Diabetic or Prediabetic) [facility] Start: 02-10-2017 Abdominal aortic aneurysm screening AAA screen [facility] Start: 02-10-2017 Pneumococcal 65+ years Vaccine (1 of 2 - PCV13) Pneumococcal 65+ years Vaccine (1 of 2 - PCV13) [place], [place] Start: 01-29-2017 Shingles Vaccine (2 of 3) Shingles Vaccine (2 of 3) [facility] Start: 02-10-2015 Annual Wellness Visit (AWV) Annual Wellness Visit (AWV) [place], [place] Start: 2012 Respiratory Syncytial Virus (RSV) or age 60 yrs+ (1 - Risk 60-74 years 1-dose series) Respiratory Syncytial Virus (RSV) or age 60 yrs+ (1 - Risk 60-74 years 1-dose series) [facility] Start: 02-10-2002 Colon cancer screen colonoscopy Colon cancer screen colonoscopy [place], [place] Start: 02-10-2002 Screening for malignant neoplasm of colon Colon cancer screen colonoscopy [facility] Work Phone: Start: 02-10-2002 Shingles Vaccine (1 of 2) Shingles Vaccine (1 of 2) [place], [place] Start: 02-10-1997 Screening for malignant neoplasm of colon [facility] Start: 02-10-1971 DTaP/Tdap/Td vaccine (1 - Tdap) DTaP/Tdap/Td vaccine (1 - Tdap) [facility] Start: 02-10-1971 Hepatitis B vaccine (1 of 3 - Risk 3-dose series) Hepatitis B vaccine (1 of 3 - Risk 3-dose series) [place], [place] Start: 02-10-1970 Diabetic microalbuminuria test Diabetic microalbuminuria test [place], [place] Start: 02-10-1970 Diabetic retinal exam Diabetic retinal exam [facility] Start: 02-10-1970 Glaucoma screening Diabetic retinal exam [facility] [employer] Start: 02-10-1970 Hepatitis C screening Hepatitis C screen [facility] [employer] Start: 02-10-1970 Urine screening for protein Diabetic Alb to Cr ratio (uACR) test [facility] [employer] Start: 1964 Depression Screen Depression Screen [facility] [employer] Start: 02-10-1963 DTaP/Tdap/Td vaccine (1 - Tdap) DTaP/Tdap/Td vaccine (1 - Tdap) [place], [place] Start: 02-10-1962 [object Object] Diabetic foot exam [place], [place] Start: 02-10-1962 Diabetic foot examination Diabetic foot exam [facility] [employer] Start: 02-10-1962 Diabetic retinal exam Diabetic retinal exam [place], [place] Start: 02-10-1962 Lipid panel [facility] Start: 02-10-1962 Lipid screen Lipid screen [place], [place] Start: 1952 Annual Wellness Visit (AWV) Annual Wellness Visit (AWV) [facility] Start: 1952 Hepatitis C screen Hepatitis C screen [place], [place] Start: 1952 Hepatitis C screening Hepatitis C screen [facility] [employer] Phone: Start: 1952 Screening for malignant neoplasm of colon [facility] End: 07-05-2024 Phlebotomy therapeutic Phlebotomy therapeutic Procedures Routine One Time for 1 Occurrences starting 07/05/2024 until 07/05/2024 [facility] Work Phone: Comment on above: One Time for 1 Occurrences starting 06/08 until 07/05/2024 Immunizations Immunization Date Immunization Notes Care Provider Shania durham 01-31-2025 RSV vaccine preF3, recombinant Topher SAAVEDRA [facility] 01-31-2025 tetanus toxoid, redu edin diphtheria toxoid, and acellular pertussis vaccine, adsorbed Topher SAAVEDRA [facility] 01-31-2025 zoster vaccine recombinant Topher SAAVEDRA [facility] 03-28-2024 influenza, seasonal, injectable Brody Ibrahim DPM Work Phone: [facility] 03-28-2024 Seasonal trivalent influenza vaccine, adjuvanted, preservative free Brody Ibrahim DPM Work Phone: [facility] 03-28-2024 influenza virus vacc ine, unspecified formulation Generic Provider [facility] 02-28-2023 influenza virus vacc ine, unspecified formulation Topher SAAVEDRA [facility] 02-28-2023 Influenza, Seasonal, Quadrivalent, Adjuvanted Brody Ibrahim DPM Work Phone: [facility] 04-16-2022 influenza virus vacc ine, unspecified formulation Topher SAAVEDRA [facility] 04-16-2022 Influenza, Seasonal, Quadrivalent, Adjuvanted Brody Ibrahim DPM Work Phone: [facility] 03-23-2022 Moderna Bivalent Simmons ster Vaccination Brody Ibrahim DPM Work Phone: [facility] 03-23-2022 Moderna SARS-CoV-2 50mcg/0.5mL Booster Brody Ibrahim DPM Work Phone: [facility] 03-23-[address] 12 Years And Older Brody Ibrahim DPM Work Phone: [facility] 03-23-2022 SARS-CoV-2 (COVID-19 ) [id number] Topher SAAVEDRA [facility] 06-18-2021 SARS-CoV-2 (COVID-19 ) mRNA BNT-162b2 vax Topher SAAVEDRA [facility] 05-06-2021 influenza virus vacc ine, unspecified formulation Topher SAAVEDRA [facility] 05-06-2021 Influenza, Seasonal, Quadrivalent, Adjuvanted Brody Ibrahim DPM Work Phone: [facility] 05-06-2021 SARS-CoV-2 (COVID-19 ) Ad26 vaccine, recombinant Topher SAAVEDRA [facility] 08-28-2020 SARS-CoV-2 (COVID-19 ) mRNA BNT-162b2 vax Topher SAAVEDRA [facility] 08-28-2020 SARS-CoV-2, Unspecified Garry Ibrahim DPM Work Phone: [facility] 08-27-2020 Pfizer Purple Cap SARS-CoV-2 Vaccination Brody Ibrahim DPM Work Phone: [facility] 08-08-2020 SARS-CoV-2 (COVID-19 ) mRNA BNT-162b2 vax Topher SAAVEDRA [facility] Comment on above: Result Comment: 2022: [id number] 08-08-2020 SARS-CoV-2, Unspecified Garry Ibrahim DPM Work Phone: [facility] 08-07-2020 Pfizer Purple Cap SARS-CoV-2 Vaccination Brody Ibrahim DPM Work Phone: [facility] 08-04-2020 SARS-CoV-2 (COVID-19 ) Ad26 vaccine, recombinant Topher SAAVEDRA [facility] 03-22-2020 influenza virus vacc ine, unspecified formulation Topher SAAVEDRA [facility] 03-22-2020 Influenza, Seasonal, Quadrivalent, Adjuvanted Brody Rusher DPM Work Phone: [facility] 03-06-2019 pneumococcal conjuga te vaccine, 13 valent Topher SAAVEDRA [facility] 03-05-2019 influenza virus vacc ine, unspecified formulation Topher SAAVEDRA [facility] 03-05-2019 influenza, high dose seasonal, preservative-free Brody Rusher DPM Work Phone: [facility] 03-05-2019 pneumococcal polysaccharide vaccine, 23 valent Topher SAAVEDRA [facility] 03-04-2019 Influenza, High-dose Seasonal, Quadrivalent, Preservative Free Brody Rusher DPM Work Phone: [facility] 03-04-2019 pneumococcal polysaccharide vaccine, 23 valent Brody Rusher DPM Work Phone: [facility] 03-03-2018 influenza virus vacc ine, unspecified formulation Topher SAAVEDRA [facility] 03-03-2018 influenza, high dose seasonal, preservative-free Brody Rusher DPM Work Phone: [facility] 03-03-2018 pneumococcal conjuga te vaccine, 13 valent Tophre SAAVEDRA [facility] 03-03-2018 pneumococcal polysaccharide vaccine, 23 valent Brody Rusher DPM Work Phone: [facility] 03-02-2018 pneumococcal conjuga te vaccine, 13 valent Brody Rusher DPM Work Phone: [facility] 04-06-2017 influenza virus vacc ine, unspecified formulation Topher SAAVEDRA [facility] 04-06-2017 influenza, injectabl e, quadrivalent, preservative free Brody Rusher DPM Work Phone: [facility] 12-04-2016 pneumococcal polysaccharide vaccine, 23 valent Topher SAAVEDRA [facility] 12-04-2016 zoster vaccine, live Topher SAAVEDRA [facility] 03-06-2016 Influenza Vaccine, unspecified formulation Mthz Schedule [facility] 03-06-2016 influenza virus vacc ine, H5N1, A/[place] (national stockpile) Brody Ibrahim DPM Work Phone: [facility] 03-06-2016 influenza virus vacc ine, unspecified formulation Brody Ibrahim DPM Work Phone: [facility] 03-06-2016 Influenza, High-dose Seasonal, Quadrivalent, Preservative Free Brody Ibrahim DPM Work Phone: [facility] 03-06-2016 influenza, unspecifi ed formulation Topher SAAVEDRA [facility] 01-23-2016 influenza virus vacc ine, unspecified formulation Topher SAAVEDRA [facility] 01-23-2016 influenza, injectabl e, quadrivalent, preservative free Brody Ibrahim DPM Work Phone: [facility] 06-06-2015 pneumococcal polysaccharide vaccine, 23 valent Topher SAAVEDRA [facility] 03-23-2014 influenza virus vacc ine, unspecified formulation Topher SAAVEDRA [facility] 03-23-2014 influenza, seasonal, injectable Brody Ibrahim DPM Work Phone: [facility] 04-06-2013 influenza virus vacc ine, unspecified formulation Topher SAAVEDRA [facility] 04-06-2013 influenza, seasonal, injectable Brody Ibrahim DPM Work Phone: [facility] 04-06-2013 zoster vaccine, live Topher SAAVEDRA [facility] 04-05-2013 zoster vaccine, live Brody Ibrahim DPM Work Phone: [facility] 04-21-2009 novel influenza-H1N1 -09, preservative-free, injectable Brody Ibrahim DPM Work Phone: [facility] Payers Date Payer Category Payer Self-pay 2022 Private Health Insurance [id number] 2022 Unknown 2017 Medicare [id number] 2017 Medicare xxxxxxxxxxx [id number] 1959 Medicare [id number] 1959 Private Health Insurance [id number] 1952 Unknown [id number] 2.16.84 0.1.402547.3.579.2.593 1952 Unknown [id number] 2.16.84 0.1.891723.3.579.2.593 1952 Unknown [id number] 2.16.84 0.1.464750.3.579.2.593 1952 Unknown [id number] 2.16.84 0.1.358120.3.579.2.593 1952 Unknown [id number] 2.16.84 0.1.657503.3.579.2.593 1952 Unknown [id number] 2.16.84 0.1.722193.3.579.2.593 1952 Unknown [id number] 2.16.84 0.1.345573.3.579.2.593 1952 Unknown [id number] 2.16.84 0.1.177701.3.579.2.593 1952 Unknown [id number] 2.16.84 0.1.757479.3.579.2.593 1952 Unknown [id number] 2.16.84 0.1.917276.3.579.2.593 1952 Unknown [id number] 2.16.84 0.1.504462.3.579.2.593 1952 Unknown [id number] 2.16.84 0.1.657989.3.579.2.593 1952 Unknown [id number] 2.16.8 40.1.631526.3.579.2.173 1952 Unknown [id number] 2.16.8 40.1.906525.3.579.2.173 1952 Unknown [id number] 2.16.8 40.1.847206.3.579.2.173 1952 Unknown [id number] 2.16.84 0.1.558203.3.579.2.1259 1952 Unknown [id number] 2.16.84 0.1.375445.3.579.2.1259 1952 Unknown [id number] 2.16.84 0.1.105690.3.579.2.1259 1950 Unknown [id number] 2.16.84 0.1.095682.3.579.2.1259 1950 Unknown [id number] 2.16.84 0.1.409764.3.579.2.1259 1950 Unknown [id number] 2.16.84 0.1.891539.3.579.2.1258 1952 Unknown [id number] 2.16.84 0.1.403304.3.579.2.1258 1952 Unknown [id number] 2.16.84 0.1.755300.3.579.2.1258 1952 Unknown [id number] 2.16.84 0.1.023786.3.579.2.1258 1952 Unknown [id number] 2.16.84 0.1.292902.3.579.2.1258 1952 Unknown [id number] 2.16.84 0.1.494108.3.579.2.1258 1952 Unknown [id number] 2.16.84 0.1.287517.3.579.2.1258 1952 Unknown [id number] 2.16.8 40.1.159862.3.579.2.727 1952 Unknown [id number] 2.16.8 40.1.664333.3.579.2.727 1952 Unknown [id number] 2.16.8 40.1.946063.3.579.2.727 1952 Unknown [id number] 2.16.8 40.1.112744.3.579.2.727 1952 Unknown [id number] 2.16.8 40.1.099204.3.579.2.727 1952 Unknown [id number] 2.16.8 40.1.172467.3.579.2.727 1950 Unknown [id number] 2.16.8 40.1.010330.3.579.2.727 Medicare [id number] Unknown [id number] 2.16.8 40.1.615557.3.579.2.531 Social History Date Type Detail Facility Start: 10-18-2018 End: 02-08-2025 Tobacco smoking status [facility] Start: 08-31-1979 End: 06-06-2012 History of tobacco use [facility] Start: 10-18-2018 End: 09-18-2024 Cigarettes smoked current (pack per day) - Reported [facility] Start: 10-18-2018 End: 09-18-2024 Alcohol intake No [facility] Start: 01-23-2014 End: 11-02-2023 [facility] Start: 1950 Sex Assigned At Not on file M [place], [place] Start: 10-18-2018 End: 11-02-2023 Alcohol intake Current non-drinker of alcohol (finding) [place], [place] Start: 10-22-2020 End: 12-06-2023 Tobacco use and exposure Never used [facility] Start: 01-18-2022 End: 01-28-2022 Exposure to SARS-CoV-2 (event) Not sure [facility] Start: 08-31-1979 End: 06-06-2012 History of tobacco use Cigarette Smoker KITTY QUIROZ [facility] Work Phone: Start: 05-17-2023 End: 01-01-2025 [...] gender (finding) [facility] Tobacco smoking stat [facility] Unknown if ever smoked [facility] Work Phone: Start: 12-06-2018 Sex Male (finding) [facility] Start: 1950 Sex Assigned At Male F [facility] Tobacco smoking status Never [facility] Sexual Orientation [facility] Functional Status Date Assessment Result Facility 09-18-2024 Patient Health Quest ionnaire 2 item (PHQ-2) [Reported] [facility] 05-21-2024 Functional Status N/A [facility] 12-05-2023 Functional Status N/A [facility] 06-20-2023 Functional Status N/A [facility] 11-05-2022 Functional Status N/A [facility] 06-18-2022 Functional Status N/A [facility] 05-17-2022 Functional Status N/A [facility] 02-01-2022 Functional Status N/A [facility] Clinical Notes 10-22-2020 to 02-08-2025 Telephone [...] urethra. Follow these instructions at home: Take zpfr-yon-qupmezh and prescription medicines only as told by [...] provider. Document Revised: 12/09/2021 Document Reviewed: 12/09/2021 [employer] Patient Education 2023 Crowdly. Follow Up Care 01/14/2025 08:10:35 With:KERI NOLASCO, Topher Ordoñez, URL Address: [address] [place] [id number] When: Unknown Comments:6 mos [facility] 02-08-2025 Note Patient Education Urology Benign [...] Follow these instructions at home: ??? Take jiwl-vbx-invhdow and prescription medicines only as told by [...] do not get (more content not included)... [facility] 12-21-2024 Note Patient is here for surgery clearance. Patient is having right 5th hammer toe removed. Patient states he feels pretty good, patient is able to every day chores. Patient denies cardiac symptoms at this time [facility] 12-21-2024 Note SUBJECTIVE Reason for Visit: Juan Miguel Jennings is a 74 y.o. year old male patient being seen for surgical clearance. HPI: Juan Miguel Jennings is a 74 y.o. year old male with significant medical history of CAD status post DE with stenting procedures in the past (2006, [...] normal; visually estimate (more content not included)... [facility] 12-03-2024 Telephone encounter Note Bret called requesting a refill on his cyclobenzaprine (Flexeril) 10 MG to [facility] in [place] [facility] 12-03-2024 Miscellaneous Notes Bret called requesting a refill on his cyclobenzaprine (Flexeril) 10 MG to [facility] in [place] documented in this encounter [facility] 10-18-2024 Telephone encounter Note Reviewed in prescription sent. [facility] 10-18-2024 Miscellaneous Notes Reviewed in prescription sent. [...] these to go to [facility] in [place]. documented in this encounter [facility] 10-18-2024 Telephone encounter Note Bret called needing [...] these to go to [facility] in [place]. T [facility] 09-18-2024 History of Present illness Narrative Images [...] microalbuminuria, without long-term current use of insulin ([facility]) As above - POCT microalbumin manually resulted 4. Type 2 diabetes mellitus with diabetic polyneuropathy, without long-term current use of insulin ([facility]) Chronic problem, stable, he does think the [...] 90 tablet; Refill: 1 5. Mixed hyperlipidemia (CMS/[facility]) Chronic problem that is currently untreated. He understands he would be better served by treatment. They talked about some of the other injectables he is working with another physician on that. 6. Adverse reaction to statin medication Exclusionary measure for HEDIS. documented in this encounter [facility] 07-25-2024 History of Present illness Narrative Images [...] Yes Vision Screening: Yes, patient sees regular paver/file clerk Hearing Screening: Yes, concerned about hearing loss Cognitive Screening Self Assessment: No concerns rasied by family members, friends, or caretakers Three Word Registration: Zakiya Decker, Finger Clock Drawing: Normal Clock - 2 Three Word Recall: 2/3 words correct - 2 Total Score (0-5 Points): 4 Advance Care Planning Do you have a living will?: Yes Do you have a medical power of employment law attorney?: Yes Who is your medical power of employment law attorney?: Mary Yancey- Daughter Objective : BP [...] Morbid (severe) obesity due to excess calories ([facility]) Patient has lost some weight but with his comorbid conditions he still meets the criteria for morbid obesity. 6. BMI 39.0-39.9,adult Defines the morbid obesity 7. Type 2 diabetes mellitus with diabetic polyneuropathy, without long-term current use of insulin ([facility]) Chronic problem, stable, monitored longitudinally. 8. Type 2 diabetes mellitus with diabetic microalbuminuria, without long-term current use of insulin ([facility]) Chronic problem, stable, monitored longitudinally. 9. Type 2 diabetes mellitus with foot ulcer (CODE) ([facility]) Chronic problem, stable, monitored longitudinally. Primarily managed by Podiatry 10. Non-pressure chronic ulcer of other part of unspecified foot with unspecified severity ([facility]/HCC) Chronic problem, stable, monitored longitudinally.Primarily managed by Podiatry 11. 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 Partial nontraumatic amputation of foot, left ([facility]/HCC) Chronic problem, stable, monitored longitudinally.Primarily managed by Podiatry 13. Atherosclerosis of [place] coronary artery of [place] heart without angina pectoris ([facility]/HCC) Chronic problem, stable, monitored longitudinally. Comanaged with Cardiology 14. History of myocardial infarction (CMS/[facility]) Chronic problem, stable, monitored longitudinally.Comanaged with [...] 2024 documented in this encounter [facility] 07-16-2024 Note DC Cardiology - [facility] Subjective Juan Miguel Jennings is [...] of colon cancer Testicular hypofunction Hx of terminologist use of blood thinners Internal derangement of [...] man with prior history of CAD, s/p DE and stenting procedures in the past. He [...] the left s (more content not included)... [facility] 07-05-2024 History of Present illness Narrative [...] Denies any dizziness. documented in this encounter [facility] 06-18-2024 Telephone encounter Note Prescription sent [facility] 06-18-2024 Miscellaneous Notes Prescription sent Bret left a message requesting a refill on his Famotidine to [facility] in [place]. documented in this encounter [facility] 06-18-2024 Telephone encounter Note Bret left a message requesting a refill on his Famotidine to [facility] in [place]. [facility] 06-08-2024 Note Contacted patient to discuss lipids management. Reviewed mechanism of action, side effects, and administration of Repatha with patient; pt agreeable to start. Will send RX to assess costs. Of note, pt may qualify for patient assistance [employer]. Will fill out paperwork and send to Cardiology to assist in obtaining signature and income documents. Iron Bess PharmD Cardiology Outpatient Clinical Pharmacist 06/11/24 [facility] 06-08-2024 Note Application for [employer] filled out for patient. Requires patient signature. Will notify Cardiology technical support manager to coordinate signature by patient. Application uploaded to media. Patient will come to Cardiology clinic to sign. Iron Bess PharmD Cardiology Outpatient Clinical Pharmacist 06/14/24 [facility] 06-08-2024 Note [facility] - Lipids Provider: Dr. Huddleston Department: Cardiology Juan Miguel Jennings is a 74 y.o. male with PMH of CAD s/p DE and stents, HTN, HLD, MO w/ CPAP, [...] Bess PharmD Cardiology Outpatient Clinical Pharmacist 06/11/24 [facility] 05-21-2024 Hospital Discharge instructions Patient Education [...] your health care provider. General instructions Take dadp-jeu-zygyuzb and prescription medicines only as told by [...] provider. Document Revised: 02/09/2021 Document Reviewed: 02/09/2021 [employer] Patient Education 2023 Crowdly. Follow Up Care 02/27/2024 09:12:26 With:KERI NOLASCO, Topher Ordoñez, URL Address: [facility] [address] , [place] [address]- When: Unknown [facility] 05-21-2024 Evaluation + Plan note Diagnostic Tests PendingTestosterone Level Total 05/21/24CBC w/ Auto Diff 05/21/24 [facility] 05-21-2024 Note Patient Education Obstetrics and [...] health care provider. General instructions ??? Take sicw-rlj-hxugzsd and prescription medicines only as told by [...] whe (more content not included)... [facility] 05-15-2024 History of Present illness Narrative Images [...] History: Procedure Laterality Date BACK SURGERY 2010 eGraldo Raza CATARACT EXTRACTION Left 2019 Demos OTHER [...] DPM documented in this encounter [facility] 05-15-2024 Instructions Brody Ibrahim DPM - 05/15/2024 10:15 AM EST As noted documented in this encounter [facility] 05-02-2024 Note Cardiovascular Medic [facility] SUBJECTIVE Chief Complaint Patient presents with Coronary Artery Disease Hypertension Juan Miguel Jennings is a 74 y.o. male here for follow-up. HPI PMHx: CAD s/p DE and stenting, HTN, HLD, MO and wears [...] medication Anal cancer (CMS/HCC) Amputation of foot ([facility]/HCC) Atherosclerosis of coronary artery without angina pectoris [...] part of unspecified foot with unspecified severity ([facility]/HCC) Nocturia Morbid obesity ([facility]) Microalbuminuria Old myocardial infarction Phimosis Glaucoma Status post total left knee replacement Obstructive sleep apnea syndrome S/P drug eluting coronary stent placement S/P cardiac cath Polyneuropathy due to type 2 diabetes mellitus ([facility]/HCC) Polycythemia Urinary urgency Urinary frequency Testosterone deficiency Foot callus Osteoarthritis of knee Presence of both artificial knee joints Type 2 diabetes mellitus with neurologic complication ([facility]/HCC) Past Medical History: Diagnosis Date Coronary artery disease Diabetes mellitus ([facility]/HCC) Hyperlipidemia Hypertension Sleep apnea Family History Problem [...] Rfl: Physical Exa (more content not included)... [facility] 05-02-2024 Note Patient here for 1 [...] All other systems reviewed and are negative. [facility] 04-23-2024 History of Present illness Narrative Images from the original note were not included. Subjective Patient ID: Juan Miguel Jennings is a 74 y.o. 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 [...] DPM documented in this encounter [facility] 04-23-2024 Instructions Brody Ibrahim DPM - 04/23/2024 11:00 AM EST Instructions as noted documented in this encounter [facility] 04-09-2024 Telephone encounter Note Custom orthotics arrived senthil Gruber [facility] 04-09-2024 Miscellaneous Notes Custom orthotics arrived senthil Gruber documented in this encounter [facility] 03-29-2024 History of Present illness Narrative Images [...] lesions on bottom of both feet, [facility] OTHER SURGICAL HISTORY 4 stents KaGeraldo barajas [...] Measurements obtained in the weight-bearing position utilizing food.de device. Foam impressions obtained simulated weight-bearing. Patient [...] DPM documented in this encounter [facility] 03-29-2024 Instructions Brody Ibrahim DPM - 03/29/2024 1:00 PM EDT As noted documented in this encounter [facility] 03-27-2024 History of Present illness Narrative Images [...] with Hgb A1C. Also this is a esdg-ee-ngbe visit for consideration for diabetic shoes. Patient [...] polyneuropathy, without long-term current use of insulin (CMS/[facility]) (Primary) Chronic problem, stable, to goal. Patient has multiple podiatric issues. The forms from Podiatry were reviewed. Patient's feet were examined. I concur with the forms from Podiatry. Diabetic shoes are medically indicated. I certify that I had a ohyi-qw-jhaj encounter with this patient at todays office visit. Due to this medical condition the patient requires DME. I certify that based on my findings The DME ordered is medically necessary for this patient. This has been discussed with the patient and/or their inside sales representative and mutually agreed upon. See [...] 6. Partial nontraumatic amputation of foot, left ([facility]) Comorbid condition currently being managed by Podiatry 7. Venous stasis dermatitis of both lower extremities Chronic problem, stable. Does not appear to be progressing significantly. Discussed the importance of keeping the area moisturized. 8. Type 2 diabetes mellitus with diabetic microalbuminuria, without long-term current use of insulin ([facility]) Chronic problem, stable, to goal. 9. [...] stratification for cardiovascular disease. 10. Essential hypertension ([facility]) In prescribing a renewal to their [...] - Comprehensive metabolic panel 11. Mixed hyperlipidemia ([facility]) - Lipid panel; Future - Lipid panel 12. Adverse reaction to statin medication Diagnosis for exclusion for HEDIS measures for both diabetes with statin and mixed dyslipidemia with statin. 13. Former smoker Continue nonsmoking 14. Morbid obesity (CMS/HCC) Continue lifestyle changes as able documented in this encounter [facility] 03-13-2024 History of Present illness Narrative Images [...] DPM documented in this encounter [facility] 03-13-2024 Instructions Brody Ibrahim DPM - 03/13/2024 9:45 AM EDT As noted documented in this encounter [facility] 12-05-2023 Hospital Discharge instructions Patient Education 12/05/2023 [...] therapy. Follow these instructions at home: Take ocur-plz-njdilrj and prescription medicines only as told by [...] provider. Document Revised: 01/22/2021 Document Reviewed: 01/22/2021 [employer] Patient Education 2022 Crowdly. Follow Up Care 12/05/2023 07:35:26 With:Topher SAAVEDRA MD, URL Address: [facility] [address] [place] [address]- [phone] When: Unknown [facility] 11-07-2023 Hospital Discharge instructions Follow Up Care 11/07/2023 08:41:09 With:Topher SAAVEDRA MD, URL Address: [facility] [address] [place] [phone] When: Unknown [facility] 07-19-2023 History of [...] effectively healed following treatment at [facility]. Currently relates no bleeding or drainage Review [...] lesions on bottom of both feet, [facility] OTHER SURGICAL HISTORY 4 stents KaGeraldo barajas [...] with wound right foot; effectively managed at [facility] wound care center. Care plan: conservative and [...] DPM documented in this encounter [facility] 07-19-2023 Instructions Brody Ibrahim DPM - 07/19/2023 10:30 AM EST As noted documented in this encounter [facility] 06-20-2023 Hospital Discharge instructions Patient Education 06/20/2023 [...] therapy. Follow these instructions at home: Take grgq-tsb-pkclzjb and prescription medicines only as told by [...] provider. Document Revised: 01/22/2021 Document Reviewed: 01/22/2021 [employer] Patient Education 2022 Crowdly. Follow Up Care 02/08/2023 12:23:35 With:KERI NOLASCO, Topher Ordoñez, URL Address: [facility] [address], [place] [phone] When: Unknown Comments:6 mos w/ PSA and T level (pt to also get PSA now) [facility] 11-05-2022 Hospital Discharge instructions [...] urethra. Follow these instructions at home: Take kcxq-uit-txmntxl and prescription medicines only as told by [...] provider. Document Revised: 12/09/2021 Document Reviewed: 12/09/2021 [employer] Patient Education 2022 Crowdly. Follow Up Care 05/17/2022 10:46:35 With:KERI NOLASCO, Topher Ordoñez, URL Address: [facility] [address] , [place] [address]- When: Unknown [facility] 11-03-2022 History of Present illness Narrative [...] visit documented in this encounter KITTY QUIROZ [employer] Work Phone: 09-15-2022 Note EXAM: XR CHEST 2 V HISTORY: Pre-surgery evaluation COMPARISON: None. TECHNIQUE: PA and lateral views of the chest. FINDINGS: The cardiomediastinal silhouette is normal. No focal consolidation is identified. There is no pneumothorax. No pleural effusion is noted. The osseous structures are intact. IMPRESSION: No acute cardiopulmonary process. Electronically authenticated by: DARRIUS BOLTON Date: 2022-09-15 12:[address] [facility] 06-18-2022 Hospital Discharge instructions Patient Education [...] urethra. Follow these instructions at home: Take szll-qpr-bqnmfhv and prescription medicines only as told by [...] 05/23/2006 Document Revised: 04/17/2019 Document Reviewed: 06/27/2017 [employer] Patient Education 2019 Crowdly. Follow Up Care 06/14/2022 09:33:13 With:KERI NOLASCO, Topher Ordoñez, RACIEL Address: [address] [place] [address] [place] [phone]- When: Unknown [facility] 05-17-2022 Hospital Discharge instructions [...] urethra. Follow these instructions at home: Take gksj-mnb-vdryaar and prescription medicines only as told by [...] 05/23/2006 Document Revised: 04/17/2019 Document Reviewed: 06/27/2017 [employer] Patient Education 2020 [employer] Follow Up Care 04/21/2022 09:42:50 With:KERI NOLASCO, Topher Ordoñez, CORNELIAL Address: [facility] [address] , [place] [address]- When: Unknown [facility] 03-23-2022 Note PROCEDURE: XR FOOT R [...] authenticated by: BRODY PAYAN Date: 2022-03-23 06:[address] [facility] 02-01-2022 Hospital Discharge instructions Patient Education [...] urethra. Follow these instructions at home: Take kjvc-sug-bcsdwoe and prescription medicines only as told by [...] 05/23/2006 Document Revised: 04/17/2019 Document Reviewed: 06/27/2017 [employer] Patient Education 2020 Crowdly. Follow Up Care 08/03/2021 15:20:11 With:KERI NOLASCO, Topher Ordoñez, URL Address: [address] [place] [address]- When: Unknown [facility] 10-22-2020 History of Present illness Narrative [...] complaints [facility]: Evaluation + Plan note Future Appointments Appointment Date:09/28/2021 09:00:00 AM [facility]uled [facility] Nurse Visit Appointment Date:02/01/2022 09:45:00 AM Scheduled Provider:Topher SAAVEDRA MD [facility] Appointment Type:URO Office Visit [facility] Evaluation + Plan note Future Appointments Appointment Date:10/26/2021 09:00:00 AM Scheduled Provider: Location:[facility] Appointment Type:URO Nurse Visit Appointment Date:02/01/2022 09:45:00 AM Scheduled Provider:Topher SAAVEDRA MD Location[facility] Appointment Type:URO Office Visit [facility] Evaluation + Plan note Future Appointments Appointment Date:11/23/2021 09:00:00 AM Scheduled Provider: Location:[facility] Appointment Type:URO Nurse Visit Appointment Date:02/01/2022 09:45:00 AM Scheduled Provider:Topher SAAVEDRA MD Location:[facility] Appointment Type:URO Office Visit [facility] Evaluation + Plan note Future Appointments Appointment Date:12/21/2021 09:00:00 AM Scheduled Provider: Location:[facility] Appointment Type:URO Nurse Visit Appointment Date:02/01/2022 09:45:00 AM Scheduled Provider:Topher SAAVEDRA MD Location:[facility] Appointment Type:URO Office Visit [facility] Evaluation + Plan note Future Appointments Appointment Date:02/01/2022 09:45:00 AM Scheduled Provider:Topher SAAVEDRA MD Location:[facility] Appointment Type:URO Office Visit Diagnostic Tests PendingTestosterone Level Total 12/21/21 [facility] Evaluation + Plan note Future Appointments Appointment Date:03/01/2022 09:30:00 AM Scheduled Provider: Location:[facility] Appointment Type:URO Nurse Visit Diagnostic Tests PendingTestosterone Level Total 04/06/22PSA Total 03/06/22 [facility] Evaluation + Plan note Future Appointments Appointment Date:03/31/2022 08:15:00 AM Scheduled Provider: Location:[facility] Appointment Type:URO Nurse Visit [facility] Evaluation + Plan note Future Appointments Appointment Date:04/21/2022 09:15:00 AM Scheduled Provider: Location:[facility] Appointment Type:URO Nurse Visit [facility] Evaluation + Plan note Future Appointments Appointment Date:05/19/2022 08:00:00 AM Scheduled Provider:Mandy Schaefer MD Location:[facility] Appointment Type:URO Office Visit Diagnostic Tests PendingPSA Total 04/16/22Testosterone Level Total 04/16/22 [facility] Evaluation + Plan note Future Appointments Appointment Date:06/14/2022 09:00:00 AM Scheduled Provider: Location:[facility] Appointment Type:URO Nurse Visit Appointment Date:11/15/2022 08:45:00 AM Scheduled Provider:Topher SAAVEDRA MD Location[facility] Appointment Type:URO Office Visit Diagnostic Tests PendingPSA Total 05/17/22Testosterone Level Total 05/17/22 [facility] Evaluation + Plan note Future Appointments Appointment Date:09/06/2022 09:00:00 AM Scheduled Provider: Location:[facility] Appointment Type:URO Nurse Visit Appointment Date:11/15/2022 08:45:00 AM Scheduled Provider:Topher SAAVEDRA MD Location:[facility] Appointment Type:URO Office Visit [facility] Evaluation + Plan note Future Appointments Appointment Date:10/05/2022 09:00:00 AM Scheduled Provider: Location:[facility] Appointment Type:URO Nurse Visit Appointment Date:10/29/2022 08:45:00 AM Scheduled Provider:Topher SAAVEDRA MD Location:[facility] Appointment Type:URO Office Visit Appointment Date:11/05/2022 09:45:00 AM Scheduled Provider:Topher SAAVEDRA MD Location:[facility] Appointment Type:URO Office Visit [facility] Evaluation + Plan note Future Appointments Appointment Date:11/05/2022 09:45:00 AM Scheduled Provider:Topher SAAVEDRA MD [facility] Type:[facility]O Office Visit [facility] Evaluation + Plan note Future Appointments Appointment Date:12/03/2022 09:15:00 AM Scheduled Provider: Location:[facility] Appointment Type:URO Nurse Visit Diagnostic Tests PendingTestosterone Level Total 11/05/22PSA Total 11/05/22 [facility] Evaluation + Plan note Future Appointments Appointment Date:01/03/2023 08:15:00 AM Scheduled Provider: Location:[facility] Appointment Type:URO Nurse Visit [facility] Evaluation + Plan note Future Appointments Appointment Date:01/31/2023 08:45:00 AM Scheduled Provider: Location:[facility] Appointment Type:URO Nurse Visit [facility] Evaluation + Plan note Future Appointments Appointment Date:03/07/2023 08:45:00 AM Scheduled Provider: [facility] App[facility] Type:URO Nurse Visit Appointment Date:04/04/2023 08:45:00 AM Scheduled Provider: Location:[facility] Appointment Type:URO Nurse Visit Appointment Date:05/02/2023 08:45:00 AM Scheduled Provider: Location:[facility] Appointment Type:URO Nurse Visit Appointment Date:05/27/2023 09:45:00 AM Scheduled Provider:Topher SAAVEDRA MD Location:[facility] Appointment Type:URO Office Visit [facility] Evaluation + Plan note Future Appointments Appointment Date:05/02/2023 08:45:00 AM Scheduled Provider: Location:[facility] Appointment Type:URO Nurse Visit Appointment Date:06/20/2023 10:30:00 AM Scheduled Provider:Topher SAAVEDRA MD Location:[facility] Appointment Type:URO Office Visit [facility] Evaluation + Plan note Future Appointments Appointment Date:06/20/2023 10:30:00 AM Scheduled Provider:Topher SAAVEDRA MD Location:[facility] Appointment Type:URO Office Visit Diagnostic Tests PendingTestosterone Level Total 05/09/23 [facility] Evaluation + Plan note Future Appointments Appointment Date:07/18/2023 09:30:00 AM Scheduled Provider: Location:[facility] Appointment Type:URO Nurse Visit Diagnostic Tests PendingPSA Total 06/20/23Testosterone Level Total 06/20/23 [facility] Evaluation + Plan note Future Appointments Appointment Date:08/15/2023 10:00:00 AM Scheduled Provider: Location:[facility] Appointment Type:URO Nurse Visit [facility] Evaluation + Plan note Future Appointments Appointment Date:09/09/2023 08:30:00 AM Scheduled Provider: Location:[facility] Appointment Type:URO Nurse Visit [facility] Evaluation + Plan note Future Appointments Appointment Date:10/07/2023 08:30:00 AM Scheduled Provider: Location:[facility] Appointment Type:URO Nurse Visit [facility] Evaluation + Plan note Future Appointments Appointment Date:11/07/2023 09:00:00 AM Scheduled Provider: Location:[facility] Appointment Type:URO Nurse Visit [facility] Evaluation + Plan note Future Appointments Appointment Date:12/05/2023 10:45:00 AM Scheduled Provider:Topher SAAVEDRA MD Location:[facility] Appointment Type:URO Office Visit [facility] Evaluation + Plan note Future Appointments Appointment Date:01/02/2024 09:00:00 AM Scheduled Provider: Location:[facility] Appointment Type:URO Nurse Visit Diagnostic Tests PendingTestosterone Level Total 12/05/23emoglobin 12/05/23 [facility] Evaluation + Plan note Future Appointments Appointment Date:01/02/2024 09:00:00 AM Scheduled Provider: Location:[facility] Appointment Type:URO Nurse Visit [facility] Evaluation + Plan note Future Appointments Appointment Date:02/27/2024 09:00:00 AM Scheduled Provider: Location:[facility] Appointment Type:URO Nurse Visit [facility] Evaluation + Plan note Future Appointments Appointment Date:03/27/2024 09:00:00 AM Scheduled Provider: Location:[facility] Appointment Type:URO Nurse Visit Appointment Date:04/23/2024 09:30:00 AM Scheduled Provider: Location:[facility] Appointment Type:URO Nurse Visit Appointment Date:05/21/2024 10:45:00 AM Scheduled Provider:Topher SAAVEDRA MD [facility] Type:URO Office Visit [facility] Evaluation + Plan note Future Appointments Appointment Date:04/23/2024 09:30:00 AM Scheduled Provider: Location:[facility] Appointment Type:URO Nurse Visit Appointment Date:05/21/2024 10:45:00 AM Scheduled Provider:Topher SAAVEDRA MD Location:[facility] Appointment Type:URO Office Visit [facility] Evaluation + Plan note Future Appointments Appointment Date:05/08/2024 09:00:00 AM Scheduled Provider: Location:[facility] Appointment Type:URO Nurse Visit Appointment Date:05/21/2024 10:45:00 AM Scheduled Provider:Topher SAAVEDRA MD Location:[facility] Appointment Type:URO Office Visit [facility] Evaluation + Plan note Future Appointments Appointment Date:08/09/2025 09:30:00 AM Scheduled Provider:Topher SAAVEDRA MD [facility] Type:URO Office Visit [facility] Evaluation note Diagnosis Polycythemia- Primary Polycythemia vera documented in this encounter [facility] [employer] Phone: evaluation note* Diagnosis Polycythemia- Primary Polycythemia vera documented in this encounter [facility] [employer] Phone: evaluation note* Diagnosis Dermatophytosis of nail- Primary Dystrophic nail Other specified disease of nail Diabetic polyneuropathy associated with type 2 diabetes mellitus (CMS/HCC) Nontraumatic amputation of foot, right ([facility]/HCC) Nontraumatic amputation of foot, left ([facility]/HCC) Acquired keratoderma documented in this encounter [facility] HealthcareEvaluation note* Diagnosis Acquired keratoderma- Primary Diabetic polyneuropathy associated with type 2 diabetes mellitus (CMS/HCC) Nontraumatic amputation of foot, left ([facility]/HCC) Nontraumatic amputation of foot, right ([facility]/HCC) documented in this encounter [facility] HealthcareEvaluation note* Diagnosis Type 2 diabetes mellitus with diabetic polyneuropathy, without long-term current use of insulin ([facility]/HCC)- Primary Acquired hallux malleus of left foot Acquired hammer toes of both feet Foot callus Corns and callosities Partial nontraumatic amputation of right foot ([facility]/HCC) Partial nontraumatic amputation of foot, left ([facility]/HCC) Venous stasis dermatitis of both lower extremities Type 2 diabetes mellitus with diabetic microalbuminuria, without long-term current use of insulin ([facility]) Microalbuminuria Proteinuria Essential hypertension ([facility]/HCC) Unspecified essential hypertension Mixed hyperlipidemia ([facility]/HCC) Mixed hyperlipidemia Adverse reaction to statin medication Former smoker Personal history of tobacco use, presenting hazards to health Morbid obesity ([facility]) Morbid obesity documented in this encounter [facility] HealthcareEvaluation note* Diagnosis Diabetic polyneuropathy associated with type 2 diabetes mellitus (CMS/HCC)- Primary Nontraumatic amputation of foot, left (CMS/HCC) Nontraumatic amputation of foot, right ([facility]/HCC) documented in this encounter [facility] HealthcareEvaluation note* Diagnosis Diabetic polyneuropathy associated with type 2 diabetes mellitus (CMS/HCC)- Primary Nontraumatic amputation of foot, left (CMS/HCC) Nontraumatic amputation of foot, right ([facility]/HCC) documented in this encounter [facility] HealthcareEvaluation note* Diagnosis Dyspepsia Dyspepsia and other specified disorders of function of stomach documented in this encounter [facility] HealthcareEvaluation note* Diagnosis Polycythemia- Primary Polycythemia vera documented in this encounter [facility] HealthEvaluation note* Diagnosis Encounter for Medicare annual wellness exam- Primary Advance directive in chart Encounter for screening for other disorder Screening for alcohol problem Screening for alcoholism Morbid (severe) obesity due to excess calories ([facility]) BMI 39.0-39.9,adult Type 2 diabetes mellitus with diabetic polyneuropathy, without long-term current use of insulin ([facility]) Type 2 diabetes mellitus with diabetic microalbuminuria, without long-term current use of insulin ([facility]) Type 2 diabetes mellitus with foot ulcer (CODE) ([facility]) Non-pressure chronic ulcer of other part of unspecified foot with unspecified severity ([facility]) Partial nontraumatic amputation of right foot ([facility]) Partial nontraumatic amputation of foot, left ([facility]) Atherosclerosis of [place] coronary artery of [place] heart without angina pectoris ([facility]) History of myocardial infarction ([facility] Mixed hyperlipidemia ([facility]) Mixed hyperlipidemia Adverse reaction to statin medication Primary open angle glaucoma of both eyes, unspecified glaucoma stage ([facility]) documented in this encounter [facility] HealthcareEvaluation note* Diagnosis Dyspepsia Dyspepsia and other specified disorders of function of stomach Essential hypertension ([facility]) Unspecified essential hypertension Microalbuminuria Proteinuria Mixed hyperlipidemia ([facility]) Mixed hyperlipidemia Type 2 diabetes mellitus with diabetic microalbuminuria, without long-term current use of insulin ([facility]) Type 2 diabetes mellitus with diabetic polyneuropathy, without long-term current use of insulin ([facility]) documented in this encounter [facility] HealthcareEvaluation note* Diagnosis Essential hypertension ([facility])- Primary Unspecified essential hypertension Microalbuminuria Proteinuria Type 2 diabetes mellitus with diabetic microalbuminuria, without long-term current use of insulin ([facility]) Type 2 diabetes mellitus with diabetic polyneuropathy, without long-term current use of insulin ([facility]) Mixed hyperlipidemia ([facility]) Mixed hyperlipidemia Adverse reaction to statin medication documented in this encounter [facility] HealthcareEvaluation note* Diagnosis Lumbar paraspinal muscle spasm Other symptoms referable to back Dyspepsia Dyspepsia and other specified disorders of function of stomach Type 2 diabetes mellitus with diabetic polyneuropathy, without long-term current use of insulin ([facility]) documented in this encounter [facility] HealthcareEvaluation note* Diagnosis Lumbar paraspinal muscle spasm Other symptoms referable to back [facility] noteNo assessment information available[facility] [employer] Work Phone: Evaluation note* Diagnosis Dyspepsia Dyspepsia and other specified disorders of function of stomach documented [facility] Narrative No data available for this section [facility] Hospital Discharge instructions No data available for this section [facility] progress note No data available for this section [facility] reason for referral (narrative)No reason for referral information availableWvumed[facility] [employer] Work Phone: Summary Purpose Family History No [...] FoundDocuments on File Type Date Recorded Patient Certified Fire Investigator Expl anation Advance Directives and Livin g Will Advance Directives and Livin g Will 08/31/2013 9:46 AM Power of Turret Punch Operator Power of Turret Punch Operator 08/31/2013 9:46 AM Latest Code Status on File Code Status Date Activated Date Inactivated Comments Full Code 08/06/2016 9:06 AM 08/09/2016 5:53 PM Full Code 08/04/2016 9:28 PM 08/06/2016 9:06 AM Full Code 05/15/2015 12:42 PM 05/19/2015 6:52 PM Full Code 05/12/2015 11:22 AM 05/15/2015 12:42 PM Full Code 05/13/2014 2:36 PM 05/13/2014 9:20 PM Documents on File Type Date Recorded Patient Certified Fire Investigator Expl anation ACP-Advance Directive ACP-Power of Turret Punch Operator ACP-Advance Directive 08/31/2013 9:46 AM ACP-Power of Turret Punch Operator 08/31/2013 9:46 AM Documents on File Type Date Recorded Patient Certified Fire Investigator Expl anation ACP-Advance Directive 08/31/2013 9:46 AM ACP-Power of Turret Punch Operator 08/31/2013 9:46 AM Latest Code Status [...] Documents on File Type Date Recorded Patient Certified Fire Investigator Expl anation Advance Directives and Living Will 11/20/2019 2018-05-09 Living Wi ll Advance Directives and Living Will 11/20/2019 2018-05-09 Power Of Turret Punch Operator Documents on File Type Date Recorded Patient Certified Fire Investigator Expl anation ACP-Power of Turret Punch Operator 08/31/2013 9:46 AM ACP-Advance Directive 08/31/2013 [...] section and content) DATE CREATED AUTHOR 11/24/2017 [facility] DATE CREATED AUTHOR AUTHOR'S ORGANIZ ATION 03/15/2018 [facility] DATE CREATED AUTHOR AUTHOR'S ORGANIZ ATION 09/26/2021 [facility] DATE CREATED AUTHOR AUTHOR'S ORGANIZ ATION 11/13/2022 [facility] DATE CREATED AUTHOR AUTHOR'S ORGANIZ ATION 07/07/2024 [facility] DATE CREATED AUTHOR AUTHOR'S ORGANIZ ATION 09/14/2024 [facility] DATE CREATED AUTHOR AUTHOR'S ORGANIZ ATION 09/19/2024 [facility] EPIC DATE CREATED AUTHOR AUTHOR'S ORGANIZ ATION 01/08/2025 [facility] DATE CREATED AUTHOR AUTHOR'S ORGANIZ ATION 01/11/2025 [facility] DATE CREATED AUTHOR AUTHOR'S ORGANIZ ATION 02/10/2025 [facility] DATE CREATED AUTHOR AUTHOR'S ORGANIZ ATION 02/16/2025 Pathology Gabriel wel[facility] Care Team (unrecognized sect ion and content) Bridge Worker Apprentice Relationship Specialty Start Date End Date Jordan Duncan MD PCP - General 07/25/19 Bridge Worker Apprentice Relationship Specialty Start Date End Date Jordan Duncan MD [address] [place] [address] PCP - General Family Medicine 10/25/22 Mitch Mello MD [address] [place] [address] Referring Physician Cardiology 05/17/23 Jr. Anuja Henson DO [address] [address] Referring Physician Orthopaedic Surgery 05/17/23 Brody Ibrahim DPM [address] [place] [address] Referring Physician Podiatry 05/17/23 Bridge Worker Apprentice Relationship Specialty Start Date End Date Jordan Duncan MD [address] [phone] PCP - General Family Medicine 10/25/22 Mitch Mello MD [address] [place] [address] Referring Physician Cardiology 05/17/23 Jr. Anuja Henson DO [address] [address] Referring Physician Orthopaedic Surgery 05/17/23 Brody Ibrahim DPM [address] [place] [address] Referring Physician Podiatry 05/17/23 Bridge Worker Apprentice Relationship Specialty Start Date End Date Jordan Duncan MD [address] [place] [address] (Fax) PCP - General Family Medicine 10/25/22 Jordan Duncan MD [address] [place] [address] PCP - ACO Reach 08/05/23 Mitch Mello MD [address] [place] [address] Referring Physician Cardiology 05/17/23 Jr. Anuja Henson DO [address] [place] [address] Referring Physician Orthopaedic Surgery 05/17/23 Brody Ibrahim DPM [address] [place] [address] Referring Physician Podiatry 05/17/23 Bridge Worker Apprentice Relationship Specialty Start Date End Date Jordan Duncan MD [address] [place] [address] (Fax) PCP - General Family Medicine 10/25/22 Jordan Duncan MD [address] [place] [address] (Fax) PCP - ACO Reach 08/05/23 Mitch Mello MD [address] [place] [address] Referring Physician Cardiology 05/17/23 Jr. Anuja Henson DO [address] [facility] [address] [place] [address] Referring Physician Orthopaedic Surgery 05/17/23 Brody Ibrahim DPM [address] [place] [address] Referring Physician Podiatry 05/17/23 Bridge Worker Apprentice Relationship Specialty Start Date End Date Jordan Duncan MD [address] [place] [address] (Fax) PCP - General Family Medicine 10/25/22 Jordan Duncan MD [address] [phone] (Fax) PCP - ACO Reach 08/05/23 Mitch Mello MD [address] [place] [phone] Referring Physician Cardiology 05/17/23 Jr. Anuja Henson DO [address] [address] Referring Physician Orthopaedic Surgery 05/17/23 Brody Ibrahim DPM [address] [place] [address] Referring Physician Podiatry 05/17/23 Bridge Worker Apprentice Relationship Specialty Start Date End Date Jordan Duncan MD [address] [place] [address] (Fax) PCP - General Family Medicine 10/25/22 Jordan Duncan MD [address] [place] [address] PCP - ACO Reach 08/05/23 Mitch Mello MD [address] [place], [place] [phone] Referring Physician Cardiology 05/17/23 Jr. Anuja Henson DO [address] [address] Referring Physician Orthopaedic Surgery 05/17/23 Brody Ibrahim DPM [address] [place] [address] Referring Physician Podiatry 05/17/23 Bridge Worker Apprentice Relationship Specialty Start Date End Date Jordan Duncan MD [address] [place] [address] (Fax) PCP - General Family Medicine 10/25/22 Jordan Duncan MD [address] [place] [address] (Fax) PCP - ACO Reach 08/05/23 Mitch Mello MD [address] [place] [address] Referring Physician Cardiology 05/17/23 Jr. Anuja Henson DO [address] [address] Referring Physician Orthopaedic Surgery 05/17/23 Brody Ibrahim DPM [address] [place] [address] Referring Physician Podiatry 05/17/23 Bridge Worker Apprentice Relationship Specialty Start Date End Date Jordan Duncan MD [address] [place] [address] (Fax) PCP - General Family Medicine 10/25/22 Jordan Duncan MD [address] [place] [address] (Fax) PCP - ACO Reach 08/05/23 Mitch Mello MD [address] [place] [address] Referring Physician Cardiology 05/17/23 Jr. Anuja Henson DO [address] [address] Referring Physician Orthopaedic Surgery 05/17/23 Brody Ibrahim DPM [address] [place] [address] Referring Physician Podiatry 05/17/23 Bridge Worker Apprentice Relationship Specialty Start Date End Date Jordan Duncan MD [address] [place] [address] (Fax) PCP - General Family Medicine 10/25/22 Jordan Duncan MD [address] [place] [phone] (Fax) PCP - ACO Reach 08/05/23 Mitch Mello MD [address] [place] [address] Referring Physician Cardiology 05/17/23 Jr. Anuja Henson DO [address] [place] [address] Referring Physician Orthopaedic Surgery 05/17/23 Brody Ibrahim DPM [address] [place] [address] Referring Physician Podiatry 05/17/23 Bridge Worker Apprentice Relationship Specialty Start Date End Date Jordan Duncan MD [address] [place] [phone] (Fax) PCP - General Family Medicine 10/25/22 Jordan Duncan MD [address] [place] [address] (Fax) PCP - ACO Reach 08/05/23 Mitch Mello MD [address] [place] [address] Referring Physician Cardiology 05/17/23 Jr. Anuja Henson DO [address] [facility] [address] [place] [address] Referring Physician Orthopaedic Surgery 05/17/23 Brody Ibrahim DPM [address] [place] [address] Referring Physician Podiatry 05/17/23 Bridge Worker Apprentice Relationship Specialty Start Date End Date Jordan Duncan MD [address] [place] [address] (Fax) PCP - General Family Medicine 10/25/22 Jordan Duncan MD [address] [place] [address] PCP - ACO Reach 08/05/23 Mitch Mello MD [address] [place], [place] [phone] Referring Physician Cardiology 05/17/23 Jr. Anuja Henson DO [address] [place] [address] [place] [address] Referring Physician Orthopaedic Surgery 05/17/23 Brody Ibrahim DPM [address] [place], [place] [address] Referring Physician Podiatry 05/17/23 Bridge Worker Apprentice Relationship Specialty Start Date End Date Jordan Duncan MD [address] [place] [address] PCP - General Family Medicine 10/25/22 Jordan Duncan MD [address] [place] [address] PCP - ACO Reach 08/05/23 Mitch Mello MD [address] [place] [address] Referring Physician Cardiology 05/17/23 Jr. Anuja Henson DO [address] [facility] [address] [place] [address] Referring Physician Orthopaedic Surgery 05/17/23 Brody Ibrahim DPM [address] [place] [address] Referring Physician Podiatry 05/17/23 Bridge Worker Apprentice Relationship Specialty Start Date End Date Jordan Duncan MD [address] [place] [address] (Fax) PCP - General Family Medicine 10/25/22 Jordan Duncan MD [address] [place] [address] (Fax) PCP - ACO Reach 08/05/23 Mitch Mello MD [address] [place] [address] Referring Physician Cardiology 05/17/23 Jr. Anuja Henson DO [address] [place] [address] Referring Physician Orthopaedic Surgery 05/17/23 Brody Ibrahim DPM [address] [place] [address] Referring Physician Podiatry 05/17/23 Bridge Worker Apprentice Relationship Specialty Start Date End Date Jordan Duncan MD (Fax) PCP - General 07/25/19 Bridge Worker Apprentice Relationship Specialty Start Date End Date Jordan Duncan MD [address] [place] [address] (Fax) PCP - General Family Medicine 10/25/22 Jordan Duncan MD [address] [place] [address] (Fax) PCP - ACO Reach 08/05/23 Mitch Mello MD [address] [place] [address] Referring Physician Cardiology 05/17/23 Jr. Anuja Henson DO [address] [facility] [address] [place] [address] Referring Physician Orthopaedic Surgery 05/17/23 Brody Ibrahim DPM [address] [place] [address] Referring Physician Podiatry 05/17/23 Bridge Worker Apprentice Relationship Specialty Start Date End Date Jordan Duncan MD [address] [facility] 100 [place] [address] PCP - General Family Medicine 10/25/22 Jordan Duncan MD [address] [facility] 100 [place] [address] PCP - ACO Reach 08/05/23 Jr. 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 Anuja Henson DO [address] [place] [address] Referring Physician Orthopaedic Surgery 05/17/23 Brody Ibrahim DPM [address] [place] [address] Referring Physician Podiatry 05/17/23 Anuja Huddleston MD [address] [place] [phone] (Fax) Referring Physician Family Medicine 07/25/24 Topher Saavedra MD [address] [place] [address] Referring Physician Urology 07/25/24 Kitty Edmond, CATHERINE [address] [place] [address] Referring Physician Optometry 07/25/24 Korin Kraft RN [address] [place] [address] Registered Nurse Family Medicine 12/24/24 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 Anuja Henson DO [address] [place] [address] Referring Physician Orthopaedic Surgery 05/17/23 Brody Ibrahim DPM [address] [facility] [place] [address] Referring Physician Podiatry 05/17/23 Anuja Huddleston MD [address] [place] [address] Referring Physician Family Medicine 07/25/24 Topher Saavedra MD [address] [place] [address] Referring Physician Urology 07/25/24 Kitty Edmond OD [address] [place] [address] Referring Physician Optometry 07/25/24 Korin Kraft RN [address] [place] [address] Registered Nurse Family Medicine 12/24/24 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 Anuja Henson DO [address] [facility] [address] [place] [address] Referring Physician Orthopaedic Surgery 05/17/23 Brody Ibrahim DPM [address] [facility] [place] [address] Referring Physician Podiatry 05/17/23 Anuja Huddleston MD [address] [place] [address] Referring Physician Family Medicine 07/25/24 Topher Saavedra MD [address] [place], [place] [phone] Referring Physician Urology 07/25/24 Kitty Edmond OD [address] [facility] [place] [address] Referring Physician Optometry 07/25/24 Team Status: Inactive [...] Advice Only 04/09/2024 orthotics 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 [...] BE BASED ON THE PRIMARY CLINICAL RECORDS. [employer] provides no warranty or guarantee of the accuracy or completeness of information in this document.
== END 2025-03-13 09:37 | disposition home or self-care (01) ==
LOC: WC 09:36
PROVIDERS: PCP Family Medicine; Visit Provider Physician Assistant
DX: L84 Corns and callosities (principal); E11.40 Type 2 diabetes mellitus with diabetic neuropathy, unspecified
CPT/HCPCS: G0463

== ENCOUNTER 2025-04-10 09:39 | Outpatient (OUT) | payer MEDICARE, SELFPAY ==
--- OUTSIDE RECORDS SUMMARY | 2025-04-09 08:30 | XMS_ITS | Encounter Summary ---
Author Organization [facility] Address [address] [place] [address] Care Team Providers Care Well Drill Operator Rotary Drill Name Role Phone Jordan Wong MD Primary Care Provider [phone] Jr. Julio Hi DO Unavailable [phone] Alberto Ibrahim DPM Unavailable [phone] Jordan Wong MD Unavailable [phone] Julio Huddleston MD Unavailable [phone] Hudson Stevenson MD Unavailable [phone] Kitty Edmond OD Unavailable Reason for Visit * ReasonCommentsDiabetic ShoesPt is here today for measuring and ordering of extra depth diabetic shoes. BS: 127 A1C: 6.4 Encounter Details DateTypeDepartmentCare Team (Latest Contact Info)Feixhvzohqr57/04/2025 8:30 AM ESTOffice Visit [facility] [address] [place] [address] Alberto Ibrahim DPM [address] [place] [address] Diabetic polyneuropathy associated with type 2 diabetes mellitus (HCC) (Primary Dx); Nontraumatic amputation of foot, left (HCC); Nontraumatic amputation of foot, right (HCC) Social History Tobacco UseTypesPacks/DayYears UsedDateSmoking Tobacco: FormerCigarettesQuit: 2013Smokeless Tobacco: Never Tobacco Cessation:Counseling Given: Not Answered Comments:Last smoked : > 10 years Alcohol UseStandard Drinks/WeekCommentsYes2 (1 standard drink = 0.6 oz pure alcohol)1-2 drinks 2-4 x a month in the past year, Caffeine intake: 1-2 cups per day coffeeAUDIT-CAnswerDate RecordedQ1: How often do you have a drink containing alcohol?2-4 times a month04/12/2023Q2: How many drinks containing alcohol do you have on a typical day when you are drinking?1 or Q3: How often do you have six or more drinks on one occasion?Never04/12/2023HQ-2AnswerDate Recorded Patient Health Questionnaire-2 [id number]te RecordedWhat is the highest level of school you have completed or the highest degree you have received?High school zmzrojwc27/16/2023Sex and Gender InformationValueDate RecordedSex Assigned at BirthNot on fileLegal YaxCjxu0008/18/2022 8:05 PM EDT Gender PddtooqnLreg10/15/2023 8:05 PM EDTSexual OrientationNot on filedocumented as of this encounter Last Filed Vital Signs Vital SignReadingTime TakenCommentsBlood Pressure--Pulse--Temperature-- Respiratory Rate--Oxygen Saturation--Inhaled Oxygen Concentration--Oyprxu918 kg (347 lb)04/09/2025 8:32 AM CKFGeipcv560.1 cm (6' 6 )04/09/2025 8:32 AM ESTBody Mass Index40. 8:32 AM ESTdocumented in this encounter Progress Notes * Alberto Ibrahim DPM - 04/09/2025 8:30 AM EST Images from the original note were not included. Subjective Patient ID: [place] Miguel Jennings is a 75 y.o. male who presents for Diabetic Shoes (Pt is here today for measuring and ordering of extra depth diabetic shoes. /BS: 127 A1C: 6.4). HPI Presents for measurements and foam impressions of both feet; to proceed with a new pair of therapeutic footwear and custom molded multi-density, multi-laminate accommodative orthoses. 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 Boss). Patient is well satisfied with previous therapeutic footwear and accommodative orthoses; noting progressive deterioration of current footwear and orthoses; some degree of formation as well as breakage of lacing. Risk factors: Type II diabetes. Diabetic peripheral [...] 50 MCG (2000 UT) tablet, Take by mouth, Disp: , Rfl: cyclobenzaprine (Flexeril) 10 MG tablet, Take 1 tablet (10 mg) by mouth 3 (three) times a day as needed for muscle spasms, Disp: 270 tablet, Rfl: 0 diclofenac (Voltaren) 75 MG EC tablet, Take 1 tablet (75 mg) by mouth 2 (two) times a day as needed(pain) Do not crush, chew, or split., Disp: 180 tablet, Rfl: 3 famotidine (Pepcid) 20 MG tablet, Take 1 tablet (20 mg) by mouth in the morning and 1 tablet (20 mg) before bedtime., Disp: 180 tablet, Rfl: 1 gabapentin (Neurontin) 100 MG capsule, 2 capsules in Am 3 capsules at bedtime, Disp: 450 capsule, Rfl: 1 Inclisiran Sodium (LEQVIO SC), Inject under the skin, Disp: , Rfl: isosorbide mononitrate ER (Imdur) 30 MG 24 hr tablet, Take 30 mg by mouth Daily, Disp: , Rfl: latanoprost (Xalatan) 0.005 % ophthalmic solution, , Disp: , Rfl: losartan (Cozaar) 50 MG tablet, Take 1 tablet (50 mg) by mouth Daily, Disp: 90 tablet, Rfl: 1 metoprolol tartrate (Lopressor) 100 MG tablet, Take 1 tablet (100 mg) by mouth Daily in the MorningAND 0.5 tablets (50 mg) in the evening. 1 tablet in AM. 0.5 tablet in PM., Disp: 135 tablet, Rfl: 1 Multiple Vitamin (multivitamin) capsule, Take 1 capsule by mouth Daily, Disp: , Rfl: oxybutynin XL (Ditropan-XL) 10 MG 24 hr tablet, Take 10 mg by mouth Daily, Disp: , Rfl: pioglitazone (Actos) 30 MG tablet, Take 1 tablet (30 mg) by mouth in the morning., Disp: 90 tablet,Rfl: 1 Simbrinza 1-0.2 % suspension, every 8 (eight) hours, Disp: , Rfl: tamsulosin (Flomax) 0.4 MG 24 hr capsule, Take 0.4 mg by mouth in the morning and 0.4 mg in the evening. Take after meals., Disp: , Rfl: timolol (Timoptic) 0.5 % ophthalmic solution, Administer 1 drop into both eyes in the morning and 1drop before bedtime., Disp: , Rfl: Allergies Clindamycin, Ezetimibe, Glipizide, Metformin, Pravastatin, and Rosuvastatin Past Surgical History Past Surgical History: Procedure Laterality Date BACK SURGERY 2010 [facility] H[facility] 4 stents Geraldo Stafford - 1997 OTHER SURGICAL HISTORY rectal cancer; surgery, chemo [place] and radiation [place]. OTHER SURGICAL HISTORY 09/30/2022 Dorsal Slit, RADHA Stevenson TOE AMPUTATION Right 01/01/2025 right delayed primary closure of fourth toe ulcer and fifth toe amputation TOTAL KNEE ARTHROPLASTY Right 2014 Alexsander Brennan TOTAL KNEE ARTHROPLASTY Left 05/25/[address] HI Family History Family History Problem Relation Name Age of Onset Heart disease Mother Diabetes Mother Heart disease Father Diabetes Brother Colon cancer Brother Objective Physical Exam General assessment: Alert and oriented. Pleasant disposition. Presents wearing current Comfort therapeutic footwear with custom orthoses; notably deteriorated. Vascular: DP 1/4 bilateral. PT 1/4 bilateral. CFT brisk all digits. Gradient temperature: Warm-cool bilateral.. Unremarkable for ankle swelling. Neurologic: Tactile and light touch sensation is compromised and absent over the digital and forefoot areas. Vibratory sensation: Absent at the MTP joints Unable to localize 5.07 monofilament all points plantarly. Orthopedic: Status post partial fifth ray resection bilateral. Status post amputation 5th digit right foot. Multiple digital contractures; non-reducible 2nd digit and [...] post partial 5th ray amputation bilateral (Q7). Status post amputation 5th digit right foot (Q7). (December 2024). Stable hyperkeratotic lesions bilateral forefoot. Plan: Diabetic assessment and education relative to the high-risk foot. Indications for therapeutic footwear and multi-laminate, multi-density custom accommodative orthoses: As noted above: Longstanding diabetic peripheral neuropathy with loss of protective sensation andstatus post partial 5th ray amputations bilateral. Accommodate forefoot and digital deformities. Offloading of forefoot and digital structures; dispersion of peak plantar pressures; reducing potential for skin breakdown, subsequent neuropathic ulceration and any related complications. Accommodate swelling as needed. Allow patient to maintain current ADLs and physical activity; reducing risk profile. Measurements obtained in the weight-bearing position, utilizing [employer] Pharm[employer]ock device. Foam impressions obtained simulated weight-bearing. Patient education relative to appropriate sizing and footwear selection. Rx completed. Goals, objectives and rationale reviewed. Follow up: Accordingly for fitting. Procedure: This note was created with the assistance of a speech recognition program. While intending to generate a timely document that accurately reflects the content of the visit, no guarantee can be provided that every grammatical or spelling mistake has been or will be identified or corrected. Thank you for your understanding. Alberto Ibrahim DPM documented in this encounter Plan of Treatment DateTypeDepartmentCare Team (Latest Contact Info)Xhfzpcqwznt46/08/2026 9:00 AM EDTOffice Visit [facility] [place] [address] [place] [phone] Jordan Wong MD 112 [facility] 100 [place] [address] (Fax) documented as of this encounter Visit Diagnoses Diagnosis Diabetic polyneuropathy associated with type 2 diabetes mellitus (HCC)- Primary Nontraumatic amputation of foot, left (HCC) Nontraumatic amputation of foot, right (HCC) documented in this encounter Additional Health Concerns AssessmentNoted TimePHQ-9 Depression Total Score: 9:00 AM EST documented as of this encounter Care Teams Team MemberRelationshipSpecialtyStart DateEnd Date Jordan Wong MD 112 [facility] 100 [place] [address] (Fax) PCP - GeneralFamily Medicine10/25/22 Jordan Wong MD 112 [facility] 100 [place] [address] (Fax) PCP - ACO Reach08/05/23 Jr. Julio Hi DO 112 [facility] 150 [place] [address] Referring PhysicianOrthopaedic Seutzca29/12/23 Alberto Ibrahim DPM [address] [place] [address] Referring IywpiwxugZrxvxnxx96/12/23 Julio Huddleston MD [address] [place] [address] (Fax) Referring PhysicianFamily Medicine07/25/24 Hudson Stevenson MD [address] [place] [address] Referring PhysicianUrolog07/25/24 Kitty Edmond OD [address] [place] [address] Referring PhysicianOptometry07/25/24documented as of this encounter
--- OUTSIDE RECORDS SUMMARY | 2025-04-10 09:42 | XMS_ITS | Encounter Summary ---
Author Organization [facility] Address [address] [facility] [place] [address] Care Team Providers Care Support Assistant Name Role Phone Jordan Wong MD Primary Care Provider Jr. Julio Henson DO Unavailable [phone] Alberto Ibrahim DPM Unavailable [phone] Jordan Wong MD Unavailable [phone] Julio Huddleston MD Unavailable [phone] Hudsno Steevnson MD Unavailable [phone] Kitty Edmond OD Unavailable Encounter Details DateTypeDepartmentCare Team (Latest Contact Info)Gnvhbewwkyd08/04/2025Travel Social History Tobacco UseTypesPacks/DayYears UsedDateSmoking Tobacco: FormerCigarettesQuit: 2013Smokeless Tobacco: Never Comments:Last smoked : > 10 [...] on one occasion?Never04/12/2023HQ-2AnswerDate Recorded Patient Health Questionnaire-2 Udgpj595EducationAnswerDate RecordedWhat is the highest level of school you have completed or the highest degree you have received?High school pshrlkus10/16/2023Sex and Gender InformationValueDate RecordedSex Assigned at BirthNot on fileLegal AkmKvzi4208/18/2022 8:05 PM EDT Gender DfzbawrvEgxg28/15/2023 8:05 PM EDTSexual OrientationNot on filedocumented as of this encounter Plan of Treatment DateTypeDepartmentCare Team (Latest Contact Info)Gdajvnmlqiw47/08/2026 9:00 AM EDTOffice Visit [facility] [place] [facility] [address] [place] [address] Jordan Wong MD [address] [place] [address] (Fax) documented as of this encounter Visit Diagnoses Not on filedocumented in this encounter Additional Health Concerns AssessmentNoted TimePHQ-9 Depression Total Score: 9:00 AM EST documented as of this encounter Care Teams Team MemberRelationshipSpecialtyStart DateEnd Date Jordan Wong MD [address] [place] [address] (Fax) PCP - GeneralFamily Medicine10/25/22 Jordan Wong MD [address] [place] [address] (Fax) PCP - ACO Reach08/05/23 Jr. Julio Henson DO [address] [place] [address] Referring PhysicianOrthopaedic Bgdauaw74/12/23 Alberto Ibrahim DPM [address] [place] [address] Referring AvfkezjmbEdplmrcw70/12/23 Julio Huddleston MD [address] [place] [address] Referring PhysicianFamily Medicine07/25/24 Hudson Stevenson MD [address] [place] [address] Referring PhysicianUrolog07/25/24 Kitty Edmond OD [address] [place] [address] Referring PhysicianOptometry07/25/24documented as of this encounter
--- OUTSIDE RECORDS SUMMARY | 2025-04-10 09:42 | XMS_ITS ---
Author Organization [facility] Address [address] [facility], [address] [place] [address] Care Team Providers Care Paid Search Manager Name Role Phone Jordan Wong MD Primary Care Provider Active Problems ProblemNoted DateDiagnosed DateAcute osteomyelitis of metatarsal bone of right foot - iscbsw9508/05/2016Morbid xamflhi9908/05/2016Type 2 diabetes mellitus with neurologic uanlncsgurik99/01/2017Diabetic peripheral szihhytbks42/01/2017 Cellulitis and abscess of toe of right foot08/04/2016Obstructive sleep apnea jibaapbo70/27/2016S/P JORY - LCX & RCA ([id number]-Zf. kabour)05/13/2014S/P cardiac cath-05/13/14-Dr. landrum05/13/2014 Overview (05/13/2014): Patent stents HTN (hypertension)05/13/20140589Rflhxvmpqmitgq09/08/2624Arfiwizuudpf31/31/2014nal yyuxpf8603/15/2012 Current Treatment and Therapy Plans No current plan information found. Other Current Plans Therapeutic Phlebotomy* Plan Start Date:10/18/2024 Plan Provider:Newton Stein MD Linked Problems Polycythemia Treatment Medications No medications scheduled. Past Treatment and Therapy Plans Resolved Problems ProblemNoted DateDiagnosed DateResolved DateScreening for colorectal cancer
--- OUTSIDE RECORDS SUMMARY | 2025-04-10 09:42 | XMS_ITS | Clinical Summary ---
Author Organization [facility] Address [address] [place] [address] Care Team Providers Care Hearing Therapy Teacher Name Role Phone Jordan Wong MD Primary Care Provider [phone] Allergies Active AllergyReactionsCriticalityNoted KcndZgjkziydIaxztclbnxq56/27/2022 GqwkkbkjmXxcfa02/18/3332QngpvpnygRzgbd54/18/8822OgioovpldyuQrskd67/18/2022 OdavnogtgwjyKezrl06/18/8534IovmgentzGsaeq22/18/2022 Medications MedicationSigDispense QuantityRefillsLast FilledStart DateEnd DateStatus aspirin 81 mg EC tablet Take 1 tablet every day by oral route.Active cholecalciferol (Vitamin D-3) 25 MCG (1000 UT) capsule Take 3 capsules every day by oral route.Active niacin 500 mg tablet Take 1 tablet by mouth once daily as directed.Active oxybutynin XL (Ditropan-XL) 5 mg 24 hr tablet Take 1 tablet by mouth in the morning.Active testosterone cypionate (Depo-Testosterone) 200 mg/mL injection INJECT 400MG INTRAMUSCULARLY EVERY 4 WEEKSActive losartan (Cozaar) 50 mg tablet Take 50 mg by mouth in the morning.Active pioglitazone (Actos) 30 mg tablet Take 30 mg by mouth in the morning.Active gabapentin (Neurontin) 300 mg capsule Take 300 mg by mouth twice a day.Active evolocumab (Repatha SureClick) 140 mg/mL pen injector Indications:Hyperlipidemia, unspecified hyperlipidemia typeInject 1 Pen under the skin every 14 (fourteen) days. 6 mL ctive metoprolol tartrate (Lopressor) 100 mg tablet Indications:PalpitationsTake 100 mg in am and 50 mg in pm every day 135 tablet ctive famotidine (Pepcid) 20 mg tablet Take 20 mg by mouth twice a day.12/13/2023ctive diclofenac (Voltaren) 75 mg EC tablet if needed.06/20/2023ctive tamsulosin (Flomax) 0.4 mg 24 hr capsule Take 0.4 mg by mouth twice a day.01/11/2024ctive isosorbide mononitrate ER (Imdur) 30 mg 24 hr tablet Indications:Benign hypertensive heart disease without congestive heart failure Take 1 tablet (30 mg) by mouth once daily as directed. Do not crush or chew. 90 tablet /ctive Active Problems ProblemNoted DateDiagnosed DateOAB (overactive bladder)07/16/2024Phimosis cquired hammer deformity of great toe Acquired hammer toes of both feetPH with urinary hponmqxwgbd89hronic ecrrmbruqfho79Elevated PSAHistory of colon mioyfg47Hx of usp use of blood avvemqtg14Non-pressure chronic ulcer of other part of unspecified foot with unspecified ywpflsho08 Buxnpolc50Urinary vjzafey37Urinary frequency olyneuropathy due to type 2 diabetes bgnjzkof27/14/2022 04/08/2023Status post total left knee qkfsnocltlz00/29/202111/ifficulty hsqjmih39/resence of both artificial knee blbhhy7405/25/2021 Decreased testosterone level/ependence on other enabling machines and vtsbtit44/08/2022Osteoarthritis of knee02/25/2021Internal derangement of left knee/hronic pain Drug-induced icrvndjn52Foot xxzhfy4309/23/2020mputation of foot dverse reaction to statin fydblioirz55 Chronic kidney disease, stage 2 (mild)Microalbuminuria oronary ycjtjkwpxyfcimta79/14/2018 Assessment & Plan (03/23/2022 12:46 PM EDT): No concerning symptoms today Continue GDMT- ASA, toprol, pt is intolerant of Statin and zetia in the past- will need to considerPCSK9 inhibitors. Pt has tried taking crestor, pravastatin, zetia- and was intolerant to statins and zetia in the past. History of myocardial ittaxrtdob33/14/2018 Assessment & Plan (03/23/2022 11:49 AM EDT): stable Sdngiveobjekke68/14/2018 Assessment & Plan (03/23/2022 11:48 AM EDT): LDL remains not at goal- need to consider PCSK9 inhibitors. Hypertensive khzowjlz16/14/2018 Assessment & Plan (03/23/2022 11:49 AM EDT): I believe there is a white coat syndrome component to b/p today in office, at home typically 130/80or less per his b/p log Continue toprol and losartan Renal function normal Type 2 diabetes /14/2018 Assessment & Plan (03/23/2022 11:49 AM EDT): A1C currently 5.9 and well controlled- f/u with PCP Old myocardial vtkjqraxjy84iabetic renal ggvdgmr7312/22/2017 04/08/2023Former tmjpfl52therosclerosis of coronary artery without angina dnluuntk53Fatty liver Testicular rjmrqkybjxmm81laucoma Testosterone jshvklehrj24cute osteomyelitis of metatarsal bone of right footMorbid pkygjhb70 Cellulitis and abscess of toe of right footiabetic peripheral nxsbapszfu62Type 2 diabetes mellitus with neurologic lgcuxhbjzgrh26/01/2017Obstructive sleep apnea xpxydvlz27/27/2016 04/08/2023S/P drug eluting coronary stent nnywwnyvb38S/P cardiac cath Overview (04/08/2023): Patent stents Caiswxdhsoya53nal Encounters DateTypeDepartmentCare FdhhLsvudekrbqy50/05/2025Telephone [facility] at [address] [address] Maria G Marlow MA from Last 3 Months Immunizations ImmunizationAdministration DatesNext DueInfluenza, High Dose Seasonal, Preservative Free03/05/2019,03/03/2018Influenza, Seasonal, Quadrivalent, Mxzryzsvkc61/01/2021,03/22/2020Influenza, Tfgfsiqlwth01/01/2016Influenza, injectable, quadrivalent, preservative free04/06/2017,01/23/2016Influenza, seasonal, nhmzowqpyj97/18/2014,04/06/2013Novel eelrolmhg-Y1X6-56, preservative-free04/21/2009Pneumococcal Conjugate PCV 13003/03/2018Pneumococcal Polysaccharide FQE425703/05/2019,12/04/2016Unspecified Sars-Cov-2 Vaccination 06/18/2021,08/28/2020,08/08/2020Zoster, live12/04/2016,04/06/2013 Family History Medical HistoryRelationNameCommentsHeart diseaseFatherHeart diseaseMother RelationNameStatusCommentsFatherDeceasedMotherDeceased Social History Tobacco UseTypesPacks/DayYears UsedDateSmoking Tobacco: FormerCigarettes Smokeless Tobacco: Never Tobacco Cessation:Counseling Given: Not Answered Alcohol UseStandard Drinks/WeekCommentsYes0 (1 standard drink = 0.6 oz pure alcohol)occasionalUT Safety & EnvironmentAnswerDate RecordedFear of Current or Ex-PartnerNot on file07/28/2023Emotionally AbusedNot on file07/28/2023hysically AbusedNot on file07/28/2023Sexually AbusedNot on file07/28/2023hysically or Sexually AbusedNot on file07/28/2023Sex and Gender InformationValueDate Recorded Sex Assigned at RwwafWuol46/09/2025 1:25 PM EDTLegal KgsSnkm4312/03/2021 12:08 AM EDTGender FtyxbfhsSzze66/09/2025 1:25 PM EDTSexual OrientationHeterosexual or Pzgqzybc07/09/2025 1:25 PM EDT Last Filed Vital Signs Vital SignReadingTime TakenCommentsBlood Qmucsoef858/80012/21/2024 10:35 AM EDT Tjvyv207412/21/2024 10:35 AM EDTTemperature--Respiratory Rate--Oxygen Saturation 94%12/21/2024 10:35 AM EDTInhaled Oxygen Concentration--Muyfmg490 kg (351 lb) 12/21/2024 10:35 AM HGHApgupq220.1 cm (6' 6 )12/21/2024 10:35 AM EDTBody Mass Index40.56012/21/2024 10:35 AM EDT Plan of Treatment Health MaintenanceDue DateLast DoneCommentsCT Oejtwxvumvmm1952FIT-DNA 1950FIT1950FOBT1950Medicare Annual Wellness (AWV)1950 Knakcpjvyqnhh1950iabetes: Retinopathy Bignoqshd77/07/1962Depression Wajvrgpsp15/07/1964Adult Ssrjrsu9002/10/1974Zoster Vaccines (1 of 2)02/10/2002 12/04/2016, 04/06/2013Fall Risk Wmrvcebhk86/07/2017Diabetes: Hemoglobin A1C 504/02/2025, 03/21/2024, 3COVID-19 Vaccine ( season)/, 03/23/2022, 03/23/2022, Additional history exists Influenza Vaccine (#1)/, 02/28/2023, 04/16/2022, Additional history bfxtmcVhqwcnxpbbl57olorectal Cancer Screening 1Pneumococcal Vaccine: 50+ GqqlkIbjteqwzb91/01/2019, 03/05/2019, 03/03/2018, Additional history existsHIB VaccinesAged OutNo longer eligible based on patient's age to complete this topicHPV VaccinesAged OutNo longer eligible based on patient's age to complete this topicIPV VaccinesAged OutNo longer eligible based on patient's age to complete this topicMeningococcal B VaccineAged OutNo longer eligible based on patient's age to complete this topic Meningococcal VaccineAged OutNo longer eligible based on patient's age to complete this topicRotavirus VaccinesAged OutNo longer eligible based on patient's age to complete this topic Insurance Care Teams Team MemberRelationshipSpecialtyStart DateEnd Date Jordan Wong MD [address] [place] [address] [facility]03/23/22
--- OUTSIDE RECORDS SUMMARY | 2025-04-10 09:42 | XMS_ITS | Encounter Summary ---
Author Organization [facility] Address [address] [place] [address] Care Team Providers Care Oyster Shucker Name Role Phone oJrdan Wong MD Primary Care Provider [phone] Jr. Julio Henson DO Unavailable [phone] Alberto Ibrahim DPM Unavailable Jordan Wong MD Unavailable [phone] Julio Huddleston MD Unavailable Hudson Stevenson MD Unavailable Kitty Edmond OD Unavailable Encounter Details DateTypeDepartmentCare Team (Latest Contact Info)Expgbgefare02/04/2025amboo flowsheet [facility] [address] [place] [phone] Alberto Ibrahim, DPM [address] [place], [place] [phone] Social History Tobacco UseTypesPacks/DayYears UsedDateSmoking Tobacco: FormerCigarettesQuit: [...] have six or more drinks on one occasion?Never3PHQ-2AnswerDate Recorded Patient Health Questionnaire-2 Ycjpg281EducationAnswerDate RecordedWhat is the highest level of school you have completed or the highest degree you have received?High school yuxwfdgl94/16/2023Sex and Gender InformationValueDate RecordedSex Assigned at BirthNot on fileLegal GkoJpvh8508/18/2022 8:05 PM EDT Gender MjsododeUcwe95/15/2023 8:05 PM EDTSexual OrientationNot on filedocumented as of this encounter Plan of Treatment DateTypeDepartmentCare Team (Latest Contact Info)Odznpgjnrss79/08/2026 9:00 AM EDTOffice Visit [facility] [place] [facility] [address] [place] [address] Jordan Wong MD [address] [place] [address] (Fax) documented as of this encounter Visit Diagnoses Not on filedocumented in this encounter Additional Health Concerns AssessmentNoted TimePHQ-9 Depression Total Score: 9:00 AM EST documented as of this encounter Care Teams Team MemberRelationshipSpecialtyStart DateEnd Jordan Wong MD [address] [place] [address] (Fax) PCP - GeneralFamily Medicine10/25/22 Jordan Wong MD [address] [place] [address] PCP - ACO Reach08/05/23 Jr. Julio Henson DO [address] [place] [address] Referring PhysicianOrthopaedic Juemyly10/12/23 Alberto Ibrahim DPM [address] [facility] [place] [address] Referring HctvfvnatVewvrmfo11/12/23 Julio Huddleston MD [address] [place] [phone] Referring PhysicianFamily Medicine07/25/24 Hudson Stevenson MD [address] [place] [address] Referring PhysicianUrolog07/25/24 Kitty Edmond OD [address] [facility] [place] [address] Referring PhysicianOptometry07/25/24documented as of this encounter
--- OUTSIDE RECORDS SUMMARY | 2025-04-10 09:42 | XMS_ITS | Encounter Summary ---
Author Organization [facility] Address [address] [facility] [place] [address] Care Team Providers Care Instructor Of Education Name Role Phone Jordan Wong MD Primary Care Provider [phone] Mitch Mello MD Unavailable [phone] Jr. Julio Henson DO Unavailable [phone] Alberto Ibrahim DPM Unavailable Jordan Wong MD Unavailable [phone] Julio Huddleston MD Unavailable Hudson Stevenson MD Unavailable Kitty Edmond OD Unavailable Korin Kraft RN Unavailable Encounter Details DateTypeDepartmentCare Team (Latest Contact Info)Mmwxrqqptcv12/13/2024Clinisync Result Encounter [facility] External Department Unsolicited Provider, Generic External Data Social History Tobacco UseTypesPacks/DayYears UsedDateSmoking Tobacco: FormerCigarettesQuit: [...] on one occasion?Never3PHQ-2AnswerDate Recorded Patient Health Questionnaire-2 Fbuux802EducationAnswerDate RecordedWhat is the highest level of school you have completed or the highest degree you have received?High school kbxmomnb32/16/2023Sex and Gender InformationValueDate RecordedSex Assigned at BirthNot on fileLegal KdhXlrs7908/18/2022 8:05 PM EDT Gender GzybstvmUijl61/15/2023 8:05 PM EDTSexual OrientationNot on filedocumented as of this encounter Functional Status * Over the past 2 weeks, how often have you been bothered by any of the following problems?QuestionAnswerDate of AssessmentAuthorLittle interest or pleasure in doing thingsNot at all03/19/2025 9:52 AM Pamella Phan MA Feeling down, depressed, or hopelessNot at all03/19/2025 9:52 AM Pamella Phan, MAPatient Health Questionnaire-2 Nkzll733 9:52 AM Pamella Phan MA * QuestionAnswerDate of AssessmentAuthorTrouble falling or staying asleep, or sleeping too muchSeveral days07/25/2024 9:00 AM Nuno Pamella, MAFeeling tired or having little energyNot at all07/25/2024 9:00 AM Pamella Reina MA Poor appetite or overeatingSeveral days07/25/2024 9:00 AM Pamella Reina MA Feeling bad about yourself - or that you are a failure or have let yourself or your family downNot at all07/25/2024 9:00 AM Pamella Reina, MATrouble concentrating on things, such as reading the newspaper or watching television Not at all07/25/2024 9:00 AM Nuno Pamella, MAMoving or speaking so slowly that other people could have noticed? Or the opposite - being so fidgety or restless that you have been moving around a lot more than usual.Not at all 07/25/2024 9:00 AM ESTYePamella nelson, MAThoughts that you would be better off or hurting yourself in some wayNot at all07/25/2024 9:00 AM Pamella Reina MAPatient Health Questionnaire-9 Mvzmz433 9:00 AM Pamella Reina MA documented as of this encounter Plan of Treatment DateTypeDepartmentCare Team (Latest Contact Info)Dnivlfeqxlx77/08/2026 9:00 AM EDTOffice Visit [facility] [address] [place] [address] Jordan Wong MD [address] [place] [address] documented as of this encounter Procedures Procedure NamePriorityDate/TimeAssociated DiagnosisCommentsNM ZAINAB PERF SPECT REST STR05/18/2024 10:06 AM EST documented in this encounter Results * NM ZAINAB PERF SPECT REST STR (05/18/2024 10:06 AM EST)Anatomical Region LateralityModalityOtherSpecimen (Source)Anatomical Location / Laterality Collection Method / VolumeCollection TimeReceived Time05/18/2024 10:06 AM EST Narrative 05/18/2024 10:07 AM EST [facility] ?[address] ? [place] [address] ?Nuclear Medicine Report ? Signed ? Patient: GABRIELA JENNINGSNIS Stephanie ?MR#: [id number] ?? : 1950 ?Acct:[id number] ?? Age/Sex: 74 / M ?ADM Date: 05/17/24 ?? Loc: CARD ? Attending Dr: PAUL WEN APRN ? Ordering Physician: PAUL WEN APRN ?? Date of Service: 05/17/24 ?? Procedure(s): NM zainab perf SPECT rest ?? str ?? Accession Number(s): [id number] ? cc: JORDAN WONG ; PAUL WEN APRN ? Patient Name: ? JUAN MIGUEL JENNINGS ? MR#: [id number] ? : 1950 ? Exam Date: 05/17/2024 ?? Ordering Doctor: PAUL WEN WASH HELPER ? RADIOLOGY REPORT ? PROCEDURE: ? NM ZAINAB PERF SPECT REST ?? STR ? COMPARISON: ? None. ? INDICATIONS: ? FATIGUE, CORONARY ARTERY DISEASE ? TECHNIQUE: ? Exam Description: ? Stress/Rest two day protocol gated SPECT ?? Rest Imaging: ?26.0 mCi Tc-99m Cardiolite IV on 05/18/2024 ?? Stress Imaging ? 25.5 mCi Tc-99m Cardiolite IV on 05/17/2024 ?? Exercise Protocol: ? 0.4 mg Lexiscan given IV ? Heart Rate (bpm): ? Rest: 56 ? Max: 74 ?PMHR: 50 ?? Blood Pressure: ? Rest: 154/96 ?Max: 154/96 ?? Symptoms: ? Rest and peak stress ECG findings were normal and the exercise portion of the ?? study was normal per attending physician Dr. Christie . For more details ?? please see separate cardiac stress test report. ?? FINDINGS: ? QUALITY OF STUDY: ? Good. ?? PERFUSION DEFECT: ?LOCATION: ? Mid-anterior. Mid-inferior. Apical anterior. Apical ?? inferior. [place]. ?SIZE: ? Large (5 or more segments). ?SEVERITY: ?Severe. ?TYPE: ?Persistent. ?? WALL MOTION: ? Moderate hypokinesis: ? LV SIZE: ? Enlarged; EDV 180 mL. ?? TID / TCD: ? None; ??1.0 ?? LVEF: ? Abnormal. Calculated EF 49%. ? SUMMARY: ? Myocardial perfusion imaging study has ABNORMAL findings. ? CONCLUSION: ? 1. Large fixed defects involving the anterior wall and inferior wall, LAD and ?? RCA distributions ?? 2. No redistribution to suggest reversible ischemia ?? 3. Dilated left ventricle, EDV 180 milliliters ?? 4. Low left ventricular ejection fraction of 49% ?? 5. Normal exercise test ? Dictated by: Silviano Hugo MD on 05/18/2024 at 10:01 ? Approved by: Silviano Hugo MD on 05/18/2024 at 10:05 ? Dictated By: ?Silviano Hugo M.D. ? Signed By: ?05/18/24 1007 ? DD/ 1006 ? TD/TT: ? Fire Loss Prevention Engineer: Procedure Note Radiology, Radiologist, MD - 05/18/2024 [place] [address] Nuclear Medicine Report Signed Patient: JUAN MIGUEL JENNINGS JMR#: [id number] : 1950cct:[id number] Age/Sex: 74 / MADM Date: 05/17/24 Loc: CARD Attending Dr: PAUL WEN APRN Ordering Physician: PAUL WEN APRN Date of Service: 05/17/24 Procedure(s): NM zainab perf SPECT rest str Accession Number(s): [id number] cc: JORDAN WONG ; PAUL WEN APRN Patient Name: JUAN MIGUEL JENNINGS MR#: [id number] : 1950 Exam Date: 05/17/2024 Ordering Doctor: [...] LOCATION: Mid-anterior. Mid-inferior. Apical anterior. Apical inferior. [place]. SIZE: Large (5 or more segments). SEVERITY: [...] M.D. Signed By:05/18/24 1007 DD/ 1006 TD/TT: Fire Loss Prevention Engineer: Authorizing ProviderResult TypeResult StatusGeneric External Data Provider CLINISYNC IMAGINGFinal Result documented in this encounter Visit Diagnoses Not on filedocumented in this encounter Additional Health Concerns AssessmentNoted TimePHQ-9 Depression Total Score: 9:00 AM EST documented as of this encounter Care Teams Team MemberRelationshipSpecialtyStart DateEnd Date Jordan Wong MD [address] [facility] [address] [place] [address] PCP - GeneralFamily Medicine10/25/22 Jordan Wong MD [address] [facility] [address] [place] [address] PCP - ACO Reach08/05/23 Mitch Mello MD [address] [place] [address] Referring MlekkvxsxExpgouqgjv84/12/232 Jr. Julio Henson DO [address] [facility] [address] [place] [address] Referring PhysicianOrthopaedic Jaymmsk72/12/23 Alberto Ibrahim DPM [facility] [place] [address] Referring MmcbdhkaqDdvmcyhp10/12/23 Julio Huddleston MD [address] [place] [address] Referring PhysicianFamily Medicine07/25/24 Hudson Stevenson MD [address] [place], [place] [phone] Referring PhysicianUrolog07/25/24 Kitty Edmond OD [address] [facility] [place] [address] Referring PhysicianOptometry07/25/24 Korin Kraft, ARUN [address] [place] [address] Registered NurseFamily Medicinedocumented as of this encounter
--- OUTSIDE RECORDS SUMMARY | 2025-04-10 09:42 | XMS_ITS | Clinical Summary ---
Author Organization [facility] Address [address], [address] [place] [address] Care Team Providers Care License Distributor Name Role Phone Jordan Wong MD Primary Care Provider Allergies Active AllergyReactionsCriticalityNoted DateCommentsClindamycin Hcl08/31/2021 Other reaction(s): nausea diarrhea KdepfxqmfOnvesjvw15/28/4317HupimuzijZtcpljkr49/28/5026Loidogwnzze80/28/2022 Other reaction(s): abdominal pain Ohqqkfcvhoxd26/28/2022 Other reaction(s): abdominal pain Medications MedicationSigDispense QuantityRefillsLast FilledStart DateEnd DateStatus metoprolol succinate (TOPROL XL) 50 MG extended release tablet Take 1 tablet by mouth nightly 100mg in the am, 50mg in the pmActive BABY ASPIRIN PO Take 81 mg by mouth daily.Active Cholecalciferol (VITAMIN D3) 50 MCG (1999) TABS Take by mouth dailyActive pioglitazone (ACTOS) 30 MG tablet Take 1 tablet by mouth dailyActive timolol (TIMOPTIC-XE) 0.5 % ophthalmic gel-forming Place 1 drop into both eyes wdxyi27807/24/2013ctive brinzolamide-brimonidine 1-0.2 % SUSP Apply to eye 3 times dailyActive oxybutynin (DITROPAN-XL) 5 MG extended release tablet Take 1 tablet by mouth navlg87309/08/2017Active testosterone cypionate (DEPOTESTOTERONE CYPIONATE) 200 MG/ML injection Inject 1 mL into the muscle. Once a nrhyz761Active latanoprost (XALATAN) 0.005 % ophthalmic solution INSTILL 1 DROP INTO AFFECTED EYE(S) BY OPHTHALMIC ROUTE ONCE DAILY IN THE [id number] losartan (COZAAR) 50 MG tablet TAKE 1 TABLET BY MOUTH EVERY DAY FOR 90 DAYS09/29/2021ctive RHOPRESSA 0.02 % SOLN PLACE 1 DROP INTO LEFT EYE JDMJMNOE93/15/2022ctive niacin 500 MG tablet Take 1 tablet by mouth dailyActive Multiple Vitamin (MULTIVITAMIN ADULT PO) Take by mouthActive tamsulosin (FLOMAX) 0.4 MG capsule Take 1 capsule by mouth daily06/18/2022ctive famotidine (PEPCID) 20 MG tablet Take 1 tablet by mouth 2 times dailyActive cyclobenzaprine (FLEXERIL) 10 MG tablet Take 1 tablet by mouth06/20/2023ctive diclofenac (VOLTAREN) 75 MG EC tablet Refills(s) ctive metoprolol (LOPRESSOR) 100 MG tablet Take 1 tablet by mouth every morningActive gabapentin (NEURONTIN) 100 MG capsule Take 1 capsule by mouth 4 times daily.5Active Evolocumab (REPATHA SURECLICK) SOAJ pen Inject into the skinActive Active Problems ProblemNoted DateDiagnosed DateAcute osteomyelitis of metatarsal bone of right foot - eilzyu9708/05/2016Morbid uasebsm4908/05/2016Type 2 diabetes mellitus with neurologic uekdaoqvmtnv85/01/2017Diabetic peripheral tucazxdljg21/01/2017 Cellulitis and abscess of toe of right foot08/04/2016Obstructive sleep apnea ibhktamo95/27/2016S/P JORY - LCX & RCA (6439-4493-Xo. kabour)05/13/2014S/P cardiac cath-05/13/14-Dr. landrum05/13/2014 Overview (05/13/2014): Patent stents HTN (hypertension)05/13/20149926Ceaykwrxkbmseg05/08/3893Uybnsbqrpsdp57/31/2014nal hcpfpz7603/15/2012 Resolved Problems ProblemNoted DateDiagnosed DateResolved DateScreening for colorectal cancer Encounters DateTypeDepartmentCare HbtlIujmemrvmeq43/10/2025Orders Only [facility] Part of [address] [phone] Newton Stein MD from Last 3 Months Immunizations ImmunizationAdministration DatesNext DueInfluenza Vaccine, unspecified miyjlcfguxf53/01/2016 Family History Medical HistoryRelationNameCommentsHeart DiseaseBrotherHeart DiseaseMother RelationNameStatusCommentsBrotherAliveFatherDeceasedMotherAlive Social History Tobacco UseTypesPacks/DayYears UsedDateSmoking Tobacco: EenkfpRxcuyujjjg423 08/31/1979 - 08/31/1999Smokeless Tobacco: Never Tobacco Cessation:Counseling Given: Not Answered Comments:quit smoking in 1999 Alcohol UseStandard Drinks/WeekCommentsNo0 (1 standard drink = 0.6 oz pure alcohol)Sex and Gender InformationValueDate RecordedSex Assigned at BirthNot on fileLegal BxcDerg0807/16/2012 9:00 PM ESTGender IdentityNot on fileSexual OrientationNot on file Last Filed Vital Signs Vital SignReadingTime TakenCommentsBlood Cgqxzdyr125/64010/17/2024 1:29 PM EDT Llzpd0052/14/2025 1:29 PM JVGKcvizzazohc57.4 ??C (97.5 ??F)10/17/2024 1:29 PM EDTRespiratory Wdix660510/17/2024 1:29 PM EDTOxygen Camwybsxps81%09/03/2016 12:55 PM EDTInhaled Oxygen Concentration--Ryxbab993.2 kg (351 lb)10/17/2024 1:29 PM AMMCiosre674.1 cm (6' 6 )11/09/2023 1:22 PM EDTBody Mass Index40.56011/09/2023 1:22 PM EDT Plan of Treatment DateTypeDepartmentCare Team (Latest Contact Info)Wplxejytpsq07/20/2026 1:00 PM ESTAppointment [facility] [address] [place] [address] axnutabkju97/20/2026 10:00 AM EDTOffice Visit [facility] Part of [address] [address] Willi Sanchez MD [address] [place] [address] F/UHealth MaintenanceDue DateLast DoneCommentsDiabetic foot exam02/10/1962Lipids 2Depression Mqpjuj4502/11/1964Diabetic Alb to Cr ratio (uACR) test 02/10/1970Diabetic retinal exam02/10/1970Hepatitis C joofbo9002/10/1970 DTaP/Tdap/Td vaccine (1 - Tdap)02/10/19718702Csnvwcspunr49/07/1997Colorectal Cancer Enknqt2402/10/1997FIT/FOBT: Average risk02/10/1997Fecal-DNA (Cologuard): Average risk02/10/1997Sigmoidoscopy/CT /07/1997Respiratory Syncytial Virus (RSV) or age 60 yrs+ (1 - Risk 60-74 years 1-dose series)2012 Shingles vaccine (2 of 3), 04/06/2013, 04/05/2013A1C test (Diabetic or Prediabetic)Annual Wellness Visit (Medicare) 05/02/2023Flu vaccine (#1)51, 02/28/2023, 04/16/2022, Additional history existsCOVID-19 Vaccine (2024- season)2025 03/23/2022, 06/18/2021, 08/28/2020, Additional history existsGFR test (Diabetes, CKD 3-4, OR last GFR 15-59)5002/22/2024, 10/25/2023, 04/26/2023, Additional history existsProstate Specific Antigen (PSA) Screening or Monitoring Zptsheaycipd76/10/2019Pneumococcal 50+ years NetlvtzEoxnztyrm62/01/2019, 03/05/2019, 03/04/2019, Additional history existsAAA vpowwkUchprgbag57/22/2021, 04/15/2014, 02/29/2012Hepatitis A vaccineAged OutNo longer eligible based on patient's age to complete this topicHepatitis B vaccineAged OutNo longer eligible based on patient's age to complete this topicHib vaccineAged OutNo longer eligible based on patient's age to complete this topicMeningococcal (ACWY) vaccineAged OutNo longer eligible based on patient's age to complete this topicMeningococcal B vaccineAged OutNo longer eligible based on patient's age to complete this topicPolio vaccineAged OutNo longer eligible based on patient's age to complete this topic Procedures Procedure NamePriorityDate/TimeAssociated DiagnosisCommentsPSA 3RD GENERATION Wkmnogf3110/13/2018 9:50 AM EDT COMPREHENSIVE METABOLIC VTQOSOwpbggu48/14/2017 11:00 AM EDT HEMOGLOBIN V0PPcnnnrv92/01/2017 7:05 PM EST US ABDOMEN HKWZURVJpiwrat62/10/2014 8:53 AM EST from Last 3 Months or Most Recently Relevant to Health Maintenance Results * PSA 3rd Generation (10/13/2018 9:50 AM EDT)ComponentValueRef RangeTest Method Analysis TimePerformed AtPathologist SignaturePSA, Ultrasensitive0.110.00 - 4.00 ng/mLCS-PATH LABComment: Performed at [facility] [address] [place] [address] [facility] [address] [place] [address] CLIA No. [id number] ?? CAP Accreditation No. [id number] Radio Interference Expert: Clint Tamez M.D. Specimen (Source)Anatomical Location / LateralityCollection Method / Volume Collection TimeReceived Time10/13/2018 9:50 AM EDT10/13/2018 11:25 AM EDT Narrative [facility] - 10/14/2018 2:14 AM EDT Ordering Provider: WILLI SANCHEZ Authorizing ProviderResult TypeResult StatusWilli Sanchez MDCHEMISTRY ORDERABLESFinal ResultPerforming OrganizationAddressCity/State/ZIP CodePhone Number [facility] * (ABNORMAL) Hemoglobin A1c (08/04/2016 7:05 PM EST)ComponentValueRef RangeTest MethodAnalysis TimePerformed AtPathologist SignatureHemoglobin A1C6.1(H)4.8 - 5.9 %08/04/2016 11:12 PM ESTCROWNPOINT HEALTHCARE FACILITY LABEstimated Avg Iwvxlmr578ag/dL08/04/2016 11:12 PM [facility] LABComment: The ADA and AACC recommend providing the estimated average glucose result to permit better patient understanding of their HBA1c result. Performed at [address] [place] [address] ??([phone] Specimen (Source)Anatomical Location / LateralityCollection Method / Volume Collection TimeReceived TimeBLOOD SPECIMEN / Onvrkkx3108/04/2016 7:05 PM EST 08/04/2016 10:33 PM EST Narrative Authorizing ProviderResult TypeResult StatusAndrew J Gase MDCHEMISTRY ORDERABLES Final ResultPerforming OrganizationAddressCity/State/ZIP CodePhone Number [address] [place] [address], [facility] [phone] [facility] * US ABDOMINAL LIMITED (04/15/2014 8:53 AM EST)Anatomical RegionLaterality ModalityAbdomenOtherSpecimen (Source)Anatomical Location / Laterality Collection Method / VolumeCollection TimeReceived Time04/15/2014 8:53 AM EST Narrative 04/15/2014 9:13 AM EST FINAL Procedure: ??TUL ??Apr 15 2014 ??8:53AM [id number] ??US ABD LIMITED Reason for Exam: ??^polycythemia, LIVER/ SPLEEN US FULL RESULT: ?? ULTRASOUND ABDOMEN TECHNIQUE: High resolution sonographic evaluation [...] in size to prior CT 02/29/2012. IMPRESSION: ? 1. Fatty infiltration of the liver 2. Spleen is within normal limits of size 3. Limited evaluation of the kidneys reveals no hydronephrosis Report Transcribed by: [facility] on Apr 15 2014 ??9:13A Read by: ??CHAPIN BAUTISTA M.D. ??[id number] on Apr 15 2014 ??9:13A Electronically Signed by: ??DR. CHAPIN BAUTISTA M.D. on: ??Apr 15 2014 ?? 9:13A ? Procedure Note Chapin Bautista MD - 04/15/2014 FINAL Procedure: TUL Apr 15 2014 8:53AM [id number] US ABD LIMITED Reason for Exam: ^polycythemia, [...] kidneys reveals no hydronephrosis Report Transcribed by: [facility] on Apr 15 2014 9:13A Read by: CHAPIN BAUTISTA M.D. [id number] on Apr 15 2014 9:13A Electronically Signed by: DR. CHAPIN BAUTISTA M.D. on: Apr 15 2014 9:13A Authorizing ProviderResult TypeResult StatusNasvan Conner MDIMG ORDERABLESFinal Result from Last 3 Months or Most Recently Relevant to Health Maintenance Insurance * Guarantor: Juan Miguel Jennings TypeRelation to PatientDate of BirthPhone Billing AddressPersonal/LxcoooCtya1950 [address] [address] * Guarantor: Juan Miguel Jennings TypeRelation to PatientDate of BirthPhone Billing AddressPersonal/VdcxlgWhsc1950 [address] [address] * Guarantor: Juan Miguel Jennings TypeRelation to PatientDate of BirthPhone Billing AddressPersonal/VcbgctRcig1950 [address] [address] Advance Directives TypeDate RecordedPatient RepresentativeExplanationACP-Power of Attorney08/31/2013 9:46 AMACP-Advance Directive08/31/2013 9:46 AM * Full Code (Latest Code Status on File) Date ActivatedDate InactivatedComments08/06/2016 9:06 AM08/09/2016 5:53 PM * Full Code Date ActivatedDate InactivatedComments08/04/2016 9:28 PM08/06/2016 9:06 AM * Full Code Date ActivatedDate UxureqtzvsaRkrdbtfr29/10/2015 12:42 PM05/19/2015 6:52 PM * Full Code Date ActivatedDate JjdtklalrefPrslrppt38/7/2015 11:22 AM05/15/2015 12:42 PM * Full Code Date ActivatedDate JivpcpzfvjaGanhwuav76/8/2014 2:36 PM05/13/2014 9:20 PM Care Teams Team MemberRelationshipSpecialtyStart DateEnd Date Jordan Wong MD [facility]07/25/19
--- OUTSIDE RECORDS SUMMARY | 2025-04-10 09:42 | XMS_ITS | Encounter Summary ---
Author Organization [facility] Address [address] [place] [address] Care Team Providers Care Raker Buffing Wheel Name Role Phone Jordan Wong MD Primary Care Provider Jr. Julio Henson DO Unavailable Alberto Ibrahim DPM Unavailable Jordan Wong MD Unavailable Julio Huddleston MD Unavailable [phone] Hudson Stevenson MD Unavailable [phone] Kitty Edmond OD Unavailable Encounter Details DateTypeDepartmentCare Team (Latest Contact Info)Nscsaqkafab19/27/2025Telephone [facility] [address] Medicine [address] [facility] [address] [place] [address] Jordan Wong MD [address] [facility] [address] [place], [place] [id number] Social History Tobacco UseTypesPacks/DayYears UsedDateSmoking Tobacco: FormerCigarettesQuit: [...] on one occasion?Never04/12/2023HQ-2AnswerDate Recorded Patient Health Questionnaire-2 Qrqzj479EducationAnswerDate RecordedWhat is the highest level of school you have completed or the highest degree you have received?High school /16/2023Sex and Gender InformationValueDate RecordedSex Assigned at BirthNot on fileLegal UftHamf8908/18/2022 8:05 PM EDT Gender IfswrqnbUyzp58/15/2023 8:05 PM EDTSexual OrientationNot on filedocumented as of this encounter Miscellaneous Notes * Telephone Encounter - Pamella Sam MA - 04/01/2025 2:47 PM EDT His pepcid was sent on 03/19 with the other medications * Telephone Encounter - Laisha Castaneda - 04/01/2025 2:39 PM EDT Juan Miguel called, he is asking for a refill on [facility]epcid to [facility]. Please let him know if he can get it. documented in this encounter Plan of Treatment DateTypeDepartmentCare Team (Latest Contact Info)Wsmxlxpezvn59/08/2026 9:00 AM EDTOffice Visit [facility] [address] [facility] [address] [place] [address] Jordan Wong MD [address] [facility] [address] [place] [address] documented as of this encounter Visit Diagnoses Not on filedocumented in this encounter Additional Health Concerns AssessmentNoted TimePHQ-9 Depression Total Score: 9:00 AM EST documented as of this encounter Care Teams Team MemberRelationshipSpecialtyStart DateEnd Date Jordan Wong MD [address] [place] [address] PCP - GeneralFamily Medicine10/25/22 Jordan Wong MD [address] [place] [address] PCP - ACO Reach08/05/23 Jr. Julio Henson DO [address] [place] [address] Referring PhysicianOrthopaedic Caqtuyq72/12/23 Alberto Ibrahim DPM [address] [place] [address] Referring RtvxfaqjdQbwxehqh08/12/23 Julio Huddleston MD [address] [place] [address] Referring PhysicianFamily Medicine07/25/24 Hudosn Stevenson MD [address] [place] [address] Referring PhysicianUrolog07/25/24 Kitty Edmond OD [address] [facility] [place] [address] Referring PhysicianOptometry07/25/24documented as of this encounter
--- OUTSIDE RECORDS SUMMARY | 2025-04-10 09:42 | XMS_ITS | Clinical Summary ---
Author Organization [facility] Address [address] [place] [address] Care Team Providers Care Pump Assembler Name Role Phone Jordan Wong MD Primary Care Provider [phone] Jr. Julio Henson DO Unavailable Alberto Ibrahim DPM Unavailable Jordan Wong MD Unavailable [phone] Julio Huddleston MD Unavailable Hudson Stevenson MD Unavailable Kitty Edmond OD Unavailable Allergies Active AllergyReactionsCriticalityNoted DateCommentsClindamycinDiarrhea 08/31/2021 Other reaction(s): nausea diarrhea OnbaeybpjJsxvspc96/28/2022 Other Reaction(s): abdominal pain GlipizideDiarrhea,Wxjczel1008/31/2021 Other Reaction(s): diarrhea MetforminDiarrhea,Lxocudt5808/31/2021 Other Reaction(s): diarrhea FfvxanncfluAqfguxn04/28/2022 Other Reaction(s): Other Other reaction(s): abdominal pain WtwwxagoqatlJhvfnjf86/07/2021 Other Reaction(s): abdominal pain Other reaction(s): abdominal pain Medications MedicationSigDispense QuantityRefillsLast FilledStart DateEnd DateStatus cholecalciferol (Vitamin D-3) 50 MCG (1999 UT) tablet Take by mouthActive Simbrinza 1-0.2 % suspension every 8 (eight) hoursActive latanoprost (Xalatan) 0.005 % ophthalmic solution 07/27/2018Active tamsulosin (Flomax) 0.4 MG 24 hr capsule Take 0.4 mg by mouth in the morning and 0.4 mg in the evening. Take after meals. Active aspirin 81 MG EC tablet Indications:Arteriosclerosis of coronary arteryTake 1 tablet (81 mg) by mouth in the morning.04/19/2023ctive Multiple Vitamin (multivitamin) capsule Take 1 capsule by mouth DailyActive isosorbide mononitrate ER (Imdur) 30 MG 24 hr tablet Take 30 mg by mouth Dailyctive timolol (Timoptic) 0.5 % ophthalmic solution Administer 1 drop into both eyes in the morning and 1 drop before bedtime. 05/31/2024ctive cyclobenzaprine (Flexeril) 10 MG tablet Indications:Lumbar paraspinal muscle spasmTake 1 tablet (10 mg) by mouth 3 (three) times a day as needed for muscle spasms 270 tablet 5Active diclofenac (Voltaren) 75 MG EC tablet Indications:Chronic pain syndromeTake 1 tablet (75 mg) by mouth 2 (two) times a day as needed (pain) Do not crush, chew, or split. 180 tablet /6Active oxybutynin XL (Ditropan-XL) 10 MG 24 hr tablet Take 10 mg by mouth Daily5Active losartan (Cozaar) 50 MG tablet Indications:Essential hypertensionTake 1 tablet (50 mg) by mouth Daily 90 tablet ctive metoprolol tartrate (Lopressor) 100 MG tablet Indications:Essential hypertensionTake 1 tablet (100 mg) by mouth Daily in the Morning AND 0.5 tablets (50 mg) in the evening. 1 tablet in AM. 0.5 tablet in PM. 135 tablet ctive pioglitazone (Actos) 30 MG tablet Indications:Type 2 diabetes mellitus with diabetic polyneuropathy, without long- term current use of insulin (HCC)Take 1 tablet (30 mg) by mouth in the morning. 90 tablet /6Active gabapentin (Neurontin) 100 MG capsule Indications:Type 2 diabetes mellitus with diabetic polyneuropathy, without long- term current use of insulin (HCC)2 capsules in Am 3 capsules at bedtime 450 capsule 5Active famotidine (Pepcid) 20 MG tablet Indications:DyspepsiaTake 1 tablet (20 mg) by mouth in the morning and 1 tablet (20 mg) before bedtime. 180 tablet /6Active Inclisiran Sodium (LEQVIO SC) Inject under the skinActive oxybutynin XL (Ditropan-XL) 5 MG 24 hr tablet Discontinued(Med list cleanup) amLODIPine (Norvasc) 5 MG tablet Take 5 mg by mouth DailyDiscontinued(Therapy completed) pioglitazone (Actos) 30 MG tablet Indications:Type 2 diabetes mellitus with diabetic polyneuropathy, without long- term current use of insulin ([facility])Take 1 tablet (30 mg) by mouth in the morning. 90 tablet Discontinued(Reorder) losartan (Cozaar) 50 MG tablet Indications:Essential hypertensionTake 1 tablet (50 mg) by mouth Daily 90 tablet Discontinued(Reorder) famotidine (Pepcid) 20 MG tablet Indications:DyspepsiaTake 1 tablet (20 mg) by mouth in the morning and 1 tablet (20 mg) before bedtime. 180 tablet Discontinued(Reorder) gabapentin (Neurontin) 100 MG capsule Indications:Type 2 diabetes mellitus with diabetic polyneuropathy, without long- term current use of insulin ([facility])Titrate from 1 to 2 capsules three times daily as needed for pain 540 capsule Discontinued(Reorder) metoprolol tartrate (Lopressor) 100 MG tablet Indications:Essential hypertensionTake 1 tablet (100 mg) by mouth See administration instructions 1 tablet in AM. 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 uxfocwiv60/08/2023 Hypogonadism male01/11/2023Type 2 diabetes mellitus with diabetic microalbuminuria, without long-term current use of lsstlef7801/11/2023resence of both artificial knee hardpy0205/25/2021ecreased testosterone level05/11/2021 Dependence on other enabling machines and pdnlrih8803/04/2021Osteoarthritis of knee02/25/2021hronic pain12/25/2020rug-induced mppwtawf24/28/2021Mixed xkhrgthxaysnhe64/28/2021Foot sdwapm2509/23/2020artial nontraumatic amputation of right foot09/18/2020artial nontraumatic amputation of foot, left09/11/2020 Adverse reaction to statin jozpvrtqfn95/07/4633Ieobuzbjtvnrubpa88/11/2020History of myocardial tjxrfhyirw07/14/2018 Overview (01/11/2023): Last Assessment & Plan: stable Type 2 diabetes mellitus with diabetic polyneuropathy, without long-term current use of vxgkbjg8410/05/2017Former hbxhov0907/13/2017Atherosclerosis of coronary artery without angina jpuqjhxr28/03/2017Fatty liver04/08/2017Testosterone vpjvbtffyf68/03/2017Morbid czxnquq5208/05/2016Obstructive sleep apnea syndrome 10/01/2015Essential iyxxfstkeuyr62/08/2014 Overview (01/11/2023): Last Assessment & Plan: I believethere is a white coat syndrome component to b/p today in office, at home typically 130/80 or less per his b/p log Continue toprol and losartan Renal function normal S/P drug eluting coronary stent mrurvqbgm62/08/2016Ritchvzpljjk66/31/2014 Resolved Problems ProblemNoted DateDiagnosed DateResolved DateAcquired hammer deformity of great toe/Glaucoma of both eyesNocturia /6421Minmuamh50ressure injury of right foot, stage Type 2 diabetes mellitus with foot ulcer01/11/2023 05/17/2023Type 2 diabetes mellitus with stage 2 chronic kidney disease, without long-term current use of rrltkil90Urinary jbibuvwkx64/08/2023 05/17/2023Urinary qsfwivj29/olyneuropathy due to type 2 diabetes agksurcb58Status post total left knee replacement /ifficulty mqamwoj55/11/2023Unilateral primary osteoarthritis, left kneeInternal derangement of left knee Other chronic painhronic kidney disease, stage 2 (mild)Old myocardial ltjlyjrlxx56/06/2018 01/13/2023iabetic renal vzfwcoq65cute osteomyelitis of metatarsal bone of right footellulitis and abscess of toe of right footiabetic peripheral /01/2017 01/13/2023S/P cardiac cath Overview (01/11/2023): Patent stents Encounters DateTypeDepartmentCare MnxtEmuvfvyfeqg22/04/2025 8:30 AM ESTOffice Visit [facility] [address] [place] [address] Alberto Ibrahim, KATLIN Diabetic polyneuropathy associated with type 2 diabetes mellitus (HCC) (Primary Dx); Nontraumatic amputation of foot, left (HCC); Nontraumatic amputation of foot, right (HCC)04/09/2025amboo flowsheet [facility] [address] [place] [address] Alberto Ibrahim DPM 04/09/20250383Ciuwdq57/27/2025Telephone [address] [place] [address] Jordan Wong MD 03/26/2025bstract [facility] [address] [place] [address] Jordan Wong MD 03/26/2025Orders Only [address] [address] [place] [address] Jordan Wong MD 03/26/2025bstract [address] [place] [address] Jordan Wong MD 03/25/2025 4:00 PM EDTOffice Visit [facility] acute hospital [facility] [address] [place] [address] Alberto Ibrahim DPM Diabetic polyneuropathy associated with type 2 diabetes mellitus (HCC) (Primary Dx); Nontraumatic amputation of foot, left (HCC); Nontraumatic amputation of foot, right (HCC); Acquired xnufayiezdp84/20/2025amboo flowsheet [facility] [address] [place] [address] Alberto Ibrahim DPM 03/25/20255686Oxvcdp74/14/2025 9:00 AM EDTOffice Visit [address] [place] [address] Jordan Wong MD Type 2 diabetes mellitus with diabetic polyneuropathy, without long-term current use of insulin (HCC); Type 2 diabetes mellitus with diabetic microalbuminuria, without long-term current use of insulin ([facility]); Essential hypertension; Microalbuminuria; Mixed hyperlipidemia; Adverse reaction to statin medication; Former smoker; Morbid obesity ([facility]); Jswmsysbs35/14/2025amboo flowsheet [facility] [address] [place] [address] Jordan Wong MD 03/19/20254663Ceaent58/27/2025Telephone [facility] [address] [address] Jordan Wong MD Care Awlvtefrkpdk07/12/2025Refill [facility] [address] [address] Jordan Wong MD Mmhlxnipr40/11/2025linisync Result Encounter [facility] External Department Unsolicited Provider, Generic External Data from Last 3 Months Immunizations ImmunizationAdministration DatesNext DueInfluenza, J5V2-112151/01/2016Influenza, High Dose Seasonal, Preservative Free03/05/2019,03/03/2018Influenza, High-dose Seasonal, Quadrivalent, Preservative Free03/04/2019,03/06/2016Influenza, Seasonal, Quadrivalent, Ylktrgsujc83/25/2023,04/16/2022,05/06/2021,03/22/2020 Influenza, Phyfxsauvue83/25/2023,04/16/2022,05/06/2021,03/22/2020,03/05/2019, 03/03/2018,04/06/2017,03/06/2016,03/06/2016,01/23/2016,03/23/2014,04/06/2013 Influenza, injectable, quadrivalent, preservative free04/06/2017,01/23/2016 Influenza, seasonal, kzzzjdmhaw80/23/2024,03/23/2014,04/06/2013Influenza, trivalent, nrglnezdba74/23/2024Moderna Bivalent Booster Yrqilxnsktv83/18/2022 Moderna SARS-CoV-2 50mcg/0.5mL Vkxdsjv2303/23/2022Novel anokbnxdn-C3O5-25, preservative-free04/21/2009Pfizer Bivalent Booster 12 Years And Older03/23/2022 Pfizer Purple Cap SARS-CoV-2 Aeupdmehomz02/25/2021,08/27/2020,08/08/2020, 08/07/2020neumococcal Conjugate PCV 1310,03/03/2018,03/02/2018 Pneumococcal Polysaccharide YTBW4119,03/04/2019,03/03/2018RSV, recombinant, protein subunit RSVpreF, adjuvant reconstitu, 120mcg/0.5mL, PF (Arexvy)01/31/20252374XLSY-UUV-7 (COVID-19) vaccine, mRNA, spike protein, LNP, bivalent, preservative free, 30 mcg/0.3 mLdose, palomo-sucrose formulation 03/23/20221525OZSO-ZnV-2, Memtwtvzmoh09/25/2021,08/08/2020Tdap01/31/2025Zoster, Spxrwshkcyh12/28/2025Zoster, live12/04/2016,04/06/2013,04/05/2013 Family History Medical HistoryRelationNameCommentsColon cancerBrotherDiabetesBrotherHeart diseaseFatherDiabetesMotherHeart diseaseMotherRelationNameStatusCommentsBrother1 brotherDaughterAlive2 daughtersFatherDeceasedMotherDeceasedSonAlive1 son Social History Tobacco UseTypesPacks/DayYears UsedDateSmoking Tobacco: FormerCigarettesQuit: [...] on one occasion?Never04/12/2023HQ-2AnswerDate Recorded Patient Health Questionnaire-2 Jjugd959EducationAnswerDate RecordedWhat is the highest level of school you have completed or the highest degree you have received?High school mqgourns00/16/2023Sex and Gender InformationValueDate RecordedSex Assigned at BirthNot on fileLegal XaoYvyp9208/18/2022 8:05 PM EDT Gender OsufslfjTnxl86/15/2023 8:05 PM EDTSexual OrientationNot on file Last Filed Vital Signs Vital SignReadingTime TakenCommentsBlood Velrohzw158/6803/19/2025 9:47 AM EDT Gsikd673603/19/2025 9:47 AM EDTTemperature--Respiratory Rate--Oxygen Mnhraudzrf46% 03/19/2025 9:47 AM EDTInhaled Oxygen Concentration--Bplzbc696 kg (347 lb) 04/09/2025 8:32 AM GOUCpshwv628.1 cm (6' 6 )04/09/2025 8:32 AM ESTBody Mass Index40. 8:32 AM EST Plan of Treatment DateTypeDepartmentCare Team (Latest Contact Info)Vcqyaldonip70/08/2026 9:00 AM EDTOffice Visit [facility] [address] [address] [place] [address] Jordan Wong MD [address] [address] Health MaintenanceDue DateLast DoneCommentsCT Oxjmmmbomfzp1952FIT-DNA 1952FIT1952FOBT02/11/19523021Zefgkqkeyjvvi1952OVID-19 Vaccine ( season), 03/23/2022, 03/23/2022, Additional history existsDiabetes: Hemoglobin A1C, 09/12/2024, 03/21/2024, Additional history existsMedicare Annual Wellness (AWV)07/25/2025 07/25/2024, 07/25/2024, 05/17/2023, Additional history existsDiabetes: Urine Protein Mrpwnsydp39, 11/11/2020, 12/21/2017Diabetes: Retinopathy Gycoidkus91, 11/25/2021, 11/12/2020, Additional history tnyrdpNtpzhxgzhov22/14/203107/olorectal Cancer Screening 12/17/2030neumococcal Vaccine: 65+ XneajTgwfmgagw05/01/2019, 03/05/2019, 03/04/2019, Additional history existsInfluenza TstwfqhWyfdxshid71/02/2025, 03/28/2024, 03/28/2024, Additional history exists Procedures Procedure NamePriorityDate/TimeAssociated DiagnosisCommentsHEMOGLOBIN U3CKmhjeex 03/13/2025 8:14 AM EDT Type 2 diabetes mellitus with diabetic polyneuropathy, without long-term current use of insulin (HCC) Type 2 diabetes mellitus with diabetic microalbuminuria, without long-term current use of insulin (HCC) ALL VJMZDMOVJJPQGbxbexr11/11/2025 7:28 AM EDT ALL CBC WITH AUTO YAULPrfliof58/11/2025 7:28 AM EDT POCT EDIXGYLJTMCZTxecqnq60/15/2025 9:34 AM EDT Essential hypertension Microalbuminuria Type 2 diabetes mellitus with diabetic microalbuminuria, without long-term current use of insulin (HCC) Type 2 diabetes mellitus with diabetic polyneuropathy, without long-term current use of insulin (HCC) DIABETIC RETINOPATHY SCREENING - OU - BOTH YBFKFlqmnot43/26/2024 9:57 AM EDT FJZQKQVIURZKieegzq02/14/2021 12:00 PM EDT from Last 3 Months or Most Recently Relevant to Health Maintenance Results * (ABNORMAL) Hemoglobin A1c (03/13/2025 8:14 AM EDT)ComponentValueRef RangeTest MethodAnalysis TimePerformed AtPathologist SignatureHemoglobin A1C6.4(H)<5.7 % QUESTComment: For someone without known diabetes, a hemoglobin [...] A1c for diagnosis of diabetes for children. Specimen (Source)Anatomical Location / LateralityCollection Method / Volume Collection TimeReceived TimeBloodVenous blood specimen / Ggczubf8303/13/2025 8:14 AM EDT1 3:54 PM EDT Narrative Resulting Agency Comment Performing Organization Information ?Site ID: [id number] ?Name: [employer] [facility] ?Address: [address] [place] [id number] ?Director: Toan Lara MD Authorizing ProviderResult TypeResult StatusJordan Wong MDLAB BLOOD ORDERABLESFinal ResultPerforming OrganizationAddressCity/State/ZIP CodePhone Number QUEST * (ABNORMAL) ALL TESTOSTERONE (01/14/2025 7:28 AM EDT)ComponentValueRef Range Test MethodAnalysis TimePerformed AtPathologist CtcptayduUVXBYHGHJXPK55(A)264 - 916 ng/dLTBHComment: Adult male reference interval is based on a population of healthy nonobese males (BMI <30) between 19 and 39 years old. bubba Fleming.al. JCEM 2017,102;5327-9764. PMID: [id number]. Performed at: ?? - [facility] ??[id number] Garage Helper: Zeke Almaguer PhD, Phone: ??[phone] Specimen (Source)Anatomical Location / LateralityCollection Method / Volume Collection TimeReceived Time01/14/2025 7:28 AM EDT01/14/2025 7:30 AM EDT Narrative [facility] - 01/15/2025 4:07 AM EDT Authorizing ProviderResult TypeResult StatusGeneric External Data Provider CLINISYNCFinal ResultPerforming OrganizationAddressCity/State/ZIP CodePhone Number [facility] * (ABNORMAL) ALL CBC WITH AUTO DIFF (01/14/2025 7:28 AM EDT)ComponentValueRef RangeTest MethodAnalysis TimePerformed AtPathologist SignatureTBH WBC7.34.0 - 11.0 10 3/uLTBHTBH RBC4.13(L)4.70 - 6.10 10 6/uLTBHTBH HGB13.4(L)14.0 - 18.0 g/dLTBHTBH HCT39.4(L)42.0 - 54.0 %TBHTBH MCV95.4(H)80.0 - 94.0 fLTBHTBH MCH 32.425.9 - 34.0 pgTBHTBH MCHC34.029.9 - 35.2 g/dLTBHTBH RDW13.211.0 - 15.0 % TBHTBH KHU716(L)150 - 450 10 3/uLTBHTBH MPV12.49.5 - 13.5 fLTBHNEUTROPHILS PERCENT AUTO62.043.0 - 75.0 %TBHLYMPHOCYTES PERCENT AUTO17.1(L)20.5 - 60.0 % TBHMONOCYTES PERCENT AUTO13.4(H)1.7 - 12.0 %TBHTBH EO %6.70.9 - 7.0 %TBH BASOPHILS PERCENT AUTO0.40.2 - 2.0 %TBHIMMATURE GRANULOCYTES PCT AUTO0.40.0 - 0.5 %TBHNEUTROPHILS ABSOLUTE AUTO4.51.4 - 6.5 10 3/uLTBHLYMPHOCYTES ABSOLUTE AUTO1.31.2 - 3.8 10 3/uLTBHMONOCYTES ABSOLUTE AUTO1.0(H)0.3 - 0.8 10 3/uLTBH TBH EO #0.50.0 - 0.7 10 3/uLTBHBASOPHILS ABSOLUTE AUTO0.00.0 - 0.1 10 3/uLTBH IMMATURE GRANULOCYTES ABS AUTO0.030.00 - 0.03 10 3/uLTBHSpecimen (Source) Anatomical Location / LateralityCollection Method / VolumeCollection Time Received Time08/04/2025 7:28 AM EDT01/14/2025 7:30 AM EDT Narrative [facility] - 01/14/2025 7:54 AM EDT Authorizing ProviderResult TypeResult StatusGeneric External Data Provider CLINISYNCFinal ResultPerforming OrganizationAddressCity/State/ZIP CodePhone Number [facility] * (ABNORMAL) POCT microalbumin manually resulted (09/18/2024 9:34 AM EDT) ComponentValueRef RangeTest MethodAnalysis TimePerformed AtPathologist SignatureMICROALBUMIN, EYGTR861PGE/CREAT QVHON290AELZC YCPZO97Ckbhuhsa (Source)Anatomical Location / LateralityCollection Method / VolumeCollection TimeReceived WexeIlhxo15/15/2025 9:34 AM EDT Narrative Authorizing ProviderResult TypeResult Shantelle Wong MDPOINT OF CARE TEST ENTER/EDIT ORDERABLESFinal Result * Diabetic Retinopathy Screening - OU - Both Eyes (09/30/2023 9:57 AM EDT) Anatomical RegionLateralityModalityHeadOther Narrative Authorizing ProviderResult TypeResult StatusKitty Stra ODOPHTH PHOTOGRAPHYFinal Result * Colonoscopy (12/17/2020 12:00 PM EDT)Anatomical RegionLateralityModality EndoscopySpecimen (Source)Anatomical Location / LateralityCollection Method / VolumeCollection TimeReceived Time12/17/2020 12:00 PM EDT Narrative 12/17/2020 12:00 PM EDT PERFORMED AT [facility] LOCATION:[id number] Procedure Note CONVERSION, GENERIC - 10/20/2022 PERFORMED AT [facility] LOCATION:[id number] Authorizing ProviderResult TypeResult Shantelle Wong MDENDOSCOPY PROCEDURE ORDERABLESFinal Result from Last 3 Months or Most Recently Relevant to Health Maintenance Insurance Advance Directives TypeDate RecordedPatient RepresentativeExplanationAdvance Directives and Living Will Living WillAdvance Directives and Living Will11/20/2019 2018-05-09 Power Of House Registry Rn Care Teams Team MemberRelationshipSpecialtyStart DateEnd Jordan Wong MD [address] [place] [address] (Fax) PCP - [facility]ly [facility]10/25/22 Jordan Wong MD [address] [place] [address] (Fax) PCP - [facility]08/05/23 Jr. Julio Henson DO [address] [place] [address] Referring PhysicianOrthopaedic Vdyzcuw41/12/23 Alberto Ibrahim DPM [address] [place] [address] Referring JxwkdtaeoMnozjbzo90/12/23 Julio Huddleston MD [address] [place] [address] Referring PhysicianFamily Medicine07/25/24 Hudson Stevenson MD [address] [place] [address] Referring PhysicianUrolog07/25/24 Kitty Edmond OD [address] [place] [address] Referring PhysicianOptometry07/25/24
--- OUTSIDE RECORDS SUMMARY | 2025-04-10 09:42 | XMS_ITS | Encounter Summary ---
Author Organization [facility] Address [address] [facility] [place] [address] Care Team Providers Care Block Out Machine Operator Name Role Phone Jordan Duncan MD Primary Care Provider [phone] Mtich Mello MD Unavailable [phone] Jr. Julio Henson DO Unavailable [phone] Alberto Ibrahim DPM Unavailable Jordan Duncan MD Unavailable [phone] Julio Huddleston MD Unavailable Hudson Stevenson MD Unavailable Kitty Edmond OD Unavailable Korin Kraft RN Unavailable Encounter Details DateTypeDepartmentCare Team (Latest Contact Info)Juczkicysgr67/17/2024Clinisync Result Encounter [facility] Unsolicited Provider, [...] on one occasion?Never3PHQ-2AnswerDate Recorded Patient Health Questionnaire-2 [id number] RecordedWhat is the highest level of school you have completed or the highest degree you have received?High school xvcehetd97/16/2023Sex and Gender InformationValueDate RecordedSex Assigned at BirthNot on fileLegal HqsUtob9108/18/2022 8:05 PM EDT Gender XupkdphnWmwh80/15/2023 8:05 PM EDTSexual OrientationNot on filedocumented as of this encounter Functional Status * Over the past 2 weeks, how often have you been bothered by any of the following problems?QuestionAnswerDate of AssessmentAuthorLittle interest or pleasure in doing thingsNot at all03/19/2025 9:52 AM Pamella Phna MA Feeling down, depressed, or hopelessNot at all03/19/2025 9:52 AM Pamella Phan, MAPatient Health Questionnaire-2 Iwvbl944 9:52 AM Pamella Phan MA * QuestionAnswerDate [...] 9:00 AM Pamella Reina MAPatient Health Questionnaire-9 Oetxc263 9:00 AM Pamella Reina MA documented as of this encounter Plan of Treatment DateTypeDepartmentCare Team (Latest Contact Info)Fhlwyrgbvuf07/08/2026 9:00 AM EDTOffice Visit [facility] [address] [place] [address] Jordan Duncan MD [address] [place] [address] documented as of this encounter Procedures Procedure NamePriorityDate/TimeAssociated DiagnosisCommentsCA ECHO DOPPLER FLEZPJBQ08/17/2024 5:06 PM EST ALL BESSBWMPMEMKUfgvdoi05/17/2024 8:39 AM EST documented in this encounter Results * CA ECHO DOPPLER COMPLETE (05/22/2024 5:06 PM EST)Anatomical RegionLaterality ModalityOtherSpecimen (Source)Anatomical Location / LateralityCollection Method / VolumeCollection TimeReceived Time05/22/2024 5:06 PM EST Narrative 05/22/2024 5:07 PM EST [facility] ?[address] ? [place] [address] ? Cardiology Report ? Signed ? Patient: JUAN MIGUEL JENNINGS ?MR#: [id number] ?? : 1950 ?Acct:[id number] ?? Age/Sex: 74 / M ?ADM Date: 05/22/24 ?? Loc: CARD ? Attending Dr: PAUL WEN BALLOON SANDER ? Ordering Physician: PAUL WEN APRN ?? Date of Service: 05/22/24 ?? Procedure(s): CA echo doppler complete ?? Accession Number(s): [id number] ? cc: JORDAN DUNCAN ; PAUL WEN APRN ? Patient Name: ? JUAN MIGUEL JENNINGS ? MR#: [id number] ? : 1950 ? Exam Date: 05/22/2024 ?? Ordering Doctor: PAUL WEN STATIONARY ENGINEER SUPERVISOR ? ECHOCARDIOGRAM REPORT ? PROCEDURE: ? CA ECHO DOPPLER COMPLETE ? INDICATIONS: ? Coronary artery disease ? COMPARISON: ? None. ? DESCRIPTION: ? COMPLETE ECHOCARDIOGRAM Real-time transthoracic ?? echocardiography with 2D, M-mode, spectral and color flow Doppler performed. ? QUALITY: ? Technical quality was good. ? LEFT VENTRICLE: ? Normal chamber size. Moderate concentric left ventricular ?? hypertrophy. ? LV EF: ? Global left ventricular systolic function is normal; visually ?? estimated ejection fraction is 55 to 60%. ??Abnormal septal motion may be ?? related to underlying bundle branch block. ?? DIASTOLIC: ? Normal diastolic function. ?? ATRIAL SEPTUM: ? Inadequately seen ?? LEFT ATRIUM: ? Normal chamber size. ?? RIGHT ATRIUM: ? Normal chamber size. ?? RIGHT VENTRICLE: ? Normal chamber size. Normal right ventricular systolic ?? function. ? TRICUSPID VALVE: ? Normal mobility and thickness. No stenosis with trivial ?? regurgitation. No evidence of pulmonary hypertension. RVSP 29mmHg ? MITRAL VALVE: ? Normal mobility and thickness. ?? No evidence of mitral valve ?? stenosis. ??Mild mitral annular calcification. Trivial mitral regurgitation. ? AORTIC VALVE: ? Normal trileaflet appearance. No visible sclerosis. ??Normal ?? leaflet mobility. ??No evidence of aortic valve stenosis. No aortic ?? regurgitation. ? AORTIC ROOT: ? Normal diameter and appearance. ? PULMONIC VALVE: ? Normal thickness and mobility. No stenosis. Trivial ?? regurgitation. ? PERICARDIUM: ? Anterior free space; trivial effusion versus fat pad ? IVC: ? Collapses with inspirations. Normal size. ? CONCLUSION: ? 1. Global left ventricular systolic function is normal; visually estimated ?? ejection fraction is 55 to 60% ?? 2. Normal right ventricular size and systolic function ?? 3. Moderate left ventricular hypertrophy ?? 4. Normal diastolic function ?? 5. The left atrium is normal in size ?? 6. No significant valvular abnormalities ?? 7. Anterior free space; trivial effusion versus fat pad ? Adult Echocardiography Procedure Report ?? Left Ventricle ?? LVEDD (3.7 - 5.6 cm): ? 4.50 cm ?? LVESD (2.2 - 4.0 cm): ? 3.00 cm ?? LVIVS thickness (0.6 - 1.2 cm): ? 1.23 cm ?? LVPW thickness (0.5 - 1.0 cm): ? 1.34 cm ?? e': ? 0.08 m/s ?? E - e': ? 10.58 ?? LVOT Max Gradient: ? 3.04 mm[Hg] ?? LVOT Area (cm2): ? 0.87 m/s ?? Peak Velocity (LVOT): ? 0.87 m/s ?? Mean Velocity (LVOT): ? 0.57 m/s ?? LVOT Diameter ? 2.21 cm ?? Left Ventricular Ejection Fraction: ? 53.89 % ?? Left Atrium ?? LA Volume Index (2D A2C): ? 31.42 ml/m2 ?? Left Atrium Systolic Dimension: ? 4.04 cm ?? Mitral Valve ?? MV E to A Ratio: ? 0.86 ?? Mitral Valve A-Wave Peak Velocity: ? 0.92 m/s ?? Mitral Valve E-Wave Peak Velocity: ? 0.80 m/s ?? Right Ventricle ?? RV Internal Diastolic Dimension: ? 3.80 cm ?? Aorta ?? AO Root Diam: ? 3.53 cm ?? Ascending Ao Diam: ? 3.47 cm ?? Aortic Valve ?? AoV Area (Peak Bradford): ? 3.31 cm2, 3.31 cm2 ?? AoV Area (VTI): ? 2.84 cm2, 2.84 cm2 ?? Peak Velocity(Antegrade Flow): ? 1.01 m/s ?? Peak Gradient(Antegrade Flow): ? 4.12 mm[Hg] ?? Mean Velocity(Antegrade Flow): ? 0.73 m/s ?? Mean Gradient(Antegrade Flow): ? 2.45 mm[Hg] ?? Velocity Time Integral: ? 25.68 cm ?? Tricuspid Valve ?? Peak Velocity (Regurgitant Flow): ? 2.36 m/s, 2.53 m/s, 2.13 m/s ?? Pulmonic Valve ?? Peak Velocity: ? 0.87 m/s ?? Peak Gradient: ? 3.16 mm[Hg], 2.91 mm[Hg] ?? Right Atrium ?? Right Atrium Systolic Pressure: ? 92.86 ml, 92.86 ml ? Dictated by: Nicola Diego M.D. on 05/22/2024 at 17:02 ? Approved by: Nicola Diego M.D. on 05/22/2024 at 17:06 ? Dictated By: ?Nicola Diego M.D. ? Signed By: ?05/22/241706 ? DD/ 1706 ? TD/TT: ? Regional Marketing Director: Procedure Note Radiology, Radiologist, MD - 05/22/2024 [place] [address] Cardiology Report Signed Patient: JUAN MIGUEL JENNINGS JMR#: [id number] : 1950cct:[id number] Age/Sex: 74 / MADM Date: 05/22/24 Loc: CARD Attending Dr: PAUL WEN APRN Ordering Physician: PAUL WEN APRN Date of Service: 05/22/24 Procedure(s): CA echo doppler complete Accession Number(s): [id number] cc: JORDAN DUNCAN ; PAUL WEN APRN Patient Name: JUAN MIGUEL JENNINGS MR#: [id number] : 1950 Exam Date: 05/22/2024 Ordering Doctor: [...] Diego M.D. Signed By:05/22/241706 DD/ 05 TD/TT: Regional Marketing Director: Authorizing ProviderResult TypeResult StatusGeneric External Data Provider [facility] IMAGINGFinal Result * (ABNORMAL) ALL TESTOSTERONE (05/22/2024 8:39 AM EST)ComponentValueRef Range Test MethodAnalysis TimePerformed AtPathologist QjpyopradDGTZPTFAPVQK85(A)264 - 916 ng/dLTBHComment: Adult male reference interval is based on a population of healthy nonobese males (BMI <30) between 19 and 39 years old. bubba Fleming.al. JCEM 2017,102;3697-5365. PMID: [id number]. Performed at: ?? - [facility] [address] ??[id number] Rental Clerk Tool [employer] Equipment: Zeke Almaguer PhD, Phone: ??[phone] Specimen (Source)Anatomical Location / LateralityCollection Method / Volume Collection TimeReceived Time05/22/2024 8:39 AM EST05/22/2024 8:40 AM EST Narrative [facility] - 05/23/2024 11:08 AM EST Authorizing ProviderResult TypeResult StatusGeneric External Data Provider CLINISYNCFinal ResultPerforming OrganizationAddressCity/State/ZIP CodePhone Number [facility] documented in this encounter Visit Diagnoses Not on filedocumented in this encounter Additional Health Concerns AssessmentNoted TimePHQ-9 Depression Total Score: 9:00 AM EST documented as of this encounter Care Teams Team MemberRelationshipSpecialtyStart DateEnd Date Jordan Duncan MD [address] [facility] [address] [place] [address] PCP - GeneralFamily Medicine10/25/22 Jordan Duncan MD [address] [address] PCP - ACO Reach08/05/23 Mitch Mello MD [address] [place] [address] Referring GvvtiwcjuXaoyijbvjn37/12/232 Jr. Julio Henson DO [address] [facility] [address] [place] [address] Referring PhysicianOrthopaedic Pidewpa17/12/23 Alberto Ibrahim DPM [address] [place] [address] Referring VqyeifxtuRzgefzxb06/12/23 Julio Huddleston MD [address] [place] [id number] Referring PhysicianFamily Medicine2 Hudson Stevenson MD [address] [place] [id number] Referring PhysicianUrology2 Kitty Edmond OD [address] [place] [address] Referring PhysicianOptometry2 Korin Kraft, RN [address] [place] [address] Registered NurseFamily Medicinedocumented as of this encounter
--- OUTSIDE RECORDS SUMMARY | 2025-04-10 09:52 | XMS_ITS | CCD ---
Author Organization [facility] Care Team Providers Care Android Architect Name Role Phone PHYSICIAN, DEFAULT Unavailable Unavailable PHYSICIAN, DEFAULT Unavailable Unavailable Diego Bartlett Primary Care Provider Jordan Duncan Primary Care Provider [phone] Jordan Duncan MD Primary Care Provider [phone] JORDAN DUNCAN Primary Care Physician Jordan Duncan MD Primary Care Provider JORADN DUNCAN Primary Care Physician Unavail able Jordan [...] DARRIUS BOLTON Unavailable ENEDINA HARGROVE Attending Unavailable ENEDINA HARGROVE Admitting Unavailable DAKOTA ., DR ALATORRE Primary Care Unavailable ENEDINA HARGROVE Attending Unavailable ENEDINA HARGROVE Admitting Unavailable HEMEENOC ., DR ALATORRE Primary Care Unavailable Jordan Duncan MD Primary Care Provider Mitch Mello MD Unavailable [phone] Jr. Anuja Henson DO Unavailable Alexandria DALAL, Brody Xiao Unavailable Jordan Duncan MD Unavailable [phone] Jordan Duncan MD Primary Care Provider Jordan Duncan MD Unavailable [phone] Jordan Duncan MD Primary Care Provider [phone] Jordan Duncan MD Unavailable Dakota NOLASCO, Jordan Brown Primary Care Provider [phone] WILLI SANCHEZ Referring Unavailable HEMEENOC, EDARSH Brown Primary Care Unavailable HEMEENOC, EDARSH Brown Primary Care Unavailable WILLI SANCHEZ Referring Unavailable HEMEENOC, EDARSH Brown Primary Care Unavailable WILLI SANCHEZ Referring Unavailable Anuja Huddleston MD Unavailable [phone] Topher Saavedra MD Unavailable [phone] Kitty Edmond OD Unavailable Anuja Huddleston MD Unavailable Abena DIAS, Korin Unavailable Enedina Hargrove DPM Attending Provider Enedina Hargrove Attending Unavailable Enedina Hargrove Admitting Unavailable PAUL CLEMONS Attending Unavailable ANUJA HUDDLESTON Attending Unavailable RACHEL ALEJO Attending Unavailable SAAVEDRA, Topher R Attending Unavailable SAAVEDRA, Topher R Attending Unavailable SAAVEDRA, Topher R Attending Unavailable SAAVEDRA, Topher R Attending Unavailable SAAVEDRA, Topher R Attending Unavailable SAAVEDRA, Topher R Attending Unavailable SAAVEDRA, Topher R Attending Unavailable Karo NOLASCO, Anuja Unavailable Keri NOLASCO, Topher Ordoñez Unavailable [phone] JORDAN DUNCAN Attending Unavailable HEMEYER, JORDAN Brown Attending Unavailable HEMEYERJORDAN Attending Unavailable RUSHER, BRODY Xiao Attending Unavailable HEMEYER, JORDAN Brown Attending Unavailable RUSHER, BRODY A Attending Unavailable RUSHER, BRODY A Attending Unavailable RUSHER, BRODY A Attending Unavailable Funmilayo NOLASCO, Mitch Armendariz Unavailable Abena DIAS, Korin Unavailable [phone] Allergies Allergy ClassificationReported Allergen(s)Allergy TypeDate of OnsetReaction(s) Facility (4 sources)Clindamycin/LincomycinPropensity to adverse reactions to drug 14-35-1966[place]knh[place]tbxt[place] (3 sources)ClindamycinDrug Aceelfh06-10-6436AKWPIONEER [facility] (4 sources)glipiZIDE; Translations: [GLIPIZIDE]Drug Ptbdqla39-54-8729OpnbolyaJCJCentra Bedford Memorial Hospital Work Phone: (20 sources)metFORMIN; Translations: [METFORMIN]Drug Fcpurzd78-98-3673EapwmtiiLifePoint Health Work Phone: (20 sources)Pravastatin; Translations: [PRAVASTATIN]Drug Blrygpb69-00-3752 [facility] Work Phone: (4 sources)rosuvastatin; Translations: [ROSUVASTATIN]Drug Mysdlym88-67-8234KZQPIONEER COMMUNITY [facility] Work Phone: (2 sources)Clindamycin; Translations: [CLINDAMYCIN]Drug Qrljiig66-62-4490Udl [facility] Rep[facility] (1 source)glipiZIDEDrug Rusqazq47-75-9875QwcK[facility] (1 source)metFORMINDrug Cmwaqvf15-21-2103XdsKettering Health [facility] Rep[facility] (20 sources)ClindamycinDrug Hdysorj63-03-9366PhmxymcbQAOZ Healthcare (20 sources)ezetimibe; Translations: [EZETIMIBE]Drug Ieacfdu29-20-7474Gmhtvbq [facility] (20 sources)glipiZIDEDrug Rmvwpmu03-05-5847Dkwtjmul, UnknownSelect Specialty Hospital (20 sources)Rosuvastatin calciumAllergy to aznwkolpd19-00-0385QjuerozAMYO Healthcare Medications Current Medications MedicationDrug Class(es)DatesSig (Normalized)Sig (Original)amLODIPine 5 mg oral tablet (18 sources)Dihydropyridine Calcium Channel BlockerStart: 06-08-2024 End: 59-53-0294dkcd 1 tablet by mouth once dailyamLODIPine (Norvasc) 5 MG tablet Take 5 mg by mouth Daily 06/08/2024 03/19/2025 Discontinued (Therapy completed) aspirin 81 mg delayed release oral tablet (20 sources)Platelet Aggregation Inhibitor, Nonsteroidal Anti-inflammatory Drug Start: 04-34-4106lyqc 1 tablet by mouth in the morningaspirin 81 MG EC tablet Indications: Arteriosclerosis of coronary artery Take 1 tablet (81 mg) by mouth in the morning. 04/19/2023 ActiveStart: 20-60-6515wroc 1 mg by mouth once daily aspirin 81 mg oral tablet mg tab(s), Oral, Daily, Refills(s) 0 Start Date: 01/01/19 Status: Ordered Repeat number: 1Simbrinza (20 sources)Carbonic Anhydrase Inhibitor, alpha-Adrenergic AgonistStart: 48-16-0193ttmx 1 drop(s) into the eye(s) twice dailySimbrinza drop(s), Eye-Both, BID, Refill(s) 0 Start Date: 01/01/19 Status: Ordered Repeat number: 1Start: 50-83-8477wpsa 1 drop(s) into the eye(s) twice dailySimbrinza drop(s), Eye-Both, BID, Refill(s) 0 Start Date: 01/01/19 Status: OrderedSimbrinza 1-0.2 % suspension every 8 (eight) hours Activebrinzolamide-brimonidine 1-0.2 % SUSP Apply to eye 3 times daily Activecholecalciferol 0.05 mg oral tablet (20 sources)Vitamin Dcholecalciferol (Vitamin D-3) 50 MCG (1999 UT) tablet Take by mouth ActiveCholecalciferol (VITAMIN D3) 50 MCG (2000 UT) TABS Take by mouth daily ActiveCholecalciferol (VITAMIN D3) 3000 UNITS TABS Take by mouth daily 0 ActiveCholecalciferol (VITAMIN D3) 3000 UNITS TABS Take by mouth. 0 Active cyclobenzaprine hydrochloride 10 mg oral tablet (20 sources)Muscle RelaxantStart: 04-19-2023 End: 35-17-0640vsvw 1 tablet by mouth three times daily as needed for muscle spasmscyclobenzaprine (Flexeril) 10 MG tablet Indications: Lumbar paraspinal muscle spasm Take 1 tablet (10 mg) by mouth 3 (three) times a day as needed for muscle spasms 270 tablet 12/03/2024 Activediclofenac sodium 75 mg delayed release oral tablet (20 sources)Nonsteroidal Anti-inflammatory DrugStart: 05-17-2023 End: 39-44-2528qiwa 1 tablet by mouth twice daily as needed for paindiclofenac (Voltaren) 75 MG EC tablet Indications: Chronic pain syndrome Take 1 tablet (75 mg) by mouth 2 (two) times a day as needed (pain) Do not crush, chew, or split. 180 tablet 3 12/24/2024 12/24/2025 Activeempagliflozin 25 mg oral tablet (20 sources)Sodium-Glucose Cotransporter 2 InhibitorStart: 77-87-8970xlel 1 mg by mouth once daily in the morningJardiance 25 mg oral tablet mg tab(s), Oral, qAM, Refills(s) 0 Start Date: 01/01/19 Status: Ordered Repeat number: 1famotidine 20 mg oral tablet (20 sources)Histamine-2 Receptor AntagonistStart: 12-13-2023 End: 02-82-2579zdtr 1 tablet by mouth in the morningfamotidine (Pepcid) 20 MG tablet Indications: Dyspepsia Take 1 tablet (20 mg) by mouth in the morning and 1 tablet (20 mg) before bedtime. 180 tablet 1 03/19/2025 09/15/2025 Active gabapentin 100 mg oral capsule (20 sources)Anti-epileptic AgentStart: 09-18-2024 End: 89-58-7216delsdbzizt (Neurontin) 100 MG capsule Indications: Type 2 diabetes mellitus with diabetic polyneuropathy, without long-term current use of insulin (HCC) 2 capsules in Am 3 capsules at bedtime 450 capsule 1 03/19/2025 ActiveglipiZIDE 10 mg oral tablet (20 sources)SulfonylureaStart: 28-45-8452fofr 10 mg by mouth once dailyglipiZIDE 10 mg, Oral, Daily, Refills(s) 0 Start Date: 01/01/19 Status: Ordered Repeat number: 1Inclisiran Sodium (LEQVIO SC) (9 sources)Inclisiran Sodium (LEQVIO SC) Inject under the skin Ilsffe10 hr isosorbide mononitrate 30 mg extended release oral tablet (20 sources)Nitrate VasodilatorStart: 06-08-2024 End: 23-97-7151felf 1 tablet by mouth once daily, then take 1 tablet by mouth every twenty-four hoursisosorbide mononitrate ER (Imdur) 30 MG 24 hr tablet Take 30 mg by mouth Daily 06/08/2024 06/08/2025 Activelatanoprost Opth 0.005% Richelle (3 sources)Start: 64-50-6686sdfiaprxqzl Opth 0.005% Richelle Refill(s) 0 Start Date: 02/25/20 Status: Orderedlosartan potassium 50 mg oral tablet (20 sources)Angiotensin 2 Receptor BlockerStart: 09-29-2021 End: 96-46-9569nfze 1 tablet by mouth once dailylosartan (Cozaar) 50 MG tablet Indications: Essential hypertension Take 1 tablet (50 mg) by mouth Daily 90 tablet 1 03/19/2025 09/15/2025 ActiveStart: 77-97-9911hrgjnuer 100 mg Tab Refills(s) 0 Start Date: 02/25/20 Status: Ordered Repeat number: 1take 2 tablets by mouth once dailylosartan (COZAAR) 25 MG tablet Take 50 mg by mouth daily 0 Activemetoprolol tartrate 100 mg oral tablet (20 sources)beta-Adrenergic BlockerStart: 10-12-2023 End: 69-13-4499bsfw 1 tablet by mouth once daily in the morning, then take 0.5 tablet by mouth in the evening, then take 1 tablet by mouth in the morning, then take 0.5 tablet by mouth in the eveningmetoprolol tartrate (Lopressor) 100 MG tablet Indications: Essential hypertension Take 1 tablet (100 mg) by mouth Daily in the Morning AND 0.5 tablets (50 mg) in the evening. 1 tablet in AM. 0.5 tablet in PM. 135 tablet 1 03/19/2025 09/15/2025 ActiveStart: 06-20-2023 METOPROLOL TARTRATE 100 MG TAB METOPROLOL TARTRATE 100 MG TAB Start Date: 06/20/23 Status: Ordered Repeat number: 1Start: 72-21-0157EVIJMMCRTV TARTRATE 100 MG TAB METOPROLOL TARTRATE 100 MG TAB Start Date: 06/20/23 Status: OrderedStart: 04-20-2023 End: 23-33-3421gkbh 1.5 tablets by mouth every twenty-four hours in the morning metoprolol succinate XL (Toprol XL) 100 MG 24 hr tablet Indications: Atherosclerosis of hughes coronary artery of hughes heart without angina pectoris (CMS/HCC) Take 1.5 tablets (150 mg) by mouth in the morning. Do not crush or chew.. 135 tablet 1 04/20/2023 10/17/2023 Activetake 1 tablet by mouth once dailymetoprolol succinate (TOPROL XL) 50 MG extended release tablet Take 1 tablet by mouth nightly 100mgin the am, 50mg in the pm Activetake 2 tablets by mouth twice daily in the eveningmetoprolol (TOPROL-XL) 25 MG XL tablet Take 2 tablets by mouth 2 times daily 100mg in the am, 50mg in the pm 0 ActiveMultiple Vitamin (MULTIVITAMIN ADULT PO) (2 sources)Multiple Vitamin (MULTIVITAMIN ADULT PO) Take by mouth ActiveMultiple Vitamin (MULTIVITAMIN ADULT PO) Take by mouth 0 ActiveMultiple Vitamin (multivitamin) capsule (20 sources)take 1 capsule by mouth once dailyMultiple Vitamin (multivitamin) capsule Take 1 capsule by mouth Daily Activetake 1 capsule by mouth in the morningMultiple Vitamin (multivitamin) capsule Take 1 capsule by mouth in the morning. Activetake 1 capsule by mouth in the morningMultiple Vitamin (multivitamin) capsule Take 1 capsule by mouth in the morning. 0 Active netarsudil 0.2 mg/ml ophthalmic solution (11 sources)Rho Kinase InhibitorStart: 07-21-2021 End: 91-91-5204uvfk 1 drop(s) into the eye(s) once dailyRHOPRESSA 0.02 % SOLN PLACE 1 DROP INTO LEFT EYE EVERYDAY 07/21/2021 Activeniacin 500 mg oral tablet (15 sources)Nicotinic AcidStart: 04-19-2023 End: 29-86-4269scvt 2 tablets by mouth in the eveningniacin 500 MG tablet Indications: Mixed hyperlipidemia (CMS/HCC) Take 2 tablets (1,000 mg) by mouthin the evening. 180 tablet 04/19/2023 04/18/2024 Activetake 1 tablet by mouth once dailyniacin 500 MG tablet Take 1 tablet by mouth daily Activetake 1 tablet by mouth twice dailyniacin 500 MG tablet Take 500 mg by mouth 2 times daily 0 Kqfrqk79 hr oxybutynin chloride 10 mg extended release oral tablet (20 sources)Cholinergic Muscarinic AntagonistStart: 49-20-4850uzwy 1 tablet by mouth once dailyoxybutynin XL (Ditropan-XL) 10 MG 24 hr tablet Take 10 mg by mouth Daily 02/25/2025 ActiveStart: 75-50-5983cexq 1 tablet by mouth once daily oxybutynin 10 mg ER Tab 10 mg = 1 tab(s), Oral, Daily, # 90 tab(s), Refills(s) 3, Pharmacy: [facility]/pharmacy #[id number], 198, cm, 02/08/25 8:10:00 EDT, Height/Length Dosing, 161.5, kg, 02/08/25 8:10:00 EDT, Weight Dosing Start Date: 02/08/25 Status: Ordered Quantity: 90.0 Unit: tab(s) Repeat number: 4 Indications: Overactive bladder;Start: 09-08-2017 End: 62-82-0496ircosbipcj XL (Ditropan-XL) 5 MG 24 hr tablet 09/08/2017 03/19/2025 Discontinued (Med list cleanup)Start: 77-69-1393bbpw 1 tablet by mouth once dailyoxybutynin XL (Ditropan-XL) 5 MG 24 hr tablet oxybutynin chloride ER 5 mg tablet,extended release 24 hr TAKE 1 TABLET BY MOUTH EVERY DAY 09/08/2017 Activepioglitazone 30 mg oral tablet (20 sources)Peroxisome Proliferator Receptor alpha Agonist, Peroxisome Proliferator Receptor gamma Agonist, ThiazolidinedioneStart: 04-19-2023 End: 14-75-4340jbdq 1 tablet by mouth in the morningpioglitazone (Actos) 30 MG tablet Indications: Type 2 diabetes mellitus with diabetic polyneuropathy, without long-term current use of insulin (HCC) Take 1 tablet (30 mg) by mouth in the morning. 90 tablet 1 03/19/2025 09/15/2025 ActiveStart: 02-25-2020 pioglitazone 45 mg Tab Refills(s) 0 Start Date: 02/25/20 Status: Ordered Repeat number: 1pravastatin sodium 40 mg oral tablet (20 sources)HMG-CoA Reductase InhibitorStart: 80-84-8333nidbmnimpdy 40 mg Tab Refills(s) 0 Start Date: 02/25/20 Status: Orderedtake 2 tablets by mouth once dailypravastatin (PRAVACHOL) 20 MG tablet Take 40 mg by mouth daily. 0 Active sucralfate 1000 mg oral tablet (15 sources)Aluminum ComplexStart: 37-56-4605grveuybpqh 1 g Tab Refills(s) 0 Start Date: 12/05/23 Status: Ordered Repeat number: 1Start: 10-12-2023 End: 03-05-8309qhnnbotbhq (Carafate) 1 g tablet Indications: RUQ pain Dissolve 1 tablet in 2 oz water. Take 30 minutes before meals 3 times daily and at bedtime 120 tablet 10/12/2023 03/27/2024 Discontinued (Therapy completed)tamsulosin hydrochloride 0.4 mg oral capsule (20 sources)alpha-Adrenergic BlockerStart: 86-04-1322ywii 1 capsule by mouth twice dailytamsulosin 0.4 mg Cap 0.4 mg = 1 cap(s), Oral, BID, # 180 cap(s), Refills(s) 3, Pharmacy: [facility]/pharmacy #[id number], 198, cm, 05/21/24 10:59:00 EST, Height/Length Dosing, 160, kg, 05/21/24 10:59:00 EST, Weight Dosing Start Date: 07/16/24 Status: Ordered Quantity: 180.0 Unit: cap(s) Repeat number: 4Start: 50-28-1444mypg 1 capsule by mouth twice dailytamsulosin 0.4 mg Cap 0.4 mg = 1 cap(s), Oral, BID, # 180 cap(s), Refills(s) 3, Pharmacy: [facility]/pharmacy #[id number], 198, patti, 12/05/23 10:49:00 EDT, Height/Length Dosing, 150.3, kg, 12/05/23 10:49:00 EDT, Weight Dosing Start Date: 01/11/24 Status: OrderedStart: 06-18-2022 take 1 capsule by mouth once dailytamsulosin 0.4 mg Cap 0.4 mg = 1 cap(s), Oral, Daily, # 90 cap(s), Refills(s) 3, Pharmacy: [facility]/pharmacy #[id number], 198, patti, 11/05/22 10:14:00 EDT, Height/Length Dosing, 150, kg, 11/05/22 10:14:00 EDT, Rodger ght Dosing Start Date: 05/26/23 Status: Orderedtake 1 capsule by mouth every twenty-four hours in the morningtamsulosin (Flomax) 0.4 MG 24 hr capsule Take 0.4 mg by mouth in the morning and 0.4 mg in the evening. Take after meals. Active1 ml testosterone cypionate 200 mg/ml injection (20 sources)AndrogenStart: 07-12-2017 End: 72-43-5484ueghkjipwgdl cypionate (DEPOTESTOTERONE CYPIONATE) 200 MG/ML injection Inject 1 mL into the muscle.Once a month 4 07/12/2017 Active testosterone cypionate 200 mg/mL IM Richelle (20 sources)Start: 67-84-5619kkjqqfrzewah cypionate 200 mg/mL IM Richelle 400 mg, IntraMuscular, q4wk, # 10 mL, Refills(s) 1, Pharmacy: [facility]/pharmacy #[id number], 198, patti, 12/05/23 10:49:00 EDT, Height/Length Dosing, 150.3, kg, 12/05/23 10:49:00 EDT, Weight Dosing Start Date: 03/27/24 Status: OrderedStart: 01-03-2024 testosterone cypionate 200 mg/mL IM Richelle 400 mg, IntraMuscular, q4wk, # 10 mL, Refills(s) 1, Pharmacy: [facility]/pharmacy #[id number], 198, cm, 12/05/23 10:49:00 EDT, Height/Length Dosing, 150.3, kg, 12/05/23 10:49:00 EDT, Weight Dosing Start Date: 01/03/24 Status: OrderedStart: 18-86-5829trxzljkhclxv cypionate 200 mg/mL IM Richelle 450 mg, IntraMuscular, q4wk, # 10 mL, Refills(s) 1, Pharmacy: [facility]/pharmacy #[id number], 198, cm, 06/20/23 11:05:00 EST, Height/Length Dosing, 149, kg, 06/20/23 11:05:00 EST, Weight Dosing Start Date: 06/20/23 Status: Ordered Start: 60-74-6515kmetlrkxhfhn cypionate 200 mg/mL IM Richelle 400 mg, IntraMuscular, q4wk, # 10 mL, Refills(s) 1, Pharmacy: [facility]/pharmacy #[id number], 198, cm, 11/05/22 10:14:00 EDT, Height/Length Dosing, 150, kg, 11/05/22 10:14:00 EDT, Weight Dosing Start Date: 05/09/23 Status: OrderedStart: 51-04-6577pubaqnzgzrbd cypionate 200 mg/mL IM Richelle 400 mg, IntraMuscular, q4wk, # 10 mL, Refills(s) 2, Pharmacy: [facility]/pharmacy #[id number], 198, cm, 11/05/22 10:14:00 EDT, Height/Length Dosing, 150, kg, 11/05/22 10:14:00 EDT, Weight Dosing Start Date: 02/08/23 Status: OrderedStart: 33-31-4668rzelhxdlivqo cypionate 200 mg/mL IM Richelle 400 mg, IntraMuscular, q4wk, # 10 mL, Refills(s) 2, Pharmacy: [facility]/pharmacy #[id number], 198, cm, 06/18/22 9:10:00 EST, Height/Length Dosing, 164, kg, 06/18/22 9:10:00 EST, Weight Dosing Start Date: 08/27/22 Status: Orderedtestosterone cypionate 200 mg/mL intramuscular solution (17 sources)Start: 79-34-3980dplqxydqakyu cypionate 200 mg/mL intramuscular solution 400 mg = 2 mL, IntraMuscular, q4wk, 400mg once a month, # 10 mL, Refills(s) 3, [id number], cm, 02/01/22 9:53:00 EDT, Heig ht/Length Dosing, 166, kg, 02/01/22 9:53:00 EDT, Weight Dosing Start Date: 02/01/22 Status: OrderedStart: 48-21-3205nxprnmectkne cypionate 200 mg/mL intramuscular solution 350 mg, IntraMuscular, q4wk, # 10 mL, Refills(s) 1, [id number], cm, 08/03/21 14:37:00 EST, Height/Length Dosing, 166, kg, 08/03/21 14:37:00 EST, Weight Dosing Start Date: 11/23/21 Status: OrderedStart: 88-00-3196iurgktitjtir cypionate 200 mg/mL intramuscular solution 350 mg, IntraMuscular, q4wk, # 10 mL, Refills(s) 1, [id number], cm, 08/03/21 14:37:00 EST, Height/Length Dosing, 166, kg, 08/03/21 14:37:00 EST, Weight Dosing Start Date: 08/03/21 Status: Exzjjyl57 hr timolol 5 mg/ml ophthalmic solution (20 sources)beta-Adrenergic BlockerStart: 20-01-5650shlh 1 drop(s) into the eye(s) in the morningtimolol (Timoptic) 0.5 % ophthalmic solution Administer 1 drop into both eyes in the morning and 1 drop before bedtime. 05/31/2024 Active Start: 16-53-5342numsz 1 drop(s) into the eye(s) once dailytimolol (TIMOPTIC-XE) 0.5 % ophthalmic gel-forming Place 1 drop into both eyes daily 3 05/23/2014 Ac tive End: 56-17-7980ovrh 1 drop(s) into the eye(s) at bedtimetimolol (Timoptic) 0.25 % ophthalmic solution Administer 1 drop into both eyes at bedtime 07/25/2024 Discontinued (Therapy completed) Completed/Discontinued Medications MedicationDrug Class(es)DatesSig (Normalized)Sig (Original)B Complex Vitamins (VITAMIN B COMPLEX PO) (20 sources) End: 87-30-6747odla 1 tablet by mouth in the morningB Complex Vitamins (VITAMIN B COMPLEX PO) Take 1 tablet by mouth in the morning. 07/25/2024 Discontinued (Therapy completed)take 1 tablet by mouth in the morningB Complex Vitamins (VITAMIN B COMPLEX PO) Take 1 tablet by mouth in the morning. Activetake 1 tablet by mouth in the morningB Complex Vitamins (VITAMIN B COMPLEX PO) Take 1 tablet by mouth in the morning. 0 ActiveB Complex Vitamins (VITAMIN B COMPLEX PO) Take by mouth daily 0 ActiveB Complex Vitamins (VITAMIN B COMPLEX PO) Take by mouth. 0 ActiveFish Oils (1 source) End: 14-32-7129VXEZ OIL by Does not apply route daily 0 01/12/2019 Discontinued (Therapy completed)latanoprost 0.05 mg/ml ophthalmic solution (20 sources)Prostaglandin AnalogStart: 08-64-0794enpdtswdoaj Opth 0.005% Richelle Refill(s) 0 Start Date: 02/25/20 Status: Ordered Repeat number: 1Start: 57-08-2639zblhwiululz (Xalatan) 0.005 % ophthalmic solution 07/27/2018 Active Start: 32-31-7034pgxz 1 drop(s) into the eye(s) at bedtimelatanoprost (Xalatan) 0.005 % ophthalmic solution INSTILL 1 DROP INTO BOTH EYES AT BEDTIME Ophthalmic for 90 Days 07/27/2018 ActiveStart: 37-62-4866bvyc 1 drop(s) into the eye(s) once daily in the eveninglatanoprost (XALATAN) 0.005 % ophthalmic solution INSTILL 1 DROP INTO AFFECTED EYE(S) BY OPHTHALMICROUTE ONCE DAILY IN THE EVENING 2 07/27/2018 Active Problems Active Problems Problem ClassificationProblemDateDocumented DateEpisodic/ChronicAbdominal pain (6 sources)Indigestion; Translations: [Epigastric pain]00-87-6949Qbkavdda Acquired foot deformities (20 sources)Hallux rigidus, right foot; Translations: [Acquired hallux malleus] Onset: 05-03-2022 Resolved: 826215-89-4813BjrbuzfWktnjaxl foot deformities (3 sources)Other hammer toe(s) (acquired), left foot; Translations: [Acquired hallux malleus of left great toe]Onset: 894147-19-4208TkqtjmbCdhhg myocardial infarction (20 sources)Myocardial iudifsrfih64-92-1866IibwdroYwmyhz of rectum and anus (7 sources)Malignant tumor of anus; Translations: [Malignant neoplasm of anus, unspecified]Onset: 389547-02-0529LlmclfiAawfktg kidney disease (20 sources)Chronic kidney disease stage 2; Translations: [Chronic kidney disease, stage 2 (mild)]Onset: 11-15-2019 Resolved: 166360-69-3323EvqahkjGwigrrqk atherosclerosis and other heart disease (20 sources)Coronary arteriosclerosis; Translations: [Atherosclerotic heart disease of hughes coronary artery without angina pectoris]Onset: 04-08-2017 Resolved: 085449-44-0765RoobpkxKgpmetsb mellitus with complications (20 sources)Diabetic peripheral neuropathy; Translations: [Type 2 diabetes mellitus with diabetic polyneuropathy]Onset: 08-04-2016 Resolved: 350613-81-1733HcsqusuTfepwqkp mellitus without complication (20 sources)Type 2 diabetes mellitus; Translations: [Type 2 diabetes mellitus with other diabetic neurological complication]Onset: 08-04-2016 Resolved: 051741-59-0324AolqpliDdpmdmhwr of lipid metabolism (20 sources)Hyperlipidemia; Translations: [Hyperlipidemia, unspecified]Onset: 834025-04-6715OtfypxtFpcsfdhxq hypertension (20 sources)Hypertensive disorder; Translations: [Essential (primary) hypertension]Onset: 788225-99-4470HghrtbtAlijdbud (20 sources)Open-angle glaucoma; Translations: [Unspecified open-angle glaucoma, stage unspecified]Onset: 01-11-2023 Resolved: 210302-66-7914YqntktsZwplwlommzr of prostate (20 sources)Benign prostatic hypertrophy with outflow obstruction; Translations: [Benign prostatic hyperplasia with lower urinary tract symptoms]Onset: 228867-75-4864IzfelvzBryzcsw (6 sources)Tinea unguium; Translations: [Onychomycosis due to dermatophyte ] Onset: 84-37-4172GoppvabsCjqr wounds of extremities (20 sources)Amputated foot; Translations: [Complete traumatic amputation of unspecified foot, level unspecified, initial encounter]Onset: 09-11-2020 90-48-1028IleovdiBytjcgqbubcjrw (20 sources)Osteoarthritis of knee; Translations: [Osteoarthritis of knee, unspecified]Onset: 02-25-2021 Resolved: 315985-13-1476XpyvnfeOxchu aftercare (1 source)[facility] (current) use of anticoagulants; Translations: [NURSING HOME CURRNT USE ANTICOAGULANTS]Onset: 02-44-3599JvcasrfuXgxqw aftercare (1 source)[facility] (current) use of aspirin; Translations: [MEMBERSHIP CORRESPONDENT CURRENT USE OF ASPIRIN]Onset: 91-59-5077WvipfvdxYqxfe aftercare (1 source)[facility] (current) use of oral hypoglycemic drugs; Translations: [MEMBERSHIP CORRESPONDENT USE ORAL HYPOGLYCEMIC DX]Onset: 07-23-5739EeyxeigfQklrv aftercare (1 source)Other correction (current) drug therapy; Translations: [OTH NURSING HOME CURRENT DRUG THERAPY]Onset: 97-17-3679EulooqqfOulyk circulatory disease (1 source)Other specified peripheral vascular diseases; Translations: [OTH SPEC PERIPHERAL VASC DISEASES]Onset: 6277HvtnsqoXtrze connective tissue disease (1 source)Presence of artificial knee joint, bilateral; Translations: [PRESENCE ARTIFICIAL KNEE JNT BILAT]Onset: 03-66-5069ZjaapbmLokrm connective tissue disease (20 sources)Artificial knee joint present; Translations: [Presence of artificial knee joint, bilateral]Onset: 418918-55-0051LhsdvvqRsell diseases of bladder and urethra (2 sources)Detrusor overactivity; Translations: [Overactive bladder]Onset: 12-06-8592GuckcalRdodx diseases of bladder and urethra (20 sources)Overactive bladder; Translations: [Overactive bladder]Onset: 678806-87-5270BcnwbghSiiix diseases of veins and lymphatics (2 sources)Disorder of vein of lower extremity; Translations: [Venous insufficiency (chronic) (peripheral)]35-77-5835QkakatlgKcnru endocrine disorders (20 sources)Disorder of pituitary gland; Translations: [Disorder of pituitary gland, unspecified]Onset: 85-86-4407NikwjkgNanxx endocrine disorders (20 sources)Hsmnoideiuxq02-17-4397JfmnmqlMdsck endocrine disorders (20 sources)Male hypogonadism; Translations: [Testicular hypofunction]Onset: 319396-37-0588TttlzpnFmwke endocrine disorders (8 sources)Testicular hypofunction; Translations: [Testicular hypofunction] Onset: 30-26-1255NuzcnhkWymqa endocrine disorders (1 source)Testicular hypofunction; Translations: [TESTICULAR HYPOFUNCTION]Onset: 21-66-7678BwgoeodPxjks gastrointestinal disorders (20 sources)H/O: liver -25-7773LjkzgvjwBpkxy liver diseases (20 sources)Steatosis of liver; Translations: [Fatty (change of) liver, not elsewhere classified]Onset: 835882-80-5126AxndgtvLcffi male genital disorders (20 sources)Fuxtpdony11-50-0080BeehgerMlbnk male genital disorders (5 sources)Phimosis; Translations: [PHIMOSIS]Onset: 17-79-0022QszfpkepOppvx nervous system disorders (20 sources)Chronic pain; Translations: [Other chronic pain]Onset: 12-25-2020 Resolved: 797487-11-7892BivztzfJigec nutritional; endocrine; and metabolic disorders (20 sources)Morbid obesity; Translations: [Morbid (severe) obesity due to excess calories]Onset: 598382-57-2497HazrdjdPbqlq nutritional; endocrine; and metabolic disorders (2 sources)Obesity caused by energy imbalance; Translations: [Morbid (severe) obesity due to excess calories]00-52-4104FlhpayePnjgx nutritional; endocrine; and metabolic disorders (2 sources)Body mass index 30+ - obesity; Translations: [Body mass index (BMI) 39.0-39.9, adult]62-66-8608ObmdbflUatjp skin disorders (1 source)Dystrophia unguium; Translations: [Nail dystrophy]76-73-4595Sikjgwwk Other skin disorders (5 sources)Acquired keratoderma; Translations: [Acquired keratosis [keratoderma] palmaris et plantaris]19-55-0960EinortqaFqrinztr codes; unclassified (20 sources)Obstructive sleep apnea syndrome; Translations: [Obstructive sleep apnea (adult) (pediatric)]Onset: 095164-42-4777EilphbqUbonyqjj codes; unclassified (20 sources)Sleep -53-7295XxirkcyTkpenych codes; unclassified (1 source)Sleep apnea, unspecified; Translations: [SLEEP APNEA UNSPECIFIED] Onset: 04-45-9579BxnaedpRlbeoihv codes; unclassified (20 sources)Dependence on enabling machine or device; Translations: [Dependence on other enabling machines and devices]Onset: hronic Residual codes; unclassified (2 sources)Obstructive sleep apnea (adult) (pediatric); Translations: [Obstructive sleep apnea (adult) (pediatric)]Onset: 71-26-1192JfxturqCdbsfxqr codes; unclassified (1 source)Family history of malignant neoplasm of digestive organs; Translations: [FAM HX MALIG NEOPLASM DIGESTIV ORGN]Onset: 85-65-6753Analjrkn Residual codes; unclassified (2 sources)Active advance directive (copy within chart) ; Translations: [Other specified health status]63-44-6721SpnynoqlYoqhncxhjzr; intervertebral disc disorders; other back problems (2 sources)Spasm of muscle of lower back; Translations: [Muscle spasm of back] 62-06-2065OqjafyhbPjmlvnljygo injury; contusion (6 sources)Blister (nonthermal), left foot, initial encounter; Translations: [Blister (nonthermal), right foot, sequela]Onset: 27-14-8977HfytvihjFsrxmmpxcifz (3 sources)History of cardiac catheterization; Translations: [S/P cardiac cath] Onset: 814749-82-6539Lneouyqcutgq (3 sources)CONTACT W/AND (SUSP) EXPOS COVID-19; Translations: [CONTACT W/AND (SUSP) EXPOS COVID-19]Onset: 01-19-2022 Past or Other Problems Problem ClassificationProblemDateDocumented DateEpisodic/ChronicAcquired foot deformities (2 sources)Flat foot [pes planus] (acquired), unspecified foot; Translations: [Other acquired deformities of left foot]Onset: 29-34-9405IxwmvbqiCplxkq of colon (20 sources)History of malignant neoplasm of colon; Translations: [Personal history of other malignant neoplasmof large intestine]Onset: 10-12-2022 16-05-5073DwnsanflMknuwmc ulcer of skin (20 sources)Non-pressure chronic ulcer of other part of right foot with fat layer exposed; Translations: [Non-pressure chronic ulcer of left heel and midfoot limited to breakdown of skin]Onset: 01-13-2022 Resolved: 819166-57-9919MgjqmqtWghijsog atherosclerosis and other heart disease (6 sources)History of placement of stent for coronary artery disease; Translations: [Presence of coronary angioplasty implant and graft]Onset: 018135-18-3223ZegebtkhJ Codes: Adverse effects of medical drugs (20 sources)HMG COA reductase inhibitor adverse reaction; Translations: [Adverse effect of antihyperlipidemic and antiarteriosclerotic drugs, initial encounter] Onset: 909894-01-6481KsynwueuOzvjxifidtqgk symptoms and ill-defined conditions (20 sources)Increased frequency of urination; Translations: [Nocturia]Onset: 11-15-2019 Resolved: 308433-88-5840SeoykwepRzoaeubdj arthritis and osteomyelitis (except that caused by tuberculosis or sexually transmitted disease) (20 sources)Acute osteomyelitis of metatarsal; Translations: [Other acute osteomyelitis, right ankle and foot]Onset: 08-05-2016 Resolved: 022933-25-1287IgjecwnFksks disorders and dislocations; trauma-related (20 sources)Derangement of left knee; Translations: [Unspecified internal derangement of left knee]Onset: 01-23-2021 Resolved: 560349-25-1244NvvtswaTbruulz and fatigue (2 sources)Other fatigue; Translations: [Other fatigue]Onset: 35-33-5305Mqubikxc Mood disorders (20 sources)Mood disordersOnset: 05-17-2023 Resolved: 238075-90-7056Uoqow connective tissue disease (20 sources)History of total knee arthroplasty; Translations: [Presence of left artificial knee joint]Onset: 06-03-2021 Resolved: 064764-90-9044CymsriqWcsii connective tissue disease (1 source)Pain in left foot; Translations: [PAIN IN LEFT FOOT]Onset: 05-25-2022 EpisodicOther connective tissue disease (1 source)Plantar fascial fibromatosis; Translations: [PLANTAR FASCIAL FIBROMATOSIS]Onset: 92-36-6498MnpkkpmqDknbw connective tissue disease (4 sources)Pain in right foot; Translations: [PAIN IN RIGHT FOOT]Onset: 31-45-6580PhzazwocKrpqo endocrine disorders (20 sources)Hypotestosteronism; Translations: [Endocrine disorder, unspecified] Onset: 925960-90-2912HlnmtdgmUvlvf gastrointestinal disorders (20 sources)Chronic constipation; Translations: [Other constipation]Onset: 080773-89-5056RzdaofmkFcbsd hematologic conditions (20 sources)Erythrocytosis; 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]Onset: 907309-47-6796VmyptbiwUbqls hematologic conditions (1 source)Secondary polycythemia; 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]Onset: 90-15-5292JkzhtqnyVcglg lower respiratory disease (1 source)Other specified respiratory disorders; Translations: [OTHER SPEC RESPIRATORY DISORDERS]Onset: 15-67-5438DgvzwdimZkamf male genital disorders (20 sources)Phimosis; Translations: [Phimosis]Onset: 05-17-2022 Resolved: 50-94-7964WwlfdulaHodkh nervous system disorders (20 sources)Difficulty walking; Translations: [Difficulty in walking, not elsewhere classified]Onset: 05-26-2021 Resolved: 684346-55-8758GusqmuxMybbc nervous system disorders (20 sources)Drug-induced myopathy; Translations: [Drug-induced myopathy]Onset: 715194-56-8378ToavkrmcSormh screening for suspected conditions (not mental disorders or infectious disease) (20 sources)Patient encounter status; Translations: [Encounter for screening for malignant neoplasm of colon]Onset: 02-12-2014 Resolved: 849296-88-6761NqsnczlmYlxuz skin disorders (1 source)Nail dystrophy; Translations: [NAIL DYSTROPHY]Onset: 05-25-2022 EpisodicOther skin disorders (5 sources)Corns and callosities; Translations: [CORNS AND CALLOSITIES]Onset: 94-48-5405UifenceuIpuem skin disorders (20 sources)Foot callus; Translations: [Corns and callosities]Onset: 09-23-2020 24-49-2329FwdhkqibNrcfwhot codes; unclassified (20 sources)History of cardiac catheterization; Translations: [Other specified postprocedural states]Onset: 05-13-2014 Resolved: 421342-38-0987PwkftvtpHqjqvvef codes; unclassified (20 sources)H/O: anticoagulant therapy; Translations: [Personal history of other drug therapy]Onset: 205367-00-6803WhjattdeHluozdkj codes; unclassified (1 source)Pain, unspecified; Translations: [PAIN UNSPECIFIED]Onset: 01-19-2022 EpisodicResidual codes; unclassified (2 sources)Other specified health status; Translations: [Other specified health status]Onset: 77-90-8903LxrqwtanDrxgxkwgn and history of mental health and substance abuse codes (20 sources)Ex-smoker; Translations: [Personal history of nicotine dependence] Onset: 145062-59-9954SjixhloqSagr and subcutaneous tissue infections (20 sources)Cellulitis and abscess of toe; Translations: [Cellulitis of right toe]Onset: 08-04-2016 Resolved: 286010-29-8925MakukpzfEnweokwfjkyh (3 sources)Patient encounter status; Translations: [Screening for colorectal cancer]Onset: 02-12-2014 Resolved: 681628-29-0607Fkyrtvdoznsj (1 source)CONTACT W/AND (SUSP) EXPOS COVID-19; Translations: [CONTACT W/AND (SUSP) EXPOS COVID-19]Onset: 01-18-2022 Results Test NameValueInterpretationReference RangeFacilityHEMOGLOBIN A1con 03-14-2025 HbA1c (Bld) [Mass fraction]6.4 %High<5.7Quest DiagnosticsComment on above:Result Comment: For someone without known diabetes, a [...] hemoglobin A1c for diagnosis of diabetes for children.Performed By: #### 496 #### [facility] [address], [address] [place] [address] Rfid Strategist: Toan Lara [facility] W/AUTO DIFFon 81-02-3371KCH IMMATURE GRAN 0.08 K/uLHigh0.00-0.06Pathology Laboratories IncComment on above:Result Comment: UNLESS OTHERWISE INDICATED, ALL TESTING PERFORMED AT: [employer] [address] [place] [address] ABSORPTION AND ADSORPTION ENGINEER: JONI NI M.D. CLIA NUMBER [id number] CAP ACCREDITATION AUID [id number] NEUTROPHILS3.85 K/uL Normal1.9-8.0Pathology Laboratories IncBasophils (Bld) [#/Vol]0.05 10*3/uLNormal 0.0-0.2Path[facility] Laboratories IncBasophils/100 WBC (Bld)0.7 %Normal0-2Pathology Laboratories IncEosinophils (Bld) [#/Vol]0.47 10*3/uLNormal0.0-0.80Pathology Laboratories IncEosinophils/100 WBC (Bld)7.0 %High0-5[facility] Erythrocyte distribution width (RBC) [Ratio]13.5 %Ezsskv80.2-14.8Pathology Laboratories IncHematocrit (Bld) [Volume fraction]40.4 %Tzmtcm95-20Eyerupyyk Laboratories IncHemoglobin (Bld) [Mass/Vol]13.5 g/nAAaujum74.0-18.0Pathology Laboratories IncIMMATURE GRAN1.2 %Normal0-2Pathology Laboratories IncLymphocytes (Bld) [#/Vol]1.41 10*3/uLNormal0.9-5.2Pathology Laboratories IncLymphocytes/100 WBC (Bld)21.0 %Reqysf65-41Ykyeokogf Laboratories IncMCH (RBC) [Entitic mass] 32.8 ngZqyq53.0-32.0Pathology Laboratories IncMCHC (RBC) [Mass/Vol]33.4 g/dL Cjtdsi15.0-36.0Pathology Laboratories IncMCV (RBC) [Entitic vol]98 fLNormal 75-100Pathology Laboratories IncMonocytes (Bld) [#/Vol]0.85 10*3/uLNormal0.1-1.0 Path[facility] Laboratories IncMonocytes/100 WBC (Bld)12.7 %Normal0-13Pathology Laboratories IncNeutrophils/100 WBC (Bld)57.4 %Vwwwuu94-23Bakhxyqzc Laboratories UxeSDSGICWG082 THOUS/FYENwi138-013Gzlwzxpas Laboratories IncRBC4.11 MILL/CMMLow 4.40-6.10Pathology Laboratories IncWBC6.7 THDS/CMMNormal3.6-11.0Pathology Laboratories IncUrology Office/Clinic Noteon 33-69-9770Exyvngk Office/Clinic NoteUrology Office/Clinic Note Chief Complaint pt here for follow up with labs HPI Staff Pt is a 74 year old male here for a follow up with labs Previous Dx: hypogonadism, elevated PSA, BPH with urinary obstruction, urinary urgency, phimosis Testosterone level: 10/20/22 - 321 05/23/23 - 278 11/21/23 - 412 05/08/24 - 461 01/15/25 - 67 PSA: 01/11/22 - 0.22 05/05/22 - 0.11 10/20/22 - 0.44 06/20/23 - 0.08 On 05/21/24 pt was to pause TRT until current HGB is drawn, pt was to donate blood Pt denies pain/burning denies visible blood denies flank pain Pt complains of frequency *oxybutin, flomax needs refills sent [facility] [place] IPSS: 8 History of Present Illness Tests [...] was declined from donating blood to the [facility] and had to get an order from oncology). 01/14/25 - Hgb 13.4, Hct 39.4 Stopped Testosterone IM 400 mg q4wk at prior OV due to high hgb. T level decreased, as expected. Hgb improved since being off TRT despite pt never donating blood. Shares he can have units of blood taken in [place]. Does have to get a phlebotomy order from onc. Discussed restarting TRT if pt can giveblood. However pt does not feel any different [...] 10 mg qd. New rx sent to [facility]. Call if emptying becomes difficult. -F/u in [...] With When Contact Information KERI NOLASCO, Topher Ordoñze, URL [address] [place] [address] [place] [address] Additional Instructions: 6 mos Patient Education Benign Prostatic Hyperplasia IErica, personally scribed for Dr. Saavedra on 02/08/2025 08:52:38. . Documentation recorded by the scribe, Erica Marin, accurately reflects the services(s) I performed and decisions made by me. Authenticated by Dr. Saavedra on 02/08/2025 08:55:10. 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 LouisEosinophils/100 WBC (Bld)6.7 %0.9 - 7.0 %[facility] Erythrocyte distribution width (RBC) [Ratio]13.2 %11.0 - 15.0 %[facility] Hematocrit (Bld) [Volume fraction]39.4 %Low42.0 - 54.0 %[facility] Hemoglobin (Bld) [Mass/Vol]13.4 g/dLLow14.0 - 18.0 g/dLSelect Specialty HospitalIMMATURE GRANULOCYTES ABS AUTO0.03NOCedar County Memorial HospitalImmature granulocytes/100 WBC (Bld)0.4 % 0.0 - 0.5 %[facility] HospitalInterpretation and review of laboratory results AbnormalNOCedar County Memorial HospitalLYMPHOCYTES ABSOLUTE AUTO1.3NOMS [facility] Lymphocytes/100 WBC (Bld)17.1 %Low20.5 - 60.0 %[facility] HospitalH (RBC) [Entitic mass]32.4 pg25.9 - 34.0 pgSouthPointe HospitalHC (RBC) [Mass/Vol]34 g/dL29.9 - 35.2 g/dLSouthPointe HospitalV (RBC) [Entitic vol]95.4 zMGwsh55.0 - 94.0 fLSelect Specialty HospitalMONOCYTES ABSOLUTE EAGG4EiyzBUON HealthcareMonocytes/100 WBC (Bld)13.4 %High1.7 - 12.0 %[facility] HospitalNEUTROPHILS ABSOLUTE AUTO4.5NOCedar County Memorial Hospital Neutrophils/100 WBC (Bld)62 %43.0 - 75.0 %[facility]ty HospitalPlatelet mean volume (Bld) [Entitic vol]12.4 fL9.5 - 13.5 fLNOPemiscot Memorial Health Systems EO #0.5[facility] TB CUW531YlkSQKE HealthcareSHRINERS CHILDREN'S RBC4.13LowNOMS HealthcareSHRINERS CHILDREN'S WBC7.3NOMS St. Elizabeth HospitalCLINISYNCNOMS Eogpxdczil93rj 82-25-765691GxkbbbMD Maria G Peralta MA Blood testing ok, continue leqvio. Advised patient of Dr. Huddleston's findings. Patient verbalized understanding and agreed with plan of care.[facility] 01-01-2025 Specimen: [id number] Received: 01/02/25 Status: PATRICIA Zhu Num: [id number] Spec Type: Surgical Subm Dr: Enedina Hargrove DPM, MS Tissues: A DIGIT AMPUTATION (RIGHT FIFTH TOE) Procedures: HE/3, Gross/Micro L4, Decalcification Age/ Patient Sex Location Account Attending Physician Juan Miguel Jennings 74/M LABEL [id number] Peter Highlander,DPM, MS SPEC NUM: [id number] RECD: 01/02/25 STATUS: PATRICIA ZHU NUM: [id number] JUANA: 01/01/[address] [facility] [address]: Enedina Hargrove,DPM, MS ENTERED: 01/02/[address]: Tj,Lab SPEC TYPE: Surgical DEPT: RADHA MILNER ENTERED BY: [id number] RECV BY: [id number] ORDERED: HE/3, Gross/Micro L4, Decalcification ORDERED: HE/3, [...] skin margin submitted in A3. (3, , UR03-598 A) Microscopic Description Microscopic examination is performed. Specimen: [id number] Received: 01/02/25 Status: ORLANDOMakayla Zhu Num: [id number] Spec Type: Surgical Subm Dr: Enedina Hargrove DPM, MS Tissues: A DIGIT AMPUTATION (RIGHT FIFTH TOE) Procedures: JUVENAL/Aidan, Gross/Micro L4, Decalcification Patient: Juan Miguel Jennings [id number] (Continued) Specimen: [id number] Received: 01/02/25 (Continued) Signed (signature on file) Christiano Lombardi MD 01/07/25 0938 Specimen: [id number] Received: 01/02/25 Status: PATRICIA Zhu Num: [id number] Spec Type: Surgical Subm Dr: Enedina Hargrove DPM, MS Tissues: A DIGIT AMPUTATION (RIGHT FIFTH TOE) Procedures: JUVENALAidan, Gross/Micro L4, Decalcification Patient: Juan Miguel Jennings [id number] (Continued) Specimen: [id number] Received: 01/02/25 (Continued) CPT Codes 37662, 71691 Specimen: [id number] Received: 01/02/25 Status: PATRICIA Zhu Num: [id number] Spec Type: Surgical Subm Dr: Enedina Hargrove,DPM, MS Tissues: A DIGIT AMPUTATION (RIGHT FIFTH TOE) Procedures: HE/3, Gross/Micro L4, Decalcification Patient: Juan Miguel Jennings [id number] (Continued) Signed (signature on file) Christiano Lombardi MD 01/07/25 0938[facility] Physician GroupXR FOOT RT MIN 3Von 20-43-6390[place] [address] XRay Report Signed Patient: JUAN MIGUEL JENNINGS MR#: [id number] : 1950 Acct:[id number] Age/Sex: 74 / M ADM Date: 01/01/25 Loc: [facility] Attending Dr: Enedina Hargrove D.P.M. Ordering Physician: Enedina Hargrove D.P.M. Date of Service: 01/01/25 Procedure(s): XR foot RT min 3V Accession Number(s): [id number] cc: JORDAN DUNCAN ; Enedina Hargrove D.P.M. [address] [address] Patient Name: JUAN MIGUEL JENNINGS MRN: [id number] date: 1950 Sex: M Assigned Patient Location: [facility] Current Patient Location: Accession/Order Number: [id number] Exam Date: 01/01/2025 15:03 Report Date: 01/01/2025 [...] 01/01/2025 3:04 PM Dictation Location: [place] [address] Electronically authenticated by: [id number] Y Date: 01/01/2025 15:04 Dictated By: John Pike M.D. Signed By: 01/01/25 1506 DD/ 1504 TD/TT: Supervisor Pigment Making:TBHRadiology, Radiologist, - 01/01/2025 [place] [address] XRay Report Signed Patient: JUAN MIGUEL JENNINGS MR#: [id number] : 1950 Acct:[id number] Age/Sex: 74 / M ADM Date: 01/01/25 Loc: [facility] Attending Dr: Enedina Hargrove D.P.M. Ordering Physician: Enedina Hargrove D.P.M. Date of Service: 01/01/25 Procedure(s): XR foot RT min 3V Accession Number(s): [id number] cc: JORDAN DUNCAN ; Enedina Hargrove D.P.M. [facility] [place] [address] Patient Name: JUAN MIGUEL JENNINGS MRN: [facility]:[id number] date: 1950 Sex: M [facility] Current Patient Location: Accession/Order Number: [id number] Exam Date: 01/01/2025 15:03 Report Date: 01/01/2025 [...] EVIDENCE OF OSTEOMYELITIS. Impression dictated by: John Pkie Jr., D.O. 01/01/2025 3:04 PM Dictation Location: [facility] Electronically authenticated by: [id number] Y Date: 01/01/2025 15:04 Dictated By: John Pike M.D. Signed By: 01/01/25 1506 DD/ 1504 TD/TT: Supervisor Pigment Making: [facility] HospitalRadiology Study observation (narrative)[facility] HospitalXR FOOT RT MIN 3VOrdered By: Radiologist Radiology on 62-78-0386UFJNSelect Specialty Hospital Work Phone: aLL CBC WITH AUTO DIFFon 63-61-2240JRSXEANFO ABSOLUTE EAUD0NRCZSelect Specialty HospitalBasophils/100 WBC (Bld)0.6 %0.2 - 2.0 %[facility] Eosinophils/100 WBC (Bld)5.5 %0.9 - 7.0 %[facility] Specialty HospitalErythrocyte distribution width (RBC) [Ratio]13.2 %11.0 - 15.0 %[facility] HospitalHematocrit (Bld) [Volume fraction]40.2 %Low42.0 - 54.0 %[facility] HospitalHemoglobin (Bld) [Mass/Vol]13.8 g/dLLow14.0 - 18.0 g/dLSelect Specialty HospitalIMMATURE GRANULOCYTES ABS AUTO0.03NOCedar County Memorial HospitalImmature granulocytes/100 WBC (Bld)0.4 %0.0 - 0.5 %[facility] Interpretation and review of laboratory resultsAbnormalSelect Specialty Hospital LYMPHOCYTES ABSOLUTE AUTO1.4NOCedar County Memorial HospitalLymphocytes/100 WBC (Bld)19.7 %Low 20.5 - 60.0 %[facility] HospitalH (RBC) [Entitic mass]33 pg25.9 - 34.0 pgNODoctors Hospital of SpringfieldHC (RBC) [Mass/Vol]34.3 g/dL29.9 - 35.2 g/dLNODoctors Hospital of SpringfieldV (RBC) [Entitic vol]96.2 dTQqte07.0 - 94.0 fLALTA VIEW HOSPITAL HealthcareMONOCYTES ABSOLUTE AUTO0.8 NOM HealthcareMonocytes/100 WBC (Bld)11.2 %1.7 - 12.0 %[facility] NEUTROPHILS ABSOLUTE AUTO4.4NOAK HealthcareNeutrophils/100 WBC (Bld)62.6 %43.0 - 75.0 %[facility] HealthcarePlatelet mean volume (Bld) [Entitic vol]11.9 fL9.5 - 13.5 fLALTA VIEW HOSPITAL HealthcareTBH EO #0.4NOMS HealthcareTBH ADT033PajXYOI HealthcareTB RBC 4.18LowNOMS HealthcareTBH WBC7.1NOMS HealthcareCLINISYNCNOMS HealthcareXR CHEST 2Von 65-35-1259[place] [address] XRay Report Signed Patient: JUAN MIGUEL JENNINGS MR#: [id number] : 1950 Acct:[id number] Age/Sex: 74 / M ADM Date: 12/28/24 Loc: [facility] Attending Dr: Enedina Hargrove D.P.M. Ordering Physician: Enedina Hargrove D.P.M. Date of Service: 12/28/24 Procedure(s): XR chest 2V Accession Number(s): [id number] cc: JORDAN DUNCAN ; Enedina Hargrove D.P.M. [address] [id number] Patient Name: JUAN MIGUEL JENNINGS MRN: [id number] date: 1950 Sex: M Assigned Patient Location: [facility] Current Patient Location: [facility] Accession/Order Number: [id number] Exam Date: 12/28/2024 15:02 Report Date: 12/28/2024 [...] Palacios M.D. 12/28/2024 3:03 PM Dictation Location: [place] [address] Electronically authenticated by: [id number] Y Date: 12/28/2024 15:03 Dictated By: Tomer Palacios D.O. Signed By: 12/28/24 1506 DD/ 150 TD/TT: Supervisor Pigment Making:JYOTIHRadiology, Radiologist, - 12/28/2024 [place] [address] XRay Report Signed Patient: JUAN MIGUEL JENNINGS MR#: [id number] : 1950 Acct:[id number] Age/Sex: 74 / M ADM Date: 12/28/24 Loc: [facility] Attending Dr: Enedina Hargrove D.P.M. Ordering Physician: Enedina Hargrove D.P.M. Date of Service: 12/28/24 Procedure(s): XR chest 2V Accession Number(s): [id number] cc: JORDAN DUNCAN ; Enedina Hargrove D.P.M. The [place] [id number] Patient Name: JUAN MIGUEL JENNINGS MRN: [id number] date: 1950 Sex: M Assigned Patient Location: [facility] Current Patient Location: [facility] Accession/Order Number: [id number] Exam Date: 12/28/2024 15:02 Report Date: 12/28/2024 [...] Palacios M.D. 12/28/2024 3:03 PM Dictation Location: [place] [address] Electronically authenticated by: [id number] Y Date: 12/28/2024 15:03 Dictated By: Tomer Palacios D.O. Signed By: 12/28/24 1506 DD/ 1503 TD/TT: Supervisor Pigment Making: [facility] CENTERKala HealthcareRadiology Study observation (narrative)[facility] HospitalXR CHEST 2V Ordered By: Radiologist Radiology on 44-35-7077[facility] Work Phone: all LIPID PROFILE (FASTING)on 45-75-0021CUCF HDL RATIO 4.3NOAK HealthcareComment on above:3.3 - 4.4 LOW RISK 4.4 - 7.1 AVERAGE RISK 7.1 - 11.0 MODERATE RISK >11.0 HIGH RISK Cholesterol [Mass/Vol]172 mg/dLNINF - 200 mg/dLNOCedar County Memorial HospitalCholesterol in HDL [Mass/Vol]40 mg/dL40 - 60 mg/dLNOAK HealthcareComment on above:> or =60 mg/dl - LOW CARDIOVASCULAR RISK <40 mg/dl - HIGH CARDIOVASCULAR RISK Interpretation and review of laboratory resultsAbnormalNOAK HealthcareMagnesium [Mass/Vol]77 mg/dLNOAK HealthcareComment on above:<100 mg/dl OPTIMAL 100-129 mg/dl NEAR OR ABOVE OPTIMAL 130-159 mg/dl BORDERLINE HIGH 160-189 mg/dl HIGH >190 mg/dl VERY HIGH Magnesium [Mass/Vol]55.8 mg/dLNOAK HealthcareTriglyceride [Mass/Vol]279 mg/dL HighNINF - 150 mg/dLMosaic Life Care at St. JosephHP LIVER PANELon 30-80-4500Qukbnqd [Mass/Vol]3.5 g/dL3.4 - 5.0 g/dLNOAK HealthcareALBUMIN GLOBULIN [id number] HealthcareALP [Catalytic activity/Vol]77 U/L46 - 116 U/LNOMS HealthcareALT [Catalytic activity/Vol]44 U/L16 - 63 U/LNOMS HealthcareAST [Catalytic activity/Vol]23 U/L15 - 37 U/LNOMS HealthcareBilirubin [Mass/Vol]0.5 mg/dL0.2 - 1.0 mg/dLNOMS HealthcareBilirubin.indirect [Mass/Vol]0.1 mg/dL0.0 - 0.2 mg/dL NOMS HealthcareGlobulin (S) [Mass/Vol]3.6 g/dLNOMS HealthcareProtein [Mass/Vol] 7.1 g/dL6.4 - 8.2 g/dLNOMS HealthcareNo Panel Informationon 78-73-4521XZYDNXCNO NOMS HealthcareOffice Visiton 71-72-9162Foelkf-up [id number] Juan Miguel Jennings 1950 M Date Provider Department Center 12/21/2024 [id number]-[id number], AD[facility] Family History Problem Relation Age of Onset Heart disease Mother Heart disease Father Family Status - Relation Status Age at Mother Father Level of Service:75356 DC OFFICE/OUTPATIENT ESTABLISHED MOD [facility]DM [facility]AUTO DIFFon 41-56-4711ESG IMMATURE GRAN 0.03 K/uLNormal0.00-0.06Pathology Laboratories IncComment on above:Result Comment: UNLESS OTHERWISE INDICATED, ALL TESTING PERFORMED AT: [employer] [address] [place] [address] ABSORPTION AND ADSORPTION ENGINEER: JONI NI M.D. CLIA NUMBER [id number] CAP ACCREDITATION AUID [id number] NEUTROPHILS3.59 K/uL Normal1.9-8.0Pathology Laboratories IncBasophils (Bld) [#/Vol]0.04 10*3/uLNormal 0.0-0.2Pathology Laboratories IncBasophils/100 WBC (Bld)0.7 %Normal0-2Pathology Laboratories IncEosinophils (Bld) [#/Vol]0.37 10*3/uLNormal0.0-0.80Pathology Laboratories IncEosinophils/100 WBC (Bld)6.2 %High0-5[facility] Inc Erythrocyte distribution width (RBC) [Ratio]13.0 %Nifdgt38.2-14.8Pathology Laboratories IncHematocrit (Bld) [Volume fraction]42.1 %Ljoene18-31Ljnwwfnpm Laboratories IncHemoglobin (Bld) [Mass/Vol]14.0 g/sSLdpngr14.0-18.0Pathology Laboratories IncIMMATURE GRAN0.5 %Normal0-2Pathology Laboratories IncLymphocytes (Bld) [#/Vol]1.21 10*3/uLNormal0.9-5.2Pathology Laboratories IncLymphocytes/100 WBC (Bld)20.1 %Jpylie08-38Lmkaczlic Laboratories IncMCH (RBC) [Entitic mass] 33.7 xtXnmt24.0-32.0Pathology Laboratories IncMCHC (RBC) [Mass/Vol]33.3 g/dL Fmwuva20.0-35.0Pathology Laboratories IncMCV (RBC) [Entitic vol]101 uQIwwc59-482 Pathology Laboratories IncMonocytes (Bld) [#/Vol]0.77 10*3/uLNormal0.1-1.0 Pathology Laboratories IncMonocytes/100 WBC (Bld)12.8 %Normal0-13Pathology Laboratories IncNeutrophils/100 WBC (Bld)59.7 %Qhagak18-63Oeuuewwci Laboratories QhbYFATZXUP090 THOUS/ECTGixulq043-659Xzbcduhsm Laboratories IncRBC4.16 MILL/CMM Low4.40-6.10Pathology Laboratories IncWBC6.0 THDS/CMMNormal3.6-11.0Pathology Laboratories IncLaboratory - Chemistry and Chemistry - challengeon 09-18-2024 Albumin DL <= 20 mg/L (U) [Mass/Vol]150 mg/dLNOAK HealthcareAlbumin/Creatinine DL <= 1.0 mg/L (U) [Ratio]300NOMS HealthcareCreatinine (U) [Mass/Vol]50 mg/dL NOMS HealthcareNo Panel Informationon 58-14-7100Dfjpyevkeqivtj and review of laboratory resultsAbnormalUniversity Health [facility] HealthcareCOMPREHENSIVE METABOLIC PANELon 80-76-4268Nletycp [Mass/Vol]4.3 g/dLNormal3.6-5.1[facility] Comment on above:Performed By: #### 496, 7600 #### [facility] of [address], [address] [place] [address] Rfid Strategist: Toan Lara MD #### [id number] #### [facility] [address] [place] [address] Rfid Strategist: Parvin Ordoñez FlatiAlbumin/Globulin [Mass ratio]1.5 {ratio}Normal 1.0-2.5Quest DiagnosticsComment on above:Performed By: #### 496, 7600 #### [facility] of [address], [address] [place] [address] Rfid Strategist: Toan Lara MD #### 94941 #### [facility] [address] [place], [place] [address] Rfid Strategist: Parvin Ordoñez FlatiALP [Catalytic activity/Vol]64 U/TNzmrab79-397 [facility] DiagnosticsComment on above:Performed By: #### 496, 6630 #### [facility] of [address] , [address] [place] [address] Rfid Strategist: Toan Lara MD #### 22643 #### [facility] [address] [place], [place] [address] Rfid Strategist: Parvin Ordoñez FlatiALT [Catalytic activity/Vol]32 U/LNormal9-46 [facility] DiagnosticsComment on above:Performed By: #### 496, 5560 #### [facility] of [address] , [address] [place] [address] Rfid Strategist: Toan Lara MD #### [id number] #### [facility] [address] [place], [place] [address] Rfid Strategist: Parvin FelixiAST [Catalytic activity/Vol]23 U/LVnzxhl24-44 [facility] DiagnosticsComment on above:Performed By: #### 496, 3660 #### [facility] of [address] , [address] [place] [address] Rfid Strategist: Toan Lara MD #### [id number] #### [facility] [address] [place], [place] [phone] Rfid Strategist: Parvin FelixiBilirubin [Mass/Vol]0.7 mg/dLNormal0.2-1.2 [facility] DiagnosticsComment on above:Performed By: #### 496, 6420 #### [facility] [address], [address] [place] [address] Rfid Strategist: Toan Lara MD #### 18201 #### [facility] [address] [place], [place] [phone] Rfid Strategist: Parvin FelixiBUN/CREATININE RATIOSEE NOTE:Normal6-Quest DiagnosticsComment on above:Result Comment: Not Reported: BUN and Creatinine are within reference range.Performed By: #### 496, 8240 #### [facility] [address], [address] [place] [address] Rfid Strategist: Toan Lara MD #### 96569 #### [facility] [address] [place] [address] Rfid Strategist: Parvin Ordoñez FlatiCalcium [Mass/Vol]9.3 mg/dLNormal8.6-10.3Quest DiagnosticsComment on above:Performed By: #### 496, 7500 #### [facility] [address], [address] [place] [address] Rfid Strategist: Toan Lara MD #### 90263 #### [facility] [address] [place] [phone] Rfid Strategist: Parvin Ordoñez FlatiChloride [Moles/Vol]105 mmol/KYvjyiu86-269 [facility] DiagnosticsComment on above:Performed By: #### 496, 5990 #### [facility] [address] [place] [address], [address] [place] [address] Rfid Strategist: Toan Lara MD #### 68465 #### [facility] [address] [place], [place] [address] Rfid Strategist: Parvin FelixiCO2 [Moles/Vol]26 mmol/TCkaemk37-02Vxkhe DiagnosticsComment on above:Performed By: #### 496, 4750 #### [facility] [address], [address] [place] [address] Rfid Strategist: Toan Lara MD #### 93793 #### [facility] [address] [place], [place] [phone] Rfid Strategist: Parvin Ordoñez FlatiCreatinine [Mass/Vol]0.84 mg/dLNormal0.70-1.28 [facility] DiagnosticsComment on above:Performed By: #### 496, 1820 #### [facility] [address], [address] [place] [address] Rfid Strategist: Toan Lara MD #### 74667 #### [facility] Rfid Strategist: Parvin FelixiGFR/1.73 sq M.predicted among non-blacks MDRD (S/P/Bld) [Vol rate/Area]93 mL/min/{1.73_m2}Normal> OR = 60[facility] Comment on above:Performed By: #### 496, 7160 #### [facility] [address], [address] [place] [address] Rfid Strategist: Toan Lara MD #### 99318 #### [facility] [address] [place], [place] [phone] Rfid Strategist: Parvin Ordoñez FlatiGlobulin (S) [Mass/Vol]2.8 g/dLNormal1.9-3.7 [facility] DiagnosticsComment on above:Performed By: #### 496, 0340 #### [facility] [address], [address] [place] [address] Rfid Strategist: Toan Lara MD #### 64084 #### [facility] [address] [place], [place] [phone] Rfid Strategist: Parvin Ordoñez FlatiGlucose [Mass/Vol]129 mg/lIGiyw80-63Adudx DiagnosticsComment on above:Result Comment: Fasting reference interval For someone without known diabetes, a glucose value >125 mg/dL indicates that they may have diabetes and this should be confirmed with a follow-up test.Performed By: #### 496, 7600 #### [facility] [address], [address] [place] [address] Rfid Strategist: Toan Lara MD #### 86157 #### [facility] [address] [place], [place] [phone] Rfid Strategist: Parvin Ordoñez FlatiPotassium [Moles/Vol]4.7 mmol/LNormal3.5-5.3 [facility] DiagnosticsComment on above:Performed By: #### 496, 6670 #### [facility] [address], [address] [place] [address] Rfid Strategist: Toan Lara MD #### 31337 #### [facility] [address] [place], [place] [phone] Rfid Strategist: Parvin Ordoñez FlatiProtein [Mass/Vol]7.1 g/dLNormal6.1-8.1Quest DiagnosticsComment on above:Performed By: #### 496, 0860 #### [facility] [address], [address] [place] [address] Rfid Strategist: Toan Lara MD #### 06060 #### [facility] [address] [place] [phone] Rfid Strategist: Parvin Ordoñez FlatiSodium [Moles/Vol]140 mmol/QHhiifq735-838Zndpg DiagnosticsComment on above:Performed By: #### 496, 7600 #### [facility] [address], [address] [place] [address] Rfid Strategist: Toan Lara MD #### 10563 #### [facility] [address] [place] [address] Rfid Strategist: Parvin FelixiUrea nitrogen [Mass/Vol]23 mg/dLNormal7-25 [facility] DiagnosticsComment on above:Performed By: #### 496, 7600 #### [facility] [address], [address] [place] [address] Rfid Strategist: Toan Lara MD #### 88836 #### [facility] [address] [place] [phone] Rfid Strategist: Parvin FelixiHEMOGLOBIN A1con 85-23-1139EVCICACILB A1c6.3 % of total HgbHigh<5.7Quest DiagnosticsComment on above:Result Comment: For someone without known diabetes, a [...] hemoglobin A1c for diagnosis of diabetes for children.Performed By: #### 496, 9590 #### [facility] [address], [address] [place] [address] Rfid Strategist: Toan Lara MD #### 71825 #### [facility] [address] [place] [phone] Rfid Strategist: Parvin FelixiLIPID PANEL, STANDARDon 61-36-9930Xwddhjsphib [Mass/Vol]242 mg/dLHigh<200Quest DiagnosticsComment on above:Order Comment: FASTING:YES FASTING: YESPerformed By: #### 496, 6430 #### [facility] [address], [address] [place], [place] [address] Rfid Strategist: Toan Lara MD #### 00901 #### [facility] [address] [place] [phone] Rfid Strategist: Parvin R FlatiCholesterol in HDL [Mass/Vol]40 mg/dLNormal> OR = 40Quest DiagnosticsComment on above:Order Comment: FASTING:YES FASTING: YESPerformed By: #### 496, 8480 #### [facility] [address], [address] [place] [address] Rfid Strategist: Toan Lara MD #### 80119 #### [facility] [address] [place], [place] [address] Rfid Strategist: Parvin FelixiCholesterol in LDL [Mass/Vol]142 mg/dLHigh [facility] DiagnosticsComment on above:Order Comment: FASTING:YES FASTING: YESResult Comment: Reference range: <100 Desirable range <100 mg/dL for primary prevention; <70 mg/dL for patients with CHD or diabetic patients with > or = 2 CHD risk factors. LDL-C is now calculated using the Marko calculation, which is a validated novel method providing better accuracy than the Friedewald equation in the estimation of LDL-C. Deion TORIBIO et al. MAHENDRA. 2013;310(19): 0420-9527 (http://education.Valderm.inDinero/faq/CBF024)Performed By: #### 496, 7245 #### [facility] [address], [address] [place] [address] Rfid Strategist: Toan Lara MD #### 54961 #### [facility] [address] [place], [place] [phone] Rfid Strategist: Parvin FelixiCholesterol.total/Cholesterol in HDL [Mass ratio]6.1 {ratio}High<5.0Quest DiagnosticsComment on above:Order Comment: FASTING:YES FASTING: YESPerformed By: #### 496, 4200 #### [facility] [address], [address] [place] [address] Rfid Strategist: Toan Lara MD #### 86385 #### [facility] [address] [place] [phone] Rfid Strategist: Parvin FelixiNON HDL ZNYVKNGSSPM372 mg/dL (calc)High<130 [facility] DiagnosticsComment on above:Order Comment: FASTING:YES FASTING: YESResult Comment: For patients with diabetes plus 1 major ASCVD risk factor, treating to a non-HDL-C goal of <100 mg/dL (LDL-C of <70 mg/dL) is considered a therapeutic option.Performed By: #### 496, 7600 #### [facility] [address] [facility], [address] [place] [address] Rfid Strategist: Toan Lara MD #### 12770 #### [facility] [address] [place] [phone] Rfid Strategist: Parvin FelixiTriglyceride [Mass/Vol]389 mg/dLHigh<150Quest DiagnosticsComment on above:Order Comment: FASTING:YES FASTING: YESResult Comment: If a non-fasting specimen was collected, consider repeat triglyceride testing on a fasting specimen if clinically indicated. Aaliyah et al. J. of Clin. Lipidol. 2015;9:129-169.Performed By: #### 496, 7600 #### [facility] [address] [facility], [address] [place] [address] Rfid Strategist: Toan Lara MD #### 30764 #### [facility] [address] [place] [phone] Rfid Strategist: Parvin Ocampo Visiton 19-17-1100Aqwfka-up visit [id number] Juan Miguel Jennings 1950 M Date Provider Department [place] 07/16/2024 ANUJA ARMSTRONG [facility] Family History Problem Relation Age of Onset Heart disease Mother Heart disease Father Family Status - Relation Status Age at Mother Father Level of Service:00459 DC OFFICE/OUTPATIENT ESTABLISHED MOD MDM 30 [facility]36on 35-68-164370Hcwd is his blood pressure running? We can have him try holding amlodipine to see if this will help. We can see how he's feeling at his follow-up appt next week.[facility] DaytonCB W/AUTO DIFFon 99-42-3282GGN IMMATURE GRAN0.04 K/uLNormal0.00-0.06Pathology Laboratories IncComment on above: Result Comment: UNLESS OTHERWISE INDICATED, ALL TESTING PERFORMED AT: [employer] [address] [place] [address] ABSORPTION AND ADSORPTION ENGINEER: JONI NI M.D. CLIA NUMBER [id number] CAP ACCREDITATION AUID [id number] NEUTROPHILS5.59 K/uL Normal1.9-8.0Pathology Laboratories IncBasophils (Bld) [#/Vol]0.05 10*3/uLNormal 0.0-0.2Pathology Laboratories IncBasophils/100 WBC (Bld)0.6 %Normal0-2Pathology Laboratories IncEosinophils (Bld) [#/Vol]0.37 10*3/uLNormal0.0-0.80Path[facility] Laboratories IncEosinophils/100 WBC (Bld)4.3 %Normal0-5Pathology Laboratories IncErythrocyte distribution width (RBC) [Ratio]13.0 %Kpnocb88.2-14.8Pathology Laboratories IncHematocrit (Bld) [Volume fraction]49.9 %Mwcrap94-88Vasenibmi Laboratories IncHemoglobin (Bld) [Mass/Vol]17.1 g/lWLdwbfu03.0-18.0Pathology Laboratories IncIMMATURE GRAN0.5 %Normal0-2Pathology Laboratories IncLymphocytes (Bld) [#/Vol]1.72 10*3/uLNormal0.9-5.2Pathology Laboratories IncLymphocytes/100 WBC (Bld)20.0 %Kqdpvi33-64Wcxtyhauq Laboratories IncMCH (RBC) [Entitic mass] 32.4 apEsup92.0-32.0Pathology Laboratories IncMCHC (RBC) [Mass/Vol]34.3 g/dL Akcalb88.0-35.0Pathology Laboratories IncMCV (RBC) [Entitic vol]95 fLNormal 75-100Pathology Laboratories IncMonocytes (Bld) [#/Vol]0.85 10*3/uLNormal0.1-1.0 Pathology Laboratories IncMonocytes/100 WBC (Bld)9.9 %Normal0-13Pathology Laboratories IncNeutrophils/100 WBC (Bld)64.7 %Ccussx95-39Zqyyvkyrm Laboratories XjjTRDUHWZL110 THOUS/QMKObx857-994Tvuvwqeos Laboratories IncRBC5.27 MILL/CMM Normal4.40-6.10Pathology Laboratories IncWBC8.6 THDS/CMMNormal3.6-11.0Pathology Laboratories Dmh37hu 68-89-144255Rvqkcrkcd stress test result from 05/17/2024: Paul Clemons, [...] start isosorbide and amlodipine. Sent to [facility] per his request. He will see Dr. Huddleston in clinic on 07/16/2024 in [place]. Do you need me to send something to [facility] or did you already?[facility] Documentationon [id number] Juan Miguel Jennings 1950 M Date Provider Department Center 06/08/2024 80941-FNINIRON SHERWOOD HVCANTICOAG [facility] HeartVAS Family History Problem Relation Age of Onset Heart disease Mother Heart disease Father Family Status - Relation Status Age at Mother Father Reason for Visit and Comments: PharmD Cardiology Consult [Other][facility] DaytonOrders Onlyon 48-24-1118Udrvpg [id number] Juan Miguel Jennings 1950 M Date Provider Department Center 06/02/2024 PAUL JAIMES BH CARD [place] [facility] Family History Problem Relation Age of Onset Heart disease Mother Heart disease Father Family Status - Relation Status Age at Mother FatherNoalUniMetroHealth [facility]ma [facility] 63-84-8519Hzdabxhwg Reminders From: Bertha Winter To: [place] - Hang Saavedra; Sent: 05/21/2024 12:20:20 EST Show up: [...] ) Other: PROVIDER RELATED REMINDER:_ ( ) 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 Lonnie et.al. JCEM 2017,102;6299-9509. PMID: [id number]. Performed at: - [facility] [id number] End[employer] Belt Finisher: Zeke Almaguer PhD, Phone: [phone] [facility] CBC WITH AUTO DIFFon 79-03-1793PGXBYAWOB ABSOLUTE FOYT1DHBF HealthcareBasophils/100 WBC (Bld)0.4 %0.2 - 2.0 %[facility] Eosinophils/100 WBC (Bld)4.2 %0.9 - 7.0 %NOM[facility] HealthcareErythrocyte distribution width (RBC) [Ratio]13.8 %11.0 - 15.0 %[facility] HealthcareHematocrit (Bld) [Volume fraction]53 %42.0 - 54.0 %[facility] HealthcareHemoglobin (Bld) [Mass/Vol]17.9 g/dL 14.0 - 18.0 g/dLSelect Specialty HospitalIMMATURE GRANULOCYTES ABS AUTO0.01NOMS [facility] Immature granulocytes/100 WBC (Bld)0.1 %0.0 - 0.5 %[facility] HealthcareInterpretation and review of laboratory resultsAbnormalNOAK HealthcareLYMPHOCYTES ABSOLUTE AUTO1.1LowNOMS HealthcareLymphocytes/100 WBC (Bld)15 %Low20.5 - 60.0 %[facility] HospitalH (RBC) [Entitic mass]32.9 pg25.9 - 34.0 pgSouthPointe HospitalHC (RBC) [Mass/Vol]33.8 g/dL29.9 - 35.2 g/dLSelect Specialty HospitalMCV (RBC) [Entitic vol]97.4 fL High80.0 - 94.0 fLSelect Specialty HospitalMONOCYTES ABSOLUTE AUTO0.9HighSelect Specialty Hospital Monocytes/100 WBC (Bld)12.2 %High1.7 - 12.0 %[facility] Specialty HospitalNEUTROPHILS ABSOLUTE AUTO4.8NOMS HealthcareNeutrophils/100 WBC (Bld)68.1 %43.0 - 75.0 %Select Specialty HospitalPlatelet mean volume (Bld) [Entitic vol]12.5 fL9.5 - 13.5 fLSelect Specialty HospitalTBH EO #0.3NOMS HealthcareTB QWV657RpyKGJI [facility] RBC5.44NOMS [facility] Elizabeth HospitalTB WBC7.1NOMS HealthcareCLINISYNCNHILLCREST HOSPITAL HENRYETTA [facility] HealthcareCA ECHO DOPPLER COMPLETEon 15-58-3133TxkHighlands[place] [address] Cardiology Report Signed Patient: JUAN MIGUEL JENNINGS MR#: [id number] : 1950 Acct:[id number] Age/Sex: 74 / M ADM Date: 05/22/24 Loc: CARD Attending Dr: PAUL CLEMONS APRN Ordering Physician: PAUL CLEMONS APRN Date of Service: 05/22/24 Procedure(s): CA echo doppler complete Accession Number(s): [id number] cc: JORDAN DUNCAN ; PAUL CLEMONS APRN Patient Name: JUAN MIGUEL JENNINGS MR#: [id number] : 1950 Exam Date: 05/22/2024 Ordering Doctor: PAUL CLEMONS DIESEL POWERPLANT MECHANIC ECHOCARDIOGRAM REPORT PROCEDURE: CA ECHO DOPPLER COMPLETE [...] Diego M.D. on 05/22/2024 at 17:02 Approved by (more content not included)...TBHRadiology, Radiologist, MD - 05/22/2024 [place] [address] Cardiology Report Signed Patient: JUAN MIGUEL JENNINGS MR#: [id number] : 1950 Acct:[id number] Age/Sex: 74 / M ADM Date: 05/22/24 Loc: CARD Attending Dr: PAUL CLEMONS APRN Ordering Physician: PAUL CLEMONS APRN Date of Service: 05/22/24 Procedure(s): CA echo doppler complete Accession Number(s): [id number] cc: JORDAN DUNCAN MELINDA APRN Patient Name: JUAN MIGUEL JENNINGS MR#: [id number] : 1950 Exam Date: 05/22/2024 Ordering Doctor: PAUL CLEMONS [facility] ECHOCARDIOGRAM REPORT PROCEDURE: CA ECHO DOPPLER [...] M.D. Signed By: 05/22/241706 DD/ 05 TD/TT: Supervisor Pigment Making: GIOVANNI HealthcareRadiology Study observation (narrative)GIOVANNI [facility] Elizabeth HospitalCA ECHO DOPPLER COMPLETEOrdered By: Radiologist Radiology on 72-84-6955QJPS Healthcare Work Phone: ambulatory Visit Summaryon 43-72-7418Xmujyzibpl Visit SummaryAmbulatory Visit Summary JUAN MIGUEL JENNINGS :1950 Visit Date:05/21/2024 Ambulatory Visit Instructions Your Diagnosis Hypogonadism Elevated PSA BPH with urinary obstruction OAB (overactive bladder) Your Care Team Attending Physician - KERI NOLASCO, Topher Ordoñez Primary Care Physician - DAKOTA NOLASCO, JORDAN Brown This Is Your Medications List Misc Prescription (METOPROLOL TARTRATE 100 MG TAB) aspirin (aspirin 81 mg oral tablet) brimonidine-brinzolamide ophthalmic (Simbrinza) cyclobenzaprine (cyclobenzaprine 10 mg Tab) [...] Where: [facility] [address] [place] [address]- Medications What How Much When Instructions Unchanged aspirin (aspirin 81 mg oral tablet) By Mouth Every day Unchanged brimonidine-brinzolamide ophthalmic (Simbrinza) Both eyes 2 times a [...] mg/ mL IM Richelle) 400 Milligram Intramuscular Every4 weeks Allergies No Known Allergies Problems Ongoing - Any problem that you are currently receiving treatment for. 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 This condition [...] sclerosis (MS). ??? Ea (more content not included)...NormalAultman Orrville HospitalUrology Office/Clinic Noteon 66-34-8360Ufgwttx Office/Clinic NoteUrology Office/Clinic Note Chief Complaint hypogonadism HPI Staff [...] Has not been able to donate blood, [facility] will not let him. Pt will talk to his oncologist in [place] to see if there is another way he can donate blood. Shares he got CBC drawn on 05/08 at [facility],no results on [facility], called lab and they did not have [...] onc to facilitate blood donation/get permission for [employer]. 2. Elevated PSA (R97.20: Elevated prostate specific [...] SAAVEDRA MD, URL [facility] [address] [place] [address]- Additional Instructions: f/u pending HGB/CBC and blood [...] 10 mg= 1 tab(s), (more content not included)...Normal [facility]ultman Orrville HospitalComment on above:Result Comment: Electronically Signed By: Topher SAAVEDRA MD\.br\Date and Time Signed: 05/21/24 12:18 EST\.br\Electronically Co-Signed By: Bertha Winter\.br\Date and Time Co- Signed: 05/21/24 12:17 ESTNM FAITH PERF SPECT REST STRon 75-64-3163[address] [address] Nuclear Medicine Report Signed Patient: JUAN MIGUEL JENNINGS MR#: [id number] : 1950 Acct:[id number] Age/Sex: 74 / M ADM Date: 05/17/24 Loc: CARD Attending Dr: PAUL CLEMONS APRN Ordering Physician: PAUL CELMONS APRN Date of Service: 05/17/24 Procedure(s): NM faith perf SPECT rest str Accession Number(s): [id number] cc: JORDAN DUNCAN ; PAUL CLEMONS APRN Patient Name: JUAN MIGUEL JENNINGS MR#: [id number] : 1950 Exam Date: 05/17/2024 Ordering Doctor: PAUL CLEMONS CNP RADIOLOGY REPORT PROCEDURE: NM FAITH PERF [...] LOCATION: Mid-anterior. Mid-inferior. Apical anterior. Apical inferior. [place]. SIZE: Large (5 or more segments). SEVERITY: [...] Signed By: 05/18/24 1007 DD/ 1006 TD/TT: Supervisor Pigment Making:TBHRadiology, Radiologist, - 05/18/2024 [place] [address] Nuclear Medicine Report Signed Patient: JUAN MIGUEL JENNINGS MR#: [id number] : 1950 Acct:[id number] Age/Sex: 74 / M ADM Date: 05/17/24 Loc: CARD Attending Dr: PAUL CLEOMNS APRN Ordering Physician: PAUL CLEMONS APRN Date of Service: 05/17/24 Procedure(s): NM faith perf SPECT rest str Accession Number(s): [id number] cc: JORDAN DUNCAN ; PAUL CLEMONS APRN Patient Name: JUAN MIGUEL JENNINGS MR#: [id number] : 1950 Exam Date: 05/17/2024 Ordering Doctor: PAUL CLEMONS CNP RADIOLOGY REPORT PROCEDURE: NM FAITH PERF [...] LOCATION: Mid-anterior. Mid-inferior. Apical anterior. Apical inferior. [place]. SIZE: Large (5 or more segments). SEVERITY: [...] Signed By: 05/18/24 1007 DD/ 1006 TD/TT: Supervisor Pigment Making: [facility] HospitalRadiology Study observation (narrative)[facility] FAITH PERF SPECT REST STROrdered By: Radiologist Radiology on [id number] Work Phone: aLL LIPID PROFILE (FASTING)on [id number] HDL RATIO 4.5NOMS HealthcareComment on above:3.3 - 4.4 LOW RISK 4.4 - 7.1 AVERAGE RISK 7.1 - 11.0 MODERATE RISK >11.0 HIGH RISK Cholesterol [Mass/Vol]189 mg/dLNINF - 200 mg/dLNOAK HealthcareCholesterol in HDL [Mass/Vol]42 mg/dL40 - 60 mg/dLNOAK HealthcareComment on above:> or =60 mg/dl - LOW CARDIOVASCULAR RISK <40 mg/dl - HIGH CARDIOVASCULAR RISK LDL CHOLESTEROL JHWXXBCUNO075.2 mg/dLNOAK HealthcareComment on above:<100 mg/dl OPTIMAL 100-129 mg/dl NEAR OR ABOVE OPTIMAL 130-159 mg/dl BORDERLINE HIGH 160-189 mg/dl HIGH >190 mg/dl VERY HIGH Magnesium [Mass/Vol]22.8 mg/dLNOAK HealthcareTriglyceride [Mass/Vol]114 mg/dL NINF - 150 mg/dLNOAK HealthcareCLINISYNCNOMS HealthcareOffice Visiton 05-02-2024 Follow-up [id number] Juan Miguel Jennings 1950 M Date Provider Department Center 05/02/2024 PAUL JAIMES CARD [facility] Family History Problem Relation Age of Onset Heart disease Mother Heart disease Father Family Status - Relation Status Age at Mother Father Level of Service:91230 DC OFFICE/OUTPATIENT ESTABLISHED MOD MDM 30 MIN Reason for Visit and Comments: Coronary Artery Disease [187] Hypertension [660278][facility] DaytonAmbulatory Visit Summaryon 05-07-1317Mdihtawcjp Visit SummaryAmbulatory Visit Summary JUAN MIGUEL JENNINGS :1950 Visit Date:04/23/2024 Ambulatory Visit Instructions Your Diagnosis Hypogonadism Your Care Team Attending Physician - Topher SAAVEDRA MD Primary Care Physician - DAKOTA NOLASCO, JORDAN Brown This Is Your Medications List [facility] [place] (METOPROLOL TARTRATE 100 MG TAB) aspirin (aspirin 81 mg oral tablet) brimonidine-brinzolamide ophthalmic (Simbrinza) cyclobenzaprine (cyclobenzaprine 10 mg Tab) [...] AM EST With: Where: [facility] [address] [address]- Tuesday 10:45 AM EST With: Topher SAAVEDRA MD Where: [facility] [address] [address]- Medications What How Much When Instructions Unchanged aspirin (aspirin 81 mg oral tablet) By Mouth Every day Unchanged brimonidine-brinzolamide ophthalmic (Simbrinza) Both eyes 2 times a [...] mg/ mL IM Richelle) 400 Milligram Intramuscular Every4 weeks Medications and Immunizations Administered Given Depo-Testosterone [...] you for choosing us for your care. [facility] SystemAmb[facility] Visit Summaryon 70-40-6704Anztknagie Visit SummaryAmbulatory Visit Summary JUAN MIGUEL JENNINGS :1950 Visit Date:03/27/2024 Ambulatory Visit Instructions Your Diagnosis Hypogonadism male Your Care Team Attending Physician - KERI NOLASCO, Topher Ordoñez Primary Care Physician - DAKOTA NOLASCO, JORDAN Brown This Is Your Medications List Misc Prescription (METOPROLOL TARTRATE 100 MG TAB) aspirin (aspirin 81 mg oral tablet) brimonidine-brinzolamide ophthalmic (Simbrinza) cyclobenzaprine (cyclobenzaprine 10 mg Tab) [...] AM EST With: Where: [facility] [address] [address]- Tuesday 10:45 AM EST With: KERI NOLASCO, Topher Ordoñez Where: [facility] [address] [address]- Medications What How Much When Instructions Unchanged aspirin (aspirin 81 mg oral tablet) By Mouth Every day Unchanged brimonidine-brinzolamide ophthalmic (Simbrinza) Both eyes 2 times a [...] mg/ mL IM Richelle) 400 Milligram Intramuscular Every4 weeks Medications and Immunizations Administered Given Depo-Testosterone [...] you for choosing us for your care. [facility] W/AUTO DIFFon 29-68-4001OTM IMMATURE GRAN0.02NormalPathology Laboratories IncABS NEUTROPHILS4.23 K/uLNormal 1.50-7.50Path[facility] Laboratories IncBasophils (Bld) [#/Vol]0.05 10*3/uLNormal 0.00-0.20[facility] Laboratories IncBasophils/100 WBC (Bld)0.7 %NormalPathology Laboratories IncEosinophils (Bld) [#/Vol]0.39 10*3/uLNormal0.00-0.50Path[facility] Laboratories IncEosinophils/100 WBC (Bld)5.8 %NormalPathology Laboratories Inc Erythrocyte distribution width (RBC) [Ratio]13.8 %Qvwguv38.5-15.0Path[facility] Laboratories IncHematocrit (Bld) [Volume fraction]54.3 %High40.0-51.0Path[facility] Laboratories IncHemoglobin (Bld) [Mass/Vol]17.8 g/zAEtdb62.5-17.0[facility] IncIMMATURE GRAN0.3 %NormalPathology Laboratories IncLymphocytes (Bld) [#/Vol]1.27 10*3/uLNormal1.00-4.00[facility] Lymphocytes/100 WBC (Bld)18.9 %NormalPathology Laboratories St. Joseph HospitalMCH (RBC) [Entitic mass]32.0 ynLxuclr52.0-33.0[facility] Laboratories IncMCHC (RBC) [Mass/Vol]32.8 g/nWPeoxzv98.0-36.0[facility] Laboratories IncMCV (RBC) [Entitic vol]97.7 zBRxenhg32.0-99.0[facility] Laboratories IncMonocytes (Bld) [#/Vol]0.77 10*3/uLNormal0.20-1.00[facility] IncMonocytes/100 WBC (Bld)11.4 % NormalPathology Laboratories IncNeutrophils/100 WBC (Bld)62.9 %NormalPathology Laboratories IncPlatelet mean volume (Bld) [Entitic vol]12.8 fLNormal9.3-13.0 [facility] Laboratories IncComment on above:Result Comment: [facility] [address] [place] [address] CLIA No. [id number] CAP Accreditation No. [id number] Steam Crane Operator: Shaunna Dee M.D.Platelets (Bld) [#/Vol]128 10*3/eJKmu893-420Hmwgttqpq Laboratories IncRBC (Bld) [#/Vol]5.56 10*6/uLNormal 4.50-6.10Path[facility] IncWBC (Bld) [#/Vol]6.7 10*3/uLNormal3.5-11.0 [facility] IncCOMPREHENSIVE METABOLIC PANEL WITH GFRon 02-22-2024 Albumin [Mass/Vol]4.8 g/dLNormal3.5-5.2Path[facility] IncALK PHOS82 U/L Zspypi80-413Ckpoizhaw Laboratories IncALT [Catalytic activity/Vol]26 U/LNormal 5-50Path[facility] Laboratories IncAnion gap [Moles/Vol]10.0 mmol/LNormal7.0-16.0 [facility] IncAST-SGOT28 U/LNormal9-50[facility] Bilirubin.direct [Mass/Vol]0.6 mg/dLNormal<=1.2[facility] Laboratories IncCalcium [Mass/Vol]9.5 mg/dLNormal8.5-10.5[facility] IncChloride [Moles/Vol] 104 mmol/TCqhiaf95-004Muelwbjll Laboratories IncCO2 [Moles/Vol]23 mmol/LNormal 19-31Path[facility] IncCreatinine [Mass/Vol]0.89 mg/dLNormal0.80-1.40 [facility] IncGFR/1.73 sq M.predicted among non-blacks MDRD (S/P/Bld) [Vol rate/Area]91 mL/min/{1.73_m2}Normal>60[facility] Glucose [Mass/Vol]138 mg/kPEmpy45-60Vezmcgjhg Laboratories IncPotassium [Moles/Vol]4.5 mmol/LNormal3.5-5.4Path[facility] IncProtein [Mass/Vol] 7.6 g/dLNormal6.1-8.3Path[facility] Laboratories IncSodium [Moles/Vol]137 mmol/L Zsnyuz627-175Nmlbjhqno Laboratories IncUrea nitrogen [Mass/Vol]18 mg/dLNormal 8-23Pathology Laboratories IncPOINT OF CARE GLUCOSEon 25-46-7368Bxzsozz [Mass/Vol]112 mg/dLCritically idmj05-161Jzl [facility] HospitalComment on above: Performed By: #### POCGLUC #### [facility] [address] [address] [address] Patria Fuentes AUTO DIFFon 45-46-6599ZEVO #0.0 103/ulNormal0.0-0.1The [facility]ville HospitalComment on above:Performed By: #### CBC #### [facility] [address] [address] [address] Patria SandersBasophils/100 WBC (Bld)0.5 %Normal0.2-2.0The [facility] Comment on above:Performed By: #### CBC #### [facility] [address] [address] [address] Patria Miranda #0.3 103/ulNormal0.0-0.7The [facility]ville HospitalComment on above: Performed By: #### CBC #### [facility] [address] [address] [address] Patria Zepedaosinophils/100 WBC (Bld)3.2 %Normal0.9-7.0The [facility] Comment on above:Performed By: #### CBC #### [facility] [address] [place] [address] Dr. Patria Zepedarythrocyte distribution width (RBC) [Ratio]14.5 %Optwlv99.0-15.0 The [facility] HospitalComment on above:Performed By: #### CBC #### [facility] [address] [place] [address] Dr. Patria SandersHematocrit (Bld) [Volume fraction]49.0 %Ldxzfy18.0-54.0The [facility] HospitalComment on above:Performed By: #### CBC #### [facility] [address] [place] [address] Dr. Patria SandersHemoglobin (Bld) [Mass/Vol]16.7 g/rNFdvlht54.0-18.0[facility] TroyComment on above:Performed By: #### CBC #### [facility] [address] [place] [address] Dr. Patria Chino #0.03 10e3/ulNormal0.00-0.03The [facility] HospitalComment on above:Performed By: #### CBC #### [facility] [address] [place] [address] Dr. Patria Chino %0.4 %Normal0.0-0.5The [facility] HospitalComment on above: Performed By: #### CBC #### [facility] [address] [place] [address] Dr. Patria Mcbride #1.1 103/ulCritically low1.2-3.8The [facility] Comment on above:Performed By: #### CBC #### [facility] [address] [place] [address] Dr. Patira Archerhocytes/100 WBC (Bld)14.5 %Critically low20.5-60.0[facility] Health TroyComment on above:Performed By: #### CBC #### [facility] [address] [place] [address] Dr. Patria MortensenUAL DIFF REQNONormalThe [facility] HospitalComment on above: Performed By: #### CBC #### [facility] [address] [address] [address] Patria Pollack (RBC) [Entitic mass]32.6 pvKswqoh09.9-34.0The [facility] HospitalComment on above:Performed By: #### CBC #### [facility] [address] [place] [address] Dr. Patria Pollack (RBC) [Mass/Vol]34.1 g/zONsaobo87.9-35.2The [facility] HospitalComment on above:Performed By: #### CBC #### [facility] [address] [place] [address] Dr. Patria Pollack (RBC) [Entitic vol]95.5 fLCritically high80.0-94.0The [facility] HospitalComment on above:Performed By: #### CBC #### [facility] [address] [place] [address] Dr. Patria Stokes #0.8 103/ulNormal0.3-0.8The [facility] HospitalComment on above:Performed By: #### CBC #### [facility] [address] [place] [address] Dr. Patria Ponceocytes/100 WBC (Bld)9.6 %Normal1.7-12.0The [facility] Comment on above:Performed By: #### CBC #### [facility] [address] [place] [address] Dr. Patria Hargrove #5.6 103/ulNormal1.4-6.5The [facility] HospitalComment on above:Performed By: #### CBC #### [facility] [address] [place] [address] Dr. Patria Núñezutrophils/100 WBC (Bld)71.8 %Yrudcf01.0-75.0The [facility] HospitalComment on above:Performed By: #### CBC #### [facility] [address] [place] [address] Dr. Patria Nylet mean volume (Bld) [Entitic vol]11.6 fLNormal9.5-13.5The [facility] HospitalComment on above:Performed By: #### CBC #### [facility] [address] [place] [address] Dr. Patria SandersPLT154 103/waHhtkfy364-658Biq [facility] HospitalComment on above: Performed By: #### CBC #### [facility] [address] [place] [address] Dr. Patria SandersRBC5.13 106/ulNormal4.70-6.10The [facility] HospitalComment on above:Performed By: #### CBC #### [facility] [address] [place] [address] Dr. Patria SandersWBC7.8 103/ulNormal4.0-11.0The [facility] HospitalComment on above: Performed By: #### CBC #### [facility] [address] [place] [address] Dr. Patria SandersPROF CHEM 8 (BAS METB)on 61-86-5078Whyma gap [Moles/Vol]11.4 mmol/LNormalKettering Health TroyComment on above:Performed By: #### BMP #### [facility] [address] [place] [address] Dr. Patria SandersCalcium [Mass/Vol]9.1 mg/dLNormal8.5-10.1[facility] Comment on above:Performed By: #### BMP #### [facility] [address] [place] [address] Dr. Patria SandersChloride [Moles/Vol]104 mmol/WMzkgtz13-821Esj [facility] Comment on above:Performed By: #### BMP #### [facility] [address] [place] [address] Dr. Patria SandersCO2 [Moles/Vol]28.7 mmol/BArlqpd04.0-32.0The [facility] Comment on above:Performed By: #### BMP #### [facility] [address] [place] [address] Dr. Patria SandersCreatinine [Mass/Vol]0.80 mg/dLNormal0.70-1.30The [facility] HospitalComment on above:Performed By: #### BMP #### [facility] [address] [place] [address] Dr. Patria ZepedaGFR-AF ALGERIAN>60Normal>=60The [facility] HospitalComment on above:Performed By: #### BMP #### [facility] [address] [place] [address] Dr. Patria ZepedaGFR-NON AF ALGERIAN>60Normal>=60The [facility] HospitalComment on above:Performed By: #### BMP #### [facility] [address] [place] [address] Dr. Patria SandersGlucose [Mass/Vol]101 mg/aQVslyer47-974Kta [facility] Comment on above:Performed By: #### BMP #### [facility] [address] [place] [address] Dr. Patria SandersPotassium [Moles/Vol]4.1 mmol/LNormal3.5-5.1The [facility] Comment on above:Performed By: #### BMP #### [facility] [address] [place] [address] Dr. Patria SadnersSodium [Moles/Vol]140 mmol/EAiiqkq038-441Gnc [facility] Comment on above:Performed By: #### BMP #### [facility] [address] [place] [address] Dr. Patria SandersUrea nitrogen [Mass/Vol]11.0 mg/dLNormal7.0-18.0The [facility] HospitalComment on above:Performed By: #### BMP #### [facility] [address] [place] [address] Dr. Patria Hare nitrogen/Creatinine [Mass ratio]13.8 mg/mgNormalThe [facility] HospitalComment on above:Performed By: #### BMP #### [facility] [address] [place] [address] Dr. Patria SalgueroIMEmadhu 66-72-4951LLF Coag (PPP) [Relative time]1.02 {INR} NormalThe [facility] HospitalComment on above:Performed By: #### PTT, PT #### [facility] [address] [place] [address] Dr. Patria Jaquez GUIDELINESSEE BELOWNormalThMercy Health St. Rita's Medical CenterComment on above:Result Comment: DESIRED INR: 2.0 - 3.0 CONDITIONS NOT LISTED BELOW 2.5 - 3.5 FOR PROSTHETIC HEART VALVE REPLACEMENT 2.5 - 3.5 RECURRENT THROMBOSIS Performed By: #### PTT, PT #### [facility] [address] [place] [address] Dr. Patria Shearer Coag (PPP) [Time]10.8 sNormal9.0-11.6ThMercy Health St. Rita's Medical Center Comment on above:Performed By: #### PTT, PT #### [facility] [address] [place] [address] Dr. Patria Olivier 82-54-4261iLZN Coag (Bld) [Time]32.0 lDmxyku90.3-36.2[facility] TroyComment on above:Performed By: #### PTT, PT #### [facility] [address] [place] [address] Dr. Patria SandersCovid-19 PCR ([facility])on 95-21-1371LSJE-CoV-2 (COVID-19) RNA NANCY+probe Ql (Unsp spec)Not detectedNormalNOT DETECTEDKettering Health Troy Comment on above:Result Comment: This test is not yet approved or cleared by the [place] FDA. When there are no FDA-approved or cleared tests available, and other criteria are met, FDA can make tests available under an emergency access mechanism called an Emergency Use Authorization (EUA). The EUA for this test is supported by the [place] of Health and Human Service's (HHS's) declaration that circumstances exist to justify the emergency use of in vitro diagnostics for the detection and/or diagnosis of the virus that causes COVID- 19. This EUA will remain in effect (meaning [...] of clinical signs and symptoms consistent with SARS-CoV-2.Performed By: #### CVDTBH #### [facility] [address] [address] [address] Patria SandersHemoglobin A1Con 75-12-1324RWG040.37NormalNorthern Vander[facility] SpecialistComment on above:Performed By: #### A1C #### [facility] [address] [place], [place] [id number] (Bld) [Mass fraction]6.1 %High4.0-6.0[facility]ern The Institute Of LivingComment on above:Performed By: #### A1C #### [facility] [address] [place], [place] [id number] 15-34-3574JGMZPX368.70 ng/dLNormal 193.00-740.00[facility]ern The [facility] Of LivingComment on above:Performed By: #### TEST #### [facility] [address] [place], [place] [id number] Noteon 76-25-0571KGQ IP Note OR TranscriptionNoal [facility] Vital Signs Date TimeVital SignValuePerforming DtphmhwemQfwisjgy32-04-8756 08:32-0500Body .1 cmSteven Rusher DPM Work Phone: [facility] HospitalMgmgnyxnmo69-79-1231 08:32-0500Body mass index (BMI) [Ratio]40.1 kg/y5Tlcumi Rusher DPM Work Phone: [phone] HospitalRohckbgrxx29-34-0439 08:32-0500Body nyyukh018.4 kgSteven Rusher DPM Work Phone: [phone] [place], [place] [address]Ddqonxfbjz58-39-7050 15:48-0400Body wytefv659.1 cmSteven Rusher DPM Work Phone: [phone] HospitalUvlzucbhye13-30-4561 15:48-0400Body mass index (BMI) [Ratio]40.1 kg/h3Ycqzfa Rus DPM Work Phone: [facility] HospitalGfjbdkcjsq97-49-2130 15:48-0400Body uayjhj827.4 kgStabbie Young DPM Work Phone: [facility] HospitalHoqpmvqrou23-92-3224 09:47-0400Body tyjohk728.1 cmEcharlene Duncan MD Work Phone: [phone] HospitalTixfbsnzmg89-74-6936 09:47-0400Body mass index (BMI) [Ratio]40.1 kg/e4PrptoaJordan Duncan MD Work Phone: [phone] HospitalOolstvfhep70-07-1196 09:47-0400Body guomxt160.4 kgJordan Duncan MD Work Phone: [phone] HospitalYtrhbzbhva75-79-2602 09:47-0400Diastolic blood ndwuugrf17 mm[Hg]Jordan Duncan MD Work Phone: [phone] HospitalXwcvumdrdm68-40-0968 09:47-0400Heart rate57 /min Jordan Duncan MD Work Phone: [phone] HospitalYyjkqrlkpy64-90-4901 09:47-6189PwR6% (BldA) [Mass fraction]96 %Jordan Duncan MD Work Phone: [phone] HospitalQqhllmtufe81-72-2290 09:47-0400Systolic blood yklmreha175 mm[Hg]Jordan Duncan MD Work Phone: [phone] [place], [place] [address]Tcarbefzxm44-91-6793 09:24-0400Body snjonq433.1 Cortney Duncan MD Work Phone: [phone] HospitalIqkejtxcna86-17-9803 09:24-0400Body mass index (BMI) [Ratio]40.1 kg/r2EsrkvoJordan Duncan MD Work Phone: [phone] [place], [place] [address]Qfmxbifzkj10-54-7922 09:24-0400Body zpdexs405.4 kgJordan Duncan MD Work Phone: [phone] [place], [place] [address]Sytsxqgnqf49-74-7327 09:24-0400Diastolic blood mm[Hg]Jordan Duncan MD Work Phone: [phone])[facility]-9618[facility] HospitalGbghlqzkti07-69-1137 09:24-0400Heart rate63 /min Jordan Duncan MD Work Phone: [phone] [place], [place] 7374704-15-2025 09:24-9262BwQ5% (BldA) [Mass fraction]98 %Jordan Duncan MD Work Phone: [phone])[address] [place], [place] 7374704-15-2025 09:24-0400Systolic blood qenaymex719 mm[Hg]Jordan Duncan MD Work Phone: [phone])[address] [place], [place] 7374702-19-2025 10:01-0500Body vdxboz639.1 cmEcharlene Duncan MD Work Phone: [phone] [place], [place] 7374702-19-2025 10:01-0500Body mass index (BMI) [Ratio]39.64 kg/b6UwudwlJordan Duncan MD Work Phone: [phone])[address] [place], [place] 7374702-19-2025 10:01-0500Body abihnb895.58 kgJordan Duncan MD Work Phone: [phone] [place], [place] 7374702-19-2025 10:01-0500Diastolic blood tfregcmn81 mm[Hg]Jordan Duncan MD Work Phone: [phone])[address] [place], [place] 7374702-19-2025 10:01-0500Heart rate58 /min Jordan Duncan MD Work Phone: [phone])[address] [place], [place] 7374702-19-2025 10:01-4752CsC0% (BldA) [Mass fraction]98 %Jordan Duncan MD Work Phone: [phone])[address] [place], [place] 7374702-19-2025 10:01-0500Systolic blood budpmfuv893 mm[Hg]Jordan Duncan MD Work Phone: [phone] [place], [place] 7374701-30-2025 13:45-0500Diastolic blood usnhgyxt76 mm[Hg][facility]thz [facility]2025 13:45-0500Heart rate77 /minMthz [facility]01-30-2025 13:45-0500Systolic blood mm[Hg][facility]01-30-2025 13:16-0500Body .5 [degF][facility] 07-05-2024 13:16-0500Respiratory rate18 /minMthz [facility]12-16-2024 10:44-0500Blood Pressure LocationTopher SAAVEDRA [facility]12-16-2024 10:44-0500Body xaljnnquuvv28.6 [degF]Topher SAAVEDRA [facility]12-16-2024 10:44-0500Diastolic blood mm[Hg]Topher SAAVEDRA [facility]12-16-2024 10:44-0500Heart rate58 /minPatrick SAAVEDRA [facility]12-16-2024 10:44-0500Respiratory rate16 /minTopher SAAVEDRA [facility]12-16-2024 10:44-0500Systolic blood dlgqoaar766 mm[Hg]Topher SAAVEDRA [facility]12-10-2024 10:21-0500Body zowbtc396.1 cmSteven Toddher DPM Work Phone: [facility] HospitalEotakayzmr25-25-1418 10:21-0500Body mass index (BMI) [Ratio]40.45 kg/p9Isuwxp Rusher DPM Work Phone: [facility] HospitalEkkfbwyczg78-07-0723 10:21-0500Body olkkdm310.76 kgSteven Rusher DPM Work Phone: [phone] [place], [place] 5753411-18-2024 10:41-0500Body sisudg832.1 cmSteven Rusher DPM Work Phone: [phone] [place], [place] 5753411-18-2024 10:41-0500Body mass index (BMI) [Ratio]40.45 kg/f7Kyebiz Rusher DPM Work Phone: [phone])[address] [place] [address]-18-2024 10:41-0500Body tmyuvc516.76 kgSteven Rusher DPM Work Phone: [phone] [place], [place] 5753410-24-2024 12:49-0400Body yyvbvc585.1 cmSteven Rusher DPM Work Phone: [phone] [place], [place] 5753410-24-2024 12:49-0400Body mass index (BMI) [Ratio]40.45 kg/e3Jiimeo Rusher DPM Work Phone: [phone] [place], [place] 5753410-24-2024 12:49-0400Body wgedqj281.76 kgSteven Rusher DPM Work Phone: [phone] [place], [place] 5753410-22-2024 14:00-0400Body jeebru047.1 cmEcharlene Duncan MD Work Phone: [phone] [place], [place] 7374710-22-2024 14:00-0400Body mass index (BMI) [Ratio]40.45 kg/w0TgjpdfJordan Duncan MD Work Phone: [phone])[address] [place], [place] 7374710-22-2024 14:00-0400Body hagzll136.76 kgJordan Duncan MD Work Phone: [phone] [place] [address]-22-2024 14:00-0400Diastolic blood diocceiu89 mm[Hg]Jordan Duncan MD Work Phone: [phone] [place], [place] 7374710-22-2024 14:00-0400Heart rate71 /min Jordan Duncan MD Work Phone: [phone] [place], [place] 7374710-22-2024 14:00-3842MhI1% (BldA) [Mass fraction]97 %Jordan Duncan MD Work Phone: [phone])[address] [place] [address]-22-2024 14:00-0400Systolic blood dipdyieb012 mm[Hg]Jordan Duncan MD Work Phone: [facility] HospitalPxpgovevpv36-10-7516 09:41-0400Body iniziv506.1 cmSteven Rusher DPM Work Phone: [facility] HospitalGxjoorjeen29-16-6572 09:41-0400Body mass index (BMI) [Ratio]40.45 kg/n0Cmmblc Rusher DPM Work Phone: [facility] HospitalGjkuplzoso25-03-4626 09:41-0400Body jojahh403.76 kgSteven Toddher DPM Work Phone: [phone] [place], [place] [address]Syizrmjdza74-42-6905 10:38-0400Blood Pressure LocationPatrick SAAVEDRA [facility]07-01-2024 10:38-0400Body ghfoytcnlat66.6 [degF]Topher SAAVEDRA [facility] [facility]07-[facility]2024 10:38-0400Diastolic blood clgmewyx04 mm[Hg]Topher SAAVEDRA [facility]07-01-2024 10:38-0400Heart rate69 /minPatrick SAAVEDRA [facility]07-01-2024 10:38-0400Respiratory rate16 /minPatrick SAAVEDRA [facility]07-01-2024 10:38-0400Systolic blood eznwbtko521 mm[Hg]Topher SAAVEDRA [facility]02-13-2024 10:37-0500Body ijhnsp050.1 cmSteven Rusher DPM Work Phone: [phone] [place], [place] [address]Bipdbvfrlw10-22-8593 10:37-0500Body mass index (BMI) [Ratio]39.87 kg/f2Hhsykzabbie Ibrahim DPM Work Phone: [facility] HospitalTvsrlaujje76-61-5250 10:37-0500Body .49 kgSteven Alexandria DPM Work Phone: [facility] HospitalRmiaqeptzk20-59-2535 10:33-0500Blood Pressure LocationPaScodixk Hiptype [facility]01-15-2024 10:33-0500Diastolic blood cejprdot97 mm[Hg]Topher SAAVEDRA [facility]01-15-2024 10:33-0500Heart rate70 /minTryLife [facility]01-15-2024 10:33-0500Respiratory rate16 /minPaLumenpulse [facility]01-15-2024 10:33-0500Systolic blood xoqmghdh606 mm[Hg]Topher SAAVEDRA [facility]06-02-2023 10:12-0400Blood Pressure LocationPaScodixk SAAVEDRA [facility]06-02-2023 10:12-0400Diastolic blood kbtepkzc58 mm[Hg]Topher SAAVEDRA [facility]06-02-2023 10:12-0400Heart rate68 /minPaLumenpulse [facility]06-02-2023 10:12-0400Respiratory rate16 /minPaLumenpulse [facility]06-02-2023 10:12-0400Systolic blood oniusmua285 mm[Hg]Topher SAAVEDRA [facility]05-31-2023 14:34-0400Body fwxlqlrbles45.5 [degF]Mthz Schedule[facility]2023 14:34-0400Diastolic blood rolieaqp22 mm[Hg]Mthz Schedule [facility] [place]05-31-2023 14:34-0400Heart rate72 /minMthz ScheduleBON [facility] [place]05-31-2023 14:34-0400Respiratory rate18 /minMthz ScheduleBON [facility] [place]05-31-2023 14:34-0400Systolic blood afsawutd263 mm[Hg]Mthz ScheduleB[facility] [place]01-13-2023 08:55-0500Blood Pressure Location Topher SAAVEDRA [facility]01-13-2023 08:55-0500Diastolic blood ynieiwwe87 mm[Hg]Topher SAAVEDRA [facility]01-13-2023 08:55-0500Heart rate80 /minPatrick SAAVEDRA [facility]01-13-2023 08:55-0500Respiratory rate16 /minPatrick SAAVEDRA [facility]01-13-2023 08:55-0500Systolic blood untiqxpz532 mm[Hg]Topher SAAVEDRA [facility]12-12-2022 09:43-0500Blood Pressure LocationTopher SAAVEDRA [facility]12-12-2022 09:43-0500Diastolic blood wglkuyyw15 mm[Hg]Topher SAAVEDRA [facility]12-12-2022 09:43-0500Heart rate63 /minPatrick SAAVEDRA [facility]12-12-2022 09:43-0500Systolic blood uhhulnks724 mm[Hg]Topher SAAVEDRA [facility]08-29-2022 09:48-0400Blood Pressure LocationPatrick SAAVEDRA [facility]08-29-2022 09:48-0400Diastolic blood mm[Hg]Topher SAAVEDRA [facility]08-29-2022 09:48-0400Heart rate84 /minPatrick SAAVEDRA [facility]08-29-2022 09:48-0400Respiratory rate16 /minPatrick SAAVEDRA [facility]08-29-2022 09:48-0400Systolic blood dlksswye73 mm[Hg]Topher SAAVEDRA [facility]08-25-2022 13:48-0400Diastolic blood fwmlwnni30 mm[Hg]Mthz Lab Schedule [facility] [place]08-25-2022 13:48-0400Heart rate56 /minMthz Lab Schedule [facility] [place]08-25-2022 13:48-0400Respiratory rate18 /minMthz Lab ScheduleBON [facility] [place]08-25-2022 13:48-0400Systolic blood oppnexnl788 mm[Hg]Mthz Lab ScheduleB[facility] [place]08-25-2022 13:25-0400Body oywqlpymwbb45.39 [degF]Mthz [facility]21 12:25-0400Body gfufgcwshfk04.81 [degF][facility]thz [facility] [employer] Work Phone: 1(952) 130-487405-19-2021 12:25-0400Heart rate67 /minMthz Schedule [facility] [employer] Work Phone: 1(504) 406-620702-21-2020 08:03-0500Body Wgwovlstpou20.3 [degF]Mthz [facility] [place], [id number] 08:03-0500BP Nyfcaauon49 mm[Hg][facility] [place], [id number] 08:03-0500BP Tntbiyxi067 mm[Hg][facility] [place], HH90-69-2228 08:03-0500Pulse (Heart Rate)63 /minMthz [facility] [place], VH75-01-4840 08:03-0500Respiratory Rate20 /minMthz [facility] [place], XL38-36-7945 08:02-0400Body Onxmnysyvdq44.69 [degF] Mthz [facility] [place], KU52-48-2338 08:02-0400BP Crnqeluug14 mm[Hg][facility] [place], CU11-79-1997 08:02-0400BP Udgevzes999 mm[Hg][facility] [place], VA92-39-3936 08:02-0400Pulse (Heart Rate)74 /minMthz [facility] [place], RF54-49-3693 08:02-0400Respiratory Rate20 /minMthz [facility] [place], OS10-24-2444 08:03-0400Body Bojixynfyia76.91 [degF] Mthz [facility] [place], IK53-74-4322 08:03-0400BP Joxdsisoe16 mm[Hg][facility] [place], [id number] 08:03-0400BP Nixcmiuk799 mm[Hg][facility] [place], WU59-19-6448 08:03-0400Pulse (Heart Rate)63 /minMthz [facility], MN87-36-9677 08:03-0400Respiratory Rate20 /minMthz [facility], [place] Encounters Encounter DateEncounter TypeCare ProviderFacilityStart: 58-88-6949zlxveztnsrnalini SAAVEDRAFacility:DEBBIE BellevueStart: 04-09-2025 End: 82-46-7040Myegoj flowsheetSteven A Rusher DPM Work Phone: noWinnebago Indian Health Servicest PodiatryStart: 04-09-2025 End: 29-10-2146Lqmohf flowsheetSteven A Rusher DPM Work Phone: noAK [facility] PodiatryStart: 04-09-2025 End: 57-37-8550Yoerlw follow up visit related to original pxSteven A Rusher DPM Work Phone: [email or web address] PodiatryComment on above:Diabetic polyneuropathy associated with type 2 diabetes mellitus (HCC) (Primary Dx); Nontraumatic amputation of foot, left (HCC); Nontraumatic amputation of foot, right (HCC)Start: 03-26-2025 End: 42-98-4236Skquzf Vance Duncan MD Work Phone: NOAK [facility] MedicineStart: 03-25-2025 End: 45-01-5383Xfxhqk outpatient visit 15 minutesSteven A Rusher DPM Work Phone: [email or web address] PodiatryComment on above:Diabetic polyneuropathy associated with type 2 diabetes mellitus (HCC) (Primary Dx); Nontraumatic amputation of foot, left (HCC); Nontraumatic amputation of foot, right (HCC); Acquired keratodermaStart: 03-25-2025 End: 95-74-7897aucuyimcdmFNIMBY A RUSHERNot AvailableStart: 03-25-2025 End: 87-75-4896Bbzblu flowsheetSteven A Rusher DPM Work Phone: [email or web address] PodiatryStart: 03-25-2025 End: 24-62-5654Skwtsd flowsheetSteven A Rusher DPM Work Phone: NOMS [facility] PodiatryStart: 03-19-2025 End: 17-26-9657Ocgnueparmjit Duncan MD Work Phone: N[facility] MedicineStart: 03-19-2025 End: 94-78-7501Agbhpe Florencio Duncan MD Work Phone: N[facility] [address] Family MedicineStart: 03-19-2025 End: 92-99-1262lbdktdyyvmFTISGN J HEMEYERNot AvailableStart: 03-19-2025 End: 89-74-2943Nlokzx outpatient visit 25 minutesEdarsh Duncan MD Work Phone: N[facility] Family MedicineComment on above:Type 2 diabetes mellitus with diabetic polyneuropathy, without long-term current use of insulin (HCC); Type 2 diabetes mellitus with diabetic microalbuminuria, without long-term current use of insulin (HCC); Essential hypertension; Microalbuminuria; Mixed hyperlipidemia; Adverse reaction to statin medication; Former smoker; Morbid obesity ([facility]-HCC); DyspepsiaStart: 02-08-2025 End: 17-58-0763qbylftfmtfWussytu R WATERSFacility:EU BellevueStart: 02-08-2025 End: 10-16-2330Bpqsmoz encounter procedurePaluciano SAAVEDRA [facility] start: 01-15-2025 End: 59-50-8589JzoxrfSevkox J Hemeyer MD Work Phone: noMS [address] Family MedicineComment on above: DyspepsiaStart: 01-14-2025 End: 96-27-8003Gbyvbwzdh Result EncounterGeneric External Data ProviderNOMS External Department UnsolicitedStart: 01-14-2025 End: 92-63-1844Rplzvrilt Result EncounterGeneric External Data ProviderNOMS External Department UnsolicitedStart: 01-01-2025 End: 38-38-2309Zzyxbuowi Result EncounterGeneric External Data ProviderNOMS External Department UnsolicitedStart: 01-01-2025 End: 23-24-7466Tpqlneymo Result EncounterGeneric External Data ProviderNOMS External Department UnsolicitedStart: 01-01-2025 End: 86-00-7980rkrzgalhntCfkfiMercy Health St[facility] Work Phone: Start: 01-01-2025 End: 60-95-0952Upgmquva ReferredLehigh [facility] [address] MS-LAB Path Spec [facility] HospStart: 12-28-2024 End: 91-69-0626Dwltimmes Result EncounterGeneric External Data ProviderNOMS External Department UnsolicitedStart: 12-28-2024 End: 81-06-1809Ptojoacxi Result EncounterGeneric External Data ProviderNOMS External Department UnsolicitedStart: 12-26-2024 End: 18-91-0737Dzbhhhwxe Result EncounterGeneric External Data ProviderNOMS External Department UnsolicitedStart: 12-26-2024 End: 22-25-4328Rfhzpwckg Result EncounterGeneric External Data ProviderNOMS External Department UnsolicitedStart: 12-21-2024 End: 92-02-9334pursacueuuSWGEWilson [address] Hospitaltart: 12-21-2024 End: 01-49-1854Tfvjxqviu for other preprocedural examinationADAAvita Health System Bucyrus Hospitaltart: 12-03-2024 End: 34-55-0407Wsugdeyqb Abby Duncan MD Work Phone: NOMS CI FM 100Start: 10-18-2024 End: 00-94-5348Lfxfqiuuj Abby Duncan MD Work Phone: NOM[facility] CI FM 100Start: 09-18-2024 End: 60-52-7100Nxigri Florencio Duncan MD Work Phone: NOM[facility] CI FM 100Start: 09-18-2024 End: 72-30-8042Nrsthv Florencio Duncan MD Work Phone: NOMS CI FM 100Start: 09-18-2024 End: 36-43-0012Eyzjir outpatient visit 25 minutesEdarsh Duncan MD Work Phone: NOMS CI FM 100Comment on above:Essential hypertension ([facility]/HCC) (Primary Dx); Microalbuminuria; Type 2 diabetes mellitus with diabetic microalbuminuria, without long-term current use of insulin ([facility]/HCC); Type 2 diabetes mellitus with diabetic polyneuropathy, without long-term current use of insulin ([facility]); Mixed hyperlipidemia ([facility]); Adverse reaction to statin medicationStart: 09-18-2024 End: 75-95-2873czlenhyjrfPPPJFU J HEMEYERNot AvailableStart: 09-13-2024 End: 70-11-6585ZiqzpyUwwfmw J Hemeyer MD Work Phone: NOMS CI FM 100Comment on above:DyspepsiaStart: 07-25-2024 End: 25-53-8252Ujdyku flowsMonique Duncan MD Work Phone: NOM[facility] CI FM 100Start: 07-25-2024 End: 07-56-6339Lidbip flowsheetJordan Duncan MD Work Phone: NOM[facility] CI FM 100Start: 07-25-2024 End: 69-25-3457Dlmihjq encounter procedureJordan Duncan MD Work Phone: NOMS CI FM 100Comment on above:Encounter for Medicare annual wellness exam (Primary Dx); Advance directive in chart; Encounter for screening for other disorder; Screening for alcohol problem; Morbid (severe) obesity due to excess calories ([facility]); BMI 39.0-39.9,adult; Type 2 diabetes mellitus with diabetic polyneuropathy, without long-term current use of insulin ([facility]/HCC); Type 2 diabetes mellitus with diabetic microalbuminuria, without long-term current use of insulin ([facility]); Type 2 diabetes mellitus with foot ulcer (CODE) ([facility]); Non-pressure chronic ulcer of other part of unspecified foot with unspecified severity ([facility]); Partial nontraumatic amputation of right foot ([facility]/HCC); Partial nontraumatic amputation of foot, left (CMS/HCC); Atherosclerosis of hughes coronary artery of hughes heart without angina pectoris (CMS/HCC); History of myocardial infarction (CMS/HCC); Mixed hyperlipidemia (CMS/HCC); Adverse reaction to statin medication; Primary open angle glaucoma of both eyes, unspecified glaucoma stage (CMS/HCC) Start: 07-25-2024 End: 41-15-3728fpgldhfafhXCUURO J HEMEYERNot AvailableStart: 07-16-2024 End: 55-24-3442ctexivyujqXGGTDU [place] Start: 07-05-2024 End: 77-76-6054krdpxkqmpbAZZDRLong [facility] HospitalStart: 07-05-2024 End: 67-24-4419Ndgmhjxauu hospital visit by physicianG[facility] Med On[facility] Fast Track Chair 1 ScheduleELL[facility] MED ONCComment on above:Polycythemia (Primary Dx)Start: 06-18-2024 End: 81-97-1565Qwdqskhuk Abby Duncan MD Work Phone: NOMS CI FM 100Start: 05-22-2024 End: 27-45-4485Jebamrfdy Result EncounterGeneric External Data ProviderNOMS External Department UnsolicitedStart: 05-22-2024 End: 97-61-7070Mkxttledj Result EncounterGeneric External Data ProviderNOMS External Department UnsolicitedStart: 05-21-2024 End: 30-98-8087lzjdpllkczWfzirlc R WATERSFacility:EU BellevueStart: 05-21-2024 End: 88-01-7021Jpwxwka encounter procedureTopher SAAVEDRA [facility] start: 05-18-2024 End: 86-87-0047Hmjgoelcl Result EncounterGeneric External Data ProviderNOMS External Department UnsolicitedStart: 05-18-2024 End: 31-51-6191Umjrxhlot Result EncounterGeneric External Data ProviderNOMS External Department UnsolicitedStart: 05-15-2024 End: 17-00-1498mqwhucwapzOAATKQ A RUSHERNot AvailableStart: 05-15-2024 End: 11-20-0499Uiejyk follow up visit related to original pxSteven A Rusher DPM Work Phone: NOMS PODIATRYComment on above:Diabetic polyneuropathy associated with type 2 diabetes mellitus (CMS/HCC) (Primary Dx); Nontraumatic amputation of foot, left (CMS/HCC); Nontraumatic amputation of foot, right (CMS/HCC)Start: 05-08-2024 End: 80-51-0520Hwqpcorxk Result EncounterGeneric External Data ProviderNOMS External Department UnsolicitedStart: 05-08-2024 End: 97-16-8971Xyxzvmdql Result EncounterGeneric External Data ProviderNOMS External Department UnsolicitedStart: 85-18-7963edgacqiwzcJpwsqkq R WATERS [facility]: 05-02-2024 End: 31-89-7593ifsivkkgsxQXWDEUGProMedica Memorial Hospitaltart: 04-23-2024 End: 54-40-7835Sbgusi flowsheetSteven A Rusher DPM Work Phone: noms PODIATRYStart: 04-23-2024 End: 01-41-6443Xohinl flowsheetSteven A Rusher DPM Work Phone: NOAZ PODIATRYStart: 04-23-2024 End: 63-54-9893crefnridnjIxsgtre R WATERSFacility:[facility] Caldwellrt: 04-23-2024 End: 62-77-7894Sqebrcp encounter procedureTopher SAAVEDRA [facility] Tj comment on above:Diabetic polyneuropathy associated with type 2 diabetes mellitus (CMS/HCC) (Primary Dx); Nontraumatic amputation of foot, left (CMS/HCC); Nontraumatic amputation of foot, right (CMS/HCC)Start: 04-09-2024 End: 79-23-7312Oyujbtniz encounterSteven A Rusher DPM Work Phone: noms PODIATRYComment on above:Advice Only (orthotics)Start: 03-29-2024 End: 55-35-1121Ftdeej flowsheetSteven A Rusher DPM Work Phone: noms PODIATRYStart: 03-29-2024 End: 79-23-3430Zigbdz flowsheetSteven A Rusher DPM Work Phone: noms PODIATRYStart: 03-29-2024 End: 58-98-2812Ofsbld follow up visit related to original pxSteven A Rusher DPM Work Phone: noms PODIATRYComment on above:Diabetic polyneuropathy associated with type 2 diabetes mellitus (CMS/HCC) (Primary Dx); Nontraumatic amputation of foot, left (CMS/HCC); Nontraumatic amputation of foot, right (CMS/HCC)Start: 03-29-2024 End: 61-17-4055zbsapuapxkAYXYEX A TODDHERNot AvailableStart: 03-27-2024 End: 81-84-8179Fvckph flowsheetJordan Duncan MD Work Phone: noMS CI FM 100Start: 03-27-2024 End: 29-03-5043Nyiwrn flowsMonique Duncan MD Work Phone: NOMS CI FM 100Start: 03-27-2024 End: 52-11-4134Ftrkkv outpatient visit 25 minutesEdarsh Duncan MD Work Phone: NOMS CI FM 100Comment on above:Type 2 diabetes mellitus with diabetic polyneuropathy, without [...] to statin medication; Former smoker; Morbid obesity (CMS/HCC)Start: 03-27-2024 End: 34-72-5839klwtdvmouoIHHSWUEdgar He AvailableStart: 03-27-2024 End: 39-45-5895quxqcciirjKqnrmhr R WATERSFacility:EU ueStart: 03-27-2024 End: 62-03-3518Uibiqhr encounter procedureTopher SAAVEDRA [facility] start: 03-13-2024 End: 45-88-4404Dmbqcn flowsheetSteven A Rusher DPM Work Phone: noms PODIATRYStart: 03-13-2024 End: 05-21-2323Wsvlcj flowsheetSteven A Rusher DPM Work Phone: noms PODIATRYStart: 03-13-2024 End: 10-88-3289Ngrtohz encounter procedureSteven A Rusher DPM Work Phone: noms PODIATRYComment on above:Acquired keratoderma (Primary Dx); Diabetic polyneuropathy associated with type 2 diabetes mellitus (CMS/HCC); Nontraumatic amputation of foot, left (CMS/HCC); Nontraumatic amputation of foot, right (CMS/HCC)Start: 03-01-2024 End: 37-17-0882fjgfknvwuvQFTKWUEdgar Mar[facility] HospitalStart: 02-27-2024 End: 04-19-0559vrgqegplsxVgvkync R WATERSFacility:EU ueStart: 02-27-2024 End: 08-04-0171Dkbidsv encounter procedureTopher SAAVEDRA [facility] start: 01-31-2024 End: 99-03-0939Neojwwo encounter procedureAuprecious Solomon [facility] start: 12-05-2023 End: 04-12-9350Ymmwacm encounter procedurePaluciano SAAVEDRA [facility] start: 11-09-2023 End: 63-04-9881fobkcdonpvYKGUHA J HEMEYERMercy Connecticut Children's Medical Centertart: 11-07-2023 End: 28-30-4721Oiatfwx encounter procedurePaluciano SAAVEDRA [facility] start: 10-07-2023 End: 58-28-3268Kbwodpd encounter procedurePaluciano SAAVEDRA [facility] start: 09-09-2023 End: 79-78-9624Kmsdoma encounter procedurePaluciano SAAVEDRA [facility] start: 08-15-2023 End: 45-24-3538Ffrhhxj encounter procedurePaluciano SAAVEDRA [facility] start: 26-82-5729Ttiytg flowsheetStevictor hugo A Alexandria DPM Work Phone: NOMS PODIATRYStart: 50-81-2774Vmtsul flowsheet Brody Ibrahim DPM Work Phone: NOMS PODIATRYStart: 07-19-2023 End: 24-40-1304Kzsiklo encounter procedureSteven A Alexandria DPM Work Phone: NOMS PODIATRYComment on above:Dermatophytosis of nail (Primary Dx); Dystrophic nail; Diabetic polyneuropathy associated with type 2 diabetes mellitus (CMS/HCC); Nontraumatic amputation of foot, right (CMS/HCC); Nontraumatic amputation of foot, left (CMS/HCC); Acquired keratodermaStart: 07-18-2023 End: 99-39-9457Kogtzpj encounter procedureTopher Ordoñez [employer] [facility] [employer] start: 06-20-2023 End: 85-24-4004Mmozpkn encounter procedurePaluciano Ordoñez [employer] [facility] [employer] start: 05-09-2023 End: 84-87-7765Rwoaufa encounter procedurePaluciano Ordoñez [employer] [facility] [employer] start: 04-04-2023 End: 49-04-8669Dvnefab encounter procedureTopher Ordoñez [employer] [facility] [employer] start: 02-08-2023 End: 91-39-8059Nkvgrpy encounter procedureJORDAN DUNCANExec[facility] [employer] start: 01-03-2023 End: 04-39-1539Vcryzel encounter procedureTopher Ordoñez [employer] [facility] [employer] start: 12-03-2022 End: 60-52-3463Swsnfrn encounter procedureTopher Ordoñez [employer] [facility] Tj start: 11-05-2022 End: 98-89-8701Pzxeawy encounter procedurePaScodixbaljinder SAAVEDRA [facility] start: 11-03-2022 End: 88-93-6442Aurbidqtcm hospital visit by physicianG[facility] Room 7 ScheduleELL[facility] MED ONCComment on above:Polycythemia (Primary Dx)Start: 10-25-2022 End: 25-17-8604pbxrrlmgotPBPLTDPK CULLENFacility:V3Aogva: 10-05-2022 End: 53-98-7627tqsdcsipaqWH JORDAN DUNCAN .Facility:G4Qwquu: 10-05-2022 End: 20-58-8548Wohqzax encounter procedurePaScodixbaljinder SAAVEDRA [facility] start: 09-30-2022 End: 23-15-3433orxxoewreaIG TOPHER SAAVEDRA .Facility:V5Dacyy: 09-27-2022 End: 12-70-0193zuvrjfgksyAPTNCVSV CULLENFacility:H9Znbkx: 09-20-2022 End: 06-24-8820kklpqqkttaZPAKB D HIGHLANDERFacility:S8Mlmhm: 60-94-7392Wbxsejsvp for preprocedural cardiovascular examinationDR TOPHER SAAVEDRA .[facility]tart: 41-12-7419Fblenwijh for preprocedural laboratory examinationDR TOPHERWAYNE SAAVEDRA .[facility] HospitalStart: 55-45-3244Gaiglcvdg for preprocedural respiratory examinationDR TOPHER SAAVEDRA .[facility] Start: 09-15-2022 End: 64-73-6568vftlxksczjTH TOPHER SAAVEDRA .Facility:F7Fbohq: 09-15-2022 End: 25-43-7373Wirtfhvwx for preprocedural laboratory examinationDR TOPHER SAAVEDRA .Facility:B5Vhrbh: 09-06-2022 End: 14-61-6209Zjjdpup encounter procedurePaScodixbaljinder SAAVEDRA [facility] start: 06-18-2022 End: 52-49-4314Gfsfvio encounter procedurePaluciano Ordoñez SAAVEDRA [facility] start: 05-20-2022 End: 51-71-6651uurtqebfsoZQPFR D HIGHLANDERFacility:D7Jfywo: 05-17-2022 End: 99-27-4909Ssyxlrt encounter procedurePatricbaljinder Smita [employer] [facility] start: 04-21-2022 End: 02-03-5602lieryckrwuWNMLI D HIGHLANDERFacility:I3Hrsjk: 04-21-2022 End: 43-66-5309Ugjxugm encounter procedureMandy Schaefer [facility] start: 04-09-2022 End: 05-89-2495dazajcuvybCXKRW D HIGHLANDERFacility:K6Wttxe: 03-31-2022 End: 21-06-9480Nguynnk encounter procedureKatsha Schaefer [facility] [employer] start: 03-22-2022 End: 96-69-0633buaahhjlqnOXPKP D HIGHLANDERFacility:U8Cynpv: 03-03-2022 End: 84-70-7077Hdhqdvd encounter procedureKatsha Schaefer [facility] start: 02-01-2022 End: 97-20-0644Dayscxk encounter procedurePaluciano Smita SAAVEDRA [facility] start: 01-28-2022 End: 63-46-6576Eijjgwdhvj hospital [facility] by physicianG[facility] Lab Schedule [facility] MED ONCComment on above:Polycythemia (Primary Dx)Start: 01-18-2022 End: 35-39-6202grrurbudgjWS JORDAN DUNCAN .Facility:R4Nsgze: 01-06-2022 End: 01-93-6339hgicsimwjpNZEHP D HIGHLANDERFacility:L8Zmyhw: 12-21-2021 End: 72-45-6629Jeojxxi encounter procedurePatricbaljinder Ordoñez Hiptype [facility] start: 11-23-2021 End: 02-31-4519Lfzwdup encounter procedurePatricbaljinder Ordoñez [employer]iptype [facility] start: 10-26-2021 End: 21-07-6520Lrrnidt encounter procedurePatricbaljinder Ordoñez Hiptype Executive [facility] start: 09-28-2021 End: 13-48-3459Favjfrc encounter procedurePatricbaljinder Ordoñez Hiptype [facility] start: 08-31-2021 End: 54-73-6515Ltsfnqn encounter procedurePatricbaljinder Ordoñez Hiptype [facility] start: 10-22-2020 End: 09-26-3359Kxcmniyqjo hospital [facility] 9 ScheduleELL[facility] MED ONCComment on above:Polycythemia (Primary Dx)Start: 07-27-2019 End: 10-91-9881Bfrvtkczuy hospital visit by physician[facility] 9 ScheduleELL[facility] MED ONCComment on above:Polycythemia (Primary Dx)Start: 03-13-2019 End: 52-63-8402Yhxfgocgsx hospital visit by physicianG[facility] 9 ScheduleELL[facility] MED ONCComment on above:Polycythemia (Primary Dx)Start: 01-12-2019 End: 06-54-0482Yitvnrloir hospital visit by physicianG[facility] 9 ScheduleE[facility] MED ONCStart: 02-16-2018 End: 91-78-8951Xxkahte encounterDEFAULT PHYSICIANFacility:[facility] Procedures DateProcedureProcedure DetailPerforming ClinicianStart: 16-00-2806DDQ CBC WITH AUTO DIFFGeneric External Data ProviderStart: 52-21-3513XB FOOT RT MIN 3VGeneric External Data ProviderStart: 73-87-1896DU CHEST 2VGeneric External Data ProviderStart: 99-45-2022TYW CBC WITH AUTO DIFFGeneric External Data Provider Start: 41-22-9201OMA LIPID PROFILE (FASTING)Generic External Data ProviderStart: 63-31-6625ENKP LIVER PANELGeneric External Data ProviderStart: 09-18-2024 Creatinine other sourceEdarsh Duncan MD Work Phone: Start: 36-34-4590FT ECHO DOPPLER COMPLETEGeneric External Data ProviderStart: 44-59-1873UBO CBC WITH AUTO DIFFGeneric External Data ProviderStart: 12-48-1048GRI TESTOSTERONEGeneric External Data Provider Start: 23-96-3834NI FAITH PERF SPECT REST STRGeneric External Data ProviderStart: 78-25-5403QZA LIPID PROFILE (FASTING)Generic External Data ProviderStart: 15-77-0525OfssmpbfgixqLiootpa WATERS Start: 29-01-0979FogjivmstzcIbryfg [place] DPM Work Phone: Start: 32-89-6684ehjv surgeryTryLife Start: 57-04-0925Oklcril of placement of stent for coronary artery diseaseS/P JORY - LCX & RCA (3280-4479-Fl. kabour)Mthz Schedule BACK SURGERYPaLumenpulse Placement of stentPaLumenpulse RECTAL CANCER SURGERYTopher SAAVEDRA RIGHT VEIN REMOVED FROM LEGTopher SAAVEDRA Plan of Treatment DateCare ActivityDetailAuthorStart: 48-09-0950Amniszhbb for malignant neoplasm of colonNOAK HealthcareStart: 27-40-1797Somjbtdo screeningDiabetes: Retinopathy ScreeningNOAK HealthcareStart: 52-63-1382Aedhk screening for proteinDiabetes: Urine Protein ScreeningNOAK HealthcareStart: 09-11-2025 End: 52-10-3675Ytbzibb encounter /08/2026 9:00 AM EDT Office Visit NOM [address] 112 [facility] [address] [place] [address] Jordan Duncan MD [address] [address] [facility]Rox[facility] HospitalJose[address] Streettart: 08-17-2025 End: 28-64-8089Tddervofydxoz metabolic 2000 panel - Serum or PlasmaComprehensive metabolic panel Lab Routine Type 2 diabetes mellitus with diabetic polyneuropathy, without long-term current use of insulin (HCC) Type 2 diabetes mellitus with diabetic microalbuminuria, without long-term current use of insulin (HCC) Essential hypertension Expected: 08/17/2025 (Approximate), Expires: 11/15/2025[facility] [employer] Work Phone: Comment on above:Expected: 08/17/2025 (Approximate), Expires: 11/15/2025Start: 08-17-2025 End: 69-33-6519Gifvwlfxgm A1c/Hemoglobin.total in BloodHemoglobin A1c Lab Routine Type 2 diabetes mellitus with diabetic polyneuropathy, without long-term current use of insulin (HCC) Type 2 diabetes mellitus with diabetic microalbuminuria, without long-term current use of insulin (HCC) Expected: 08/17/2025 (Approximate), Expires: 11/15/2025[facility] HealthcareComment on above: Expected: 08/17/2025 (Approximate), Expires: 11/15/2025Start: 08-17-2025 End: 63-61-3642Rmbvd 1996 panel - Serum or PlasmaLipid panel Lab Routine Mixed hyperlipidemia Expected: 08/17/2025 (Approximate), Expires: 11/15/2025NOAK HealthcareComment on above:Expected: 08/17/2025 (Approximate), Expires: 11/15/2025Start: 02-19-2026Medicare Annual Wellness (AWV)Medicare Annual Wellness (AWV)[facility] HealthcareStart: 48-60-3013Weasvrpmyv A1c measurement Diabetes: Hemoglobin Z9PMQRE HealthcareStart: 04-09-2025 End: 56-39-9701Xmxltji encounter nhvvstqex09/04/2025 8:30 AM EST Office Visit [facility] [address] [place] [phone] Brody Ibrahim, DPM [address] [place] [address] [facility] PodiatryStart: 03-25-2025 End: 71-19-4053Vhqxoll encounter shjlutwdq06/20/2025 4:00 PM EDT Office Visit [facility] [address] [place] [address] Brody Ibrahim, DPArin [address] [place] [address] [facility]rivedAL[facility] Rosendo PodiatryComment on above:ArrivedStart: 02-28-2025 DTaP/Tdap/Td Vaccines (2 - Td or Tdap)DTaP/Tdap/Td Vaccines (2 - Td or Tdap)[facility] HealthcareStart: 40-47-5561IQF test (Diabetes, CKD 3-4, OR last GFR 15-59)GFR test (Diabetes, CKD 3-4, OR last GFR 15-59)[facility] CenterStart: 76-11-1870KKGPT-19 Vaccine ( season)COVID-19 Vaccine ( season)[facility] HealthcareStart: 72-94-3373Rorwggevj vaccinationInfluenza Vaccine (#1)[facility] HealthcareStart: 59-88-2849Hmpyisrptn A1c measurementDiabetes: Hemoglobin M4KXBNA HealthcareStart: 10-26-2024 End: 15-30-7468Gpzcwzh encounter hddjoghvz70/23/2025 1:00 PM EDT Appointment [facility] [address] [place] [address] phlebotomyE[facility] MED ONCComment on above:phlebotomyStart: 10-17-2024 End: 27-19-1041Xcjjprh encounter qzxtwokrt09/14/2025 1:00 PM EDT Office Visit [facility] Part of [address] [id number] Newton Stevenson MD [address] [place] [address] F/U polycythemia, anal cancerOHIOHE[facility] Part of [facility] CenterComment on above:F/U polycythemia, anal cancerStart: 45-38-7998Tmzua screening for protein Diabetes: Urine Protein ScreeningNOAK HealthcareStart: 09-18-2024 End: 67-73-7137Mqklgsc encounter procedureNOMS CI FM 100Comment on above: Essential hypertension (CMS/HCC); Microalbuminuria; Mixed hyperlipidemia (CMS/HCC); Type 2 diabetes mellitus with diabetic microalbuminuria, without long-term current use of insulin (CMS/HCC); Type 2 diabetes mellitus with diabetic polyneuropathy, without long-term current use of insulin (CMS/HCC)Start: 08-25-2024 End: 36-12-9588Bnklehdujwrta metabolic 2000 panel - Serum or PlasmaComprehensive metabolic panel Lab Routine Type 2 diabetes mellitus with diabetic polyneuropathy, without long-term current use of insulin (CMS/HCC) Essential hypertension (CMS/HCC) Expected: 08/25/2024, Expires: 03/27/2025[facility] Work Phone: Comment on above:Expected: 08/25/2024, Expires: 03/27/2025Start: 08-25-2024 End: 00-05-3492Wfxugjqxla A1c/Hemoglobin.total in BloodHemoglobin A1c Lab Routine Type 2 diabetes mellitus with diabetic polyneuropathy, without long-term current use of insulin ([facility]) Expected: 08/25/2024, Expires: 03/27/2025NOAK HealthcareComment on above:Expected: 08/25/2024, Expires: 03/27/2025Start: 08-25-2024 End: 33-95-4795Gpauh 1996 panel - Serum or PlasmaLipid panel Lab Routine Mixed hyperlipidemia ([facility]) Expected: 08/25/2024, Expires: 03/27/2025NOAK HealthcareComment on above:Expected: 08/25/2024, Expires: 03/27/2025Start: 07-25-2024 End: 39-10-8133Skjeaal encounter hmeufjjnc47/19/2025 11:00 AM EST Office Visit [facility] 100 112 [facility] [address] [place] [address] Jordan Duncan MD 112 [facility] [address] [place] [address] Encounter for Medicare annual wellness exam; Advance directive in chart; Encounter for screening for other disorder; Screening for alcohol problem; Morbid (severe) obesity due to excess calories ([facility]); Body mass index (BMI) 40.0-44.9, adult ([facility] CI FM 100Comment on above:Encounter for Medicare annual wellness exam; Advance directive in chart; Encounter for screening for other disorder; Screening for alcohol problem; Morbid (severe) obesity due to excess calories ([facility]); Body mass index (BMI) 40.0-44.9, adult ([facility])Start: 82-38-6078Wjujvtjuqb A1c measurementDiabetes: Hemoglobin C1ZEJJP HealthcareStart: 12-12-2024Medicare Annual Wellness (AWV)Medicare Annual Wellness (AWV)[facility] HealthcareStart: 05-15-2024 End: 93-38-6541Mfgqbuc encounter skgojlmwt93/10/2024 10:15 AM EST Office Visit [facility] [address] [place] [phone] Brody Ibrahim DPM [address] [place] [address] NOMS PODIATRYStart: 04-23-2024 End: 49-63-6821Lewoknb encounter tasyzmwve97/18/2024 11:00 AM EST Office Visit [facility] [address] [place] [phone] Brody Ibrahim DPM [address] [place] [address] NOMS PODIATRYStart: 04-09-2024 End: 76-57-8153Sglknen encounter zvwuwsisp19/04/2024 9:30 AM EST Office Visit [facility] [address] [address] Jordan Duncan MD [address] [place] [address] (Fax)[facility] CI FM 100Start: 03-29-2024 End: 32-46-9704Kyxozbn encounter etssdthoq34/24/2024 1:00 PM EDT Office Visit [facility] [address] [place] [phone] Brody Ibrahim DPM [address] [place] [address] ArrivedNOSAINT ALEXIUS [facility] PODIATRYComment on above:ArrivedStart: 03-27-2024 End: 77-55-9479Zpvwynq encounter zfuowqjgr19/22/2024 2:00 PM EDT Office Visit [facility] [address] [facility] 100 [place] [address] Jordan Duncan MD [address] [place] [address] (Fax) Type 2 diabetes mellitus with diabetic polyneuropathy, without long-term current use of insulin (CMS/HCC); Essential hypertension (CMS/HCC); Microalbuminuria; Diabetic foot (CMS/HCC); Mixed hyperlipidemia (CMS/HCC); Adverse reaction to statin medication; Former smoker; Morbid obesity (CMS/HCC)[facility] 100Comment on above:Type 2 diabetes mellitus with diabetic polyneuropathy, without long-term current use of insulin (CMS/HCC); Essential hypertension (CMS/HCC); Microalbuminuria; Diabetic foot (CMS/HCC); Mixed hyperlipidemia (CMS/HCC); Adverse reaction to statin medication; Former smoker; Morbid obesity (CMS/HCC)Start: 03-13-2024 End: 30-61-7088Rsneilb encounter /08/2024 9:45 AM EDT Office Visit [facility] [address] [place] [address] Brody Ibrahim DPM [address] [place] [address] ArrivedEVERGREENHEALTH MONROE PODIATRYComment on above:ArrivedStart: 37-96-5742SSEKK-19 Vaccine ( season)COVID-19 Vaccine ( season)[facility] CenterStart: 70-85-6609Rlroooggq vaccinationInfluenza Vaccine (#1)[facility] HealthcareStart: 14-78-6865Gqpvjovrtt A1c measurementDiabetes: Hemoglobin A1C [facility] HealthcareStart: 03-50-1565Mifmqugh screeningDiabetes: Retinopathy ScreeningALTA VIEW HOSPITAL HealthcareStart: 86-46-9585HRO test (Diabetes, CKD 3-4, OR last GFR 15-59)GFR test (Diabetes, CKD 3-4, OR last GFR 15-59)[facility]ODStart: 10-26-2023 End: 41-43-8004Hastfsy encounter iqagjfblk46/22/2024 Office Visit Oncology Newton Suarez MD [address] [place] [address] [facility]art: 10-12-2023 End: 43-77-6779Rpkqnca encounter whcecanxa08/08/2024 9:30 AM EDT Office Visit [facility] [address] [facility] [place] [address] Jordan Duncan MD [address] [facility] [place] [address] (Fax)[facility] BNS FMStart: 09-27-2023 End: 73-23-6404Kptqfvl encounter ygfdplybs72/23/2024 11:00 AM EDT Procedure Visit [facility] [address] [place] [address] Brody Ibrahim DPM [address] [place], [place] [address] NOMS PODIATRYStart: 34-88-1443Ltmrunhzso A1c measurement Diabetes: Hemoglobin R6GPJIESelect Specialty HospitalStart: 58-11-0781Hxuukb Wellness Visit (Medicare)Annual Wellness Visit (Medicare)[facility]: 10-20-2022 End: 04-80-8421Ecwsodn encounter nxtvypiwc99/17/2023 Office Visit Oncology Newton Suarez MD [address] [place], [place] [address] [facility] Part of [facility] Centertart: 87-63-9757Uchcwzaesl A1c jsrhimzhsvxR2O test (Diabetic or Prediabetic)[facility]: 37-25-9747Pqyvrgjnp vaccinationFlu vaccine (#1)[facility]ODStart: 26-70-7405Jowgs screening for proteinBON [facility]: 10-21-2021 End: 99-35-8646Gbffrxj encounter wpkbkztsa46/18/2022 Office Visit Oncology Newton Suarez MD [address] [place], [place] [address] [phone] [facility]BY [facility] Part of [facility]art: 10-16-2021 COVID-19 Vaccine (4 - Booster for Pfizer series)COVID-19 Vaccine (4 - Booster for Pfizer series)[facility]: 62-17-1992Qshhx panelLipidsBON [facility]: 10-24-2019 End: 88-99-5053Ivmtjr VisitTiffin [facility]Start: 07-31-2019 End: 11-97-2692Ggzilmsulor03/25/2020 Appointment [facility] Start: 04-30-2019 End: 05-77-8944Sorpoqzddyw05/25/2019 Appointment [facility] Start: 99-15-9676Lpcijfyve vaccinationFlu vaccine (#1)[facility]art: 95-54-5617Gydxvo Wellness Visit (AWV)Annual Wellness Visit (AWV)[facility]: 66-03-7755Heivlnyttj measurementCreatinine DomobHolmes County [facility] [employer] Phone: start: 43-25-0066Eraazagyeu monitoringCreatinine monitoringOhio State Harding Hospitalart: 67-24-6966Gjktjepmd monitoringPotassium monitoringOhio State Harding Hospitalart: 83-11-4954E1L test (Diabetic or Prediabetic)A1C test (Diabetic or Prediabetic)[facility]: 61-03-7177Vlltdhtgpq A1c hbzxpsadxytD6C test (Diabetic or Prediabetic)[facility]: 37-12-7365Ddvvdwese aortic aneurysm screeningAAA screenSentara Leigh Hospital: 53-00-0297Rhqxmugrzllq 65+ years Vaccine (1 of 2 - PCV13)Pneumococcal 65+ years Vaccine (1 of 2 - PCV13)[facility]: 47-82-4785Zinybkma Vaccine (2 of 3)Shingles Vaccine (2 of 3)[facility]: 06-62-9420Lzhsrg Wellness Visit (AWV)Annual Wellness Visit (AWV)[facility]: 43-10-0347Pvozhdndz B Vaccines (1 of 3 - Risk 3- dose series)Hepatitis B Vaccines (1 of 3 - Risk 3-dose series)[facility] Start: 07-03-6956Hrhwjqwcfgy Syncytial Virus (RSV) or age 60 yrs+ (1 - Risk 60-74 years 1-dose series)Respiratory Syncytial Virus (RSV) or age 60 yrs+ (1 - Risk 60-74 years 1-dose series)[facility]: 63-05-0434Tegyv cancer screen colonoscopyColon cancer screen colonoscopyParkview Health [facility] Hospital: 93-13-8866Mrjzdxenj for malignant neoplasm of colonColon cancer screen colonoscopyUniversity Hospitals [facility] Work Phone: start: 84-22-6534Cjctmdbj Vaccine (1 of 2)Shingles Vaccine (1 of 2)[facility]: 69-56-0662Opkbzzmur for malignant neoplasm of colonBON [facility]: 17-17-4575WSvE/Tdap/Td vaccine (1 - Tdap)DTaP/Tdap/Td vaccine (1 - Tdap)[facility]: 12-11-4480Msweocqyh A Vaccines (1 of 2 - Risk 2-dose series)Hepatitis A Vaccines (1 of 2 - Risk 2-dose series)[facility]: 52-85-1164Zmjgvqznz B vaccine (1 of 3 - Risk 3-dose series)Hepatitis B vaccine (1 of 3 - Risk 3-dose series)[facility]: 85-00-1812Lldsfvce microalbuminuria test Diabetic microalbuminuria [facility]: 92-30-1599Fnqeufao retinal examDiabetic retinal examSentara [facility] Hospital: 02-10-1970 Glaucoma screeningDiabetic retinal examSentara [facility] Hospital: 02-10-1970 Hepatitis C screeningHepatitis C screenSentara [facility] Hospital: 02-10-1970 Urine screening for proteinDiabetic Alb to Cr ratio (uACR) testSentara Leigh Hospital: 44-92-5731Ikcrkrzgym ScreenDepression ScreenSentara Leigh Hospital: 77-59-9047FWnO/Tdap/Td vaccine (1 - Tdap)DTaP/Tdap/Td vaccine (1 - Tdap)[facility]: 02-10-1960[object Object]Diabetic foot examParkview Health [facility] Hospital: 61-99-5457Gdylcopq foot examinationDiabetic foot examBON [facility]ODStart: 81-23-9435Lnncxqgf retinal examDiabetic retinal exam [facility] KYStart: 40-55-4877Nwawj panelBON [facility] Centerart: 45-38-9069Rdvkl screenLipid [facility] Centerart: 78-53-9280Vdntgf Wellness Visit (AWV)Annual Wellness Visit (AWV)[facility]ODStart: 02-62-2309Ytndzlgxf C screenHepatitis C [place] S&TBarney Children's Medical Center, [facility] Centerart: 96-53-4500Wtesrgdye C screeningHepatitis C [place] S&THolmes [facility] [employer] Work Phone: start: 31-67-5817Suomcwebz for malignant neoplasm of colonAL[facility] VIEW [facility] Healthcare End: 90-62-3347Xcquaieibi therapeuticPhlebotomy therapeutic Procedures Routine One Time for 1 Occurrences starting 07/05/2024 until 07/05/2024on [facility] Work Phone: Comment on above:One Time for 1 Occurrences starting 07/05/2024 until 07/05/2024 Immunizations Immunization DateImmunizationNotesCare ZnmrdiecRcjpxogn27-69-2301MDK vaccine preF3, recombinantPatrick Hiptype [facility]08-28-2025RSV, recombinant, protein subunit RSVpreF, adjuvant reconstitu, 120mcg/0.5mL, PF (Arexvy)Jordan Duncan MD Work Phone: [facility] HospitalEbqxzrbcxq49-34-6113pqfdary toxoid, reduced diphtheria toxoid, and acellular pertussis vaccine, adsorbedPatrick Hiptype [facility]08-28-2025zoster vaccine recombinantPatrick Hiptype [facility]10-23-2024influenza, seasonal, injectableSteven Rusher DPM Work Phone: [phone] HospitalOlalhlvxrd49-28-8160Zxiljbgj trivalent influenza vaccine, adjuvanted, preservative freeSteven Rusher DPM Work Phone: [phone] [place], [place] [address]Zogztnklqj34-34-5019qcbxzmsol virus vaccine, unspecified formulationGeneric ProviderExecutive [facility]09-25-2023influenza virus vaccine, unspecified formulationAkLumenpulse [facility]09-25-2023Influenza, Seasonal, Quadrivalent, AdjuvantedSteven Rusher DPM Work Phone: [phone] [place], [place] [address]Hmjijxpezp63-91-1974oqtmwmfpn virus vaccine, unspecified formulationAkLumenpulse [facility]11-11-2022Influenza, Seasonal, Quadrivalent, AdjuvantedSteven Rusher DPM Work Phone: [phone] [place], [place] [address]Ulxhssqoig01-23-0213Sjnzpld Bivalent Booster VaccinationSteven Rusher DPM Work Phone: [phone] [address]Nssyqtrfth04-65-2111Jdzrfdx SARS-CoV-2 50mcg/0.5mL BoosterSteven Rusher DPM Work Phone: [phone] HospitalOglgwgnqjw52-83-2825Yfuelp Bivalent Booster 12 Years And OlderSteven Rusher DPM Work Phone: [phone] [place], [place] [address]Gjjeldwhxp93-22-8157LZDY-OuW-2 (COVID-19) mRNAMUL.ORD!i89956Nmwfwdm WATERS [facility]01-13-2022SARS-CoV-2 (COVID-19) mRNA BNT-162b2 vaxTryLife [facility]12-01-2021influenza virus vaccine, unspecified formulationAkLumenpulse [facility]12-01-2021Influenza, Seasonal, Quadrivalent, AdjuvantedSteven Rusher DPM Work Phone: [facility] HospitalFiuxjxqmis67-77-2906CLRW-WbC-7 (COVID-19) Ad26 vaccine, recombinantPatrick Hiptype [facility] 03257075-95-2823VMKL-UzF-8 (COVID-19) mRNA BNT-162b2 vax Topher Hiptype [facility]03-25-2021SARS-CoV-2, UnspecifiedSteven Rusher DPM Work Phone: [facility] HospitalMmkubseuma67-29-0747Usgajd Purple Cap SARS-CoV-2 VaccinationSteven Rusher DPM Work Phone: [facility] HospitalDslcmvqvbj55-71-3224XYHZ-KvO-9 (COVID-19) mRNA BNT-162b2 vaxPaLumenpulse [facility] HospitalComment on above:Result Comment: 2022-11-05: CUI2087-99-9920IXFL-BpA-9, UnspecifiedSteven Rusher DPM Work Phone: [facility] HospitalCqkcizrqon91-03-3476Ddixej Purple Cap SARS-CoV-2 VaccinationSteven Rusher DPM Work Phone: [facility] HospitalHcuqnabtby52-33-5580XZIT-ArD-7 (COVID-19) Ad26 vaccine, recombinantPatrick Hiptype [facility] 10220451-69-9285kfsvxszlq virus vaccine, unspecified formulationPatrick Hiptype [facility]10-17-2020Influenza, Seasonal, Quadrivalent, AdjuvantedSteven Rusher DPM Work Phone: [facility] HospitalMkxvnmjsgr21-73-5367woawzkhrefwd conjugate vaccine, 13 valentTryLife [facility] [phone]xc virus vaccine, unspecified formulationTryLife [facility]09-30-2019influenza, high dose seasonal, preservative-freeSteven Rusher DPM Work Phone: [phone] HospitalOplvpsglho60-88-3465qqbvrpywavjf polysaccharide vaccine, 23 valentPatrick Hiptype [facility]09-29-2019Influenza, High-dose Seasonal, Quadrivalent, Preservative Free Brody Rusher DPM Work Phone: [phone] [place], [place] [address]Zhuxsdbcox21-97-0514gvbhfxzsdfqm polysaccharide vaccine, 23 valentSteven Rusher DPM Work Phone: [phone] HospitalUdkujwfcdl43-47-2243ypukaflth virus vaccine, unspecified formulationTryLife [facility]09-28-2018influenza, high dose seasonal, preservative-freeSteven Rusher DPM Work Phone: [phone] HospitalDmzhukvpky18-44-6231jnupmvdrwlhx conjugate vaccine, 13 valentPaLumenpulse [facility]09-28-2018pneumococcal polysaccharide vaccine, 23 valentSteven Rusher DPM Work Phone: [facility] HospitalQdpvqlhxqn94-54-4145rkscprskmbaz conjugate vaccine, 13 valentSteven Rusher DPM Work Phone: [phone] [place], [place] [address]Sglhgyohws81-48-3996guqjntsmc virus vaccine, unspecified formulationPatrick SAAVEDRA [facility]11-01-2017influenza, injectable, quadrivalent, preservative freeSteven Rusher DPM Work Phone: [facility] HospitalSbdfypfvzy60-14-3420empygthsszua polysaccharide vaccine, 23 valentPatrick SAAVEDRA [facility]07-01-2017zoster vaccine, livePatrick SAAVEDRA [facility]10-01-2016Influenza Vaccine, unspecified formulationUnity [facility] Center10-01-2016influenza virus vaccine, H5N1, A/[place] (national stockpile)Brody Ibrahim DPM Work Phone: [facility] HospitalMdvbajsghm83-00-6251qxmygsxak virus vaccine, unspecified formulationSteven Rusher DPM Work Phone: [facility] HospitalImdafaaety30-30-4697Acucficuj, High-dose Seasonal, Quadrivalent, Preservative FreeSteven Rusher DPM Work Phone: [facility] HospitalYznokfagwl40-89-2419iwbcdxgzq, unspecified formulationPatrick SAAVEDRA [facility]08-19-2016influenza virus vaccine, unspecified formulationPatrick SAAVEDRA [facility]08-19-2016influenza, injectable, quadrivalent, preservative freeSteven Rusher DPM Work Phone: [facility] HospitalSrchyesgqx25-14-8335ufrkatofpxza polysaccharide vaccine, 23 valentPatrick SAAVEDRA [facility] 10-271856-74-6653ieaanrqqh virus vaccine, unspecified formulationPatrick SAAVEDRA [facility]10-18-2014influenza, seasonal, injectableSteven Rusher DPM Work Phone: [facility] HospitalUjkqqvirxr46-26-3453yuxeihsks virus vaccine, unspecified formulationPatrick SAAVEDRA [facility]11-01-2013influenza, seasonal, injectableSteven Rusher DPM Work Phone: [facility] HospitalNcwzzzuxck03-45-8088xqutvb vaccine, livePatrick SAAVEDRA [facility]10-31-2013zoster vaccine, liveSteven Rusher DPM Work Phone: [facility] HospitalYcrzdislst28-69-5946phasn mlwyzqwxl-Q7B2-20, preservative-free, injectableSteven Rusher DPM Work Phone: [facility] Payers DatePayer CategoryPayerPolicy [id number] Health [id number] [id number] 2017Medicare xxxxxxxxxxx [id number] 1960Medicare [id number] 1.2.840.789006.1.13.239.2.7.3.294868.20167-37-8743Kjgpdvx Health [id number] 1.2.840.703139.1.13.239.2.7.3.190591.23670-45-5836Dsixgfm [id number] 2.16.840.1.697099.3.57[id number] 2.16.840.1.688453.3.57[id number] 2.16.840.1.639403.3.57[id number] 2.16.840.1.696014.3.57[id number] 2.16.840.1.127900.3.57[id number] 2.16.840.1.159919.3.57[id number] 2.16840.1.581650.3.57[id number] 2.16840.1.450784.3.57[id number] 2.16.840.1.718668.3.57[id number] 2.16.840.1.656635.3.57[id number] 2.16840.1.215117.3.579.2.80565-08-6343Cfvfunr2383410 2.16.840.1.991910.3.57[id number] 2.16.840.1.777197.3.57[id number] 2.16.840.1.680005.3.57[id number] 2.16840.1.437766.3.579.[id number] 2.16840.1.580356.3.57[id number] 2.840.1.268517.3.579.[id number] 2.0.1.469199.3.57[id number] 2..1.635983.3.57[id number] 2.0.1.298699.3.57[id number] 2..1.363229.3.57[id number] 2.0.1.492643.3.57[id number] 2..1.284626.3.579.2.623347-99-5022Mkxrxkw30792574 2..1.257038.3.579.2.810292-69-9395Hflhaxh1634644 2..1.089149.3.579.2.321994-85-3701Btukbgj0689588 2..1.059605.3.579.2.[id number] 2.0.1.314683.3.57[id number] 2.0.1.906826.3.579.[id number] 2..1.821050.3.57[id number] 2.16.840.1.689536.3.[id number] 2.16.840.1.517646.3.579.2.531 Social History DateTypeDetailFacilityStart: 10-18-2018 End: 21-72-9693Xuvcrpt smoking status [place] Start: 08-31-1979 End: 14-98-7728Jfrdkzy of tobacco useCurrent smokerOhio State Harding Hospitalart: 10-18-2018 End: 43-33-2217Coltnurrkp smoked current (pack per day) - ReportedNOAK HealthcareStart: 10-18-2018 End: 55-90-2110Jedoxqc intakeNoOhio State Harding Hospitalart: 01-23-2014 End: 14-13-5535Gzhdckh Commentquit [facility] in 1999[facility]: 59-15-5129Qvi Assigned At BirthNot on [facility]: 10-18-2018 End: 34-12-9643Mlqefwi intakeCurrent non-drinker of alcohol (finding)[facility]: 10-22-2020 End: 31-70-1778Sflzrsu use and exposureNever usedClermont County Hospitalart: 01-18-2022 End: 82-58-7880Camjqkhu to SARS-CoV-2 (event)Not sureClermont County Hospitalart: 08-31-1979 End: 61-74-6873Ckcztjp of tobacco useCigarette SmokerBON [facility] Work Phone: start: 05-17-2023 End: 19-77-4376Inenmoa intakeCurrent drinker of alcohol (finding)[facility] How often to you have a drink containing alcohol?2-4 times a monthNOMS HealthcareHow many standard drinks containing alcohol do you have on a typical day?1 or 2NOMS HealthcareHow often do you have 6 or more drinks on 1 occasion? NeverNOMS HealthcareStart: 50-01-0835Cxoggdnbp30UGJF HealthcareStart: 04-19-2023 Tobacco CommentLast smoked : > 10 yearsNOAK HealthcareStart: 87-81-8152Bvsshqw Comment1-2 drinks 2-4 x a month in the past year, Caffeine intake: 1-2 cups per day coffeeNOAK HealthcareStart: 12-96-9955Exaawg identityIdentifies as male gender (finding)[facility] smoking status NHISUnknown if ever smoked [facility] Work Phone: Start: 00-44-4492DqwFtpb (finding)[facility]tart: 14-70-5925Ref Assigned At [facility] Hospitaltart: 13-64-0992Qfjhpdm smoking statusNeverExecutive Urology of [facility] Hospitalexual OrientationExec[facility] Functional Status GbtgWbjfvyqcnxIewqdlCbxktlzr77-04-5127Fftvmut Health Questionnaire 2 item (PHQ- 2) [Reported][facility] HospitalLardozqwpj41-57-3222Bzumkst Health Questionnaire 2 item (PHQ- 2) [Reported][facility] HospitalNrmiovmdan71-70-2250Qergkkp Health Questionnaire 2 item (PHQ- 2) [Reported][facility] HospitalMdtbcauwoh84-59-7101Yoaolcsman StatusN/AExec[facility]07-01-2024Functional StatusN/A[facility]01-15-2024Functional StatusN/A [facility]06-02-2023Functional StatusN/A[facility]01-13-2023 Functional StatusN/A[facility] 79-26-4900Esehuacius StatusN/A[facility]08-29-2022Functional StatusN/AExec[facility] of [facility] Clinical Notes 10-22-2020 to 04-09-2025 Note Date & LbsyVbtqHpytstap10-93-6377 History of Present illness Narrative* Brody Ibrahim, KATLIN - 04/09/2025 8:30 AM EST Images from [...] 5th digit right foot (December 2024; Dr. Hargrove). Patient is well satisfied with previous therapeutic [...] 50 MCG (1999 UT) tablet, Take by mouth, Disp: , [...] SURGICAL HISTORY 09/30/2022 Dorsal Slit, Saavedra, [facility] TOE AMPUTATION Right 01/01/2025 right delayed primary [...] current Dr. Gruber therapeutic footwear with custom orthoses; notably deteriorated. [...] Measurements obtained in the weight-bearing position, utilizing Moondo device. Foam impressions obtained simulated weight-bearing. Patient [...] understanding. Brody Ibrahim DPM documented in this encounterSelect Specialty HospitalGmhjukajwy40-91-2947 History of Present illness Narrative* Brody Ibrahim DPM - 03/25/2025 4:00 PM EDT Images from the original note were not included. Subjective Patient ID: Juan Miguel Jennings is a 75 y.o. male who presents for DM Foot Care (Established patient presents today for diabetic foot check. And possibly starting shoe process. Patient have toe amputated on 01/01/25. Patient reports neuropathy has been getting worse, with numbness, tingling. Patient interested in doing diabetic shoe process. PCP: Dr. Duncan LV 03/19/25, A1C: 6.4, BS: 130, ). HPI Patient last in clinic in May of 2024. Returns today for assessment of the high-risk diabetic foot condition; and to consider proceeding with new therapeutic footwear and custom molded accommodative orthoses. 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 Hargrove). Patient is well satisfied with previous therapeutic [...] tablet, Take by mouth, Disp: , Rfl: diclofenac (Voltaren) 75 MG EC tablet, Take [...] and 1drop before bedtime., Disp: , Rfl: cyclobenzaprine (Flexeril) 10 MG tablet, Take 1 tablet (10 mg) by mouth 3 (three) times a day as needed for muscle spasms, Disp: 270 tablet, Rfl: 0 Allergies Clindamycin, Ezetimibe, Glipizide, Metformin, Pravastatin, and [...] SURGICAL HISTORY 09/30/2022 Dorsal Slit, Saavedra, TB[facility] TOE AMPUTATION Right 01/01/2025 right delayed primary [...] bilateral (Q7). Stable hyperkeratotic lesions bilateral forefoot. Plan: Diabetic assessment and education relative to the high-risk foot. No specific intervention is required today. Pre-determination therapeutic footwear and custom molded accommodative orthoses. Follow up: Accordingly for measurements. Indications for therapeutic footwear and multi-laminate, multi-density [...] ADLs and physical activity; reducing risk profile. Procedure: This note was created with the assistance of a speech recognition program. While intending to generate a timely document that accurately reflects the content of the visit, no guarantee can be provided that every grammatical or spelling mistake has been or will be identified or corrected. Thank you for your understanding. Brody Ibrahim DPM documented in this [facility]10-20-2025 Instructions* Patient Instructions* Brody Ibrahim DPM - 03/25/2025 4:00 PM EDT As noted documented in this [facility]10-14-2025 History of Present illness Narrative* Jordan Duncan MD - 03/19/2025 9:00 AM EDT Images from the original note were not included. Patient ID: Juan Miguel Jennings is a 75 y.o. male who presents for: Hypertension Patient [...] exposure. Use of agents associated with hypertension: none. History of target organ damage: angina/ prior myocardial infarction. Hyperlipidemia Pt who presents for follow-up of dyslipidemia. A repeat fasting lipid profile was not done. The patient does not use medications that may worsen dyslipidemias (corticosteroids, progestins, anabolic steroids, diuretics, beta-blockers, amiodarone, cyclosporine, olanzapine). Exercise: daily. Diabetes Mellitus Patient presents for follow up of diabetes. Current symptoms include: paresthesia of the feet. Symptoms have stabilized. Patient denies increased appetite, polydipsia, polyuria, and visual disturbances. Evaluation to date has included: hemoglobin A1C. Home sugars: BGs consistently in an acceptable range. GERD Paitent complains of heartburn. This has been associated with no other symptoms. He/She denies difficulty swallowing, dysphagia, and heartburn. Symptoms have been present for several years. He/She denies dysphagia. He/She has not lost weight. He/She denies melena, hematochezia, hematemesis, and coffee ground emesis. Review of Systems Constitutional: Negative for activity change and fatigue. Respiratory: Negative for cough, shortness of breath and wheezing. Cardiovascular: Negative for chest pain, palpitations and leg swelling. Neurological: Negative for light-headedness and headaches. Objective The patient is pleasant and in no acute distress The patient has good eye contact and clear speech 09/18/2024 9:24 AM 07/25/2024 10:01 AM 05/15/2024 10:21 AM 04/23/2024 10:41 AM Vitals BMI 40.1 kg/m2 39.64 kg/m2 40.45 kg/m2 40.45 kg/m2 BSA (m2) 2.94 m2 2.93 m2 2.96 m2 2.96 m2 Systolic 124 120 Diastolic 70 74 Heart Rate 63 58 SpO2 98 % 98 % Height (in) 6' 6 6' 6 6' 6 6' 6 Weight (lb) 347 343 350 350 Visit Report Report Report Report Report Component Ref Range & Units 6 d ago (03/13/25) 6 mo ago (09/12/24) 12 mo ago (03/21/24) 1 yr ago (10/05/23) 1 yr ago (04/13/23) 2 yr ago (10/21/22) 2 yr ago (10/21/22) Hemoglobin A1C <5.7 % 6.4 High 6.3 High R, CM 6.4 High R, CM 6.3 High R, CM 6.0 High R, CM 5.5 R, CM 5.5 R Allergies Allergen Reactions Clindamycin Diarrhea Other reaction(s): nausea diarrhea Ezetimibe Unknown Other Reaction(s): abdominal pain Glipizide Diarrhea and Unknown Other Reaction(s): diarrhea Metformin Diarrhea and Unknown Other Reaction(s): diarrhea Pravastatin Unknown Other Reaction(s): Other Other reaction(s): abdominal pain Rosuvastatin Unknown Other Reaction(s): abdominal pain Other reaction(s): abdominal pain Current Outpatient Medications on File Prior to Visit Medication Sig Dispense Refill amLODIPine (Norvasc) 5 MG tablet Take 5 mg by mouth Daily (Patient not taking: Reported on 09/18/2024) aspirin 81 MG EC tablet Take 1 tablet (81 mg) by mouth in the morning. cholecalciferol (Vitamin D-3) 50 MCG (2000 UT) tablet Take by mouth cyclobenzaprine (Flexeril) 10 MG tablet Take 1 tablet (10 mg) by mouth 3 (three) times a day as needed for muscle spasms 270 tablet 0 diclofenac (Voltaren) 75 MG EC tablet Take 1 tablet (75 mg) by mouth 2 (two) times a day as needed (pain) Do not crush, chew, or split. 180 tablet 3 famotidine (Pepcid) 20 MG tablet Take 1 tablet (20 mg) by mouth in the morning and 1 tablet (20 mg)before bedtime. 180 tablet 0 gabapentin (Neurontin) 100 MG capsule Titrate from 1 to 2 capsules three times daily as needed for pain 540 capsule 1 isosorbide mononitrate ER (Imdur) 30 MG 24 hr tablet Take 30 mg by mouth Daily (Patient not taking:Reported on 09/18/2024) latanoprost (Xalatan) 0.005 % ophthalmic solution losartan (Cozaar) 50 MG tablet Take 1 tablet (50 mg) by mouth Daily 90 tablet 1 metoprolol tartrate (Lopressor) 100 MG tablet Take 1 tablet (100 mg) by mouth See administration instructions 1 tablet in AM. 0.5 tablet in PM 135 tablet 0 Multiple Vitamin (multivitamin) capsule Take 1 capsule by mouth Daily oxybutynin XL (Ditropan-XL) 5 MG 24 hr tablet pioglitazone (Actos) 30 MG tablet Take 1 [...] the morning and 1 drop before bedtime. No current facility-administered medications on file prior to visit. 1. Type 2 diabetes mellitus with diabetic polyneuropathy, without long-term current use of insulin ([facility]) Chronic problem, stable, to goal. He is not having so much pain with his polyneuropathy and I think the gabapentin is helping there, but he is having imbalance especially on uneven ground. - pioglitazone (Actos) 30 MG tablet; Take 1 tablet (30 mg) by mouth in the morning. Dispense: 90 tablet; Refill: 1 - gabapentin (Neurontin) 100 MG capsule; 2 capsules in Am 3 capsules at bedtime Dispense: 450 capsule; Refill: 1 - Comprehensive metabolic panel; Future - Hemoglobin A1c; Future - Comprehensive metabolic panel - Hemoglobin A1c 2. Type 2 diabetes mellitus with diabetic microalbuminuria, without long-term current use of insulin ([facility]) - Comprehensive metabolic panel; Future - Hemoglobin A1c; Future - Comprehensive metabolic panel - Hemoglobin A1c 3. Essential hypertension Chronic problem, stable, to goal. When refilling the metoprolol I did just it in clarification only so that the prescription itself reads better. - losartan (Cozaar) 50 MG tablet; Take 1 tablet (50 mg) by mouth Daily Dispense: 90 tablet; Refill:1 - metoprolol tartrate (Lopressor) 100 MG tablet; Take 1 tablet (100 mg) by mouth Daily in the Morning AND 0.5 tablets (50 mg) in the evening. 1 tablet in AM. 0.5 tablet in PM. Dispense: 135 tablet; Refill: 1 - Comprehensive metabolic panel; Future - Comprehensive metabolic panel 4. Microalbuminuria Chronic problem, defining an aspect the nephropathy, with significant risk, uncertain progression requiring longitudinal monitoring, and moderate decision making. Microalbuminuria describes a moderate increase in the level of urine albumin. Normally, the kidneysfilter albumin, so if the kidney leaks small amounts of albumin into the urine then it is a indicator of chronic kidney disease. Microalbuminuria is an independent indicator of increased cardiovascular risk among individuals andtherefore can be used for risk stratification for cardiovascular disease. 5. Mixed hyperlipidemia - Lipid panel; Future - Lipid panel 6. Adverse reaction to statin medication Exclusionary diagnosis for the HEDIS measures for statin 7. Former smoker 8. Morbid obesity ([facility]) Encouraged lifestyle changes. We did talk about diet. 9. Dyspepsia Doing well. - famotidine (Pepcid) 20 MG tablet; Take 1 tablet (20 mg) by mouth in the morning and 1 tablet (20 mg) before bedtime. Dispense: 180 tablet; Refill: 1 Chronic problem The patient meets the criteria for polypharmacy; 5 or more prescriptions or multi-morbidity definedas 5 or more diagnoses. Polypharmacy can significantly increase the risk of adverse drug events and negatively impact adherence. Consideration of factors such as clinician agreement, patient perspective, and de-prescribing,as appropriate can improve patient outcomes while simplifying care. This requires longitudinal monitoring as there is at least a moderate risk of morbidity and requires at least a moderate degree of evaluation and management. Please Note: Portions of this chart may have been created using voice recognition software. Occasionally a wrong-word or sound-like substitutions may have occurred due to inherent limitations of the voice recognition software. Please read the chart carefully and recognize, using context, where the substitutions may have occurred. documented in this encounterSelect Specialty HospitalYysxydmuzc95-69-0300 Hospital Discharge instructions Patient Education 02/08/2025 08:40:53 Benign Prostatic Hyperplasia Benign Prostatic Hyperplasia Benign prostatic hyperplasia (BPH) is an enlarged prostate gland that is caused by the normal agingprocess. The prostate may get bigger as a man gets older. The condition is not caused by cancer. The prostate is a walnut-sized gland that is involved in the production of semen. It is located in front of the rectum and below the bladder. The bladder stores urine. The urethra carries stored urine ou t of the body. An enlarged prostate can press on the urethra. This can make it harder to pass urine. The buildup of urine in the bladder can cause infection. Back pressure and infection may progress to bladder damage and kidney (renal) failure. What are the causes? This condition is part of the normal aging process. However, not all men develop problems from thiscondition. If the prostate enlarges away from the [...] urethra. Follow these instructions at home: Take izww-ldg-ebwxswh and prescription medicines only as told by [...] provider. Document Revised: 12/09/2021 Document Reviewed: 12/09/2021 [employer] Patient Education 2023 [employer]. Follow Up Care 01/14/2025 08:10:35 With:KERI NOLASCO, Topher Ordoñez, URL Address: [address] [place] [phone] When: Unknown Comments:6 mos [facility] 09-05-2025 NotePatient Education Urology Benign Prostatic Hyperplasia Benign prostatic hyperplasia (BPH) is an enlarged prostate gland that is caused by the normal agingprocess. The prostate may get bigger as a man gets older. The condition is not caused by cancer. The prostate is a walnut-sized gland that is involved in the production of semen. It is located in front of the rectum and below the bladder. The bladder stores urine. The urethra carries stored urine ou t of the body. An enlarged prostate can press on the urethra. This can make it harder to pass urine. The buildup of urine in the bladder can cause infection. Back pressure and infection may progress to bladder damage and kidney (renal) failure. What are the causes? This condition is part of the normal aging process. However, not all men develop problems from thiscondition. If the prostate enlarges away from the [...] this procedure, a tool is inserted through theopening at the tip of the penis (urethra). [...] procedure uses radio frequencies to destroy and removea small amount of prostate tissue. ? Interstitial laser coagulation (ILC). This procedure uses a laser to destroy and remove a small amount of prostate tissue. ? Transurethral electrovaporization (TUVP). This procedure uses electrodes to destroy and remove a small amount of prostate tissue. ? Prostatic urethral lift. This procedure inserts an implant to push the lobes of the prostate awayfrom the urethra. Follow these instructions at home: ??? Take bfln-cxq-rfbozyy and prescription medicines only as told by [...] symptoms do not get (more content not included)...[facility]07-18-2025 NotePatient is here for surgery clearance. Patient is having right 5th hammer toe removed. Patient states he feels pretty good, patient is able to every day chores. Patient denies cardiac symptoms at this [facility] [place] NoteSUBJECTIVE Reason for Visit: Juan Miguel Jennings is a 74 y.o. year old male patient being seen for surgical clearance. HPI: Juan Miguel Jennings is a 74 y.o. year old male with significant medical history of CAD status post WA with stenting procedures in the past (2006, [...] is normal; visually estimate (more content not included)...[facility]06-30-2025 Telephone encounter Note* Telephone Encounter - Laisha Castaneda - 12/03/2024 8:18 AM EDT Bret called requesting a refill on his cyclobenzaprine (Flexeril) [facility] [place] [facility] HospitalWfoygxnxkv99-90-5527 Miscellaneous Notes* Telephone Encounter - Laisha Castaneda - 12/03/2024 8:18 AM EDT Bret called requesting a refill on his cyclobenzaprine (Flexeril) [facility] MG [facility] [place] documented in this encounterSelect Specialty HospitalEzosoxezwo49-26-5575 Telephone encounter Note* Telephone Encounter - Jordan Duncan MD - 10/18/2024 12:45 PM EDT Reviewed in prescription sent. [facility] HospitalZunfkyccto65-15-1274 Miscellaneous Notes* Telephone Encounter - Jordan Duncan MD - 10/18/2024 12:45 PM EDT Reviewed [...] and has not had it refilled in hile and his RX is . He is asking for these to go to [facility] in [place]. documented in this encounterSelect Specialty HospitalRxzfxwpwjh63-08-8319 Telephone encounter Note* Telephone Encounter - Laisha Castaneda - 10/18/2024 [...] asking for these to go to [facility] in [place]. [facility] HospitalKvoahxxons03-52-9882 History of Present illness Narrative* Jordan Duncan MD - 09/18/2024 9:30 AM EDT Images from the original note [...] History of target organ damage: prior coronary re vascularization. Hyperlipidemia Pt who presents for follow-up of dyslipidemia. A repeat fasting lipid profile was done. The patientdoes not use medications that may worsen dyslipidemias (corticosteroids, progestins, anabolic steroids, diuretics, beta-blockers, amiodarone, cyclosporine, olanzapine). Exercise: daily. Diabetes Mellitus Patient presents for follow up of diabetes. Current symptoms include: paresthesia of the feet. Symptoms have stabilized. Patient denies increased appetite and visual disturbances. Evaluation to date has included: fasting lipid panel and hemoglobin A1C. Home sugars: BGs consistently in an acceptablerange. Review of Systems Constitutional: Negative for activity [...] in the morning and 1 tablet (20 mg)before bedtime. 180 tablet 0 latanoprost (Xalatan) 0.005 [...] 30 mg by mouth Daily (Patient not taking:Reported on 09/18/2024) [DISCONTINUED] testosterone cypionate (Depo-Testosterone) 200 MG/ML injection Inject 200 mg into the shoulder, thigh, or buttocks every 28 (twenty-eight) days. (Patient not taking: Reported on 07/25/2024) No current facility-administered medications on file prior to visit. 1. Essential hypertension (CMS/[facility]) (Primary) Chronic problem, stable, to goal. In [...] mg) by mouth Daily Dispense: 90 tablet; Refill:1 - metoprolol tartrate (Lopressor) 100 MG tablet; Take 1 tablet (100 mg) by mouth See administrationinstructions 1 tablet in AM. 0.5 tablet in [...] the level of urine albumin. Normally, the kidneysfilter albumin, so if the kidney leaks small amounts of albumin into the urine then it is a indicator of chronic kidney disease. Microalbuminuria is an independent indicator of increased cardiovascular risk among individuals andtherefore can be used for risk stratification for [...] relief with gabapentin. I did explain to himhow to titrate into the gabapentin in the [...] understands he would be better served by treatment.They talked about some of the other injectables he is working with another physician on that. 6. Adverse reaction to statin medication Exclusionary measure for HEDIS. documented in this encounterSelect Specialty [id number] History of Present illness Narrative* Jordan Duncan MD - 07/25/2024 11:00 AM EST Images from the original note [...] in the morning and 1 tablet (20 mg)before bedtime. 180 tablet 0 latanoprost (Xalatan) 0.005 [...] 30 mg by mouth Daily (Patient not taking:Reported on 07/25/2024) testosterone cypionate (Depo-Testosterone) 200 MG/ML [...] [facility] as Referring Physician (Orthopaedic Surgery) [...] Yes Vision Screening: Yes, patient sees regular cash applications clerk/reamer hand Hearing Screening: Yes, concerned about hearing loss Cognitive Screening Self Assessment: No concerns rasied by family members, friends, or caretakers Three Word Registration: Zakiya Decker, Finger Clock Drawing: Normal Clock - 2 Three Word Recall: 2/3 words correct - 2 Total Score (0-5 Points): 4 Advance Care Planning Do you have a living will?: Yes Do you have a medical power of bookkeeping manager?: Yes Who is your medical power of bookkeeping manager?: Mary Yancey- Daughter Objective : BP 120/74 [...] discussing health maintenance issues, ordering testing as appropriate,and a schedule was reviewed regarding recommended screening. [...] Morbid (severe) obesity due to excess calories ([facility]) Patient has lost some weight but with his comorbid conditions he still meets the criteria for morbid obesity. 6. BMI 39.0-39.9,adult Defines the morbid obesity 7. Type 2 diabetes mellitus with diabetic polyneuropathy, without long-term current use of insulin ([facility]) Chronic problem, stable, monitored longitudinally. 8. Type 2 diabetes mellitus with diabetic microalbuminuria, without long-term current use of insulin ([facility]) Chronic problem, stable, monitored longitudinally. 9. Type 2 diabetes mellitus with foot ulcer (CODE) ([facility]) Chronic problem, stable, monitored longitudinally. Primarily [...] longitudinally.Primarily managed by Podiatry 13. 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 He [...] on the left s (more content not included)...[facility]01-30-2025 History of Present illness Narrative* Luh Hoffman RN - 07/05/2024 1:00 PM EST Pt arrived for scheduled phlebotomy. 1322 Right [...] and rehydrate for the rest of the day.If having any dizziness to rest until feeling better. 1348 Pt discharged ambulatory at this time. Resp easy. Denies any dizziness. [facility] Telephone encounter Note* Telephone Encounter - Jordan Duncan MD - 06/18/2024 7:50 AM EST Prescription sent [facility] [id number] Miscellaneous Notes* Telephone Encounter - Jordan Duncan MD - 06/18/2024 7:50 AM EST Prescription sent * Telephone Encounter - Laishamima Castaneda - 06/18/2024 7:38 AM EST Bret left a message requesting a refill on his Famotidine to [facility] in [place]. documented in this encounterSelect Specialty [id number] Telephone encounter Note* Telephone Encounter - Laisha Castaneda - 06/18/2024 7:38 AM EST Bret left a message requesting a refill on his Famotidine to [facility] in [place]. [facility] Specialty [id number] NoteContacted patient to discuss lipids management. Reviewed mechanism of action, side effects, and administration of Repatha with patient; pt agreeable to start. Will send RX to assess costs. Of note, pt may qualify for patient assistance foundation. Will fill out paperwork and send to Cardiology to assist in obtaining signature and income documents. Iron Sherwood PharmD Cardiology Outpatient Clinical Pharmacist 06/11/24[facility]01-03-2025 NoteApplication for Repatha [employer] filled out for patient. Requires patient signature. Will notify Cardiology computer customer support specialist to coordinate signature by patient. Application uploaded to media. Patient will come to Cardiology clinic to sign. Iron Sherwood PharmD Cardiology Outpatient Clinical Pharmacist 06/14/24[facility]01-03-2025 NotePharmD Cardiology Consult - Lipids Provider: Dr. Huddleston Department: Cardiology Juan Miguel Jennings is a 74 y.o. male with PMH of CAD s/p WA and stents, HTN, HLD, MO w/ CPAP, [...] Iron Sherwood PharmD Cardiology Outpatient Clinical Pharmacist 06/11/24[facility]12-16-2024 Hospital Discharge instructions Patient Education 05/21/2024 12:15:54 [...] You may also have very sensitive muscles thatmake your bladder squeeze too soon. This condition [...] your health care provider. General instructions Take xrbw-uvo-nozulcx and prescription medicines only as told by your health care provider. If you were prescribed an antibiotic medicine, take it as told by your health care provider. Do notstop taking the antibiotic even if you start [...] provider. Document Revised: 02/09/2021 Document Reviewed: 02/09/2021 [employer] Patient Education 2023 GalaDo. Follow Up Care 02/27/2024 09:12:26 With:KERI NOLASCO, Topher Ordoñez, URL Address: [facility] [address], [place] [address]- When: Unknown [facility] 12-16-2024 Evaluation + Plan note Diagnostic Tests Pending * Testosterone Level Total 05/21/24 * CBC w/ Auto Diff 05/21/24 [facility] 12-16-2024 NotePatient Education Obstetrics and Gynecology Overactive Bladder, Adult [...] You may also have very sensitive muscles thatmake your bladder squeeze too soon. This condition [...] health care provider. General instructions ??? Take qotp-nlc-ndlkpsc and prescription medicines only as told by your health care provider. ??? If you were prescribed an antibiotic medicine, take it as told by your health care provider. Donot stop taking the antibiotic even if you start to feel better. ??? Use any implants or pessary as told by your health care provider. ??? If needed, wear pads to absorb urine leakage. ??? Keep a log to track how much and when you drink, and whe (more content not included)...[facility]12-10-2024 History of Present illness Narrative* Brody Ibrahim DPM - 05/15/2024 10:15 AM EST Images from the original note were not included. Subjective Patient ID: Juan Miguel Jennings is a 74 y.o. male who presents for Diabetic shoe check (Juan Miguel Jennings is a 74 y.o. male who presents diabetic shoe check. PCP: Dr. Dakota YARBROUGH 03/27/24, A1C: 6.4 (5/),BS: 132 SS: 14.). HPI Three-week initial assessment [...] drop into both eyes at bedtime, Disp: ,Rfl: Allergies Clindamycin, Ezetimibe, Glipizide, Metformin, Pravastatin, and [...] understanding. Brody Ibrahim DPM documented in this [facility]12-10-2024 Instructions* Patient Instructions* Brody Ibrahim DPM - 05/15/2024 10:15 AM EST As noted documented in this [facility]11-27-2024 NoteCardiovascular Medicine [facility] SUBJECTIVE Chief Complaint Patient presents with Coronary Artery Disease Hypertension Juan Miguel Jennings is a 74 y.o. male here for follow-up. HPI PMHx: CAD s/p WA and stenting, HTN, HLD, MO and wears [...] of colon cancer Testicular hypofunction Hx of correction use of blood thinners Internal derangement of [...] , Rfl: Physical Exa (more content not included)...[facility] 05-02-2024 NotePatient here for 1 year follow up CAD [...] flatus. All other systems reviewed and are negative.[facility] 04-23-2024 History of Present illness Narrative* Brody Ibrahim DPM - 04/23/2024 11:00 AM EST Images from the original note were not included. Subjective Patient ID: Juan Miguel Jennings is a 74 y.o. 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 male who presents for Foot Callouses. PCP: Dr. Duncan LV 03/27/24, A1C: 6.4 (5), BS: 132SS: 14. ). HPI Presents for fitting therapeutic [...] drop into both eyes at bedtime, Disp: ,Rfl: Allergies Clindamycin, Ezetimibe, Glipizide, Metformin, Pravastatin, and Rosuvastatin Past Surgical History Past Surgical History: Procedure Laterality Date BACK SURGERY 2010 BioniGeraldo CATARACT EXTRACTION Left 2019 [facility] OTHER SURGICAL HISTORY 03/2017 lesions on bottom of both feet[facility] OTHER SURGICAL HISTORY 4 stents Geraldo tSafford - 1997 OTHER SURGICAL HISTORY rectal cancer; [...] Raised IPK lesions sub-4th metatarsal condyle bilateral; non- inflamed. The site is non-tender, non-fluctuant, without drainage. [...] his understanding; emphasis on daily inspection for anysign of skin irritation, blister formation, heel slippage [...] corrected. Thank you for your understanding. Brody A Rusher, DPM documented in this [facility]11-18-2024 Instructions* Patient Instructions* Bordy Ibrahim DPM - 04/23/2024 11:00 AM EST Instructions as noted documented in this [facility]11-04-2024 Telephone encounter Note* Telephone Encounter - Chatawilly Polanco - 04/09/2024 3:53 PM EST Custom orthotics arrived drom Dr Gruber [facility] [id number] Miscellaneous Notes* Telephone Encounter - [facility] - 04/09/2024 3:53 PM EST Custom orthotics arrived drom Dr Gruber documented in this [facility]10-24-2024 History of Present illness Narrative* Brody Ibrahim DPM - 03/29/2024 1:00 PM EDT Images from the original note were not included. Subjective Patient ID: Juan Miguel Jennings is a 74 y.o. male who presents for Shoe Measure (Juan Miguel Jennings is a74 y.o. male who presents for Foot Callouses. PCP: Dr. Duncna 10/27/23, A1C: 6.3 (10/04), BS: 132 SS: [...] drop into both eyes at bedtime, Disp: ,Rfl: Allergies Clindamycin, Ezetimibe, Glipizide, Metformin, Pravastatin, and [...] Raised IPK lesions sub-4th metatarsal condyle bilateral; non- inflamed. The site is non-tender, non-fluctuant, without drainage. [...] Measurements obtained in the weight-bearing position utilizing Moondo device. Foam impressions obtained simulated weight-bearing. Patient [...] understanding. Brody Ibrahim DPM documented in this [facility]10-24-2024 Instructions* Patient Instructions* Brody Ibrahim DPM - 03/29/2024 1:00 PM EDT As noted documented in this [facility]10-22-2024 History of Present illness Narrative* Jordan Duncan MD - 03/27/2024 2:00 PM EDT Images from the original note were [...] >= 30 kg/m2). Use of agents associated withhypertension: steroids. History of target organ damage: none. [...] A1C. Home sugars: BGs are running consistent withHgb A1C. Also this is a dtme-kx-soxm visit for consideration for diabetic shoes. Patient [...] in the morning and 1 tablet (20 mg)before bedtime. 180 tablet 0 latanoprost (Xalatan) 0.005 [...] indicated. I certify that I had a jien-yu-vcgn encounter with this patient at todays office visit. Due to thismedical condition the patient requires DME. I certify that based on my findings The DME ordered is medically necessary for this patient. This has been discussed with the patient and/or their accounts receivable representative and mutually agreed upon. See the [...] microalbuminuria, without long-term current use of insulin ([facility]) Chronic problem, stable, to goal. 9. Microalbuminuria Chronic problem, defining an aspect the nephropathy, with significant risk, uncertain progression requiring longitudinal monitoring, and moderate decision making. Microalbuminuria describes a moderate increase in the level of urine albumin. Normally, the kidneysfilter albumin, so if the kidney leaks small amounts of albumin into the urine then it is a indicator of chronic kidney disease. Microalbuminuria is an independent indicator of increased cardiovascular risk among individuals andtherefore can be used for risk stratification for cardiovascular disease. 10. Essential hypertension ([facility]) In prescribing a renewal to their [...] mg) by mouth Daily Dispense: 90 tablet; Refill:1 - metoprolol tartrate (Lopressor) 100 MG tablet; Take 1 tablet (100 mg) by mouth See administrationinstructions 1 tablet in AM. 0.5 tablet in PM Dispense: 135 tablet; Refill: 1 - Comprehensive metabolic panel; Future - Comprehensive metabolic panel 11. Mixed hyperlipidemia ([facility]) - Lipid panel; Future - Lipid panel 12. Adverse reaction to statin medication Diagnosis for exclusion for HEDIS measures for both diabetes with statin and mixed dyslipidemia with statin. 13. Former smoker Continue nonsmoking 14. Morbid obesity ([facility]) Continue lifestyle changes as able documented in this encounterSelect Specialty [id number] History of Present illness Narrative* Brody Ibrahim, [facility] - 03/13/2024 9:45 AM EDT Images from the original note [...] in the morning., Disp: 90 tablet,Rfl: 1 Rhopressa 0.02 % solution, INSTILL 1 [...] drop into both eyes at bedtime, Disp: ,Rfl: Allergies Clindamycin, Ezetimibe, Glipizide, Metformin, Pravastatin, and [...] Raised IPK lesions sub-4th metatarsal condyle bilateral; non- inflamed. The site is non-tender, non-fluctuant, without drainage. [...] understanding. Brody Ibrahim DPM documented in this [facility]10-08-2024 Instructions* Patient Instructions* Brody Ibrahim DPM - 03/13/2024 9:45 AM EDT As noted documented in this encounterSelect Specialty [id number] Hospital Discharge instructions Patient Education 12/05/2023 11:29:39 [...] older. This is the main cause of thiscondition. Use of medicines, such as antidepressants, steroids, [...] therapy. Follow these instructions at home: Take mvoj-cis-kmltdbz and prescription medicines only as told by [...] for prostate cancer before putting you on testosteronetherapy. This information is not intended to replace advice given to you by your health care provider. Make sure you discuss any questions you have with your health care provider. Document Revised: 01/22/2021 Document Reviewed: 01/22/2021 Vet[employer] Patient Education 2022 GalaDo. Follow Up Care 12/05/2023 07:35:26 With:Topher SAAVEDRA MD, URL Address: [facility] [address] [place] [address]- [phone] When: Unknown [facility] 06-03-2024 Hospital Discharge instructions Follow Up Care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 Directive08/31/2013 9:46 AMDate ActivatedDate InactivatedComments 08/06/2016 9:06 AM08/09/2016 5:53 PMDate ActivatedDate InactivatedComments08/04/2016 9:28 PM08/06/2016 9:06 AMDate ActivatedDate NomgaxtelmqYcywnsor50/10/2015 12:42 PM 05/19/2015 6:52 PMDate ActivatedDate IyslfnhaxddDguptmue63/7/2015 11:22 AM 05/15/2015 12:42 PMDate ActivatedDate UuutorqjjtyWwhfynvw71/8/2014 2:36 PM 05/13/2014 9:20 PM Advance Directive [...] section and content) DATE CREATED AUTHOR 11/24/2017 [facility] DATE CREATED AUTHOR AUTHOR'S ORGANIZ ATION 03/15/2018 [facility] DATE CREATED AUTHOR AUTHOR'S ORGANIZ ATION 09/26/2021 [facility] [employer] DATE CREATED AUTHOR AUTHOR'S ORGANIZ ATION 11/13/2022 [facility] DATE CREATED AUTHOR AUTHOR'S ORGANIZ ATION 07/07/2024 [facility] DATE CREATED AUTHOR AUTHOR'S ORGANIZ ATION 01/08/2025 [facility] DATE CREATED AUTHOR AUTHOR'S ORGANIZ ATION 01/11/2025 [facility] DATE CREATED AUTHOR AUTHOR'S ORGANIZ ATION 02/10/2025 [facility] DATE CREATED AUTHOR AUTHOR'S ORGANIZ ATION 02/16/2025 [facility] DATE CREATED AUTHOR AUTHOR'S ORGANIZ ATION 03/17/2025 [facility] DATE CREATED AUTHOR AUTHOR'S ORGANIZ ATION 03/26/2025 [facility] EPIC Care Team (unrecognized sect ion and content) Team MemberRelationshipSpecialtyStart DateEnd Date Jordan Duncan MD PCP - General07/25/19Team MemberRelationshipSpecialtyStart DateEnd Date Jordan Duncan MD [address] [place] [id number] PCP - GeneralFamily Medicine10/25/22 Mitch Mello MD [address] [place] [address] Referring BlzmxikitCuqbxdchll76/12/23 Jr. Anuja Henson DO [address] [place] [address] Referring PhysicianOrthopaedic Azuhahn21/12/23 Brody Ibrahim DPM [address] [place] [address] Referring BqaiibubiQnexzbbm57/12/23Team MemberRelationshipSpecialtyStart DateEnd Date Jordan Duncan MD [address] [place] [address] (Fax) PCP - Generalmily Medicine10/25/22 Mitch Mello MD [address] [place], [place] [id number] Referring IxbbweqeeDdymhqewdv92/12/23 Jr. Anuja Henson DO [address] [place] [address] Referring PhysicianOrthopaedic Mgfhtha85/12/23 Brody Ibrahim DPM [address] [place] [address] Referring XqdaebraiSwhaemrx90/12/23Team MemberRelationshipSpecialtyStart DateEnd Date Jordan Duncan MD [address] [place] [address] (Fax) [facility] - [facility]10/25/22 Jordan Duncan MD [address] [place] [address] (Fax) PCP - ACO Reach08/05/23 Mitch Mello MD [address] [place] [address] Referring YwyfpfzfxInmgsuwmnj45/12/23 Jr. Anuja Henson DO [address] [facility] [address] [place] [address] Referring PhysicianOrthopaedic Twmicog63/12/23 Brody Ibrahim DPM [address] [place] [address] Referring PbuqtcsybTjrjmlnv81/12/23Team MemberRelationshipSpecialtyStart DateEnd Date Jordan Duncan MD [address] [place] [address] (Fax) PCP - Generalmi Medicine10/25/22 Jordan Duncan MD [address] [place] [address] (Fax) PCP - ACO [facility]08/05/23 Mitch Mello MD [address] [place] [address] Referring PqsyxzscaDsvzjmxxnw45/12/23 Jr. Anuja Henson DO 112 [facility] 150 [place] [address] Referring PhysicianOrthopaedic Qlcngot09/12/23 Brody Ibrahim DPM [address] [facility] [place] [address] Referring CxqrcsrvkIvpyyckf76/12/23Team MemberRelationshipSpecialtyStart DateEnd Date Jordan Duncan MD [address] [place] [address] (Fax) PCP - GeneralFamily Medicine10/25/22 Jordan Duncan MD [address] [place] [address] (Fax) PCP - ACO [facility]08/05/23 Mitch Mello MD [address] [place] [address] Referring BpppydlsiSykkcnkvan80/12/23 Jr. Anuja Henson DO [address] [address] Referring PhysicianOrthopaedic Rcmwrhz23/12/23 Brody Ibrahim DPM [address] [place] [address] Referring FlftrrlftDaabamjx14/12/23Team MemberRelationshipSpecialtyStart DateEnd Date Jordan Duncan MD [address] [place] [address] (Fax) PCP - GeneralFamily Medicine10/25/22 Jordan Duncan MD [address] [place] [address] (Fax) PCP - [facility]08/05/23 Mitch Mello MD [address] [place] [address] Referring VnwcpxrviBgtsabgzsp62/12/23 Jr. Anuja Henson DO [address] [address] Referring PhysicianOrthopaedic Fqbgfmu71/12/23 Brody Ibrahim DPM [address] [place] [address] Referring VfpugvyzkIaabbnpb20/12/23Team MemberRelationshipSpecialtyStart DateEnd Date Jordan Duncan MD [address] [place] [address] (Fax) PCP - GeneralFamily Medicine10/25/22 Jordan Duncan MD [address] [place] [address] (Fax) PCP - [facility]08/05/23 Mitch Mello MD [address] [place] [address] Referring SuomgysvcZaywdbrlwi42/12/23 Jr. Anuja Henson DO [address] [address] Referring PhysicianOrthopaedic Xktuqqy68/12/23 Brody Ibrahim DPM 1900 [facility] [place] [address] Referring UaghbgbaaAyuygoux68/12/23Team MemberRelationshipSpecialtyStart DateEnd Date Jodran Duncan MD 112 [place] [address] (Fax) PCP - GeneralFamily Medicine10/25/22 Jordan Duncan MD [address] [place] [address] PCP - [facility]08/05/23 Mitch Mello MD [address] [place] [address] Referring YncjddgjwZpmeitjubs29/12/23 Jr. Anuja Henson DO [address] [facility] 150 [place] [address] Referring PhysicianOrthopaedic Thosery61/12/23 Brody Ibrahim DPM [address] [place], [place] [address] Referring YkxiedxsgKghppdpk80/12/23Team MemberRelationshipSpecialtyStart DateEnd Date Jordan Duncan MD [address] [place] [address] (Fax) [facility] - [facility] Jordan Duncan MD [address] [place] [phone] (Fax) PCP - O [facility]08/05/23 Mitch Mello MD [address] [place] [address] Referring BqrsuiyxfAnefnckost28/12/23 Jr. Anuja Henson DO [address] [facility] [address] [place] [address] Referring PhysicianOrthopaedic Rkfctag20/12/23 Brody Ibrahim DPM [address] [place], [place] [address] Referring RdjzgzumaNxwwvvmd69/12/23Team MemberRelationshipSpecialtyStart DateEnd Date Jordan Duncan MD [address] [place] [address] (Fax) PCP - GeneralFamily Medicine10/25/22 Jordan Duncan MD [address] [address] (Fax) PCP - [facility]08/05/23 Mitch Mello MD [address] [place] [address] Referring UabohwwjkAytgmgurwf80/12/23 Jr. Anuja Henson DO [address] [place] [address] [place] [address] Referring PhysicianOrthopaedic Eyovdoy81/12/23 Brody Ibrahim DPM [address] [place] [address] Referring MpndngsqfPpsmuuwm77/12/23Team MemberRelationshipSpecialtyStart DateEnd Date Jordan Duncan MD [address] [place] [address] (Fax) PCP - [facility]Ad[facility] Systemly Medicine10/25/22 Jordan Duncan MD [address] [place] [address] (Fax) PCP - [facility]08/05/23 Mitch Mello MD [address] [place] [address] Referring RoycaqmwoDcrayfttjv17/12/23 Jr. Anuja Henson DO [address] [place] [address] [place] [address] Referring PhysicianOrthopaedic Jemfywk55/12/23 Brody Ibrahim DPM [address] [place] [address] Referring ZprzsfwtyQfwbiwhg62/12/23Team MemberRelationshipSpecialtyStart DateEnd Date Jordan Duncan MD [address] [place] [address] (Fax) PCP - GeneralFamily Medicine10/25/22 Jordan Duncan MD [address] [place] [address] (Fax) PCP - [facility]08/05/23 Mitch Mello MD [address] [place] [address] Referring UahdojlhoAgzyyqlptp61/12/23 Jr. Anuja Henson DO [address] [place] [address] [place] [address] Referring PhysicianOrthopaedic Isyxaaq51/12/23 Brody Ibrahim DPM [address] [place] [address] Referring AljlyxfffHrmvncmf42/12/23Team MemberRelationshipSpecialtyStart DateEnd Date Jordan Duncan MD [address] [place] [address] (Fax) PCP - GeneralFamily Medicine10/25/22 Jordan Duncan MD [address] [place] [address] (Fax) PCP - [facility]08/05/23 Mitch Mello MD [address] [place] [address] Referring SgmjmiwgdMnusmrqvex69/12/23 Jr. Anuja Henson DO [address] [place] [address] [place] [address] Referring PhysicianOrthopaedic Cldvwiw03/12/23 Brody Ibrahim DPM [address] [place] [address] Referring HplqijrjzEpdnfsnv85/12/23Team MemberRelationshipSpecialtyStart DateEnd Date Jordan Duncan MD (Fax) PCP - General07/25/19Team MemberRelationshipSpecialtyStart DateEnd Date Jordan Duncan MD [address] [place] [address] (Fax) PCP - GeneralFamily Medicine10/25/22 Jordan Duncan MD [address] [place] [address] (Fax) PCP - [facility]08/05/23 Mitch Mello MD [address] [place], [place] [address] Referring ZkljkksoxQzaavmditx47/12/23 Jr. Anuja Henson DO [address] [place] [address] [place] [address] Referring PhysicianOrthopaedic Whrojmh40/12/23 Brody Ibrahim DPM [address] [place] [address] Referring UdpbocksaWzdhonvi46/12/23Team MemberRelationshipSpecialtyStart DateEnd Date Jordan Duncan MD [address] [place] [address] PCP - GeneralAdair [facility] Health Systemly Medicine10/25/22 Jordan Duncan MD [address] [place] [address] PCP - [facility]08/05/23 Jr. Anuja Henson DO [address] [place] [address] [place] [address] Referring PhysicianOrthopaedic Ixgidom50/12/23 Brody Ibrahim DPM [address] [place] [address] Referring GqrhedzwiStggexpg76/12/23 Anuja Huddleston MD [address] [place] [phone] Referring PhysicianFamily Medicine07/25/24 Topher Saavedra MD [address] [place] [phone] Referring PhysicianUrolog07/25/24 Kitty Edmond OD [address] [place], [place] [address]j[place] [address] Referring PhysicianOptometry07/25/24Team MemberRelationshipSpecialtyStart DateEnd Date Jordan Duncan MD [address] [place] [address] (Fax) PCP - GeneralFamily Medicine10/25/22 Jordan Duncan MD [address] [place] [address] (Fax) PCP - [facility]08/05/23 Jr. Anuja Henson DO [address] [facility] [address] [place] [address] Referring PhysicianOrthopaedic Jqmpogg29/12/23 Brody Ibrahim DPM 1900 [facility] [place] [address] Referring UkncsuwjfKmkvxfxt42/12/23 [place] [address] [place] [phone] Referring PhysicianFamily Medicine07/25/24 Topher Saavedra MD [address] [place] [address] Referring PhysicianUrology2 Kitty Edmond OD [address] [facility] [place] [address] Referring PhysicianOptometry07/25/24Team MemberRelationshipSpecialtyStart DateEnd Jordan Duncan MD [address] [facility] 100 [place] [address] (Fax) PCP - GeneralFamily Medicine10/25/22 Jordan Duncan MD [address] [place] [address] (Fax) PCP - [facility]08/05/23 Jr. Anuja Henson DO [address] [place] [address] [place] [address] Referring PhysicianOrthopaedic Dpwxqit10/12/23 Brody Ibrahim DPM [address] [facility] [place] [address] Referring VqdrprvsfXjalyeix36/12/23 Anuja Huddleston MD [address] [place] [address] (Fax) Referring PhysicianFamily Medicine07/25/24 Topher Saavedra MD [address] [place] [phone] Referring PhysicianUrolog07/25/24 Kitty Edmond OD [address] [facility] [place] [address] Referring PhysicianOptometry07/25/24Team MemberRelationshipSpecialtyStart DateEnd Date Jordan Duncan MD [address] [place] [address] (Fax) PCP - GeneralFamily Medicine10/25/22 Jordan Duncan MD [address] [place] [address] (Fax) PCP - [facility]08/05/23 Jr. Anuja Henson DO [address] [place] [address] [place] [address] Referring PhysicianOrthopaedic Iseewen57/12/23 Brody Ibrahim DPM [address] [place] [address] Referring KkktnbunoZdwpjjxp15/12/23 Anuja Huddleston MD [address] [place] [address] Referring PhysicianFamily Medicine07/25/24 Topher Saavedra MD [address] [place], [place] [address] Referring PhysicianUrolog07/25/24 Kitty Edmond OD [address] [facility] [place] [address] Referring PhysicianOptometry07/25/24Team MemberRelationshipSpecialtyStart DateEnd Jordan Duncan MD [address] [place] [address] PCP - GeneralFamily Medicine10/25/22 Jordan Duncan MD [address] [place] [address] PCP - [facility]08/05/23 Jr. Anuja Henson DO [address] [place] [address] [place] [address] Referring PhysicianOrthopaedic Asctmbz53/12/23 Brody Ibrahim DPM [address] [place] [address] Referring DokezsiucWcqoofqa35/12/23 Anuja Huddleston MD [address] [place] [phone] Referring PhysicianFamily Medicine07/25/24 Topher Saavedra MD [address] [place], [place] [phone] Referring PhysicianUrolog07/25/24 Kitty Edmond OD [address] [facility] [address] Referring PhysicianOptometry07/25/24Team MemberRelationshipSpecialtyStart DateEnd Jordan Duncan MD [address] [facility] 100 [place] [address] PCP - GeneralFamily Medicine10/25/22 Jordan Duncan MD [address] [facility] 100 [place] [address] PCP - [facility]08/05/23 Jr. Anuja Henson DO [address] [facility] 150 [place] [address] Referring PhysicianOrthopaedic Inxxojl51/12/23 Brody Ibrahim DPM [address] [place] [address] Referring EstvuuqyfJhnyrngk67/12/23 Anuja Huddleston MD [address] [place] [phone] (Fax) Referring PhysicianFamily Medicine07/25/24 Topher Saavedra MD [address] [place], [place] [phone] Referring PhysicianUrolog07/25/24 Kitty Edmond OD [address] [facility] [place] [address] Referring PhysicianOptometry07/25/24Team MemberRelationshipSpecialtyStart DateEnd Date Jordan Duncan MD [address] [place] [address] (Fax) PCP - GeneralFamily Medicine10/25/22 Jordan Duncan MD [address] [place] [address] (Fax) PCP - [facility]08/05/23 Jr. Anuja Henson DO [address] [place] [address] [place] [address] Referring PhysicianOrthopaedic Mptkmqp63/12/23 Brody Ibrahim DPM [address] [place] [address] Referring GmqpzfzidAyotqvix27/12/23 Anuja Huddleston MD [address] [place] [phone] (Fax) Referring PhysicianFamily Medicine07/25/24 Topher Saavedra MD [address] [place] [address] Referring PhysicianUrolog07/25/24 Kitty Edmond, CATHERINE [address] [place] [address] Referring PhysicianOptometry07/25/24 Korin Kraft, RN [address] [place] [address] Registered NurseFamily Medicine12/24/24Team MemberRelationshipSpecialtyStart Date End Date Jordan Duncan MD [address] [place] [address] (Fax) PCP - Generalmily Medicine10/25/22 Jordan Duncan MD [address] [place] [address] (Fax) PCP - [facility]08/05/23 Jr. Anuja Henson DO [address] [place] [address] [place] [address] Referring PhysicianOrthopaedic Kmvinvy69/12/23 Brody Ibrahim DPM [address] [place] [address] Referring JzqjnzmerDexfmdkt29/12/23 Anuja Huddleston MD [address] [place] [phone] (Fax) Referring PhysicianFamily Medicine07/25/24 Topher Saavedra MD [address] [place] [address] Referring PhysicianUrolog07/25/24 Kitty Edmond OD [address] [place] [address] Referring PhysicianOptometry07/25/24 Korin Kraft, RN [address] [facility] [address] [place] [address] Registered NurseFamily Medicine12/24/24Team MemberRelationshipSpecialtyStart Date End Date Jordan Duncan MD [address] [place] [address] PCP - GeneralFamily Medicine10/25/22 Jordan Duncan MD [address] [place] [address] PCP - [facility]08/05/23 Jr. Anuja Henson DO [address] [place] [address] [place] [address] Referring PhysicianOrthopaedic Jidlgac95/12/23 Brody Ibrahim DPM [address] [facility] [place] [address] Referring HiglzhoejMkazdfwm18/12/23 Anuja Huddleston MD [address] [place] [phone] (Fax) Referring PhysicianFamily Medicine07/25/24 Topher Saavedra MD [address] [place] [address] Referring PhysicianUrolog07/25/24 Kitty Edmond OD [address] [facility] [place] [address] Referring PhysicianOptometry07/25/24 Team Status: Inactive Member Role Status Dates Enedina Hargrove DPM MS Attending Provider Active Start: January 01, 2025 End: January 01, 2025Team MemberRelationshipSpecialtyStart DateEnd Date Jordan Duncan MD [address] [place] [address] (Fax) PCP - GeneralFamily Medicine10/25/22 Jordan Duncan MD [address] [place] [address] (Fax) PCP - [facility]08/05/23 Jr. Anuja Henson DO [address] [place] [address] [place] [address] Referring PhysicianOrthopaedic Bizztom80/12/23 Brody Ibrahim DPM [address] [place] [address] Referring VmbwsyqiyPtkyhspe49/12/23 [place] [address] [place] [phone] Referring PhysicianFamily Medicine07/25/24 Topher Saavedra MD [address] [place] [address] Referring PhysicianUrolog07/25/24 Kitty Edmond OD [address] [facility] [place] [address] Referring PhysicianOptometry07/25/24Team MemberRelationshipSpecialtyStart DateEnd Date Jordan Duncan MD [address] [facility] 100 [place] [address] (Fax) PCP - GeneralFamily Medicine10/25/22 Jordan Duncan MD [address] [place] [address] (Fax) PCP - [facility]08/05/23 Jr. Anuja Henson DO [address] [place] [address] [place] [address] Referring PhysicianOrthopaedic Xpudjut94/12/23 Brody Ibrahim DPM [address] [facility] [place] [address] Referring GamskhflfTnxzkqdl26/12/23 Anuja Huddleston MD [address] [place] [phone] (Fax) Referring PhysicianFamily Medicine07/25/24 Topher Saavedra MD [address] [place] [phone] Referring PhysicianUrolog07/25/24 Kitty Edmond OD [address] [facility] [place] [address] Referring PhysicianOptometry07/25/24Team MemberRelationshipSpecialtyStart DateEnd Date Jordan Duncan MD [address] [place] [address] (Fax) PCP - GeneralFamily Medicine10/25/22 Jordan Duncan MD [address] [place] [address] (Fax) PCP - [facility]3/1/24 Jr. Anuja Henson DO [address] [place] [address] [place] [address] Referring PhysicianOrthopaedic Vycfucy21/12/23 Brody Ibrahim DPM [address] [place] [address] Referring OhvpqjgnlIfpmivno72/12/23 Anuja Huddleston MD [address] [place] [address] Referring PhysicianFamily Medicine07/25/24 Topher Saavedra MD [address] [place] [phone] Referring PhysicianUrolog07/25/24 Kitty Edmond OD [address] [facility] [place] [address] Referring PhysicianOptometry07/25/24Team MemberRelationshipSpecialtyStart DateEnd Date Jordan Duncan MD [address] [place] [address] (Fax) PCP - GeneralFamily Medicine10/25/22 Jordan Duncan MD [address] [place] [address] PCP - [facility]08/05/23 Jr. Anuja Henson DO [address] [place] [address] [place] [address] Referring PhysicianOrthopaedic Yabqphx56/12/23 Brody Ibrahim DPM [address] [place] [address] Referring GcwxjrvikSqaurncb02/12/23 Anuja Huddleston MD [address] [place] [phone] Referring PhysicianFamily Medicine07/25/24 Topher Saavedra MD [address] [place] [address] Referring PhysicianUrolog07/25/24 Kitty Edmond OD [address] [facility] [place] [address] Referring PhysicianOptometry07/25/24Team MemberRelationshipSpecialtyStart DateEnd Jordan Duncan MD [address] [facility] [address] [place] [address] PCP - GeneralAdair [facility] Health Systemly Medicine10/25/22 Jordan Duncan MD [address] [facility] [address] [place] [address] PCP - [facility]08/05/23 Mitch Mello MD [address] [place] [phone] Referring PqgtjimfoTbtpqtbdfo98/12/232 Jr. Anuja Henson DO [address] [place] [address] [place] [address] Referring PhysicianOrthopaedic Qmluuik74/12/23 Brody Ibrahim DPM [address] [place] [address] Referring VfmvzhhmlPbfqwwjh83/12/23 Anuja Huddleston MD [address] [place] [phone] (Fax) Referring PhysicianFamily Medicine07/25/24 Topher Saavedra MD [address] [place] [address] Referring PhysicianUrolog07/25/24 Kitty Edmond OD [address] [place] [address] Referring PhysicianOptometry07/25/24 Korin Kraft, ARUN [address] [place] [address] Registered NurseFamily MedicineTeam MemberRelationshipSpecialty Start DateEnd Date Jordan Duncan MD [address] [facility] 100 [place] [address] PCP - GeneralFamily Medicine10/25/22 Jordan Duncan MD [address] [place] [address] (Fax) PCP - [facility]08/05/23 Mitch Mello MD [address] [place] [address] Referring BcejjtoweXjjjwbnvbm11/12/232 Jr. Anuja Henson DO [address] [place] [address] [place] [address] Referring PhysicianOrthopaedic Akuzocd90/12/23 Brody Ibrahim DPM [address] [place] [address] Referring QgbvrutonRtlccwuy22/12/23 Anuja Huddleston MD [address] [place] [address] Referring PhysicianFamily Medicine07/25/24 Topher Saavedra MD [address] [place], [place] [phone] Referring PhysicianUrolog07/25/24 Kitty Edmond OD [address] [facility] [place] [address] Referring PhysicianOptometry07/25/24 Korin Kraft, RN [address] [place] [address] Registered NurseFamily MedicineTeam MemberRelationshipSpecialty Start DateEnd Date Jordan Duncan MD [address] [place] [address] (Fax) PCP - GeneralFamily Medicine10/25/22 Jordan Duncan MD [address] [place] [address] (Fax) PCP - [facility]08/05/23 Jr. Anuja Henson DO [address] [place] [address] [place] [address] Referring PhysicianOrthopaedic Glecbfu08/12/23 Brody Ibrahim DPM [address] [place] [address] Referring RxsbqzwlvWwmuwkmi64/12/23 Anuja Huddleston MD [address] [place] [phone] Referring PhysicianFamily Medicine07/25/24 Topher Saavedra MD [address] [place] [address] Referring PhysicianUrology2 Kitty Edmond OD [address] [facility] [address] Referring PhysicianOptometry07/25/24 Reason for Visit (unrecogniz ed section and content) ReasonCommentsNail careJuan Miugel Jennings is a 73 y.o. male who presents for Nail care and discuss inserts. Pt relates recently saw Dr Hargrove right foot ulcer, which has improved. Dr. Ruiz 05/17/2023 BS 121 A1C 6.0(04/2023)/ SS14 ReasonCommentsFUJeanne Jennings is a 73 y.o. male who presents for Foot Callouses. PCP: Dr. Dakota YARBROUGH 10/27/23, A1C: 6.3 (10/04), BS: 132 SS: 14Reason CommentsHypertensionHyperlipidemiaDiabetesReasonCommentsShoe Payal Jennings is a 74 y.o. male who presents for Foot Callouses. PCP: Dr. Dakota YARBROUGH 10/27/23, A1C: 6.3 (10/04), BS: 132 SS: 14ReasonOnset DateCommentsAdvice Only 04/09/2024orthoticsReasonCommentsShoe Pick Vivian Jennings is a 74 y.o. male who presents for Foot Callouses. PCP: Dr. Dakota YARBROUGH 03/27/24, A1C: 6.4 (10/04), BS: 132 SS: 14.ReasonCommentsDiabetic shoe checkJuan Miguel Jennings is a 74 y.o. male who presents diabetic shoe check. PCP: Dr. Dakota YARBROUGH 03/27/24, A1C: 6.4 (10/04), BS: 132 SS: 14.ReasonCommentsAnnual ExamReasonCommentsMed RefillReason CommentsDM Foot CareEstablished patient presents today for diabetic foot check. And possibly starting shoe process. Patient have toe amputated on 01/01/25. Patient reports neuropathy has been getting worse, with numbness, tingling. Patient interested in doing diabetic shoe process. PCP: Dr. Dakota YARBROUGH 03/19/25, A1C: 6.4, BS: 130,ReasonCommentsDiabetic ShoesPt is here today for measuring and ordering of extra depth diabetic shoes. BS: 127 A1C: 6.4 Goals (unrecognized section and content) Goals may [...] BE BASED ON THE PRIMARY CLINICAL RECORDS. [facility]. provides no warranty or guarantee of the accuracy or completeness of information in this document.
== END 2025-04-10 09:40 | disposition home or self-care (01) ==
LOC: WC 09:40
PROVIDERS: PCP Family Medicine; Visit Provider Physician Assistant
DX: L84 Corns and callosities (principal); E11.40 Type 2 diabetes mellitus with diabetic neuropathy, unspecified
CPT/HCPCS: G0463

== ENCOUNTER 2025-05-15 09:17 | Outpatient (OUT) | payer MEDICARE, SELFPAY ==
--- OUTSIDE RECORDS SUMMARY | 2025-05-15 09:22 | XMS_ITS | CCD ---
Author Organization [facility] Care Team Providers Care Hand Box Coverer Name Role Phone PHYSICIAN, DEFAULT Unavailable Unavailable PHYSICIAN, DEFAULT Unavailable Unavailable Diego Bartlett Primary Care Provider Jordan Duncan Primary Care Provider Jordan Duncan MD Primary Care Provider [phone] JORDAN DUNCAN Primary Care Physician Jordan Duncan MD Primary Care Provider JORDAN DUNCAN Primary Care Physician Unavail able Jordan Duncan MD Primary Care Provider [phone] ENEDINA HARGROVE Attending Unavailable HEMEYER ., DR [...] ALATORRE Primary Care Unavailable HEMEYER ., DR ALATRORE Consulting Unavailable HEMEYER ., DR ALATORRE Attending [...] Brody Xiao Unavailable Jordan Duncan MD Unavailable [phone] Jordan Duncan MD Primary Care Provider [phone] Jordan Duncan MD Unavailable [phone] Jordan Duncan MD Primary Care Provider Jordan Duncan MD Unavailable [phone] Dakota NOLASCO, Jordan Brown Primary Care Provider [phone] WILLI SANCHEZ Referring Unavailable HEMEENOC, EDARSH Brown Primary Care Unavailable HEMEENOC, EDARSH Brown Primary Care Unavailable WILLI SANCHEZ Referring Unavailable HEMEENOC, EDARSH Brown Primary Care Unavailable WILLI SANCHEZ Referring Unavailable Anuja Huddleston MD Unavailable Topher Saavedra MD Unavailable [phone] Kitty Edmond OD Unavailable Anuja Huddleston MD Unavailable [phone] Abena DIAS, Korin Unavailable [phone] Enedina Hargrove DPM Attending Provider [phone] Enedina Hargrove Attending Unavailable Enedina Hargrove Admitting [...] Anuja Unavailable Keri NOLASCO, Topher Ordoñez Unavailable [phone] Funmilayo NOLASCO, Mitch Armendariz Unavailable [phone] Abena DIAS, Korin Unavailable JORDAN DUNCAN Attending Unavailable JORDAN DUNCAN Attending Unavailable RUS, BRODY Xiao Attending Unavailable JORDAN DUNCAN Attending Unavailable ALEXANDRIA, BRODY Xiao Attending Unavailable RUSHER, BORDY Xiao Attending Unavailable RUS, BRODY Xiao Attending Unavailable Allergies Allergy ClassificationReported Allergen(s)Allergy TypeDate of OnsetReaction(s) Facility (4 sources)Clindamycin/LincomycinPropensity to adverse reactions to drug 23-50-3082[place]qbmspchIkgcsNorwalk, [place] (3 sources)ClindamycinDrug Uuodqdu41-04-3314QRBRAPPAHANNOCK [facility] (4 sources)glipiZIDE; Translations: [GLIPIZIDE]Drug Jlbkqcx66-39-6178ClyjzndwCBUCarilion Clinic Work Phone: (20 sources)metFORMIN; Translations: [METFORMIN]Drug Fsxmqes12-68-1853UjuqskziCentra [facility] Work Phone: (20 sources)Pravastatin; Translations: [PRAVASTATIN]Drug Aawpnqa89-36-5363 [facility] Work Phone: (4 sources)rosuvastatin; Translations: [ROSUVASTATIN]Drug Vrogqix19-51-4853TUMRAPPAHANNOCK [facility] Work Phone: (2 sources)Clindamycin; Translations: [CLINDAMYCIN]Drug Shsgyxj57-13-9013[facility] (1 source)glipiZIDEDrug Pnisohf81-05-6631SrbC[facility] Clinic [facility] (1 source)metFORMINDrug Szhivcr34-83-3605SymCleveland Clinic [facility] (20 sources)ClindamycinDrug Isevykt96-13-6863VmrmugvzJJFW Healthcare (20 sources)ezetimibe; Translations: [EZETIMIBE]Drug Iigaken27-92-6271[facility] (20 sources)glipiZIDEDrug Pszgyvy79-21-5312Sfaiiujc, [facility] (20 sources)Rosuvastatin calciumAllergy to mvipptrqp75-66-6200DpfyiviBOHN Healthcare Medications Current Medications MedicationDrug Class(es)DatesSig (Normalized)Sig (Original)amLODIPine 5 mg oral tablet (18 sources)Dihydropyridine Calcium Channel BlockerStart: 06-08-2024 End: 73-50-3745amvb 1 tablet by mouth once dailyamLODIPine (Norvasc) 5 MG tablet Take 5 mg by mouth Daily 06/08/2024 03/19/2025 Discontinued (Therapy completed) aspirin 81 mg delayed release oral tablet (20 sources)Platelet Aggregation Inhibitor, Nonsteroidal Anti-inflammatory Drug Start: 60-32-0635jofz 1 tablet by mouth in the morningaspirin 81 MG EC tablet Indications: Arteriosclerosis of coronary artery Take 1 tablet (81 mg) by mouth in the morning. 04/19/2023 ActiveStart: 81-82-2944heby 1 mg by mouth once daily aspirin 81 mg oral tablet mg tab(s), Oral, Daily, Refills(s) 0 Start Date: 01/01/19 Status: Ordered Repeat number: 1Simbrinza (20 sources)Carbonic Anhydrase Inhibitor, alpha-Adrenergic AgonistStart: 59-17-0912babb 1 drop(s) into the eye(s) twice dailySimbrinza drop(s), Eye-Both, BID, Refill(s) 0 Start Date: 01/01/19 Status: Ordered Repeat number: 1Start: 19-94-8133nkai 1 drop(s) into the eye(s) twice dailySimbrinza drop(s), Eye-Both, BID, Refill(s) 0 Start Date: 01/01/19 Status: OrderedSimbrinza 1-0.2 % suspension every 8 (eight) hours Activebrinzolamide-brimonidine 1-0.2 % SUSP Apply to eye 3 times daily Activecholecalciferol 0.05 mg oral tablet (20 sources)Vitamin Dcholecalciferol (Vitamin D-3) 50 MCG (2000 UT) tablet Take by mouth ActiveCholecalciferol (VITAMIN D3) 50 MCG (2000 UT) TABS Take by mouth daily ActiveCholecalciferol (VITAMIN D3) 3000 UNITS TABS Take by mouth daily 0 ActiveCholecalciferol (VITAMIN D3) 3000 UNITS TABS Take by mouth. 0 Active cyclobenzaprine hydrochloride 10 mg oral tablet (20 sources)Muscle RelaxantStart: 04-19-2023 End: 10-74-9894yqtl 1 tablet by mouth three times daily as needed for muscle spasmscyclobenzaprine (Flexeril) 10 MG tablet Indications: Lumbar paraspinal muscle spasm Take 1 tablet (10 mg) by mouth 3 (three) times a day as needed for muscle spasms 270 tablet 12/03/2024 Activediclofenac sodium 75 mg delayed release oral tablet (20 sources)Nonsteroidal Anti-inflammatory DrugStart: 05-17-2023 End: 82-17-9995bbxj 1 tablet by mouth twice daily as needed for paindiclofenac (Voltaren) 75 MG EC tablet Indications: Chronic pain syndrome Take 1 tablet (75 mg) by mouth 2 (two) times a day as needed (pain) Do not crush, chew, or split. 180 tablet 3 12/24/2024 12/24/2025 Activeempagliflozin 25 mg oral tablet (20 sources)Sodium-Glucose Cotransporter 2 InhibitorStart: 23-78-7339kthc 1 mg by mouth once daily in the morningJardiance 25 mg oral tablet mg tab(s), Oral, qAM, Refills(s) 0 Start Date: 01/01/19 Status: Ordered Repeat number: 1famotidine 20 mg oral tablet (20 sources)Histamine-2 Receptor AntagonistStart: 12-13-2023 End: 27-11-8736ujuk 1 tablet by mouth in the morningfamotidine (Pepcid) 20 MG tablet Indications: Dyspepsia Take 1 tablet (20 mg) by mouth in the morning and 1 tablet (20 mg) before bedtime. 180 tablet 1 03/19/2025 09/15/2025 Active gabapentin 100 mg oral capsule (20 sources)Anti-epileptic AgentStart: 09-18-2024 End: 44-08-3991ngsjauylnz (Neurontin) 100 MG capsule Indications: Type 2 diabetes mellitus with diabetic polyneuropathy, without long-term current use of insulin (HCC) 2 capsules in Am 3 capsules at bedtime 450 capsule 1 03/19/2025 ActiveglipiZIDE 10 mg oral tablet (20 sources)SulfonylureaStart: 68-19-8764tjsu 10 mg by mouth once dailyglipiZIDE 10 mg, Oral, Daily, Refills(s) 0 Start Date: 01/01/19 Status: Ordered Repeat number: 1Inclisiran Sodium (LEQVIO SC) (9 sources)Inclisiran Sodium (LEQVIO SC) Inject under the skin Xgtgxr85 hr isosorbide mononitrate 30 mg extended release oral tablet (20 sources)Nitrate VasodilatorStart: 06-08-2024 End: 62-34-3292tzpi 1 tablet by mouth once daily, then take 1 tablet by mouth every twenty-four hoursisosorbide mononitrate ER (Imdur) 30 MG 24 hr tablet Take 30 mg by mouth Daily 06/08/2024 06/08/2025 Activelatanoprost Opth 0.005% Richelle (3 sources)Start: 15-72-5149qdzmxbkptpk Opth 0.005% Richelle Refill(s) 0 Start Date: 02/25/20 Status: Orderedlosartan potassium 50 mg oral tablet (20 sources)Angiotensin 2 Receptor BlockerStart: 09-29-2021 End: 50-47-7698lfdu 1 tablet by mouth once dailylosartan (Cozaar) 50 MG tablet Indications: Essential hypertension Take 1 tablet (50 mg) by mouth Daily 90 tablet 1 03/19/2025 09/15/2025 ActiveStart: 03-08-1075lvthhqnd 100 mg Tab Refills(s) 0 Start Date: 02/25/20 Status: Ordered Repeat number: 1take 2 tablets by mouth once dailylosartan (COZAAR) 25 MG tablet Take 50 mg by mouth daily 0 Activemetoprolol tartrate 100 mg oral tablet (20 sources)beta-Adrenergic BlockerStart: 10-12-2023 End: 41-17-5282fwmi 1 tablet by mouth once daily in [...] Date: 06/20/23 Status: Ordered Repeat number: 1Start: 44-12-4330LCTLRWOJQO TARTRATE 100 MG TAB METOPROLOL TARTRATE 100 MG TAB Start Date: 06/20/23 Status: OrderedStart: 04-20-2023 End: 15-21-1936xrvm 1.5 tablets by mouth every twenty-four hours in the morning metoprolol succinate XL (Toprol XL) 100 MG 24 hr tablet Indications: Atherosclerosis of [place] coronary artery of [place] heart without angina pectoris (CMS/HCC) Take 1.5 [...] solution (11 sources)Rho Kinase InhibitorStart: 07-21-2021 End: 63-27-9265eoea 1 drop(s) into the eye(s) once dailyRHOPRESSA 0.02 % SOLN PLACE 1 DROP INTO LEFT EYE EVERYDAY 07/21/2021 Activeniacin 500 mg oral tablet (15 sources)Nicotinic AcidStart: 04-19-2023 End: 23-75-4371sgtq 2 tablets by mouth in the eveningniacin 500 MG tablet Indications: Mixed hyperlipidemia (CMS/HCC) Take 2 tablets (1,000 mg) by mouthin the evening. 180 tablet 04/19/2023 04/18/2024 Activetake 1 tablet by mouth once dailyniacin 500 MG tablet Take 1 tablet by mouth daily Activetake 1 tablet by mouth twice dailyniacin 500 MG tablet Take 500 mg by mouth 2 times daily 0 Kvekth86 hr oxybutynin chloride 10 mg extended release oral tablet (20 sources)Cholinergic Muscarinic AntagonistStart: 67-68-9181qxog 1 tablet by mouth once dailyoxybutynin XL (Ditropan-XL) 10 MG 24 hr tablet Take 10 mg by mouth Daily 02/25/2025 ActiveStart: 84-86-0299kybj 1 tablet by mouth once daily oxybutynin 10 mg ER Tab 10 mg = 1 tab(s), Oral, Daily, # 90 tab(s), Refills(s) 3, Pharmacy: [facility]/pharmacy #[id number], 198, cm, 02/08/25 8:10:00 EDT, Height/Length Dosing, 161.5, kg, 02/08/25 8:10:00 EDT, Weight Dosing Start Date: 02/08/25 Status: Ordered Quantity: 90.0 Unit: tab(s) Repeat number: 4 Indications: Overactive bladder;Start: 09-08-2017 End: 63-84-2552pgsgrhtqdv XL (Ditropan-XL) 5 MG 24 hr tablet 09/08/2017 03/19/2025 Discontinued (Med list cleanup)Start: 66-17-8377jfwr 1 tablet by mouth once dailyoxybutynin XL (Ditropan-XL) 5 MG 24 hr tablet oxybutynin chloride ER 5 mg tablet,extended release 24 hr TAKE 1 TABLET BY MOUTH EVERY DAY 09/08/2017 Activepioglitazone 30 mg oral tablet (20 sources)Peroxisome Proliferator Receptor alpha Agonist, Peroxisome Proliferator Receptor gamma Agonist, ThiazolidinedioneStart: 04-19-2023 End: 61-95-3507yxoj 1 tablet by mouth in the morningpioglitazone [...] mg oral tablet (20 sources)HMG-CoA Reductase InhibitorStart: 18-81-0861kvthyzqrono 40 mg Tab Refills(s) 0 Start Date: 02/25/20 Status: Orderedtake 2 tablets by mouth once dailypravastatin (PRAVACHOL) 20 MG tablet Take 40 mg by mouth daily. 0 Active sucralfate 1000 mg oral tablet (15 sources)Aluminum ComplexStart: 32-62-1388uxupbfgmdc 1 g Tab Refills(s) 0 Start Date: 12/05/23 Status: Ordered Repeat number: 1Start: 10-12-2023 End: 33-82-9586siqigiagvo (Carafate) 1 g tablet Indications: RUQ pain Dissolve 1 tablet in 2 oz water. Take 30 minutes before meals 3 times daily and at bedtime 120 tablet 10/12/2023 03/27/2024 Discontinued (Therapy completed)tamsulosin hydrochloride 0.4 mg oral capsule (20 sources)alpha-Adrenergic BlockerStart: 20-82-2540kuql 1 capsule by mouth twice dailytamsulosin 0.4 mg Cap 0.4 mg = 1 cap(s), Oral, BID, # 180 cap(s), Refills(s) 3, Pharmacy: [facility]/pharmacy #[id number], 198, cm, 05/21/24 10:59:00 EST, Height/Length Dosing, 160, kg, 05/21/24 10:59:00 EST, Weight Dosing Start Date: 07/16/24 Status: Ordered Quantity: 180.0 Unit: cap(s) Repeat number: 4Start: 18-90-0233mige 1 capsule by mouth twice dailytamsulosin 0.4 mg Cap 0.4 mg = 1 cap(s), Oral, BID, # 180 cap(s), Refills(s) 3, Pharmacy: [facility]/pharmacy #[id number], 198, patti, 12/05/23 10:49:00 EDT, Height/Length Dosing, 150.3, kg, 12/05/23 10:49:00 EDT, Weight Dosing Start Date: 01/11/24 Status: OrderedStart: 06-18-2022 take 1 capsule by mouth once dailytamsulosin 0.4 mg Cap 0.4 mg = 1 cap(s), Oral, Daily, # 90 cap(s), Refills(s) 3, Pharmacy: [facility]/pharmacy #[id number], 198, patti, 11/05/22 10:14:00 EDT, Height/Length [...] 200 mg/ml injection (20 sources)AndrogenStart: 07-12-2017 End: 57-21-3001yyihwaxdzycy cypionate (DEPOTESTOTERONE CYPIONATE) 200 MG/ML injection Inject 1 mL into the muscle.Once a month 4 07/12/2017 Active testosterone cypionate 200 mg/mL IM Richelle (20 sources)Start: 27-83-2241gczhdvabokbp cypionate 200 mg/mL IM Richelle 400 mg, IntraMuscular, q4wk, # 10 mL, Refills(s) 1, Pharmacy: [facility]/pharmacy #[id number], 198, patti, 12/05/23 10:49:00 EDT, Height/Length Dosing, 150.3, kg, 12/05/23 10:49:00 EDT, Weight Dosing Start Date: 03/27/24 Status: OrderedStart: 01-03-2024 testosterone cypionate 200 mg/mL IM Richelle 400 mg, IntraMuscular, q4wk, # 10 mL, Refills(s) 1, Pharmacy: [facility]/pharmacy #[id number], 198, patti, 12/05/23 10:49:00 EDT, Height/Length Dosing, 150.3, kg, 12/05/23 10:49:00 EDT, Weight Dosing Start Date: 01/03/24 Status: OrderedStart: 24-63-9074wulqtfpciece cypionate 200 mg/mL IM Richelle 450 mg, IntraMuscular, q4wk, # 10 mL, Refills(s) 1, Pharmacy: [facility]/pharmacy #[id number], 198, cm, 06/20/23 11:05:00 EST, Height/Length Dosing, 149, kg, 06/20/23 11:05:00 EST, Weight Dosing Start Date: 06/20/23 Status: Ordered Start: 40-76-5215qebvpzrvckzp cypionate 200 mg/mL IM Richelle 400 mg, IntraMuscular, q4wk, # 10 mL, Refills(s) 1, Pharmacy: [facility]/pharmacy #[id number], 198, cm, 11/05/22 10:14:00 EDT, Height/Length Dosing, 150, kg, 11/05/22 10:14:00 EDT, Weight Dosing Start Date: 05/09/23 Status: OrderedStart: 72-49-7037apoijmvroxzj cypionate 200 mg/mL IM Richelle 400 mg, IntraMuscular, q4wk, # 10 mL, Refills(s) 2, Pharmacy: [facility]/pharmacy #[id number], 198, cm, 11/05/22 10:14:00 EDT, Height/Length Dosing, 150, kg, 11/05/22 10:14:00 EDT, Weight Dosing Start Date: 02/08/23 Status: OrderedStart: 72-62-4987imlsuojhclgy cypionate 200 mg/mL IM Richelle 400 mg, IntraMuscular, q4wk, # 10 mL, Refills(s) 2, Pharmacy: [facility]/pharmacy #[id number], 198, cm, 06/18/22 9:10:00 EST, Height/Length Dosing, 164, kg, 06/18/22 9:10:00 EST, Weight Dosing Start Date: 08/27/22 Status: Orderedtestosterone cypionate 200 mg/mL intramuscular solution (17 sources)Start: 81-78-9394taoewmtlflbn cypionate 200 mg/mL intramuscular solution 400 mg = 2 mL, IntraMuscular, q4wk, 400mg once a month, # 10 mL, Refills(s) 3, [id number], cm, 02/01/22 9:53:00 EDT, Heig ht/Length Dosing, 166, kg, 02/01/22 9:53:00 EDT, Weight Dosing Start Date: 02/01/22 Status: OrderedStart: 80-75-9850vqgkekntojoo cypionate 200 mg/mL intramuscular solution 350 mg, IntraMuscular, q4wk, # 10 mL, Refills(s) 1, [id number], cm, 08/03/21 14:37:00 EST, Height/Length Dosing, 166, kg, 08/03/21 14:37:00 EST, Weight Dosing Start Date: 11/23/21 Status: OrderedStart: 70-92-9954tlzsevngolrd cypionate 200 mg/mL intramuscular solution 350 mg, IntraMuscular, q4wk, # 10 mL, Refills(s) 1, [id number], cm, 08/03/21 14:37:00 EST, Height/Length Dosing, 166, kg, 08/03/21 14:37:00 EST, Weight Dosing Start Date: 08/03/21 Status: Qbanvjw47 hr timolol 5 mg/ml ophthalmic solution (20 sources)beta-Adrenergic BlockerStart: 05-13-9111dubv 1 drop(s) into the eye(s) in the morningtimolol (Timoptic) 0.5 % ophthalmic solution Administer 1 drop into both eyes in the morning and 1 drop before bedtime. 05/31/2024 Active Start: 08-69-8237bxqgn 1 drop(s) into the eye(s) once dailytimolol (TIMOPTIC-XE) 0.5 % ophthalmic gel-forming Place 1 drop into both eyes daily 3 05/23/2014 Ac tive End: 88-41-3566oofm 1 drop(s) into the eye(s) at bedtimetimolol (Timoptic) 0.25 % ophthalmic solution Administer 1 drop into both eyes at bedtime 07/25/2024 Discontinued (Therapy completed) Completed/Discontinued Medications MedicationDrug Class(es)DatesSig (Normalized)Sig (Original)B Complex Vitamins (VITAMIN B COMPLEX PO) (20 sources) End: 55-50-8527pwzm 1 tablet by mouth in the morningB [...] mouth. 0 ActiveFish Oils (1 source) End: 50-39-1042WCTO OIL by Does not apply route daily 0 01/12/2019 Discontinued (Therapy completed)latanoprost 0.05 mg/ml ophthalmic solution (20 sources)Prostaglandin AnalogStart: 67-36-6737uuskkpveqhr Opth 0.005% Richelle Refill(s) 0 Start Date: 02/25/20 Status: Ordered Repeat number: 1Start: 64-83-5693vwvzgalfntd (Xalatan) 0.005 % ophthalmic solution 07/27/2018 Active Start: 22-22-6439relj 1 drop(s) into the eye(s) at bedtimelatanoprost (Xalatan) 0.005 % ophthalmic solution INSTILL 1 DROP INTO BOTH EYES AT BEDTIME Ophthalmic for 90 Days 07/27/2018 ActiveStart: 10-44-3243ejze 1 drop(s) into the eye(s) once daily in the eveninglatanoprost (XALATAN) 0.005 % ophthalmic solution INSTILL 1 DROP INTO AFFECTED EYE(S) BY OPHTHALMICROUTE ONCE DAILY IN THE EVENING 2 07/27/2018 Active Problems Active Problems Problem ClassificationProblemDateDocumented DateEpisodic/ChronicAbdominal pain (6 sources)Indigestion; Translations: [Epigastric pain]39-92-6363Xrqjbrrf Acquired foot deformities (20 sources)Hallux rigidus, right foot; Translations: [Acquired hallux malleus] Onset: 05-03-2022 Resolved: 239495-58-0317JwyptxqBpwnrviw foot deformities (3 sources)Other hammer toe(s) (acquired), left foot; Translations: [Acquired hallux malleus of left great toe]Onset: 574456-90-6402SxqvpmmIclrj myocardial infarction (20 sources)Myocardial xeyogzylbz82-19-0988UxvjnpvEombxe of rectum and anus (7 sources)Malignant tumor of anus; Translations: [Malignant neoplasm of anus, unspecified]Onset: 273543-45-2042FvhnnatAozgtea kidney disease (20 sources)Chronic kidney disease stage 2; Translations: [Chronic kidney disease, stage 2 (mild)]Onset: 11-15-2019 Resolved: 998479-31-1014JqocskpOikmblwf atherosclerosis and other heart disease (20 sources)Coronary arteriosclerosis; Translations: [Atherosclerotic heart disease of [place] coronary artery without angina pectoris]Onset: 04-08-2017 Resolved: 230429-91-1617JnasjiuVdhccpgm mellitus with complications (20 sources)Diabetic peripheral neuropathy; Translations: [Type 2 diabetes mellitus with diabetic polyneuropathy]Onset: 08-04-2016 Resolved: 525933-57-0132VajchhsNtrzkrga mellitus without complication (20 sources)Type 2 diabetes mellitus; Translations: [Type 2 diabetes mellitus with other diabetic neurological complication]Onset: 08-04-2016 Resolved: 463570-69-7084McvylcxQeiurzruj of lipid metabolism (20 sources)Hyperlipidemia; Translations: [Hyperlipidemia, unspecified]Onset: 569283-20-7469ApyztftIdamzlnuf hypertension (20 sources)Hypertensive disorder; Translations: [Essential (primary) hypertension]Onset: 830680-79-5762PtxexdyBzjjubov (20 sources)Open-angle glaucoma; Translations: [Unspecified open-angle glaucoma, stage unspecified]Onset: 01-11-2023 Resolved: 329145-93-7420LpgotxbVpbeyuucnye of prostate (20 sources)Benign prostatic hypertrophy with outflow obstruction; Translations: [Benign prostatic hyperplasia with lower urinary tract symptoms]Onset: 894456-30-2824PgwtnbyBotniez (6 sources)Tinea unguium; Translations: [Onychomycosis due to dermatophyte ] Onset: 69-72-3046KlwmuqibPdry wounds of extremities (20 sources)Amputated foot; Translations: [Complete traumatic amputation of unspecified foot, level unspecified, initial encounter]Onset: 09-11-2020 52-13-6343MaiobptMchwxaxqcdpznr (20 sources)Osteoarthritis of knee; Translations: [Osteoarthritis of knee, unspecified]Onset: 02-25-2021 Resolved: 344903-78-4336SrtkmidGnfnn aftercare (1 source)care home (current) use of anticoagulants; Translations: [DATA CENTER ENGINEER CURRNT USE ANTICOAGULANTS]Onset: 02-89-8767JtjqygxzZteas aftercare (1 source)care home (current) use of aspirin; Translations: [DATA CENTER ENGINEER CURRENT USE OF ASPIRIN]Onset: 26-37-5944JtdzzsuzTuhka aftercare (1 source)termite control service representative (current) use of oral hypoglycemic drugs; Translations: [DATA CENTER ENGINEER USE ORAL HYPOGLYCEMIC DX]Onset: 83-12-7407DxcwnlkhYjvqz aftercare (1 source)Other intermission coordinator (current) drug therapy; Translations: [OTH DATA CENTER ENGINEER CURRENT DRUG THERAPY]Onset: 80-96-2346KtuctggtLqbue circulatory disease (1 source)Other specified peripheral vascular diseases; Translations: [OTH SPEC PERIPHERAL VASC DISEASES]Onset: 99-66-0843IycwulsOnsol connective tissue disease (1 source)Presence of artificial knee joint, bilateral; Translations: [PRESENCE ARTIFICIAL KNEE JNT BILAT]Onset: 55-95-3360MkiowbeFmplg connective tissue disease (20 sources)Artificial knee joint present; Translations: [Presence of artificial knee joint, bilateral]Onset: 106372-40-9469XhxwjkrOyarp diseases of bladder and urethra (2 sources)Detrusor overactivity; Translations: [Overactive bladder]Onset: 01-05-0959KdvdatiNyidz diseases of bladder and urethra (20 sources)Overactive bladder; Translations: [Overactive bladder]Onset: 399222-67-1471FedydwwBwyqj diseases of veins and lymphatics (2 sources)Disorder of vein of lower extremity; Translations: [Venous insufficiency (chronic) (peripheral)]44-11-2864IzfwcnrbBbgmc endocrine disorders (20 sources)Disorder of pituitary gland; Translations: [Disorder of pituitary gland, unspecified]Onset: 37-11-3963XuinrhsQckqm endocrine disorders (20 sources)Jlbdkrjnaaxw59-54-0866XyyxzqjCnnzv endocrine disorders (20 sources)Male hypogonadism; Translations: [Testicular hypofunction]Onset: 228473-62-4851CkarbtfDdyut endocrine disorders (8 sources)Testicular hypofunction; Translations: [Testicular hypofunction] Onset: 21-52-9908NwvceyoIaqbw endocrine disorders (1 source)Testicular hypofunction; Translations: [TESTICULAR HYPOFUNCTION]Onset: 46-23-1819PezztqeNzxnm gastrointestinal disorders (20 sources)H/O: liver sykvzar47-58-3341ClzvymdhEvsaj liver diseases (20 sources)Steatosis of liver; Translations: [Fatty (change of) liver, not elsewhere classified]Onset: 446451-74-8143ZdzuyuoHydav male genital disorders (20 sources)Qqwpkkzal14-18-3185TdmlyacHwbtt male genital disorders (5 sources)Phimosis; Translations: [PHIMOSIS]Onset: 53-74-4137AlfzubbgJbixq nervous system disorders (20 sources)Chronic pain; Translations: [Other chronic pain]Onset: 12-25-2020 Resolved: 440590-69-4345PwybnseYguqp nutritional; endocrine; and metabolic disorders (20 sources)Morbid obesity; Translations: [Morbid (severe) obesity due to excess calories]Onset: 081580-55-2901LtmxrzpYetwk nutritional; endocrine; and metabolic disorders (2 sources)Obesity caused by energy imbalance; Translations: [Morbid (severe) obesity due to excess calories]02-33-2503WhqlqvhMcblg nutritional; endocrine; and metabolic disorders (2 sources)Body mass index 30+ - obesity; Translations: [Body mass index (BMI) 39.0-39.9, adult]94-71-0705GhtdkuhHefmg skin disorders (1 source)Dystrophia unguium; Translations: [Nail dystrophy]38-41-9270Zxfahdjq Other skin disorders (5 sources)Acquired keratoderma; Translations: [Acquired keratosis [keratoderma] palmaris et plantaris]82-77-3045AssxlkaeGobxvooy codes; unclassified (20 sources)Obstructive sleep apnea syndrome; Translations: [Obstructive sleep apnea (adult) (pediatric)]Onset: 645148-99-4140KwwibxlNiwxmnvq codes; unclassified (20 sources)Sleep -21-7483CfqrfltDgvjhivb codes; unclassified (1 source)Sleep apnea, unspecified; Translations: [SLEEP APNEA UNSPECIFIED] Onset: 65-74-4719AulnfddOxjhmacs codes; unclassified (20 sources)Dependence on enabling machine or device; Translations: [Dependence on other enabling machines and devices]Onset: hronic Residual codes; unclassified (2 sources)Obstructive sleep apnea (adult) (pediatric); Translations: [Obstructive sleep apnea (adult) (pediatric)]Onset: 33-47-3025AptysizZnsnwtko codes; unclassified (1 source)Family history of malignant neoplasm of digestive organs; Translations: [FAM HX MALIG NEOPLASM DIGESTIV ORGN]Onset: 24-84-1052Qeqygdpc Residual codes; unclassified (2 sources)Active advance directive (copy within chart) ; Translations: [Other specified health status]04-12-6974QaloncbqLiojyttxqrq; intervertebral disc disorders; other back problems (2 sources)Spasm of muscle of lower back; Translations: [Muscle spasm of back] 82-36-8873EqolrirxMjkwligesrx injury; contusion (6 sources)Blister (nonthermal), left foot, initial encounter; Translations: [Blister (nonthermal), right foot, sequela]Onset: 44-76-0826NpguwkttDwoprlramqqw (3 sources)History of cardiac catheterization; Translations: [S/P cardiac cath] Onset: 804787-89-5540Forpmeiqrulc (3 sources)CONTACT W/AND (SUSP) EXPOS COVID-19; Translations: [CONTACT W/AND (SUSP) EXPOS COVID-19]Onset: 01-19-2022 Past or Other Problems Problem ClassificationProblemDateDocumented DateEpisodic/ChronicAcquired foot deformities (2 sources)Flat foot [pes planus] (acquired), unspecified foot; Translations: [Other acquired deformities of left foot]Onset: 27-71-3083ZpnyilssHjcvqp of colon (20 sources)History of malignant neoplasm of colon; Translations: [Personal history of other malignant neoplasmof large intestine]Onset: 10-12-2022 45-95-8892HjdbkzdfIbidfoy ulcer of skin (20 sources)Non-pressure chronic ulcer of other part of right foot with fat layer exposed; Translations: [Non-pressure chronic ulcer of left heel and midfoot limited to breakdown of skin]Onset: 01-13-2022 Resolved: 496111-05-6798UoctbesSrnmjpwk atherosclerosis and other heart disease (6 sources)History of placement of stent for coronary artery disease; Translations: [Presence of coronary angioplasty implant and graft]Onset: 132060-97-5315TpemvduxG Codes: Adverse effects of medical drugs (20 sources)HMG COA reductase inhibitor adverse reaction; Translations: [Adverse effect of antihyperlipidemic and antiarteriosclerotic drugs, initial encounter] Onset: 758831-29-7300OwzqeqrhHbcfobpopgjey symptoms and ill-defined conditions (20 sources)Increased frequency of urination; Translations: [Nocturia]Onset: 11-15-2019 Resolved: 326240-65-0128PvvwxmohHnslppuuv arthritis and osteomyelitis (except that caused by tuberculosis or sexually transmitted disease) (20 sources)Acute osteomyelitis of metatarsal; Translations: [Other acute osteomyelitis, right ankle and foot]Onset: 08-05-2016 Resolved: 501464-14-8239OfrcwdpWkpml disorders and dislocations; trauma-related (20 sources)Derangement of left knee; Translations: [Unspecified internal derangement of left knee]Onset: 01-23-2021 Resolved: 000414-40-3372DwhtpggPtyyxbx and fatigue (2 sources)Other fatigue; Translations: [Other fatigue]Onset: 09-73-1991Qhiykyvu Mood disorders (20 sources)Mood disordersOnset: 05-17-2023 Resolved: 207945-35-4340Kvtrj connective tissue disease (20 sources)History of total knee arthroplasty; Translations: [Presence of left artificial knee joint]Onset: 06-03-2021 Resolved: 646705-18-6253NketjahTydqm connective tissue disease (1 source)Pain in left foot; Translations: [PAIN IN LEFT FOOT]Onset: 05-25-2022 EpisodicOther connective tissue disease (1 source)Plantar fascial fibromatosis; Translations: [PLANTAR FASCIAL FIBROMATOSIS]Onset: 92-28-3649EsnybudeRbkbi connective tissue disease (4 sources)Pain in right foot; Translations: [PAIN IN RIGHT FOOT]Onset: 94-03-6752ZuovuxlaJfmzy endocrine disorders (20 sources)Hypotestosteronism; Translations: [Endocrine disorder, unspecified] Onset: 874178-81-7706OjpywcumLwxku gastrointestinal disorders (20 sources)Chronic constipation; Translations: [Other constipation]Onset: 515603-30-5624SftrfqzpZuged hematologic conditions (20 sources)Erythrocytosis; 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]Onset: 318462-56-9937ZcubhnikQrhln hematologic conditions (1 source)Secondary polycythemia; 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]Onset: 86-03-7822FumkinaoJxkic lower respiratory disease (1 source)Other specified respiratory disorders; Translations: [OTHER SPEC RESPIRATORY DISORDERS]Onset: 89-33-1165LmszgdolFenxk male genital disorders (20 sources)Phimosis; Translations: [Phimosis]Onset: 05-17-2022 Resolved: 03-48-6574DifxdeagZyioi nervous system disorders (20 sources)Difficulty walking; Translations: [Difficulty in walking, not elsewhere classified]Onset: 05-26-2021 Resolved: 701461-82-0837TcjibpcIkepg nervous system disorders (20 sources)Drug-induced myopathy; Translations: [Drug-induced myopathy]Onset: 787415-70-6286PzhpckiyUrtvs screening for suspected conditions (not mental disorders or infectious disease) (20 sources)Patient encounter status; Translations: [Encounter for screening for malignant neoplasm of colon]Onset: 02-12-2014 Resolved: 262901-02-3338FkfvwazyDuueu skin disorders (1 source)Nail dystrophy; Translations: [NAIL DYSTROPHY]Onset: 05-25-2022 EpisodicOther skin disorders (5 sources)Corns and callosities; Translations: [CORNS AND CALLOSITIES]Onset: 49-72-5731OwnvomekLujxf skin disorders (20 sources)Foot callus; Translations: [Corns and callosities]Onset: 09-23-2020 13-13-1714CexyezwcErnizian codes; unclassified (20 sources)History of cardiac catheterization; Translations: [Other specified postprocedural states]Onset: 05-13-2014 Resolved: 440206-98-4972RpjqfmbfLnncbihj codes; unclassified (20 sources)H/O: anticoagulant therapy; Translations: [Personal history of other drug therapy]Onset: 188444-65-1662QlwovhggZgkvsbwa codes; unclassified (1 source)Pain, unspecified; Translations: [PAIN UNSPECIFIED]Onset: 01-19-2022 EpisodicResidual codes; unclassified (2 sources)Other specified health status; Translations: [Other specified health status]Onset: 97-32-7806IjtfpavnAyqpuhbnn and history of mental health and substance abuse codes (20 sources)Ex-smoker; Translations: [Personal history of nicotine dependence] Onset: 380534-82-5011KwxwnaayFccp and subcutaneous tissue infections (20 sources)Cellulitis and abscess of toe; Translations: [Cellulitis of right toe]Onset: 08-04-2016 Resolved: 811388-50-5983FofwsjmfEenxxgcehbsy (3 sources)Patient encounter status; Translations: [Screening for colorectal cancer]Onset: 02-12-2014 Resolved: 835536-52-4720Alskpsqdqlgq (1 source)CONTACT W/AND (SUSP) EXPOS COVID-19; Translations: [...] children.Performed By: #### 496 #### [facility] [address] [facility], [address] [place] [address] Counselor Supervisor: Toan Lara [facility] W/AUTO DIFFon 43-43-1912JPL IMMATURE GRAN 0.08 K/uLHigh0.00-0.06Pathology Laboratories IncComment on above:Result Comment: UNLESS OTHERWISE INDICATED, ALL TESTING PERFORMED AT: [employer] [address] [place] [address] [employer] CONSULTANT: JONI NI M.D. CLIA NUMBER [id number] CAP ACCREDITATION AUID [id number] NEUTROPHILS3.85 K/uL Normal1.9-8.0Pathology Laboratories IncBasophils (Bld) [#/Vol]0.05 10*3/uLNormal 0.0-0.2Pathology Laboratories IncBasophils/100 WBC (Bld)0.7 %Normal0-2Pathology Laboratories IncEosinophils (Bld) [#/Vol]0.47 10*3/uLNormal0.0-0.80Pathology Laboratories IncEosinophils/100 WBC (Bld)7.0 %High0-5[facility] Erythrocyte distribution width (RBC) [Ratio]13.5 %Xogswb55.2-14.8Pathology Laboratories IncHematocrit (Bld) [Volume fraction]40.4 %Rnigvb00-64Jvomcmplc Laboratories IncHemoglobin (Bld) [Mass/Vol]13.5 g/mHYkwpbv31.0-18.0Pathology Laboratories IncIMMATURE GRAN1.2 %Normal0-2Pathology Laboratories IncLymphocytes (Bld) [#/Vol]1.41 10*3/uLNormal0.9-5.2Pathology Laboratories IncLymphocytes/100 WBC (Bld)21.0 %Vyfwzh57-68Seiynhzaf Laboratories IncMCH (RBC) [Entitic mass] 32.8 qgLlln71.0-32.0Pathology Laboratories IncMCHC (RBC) [Mass/Vol]33.4 g/dL Rbvwuy31.0-36.0Pathology Laboratories IncMCV (RBC) [Entitic vol]98 fLNormal 75-100Pathology Laboratories IncMonocytes (Bld) [#/Vol]0.85 10*3/uLNormal0.1-1.0 Pathology Laboratories IncMonocytes/100 WBC (Bld)12.7 %Normal0-13Pathology Laboratories IncNeutrophils/100 WBC (Bld)57.4 %Ekifdj11-37Cjzzsfykn Laboratories KieCOEGTLXR968 THOUS/KTMEpg995-263Euujratgx Laboratories IncRBC4.11 MILL/CMMLow 4.40-6.10Pathology Laboratories IncWBC6.7 THDS/CMMNormal3.6-11.0Pathology Laboratories IncUrology Office/Clinic Noteon 59-48-5446Dskwbqp Office/Clinic NoteUrology Office/Clinic Note Chief Complaint pt [...] frequency *oxybutin, flomax needs refills sent [facility] IPSS: 8 History of Present Illness Tests [...] was declined from donating blood to the [facility] and had to get an order from oncology). 01/14/25 - Hgb 13.4, Hct 39.4 Stopped Testosterone IM 400 mg q4wk at prior OV due to high hgb. T level decreased, as expected. Hgb improved since being off TRT despite pt never donating blood. Shares he can have units of blood taken in [place]. Does have to get a phlebotomy order [...] 10 mg qd. New rx sent to [facility]. Call if emptying becomes difficult. -F/u in [...] Contact Information KERI NOLASCO, Topher Ordoñez, URL [address] [place] [address] [place] [address] Additional Instructions: 6 mos Patient Education Benign [...] PSA History of colon cancer Hx of custodial use of blood thinners Hyperlipidemia Hypertension Hypogonadism [...] Oral EC Tab glipiZI (more content not included)...[facility] CenterComment on above:Result Comment: Electronically Signed By: Topher SAAVEDRA MD\.br\Date and Time Signed: 02/08/25 08:55 EDT\.br\Electronically Co-Signed By: Erica Marin\.br\Date and Time Co-Signed: 02/08/25 08:53 EDTALL CBC WITH AUTO DIFFon 34-56-8975NUWJJZLCO ABSOLUTE JGWK1NCPH HealthcareBasophils/100 WBC (Bld)0.4 %0.2 - 2.0 %NOMMercy Hospital St. John'SEosinophils/100 WBC (Bld)6.7 %0.9 - 7.0 %[facility] Erythrocyte distribution width (RBC) [Ratio]13.2 %11.0 - 15.0 %[facility] Hematocrit (Bld) [Volume fraction]39.4 %Low42.0 - 54.0 %[facility] Hemoglobin (Bld) [Mass/Vol]13.4 g/dLLow14.0 - 18.0 g/dLCox MonettIMMATURE GRANULOCYTES ABS AUTO0.03NOMetropolitan Saint Louis Psychiatric CenterImmature granulocytes/100 WBC (Bld)0.4 % 0.0 - 0.5 %[facility]ettInterpretation and review of laboratory results AbnormalNOMetropolitan Saint Louis Psychiatric CenterLYMPHOCYTES ABSOLUTE AUTO1.3NOMS [facility] Lymphocytes/100 WBC (Bld)17.1 %Low20.5 - 60.0 %[facility] Psychiatric CenterH (RBC) [Entitic mass]32.4 pg25.9 - 34.0 pgMetropolitan Saint Louis Psychiatric CenterHC (RBC) [Mass/Vol]34 g/dL29.9 - 35.2 g/dLMetropolitan Saint Louis Psychiatric CenterV (RBC) [Entitic vol]95.4 uUCqdv74.0 - 94.0 fLCox MonettMONOCYTES ABSOLUTE MFCP3StskSXZZ HealthcareMonocytes/100 WBC (Bld)13.4 %High1.7 - 12.0 %[facility]ettNEUTROPHILS ABSOLUTE AUTO4.5NOMetropolitan Saint Louis Psychiatric Center Neutrophils/100 WBC (Bld)62 %43.0 - 75.0 %[facility]ettPlatelet mean volume (Bld) [Entitic vol]12.4 fL9.5 - 13.5 fLNOExcelsior Springs Medical Center EO #0.5NOMS Healthcare TB HTF695LdzEBFV HealthcareTB RBC4.13LowNOMS HealthcareTB WBC7.3NOMS HealthcareCLINISYNCNOMS Zuasfljfru71ii 27-32-566210UyasopMD Maria G Peralta MA Blood testing ok, continue leqvio. Advised patient of Dr. Huddleston's findings. Patient verbalized understanding and agreed with plan of care.[facility] 01-01-2025 Specimen: [id number] Received: 01/02/25 Status: PATRICIA Stevo Num: [id number] Spec Type: Surgical Subm Dr: Enedina Hargrove DPM, MS Tissues: A DIGIT AMPUTATION (RIGHT FIFTH TOE) Procedures: HE/3, Gross/Micro L4, Decalcification Age/ Patient Sex Location Account Attending Physician Juan Miguel Jennings 74/M LABEL [id number] Enedina Hargrove DPM, MS SPEC NUM: [id number] RECD: 01/02/25 STATUS: PATRICIA ZHU NUM: [id number] JUANA: 01/01/[address] [facility] [address]: Enedina Hargrove,DPM, MS ENTERED: 01/02/[address]: Christal,Lab SPEC TYPE: Surgical DEPT: RADHA MILNER ENTERED BY: [id number] RECV BY: [id number] ORDERED: HE/3, Gross/Micro L4, Decalcification ORDERED: HE/3, [...] skin margin submitted in A3. (3, , [id number] A) Microscopic Description Microscopic examination is performed. Specimen: [id number] Received: 01/02/25 Status: PATRICIA Stevo Num: [id number] Spec Type: Surgical Subm Dr: Enedina Hargrove DPM, MS Tissues: A DIGIT AMPUTATION (RIGHT FIFTH TOE) Procedures: JUVENAL/Aidan, Gross/Micro L4, Decalcification Patient: Juan Miguel Jennings [id number] (Continued) Specimen: [id number] Received: 01/02/25 (Continued) Signed (signature on file) Christiano Lombardi MD 01/07/25 0938 Specimen: [id number] Received: 01/02/25 Status: PATRICIA Zhu Num: [id number] Spec Type: Surgical Subm Dr: Enedina Hargrove DPM, MS Tissues: A DIGIT AMPUTATION (RIGHT FIFTH TOE) Procedures: JUVENAL3, Gross/Micro L4, Decalcification Patient: Juan Miguel Jennings [id number] (Continued) Specimen: [id number] Received: 01/02/25 (Continued) CPT Codes 92879, 96810 Specimen: [id number] Received: 01/02/25 Status: PATRICIA Zhu Num: [id number] Spec Type: Surgical Subm Dr: Enedina Hargrove,KATLIN, MS Tissues: A DIGIT AMPUTATION (RIGHT FIFTH TOE) Procedures: HE/3, Gross/Micro L4, Decalcification Patient: Juan Miguel Jennings [id number] ([facility]) Signed (signature on file) Christiano Lombardi MD 01/07/25 0938NoRutherford Regional [facility] Physician [facility] CenterXR FOOT RT MIN 3Von 40-21-9639OmlCentral [place] [address] XRay Report Signed Patient: JUAN MIGUEL JENNINGS MR#: [id number] : 1950 Acct:[id number] Age/Sex: 74 / M ADM Date: 01/01/25 Loc: [facility] Attending Dr: Enedina Hargrove D.P.M. Ordering Physician: Enedina Hargrove D.P.M. Date of Service: 01/01/25 Procedure(s): XR foot RT min 3V Accession Number(s): [id number] cc: JORDAN DUNCAN ; Enedina Hargrove D.P.M. [place] [id number] Patient Name: JUAN MIGUEL JENNINGS MRN: [id number] date: 1950 Sex: M Assigned Patient Location: [facility] Current Patient Location: Accession/Order Number: [id number] Exam Date: 01/01/2025 15:03 Report Date: 01/01/2025 [...] Jr., D.O. 01/01/2025 3:04 PM Dictation Location: [place] [address] Electronically authenticated by: [id number] Y Date: 01/01/2025 15:04 Dictated By: John Pike M.D. Signed By: 01/01/25 1506 DD/ 1504 TD/TT: R D Engineer:TBHRadiology, Radiologist, - 01/01/2025 [place] [address] XRay Report Signed Patient: JUAN MIGUEL JENNINGS MR#: [id number] : 1950 Acct:[id number] Age/Sex: 74 / M ADM Date: 01/01/25 Loc: [facility] Attending Dr: Enedina Hargrove D.P.M. Ordering Physician: Enedina Hargrove D.P.M. Date of Service: 01/01/25 Procedure(s): XR foot RT min 3V Accession Number(s): [id number] cc: JORDAN DUNCAN ; Enedina Hargrove D.P.M. The [address] [id number] Patient Name: JUAN MIGUEL JENNINGS MRN: [id number] date: 1950 Sex: M Assigned Patient Location: [facility] Current Patient Location: Accession/Order Number: [id number] Exam Date: 01/01/2025 15:03 Report Date: 01/01/2025 [...] Jr., D.O. 01/01/2025 3:04 PM Dictation Location: [employer] Electronically authenticated by: [id number] Y Date: 01/01/2025 15:04 Dictated By: John Pike M.D. Signed By: 01/01/25 1506 DD/ 1504 TD/TT: R D Engineer: [facility]ettRadiology Study observation (narrative)[facility]ettXR FOOT RT MIN 3VOrdered By: Radiologist Radiology on 46-89-0384SRPACox [facility]ett Work Phone: aLL CBC WITH AUTO DIFFon 36-89-7234LZVEMUCBU ABSOLUTE CILG7UAPJMetropolitan Saint Louis Psychiatric CenterBasophils/100 WBC (Bld)0.6 %0.2 - 2.0 %[facility] Eosinophils/100 WBC (Bld)5.5 %0.9 - 7.0 %[facility] MonettErythrocyte distribution width (RBC) [Ratio]13.2 %11.0 - 15.0 %[facility]ettHematocrit (Bld) [Volume fraction]40.2 %Low42.0 - 54.0 %[facility]ettHemoglobin (Bld) [Mass/Vol]13.8 g/dLLow14.0 - 18.0 g/dLCox MonettIMMATURE GRANULOCYTES ABS AUTO0.03NOMetropolitan Saint Louis Psychiatric CenterImmature granulocytes/100 WBC (Bld)0.4 %0.0 - 0.5 %[facility] Interpretation and review of laboratory resultsAbnormalC[facility] LYMPHOCYTES ABSOLUTE AUTO1.4NOMetropolitan Saint Louis Psychiatric CenterLymphocytes/100 WBC (Bld)19.7 %Low 20.5 - 60.0 %[facility] Psychiatric CenterH (RBC) [Entitic mass]33 pg25.9 - 34.0 pgNOSaint Louis University HospitalHC (RBC) [Mass/Vol]34.3 g/dL29.9 - 35.2 g/dLNOSaint Louis University HospitalV (RBC) [Entitic vol]96.2 rGLfst58.0 - 94.0 fLNODE HealthcareMONOCYTES ABSOLUTE AUTO0.8 NOM HealthcareMonocytes/100 WBC (Bld)11.2 %1.7 - 12.0 %[facility] Healthcare NEUTROPHILS ABSOLUTE AUTO4.4NODE HealthcareNeutrophils/100 WBC (Bld)62.6 %43.0 - 75.0 %[facility] HealthcarePlatelet mean volume (Bld) [Entitic vol]11.9 fL9.5 - 13.5 fLNODE HealthcareTBH EO #0.4NOMS HealthcareTBH ADI029JguULIM HealthcareTB RBC 4.18LowNOMS HealthcareTBH WBC7.1NOMS HealthcareCLINISYNCNOMS HealthcareXR CHEST 2Von 92-96-9392Kru[place] [address] XRay Report Signed Patient: JUAN MIGUEL JENNINGS MR#: [id number] : 1950 Acct:[id number] Age/Sex: 74 / M ADM Date: 12/28/24 Loc: [facility] Attending Dr: Enedina Hargrove D.P.M. Ordering Physician: Enedina Hargrove D.P.M. Date of Service: 12/28/24 Procedure(s): XR chest 2V Accession Number(s): [id number] cc: JORDAN DUNCAN ; Enedina Hargrove D.P.M. [place] [address] Patient Name: JUAN MIGUEL JENNINGS MRN: [id number] date: 1950 Sex: M Assigned Patient Location: [facility] Current Patient Location: SURGOUT Accession/Order Number: [id number] Exam Date: 12/28/2024 15:02 Report Date: 12/28/2024 [...] Palacios M.D. 12/28/2024 3:03 PM Dictation Location: [place] [address] Electronically authenticated by: [id number] Y Date: 12/28/2024 15:03 Dictated By: Tomer Palacios D.O. Signed By: 12/28/24 1506 DD/ 150 TD/TT: R D Engineer:JYOTIHRadiologlupis, Radiologist, MD - 12/28/2024 [place] [address] XRay Report Signed Patient: JUAN MIGUEL JENNINGS MR#: [id number] : 1950 Acct:[id number] Age/Sex: 74 / M ADM Date: 12/28/24 Loc: [facility] Attending Dr: Enedina Hargrove D.P.M. Ordering Physician: Enedina Hargrove D.P.M. Date of Service: 12/28/24 Procedure(s): XR chest 2V Accession Number(s): [id number] cc: JORDAN DUNCAN ; Enedina Hargrove D.P.M. The [place] [id number] Patient Name: JUAN MIGUEL JENNINGS MRN: [id number] date: 1950 Sex: M Assigned Patient Location: [facility] Current Patient Location: [facility] Accession/Order Number: [id number] Exam Date: 12/28/2024 15:02 Report Date: 12/28/2024 [...] Palacios M.D. 12/28/2024 3:03 PM Dictation Location: [place] [address] Electronically authenticated by: [id number] Y Date: 12/28/2024 15:03 Dictated By: Tomer Palacios D.O. Signed By: 12/28/24 1506 DD/ 1503 TD/TT: R D Engineer: [facility] HealthcareRadiology Study observation (narrative)NOMMercy Hospital St. John'SXR CHEST 2V Ordered By: Radiologist Radiology on 87-60-9244CKRJ Healthcare Work Phone: aLL LIPID PROFILE (FASTING)on 85-04-7328XUYC HDL RATIO 4.3NODE HealthcareComment on above:3.3 - 4.4 LOW RISK 4.4 - 7.1 AVERAGE RISK 7.1 - 11.0 MODERATE RISK >11.0 HIGH RISK Cholesterol [Mass/Vol]172 mg/dLNINF - 200 mg/dLCox MonettCholesterol in HDL [Mass/Vol]40 mg/dL40 - 60 mg/dLNODE HealthcareComment on above:> or =60 mg/dl - LOW CARDIOVASCULAR RISK <40 mg/dl - HIGH CARDIOVASCULAR RISK Interpretation and review of laboratory resultsAbnormalNODE HealthcareMagnesium [Mass/Vol]77 mg/dLNODE HealthcareComment on above:<100 mg/dl OPTIMAL 100-129 mg/dl NEAR OR ABOVE OPTIMAL 130-159 mg/dl BORDERLINE HIGH 160-189 mg/dl HIGH >190 mg/dl VERY HIGH Magnesium [Mass/Vol]55.8 mg/dLNODE HealthcareTriglyceride [Mass/Vol]279 mg/dL HighNINF - 150 mg/dLPhelps HealthHP LIVER PANELon 27-98-9272Bvgngcd [Mass/Vol]3.5 g/dL3.4 - 5.0 g/dLNODE HealthcareALBUMIN GLOBULIN PYAJS6TIGF HealthcareALP [Catalytic activity/Vol]77 U/L46 - 116 U/LNOMS HealthcareALT [Catalytic activity/Vol]44 U/L16 - 63 U/LNOMS HealthcareAST [Catalytic activity/Vol]23 U/L15 - 37 U/LNOMS HealthcareBilirubin [Mass/Vol]0.5 mg/dL0.2 - 1.0 mg/dLNOMS HealthcareBilirubin.indirect [Mass/Vol]0.1 mg/dL0.0 - 0.2 mg/dL NOMS HealthcareGlobulin (S) [Mass/Vol]3.6 g/dLNOMS HealthcareProtein [Mass/Vol] 7.1 g/dL6.4 - 8.2 g/dLNOMS HealthcareNo Panel Informationon 00-02-6224NFUIRJYXU NOMS HealthcareOffice Visiton 00-28-2753Xpmcli-up [id number] Juan Miguel Jennings 1950 M Date Provider Department Center 12/21/2024 90128-UQQVWZRACHEL DEY CARD [facility] Family History Problem Relation Age of Onset Heart disease Mother Heart disease Father Family Status - Relation Status Age at Mother Father Level of Service:[address] [place] OFFICE/OUTPATIENT ESTABLISHED MOD MDM 30 [facility] SpringfieldCBC W/AUTO DIFFon 16-21-1020USB IMMATURE GRAN 0.03 K/uLNormal0.00-0.06Pathology Laboratories IncComment on above:Result Comment: UNLESS OTHERWISE INDICATED, ALL TESTING PERFORMED AT: [employer] [address] [place] [address] [employer] CONSULTANT: JONI NI M.D. CLIA NUMBER [id number] CAP ACCREDITATION AUID [id number] NEUTROPHILS3.59 K/uL Normal1.9-8.0Pathology Laboratories IncBasophils (Bld) [#/Vol]0.04 10*3/uLNormal 0.0-0.2Pathology Laboratories IncBasophils/100 WBC (Bld)0.7 %Normal0-2Pathology Laboratories IncEosinophils (Bld) [#/Vol]0.37 10*3/uLNormal0.0-0.80Pathology Laboratories IncEosinophils/100 WBC (Bld)6.2 %High0-5[facility] Erythrocyte distribution width (RBC) [Ratio]13.0 %Eutydx05.2-14.8Pathology Laboratories IncHematocrit (Bld) [Volume fraction]42.1 %Uulphg48-29Jesvfvwjv Laboratories IncHemoglobin (Bld) [Mass/Vol]14.0 g/mPCrjzko82.0-18.0Pathology Laboratories IncIMMATURE GRAN0.5 %Normal0-2Pathology Laboratories IncLymphocytes (Bld) [#/Vol]1.21 10*3/uLNormal0.9-5.2Pathology Laboratories IncLymphocytes/100 WBC (Bld)20.1 %Btreor16-68Lnqgjauco Laboratories IncMCH (RBC) [Entitic mass] 33.7 xsBuwr71.0-32.0Pathology Laboratories IncHC (RBC) [Mass/Vol]33.3 g/dL Evdnca19.0-35.0Pathology Laboratories IncMCV (RBC) [Entitic vol]101 aFAilh61-827 Pathology Laboratories IncMonocytes (Bld) [#/Vol]0.77 10*3/uLNormal0.1-1.0 Pathology Laboratories IncMonocytes/100 WBC (Bld)12.8 %Normal0-13Pathology Laboratories IncNeutrophils/100 WBC (Bld)59.7 %Jgmtpo65-26Zdlmtaxzw Laboratories SqiRCQZPLDG712 THOUS/NVWJwwjcq320-635Kqtqkjfng Laboratories IncRBC4.16 MILL/CMM Low4.40-6.10Pathology Laboratories IncWBC6.0 THDS/CMMNormal3.6-11.0Pathology Laboratories IncLaboratory - Chemistry and Chemistry - challengeon 09-18-2024 Albumin DL <= 20 mg/L (U) [Mass/Vol]150 mg/dLNODE HealthcareAlbumin/Creatinine DL <= 1.0 mg/L (U) [Ratio]300NOMS HealthcareCreatinine (U) [Mass/Vol]50 mg/dL NOMS HealthcareNo Panel Informationon 82-55-7031Tmbfyecgfyemze and review of laboratory resultsAbnoRegency Hospital of Greenville HealthcareCOMPREHENSIVE METABOLIC PANELon 54-05-1874Slmogzz [Mass/Vol]4.3 g/dLNormal3.6-5.1[facility] Comment on above:Performed By: #### 496, 9410 #### [facility] of [address] , [address] [place] [address] Counselor Supervisor: Toan Lara MD #### [id number] #### [facility] [address] [place] [address] Counselor Supervisor: Parvin Ordoñez FlatiAlbumin/Globulin [Mass ratio]1.5 {ratio}Normal 1.0-2.5Quest DiagnosticsComment on above:Performed By: #### 496, 7600 #### [facility] of [place] [address] [place] , [address] [place] [address] Counselor Supervisor: Toan Lara MD #### [id number] #### [facility] [address] [place] [address] Counselor Supervisor: Parvin Ordoñez FlatiALP [Catalytic activity/Vol]64 U/LHxpmwc38-356 [facility] DiagnosticsComment on above:Performed By: #### 496, 5840 #### [facility] of [place] [address] [place] , [address] [place] [address] Counselor Supervisor: Toan Lara MD #### [id number] #### [facility] [address] [place] [address] Counselor Supervisor: Parvin FelixiALT [Catalytic activity/Vol]32 [id number] [facility]osticsComment on above:Performed By: #### 496, 1390 #### [facility] [place] [address] [place] , [address] [place] [address] Counselor Supervisor: Toan Lara MD #### [id number] #### [facility] [address] [place], [place] [id number] Counselor Supervisor: Parvin FelixiAST [Catalytic activity/Vol]23 [id number] [facility]osticsComment on above:Performed By: #### 496, [id number] #### [facility] [place] [address] [place] , [address] [place] [address] Counselor Supervisor: Toan Lara MD #### [id number] #### [facility] [address] [place] [address] Counselor Supervisor: Parvin Ordoñez FlatiBilirubin [Mass/Vol]0.7 mg/dLNormal0.2-1.2 Quest DiagnosticsComment on above:Performed By: #### 496, 7420 #### [facility] [address], [address] [place] [address] Counselor Supervisor: Toan Lara MD #### [id number] #### [facility] [address] [place], [place] [address] Counselor Supervisor: Parvin Ordoñez FlatiBUN/CREATININE RATIOSEE NOTE:Normal6-22Quest DiagnosticsComment on above:Result Comment: Not Reported: BUN and Creatinine are within reference range.Performed By: #### 496, 9090 #### [facility] [address], [address] [place] [address] Counselor Supervisor: Toan Lara MD #### [id number] #### [facility] [address] [place] [address] Counselor Supervisor: Parvin Ordoñez FlatiCalcium [Mass/Vol]9.3 mg/dLNormal8.6-10.3Quest DiagnosticsComment on above:Performed By: #### 496, 6310 #### [facility] [address], [address] [place] [address] Counselor Supervisor: Toan Lara MD #### [id number] #### [facility] [address] [place], [place] [address] Counselor Supervisor: Parvin Ordoñez FlatiChloride [Moles/Vol]105 mmol/YTmzxlz97-777 Quest DiagnosticsComment on above:Performed By: #### 496, 1370 #### [facility] [address], [address] [place] [address] Counselor Supervisor: Toan Lara MD #### [id number] #### [facility] [address] [place], [place] [address] Counselor Supervisor: Parvin FelixiCO2 [Moles/Vol]26 mmol/NNcwsvo62-33Jjwye DiagnosticsComment on above:Performed By: #### 496, 7610 #### [facility] [address], [address] [place] [address] Counselor Supervisor: Toan Lara MD #### [id number] #### [facility] [address] Counselor Supervisor: Parvin Ordoñez FlatiCreatinine [Mass/Vol]0.84 mg/dLNormal0.70-1.28 Quest DiagnosticsComment on above:Performed By: #### 496, 9860 #### [facility] [address], [address] [place] [address] Counselor Supervisor: Toan Lara MD #### [phone] #### [facility] [address] Counselor Supervisor: Parvin FelixiGFR/1.73 sq M.predicted among non-blacks MDRD (S/P/Bld) [Vol rate/Area]93 mL/min/{1.73_m2}Normal> OR = 60[facility] Comment on above:Performed By: #### 496, 5660 #### [facility] [address], [address] [place] [address] Counselor Supervisor: Toan Lara MD #### [phone] #### [facility] [address] Counselor Supervisor: Parvin FelixiGlobulin (S) [Mass/Vol]2.8 g/dLNormal1.9-3.7 Quest DiagnosticsComment on above:Performed By: #### 496, 2440 #### [facility] [address], [address] [place] [address] Counselor Supervisor: Toan Lara MD #### [id number] #### [facility] [address] Counselor Supervisor: Parvin Ordoñez FlatiGlucose [Mass/Vol]129 mg/vVTebe86-39Bbtqx DiagnosticsComment on above:Result Comment: Fasting reference interval For someone without known diabetes, a glucose value >125 mg/dL indicates that they may have diabetes and this should be confirmed with a follow-up test.Performed By: #### 496, 1820 #### [facility] [address], [address] [place] [address] Counselor Supervisor: Toan Lara MD #### [id number] #### [facility] [address] [place] [address] Counselor Supervisor: Parvin Orodñez FlatiPotassium [Moles/Vol]4.7 mmol/LNormal3.5-5.3 Quest DiagnosticsComment on above:Performed By: #### 496, 2000 #### [facility] [address], [address] [place] [address] Counselor Supervisor: Toan Lara MD #### [id number] #### [facility] [address] [place] [address] Counselor Supervisor: Parvin Ordoñez FlatiProtein [Mass/Vol]7.1 g/dLNormal6.1-8.1Quest DiagnosticsComment on above:Performed By: #### 496, 8960 #### [facility] [address], [address] [place] [address] Counselor Supervisor: Toan Lara MD #### [phone] #### [facility] [address] [place], [place] [address] Counselor Supervisor: Parvin Ordoñez FlatiSodium [Moles/Vol]140 mmol/WAqxqyh728-043Bvzlf DiagnosticsComment on above:Performed By: #### 496, 7950 #### [facility] [address], [address] [place] [address] Counselor Supervisor: Toan Lara MD #### [id number] #### [facility] [address] [place] [address] Counselor Supervisor: Parvin FelixiUrea nitrogen [Mass/Vol]23 mg/dLNormal7-25 Quest DiagnosticsComment on above:Performed By: #### 496, 7600 #### [facility] [address], [address] [place] [address] Counselor Supervisor: Toan Lara MD #### [phone] #### [facility] [address] [place] [address] Counselor Supervisor: Parvin FelixiHEMOGLOBIN A1con 06-52-5479BECMPPDIZR A1c6.3 % of total HgbHigh<5.7Quest DiagnosticsComment on [...] of diabetes for children.Performed By: #### 496, 1790 #### [facility] [address], [address] [place] [address] Counselor Supervisor: Toan Lara MD #### [phone] #### [facility] [address] [place] [address] Counselor Supervisor: Parvin FelixiLIPID PANEL, STANDARDon 28-55-1830Nvsksfovzzm [Mass/Vol]242 mg/dLHigh<200Quest DiagnosticsComment on above:Order Comment: FASTING:YES FASTING: YESPerformed By: #### 496, 4830 #### [facility] [address], [address] [place] [address] Counselor Supervisor: Toan Lara MD #### [id number] #### [facility] [address] [place] [address] Counselor Supervisor: Parvin FelixiCholesterol in HDL [Mass/Vol]40 mg/dLNormal> OR = 40Quest DiagnosticsComment on above:Order Comment: FASTING:YES FASTING: YESPerformed By: #### 496, 2840 #### [facility] [address], [address] [place] [address] Counselor Supervisor: Toan Lara MD #### 94700 #### [facility] [address] [place], [place] [address] Counselor Supervisor: Parvin FelixiCholesterol in LDL [Mass/Vol]142 mg/dLHigh Quest [...] LDL-C. Deion TORIBIO et al. MAHENDRA. 2013;310(19): 1281-7306 (http://education.[employer]/faq/IBZ134)Performed By: #### 496, 9510 #### [facility] [address], [address] [place] [address] Counselor Supervisor: Toan Lara MD #### [phone] #### [facility] [address] [place] [address] Counselor Supervisor: Parvin FelixiCholesterol.total/Cholesterol in HDL [Mass ratio]6.1 {ratio}High<5.0Quest DiagnosticsComment on above:Order Comment: FASTING:YES FASTING: YESPerformed By: #### 496, 6380 #### [facility] [address], [address] [place], [place] [address] Counselor Supervisor: Toan Lara MD #### [id number] #### [facility] [address] [place] [address] Counselor Supervisor: Parvin FelixiNON HDL UIBSTITEIHO725 mg/dL (calc)High<130 Quest DiagnosticsComment on above:Order Comment: FASTING:YES FASTING: YESResult Comment: For patients with diabetes plus 1 major ASCVD risk factor, treating to a non-HDL-C goal of <100 mg/dL (LDL-C of <70 mg/dL) is considered a therapeutic option.Performed By: #### 496, 7600 #### [facility] [address] [facility], [address] [place] [address] Counselor Supervisor: Toan Lara MD #### [id number] #### [facility] [address] [place] [address] Counselor Supervisor: Parvin FelixiTriglyceride [Mass/Vol]389 mg/dLHigh<150Quest DiagnosticsComment on above:Order Comment: FASTING:YES FASTING: YESResult Comment: If a non-fasting specimen was collected, consider repeat triglyceride testing on a fasting specimen if clinically indicated. Aaliyah et al. J. of Clin. Lipidol. 2015;9:129-169.Performed By: #### 496, 0770 #### [facility] [address] [place] [address], [address] [place] [address] Counselor Supervisor: Toan Lara MD #### [phone] #### [facility] [address] [place] [address] Counselor Supervisor: Parvin Ocampo Visiton 28-28-6351Gflyuq-up visit [id number] Juan Miguel Jennings 1950 M Date Provider Department [place] 07/16/2024 ANUJA ARMSTRONG [facility] Family History Problem Relation Age of Onset Heart disease Mother Heart disease Father Family Status - Relation Status Age at Mother Father Level of Service:96613 [place] OFFICE/OUTPATIENT ESTABLISHED MOD MDM 30 [facility]36on 08-60-333921Mkej is his blood pressure running? We can have him try holding amlodipine to see if this will help. We can see how he's feeling at his follow-up appt next week.[facility] HospitalCBC W/AUTO DIFFon 17-25-7138XTV IMMATURE GRAN0.04 K/uLNormal0.00-0.06Pathology Laboratories IncComment on above: Result Comment: UNLESS OTHERWISE INDICATED, ALL TESTING PERFORMED AT: [employer] [address] [place] [address] [employer] CONSULTANT: JONI NI M.D. CLIA NUMBER [id number] CAP ACCREDITATION AUID [id number] NEUTROPHILS5.59 K/uL Normal1.9-8.0Pathology Laboratories IncBasophils (Bld) [#/Vol]0.05 10*3/uLNormal 0.0-0.2Pathology Laboratories IncBasophils/100 WBC (Bld)0.6 %Normal0-2Pathology Laboratories IncEosinophils (Bld) [#/Vol]0.37 10*3/uLNormal0.0-0.80Pathology Laboratories IncEosinophils/100 WBC (Bld)4.3 %Normal0-5Pathology Laboratories IncErythrocyte distribution width (RBC) [Ratio]13.0 %Efqetn48.2-14.8Pathology Laboratories IncHematocrit (Bld) [Volume fraction]49.9 %Hzvune81-85Hjmmetkrd Laboratories IncHemoglobin (Bld) [Mass/Vol]17.1 g/aIGrotyg12.0-18.0Pathology Laboratories IncIMMATURE GRAN0.5 %Normal0-2Pathology Laboratories IncLymphocytes (Bld) [#/Vol]1.72 10*3/uLNormal0.9-5.2Pathology Laboratories IncLymphocytes/100 WBC (Bld)20.0 %Omdegw67-31Ubmhqubeq Laboratories IncMCH (RBC) [Entitic mass] 32.4 lcZbol18.0-32.0Pathology Laboratories IncMCHC (RBC) [Mass/Vol]34.3 g/dL Tffjlv61.0-35.0Pathology Laboratories IncMCV (RBC) [Entitic vol]95 fLNormal 75-100Pathology Laboratories IncMonocytes (Bld) [#/Vol]0.85 10*3/uLNormal0.1-1.0 Pathology Laboratories IncMonocytes/100 WBC (Bld)9.9 %Normal0-13Pathology Laboratories IncNeutrophils/100 WBC (Bld)64.7 %Lelyat05-33Bxrsnzjkp Laboratories BftSHGWTQMN910 THOUS/AYWHbl219-717Ttubmujcu Laboratories IncRBC5.27 MILL/CMM Normal4.40-6.10Pathology Laboratories IncWBC8.6 THDS/CMMNormal3.6-11.0Pathology Laboratories Kes91tx 45-92-477794Eufplnwpr stress test result from 05/17/2024: Paul Clemons, [...] and informed him of above message from [facility]. He agrees to start isosorbide and amlodipine. Sent to [facility] per his request. He will see Dr. Huddleston in clinic on 07/16/2024 in [place]. Do you need me to send something to Iorn Bess or did you already?[facility] Documentationon [id number] Juan Miguel Jennings 1950 M Date Provider Department Center 06/08/2024 [address]95[address]-VGWXIRON DU HVCANTICOAG [facility] HeartVAS Family History Problem Relation Age of Onset Heart disease Mother Heart disease Father Family Status - Relation Status Age at Mother Father Reason for Visit and Comments: PharmD Cardiology Consult [Other][facility] HospitalOrders Onlyon 69-38-3030Ognqev [id number] Juan Miguel Jennings 1950 M Date Provider Department Center 06/02/2024 PAUL JAIMES [facility] Family History Problem Relation Age of Onset Heart disease Mother Heart disease Father Family Status - Relation Status Age at Mother FatherNoalUniCommunity Memorial Hospital 72-48-7240Btnindaow Reminders From: Bertha Winter To: DEBBIE Hubbard Hang Saavedra; Sent: 05/21/2024 12:20:20 EST Show [...] ) Other: PROVIDER RELATED REMINDER:_ ( ) [employer] Display [employer] ( ) Call Pharmacy ( ) Call Lab ( ) Other: Special Instructions:_ Comments:_ Results in chart for reviewBlanchard [facility] TESTOSTERONEon 28-39-0360Tdnnwmhcmmqfhg and review of laboratory resultsAbHolland Hospital Testosterone [Mass/Vol]91 ng/sQYteskxuv128 - 916 ng/dLCox MonettComment on above:Adult male reference interval is based on a population of healthy nonobese males (BMI <30) between 19 and 39 years old. Lonnie et.al. JCEM 2017,102;1845-2410. PMID: [id number]. Performed at: [facility] Lab[address] [id number] Forming Machine Upkeep Mechanic: Zeke Almaguer PhD, Phone: [phone] CLINISYMemphis Mental Health Institute CBC WITH AUTO DIFFon 05-30-9968OJGYUHPIW ABSOLUTE VNCB2AXXU HealthcareBasophils/100 WBC (Bld)0.4 %0.2 - 2.0 %[facility] Eosinophils/100 WBC (Bld)4.2 %0.9 - 7.0 %[facility] HealthcareErythrocyte distribution width (RBC) [Ratio]13.8 %11.0 - 15.0 %[facility] HealthcareHematocrit (Bld) [Volume fraction]53 %42.0 - 54.0 %[facility] HealthcareHemoglobin (Bld) [Mass/Vol]17.9 g/dL 14.0 - 18.0 g/dLCox MonettIMMATURE GRANULOCYTES ABS AUTO0.01NOMS [facility] Immature granulocytes/100 WBC (Bld)0.1 %0.0 - 0.5 %[facility] HealthcareInterpretation and review of laboratory resultsAbnormalNODE HealthcareLYMPHOCYTES ABSOLUTE AUTO1.1LowNCREEK NATION COMMUNITY HOSPITAL – OKEMAH HealthcareLymphocytes/100 WBC (Bld)15 %Low20.5 - 60.0 %[facility] CenterH (RBC) [Entitic mass]32.9 pg25.9 - 34.0 pgMetropolitan Saint Louis Psychiatric CenterHC (RBC) [Mass/Vol]33.8 g/dL29.9 - 35.2 g/dLMetropolitan Saint Louis Psychiatric CenterV (RBC) [Entitic vol]97.4 fL High80.0 - 94.0 fLCox MonettMONOCYTES ABSOLUTE AUTO0.9HighCox Monett Monocytes/100 WBC (Bld)12.2 %High1.7 - 12.0 %Cox MonettNEUTROPHILS ABSOLUTE AUTO4.8NODE HealthcareNeutrophils/100 WBC (Bld)68.1 %43.0 - 75.0 %Cox MonettPlatelet mean volume (Bld) [Entitic vol]12.5 fL9.5 - 13.5 fLCox MonettTBH EO #0.3NOMS [facility] HospitalTB QZJ109FsuRZIFExcelsior Springs Medical Center RBC5.44NOExcelsior Springs Medical Center WBC7.1NOMS HealthcareCLINISYNCNCREEK NATION COMMUNITY HOSPITAL – OKEM[facility] HealthcareCA ECHO DOPPLER COMPLETEon 58-76-4366UtjCentral [place] [address] Cardiology Report Signed Patient: JUAN MIGUEL JENNINGS MR#: [id number] : 1950 Acct:[id number] Age/Sex: 74 / M ADM Date: 05/22/24 Loc: CARD Attending Dr: PAUL CLEMONS APRN Ordering Physician: PAUL CLEMONS APRN Date of Service: 05/22/24 Procedure(s): CA echo doppler complete Accession Number(s): [id number] cc: JORDAN DUNCAN ; PAUL CLEMONS APRN Patient Name: JUAN MIGUEL JENNINGS MR#: [id number] : 1950 Exam Date: 05/22/2024 Ordering Doctor: PAUL CLEMONS TRANSPORTATION EQUIPMENT PAINTER ECHOCARDIOGRAM REPORT PROCEDURE: CA ECHO DOPPLER COMPLETE [...] not included)...TBHRadiology, Radiologist, MD - 05/22/2024 [place] [address] Cardiology Report Signed Patient: JUAN MIGUEL JENNINGS MR#: [id number] : 1950 Acct:[id number] Age/Sex: 74 / M ADM Date: 05/22/24 Loc: CARD Attending Dr: PAUL CLEMONS APRN Ordering Physician: PAUL CLEMONS APRN Date of Service: 05/22/24 Procedure(s): CA echo doppler complete Accession Number(s): [id number] cc: JORDAN DUNCAN ; PAUL CLEMONS APRN Patient Name: JUAN MIGUEL JENNINGS MR#: [id number] : 1950 Exam Date: 05/22/2024 Ordering Doctor: PAUL CLEMONS [facility] ECHOCARDIOGRAM REPORT PROCEDURE: CA ECHO DOPPLER [...] M.D. Signed By: 05/22/241706 DD/ 05 TD/TT: R D Engineer: GIOVANNI HealthcareRadiology Study observation (narrative)GIOVANNI [facility] HospitalCA ECHO DOPPLER COMPLETEOrdered By: Radiologist Radiology on 52-56-6417HANN [facility] Work Phone: ambulatory Visit Summaryon 20-14-6702Zjrsmnesem Visit SummaryAmbulatory Visit Summary JUAN MIGUEL JENNINGS :1950 Visit Date:05/21/2024 Ambulatory Visit Instructions Your Diagnosis Hypogonadism Elevated PSA BPH with urinary obstruction OAB (overactive bladder) Your Care Team Attending Physician - KERI NOLASCO, Topher Ordoñez Primary Care Physician - DAKOTA NOLASCO, JORDAN Brown This Is Your Medications List [facility] Prescription (METOPROLOL TARTRATE 100 MG TAB) [...] [facility] [address] , [place] [address]- Medications What How Much When Instructions Unchanged [...] PSA History of colon cancer Hx of custodial use of blood thinners Hyperlipidemia Hypertension Hypogonadism [...] sclerosis (MS). ??? Ea (more content not included)...[facility] Medical CenterUrology Office/Clinic Noteon 69-98-7070Fyithqm Office/Clinic NoteUrology Office/Clinic Note Chief Complaint hypogonadism [...] Has not been able to donate blood, [facility] will not let him. Pt will talk to his oncologist in [place] to see if there is another way he can donate blood. Shares he got CBC drawn on 05/08 at [facility],no results on [facility], called lab and they did not have [...] onc to facilitate blood donation/get permission for [employer]. 2. Elevated PSA (R97.20: Elevated prostate specific [...] SAAVEDRA MD, URL [facility] [address] [place] [address]- Additional Instructions: f/u pending HGB/CBC and blood [...] PSA History of colon cancer Hx of custodial use of blood thinners Hyperlipidemia Hypertension Hypogonadism [...] mg= 1 tab(s), (more content not included)...Normal Corey HospitalComment on above:Result Comment: Electronically Signed By: Topher SAAVEDRA MD\.br\Date and Time Signed: 05/21/24 12:18 EST\.br\Electronically Co-Signed By: Bertha Winter\.br\Date and Time Co- Signed: 05/21/24 12:17 ESTNM FAITH PERF SPECT REST STRon 22-84-9142[address] [address] Nuclear Medicine Report Signed Patient: JUAN MIGUEL JENNINGS MR#: [id number] : 1950 Acct:[id number] Age/Sex: 74 / M ADM Date: 05/17/24 Loc: CARD Attending Dr: PAUL CLEMONS APRN Ordering Physician: PAUL CLEMONS APRN Date of Service: 05/17/24 Procedure(s): NM faith perf SPECT rest str Accession Number(s): [id number] cc: JORDAN DUNCAN ; PAUL CLEMONS APRN Patient Name: JUAN MIGUEL JENNINGS MR#: [id number] : 1950 Exam Date: 05/17/2024 Ordering Doctor: [...] LOCATION: Mid-anterior. Mid-inferior. Apical anterior. Apical inferior. [place]. SIZE: Large (5 or more segments). SEVERITY: [...] Signed By: 05/18/24 1007 DD/ 1006 TD/TT: R D Engineer:DISHAadiology, Radiologist, - 05/18/[address] [address] Nuclear Medicine Report Signed Patient: JUAN MIGUEL JENNINGS MR#: [id number] : 1950 Acct:[id number] Age/Sex: 74 / M ADM Date: 05/17/24 Loc: CARD Attending Dr: PAUL CLEMONS APRN Ordering Physician: PAUL CLEMONS APRN Date of Service: 05/17/24 Procedure(s): NM faith perf SPECT rest str Accession Number(s): [id number] cc: JORDAN DUNCAN ; PAUL CLEMONS APRN Patient Name: JUAN MIGUEL JENNINGS MR#: [id number] : 1950 Exam Date: 05/17/2024 Ordering Doctor: PAUL CLEMONS TRANSPORTATION EQUIPMENT PAINTER RADIOLOGY REPORT PROCEDURE: NM FAITH PERF SPECT [...] LOCATION: Mid-anterior. Mid-inferior. Apical anterior. Apical inferior. [place]. SIZE: Large (5 or more segments). SEVERITY: [...] Signed By: 05/18/24 1007 DD/ 1006 TD/TT: R D Engineer: [facility] MonettRadiology Study observation (narrative)[facility] FAITH PERF SPECT REST STROrdered By: Radiologist Radiology on 18-46-5780TLPU Healthcare Work Phone: aLL LIPID PROFILE (FASTING)on 42-40-5115YVKT HDL RATIO 4.5NOMS HealthcareComment on above:3.3 - 4.4 LOW RISK 4.4 - 7.1 AVERAGE RISK 7.1 - 11.0 MODERATE RISK >11.0 HIGH RISK Cholesterol [Mass/Vol]189 mg/dLNINF - 200 mg/dLNODE HealthcareCholesterol in HDL [Mass/Vol]42 mg/dL40 - 60 mg/dLNODE HealthcareComment on above:> or =60 mg/dl - LOW CARDIOVASCULAR RISK <40 mg/dl - HIGH CARDIOVASCULAR RISK LDL CHOLESTEROL WEURABEVDN096.2 mg/dLNODE HealthcareComment on above:<100 mg/dl OPTIMAL 100-129 mg/dl NEAR OR ABOVE OPTIMAL 130-159 mg/dl BORDERLINE HIGH 160-189 mg/dl HIGH >190 mg/dl VERY HIGH Magnesium [Mass/Vol]22.8 mg/dLNODE HealthcareTriglyceride [Mass/Vol]114 mg/dL NINF - 150 mg/dLNODE HealthcareCLINISYNCNOMS HealthcareOffice Visiton 05-02-2024 Follow-up [id number] Juan Miguel Jennings 1950 M Date Provider Department Center 05/02/2024 Tessa-PAUL CLEMONS [facility]ARD [facility] Family History Problem Relation Age of Onset Heart disease Mother Heart disease Father Family Status - Relation Status Age at Mother Father Level of Service:84191 [place] OFFICE/OUTPATIENT ESTABLISHED MOD MDM 30 MIN Reason for Visit and Comments: Coronary Artery Disease [187] Hypertension [892400][facility] HospitalAmbulatory Visit Summaryon 51-62-2991Bfgopvdlzt Visit SummaryAmbulatory Visit Summary JUAN MIGUEL JENNINGS :1950 Visit Date:04/23/2024 Ambulatory Visit Instructions Your Diagnosis Hypogonadism Your Care Team Attending Physician - KERI NOLASCO, Topher Ordoñez Primary Care Physician - DAKOTA NOLASCO, JORDNA Brown This Is Your Medications List [facility] Prescription (METOPROLOL TARTRATE 100 MG TAB) aspirin [...] EST With: Where: [facility] [address] [id number]- Tuesday 10:45 AM EST With: Topher SAAVEDRA MD Where: [facility] [address] [address]- Medications What How Much When Instructions Unchanged [...] PSA History of colon cancer Hx of intermission coordinator use of blood thinners Hyperlipidemia Hypertension Hypogonadism [...] you for choosing us for your care. [facility] Medical CenterAmbulatory Visit Summaryon 96-68-5160Lvujhnnoej Visit SummaryAmbulatory Visit Summary JUAN MIGUEL JENNINGS [...] EST With: Where: [facility] [address] [address]- Tuesday 10:45 AM EST With: KERI NOLASCO, Topher Ordoñez Where: [facility] [address] [place] [address]- Medications What How Much When Instructions Unchanged [...] testosterone (testosterone cypionate 200 mg/ mL IM [place]) 400 Milligram Intramuscular Every4 weeks Medications and Immunizations Administered Given Depo-Testosterone 200 mg/mL intramuscular solution, 400 mg, IntraMuscular. For: Hypogonadism male Allergies No Known Allergies Problems Ongoing - Any problem that you are currently receiving treatment for. BPH with urinary obstruction Coronary artery disease Diabetes Elevated PSA History of colon cancer Hx of intermission coordinator use of blood thinners Hyperlipidemia Hypertension Hypogonadism [...] you for choosing us for your care. [facility] W/AUTO DIFFon 57-10-0498WSC IMMATURE GRAN0.02NormalPathology Laboratories IncABS NEUTROPHILS4.23 K/uLNormal 1.50-7.50Pathology Laboratories IncBasophils (Bld) [#/Vol]0.05 10*3/uLNormal 0.00-0.20Pathology Laboratories IncBasophils/100 WBC (Bld)0.7 %NormalPathology Laboratories IncEosinophils (Bld) [#/Vol]0.39 10*3/uLNormal0.00-0.50Pathology Laboratories IncEosinophils/100 WBC (Bld)5.8 %NormalPathology Laboratories Inc Erythrocyte distribution width (RBC) [Ratio]13.8 %Iaffzh04.5-15.0Pathology Laboratories IncHematocrit (Bld) [Volume fraction]54.3 %High40.0-51.0Pathology Laboratories IncHemoglobin (Bld) [Mass/Vol]17.8 g/zCJtgf22.5-17.0Pathology Laboratories IncIMMATURE GRAN0.3 %NormalPathology Laboratories IncLymphocytes (Bld) [#/Vol]1.27 10*3/uLNormal1.00-4.00[facility] Lymphocytes/100 WBC (Bld)18.9 %NormalPathology Laboratories [facility] HospitalH (RBC) [Entitic mass]32.0 jqCnvayf60.0-33.0Pathology Laboratories IncMCHC (RBC) [Mass/Vol]32.8 g/dMGiiqms52.0-36.0Pathology Laboratories IncMCV (RBC) [Entitic vol]97.7 qVLkkyed45.0-99.0Pathology Laboratories IncMonocytes (Bld) [#/Vol]0.77 10*3/uLNormal0.20-1.00Pathology Laboratories IncMonocytes/100 WBC (Bld)11.4 % NormalPathology Laboratories IncNeutrophils/100 WBC (Bld)62.9 %NormalPathology Laboratories IncPlatelet mean volume (Bld) [Entitic vol]12.8 fLNormal9.3-13.0 Pathology Laboratories IncComment on above:Result Comment: [facility] [address] [place] [address] CLIA No. [id number] CAP Accreditation No. [id number] Smt Operator: Shaunna Dee M.D.Platelets (Bld) [#/Vol]128 10*3/rGWta529-296Lrrgmklam Laboratories IncRBC (Bld) [#/Vol]5.56 10*6/uLNormal 4.50-6.10Pathology Laboratories IncWBC (Bld) [#/Vol]6.7 10*3/uLNormal3.5-11.0 [facility] Laboratories IncCOMPREHENSIVE METABOLIC PANEL WITH GFRon 02-22-2024 Albumin [Mass/Vol]4.8 g/dLNormal3.5-5.2Pathology Laboratories IncALK PHOS82 U/L Zzgrbk59-549Sbbysrgbd Laboratories IncALT [Catalytic activity/Vol]26 U/LNormal 5-50Pathology Laboratories IncAnion gap [Moles/Vol]10.0 mmol/LNormal7.0-16.0 Pathology Laboratories IncAST-SGOT28 U/LNormal9-50[facility] Bilirubin.direct [Mass/Vol]0.6 mg/dLNormal<=1.2[facility] Laboratories IncCalcium [Mass/Vol]9.5 mg/dLNormal8.5-10.5Path[facility] Laboratories IncChloride [Moles/Vol] 104 mmol/GJgqpwf91-970Exsmhyoiq Laboratories IncCO2 [Moles/Vol]23 mmol/LNormal 19-31Pathology Laboratories IncCreatinine [Mass/Vol]0.89 mg/dLNormal0.80-1.40 [facility] Laboratories IncGFR/1.73 sq M.predicted among non-blacks MDRD (S/P/Bld) [Vol rate/Area]91 mL/min/{1.73_m2}Normal>60[facility] Glucose [Mass/Vol]138 mg/yLWnmj55-46Esspbjjpz Laboratories IncPotassium [Moles/Vol]4.5 mmol/LNormal3.5-5.4Pathology Laboratories IncProtein [Mass/Vol] 7.6 g/dLNormal6.1-8.3Path[facility] Laboratories IncSodium [Moles/Vol]137 mmol/L Qhiuft319-413Sddoxcede Laboratories IncUrea nitrogen [Mass/Vol]18 mg/dLNormal 8-23Pathology Laboratories IncPOINT OF CARE GLUCOSEon 25-28-1879Lvwfthz [Mass/Vol]112 mg/dLCritically aiqu72-170Lmk [facility] CenterComment on above: Performed By: #### POCGLUC #### [facility] [address] [place] [address] Dr. Patria Fuentes AUTO DIFFon 09-36-1323ZQLO #0.0 103/ulNormal0.0-0.1[facility] HospitalComment on above:Performed By: #### CBC #### [facility] [address] [address] [address] Patria SandersBasophils/100 WBC (Bld)0.5 %Normal0.2-2.0[facility] Comment on above:Performed By: #### CBC #### [facility] [address] [address] [address] Patria Miranda #0.3 103/ulNormal0.0-0.7The [facility] CenterComment on above: Performed By: #### CBC #### [facility] [address] [place] [address] Dr. Patria Zepedaosinophils/100 WBC (Bld)3.2 %Normal0.9-7.0[facility] Comment on above:Performed By: #### CBC #### [facility] [address] [place] [address] Dr. Patria Zepedarythrocyte distribution width (RBC) [Ratio]14.5 %Xcjyzn96.0-15.0 The [facility] CenterComment on above:Performed By: #### CBC #### [facility] [address] [place] [address] Dr. Patria SandersHematocrit (Bld) [Volume fraction]49.0 %Yciers38.0-54.0The [facility] HospitalComment on above:Performed By: #### CBC #### [facility] [address] [place] [address] Dr. Patria SandersHemoglobin (Bld) [Mass/Vol]16.7 g/hDYvcyat41.0-18.0The [facility] CenterComment on above:Performed By: #### CBC #### [facility] [address] [place] [address] Dr. Patria Chino #0.03 10e3/ulNormal0.00-0.03The [facility] CenterComment on above:Performed By: #### CBC #### [facility] [address] [place] [address] Dr. Patria Chino %0.4 %Normal0.0-0.5The [facility] CenterComment on above: Performed By: #### CBC #### [facility] [address] [place] [address] Dr. Patria Mcbride #1.1 103/ulCritically low1.2-3.8The [facility] Comment on above:Performed By: #### CBC #### [facility] [address] [place] [address] Dr. Patria Chambersmphocytes/100 WBC (Bld)14.5 %Critically low20.5-60.0The [facility] CenterComment on above:Performed By: #### CBC #### [facility] [address] [place] [address] Dr. Patria MortensenUAL DIFF REQNONormalThe [facility] CenterComment on above: Performed By: #### CBC #### [facility] [address] [address] [address] Patria Pollack (RBC) [Entitic mass]32.6 anFlngci87.9-34.0The [facility] CenterComment on above:Performed By: #### CBC #### [facility] [address] [place] [address] Dr. Patria Pollack (RBC) [Mass/Vol]34.1 g/uXGprdno95.9-35.2The [facility] CenterComment on above:Performed By: #### CBC #### [facility] [address] [place] [address] Dr. Patria Pollack (RBC) [Entitic vol]95.5 fLCritically high80.0-94.0The [facility] CenterComment on above:Performed By: #### CBC #### [facility] [address] [place] [address] Dr. Patria Stokes #0.8 103/ulNormal0.3-0.8The [facility] CenterComment on above:Performed By: #### CBC #### [facility] [address] [place] [address] Dr. Patria Ponceocytes/100 WBC (Bld)9.6 %Normal1.7-12.0The [facility] on above:Performed By: #### CBC #### [facility] [address] [place] [address] Dr. Patria Hargrove #5.6 103/ulNormal1.4-6.5The [facility] CenterComment on above:Performed By: #### CBC #### [facility] [address] [place] [address] Dr. Patria Núñezutrophils/100 WBC (Bld)71.8 %Vpesan33.0-75.0The [facility] CenterComment on above:Performed By: #### CBC #### [facility] [address] [place] [address] Dr. Patria Nylet mean volume (Bld) [Entitic vol]11.6 fLNormal9.5-13.5The [facility] CenterComment on above:Performed By: #### CBC #### [facility] [address] [place] [address] Dr. Patria SandersPLT154 103/qyDgacav268-886Sgz [facility] CenterComment on above: Performed By: #### CBC #### [facility] [address] [place] [address] Dr. Patria SandersRBC5.13 106/ulNormal4.70-6.10The [facility] CenterComment on above:Performed By: #### CBC #### [facility] [address] [place] [address] Dr. Patria SandersWBC7.8 103/ulNormal4.0-11.0The [facility] CenterComment on above: Performed By: #### CBC #### [facility] [address] [place] [address] Dr. Patria SandersPROF CHEM 8 (BAS METB)on 64-33-9897Eqacp gap [Moles/Vol]11.4 mmol/LNormalCleveland Clinic Union HospitalComment on above:Performed By: #### BMP #### [facility] [address] [place] [address] Dr. Patria SandersCalcium [Mass/Vol]9.1 mg/dLNormal8.5-10.1[facility] Comment on above:Performed By: #### BMP #### [facility] [address] [place] [address] Dr. Patria SandersChloride [Moles/Vol]104 mmol/IJqvhky14-543Ijs [facility] Comment on above:Performed By: #### BMP #### [facility] [address] [place] [address] Dr. Patria SandersCO2 [Moles/Vol]28.7 mmol/NRxyrpg89.0-32.0The [facility] Comment on above:Performed By: #### BMP #### [facility] [address] [place] [address] Dr. Patria SandersCreatinine [Mass/Vol]0.80 mg/dLNormal0.70-1.30The [facility] CenterComment on above:Performed By: #### BMP #### [facility] [address] [place] [address] Dr. Patria ZepedaGFR-AF IRISH>60Normal>=60The [facility] CenterComment on above:Performed By: #### BMP #### [facility] [address] [place] [address] Dr. Patria ZepedaGFR-NON AF IRISH>60Normal>=60The [facility] CenterComment on above:Performed By: #### BMP #### [facility] [address] [place] [address] Dr. Patria SandersGlucose [Mass/Vol]101 mg/uPGjyujk30-613Bvo [facility] Comment on above:Performed By: #### BMP #### [facility] [address] [place] [address] Dr. Patria SandersPotassium [Moles/Vol]4.1 mmol/LNormal3.5-5.1The [facility] Comment on above:Performed By: #### BMP #### [facility] [address] [place] [address] Dr. Patria SandersSodium [Moles/Vol]140 mmol/CDwxjzf440-314BabCleveland Clinic Union Hospital Comment on above:Performed By: #### BMP #### [facility] [address] [place] [address] Dr. Patria SandersUrea nitrogen [Mass/Vol]11.0 mg/dLNormal7.0-18.0The [facility] CenterComment on above:Performed By: #### BMP #### [facility] [address] [place] [address] Dr. Patria Hare nitrogen/Creatinine [Mass ratio]13.8 mg/mgNormalThe [facility] CenterComment on above:Performed By: #### BMP #### [facility] [address] [place] [address] Dr. Patria SandersPROTIMEon 68-61-6827UWW Coag (PPP) [Relative time]1.02 {INR} NormalThe [facility] CenterComment on above:Performed By: #### PTT, PT #### [facility] [address] [place] [address] Dr. Patria Jaquez GUIDELINESSEE BELOWNormalThSelect Medical Specialty Hospital - AkronComment on above:Result Comment: DESIRED INR: 2.0 - 3.0 CONDITIONS NOT LISTED BELOW 2.5 - 3.5 FOR PROSTHETIC HEART VALVE REPLACEMENT 2.5 - 3.5 RECURRENT THROMBOSIS Performed By: #### PTT, PT #### [facility] [address] [place] [address] Dr. Patria SandersPT Coag (PPP) [Time]10.8 sNormal9.0-11.6ThSelect Medical Specialty Hospital - Akron Comment on above:Performed By: #### PTT, PT #### [facility] [address] [place] [address] Dr. Patria ShearerTon 08-53-7696bBAF Coag (Bld) [Time]32.0 yEpnvvh92.3-36.2[facility] HospitalComment on above:Performed By: #### PTT, PT #### [facility] [address] [place] [address] Dr. Patria Potts-19 PCR ([facility])on 61-34-5639TJFK-CoV-2 (COVID-19) RNA NANCY+probe Ql (Unsp spec)Not detectedNormalNOT DETECTEDCleveland Clinic Union Hospital Comment on above:Result Comment: This test is not yet approved or cleared by the [place] FDA. When there are no FDA-approved or cleared tests available, and other criteria are met, FDA can make tests available under an emergency access mechanism called an Emergency Use Authorization (EUA). The EUA for this test is supported by the Prospect Manager of Health and Human Service's (HHS's) [...] consistent with SARS-CoV-2.Performed By: #### CVDTBH #### [facility] [address] [place], [place] [address] Dr. Patria SandersHemoglobin A1Con 89-67-2738VRJ418.37NormalNorthern [facility]arr Regional [facility] SpecialistComment on above:Performed By: #### A1C #### [facility] [address], [place] [id number] (Bld) [Mass fraction]6.1 %High4.0-6.0N[facility]en[facility]S Medical CenterComment on above:Performed By: #### A1C #### [facility] [address], [place] [id number] 07-54-3167SKPMKY930.70 ng/dLNormal 193.00-740.00NortMer[address] Health St[address] Anne HospitalComment on above:Performed By: #### TEST #### [facility] [address], [place] [id number] Noteon 45-64-2354ZHS IP Note OR TranscriptionNormal [facility] Vital Signs Date TimeVital SignValuePerforming PedzinzzbObtpwihp16-40-9031 08:32-0500Body krukzn354.1 cmSteven Rusher DPM Work Phone: [phone] [place], [place] [address]Sagpouygrw45-34-2000 08:32-0500Body mass index (BMI) [Ratio]40.1 kg/t0Tavcit Rusher DPM Work Phone: [facility]ettSqcuscxbyc26-51-7675 08:32-0500Body nisksw960.4 kgSteven Rusher DPM Work Phone: [phone] [place], [place] [address]Kfuvffapqc54-96-7809 15:48-0400Body oqypvs417.1 cmSteven Rusher DPM Work Phone: [phone] MonettIogwuybwph70-27-5352 15:48-0400Body mass index (BMI) [Ratio]40.1 kg/y9Hizsvrnica Ibrahim DPM Work Phone: [facility]ettOuwuwkxwbn27-26-0264 15:48-0400Body bamocy804.4 kgStnica Ibrahim DPM Work Phone: [facility]ettXgincurpuw96-34-8411 09:47-0400Body uzbatx429.1 cmEcharlene Duncan MD Work Phone: [phone] [place], [place] [address]Ewcijmrjje72-09-3369 09:47-0400Body mass index (BMI) [Ratio]40.1 kg/i0NsyomuJordan Duncan MD Work Phone: [phone] [place], [place] [address]Nteiffvgca74-81-6136 09:47-0400Body idzrnz965.4 kgJordan Duncan MD Work Phone: [phone] [place], [place] 5533010-14-2025 09:47-0400Diastolic blood kgzpywth34 mm[Hg]Jordan Duncan MD Work Phone: [phone])[facility] [place], [place] [address]Gbcnrxlean06-24-9601 09:47-0400Heart rate57 /min Jordan Duncan MD Work Phone: [phone] [place], [place] [address]Esujouskcs24-24-1380 09:47-0801NjO6% (BldA) [Mass fraction]96 %Jordan Duncan MD Work Phone: 1(085)[address]10-14-2025 09:47-0400Systolic blood jpowhbcb500 mm[Hg]Jordan Duncan MD Work Phone: [phone])[address] [place], [place] 5533004-15-2025 09:24-0400Body unkpjz988.1 Cortney Duncan MD Work Phone: [phone] [place] [address]-15-2025 09:24-0400Body mass index (BMI) [Ratio]40.1 kg/k3UjtibrJordan Duncan MD Work Phone: [phone] [place], [place] [address]Sbfoyqwioi17-13-7793 09:24-0400Body ysiwnp067.4 kgJordan Duncan MD Work Phone: [phone] [place], [place] [address]Vlzgidgnoz01-45-7703 09:24-0400Diastolic blood mm[Hg]Jordan Duncan MD Work Phone: 1(960)[facility] [place], [place] [address]Mjtkomupkj45-29-4072 09:24-0400Heart rate63 /min Jordan Duncan MD Work Phone: [phone] [place], [place] 5533004-15-2025 09:24-2782TyW3% (BldA) [Mass fraction]98 %Jordan Duncan MD Work Phone: [phone])[address] [place], [place] 5533004-15-2025 09:24-0400Systolic blood yibfezrf611 mm[Hg]Jordan Duncan MD Work Phone: [phone])[address] [place], [place] 5533002-19-2025 10:01-0500Body yrbnmn595.1 cmEcharlene Duncan MD Work Phone: [phone] [place], [place] 5533002-19-2025 10:01-0500Body mass index (BMI) [Ratio]39.64 kg/h6FfeyjlJordan Duncan MD Work Phone: [phone])[address] [place], [place] 5533002-19-2025 10:01-0500Body gugzjc224.58 kgJordan Duncan MD Work Phone: [phone])[address] [place], [place] 5533002-19-2025 10:01-0500Diastolic blood izbquxdq88 mm[Hg]Jordan Duncan MD Work Phone: [phone])[address] [place], [place] 5533002-19-2025 10:01-0500Heart rate58 /min Jordan Duncan MD Work Phone: [phone])[address] [place], [place] 5533002-19-2025 10:01-2391AiV9% (BldA) [Mass fraction]98 %Jordan Duncan MD Work Phone: [phone])[address] [place], [place] 5533002-19-2025 10:01-0500Systolic blood rbqzlyea699 mm[Hg]Jordan Duncan MD Work Phone: [phone])[address] [place], [place] 5533001-30-2025 13:45-0500Diastolic blood rlidgkud78 mm[Hg]Mthz ScheduleBon [facility]01-30-2025 13:45-0500Heart rate77 /minMthz ScheduleBon [facility]01-30-2025 13:45-0500Systolic blood jhetgiaa284 mm[Hg]Mthz [facility]01-30-2025 13:16-0500Body rrooqaltoet61.5 [degF][facility] 07-05-2024 13:16-0500Respiratory rate18 /minMthz [facility]12-16-2024 10:44-0500Blood Pressure LocationPatricbaljinder SAAVEDRA [facility]12-16-2024 10:44-0500Body gefbczhdnzt94.6 [degF]Topher SAAVEDRA [facility]12-16-2024 10:44-0500Diastolic blood bjzqyfgx77 mm[Hg]Topher SAAVEDRA [facility]12-16-2024 10:44-0500Heart rate58 /minPatrick KERI [facility]12-16-2024 10:44-0500Respiratory rate16 /minPatrick KERI [facility]12-16-2024 10:44-0500Systolic blood kryxtgmj784 mm[Hg]Topher SAAVEDRA [facility]12-10-2024 10:21-0500Body eqrvjw960.1 cmSteven Toddher DPM Work Phone: [facility]ettDcooihqhej36-95-4076 10:21-0500Body mass index (BMI) [Ratio]40.45 kg/y7Qqwqyc Rusher DPM Work Phone: [facility]ettLxcjufemqc34-86-0239 10:21-0500Body ydsrzv532.76 kgSteven Toddher DPM Work Phone: [facility]ettGtkvtedvwr81-81-0734 10:41-0500Body .1 cmSteven Rusher DPM Work Phone: [phone] [place], [place] 6571211-18-2024 10:41-0500Body mass index (BMI) [Ratio]40.45 kg/o5Tlaxec Rusher DPM Work Phone: [phone] [place], [place] 6571211-18-2024 10:41-0500Body olqwhf183.76 kgSteven Rusher DPM Work Phone: [phone] [place], [place] 6571210-24-2024 12:49-0400Body nzjgqe050.1 cmSteven Rusher DPM Work Phone: [phone] [place], [place] 657[address]10-24-2024 12:49-0400Body mass index (BMI) [Ratio]40.45 kg/l1Iznoba Rusher DPM Work Phone: [phone])[address] [place], [place] 657[address]10-24-2024 12:49-0400Body wdejet235.76 kgSteven Rusher DPM Work Phone: [phone] [place], [place] 657[address]10-22-2024 14:00-0400Body wvvlod844.1 cmEcharlene Duncan MD Work Phone: [phone] [place], [place] 5533010-22-2024 14:00-0400Body mass index (BMI) [Ratio]40.45 kg/q4EyytdxJordan Duncan MD Work Phone: [phone])[address] [place], [place] 5533010-22-2024 14:00-0400Body ufhldf465.76 kgJordan Duncan MD Work Phone: [phone] [place] [address]-22-2024 14:00-0400Diastolic blood yhdrpera66 mm[Hg]Jordan Duncan MD Work Phone: [phone])[address] [place], [place] 5533010-22-2024 14:00-0400Heart rate71 /min Jordan Duncan MD Work Phone: [phone])[address] [place] [address]-22-2024 14:00-4768MsA2% (BldA) [Mass fraction]97 %Jordan Duncan MD Work Phone: [phone])[address] [place] [address]-22-2024 14:00-0400Systolic blood sfjvozvt472 mm[Hg]Jordan Duncan MD Work Phone: [facility]ettFscosubouo29-57-0827 09:41-0400Body .1 cmSteven Rusher DPM Work Phone: [facility]ettJrwqkfpyem84-15-1494 09:41-0400Body mass index (BMI) [Ratio]40.45 kg/u0Ixjzsc Rusher DPM Work Phone: [facility]ettSzajkxgrwi39-54-3581 09:41-0400Body avrjce681.76 kgSteven Toddher DPM Work Phone: [phone] [place], [place] [address]Lnjynoncrm80-32-8732 10:38-0400Blood Pressure LocationPatrick SAAVEDRA [facility]07-01-2024 10:38-0400Body xjpzfmauhbv65.6 [degF]Topher SAAVEDRA [facility]07-01-2024 10:38-0400Diastolic blood bhyiawyz70 mm[Hg]Topher SAAVEDRA [facility]07-01-2024 10:38-0400Heart rate69 /minPatrick SAAVEDRA [facility]07-01-2024 10:38-0400Respiratory rate16 /minPatrick SAAVEDRA [facility]07-01-2024 10:38-0400Systolic blood ttufnvmf615 mm[Hg]Topher SAAVEDRA [facility]02-13-2024 10:37-0500Body elifrl984.1 cmSteven Rusher DPM Work Phone: [facility]ettInfoglleqk42-06-7356 10:37-0500Body mass index (BMI) [Ratio]39.87 kg/x4Ezqkjfnica Ibrahim DPM Work Phone: [facility]ettJmugwmwyae11-02-6006 10:37-0500Body qjjvax626.49 kgSteven Alexandria DPM Work Phone: [facility] MonettLyxxkuanva16-12-3955 10:33-0500Blood Pressure LocationPa6fusionk Z[employer] [facility]01-15-2024 10:33-0500Diastolic blood mm[Hg]Topher SAAVEDRA [facility]01-15-2024 10:33-0500Heart rate70 /minPaAudioCompass [facility]01-15-2024 10:33-0500Respiratory rate16 /minPatrick [employer]encoder [facility]01-15-2024 10:33-0500Systolic blood gnzmukmo048 mm[Hg]Topher SAAVEDRA [facility]06-02-2023 10:12-0400Blood Pressure LocationPa6fusionk [employer] [facility]06-02-2023 10:12-0400Diastolic blood iqtprbpw22 mm[Hg]Topher SAAVEDRA [facility]06-02-2023 10:12-0400Heart rate68 /minPaAudioCompass [facility]06-02-2023 10:12-0400Respiratory rate16 /minPatrick [employer]encoder [facility] [address]02-2023 10:12-0400Systolic blood mm[Hg]Topher SAAVEDRA [facility]05-31-2023 14:34-0400Body avtfzfrneik40.5 [degF]Mthz [facility]05-[facility]-2023 14:34-0400Diastolic blood sljpqmmo12 mm[Hg]Mthz Schedule [facility]05-31-2023 14:34-0400Heart rate72 /minMthz ScheduleB[facility]05-31-2023 14:34-0400Respiratory rate18 /minMthz ScheduleB[facility]05-31-2023 14:34-0400Systolic blood zniwcchm732 mm[Hg]Mthz ScheduleB[facility]01-13-2023 08:55-0500Blood Pressure Location Topher SAAVEDRA [facility]01-13-2023 08:55-0500Diastolic blood jbysbifd58 mm[Hg]Topher SAAVEDRA [facility]01-13-2023 08:55-0500Heart rate80 /minPatrick KERI [facility]01-13-2023 08:55-0500Respiratory rate16 /minPatrick SAAVEDRA [facility]01-13-2023 08:55-0500Systolic blood mm[Hg]Topher SAAVEDRA [facility]12-12-2022 09:43-0500Blood Pressure LocationTopher KERI [facility]12-12-2022 09:43-0500Diastolic blood bvuchzsw90 mm[Hg]Topher SAAVEDRA [facility]12-12-2022 09:43-0500Heart rate63 /minPatrick SAAVEDRA [facility]12-12-2022 09:43-0500Systolic blood arakmvhv071 mm[Hg]Topher SAAVEDRA [facility]08-29-2022 09:48-0400Blood Pressure LocationPacharlesk SAAVEDRA [facility]08-29-2022 09:48-0400Diastolic blood tzobawuh49 mm[Hg]Topher SAAVEDRA [facility]08-29-2022 09:48-0400Heart rate84 /minPatrick SAAVEDRA [facility]08-29-2022 09:48-0400Respiratory rate16 /minTopher SAAVEDRA [facility]08-29-2022 09:48-0400Systolic blood vweubsqy39 mm[Hg]Topher SAAVEDRA [facility]08-25-2022 13:48-0400Diastolic blood cxmepozu40 mm[Hg]Mthz Lab Schedule [facility]08-25-2022 13:48-0400Heart rate56 /minMthz Lab Schedule [facility]08-25-2022 13:48-0400Respiratory rate18 /minMthz Lab ScheduleB[facility]08-25-2022 13:48-0400Systolic blood pouofete384 mm[Hg]Mthz Lab ScheduleB[facility]08-25-2022 13:25-0400Body ojtcfdgytky88.39 [degF]Mthz Lab ScheduleB[facility]05-19-2021 12:25-0400Body mkgtbqhcpmo15.81 [degF]Mthz [facility]Met[facility] [employer] Work Phone: 1(304) 794-745905-19-2021 12:25-0400Heart rate67 /minMthz Schedule [facility] [employer] Work Phone: 1(124) 181-189102-21-2020 08:03-0500Body Moognxndevd60.3 [degF]Mthz [facility]- [place], OU32-63-4267 08:03-0500BP Gaqjjmlmv80 mm[Hg][facility]- [place], UY13-29-6154 08:03-0500BP Hujjxccb740 mm[Hg][facility] [place], IK88-01-9422 08:03-0500Pulse (Heart Rate)63 /minMthz [facility], OT29-04-1765 08:03-0500Respiratory Rate20 /minMthz [facility], JD34-92-0731 08:02-0400Body Gbpyoltsknp95.69 [degF] Mthz [facility], TD85-20-4912 08:02-0400BP Feyzsifen13 mm[Hg][facility] [place], PC48-67-2783 08:02-0400BP Sgxkdycx182 mm[Hg][facility], WR22-31-9232 08:02-0400Pulse (Heart Rate)74 /minMthz [facility], IM25-48-4574 08:02-0400Respiratory Rate20 /minMthz [facility] [place], GO23-12-3179 08:03-0400Body Vgoueibcgnl90.91 [degF] Mthz [facility]- [place], RC21-47-8888 08:03-0400BP Uqtjlbuhp16 mm[Hg][facility]- [place], UB25-64-7417 08:03-0400BP Ivgphlxs409 mm[Hg][facility] [place], PA06-73-0240 08:03-0400Pulse (Heart Rate)63 /minMthz [facility]- [place], BX37-51-6412 08:03-0400Respiratory Rate20 /minMthz [facility], [place] Encounters Encounter DateEncounter TypeCare ProviderFacilityStart: 90-81-9562ysrmdvktzknalini SAAVEDRAFacility:DEBBIE BellevueStart: 04-09-2025 End: 89-11-3532Tkiuyb flowsheetSteven A Rusher DPM Work Phone: noDE [place] PodiatryStart: 04-09-2025 End: 41-51-2982Cegjnx flowsheetSteven A Rusher DPM Work Phone: [facility]t PodiatryStart: 04-09-2025 End: 43-64-4952jswzyyaeuzDWHRTH A RUSHERNot AvailableStart: 04-09-2025 End: 57-51-5863Mcmhtd follow up visit related to original pxSteven A Rusher DPM Work Phone: noDE [place] PodiatryComment on above:Diabetic polyneuropathy associated with type 2 diabetes mellitus (HCC) (Primary Dx); Nontraumatic amputation of foot, left (HCC); Nontraumatic amputation of foot, right (HCC)Start: 03-26-2025 End: 86-50-8607Ugjbpg Vance Duncan MD Work Phone: NODE [facility] MedicineStart: 03-25-2025 End: 73-31-6674Vxmeoo outpatient visit 15 minutesSteven A Rusher DPM Work Phone: no[facility] PodiatryComment on above:Diabetic polyneuropathy associated with type 2 diabetes mellitus (HCC) (Primary Dx); Nontraumatic amputation of foot, left (HCC); Nontraumatic amputation of foot, right (HCC); Acquired keratodermaStart: 03-25-2025 End: 92-15-4016lxgnfmdngkVFXEBC A RUSHERNot AvailableStart: 03-25-2025 End: 56-85-5829Bozzzj flowsheetSteven A Rusher DPM Work Phone: [facility] PodiatryStart: 03-25-2025 End: 50-93-7944Afctfb flowsheetStevictor hugo Dameon Ibrahim DPM Work Phone: NOMS [facility] PodiatryStart: 03-19-2025 End: 39-93-3685Usxdhl Florencio Duncan MD Work Phone: NOMS [address] 100 Family MedicineStart: 03-19-2025 End: 68-14-0767Boofzx flowsheetJordan Duncan MD Work Phone: NOMS [place] 100 Family MedicineStart: 03-19-2025 End: 64-52-7704iwdmdhdgzqXQGEHU J HEMEYERNot AvailableStart: 03-19-2025 End: 31-52-5346Ajmdqg outpatient visit 25 minutesEdarsh Duncan MD Work Phone: NO Jose 100 Family MedicineComment on above:Type 2 diabetes mellitus with diabetic polyneuropathy, without long-term current use of insulin (HCC); Type 2 diabetes mellitus with diabetic microalbuminuria, without long-term current use of insulin (HCC); Essential hypertension; Microalbuminuria; Mixed hyperlipidemia; Adverse reaction to statin medication; Former smoker; Morbid obesity ([facility]-HCC); DyspepsiaStart: 02-08-2025 End: 85-31-0462mvzvcwpmpuLcdgqtw R WATERSFacility:EU BellevueStart: 02-08-2025 End: 68-16-7865Gvefmgg encounter procedureTopher SAAVEDRA [facility] start: 01-15-2025 End: 10-95-9638EeflccYniwgv J Hemeyer MD Work Phone: NO Jose 100 Family MedicineComment on above: DyspepsiaStart: 01-14-2025 End: 79-17-9747Rlifontfx Result EncounterGeneric External Data ProviderNOMS External Department UnsolicitedStart: 01-14-2025 End: 43-19-8952Xolqigrlh Result EncounterGeneric External Data ProviderNOMS External Department UnsolicitedStart: 01-01-2025 End: 46-56-0154Nybpttbkz Result EncounterGeneric External Data ProviderNOMS External Department UnsolicitedStart: 01-01-2025 End: 14-75-5105Lnhstqqtf Result EncounterGeneric External Data ProviderNOMS External Department UnsolicitedStart: 01-01-2025 End: 44-91-2593isupqtpsdtYtcvlRiverside [facility] Work Phone: Start: 01-01-2025 End: 32-50-9640Lztwvovs [facility] MS-LAB Path Spec [place] HospStart: 12-28-2024 End: 66-77-1081Sdmkdrpfv Result EncounterGeneric External Data ProviderNOMS External Department UnsolicitedStart: 12-28-2024 End: 04-15-8662Rwamxjrbo Result EncounterGeneric External Data ProviderNOMS External Department UnsolicitedStart: 12-26-2024 End: 74-75-9081Fbgqmkmbq Result EncounterGeneric External Data ProviderNOMS External Department UnsolicitedStart: 12-26-2024 End: 37-36-1980Geuinwxic Result EncounterGeneric External Data ProviderNOMS External Department UnsolicitedStart: 12-21-2024 End: 61-33-9141umpovncuumURXIPomerene Hospitaltart: 12-21-2024 End: 36-57-0098Sqlaqywqn for other preprocedural examinationADAMcKitrick Hospitaltart: 12-03-2024 End: 63-76-9786Gjcptamwz Abby Duncan MD Work Phone: NOMS CI FM 100Start: 10-18-2024 End: 89-81-5764Rxluuvksa Abby Duncan MD Work Phone: NOMS CI FM 100Start: 09-18-2024 End: 16-30-4695Xrinda flowsheetJordan Duncan MD Work Phone: NOMS CI FM 100Start: 09-18-2024 End: 70-78-1920Cxmyyy flowsMonique Duncan MD Work Phone: NOMS CI FM 100Start: 09-18-2024 End: 26-59-1118Mickyt outpatient visit 25 minutesEdarsh Duncan MD Work Phone: NOMS CI FM 100Comment on above:Essential hypertension (CMS/HCC) (Primary Dx); Microalbuminuria; Type 2 diabetes mellitus with diabetic microalbuminuria, without long-term current use of insulin (CMS/HCC); Type 2 diabetes mellitus with diabetic polyneuropathy, without long-term current use of insulin ([facility]/HCC); Mixed hyperlipidemia ([facility]); Adverse reaction to statin medicationStart: 09-18-2024 End: 06-54-1912hzrkuamextJJBEOU J HEMEYERNot AvailableStart: 09-13-2024 End: 28-45-8383MgkqugRakovw J Hemeyer MD Work Phone: NOMS CI FM 100Comment on above:DyspepsiaStart: 07-25-2024 End: 42-48-9820Lpclto flowsMonique Duncan MD Work Phone: NOMS CI FM 100Start: 07-25-2024 End: 44-78-2163Wbizhu flowsMonique Duncan MD Work Phone: NOMS CI FM 100Start: 07-25-2024 End: 52-65-2189Vpndneh encounter procedureJordan Duncan MD Work Phone: NOMS CI FM 100Comment on above:Encounter for Medicare annual wellness exam (Primary Dx); Advance directive in chart; Encounter for screening for other disorder; Screening for alcohol problem; Morbid (severe) obesity due to excess calories ([facility]); BMI 39.0-39.9,adult; Type 2 diabetes mellitus with diabetic polyneuropathy, without long-term current use of insulin ([facility]/HCC); Type 2 diabetes mellitus with diabetic microalbuminuria, without long-term current use of insulin ([facility]/HCC); Type 2 diabetes mellitus with foot ulcer (CODE) ([facility]/HCC); Non-pressure chronic ulcer of other part of unspecified foot with unspecified severity (CMS/HCC); 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); Partial nontraumatic amputation of foot, left (CMS/HCC); Atherosclerosis of [place] coronary artery of [place] heart without angina pectoris (CMS/HCC); History of myocardial infarction (CMS/HCC); Mixed hyperlipidemia (CMS/HCC); Adverse reaction to statin medication; Primary open angle glaucoma of both eyes, unspecified glaucoma stage (CMS/HCC) Start: 07-25-2024 End: 22-73-9380tjuskbccooHFMSNZ J HEMEYERNot AvailableStart: 07-16-2024 End: 57-16-5085xnpxphxodqGQLYOQ [facility] Start: 07-05-2024 End: 93-29-0357genrujncjfIHZZALong [facility] HospitalStart: 07-05-2024 End: 77-37-0667Ccxhyttjqx hospital [facility] Fast Track Chair 1 ScheduleELLENVILLE REGIONAL [facility] MED ONCComment on above:Polycythemia (Primary Dx)Start: 06-18-2024 End: 84-15-6767Pcwenxsek Abby Duncan MD Work Phone: NOMS CI FM 100Start: 05-22-2024 End: 35-41-8303Cdpvqymnc Result EncounterGeneric External Data ProviderNOMS External Department UnsolicitedStart: 05-22-2024 End: 18-64-1125Fnhzkmiog Result EncounterGeneric External Data ProviderNOMS External Department UnsolicitedStart: 05-21-2024 End: 88-33-3707lvhtcgwrjwGlqwazk R WATERSFacility:EU BellevueStart: 05-21-2024 End: 29-77-8985Qpztyah encounter procedureTopher SAAVEDRA [facility] start: 05-18-2024 End: 68-51-6676Zwqxiubfk Result EncounterGeneric External Data ProviderNOMS External Department UnsolicitedStart: 05-18-2024 End: 35-10-5346Tadoncyzo Result EncounterGeneric External Data ProviderNOMS External Department UnsolicitedStart: 05-15-2024 End: 96-17-9041vxmjhgdldvZDQQLS Dameon TODDHERNot AvailableStart: 05-15-2024 End: 98-40-5133Fpyrhn follow up visit related to original pxSteven A Alexandria DPM Work Phone: NOMS PODIATRYComment on above:Diabetic polyneuropathy associated with type 2 diabetes mellitus (CMS/HCC) (Primary Dx); Nontraumatic amputation of foot, left (CMS/HCC); Nontraumatic amputation of foot, right (CMS/HCC)Start: 05-08-2024 End: 16-70-5545Vvgxwaxbe Result EncounterGeneric External Data ProviderNOMS External Department UnsolicitedStart: 05-08-2024 End: 30-56-0252Cxwtsskef Result EncounterGeneric External Data ProviderNOMS External Department UnsolicitedStart: 74-44-3826hprnnfflunJlfdctl R WATERS [facility]: 05-02-2024 End: 91-18-6046ywyadpnlpxARMBPNQToledo Hospitaltart: 04-23-2024 End: 98-33-9107Gdwwgd flowsheetSteven A Rusher DPM Work Phone: NOMS PODIATRYStart: 04-23-2024 End: 26-04-1776Uywczt flowsheetSteven A Rusher DPM Work Phone: NOMS PODIATRYStart: 04-23-2024 End: 72-51-4485qhynnssfkqWyqqnsd R WATERScility:Virtua Marltontart: 04-23-2024 End: 07-09-3148Dhriazz encounter procedureTopher SAAVEDRA [facility] comment on above:Diabetic polyneuropathy associated with type 2 diabetes mellitus (CMS/HCC) (Primary Dx); Nontraumatic amputation of foot, left (CMS/HCC); Nontraumatic amputation of foot, right (CMS/HCC)Start: 04-09-2024 End: 02-36-1798Oeqgjjwdb encounterSteven A Rusher DPM Work Phone: noms PODIATRYComment on above:Advice Only (orthotics)Start: 03-29-2024 End: 74-31-8754Vlkxeg flowsheetSteven A Rusher DPM Work Phone: noms PODIATRYStart: 03-29-2024 End: 60-18-9281Kkxoiy flowsheetSteven A Rusher DPM Work Phone: NOOX PODIATRYStart: 03-29-2024 End: 21-70-2487Wtpspp follow up visit related to original pxSteven A Toddher DPM Work Phone: noms PODIATRYComment on above:Diabetic polyneuropathy associated with type 2 diabetes mellitus (CMS/HCC) (Primary Dx); Nontraumatic amputation of foot, left (CMS/HCC); Nontraumatic amputation of foot, right (CMS/HCC)Start: 03-27-2024 End: 18-11-6098Ubrqdc Florencio Duncan MD Work Phone: noMS CI FM 100Start: 03-27-2024 End: 92-72-3787Pjmdmj Florencio Duncan MD Work Phone: noMS CI FM 100Start: 03-27-2024 End: 09-45-8033Agmogd outpatient visit 25 minutesEdarsh Duncan MD Work [...] Former smoker; Morbid obesity (CMS/HCC)Start: 03-27-2024 End: 91-85-1807nzdvnxbagfJvqtxrrJake Grayity:EU [facility] Centertart: 03-27-2024 End: 99-84-3869Mjotcea encounter Cory SAAVEDRA [facility] start: 03-13-2024 End: 62-83-7312Ikeybe flowsheetSteven A Rusher DPM Work Phone: noms PODIATRYStart: 03-13-2024 End: 09-53-6422Cuvtqn flowsheetSteven A Rusher DPM Work Phone: noms PODIATRYStart: 03-13-2024 End: 33-62-6286Ixrerqx encounter procedureSteven A Rusher DPM Work Phone: noms PODIATRYComment on above:Acquired keratoderma (Primary Dx); Diabetic polyneuropathy associated with type 2 diabetes mellitus (CMS/HCC); Nontraumatic amputation of foot, left (CMS/HCC); Nontraumatic amputation of foot, right (CMS/HCC)Start: 03-01-2024 End: 42-57-0178uuthqxblpgURVEKOEdgar SchwartzThe Institute of Livingtart: 02-27-2024 End: 53-12-1685uppvganrteYbpfmmz R WATERSFacility:EU [facility] Centertart: 02-27-2024 End: 92-51-6766Vkkfbtt encounter Cory SAAVEDRA [facility] start: 01-31-2024 End: 36-54-1899Irilfmf encounter procedureAurora Claritza Solomon [facility] start: 12-05-2023 End: 79-01-0638Nmzawzp encounter procedurePaluciano SAAVEDRA [facility] start: 11-09-2023 End: 59-45-7216letpfxvzvpMUOQJYAntonella Maravilla [facility] Hospitaltart: 11-07-2023 End: 27-22-6659Mjskuzb encounter procedurePaluciano SAAVEDRA [facility] start: 10-07-2023 End: 88-57-9991Mbludfg encounter procedurePaluciano SAAVEDRA [facility] start: 09-09-2023 End: 55-10-3729Rowwksb encounter procedureTopher SAAVEDRA [facility] start: 08-15-2023 End: 17-52-4233Xhixyfk encounter procedurePaluciano SAAVEDRA [facility] start: 10-44-6335Ofxbsb flowsheetSmaykel Ibrahim DPM Work Phone: noms PODIATRYStart: 46-35-8357Kssxpw flowsheet Brody Ibrahim DPM Work Phone: noms PODIATRYStart: 07-19-2023 End: 20-70-2410Twwndss encounter procedureStevictor hugo Ibrahim DPM Work Phone: noms PODIATRYComment on above:Dermatophytosis of nail (Primary Dx); Dystrophic nail; Diabetic polyneuropathy associated with type 2 diabetes mellitus (CMS/HCC); Nontraumatic amputation of foot, right (CMS/HCC); Nontraumatic amputation of foot, left (CMS/HCC); Acquired keratodermaStart: 07-18-2023 End: 96-18-2500Hlqrpkj encounter procedureTopher SAAVEDRA [facility] Secret start: 06-20-2023 End: 85-32-5856Syfpzae encounter procedureTopher SAAVEDRA [facility] start: 05-09-2023 End: 40-51-2443Yrihsig encounter procedureTopher Ordoñez SAAVEDRA [facility] Secret start: 04-04-2023 End: 98-32-1251Gxfuxyd encounter procedureTopher Ordoñez SAAVEDRA [facility] Secret start: 02-08-2023 End: 88-41-6722Slasdqv encounter procedureJORDAN DUNCANExec[facility] Secret start: 01-03-2023 End: 02-83-4647Ritdqmn encounter procedureTopher SAAVEDRA Secret [facility] start: 12-03-2022 End: 09-07-6969Blimjov encounter procedureTopher Ordoñez [employer] [facility] start: 11-05-2022 End: 35-51-5114Boprgsu encounter procedureTopher Ordoñez SAAVEDRA [facility] start: 11-03-2022 End: 64-76-6083Utlgehnwxi [facility] 7 ScheduleELLENVILLE REGIONAL [facility] MED ONCComment on above:Polycythemia (Primary Dx)Start: 10-25-2022 End: 15-12-1950hncpkplyoaWIZTUIOY CULLENFacility:V9Ojkkx: 10-05-2022 End: 56-38-0103qdyhukemwlXT DALEARSH MILIANENOC .Facility:O4Aglve: 10-05-2022 End: 70-30-6909Patgcmu encounter procedurePaluciano SAAVEDRA [facility] start: 09-30-2022 End: 77-97-5607hscierscgaNB TOPHER SAAVEDRA .Facility:V7Rftmm: 09-27-2022 End: 97-34-3242zgurxqpajuYZJJMDNJ CULLENFacility:Y0Pxsaw: 09-20-2022 End: 97-56-9908wlvedwrdukLSGDY D HIGHLANDERFacility:Q3Yxyih: 24-02-9510Lpumnulgj for preprocedural cardiovascular examinationDR TOPHER SAAVEDRA .[facility]Start: 74-39-6638Oaeyihzsr for preprocedural laboratory examinationDR TOPHER SAAVEDRA .[facility] HospitalStart: 25-49-3730Aezzhefgi for preprocedural respiratory examinationDR TOPHER SAAVEDRA .[facility] Start: 09-15-2022 End: 89-76-3338aqksnhfqcdVV TOPHER SAAVEDRA .Facility:Q8Irtyw: 09-15-2022 End: 37-79-0502Aijeyltcg for preprocedural laboratory examinationDR TOPHER SAAVEDRA .Facility:R6Ybozt: 09-06-2022 End: 12-94-3964Fhmdbms encounter procedureTopher SAAVEDRA [facility] start: 06-18-2022 End: 68-71-7077Khfoxds encounter procedureTopher SAAVEDRA [facility] start: 05-20-2022 End: 13-34-3621vnvquerbvfWXFAS D HIGHLANDERFacility:Z9Tchxz: 05-17-2022 End: 26-98-0333Kozstvb encounter procedurePaluciano SAAVEDRA [facility] start: 04-21-2022 End: 66-45-5303ezfjtahlkxNKOVX D HIGHLANDERFacility:C9Syohi: 04-21-2022 End: 43-91-5799Bdjcxsl encounter procedureMandy Schaefer [facility] start: 04-09-2022 End: 32-06-5312qcvedlszztCLCQT D HIGHLANDERFacility:K1Zjtmm: 03-31-2022 End: 87-36-1458Tzpseoh encounter procedureMandy Schaefer [facility] start: 03-22-2022 End: 39-17-4623baxiunbmccRKZUX D HIGHLANDERFacility:M6Olaxe: 03-03-2022 End: 97-10-9721Sjdaiil encounter procedureMandy Schaefer [facility] start: 02-01-2022 End: 10-14-9347Decgleg encounter procedureTopher SAAVEDRA [facility] start: 01-28-2022 End: 81-83-6212Ouqinpdybb [facility] Schedule [facility] MED ONCComment on above:Polycythemia (Primary Dx)Start: 01-18-2022 End: 57-21-6377eefsxjyormBW JORDAN DUNCAN .Facility:C2Rlnhd: 01-06-2022 End: 91-12-2252xkvybalsfxKWERG [facility]:U0Hzcfg: 12-21-2021 End: 40-89-6410Venlefq encounter procedurePatricbaljinder Ordoñez SAAVEDRA [facility] start: 11-23-2021 End: 61-89-7631Yecxazz encounter procedurePatricbaljinder Ordoñez [employer] [facility] start: 10-26-2021 End: 29-70-3634Liadvqy encounter procedurePatricbaljinder Ordoñez SAAVEDRA [facility] start: 09-28-2021 End: 00-33-0770Wvlrqdf encounter procedurePatricbaljinder Ordoñez SAAVEDRA [facility] start: 08-31-2021 End: 86-83-1688Izicafu encounter procedurePatricbaljinder Ordoñez SAAVEDRA [facility] start: 10-22-2020 End: 16-71-4847Pbuekwwvtw hospital visit by physicianMthz Med Onc Room 9 ScheduleMTHZ MED ONCComment on above:Polycythemia (Primary Dx)Start: 07-27-2019 End: 73-18-3224Xeqvytdlel hospital visit by physicianMthz Med Onc Room 9 ScheduleMTHZ MED ONCComment on above:Polycythemia (Primary Dx)Start: 03-13-2019 End: 80-49-0354Bokcgbkajl hospital visit by physicianMthz Med Onc Room 9 ScheduleMTHZ MED ONCComment on above:Polycythemia (Primary Dx)Start: 01-12-2019 End: 36-85-7403Mlbhpydfjx hospital [facility] physicianH[facility] Room 9 ScheduleELLENVILLE REGION[facility] MED ONCStart: 02-16-2018 End: 35-82-0211Auqqhtu encounterDEFAULT PHYSICIANFacility:[facility] Procedures DateProcedureProcedure DetailPerforming ClinicianStart: 91-45-7302XMH CBC WITH AUTO DIFFGeneric External Data ProviderStart: 82-22-7868DA FOOT RT MIN 3VGeneric External Data ProviderStart: 13-43-5233QN CHEST 2VGeneric External Data ProviderStart: 44-66-1500MXG CBC WITH AUTO DIFFGeneric External Data Provider Start: 72-28-6969DAU LIPID PROFILE (FASTING)Generic External Data ProviderStart: 83-07-6316BYQN LIVER PANELGeneric External Data ProviderStart: 09-18-2024 Creatinine other sourceEdarsh Duncan MD Work Phone: Start: 91-62-5340QW ECHO DOPPLER COMPLETEGeneric External Data ProviderStart: 33-67-1278UAH CBC WITH AUTO DIFFGeneric External Data ProviderStart: 94-14-7806OLQ TESTOSTERONEGeneric External Data Provider Start: 66-30-5922DB FAITH PERF SPECT REST STRGeneric External Data ProviderStart: 29-24-3605BTG LIPID PROFILE (FASTING)Generic External Data ProviderStart: 16-28-6929BjjzqjsmnlgsJucveyg WATERS Start: 15-66-7167YsbihjrxxxdRfpijg Rusher DPM Work Phone: Start: 34-56-4883spzo surgeryPaAudioCompass Start: 39-47-6179Ppatrdr of placement of stent for coronary artery diseaseS/P JORY - LCX & RCA (8832-1186-Xe. kabour)Mthz Schedule BACK SURGERYSynapSense Placement of stentPaAudioCompass RECTAL CANCER SURGERYPaAudioCompass RIGHT VEIN REMOVED FROM LEGPatrick SAAVEDRA Plan of Treatment DateCare ActivityDetailAuthorStart: 79-86-1983Ktfdkmwmp for malignant neoplasm of colonNODE HealthcareStart: 91-94-1971Aghtnket screeningDiabetes: Retinopathy ScreeningNODE HealthcareStart: 18-36-4556Pnqfa screening for proteinDiabetes: Urine Protein ScreeningNODE HealthcareStart: 09-11-2025 End: 39-71-2371Oicdzrb encounter zvdrxerko26/08/2026 9:00 AM EDT [facility] [facility] [address] [place] [address] Jordan Duncan MD [address] [address] (Fax)NOM Jose [address] [place], [place] [address]tart: 08-17-2025 End: 01-79-4322Bufautsbthrof metabolic 2000 panel - Serum or PlasmaComprehensive metabolic panel Lab Routine Type 2 diabetes mellitus with diabetic polyneuropathy, without long-term current use of insulin (HCC) Type 2 diabetes mellitus with diabetic microalbuminuria, without long-term current use of insulin (HCC) Essential hypertension Expected: 08/17/2025 (Approximate), Expires: 11/15/2025[facility] Work Phone: Comment on above:Expected: 08/17/2025 (Approximate), Expires: 11/15/2025Start: 08-17-2025 End: 29-67-4576Ffvuarlsik A1c/Hemoglobin.total in BloodHemoglobin A1c Lab Routine Type 2 diabetes mellitus with diabetic polyneuropathy, without long-term current use of insulin (HCC) Type 2 diabetes mellitus with diabetic microalbuminuria, without long-term current use of insulin (HCC) Expected: 08/17/2025 (Approximate), Expires: 11/15/2025NODE HealthcareComment on above: Expected: 08/17/2025 (Approximate), Expires: 11/15/2025Start: 08-17-2025 End: 24-55-0966Whnpt 1996 panel - Serum or PlasmaLipid panel Lab Routine Mixed hyperlipidemia Expected: 08/17/2025 (Approximate), Expires: 11/15/2025NODE HealthcareComment on above:Expected: 08/17/2025 (Approximate), Expires: 11/15/2025Start: 02-19-2026Medicare Annual Wellness (AWV)Medicare Annual Wellness (AWV)[facility] HealthcareStart: 95-64-3398Ivitbsobms A1c measurement Diabetes: Hemoglobin X4NIRML HealthcareStart: 04-09-2025 End: 50-31-8795Miqsvcq encounter rgthqbmyo65/04/2025 8:30 AM EST Office Visit [facility] [address] [place] [address] Brody Ibrahim DPM [address] [place] [address] [facility] PodiatryStart: 03-25-2025 End: 92-83-8350Vjktech encounter dtsxiehgd41/20/2025 4:00 PM EDT Office Visit [facility] [address] [place] [address] Brody Ibrahim DPM [address] [place] [address] [facility]rivedDA[facility] Rosendo PodiatryComment on above:ArrivedStart: 02-28-2025 DTaP/Tdap/Td Vaccines (2 - Td or Tdap)DTaP/Tdap/Td Vaccines (2 - Td or Tdap)NOM HealthcareStart: 14-11-9771HOB test (Diabetes, CKD 3-4, OR last GFR 15-59)GFR test (Diabetes, CKD 3-4, OR last GFR 15-59)[facility] HospitalStart: 25-94-1544FOBGR-19 Vaccine ( season)COVID-19 Vaccine ( season)NOM HealthcareStart: 36-30-1092Nbqnkvzsl vaccinationInfluenza Vaccine (#1)[facility] HealthcareStart: 38-64-6681Ctsflusxiy A1c measurementDiabetes: Hemoglobin V2DLOGY HealthcareStart: 10-26-2024 End: 40-40-1124Ozuymbe encounter yajembuws79/23/2025 1:00 PM EDT [facility] [address] [place] [address] phlebotomyELLENVILLE [facility] MED ONCComment on above:phlebotomyStart: 10-17-2024 End: 04-34-6594Wclbpqy encounter lcbfyqzxk26/14/2025 1:00 PM EDT Office Visit [facility] Part of [address] [address] Newton Stevenson MD [address] [place] [address] F/U polycythemia, anal cancerSOU[facility]WEST [facility] Part of [facility] HospitalComment on above:F/U polycythemia, anal cancerStart: 11-11-7078Mkknv screening for protein Diabetes: Urine Protein ScreeningNOMetropolitan Saint Louis Psychiatric CenterStart: 09-18-2024 End: 43-10-5899Fgrqvpg encounter procedureNOMS CI FM 100Comment on above: Essential hypertension (CMS/HCC); Microalbuminuria; Mixed hyperlipidemia (CMS/HCC); Type 2 diabetes mellitus with diabetic microalbuminuria, without long-term current use of insulin (CMS/HCC); Type 2 diabetes mellitus with diabetic polyneuropathy, without long-term current use of insulin (CMS/HCC)Start: 08-25-2024 End: 91-51-4610Lfurwsocpilkm metabolic 2000 panel - Serum or PlasmaComprehensive metabolic panel Lab Routine Type 2 diabetes mellitus with diabetic polyneuropathy, without long-term current use of insulin (CMS/HCC) Essential hypertension (CMS/HCC) Expected: 08/25/2024, Expires: 03/27/2025NOMetropolitan [facility] Louis [facility] Center Work Phone: Comment on above:Expected: 08/25/2024, Expires: 03/27/2025Start: 08-25-2024 End: 38-16-6731Ulcflgsxju A1c/Hemoglobin.total in BloodHemoglobin A1c Lab Routine Type 2 diabetes mellitus with diabetic polyneuropathy, without long-term current use of insulin (CMS/HCC) Expected: 08/25/2024, Expires: 03/27/2025NODE HealthcareComment on above:Expected: 08/25/2024, Expires: 03/27/2025Start: 08-25-2024 End: 88-63-7242Inrec 1996 panel - Serum or PlasmaLipid panel Lab Routine Mixed hyperlipidemia (CMS/HCC) Expected: 08/25/2024, Expires: 03/27/2025NODE HealthcareComment on above:Expected: 08/25/2024, Expires: 03/27/2025Start: 07-25-2024 End: 78-29-9568Azjhwnc encounter ismrnbdmr35/19/2025 11:00 AM EST Office Visit [facility] CI [address] [address] [place] [address] Jordan Duncan MD [address] [place] [address] Encounter for Medicare annual wellness exam; Advance directive in chart; Encounter for screening for other disorder; Screening for alcohol problem; Morbid (severe) obesity due to excess calories (CMS/[facility]); Body mass index (BMI) 40.0-44.9, adult ([facility] CI FM 100Comment on above:Encounter for Medicare annual wellness exam; Advance directive in chart; Encounter for screening for other disorder; Screening for alcohol problem; Morbid (severe) obesity due to excess calories (CMS/HCC); Body mass index (BMI) 40.0-44.9, adult ([facility])Start: 66-03-4161Sijryoahfg A1c measurementDiabetes: Hemoglobin K0IYQKH HealthcareStart: 12-12-2024Medicare Annual Wellness (AWV)Medicare Annual Wellness (AWV)NOMS HealthcareStart: 05-15-2024 End: 42-82-8684Hvfgzvb encounter lfrriiwss28/10/2024 10:15 AM EST Office Visit [facility] [address] [place] [id number] Brody Ibrahim DPM [address] [place] [id number] NOMS PODIATRYStart: 04-23-2024 End: 93-54-3785Hivcxhm encounter orodogsqb80/18/2024 11:00 AM EST Office Visit [facility] [address] [place] [phone] Brody Ibrahim DPM [address] [place] [address] NOMS PODIATRYStart: 04-09-2024 End: 76-66-5538Loabiav encounter rqpdqyjju66/04/2024 9:30 AM EST Office Visit [facility] FM [address] [facility] [address] [place] [address] Jordan Duncan MD [address] [place] [address] (Fax)[facility] CI FM 100Start: 03-29-2024 End: 03-53-5498Vdeyida encounter aivnqidli64/24/2024 1:00 PM EDT Office Visit [facility] [address] [place] [address] Brody Ibrahim DPM [address] [place] [address] ArrivedNOMS PODIATRYComment on above:ArrivedStart: 03-27-2024 End: 77-42-3508Damfipc encounter jvwpanjtc50/22/2024 2:00 PM EDT Office Visit [facility] FM [address] [address] Jordan Duncan MD [address] [place] [address] (Fax) Type 2 diabetes mellitus with diabetic polyneuropathy, without long-term current use of insulin (CMS/HCC); Essential hypertension (CMS/HCC); Microalbuminuria; Diabetic foot (CMS/HCC); Mixed hyperlipidemia (CMS/HCC); Adverse reaction to statin medication; Former smoker; Morbid obesity (CMS/HCC)NOMS FM 100Comment on above:Type 2 diabetes mellitus with diabetic polyneuropathy, without long-term current use of insulin (CMS/HCC); Essential hypertension (CMS/HCC); Microalbuminuria; Diabetic foot (CMS/HCC); Mixed hyperlipidemia (CMS/HCC); Adverse reaction to statin medication; Former smoker; Morbid obesity ([facility]/HCC)Start: 03-13-2024 End: 74-20-8400Fwwwlmb encounter eahonmqbb75/08/2024 9:45 AM EDT Office Visit [facility] [address] [place] [phone] Brody Ibrahim DPM [address] [place] [address] ArrivedNOMS PODIATRYComment on above:ArrivedStart: 61-20-1962CJWDC-19 Vaccine ( season)COVID-19 Vaccine ( season)Bon [facility] CenterStart: 42-62-2846Noupdkoqk vaccinationInfluenza Vaccine (#1)[facility] HealthcareStart: 57-97-7177Ihrypfkiey A1c measurementDiabetes: Hemoglobin A1C NOM HealthcareStart: 97-45-3089Vxueirbi screeningDiabetes: Retinopathy ScreeningNODE HealthcareStart: 58-70-9985IER test (Diabetes, CKD 3-4, OR last GFR 15-59)GFR test (Diabetes, CKD 3-4, OR last GFR 15-59)[facility]ENTERStart: 10-26-2023 End: 87-58-4835Fnovuqn encounter kzyzhkqkn30/22/2024 Office Visit Oncology Newton Suarez MD [address] [place], [place] [address] [facility]: 10-12-2023 End: 41-38-2363Uarnafk encounter vgctkadib93/08/2024 9:30 AM EDT Office Visit [facility] S FM [address] [place] [address] Jordan Duncan MD [address] [place] [address] (Fax)[facility] FMStart: 09-27-2023 End: 64-91-3572Cscjoun encounter uabjztggg14/23/2024 11:00 AM EDT Procedure Visit [facility] [address] [place] [address] Brody Ibrahim DPArin [address] [facility] [place], [place] [address] NOMS PODIATRYStart: 15-26-7950Cyfbfxfpgc A1c measurement Diabetes: Hemoglobin H9PUQBHCox MonettStart: 51-53-3246Pzjzjn Wellness Visit (Medicare)Annual Wellness Visit (Medicare)[facility]art: 10-20-2022 End: 74-59-1658Cqfcbzz encounter dzybdvpei12/17/2023 Office Visit Oncology Newton Suarez MD [address] [place], [place] [phone] [facility]: 62-76-6580Ymzgsbqlma A1c ahiydbheiapB7A test (Diabetic or Prediabetic)[facility]: 91-56-2655Czcncdfol vaccinationFlu vaccine (#1)[facility]ENTERStart: 76-54-2846Regml screening for proteinBON [facility]: 10-21-2021 End: 55-20-6422Neaaikk encounter pstmaarks19/18/2022 Office Visit Oncology Newton Suarez MD [address] [place], [place] [address] [phone] [facility]: 10-16-2021 COVID-19 Vaccine (4 - Booster for Pfizer series)COVID-19 Vaccine (4 - Booster for Pfizer series)[facility]ENTERStart: 38-70-7114Wzaoa panelLipidsChildren's Hospital of [facility]: 10-24-2019 End: 68-59-7606Jcdocr VisitTiffin [facility] Oncology SpecialistsStart: 07-31-2019 End: 84-09-2737Hevryzisyvx55/25/2020 [facility] Start: 04-30-2019 End: 90-64-2056Iyelgbfhggo40/25/2019 Appointment Infusion [facility]ELL[facility] Start: 87-26-0429Idbtqfndq vaccinationFlu vaccine (#1)[facility]art: 95-81-0615Twowpr Wellness Visit (AWV)Annual Wellness Visit (AWV)[facility]: 91-49-1173Vtouerusns measurementCreatinine Knowlarity CommunicationsMetrohealth [facility] [employer] Work Phone: start: 22-39-0942Wfymcocqct monitoringCreatinine monitoringMercer County Community Hospitalart: 95-73-0345Vjneunmro monitoringPotassium [facility], [place]Start: 65-17-6709B5A test (Diabetic or Prediabetic)A1C test (Diabetic or Prediabetic)[place], [place]: 42-65-2628Oamtqtxnsi A1c rueubqglpyyJ5Z test (Diabetic or Prediabetic)[facility]: 22-86-4078Vdiahbrak aortic aneurysm screeningAAA [facility]: 76-71-4506Xyqftfpfbrxm 65+ years Vaccine (1 of 2 - PCV13)Pneumococcal 65+ years Vaccine (1 of 2 - PCV13)[facility]: 75-49-1726Qngycylo Vaccine (2 of 3)Shingles Vaccine (2 of 3)[facility]: 25-90-5126Eealpg Wellness Visit (AWV)Annual Wellness Visit (AWV)[facility]: 83-42-2036Cicyxgrir B Vaccines (1 of 3 - Risk 3- dose series)Hepatitis B Vaccines (1 of 3 - Risk 3-dose series)[facility] Start: 81-78-5191Wgnhwsnggsp Syncytial Virus (RSV) or age 60 yrs+ (1 - Risk 60-74 years 1-dose series)Respiratory Syncytial Virus (RSV) or age 60 yrs+ (1 - Risk 60-74 years 1-dose series)[facility]: 62-74-3189Hiaoi cancer screen colonoscopyColon cancer screen colonoscopyMercy Health St. [facility]: 65-75-8700Omolhzzgw for malignant neoplasm of colonColon cancer screen colonoscopyMarymount Hospital Work Phone: start: 99-06-1491Czfjyoyb Vaccine (1 of 2)Shingles Vaccine (1 of 2)[facility]: 11-09-1444Qeasidaar for malignant neoplasm of colonBON [facility]: 42-58-6123BVoD/Tdap/Td vaccine (1 - Tdap)DTaP/Tdap/Td vaccine (1 - Tdap)[facility]: 53-85-5869Closvprwu A Vaccines (1 of 2 - Risk 2-dose series)Hepatitis A Vaccines (1 of 2 - Risk 2-dose series)[facility]: 65-71-3092Rqdvbwoen B vaccine (1 of 3 - Risk 3-dose series)Hepatitis B vaccine (1 of 3 - Risk 3-dose series)[facility]: 00-52-8245Zzkkeqit microalbuminuria test Diabetic microalbuminuria testMercy Health St. [facility]: 24-13-2961Joevyzmj retinal examDiabetic retinal examChildren's Hospital of [facility]: 02[birth year]10-1970 Glaucoma screeningDiabetic retinal examChildren's Hospital of [facility]: 02-10-1970 Hepatitis C screeningHepatitis C screenChildren's Hospital of [facility]: 02-10-1970 Urine screening for proteinDiabetic Alb to Cr ratio (uACR) [facility]: 56-35-1260Pkflwwxakw ScreenDepression ScreenChildren's Hospital of The [facility]: 89-70-6302IYvK/Tdap/Td vaccine (1 - Tdap)DTaP/Tdap/Td vaccine (1 - Tdap)[facility]: 02-10-1960[object Object]Diabetic foot examMercy Health St. [facility]: 20-36-9814Pmkjbukz foot examinationDiabetic foot examBON [facility]: 96-90-9508Zlslomgj retinal examDiabetic retinal exam [facility]: 55-58-0253Iuddu panelBON [facility]: 46-45-9102Ojojr screenLipid [facility]: 59-08-2413Bldaag Wellness Visit (AWV)Annual Wellness Visit (AWV)[facility]: 24-28-7544Tvalzvxka C screenHepatitis C [facility]: 40-39-0514Hxpsddojv C screeningHepatitis C [facility] Work Phone: start: 92-63-7776Tkzhitgdz for malignant neoplasm of colonDA[facility] Healthcare End: 59-86-4725Xjweywyomz therapeuticPhlebotomy therapeutic Procedures Routine One Time for 1 Occurrences starting 07/05/2024 until 07/05/2024on [facility] Work Phone: Comment on above:One Time for 1 Occurrences starting 07/05/2024 until 07/05/2024 Immunizations Immunization DateImmunizationNotesCare RyejjzphVoshmdsv21-93-7021VCR vaccine preF3, recombinantPatrick Zencoder [facility]08-28-2025RSV, recombinant, protein subunit RSVpreF, adjuvant reconstitu, 120mcg/0.5mL, PF (Arexvy)Jordan Duncan MD Work Phone: [facility]ettQllpfurhdu28-76-4436fstmsnt toxoid, reduced diphtheria toxoid, and acellular pertussis vaccine, adsorbedPatrick Zencoder [facility]08-28-2025zoster vaccine recombinantPatrick Zencoder [facility]10-23-2024influenza, seasonal, injectableSteven Rusher DPM Work Phone: [facility]ettOqpwscbcny47-53-5519Uzyshytz trivalent influenza vaccine, adjuvanted, preservative freeSteven Rusher DPM Work Phone: [phone]ettKmscwkzmly78-37-2116lpwkcpcef virus vaccine, unspecified formulationGeneric ProviderExec[facility]09-25-2023influenza virus vaccine, unspecified formulationGaAudioCompass [facility]09-25-2023Influenza, Seasonal, Quadrivalent, AdjuvantedSteven Rusher DPM Work Phone: [phone]ettHwaeoqkjta11-98-0544gcannqquo virus vaccine, unspecified formulationGaAudioCompass [facility]11-11-2022Influenza, Seasonal, Quadrivalent, AdjuvantedSteven Rusher DPM Work Phone: [phone]ettAebwnarhhh00-79-9467Jfmxgth Bivalent Booster VaccinationSteven Rusher DPM Work Phone: [phone]ettCouoytvqbu30-37-8189Dtlizyi SARS-CoV-2 50mcg/0.5mL BoosterSteven Rusher DPM Work Phone: [phone]ettGhegxdscxc78-74-6898Bnjibu Bivalent Booster 12 Years And OlderSteven Rusher DPM Work Phone: [phone] [place], [place] [address]Fhykemclmu02-18-0442TOUT-YwW-0 (COVID-19) mRNAMUL.ORD!m19375Psdarwv WATERS [facility]01-13-2022SARS-CoV-2 (COVID-19) mRNA BNT-162b2 vaxGaAudioCompass [facility]12-01-2021influenza virus vaccine, unspecified formulationGaAudioCompass [facility]12-01-2021Influenza, Seasonal, Quadrivalent, AdjuvantedSteven Rusher DPM Work Phone: [facility]ettFsjzvbnunt59-26-5715MMJL-UlZ-2 (COVID-19) Ad26 vaccine, recombinantPatrick Zencoder [facility] [id number]-CmZ-0 (COVID-19) mRNA BNT-162b2 vax Topher Zencoder [facility]03-25-2021SARS-CoV-2, UnspecifiedSteven Rusher DPM Work Phone: [facility]ettWdpmwmnmaj39-70-3037Xachyi Purple Cap SARS-CoV-2 VaccinationSteven Rusher DPM Work Phone: [facility]ettPstdgdiztg42-63-0838CQBL-VaQ-3 (COVID-19) mRNA BNT-162b2 vaxSynapSense [facility] HospitalComment on above:Result Comment: 2022-11-05: XRR4165-55-7131NIYB-NgP-2, UnspecifiedSteven Rusher DPM Work Phone: [facility]ettSindnbpddk29-70-5196Jcrxsa Purple Cap SARS-CoV-2 VaccinationSteven Rusher DPM Work Phone: [facility]ettLaasmfyjiq63-62-0060AWUN-CmK-2 (COVID-19) Ad26 vaccine, recombinantAmurak Zencoder [facility] 10799046-39-6802ccpcfykwo virus vaccine, unspecified formulationPaAudioCompass [facility]10-17-2020Influenza, Seasonal, Quadrivalent, AdjuvantedSteven Rusher DPM Work Phone: [facility]ettHrfbblzxqd88-52-9663vgciccqlvlrx conjugate vaccine, 13 valentPatrick SAAVEDRA [facility] 09954021-37-9147shzsestrx virus vaccine, unspecified formulationPaAudioCompass [facility]09-30-2019influenza, high dose seasonal, preservative-freeSteven Rusher DPM Work Phone: [facility]ettYuhfxwarhh80-30-1447qvlrvetkxznc polysaccharide vaccine, 23 valentPatrick Zencoder [facility]09-29-2019Influenza, High-dose Seasonal, Quadrivalent, Preservative Free Brody Rusher DPM Work Phone: [facility]ettBuuorjpeqf48-52-0932pukvakmjmvvz polysaccharide vaccine, 23 valentSteven Rusher DPM Work Phone: [facility]ettVmdqbwgeej76-55-8094upvymrzjr virus vaccine, unspecified formulationSynapSense [facility]09-28-2018influenza, high dose seasonal, preservative-freeSteven Rusher DPM Work Phone: [facility]ettSabotlvglk13-29-9060kbgsufxigimb conjugate vaccine, 13 valentPaAudioCompass [facility]ue09-28-2018pneumococcal polysaccharide vaccine, 23 valentSteven Rusher DPM Work Phone: [facility]Ozswpdyoqb10-47-1818lzjzfloviqdh conjugate vaccine, 13 valentSteven Rusher DPM Work Phone: [facility]ettFczgfaxwdi73-18-7304gufdjuzvk virus vaccine, unspecified formulationSynapSense [facility]11-01-2017influenza, injectable, quadrivalent, preservative freeSteven Rusher DPM Work Phone: [facility]ettOgonafeihm41-07-0635jevpjqrynytp polysaccharide vaccine, 23 valentPatrick SAAVEDRA [facility]07-01-2017zoster vaccine, livePatrick SAAVEDRA [facility]10-01-2016Influenza Vaccine, unspecified formulationEssentia Health10-01-2016influenza virus vaccine, H5N1, A/[place] (national stockpile)Brody Rusher DPM Work Phone: [facility]ettQvmaofbaxh53-77-8376hthfjxykz virus vaccine, unspecified formulationSteven Rusher DPM Work Phone: [facility]ettUesacfpkyi97-66-8218Txuzxktso, High-dose Seasonal, Quadrivalent, Preservative FreeSteven Rusher DPM Work Phone: [facility]ettZnrvuiyhmu49-75-8589hpdbfwpbg, unspecified formulationPatrick SAAVEDRA [facility]08-19-2016influenza virus vaccine, unspecified formulationPatrick SAAVEDRA [facility]08-19-2016influenza, injectable, quadrivalent, preservative freeSteven Rusher DPM Work Phone: [facility]ettAwkgtilzct61-89-4430mrnspigeenws polysaccharide vaccine, 23 valentPatrick SAAVEDRA [facility] 10-029089-70-1135psdxjdola virus vaccine, unspecified formulationPatrick SAAVEDRA [facility]10-18-2014influenza, seasonal, injectableSteven Rusher DPM Work Phone: [facility]ettPkpdceivuc52-69-9310elpqhijoy virus vaccine, unspecified formulationPatrick SAAVEDRA [facility]11-01-2013influenza, seasonal, injectableSteven Rusher DPM Work Phone: [facility]ettOxzcxqndrs40-30-6413mnkclv vaccine, livePatrick SAAVEDRA [facility]10-31-2013zoster vaccine, liveSteven Rusher DPM Work Phone: [facility]ettUmapknxhqw91-12-2413lcjto lmjmmuldi-M7B6-01, preservative-free, injectableSteven Rusher DPM Work Phone: [facility] Payers DatePayer CategoryPayerPolicy [id number] Health [id number] [id number] 2017Medicare xxxxxxxxxxx [id number] 1960Medicare [id number] 1.2.840.210071.1.13.239.2.7.3.404534.46266-73-1818Nsshaek Health [id number] 1.2.840.345872.1.13.239.2.7.3.615241.46145-38-6102Dmoxypx [id number] 2.16.840.1.642383.3.57[id number] 2.16.840.1.724420.3.579.2.60113-97-8295Cyrssfc3594683 2.16.840.1.944742.3.579.2.47757-81-4175Vxvqrnu0614039 2.16.840.1.869370.3.579.2.39247-12-2711Ywlgmig9536356 2.16.840.1.754460.3.579.2.41601-81-7405Uqkccow8412709 2.16.840.1.134403.3.579.2.12518-60-4257Edrxiti7693574 2.16.840.1.883529.3.579.2.12226-50-7836Czzmzni6382910 2.16840.1.735167.3.579.2.19482-61-1172Xgiooqm5851889 2.16.840.1.623456.3.579.2.55737-25-1144Hdziakx7316097 2.16.840.1.962427.3.579.2.33050-90-1982Dobryhn6089109 2.16.840.1.865605.3.579.2.52566-40-2787Dscnyvp3696432 2.16.840.1.398421.3.579.2.58139-82-6042Tieoatz68236891 2.16.840.1.991546.3.579.2.40041-12-3274Srattib28032992 2.16.840.1.972586.3.579.2.42497-90-6671Vtvfwto94086064 2.16.840.1.735141.3.579.2.34299-47-6680Xtjvfkm98002177 2.16.840.1.219873.3.579.2.44030-95-7890Ivwlszj87507440 2.0.1.402342.3.579.2.14254-05-2889Bxvdztf29851636 2..1.158276.3.579.2.71091-19-0799Llgrkqo26649851 2..1.219061.3.579.2.66355-14-8743Wtjxtdq03654667 2..1.437780.3.579.2.57940-50-9208Huwquys14918409 2..1.600164.3.579.2.08475-97-8525Jpllxui95700315 2..1.150945.3.579.2.20353-26-3118Lrpolrf26710594 2..1.210364.3.579.2.716115-82-2751Lxykzlt66957004 2..1.638812.3.579.2.207049-13-1597Unwgujt69539559 2..1.437864.3.579.2.372045-58-0623Zdserkm7338926 2..1.841116.3.579.2.513930-74-6408Ugfinyj1878094 2..1.604966.3.579.2.979736-05-3154Sswivky0505846 2..1.119633.3.579.2.543599-74-3829Qwupoah9087339 2.0.1.557522.3.[id number] 2..1.229624.3.579.2.531 Social History DateTypeDetailFacilityStart: 10-18-2018 End: 35-76-6662Ibashmb smoking status NHISFormer smokerL[place], [place] Start: 08-31-1979 End: 76-72-8522Qhdkide of tobacco useCurrent smokerLeb[place], [place]Start: 10-18-2018 End: 83-19-9766Ckbhgxfjfj smoked current (pack per day) - ReportedNODE HealthcareStart: 10-18-2018 End: 92-90-2773Emaelmq intakeNoMercer County Community Hospitalart: 01-23-2014 End: 00-93-6049Yyfyctu Commentquit smoking in [address]: 28-57-8645Fuz Assigned At BirthNot on fileLebanon, KYStart: 10-18-2018 End: 74-75-4135Wnddliv intakeCurrent non-drinker of alcohol (finding)[facility] Hospitalart: 10-22-2020 End: 00-76-1906Biribww use and exposureNever usedSumma Healthart: 01-18-2022 End: 95-51-2486Pywdoujx to SARS-CoV-2 (event)Not sureSumma Healthart: 08-31-1979 End: 13-71-8464Fiwfahr of tobacco useCigarette SmokerKITTY QUIROZ [facility] Work Phone: start: 05-17-2023 End: 70-82-8331Vfirads intakeCurrent drinker of alcohol (finding)[facility] How often to you have a drink containing alcohol?2-4 times a monthNOMS HealthcareHow many standard drinks containing alcohol do you have on a typical day?1 or 2NOMS HealthcareHow often do you have 6 or more drinks on 1 occasion? NeverNOMS HealthcareStart: 82-07-7363Uzlxudtzc92IEVW HealthcareStart: 04-19-2023 Tobacco CommentLast smoked : > 10 yearsNODE HealthcareStart: 00-96-7170Haprugz Comment1-2 drinks 2-4 x a month in the past year, Caffeine intake: 1-2 cups per day coffeeCox MonettStart: 17-89-3741Drttva identityIdentifies as male gender (finding)[facility] smoking status NHISUnknown if ever smoked [facility] Work Phone: Start: 64-23-3395JwlEzhw (finding)[facility] Centertart: 87-12-0846Zew Assigned At [facility] Hospitaltart: 64-87-0369Iprkvyy smoking statusNeverExecutive Urology of [facility] Campusexual OrientationExec[facility] Functional Status BctgBwovulwfvrAviyikTypinmxc08-24-9430Vtxgbbx Health Questionnaire 2 item (PHQ- 2) [Reported][facility]ettSsrxubbuub49-65-4302Vkntnrr Health Questionnaire 2 item (PHQ- 2) [Reported][facility]ettTrnyfqnpcl20-32-8613Iogcxip Health Questionnaire 2 item (PHQ- 2) [Reported][facility]ettCgahkhdjpk89-22-3572Sognlcolyv StatusN/AExec[facility] of [facility]07-01-2024Functional StatusN/AExec[facility]01-15-2024Functional StatusN/A [facility]06-02-2023Functional StatusN/AExec[facility]01-13-2023 Functional StatusN/AExec[facility] 13-23-7287Tklroybrxn StatusN/AExec[facility]08-29-2022Functional StatusN/AExecutive [facility] of [facility] Clinical Notes 10-22-2020 to 04-09-2025 Note Date & ZfzvGabtDmvxezjn68-51-3019 History of Present illness Narrative* Brody Ibrahim, [...] 03/2017 lesions on bottom of both feet, [facility] [place] OTHER SURGICAL HISTORY 4 stents Geraldo Stafford - 1997 OTHER SURGICAL HISTORY rectal cancer; surgery, chemo TX and radiation [place]. OTHER SURGICAL HISTORY 09/30/2022 Dorsal Slit, RADHA Saavedra TOE AMPUTATION Right 01/01/2025 right delayed primary [...] Measurements obtained in the weight-bearing position, utilizing [address] device. Foam impressions obtained simulated weight-bearing. Patient [...] understanding. Brody Ibrahim DPM documented in this encounterCox MonettMqcesnmxvm00-99-3331 History of Present illness Narrative* Brody Ibrahim [...] Dr. Dakota YARBROUGH 03/19/25, A1C: 6.4, BS: 130, ). HPI [...] 03/2017 [facility] OTHER SURGICAL HISTORY 4 stents Geraldo [...] understanding. Brody Ibrahim DPM documented in this [facility]10-20-2025 Instructions* Patient Instructions* Brody Ibrahim DPM - 03/25/2025 4:00 PM EDT As noted documented in this [facility]10-14-2025 History of Present illness Narrative* Jrodan Duncan MD - 03/19/2025 9:00 AM EDT [...] sugars: BGs consistently in an acceptable range. GWENDOLYN Sanchez complains of heartburn. This has been associated [...] without long-term current use of insulin (HCC) Chronic problem, stable, to goal. He is [...] microalbuminuria, without long-term current use of insulin ([facility]) - Comprehensive metabolic panel; Future - Hemoglobin [...] statin 7. Former smoker 8. Morbid obesity ([facility]-H[facility]) Encouraged lifestyle changes. We did talk [...] substitutions may have occurred. documented in this encounterCox MonettJwugbuynjn67-08-3173 Hospital Discharge instructions Patient Education 02/08/2025 08:40:53 [...] urethra. Follow these instructions at home: Take ylep-gxl-idkmrwq and prescription medicines only as told by [...] provider. Document Revised: 12/09/2021 Document Reviewed: 12/09/2021 Feedback Patient Education 2023 [employer]. Follow Up Care 01/14/2025 08:10:35 With:KERI NOLASCO, Topher Ordoñez, URL Address: [address] [place], [place] [address] [address] When: Unknown Comments:6 mos [facility] 09-05-2025 NotePatient Education Urology Benign Prostatic [...] Follow these instructions at home: ??? Take wwff-vqc-ccovkyx and prescription medicines only as told by [...] symptoms do not get (more content not included)...[facility]07-18-2025 NotePatient is here for surgery clearance. Patient is having right 5th hammer toe removed. Patient states he feels pretty good, patient is able to every day chores. Patient denies cardiac symptoms at this [facility] NoteSUBJECTIVE Reason for Visit: Juan Miguel Jennings is a 74 y.o. year old male patient being seen for surgical clearance. HPI: Juan Miguel Jennings is a 74 y.o. year old male with significant medical history of CAD status post [place] with stenting procedures in the past (2006, most recent heart cath 2013 nonobstructive CAD patent stents), hypertension, MO, hyperlipidemia, [...] needed. 07/16/2024 office visit (Dr. Huddleston): Juan Migule Jennings is a 74 y.o. year old male patient being seen for 3 mo follow up CAD. Stress test, echo, and lipid panel were all done in May 2024. He was started on isosorbide and amlodipine last month by Dianne Clemons CNP. Patient called the office last week c/o myalgias, fatigue, and dizziness after starting those medications. He was advised by Dainne to hold amlodipine to see if that [...] is normal; visually estimate (more content not included)...[facility]06-30-2025 Telephone encounter Note* Telephone Encounter - Laisha Castaneda - 12/03/2024 8:18 AM EDT Bret called requesting a refill on his cyclobenzaprine (Flexeril) [facility] [place] [id number] Miscellaneous Notes* Telephone Encounter - Laisha Castaneda - 12/03/2024 8:18 AM EDT Bret called requesting a refill on his cyclobenzaprine (Flexeril) 10 MG to [facility] in [place] documented in this encounterCox [id number] Telephone encounter Note* Telephone Encounter - Jordan Duncan MD - 10/18/2024 12:45 PM EDT Reviewed in prescription sent. [id number] Miscellaneous Notes* Telephone Encounter - Jordan Duncan [...] is asking for these to go to [facility] in [place]. documented in this [facility]05-15-2025 Telephone encounter Note* Telephone Encounter - Laisha [...] is asking for these to go to [facility] in [place]. [id number] History of Present illness Narrative* Jordan Duncan [...] file prior to visit. 1. Essential hypertension (CMS/[facility]) (Primary) Chronic problem, stable, to [...] Exclusionary measure for HEDIS. documented in this encounterCox [id number] History of Present illness Narrative* Jordan Duncan [...] the morning. cholecalciferol (Vitamin D-3) 50 MCG (1999) tablet Take by mouth. cyclobenzaprine (Flexeril) 10 [...] Medicine) Jordan Duncan [facility] as Referring Physician (Orthopaedic Surgery) [...] Yes Vision Screening: Yes, patient sees regular probate lawyer/radioisotope technician Hearing Screening: Yes, concerned about hearing loss Cognitive Screening Self Assessment: No concerns rasied by family members, friends, or caretakers Three Word Registration: Zakiya Decker, Finger Clock Drawing: Normal Clock - 2 Three Word Recall: 2/3 words correct - 2 Total Score (0-5 Points): 4 Advance Care Planning Do you have a living will?: Yes Do you have a medical power of estate attorney?: Yes Who is your medical power of estate attorney?: Mary Yancey- Daughter Objective : BP [...] Morbid (severe) obesity due to excess calories ([facility]) Patient has lost some weight but with his comorbid conditions he still meets the criteria for morbid obesity. 6. BMI 39.0-39.9,adult Defines the morbid obesity 7. Type 2 diabetes mellitus with diabetic polyneuropathy, without long-term current use of insulin ([facility]) Chronic problem, stable, monitored longitudinally. 8. Type 2 diabetes mellitus with diabetic microalbuminuria, without long-term current use of insulin ([facility]) Chronic problem, stable, monitored longitudinally. 9. Type 2 diabetes mellitus with foot ulcer (CODE) ([facility]) Chronic problem, stable, monitored longitudinally. Primarily managed by Podiatry 10. Non-pressure chronic ulcer of other part of unspecified foot with unspecified severity ([facility]) Chronic problem, stable, monitored longitudinally.Primarily managed by Podiatry 11. Partial nontraumatic amputation of right foot ([facility]) Chronic problem, stable, monitored longitudinally.Primarily managed by Podiatry 12. Partial nontraumatic amputation of foot, left (CMS/HCC) Chronic problem, stable, monitored longitudinally.Primarily managed by Podiatry 13. Atherosclerosis of [place] coronary artery of [place] heart without angina pectoris (CMS/HCC) Chronic problem, [...] on July 25, 2024 documented in this encounterCox [id number] NoteUT Cardiology - [facility] Subjective Juan Miguel Jennings [...] of colon cancer Testicular hypofunction Hx of intermission coordinator use of blood thinners Internal derangement of [...] man with prior history of CAD, s/p [place] and stenting procedures in the past. He [...] on the left s (more content not included)...[facility]01-30-2025 History of Present illness Narrative* Luh Hoffman [...] Denies any dizziness. documented in this encounterBon [facility] Telephone encounter Note* Telephone Encounter - Jordan Duncan MD - 06/18/2024 7:50 AM EST [facility]cription sent [id number] Miscellaneous Notes* Telephone Encounter - Jordan Duncan MD - 06/18/2024 7:50 AM EST Prescription sent * Telephone Encounter - Laisha Castaneda - 06/18/2024 7:38 AM EST Bret left a message requesting a refill on his Famotidine to [facility] in [place]. documented in this encounterCox [id number] Telephone encounter Note* Telephone Encounter - Laisha Castaneda - 06/18/2024 7:38 AM EST Bret left a message requesting a refill on his Famotidine to [facility] in [place]. [id number] NoteContacted patient to discuss lipids management. Reviewed mechanism of action, side effects, and administration of Repatha with patient; pt agreeable to start. Will send RX to assess costs. Of note, pt may qualify for patient assistance foundation. Will fill out paperwork and send to Cardiology to assist in obtaining signature and income documents. Iron Bess PharmD Cardiology Outpatient Clinical Pharmacist 06/11/24[facility]01-03-2025 NoteApplication for Repatha Safety [employer] filled out for patient. Requires patient signature. Will notify Cardiology instructional support services director to coordinate signature by patient. Application uploaded to media. Patient will come to Cardiology clinic to sign. Irno Bess PharmD Cardiology Outpatient Clinical Pharmacist 06/14/24[facility]01-03-2025 NotePharmD Cardiology Consult - Lipids Provider: Dr. Huddleston Department: Cardiology Juan Miguel Jennings is a 74 y.o. male with PMH of CAD s/p [place] and stents, HTN, HLD, MO w/ CPAP, [...] Iron Bess PharmD Cardiology Outpatient Clinical Pharmacist 06/11/24[facility]12-16-2024 Hospital Discharge instructions Patient Education 05/21/2024 12:15:54 [...] your health care provider. General instructions Take gtaz-oju-qrywuyh and prescription medicines only as told by [...] provider. Document Revised: 02/09/2021 Document Reviewed: 02/09/2021 Feedback Patient Education 2023 [employer]. Follow Up Care 02/27/2024 09:12:26 With:KERI NOLASCO, Topher Ordoñez, URL Address: [facility] [address], [place] [address]- When: Unknown [facility] 12-16-2024 Evaluation + Plan note Diagnostic Tests Pending * Testosterone Level Total 05/21/24 * CBC w/ Auto Diff 05/21/24 [facility] [place] 12-16-2024 NotePatient Education Obstetrics and Gynecology Overactive [...] health care provider. General instructions ??? Take zkfa-yhb-oqsstfj and prescription medicines only as told by [...] you drink, and whe (more content not included)...[facility]12-10-2024 History of Present illness Narrative* Brody Ibrahim DPM - 05/15/2024 10:15 AM EST Images from the original note were not included. Subjective Patient ID: Juan Miguel Jennings is a 74 y.o. male who presents for Diabetic shoe check (Juan Miguel Jennings is a 74 y.o. male who presents diabetic shoe check. PCP: Dr. Dakota YARBROUGH 03/27/24, A1C: 6.4 (5),BS: 132 SS: 14.). HPI Three-week initial assessment [...] understanding. Brody Ibrahim DPM documented in this [facility]12-10-2024 Instructions* Patient Instructions* Brody Ibrahim DPM - 05/15/2024 10:15 AM EST As noted documented in this [facility]11-27-2024 NoteCardiovascular Medicine [facility] SUBJECTIVE Chief Complaint Patient presents with Coronary Artery Disease Hypertension Juan Miguel Jennings is a 74 y.o. male here for follow-up. HPI PMHx: CAD s/p [place] and stenting, HTN, HLD, MO and wears [...] of colon cancer Testicular hypofunction Hx of intermission coordinator use of blood thinners Internal derangement of [...] , Rfl: Physical Exa (more content not included)...[facility] 05-02-2024 NotePatient here for 1 year follow [...] flatus. All other systems reviewed and are negative.[facility] 04-23-2024 History of Present illness Narrative* Brody Ibrahim DPM - 04/23/2024 11:00 AM EST Images from the original note were not included. Subjective Patient ID: Juan Miguel Jennings is a 74 y.o. 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 male who presents for Foot Callouses. PCP: Dr. Dakota YARBROUGH 03/27/24, A1C: 6.4 (5/), BS: 132SS: 14. ). HPI Presents for [...] RADHA Saavedra TOTAL KNEE ARTHROPLASTY Right 2014 NauAlexsander witt TOTAL KNEE ARTHROPLASTY Left 05/25/2021 PER [...] understanding. Brody Ibrahim DPM documented in this encounterCox [id number] Instructions* Patient Instructions* Brody Ibrahim DPM - 04/23/2024 11:00 AM EST Instructions as noted documented in this encounterCox [id number] Telephone encounter Note* Telephone Encounter - Chata Polanco - 04/09/2024 3:53 PM EST Custom orthotics arrived drom Dr Gruber [id number] Miscellaneous Notes* Telephone Encounter - Chata Polanco - 04/09/2024 3:53 PM EST Custom orthotics arrived drom Dr Gruber documented in this encounterCox [id number] History of Present illness Narrative* Brody Ibrahim [...] understanding. Brody Ibrahim DPM documented in this [facility]10-24-2024 Instructions* Patient Instructions* Brody Ibrahim DPM - 03/29/2024 1:00 PM EDT As noted documented in this [facility]10-22-2024 History of Present illness Narrative* [...] consistent withHgb A1C. Also this is a nufr-ov-bvck visit for consideration for diabetic shoes. Patient [...] indicated. I certify that I had a iaki-du-fmym encounter with this patient at todays office visit. Due to thismedical condition the patient requires DME. I certify that based on my findings The DME ordered is medically necessary for this patient. This has been discussed with the patient and/or their outside medical sales representative and mutually agreed upon. See [...] stratification for cardiovascular disease. 10. Essential hypertension ([facility]/HCC) In prescribing a renewal to their current [...] - Comprehensive metabolic panel 11. Mixed hyperlipidemia ([facility]) - Lipid panel; Future - Lipid panel 12. Adverse reaction to statin medication Diagnosis for exclusion for HEDIS measures for both diabetes with statin and mixed dyslipidemia with statin. 13. Former smoker Continue nonsmoking 14. Morbid obesity ([facility]/HCC) Continue lifestyle changes as able documented in this encounterCox [id number] History of Present illness Narrative* Brody Ibrahim, KATLIN - 03/13/2024 9:45 AM EDT Images from [...] 03/2017 lesions on bottom of both feet, [facility] [place] OTHER SURGICAL HISTORY 4 stents Geraldo Stafford - 1997 OTHER SURGICAL HISTORY rectal cancer; surgery, chemo TX and radiation TX. OTHER SURGICAL HISTORY 09/30/2022 Dorsal Slit, Saavedra, [facility] TOTAL KNEE ARTHROPLASTY Right 2014 NauAlexsander witt TOTAL KNEE ARTHROPLASTY Left 05/25/[address] HENSON Family History Family History Problem Relation Name Age of Onset Heart disease Mother Diabetes Mother Heart disease Father Diabetes Brother Colon cancer Brother Objective Physical Exam General assessment. Alert and oriented. Pleasant disposition. Presents wearing current DriBnta Comfort therapeutic footwear with custom orthoses. Vascular: [...] understanding. Brody Ibrahim DPM documented in this encounterCox [id number] Instructions* Patient Instructions* Brody Ibrahim DPM - 03/13/2024 9:45 AM EDT As noted documented in this encounterCox [id number] Hospital Discharge instructions Patient Education 12/05/2023 11:29:39 [...] therapy. Follow these instructions at home: Take fhii-hoj-gxxaucz and prescription medicines only as told by [...] provider. Document Revised: 01/22/2021 Document Reviewed: 01/22/2021 [employer] Patient Education 2022 [employer]. Follow Up Care 12/05/2023 07:35:26 With:Topher SAAVEDRA MD, URL Address: [facility] [address] [place] [address]- [phone] When: Unknown [facility] 06-03-2024 Hospital Discharge instructions Follow Up Care 11/07/2023 08:41:09 With:Topher SAAVEDRA MD, URL Address: [facility] [address] [place] [address]- [phone] When: Unknown [facility] 02-13-2024 History of Present illness Narrative* Brody Ibrahim DPM - 07/19/2023 10:30 AM EST Images from the original note were not included. Subjective Patient ID: Juan Miguel Jennings is a 73 y.o. male who presents for Nail care (Juan Miguel Jennings is a 73y.o. male who presents for Nail care and discuss inserts. Pt relates recently saw Dr Hargrove right foot ulcer, which has improved. Dr. Ruzi 05/17/2023 BS 121 A1C 6.0(04/2023)/ SS14). HPI [...] 2023; effectively healed following treatment at [facility] wound Center. Currently relates no bleeding or [...] right foot; effectively managed at [facility] wound care center. Care plan: conservative [...] understanding. Brody Ibrahim DPM documented in this [facility]02-13-2024 Instructions* Patient Instructions* Brody Ibrahim DPM - 07/19/2023 10:30 AM EST As noted documented in this [facility]01-15-2024 Hospital Discharge instructions Patient Education [...] therapy. Follow these instructions at home: Take xfrr-avr-skpmxkf and prescription medicines only as told by [...] provider. Document Revised: 01/22/2021 Document Reviewed: 01/22/2021 Feedback Patient Education 2022 [employer]. Follow Up Care 02/08/2023 12:23:35 With:KERI NOLASCO, Topher Ordoñez, URL Address: [facility] [address] , [place] [address]- [phone] When: Unknown Comments:6 mos w/ PSA and T level (pt to also get PSA now) [facility] [place] 06-02-2023 Hospital Discharge instructions Patient Education 11/05/2022 [...] urethra. Follow these instructions at home: Take zzsb-zlc-hwamdcx and prescription medicines only as told by [...] provider. Document Revised: 12/09/2021 Document Reviewed: 12/09/2021 Feedback Patient Education 2022 [employer]. Follow Up Care 05/17/2022 10:46:35 With:KERI NOLASCO, Topher Ordoñez, URL Address: [facility] [address] , [place] [address]- When: Unknown [facility] 05-31-2023 History of Present illness Narrative* [...] to see for visit documented in this encounterBON [employer] Work Phone: [phone]) 543-849104-12-2023 NoteEXAM: XR CHEST 2 V HISTORY: Pre-surgery evaluation COMPARISON: None. TECHNIQUE: PA and lateral views of the chest. FINDINGS: The cardiomediastinal silhouette is normal. No focal consolidation is identified. There is no pneumothorax. No pleural effusion is noted. The osseous structures are intact. IMPRESSION: No acute cardiopulmonary process. Electronically authenticated by: DARRIUS BOLTON Date: 2022-09-15 12:26[facility]01-13-2023 Hospital Discharge instructions Patient Education 06/18/2022 09:17:57 [...] urethra. Follow these instructions at home: Take pmab-qtx-rrztplm and prescription medicines only as told by [...] 05/23/2006 Document Revised: 04/17/2019 Document Reviewed: 06/27/2017 Feedback Patient Education 2020 [employer]. Follow Up Care 06/14/2022 09:33:13 With:KERI NOLASCO, Topher Ordoñez, URL Address: [address] [place] [id number]- When: Unknown [facility] [place] 12-12-2022 Hospital Discharge instructions Patient Education 05/17/2022 [...] urethra. Follow these instructions at home: Take itff-kgt-bolxtwt and prescription medicines only as told by [...] 05/23/2006 Document Revised: 04/17/2019 Document Reviewed: 06/27/2017 Feedback Patient Education 2019 [employer]. Follow Up Care 04/21/2022 09:42:50 With:KERI NOLASCO, Topher Ordoñez, URL Address: [facility] [address] , [place] [address]- When: Unknown [facility] 10-18-2022 NotePROCEDURE: XR FOOT RT MIN [...] Electronically authenticated by: BRODY PAYAN Date: 2022-03-23 06:26[facility]08-29-2022 Hospital Discharge instructions Patient Education 02/01/2022 10:35:19 [...] urethra. Follow these instructions at home: Take apna-oyq-mhzmdyy and prescription medicines only as told by [...] 05/23/2006 Document Revised: 04/17/2019 Document Reviewed: 06/27/2017 Feedback Patient Education 2020 [employer] Follow Up Care 08/03/2021 15:20:11 With:KERI NOLASCO, Topher Ordoñez, URL Address: [address] [place] [id number]- When: Unknown [facility] 05-19-2021 History of Present illness Narrative* Torie Lopez, RN - 10/22/2020 11:30 AM EDT 1225 Patient arrives ambulating from cynthia for [...] left ambulating without complaints documented in this [facility] Work Phone: evaluation + Plan note Future Appointments Appointment Date:09/28/2021 09:00:00 AM Scheduled Provider: Location:[facility] Appointment Type:URO Nurse Visit Appointment Date:02/01/2022 09:45:00 AM Scheduled Provider:Topher SAAVEDRA MD Location:[facility] Appointment Type:URO Office Visit [facility] evaluation + Plan note Future Appointments Appointment Date:10/26/2021 09:00:00 AM Scheduled Provider: Location:[facility] Appointment Type:URO Nurse Visit Appointment Date:02/01/2022 09:45:00 AM Scheduled Provider:Topher SAAVEDRA MD Location:[facility] Appointment Type:URO Office Visit [facility] evaluation + Plan note Future Appointments Appointment Date:11/23/2021 09:00:00 AM Scheduled Provider: Location:[facility] Appointment Type:URO Nurse Visit Appointment Date:02/01/2022 09:45:00 AM Scheduled Provider:Topher SAAVEDRA MD Location:[facility] Appointment Type:URO Office Visit [facility] evaluation + Plan note Future Appointments Appointment Date:12/21/2021 09:00:00 AM Scheduled Provider: Location:[facility] Appointment Type:URO Nurse Visit Appointment Date:02/01/2022 09:45:00 AM Scheduled Provider:[facility] Office Visit [facility] evaluation + Plan note Future Appointments Appointment Date:02/01/2022 09:45:00 AM Scheduled Provider:Topher SAAVEDRA MD Location:[facility] Appointment Type:URO Office Visit Diagnostic Tests Pending * Testosterone Level Total 12/21/21 [facility] evaluation + Plan note Future Appointments Appointment Date:03/01/2022 09:30:00 AM Scheduled Provider: Location:[facility] Appointment Type:URO Nurse Visit Diagnostic Tests Pending * Testosterone Level Total 04/06/22 * PSA Total 03/06/22 [facility] evaluation + Plan note Future Appointments Appointment Date:03/31/2022 08:15:00 AM Scheduled Provider: Location:[facility] Appointment Type:URO Nurse Visit [facility] evaluation + Plan note Future Appointments Appointment Date:04/21/2022 09:15:00 AM Scheduled Provider: Location:[facility] Appointment Type:URO Nurse Visit [facility] evaluation + Plan note Future Appointments Appointment Date:05/19/2022 08:00:00 AM Scheduled Provider:Mandy Schaefer MD Location:[facility] Appointment Type:URO Office Visit Diagnostic Tests Pending * PSA Total 04/16/22 * Testosterone Level Total 04/16/22 [facility] evaluation + Plan note Future Appointments Appointment Date:06/14/2022 09:00:00 AM Scheduled Provider: Location:[facility] Appointment Type:URO Nurse Visit Appointment Date:11/15/2022 08:45:00 AM Scheduled Provider:Topher SAAVEDRA MD Location:[facility] Appointment Type:URO Office Visit Diagnostic Tests Pending * PSA Total 05/17/22 * Testosterone Level Total 05/17/22 [facility] evaluation + Plan note Future Appointments Appointment Date:09/06/2022 09:00:00 AM Scheduled Provider: Location:[facility] Appointment Type:URO Nurse Visit Appointment Date:11/15/2022 08:45:00 AM Scheduled Provider:Topher SAAVEDRA MD Location:[facility] Appointment Type:URO Office Visit [facility] evaluation + Plan note Future Appointments Appointment Date:10/05/2022 09:00:00 AM Scheduled Provider: Location:[facility] Appointment Type:URO Nurse Visit Appointment Date:10/29/2022 08:45:00 AM Scheduled Provider:Topher S[facility]VEDRA [facility] Office Visit Appointment Date:11/05/2022 09:45:00 AM Scheduled Provider:Topher SAAVEDRA MD [facility] Office Visit [facility] evaluation + Plan note Future Appointments Appointment Date:11/05/2022 09:45:00 AM Scheduled Provider:Topher SAAVEDRA MD [facility] Office Visit [facility] evaluation + Plan note Future Appointments Appointment Date:12/03/2022 09:15:00 AM Scheduled Provider: Location:[facility] Appointment Type:URO Nurse Visit Diagnostic Tests Pending * Testosterone Level Total 11/05/22 * PSA Total 11/05/22 [facility] evaluation + Plan note Future Appointments Appointment Date:01/03/2023 08:15:00 AM Scheduled Provider[facility] Nurse Visit [facility] evaluation + Plan note Future Appointments Appointment Date:01/31/2023 08:45:00 AM Scheduled Provider: [facility] Type[facility] Nurse Visit [facility] evaluation + Plan note Future Appointments Appointment Date:03/07/2023 08:45:00 AM Scheduled Provider: Location:[facility] [place] Appointment Type:URO Nurse Visit Appointment Date:04/04/2023 08:45:00 AM Scheduled Provider: [facility] Appoint[facility] Type:URO Nurse Visit Appointment Date:05/02/2023 08:45:00 AM Scheduled Provider: [facility] Appointment Type:URO Nurse Visit Appointment Date:05/27/2023 09:45:00 AM Scheduled Provider:Topher SAAVEDRA MD [facility] Appointment Type:URO Office Visit [facility] evaluation + Plan note Future Appointments Appointment Date:05/02/2023 08:45:00 AM Scheduled Provider: [facility] Appointment Type:URO Nurse Visit Appointment Date:06/20/2023 10:30:00 AM Scheduled Provider:Topher SAAVEDRA MD [facility] Appointment Type:URO Office Visit [facility] evaluation + Plan note Future Appointments Appointment Date:06/20/2023 10:30:00 AM Scheduled Provider:Topher SAAVEDRA MD Location:[facility] [place] Appointment Type:URO Office Visit Diagnostic Tests Pending * Testosterone Level Total 05/09/23 [facility] evaluation + Plan note Future Appointments Appointment Date:07/18/2023 09:30:00 AM Scheduled Provider: Location:[facility] Christal Appointment Type:URO Nurse Visit Diagnostic Tests Pending * PSA Total 06/20/23 * Testosterone Level Total 06/20/23 [facility] evaluation + Plan note Future Appointments Appointment Date:08/15/2023 10:00:00 AM Scheduled Provider: Location:[facility] Appointment Type:URO Nurse Visit [facility] evaluation + Plan note Future Appointments Appointment Date:09/09/2023 08:30:00 AM Scheduled Provider: Location:[facility] Appointment Type:URO Nurse Visit [facility] evaluation + Plan note Future Appointments Appointment Date:10/07/2023 08:30:00 AM Scheduled Provider: Location:[facility] Appointment Type:URO Nurse Visit [facility] evaluation + Plan note Future Appointments Appointment Date:11/07/2023 09:00:00 AM Scheduled Provider: Location:[facility] Appointment Type:URO Nurse Visit [facility] evaluation + Plan note Future Appointments Appointment Date:12/05/2023 10:45:00 AM Scheduled Provider:Topher SAAVEDRA MD Location:[facility] Appointment Type:URO Office Visit [facility] evaluation + Plan note Future Appointments Appointment Date:01/02/2024 09:00:00 AM Scheduled Provider: Location:[facility] Appointment Type:URO Nurse Visit Diagnostic Tests Pending * Testosterone Level Total 12/05/23 * Hemoglobin 12/05/23 [facility] evaluation + Plan note Future Appointments Appointment Date:01/02/2024 09:00:00 AM Scheduled Provider: Location:[facility] Appointment Type:URO Nurse Visit [facility] Evaluation + Plan note Future Appointments Appointment Date:02/27/2024 09:00:00 AM Scheduled Provider: Location:[facility] Appointment Type:URO Nurse Visit [facility] evaluation + Plan note Future Appointments Appointment Date:03/27/2024 09:00:00 AM Scheduled Provider: Location:[facility] Appointment Type:URO Nurse Visit Appointment Date:04/23/2024 09:30:00 AM Scheduled Provider: Location:[facility] Appointment Type:URO Nurse Visit Appointment Date:05/21/2024 10:45:00 AM Scheduled Provider:Topher SAAVEDRA MD Location:[facility] Appointment Type:URO Office Visit [facility] evaluation + Plan note Future Appointments Appointment Date:04/23/2024 09:30:00 AM Scheduled Provider: Location:[facility] Appointment Type:URO Nurse Visit Appointment Date:05/21/2024 10:45:00 AM Scheduled Provider:Topher SAAVEDRA MD Location:[facility] Appointment Type:URO Office Visit [facility] evaluation + Plan note Future Appointments Appointment Date:05/08/2024 09:00:00 AM Scheduled Provider: Location:[facility] Appointment Type:URO Nurse Visit Appointment Date:05/21/2024 10:45:00 AM Scheduled Provider:Topher SAAVEDRA MD Location:[facility] Appointment Type:URO Office Visit [facility] evaluation + Plan note Future Appointments Appointment Date:08/09/2025 09:30:00 AM Scheduled Provider:Top[facility] Office Visit [facility] evaluation note* Diagnosis Polycythemia- Primary Polycythemia vera [facility] [employer] [facility]: Evaluation note* Diagnosis Polycythemia- Primary Polycythemia vera documented in this encounter [facility] [employer] Phone: evaluation note* Diagnosis Dermatophytosis of nail- Primary Dystrophic nail Other specified disease of nail Diabetic polyneuropathy associated with type 2 diabetes mellitus (CMS/HCC) Nontraumatic amputation of foot, right ([facility]/HCC) Nontraumatic amputation of foot, left ([facility]/HCC) Acquired keratoderma documented in this encounter [facility] HealthcareEvaluation note* Diagnosis Acquired keratoderma- Primary Diabetic polyneuropathy associated with type 2 diabetes mellitus (CMS/HCC) Nontraumatic amputation of foot, left ([facility]/HCC) Nontraumatic amputation of foot, right ([facility]/HCC) documented in this encounter [facility] HealthcareEvaluation note* Diagnosis Type 2 diabetes mellitus with diabetic polyneuropathy, without long-term current use of insulin ([facility]/HCC)- Primary Acquired hallux malleus of left foot Acquired hammer toes of both feet Foot callus Corns and callosities Partial nontraumatic amputation of right foot ([facility]/HCC) Partial nontraumatic amputation of foot, left ([facility]/HCC) Venous stasis dermatitis of both lower extremities Type 2 diabetes mellitus with diabetic microalbuminuria, without long-term current use of insulin ([facility]) Microalbuminuria Proteinuria Essential hypertension ([facility]/HCC) Unspecified essential hypertension Mixed hyperlipidemia ([facility]/HCC) Mixed hyperlipidemia Adverse reaction to statin medication Former smoker Personal history of tobacco use, presenting hazards to health Morbid obesity ([facility]) Morbid obesity documented in this encounter [facility] HealthcareEvaluation note* Diagnosis Diabetic polyneuropathy associated with type 2 diabetes mellitus (CMS/HCC)- Primary Nontraumatic amputation of foot, left (CMS/HCC) Nontraumatic amputation of foot, right ([facility]/HCC) documented in this encounter [facility] HealthcareEvaluation note* Diagnosis Diabetic polyneuropathy associated with type 2 diabetes mellitus (CMS/HCC)- Primary Nontraumatic amputation of foot, left (CMS/HCC) Nontraumatic amputation of foot, right ([facility]/HCC) documented in this encounter [facility] HealthcareEvaluation note* Diagnosis Dyspepsia Dyspepsia and other specified disorders of function of stomach documented in this encounter [facility] HealthcareEvaluation note* Diagnosis Polycythemia- Primary Polycythemia vera documented in this encounter [facility] HealthEvaluation note* Diagnosis Encounter for Medicare annual wellness exam- Primary Advance directive in chart Encounter for screening for other disorder Screening for alcohol problem Screening for alcoholism Morbid (severe) obesity due to excess calories ([facility]) BMI 39.0-39.9,adult Type 2 diabetes mellitus with diabetic polyneuropathy, without long-term current use of insulin ([facility]) Type 2 diabetes mellitus with diabetic microalbuminuria, without long-term current use of insulin ([facility]) Type 2 diabetes mellitus with foot ulcer (CODE) ([facility]) Non-pressure chronic ulcer of other part of unspecified foot with unspecified severity ([facility]) Partial nontraumatic amputation of right foot ([facility]) Partial nontraumatic amputation of foot, left ([facility]) Atherosclerosis of [place] coronary artery of [place] heart without angina pectoris ([facility]) History of myocardial infarction ([facility]) Mixed hyperlipidemia ([facility]) Mixed hyperlipidemia Adverse reaction to statin medication Primary open angle glaucoma of both eyes, unspecified glaucoma stage ([facility]) documented in this encounter [facility] HealthcareEvaluation note* Diagnosis Dyspepsia Dyspepsia and other specified disorders of function of stomach Essential hypertension ([facility]) Unspecified essential hypertension Microalbuminuria Proteinuria Mixed hyperlipidemia ([facility]) Mixed hyperlipidemia Type 2 diabetes mellitus with diabetic microalbuminuria, without long-term current use of insulin ([facility]) Type 2 diabetes mellitus with diabetic polyneuropathy, without long-term current use of insulin ([facility]) documented in this encounter [facility] HealthcareEvaluation note* Diagnosis Essential hypertension ([facility])- Primary Unspecified essential hypertension Microalbuminuria Proteinuria Type 2 diabetes mellitus with diabetic microalbuminuria, without long-term current use of insulin ([facility]) Type 2 diabetes mellitus with diabetic polyneuropathy, without long-term current use of insulin ([facility]) Mixed hyperlipidemia ([facility]) Mixed hyperlipidemia Adverse reaction to statin medication documented in this encounter [facility] HealthcareEvaluation note* Diagnosis Lumbar paraspinal muscle spasm Other symptoms referable to back Dyspepsia Dyspepsia and other specified disorders of function of stomach Type 2 diabetes mellitus with diabetic polyneuropathy, without long-term current use of insulin ([facility]) documented in this encounter [facility] HealthcareEvaluation note* Diagnosis Lumbar paraspinal muscle spasm Other symptoms referable to back documented in this encounter [facility] HealthcareEvaluation noteNo assessment information availableBlanchard Valley [facility] [employer] Phone: Evaluation note* Diagnosis Dyspepsia Dyspepsia and other specified disorders of function of stomach documented in this encounter [facility] HealthcareEvaluation note* Diagnosis Type 2 diabetes mellitus with diabetic polyneuropathy, without long-term current use of insulin (HCC) Type 2 diabetes mellitus with diabetic microalbuminuria, without long-term current use of insulin (HCC) Essential hypertension Unspecified essential hypertension Microalbuminuria Proteinuria Mixed hyperlipidemia Adverse reaction to statin medication Former smoker Personal history of tobacco use, presenting hazards to health Morbid obesity ([facility]) Morbid obesity Dyspepsia Dyspepsia and other specified disorders of function of stomach documented in this encounter [facility] HealthcareEvaluation note* Diagnosis Diabetic polyneuropathy associated with type 2 diabetes mellitus (HCC)- Primary Nontraumatic amputation of foot, left (HCC) Nontraumatic amputation of foot, right (HCC) Acquired keratoderma documented in this encounter [facility] HealthcareEvaluation note* Diagnosis Diabetic polyneuropathy associated with type 2 diabetes mellitus (HCC)- Primary Nontraumatic amputation of foot, left (HCC) Nontraumatic amputation of foot, right (HCC) [facility] Narrative No data available for this section [facility] Hospital Discharge instructions No data available for this section [facility] progress note No data available for this section [facility] reason for referral (narrative)No reason for referral information availableBlanchard Valley [facility] [employer] Work Phone: Summary Purpose Family History No [...] No Advanced Directives Records FoundDocuments on File TypeDate RecordedPatient RepresentativeExplanationAdvance Directives and Living WillAdvance [...] PMFull Code05/13/2014 2:36 PM05/13/2014 9:20 PMTypeDate RecordedPatient Enrollment Processor ExplanationAdvance Directives and Living Will Living Will Advance Directives and Living Will-04 Power Of AttorneyTypeDate RecordedPatient RepresentativeExplanationACP-Power of Attorney08/31/2013 9:46 AM ACP-Advance Directive08/31/2013 9:46 AMDate ActivatedDate InactivatedComments 08/06/2016 9:06 AM08/09/2016 5:53 PMDate ActivatedDate InactivatedComments08/04/2016 9:28 PM08/06/2016 9:06 AMDate ActivatedDate SseffmamgmzPxxmpzdv65/10/2015 12:42 PM 05/19/2015 6:52 PMDate ActivatedDate UwzdvcvncbjLsmktnby35/7/2015 11:22 AM 05/15/2015 12:42 PMDate ActivatedDate SnvwmmjwzhpKnvcjpyk38/8/2014 2:36 PM 05/13/2014 9:20 PM Advance Directive [...] section and content) DATE CREATED AUTHOR 11/24/2017 [facility] DATE CREATED AUTHOR AUTHOR'S ORGANIZ ATION 03/15/2018 [facility] DATE CREATED AUTHOR AUTHOR'S ORGANIZ ATION 09/26/2021 [facility] [employer] DATE CREATED AUTHOR AUTHOR'S ORGANIZ ATION 11/13/2022 [facility] DATE CREATED AUTHOR AUTHOR'S ORGANIZ ATION 07/07/2024 [facility] DATE CREATED AUTHOR AUTHOR'S ORGANIZ ATION 01/08/2025 [facility] DATE CREATED AUTHOR AUTHOR'S ORGANIZ ATION 01/11/2025 [facility] DATE CREATED AUTHOR AUTHOR'S ORGANIZ ATION 02/10/2025 [facility] DATE CREATED AUTHOR AUTHOR'S ORGANIZ ATION 02/16/2025 [facility] DATE CREATED AUTHOR AUTHOR'S ORGANIZ ATION 03/17/2025 [facility] DATE CREATED AUTHOR AUTHOR'S ORGANIZ ATION 04/10/2025 [facility] EPIC Care Team (unrecognized sect ion and content) Team MemberRelationshipSpecialtyStart DateEnd Date Jordan Duncan MD PCP - General07/25/19Team MemberRelationshipSpecialtyStart DateEnd Date Jordan Duncan MD [address] [place], [place] [id number] PCP - GeneralFamily Medicine10/25/22 Mitch Mello MD [address] [place] [address] Referring ShputriqpOysrblvrhf78/12/23 Jr. Anuja Henson DO [address] [place] [address] Referring PhysicianOrthopaedic Epjhild42/12/23 Brody Ibrahim DPM [address] [place], [place] [address] Referring VwcxfxjkwNeilqpgi88/12/23Team MemberRelationshipSpecialtyStart DateEnd Date Jordan Duncan MD [address] [place] [address] (Fax) PCP - GeneralFamily Medicine10/25/22 Mitch Mello MD [address] [place] [address] Referring DjomicqxxYfhuoecbtm23/12/23 Jr. Anuja Henson DO [address] [address] Referring PhysicianOrthopaedic Vmhfeyo62/12/23 Brody Ibrahim DPM [address] [place] [address] [place] [address] Referring UmyeaeefmJvcnzbxq90/12/23Team MemberRelationshipSpecialtyStart DateEnd Date Jordan Duncan MD [address] [phone] (Fax) PCP - [facility]miCl[facility]10/25/22 Jordan Duncan MD [address] [place] [address] (Fax) PCP - ACO Reach08/05/23 Mitch Mello MD [address] [place] [address] Referring UlpghzyrdNnasevtffa15/12/23 Jr. Anuja Henson DO [address] [address] Referring PhysicianOrthopaedic Tguwoud78/12/23 Brody Ibrahim DPM [address] [place] [address] Referring DvfblbywxTfpuwcqx41/12/23Team MemberRelationshipSpecialtyStart DateEnd Date Jordan Duncan MD [address] [place] [address] (Fax) PCP - Generalmi Medicine10/25/22 Jordan Duncan MD [address] [place] [address] (Fax) PCP - ACO [facility]08/05/23 Mitch Mello MD [address] [place] [address] Referring IyhfuyembEmokpyvkbi87/12/23 Jr. Anuja Henson DO [address] [place] [address] Referring PhysicianOrthopaedic Nqmfvms08/12/23 Brody Ibrahim DPM [address] [place] [address] Referring NeercyucwHjjpunas93/12/23Te MemberRelationshipSpecialtyStart DateEnd Date Jordan Duncan MD [address] [place] [address] (Fax) PCP - GeneralFami Medicine10/25/22 Jordan Duncan MD [address] [place] [address] PCP - ACO [facility]08/05/23 Mitch Mello MD [address] [place] [address] Referring MuewmvtnlWjiwbkjodo15/12/23 Jr. Anuja Henson DO [address] [address] Referring PhysicianOrthopaedic Pfeopke10/12/23 Brody Ibrahim DPM [address] [place], [place] [address] Referring QfzpiylbzObfwiogm82/12/23Team MemberRelationshipSpecialtyStart DateEnd Date Jordan Duncan MD [address] [place] [address] (Fax) PCP - GeneralFamily Medicine10/25/22 Jordan Duncan MD [address] [place] [address] (Fax) PCP - ACO [facility]08/05/23 Mitch Mello MD [address] [place] [address] Referring OtjhrsnsmTubvqxcrjf51/12/23 Jr. Anuja Henson DO [address] [address] Referring PhysicianOrthopaedic Vgumhnu96/12/23 Brody Ibrahim DPM [address] [place] [address] Referring KkpxgbiwsWxpjabyj44/12/23Team MemberRelationshipSpecialtyStart DateEnd Date Jordan Duncan MD [address] [place] [address] (Fax) PCP - GeneralFamily Medicine10/25/22 Jordan Duncan MD [address] [place] [address] (Fax) PCP - ACO [place]ach08/05/23 Mitch Mello MD [address] [place] [address] Referring UdmpcplybAvggbvlkze97/12/23 Jr. Anuja Henson DO [address] [address] Referring PhysicianOrthopaedic Mhzmdhr00/12/23 Brody Ibrahim DPM [address] [place] [address] Referring PwqblpvmgDytxgijd99/12/23Team MemberRelationshipSpecialtyStart DateEnd Date Jordan Duncan MD [address] [place] [address] (Fax) PCP - GeneralFamily Medicine10/25/22 Jordan Duncan MD [address] [place] [address] (Fax) PCP - ACO [place]08/05/23 Mitch Mello MD [address] [place] [phone] Referring VjjdullwsQrmhilgjzh88/12/23 Jr. Anuja Henson DO [address] [facility] [address] [place] [address] Referring PhysicianOrthopaedic Nwjsodz26/12/23 Brody Ibrahim DPM [address] [place] [address] Referring MsntmtmwbFbglsbda57/12/23Team MemberRelationshipSpecialtyStart DateEnd Date Jordan Duncan MD [address] [place] [address] (Fax) PCP - GeneralFamily Medicine10/25/22 Jordan Duncan MD [address] [place] [address] (Fax) PCP - ACO [place]ach08/05/23 Mitch Mello MD [address] [place] [address] Referring UvmkryvamZyyfsigbem10/12/23 Jr. Anuja Henson DO [address] [address] Referring PhysicianOrthopaedic Qdnfmuh11/12/23 Brody Ibrahim DPM [address] [place] [address] Referring HtefmgymsTrlowpbe66/12/23Team MemberRelationshipSpecialtyStart DateEnd Date Jordan Duncan MD [address] [place] [address] (Fax) PCP - GeneralFamily Medicine10/25/22 Jordan Duncan MD [address] [place] [address] (Fax) PCP - ACO Reach08/05/23 Mitch Mello MD [address] [place] [address] Referring WebtddgftWpxvxuwonw16/12/23 Jr. Anuja Henson DO [address] [facility] [address] [place] [address] Referring PhysicianOrthopaedic Albsbcz46/12/23 Brody Ibrahim DPM [address] [place] [address] Referring DgluwysasVzvfuakn93/12/23Team MemberRelationshipSpecialtyStart DateEnd Date Jordan Duncan MD [address] [address] (Fax) PCP - GeneralFamily Medicine10/25/22 Jordan Duncan MD [address] [facility] [address] [place] [address] (Fax) PCP - ACO Reach08/05/23 Mitch Mello MD [address] [place] [address] Referring RlzskrpmeOkadtjpiyh24/12/23 Jr. Anuja Henson DO [address] [facility] [address] [place] [address] Referring PhysicianOrthopaedic Adoaarm77/12/23 Brody Ibrahim DPM [address] [place] [address] Referring ZbmzgwdyfZdasyzbf16/12/23Team MemberRelationshipSpecialtyStart DateEnd Jordan Duncan MD [address] [place] [address] (Fax) [facility]10/25/22 Jordan Duncan MD [address] [place] [address] (Fax) PCP - ACO Reach08/05/23 Mitch Mello MD [address] [place], [place] [phone] Referring ZmwtomhbwEewidwzabc91/12/23 Jr. Anuja Henson DO [address] [place] [address] [place] [address] Referring PhysicianOrthopaedic Gfojvrp96/12/23 Brody Ibrahim DPM [address] [place] [address] Referring VocmwzrwgGpielqtn06/12/23Te MemberRelationshipSpecialtyStart DateEnd Jordan Duncan MD [address] [place] [address] (Fax) [facility]CP - [facility] Medicine10/25/22 Jordan Duncan MD [address] [place] [address] (Fax) PCP - ACO Reach08/05/23 Mitch Mello MD [address] [place] [address] Referring RbpnlivxtFcqsaocpur94/12/23 Jr. Anuja Henson DO [address] [place] [address] [place] [address] Referring PhysicianOrthopaedic Xxdvzpm34/12/23 Brody Ibrahim DPM [address] [place], [place] [address] Referring GzmilwyymSifkbzlv01/12/23Team MemberRelationshipSpecialtyStart DateEnd Date Jordan Duncan MD (Fax) PCP - General07/25/19Team MemberRelationshipSpecialtyStart DateEnd Date Jordan Duncan MD [address] [place] [address] (Fax) [facility] - [facility]10/25/22 Jordan Duncan MD [address] [place] [address] (Fax) PCP - ACO [facility]08/05/23 Mitch Mello MD [address] [place] [address] Referring JizoujspqOueynbfway65/12/23 Jr. Anuja Henson DO [address] [place] [address] Referring PhysicianOrthopaedic Kdnrkzx29/12/23 Brody Ibrahim DPM [address] [place] [address] Referring BjcuksulqNiudeswi47/12/23Team MemberRelationshipSpecialtyStart DateEnd Date Jordan Duncan MD [address] [place] [address] PCP - GeneralFamily Medicine10/25/22 Jordan Duncan MD [address] [place] [address] PCP - ACO [facility]08/05/23 Jr. Anuja Henson DO [address] [place] [address] [place] [address] Referring PhysicianOrthopaedic Iqyyygs05/12/23 Brody Ibrahim DPM [address] [place] [address] Referring ThbhasndnFfzywxic92/12/23 Anuja Huddleston MD [address] [place] [phone] Referring PhysicianFamily Medicine07/25/24 Topher Saavedra MD [address] [place] [address] Referring PhysicianUrolog07/25/24 Kitty Edmond OD [address] [facility] [place] [address] Referring PhysicianOptometry07/25/24Team MemberRelationshipSpecialtyStart DateEnd Date Jordan Duncan MD [address] [place] [address] (Fax) PCP - GeneralFamily Medicine10/25/22 Jordan Duncan MD [address] [place] [address] (Fax) PCP - ACO Reach08/05/23 Jr. Anuja Henson DO [address] [place] [address] Referring PhysicianOrthopaedic Oojrkea98/12/23 Brody Ibrahim DPM [address] [facility] [place] [address] Referring JmumhxllfLlcqrjqq19/12/23 Anuja Huddleston MD [address] [place] [phone] (Fax) Referring PhysicianFamily Medicine07/25/24 Topher Saavedra MD [address] [place] [address] Referring PhysicianUrolog07/25/24 Kitty Edmond OD [address] [place] [address] Referring PhysicianOptometry07/25/24Team MemberRelationshipSpecialtyStart DateEnd Date Jordan Duncan MD [address] [place] [address] (Fax) PCP - GeneralFamily Medicine10/25/22 Jordan Duncan MD [address] [place] [address] (Fax) PCP - ACO Reach08/05/23 Jr. Anuja Henson DO [address] [place] [address] Referring PhysicianOrthopaedic Gxuwxmr72/12/23 Brody Ibrahim DPM [address] [facility] [place] [address] Referring PniguyqxiZqatiblu25/12/23 [place] [address] [place] [phone] Referring PhysicianFamily Medicine07/25/24 Topher Saavedra MD [address] [place] [phone] Referring PhysicianUrolog07/25/24 Kitty Edmond OD [address] [facility] [place] [address] Referring PhysicianOptometry07/25/24Team MemberRelationshipSpecialtyStart DateEnd Date Jordna Duncan MD [address] [place] [address] (Fax) PCP - GeneralFamily Medicine10/25/22 Jordan Duncan MD [address] [place] [address] (Fax) PCP - ACO Reach08/05/23 Jr. Anuja Henson DO [address] [place] [address] Referring PhysicianOrthopaedic Btkumph09/12/23 Brody Ibrahim DPM [address] [place] [address] Referring HetjjzwevMaryeuxc83/12/23 Anuja Huddleston MD [address] [place] [phone] Referring PhysicianFamily Medicine07/25/24 Topher Saavedra MD [address] [place] [address] Referring PhysicianUrolog07/25/24 Kitty Edmond [address] [facility] [place] [address] Referring PhysicianOptometry07/25/24Team MemberRelationshipSpecialtyStart DateEnd Date Jrodan Duncan MD [address] [place] [address] PCP - [facility]Select [facility]ly Medicine10/25/22 Jordan Duncan MD [address] [place] [address] (Fax) PCP - ACO Reach08/05/23 Jr. Anuja Henson DO [address] [place] [address] Referring PhysicianOrthopaedic Nyleuva15/12/23 Brody Ibrahim DPM [address] [place] [address] Referring QfgkgadevOazuddrw82/12/23 Anuja Huddleston MD [address] [place] [phone] (Fax) Referring PhysicianFamily Medicine07/25/24 Topher Saavedra MD [address] [place] [address] Referring PhysicianUrolog07/25/24 Kitty Edmond OD [facility] [facility] [place] [address] Referring PhysicianOptometry07/25/24Team MemberRelationshipSpecialtyStart DateEnd Date Jordan Duncan MD [address] [place] [address] (Fax) PCP - GeneralFamily Medicine10/25/22 Jordan Duncan MD [address] [place] [address] (Fax) PCP - ACO Reach08/05/23 Jr. Anuja Henson DO [address] [place] [address] Referring PhysicianOrthopaedic Hgjqggy63/12/23 Brody Ibrahim DPM [facility] [address] Referring UrhbatlaiWnawtbec25/12/23 Anuja Huddleston MD [address] [place] [phone] (Fax) Referring PhysicianFamily Medicine07/25/24 Topher Saavedra MD [address] [place] [address] Referring PhysicianUrolog07/25/24 Kitty Edmond [address] [facility] [place] [address] Referring PhysicianOptometry07/25/24Team MemberRelationshipSpecialtyStart DateEnd Date Jordan Duncan MD [address] [place] [address] PCP - GeneralFamily Medicine10/25/22 Jordan Duncan MD [address] [place] [address] PCP - ACO Reach08/05/23 Jr. Anuja Henson DO [address] [place] [address] Referring PhysicianOrthopaedic Yinjjiu60/12/23 Brody Ibrahim DPM [address] [place] [address] Referring PwrofwpnsEfhqtokf96/12/23 Anuja Huddleston MD [address] [place] [phone] Referring PhysicianFamily Medicine07/25/24 Topher Saavedra MD [address] [place] [address] Referring PhysicianUrolog07/25/24 Kitty Edmond [address] [facility] [place] [address] Referring PhysicianOptometry07/25/24 Korin Kraft RN [address] [place] [address] Registered NurseFamily Medicine12/24/24Team MemberRelationshipSpecialtyStart Date End Date Jordan Duncan MD [address] [place] [address] (Fax) PCP - GeneralFamily Medicine10/25/22 Jordan Duncan MD [address] [place] [address] (Fax) PCP - ACO [facility]08/05/23 Jr. Anuja Henson DO [address] [place] [address] Referring PhysicianOrthopaedic Pzteezh00/12/23 Brody Ibrahim DPM [address] [place] [address] Referring SgohtmxggDjjpnikt56/12/23 Anuja Huddleston MD [address] [place] [address] (Fax) Referring PhysicianFamily Medicine07/25/24 Topher Saavedra MD [address] [place] [address] Referring PhysicianUrolog07/25/24 Kitty Edmond OD [address] [place] [address] Referring PhysicianOptometry07/25/24 Korin Kraft RN [address] [place] [address] Registered NurseFamily Medicine12/24/24Team MemberRelationshipSpecialtyStart Date End Date Jordan Duncan MD [address] [place] [address] PCP - GeneralFamily Medicine10/25/22 Jordan Duncan MD [address] [place] [address] PCP - ACO Reach08/05/23 Jr. Anuja Henson DO [address] [place] [address] Referring PhysicianOrthopaedic Xtdhkey61/12/23 Brody Ibrahim DPM [address] [place] [address] Referring XjmrpewblMfwqsxyz90/12/23 Anuja Huddleston MD [address] [place] [phone] Referring PhysicianFamily Medicine07/25/24 Topher Saavedra MD [address] [place] [phone] Referring PhysicianUrolog07/25/24 Kitty Edmond OD [address] [facility] [place] [address] Referring PhysicianOptometry07/25/24 Team Status: Inactive Member Role Status Dates Enedina Hargrove DPM MS Attending Provider Active Start: January 01, 2025 End: January 01, 2025Team MemberRelationshipSpecialtyStart DateEnd Date Jordan Duncan MD [address] [place] [address] (Fax) PCP - GeneralFamily Medicine10/25/22 Jordan Duncan MD [address] [place] [address] (Fax) PCP - ACO Reach08/05/23 Jr. Anuja Henson DO [address] [place] [address] Referring PhysicianOrthopaedic Xyhdwmq66/12/23 Brody Ibrahim DPM [address] [place], [place] [address]j[place] [address] Referring ZxcurougvTxktmrdy16/12/23 Anuja Huddleston MD [address] [place] [phone] (Fax) Referring PhysicianFamily Medicine07/25/24 Topher Saavedra MD [address] [place], [place] [phone] Referring PhysicianUrolog07/25/24 Kitty Edmond OD [address] [place] [address] [place] [address] Referring PhysicianOptometry07/25/24Team MemberRelationshipSpecialtyStart DateEnd Date Jordan Duncan MD [address] [place] [address] (Fax) PCP - GeneralFamily Medicine10/25/22 Jordan Duncan MD [address] [place] [address] (Fax) PCP - ACO Reach08/05/23 Jr. Anuja Henson DO [address] [place] [address] Referring PhysicianOrthopaedic Wfoxzbn16/12/23 Brody Ibrahim DPM [address] [place], [place] [address] [address] Referring HhxqcmlueItbjwtoj51/12/23 Anuja Huddleston MD [address] [place] [phone] Referring PhysicianFamily Medicine07/25/24 Topher Saavedra MD [address] [place] [phone] Referring PhysicianUrolog07/25/24 Kitty Edmond OD [address] [place] [address] Referring PhysicianOptometry07/25/24Team MemberRelationshipSpecialtyStart DateEnd Date Jordan Duncan MD [address] [place] [address] (Fax) PCP - GeneralFamily Medicine10/25/22 Jordan Duncan MD [address] [place] [address] (Fax) PCP - ACO Reach08/05/23 Jr. Anuja Henson DO [address] [place] [address] Referring PhysicianOrthopaedic Sopkutk64/12/23 Brody Ibrahim DPM [address] [place] [address] Referring VxcjnocubAxqcoiol84/12/23 Anuja Huddleston MD [address] [place] [phone] Referring PhysicianFamily Medicine07/25/24 Topher Saavedra MD [address] [place] [address] Referring PhysicianUrolog07/25/24 Kitty Edmond OD [address] [facility] [place] [address] Referring PhysicianOptometry07/25/24Team MemberRelationshipSpecialtyStart DateEnd Date Jordan Duncan MD [address] [place] [address] PCP - [facility]10/25/22 Jordan Duncan MD [address] [place] [address] PCP - ACO Reach08/05/23 Jr. Anuja Henson DO [address] [place] [address] Referring PhysicianOrthopaedic Lfkeqiq74/12/23 Brody Ibrahim DPM [address] [place] [address] Referring HoiekpokrOyvmrblb70/12/23 Anuja Huddleston MD [address] [place] [address] Referring PhysicianFamily Medicine07/25/24 Topher Saavedra MD [address] [place] [address] Referring PhysicianUrolog07/25/24 Kitty Edmond OD [address] [facility] [place] [address] Referring PhysicianOptometry07/25/24Team MemberRelationshipSpecialtyStart DateEnd Date Jordan Duncan MD [address] [facility] [address] [place] [address] PCP - GeneralFamily Medicine10/25/22 Jordan Duncan MD [address] [facility] [address] [place] [address] PCP - ACO Reach08/05/23 Mitch Mello MD [address] [place], [place] [phone] Referring QrmwcbkefImxhtkpehg47/12/232 Jr. Anuja Henson DO [address] [facility] [address] [place] [address] Referring PhysicianOrthopaedic Jybfqqj94/12/23 Brody Ibrahim DPM [address] [place] [address] Referring NxlfnkydwOzzhuhts56/12/23 Anuja Huddleston MD [address] [place] [address] (Fax) Referring PhysicianFamily Medicine07/25/24 Topher Saavedra MD [address] [place] [phone] Referring PhysicianUrolog07/25/24 Kitty Edmond OD [address] [facility] [place] [address] Referring PhysicianOptometry07/25/24 Korin Kraft, RN [address] [place] [address] Registered NurseFamily MedicineTeam MemberRelationshipSpecialty Start DateEnd Date Jordan Duncan MD [address] [facility] [address] [place] [address] PCP - GeneralFamily Medicine10/25/22 Jordan Duncan MD [address] [facility] [address] [place] [address] PCP - ACO Reach08/05/23 Mitch Mello MD [address] [place] [address] Referring PkadnvalrBkkjcluooo35/12/232 Jr. Anuja Henson DO [address] [place] [address] Referring PhysicianOrthopaedic Mrtwtlv12/12/23 Brody Ibrahim DPM [address] [place] [address] Referring EplbudqlwZycmjwic85/12/23 Anuja Huddleston MD [address] [place] [phone] (Fax) Referring PhysicianFamily Medicine07/25/24 Tohper Saavedra MD [address] [place] [address] Referring PhysicianUrolog07/25/24 Kitty Edmond OD [address] [facility] [place] [address] Referring PhysicianOptometry07/25/24 Korin Kraft, ARUN [address] [place] [address] Registered NurseFamily MedicineTeam MemberRelationshipSpecialty Start DateEnd Date Jordan Duncan MD [address] [place] [address] (Fax) PCP - GeneralSelect [facility]inesly Medicine10/25/22 Jordan Duncan MD [address] [place] [address] (Fax) PCP - ACO Reach08/05/23 Jr. Anuja Henson DO [address] [place] [address] Referring PhysicianOrthopaedic Thqpkdq09/12/23 Brody Ibrahim DPM [address] [place] [address] Referring JxldlynmpFirokbco95/12/23 Anuja Huddleston MD [address] [place] [phone] Referring PhysicianFamily Medicine07/25/24 Topher Saavedra MD [address] [place] [address] Referring PhysicianUrolog07/25/24 [place] [address] [place] [address] Referring PhysicianOptometry07/25/24 Reason for Visit (unrecogniz ed section and content) ReasonCommentsNail Kym Jennings is a 73 y.o. male who presents for Nail care and discuss inserts. Pt relates recently saw Dr Hargrove right foot ulcer, which has improved. Dr. Ruiz 05/17/2023 BS 121 A1C 6.0(04/2023)/ SS14 ReasonCommentsFUVDgabby Jennings is a 73 y.o. male who [...] 03/27/24, A1C: 6.4 (5), BS: 132 SS: 14.ReasonCommentsDiabetic shoe checkJuan Miguel Jennings is a 74 y.o. male who presents diabetic shoe check. PCP: Dr. Dakota YARBROUGH 03/27/24, A1C: 6.4 (5/), BS: 132 SS: 14.ReasonCommentsAnnual ExamReasonCommentsMed RefillReason CommentsDM Foot CareEstablished patient presents today for diabetic foot check. And possibly starting shoe process. Patient have toe amputated on 01/01/25. Patient reports neuropathy has been getting worse, with numbness, tingling. Patient interested in doing diabetic shoe process. PCP: Dr. Duncan 03/19/25, A1C: 6.4, BS: 130,ReasonCommentsDiabetic ShoesPt is [...] BE BASED ON THE PRIMARY CLINICAL RECORDS. [facility]. provides no warranty or guarantee of the accuracy or completeness of information in this document.
== END 2025-05-15 09:18 | disposition home or self-care (01) ==
LOC: WC 09:17
PROVIDERS: PCP Family Medicine; Visit Provider Physician Assistant
DX: L84 Corns and callosities (principal); E11.40 Type 2 diabetes mellitus with diabetic neuropathy, unspecified
CPT/HCPCS: 11056

== ENCOUNTER 2025-05-28 09:47 | Outpatient (OUT) | payer MEDICARE, SELFPAY ==
--- OUTSIDE RECORDS SUMMARY | 2025-05-21 11:15 | XMS_ITS | Encounter Summary ---
Author Organization [facility] Address [address] [place] [address] Care Team Providers Care Manager Of Corporate Name Role Phone Jordan Wong MD Primary Care Provider Jr. Julio Hi DO Unavailable [phone] Alberto Ibrahim DPM Unavailable Jordan Wong MD Unavailable [phone] Julio Huddleston MD Unavailable [phone] Hudson Stevenson MD Unavailable [phone] Kitty Edmond OD Unavailable Reason for Visit * ReasonCommentsDiabetic ShoesEstablished patient presents today for 3 week diabetic shoe check. Patient states the shoes are comfortable. Patient states he went to wound care 2-3 weeks ago, callus was trimmed, patient states it is pretty well healed up. Patient has been using medihoney and band-aid dressing. Encounter Details DateTypeDepartmentCare Team (Latest Contact Info)Tagfuuxfyfp50/16/2025 11:15 AM ESTOffice Visit [facility] [address] [place] [phone] Alberto Ibrahim DPM [address] [place] [address] Blister of right foot, initial encounter (Primary Dx); Diabetic polyneuropathy associated with type 2 diabetes mellitus (HCC); Nontraumatic amputation of foot, left (HCC); Nontraumatic [...] on one occasion?Never04/12/2023HQ-2AnswerDate Recorded Patient Health Questionnaire-2 Spfrl621EducationAnswerDate RecordedWhat is the highest level of school you have completed or the highest degree you have received?High school cfkxuqgv39/16/2023Sex and Gender InformationValueDate RecordedSex Assigned at BirthNot on fileLegal PsjGalo6208/18/2022 8:05 PM EDT Gender XwlotjtbVjqo91/15/2023 8:05 PM EDTSexual OrientationNot on filedocumented as of this encounter Last Filed Vital Signs Vital SignReadingTime TakenCommentsBlood Pressure--Pulse--Temperature-- Respiratory Rate--Oxygen Saturation--Inhaled Oxygen Concentration--Vxovqx859 kg (347 lb)05/21/2025 11:25 AM HOBQwpvna621.1 cm (6' 6 )05/21/2025 11:25 AM ESTBody Mass Index40. 11:25 AM ESTdocumented in this encounter Patient Instructions * Patient Instructions* Alberto Ibrahim DPM - 05/21/2025 11:15 AM EST As noted documented in this encounter Progress Notes * Alberto Ibrahim DPM - 05/21/2025 11:15 AM EST Images from the original note were not included. Subjective Patient ID: Juan Miguel Jennings is a 75 y.o. male who presents for Diabetic Shoes (Established patientpresents today for 3 week diabetic shoe check. Patient states the shoes are comfortable. Patient states he went to wound care 2-3 weeks ago, callus was trimmed, patient states it is pretty well healed up. Patient has been using medihoney and band-aid dressing. ). HPI Presents for 3 week assessment of recently fitted therapeutic footwear and custom molded orthoses. Reports small blister formation plantar-lateral area of the right forefoot with minimal drainage.Denies redness, swelling or warmth. Denies streaking or constitutional symptoms. Denies injury or trauma. Patient is otherwise well satisfied with therapeutic footwear and custom molded orthoses. Risk factors: Type II diabetes. Diabetic peripheral [...] 03/2017 lesions on bottom of both feet, [facility] OTHER SURGICAL HISTORY 4 stents KaGeraldo [...] disposition. Presents wearing current Dr. Gruber therapeutic footwear. Vascular: DP 1/4 bilateral. PT 1/4 bilateral. 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 Right foot: Dried, crusty blister area associated with the sub 4th metatarsal callus; non-inflamed,non-tender, non-fluctuant, without drainage. There are no clinical signs of cellulitis or blister site infection. Ulceration: No clinical signs of ulceration or open wound. Assessment/Plan There are no diagnoses linked to this encounter. Chronic, stable onychodystrophy/mycosis multiple digits. Diabetic peripheral neuropathy (Q9). 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 (December 2024). Stable hyperkeratotic lesions bilateral forefoot. Blister formation right forefoot without cellulitis or complication. Plan: Diabetic assessment and education relative to the high-risk foot . Appropriate modification of right custom-molded accommodative orthosis; pocketing and offloading the callus/ blister area. Instructions to cleanse site daily and apply thin layer of Neosporin ointment or equivalent. Discourage any barefoot walking. Follow up: 4-6 weeks; sooner if any problems arise. Indications for therapeutic footwear and multi-laminate, multi-density [...] Plan of Treatment DateTypeDepartmentCare Team (Latest Contact Info)Zjiubrowbea02/27/2026 11:15 AM ESTOffice Visit [facility] [address] [place] [address] Alberto Ibrahim DPM [address] [place] [address] 07/15/2025 10:00 AM ESTOffice Visit [facility] [address] [phone] Joradn Wong MD [address] [address] 09/11/2025 9:00 AM EDTOffice Visit [facility] [address] [phone] Jordan Wong MD [address] [address] documented as of this encounter Visit Diagnoses Diagnosis Blister of right foot, initial encounter- Primary Diabetic polyneuropathy associated with type 2 diabetes mellitus (HCC) Nontraumatic amputation of foot, left (HCC) Nontraumatic amputation of foot, right (HCC) documented in this encounter Additional Health Concerns AssessmentNoted TimePHQ-9 Depression Total Score: 9:00 AM EST documented as of this encounter Care Teams Team MemberRelationshipSpecialtyStart DateEnd Date Jordan Wong MD [address] [place] [address] (Fax) PCP - GeneralFamily Medicine10/25/22 Jordan Wong MD [address] [place] [address] (Fax) PCP - ACO Reach08/05/23 Jr. Julio Hi DO [address] [place] [address] Referring PhysicianOrthopaedic Rhzohdn74/12/23 Alberto Ibrahim DPM [address] [facility] [place] [address] Referring WcdgvbmdoJgefsxby09/12/23 Julio Huddleston MD [address] [place] [address] Referring PhysicianFamily Medicine07/25/24 Hudson Stevenson MD [address] [place] [address] Referring PhysicianUrolog07/25/24 Kitty Edmond OD [address] [facility] [place] [address] Referring PhysicianOptometry07/25/24documented as of this encounter
--- OUTSIDE RECORDS SUMMARY | 2025-05-28 09:51 | XMS_ITS | Clinical Summary ---
Author Organization [facility] Address [address] [facility] [address], [address] [place] [address] Care Team Providers Care Certified Caregiver Name Role Phone Jordan Wong MD Primary Care Provider Allergies Active AllergyReactionsCriticalityNoted DateCommentsClindamycin Hcl08/31/2021 Other reaction(s): nausea diarrhea KoibrflebFidhlcxy21/28/5266HtmtafixuUlbyurid87/28/8033Zhntiroivse06/28/2022 Other reaction(s): abdominal pain Zncjcecunoln39/28/2022 Other reaction(s): abdominal pain Medications MedicationSigDispense QuantityRefillsLast [...] gel-forming Place 1 drop into both eyes klwqz37007/24/2013ctive brinzolamide-brimonidine 1-0.2 % SUSP Apply to eye 3 times dailyActive oxybutynin (DITROPAN-XL) 5 MG extended release tablet Take 1 tablet by mouth esecr36509/08/2017Active testosterone cypionate (DEPOTESTOTERONE CYPIONATE) 200 MG/ML injection Inject 1 mL into the muscle. Once a ujfjk020Active latanoprost (XALATAN) 0.005 % ophthalmic solution INSTILL 1 DROP INTO AFFECTED EYE(S) BY OPHTHALMIC ROUTE ONCE DAILY IN THE QWBIDOD091Active losartan (COZAAR) 50 MG tablet TAKE 1 TABLET BY MOUTH EVERY DAY FOR 90 DAYS09/29/2021ctive RHOPRESSA 0.02 % SOLN PLACE 1 DROP INTO LEFT EYE MEAXPOEV40/15/2022ctive niacin 500 MG tablet Take 1 tablet [...] of metatarsal bone of right foot - cjtnof2908/05/2016Morbid loiktfk7908/05/2016Type 2 diabetes mellitus with neurologic hjrulqovqrzv23/01/2017Diabetic peripheral zhvtaaqejk91/01/2017 Cellulitis and abscess of toe of right foot08/04/2016Obstructive sleep apnea lrubzfaq18/27/2016S/P JORY - LCX & RCA (5509-9135-Gt. kabour)05/13/2014S/P cardiac cath-05/13/14-Dr. landrum05/13/2014 Overview (05/13/2014): Patent stents HTN (hypertension)05/13/20147170Ezfolwmqshzrse45/08/4387Fjkxrlsfnmcv78/31/2014nal loidwn2603/15/2012 Resolved Problems ProblemNoted DateDiagnosed DateResolved DateScreening for colorectal cancer Immunizations ImmunizationAdministration DatesNext DueInfluenza Vaccine, unspecified vmtrkpoghge76/01/2016 Family History Medical HistoryRelationNameCommentsHeart DiseaseBrotherHeart DiseaseMother RelationNameStatusCommentsBrotherAliveFatherDeceasedMotherAlive Social History Tobacco UseTypesPacks/DayYears UsedDateSmoking Tobacco: QksjijQebrqgfrxf077 08/31/1979 - 08/31/1999Smokeless Tobacco: Never Tobacco Cessation:Counseling Given: Not Answered Comments:quit smoking in 1999 Alcohol UseStandard Drinks/WeekCommentsNo0 (1 standard drink = 0.6 oz pure alcohol)Sex and Gender InformationValueDate RecordedSex Assigned at BirthNot on fileLegal YgbZvxp8307/16/2012 9:00 PM ESTGender IdentityNot on fileSexual OrientationNot on file Last Filed Vital Signs Vital SignReadingTime TakenCommentsBlood Kzqecanm317/64010/17/2024 1:29 PM EDT Ugypl5835/14/2025 1:29 PM DGDMiedqwpuqif06.4 ??C (97.5 ??F)10/17/2024 1:29 PM EDTRespiratory Gqoz309210/17/2024 1:29 PM EDTOxygen Qcabxaveta44%09/03/2016 12:55 PM EDTInhaled Oxygen Concentration--Ruozyg173.2 kg (351 lb)10/17/2024 1:29 PM JGJNyzsvm310.1 cm (6' 6 )11/09/2023 1:22 PM EDTBody Mass Index40.56011/09/2023 1:22 PM EDT Plan of Treatment DateTypeDepartmentCare Team (Latest Contact Info)Jacjapbnnmt84/20/2026 1:00 PM ESTAppointment [facility] [address] [place], [place] [id number] ddpeujomsw03/20/2026 10:00 AM EDTOffice Visit [facility] [address] [place] [address] [place] [address] [place], [place] [id number] F/[facility] MaintenanceDue DateLast DoneCommentsDiabetic foot exam02/10/1962Lipids 2Depression Cbsbcf9502/11/1964Diabetic Alb to Cr ratio (uACR) test 02/10/1970Diabetic retinal exam02/10/1970Hepatitis C lwwfak1102/10/1970 DTaP/Tdap/Td vaccine (1 - Tdap)02/10/19719900Dwbjfhudaiv49/07/1997Colorectal Cancer Rhvwbo9202/10/1997FIT/FOBT: Average risk02/10/1997Fecal-DNA (Cologuard): Average risk02/10/1997Sigmoidoscopy/CT ajuhfhzogfna17/07/1997Respiratory Syncytial Virus (RSV) or age 60 yrs+ [...] existsProstate Specific Antigen (PSA) Screening or Monitoring Oxzjxqmcjrhs09/10/2019Pneumococcal 50+ years UptsaunFmyqbwuey80/01/2019, 03/05/2019, 03/04/2019, Additional history existsAAA ymtjxpNxyyyaeva63/22/2021, 04/15/2014, 02/29/2012Hepatitis A vaccineAged OutNo longer eligible [...] topic Procedures Procedure NamePriorityDate/TimeAssociated DiagnosisCommentsPSA 3RD GENERATION Ackckrs6210/13/2018 9:50 AM EDT COMPREHENSIVE METABOLIC WOTTAHcoyizh28/14/2017 11:00 AM EDT HEMOGLOBIN I5QFrnybhx34/01/2017 7:05 PM EST US ABDOMEN PFJUUPTVaicjkz65/10/2014 8:53 AM EST from Last 3 Months or Most Recently Relevant to Health Maintenance Results * PSA 3rd Generation (10/13/2018 9:50 AM EDT)ComponentValueRef RangeTest Method Analysis TimePerformed AtPathologist SignaturePSA, Ultrasensitive0.110.00 - 4.00 ng/mLCS-PATH LABComment: Performed at [facility] [address] [place] [address] [facility] [address] [place] [address] CLIA No. [id number] ?? CAP Accreditation No. [id number] Bed Operator: Clint Tamez M.D. Specimen (Source)Anatomical Location / LateralityCollection Method / Volume Collection TimeReceived Time10/13/2018 9:50 AM EDT10/13/2018 11:25 AM EDT Narrative [facility] - 10/14/2018 2:14 AM EDT Ordering Provider: WILLI SANCHEZ Authorizing ProviderResult TypeResult StatusWilli Sanchez MDCHEMISTRY ORDERABLESFinal ResultPerforming OrganizationAddressCity/State/ZIP CodePhone Number [facility] * (ABNORMAL) Hemoglobin A1c (08/04/2016 7:05 PM EST)ComponentValueRef RangeTest MethodAnalysis TimePerformed AtPathologist SignatureHemoglobin A1C6.1(H)4.8 - 5.9 %08/04/2016 11:12 PM ESTMHPN LABEstimated Avg Eqvjcft743pv/dL08/04/2016 11:12 PM ESTMHPN LABComment: The ADA and AACC recommend providing the estimated average glucose result to permit better patient understanding of their HBA1c result. Performed at [facility] of [address] [place] [address] ??([phone] Specimen (Source)Anatomical Location / LateralityCollection Method / Volume Collection TimeReceived TimeBLOOD SPECIMEN / Xyyhzod7608/04/2016 7:05 PM EST 08/04/2016 10:33 PM EST Narrative Authorizing ProviderResult TypeResult StatusAndrew J Gase MDCHEMISTRY ORDERABLES Final ResultPerforming OrganizationAddressCity/State/ZIP CodePhone Number [facility] [address] [place] [address], [facility] [phone] [facility] * US ABDOMINAL LIMITED (04/15/2014 8:53 AM EST)Anatomical RegionLaterality ModalityAbdomenOtherSpecimen (Source)Anatomical Location / Laterality Collection Method / VolumeCollection TimeReceived Time04/15/2014 8:53 AM EST Narrative 04/15/2014 9:13 AM EST FINAL Procedure: ??TUL ??Apr 15 2014 ??8:53AM [id number] ??US ABD LIMITED Reason for Exam: ??^polycythemia, [...] kidneys reveals no hydronephrosis Report Transcribed by: JEANMARIE on Apr 15 2014 ??9:13A Read by: ??CHAPIN BAUTISTA M.D. ??[id number] on Apr 15 2014 ??9:13A Electronically Signed by: ??DR. CHAPIN BAUTISTA M.D. on: ??Apr 15 2014 ?? 9:13A ? Procedure Note Chapin Bautista MD - 04/15/2014 FINAL Procedure: [facility] Apr 15 2014 8:53AM [id number] US ABD LIMITED Reason for Exam: ^polycythemia, [...] 2014 9:13A Read by: CHAPIN BAUTISTA M.D. [id number] on Apr 15 2014 9:13A Electronically Signed by: DR. CHAPIN BAUTISTA M.D. on: Apr 15 2014 9:13A Authorizing ProviderResult TypeResult StatusNasvan POWELL ORDERABLESFinal Result from Last 3 Months or Most Recently Relevant to Health Maintenance Insurance * Guarantor: Juan Miguel Jennings TypeRelation to PatientDate of BirthPhone Billing AddressPersonal/IzlnogChva1950 [address] [address] * Guarantor: Juan Miguel Jennings TypeRelation to PatientDate of BirthPhone Billing AddressPersonal/CxboaoRtqr1950 [address] [address] Advance Directives TypeDate RecordedPatient RepresentativeExplanationACP-Power of Attorney08/31/2013 9:46 AMACP-Advance Directive08/31/2013 9:46 AM * Full Code (Latest Code Status on File) Date ActivatedDate InactivatedComments08/06/2016 9:06 AM08/09/2016 5:53 PM * Full Code Date ActivatedDate InactivatedComments08/04/2016 9:28 PM08/06/2016 9:06 AM * Full Code Date ActivatedDate KqbnflkumlkCrghdsfy85/10/2015 12:42 PM05/19/2015 6:52 PM * Full Code Date ActivatedDate SptbevqzudzIumlzrdd03/7/2015 11:22 AM05/15/2015 12:42 PM * Full Code Date ActivatedDate XpprbdibplhSklzjyoi38/8/2014 2:36 PM05/13/2014 9:20 PM Care Teams Team MemberRelationshipSpecialtyStart DateEnd Date Jordan Wong MD [facility]07/25/19
--- OUTSIDE RECORDS SUMMARY | 2025-05-28 09:51 | XMS_ITS ---
Author Organization [facility] Address [address], [address] [place] [address] Care Team Providers Care Plastic Surgery Technician Name Role Phone Jordan Wong MD Primary Care Provider Active Problems ProblemNoted DateDiagnosed DateAcute osteomyelitis of metatarsal bone of right foot - vdkixk6708/05/2016Morbid yhqvaoj6008/05/2016Type 2 diabetes mellitus with neurologic vgkodlltwadh57/01/2017Diabetic peripheral irfkxrqdvv54/01/2017 Cellulitis and abscess of toe of right foot08/04/2016Obstructive sleep apnea /27/2016S/P JORY - LCX & RCA ([id number]-Dg. kabour)05/13/2014S/P cardiac cath-05/13/14-Dr. landrum05/13/2014 Overview (05/13/2014): Patent stents HTN (hypertension)05/13/20140179Oexmynhmazhums94/08/0440Wufmgwdyxmfz25/31/2014nal xlwisx8603/15/2012 Current Treatment and Therapy Plans No current plan information found. Other Current Plans Therapeutic Phlebotomy* Plan Start Date:10/18/2024 Plan Provider:Newton Stein MD Linked Problems Polycythemia Treatment Medications No medications scheduled. Past Treatment and Therapy Plans Resolved Problems ProblemNoted DateDiagnosed DateResolved DateScreening for colorectal cancer
--- OUTSIDE RECORDS SUMMARY | 2025-05-28 09:51 | XMS_ITS | Encounter Summary ---
Author Organization [facility] Address [address] [place] [address] Care Team Providers Care Lane Marker Installer Name Role Phone Jordan Wong MD Primary Care Provider Jr. Julio Henson DO Unavailable [phone] Alberto Ibrahim DPM Unavailable Jordan Wong MD Unavailable [phone] Julio Huddleston MD Unavailable [phone] Hudson Stevenson MD Unavailable [phone] Kitty Edmond OD Unavailable Encounter Details DateTypeDepartmentCare Team (Latest Contact Info)Czatckbxqto53/16/2025bstract [facility] [address] [place] [phone] Alberto Ibrahim, DPM [address] [place], [place] [phone] Social History Tobacco UseTypesPacks/DayYears UsedDateSmoking Tobacco: FormerCigarettesQuit: [...] on one occasion?Never3PHQ-2AnswerDate Recorded Patient Health Questionnaire-2 Trkji597EducationAnswerDate RecordedWhat is the highest level of school you have completed or the highest degree you have received?High school hbxfidso03/16/2023Sex and Gender InformationValueDate RecordedSex Assigned at BirthNot on fileLegal VuyCocf9708/18/2022 8:05 PM EDT Gender OfpsposhNxsm10/15/2023 8:05 PM EDTSexual OrientationNot on filedocumented as of this encounter Plan of Treatment DateTypeDepartmentCare Team (Latest Contact Info)Qxoxqjtmrwa58/27/2026 11:15 AM ESTOffice Visit [facility] [address] [facility] [place] [address] Alberto Ibrahim DPArin [address] [facility] [place] [place] [address] 07/15/2025 10:00 AM ESTOffice Visit [facility] [place] [facility] [address] [address] Jordan Wong MD [address] [address] 09/11/2025 9:00 AM EDTOffice Visit [facility] [place] [facility] [address] [address] Jordan Wong MD [address] [address] (Fax) documented as of this encounter Visit Diagnoses Not on filedocumented in this encounter Additional Health Concerns AssessmentNoted TimePHQ-9 Depression Total Score: 9:00 AM EST documented as of this encounter Care Teams Team MemberRelationshipSpecialtyStart DateEnd Date Jordan Wong MD [address] [place] [address] PCP - GeneralFamily Medicine10/25/22 Jordan Wong MD [address] [place] [address] PCP - ACO Reach08/05/23 Jr. Julio Henson DO [address] [place] [address] Referring PhysicianOrthopaedic Rksrnri94/12/23 Alberto Ibrahim DPM [address] [facility] [place] [address] Referring VcwbrrlbpBjyfqohx35/12/23 [place] [address] [place] [phone] Referring PhysicianFamily Medicine07/25/24 Hudson Stevenson MD [address] [place] [phone] Referring PhysicianUrolog07/25/24 Kitty Edmond OD [address] [facility] [place] [address] Referring PhysicianOptometry07/25/24documented as of this encounter
--- OUTSIDE RECORDS SUMMARY | 2025-05-28 09:51 | XMS_ITS | Encounter Summary ---
Author Organization [facility] Address [address] [place] [address] Care Team Providers Care Picking Belt Operator Name Role Phone Jordan Wong MD Primary Care Provider Jr. Julio Henson DO Unavailable [phone] Alberto Ibrahim DPM Unavailable [phone] Jordan Wong MD Unavailable [phone] Julio Huddleston MD Unavailable Hudson Stevenson MD Unavailable [phone] Kitty Edmond OD Unavailable Encounter Details DateTypeDepartmentCare Team (Latest Contact Info)Cunfucnjqjs53/16/2025Bamboo flowsheet [facility] [address] [place] [phone] Alberto Ibrahim, DPM [address] [place], [place] [phone] Social History Tobacco UseTypesPacks/DayYears UsedDateSmoking Tobacco: FormerCigarettesQuit: [...] on one occasion?Never3PHQ-2AnswerDate Recorded Patient Health Questionnaire-2 Stedj900EducationAnswerDate RecordedWhat is the highest level of school you have completed or the highest degree you have received?High school avookyws92/16/2023Sex and Gender InformationValueDate RecordedSex Assigned at BirthNot on fileLegal ZrvUvbq5308/18/2022 8:05 PM EDT Gender GpbfzjgrIgrw07/15/2023 8:05 PM EDTSexual OrientationNot on filedocumented as of this encounter Plan of Treatment DateTypeDepartmentCare Team (Latest Contact Info)Cxjqddegfcg13/27/2026 11:15 AM ESTOffice Visit [facility] [address] [place] [address] Alberto Ibrahim DPArin [address] [facility] [place] [address] 07/15/2025 10:00 AM ESTOffice Visit [facility] [address] [address] Jordan Wong MD [address] [address] 09/11/2025 9:00 AM EDTOffice Visit [facility] [place] [address] [address] Jordan Wong MD [address] [address] documented as of this encounter Visit Diagnoses Not on filedocumented in this encounter Additional Health Concerns AssessmentNoted TimePHQ-9 Depression Total Score: 9:00 AM EST documented as of this encounter Care Teams Team MemberRelationshipSpecialtyStart DateEnd Date Jordan Wong MD [address] [place] [address] (Fax) PCP - GeneralFamily Medicine10/25/22 Jordan Wong MD [address] [place] [address] PCP - ACO Reach08/05/23 Jr. Julio Henson DO [address] [place] [address] Referring PhysicianOrthopaedic Kybepos06/12/23 Alberto Ibrahim DPM [address] [facility] [address] Referring AeswfslbgEvkdlifd20/12/23 Julio Huddleston MD [address] [place] [phone] Referring PhysicianFamily Medicine07/25/24 Hudson Stevenson MD [address] [place] [address] Referring PhysicianUrolog07/25/24 Kitty Edmond [address] [facility] [place] [address] Referring PhysicianOptometry07/25/24documented as of this encounter
--- OUTSIDE RECORDS SUMMARY | 2025-05-28 09:51 | XMS_ITS | Clinical Summary ---
Author Organization [facility] Address [address] [place] [address] Care Team Providers Care Cashiers Bussers Food Runners Name Role Phone Joradn Wong MD Primary Care Provider [phone] Allergies Active AllergyReactionsCriticalityNoted DdgpFrpvddswXhyyyqnfvnt01/27/2022 BesomznknDbbjb94/18/8968TabjlqbxjCpwfy13/18/7681TsahkzcwtglQnkcb60/18/2022 WkeapisedpzmAbwul95/18/9249WfwbjaybbZtrmn29/18/2022 Medications MedicationSigDispense QuantityRefillsLast FilledStart DateEnd DateStatus aspirin [...] hammer toes of both feetPH with urinary abntidlqygd12hronic hkaelatjmnmr49Elevated PSAHistory of colon pzouqr77Hx of custodial use of blood jipqaqgm90Non-pressure chronic ulcer of other part of unspecified foot with unspecified knhhhivw41 Ynqqdxgv86Urinary nxgujkd01Urinary frequency olyneuropathy due to type 2 diabetes pdorchur39/14/2022 04/08/2023Status post total left knee qlgozwcrhbf84/29/202111/ifficulty ctdtbyg30/resence of both artificial knee akydnb4205/25/2021 Decreased testosterone level/ependence on other enabling machines and cvzevww43/08/2022Osteoarthritis of knee02/25/2021Internal derangement of left knee/hronic pain Drug-induced woslectp79Foot gzxxtj6009/23/2020mputation of foot dverse reaction to statin qthbucwpwa24 Chronic kidney disease, stage 2 (mild)Microalbuminuria oronary ynkymnklraulemtt82/14/2018 Assessment & Plan (03/23/2022 12:46 PM EDT): No concerning symptoms today Continue GDMT- ASA, toprol, pt is intolerant of Statin and zetia in the past- will need to considerPCSK9 inhibitors. Pt has tried taking crestor, pravastatin, zetia- and was intolerant to statins and zetia in the past. History of myocardial rrqujzdcqj86/14/2018 Assessment & Plan (03/23/2022 11:49 AM EDT): stable Xbvrspbtkaoygl35/14/2018 Assessment & Plan (03/23/2022 11:48 AM EDT): LDL remains not at goal- need to consider PCSK9 inhibitors. Hypertensive rtxcrahi10/14/2018 Assessment & Plan (03/23/2022 11:49 AM EDT): I believe there is a white coat syndrome component to b/p today in office, at home typically 130/80or less per his b/p log Continue toprol and losartan Renal function normal Type 2 diabetes /14/2018 Assessment & Plan (03/23/2022 11:49 AM EDT): A1C currently 5.9 and well controlled- f/u with PCP Old myocardial dlbuzlnvak59iabetic renal oykzukp2912/22/2017 04/08/2023Former alhhxm17therosclerosis of coronary artery without angina jrttzxkb88Fatty liver Testicular russgkojwyrn92laucoma Testosterone liqanxwjqz69cute osteomyelitis of metatarsal bone of right footMorbid zqkavgf59 Cellulitis and abscess of toe of right footiabetic peripheral fcdjhjrmkm82Type 2 diabetes mellitus with neurologic kpvtucjyyuzm29/01/2017Obstructive sleep apnea zjanyblo40/27/2016 04/08/2023S/P drug eluting coronary stent qonmdukxp63S/P cardiac cath Overview (04/08/2023): Patent stents Gdvywernkptk95nal ttzogl53 Immunizations ImmunizationAdministration DatesNext DueInfluenza, High Dose Seasonal, Preservative Free03/05/2019,03/03/2018Influenza, Seasonal, Quadrivalent, Lyzzweappm71/01/2021,03/22/2020Influenza, Vghwgjnbsjf44/01/2016Influenza, injectable, quadrivalent, preservative free04/06/2017,01/23/2016Influenza, seasonal, klqdgauryk60/18/2014,04/06/2013Novel cejggvrcp-G4V4-31, preservative-free04/21/2009Pneumococcal Conjugate PCV 13003/03/2018Pneumococcal Polysaccharide CTS346203/05/2019,12/04/2016Unspecified Sars-Cov-2 Vaccination 06/18/2021,08/28/2020,08/08/2020Zoster, live12/04/2016,04/06/2013 Family History Medical [...] and Gender InformationValueDate Recorded Sex Assigned at ZnrweQfsu54/09/2025 1:25 PM EDTLegal NccUfzv6812/03/2021 12:08 AM EDTGender LrkjywrsTpiy45/09/2025 1:25 PM EDTSexual OrientationHeterosexual or Kreapyxs95/09/2025 1:25 PM EDT Last Filed Vital Signs Vital SignReadingTime TakenCommentsBlood Vwmczzoo104/8007 10:35 AM EDT Bfmjw588212/21/2024 10:35 AM EDTTemperature--Respiratory Rate--Oxygen Saturation 94%12/21/2024 10:35 AM EDTInhaled Oxygen Concentration--Xrpcri982 kg (351 lb) 12/21/2024 10:35 AM INYCwnisb514.1 cm (6' 6 )12/21/2024 10:35 AM EDTBody Mass Index40.56012/21/2024 10:35 AM EDT Plan of Treatment Health MaintenanceDue DateLast DoneCommentsCT Ervoaukbdnuk1952FIT-DNA 1950FIT1950FOBT1950Medicare Annual Wellness (AWV)1950 Tfcuyzcmoarit1950Diabetes: Retinopathy Gidhtmtgc08/07/1962Depression Ldcdmnznf04/07/1964Adult Dtxqhgg1302/10/1974Zoster Vaccines (1 of 2)02/10/2002 12/04/2016, 04/06/2013Fall Risk Xtunpyoqd49/07/2017Diabetes: Hemoglobin A1C 504/02/2025, 03/21/2024, 3COVID-19 Vaccine ( season)/, 03/23/2022, 03/23/2022, Additional history exists Influenza Vaccine (#1)/, 02/28/2023, 04/16/2022, Additional history sqcksfHljgpyfutsu94/14/203107/olorectal Cancer Screening 1Pneumococcal Vaccine: 50+ FlwtxUqpjjofdb07/01/2019, 03/05/2019, 03/03/2018, Additional history existsHIB VaccinesAged OutNo [...] DateEnd Date Jordan Wong MD [address] [place] [address] [facility]03/23/22
--- OUTSIDE RECORDS SUMMARY | 2025-05-28 09:51 | XMS_ITS | Clinical Summary ---
Author Organization [facility] Address [address] [facility] [place] [address] Care Team Providers Care Consulting Project Director Name Role Phone Jordan Wong MD Primary Care Provider Jr. Julio Henson DO Unavailable [phone] Alberto Ibrahim DPM Unavailable Jordan Wong MD Unavailable Julio Huddleston MD Unavailable [phone] Hudson Stevenson MD Unavailable Kitty Edmond OD Unavailable Allergies Active AllergyReactionsCriticalityNoted DateCommentsClindamycinDiarrhea 08/31/2021 Other reaction(s): nausea diarrhea LgozqlmsfUfjyqpa21/28/2022 Other Reaction(s): abdominal pain GlipizideDiarrhea,Zhfphec0408/31/2021 Other Reaction(s): diarrhea MetforminDiarrhea,Ztxpxwt6108/31/2021 Other Reaction(s): diarrhea ItuejdpyafjJqydnio68/28/2022 Other Reaction(s): Other Other reaction(s): abdominal pain and myalgia JoapxkxocgazEpqkpth52/07/2021 Other Reaction(s): abdominal pain Other reaction(s): myalgias Medications MedicationSigDispense QuantityRefillsLast FilledStart DateEnd DateStatus cholecalciferol [...] tablet (20 mg) before bedtime. 180 tablet 5009/15/2025ctive Inclisiran Sodium (LEQVIO SC) Inject under the skinActive Active Problems ProblemNoted DateDiagnosed DateMyalgia due to jkmirs7805/08/2025OAB (overactive bladder)5Acquired hammer toes of both feet01/11/2023PH with urinary vtgbuzavdtc36/08/2023hronic ockeqqgafjgc16/08/2023Elevated PSA01/11/2023Open- angle fqibbmiq17/08/2023History of colon bppftu0501/11/2023Hx of serials librarian use of blood avxpbcxd62/08/2023Hypogonadism male01/11/2023Type 2 diabetes mellitus with diabetic microalbuminuria, without long-term current use of fugznyk9201/11/2023 Presence of both artificial knee npxaet8405/25/2021ecreased testosterone level 05/11/2021ependence on other enabling machines and trxzjpf6403/04/2021 Osteoarthritis of knee02/25/2021hronic pain12/25/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 10/31/2020Mixed gusgylvkthgkwg50/28/2021Foot cvjbbu741Partial nontraumatic amputation of right foot1Partial nontraumatic amputation of foot, left09/11/2020dverse reaction to statin cgfhkkudjd19/07/2021 Zlrmluddqqnakndy40/11/2020History of myocardial koqlmnqqmz36/14/2018 Overview (01/11/2023): Last Assessment & Plan: stable Type 2 diabetes mellitus with diabetic polyneuropathy, without long-term current use of ziyvvso4810/05/2017Former fkfeoo5507/13/2017Atherosclerosis of coronary artery without angina hprywuya89/03/2017Fatty liver04/08/2017Testosterone niqhogkyqz89/03/2017Morbid gjsywot8208/05/2016Obstructive sleep apnea syndrome 10/01/2015Essential vdjetuttffjs09/08/2014 Overview (01/11/2023): Last Assessment & Plan: I believethere is a white coat syndrome component to b/p today in office, at home typically 130/80 or less per his b/p log Continue toprol and losartan Renal function normal S/P drug eluting coronary stent qlfpslfym81/08/5445Lqdkcpghckox68/31/2014 Resolved Problems ProblemNoted DateDiagnosed DateResolved DateAcquired hammer deformity of great toe/Glaucoma of both eyesNocturia /7196Gdczxeal00ressure injury of right foot, stage Type 2 diabetes mellitus with foot ulcer01/11/2023 05/17/2023Type 2 diabetes mellitus with stage 2 chronic kidney disease, without long-term current use of ceseaxk28Urinary kdqcgvuff31/08/2023 05/17/2023Urinary jglzhcq89olyneuropathy due to type 2 diabetes ogrouzhm55Status post total left knee replacement /ifficulty oineptj09/11/2023Unilateral primary osteoarthritis, left kneeInternal derangement of left knee Other chronic painhronic kidney disease, stage 2 (mild)Old myocardial zyeqpejxiz62/06/2018 01/13/2023iabetic renal mvozojb66cute osteomyelitis of metatarsal bone of right footellulitis and abscess of toe of right footiabetic peripheral jqipzqebcg75/01/2017 01/13/2023S/P cardiac cath Overview (01/11/2023): Patent stents Encounters DateTypeDepartmentCare IefsMcdekkspjvz82/16/2025 11:15 AM ESTOffice [facility] [address] [place] [address] Alberto Ibrahim DPM Blister of right foot, initial encounter (Primary Dx); Diabetic polyneuropathy associated with type 2 diabetes mellitus (HCC); Nontraumatic amputation of foot, left (HCC); Nontraumatic amputation of foot, right (HCC)05/21/2025bstract [facility] [address] [place] [address] Alberto Ibrahim DPM 05/21/2025amboo flowsheet [facility] [address] [place] [address] Alberto Ibrahim DPM 05/21/20254482Tpivjc13/03/2025Orders Only [address] [address] Jordan Wong MD Adverse reaction to statin medication (Primary Dx)04/30/2025 9:30 AM ESTOffice Visit [facility] [address] [place] [address] Alberto Ibrahim DPM Diabetic polyneuropathy associated with type 2 diabetes mellitus (HCC) (Primary Dx); Nontraumatic amputation of foot, left (HCC); Nontraumatic amputation of foot, right (HCC)04/30/2025amboo flowsheet [facility] [address] [place] [address] Alberto Ibrahim DPM 04/30/20258067Dnmkar66/04/2025 8:30 AM ESTOffice Visit [facility] [place] [facility] [address] [place] [address] Alberto Ibrahim DPM Diabetic polyneuropathy associated with type 2 diabetes mellitus (HCC) (Primary Dx); Nontraumatic amputation of foot, left (HCC); Nontraumatic amputation of foot, right (HCC)04/09/2025amboo flowsheet [facility] [address] [place] [address] Alberto Ibrahim DPM 04/09/20254243Jgvscp70/27/2025Telephone [facility] [place] [address] [facility] [address] [facility] [address] [place] [address] Jordan Wong MD 03/26/2025bstract [facility] [place] [address] [facility] [address] [facility] [address] [place] [address] Jordan Wong MD 03/26/2025Orders Only [facility] [place] [facility] [address] [facility] [address] [place] [address] Jordan Wong MD 03/26/2025bstract [facility] [place] [facility] [address] [facility] [address] [place] [address] Jordan Wong MD 03/25/2025 4:00 PM EDTOffice Visit [facility] [place] [address] [place] [address] Alberto Ibrahim DPM Diabetic polyneuropathy associated with type 2 diabetes mellitus (HCC) (Primary Dx); Nontraumatic amputation of foot, left (HCC); Nontraumatic amputation of foot, right (HCC); Acquired awzjkyokndl79/20/2025amboo flowsheet [facility] [address] [place] [address] Alberto Ibrahim DPM 03/25/20259742Cqbiar75/14/2025 9:00 AM EDTOffice Visit [facility] [address] [place] [address] Jordan Wong MD Type 2 diabetes mellitus with diabetic polyneuropathy, without long-term current use of insulin ([facility]); Type 2 diabetes mellitus with diabetic microalbuminuria, without long-term current use of insulin ([facility]); Essential hypertension; Microalbuminuria; Mixed hyperlipidemia; Adverse reaction to statin medication; Former smoker; Morbid obesity ([facility]); Gluuztmln39/14/2025amboo flowsheet [facility] [place] [address] [place] [address] Jordan Wong MD 03/19/2025Travelfrom Last 3 Months Immunizations ImmunizationAdministration DatesNext DueInfluenza, P4B2-204341/01/2016Influenza, High Dose Seasonal, Preservative Free04/07/2025,03/05/2019,03/03/2018Influenza, High-dose Seasonal, Quadrivalent, Preservative Free03/04/2019,03/06/2016 Influenza, Seasonal, Quadrivalent, Lkactwmjbi75/25/2023,04/16/2022,05/06/2021, 03/22/2020Influenza, Hxnfzulzwes82/25/2023,04/16/2022,05/06/2021,03/22/2020, 03/05/2019,03/03/2018,04/06/2017,03/06/2016,03/06/2016,01/23/2016,03/23/2014, 04/06/2013Influenza, injectable, quadrivalent, preservative free04/06/2017, 01/23/2016Influenza, seasonal, prvbtkuxsg69/23/2024,03/23/2014,04/06/2013 Influenza, trivalent, uzblpgxtrk39/23/2024Moderna Bivalent Booster Vaccination 03/23/2022Moderna SARS-CoV-2 50mcg/0.5mL Odsdyrf2503/23/2022Novel eyhosfqrd-H2W6-40, preservative-free04/21/2009Pfizer Bivalent Booster 12 Years And Older10/18/2022Pfizer Purple Cap SARS-CoV-2 Stfmoclwfoo86/25/2021,08/27/2020 ,08/08/2020,08/07/2020neumococcal Conjugate PCV 1310,03/03/2018, 03/02/2018Pneumococcal Polysaccharide GSNA2093,03/04/2019,03/03/2018RSV, recombinant, protein subunit RSVpreF, adjuvant reconstitu, 120mcg/0.5mL, PF (Arexvy)01/31/20258620RANU-JSO-0 (COVID-19) vaccine, mRNA, spike protein, LNP, bivalent, preservative free, 30 mcg/0.3 mLdose, palomo-sucrose formulation 03/23/20223996XWJB-ZmB-0, Uohimucosnl97/25/2021,08/08/2020Tdap01/31/2025Zoster, Qjpujpllxmr16/28/2025Zoster, live12/04/2016,04/06/2013,04/05/2013 Family History Medical HistoryRelationNameCommentsColon cancerBrotherDiabetesBrotherHeart diseaseFatherDiabetesMotherHeart [...] on one occasion?Never04/12/2023HQ-2AnswerDate Recorded Patient Health Questionnaire-2 Asxdb748/14/2025EducationAnswerDate RecordedWhat is the highest level of school you have completed or the highest degree you have received?High school upznizsg83/16/2023Sex and Gender InformationValueDate RecordedSex Assigned at BirthNot on fileLegal VctMoxs9708/18/2022 8:05 PM EDT Gender GftfupqvDiow42/15/2023 8:05 PM EDTSexual OrientationNot on file Last Filed Vital Signs Vital SignReadingTime TakenCommentsBlood Aizzzohb029/6803/19/2025 9:47 AM EDT Zdkcv814903/19/2025 9:47 AM EDTTemperature--Respiratory Rate--Oxygen Bumofmufgm56% 03/19/2025 9:47 AM EDTInhaled Oxygen Concentration--Zugnho493 kg (347 lb) 05/21/2025 11:25 AM GBYSutiyw730.1 cm (6' 6 )05/21/2025 11:25 AM ESTBody Mass Index40. 11:25 AM EST Plan of Treatment DateTypeDepartmentCare Team (Latest Contact Info)Bwjkdrkujkw34/27/2026 11:15 AM ESTOffice Visit [facility] [address] [place] [address] Alberto Ibrahim, DPArin [address] [place] [address] 07/15/2025 10:00 AM ESTOffice Visit [facility] [address] Jordan Wong MD [address] [address] 09/11/2025 9:00 AM EDTOffice Visit [facility] [address] Jordan Wong MD [address] [address] (Fax) Health MaintenanceDu DateLast DoneCommentsCT Prvpxxphumar1952FIT-DNA 1952FIT1952FOBT02/11/19528671Kmnhfeohtuaps1952Diabetes: Hemoglobin A1C/01/2025, 09/12/2024, 03/21/2024, Additional history exists Medicare Annual Wellness (AWV)602/, 07/25/2024, 05/17/2023, Additional history existsDiabetes: Urine Protein Stedwzqgw40/, 11/11/2020, 12/21/2017Diabetes: Retinopathy Euelyjott02/, 11/25/2021, 11/12/2020, Additional history xtaxpnMgtztecclwv29/14/203107/ Colorectal Cancer Mrslooqxa33/14/2031neumococcal Vaccine: 65+ YearsCompleted 03/06/2019, 03/05/2019, 03/04/2019, Additional history existsInfluenza Vaccine Rubsuolta11/02/2025, 03/28/2024, 03/28/2024, Additional history exists Procedures Procedure NamePriorityDate/TimeAssociated DiagnosisCommentsHEMOGLOBIN S3VHfyxjfh 03/13/2025 8:14 AM EDT Type 2 diabetes mellitus with diabetic polyneuropathy, without long-term current use of insulin (HCC) Type 2 diabetes mellitus with diabetic microalbuminuria, without long-term current use of insulin (HCC) POCT ZNGUMJLIQOABApegdzu37/15/2025 9:34 AM EDT Essential hypertension Microalbuminuria Type 2 diabetes mellitus with diabetic microalbuminuria, without long-term current use of insulin (HCC) Type 2 diabetes mellitus with diabetic polyneuropathy, without long-term current use of insulin (HCC) DIABETIC RETINOPATHY SCREENING - OU - BOTH BACGOsxerhk94/26/2024 9:57 AM EDT UFZUZPBMXXLFznxqyg63/14/2021 12:00 PM EDT from Last 3 Months [...] Volume Collection TimeReceived TimeBloodVenous blood specimen / Czjokna1503/13/2025 8:14 AM EDT1 3:54 PM EDT Narrative Resulting Agency Comment Performing Organization Information ?Site ID: [id number] ?Name: [facility] ?Address: [address] [place] [address], [address] [place] [id number] ?Director: Toan Lara MD Authorizing ProviderResult TypeResult Shantelle Wong MDKIOWA DISTRICT [facility] BLOOD ORDERABLESFinal ResultPerforming OrganizationAddressCity/State/ZIP CodePhone Number QUEST * (ABNORMAL) POCT microalbumin manually resulted (09/18/2024 9:34 AM EDT) ComponentValueRef RangeTest MethodAnalysis TimePerformed AtPathologist SignatureMICROALBUMIN, XWXQW994IGK/CREAT KZGHH286OFKTC BROGO28Fuznmmuo (Source)Anatomical Location / LateralityCollection Method / VolumeCollection TimeReceived LqwjRnvnl19/15/2025 9:34 AM EDT Narrative Authorizing ProviderResult TypeReskellen Wong MDPOINT OF CARE TEST ENTER/EDIT ORDERABLESFinal Result * Diabetic Retinopathy Screening - OU - Both Eyes (09/30/2023 9:57 AM EDT) Anatomical RegionLateralityModalityHeadOther Narrative Authorizing ProviderResult TypeResult StatusJanel Strah ODOPHTH PHOTOGRAPHYFinal Result * Colonoscopy (12/17/2020 12:00 PM EDT)Anatomical RegionLateralityModality EndoscopySpecimen (Source)Anatomical Location / LateralityCollection Method / VolumeCollection TimeReceived Time12/17/2020 12:00 PM EDT Narrative 12/17/2020 12:00 PM EDT PERFORMED AT [facility] LOCATION:[id number] Procedure Note CONVERSION, GENERIC - 10/20/2022 PERFORMED AT [facility] LOCATION:[id number] Authorizing ProviderResult TypeResult StatusEdarsh Wong MDENDOSCOPY PROCEDURE ORDERABLESFinal Result from Last 3 Months or Most Recently Relevant to Health Maintenance Insurance * Guarantor: Juan Miguel Jennings TypeRelation to PatientDate of BirthPhone Billing AddressPersonal/JkmfroUxbs1950 [address] [address] Advance Directives TypeDate RecordedPatient RepresentativeExplanationAdvance Directives and Living Will Living WillAdvance Directives and Living Will11/20/2019 2018-05-09 Power Of Rn Informatics Care Teams Team MemberRelationshipSpecialtyStart DateEnd Date Jordan Wong MD [address] [address] PCP - GeneralFamily Medicine10/25/22 Jordan Wong MD [address] [place] [address] PCP - ACO Reach08/05/23 Jr. Julio Henson DO [address] [place] [address] Referring PhysicianOrthopaedic Exxnjaa78/12/23 Alberto Ibrahim DPM [address] [facility] [place] [address] Referring IyqstdhxlVmabseno29/12/23 Julio Huddleston MD [address] [place] [address] Referring PhysicianFamily Medicine07/25/24 Hudson Stevenson MD [address] [place] [address] Referring PhysicianUrolog07/25/24 Kitty Edmond OD [address] [facility] [place] [address] Referring PhysicianOptometry07/25/24
--- OUTSIDE RECORDS SUMMARY | 2025-05-28 09:51 | XMS_ITS | Encounter Summary ---
Author Organization [facility] Address [address] [facility] [place] [address] Care Team Providers Care City Superintendent Of Schools Name Role Phone Jordan Wong MD Primary Care Provider Jr. Julio Henson DO Unavailable [phone] Alberto Ibrahim DPM Unavailable [phone] Jordan Wong MD Unavailable [phone] Julio Huddleston MD Unavailable Hudson Stevenson MD Unavailable Kitty Edmond OD Unavailable Encounter Details DateTypeDepartmentCare Team (Latest Contact Info)Uwywsppvrwf71/16/2025Travel Social History Tobacco UseTypesPacks/DayYears UsedDateSmoking Tobacco: FormerCigarettesQuit: [...] on one occasion?Never04/12/2023HQ-2AnswerDate Recorded Patient Health Questionnaire-2 Dqcew987EducationAnswerDate RecordedWhat is the highest level of school you have completed or the highest degree you have received?High school mrgvkwaw49/16/2023Sex and Gender InformationValueDate RecordedSex Assigned at BirthNot on fileLegal DrbGftd6208/18/2022 8:05 PM EDT Gender DiwkejjiBspn24/15/2023 8:05 PM EDTSexual OrientationNot on filedocumented as of this encounter Plan of Treatment DateTypeDepartmentCare Team (Latest Contact Info)Ahvlrmdbhvr46/27/2026 11:15 AM ESTOffice Visit [facility] [address] [place] [address] Alberto Ibrahim DPM [address] [facility] [place], [place] [phone] 07/15/2025 10:00 AM ESTOffice Visit [facility] [place] [address] [facility] [address] [address] Jordan Wong MD [address] [address] (Fax) 09/11/2025 9:00 AM EDTOffice Visit [facility] [address] [facility] [address] [address] Jordan Wong MD [address] [address] (Fax) documented as of this encounter Visit Diagnoses Not on filedocumented in this encounter Additional Health Concerns AssessmentNoted TimePHQ-9 Depression Total Score: 9:00 AM EST documented as of this encounter Care Teams Team MemberRelationshipSpecialtyStart DateEnd Jordan Wong MD [address] [address] (Fax) PCP - GeneralFamily Medicine10/25/22 Jordan Wong MD [address] [address] PCP - ACO Reach08/05/23 Jr. Julio Henson DO [address] [place] [address] Referring PhysicianOrthopaedic Qcxxxfr95/12/23 Alberto Ibrahim DPM [address] [facility] [place], [place] [address] Referring RnpouerwuPsawabol69/12/23 Julio Huddleston MD [address] [place] [address] Referring PhysicianFamily Medicine07/25/24 Hudson Stevenson MD [address] [place] [phone] Referring PhysicianUrolog07/25/24 Kitty Edmond OD [address] [facility] [place] [address] Referring PhysicianOptometry07/25/24documented as of this encounter
== END 2025-05-28 09:48 | disposition home or self-care (01) ==
LOC: WC 09:48
PROVIDERS: PCP Family Medicine; Visit Provider Physician Assistant
DX: E11.621 Type 2 diabetes mellitus with foot ulcer (principal); L97.412 Non-pressure chronic ulcer of right heel and midfoot with fat layer exposed
CPT/HCPCS: G0463